=== PATIENT | female | born 1955 | race Caucasian/White ===

== ENCOUNTER 2017-09-12 20:59 | Emergency (ER) | payer OTHER ==
[~2017-09-12] VITALS: Ht 149.9 cm; Wt 100.5 kg
[~2017-09-12 20:59] MED LIST: ATOR-24 PO; DFL100 PO; EFF375 PO; HYDR-4079 PO; HYDR12.56 PO; LANS30TA3 SL; MCRK20 PO; METO50TA17 PO; PLV75 PO; TRAZ-120 PO
[2017-09-12 21:03] VITALS: TEMP 36.9; Ht 149.9 cm; Wt 100.5 kg
[2017-09-12] MEDS ORDERED: ACETAMINOPHEN IV 100 ML IV ONE (22:15)
[2017-09-12 22:36] LABS: BASO % 0.7 %; BASO ABS # 0.05 K/uL (0-0.2); COMPLETE YES; EOS % 7.5 %; HEMATOCRIT 31.1 % (37-47); IG% 0.4 %; LYMPH % 19.6 %; LYMPH ABS # 1.48 K/uL (1.2-3.4); MEAN CELL VOLUME 86.6 fL (80-100); MEAN CORPUSCULAR HEMOGLOBIN 26.2 pg (25-34); MEAN CORPUSCULAR HGB CONC 30.2 g/dl (32-36); MEAN PLATELET VOLUME 10.3 fL (7.4-10.4); MONO % 7.4 %; NEUT % 64.4 %; PLATELET COUNT 240 K/uL (130-400); RED BLOOD COUNT 3.59 M/uL (4.2-5.4); WHITE BLOOD COUNT 7.55 K/uL (4.8-10.8)
[2017-09-12 22:49] LABS: BUN/CREATININE RATIO 9.9 (10-20); CALCIUM 8.6 mg/dl (8.5-10.1); CREATININE 1.26 mg/dl (0.60-1.20); POTASSIUM 3.6 mmol/L (3.5-5.1)
[2017-09-12 22:51] LABS: ALB/GLOB RATIO 0.6 (0.9-2)
[2017-09-12] MEDS ORDERED: CLOP1TAB15 PO (22:57)
[2017-09-12] MEDS ORDERED: METO25TA56 PO (22:58)
[2017-09-12] MEDS ORDERED: VENL150C PO (22:59)
[2017-09-12] MEDS ORDERED: DULO-24 PO (23:01)
[2017-09-12] MEDS ORDERED: PANT40TA PO (23:02)
[2017-09-12] MEDS ORDERED: CEFTRIAXONE SOD INJ 1 GM ADDVIAL IV STA (23:13)
[2017-09-12] MEDS ORDERED: KETOROLAC TROMETHAMINE 30 MG/ML VIAL IV STA (23:22)
[2017-09-13] MEDS ORDERED: SULF800T23 PO (00:01)
[2017-09-13] MEDS ORDERED: CEPH500C PO (00:01)
--- NOTE | 2017-09-13 00:13 | EMERGENCY ROOM VISIT NOTE ---
History First contact with patient: 22:04 Chief Complaint: LEG PAIN,LEG INJURY Stated Complaint: INFECTION IN L LEG History of Present Illness The patient is a 61 year old female who presents to the Emergency Room with complaints of pain in her left leg that has worsened over the past 4 or 5 days. Patient states that she had a mechanical fall about a week ago where she injured the leg. She has been able to walk despite that injury. She noticed today it has increased redness that was not present. She has been taking naproxen at home with no improvement of symptoms. Patient is not diabetic. She is not having fever or chills. She rates her discomfort a 5/10. Review of Systems More than 10 systems were reviewed and otherwise negative with the exception of history of present illness. Past Medical/Surgical History Medical Problems: (1) CKD (chronic kidney disease), stage III (2) Colon cancer (3) GERD (gastroesophageal reflux disease) (4) HTN (hypertension) (5) Osteoarthritis (6) Renal calculi Surgical Problems: (1) H/O ileostomy (2) History of colectomy (3) History of hysterectomy (4) S/P cholecystectomy Family History FH: heart disease FHx: cancer Hypertension Social History Smoking Status: Never Smoker Alcohol Use: none Drug Use: none Marital Status: Housing Status: lives with significant other Occupation Status: retired Current/Historical Medications Scheduled Atorvastatin (Lipitor), 40 MG PO DAILY Cephalexin Monohydrate (Keflex), 500 MG PO TID Clopidogrel (Plavix), 75 MG PO DAILY Duloxetine HCl (Cymbalta), 20 MG PO DAILY Metoprolol Tartrate (Lopressor) (Lopressor), 25 MG PO BID Pantoprazole (Protonix), 40 MG PO BID Sulfa/Trimethoprim (Bactrim Ds 800MG/160MG), 1 TAB PO BID Venlafaxine Hcl (Effexor Xr), 150 MG PO DAILY Physical Exam Vital Signs Date Time Temp Pulse Resp B/P (MAP) Pulse Ox O2 Delivery O2 Flow Rate FiO2 09/12/17 22:53 94 18 126/82 95 Room Air 09/12/17 21:29 94 16 130/82 97 Room Air 09/12/17 21:07 103 09/12/17 21:03 36.9 102 18 179/115 96 Room Air Physical Exam VITALS: Vitals are noted on the nurse's note and reviewed by myself. Vital signs stable. GENERAL: Well-developed, well-nourished, white female, who is in no acute distress and resting comfortably. Patient is cooperative with the examination. HEART: Regular rate and rhythm without murmurs gallops or rubs. LUNGS: Clear to auscultation bilaterally without wheezes, rales or rhonchi. No retractions or accessory muscle use. MUSCULOSKELETAL: There is an obvious cellulitis to the anterior left lower extremity measuring approximately 8 x 6 cm in dimension. There are 2 very shallow abrasions over this did appear to be the cause of the cellulitis. The wounds were cleansed and dressed. There is no posterior calf tenderness. Neurovascular status is intact distally. No lymphangitis patent. NEURO: Patient was alert and oriented to person place and time. CN II through XII grossly intact. Medical Decision & Procedures Laboratory Results 09/12/17 22:10 Red Blood Count 3.59, Mean Corpuscular Volume 86.6, Mean Corpuscular Hemoglobin 26.2, Mean Corpuscular Hemoglobin Concent 30.2, Mean Platelet Volume 10.3, Neutrophils (%) (Auto) 64.4, Lymphocytes (%) (Auto) 19.6, Monocytes (%) (Auto) 7.4, Eosinophils (%) (Auto) 7.5, Basophils (%) (Auto) 0.7, Neutrophils # (Auto) 4.86, Lymphocytes # (Auto) 1.48, Monocytes # (Auto) 0.56, Eosinophils # (Auto) 0.57, Basophils # (Auto) 0.05 09/12/17 22:10 Test 09/12/17 22:10 09/12/17 22:42 White Blood Count 7.55 K/uL (4.8-10.8) Red Blood Count 3.59 M/uL (4.2-5.4) Hemoglobin 9.4 g/dL (12.0-16.0) Hematocrit 31.1 % (37-47) Mean Corpuscular Volume 86.6 fL (80-100) Mean Corpuscular Hemoglobin 26.2 pg (25-34) Mean Corpuscular Hemoglobin Concent 30.2 g/dl (32-36) Platelet Count 240 K/uL (130-400) Mean Platelet Volume 10.3 fL (7.4-10.4) Neutrophils (%) (Auto) 64.4 % Lymphocytes (%) (Auto) 19.6 % Monocytes (%) (Auto) 7.4 % Eosinophils (%) (Auto) 7.5 % Basophils (%) (Auto) 0.7 % Neutrophils # (Auto) 4.86 K/uL (1.4-6.5) Lymphocytes # (Auto) 1.48 K/uL (1.2-3.4) Monocytes # (Auto) 0.56 K/uL (0.11-0.59) Eosinophils # (Auto) 0.57 K/uL (0-0.5) Basophils # (Auto) 0.05 K/uL (0-0.2) RDW Standard Deviation 50.0 fL (36.4-46.3) RDW Coefficient of Variation 15.8 % (11.5-14.5) Immature Granulocyte % (Auto) 0.4 % Immature Granulocyte # (Auto) 0.03 K/uL (0.00-0.02) Anion Gap 8.0 mmol/L (3-11) Est Creatinine Clear Calc Drug Dose 47.7 ml/min Estimated GFR () 52.5 Estimated GFR (Non- 45.3 BUN/Creatinine Ratio 9.9 (10-20) Calcium Level 8.6 mg/dl (8.5-10.1) Total Bilirubin 0.2 mg/dl (0.2-1) Aspartate Amino Transf (AST/SGOT) 14 U/L (15-37) Alanine Aminotransferase (ALT/SGPT) 16 U/L (12-78) Alkaline Phosphatase 99 U/L (45-117) Total Protein 7.1 gm/dl (6.4-8.2) Albumin 2.8 gm/dl (3.4-5.0) Globulin 4.3 gm/dl (2.5-4.0) Albumin/Globulin Ratio 0.6 (0.9-2) Bedside Lactic Acid Venous 1.17 mmol/L (0.90-1.70) Medications Administered Medications (Trade) Dose Ordered Sig/Sarah Route Start Time Stop Time Status Last Admin Dose Admin Acetaminophen 100 ml @ 400 mls/hr NOW ONCE IV 09/12/17 22:15 09/12/17 22:29 DC 09/12/17 22:43 400 MLS/HR Ceftriaxone Sodium (Rocephin Inj) 1 gm NOW STAT IV 09/12/17 23:13 09/12/17 23:14 DC 09/12/17 23:21 1 GM Ketorolac Tromethamine (Toradol Inj) 30 mg NOW STAT IV 09/12/17 23:22 09/12/17 23:23 DC 09/12/17 23:32 30 MG ED Course Physical exam and history were performed. Nursing notes, EMR, and Medication List were personally reviewed. Patient appears to have a cellulitis of her left lower extremity. This appears to have started after she suffered mechanical fall with abrasion to the front of her leg. IV access was established and labs were obtained. Lactic acid was gathered as well as blood cultures. The patient was given Toradol and Tylenol through her IV for comfort. The patient's blood work is as above and was reviewed. She does not have a significantly elevated white blood cell count, gross anemia, bandemia, or significant electrolyte imbalance. Lactic acid is negative. Blood cultures are pending. Overall I suspect the patient's discomfort is from the infection. She was treated here in the department with Rocephin. She will be given outpatient prescriptions for Bactrim and Keflex. The wounds were cleansed and dressed. The patient needs to follow with her primary care physician next few days. She was otherwise invited back to the ER with any new, worsening, or concerning symptoms. The chart was completed utilizing [email or web address] Speech Voice Recognition Software. Grammatical errors, random word insertions, pronoun errors, and incomplete sentences are an occasional consequence of this system due to software limitations, ambient noise, and hardware issues. Any formal questions or concerns about the content, text, or information contained within the body of this dictation should be directly addressed to the provider for clarification. . Medical Decision Differential diagnosis: Etiologies such as cellulitis, abscess, MRSA infection, DVT, necrotizing fasciitis, dermatitis, drug eruption, as well as others were entertained.. Impression Primary Impression: Cellulitis of left leg Departure Information Dispostion Home / Self-Care Condition GOOD Prescriptions Cephalexin Monohydrate (Keflex) 500 Mg Cap 500 MG PO TID for 10 Days, #30 CAP Prov: Abdias Soto PA-C 09/13/17 Sulfa/Trimethoprim (Bactrim Ds 800MG/160MG) Tab 1 TAB PO BID for 10 Days, #20 TAB Prov: Abdias Soto PA-C 09/13/17 Forms HOME CARE DOCUMENTATION FORM, IMPORTANT VISIT INFORMATION Patient Instructions My [facility] Additional Instructions You were seen and evaluated today on an emergency basis only. This is not a substitute for, or an effort to provide, complete comprehensive medical care. It is not possible to recognize and treat all injuries or illnesses in a single emergency department visit. For this reason it is recommended that you followup with your primary care physician this week for ongoing care and evaluation. Trimethoprim-Sulfamethoxazole(Bactrim DS): Take one pill twice daily for 10 days for your skin infection. All antibiotics can cause diarrhea. If this occurs and you feel worse or it does not resolve in 1-2 days follow up with your doctor or return to the Emergency Department as this could be signs of serious underlying problems. Any medication can cause an allergic reaction, stop the pills immediately and return to the ER for rash, hives, breathing difficulties, or swelling. Cephalexin(Keflex) 500mg: Take one pill 3 times daily for 10 days for your skin infection. All antibiotics can cause diarrhea. If this occurs and you feel worse or it does not resolve in 1-2 days follow up with your doctor or return to the Emergency Department as this could be signs of serious underlying problems. Any medication can cause an allergic reaction, stop the pills immediately and return to the ER for rash, hives, breathing difficulties, or swelling. You are welcome to return to the emergency department anytime with new, worsening, or concerning symptoms.
[2017-09-13 00:24] VITALS: BP 118/84; PULSE 91; O2SAT 95
== END 2017-09-13 00:25 | disposition home or self-care (01) ==
LOC: EDBD 20:59 → C.EDC 21:03
DX: L03.116 Cellulitis of left lower limb (principal); I12.9 Hypertensive chronic kidney disease with stage 1 through stage 4 chronic kidney disease, or unspecified chronic kidney disease; N18.3 Chronic kidney disease, stage 3 (moderate); K21.9 Gastro-esophageal reflux disease without esophagitis; M19.90 Unspecified osteoarthritis, unspecified site; Z85.038 Personal history of other malignant neoplasm of large intestine; Z90.710 Acquired absence of both cervix and uterus; Z90.49 Acquired absence of other specified parts of digestive tract; Z93.2 Ileostomy status; Z79.899 Other long term (current) drug therapy; Z82.49 Family history of ischemic heart disease and other diseases of the circulatory system; Z80.9 Family history of malignant neoplasm, unspecified

== ENCOUNTER 2018-05-05 14:31 | Emergency (ER) | payer OTHER ==
[~2018-05-05] VITALS: Ht 149.9 cm; Wt 106.8 kg
[~2018-05-05 14:31] MED LIST changes: +ALBUAER INH; +CLOP1TAB15 PO; -DFL100 PO; -EFF375 PO; +FLUT1SPR12 NAE; +FLVHFA220 INH; +GABA-113 PO; -HYDR-4079 PO; +HYDR-5688 PO; -HYDR12.56 PO; +HYDR25CA PO; -LANS30TA3 SL; +LDDP5 TD; -MCRK20 PO; +METO25TA56 PO; -METO50TA17 PO; +MGNO400 PO; +PANT40TA PO; -PLV75 PO; +PRD20 PO; +RIBO1TAB4 PO; -TRAZ-120 PO; +TRAZ50TA35 PO; +VENL150C56 PO
[2018-05-05 14:35] VITALS: TEMP 36.7; O2SAT 97; Ht 149.9 cm; Wt 106.8 kg
[2018-05-05 15:14] LABS: HEMOGLOBIN 13.9 g/dL (12.0-16.0); MEAN CELL VOLUME 93.4 fL (80-100); MEAN CORPUSCULAR HEMOGLOBIN 29.5 pg (25-34); MEAN CORPUSCULAR HGB CONC 31.6 g/dl (32-36); MEAN PLATELET VOLUME 10.9 fL (7.4-10.4); PLATELET COUNT 219 K/uL (130-400); RED CELL DISTRIBUTION WIDTH CV 17.2 % (11.5-14.5); RED CELL DISTRIBUTION WIDTH SD 58.7 fL (36.4-46.3); WHITE BLOOD COUNT 10.22 K/uL (4.8-10.8)
--- NOTE | 2018-05-05 15:14 | DIAGNOSTIC IMAGING REPORT ---
CHEST ONE VIEW PORTABLE HISTORY: 62 years-old Female CP acute atypical chest pain COMPARISON: Chest radiograph 04/23/2018 TECHNIQUE: Portable AP view of the chest FINDINGS: Cardiomediastinal and hilar silhouettes are within normal limits. No pneumothorax, pleural effusion, focal airspace consolidation or overt pulmonary edema. Degenerative changes of the shoulders and spine. Small hiatal hernia. IMPRESSION: 1. No acute process. 2. Small hiatal hernia. The above report was generated using voice recognition software. It may contain grammatical, syntax or spelling errors. Electronically signed by: Mack Calderon M.D. 05/05/2018 3:13 PM Dictated Date/Time: 05/05/2018 3:12 PM
--- NOTE | 2018-05-05 15:21 | EMERGENCY ROOM VISIT NOTE ---
History Report prepared by Latonya: Bhavin Fenton Under the Supervision of: Dr. Kurt Brock M.D. First contact with patient: 15:01 Chief Complaint: CHEST PAIN Stated Complaint: CHEST PAIN Nursing Triage Summary: Patient arrives via ALS from home with complaints of midsternal chest pain and headache. PT rates pain 8/10. PT was just admitted to hospital from this past Tuesday through Tuesday. Went to her PCP today and they wanted her to come back for same symptoms. EMS administered 2 nitro. PT complaining of SOB. History of Present Illness The patient is a 62 year old female who presents to the Emergency Room with complaints of constant, left-sided chest pain beginning 6 days ago. She currently rates her symptoms an 8/10 in severity. The patient states she was discharged from the hospital on Tuesday for a headache and shortness of breath. She reports her symptoms have been present since. She states she is also short of breath. The patient notes she followed-up with Dr. Chand, PCP today and was sent to the ED. She states she was given nitroglycerin in route, but it did not help her symptoms. The patient denies a history of smoking. Source of History: patient Onset: 6 days ago Position: chest (left) Symptom Intensity: 8/10 Timing: constant Associated Symptoms: + SOB Review of Systems See HPI for pertinent positives and negatives. A total of ten systems were reviewed and were otherwise negative. Past Medical & Surgical Medical Problems: (1) Asthma (2) Chest pain (3) CKD (chronic kidney disease), stage III (4) Colon cancer (5) COPD exacerbation (6) Depression (7) GERD (gastroesophageal reflux disease) (8) HLD (hyperlipidemia) (9) HTN (hypertension) (10) Hypoxia (11) Osteoarthritis (12) Renal calculi Surgical Problems: (1) H/O ileostomy (2) History of colectomy (3) History of hysterectomy (4) S/P cholecystectomy Family History FH: heart disease FHx: cancer Hypertension Social History Smoking Status: Never Smoker Alcohol Use: none Drug Use: none Marital Status: Housing Status: lives with significant other Occupation Status: retired Current/Historical Medications Scheduled Atorvastatin (Lipitor), 40 MG PO DAILY Clopidogrel (Plavix), 75 MG PO DAILY Fluticasone Propionate (Flovent Hfa), 2 PUFFS INH BID Gabapentin (Gabapentin), 300 MG PO TID Lidocaine (Lidocaine), 1 PATCH TOP QAM Magnesium Oxide (Mg Supplement (Magnesium Oxide), 241.3 MG PO QAM Metoprolol Tartrate (Lopressor), 25 MG PO BID Pantoprazole (Protonix), 40 MG PO BID Riboflavin (Riboflavin), 400 MG PO DAILY Trazodone Hcl (Desyrel), 150 MG PO HS Scheduled PRN Fluticasone Propionate (Nasal) (Flonase Allergy Relief Ch), 2 SPRAYS LIONEL DAILY PRN for Allergy Symptoms Hydroxyzine HCl (Hydroxyzine Pamoate), 25 MG PO BID PRN for Anxiety Venlafaxine Hcl (Effexor Extended Rel), 150 MG PO DAILY PRN for Anxiety Allergies Coded Allergies: Salicylates (Verified Allergy, Severe, SHORTNESS OF BREATH, 04/23/18) pruritus and swelling of throat. Meperidine (Unverified Allergy, Intermediate, ITCH, 04/23/18) Morphine and Related (Unverified Allergy, Intermediate, ITCH, 04/23/18) Morphine (Verified Allergy, Mild, ITCHING, 05/26/15) Aspirin (Verified Allergy, Unknown, ., 05/26/15) Hydromorphone (Unverified Allergy, Unknown, RASH/ITCHING, 07/11/14) Iodinated Diagnostic Agents (Verified Allergy, Unknown, `, 04/23/18) Tramadol (Verified Adverse Reaction, Mild, itch, 10/28/14) Physical Exam Vital Signs Date Time Temp Pulse Resp B/P (MAP) Pulse Ox O2 Delivery O2 Flow Rate FiO2 05/05/18 19:07 80 16 132/76 98 05/05/18 18:29 98 05/05/18 16:41 90 17 149/80 96 Room Air 05/05/18 14:56 103 05/05/18 14:35 36.7 100 20 131/90 97 Room Air 05/05/18 14:35 97 Room Air 05/05/18 14:35 97 Room Air Physical Exam Physical Exam GENERAL: She is oriented to person, place, and time. She appears well- developed and well-nourished. She does not appear distressed. HENT: Exam performed. Head: Normocephalic and atraumatic. Right Ear: External ear normal. No mastoid tenderness. Left Ear: External ear normal. No mastoid tenderness. Mouth/Throat: The oropharynx is clear and moist. No trismus in the jaw. No dental abscesses or uvula swelling. No oropharyngeal exudate or tonsillar abscesses. EYES: Conjunctivae and EOM are normal. Pupils are equal, round, and reactive to light. Right eye exhibits no discharge. Left eye exhibits no discharge. No scleral icterus. NECK: Normal range of motion. Neck supple. No JVD present. No spinous process tenderness present. No carotid bruit present. No rigidity. No tracheal deviation and normal range of motion present. No Brudzinski's sign and no Kernig 's sign noted. CV: Normal rate, regular rhythm, normal heart sounds and intact distal pulses. There is no peripheral edema. Palpable radial pulses bue. PULM/CHEST: Effort normal and breath sounds normal. No respiratory distress. No stridor. She has no wheezes. She has no rales. Chest Wall: She exhibits no tenderness. ABD: The abdomen is soft. Bowel sounds are normal. She has no distension. No mass is present. There is no tenderness. There is no rebound, no guarding, no Wylie's sign and no tenderness at McBurney's point. Rovsig negative MUSC/SKEL: Normal range of motion. There is no peripheral edema, tenderness or deformity. LYMPH: No cervical adenopathy. NEURO: She is alert and oriented to person, place, and time. She has normal strength. No cranial nerve deficit or sensory deficit. Coordination and gait normal. GCS eye subscore is 4. GCS verbal subscore is 5. GCS motor subscore is 6. Cerebellar tests wnl. SKIN: Skin is warm and dry. She is not diaphoretic. PSYCH: She has a normal mood and affect. Behavior is normal. Judgment and thought content normal. Medical Decision & Procedures ER Provider Diagnostic Interpretation: X-ray: Per my interpretation, radiologist review. CHEST ONE VIEW PORTABLE HISTORY: 62 years-old Female CP acute atypical chest pain COMPARISON: Chest radiograph 04/23/2018 TECHNIQUE: Portable AP view of the chest FINDINGS: Cardiomediastinal and hilar silhouettes are within normal limits. No pneumothorax, pleural effusion, focal airspace consolidation or overt pulmonary edema. Degenerative changes of the shoulders and spine. Small hiatal hernia. IMPRESSION: 1. No acute process. 2. Small hiatal hernia. The above report was generated using voice recognition software. It may contain grammatical, syntax or spelling errors. Electronically signed by: Mack Calderon M.D. 05/05/2018 3:13 PM Dictated Date/Time: 05/05/2018 3:12 PM Laboratory Results 05/05/18 14:30 05/05/18 14:30 Test 05/05/18 14:30 05/05/18 15:25 05/05/18 18:25 Red Blood Count 4.71 M/uL (4.2-5.4) Mean Corpuscular Volume 93.4 fL (80-100) Mean Corpuscular Hemoglobin 29.5 pg (25-34) Mean Corpuscular Hemoglobin Concent 31.6 g/dl (32-36) RDW Standard Deviation 58.7 fL (36.4-46.3) RDW Coefficient of Variation 17.2 % (11.5-14.5) Mean Platelet Volume 10.9 fL (7.4-10.4) Anion Gap 9.0 mmol/L (3-11) Est Creatinine Clear Calc Drug Dose 45.6 ml/min Estimated GFR () 48.0 Estimated GFR (Non- 41.4 BUN/Creatinine Ratio 23.0 (10-20) Calcium Level 9.6 mg/dl (8.5-10.1) Total Bilirubin 0.2 mg/dl (0.2-1) Aspartate Amino Transf (AST/SGOT) 23 U/L (15-37) Alanine Aminotransferase (ALT/SGPT) 40 U/L (12-78) Alkaline Phosphatase 93 U/L (45-117) Total Creatine Kinase 35 U/L (26-192) Creatine Kinase MB < 1.0 ng/ml (0.5-3.6) Creatine Kinase MB Ratio (0-3.0) Total Protein 7.7 gm/dl (6.4-8.2) Albumin 3.6 gm/dl (3.4-5.0) Globulin 4.1 gm/dl (2.5-4.0) Albumin/Globulin Ratio 0.9 (0.9-2) Chemistry Specimen Hemolysis Prothrombin Time 9.6 SECONDS (9.0-12.0) Prothromb Time International Ratio 0.9 (0.9-1.1) Activated Partial Thromboplast Time 22.0 SECONDS (21.0-31.0) Partial Thromboplastin Ratio 0.8 Bedside Troponin I < 0.030 ng/ml (0-0.045) Laboratory results reviewed by me ECG Per My Interpretation Indication: chest pain Rate (beats per minute): 108 Rhythm: sinus tachycardia Findings: other (VA, QRS, QTc intervals are wnl. No ST depression or ST elevation) ED Course 1514: The patient was evaluated in room C08. A complete history and physical exam was performed.Review of medical records shows the patient had a normal echocardiogram in February. The patient also had a negative heart catheterization two years ago. The patient has a history of anxiety, obesity, opioid abuse, and kidney disease stage III. She was admitted to the hospital from April 25- due to SOB and chest tightness. In the discharge summary, it is listed she has chronic pain. She had a negative BNP and d-dimer on April 23 which was less than two weeks ago. Negative d-dimer on March 02 as well. Her troponin levels were negative x5 during her last hospital admission. 1557: I discussed the patient's case with Dr. Chand, PCP. She was very concerned about the patient's chest pain and shortness of breath. I explained with her the patient had a negative troponin here and five negative troponin levels in the hospital. The patient also had a negative echocardiogram in February 2018 and a negative coronary catheterization in 2015. I asked her to set up an outpatient stress test. Dr. Chand requested I have the hospitalist evaluate the patient for further evaluation. 1616: I discussed the patient's case with NICHOL Zavala, [facility]. I informed her the PCP is requesting evaluation. Radha Abdi will evaluate the patient. The patient will also have a repeat troponin level in 3 hours. 1712: I discussed the patient's case with Dr. Moid [facility]. He states if the patient's repeat troponin is negative, she can be discharged. 1849: Vital signs stable. Repeat troponin is wnl. Patient will be discharged with follow-up PCP. DISCHARGE - Plan of care discussed with patient and questions answered. The patient was given both verbal and printed discharge instructions. The patient verbalized understanding and ability to comply. The patient is to seek outpatient follow up as noted in the discharge instructions. The patient verbalized understanding and ability to comply. The patient is discharged in stable condition. The patient was instructed to return for worsening symptoms. Medical Decision 1514: The patient was evaluated in room C08. A complete history and physical exam was performed.Review of medical records shows the patient had a normal echocardiogram in February. The patient also had a negative heart catheterization two years ago. The patient has a history of anxiety, obesity, opioid abuse, and kidney disease stage III. She was admitted to the hospital from April 25- due to SOB and chest tightness. In the discharge summary, it is listed she has chronic pain. She had a negative BNP and d-dimer on April 23 which was less than two weeks ago. Negative d-dimer on March 02 as well. Her troponin levels were negative x5 during her last hospital admission. 1557: I discussed the patient's case with Dr. Chand, PCP. She was very concerned about the patient's chest pain and shortness of breath. I explained with her the patient had a negative troponin here and five negative troponin levels in the hospital. The patient also had a negative echocardiogram in February 2018 and a negative coronary catheterization in 2015. I asked her to set up an outpatient stress test. Dr. Chand requested I have the hospitalist evaluate the patient for further evaluation. 1616: I discussed the patient's case with NICHOL Zavala, [facility]. I informed her the PCP is requesting evaluation. Radha Abdi will evaluate the patient. The patient will also have a repeat troponin level in 3 hours. 1712: I discussed the patient's case with Dr. Modi [facility]. He states if the patient's repeat troponin is negative, she can be discharged. 1849: Vital signs stable. Repeat troponin is wnl. Patient will be discharged with follow-up PCP. DISCHARGE - Plan of care discussed with patient and questions answered. The patient was given both verbal and printed discharge instructions. The patient verbalized understanding and ability to comply. The patient is to seek outpatient follow up as noted in the discharge instructions. The patient verbalized understanding and ability to comply. The patient is discharged in stable condition. The patient was instructed to return for worsening symptoms. Medication Reconcilliation Current Medication List: was personally reviewed by me Blood Pressure Screening Patient's blood pressure: Elevated blood pressure Blood pressure disposition: Referred to PCP Consults Consulting Physician: Dr. Chand, PCP Returned Call: 1557 I discussed the patient's case with Dr. Chand, PCP. She was very concerned about the patient's chest pain and shortness of breath. I explained with her the patient had a negative troponin here and five negative troponin levels in the hospital. The patient also had a negative echocardiogram in February 2018 and a negative coronary catheterization in 2015. I asked her to set up an outpatient stress test. Dr. Chand requested I have the hospitalist evaluate the patient for further evaluation. Additional Consults: Time Called: 1612 Consulted Physician: NICHOL Zavala [facility] Returned Call: 1616 Additional Comments: I discussed the patient's case with NICHOL Zavala [facility]. I informed her the PCP is requesting evaluation. Radha Abdi will evaluate the patient. The patient will also have a repeat troponin level in 3 hours. Consulted Physician: Heather Hallist Returned Call: 1714 Additional Comments: I discussed the patient's case with Heather Hall. He states if the patient's repeat troponin is negative, she can be discharged. Impression Primary Impression: Chest pain Scribe Attestation The scribe's documentation has been prepared under my direction and personally reviewed by me in its entirety. I confirm that the note above accurately reflects all work, treatment, procedures, and medical decision making performed by me. The chart was completed utilizing [employer] Speech voice recognition software. Grammatical errors, random word insertions, pronoun errors, and incomplete sentences are an occasional consequence of this system due to software limitations, ambient noise, and hardware issues. Any formal questions or concerns about the content, text, or information contained within the body of this dictation should be directly addressed to the physician for clarification. Departure Information Dispostion Home / Self-Care Referrals Toño Naidu M.D. (PCP) Forms Call Back Authorization, HOME CARE DOCUMENTATION FORM, IMPORTANT VISIT INFORMATION Patient Instructions Chest Pain - [facility], [facility] Problem Qualifiers Primary Impression: Chest pain Chest pain type: unspecified Qualified Codes: R07.9 - Chest pain, unspecified
[2018-05-05] MEDS ORDERED: GABA-1219 PO (15:24)
[2018-05-05] MEDS ORDERED: PANT1TAB3 PO (15:24)
[2018-05-05] MEDS ORDERED: RIBO1TAB4 PO (15:24)
[2018-05-05] MEDS ORDERED: LIDO1PAD2 TOP (15:24)
[2018-05-05] MEDS ORDERED: MAGN400T7 PO (15:24)
[2018-05-05] MEDS ORDERED: VST25HP PO (15:24)
[2018-05-05] MEDS ORDERED: LPT40 PO (15:24)
[2018-05-05] MEDS ORDERED: LPR25 PO (15:24)
[2018-05-05] MEDS ORDERED: TRAZ1TAB48 PO (15:24)
[2018-05-05 15:35] LABS: ALBUMIN 3.6 gm/dl (3.4-5.0); ALT/SGPT 40 U/L (12-78); AST/SGOT 23 U/L (15-37); BLOOD UREA NITROGEN 31 mg/dl (7-18); CALCIUM 9.6 mg/dl (8.5-10.1); CARBON DIOXIDE 20 mmol/L (21-32); CREATININE 1.35 mg/dl (0.60-1.20); GLUCOSE 293 mg/dl (70-99); POTASSIUM 4.8 mmol/L (3.5-5.1); SODIUM 140 mmol/L (136-145)
[2018-05-05 15:40] LABS: ALKALINE PHOSPHATASE 93 U/L (45-117); CKMB < 1.0 ng/ml (0.5-3.6); TOTAL PROTEIN 7.7 gm/dl (6.4-8.2)
[2018-05-05 15:50] LABS: INR 0.9 (0.9-1.1)
--- NOTE | 2018-05-05 17:33 | Medical Consult ---
Consultation Date of Consultation: May 05, 2018. Attending Physician: Reason for Consultation: Atypical Chest pain,Anxiety History of Present Illness She is a 62-year-old obese female with significant past medical history including asthma seems to be under control, chronic nonspecific chest pain with negative workup in the past including negative cardiac catheterization. She was 15 from a doctor's office with another attack of chest pain, which has been going on for the last 1 or 2 days, she has some shortness of breath associated with the chest pain, and her pain goes both left and right side of the chest and also at the back, she came to the ER about less than 2 weeks back with similar symptoms and a d-dimer test on 2 occasions and also EKG and cardiac enzymes were unremarkable. Heart pain is nonexertional, precordial and lower central chest, lasts for whole day sometime and is associated with minimal or no shortness of breath.. She is very anxious as well. She denies to have any leg swelling ,any fever or chills, any cough or sputum. Her EKG, troponin, chest x-ray and relevant blood works are unremarkable. She was reassured and she will have another troponin test after 3 hours of presentation and if that is negative she will be discharged home. Past Medical/Surgical History Medical Problems: (1) Asthma exacerbation Status: Acute (2) Bronchitis Status: Acute (3) Cellulitis of left leg Status: Acute (4) Chronic deep vein thrombosis (DVT) of right femoral vein Status: Acute (5) Generalized pain Status: Acute (6) Precordial chest pain Status: Acute Family History FH: heart disease FHx: cancer Hypertension Social History Smoking Status: Never Smoker Smokeless Tobacco Use: Yes Drug Use: none Marital Status: Housing Status: lives with significant other Occupation Status: retired Allergies Coded Allergies: Salicylates (Verified Allergy, Severe, SHORTNESS OF BREATH, 04/23/18) pruritus and swelling of throat. Meperidine (Unverified Allergy, Intermediate, ITCH, 04/23/18) Morphine and Related (Unverified Allergy, Intermediate, ITCH, 04/23/18) Morphine (Verified Allergy, Mild, ITCHING, 05/26/15) Aspirin (Verified Allergy, Unknown, ., 05/26/15) Hydromorphone (Unverified Allergy, Unknown, RASH/ITCHING, 07/11/14) Iodinated Diagnostic Agents (Verified Allergy, Unknown, `, 04/23/18) Tramadol (Verified Adverse Reaction, Mild, itch, 10/28/14) Review of Systems Constitutional: + fatigue Respiratory: + shortness of breath (Minimal) Cardiovascular: + chest pain (Atypical,no associated symptoms) Physical Exam Date Time Temp Pulse Resp B/P (MAP) Pulse Ox O2 Delivery O2 Flow Rate FiO2 05/05/18 16:41 90 17 149/80 96 Room Air 05/05/18 14:56 103 05/05/18 14:35 36.7 100 20 131/90 97 Room Air 05/05/18 14:35 97 Room Air 05/05/18 14:35 97 Room Air General Appearance: no apparent distress (Very anxious) Head: normocephalic Eyes: normal inspection ENT: normal ENT inspection Neck: supple Respiratory/Chest: + pertinent finding (Minimal tenderness lower precordial area) Cardiovascular: regular rate, rhythm, no edema, no gallop Abdomen/GI: normal bowel sounds Extremities/Musculoskelatal: normal inspection Neurologic/Psych: clerk entry level II-XII nml as tested Skin: normal color Lymphatic: no adenopathy Laboratory Results Last 24 Hours Test 05/05/18 14:30 05/05/18 14:55 05/05/18 15:25 White Blood Count 10.22 K/uL Red Blood Count 4.71 M/uL Hemoglobin 13.9 g/dL Hematocrit 44.0 % Mean Corpuscular Volume 93.4 fL Mean Corpuscular Hemoglobin 29.5 pg Mean Corpuscular Hemoglobin Concent 31.6 g/dl RDW Standard Deviation 58.7 fL RDW Coefficient of Variation 17.2 % Platelet Count 219 K/uL Mean Platelet Volume 10.9 fL Sodium Level 140 mmol/L Potassium Level 4.8 mmol/L Chloride Level 111 mmol/L Carbon Dioxide Level 20 mmol/L Anion Gap 9.0 mmol/L Blood Urea Nitrogen 31 mg/dl Creatinine 1.35 mg/dl Est Creatinine Clear Calc Drug Dose 45.6 ml/min Estimated GFR () 48.0 Estimated GFR (Non- 41.4 BUN/Creatinine Ratio 23.0 Random Glucose 293 mg/dl Calcium Level 9.6 mg/dl Total Bilirubin 0.2 mg/dl Aspartate Amino Transf (AST/SGOT) 23 U/L Alanine Aminotransferase (ALT/SGPT) 40 U/L Alkaline Phosphatase 93 U/L Total Creatine Kinase 35 U/L Creatine Kinase MB < 1.0 ng/ml Creatine Kinase MB Ratio Total Protein 7.7 gm/dl Albumin 3.6 gm/dl Globulin 4.1 gm/dl Albumin/Globulin Ratio 0.9 Chemistry Specimen Hemolysis Bedside Troponin I < 0.030 ng/ml Prothrombin Time 9.6 SECONDS Prothromb Time International Ratio 0.9 Activated Partial Thromboplast Time 22.0 SECONDS Partial Thromboplastin Ratio 0.8 Assessment & Plan Atypical chest pain with anxiety. She was in the ER on the of this month and at that time D-dimer test was negative and her EKG and troponins were negative. Her EKG during this admission during evaluation and troponin were unremarkable. During the examination she was not having any acute pain but she looked very anxious. She was reassured and she will have another troponin after 90 minutes of the first one and if that is negative she will be discharged home. She will have appointment with her primary care physician on Tuesday and Tuesday and she will have any stress test in the outpatient. She was agreeable to this approach. The ER physician notified for the second set of troponin to be done. If the d-dimer is elevated she will need to be admitted. Thank you for this consultation. Dr. Alvin perez
[2018-05-05 19:07] VITALS: BP 132/76; PULSE 80; O2SAT 98
== END 2018-05-05 19:09 | disposition home or self-care (01) ==
LOC: C.EDC 14:31 → EDBD 14:31 → C.EDC 19:09
DX: R07.89 Other chest pain (principal); F41.9 Anxiety disorder, unspecified; I82.411 Acute embolism and thrombosis of right femoral vein; I12.9 Hypertensive chronic kidney disease with stage 1 through stage 4 chronic kidney disease, or unspecified chronic kidney disease; N18.3 Chronic kidney disease, stage 3 (moderate); Z79.899 Other long term (current) drug therapy; Z85.038 Personal history of other malignant neoplasm of large intestine; Z82.49 Family history of ischemic heart disease and other diseases of the circulatory system; Z80.3 Family history of malignant neoplasm of breast; Z80.9 Family history of malignant neoplasm, unspecified; Z88.8 Allergy status to other drugs, medicaments and biological substances

== ENCOUNTER 2019-05-16 20:08 | Inpatient (IN) ==
--- OUTSIDE RECORDS SUMMARY | 2019-05-16 20:13 | External Medical Summary | Continuity of Care Document ---
:1955 Author Name Glenda Fernandez, Provider Address Unavailable Unavailable , Care Team Providers Name Role Phone Unavailable Unavailable Unavailable PCP, UNKNOWN Unavailable Unavailable Problems Active medical history not documented Allergies and Adverse Reactions Allergy history not documented Medications Medications not documented Procedures Procedures not documented Immunizations Immunizations not documented Plan of Treatment Planned Observations Planned Goals not documented Results No Known Results Results not documented
[2019-05-16 20:33] LABS: Basophils # (auto) 0.03 K/uL (0-0.2); Basophils % (auto) 0.3 %; Eosinophils # (auto) 0.23 K/uL (0-0.5); Eosinophils % (auto) 2.3 %; Hematocrit (blood only) 37.2 % (37-47); Hemoglobin 11.8 g/dL (12.0-16.0); Immature Granulocytes # (auto) 0.06 K/uL (0.00-0.02); Immature Granulocytes % (auto) 0.6 %; Lymphocytes # (auto) 1.58 K/uL (1.2-3.4); Lymphocytes % (auto) 16.1 %; Mean Corpuscular Hgb Conc 31.7 g/dL (32-36); Mean Corpuscular Volume 92.1 fL (80-100); Mean Platelet Volume 10.4 fL (7.4-10.4); Monocytes # (auto) 0.63 K/uL (0.11-0.59); Monocytes % (auto) 6.4 %; Neutrophils # (auto) 7.29 K/uL (1.4-6.5); Neutrophils % (auto) 74.3 %; Platelet Count 296 K/uL (130-400); RDW Coefficient of Variation 13.9 % (11.5-14.5); RDW Standard Deviation 46.4 fL (36.4-46.3); Red Blood Count 4.04 M/uL (4.2-5.4); White Blood Count 9.82 K/uL (4.8-10.8)
[2019-05-16 20:46] LABS: INR 0.9 (0.9-1.1); Partial Thromboplastin Ratio 0.8; Partial Thromboplastin Time 21.6 Seconds (21.0-31.0); Prothrombin Time 9.7 Seconds (9.0-12.0)
[2019-05-16 20:49] LABS: Alanine Aminotransferase 81 U/L (12-78); Aspartate Aminotransferase 54 U/L (15-37); BUN Creatinine Ratio 8.3 (10-20); Blood Urea Nitrogen 11 mg/dl (7-18); Calcium 9.2 mg/dl (8.5-10.1); Carbon Dioxide 23 mmol/L (21-32); Chloride 107 mmol/L (98-107); Creatinine Clr Calc Pharmacy 44.6 ml/min; Est GFR (African American) 46.8; Est GFR (Non-African American) 40.4; Glucose 181 mg/dl (70-99); Potassium 3.9 mmol/L (3.5-5.1); Sodium 139 mmol/L (136-145)
--- NOTE | 2019-05-16 20:52 | CT Scan Report ---
ABDOMEN AND PELVIS CT WITHOUT CONTRAST CT DOSE: 1277.85 mGy.cm HISTORY: L flank pain TECHNIQUE: Multiaxial CT images of the abdomen and pelvis were performed without contrast. A dose lo wering technique was utilized adhering to the principles of ALARA. COMPARISON STUDY: Abdomen and pelvis CT 05/29/1916. FINDINGS: A few small calcified granulomas seen within the lung bases. Groundglass densities in the l ayesha bases favor mild dependent change. No pneumoperitoneum. No pneumatosis. No suspicious lytic are b lastic osseous lesions. Moderate hiatus hernia, unchanged. Hepatic steatosis. Cholecystectomy. The un enhanced spleen, adrenal glands, and pancreas are unremarkable. No retroperitoneal lymphadenopathy. M ild bladder wall thickening with adjacent fat stranding. The uterus is surgically absent. Suboptimal evaluation for bowel pathology due to the lack of intravenous and oral contrast. However, there is no definite bowel wall thickening or obstruction. Prior subtotal colectomy. There are few small midline ventral hernias containing short segments of small bowel. These remain unchanged. Small presacral gr oundglass densities have slightly progressed. This abuts is of uncertain clinical significance and co uld be due to scarring. Hypodense lesions within the kidneys are technically indeterminate on this no ncontrast study but favor cysts. These are unchanged. The largest in the left kidney measures 8 cm. B ilateral nephrolithiasis, left greater the right. This includes multiple stones within the left renal pelvis with the largest measuring 12 mm. No ureteral stones. No hydronephrosis. Mild urothelial thic kening within the left renal pelvis with adjacent stranding. This has slightly progressed in the inte rval. IMPRESSION: 1. Bilateral nephrolithiasis. No ureteral stones. No hydronephrosis. 2. Mild urothelial thickening and fat stranding in the left renal pelvis. This could be chronic or du e to a pyelitis/pyelonephritis. Recommend correlation with urinalysis. 3. Mild bladder wall thickening with adjacent fat stranding suggestive of a cystitis. 4. Postoperative changes as described above. 5. Moderate hiatus hernia, unchanged. 6. A few small ventral hernias containing short segments of small bowel. No evidence for bowel obstru ction. Electronically signed by: Marcell Marquez M.D. 05/16/2019 8:50 PM
[2019-05-16 20:54] LABS: Albumin Globulin Ratio 0.6 (0.9-2); Alkaline Phosphatase 188 U/L (45-117); Bilirubin,Total 0.2 mg/dl (0.2-1); D Dimer 770 ug/L FEU (0-500); Globulin 4.9 gm/dl (2.5-4.0); NT Pro B Type Natriuretic Pept 58 pg/ml (0-900); Total Protein 7.9 gm/dl (6.4-8.2); Troponin I < 0.015 ng/ml (0-0.045)
--- NOTE | 2019-05-16 21:01 | XRay Report ---
XR knee RT 3V CLINICAL HISTORY: fall. Right knee pain. COMPARISON STUDY: None. FINDINGS: No acute fracture or dislocation within the right knee. Mild cartilage space narrowing with in the medial compartment with small tricompartmental marginal osteophytes. There is also severe cart ilage space narrowing within the lateral patellofemoral compartment with [id number] articulation. N o significant knee effusion. Soft tissues are unremarkable. There is a 5 mm subchondral lucency with surrounding sclerosis at the medial femoral condyle. This favors an osteochondral defect. IMPRESSION: 1. No acute fracture or dislocation within the right knee. 2. 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 3. A 5 mm subchondral lucency with surrounding sclerosis at the medial femoral condyle. This favors a n osteochondral defect. Electronically signed by: Marcell Marquez M.D. 05/16/2019 9:00 PM
--- NOTE | 2019-05-16 21:03 | XRay Report ---
XR chest 1V portable HISTORY: Dyspnea COMPARISON: Chest 08/29/2019. FINDINGS: Low lung volumes. The heart is normal in size. Moderate hiatus hernia. The lungs are clear. No pleural effusions. No pneumothorax. No acute rib fractures identified. IMPRESSION: No significant change compared to the prior study. No acute process. Electronically signed by: Marcell Marquez M.D. 05/16/2019 9:02 PM
[2019-05-16] MEDS ORDERED: ALBUT/IPRATROP 3MG/0.5MG NEB 3 ML VIAL NEB STA (21:07)
[2019-05-16] MEDS ORDERED: methylPREDNISolone 60 MG in SYRINGE 0 ML IV ONE (21:23)
[2019-05-16] MEDS ORDERED: ACETAMINOPHEN 1,000 MG/100 ML VIAL IV STA (21:51)
[2019-05-16] MEDS ORDERED: SODIUM CHLORIDE 0.9% 1000ML 1,000 ML IV ONE (21:51)
[2019-05-16 21:58] LABS: Appearance Urine Turbid (Clear); Bacteria Urine Automated 4+ (Negative); Bilirubin Urine Negative (Negative); Blood Urine 3+ (Negative); Color Urine Dark Yellow; Glucose Urine UA Negative (Negative); Ketones Urine Negative (Negative); Leukocyte Esterase Urine 3+ (Negative); Nitrite Urine Positive (Negative); Protein Urine 2+ (Negative); RBC Urine Automated >30 /hpf (0-4); Specific Gravity Urine 1.023 (1.000-1.030); Urobilinogen Urine Negative (Negative); WBC Urine Automated >30 /hpf (0-5)
[2019-05-16] MEDS: CEFEPIME 2,000 MG/20 ML VIAL IV STA ×2 (22:15→22:40)
--- NOTE | 2019-05-16 22:16 | Emergency Department Note ---
Entered by Martin De Oliveira acting as a scribe for Toy Blevins M.D. History of Present Illness General Chief complaint: Shortness of Breath/Dyspnea Stated complaint: resp distress Source: patient History of Present Illness Provider complaint: Shortness of breath Onset (ago): day(s) 2 Location: chest Pain Consistency: + constant Relieved By: + medication Exacerbated By: + none Associated symptoms: + chest pain, + cough, + fever/chills, + loss of appetite and + nausea/vomiting (No vomiting) The patient is a 63 year old female who presents to the Emergency Room via EMS with complaints of constant shortness of breath that started about 2 days ago. The patient notes that she also has been running a fever and has had chills over the past couple of days. She notes that prior to arrival she took 2 Tylenol which did seem to help lower her fever. Per the nurse, the patient had a recent fall and injured her right knee as a result. The patient also has some left sided flank pain that started recently. Due to her flank pain she has some nausea causing her to not eat as much as she normally does. She also has some diarrhea but notes this has been chronic since she had the procedure to treat her colon cancer. To try to relieve her shortness of breath, the patient states she has been using breathing treatments at home but they have not been working. En route, the patient received a breathing treatment that she notes burned her chest but did help relieve her chest pressure. The patient has a history of COPD but only uses oxygen at night. 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 Home Medications Home Medications Medication Instructions Recorded Confirmed Type atorvastatin [Lipitor] 40 mg PO QPM 07/12/18 05/16/19 History clopidogrel [Plavix] 75 mg PO QPM 07/12/18 05/16/19 History gabapentin 300 mg PO TID 07/12/18 05/16/19 History hydroxyzine HCl 25 mg PO BID PRN 07/12/18 05/16/19 History magnesium oxide 400 mg PO QAM 07/12/18 05/16/19 History pantoprazole [Protonix] 40 mg PO BID 07/12/18 05/16/19 History riboflavin (vitamin B2) 400 mg PO QPM 07/12/18 05/16/19 History metoprolol succinate 37.5 mg PO BID 11/29/18 08/07/19 History oxcarbazepine 600 mg PO QPM 09/07/18 05/16/19 History cholecalciferol (vitamin D3) 4,000 unit PO DAILY 10/16/18 05/16/19 History [Vitamin D3] duloxetine 60 mg PO DAILY 10/16/18 05/16/19 History albuterol sulfate 2.5 mg INHALATION Q4H PRN 05/16/19 05/16/19 History budesonide 1 mg INHALATION BID PRN 05/16/19 05/16/19 History doxepin 150 mg PO HS 05/16/19 05/16/19 History oxcarbazepine 300 mg PO QAM 05/16/19 05/16/19 History Allergies Allergy/AdvReac Type Severity Reaction Status Date / Time salicylates Allergy Severe SHORTNESS Verified 10/16/18 00:34 OF BREATH Iodinated Contrast- Oral and Allergy Intermediate EYES Verified 10/16/18 00:34 IV Dye SWELLING meperidine Allergy Intermediate ITCH Verified 10/16/18 00:34 morphine Allergy Intermediate ITCH Verified 10/16/18 00:34 aspirin Allergy Mild FACIAL Verified 10/16/18 00:34 SWELLING hydromorphone Allergy Mild RASH/ITCHIN Verified 10/16/18 00:34 G tramadol AdvReac Mild itch Verified 10/16/18 00:34 Past Med/Surg History Social History Preferred Language: Belarusian Communication Ability: Effective 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 and A total of 10 systems reviewed and were otherwise negative Physical Exam Vital Signs Vital Signs - 24 hr 05/16/19 20:20 05/16/19 20:22 05/16/19 21:30 Temperature 37.4 C Temperature Source Oral Sepsis Recent Fever Within 48 Hours Yes Sepsis New/Unexplained Change in Mental Status No Sepsis Action Taken by Nursing Physician Notified Pulse Rate 122 H Pulse Rate [Right Finger] Respiratory Rate 22 Respiratory Effort / Characteristics Blood Pressure 147/98 H Blood Pressure [Right Arm] Blood Pressure Mean 114 Blood Pressure Mean [Right Arm] Pulse Oximetry 95 Oxygen Delivery Method Room Air Room Air Room Air 05/16/19 21:33 05/16/19 21:40 05/16/19 22:39 Temperature Temperature Source Sepsis Recent Fever Within 48 Hours Sepsis New/Unexplained Change in Mental Status Sepsis Action Taken by Nursing Pulse Rate Pulse Rate [Right Finger] 111 H 113 H 119 H Respiratory Rate 18 18 20 Respiratory Effort / Characteristics Non-Labored Spontaneous Blood Pressure Blood Pressure [Right Arm] 156/95 H 147/94 H Blood Pressure Mean Blood Pressure Mean [Right Arm] 115 111 Pulse Oximetry 97 96 95 Oxygen Delivery Method Room Air Room Air Room Air GENERAL: Awake, alert, weak-appearing, in no distress HENT: Normocephalic, atraumatic. Oropharynx unremarkable. EYES: Normal conjunctiva. Sclera non-icteric. NECK: Supple. No nuchal rigidity. RESPIRATORY: Diminished breath sounds but clear to auscultation. No wheezes. Normal respiratory effort. CARDIAC: Normal rate. Normal rhythm. Extremities warm and well perfused. GI: Soft, non-distended. No tenderness to palpation. No rebound or guarding. No masses. RECTAL: Deferred. MUSCULOSKELETAL: Atraumatic. Chest examination reveals no tenderness. Moderate left sided flank tenderness. LOWER EXTREMITIES: Calves are equal size bilaterally and non-tender. 1+ lower extremity swelling. Right knee tenderness. NEURO: Normal sensorium. No sensory or motor deficits noted. No facial droop. SKIN: Warm and dry. No rash or jaundice noted. Course 2015: Past medical records reviewed. The patient was evaluated in room B07, and a complete history and physical examination were performed. 3: I reevaluated and updated the patient on results obtained thus far. We also discussed the treatment plan. She fully understands and is in agreement with the plan. 2: I spoke to [facility] about the patient's case and he will be accepting the patient for further evaluation. Consultations Consultation #1: I spoke to Dr. Sreekanth kasper about the ezra tay's case and he will be accepting the patient for further evaluation. Time: 22:12 Administered Medications Discontinued Medications Albuterol (Duoneb) 3 ml NEB NOW STA Stop: 05/16/19 21:08 Last Admin: 05/16/19 21:31 Dose: 3 ml Documented by: [id number] Methylprednisolone 60 mg/ (Syringe) 0.96 mls @ 1.5 mls/min IV NOW ONE Stop: 05/16/19 21:24 Last Admin: 05/16/19 22:15 Dose: 1.5 mls/min Documented by: [id number] Acetaminophen (Ofirmev) 1,000 mg in 100 mls @ 400 mls/hr IV NOW STA Stop: 05/16/19 22:05 Last Admin: 05/16/19 22:15 Dose: 400 mls/hr Documented by: [id number] Sodium Chloride (Nss 1000ml) 1,000 mls @ 999 mls/hr IV .Q1H1M ONE Stop: 05/16/19 22:51 Last Admin: 05/16/19 22:16 Dose: 999 mls/hr Documented by: [id number] Cefepime HCl (Maxipime) 2,000 mg in 20 mls @ 5 mls/min IV NOW STA; Protocol Stop: 05/16/19 22:06 Last Admin: 05/16/19 22:40 Dose: 5 mls/min Documented by: [id number] Medical Decision Making Differential Diagnosis Differential diagnoses includes but is not limited to pneumonia, bronchitis, COPD/Asthma exacerbation, pneumothorax, pulmonary embolism, congestive heart failure, acute coronary syndrome, dehydration, stroke, anemia, hypoglycemia, hyponatremia, hypernatremia, urinary tract infection, pneumonia, bronchitis, sepsis, gastroenteritis, additional abdominal pathology, metabolic abnormalities and infections. Medical Records Attestation: I reviewed the patient's medical records. Home Medications Current Medication List: was personally reviewed by me Laboratory Data Attestation: I reviewed the patient's lab results. Result diagrams: 05/16/19 19:51 05/16/19 19:51 Lab Results 05/16/19 05/16/19 05/16/19 Range/Units 19:51 19:51 19:51 WBC 9.82 (4.8-10.8) K/uL RBC 4.04 L (4.2-5.4) M/uL Hgb 11.8 L (12.0-16.0) g/dL Hct 37.2 (37-47) % MCV 92.1 (80-100) fL MCH 29.2 (25-34) pg MCHC 31.7 L (32-36) g/dL RDW Std Deviation 46.4 H (36.4-46.3) fL RDW Coeff of Teresa 13.9 (11.5-14.5) % Plt Count 296 (130-400) K/uL MPV 10.4 (7.4-10.4) fL Immature Gran % (Auto) 0.6 % Neut % (Auto) 74.3 % Lymph % (Auto) 16.1 % [place] % (Auto) 6.4 % Eos % (Auto) 2.3 % Baso % (Auto) 0.3 % Immature Gran # (Auto) 0.06 H (0.00-0.02) K/uL Neut # (Auto) 7.29 H (1.4-6.5) K/uL Lymph # (Auto) 1.58 (1.2-3.4) K/uL [place] # (Auto) 0.63 H (0.11-0.59) K/uL Eos # (Auto) 0.23 (0-0.5) K/uL Baso # (Auto) 0.03 (0-0.2) K/uL PT (9.0-12.0) Seconds INR (0.9-1.1) APTT (21.0-31.0) Seconds PTT Ratio D-Dimer 770 H* (0-500) ug/L FEU Sodium (136-145) mmol/L Potassium (3.5-5.1) mmol/L Chloride (98-107) mmol/L Carbon Dioxide (21-32) mmol/L Anion Gap (3-11) BUN (7-18) mg/dl Creatinine (0.6-1.2) mg/dl Est Cr Clr Drug Dosing ml/min Est GFR ( Amer) Est GFR (Non-Af Amer) BUN/Creatinine Ratio (10-20) Glucose (70-99) mg/dl Lactate (0.4-2.0) mmol/L Calcium (8.5-10.1) mg/dl Total Bilirubin (0.2-1) mg/dl AST (15-37) U/L ALT (12-78) U/L Alkaline Phosphatase (45-117) U/L Troponin I Cancelled NT-Pro-B Natriuret Pep Cancelled Total Protein (6.4-8.2) gm/dl Albumin (3.4-5.0) gm/dl Globulin (2.5-4.0) gm/dl Albumin/Globulin Ratio (0.9-2) Urine Color Urine Appearance (Clear) Urine pH (4.5-7.5) Ur Specific [place] (1.000-1.030) Urine Protein (Negative) Urine Glucose (UA) (Negative) Urine Ketones (Negative) Urine Blood (Negative) Urine Nitrite (Negative) Urine Bilirubin (Negative) Urine Urobilinogen (Negative) Ur Leukocyte Esterase (Negative) Urine WBC (Auto) (0-5) /hpf Urine RBC (Auto) (0-4) /hpf U Hyaline Cast (Auto) (0-5) /lpf U Epithel Cells (Auto) (0-5) /lpf Urine Bacteria (Auto) (Negative) Urine Yeast 05/16/19 05/16/19 05/16/19 Range/Units 19:51 19:51 21:45 WBC (4.8-10.8) K/uL RBC (4.2-5.4) M/uL Hgb (12.0-16.0) g/dL Hct (37-47) % MCV (80-100) fL MCH (25-34) pg MCHC (32-36) g/dL RDW Std Deviation (36.4-46.3) fL RDW Coeff of Teresa (11.5-14.5) % Plt Count (130-400) K/uL MPV (7.4-10.4) fL Immature Gran % (Auto) % Neut % (Auto) % Lymph % (Auto) % [place] % (Auto) % Eos % (Auto) % Baso % (Auto) % Immature Gran # (Auto) (0.00-0.02) K/uL Neut # (Auto) (1.4-6.5) K/uL Lymph # (Auto) (1.2-3.4) K/uL [place] # (Auto) (0.11-0.59) K/uL Eos # (Auto) (0-0.5) K/uL Baso # (Auto) (0-0.2) K/uL PT 9.7 (9.0-12.0) Seconds INR 0.9 (0.9-1.1) APTT 21.6 (21.0-31.0) Seconds PTT Ratio 0.8 D-Dimer (0-500) ug/L FEU Sodium 139 (136-145) mmol/L Potassium 3.9 (3.5-5.1) mmol/L Chloride 107 (98-107) mmol/L Carbon Dioxide 23 (21-32) mmol/L Anion Gap 9.0 (3-11) BUN 11 (7-18) mg/dl Creatinine 1.37 H (0.6-1.2) mg/dl Est Cr Clr Drug Dosing 44.6 ml/min Est GFR ( Amer) 46.8 Est GFR (Non-Af Amer) 40.4 BUN/Creatinine Ratio 8.3 L (10-20) Glucose 181 H (70-99) mg/dl Lactate (0.4-2.0) mmol/L Calcium 9.2 (8.5-10.1) mg/dl Total Bilirubin 0.2 (0.2-1) mg/dl AST 54 H (15-37) U/L ALT 81 H (12-78) U/L Alkaline Phosphatase 188 H (45-117) U/L Troponin I < 0.015 NT-Pro-B Natriuret Pep 58 Total Protein 7.9 (6.4-8.2) gm/dl Albumin 3.0 L (3.4-5.0) gm/dl Globulin 4.9 H (2.5-4.0) gm/dl Albumin/Globulin Ratio 0.6 L (0.9-2) Urine Color Dark Yellow Urine Appearance Turbid A (Clear) Urine pH 5.0 (4.5-7.5) Ur Specific [place] 1.023 (1.000-1.030) Urine Protein 2+ H (Negative) Urine Glucose (UA) Negative (Negative) Urine Ketones Negative (Negative) Urine Blood 3+ H (Negative) Urine Nitrite Positive A (Negative) Urine Bilirubin Negative (Negative) Urine Urobilinogen Negative (Negative) Ur Leukocyte Esterase 3+ H (Negative) Urine WBC (Auto) >30 H (0-5) /hpf Urine RBC (Auto) >30 H (0-4) /hpf U Hyaline Cast (Auto) 1-5 (0-5) /lpf U Epithel Cells (Auto) 10-20 H (0-5) /lpf Urine Bacteria (Auto) 4+ H (Negative) Urine Yeast Not Reportable 05/16/19 Range/Units 22:33 WBC (4.8-10.8) K/uL RBC (4.2-5.4) M/uL Hgb (12.0-16.0) g/dL Hct (37-47) % MCV (80-100) fL MCH (25-34) pg MCHC (32-36) g/dL RDW Std Deviation (36.4-46.3) fL RDW Coeff of Teresa (11.5-14.5) % Plt Count (130-400) K/uL MPV (7.4-10.4) fL Immature Gran % (Auto) % Neut % (Auto) % Lymph % (Auto) % [place] % (Auto) % Eos % (Auto) % Baso % (Auto) % Immature Gran # (Auto) (0.00-0.02) K/uL Neut # (Auto) (1.4-6.5) K/uL Lymph # (Auto) (1.2-3.4) K/uL [place] # (Auto) (0.11-0.59) K/uL Eos # (Auto) (0-0.5) K/uL Baso # (Auto) (0-0.2) K/uL PT (9.0-12.0) Seconds INR (0.9-1.1) APTT (21.0-31.0) Seconds PTT Ratio D-Dimer (0-500) ug/L FEU Sodium (136-145) mmol/L Potassium (3.5-5.1) mmol/L Chloride (98-107) mmol/L Carbon Dioxide (21-32) mmol/L Anion Gap (3-11) BUN (7-18) mg/dl Creatinine (0.6-1.2) mg/dl Est Cr Clr Drug Dosing ml/min Est GFR ( Amer) Est GFR (Non-Af Amer) BUN/Creatinine Ratio (10-20) Glucose (70-99) mg/dl Lactate 1.5 (0.4-2.0) mmol/L Calcium (8.5-10.1) mg/dl Total Bilirubin (0.2-1) mg/dl AST (15-37) U/L ALT (12-78) U/L Alkaline Phosphatase (45-117) U/L Troponin I NT-Pro-B Natriuret Pep Total Protein (6.4-8.2) gm/dl Albumin (3.4-5.0) gm/dl Globulin (2.5-4.0) gm/dl Albumin/Globulin Ratio (0.9-2) Urine Color Urine Appearance (Clear) Urine pH (4.5-7.5) Ur Specific [place] (1.000-1.030) Urine Protein (Negative) Urine Glucose (UA) (Negative) Urine Ketones (Negative) Urine Blood (Negative) Urine Nitrite (Negative) Urine Bilirubin (Negative) Urine Urobilinogen (Negative) Ur Leukocyte Esterase (Negative) Urine WBC (Auto) (0-5) /hpf Urine RBC (Auto) (0-4) /hpf U Hyaline Cast (Auto) (0-5) /lpf U Epithel Cells (Auto) (0-5) /lpf Urine Bacteria (Auto) (Negative) Urine Yeast Imaging Data Radiologist's Impression: Radiology results as stated below per my review and the radiologist's interpretation: XR chest 1V portable HISTORY: Dyspnea COMPARISON: Chest 08/29/2019. FINDINGS: Low lung volumes. The heart is normal in size. Moderate hiatus hernia. The lungs are clear. No pleural effusions. No pneumothorax. No acute rib fractures identified. IMPRESSION: No significant change compared to the prior study. No acute process. Electronically signed by: Marcell Marquez M.D. 05/16/2019 9:02 PM XR knee RT 3V CLINICAL HISTORY: fall. Right knee pain. COMPARISON STUDY: None. FINDINGS: No acute fracture or dislocation within the right knee. Mild cartilage space narrowing within the medial compartment with small tricompartmental marginal osteophytes. There is also severe cartilage space narrowing within the lateral patellofemoral compartment with [id number] articulation. No significant knee effusion. Soft tissues are unremarkable. There is a 5 mm subchondral lucency with surrounding sclerosis at the medial femoral condyle. This favors an osteochondral defect. IMPRESSION: 1. No acute fracture or dislocation within the right knee. 2. 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 3. A 5 mm subchondral lucency with surrounding sclerosis at the medial femoral condyle. This favors an osteochondral defect. Electronically signed by: Marcell Marquez M.D. 05/16/2019 9:00 PM ABDOMEN AND PELVIS CT WITHOUT CONTRAST CT DOSE: 1277.85 mGy.cm HISTORY: L flank pain TECHNIQUE: Multiaxial CT images of the abdomen and pelvis were performed without contrast. A dose lowering technique was utilized adhering to the principles of ALARA. COMPARISON STUDY: Abdomen and pelvis CT 05/29/1916. FINDINGS: A few small calcified granulomas seen within the lung bases. Groundg lass densities in the lung bases favor mild dependent change. No pneumoperitoneum. No pneumatosis. No suspicious lytic are blastic osseous lesions. Moderate hiatus hernia, unchanged. Hepatic steatosis. Cholecystectomy. The unenhanced spleen, adrenal glands, and pancreas are unremarkable. No retroperitoneal lymphadenopathy. Mild bladder wall thickening with adjacent fat stranding. The uterus is surgically absent. Suboptimal evaluation for bowel pathology due to the lack of intravenous and oral contrast. However, there is no definite bowel wall thickening or obstruction. Prior subtotal colectomy. There are few small midline ventral hernias containing short segments of small bowel. These remain unchanged. Small presacral groundglass densities have slightly progressed. This abuts is of uncertain clinical significance and could be due to scarring. Hypodense lesions within the kidneys are technically indeterminate on this noncontrast study but favor cysts. These are unchanged. The largest in the left kidney measures 8 cm. Bilateral nephrolithiasis, left greater the right. This includes multiple stones within the left renal pelvis with the largest measuring 12 mm. No ureteral stones. No hydronephrosis. Mild urothelial thickening within the left renal pelvis with adjacent stranding. This has slightly progressed in the interval. IMPRESSION: 1. Bilateral nephrolithiasis. No ureteral stones. No hydronephrosis. 2. Mild urothelial thickening and fat stranding in the left renal pelvis. This could be chronic or due to a pyelitis/pyelonephritis. Recommend correlation with urinalysis. 3. Mild bladder wall thickening with adjacent fat stranding suggestive of a cystitis. 4. Postoperative changes as described above. 5. Moderate hiatus hernia, unchanged. 6. A few small ventral hernias containing short segments of small bowel. No evidence for bowel obstruction. Electronically signed by: Marcell Marquez M.D. 05/16/2019 8:50 PM ECG Data Attestation: I personally reviewed and interpreted this ECG as follows: Indication: tachycardia Rate (beats per minute): 121 Rhythm: sinus tachycardia Findings: + other (Normal intervals ); no PVC, no ST depression and no ST elevation Blood Pressure Blood Pressure Findings: Elevated blood pressure Blood Pressure Disposition: further management by hospitalist CAMILA Narrative Patient is a 63-year-old female with history of COPD reported, kidney disease, hypertension, hyperlipidemia presenting today complaining of multiple things. Endorses some fever and weakness at home with shortness of breath. Initial reason why she called EMS. Feeling a little bit better after DuoNeb and albuterol treatment in route. States she wears BiPAP at night but has also been trying her nebulizers at home without improvement. Also complaining of left flank pain. Denies trauma for this. No other significant abdominal pain. Does endorse some nausea at times. Also complaining of right knee pain states she fell several days ago. Some swelling of the bilateral legs noted. Patient states she is been having some fevers afebrile upon arrival but states she is taken some Tylenol. No focal neurological deficit I doubt acute stroke. EKG and troponin were sent to exclude cardiac ischemia. D-dimer sent to help lower suspicion for PE given her complaints and limited mobility and this unf ortunately came out positive. Does relate a history of IV dye allergy. Given this will need further evaluation as an inpatient for PE possible pretreatment versus VQ. Chest x-ray without evidence of pneumonia or fluid overload. Ultrasound lower extremities ordered to exclude DVT. X-ray of the right knee to exclude fracture given traumatic history is completed. CT of the abdomen pelvis without contrast given contrast allergy completed to exclude evidence of nephrolithiasis or other acute surgical intra-abdominal pathology. Again not significantly tender across the abdomen generally so lower suspicion for perforation or acute surgical emergency. Given additional DuoNeb here and a small amount of steroids to see if this help with her breathing status. Urinalysis does come back appearing grossly positive and CT is concerning for UTI and pyelonephritis and left flank pain;will treat. Lactate and blood cultures were obtained. Will give a dose of cefepime for broad coverage. A normal saline bolus was ordered. Patient made aware and discussed with the hospitalist for admission. Hospitalist was made aware of the positive d-dimer and the need for further evaluation here. Patient later inquired about breast lumps that she wished to have a mammogram and ultrasound formal. Did discuss with her that this could have further work-up once her infection and breathing are improved. Impression & Plan Acute pyelonephritis, Acute pain of right knee, SOB (shortness of breath), Weakness Discharge Plan Visit Data Chief Complaint: Shortness of Breath/Dyspnea Stated Complaint: resp distress ED Provider: Toy Blevins Discharge Problem: Acute pyelonephritis, Acute pain of right knee, SOB (shortness of breath), Weakness Patient Disposition: Being Evaluated by Hospitalist Forms Stand Alone Forms: My [facility] Prescriptions Prescriptions: No Action atorvastatin [Lipitor] 40 mg Tablet 40 mg PO QPM RF: 0 clopidogrel [Plavix] 75 mg Tablet 75 mg PO QPM RF: 0 magnesium oxide 400 mg (241.3 mg magnesium) Tablet 400 mg PO QAM RF: 0 pantoprazole [Protonix] 40 mg Tablet,Delayed Release (Dr/Ec) 40 mg PO BID RF: 0 gabapentin 300 mg Capsule 300 mg PO TID RF: 0 hydroxyzine HCl 25 mg Tablet 25 mg PO BID PRN (Reason: Anxiety) RF: 0 riboflavin (vitamin B2) 400 mg Tablet 400 mg PO QPM RF: 0 metoprolol succinate 25 mg tablet extended release 24 hr 37.5 mg PO BID RF: 0 oxcarbazepine 300 mg tablet 600 mg PO QPM RF: 0 duloxetine 60 mg Capsule,Delayed Release(Dr/Ec) 60 mg PO DAILY RF: 0 Vitamin D3 4,000 unit Capsule 4,000 unit PO DAILY RF: 0 oxcarbazepine 300 mg tablet 300 mg PO QAM RF: 0 doxepin 150 mg capsule 150 mg PO HS RF: 0 albuterol sulfate 2.5 mg /3 mL (0.083 %) Solution For Nebulization 2.5 mg inhalation Q4H PRN (Reason: Shortness Of Breath Or Wheezing) RF: 0 budesonide 1 mg/2 mL suspension for nebulization 1 mg inhalation BID PRN (Reason: Shortness Of Breath Or Wheezing) RF: 0 Referrals Referrals: Toño Naidu MD [Primary Care Provider] - The scribe's documentation has been prepared under my direction and personally reviewed by me in its entirety. I confirm that the note above accurately reflects all work, treatment, procedures, and medical decision making performed by me.
--- NOTE | 2019-05-16 23:00 | Ultrasound Report ---
BILATERAL LOWER EXTREMITY VENOUS DOPPLER HISTORY: Leg swelling COMPARISON STUDY: None. FINDINGS: There is normal compressibility, flow, and augmentation within the bilateral lower extremit y deep venous systems. IMPRESSION: No DVT within the right or left lower extremity. Electronically signed by: Marcell Marquez M.D. 05/16/2019 10:58 PM
[2019-05-17] MEDS ORDERED: ALBUTEROL 0.083% NEBU SOLN 3 ML VIAL INH PRN (00:21)
[2019-05-17] MEDS ORDERED: POLYETHYLENE (MIRALAX) 17 GM PACK PO PRN (00:21)
[2019-05-17] MEDS ORDERED: NITROGLYCERIN SL 0.4 MG/TAB TAB SL PRN (00:21)
[2019-05-17] MEDS ORDERED: ACETAMINOPHEN 325 MG TAB PO PRN (00:21)
[2019-05-17] MEDS ORDERED: CEFEPIME CONSULT ACTIVE PRN (00:26)
--- NOTE | 2019-05-17 00:38 | History and Physical Report ---
DATE OF ADMISSION: 05/16/2019 CHIEF COMPLAINT: Chills and shortness of breath at home and also back pain and left-sided flank pain. HISTORY OF PRESENT ILLNESS: This is a 63-year-old female with past medical history significant for hyperlipidemia, obstructive sleep apnea, oropharyngeal dysphagia, hypertension, reflux esophagitis, morbid obesity, chronic kidney disease stage III, calculus of kidney, left renal cyst, rosacea, lumbar degenerative disc disease, history of opiate withdrawal, history of anemia, history of colon cancer, status post surgery, history of anxiety and depression who presents with not feeling well, shortness of breath, left flank pain and chills going for a week. The patient lives alone. She states she ambulates with a walker and sometimes uses wheelchair and sometimes a cane. She has caregivers who come a couple of times every day in the morning and evening . When the caregiver came to check on her today, she was covered with blanket, sweating with chills. There was a question of some fever and she was short of breath and they waited for some time, but she still feels the same and they brought her here. She was tachycardic in the Emergency Room but she was saturating okay on room air. Blood pressure was okay. There was no temperature spike. CAT scan of the abdomen and pelvis showed left-sided pyelonephritis. Urinalysis was positive. So, we are called for possible sepsis and pyelonephritis. The patient is currently resting comfortably and hemodynamically stable except for tachycardia. She states she gets chest discomfort like burning sensation whenever she uses the neb treatments. Currently shortness of breath improved, talking clearly in sentences, not in respiratory distress, has some headaches. She always has some dizziness and some blurred vision from her medications. Denies any earache. No runny nose. No sore throat. No cough. She has difficulty swallowing for the meats sometimes. No nausea. No vomiting. She has some lower abdominal discomfort. Denies any blood in stools or black stools. Denies any burning micturition or blood in the urine. No swelling in the legs. No rash. Appetite is not great since last 1 week, not sleeping well since about a week, requests for pain medications. ALLERGIES: TRAMADOL, I.V. DYE, MEPERIDINE, MORPHINE, ASPIRIN, HYDROMORPHONE AND TRAMADOL. PAST MEDICAL HISTORY: As mentioned above. PAST SURGICAL HISTORY: Left benign breast excision, colonoscopy, esophagogastroduodenoscopy, flexible sigmoidoscopy, CT-guided aspiration biopsy, laparoscopic total colectomy with ileostomy, removal of kidney stone had seven different procedures in the left kidney for stones, cholecystectomy, sigmoidoscopy with biopsy and total hysterectomy. MEDICATIONS: The patient is on Toprol-XL 37.5 mg p.o. b.i.d., Cymbalta 60 mg p.o. daily, Lipitor 40 mg p.o. daily, gabapentin 300 mg p.o. t.i.d., Protonix 40 mg p.o. b.i.d., Plavix 75 mg p.o. daily, Pulmicort INH b.i.d., vitamin D 2000 units p.o. daily, Effexor XR 150 mg p.o. daily, magnesium oxide 400 mg p.o. daily, riboflavin 400 mg p.o. daily, Trileptal 300 mg p.o. b.i.d., albuterol 2 puffs every 4 hours p.r.n. and hydroxyzine 25 mg p.o. b.i.d. p.r.n. FAMILY HISTORY: Significant for mother had breast cancer. Father had colon cancer. Sister has breast cancer. SOCIAL HISTORY: lives alone. Denies any smoking history, but admits for passive smoking. No alcohol use. No drug use. REVIEW OF SYMPTOMS: As per HPI. Rest of review of systems negative. PHYSICAL EXAMINATION: GENERAL: The patient is obese, not in acute distress. VITAL SIGNS: Temperature 37.4, pulse 119, respiratory rate 20, blood pressure 147/94 and oxygen 93% on room air. HEENT: No pallor. No icterus. Pupils are equal, round and reactive to light. NECK: No JVD. No neck masses. No carotid bruit. CARDIOVASCULAR: S1, S2 heard. Tachycardia. No murmurs. RESPIRATORY SYSTEM: Normal AP diameter. No accessory muscle use. No wheezing. No crackles. ABDOMEN: Soft. Bowel sounds present. Nontender. No distention. Left CVA tenderness present. No guarding. No rigidity. CENTRAL NERVOUS SYSTEM: Cranial nerves II through XII grossly intact. Nonfocal. EXTREMITIES: No edema. No erythema. LABORATORY DATA: WBC 9.8, hemoglobin 11.8, hematocrit 37.2 and platelets 296. PT 10.7, INR 0.9, APTT 21.6. D-dimer 770. Sodium 139, potassium 3.9, chloride 107, bicarbonate 23, BUN 11, creatinine 1.3, serum glucose 181, lactate 1.5, calcium 9.2, total bilirubin 0.2, AST 54, ALT 81 and alkaline phosphatase 188. Troponin I less than 0.015. BNP 58. Urinalysis positive for leukocyte esterase and nitrite. Chest x-ray, no acute process. Venous Doppler, no deep venous thrombosis in lower extremities. Knee x-ray, no acute fracture or dislocation, right knee, tricompartmental osteoarthritis, most severe at left patellofemoral compartment . 5mm subchondral lucency with surrounding sclerosis at the medial femoral condyle. This favors an osteochondral defect. CT of abdomen and pelvis, bilateral nephrolithiasis, no ureteral stones, no hydronephrosis, mild urothelial thickening and fat stranding in the left renal pelvis. This could be chronic or due to pyelitis or pyelonephritis. Recommend correlation with urinalysis. Mild bladder wall thickening and adjacent fat stranding suggestive of cystitis. Moderate hiatal hernia, unchanged. A few small ventral hernias containing short segment small bowel. No evidence of bowel obstruction. Electrocardiogram, sinus tachycardia with rate of [address] changes seen. ASSESSMENT AND PLAN: This is a 63-year-old female who presents with possible early sepsis and pyelonephritis .Presents with tachycardia and chills and CAT scan showing left pyelonephritis and cystitis, history of multiple procedure for left kidney stones in the past, also a history of urinary incontinence currently not following with urology, received I.V. cefepime and one liter of fluids in the Emergency Room. We will continue with I.V. normal saline 125 mL per hour. Lactic acid 1.5. We will continue I.V. cefepime. Follow the blood cultures and urine cultures and closely monitor in tele floor. Mild elevation of D-dimer. Currently, the patient is saturating fine on room air and lower extremity Doppler is negative for deep venous thrombosis. The patient is allergic to intravenous pyelogram dye .Symptoms of shortness of breath improved , most likely from the sepsis. We will watch for any concerns. We may do CT of the chest with prior treatment with steroids or we will do VQ lung scan if needed . 2. History of chronic obstructive pulmonary disease and asthma, from passive smoking, currently not in exacerbation. Continue with present nebs around the clock and p.r.n. and continue home inhalers. Complaining of burning sensation of chest whenever she has neb treatments. We will monitor for now. Continue proton pump inhibitor for now. 3. History of depression and anxiety. Continue home medication of Effexor, Cymbalta and hydroxyzine p.r.n. 4. History of hypertension, controlled with Toprol-XL. 5. History of hyperlipidemia, continue statin. 6. Gastroesophageal reflux disease, continue proton pump inhibitor. 7 Chronic kidney disease stage III, currently creatinine 1.3, seems to be around baseline. We will follow the laboratories. 8. History of colon cancer, status post surgery, currently no active issues. 9. History of obstructive sleep apnea syndrome, on bilevel positive airway pressure at home which we will continue. 10. Deep venous thrombosis prophylaxis, heparin subcutaneously. 10. Disposition: Closely monitor on tele floor. Level 1 full code. MTDD
[2019-05-17] MEDS: SODIUM CHLORIDE 0.9% 1000ML 1,000 ML IV SCH ×4 (00:42→23:52)
[2019-05-17] MEDS: METOPROLOL SUCC 25MG EXT REL TAB PO SCH ×3 (01:25→20:22)
[2019-05-17] MEDS: HYDROmorphone INJ 0.5 MG/0.5 ML SYR IV PRN ×6 (01:26→23:50)
[2019-05-17] MEDS: ONDANSETRON INJ 2 MG/ML 2 ML VIAL IV PRN (01:26)
[2019-05-17] MEDS: IPRATROPIUM BROMIDE NEB SOLN 0.02% 2.5 ML VIAL INH SCH ×4 (01:52→19:24)
[2019-05-17] MEDS: LEVALBUTEROL 1.25MG/0.5ML NEB INH SCH ×4 (01:53→19:24)
[2019-05-17] MEDS ORDERED: XOPENEX/ATROVENT 1.25mg/0.5MG NEB COMBO NEB SCH (02:00)
[2019-05-17 05:33] LABS: Basophils # (auto) 0.02 K/uL (0-0.2); Basophils % (auto) 0.2 %; Hematocrit (blood only) 35.3 % (37-47); Hemoglobin 10.8 g/dL (12.0-16.0); Immature Granulocytes # (auto) 0.06 K/uL (0.00-0.02); Immature Granulocytes % (auto) 0.7 %; Lymphocytes # (auto) 0.61 K/uL (1.2-3.4); Lymphocytes % (auto) 6.9 %; Mean Corpuscular Hgb Conc 30.6 g/dL (32-36); Mean Corpuscular Volume 94.6 fL (80-100); Mean Platelet Volume 9.7 fL (7.4-10.4); Monocytes # (auto) 0.18 K/uL (0.11-0.59); Monocytes % (auto) 2.1 %; Neutrophils # (auto) 7.91 K/uL (1.4-6.5); Neutrophils % (auto) 90.1 %; Platelet Count 274 K/uL (130-400); RDW Coefficient of Variation 13.8 % (11.5-14.5); RDW Standard Deviation 47.5 fL (36.4-46.3); Red Blood Count 3.73 M/uL (4.2-5.4); White Blood Count 8.78 K/uL (4.8-10.8)
[2019-05-17] MEDS: HEPARIN SOD 5,000 UNIT/0.5 ML VIAL SQ SCH ×3 (05:49→21:09)
[2019-05-17 06:06] LABS: BUN Creatinine Ratio 12.1 (10-20); Calcium 8.8 mg/dl (8.5-10.1); Creatinine Clr Calc Pharmacy 47.6 ml/min; Est GFR (African American) 51.3; Est GFR (Non-African American) 44.3; Magnesium 2.2 mg/dl (1.8-2.4); Potassium 5.3 mmol/L (3.5-5.1)
[2019-05-17] MEDS: VENLAFAXINE HCL XR 150 MG CAPXR PO SCH (08:26)
[2019-05-17] MEDS: CHOLECALCIFEROL 1,000 UNITS TAB PO SCH (08:26)
[2019-05-17] MEDS: OXcarbazepine 150 MG TABLET PO SCH ×2 (08:26→20:22)
[2019-05-17] MEDS: GABAPENTIN 300 MG CAP PO SCH ×3 (08:26→20:22)
[2019-05-17] MEDS: PANTOprazole 40 MG TAB PO SCH ×2 (08:26→20:22)
[2019-05-17] MEDS: MAGNESIUM OXIDE 400 MG TAB PO SCH (08:27)
[2019-05-17] MEDS: DULOXETINE HCL 60 MG CAP PO SCH (08:27)
[2019-05-17] MEDS: BUDESONIDE 90 MCG INH INH SCH ×2 (08:28→20:25)
[2019-05-17] MEDS ORDERED: CEFEPIME 2,000 MG in SYRINGE 7.5 ML IV SCH (09:00)
--- NOTE | 2019-05-17 11:53 | Hospitalist Progress Note ---
Date of Service May 17, 2019 Assessment & Plan (1) Acute pyelonephritis: Admitted with left flank pain associated with chills and shortness of breath CT scan of the abdomen and pelvis showed acute pyelonephritis involving the left side Has been on intravenous cefepime and feeling better Urine culture is growing gram-negative bacilli-sensitivity pending Blood cultures-pending Clinically improved and has minimal left renal angle pain Present on Admission?: Yes (2) SOB (shortness of breath): Likely secondary to multiple comorbid conditions including COPD, asthma and sleep apnea No acute exacerbation Has been improving (3) Acute pain of right knee: History of nephrolithiasis and renal cyst Pain in the left renal angle secondary to pyelonephritis for now Clinically better this morning (4) Osteoarthritis: Complaint to have left knee pain History of fall recently Clinically no acute arthritis involving left knee and no effusion We will continue with simple analgesics and physical therapy (5) Renal calculi: History of renal calculi Other medical conditions including GERD, chronic kidney disease, depression and anxiety, hypertension and hyperlipidemia and History of colon cancer status post surgery remain stable DVT prophylaxis Subcu heparin CODE STATUS-full Subjective 05/17 Patient was seen in telemetry unit She is a 63-year-old obese female with multiple medical problems as mentioned in history and physical was admitted with acute pyelonephritis Still complains some pain in the left renal angle Denies any nausea and vomiting, any fever and/or chills Shortness of breath is improved Review of Systems Review of Systems: All systems reviewed and are unremarkable except as noted below Constitutional: + chills, + sweats, + malaise and + weakness Respiratory: + dyspnea (Noted to be at presentation but resolved now) Genitourinary: + flank pain (Left flank pain and left renal angle tenderness) Musculoskeletal: + swelling (And pain in the right knee joint. Clinically no effusion) Physical Exam Physical Exam: No apparent distress at rest Constitutional: well developed, well nourished, + ill appearing and + obese Eyes: PERRL, conjunctivae normal, anicteric sclerae ENMT: external ear and nose normal, oropharynx normal Neck: trachea midline, no thyromegaly Respiratory: normal respiratory effort Auscultation: lungs clear to auscultation bilaterally and + diminished lung sounds Cardiovascular: Rate/Rhythm: regular rate and regular rhythm Extremities: + edema (Trace to 1+ edema bilaterally) Gastrointestinal (Abdomen): Inspection/Auscultation: abdomen normal to inspection and normal bowel sounds Percussion/Palpation: abdomen soft Musculoskeletal: Swelling of the left knee joint. Mild to moderate pain on movement but clinically no effusion Neurologic: moves all extremities Results & Data Vital Signs (Past 12 Hours) Vital Signs Temp Pulse Pulse Resp BP BP Pulse Ox 05/17/19 10:49 36.5 C 85 18 106/55 L 93 05/17/19 07:17 68 14 96 05/17/19 07:08 36.4 C L 81 20 105/67 94 05/17/19 03:02 36.7 C 100 H 20 112/72 94 05/17/19 01:53 113 H 20 93 05/17/19 00:53 110 H 05/17/19 00:15 37.1 C 118 H 20 132/95 94 05/16/19 23:56 112 H 18 147/92 H 94 Laboratory Results Short CBC 05/16/19 05/17/19 Range/Units 19:51 05:19 WBC 9.82 8.78 (4.8-10.8) K/uL Hgb 11.8 L 10.8 L (12.0-16.0) g/dL Hct 37.2 35.3 L (37-47) % Plt Count 296 274 (130-400) K/uL BMP 05/16/19 05/17/19 19:51 05:19 Sodium 139 140 Potassium 3.9 5.3 H D Chloride 107 111 H Carbon Dioxide 23 26 BUN 11 15 Creatinine 1.37 H 1.27 H Glucose 181 H 235 H Calcium 9.2 8.8 Cardiac Enzymes 05/16/19 05/16/19 Range/Units 19:51 19:51 Troponin I Cancelled < 0.015 Liver Function 05/16/19 Range/Units 19:51 Total Bilirubin 0.2 (0.2-1) mg/dl AST 54 H (15-37) U/L ALT 81 H (12-78) U/L Alkaline Phosphatase 188 H (45-117) U/L Albumin 3.0 L (3.4-5.0) gm/dl Urine 05/16/19 Range/Units 21:45 Urine Color Dark Yellow Urine Appearance Turbid A (Clear) Urine pH 5.0 (4.5-7.5) Ur Specific [place] 1.023 (1.000-1.030) Urine Protein 2+ H (Negative) Urine Glucose (UA) Negative (Negative) Medications Administered Current Inpatient Medications Acetaminophen (Tylenol) 650 mg PO Q4H PRN PRN Reason: Pain or Fever Stop: 06/16/19 00:20 Albuterol (Ventolin 0.083% 2.5mg/3ml) 2.5 mg INH Q4H PRN PRN Reason: Shortness Of Breath Or Wheezing Stop: 06/16/19 00:20 Atorvastatin Calcium (Lipitor) 40 mg PO QPM [facility] Stop: 06/16/19 20:59 Budesonide (Pulmicort Flexhaler) 1 puffs INH BID [facility] Stop: 06/16/19 08:59 Last Admin: 05/17/19 08:28 Dose: 1 puffs Documented by: Clopidogrel Bisulfate (Plavix) 75 mg PO QPM [facility] Stop: 06/16/19 20:59 Duloxetine HCl (Cymbalta) 60 mg PO DAILY [facility] Stop: 06/16/19 08:59 Last Admin: 05/17/19 08:27 Dose: 60 mg Documented by: Gabapentin (Neurontin) 300 mg PO TID [facility] Stop: 06/16/19 08:59 Last Admin: 05/17/19 08:26 Dose: 300 mg Documented by: Heparin Sodium (Porcine) (Heparin Sodium (Porcine)) 5,000 units SQ Q8 [facility] Stop: 06/16/19 05:59 Last Admin: 05/17/19 05:49 Dose: 5,000 units Documented by: Hydromorphone HCl (Dilaudid) 0.5 mg IV Q3H PRN PRN Reason: Pain Stop: 05/31/19 00:20 Last Admin: 05/17/19 10:52 Dose: 0.5 mg Documented by: Hydroxyzine HCl (Vistaril) 25 mg PO BID PRN PRN Reason: Anxiety Stop: 06/16/19 00:20 Sodium Chloride (Nss 1000ml) 1,000 mls @ 125 mls/hr IV .Q8H [facility] Stop: 06/16/19 00:20 Last Admin: 05/17/19 08:25 Dose: 125 mls/hr Documented by: Cefepime HCl 1,000 mg/ Syringe 11.3 mls @ 5.5 mls/min IV Q24H [facility]; Protocol Stop: 05/26/19 17:59 Ipratropium [place] (Atrovent 0.02% 0.5mg/2.5ml) 0.5 mg INH Q6R [facility] Stop: 06/16/19 01:59 Last Admin: 05/17/19 07:17 Dose: 0.5 mg Documented by: Levalbuterol HCl (Xopenex 1.25mg/0.5ml Neb) 1.25 mg INH Q6R [facility] Stop: 06/16/19 01:59 Last Admin: 05/17/19 07:17 Dose: 1.25 mg Documented by: Magnesium Oxide (Mag-Ox) 400 mg PO QAM [facility] Stop: 06/16/19 08:59 Last Admin: 05/17/19 08:27 Dose: 400 mg Documented by: Metoprolol Succinate (Toprol Xl) 37.5 mg PO BID [facility] Stop: 06/16/19 00:20 Last Admin: 05/17/19 08:28 Dose: 37.5 mg Documented by: Miscellaneous (Order Awaiting Action) 1 ea N/A QS [facility] Stop: 06/16/19 07:59 Last Admin: 05/17/19 10:36 Dose: Not Given Documented by: Miscellaneous Information (Cefepime Consult Active) 1 ea N/A UD PRN PRN Reason: Consult Stop: 06/16/19 00:25 Nitroglycerin (Nitrostat) 0.4 mg SL UD PRN PRN Reason: Chest Pain Stop: 06/16/19 00:20 Ondansetron HCl (Zofran) 4 mg IV Q6H PRN PRN Reason: Nausea Stop: 06/16/19 00:20 Last Admin: 05/17/19 01:26 Dose: 4 mg Documented by: Oxcarbazepine (Trileptal) 300 mg PO BID [facility] Stop: 06/16/19 08:59 Last Admin: 05/17/19 08:26 Dose: 300 mg Documented by: Pantoprazole Sodium (Protonix) 40 mg PO BID [facility] Stop: 06/16/19 08:59 Last Admin: 05/17/19 08:26 Dose: 40 mg Documented by: Polyethylene Glycol (Miralax Powder Packet) 17 gm PO DAILY PRN PRN Reason: Constipation Stop: 06/16/19 00:20 Venlafaxine HCl (Effexor Extended Release) 150 mg PO DAILY [facility] Stop: 06/16/19 08:59 Last Admin: 05/17/19 08:26 Dose: 150 mg Documented by: Vitamin D (Vitamin D3) 2,000 units PO DAILY [facility] Stop: 06/16/19 08:59 Last Admin: 05/17/19 08:26 Dose: 2,000 units Documented by:
[2019-05-17] MEDS ORDERED: CEFEPIME 1,000 MG in SYRINGE 0 ML IV SCH (18:00)
[2019-05-17] MEDS: CLOPIDOGREL BISULFATE 75 MG TAB PO SCH (20:22)
[2019-05-17] MEDS: ATORVASTATIN 40 MG TAB PO SCH (20:22)
[2019-05-17] MEDS ORDERED: ACETAMINOPHEN 65 ML IV PRN (20:45)
[2019-05-17] MEDS ORDERED: NON-FORMULARY MEDICATION (Riboflavin (Vitamin B2) 400 MG) PO SCH (21:00)
[2019-05-18] MEDS: LEVALBUTEROL 1.25MG/0.5ML NEB INH SCH ×4 (02:08→19:48)
[2019-05-18] MEDS: IPRATROPIUM BROMIDE NEB SOLN 0.02% 2.5 ML VIAL INH SCH ×4 (02:09→19:48)
[2019-05-18] MEDS: HYDROmorphone INJ 0.5 MG/0.5 ML SYR IV PRN ×2 (06:02→12:00)
[2019-05-18] MEDS: HEPARIN SOD 5,000 UNIT/0.5 ML VIAL SQ SCH ×3 (06:13→21:07)
[2019-05-18] MEDS: ONDANSETRON INJ 2 MG/ML 2 ML VIAL IV PRN (06:16)
[2019-05-18 06:33] LABS: Basophils # (auto) 0.03 K/uL (0-0.2); Basophils % (auto) 0.3 %; Eosinophils # (auto) 0.19 K/uL (0-0.5); Eosinophils % (auto) 2.1 %; Hematocrit (blood only) 32.7 % (37-47); Hemoglobin 9.6 g/dL (12.0-16.0); Immature Granulocytes # (auto) 0.12 K/uL (0.00-0.02); Immature Granulocytes % (auto) 1.3 %; Lymphocytes # (auto) 1.27 K/uL (1.2-3.4); Lymphocytes % (auto) 14.2 %; Mean Corpuscular Hgb Conc 29.4 g/dL (32-36); Mean Corpuscular Volume 97.6 fL (80-100); Mean Platelet Volume 9.5 fL (7.4-10.4); Monocytes # (auto) 0.86 K/uL (0.11-0.59); Monocytes % (auto) 9.6 %; Neutrophils # (auto) 6.45 K/uL (1.4-6.5); Neutrophils % (auto) 72.5 %; Platelet Count 255 K/uL (130-400); RDW Coefficient of Variation 14.5 % (11.5-14.5); RDW Standard Deviation 51.8 fL (36.4-46.3); Red Blood Count 3.35 M/uL (4.2-5.4); White Blood Count 8.92 K/uL (4.8-10.8)
[2019-05-18 07:13] LABS: BUN Creatinine Ratio 14.1 (10-20); Calcium 8.4 mg/dl (8.5-10.1); Creatinine Clr Calc Pharmacy 39.3 ml/min; Est GFR (African American) 40.9; Est GFR (Non-African American) 35.3; Potassium 4.5 mmol/L (3.5-5.1)
[2019-05-18] MEDS: SODIUM CHLORIDE 0.9% 1000ML 1,000 ML IV SCH ×2 (09:03→16:17)
[2019-05-18] MEDS: OXcarbazepine 150 MG TABLET PO SCH ×2 (10:08→20:52)
[2019-05-18] MEDS: VITAMIN B COMPLEX TAB PO SCH (10:08)
[2019-05-18] MEDS: CHOLECALCIFEROL 1,000 UNITS TAB PO SCH (10:08)
[2019-05-18] MEDS: GABAPENTIN 300 MG CAP PO SCH ×3 (10:08→20:53)
[2019-05-18] MEDS: MAGNESIUM OXIDE 400 MG TAB PO SCH (10:08)
[2019-05-18] MEDS: METOPROLOL SUCC 25MG EXT REL TAB PO SCH ×2 (10:09→20:53)
[2019-05-18] MEDS: VENLAFAXINE HCL XR 150 MG CAPXR PO SCH (10:10)
[2019-05-18] MEDS: BUDESONIDE 90 MCG INH INH SCH ×2 (10:10→20:54)
[2019-05-18] MEDS: PANTOprazole 40 MG TAB PO SCH ×2 (10:10→20:52)
[2019-05-18] MEDS: DULOXETINE HCL 60 MG CAP PO SCH (10:10)
[2019-05-18] MEDS: ONDANSETRON INJ 2 MG/ML 2 ML VIAL IV SCH ×3 (10:38→22:32)
--- NOTE | 2019-05-18 13:34 | Hospitalist Progress Note ---
Date of Service May 18, 2019 Assessment & Plan (1) Acute pyelonephritis: Admitted with left flank pain associated with chills and shortness of breath CT scan of the abdomen and pelvis showed acute pyelonephritis involving the left side Has been on intravenous cefepime and feeling better Urine culture is growing gram-negative bacilli-sensitivity pending Blood cultures-negative Clinically improved and has minimal left renal angle pain-continues to have pain as of today 05/18 No fever and and or chills PERRI Likely secondary to dehydration and pyelonephritis Kidney function is slightly worse today with creatinine 1.53 We will continue intravenous fluid and advised more fluid intake orally Monitor PRP tomorrow (2) SOB (shortness of breath): Likely secondary to multiple comorbid conditions including COPD, asthma and sleep apnea No acute exacerbation Has been improving Denies any shortness of breath at rest (3) Acute pain of right knee: History of nephrolithiasis and renal cyst Pain in the left renal angle secondary to pyelonephritis for now Clinically better this morning (4) Osteoarthritis: Complaint to have left knee pain History of fall recently Clinically no acute arthritis involving left knee and no effusion We will continue with simple analgesics and physical therapy (5) Renal calculi: History of renal calculi Other medical conditions including GERD, chronic kidney disease, depression and anxiety, hypertension and hyperlipidemia and History of colon cancer status post surgery remain stable DVT prophylaxis Subcu heparin CODE STATUS-full Subjective 05/17 Patient was seen in telemetry unit She is a 63-year-old obese female with multiple medical problems as mentioned in history and physical was admitted with acute pyelonephritis Still complains some pain in the left renal angle Denies any nausea and vomiting, any fever and/or chills Shortness of breath is improved 05/18 The patient was seen and examined in telemetry unit She complains to have shakes all over the body which has been noted before She denies any acute shortness of breath Her pain has been controlled Review of Systems Review of Systems: All systems reviewed and are unremarkable except as noted below Constitutional: + chills, + sweats, + malaise and + weakness Gastrointestinal: Left renal angle pain Genitourinary: + flank pain (Left flank pain and left renal angle tenderness) Musculoskeletal: + swelling (And pain in the right knee joint. Clinically no effusion) Physical Exam Physical Exam: Lying in bed with occasional tremors of the extremities. No apparent distress otherwise Constitutional: well developed, well nourished, + ill appearing and + obese Eyes: PERRL, conjunctivae normal, anicteric sclerae ENMT: external ear and nose normal, oropharynx normal Neck: trachea midline, no thyromegaly Respiratory: normal respiratory effort Auscultation: lungs clear to auscultation bilaterally and + diminished lung sounds Cardiovascular: Rate/Rhythm: regular rate and regular rhythm Extremities: + edema (Trace to 1+ edema bilaterally) Gastrointestinal (Abdomen): Inspection/Auscultation: abdomen normal to inspection and normal bowel sounds Percussion/Palpation: abdomen soft Neurologic: moves all extremities Lymphatic: no cervical or axillary lymphadenopathy Results & Data Vital Signs (Past 12 Hours) Vital Signs Temp Pulse Pulse Resp BP Pulse Ox 05/18/19 12:06 37.2 C 92 H 22 110/74 90 05/18/19 10:45 90 93 05/18/19 07:18 80 16 97 05/18/19 07:03 37.3 C 86 18 128/77 95 05/18/19 03:56 36.8 C 77 18 120/80 99 05/18/19 02:09 83 16 95 Laboratory Results Short CBC 05/18/19 Range/Units 06:17 WBC 8.92 (4.8-10.8) K/uL Hgb 9.6 L (12.0-16.0) g/dL Hct 32.7 L (37-47) % Plt Count 255 (130-400) K/uL BMP 05/18/19 06:17 Sodium 142 Potassium 4.5 D Chloride 113 H Carbon Dioxide 26 BUN 22 H Creatinine 1.53 H Glucose 165 H Calcium 8.4 L Medications Administered Current Inpatient Medications Albuterol (Ventolin 0.083% 2.5mg/3ml) 2.5 mg INH Q4H PRN PRN Reason: Shortness Of Breath Or Wheezing Stop: 06/16/19 00:20 Atorvastatin Calcium (Lipitor) 40 mg PO QPM [facility] [place] Stop: 06/16/19 20:59 Last Admin: 05/17/19 20:22 Dose: 40 mg Documented by: Budesonide (Pulmicort Flexhaler) 1 puffs INH BID [facility] Stop: 06/16/19 08:59 Last Admin: 05/18/19 10:10 Dose: 1 puffs Documented by: Clopidogrel Bisulfate (Plavix) 75 mg PO QPM [facility] Stop: 06/16/19 20:59 Last Admin: 05/17/19 20:22 Dose: 75 mg Documented by: Duloxetine HCl (Cymbalta) 60 mg PO DAILY [facility] Stop: 06/16/19 08:59 Last Admin: 05/18/19 10:10 Dose: 60 mg Documented by: Gabapentin (Neurontin) 300 mg PO TID [facility] Stop: 06/16/19 08:59 Last Admin: 05/18/19 10:08 Dose: 300 mg Documented by: Heparin Sodium (Porcine) (Heparin Sodium (Porcine)) 5,000 units SQ Q8 [facility] Stop: 06/16/19 05:59 Last Admin: 05/18/19 06:13 Dose: 5,000 units Documented by: Hydromorphone HCl (Dilaudid) 0.5 mg IV Q3H PRN PRN Reason: Pain Stop: 05/31/19 00:20 Last Admin: 05/18/19 12:00 Dose: 0.5 mg Documented by: Hydroxyzine HCl (Vistaril) 25 mg PO BID PRN PRN Reason: Anxiety Stop: 06/16/19 00:20 Sodium Chloride (Nss 1000ml) 1,000 mls @ 125 mls/hr IV .Q8H [facility] Stop: 06/16/19 00:20 Last Admin: 05/18/19 09:03 Dose: 125 mls/hr Documented by: Acetaminophen (Ofirmev) 65 mls @ 200 mls/hr IV Q6H PRN; Protocol PRN Reason: Pain or Fever Stop: 06/16/19 20:44 Last Infusion: 05/17/19 21:27 Dose: Infused Documented by: Ceftriaxone Sodium 2,000 mg/ (Dextrose) 70 mls @ 140 mls/hr IV Q24H [facility] Stop: 05/27/19 17:59 Ipratropium [place] (Atrovent 0.02% 0.5mg/2.5ml) 0.5 mg INH Q6R [facility] Stop: 06/16/19 01:59 Last Admin: 05/18/19 07:15 Dose: 0.5 mg Documented by: Levalbuterol HCl (Xopenex 1.25mg/0.5ml Neb) 1.25 mg INH Q6R [facility] Stop: 06/16/19 01:59 Last Admin: 08/09/19 07:15 Dose: 1.25 mg Documented by: Magnesium Oxide (Mag-Ox) 400 mg PO QAM [facility] [place] Stop: 06/16/19 08:59 Last Admin: 05/18/19 10:08 Dose: 400 mg Documented by: Metoprolol Succinate (Toprol Xl) 37.5 mg PO BID [facility] Stop: 06/16/19 00:20 Last Admin: 05/18/19 10:09 Dose: 37.5 mg Documented by: Nitroglycerin (Nitrostat) 0.4 mg SL UD PRN PRN Reason: Chest Pain Stop: 06/16/19 00:20 Ondansetron HCl (Zofran) 4 mg IV Q6H PRN PRN Reason: Nausea Stop: 06/16/19 00:20 Last Admin: 05/18/19 06:16 Dose: 4 mg Documented by: Ondansetron HCl (Zofran) 4 mg IV Q6H [facility] [place] Stop: 06/17/19 09:29 Last Admin: 05/18/19 10:38 Dose: 4 mg Documented by: Oxcarbazepine (Trileptal) 300 mg PO BID [facility] [place] Stop: 06/16/19 08:59 Last Admin: 05/18/19 10:08 Dose: 300 mg Documented by: Pantoprazole Sodium (Protonix) 40 mg PO BID [facility] [place] Stop: 06/16/19 08:59 Last Admin: 05/18/19 10:10 Dose: 40 mg Documented by: Polyethylene Glycol (Miralax Powder Packet) 17 gm PO DAILY PRN PRN Reason: Constipation Stop: 06/16/19 00:20 Venlafaxine HCl (Effexor Extended Release) 150 mg PO DAILY [facility] [place] Stop: 06/16/19 08:59 Last Admin: 05/18/19 10:10 Dose: 150 mg Documented by: Vitamin B Complex (Vitamin B Complex) 1 tab PO DAILY [facility] [place] Stop: 06/17/19 08:59 Last Admin: 05/18/19 10:08 Dose: 1 tab Documented by: Vitamin D (Vitamin D3) 2,000 units PO DAILY [facility] [place] Stop: 06/16/19 08:59 Last Admin: 05/18/19 10:08 Dose: 2,000 units Documented by:
[2019-05-18] MEDS: cefTRIAXone SODIUM 2,000 MG in DEXTROSE 5% 50 ML IV SCH (18:29)
[2019-05-18] MEDS: CLOPIDOGREL BISULFATE 75 MG TAB PO SCH (20:52)
[2019-05-18] MEDS: ATORVASTATIN 40 MG TAB PO SCH (20:52)
[2019-05-18] MEDS: ACETAMINOPHEN 1,000 MG/100 ML VIAL IV PRN (21:05)
[2019-05-19] MEDS: SODIUM CHLORIDE 0.9% 1000ML 1,000 ML IV SCH ×3 (01:02→15:33)
[2019-05-19] MEDS: LEVALBUTEROL 1.25MG/0.5ML NEB INH SCH ×4 (01:38→19:06)
[2019-05-19] MEDS: IPRATROPIUM BROMIDE NEB SOLN 0.02% 2.5 ML VIAL INH SCH ×4 (01:38→19:05)
[2019-05-19] MEDS: ONDANSETRON INJ 2 MG/ML 2 ML VIAL IV SCH ×4 (03:43→21:42)
[2019-05-19] MEDS: HEPARIN SOD 5,000 UNIT/0.5 ML VIAL SQ SCH ×3 (05:57→21:42)
[2019-05-19 07:02] LABS: BUN Creatinine Ratio 11.8 (10-20); Calcium 8.8 mg/dl (8.5-10.1); Creatinine Clr Calc Pharmacy 53.6 ml/min; Est GFR (African American) 63.1; Est GFR (Non-African American) 54.4; Potassium 4.5 mmol/L (3.5-5.1)
[2019-05-19] MEDS: CHOLECALCIFEROL 1,000 UNITS TAB PO SCH (08:23)
[2019-05-19] MEDS: DULOXETINE HCL 60 MG CAP PO SCH (08:23)
[2019-05-19] MEDS: OXcarbazepine 150 MG TABLET PO SCH ×2 (08:23→19:43)
[2019-05-19] MEDS: VITAMIN B COMPLEX TAB PO SCH (08:23)
[2019-05-19] MEDS: GABAPENTIN 300 MG CAP PO SCH ×3 (08:23→19:44)
[2019-05-19] MEDS: PANTOprazole 40 MG TAB PO SCH ×2 (08:24→19:45)
[2019-05-19] MEDS: METOPROLOL SUCC 25MG EXT REL TAB PO SCH ×2 (08:24→19:44)
[2019-05-19] MEDS: MAGNESIUM OXIDE 400 MG TAB PO SCH (08:24)
[2019-05-19] MEDS: VENLAFAXINE HCL XR 150 MG CAPXR PO SCH (08:24)
[2019-05-19] MEDS: BUDESONIDE 90 MCG INH INH SCH ×2 (08:24→19:43)
--- NOTE | 2019-05-19 15:37 | Hospitalist Progress Note ---
Date of Service May 19, 2019 Assessment & Plan (1) Acute pyelonephritis: Admitted with left flank pain associated with chills and shortness of breath CT scan of the abdomen and pelvis showed acute pyelonephritis involving the left side Has been on intravenous cefepime and feeling better Urine culture is growing gram-negative bacilli-E. coli and is pansensitive Blood cultures-negative Clinically improved and has minimal left renal angle pain-continues to have pain as of today 05/18 No fever and and or chills Clinically improved biochemically improved to Has been very lethargic Antibiotic was changed to intravenous ceftriaxone Will start PT and OT evaluation PERRI Likely secondary to dehydration and pyelonephritis Kidney function is slightly worse today with creatinine 1.53 We will continue intravenous fluid and advised more fluid intake orally Monitor PRP tomorrow (2) SOB (shortness of breath): Likely secondary to multiple comorbid conditions including COPD, asthma and sleep apnea No acute exacerbation Has been improving Denies any shortness of breath at rest Remains free of symptoms with normal saturation at room air (3) Acute pain of right knee: History of nephrolithiasis and renal cyst Pain in the left renal angle secondary to pyelonephritis for now Clinically better this morning Pain is a lot better and will avoid any narcotics (4) Osteoarthritis: Complaint to have left knee pain History of fall recently Clinically no acute arthritis involving left knee and no effusion We will continue with simple analgesics and physical therapy (5) Renal calculi: History of renal calculi Other medical conditions including GERD, chronic kidney disease, depression and anxiety, hypertension and hyperli pidemia and History of colon cancer status post surgery remain stable DVT prophylaxis Subcu heparin CODE STATUS-full Continue PT and OT Subjective 05/17 Patient was seen in telemetry unit She is a 63-year-old obese female with multiple medical problems as mentioned in history and physical was admitted with acute pyelonephritis Still complains some pain in the left renal angle Denies any nausea and vomiting, any fever and/or chills Shortness of breath is improved 05/18 The patient was seen and examined in telemetry unit She complains to have shakes all over the body which has been noted before She denies any acute shortness of breath Her pain has been controlled 05/19 The patient was seen and examined in telemetry unit She remains drowsy and complains some back pain Shaking of the extremities are resolved Denies any significant symptoms otherwise Review of Systems Review of Systems: All systems reviewed and are unremarkable except as noted below Constitutional: + chills, + sweats, + malaise and + weakness Respiratory: + dyspnea (Noted to be at presentation but resolved now) Gastrointestinal: Left renal angle pain Genitourinary: + flank pain (Left flank pain and left renal angle tenderness) Musculoskeletal: + swelling (And pain in the right knee joint. Clinically no effusion) Physical Exam Physical Exam: Lying in bed comfortably, looks ill and lethargic Constitutional: well developed, well nourished, + ill appearing and + obese Eyes: PERRL, conjunctivae normal, anicteric sclerae ENMT: external ear and nose normal, oropharynx normal Neck: trachea midline, no thyromegaly Respiratory: normal respiratory effort Auscultation: lungs clear to auscultation bilaterally and + diminished lung sounds Cardiovascular: Rate/Rhythm: regular rate and regular rhythm Extremities: + edema (Trace to 1+ edema bilaterally) Gastrointestinal (Abdomen): Inspection/Auscultation: abdomen normal to inspection and normal bowel sounds Percussion/Palpation: abdomen soft Neurologic: moves all extremities Generally very weak and lethargic but otherwise alert and awake and oriented Lymphatic: no cervical or axillary lymphadenopathy Results & Data Vital Signs (Past 12 Hours) Vital Signs Temp Pulse Resp BP Pulse Ox 05/19/19 14:50 37.3 C 84 20 117/81 91 05/19/19 14:12 79 20 98 05/19/19 11:26 36.5 C 76 20 135/85 99 05/19/19 07:49 36.9 C 78 20 130/85 97 05/19/19 07:15 98 H 20 99 Laboratory Results [facility] 05/19/19 05:59 Sodium 144 Potassium 4.5 Chloride 113 H Carbon Dioxide 28 BUN 13 Creatinine 1.07 Glucose 123 H Calcium 8.8 Medications Administered Current Inpatient Medications Albuterol (Ventolin 0.083% 2.5mg/3ml) 2.5 mg INH Q4H PRN PRN Reason: Shortness Of Breath Or Wheezing Stop: 06/16/19 00:20 Atorvastatin Calcium (Lipitor) 40 mg PO QPM [facility] Stop: 06/16/19 20:59 Last Admin: 05/18/19 20:52 Dose: 40 mg Documented by: Budesonide (Pulmicort Flexhaler) 1 puffs INH BID [facility] Stop: 06/16/19 08:59 Last Admin: 05/19/19 08:24 Dose: 1 puffs Documented by: Clopidogrel Bisulfate (Plavix) 75 mg PO QPM [facility] Stop: 06/16/19 20:59 Last Admin: 05/18/19 20:52 Dose: 75 mg Documented by: Duloxetine HCl (Cymbalta) 60 mg PO DAILY [facility] Stop: 06/16/19 08:59 Last Admin: 05/19/19 08:23 Dose: 60 mg Documented by: Gabapentin (Neurontin) 300 mg PO TID [facility] Stop: 06/16/19 08:59 Last Admin: 05/19/19 13:41 Dose: 300 mg Documented by: Heparin Sodium (Porcine) (Heparin Sodium (Porcine)) 5,000 units SQ Q8 [facility] Stop: 06/16/19 05:59 Last Admin: 05/19/19 13:41 Dose: 5,000 units Documented by: Hydroxyzine HCl (Vistaril) 25 mg PO BID PRN PRN Reason: Anxiety Stop: 06/16/19 00:20 Sodium Chloride (Nss 1000ml) 1,000 mls @ 125 mls/hr IV .Q8H [facility] Stop: 06/16/19 00:20 Last Admin: 05/19/19 15:33 Dose: 125 mls/hr Documented by: Ceftriaxone Sodium 2,000 mg/ (Dextrose) 70 mls @ 140 mls/hr IV Q24H [facility] Stop: 05/27/19 17:59 Last Infusion: 05/18/19 19:05 Dose: Infused Documented by: Acetaminophen (Ofirmev) 1,000 mg in 100 mls @ 400 mls/hr IV Q8H PRN PRN Reason: Pain Stop: 06/17/19 19:10 Last Infusion: 05/18/19 21:21 Dose: Infused Documented by: Ipratropium [place] (Atrovent 0.02% 0.5mg/2.5ml) 0.5 mg INH Q6R [facility] Stop: 06/16/19 01:59 Last Admin: 05/19/19 14:11 Dose: 0.5 mg Documented by: Levalbuterol HCl (Xopenex 1.25mg/0.5ml Neb) 1.25 mg INH Q6R [facility] Stop: 06/16/19 01:59 Last Admin: 05/19/19 14:11 Dose: 1.25 mg Documented by: Magnesium Oxide (Mag-Ox) 400 mg PO QAM [facility] Stop: 06/16/19 08:59 Last Admin: 05/19/19 08:24 Dose: 400 mg Documented by: Metoprolol Succinate (Toprol Xl) 37.5 mg PO BID [facility] Stop: 06/16/19 00:20 Last Admin: 05/19/19 08:24 Dose: 37.5 mg Documented by: Nitroglycerin (Nitrostat) 0.4 mg SL UD PRN PRN Reason: Chest Pain Stop: 06/16/19 00:20 Ondansetron HCl (Zofran) 4 mg IV Q6H PRN PRN Reason: Nausea Stop: 06/16/19 00:20 Last Admin: 05/18/19 06:16 Dose: 4 mg Documented by: Ondansetron HCl (Zofran) 4 mg IV Q6H [facility] Stop: 06/17/19 09:29 Last Admin: 05/19/19 15:33 Dose: 4 mg Documented by: Oxcarbazepine (Trileptal) 300 mg PO BID [facility] Stop: 06/16/19 08:59 Last Admin: 05/19/19 08:23 Dose: 300 mg Documented by: Pantoprazole Sodium (Protonix) 40 mg PO BID [facility] Stop: 06/16/19 08:59 Last Admin: 05/19/19 08:24 Dose: 40 mg Documented by: Polyethylene Glycol (Miralax Powder Packet) 17 gm PO DAILY PRN PRN Reason: Constipation Stop: 06/16/19 00:20 Venlafaxine HCl (Effexor Extended Release) 150 mg PO DAILY [facility] Stop: 06/16/19 08:59 Last Admin: 05/19/19 08:24 Dose: 150 mg Documented by: Vitamin B Complex (Vitamin B Complex) 1 tab PO DAILY [facility] Stop: 06/17/19 08:59 Last Admin: 05/19/19 08:23 Dose: 1 tab Documented by: Vitamin D (Vitamin D3) 2,000 units PO DAILY [facility] Stop: 06/16/19 08:59 Last Admin: 05/19/19 08:23 Dose: 2,000 units Documented by:
[2019-05-19] MEDS: cefTRIAXone SODIUM 2,000 MG in DEXTROSE 5% 50 ML IV SCH (16:54)
[2019-05-19] MEDS: ACETAMINOPHEN 1,000 MG/100 ML VIAL IV PRN (18:21)
[2019-05-19] MEDS: CLOPIDOGREL BISULFATE 75 MG TAB PO SCH (19:44)
[2019-05-19] MEDS: ATORVASTATIN 40 MG TAB PO SCH (19:44)
[2019-05-20] MEDS: SODIUM CHLORIDE 0.9% 1000ML 1,000 ML IV SCH ×2 (00:05→08:38)
[2019-05-20] MEDS: IPRATROPIUM BROMIDE NEB SOLN 0.02% 2.5 ML VIAL INH SCH ×2 (01:45→07:05)
[2019-05-20] MEDS: LEVALBUTEROL 1.25MG/0.5ML NEB INH SCH ×2 (01:46→07:05)
[2019-05-20] MEDS: ONDANSETRON INJ 2 MG/ML 2 ML VIAL IV SCH ×4 (04:06→21:26)
[2019-05-20] MEDS: ACETAMINOPHEN 1,000 MG/100 ML VIAL IV PRN ×3 (04:07→19:34)
[2019-05-20 05:37] LABS: Hematocrit (blood only) 29.2 % (37-47); Hemoglobin 8.8 g/dL (12.0-16.0); Mean Corpuscular Hgb Conc 30.1 g/dL (32-36); Mean Corpuscular Volume 95.1 fL (80-100); Mean Platelet Volume 9.5 fL (7.4-10.4); Platelet Count 185 K/uL (130-400); RDW Coefficient of Variation 13.9 % (11.5-14.5); RDW Standard Deviation 47.8 fL (36.4-46.3); Red Blood Count 3.07 M/uL (4.2-5.4); White Blood Count 8.71 K/uL (4.8-10.8)
[2019-05-20 05:54] LABS: Creatinine Clr Calc Pharmacy 67.4 ml/min; Est GFR (African American) 83.3; Est GFR (Non-African American) 71.9
[2019-05-20] MEDS: HEPARIN SOD 5,000 UNIT/0.5 ML VIAL SQ SCH ×3 (05:56→21:26)
[2019-05-20] MEDS: BUDESONIDE 90 MCG INH INH SCH ×2 (08:30→19:34)
[2019-05-20] MEDS: METOPROLOL SUCC 25MG EXT REL TAB PO SCH ×2 (08:30→19:36)
[2019-05-20] MEDS: GABAPENTIN 300 MG CAP PO SCH ×3 (08:31→19:35)
[2019-05-20] MEDS: MAGNESIUM OXIDE 400 MG TAB PO SCH (08:31)
[2019-05-20] MEDS: OXcarbazepine 150 MG TABLET PO SCH ×2 (08:31→19:34)
[2019-05-20] MEDS: VITAMIN B COMPLEX TAB PO SCH (08:31)
[2019-05-20] MEDS: VENLAFAXINE HCL XR 150 MG CAPXR PO SCH (08:31)
[2019-05-20] MEDS: CHOLECALCIFEROL 1,000 UNITS TAB PO SCH (08:31)
[2019-05-20] MEDS: DULOXETINE HCL 60 MG CAP PO SCH (08:31)
[2019-05-20] MEDS: PANTOprazole 40 MG TAB PO SCH ×2 (08:32→19:36)
--- NOTE | 2019-05-20 12:46 | Hospitalist Progress Note ---
Date of Service May 20, 2019 Assessment & Plan (1) Acute pyelonephritis: Admitted with left flank pain associated with chills and shortness of breath CT scan of the abdomen and pelvis showed acute pyelonephritis involving the left side Has been on intravenous cefepime and feeling better Urine culture is growing gram-negative bacilli-E. coli and is pansensitive Blood cultures-negative Clinically improved and has minimal left renal angle pain-continues to have pain as of today 05/18 No fever and and or chills Clinically improved biochemically improved to Has been very lethargic Antibiotic was changed to intravenous ceftriaxone Will start PT and OT evaluation Looks much better today with less lethargy-advised to have more physical therapy Left renal angle pain is improved PERRI Likely secondary to dehydration and pyelonephritis Kidney function is slightly worse today with creatinine 1.53 We will continue intravenous fluid and advised more fluid intake orally Monitor PRP tomorrow (2) SOB (shortness of breath): Likely secondary to multiple comorbid conditions including COPD, asthma and sleep apnea No acute exacerbation Has been improving Denies any shortness of breath at rest Remains free of symptoms with normal saturation at room air (3) Acute pain of right knee: History of nephrolithiasis and renal cyst Pain in the left renal angle secondary to pyelonephritis for now Clinically better this morning Pain is a lot better and will avoid any narcotics (4) Osteoarthritis: Complaint to have left knee pain History of fall recently Clinically no acute arthritis involving left knee and no effusion We will continue with simple analgesics and physical therapy (5) Renal calculi: History of renal calculi Other medical conditions including GERD, chronic kidney disease, depression and anxiety, hypertension and hyperlipidemia and History of colon cancer status post surgery remain stable DVT prophylaxis Subcu heparin CODE STATUS-full Continue PT and OT Advised to participate morning physical therapy Clinically much better Likely be discharged on Tuesday afternoon Subjective 05/17 Patient was seen in telemetry unit She is a 63-year-old obese female with multiple medical problems as mentioned in history and physical was admitted with acute pyelonephritis Still complains some pain in the left renal angle Denies any nausea and vomiting, any fever and/or chills Shortness of breath is improved 05/18 The patient was seen and examined in telemetry unit She complains to have shakes all over the body which has been noted before She denies any acute shortness of breath Her pain has been controlled 05/19 The patient was seen and examined in telemetry unit She remains drowsy and complains some back pain Shaking of the extremities are resolved Denies any significant symptoms otherwise 05/20 The patient was seen and examined in telemetry unit She remains weak and lethargic and complains nonspecific headache Her flank pain is much improved Denies any other significant symptoms Review of Systems Review of Systems: All systems reviewed and are unremarkable except as noted below Constitutional: + weakness Respiratory: + dyspnea (Noted to be at presentation but resolved now) Gastrointestinal: Left flank pain is minimal Genitourinary: + flank pain (Left flank pain and left renal angle tenderness) Musculoskeletal: + swelling (And pain in the right knee joint. Clinically no effusion) Physical Exam Physical Exam: No apparent distress at rest. Lying in bed comfortably Constitutional: well developed, well nourished and + obese Eyes: PERRL, conjunctivae normal, anicteric sclerae ENMT: external ear and nose normal, oropharynx normal Neck: trachea midline, no thyromegaly Respiratory: normal respiratory effort Auscultation: lungs clear to auscultation bilaterally and + diminished lung sounds Cardiovascular: Rate/Rhythm: regular rate and regular rhythm Extremities: + edema (Trace to 1+ edema bilaterally) Gastrointestinal (Abdomen): Inspection/Auscultation: abdomen normal to inspection and normal bowel sounds Percussion/Palpation: abdomen soft Musculoskeletal: No acute arthritis in any of the joints Neurologic: moves all extremities Generally weak and lethargic but no focal neuro deficit Lymphatic: no cervical or axillary lymphadenopathy Results & Data Vital Signs (Past 12 Hours) Vital Signs Temp Pulse Resp BP BP Pulse Ox 05/20/19 11:09 36.7 C 78 20 111/70 97 05/20/19 07:29 36.5 C 84 20 124/78 96 05/20/19 07:06 85 18 98 05/20/19 04:41 36.8 C 82 19 125/73 92 05/20/19 01:46 81 18 98 Laboratory Results Short CBC 05/20/19 Range/Units 05:17 WBC 8.71 (4.8-10.8) K/uL Hgb 8.8 L (12.0-16.0) g/dL Hct 29.2 L (37-47) % Plt Count 185 (130-400) K/uL BMP 05/20/19 05:17 Creatinine 0.85 Medications Administered Current Inpatient Medications Albuterol (Ventolin 0.083% 2.5mg/3ml) 2.5 mg INH Q4H PRN PRN Reason: Shortness Of Breath Or Wheezing Stop: 06/16/19 00:20 Atorvastatin Calcium (Lipitor) 40 mg PO QPM [facility] Stop: 06/16/19 20:59 Last Admin: 05/19/19 19:44 Dose: 40 mg Documented by: Budesonide (Pulmicort Flexhaler) 1 puffs INH BID [facility] Stop: 06/16/19 08:59 Last Admin: 05/20/19 08:30 Dose: 1 puffs Documented by: Clopidogrel Bisulfate (Plavix) 75 mg PO QPM [facility] Stop: 06/16/19 20:59 Last Admin: 05/19/19 19:44 Dose: 75 mg Documented by: Duloxetine HCl (Cymbalta) 60 mg PO DAILY [facility] Stop: 06/16/19 08:59 Last Admin: 05/20/19 08:31 Dose: 60 mg Documented by: Gabapentin (Neurontin) 300 mg PO TID [facility] Stop: 06/16/19 08:59 Last Admin: 05/20/19 08:31 Dose: 300 mg Documented by: Heparin Sodium (Porcine) (Heparin Sodium (Porcine)) 5,000 units SQ Q8 [facility] Stop: 06/16/19 05:59 Last Admin: 05/20/19 05:56 Dose: 5,000 units Documented by: Hydroxyzine HCl (Vistaril) 25 mg PO BID PRN PRN Reason: Anxiety Stop: 06/16/19 00:20 Sodium Chloride (Nss 1000ml) 1,000 mls @ 75 mls/hr IV .[id number] [facility] Stop: 06/16/19 00:20 Last Infusion: 05/20/19 08:39 Dose: 75 mls/hr Documented by: Ceftriaxone Sodium 2,000 mg/ (Dextrose) 70 mls @ 140 mls/hr IV Q24H [facility] Stop: 05/27/19 17:59 Last Infusion: 05/19/19 17:24 Dose: Infused Documented by: Acetaminophen (Ofirmev) 1,000 mg in 100 mls @ 400 mls/hr IV Q8H PRN PRN Reason: Pain Stop: 06/17/19 19:10 Last Infusion: 05/20/19 08:50 Dose: Infused Documented by: Magnesium Oxide (Mag-Ox) 400 mg PO QAM [facility] Stop: 06/16/19 08:59 Last Admin: 05/20/19 08:31 Dose: 400 mg Documented by: Metoprolol Succinate (Toprol Xl) 37.5 mg PO BID [facility] Stop: 06/16/19 00:20 Last Admin: 05/20/19 08:30 Dose: 37.5 mg Documented by: Nitroglycerin (Nitrostat) 0.4 mg SL UD PRN PRN Reason: Chest Pain Stop: 06/16/19 00:20 Ondansetron HCl (Zofran) 4 mg IV Q6H PRN PRN Reason: Nausea Stop: 06/16/19 00:20 Last Admin: 05/18/19 06:16 Dose: 4 mg Documented by: Ondansetron HCl (Zofran) 4 mg IV Q6H [facility] Stop: 06/17/19 09:29 Last Admin: 05/20/19 08:35 Dose: 4 mg Documented by: Oxcarbazepine (Trileptal) 300 mg PO BID [facility] Stop: 06/16/19 08:59 Last Admin: 05/20/19 08:31 Dose: 300 mg Documented by: Pantoprazole Sodium (Protonix) 40 mg PO BID [facility] Stop: 06/16/19 08:59 Last Admin: 05/20/19 08:32 Dose: 40 mg Documented by: Polyethylene Glycol (Miralax Powder Packet) 17 gm PO DAILY PRN PRN Reason: Constipation Stop: 06/16/19 00:20 Venlafaxine HCl (Effexor Extended Release) 150 mg PO DAILY [facility] Stop: 06/16/19 08:59 Last Admin: 05/20/19 08:31 Dose: 150 mg Documented by: Vitamin B Complex (Vitamin B Complex) 1 tab PO DAILY [facility] Stop: 06/17/19 08:59 Last Admin: 05/20/19 08:31 Dose: 1 tab Documented by: Vitamin D (Vitamin D3) 2,000 units PO DAILY [facility] Stop: 06/16/19 08:59 Last Admin: 05/20/19 08:31 Dose: 2,000 units Documented by:
[2019-05-20] MEDS: cefTRIAXone SODIUM 2,000 MG in DEXTROSE 5% 50 ML IV SCH (16:51)
[2019-05-20] MEDS: ATORVASTATIN 40 MG TAB PO SCH (19:35)
[2019-05-20] MEDS: CLOPIDOGREL BISULFATE 75 MG TAB PO SCH (19:35)
[2019-05-21] MEDS: SODIUM CHLORIDE 0.9% 1000ML 1,000 ML IV SCH (02:19)
[2019-05-21] MEDS: ONDANSETRON INJ 2 MG/ML 2 ML VIAL IV SCH ×4 (04:43→20:52)
[2019-05-21] MEDS: ACETAMINOPHEN 1,000 MG/100 ML VIAL IV PRN ×2 (04:43→14:03)
[2019-05-21] MEDS: HEPARIN SOD 5,000 UNIT/0.5 ML VIAL SQ SCH ×3 (04:45→20:52)
[2019-05-21 06:28] LABS: Basophils # (auto) 0.03 K/uL (0-0.2); Basophils % (auto) 0.4 %; Eosinophils # (auto) 0.12 K/uL (0-0.5); Eosinophils % (auto) 1.6 %; Hematocrit (blood only) 26.8 % (37-47); Hemoglobin 8.3 g/dL (12.0-16.0); Immature Granulocytes # (auto) 0.05 K/uL (0.00-0.02); Immature Granulocytes % (auto) 0.6 %; Lymphocytes # (auto) 0.91 K/uL (1.2-3.4); Lymphocytes % (auto) 11.8 %; Mean Platelet Volume 9.4 fL (7.4-10.4); Monocytes # (auto) 0.74 K/uL (0.11-0.59); Monocytes % (auto) 9.6 %; Neutrophils # (auto) 5.86 K/uL (1.4-6.5); Platelet Count 187 K/uL (130-400); RDW Coefficient of Variation 13.6 % (11.5-14.5); RDW Standard Deviation 46.4 fL (36.4-46.3); Red Blood Count 2.85 M/uL (4.2-5.4); White Blood Count 7.71 K/uL (4.8-10.8)
[2019-05-21 07:07] LABS: BUN Creatinine Ratio 8.5 (10-20); Calcium 8.9 mg/dl (8.5-10.1); Creatinine Clr Calc Pharmacy 64.8 ml/min; Est GFR (African American) 77.8; Est GFR (Non-African American) 67.1; Potassium 3.4 mmol/L (3.5-5.1)
[2019-05-21] MEDS ORDERED: HYDROmorphone INJ 0.5 MG/0.5 ML SYR IV STA (08:00)
[2019-05-21] MEDS: CHOLECALCIFEROL 1,000 UNITS TAB PO SCH (09:06)
[2019-05-21] MEDS: MAGNESIUM OXIDE 400 MG TAB PO SCH (09:06)
[2019-05-21] MEDS: VENLAFAXINE HCL XR 150 MG CAPXR PO SCH (09:06)
[2019-05-21] MEDS: DULOXETINE HCL 60 MG CAP PO SCH (09:06)
[2019-05-21] MEDS: VITAMIN B COMPLEX TAB PO SCH (09:06)
[2019-05-21] MEDS: OXcarbazepine 150 MG TABLET PO SCH ×2 (09:06→19:23)
[2019-05-21] MEDS: GABAPENTIN 300 MG CAP PO SCH ×3 (09:06→19:19)
[2019-05-21] MEDS: METOPROLOL SUCC 25MG EXT REL TAB PO SCH ×2 (09:07→19:19)
[2019-05-21] MEDS: PANTOprazole 40 MG TAB PO SCH ×2 (09:07→19:20)
[2019-05-21] MEDS: BUDESONIDE 90 MCG INH INH SCH ×2 (09:08→19:20)
[2019-05-21] MEDS ORDERED: POTASSIUM CHLORIDE 20 MEQ TABCR PO ONE (09:45)
--- NOTE | 2019-05-21 15:05 | XRay Report ---
XR chest 2V routine CLINICAL HISTORY: 63 years-old Female presenting with CHF. TECHNIQUE: PA and lateral views of the chest were obtained. COMPARISON: 05/16/2019. FINDINGS: Atherosclerosis of the aortic arch. Cardiac silhouette normal in size. Bilateral hilar prominence. Pu lmonary vascular prominence and coarsened lung markings. Opacity in the right mid to lower lung and t o a lesser extent the left lower lung is new from prior. No large effusion or pneumothorax. Slightly exaggerated thoracic kyphosis. Cholecystectomy clips noted. IMPRESSION: 1. Bilateral basilar predominant infiltrates new from prior. This is most concerning for pulmonary e ally given other evidence to suggest volume overload and congestive change. Infection cannot be exclu ded. Follow-up is advised. Electronically signed by: Tino Butcher M.D. 05/21/2019 3:04 PM
--- NOTE | 2019-05-21 15:10 | Hospitalist Progress Note ---
Date of Service May 21, 2019 Assessment & Plan (1) Acute pyelonephritis: Admitted with left flank pain associated with chills and shortness of breath CT scan of the abdomen and pelvis showed acute pyelonephritis involving the left side Has been on intravenous cefepime and feeling better Urine culture is growing gram-negative bacilli-E. coli and is pansensitive Blood cultures-negative Clinically improved and has minimal left renal angle pain-continues to have pain as of today 05/18 No fever and and or chills Clinically improved biochemically improved to Has been very lethargic Antibiotic was changed to intravenous ceftriaxone Will start PT and OT evaluation Looks much better today with less lethargy-advised to have more physical therapy Continues to have left renal angle pain-we will get ultrasound of the kidney system to rule out hydronephrosis::::No significant abnormality Clinically no fever and no genitourinary symptoms PERRI Likely secondary to dehydration and pyelonephritis Kidney function is slightly worse today with creatinine 1.53 We will continue intravenous fluid and advised more fluid intake orally Monitor PRP tomorrow (2) SOB (shortness of breath): Likely secondary to multiple comorbid conditions including COPD, asthma and sleep apnea No acute exacerbation Has been improving Denies any shortness of breath at rest Remains free of symptoms with normal saturation at room air (3) Acute pain of right knee: History of nephrolithiasis and renal cyst Pain in the left renal angle secondary to pyelonephritis for now Clinically better this morning Pain is a lot better and will avoid any narcotics (4) Osteoarthritis: Complaint to have left knee pain History of fall recently Clinically no acute arthritis involving left knee and no effusion We will continue with simple analgesics and physical therapy (5) Renal calculi: History of renal calculi Other medical conditions including GERD, chronic kidney disease, depression and anxiety, hypertension and hyperlipidemia and History of colon cancer status post surgery remain stable DVT prophylaxis Subcu heparin CODE STATUS-full Continue PT and OT Advised to participate morning physical therapy Clinically much better We will get PT and OT evaluation and possible discharge tomorrow Subjective 05/17 Patient was seen in telemetry unit She is a 63-year-old obese female with multiple medical problems as mentioned in history and physical was admitted with acute pyelonephritis Still complains some pain in the left renal angle Denies any nausea and vomiting, any fever and/or chills Shortness of breath is improved 05/18 The patient was seen and examined in telemetry unit She complains to have shakes all over the body which has been noted before She denies any acute shortness of breath Her pain has been controlled 05/19 The patient was seen and examined in telemetry unit She remains drowsy and complains some back pain Shaking of the extremities are resolved Denies any significant symptoms otherwise 05/20 The patient was seen and examined in telemetry unit She remains weak and lethargic and complains nonspecific headache Her flank pain is much improved Denies any other significant symptoms 05/21 Patient was seen and examined in telemetry unit She has been complaining of weakness and headache Still has left flank pain She denies any urinary symptoms Review of Systems Review of Systems: All systems reviewed and unremarkable except as noted below Respiratory: + cough Gastrointestinal: Left renal angle pain Neurologic: + headache(s) Generalized weakness Physical Exam Physical Exam: Lying in bed comfortably Constitutional: well developed, well nourished and + obese Eyes: PERRL, conjunctivae normal, anicteric sclerae ENMT: external ear and nose normal, oropharynx normal Neck: trachea midline, no thyromegaly Respiratory: normal respiratory effort Auscultation: + diminished lung sounds (At the bases with minimal crackles) Cardiovascular: Rate/Rhythm: regular rate and regular rhythm Extremities: + edema (Trace to 1+ edema bilaterally) Gastrointestinal (Abdomen): Inspection/Auscultation: abdomen normal to inspection and normal bowel sounds Percussion/Palpation: abdomen soft Tenderness left renal angle Neurologic: moves all extremities Lymphatic: no cervical or axillary lymphadenopathy Results & Data Vital Signs (Past 12 Hours) Vital Signs Temp Pulse Resp BP Pulse Ox 05/21/19 11:56 36.4 C L 84 15 133/83 2 L 05/21/19 11:01 91 05/21/19 09:32 95 H 18 91 05/21/19 07:52 36.8 C 98 H 22 153/91 H 94 05/21/19 04:23 37.0 C 83 18 106/58 L 94 Laboratory Results Short CBC 05/21/19 Range/Units 06:16 WBC 7.71 (4.8-10.8) K/uL Hgb 8.3 L (12.0-16.0) g/dL Hct 26.8 L (37-47) % Plt Count 187 (130-400) K/uL BMP 05/21/19 06:16 Sodium 146 H Potassium 3.4 L Chloride 111 H Carbon Dioxide 30 BUN 8 Creatinine 0.90 Glucose 128 H Calcium 8.9 Medications Administered Current Inpatient Medications Albuterol (Ventolin 0.083% 2.5mg/3ml) 2.5 mg INH Q4H PRN PRN Reason: Shortness Of Breath Or Wheezing Stop: 06/16/19 00:20 Last Admin: 05/21/19 09:30 Dose: 2.5 mg Documented by: Atorvastatin Calcium (Lipitor) 40 mg PO QPM MARLA Stop: 06/16/19 20:59 Last Admin: 05/20/19 19:35 Dose: 40 mg Documented by: Budesonide (Pulmicort Flexhaler) 1 puffs INH BID MARLA Stop: 06/16/19 08:59 Last Admin: 05/21/19 09:08 Dose: 1 puffs Documented by: Clopidogrel Bisulfate (Plavix) 75 mg PO QPM MARLA Stop: 06/16/19 20:59 Last Admin: 05/20/19 19:35 Dose: 75 mg Documented by: Duloxetine HCl (Cymbalta) 60 mg PO DAILY MARLA Stop: 06/16/19 08:59 Last Admin: 05/21/19 09:06 Dose: 60 mg Documented by: Gabapentin (Neurontin) 300 mg PO TID MARLA Stop: 06/16/19 08:59 Last Admin: 05/21/19 14:03 Dose: 300 mg Documented by: Heparin Sodium (Porcine) (Heparin Sodium (Porcine)) 5,000 units SQ Q8 MARLA Stop: 06/16/19 05:59 Last Admin: 05/21/19 14:03 Dose: 5,000 units Documented by: Hydroxyzine HCl (Vistaril) 25 mg PO BID PRN PRN Reason: Anxiety Stop: 06/16/19 00:20 Ceftriaxone Sodium 2,000 mg/ (Dextrose) 70 mls @ 140 mls/hr IV Q24H MARLA Stop: 05/27/19 17:59 Last Infusion: 05/20/19 17:21 Dose: Infused Documented by: Acetaminophen (Ofirmev) 1,000 mg in 100 mls @ 400 mls/hr IV Q8H PRN PRN Reason: Pain Stop: 06/17/19 19:10 Last Infusion: 05/21/19 14:19 Dose: Infused Documented by: Magnesium Oxide (Mag-Ox) 400 mg PO QAM [facility] Stop: 06/16/19 08:59 Last Admin: 05/21/19 09:06 Dose: 400 mg Documented by: Metoprolol Succinate (Toprol Xl) 37.5 mg PO BID [facility] Stop: 06/16/19 00:20 Last Admin: 05/21/19 09:07 Dose: 37.5 mg Documented by: Nitroglycerin (Nitrostat) 0.4 mg SL UD PRN PRN Reason: Chest Pain Stop: 06/16/19 00:20 Ondansetron HCl (Zofran) 4 mg IV Q6H PRN PRN Reason: Nausea Stop: 06/16/19 00:20 Last Admin: 05/18/19 06:16 Dose: 4 mg Documented by: Ondansetron HCl (Zofran) 4 mg IV Q6H [facility] Stop: 06/17/19 09:29 Last Admin: 05/21/19 14:04 Dose: 4 mg Documented by: Oxcarbazepine (Trileptal) 300 mg PO BID [facility] Stop: 06/16/19 08:59 Last Admin: 05/21/19 09:06 Dose: 300 mg Documented by: Pantoprazole Sodium (Protonix) 40 mg PO BID [facility] Stop: 06/16/19 08:59 Last Admin: 05/21/19 09:07 Dose: 40 mg Documented by: Polyethylene Glycol (Miralax Powder Packet) 17 gm PO DAILY PRN PRN Reason: Constipation Stop: 06/16/19 00:20 Venlafaxine HCl (Effexor Extended Release) 150 mg PO DAILY [facility] Stop: 06/16/19 08:59 Last Admin: 05/21/19 09:06 Dose: 150 mg Documented by: Vitamin B Complex (Vitamin B Complex) 1 tab PO DAILY MARLA Stop: 06/17/19 08:59 Last Admin: 05/21/19 09:06 Dose: 1 tab Documented by: Vitamin D (Vitamin D3) 2,000 units PO DAILY [facility] Stop: 06/16/19 08:59 Last Admin: 05/21/19 09:06 Dose: 2,000 units Documented by:
--- NOTE | 2019-05-21 15:29 | Ultrasound Report ---
ULTRASOUND KIDNEYS AND BLADDER CLINICAL HISTORY: Left flank pain. COMPARISON STUDY: Abdominal CT dated 05/16/2019. TECHNIQUE: Real-time, grayscale, and color flow sonography of the kidneys and bladder is performed. I mages are reviewed in the transverse and longitudinal planes. FINDINGS: Kidneys: There is asymmetric cortical atrophy of the left kidney as compared to the right. The right kidney measures 10.9 x 5.8 x 6.4 cm and the left kidney measures 11.9 x 5.6 x 5.1 cm. There is no hy dronephrosis. A small calculus is noted in the right kidney. The patient's known left renal calculi w ere not well visualized. A 7.3 cm cyst is identified in the upper pole of the left kidney. There is n o sonographic evidence of solid mass lesion. No perinephric fluid is identified. Bladder: The bladder is decompressed, grossly unremarkable, and not well evaluated. Ureteral jets wer e not seen. Upper abdomen: Survey images of the liver show evidence of steatosis. IMPRESSION: 1. There is asymmetric cortical atrophy of the left kidney as compared to the right. 2. No hydronephrosis is identified. 3. A small right renal calculus is noted. 4. The patient's known left renal calculi seen by CT were not visible on today's ultrasound. 5. The bladder was decompressed and not well evaluated. Electronically signed by: Caesar Yoon M.D. 05/21/2019 3:28 PM
--- NOTE | 2019-05-21 16:35 | CT Scan Report ---
CT head/brain wo con CLINICAL HISTORY: 63 years-old Female presenting with Severe Headache,R/O Aneurysm. TECHNIQUE: Multidetector CT imaging of the head was performed without the use of intravenous contrast . IV contrast: None. One or more dose lowering techniques were used consistent with the principles of ALARA (as low as reasonably achievable), including automatic exposure control, mA or kV adjustment t o individual patient size, and/or use of iterative reconstruction. COMPARISON: 06/07/2016. CT DOSE (mGy.cm): The estimated cumulative dose is 537.48 mGy.cm. FINDINGS: Revenue Officer topogram: The patient is edentulous. Ventricles and sulci normal in size. No hemorrhage. Brain parenchyma normal in appearance with preser elena pierre-white differentiation. No acute territorial infarct. No mass effect or midline shift. No ext ra-axial fluid collection. Paranasal sinuses and mastoid air cells clear. Calvarium intact. IMPRESSION: 1. No acute intracranial abnormality. Electronically signed by: Tino Butcher M.D. 05/21/2019 4:34 PM
[2019-05-21] MEDS: FUROSEMIDE 40 MG/4 ML VIAL IV STA ×2 (16:48→17:36)
[2019-05-21] MEDS ORDERED: FUROSEMIDE 40 MG/4 ML VIAL IV ONE (17:23)
[2019-05-21] MEDS ORDERED: FUROSEMIDE 40 MG/4 ML VIAL IV STA (17:26)
[2019-05-21] MEDS: cefTRIAXone SODIUM 2,000 MG in DEXTROSE 5% 50 ML IV SCH (17:27)
[2019-05-21] MEDS: TRAMADOL HCL 50 MG TABLET PO PRN (19:18)
[2019-05-21] MEDS: ATORVASTATIN 40 MG TAB PO SCH (19:19)
[2019-05-21] MEDS: CLOPIDOGREL BISULFATE 75 MG TAB PO SCH (19:19)
[2019-05-22] MEDS: ONDANSETRON INJ 2 MG/ML 2 ML VIAL IV SCH ×4 (03:28→22:08)
[2019-05-22] MEDS: HEPARIN SOD 5,000 UNIT/0.5 ML VIAL SQ SCH ×3 (05:40→22:08)
[2019-05-22] MEDS: OXcarbazepine 150 MG TABLET PO SCH ×2 (08:43→21:10)
[2019-05-22] MEDS: GABAPENTIN 300 MG CAP PO SCH ×3 (08:43→21:06)
[2019-05-22] MEDS: PANTOprazole 40 MG TAB PO SCH ×2 (08:43→21:07)
[2019-05-22] MEDS: VITAMIN B COMPLEX TAB PO SCH (08:43)
[2019-05-22] MEDS: METOPROLOL SUCC 25MG EXT REL TAB PO SCH ×2 (08:43→21:09)
[2019-05-22] MEDS: VENLAFAXINE HCL XR 150 MG CAPXR PO SCH (08:43)
[2019-05-22] MEDS: CHOLECALCIFEROL 1,000 UNITS TAB PO SCH (08:43)
[2019-05-22] MEDS: DULOXETINE HCL 60 MG CAP PO SCH (08:44)
[2019-05-22] MEDS: MAGNESIUM OXIDE 400 MG TAB PO SCH (08:44)
[2019-05-22] MEDS: BUDESONIDE 90 MCG INH INH SCH ×2 (08:45→21:08)
[2019-05-22] MEDS: ACETAMINOPHEN 1,000 MG/100 ML VIAL IV PRN (08:56)
--- NOTE | 2019-05-22 12:03 | Hospitalist Progress Note ---
Date of Service May 22, 2019 Assessment & Plan (1) Acute pyelonephritis: Admitted with left flank pain associated with chills and shortness of breath CT scan of the abdomen and pelvis showed acute pyelonephritis involving the left side Has been on intravenous cefepime and feeling better Urine culture is growing gram-negative bacilli-E. coli and is pansensitive Blood cultures-negative Clinically improved and has minimal left renal angle pain-continues to have pain as of today 05/18 No fever and and or chills Clinically improved biochemically improved to Has been very lethargic Antibiotic was changed to intravenous ceftriaxone Will start PT and OT evaluation Looks much better today with less lethargy-advised to have more physical therapy Continues to have left renal angle pain-we will get ultrasound of the kidney system to rule out hydronephrosis::::No significant abnormality Clinically no fever and no genitourinary symptoms Will discharge her today PERRI Likely secondary to dehydration and pyelonephritis Kidney function is slightly worse today with creatinine 1.53 We will continue intravenous fluid and advised more fluid intake orally Monitor PRP tomorrow-normal (2) SOB (shortness of breath): Likely secondary to multiple comorbid conditions including COPD, asthma and sleep apnea No acute exacerbation Has been improving Denies any shortness of breath at rest Remains free of symptoms with normal saturation at room air (3) Acute pain of right knee: History of nephrolithiasis and renal cyst Pain in the left renal angle secondary to pyelonephritis for now Clinically better this morning Pain is a lot better and will avoid any narcotics Denies any more pain in the right knee-has been getting physical therapy (4) Osteoarthritis: Complaint to have left knee pain History of fall recently Clinically no acute arthritis involving left knee and no effusion We will continue with simple analgesics and physical therapy (5) Renal calculi: History of renal calculi Other medical conditions including GERD, chronic kidney disease, depression and anxiety, hypertension and hy perlipidemia and History of colon cancer status post surgery remain stable DVT prophylaxis Subcu heparin CODE STATUS-full Continue PT and OT Advised to participate morning physical therapy Will discharge home this afternoon Clinically much better We will get PT and OT evaluation and possible discharge tomorrow Subjective 05/17 Patient was seen in telemetry unit She is a 63-year-old obese female with multiple medical problems as mentioned in history and physical was admitted with acute pyelonephritis Still complains some pain in the left renal angle Denies any nausea and vomiting, any fever and/or chills Shortness of breath is improved 05/18 The patient was seen and examined in telemetry unit She complains to have shakes all over the body which has been noted before She denies any acute shortness of breath Her pain has been controlled 05/19 The patient was seen and examined in telemetry unit She remains drowsy and complains some back pain Shaking of the extremities are resolved Denies any significant symptoms otherwise 05/20 The patient was seen and examined in telemetry unit She remains weak and lethargic and complains nonspecific headache Her flank pain is much improved Denies any other significant symptoms 05/21 Patient was seen and examined in telemetry unit She has been complaining of weakness and headache Still has left flank pain She denies any urinary symptoms 05/22 Patient was seen and examined in telemetry unit She has been very weak and lethargic but her headache and abdominal pain are improved She has been getting physical therapy and said that ready to be discharged today Review of Systems Review of Systems: All systems reviewed and unremarkable except as noted below Constitutional: + weakness (Back to her baseline) Respiratory: no cough and no dyspnea Cardiovascular: no chest pain Gastrointestinal: no abdominal pain Left renal angle pain Neurologic: + headache(s) Generalized weakness Physical Exam Physical Exam: Lying in bed comfortably Constitutional: well developed, well nourished and + obese; no acute distress Eyes: PERRL, conjunctivae normal, anicteric sclerae ENMT: external ear and nose normal, oropharynx normal Neck: trachea midline, no thyromegaly Respiratory: normal respiratory effort Auscultation: + diminished lung sounds (At the bases with minimal crackles) Cardiovascular: Rate/Rhythm: regular rate and regular rhythm Extremities: + edema (Trace to 1+ edema bilaterally) Gastrointestinal (Abdomen): Inspection/Auscultation: abdomen normal to inspection and normal bowel sounds Percussion/Palpation: abdomen soft Musculoskeletal: No acute arthritis in any of the joint Neurologic: moves all extremities Generally weak Lymphatic: no cervical or axillary lymphadenopathy Results & Data Vital Signs (Past 12 Hours) Vital Signs Temp Pulse Pulse Resp BP BP Pulse Ox 05/22/19 11:33 36.8 C 75 20 121/85 96 05/22/19 06:59 36.8 C 77 16 124/82 96 05/22/19 04:07 36.8 C 86 21 125/82 96 05/22/19 01:59 84
[2019-05-22] MEDS: cefTRIAXone SODIUM 2,000 MG in DEXTROSE 5% 50 ML IV SCH (18:29)
[2019-05-22] MEDS: TRAMADOL HCL 50 MG TABLET PO PRN (19:14)
[2019-05-22] MEDS: ATORVASTATIN 40 MG TAB PO SCH (21:05)
[2019-05-22] MEDS: CLOPIDOGREL BISULFATE 75 MG TAB PO SCH (21:06)
[2019-05-22] MEDS: cefUROXime axetil 250 MG TABLET PO SCH (22:03)
[2019-05-23] MEDS: TRAMADOL HCL 50 MG TABLET PO PRN ×3 (02:34→13:30)
[2019-05-23] MEDS ORDERED: ONDANSETRON 4 MG OD TAB PO PRN (02:54)
[2019-05-23] MEDS: ONDANSETRON INJ 2 MG/ML 2 ML VIAL IV SCH ×3 (03:12→15:24)
[2019-05-23] MEDS: HEPARIN SOD 5,000 UNIT/0.5 ML VIAL SQ SCH ×2 (05:22→13:09)
[2019-05-23 05:38] LABS: Hematocrit (blood only) 29.5 % (37-47); Hemoglobin 8.9 g/dL (12.0-16.0); Mean Corpuscular Hgb Conc 30.2 g/dL (32-36); Mean Corpuscular Volume 94.6 fL (80-100); Mean Platelet Volume 9.2 fL (7.4-10.4); Platelet Count 243 K/uL (130-400); RDW Coefficient of Variation 13.7 % (11.5-14.5); Red Blood Count 3.12 M/uL (4.2-5.4); White Blood Count 7.09 K/uL (4.8-10.8)
[2019-05-23] MEDS: OXcarbazepine 150 MG TABLET PO SCH (07:40)
[2019-05-23] MEDS: CHOLECALCIFEROL 1,000 UNITS TAB PO SCH (07:40)
[2019-05-23] MEDS: VITAMIN B COMPLEX TAB PO SCH (07:40)
[2019-05-23] MEDS: METOPROLOL SUCC 25MG EXT REL TAB PO SCH (07:41)
[2019-05-23] MEDS: PANTOprazole 40 MG TAB PO SCH (07:41)
[2019-05-23] MEDS: VENLAFAXINE HCL XR 150 MG CAPXR PO SCH (07:42)
[2019-05-23] MEDS: MAGNESIUM OXIDE 400 MG TAB PO SCH (07:42)
[2019-05-23] MEDS: GABAPENTIN 300 MG CAP PO SCH ×2 (07:42→13:18)
[2019-05-23] MEDS: BUDESONIDE 90 MCG INH INH SCH (07:42)
[2019-05-23] MEDS: cefUROXime axetil 250 MG TABLET PO SCH (07:42)
[2019-05-23] MEDS: DULOXETINE HCL 60 MG CAP PO SCH (07:42)
--- NOTE | 2019-05-23 10:42 | Hospitalist Progress Note ---
Date of Service May 23, 2019 Assessment & Plan (1) Acute pyelonephritis: Admitted with left flank pain associated with chills and shortness of breath CT scan of the abdomen and pelvis showed acute pyelonephritis involving the left side Has been on intravenous cefepime and feeling better Urine culture is growing gram-negative bacilli-E. coli and is pansensitive Blood cultures-negative Clinically improved and has minimal left renal angle pain-continues to have pain as of today 8/ No fever and and or chills Clinically improved biochemically improved to Has been very lethargic Antibiotic was changed to intravenous ceftriaxone Will start PT and OT evaluation Looks much better today with less lethargy-advised to have more physical therapy Continues to have left renal angle pain-we will get ultrasound of the kidney system to rule out hydronephrosis::::No significant abnormality Clinically no fever and no genitourinary symptoms Has been on oral cefuroxime since yesterday and will finish the course of an outpatient Will discharge her today PERRI Likely secondary to dehydration and pyelonephritis Kidney function is slightly worse today with creatinine 1.53 We will continue intravenous fluid and advised more fluid intake orally Monitor PRP tomorrow-normal (2) SOB (shortness of breath): Likely secondary to multiple comorbid conditions including COPD, asthma and sleep apnea No acute exacerbation Has been improving Denies any shortness of breath at rest Remains free of symptoms with normal saturation at room air She underwent to a step O2 saturation test last 70 She will need 2 L/min oxygen via nasal cannula at rest and 3 L with ambulation She will be discharged home this evening (3) Acute pain of right knee: History of nephrolithiasis and renal cyst Pain in the left renal angle secondary to pyelonephritis for now Clinically better this morning Pain is a lot better and will avoid any narcotics Denies any more pain in the right knee-has been getting physical therapy She was given Ultram for additional pain control (4) Osteoarthritis: Complaint to have left knee pain History of fall recently Clinically no acute arthritis involving left knee and no effusion We will continue with simple analgesics and physical therapy (5) Renal calculi: History of renal calculi Other medical conditions including GERD, chronic kidney disease, depression and anxiety, hypertension and hyperlipidemia and History of colon cancer status post surgery remain stable DVT prophylaxis Subcu heparin CODE STATUS-full Continue PT and OT Advised to participate morning physical therapy Discharge home this afternoon or evening Will discharge home this afternoon Clinically much better We will get PT and OT evaluation and possible discharge tomorrow Subjective 05/17 Patient was seen in telemetry unit She is a 63-year-old obese female with multiple medical problems as mentioned in history and physical was admitted with acute pyelonephritis Still complains some pain in the left renal angle Denies any nausea and vomiting, any fever and/or chills Shortness of breath is improved 05/18 The patient was seen and examined in telemetry unit She complains to have shakes all over the body which has been noted before She denies any acute shortness of breath Her pain has been controlled 05/19 The patient was seen and examined in telemetry unit She remains drowsy and complains some back pain Shaking of the extremities are resolved Denies any significant symptoms otherwise 05/20 The patient was seen and examined in telemetry unit She remains weak and lethargic and complains nonspecific headache Her flank pain is much improved Denies any other significant symptoms 05/21 Patient was seen and examined in telemetry unit She has been complaining of weakness and headache Still has left flank pain She denies any urinary symptoms 05/22 Patient was seen and examined in telemetry unit She has been very weak and lethargic but her headache and abdominal pain are improved She has been getting physical therapy and said that ready to be discharged today 05/23 Patient was seen and examined in medical floor She remains stable today Denies any shortness of breath and/or significant symptoms She has had to do steps O2 saturation test last evening and she requires oxygen She will be going home this afternoon Review of Systems Review of Systems: All systems reviewed and unremarkable except as noted below Constitutional: + weakness (Back to her baseline) Gastrointestinal: Left renal angle pain Neurologic: + headache(s) Generalized weakness Physical Exam Physical Exam: Lying in bed comfortably Constitutional: well developed, well nourished and + obese; no acute distress Eyes: PERRL, conjunctivae normal, anicteric sclerae ENMT: external ear and nose normal, oropharynx normal Neck: trachea midline, no thyromegaly Respiratory: normal respiratory effort Auscultation: + diminished lung so unds (At the bases with minimal crackles) Cardiovascular: Rate/Rhythm: regular rate and regular rhythm Extremities: + edema (Trace to 1+ edema bilaterally) Gastrointestinal (Abdomen): Inspection/Auscultation: abdomen normal to inspection and normal bowel sounds Percussion/Palpation: abdomen soft Neurologic: moves all extremities Generally weak Lymphatic: no cervical or axillary lymphadenopathy Results & Data Vital Signs (Past 12 Hours) Vital Signs Temp Pulse Pulse Resp BP Pulse Ox 05/23/19 07:36 36.8 C 79 18 112/67 91 05/22/19 23:13 36.7 C 73 18 93/56 L 92
--- NOTE | 2019-05-23 19:59 | Discharge Summary ---
Date of Service May 23, 2019 Admission HPI Per Admitting Provider DICTATED BY: He Stack MD DATE OF ADMISSION: 05/16/2019 CHIEF COMPLAINT: Chills and shortness of breath at home and also back pain and left-sided flank pain. HISTORY OF PRESENT ILLNESS: This is a 63-year-old female with past medical history significant for hyperlipidemia, obstructive sleep apnea, oropharyngeal dysphagia, hypertension, reflux esophagitis, morbid obesity, chronic kidney disease stage III, calculus of kidney, left renal cyst, rosacea, lumbar degenerative disc disease, history of opiate withdrawal, history of anemia, history of colon cancer, status post surgery, history of anxiety and depression who presents with not feeling well, shortness of breath, left flank pain and chills going for a week. The patient lives alone. She states she ambulates with a walker and sometimes uses wheelchair and sometimes a cane. She has caregivers who come a couple of times every day in the morning and evening . When the caregiver came to check on her today, she was covered with blanket, sweating with chills. There was a question of some fever and she was short of breath and they waited for some time, but she still feels the same and they brought her here. She was tachycardic in the Emergency Room but she was saturating okay on room air. Blood pressure was okay. There was no temperature spike. CAT scan of the abdomen and pelvis showed left-sided pyelonephritis. Urinalysis was positive. So, we are called for possible sepsis and pyelonephritis. The patient is currently resting comfortably and hemodynamically stable except for tachycardia. She states she gets chest discomfort like burning sensation whenever she uses the neb treatments. Currently shortness of breath improved, talking clearly in sentences, not in respiratory distress, has some headaches. She always has some dizziness and some blurred vision from her medications. Denies any earache. No runny nose. No sore throat. No cough. She has difficulty swallowing for the meats sometimes. No nausea. No vomiting. She has some lower abdominal discomfort. Denies any blood in stools or black stools. Denies any burning micturition or blood in the urine. No swelling in the legs. No rash. Appetite is not great since last 1 week, not sleeping well since about a week, requests for pain medications. Admission Exam Per Admitting Provider GENERAL: The patient is obese, not in acute distress. VITAL SIGNS: Temperature 37.4, pulse 119, respiratory rate 20, blood pressure 147/94 and oxygen 93% on room air. HEENT: No pallor. No icterus. Pupils are equal, round and reactive to light. NECK: No JVD. No neck masses. No carotid bruit. CARDIOVASCULAR: S1, S2 heard. Tachycardia. No murmurs. RESPIRATORY SYSTEM: Normal AP diameter. No accessory muscle use. No wheezing. No crackles. ABDOMEN: Soft. Bowel sounds present. Nontender. No distention. Left CVA tenderness present. No guarding. No rigidity. CENTRAL NERVOUS SYSTEM: Cranial nerves II through XII grossly intact. Nonfocal. EXTREMITIES: No edema. No erythema. Principal Diagnosis Acute pyelonephritis, acute kidney injury which improved Discharge Exam Constitutional well developed, well nourished and + obese; no acute distress Eyes PERRL, conjunctivae normal, anicteric sclerae ENMT external ear and nose normal, oropharynx normal Neck trachea midline, no thyromegaly Respiratory normal respiratory effort Auscultation: + diminished lung sounds (At the bases with minimal crackles) Cardiovascular Rate/Rhythm: regular rate and regular rhythm Extremities: + edema (Trace to 1+ edema bilaterally) Gastrointestinal (Abdomen) Inspection/Auscultation: abdomen normal to inspection and normal bowel sounds Percussion/Palpation: abdomen soft Neurologic moves all extremities Lymphatic no cervical or axillary lymphadenopathy Discharge Data Allergies Allergy/AdvReac Type Severity Reaction Status Date / Time salicylates Allergy Severe SHORTNESS Verified 10/16/18 00:34 OF BREATH Iodinated Contrast- Oral and Allergy Intermediate EYES Verified 10/16/18 00:34 IV Dye SWELLING meperidine Allergy Intermediate ITCH Verified 10/16/18 00:34 morphine Allergy Intermediate ITCH Verified 10/16/18 00:34 aspirin Allergy Mild FACIAL Verified 10/16/18 00:34 SWELLING hydromorphone Allergy Mild RASH/ITCHIN Verified 05/17/19 00:59 G tramadol AdvReac Mild itch Verified 10/16/18 00:34 Consultations 05/16/19 22:13 ED Decision to Admit Stat 05/17/19 00:21 Consult Case Management - Discharge Planning Routine Ordered Studies 05/16/19 20:21 CT abd pelvis wo con Stat US venous doppler LE BI Stat 05/21/19 13:22 US renal/blad retro comp Routine 05/21/19 15:45 CT head/brain wo con Routine Hospital Course (1) Acute pyelonephritis: Admitted with left flank pain associated with chills and shortness of breath CT scan of the abdomen and pelvis showed acute pyelonephritis involving the left side Has been on intravenous cefepime and feeling better Urine culture is growing gram-negative bacilli-E. coli and is pansensitive Blood cultures-negative Clinically improved and has minimal left renal angle pain-continues to have pain as of today 05/18 No fever and and or chills Clinically improved biochemically improved to Has been very lethargic Antibiotic was changed to intravenous ceftriaxone Will start PT and OT evaluation Looks much better today with less lethargy-advised to have more physical therapy Continues to have left renal angle pain-we will get ultrasound of the kidney system to rule out hydronephrosis::::No significant abnormality Clinically no fever and no genitourinary symptoms Has been on oral cefuroxime since yesterday and will finish the course of an outpatient Will discharge her today PERRI Likely secondary to dehydration and pyelonephritis Kidney function is slightly worse today with creatinine 1.53 We will continue intravenous fluid and advised more fluid intake orally Monitor PRP tomorrow-normal (2) SOB (shortness of breath): Likely secondary to multiple comorbid conditions including COPD, asthma and sleep apnea No acute exacerbation Has been improving Denies any shortness of breath at rest Remains free of symptoms with normal saturation at room air She underwent to a step O2 saturation test last 70 She will need 2 L/min oxygen via nasal cannula at rest and 3 L with ambulation She will be discharged home this evening (3) Acute pain of right knee: History of nephrolithiasis and renal cyst Pain in the left renal angle secondary to pyelonephritis for now Clinically better this morning Pain is a lot better and will avoid any narcotics Denies any more pain in the right knee-has been getting physical therapy She was given Ultram for additional pain control (4) Osteoarthritis: Complaint to have left knee pain History of fall recently Clinically no acute arthritis involving left knee and no effusion We will continue with simple analgesics and physical therapy (5) Renal calculi: History of renal calculi Other medical conditions including GERD, chronic kidney disease, depression and anxiety, hypertension and hyperlipidemia and History of colon cancer status post surgery remain stable DVT prophylaxis Subcu heparin CODE STATUS-full Continue PT and OT Advised to participate morning physical therapy Discharge home this afternoon or evening Will discharge home this afternoon Clinically much better We will get PT and OT evaluation and possible discharge tomorrow Total Time Total Time Spent Total Time Spent (In Minutes): 35 minutes Total Time Includes: Examination of the Patient, Discharge Planning, Medication Reconciliation and Communication With Other Providers Discharge Plan Discharge Items Patient Disposition: Home - Home Health Services Reason For Visit: SOB,CHILLS Discharge Diagnosis: Acute pyelonephritis, acute kidney injury which improved Condition: Fair Discharge Goals: Decrease discomfort, Improve function and Increase independence Activity: Resume your previous activity Non-emergency contact: Primary Care Provider Call non-emergency contact if: you have any medication questions and your symptoms worsen Follow-up/Referrals: Toño Naidu MD [Primary Care Provider] - 05/29/19 10:45 am Diet: Heart Healthy Addtl Provider Instructions: Try to drink more fluid Take precaution to avoid fall Oxygen prescribed Prescriptions: New tramadol 50 mg Tablet 50 mg PO Q4H PRN (Reason: pain) 3 Days Qty: 12 RF: 0 cefuroxime axetil 250 mg tablet 250 mg PO BID 7 Days Qty: 14 RF: 0 Continued atorvastatin [Lipitor] 40 mg Tablet 40 mg PO QPM RF: 0 clopidogrel [Plavix] 75 mg Tablet 75 mg PO QPM RF: 0 magnesium oxide 400 mg (241.3 mg magnesium) Tablet 400 mg PO QAM RF: 0 pantoprazole [Protonix] 40 mg Tablet,Delayed Release (Dr/Ec) 40 mg PO BID RF: 0 gabapentin 300 mg Capsule 300 mg PO TID RF: 0 hydroxyzine HCl 25 mg Tablet 25 mg PO BID PRN (Reason: Anxiety) RF: 0 riboflavin (vitamin B2) 400 mg Tablet 400 mg PO QPM RF: 0 metoprolol succinate 25 mg tablet extended release 24 hr 37.5 mg PO BID RF: 0 duloxetine 60 mg Capsule,Delayed Release(Dr/Ec) 60 mg PO DAILY RF: 0 oxcarbazepine 300 mg tablet 300 mg PO BID RF: 0 albuterol sulfate 2.5 mg /3 mL (0.083 %) Solution For Nebulization 2.5 mg inhalation Q4H PRN (Reason: Shortness Of Breath Or Wheezing) RF: 0 budesonide 1 mg/2 mL suspension for nebulization 1 mg inhalation BID RF: 0 cholecalciferol (vitamin D3) [Vitamin D3] 2,000 unit Capsule 2,000 unit PO DAILY RF: 0 Effexor XR 150 mg 150 mg PO DAILY RF: 0 Stand-Alone Forms: [facility] [employer] [facility]/Other Patient Handouts: Shortness of Breath Control Stress, Headache Pain Discharge Orders: Discharge Order (Routine); Ordered 05/23/19 Ordered By: Annette Modi Admission Data Admit Date/Time: 05/16/19 23:07 Attending Provider: Annette Modi Admit Provider: He Stack Primary Care Provider: Toño Naidu Other Providers: He Stack Service: Surgical Services Other Interventions: Discharge Summary Assessment (RN) Last Done: 05/23/19 16:26 DC Date/Time DO NOT enter until pt leaves facility: 05/23/19 16:54
== END 2019-05-23 16:54 | disposition home health service (06) | DRG 690 ==
LOC: ED 20:08 → 2S 23:07 → 3W 05-22 17:36

== ENCOUNTER 2019-05-25 21:07 | Inpatient (IN) ==
[2019-05-25] MEDS ORDERED: cefTRIAXone SODIUM 2,000 MG/70 ML BAG IV STA (21:45)
[2019-05-25] MEDS ORDERED: SODIUM CHLORIDE 0.9% 1000ML 500 ML IV ONE (21:45)
[2019-05-25 21:58] LABS: Basophils # (auto) 0.03 K/uL (0-0.2); Basophils % (auto) 0.4 %; Eosinophils # (auto) 0.09 K/uL (0-0.5); Eosinophils % (auto) 1.2 %; Hematocrit (blood only) 36.5 % (37-47); Hemoglobin 11.1 g/dL (12.0-16.0); Immature Granulocytes # (auto) 0.08 K/uL (0.00-0.02); Lymphocytes # (auto) 1.52 K/uL (1.2-3.4); Lymphocytes % (auto) 19.6 %; Mean Corpuscular Hgb Conc 30.4 g/dL (32-36); Mean Corpuscular Volume 93.4 fL (80-100); Mean Platelet Volume 9.9 fL (7.4-10.4); Monocytes # (auto) 0.68 K/uL (0.11-0.59); Monocytes % (auto) 8.8 %; Neutrophils # (auto) 5.34 K/uL (1.4-6.5); Platelet Count 389 K/uL (130-400); RDW Standard Deviation 47.2 fL (36.4-46.3); Red Blood Count 3.91 M/uL (4.2-5.4); White Blood Count 7.74 K/uL (4.8-10.8)
[2019-05-25 21:59] LABS: Alanine Aminotransferase 55 U/L (12-78); Albumin Level 3.2 gm/dl (3.4-5.0); Aspartate Aminotransferase 44 U/L (15-37); BUN Creatinine Ratio 11.2 (10-20); Blood Urea Nitrogen 10 mg/dl (7-18); Calcium 9.9 mg/dl (8.5-10.1); Carbon Dioxide 33 mmol/L (21-32); Chloride 103 mmol/L (98-107); Creatinine Clr Calc Pharmacy 65.9 ml/min; Est GFR (African American) 75.7; Est GFR (Non-African American) 65.3; Glucose 138 mg/dl (70-99); Magnesium 2.2 mg/dl (1.8-2.4); Potassium 3.5 mmol/L (3.5-5.1); Sodium 143 mmol/L (136-145)
[2019-05-25 22:03] LABS: Albumin Globulin Ratio 0.7 (0.9-2); Alkaline Phosphatase 150 U/L (45-117); Bilirubin,Total 0.4 mg/dl (0.2-1); Globulin 4.9 gm/dl (2.5-4.0); Total Protein 8.1 gm/dl (6.4-8.2); Troponin I < 0.015 ng/ml (0-0.045)
--- NOTE | 2019-05-25 22:06 | XRay Report ---
XR chest 1V portable CLINICAL HISTORY: Sepsis dyspnea COMPARISON STUDY: 05/21/2019 FINDINGS: The bones soft tissues and hemidiaphragms are normal. The cardiomediastinal silhouette is n ormal. The lungs are clear. The pulmonary vasculature is normal. IMPRESSION: Negative chest. The above report was generated using voice recognition software. It may contain grammatical, syntax or spelling errors. Electronically signed by: Francisco Javier Marquez M.D. 05/25/2019 10:04 PM
[2019-05-25 22:08] LABS: Appearance Urine Cloudy (Clear); Bacteria Urine Automated Negative (Negative); Bilirubin Urine Negative (Negative); Blood Urine Trace (Negative); Color Urine Yellow; Epithelial Cell Urine Auto >30 /lpf (0-5); Glucose Urine UA Negative (Negative); Ketones Urine 2+ (Negative); Leukocyte Esterase Urine 1+ (Negative); Nitrite Urine Negative (Negative); Protein Urine 3+ (Negative); Specific Gravity Urine 1.019 (1.000-1.030); Urobilinogen Urine Negative (Negative); WBC Urine Automated >30 /hpf (0-5); pH Urine 6.5 (4.5-7.5)
[2019-05-25 22:17] LABS: Renal Epithelial Cells Urine 0-5 /lpf (0-5)
[2019-05-25 22:38] LABS: Partial Thromboplastin Ratio 0.8; Partial Thromboplastin Time 22.6 Seconds (21.0-31.0); Prothrombin Time 10.6 Seconds (9.0-12.0)
--- NOTE | 2019-05-25 22:57 | Emergency Department Note ---
History of Present Illness General Chief complaint: Nausea Stated complaint: nausea, kidney infection History of Present Illness Maximum Pain Intensity: 8 This 63-year-old presents to the ER complaining of abdominal pain, fever, chills and vomiting Location: Generalized Quality: Nauseous Severity: Moderate Duration: Past 2 days Timing: Started 2 days ago Context: Patient's been unable to take her antibiotics and came back in Modifying factors: better with nothing; worse with drinking Patient states she was discharged yesterday with antibiotics for pyelonephritis. She has been unable to take them. She comments of fever, chills, nausea, vomiting and abdominal pain. She states she lives alone. Patient denies chest pain, dyspnea, headache, cough, congestion. She has been unable to keep fluids down. Home Medications Home Medications Medication Instructions Recorded Confirmed Type atorvastatin [Lipitor] 40 mg PO QPM 07/12/18 05/25/19 History clopidogrel [Plavix] 75 mg PO QPM 07/12/18 05/25/19 History gabapentin 300 mg PO TID 07/12/18 05/25/19 History hydroxyzine HCl 25 mg PO BID PRN 07/12/18 05/25/19 History magnesium oxide 400 mg PO QAM 07/12/18 05/25/19 History pantoprazole [Protonix] 40 mg PO BID 07/12/18 05/25/19 History riboflavin (vitamin B2) 400 mg PO QPM 07/12/18 05/25/19 History metoprolol succinate 37.5 mg PO BID 09/07/18 05/25/19 History duloxetine 60 mg PO QAM 10/16/18 05/25/19 History albuterol sulfate 2.5 mg INHALATION Q4H PRN 05/16/19 05/25/19 History budesonide 1 mg INHALATION BID 05/16/19 05/25/19 History cholecalciferol (vitamin D3) 2,000 unit PO QAM 05/16/19 05/25/19 History [Vitamin D3] oxcarbazepine 300 mg PO BID 05/16/19 05/25/19 History cefuroxime axetil 250 mg PO BID 7 Days #14 tab 05/22/19 05/25/19 Rx ondansetron HCl 4 mg PO UD 05/25/19 05/25/19 History tramadol 50 mg PO UD 05/25/19 05/25/19 History venlafaxine 150 mg PO QAM 05/25/19 05/25/19 History Allergies Allergy/AdvReac Type Severity Reaction Status Date / Time salicylates Allergy Severe SHORTNESS Verified 05/25/19 21:40 OF BREATH Iodinated Contrast- Oral and Allergy Intermediate EYES Verified 05/25/19 21:40 IV Dye SWELLING meperidine Allergy Intermediate ITCH Verified 05/25/19 21:40 morphine Allergy Intermediate ITCH Verified 05/25/19 21:40 aspirin Allergy Mild FACIAL Verified 05/25/19 21:40 SWELLING hydromorphone Allergy Mild RASH/ITCHIN Verified 05/25/19 21:40 G tramadol AdvReac Mild itch Verified 05/25/19 21:40 Past Med/Surg History Medical History Anxiety Asthma USES INH 1 X Q 2-3 MONTHS; LAST USED 1 MONTH AGO Chronic back pain Chronic headaches Chronic kidney disease FOLLOWS W/ DR. JASON Deep vein thrombosis LLE - COULD NOT RECALL DATE - REPORTS SHE WAS TREATED AT [facility] W/ BLOOD THINNERS Degenerative disc disease Depression GERD (gastroesophageal reflux disease) History of colon cancer 2012 S/P BOWEL RESECTION. Hyperlipidemia Hypertension Kidney stones Myocardial Infarction REPORTS [place] 4 MONTHS AGO --> [facility] -- CARDIAC CATH --> NO STENTS/ANGIOPLASTY PER PT REPORT -- POOR HISTORIAN? REPORTS SHE IS ON PLAVIX FOR HEART - DENIES STENTS - DENIES ARRHYTHMIA - FOLLOWS W/ DR. TORRES Osteoarthritis Humphrey historian Surgical History H/O hand surgery RIGHT History of appendectomy History of bowel resection History of cardiac cath 4 MONTHS AGO - [place] - DENIES STENTS/ANGIOPLASTY - [facility] - FOLLOWS W/ DR. TORRES History of cataract surgery History of kidney surgery POOR HISTORIAN -- COULD NOT RECALL SPECIFICS. History of tooth extraction History of total abdominal hysterectomy and bilateral salpingo-oophorectomy Hx of cholecystectomy Family History Other No pertinent family history in first degree relatives Social History Preferred Language: Chadian Communication Ability: Effective Seo Manager Required: No Beliefs That Will Affect Care: None marital status: Current Living Situation: Alone Feels Safe at Home: Yes Smoking Status: Never smoker Second Hand Exposure: Yes ; Hx Alcohol Use: No Hx Substance Use: No Review of Systems All systems reviewed & are unremarkable except as noted in HPI & below Physical Exam Vital Signs Vital Signs - 24 hr 05/25/19 21:09 05/25/19 21:12 05/25/19 21:17 Temperature 37.2 C Temperature Source Oral Sepsis Recent Fever Within 48 Hours No Sepsis Action Taken by Nursing No Action Required Pulse Rate 93 H 105 H Pulse Rate from SpO2 Sensor Respiratory Rate 18 18 27 H Respiratory Effort / Characteristics Non-Labored Respiratory Depth Normal Blood Pressure 162/111 H 162/111 H Blood Pressure Mean 128 128 Pulse Oximetry 97 Oxygen Delivery Method Nasal Cannula Oxygen Flow Rate 2 05/25/19 21:30 05/25/19 21:45 05/25/19 22:00 Temperature Temperature Source Sepsis Recent Fever Within 48 Hours Sepsis Action Taken by Nursing Pulse Rate 83 79 Pulse Rate from SpO2 Sensor 87 Respiratory Rate 18 21 19 Respiratory Effort / Characteristics Respiratory Depth Blood Pressure 153/89 H 156/91 H Blood Pressure Mean 110 112 Pulse Oximetry 96 96 Oxygen Delivery Method Nasal Cannula Oxygen Flow Rate 2 05/25/19 22:15 05/25/19 22:30 05/25/19 22:58 Temperature Temperature Source Sepsis Recent Fever Within 48 Hours Sepsis Action Taken by Nursing Pulse Rate 92 H 85 90 Pulse Rate from SpO2 Sensor 90 Respiratory Rate 23 17 19 Respiratory Effort / Characteristics Respiratory Depth Blood Pressure 165/96 H 155/92 H Blood Pressure Mean 119 113 Pulse Oximetry 99 Oxygen Delivery Method Oxygen Flow Rate 05/25/19 22:59 05/25/19 23:00 05/25/19 23:15 Temperature Temperature Source Sepsis Recent Fever Within 48 Hours Sepsis Action Taken by Nursing Pulse Rate 91 H 89 83 Pulse Rate from SpO2 Sensor 92 H 90 83 Respiratory Rate 19 19 16 Respiratory Effort / Characteristics Respiratory Depth Blood Pressure 155/89 H Blood Pressure Mean 111 Pulse Oximetry 98 96 99 Oxygen Delivery Method Oxygen Flow Rate 05/25/19 23:30 05/25/19 23:45 05/26/19 00:00 Temperature Temperature Source Sepsis Recent Fever Within 48 Hours Sepsis Action Taken by Nursing Pulse Rate 80 86 85 Pulse Rate from SpO2 Sensor 80 87 86 Respiratory Rate 16 12 20 Respiratory Effort / Characteristics Respiratory Depth Blood Pressure 165/99 H 162/91 H Blood Pressure Mean 121 114 Pulse Oximetry 97 98 98 Oxygen Delivery Method Oxygen Flow Rate 05/26/19 00:15 Temperature Temperature Source Sepsis Recent Fever Within 48 Hours Sepsis Action Taken by Nursing Pulse Rate 83 Pulse Rate from SpO2 Sensor 83 Respiratory Rate 17 Respiratory Effort / Characteristics Respiratory Depth Blood Pressure Blood Pressure Mean Pulse Oximetry 98 Oxygen Delivery Method Oxygen Flow Rate VITALS: Vitals are noted on the nurse's note and reviewed by myself. Vital signs stable. GENERAL: White female crying, in no acute distress, nondiaphoretic, well- developed well-nourished. SKIN: The skin was without rashes, erythema, edema, or bruising. There is no tenting of the skin. Capillary reflex less than 2 seconds. HEAD: Normocephalic atraumatic. EARS: External auditory canals clear, tympanic membranes pearly pierre without erythema or effusion bilaterally. EYES: Pupils equal round and reactive to light and accommodation. Conjunctivae without injection, sclerae without icterus. Extraocular movements intact. NOSE: Patent, turbinates without inflammation or discharge. MOUTH: Mucous membranes moist. Pharynx without erythema or exudate. Uvula midline. Airway patent. Tongue does not deviate. NECK: Supple without nuchal rigidity. No lymphadenopathy. No thyromegaly. Cervical spine is nontender. No JVD. HEART: Regular rate and rhythm LUNGS: Clear to auscultation bilaterally without wheezes, rales or rhonchi. No retractions or accessory muscle use. ABDOMEN: Positive bowel sounds x 4. Normal tympanic percussion. Soft, tender to palpation lower abdomen, without masses or organomegaly. Wylie sign negative. No guarding or rebound tenderness. No CVA tenderness MUSCULOSKELETAL: No muscle atrophy, erythema, or edema noted. NEURO: Patient was alert and oriented to person place and time. Normal sensation to light and sharp touch. No focal neurological deficits. Course Administered Medications Discontinued Medications Famotidine (Pepcid 20mg Iv Push) 20 mg IV ONE STA Stop: 05/26/19 00:12 Last Admin: 05/26/19 00:26 Dose: 20 mg Documented by: [id number] Sodium Chloride (Nss 1000ml) 500 mls @ 999 mls/hr IV .Q31M ONE Stop: 05/25/19 22:15 Last Infusion: 05/25/19 23:50 Dose: 0 mls/hr Documented by: [id number] Admin: 05/25/19 23:18 Dose: 999 mls/hr Documented by: [id number] Ceftriaxone Sodium (Rocephin) 2,000 mg in 70 mls @ 140 mls/hr IV NOW STA Stop: 05/25/19 22:14 Last Infusion: 05/25/19 23:50 Dose: 0 mls/hr Documented by: [id number] Admin: 05/25/19 23:18 Dose: 140 mls/hr Documented by: [id number] Metoprolol Tartrate (Lopressor) 2.5 mg IV NOW STA Stop: 05/26/19 00:10 Last Admin: 05/26/19 00:26 Dose: 2.5 mg Documented by: [id number] Medical Decision Making Medical Records Attestation: I reviewed the patient's medical records. Home Medications Current Medication List: was personally reviewed by me Laboratory Data Attestation: I reviewed the patient's lab results. Result diagrams: 05/25/19 21:11 05/25/19 21:11 Lab Results 05/25/19 05/25/19 05/25/19 Range/Units 21:11 21:11 21:11 WBC 7.74 (4.8-10.8) K/uL RBC 3.91 L (4.2-5.4) M/uL Hgb 11.1 L (12.0-16.0) g/dL Hct 36.5 L (37-47) % MCV 93.4 (80-100) fL MCH 28.4 (25-34) pg MCHC 30.4 L (32-36) g/dL RDW Std Deviation 47.2 H (36.4-46.3) fL RDW Coeff of Teresa 14.0 (11.5-14.5) % Plt Count 389 (130-400) K/uL MPV 9.9 (7.4-10.4) fL Immature Gran % (Auto) 1.0 % Neut % (Auto) 69.0 % Lymph % (Auto) 19.6 % [place] % (Auto) 8.8 % Eos % (Auto) 1.2 % Baso % (Auto) 0.4 % Immature Gran # (Auto) 0.08 H (0.00-0.02) K/uL Neut # (Auto) 5.34 (1.4-6.5) K/uL Lymph # (Auto) 1.52 (1.2-3.4) K/uL [place] # (Auto) 0.68 H (0.11-0.59) K/uL Eos # (Auto) 0.09 (0-0.5) K/uL Baso # (Auto) 0.03 (0-0.2) K/uL PT Cancelled INR Cancelled APTT Cancelled PTT Ratio Cancelled Sodium 143 (136-145) mmol/L Potassium 3.5 (3.5-5.1) mmol/L Chloride 103 (98-107) mmol/L Carbon Dioxide 33 H (21-32) mmol/L Anion Gap 8.0 (3-11) BUN 10 (7-18) mg/dl Creatinine 0.92 (0.6-1.2) mg/dl Est Cr Clr Drug Dosing 65.9 ml/min Est GFR ( Amer) 75.7 Est GFR (Non-Af Amer) 65.3 BUN/Creatinine Ratio 11.2 (10-20) Glucose 138 H (70-99) mg/dl Lactate (0.4-2.0) mmol/L Calcium 9.9 (8.5-10.1) mg/dl Magnesium 2.2 (1.8-2.4) mg/dl Total Bilirubin 0.4 (0.2-1) mg/dl AST 44 H (15-37) U/L ALT 55 (12-78) U/L Alkaline Phosphatase 150 H (45-117) U/L Troponin I < 0.015 (0-0.045) ng/ml Total Protein 8.1 (6.4-8.2) gm/dl Albumin 3.2 L (3.4-5.0) gm/dl Globulin 4.9 H (2.5-4.0) gm/dl Albumin/Globulin Ratio 0.7 L (0.9-2) Lipase 202 (73-393) U/L TSH 0.999 (0.300-4.500) uIu/ml Urine Color Urine Appearance (Clear) Urine pH (4.5-7.5) Ur Specific [place] (1.000-1.030) Urine Protein (Negative) Urine Glucose (UA) (Negative) Urine Ketones (Negative) Urine Blood (Negative) Urine Nitrite (Negative) Urine Bilirubin (Negative) Urine Urobilinogen (Negative) Ur Leukocyte Esterase (Negative) Urine WBC (Auto) (0-5) /hpf Urine RBC (Auto) (0-4) /hpf U Hyaline Cast (Auto) (0-5) /lpf U Epithel Cells (Auto) (0-5) /lpf Urine Bacteria (Auto) (Negative) Ur Renal Epithelial Cell (0-5) /lpf 05/25/19 05/25/19 05/25/19 Range/Units 21:11 22:17 22:17 WBC (4.8-10.8) K/uL RBC (4.2-5.4) M/uL Hgb (12.0-16.0) g/dL Hct (37-47) % MCV (80-100) fL MCH (25-34) pg MCHC (32-36) g/dL RDW Std Deviation (36.4-46.3) fL RDW Coeff of Teresa (11.5-14.5) % Plt Count (130-400) K/uL MPV (7.4-10.4) fL Immature Gran % (Auto) % Neut % (Auto) % Lymph % (Auto) % [place] % (Auto) % Eos % (Auto) % Baso % (Auto) % Immature Gran # (Auto) (0.00-0.02) K/uL Neut # (Auto) (1.4-6.5) K/uL Lymph # (Auto) (1.2-3.4) K/uL [place] # (Auto) (0.11-0.59) K/uL Eos # (Auto) (0-0.5) K/uL Baso # (Auto) (0-0.2) K/uL PT 10.6 INR 1.0 APTT 22.6 PTT Ratio 0.8 Sodium (136-145) mmol/L Potassium (3.5-5.1) mmol/L Chloride (98-107) mmol/L Carbon Dioxide (21-32) mmol/L Anion Gap (3-11) BUN (7-18) mg/dl Creatinine (0.6-1.2) mg/dl Est Cr Clr Drug Dosing ml/min Est GFR ( Amer) Est GFR (Non-Af Amer) BUN/Creatinine Ratio (10-20) Glucose (70-99) mg/dl Lactate 1.0 (0.4-2.0) mmol/L Calcium (8.5-10.1) mg/dl Magnesium (1.8-2.4) mg/dl Total Bilirubin (0.2-1) mg/dl AST (15-37) U/L ALT (12-78) U/L Alkaline Phosphatase (45-117) U/L Troponin I (0-0.045) ng/ml Total Protein (6.4-8.2) gm/dl Albumin (3.4-5.0) gm/dl Globulin (2.5-4.0) gm/dl Albumin/Globulin Ratio (0.9-2) Lipase (73-393) U/L TSH (0.300-4.500) uIu/ml Urine Color Yellow Urine Appearance Cloudy A (Clear) Urine pH 6.5 (4.5-7.5) Ur Specific [place] 1.019 (1.000-1.030) Urine Protein 3+ H (Negative) Urine Glucose (UA) Negative (Negative) Urine Ketones 2+ H (Negative) Urine Blood Trace H (Negative) Urine Nitrite Negative (Negative) Urine Bilirubin Negative (Negative) Urine Urobilinogen Negative (Negative) Ur Leukocyte Esterase 1+ H (Negative) Urine WBC (Auto) >30 H (0-5) /hpf Urine RBC (Auto) 5-10 H (0-4) /hpf U Hyaline Cast (Auto) 10-30 H (0-5) /lpf U Epithel Cells (Auto) >30 H (0-5) /lpf Urine Bacteria (Auto) Negative (Negative) Ur Renal Epithelial Cell 0-5 (0-5) /lpf Imaging Data Attestation: I personally reviewed and interpreted this imaging study as follows: MDM Narrative Prior records/ancillary studies reviewed. Triage Nursing notes reviewed. Additional history obtained from EMS. The patient's history was concerning for abdominal pain. Differential diagnosis: Etiologies such as appendicitis, diverticulitis, PUD, biliary pathology, UTI, pancreatitis, obstruction, mesenteric ischemia, aortic pathology, infections, inflammatory bowel disease, renal colic, as well as others were entertained. Physical examination findings: As above. ER treatment provided: IV fluids, Rocephin, Zofran On reassessment the patient felt better. Diagnostics interpreted by me: ECG: Ordered for abdominal pain and vomiting EKG: Poor baseline, left axis deviation, Q waves in inferior leads, no acute ST- T wave changes, rate of 84. Impression left axis deviation with Q waves in inferior leads normal sinus rhythm interpreted by myself I think arrhythmia is unlikely. EKG shows normal sinus rhythm with no interval abnormalities such as QT prolongation or WPW. There are no findings to suggest Brugada syndrome. Cardiac monitoring in the emergency department reveals no tachycardic or bradycardic dysrhythmia. Hypertrophic cardiomyopathy was considered but there are no clear historical elements pointing toward this. EKG is not suggestive. The QRS voltage is not extremely large and there are no suggestive Q waves. The labs revealed urine concerning for infection and sent for culture. No leukocytosis Imaging studies: CT abd pelvis wo con CT DOSE: 1289.45 mGy.cm HISTORY: Pain severe lower abd pain and left flank pain TECHNIQUE: Multiaxial CT images of the abdomen and pelvis were performed without contrast. A dose lowering technique was utilized adhering to the principles of ALARA. COMPARISON STUDY: 05/16/2019 FINDINGS: Small bilateral pleural effusions. Left basilar atelectatic change. Hiatal hernia. Mild stable splenomegaly. Prior cholecystectomy. Stable left renal cysts. Cortical scarring of the right kidney with at least one nonobstructing calcification. Multiple lower pole left renal calcifications unchanged from the prior exam. No evidence for hydronephrosis. Bladder is relatively collapsed. Small ventral hernia containing a small nonobstructing loop of small bowel. This is unchanged. No free fluid within the abdomen or pelvis. IMPRESSION: 1. Interval development of small bilateral pleural effusions and left basilar atelectasis. 2. Hiatal hernia. 3. Small ventral hernia. 4. The abdomen and pelvis is otherwise unchanged from the prior study with no acute process identified. The above report was generated using voice recognition software. It may contain grammatical, syntax or spelling errors. Electronically signed by: Francisco Javier Marquez M.D. 05/25/2019 11:04 PM XR chest 1V portable CLINICAL HISTORY: Sepsis dyspnea COMPARISON STUDY: 05/21/2019 FINDINGS: The bones soft tissues and hemidiaphragms are normal. The cardiomediastinal silhouette is normal. The lungs are clear. The pulmonary vasculature is normal. IMPRESSION: Negative chest. The above report was generated using voice recognition software. It may contain grammatical, syntax or spelling errors. Electronically signed by: Francisco Javier Marquez M.D. 05/25/2019 10:04 PM Consultation: A consultation was placed with the hospitalist, Dr. John. The case was discussed and diagnostics were reviewed. The patient was evaluated in the ER for further treatment. Exam and history seem consistent with pyelonephritis who has failed outpatient treatment. Patient continues to vomit. Medicine was consulted. She was given IV antibiotics. Patient is agreeable. By the evaluation outlined above emergent etiologies such as appendicitis, diverticulitis, PUD, biliary pathology, pancreatitis, obstruction, mesenteric ischemia, aortic pathology, inflammatory bowel disease, renal colic, as well as others were deemed relatively unlikely. The pt informed about the findings as listed above. All questions were answered and pleased with the treatment. Case reviewed with my attending The chart was completed utilizing [employer] Speech voice recognition software. Grammatical errors, random word insertions, pronoun errors, and incomplete sentences are an occassional consequence of this system due to software limitations, ambient noise, and hardware issues. Any formal questions or concerns about the content, text, or information contained within the body of this dictation should be directly addressed to the physician bus assistant for clarification. Impression & Plan Acute pyelonephritis, Vomiting, Failure of outpatient treatment Discharge Plan Visit Data Chief Complaint: Nausea Stated Complaint: nausea, kidney infection ED Provider: Tamia Dumont ED Midlevel Provider: Barb Trejo Discharge Problem: Acute pyelonephritis, Vomiting, Failure of outpatient treatment Patient Disposition: Being Evaluated by Hospitalist Condition: Fair Forms Stand Alone Forms: My [facility] [employer] Prescriptions Prescriptions: No Action atorvastatin [Lipitor] 40 mg Tablet 40 mg PO QPM RF: 0 clopidogrel [Plavix] 75 mg Tablet 75 mg PO QPM RF: 0 magnesium oxide 400 mg (241.3 mg magnesium) Tablet 400 mg PO QAM RF: 0 pantoprazole [Protonix] 40 mg Tablet,Delayed Release (Dr/Ec) 40 mg PO BID RF: 0 gabapentin 300 mg Capsule 300 mg PO TID RF: 0 hydroxyzine HCl 25 mg Tablet 25 mg PO BID PRN (Reason: Anxiety) RF: 0 riboflavin (vitamin B2) 400 mg Tablet 400 mg PO QPM RF: 0 metoprolol succinate 25 mg tablet extended release 24 hr 37.5 mg PO BID RF: 0 duloxetine 60 mg Capsule,Delayed Release(Dr/Ec) 60 mg PO QAM RF: 0 oxcarbazepine 300 mg tablet 300 mg PO BID RF: 0 albuterol sulfate 2.5 mg /3 mL (0.083 %) Solution For Nebulization 2.5 mg inhalation Q4H PRN (Reason: Shortness Of Breath Or Wheezing) RF: 0 budesonide 1 mg/2 mL suspension for nebulization 1 mg inhalation BID RF: 0 cholecalciferol (vitamin D3) [Vitamin D3] 2,000 unit Capsule 2,000 unit PO QAM RF: 0 cefuroxime axetil 250 mg tablet 250 mg PO BID 7 Days Qty: 14 RF: 0 ondansetron HCl 4 mg tablet 4 mg PO UD RF: 0 venlafaxine 150 mg Capsule,Extended Release 24hr 150 mg PO QAM RF: 0 tramadol 50 mg tablet 50 mg PO UD RF: 0 Referrals Referrals: Toño Naidu MD [Primary Care Provider] -
--- NOTE | 2019-05-25 23:05 | CT Scan Report ---
CT abd pelvis wo con CT DOSE: 1289.45 mGy.cm HISTORY: Pain severe lower abd pain and left flank pain TECHNIQUE: Multiaxial CT images of the abdomen and pelvis were performed without contrast. A dose lo wering technique was utilized adhering to the principles of ALARA. COMPARISON STUDY: 05/16/2019 FINDINGS: Small bilateral pleural effusions. Left basilar atelectatic change. Hiatal hernia. Mild stable splenomegaly. Prior cholecystectomy. Stable left renal cysts. Cortical sca rring of the right kidney with at least one nonobstructing calcification. Multiple lower pole left re nal calcifications unchanged from the prior exam. No evidence for hydronephrosis. Bladder is relatively collapsed. Small ventral hernia containing a sm all nonobstructing loop of small bowel. This is unchanged. No free fluid within the abdomen or pelvis . IMPRESSION: 1. Interval development of small bilateral pleural effusions and left basilar atelectasis. 2. Hiatal hernia. 3. Small ventral hernia. 4. The abdomen and pelvis is otherwise unchanged from the prior study with no acute process identifie d. The above report was generated using voice recognition software. It may contain grammatical, syntax or spelling errors. Electronically signed by: Francisco Javier Marquez M.D. 05/25/2019 11:04 PM
[2019-05-26] MEDS ORDERED: METOPROLOL TARTRATE 1 MG/ML VIAL IV STA (00:09)
--- NOTE | 2019-05-26 00:10 | History & Physical Report ---
Date of Service May 26, 2019 Assessment & Plan (1) Abdominal pain in female: Multifactorial : Acute gastroenteritis rule out C. difficile ? Recurrent UTI, no sepsis Hypertension, elevated secondary to illness chronic resp failure on home O2, COPD/asthma as per records, home status at [facility] colon cancer sp surgery (2010), chronic anemia, hemoglobin at baseline Hyperglycemia, possible prediabetes, hemoglobin A1c of 6.1 last February 2018 ambulatory dysfunction Medical telemetry for elevated blood pressure Stool C. difficile Follow urine cultures, IV Cefepime for now Facilitate home beta-velma, may need parenteral administration if patient unable to take oral medication Update hemoglobin A1c PT OT eval DVT prophylaxis. Lovenox subcu Full code History of Present Illness Chief Complaint: Nausea, vomiting, L flank pain Primary Care Provider: Toño Naidu MD History obtained from patient and records. Medical history significant for recurrent syncope, hx postural hypotension as per records, chronic resp failure on home O2, COPD/asthma as per records, colon cancer sp surgery (2010), chronic anemia (baseline hemoglobin of 10-11), depression, ambulatory dysfunction, hx L renal cyst. OHS on CPAP as per records. Recent confinement May 16 11/23/2018 for acute pyelonephritis secondary to E. coli. Patient discharged on oral cephalosporin course. Yesterday, patient noted nausea, emesis symptoms associated with achy left flank pain. No hematuria, no fever, no chills. Watery diarrhea symptoms. Substernal pain from vomiting as per patient. No unusual shortness of breath. At the ER, patient received IV Ceftriaxone for possible UTI. 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 Allergies Allergy/AdvReac Type Severity Reaction Status Date / Time salicylates Allergy Severe SHORTNESS Verified 05/25/19 21:40 OF BREATH Iodinated Contrast- Oral and Allergy Intermediate EYES Verified 05/25/19 21:40 IV Dye SWELLING meperidine Allergy Intermediate ITCH Verified 05/25/19 21:40 morphine Allergy Intermediate ITCH Verified 05/25/19 21:40 aspirin Allergy Mild FACIAL Verified 05/25/19 21:40 SWELLING hydromorphone Allergy Mild RASH/ITCHIN Verified 05/25/19 21:40 G tramadol AdvReac Mild itch Verified 05/25/19 21:40 Home Medications Home Medications Medication Instructions Recorded Confirmed Type atorvastatin [Lipitor] 40 mg PO QPM 07/12/18 05/25/19 History clopidogrel [Plavix] 75 mg PO QPM 07/12/18 05/25/19 History gabapentin 300 mg PO TID 07/12/18 05/25/19 History hydroxyzine HCl 25 mg PO BID PRN 07/12/18 05/25/19 History magnesium oxide 400 mg PO QAM 07/12/18 05/25/19 History pantoprazole [Protonix] 40 mg PO BID 07/12/18 05/25/19 History riboflavin (vitamin B2) 400 mg PO QPM 07/12/18 05/25/19 History metoprolol succinate 37.5 mg PO BID 09/07/18 05/25/19 History duloxetine 60 mg PO QAM 10/16/18 05/25/19 History albuterol sulfate 2.5 mg INHALATION Q4H PRN 05/16/19 05/25/19 History budesonide 1 mg INHALATION BID 05/16/19 05/25/19 History cholecalciferol (vitamin D3) 2,000 unit PO QAM 05/16/19 05/25/19 History [Vitamin D3] oxcarbazepine 300 mg PO BID 05/16/19 05/25/19 History cefuroxime axetil 250 mg PO BID 7 Days #14 tab 05/22/19 05/25/19 Rx ondansetron HCl 4 mg PO UD 05/25/19 05/25/19 History tramadol 50 mg PO UD 05/25/19 05/25/19 History venlafaxine 150 mg PO QAM 05/25/19 05/25/19 History Past Med/Surg History Medical History Anxiety Asthma USES INH 1 X Q 2-3 MONTHS; LAST USED 1 MONTH AGO Chronic back pain Chronic headaches Chronic kidney disease FOLLOWS W/ DR. JASON Deep vein thrombosis LLE - COULD NOT RECALL DATE - REPORTS SHE WAS TREATED AT [facility] W/ BLOOD THINNERS Degenerative disc disease Depression GERD (gastroesophageal reflux disease) History of colon cancer 2013 S/P BOWEL RESECTION. Hyperlipidemia Hypertension Kidney stones Myocardial Infarction REPORTS DE 4 MONTHS AGO --> [facility] -- CARDIAC CATH --> NO STENTS/ANGIOPLASTY PER PT REPORT -- POOR HISTORIAN? REPORTS SHE IS ON PLAVIX FOR HEART - DENIES STENTS - DENIES ARRHYTHMIA - FOLLOWS W/ DR. TORRES Osteoarthritis Poor historian Surgical History H/O hand surgery RIGHT History of appendectomy History of bowel resection History of cardiac cath 4 MONTHS AGO - [place] - DENIES STENTS/ANGIOPLASTY - [facility] - FOLLOWS W/ DR. TORRES History of cataract surgery History of kidney surgery POOR HISTORIAN -- COULD NOT RECALL SPECIFICS. History of tooth extraction History of total abdominal hysterectomy and bilateral salpingo-oophorectomy Hx of cholecystectomy Family History Other No pertinent family history in first degree relatives Social History Preferred Language: Egyptian Communication Ability: Effective Stained Glass Installer Required: No Beliefs That Will Affect Care: None marital status: Current Living Situation: Alone Other Information That Helps Us Care for You: No Feels Safe at Home: Yes Safety Concerns: Feels Safe At This Time Smoking Status: Never smoker Second Hand Exposure: Yes ; Hx Alcohol Use: No Hx Substance Use: No Review of Systems Review of Systems: As per HPI, all 10 systems reviewed, all other ROS negative Physical Exam Physical Exam: GENERAL: Slightly uncomfortable, anxious, obese, chronic head tremors, no respiratory distress SKIN: Pallor , warm HEENT: pale palpebral conjunctivae, no ptosis, dry buccal mucosa NECK : Supple, short, no tenderness CHEST : Decreased breath sounds, no tenderness HEART : RRR, no obvious murmurs ABDOMEN: Some distention, nontender EXTREMITIES : Bilateral LE swelling, no LE tenderness, no other conspicuous deformities noted NEUROLOGIC : Coherent, no facial asymmetry, no other gross focality except for chronic head tremors Results & Data Vital Signs (Past 12 Hours) Vital Signs Temp Pulse Resp BP Pulse Ox 05/25/19 22:30 85 17 165/96 H 05/25/19 22:15 92 H 23 05/25/19 22:00 19 156/91 H 96 05/25/19 21:45 79 21 96 05/25/19 21:30 83 18 153/89 H 08/16/19 21:17 105 H 27 H 05/25/19 21:12 18 162/111 H 05/25/19 21:09 37.2 C 93 H 18 162/111 H 97 Laboratory Results Laboratory Results WBC 7.74 K/uL (4.8-10.8) 05/25/19 21:11 RBC 3.91 M/uL (4.2-5.4) L 05/25/19 21:11 Hgb 11.1 g/dL (12.0-16.0) L 05/25/19 21:11 Hct 36.5 % (37-47) L 05/25/19 21:11 MCV 93.4 fL (80-100) 05/25/19 21:11 MCH 28.4 pg (25-34) 05/25/19 21:11 MCHC 30.4 g/dL (32-36) L 05/25/19 21:11 RDW Std Deviation 47.2 fL (36.4-46.3) H 05/25/19 21:11 RDW Coeff of Teresa 14.0 % (11.5-14.5) 05/25/19 21:11 Plt Count 389 K/uL (130-400) 05/25/19 21:11 MPV 9.9 fL (7.4-10.4) 05/25/19 21:11 Immature Gran % (Auto) 1.0 % 05/25/19 21:11 Neut % (Auto) 69.0 % 05/25/19 21:11 Lymph % (Auto) 19.6 % 05/25/19 21:11 Teller % (Auto) 8.8 % 05/25/19 21:11 Eos % (Auto) 1.2 % 05/25/19 21:11 Baso % (Auto) 0.4 % 05/25/19 21:11 Immature Gran # (Auto) 0.08 K/uL (0.00-0.02) H 05/25/19 21:11 Neut # (Auto) 5.34 K/uL (1.4-6.5) 05/25/19 21:11 Lymph # (Auto) 1.52 K/uL (1.2-3.4) 05/25/19 21:11 Teller # (Auto) 0.68 K/uL (0.11-0.59) H 05/25/19 21:11 Eos # (Auto) 0.09 K/uL (0-0.5) 05/25/19 21:11 Baso # (Auto) 0.03 K/uL (0-0.2) 05/25/19 21:11 PT 10.6 Seconds (9.0-12.0) 05/25/19 22:17 INR 1.0 (0.9-1.1) 05/25/19 22:17 APTT 22.6 Seconds (21.0-31.0) 05/25/19 22:17 PTT Ratio 0.8 05/25/19 22:17 Sodium 143 mmol/L (136-145) 05/25/19 21:11 Potassium 3.5 mmol/L (3.5-5.1) 05/25/19 21:11 Chloride 103 mmol/L (98-107) 05/25/19 21:11 Carbon Dioxide 33 mmol/L (21-32) H 05/25/19 21:11 Anion Gap 8.0 (3-11) 05/25/19 21:11 BUN 10 mg/dl (7-18) 05/25/19 21:11 Creatinine 0.92 mg/dl (0.6-1.2) 05/25/19 21:11 Est Cr Clr Drug Dosing 65.9 ml/min 05/25/19 21:11 Est GFR ( Amer) 75.7 05/25/19 21:11 Est GFR (Non-Af Amer) 65.3 05/25/19 21:11 BUN/Creatinine Ratio 11.2 (10-20) 05/25/19 21:11 Glucose 138 mg/dl (70-99) H 05/25/19 21:11 Lactate 1.0 mmol/L (0.4-2.0) 05/25/19 22:17 Calcium 9.9 mg/dl (8.5-10.1) 05/25/19 21:11 Magnesium 2.2 mg/dl (1.8-2.4) 05/25/19 21:11 Total Bilirubin 0.4 mg/dl (0.2-1) 05/25/19 21:11 AST 44 U/L (15-37) H 05/25/19 21:11 ALT 55 U/L (12-78) 05/25/19 21:11 Alkaline Phosphatase 150 U/L (45-117) H 05/25/19 21:11 Troponin I < 0.015 ng/ml (0-0.045) 05/25/19 21:11 Total Protein 8.1 gm/dl (6.4-8.2) 05/25/19 21:11 Albumin 3.2 gm/dl (3.4-5.0) L 05/25/19 21:11 Globulin 4.9 gm/dl (2.5-4.0) H 05/25/19 21:11 Albumin/Globulin Ratio 0.7 (0.9-2) L 05/25/19 21:11 Lipase 202 U/L (73-393) 05/25/19 21:11 Urine Color Yellow 05/25/19 21:11 Urine Appearance Cloudy (Clear) A 05/25/19 21:11 Urine pH 6.5 (4.5-7.5) 05/25/19 21:11 Ur Specific [place] 1.019 (1.000-1.030) 05/25/19 21:11 Urine Protein 3+ (Negative) H 05/25/19 21:11 Urine Glucose (UA) Negative (Negative) 05/25/19 21:11 Urine Ketones 2+ (Negative) H 05/25/19 21:11 Urine Blood Trace (Negative) H 05/25/19 21:11 Urine Nitrite Negative (Negative) 05/25/19 21:11 Urine Bilirubin Negative (Negative) 05/25/19 21:11 Urine Urobilinogen Negative (Negative) 05/25/19 21:11 Ur Leukocyte Esterase 1+ (Negative) H 05/25/19 21:11 Urine WBC (Auto) >30 /hpf (0-5) H 05/25/19 21:11 Urine RBC (Auto) 5-10 /hpf (0-4) H 05/25/19 21:11 U Hyaline Cast (Auto) 10-30 /lpf (0-5) H 05/25/19 21:11 U Epithel Cells (Auto) >30 /lpf (0-5) H 05/25/19 21:11 Urine Bacteria (Auto) Negative (Negative) 05/25/19 21:11 Ur Renal Epithelial Cell 0-5 /lpf (0-5) 05/25/19 21:11 Diagnostic Findings Chest x-ray negative pathology EKG as per my interpretation : Rate 85, NSR, LAD, LAFB, LVH, T wave flattening inferior leads CT abdomen pelvis: 1. Interval development of small bilateral pleural effusions and left basilar atelectasis. 2. Hiatal hernia. 3. Small ventral hernia. 4. The abdomen and pelvis is otherwise unchanged from the prior study with no acute process identified.
[2019-05-26] MEDS ORDERED: FAMOTIDINE 20MG/5ML IV PUSH IV STA (00:11)
--- NOTE | 2019-05-26 00:35 | Emergency Department Note ---
ED Visit Note Patient seen and evaluated here after discussion with physician prosthetic assistant. Patient reports no prior history of recurrent UTIs, pyelonephritis, kidney stone. Patient complaining of persistent nausea and pain. Patient is aware of all results and plan for additional inpatient management and evaluation. .
[2019-05-26] MEDS ORDERED: ACETAMINOPHEN 325 MG TAB PO PRN (01:43)
[2019-05-26] MEDS ORDERED: PROMETHAZINE HCL 12.5 MG in SODIUM CHLORIDE 0.9% 50 ML IV PRN (01:43)
[2019-05-26] MEDS ORDERED: NITROGLYCERIN SL 0.4 MG/TAB TAB SL PRN (01:43)
[2019-05-26] MEDS ORDERED: LACTATED RINGER'S 1,000 ML IV ONE (01:43)
[2019-05-26] MEDS ORDERED: CEFEPIME 2,000 MG in SYRINGE 7.5 ML IV STA (02:00)
[2019-05-26] MEDS ORDERED: CEFEPIME CONSULT ACTIVE PRN (02:24)
[2019-05-26 06:04] LABS: Basophils # (auto) 0.02 K/uL (0-0.2); Basophils % (auto) 0.3 %; Eosinophils # (auto) 0.09 K/uL (0-0.5); Eosinophils % (auto) 1.2 %; Hematocrit (blood only) 33.3 % (37-47); Hemoglobin 10.4 g/dL (12.0-16.0); Immature Granulocytes # (auto) 0.07 K/uL (0.00-0.02); Immature Granulocytes % (auto) 0.9 %; Lymphocytes # (auto) 1.59 K/uL (1.2-3.4); Lymphocytes % (auto) 21.3 %; Mean Corpuscular Hgb Conc 31.2 g/dL (32-36); Mean Corpuscular Volume 93.5 fL (80-100); Mean Platelet Volume 8.9 fL (7.4-10.4); Monocytes # (auto) 0.66 K/uL (0.11-0.59); Monocytes % (auto) 8.9 %; Neutrophils # (auto) 5.02 K/uL (1.4-6.5); Neutrophils % (auto) 67.4 %; Platelet Count 317 K/uL (130-400); RDW Coefficient of Variation 13.8 % (11.5-14.5); RDW Standard Deviation 46.8 fL (36.4-46.3); Red Blood Count 3.56 M/uL (4.2-5.4); White Blood Count 7.45 K/uL (4.8-10.8)
[2019-05-26 06:15] LABS: Partial Thromboplastin Ratio 0.9; Partial Thromboplastin Time 25.4 Seconds (21.0-31.0)
[2019-05-26 06:39] LABS: Alanine Aminotransferase 47 U/L (12-78); Albumin Level 2.7 gm/dl (3.4-5.0); Aspartate Aminotransferase 37 U/L (15-37); BUN Creatinine Ratio 13.5 (10-20); Bilirubin Direct < 0.1 mg/dl (0-0.2); Blood Urea Nitrogen 11 mg/dl (7-18); Calcium 8.9 mg/dl (8.5-10.1); Carbon Dioxide 33 mmol/L (21-32); Chloride 105 mmol/L (98-107); Creatinine Clr Calc Pharmacy 71.9 ml/min; Est GFR (African American) 85.8; Glucose 112 mg/dl (70-99); Potassium 3.6 mmol/L (3.5-5.1); Sodium 144 mmol/L (136-145)
[2019-05-26 06:42] LABS: Alkaline Phosphatase 142 U/L (45-117); Bilirubin,Total 0.4 mg/dl (0.2-1); Total Protein 6.9 gm/dl (6.4-8.2)
[2019-05-26 06:58] LABS: Estimated Average Glucose 146 mg/dl; Hemoglobin A1C 6.7 % (4.5-5.6)
[2019-05-26] MEDS ORDERED: KETOROLAC TROMETHAMINE 15 MG/ML VIAL IV ONE (08:05)
[2019-05-26] MEDS ORDERED: LACTATED RINGER'S 1,000 ML IV SCH (08:15)
[2019-05-26] MEDS: BUDESONIDE 90 MCG INH INH SCH ×2 (08:28→20:48)
[2019-05-26] MEDS: ENOXAPARIN INJ 40 MG/0.4 ML SYR SQ SCH (08:28)
[2019-05-26] MEDS: OXcarbazepine 150 MG TABLET PO SCH ×2 (10:52→20:48)
[2019-05-26] MEDS: METOPROLOL SUCC 25MG EXT REL TAB PO SCH ×2 (10:52→20:43)
[2019-05-26] MEDS: PANTOprazole 40 MG TAB PO SCH ×2 (10:53→20:47)
[2019-05-26] MEDS: GABAPENTIN 300 MG CAP PO SCH ×3 (10:54→20:43)
[2019-05-26] MEDS: VENLAFAXINE HCL XR 150 MG CAPXR PO SCH (10:54)
[2019-05-26] MEDS: DULOXETINE HCL 60 MG CAP PO SCH (10:55)
--- NOTE | 2019-05-26 11:54 | Hospitalist Progress Note ---
Date of Service May 26, 2019 Assessment & Plan (1) Abdominal pain in female: history of left pyelonephritis Left flank pain Abdominal pain Hiatal hernia, small ventral hernia complicated urinary tract infection suspected -recently discharge on 05/23/19 after hospitalization for left flank pain associated with chills and shortness of breath and treated for left pyelonephritis with cefepime and during that hospitalization with urinary tract infection Escherichia coli -patient's discharge medication on 05/23/19 as cefuroxime axetil 250 mg 250 mg PO BID 7 Days -patient then returns to ER on 05/25/19 complaining of abdominal pain, fever, chills and vomiting and unable to take oral medications -CT imaging on 05/25/19 generally unrevealing of acute process: Hiatal hernia. Mild stable splenomegaly. Prior cholecystectomy. Stable left renal cysts. Cortical scarring of the right kidney with at least one nonobstructing calcification. Multiple lower pole left renal calcifications unchanged from the prior exam. No evidence for hydronephrosis. Bladder is relatively collapsed. Small ventral hernia containing a small nonobstructing loop of small bowel. This is unchanged. No free fluid within the abdomen or pelvis. -patient admitted by nocturnalist in community associate hours of 05/24/19 and started empirically on cefepime in case of a recurrent complicated urinary tract infection -however, initial urine analysis without bacteria, urine culture results negative and patient does not report of dysuria symptoms -patient's left flank pain may be residual inflammation from left pyelonephritis versus a pyelonephritis that has not been completely treated -follow blood cultures and continue cefepime empirically for now -have increased IV fluids to help with furthering kidney filtration and in case there are any obstructing calculi not seen by imaging - C.difficile test negative on 05/26/19, stool cultures are pending Chronic respiratory failure with hypoxia COPD, asthma and sleep apnea -recent discharge on 2 L/min oxygen via nasal cannula at rest and 3 L with ambulation and oxygen requirements attributed to multiple comorbid conditions including COPD, asthma and sleep apnea -pulmicort Obesity due to excessive calories with with BMI 45 to 49.9 in adult (BMI is 46.1) -encourage ambulation Hypertension -initial elevated blood pressures attribute to illness -continue home dose metoprolol, atorvastatin, clopidogrel Type 2 diabetes mellitus without nursing home current of insulin -HbA1c 6.7 on this admission, appears to be new diagnosis of diabetes -diabetic diet -can consider outpatient metformin when abdominal/flank symptoms resolve chronic anemia -hemoglobin at baseline history of mood disorder; anxiety, depression -continue home medications of duloxetine, venlafaxine, oxcarbazepine, gabapentin History of Colon cancer with surgery DVT prophylaxis. Lovenox subcu Full code Subjective On my exam this morning, patient noted of have abdominal pain but no tenderness on palpation. she did have left flank pain and there appeared to be tenderness on palpation of left flank near kidney area. patient denies dysuria. she is on nasal cannula but does not acutely feel short of breath. no chest pain. no palpitations. patient encouraged to ambulate. patient encouraged to take oral medications. no vomiting at this time so far Physical Exam Constitutional: + obese Eyes: PERRL, conjunctivae normal, anicteric sclerae EOM intact bilaterally ENMT: external ear and nose normal, oropharynx normal Neck: normal visual inspection and trachea midline Respiratory: normal respiratory effort, lungs clear to auscultation Cardiovascular: Rate/Rhythm: regular rate and regular rhythm Gastrointestinal (Abdomen): normal bowel sounds, soft, nontender, no hepatosplenomegaly Musculoskeletal: left flank pain and palpation Neurologic: PERRL, EOMI, accommodation nl, no face palsy, no dysarthria Psychiatric: Orientation: alert, oriented x 3 and cooperative Results & Data Vital Signs (Past 12 Hours) Vital Signs Temp Pulse Pulse Resp BP BP BP 05/26/19 11:30 36.9 C 85 134/85 05/26/19 10:50 97 H 133/82 05/26/19 07:32 36.8 C 86 18 130/76 05/26/19 04:00 36.8 C 77 20 174/94 H 05/26/19 01:45 90 05/26/19 01:30 36.8 C 98 H 18 161/101 H 05/26/19 01:17 77 18 135/96 05/26/19 01:00 77 18 135/96 05/26/19 00:45 74 20 05/26/19 00:30 84 19 165/84 H 05/26/19 00:15 83 17 05/26/19 00:00 85 20 162/91 H Pulse Ox 05/26/19 11:30 95 05/26/19 10:50 05/26/19 07:32 95 05/26/19 04:00 100 05/26/19 01:45 05/26/19 01:30 97 05/26/19 01:17 98 05/26/19 01:00 98 05/26/19 00:45 99 05/26/19 00:30 99 05/26/19 00:15 98 05/26/19 00:00 98
[2019-05-26] MEDS ORDERED: ACETAMINOPHEN 1,000 MG/100 ML VIAL IV PRN (12:23)
[2019-05-26] MEDS: CEFEPIME 1,000 MG in SYRINGE 0 ML IV SCH (13:27)
[2019-05-26] MEDS: CLOPIDOGREL BISULFATE 75 MG TAB PO SCH (20:46)
[2019-05-26] MEDS: ATORVASTATIN 40 MG TAB PO SCH (20:46)
[2019-05-26] MEDS ORDERED: NON-FORMULARY MEDICATION (Riboflavin (Vitamin B2) 400 MG) PO SCH (21:00)
[2019-05-27] MEDS: CEFEPIME 1,000 MG in SYRINGE 0 ML IV SCH ×2 (00:45→11:57)
[2019-05-27] MEDS: TRAMADOL HCL 50 MG TABLET PO PRN ×2 (02:29→18:14)
[2019-05-27 06:39] LABS: Basophils # (auto) 0.04 K/uL (0-0.2); Basophils % (auto) 0.6 %; Eosinophils # (auto) 0.24 K/uL (0-0.5); Eosinophils % (auto) 3.8 %; Hematocrit (blood only) 34.1 % (37-47); Hemoglobin 10.3 g/dL (12.0-16.0); Immature Granulocytes # (auto) 0.06 K/uL (0.00-0.02); Lymphocytes # (auto) 1.25 K/uL (1.2-3.4); Mean Corpuscular Hgb Conc 30.2 g/dL (32-36); Mean Corpuscular Volume 94.2 fL (80-100); Mean Platelet Volume 9.1 fL (7.4-10.4); Monocytes # (auto) 0.68 K/uL (0.11-0.59); Monocytes % (auto) 10.9 %; Neutrophils # (auto) 3.99 K/uL (1.4-6.5); Neutrophils % (auto) 63.7 %; Platelet Count 277 K/uL (130-400); RDW Coefficient of Variation 13.9 % (11.5-14.5); RDW Standard Deviation 47.5 fL (36.4-46.3); Red Blood Count 3.62 M/uL (4.2-5.4); White Blood Count 6.26 K/uL (4.8-10.8)
[2019-05-27 07:06] LABS: Calcium 9.1 mg/dl (8.5-10.1); Creatinine Clr Calc Pharmacy 63.8 ml/min; Est GFR (African American) 73.8; Est GFR (Non-African American) 63.7; Potassium 3.3 mmol/L (3.5-5.1)
[2019-05-27] MEDS ORDERED: POTASSIUM CHLORIDE 20 MEQ/15 ML UDC PO STA (07:23)
[2019-05-27] MEDS ORDERED: POTASSIUM CHLORIDE / WTR 10 MEQ/100 ML PLCT IV ONE (08:00)
[2019-05-27] MEDS: METOPROLOL SUCC 25MG EXT REL TAB PO SCH ×2 (08:02→20:16)
[2019-05-27] MEDS: GABAPENTIN 300 MG CAP PO SCH ×3 (08:02→20:17)
[2019-05-27] MEDS: PANTOprazole 40 MG TAB PO SCH ×2 (08:04→20:17)
[2019-05-27] MEDS: OXcarbazepine 150 MG TABLET PO SCH ×2 (08:04→20:15)
[2019-05-27] MEDS: VENLAFAXINE HCL XR 150 MG CAPXR PO SCH (08:06)
[2019-05-27] MEDS: DULOXETINE HCL 60 MG CAP PO SCH (08:06)
[2019-05-27] MEDS: ENOXAPARIN INJ 40 MG/0.4 ML SYR SQ SCH (08:07)
[2019-05-27] MEDS: BUDESONIDE 90 MCG INH INH SCH ×2 (08:08→20:15)
[2019-05-27] MEDS ORDERED: cefUROXime axetil 250 MG TABLET PO ONE (12:21)
--- NOTE | 2019-05-27 12:24 | Hospitalist Progress Note ---
Date of Service May 27, 2019 Assessment & Plan (1) Abdominal pain in female: history of left pyelonephritis Left flank pain Abdominal pain Hiatal hernia, small ventral hernia complicated urinary tract infection suspected -recently discharge on 05/23/19 after hospitalization for left flank pain associated with chills and shortness of breath and treated for left pyelonephritis with cefepime and during that hospitalization with urinary tract infection Escherichia coli -patient's discharge medication on 05/23/19 as cefuroxime axetil 250 mg PO BID 7 Days -patient then returns to ER on 05/25/19 complaining of abdominal pain, fever, chills and vomiting and unable to take oral medications -CT imaging on 05/25/19 generally unrevealing of acute process: Hiatal hernia. Mild stable splenomegaly. Prior cholecystectomy. Stable left renal cysts. Cortical scarring of the right kidney with at least one nonobstructing calcification. Multiple lower pole left renal calcifications unchanged from the prior exam. No evidence for hydronephrosis. Bladder is relatively collapsed. Small ventral hernia containing a small nonobstructing loop of small bowel. This is unchanged. No free fluid within the abdomen or pelvis. -patient admitted by nocturnalist in metal tile setter hours of 05/24/19 and started empirically on cefepime in case of a recurrent complicated urinary tract infection -however, initial urine analysis without bacteria, urine culture results negative and patient does not report of dysuria symptoms -patient's left flank pain may be residual inflammation from left pyelonephritis versus a pyelonephritis that has not been completely treated -C.difficile test negative on 05/26/19, stool cultures are no growth -as of 05/27/19, patient's blood culture on 05/25/19 with no growth to date and will transition patient from IV cefepime to oral cefuroxime -as left flank pain has been reduced by 05/27/19, no abdominal pain as of 05/27/19 and patient appears to be tolerating oral diet, no IV fluids needed at this time Chronic respiratory failure with hypoxia COPD, asthma and sleep apnea -recent discharge on 2 L/min oxygen via nasal cannula at rest and 3 L with ambulation and oxygen requirements attributed to multiple comorbid conditions including COPD, asthma and sleep apnea -pulmicort Obesity due to excessive calories with with BMI 45 to 49.9 in adult (BMI is 46.1) -as per PT/OT evaluations, patient may benefit with home health physical therapy services -encourage ambulation Hypertension -initial elevated blood pressures attribute to illness -continue home dose metoprolol, atorvastatin, clopidogrel Type 2 diabetes mellitus without track manager current of insulin -HbA1c 6.7 on this admission, appears to be new diagnosis of diabetes -advance fro liquid diet to solid diabetic diet -can consider metformin as outpatient when abdominal/flank symptoms further improve chronic anemia -hemoglobin at baseline history of mood disorder; anxiety, depression -continue home medications of duloxetine, venlafaxine, oxcarbazepine, gabapentin History of Colon cancer with surgery DVT prophylaxis. Lovenox subcu Full code Subjective Patient seen and examined while sitting up in the chair. She appears much more comfortable today. She has not vomitted since being in the hospital. She has been able to tolerate oral liquids and pills. She would like her diet to be advanced. has been afrebrile. no chest pain. no shortness of breath. no palpitations. no dizziness. no lightheadedness. she has much less left flank pain today as per patient Physical Exam Constitutional: + obese Eyes: PERRL, conjunctivae normal, anicteric sclerae EOM intact bilaterally ENMT: external ear and nose normal, oropharynx normal Neck: normal visual inspection and trachea midline Respiratory: normal respiratory effort, lungs clear to auscultation Cardiovascular: Rate/Rhythm: regular rate and regular rhythm Gastrointestinal (Abdomen): normal bowel sounds, soft, nontender, no hepatosplenomegaly Musculoskeletal: Head/Neck/Chest: normocephalic and head atraumatic less left flank tenderness today Neurologic: PERRL, EOMI, accommodation nl, no face palsy, no dysarthria Psychiatric: Orientation: alert, oriented x 3 and cooperative Results & Data Vital Signs (Past 12 Hours) Vital Signs Temp Pulse Resp BP Pulse Ox 05/27/19 12:00 36.9 C 81 18 133/77 96 05/27/19 07:12 36.7 C 64 18 137/85 99 05/27/19 04:00 36.7 C 66 20 120/76 95
[2019-05-27] MEDS: cefUROXime axetil 250 MG TABLET PO SCH (20:15)
[2019-05-27] MEDS: ATORVASTATIN 40 MG TAB PO SCH (20:16)
[2019-05-27] MEDS: CLOPIDOGREL BISULFATE 75 MG TAB PO SCH (20:16)
[2019-05-28 06:36] LABS: Basophils # (auto) 0.04 K/uL (0-0.2); Basophils % (auto) 0.6 %; Eosinophils # (auto) 0.31 K/uL (0-0.5); Eosinophils % (auto) 4.4 %; Hematocrit (blood only) 32.6 % (37-47); Hemoglobin 9.8 g/dL (12.0-16.0); Immature Granulocytes # (auto) 0.05 K/uL (0.00-0.02); Immature Granulocytes % (auto) 0.7 %; Lymphocytes # (auto) 1.39 K/uL (1.2-3.4); Lymphocytes % (auto) 19.7 %; Mean Corpuscular Hgb Conc 30.1 g/dL (32-36); Mean Corpuscular Volume 93.9 fL (80-100); Mean Platelet Volume 9.6 fL (7.4-10.4); Monocytes # (auto) 0.74 K/uL (0.11-0.59); Monocytes % (auto) 10.5 %; Neutrophils # (auto) 4.52 K/uL (1.4-6.5); Neutrophils % (auto) 64.1 %; Platelet Count 253 K/uL (130-400); RDW Standard Deviation 47.7 fL (36.4-46.3); Red Blood Count 3.47 M/uL (4.2-5.4); White Blood Count 7.05 K/uL (4.8-10.8)
[2019-05-28 07:19] LABS: BUN Creatinine Ratio 14.5 (10-20); Calcium 9.2 mg/dl (8.5-10.1); Creatinine Clr Calc Pharmacy 54.3 ml/min; Est GFR (Non-African American) 52.6
[2019-05-28] MEDS: cefUROXime axetil 250 MG TABLET PO SCH (08:05)
[2019-05-28] MEDS: VENLAFAXINE HCL XR 150 MG CAPXR PO SCH (08:05)
[2019-05-28] MEDS: DULOXETINE HCL 60 MG CAP PO SCH (08:05)
[2019-05-28] MEDS: ENOXAPARIN INJ 40 MG/0.4 ML SYR SQ SCH (08:05)
[2019-05-28] MEDS: METOPROLOL SUCC 25MG EXT REL TAB PO SCH (08:06)
[2019-05-28] MEDS: OXcarbazepine 150 MG TABLET PO SCH (08:06)
[2019-05-28] MEDS: GABAPENTIN 300 MG CAP PO SCH ×2 (08:06→14:05)
[2019-05-28] MEDS: BUDESONIDE 90 MCG INH INH SCH (08:06)
[2019-05-28] MEDS: PANTOprazole 40 MG TAB PO SCH (08:06)
--- NOTE | 2019-05-28 14:23 | Hospitalist Progress Note ---
Date of Service May 28, 2019 Assessment & Plan (1) Abdominal pain in female: history of left pyelonephritis Left flank pain Abdominal pain Hiatal hernia, small ventral hernia complicated urinary tract infection suspected -recently discharge on 05/23/19 after hospitalization for left flank pain associated with chills and shortness of breath and treated for left pyelonephritis with cefepime and during that hospitalization with urinary tract infection Escherichia coli -patient's discharge medication on 05/23/19 as cefuroxime axetil 250 mg PO BID 7 Days -patient then returns to ER on 05/25/19 complaining of abdominal pain, fever, chills and vomiting and unable to take oral medications -CT imaging on 05/25/19 generally unrevealing of acute process: Hiatal hernia. Mild stable splenomegaly. Prior cholecystectomy. Stable left renal cysts. Cortical scarring of the right kidney with at least one nonobstructing calcification. Multiple lower pole left renal calcifications unchanged from the prior exam. No evidence for hydronephrosis. Bladder is relatively collapsed. Small ventral hernia containing a small nonobstructing loop of small bowel. This is unchanged. No free fluid within the abdomen or pelvis. -Hernias are not suspected to be the cause of GI and flank complaints -patient admitted by nocturnalist in rn anesthesiology hours of 05/24/19 and started empirically on cefepime in case of a recurrent complicated urinary tract infection -however, initial urine analysis without bacteria, urine culture results negative and patient does not report of dysuria symptoms -patient's left flank pain may be residual inflammation from left pyelonephritis versus a pyelonephritis that has not been completely treated -C.difficile test negative on 05/26/19, stool cultures are no growth -as of 05/27/19, patient's blood culture on 05/25/19 with no growth to date and will transition patient from IV cefepime to oral cefuroxime -left flank pain has been reduced by 05/27/19, no abdominal pain as of 05/27/19 and patient appears to be tolerating oral diet, no IV fluids needed at this time -05/28/19: Patient continues to be feeling well and is afebrile on oral cefuroxome Patient should follow up with primary care doctor 05/29/2019 11:00 AM Provider Toño Naidu MD Department Internal [facility] Patient should continue supply of cefuroxome 250 mg twice a day as previously prescribed on last hospital discharge on 05/23/19 Chronic respiratory failure with hypoxia COPD, asthma and sleep apnea -recent discharge on 2 L/min oxygen via nasal cannula at rest and 3 L with ambulation and oxygen requirements attributed to multiple comorbid conditions including COPD, asthma and sleep apnea -continue oxygen as outpatient Obesity due to excessive calories with with BMI 45 to 49.9 in adult (BMI is 46.1) -Patient able to ambulate -on discharge to home, no additional needs identified as per case management, she will resume prior OOA waiver services. Hypertension -initial elevated blood pressures attribute to illness -continue home dose metoprolol, atorvastatin, clopidogrel Type 2 diabetes mellitus without fdc current of insulin (HbA1c 6.7 on this admission, appears to be new diagnosis of diabetes) -during hospital stay patient has been successfully advanced from liquid diet to solid diabetic diet -Patient is found to have Hemoglobain A1c of 6.7 and is recommended with a low sugar and low carbohydrate diet as recommended for people with diabetes. Patient has prescription of metformin 500 mg daily sent electronically to [facility] [address] [place] [address] [place] [id number] -Patient was counseled that metformin can have side effects of gastrointestinal upset, and that because patient was treated in this hospital stay initially for nausea and vomiting associated with previous diagnosis/treatment of pyelonephritis and complicated urinary tract infection, metformin was not given during the hospital stay. -Patient should discuss with primary care doctor on further diabetes mellitus management chronic anemia -hemoglobin at baseline history of mood disorder; anxiety, depression -continue home medications of duloxetine, venlafaxine, oxcarbazepine, gabapentin History of Colon cancer with surgery DVT prophylaxis. Lovenox subcu Other outpatient follow up 07/05/2019 11:30 AM Provider Francisco Javier Mancilla PA-C Department Cardiology [facility] Full code Discharge diagnosis history of left pyelonephritis; Left flank pain, complicated urinary tract infection suspected, Abdominal pain, Type 2 diabetes mellitus without fdc current of insulin, Chronic respiratory failure with hypoxia Subjective patient continues to feel well. no acute abdomen or back pain. eating well and no vomiting. minimal tenderness on percussion of left lower back. no dizziness. no lightheadedness. no chest pain. no palpitations. breathing comfortably on nasal cannula Physical Exam Constitutional: + obese Eyes: PERRL, conjunctivae normal, anicteric sclerae EOM intact bilaterally ENMT: external ear and nose normal, oropharynx normal Neck: normal visual inspection and trachea midline Respiratory: normal respiratory effort, lungs clear to auscultation Cardiovascular: Rate/Rhythm: regular rate and regular rhythm Gastrointestinal (Abdomen): normal bowel sounds, soft, nontender, no hepatosplenomegaly Percussion/Palpation: + abdomen tender (minimal tenderness on percussion of left lower back) Musculoskeletal: Head/Neck/Chest: normocephalic and head atraumatic Neurologic: PERRL, EOMI, accommodation nl, no face palsy, no dysarthria Psychiatric: Orientation: alert, oriented x 3 and cooperative Results & Data Vital Signs (Past 12 Hours) Vital Signs Temp Pulse Pulse Resp BP Pulse Ox 05/28/19 13:08 36.8 C 83 20 141/81 H 95 05/28/19 08:00 58 L 05/28/19 07:07 36.5 C 60 18 107/66 95 05/28/19 04:00 36.6 C 68 18 105/65 96
--- NOTE | 2019-05-28 14:35 | Discharge Summary ---
Date of Service May 28, 2019 Admission HPI Per Admitting Provider History obtained from patient and records. Medical history significant for recurrent syncope, hx postural hypotension as per records, chronic resp failure on home O2, COPD/asthma as per records, colon cancer sp surgery (2010), chronic anemia (baseline hemoglobin of 10-11), depression, ambulatory dysfunction, hx L renal cyst. OHS on CPAP as per records. Recent confinement May 16 11/23/2018 for acute pyelonephritis secondary to E. coli. Patient discharged on oral cephalosporin course. Yesterday, patient noted nausea, emesis symptoms associated with achy left flank pain. No hematuria, no fever, no chills. Watery diarrhea symptoms. Substernal pain from vomiting as per patient. No unusual shortness of breath. At the ER, patient received IV Ceftriaxone for possible UTI. 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 Admission Exam Per Admitting Provider GENERAL: Slightly uncomfortable, anxious, obese, chronic head tremors, no respiratory distress SKIN: Pallor , warm HEENT: pale palpebral conjunctivae, no ptosis, dry buccal mucosa NECK : Supple, short, no tenderness CHEST : Decreased breath sounds, no tenderness HEART : RRR, no obvious murmurs ABDOMEN: Some distention, nontender EXTREMITIES : Bilateral LE swelling, no LE tenderness, no other conspicuous deformities noted NEUROLOGIC : Coherent, no facial asymmetry, no other gross focality except for chronic head tremors Principal Diagnosis history of left pyelonephritis; Left flank pain, complicated urinary tract infection suspected, Abdominal pain, 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 diabetes mellitus without remote computer terminal 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 of insulin, Chronic respiratory failure with hypoxia Discharge Exam Constitutional + obese Eyes PERRL, conjunctivae normal, anicteric sclerae EOM intact bilaterally ENMT external ear and nose normal, oropharynx normal Neck normal visual inspection and trachea midline Respiratory normal respiratory effort, lungs clear to auscultation Cardiovascular Rate/Rhythm: regular rate and regular rhythm Gastrointestinal (Abdomen) normal bowel sounds, soft, nontender, no hepatosplenomegaly Percussion/Palpation: + abdomen tender (minimal tenderness on percussion of left lower back) Musculoskeletal Head/Neck/Chest: normocephalic and head atraumatic Neurologic PERRL, EOMI, accommodation nl, no face palsy, no dysarthria Psychiatric Orientation: alert, oriented x 3 and cooperative Discharge Data Allergies Allergy/AdvReac Type Severity Reaction Status Date / Time salicylates Allergy Severe SHORTNESS Verified 05/25/19 21:40 OF BREATH Iodinated Contrast- Oral and Allergy Intermediate EYES Verified 05/25/19 21:40 IV Dye SWELLING meperidine Allergy Intermediate ITCH Verified 05/25/19 21:40 morphine Allergy Intermediate ITCH Verified 05/25/19 21:40 aspirin Allergy Mild FACIAL Verified 05/25/19 21:40 SWELLING hydromorphone Allergy Mild RASH/ITCHIN Verified 05/25/19 21:40 G tramadol AdvReac Mild itch Verified 05/25/19 21:40 Consultations 05/25/19 23:54 ED Decision to Admit Stat 05/26/19 01:43 Consult Case Management - Discharge Planning Routine Ordered Studies 05/25/19 21:47 CT abd pelvis wo con Stat Hospital Course (1) Abdominal pain in female: history of left pyelonephritis Left flank pain Abdominal pain Hiatal hernia, small ventral hernia complicated urinary tract infection suspected -recently discharge on 05/23/19 after hospitalization for left flank pain associated with chills and shortness of breath and treated for left pyelonephritis with cefepime and during that hospitalization with urinary tract infection Escherichia coli -patient's discharge medication on 05/23/19 as cefuroxime axetil 250 mg PO BID 7 Days -patient then returns to ER on 05/25/19 complaining of abdominal pain, fever, chills and vomiting and unable to take oral medications -CT imaging on 05/25/19 generally unrevealing of acute process: Hiatal hernia. Mild stable splenomegaly. Prior cholecystectomy. Stable left renal cysts. Cortical scarring of the right kidney with at least one nonobstructing calcification. Multiple lower pole left renal calcifications unchanged from the prior exam. No evidence for hydronephrosis. Bladder is relatively collapsed. Small ventral hernia containing a small nonobstructing loop of small bowel. This is unchanged. No free fluid within the abdomen or pelvis. -Hernias are not suspected to be the cause of GI and flank complaints -patient admitted by nocturnalist in college advisor hours of 05/24/19 and started empirically on cefepime in case of a recurrent complicated urinary tract i nfection -however, initial urine analysis without bacteria, urine culture results negative and patient does not report of dysuria symptoms -patient's left flank pain may be residual inflammation from left pyelonephritis versus a pyelonephritis that has not been completely treated -C.difficile test negative on 05/26/19, stool cultures are no growth -as of 05/27/19, patient's blood culture on 05/25/19 with no growth to date and will transition patient from IV cefepime to oral cefuroxime -left flank pain has been reduced by 05/27/19, no abdominal pain as of 05/27/19 and patient appears to be tolerating oral diet, no IV fluids needed at this time -05/28/19: Patient continues to be feeling well and is afebrile on oral cefuroxome Patient should follow up with primary care doctor 05/29/2019 11:00 AM Provider Toño Naidu MD Department Internal Medicine [facility] Patient should continue supply of cefuroxome 250 mg twice a day as previously prescribed on last hospital discharge on 05/23/19 Chronic respiratory failure with hypoxia COPD, asthma and sleep apnea -recent discharge on 2 L/min oxygen via nasal cannula at rest and 3 L with ambulation and oxygen requirements attributed to multiple comorbid conditions including COPD, asthma and sleep apnea -continue oxygen as outpatient Obesity due to excessive calories with with BMI 45 to 49.9 in adult (BMI is 46.1) -Patient able to ambulate -on discharge to home, no additional needs identified as per case management, she will resume prior O waiver services. Hypertension -initial elevated blood pressures attribute to illness -continue home dose metoprolol, atorvastatin, clopidogrel Type 2 diabetes mellitus without remote computer terminal 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 of insulin (HbA1c 6.7 on this admission, appears to be new diagnosis of diabetes) -during hospital stay patient has been successfully advanced from liquid diet to solid diabetic diet -Patient is found to have Hemoglobain A1c of 6.7 and is recommended with a low sugar and low carbohydrate diet as recommended for people with diabetes. Patient has prescription of metformin 500 mg daily sent electronically to [facility] [address] [place] [address] Justen Kelley, [place] [id number] -Patient was counseled that metformin can have side effects of gastrointestinal upset, and that because patient was treated in this hospital stay initially for nausea and vomiting associated with previous diagnosis/treatment of pyelonephritis and complicated urinary tract infection, metformin was not given during the hospital stay. -Patient should discuss with primary care doctor on further diabetes mellitus management chronic anemia -hemoglobin at baseline history of mood disorder; anxiety, depression -continue home medications of duloxetine, venlafaxine, oxcarbazepine, gabapentin History of Colon cancer with surgery DVT prophylaxis. Lovenox subcu Other outpatient follow up 07/05/2019 11:30 AM Provider Francisco Javier Mancilla PA-C Department Cardiology [facility] Full code Discharge diagnosis history of left pyelonephritis; Left flank pain, complicated urinary tract infection suspected, Abdominal pain, Type 2 diabetes mellitus without remote computer terminal 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 of insulin, Chronic respiratory failure with hypoxia Total Time Total Time Spent Total Time Spent (In Minutes): 40 minutes Total Time Includes: Examination of the Patient, Discharge Planning, Medication Reconciliation and Communication With Other Providers Discharge Plan Discharge Items Patient Disposition: Home - Home Health Services Reason For Visit: HTN URGENCY, CP, COMPLICATED UTI Discharge Diagnosis: history of left pyelonephritis; Left flank pain, complicated urinary tract infection suspected, Abdominal pain, Type 2 diabetes mellitus without residential current of insulin, Chronic respiratory failure with hypoxia Condition: Good Discharge Goals: Improve disease control Activity: Resume your previous activity Non-emergency contact: Primary Care Provider Call non-emergency contact if: you have any medication questions Follow-up/Referrals: [facility] Care Provider[facility] - Diet: Carb Consistent or DM2 Addtl Provider Instructions: Patient should follow up with primary care doctor 05/29/2019 11:00 AM Provider Toño Naidu MD Department Internal Medicine [facility] Patient should continue supply of cefuroxome 250 mg twice a day as previously prescribed on last hospital discharge on 05/23/19 Patient is found to have Hemoglobain A1c of 6.7 and is recommended with a low sugar and low carbohydrate diet as recommended for people with diabetes. Patient has prescription of metformin 500 mg daily sent electronically to [facility] [address] [place] [address] [place] [address] Patient was counseled that metformin can have side effects of gastrointestinal upset, and that because patient was treated in this hospital stay initially for nausea and vomiting associated with previous diagnosis/treatment of pyelonephritis and complicated urinary tract infection, metformin was not given during the hospital stay. Patient should discuss with primary care doctor on further diabetes mellitus management Other outpatient follow up 07/05/2019 11:30 AM Provider Francisco Javier Mancilla PA-C Department Cardiology [facility] Prescriptions: New metformin [Glucophage] 500 mg Tablet 500 mg PO DAILYBD 30 Days Qty: 30 RF: 0 Continued atorvastatin [Lipitor] 40 mg Tablet 40 mg PO QPM RF: 0 clopidogrel [Plavix] 75 mg Tablet 75 mg PO QPM RF: 0 pantoprazole [Protonix] 40 mg Tablet,Delayed Release (Dr/Ec) 40 mg PO BID RF: 0 gabapentin 300 mg Capsule 300 mg PO TID RF: 0 hydroxyzine HCl 25 mg Tablet 25 mg PO BID PRN (Reason: Anxiety) RF: 0 riboflavin (vitamin B2) 400 mg Tablet 400 mg PO QPM RF: 0 metoprolol succinate 25 mg tablet extended release 24 hr 37.5 mg PO BID RF: 0 duloxetine 60 mg Capsule,Delayed Release(Dr/Ec) 60 mg PO QAM RF: 0 oxcarbazepine 300 mg tablet 300 mg PO BID RF: 0 albuterol sulfate 2.5 mg /3 mL (0.083 %) Solution For Nebulization 2.5 mg inhalation Q4H PRN (Reason: Shortness Of Breath Or Wheezing) RF: 0 budesonide 1 mg/2 mL suspension for nebulization 1 mg inhalation BID RF: 0 cholecalciferol (vitamin D3) [Vitamin D3] 2,000 unit Capsule 2,000 unit PO QAM RF: 0 cefuroxime axetil 250 mg tablet 250 mg PO BID 7 Days Qty: 14 RF: 0 ondansetron HCl 4 mg tablet 4 mg PO UD RF: 0 venlafaxine 150 mg Capsule,Extended Release 24hr 150 mg PO QAM RF: 0 tramadol 50 mg tablet 50 mg PO UD RF: 0 Discontinued magnesium oxide 400 mg (241.3 mg magnesium) Tablet 400 mg PO QAM RF: 0 Stand-Alone Forms: My [employer]Other Patient Handouts: Diabetes Residential Complications, Diabetes Healthy Meals, Diabetes Carbs, Blood Sugar Manage Exercise, Diabetes Exercise Benefits, Diabetes Exercise Get Started, Diabetes Activity Tips, Diabetes Manage A1C Test Discharge Orders: Discharge Order (Routine); Ordered 05/28/19 Ordered By: Chris Cabello Admission Data Admit Date/Time: 05/26/19 00:15 Attending Provider: Chris Cabello Admit Provider: Yaron John Primary Care Provider: Toño Naidu Other Providers: Yaron John Service: Telemetry Medical
[2019-05-29] MEDS ORDERED: METFORMIN HCL 500 MG TAB PO SCH (15:30)
== END 2019-05-28 16:54 | disposition home health service (06) | DRG 690 ==
LOC: ED 21:07 → 2N 05-26 00:15

== ENCOUNTER 2019-07-21 09:18 | Inpatient (IN) ==
[2019-07-21] MEDS ORDERED: SODIUM CHLORIDE 0.9% 500 ML IV SCH (09:45)
--- NOTE | 2019-07-21 09:59 | Emergency Department Note ---
Entered by Lucille Arteaga acting as a scribe for Jason Hinds DO History of Present Illness General Chief complaint: Illness Stated complaint: stroke symptoms Time Seen by Provider: 07/21/19 09:26 Source: patient Mode of arrival: EMS History of Present Illness Onset (ago): hour(s) 5 Location: head Pain Consistency: + other (episode) Quality: + other (weakness/possible fall) Associated symptoms: + denies other symptoms (urinary symptoms, changes in intake) and + other (pain in back, buttocks, and abdomen, drowiness, slurred speech, low O2 saturation) The patient is a 63 year old female that is presenting to the Emergency Room with complaints of an episode of weakness that occurred this morning. The patient arrived to the ED via EMS. EMS states that the patient was last known well around 0400. EMS reports that they were called by the patients caregiver. EMS notes that the patients caregiver found the patient on the floor around 0800 this morning after a possible fall. EMS states that the caregiver reported that the patient was drowsy with slurred speech and a low O2 saturation level. The patient states that she has pain in her back, buttocks, and abdomen. She notes that she takes pain medication for her history of back pain. She denies any urinary symptoms. She denies any changes in her appetite or fluid intake. Home Medications Home Medications Medication Instructions Recorded Confirmed Type atorvastatin [Lipitor] 40 mg PO QPM 07/12/18 07/21/19 History clopidogrel [Plavix] 75 mg PO QPM 07/12/18 07/21/19 History gabapentin 300 mg PO TID 07/12/18 07/21/19 History hydroxyzine HCl 25 mg PO BID PRN 07/12/18 07/21/19 History pantoprazole [Protonix] 40 mg PO BID 07/12/18 07/21/19 History riboflavin (vitamin B2) 400 mg PO QPM 07/12/18 07/21/19 History duloxetine 60 mg PO QAM 10/16/18 07/21/19 History budesonide 1 mg INHALATION BID 05/16/19 07/21/19 History cholecalciferol (vitamin D3) 2,000 unit PO QAM 05/16/19 07/21/19 History [Vitamin D3] oxcarbazepine 300 mg PO BID 05/16/19 07/21/19 History ondansetron HCl 4 mg PO Q6H PRN 05/25/19 07/21/19 History venlafaxine 150 mg PO QAM 05/25/19 07/21/19 History albuterol sulfate 2 puff INHALATION Q4H PRN 07/21/19 07/21/19 History metformin 500 mg PO DAILY 07/21/19 07/21/19 History metoprolol succinate 50 mg PO BID 07/21/19 07/21/19 History Allergies Allergy/AdvReac Type Severity Reaction Status Date / Time salicylates Allergy Severe SHORTNESS Verified 07/21/19 10:11 OF BREATH Iodinated Contrast Media Allergy Intermediate EYES Verified 07/21/19 10:11 SWELLING meperidine Allergy Intermediate ITCH Verified 07/21/19 10:11 morphine Allergy Intermediate ITCH Verified 07/21/19 10:11 aspirin Allergy Mild FACIAL Verified 07/21/19 10:11 SWELLING hydromorphone Allergy Mild RASH/ITCHIN Verified 07/21/19 10:11 G tramadol AdvReac Mild itch Verified 07/21/19 10:11 Past Med/Surg History Medical History Anxiety Asthma USES INH 1 X Q 2-3 MONTHS; LAST USED 1 MONTH AGO Chronic back pain Chronic headaches Chronic kidney disease FOLLOWS W/ DR. JASON Deep vein thrombosis LLE - COULD NOT RECALL DATE - REPORTS SHE WAS TREATED AT [facility] W/ BLOOD THINNERS Degenerative disc disease Depression GERD (gastroesophageal reflux disease) History of colon cancer 2012 S/P BOWEL RESECTION. Hyperlipidemia Hypertension Kidney stones Myocardial Infarction REPORTS [place] 4 MONTHS AGO --> [facility] -- CARDIAC CATH --> NO STENTS/ANGIOPLASTY PER PT REPORT -- POOR HISTORIAN? REPORTS SHE IS ON PLAVIX FOR HEART - DENIES STENTS - DENIES ARRHYTHMIA - FOLLOWS [facility]/ DR. TORRES Osteoarthritis Poor historian Surgical History H/O hand surgery RIGHT History of appendectomy History of bowel resection History of cardiac cath 4 MONTHS AGO - [place] - DENIES STENTS/ANGIOPLASTY - [facility] - FOLLOWS Ampar[facility]/ DR. TORRES History of cataract surgery History of kidney surgery POOR HISTORIAN -- COULD NOT RECALL SPECIFICS. 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 and A total of 10 systems reviewed and were otherwise negative Physical Exam Vital Signs Vital Signs - 24 hr 07/21/19 09:35 07/21/19 10:00 07/21/19 12:00 Temperature 36.7 C Temperature Source Oral Sepsis Recent Fever Within 48 Hours No Sepsis New/Unexplained Change in Mental Status No Sepsis Action Taken by Nursing No Action Required Pulse Rate 107 H 106 H Pulse Rate [Apical] 106 H 98 H Pulse Rhythm Regular Pulse Rhythm [Apical] Regular Pulse Strength [Apical] Normal Respiratory Rate 20 20 16 Respiratory Effort / Characteristics Non-Labored Spontaneous Respiratory Depth Normal Respiratory Pattern Regular Blood Pressure 98/67 L Blood Pressure [Right Arm] 98/67 L 102/63 Blood Pressure Mean 77 Blood Pressure Mean [Right Arm] 77 76 Blood Pressure Position [Right Arm] Lying Pulse Oximetry 95 95 96 Oxygen Delivery Method Nasal Cannula Room Air Nasal Cannula Oxygen Flow Rate 3 3 2 07/21/19 13:27 Temperature Temperature Source Sepsis Recent Fever Within 48 Hours Sepsis New/Unexplained Change in Mental Status Sepsis Action Taken by Nursing Pulse Rate Pulse Rate [Apical] 98 H Pulse Rhythm Pulse Rhythm [Apical] Pulse Strength [Apical] Respiratory Rate 16 Respiratory Effort / Characteristics Respiratory Depth Respiratory Pattern Blood Pressure Blood Pressure [Right Arm] 106/69 Blood Pressure Mean Blood Pressure Mean [Right Arm] 81 Blood Pressure Position [Right Arm] Pulse Oximetry 96 Oxygen Delivery Method Nasal Cannula Oxygen Flow Rate 2 CONSTITUTIONAL/VITAL SIGNS: Reviewed / noted above. GENERAL: Non-toxic in appearance. INTEGUMENTARY: Warm, dry, and [place]. HEAD: Normocephalic. EYES: without scleral icterus or trauma. ENT/OROPHARYNX: clear and moist. LYMPHADENOPATHY/NECK: Is supple without lymphadenopathy or meningismus. RESPIRATORY: Lungs clear and equal. CARDIOVASCULAR: Regular rate and rhythm. GI/ABDOMEN: Soft and nontender. No organomegaly or pulsatile mass. No rebound or guarding. Normal bowel sounds. Tenderness to palpation of suprapubic region. EXTREMITIES: Warm and well perfused. BACK: No CVA tenderness. NEUROLOGICALLY: Lethargic. Speech is slurred and difficult to understand. Pupils are mid position and respond appropriately to light. Significant generalized weakness in all 4 extremities. PSYCHIATRIC: normal affect. MUSCULOSKELETAL: Normally developed with good muscle tone. Course 0918: I took a call from [facility] at this time about the patient. Stroke alert was not called at this time given the unclear timeframe and the patient's symptoms. 0927:The patient was evaluated in room B11B. A complete history and physical examination was performed. 1300: I discussed the patient's case with NICHOL Zavala, who will evaluate the patient for further management and care with Dr. Modi as the attending physician. 1309: Upon reevaluation, the patient is resting comfortably. I discussed laboratory and radiographic results with the patient. She verbalized agreement of the treatment plan. The patient will be evaluated for further management and care. Consultations Consultation #1: I discussed the patient's case with NICHOL Zavala, who will evaluate the patient for further management and care with Dr. Modi as the attending physician. Time: 13:00 Administered Medications Vancomycin HCl 2,000 mg/ (Sodium Chloride) 540 mls @ 200 mls/hr IV NOW ONE Stop: 07/21/19 16:10 Last Admin: 07/21/19 14:07 Dose: 200 mls/hr Documented by: [id number] Discontinued Medications Sodium Chloride (Nss) 500 mls @ 999 mls/hr IV .Q31M MARLA Stop: 07/21/19 10:15 Last Infusion: 07/21/19 11:30 Dose: 0 mls/hr Documented by: [id number] Admin: 07/21/19 10:59 Dose: 999 mls/hr Documented by: [id number] Ceftriaxone Sodium (Rocephin) 1,000 mg in 50 mls @ 100 mls/hr IV NOW STA Stop: 07/21/19 13:24 Last Admin: 07/21/19 13:29 Dose: Not Given Documented by: [id number] Azithromycin 500 mg/ Dextrose 255 mls @ 127.5 mls/hr IV NOW STA Stop: 07/21/19 14:54 Last Admin: 07/21/19 13:29 Dose: Not Given Documented by: [id number] Piperacillin Sod/Tazobactam Sod (Zosyn) 4.5 gm in 120 mls @ 240 mls/hr IV NOW ONE Stop: 07/21/19 13:26 Last Infusion: 07/21/19 13:41 Dose: 0 mls/hr Documented by: [id number] Admin: 07/21/19 13:04 Dose: 240 mls/hr Documented by: [id number] Medical Decision Making Differential Diagnosis Differential includes acute coronary syndrome, myocardial infarction, CVA, TIA, anemia, infection, pneumonia, UTI, pyelonephritis, poor nutrition, dehydration, electrolyte disturbance,hypoglycemia. Medical Records Attestation: I reviewed the patient's medical records. Home Medications Current Medication List: was personally reviewed by me Laboratory Data Attestation: I reviewed the patient's lab results. Result diagrams: 07/21/19 09:55 07/21/19 09:55 Lab Results 07/21/19 07/21/19 07/21/19 Range/Units 09:00 09:00 09:55 WBC 21.49 H (4.8-10.8) K/uL RBC 3.83 L (4.2-5.4) M/uL Hgb 10.7 L (12.0-16.0) g/dL Hct 36.1 L (37-47) % MCV 94.3 (80-100) fL MCH 27.9 (25-34) pg MCHC 29.6 L (32-36) g/dL RDW Std Deviation 52.0 H (36.4-46.3) fL RDW Coeff of Teresa 15.0 H (11.5-14.5) % Plt Count 282 (130-400) K/uL MPV 10.5 H (7.4-10.4) fL Immature Gran % (Auto) 0.3 % Neut % (Auto) 91.1 % Lymph % (Auto) 2.8 % Weld % (Auto) 5.7 % Eos % (Auto) 0.1 % Baso % (Auto) 0.0 % Immature Gran # (Auto) 0.07 H (0.00-0.02) K/uL Neut # (Auto) 19.55 H (1.4-6.5) K/uL Lymph # (Auto) 0.61 L (1.2-3.4) K/uL Weld # (Auto) 1.22 H (0.11-0.59) K/uL Eos # (Auto) 0.03 (0-0.5) K/uL Baso # (Auto) 0.01 (0-0.2) K/uL PT (9.0-12.0) Seconds INR (0.9-1.1) Sodium (136-145) mmol/L Potassium (3.5-5.1) mmol/L Chloride (98-107) mmol/L Carbon Dioxide (21-32) mmol/L Anion Gap (3-11) BUN (7-18) mg/dl Creatinine (0.6-1.2) mg/dl Est Cr Clr Drug Dosing ml/min Est GFR ( Amer) Est GFR (Non-Af Amer) BUN/Creatinine Ratio (10-20) Glucose (70-99) mg/dl Lactate (0.4-2.0) mmol/L Calcium (8.5-10.1) mg/dl Total Bilirubin (0.2-1) mg/dl AST (15-37) U/L ALT (12-78) U/L Alkaline Phosphatase (45-117) U/L Ammonia (11-32) umol/L Total Protein (6.4-8.2) gm/dl Albumin (3.4-5.0) gm/dl Globulin (2.5-4.0) gm/dl Albumin/Globulin Ratio (0.9-2) Lipase (73-393) U/L Urine Color Yellow Urine Appearance Clear (Clear) Urine pH 5.0 (4.5-7.5) Ur Specific [place] 1.022 (1.000-1.030) Urine Protein 1+ H (Negative) Urine Glucose (UA) Negative (Negative) Urine Ketones Negative (Negative) Urine Blood 1+ H (Negative) Urine Nitrite Negative (Negative) Urine Bilirubin Negative (Negative) Urine Urobilinogen Negative (Negative) Ur Leukocyte Esterase Negative (Negative) Urine WBC (Auto) 1-5 (0-5) /hpf Urine RBC (Auto) 0-4 (0-4) /hpf U Hyaline Cast (Auto) 1-5 (0-5) /lpf U Epithel Cells (Auto) 0-5 (0-5) /lpf Urine Bacteria (Auto) Negative (Negative) Urine Opiates Screen Neg (Neg) Ur Methadone, Qual Neg (Neg) Urine Barbiturates Neg (Neg) Ur Phencyclidine (PCP) Neg (Neg) U Amphetamin/Meth Scrn Neg (Neg) MDMA (Ecstasy) Screen Neg (Neg) U Benzodiazepines Scrn Neg (Neg) Ur Cocaine Metabolite Neg (Neg) U Marijuana (THC) Screen Neg (Neg) Ethyl Alcohol mg/dL (0-3) mg/dl 07/21/19 07/21/19 07/21/19 Range/Units 09:55 10:13 10:13 WBC (4.8-10.8) K/uL RBC (4.2-5.4) M/uL Hgb (12.0-16.0) g/dL Hct (37-47) % MCV (80-100) fL MCH (25-34) pg MCHC (32-36) g/dL RDW Std Deviation (36.4-46.3) fL RDW Coeff of Teresa (11.5-14.5) % Plt Count (130-400) K/uL MPV (7.4-10.4) fL Immature Gran % (Auto) % Neut % (Auto) % Lymph % (Auto) % Weld % (Auto) % Eos % (Auto) % Baso % (Auto) % Immature Gran # (Auto) (0.00-0.02) K/uL Neut # (Auto) (1.4-6.5) K/uL Lymph # (Auto) (1.2-3.4) K/uL Weld # (Auto) (0.11-0.59) K/uL Eos # (Auto) (0-0.5) K/uL Baso # (Auto) (0-0.2) K/uL PT 9.8 (9.0-12.0) Seconds INR 1.0 (0.9-1.1) Sodium 142 (136-145) mmol/L Potassium 4.5 (3.5-5.1) mmol/L Chloride 111 H (98-107) mmol/L Carbon Dioxide 24 (21-32) mmol/L Anion Gap 7.0 (3-11) BUN 16 (7-18) mg/dl Creatinine 1.33 H (0.6-1.2) mg/dl Est Cr Clr Drug Dosing 50.2 ml/min Est GFR ( Amer) 48.5 Est GFR (Non-Af Amer) 41.8 BUN/Creatinine Ratio 12.3 (10-20) Glucose 142 H (70-99) mg/dl Lactate (0.4-2.0) mmol/L Calcium 9.1 (8.5-10.1) mg/dl Total Bilirubin 0.3 (0.2-1) mg/dl AST 19 (15-37) U/L ALT 28 (12-78) U/L Alkaline Phosphatase 114 (45-117) U/L Ammonia < 10.0 L (11-32) umol/L Total Protein 7.7 (6.4-8.2) gm/dl Albumin 3.1 L (3.4-5.0) gm/dl Globulin 4.6 H (2.5-4.0) gm/dl Albumin/Globulin Ratio 0.7 L (0.9-2) Lipase 183 (73-393) U/L Urine Color Urine Appearance (Clear) Urine pH (4.5-7.5) Ur Specific [place] (1.000-1.030) Urine Protein (Negative) Urine Glucose (UA) (Negative) Urine Ketones (Negative) Urine Blood (Negative) Urine Nitrite (Negative) Urine Bilirubin (Negative) Urine Urobilinogen (Negative) Ur Leukocyte Esterase (Negative) Urine WBC (Auto) (0-5) /hpf Urine RBC (Auto) (0-4) /hpf U Hyaline Cast (Auto) (0-5) /lpf U Epithel Cells (Auto) (0-5) /lpf Urine Bacteria (Auto) (Negative) Urine Opiates Screen (Neg) Ur Methadone, Qual (Neg) Urine Barbiturates (Neg) Ur Phencyclidine (PCP) (Neg) U Amphetamin/Meth Scrn (Neg) MDMA (Ecstasy) Screen (Neg) U Benzodiazepines Scrn (Neg) Ur Cocaine Metabolite (Neg) U Marijuana (THC) Screen (Neg) Ethyl Alcohol mg/dL (0-3) mg/dl 07/21/19 07/21/19 Range/Units 10:13 10:19 WBC (4.8-10.8) K/uL RBC (4.2-5.4) M/uL Hgb (12.0-16.0) g/dL Hct (37-47) % MCV (80-100) fL MCH (25-34) pg MCHC (32-36) g/dL RDW Std Deviation (36.4-46.3) fL RDW Coeff of Teresa (11.5-14.5) % Plt Count (130-400) K/uL MPV (7.4-10.4) fL Immature Gran % (Auto) % Neut % (Auto) % Lymph % (Auto) % Weld % (Auto) % Eos % (Auto) % Baso % (Auto) % Immature Gran # (Auto) (0.00-0.02) K/uL Neut # (Auto) (1.4-6.5) K/uL Lymph # (Auto) (1.2-3.4) K/uL Weld # (Auto) (0.11-0.59) K/uL Eos # (Auto) (0-0.5) K/uL Baso # (Auto) (0-0.2) K/uL PT (9.0-12.0) Seconds INR (0.9-1.1) Sodium (136-145) mmol/L Potassium (3.5-5.1) mmol/L Chloride (98-107) mmol/L Carbon Dioxide (21-32) mmol/L Anion Gap (3-11) BUN (7-18) mg/dl Creatinine (0.6-1.2) mg/dl Est Cr Clr Drug Dosing ml/min Est GFR ( Amer) Est GFR (Non-Af Amer) BUN/Creatinine Ratio (10-20) Glucose (70-99) mg/dl Lactate 2.4 H* (0.4-2.0) mmol/L Calcium (8.5-10.1) mg/dl Total Bilirubin (0.2-1) mg/dl AST (15-37) U/L ALT (12-78) U/L Alkaline Phosphatase (45-117) U/L Ammonia (11-32) umol/L Total Protein (6.4-8.2) gm/dl Albumin (3.4-5.0) gm/dl Globulin (2.5-4.0) gm/dl Albumin/Globulin Ratio (0.9-2) Lipase (73-393) U/L Urine Color Urine Appearance (Clear) Urine pH (4.5-7.5) Ur Specific [place] (1.000-1.030) Urine Protein (Negative) Urine Glucose (UA) (Negative) Urine Ketones (Negative) Urine Blood (Negative) Urine Nitrite (Negative) Urine Bilirubin (Negative) Urine Urobilinogen (Negative) Ur Leukocyte Esterase (Negative) Urine WBC (Auto) (0-5) /hpf Urine RBC (Auto) (0-4) /hpf U Hyaline Cast (Auto) (0-5) /lpf U Epithel Cells (Auto) (0-5) /lpf Urine Bacteria (Auto) (Negative) Urine Opiates Screen (Neg) Ur Methadone, Qual (Neg) Urine Barbiturates (Neg) Ur Phencyclidine (PCP) (Neg) U Amphetamin/Meth Scrn (Neg) MDMA (Ecstasy) Screen (Neg) U Benzodiazepines Scrn (Neg) Ur Cocaine Metabolite (Neg) U Marijuana (THC) Screen (Neg) Ethyl Alcohol mg/dL < 3.0 (0-3) mg/dl Imaging Data Radiologist's Impression: Radiology results as stated below per my review and the radiologist's interpretation: ABDOMEN AND PELVIS CT WITHOUT CONTRAST CT DOSE: 2041.63 mGy.cm HISTORY: Acute suprapubic abdominal pain with reported acute fall suprapubic a bd pain TECHNIQUE: Multiaxial CT images of the abdomen and pelvis were performed without contrast. A dose lowering technique was utilized adhering to the principles of ALARA. COMPARISON STUDY: CT abdomen and pelvis 05/25/2019 FINDINGS: Calcified granuloma of the basal left lower lobe. Minimal patchy nodular consolidative and groundglass densities of the left lung with multifocal tree-in-bud and patchy bronchovascular distribution of alveolar opacities throughout the basal right lower lobe with associated bronchial wall thickening. There is no pneumatosis or pneumoperitoneum. The imaged inferior cardiac chambers appear unremarkable. Cholecystectomy. Limited evaluation of the solid abdominal organs without the use of IV contrast. Hepatomegaly with hepatic steatosis. Spleen is enlarged, 1 4.1 cm. Pancreas and adrenal glands appear unremarkable. Motion degraded exam. 4 mm nonobstructing calculus of the inferior pole right kidney. Atrophy with multifocal cortical scarring and parenchymal thinning of the left kidney redemonstrated with multiple parenchymal calcifications. Calcifications of the inferior pole left kidney measure up to 1.8 cm. Large cyst of the superior pole left kidney measures 8.2 cm. Probable cyst of the interpolar right kidney. No ureteral calculi or obstructive uropathy. Decompressed bladder with mild wall thickening. Focus of air noted within the nondependent urinary bladder lumen Hysterectomy. Phleboliths are noted about the pelvis. No adnexal mass lesion. A alayna and IVC are unremarkable. No adenopathy. Moderate sized hiatal hernia. No bowel obstruction. Moderate fecal retention of the rectum and distal sigmoid. Postoperative changes from prior subtotal colectomy. Multiple ventral abdominal wall hernias are redemonstrated, most inferior hernia is small to moderate in size and contains nonobstructed bowel and mesenteric fat. Soft tissues are otherwise unremarkable. Degenerative changes of the spine, pelvis and hips. IMPRESSION: 1. No bowel obstruction or bowel wall thickening. 2. Multifocal right greater than left bibasilar opacities as above suggests bronchopneumonia with bronchiolitis. 3. Multiple bowel and mesenteric fat containing ventral abdominal wall hernias are redemonstrated. 4. Partial distention of the urinary bladder with mild wall thickening. A focus of air is also noted within the nondependent bladder suggestive of instru mentation versus gas forming organism. Correlate with urinalysis. 5. Nonobstructing bilateral nephrolithiasis with chronic changes of the left kidney. No hydronephrosis. 6. Moderate hiatal hernia. 7. Additional findings as above. Electronically signed by: Mack Calderon M.D. 07/21/2019 10:[address] head/brain wo con CLINICAL HISTORY: 63 years-old Female with fall, lethargic. Acute head injury status post fall TECHNIQUE: Multiple axial CT images of the head were obtained without contrast. A dose lowering technique was utilized adhering to the principles of ALARA. COMPARISON: Head CT 05/21/2019 FINDINGS: No acute intracranial hemorrhage, midline shift, intracranial mass, hydrocephalus, territorial ischemia or abnormal extra-axial collection. Mild age-related involutional changes. Study is mildly motion degraded. Patchy white matter hypodensities suggest chronic microvascular ischemic disease. Cerebral vascular calcifications are also noted. The calvarium is intact. Prior bilateral cataract repair. The paranasal sinuses, mastoid air cells, and middle ear cavities are clear. IMPRESSION: No acute intracranial abnormality or calvarial fracture. The above report was generated using voice recognition software. It may contain grammatical, syntax or spelling errors. Electronically signed by: Mack Calderon M.D. 07/21/2019 10:34 AM ECG Data Attestation: I personally reviewed and interpreted this ECG as follows: Indication: weakness Rate (beats per minute): 107 Rhythm: sinus tachycardia Findings: no PAC, no PVC, no ST elevation and no ectopy Blood Pressure Blood Pressure Findings: Low blood pressure MDM Narrative This is a 63-year-old female who presents to the ED with a chief complaint of generalized weakness, slurring speech, pain in the suprapubic area. It is unclear how long the symptoms have been not going on for. The patient is difficult to understand. Her speech is slurred. History was obtained from EMS. She apparently fell and was on the floor when a caregiver came in and found her this morning. She fell possibly at 4 AM. The patient states that she has difficulty moving her arms and legs but normally is able to get around with difficulty on her own. She, on my exam has significant weakness in all 4 extremities. She can barely hold her arms up for a few seconds. She cannot get her legs off of the bed. She has no facial droop. She appears very drowsy. When she speaks her speech is having slurred. She does have some tenderness in the suprapubic abdominal area on my exam. I did check the pupils as she takes pain medication. In a dark room, her pupils dilate to about the mid position and they do respond appropriately to light. She did report some back pain although my exam there is no obvious abnormalities with regards to her back or buttock area. She has no sacral decubitus ulcers. She has no tenderness to exam or any rashes. The patient's chest x-ray reveals bilateral multifocal pneumonia. CT scan of the abdomen pelvis reveals the same. Right greater than left. CT scan of the brain did not show acute process. Ammonia level was normal. EKG showed a sinus tach at a rate of 107. Lipase was negative. Lactic acid level was 2.4. White blood cell count is 21.5. Glucose is 142. Alcohol was negative. The patient was treated with IV fluids. She was also given IV Zosyn. She will be seen by the hospitalist for further evaluation and care. Impression & Plan Pneumonia, Leukocytosis, Lethargy Discharge Plan Visit Data Chief Complaint: Illness Stated Complaint: stroke symptoms ED Provider: Jason Hinds Discharge Problem: Pneumonia, Leukocytosis, Lethargy Patient Disposition: Being Evaluated by Hospitalist Discharge Instructions Interventions: ED Discharge Assessment Last Done: 07/21/19 14:14 Discharge Problem: Pneumonia Qualifiers: Pneumonia type: due to unspecified organism Laterality: bilateral Lung location: lower lobe of lung Qualified Code(s): J18.1 - Lobar pneumonia, unspecified organism Leukocytosis Qualifiers: Leukocytosis type: unspecified Qualified Code(s): D72.829 - Elevated white blood cell count, unspecified The scribe's documentation has been prepared under my direction and personally reviewed by me in its entirety. I confirm that the note above accurately reflec ts all work, treatment, procedures, and medical decision making performed by me.
[2019-07-21 10:07] LABS: Hematocrit (blood only) 36.1 % (37-47); Hemoglobin 10.7 g/dL (12.0-16.0); Mean Corpuscular Hemoglobin 27.9 pg (25-34); Mean Corpuscular Hgb Conc 29.6 g/dL (32-36); Mean Corpuscular Volume 94.3 fL (80-100); Mean Platelet Volume 10.5 fL (7.4-10.4); Platelet Count 282 K/uL (130-400); Red Blood Count 3.83 M/uL (4.2-5.4); White Blood Count 21.49 K/uL (4.8-10.8)
[2019-07-21 10:27] LABS: Albumin Level 3.1 gm/dl (3.4-5.0); BUN Creatinine Ratio 12.3 (10-20); Basophils # (auto) 0.01 K/uL (0-0.2); Calcium 9.1 mg/dl (8.5-10.1); Creatinine Clr Calc Pharmacy 50.2 ml/min; Eosinophils # (auto) 0.03 K/uL (0-0.5); Eosinophils % (auto) 0.1 %; Est GFR (African American) 48.5; Est GFR (Non-African American) 41.8; Immature Granulocytes # (auto) 0.07 K/uL (0.00-0.02); Immature Granulocytes % (auto) 0.3 %; Lymphocytes # (auto) 0.61 K/uL (1.2-3.4); Lymphocytes % (auto) 2.8 %; Monocytes # (auto) 1.22 K/uL (0.11-0.59); Monocytes % (auto) 5.7 %; Neutrophils # (auto) 19.55 K/uL (1.4-6.5); Neutrophils % (auto) 91.1 %; Potassium 4.5 mmol/L (3.5-5.1)
[2019-07-21 10:28] LABS: Appearance Urine Clear (Clear); Bacteria Urine Automated Negative (Negative); Bilirubin Urine Negative (Negative); Blood Urine 1+ (Negative); Color Urine Yellow; Epithelial Cell Urine Auto 0-5 /lpf (0-5); Glucose Urine UA Negative (Negative); Ketones Urine Negative (Negative); Leukocyte Esterase Urine Negative (Negative); Nitrite Urine Negative (Negative); Protein Urine 1+ (Negative); RBC Urine Automated 0-4 /hpf (0-4); Specific Gravity Urine 1.022 (1.000-1.030); Urobilinogen Urine Negative (Negative)
[2019-07-21 10:30] LABS: Albumin Globulin Ratio 0.7 (0.9-2); Bilirubin,Total 0.3 mg/dl (0.2-1); Globulin 4.6 gm/dl (2.5-4.0); Total Protein 7.7 gm/dl (6.4-8.2)
--- NOTE | 2019-07-21 10:35 | CT Scan Report ---
CT head/brain wo con CLINICAL HISTORY: 63 years-old Female with fall, lethargic. Acute head injury status post fall TECHNIQUE: Multiple axial CT images of the head were obtained without contrast. A dose lowering tech nique was utilized adhering to the principles of ALARA. COMPARISON: Head CT 05/21/2019 FINDINGS: No acute intracranial hemorrhage, midline shift, intracranial mass, hydrocephalus, territorial ischem ia or abnormal extra-axial collection. Mild age-related involutional changes. Study is mildly motion degraded. Patchy white matter hypodensities suggest chronic microvascular ischemic disease. Cerebral vascular calcifications are also noted. The calvarium is intact. Prior bilateral cataract repair. The paranasal sinuses, mastoid air cells, a nd middle ear cavities are clear. IMPRESSION: No acute intracranial abnormality or calvarial fracture. The above report was generated using voice recognition software. It may contain grammatical, syntax o r spelling errors. Electronically signed by: Mack Calderon M.D. 07/21/2019 10:34 AM
[2019-07-21 10:47] LABS: Prothrombin Time 9.8 Seconds (9.0-12.0)
--- NOTE | 2019-07-21 10:47 | CT Scan Report ---
ABDOMEN AND PELVIS CT WITHOUT CONTRAST CT DOSE: 2041.63 mGy.cm HISTORY: Acute suprapubic abdominal pain with reported acute fall suprapubic abd pain TECHNIQUE: Multiaxial CT images of the abdomen and pelvis were performed without contrast. A dose lo wering technique was utilized adhering to the principles of ALARA. COMPARISON STUDY: CT abdomen and pelvis 05/25/2019 FINDINGS: Calcified granuloma of the basal left lower lobe. Minimal patchy nodular consolidative and groundglas s densities of the left lung with multifocal tree-in-bud and patchy bronchovascular distribution of a lveolar opacities throughout the basal right lower lobe with associated bronchial wall thickening. Th ere is no pneumatosis or pneumoperitoneum. The imaged inferior cardiac chambers appear unremarkable. Cholecystectomy. Limited evaluation of the solid abdominal organs without the use of IV contrast. Hep atomegaly with hepatic steatosis. Spleen is enlarged, 14.1 cm. Pancreas and adrenal glands appear unr emarkable. Motion degraded exam. 4 mm nonobstructing calculus of the inferior pole right kidney. Atro phy with multifocal cortical scarring and parenchymal thinning of the left kidney redemonstrated with multiple parenchymal calcifications. Calcifications of the inferior pole left kidney measure up to 1 .8 cm. Large cyst of the superior pole left kidney measures 8.2 cm. Probable cyst of the interpolar r ight kidney. No ureteral calculi or obstructive uropathy. Decompressed bladder with mild wall thicken ing. Focus of air noted within the nondependent urinary bladder lumen Hysterectomy. Phleboliths are n oted about the pelvis. No adnexal mass lesion. Aorta and IVC are unremarkable. No adenopathy. Moderate sized hiatal hernia. No bowel obstruction. Moderate fecal retention of the rectum and distal sigmoid. Postoperative changes from prior subtotal colectomy. Multiple ventral abdominal wall hernia s are redemonstrated, most inferior hernia is small to moderate in size and contains nonobstructed jeremias wel and mesenteric fat. Soft tissues are otherwise unremarkable. Degenerative changes of the spine, pelvis and hips. IMPRESSION: 1. No bowel obstruction or bowel wall thickening. 2. Multifocal right greater than left bibasilar opacities as above suggests bronchopneumonia with bro nchiolitis. 3. Multiple bowel and mesenteric fat containing ventral abdominal wall hernias are redemonstrated. 4. Partial distention of the urinary bladder with mild wall thickening. A focus of air is also noted within the nondependent bladder suggestive of instrumentation versus gas forming organism. Correlate with urinalysis. 5. Nonobstructing bilateral nephrolithiasis with chronic changes of the left kidney. No hydronephrosi s. 6. Moderate hiatal hernia. 7. Additional findings as above. Electronically signed by: Mack Calderon M.D. 07/21/2019 10:46 AM
[2019-07-21 10:51] LABS: Amphetamines+Metham, Urine Neg (Neg); Barbiturates, Urine Neg (Neg); Benzodiazepine, Urine Neg (Neg); Cocaine, Urine Neg (Neg); MDMA (Ecstacy), Urine Neg (Neg); Methadone, Urine Neg (Neg); Opiate, Urine Neg (Neg); Phencyclidine, Urine Neg (Neg)
--- NOTE | 2019-07-21 11:38 | XRay Report ---
XR chest 1V portable HISTORY: 63 years-old Female ams acutely altered mental status COMPARISON: Chest radiograph 05/25/2019, CT abdomen and pelvis 07/21/2019 TECHNIQUE: Portable AP view of the chest FINDINGS: Cardiac silhouette appears normal. Asymmetric right hilar prominence is noted with multifocal right g reater than left reticular nodular opacities and bibasilar patchy consolidation. No pneumothorax or l arge pleural effusion. Degenerative changes of the shoulders and spine. IMPRESSION: Multifocal right greater than left reticular nodular opacities and bibasilar consolidatio n suggests multifocal pneumonia. Follow-up imaging after treatment course recommended to document res olution. The above report was generated using voice recognition software. It may contain grammatical, syntax o r spelling errors. Electronically signed by: Mack Calderon M.D. 07/21/2019 11:35 AM
[2019-07-21] MEDS ORDERED: cefTRIAXone SODIUM 1,000 MG/50 ML BAG IV STA (12:55)
[2019-07-21] MEDS ORDERED: AZITHROMYCIN 500 MG in DEXTROSE 5% 250 ML IV STA (12:55)
[2019-07-21] MEDS ORDERED: PIPERACILLIN/TAZOBACTAM 4.5 GM/120 ML BAG IV ONE (12:57)
[2019-07-21] MEDS ORDERED: PIPERACILL/TAZOBAC CONSULT ACTIVE PRN (12:57)
[2019-07-21] MEDS ORDERED: VANCOMYCIN HCL 2,000 MG in SODIUM CHLORIDE 0.9% 500 ML IV ONE (13:29)
--- NOTE | 2019-07-21 13:47 | History & Physical Report ---
Date of Service July 21, 2019 Assessment & Plan (1) Sepsis: Noted to have tachycardia, tachypnea with increasing white count of 20,000 Sepsis secondary to bilateral multifocal pneumonia Blood cultures were taken and she was started with intravenous Zosyn and vancomycin She was given adequate amount of intravenous fluid Initial lactate was 2.4 there to be repeated in 6 hours MRSA swab is been ordered Antibiotics can be de-escalate it depending on December the results and improvement of her condition Present on Admission?: Yes (2) Pneumonia: Has multifocal pneumonia as above (3) COPD exacerbation: History of COPD/asthma on home oxygen Without any acute exacerbation at this time We will continue her baseline medications No intravenous steroid is needed (4) HTN (hypertension): Blood pressure seems to be stable Remote history of NSTEMI Cardiac cath with normal coronaries in 2016 Has been on Plavix (5) CKD (chronic kidney disease), stage III: Creatinine is slightly up at 1.33 We will give cautious amount of IV fluid and monitor PRP (6) Depression: No acute confusion Continue current medication (7) Obesity hypoventilation syndrome: Uses CPAP at night 24 oxygen We will continue CPAP Type 2 diabetes Hold metformin Put her on sliding scale insulin coverage DVT prophylaxis Subcu heparin CODE STATUS DNR/DNI No family members were available to update and the patient refused to any update given to her family members History of Present Illness Chief Complaint: Weakness, dizziness with a fall earlier this morning Primary Care Provider: Toño Naidu MD She is a 63-year-old obese female with significant past medical history including COPD/asthma on home oxygen, CKD stage III, hypertension, hyperlipidemia, depression, GERD and history of colon cancer was brought into the emergency room with a history of fall early this morning around 4 AM. She lives alone and she was not wearing her oxygen and while she was getting out of bed and with the bathroom she had a fall. She was on the floor for some time until this morning and she could not get up due to weakness and tiredness. She has been complaining of bilateral leg weakness and with dizziness on ambulation for a day or 2. Denies any cough but complains to have some shortness of breath. She feels same shaky and cold at times but denies any fever and/or chills. In the emergency room she was noted to be tachycardic at presentation with a white count of 21,000 and chest x-ray did show bilateral multifocal pneumonia and the lactic was 2.4. She was started with cautious amount of IV fluid and intravenous Vanco and Zosyn and was admitted to telemetry unit for continuation of care. Allergies Allergy/AdvReac Type Severity Reaction Status Date / Time salicylates Allergy Severe SHORTNESS Verified 07/21/19 10:11 OF BREATH Iodinated Contrast Media Allergy Intermediate EYES Verified 07/21/19 10:11 SWELLING meperidine Allergy Intermediate ITCH Verified 07/21/19 10:11 morphine Allergy Intermediate ITCH Verified 07/21/19 10:11 aspirin Allergy Mild FACIAL Verified 07/21/19 10:11 SWELLING hydromorphone Allergy Mild RASH/ITCHIN Verified 07/21/19 10:11 G tramadol AdvReac Mild itch Verified 07/21/19 10:11 Home Medications Home Medications Medication Instructions Recorded Confirmed Type atorvastatin [Lipitor] 40 mg PO QPM 07/12/18 07/21/19 History clopidogrel [Plavix] 75 mg PO QPM 07/12/18 07/21/19 History gabapentin 300 mg PO TID 07/12/18 07/21/19 History hydroxyzine HCl 25 mg PO BID PRN 07/12/18 07/21/19 History pantoprazole [Protonix] 40 mg PO BID 07/12/18 07/21/19 History riboflavin (vitamin B2) 400 mg PO QPM 07/12/18 07/21/19 History duloxetine 60 mg PO QAM 10/16/18 07/21/19 History budesonide 1 mg INHALATION BID 05/16/19 07/21/19 History cholecalciferol (vitamin D3) 2,000 unit PO QAM 05/16/19 07/21/19 History [Vitamin D3] oxcarbazepine 300 mg PO BID 05/16/19 07/21/19 History ondansetron HCl 4 mg PO UD 05/25/19 07/21/19 History venlafaxine 150 mg PO QAM 05/25/19 07/21/19 History albuterol sulfate 2 puff INHALATION Q4H PRN 07/21/19 07/21/19 History metformin 500 mg PO DAILY 07/21/19 07/21/19 History metoprolol succinate 50 mg PO BID 07/21/19 07/21/19 History Past Med/Surg History Medical History Anxiety Asthma USES INH 1 X Q 2-3 MONTHS; LAST USED 1 MONTH AGO Chronic back pain Chronic headaches Chronic kidney disease FOLLOWS W/ DR. JASON Deep vein thrombosis LLE - COULD NOT RECALL DATE - REPORTS SHE WAS TREATED AT [facility] W/ BLOOD THINNERS Degenerative disc disease Depression GERD (gastroesophageal reflux disease) History of colon cancer 2012 S/P BOWEL RESECTION. Hyperlipidemia Hypertension Kidney stones Myocardial Infarction REPORTS [place] 4 MONTHS AGO --> [facility] -- CARDIAC CATH --> NO STENTS/ANGIOPLASTY PER PT REPORT -- POOR HISTORIAN? REPORTS SHE IS ON PLAVIX FOR HEART - DENIES STENTS - DENIES ARRHYTHMIA - FOLLOWS W/ DR. TORRES Osteoarthritis Poor historian Surgical History H/O hand surgery RIGHT History of appendectomy History of bowel resection History of cardiac cath 4 MONTHS AGO - [place] - DENIES STENTS/ANGIOPLASTY - [facility] - FOLLOWS W/ DR. TORRES History of cataract surgery History of kidney surgery POOR HISTORIAN -- COULD NOT RECALL SPECIFICS. 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: No Beliefs That Will Affect Care: None marital status: Current Living Situation: Alone Feels Safe at Home: Yes Smoking Status: Unknown if ever smoked Hx Alcohol Use: No Hx Substance Use: No Review of Systems Review of Systems: All systems reviewed & are unremarkable except as noted in HPI & below Physical Exam Physical Exam: Lying in bed without significant distress Constitutional: well developed, well nourished, + ill appearing and + obese; no acute distress Eyes: PERRL, conjunctivae normal, anicteric sclerae ENMT: external ear and nose normal, oropharynx normal Neck: trachea midline, no thyromegaly Respiratory: normal respiratory effort and + respiratory distress (Minimal shortness of breath at rest) Auscultation: + diminished lung sounds and + crackles (Bibasilar crackles more on the right than the left) Cardiovascular: Rate/Rhythm: regular rate and regular rhythm Heart Sounds: no murmur Gastrointestinal (Abdomen): Inspection/Auscultation: abdomen normal to inspection and normal bowel sounds Percussion/Palpation: abdomen soft Musculoskeletal: No acute arthritis in any of the joints Neurologic: moves all extremities; no focal motor deficits Has occasional shakes involving the upper extremities which was noted during her last admission. She remains drowsy but otherwise alert, awake and oriented Lymphatic: no cervical or axillary lymphadenopathy Results & Data Vital Signs (Past 12 Hours) Vital Signs Temp Pulse Pulse Resp BP BP Pulse Ox 07/21/19 13:27 98 H 16 106/69 96 07/21/19 12:00 98 H 16 102/63 96 07/21/19 10:00 106 H 106 H 20 98/67 L 95 07/21/19 09:35 36.7 C 107 H 20 98/67 L 95 Laboratory Results Short CBC 07/21/19 Range/Units 09:55 WBC 21.49 H (4.8-10.8) K/uL Hgb 10.7 L (12.0-16.0) g/dL Hct 36.1 L (37-47) % Plt Count 282 (130-400) K/uL BMP 07/21/19 09:55 Sodium 142 Potassium 4.5 Chloride 111 H Carbon Dioxide 24 BUN 16 Creatinine 1.33 H Glucose 142 H Calcium 9.1 Liver Function 07/21/19 Range/Units 09:55 Total Bilirubin 0.3 (0.2-1) mg/dl AST 19 (15-37) U/L ALT 28 (12-78) U/L Alkaline Phosphatase 114 (45-117) U/L Albumin 3.1 L (3.4-5.0) gm/dl Urine 07/21/19 Range/Units 09:00 Urine Color Yellow Urine Appearance Clear (Clear) Urine pH 5.0 (4.5-7.5) Ur Specific [place] 1.022 (1.000-1.030) Urine Protein 1+ H (Negative) Urine Glucose (UA) Negative (Negative) Medications Administered Current Inpatient Medications Vancomycin HCl 2,000 mg/ (Sodium Chloride) 540 mls @ 200 mls/hr IV NOW ONE Stop: 07/21/19 16:10 Miscellaneous Information (Consult) 1 ea N/A UD PRN PRN Reason: Consult Stop: 08/20/19 12:56 Code Status & VTE Plan VTE Prophylaxis Plan VTE Prophylaxis will be ordered: Yes (1) Pneumonia Laterality: bilateral Lung location: lower lobe of lung Pneumonia type: due to unspecified organism Qualified Code(s): J18.1 - Lobar pneumonia, unspecified organism
[2019-07-21] MEDS ORDERED: DEXTROSE 50% 50 ML SYRINGE IV PRN (14:41)
[2019-07-21] MEDS ORDERED: GLUCAGON FOR INJ 1 MG VIAL SQ PRN (14:41)
[2019-07-21] MEDS ORDERED: CARBOHYDRATES FOR HYPOGLYCEMIA PO PRN (14:41)
[2019-07-21] MEDS ORDERED: VANCOMYCIN CONSULT ACTIVE PRN (14:41)
[2019-07-21] MEDS ORDERED: GLUCOSE 40% GEL 15 GM TUBE PO PRN (14:41)
[2019-07-21] MEDS ORDERED: GLUCOSE 10 TABS/TUBE PO PRN (14:41)
[2019-07-21 15:02] LABS: Influenza A virus by PCR Neg for Influ A (Neg); Influenza B virus by PCR Neg for Influ B (Neg)
[2019-07-21] MEDS ORDERED: SODIUM CHLORIDE 0.9% 1000ML 1,000 ML IV ONE (15:04)
[2019-07-21] MEDS: SODIUM CHLORIDE 0.9% 1000ML 1,000 ML IV SCH (15:14)
--- NOTE | 2019-07-21 15:25 | Pharmacy Report ---
Pharmacy Abx Initial Consult - Date of Service July 21, 2019 - Pharmacy Dosing Scope Date of Consult: 07/21/19 Consultation requested by: NICHOL Zavala Pharmacy is consulted to initiate vancomycin and Zosyn IV dosing therapy, order appropriate labs and adjust drug dose/frequency. - Subjective The patient is a 63 year old F admitted on 07/21/19 14:22. - Objective Height: 5 ft 3 in Weight: 110 kg Vital Signs (Past 12hrs): Vital Signs Temp Pulse Pulse Resp BP BP Pulse Ox 07/21/19 15:06 37.2 C 99 H 18 119/72 93 07/21/19 13:27 98 H 16 106/69 96 07/21/19 12:00 98 H 16 102/63 96 07/21/19 10:00 106 H 106 H 20 98/67 L 95 07/21/19 09:35 36.7 C 107 H 20 98/67 L 95 Lab Results (24hrs): Laboratory Tests (24 Hours) 07/21/19 07/21/19 09:55 09:55 WBC 21.49 H Neut # (Auto) 19.55 H Creatinine 1.33 H Est Cr Clr Drug Dosing 50.2 Micro Results: 07/21/19 14:07 Aerobic Blood Culture - Pending Blood Anaerobic Blood Culture - Pending 07/21/19 13:45 Aerobic Blood Culture - Pending Blood Anaerobic Blood Culture - Pending - Risk Factors for Resistance * Hospitalization for 48 hours or more within the past 90 days * Admitted to [facility] in May - received IV cefepime for 2 days - Assessment & Plan Assessment 63 year old F ordered empiric vancomycin and Zosyn for treatment of sepsis secondary to bilateral multifocal pneumonia. Patient has a history of COPD, asthma, hypertension, CKD, and type 2 diabetes. Pertinent labs on admission: lactate (2.4 -> 3.1), WBC: 21,500, SCr: 1.33 (has fluctuated in the past from 0.8-1.5 mg/dL, but this appears to be above baseli ne), BUN: 16 mg/dL. Microbiology: Blood x 2 (07/21): pending MRSA nasal swab: pending Plan Vancomycin IV * Estimated PK Parameters: Vd 0.54 L/kg, Kal 0.046 hr-1, t1/2 15 hr * Loading dose: 2000 mg (18 mg/kg) * Maintenance dose: 1500 mg IV (14 mg/kg) every 16 hours * Goal trough level for pneumonia : 15 to 20 mcg/mL * Will assess AM renal function, adjust frequency if needed, and order follow-up trough * Anticipating improvement in renal function based on previous SCr data Piperacillin/tazobactam * 4.5 g bolus administered over 30 minutes, then 4.5 g IV extended infusion every 8 hours for CrCl greater than 20 mL/min * Aggressive dosing selected due to BMI 35 or more Pharmacy will continue to follow and will adjust dose/frequency as necessary. Thank you.
[2019-07-21] MEDS: ALBUT/IPRATROP 3MG/0.5MG NEB 3 ML VIAL NEB SCH ×2 (15:41→18:54)
[2019-07-21] MEDS: GABAPENTIN 300 MG CAP PO SCH ×2 (16:26→19:54)
[2019-07-21] MEDS: HEPARIN SOD 5,000 UNIT/0.5 ML VIAL SQ SCH ×2 (16:26→21:24)
[2019-07-21] MEDS: INSULIN ASPART 100 UNITS/ML 3 ML PEN SC SCH ×2 (16:57→20:37)
[2019-07-21] MEDS: PIPERACILLIN/TAZOBACTAM 4.5 GM in DEXTROSE 5% 100 ML IV SCH (17:15)
[2019-07-21] MEDS: BUDESONIDE 0.5 MG/2 ML VIAL (PULMICORT) INH SCH (18:54)
[2019-07-21] MEDS ORDERED: BUDESONIDE 0.5 MG/2 ML VIAL (PULMICORT) INH SCH (19:00)
[2019-07-21] MEDS: METOPROLOL SUCC 50MG EXT REL TAB PO SCH (19:53)
[2019-07-21] MEDS: OXcarbazepine 150 MG TABLET PO SCH (19:54)
[2019-07-21] MEDS: ATORVASTATIN 40 MG TAB PO SCH (19:54)
[2019-07-21] MEDS: PANTOprazole 40 MG TAB PO SCH (19:54)
[2019-07-21] MEDS: CLOPIDOGREL BISULFATE 75 MG TAB PO SCH (19:54)
[2019-07-21] MEDS ORDERED: NON-FORMULARY MEDICATION (Riboflavin (Vitamin B2) 400 MG) PO SCH (21:00)
[2019-07-22] MEDS: PIPERACILLIN/TAZOBACTAM 4.5 GM in DEXTROSE 5% 100 ML IV SCH ×3 (00:53→17:23)
[2019-07-22] MEDS: SODIUM CHLORIDE 0.9% 1000ML 1,000 ML IV SCH ×3 (03:45→22:23)
[2019-07-22] MEDS: HEPARIN SOD 5,000 UNIT/0.5 ML VIAL SQ SCH ×3 (05:36→21:21)
[2019-07-22] MEDS ORDERED: VANCOMYCIN HCL 1,500 MG in SODIUM CHLORIDE 0.9% 500 ML IV SCH (06:00)
[2019-07-22 06:02] LABS: Hematocrit (blood only) 28.1 % (37-47); Hemoglobin 8.3 g/dL (12.0-16.0); Mean Corpuscular Hemoglobin 28.1 pg (25-34); Mean Corpuscular Hgb Conc 29.5 g/dL (32-36); Mean Corpuscular Volume 95.3 fL (80-100); Mean Platelet Volume 9.8 fL (7.4-10.4); Platelet Count 214 K/uL (130-400); RDW Coefficient of Variation 15.4 % (11.5-14.5); RDW Standard Deviation 53.4 fL (36.4-46.3); Red Blood Count 2.95 M/uL (4.2-5.4); White Blood Count 13.36 K/uL (4.8-10.8)
[2019-07-22 06:49] LABS: BUN Creatinine Ratio 10.7 (10-20); Calcium 8.1 mg/dl (8.5-10.1); Creatinine Clr Calc Pharmacy 57.3 ml/min; Est GFR (African American) 57.2; Est GFR (Non-African American) 49.4; Potassium 3.8 mmol/L (3.5-5.1)
[2019-07-22] MEDS: ALBUT/IPRATROP 3MG/0.5MG NEB 3 ML VIAL NEB SCH ×4 (07:02→19:07)
[2019-07-22] MEDS: BUDESONIDE 0.5 MG/2 ML VIAL (PULMICORT) INH SCH ×2 (07:02→19:07)
[2019-07-22] MEDS: CHOLECALCIFEROL 1,000 UNITS TAB PO SCH (08:21)
[2019-07-22] MEDS: GABAPENTIN 300 MG CAP PO SCH ×3 (08:21→21:17)
[2019-07-22] MEDS: DULOXETINE HCL 60 MG CAP PO SCH (08:21)
[2019-07-22] MEDS: VENLAFAXINE HCL XR 150 MG CAPXR PO SCH (08:21)
[2019-07-22] MEDS: METOPROLOL SUCC 50MG EXT REL TAB PO SCH ×2 (08:21→21:17)
[2019-07-22] MEDS: OXcarbazepine 150 MG TABLET PO SCH ×2 (08:22→21:16)
[2019-07-22] MEDS: INSULIN ASPART 100 UNITS/ML 3 ML PEN SC SCH ×4 (08:22→21:21)
[2019-07-22] MEDS: PANTOprazole 40 MG TAB PO SCH ×2 (08:22→21:20)
[2019-07-22] MEDS: ACETAMINOPHEN 325 MG TAB PO PRN (12:21)
--- NOTE | 2019-07-22 12:42 | Hospitalist Progress Note ---
Date of Service July 22, 2019 Assessment & Plan (1) Sepsis: Sepsis Bilateral multifocal pneumonia CXR:Multifocal right greater than left reticular nodular opacities and bibasilar consolidation suggests multifocal pneumonia. Follow-up imaging after treatment course recommended to document resolution. Negative MRSA screen Blood cultures pending Lactate levels normalized IV vancomycin, Zosyn>>> transition to Zosyn Day #2 Continue IV fluids Continue supplemental oxygen as needed Leukocytosis trending down Dizziness No rhythm issues on monitor Check orthostatics (2) Pneumonia: Management as above (3) COPD exacerbation: Chronic respiratory failure with hypoxia No signs of exacerbation Continue home inhalers continue supplemental oxygen (4) HTN (hypertension): Improved with IV fluids Continue current medications Monitor H/O NSTEMI Cardiac cath with normal coronaries in 2016 Continue Plavix, Lipitor (5) CKD (chronic kidney disease), stage III: Creatinine level slightly elevated on presentation Creatinine back to baseline with IV fluids Monitor renal function Avoid nephrotoxic agents as able (6) Depression: No acute issues Continue home medications (7) Obesity hypoventilation syndrome: Continue CPAP Q Hs DM II Hold metformin Continue ISS Monitor BGs DVT Px: Heparin SQ CODE STATUS DNR/DNI Disposition: To be determined Subjective Patient is seen and examined at bedside Complains of dizziness, cough, chest congestion today Denies any shortness of breath currently Had occupational therapy this morning Offers no other complaints Review of Systems Review of Systems: All systems reviewed & are unremarkable except as noted in HPI & below Physical Exam Physical Exam: Physical Exam: Vitals signs as noted above General Appearance:Obese, no apparent distress Head: normocephalic, Atraumatic Eyes: normal inspection, EOMI Neck: supple, Trachea midline Respiratory/Chest: Decreased breath sounds, +Basal Crackles Cardiovascular: S1, S2, No murmur Abdomen/GI:Soft, Non tender, Bowel sounds present Extremities/Musculoskelatal:normal inspection, no edema Neurologic/Psych:AAOX3, grossly no focal neurological deficits Skin: normal color, warm Results & Data Vital Signs (Past 12 Hours) Vital Signs Temp Pulse Pulse Resp BP Pulse Ox Pulse Ox 07/22/19 12:00 36.8 C 86 20 132/83 20 L 07/22/19 11:35 95 07/22/19 11:07 64 18 96 07/22/19 08:15 87 07/22/19 07:16 36.8 C 79 20 110/73 98 07/22/19 07:02 75 18 98 07/22/19 03:26 36.6 C 86 19 120/71 94 Laboratory Results Short CBC 07/22/19 Range/Units 05:40 WBC 13.36 H (4.8-10.8) K/uL Hgb 8.3 L (12.0-16.0) g/dL Hct 28.1 L (37-47) % Plt Count 214 (130-400) K/uL BMP 07/22/19 05:40 Sodium 142 Potassium 3.8 D Chloride 112 H Carbon Dioxide 25 BUN 12 Creatinine 1.16 Glucose 125 H Calcium 8.1 L (1) Pneumonia Laterality: bilateral Lung location: lower lobe of lung Pneumonia type: due to unspecified organism Qualified Code(s): J18.1 - Lobar pneumonia, unspecified organism
[2019-07-22] MEDS: ATORVASTATIN 40 MG TAB PO SCH (21:17)
[2019-07-22] MEDS: CLOPIDOGREL BISULFATE 75 MG TAB PO SCH (21:17)
[2019-07-23] MEDS: PIPERACILLIN/TAZOBACTAM 4.5 GM in DEXTROSE 5% 100 ML IV SCH ×3 (02:03→17:12)
[2019-07-23] MEDS: HEPARIN SOD 5,000 UNIT/0.5 ML VIAL SQ SCH ×3 (05:57→20:47)
[2019-07-23 06:30] LABS: Hematocrit (blood only) 27.8 % (37-47); Hemoglobin 8.2 g/dL (12.0-16.0); Mean Corpuscular Hemoglobin 27.9 pg (25-34); Mean Corpuscular Hgb Conc 29.5 g/dL (32-36); Mean Corpuscular Volume 94.6 fL (80-100); Mean Platelet Volume 9.8 fL (7.4-10.4); Platelet Count 219 K/uL (130-400); RDW Coefficient of Variation 15.3 % (11.5-14.5); RDW Standard Deviation 52.3 fL (36.4-46.3); Red Blood Count 2.94 M/uL (4.2-5.4); White Blood Count 8.69 K/uL (4.8-10.8)
[2019-07-23 06:57] LABS: BUN Creatinine Ratio 9.3 (10-20); Calcium 8.7 mg/dl (8.5-10.1); Creatinine Clr Calc Pharmacy 53.9 ml/min; Est GFR (African American) 52.8; Est GFR (Non-African American) 45.5; Potassium 4.4 mmol/L (3.5-5.1)
[2019-07-23] MEDS: ALBUT/IPRATROP 3MG/0.5MG NEB 3 ML VIAL NEB SCH ×2 (07:22→18:57)
[2019-07-23] MEDS: BUDESONIDE 0.5 MG/2 ML VIAL (PULMICORT) INH SCH ×2 (07:22→18:57)
[2019-07-23] MEDS: SODIUM CHLORIDE 0.9% 1000ML 1,000 ML IV SCH (08:10)
[2019-07-23] MEDS: GABAPENTIN 300 MG CAP PO SCH ×3 (08:11→20:41)
[2019-07-23] MEDS: METOPROLOL SUCC 50MG EXT REL TAB PO SCH ×2 (08:11→20:43)
[2019-07-23] MEDS: PANTOprazole 40 MG TAB PO SCH ×2 (08:11→20:42)
[2019-07-23] MEDS: CHOLECALCIFEROL 1,000 UNITS TAB PO SCH (08:12)
[2019-07-23] MEDS: VENLAFAXINE HCL XR 150 MG CAPXR PO SCH (08:12)
[2019-07-23] MEDS: DULOXETINE HCL 60 MG CAP PO SCH (08:12)
[2019-07-23] MEDS: INSULIN ASPART 100 UNITS/ML 3 ML PEN SC SCH ×4 (08:13→20:47)
[2019-07-23] MEDS: OXcarbazepine 150 MG TABLET PO SCH ×2 (08:13→20:43)
[2019-07-23] MEDS: ACETAMINOPHEN 325 MG TAB PO PRN ×2 (16:24→20:40)
--- NOTE | 2019-07-23 19:47 | Hospitalist Progress Note ---
Date of Service July 23, 2019 Assessment & Plan (1) Sepsis: Sepsis Bilateral multifocal pneumonia R/O Bacteremia CXR:Multifocal right greater than left reticular nodular opacities and bibasilar consolidation suggests multifocal pneumonia. Follow-up imaging after treatment course recommended to document resolution. Negative MRSA screen Blood cultures: Gram-negative cocci, Staphylococcus species Lactate levels normalized IV vancomycin, Zosyn>>> transition to Zosyn Day #3 Received IV fluids Check ECHO Consulted ID for input Continue supplemental oxygen as needed Leukocytosis normalized Dizziness No rhythm issues on monitor Negative orthostatics (2) Pneumonia: Management as above (3) COPD exacerbation: Chronic respiratory failure with hypoxia No signs of exacerbation Continue home inhalers continue supplemental oxygen (4) HTN (hypertension): Improved with IV fluids Continue current medications Monitor H/O NSTEMI Cardiac cath with normal coronaries in 2016 Continue Plavix, Lipitor (5) CKD (chronic kidney disease), stage III: Creatinine at baseline Monitor renal function Avoid nephrotoxic agents as able (6) Depression: No acute issues Continue home medications (7) Obesity hypoventilation syndrome: Continue CPAP Q Hs DM II Hold metformin Continue ISS Monitor BGs DVT Px: Heparin SQ CODE STATUS DNR/DNI Disposition: To be determined Subjective Patient is seen and examined at bedside Feels better today Less cough and shortness of breath Reports dizziness with ambulation No other complaints Review of Systems Review of Systems: All systems reviewed & are unremarkable except as noted in HPI & below Physical Exam Physical Exam: Physical Exam: Vitals signs as noted above General Appearance:Obese, no apparent distress Head: normocephalic, Atraumatic Eyes: normal inspection, EOMI Neck: supple, Trachea midline Respiratory/Chest: Decreased breath sounds, +Basal Crackles Cardiovascular: S1, S2, No murmur Abdomen/GI:Soft, Non tender, Bowel sounds present Extremities/Musculoskelatal:normal inspection, no edema Neurologic/Psych:AAOX3, grossly no focal neurological deficits Skin: normal color, warm Results & Data Vital Signs (Past 12 Hours) Vital Signs Temp Pulse Resp BP Pulse Ox 07/23/19 19:42 36.7 C 84 17 131/75 97 07/23/19 19:00 90 16 98 07/23/19 16:55 36.9 C 84 18 139/80 97 07/23/19 11:13 37.0 C 90 18 120/77 98 Laboratory Results Short CBC 07/23/19 Range/Units 06:07 WBC 8.69 (4.8-10.8) K/uL Hgb 8.2 L (12.0-16.0) g/dL Hct 27.8 L (37-47) % Plt Count 219 (130-400) K/uL BMP 07/23/19 06:07 Sodium 141 Potassium 4.4 D Chloride 111 H Carbon Dioxide 25 BUN 12 Creatinine 1.24 H Glucose 124 H Calcium 8.7 (1) Pneumonia Laterality: bilateral Lung location: lower lobe of lung Pneumonia type: due to unspecified organism Qualified Code(s): J18.1 - Lobar pneumonia, unspecified organism
[2019-07-23] MEDS: ATORVASTATIN 40 MG TAB PO SCH (20:41)
[2019-07-23] MEDS: CLOPIDOGREL BISULFATE 75 MG TAB PO SCH (20:42)
[2019-07-24] MEDS: PIPERACILLIN/TAZOBACTAM 4.5 GM in DEXTROSE 5% 100 ML IV SCH ×3 (02:23→18:17)
[2019-07-24] MEDS: ACETAMINOPHEN 325 MG TAB PO PRN (03:10)
[2019-07-24] MEDS: HEPARIN SOD 5,000 UNIT/0.5 ML VIAL SQ SCH ×3 (05:49→21:23)
[2019-07-24 06:18] LABS: Hematocrit (blood only) 26.9 % (37-47); Mean Corpuscular Hgb Conc 29.7 g/dL (32-36); Mean Corpuscular Volume 94.1 fL (80-100); Mean Platelet Volume 9.7 fL (7.4-10.4); Platelet Count 215 K/uL (130-400); Red Blood Count 2.86 M/uL (4.2-5.4); White Blood Count 7.34 K/uL (4.8-10.8)
[2019-07-24 06:52] LABS: BUN Creatinine Ratio 8.3 (10-20); Calcium 9.1 mg/dl (8.5-10.1); Creatinine Clr Calc Pharmacy 58.3 ml/min; Est GFR (African American) 58.4; Est GFR (Non-African American) 50.4; Potassium 4.2 mmol/L (3.5-5.1)
[2019-07-24] MEDS ORDERED: PERFLUTREN LIPID MICROSPHERE (DEFINITY) IV ONE (07:05)
[2019-07-24] MEDS: BUDESONIDE 0.5 MG/2 ML VIAL (PULMICORT) INH SCH ×2 (07:18→19:39)
[2019-07-24] MEDS: ALBUT/IPRATROP 3MG/0.5MG NEB 3 ML VIAL NEB SCH ×2 (07:18→19:39)
[2019-07-24] MEDS: METOPROLOL SUCC 50MG EXT REL TAB PO SCH ×2 (08:10→21:25)
[2019-07-24] MEDS: VENLAFAXINE HCL XR 150 MG CAPXR PO SCH (08:11)
[2019-07-24] MEDS: DULOXETINE HCL 60 MG CAP PO SCH (08:11)
[2019-07-24] MEDS: PANTOprazole 40 MG TAB PO SCH ×2 (08:11→21:25)
[2019-07-24] MEDS: GABAPENTIN 300 MG CAP PO SCH ×3 (08:11→21:25)
[2019-07-24] MEDS: CHOLECALCIFEROL 1,000 UNITS TAB PO SCH (08:11)
[2019-07-24] MEDS: OXcarbazepine 150 MG TABLET PO SCH ×2 (08:12→21:25)
[2019-07-24] MEDS: INSULIN ASPART 100 UNITS/ML 3 ML PEN SC SCH ×4 (08:12→21:21)
--- NOTE | 2019-07-24 10:23 | Infectious Disease Consult ---
Date of Consultation July 24, 2019 Assessment & Plan (1) Gram negative septicemia: 63-year-old female with gram-negative sepsis with pneumonia, suspect this is possible Moraxella infection. Suspect the coagulase-negative staph is a contaminant. Appears to be responding to current treatment and will continue for now pending final identification and sensitivities. Will follow. (2) Pneumonia: History of Present Illness Reason for Consultation: Bacteremia Attending Physician: Danny Turner MD History of Present Illness 63-year-old female with complicated past medical history including severe COPD on home oxygen, hypertension, hyperlipidemia, stage III chronic kidney disease, who was brought to the hospital after fall at home. Patient remembers little of preceding events. She apparently had had 1 to 2-day history of weakness with shortness of breath and slight cough, nonproductive, felt chills but no fever reported. Was found to have evidence of sepsis with elevated white count and lactic acid and chest x-ray showed multifocal pneumonia. Blood cultures now reported positive, 1 set with coagulase-negative staph, other growing gram- negative cocci. Patient has been started empirically on vancomycin and Zosyn, and states she is feeling better this morning. No other significant travel or exposure history reported. Allergies Allergy/AdvReac Type Severity Reaction Status Date / Time salicylates Allergy Severe SHORTNESS Verified 07/21/19 10:11 OF BREATH Iodinated Contrast Media Allergy Intermediate EYES Verified 07/21/19 10:11 SWELLING meperidine Allergy Intermediate ITCH Verified 07/21/19 10:11 morphine Allergy Intermediate ITCH Verified 07/21/19 10:11 aspirin Allergy Mild FACIAL Verified 07/21/19 10:11 SWELLING hydromorphone Allergy Mild RASH/ITCHIN Verified 07/21/19 10:11 G tramadol AdvReac Mild itch Verified 07/21/19 10:11 Home Medications Home Medications Medication Instructions Recorded Confirmed Type atorvastatin [Lipitor] 40 mg PO QPM 07/12/18 07/21/19 History clopidogrel [Plavix] 75 mg PO QPM 07/12/18 07/21/19 History gabapentin 300 mg PO TID 07/12/18 07/21/19 History hydroxyzine HCl 25 mg PO BID PRN 07/12/18 07/21/19 History pantoprazole [Protonix] 40 mg PO BID 07/12/18 07/21/19 History riboflavin (vitamin B2) 400 mg PO QPM 07/12/18 07/21/19 History duloxetine 60 mg PO QAM 10/16/18 07/21/19 History budesonide 1 mg INHALATION BID 05/16/19 07/21/19 History cholecalciferol (vitamin D3) 2,000 unit PO QAM 05/16/19 07/21/19 History [Vitamin D3] oxcarbazepine 300 mg PO BID 05/16/19 07/21/19 History ondansetron HCl 4 mg PO Q6H PRN 05/25/19 07/21/19 History venlafaxine 150 mg PO QAM 05/25/19 07/21/19 History albuterol sulfate 2 puff INHALATION Q4H PRN 07/21/19 07/21/19 History metformin 500 mg PO DAILY 07/21/19 07/21/19 History metoprolol succinate 50 mg PO BID 07/21/19 07/21/19 History Patient History Medical History Anxiety Asthma USES INH 1 X Q 2-3 MONTHS; LAST USED 1 MONTH AGO Chronic back pain Chronic headaches Chronic kidney disease FOLLOWS W/ DR. JASON Deep vein thrombosis LLE - COULD NOT RECALL DATE - REPORTS SHE WAS TREATED AT [facility] W/ BLOOD THINNERS Degenerative disc disease Depression GERD (gastroesophageal reflux disease) History of colon cancer 2012 S/P BOWEL RESECTION. Hyperlipidemia Hypertension Kidney stones Myocardial Infarction REPORTS [place] 4 MONTHS AGO --> [facility] -- CARDIAC CATH --> NO STENTS/ANGIOPLASTY PER PT REPORT -- POOR HISTORIAN? REPORTS SHE IS ON PLAVIX FOR HEART - DENIES STENTS - DENIES ARRHYTHMIA - FOLLOWS [facility]/ DR. TORRES Osteoarthritis Poor historian Surgical History H/O hand surgery RIGHT History of appendectomy History of bowel resection History of cardiac cath 4 MONTHS AGO - [place] - DENIES STENTS/ANGIOPLASTY - [facility] - FOLLOWS [facility]par[facility]/ DR. TORRES History of cataract surgery History of kidney surgery POOR HISTORIAN -- COULD NOT RECALL SPECIFICS. History of tooth extraction History of total abdominal hysterectomy and bilateral salpingo-oophorectomy Hx of cholecystectomy Family History Other No pertinent family history in first degree relatives Social History Preferred Language: Mongolian Communication Ability: Effective Is Consultant Required: No Beliefs That Will Affect Care: None marital status: Current Living Situation: Alone Other Information That Helps Us Care for You: No Feels Safe at Home: Yes Safety Concerns: Feels Safe At This Time Smoking Status: Never smoker Tobacco Type: cigarettes ; Do You Dip or Chew Tobacco: No ; Second Hand Exposure: No ; Tobacco Cessation Education Requested by Patient: No Hx Alcohol Use: No Hx Substance Use: No Review of Systems Review of Systems: All systems reviewed & are unremarkable except as noted in HPI & below Physical Exam Constitutional: WD/WN, vitals as above + obese; no acute distress Eyes: PERRL, conjunctivae normal, anicteric sclerae ENMT: external ear and nose normal, oropharynx normal Neck: trachea midline, no thyromegaly neck nontender Respiratory: normal percussion and + tachypneic; does not use accessory muscles Auscultation: + rales and + rhonchi Cardiovascular: Rate/Rhythm: regular rate and regular rhythm Heart Sounds: normal S1 and normal S2; no gallop, no murmur and no cardiac rub Vessels: normal peripheral pulses; no JVD Gastrointestinal (Abdomen): normal bowel sounds, soft, nontender, no hepatosplenomegaly Musculoskeletal: no cyanosis or clubbing, extremities motor strength 5/5 Spine: thoracic spine normal to inspection and lumbar spine normal to inspection; no cervical spinal tenderness Skin: no rashes, warm and dry normal turgor; no lesions Neurologic: patellar DTR's 2+ bilat, sensation intact no focal motor deficits Psychiatric: A+Ox3, euthymic affect Orientation: cooperative Lymphatic: no cervical or axillary lymphadenopathy no inguinal lymphadenopathy Results & Data Vital Signs (Past 12 Hours) Vital Signs Temp Pulse Pulse Resp BP Pulse Ox 07/24/19 07:49 72 07/24/19 07:42 36.9 C 80 19 124/81 99 07/24/19 07:22 76 18 99 07/24/19 03:25 36.8 C 73 18 119/82 95 07/24/19 01:33 76 07/23/19 23:18 36.7 C 78 18 112/64 97 Laboratory Results Short CBC 07/24/19 Range/Units 05:56 WBC 7.34 (4.8-10.8) K/uL Hgb 8.0 L (12.0-16.0) g/dL Hct 26.9 L (37-47) % Plt Count 215 (130-400) K/uL BMP 07/24/19 05:56 Sodium 143 Potassium 4.2 Chloride 111 H Carbon Dioxide 27 BUN 10 Creatinine 1.14 Glucose 121 H Calcium 9.1 Diagnostic Findings Microbiology 07/21/19 13:45 Blood Aerobic Blood Culture - Preliminary Coag neg staph not lugdunensis 07/21/19 13:45 Blood Anaerobic Blood Culture - Preliminary No growth in Anaerobic bottle after 48 hours. 07/21/19 14:07 Blood Aerobic Blood Culture - Preliminary Gram negative cocci 07/21/19 14:07 Blood Anaerobic Blood Culture - Preliminary No growth in Anaerobic bottle after 48 hours. 07/22/19 13:13 Blood Aerobic Blood Culture - Preliminary No growth in Aerobic bottle after 24 hours. 07/22/19 13:13 Blood Anaerobic Blood Culture - Preliminary No growth in Anaerobic bottle after 24 hours. 07/22/19 13:00 Blood Aerobic Blood Culture - Preliminary No growth in Aerobic bottle after 24 hours. 07/22/19 13:00 Blood Anaerobic Blood Culture - Preliminary No growth in Anaerobic bottle after 24 hours. cc: ~ XR chest 1V portable HISTORY: 63 years-old Female ams acutely altered mental status COMPARISON: Chest radiograph 05/25/2019, CT abdomen and pelvis 07/21/2019 TECHNIQUE: Portable AP view of the chest FINDINGS: Cardiac silhouette appears normal. Asymmetric right hilar prominence is noted with multifocal right greater than left reticular nodular opacities and bibasilar patchy consolidation. No pneumothorax or large pleural effusion. Degenerative changes of the shoulders and spine. IMPRESSION: Multifocal right greater than left reticular nodular opacities and bibasilar consolidation suggests multifocal pneumonia. Follow-up imaging after treatment course recommended to document resolution. The above report was generated using voice recognition software. It may contain grammatical, syntax or spelling errors. Electronically signed by: Mack Calderon M.D. 07/21/2019 11:35 AM PG Care Time/CCT Total # of Minutes Spent Total Time Spent with Patient: Total time spent is greater than 50% in coordination of care (as documented) at patient's floor/unit and/or counseling patient: (1) Pneumonia Laterality: bilateral Lung location: lower lobe of lung Pneumonia type: due to unspecified organism Qualified Code(s): J18.1 - Lobar pneumonia, unspecified organism
[2019-07-24] MEDS: ACETAMINOPHEN 1,000 MG/100 ML VIAL IV PRN ×2 (12:22→21:30)
--- NOTE | 2019-07-24 17:36 | Hospitalist Progress Note ---
Date of Service July 24, 2019 Assessment & Plan (1) Sepsis: Sepsis Bilateral multifocal pneumonia R/O Bacteremia CXR:Multifocal right greater than left reticular nodular opacities and bibasilar consolidation suggests multifocal pneumonia. Follow-up imaging after treatment course recommended to document resolution. Negative MRSA screen Blood cultures: Gram-negative cocci, Coag Neg Staph Repeat blood Cx:pending Lactate levels normalized IV vancomycin, Zosyn>>> transition to Zosyn Day #4 Received IV fluids ECHO reviewed Appreciate ID Input Continue supplemental oxygen as needed Dizziness No rhythm issues on monitor Negative orthostatics Monitor (2) Pneumonia: Management as above (3) COPD exacerbation: Chronic respiratory failure with hypoxia No signs of exacerbation Continue home inhalers continue supplemental oxygen (4) HTN (hypertension): Improved with IV fluids Continue current medications Monitor H/O NSTEMI Cardiac cath with normal coronaries in 2016 Continue Plavix, Lipitor (5) CKD (chronic kidney disease), stage III: Creatinine at baseline Monitor renal function Avoid nephrotoxic agents as able (6) Depression: No acute issues Continue home medications (7) Obesity hypoventilation syndrome: Continue CPAP Q Hs DM II Hold metformin Continue ISS Monitor BGs DVT Px: Heparin SQ CODE STATUS DNR/DNI Disposition: Patient refuses rehab and prefers home with Home health Subjective Patient is seen and examined at bedside No new complaints Continues to improve symptomatically cough, SOB better Blood Cx gram negative bacilli Review of Systems Review of Systems: All systems reviewed & are unremarkable except as noted in HPI & below Physical Exam Physical Exam: Physical Exam: Vitals signs as noted above General Appearance:Obese, no apparent distress Head: normocephalic, Atraumatic Eyes: normal inspection, EOMI Neck: supple, Trachea midline Respiratory/Chest: Decreased breath sounds, +Basal Crackles Cardiovascular: S1, S2, No murmur Abdomen/GI:Soft, Non tender, Bowel sounds present Extremities/Musculoskelatal:normal inspection, no edema Neurologic/Psych:AAOX3, grossly no focal neurological deficits Skin: normal color, warm Results & Data Vital Signs (Past 12 Hours) Vital Signs Temp Pulse Pulse Resp BP Pulse Ox 07/24/19 15:08 36.8 C 78 20 124/84 96 07/24/19 11:15 36.9 C 83 18 124/87 94 07/24/19 07:49 72 07/24/19 07:42 36.9 C 80 19 124/81 99 07/24/19 07:22 76 18 99 Laboratory Results Short CBC 07/24/19 Range/Units 05:56 WBC 7.34 (4.8-10.8) K/uL Hgb 8.0 L (12.0-16.0) g/dL Hct 26.9 L (37-47) % Plt Count 215 (130-400) K/uL BMP 07/24/19 05:56 Sodium 143 Potassium 4.2 Chloride 111 H Carbon Dioxide 27 BUN 10 Creatinine 1.14 Glucose 121 H Calcium 9.1 (1) Pneumonia Laterality: bilateral Lung location: lower lobe of lung Pneumonia type: due to unspecified organism Qualified Code(s): J18.1 - Lobar pneumonia, unspecified organism
[2019-07-24] MEDS: CLOPIDOGREL BISULFATE 75 MG TAB PO SCH (21:25)
[2019-07-24] MEDS: ATORVASTATIN 40 MG TAB PO SCH (21:25)
[2019-07-25] MEDS: PIPERACILLIN/TAZOBACTAM 4.5 GM in DEXTROSE 5% 100 ML IV SCH ×3 (01:25→18:15)
[2019-07-25 05:31] LABS: Hematocrit (blood only) 26.7 % (37-47); Hemoglobin 8.2 g/dL (12.0-16.0); Mean Corpuscular Hemoglobin 28.6 pg (25-34); Mean Corpuscular Hgb Conc 30.7 g/dL (32-36); Mean Platelet Volume 9.8 fL (7.4-10.4); Platelet Count 225 K/uL (130-400); RDW Coefficient of Variation 14.8 % (11.5-14.5); RDW Standard Deviation 50.5 fL (36.4-46.3); Red Blood Count 2.87 M/uL (4.2-5.4); White Blood Count 7.72 K/uL (4.8-10.8)
[2019-07-25] MEDS: HEPARIN SOD 5,000 UNIT/0.5 ML VIAL SQ SCH ×3 (05:37→21:08)
[2019-07-25 06:08] LABS: Calcium 8.7 mg/dl (8.5-10.1); Creatinine Clr Calc Pharmacy 47.8 ml/min; Est GFR (Non-African American) 39.7; Potassium 3.8 mmol/L (3.5-5.1)
[2019-07-25] MEDS: BUDESONIDE 0.5 MG/2 ML VIAL (PULMICORT) INH SCH ×2 (07:02→19:26)
[2019-07-25] MEDS: ALBUT/IPRATROP 3MG/0.5MG NEB 3 ML VIAL NEB SCH (07:02)
[2019-07-25] MEDS ORDERED: ALBUT/IPRATROP 3MG/0.5MG NEB 3 ML VIAL NEB PRN (07:46)
[2019-07-25] MEDS: ACETAMINOPHEN 325 MG TAB PO PRN ×2 (08:24→19:25)
[2019-07-25] MEDS: SODIUM CHLORIDE 0.9% 500 ML IV SCH ×2 (08:26→14:24)
[2019-07-25] MEDS: VENLAFAXINE HCL XR 150 MG CAPXR PO SCH (08:27)
[2019-07-25] MEDS: CHOLECALCIFEROL 1,000 UNITS TAB PO SCH (08:27)
[2019-07-25] MEDS: PANTOprazole 40 MG TAB PO SCH ×2 (08:27→21:06)
[2019-07-25] MEDS: METOPROLOL SUCC 50MG EXT REL TAB PO SCH ×2 (08:27→21:06)
[2019-07-25] MEDS: GABAPENTIN 300 MG CAP PO SCH ×3 (08:27→21:06)
[2019-07-25] MEDS: OXcarbazepine 150 MG TABLET PO SCH ×2 (08:28→21:06)
[2019-07-25] MEDS: DULOXETINE HCL 60 MG CAP PO SCH (08:28)
[2019-07-25] MEDS: INSULIN ASPART 100 UNITS/ML 3 ML PEN SC SCH ×4 (09:36→21:09)
--- NOTE | 2019-07-25 10:45 | Hospitalist Progress Note ---
Date of Service July 25, 2019 Assessment & Plan (1) Sepsis: Sepsis secondary to Bilateral multifocal pneumonia -admission Chest X ray 07/21/19 Multifocal right greater than left reticular nodular opacities and bibasilar consolidation suggests multifocal pneumonia -admission Blood cultures from 07/21/19 positive for bacteremia of Coag neg staph not lugdunensis; and gram negative cocci -blood cultures from 07/22/19 no growth to date -was on IV vancomycin and Zosyn and currently on Zosyn alone; continue Zosyn for now -repeat Chest X ray ordered on 07/25/19 (2) Pneumonia: -Management as above of multifocal pneumonia, bilateral lung mcclellan Chest Pain -History of NSTEMI in the past; Cardiac cath with normal coronaries in 2016 -chest pain may be pleuritic chest pain from pneumonia -Echocardiogram 07/24/19 with normal ejection fraction -troponin negative -Continue Plavix, Lipitor, beta velma (3) COPD exacerbation: -Chronic respiratory failure with hypoxia -on 2 liters/minute which is baseline oxygenation -Continue home inhalers -no acute exacerbation of COPD at this time (4) Obesity hypoventilation syndrome: -Continue CPAP at night Dizziness -resolved (5) CKD (chronic kidney disease), stage III: acute kidney injury on chronic kidney disease stage III -rise in creatinine as 1.39 which is above baseline on 07/25/19; IV fluids being given -monitor renal function Reported history of Hypertension -blood pressure is controlled Diabetes Mellitus Type 2 without long term care social worker current use of insulin -hold metformin -give sliding scale insulin as needed while hospitalized (6) Depression: -No acute issues -Continue home medications DVT Px: Heparin SQ CODE STATUS DNR/DNI Disposition: Patient refused rehab and prefers home with Home health Subjective Patient seen and examined at bedside. She had previously reported to the nurse of chest discomfort this AM but troponin negative and EKG does not appear to be ischemic. Patient did not report of chest discomforts when seen by physician. Is on 2 liters/minute which is baseline oxygenation. Denies acute shortness of breath. IV fluids are running because of mild acute kidney injury on labs. IV Zosyn running. Patient reports she has been able to ambulate Physical Exam Constitutional: comfortable Eyes: PERRL, conjunctivae normal, anicteric sclerae EOM intact bilaterally ENMT: external ear and nose normal, oropharynx normal Neck: normal visual inspection Cardiovascular: Rate/Rhythm: regular rate and regular rhythm Gastrointestinal (Abdomen): normal bowel sounds, soft, nontender, no hepatosplenomegaly Musculoskeletal: Head/Neck/Chest: normocephalic and head atraumatic Neurologic: PERRL, EOMI, accommodation nl, no face palsy, no dysarthria Psychiatric: A+Ox3, euthymic affect Results & Data Vital Signs (Past 12 Hours) Vital Signs Temp Pulse Resp BP Pulse Ox 07/25/19 07:34 36.7 C 87 20 139/84 96 07/25/19 07:02 75 18 95 07/24/19 23:02 36.8 C 85 20 130/77 96 (1) Pneumonia Laterality: bilateral Lung location: lower lobe of lung Pneumonia type: due to unspecified organism Qualified Code(s): J18.1 - Lobar pneumonia, unspecified organism
--- NOTE | 2019-07-25 11:32 | XRay Report ---
XR chest 2V PA/lateral CLINICAL HISTORY: 63 years-old Female presenting with follow up lung infiltrates. TECHNIQUE: PA and lateral views of the chest were obtained. COMPARISON: 07/21/2019. FINDINGS: Cardiomediastinal silhouette normal. Pulmonary vascular prominence slightly decreased from prior. Dif fuse reticulonodular opacities with a basilar predominance have also decreased. Diffuse added density of the lungs slightly decreased. Small right pleural effusion new from prior. No pneumothorax. Mildl y exaggerated thoracic kyphosis with mild height loss at one of the mid to lower thoracic vertebral b odies. This is unchanged from May. Cholecystectomy clips noted. IMPRESSION: 1. Decreasing bilateral pulmonary infiltrates, which could be compatible with resolving multifocal p neumonia. This is likely accompanied by decreasing congestive changes in the lungs. 2. Small right parapneumonic pleural effusion new from prior. Electronically signed by: Tino Butcher M.D. 07/25/2019 11:30 AM
[2019-07-25] MEDS ORDERED: TRAMADOL HCL 50 MG TABLET PO STA (21:04)
[2019-07-25] MEDS: CLOPIDOGREL BISULFATE 75 MG TAB PO SCH (21:06)
[2019-07-25] MEDS: ATORVASTATIN 40 MG TAB PO SCH (21:06)
[2019-07-26] MEDS: PIPERACILLIN/TAZOBACTAM 4.5 GM in DEXTROSE 5% 100 ML IV SCH (02:04)
[2019-07-26] MEDS: HEPARIN SOD 5,000 UNIT/0.5 ML VIAL SQ SCH (05:50)
[2019-07-26 06:03] LABS: Basophils # (auto) 0.03 K/uL (0-0.2); Basophils % (auto) 0.4 %; Eosinophils # (auto) 0.43 K/uL (0-0.5); Eosinophils % (auto) 5.9 %; Hematocrit (blood only) 28.7 % (37-47); Hemoglobin 8.8 g/dL (12.0-16.0); Immature Granulocytes # (auto) 0.14 K/uL (0.00-0.02); Immature Granulocytes % (auto) 1.9 %; Lymphocytes % (auto) 23.5 %; Mean Corpuscular Hemoglobin 28.5 pg (25-34); Mean Corpuscular Hgb Conc 30.7 g/dL (32-36); Mean Corpuscular Volume 92.9 fL (80-100); Monocytes # (auto) 0.65 K/uL (0.11-0.59); Neutrophils # (auto) 4.29 K/uL (1.4-6.5); Neutrophils % (auto) 59.3 %; Platelet Count 247 K/uL (130-400); RDW Coefficient of Variation 14.8 % (11.5-14.5); RDW Standard Deviation 50.4 fL (36.4-46.3); Red Blood Count 3.09 M/uL (4.2-5.4); White Blood Count 7.24 K/uL (4.8-10.8)
[2019-07-26 06:44] LABS: Albumin Level 2.5 gm/dl (3.4-5.0); BUN Creatinine Ratio 9.8 (10-20); Calcium 8.9 mg/dl (8.5-10.1); Creatinine Clr Calc Pharmacy 59.4 ml/min; Est GFR (African American) 59.7; Est GFR (Non-African American) 51.5; Potassium 3.9 mmol/L (3.5-5.1)
[2019-07-26 06:47] LABS: Albumin Globulin Ratio 0.6 (0.9-2); Bilirubin,Total 0.5 mg/dl (0.2-1); Globulin 4.2 gm/dl (2.5-4.0); Total Protein 6.7 gm/dl (6.4-8.2)
[2019-07-26] MEDS: BUDESONIDE 0.5 MG/2 ML VIAL (PULMICORT) INH SCH (06:51)
[2019-07-26] MEDS: ACETAMINOPHEN 325 MG TAB PO PRN (07:44)
[2019-07-26] MEDS ORDERED: AMOXICILLIN/CLAVULANATE 875 MG TAB PO ONE (09:15)
[2019-07-26] MEDS: DULOXETINE HCL 60 MG CAP PO SCH (09:26)
[2019-07-26] MEDS: OXcarbazepine 150 MG TABLET PO SCH (09:26)
[2019-07-26] MEDS: GABAPENTIN 300 MG CAP PO SCH (09:27)
[2019-07-26] MEDS: METOPROLOL SUCC 50MG EXT REL TAB PO SCH (09:27)
[2019-07-26] MEDS: VENLAFAXINE HCL XR 150 MG CAPXR PO SCH (09:27)
[2019-07-26] MEDS: PANTOprazole 40 MG TAB PO SCH (09:27)
[2019-07-26] MEDS: CHOLECALCIFEROL 1,000 UNITS TAB PO SCH (09:27)
[2019-07-26] MEDS: INSULIN ASPART 100 UNITS/ML 3 ML PEN SC SCH (09:28)
--- NOTE | 2019-07-26 10:24 | Hospitalist Progress Note ---
Date of Service July 26, 2019 Assessment & Plan (1) Sepsis: Sepsis secondary to Bilateral multifocal pneumonia -admission Chest X ray 07/21/19 Multifocal right greater than left reticular nodular opacities and bibasilar consolidation suggests multifocal pneumonia -admission Blood cultures from 07/21/19 positive for bacteremia of Coag neg staph not lugdunensis; and gram negative cocci -blood cultures from 07/22/19 no growth to date -was on IV vancomycin and Zosyn and then transitioned to Zosyn alone -repeat Chest X ray ordered on 07/25/19 which showed improvements of the pneumonia with Decreasing bilateral pulmonary infiltrates, Small right parapneumonic pleural effusion -07/26/19 Zosyn stopped, transition to oral Augmentin 07/26/19 Discharge Instructions: -Discharge to home with [facility] services -Patient may continue home oxygen of 2 liters/minute -Discharge Medications of amoxicillin/clavulanate (Augmentin 875mg/125mg) twice a day for 7 more days for pneumonia and lisinopril 2.5 mg daily for hypertension in the context of diabetes mellitus with chronic kidney disease have been sent electronically to [address] [place], [place] [address] -Follow up appointment 08/01/2019 9:00 AM Provider Joshua Carvajal MD Department Internal Medicine [facility] (Primary care doctor should follow up Blood culture 07/21/19 sensitivity of Gram negative cocci. Primary care doctor may perform repeat chest X ray at conclusion of antibiotic course for pneumonia) (2) Pneumonia: -Management as above of multifocal pneumonia, bilateral lung [place] Chest Pain -History of NSTEMI in the past; Cardiac cath with normal coronaries in 2016 -chest pain may be pleuritic chest pain from pneumonia -Echocardiogram 07/24/19 with normal ejection fraction -troponin negative -Continue Plavix, Lipitor, beta velma (3) COPD exacerbation: Chronic respiratory failure with hypoxia -on 2 liters/minute which is baseline oxygenation -Continue home inhalers -no acute exacerbation of COPD at this time (4) Obesity hypoventilation syndrome: -Continue CPAP at night Dizziness -resolved (5) CKD (chronic kidney disease), stage III: acute kidney injury on chronic kidney disease stage III -rise in creatinine as 1.39 which is above baseline on 07/25/19; IV fluids were given -baseline renal function on 07/26/19 and acute kidney injury resolved monitor renal function Hypertension -lisinopril 2.5 mg daily for hypertension in the context of diabetes mellitus with chronic kidney disease Diabetes Mellitus Type 2 without tank terminal gauger current use of insulin -give sliding scale insulin as needed while hospitalized -can resume home dose metformin on discharge (6) Depression: -No acute issues -Continue home medications DVT Px: Heparin SQ while in the hospital CODE STATUS DNR/DNI Discharge Diagnosis: Sepsis secondary to Bilateral multifocal pneumonia, Chronic respiratory failure with hypoxia, acute kidney injury on chronic kidney disease stage III, Diabetes Mellitus Type 2 without tank terminal gauger current use of insulin, hypertension Subjective Patient breathing at baseline oxygen of 2 liters/minute. denies labored breathing. no chest pain. no abdomen pain. no vomiting. no dizziness. no lightheadedness. discharge plans discussed at length Physical Exam Constitutional: comfortable Eyes: PERRL, conjunctivae normal, anicteric sclerae EOM intact bilaterally ENMT: external ear and nose normal, oropharynx normal Neck: normal visual inspection Respiratory: normal respiratory effort (on baseline oxygen of 2 liters/minute) Auscultation: + crackles (mild crackles) Cardiovascular: Rate/Rhythm: regular rate and regular rhythm Gastrointestinal (Abdomen): normal bowel sounds, soft, nontender, no hepatosplenomegaly Musculoskeletal: Head/Neck/Chest: normocephalic and head atraumatic Neurologic: PERRL, EOMI, accommodation nl, no face palsy, no dysarthria Psychiatric: A+Ox3, euthymic affect Results & Data Vital Signs (Past 12 Hours) Vital Signs Temp Pulse Resp BP BP Pulse Ox 07/26/19 08:15 36.4 C L 74 16 138/92 96 07/26/19 06:52 74 16 95 07/25/19 22:24 37 C 82 16 102/68 94 (1) Pneumonia Laterality: bilateral Lung location: lower lobe of lung Pneumonia type: due to unspecified organism Qualified Code(s): J18.1 - Lobar pneumonia, unspecified organism
--- NOTE | 2019-07-26 10:34 | Discharge Summary ---
Date of Service July 26, 2019 Admission HPI Per Admitting Provider She is a 63-year-old obese female with significant past medical history including COPD/asthma on home oxygen, CKD stage III, hypertension, hyperlipidemia, depression, GERD and history of colon cancer was brought into the emergency room with a history of fall early this morning around 4 AM. She lives alone and she was not wearing her oxygen and while she was getting out of bed and with the bathroom she had a fall. She was on the floor for some time until this morning and she could not get up due to weakness and tiredness. She has been complaining of bilateral leg weakness and with dizziness on ambulation for a day or 2. Denies any cough but complains to have some shortness of breath. She feels same shaky and cold at times but denies any fever and/or chills. In the emergency room she was noted to be tachycardic at presentation with a white count of 21,000 and chest x-ray did show bilateral multifocal pneumonia and the lactic was 2.4. She was started with cautious amount of IV fluid and intravenous Vanco and Zosyn and was admitted to telemetry unit for continuation of care. Admission Exam Per Admitting Provider Physical Exam: Lying in bed without significant distress Constitutional: well developed, well nourished, + ill appearing and + obese; no acute distress Eyes: PERRL, conjunctivae normal, anicteric sclerae ENMT: external ear and nose normal, oropharynx normal Neck: trachea midline, no thyromegaly Respiratory: normal respiratory effort and + respiratory distress (Minimal shortness of breath at rest) Auscultation: + diminished lung sounds and + crackles (Bibasilar crackles more on the right than the left) Cardiovascular: Rate/Rhythm: regular rate and regular rhythm Heart Sounds: no murmur Gastrointestinal (Abdomen): Inspection/Auscultation: abdomen normal to inspection and normal bowel sounds Percussion/Palpation: abdomen soft Musculoskeletal: No acute arthritis in any of the joints Neurologic: moves all extremities; no focal motor deficits Has occasional shakes involving the upper extremities which was noted during her last admission. She remains drowsy but otherwise alert, awake and oriented Lymphatic: no cervical or axillary lymphadenopathy Principal Diagnosis Sepsis secondary to Bilateral multifocal pneumonia, Chronic respiratory failure with hypoxia, acute kidney injury on chronic kidney disease stage III, Diabetes Mellitus Type 2 without buttermaker continuous churn current use of insulin, hypertension Discharge Exam Constitutional comfortable Eyes PERRL, conjunctivae normal, anicteric sclerae EOM intact bilaterally ENMT external ear and nose normal, oropharynx normal Neck normal visual inspection Respiratory normal respiratory effort (on baseline oxygen of 2 liters/minute) Auscultation: + crackles (mild crackles) Cardiovascular Rate/Rhythm: regular rate and regular rhythm Gastrointestinal (Abdomen) normal bowel sounds, soft, nontender, no hepatosplenomegaly Musculoskeletal Head/Neck/Chest: normocephalic and head atraumatic Neurologic PERRL, EOMI, accommodation nl, no face palsy, no dysarthria Psychiatric A+Ox3, euthymic affect Discharge Data Allergies Allergy/AdvReac Type Severity Reaction Status Date / Time salicylates Allergy Severe SHORTNESS Verified 07/21/19 10:11 OF BREATH Iodinated Contrast Media Allergy Intermediate EYES Verified 07/21/19 10:11 SWELLING meperidine Allergy Intermediate ITCH Verified 07/21/19 10:11 morphine Allergy Intermediate ITCH Verified 07/21/19 10:11 aspirin Allergy Mild FACIAL Verified 07/21/19 10:11 SWELLING hydromorphone Allergy Mild RASH/ITCHIN Verified 07/21/19 10:11 G tramadol AdvReac Mild itch Verified 07/21/19 10:11 Consultations 07/21/19 13:08 ED Decision to Admit Stat 07/21/19 14:41 Consult Case Management - Discharge Planning Routine 07/23/19 14:55 Consult Infectious Diseases Routine Ordered Studies 07/21/19 09:35 CT abd pelvis wo con Stat CT head/brain wo con Stat Hospital Course (1) Sepsis: Sepsis secondary to Bilateral multifocal pneumonia -admission Chest X ray 07/21/19 Multifocal right greater than left reticular nodular opacities and bibasilar consolidation suggests multifocal pneumonia -admission Blood cultures from 07/21/19 positive for bacteremia of Coag neg staph not lugdunensis; and gram negative cocci -blood cultures from 07/22/19 no growth to date -was on IV vancomycin and Zosyn and then transitioned to Zosyn alone -repeat Chest X ray ordered on 07/25/19 which showed improvements of the pneumonia with Decreasing bilateral pulmonary infiltrates, Small right parapneumonic pleural effusion -07/26/19 Zosyn stopped, transition to oral Augmentin 07/26/19 Discharge Instructions: -Discharge to home with [facility] health services -Patient may continue home oxygen of 2 liters/minute -Discharge Medications of amoxicillin/clavulanate (Augmentin 875mg/125mg) twice a day for 7 more days for pneumonia and lisinopril 2.5 mg daily for hypertension in the context of diabetes mellitus with chronic kidney disease have been sent electronically to [address] [place] [address] -Follow up appointment 08/01/2019 9:00 AM Provider Joshua Carvajal MD Department Internal Medicine [facility] (Primary care doctor should follow up Blood culture 07/21/19 sensitivity of Gram negative cocci. Primary care doctor may perform repeat chest X ray at conclusion of antibiotic course for pneumonia) (2) Pneumonia: -Management as above of multifocal pneumonia, bilateral lung mcclellan Chest Pain -History of NSTEMI in the past; Cardiac cath with normal coronaries in 2016 -chest pain may be pleuritic chest pain from pneumonia -Echocardiogram 07/24/19 with normal ejection fraction -troponin negative -Continue Plavix, Lipitor, beta velma (3) COPD exacerbation: Chronic respiratory failure with hypoxia -on 2 liters/minute which is baseline oxygenation -Continue home inhalers -no acute exacerbation of COPD at this time (4) Obesity hypoventilation syndrome: -Continue CPAP at night Dizziness -resolved (5) CKD (chronic kidney disease), stage III: acute kidney injury on chronic kidney disease stage III -rise in creatinine as 1.39 which is above baseline on 07/25/19; IV fluids were given -baseline renal function on 07/26/19 and acute kidney injury resolved monitor renal function Hypertension -lisinopril 2.5 mg daily for hypertension in the context of diabetes mellitus with chronic kidney disease Diabetes Mellitus Type 2 without senior living current use of insulin -give sliding scale insulin as needed while hospitalized -can resume home dose metformin on discharge (6) Depression: -No acute issues -Continue home medications DVT Px: Heparin SQ while in the hospital CODE STATUS DNR/DNI Discharge Diagnosis: Sepsis secondary to Bilateral multifocal pneumonia, Chronic respiratory failure with hypoxia, acute kidney injury on chronic kidney disease stage III, Diabetes Mellitus Type 2 without senior living current use of insulin, hypertension Total Time Total Time Spent Total Time Spent (In Minutes): 40 minutes Total Time Includes: Examination of the Patient, Discharge Planning, Medication Reconciliation and Communication With Other Providers Discharge Plan Discharge Items Patient Disposition: Home - Home Health Services Reason For Visit: SEPSIS, PNEUMONIA Discharge Diagnosis: Sepsis secondary to Bilateral multifocal pneumonia, Chronic respiratory failure with hypoxia, acute kidney injury on chronic kidney disease stage III, Diabetes Mellitus Type 2 without buttermaker continuous churn current use of insulin, hypertension Condition on Discharge: Good Activity: Resume your previous activity Non-emergency contact: Primary Care Provider Call non-emergency contact if: you have any medication questions Follow-up/Referrals: Toño Naidu MD [Primary Care Provider] - Diet: Carb Consistent or DM2 Addtl Attending Provider Instructions: Discharge to home with [facility] health services Patient may continue home oxygen of 2 liters/minute Discharge Medications of amoxicillin/clavulanate (Augmentin 875mg/125mg) twice a day for 7 more days for pneumonia and lisinopril 2.5 mg daily for hypertension in the context of diabetes mellitus with chronic kidney disease have been sent electronically to [address] [place] [address] Follow up appointment 08/01/2019 9:00 AM Provider Joshua Carvajal MD Department Internal Medicine [facility] (Primary care doctor should follow up Blood culture 07/21/19 sensitivity of Gram negative cocci. Primary care doctor may perform repeat chest X ray at conclusion of antibiotic course for pneumonia) Pending Studies at Discharge: Yes Studies:: Blood culture 07/21/19 sensitivity of Gram negative cocci Stand-Alone Forms: My [facility] Medications and DC Order Prescriptions: New lisinopril 2.5 mg Tablet 2.5 mg PO QAM 30 Days Qty: 30 RF: 0 amoxicillin-pot clavulanate 875-125 mg Tablet 1 tab PO BIDM 7 Days Qty: 14 RF: 0 Continued metoprolol succinate 50 mg tablet extended release 24 hr 50 mg PO BID RF: 0 albuterol sulfate 90 mcg/actuation Hfa Aerosol Inhaler 2 puff INHALATION Q4H PRN (Reason: Shortness Of Breath) RF: 0 metformin 500 mg tablet 500 mg PO DAILY RF: 0 atorvastatin [Lipitor] 40 mg Tablet 40 mg PO QPM RF: 0 clopidogrel [Plavix] 75 mg Tablet 75 mg PO QPM RF: 0 pantoprazole [Protonix] 40 mg Tablet,Delayed Release (Dr/Ec) 40 mg PO BID RF: 0 gabapentin 300 mg Capsule 300 mg PO TID RF: 0 hydroxyzine HCl 25 mg Tablet 25 mg PO BID PRN (Reason: Anxiety) RF: 0 riboflavin (vitamin B2) 400 mg Tablet 400 mg PO QPM RF: 0 duloxetine 60 mg Capsule,Delayed Release(Dr/Ec) 60 mg PO QAM RF: 0 oxcarbazepine 300 mg tablet 300 mg PO BID RF: 0 budesonide 1 mg/2 mL suspension for nebulization 1 mg inhalation BID RF: 0 cholecalciferol (vitamin D3) [Vitamin D3] 2,000 unit Capsule 2,000 unit PO QAM RF: 0 ondansetron HCl 4 mg tablet 4 mg PO Q6H PRN (Reason: Nausea) RF: 0 venlafaxine 150 mg Capsule,Extended Release 24hr 150 mg PO QAM RF: 0 Discharge Orders: Discharge Order (Routine); Ordered 07/26/19 Ordered By: Chris Cabello Admission Data Admit Date/Time: 07/21/19 13:09 Attending Provider: Chris Cabello Admit Provider: Annette Modi Primary Care Provider: Toño Naidu Other Providers: Annette Modi ; Chintan Mendoza
[2019-07-26] MEDS ORDERED: AMOXICILLIN/CLAVULANATE 875 MG TAB PO SCH (17:00)
== END 2019-07-26 13:00 | disposition home health service (06) | DRG 871 ==
LOC: ED 09:18 → SUATTDRO 13:09 → 2S 14:14 → SUATTDRO 14:22 → 3N 07-24 10:21

== ENCOUNTER 2019-11-30 19:06 | Inpatient (IN) ==
[2019-11-30] MEDS ORDERED: ONDANSETRON INJ 2 MG/ML 2 ML VIAL IV STA (19:27)
[2019-11-30] MEDS ORDERED: SODIUM CHLORIDE 0.9% 1000ML 1,000 ML IV SCH (19:30)
[2019-11-30 19:37] LABS: Basophils # (auto) 0.03 K/uL (0-0.2); Basophils % (auto) 0.3 %; Eosinophils # (auto) 0.39 K/uL (0-0.5); Eosinophils % (auto) 4.1 %; Hematocrit (blood only) 39.7 % (37-47); Hemoglobin 12.6 g/dL (12.0-16.0); Immature Granulocytes # (auto) 0.04 K/uL (0.00-0.02); Immature Granulocytes % (auto) 0.4 %; Lymphocytes # (auto) 2.23 K/uL (1.2-3.4); Lymphocytes % (auto) 23.2 %; Mean Corpuscular Hemoglobin 30.4 pg (25-34); Mean Corpuscular Hgb Conc 31.7 g/dL (32-36); Mean Corpuscular Volume 95.9 fL (80-100); Mean Platelet Volume 10.9 fL (7.4-10.4); Monocytes # (auto) 0.87 K/uL (0.11-0.59); Monocytes % (auto) 9.1 %; Neutrophils # (auto) 6.04 K/uL (1.4-6.5); Neutrophils % (auto) 62.9 %; Platelet Count 273 K/uL (130-400); RDW Coefficient of Variation 13.8 % (11.5-14.5); RDW Standard Deviation 48.5 fL (36.4-46.3); Red Blood Count 4.14 M/uL (4.2-5.4)
--- NOTE | 2019-11-30 19:39 | XRay Report ---
XR chest 1V portable HISTORY: 64 years-old Female weakness acute weakness COMPARISON: Chest radiograph 07/25/2019 TECHNIQUE: Portable AP view of the chest FINDINGS: Cardiomediastinal and hilar silhouettes are within normal limits. Areas of chronic appearing intersti tial coarsening are noted without pneumothorax, pleural effusion or overt pulmonary edema. No lobar a irspace consolidation. Degenerative changes of the shoulders and spine. Possible hiatal hernia. IMPRESSION: Chronic interstitial coarsening without acute process. ACT 112: Negative or not required by law. The above report was generated using voice recognition software. It may contain grammatical, syntax o r spelling errors. Electronically signed by: Mack Calderon M.D. 11/30/2019 7:37 PM
[2019-11-30 20:01] LABS: Alanine Aminotransferase 44 U/L (12-78); Albumin Level 3.1 gm/dl (3.4-5.0); Aspartate Aminotransferase 53 U/L (15-37); BUN Creatinine Ratio 9.9 (10-20); Blood Urea Nitrogen 16 mg/dl (7-18); Calcium 9.4 mg/dl (8.5-10.1); Carbon Dioxide 24 mmol/L (21-32); Chloride 109 mmol/L (98-107); Creatinine Clr Calc Pharmacy 37.3 ml/min; Est GFR (African American) 39.4; Glucose 144 mg/dl (70-99); Magnesium 2.1 mg/dl (1.8-2.4); Potassium 3.9 mmol/L (3.5-5.1); Sodium 139 mmol/L (136-145)
[2019-11-30 20:12] LABS: Albumin Globulin Ratio 0.6 (0.9-2); Alkaline Phosphatase 160 U/L (45-117); Bilirubin,Total 0.3 mg/dl (0.2-1); NT Pro B Type Natriuretic Pept 41 pg/ml (0-900); Total Protein 8.1 gm/dl (6.4-8.2); Troponin I < 0.015 ng/ml (0-0.045)
--- NOTE | 2019-11-30 20:28 | CT Scan Report ---
ABDOMEN AND PELVIS CT WITHOUT CONTRAST CT DOSE: 1245.97 mGy.cm HISTORY: Acute left-sided flank pain with vomiting left flank pain, vomiting. hx of stones and pyel o TECHNIQUE: Multiaxial CT images of the abdomen and pelvis were performed without contrast. A dose lo wering technique was utilized adhering to the principles of ALARA. COMPARISON STUDY: CT abdomen and pelvis 07/21/2019 FINDINGS: Calcified pierre limit of the lung bases. There is symmetric subpleural reticulation with groundglass d ensities of the left lung base suggest probable atelectasis/scarring. There are a few nodular foci of the inferior segment lingula measuring up to 4 mm which are likely benign. No pneumatosis or pneumop eritoneum. Imaged inferior cardiac chambers are unremarkable. Limited evaluation of the solid abdomin al organs without the use of IV contrast. There is suggestion of mild hepatic steatosis. No focal hepatic mass lesion or evidence of cirrhosis. Spleen measures the upper limits of normal in size. Pancreas and adrenal glands are unremarkable. Ch olecystectomy. Probable cyst of the anterior interpolar right kidney, 1.5 cm. There are least 3 nonobstructing calcu li of the right kidney measuring up to 4 mm. Atrophy with multifocal cortical scarring and parenchyma l thinning of the left kidney redemonstrated with multiple parenchymal calcifications. Calcifications of the inferior pole left kidney redemonstrated measuring up to approximately 1.5 cm. Large cyst of the superior pole left kidney measures up to at least 8 cm. There are no ureteral calculi or obstruct jeffry uropathy identified. Mild urothelial thickening of the inferior pole left kidney is suggested. Wa ll thickening of the urinary bladder with partial distention. Hysterectomy. No adnexal mass lesion. Aorta and IVC are unremarkable. There is no adenopathy. Moderate hiatal hernia. No bowel obstruction or bowel wall thickening. Postoperative changes from prior subtotal colectomy. Diastases recti with m ultiple small fat filled ventral abdominal wall hernias. Portions of small bowel partially extend int o several the hernia is. Atrophy of the rectus sheath. Degenerative changes of the spine. IMPRESSION: 1. No ureteral calculi or obstructive uropathy. 2. Left greater and right nonobstructing bilateral nephrolithiasis with chronic changes of the left k idney redemonstrated. Additionally, there is suggestion of mild urothelial thickening of the inferior pole left kidney. Correlate with urinalysis. 3. Moderate hiatal hernia. 4. No bowel obstruction or bowel wall thickening. 5. Multiple bowel and fat filled ventral abdominal wall hernias redemonstrated. 6. Additional findings as above. ACT 112: Negative or not required by law. The above report was generated using voice recognition software. It may contain grammatical, syntax o r spelling errors. Electronically signed by: Mack Calderon M.D. 11/30/2019 8:27 PM
[2019-11-30 20:58] LABS: Appearance Urine Turbid (Clear); Bacteria Urine Automated 4+ (Negative); Bilirubin Urine Negative (Negative); Blood Urine 1+ (Negative); Color Urine Dark Yellow; Epithelial Cell Urine Auto 20-30 /lpf (0-5); Glucose Urine UA Negative (Negative); Ketones Urine Negative (Negative); Leukocyte Esterase Urine 2+ (Negative); Nitrite Urine Positive (Negative); Protein Urine 2+ (Negative); RBC Urine Automated 0-4 /hpf (0-4); Specific Gravity Urine 1.023 (1.000-1.030); Urobilinogen Urine Negative (Negative); WBC Urine Automated >30 /hpf (0-5); pH Urine 5.5 (4.5-7.5)
[2019-11-30 21:34] LABS: Cast Urine Automated 0 /lpf (0-5)
[2019-11-30] MEDS ORDERED: cefTRIAXone SODIUM 2,000 MG/70 ML BAG IV STA (21:55)
[2019-12-01] MEDS ORDERED: fentaNYL citrate 100 MCG/2 ML VIAL IV STA (00:08)
[2019-12-01] MEDS ORDERED: DiphenhydrAMINE HCL 50 MG/ML VIAL IV STA (01:38)
--- NOTE | 2019-12-01 02:16 | Emergency Department Note ---
Entered by Lo Camacho acting as a scribe for Kyler Cam MD ED Provider Note CHIEF COMPLAINT: Illness HISTORY OF PRESENT ILLNESS: The patient is a 64 year old female who presents to the Emergency Room with complaints of generalized illness. 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 Pt denies LOC, headache, chills, diaphoresis, visual changes, neck pain, chest pain, melena, hematochezia, urinary symptoms, numbness, tingling, lymphadenopathy, rash, or other complaints. REVIEW OF SYSTEMS: See HPI for pertinent positives and negatives. A total of ten systems were reviewed and were otherwise negative. PMHx/PSHx: CHF, COPD, HTN, DM, chronic renal insufficiency, bladder infection spreading to kidney, kidney stones SOCIAL HISTORY: Patient lives at home. PHYSICAL EXAM: GENERAL: Awake, alert, uncomfortable and tired-appearing, in no distress HENT: Normocephalic, atraumatic. Oropharynx unremarkable. EYES: PERRL. Normal conjunctiva. Sclera non-icteric. NECK: Inspection normal. Non-tender. Supple. No nuchal rigidity. FROM. No masses. RESPIRATORY: Clear to auscultation. No wheezes. No rales. Normal respiratory effort. CARDIAC: Borderline tachycardic rate. Normal rhythm. No murmurs. No rubs. Extremities warm and well perfused. Pulses equal. No JVD. GI: Soft, non-distended. No tenderness to palpation. No rebound or guarding. No masses. RECTAL: Deferred. MUSCULOSKELETAL: Atraumatic. Chest examination reveals no tenderness. The back is symmetrical on inspection without obvious abnormality. There is left CVA tenderness to palpation. No joint edema. LOWER EXTREMITIES: Calves are equal size bilaterally and non-tender. No edema. No discoloration. NEURO: Normal sensorium. No sensory or motor deficits noted. SKIN: No rash or jaundice noted. EMERGENCY DEPARTMENT COURSE: 1921: Past medical records reviewed. The patient was evaluated in room C02B, and a complete history and physical examination were performed. 1923: The patient was placed on a phototypesetting equipment monitor. 2299: I spoke with Dr. Stack, [facility] Hospitalist who will further evaluate the patient. 2304: I checked on the patient and updated her. The patient verbally expressed understanding and agreement of the treatment plan. The patient will be evaluated for further treatment. MEDICAL DECISION MAKING: Prior records/ancillary studies reviewed. Prior urinary culture revealed a pansensitive E. coli. Triage Nursing notes reviewed and agree them. The patient's history was concerning for nausea, vomiting, diarrhea, weakness and abdominal pain. Differential diagnosis: Etiologies such as electrolyte disturbance, gastroenteritis, urinary tract- infection, food borne illness, infections, appendicitis, diverticulitis, inflammatory bowel disease, GI bleed, biliary pathology, as well as others were entertained. Physical examination findings: As above. ER treatment provided: IV hydration with normal saline IV Rocephin On reassessment the patient felt better. Patient was tolerating p.o. intake. The patient was noted to be increasing pain. She was given IV fentanyl 50 mcg as this was not listed on her allergies IV Zofran. The patient then started developing some itching. She was reassessed. Breathing was stable. She was given IV Benadryl. Diagnostics interpretation by me: ECG: No acute ischemia The labs revealed an unremarkable CBC and chemistry panel. Urinalysis concerning for infection. Imaging studies: Chest x-ray negative for acute process CT imaging was performed and concerning for an upper urinary tract infection renal stones noted. No obstructing stones noted. Consultation: A consultation was placed with the hospitalist. The case was discussed and diagnostics were reviewed. The patient was evaluated in the ER for further treatment. Continuous Cardiac Monitoring: An order was placed for continuous cardiac monitoring. The monitor shows a rate of 108 with tachycardia and no PVCs or PACs. IMPRESSION: * Pyelonephritis * Weakness * Vomiting PLAN: Admitted. Being evaluated by hospitalist. The scribe's documentation has been prepared under my direction and personally reviewed by me in its entirety. I confirm that the note above accurately reflects all work, treatment, procedures, and medical decision making performed by me. Impression & Plan Pyelonephritis, Weakness, Vomiting Past Med/Surg History Medical History Anxiety Asthma Bladder infection CHF (congestive heart failure) Chronic back pain Chronic headaches Chronic kidney disease FOLLOWS W/ DR. JASON Chronic renal insufficiency COPD (chronic obstructive pulmonary disease) Deep vein thrombosis LLE - COULD NOT RECALL DATE - REPORTS SHE WAS TREATED AT [facility] W/ BLOOD THINNERS Degenerative disc disease Depression Diabetes mellitus, type 2 GERD (gastroesophageal reflux disease) History of colon cancer 2012 S/P BOWEL RESECTION. Hyperlipidemia Hypertension Kidney stones Morbid obesity with BMI of 40.0-44.9, adult Myocardial Infarction 03/2018--> [facility] -- CARDIAC CATH --> NO STENTS/ANGIOPLASTY PER PT REPORT -- POOR HISTORIAN? REPORTS SHE IS ON PLAVIX FOR HEART - DENIES STENTS - DENIES ARRHYTHMIA - FOLLOWS W/ DR. TORRES On anticoagulant therapy plavix daily On home oxygen therapy 2L N/C at all times Osteoarthritis Poor historian Surgical History H/O hand surgery RIGHT History of appendectomy History of bilateral cataract extraction History of blepharoplasty History of bowel resection d/t colon cancer History of cardiac cath 03/2018 - [place] - DENIES STENTS/ANGIOPLASTY - [facility] - FOLLOWS W/ DR. 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 Required: No Beliefs That Will Affect Care: None marital status: Current Living Situation: Alone Current Living Situation Comment: per pt she lives alone, "my lives alone and I live alone" Feels Safe at Home: Yes Smoking Status: Former smoker Tobacco Type: cigarettes ; Second Hand Exposure: Yes ( smoked/daughter smoked) ; Hx Alcohol Use: No Hx Substance Use: No Results & Data Vital Signs Vital Signs - 24 hr 11/30/19 19:18 11/30/19 19:27 11/30/19 19:33 Temperature 37 C Temperature Source Oral Pulse Rate 107 H 105 H Pulse Rate [Right Finger] Pulse Rate from SpO2 Sensor 106 H Respiratory Rate 15 16 Respiratory Effort / Characteristics Non-Labored Spontaneous Respiratory Depth Normal Respiratory Pattern Regular Blood Pressure 122/85 122/85 Blood Pressure [Left Arm] Blood Pressure Mean 97 97 Blood Pressure Mean [Left Arm] Blood Pressure Position Semi-fowlers Blood Pressure Position [Left Arm] Pulse Oximetry 95 97 97 Oxygen Delivery Method Nasal Cannula Nasal Cannula Oxygen Flow Rate 2 2 Sepsis Recent Fever Within 48 Hours No Sepsis New/Unexplained Change in Mental Status No Sepsis Action Taken by Nursing No Action Required 11/30/19 20:11 11/30/19 20:12 11/30/19 20:30 Temperature Temperature Source Pulse Rate 99 H 90 Pulse Rate [Right Finger] 99 H Pulse Rate from SpO2 Sensor 99 H 91 H Respiratory Rate 18 18 16 Respiratory Effort / Characteristics Respiratory Depth Respiratory Pattern Blood Pressure 137/83 111/78 Blood Pressure [Left Arm] 137/83 Blood Pressure Mean 105 93 Blood Pressure Mean [Left Arm] 101 Blood Pressure Position Blood Pressure Position [Left Arm] Sitting Pulse Oximetry 97 97 96 Oxygen Delivery Method Nasal Cannula Nasal Cannula Nasal Cannula Oxygen Flow Rate 2 2 2 Sepsis Recent Fever Within 48 Hours Sepsis New/Unexplained Change in Mental Status Sepsis Action Taken by Nursing 11/30/19 21:00 11/30/19 21:30 11/30/19 21:44 Temperature Temperature Source Pulse Rate 90 83 83 Pulse Rate [Right Finger] Pulse Rate from SpO2 Sensor 91 H 84 84 Respiratory Rate 17 14 13 Respiratory Effort / Characteristics Respiratory Depth Respiratory Pattern Blood Pressure 113/74 96/66 L 96/66 L Blood Pressure [Left Arm] Blood Pressure Mean 84 76 76 Blood Pressure Mean [Left Arm] Blood Pressure Position Blood Pressure Position [Left Arm] Pulse Oximetry 97 97 97 Oxygen Delivery Method Nasal Cannula Oxygen Flow Rate 2 Sepsis Recent Fever Within 48 Hours Sepsis New/Unexplained Change in Mental Status Sepsis Action Taken by Nursing 11/30/19 22:00 11/30/19 22:30 11/30/19 23:00 Temperature Temperature Source Pulse Rate 85 94 H 95 H Pulse Rate [Right Finger] Pulse Rate from SpO2 Sensor 86 93 H 96 H Respiratory Rate 14 17 12 Respiratory Effort / Characteristics Respiratory Depth Respiratory Pattern Blood Pressure 93/62 L 133/85 149/89 H Blood Pressure [Left Arm] Blood Pressure Mean 74 98 94 Blood Pressure Mean [Left Arm] Blood Pressure Position Blood Pressure Position [Left Arm] Pulse Oximetry 98 98 99 Oxygen Delivery Method Oxygen Flow Rate Sepsis Recent Fever Within 48 Hours Sepsis New/Unexplained Change in Mental Status Sepsis Action Taken by Nursing 11/30/19 23:30 12/01/19 00:00 12/01/19 00:30 Temperature Temperature Source Pulse Rate 94 H 97 H 105 H Pulse Rate [Right Finger] Pulse Rate from SpO2 Sensor 93 H 98 H 104 H Respiratory Rate 12 12 16 Respiratory Effort / Characteristics Respiratory Depth Respiratory Pattern Blood Pressure 129/85 119/85 124/89 Blood Pressure [Left Arm] Blood Pressure Mean 106 101 94 Blood Pressure Mean [Left Arm] Blood Pressure Position Blood Pressure Position [Left Arm] Pulse Oximetry 99 99 96 Oxygen Delivery Method Nasal Cannula Nasal Cannula Oxygen Flow Rate 2 2 Sepsis Recent Fever Within 48 Hours Sepsis New/Unexplained Change in Mental Status Sepsis Action Taken by Nursing 12/01/19 00:46 12/01/19 01:00 12/01/19 01:30 Temperature Temperature Source Pulse Rate 103 H 101 H Pulse Rate [Right Finger] 103 H Pulse Rate from SpO2 Sensor 102 H 98 H Respiratory Rate 14 19 17 Respiratory Effort / Characteristics Respiratory Depth Respiratory Pattern Blood Pressure 117/99 Blood Pressure [Left Arm] Blood Pressure Mean 116 Blood Pressure Mean [Left Arm] Blood Pressure Position Blood Pressure Position [Left Arm] Pulse Oximetry 97 98 96 Oxygen Delivery Method Nasal Cannula Oxygen Flow Rate 2 Sepsis Recent Fever Within 48 Hours Sepsis New/Unexplained Change in Mental Status Sepsis Action Taken by Half-Way Medications Current Medication List: was personally reviewed by me Laboratory Data Attestation: I reviewed the patient's lab results. Result diagrams: 11/30/19 18:50 11/30/19 18:50 Lab Results 11/30/19 11/30/19 11/30/19 Range/Units 18:50 18:50 19:20 WBC 9.60 (4.8-10.8) K/uL RBC 4.14 L (4.2-5.4) M/uL Hgb 12.6 (12.0-16.0) g/dL Hct 39.7 (37-47) % MCV 95.9 (80-100) fL MCH 30.4 (25-34) pg MCHC 31.7 L (32-36) g/dL RDW Std Deviation 48.5 H (36.4-46.3) fL RDW Coeff of Teresa 13.8 (11.5-14.5) % Plt Count 273 (130-400) K/uL MPV 10.9 H (7.4-10.4) fL Immature Gran % (Auto) 0.4 % Neut % (Auto) 62.9 % Lymph % (Auto) 23.2 % Acadia % (Auto) 9.1 % Eos % (Auto) 4.1 % Baso % (Auto) 0.3 % Immature Gran # (Auto) 0.04 H (0.00-0.02) K/uL Neut # (Auto) 6.04 (1.4-6.5) K/uL Lymph # (Auto) 2.23 (1.2-3.4) K/uL Acadia # (Auto) 0.87 H (0.11-0.59) K/uL Eos # (Auto) 0.39 (0-0.5) K/uL Baso # (Auto) 0.03 (0-0.2) K/uL Sodium 139 (136-145) mmol/L Potassium 3.9 (3.5-5.1) mmol/L Chloride 109 H (98-107) mmol/L Carbon Dioxide 24 (21-32) mmol/L Anion Gap 6.0 (3-11) BUN 16 (7-18) mg/dl Creatinine 1.57 H (0.6-1.2) mg/dl Est Cr Clr Drug Dosing 37.3 ml/min Est GFR ( Amer) 39.4 Est GFR (Non-Af Amer) 34.0 BUN/Creatinine Ratio 9.9 L (10-20) Glucose 144 H (70-99) mg/dl Calcium 9.4 (8.5-10.1) mg/dl Magnesium 2.1 (1.8-2.4) mg/dl Total Bilirubin 0.3 (0.2-1) mg/dl AST 53 H (15-37) U/L ALT 44 (12-78) U/L Alkaline Phosphatase 160 H (45-117) U/L Troponin I < 0.015 (0-0.045) ng/ml NT-Pro-B Natriuret Pep 41 (0-900) pg/ml Total Protein 8.1 (6.4-8.2) gm/dl Albumin 3.1 L (3.4-5.0) gm/dl Globulin 5.0 H (2.5-4.0) gm/dl Albumin/Globulin Ratio 0.6 L (0.9-2) TSH 1.130 (0.300-4.500) uIu/ml Urine Color Urine Appearance (Clear) Urine pH (4.5-7.5) Ur Specific Hodge (1.000-1.030) Urine Protein (Negative) Urine Glucose (UA) (Negative) Urine Ketones (Negative) Urine Blood (Negative) Urine Nitrite (Negative) Urine Bilirubin (Negative) Urine Urobilinogen (Negative) Ur Leukocyte Esterase (Negative) Urine WBC (Auto) (0-5) /hpf Urine RBC (Auto) (0-4) /hpf U Hyaline Cast (Auto) (0-5) /lpf U Epithel Cells (Auto) (0-5) /lpf Urine Bacteria (Auto) (Negative) Granular Casts (0) /lpf Influenza Type A Ag Neg for Influ A (Neg) Influenza Type B Ag Neg for Influ B (Neg) 11/30/19 Range/Units 20:24 WBC (4.8-10.8) K/uL RBC (4.2-5.4) M/uL Hgb (12.0-16.0) g/dL Hct (37-47) % MCV (80-100) fL MCH (25-34) pg MCHC (32-36) g/dL RDW Std Deviation (36.4-46.3) fL RDW Coeff of Teresa (11.5-14.5) % Plt Count (130-400) K/uL MPV (7.4-10.4) fL Immature Gran % (Auto) % Neut % (Auto) % Lymph % (Auto) % Acadia % (Auto) % Eos % (Auto) % Baso % (Auto) % Immature Gran # (Auto) (0.00-0.02) K/uL Neut # (Auto) (1.4-6.5) K/uL Lymph # (Auto) (1.2-3.4) K/uL Acadia # (Auto) (0.11-0.59) K/uL Eos # (Auto) (0-0.5) K/uL Baso # (Auto) (0-0.2) K/uL Sodium (136-145) mmol/L Potassium (3.5-5.1) mmol/L Chloride (98-107) mmol/L Carbon Dioxide (21-32) mmol/L Anion Gap (3-11) BUN (7-18) mg/dl Creatinine (0.6-1.2) mg/dl Est Cr Clr Drug Dosing ml/min Est GFR ( Amer) Est GFR (Non-Af Amer) BUN/Creatinine Ratio (10-20) Glucose (70-99) mg/dl Calcium (8.5-10.1) mg/dl Magnesium (1.8-2.4) mg/dl Total Bilirubin (0.2-1) mg/dl AST (15-37) U/L ALT (12-78) U/L Alkaline Phosphatase (45-117) U/L Troponin I (0-0.045) ng/ml NT-Pro-B Natriuret Pep (0-900) pg/ml Total Protein (6.4-8.2) gm/dl Albumin (3.4-5.0) gm/dl Globulin (2.5-4.0) gm/dl Albumin/Globulin Ratio (0.9-2) TSH (0.300-4.500) uIu/ml Urine Color Dark Yellow Urine Appearance Turbid A (Clear) Urine pH 5.5 (4.5-7.5) Ur Specific Hodge 1.023 (1.000-1.030) Urine Protein 2+ H (Negative) Urine Glucose (UA) Negative (Negative) Urine Ketones Negative (Negative) Urine Blood 1+ H (Negative) Urine Nitrite Positive A (Negative) Urine Bilirubin Negative (Negative) Urine Urobilinogen Negative (Negative) Ur Leukocyte Esterase 2+ H (Negative) Urine WBC (Auto) >30 H (0-5) /hpf Urine RBC (Auto) 0-4 (0-4) /hpf U Hyaline Cast (Auto) 0 (0-5) /lpf U Epithel Cells (Auto) 20-30 H (0-5) /lpf Urine Bacteria (Auto) 4+ H (Negative) Granular Casts 1-5 H (0) /lpf Influenza Type A Ag (Neg) Influenza Type B Ag (Neg) Administered Medications Sodium Chloride (Nss 1000ml) 1,000 mls @ 125 mls/hr IV .Q8H MARLA Stop: 12/01/19 03:29 Last Admin: 11/30/19 20:12 Dose: 125 mls/hr Documented by: [id number] Discontinued Medications Diphenhydramine HCl (Benadryl) 50 mg IV NOW STA Stop: 12/01/19 01:39 Last Admin: 12/01/19 01:49 Dose: 50 mg Documented by: [id number] Fentanyl Citrate (Fentanyl Citrate) 50 mcg IV NOW STA Stop: 12/01/19 00:09 Last Admin: 12/01/19 00:16 Dose: 50 mcg Documented by: [id number] Ceftriaxone Sodium (Rocephin) 2,000 mg in 70 mls @ 140 mls/hr IV NOW STA Stop: 11/30/19 22:24 Last Infusion: 11/30/19 23:40 Dose: 0 mls/hr Documented by: [id number] Admin: 11/30/19 23:10 Dose: 140 mls/hr Documented by: [id number] Ondansetron HCl (Zofran) 4 mg IV NOW STA Stop: 11/30/19 19:28 Last Admin: 11/30/19 20:12 Dose: 4 mg Documented by: [id number] Imaging Data Radiologist's Impression: Radiology results as stated below per my review and the radiologist's interpretation: ABDOMEN AND PELVIS CT WITHOUT CONTRAST CT DOSE: 1245.97 mGy.cm HISTORY: Acute left-sided flank pain with vomiting left flank pain, vomiting. hx of stones and pyelo TECHNIQUE: Multiaxial CT images of the abdomen and pelvis were performed without contrast. A dose lowering technique was utilized adhering to the principles of ALARA. COMPARISON STUDY: CT abdomen and pelvis 07/21/2019 FINDINGS: Calcified pierre limit of the lung bases. There is symmetric subpleural reticulation with groundglass densities of the left lung base suggest probable a telectasis/scarring. There are a few nodular foci of the inferior segment lingula measuring up to 4 mm which are likely benign. No pneumatosis or pneumoperitoneum. Imaged inferior cardiac chambers are unremarkable. Limited evaluation of the solid abdominal organs without the use of IV contrast. There is suggestion of mild hepatic steatosis. No focal hepatic mass lesion or evidence of cirrhosis. Spleen measures the upper limits of normal in size. Pancreas and adrenal glands are unremarkable. Cholecystectomy. Probable cyst of the anterior interpolar right kidney, 1.5 cm. There are least 3 nonobstructing calculi of the right kidney measuring up to 4 mm. Atrophy with multifocal cortical scarring and parenchymal thinning of the left kidney redemonstrated with multiple parenchymal calcifications. Calcifications of the inferior pole left kidney redemonstrated measuring up to approximately 1.5 cm. Large cyst of the superior pole left kidney measures up to at least 8 cm. There are no ureteral calculi or obstructive uropathy identified. Mild urothelial thickening of the inferior pole left kidney is suggested. Wall thickening of the urinary bladder with partial distention. Hysterectomy. No adnexal mass lesion. Aorta and IVC are unremarkable. There is no adenopathy. Moderate hiatal hernia. No bowel obstruction or bowel wall thickening. Postoperative changes from prior subtotal colectomy. Diastases recti with multiple small fat filled ventral abdominal wall hernias. Portions of small bowel partially extend into several the hernia is. Atrophy of the rectus sheath. Degenerative changes of the spine. IMPRESSION: 1. No ureteral calculi or obstructive uropathy. 2. Left greater and right nonobstructing bilateral nephrolithiasis with chronic changes of the left kidney redemonstrated. Additionally, there is suggestion of mild urothelial thickening of the inferior pole left kidney. Correlate with urinalysis. 3. Moderate hiatal hernia. 4. No bowel obstruction or bowel wall thickening. 5. Multiple bowel and fat filled ventral abdominal wall hernias redemonstrated. 6. Additional findings as above. ACT 112: Negative or not required by law. The above report was generated using voice recognition software. It may contain grammatical, syntax or spelling errors. Electronically signed by: Mack Calderon M.D. 11/30/2019 8:27 PM XR chest 1V portable HISTORY: 64 years-old Female weakness acute weakness COMPARISON: Chest radiograph 07/25/2019 TECHNIQUE: Portable AP view of the chest FINDINGS: Cardiomediastinal and hilar silhouettes are within normal limits. Areas of chronic appearing interstitial coarsening are noted without pneumothorax, pleural effusion or overt pulmonary edema. No lobar airspace consolidation. Degenerative changes of the shoulders and spine. Possible hiatal hernia. IMPRESSION: Chronic interstitial coarsening without acute process. ACT 112: Negative or not required by law. The above report was generated using voice recognition software. It may contain grammatical, syntax or spelling errors. Electronically signed by: Mack Calderon M.D. 11/30/2019 7:37 PM ECG Data Attestation: I personally reviewed and interpreted this ECG as follows: Indication: + weakness Rate (beats per minute): 108 Rhythm: sinus tachycardia ECG Intervals/blocks: + Normal QRS ECG Moseley: + Normal ECG ST segments: no ST depression and no ST elevation ECG Findings: + Q waves (inferior) and + Poor R wave progression (anteriorly); no PACs and no PVCs Blood Pressure Blood Pressure Findings: Elevated blood pressure Blood Pressure Disposition: further management by hospitalist Discharge Plan Visit Data Chief Complaint: Illness Stated Complaint: CHEST TIGHTNESS, SOB, FLU LIKE SX ED Provider: Kyler Cam Discharge Problem: Pyelonephritis, Weakness, Vomiting Patient Disposition: Being Evaluated by Hospitalist Forms Stand Alone Forms: [facility] [place] Prescriptions Prescriptions: No Action metoprolol succinate 50 mg tablet extended release 24 hr 50 mg PO BID RF: 0 albuterol sulfate 90 mcg/actuation Hfa Aerosol Inhaler 2 puff INHALATION Q4H PRN (Reason: Shortness Of Breath) RF: 0 magnesium oxide 400 mg magnesium Tablet 400 mg PO HS RF: 0 doxepin 100 mg capsule 100 mg PO HS RF: 0 ferrous sulfate 325 mg (65 mg iron) tablet 325 mg PO BID RF: 0 metformin 500 mg tablet extended release 24 hr 500 mg PO QAM RF: 0 atorvastatin [Lipitor] 40 mg Tablet 40 mg PO QPM RF: 0 clopidogrel [Plavix] 75 mg Tablet 75 mg PO QPM RF: 0 pantoprazole [Protonix] 40 mg Tablet,Delayed Release (Dr/Ec) 40 mg PO BID RF: 0 gabapentin 300 mg Capsule 300 mg PO TID RF: 0 hydroxyzine HCl 25 mg Tablet 25 mg PO BID PRN (Reason: Anxiety) RF: 0 riboflavin (vitamin B2) 400 mg Tablet 400 mg PO QPM RF: 0 duloxetine 60 mg Capsule,Delayed Release(Dr/Ec) 60 mg PO QAM RF: 0 oxcarbazepine 300 mg tablet 300 mg PO BID RF: 0 cholecalciferol (vitamin D3) [Vitamin D3] 2,000 unit Capsule 2,000 unit PO QAM RF: 0 Referrals Referrals: Toño Naidu MD [Primary Care Provider] - Discharge Problem: Vomiting Qualifiers: Vomiting type: unspecified Vomiting Intractability: non-intractable Nausea presence: with nausea Qualified Code(s): R11.2 - Nausea with vomiting, unspecified The scribe's documentation has been prepared under my direction and personally reviewed by me in its entirety. I confirm that the note above accurately reflects all work, treatment, procedures, and medical decision making performed by me.
[2019-12-01] MEDS ORDERED: ACETAMINOPHEN 325 MG TAB PO PRN (04:15)
[2019-12-01] MEDS ORDERED: IPRATROPIUM BROMIDE NEB SOLN 0.02% 2.5 ML VIAL INH PRN (04:15)
[2019-12-01] MEDS ORDERED: ALBUTEROL HFA 8 GM INHALER INH PRN (04:15)
[2019-12-01] MEDS ORDERED: NITROGLYCERIN SL 0.4 MG/TAB TAB SL PRN (04:15)
[2019-12-01] MEDS ORDERED: XOPENEX/ATROVENT 1.25mg/0.5MG NEB COMBO NEB PRN (04:15)
[2019-12-01] MEDS ORDERED: LEVALBUTEROL 1.25MG/0.5ML NEB INH PRN (04:15)
[2019-12-01] MEDS: SODIUM CHLORIDE 0.9% 1000ML 1,000 ML IV SCH ×3 (04:39→23:34)
--- NOTE | 2019-12-01 05:29 | History and Physical Report ---
DATE OF ADMISSION: 12/01/2019 CHIEF COMPLAINT: Nausea, belly pain, flank pain. HISTORY OF PRESENT ILLNESS: This is a 64-year-old female with past medical history significant for type 2 diabetes; COPD; chronic respiratory failure with hypoxia; hyperlipidemia; obesity; bronchiectasis without complication; history of oropharyngeal dysphagia, the patient says when she eats meat she gets choked; history of pneumonia in the past; sleep apnea; moderate persistent asthma; hypertension; diastolic dysfunction; reflux esophagitis; obesity; chronic kidney disease stage III; degenerative disk disease; iron deficiency anemia; history of colon cancer; anxiety; history of kidney stones; presents with not feeling well. The patient states since last 3 days, she has been having abdominal discomfort ,nausea and left flank pain and fever at home. She did not check the fever. She lives alone. She walks with a cane and walker. She has a caregiver who comes twice daily to home. Because of ongoing symptoms, she came to the hospital. She is hemodynamically stable, no leukocytosis, but UA is positive. CAT scan showing possible pyelonephritis. Chest x-ray is unremarkable. THE PATIENT IS ALLERGIC TO NARCOTIC PAIN MEDICATION, but because of pain she received some fentanyl in Er and then developed some throat discomfort and itchiness. In the ER, was ordered IV Benadryl.. Flu is negative. Has some headache and lightheadedness. No blurred vision, no earache, no runny nose. Has some sore throat now due to pain medications. No cough. She also complained of some chest heaviness going on for the last 3 days. No shortness of breath. Also had some diarrhea. No blood in stool or black stools present. No hematuria, no burning micturition. No rash. ALLERGIES: TRAMADOL, DEMEROL, ASPIRIN, AUGMENTIN, HYDROMORPHONE, IVP DYE, MORPHINE AND SALICYLATES. PAST MEDICAL HISTORY: As mentioned above. PAST SURGICAL HISTORY: Breast lesion excision, colonoscopy, EGDs, flexible sigmoidoscopy, laparoscopic total colectomy with ileostomy, several different procedures for left kidney for stones, cataract surgery, bilateral cholecystectomy, total hysterectomy. MEDICATIONS: The patient is on albuterol 2 puffs q. 4 hours p.r.n., atorvastatin 40 mg p.o. q.p.m., vitamin D 2000 units p.o. a.m., Plavix 75 mg p.o. p.m., doxepin 100mg at bedtime, Cymbalta 60 mg p.o. a.m., ferrous sulfate 325 mg p.o. b.i.d., gabapentin 300 mg p.o. t.i.d., hydroxyzine 25 mg p.o. b.i.d. p.r.n., magnesium oxide 400 mg p.o. at bedtime, metformin 500 mg p.o. a.m., metoprolol succinate 50 mg p.o. b.i.d., oxcarbazepine 300 mg p.o. b.i.d., Protonix 40 mg p.o. b.i.d., riboflavin 400 mg p.o. q.p.m. FAMILY HISTORY: Significant for mother had breast cancer. Sister has breast cancer. Daughter has diabetes. Sister has liver disease. Father had colon cancer. SOCIAL HISTORY: Currently lives alone with caregiver. No smoking, no alcohol, no drug use. REVIEW OF SYMPTOMS: As per HPI. Rest of review of symptoms negative. PHYSICAL EXAMINATION: GENERAL: The patient is morbidly obese, not in acute distress. VITAL SIGNS: Temperature 37, pulse 97, respiratory rate 14, blood pressure 117/81 97% on 2 liters. HEENT: No pallor, no icterus. Pupils equal, round, reactive to light. NECK: No JVD, no masses, no carotid bruits. CARDIOVASCULAR: S1, S2 heard. Regular rate and rhythm. No murmur, no gallop. RESPIRATORY SYSTEM: Normal AP diameter. No accessory muscle use. No wheezing, no crackles. ABDOMEN: Soft, bowel sounds present, some mild abdominal discomfort. Left CVA tenderness present with no guarding, no rigidity. CENTRAL NERVOUS SYSTEM: Cranial nerves II-XII grossly intact, nonfocal. EXTREMITIES: No edema, no erythema. LABORATORY DATA: WBC 11.6, hemoglobin 12.6, hematocrit 39.7, platelets 273. Sodium 139, potassium 3.9, chloride 109, bicarb 24, BUN 16, creatinine 1.57, serum glucose 144, calcium 9.4, magnesium 2.1. Total bilirubin 0.3, AST 53, ALT 44, alkaline phosphatase 160. Troponin I less than 0.015. BNP 41. TSH 1.1. Urinalysis positive for leukocyte esterase and nitrite. Influenza A and B, PCR negative. IMAGING DATA: Chest x-ray: Chronic interstitial coarsening without acute process. CT abdomen and pelvis: No obstructive uropathy, left greater than right nonobstructing bilateral nephrolithiasis with chronic changes of the left kidney redemonstrated, mild urothelial thickening of the inferior pole of left kidney, correlate with urinalysis. Moderate hiatal hernia, no bowel obstruction or bowel wall thickening, multiple bowel and fat filled ventral abdominal wall hernias redemonstrated. ASSESSMENT AND PLAN: A 64-year-old female who presents with ongoing illness with nausea, poor appetite, fevers and left flank pain and found to have UTI, possible pyelonephritis. 1. UTI, possible pyelonephritis. History of multiple procedures on left kidney for kidney stones. We will follow the cultures. We will start on IV fluids normal saline 100 mL per hour, IV Rocephin. Follow the cultures and monitor in the med/surg tele. 2. Chest heaviness probably from ongoing illness. We will follow the serial cardiac enzymes. If any concerns, we will get echocardiogram. 3. Chronic respiratory failure, obstructive sleep apnea, COPD, bronchiectasis without complication, obesity. Asthma ,Continue CPAP at bedtime. Continue home inhalers and nebs p.r.n. 4. Hyperlipidemia, on statin. 5. Type 2 diabetes. Hold metformin . ISS. Follow the blood sugars. 6. Diastolic CHF. Monitor for any volume overload, not on diuretics. 7. Hypertension, on Toprol-XL. We will monitor blood pressure. 8. Depression, on Cymbalta. 9. History of colon cancer s/p colectomy. 10. GERD, on PPI. 11. PERRI on chronic kidney disease stage III. Baseline creatinine around 1.3, current creatinine 1.57. Getting fluids. We will follow the labs in a.m. 12. DVT prophylaxis, SCDs. DISPOSITION: Closely monitor in the med/surg tele. Level 1 full code. MTDD
[2019-12-01] MEDS ORDERED: ACETAMINOPHEN 1,000 MG/100 ML VIAL IV PRN (07:57)
[2019-12-01] MEDS: METOPROLOL SUCC 50MG EXT REL TAB PO SCH ×4 (09:18→20:50)
[2019-12-01] MEDS: FERROUS SULFATE 325 MG TAB PO SCH ×3 (09:18→20:49)
[2019-12-01] MEDS: DULOXETINE HCL 60 MG CAP PO SCH ×3 (09:19→11:44)
[2019-12-01] MEDS: PANTOprazole 40 MG TAB PO SCH ×4 (09:19→20:51)
[2019-12-01] MEDS: OXcarbazepine 150 MG TABLET PO SCH ×4 (09:19→20:53)
[2019-12-01] MEDS: CHOLECALCIFEROL 1,000 UNITS 25 MCG TAB PO SCH ×2 (09:19→09:24)
[2019-12-01] MEDS: GABAPENTIN 300 MG CAP PO SCH ×4 (09:19→20:50)
[2019-12-01] MEDS: ONDANSETRON INJ 2 MG/ML 2 ML VIAL IV PRN ×2 (09:27→15:17)
[2019-12-01] MEDS: ACETAMINOPHEN 325 MG TAB PO SCH ×3 (11:41→23:34)
--- NOTE | 2019-12-01 11:52 | Hospitalist Progress Note ---
Date of Service December 01, 2019 Assessment & Plan (1) Pyelonephritis: (2) Vomiting: Complicated pyelonephritis CT abdomen pelvis showing bilateral nonobstructing nephrolithiasis with urothelial thickening of inferior pole of left kidney Urine culture growing gram-negative bacilli Continue IV ceftriaxone. Follow-up speciation and sensitivities of culture result Zofran as needed vomiting Pain control Continue IV fluids (3) GERD (gastroesophageal reflux disease): Continue PPI (4) CKD (chronic kidney disease), stage III: PERRI on CKD 3. Creatinine is 1.57 on admission Continue gentle hydration and monitor (5) Depression: Stable Continue home medication (6) COPD (chronic obstructive pulmonary disease): Patient also reported to have CALI. States that she does not use BiPAP at home as she cannot tolerate the machine and would not want to use in the hospital. COPD is currently stable Counseled on the need for weight loss to aid management of CALI (7) DM type 2 (diabetes mellitus, type 2): Home metformin on hold Colitis controlled diet Insulin sliding scale per protocol DVT prophylaxis Heparin subcu Admission and Anticipated Discharge Date Admission Date: December 01, 2019 Subjective Patient seen and examined. Still reporting nausea, chills Still reports left flank pain and lower abdominal pain. Physical Exam Constitutional: + well hydrated and + morbidly obese; no acute distress Eyes: PERRL, conjunctivae normal, anicteric sclerae Respiratory: normal respiratory effort, lungs clear to auscultation Cardiovascular: RRR, no murmur, no edema Gastrointestinal (Abdomen): normal bowel sounds, soft, nontender, no hepatosplenomegaly Musculoskeletal: no cyanosis or clubbing, extremities motor strength 5/5 Neurologic: PERRL, EOMI, accommodation nl, no face palsy, no dysarthria Psychiatric: A+Ox3, euthymic affect Genitourinary: + CVA tenderness (Left) Results & Data ([facility]) Vital Signs (Past 12 Hours) Vital Signs Temp Pulse Pulse Resp BP BP Pulse Ox 12/01/19 08:00 110 H 12/01/19 07:44 36.7 C 116 H 18 107/67 97 12/01/19 05:16 105 H 12/01/19 04:16 37 C 111 H 17 146/89 H 98 12/01/19 04:15 12/01/19 03:00 97 H 12 111/71 99 12/01/19 02:30 100 H 12 118/87 96 12/01/19 02:00 101 H 13 117/81 98 12/01/19 01:30 101 H 17 96 12/01/19 01:00 103 H 19 117/99 98 12/01/19 00:46 103 H 14 97 12/01/19 00:30 105 H 16 124/89 96 12/01/19 00:00 97 H 12 119/85 99 Pulse Ox 12/01/19 08:00 12/01/19 07:44 12/01/19 05:16 12/01/19 04:16 12/01/19 04:15 98 12/01/19 03:00 12/01/19 02:30 12/01/19 02:00 12/01/19 01:30 12/01/19 01:00 12/01/19 00:46 12/01/19 00:30 12/01/19 00:00 Laboratory Results Abnormal lab results 11/30/19 11/30/19 11/30/19 Range/Units 18:50 18:50 20:24 RBC 4.14 L (4.2-5.4) M/uL MCHC 31.7 L (32-36) g/dL RDW Std Deviation 48.5 H (36.4-46.3) fL MPV 10.9 H (7.4-10.4) fL Immature Gran # (Auto) 0.04 H (0.00-0.02) K/uL [place] # (Auto) 0.87 H (0.11-0.59) K/uL Chloride 109 H (98-107) mmol/L Creatinine 1.57 H (0.6-1.2) mg/dl BUN/Creatinine Ratio 9.9 L (10-20) Glucose 144 H (70-99) mg/dl POC Glucose (70-99) mg/dl AST 53 H (15-37) U/L Alkaline Phosphatase 160 H (45-117) U/L Albumin 3.1 L (3.4-5.0) gm/dl Globulin 5.0 H (2.5-4.0) gm/dl Albumin/Globulin Ratio 0.6 L (0.9-2) Urine Appearance Turbid A (Clear) Urine Protein 2+ H (Negative) Urine Blood 1+ H (Negative) Urine Nitrite Positive A (Negative) Ur Leukocyte Esterase 2+ H (Negative) Urine WBC (Auto) >30 H (0-5) /hpf U Epithel Cells (Auto) 20-30 H (0-5) /lpf Urine Bacteria (Auto) 4+ H (Negative) Granular Casts 1-5 H (0) /lpf 12/01/19 12/01/19 Range/Units 07:36 11:51 RBC (4.2-5.4) M/uL MCHC (32-36) g/dL RDW Std Deviation (36.4-46.3) fL MPV (7.4-10.4) fL Immature Gran # (Auto) (0.00-0.02) K/uL [place] # (Auto) (0.11-0.59) K/uL Chloride (98-107) mmol/L Creatinine (0.6-1.2) mg/dl BUN/Creatinine Ratio (10-20) Glucose (70-99) mg/dl POC Glucose 121 H 138 H (70-99) mg/dl AST (15-37) U/L Alkaline Phosphatase (45-117) U/L Albumin (3.4-5.0) gm/dl Globulin (2.5-4.0) gm/dl Albumin/Globulin Ratio (0.9-2) Urine Appearance (Clear) Urine Protein (Negative) Urine Blood (Negative) Urine Nitrite (Negative) Ur Leukocyte Esterase (Negative) Urine WBC (Auto) (0-5) /hpf U Epithel Cells (Auto) (0-5) /lpf Urine Bacteria (Auto) (Negative) Granular Casts (0) /lpf (1) Vomiting Nausea presence: with nausea Vomiting Intractability: non-intractable Vomiting type: unspecified Qualified Code(s): R11.2 - Nausea with vomiting, unspecified
--- NOTE | 2019-12-01 18:07 | Electrocardiogram Report ---
Test Reason : Blood Pressure : / mmHG Vent. Rate : 108 BPM Atrial Rate : 108 BPM P-R Int : 152 ms QRS Dur : 058 ms QT Int : 300 ms P-R-T Axes : -01 -10 063 degrees QTc Int : 402 ms Sinus tachycardia Inferior infarct , age undetermined Abnormal ECG When compared with ECG of 25-JUL-2019 09:00, Inferior infarct is now Present Confirmed by Jas Lazcano ([id number]) on 12/01/2019 6:07:40 PM Referred By: REFERRED SELF Confirmed By:Efrem Lazcano
--- NOTE | 2019-12-01 18:14 | Electrocardiogram Report ---
Test Reason : Blood Pressure : / mmHG Vent. Rate : 112 BPM Atrial Rate : 112 BPM P-R Int : 172 ms QRS Dur : 058 ms QT Int : 310 ms P-R-T Axes : 071 -03 066 degrees QTc Int : 423 ms Sinus tachycardia Low voltage QRS Nonspecific T wave abnormality Abnormal ECG When compared with ECG of 30-NOV-2019 19:13, (unconfirmed) Borderline criteria for Anterior infarct are no longer Present No significant change was found Confirmed by Jas Lazcano ([id number]) on 12/01/2019 6:14:26 PM Referred By: REFERRED SELF Confirmed By:Efrem Lazcano
[2019-12-01] MEDS: MAGNESIUM OXIDE 400 MG TAB PO SCH (20:49)
[2019-12-01] MEDS: CLOPIDOGREL BISULFATE 75 MG TAB PO SCH (20:49)
[2019-12-01] MEDS: DOXEPIN HCL 50 MG CAPSULE PO SCH (20:50)
[2019-12-01] MEDS: ATORVASTATIN 40 MG TAB PO SCH (20:52)
[2019-12-01] MEDS ORDERED: NON-FORMULARY MEDICATION (Riboflavin (Vitamin B2) 400 MG) PO SCH (21:00)
[2019-12-01] MEDS: HEPARIN SOD 5,000 UNIT/0.5 ML VIAL SQ SCH (21:02)
[2019-12-01] MEDS: cefTRIAXone SODIUM 2,000 MG in DEXTROSE 5% 50 ML IV SCH (23:33)
[2019-12-02] MEDS: ACETAMINOPHEN 325 MG TAB PO SCH ×3 (05:15→18:12)
[2019-12-02] MEDS: HEPARIN SOD 5,000 UNIT/0.5 ML VIAL SQ SCH ×3 (05:16→21:00)
[2019-12-02 05:39] LABS: Basophils # (auto) 0.02 K/uL (0-0.2); Basophils % (auto) 0.4 %; Eosinophils # (auto) 0.29 K/uL (0-0.5); Eosinophils % (auto) 5.6 %; Immature Granulocytes # (auto) 0.04 K/uL (0.00-0.02); Immature Granulocytes % (auto) 0.8 %; Lymphocytes # (auto) 1.47 K/uL (1.2-3.4); Lymphocytes % (auto) 28.3 %; Mean Corpuscular Hemoglobin 29.3 pg (25-34); Mean Corpuscular Hgb Conc 29.7 g/dL (32-36); Mean Corpuscular Volume 98.4 fL (80-100); Mean Platelet Volume 10.5 fL (7.4-10.4); Monocytes # (auto) 0.52 K/uL (0.11-0.59); Neutrophils # (auto) 2.86 K/uL (1.4-6.5); Neutrophils % (auto) 54.9 %; Platelet Count 218 K/uL (130-400); RDW Standard Deviation 50.1 fL (36.4-46.3); Red Blood Count 3.76 M/uL (4.2-5.4)
[2019-12-02 06:06] LABS: BUN Creatinine Ratio 8.6 (10-20); Calcium 8.5 mg/dl (8.5-10.1); Creatinine Clr Calc Pharmacy 45.9 ml/min; Est GFR (African American) 50.9; Est GFR (Non-African American) 43.9; Magnesium 2.1 mg/dl (1.8-2.4); Potassium 3.6 mmol/L (3.5-5.1)
[2019-12-02] MEDS: PANTOprazole 40 MG TAB PO SCH ×2 (08:23→20:55)
[2019-12-02] MEDS: OXcarbazepine 150 MG TABLET PO SCH ×2 (08:23→20:56)
[2019-12-02] MEDS: GABAPENTIN 300 MG CAP PO SCH ×3 (08:24→20:55)
[2019-12-02] MEDS: METOPROLOL SUCC 50MG EXT REL TAB PO SCH ×2 (08:24→20:54)
[2019-12-02] MEDS: CHOLECALCIFEROL 1,000 UNITS 25 MCG TAB PO SCH (08:24)
[2019-12-02] MEDS: DULOXETINE HCL 60 MG CAP PO SCH (08:25)
[2019-12-02] MEDS: FERROUS SULFATE 325 MG TAB PO SCH ×2 (08:25→20:56)
[2019-12-02] MEDS: ONDANSETRON INJ 2 MG/ML 2 ML VIAL IV PRN ×2 (08:29→22:14)
[2019-12-02] MEDS: SODIUM CHLORIDE 0.9% 1000ML 1,000 ML IV SCH ×2 (10:07→20:07)
--- NOTE | 2019-12-02 11:08 | Hospitalist Progress Note ---
Date of Service December 02, 2019 Assessment & Plan (1) Pyelonephritis: (2) Vomiting: Complicated pyelonephritis CT abdomen pelvis showing bilateral nonobstructing nephrolithiasis with urothelial thickening of inferior pole of left kidney Urine culture growing pansensitive E. coli Continue IV ceftriaxone for now Zofran as needed vomiting Pain control Continue IV fluids (3) GERD (gastroesophageal reflux disease): Continue PPI (4) CKD (chronic kidney disease), stage III: PERRI on CKD 3. Creatinine is 1.57 on admission PERRI improving. Creatinine is 1.27 today. (5) Depression: Stable Continue home medication (6) COPD (chronic obstructive pulmonary disease): Patient also reported to have CALI. States that she does not use BiPAP/CPAP at home as she cannot tolerate the machine and would not want to use in the hospital. COPD is currently stable Counseled on the need for weight loss to aid management of CALI (7) DM type 2 (diabetes mellitus, type 2): Home metformin on hold Carbohydrate controlled diet Insulin sliding scale per protocol DVT prophylaxis Heparin subcu Admission and Anticipated Discharge Date Admission Date: December 01, 2019 Subjective Patient reports that vomiting has resolved but still has occasional nausea Reports persistent flank pain but reduction in severity. Tolerated breakfast well this morning. Physical Exam Constitutional: + well hydrated and + morbidly obese; no acute distress Eyes: PERRL, conjunctivae normal, anicteric sclerae ENMT: external ear and nose normal, oropharynx normal Respiratory: normal respiratory effort, lungs clear to auscultation Cardiovascular: RRR, no murmur, no edema Gastrointestinal (Abdomen): normal bowel sounds, soft, nontender, no hepatosplenomegaly Neurologic: PERRL, EOMI, accommodation nl, no face palsy, no dysarthria Psychiatric: A+Ox3, euthymic affect Genitourinary: + CVA tenderness (Left) Results & Data ([facility]) Vital Signs (Past 12 Hours) Vital Signs Temp Pulse Pulse Resp BP Pulse Ox 12/02/19 07:35 65 12/02/19 07:25 36.6 C 65 16 102/61 98 12/02/19 03:00 36.7 C 80 16 131/79 95 12/02/19 00:44 93 H Laboratory Results Abnormal lab results 12/01/19 12/02/19 12/02/19 Range/Units 20:10 05:12 05:12 RBC 3.76 L (4.2-5.4) M/uL Hgb 11.0 L (12.0-16.0) g/dL MCHC 29.7 L (32-36) g/dL RDW Std Deviation 50.1 H (36.4-46.3) fL MPV 10.5 H (7.4-10.4) fL Immature Gran # (Auto) 0.04 H (0.00-0.02) K/uL Chloride 112 H (98-107) mmol/L Creatinine 1.27 H D (0.6-1.2) mg/dl BUN/Creatinine Ratio 8.6 L (10-20) Glucose 125 H (70-99) mg/dl POC Glucose 116 H (70-99) mg/dl 12/02/19 12/02/19 Range/Units 07:41 11:43 RBC (4.2-5.4) M/uL Hgb (12.0-16.0) g/dL MCHC (32-36) g/dL RDW Std Deviation (36.4-46.3) fL MPV (7.4-10.4) fL Immature Gran # (Auto) (0.00-0.02) K/uL Chloride (98-107) mmol/L Creatinine (0.6-1.2) mg/dl BUN/Creatinine Ratio (10-20) Glucose (70-99) mg/dl POC Glucose 119 H 158 H (70-99) mg/dl (1) Vomiting Nausea presence: with nausea Vomiting Intractability: non-intractable Vomiting type: unspecified Qualified Code(s): R11.2 - Nausea with vomiting, unspecified
[2019-12-02] MEDS: DOXEPIN HCL 50 MG CAPSULE PO SCH (20:53)
[2019-12-02] MEDS: MAGNESIUM OXIDE 400 MG TAB PO SCH (20:55)
[2019-12-02] MEDS: ATORVASTATIN 40 MG TAB PO SCH (20:56)
[2019-12-02] MEDS: CLOPIDOGREL BISULFATE 75 MG TAB PO SCH (20:57)
[2019-12-02] MEDS: cefTRIAXone SODIUM 2,000 MG in DEXTROSE 5% 50 ML IV SCH (22:14)
[2019-12-03] MEDS: ACETAMINOPHEN 325 MG TAB PO SCH ×5 (00:18→23:54)
[2019-12-03] MEDS: SODIUM CHLORIDE 0.9% 1000ML 1,000 ML IV SCH (06:42)
[2019-12-03] MEDS: HEPARIN SOD 5,000 UNIT/0.5 ML VIAL SQ SCH ×3 (06:43→22:04)
[2019-12-03 06:50] LABS: Estimated Average Glucose 134 mg/dl; Hemoglobin A1C 6.3 % (4.5-5.6)
[2019-12-03 07:47] LABS: Hematocrit (blood only) 34.7 % (37-47); Hemoglobin 10.4 g/dL (12.0-16.0); Mean Corpuscular Hemoglobin 29.8 pg (25-34); Mean Corpuscular Volume 99.4 fL (80-100); Mean Platelet Volume 10.4 fL (7.4-10.4); Platelet Count 195 K/uL (130-400); RDW Coefficient of Variation 13.9 % (11.5-14.5); RDW Standard Deviation 49.9 fL (36.4-46.3); Red Blood Count 3.49 M/uL (4.2-5.4); White Blood Count 4.93 K/uL (4.8-10.8)
[2019-12-03 08:17] LABS: BUN Creatinine Ratio 7.4 (10-20); Calcium 8.8 mg/dl (8.5-10.1); Est GFR (Non-African American) 50.1; Potassium 4.1 mmol/L (3.5-5.1)
[2019-12-03] MEDS: OXcarbazepine 150 MG TABLET PO SCH ×2 (09:17→22:03)
[2019-12-03] MEDS: PANTOprazole 40 MG TAB PO SCH ×2 (09:17→20:30)
[2019-12-03] MEDS: DULOXETINE HCL 60 MG CAP PO SCH (09:17)
[2019-12-03] MEDS: METOPROLOL SUCC 50MG EXT REL TAB PO SCH ×2 (09:17→20:31)
[2019-12-03] MEDS: GABAPENTIN 300 MG CAP PO SCH ×3 (09:17→20:29)
[2019-12-03] MEDS: FERROUS SULFATE 325 MG TAB PO SCH ×2 (09:17→20:30)
[2019-12-03] MEDS: CHOLECALCIFEROL 1,000 UNITS 25 MCG TAB PO SCH (09:18)
--- NOTE | 2019-12-03 09:41 | Hospitalist Progress Note ---
Date of Service December 03, 2019 Assessment & Plan (1) Pyelonephritis: (2) Vomiting: Complicated pyelonephritis CT abdomen pelvis showing bilateral nonobstructing nephrolithiasis with urothelial thickening of inferior pole of left kidney Urine culture growing pansensitive E. coli Continue IV ceftriaxone for now Referred pain to the groin may be due to kidney stone on CT. Will check kidney ultrasound as patient continues to be symptomatic despite being on ceftriaxone for almost 2 days. Zofran as needed nausea Pain control Continue IV fluids (3) GERD (gastroesophageal reflux disease): Continue PPI (4) CKD (chronic kidney disease), stage III: PERRI on CKD 3. Resolved Creatinine is 1.57 on admission Creatinine is 1.14 today. (5) Depression: Stable Continue home medication (6) COPD (chronic obstructive pulmonary disease): Patient also reported to have CALI. Stated that she does not use BiPAP/CPAP at home as she cannot tolerate the machine and would not want to use in the hospital. COPD is currently stable Was counseled on the need for weight loss to aid management of CALI on my first evaluation (7) DM type 2 (diabetes mellitus, type 2): Home metformin on hold Carbohydrate controlled diet Glucose well controlled Insulin sliding scale per protocol DVT prophylaxis Heparin subcu Admission and Anticipated Discharge Date Admission Date: December 01, 2019 Subjective Patient seen and examined. Patient still reports some nausea. Said that the vomiting has resolved. She stated that the severity of left flank pain has reduced to about 3/10 this morning. However, she reported that she now has pain in both groin (worse on the left) which she thinks is the pain from left flank pain referred downwards. She stated this started yesterday. Denied any hematuria or passage of stone in the urine. Denied any fevers Denies any chest pain, cough, shortness of breath Reports occasional headache Physical Exam 2 Constitutional: + well hydrated and + morbidly obese; no acute distress Eyes: PERRL, conjunctivae normal, anicteric sclerae ENMT: external ear and nose normal, oropharynx normal Respiratory: normal respiratory effort, lungs clear to auscultation On nasal oxygen Cardiovascular: RRR, no murmur, no edema Gastrointestinal (Abdomen): Abdomen is nondistended, soft, left lower quadrant tenderness, no guarding no rigidity, bowel sounds normoactive Neurologic: PERRL, EOMI, accommodation nl, no face palsy, no dysarthria Psychiatric: A+Ox3, euthymic affect Genitourinary: + CVA tenderness (Left) Results & Data ([facility]) Vital Signs (Past 12 Hours) Vital Signs Temp Pulse Pulse Resp BP Pulse Ox 12/03/19 07:45 37.0 C 77 16 108/68 99 12/03/19 03:00 36.6 C 69 20 118/89 94 12/03/19 00:00 89 12/02/19 22:49 36.6 C 86 18 121/78 98 Laboratory Results Abnormal lab results 12/02/19 12/02/19 12/02/19 Range/Units 05:12 11:43 20:02 RBC (4.2-5.4) M/uL Hgb (12.0-16.0) g/dL Hct (37-47) % MCHC (32-36) g/dL RDW Std Deviation (36.4-46.3) fL Chloride (98-107) mmol/L BUN/Creatinine Ratio (10-20) Glucose (70-99) mg/dl POC Glucose 158 H 189 H (70-99) mg/dl Hemoglobin A1c 6.3 H (4.5-5.6) % 12/03/19 12/03/19 12/03/19 Range/Units 07:28 07:29 07:29 RBC 3.49 L (4.2-5.4) M/uL Hgb 10.4 L (12.0-16.0) g/dL Hct 34.7 L (37-47) % MCHC 30.0 L (32-36) g/dL RDW Std Deviation 49.9 H (36.4-46.3) fL Chloride 115 H (98-107) mmol/L BUN/Creatinine Ratio 7.4 L (10-20) Glucose 109 H (70-99) mg/dl POC Glucose 100 H (70-99) mg/dl Hemoglobin A1c (4.5-5.6) % (1) Vomiting Nausea presence: with nausea Vomiting Intractability: non-intractable Vomiting type: unspecified Qualified Code(s): R11.2 - Nausea with vomiting, unspecified
--- NOTE | 2019-12-03 11:58 | Ultrasound Report ---
EXAMINATION: RENAL ULTRASOUND CLINICAL HISTORY: Pyelonephritis COMPARISON STUDY: CT scan dated November 30, 2019 FINDINGS: The right kidney measures 10.9 cm. The left kidney measures 13.2 cm. There is no evidence of hydronephrosis. There is a 12 mm right renal cyst. There are multiple left renal cysts the larges t of which measures 8.4 cm. There is a 4 mm right renal calculus. Multiple lower pole left renal calculi are visualized, the larg est of which measures 9 mm. No bladder abnormalities are visualized. Neither ureteral jet was visualized IMPRESSION : 1. Bilateral renal cysts, left larger than right 2. Bilateral nephrolithiasis 3. No evidence of hydronephrosis ACT 112: Negative or not required by law. Electronically signed by: Hank Coronado M.D. 12/03/2019 11:57 AM
[2019-12-03] MEDS: MAGNESIUM OXIDE 400 MG TAB PO SCH (20:29)
[2019-12-03] MEDS: CLOPIDOGREL BISULFATE 75 MG TAB PO SCH (20:30)
[2019-12-03] MEDS: ATORVASTATIN 40 MG TAB PO SCH (20:30)
[2019-12-03] MEDS: DOXEPIN HCL 50 MG CAPSULE PO SCH (20:31)
[2019-12-03] MEDS: ONDANSETRON INJ 2 MG/ML 2 ML VIAL IV PRN (20:39)
[2019-12-03] MEDS: cefTRIAXone SODIUM 2,000 MG in DEXTROSE 5% 50 ML IV SCH (22:08)
[2019-12-04] MEDS: SODIUM CHLORIDE 0.9% 1000ML 1,000 ML IV SCH ×2 (03:32→13:20)
[2019-12-04] MEDS: HEPARIN SOD 5,000 UNIT/0.5 ML VIAL SQ SCH ×3 (06:15→21:10)
[2019-12-04] MEDS: ACETAMINOPHEN 325 MG TAB PO SCH ×4 (06:15→23:57)
[2019-12-04 07:46] LABS: Hemoglobin 9.9 g/dL (12.0-16.0); Mean Corpuscular Hemoglobin 29.9 pg (25-34); Mean Corpuscular Volume 99.7 fL (80-100); Mean Platelet Volume 10.4 fL (7.4-10.4); Platelet Count 189 K/uL (130-400); RDW Coefficient of Variation 13.8 % (11.5-14.5); RDW Standard Deviation 50.1 fL (36.4-46.3); Red Blood Count 3.31 M/uL (4.2-5.4); White Blood Count 6.26 K/uL (4.8-10.8)
[2019-12-04] MEDS: GABAPENTIN 300 MG CAP PO SCH ×3 (08:06→20:12)
[2019-12-04] MEDS: METOPROLOL SUCC 50MG EXT REL TAB PO SCH ×2 (08:06→20:11)
[2019-12-04] MEDS: PANTOprazole 40 MG TAB PO SCH ×2 (08:06→20:11)
[2019-12-04] MEDS: CHOLECALCIFEROL 1,000 UNITS 25 MCG TAB PO SCH (08:07)
[2019-12-04] MEDS: FERROUS SULFATE 325 MG TAB PO SCH ×2 (08:07→20:12)
[2019-12-04] MEDS: DULOXETINE HCL 60 MG CAP PO SCH (08:07)
[2019-12-04] MEDS: OXcarbazepine 150 MG TABLET PO SCH ×2 (08:07→20:10)
[2019-12-04 08:18] LABS: BUN Creatinine Ratio 8.2 (10-20); Calcium 8.8 mg/dl (8.5-10.1); Creatinine Clr Calc Pharmacy 54.6 ml/min; Est GFR (African American) 60.6; Est GFR (Non-African American) 52.3; Potassium 3.8 mmol/L (3.5-5.1)
[2019-12-04] MEDS: ONDANSETRON INJ 2 MG/ML 2 ML VIAL IV PRN ×2 (12:30→17:29)
--- NOTE | 2019-12-04 17:23 | Hospitalist Progress Note ---
Date of Service December 04, 2019 Assessment & Plan (1) Pyelonephritis: (2) Vomiting: Complicated pyelonephritis CT abdomen pelvis showing bilateral nonobstructing nephrolithiasis with urothelial thickening of inferior pole of left kidney Urine culture growing pansensitive E. coli Patient continues to have left flank pain with left CVA tenderness despite being on adequate antibiotics Renal ultrasound does show bilateral renal cysts left larger than right with bilateral nephrolithiasis without hydronephrosis. Patient's pain is likely related to nephrolithiasis Zofran as needed nausea Currently on Tylenol scheduled. Will do trial of oxycodone as patient reports allergies to salicylates, aspirin, Dilaudid and tramadol. She reported she has had oxycodone in the past without any reaction Will continue iv ceftriaxone for now and plan to de-escalate antibiotics to cefdinir 300 mg twice daily to complete 2 weeks of treatment on discharge (3) GERD (gastroesophageal reflux disease): Continue PPI (4) CKD (chronic kidney disease), stage III: PERRI on CKD 3. Resolved Creatinine is 1.57 on admission Creatinine is 1.10 today. (5) Depression: Stable Continue home medication (6) COPD (chronic obstructive pulmonary disease): Patient also reported to have CALI. Stated that she does not use BiPAP/CPAP at home as she cannot tolerate the machine and would not want to use in the hospital. COPD is currently stable Was counseled on the need for weight loss to aid management of CALI on my first evaluation (7) DM type 2 (diabetes mellitus, type 2): Home metformin on hold Carbohydrate controlled diet Glucose well controlled Insulin sliding scale per protocol DVT prophylaxis Heparin subcu Admission and Anticipated Discharge Date Admission Date: December 01, 2019 Subjective Patient seen and examined. Still reports significant left flank pain occasionally radiates into the left groin, associated with nausea Denies any vomiting. Denied any fevers, chills. Denied any dysuria, frequency, urgency, hematuria Denies any diarrhea or constipation Physical Exam Constitutional: + well hydrated and + obese; no acute distress Eyes: PERRL, conjunctivae normal, anicteric sclerae ENMT: external ear and nose normal, oropharynx normal Respiratory: normal respiratory effort, lungs clear to auscultation Cardiovascular: RRR, no murmur, no edema Gastrointestinal (Abdomen): normal bowel sounds, soft, nontender, no hepatosplenomegaly Neurologic: PERRL, EOMI, accommodation nl, no face palsy, no dysarthria Psychiatric: A+Ox3, euthymic affect Genitourinary: + CVA tenderness (Left ) Results & Data ([facility]) Vital Signs (Past 12 Hours) Vital Signs Temp Pulse Pulse Resp BP Pulse Ox 12/04/19 15:35 36.7 C 98 H 20 114/71 95 12/04/19 15:01 105 H 12/04/19 11:19 36.6 C 73 20 115/74 98 12/04/19 07:33 36.5 C 71 18 118/86 97 12/04/19 07:10 75 Laboratory Results Abnormal lab results 12/03/19 12/04/19 12/04/19 Range/Units 20:09 07:08 07:08 RBC 3.31 L (4.2-5.4) M/uL Hgb 9.9 L (12.0-16.0) g/dL Hct 33.0 L (37-47) % MCHC 30.0 L (32-36) g/dL RDW Std Deviation 50.1 H (36.4-46.3) fL Chloride 114 H (98-107) mmol/L BUN/Creatinine Ratio 8.2 L (10-20) Glucose 109 H (70-99) mg/dl POC Glucose 159 H (70-99) mg/dl 12/04/19 12/04/19 12/04/19 Range/Units 07:40 11:33 16:45 RBC (4.2-5.4) M/uL Hgb (12.0-16.0) g/dL Hct (37-47) % MCHC (32-36) g/dL RDW Std Deviation (36.4-46.3) fL Chloride (98-107) mmol/L BUN/Creatinine Ratio (10-20) Glucose (70-99) mg/dl POC Glucose 103 H 112 H 116 H (70-99) mg/dl (1) Vomiting Nausea presence: with nausea Vomiting Intractability: non-intractable Vomiting type: unspecified Qualified Code(s): R11.2 - Nausea with vomiting, unspecified
[2019-12-04] MEDS: DOXEPIN HCL 50 MG CAPSULE PO SCH (20:11)
[2019-12-04] MEDS: CLOPIDOGREL BISULFATE 75 MG TAB PO SCH (20:12)
[2019-12-04] MEDS: MAGNESIUM OXIDE 400 MG TAB PO SCH (20:12)
[2019-12-04] MEDS: ATORVASTATIN 40 MG TAB PO SCH (20:13)
[2019-12-04] MEDS: OXYCODONE HCL IR 5 MG TAB (IMMEDIATE RELEASE) PO PRN (20:18)
[2019-12-04] MEDS: cefTRIAXone SODIUM 2,000 MG in DEXTROSE 5% 50 ML IV SCH (22:09)
[2019-12-05] MEDS: OXYCODONE HCL IR 5 MG TAB (IMMEDIATE RELEASE) PO PRN ×3 (02:17→20:17)
[2019-12-05] MEDS: HEPARIN SOD 5,000 UNIT/0.5 ML VIAL SQ SCH ×3 (05:53→21:49)
[2019-12-05] MEDS: ACETAMINOPHEN 325 MG TAB PO SCH ×3 (05:55→17:20)
[2019-12-05 07:48] LABS: Hematocrit (blood only) 33.6 % (37-47); Hemoglobin 10.1 g/dL (12.0-16.0); Mean Corpuscular Hemoglobin 29.7 pg (25-34); Mean Corpuscular Hgb Conc 30.1 g/dL (32-36); Mean Corpuscular Volume 98.8 fL (80-100); Platelet Count 198 K/uL (130-400); RDW Coefficient of Variation 13.8 % (11.5-14.5); RDW Standard Deviation 49.3 fL (36.4-46.3); White Blood Count 5.97 K/uL (4.8-10.8)
[2019-12-05 08:18] LABS: BUN Creatinine Ratio 9.3 (10-20); Calcium 9.2 mg/dl (8.5-10.1); Creatinine Clr Calc Pharmacy 55.5 ml/min; Est GFR (African American) 61.9; Est GFR (Non-African American) 53.5; Potassium 3.6 mmol/L (3.5-5.1)
[2019-12-05] MEDS: GABAPENTIN 300 MG CAP PO SCH ×3 (08:23→20:18)
[2019-12-05] MEDS: OXcarbazepine 150 MG TABLET PO SCH ×2 (08:24→20:17)
[2019-12-05] MEDS: CHOLECALCIFEROL 1,000 UNITS 25 MCG TAB PO SCH (08:24)
[2019-12-05] MEDS: METOPROLOL SUCC 50MG EXT REL TAB PO SCH ×2 (08:26→20:17)
[2019-12-05] MEDS: FERROUS SULFATE 325 MG TAB PO SCH ×2 (08:26→20:18)
[2019-12-05] MEDS: PANTOprazole 40 MG TAB PO SCH ×2 (08:26→20:18)
[2019-12-05] MEDS: DULOXETINE HCL 60 MG CAP PO SCH (08:26)
[2019-12-05] MEDS: ONDANSETRON INJ 2 MG/ML 2 ML VIAL IV PRN (12:40)
--- NOTE | 2019-12-05 17:42 | Hospitalist Progress Note ---
Date of Service December 05, 2019 Assessment & Plan (1) Pyelonephritis: (2) Vomiting: Complicated pyelonephritis CT abdomen pelvis showing bilateral nonobstructing nephrolithiasis with urothelial thickening of inferior pole of left kidney Urine culture growing pansensitive E. coli Renal ultrasound does show bilateral renal cysts left larger than right with bilateral nephrolithiasis without hydronephrosis. Continue IV abx with Ceftriaxone, will de-escalate to Cefdinir 300mg BID to complete 2 weeks course of treatment Pain improves Possible discharge tomorrow (3) GERD (gastroesophageal reflux disease): Continue PPI (4) CKD (chronic kidney disease), stage III: PERRI on CKD 3. Creatinine is 1.57 on admission Creatinine is 1.08 today. Resolved (5) Depression: Stable Continue home medication (6) COPD (chronic obstructive pulmonary disease): CALI She does not use BiPAP/CPAP at home as she cannot tolerate the machine and would not want to use in the hospital. Continue on oxygen supplement Stable (7) DM type 2 (diabetes mellitus, type 2): Home metformin on hold while inpatient Carbohydrate controlled diet Glucose well controlled Insulin sliding scale per protocol DVT prophylaxis Heparin subcu Admission and Anticipated Discharge Date Admission Date: December 01, 2019 Subjective Pt was seen and examined Lying in bed with no distress Pt said that she feels a little better today She said that flank pain improves Denies any chest pain, palpitation and fever Physical Exam Physical Exam: General- No acute distress Head- atraumatic Eyes- PERRL, EOMI, ENT- oropharynx clear Neck- supple, no JVD Lungs- clear to auscultation Heart- regular rhythm; no murmur Abdomen- normal bowel sounds, soft, nontender Extremities- no calf tenderness Neuro- alert, oriented x 3; PERRL, EOMI; no facial palsy; no dysarthria Skin- warm & dry Results & Data ([facility]) Vital Signs (Past 12 Hours) Vital Signs Temp Pulse Pulse Resp BP Pulse Ox 12/05/19 15:12 81 12/05/19 11:00 36.6 C 74 20 124/76 98 12/05/19 07:50 36.4 C L 92 H 18 100/64 96 12/05/19 07:09 88 (1) Vomiting Nausea presence: with nausea Vomiting Intractability: non-intractable Vomiting type: unspecified Qualified Code(s): R11.2 - Nausea with vomiting, unspecified
[2019-12-05] MEDS: CLOPIDOGREL BISULFATE 75 MG TAB PO SCH (20:18)
[2019-12-05] MEDS: ATORVASTATIN 40 MG TAB PO SCH (20:18)
[2019-12-05] MEDS: MAGNESIUM OXIDE 400 MG TAB PO SCH (20:18)
[2019-12-05] MEDS: DOXEPIN HCL 50 MG CAPSULE PO SCH (20:19)
[2019-12-05] MEDS: cefTRIAXone SODIUM 2,000 MG in DEXTROSE 5% 50 ML IV SCH (22:07)
[2019-12-06] MEDS: ACETAMINOPHEN 325 MG TAB PO SCH ×3 (00:31→13:22)
[2019-12-06] MEDS: OXYCODONE HCL IR 5 MG TAB (IMMEDIATE RELEASE) PO PRN ×2 (02:17→04:11)
[2019-12-06] MEDS: HEPARIN SOD 5,000 UNIT/0.5 ML VIAL SQ SCH (05:35)
[2019-12-06] MEDS ORDERED: NITROGLYCERIN SL 0.4 MG/TAB TAB SL STA (06:18)
[2019-12-06 07:03] LABS: Basophils # (auto) 0.03 K/uL (0-0.2); Basophils % (auto) 0.5 %; Eosinophils # (auto) 0.25 K/uL (0-0.5); Eosinophils % (auto) 3.9 %; Hematocrit (blood only) 33.9 % (37-47); Hemoglobin 10.1 g/dL (12.0-16.0); Immature Granulocytes # (auto) 0.14 K/uL (0.00-0.02); Immature Granulocytes % (auto) 2.2 %; Lymphocytes # (auto) 1.65 K/uL (1.2-3.4); Lymphocytes % (auto) 25.9 %; Mean Corpuscular Hemoglobin 29.6 pg (25-34); Mean Corpuscular Hgb Conc 29.8 g/dL (32-36); Mean Corpuscular Volume 99.4 fL (80-100); Mean Platelet Volume 10.3 fL (7.4-10.4); Monocytes # (auto) 0.66 K/uL (0.11-0.59); Monocytes % (auto) 10.4 %; Neutrophils # (auto) 3.64 K/uL (1.4-6.5); Neutrophils % (auto) 57.1 %; Platelet Count 184 K/uL (130-400); RDW Coefficient of Variation 13.7 % (11.5-14.5); RDW Standard Deviation 48.8 fL (36.4-46.3); Red Blood Count 3.41 M/uL (4.2-5.4); White Blood Count 6.37 K/uL (4.8-10.8)
[2019-12-06 07:14] LABS: Partial Thromboplastin Time 26.5 Seconds (21.0-31.0)
[2019-12-06 07:32] LABS: Alanine Aminotransferase 26 U/L (12-78); Albumin Level 2.5 gm/dl (3.4-5.0); Aspartate Aminotransferase 42 U/L (15-37); BUN Creatinine Ratio 9.3 (10-20); Blood Urea Nitrogen 11 mg/dl (7-18); Calcium 9.3 mg/dl (8.5-10.1); Carbon Dioxide 31 mmol/L (21-32); Chloride 108 mmol/L (98-107); Creatinine Clr Calc Pharmacy 52.6 ml/min; Est GFR (Non-African American) 50.1; Glucose 93 mg/dl (70-99); Lipase 144 U/L (73-393); Magnesium 1.9 mg/dl (1.8-2.4); Potassium 3.6 mmol/L (3.5-5.1); Sodium 142 mmol/L (136-145)
[2019-12-06 07:36] LABS: Albumin Globulin Ratio 0.7 (0.9-2); Alkaline Phosphatase 141 U/L (45-117); Bilirubin,Total 0.1 mg/dl (0.2-1); Globulin 3.8 gm/dl (2.5-4.0); Total Protein 6.3 gm/dl (6.4-8.2); Troponin I < 0.015 ng/ml (0-0.045)
[2019-12-06] MEDS: METOPROLOL SUCC 50MG EXT REL TAB PO SCH (08:06)
[2019-12-06] MEDS: OXcarbazepine 150 MG TABLET PO SCH (08:06)
[2019-12-06] MEDS: PANTOprazole 40 MG TAB PO SCH (08:06)
[2019-12-06] MEDS: GABAPENTIN 300 MG CAP PO SCH ×2 (08:06→13:22)
[2019-12-06] MEDS: FERROUS SULFATE 325 MG TAB PO SCH (08:06)
[2019-12-06] MEDS: CHOLECALCIFEROL 1,000 UNITS 25 MCG TAB PO SCH (08:07)
[2019-12-06] MEDS: DULOXETINE HCL 60 MG CAP PO SCH (08:12)
--- NOTE | 2019-12-06 12:19 | Hospitalist Progress Note ---
Date of Service December 06, 2019 Assessment & Plan (1) Pyelonephritis: (2) Vomiting: Complicated pyelonephritis CT abdomen pelvis showing bilateral nonobstructing nephrolithiasis with urothelial thickening of inferior pole of left kidney Urine culture growing pansensitive E. coli Renal ultrasound does show bilateral renal cysts left larger than right with bilateral nephrolithiasis without hydronephrosis. Continue IV abx with Ceftriaxone, will de-escalate to Cefdinir 300mg BID to complete 2 weeks course of treatment Pain improves significantly (3) GERD (gastroesophageal reflux disease): Continue PPI (4) CKD (chronic kidney disease), stage III: PERRI on CKD 3. Creatinine is 1.57 on admission Creatinine is 1.1 Resolved (5) Depression: Stable Continue home medication (6) COPD (chronic obstructive pulmonary disease): CALI She does not use BiPAP/CPAP at home as she cannot tolerate the machine and would not want to use in the hospital. Continue on oxygen supplement Stable (7) DM type 2 (diabetes mellitus, type 2): Home metformin on hold while inpatient Carbohydrate controlled diet Glucose well controlled Insulin sliding scale per protocol DVT prophylaxis Heparin subcu Admission and Anticipated Discharge Date Admission Date: December 01, 2019 Subjective Pt was seen and examined Lying in bed with no distress Pt said that she feels fine She said that pain improves Denies any chest pain, palpitation, dizziness and SOB Physical Exam Physical Exam: General- No acute distress Head- atraumatic Eyes- PERRL, EOMI, ENT- oropharynx clear Neck- supple, no JVD Lungs- No wheezing Heart- regular rhythm; no murmur Abdomen- normal bowel sounds, soft, nontender Extremities- no calf tenderness Neuro- alert, oriented x 3; PERRL, EOMI; no facial palsy; no dysarthria Skin- warm & dry Results & Data ([facility]) Vital Signs (Past 12 Hours) Vital Signs Temp Pulse Pulse Resp BP Pulse Ox 12/06/19 12:00 36.5 C 88 20 106/76 95 12/06/19 11:27 36.5 C 88 20 106/76 95 12/06/19 08:12 36.8 C 74 20 88/55 L 98 12/06/19 08:02 36.6 C 12/06/19 07:19 38 C H 80 22 190/83 H 90 12/06/19 07:18 78 02/27/20 03:35 36.7 C 69 18 93/61 L 91 (1) Vomiting Nausea presence: with nausea Vomiting Intractability: non-intractable Vomiting type: unspecified Qualified Code(s): R11.2 - Nausea with vomiting, unspecified
[2019-12-06] MEDS ORDERED: CEFDINIR 300 MG CAP PO SCH (13:00)
--- NOTE | 2019-12-06 19:01 | Electrocardiogram Report ---
Test Reason : Blood Pressure : / mmHG Vent. Rate : 069 BPM Atrial Rate : 069 BPM P-R Int : 168 ms QRS Dur : 066 ms QT Int : 362 ms P-R-T Axes : -02 022 030 degrees QTc Int : 387 ms Normal sinus rhythm Low voltage QRS Abnormal ECG When compared with ECG of 01-DEC-2019 07:56, Vent. rate has decreased BY 43 BPM Non-specific change in ST segment in Lateral leads Nonspecific T wave abnormality no longer evident in Lateral leads Confirmed by Jas Lazcano ([id number]) on 12/06/2019 7:00:47 PM Referred By: REFERRED SELF Confirmed By:Efrem Lazcano
--- NOTE | 2019-12-08 07:54 | Discharge Summary ---
Date of Service December 06, 2019 Admission HPI Per Admitting Provider CHIEF COMPLAINT: Nausea, belly pain, flank pain. HISTORY OF PRESENT ILLNESS: This is a 64-year-old female with past medical history significant for type 2 diabetes; COPD; chronic respiratory failure with hypoxia; hyperlipidemia; obesity; bronchiectasis without complication; history of oropharyngeal dysphagia, the patient says when she eats meat she gets choked; history of pneumonia in the past; sleep apnea; moderate persistent asthma; hypertension; diastolic dysfunction; reflux esophagitis; obesity; chronic kidney disease stage III; degenerative disk disease; iron deficiency anemia; history of colon cancer; anxiety; history of kidney stones; presents with not feeling well. The patient states since last 3 days, she has been having abdominal discomfort ,nausea and left flank pain and fever at home. She did not check the fever. She lives alone. She walks with a cane and walker. She has a caregiver who comes twice daily to home. Because of ongoing symptoms, she came to the hospital. She is hemodynamically stable, no leukocytosis, but UA is positive. CAT scan showing possible pyelonephritis. Chest x-ray is unremarkable. THE PATIENT IS ALLERGIC TO NARCOTIC PAIN MEDICATION, but because of pain she received some fentanyl in Er and then developed some throat discomfort and itchiness. In the ER, was ordered IV Benadryl.. Flu is negative. Has some headache and lightheadedness. No blurred vision, no earache, no runny nose. Has some sore throat now due to pain medications. No cough. She also complained of some chest heaviness going on for the last 3 days. No shortness of breath. Also had some diarrhea. No blood in stool or black stools present. No hematuria, no burning micturition. No rash. Admission Exam Per Admitting Provider GENERAL: The patient is morbidly obese, not in acute distress. VITAL SIGNS: Temperature 37, pulse 97, respiratory rate 14, blood pressure 117/81 97% on 2 liters. HEENT: No pallor, no icterus. Pupils equal, round, reactive to light. NECK: No JVD, no masses, no carotid bruits. CARDIOVASCULAR: S1, S2 heard. Regular rate and rhythm. No murmur, no gallop. RESPIRATORY SYSTEM: Normal AP diameter. No accessory muscle use. No wheezing, no crackles. ABDOMEN: Soft, bowel sounds present, some mild abdominal discomfort. Left CVA tenderness present with no guarding, no rigidity. CENTRAL NERVOUS SYSTEM: Cranial nerves II-XII grossly intact, nonfocal. EXTREMITIES: No edema, no erythema. Principal Diagnosis (1) Pyelonephritis: (2) Vomiting: (3) GERD (gastroesophageal reflux disease): (4) CKD (chronic kidney disease), stage III (5) Depression: (6) COPD (chronic obstructive pulmonary disease): (7) DM type 2 (diabetes mellitus, type 2): Discharge Exam General- No acute distress Head- atraumatic Eyes- PERRL, EOMI, ENT- oropharynx clear Neck- supple, no JVD Lungs- No wheezing Heart- regular rhythm; no murmur Abdomen- normal bowel sounds, soft, nontender Extremities- no calf tenderness Neuro- alert, oriented x 3; PERRL, EOMI; no facial palsy; no dysarthria Skin- warm & dry Discharge Data Allergies Allergy/AdvReac Type Severity Reaction Status Date / Time salicylates Allergy Severe SHORTNESS Verified 11/30/19 21:20 OF BREATH Iodinated Contrast Media Allergy Intermediate EYES Verified 11/30/19 21:20 SWELLING/Hives meperidine Allergy Intermediate ITCH Verified 11/30/19 21:20 morphine Allergy Intermediate ITCH Verified 11/30/19 21:20 amoxicillin [From Augmentin] Allergy Mild Rash Verified 11/30/19 21:20 aspirin Allergy Mild FACIAL Verified 11/30/19 21:20 SWELLING clavulanic acid Allergy Mild Rash Verified 11/30/19 21:20 [From Augmentin] hydromorphone Allergy Mild RASH/ITCHIN Verified 11/30/19 21:20 G fentanyl Allergy itching/felt Verified 12/01/19 01:10 like throat closing tramadol AdvReac Mild itch Verified 11/30/19 21:20 Consultations 11/30/19 22:39 ED Decision to Admit Stat 12/01/19 04:15 Consult Case Management - Discharge Planning Routine Ordered Studies 11/30/19 19:27 CT abd pelvis wo con Stat 12/03/19 11:30 US renal/blad retro comp Routine ABDOMEN AND PELVIS CT WITHOUT CONTRAST CT DOSE: 1245.97 mGy.cm HISTORY: Acute left-sided flank pain with vomiting left flank pain, vomiting. hx of stones and pyelo TECHNIQUE: Multiaxial CT images of the abdomen and pelvis were performed without contrast. A dose lowering technique was utilized adhering to the principles of ALARA. COMPARISON STUDY: CT abdomen and pelvis 07/21/2019 FINDINGS: Calcified pierre limit of the lung bases. There is symmetric subpleural reticulation with groundglass densities of the left lung base suggest probable atelectasis/scarring. There are a few nodular foci of the inferior segment lingula measuring up to 4 mm which are likely benign. No pneumatosis or pneumoperitoneum. Imaged inferior cardiac chambers are unremarkable. Limited evaluation of the solid abdominal organs without the use of IV contrast. There is suggestion of mild hepatic steatosis. No focal hepatic mass lesion or evidence of cirrhosis. Spleen measures the upper limits of normal in size. Pancreas and adrenal glands are unremarkable. Cholecystectomy. Probable cyst of the anterior interpolar right kidney, 1.5 cm. There are least 3 nonobstructing calculi of the right kidney measuring up to 4 mm. Atrophy with multifocal cortical scarring and parenchymal thinning of the left kidney redemonstrated with multiple parenchymal calcifications. Calcifications of the inferior pole left kidney redemonstrated measuring up to approximately 1.5 cm. Large cyst of the superior pole left kidney measures up to at least 8 cm. There are no ureteral calculi or obstructive uropathy identified. Mild urothelial thickening of the inferior pole left kidney is suggested. Wall thickening of the urinary bladder with partial distention. Hysterectomy. No adnexal mass lesion. Aorta and IVC are unremarkable. There is no adenopathy. Moderate hiatal hernia. No bowel obstruction or bowel wall thickening. Postoperative changes from prior subtotal colectomy. Diastases recti with multiple small fat filled ventral abdominal wall hernias. Portions of small bowel partially extend into several the hernia is. Atrophy of the rectus sheath. Degenerative changes of the spine. IMPRESSION: 1. No ureteral calculi or obstructive uropathy. 2. Left greater and right nonobstructing bilateral nephrolithiasis with chronic changes of the left kidney redemonstrated. Additionally, there is suggestion of mild urothelial thickening of the inferior pole left kidney. Correlate with urinalysis. 3. Moderate hiatal hernia. 4. No bowel obstruction or bowel wall thickening. 5. Multiple bowel and fat filled ventral abdominal wall hernias redemonstrated. 6. Additional findings as above. ACT 112: Negative or not required by law. The above report was generated using voice recognition software. It may contain grammatical, syntax or spelling errors. Electronically signed by: Mack Calderon M.D. 11/30/2019 8:27 PM Dictated: 11/30/192016 Transcribed: 11/30/192016 XR chest 1V portable HISTORY: 64 years-old Female weakness acute weakness COMPARISON: Chest radiograph 07/25/2019 TECHNIQUE: Portable AP view of the chest FINDINGS: Cardiomediastinal and hilar silhouettes are within normal limits. Areas of chronic appearing interstitial coarsening are noted without pneumothorax, pleural effusion or overt pulmonary edema. No lobar airspace consolidation. Degenerative changes of the shoulders and spine. Possible hiatal hernia. IMPRESSION: Chronic interstitial coarsening without acute process. ACT 112: Negative or not required by law. The above report was generated using voice recognition software. It may contain grammatical, syntax or spelling errors. Electronically signed by: Mack Calderon M.D. 11/30/2019 7:37 PM Dictated: 11/30/191935 Transcribed: 11/30/191935 EXAMINATION: RENAL ULTRASOUND CLINICAL HISTORY: Pyelonephritis COMPARISON STUDY: CT scan dated November 30, 2019 FINDINGS: The right kidney measures 10.9 cm. The left kidney measures 13.2 cm. There is no evidence of hydronephrosis. There is a 12 mm right renal cyst. There are multiple left renal cysts the largest of which measures 8.4 cm. There is a 4 mm right renal calculus. Multiple lower pole left renal calculi are visualized, the largest of which measures 9 mm. No bladder abnormalities are visualized. Neither ureteral jet was visualized IMPRESSION : 1. Bilateral renal cysts, left larger than right 2. Bilateral nephrolithiasis 3. No evidence of hydronephrosis ACT 112: Negative or not required by law. Electronically signed by: Hank Coronado M.D. 12/03/2019 11:57 AM Dictated: 12/03/19 1155 Transcribed: 12/03/19 1155 Hospital Course (1) Pyelonephritis: (2) Vomiting: Complicated pyelonephritis CT abdomen pelvis showing bilateral nonobstructing nephrolithiasis with urothelial thickening of inferior pole of left kidney Urine culture growing pansensitive E. coli Renal ultrasound does show bilateral renal cysts left larger than right with bilateral nephrolithiasis without hydronephrosis. Continue IV abx with Ceftriaxone, will de-escalate to Cefdinir 300mg BID to complete 2 weeks course of treatment Pain improves significantly (3) GERD (gastroesophageal reflux disease): Continue PPI (4) CKD (chronic kidney disease), stage III: PERRI on CKD 3. Creatinine is 1.57 on admission Creatinine is 1.1 Resolved (5) Depression: Stable Continue home medication (6) COPD (chronic obstructive pulmonary disease): CALI She does not use BiPAP/CPAP at home as she cannot tolerate the machine and would not want to use in the hospital. Continue on oxygen supplement Stable (7) DM type 2 (diabetes mellitus, type 2): Home metformin on hold while inpatient Carbohydrate controlled diet Glucose well controlled Insulin sliding scale per protocol DVT prophylaxis Heparin subcu Total Time Total Time Spent Total Time Spent (In Minutes): 35 minutes Total Time Includes: Examination of the Patient, Discharge Planning, Medication Reconciliation, Communication With Other Providers and Other Discharge Plan Discharge Items Patient Disposition: Home - Home Health Services Reason For Visit: ILLNESS Discharge Diagnosis: (1) Pyelonephritis: (2) Vomiting: (3) GERD (gastroesophageal reflux disease): (4) CKD (chronic kidney disease), stage III (5) Depression: (6) COPD (chronic obstructive pulmonary disease): (7) DM type 2 (diabetes mellitus, type 2): Activity: Resume your previous activity Non-emergency contact: Primary Care Provider Call non-emergency contact if: you have any medication questions and your temperature is above 101 Follow-up/Referrals: Toño Naidu MD [Primary Care Provider] - 12/10/19 12:45 pm (Dr. El) Diet: Carb Consistent or DM2 Addtl Attending Provider Instructions: Follow up with your primary care provider Dr. Naidu in 1 week Complete the course of antibiotic Continue oxygen supplement Please hold next dose of narcotic if you develop any drowsiness and lethargy Fall precaution Pending Studies at Discharge: No Stand-Alone Forms: My [facility], Smoking Cessation Medications and DC Order Prescriptions: New oxycodone 5 mg Tablet 5 mg PO Q12H PRN (Reason: pain) Qty: 10 RF: 0 cefdinir 300 mg capsule 300 mg PO Q12H 7 Days Qty: 14 RF: 0 Continued metoprolol succinate 50 mg tablet extended release 24 hr 50 mg PO BID RF: 0 albuterol sulfate 90 mcg/actuation Hfa Aerosol Inhaler 2 puff INHALATION Q4H PRN (Reason: Shortness Of Breath) RF: 0 magnesium oxide 400 mg magnesium Tablet 400 mg PO HS RF: 0 doxepin 100 mg capsule 100 mg PO HS RF: 0 ferrous sulfate 325 mg (65 mg iron) tablet 325 mg PO BID RF: 0 metformin 500 mg tablet extended release 24 hr 500 mg PO QAM RF: 0 atorvastatin [Lipitor] 40 mg Tablet 40 mg PO QPM RF: 0 clopidogrel [Plavix] 75 mg Tablet 75 mg PO QPM RF: 0 pantoprazole [Protonix] 40 mg Tablet,Delayed Release (Dr/Ec) 40 mg PO BID RF: 0 gabapentin 300 mg Capsule 300 mg PO TID RF: 0 hydroxyzine HCl 25 mg Tablet 25 mg PO BID PRN (Reason: Anxiety) RF: 0 riboflavin (vitamin B2) 400 mg Tablet 400 mg PO QPM RF: 0 duloxetine 60 mg Capsule,Delayed Release(Dr/Ec) 60 mg PO QAM RF: 0 oxcarbazepine 300 mg tablet 300 mg PO BID RF: 0 cholecalciferol (vitamin D3) [Vitamin D3] 2,000 unit Capsule 2,000 unit PO QAM RF: 0 Discharge Orders: Discharge Order (Routine); Ordered 12/06/19 Ordered By: Yesica Gradne Admission Data Admit Date/Time: 12/01/19 01:43 Attending Provider: Yesica Grande Admit Provider: He Stack Primary Care Provider: Toño aNidu Other Providers: He Stack ; Anahi Moore I. Other Interventions: Discharge Summary Assessment (RN) Last Done: 12/06/19 12:00 DC Date/Time DO NOT enter until pt leaves facility: 12/06/19 14:02
== END 2019-12-06 14:02 | disposition home health service (06) | DRG 690 ==
LOC: ED 19:06 → SUATTDRO 12-01 01:43 → 2W 12-01 01:43

== ENCOUNTER 2020-02-05 12:06 | Inpatient (IN) ==
[2020-02-05] MEDS ORDERED: SODIUM CHLORIDE 0.9% 1000ML 1,000 ML IV ONE (12:42)
[2020-02-05] MEDS ORDERED: CEFEPIME 2,000 MG/20 ML VIAL IV STA (12:47)
[2020-02-05] MEDS ORDERED: ACETAMINOPHEN 1,000 MG/100 ML VIAL IV STA (12:47)
[2020-02-05] MEDS ORDERED: ONDANSETRON INJ 2 MG/ML 2 ML VIAL IV STA (12:47)
[2020-02-05] MEDS ORDERED: fentaNYL citrate 100 MCG/2 ML VIAL IV PRN (12:47)
--- NOTE | 2020-02-05 12:56 | Emergency Department Note ---
Impression & Plan Sepsis, Tachycardia, Fever, Left sided abdominal pain ED Provider Note NAME: NAYELI GUERRERO AGE: 64 SEX: F : 1955 ARRIVES VIA: Ambulance INFORMANT: [Patient][ems, nursing] ED PROVIDER(S): [Caesar Murray MD] CHIEF COMPLAINT: Fever, chest pain HISTORY OF PRESENT ILLNESS: The patient is a 64-year-old female who presents with 3 days of symptoms. She has had 7/10, constant, nonradiating chest pain that she describes as a pressure. Nothing makes her chest pain better or worse. Has had a fever, she has had a dry mouth. She has had a headache. The headache is mild in severity. She also has noticed some left-sided abdominal pain that is moderate in lizabeth rity. The abdominal pain is made worse with eating. The patient denies increased cough, sore throat, stuffy nose. She has not had vomiting or diarrhea. She denies urinary complaints. The patient presents by EMS. She states that she was sent in by her at home health care provider. The patient states that she has been at home, there has been no travel, she has had no known coronavirus exposures. The patient does wear oxygen at all times, 2 L. She has COPD. She does not feel any more short of breath than baseline. REVIEW OF SYSTEMS: See HPI for pertinent positives and negatives. A total of ten systems were reviewed and were otherwise negative. PMHx/PSHx: See Below SOCIAL HISTORY: See Below. PHYSICAL EXAM: GENERAL: Patient is in no acute distress. HEENT: No acute trauma, normocephalic atraumatic, mucous membranes dry, no nasal congestion, no scleral icterus. NECK: No stridor, no adenopathy, no meningismus, trachea is midline. LUNGS: No respiratory distress, equal breath sounds, no wheezing. Occasional crackles at the right base HEART: Tachycardic, slightly irregular rhythm. No murmurs heard. ABDOMEN: Soft, moderately tender along the entire left side of the abdomen, no mass, bowel sounds positive, no hernias, no peritonitis. EXTREMITIES: No cyanosis or edema, full range of motion of all the joints without pain or difficulty, no signs for acute trauma. NEUROLOGIC: Oriented x 3, no acute motor or sensory deficits, no focal weakness. SKIN: No rash, no jaundice, no diaphoresis. Warm to the touch. DIFFERENTIAL DIAGNOSIS: Sepsis, UTI, pneumonia, metabolic, electrolyte abnormalities, cardiac sources, coronavirus, intracerebral event, toxicologic, neurologic, as well as other pathologies. EMERGENCY DEPARTMENT COURSE/PROCEDURES: ECG: Indication was tachycardia. The EKG shows a very poor baseline with artifact. The rhythm appears to be a sinus tachycardia with a rate of159. There are no PVCs, no obvious ST elevation. The QTc is 520. Continuous Cardiac Monitoring: An order was placed for continuous cardiac monitoring. The monitor shows a rate of 93 with normal sinus rhythm Critical Care Note: I have personally spent greater than 47 minutes of critical care time in the direct management of this patient. This includes bedside care, interpretation of diagnostic studies, and testing, discussion with consultants, patient, and family members, and other required patient management activities. This 47 minutes is in excess of all separately billable procedures.. MEDICAL DECISION MAKING: There is a significant leukocytosis at 18,000, this would be consistent with infection. No concerning anemia. No coagulopathy. Creatinine was somewhat elevated at 1.69, this is a bit above baseline for her. No concerning liver enzyme elevation. Procalcitonin levels and lactic acid levels were both normal making severe sepsis less likely. Influenza testing returned negative. Coronavirus testing is pending. Chest film showed some potential atelectasis, no obvious pneumonia. Abdominal and pelvis CT is pending. Urinalysis is consistent with infection versus contamination. Blood cultures are pending. An EKG was done. There was a sinus tachycardia with some baseline artifact, no acute ischemia. Cardiac enzyme testing x1 did not show any significant cardiac injury. The patient received IV saline, 1.5 L. She was given IV Zofran for nausea, IV fentanyl for pain. She received IV Tylenol and IV cefepime. The patient presents with fever and I do think meets criteria for sepsis. At this point, the source of the infection is not clear, although, with the questionable urinary results, UTI is a consideration. Patient's heart rate has improved, she seems to be resting more comfortably. I do think a hospital stay is warranted. She has been kept under aerosolized respiratory precautions. I spoke to the patient about her results, she understands that there are some test still pending. She is in agreement with a hospital stay. I did speak with case management. The on-call hospitalist has been consulted. Past Med/Surg History Medical History Anxiety Asthma Bladder infection CHF (congestive heart failure) Chronic back pain Chronic headaches Chronic kidney disease FOLLOWS W/ DR. JASON Chronic renal insufficiency COPD (chronic obstructive pulmonary disease) Deep vein thrombosis LLE - COULD NOT RECALL DATE - REPORTS SHE WAS TREATED AT [facility] W/ BLOOD THINNERS Degenerative disc disease Depression Diabetes mellitus, type 2 GERD (gastroesophageal reflux disease) History of colon cancer 2012 S/P BOWEL RESECTION. Hyperlipidemia Hypertension Kidney stones Morbid obesity with BMI of 40.0-44.9, adult Myocardial Infarction 03/2018--> [facility] -- CARDIAC CATH --> NO STENTS/ANGIOPLASTY PER PT REPORT -- POOR HISTORIAN? REPORTS SHE IS ON PLAVIX FOR HEART - DENIES STENTS - DENIES ARRHYTHMIA - FOLLOWS W/ DR. TORRES On anticoagulant therapy plavix daily On home oxygen therapy 2L N/C at all times Osteoarthritis Poor historian Surgical History H/O hand surgery RIGHT History of appendectomy History of bilateral cataract extraction History of blepharoplasty History of bowel resection d/t colon cancer History of cardiac cath 03/2018 - [place] - DENIES STENTS/ANGIOPLASTY - [facility] - FOLLOWS W/ DR. TORRES History of colonoscopy History of cystoscopy History of esophagogastroduodenoscopy (EGD) History of kidney surgery at age 9 yrs "something was wrong and had to fix it" History of lithotripsy History of tooth extraction History of total abdominal hysterectomy and bilateral salpingo-oophorectomy Hx of cholecystectomy Family History Other No pertinent family history in first degree relatives Social History Preferred Language: Bermudian Communication Ability: Effective [employer] Required: No Beliefs That Will Affect Care: None marital status: Current Living Situation: Alone Current Living Situation Comment: Has home caregivers Other Information That Helps Us Care for You: No Feels Safe at Home: Yes Safety Concerns: Feels Safe At This Time Smoking Status: Never smoker Tobacco Type: cigarettes ; Second Hand Exposure: Yes ( smoked/daughter smoked) ; Hx Alcohol Use: No Hx Substance Use: No Allergies Allergies Allergy/AdvReac Type Severity Reaction Status Date / Time salicylates Allergy Severe SHORTNESS Verified 02/05/20 12:55 OF BREATH Iodinated Contrast Media Allergy Intermediate EYES Verified 02/05/20 12:55 SWELLING/Hives meperidine Allergy Intermediate ITCH Verified 02/05/20 12:55 morphine Allergy Intermediate ITCH Verified 02/05/20 12:55 amoxicillin [From Augmentin] Allergy Mild Rash Verified 02/05/20 12:55 aspirin Allergy Mild FACIAL Verified 02/05/20 12:55 SWELLING clavulanic acid Allergy Mild Rash Verified 02/05/20 12:55 [From Augmentin] hydromorphone Allergy Mild RASH/ITCHIN Verified 02/05/20 12:55 G fentanyl Allergy itching/felt Verified 02/05/20 12:55 like throat closing tramadol AdvReac Mild itch Verified 02/05/20 12:55 Home Meds Home Medications Medication Instructions Recorded Confirmed atorvastatin [Lipitor] 40 mg PO QPM 07/12/18 02/05/20 clopidogrel [Plavix] 75 mg PO QPM 07/12/18 02/05/20 gabapentin 300 mg PO TID 07/12/18 02/05/20 pantoprazole [Protonix] 40 mg PO BID 07/12/18 02/05/20 riboflavin (vitamin B2) 400 mg PO QPM 07/12/18 02/05/20 duloxetine 60 mg PO QAM 10/16/18 02/05/20 cholecalciferol (vitamin D3) 2,000 unit PO QAM 05/16/19 02/05/20 [Vitamin D3] oxcarbazepine 300 mg PO BID 05/16/19 02/05/20 albuterol sulfate 2 puff INHALATION Q4H PRN 07/21/19 02/05/20 metoprolol succinate 50 mg PO BID 07/21/19 02/05/20 magnesium oxide 400 mg PO HS 10/05/19 02/05/20 doxepin 100 mg PO HS 11/30/19 02/05/20 ferrous sulfate 325 mg PO BID 11/30/19 02/05/20 metformin 500 mg PO QAM 11/30/19 02/05/20 Previous Rx's Medication Instructions Recorded Saccharomyces boulardii [Florastor] 250 mg PO BID #20 cap 01/14/20 ondansetron 4 mg PO Q6H PRN #14 tab 01/14/20 Results & Data (ED) Vital Signs Vital Signs - 24 hr 02/05/20 12:15 02/05/20 13:14 02/05/20 14:21 Temperature 38.3 C H Temperature Source Oral Pulse Rate 133 H Pulse Rate [Finger] 117 H 98 H Respiratory Rate 16 20 20 Respiratory Effort / Characteristics Non-Labored Respiratory Depth Normal Normal Blood Pressure 102/59 L Blood Pressure [Left Arm] 121/87 103/71 Blood Pressure Mean 73 Blood Pressure Mean [Left Arm] 98 81 Pulse Oximetry 92 99 99 Oxygen Delivery Method Room Air Nasal Cannula Nasal Cannula Oxygen Flow Rate 2 Sepsis Recent Fever Within 48 Hours No Sepsis New/Unexplained Change in Mental Status No Sepsis Action Taken by Nursing No Action Required Home Medications Current Medication List: was personally reviewed by me Laboratory Data Attestation: I reviewed the patient's lab results. Result diagrams: 02/05/20 12:30 02/05/20 12:30 Lab Results 02/05/20 02/05/20 02/05/20 Range/Units 12:13 12:30 12:30 WBC 18.97 H (4.8-10.8) K/uL RBC 4.13 L (4.2-5.4) M/uL Hgb 12.3 (12.0-16.0) g/dL Hct 39.4 (37-47) % MCV 95.4 (80-100) fL MCH 29.8 (25-34) pg MCHC 31.2 L (32-36) g/dL RDW Std Deviation 47.6 H (36.4-46.3) fL RDW Coeff of Teresa 13.8 (11.5-14.5) % Plt Count 240 (130-400) K/uL MPV 10.8 H (7.4-10.4) fL Immature Gran % (Auto) 0.3 % Neut % (Auto) 85.5 % Lymph % (Auto) 6.3 % [place] % (Auto) 6.6 % Eos % (Auto) 1.1 % Baso % (Auto) 0.2 % Immature Gran # (Auto) 0.05 H (0.00-0.02) K/uL Neut # (Auto) 16.25 H (1.4-6.5) K/uL Lymph # (Auto) 1.19 L (1.2-3.4) K/uL [place] # (Auto) 1.25 H (0.11-0.59) K/uL Eos # (Auto) 0.20 (0-0.5) K/uL Baso # (Auto) 0.03 (0-0.2) K/uL PT (9.0-12.0) Seconds INR (0.9-1.1) APTT (21.0-31.0) Seconds PTT Ratio Sodium (136-145) mmol/L Potassium (3.5-5.1) mmol/L Chloride (98-107) mmol/L Carbon Dioxide (21-32) mmol/L Anion Gap (3-11) BUN (7-18) mg/dl Creatinine (0.6-1.2) mg/dl Est Cr Clr Drug Dosing ml/min Est GFR ( Amer) Est GFR (Non-Af Amer) BUN/Creatinine Ratio (10-20) Glucose (70-99) mg/dl Lactate (0.4-2.0) mmol/L Calcium (8.5-10.1) mg/dl Magnesium (1.8-2.4) mg/dl Total Bilirubin (0.2-1) mg/dl AST (15-37) U/L ALT (12-78) U/L Alkaline Phosphatase (45-117) U/L Troponin I (0-0.045) ng/ml Total Protein (6.4-8.2) gm/dl Albumin (3.4-5.0) gm/dl Globulin (2.5-4.0) gm/dl Albumin/Globulin Ratio (0.9-2) Procalcitonin 0.09 (0-0.5) ng/ml Influenza Type A (PCR) Neg for Influ A (Neg) Influenza Type B (PCR) Neg for Influ B (Neg) 02/05/20 02/05/20 02/05/20 Range/Units 12:30 12:30 13:38 WBC (4.8-10.8) K/uL RBC (4.2-5.4) M/uL Hgb (12.0-16.0) g/dL Hct (37-47) % MCV (80-100) fL MCH (25-34) pg MCHC (32-36) g/dL RDW Std Deviation (36.4-46.3) fL RDW Coeff of Teresa (11.5-14.5) % Plt Count (130-400) K/uL MPV (7.4-10.4) fL Immature Gran % (Auto) % Neut % (Auto) % Lymph % (Auto) % [place] % (Auto) % Eos % (Auto) % Baso % (Auto) % Immature Gran # (Auto) (0.00-0.02) K/uL Neut # (Auto) (1.4-6.5) K/uL Lymph # (Auto) (1.2-3.4) K/uL [place] # (Auto) (0.11-0.59) K/uL Eos # (Auto) (0-0.5) K/uL Baso # (Auto) (0-0.2) K/uL PT 10.4 (9.0-12.0) Seconds INR 1.0 (0.9-1.1) APTT 23.2 (21.0-31.0) Seconds PTT Ratio 0.8 Sodium 141 (136-145) mmol/L Potassium 3.9 (3.5-5.1) mmol/L Chloride 111 H (98-107) mmol/L Carbon Dioxide 21 (21-32) mmol/L Anion Gap 9.0 (3-11) BUN 19 H (7-18) mg/dl Creatinine 1.69 H (0.6-1.2) mg/dl Est Cr Clr Drug Dosing 35.1 ml/min Est GFR ( Amer) 36.1 Est GFR (Non-Af Amer) 31.1 BUN/Creatinine Ratio 11.1 (10-20) Glucose 146 H (70-99) mg/dl Lactate 1.6 (0.4-2.0) mmol/L Calcium 9.2 (8.5-10.1) mg/dl Magnesium 1.9 (1.8-2.4) mg/dl Total Bilirubin 0.3 (0.2-1) mg/dl AST 15 (15-37) U/L ALT 22 (12-78) U/L Alkaline Phosphatase 136 H (45-117) U/L Troponin I < 0.015 (0-0.045) ng/ml Total Protein 7.7 (6.4-8.2) gm/dl Albumin 3.1 L (3.4-5.0) gm/dl Globulin 4.6 H (2.5-4.0) gm/dl Albumin/Globulin Ratio 0.7 L (0.9-2) Procalcitonin (0-0.5) ng/ml Influenza Type A (PCR) (Neg) Influenza Type B (PCR) (Neg) Administered Medications Sodium Chloride (Nss 1000ml) 1,000 mls @ 125 mls/hr IV .Q8H MARLA Stop: 03/06/20 16:09 Last Admin: 02/05/20 17:27 Dose: 125 mls/hr Documented by: [id number] Insulin Aspart (Novolog Flexpen) 0 units SC ACHS MARLA Stop: 03/06/20 17:29 Last Admin: 02/05/20 17:50 Dose: Not Given Documented by: [id number] Cosigned by: [id number] Discontinued Medications Sodium Chloride (Nss 1000ml) 1,000 mls @ 999 mls/hr IV .Q1H1M ONE Stop: 02/05/20 13:42 Last Infusion: 02/05/20 14:21 Dose: 0 mls/hr Documented by: [id number] Admin: 02/05/20 13:10 Dose: 999 mls/hr Documented by: [id number] Cefepime HCl (Maxipime) 2,000 mg in 20 mls @ 5 mls/min IV NOW STA; Protocol Stop: 02/05/20 12:50 Last Admin: 02/05/20 13:10 Dose: 5 mls/min Documented by: [id number] Acetaminophen (Ofirmev) 1,000 mg in 100 mls @ 400 mls/hr IV NOW STA Stop: 02/05/20 13:01 Last Infusion: 02/05/20 13:31 Dose: 0 mls/hr Documented by: [id number] Admin: 02/05/20 13:11 Dose: 400 mls/hr Documented by: [id number] Sodium Chloride (Nss 1000ml) 500 mls @ 999 mls/hr IV .Q31M ONE Stop: 02/05/20 14:55 Last Infusion: 02/05/20 17:31 Dose: 0 mls/hr Documented by: [id number] Admin: 02/05/20 16:40 Dose: 999 mls/hr Documented by: [id number] Piperacillin Sod/Tazobactam (Sod 4.5 gm/ Dextrose) 120 mls @ 200 mls/hr IV NOW ONE; Protocol Stop: 02/05/20 17:05 Last Infusion: 02/05/20 18:21 Dose: 0 mls/hr Documented by: [id number] Admin: 02/05/20 17:31 Dose: 200 mls/hr Documented by: [id number] Ondansetron HCl (Zofran) 4 mg IV NOW STA Stop: 02/05/20 12:48 Last Admin: 02/05/20 13:10 Dose: 4 mg Documented by: [id number] Imaging Data Radiologist's Impression: XR chest 1V portable HISTORY: 64 years-old Female SEPSIS acute sepsis COMPARISON: Chest radiograph 11/30/2019, CT abdomen and pelvis 01/14/2020 TECHNIQUE: Portable AP view of the chest FINDINGS: Cardiac silhouette is normal in size. There is mild pulmonary vascular congestion. Mild chronic interstitial coarsening. Small hiatal hernia. Minimal bibasilar opacities are noted without pneumothorax, large pleural effusion or overt pulmonary edema. IMPRESSION: 1. Chronic interstitial coarsening is noted with suspicious mild pulmonary vascular congestion. 2. Mild bibasilar densities are suggestive of probable atelectasis. 3. Small hiatal hernia. Discharge Plan Visit Data *Final* Discharge Date/Time: 02/05/20 15:24 Chief Complaint: Illness ED Provider: Caesar Murray Discharge Problem: Sepsis, Tachycardia, Fever, Left sided abdominal pain Patient Disposition: Admitted As Inpatient Condition: Fair Discharge Instructions Interventions: ED Discharge Assessment Last Done: 02/05/20 15:24 Discharge Problem: Sepsis Qualifiers: Sepsis type: sepsis due to unspecified organism Sepsis acute organ dysfunction status: without acute organ dysfunction Qualified Code(s): A41.9 - Sepsis, u nspecified organism Fever Qualifiers: Fever type: unspecified Qualified Code(s): R50.9 - Fever, unspecified
[2020-02-05 13:05] LABS: Basophils # (auto) 0.03 K/uL (0-0.2); Basophils % (auto) 0.2 %; Eosinophils % (auto) 1.1 %; Hematocrit (blood only) 39.4 % (37-47); Hemoglobin 12.3 g/dL (12.0-16.0); Immature Granulocytes # (auto) 0.05 K/uL (0.00-0.02); Immature Granulocytes % (auto) 0.3 %; Lymphocytes # (auto) 1.19 K/uL (1.2-3.4); Lymphocytes % (auto) 6.3 %; Mean Corpuscular Hemoglobin 29.8 pg (25-34); Mean Corpuscular Hgb Conc 31.2 g/dL (32-36); Mean Corpuscular Volume 95.4 fL (80-100); Mean Platelet Volume 10.8 fL (7.4-10.4); Monocytes # (auto) 1.25 K/uL (0.11-0.59); Monocytes % (auto) 6.6 %; Neutrophils # (auto) 16.25 K/uL (1.4-6.5); Neutrophils % (auto) 85.5 %; Platelet Count 240 K/uL (130-400); RDW Coefficient of Variation 13.8 % (11.5-14.5); RDW Standard Deviation 47.6 fL (36.4-46.3); Red Blood Count 4.13 M/uL (4.2-5.4); White Blood Count 18.97 K/uL (4.8-10.8)
[2020-02-05 13:11] LABS: Alanine Aminotransferase 22 U/L (12-78); Albumin Level 3.1 gm/dl (3.4-5.0); Aspartate Aminotransferase 15 U/L (15-37); BUN Creatinine Ratio 11.1 (10-20); Blood Urea Nitrogen 19 mg/dl (7-18); Calcium 9.2 mg/dl (8.5-10.1); Carbon Dioxide 21 mmol/L (21-32); Chloride 111 mmol/L (98-107); Creatinine Clr Calc Pharmacy 35.1 ml/min; Est GFR (African American) 36.1; Est GFR (Non-African American) 31.1; Glucose 146 mg/dl (70-99); Magnesium 1.9 mg/dl (1.8-2.4); Potassium 3.9 mmol/L (3.5-5.1); Sodium 141 mmol/L (136-145)
[2020-02-05 13:14] LABS: Partial Thromboplastin Ratio 0.8; Partial Thromboplastin Time 23.2 Seconds (21.0-31.0); Prothrombin Time 10.4 Seconds (9.0-12.0)
[2020-02-05 13:16] LABS: Albumin Globulin Ratio 0.7 (0.9-2); Alkaline Phosphatase 136 U/L (45-117); Bilirubin,Total 0.3 mg/dl (0.2-1); Globulin 4.6 gm/dl (2.5-4.0); Total Protein 7.7 gm/dl (6.4-8.2); Troponin I < 0.015 ng/ml (0-0.045)
--- NOTE | 2020-02-05 13:17 | XRay Report ---
XR chest 1V portable HISTORY: 64 years-old Female SEPSIS acute sepsis COMPARISON: Chest radiograph 11/30/2019, CT abdomen and pelvis 01/14/2020 TECHNIQUE: Portable AP view of the chest FINDINGS: Cardiac silhouette is normal in size. There is mild pulmonary vascular congestion. Mild chronic inter stitial coarsening. Small hiatal hernia. Minimal bibasilar opacities are noted without pneumothorax, large pleural effusion or overt pulmonary edema. IMPRESSION: 1. Chronic interstitial coarsening is noted with suspicious mild pulmonary vascular congestion. 2. Mild bibasilar densities are suggestive of probable atelectasis. 3. Small hiatal hernia. ACT 112: Negative or not required by law. The above report was generated using voice recognition software. It may contain grammatical, syntax o r spelling errors. Electronically signed by: Mack Calderon M.D. 02/05/2020 1:15 PM
[2020-02-05 13:41] LABS: Influenza A virus by PCR Neg for Influ A (Neg); Influenza B virus by PCR Neg for Influ B (Neg)
[2020-02-05] MEDS ORDERED: SODIUM CHLORIDE 0.9% 1000ML 500 ML IV ONE (14:25)
--- NOTE | 2020-02-05 15:58 | Electrocardiogram Report ---
Test Reason : Blood Pressure : / mmHG Vent. Rate : 159 BPM Atrial Rate : 159 BPM P-R Int : 210 ms QRS Dur : 056 ms QT Int : 320 ms P-R-T Axes : -05 -06 016 degrees QTc Int : 520 ms Poor data quality, interpretation may be adversely affected Sinus tachycardia with 1st degree A-V block Low voltage QRS Cannot rule out Inferior infarct Cannot rule out Anterior infarct Abnormal ECG When compared with ECG of 06-DEC-2019 06:07, Significant changes have occurred Confirmed by Kodak Mei ([id number]) on 02/05/2020 3:58:04 PM Referred By: REFERRED SELF Confirmed By:Kodak Mei
--- NOTE | 2020-02-05 16:04 | CT Scan Report ---
CT abd pelvis wo con CT DOSE: 984.18 mGycm HISTORY: left abd pain, fever, contrast allergy TECHNIQUE: Multiaxial CT images of the abdomen and pelvis were performed without contrast. A dose lo wering technique was utilized adhering to the principles of ALARA. COMPARISON STUDY: 01/14/2020 FINDINGS: Fixed hiatal hernia. Slight prominence of the interstitial markings both lung bases. Unchan ged upper pole left renal cyst. Unchanged bilateral cortical scarring as well as nonobstructing nephr ocalcinosis. Small ventral hernia containing a small nonobstructive loop of small bowel. Stable muscular atrophy l eft lateral abdominal wall. No well-defined hernia. Bowel pattern overall is nonobstructive. Prior cholecystectomy. Prior subtotal colectomy. Unchanged calcified granuloma left lung base. IMPRESSION: 1. Chronic and postoperative change. 2. No acute process. 3. No change as compared to the prior study. 4. Unchanged stable bilateral nonobstructing nephrocalcinosis and cortical scarring. ACT 112: Negative or not required by law. The above report was generated using voice recognition software. It may contain grammatical, syntax or spelling errors. Electronically signed by: Francisco Javier Marquez M.D. 02/05/2020 4:03 PM
[2020-02-05] MEDS ORDERED: GLUCOSE 40% GEL 15 GM TUBE PO PRN (16:10)
[2020-02-05] MEDS ORDERED: CONSULT PHARMACY STA (16:10)
[2020-02-05] MEDS ORDERED: DEXTROSE 50% 50 ML SYRINGE IV PRN (16:10)
[2020-02-05] MEDS ORDERED: GLUCOSE 10 TABS/TUBE PO PRN (16:10)
[2020-02-05] MEDS ORDERED: CARBOHYDRATES FOR HYPOGLYCEMIA PO PRN (16:10)
[2020-02-05] MEDS ORDERED: GLUCAGON FOR INJ 1 MG VIAL SQ PRN (16:10)
[2020-02-05] MEDS ORDERED: PIPERACILL/TAZOBAC CONSULT ACTIVE PRN (16:23)
[2020-02-05] MEDS ORDERED: PIPERACILLIN/TAZOBACTAM 4.5 GM in DEXTROSE 5% 100 ML IV ONE (16:30)
[2020-02-05] MEDS ORDERED: PHARMACY GLYCEMIC MGMT CONSULT PRN (16:34)
[2020-02-05] MEDS: SODIUM CHLORIDE 0.9% 1000ML 1,000 ML IV SCH (17:27)
[2020-02-05 17:47] LABS: Appearance Urine Cloudy (Clear); Bacteria Urine Automated Negative (Negative); Bilirubin Urine Negative (Negative); Blood Urine Trace (Negative); Color Urine Yellow; Epithelial Cell Urine Auto >30 /lpf (0-5); Glucose Urine UA Negative (Negative); Ketones Urine Negative (Negative); Leukocyte Esterase Urine 2+ (Negative); Nitrite Urine Negative (Negative); Protein Urine 1+ (Negative); RBC Urine Automated 0-4 /hpf (0-4); Specific Gravity Urine 1.022 (1.000-1.030); Urobilinogen Urine Negative (Negative); WBC Urine Automated >30 /hpf (0-5); pH Urine 5.5 (4.5-7.5)
[2020-02-05] MEDS: INSULIN ASPART 100 UNITS/ML 3 ML PEN SC SCH ×2 (17:50→21:19)
--- NOTE | 2020-02-05 17:50 | History & Physical Report ---
Date of Service February 05, 2020 Assessment & Plan (1) Sepsis: 64 year old female with history of Nephrolithiasis, E coli UTI, DM 2, CKD 3, GERD, Depression, COPD, Chronic Respiratory Failure presenting with abdominal pain with fever. SEPSIS SECONDARY TO POSSIBLE PYELONEPHRITIS HISTORY OF RECURRENT UTI -- sepsis protocol lactate normal 1.6 -- urine culture: pending blood cultures: pending nasal MRSA: pending -- Zosyn IV for now r/o COVID -- CXR: no infiltrates -- O2 sat normal denies cough, sputum -- COVID test: pending Isolation for now EPIGASTRIC PAIN, POSSIBLY FROM HIATAL HERNIA? -- worse with food intake CT abdomen: 1. Chronic and postoperative change. 2. No acute process. 3. No change as compared to the prior study. 4. Unchanged stable bilateral nonobstructing nephrocalcinosis and cortical scarring. - continue usual Protonix PO BID NPO after midnight GI consulted -- check serial troponin as well, but suspicion for ACS is low given epigastric discomfort x 2 days already ACUTE RENAL FAILURE ON CKD 3 -- baseline crea 1.14, now 1.69 possibly from Sepsis -- IV NSS DM 2 -- hold Metformin ISS for now COPD CHRONIC RESPIRATORY FAILURE -- not in exacerbation -- at baseline 2 L nasal cannula GERD -- continue usual Protonix DEPRESSION -- hold usual Doxepin, Duloxetine, Oxcarbazepine for elevated QT mood stable DVT prophylaxis -- Heparin Subcutaneous Disposition -- anticipate d/c home when medically stable Admission and Anticipated Discharge Date Admission Date: February 05, 2020 History of Present Illness 64 year old female with history of Nephrolithiasis, E coli UTI, DM 2, CKD 3, GERD, Depression, COPD, Chronic Respiratory Failure presenting with abdominal pain with fever. Patient was admitted to [facility] last November 2019 for Pyelonephritis and had an ER visit earlier this month for possible UTI for which she was prescribed with Cefdinir course. Patient reports for the past 2 days, she is having persistent epigastric pain, "pressure", non radiating, worsened with food intake. She also reports left sided flank pain with dysuria and chills. No shortness of breath, cough, sputum, nausea or vomiting. No palpitations, dizziness. Symptoms prompted consult to ER. At the ER, patient was febrile 38.3, tachycardic 133, with WBC of 18.9. CT abdomen: no acute process UA: pending CXR: no infiltrate She was given IV fluids, Cefepime, with resolution of tachycardia. On exam, patient was seen resting in bed, comfortable, not in distress. Reports persistent epigastric pain, worse with food intake as well as left sided flank pain. No active shortness of breath, chest pain, palpitations, dizziness. No other symptoms. Primary Care Provider: Lo Chand DO Allergies Allergy/AdvReac Type Severity Reaction Status Date / Time salicylates Allergy Severe SHORTNESS Verified 02/05/20 12:55 OF BREATH Iodinated Contrast Media Allergy Intermediate EYES Verified 02/05/20 12:55 SWELLING/Hives meperidine Allergy Intermediate ITCH Verified 02/05/20 12:55 morphine Allergy Intermediate ITCH Verified 02/05/20 12:55 amoxicillin [From Augmentin] Allergy Mild Rash Verified 02/05/20 12:55 aspirin Allergy Mild FACIAL Verified 02/05/20 12:55 SWELLING clavulanic acid Allergy Mild Rash Verified 02/05/20 12:55 [From Augmentin] hydromorphone Allergy Mild RASH/ITCHIN Verified 02/05/20 12:55 G fentanyl Allergy itching/felt Verified 02/05/20 12:55 like throat closing tramadol AdvReac Mild itch Verified 02/05/20 12:55 Home Medications Home Medications Medication Instructions Recorded Confirmed Type atorvastatin [Lipitor] 40 mg PO QPM 07/12/18 02/05/20 History clopidogrel [Plavix] 75 mg PO QPM 07/12/18 02/05/20 History gabapentin 300 mg PO TID 07/12/18 02/05/20 History pantoprazole [Protonix] 40 mg PO BID 07/12/18 02/05/20 History riboflavin (vitamin B2) 400 mg PO QPM 07/12/18 02/05/20 History duloxetine 60 mg PO QAM 10/16/18 02/05/20 History cholecalciferol (vitamin D3) 2,000 unit PO QAM 05/16/19 02/05/20 History [Vitamin D3] oxcarbazepine 300 mg PO BID 05/16/19 02/05/20 History albuterol sulfate 2 puff INHALATION Q4H PRN 07/21/19 02/05/20 History metoprolol succinate 50 mg PO BID 07/21/19 02/05/20 History magnesium oxide 400 mg PO HS 10/05/19 02/05/20 History doxepin 100 mg PO HS 11/30/19 02/05/20 History ferrous sulfate 325 mg PO BID 11/30/19 02/05/20 History metformin 500 mg PO QAM 11/30/19 02/05/20 History Saccharomyces boulardii [Florastor] 250 mg PO BID #20 cap 01/14/20 02/05/20 Rx ondansetron 4 mg PO Q6H PRN #14 tab 01/14/20 02/05/20 Rx Past Med/Surg History Medical History Anxiety Asthma Bladder infection CHF (congestive heart failure) Chronic back pain Chronic headaches Chronic kidney disease FOLLOWS W/ DR. JASON Chronic renal insufficiency COPD (chronic obstructive pulmonary disease) Deep vein thrombosis LLE - COULD NOT RECALL DATE - REPORTS SHE WAS TREATED AT [facility] W/ BLOOD THINNERS Degenerative disc disease Depression Diabetes mellitus, type 2 GERD (gastroesophageal reflux disease) History of colon cancer 2012 S/P BOWEL RESECTION. Hyperlipidemia Hypertension Kidney stones Morbid obesity with BMI of 40.0-44.9, adult Myocardial Infarction 03/2018--> [facility] -- CARDIAC CATH --> NO STENTS/ANGIOPLASTY PER PT REPORT -- POOR HISTORIAN? REPORTS SHE IS ON PLAVIX FOR HEART - DENIES STENTS - DENIES ARRHYTHMIA - FOLLOWS W/ DR. TORRES On anticoagulant therapy plavix daily On home oxygen therapy 2L N/C at all times Osteoarthritis Poor historian Surgical History H/O hand surgery RIGHT History of appendectomy History of bilateral cataract extraction History of blepharoplasty History of bowel resection d/t colon cancer History of cardiac cath 03/2018 - [place] - DENIES STENTS/ANGIOPLASTY - [facility] - FOLLOWS W/ DR. TORRES History of colonoscopy History of cystoscopy History of esophagogastroduodenoscopy (EGD) History of kidney surgery at age 9 yrs "something was wrong and had to fix it" History of lithotripsy History of tooth extraction History of total abdominal hysterectomy and bilateral salpingo-oophorectomy Hx of cholecystectomy Family History Other No pertinent family history in first degree relatives Social History Preferred Language: Maltese Communication Ability: Effective Internet Marketing Analyst Required: No Beliefs That Will Affect Care: None marital status: Current Living Situation: Alone Current Living Situation Comment: Has home caregivers Other Information That Helps Us Care for You: No Feels Safe at Home: Yes Safety Concerns: Feels Safe At This Time Smoking Status: Never smoker Tobacco Type: cigarettes ; Second Hand Exposure: Yes ( smoked/daughter smoked) ; Hx Alcohol Use: No Hx Substance Use: No Review of Systems Review of Systems: All systems reviewed & are unremarkable except as noted in HPI & below Physical Exam Physical Exam: General- oriented x 3, not in distress, speaks in sentences with no effort or accessory muscle use Head- atraumatic Eyes- PERRL, EOMI, anicteric ENT- oropharynx clear Neck- supple, no JVD, no adenopathy, no thyromegaly; carotids +2/2, no bruits appreciated Lungs- clear to auscultation bilaterally, no rales/wheezes Heart- normal rate, regular rhythm; no murmur, no gallop, no rub appreciated Abdomen- normal bowel sounds, nondistended, soft, (+) mild epigastric tenderness, no masses or hepatosplenomegaly (+) Left CVA tenderness Extremities- no pretibial edema, no calf tenderness; peripheral pulses intact Neuro- alert, oriented x 3; CN 2-12 grossly intact; motor 5/5 bilaterally;sensation 100% on all extremities; no other gross focal neurologic deficits Skin- warm & dry Results & Data Results & Data ([facility]) Vital Signs (Past 12 Hours) Vital Signs Temp Pulse Pulse Resp BP BP Pulse Ox 02/05/20 17:18 113 H 02/05/20 16:43 36.9 C 113 H 20 138/97 95 02/05/20 15:23 37.1 C 93 H 16 122/72 96 02/05/20 14:21 98 H 20 103/71 99 02/05/20 13:14 117 H 20 121/87 99 02/05/20 12:15 38.3 C H 133 H 16 102/59 L 92 Laboratory Results Laboratory Results - last 24 hr 02/05/20 02/05/20 02/05/20 12:13 12:13 12:30 WBC RBC Hgb Hct MCV MCH MCHC RDW Std Deviation RDW Coeff of Teresa Plt Count MPV Immature Gran % (Auto) Neut % (Auto) Lymph % (Auto) Clinton % (Auto) Eos % (Auto) Baso % (Auto) Immature Gran # (Auto) Neut # (Auto) Lymph # (Auto) Clinton # (Auto) Eos # (Auto) Baso # (Auto) PT INR APTT PTT Ratio Sodium Potassium Chloride Carbon Dioxide Anion Gap BUN Creatinine Est Cr Clr Drug Dosing Est GFR ( Amer) Est GFR (Non-Af Amer) BUN/Creatinine Ratio Glucose POC Glucose Lactate Calcium Magnesium Total Bilirubin AST ALT Alkaline Phosphatase Troponin I Total Protein Albumin Globulin Albumin/Globulin Ratio Procalcitonin 0.09 Urine Color Urine Appearance Urine pH Ur Specific [place] Urine Protein Urine Glucose (UA) Urine Ketones Urine Blood Urine Nitrite Urine Bilirubin Urine Urobilinogen Ur Leukocyte Esterase Urine WBC (Auto) Urine RBC (Auto) U Hyaline Cast (Auto) U Epithel Cells (Auto) Urine Bacteria (Auto) Nasal Screen MRSA (PCR) Influenza Type A (PCR) Neg for Influ A Influenza Type B (PCR) Neg for Influ B SARS-CoV-2 RNA (RT-PCR) Pending 02/05/20 02/05/20 02/05/20 12:30 12:30 12:30 WBC 18.97 H RBC 4.13 L Hgb 12.3 Hct 39.4 MCV 95.4 MCH 29.8 MCHC 31.2 L RDW Std Deviation 47.6 H RDW Coeff of Teresa 13.8 Plt Count 240 MPV 10.8 H Immature Gran % (Auto) 0.3 Neut % (Auto) 85.5 Lymph % (Auto) 6.3 Clinton % (Auto) 6.6 Eos % (Auto) 1.1 Baso % (Auto) 0.2 Immature Gran # (Auto) 0.05 H Neut # (Auto) 16.25 H Lymph # (Auto) 1.19 L Clinton # (Auto) 1.25 H Eos # (Auto) 0.20 Baso # (Auto) 0.03 PT 10.4 INR 1.0 APTT 23.2 PTT Ratio 0.8 Sodium 141 Potassium 3.9 Chloride 111 H Carbon Dioxide 21 Anion Gap 9.0 BUN 19 H Creatinine 1.69 H Est Cr Clr Drug Dosing 35.1 Est GFR ( Amer) 36.1 Est GFR (Non-Af Amer) 31.1 BUN/Creatinine Ratio 11.1 Glucose 146 H POC Glucose Lactate Calcium 9.2 Magnesium 1.9 Total Bilirubin 0.3 AST 15 ALT 22 Alkaline Phosphatase 136 H Troponin I < 0.015 Total Protein 7.7 Albumin 3.1 L Globulin 4.6 H Albumin/Globulin Ratio 0.7 L Procalcitonin Urine Color Urine Appearance Urine pH Ur Specific [place] Urine Protein Urine Glucose (UA) Urine Ketones Urine Blood Urine Nitrite Urine Bilirubin Urine Urobilinogen Ur Leukocyte Esterase Urine WBC (Auto) Urine RBC (Auto) U Hyaline Cast (Auto) U Epithel Cells (Auto) Urine Bacteria (Auto) Nasal Screen MRSA (PCR) Influenza Type A (PCR) Influenza Type B (PCR) SARS-CoV-2 RNA (RT-PCR) 02/05/20 02/05/20 02/05/20 13:38 17:00 17:00 WBC RBC Hgb Hct MCV MCH MCHC RDW Std Deviation RDW Coeff of Teresa Plt Count MPV Immature Gran % (Auto) Neut % (Auto) Lymph % (Auto) Clinton % (Auto) Eos % (Auto) Baso % (Auto) Immature Gran # (Auto) Neut # (Auto) Lymph # (Auto) Clinton # (Auto) Eos # (Auto) Baso # (Auto) PT INR APTT PTT Ratio Sodium Potassium Chloride Carbon Dioxide Anion Gap BUN Creatinine Est Cr Clr Drug Dosing Est GFR ( Amer) Est GFR (Non-Af Amer) BUN/Creatinine Ratio Glucose POC Glucose Lactate 1.6 Calcium Magnesium Total Bilirubin AST ALT Alkaline Phosphatase Troponin I Total Protein Albumin Globulin Albumin/Globulin Ratio Procalcitonin Urine Color Yellow Urine Appearance Cloudy A Urine pH 5.5 Ur Specific [place] 1.022 Urine Protein 1+ H Urine Glucose (UA) Negative Urine Ketones Negative Urine Blood Trace H Urine Nitrite Negative Urine Bilirubin Negative Urine Urobilinogen Negative Ur Leukocyte Esterase 2+ H Urine WBC (Auto) >30 H Urine RBC (Auto) 0-4 U Hyaline Cast (Auto) 1-5 U Epithel Cells (Auto) >30 H Urine Bacteria (Auto) Negative Nasal Screen MRSA (PCR) Pending Influenza Type A (PCR) Influenza Type B (PCR) SARS-CoV-2 RNA (RT-PCR) 02/05/20 17:29 WBC RBC Hgb Hct MCV MCH MCHC RDW Std Deviation RDW Coeff of Teresa Plt Count MPV Immature Gran % (Auto) Neut % (Auto) Lymph % (Auto) Clinton % (Auto) Eos % (Auto) Baso % (Auto) Immature Gran # (Auto) Neut # (Auto) Lymph # (Auto) Clinton # (Auto) Eos # (Auto) Baso # (Auto) PT INR APTT PTT Ratio Sodium Potassium Chloride Carbon Dioxide Anion Gap BUN Creatinine Est Cr Clr Drug Dosing Est GFR ( Amer) Est GFR (Non-Af Amer) BUN/Creatinine Ratio Glucose POC Glucose 100 H Lactate Calcium Magnesium Total Bilirubin AST ALT Alkaline Phosphatase Troponin I Total Protein Albumin Globulin Albumin/Globulin Ratio Procalcitonin Urine Color Urine Appearance Urine pH Ur Specific [place] Urine Protein Urine Glucose (UA) Urine Ketones Urine Blood Urine Nitrite Urine Bilirubin Urine Urobilinogen Ur Leukocyte Esterase Urine WBC (Auto) Urine RBC (Auto) U Hyaline Cast (Auto) U Epithel Cells (Auto) Urine Bacteria (Auto) Nasal Screen MRSA (PCR) Influenza Type A (PCR) Influenza Type B (PCR) SARS-CoV-2 RNA (RT-PCR) Code Status & VTE Plan Code Status Full Code as per patient VTE Prophylaxis Plan VTE Prophylaxis will be ordered: Yes (1) Sepsis Sepsis acute organ dysfunction status: without acute organ dysfunction Sepsis type: sepsis due to unspecified organism Qualified Code(s): A41.9 - Sepsis, unspecified organism
--- NOTE | 2020-02-05 18:43 | Pharmacy Report ---
Pharmacy Glycemic Short Note 2 - Date of Service February 05, 2020 - Glycemic Short BSG Results (Last 24 hours): 02/05/20 02/05/20 12:30 17:29 Glucose 146 H POC Glucose 100 H OUTPATIENT ANTIDIABETIC REGIMEN: * A1c = 6.3% * metformin 500 mg PO qAM ASSESSMENT: * Elise is a 64 yo T2DM female admitted with sepsis, possible pyelonephritis, r/o COVID-19 * Pt is maintained on oral antidiabetic agents as an outpatient * Will hold oral agents for admission and utilize SQ basal bolus insulin regimen which is the recommended regimen for inpatient glycemic control. * Start with bolus insulin only (patient did not require basal insulin for adequate glycemic control on previous admission) PLAN FOR INPATIENT GLYCEMIC CONTROL: * Hold outpatient oral diabetes medications * Basal insulin * none * Bolus insulin * NovoLog per scale ACHS or Q6hrs while NPO * Goal Range: Low 120 mg/dL - High 150 mg/dL * Correction Factor: 35 mg/dL/unit * Nutritional / Prandial insulin per carb ratio of 1 unit per 11 grams CHO consumed
[2020-02-05] MEDS: PANTOprazole 40 MG TAB PO SCH (20:08)
[2020-02-05] MEDS: FERROUS SULFATE 325 MG TAB PO SCH (20:08)
[2020-02-05] MEDS: METOPROLOL SUCC 50MG EXT REL TAB PO SCH (20:08)
[2020-02-05] MEDS: SACCHAROMYCES BOULARDII 250 MG CAP PO SCH (20:08)
[2020-02-05] MEDS: GABAPENTIN 300 MG CAP PO SCH (20:08)
[2020-02-05] MEDS ORDERED: MAGNESIUM OXIDE 400 MG TAB PO SCH (21:00)
[2020-02-05] MEDS ORDERED: NON-FORMULARY MEDICATION (Riboflavin (Vitamin B2) 400 MG) PO SCH (21:00)
[2020-02-05] MEDS ORDERED: CLOPIDOGREL BISULFATE 75 MG TAB PO SCH (21:00)
[2020-02-05] MEDS ORDERED: ATORVASTATIN 40 MG TAB PO SCH (21:00)
[2020-02-05] MEDS: HEPARIN SOD 5,000 UNIT/0.5 ML VIAL SQ SCH (22:42)
[2020-02-05] MEDS: PIPERACILLIN/TAZOBACTAM 4.5 GM in DEXTROSE 5% 100 ML IV SCH (22:42)
[2020-02-05 23:54] LABS: Appearance Urine Cloudy (Clear); Bilirubin Urine Negative (Negative); Blood Urine Negative (Negative); Color Urine Yellow; Glucose Urine UA Negative (Negative); Ketones Urine Negative (Negative); Leukocyte Esterase Urine 2+ (Negative); Nitrite Urine Negative (Negative); Protein Urine 1+ (Negative); RBC Urine Automated 0-4 /hpf (0-4); Specific Gravity Urine 1.023 (1.000-1.030); Urobilinogen Urine Negative (Negative); WBC Urine Automated >30 /hpf (0-5)
[2020-02-06 00:14] LABS: Bacteria Urine Automated 1+ (Negative)
[2020-02-06] MEDS: ACETAMINOPHEN 325 MG TAB PO PRN ×2 (01:18→23:27)
[2020-02-06] MEDS: SODIUM CHLORIDE 0.9% 1000ML 1,000 ML IV SCH ×3 (03:30→17:10)
[2020-02-06] MEDS: PIPERACILLIN/TAZOBACTAM 4.5 GM in DEXTROSE 5% 100 ML IV SCH (06:21)
[2020-02-06] MEDS: HEPARIN SOD 5,000 UNIT/0.5 ML VIAL SQ SCH ×3 (06:21→23:40)
[2020-02-06 06:43] LABS: Basophils # (auto) 0.02 K/uL (0-0.2); Basophils % (auto) 0.2 %; Eosinophils # (auto) 0.32 K/uL (0-0.5); Eosinophils % (auto) 3.6 %; Hematocrit (blood only) 35.5 % (37-47); Hemoglobin 10.7 g/dL (12.0-16.0); Immature Granulocytes # (auto) 0.03 K/uL (0.00-0.02); Immature Granulocytes % (auto) 0.3 %; Lymphocytes # (auto) 1.37 K/uL (1.2-3.4); Lymphocytes % (auto) 15.3 %; Mean Corpuscular Hemoglobin 29.5 pg (25-34); Mean Corpuscular Hgb Conc 30.1 g/dL (32-36); Mean Corpuscular Volume 97.8 fL (80-100); Mean Platelet Volume 10.7 fL (7.4-10.4); Monocytes # (auto) 0.59 K/uL (0.11-0.59); Monocytes % (auto) 6.6 %; Neutrophils # (auto) 6.63 K/uL (1.4-6.5); Platelet Count 195 K/uL (130-400); RDW Standard Deviation 50.2 fL (36.4-46.3); Red Blood Count 3.63 M/uL (4.2-5.4); White Blood Count 8.96 K/uL (4.8-10.8)
[2020-02-06 07:06] LABS: BUN Creatinine Ratio 10.6 (10-20); Calcium 8.3 mg/dl (8.5-10.1); Creatinine Clr Calc Pharmacy 33.7 ml/min; Est GFR (African American) 34.3; Est GFR (Non-African American) 29.6; Potassium 3.5 mmol/L (3.5-5.1)
[2020-02-06] MEDS: INSULIN ASPART 100 UNITS/ML 3 ML PEN SC SCH ×4 (08:24→21:15)
[2020-02-06] MEDS ORDERED: CHOLECALCIFEROL 1,000 UNITS 25 MCG TAB PO SCH (09:00)
--- NOTE | 2020-02-06 09:02 | Hospitalist Progress Note ---
Date of Service February 06, 2020 Assessment & Plan (1) Sepsis: 64 year old female with history of Nephrolithiasis, hx of recurrent UTI DM 2, CKD 3, GERD, Depression, COPD, Chronic Respiratory Failure presenting with abdominal pain with fever. SEPSIS SECONDARY TO POSSIBLE PYELONEPHRITIS HISTORY OF RECURRENT UTI --admitted with tachycardia , fever possible source of infection Urinary tract , ( + left flank pain possible due to pyelopnephritis ) lactate normal 1.6 Positive UA -- urine culture: pending( last urine culture on 11/2019: E coli pansensitive ) blood cultures: pending nasal MRSA: negative --on Zosyn IV for now-will narrow down abx once culture and sensitivity a vailable ACUTE RENAL FAILURE ON CKD 3 -- baseline crea 1.14, on admission Cr 1.6 possibly from Sepsis --given IV NSS@ 125 ml/hr Cr worsened to 1.75 today I/O's : positive > 2.5 L ( input 2.9 liter /out put > 800 ml only ) /no loose stool asked nursing for accurate measure of urinary out put no evidence of volume overload ordered for bladder scan /CT abdomen/pelvis -negative for urinary obstruction /no hydronephrosis , no obstructing renal stone cont current rate of IV fluids Nephrology consulted -pt follows with Dr Ronda Niño r/o COVID -- CXR: no infiltrates -- O2 sat normal/on 2 L 02 vial nasal canula denies cough, sputum -- COVID test: pending Influenza -ve /Biofire -ve Isolation for now can be d/clayton of SARs COV -2 PCR -negative EPIGASTRIC PAIN, POSSIBLY FROM HIATAL HERNIA? -- chronic /reports of abdominal bloating , nausea early satiety worse with food intake CT abdomen: 1. Chronic and postoperative change. 2. No acute process. 3. No change as compared to the prior study. 4. Unchanged stable bilateral nonobstructing nephrocalcinosis and cortical scarring. - continue usual Protonix PO BID GI eval requested -- will order for clear liquid diet then advance as tolerated ( doubt any need for emergent EGD) DM 2 -- hold Metformin ISS for now COPD CHRONIC RESPIRATORY FAILURE -- not in exacerbation/no wheeze , -- at baseline 2 L nasal cannula-cont GERD -- continue usual Protonix DEPRESSION -- hold usual Doxepin, Duloxetine, Oxcarbazepine for elevated QT mood stable repeat EKG DVT prophylaxis -- Heparin Subcutaneous Disposition -- anticipate d/c home when medically stable Admission and Anticipated Discharge Date Admission Date: February 05, 2020 Subjective pt feels weak and tired complains of nausea , epigastric /left chest discomfort left flank tenderness has dry non productive cough no fever or chills on 2 L 02 via nasal canula , pts baseline denies of any SOB /Orthopnea or OLSON Review of Systems Review of Systems: All systems reviewed & are unremarkable except as noted in HPI & below Constitutional: + fatigue, + weakness and + anorexia Respiratory: + cough; no dyspnea, no pain with cough, no sputum production and no wheezing Cardiovascular: no chest pain, no radiating jaw, neck or arm pain, no dyspnea, no orthopnea, no palpitations, no lightheadedness and no syncope Gastrointestinal: + abdominal pain, + belching, + early satiety, + heartburn, + nausea and + diarrhea/loose stools; no vomiting Genitourinary: + flank pain (left sided ); no dysuria and no urinary urgency Physical Exam Constitutional: WD/WN, vitals as above + ill appearing; no acute distress Eyes: PERRL, conjunctivae normal, anicteric sclerae ENMT: external ear and nose normal, oropharynx normal Neck: trachea midline, no thyromegaly Respiratory: normal respiratory effort, lungs clear to auscultation Cardiovascular: RRR, no murmur, no edema Gastrointestinal (Abdomen): Percussion/Palpation: + abdomen tender (left lower quadrant and epigastric area /left flank pain ) and abdomen soft Musculoskeletal: no cyanosis or clubbing, extremities motor strength 5/5 Skin: no rashes, warm and dry Neurologic: PERRL, EOMI, accommodation nl, no face palsy, no dysarthria Psychiatric: A+Ox3, euthymic affect Results & Data Results & Data ([facility]) Vital Signs (Past 12 Hours) Vital Signs Temp Pulse Pulse Resp BP Pulse Ox 02/06/20 07:46 64 02/06/20 05:20 36.5 C 89 18 108/67 96 02/05/20 23:33 36.4 C L 72 18 103/68 97 02/05/20 22:[address] abdomen /pelvis non contrast : IMPRESSION: 1. Chronic and postoperative change. 2. No acute process. 3. No change as compared to the prior study. 4. Unchanged stable bilateral nonobstructing nephrocalcinosis and cortical scarring. CHEST XRAY ONE VIEW PORTABLE : 02/05/20 IMPRESSION: 1. Chronic interstitial coarsening is noted with suspicious mild pulmonary vascular congestion. 2. Mild bibasilar densities are suggestive of probable atelectasis. 3. Small hiatal hernia. (1) Sepsis Sepsis acute organ dysfunction status: without acute organ dysfunction Sepsis type: sepsis due to unspecified organism Qualified Code(s): A41.9 - Sepsis, unspecified organism
[2020-02-06] MEDS: PANTOprazole 40 MG TAB PO SCH ×2 (09:58→19:42)
[2020-02-06] MEDS: FERROUS SULFATE 325 MG TAB PO SCH ×2 (09:58→19:40)
[2020-02-06] MEDS: SACCHAROMYCES BOULARDII 250 MG CAP PO SCH ×2 (09:58→19:41)
[2020-02-06] MEDS: METOPROLOL SUCC 50MG EXT REL TAB PO SCH ×2 (09:58→19:52)
[2020-02-06] MEDS: GABAPENTIN 300 MG CAP PO SCH ×3 (09:59→23:28)
--- NOTE | 2020-02-06 10:24 | Communication Note ---
Date of Service: February 06, 2020 We were consulted for epigastric/left sided abd pain worse after eating, on this 64 yr old female pt with a hx of COPD, CKD-3, DM, admitted with a fever (most recent noon on 02/04, 38.3), presumed pyelonephritis. Of note, she is a person under investigation for COVID with results pending and expected in 1-[address] abd/pelvis on arrival with post op changes from subtotal colectomy, and cholecystectomy, fixed hiatal hernia present, no acute abnormalities. No leukocytosis, Hb 10, Hct 35. No mention in notes of nausea/vomiting/diarrhea or GI bleeding. EGD and colonoscopy were completed in Oct 2019 for iron deficiency anemia: EGD with mild ring at the GE junction - fractured with a biopsy forceps, moderate hiatal hernia (hill class 4). Normal stomach and duodenum. Colonoscopy with ileocolonic anastomosis at 20 cm, normal mucosa. Path: mild chronic gastritis, normal duodenal bx. H Pylori (-). She is maintained on a BID PPI and Hb is at her baseline. Discussed with Dr. Garrett who has assumed primary hospitalist service for this pt. Informed her of recent EGD/colonoscopy findings. Agreed that our service can defer referral at this time. Recommend continued BID PPI. We will follow this pt peripherally and will see in person in 1-2 days if her pain persists.
--- NOTE | 2020-02-06 12:13 | Nephrology Consultation ---
Date of Consultation February 06, 2020 Assessment & Plan (1) Acute renal failure superimposed on stage 3 chronic kidney disease: Acute kidney injury on CKD 3, favor ATN in the setting of sepsis/f [id number]-[id number] all of which resolved rapidly aftre presentation. Baseline creatinine 1.3-1.5, most recently 1.3. presenting creatinine 1.7, up to 1.8 on February 05. Renal function stable chemistries acceptable. she does have inflamed urine: Review of past urine studies show this is a consistent finding for her, sometimes with positive culture and sometimes not. Not oliguric. No indication for urgent dialysis. cont I/O. not oliguric Present on Admission?: Yes (2) Sepsis: Presented with WBC 18,000, fever, tachycardia, hypotension, along with acute renal failure. All of these have improved only renal failure has not. Follow-up pending cultures and for now continue antibiotic. Her vitals and white count improved dramatically after minimal therapy, hopefully a good prognostic finding. may simply have been slightly prerenal /dry/dehydrated Present on Admission?: Yes (3) Left sided abdominal pain: inconsistent on hx /other documents/ ros >> per dr garrett consistently L flank; cont to observe Present on Admission?: Yes History of Present Illness Reason for Consultation: Acute renal failure Requesting Physician: Dr. Garrett Attending Physician: Carol Garrett MD History of Present Illness 64-year-old female whom I am asked to see for acute renal failure after she was admitted yesterday with sepsis concerning for pyelonephritis. Medical history includes diabetes on outpatient metformin, CKD 3 for which she follows with me in kidney clinic, chronic flank and pain voiding symptoms, nephrolithiasis and renal cysts, class III obesity, ambulatory dysfunction, hypertension, chronic respiratory failure dependent on supplemental 02nc. Remote history of colon cancer status post 2011 total colectomy. Also with history of catecholamine mediated cardiomyopathy 2017. Her baseline creatinine is 1.3-1.5 from September 2018 through December 2019; most recent value in December 1.3. Presenting creatinine yesterday 1.7; up to 1.8 this morning. Did have a white count of 19,000 on presentation; improved to 9000 this morning. She has had about 2.9 L fluids and has voided about 500 mL of urine recorded so far. Her systolic blood pressures have been hanging in the 100s. This is about her baseline. Presenting heart rate in the 110-130s has since settled to normal heart rate. She was febrile on presentation with a temp of 38.3; has defervesced. She is receiving normal saline at 125 mL/h as well as Zosyn. No NSAIDs no IV contrast. Seen in ER earlier this month w/ voiding concerns and treated w/ po abtx for UTI; cx was negative. States her back is still sore on L lower area as it was at clinic visit w/ my parnter november this year. still sob and slight cough w/ po intake, dysphagia to solids x mos not worsening. denies voiding sx. no edema. no chest pain. Allergies Allergy/AdvReac Type Severity Reaction Status Date / Time salicylates Allergy Severe SHORTNESS Verified 02/05/20 12:55 OF BREATH Iodinated Contrast Media Allergy Intermediate EYES Verified 02/05/20 12:55 SWELLING/Hives meperidine Allergy Intermediate ITCH Verified 02/05/20 12:55 morphine Allergy Intermediate ITCH Verified 02/05/20 12:55 amoxicillin [From Augmentin] Allergy Mild Rash Verified 02/05/20 12:55 aspirin Allergy Mild FACIAL Verified 02/05/20 12:55 SWELLING clavulanic acid Allergy Mild Rash Verified 02/05/20 12:55 [From Augmentin] hydromorphone Allergy Mild RASH/ITCHIN Verified 02/05/20 12:55 G fentanyl Allergy itching/felt Verified 02/05/20 12:55 like throat closing tramadol AdvReac Mild itch Verified 02/05/20 12:55 Home Medications Home Medications Medication Instructions Recorded Confirmed Type atorvastatin [Lipitor] 40 mg PO QPM 07/12/18 02/05/20 History clopidogrel [Plavix] 75 mg PO QPM 07/12/18 02/05/20 History gabapentin 300 mg PO TID 07/12/18 02/05/20 History pantoprazole [Protonix] 40 mg PO BID 07/12/18 02/05/20 History riboflavin (vitamin B2) 400 mg PO QPM 07/12/18 02/05/20 History duloxetine 60 mg PO QAM 10/16/18 02/05/20 History cholecalciferol (vitamin D3) 2,000 unit PO QAM 05/16/19 02/05/20 History [Vitamin D3] oxcarbazepine 300 mg PO BID 05/16/19 02/05/20 History albuterol sulfate 2 puff INHALATION Q4H PRN 07/21/19 02/05/20 History metoprolol succinate 50 mg PO BID 07/21/19 02/05/20 History magnesium oxide 400 mg PO HS 10/05/19 02/05/20 History doxepin 100 mg PO HS 11/30/19 02/05/20 History ferrous sulfate 325 mg PO BID 11/30/19 02/05/20 History metformin 500 mg PO QAM 11/30/19 02/05/20 History Saccharomyces boulardii [Florastor] 250 mg PO BID #20 cap 01/14/20 02/05/20 Rx ondansetron 4 mg PO Q6H PRN #14 tab 01/14/20 02/05/20 Rx Patient History Medical History Anxiety Asthma Bladder infection CHF (congestive heart failure) Chronic back pain Chronic headaches Chronic kidney disease FOLLOWS W/ DR. JASON Chronic renal insufficiency COPD (chronic obstructive pulmonary disease) Deep vein thrombosis LLE - COULD NOT RECALL DATE - REPORTS SHE WAS TREATED AT [facility] W/ BLOOD THINNERS Degenerative disc disease Depression Diabetes mellitus, type 2 GERD (gastroesophageal reflux disease) History of colon cancer 2012 S/P BOWEL RESECTION. Hyperlipidemia Hypertension Kidney stones Morbid obesity with BMI of 40.0-44.9, adult Myocardial Infarction 03/2018--> [facility] -- CARDIAC CATH --> NO STENTS/ANGIOPLASTY PER PT REPORT -- POOR HISTORIAN? REPORTS SHE IS ON PLAVIX FOR HEART - DENIES STENTS - DENIES ARRHYTHMIA - FOLLOWS Amparo/ DR. TORRES On anticoagulant therapy plavix daily On home oxygen therapy 2L N/C at all times Osteoarthritis Poor historian Surgical History H/O hand surgery RIGHT History of appendectomy History of bilateral cataract extraction History of blepharoplasty History of bowel resection d/t colon cancer History of cardiac cath 03/2018 - [place] - DENIES STENTS/ANGIOPLASTY - [facility] - FOLLOWS Amparo/ DR. TORRES History of colonoscopy History of cystoscopy History of esophagogastroduodenoscopy (EGD) History of kidney surgery at age 9 yrs "something was wrong and had to fix it" History of lithotripsy History of tooth extraction History of total abdominal hysterectomy and bilateral salpingo-oophorectomy Hx of cholecystectomy Family History Other No pertinent family history in first degree relatives Social History Preferred Language: Kazakh Communication Ability: Effective Director [place] Required: No Beliefs That Will Affect Care: None marital status: Current Living Situation: Alone Current Living Situation Comment: Has home caregivers Other Information That Helps Us Care for You: No Feels Safe at Home: Yes Safety Concerns: Feels Safe At This Time Smoking Status: Never smoker Tobacco Type: cigarettes ; Second Hand Exposure: Yes ( smoked/daughter smoked) ; Hx Alcohol Use: No Hx Substance Use: No Review of Systems Review of Systems: All systems reviewed & are unremarkable except as noted in HPI & below Physical Exam Physical Exam: due to covid 19 investigation pending for this pt, PE deferred and instead d/w Dr Gerry cast dnursing Results & Data Vital Signs (Past 12 Hours) Vital Signs Temp Pulse Pulse Resp BP Pulse Ox 02/06/20 07:46 64 02/06/20 05:20 36.5 C 89 18 108/67 96 Laboratory Results 02/06/20 06:08 02/06/20 06:09 Urinalysis cloudy with specific gravity 1023, 1+ protein, 2+ leukocyte esterase, greater than 30 white cells, 10-20 epithelial cells and granular casts per low powered field, 10-20 epithelial cells per low powered field 1+ bacteria, budding yeast COVID 19 pending; influenza a and B negative Blood and urine cultures pending Diagnostic Findings Chest x-ray 1. Chronic interstitial coarsening is noted with suspicious mild pulmonary vascular congestion. 2. Mild bibasilar densities are suggestive of probable atelectasis. 3. Small hiatal hernia. CT abdomen pelvis Noncon FINDINGS: Fixed hiatal hernia. Slight prominence of the interstitial markings both lung bases. Unchanged upper pole left renal cyst. Unchanged bilateral cortical scarring as well as nonobstructing nephrocalcinosis. Small ventral hernia containing a small nonobstructive loop of small bowel. Stab le muscular atrophy left lateral abdominal wall. No well-defined hernia. Bowel pattern overall is nonobstructive. Prior cholecystectomy. Prior subtotal colectomy. Unchanged calcified granuloma left lung base. IMPRESSION: 1. Chronic and postoperative change. 2. No acute process. 3. No change as compared to the prior study. 4. Unchanged stable bilateral nonobstructing nephrocalcinosis and cortical s carring. GI studies October 2019 EGD and colonoscopy were completed in Oct 2019 for iron deficiency anemia: EGD with mild ring at the GE junction - fractured with a biopsy forceps, moderate hiatal hernia (hill class 4). Normal stomach and duodenum. Colonoscopy with ileocolonic anastomosis at 20 cm, normal mucosa. Path: mild chronic gastritis, normal duodenal bx. H Pylori (-). (1) Acute renal failure superimposed on stage 3 chronic kidney disease Acute renal failure type: with acute tubular necrosis Qualified Code(s): N17.0 - Acute kidney failure with tubular necrosis; N18.3 - Chronic kidney disease, stage 3 (moderate) (2) Sepsis Sepsis acute organ dysfunction status: without acute organ dysfunction Sepsis type: sepsis due to unspecified organism Qualified Code(s): A41.9 - Sepsis, unspecified organism
--- NOTE | 2020-02-06 13:19 | Electrocardiogram Report ---
Test Reason : Blood Pressure : / mmHG Vent. Rate : 088 BPM Atrial Rate : 088 BPM P-R Int : 170 ms QRS Dur : 062 ms QT Int : 344 ms P-R-T Axes : 053 008 056 degrees QTc Int : 416 ms Normal sinus rhythm Low voltage QRS Borderline ECG When compared with ECG of 05-FEB-2020 12:28, VA interval has decreased Vent. rate has decreased BY 71 BPM Minimal criteria for Anterior infarct are no longer Present Criteria for Inferior infarct are no longer Present Confirmed by Kodak Mei ([id number]) on 02/06/2020 1:19:06 PM Referred By: REFERRED SELF Confirmed By:Kodak Mei
[2020-02-06] MEDS: OXYCODONE HCL IR 5 MG TAB (IMMEDIATE RELEASE) PO PRN ×2 (15:43→21:10)
[2020-02-06] MEDS: cefTRIAXone SODIUM 2,000 MG in DEXTROSE 5% 50 ML IV SCH (15:45)
[2020-02-06] MEDS: ATORVASTATIN 40 MG TAB PO SCH (19:41)
[2020-02-06] MEDS: MAGNESIUM OXIDE 400 MG TAB PO SCH (19:42)
[2020-02-06] MEDS: CLOPIDOGREL BISULFATE 75 MG TAB PO SCH (19:43)
[2020-02-07] MEDS: OXYCODONE HCL IR 5 MG TAB (IMMEDIATE RELEASE) PO PRN ×3 (01:59→13:14)
[2020-02-07] MEDS: SODIUM CHLORIDE 0.9% 1000ML 1,000 ML IV SCH ×3 (01:59→17:54)
[2020-02-07 07:34] LABS: BUN Creatinine Ratio 8.3 (10-20); Calcium 8.8 mg/dl (8.5-10.1); Creatinine Clr Calc Pharmacy 39.8 ml/min; Est GFR (Non-African American) 36.2; Potassium 3.8 mmol/L (3.5-5.1)
[2020-02-07] MEDS: CHOLECALCIFEROL 1,000 UNITS 25 MCG TAB PO SCH (08:14)
[2020-02-07] MEDS: GABAPENTIN 300 MG CAP PO SCH ×2 (08:14→17:35)
[2020-02-07] MEDS: METOPROLOL SUCC 50MG EXT REL TAB PO SCH ×2 (08:15→21:24)
[2020-02-07] MEDS: PANTOprazole 40 MG TAB PO SCH ×2 (08:15→21:06)
[2020-02-07] MEDS: SACCHAROMYCES BOULARDII 250 MG CAP PO SCH ×2 (08:15→21:04)
[2020-02-07] MEDS: HEPARIN SOD 5,000 UNIT/0.5 ML VIAL SQ SCH ×2 (08:16→17:35)
[2020-02-07] MEDS: FERROUS SULFATE 325 MG TAB PO SCH ×2 (08:16→21:05)
[2020-02-07] MEDS: INSULIN ASPART 100 UNITS/ML 3 ML PEN SC SCH ×4 (08:18→21:23)
--- NOTE | 2020-02-07 09:47 | Pharmacy Report ---
Pharmacy Glycemic Sign Off Nt - Date of Service February 07, 2020 - Assessment & Plan OUTPATIENT ANTIDIABETIC REGIMEN: * A1c = 6.3% * metformin 500 mg PO qAM ASSESSMENT: * Elise is a 64 yo T2DM female admitted with sepsis, possible pyelonephritis, r/o COVID-19 * Pt is maintained on oral antidiabetic agents as an outpatient * Will hold oral agents for admission and utilize SQ basal bolus insulin regimen which is the recommended regimen for inpatient glycemic control. * Start with bolus insulin only (patient did not require basal insulin for adequate glycemic control on previous admission) 02/06: * Patient received only 2 units of insulin yesterday - BSGs well controlled * Fasting BSG 114 mg/dL - basal insulin not indicated * Add CR at lunch as BSG trending up to 162 mg/dL PLAN FOR INPATIENT GLYCEMIC CONTROL: * Hold outpatient oral diabetes medications * Basal insulin * none * Bolus insulin * NovoLog per scale ACHS or Q6hrs while NPO * Goal Range: Low 120 mg/dL - High 150 mg/dL * Correction Factor: 35 mg/dL/unit * Nutritional / Prandial insulin per carb ratio of 1 unit per 15 grams CHO consumed DISCHARGE RECOMMENDATIONS: * A1c 6.3 % on 12/02/19 * Recommend continuation of home metformin on discharge as long as renal function continues to improve further and patient reports no lows at home. Would initiate metformin back on when eGFR more than 45. Appears baseline eGFR >50
--- NOTE | 2020-02-07 11:41 | Nephrology Progress Note ---
Date of Service February 07, 2020 Assessment & Plan (1) Acute renal failure superimposed on stage 3 chronic kidney disease: Acute kidney injury on CKD 3, prerenal in the setting of sepsis/fever-h ypotension-tachycardia all of which resolved rapidly aftre presentation. Baseline creatinine 1.3-1.5, most recently 1.3. presenting creatinine 1.7, up to 1.8 on February 05; now back to baseline. Renal function improved chemistries acceptable. she does have inflamed urine but cx is negative; repeat is pending: Review of past urine studies show inflamed urine is a consistent finding for her, sometimes with positive culture and sometimes not. Not oliguric. No indication for urgent dialysis. cont I/O. I will evaluate her labs tomorrow but unless they worsen again will sign off. (2) Left sided abdominal pain: inconsistent on hx /other documents/ ros >> per dr garrett consistently L flank; cont to observe; on pain medication (3) Malaise and fatigue: Presented with WBC 18,000, fever, tachycardia, hypotension, along with acute renal failure: presented w/ sepsis which quickly resolved. [place] better 02/05; worse today w/ diffuse aches > head, abd, chest and N/malaise. Dr Garrett aware and will reassess; d/t this lower NS to 75 ml hourly but continue. Follow-up pending cultures and for now continue antibiotic. Her vitals and white count improved dramatically after minimal therapy, hopefully a good prognostic finding. 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 pt c/o feeling quite poorly >> anterior chest pain, ongoing back/flank pain, EWING, N and abd pain. denies voiding concerns; states she is moving bowels unchanged. no sob. Review of Systems Review of Systems: All systems reviewed & are unremarkable except as noted in HPI & below Physical Exam Physical Exam: deferred d/t C 19 pending test/ efforts to preserve PPE Results & Data ([facility]) Vital Signs (Past 12 Hours) Vital Signs Temp Pulse Pulse Resp BP Pulse Ox 02/07/20 09:03 63 02/07/20 08:23 36.7 C 79 20 122/84 95 02/07/20 04:00 36.6 C 70 18 111/69 97 02/06/20 23:59 81 02/06/20 23:58 37.1 C 77 18 114/75 95 Laboratory Results 02/06/20 06:08 02/07/20 06:30 (1) Acute renal failure superimposed on stage 3 chronic kidney disease Acute renal failure type: with acute tubular necrosis Qualified Code(s): N17.0 - Acute kidney failure with tubular necrosis; N18.3 - Chronic kidney disease, stage 3 (moderate)
[2020-02-07] MEDS ORDERED: ONDANSETRON INJ 2 MG/ML 2 ML VIAL IV PRN (12:32)
--- NOTE | 2020-02-07 13:07 | Hospitalist Progress Note ---
Date of Service February 07, 2020 Assessment & Plan (1) Sepsis: Rule out COVID-19 disease Started to experience severe headache, generalized body ache, chills, difficulty breathing/pain with deep breath Oxygen saturation remains 97% in room air, which is patient's baseline GI symptoms with nausea severe abdominal pain started this morning Did not had any bowel movement yet(bouts of diarrhea yesterday) Influenza -ve /Biofire -ve SARs COV -2 PCR -report pending/send out test to [facility] lab was sent on 02/05/2020 at noon time Because of patient's worsening of clinical status/vgwjufoz-gd-iunmx rapid COVID- 19 test ordered Continue standard isolation precaution SEPSIS SECONDARY TO POSSIBLE PYELONEPHRITIS HISTORY OF RECURRENT UTI --admitted with tachycardia , fever -abdominal pain possible source of infection Urinary tract , ( + left flank pain possible due to pyelopnephritis ) /rule out COVID-19 disease-result for PCR still pending lactate normal 1.6 Positive UA -- urine culture: pending( last urine culture on 11/2019: E coli pansensitive ) nasal MRSA: negative --Antibiotic changed to IV Rocephin ACUTE RENAL FAILURE ON CKD 3 -- baseline crea 1.14, on admission Cr 1.6 possibly from Sepsis --given IV NSS@ 125 ml/hr Creatinine improved to 1.45 today, appreciate input from nephrology IV fluid rate reduced to 75 mL/h, continue IV fluids to prevent dehydration: As long patient as having GI symptoms with poor p.o. intake- EPIGASTRIC PAIN, POSSIBLY FROM HIATAL HERNIA? -- chronic /reports of abdominal bloating , nausea Worsening of abdominal pain/flank pain today, with severe nausea, no vomiting, very poor appetite CT abdomen: 1. Chronic and postoperative change. 2. No acute process. 3. No change as compared to the prior study. 4. Unchanged stable bilateral nonobstructing nephrocalcinosis and cortical scarring. - continue usual Protonix PO BID Diet change to clears for ongoing GI symptoms DM 2 -- hold Metformin Insulin sliding scale COPD CHRONIC RESPIRATORY FAILURE -- not in exacerbation/no wheeze , -- at baseline 2 L nasal cannula-cont GERD -- continue usual Protonix DEPRESSION -- hold usual Doxepin, Duloxetine, Oxcarbazepine for elevated QT mood stable repeat EKG shows QTC more than 500, DC Zofran ordered for PRN Phenergan for nausea/vomiting DVT prophylaxis -- Heparin Subcutaneous Disposition --Continue standard isolation precaution for COVID-19 disease until results is available Admission and Anticipated Discharge Date Admission Date: February 05, 2020 Subjective Patient reports of feeling very ill/having severe headache, severe generalized body ache, chills, reports of chest pain, pain with take deep breath, severe left flank pain/abdominal pain /pain in bilateral extremities Tremor noted on both upper and lower extremities,-patient reports of having a chronic tremors, worse since this morning Started to experience nausea this morning, did not have any vomiting So far no loose stool Patient been afebrile temperature 36.8, on 2 L oxygen via nasal cannula (patient's baseline) SPO2 97% Review of Systems Constitutional: + chills, + body aches, + fatigue, + malaise, + weakness and + anorexia; no fever Respiratory: + cough and + pain on inspiration; no dyspnea, no pain with cough, no sputum production and no wheezing Gastrointestinal: + abdominal pain, + belching, + early satiety, + heartburn and + nausea; no vomiting and no diarrhea/loose stools Genitourinary: + flank pain (left sided ); no dysuria and no urinary urgency Musculoskeletal: + back pain, + joint pain, + myalgia and + body aches (Generalized body ache) Neurologic: + generalized weakness, + tremor(s) and + headache(s) Physical Exam Constitutional: WD/WN, vitals as above + acute distress (Due to headache/body ache) and + ill appearing Eyes: PERRL, conjunctivae normal, anicteric sclerae ENMT: external ear and nose normal, oropharynx normal Neck: trachea midline, no thyromegaly Respiratory: normal respiratory effort, lungs clear to auscultation Cardiovascular: RRR, no murmur, no edema Gastrointestinal (Abdomen): Percussion/Palpation: + abdomen tender (left lower quadrant and epigastric area /left flank pain ) and abdomen soft Musculoskeletal: Generalized pain, tremor noted Skin: no rashes, warm and dry Neurologic: PERRL, EOMI, accommodation nl, no face palsy, no dysarthria Psychiatric: Orientation: alert and oriented x 3 Affect: + anxious affect and + tearful affect Results & Data Results & Data ([facility]) Vital Signs (Past 12 Hours) Vital Signs Temp Pulse Pulse Resp BP Pulse Ox 02/07/20 11:59 36.8 C 81 20 111/70 97 02/07/20 09:03 63 02/07/20 08:23 36.7 C 79 20 122/84 95 02/07/20 04:00 36.6 C 70 18 111/69 97 (1) Sepsis Sepsis acute organ dysfunction status: without acute organ dysfunction Sepsis type: sepsis due to unspecified organism Qualified Code(s): A41.9 - Sepsis, unspecified organism
[2020-02-07] MEDS ORDERED: HYDROmorphone INJ 1 MG/ML SYRINGE IV PRN (13:26)
[2020-02-07] MEDS ORDERED: ACETAMINOPHEN 1,000 MG/100 ML VIAL IV ONE (13:30)
[2020-02-07] MEDS: PROMETHAZINE HCL 12.5 MG in SODIUM CHLORIDE 0.9% 50 ML IV PRN (14:39)
[2020-02-07] MEDS: cefTRIAXone SODIUM 2,000 MG in DEXTROSE 5% 50 ML IV SCH (17:35)
[2020-02-07] MEDS ORDERED: NALOXONE HCL 0.4 MG/1 ML VIAL/CARP IV STA (18:12)
--- NOTE | 2020-02-07 18:21 | Hospitalist Progress Note ---
Date of Service February 07, 2020 Assessment & Plan Admission and Anticipated Discharge Date Admission Date: February 05, 2020 Subjective asked to re evaluate patient , as nursing noticed pt is more lathergic , dif ficult to arouse this afternoon vitals been stable pt checked at bedside , noted to be very drowsy ( changed status since my last visit ) woke up to voice , reports her nausea , abdominal pain has improved still has the headache increased tremors noted in both hands since last visit , pt attempts to eat Jello -unable to hold the spoon , spilling food everywhere pt able to answer questions , says feels extremely fatigues , wiped out denies of chest pain or SOB medications reviewed : pt received IV Phenargan for nausea follow by IV dialudid for generalized pain ordered to hold all narcotic pain meds will order a dose of narcane check ABG stat to assess possible CO2 retention Pt's rapid COVID -19 PCR came negative but given pt is very symptomatic without a reliable source of infection will keep standard Isolation for COVID 19 for now ( false negative tests been reported ) if pt continues to be symptomatic -will consider recheck in next 24-48 hrs Carol Garrett MD Results & Data Results & Data ([facility]) Vital Signs (Past 12 Hours) Vital Signs Temp Pulse Pulse Resp BP Pulse Ox 02/07/20 17:47 37.4 C 95 H 18 151/90 H 92 02/07/20 16:00 123 H 02/07/20 15:02 95 H 02/07/20 14:54 37.0 C 115 H 18 94/63 L 96 02/07/20 11:59 36.8 C 81 20 111/70 97 02/07/20 09:03 63 02/07/20 08:23 36.7 C 79 20 122/84 95
[2020-02-07 18:49] LABS: Allen Test POS (Pos); Base Excess ABG -4.3 mEq/L (-9-1.8); HCO3 ABG 23 mmol/L (19-24); PCO2 ABG 49 mmHg (35-46); PO2 ABG 99 mmHg (80-95); pH ABG 7.28 (7.35-7.45)
[2020-02-07] MEDS: MAGNESIUM OXIDE 400 MG TAB PO SCH (21:05)
[2020-02-07] MEDS: ATORVASTATIN 40 MG TAB PO SCH (21:05)
[2020-02-07] MEDS: CLOPIDOGREL BISULFATE 75 MG TAB PO SCH (21:06)
[2020-02-07] MEDS ORDERED: ACETAMINOPHEN 1,000 MG/100 ML VIAL IV PRN (22:00)
[2020-02-08] MEDS ORDERED: TRAMADOL HCL 50 MG TABLET PO STA (01:13)
[2020-02-08] MEDS: GABAPENTIN 300 MG CAP PO SCH ×3 (02:01→16:32)
[2020-02-08] MEDS: HEPARIN SOD 5,000 UNIT/0.5 ML VIAL SQ SCH ×3 (02:02→17:01)
[2020-02-08] MEDS: PROMETHAZINE HCL 12.5 MG in SODIUM CHLORIDE 0.9% 50 ML IV PRN (02:30)
--- NOTE | 2020-02-08 07:43 | XRay Report ---
LEFT ANKLE 3 VIEWS HISTORY: fall. ankle injury COMPARISON: None. FINDINGS: No acute fracture or dislocation of the left ankle. Plantar heel spur. Deformity at the lef t proximal third metatarsal. Soft tissues are unremarkable. No radiopaque foreign bodies. IMPRESSION: 1. No fracture or dislocation within the left ankle. 2. Deformity at the proximal left third metatarsal. This is consistent with an age-indeterminate frac ture. If the patient is complaining of pain at this location then consider follow-up dedicated left f oot radiograph. ACT 112: Negative or not required by law. Electronically signed by: Marcell Marquez M.D. 02/08/2020 7:42 AM
--- NOTE | 2020-02-08 07:51 | CT Scan Report ---
HEAD CT NONCONTRAST CT DOSE: 638.56 mGycm HISTORY: fall. hit head TECHNIQUE: Multiaxial CT images of the head were performed without the use of intravenous contrast. A utomated exposure control was utilized for this study. A dose lowering technique was utilized adheri ng to the principles of ALARA. Comparison: Head CT 07/21/2019. Findings: The paranasal sinuses and mastoid air cells are clear. The calvarium and skull base are int act. The ventricles and sulci are within normal limits. There is no mass, hematoma, midline shift, or acute infarct. Impression: No acute intracranial abnormality. ACT 112: Negative or not required by law. Electronically signed by: Marcell Marquez M.D. 02/08/2020 7:49 AM
--- NOTE | 2020-02-08 08:15 | Hospitalist Progress Note ---
Date of Service February 08, 2020 Assessment & Plan (1) Sepsis: Rule out COVID-19 disease clinically continues to improve no chills or fever , GI symptoms , body aches has resolved , no SOB , no cough or hypoxia pluritis chest pain has resolved waiting for COVId 19 PCR report [facility] on 02/05/20 at noon if [facility] is negative pt continues to improve clinically standard isolation can be discontinued FALL /LEFT ANKLE SPRAIN : pt mentioned she slipped and fell in bathroom last night did not had any dizzy spell or lightheadedness prior to that Xray of foot shows no fracture CT head ; no acute change cont fall precaution SEPSIS SECONDARY TO POSSIBLE PYELONEPHRITIS HISTORY OF RECURRENT UTI --admitted with tachycardia , fever -abdominal pain possible source of infection Urinary tract , ( + left flank pain possible due to pyelopnephritis ) /rule out COVID-19 disease-result for PCR still pending lactate normal 1.6 Positive UA -- urine culture: pending( last urine culture on 11/2019: E coli pansensitive ) nasal MRSA: negative --Antibiotic changed to IV Rocephin ACUTE RENAL FAILURE ON CKD 3 -- baseline crea 1.14, on admission Cr 1.6 possibly from Sepsis --given IV fluids cr improved to baseline appreciate input from nephrology EPIGASTRIC PAIN, POSSIBLY FROM HIATAL HERNIA? GI symptoms has resolved diet advanced to solid -- chronic /presented with abdominal bloating , nausea CT abdomen: 1. Chronic and postoperative change. 2. No acute process. 3. No change as compared to the prior study. 4. Unchanged stable bilateral nonobstructing nephrocalcinosis and cortical scarring. - continue usual Protonix PO BID DM 2 -- hold Metformin Insulin sliding scale COPD CHRONIC RESPIRATORY FAILURE -- not in exacerbation/no wheeze , -- at baseline 2 L nasal cannula-cont GERD -- continue usual Protonix DEPRESSION -- hold usual Doxepin, Duloxetine, Oxcarbazepine for elevated QT mood stable repeat EKG shows QTC more than 500, DC Zofran ordered for PRN Phenergan for nausea/vomiting DVT prophylaxis -- Heparin Subcutaneous Disposition --Continue standard isolation precaution for COVID-19 disease until results is available Admission and Anticipated Discharge Date Admission Date: February 05, 2020 Subjective more awake and alert today abdominal pain /nausea has resolved , no loose bowel movement overnight ot this AM pt sustained fall while going to bathroom yesterday fell on her left side complains of pain on left foot ( Xray of foot shows no evidence of fx ) mental status to baseline , conversing appropriately no chills or tremor noted Review of Systems Review of Systems: All systems reviewed & are unremarkable except as noted in HPI & below Respiratory: no cough, no dyspnea and no wheezing Cardiovascular: no chest pain, no lightheadedness, no syncope and no edema Gastrointestinal: no abdominal pain, no heartburn, no nausea, no vomiting and no diarrhea/loose stools Physical Exam Constitutional: WD/WN, vitals as above + ill appearing and + obese; no acute distress Eyes: PERRL, conjunctivae normal, anicteric sclerae ENMT: external ear and nose normal, oropharynx normal Neck: trachea midline, no thyromegaly Respiratory: normal respiratory effort, lungs clear to auscultation Cardiovascular: RRR, no murmur, no edema Gastrointestinal (Abdomen): Percussion/Palpation: abdomen soft; abdomen nontender Musculoskeletal: no cyanosis or clubbing, extremities motor strength 5/5 left foot : no swelling , no bruise noted /no obvious deformity noted pt complains of tenderness on movement of foot and ankle joint able to bear wt Skin: no rashes, warm and dry Neurologic: PERRL, EOMI, accommodation nl, no face palsy, no dysarthria Psychiatric: A+Ox3, euthymic affect Orientation: alert and oriented x 3 Affect: + anxious affect and + tearful affect Results & Data Results & Data ([facility]) Vital Signs (Past 12 Hours) Vital Signs Temp Pulse Pulse Resp BP Pulse Ox Pulse Ox 02/08/20 07:28 89 02/08/20 05:00 36.9 C 83 18 116/73 99 02/08/20 01:34 36.9 C 82 108 H 20 126/81 2 L 94 02/07/20 21:30 36.9 C 95 H 18 113/80 92 (1) Sepsis Sepsis acute organ dysfunction status: without acute organ dysfunction Sepsis type: sepsis due to unspecified organism Qualified Code(s): A41.9 - Sepsis, unspecified organism
[2020-02-08 08:33] LABS: BUN Creatinine Ratio 7.9 (10-20); Calcium 9.1 mg/dl (8.5-10.1); Creatinine Clr Calc Pharmacy 49.4 ml/min; Est GFR (African American) 54.5; Est GFR (Non-African American) 47.1; Potassium 3.5 mmol/L (3.5-5.1)
[2020-02-08] MEDS: METOPROLOL SUCC 50MG EXT REL TAB PO SCH ×2 (08:44→19:43)
[2020-02-08] MEDS: SACCHAROMYCES BOULARDII 250 MG CAP PO SCH ×2 (08:44→19:53)
[2020-02-08] MEDS: FERROUS SULFATE 325 MG TAB PO SCH ×2 (08:45→19:52)
[2020-02-08] MEDS: CHOLECALCIFEROL 1,000 UNITS 25 MCG TAB PO SCH (08:45)
[2020-02-08] MEDS: PANTOprazole 40 MG TAB PO SCH ×2 (08:46→19:54)
[2020-02-08] MEDS: INSULIN ASPART 100 UNITS/ML 3 ML PEN SC SCH ×4 (08:47→20:32)
--- NOTE | 2020-02-08 09:22 | Nephrology Progress Note ---
Date of Service February 08, 2020 Assessment & Plan (1) Acute renal failure superimposed on stage 3 chronic kidney disease: Acute kidney injury on CKD 3, prerenal in the setting of sepsis/fever-hypo tension-tachycardia all of which resolved rapidly aftre presentation. Baseline creatinine 1.3-1.5, most recently 1.3. presenting creatinine 1.7, up to 1.8 on February 05; now back to and even better than baseline. Renal function improved chemistries acceptable. she does have inflamed urine but cx is negative; repeat is pending: Review of past urine studies show inflamed urine is a consistent finding for her, sometimes with positive culture and sometimes not. Not oliguric. No indication for urgent dialysis. cont I/O. Her renal function is better than baseline. We will sign off. Care coordinated w/ Dr Garrett DISCHARGE RECOMMENDATIONS (d/c summary updated) -nephrology will order bmp to be drawn at hospital follow up visit with Dr Chand and primary care team -needs CKD clinic visit to be scheduled for March with me >> if patient has not received word of this appointment by February 21, she should call [phone] and ask for update on this (2) Left sided abdominal pain: inconsistent on hx /other documents/ ros >> per dr garrett consistently L flank; cont to observe; on pain medication (3) Malaise and fatigue: Presented with WBC 18,000, fever, tachycardia, hypotension, along with acute renal failure: presented w/ sepsis which quickly resolved. [place] better 02/05; clinically improving compared to yesterday when she had diffuse aches > head, abd, chest and N/malaise. Still relatively hypotensive and after her fall, will suggest checking orthostatics Follow-up pending cultures and for now continue antibiotic. Her vitals and white count improved dramatically after minimal therapy, hopefully a good prognostic finding. Admission and Anticipated Discharge Date Admission Date: February 05, 2020 Subjective fell last night getting up to bathroom > slipped on urine, twisted L foot; states L sided abd/flank pain worse than at admission; N and light headedness from yesterday have resolved. She feels a bit better but still is lightheaded at times when getting up. No dysuria or gross hematuria; C19 test still pending Review of Systems Review of Systems: All systems reviewed & are unremarkable except as noted in HPI & below Physical Exam Physical Exam: deferred d/t C 19 pending test/ efforts to preserve PPE Results & Data ([facility]) Vital Signs (Past 12 Hours) Vital Signs Temp Pulse Pulse Resp BP Pulse Ox Pulse Ox 02/08/20 08:52 37.1 C 82 20 102/63 02/08/20 07:28 89 02/08/20 05:00 36.9 C 83 18 116/73 99 02/08/20 01:34 36.9 C 82 108 H 20 126/81 2 L 94 02/07/20 21:30 36.9 C 95 H 18 113/80 92 Laboratory Results 02/06/20 06:08 02/08/20 07:51 ABG from [id number] 06: 7.2 //23 on 2 L oxygen (1) Acute renal failure superimposed on stage 3 chronic kidney disease Acute renal failure type: with acute tubular necrosis Qualified Code(s): N17.0 - Acute kidney failure with tubular necrosis; N18.3 - Chronic kidney disease, stage 3 (moderate)
--- NOTE | 2020-02-08 10:12 | Gastroenterology Progress Note ---
Date of Service February 08, 2020 Assessment & Plan Admission and Anticipated Discharge Date Admission Date: February 05, 2020 Results & Data ([facility]) Vital Signs (Past 12 Hours) Vital Signs Temp Pulse Pulse Resp BP Pulse Ox Pulse Ox 02/08/20 08:52 37.1 C 82 20 102/63 02/08/20 07:28 89 02/08/20 05:00 36.9 C 83 18 116/73 99 02/08/20 01:34 36.9 C 82 108 H 20 126/81 2 L 94
[2020-02-08] MEDS: TRAMADOL HCL 50 MG TABLET PO PRN ×2 (13:34→19:37)
--- NOTE | 2020-02-08 14:15 | Gastrointestinal Consultation ---
Date of Consultation February 08, 2020 History of Present Illness Attending Physician: Carol Garrett MD Source: chart review 64 yo female with h/o morbid obesity, renal insuff, DM with a1c's generally 5-6, h/o CRC s/p resection in 2010 admitted for fever which appears to have resolved with abx, although no clear source identified. We are consulted for several month h/o LUQ pain and bloating. She had complained of LUQ pain during outpt clnic visit in late 2018, also during hospitalization for pyeloin Nov 2019, and had a telephonic visit on 01/10 for same complaints and was continued on Zofran Her w/u to date has included mult CT's withut IV contrast, which do not show any GI pathology except hor HH. SHe udnerwent EGD and cscopy to w/u fe def anemia (ferritin 22, Hgb 10; improved with oral iron) which were significant for mod hiatal hernia; a mod hiatal hernia is also noted on abd CT's. No NSAID's, on metformin since mid 2018. Her weight has remained stable at approximately 235 lbs over the past year, as documented in EPIC. Labs show nl transaminases, blood sugar unremarakable. A/P: LUQ bloating without alarm symptoms s/p EGD/imaging/labs. - Suspect gastroparesis. DDX may include bolus trapping hiatal hernia. - WOuld give pt empiric trial of Reglan 5 mg PO BID x 1 month. Outpt GES. Trial off metformin. Please call with questions. Allergies Allergy/AdvReac Type Severity Reaction Status Date / Time salicylates Allergy Severe SHORTNESS Verified 02/05/20 12:55 OF BREATH Iodinated Contrast Media Allergy Intermediate EYES Verified 02/05/20 12:55 SWELLING/Hives meperidine Allergy Intermediate ITCH Verified 02/05/20 12:55 morphine Allergy Intermediate ITCH Verified 02/05/20 12:55 amoxicillin [From Augmentin] Allergy Mild Rash Verified 02/05/20 12:55 aspirin Allergy Mild FACIAL Verified 02/05/20 12:55 SWELLING clavulanic acid Allergy Mild Rash Verified 02/05/20 12:55 [From Augmentin] hydromorphone Allergy Mild RASH/ITCHIN Verified 02/05/20 12:55 G fentanyl Allergy itching/felt Verified 02/05/20 12:55 like throat closing tramadol AdvReac Mild itch Verified 02/05/20 12:55 Home Medications Home Medications Medication Instructions Recorded Confirmed Type atorvastatin [Lipitor] 40 mg PO QPM 07/12/18 02/05/20 History clopidogrel [Plavix] 75 mg PO QPM 07/12/18 02/05/20 History gabapentin 300 mg PO TID 07/12/18 02/05/20 History pantoprazole [Protonix] 40 mg PO BID 07/12/18 02/05/20 History riboflavin (vitamin B2) 400 mg PO QPM 07/12/18 02/05/20 History duloxetine 60 mg PO QAM 10/16/18 02/05/20 History cholecalciferol (vitamin D3) 2,000 unit PO QAM 05/16/19 02/05/20 History [Vitamin D3] oxcarbazepine 300 mg PO BID 05/16/19 02/05/20 History albuterol sulfate 2 puff INHALATION Q4H PRN 07/21/19 02/05/20 History metoprolol succinate 50 mg PO BID 07/21/19 02/05/20 History magnesium oxide 400 mg PO HS 10/05/19 02/05/20 History doxepin 100 mg PO HS 11/30/19 02/05/20 History ferrous sulfate 325 mg PO BID 11/30/19 02/05/20 History metformin 500 mg PO QAM 11/30/19 02/05/20 History Saccharomyces boulardii [Florastor] 250 mg PO BID #20 cap 01/14/20 02/05/20 Rx ondansetron 4 mg PO Q6H PRN #14 tab 01/14/20 02/05/20 Rx Patient History Medical History Anxiety Asthma Bladder infection CHF (congestive heart failure) Chronic back pain Chronic headaches Chronic kidney disease FOLLOWS W/ DR. JASON Chronic renal insufficiency COPD (chronic obstructive pulmonary disease) Deep vein thrombosis LLE - COULD NOT RECALL DATE - REPORTS SHE WAS TREATED AT [facility] W/ BLOOD THINNERS Degenerative disc disease Depression Diabetes mellitus, type 2 GERD (gastroesophageal reflux disease) History of colon cancer 2012 S/P BOWEL RESECTION. Hyperlipidemia Hypertension Kidney stones Morbid obesity with BMI of 40.0-44.9, adult Myocardial Infarction 03/2018--> [facility] -- CARDIAC CATH --> NO STENTS/ANGIOPLASTY PER PT REPORT -- POOR HISTORIAN? REPORTS SHE IS ON PLAVIX FOR HEART - DENIES STENTS - DENIES ARRHYTHMIA - FOLLOWS W/ DR. TORRES On anticoagulant therapy plavix daily On home oxygen therapy 2L N/C at all times Osteoarthritis Poor historian Surgical History H/O hand surgery RIGHT History of appendectomy History of bilateral cataract extraction History of blepharoplasty History of bowel resection d/t colon cancer History of cardiac cath 03/2018 - [place] - DENIES STENTS/ANGIOPLASTY - [facility] - FOLLOWS W/ DR. TORRES History of colonoscopy History of cystoscopy History of esophagogastroduodenoscopy (EGD) History of kidney surgery at age 9 yrs "something was wrong and had to fix it" History of lithotripsy History of tooth extraction History of total abdominal hysterectomy and bilateral salpingo-oophorectomy Hx of cholecystectomy Family History Other No pertinent family history in first degree relatives Social History Preferred Language: Slovenian Communication Ability: Effective Roll Press Operator Required: No Beliefs That Will Affect Care: None marital status: Current Living Situation: Alone Current Living Situation Comment: Has home caregivers Other Information That Helps Us Care for You: No Feels Safe at Home: Yes Safety Concerns: Feels Safe At This Time Smoking Status: Never smoker Tobacco Type: cigarettes ; Second Hand Exposure: Yes ( smoked/daughter smoked) ; Hx Alcohol Use: No Hx Substance Use: No Results & Data ([facility]) Vital Signs (Past 12 Hours) Vital Signs Temp Pulse Pulse Resp BP Pulse Ox 02/08/20 08:52 37.1 C 82 20 102/63 02/08/20 07:28 89 02/08/20 05:00 36.9 C 83 18 116/73 99
[2020-02-08 14:42] LABS: D Dimer 1870 ug/L FEU (0-500)
--- NOTE | 2020-02-08 15:22 | Hospitalist Progress Note ---
Date of Service February 08, 2020 Assessment & Plan Admission and Anticipated Discharge Date Admission Date: February 05, 2020 Subjective ATTENDING NOTE : d dimer elevated 1870 -possible elevation due to infection /inflammation Doubt for thrombosis DVT/PE -cont on Sub q heparin for DVT prophylaxis with elevated CRP , normal pro calcitonin clinically continues to improve [facility] SARS-CoV-2 PCR pending cont isolation till then Carol Garrett MD Results & Data Results & Data ([facility]) Vital Signs (Past 12 Hours) Vital Signs Temp Pulse Pulse Resp BP Pulse Ox 02/08/20 08:52 37.1 C 82 20 102/63 02/08/20 07:28 89 02/08/20 05:00 36.9 C 83 18 116/73 99
--- NOTE | 2020-02-08 15:53 | Gastrointestinal Consultation ---
Date of Consultation February 08, 2020 History of Present Illness Reason for Consultation: Abdominal pain Requesting Physician: Dr. Garrett Attending Physician: Carol Garrett MD History of Present Illness Ms. Elise Nesbitt is a 64 yr old female pt of Dr. Chadn with a hx of DM-2, Non contrast CT on arrival w/o any acute abd/pelvis abnormalities. Allergies Allergy/AdvReac Type Severity Reaction Status Date / Time salicylates Allergy Severe SHORTNESS Verified 02/05/20 12:55 OF BREATH Iodinated Contrast Media Allergy Intermediate EYES Verified 02/05/20 12:55 SWELLING/Hives meperidine Allergy Intermediate ITCH Verified 02/05/20 12:55 morphine Allergy Intermediate ITCH Verified 02/05/20 12:55 amoxicillin [From Augmentin] Allergy Mild Rash Verified 02/05/20 12:55 aspirin Allergy Mild FACIAL Verified 02/05/20 12:55 SWELLING clavulanic acid Allergy Mild Rash Verified 02/05/20 12:55 [From Augmentin] hydromorphone Allergy Mild RASH/ITCHIN Verified 02/05/20 12:55 G fentanyl Allergy itching/felt Verified 02/05/20 12:55 like throat closing tramadol AdvReac Mild itch Verified 02/05/20 12:55 Home Medications Home Medications Medication Instructions Recorded Confirmed Type atorvastatin [Lipitor] 40 mg PO QPM 07/12/18 02/05/20 History clopidogrel [Plavix] 75 mg PO QPM 07/12/18 02/05/20 History gabapentin 300 mg PO TID 07/12/18 02/05/20 History pantoprazole [Protonix] 40 mg PO BID 07/12/18 02/05/20 History riboflavin (vitamin B2) 400 mg PO QPM 07/12/18 02/05/20 History duloxetine 60 mg PO QAM 10/16/18 02/05/20 History cholecalciferol (vitamin D3) 2,000 unit PO QAM 05/16/19 02/05/20 History [Vitamin D3] oxcarbazepine 300 mg PO BID 05/16/19 02/05/20 History albuterol sulfate 2 puff INHALATION Q4H PRN 07/21/19 02/05/20 History metoprolol succinate 50 mg PO BID 07/21/19 02/05/20 History magnesium oxide 400 mg PO HS 10/05/19 02/05/20 History doxepin 100 mg PO HS 11/30/19 02/05/20 History ferrous sulfate 325 mg PO BID 11/30/19 02/05/20 History metformin 500 mg PO QAM 11/30/19 02/05/20 History Saccharomyces boulardii [Florastor] 250 mg PO BID #20 cap 01/14/20 02/05/20 Rx ondansetron 4 mg PO Q6H PRN #14 tab 01/14/20 02/05/20 Rx Patient History Medical History Anxiety Asthma Bladder infection CHF (congestive heart failure) Chronic back pain Chronic headaches Chronic kidney disease FOLLOWS W/ DR. JASON Chronic renal insufficiency COPD (chronic obstructive pulmonary disease) Deep vein thrombosis LLE - COULD NOT RECALL DATE - REPORTS SHE WAS TREATED AT [facility] W/ BLOOD THINNERS Degenerative disc disease Depression Diabetes mellitus, type 2 GERD (gastroesophageal reflux disease) History of colon cancer 2012 S/P BOWEL RESECTION. Hyperlipidemia Hypertension Kidney stones Morbid obesity with BMI of 40.0-44.9, adult Myocardial Infarction 03/2018--> [facility] -- CARDIAC CATH --> NO STENTS/ANGIOPLASTY PER PT REPORT -- POOR HISTORIAN? REPORTS SHE IS ON PLAVIX FOR HEART - DENIES STENTS - DENIES ARRHYTHMIA - FOLLOWS W/ DR. TORRES On anticoagulant therapy plavix daily On home oxygen therapy 2L N/C at all times Osteoarthritis Poor historian Surgical History H/O hand surgery RIGHT History of appendectomy History of bilateral cataract extraction History of blepharoplasty History of bowel resection d/t colon cancer History of cardiac cath 03/2018 - [place] - DENIES STENTS/ANGIOPLASTY - [facility] - FOLLOWS W/ DR. TORRES History of colonoscopy History of cystoscopy History of esophagogastroduodenoscopy (EGD) History of kidney surgery at age 9 yrs "something was wrong and had to fix it" History of lithotripsy History of tooth extraction History of total abdominal hysterectomy and bilateral salpingo-oophorectomy Hx of cholecystectomy Family History Other No pertinent family history in first degree relatives Social History Preferred Language: Vietnamese Communication Ability: Effective Brand Advisor Required: No Beliefs That Will Affect Care: None marital status: Current Living Situation: Alone Current Living Situation Comment: Has home caregivers Other Information That Helps Us Care for You: No Feels Safe at Home: Yes Safety Concerns: Feels Safe At This Time Smoking Status: Never smoker Tobacco Type: cigarettes ; Second Hand Exposure: Yes ( smoked/daughter smoked) ; Hx Alcohol Use: No Hx Substance Use: No Results & Data ([facility]) Vital Signs (Past 12 Hours) Vital Signs Temp Pulse Pulse Resp BP Pulse Ox 02/08/20 08:52 37.1 C 82 20 102/63 02/08/20 07:28 89 02/08/20 05:00 36.9 C 83 18 116/73 99
[2020-02-08] MEDS: cefTRIAXone SODIUM 2,000 MG in DEXTROSE 5% 50 ML IV SCH (16:32)
[2020-02-08] MEDS: MAGNESIUM OXIDE 400 MG TAB PO SCH (19:53)
[2020-02-08] MEDS: ATORVASTATIN 40 MG TAB PO SCH (19:53)
[2020-02-08] MEDS: CLOPIDOGREL BISULFATE 75 MG TAB PO SCH (19:54)
[2020-02-09] MEDS: GABAPENTIN 300 MG CAP PO SCH ×3 (01:38→16:30)
[2020-02-09] MEDS: HEPARIN SOD 5,000 UNIT/0.5 ML VIAL SQ SCH ×3 (01:55→16:32)
[2020-02-09 05:15] LABS: SARS CoV2 RNA (COVID-19) NOT DETECTED (NOT DETECTED)
[2020-02-09] MEDS: TRAMADOL HCL 50 MG TABLET PO PRN ×3 (07:09→20:40)
[2020-02-09] MEDS: METOPROLOL SUCC 50MG EXT REL TAB PO SCH ×2 (08:03→20:43)
[2020-02-09] MEDS: PANTOprazole 40 MG TAB PO SCH ×2 (08:03→20:42)
[2020-02-09] MEDS: CHOLECALCIFEROL 1,000 UNITS 25 MCG TAB PO SCH (08:04)
[2020-02-09] MEDS: FERROUS SULFATE 325 MG TAB PO SCH ×2 (08:04→20:41)
[2020-02-09] MEDS: SACCHAROMYCES BOULARDII 250 MG CAP PO SCH ×2 (08:04→20:42)
[2020-02-09] MEDS: INSULIN ASPART 100 UNITS/ML 3 ML PEN SC SCH ×4 (08:05→20:44)
--- NOTE | 2020-02-09 08:14 | Hospitalist Progress Note ---
Date of Service February 09, 2020 Assessment & Plan Admission and Anticipated Discharge Date Admission Date: February 05, 2020 Subjective ATTENDING NOTE : SARS-CoV-2 RNA PCR -negative pt is ruled out of COVID-19 disease 2 tests results negative samples obtained in different dates : [facility] rapid COVID -19 test on 02/06/19 ;negative PCR of SS[facility] Cov-2 RNA sample obtained in ER on 02/05/20 sent to [facility] in [place] : negative /virus RNA was not detected in the specimen ) patient continues to improve clinically : resolution of GI and respiratory symptoms Isolation precaution discontinued pt can be moved out of negative pressure room . vitals been stable D/c telemonitoring Carol Garrett MD Results & Data Results & Data ([facility]) Vital Signs (Past 12 Hours) Vital Signs Temp Pulse Pulse Resp BP Pulse Ox 02/09/20 07:16 90 02/09/20 02:02 36.9 C 97 H 18 119/75 96 02/09/20 01:23 90
[2020-02-09 08:44] LABS: Hematocrit (blood only) 31.4 % (37-47); Hemoglobin 9.4 g/dL (12.0-16.0); Mean Corpuscular Hemoglobin 28.9 pg (25-34); Mean Corpuscular Hgb Conc 29.9 g/dL (32-36); Mean Corpuscular Volume 96.6 fL (80-100); Mean Platelet Volume 10.2 fL (7.4-10.4); Platelet Count 185 K/uL (130-400); RDW Coefficient of Variation 13.9 % (11.5-14.5); RDW Standard Deviation 48.9 fL (36.4-46.3); Red Blood Count 3.25 M/uL (4.2-5.4); White Blood Count 6.12 K/uL (4.8-10.8)
[2020-02-09 09:16] LABS: Creatinine Clr Calc Pharmacy 57.1 ml/min; Est GFR (African American) 64.8; Est GFR (Non-African American) 55.9; Potassium 3.2 mmol/L (3.5-5.1)
[2020-02-09 09:17] LABS: Calcium 8.8 mg/dl (8.5-10.1); Creatinine Clr Calc Pharmacy 56.5 ml/min; Est GFR (African American) 64.1; Est GFR (Non-African American) 55.3
[2020-02-09] MEDS ORDERED: POTASSIUM CHLORIDE 20 MEQ TABCR PO STA (11:26)
--- NOTE | 2020-02-09 11:31 | Ultrasound Report ---
US venous doppler LE BI CLINICAL HISTORY: leg pain /elevated D dimer COMPARISON STUDY: May 16, 2019 FINDINGS: Real-time and color flow Doppler imaging were performed. Flow was seen within the femoral, popliteal and calf veins with no intraluminal thrombus demonstrated. The saphenous vein is patent. IMPRESSION: No evidence of lower extremity DVT. ACT 112: Negative or not required by law. Electronically signed by: Hank Coronado M.D. 02/09/2020 11:30 AM
--- NOTE | 2020-02-09 11:33 | Hospitalist Progress Note ---
Date of Service February 09, 2020 Assessment & Plan (1) Sepsis: FALL /LEFT ANKLE SPRAIN : pt slipped on her urine and sustained a fall at night 02/07/20 did not had any dizzy spell or lightheadedness prior to that Xray of foot shows no fracture CT head ; no acute change complains of more swelling and pain on left foot area of eccymosis noted repeat Xray and lower ext doppler ordered pain control with cold compression , off loading SEPSIS SECONDARY TO POSSIBLE PYELONEPHRITIS HISTORY OF RECURRENT UTI --admitted with tachycardia , fever -abdominal pain possible source of infection Urinary tract , ( + left flank pain possible due to pyelopnephritis ) lactate normal 1.6 Positive UA -- urine culture : yeast /non ruben nasal MRSA: negative --Antibiotic changed to IV Rocephin on Day # 6 needs total 7 days of tx added Lactinex for loose stool COVID 19 NEGATIVE SARS-CoV-2 RNA PCR -negative pt is ruled out of COVID-19 disease 2 tests results negative samples obtained in different dates : [facility] rapid COVID -19 test on 02/06/19 ;negative PCR of SSARS Cov-2 RNA sample obtained in ER on 02/05/20 sent to [facility] in [place] : negative /virus RNA was not detected in the specimen ) patient continues to improve clinically : resolution of GI and respiratory symptoms Isolation precaution discontinued pt can be moved out of negative pressure room . vitals been stable D/c telemonitoring ACUTE RENAL FAILURE ON CKD 3 -resolved , cr improved to baseline appreciate input from nephrology HYPOKALEMIA : Replaced pt reports of chronic diarrhea /loose stool ordered Stool for C diff ( abx tx for # 6 days ) if negative will order PRN imodium EPIGASTRIC PAIN, POSSIBLY FROM HIATAL HERNIA? -- chronic /presented with abdominal bloating , nausea pt had extensive work ups , multiple CT abdomen , recent EGD for GI symptoms -all were negative for pathology except for Hiatal Hernia GI symptoms has resolved diet advanced to solid -tolerating well appreciate input from GI , Per GI : Suspect gastroparesis. DDX may include bolus trapping hiatal hernia. - Would give pt empiric trial of Reglan 5 mg PO BID x 1 month. Outpt gastric emptying study Trial off metformin. will check EKG For prolong Qtc prior to order reglan DM 2 -check Hb a1c , will D/w certified social workers in health care /glycemic pharmacy -for option of different oral hypoglycemic ( metformin will be D/clayton for possible GI side effects: nausea /bloating /loose stool ) Insulin sliding scale COPD CHRONIC RESPIRATORY FAILURE -- not in exacerbation/no wheeze , -- at baseline 2 L nasal cannula-cont GERD -- continue usual Protonix DEPRESSION -- hold usual Doxepin, Duloxetine, Oxcarbazepine for elevated QT mood stable follow daily EKG to assess Qtc DVT PROPHYLAXIS : -- Heparin Subcutaneous Disposition -ISOLATION PRECAUTION D/CLAYTON expected to be discharged home when medically stable Admission and Anticipated Discharge Date Admission Date: February 05, 2020 Subjective complains of being tired and weak no fever or chills no respiratory symptoms -no cough or SOB , on chronic 02 chronic pain on left lower quadrant , stable no nausea , no bowel movement today complains of worsening of pain and swelling on left foot ( pt sustained a fall in bathroom after slipping on her urine yesterday ) unable to bear wt on left foot Review of Systems Constitutional: + fatigue, + malaise and + weakness; no fever, no chills, no body aches and no anorexia Gastrointestinal: + abdominal pain (chronic left lower quadrant pain ); no nausea, no vomiting and no diarrhea/loose stools Physical Exam Constitutional: WD/WN, vitals as above + obese; no acute distress Eyes: PERRL, conjunctivae normal, anicteric sclerae ENMT: external ear and nose normal, oropharynx normal Neck: trachea midline, no thyromegaly Respiratory: normal respiratory effort, lungs clear to auscultation Cardiovascular: RRR, no murmur, no edema Gastrointestinal (Abdomen): Percussion/Palpation: abdomen soft; abdomen nontender Musculoskeletal: Extremities: + foot abnormality (swollen , tender , eccymosis noted on dorsal left foot ) Left Skin: no rashes, warm and dry Neurologic: PERRL, EOMI, accommodation nl, no face palsy, no dysarthria Psychiatric: A+Ox3, euthymic affect Orientation: alert and oriented x 3 Results & Data Results & Data ([facility]) Vital Signs (Past 12 Hours) Vital Signs Temp Pulse Pulse Resp BP Pulse Ox 02/09/20 08:21 37.2 C 101 H 20 116/81 94 02/09/20 07:16 90 02/09/20 02:02 36.9 C 97 H 18 119/75 96 02/09/20 01:23 90 (1) Sepsis Sepsis acute organ dysfunction status: without acute organ dysfunction Sepsis type: sepsis due to unspecified organism Qualified Code(s): A41.9 - Sepsis, unspecified organism
--- NOTE | 2020-02-09 12:26 | Hospitalist Progress Note ---
Date of Service February 09, 2020 Assessment & Plan Admission and Anticipated Discharge Date Admission Date: February 05, 2020 Subjective ATTENDING NOTE : EKG Reviewed : Qtc improved to 397 ordered for Reglan 5 mg AC meal for gastroparesis Lower ext Doppler : negative for DVT Carol Garrett MD Results & Data Results & Data ([facility]) Vital Signs (Past 12 Hours) Vital Signs Temp Pulse Pulse Resp BP Pulse Ox 02/09/20 08:21 37.2 C 101 H 20 116/81 94 02/09/20 07:16 90 02/09/20 02:02 36.9 C 97 H 18 119/75 96 02/09/20 01:23 90
[2020-02-09] MEDS: LACTOBACILLUS ACIDOPHILUS (FLORANEX) TAB PO SCH ×3 (12:36→20:41)
--- NOTE | 2020-02-09 13:36 | XRay Report ---
XR foot LT min 3V routine CLINICAL HISTORY: Trauma. Left foot pain COMPARISON: None. DISCUSSION: The bones are osteopenic. There is dorsal soft tissue swelling. There are acute fractures involving the proximal second and third metatarsals. There is no definite intra-articular extension. There is a plantar calcaneal spur. IMPRESSION: Acute fractures involving the proximal second and third metatarsals. ACT 112: Negative or not required by law. Electronically signed by: Hank Coronado M.D. 02/09/2020 1:35 PM
--- NOTE | 2020-02-09 15:11 | Hospitalist Progress Note ---
Date of Service February 09, 2020 Assessment & Plan Admission and Anticipated Discharge Date Admission Date: February 05, 2020 Subjective ATTENDING NOTE : XR foot LT min 3V routine 02/09/20 -report reviewed The bones are osteopenic. There is dorsal soft tissue swelling. There are acute fractures involving the proximal second and third metatarsals. There is no definite intra-articular extension. There is a plantar calcaneal spur. IMPRESSION: Acute fractures involving the proximal second and third metatarsals. Orthopedics consult requested cont pain control non wt bearing on left lower ext Carol Garertt MD Results & Data Results & Data ([facility]) Vital Signs (Past 12 Hours) Vital Signs Temp Pulse Pulse Resp BP Pulse Ox 02/09/20 08:21 37.2 C 101 H 20 116/81 94 02/09/20 07:16 90
[2020-02-09] MEDS: METOCLOPRAMIDE HCL 5 MG TABLET PO SCH ×2 (16:30→20:43)
[2020-02-09] MEDS: cefTRIAXone SODIUM 2,000 MG in DEXTROSE 5% 50 ML IV SCH (16:33)
[2020-02-09] MEDS: PROMETHAZINE HCL 12.5 MG in SODIUM CHLORIDE 0.9% 50 ML IV PRN (18:08)
[2020-02-09] MEDS: ATORVASTATIN 40 MG TAB PO SCH (20:42)
[2020-02-09] MEDS: CLOPIDOGREL BISULFATE 75 MG TAB PO SCH (20:42)
[2020-02-09] MEDS: MAGNESIUM OXIDE 400 MG TAB PO SCH (20:43)
[2020-02-10] MEDS: HEPARIN SOD 5,000 UNIT/0.5 ML VIAL SQ SCH ×3 (00:01→17:11)
[2020-02-10] MEDS: TRAMADOL HCL 50 MG TABLET PO PRN ×5 (05:27→20:27)
[2020-02-10 06:52] LABS: BUN Creatinine Ratio 7.3 (10-20); Calcium 8.8 mg/dl (8.5-10.1); Est GFR (Non-African American) 50.1; Potassium 3.4 mmol/L (3.5-5.1)
[2020-02-10] MEDS: CHOLECALCIFEROL 1,000 UNITS 25 MCG TAB PO SCH (08:06)
[2020-02-10] MEDS: METOPROLOL SUCC 50MG EXT REL TAB PO SCH ×2 (08:06→20:28)
[2020-02-10] MEDS: METOCLOPRAMIDE HCL 5 MG TABLET PO SCH ×4 (08:06→20:28)
[2020-02-10] MEDS: PANTOprazole 40 MG TAB PO SCH ×2 (08:06→20:28)
[2020-02-10] MEDS: GABAPENTIN 300 MG CAP PO SCH ×3 (08:06→17:11)
[2020-02-10] MEDS: LACTOBACILLUS ACIDOPHILUS (FLORANEX) TAB PO SCH ×4 (08:06→20:28)
[2020-02-10] MEDS: FERROUS SULFATE 325 MG TAB PO SCH ×2 (08:06→20:28)
[2020-02-10] MEDS: SACCHAROMYCES BOULARDII 250 MG CAP PO SCH ×2 (08:06→20:27)
[2020-02-10] MEDS: INSULIN ASPART 100 UNITS/ML 3 ML PEN SC SCH ×4 (08:09→20:31)
--- NOTE | 2020-02-10 09:03 | Electrocardiogram Report ---
Test Reason : Blood Pressure : / mmHG Vent. Rate : 081 BPM Atrial Rate : 081 BPM P-R Int : 154 ms QRS Dur : 068 ms QT Int : 338 ms P-R-T Axes : -01 013 052 degrees QTc Int : 392 ms Normal sinus rhythm Normal ECG When compared with ECG of 05-FEB-2020 17:24, No significant change was found Confirmed by Joshua Hobson ([id number]) on 02/10/2020 9:03:33 AM Referred By: REFERRED SELF Confirmed By:Joshua Hobson
[2020-02-10] MEDS ORDERED: POTASSIUM CHLORIDE 20 MEQ TABCR PO STA (11:17)
--- NOTE | 2020-02-10 11:17 | Hospitalist Progress Note ---
Date of Service February 10, 2020 Assessment & Plan (1) Sepsis: FALL /LEFT ANKLE FRACTURE : pt slipped on her urine and sustained a fall at night 02/07/20 did not had any dizzy spell or lightheadedness prior to that XR foot LT min 3V routine 02/09/20 -report reviewed The bones are osteopenic. There is dorsal soft tissue swelling. There are acute fractures involving the proximal second and third metatarsals. There is no definite intra-articular extension. There is a plantar calcaneal spur. IMPRESSION: Acute fractures involving the proximal second and third metatarsals. Orthopedics consult requested cont pain control non wt bearing on left lower ext SEPSIS SECONDARY TO POSSIBLE PYELONEPHRITIS HISTORY OF RECURRENT UTI --admitted with tachycardia , fever -abdominal pain possible source of infection Urinary tract , ( + left flank pain possible due to pyelopnephritis ) lactate normal 1.6 Positive UA -- urine culture : yeast /non ruben nasal MRSA: negative --Antibiotic changed to IV Rocephin on Day # 6 completed total 7 days of tx added Lactinex for loose stool COVID 19 NEGATIVE SARS-CoV-2 RNA PCR -negative pt is ruled out of COVID-19 disease ACUTE RENAL FAILURE ON CKD 3 -resolved , cr improved to baseline appreciate input from nephrology HYPOKALEMIA : Replaced EPIGASTRIC PAIN, POSSIBLY FROM HIATAL HERNIA? -- chronic /presented with abdominal bloating , nausea pt had extensive work ups , multiple CT abdomen , recent EGD for GI symptoms -all were negative for pathology except for Hiatal Hernia GI symptoms has resolved diet advanced to solid -tolerating well appreciate input from GI , Per GI : Suspect gastroparesis. DDX may include bolus trapping hiatal hernia. -started on Reglan 5 mg PO Outpt gastric emptying study DM 2 -check Hb a1c , will D/w certified breastfeeding educator /glycemic pharmacy -for option of different oral hypoglycemic ( metformin will be D/clayton for possible GI side effects: nausea /bloating /loose stool ) Insulin sliding scale COPD CHRONIC RESPIRATORY FAILURE -- not in exacerbation/no wheeze , -- at baseline 2 L nasal cannula-cont GERD -- continue usual Protonix DEPRESSION -- hold usual Doxepin, Duloxetine, Oxcarbazepine for elevated QT mood stable follow daily EKG to assess Qtc DVT PROPHYLAXIS : -- Heparin Subcutaneous Disposition -ISOLATION PRECAUTION D/CL[facility]TON PT/OT eval requested may need rehab given acute left foot fx Admission and Anticipated Discharge Date Admission Date: February 05, 2020 Subjective pt complains of pain on left foot constant aching pain worse with movement , unable to bear wt no fever or chills GI symptoms , Nausea /vomiting has resolved vitals stable Review of Systems Review of Systems: All systems reviewed & are unremarkable except as noted in HPI & below Physical Exam Constitutional: WD/WN, vitals as above + obese; no acute distress Eyes: PERRL, conjunctivae normal, anicteric sclerae ENMT: external ear and nose normal, oropharynx normal Neck: trachea midline, no thyromegaly Respiratory: normal respiratory effort, lungs clear to auscultation Cardiovascular: RRR, no murmur, no edema Gastrointestinal (Abdomen): Percussion/Palpation: abdomen soft; abdomen nontender Musculoskeletal: no cyanosis or clubbing, extremities motor strength 5/5 Extremities: + foot abnormality (swollen , tender , eccymosis noted on dorsal left foot ) Skin: no rashes, warm and dry Neurologic: PERRL, EOMI, accommodation nl, no face palsy, no dysarthria Psychiatric: A+Ox3, euthymic affect Orientation: alert and oriented x 3 Affect: + anxious affect and + tearful affect Results & Data Results & Data ([facility]) Vital Signs (Past 12 Hours) Vital Signs Temp Pulse Resp BP Pulse Ox Pulse Ox 02/10/20 07:29 36.8 C 78 17 105/70 96 02/10/20 01:00 95 (1) Sepsis Sepsis acute organ dysfunction status: without acute organ dysfunction Sepsis type: sepsis due to unspecified organism Qualified Code(s): A41.9 - Sepsis, unspecified organism
[2020-02-10] MEDS ORDERED: HYDROmorphone INJ 0.5 MG/0.5 ML SYR IV STA (11:37)
--- NOTE | 2020-02-10 17:26 | Consultation Report ---
DATE OF CONSULTATION: 02/10/2020 HISTORY OF PRESENT ILLNESS: This is a 64-year-old female seen at the request of Dr. Camejo and Dr. Garrett for left foot pain. Apparently, the patient was admitted on 02/04 for sepsis with possible pyelonephritis and rule out COVID-19 with epigastric pain, acute renal failure, diabetes, exacerbation of COPD, GERD, depression and other medical comorbidities. The patient was having persistent epigastric pain and pressure, worsened with food intake with left-sided flank pain, dysuria and chills. She had an exacerbation of her COPD, presented to the ER, she was evaluated and admitted to the hospitalist service. The patient was under the care and management for the medical conditions as noted above and then unfortunately on 02/07/2020 had a slip and fall at night when she was in the bathroom, slipped on some of her urine and struck her foot with a twisting injury. Difficulty with weightbearing and walking on the left foot. She had appropriate workup including radiographs, which demonstrated fractures of the second and third metatarsals. The patient was then kept nonweightbearing and orthopedics was consulted at that time. During discussion with the patient today, she has noted that the pain has been somewhat manageable with icing and elevation and has had no exacerbation of symptoms. She does have discomfort with transferring using the left foot. She has noted swelling. PAST MEDICAL HISTORY: Anxiety, asthma, bladder infection, CHF, chronic back pain, chronic headaches, CKD stage III, chronic renal insufficiency, COPD, DVT in the left lower extremity - could not recall the date. She was treated with blood thinners. Degenerative disc disease, depression, diabetes mellitus type 2, GERD, history of colon cancer and bowel resection, hyperlipidemia, hypertension, kidney stones, morbid obesity with BMI of 40-44.9, myocardial infarction in 10/2017, chronic anticoagulation therapy, Plavix, home O2 at 2 liters all times, osteoarthritis, poor historian. PAST SURGICAL HISTORY: History of right hand surgery, appendectomy, bilateral cataracts, blepharoplasty, bowel resection due to colon cancer, cardiac cath in 03/2018, colonoscopy, cystoscopy, EGD, kidney surgery, lithotripsy, tooth extraction, total abdominal hysterectomy with bilateral oophorectomy, cholecystectomy. ALLERGIES: SALICYLATES, IODINATED CONTRAST, MEPERIDINE, MORPHINE, AMOXICILLIN, ASPIRIN, CLAVULANIC ACID, HYDROMORPHONE, FENTANYL, AND TRAMADOL. HOME MEDICATIONS: Please see the extensive list as noted above. SOCIAL HISTORY: She is . She lives alone and has home caregivers. Denies tobacco. Her smokes, daughter smokes. Denies alcohol or drug use. She is retired. PHYSICAL EXAMINATION: This is an obese 64-year-old female lying supine in her hospital room bed. She is alert and oriented x3. Speech is clear and fluent. Affect is appropriate. Examination of the left lower extremity demonstrates edema 2/4 in bilateral lower extremities. Palpable pulses are noted. Sensation is intact to bilateral feet. She has tenderness to palpation with dorsal ecchymosis of the left foot at the mid foot. She has tenderness over the base of the second and third metatarsals. She is active and passive range of motion of her toes; however, limited on the left compared to the right. Radiographs demonstrate a nondisplaced fracture of the second and third metatarsal bases, left foot. Local edema and swelling is noted on the radiograph. IMPRESSION: Left second and third metatarsal base fractures of the foot. No significant displacement secondary to a slip and fall. RECOMMENDATIONS: Partial weightbearing with a high tide walking boot, wear the boot in bed for comfort. Ice to the foot. Limit weightbearing for the next 6 weeks. May take the boot off to sleep and shower if she is comfortable. Follow up with Dr. Small in the orthopedic clinic for radiographs and further followup. Nonoperative care at this time. Thank you for the opportunity to consult in the care of this patient.
[2020-02-10] MEDS: ATORVASTATIN 40 MG TAB PO SCH (20:28)
[2020-02-10] MEDS: CLOPIDOGREL BISULFATE 75 MG TAB PO SCH (20:28)
[2020-02-10] MEDS: MAGNESIUM OXIDE 400 MG TAB PO SCH (20:28)
[2020-02-11] MEDS: TRAMADOL HCL 50 MG TABLET PO PRN ×5 (01:00→17:33)
[2020-02-11] MEDS: GABAPENTIN 300 MG CAP PO SCH ×4 (01:01→23:17)
[2020-02-11] MEDS: HEPARIN SOD 5,000 UNIT/0.5 ML VIAL SQ SCH ×4 (01:02→23:18)
[2020-02-11 06:33] LABS: Estimated Average Glucose 128 mg/dl; Hemoglobin A1C 6.1 % (4.5-5.6)
[2020-02-11 06:50] LABS: BUN Creatinine Ratio 8.3 (10-20); Est GFR (African American) 63.4; Est GFR (Non-African American) 54.7; Potassium 3.7 mmol/L (3.5-5.1)
[2020-02-11] MEDS: SACCHAROMYCES BOULARDII 250 MG CAP PO SCH ×2 (08:12→19:29)
[2020-02-11] MEDS: METOCLOPRAMIDE HCL 5 MG TABLET PO SCH ×4 (08:12→21:15)
[2020-02-11] MEDS: CHOLECALCIFEROL 1,000 UNITS 25 MCG TAB PO SCH (08:12)
[2020-02-11] MEDS: METOPROLOL SUCC 50MG EXT REL TAB PO SCH ×2 (08:12→19:26)
[2020-02-11] MEDS: LACTOBACILLUS ACIDOPHILUS (FLORANEX) TAB PO SCH ×4 (08:13→19:27)
[2020-02-11] MEDS: FERROUS SULFATE 325 MG TAB PO SCH ×2 (08:13→19:27)
[2020-02-11] MEDS: PANTOprazole 40 MG TAB PO SCH ×2 (08:13→19:26)
[2020-02-11] MEDS: INSULIN ASPART 100 UNITS/ML 3 ML PEN SC SCH ×4 (08:17→21:27)
--- NOTE | 2020-02-11 18:00 | Hospitalist Progress Note ---
Date of Service February 11, 2020 Assessment & Plan (1) Sepsis: FALL /LEFT ANKLE FRACTURE : pt slipped on her urine and sustained a fall at night 02/07/20 did not had any dizzy spell or lightheadedness prior to that XR foot LT min 3V routine 02/09/20 -report reviewed The bones are osteopenic. There is dorsal soft tissue swelling. There are acute fractures involving the proximal second and third metatarsals. There is no definite intra-articular extension. There is a plantar calcaneal spur. IMPRESSION: Acute fractures involving the proximal second and third metatarsals. Orthopedics consult requested-appreciate input RECOMMENDATIONS FROM ORTHO : no surgery needed Partial weightbearing with a high tide walking boot, Limit weightbearing/partial wt bearing for the next 6 weeks. May take the boot off to sleep and shower if comfortable. Follow up with Dr. Small in the orthopedic clinic for repeat xray of foot in 4 weeks SEPSIS SECONDARY TO POSSIBLE PYELONEPHRITIS HISTORY OF RECURRENT UTI --admitted with tachycardia , fever -abdominal pain possible source of infection Urinary tract , ( + left flank pain possible due to pyelopnephritis ) lactate normal 1.6 Positive UA -- urine culture : yeast /non ruben nasal MRSA: negative --Antibiotic changed to IV Rocephin on Day # 6 completed total 7 days of tx added Lactinex for loose stool COVID 19 NEGATIVE SARS-CoV-2 RNA PCR -negative pt is ruled out of COVID-19 disease ACUTE RENAL FAILURE ON CKD 3 -resolved , cr improved to baseline appreciate input from nephrology HYPOKALEMIA : Replaced EPIGASTRIC PAIN, POSSIBLY FROM HIATAL HERNIA? -- chronic /presented with abdominal bloating , nausea pt had extensive work ups , multiple CT abdomen , recent EGD for GI symptoms -all were negative for pathology except for Hiatal Hernia GI symptoms has resolved diet advanced to solid -tolerating well appreciate input from GI , Per GI : Suspect gastroparesis. DDX may include bolus trapping hiatal hernia. -started on Reglan 5 mg PO -reporting improvement of symptoms Outpt gastric emptying study DM 2 -check Hb a1c , will D/w tobacco prevention health educator /glycemic pharmacy -for option of different oral hypoglycemic ( metformin will be D/clayton for possible GI side effects: nausea /bloating /loose stool ) Insulin sliding scale COPD CHRONIC RESPIRATORY FAILURE -- not in exacerbation/no wheeze , -- at baseline 2 L nasal cannula-cont GERD -- continue usual Protonix DEPRESSION -- hold usual Doxepin, Duloxetine, Oxcarbazepine for elevated QT mood stable follow daily EKG to assess Qtc DVT PROPHYLAXIS : -- Heparin Subcutaneous Disposition -ISOLATION PRECAUTION D/CL[facility] DISPOSITION : discharge home in next 24-48 hrs Admission and Anticipated Discharge Date Admission Date: February 05, 2020 Subjective left foot pain and swelling has improved no GI symptoms no cough , no fever or chills breathing back to baseline pt seen by Orthopedics , conservative approach with partial wt bearing on left foot pt is hoping to return home with care givers instead of going to skilled rehab Physical Exam Constitutional: WD/WN, vitals as above + obese; no acute distress Eyes: PERRL, conjunctivae normal, anicteric sclerae ENMT: external ear and nose normal, oropharynx normal Neck: trachea midline, no thyromegaly Respiratory: normal respiratory effort, lungs clear to auscultation Cardiovascular: RRR, no murmur, no edema Gastrointestinal (Abdomen): Percussion/Palpation: abdomen soft; abdomen nontender Musculoskeletal: no cyanosis or clubbing, extremities motor strength 5/5 Skin: no rashes, warm and dry Neurologic: PERRL, EOMI, accommodation nl, no face palsy, no dysarthria Psychiatric: A+Ox3, euthymic affect Orientation: alert and oriented x 3 Affect: + tearful affect Results & Data Results & Data ([facility]) Vital Signs (Past 12 Hours) Vital Signs Temp Pulse Resp BP Pulse Ox 02/11/20 15:33 37.0 C 82 20 104/69 97 02/11/20 07:48 36.7 C 97 H 20 108/75 93 (1) Sepsis Sepsis acute organ dysfunction status: without acute organ dysfunction Sepsis type: sepsis due to unspecified organism Qualified Code(s): A41.9 - Sepsis, unspecified organism
[2020-02-11] MEDS: MAGNESIUM OXIDE 400 MG TAB PO SCH (19:26)
[2020-02-11] MEDS: ATORVASTATIN 40 MG TAB PO SCH (19:28)
[2020-02-11] MEDS: CLOPIDOGREL BISULFATE 75 MG TAB PO SCH (19:29)
[2020-02-12] MEDS: METOCLOPRAMIDE HCL 5 MG TABLET PO SCH ×2 (08:02→11:48)
[2020-02-12] MEDS: FERROUS SULFATE 325 MG TAB PO SCH (08:02)
[2020-02-12] MEDS: CHOLECALCIFEROL 1,000 UNITS 25 MCG TAB PO SCH (08:03)
[2020-02-12] MEDS: PANTOprazole 40 MG TAB PO SCH (08:03)
[2020-02-12] MEDS: LACTOBACILLUS ACIDOPHILUS (FLORANEX) TAB PO SCH ×2 (08:03→11:48)
[2020-02-12] MEDS: METOPROLOL SUCC 50MG EXT REL TAB PO SCH (08:03)
[2020-02-12] MEDS: SACCHAROMYCES BOULARDII 250 MG CAP PO SCH (08:03)
[2020-02-12] MEDS: GABAPENTIN 300 MG CAP PO SCH (08:03)
[2020-02-12] MEDS: HEPARIN SOD 5,000 UNIT/0.5 ML VIAL SQ SCH (08:04)
[2020-02-12] MEDS: INSULIN ASPART 100 UNITS/ML 3 ML PEN SC SCH ×2 (08:08→11:49)
[2020-02-12] MEDS: TRAMADOL HCL 50 MG TABLET PO PRN (08:11)
--- NOTE | 2020-02-12 15:15 | Discharge Summary ---
Date of Service February 12, 2020 Admission HPI Per Admitting Provider History of Present Illness 64 year old female with history of Nephrolithiasis, E coli UTI, DM 2, CKD 3, GERD, Depression, COPD, Chronic Respiratory Failure presenting with abdominal pain with fever. Patient was admitted to [facility] last November 2019 for Pyelonephritis and had an ER visit earlier this month for possible UTI for which she was prescribed with Cefdinir course. Patient reports for the past 2 days, she is having persistent epigastric pain, "pressure", non radiating, worsened with food intake. She also reports left sided flank pain with dysuria and chills. No shortness of breath, cough, sputum, nausea or vomiting. No palpitations, dizziness. Symptoms prompted consult to ER. At the ER, patient was febrile 38.3, tachycardic 133, with WBC of 18.9. CT abdomen: no acute process UA: pending CXR: no infiltrate She was given IV fluids, Cefepime, with resolution of tachycardia. On exam, patient was seen resting in bed, comfortable, not in distress. Reports persistent epigastric pain, worse with food intake as well as left sided flank pain. No active shortness of breath, chest pain, palpitations, dizziness. No other symptoms. Primary Care Provider: Lo Chand DO Principal Diagnosis FALL /ACUTE FRACTURE OF LEFT FOOT ( acute fractures involving the proximal second and third metatarsals.) SEPSIS DUE TO PYELONEPHRITIS /HISTORY OF RECURRENT UTI-RESOLVED ACUTE RENAL FAILURE ON CHRONIC KIDNEY DISEASE STAGE 3 -RESOLVED Discharge Exam Constitutional WD/WN, vitals as above + obese; no acute distress Eyes PERRL, conjunctivae normal, anicteric sclerae ENMT external ear and nose normal, oropharynx normal Neck trachea midline, no thyromegaly Respiratory normal respiratory effort, lungs clear to auscultation Cardiovascular RRR, no murmur, no edema Gastrointestinal (Abdomen) Percussion/Palpation: abdomen soft; abdomen nontender Musculoskeletal no cyanosis or clubbing, extremities motor strength 5/5 Skin no rashes, warm and dry Neurologic PERRL, EOMI, accommodation nl, no face palsy, no dysarthria Psychiatric A+Ox3, euthymic affect Orientation: alert and oriented x 3 Discharge Data Allergies Allergy/AdvReac Type Severity Reaction Status Date / Time salicylates Allergy Severe SHORTNESS Verified 02/05/20 12:55 OF BREATH Iodinated Contrast Media Allergy Intermediate EYES Verified 02/05/20 12:55 SWELLING/Hives meperidine Allergy Intermediate ITCH Verified 02/05/20 12:55 morphine Allergy Intermediate ITCH Verified 02/05/20 12:55 amoxicillin [From Augmentin] Allergy Mild Rash Verified 02/05/20 12:55 aspirin Allergy Mild FACIAL Verified 02/05/20 12:55 SWELLING clavulanic acid Allergy Mild Rash Verified 02/05/20 12:55 [From Augmentin] hydromorphone Allergy Mild RASH/ITCHIN Verified 02/05/20 12:55 G fentanyl Allergy itching/felt Verified 02/05/20 12:55 like throat closing tramadol AdvReac Mild itch Verified 02/05/20 12:55 Consultations 02/05/20 14:36 ED Decision to Admit Stat 02/05/20 17:50 Consult Gastroenterology Routine 02/06/20 09:19 Consult Nephrology Routine 02/09/20 15:09 Consult Orthopedic Surgery Routine Ordered Studies 02/05/20 12:56 CT abd pelvis wo con Stat 02/08/20 01:12 CT head/brain wo con Urgent 02/09/20 08:12 US venous doppler LE Routine Hospital Course (1) Sepsis: FALL /LEFT ANKLE FRACTURE : pt slipped on her urine and sustained a fall at night 02/07/20 did not had any dizzy spell or lightheadedness prior to that XR foot LT min 3V routine 02/09/20 : The bones are osteopenic. There is dorsal soft tissue swelling. There are acute fractures involving the proximal second and third metatarsals. There is no definite intra-articular extension. There is a plantar calcaneal spur. IMPRESSION: Acute fractures involving the proximal second and third metatarsals. Orthopedics consult requested-appreciate input RECOMMENDATIONS FROM ORTHO : no surgery needed Partial weightbearing with a high tide walking boot, Limit weightbearing/partial wt bearing for the next 6 weeks. May take the boot off to sleep and shower if comfortable. Follow up with Dr. Small in the orthopedic clinic for repeat xray of foot in 4 weeks SEPSIS SECONDARY TO POSSIBLE PYELONEPHRITIS HISTORY OF RECURRENT UTI --admitted with tachycardia , fever -abdominal pain possible source of infection Urinary tract , ( + left flank pain possible due to pyelonephritis ) -- urine culture : yeast /non ruben nasal MRSA: negative completed total 7 days of tx COVID 19 NEGATIVE SARS-CoV-2 RNA PCR -negative pt is ruled out of COVID-19 disease ACUTE RENAL FAILURE ON CKD 3 -resolved , cr improved to baseline appreciate input from nephrology HYPOKALEMIA : Replaced EPIGASTRIC PAIN, POSSIBLY FROM HIATAL HERNIA? -- chronic /presented with abdominal bloating , nausea pt had extensive work ups , multiple CT abdomen , recent EGD for GI symptoms -all were negative for pathology except for Hiatal Hernia GI symptoms has resolved diet advanced to solid -tolerating well appreciate input from GI , Per GI : Suspect gastroparesis. DDX may include bolus trapping hiatal hernia. -started on Reglan 5 mg PO -reporting improvement of symptoms Outpt gastric emptying study DM 2 -Hb A1c 6.1 -showing good glycemic control , -will change Metformin to Metformin XR -which has minimum GI side effects COPD CHRONIC RESPIRATORY FAILURE -- not in exacerbation/no wheeze , -- at baseline 2 L nasal cannula- GERD -- continue usual Protonix DEPRESSION -- cont on Doxepin, Duloxetine, Oxcarbazepine ( EKG shows normal Qtc mood stable DVT PROPHYLAXIS : -- Heparin Subcutaneous DISPOSITION : stable to be discharged home today with home health Total Time Total Time Spent Total Time Spent (In Minutes): approx 40 mins Total Time Includes: Discharge Planning, Medication Reconciliation and Communication With Other Providers Discharge Plan Discharge Items Patient Disposition: Home - Home Health Services Reason For Visit: SEPSIS Discharge Diagnosis: FALL /ACUTE FRACTURE OF LEFT FOOT ( acute fractures involving the proximal second and third metatarsals.) SEPSIS DUE TO PYELONEPHRITIS /HISTORY OF RECURRENT UTI-RESOLVED ACUTE RENAL FAILURE ON CHRONIC KIDNEY DISEASE STAGE 3 -RESOLVED Condition on Discharge: Fair Activity: As commented below Weightbearing: Left partial Non-emergency contact: Primary Care Provider Call non-emergency contact if: you have any medication questions Follow-up/Referrals: Ronda Niño MD, PhD [Physician] - Mg Small DO [Surgeon] - (FOLLOW UP IN 4 WEEKS , PLEASE CALL TO SCHEDULE APPOINTMENT ) Lo Chand DO [Primary Care Provider] - 02/18/20 10:40 am (Your appointment is with Dr. Naidu.) Diet: Carb Consistent or DM2 and Heart Healthy Addtl Attending Provider Instructions: FOLLOW UP WITH ORTHOPEDICS DR SMALL IN 4 WEEKS , PLEASE CALL TO SCHEDULE AN APPOINTMENT YOU WILL NEED A REPEAT XRAY OF YOUR LEFT FOOT WILL BE DONE AT [facility] /DR SMALL'S OFFICE Partial weightbearing with a high tide walking boot, Limit weightbearing/partial wt bearing for the next 6 weeks. May take the boot off to sleep and shower if comfortable. FOLLOW UP WITH GASTROENTEROLOGY FOR OUT PATIENT GASTRIC EMPTYING STUDY FOR YOUR SYMPTOMS OF NAUSEA /ABDOMINAL BLOATING /DISCOMFORT TAKE REGLAN 5 MG TABLET TWICE DAILY FOR 30 DAYS ONLY TO HELP WITH NAUSEA AND ABDOMINAL DISCOMFORT YOU WILL NEED TO HAVE EGK IN 2 WEEKS TO ASSESS ANY EKG CHANGE DUE TO REGLAN Addtl Office Assistant Receptionist Provider Instructions: -DO NOT TAKE HIGH DOSE ASPIRIN, ADVIL , ALEVE, MOTRIN , NAPROXEN , IBUPROPHEN - AVOID ALL THESE GROUP OF OVER THE COUNTER PAIN MEDICATION BELONGING TO GROUP nephrology will order bmp to be drawn at hospital follow up visit with Dr Chand -needs CKD clinic visit to be scheduled for March with Dr Ronda Niño >> if you do note received word of this appointment by February 21, Please call :[phone] to appointment Pending Studies at Discharge: Yes Studies:: EKG IN 2 WEEKS TO ASSESS QTC PROLONGATION PT IS ON REGLAN AND CYMBALTA Stand-Alone Forms: My [employer], Smoking Cessation Medications and DC Order Prescriptions: New oxycodone 5 mg tablet 5 mg PO Q8H PRN (Reason: pain) Qty: 10 RF: 0 metoclopramide HCl 5 mg Tablet 5 mg PO BID 30 Days Qty: 60 RF: 0 Continued metoprolol succinate 50 mg tablet extended release 24 hr 50 mg PO BID RF: 0 albuterol sulfate 90 mcg/actuation Hfa Aerosol Inhaler 2 puff INHALATION Q4H PRN (Reason: Shortness Of Breath) RF: 0 magnesium oxide 400 mg magnesium Tablet 400 mg PO HS RF: 0 doxepin 100 mg capsule 100 mg PO HS RF: 0 ferrous sulfate 325 mg (65 mg iron) tablet 325 mg PO BID RF: 0 metformin 500 mg tablet extended release 24 hr 500 mg PO QAM RF: 0 ondansetron 4 mg tablet,disintegrating 4 mg PO Q6H PRN (Reason: nausea and vomiting) Qty: 14 RF: 0 Florastor 250 mg capsule 250 mg PO BID Qty: 20 RF: 0 atorvastatin [Lipitor] 40 mg Tablet 40 mg PO QPM RF: 0 clopidogrel [Plavix] 75 mg Tablet 75 mg PO QPM RF: 0 pantoprazole [Protonix] 40 mg Tablet,Delayed Release (Dr/Ec) 40 mg PO BID RF: 0 gabapentin 300 mg Capsule 300 mg PO TID RF: 0 riboflavin (vitamin B2) 400 mg Tablet 400 mg PO QPM RF: 0 duloxetine 60 mg Capsule,Delayed Release(Dr/Ec) 60 mg PO QAM RF: 0 oxcarbazepine 300 mg tablet 300 mg PO BID RF: 0 cholecalciferol (vitamin D3) [Vitamin D3] 2,000 unit Capsule 2,000 unit PO QAM RF: 0 Discharge Orders: Discharge Order (Routine); Ordered 02/12/20 Ordered By: Carol Garrett Admission Data Admit Date/Time: 02/05/20 14:44 Attending Provider: Carol Garrett Admit Provider: Luis A Camejo Primary Care Provider: Lo Chand Other Providers: Luis A Camejo ; Juan Daniel York ; Ronda Niño ; Shlomo Shetty Elissa R. ; Roxana Mitchell ; Yunier Gresham ; Mg Small Other Interventions: Discharge Summary Assessment (RN) Last Done: 02/12/20 14:40
== END 2020-02-12 16:15 | disposition home health service (06) | DRG 872 ==
LOC: ED 12:06 → 2W 14:44 → SUATTDRO 14:44 → 2W 15:24

== ENCOUNTER 2020-08-17 13:31 | Inpatient (IN) ==
--- NOTE | 2020-08-17 14:45 | CT Scan Report ---
CT OF THE HEAD WITHOUT CONTRAST CLINICAL HISTORY: recurrent falls COMPARISON STUDY: Head CT February 12, 2020. TECHNIQUE: Helical axial images of the head were obtained without IV contrast. Automated exposure con trol was utilized for the study. A dose lowering technique was utilized adhering to the principles o f ALARA. FINDINGS: No acute intracranial hemorrhage, midline shift or mass effect is present. The ventricular system is unremarkable. The basal cisterns are patent. No extra-axial collections are present. There are no findings to suggest acute dural sinus thrombosis or acute territorial infarct. No significant calvarial abnormalities are present. Visualized portions of the sinuses and mastoid air cells are minnie ar. IMPRESSION: 1. No acute intracranial findings. 2. No calvarial fracture. ACT 112: Negative or not required by law. Electronically signed by: Abdirashid Motta M.D. 08/17/2020 2:43 PM
--- NOTE | 2020-08-17 14:47 | Emergency Department Note ---
History of Present Illness General Chief complaint: Fall Stated complaint: fall/ headache Time Seen by Provider: 08/17/20 13:53 History of Present Illness Provider complaint: Multiple falls Onset (ago): month(s) 1 Location: head and neck Maximum Pain Intensity: 9 Current Pain Intensity: 9 Associated symptoms: + headaches; no chest pain, no cough, no fever/chills and no shortness of breath 64-year-old female presents emergency department for recurrent falls. Patient states she has been getting increasingly dizzy feeling like she is going to pass out and then passes out and falls. She states she has fallen multiple times over the last month. She states she fell this morning and struck the back of her head is now having headache and neck pain. Patient is on Plavix. Patient denies any loss of consciousness. Home Medications Home Medications Medication Instructions Recorded Confirmed Type atorvastatin [Lipitor] 40 mg PO QPM 07/12/18 08/17/20 History clopidogrel [Plavix] 75 mg PO QPM 07/12/18 08/17/20 History gabapentin 300 mg PO TID 07/12/18 08/17/20 History pantoprazole [Protonix] 40 mg PO BID 07/12/18 08/17/20 History riboflavin (vitamin B2) 400 mg PO QPM 07/12/18 08/17/20 History duloxetine 60 mg PO QAM 10/16/18 08/17/20 History cholecalciferol (vitamin D3) 2,000 unit PO QAM 05/16/19 08/17/20 History [Vitamin D3] oxcarbazepine [Trileptal] 300 mg PO BID 05/16/19 08/17/20 History albuterol sulfate 2 puff INHALATION Q4H PRN 07/21/19 08/17/20 History metoprolol succinate 75 mg PO BID 07/21/19 08/17/20 History magnesium oxide 400 mg PO HS 10/05/19 08/17/20 History doxepin 100 mg PO HS 11/30/19 08/17/20 History ferrous sulfate 325 mg PO BID 11/30/19 08/17/20 History glipizide [Glucotrol XL] 2.5 mg PO DAILY #30 tab 02/12/20 08/17/20 Rx Forteo 20 mcg SUBCUT Q14D 05/06/20 08/17/20 History Saccharomyces boulardii [Florastor] 250 mg PO BID 08/17/20 08/17/20 History lidocaine 1 patch TOPICAL DAILY 08/17/20 08/17/20 History lisinopril 2.5 mg PO DAILY 08/17/20 08/17/20 History ondansetron 4 mg PO Q8H PRN 08/17/20 08/17/20 History Allergies Allergy/AdvReac Type Severity Reaction Status Date / Time salicylates Allergy Severe SHORTNESS Verified 08/17/20 14:29 OF BREATH Iodinated Contrast Media Allergy Intermediate EYES Verified 08/17/20 14:29 SWELLING/Hives amoxicillin [From Augmentin] Allergy Mild Rash Verified 08/17/20 14:29 aspirin Allergy Mild FACIAL Verified 08/17/20 14:29 SWELLING clavulanic acid Allergy Mild Rash Verified 08/17/20 14:29 [From Augmentin] hydromorphone Allergy Mild RASH/ITCHIN Verified 08/17/20 14:29 G fentanyl Allergy itching/felt Verified 08/17/20 14:29 like throat closing meperidine AdvReac Intermediate ITCH Verified 08/17/20 14:29 morphine AdvReac Intermediate ITCH Verified 08/17/20 14:29 tramadol AdvReac Mild itch Verified 08/17/20 14:29 Past Med/Surg History Medical History (Updated 08/17/20 @ 18:57 by Kurt Brock) Anxiety Asthma CHF (congestive heart failure) Chronic back pain Chronic headaches Chronic renal insufficiency stage 3, following with [facility] nephrology ([place]) COPD (chronic obstructive pulmonary disease) Deep vein thrombosis LLE - COULD NOT RECALL DATE - REPORTS SHE WAS TREATED AT [facility] W/ BLOOD THINNERS Degenerative disc disease Depression Diabetes mellitus, type 2 GERD (gastroesophageal reflux disease) Gram negative septicemia History of colon cancer 2012 S/P BOWEL RESECTION. History of esophageal dilatation Hyperlipidemia Hypertension Kidney stones Morbid obesity with BMI of 40.0-44.9, adult Myocardial Infarction 03/2018--> [facility] -- CARDIAC CATH --> NO STENTS/ANGIOPLASTY PER PT REPORT -- POOR HISTORIAN? REPORTS SHE IS ON PLAVIX FOR HEART - DENIES STENTS - DENIES ARRHYTHMIA - FOLLOWS W/ DR. TORRES On anticoagulant therapy plavix daily On home oxygen therapy 2L N/C at all times - states MD stopped this, patient states she is no longer using Osteoarthritis Poor historian Pyelonephritis Recurrent falls Seizure pt states "i think i had them a long time ago". no other information. Sepsis Surgical History H/O hand surgery RIGHT History of appendectomy History of bilateral cataract extraction History of blepharoplasty History of bowel resection d/t colon cancer History of cardiac cath 03/2018 - [place] - DENIES STENTS/ANGIOPLASTY - [facility] - FOLLOWS W/ DR. TORRES History of colonoscopy History of cystoscopy History of esophagogastroduodenoscopy (EGD) History of kidney surgery at age 9 yrs "something was wrong and had to fix it" History of lithotripsy History of tooth extraction History of total abdominal hysterectomy and bilateral salpingo-oophorectomy Hx of cholecystectomy Family History Other No pertinent family history in first degree relatives Social History Smoking Status: Former smoker Second Hand Exposure: No; Hx Alcohol Use: No Hx Substance Use: No Preferred Language: Algerian Communication Ability: Effective Automation Consultant Required: No Beliefs That Will Affect Care: None marital status: Current Living Situation: Alone Current Living Situation Comment: Has home caregivers Feels Safe at Home: Yes Assistive Devices: Glasses and Walker Review of Systems A total of 10 systems reviewed and were otherwise negative Physical Exam Vital Signs Vital Signs - 24 hr 08/17/20 13:36 08/17/20 13:39 08/17/20 13:44 Temperature 37.1 C Temperature Source Oral Pulse Rate 97 H 100 H 97 H Pulse Rate from SpO2 Sensor 97 H 97 H Respiratory Rate 19 18 19 Respiratory Effort / Characteristics Non-Labored Spontaneous Respiratory Depth Normal Blood Pressure 143/85 H 143/85 H Blood Pressure Mean 101 104 Blood Pressure Position Sitting Pulse Oximetry 93 95 92 Oxygen Delivery Method Room Air Sepsis Recent Fever Within 48 Hours No Sepsis New/Unexplained Change in Mental Status N/A Sepsis Action Taken by Nursing No Action Required 08/17/20 13:50 08/17/20 14:00 08/17/20 14:10 Temperature Temperature Source Pulse Rate 98 H 96 H 92 H Pulse Rate from SpO2 Sensor 98 H 96 H 92 H Respiratory Rate 17 16 16 Respiratory Effort / Characteristics Respiratory Depth Blood Pressure Blood Pressure Mean Blood Pressure Position Pulse Oximetry 94 92 92 Oxygen Delivery Method Sepsis Recent Fever Within 48 Hours Sepsis New/Unexplained Change in Mental Status Sepsis Action Taken by Nursing 08/17/20 14:33 08/17/20 14:40 08/17/20 14:50 Temperature Temperature Source Pulse Rate 98 H 96 H Pulse Rate from SpO2 Sensor 99 H 105 H 96 H Respiratory Rate 14 20 Respiratory Effort / Characteristics Respiratory Depth Blood Pressure Blood Pressure Mean Blood Pressure Position Pulse Oximetry 96 92 94 Oxygen Delivery Method Sepsis Recent Fever Within 48 Hours Sepsis New/Unexplained Change in Mental Status Sepsis Action Taken by Nursing 08/17/20 15:00 08/17/20 15:10 08/17/20 15:20 Temperature Temperature Source Pulse Rate 92 H 91 H 89 Pulse Rate from SpO2 Sensor Respiratory Rate 17 17 23 Respiratory Effort / Characteristics Respiratory Depth Blood Pressure Blood Pressure Mean Blood Pressure Position Pulse Oximetry Oxygen Delivery Method Sepsis Recent Fever Within 48 Hours Sepsis New/Unexplained Change in Mental Status Sepsis Action Taken by Nursing 08/17/20 15:30 08/17/20 15:40 08/17/20 15:50 Temperature Temperature Source Pulse Rate 88 84 85 Pulse Rate from SpO2 Sensor Respiratory Rate 12 20 17 Respiratory Effort / Characteristics Respiratory Depth Blood Pressure Blood Pressure Mean Blood Pressure Position Pulse Oximetry Oxygen Delivery Method Sepsis Recent Fever Within 48 Hours Sepsis New/Unexplained Change in Mental Status Sepsis Action Taken by Nursing 08/17/20 16:00 08/17/20 16:10 08/17/20 16:20 Temperature Temperature Source Pulse Rate 84 86 87 Pulse Rate from SpO2 Sensor Respiratory Rate 17 16 15 Respiratory Effort / Characteristics Respiratory Depth Blood Pressure Blood Pressure Mean Blood Pressure Position Pulse Oximetry Oxygen Delivery Method Sepsis Recent Fever Within 48 Hours Sepsis New/Unexplained Change in Mental Status Sepsis Action Taken by Nursing 08/17/20 16:30 08/17/20 16:40 08/17/20 16:50 Temperature Temperature Source Pulse Rate 81 93 H 85 Pulse Rate from SpO2 Sensor Respiratory Rate 24 14 18 Respiratory Effort / Characteristics Respiratory Depth Blood Pressure Blood Pressure Mean Blood Pressure Position Pulse Oximetry Oxygen Delivery Method Sepsis Recent Fever Within 48 Hours Sepsis New/Unexplained Change in Mental Status Sepsis Action Taken by Nursing 08/17/20 17:00 08/17/20 17:10 08/17/20 17:20 Temperature Temperature Source Pulse Rate 87 90 90 Pulse Rate from SpO2 Sensor Respiratory Rate 15 12 17 Respiratory Effort / Characteristics Respiratory Depth Blood Pressure Blood Pressure Mean Blood Pressure Position Pulse Oximetry Oxygen Delivery Method Sepsis Recent Fever Within 48 Hours Sepsis New/Unexplained Change in Mental Status Sepsis Action Taken by Nursing 08/17/20 17:30 08/17/20 17:40 08/17/20 17:50 Temperature Temperature Source Pulse Rate 94 H 85 85 Pulse Rate from SpO2 Sensor Respiratory Rate 18 14 16 Respiratory Effort / Characteristics Respiratory Depth Blood Pressure Blood Pressure Mean Blood Pressure Position Pulse Oximetry Oxygen Delivery Method Sepsis Recent Fever Within 48 Hours Sepsis New/Unexplained Change in Mental Status Sepsis Action Taken by Nursing 08/17/20 18:00 08/17/20 18:10 08/17/20 18:20 Temperature Temperature Source Pulse Rate 84 80 81 Pulse Rate from SpO2 Sensor Respiratory Rate 15 22 20 Respiratory Effort / Characteristics Respiratory Depth Blood Pressure Blood Pressure Mean Blood Pressure Position Pulse Oximetry Oxygen Delivery Method Sepsis Recent Fever Within 48 Hours Sepsis New/Unexplained Change in Mental Status Sepsis Action Taken by Nursing 08/17/20 18:33 Temperature Temperature Source Pulse Rate 82 Pulse Rate from SpO2 Sensor Respiratory Rate 20 Respiratory Effort / Characteristics Respiratory Depth Blood Pressure 136/85 Blood Pressure Mean Blood Pressure Position Pulse Oximetry 95 Oxygen Delivery Method Room Air Sepsis Recent Fever Within 48 Hours Sepsis New/Unexplained Change in Mental Status Sepsis Action Taken by Nursing Physical Exam GENERAL: She is oriented to person, place, and time. She appears well-developed and well-nourished. She does not appear distressed. HENT: Exam performed. -Head: Normocephalic and atraumatic. -Right Ear: External ear normal. No mastoid tenderness. -Left Ear: External ear normal. No mastoid tenderness. -Mouth/Throat: The oropharynx is clear and moist. No trismus in the jaw. No dental abscesses or uvula swelling. No oropharyngeal exudate or tonsillar abscesses. EYES: Conjunctivae and EOM are normal. Pupils are equal, round, and reactive to light. Right eye exhibits no discharge. Left eye exhibits no discharge. No s cleral icterus. NECK: Normal range of motion. Neck supple. No JVD present. No spinous process tenderness present. No carotid bruit present. No rigidity. No tracheal deviation and normal range of motion present. No Brudzinski's sign and no Kernig's sign noted. CV: Normal rate, regular rhythm, normal heart sounds and intact distal pulses. There is no peripheral edema. Palpable radial pulses bue. PULM/CHEST: Effort normal and breath sounds normal. No respiratory distress. No stridor. She has no wheezes. She has no rales. -Chest Wall: She exhibits no tenderness. ABD: The abdomen is soft. Bowel sounds are normal. She has no distension. No mass is present. There is no tenderness. There is no rebound, no guarding, no Wylie's sign and no tenderness at McBurney's point. Rovsig negative MUSC/SKEL: Normal range of motion. There is no peripheral edema, tenderness or deformity. LYMPH: No cervical adenopathy. NEURO: She is alert and oriented to person, place, and time. She has normal strength. No cranial nerve deficit or sensory deficit. Coordination and gait normal. GCS eye subscore is 4. GCS verbal subscore is 5. GCS motor subscore is 6. Cerebellar tests wnl. SKIN: Skin is warm and dry. She is not diaphoretic. PSYCH: She has a normal mood and affect. Behavior is normal. Judgment and th ought content normal. Course Course 1353: The patient was evaluated in room A4 A complete history and physical exam was performed. Cardiac monitoring: An order was placed for continuous cardiac monitoring. The monitor shows a rate of 90 with sinus rhythm 1633: Vital signs stable. Labs show a leukocytosis of 16.3. Creatinine is elevated 2.49, this is higher than the patient's baseline which is usually less than 2. Imaging shows bilateral pneumonia. Patient COVID-19 test was added. Patient be admitted to the [facility] service Dr. Ge. Patient treated with azithromycin and Rocephin for community-acquired pneumonia. Administered Medications Discontinued Medications Azithromycin (Azithromycin 250 Mg Tab) 500 mg PO NOW ONE Stop: 08/17/20 16:16 Last Admin: 08/17/20 16:46 Dose: 500 mg Documented by: [id number] Ceftriaxone Sodium (Rocephin) 1,000 mg in 50 mls @ 100 mls/hr IV NOW STA Stop: 08/17/20 16:44 Last Infusion: 08/17/20 18:27 Dose: 0 mls/hr Documented by: [id number] Admin: 08/17/20 16:45 Dose: 100 mls/hr Documented by: [id number] Sodium Chloride (Nss 1000ml) 1,000 mls @ 999 mls/hr IV .Q1H1M ONE Stop: 08/17/20 17:34 Last Infusion: 08/17/20 18:27 Dose: 0 mls/hr Documented by: [id number] Admin: 08/17/20 16:53 Dose: 999 mls/hr Documented by: [id number] Medical Decision Making Laboratory Data Result diagrams: 08/17/20 15:08 08/17/20 15:08 Lab Results 08/17/20 08/17/20 08/17/20 Range/Units 14:50 15:08 15:08 WBC 16.31 H (4.8-10.8) K/uL RBC 3.94 L (4.2-5.4) M/uL Hgb 11.7 L (12.0-16.0) g/dL Hct 38.8 (37-47) % MCV 98.5 (80-100) fL MCH 29.7 (25-34) pg MCHC 30.2 L (32-36) g/dL RDW Std Deviation 51.2 H (36.4-46.3) fL RDW Coeff of Teresa 14.2 (11.5-14.5) % Plt Count 230 (130-400) K/uL MPV 10.6 H (7.4-10.4) fL Immature Gran % (Auto) 0.3 % Neut % (Auto) 80.8 % Lymph % (Auto) 10.4 % [place] % (Auto) 7.1 % Eos % (Auto) 1.3 % Baso % (Auto) 0.1 % Neut # (Auto) 13.18 H (1.4-6.5) K/uL Lymph # (Auto) 1.70 (1.2-3.4) K/uL [place] # (Auto) 1.15 H (0.11-0.59) K/uL Eos # (Auto) 0.21 (0-0.5) K/uL Baso # (Auto) 0.02 (0-0.2) K/uL Immature Gran # (Auto) 0.05 H (0.00-0.02) K/uL PT 10.5 (9.0-12.0) Seconds INR 1.0 (0.9-1.1) APTT 27.9 (21.0-31.0) Seconds PTT Ratio 1.0 Sodium (136-145) mmol/L Potassium (3.5-5.1) mmol/L Chloride (98-107) mmol/L Carbon Dioxide (21-32) mmol/L Anion Gap (3-11) BUN (7-18) mg/dl Creatinine (0.6-1.2) mg/dl Est Cr Clr Drug Dosing ml/min Est GFR ( Amer) Est GFR (Non-Af Amer) BUN/Creatinine Ratio (10-20) Glucose (70-99) mg/dl Calcium (8.5-10.1) mg/dl Magnesium (1.8-2.4) mg/dl Troponin I (0-0.045) ng/ml Urine Color Yellow Urine Appearance Turbid A (Clear) Urine pH 5.5 (4.5-7.5) Ur Specific [place] 1.017 (1.000-1.030) Urine Protein 2+ H (Negative) Urine Glucose (UA) Negative (Negative) Urine Ketones Negative (Negative) Urine Blood 2+ H (Negative) Urine Nitrite Negative (Negative) Urine Bilirubin Negative (Negative) Urine Urobilinogen Negative (Negative) Ur Leukocyte Esterase 3+ H (Negative) Urine WBC (Auto) >30 H (0-5) /hpf Urine RBC (Auto) 0-4 (0-4) /hpf U Hyaline Cast (Auto) 1-5 (0-5) /lpf U Epithel Cells (Auto) >30 H (0-5) /lpf Urine Bacteria (Auto) 1+ H (Negative) Urine Yeast Not Reportable COVID-19 Eval Order COVID-19 PCR (Negative) 08/17/20 08/17/20 08/17/20 Range/Units 15:08 16:38 16:38 WBC (4.8-10.8) K/uL RBC (4.2-5.4) M/uL Hgb (12.0-16.0) g/dL Hct (37-47) % MCV (80-100) fL MCH (25-34) pg MCHC (32-36) g/dL RDW Std Deviation (36.4-46.3) fL RDW Coeff of Teresa (11.5-14.5) % Plt Count (130-400) K/uL MPV (7.4-10.4) fL Immature Gran % (Auto) % Neut % (Auto) % Lymph % (Auto) % [place] % (Auto) % Eos % (Auto) % Baso % (Auto) % Neut # (Auto) (1.4-6.5) K/uL Lymph # (Auto) (1.2-3.4) K/uL [place] # (Auto) (0.11-0.59) K/uL Eos # (Auto) (0-0.5) K/uL Baso # (Auto) (0-0.2) K/uL Immature Gran # (Auto) (0.00-0.02) K/uL PT (9.0-12.0) Seconds INR (0.9-1.1) APTT (21.0-31.0) Seconds PTT Ratio Sodium 142 (136-145) mmol/L Potassium 5.1 (3.5-5.1) mmol/L Chloride 115 H (98-107) mmol/L Carbon Dioxide 21 (21-32) mmol/L Anion Gap 6.0 (3-11) BUN 35 H (7-18) mg/dl Creatinine 2.49 H (0.6-1.2) mg/dl Est Cr Clr Drug Dosing 23.7 ml/min Est GFR ( Amer) 22.6 Est GFR (Non-Af Amer) 19.5 BUN/Creatinine Ratio 14.1 (10-20) Glucose 118 H (70-99) mg/dl Calcium 9.1 (8.5-10.1) mg/dl Magnesium 2.1 (1.8-2.4) mg/dl Troponin I < 0.015 (0-0.045) ng/ml Urine Color Urine Appearance (Clear) Urine pH (4.5-7.5) Ur Specific [place] (1.000-1.030) Urine Protein (Negative) Urine Glucose (UA) (Negative) Urine Ketones (Negative) Urine Blood (Negative) Urine Nitrite (Negative) Urine Bilirubin (Negative) Urine Urobilinogen (Negative) Ur Leukocyte Esterase (Negative) Urine WBC (Auto) (0-5) /hpf Urine RBC (Auto) (0-4) /hpf U Hyaline Cast (Auto) (0-5) /lpf U Epithel Cells (Auto) (0-5) /lpf Urine Bacteria (Auto) (Negative) Urine Yeast COVID-19 Eval Order Covid19 Done at [facility] COVID-19 PCR NEGATIVE (Negative) Imaging Data Radiologist's Impression: XR pelvis 1-2V routine CLINICAL HISTORY: recurrent falls COMPARISON: CT of the abdomen and pelvis February 05, 2020. FINDINGS: The sacroiliac joints and symphysis pubis are intact. No acute frac ture within the pelvis or hips is identified. IMPRESSION: No acute fracture within the pelvis or hips. ACT 112: Negative or not required by law. Electronically signed by: Abdirashid Motta M.D. 08/17/2020 2:49 PM Dictated: 08/17/20 1448Transcribed: 08/17/20 1448 XR chest 1V portable CLINICAL HISTORY: recurrent falls COMPARISON STUDY: Chest radiograph February 05, 2020. FINDINGS: Lung volumes are normal. A moderate sized hiatal hernia is noted. Cardiac size is normal. No pneumothorax or pleural effusion is noted. Mild asymmetric right lung airspace opacity is noted. This favors an infectious process. Cholecystectomy clips are incidentally noted. IMPRESSION: Subtle asymmetric right lung airspace opacity which favors an infectious process. ACT 112: Negative or not required by law. Electronically signed by: Abdirashid Motta M.D. 08/17/2020 2:51 PM Dictated: 08/17/20 1451Transcribed: 08/17/[address] OF THE HEAD WITHOUT CONTRAST CLINICAL HISTORY: recurrent falls COMPARISON STUDY: Head CT February 12, 2020. TECHNIQUE: Helical axial images of the head were obtained without IV contrast. Automated exposure control was utilized for the study. A dose lowering technique was utilized adhering to the principles of ALARA. FINDINGS: No acute intracranial hemorrhage, midline shift or mass effect is present. The ventricular system is unremarkable. The basal cisterns are patent. No extra-axial collections are present. There are no findings to suggest acute dural sinus thrombosis or acute territorial infarct. No significant calvarial abnormalities are present. Visualized portions of the sinuses and mastoid air cells are clear. IMPRESSION: 1. No acute intracranial findings. 2. No calvarial fracture. ACT 112: Negative or not required by law. Electronically signed by: Abdirashid Motta M.D. 08/17/2020 2:43 PM Dictated: 08/17/20 1442Transcribed: 08/17/[address] OF THE CERVICAL SPINE WITHOUT CONTRAST CLINICAL HISTORY: recurrent falls COMPARISON STUDY: No previous studies for comparison. TECHNIQUE: Helical axial images of the cervical spine were obtained without IV contrast. Sagittal and coronal reconstructions were viewed. Automated exposure control was utilized for the study. A dose lowering technique was utilized adhering to the principles of ALARA. FINDINGS: This exam is mildly compromised by artifact. No acute cervical spine fracture is noted. The craniocervical junction is intact. Facet joints are intact. A sclerotic lesion within C5 is probably benign. There is no prevertebral edema. There is moderate multilevel facet arthrosis and mild to moderate multilevel degenerative disc disease. Utilized portions the lung apices demonstrate airspace opacity within the right lung apex which favors an infectious process. IMPRESSION: 1. No acute cervical spine fracture or subluxation. Exam mildly compromised by motion artifact. 2. Mild airspace opacity within the right lung apex which favors an infectious process. ACT 112: Negative or not required by law. Electronically signed by: Abdirashid Motta M.D. 08/17/2020 2:48 PM Dictated: 08/17/20 1445Transcribed: 08/17/[address] OF THE ABDOMEN AND PELVIS WITHOUT CONTRAST CLINICAL HISTORY: recurrent falls COMPARISON STUDY: CT of the abdomen and pelvis February 05, 2020. TECHNIQUE: Axial images of the abdomen and pelvis were obtained without IV contrast. Images were reviewed in the axial, sagittal, and coronal planes. Automated exposure control was utilized for the study. A dose lowering technique was utilized adhering to the principles of ALARA. FINDINGS: Imaged portions of the lower chest demonstrate multifocal airspace opacities within the right middle and right lower lobe. A moderate sized hiatal hernia is present. No pneumatosis, free air or portal venous gas is present. There is no biliary ductal dilatation status post cholecystectomy. Evaluation of the abdomen and pelvis is suboptimal on this unenhanced exam. The liver, spleen, adrenal glands and pancreas are unremarkable. There is no right hydronephrosis. A 7.8 cm cystic focus within the superior aspect of the left renal sinus remains unchanged. Several left lower pole renal calculi are noted that measure up to 1.1 cm. There is moderate dilatation of the lower pole collecting system. These findings are unchanged. There is no evidence for a bowel obstruction. Postoperative findings within the sigmoid colon are noted. No hemoperitoneum or pneumoperitoneum is present. No acute lumbar spine or pelvic fractures identified. There is no lymphadenopathy. The appearance of the abdomen and p ronna is unchanged. IMPRESSION: 1. No acute traumatic findings within the abdomen or pelvis on unenhanced exam. 2. No change since previous exam of February 05, 2020, as described above. Left- sided nephrolithiasis with stable collecting system dilatation. No ureteral calculi. 3. No bowel obstruction. 4. Multifocal airspace opacities within the right middle and lower lobes consistent with an infectious process. ACT 112: Negative or not required by law. Electronically signed by: Abdirashid Motta M.D. 08/17/2020 3:02 PM Dictated: 08/17/20 1452 Transcribed: 08/17/20 145 XR wrist RT min 3V routine CLINICAL HISTORY: foosh COMPARISON: None FINDINGS: Alignment of the right wrist is anatomic. No acute fracture is identified. There is minimal radiocarpal joint space narrowing with osteophytosis. No osseous lesion is noted. IMPRESSION: No acute fracture or dislocation within the right wrist. ACT 112: Negative or not required by law. Electronically signed by: Abdirashid Motta M.D. 08/17/2020 3:20 PM Dictated: 08/17/20 1519 Transcribed: 08/17/201518 ECG Data Indication: + weakness Rate (beats per minute): 95 Rhythm: + normal sinus ECG Intervals/blocks: + Normal QRS, + Normal PA and + Normal QT-c ECG ST segments: + Normal ST segments MDM Narrative 1353: The patient was evaluated in room A4 A complete history and physical exam was performed. Cardiac monitoring: An order was placed for continuous cardiac monitoring. The monitor shows a rate of 90 with sinus rhythm 1633: Vital signs stable. Labs show a leukocytosis of 16.3. Creatinine is elevated 2.49, this is higher than the patient's baseline which is usually less than 2. Imaging shows bilateral pneumonia. Patient COVID-19 test was added. Patient be admitted to the [facility] service Dr. Ge. Patient treated with azithromycin and Rocephin for community-acquired pneumonia. Impression & Plan Pneumonia Discharge Plan Visit Data Chief Complaint: Fall Stated Complaint: fall/ headache ED Provider: Kurt Brock Discharge Problem: Pneumonia Patient Disposition: Admitted As Inpatient Discharge Instructions Interventions: ED Discharge Assessment Last Done: 08/17/20 18:33 Forms Stand Alone Forms: [employer] Prescriptions Prescriptions: No Action metoprolol succinate 50 mg tablet extended release 24 hr 75 mg PO BID RF: 0 albuterol sulfate 90 mcg/actuation Hfa Aerosol Inhaler 2 puff INHALATION Q4H PRN (Reason: Shortness Of Breath) RF: 0 magnesium oxide 400 mg magnesium Tablet 400 mg PO HS RF: 0 doxepin 100 mg capsule 100 mg PO HS RF: 0 ferrous sulfate 325 mg (65 mg iron) tablet 325 mg PO BID RF: 0 glipizide [Glucotrol XL] 2.5 mg tablet extended release 24hr 2.5 mg PO DAILY Qty: 30 RF: 3 Forteo 20 mcg/dose - 600 mcg/2.4 mL Pen Injector 20 mcg SUBCUT Q14D RF: 0 atorvastatin [Lipitor] 40 mg Tablet 40 mg PO QPM RF: 0 clopidogrel [Plavix] 75 mg Tablet 75 mg PO QPM RF: 0 pantoprazole [Protonix] 40 mg Tablet,Delayed Release (Dr/Ec) 40 mg PO BID RF: 0 gabapentin 300 mg Capsule 300 mg PO TID RF: 0 riboflavin (vitamin B2) 400 mg Tablet 400 mg PO QPM RF: 0 duloxetine 60 mg Capsule,Delayed Release(Dr/Ec) 60 mg PO QAM RF: 0 oxcarbazepine [Trileptal] 300 mg tablet 300 mg PO BID RF: 0 cholecalciferol (vitamin D3) [Vitamin D3] 2,000 unit Capsule 2,000 unit PO QAM RF: 0 lidocaine 5 % Adhesive Patch,Medicated 1 patch topical DAILY RF: 0 lisinopril 2.5 mg tablet 2.5 mg PO DAILY RF: 0 Saccharomyces boulardii [Florastor] 250 mg capsule 250 mg PO BID RF: 0 ondansetron 4 mg tablet,disintegrating 4 mg PO Q8H PRN (Reason: nausea and vomiting) RF: 0 Referrals Referrals: Lo Chand DO [Primary Care Provider] - Discharge Problem: Pneumonia Qualifiers: Pneumonia type: due to unspecified organism Laterality: bilateral Lung location: unspecified part of lung Qualified Code(s): J18.9 - Pneumonia, unspecified organism
--- NOTE | 2020-08-17 14:49 | CT Scan Report ---
CT OF THE CERVICAL SPINE WITHOUT CONTRAST CLINICAL HISTORY: recurrent falls COMPARISON STUDY: No previous studies for comparison. TECHNIQUE: Helical axial images of the cervical spine were obtained without IV contrast. Sagittal a nd coronal reconstructions were viewed. Automated exposure control was utilized for the study. A do se lowering technique was utilized adhering to the principles of ALARA. FINDINGS: This exam is mildly compromised by artifact. No acute cervical spine fracture is noted. The craniocervical junction is intact. Facet joints are intact. A sclerotic lesion within C5 is probably benign. There is no prevertebral edema. There is moderate multilevel facet arthrosis and mild to mod erate multilevel degenerative disc disease. Utilized portions the lung apices demonstrate airspace op acity within the right lung apex which favors an infectious process. IMPRESSION: 1. No acute cervical spine fracture or subluxation. Exam mildly compromised by motion artifact. 2. Mild airspace opacity within the right lung apex which favors an infectious process. ACT 112: Negative or not required by law. Electronically signed by: Abdirashid Motta M.D. 08/17/2020 2:48 PM
--- NOTE | 2020-08-17 14:50 | XRay Report ---
XR pelvis 1-2V routine CLINICAL HISTORY: recurrent falls COMPARISON: CT of the abdomen and pelvis February 05, 2020. FINDINGS: The sacroiliac joints and symphysis pubis are intact. No acute fracture within the pelvis or hips is identified. IMPRESSION: No acute fracture within the pelvis or hips. ACT 112: Negative or not required by law. Electronically signed by: Abdirashid Motta M.D. 08/17/2020 2:49 PM
--- NOTE | 2020-08-17 14:53 | XRay Report ---
XR chest 1V portable CLINICAL HISTORY: recurrent falls COMPARISON STUDY: Chest radiograph February 05, 2020. FINDINGS: Lung volumes are normal. A moderate sized hiatal hernia is noted. Cardiac size is normal. N o pneumothorax or pleural effusion is noted. Mild asymmetric right lung airspace opacity is noted. Th is favors an infectious process. Cholecystectomy clips are incidentally noted. IMPRESSION: Subtle asymmetric right lung airspace opacity which favors an infectious process. ACT 112: Negative or not required by law. Electronically signed by: Abdirashid Motta M.D. 08/17/2020 2:51 PM
--- NOTE | 2020-08-17 15:03 | CT Scan Report ---
CT OF THE ABDOMEN AND PELVIS WITHOUT CONTRAST CLINICAL HISTORY: recurrent falls COMPARISON STUDY: CT of the abdomen and pelvis February 05, 2020. TECHNIQUE: Axial images of the abdomen and pelvis were obtained without IV contrast. Images were revi ewed in the axial, sagittal, and coronal planes. Automated exposure control was utilized for the ascencion dy. A dose lowering technique was utilized adhering to the principles of ALARA. FINDINGS: Imaged portions of the lower chest demonstrate multifocal airspace opacities within the rig ht middle and right lower lobe. A moderate sized hiatal hernia is present. No pneumatosis, free air o r portal venous gas is present. There is no biliary ductal dilatation status post cholecystectomy. Ev aluation of the abdomen and pelvis is suboptimal on this unenhanced exam. The liver, spleen, adrenal glands and pancreas are unremarkable. There is no right hydronephrosis. A 7.8 cm cystic focus within the superior aspect of the left renal sinus remains unchanged. Several left lower pole renal calculi are noted that measure up to 1.1 cm. There is moderate dilatation of the lower pole collecting system . These findings are unchanged. There is no evidence for a bowel obstruction. Postoperative findings within the sigmoid colon are noted. No hemoperitoneum or pneumoperitoneum is present. No acute lumbar spine or pelvic fractures identified. There is no lymphadenopathy. The appearance of the abdomen and pelvis is unchanged. IMPRESSION: 1. No acute traumatic findings within the abdomen or pelvis on unenhanced exam. 2. No change since previous exam of February 05, 2020, as described above. Left-sided nephrolithiasis wi th stable collecting system dilatation. No ureteral calculi. 3. No bowel obstruction. 4. Multifocal airspace opacities within the right middle and lower lobes consistent with an infectiou s process. ACT 112: Negative or not required by law. Electronically signed by: Abdirashid Motta M.D. 08/17/2020 3:02 PM
[2020-08-17 15:13] LABS: Appearance Urine Turbid (Clear); Bilirubin Urine Negative (Negative); Blood Urine 2+ (Negative); Color Urine Yellow; Epithelial Cell Urine Auto >30 /lpf (0-5); Glucose Urine UA Negative (Negative); Ketones Urine Negative (Negative); Leukocyte Esterase Urine 3+ (Negative); Nitrite Urine Negative (Negative); Protein Urine 2+ (Negative); RBC Urine Automated 0-4 /hpf (0-4); Specific Gravity Urine 1.017 (1.000-1.030); Urobilinogen Urine Negative (Negative); WBC Urine Automated >30 /hpf (0-5); pH Urine 5.5 (4.5-7.5)
[2020-08-17 15:20] LABS: Basophils # (auto) 0.02 K/uL (0-0.2); Basophils % (auto) 0.1 %; Eosinophils # (auto) 0.21 K/uL (0-0.5); Eosinophils % (auto) 1.3 %; Hematocrit (blood only) 38.8 % (37-47); Hemoglobin 11.7 g/dL (12.0-16.0); Immature Granulocytes # (auto) 0.05 K/uL (0.00-0.02); Immature Granulocytes % (auto) 0.3 %; Lymphocytes % (auto) 10.4 %; Mean Corpuscular Hemoglobin 29.7 pg (25-34); Mean Corpuscular Hgb Conc 30.2 g/dL (32-36); Mean Corpuscular Volume 98.5 fL (80-100); Mean Platelet Volume 10.6 fL (7.4-10.4); Monocytes # (auto) 1.15 K/uL (0.11-0.59); Monocytes % (auto) 7.1 %; Neutrophils # (auto) 13.18 K/uL (1.4-6.5); Neutrophils % (auto) 80.8 %; Platelet Count 230 K/uL (130-400); RDW Coefficient of Variation 14.2 % (11.5-14.5); RDW Standard Deviation 51.2 fL (36.4-46.3); Red Blood Count 3.94 M/uL (4.2-5.4); White Blood Count 16.31 K/uL (4.8-10.8)
--- NOTE | 2020-08-17 15:22 | XRay Report ---
XR wrist RT min 3V routine CLINICAL HISTORY: foosh COMPARISON: None FINDINGS: Alignment of the right wrist is anatomic. No acute fracture is identified. There is minima l radiocarpal joint space narrowing with osteophytosis. No osseous lesion is noted. IMPRESSION: No acute fracture or dislocation within the right wrist. ACT 112: Negative or not required by law. Electronically signed by: Abdirashid Motta M.D. 08/17/2020 3:20 PM
[2020-08-17 15:30] LABS: Partial Thromboplastin Time 27.9 Seconds (21.0-31.0); Prothrombin Time 10.5 Seconds (9.0-12.0)
[2020-08-17 15:35] LABS: Bacteria Urine Automated 1+ (Negative)
[2020-08-17 15:42] LABS: BUN Creatinine Ratio 14.1 (10-20); Blood Urea Nitrogen 35 mg/dl (7-18); Calcium 9.1 mg/dl (8.5-10.1); Carbon Dioxide 21 mmol/L (21-32); Chloride 115 mmol/L (98-107); Creatinine Clr Calc Pharmacy 23.7 ml/min; Est GFR (African American) 22.6; Est GFR (Non-African American) 19.5; Glucose 118 mg/dl (70-99); Magnesium 2.1 mg/dl (1.8-2.4); Potassium 5.1 mmol/L (3.5-5.1); Sodium 142 mmol/L (136-145)
[2020-08-17 15:47] LABS: Troponin I < 0.015 ng/ml (0-0.045)
[2020-08-17] MEDS ORDERED: cefTRIAXone SODIUM 1,000 MG/50 ML BAG IV STA (16:15)
[2020-08-17] MEDS ORDERED: AZITHROMYCIN 250 MG TAB PO ONE (16:15)
[2020-08-17] MEDS ORDERED: SODIUM CHLORIDE 0.9% 1000ML 1,000 ML IV ONE (16:34)
--- NOTE | 2020-08-17 16:51 | History & Physical Report ---
Date of Service August 17, 2020 Assessment & Plan (1) Recurrent falls: (2) Weakness: Patient with recent recurrent falls at home. She has been feeling lightheaded/dizzy. She admits that she has not been eating or drinking well. She feels that her legs want to give out on her very easily. Feel that her lightheadedness/dizziness could be multifactorial given probable infection, multiple PIANO MOVER medications, dehydration with acute renal failure, and overall complicated medical history. Admit to Med/Surg with Tele. Continue to monitor vitals closely. BP slightly elevated on admission, but improved at this time. PT/OT Fall precautions. (3) Pneumonia: (4) COPD (chronic obstructive pulmonary disease): (5) Obesity hypoventilation syndrome: (6) Asthma: Patient with pneumonia on imaging. She does not have cough or SOB currently. She is saturating well on room air. Patient does not use a CPAP at home despite history of CALI and obesity hypoventilation syndrome. O2 PRN to maintain SaO2 >90% Patient given IV Ceftriaxone and Azithromycin in the ED. Continue these. Repeat CBC, BMP in AM. Blood cultures ordered. Urine culture pending. (7) Acute renal failure superimposed on stage 3 chronic kidney disease: (8) HTN (hypertension): (9) Renal calculi: Patient's creatinine up to 2.4 from baseline of 1.4. Will need to closely monitor. Seems likely to be secondary to poor PO intake. Continue NSS 100 cc/hr Repeat BMP in AM Encourage PO intake. HOLD lisinopril for now. Decrease pantoprazole to once daily dosing for now Consider Nephrology consultation pending improvement in renal fxn Renal calculi and collecting system edema appears chronic on imaging- unlikely to be contributing to current ARF. (10) DM type 2 (diabetes mellitus, type 2): Insulin sliding scale. (11) DVT prophylaxis: Heparin Q8h History of Present Illness Chief Complaint: Weakness, pneumonia Primary Care Provider: Lo Chand DO Patient is a 64 yo female with an extensive PMHx including DM 2, dyslipidemia, chronic respiratory failure with hypoxia, CALI, asthma/COPD, bronchiectasis, HTN, CKD III who presented to the ED with worsening weakness and recurrent falls. The patient complains of increased lightheadedness/presyncopal type episodes at home recently. She has had multiple falls over the past 1 month or so. She fell this morning when she was trying to get back to her chair. She did not hit her head and did not lose consciousness. She is complaining of pain from the fall. She notes that she has not been eating or drinking well at home. She has been feeling very tired and weak. Her legs don't want to hold her up. She has not had any urinary symptoms. She has diarrhea, but this is typical for her. Nothing out of her norm. She has had no fevers that she knows of. COVID negative here in the ED. She was previously on O2 at home but is no longer on that. She has CALI and Obesity hypoventilation syndrome, but she does not like CPAP so she does not use one. Since presentation, patient was found to have slightly elevated WBC count with left shift and possible pneumonia on imaging. Head CT was negative for intracranial abnormalities. Wrist and Pelvis X-Rays were negative. C-Spine CT showed no fracture but did note mild airspace opacity in the right lung apex, favoring infectious process. Chest X-Ray showed right lung airspace opacity favoring infection, and her Abd/Pelvis CT also showed multifocal airspace opacity in the RML and RLL also appearing infectious. Urinalysis showed >3 WBC, 3+ Leuks, 2+ blood, and 2+ protein. Urine and blood cultures pending. Creatinine acutely elevated to 2.49 from baseline around 1.3-1.5 outpatient. She was given IV Ceftriaxone, Azithromycin and NSS in the ED. Allergies Allergy/AdvReac Type Severity Reaction Status Date / Time salicylates Allergy Severe SHORTNESS Verified 08/17/20 14:29 OF BREATH Iodinated Contrast Media Allergy Intermediate EYES Verified 08/17/20 14:29 SWELLING/Hives amoxicillin [From Augmentin] Allergy Mild Rash Verified 08/17/20 14:29 aspirin Allergy Mild FACIAL Verified 08/17/20 14:29 SWELLING clavulanic acid Allergy Mild Rash Verified 08/17/20 14:29 [From Augmentin] hydromorphone Allergy Mild RASH/ITCHIN Verified 08/17/20 14:29 G fentanyl Allergy itching/felt Verified 08/17/20 14:29 like throat closing meperidine AdvReac Intermediate ITCH Verified 08/17/20 14:29 morphine AdvReac Intermediate ITCH Verified 08/17/20 14:29 tramadol AdvReac Mild itch Verified 08/17/20 14:29 Home Medications Home Medications Medication Instructions Recorded Confirmed Type atorvastatin [Lipitor] 40 mg PO QPM 07/12/18 08/17/20 History clopidogrel [Plavix] 75 mg PO QPM 07/12/18 08/17/20 History gabapentin 300 mg PO TID 07/12/18 08/17/20 History pantoprazole [Protonix] 40 mg PO BID 07/12/18 08/17/20 History riboflavin (vitamin B2) 400 mg PO QPM 07/12/18 08/17/20 History duloxetine 60 mg PO QAM 10/16/18 08/17/20 History cholecalciferol (vitamin D3) 2,000 unit PO QAM 05/16/19 08/17/20 History [Vitamin D3] oxcarbazepine [Trileptal] 300 mg PO BID 05/16/19 08/17/20 History albuterol sulfate 2 puff INHALATION Q4H PRN 07/21/19 08/17/20 History metoprolol succinate 75 mg PO BID 07/21/19 08/17/20 History magnesium oxide 400 mg PO HS 10/05/19 08/17/20 History doxepin 100 mg PO HS 11/30/19 08/17/20 History ferrous sulfate 325 mg PO BID 11/30/19 08/17/20 History glipizide [Glucotrol XL] 2.5 mg PO DAILY #30 tab 02/12/20 08/17/20 Rx Forteo 20 mcg SUBCUT Q14D 05/06/20 08/17/20 History Saccharomyces boulardii [Florastor] 250 mg PO BID 08/17/20 08/17/20 History lidocaine 1 patch TOPICAL DAILY 08/17/20 08/17/20 History lisinopril 2.5 mg PO DAILY 08/17/20 08/17/20 History ondansetron 4 mg PO Q8H PRN 08/17/20 08/17/20 History Past Med/Surg History Medical History (Updated 08/17/20 @ 18:57 by Kurt Brock) Anxiety Asthma CHF (congestive heart failure) Chronic back pain Chronic headaches Chronic renal insufficiency stage 3, following with [facility] nephrology ([place]) COPD (chronic obstructive pulmonary disease) Deep vein thrombosis LLE - COULD NOT RECALL DATE - REPORTS SHE WAS TREATED AT [facility] W/ BLOOD THINNERS Degenerative disc disease Depression Diabetes mellitus, type 2 GERD (gastroesophageal reflux disease) Gram negative septicemia History of colon cancer 2012 S/P BOWEL RESECTION. History of esophageal dilatation Hyperlipidemia Hypertension Kidney stones Morbid obesity with BMI of 40.0-44.9, adult Myocardial Infarction 03/2018--> [facility] -- CARDIAC CATH --> NO STENTS/ANGIOPLASTY PER PT REPORT -- POOR HISTORIAN? REPORTS SHE IS ON PLAVIX FOR HEART - DENIES STENTS - DENIES ARRHYTHMIA - FOLLOWS W/ DR. TORRES On anticoagulant therapy plavix daily On home oxygen therapy 2L N/C at all times - states MD stopped this, patient states she is no longer using Osteoarthritis Poor historian Pyelonephritis Recurrent falls Seizure pt states "i think i had them a long time ago". no other information. Sepsis Surgical History H/O hand surgery RIGHT History of appendectomy History of bilateral cataract extraction History of blepharoplasty History of bowel resection d/t colon cancer History of cardiac cath 03/2018 - [place] - DENIES STENTS/ANGIOPLASTY - [facility] - FOLLOWS W/ DR. TORRES History of colonoscopy History of cystoscopy History of esophagogastroduodenoscopy (EGD) History of kidney surgery at age 9 yrs "something was wrong and had to fix it" History of lithotripsy History of tooth extraction History of total abdominal hysterectomy and bilateral salpingo-oophorectomy Hx of cholecystectomy Family History Other No pertinent family history in first degree relatives Social History Smoking Status: Never smoker Second Hand Exposure: No; Hx Alcohol Use: No Hx Substance Use: No Preferred Language: Samoan Communication Ability: Effective Laser Operator Required: No Beliefs That Will Affect Care: None marital status: Current Living Situation: Alone Current Living Situation Comment: alone in [address] in [place] Other Information That Helps Us Care for You: No Feels Safe at Home: Yes Safety Concerns: Feels Safe At This Time Assistive Devices: Glasses Review of Systems Review of Systems: All systems reviewed & are unremarkable except as noted in HPI & below Physical Exam Constitutional: + ill appearing, + morbidly obese, cooperative and + lethargic; no acute distress and + not appropriately hydrated Eyes: PERRL, conjunctivae normal, anicteric sclerae ENMT: external ear and nose normal, oropharynx normal Neck: trachea midline, no thyromegaly + thick neck Respiratory: normal respiratory effort; no respiratory distress, no labored breathing, does not use accessory muscles and no cough Slightly coarse breath sounds in the right lung mcclellan. No distinct rales or rhonchi. Cardiovascular: RRR, no murmur, no edema Gastrointestinal (Abdomen): Inspection/Auscultation: abdomen normal to in spection and normal bowel sounds; abdomen not distended Percussion/Palpation: + abdomen tender (mild generalized tenderness with suprapubic tenderness.) and abdomen soft; no guarding and abdomen not rigid Musculoskeletal: Head/Neck/Chest: normocephalic and head atraumatic No pitting edema on exam. Skin: no rashes, warm and dry Neurologic: PERRL, EOMI, accommodation nl, no face palsy, no dysarthria CN's II-XI intact bilaterally; not confused Results & Data Results & Data ([facility]) Vital Signs (Past 12 Hours) Vital Signs Temp Pulse Resp BP Pulse Ox 08/17/20 13:39 37.1 C 100 H 18 143/85 H 95 Laboratory Results Laboratory Results - last 24 hr 08/17/20 08/17/20 08/17/20 14:50 15:08 15:08 WBC 16.31 H RBC 3.94 L Hgb 11.7 L Hct 38.8 MCV 98.5 MCH 29.7 MCHC 30.2 L RDW Std Deviation 51.2 H RDW Coeff of Teresa 14.2 Plt Count 230 MPV 10.6 H Immature Gran % (Auto) 0.3 Neut % (Auto) 80.8 Lymph % (Auto) 10.4 Andrews % (Auto) 7.1 Eos % (Auto) 1.3 Baso % (Auto) 0.1 Neut # (Auto) 13.18 H Lymph # (Auto) 1.70 Andrews # (Auto) 1.15 H Eos # (Auto) 0.21 Baso # (Auto) 0.02 Immature Gran # (Auto) 0.05 H PT 10.5 INR 1.0 APTT 27.9 PTT Ratio 1.0 Sodium Potassium Chloride Carbon Dioxide Anion Gap BUN Creatinine Est Cr Clr Drug Dosing Est GFR ( Amer) Est GFR (Non-Af Amer) BUN/Creatinine Ratio Glucose Calcium Magnesium Troponin I Urine Color Yellow Urine Appearance Turbid A Urine pH 5.5 Ur Specific [place] 1.017 Urine Protein 2+ H Urine Glucose (UA) Negative Urine Ketones Negative Urine Blood 2+ H Urine Nitrite Negative Urine Bilirubin Negative Urine Urobilinogen Negative Ur Leukocyte Esterase 3+ H Urine WBC (Auto) >30 H Urine RBC (Auto) 0-4 U Hyaline Cast (Auto) 1-5 U Epithel Cells (Auto) >30 H Urine Bacteria (Auto) 1+ H Urine Yeast Not Reportable COVID-19 Eval Order COVID-19 PCR 08/17/20 08/17/20 08/17/20 15:08 16:38 16:38 WBC RBC Hgb Hct MCV MCH MCHC RDW Std Deviation RDW Coeff of Teresa Plt Count MPV Immature Gran % (Auto) Neut % (Auto) Lymph % (Auto) Andrews % (Auto) Eos % (Auto) Baso % (Auto) Neut # (Auto) Lymph # (Auto) Andrews # (Auto) Eos # (Auto) Baso # (Auto) Immature Gran # (Auto) PT INR APTT PTT Ratio Sodium 142 Potassium 5.1 Chloride 115 H Carbon Dioxide 21 Anion Gap 6.0 BUN 35 H Creatinine 2.49 H Est Cr Clr Drug Dosing 23.7 Est GFR ( Amer) 22.6 Est GFR (Non-Af Amer) 19.5 BUN/Creatinine Ratio 14.1 Glucose 118 H Calcium 9.1 Magnesium 2.1 Troponin I < 0.015 Urine Color Urine Appearance Urine pH Ur Specific [place] Urine Protein Urine Glucose (UA) Urine Ketones Urine Blood Urine Nitrite Urine Bilirubin Urine Urobilinogen Ur Leukocyte Esterase Urine WBC (Auto) Urine RBC (Auto) U Hyaline Cast (Auto) U Epithel Cells (Auto) Urine Bacteria (Auto) Urine Yeast COVID-19 Eval Order Covid19 Done at [facility] COVID-19 PCR Pending Diagnostic Findings Abd/Pelvis CT: IMPRESSION: 1. No acute traumatic findings within the abdomen or pelvis on unenhanced exam. 2. No change since previous exam of February 05, 2020, as described above. Left- sided nephrolithiasis with stable collecting system dilatation. No ureteral calculi. 3. No bowel obstruction. 4. Multifocal airspace opacities within the right middle and lower lobes consistent with an infectious process. Chest X-Ray: IMPRESSION: Subtle asymmetric right lung airspace opacity which favors an infectious process. Cervical Spine CT: IMPRESSION: 1. No acute cervical spine fracture or subluxation. Exam mildly compromised by motion artifact. 2. Mild airspace opacity within the right lung apex which favors an infectious process. Head CT: IMPRESSION 1. No acute intracranial findings. 2. No calvarial fracture. Supervising Physician Co-Signing Physician Notes Pt was seen and examined. Agreed with Yoselin HADDAD exam, assessment and plan. 64 yo female with PMH DM 2, dyslipidemia, chronic respiratory failure with hypo handy, CALI, asthma/COPD, bronchiectasis, HTN, CKD III presented to the ED with worsening weakness and recurrent falls. Pt said that for the last few weeks she has been having recurrent falls. She said that she has been having alot of lightheadedness. She said that whenever she stands she feels very dizzy. Pt said that she has history of dizziness. CT head showed no acute intracranial findings. She had multiple images done that are negative for any fracture. CT showed multifocal airspace opacities within the right middle and lower lobes consistent with an infectious process. Elevated WBC 16K, Creatinine 2.4 and COVID 19 negative. Received Rocephin Azithromycin in the ER, will continue abx. Blood and urine cx clollected in the ER. Continue IVF. Will monitor BMP. Will avoid nephrotoxic agents and hold lisinopril. PT/OT eval. Fall precaution. Continue monitor closely. MD Christiane (1) Acute renal failure superimposed on stage 3 chronic kidney disease Acute renal failure type: with acute tubular necrosis Qualified Code(s): N17.0 - Acute kidney failure with tubular necrosis; N18.3 - Chronic kidney disease, stage 3 (moderate) (2) Pneumonia Laterality: bilateral Lung location: lower lobe of lung Pneumonia type: due to unspecified organism Qualified Code(s): J18.1 - Lobar pneumonia, unspecified organism
[2020-08-17] MEDS ORDERED: GLUCOSE 40% GEL 15 GM TUBE PO PRN (20:07)
[2020-08-17] MEDS ORDERED: CARBOHYDRATES FOR HYPOGLYCEMIA PO PRN (20:07)
[2020-08-17] MEDS ORDERED: GLUCAGON FOR INJ 1 MG VIAL SQ PRN (20:07)
[2020-08-17] MEDS ORDERED: GLUCOSE 10 TABS/TUBE PO PRN (20:07)
[2020-08-17] MEDS ORDERED: DEXTROSE 50% 50 ML SYRINGE IV PRN (20:07)
[2020-08-17 20:43] LABS: Cdiff Antigen Positive; Cdiff Toxin A+B Negative Cdiff Toxin (Negative)
[2020-08-17] MEDS ORDERED: NON-FORMULARY MEDICATION (Riboflavin (Vitamin B2) 400 mg Tablet) PO SCH (21:00)
[2020-08-17] MEDS: SACCHAROMYCES BOULARDII 250 MG CAP PO SCH (21:49)
[2020-08-17] MEDS: FERROUS SULFATE 325 MG TAB PO SCH (21:49)
[2020-08-17] MEDS: ATORVASTATIN 40 MG TAB PO SCH (21:50)
[2020-08-17] MEDS: CLOPIDOGREL BISULFATE 75 MG TAB PO SCH (21:50)
[2020-08-17] MEDS: GABAPENTIN 300 MG CAP PO SCH (21:50)
[2020-08-17] MEDS: MAGNESIUM OXIDE 400 MG TAB PO SCH (21:50)
[2020-08-17] MEDS: METOPROLOL SUCC 25MG EXT REL TAB PO SCH (21:51)
[2020-08-17] MEDS: DOXEPIN HCL 50 MG CAPSULE PO SCH (21:51)
[2020-08-17] MEDS: HEPARIN SOD 5,000 UNIT/0.5 ML VIAL SQ SCH (21:52)
[2020-08-17] MEDS: OXcarbazepine 150 MG TABLET PO SCH (21:52)
[2020-08-17] MEDS: INSULIN ASPART 100 UNITS/ML 3 ML PEN SC SCH (21:52)
[2020-08-17] MEDS: INSULIN GLARGINE SOLOSTAR 100 UNITS/ML 3 ML PEN SC SCH (21:53)
[2020-08-18] MEDS: HEPARIN SOD 5,000 UNIT/0.5 ML VIAL SQ SCH ×3 (05:59→20:56)
[2020-08-18 06:11] LABS: Hematocrit (blood only) 38.1 % (37-47); Hemoglobin 11.4 g/dL (12.0-16.0); Mean Corpuscular Hemoglobin 29.7 pg (25-34); Mean Corpuscular Hgb Conc 29.9 g/dL (32-36); Mean Corpuscular Volume 99.2 fL (80-100); Mean Platelet Volume 10.5 fL (7.4-10.4); Platelet Count 252 K/uL (130-400); RDW Coefficient of Variation 14.4 % (11.5-14.5); RDW Standard Deviation 51.6 fL (36.4-46.3); Red Blood Count 3.84 M/uL (4.2-5.4); White Blood Count 9.43 K/uL (4.8-10.8)
[2020-08-18 06:33] LABS: BUN Creatinine Ratio 14.5 (10-20); Calcium 8.8 mg/dl (8.5-10.1); Creatinine Clr Calc Pharmacy 27.1 ml/min; Est GFR (African American) 28.2; Est GFR (Non-African American) 24.3; Potassium 4.6 mmol/L (3.5-5.1)
[2020-08-18] MEDS: PANTOprazole 40 MG TAB PO SCH (08:07)
[2020-08-18] MEDS: DULoxetine HCL 60 MG CAP PO SCH (08:07)
[2020-08-18] MEDS: CHOLECALCIFEROL 1,000 UNITS 25 MCG TAB PO SCH (08:08)
[2020-08-18] MEDS: GABAPENTIN 300 MG CAP PO SCH ×3 (08:08→20:54)
[2020-08-18] MEDS: INSULIN GLARGINE SOLOSTAR 100 UNITS/ML 3 ML PEN SC SCH ×2 (08:08→20:53)
[2020-08-18] MEDS: METOPROLOL SUCC 25MG EXT REL TAB PO SCH ×2 (08:08→20:55)
[2020-08-18] MEDS: FERROUS SULFATE 325 MG TAB PO SCH ×2 (08:08→20:52)
[2020-08-18] MEDS: SACCHAROMYCES BOULARDII 250 MG CAP PO SCH ×2 (08:08→20:52)
[2020-08-18] MEDS: OXcarbazepine 150 MG TABLET PO SCH ×2 (08:08→20:55)
[2020-08-18] MEDS: INSULIN ASPART 100 UNITS/ML 3 ML PEN SC SCH ×4 (08:17→20:56)
--- NOTE | 2020-08-18 10:07 | Electrocardiogram Report ---
Test Reason : Blood Pressure : / mmHG Vent. Rate : 095 BPM Atrial Rate : 095 BPM P-R Int : 168 ms QRS Dur : 062 ms QT Int : 304 ms P-R-T Axes : 002 -05 052 degrees QTc Int : 382 ms Normal sinus rhythm Low voltage QRS Borderline ECG When compared with ECG of 09-FEB-2020 11:51, No significant change was found Confirmed by Joshua Hobson ([id number]) on 08/18/2020 10:07:14 AM Referred By: REFERRED SELF Confirmed By:Joshua Hobson
--- NOTE | 2020-08-18 10:18 | Hospitalist Progress Note ---
Date of Service August 18, 2020 Assessment & Plan (1) Recurrent falls: (2) Weakness: Patient with recent recurrent falls at home. She has been feeling lightheaded/dizzy. She admits that she has not been eating or drinking well. She feels that her legs want to give out on her very easily. Feel that her lightheadedness/dizziness could be multifactorial given probable infection, multiple [employer] medications, dehydration with acute renal failure, and overall complicated medical history. Admit to Med/Surg with Tele. Continue to monitor vitals closely. BP slightly elevated on admission,now pt is mostly hypotensive. PT/OT Fall precautions. (3) Pneumonia: (4) COPD (chronic obstructive pulmonary disease): (5) Obesity hypoventilation syndrome: (6) Asthma: Patient with pneumonia on imaging. She has only occasional cough or SOB currently She is saturating well on room air. Patient does not use a CPAP at home despite history of CALI and obesity hypoventilation syndrome. O2 PRN to maintain SaO2 >90% Patient given IV Ceftriaxone and Azithromycin in the ED. Continue these. monitor CBC, BMP Blood cultures ordered. Urine culture repeated -pending. (7) Acute renal failure superimposed on stage 3 chronic kidney disease: (8) HTN (hypertension): (9) Renal calculi: Patient's creatinine up to 2.4 from baseline of 1.4. Will need to closely monitor. Seems likely to be secondary to poor PO intake. IVF Monitor BMP Encourage PO intake. HOLD lisinopril for now. Decrease pantoprazole to once daily dosing for now Consider Nephrology consultation pending improvement in renal fxn Renal calculi and collecting system edema appears chronic on imaging- unlikely to be contributing to current ARF. Cr improved (10) DM type 2 (diabetes mellitus, type 2): Insulin sliding scale. (11) DVT prophylaxis: Heparin Q8h Admission and Anticipated Discharge Date Admission Date: August 17, 2020 Subjective Patient is lying in bed, in no acute distress. No fevers or chills, she does have cough with deep inspiration. Feels very weak. Review of Systems Review of Systems: All systems reviewed & are unremarkable except as noted in HPI & below Constitutional: + fatigue and + weakness (generalized); no fever and no chills Respiratory: no cough and no dyspnea Cardiovascular: no chest pain and no palpitations Gastrointestinal: no abdominal pain, no nausea and no vomiting Physical Exam Physical Exam: Constitutional: + ill appearing, + morbidly obese,no acute distress and + not appropriately hydrated Eyes: PERRL, EOMI, conjunctivae normal, anicteric sclerae ENMT: external ear and nose normal, oropharynx normal Neck: trachea midline, no thyromegaly + thick neck Respiratory: normal respiratory effort; no respiratory distress, no labored breathing, does not use accessory muscles and no cough Mild rhonchi on the right Cardiovascular: RRR, no murmur, no edema Gastrointestinal (Abdomen): Inspection/Auscultation: abdomen normal to inspection and normal bowel sounds; abdomen not distended Percussion/Palpation: + abdomen nontender, abdomen soft; no guarding and abdomen not rigid Musculoskeletal: Head/Neck/Chest: normocephalic and head atraumatic No pitting edema on exam. Moves extremities. Skin: no rashes, warm and dry Neuro/Psych: alert and oriented x3, answering questions appropriately, PERRL, EOMI, no face palsy, no dysarthria, moves extremities Results & Data Results & Data ([facility]) Vital Signs (Past 12 Hours) Vital Signs Temp Pulse Pulse Resp BP Pulse Ox 08/18/20 08:07 71 109/69 08/18/20 07:52 36.9 C 71 18 84/57 L 96 08/18/20 07:33 73 08/18/20 03:45 36.8 C 62 18 102/61 96 08/18/20 01:21 81 08/17/20 23:17 36.6 C 76 18 95/58 L 96 Laboratory Results 08/18/20 08/18/20 08/18/20 Range/Units 07:46 05:48 05:48 WBC 9.43 (4.8-10.8) K/uL RBC 3.84 L (4.2-5.4) M/uL Hgb 11.4 L (12.0-16.0) g/dL Hct 38.1 (37-47) % MCV 99.2 (80-100) fL MCH 29.7 (25-34) pg MCHC 29.9 L (32-36) g/dL RDW Std Deviation 51.6 H (36.4-46.3) fL RDW Coeff of Teresa 14.4 (11.5-14.5) % Plt Count 252 (130-400) K/uL MPV 10.5 H (7.4-10.4) fL Immature Gran % (Auto) % Neut % (Auto) % Lymph % (Auto) % [place] % (Auto) % Eos % (Auto) % Baso % (Auto) % Neut # (Auto) (1.4-6.5) K/uL Lymph # (Auto) (1.2-3.4) K/uL [place] # (Auto) (0.11-0.59) K/uL Eos # (Auto) (0-0.5) K/uL Baso # (Auto) (0-0.2) K/uL Immature Gran # (Auto) (0.00-0.02) K/uL PT (9.0-12.0) Seconds INR (0.9-1.1) APTT (21.0-31.0) Seconds PTT Ratio Sodium 142 (136-145) mmol/L Potassium 4.6 (3.5-5.1) mmol/L Chloride 116 H (98-107) mmol/L Carbon Dioxide 21 (21-32) mmol/L Anion Gap 5.0 (3-11) BUN 30 H (7-18) mg/dl Creatinine 2.07 H D (0.6-1.2) mg/dl Est Cr Clr Drug Dosing 27.1 ml/min Est GFR ( Amer) 28.2 Est GFR (Non-Af Amer) 24.3 BUN/Creatinine Ratio 14.5 (10-20) Glucose 104 H (70-99) mg/dl POC Glucose 95 (70-99) mg/dl Calcium 8.8 (8.5-10.1) mg/dl Magnesium (1.8-2.4) mg/dl Troponin I (0-0.045) ng/ml Urine Color Urine Appearance (Clear) Urine pH (4.5-7.5) Ur Specific [place] (1.000-1.030) Urine Protein (Negative) Urine Glucose (UA) (Negative) Urine Ketones (Negative) Urine Blood (Negative) Urine Nitrite (Negative) Urine Bilirubin (Negative) Urine Urobilinogen (Negative) Ur Leukocyte Esterase (Negative) Urine WBC (Auto) (0-5) /hpf Urine RBC (Auto) (0-4) /hpf U Hyaline Cast (Auto) (0-5) /lpf U Epithel Cells (Auto) (0-5) /lpf Urine Bacteria (Auto) (Negative) Urine Yeast Stl C. diff Tox B Gene (Neg) Stl C.difficile Tox A&B (Negative) COVID-19 Eval Order COVID-19 PCR (Negative) 08/17/20 08/17/20 08/17/20 Range/Units 20:51 17:15 16:38 WBC (4.8-10.8) K/uL RBC (4.2-5.4) M/uL Hgb (12.0-16.0) g/dL Hct (37-47) % MCV (80-100) fL MCH (25-34) pg MCHC (32-36) g/dL RDW Std Deviation (36.4-46.3) fL RDW Coeff of Teresa (11.5-14.5) % Plt Count (130-400) K/uL MPV (7.4-10.4) fL Immature Gran % (Auto) % Neut % (Auto) % Lymph % (Auto) % [place] % (Auto) % Eos % (Auto) % Baso % (Auto) % Neut # (Auto) (1.4-6.5) K/uL Lymph # (Auto) (1.2-3.4) K/uL [place] # (Auto) (0.11-0.59) K/uL Eos # (Auto) (0-0.5) K/uL Baso # (Auto) (0-0.2) K/uL Immature Gran # (Auto) (0.00-0.02) K/uL PT (9.0-12.0) Seconds INR (0.9-1.1) APTT (21.0-31.0) Seconds PTT Ratio Sodium (136-145) mmol/L Potassium (3.5-5.1) mmol/L Chloride (98-107) mmol/L Carbon Dioxide (21-32) mmol/L Anion Gap (3-11) BUN (7-18) mg/dl Creatinine (0.6-1.2) mg/dl Est Cr Clr Drug Dosing ml/min Est GFR ( Amer) Est GFR (Non-Af Amer) BUN/Creatinine Ratio (10-20) Glucose (70-99) mg/dl POC Glucose 105 H (70-99) mg/dl Calcium (8.5-10.1) mg/dl Magnesium (1.8-2.4) mg/dl Troponin I (0-0.045) ng/ml Urine Color Urine Appearance (Clear) Urine pH (4.5-7.5) Ur Specific [place] (1.000-1.030) Urine Protein (Negative) Urine Glucose (UA) (Negative) Urine Ketones (Negative) Urine Blood (Negative) Urine Nitrite (Negative) Urine Bilirubin (Negative) Urine Urobilinogen (Negative) Ur Leukocyte Esterase (Negative) Urine WBC (Auto) (0-5) /hpf Urine RBC (Auto) (0-4) /hpf U Hyaline Cast (Auto) (0-5) /lpf U Epithel Cells (Auto) (0-5) /lpf Urine Bacteria (Auto) (Negative) Urine Yeast Stl C. diff Tox B Gene Positive Cdiff Gene H (Neg) Stl C.difficile Tox A&B Negative Cdiff Toxin (Negative) COVID-19 Eval Order COVID-19 PCR NEGATIVE (Negative) 08/17/20 08/17/20 08/17/20 Range/Units 16:38 15:08 15:08 WBC (4.8-10.8) K/uL RBC (4.2-5.4) M/uL Hgb (12.0-16.0) g/dL Hct (37-47) % MCV (80-100) fL MCH (25-34) pg MCHC (32-36) g/dL RDW Std Deviation (36.4-46.3) fL RDW Coeff of Teresa (11.5-14.5) % Plt Count (130-400) K/uL MPV (7.4-10.4) fL Immature Gran % (Auto) % Neut % (Auto) % Lymph % (Auto) % [place] % (Auto) % Eos % (Auto) % Baso % (Auto) % Neut # (Auto) (1.4-6.5) K/uL Lymph # (Auto) (1.2-3.4) K/uL [place] # (Auto) (0.11-0.59) K/uL Eos # (Auto) (0-0.5) K/uL Baso # (Auto) (0-0.2) K/uL Immature Gran # (Auto) (0.00-0.02) K/uL PT 10.5 (9.0-12.0) Seconds INR 1.0 (0.9-1.1) APTT 27.9 (21.0-31.0) Seconds PTT Ratio 1.0 Sodium 142 (136-145) mmol/L Potassium 5.1 (3.5-5.1) mmol/L Chloride 115 H (98-107) mmol/L Carbon Dioxide 21 (21-32) mmol/L Anion Gap 6.0 (3-11) BUN 35 H (7-18) mg/dl Creatinine 2.49 H (0.6-1.2) mg/dl Est Cr Clr Drug Dosing 23.7 ml/min Est GFR ( Amer) 22.6 Est GFR (Non-Af Amer) 19.5 BUN/Creatinine Ratio 14.1 (10-20) Glucose 118 H (70-99) mg/dl POC Glucose (70-99) mg/dl Calcium 9.1 (8.5-10.1) mg/dl Magnesium 2.1 (1.8-2.4) mg/dl Troponin I < 0.015 (0-0.045) ng/ml Urine Color Urine Appearance (Clear) Urine pH (4.5-7.5) Ur Specific [place] (1.000-1.030) Urine Protein (Negative) Urine Glucose (UA) (Negative) Urine Ketones (Negative) Urine Blood (Negative) Urine Nitrite (Negative) Urine Bilirubin (Negative) Urine Urobilinogen (Negative) Ur Leukocyte Esterase (Negative) Urine WBC (Auto) (0-5) /hpf Urine RBC (Auto) (0-4) /hpf U Hyaline Cast (Auto) (0-5) /lpf U Epithel Cells (Auto) (0-5) /lpf Urine Bacteria (Auto) (Negative) Urine Yeast Stl C. diff Tox B Gene (Neg) Stl C.difficile Tox A&B (Negative) COVID-19 Eval Order Covid19 Done at [facility] COVID-19 PCR (Negative) 08/17/20 08/17/20 Range/Units 15:08 14:50 WBC 16.31 H (4.8-10.8) K/uL RBC 3.94 L (4.2-5.4) M/uL Hgb 11.7 L (12.0-16.0) g/dL Hct 38.8 (37-47) % MCV 98.5 (80-100) fL MCH 29.7 (25-34) pg MCHC 30.2 L (32-36) g/dL RDW Std Deviation 51.2 H (36.4-46.3) fL RDW Coeff of Teresa 14.2 (11.5-14.5) % Plt Count 230 (130-400) K/uL MPV 10.6 H (7.4-10.4) fL Immature Gran % (Auto) 0.3 % Neut % (Auto) 80.8 % Lymph % (Auto) 10.4 % [place] % (Auto) 7.1 % Eos % (Auto) 1.3 % Baso % (Auto) 0.1 % Neut # (Auto) 13.18 H (1.4-6.5) K/uL Lymph # (Auto) 1.70 (1.2-3.4) K/uL [place] # (Auto) 1.15 H (0.11-0.59) K/uL Eos # (Auto) 0.21 (0-0.5) K/uL Baso # (Auto) 0.02 (0-0.2) K/uL Immature Gran # (Auto) 0.05 H (0.00-0.02) K/uL PT (9.0-12.0) Seconds INR (0.9-1.1) APTT (21.0-31.0) Seconds PTT Ratio Sodium (136-145) mmol/L Potassium (3.5-5.1) mmol/L Chloride (98-107) mmol/L Carbon Dioxide (21-32) mmol/L Anion Gap (3-11) BUN (7-18) mg/dl Creatinine (0.6-1.2) mg/dl Est Cr Clr Drug Dosing ml/min Est GFR ( Amer) Est GFR (Non-Af Amer) BUN/Creatinine Ratio (10-20) Glucose (70-99) mg/dl POC Glucose (70-99) mg/dl Calcium (8.5-10.1) mg/dl Magnesium (1.8-2.4) mg/dl Troponin I (0-0.045) ng/ml Urine Color Yellow Urine Appearance Turbid A (Clear) Urine pH 5.5 (4.5-7.5) Ur Specific [place] 1.017 (1.000-1.030) Urine Protein 2+ H (Negative) Urine Glucose (UA) Negative (Negative) Urine Ketones Negative (Negative) Urine Blood 2+ H (Negative) Urine Nitrite Negative (Negative) Urine Bilirubin Negative (Negative) Urine Urobilinogen Negative (Negative) Ur Leukocyte Esterase 3+ H (Negative) Urine WBC (Auto) >30 H (0-5) /hpf Urine RBC (Auto) 0-4 (0-4) /hpf U Hyaline Cast (Auto) 1-5 (0-5) /lpf U Epithel Cells (Auto) >30 H (0-5) /lpf Urine Bacteria (Auto) 1+ H (Negative) Urine Yeast Not Reportable Stl C. diff Tox B Gene (Neg) Stl C.difficile Tox A&B (Negative) COVID-19 Eval Order COVID-19 PCR (Negative) Medications Administered Current Inpatient Medications Acetaminophen (Acetaminophen 325 Mg Tab) 650 mg PO Q4H PRN PRN Reason: pain/fever Stop: 09/16/20 20:06 Atorvastatin Calcium (Atorvastatin 40 Mg Tab) 40 mg PO QPM MARLA Stop: 09/16/20 20:59 Last Admin: 08/17/20 21:50 Dose: 40 mg Documented by: Azithromycin (Azithromycin 250 Mg Tab) 500 mg PO DAILY ONE Stop: 08/18/20 16:01 Clopidogrel Bisulfate (Clopidogrel Bisulfate 75 Mg Tab) 75 mg PO QPM MARLA Stop: 09/16/20 20:59 Last Admin: 08/17/20 21:50 Dose: 75 mg Documented by: Dextrose (Dextrose 50% 50 Ml Syringe) 25 - 50 ml IV UD PRN; Protocol PRN Reason: Hypoglycemia Protocol Stop: 09/16/20 20:06 Doxepin HCl (Doxepin Hcl 50 Mg Capsule) 100 mg PO HS [facility] Stop: 09/16/20 20:59 Last Admin: 08/17/20 21:51 Dose: 100 mg Documented by: Duloxetine HCl (Duloxetine Hcl 60 Mg Cap) 60 mg PO QAM MARLA Stop: 09/17/20 08:59 Last Admin: 08/18/20 08:07 Dose: 60 mg Documented by: Ferrous Sulfate (Ferrous Sulfate 325 Mg Tab) 325 mg PO BID [facility] Stop: 09/16/20 20:59 Last Admin: 08/18/20 08:08 Dose: 325 mg Documented by: Gabapentin (Gabapentin 300 Mg Cap) 300 mg PO TID [facility] Stop: 09/16/20 20:59 Last Admin: 08/18/20 08:08 Dose: 300 mg Documented by: Glucagon (Glucagon For Inj 1 Mg Vial) 1 mg SQ UD PRN; Protocol PRN Reason: Hypoglycemia Protocol Stop: 09/16/20 20:06 Glucose (Glucose 10 Tabs/Tube) 4 - 8 tabs PO UD PRN; Protocol PRN Reason: Hypoglycemia Protocol Stop: 09/16/20 20:06 Glucose (Glucose 40% Gel 15 Gm Tube) 15 - 30 gm PO UD PRN; Protocol PRN Reason: Hypoglycemia Protocol Stop: 09/16/20 20:06 Heparin Sodium (Porcine) (Heparin Sod 5,000 Unit/0.5 Ml Vial) 5,000 units SQ Q8 MARLA Stop: 09/16/20 21:59 Last Admin: 08/18/20 05:59 Dose: 5,000 units Documented by: Ceftriaxone Sodium 2,000 mg/ (Dextrose) 70 mls @ 140 mls/hr IV Q24H [facility]; Protocol Stop: 08/25/20 16:59 Insulin Aspart (Insulin Aspart 100 Units/Ml 3 Ml Pen) 0 units SC ACHS [facility] Stop: 09/16/20 20:59 Last Admin: 08/18/20 08:17 Dose: Not Given Documented by: Insulin Glargine (Insulin Glargine Solostar 100 Units/Ml 3 Ml Pen) 8 units SC BID [facility] Stop: 09/16/20 20:59 Last Admin: 08/18/20 08:08 Dose: Not Given Documented by: Magnesium Oxide (Magnesium Oxide 400 Mg Tab) 400 mg PO HS [facility] Stop: 09/16/20 20:59 Last Admin: 08/17/20 21:50 Dose: 400 mg Documented by: Metoprolol Succinate (Metoprolol Succ 25mg Ext Rel Tab) 75 mg PO BID [facility] Stop: 09/16/20 20:59 Last Admin: 08/18/20 08:08 Dose: 75 mg Documented by: Miscellaneous (Teriparatide [Forteo] 20 Mcg/Dose ~ Order Awaiting Action) 1 ea N/A QS MARLA Stop: 09/17/20 00:00 Last Admin: 08/18/20 08:09 Dose: Not Given Documented by: Miscellaneous (Carbohydrates For Hypoglycemia ) 15 - 30 gm PO UD PRN PRN Reason: Hypoglycemia Protocol Stop: 09/16/20 20:06 Oxcarbazepine (Oxcarbazepine 150 Mg Tablet) 300 mg PO BID [facility]LA Stop: 09/16/20 20:59 Last Admin: 08/18/20 08:08 Dose: 300 mg Documented by: Pantoprazole Sodium (Pantoprazole 40 Mg Tab) 40 mg PO DAILY [facility]LA Stop: 09/17/20 08:59 Last Admin: 08/18/20 08:07 Dose: 40 mg Documented by: Saccharomyces Boulardii (Saccharomyces Boulardii 250 Mg Cap) 250 mg PO BID [facility] Stop: 09/16/20 20:59 Last Admin: 08/18/20 08:08 Dose: 250 mg Documented by: Vitamin D (Cholecalciferol 1,000 Units 25 Mcg Tab) 2,000 units PO QAM MARLA Stop: 09/17/20 08:59 Last Admin: 08/18/20 08:08 Dose: 2,000 units Documented by: (1) Acute renal failure superimposed on stage 3 chronic kidney disease Acute renal failure type: with acute tubular necrosis Qualified Code(s): N17.0 - Acute kidney failure with tubular necrosis; N18.3 - Chronic kidney di sease, stage 3 (moderate) (2) Pneumonia Laterality: bilateral Lung location: lower lobe of lung Pneumonia type: due to unspecified organism Qualified Code(s): J18.1 - Lobar pneumonia, unspecified organism
[2020-08-18] MEDS ORDERED: SODIUM CHLORIDE 0.9% 1000ML 500 ML IV ONE (16:00)
[2020-08-18] MEDS ORDERED: AZITHROMYCIN 250 MG TAB PO ONE (16:00)
[2020-08-18] MEDS: cefTRIAXone SODIUM 2,000 MG in DEXTROSE 5% 50 ML IV SCH (16:20)
[2020-08-18] MEDS: guaiFENesin 600 MG TABCR PO SCH (20:52)
[2020-08-18] MEDS: MAGNESIUM OXIDE 400 MG TAB PO SCH (20:53)
[2020-08-18] MEDS: ATORVASTATIN 40 MG TAB PO SCH (20:53)
[2020-08-18] MEDS: DOXEPIN HCL 50 MG CAPSULE PO SCH (20:54)
[2020-08-18] MEDS: CLOPIDOGREL BISULFATE 75 MG TAB PO SCH (20:54)
[2020-08-19] MEDS: HEPARIN SOD 5,000 UNIT/0.5 ML VIAL SQ SCH ×3 (05:32→20:43)
[2020-08-19] MEDS: ACETAMINOPHEN 325 MG TAB PO PRN (05:38)
[2020-08-19] MEDS: AZITHROMYCIN 250 MG TAB PO SCH (08:06)
[2020-08-19] MEDS: GABAPENTIN 300 MG CAP PO SCH ×3 (08:07→20:40)
[2020-08-19] MEDS: DULoxetine HCL 60 MG CAP PO SCH (08:07)
[2020-08-19] MEDS: OXcarbazepine 150 MG TABLET PO SCH ×2 (08:07→20:42)
[2020-08-19] MEDS: METOPROLOL SUCC 25MG EXT REL TAB PO SCH (08:07)
[2020-08-19] MEDS: CHOLECALCIFEROL 1,000 UNITS 25 MCG TAB PO SCH (08:07)
[2020-08-19] MEDS: guaiFENesin 600 MG TABCR PO SCH ×2 (08:08→20:41)
[2020-08-19] MEDS: PANTOprazole 40 MG TAB PO SCH (08:08)
[2020-08-19] MEDS: SACCHAROMYCES BOULARDII 250 MG CAP PO SCH ×2 (08:08→20:42)
[2020-08-19] MEDS: FERROUS SULFATE 325 MG TAB PO SCH ×2 (08:08→20:42)
[2020-08-19] MEDS: INSULIN GLARGINE SOLOSTAR 100 UNITS/ML 3 ML PEN SC SCH ×2 (08:11→20:43)
[2020-08-19 09:01] LABS: Hematocrit (blood only) 36.1 % (37-47); Hemoglobin 10.7 g/dL (12.0-16.0); Mean Corpuscular Hemoglobin 29.2 pg (25-34); Mean Corpuscular Hgb Conc 29.6 g/dL (32-36); Mean Corpuscular Volume 98.4 fL (80-100); Mean Platelet Volume 10.9 fL (7.4-10.4); Platelet Count 235 K/uL (130-400); Red Blood Count 3.67 M/uL (4.2-5.4); White Blood Count 6.92 K/uL (4.8-10.8)
[2020-08-19 09:38] LABS: BUN Creatinine Ratio 13.1 (10-20); Calcium 9.1 mg/dl (8.5-10.1); Creatinine Clr Calc Pharmacy 30.6 ml/min; Est GFR (African American) 32.5; Est GFR (Non-African American) 28.1; Magnesium 2.1 mg/dl (1.8-2.4); Phosphorus 3.3 mg/dl (2.5-4.9); Potassium 4.4 mmol/L (3.5-5.1)
[2020-08-19] MEDS: INSULIN ASPART 100 UNITS/ML 3 ML PEN SC SCH ×4 (09:53→20:47)
[2020-08-19] MEDS ORDERED: LACTATED RINGER'S 250 ML IV ONE (11:37)
[2020-08-19] MEDS ORDERED: traMADol HCL 50 MG TABLET PO ONE ×2 (11:44→16:50)
[2020-08-19] MEDS: LIDOCAINE 5% 1 PATCH TD SCH ×2 (13:20→18:01)
[2020-08-19] MEDS: cefTRIAXone SODIUM 2,000 MG in DEXTROSE 5% 50 ML IV SCH (18:01)
[2020-08-19] MEDS ORDERED: SODIUM CHLORIDE 0.9% 500 ML IV ONE (20:04)
[2020-08-19] MEDS: oxyCODONE HCL IR 5 MG TAB (IMMEDIATE RELEASE) PO PRN (20:41)
[2020-08-19] MEDS: CLOPIDOGREL BISULFATE 75 MG TAB PO SCH (20:42)
[2020-08-19] MEDS: ATORVASTATIN 40 MG TAB PO SCH (20:42)
[2020-08-19] MEDS: MAGNESIUM OXIDE 400 MG TAB PO SCH (20:42)
[2020-08-19] MEDS: DOXEPIN HCL 50 MG CAPSULE PO SCH (20:42)
[2020-08-19 20:43] LABS: BUN Creatinine Ratio 12.4 (10-20); Calcium 9.1 mg/dl (8.5-10.1); Creatinine Clr Calc Pharmacy 33.3 ml/min; Est GFR (African American) 36.1; Est GFR (Non-African American) 31.1; Potassium 4.1 mmol/L (3.5-5.1)
[2020-08-19] MEDS ORDERED: SODIUM CHLORIDE 0.9% 1000ML 500 ML IV ONE (21:09)
--- NOTE | 2020-08-20 01:22 | Hospitalist Progress Note ---
Date of Service August 19, 2020 Assessment & Plan (1) Recurrent falls: (2) Weakness: Patient with recent recurrent falls at home. She has been feeling lightheaded/dizzy. She admits that she has not been eating or drinking well. She feels that her legs want to give out on her very easily. Feel that her lightheadedness/dizziness could be multifactorial given probable infection, multiple [employer] medications, dehydration with acute renal failure, and overall complicated medical history. Admit to Med/Surg with Tele. Continue to monitor vitals closely. BP slightly elevated on admission,now pt is mostly hypotensive. PT/OT Fall precautions. (3) Pneumonia: (4) COPD (chronic obstructive pulmonary disease): (5) Obesity hypoventilation syndrome: (6) Asthma: Patient with pneumonia on imaging. She has only occasional cough or SOB currently She is saturating well on room air. Patient does not use a CPAP at home despite history of CALI and obesity hypoventilation syndrome. O2 PRN to maintain SaO2 >90% Patient given IV Ceftriaxone and Azithromycin in the ED. Continue these. monitor CBC, BMP Blood cultures ordered. Urine culture repeated -pending. (7) Acute renal failure superimposed on stage 3 chronic kidney disease: (8) HTN (hypertension): (9) Renal calculi: Patient's creatinine up to 2.4 from baseline of 1.4. Will need to closely monitor. Seems likely to be secondary to poor PO intake. IVF Monitor BMP Encourage PO intake. HOLD lisinopril for now. Decrease pantoprazole to once daily dosing for now Consider Nephrology consultation pending improvement in renal fxn Renal calculi and collecting system edema appears chronic on imaging- unlikely to be contributing to current ARF. Cr improved (10) DM type 2 (diabetes mellitus, type 2): Insulin sliding scale. (11) DVT prophylaxis: Heparin Q8h Admission and Anticipated Discharge Date Admission Date: August 17, 2020 Subjective Patient is lying in bed, in no acute distress. No fevers or chills, she does have cough with deep inspiration. Feels very weak. Reports EWING, chronic back pain and R knee pain d/t OA. Review of Systems Review of Systems: All systems reviewed & are unremarkable except as noted in HPI & below Constitutional: + fatigue and + weakness (generalized); no fever and no chills Respiratory: + cough (occasional); no dyspnea Cardiovascular: no chest pain and no palpitations Gastrointestinal: no abdominal pain, no nausea and no vomiting Physical Exam Physical Exam: Constitutional: + ill appearing, + morbidly obese,no acute distress Eyes: PERRL, EOMI, conjunctivae normal, anicteric sclerae ENMT: external ear and nose normal, oropharynx normal Neck: trachea midline, no thyromegaly + thick neck Respiratory: normal respiratory effort; no respiratory distress, no labored breathing, does not use accessory muscles and no cough Mild rhonchi on the right Cardiovascular: RRR, no murmur, no edema Gastrointestinal (Abdomen): Inspection/Auscultation: abdomen normal to inspection and normal bowel sounds; abdomen not distended Percussion/Palpation: + abdomen nontender, abdomen soft; no guarding and abdomen not rigid Musculoskeletal: Head/Neck/Chest: normocephalic and head atraumatic No pitting edema on exam. Moves extremities. Skin: no rashes, warm and dry Neuro/Psych: alert and oriented x3, answering questions appropriately, PERRL, EOMI, no face palsy, no dysarthria, moves extremities Results & Data Results & Data ([facility]) Vital Signs (Past 12 Hours) Vital Signs Temp Pulse Pulse Resp BP BP Pulse Ox 08/19/20 23:55 36.7 C 74 16 96/63 L 92 08/19/20 20:38 37.5 C 83 18 90/61 L 94 08/19/20 15:53 36.8 C 86 18 95/62 L 91 08/19/20 15:39 79 Laboratory Results 08/19/20 08/19/20 08/19/20 Range/Units 20:36 20:19 20:19 WBC (4.8-10.8) K/uL RBC (4.2-5.4) M/uL Hgb (12.0-16.0) g/dL Hct (37-47) % MCV (80-100) fL MCH (25-34) pg MCHC (32-36) g/dL RDW Std Deviation (36.4-46.3) fL RDW Coeff of Teresa (11.5-14.5) % Plt Count (130-400) K/uL MPV (7.4-10.4) fL Sodium 138 (136-145) mmol/L Potassium 4.1 (3.5-5.1) mmol/L Chloride 112 H (98-107) mmol/L Carbon Dioxide 21 (21-32) mmol/L Anion Gap 5.0 (3-11) BUN 21 H (7-18) mg/dl Creatinine 1.69 H (0.6-1.2) mg/dl Est Cr Clr Drug Dosing 33.3 ml/min Est GFR ( Amer) 36.1 Est GFR (Non-Af Amer) 31.1 BUN/Creatinine Ratio 12.4 (10-20) Glucose 110 H (70-99) mg/dl POC Glucose 107 H (70-99) mg/dl Lactate 0.7 (0.4-2.0) mmol/L Calcium 9.1 (8.5-10.1) mg/dl Phosphorus (2.5-4.9) mg/dl Magnesium (1.8-2.4) mg/dl 08/19/20 08/19/20 08/19/20 Range/Units 16:56 11:46 08:14 WBC (4.8-10.8) K/uL RBC (4.2-5.4) M/uL Hgb (12.0-16.0) g/dL Hct (37-47) % MCV (80-100) fL MCH (25-34) pg MCHC (32-36) g/dL RDW Std Deviation (36.4-46.3) fL RDW Coeff of Teresa (11.5-14.5) % Plt Count (130-400) K/uL MPV (7.4-10.4) fL Sodium 141 (136-145) mmol/L Potassium 4.4 (3.5-5.1) mmol/L Chloride 115 H (98-107) mmol/L Carbon Dioxide 21 (21-32) mmol/L Anion Gap 5.0 (3-11) BUN 24 H (7-18) mg/dl Creatinine 1.84 H (0.6-1.2) mg/dl Est Cr Clr Drug Dosing 30.6 ml/min Est GFR ( Amer) 32.5 Est GFR (Non-Af Amer) 28.1 BUN/Creatinine Ratio 13.1 (10-20) Glucose 85 (70-99) mg/dl POC Glucose 109 H 101 H (70-99) mg/dl Lactate (0.4-2.0) mmol/L Calcium 9.1 (8.5-10.1) mg/dl Phosphorus 3.3 (2.5-4.9) mg/dl Magnesium 2.1 (1.8-2.4) mg/dl 08/19/20 08/19/20 Range/Units 08:14 07:54 WBC 6.92 (4.8-10.8) K/uL RBC 3.67 L (4.2-5.4) M/uL Hgb 10.7 L (12.0-16.0) g/dL Hct 36.1 L (37-47) % MCV 98.4 (80-100) fL MCH 29.2 (25-34) pg MCHC 29.6 L (32-36) g/dL RDW Std Deviation 50.0 H (36.4-46.3) fL RDW Coeff of Teresa 14.0 (11.5-14.5) % Plt Count 235 (130-400) K/uL MPV 10.9 H (7.4-10.4) fL Sodium (136-145) mmol/L Potassium (3.5-5.1) mmol/L Chloride (98-107) mmol/L Carbon Dioxide (21-32) mmol/L Anion Gap (3-11) BUN (7-18) mg/dl Creatinine (0.6-1.2) mg/dl Est Cr Clr Drug Dosing ml/min Est GFR ( Amer) Est GFR (Non-Af Amer) BUN/Creatinine Ratio (10-20) Glucose (70-99) mg/dl POC Glucose 97 (70-99) mg/dl Lactate (0.4-2.0) mmol/L Calcium (8.5-10.1) mg/dl Phosphorus (2.5-4.9) mg/dl Magnesium (1.8-2.4) mg/dl Medications Administered Current Inpatient Medications Acetaminophen (Acetaminophen 325 Mg Tab) 650 mg PO Q4H PRN PRN Reason: pain/fever Stop: 09/16/20 20:06 Last Admin: 08/19/20 05:38 Dose: 650 mg Documented by: Atorvastatin Calcium (Atorvastatin 40 Mg Tab) 40 mg PO QPM [facility] Stop: 09/16/20 20:59 Last Admin: 08/19/20 20:42 Dose: 40 mg Documented by: Azithromycin (Azithromycin 250 Mg Tab) 250 mg PO QAM [facility] Stop: 08/25/20 08:59 Last Admin: 08/19/20 08:06 Dose: 250 mg Documented by: Clopidogrel Bisulfate (Clopidogrel Bisulfate 75 Mg Tab) 75 mg PO QPM [facility] Stop: 09/16/20 20:59 Last Admin: 08/19/20 20:42 Dose: 75 mg Documented by: Dextrose (Dextrose 50% 50 Ml Syringe) 25 - 50 ml IV UD PRN; Protocol PRN Reason: Hypoglycemia Protocol Stop: 09/16/20 20:06 Doxepin HCl (Doxepin Hcl 50 Mg Capsule) 100 mg PO HS [facility] Stop: 09/16/20 20:59 Last Admin: 08/19/20 20:42 Dose: 100 mg Documented by: Duloxetine HCl (Duloxetine Hcl 60 Mg Cap) 60 mg PO QAM [facility] Stop: 09/17/20 08:59 Last Admin: 08/19/20 08:07 Dose: 60 mg Documented by: Ferrous Sulfate (Ferrous Sulfate 325 Mg Tab) 325 mg PO BID [facility] Stop: 09/16/20 20:59 Last Admin: 08/19/20 20:42 Dose: 325 mg Documented by: Gabapentin (Gabapentin 300 Mg Cap) 300 mg PO TID [facility] Stop: 09/16/20 20:59 Last Admin: 08/19/20 20:40 Dose: 300 mg Documented by: Glucagon (Glucagon For Inj 1 Mg Vial) 1 mg SQ UD PRN; Protocol PRN Reason: Hypoglycemia Protocol Stop: 09/16/20 20:06 Glucose (Glucose 10 Tabs/Tube) 4 - 8 tabs PO UD PRN; Protocol PRN Reason: Hypoglycemia Protocol Stop: 09/16/20 20:06 Glucose (Glucose 40% Gel 15 Gm Tube) 15 - 30 gm PO UD PRN; Protocol PRN Reason: Hypoglycemia Protocol Stop: 09/16/20 20:06 Guaifenesin (Guaifenesin 600 Mg Tabcr) 600 mg PO Q12 [facility] Stop: 09/17/20 20:59 Last Admin: 08/19/20 20:41 Dose: 600 mg Documented by: Heparin Sodium (Porcine) (Heparin Sod 5,000 Unit/0.5 Ml Vial) 5,000 units SQ Q8 [facility] Stop: 09/16/20 21:59 Last Admin: 08/19/20 20:43 Dose: 5,000 units Documented by: Ceftriaxone Sodium 2,000 mg/ (Dextrose) 70 mls @ 140 mls/hr IV Q24H [facility]; Protocol Stop: 08/25/20 16:59 Last Infusion: 08/19/20 18:39 Dose: Infused Documented by: Insulin Aspart (Insulin Aspart 100 Units/Ml 3 Ml Pen) 0 units SC ACHS [facility] Stop: 09/16/20 20:59 Last Admin: 08/19/20 20:47 Dose: Not Given Documented by: Insulin Glargine (Insulin Glargine Solostar 100 Units/Ml 3 Ml Pen) 8 units SC BID [facility] Stop: 09/16/20 20:59 Last Admin: 08/19/20 20:43 Dose: 8 units Documented by: Lidocaine (Lidocaine 5% 1 Patch) 1 patch TD QAM [facility] Stop: 09/18/20 11:44 Last Admin: 08/19/20 13:20 Dose: 1 patch Documented by: Lidocaine (Lidocaine 5% 1 Patch) 1 patch TD [facility] Stop: 09/18/20 16:59 Last Admin: 08/19/20 18:01 Dose: 1 patch Documented by: Magnesium Oxide (Magnesium Oxide 400 Mg Tab) 400 mg PO HS [facility] Stop: 09/16/20 20:59 Last Admin: 08/19/20 20:42 Dose: 400 mg Documented by: Metoprolol Succinate (Metoprolol Succ 25mg Ext Rel Tab) 12.5 mg PO BID [facility] Stop: 09/19/20 08:59 Miscellaneous (Teriparatide [Forteo] 20 Mcg/Dose ~ Order Awaiting Action) 1 ea N/A QS [facility] Stop: 09/17/20 00:00 Last Admin: 08/19/20 23:18 Dose: Not Given Documented by: Miscellaneous (Carbohydrates For Hypoglycemia ) 15 - 30 gm PO UD PRN PRN Reason: Hypoglycemia Protocol Stop: 09/16/20 20:06 Miscellaneous (Remove Lidoderm Patch) 1 ea N/A DAILY@2099 [facility] Stop: 09/18/20 20:59 Last Admin: 08/19/20 20:43 Dose: 1 ea Documented by: Miscellaneous (Remove Lidoderm Patch) 1 ea N/A DAILY@2099 [facility] Stop: 09/18/20 20:59 Last Admin: 08/19/20 20:43 Dose: 1 ea Documented by: Oxcarbazepine (Oxcarbazepine 150 Mg Tablet) 300 mg PO BID [facility] Stop: 09/16/20 20:59 Last Admin: 08/19/20 20:42 Dose: 300 mg Documented by: Oxycodone HCl (Oxycodone Hcl Ir 5 Mg Tab (Immediate Release)) 5 - 10 mg PO QID PRN PRN Reason: Pain Stop: 09/02/20 20:01 Last Admin: 08/19/20 20:41 Dose: 10 mg Documented by: Pantoprazole Sodium (Pantoprazole 40 Mg Tab) 40 mg PO DAILY [facility] Stop: 09/17/20 08:59 Last Admin: 08/19/20 08:08 Dose: 40 mg Documented by: Saccharomyces Boulardii (Saccharomyces Boulardii 250 Mg Cap) 250 mg PO BID [facility] Stop: 09/16/20 20:59 Last Admin: 08/19/20 20:42 Dose: 250 mg Documented by: Vitamin D (Cholecalciferol 1,000 Units 25 Mcg Tab) 2,000 units PO QAM [facility] Stop: 09/17/20 08:59 Last Admin: 08/19/20 08:07 Dose: 2,000 units Documented by: (1) Pneumonia Laterality: bilateral Lung location: lower lobe of lung Pneumonia type: due to unspecified organism Qualified Code(s): J18.1 - Lobar pneumonia, unspecified organism (2) Acute renal failure superimposed on stage 3 chronic kidney disease Acute renal failure type: with acute tubular necrosis Qualified Code(s): N17.0 - Acute kidney failure with tubular necrosis; N18.3 - Chronic kidney disease, stage 3 (moderate)
[2020-08-20 05:39] LABS: Hematocrit (blood only) 33.1 % (37-47); Hemoglobin 10.1 g/dL (12.0-16.0); Mean Corpuscular Hemoglobin 29.5 pg (25-34); Mean Corpuscular Hgb Conc 30.5 g/dL (32-36); Mean Corpuscular Volume 96.8 fL (80-100); Mean Platelet Volume 10.1 fL (7.4-10.4); Platelet Count 238 K/uL (130-400); RDW Coefficient of Variation 13.9 % (11.5-14.5); RDW Standard Deviation 48.9 fL (36.4-46.3); Red Blood Count 3.42 M/uL (4.2-5.4); White Blood Count 6.26 K/uL (4.8-10.8)
[2020-08-20 06:10] LABS: Creatinine Clr Calc Pharmacy 36.1 ml/min; Est GFR (African American) 39.7; Est GFR (Non-African American) 34.3; Magnesium 1.9 mg/dl (1.8-2.4)
[2020-08-20 06:11] LABS: Phosphorus 3.7 mg/dl (2.5-4.9)
[2020-08-20] MEDS: HEPARIN SOD 5,000 UNIT/0.5 ML VIAL SQ SCH ×3 (06:15→21:05)
[2020-08-20 07:03] LABS: Appearance Urine Turbid (Clear); Bacteria Urine Automated Negative (Negative); Bilirubin Urine Negative (Negative); Blood Urine 1+ (Negative); Color Urine Yellow; Epithelial Cell Urine Auto 20-30 /lpf (0-5); Glucose Urine UA Negative (Negative); Ketones Urine Negative (Negative); Leukocyte Esterase Urine 3+ (Negative); Nitrite Urine Negative (Negative); Protein Urine 2+ (Negative); RBC Urine Automated 0-4 /hpf (0-4); Specific Gravity Urine 1.017 (1.000-1.030); Urobilinogen Urine Negative (Negative); WBC Urine Automated >30 /hpf (0-5); pH Urine 5.5 (4.5-7.5)
[2020-08-20] MEDS: INSULIN ASPART 100 UNITS/ML 3 ML PEN SC SCH ×4 (09:44→20:59)
[2020-08-20] MEDS: INSULIN GLARGINE SOLOSTAR 100 UNITS/ML 3 ML PEN SC SCH ×2 (10:08→20:57)
[2020-08-20] MEDS: PROMETHAZINE HCL 12.5 MG in SODIUM CHLORIDE 0.9% 50 ML IV PRN (10:44)
[2020-08-20] MEDS: METOPROLOL SUCC 25MG EXT REL TAB PO SCH ×2 (10:47→21:00)
[2020-08-20] MEDS: DULoxetine HCL 60 MG CAP PO SCH (10:50)
[2020-08-20] MEDS: guaiFENesin 600 MG TABCR PO SCH ×2 (10:51→21:03)
[2020-08-20] MEDS: SACCHAROMYCES BOULARDII 250 MG CAP PO SCH ×2 (10:51→21:02)
[2020-08-20] MEDS: LIDOCAINE 5% 1 PATCH TD SCH ×2 (10:51)
[2020-08-20] MEDS: FERROUS SULFATE 325 MG TAB PO SCH ×2 (10:51→21:03)
[2020-08-20] MEDS: PANTOprazole 40 MG TAB PO SCH (10:51)
[2020-08-20] MEDS: GABAPENTIN 300 MG CAP PO SCH ×3 (10:51→21:01)
[2020-08-20] MEDS: AZITHROMYCIN 250 MG TAB PO SCH (10:52)
[2020-08-20] MEDS: CHOLECALCIFEROL 1,000 UNITS 25 MCG TAB PO SCH (10:52)
[2020-08-20] MEDS: OXcarbazepine 150 MG TABLET PO SCH ×2 (10:52→21:04)
[2020-08-20] MEDS: oxyCODONE HCL IR 5 MG TAB (IMMEDIATE RELEASE) PO PRN ×2 (11:01→21:09)
[2020-08-20] MEDS: ACETAMINOPHEN 325 MG TAB PO PRN (14:04)
--- NOTE | 2020-08-20 15:10 | Hospitalist Progress Note ---
Date of Service August 20, 2020 Assessment & Plan (1) Recurrent falls: Mechanical fall Evidence of fracture Get PT and OT evaluation (2) Weakness: Patient with recent recurrent falls at home. She has been feeling lightheaded/dizzy. She admits that she has not been eating or drinking well. She feels that her legs want to give out on her very easily. Feel that her lightheadedness/dizziness could be multifactorial given probable infection, multiple [employer] medications, dehydration with acute renal failure, and PT and OT evaluation Fall precautions. (3) Pneumonia: Chest x-ray finding supports pneumonia involving the right base Getting intravenous ceftriaxone and oral azithromycin Clinically better without any fever and/or chills Blood cultures have been negative and Urine culture is pending (4) COPD (chronic obstructive pulmonary disease): No evidence of acute exacerbation (5) Obesity hypoventilation syndrome: (6) Asthma: Patient with pneumonia on imaging. She has only occasional cough or SOB currently She is saturating well on room air. Patient does not use a CPAP at home despite history of CALI and obesity hypoventilation syndrome. O2 PRN to maintain SaO2 >90% Patient given IV Ceftriaxone and Azithromycin in the ED. Continue these. monitor CBC, BMP Blood cultures ordered. Urine culture repeated -pending. (7) Acute renal failure superimposed on stage 3 chronic kidney disease: Lisinopril is on holdCreatinine on admission was 2.49 and has been improving since then Creatinine 1.56 as of 08/20/2020 (8) HTN (hypertension): (9) Renal calculi: Patient's creatinine up to 2.4 from baseline of 1.4. Will need to closely monitor. Seems likely to be secondary to poor PO intake. (10) DM type 2 (diabetes mellitus, type 2): Insulin sliding scale. (11) DVT prophylaxis: Heparin Q8h Admission and Anticipated Discharge Date Admission Date: August 17, 2020 Subjective The patient was seen and examined in medical telemetry unit She has been complaining of nausea and remains extremely weak and lethargic Denies any fever and/or chills No shortness of breath at rest Review of Systems Review of Systems: All systems reviewed and are unremarkable except as noted below Constitutional: + weakness Musculoskeletal: + back pain Neurologic: + generalized weakness Physical Exam Physical Exam: Lying in bed with some distress due to back pain and nausea Constitutional: well developed, well nourished, + acute distress (Due to back pain and nausea) and + obese Eyes: PERRL, conjunctivae normal, anicteric sclerae ENMT: external ear and nose normal, oropharynx normal Neck: trachea midline, no thyromegaly Respiratory: no respiratory distress Auscultation: lungs clear to auscultation bilaterally and + diminished lung sounds (At the right base with crackles) Cardiovascular: Rate/Rhythm: regular rate and regular rhythm Heart Sounds: no murmur Gastrointestinal (Abdomen): Inspection/Auscultation: normal bowel sounds; abdomen not distended Percussion/Palpation: abdomen nontender Musculoskeletal: No acute arthritis in any joint Neurologic: Alert, awake and oriented. Generally weak and lethargic Psychiatric: A+Ox3, euthymic affect Lymphatic: no cervical or axillary lymphadenopathy Results & Data Results & Data ([facility]) Vital Signs (Past 12 Hours) Vital Signs Temp Pulse Pulse Resp BP Pulse Ox 08/20/20 11:00 36.3 C L 98 H 20 105/70 93 08/20/20 07:33 86 08/20/20 07:25 36.6 C 74 18 98/64 L 90 08/20/20 05:06 94 H 08/20/20 03:02 36.3 C L 78 18 97/62 L 93 Laboratory Results Short CBC 08/20/20 Range/Units 05:28 WBC 6.26 (4.8-10.8) K/uL Hgb 10.1 L (12.0-16.0) g/dL Hct 33.1 L (37-47) % Plt Count 238 (130-400) K/uL BMP 08/19/20 08/20/20 20:19 05:28 Sodium 138 141 Potassium 4.1 4.0 Chloride 112 H 115 H Carbon Dioxide 21 20 L BUN 21 H 19 H Creatinine 1.69 H 1.56 H Glucose 110 H 84 Calcium 9.1 9.0 Urine 08/20/20 Range/Units 06:20 Urine Color Yellow Urine Appearance Turbid A (Clear) Urine pH 5.5 (4.5-7.5) Ur Specific [place] 1.017 (1.000-1.030) Urine Protein 2+ H (Negative) Urine Glucose (UA) Negative (Negative) Medications Administered Current Inpatient Medications Acetaminophen (Acetaminophen 325 Mg Tab) 650 mg PO Q4H PRN PRN Reason: pain/fever Stop: 12/08/20 20:06 Last Admin: 08/20/20 14:04 Dose: 650 mg Documented by: Atorvastatin Calcium (Atorvastatin 40 Mg Tab) 40 mg PO QPM [facility] Stop: 09/16/20 20:59 Last Admin: 08/19/20 20:42 Dose: 40 mg Documented by: Azithromycin (Azithromycin 250 Mg Tab) 250 mg PO QAM [facility] Stop: 08/25/20 08:59 Last Admin: 08/20/20 10:52 Dose: 250 mg Documented by: Clopidogrel Bisulfate (Clopidogrel Bisulfate 75 Mg Tab) 75 mg PO QPM [facility] Stop: 09/16/20 20:59 Last Admin: 08/19/20 20:42 Dose: 75 mg Documented by: Dextrose (Dextrose 50% 50 Ml Syringe) 25 - 50 ml IV UD PRN; Protocol PRN Reason: Hypoglycemia Protocol Stop: 09/16/20 20:06 Doxepin HCl (Doxepin Hcl 50 Mg Capsule) 100 mg PO HS [facility] Stop: 09/16/20 20:59 Last Admin: 08/19/20 20:42 Dose: 100 mg Documented by: Duloxetine HCl (Duloxetine Hcl 60 Mg Cap) 60 mg PO QAM [facility] Stop: 09/17/20 08:59 Last Admin: 08/20/20 10:50 Dose: 60 mg Documented by: Ferrous Sulfate (Ferrous Sulfate 325 Mg Tab) 325 mg PO BID [facility] Stop: 09/16/20 20:59 Last Admin: 08/20/20 10:51 Dose: 325 mg Documented by: Gabapentin (Gabapentin 300 Mg Cap) 300 mg PO TID [facility] Stop: 09/16/20 20:59 Last Admin: 08/20/20 14:05 Dose: 300 mg Documented by: Glucagon (Glucagon For Inj 1 Mg Vial) 1 mg SQ UD PRN; Protocol PRN Reason: Hypoglycemia Protocol Stop: 09/16/20 20:06 Glucose (Glucose 10 Tabs/Tube) 4 - 8 tabs PO UD PRN; Protocol PRN Reason: Hypoglycemia Protocol Stop: 09/16/20 20:06 Glucose (Glucose 40% Gel 15 Gm Tube) 15 - 30 gm PO UD PRN; Protocol PRN Reason: Hypoglycemia Protocol Stop: 09/16/20 20:06 Guaifenesin (Guaifenesin 600 Mg Tabcr) 600 mg PO Q12 [facility] Stop: 09/17/20 20:59 Last Admin: 08/20/20 10:51 Dose: 600 mg Documented by: Heparin Sodium (Porcine) (Heparin Sod 5,000 Unit/0.5 Ml Vial) 5,000 units SQ Q8 [facility] Stop: 09/16/20 21:59 Last Admin: 08/20/20 14:05 Dose: 5,000 units Documented by: Ceftriaxone Sodium 2,000 mg/ (Dextrose) 70 mls @ 140 mls/hr IV Q24H [facility]; Protocol Stop: 08/25/20 16:59 Last Infusion: 08/19/20 18:39 Dose: Infused Documented by: Promethazine HCl 12.5 mg/ (Sodium Chloride) 50.5 mls @ 202 mls/hr IV Q6H PRN PRN Reason: Nausea And Vomiting Stop: 09/19/20 10:11 Last Infusion: 08/20/20 11:19 Dose: Infused Documented by: Insulin Aspart (Insulin Aspart 100 Units/Ml 3 Ml Pen) 0 units SC ACHS [facility] Stop: 09/16/20 20:59 Last Admin: 08/20/20 12:37 Dose: 7 units Documented by: Insulin Glargine (Insulin Glargine Solostar 100 Units/Ml 3 Ml Pen) 8 units SC BID [facility] Stop: 09/16/20 20:59 Last Admin: 08/20/20 10:08 Dose: Not Given Documented by: Lidocaine (Lidocaine 5% 1 Patch) 1 patch TD QAM [facility] Stop: 09/18/20 11:44 Last Admin: 08/20/20 10:51 Dose: 1 patch Documented by: Lidocaine (L[facility]ocaine 5% 1 Patch) [facility]: 09/18/20 16:59 Last Admin: 08/20/20 10:51 Dose: 1 patch Documented by: Magnesium Oxide (Magnesium Oxide 400 Mg Tab) 400 mg PO HS [facility] Stop: 09/16/20 20:59 Last Admin: 08/19/20 20:42 Dose: 400 mg Documented by: Metoprolol Succinate (Metoprolol Succ 25mg Ext Rel Tab) 12.5 mg PO BID [facility] Stop: 09/19/20 08:59 Last Admin: 08/20/20 10:47 Dose: Not Given Documented by: Miscellaneous (Teriparatide [Forteo] 20 Mcg/Dose ~ Order Awaiting Action) 1 ea N/A QS [facility] Stop: 09/17/20 00:00 Last Admin: 08/20/20 09:35 Dose: Not Given Documented by: Miscellaneous (Carbohydrates For Hypoglycemia ) 15 - 30 gm PO UD PRN PRN Reason: Hypoglycemia Protocol Stop: 09/16/20 20:06 Miscellaneous (Remove Lidoderm Patch) 1 ea N/A DAILY@2099 [facility] Stop: 09/18/20 20:59 Last Admin: 08/19/20 20:43 Dose: 1 ea Documented by: Miscellaneous (Remove Lidoderm Patch) 1 ea N/A DAILY@2099 [facility] Stop: 09/18/20 20:59 Last Admin: 08/19/20 20:43 Dose: 1 ea Documented by: Oxcarbazepine (Oxcarbazepine 150 Mg Tablet) 300 mg PO BID [facility] Stop: 09/16/20 20:59 Last Admin: 08/20/20 10:52 Dose: 300 mg Documented by: Oxycodone HCl (Oxycodone Hcl Ir 5 Mg Tab (Immediate Release)) 5 - 10 mg PO QID PRN PRN Reason: Pain Stop: 09/02/20 20:01 Last Admin: 08/20/20 11:01 Dose: 5 mg Documented by: Pantoprazole Sodium (Pantoprazole 40 Mg Tab) 40 mg PO DAILY [facility] Stop: 09/17/20 08:59 Last Admin: 08/20/20 10:51 Dose: 40 mg Documented by: Saccharomyces Boulardii (Saccharomyces Boulardii 250 Mg Cap) 250 mg PO BID [facility] Stop: 09/16/20 20:59 Last Admin: 08/20/20 10:51 Dose: 250 mg Documented by: Vitamin D (Cholecalciferol 1,000 Units 25 Mcg Tab) 2,000 units PO QAM [facility] Stop: 09/17/20 08:59 Last Admin: 08/20/20 10:52 Dose: 2,000 units Documented by: (1) Pneumonia Laterality: bilateral Lung location: lower lobe of lung Pneumonia type: due to unspecified organism Qualified Code(s): J18.1 - Lobar pneumonia, unspecified organism (2) Acute renal failure superimposed on stage 3 chronic kidney disease Acute renal failure type: with acute tubular necrosis Qualified Code(s): N17.0 - Acute kidney failure with tubular necrosis; N18.3 - Chronic kidney dise ase, stage 3 (moderate)
[2020-08-20] MEDS: cefTRIAXone SODIUM 2,000 MG in DEXTROSE 5% 50 ML IV SCH (16:25)
[2020-08-20] MEDS: ATORVASTATIN 40 MG TAB PO SCH (21:02)
[2020-08-20] MEDS: MAGNESIUM OXIDE 400 MG TAB PO SCH (21:02)
[2020-08-20] MEDS: CLOPIDOGREL BISULFATE 75 MG TAB PO SCH (21:03)
[2020-08-20] MEDS: DOXEPIN HCL 50 MG CAPSULE PO SCH (21:03)
[2020-08-21] MEDS: HEPARIN SOD 5,000 UNIT/0.5 ML VIAL SQ SCH ×3 (06:37→21:25)
[2020-08-21] MEDS: METOPROLOL SUCC 25MG EXT REL TAB PO SCH ×2 (07:38→21:22)
[2020-08-21] MEDS: OXcarbazepine 150 MG TABLET PO SCH ×2 (07:39→21:20)
[2020-08-21] MEDS: guaiFENesin 600 MG TABCR PO SCH ×2 (07:39→21:18)
[2020-08-21] MEDS: SACCHAROMYCES BOULARDII 250 MG CAP PO SCH ×2 (07:39→21:19)
[2020-08-21] MEDS: AZITHROMYCIN 250 MG TAB PO SCH (07:39)
[2020-08-21] MEDS: GABAPENTIN 300 MG CAP PO SCH ×3 (07:39→21:19)
[2020-08-21] MEDS: CHOLECALCIFEROL 1,000 UNITS 25 MCG TAB PO SCH (07:39)
[2020-08-21] MEDS: FERROUS SULFATE 325 MG TAB PO SCH ×2 (07:39→21:21)
[2020-08-21] MEDS: PANTOprazole 40 MG TAB PO SCH (07:40)
[2020-08-21] MEDS: LIDOCAINE 5% 1 PATCH TD SCH ×2 (07:40)
[2020-08-21] MEDS: DULoxetine HCL 60 MG CAP PO SCH (07:40)
[2020-08-21] MEDS: INSULIN GLARGINE SOLOSTAR 100 UNITS/ML 3 ML PEN SC SCH ×2 (08:35→21:24)
[2020-08-21] MEDS: INSULIN ASPART 100 UNITS/ML 3 ML PEN SC SCH ×4 (08:35→21:24)
[2020-08-21] MEDS: oxyCODONE HCL IR 5 MG TAB (IMMEDIATE RELEASE) PO PRN ×3 (11:12→23:37)
[2020-08-21] MEDS: ACETAMINOPHEN 325 MG TAB PO PRN (16:15)
--- NOTE | 2020-08-21 17:42 | Hospitalist Progress Note ---
Date of Service August 21, 2020 Assessment & Plan (1) Recurrent falls: Mechanical fall Evidence of fracture Get PT and OT evaluation (2) Weakness: Patient with recent recurrent falls at home. She has been feeling lightheaded/dizzy. She admits that she has not been eating or drinking well. She feels that her legs want to give out on her very easily. Feel that her lightheadedness/dizziness could be multifactorial given probable infection, multiple [employer] medications, dehydration with acute renal failure, and PT and OT evaluation Fall precautions. Remains weak and lethargic-we will need to do more PT and OT (3) Pneumonia: Chest x-ray finding supports pneumonia involving the right base Getting intravenous ceftriaxone and oral azithromycin Clinically better without any fever and/or chills Blood cultures have been negative and Urine culture is pending-pinpoint growth, reintubating We will continue current antibiotics (4) COPD (chronic obstructive pulmonary disease): No evidence of acute exacerbation (5) Obesity hypoventilation syndrome: (6) Asthma: Patient with pneumonia on imaging. She has only occasional cough or SOB currently She is saturating well on room air. Patient does not use a CPAP at home despite history of CALI and obesity hypoventilation syndrome. O2 PRN to maintain SaO2 >90% Patient given IV Ceftriaxone and Azithromycin in the ED. Continue these. monitor CBC, BMP Blood cultures ordered. Urine culture repeated -pending. (7) Acute renal failure superimposed on stage 3 chronic kidney disease: Lisinopril is on holdCreatinine on admission was 2.49 and has been improving since then Creatinine 1.56 as of 08/20/2020 (8) HTN (hypertension): (9) Renal calculi: Patient's creatinine up to 2.4 from baseline of 1.4. Will need to closely monitor. Seems likely to be secondary to poor PO intake. (10) DM type 2 (diabetes mellitus, type 2): Insulin sliding scale. (11) DVT prophylaxis: Heparin Q8h Admission and Anticipated Discharge Date Admission Date: August 17, 2020 Subjective The patient was seen and examined in medical telemetry unit She has been complaining of nausea and remains extremely weak and lethargic Denies any fever and/or chills No shortness of breath at rest 08/21/2020 The patient was seen and examined in medical telemetry unit He remains stable but complains to headache and back pain Denies any shortness of breath, cough or chest pain Denies any nausea and/or vomiting Review of Systems Review of Systems: All systems reviewed and are unremarkable except as noted b elow Constitutional: + weakness Respiratory: + cough (occasional); no dyspnea Musculoskeletal: + back pain Neurologic: + generalized weakness Physical Exam Physical Exam: Lying in bed with some distress due to back pain and nausea Constitutional: well developed, well nourished, + acute distress (Due to back pain and nausea) and + obese Eyes: PERRL, conjunctivae normal, anicteric sclerae ENMT: external ear and nose normal, oropharynx normal Neck: trachea midline, no thyromegaly Respiratory: no respiratory distress Auscultation: lungs clear to auscultation bilaterally and + diminished lung sounds (At the right base with crackles) Cardiovascular: Rate/Rhythm: regular rate and regular rhythm Heart Sounds: no murmur Gastrointestinal (Abdomen): Inspection/Auscultation: normal bowel sounds; abdomen not distended Percussion/Palpation: abdomen nontender Musculoskeletal: No acute arthritis in any joint Neurologic: Alert, awake and oriented x3. Generally weak and lethargic Psychiatric: A+Ox3, euthymic affect Lymphatic: no cervical or axillary lymphadenopathy Results & Data Results & Data ([facility]) Vital Signs (Past 12 Hours) Vital Signs Temp Pulse Pulse Resp BP Pulse Ox 08/21/20 17:27 102 H 08/21/20 14:00 37.0 C 95 H 20 101/69 91 08/21/20 11:00 36.8 C 88 20 99/68 L 93 08/21/20 08:00 36.8 C 86 20 120/80 91 Medications Administered Current Inpatient Medications Acetaminophen (Acetaminophen 325 Mg Tab) 650 mg PO Q4H PRN PRN Reason: pain/fever Stop: 09/16/20 20:06 Last Admin: 08/21/20 16:15 Dose: 650 mg Documented by: Atorvastatin Calcium (Atorvastatin 40 Mg Tab) 40 mg PO QPM [facility] Stop: 09/16/20 20:59 Last Admin: 08/20/20 21:02 Dose: 40 mg Documented by: Azithromycin (Azithromycin 250 Mg Tab) 250 mg PO QAM [facility] Stop: 08/25/20 08:59 Last Admin: 08/21/20 07:39 Dose: 250 mg Documented by: Clopidogrel Bisulfate (Clopidogrel Bisulfate 75 Mg Tab) 75 mg PO QPM [facility] Stop: 09/16/20 20:59 Last Admin: 08/20/20 21:03 Dose: 75 mg Documented by: Dextrose (Dextrose 50% 50 Ml Syringe) 25 - 50 ml IV UD PRN; Protocol PRN Reason: Hypoglycemia Protocol Stop: 09/16/20 20:06 Doxepin HCl (Doxepin Hcl 50 Mg Capsule) 100 mg PO HS [facility] Stop: 09/16/20 20:59 Last Admin: 08/20/20 21:03 Dose: 100 mg Documented by: Duloxetine HCl (Duloxetine Hcl 60 Mg Cap) 60 mg PO QAM [facility] Stop: 09/17/20 08:59 Last Admin: 08/21/20 07:40 Dose: 60 mg Documented by: Ferrous Sulfate (Ferrous Sulfate 325 Mg Tab) 325 mg PO BID [facility] Stop: 09/16/20 20:59 Last Admin: 08/21/20 07:39 Dose: 325 mg Documented by: Gabapentin (Gabapentin 300 Mg Cap) 300 mg PO TID [facility] Stop: 09/16/20 20:59 Last Admin: 08/21/20 13:19 Dose: 300 mg Documented by: Glucagon (Glucagon For Inj 1 Mg Vial) 1 mg SQ UD PRN; Protocol PRN Reason: Hypoglycemia Protocol Stop: 09/16/20 20:06 Glucose (Glucose 10 Tabs/Tube) 4 - 8 tabs PO UD PRN; Protocol PRN Reason: Hypoglycemia Protocol Stop: 09/16/20 20:06 Glucose (Glucose 40% Gel 15 Gm Tube) 15 - 30 gm PO UD PRN; Protocol PRN Reason: Hypoglycemia Protocol Stop: 09/16/20 20:06 Guaifenesin (Guaifenesin 600 Mg Tabcr) 600 mg PO Q12 [facility] Stop: 09/17/20 20:59 Last Admin: 08/21/20 07:39 Dose: 600 mg Documented by: Heparin Sodium (Porcine) (Heparin Sod 5,000 Unit/0.5 Ml Vial) 5,000 units SQ Q8 [facility] Stop: 09/16/20 21:59 Last Admin: 08/21/20 13:19 Dose: 5,000 units Documented by: Ceftriaxone Sodium 2,000 mg/ (Dextrose) 70 mls @ 140 mls/hr IV Q24H [facility]; Protocol Stop: 08/25/20 16:59 Last Infusion: 08/20/20 17:14 Dose: Infused Documented by: Promethazine HCl 12.5 mg/ (Sodium Chloride) 50.5 mls @ 202 mls/hr IV Q6H PRN PRN Reason: Nausea And Vomiting Stop: 09/19/20 10:11 Last Infusion: 08/20/20 11:19 Dose: Infused Documented by: Insulin Aspart (Insulin Aspart 100 Units/Ml 3 Ml Pen) 0 units SC ACHS [facility] Stop: 09/16/20 20:59 Last Admin: 08/21/20 17:23 Dose: 4 units Documented by: Insulin Glargine (Insulin Glargine Solostar 100 Units/Ml 3 Ml Pen) 8 units SC BID [facility] Stop: 09/16/20 20:59 Last Admin: 08/21/20 08:35 Dose: 8 units Documented by: Lidocaine (Lidocaine 5% 1 Patch) 1 patch TD QAM [facility] Stop: 09/18/20 11:44 Last Admin: 08/21/20 07:40 Dose: 1 patch Documented by: Lidocaine (Lidocaine 5% 1 Patch) 1 patch TD [facility] Stop: 09/18/20 16:59 Last Admin: 08/21/20 07:40 Dose: 1 patch Documented by: Magnesium Oxide (Magnesium Oxide 400 Mg Tab) 400 mg PO HS [facility] Stop: 09/16/20 20:59 Last Admin: 08/20/20 21:02 Dose: 400 mg Documented by: Metoprolol Succinate (Metoprolol Succ 25mg Ext Rel Tab) 12.5 mg PO BID [facility] Stop: 09/19/20 08:59 Last Admin: 08/21/20 07:38 Dose: Not Given Documented by: Miscellaneous (Teriparatide [Forteo] 20 Mcg/Dose ~ Order Awaiting Action) 1 ea N/A QS [facility] Stop: 09/17/20 00:00 Last Admin: 08/21/20 15:08 Dose: Not Given Documented by: Miscellaneous (Carbohydrates For Hypoglycemia ) 15 - 30 gm PO UD PRN PRN Reason: Hypoglycemia Protocol Stop: 09/16/20 20:06 Miscellaneous (Remove Lidoderm Patch) 1 ea N/A DAILY@2099 [facility] Stop: 09/18/20 20:59 Last Admin: 08/20/20 21:04 Dose: 1 ea Documented by: Miscellaneous (Remove Lidoderm Patch) 1 ea N/A DAILY@2099 [facility] Stop: 09/18/20 20:59 Last Admin: 08/20/20 21:01 Dose: 1 ea Documented by: Oxcarbazepine (Oxcarbazepine 150 Mg Tablet) 300 mg PO BID [facility] Stop: 09/16/20 20:59 Last Admin: 08/21/20 07:39 Dose: 300 mg Documented by: Oxycodone HCl (Oxycodone Hcl Ir 5 Mg Tab (Immediate Release)) 5 - 10 mg PO QID PRN PRN Reason: Pain Stop: 09/02/20 20:01 Last Admin: 08/21/20 17:02 Dose: 10 mg Documented by: Pantoprazole Sodium (Pantoprazole 40 Mg Tab) 40 mg PO DAILY [facility] Stop: 09/17/20 08:59 Last Admin: 08/21/20 07:40 Dose: 40 mg Documented by: Saccharomyces Boulardii (Saccharomyces Boulardii 250 Mg Cap) 250 mg PO BID [facility] Stop: 09/16/20 20:59 Last Admin: 08/21/20 07:39 Dose: 250 mg Documented by: Vitamin D (Cholecalciferol 1,000 Units 25 Mcg Tab) 2,000 units PO QAM [facility] Stop: 09/17/20 08:59 Last Admin: 08/21/20 07:39 Dose: 2,000 units Documented by: (1) Pneumonia Laterality: bilateral Lung location: lower lobe of lung Pneumonia type: due to unspecified organism Qualified Code(s): J18.1 - Lobar pneumonia, unspecified organism (2) Acute renal failure superimposed on stage 3 chronic kidney disease Acute renal failure type: with acute tubular necrosis Qualified Code(s): N17.0 - Acute kidney failure with tubular necrosis; N18.3 - Chronic kidney disease, stage 3 (moderate)
[2020-08-21] MEDS: cefTRIAXone SODIUM 2,000 MG in DEXTROSE 5% 50 ML IV SCH (18:03)
[2020-08-21] MEDS: CLOPIDOGREL BISULFATE 75 MG TAB PO SCH (21:19)
[2020-08-21] MEDS: MAGNESIUM OXIDE 400 MG TAB PO SCH (21:20)
[2020-08-21] MEDS: DOXEPIN HCL 50 MG CAPSULE PO SCH (21:21)
[2020-08-21] MEDS: ATORVASTATIN 40 MG TAB PO SCH (21:22)
[2020-08-22] MEDS: HEPARIN SOD 5,000 UNIT/0.5 ML VIAL SQ SCH ×3 (05:55→21:08)
[2020-08-22 06:51] LABS: Basophils # (auto) 0.02 K/uL (0-0.2); Basophils % (auto) 0.3 %; Eosinophils # (auto) 0.34 K/uL (0-0.5); Eosinophils % (auto) 5.1 %; Hematocrit (blood only) 33.3 % (37-47); Immature Granulocytes % (auto) 1.5 %; Lymphocytes # (auto) 2.02 K/uL (1.2-3.4); Lymphocytes % (auto) 30.5 %; Mean Corpuscular Hemoglobin 29.4 pg (25-34); Mean Corpuscular Volume 97.9 fL (80-100); Mean Platelet Volume 10.4 fL (7.4-10.4); Monocytes # (auto) 0.71 K/uL (0.11-0.59); Monocytes % (auto) 10.7 %; Neutrophils # (auto) 3.44 K/uL (1.4-6.5); Neutrophils % (auto) 51.9 %; Platelet Count 247 K/uL (130-400); White Blood Count 6.63 K/uL (4.8-10.8)
[2020-08-22 07:14] LABS: BUN Creatinine Ratio 11.1 (10-20); Creatinine Clr Calc Pharmacy 37.6 ml/min; Est GFR (African American) 41.6; Est GFR (Non-African American) 35.9; Phosphorus 3.6 mg/dl (2.5-4.9); Potassium 3.9 mmol/L (3.5-5.1)
[2020-08-22] MEDS: INSULIN ASPART 100 UNITS/ML 3 ML PEN SC SCH ×4 (08:21→21:03)
[2020-08-22] MEDS: DULoxetine HCL 60 MG CAP PO SCH (08:22)
[2020-08-22] MEDS: SACCHAROMYCES BOULARDII 250 MG CAP PO SCH ×2 (08:23→21:08)
[2020-08-22] MEDS: METOPROLOL SUCC 25MG EXT REL TAB PO SCH ×2 (08:23→21:07)
[2020-08-22] MEDS: FERROUS SULFATE 325 MG TAB PO SCH ×2 (08:23→21:08)
[2020-08-22] MEDS: INSULIN GLARGINE SOLOSTAR 100 UNITS/ML 3 ML PEN SC SCH ×2 (08:24→21:04)
[2020-08-22] MEDS: LIDOCAINE 5% 1 PATCH TD SCH ×2 (08:25→09:03)
[2020-08-22] MEDS: guaiFENesin 600 MG TABCR PO SCH ×2 (08:25→21:07)
[2020-08-22] MEDS: OXcarbazepine 150 MG TABLET PO SCH ×2 (08:26→21:07)
[2020-08-22] MEDS: GABAPENTIN 300 MG CAP PO SCH ×3 (08:26→21:08)
[2020-08-22] MEDS: AZITHROMYCIN 250 MG TAB PO SCH (08:26)
[2020-08-22] MEDS: CHOLECALCIFEROL 1,000 UNITS 25 MCG TAB PO SCH (08:26)
[2020-08-22] MEDS: PANTOprazole 40 MG TAB PO SCH (08:27)
--- NOTE | 2020-08-22 12:58 | Hospitalist Progress Note ---
Date of Service August 22, 2020 Assessment & Plan (1) Recurrent falls: Mechanical fall Evidence of fracture Get PT and OT evaluation (2) Weakness: Patient with recent recurrent falls at home. She has been feeling lightheaded/dizzy. She admits that she has not been eating or drinking well. She feels that her legs want to give out on her very easily. Feel that her lightheadedness/dizziness could be multifactorial given probable infection, multiple [employer] medications, dehydration with acute renal failure, and PT and OT evaluation Fall precautions. Clinically a lot better today and was advised to participate in PT and OT (3) Pneumonia: Chest x-ray finding supports pneumonia involving the right base Getting intravenous ceftriaxone and oral azithromycin Clinically better without any fever and/or chills Blood cultures have been negative and Urine culture is growing 3 types of organisms We will continue current antibiotics for now Denies any respiratory symptoms (4) COPD (chronic obstructive pulmonary disease): No evidence of acute exacerbation (5) Obesity hypoventilation syndrome: (6) Asthma: No acute shortness of breath She is saturating well on room air. CALI and obesity hypoventilation syndrome Patient does not use a CPAP at home despite history of CALI and obesity hypoventilation syndrome. O2 PRN to maintain SaO2 >90% (7) Acute renal failure superimposed on stage 3 chronic kidney disease: Lisinopril is on holdCreatinine on admission was 2.49 and has been improving since then Creatinine 1.56 as of 08/20/2020 Creatinine is minimally improved at 1.50 as of 08/22/2020 (8) HTN (hypertension): (9) Renal calculi: Patient's creatinine up to 2.4 from baseline of 1.4. Will need to closely monitor. Seems likely to be secondary to poor PO intake. (10) DM type 2 (diabetes mellitus, type 2): Insulin sliding scale. (11) DVT prophylaxis: Heparin Q8h Admission and Anticipated Discharge Date Admission Date: August 17, 2020 Anticipated date of discharge: 08/25/20 Subjective The patient was seen and examined in medical telemetry unit She has been complaining of nausea and remains extremely weak and lethargic Denies any fever and/or chills No shortness of breath at rest 08/21/2020 The patient was seen and examined in medical telemetry unit He remains stable but complains to headache and back pain Denies any shortness of breath, cough or chest pain Denies any nausea and/or vomiting 08/22/2020 The patient was seen and examined in medical telemetry unit He has been feeling a lot better today Denies any headache and/or back pain and her breathing is improved She was advised to participate in physical and occupational therapy Review of Systems Review of Systems: All systems reviewed and are unremarkable except as noted below Respiratory: + cough (occasional); no dyspnea Musculoskeletal: + back pain Neurologic: + generalized weakness Physical Exam Physical Exam: Lying in bed comfortably Constitutional: well developed, well nourished, + acute distress (Due to back pain and nausea) and + obese Eyes: PERRL, conjunctivae normal, anicteric sclerae ENMT: external ear and nose normal, oropharynx normal Neck: trachea midline, no thyromegaly Respiratory: no respiratory distress Auscultation: lungs clear to auscultation bilaterally and + diminished lung sounds (At the right base with crackles) Cardiovascular: Rate/Rhythm: regular rate and regular rhythm Heart Sounds: no murmur Extremities: + edema (Trace to 1+ edema bilaterally) Gastrointestinal (Abdomen): Inspection/Auscultation: normal bowel sounds; abdomen not distended Percussion/Palpation: abdomen soft; abdomen nontender Musculoskeletal: No acute arthritis in any joint Neurologic: Alert, awake and oriented x3. And really weak but no focal neuro deficit Psychiatric: A+Ox3, euthymic affect Lymphatic: no cervical or axillary lymphadenopathy Results & Data Results & Data ([facility]) Vital Signs (Past 12 Hours) Vital Signs Temp Pulse Pulse Resp BP BP Pulse Ox 08/22/20 11:07 36.8 C 74 18 114/78 93 08/22/20 09:17 71 08/22/20 07:26 36.4 C L 74 18 93/61 L 93 08/22/20 03:35 36.7 C 90 20 96/58 L 92 Laboratory Results Short CBC 08/22/20 Range/Units 06:27 WBC 6.63 (4.8-10.8) K/uL Hgb 10.0 L (12.0-16.0) g/dL Hct 33.3 L (37-47) % Plt Count 247 (130-400) K/uL BMP 08/22/20 06:27 Sodium 140 Potassium 3.9 Chloride 112 H Carbon Dioxide 22 BUN 17 Creatinine 1.50 H Glucose 93 Calcium 9.0 Medications Administered Current Inpatient Medications Acetaminophen (Acetaminophen 325 Mg Tab) 650 mg PO Q4H PRN PRN Reason: pain/fever Stop: 09/16/20 20:06 Last Admin: 08/21/20 16:15 Dose: 650 mg Documented by: Atorvastatin Calcium (Atorvastatin 40 Mg Tab) 40 mg PO QPM [facility] Stop: 09/16/20 20:59 Last Admin: 08/21/20 21:22 Dose: 40 mg Documented by: Azithromycin (Azithromycin 250 Mg Tab) 250 mg PO QAM [facility] Stop: 08/25/20 08:59 Last Admin: 08/22/20 08:26 Dose: 250 mg Documented by: Clopidogrel Bisulfate (Clopidogrel Bisulfate 75 Mg Tab) 75 mg PO QPM [facility] Stop: 09/16/20 20:59 Last Admin: 08/21/20 21:19 Dose: 75 mg Documented by: Dextrose (Dextrose 50% 50 Ml Syringe) 25 - 50 ml IV UD PRN; Protocol PRN Reason: Hypoglycemia Protocol Stop: 09/16/20 20:06 Doxepin HCl (Doxepin Hcl 50 Mg Capsule) 100 mg PO HS [facility] Stop: 09/16/20 20:59 Last Admin: 08/21/20 21:21 Dose: 100 mg Documented by: Duloxetine HCl (Duloxetine Hcl 60 Mg Cap) 60 mg PO QAM [facility] Stop: 09/17/20 08:59 Last Admin: 08/22/20 08:22 Dose: 60 mg Documented by: Ferrous Sulfate (Ferrous Sulfate 325 Mg Tab) 325 mg PO BID [facility] Stop: 09/16/20 20:59 Last Admin: 08/22/20 08:23 Dose: 325 mg Documented by: Gabapentin (Gabapentin 300 Mg Cap) 300 mg PO TID [facility] Stop: 09/16/20 20:59 Last Admin: 08/22/20 08:26 Dose: 300 mg Documented by: Glucagon (Glucagon For Inj 1 Mg Vial) 1 mg SQ UD PRN; Protocol PRN Reason: Hypoglycemia Protocol Stop: 09/16/20 20:06 Glucose (Glucose 10 Tabs/Tube) 4 - 8 tabs PO UD PRN; Protocol PRN Reason: Hypoglycemia Protocol Stop: 09/16/20 20:06 Glucose (Glucose 40% Gel 15 Gm Tube) 15 - 30 gm PO UD PRN; Protocol PRN Reason: Hypoglycemia Protocol Stop: 09/16/20 20:06 Guaifenesin (Guaifenesin 600 Mg Tabcr) 600 mg PO Q12 [facility] Stop: 09/17/20 20:59 Last Admin: 08/22/20 08:25 Dose: 600 mg Documented by: Heparin Sodium (Porcine) (Heparin Sod 5,000 Unit/0.5 Ml Vial) 5,000 units SQ Q8 [facility] Stop: 09/16/20 21:59 Last Admin: 08/22/20 05:55 Dose: 5,000 units Documented by: Ceftriaxone Sodium 2,000 mg/ (Dextrose) 70 mls @ 140 mls/hr IV Q24H [facility]; Protocol Stop: 08/25/20 16:59 Last Infusion: 08/21/20 18:40 Dose: Infused Documented by: Promethazine HCl 12.5 mg/ (Sodium Chloride) 50.5 mls @ 202 mls/hr IV Q6H PRN PRN Reason: Nausea And Vomiting Stop: 09/19/20 10:11 Last Infusion: 08/20/20 11:19 Dose: Infused Documented by: Insulin Aspart (Insulin Aspart 100 Units/Ml 3 Ml Pen) 0 units SC ACHS [facility] Stop: 09/16/20 20:59 Last Admin: 08/22/20 12:30 Dose: 3 units Documented by: Insulin Glargine (Insulin Glargine Solostar 100 Units/Ml 3 Ml Pen) 8 units SC BID [facility] Stop: 09/16/20 20:59 Last Admin: 08/22/20 08:24 Dose: 8 units Documented by: Lidocaine (Lidocaine 5% 1 Patch) 1 patch TD QAM [facility] Stop: 09/18/20 11:44 Last Admin: 08/22/20 08:25 Dose: 1 patch Documented by: Lidocaine (Lidocaine 5% 1 Patch) 1 patch TD QAM [facility] Stop: 09/18/20 16:59 Last Admin: 08/22/20 09:03 Dose: 1 patch Documented by: Magnesium Oxide (Magnesium Oxide 400 Mg Tab) 400 mg PO HS [facility] Stop: 09/16/20 20:59 Last Admin: 08/21/20 21:20 Dose: 400 mg Documented by: Metoprolol Succinate (Metoprolol Succ 25mg Ext Rel Tab) 12.5 mg PO BID [facility] Stop: 09/19/20 08:59 Last Admin: 08/22/20 08:23 Dose: Not Given Documented by: Miscellaneous (Teriparatide [Forteo] 20 Mcg/Dose ~ Order Awaiting Action) 1 ea N/A QS [facility] Stop: 09/17/20 00:00 Last Admin: 08/22/20 08:22 Dose: Not Given Documented by: Miscellaneous (Carbohydrates For Hypoglycemia ) 15 - 30 gm PO UD PRN PRN Reason: Hypoglycemia Protocol Stop: 09/16/20 20:06 Miscellaneous (Remove Lidoderm Patch) 1 ea N/A DAILY@2099 [facility] Stop: 09/18/20 20:59 Last Admin: 08/21/20 21:23 Dose: 1 ea Documented by: Miscellaneous (Remove Lidoderm Patch) 1 ea N/A DAILY@2099 [facility] Stop: 09/18/20 20:59 Last Admin: 08/21/20 21:23 Dose: 1 ea Documented by: Oxcarbazepine (Oxcarbazepine 150 Mg Tablet) 300 mg PO BID [facility] Stop: 09/16/20 20:59 Last Admin: 08/22/20 08:26 Dose: 300 mg Documented by: Oxycodone HCl (Oxycodone Hcl Ir 5 Mg Tab (Immediate Release)) 5 - 10 mg PO QID PRN PRN Reason: Pain Stop: 09/02/20 20:01 Last Admin: 08/21/20 23:37 Dose: 10 mg Documented by: Pantoprazole Sodium (Pantoprazole 40 Mg Tab) 40 mg PO DAILY [facility] Stop: 09/17/20 08:59 Last Admin: 08/22/20 08:27 Dose: 40 mg Documented by: Saccharomyces Boulardii (Saccharomyces Boulardii 250 Mg Cap) 250 mg PO BID [facility] Stop: 09/16/20 20:59 Last Admin: 08/22/20 08:23 Dose: 250 mg Documented by: Vitamin D (Cholecalciferol 1,000 Units 25 Mcg Tab) 2,000 units PO QAM [facility] Stop: 09/17/20 08:59 Last Admin: 08/22/20 08:26 Dose: 2,000 units Documented by: (1) Pneumonia Laterality: bilateral Lung location: lower lobe of lung Pneumonia type: due to unspecified organism Qualified Code(s): J18.1 - Lobar pneumonia, unspecified organism (2) Acute renal failure superimposed on stage 3 chronic kidney disease Acute renal failure type: with acute tubular necrosis Qualified Code(s): N17.0 - Acute kidney failure with tubular necrosis; N18.3 - Chronic kidney disease, stage 3 (moderate)
[2020-08-22] MEDS: cefTRIAXone SODIUM 2,000 MG in DEXTROSE 5% 50 ML IV SCH (17:15)
[2020-08-22] MEDS: CLOPIDOGREL BISULFATE 75 MG TAB PO SCH (21:08)
[2020-08-22] MEDS: MAGNESIUM OXIDE 400 MG TAB PO SCH (21:08)
[2020-08-22] MEDS: DOXEPIN HCL 50 MG CAPSULE PO SCH (21:08)
[2020-08-22] MEDS: ATORVASTATIN 40 MG TAB PO SCH (21:08)
[2020-08-22] MEDS: oxyCODONE HCL IR 5 MG TAB (IMMEDIATE RELEASE) PO PRN (21:17)
[2020-08-22] MEDS: PROMETHAZINE HCL 12.5 MG in SODIUM CHLORIDE 0.9% 50 ML IV PRN (21:40)
[2020-08-23] MEDS: HEPARIN SOD 5,000 UNIT/0.5 ML VIAL SQ SCH ×3 (05:41→19:37)
[2020-08-23] MEDS: INSULIN ASPART 100 UNITS/ML 3 ML PEN SC SCH ×4 (09:29→21:06)
[2020-08-23] MEDS: AZITHROMYCIN 250 MG TAB PO SCH (09:30)
[2020-08-23] MEDS: PANTOprazole 40 MG TAB PO SCH (09:30)
[2020-08-23] MEDS: guaiFENesin 600 MG TABCR PO SCH ×2 (09:31→19:37)
[2020-08-23] MEDS: FERROUS SULFATE 325 MG TAB PO SCH ×2 (09:31→19:36)
[2020-08-23] MEDS: LIDOCAINE 5% 1 PATCH TD SCH ×2 (09:31)
[2020-08-23] MEDS: DULoxetine HCL 60 MG CAP PO SCH (09:31)
[2020-08-23] MEDS: CHOLECALCIFEROL 1,000 UNITS 25 MCG TAB PO SCH (09:31)
[2020-08-23] MEDS: SACCHAROMYCES BOULARDII 250 MG CAP PO SCH ×2 (09:32→19:36)
[2020-08-23] MEDS: METOPROLOL SUCC 25MG EXT REL TAB PO SCH ×2 (09:32→19:29)
[2020-08-23] MEDS: OXcarbazepine 150 MG TABLET PO SCH ×2 (09:32→19:37)
[2020-08-23] MEDS: GABAPENTIN 300 MG CAP PO SCH ×3 (09:33→19:37)
[2020-08-23] MEDS: INSULIN GLARGINE SOLOSTAR 100 UNITS/ML 3 ML PEN SC SCH ×2 (09:35→21:06)
[2020-08-23] MEDS: oxyCODONE HCL IR 5 MG TAB (IMMEDIATE RELEASE) PO PRN ×2 (09:43→19:34)
--- NOTE | 2020-08-23 14:37 | Hospitalist Progress Note ---
Date of Service August 23, 2020 Assessment & Plan (1) Recurrent falls: Mechanical fall Evidence of fracture Get PT and OT evaluation (2) Weakness: Patient with recent recurrent falls at home. She has been feeling lightheaded/dizzy. She admits that she has not been eating or drinking well. She feels that her legs want to give out on her very easily. 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 Clinically a lot better today and was advised to participate in PT and OT (3) Pneumonia: Chest x-ray finding supports pneumonia involving the right base Getting intravenous ceftriaxone and oral azithromycin Clinically better without any fever and/or chills Blood cultures have been negative and Urine culture is growing 3 types of organisms We will continue current antibiotics for now Denies any respiratory symptoms No more respiratory symptoms (4) COPD (chronic obstructive pulmonary disease): No evidence of acute exacerbation (5) Obesity hypoventilation syndrome: (6) Asthma: No acute shortness of breath She is saturating well on room air. CALI and obesity hypoventilation syndrome Patient does not use a CPAP at home despite history of CALI and obesity hypove ntilation syndrome. O2 PRN to maintain SaO2 >90% (7) Acute renal failure superimposed on stage 3 chronic kidney disease: Lisinopril is on holdCreatinine on admission was 2.49 and has been improving since then Creatinine 1.56 as of 08/20/2020 Creatinine is minimally improved at 1.50 as of 08/22/2020 Advised to drink more fluid (8) HTN (hypertension): (9) Renal calculi: Patient's creatinine up to 2.4 from baseline of 1.4. Will need to closely monitor. Seems likely to be secondary to poor PO intake. (10) DM type 2 (diabetes mellitus, type 2): Insulin sliding scale. (11) DVT prophylaxis: Heparin Q8h Admission and Anticipated Discharge Date Admission Date: August 17, 2020 Subjective The patient was seen and examined in medical telemetry unit She has been complaining of nausea and remains extremely weak and lethargic Denies any fever and/or chills No shortness of breath at rest 08/21/2020 The patient was seen and examined in medical telemetry unit He remains stable but complains to headache and back pain Denies any shortness of breath, cough or chest pain Denies any nausea and/or vomiting 08/22/2020 The patient was seen and examined in medical telemetry unit He has been feeling a lot better today Denies any headache and/or back pain and her breathing is improved She was advised to participate in physical and occupational therapy 08/23/2020 The patient was seen and examined in medical telemetry unit She has been feeling a lot better and denies any cough and/or shortness of breath Her pain seems to be much improved too Review of Systems Review of Systems: All systems reviewed and are unremarkable except as noted below Constitutional: + weakness Respiratory: + cough (occasional); no dyspnea Musculoskeletal: + back pain Neurologic: + generalized weakness Physical Exam Physical Exam: Lying in bed comfortably Constitutional: well developed, well nourished, + acute distress (Due to back pain and nausea) and + obese Eyes: PERRL, conjunctivae normal, anicteric sclerae ENMT: external ear and nose normal, oropharynx normal Neck: trachea midline, no thyromegaly Respiratory: no respiratory distress Auscultation: lungs clear to auscultation bilaterally and + diminished lung sounds (At the right base with crackles) Cardiovascular: Rate/Rhythm: regular rate and regular rhythm Heart Sounds: no murmur Extremities: + edema (Trace to 1+ edema bilaterally) Gastrointestinal (Abdomen): Inspection/Auscultation: normal bowel sounds; abdomen not distended Percussion/Palpation: abdomen soft; abdomen nontender Musculoskeletal: No acute arthritis in any joint and her back pain is improved Neurologic: Alert, awake and oriented x3. No focal sensory and/or motor deficit but generally very weak and lethargic. Psychiatric: A+Ox3, euthymic affect Lymphatic: no cervical or axillary lymphadenopathy Results & Data Results & Data ([facility]) Vital Signs (Past 12 Hours) Vital Signs Temp Pulse Pulse Resp BP BP Pulse Ox 08/23/20 12:07 36.7 C 80 18 89/60 L 90 08/23/20 07:58 36.5 C 71 18 102/69 95 08/23/20 07:38 71 08/23/20 04:00 36.8 C 77 18 101/71 93 Medications Administered Current Inpatient Medications Acetaminophen (Acetaminophen 325 Mg Tab) 650 mg PO Q4H PRN PRN Reason: pain/fever Stop: 09/16/20 20:06 Last Admin: 08/21/20 16:15 Dose: 650 mg Documented by: Atorvastatin Calcium (Atorvastatin 40 Mg Tab) 40 mg PO QPM [facility] Stop: 09/16/20 20:59 Last Admin: 08/22/20 21:08 Dose: 40 mg Documented by: Azithromycin (Azithromycin 250 Mg Tab) 250 mg PO QAM [facility] Stop: 08/25/20 08:59 Last Admin: 08/23/20 09:30 Dose: 250 mg Documented by: Clopidogrel Bisulfate (Clopidogrel Bisulfate 75 Mg Tab) 75 mg PO QPM [facility] Stop: 09/16/20 20:59 Last Admin: 08/22/20 21:08 Dose: 75 mg Documented by: Dextrose (Dextrose 50% 50 Ml Syringe) 25 - 50 ml IV UD PRN; Protocol PRN Reason: Hypoglycemia Protocol Stop: 09/16/20 20:06 Doxepin HCl (Doxepin Hcl 50 Mg Capsule) 100 mg PO HS [facility] Stop: 09/16/20 20:59 Last Admin: 08/22/20 21:08 Dose: 100 mg Documented by: Duloxetine HCl (Duloxetine Hcl 60 Mg Cap) 60 mg PO QAM [facility] Stop: 09/17/20 08:59 Last Admin: 08/23/20 09:31 Dose: 60 mg Documented by: Ferrous Sulfate (Ferrous Sulfate 325 Mg Tab) 325 mg PO BID [facility] Stop: 09/16/20 20:59 Last Admin: 08/23/20 09:31 Dose: 325 mg Documented by: Gabapentin (Gabapentin 300 Mg Cap) 300 mg PO TID [facility] Stop: 09/16/20 20:59 Last Admin: 08/23/20 13:14 Dose: 300 mg Documented by: Glucagon (Glucagon For Inj 1 Mg Vial) 1 mg SQ UD PRN; Protocol PRN Reason: Hypoglycemia Protocol Stop: 09/16/20 20:06 Glucose (Glucose 10 Tabs/Tube) 4 - 8 tabs PO UD PRN; Protocol PRN Reason: Hypoglycemia Protocol Stop: 09/16/20 20:06 Glucose (Glucose 40% Gel 15 Gm Tube) 15 - 30 gm PO UD PRN; Protocol PRN Reason: Hypoglycemia Protocol Stop: 09/16/20 20:06 Guaifenesin (Guaifenesin 600 Mg Tabcr) 600 mg PO Q12 [facility] Stop: 09/17/20 20:59 Last Admin: 08/23/20 09:31 Dose: 600 mg Documented by: Heparin Sodium (Porcine) (Heparin Sod 5,000 Unit/0.5 Ml Vial) 5,000 units SQ Q8 [facility] Stop: 09/16/20 21:59 Last Admin: 08/23/20 13:14 Dose: 5,000 units Documented by: Ceftriaxone Sodium 2,000 mg/ (Dextrose) 70 mls @ 140 mls/hr IV Q24H [facility]; Protocol Stop: 08/25/20 16:59 Last Infusion: 08/22/20 18:00 Dose: Infused Documented by: Promethazine HCl 12.5 mg/ (Sodium Chloride) 50.5 mls @ 202 mls/hr IV Q6H PRN PRN Reason: Nausea And Vomiting Stop: 09/19/20 10:11 Last Infusion: 08/22/20 22:06 Dose: Infused Documented by: Insulin Aspart (Insulin Aspart 100 Units/Ml 3 Ml Pen) 0 units SC ACHS [facility] Stop: 09/16/20 20:59 Last Admin: 08/23/20 12:11 Dose: 3 units Documented by: Insulin Glargine (Insulin Glargine Solostar 100 Units/Ml 3 Ml Pen) 8 units SC BID [facility] Stop: 09/16/20 20:59 Last Admin: 08/23/20 09:35 Dose: 8 units Documented by: Lidocaine (Lidocaine 5% 1 Patch) 1 patch TD QAM [facility] Stop: 09/18/20 11:44 Last Admin: 08/23/20 09:31 Dose: 1 patch Documented by: Lidocaine (Lidocaine 5% 1 Patch) 1 patch TD QAM [facility] Stop: 09/18/20 16:59 Last Admin: 08/23/20 09:31 Dose: 1 patch Documented by: Magnesium Oxide (Magnesium Oxide 400 Mg Tab) 400 mg PO HS [facility] Stop: 09/16/20 20:59 Last Admin: 08/22/20 21:08 Dose: 400 mg Documented by: Metoprolol Succinate (Metoprolol Succ 25mg Ext Rel Tab) 12.5 mg PO BID [facility] Stop: 09/19/20 08:59 Last Admin: 08/23/20 09:32 Dose: 12.5 mg Documented by: Miscellaneous (Teriparatide [Forteo] 20 Mcg/Dose ~ Order Awaiting Action) 1 ea N/A QS [facility] Stop: 09/17/20 00:00 Last Admin: 08/23/20 09:30 Dose: Not Given Documented by: Miscellaneous (Carbohydrates For Hypoglycemia ) 15 - 30 gm PO UD PRN PRN Reason: Hypoglycemia Protocol Stop: 09/16/20 20:06 Miscellaneous (Remove Lidoderm Patch) 1 ea N/A DAILY@2100 [facility] Stop: 09/18/20 20:59 Last Admin: 08/22/20 22:07 Dose: 1 ea Documented by: Miscellaneous (Remove Lidoderm Patch) 1 ea N/A DAILY@2100 [facility] Stop: 09/18/20 20:59 Last Admin: 08/22/20 22:07 Dose: 1 ea Documented by: Oxcarbazepine (Oxcarbazepine 150 Mg Tablet) 300 mg PO BID [facility] Stop: 09/16/20 20:59 Last Admin: 08/23/20 09:32 Dose: 300 mg Documented by: Oxycodone HCl (Oxycodone Hcl Ir 5 Mg Tab (Immediate Release)) 5 - 10 mg PO QID PRN PRN Reason: Pain Stop: 09/02/20 20:01 Last Admin: 08/23/20 09:43 Dose: 5 mg Documented by: Pantoprazole Sodium (Pantoprazole 40 Mg Tab) 40 mg PO DAILY [facility] Stop: 09/17/20 08:59 Last Admin: 08/23/20 09:30 Dose: 40 mg Documented by: Saccharomyces Boulardii (Saccharomyces Boulardii 250 Mg Cap) 250 mg PO BID [facility] Stop: 09/16/20 20:59 Last Admin: 08/23/20 09:32 Dose: 250 mg Documented by: Vitamin D (Cholecalciferol 1,000 Units 25 Mcg Tab) 2,000 units PO QAM [facility] Stop: 09/17/20 08:59 Last Admin: 08/23/20 09:31 Dose: 2,000 units Documented by: (1) Pneumonia Laterality: bilateral Lung location: lower lobe of lung Pneumonia type: due to unspecified organism Qualified Code(s): J18.1 - Lobar pneumonia, unspecified organism (2) Acute renal failure superimposed on stage 3 chronic kidney disease Acute renal failure type: with acute tubular necrosis Qualified Code(s): N17.0 - Acute kidney failure with tubular necrosis; N18.3 - Chronic kidney disease, stage 3 (moderate)
[2020-08-23] MEDS: cefTRIAXone SODIUM 2,000 MG in DEXTROSE 5% 50 ML IV SCH (16:07)
[2020-08-23] MEDS: DOXEPIN HCL 50 MG CAPSULE PO SCH (19:36)
[2020-08-23] MEDS: ATORVASTATIN 40 MG TAB PO SCH (19:38)
[2020-08-23] MEDS: MAGNESIUM OXIDE 400 MG TAB PO SCH (19:38)
[2020-08-23] MEDS: CLOPIDOGREL BISULFATE 75 MG TAB PO SCH (19:38)
[2020-08-24] MEDS: HEPARIN SOD 5,000 UNIT/0.5 ML VIAL SQ SCH ×3 (05:45→20:15)
[2020-08-24 06:37] LABS: Basophils # (auto) 0.02 K/uL (0-0.2); Basophils % (auto) 0.3 %; Eosinophils # (auto) 0.38 K/uL (0-0.5); Hematocrit (blood only) 33.7 % (37-47); Hemoglobin 10.3 g/dL (12.0-16.0); Immature Granulocytes # (auto) 0.19 K/uL (0.00-0.02); Immature Granulocytes % (auto) 2.5 %; Lymphocytes # (auto) 1.94 K/uL (1.2-3.4); Lymphocytes % (auto) 25.5 %; Mean Corpuscular Hemoglobin 29.8 pg (25-34); Mean Corpuscular Hgb Conc 30.6 g/dL (32-36); Mean Corpuscular Volume 97.4 fL (80-100); Mean Platelet Volume 10.2 fL (7.4-10.4); Monocytes # (auto) 0.77 K/uL (0.11-0.59); Monocytes % (auto) 10.1 %; Neutrophils # (auto) 4.32 K/uL (1.4-6.5); Neutrophils % (auto) 56.6 %; Nucleated RBC # (auto) 0.03 K/uL (0-0); Nucleated RBC % (auto) 0.3 %; Platelet Count 232 K/uL (130-400); RDW Coefficient of Variation 14.1 % (11.5-14.5); RDW Standard Deviation 49.8 fL (36.4-46.3); Red Blood Count 3.46 M/uL (4.2-5.4); White Blood Count 7.62 K/uL (4.8-10.8)
[2020-08-24 07:06] LABS: Calcium 8.9 mg/dl (8.5-10.1); Creatinine Clr Calc Pharmacy 43.4 ml/min; Est GFR (African American) 49.5; Est GFR (Non-African American) 42.7; Potassium 3.7 mmol/L (3.5-5.1)
[2020-08-24] MEDS: LIDOCAINE 5% 1 PATCH TD SCH ×2 (07:56→07:57)
[2020-08-24] MEDS: oxyCODONE HCL IR 5 MG TAB (IMMEDIATE RELEASE) PO PRN ×3 (07:56→23:33)
[2020-08-24] MEDS: guaiFENesin 600 MG TABCR PO SCH ×2 (07:57→20:15)
[2020-08-24] MEDS: INSULIN GLARGINE SOLOSTAR 100 UNITS/ML 3 ML PEN SC SCH ×2 (07:57→20:24)
[2020-08-24] MEDS: DULoxetine HCL 60 MG CAP PO SCH (07:58)
[2020-08-24] MEDS: AZITHROMYCIN 250 MG TAB PO SCH (07:58)
[2020-08-24] MEDS: GABAPENTIN 300 MG CAP PO SCH ×3 (07:58→20:16)
[2020-08-24] MEDS: SACCHAROMYCES BOULARDII 250 MG CAP PO SCH ×2 (07:58→20:16)
[2020-08-24] MEDS: OXcarbazepine 150 MG TABLET PO SCH ×2 (07:59→20:15)
[2020-08-24] MEDS: METOPROLOL SUCC 25MG EXT REL TAB PO SCH ×2 (07:59→20:14)
[2020-08-24] MEDS: INSULIN ASPART 100 UNITS/ML 3 ML PEN SC SCH ×4 (07:59→20:24)
[2020-08-24] MEDS: CHOLECALCIFEROL 1,000 UNITS 25 MCG TAB PO SCH (08:00)
[2020-08-24] MEDS: PANTOprazole 40 MG TAB PO SCH (08:00)
[2020-08-24] MEDS: FERROUS SULFATE 325 MG TAB PO SCH ×2 (08:01→20:16)
[2020-08-24] MEDS: PROMETHAZINE HCL 12.5 MG in SODIUM CHLORIDE 0.9% 50 ML IV PRN (08:35)
--- NOTE | 2020-08-24 12:08 | Hospitalist Progress Note ---
Date of Service August 24, 2020 Assessment & Plan (1) Recurrent falls: Mechanical fall Evidence of fracture Get PT and OT evaluation (2) Weakness: Patient with recent recurrent falls at home. She has been feeling lightheaded/dizzy. She admits that she has not been eating or drinking well. She feels that her legs want to give out on her very easily. 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 Clinically a lot better today and was advised to participate in PT and OT (3) Pneumonia: Chest x-ray finding supports pneumonia involving the right base Getting intravenous ceftriaxone and oral azithromycin Clinically better without any fever and/or chills Blood cultures have been negative and Urine culture is growing 3 types of organisms We will continue current antibiotics for now Denies any respiratory symptoms No more respiratory symptoms (4) COPD (chronic obstructive pulmonary disease): No evidence of acute exacerbation (5) Obesity hypoventilation syndrome: (6) Asthma: No acute shortness of breath She is saturating well on room air. CALI and obesity hypoventilation syndrome Patient does not use a CPAP at home despite history of CALI and obesity hypove ntilation syndrome. O2 PRN to maintain SaO2 >90% (7) Acute renal failure superimposed on stage 3 chronic kidney disease: Lisinopril is on holdCreatinine on admission was 2.49 and has been improving since then Creatinine 1.56 as of 08/20/2020 Creatinine is minimally improved at 1.50 as of 08/22/2020 Advised to drink more fluid (8) HTN (hypertension): (9) Renal calculi: Patient's creatinine up to 2.4 from baseline of 1.4. Will need to closely monitor. Seems likely to be secondary to poor PO intake. CT of the abdomen pelvis showed Left-sided nephrolithiasis with stable collecting system dilatation. This could be the cause of her occasional pain but no colic (10) DM type 2 (diabetes mellitus, type 2): Insulin sliding scale. (11) DVT prophylaxis: Heparin Q8h Admission and Anticipated Discharge Date Admission Date: August 17, 2020 Subjective The patient was seen and examined in medical telemetry unit She has been complaining of nausea and remains extremely weak and lethargic Denies any fever and/or chills No shortness of breath at rest 08/21/2020 The patient was seen and examined in medical telemetry unit He remains stable but complains to headache and back pain Denies any shortness of breath, cough or chest pain Denies any nausea and/or vomiting 08/22/2020 The patient was seen and examined in medical telemetry unit He has been feeling a lot better today Denies any headache and/or back pain and her breathing is improved She was advised to participate in physical and occupational therapy 08/23/2020 The patient was seen and examined in medical telemetry unit She has been feeling a lot better and denies any cough and/or shortness of breath Her pain seems to be much improved too 08/24/2020 The seen and examined in medical telemetry unit She has been feeling great today and complains to have some nonspecific numbness involving the upper chest on the right side Also has some nausea without vomiting-worried about CAT scan findings on eighth of this month which was:Left-sided nephrolithiasis with stable collecting system dilatation. Review of Systems Review of Systems: All systems reviewed and are unremarkable except as noted below Constitutional: + weakness Respiratory: + cough (occasional); no dyspnea Musculoskeletal: + back pain Neurologic: + generalized weakness Physical Exam Physical Exam: Lying in bed comfortably Constitutional: well developed, well nourished, + acute distress (Due to back pain and nausea) and + obese Eyes: PERRL, conjunctivae normal, anicteric sclerae ENMT: external ear and nose normal, oropharynx normal Neck: trachea midline, no thyromegaly Respiratory: no respiratory distress Auscultation: lungs clear to auscultation bilaterally and + diminished lung sounds (At the right base with crackles) Cardiovascular: Rate/Rhythm: regular rate and regular rhythm Heart Sounds: no murmur Extremities: + edema (Trace to 1+ edema bilaterally) Gastrointestinal (Abdomen): Inspection/Auscultation: normal bowel sounds; abdomen not distended Percussion/Palpation: abdomen soft; abdomen nontender Musculoskeletal: No acute arthritis in any joint Neurologic: Alert, awake and oriented x3. Generally weak but no focal neuro deficit Psychiatric: A+Ox3, euthymic affect Lymphatic: no cervical or axillary lymphadenopathy Results & Data Results & Data ([facility]) Vital Signs (Past 12 Hours) Vital Signs Temp Pulse Pulse Resp BP Pulse Ox 08/24/20 11:31 36.6 C 79 18 101/86 94 08/24/20 06:52 36.7 C 83 18 109/73 91 08/24/20 04:00 36.8 C 76 16 93/61 L 91 08/24/20 02:23 82 Laboratory Results Short CBC 08/24/20 Range/Units 06:18 WBC 7.62 (4.8-10.8) K/uL Hgb 10.3 L (12.0-16.0) g/dL Hct 33.7 L (37-47) % Plt Count 232 (130-400) K/uL BMP 08/24/20 06:18 Sodium 140 Potassium 3.7 Chloride 109 H Carbon Dioxide 26 BUN 17 Creatinine 1.30 H Glucose 96 Calcium 8.9 Medications Administered Current Inpatient Medications Acetaminophen (Acetaminophen 325 Mg Tab) 650 mg PO Q4H PRN PRN Reason: pain/fever Stop: 09/16/20 20:06 Last Admin: 08/21/20 16:15 Dose: 650 mg Documented by: Atorvastatin Calcium (Atorvastatin 40 Mg Tab) 40 mg PO QPM [facility] Stop: 09/16/20 20:59 Last Admin: 08/23/20 19:38 Dose: 40 mg Documented by: Azithromycin (Azithromycin 250 Mg Tab) 250 mg PO QAM [facility] Stop: 08/25/20 08:59 Last Admin: 08/24/20 07:58 Dose: 250 mg Documented by: Clopidogrel Bisulfate (Clopidogrel Bisulfate 75 Mg Tab) 75 mg PO QPM [facility] Stop: 09/16/20 20:59 Last Admin: 08/23/20 19:38 Dose: 75 mg Documented by: Dextrose (Dextrose 50% 50 Ml Syringe) 25 - 50 ml IV UD PRN; Protocol PRN Reason: Hypoglycemia Protocol Stop: 09/16/20 20:06 Doxepin HCl (Doxepin Hcl 50 Mg Capsule) 100 mg PO HS [facility] Stop: 09/16/20 20:59 Last Admin: 08/23/20 19:36 Dose: 100 mg Documented by: Duloxetine HCl (Duloxetine Hcl 60 Mg Cap) 60 mg PO QAM [facility] Stop: 09/17/20 08:59 Last Admin: 08/24/20 07:58 Dose: 60 mg Documented by: Ferrous Sulfate (Ferrous Sulfate 325 Mg Tab) 325 mg PO BID [facility] Stop: 09/16/20 20:59 Last Admin: 08/24/20 08:01 Dose: 325 mg Documented by: Gabapentin (Gabapentin 300 Mg Cap) 300 mg PO TID [facility] Stop: 09/16/20 20:59 Last Admin: 08/24/20 07:58 Dose: 300 mg Documented by: Glucagon (Glucagon For Inj 1 Mg Vial) 1 mg SQ UD PRN; Protocol PRN Reason: Hypoglycemia Protocol Stop: 09/16/20 20:06 Glucose (Glucose 10 Tabs/Tube) 4 - 8 tabs PO UD PRN; Protocol PRN Reason: Hypoglycemia Protocol Stop: 09/16/20 20:06 Glucose (Glucose 40% Gel 15 Gm Tube) 15 - 30 gm PO UD PRN; Protocol PRN Reason: Hypoglycemia Protocol Stop: 09/16/20 20:06 Guaifenesin (Guaifenesin 600 Mg Tabcr) 600 mg PO Q12 [facility] Stop: 09/17/20 20:59 Last Admin: 08/24/20 07:57 Dose: 600 mg Documented by: Heparin Sodium (Porcine) (Heparin Sod 5,000 Unit/0.5 Ml Vial) 5,000 units SQ Q8 [facility] Stop: 09/16/20 21:59 Last Admin: 08/24/20 05:45 Dose: 5,000 units Documented by: Ceftriaxone Sodium 2,000 mg/ (Dextrose) 70 mls @ 140 mls/hr IV Q24H [facility]; Protocol Stop: 08/25/20 16:59 Last Infusion: 08/23/20 16:54 Dose: Infused Documented by: Promethazine HCl 12.5 mg/ (Sodium Chloride) 50.5 mls @ 202 mls/hr IV Q6H PRN PRN Reason: Nausea And Vomiting Stop: 09/19/20 10:11 Last Infusion: 08/24/20 08:51 Dose: Infused Documented by: Insulin Aspart (Insulin Aspart 100 Units/Ml 3 Ml Pen) 0 units SC ACHS [facility] Stop: 09/16/20 20:59 Last Admin: 08/24/20 11:52 Dose: 4 units Documented by: Insulin Glargine (Insulin Glargine Solostar 100 Units/Ml 3 Ml Pen) 8 units SC BID [facility] Stop: 09/16/20 20:59 Last Admin: 08/24/20 07:57 Dose: 8 units Documented by: Lidocaine (Lidocaine 5% 1 Patch) 1 patch TD QAM [facility] Stop: 09/18/20 11:44 Last Admin: 08/24/20 07:56 Dose: 1 patch Documented by: Lidocaine (Lidocaine 5% 1 Patch) 1 patch TD QAM [facility] Stop: 09/18/20 16:59 Last Admin: 08/24/20 07:57 Dose: 1 patch Documented by: Magnesium Oxide (Magnesium Oxide 400 Mg Tab) 400 mg PO HS [facility] Stop: 09/16/20 20:59 Last Admin: 08/23/20 19:38 Dose: 400 mg Documented by: Metoprolol Succinate (Metoprolol Succ 25mg Ext Rel Tab) 12.5 mg PO BID [facility] Stop: 09/19/20 08:59 Last Admin: 08/24/20 07:59 Dose: 12.5 mg Documented by: Miscellaneous (Teriparatide [Forteo] 20 Mcg/Dose ~ Order Awaiting Action) 1 ea N/A QS [facility] Stop: 09/17/20 00:00 Last Admin: 08/24/20 07:59 Dose: Not Given Documented by: Miscellaneous (Carbohydrates For Hypoglycemia ) 15 - 30 gm PO UD PRN PRN Reason: Hypoglycemia Protocol Stop: 09/16/20 20:06 Miscellaneous (Remove Lidoderm Patch) 1 ea N/A DAILY@2100 [facility] Stop: 09/18/20 20:59 Last Admin: 08/23/20 19:38 Dose: 1 ea Documented by: Miscellaneous (Remove Lidoderm Patch) 1 ea N/A DAILY@2100 [facility] Stop: 09/18/20 20:59 Last Admin: 08/23/20 19:37 Dose: 1 ea Documented by: Oxcarbazepine (Oxcarbazepine 150 Mg Tablet) 300 mg PO BID [facility] Stop: 09/16/20 20:59 Last Admin: 08/24/20 07:59 Dose: 300 mg Documented by: Oxycodone HCl (Oxycodone Hcl Ir 5 Mg Tab (Immediate Release)) 5 - 10 mg PO QID PRN PRN Reason: Pain Stop: 09/02/20 20:01 Last Admin: 08/24/20 07:56 Dose: 10 mg Documented by: Pantoprazole Sodium (Pantoprazole 40 Mg Tab) 40 mg PO DAILY [facility] Stop: 09/17/20 08:59 Last Admin: 08/24/20 08:00 Dose: 40 mg Documented by: Saccharomyces Boulardii (Saccharomyces Boulardii 250 Mg Cap) 250 mg PO BID [facility] Stop: 09/16/20 20:59 Last Admin: 08/24/20 07:58 Dose: 250 mg Documented by: Vitamin D (Cholecalciferol 1,000 Units 25 Mcg Tab) 2,000 units PO QAM [facility] Stop: 09/17/20 08:59 Last Admin: 08/24/20 08:00 Dose: 2,000 units Documented by: (1) Pneumonia Laterality: bilateral Lung location: lower lobe of lung Pneumonia type: due to unspecified organism Qualified Code(s): J18.1 - Lobar pneumonia, unspecified organism (2) Acute renal failure superimposed on stage 3 chronic kidney disease Acute renal failure type: with acute tubular necrosis Qualified Code(s): N17.0 - Acute kidney failure with tubular necrosis; N18.3 - Chronic kidney disease, stage 3 (moderate)
[2020-08-24] MEDS: cefTRIAXone SODIUM 2,000 MG in DEXTROSE 5% 50 ML IV SCH (16:13)
[2020-08-24] MEDS: MAGNESIUM OXIDE 400 MG TAB PO SCH (20:15)
[2020-08-24] MEDS: ATORVASTATIN 40 MG TAB PO SCH (20:15)
[2020-08-24] MEDS: CLOPIDOGREL BISULFATE 75 MG TAB PO SCH (20:16)
[2020-08-24] MEDS: DOXEPIN HCL 50 MG CAPSULE PO SCH (20:16)
[2020-08-25] MEDS: HEPARIN SOD 5,000 UNIT/0.5 ML VIAL SQ SCH ×3 (05:04→21:23)
[2020-08-25] MEDS: PROMETHAZINE HCL 12.5 MG in SODIUM CHLORIDE 0.9% 50 ML IV PRN (08:51)
[2020-08-25] MEDS: INSULIN ASPART 100 UNITS/ML 3 ML PEN SC SCH ×4 (08:51→21:11)
[2020-08-25] MEDS: FERROUS SULFATE 325 MG TAB PO SCH ×2 (08:53→21:19)
[2020-08-25] MEDS: DULoxetine HCL 60 MG CAP PO SCH (08:53)
[2020-08-25] MEDS: INSULIN GLARGINE SOLOSTAR 100 UNITS/ML 3 ML PEN SC SCH ×2 (08:53→21:23)
[2020-08-25] MEDS: LIDOCAINE 5% 1 PATCH TD SCH ×2 (08:54)
[2020-08-25] MEDS: SACCHAROMYCES BOULARDII 250 MG CAP PO SCH ×2 (08:54→21:20)
[2020-08-25] MEDS ORDERED: ALUMINUM/MAGNESIUM SUSP 30 ML UDC PO PRN (08:55)
[2020-08-25] MEDS: GABAPENTIN 300 MG CAP PO SCH ×3 (08:55→21:22)
[2020-08-25] MEDS: PANTOprazole 40 MG TAB PO SCH (08:55)
[2020-08-25] MEDS: guaiFENesin 600 MG TABCR PO SCH ×2 (08:55→21:18)
[2020-08-25] MEDS: METOPROLOL SUCC 25MG EXT REL TAB PO SCH ×2 (08:56→21:15)
[2020-08-25] MEDS: OXcarbazepine 150 MG TABLET PO SCH ×2 (08:56→21:21)
[2020-08-25] MEDS: CHOLECALCIFEROL 1,000 UNITS 25 MCG TAB PO SCH (08:56)
--- NOTE | 2020-08-25 10:01 | CT Scan Report ---
CT SCAN OF THE ABDOMEN AND PELVIS WITHOUT IV CONTRAST CLINICAL HISTORY: Generalized abdominal pain. COMPARISON STUDY: Abdominal CT dated 08/17/2020. TECHNIQUE: CT scan of the abdomen and pelvis is performed from the lung bases to the proximal femora. Images are reviewed in the axial, sagittal, and coronal planes. IV contrast was not administered for this examination. Note that the examination is suboptimal without oral and IV contrast. A dose lower ing technique was utilized adhering to the principles of ALARA. CT DOSE: 1303.24 mGy.cm FINDINGS: Lung bases: The heart is normal in size and without pericardial effusion. Calcified granulomas are se en at the left lung base. A 4 mm noncalcified pulmonary nodule in the right lower lobe seen on image #1 is unchanged. There is bibasilar scarring/atelectasis. No airspace consolidation is seen typical f or pneumonia and there is no pleural effusion. There is a moderate hiatal hernia. Liver: The unenhanced liver is normal in size, contour, and attenuation. There is no intrahepatic george iary ductal dilatation. Gallbladder: Surgically absent noting clips in the gallbladder fossa. Spleen: Normal in size and attenuation. Pancreas: The unenhanced pancreas is atrophic and grossly unremarkable. Adrenal glands: Unremarkable. Kidneys: There is asymmetric cortical atrophy of the left kidney as compared to the right. An externa l pelvis is seen on the left. There is no hydronephrosis. There is a 2 cm staghorn calculus identifie d in the left renal pelvis as seen on image #178. There are at least 3 additional smaller nonobstruct ing left renal calculi. There is urothelial thickening identified in the left renal pelvis with surro unding inflammation. There are at least 3 nonobstructing right renal calculi which measure up to 4 mm . No ureteral stone is seen. An 8 cm cyst is seen in the upper pole of the left kidney. Additional méndez bcentimeter cortical hypodensities also likely represent cysts but are too small for definitive rip cterization.. Abdominal vasculature: The abdominal aorta is normal in course and caliber noting scattered foci of a therosclerotic calcification. Bowel: A supraumbilical hernia contains a nonobstructed segment of small bowel as seen on image #209. A ventral hernia in the pelvis also contains small bowel is seen on image #354. There is postoperati ve change from subtotal colectomy with ileosigmoid anastomosis. No bowel obstruction is seen. Peritoneum: There is no intraperitoneal free air or abdominal ascites. Foci of induration within the ventral abdominal soft tissues are likely related to subcutaneous injections. Lymphadenopathy: None. Pelvic viscera: The bladder is normal as visualized. The uterus is surgically absent. No adnexal lesi on is seen. Skeletal structures: The skeletal structures are osteopenic. There is moderate lumbosacral spondylosi s. No lytic or blastic lesions are seen. There are healed left-sided rib fractures. IMPRESSION: 1. There is a 2 cm staghorn calculus identified in the left renal pelvis. There is associated urothel ial thickening with surrounding inflammation. This may be related to chronic inflammation/the presenc e of a staghorn calculus. Correlate clinically Kanchan urinalysis for evidence of superimposed urinary tract infection. 2. Additional bilateral nonobstructing renal calculi as above. No hydronephrosis is seen. 3. Moderate hiatal hernia. 4. There are at least 2 ventral hernias which contain nonobstructed segments of small bowel. No bowel obstruction is evident. 5. There is postoperative change from subtotal colectomy with ileosigmoid anastomosis. 6. Additional findings as above. ACT 112: Negative or not required by law. Electronically signed by: Caesar Yoon M.D. 08/25/2020 10:00 AM
--- NOTE | 2020-08-25 11:11 | Hospitalist Progress Note ---
Date of Service August 25, 2020 Assessment & Plan (1) Recurrent falls: Mechanical fall Evidence of fracture Get PT and OT evaluation (2) Weakness: Patient with recent recurrent falls at home. She has been feeling lightheaded/dizzy. She admits that she has not been eating or drinking well. She feels that her legs want to give out on her very easily. Feel that her lightheadedness/dizziness could be multifactorial given probable infection, multiple [employer] medications, dehydration with acute renal failure, and PT and OT evaluation Fall precautions. Clinically a lot better today and was advised to participate in PT and OT PT recommended rehab-she has been waiting for that (3) Pneumonia: Chest x-ray finding supports pneumonia involving the right base Getting intravenous ceftriaxone and oral azithromycin Clinically better without any fever and/or chills Blood cultures have been negative and Urine culture is growing 3 types of organisms We will continue current antibiotics for now Denies any respiratory symptoms No more respiratory symptoms We will finish the 10 days course of antibiotic Lower abdominal discomfort Repeat CT scan remains unremarkable She is medically stable to be discharged (4) COPD (chronic obstructive pulmonary disease): No evidence of acute exacerbation (5) Obesity hypoventilation syndrome: (6) Asthma: No acute shortness of breath She is saturating well on room air. CALI and obesity hypoventilation syndrome Patient does not use a CPAP at home despite history of CALI and obesity h ypoventilation syndrome. O2 PRN to maintain SaO2 >90% (7) Acute renal failure superimposed on stage 3 chronic kidney disease: Lisinopril is on holdCreatinine on admission was 2.49 and has been improving since then Creatinine 1.56 as of 08/20/2020 Creatinine is minimally improved at 1.50 as of 08/22/2020 Advised to drink more fluid (8) HTN (hypertension): (9) Renal calculi: Patient's creatinine up to 2.4 from baseline of 1.4. Will need to closely monitor. Seems likely to be secondary to poor PO intake. CT of the abdomen pelvis showed Left-sided nephrolithiasis with stable collecting system dilatation. The abdomen and pelvis showed 2 cm staghorn calculus in the left renal pelvis with nephrolithiasis as before without any obstruction and/or diverticulitis She can be discharged today (10) DM type 2 (diabetes mellitus, type 2): Insulin sliding scale. (11) DVT prophylaxis: Heparin Q8h Admission and Anticipated Discharge Date Admission Date: August 17, 2020 Subjective The patient was seen and examined in medical telemetry unit She has been complaining of nausea and remains extremely weak and lethargic Denies any fever and/or chills No shortness of breath at rest 08/21/2020 The patient was seen and examined in medical telemetry unit He remains stable but complains to headache and back pain Denies any shortness of breath, cough or chest pain Denies any nausea and/or vomiting 08/22/2020 The patient was seen and examined in medical telemetry unit He has been feeling a lot better today Denies any headache and/or back pain and her breathing is improved She was advised to participate in physical and occupational therapy 08/23/2020 The patient was seen and examined in medical telemetry unit She has been feeling a lot better and denies any cough and/or shortness of breath Her pain seems to be much improved too 08/24/2020 The seen and examined in medical telemetry unit She has been feeling great today and complains to have some nonspecific numbness involving the upper chest on the right side Also has some nausea without vomiting-worried about CAT scan findings on eighth of this month which was:Left-sided nephrolithiasis with stable collecting system dilatation. 08/25/2020 The patient was seen and examined in medical telemetry unit She complains today of some nonspecific pain in the lower abdomen without any nausea and or vomiting She denies any fever and/or chills Denies any cough and/or shortness of breath Review of Systems Review of Systems: All systems reviewed and are unremarkable except as noted below Constitutional: + weakness Respiratory: no cough (occasional) and no dyspnea Musculoskeletal: + back pain Neurologic: + generalized weakness Physical Exam Physical Exam: Lying in bed comfortably Constitutional: well developed, well nourished, + acute distress (Due to back pain and nausea) and + obese Eyes: PERRL, conjunctivae normal, anicteric sclerae ENMT: external ear and nose normal, oropharynx normal Neck: trachea midline, no thyromegaly Respiratory: no respiratory distress Auscultation: lungs clear to auscultation bilaterally and + diminished lung sounds (At the right base with crackles) Cardiovascular: Rate/Rhythm: regular rate and regular rhythm Heart Sounds: no murmur Extremities: + edema (Trace to 1+ edema bilaterally) Gastrointestinal (Abdomen): Inspection/Auscultation: normal bowel sounds; abdomen not distended Percussion/Palpation: + abdomen tender (Minimal tenderness in left lower quadrant) and abdomen soft No tenderness in renal angles Musculoskeletal: No acute arthritis in any joint Psychiatric: A+Ox3, euthymic affect Lymphatic: no cervical or axillary lymphadenopathy Results & Data Results & Data ([facility]) Vital Signs (Past 12 Hours) Vital Signs Temp Pulse Pulse Resp BP Pulse Ox 08/25/20 07:32 36.7 C 75 18 96/65 L 91 08/25/20 07:30 72 08/25/20 02:42 36.7 C 81 18 116/61 93 Medications Administered Current Inpatient Medications Acetaminophen (Acetaminophen 325 Mg Tab) 650 mg PO Q4H PRN PRN Reason: pain/fever Stop: 09/16/20 20:06 Last Admin: 08/21/20 16:15 Dose: 650 mg Documented by: Al Hydrox/Mg Hydrox/Simethicone (Aluminum/Magnesium Susp 30 Ml Udc) 30 ml PO Q6H PRN PRN Reason: Dyspepsia Stop: 09/24/20 08:54 Atorvastatin Calcium (Atorvastatin 40 Mg Tab) 40 mg PO QPM MARLA Stop: 09/16/20 20:59 Last Admin: 08/24/20 20:15 Dose: 40 mg Documented by: Clopidogrel Bisulfate (Clopidogrel Bisulfate 75 Mg Tab) 75 mg PO QPM MARLA Stop: 09/16/20 20:59 Last Admin: 08/24/20 20:16 Dose: 75 mg Documented by: Dextrose (Dextrose 50% 50 Ml Syringe) 25 - 50 ml IV UD PRN; Protocol PRN Reason: Hypoglycemia Protocol Stop: 09/16/20 20:06 Doxepin HCl (Doxepin Hcl 50 Mg Capsule) 100 mg PO HS MARLA Stop: 09/16/20 20:59 Last Admin: 08/24/20 20:16 Dose: 100 mg Documented by: Duloxetine HCl (Duloxetine Hcl 60 Mg Cap) 60 mg PO QAM MARLA Stop: 09/17/20 08:59 Last Admin: 08/25/20 08:53 Dose: 60 mg Documented by: Ferrous Sulfate (Ferrous Sulfate 325 Mg Tab) 325 mg PO BID MARLA Stop: 09/16/20 20:59 Last Admin: 08/25/20 08:53 Dose: 325 mg Documented by: Gabapentin (Gabapentin 300 Mg Cap) 300 mg PO TID [facility] Stop: 09/16/20 20:59 Last Admin: 08/25/20 08:55 Dose: 300 mg Documented by: Glucagon (Glucagon For Inj 1 Mg Vial) 1 mg SQ UD PRN; Protocol PRN Reason: Hypoglycemia Protocol Stop: 09/16/20 20:06 Glucose (Glucose 10 Tabs/Tube) 4 - 8 tabs PO UD PRN; Protocol PRN Reason: Hypoglycemia Protocol Stop: 09/16/20 20:06 Glucose (Glucose 40% Gel 15 Gm Tube) 15 - 30 gm PO UD PRN; Protocol PRN Reason: Hypoglycemia Protocol Stop: 09/16/20 20:06 Guaifenesin (Guaifenesin 600 Mg Tabcr) 600 mg PO Q12 MARLA Stop: 09/17/20 20:59 Last Admin: 08/25/20 08:55 Dose: 600 mg Documented by: Heparin Sodium (Porcine) (Heparin Sod 5,000 Unit/0.5 Ml Vial) 5,000 units SQ Q8 MARLA Stop: 09/16/20 21:59 Last Admin: 08/25/20 05:04 Dose: 5,000 units Documented by: Ceftriaxone Sodium 2,000 mg/ (Dextrose) 70 mls @ 140 mls/hr IV Q24H MARLA; Protocol Stop: 08/25/20 16:59 Last Infusion: 08/24/20 17:12 Dose: Infused Documented by: Promethazine HCl 12.5 mg/ (Sodium Chloride) 50.5 mls @ 202 mls/hr IV Q6H PRN PRN Reason: Nausea And Vomiting Stop: 09/19/20 10:11 Last Infusion: 08/25/20 09:07 Dose: Infused Documented by: Insulin Aspart (Insulin Aspart 100 Units/Ml 3 Ml Pen) 0 units SC ACHS [facility] Stop: 09/16/20 20:59 Last Admin: 08/25/20 08:51 Dose: 2 units Documented by: Insulin Glargine (Insulin Glargine Solostar 100 Units/Ml 3 Ml Pen) 8 units SC BID [facility] Stop: 09/16/20 20:59 Last Admin: 08/25/20 08:53 Dose: 8 units Documented by: Lidocaine (Lidocaine 5% 1 Patch) 1 patch TD QAM [facility] Stop: 09/18/20 11:44 Last Admin: 08/25/20 08:54 Dose: 1 patch Documented by: Lidocaine (Lidocaine 5% 1 Patch) 1 patch TD QAM [facility] Stop: 09/18/20 16:59 Last Admin: 08/25/20 08:54 Dose: 1 patch Documented by: Magnesium Oxide (Magnesium Oxide 400 Mg Tab) 400 mg PO HS [facility] Stop: 09/16/20 20:59 Last Admin: 08/24/20 20:15 Dose: 400 mg Documented by: Metoprolol Succinate (Metoprolol Succ 25mg Ext Rel Tab) 12.5 mg PO BID MARLA Stop: 09/19/20 08:59 Last Admin: 08/25/20 08:56 Dose: Not Given Documented by: Miscellaneous (Teriparatide [Forteo] 20 Mcg/Dose ~ Order Awaiting Action) 1 ea N/A QS [facility] Stop: 09/17/20 00:00 Last Admin: 08/25/20 08:47 Dose: Not Given Documented by: Miscellaneous (Carbohydrates For Hypoglycemia ) 15 - 30 gm PO UD PRN PRN Reason: Hypoglycemia Protocol Stop: 09/16/20 20:06 Miscellaneous (Remove Lidoderm Patch) 1 ea N/A DAILY@2100 [facility] Stop: 09/18/20 20:59 Last Admin: 08/24/20 20:15 Dose: 1 ea Documented by: Miscellaneous (Remove Lidoderm Patch) 1 ea N/A DAILY@2099 [facility] Stop: 09/18/20 20:59 Last Admin: 08/24/20 20:15 Dose: 1 ea Documented by: Oxcarbazepine (Oxcarbazepine 150 Mg Tablet) 300 mg PO BID [facility] Stop: 09/16/20 20:59 Last Admin: 08/25/20 08:56 Dose: 300 mg Documented by: Oxycodone HCl (Oxycodone Hcl Ir 5 Mg Tab (Immediate Release)) 5 - 10 mg PO QID PRN PRN Reason: Pain Stop: 09/02/20 20:01 Last Admin: 08/24/20 23:33 Dose: 5 mg Documented by: Pantoprazole Sodium (Pantoprazole 40 Mg Tab) 40 mg PO DAILY [facility] Stop: 09/17/20 08:59 Last Admin: 08/25/20 08:55 Dose: 40 mg Documented by: Saccharomyces Boulardii (Saccharomyces Boulardii 250 Mg Cap) 250 mg PO BID [facility] Stop: 09/16/20 20:59 Last Admin: 08/25/20 08:54 Dose: 250 mg Documented by: Vitamin D (Cholecalciferol 1,000 Units 25 Mcg Tab) 2,000 units PO QAM [facility] Stop: 09/17/20 08:59 Last Admin: 08/25/20 08:56 Dose: 2,000 units Documented by: (1) Pneumonia Laterality: bilateral Lung location: lower lobe of lung Pneumonia type: due to unspecified organism Qualified Code(s): J18.1 - Lobar pneumonia, unspecified organism (2) Acute renal failure superimposed on stage 3 chronic kidney disease Acute renal failure type: with acute tubular necrosis Qualified Code(s): N17.0 - Acute kidney failure with tubular necrosis; N18.3 - Chronic kidney disease, stage 3 (moderate)
[2020-08-25] MEDS: oxyCODONE HCL IR 5 MG TAB (IMMEDIATE RELEASE) PO PRN ×2 (12:04→18:19)
[2020-08-25] MEDS: ACETAMINOPHEN 325 MG TAB PO PRN (16:52)
[2020-08-25] MEDS: cefUROXime axetil 500 MG TAB PO SCH (21:18)
[2020-08-25] MEDS: ATORVASTATIN 40 MG TAB PO SCH (21:18)
[2020-08-25] MEDS: MAGNESIUM OXIDE 400 MG TAB PO SCH (21:19)
[2020-08-25] MEDS: CLOPIDOGREL BISULFATE 75 MG TAB PO SCH (21:21)
[2020-08-25] MEDS: DOXEPIN HCL 50 MG CAPSULE PO SCH (21:53)
[2020-08-26] MEDS: oxyCODONE HCL IR 5 MG TAB (IMMEDIATE RELEASE) PO PRN ×2 (00:14→08:40)
[2020-08-26] MEDS: HEPARIN SOD 5,000 UNIT/0.5 ML VIAL SQ SCH (06:37)
[2020-08-26 07:51] LABS: Basophils # (auto) 0.02 K/uL (0-0.2); Basophils % (auto) 0.3 %; Eosinophils # (auto) 0.39 K/uL (0-0.5); Eosinophils % (auto) 5.6 %; Hematocrit (blood only) 33.3 % (37-47); Immature Granulocytes # (auto) 0.17 K/uL (0.00-0.02); Immature Granulocytes % (auto) 2.4 %; Lymphocytes # (auto) 2.01 K/uL (1.2-3.4); Lymphocytes % (auto) 28.6 %; Mean Corpuscular Hemoglobin 29.7 pg (25-34); Mean Corpuscular Volume 98.8 fL (80-100); Mean Platelet Volume 10.2 fL (7.4-10.4); Monocytes # (auto) 0.71 K/uL (0.11-0.59); Monocytes % (auto) 10.1 %; Neutrophils # (auto) 3.72 K/uL (1.4-6.5); Platelet Count 225 K/uL (130-400); RDW Coefficient of Variation 14.2 % (11.5-14.5); RDW Standard Deviation 50.7 fL (36.4-46.3); Red Blood Count 3.37 M/uL (4.2-5.4); White Blood Count 7.02 K/uL (4.8-10.8)
[2020-08-26 08:23] LABS: BUN Creatinine Ratio 14.1 (10-20); Calcium 9.3 mg/dl (8.5-10.1); Creatinine Clr Calc Pharmacy 38.7 ml/min; Est GFR (African American) 42.3; Est GFR (Non-African American) 36.5; Potassium 3.8 mmol/L (3.5-5.1)
[2020-08-26] MEDS: INSULIN ASPART 100 UNITS/ML 3 ML PEN SC SCH ×2 (08:24→12:18)
[2020-08-26] MEDS: INSULIN GLARGINE SOLOSTAR 100 UNITS/ML 3 ML PEN SC SCH (08:25)
[2020-08-26] MEDS: METOPROLOL SUCC 25MG EXT REL TAB PO SCH (08:26)
[2020-08-26] MEDS: LIDOCAINE 5% 1 PATCH TD SCH ×2 (08:26)
[2020-08-26] MEDS: cefUROXime axetil 500 MG TAB PO SCH (08:26)
[2020-08-26] MEDS: OXcarbazepine 150 MG TABLET PO SCH (08:27)
[2020-08-26] MEDS: DULoxetine HCL 60 MG CAP PO SCH (08:27)
[2020-08-26] MEDS: CHOLECALCIFEROL 1,000 UNITS 25 MCG TAB PO SCH (08:27)
[2020-08-26] MEDS: FERROUS SULFATE 325 MG TAB PO SCH (08:27)
[2020-08-26] MEDS: guaiFENesin 600 MG TABCR PO SCH (08:27)
[2020-08-26] MEDS: GABAPENTIN 300 MG CAP PO SCH (08:27)
[2020-08-26] MEDS: PANTOprazole 40 MG TAB PO SCH (08:27)
[2020-08-26] MEDS: SACCHAROMYCES BOULARDII 250 MG CAP PO SCH (08:27)
[2020-08-26] MEDS: PROMETHAZINE HCL 12.5 MG in SODIUM CHLORIDE 0.9% 50 ML IV PRN (08:43)
--- NOTE | 2020-08-26 10:31 | Hospitalist Progress Note ---
Date of Service August 26, 2020 Assessment & Plan (1) Recurrent falls: Mechanical fall Evidence of fracture Get PT and OT evaluation-recommended home (2) Weakness: Patient with recent recurrent falls at home. She has been feeling lightheaded/dizzy. She admits that she has not been eating or drinking well. She feels that her legs want to give out on her very easily. Feel that her lightheadedness/dizziness could be multifactorial given probable infection, multiple [employer] medications, dehydration with acute renal failure, and PT and OT evaluation Fall precautions. Clinically a lot better today and was advised to participate in PT and OT PT recommended home (3) Pneumonia: Chest x-ray finding supports pneumonia involving the right base Getting intravenous ceftriaxone and oral azithromycin Clinically better without any fever and/or chills Blood cultures have been negative and Urine culture is growing 3 types of organisms We will continue current antibiotics for now Denies any respiratory symptoms No more respiratory symptoms Antibiotic courses finished Lower abdominal discomfort Repeat CT scan remains unremarkable She is medically stable to be discharged Lower abdominal pain is resolved (4) COPD (chronic obstructive pulmonary disease): No evidence of acute exacerbation (5) Obesity hypoventilation syndrome: (6) Asthma: No acute shortness of breath She is saturating well on room air. CALI and obesity hypoventilation syndrome Patient does not use a CPAP at home despite history of CALI and obesity h ypoventilation syndrome. O2 PRN to maintain SaO2 >90% (7) Acute renal failure superimposed on stage 3 chronic kidney disease: Lisinopril is on holdCreatinine on admission was 2.49 and has been improving since then Creatinine 1.56 as of 08/20/2020 Creatinine is minimally improved at 1.50 as of 08/22/2020 Advised to drink more fluid (8) HTN (hypertension): The lower side of normal (9) Renal calculi: Patient's creatinine up to 2.4 from baseline of 1.4. Will need to closely monitor. Seems likely to be secondary to poor PO intake. CT of the abdomen pelvis showed Left-sided nephrolithiasis with stable collecting system dilatation. The abdomen and pelvis showed 2 cm staghorn calculus in the left renal pelvis with nephrolithiasis as before without any obstruction and/or diverticulitis She will be discharged today (10) DM type 2 (diabetes mellitus, type 2): Insulin sliding scale. (11) DVT prophylaxis: Heparin Q8h Admission and Anticipated Discharge Date Admission Date: August 17, 2020 Subjective The patient was seen and examined in medical telemetry unit She has been complaining of nausea and remains extremely weak and lethargic Denies any fever and/or chills No shortness of breath at rest 08/21/2020 The patient was seen and examined in medical telemetry unit He remains stable but complains to headache and back pain Denies any shortness of breath, cough or chest pain Denies any nausea and/or vomiting 08/22/2020 The patient was seen and examined in medical telemetry unit He has been feeling a lot better today Denies any headache and/or back pain and her breathing is improved She was advised to participate in physical and occupational therapy 08/23/2020 The patient was seen and examined in medical telemetry unit She has been feeling a lot better and denies any cough and/or shortness of breath Her pain seems to be much improved too 08/24/2020 The seen and examined in medical telemetry unit She has been feeling great today and complains to have some nonspecific numbness involving the upper chest on the right side Also has some nausea without vomiting-worried about CAT scan findings on eighth of this month which was:Left-sided nephrolithiasis with stable collecting system dilatation. 08/25/2020 The patient was seen and examined in medical telemetry unit She complains today of some nonspecific pain in the lower abdomen without any nausea and or vomiting She denies any fever and/or chills Denies any cough and/or shortness of breath 08/26/2020 The patient was seen and examined in medical telemetry unit She has been feeling a lot better today and is ready to be discharged Denies any significant symptoms Review of Systems Review of Systems: All systems reviewed and are unremarkable except as noted below Constitutional: + weakness Musculoskeletal: + back pain Neurologic: + generalized weakness Physical Exam Physical Exam: Lying in bed comfortably Constitutional: well developed, well nourished, + acute distress (Due to back pain and nausea) and + obese Eyes: PERRL, conjunctivae normal, anicteric sclerae ENMT: external ear and nose normal, oropharynx normal Neck: trachea midline, no thyromegaly Respiratory: no respiratory distress Auscultation: lungs clear to auscultation bilaterally and + diminished lung sounds (At the right base with crackles) Cardiovascular: Rate/Rhythm: regular rate and regular rhythm Heart Sounds: no murmur Extremities: + edema (Trace to 1+ edema bilaterally) Gastrointestinal (Abdomen): Inspection/Auscultation: normal bowel sounds; abdomen not distended Percussion/Palpation: + abdomen tender (Minimal tenderness in left lower quadrant) and abdomen soft Musculoskeletal: Minimal pain in the right wrist but no fracture on x-ray. No acute arthritis in any other joints Neurologic: Alert, awake and oriented x3. Generally weak but no focal sensory and motor deficit Psychiatric: A+Ox3, euthymic affect Lymphatic: no cervical or axillary lymphadenopathy Results & Data Results & Data ([facility]) Vital Signs (Past 12 Hours) Vital Signs Temp Pulse Pulse Resp BP Pulse Ox 08/26/20 08:33 62 107/58 L 08/26/20 08:11 36.4 C L 64 18 87/67 L 97 08/26/20 07:13 63 08/26/20 03:10 36.7 C 71 16 94/60 L 92 08/26/20 03:05 81 L 08/26/20 00:00 85 08/25/20 23:36 36.7 C 77 20 109/72 91 Medications Administered Current Inpatient Medications Acetaminophen (Acetaminophen 325 Mg Tab) 650 mg PO Q4H PRN PRN Reason: pain/fever Stop: 09/16/20 20:06 Last Admin: 08/25/20 16:52 Dose: 650 mg Documented by: Al Hydrox/Mg Hydrox/Simethicone (Aluminum/Magnesium Susp 30 Ml Udc) 30 ml PO Q6H PRN PRN Reason: Dyspepsia Stop: 09/24/20 08:54 Atorvastatin Calcium (Atorvastatin 40 Mg Tab) 40 mg PO QPM MARLA Stop: 09/16/20 20:59 Last Admin: 08/25/20 21:18 Dose: 40 mg Documented by: Cefuroxime Axetil (Cefuroxime Axetil 500 Mg Tab) 500 mg PO BID MARLA Stop: 09/01/20 20:59 Last Admin: 08/26/20 08:26 Dose: 500 mg Documented by: Clopidogrel Bisulfate (Clopidogrel Bisulfate 75 Mg Tab) 75 mg PO QPM MARLA Stop: 09/16/20 20:59 Last Admin: 08/25/20 21:21 Dose: 75 mg Documented by: Dextrose (Dextrose 50% 50 Ml Syringe) 25 - 50 ml IV UD PRN; Protocol PRN Reason: Hypoglycemia Protocol Stop: 09/16/20 20:06 Doxepin HCl (Doxepin Hcl 50 Mg Capsule) 100 mg PO HS [facility] Stop: 09/16/20 20:59 Last Admin: 08/25/20 21:53 Dose: 100 mg Documented by: Duloxetine HCl (Duloxetine Hcl 60 Mg Cap) 60 mg PO QAM MARLA Stop: 09/17/20 08:59 Last Admin: 08/26/20 08:27 Dose: 60 mg Documented by: Ferrous Sulfate (Ferrous Sulfate 325 Mg Tab) 325 mg PO BID MARLA Stop: 09/16/20 20:59 Last Admin: 08/26/20 08:27 Dose: 325 mg Documented by: Gabapentin (Gabapentin 300 Mg Cap) 300 mg PO TID [facility] Stop: 09/16/20 20:59 Last Admin: 08/26/20 08:27 Dose: 300 mg Documented by: Glucagon (Glucagon For Inj 1 Mg Vial) 1 mg SQ UD PRN; Protocol PRN Reason: Hypoglycemia Protocol Stop: 09/16/20 20:06 Glucose (Glucose 10 Tabs/Tube) 4 - 8 tabs PO UD PRN; Protocol PRN Reason: Hypoglycemia Protocol Stop: 09/16/20 20:06 Glucose (Glucose 40% Gel 15 Gm Tube) 15 - 30 gm PO UD PRN; Protocol PRN Reason: Hypoglycemia Protocol Stop: 09/16/20 20:06 Guaifenesin (Guaifenesin 600 Mg Tabcr) 600 mg PO Q12 MARLA Stop: 09/17/20 20:59 Last Admin: 08/26/20 08:27 Dose: 600 mg Documented by: Heparin Sodium (Porcine) (Heparin Sod 5,000 Unit/0.5 Ml Vial) 5,000 units SQ Q8 MARLA Stop: 09/16/20 21:59 Last Admin: 08/26/20 06:37 Dose: 5,000 units Documented by: Promethazine HCl 12.5 mg/ (Sodium Chloride) 50.5 mls @ 202 mls/hr IV Q6H PRN PRN Reason: Nausea And Vomiting Stop: 09/19/20 10:11 Last Infusion: 08/26/20 09:36 Dose: Infused Documented by: Insulin Aspart (Insulin Aspart 100 Units/Ml 3 Ml Pen) 0 units SC ACHS MARLA Stop: 09/16/20 20:59 Last Admin: 08/26/20 08:24 Dose: 6 units Documented by: Insulin Glargine (Insulin Glargine Solostar 100 Units/Ml 3 Ml Pen) 8 units SC BID [facility] Stop: 09/16/20 20:59 Last Admin: 08/26/20 08:25 Dose: 8 units Documented by: Lidocaine (Lidocaine 5% 1 Patch) 1 patch TD QAM [facility] Stop: 09/18/20 11:44 Last Admin: 08/26/20 08:26 Dose: Not Given Documented by: Lidocaine (Lidocaine 5% 1 Patch) [facility] Stop: 09/18/20 16:59 Last Admin: 08/26/20 08:26 Dose: Not Given Documented by: Magnesium Oxide (Magnesium Oxide 400 Mg Tab) 400 mg PO HS [facility] Stop: 09/16/20 20:59 Last Admin: 08/25/20 21:19 Dose: 400 mg Documented by: Metoprolol Succinate (Metoprolol Succ 25mg Ext Rel Tab) 12.5 mg PO BID [facility] Stop: 09/19/20 08:59 Last Admin: 08/26/20 08:26 Dose: Not Given Documented by: Miscellaneous (Teriparatide [Forteo] 20 Mcg/Dose ~ Order Awaiting Action) 1 ea N/A QS [facility] Stop: 09/17/20 00:00 Last Admin: 08/26/20 08:25 Dose: Not Given Documented by: Miscellaneous (Carbohydrates For Hypoglycemia ) 15 - 30 gm PO UD PRN PRN Reason: Hypoglycemia Protocol Stop: 09/16/20 20:06 Miscellaneous (Remove Lidoderm Patch) 1 ea N/A DAILY@2099 [facility] Stop: 09/18/20 20:59 Last Admin: 08/25/20 21:26 Dose: 1 ea Documented by: Miscellaneous (Remove Lidoderm Patch) 1 ea N/A DAILY@2099 [facility] Stop: 09/18/20 20:59 Last Admin: 08/25/20 21:26 Dose: 1 ea Documented by: Oxcarbazepine (Oxcarbazepine 150 Mg Tablet) 300 mg PO BID [facility] Stop: 09/16/20 20:59 Last Admin: 08/26/20 08:27 Dose: 300 mg Documented by: Oxycodone HCl (Oxycodone Hcl Ir 5 Mg Tab (Immediate Release)) 5 - 10 mg PO QID PRN PRN Reason: Pain Stop: 09/02/20 20:01 Last Admin: 08/26/20 08:40 Dose: 10 mg Documented by: Pantoprazole Sodium (Pantoprazole 40 Mg Tab) 40 mg PO DAILY [facility] Stop: 09/17/20 08:59 Last Admin: 08/26/20 08:27 Dose: 40 mg Documented by: Saccharomyces Boulardii (Saccharomyces Boulardii 250 Mg Cap) 250 mg PO BID [facility] Stop: 09/16/20 20:59 Last Admin: 08/26/20 08:27 Dose: 250 mg Documented by: Vitamin D (Cholecalciferol 1,000 Units 25 Mcg Tab) 2,000 units PO QAM [facility] Stop: 09/17/20 08:59 Last Admin: 08/26/20 08:27 Dose: 2,000 units Documented by: (1) Pneumonia Laterality: bilateral Lung location: lower lobe of lung Pneumonia type: due to unspecified organism Qualified Code(s): J18.1 - Lobar pneumonia, unspecified organism (2) Acute renal failure superimposed on stage 3 chronic kidney disease Acute renal failure type: with acute tubular necrosis Qualified Code(s): N17.0 - Acute kidney failure with tubular necrosis; N18.3 - Chronic kidney disease, stage 3 (moderate)
--- NOTE | 2020-08-26 19:05 | Discharge Summary ---
Date of Service August 26, 2020 Admission HPI Per Admitting Provider Patient is a 64 yo female with an extensive PMHx including DM 2, dyslipidemia, chronic respiratory failure with hypoxia, CALI, asthma/COPD, bronchiectasis, HTN, CKD III who presented to the ED with worsening weakness and recurrent falls. The patient complains of increased lightheadedness/presyncopal type episodes at home recently. She has had multiple falls over the past 1 month or so. She fell this morning when she was trying to get back to her chair. She did not hit her head and did not lose consciousness. She is complaining of pain from the fall. She notes that she has not been eating or drinking well at home. She has been feeling very tired and weak. Her legs don't want to hold her up. She has not had any urinary symptoms. She has diarrhea, but this is typical for her. Nothing out of her norm. She has had no fevers that she knows of. COVID negative here in the ED. She was previously on O2 at home but is no longer on that. She has CALI and Obesity hypoventilation syndrome, but she does not like CPAP so she does not use one. Since presentation, patient was found to have slightly elevated WBC count with left shift and possible pneumonia on imaging. Head CT was negative for intracranial abnormalities. Wrist and Pelvis X-Rays were negative. C-Spine CT showed no fracture but did note mild airspace opacity in the right lung apex, favoring infectious process. Chest X-Ray showed right lung airspace opacity favoring infection, and her Abd/Pelvis CT also showed multifocal airspace opacity in the RML and RLL also appearing infectious. Urinalysis showed >3 WBC, 3+ Leuks, 2+ blood, and 2+ protein. Urine and blood cultures pending. Creatinine acutely elevated to 2.49 from baseline around 1.3-1.5 outpatient. She was given IV Ceftriaxone, Azithromycin and NSS in the ED. Admission Exam Per Admitting Provider Constitutional: + ill appearing, + morbidly obese, cooperative and + lethargic; no acute distress and + not appropriately hydrated Eyes: PERRL, conjunctivae normal, anicteric sclerae ENMT: external ear and nose normal, oropharynx normal Neck: trachea midline, no thyromegaly + thick neck Respiratory: normal respiratory effort; no respiratory distress, no labored breathing, does not use accessory muscles and no cough Slightly coarse breath sounds in the right lung mcclellan. No distinct rales or rhonchi. Cardiovascular: RRR, no murmur, no edema Gastrointestinal (Abdomen): Inspection/Auscultation: abdomen normal to inspection and normal bowel sounds; abdomen not distended Percussion/Palpation: + abdomen tender (mild generalized tenderness with suprapubic tenderness.) and abdomen soft; no guarding and abdomen not rigid Musculoskeletal: Head/Neck/Chest: normocephalic and head atraumatic No pitting edema on exam. Skin: no rashes, warm and dry Neurologic: PERRL, EOMI, accommodation nl, no face palsy, no dysarthria CN's II-XI intact bilaterally; not confused Principal Diagnosis Ambulatory dysfunction with recurrent falls, pneumonia, generalized weakness, controlled asthma/COPD, CALI-does not use a CPAP Discharge Exam Constitutional well developed, well nourished, + acute distress (Due to back pain and nausea) and + obese Eyes PERRL, conjunctivae normal, anicteric sclerae ENMT external ear and nose normal, oropharynx normal Neck trachea midline, no thyromegaly Respiratory no respiratory distress Auscultation: lungs clear to auscultation bilaterally and + diminished lung sounds (At the right base with crackles) Cardiovascular Rate/Rhythm: regular rate and regular rhythm Heart Sounds: no murmur Extremities: + edema (Trace to 1+ edema bilaterally) Gastrointestinal (Abdomen) Inspection/Auscultation: normal bowel sounds; abdomen not distended Percussion/Palpation: + abdomen tender (Minimal tenderness in left lower quadrant) and abdomen soft Psychiatric A+Ox3, euthymic affect Lymphatic no cervical or axillary lymphadenopathy Discharge Data Allergies Allergy/AdvReac Type Severity Reaction Status Date / Time salicylates Allergy Severe SHORTNESS Verified 08/17/20 14:29 OF BREATH Iodinated Contrast Media Allergy Intermediate EYES Verified 08/17/20 14:29 SWELLING/Hives amoxicillin [From Augmentin] Allergy Mild Rash Verified 08/17/20 14:29 aspirin Allergy Mild FACIAL Verified 08/17/20 14:29 SWELLING clavulanic acid Allergy Mild Rash Verified 08/17/20 14:29 [From Augmentin] hydromorphone Allergy Mild RASH/ITCHIN Verified 08/17/20 14:29 G fentanyl Allergy itching/felt Verified 08/17/20 14:29 like throat closing meperidine AdvReac Intermediate ITCH Verified 08/17/20 14:29 morphine AdvReac Intermediate ITCH Verified 08/17/20 14:29 tramadol AdvReac Mild itch Verified 08/17/20 14:29 Consultations 08/17/20 16:29 ED Decision to Admit Stat 08/17/20 20:07 Consult Case Management - Discharge Planning Routine Ordered Studies 08/17/20 14:07 CT abd pelvis wo con Stat CT cervical spine wo con Stat CT head/brain wo con Stat 08/25/20 08:54 CT abd pelvis wo con Routine Hospital Course (1) Recurrent falls: Mechanical fall Evidence of fracture Get PT and OT evaluation-recommended home (2) Weakness: Patient with recent recurrent falls at home. She has been feeling lightheaded/dizzy. She admits that she has not been eating or drinking well. She feels that her legs want to give out on her very easily. Feel that her lightheadedness/dizziness could be multifactorial given probable infection, multiple [employer] medications, dehydration with acute renal failure, and PT and OT evaluation Fall precautions. Clinically a lot better today and was advised to participate in PT and OT PT recommended home (3) Pneumonia: Chest x-ray finding supports pneumonia involving the right base Getting intravenous ceftriaxone and oral azithromycin Clinically better without any fever and/or chills Blood cultures have been negative and Urine culture is growing 3 types of organisms We will continue current antibiotics for now Denies any respiratory symptoms No more respiratory symptoms Antibiotic courses finished Lower abdominal discomfort Repeat CT scan remains unremarkable She is medically stable to be discharged Lower abdominal pain is resolved (4) COPD (chronic obstructive pulmonary disease): No evidence of acute exacerbation (5) Obesity hypoventilation syndrome: (6) Asthma: No acute shortness of breath She is saturating well on room air. CALI and obesity hypoventilation syndrome Patient does not use a CPAP at home despite history of CALI and obesity hypoventilation syndrome. O2 PRN to maintain SaO2 >90% (7) Acute renal failure superimposed on stage 3 chronic kidney disease: Lisinopril is on holdCreatinine on admission was 2.49 and has been improving since then Creatinine 1.56 as of 08/20/2020 Creatinine is minimally improved at 1.50 as of 08/22/2020 Advised to drink more fluid (8) HTN (hypertension): The lower side of normal (9) Renal calculi: Patient's creatinine up to 2.4 from baseline of 1.4. Will need to closely monitor. Seems likely to be secondary to poor PO intake. CT of the abdomen pelvis showed Left-sided nephrolithiasis with stable collecting system dilatation. The abdomen and pelvis showed 2 cm staghorn calculus in the left renal pelvis with nephrolithiasis as before without any obstruction and/or diverticulitis She will be discharged today (10) DM type 2 (diabetes mellitus, type 2): Insulin sliding scale. (11) DVT prophylaxis: Heparin Q8h Total Time Total Time Spent Total Time Spent (In Minutes): 35 minutes Total Time Includes: Examination of the Patient, Discharge Planning, Medication Reconciliation and Communication With Other Providers Discharge Plan Discharge Items Patient Disposition: Home - Home Health Services Reason For Visit: PNEUMONIA,FALL Discharge Diagnosis: Ambulatory dysfunction with recurrent falls, pneumonia, generalized weakness, controlled asthma/COPD, CALI-does not use a CPAP Condition on Discharge: Fair Activity: Resume your previous activity Activity Comment: Please take extreme precaution to avoid fall Non-emergency contact: Primary Care Provider Call non-emergency contact if: you have any medication questions and your symptoms worsen Follow-up/Referrals: Lo Chand DO [Primary Care Provider] - (Date & Time 08/29/2020 11:10 AM Provider Lo Chand DO Department Internal Medicine [facility] ) Diet: Carb Consistent or DM2 and Heart Healthy Addtl Attending Provider Instructions: Please take extreme precautions to avoid fall Pending Studies at Discharge: No Stand-Alone Forms: My [facility] InOpen, Smoking Cessation Medications and DC Order Prescriptions: Continued metoprolol succinate 50 mg tablet extended release 24 hr 75 mg PO BID RF: 0 albuterol sulfate 90 mcg/actuation Hfa Aerosol Inhaler 2 puff INHALATION Q4H PRN (Reason: Shortness Of Breath) RF: 0 magnesium oxide 400 mg magnesium Tablet 400 mg PO HS RF: 0 doxepin 100 mg capsule 100 mg PO HS RF: 0 ferrous sulfate 325 mg (65 mg iron) tablet 325 mg PO BID RF: 0 glipizide [Glucotrol XL] 2.5 mg tablet extended release 24hr 2.5 mg PO DAILY Qty: 30 RF: 3 Forteo 20 mcg/dose - 600 mcg/2.4 mL Pen Injector 20 mcg SUBCUT Q14D RF: 0 atorvastatin [Lipitor] 40 mg Tablet 40 mg PO QPM RF: 0 clopidogrel [Plavix] 75 mg Tablet 75 mg PO QPM RF: 0 pantoprazole [Protonix] 40 mg Tablet,Delayed Release (Dr/Ec) 40 mg PO BID RF: 0 gabapentin 300 mg Capsule 300 mg PO TID RF: 0 riboflavin (vitamin B2) 400 mg Tablet 400 mg PO QPM RF: 0 duloxetine 60 mg Capsule,Delayed Release(Dr/Ec) 60 mg PO QAM RF: 0 oxcarbazepine [Trileptal] 300 mg tablet 300 mg PO BID RF: 0 cholecalciferol (vitamin D3) [Vitamin D3] 2,000 unit Capsule 2,000 unit PO QAM RF: 0 lidocaine 5 % Adhesive Patch,Medicated 1 patch topical DAILY RF: 0 lisinopril 2.5 mg tablet 2.5 mg PO DAILY RF: 0 Saccharomyces boulardii [Florastor] 250 mg capsule 250 mg PO BID RF: 0 ondansetron 4 mg tablet,disintegrating 4 mg PO Q8H PRN (Reason: nausea and vomiting) RF: 0 Discharge Orders: Discharge Order (Routine); Ordered 08/26/20 Ordered By: Annette Modi Admission Data Admit Date/Time: 08/17/20 17:43 Attending Provider: Annette Modi Admit Provider: Yesica Grande Primary Care Provider: Lo Chand Other Providers: Yesica Grande ; Davion Hector [facility] ; Donnie Millard Other Interventions: Discharge Summary Assessment (RN) Last Done: 08/26/20 12:50
== END 2020-08-26 14:24 | disposition home health service (06) | DRG 194 ==
LOC: ED 13:31 → SUATTDRO 17:43 → 2N 17:43

== ENCOUNTER 2020-09-03 15:28 | Inpatient (IN) ==
[2020-09-03] MEDS ORDERED: SODIUM CHLORIDE 0.9% 1000ML 1,000 ML IV SCH (16:15)
[2020-09-03] MEDS ORDERED: SODIUM CHLORIDE 0.9% 500 ML IV SCH (16:15)
--- NOTE | 2020-09-03 16:17 | Emergency Department Note ---
Impression & Plan Acute hypotension, Weakness, Acute strain of neck muscle, Right shoulder strain, Acute UTI (urinary tract infection) ED Provider Note INFORMANT: Patient ED PROVIDER(S): Kyler Cam MD CHIEF COMPLAINT: Fall PLAN: Disposition: Admitted Condition: Guarded MEDICAL DECISION MAKING: Patient presented after a fall. She stated she was not feeling well. Her blood pressure was borderline. She had fluid resuscitation initiated. Her CBC revealed mild leukocytosis. There is no anemia. Chemistry panel revealed mild hyperkalemia but a significant elevation of her creatinine concerning for acute renal failure. Troponin and TSH were negative. ECG shows an poor R wave progression but no ST elevation. Urinary analysis revealed findings concerning for UTI. CT imaging of the head and neck as well as chest x-ray and shoulder x- ray were negative for acute process. CT scan abdomen pelvis was concerning as noted below. Additional IV fluids given. Consultation was made with the [facility] service. Antibiotics were initiated in the ER. The patient was evaluated for further management. Triage Nursing notes reviewed and agree them. Prior medical records reviewed regarding prior admission. Her PERRI had resolved with a near normal creatinine on discharge. Vital Signs: reviewed and remarkable for hypertension Differential diagnosis: Trauma, infection, dehydration, metabolic abnormality, hypo/hyperglycemia, electrolyte disturbance, anemia, hypoxia, cardiac sources, intracerebral event, toxicologic, neurologic, as well as other pathologies. Diagnostics interpreted by me: ECG: Twelve-lead ECG reveals a sinus rhythm with a first-degree AV block at 74 bpm. Poor R wave progression anteriorly. No ST elevation. Cardiac Monitoring:Cardiac monitoring ordered by me: The patient was placed on continuous cardiac monitoring and observed. It revealed a normal sinus rhythm at 67 beats per minute without ectopy or evidence of dysrhythmia. Imaging studies: Chest x-ray. Findings: A chest x-ray was performed and revealed no pneumothorax, effusion, infiltrate, pulmonary edema, free air under the di aphragm, or wide mediastinum. Impression: No acute disease. Shoulder x-ray reveals no evidence of fracture or dislocation. CT imaging of the head and neck are negative for acute process. CT scan of the abdomen pelvis reveals persistence of a staghorn calculi with uroepithelial thickening. In light of her abnormal urinalysis this is concerning for infection. Consultation(s): Olivia Jo PA-C and of the [facility] service. HPI: The patient is a 64 year old female who presents to the Emergency Room with complaints of fall. This started this afternoon and is a recurrent problem. The patient also notes the following associated symptoms, weakness, dizziness, SOB, neck pain, right shoulder pain, nd diarrhea. The patient has found no relieving factors. Current pain is rated as 4/10. Pt denies LOC, headache, fevers, chills, diaphoresis, visual changes, chest pain, nausea, vomiting, abdominal pain, back pain, melena, hematochezia, urinary symptoms, numbness, lymphadenopathy, rash, or other complaints. ROS: See above HPI for pertinent positives & negatives. A total of 10 systems re viewed and were otherwise negative. PAST MEDICAL HISTORY:See Below, PNA, CKD PAST SURGICAL HISTORY:See Below, FAMILY HISTORY:See Below SOCIAL HISTORY:See Below, No tob or etoh. HOME MEDICATIONS:See Below ALLERGIES:See Below VITALS:See Below hypotension on exam 66/42 PHYSICAL EXAMINATION: [GENERAL: Awake,tired appearing, in no distress HENT: Normocephalic, atraumatic. Oropharynx unremarkable. EYES: Normal conjunctiva. Sclera non-icteric. NECK: Inspection normal. mild lateral-tender. Supple. No nuchal rigidity. FROM. No masses. RESPIRATORY: Clear to auscultation. No wheezes. No rales. Normal respiratory effort. CARDIAC: Normal rate. Normal rhythm. No murmurs. No rubs. Extremities warm and well perfused. Pulses equal. No JVD. GI: Soft, non-distended. No tenderness to palpation. No rebound or guarding. No masses. RECTAL: Deferred. MUSCULOSKELETAL: Atraumatic. Chest examination reveals no tenderness. The back is symmetrical on inspection without obvious abnormality. There is no CVA tenderness to palpation. No joint edema. LOWER EXTREMITIES: Calves are equal size bilaterally and non-tender. No edema. No discoloration. NEURO: Normal sensorium. No sensory or motor deficits noted. SKIN: No rash or jaundice noted. ED COURSE: Critical Care: I have personally spent greater than 30 minutes of critical care time in the direct management of this patient. This includes bedside care, interpretation of diagnostic studies, and testing, discussion with consultants, patient, and family members, and other required patient management activities. These minutes are in excess of all separately billable procedures. Kyler Cam MD Past Med/Surg History Medical History Anxiety Asthma CHF (congestive heart failure) Chronic back pain Chronic headaches Chronic renal insufficiency stage 3, following with [facility] nephrology ([place]) COPD (chronic obstructive pulmonary disease) Deep vein thrombosis LLE - COULD NOT RECALL DATE - REPORTS SHE WAS TREATED AT [facility] W/ BLOOD THINNERS Degenerative disc disease Depression Diabetes mellitus, type 2 GERD (gastroesophageal reflux disease) Gram negative septicemia History of colon cancer 2012 S/P BOWEL RESECTION. History of esophageal dilatation Hyperlipidemia Hypertension Kidney stones Morbid obesity with BMI of 40.0-44.9, adult Myocardial Infarction 03/2018--> [facility] -- CARDIAC CATH --> NO STENTS/ANGIOPLASTY PER PT REPORT -- POOR HISTORIAN? REPORTS SHE IS ON PLAVIX FOR HEART - DENIES STENTS - DENIES ARRHYTHMIA - FOLLOWS W/ DR. TORRES On anticoagulant therapy plavix daily On home oxygen therapy 2L N/C at all times - states MD stopped this, patient states she is no longer using Osteoarthritis Poor historian Pyelonephritis Recurrent falls Seizure pt states "i think i had them a long time ago". no other information. Sepsis Surgical History H/O hand surgery RIGHT History of appendectomy History of bilateral cataract extraction History of blepharoplasty History of bowel resection d/t colon cancer History of cardiac cath 03/2018 - OR - DENIES STENTS/ANGIOPLASTY - [facility] - FOLLOWS W/ DR. TORRES History of colonoscopy History of cystoscopy History of esophagogastroduodenoscopy (EGD) History of kidney surgery at age 9 yrs "something was wrong and had to fix it" History of lithotripsy History of tooth extraction History of total abdominal hysterectomy and bilateral salpingo-oophorectomy Hx of cholecystectomy Family History Other Breast cancer Social History Smoking Status: Unknown if ever smoked Second Hand Exposure: No; Do You Dip or Chew Tobacco: No; Tobacco Cessation Education Requested by Patient: No Hx Alcohol Use: No Hx Substance Use: No Preferred Language: Uzbek Communication Ability: Effective [employer] Required: No Beliefs That Will Affect Care: None marital status: Current Living Situation: Alone Current Living Situation Comment: [place] in [place] Other Information That Helps Us Care for You: No Feels Safe at Home: Yes Assistive Devices: Walker Allergies Allergies Allergy/AdvReac Type Severity Reaction Status Date / Time salicylates Allergy Severe SHORTNESS Verified 09/03/20 17:07 OF BREATH Iodinated Contrast Media Allergy Intermediate EYES Verified 09/03/20 17:07 SWELLING/Hives amoxicillin [From Augmentin] Allergy Mild Rash Verified 09/03/20 17:07 aspirin Allergy Mild FACIAL Verified 09/03/20 17:07 SWELLING clavulanic acid Allergy Mild Rash Verified 09/03/20 17:08 [From Augmentin] hydromorphone Allergy Mild RASH/ITCHIN Verified 09/03/20 17:08 G fentanyl Allergy itching/felt Verified 09/03/20 17:08 like throat closing meperidine AdvReac Intermediate ITCH Verified 09/03/20 17:08 morphine AdvReac Intermediate ITCH Verified 09/03/20 17:09 tramadol AdvReac Mild itch Verified 09/03/20 17:09 Home Meds Home Medications Medication Instructions Recorded Confirmed atorvastatin [Lipitor] 40 mg PO QPM 07/12/18 09/03/20 clopidogrel [Plavix] 75 mg PO QPM 07/12/18 09/03/20 gabapentin 300 mg PO TID 07/12/18 09/03/20 pantoprazole [Protonix] 40 mg PO BID 07/12/18 09/03/20 riboflavin (vitamin B2) 400 mg PO QPM 07/12/18 09/03/20 duloxetine 60 mg PO QAM 10/16/18 09/03/20 cholecalciferol (vitamin D3) 2,000 unit PO QAM 05/16/19 09/03/20 [Vitamin D3] oxcarbazepine [Trileptal] 300 mg PO BID 05/16/19 09/03/20 albuterol sulfate 2 puff INHALATION Q4H PRN 07/21/19 09/03/20 metoprolol succinate 75 mg PO BID 07/21/19 09/03/20 magnesium oxide 400 mg PO HS 10/05/19 09/03/20 doxepin 100 mg PO HS 11/30/19 09/03/20 ferrous sulfate 325 mg PO BID 11/30/19 09/03/20 Forteo 20 mcg SUBCUT Q14D 05/06/20 09/03/20 Saccharomyces boulardii [Florastor] 250 mg PO BID 08/17/20 09/03/20 lidocaine 1 patch TOPICAL DAILY 08/17/20 09/03/20 lisinopril 2.5 mg PO DAILY 08/17/20 09/03/20 ondansetron 4 mg PO Q8H PRN 08/17/20 09/03/20 Previous Rx's Medication Instructions Recorded glipizide [Glucotrol XL] 2.5 mg PO DAILY #30 tab 02/12/20 Results & Data (ED) Vital Signs Vital Signs - 24 hr 09/03/20 15:37 09/03/20 15:39 09/03/20 15:47 Temperature 36.8 C Temperature Source Oral Pulse Rate 76 75 79 Pulse Rate [Left Finger] Pulse Rate from SpO2 Sensor 76 75 Respiratory Rate 16 17 18 Blood Pressure 98/59 L 98/59 L Blood Pressure [Left Arm] Blood Pressure Mean 71 72 Blood Pressure Mean [Left Arm] Pulse Oximetry 97 97 98 Oxygen Delivery Method Room Air Sepsis Recent Fever Within 48 Hours No Sepsis New/Unexplained Change in Mental Status N/A Sepsis Action Taken by Nursing No Action Required 09/03/20 16:00 09/03/20 16:13 09/03/20 16:22 Temperature Temperature Source Pulse Rate 70 70 Pulse Rate [Left Finger] Pulse Rate from SpO2 Sensor 70 69 69 Respiratory Rate 13 16 20 Blood Pressure 68/44 L 66/42 L 76/45 L Blood Pressure [Left Arm] Blood Pressure Mean 55 49 48 Blood Pressure Mean [Left Arm] Pulse Oximetry 93 94 93 Oxygen Delivery Method Sepsis Recent Fever Within 48 Hours Sepsis New/Unexplained Change in Mental Status Sepsis Action Taken by Nursing 09/03/20 16:30 09/03/20 16:52 09/03/20 16:56 Temperature Temperature Source Pulse Rate 74 69 71 Pulse Rate [Left Finger] Pulse Rate from SpO2 Sensor 69 Respiratory Rate 18 17 22 Blood Pressure 64/50 L Blood Pressure [Left Arm] Blood Pressure Mean 56 Blood Pressure Mean [Left Arm] Pulse Oximetry 93 94 Oxygen Delivery Method Room Air Sepsis Recent Fever Within 48 Hours Sepsis New/Unexplained Change in Mental Status Sepsis Action Taken by Nursing 09/03/20 16:59 09/03/20 17:00 09/03/20 17:01 Temperature Temperature Source Pulse Rate 72 89 Pulse Rate [Left Finger] Pulse Rate from SpO2 Sensor 72 74 Respiratory Rate 21 18 Blood Pressure 59/34 L 69/49 L Blood Pressure [Left Arm] Blood Pressure Mean 43 56 Blood Pressure Mean [Left Arm] Pulse Oximetry 92 91 91 Oxygen Delivery Method Room Air Sepsis Recent Fever Within 48 Hours Sepsis New/Unexplained Change in Mental Status Sepsis Action Taken by Nursing 09/03/20 17:02 09/03/20 17:15 09/03/20 17:30 Temperature Temperature Source Pulse Rate 68 63 64 Pulse Rate [Left Finger] Pulse Rate from SpO2 Sensor 68 63 64 Respiratory Rate 14 14 19 Blood Pressure 73/47 L 67/36 L 71/39 L Blood Pressure [Left Arm] Blood Pressure Mean 58 55 44 Blood Pressure Mean [Left Arm] Pulse Oximetry 93 92 94 Oxygen Delivery Method Sepsis Recent Fever Within 48 Hours Sepsis New/Unexplained Change in Mental Status Sepsis Action Taken by Nursing 09/03/20 17:45 09/03/20 17:47 09/03/20 18:06 Temperature Temperature Source Pulse Rate 61 65 Pulse Rate [Left Finger] Pulse Rate from SpO2 Sensor 62 Respiratory Rate 15 15 Blood Pressure 66/43 L Blood Pressure [Left Arm] Blood Pressure Mean 56 Blood Pressure Mean [Left Arm] Pulse Oximetry 93 Oxygen Delivery Method Sepsis Recent Fever Within 48 Hours Sepsis New/Unexplained Change in Mental Status Sepsis Action Taken by Nursing 09/03/20 18:15 09/03/20 18:22 09/03/20 18:30 Temperature Temperature Source Pulse Rate 64 64 62 Pulse Rate [Left Finger] Pulse Rate from SpO2 Sensor 65 62 Respiratory Rate 15 14 15 Blood Pressure 60/37 L 56/44 L 73/48 L Blood Pressure [Left Arm] Blood Pressure Mean 42 47 58 Blood Pressure Mean [Left Arm] Pulse Oximetry 93 93 Oxygen Delivery Method Sepsis Recent Fever Within 48 Hours Sepsis New/Unexplained Change in Mental Status Sepsis Action Taken by Nursing 09/03/20 18:32 Temperature Temperature Source Pulse Rate Pulse Rate [Left Finger] 62 Pulse Rate from SpO2 Sensor Respiratory Rate 18 Blood Pressure Blood Pressure [Left Arm] 73/48 L Blood Pressure Mean Blood Pressure Mean [Left Arm] 56 Pulse Oximetry 93 Oxygen Delivery Method Room Air Sepsis Recent Fever Within 48 Hours Sepsis New/Unexplained Change in Mental Status Sepsis Action Taken by Nursing Laboratory Data Result diagrams: 09/03/20 16:34 09/03/20 21:50 Lab Results 09/03/20 09/03/20 09/03/20 Range/Units 16:34 16:34 16:34 WBC 12.23 H (4.8-10.8) K/uL RBC 4.00 L (4.2-5.4) M/uL Hgb 12.0 (12.0-16.0) g/dL Hct 39.4 (37-47) % MCV 98.5 (80-100) fL MCH 30.0 (25-34) pg MCHC 30.5 L (32-36) g/dL RDW Std Deviation 51.3 H (36.4-46.3) fL RDW Coeff of Teresa 14.3 (11.5-14.5) % Plt Count 297 (130-400) K/uL MPV 10.9 H (7.4-10.4) fL Immature Gran % (Auto) 0.3 % Neut % (Auto) 75.5 % Lymph % (Auto) 14.2 % [place] % (Auto) 7.3 % Eos % (Auto) 2.4 % Baso % (Auto) 0.3 % Neut # (Auto) 9.23 H (1.4-6.5) K/uL Lymph # (Auto) 1.74 (1.2-3.4) K/uL [place] # (Auto) 0.89 H (0.11-0.59) K/uL Eos # (Auto) 0.29 (0-0.5) K/uL Baso # (Auto) 0.04 (0-0.2) K/uL Immature Gran # (Auto) 0.04 H (0.00-0.02) K/uL Sodium 137 (136-145) mmol/L Potassium 5.7 H (3.5-5.1) mmol/L Chloride 113 H (98-107) mmol/L Carbon Dioxide 19 L (21-32) mmol/L Anion Gap 5.0 (3-11) BUN 63 H (7-18) mg/dl Creatinine 6.25 H* (0.6-1.2) mg/dl Est Cr Clr Drug Dosing 8.9 ml/min Est GFR ( Amer) 7.4 Est GFR (Non-Af Amer) 6.4 BUN/Creatinine Ratio 10.0 (10-20) Glucose 80 (70-99) mg/dl Lactate 1.0 (0.4-2.0) mmol/L Calcium 9.0 (8.5-10.1) mg/dl Total Bilirubin 0.2 (0.2-1) mg/dl AST 14 L (15-37) U/L ALT 25 (12-78) U/L Alkaline Phosphatase 168 H (45-117) U/L Troponin I < 0.015 (0-0.045) ng/ml Total Protein 8.1 (6.4-8.2) gm/dl Albumin 3.6 (3.4-5.0) gm/dl Globulin 4.5 H (2.5-4.0) gm/dl Albumin/Globulin Ratio 0.8 L (0.9-2) TSH 0.315 (0.300-4.500) uIu/ml Urine Color Urine Appearance (Clear) Urine pH (4.5-7.5) Ur Specific Jon[place] (1.000-1.030) Urine Protein (Negative) Urine Glucose (UA) (Negative) Urine Ketones (Negative) Urine Blood (Negative) Urine Nitrite (Negative) Urine Bilirubin (Negative) Urine Urobilinogen (Negative) Ur Leukocyte Esterase (Negative) Urine RBC (0-4) /hpf Urine WBC (0-5) /hpf Ur Epithelial Cells (0-5) /lpf Urine Bacteria (Negative) COVID-19 Eval Order SARS-CoV-2, RNA, NAAT (NEGATIVE) 09/03/20 09/03/20 09/03/20 Range/Units 16:56 16:56 18:35 WBC (4.8-10.8) K/uL RBC (4.2-5.4) M/uL Hgb (12.0-16.0) g/dL Hct (37-47) % MCV (80-100) fL MCH (25-34) pg MCHC (32-36) g/dL RDW Std Deviation (36.4-46.3) fL RDW Coeff of Teresa (11.5-14.5) % Plt Count (130-400) K/uL MPV (7.4-10.4) fL Immature Gran % (Auto) % Neut % (Auto) % Lymph % (Auto) % [place] % (Auto) % Eos % (Auto) % Baso % (Auto) % Neut # (Auto) (1.4-6.5) K/uL Lymph # (Auto) (1.2-3.4) K/uL [place] # (Auto) (0.11-0.59) K/uL Eos # (Auto) (0-0.5) K/uL Baso # (Auto) (0-0.2) K/uL Immature Gran # (Auto) (0.00-0.02) K/uL Sodium (136-145) mmol/L Potassium (3.5-5.1) mmol/L Chloride (98-107) mmol/L Carbon Dioxide (21-32) mmol/L Anion Gap (3-11) BUN (7-18) mg/dl Creatinine (0.6-1.2) mg/dl Est Cr Clr Drug Dosing ml/min Est GFR ( Amer) Est GFR (Non-Af Amer) BUN/Creatinine Ratio (10-20) Glucose (70-99) mg/dl Lactate (0.4-2.0) mmol/L Calcium (8.5-10.1) mg/dl Total Bilirubin (0.2-1) mg/dl AST (15-37) U/L ALT (12-78) U/L Alkaline Phosphatase (45-117) U/L Troponin I (0-0.045) ng/ml Total Protein (6.4-8.2) gm/dl Albumin (3.4-5.0) gm/dl Globulin (2.5-4.0) gm/dl Albumin/Globulin Ratio (0.9-2) TSH (0.300-4.500) uIu/ml Urine Color Yellow Urine Appearance Cloudy A (Clear) Urine pH 5.5 (4.5-7.5) Ur Specific [place] 1.025 (1.000-1.030) Urine Protein 3+ H (Negative) Urine Glucose (UA) Negative (Negative) Urine Ketones Trace H (Negative) Urine Blood 1+ H (Negative) Urine Nitrite Negative (Negative) Urine Bilirubin Negative (Negative) Urine Urobilinogen Negative (Negative) Ur Leukocyte Esterase 3+ H (Negative) Urine RBC 10-30 H (0-4) /hpf Urine WBC >30 H (0-5) /hpf Ur Epithelial Cells 0-5 (0-5) /lpf Urine Bacteria 1+ H (Negative) COVID-19 Eval [facility] SARS-[facility]-2, RNA, NAAT NEGATIVE (NEGATIVE) Administered Medications Clopidogrel Bisulfate (Clopidogrel Bisulfate 75 Mg Tab) 75 mg PO QPM MARLA Stop: 10/03/20 20:59 Last Admin: 09/03/20 21:37 Dose: 75 mg Documented by: [id number] Gabapentin (Gabapentin 100 Mg Cap) 200 mg PO HS MARLA; Protocol Stop: 10/03/20 21:59 Last Admin: 09/03/20 22:09 Dose: 200 mg Documented by: [id number] Sodium Bicarbonate 100 meq/ (Dextrose) 1,100 mls @ 125 mls/hr IV .Q8H48M MARLA Stop: 10/03/20 19:29 Last Admin: 09/03/20 19:45 Dose: 125 mls/hr Documented by: [id number] Insulin Aspart (Insulin Aspart 100 Units/Ml 3 Ml Pen) 0 units SC ACHS MARLA Stop: 10/03/20 20:59 Last Admin: 09/03/20 21:38 Dose: 2 units Documented by: [id number] Cosigned by: [id number] Magnesium Oxide (Magnesium Oxide 400 Mg Tab) 400 mg PO HS [facility] Stop: 10/03/20 20:59 Last Admin: 09/03/20 21:37 Dose: 400 mg Documented by: [id number] Miscellaneous (Remove Lidoderm Patch) 1 ea N/A DAILY@2100 [facility] Stop: 10/03/20 20:59 Last Admin: 09/03/20 21:38 Dose: Not Given Documented by: [id number] Oxcarbazepine (Oxcarbazepine 150 Mg Tablet) 150 mg PO BID [facility]; Protocol Stop: 10/03/20 21:59 Last Admin: 09/03/20 21:38 Dose: 150 mg Documented by: [id number] Pantoprazole Sodium (Pantoprazole 40 Mg Tab) 40 mg PO BID MARLA Stop: 10/03/20 20:59 Last Admin: 09/03/20 21:37 Dose: 40 mg Documented by: [id number] Saccharomyces Boulardii (Saccharomyces Boulardii 250 Mg Cap) 250 mg PO BID MARLA Stop: 10/03/20 20:59 Last Admin: 09/03/20 21:37 Dose: 250 mg Documented by: [id number] Discontinued Medications Dextrose (Dextrose 50% 50 Ml Syringe) 25 ml IV NOW STA Stop: 09/03/20 19:31 Last Admin: 09/03/20 19:48 Dose: 25 ml Documented by: [id number] Sodium Chloride (Nss 1000ml) 1,000 mls @ 125 mls/hr IV .Q8H MARLA Stop: 09/04/20 00:14 Last Infusion: 09/03/20 18:37 Dose: 0 mls/hr Documented by: [id number] Admin: 09/03/20 17:21 Dose: 125 mls/hr Documented by: [id number] Sodium Chloride (Nss) 500 mls @ 999 mls/hr IV .Q31M MARLA Stop: 09/03/20 16:45 Last Infusion: 09/03/20 17:09 Dose: 0 mls/hr Documented by: [id number] Admin: 09/03/20 16:31 Dose: 999 mls/hr Documented by: [id number] Sodium Chloride (Nss 1000ml) 500 mls @ 999 mls/hr IV .Q31M ONE Stop: 09/03/20 18:13 Last Infusion: 09/03/20 18:50 Dose: 0 mls/hr Documented by: [id number] Admin: 09/03/20 18:19 Dose: 999 mls/hr Documented by: [id number] Sodium Chloride (Nss 1000ml) 1,000 mls @ 999 mls/hr IV .Q1H1M ONE Stop: 09/03/20 19:25 Last Infusion: 09/03/20 19:52 Dose: 0 mls/hr Documented by: [id number] Admin: 09/03/20 18:31 Dose: 999 mls/hr Documented by: [id number] Ceftriaxone Sodium (Rocephin) 2,000 mg in 70 mls @ 140 mls/hr IV NOW STA Stop: 09/03/20 18:58 Last Infusion: 09/03/20 19:21 Dose: 0 mls/hr Documented by: [id number] Admin: 09/03/20 18:51 Dose: 140 mls/hr Documented by: [id number] Calcium Gluconate 1,000 mg/ (Sodium Chloride) 60 mls @ 240 mls/hr IV 1930 ONE Stop: 09/03/20 19:44 Last Infusion: 09/03/20 19:57 Dose: 0 mls/hr Documented by: [id number] Admin: 09/03/20 19:42 Dose: 240 mls/hr Documented by: [id number] Sodium Chloride (Nss 1000ml) 500 mls @ 999 mls/hr IV .Q31M ONE Stop: 09/03/20 20:26 Last Admin: 09/03/20 20:10 Dose: 999 mls/hr Documented by: [id number] Discharge Plan Visit Data Chief Complaint: Fall Stated Complaint: WEAKNESS, ILLNESS ED Provider: Kyler Cam Discharge Problem: Acute hypotension, Weakness, Acute strain of neck muscle, Right shoulder strain, Acute UTI (urinary tract infection) Patient Disposition: Admitted As Inpatient Discharge Instructions Interventions: ED Discharge Assessment Last Done: 09/03/20 20:16
[2020-09-03 16:52] LABS: Basophils # (auto) 0.04 K/uL (0-0.2); Basophils % (auto) 0.3 %; Eosinophils # (auto) 0.29 K/uL (0-0.5); Eosinophils % (auto) 2.4 %; Hematocrit (blood only) 39.4 % (37-47); Immature Granulocytes # (auto) 0.04 K/uL (0.00-0.02); Immature Granulocytes % (auto) 0.3 %; Lymphocytes # (auto) 1.74 K/uL (1.2-3.4); Lymphocytes % (auto) 14.2 %; Mean Corpuscular Hgb Conc 30.5 g/dL (32-36); Mean Corpuscular Volume 98.5 fL (80-100); Mean Platelet Volume 10.9 fL (7.4-10.4); Monocytes # (auto) 0.89 K/uL (0.11-0.59); Monocytes % (auto) 7.3 %; Neutrophils # (auto) 9.23 K/uL (1.4-6.5); Neutrophils % (auto) 75.5 %; Platelet Count 297 K/uL (130-400); RDW Coefficient of Variation 14.3 % (11.5-14.5); RDW Standard Deviation 51.3 fL (36.4-46.3); White Blood Count 12.23 K/uL (4.8-10.8)
--- NOTE | 2020-09-03 17:08 | XRay Report ---
XR chest 1V portable CLINICAL HISTORY: fall, weak, sob, recent PNA COMPARISON STUDY: 08/17/2020 FINDINGS: The cardiac and mediastinal contours are normal. There is no evidence of focal pulmonary co nsolidation. There is no evidence of failure. No pleural effusions are visualized.[ There are minor basilar atelectatic changes. IMPRESSION: No active disease in the chest. ACT 112: Negative or not required by law. Electronically signed by: Hank Coronado M.D. 09/03/2020 5:07 PM
--- NOTE | 2020-09-03 17:09 | XRay Report ---
XR shoulder RT min 2V routine CLINICAL HISTORY: Right shoulder pain status post trauma COMPARISON: None. DISCUSSION: No fractures or dislocations are visualized. IMPRESSION: No fractures or dislocations identified. ACT 112: Negative or not required by law. Electronically signed by: Hank Coronado M.D. 09/03/2020 5:08 PM
[2020-09-03 17:37] LABS: Alanine Aminotransferase 25 U/L (12-78); Albumin Globulin Ratio 0.8 (0.9-2); Albumin Level 3.6 gm/dl (3.4-5.0); Alkaline Phosphatase 168 U/L (45-117); Aspartate Aminotransferase 14 U/L (15-37); Bilirubin,Total 0.2 mg/dl (0.2-1); Blood Urea Nitrogen 63 mg/dl (7-18); Carbon Dioxide 19 mmol/L (21-32); Chloride 113 mmol/L (98-107); Creatinine Clr Calc Pharmacy 8.9 ml/min; Est GFR (African American) 7.4; Est GFR (Non-African American) 6.4; Globulin 4.5 gm/dl (2.5-4.0); Glucose 80 mg/dl (70-99); Potassium 5.7 mmol/L (3.5-5.1); Sodium 137 mmol/L (136-145); Thyroid Stimulating Hormone 0.315 uIu/ml (0.300-4.500); Total Protein 8.1 gm/dl (6.4-8.2); Troponin I < 0.015 ng/ml (0-0.045)
[2020-09-03] MEDS ORDERED: SODIUM CHLORIDE 0.9% 1000ML 500 ML IV ONE ×2 (17:43→19:56)
--- NOTE | 2020-09-03 18:09 | CT Scan Report ---
CT OF THE CERVICAL SPINE CLINICAL HISTORY: Neck pain status post trauma COMPARISON STUDY: 08/17/2020 CT DOSE: TECHNIQUE: CT scan of the cervical spine was performed from the skull base to the thoracic inlet. Deisi ges are reviewed in the axial, sagittal, and coronal planes. IV contrast was not administered for thi s examination. A dose lowering technique was utilized adhering to the principles of ALARA. FINDINGS: There is a stable calcification visualize just superior to the left arytenoid cartilage. The visualized portions of the lung apices reveal no evidence of pneumothorax. The prevertebral soft tissues are normal. No fractures or subluxations are visualized. There are multilevel degenerative changes. There is a stable C5 sclerotic lesion. IMPRESSION: No evidence of acute fracture or traumatic subluxation. ACT 112: Negative or not required by law. Electronically signed by: Hank Coronado M.D. 09/03/2020 6:08 PM
--- NOTE | 2020-09-03 18:09 | CT Scan Report ---
CT head/brain wo con CLINICAL HISTORY: Head trauma. Head pain. COMPARISON STUDY: 08/17/2020 TECHNIQUE: Axial CT of the brain is performed from the vertex to the skull base. IV contrast was not administered for this examination. A dose lowering technique was utilized adhering to the principles of ALARA. CT DOSE: FINDINGS: No intra or extra-axial mass lesions are visualized. There is no CT evidence of acute cortical infarc tion. There is no evidence of midline shift. There is no acute hemorrhage. No calvarial fractures ar e visualized. There are patchy white matter hypodensities likely on a small vessel basis. There is no evidence of pathologic ventricular dilatation. There is no evidence of acute sinusitis The examination is mildly degraded due to motion artifact. IMPRESSION: No acute intracranial findings ACT 112: Negative or not required by law. Electronically signed by: Hank Coronado M.D. 09/03/2020 6:08 PM
--- NOTE | 2020-09-03 18:21 | CT Scan Report ---
CT SCAN OF THE ABDOMEN AND PELVIS WITHOUT CONTRAST CLINICAL HISTORY: acute renal failure TRAUMA COMPARISON STUDY: 08/25/2020 TECHNIQUE: CT scan of the abdomen and pelvis was performed from the lung bases to the proximal femurs . Images are reviewed in the axial, sagittal, and coronal planes. IV contrast was not administered fo r this examination. A dose lowering technique was utilized adhering to the principles of ALARA. CT DOSE: 4435.65 mGy.cm FINDINGS: Lower chest: There is a 9 mm left lower lobe calcified granuloma. There are no pleural effusions. The re is a moderate hiatal hernia. Liver: The unenhanced liver is normal in size, contour, and attenuation. There is no intrahepatic george iary ductal dilatation. Gallbladder: Surgically absent Spleen: Normal in size and attenuation. Pancreas: Unremarkable. Adrenal glands: Unremarkable. Kidneys: There are bilateral hypodense renal lesions consistent with cysts. The largest arises from t he upper pole the left kidney measuring 8.5 cm. There are multiple bilateral renal calculi. There is mild dilatation left renal pelvis with a suggestion of mild uroepithelial thickening. No ureteral or bladder calculi are visualized. Bowel: There are no transition zones to indicate bowel obstruction. The patient is status post a righ t subtotal colectomy with ileosigmoid anastomosis. No acute inflammatory changes are visualized. Ther e are small ventral hernias. Peritoneum: There is no intraperitoneal free air or abdominal ascites. Vasculature: The abdominal aorta is normal in course and caliber. Adenopathy: None. Pelvic viscera: The uterus appears surgically absent Skeletal structures: No destructive osseous lesions are seen. IMPRESSION: 1. Postsurgical changes of a subtotal colectomy with ileosigmoid anastomosis 2. No evidence of bowel obstruction. No evidence of free air 3. Moderate hiatal hernia 4. Bilateral nephrolithiasis. Persistent small staghorn calculus within a mildly dilated left renal p ronna. Persistent mild uroepithelial thickening on the left. 5. Bilateral renal cysts including a 8.5 cm upper pole left renal cyst 6. Surgically absent gallbladder and uterus. ACT 112: Negative or not required by law. Electronically signed by: Hank Coronado M.D. 09/03/2020 6:19 PM
[2020-09-03] MEDS ORDERED: SODIUM CHLORIDE 0.9% 1000ML 1,000 ML IV ONE (18:25)
[2020-09-03] MEDS ORDERED: cefTRIAXone SODIUM 2,000 MG/70 ML BAG IV STA (18:29)
[2020-09-03 18:43] LABS: Appearance Urine Cloudy (Clear); Blood Urine 1+ (Negative); Color Urine Yellow; Glucose Urine UA Negative (Negative); Ketones Urine Trace (Negative); Leukocyte Esterase Urine 3+ (Negative); Nitrite Urine Negative (Negative); Protein Urine 3+ (Negative); Specific Gravity Urine 1.025 (1.000-1.030); Urobilinogen Urine Negative (Negative); pH Urine 5.5 (4.5-7.5)
[2020-09-03 18:45] LABS: Bilirubin Urine Negative (Negative); Ictotest Urine Negative (Negative)
[2020-09-03] MEDS ORDERED: DEXTROSE 50% 50 ML SYRINGE IV STA ×2 (18:49→19:30)
[2020-09-03] MEDS ORDERED: STAT IV STA (18:50)
[2020-09-03 18:52] LABS: WBC Urine >30 /hpf (0-5)
[2020-09-03 18:53] LABS: Bacteria Urine 1+ (Negative); Epithelial Cell Urine 0-5 /lpf (0-5)
[2020-09-03] MEDS ORDERED: INSULIN HUMAN REGULAR PER UNIT 10 UNITS in SYRINGE 9.9 ML IV ONE (19:00)
--- NOTE | 2020-09-03 19:21 | History & Physical Report ---
Date of Service September 03, 2020 Assessment & Plan (1) Acute hypotension: This is a 64yo F with a PMH of DM II, dyslipidemia, CALI, asthma/COPD, bronchiectasis, HTN, CKD III who presents to the ED with worsening weakness and recurrent falls and was found to have acute hypotension and acute renal failure as well as complicated UTI. - In setting of acute renal failure and significant dehydration from very little PO fluid intake at home. BP now 85/45 after 2 L NSS bolus in ED. Baseline BP ~ 95/60 - Patient is A&Ox4. Continue IV fluids with transition to bicarb drip. Holding lisinopril and Toprol -Evidence of UTI but afebrile, mild leukocytosis, no tachycardia or tachypnea. Lactic acid wnl (2) Acute renal failure: Creatinine significantly elevated at 6.25 (1.48 during admission last week) with hyperkalemia of 5.7. Bicarb 19 -Significant dehydration. Giving 2 L bolus in ED, transitioning to bicarb drip -Given calcium gluconate for hyperkalemia. Giving 1/2 ampule of D50 prior to administration of IV insulin due to hypoglycemia -Routine nephrology consult -Pharm consult for renal dosing of home meds (3) Recurrent falls: (4) Weakness: Has had multiple falls of the same nature over the past few months and was admitted with similar symptoms last month -Poor PO intake at home, renal failure, deconditioning -IV fluid resuscitation, fall precautions, PT/OT evaluation, discharge planning (5) Complicated UTI (urinary tract infection): Abnormal UA with urine, blood cultures pending. Continue empiric Rocephin and IV fluids -CT abd/pelvis with bilateral nephrolithiasis. Persistent small staghorn calculus within a mildly dilated left renal pelvis -Discussed findings with urology, who do not feel procedure is indicated since no strone is obstructing (6) Depression: Appears depressed on exam with flattened affect, poor appetite. Continue duloxetine (7) DM type 2 (diabetes mellitus, type 2): -Hold home agents -SSI while in-patient -BSG AC HS (8) Obesity hypoventilation syndrome: Also has CALI -CPAP intolerant. Monitor for hypoxia DVT Ppx: SQ heparin Code status: FULL PCP: Mannie Dispo: Admit to PCU. Discharge planning ordered. Patient seen in collaboration with Dr. Turner. Please see addendum. History of Present Illness Chief Complaint: weakness, fall Primary Care Provider: Lo Chand DO This is a 64yo F with a PMH of DM II, dyslipidemia, CALI, asthma/COPD, bronchiectasis, HTN, CKD III who presents to the ED with worsening weakness and recurrent falls. Has had multiple falls of the same nature over the past few months and was admitted with similar symptoms last month. States that she becomes lightheaded, weak and like "her legs are giving out from under her" when she is ambulating to either sit or lie down. Denies head trauma or loss of consciousness. Admits to very poor appetite, which she attributes to side effects from medications. Also denies fluid intake due to fear of urinary incontinence occurring. Has not eaten anything all day today. Earlier today, she was walking to her bed when she felt weak and fell down. States that her career services coordinator witnessed it and she came to ED for further evaluation. Continues to feel generally weak and fatigued. Does have history of O2 use at home but is no longer on that. Also with history of CALI and obesity hypoventilation syndrome but is noncompliant with CPAP. In ED, patient found to be afebrile. BP ranging from 60/37-98/59 but alert and oriented x 4. Has received 2L NSS while in ED. BSG of 70. WBC of 12.23 with lactic acid pending. Creatinine significantly elevated at 6.25 (1.48 during admission last week) with hyperkalemia of 5.7. Bicarb 19. UA abnormal. CT abd/pelvis with postsurgical changes of a subtotal colectomy with ileosigmoid anastomosis. No evidence of bowel obstruction. No evidence of free air. Bilateral nephrolithiasis. Persistent small staghorn calculus within a mildly dilated left renal pelvis. Denies any fever, chills, headache, productive cough, chest pain, palpitations, shortness of breath, abdominal pain, nausea, vomiting, dysuria, constipation or diarrhea. Allergies Allergy/AdvReac Type Severity Reaction Status Date / Time salicylates Allergy Severe SHORTNESS Verified 09/03/20 17:07 OF BREATH Iodinated Contrast Media Allergy Intermediate EYES Verified 09/03/20 17:07 SWELLING/Hives amoxicillin [From Augmentin] Allergy Mild Rash Verified 09/03/20 17:07 aspirin Allergy Mild FACIAL Verified 09/03/20 17:07 SWELLING clavulanic acid Allergy Mild Rash Verified 09/03/20 17:08 [From Augmentin] hydromorphone Allergy Mild RASH/ITCHIN Verified 09/03/20 17:08 G fentanyl Allergy itching/felt Verified 09/03/20 17:08 like throat closing meperidine AdvReac Intermediate ITCH Verified 09/03/20 17:08 morphine AdvReac Intermediate ITCH Verified 09/03/20 17:09 tramadol AdvReac Mild itch Verified 09/03/20 17:09 Home Medications Medication Instructions Recorded Confirmed Type atorvastatin [Lipitor] 40 mg PO QPM 07/12/18 09/03/20 History clopidogrel [Plavix] 75 mg PO QPM 07/12/18 09/03/20 History gabapentin 300 mg PO TID 07/12/18 09/03/20 History pantoprazole [Protonix] 40 mg PO BID 07/12/18 09/03/20 History riboflavin (vitamin B2) 400 mg PO QPM 07/12/18 09/03/20 History duloxetine 60 mg PO QAM 10/16/18 09/03/20 History cholecalciferol (vitamin D3) 2,000 unit PO QAM 05/16/19 09/03/20 History [Vitamin D3] oxcarbazepine [Trileptal] 300 mg PO BID 05/16/19 09/03/20 History albuterol sulfate 2 puff INHALATION Q4H PRN 07/21/19 09/03/20 History metoprolol succinate 75 mg PO BID 07/21/19 09/03/20 History magnesium oxide 400 mg PO HS 10/05/19 09/03/20 History doxepin 100 mg PO HS 11/30/19 09/03/20 History ferrous sulfate 325 mg PO BID 11/30/19 09/03/20 History glipizide [Glucotrol XL] 2.5 mg PO DAILY #30 tab 02/12/20 09/03/20 Rx Forteo 20 mcg SUBCUT Q14D 05/06/20 09/03/20 History Saccharomyces boulardii [Florastor] 250 mg PO BID 08/17/20 09/03/20 History lidocaine 1 patch TOPICAL DAILY 08/17/20 09/03/20 History lisinopril 2.5 mg PO DAILY 08/17/20 09/03/20 History ondansetron 4 mg PO Q8H PRN 08/17/20 09/03/20 History Past Med/Surg History Medical History Anxiety Asthma CHF (congestive heart failure) Chronic back pain Chronic headaches Chronic renal insufficiency stage 3, following with S nephrology ([place]) COPD (chronic obstructive pulmonary disease) Deep vein thrombosis LLE - COULD NOT RECALL DATE - REPORTS SHE WAS TREATED AT [facility] W/ BLOOD THI NNERS Degenerative disc disease Depression Diabetes mellitus, type 2 GERD (gastroesophageal reflux disease) Gram negative septicemia History of colon cancer 2012 S/P BOWEL RESECTION. History of esophageal dilatation Hyperlipidemia Hypertension Kidney stones Morbid obesity with BMI of 40.0-44.9, adult Myocardial Infarction 03/2018--> [facility] -- CARDIAC CATH --> NO STENTS/ANGIOPLASTY PER PT REPORT -- POOR HISTORIAN? REPORTS SHE IS ON PLAVIX FOR HEART - DENIES STENTS - DENIES ARRHYTHMIA - FOLLOWS W/ DR. TORRES On anticoagulant therapy plavix daily On home oxygen therapy 2L N/C at all times - states MD stopped this, patient states she is no longer using Osteoarthritis Poor historian Pyelonephritis Recurrent falls Seizure pt states "i think i had them a long time ago". no other information. Sepsis Surgical History H/O hand surgery RIGHT History of appendectomy History of bilateral cataract extraction History of blepharoplasty History of bowel resection d/t colon cancer History of cardiac cath 03/2018 - [place] - DENIES STENTS/ANGIOPLASTY - [facility] - FOLLOWS W/ DR. 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 Physical Exam Physical Exam: General Appearance: vitals as above, sitting up in bed, conversing easily, morbidly obese, pale Head: normocephalic, atraumatic Eyes: normal inspection, PERRL, conjunctivae normal, anicteric sclerae ENT: external ear and nose normal, oropharynx normal Neck: normal visual inspection, trachea midline, no thyromegaly Respiratory: normal respiratory effort, lungs clear to auscultation, no wheeze, rales, rhonchi. No accessory muscle use Cardiovascular: regular rate, rhythm, no murmur, normal peripheral pulses, 1+ BLE edema. Vessels: unable to assess for JVD given habitus Chest: normal inspection of chest Abdomen/GI: normal bowel sounds, soft, nontender, no hepatosplenomegaly : Purvis in place Extremities/Musculoskeletal: no cyanosis or clubbing, extremities motor strength 5/5 Neurologic: PERRL, EOMI, accommodation nl, no face palsy, no dysarthria, CN's II-XI intact bilaterally and moves all extremities Psychiatric: A+Ox3, flattened affect Skin: no rashes, normal color, warm/dry Results & Data Results & Data ([facility]) Vital Signs (Past 12 Hours) Vital Signs Temp Pulse Pulse Resp BP BP Pulse Ox 09/03/20 18:32 62 18 73/48 L 93 09/03/20 18:30 62 15 73/48 L 93 09/03/20 18:22 64 14 56/44 L 93 09/03/20 18:15 64 15 60/37 L 09/03/20 18:06 65 15 09/03/20 17:47 66/43 L 09/03/20 17:45 61 15 93 09/03/20 17:30 64 19 71/39 L 94 09/03/20 17:15 63 14 67/36 L 92 09/03/20 17:02 68 14 73/47 L 93 09/03/20 17:01 89 18 69/49 L 91 09/03/20 17:00 91 09/03/20 16:59 72 21 59/34 L 92 09/03/20 16:56 71 22 94 09/03/20 16:52 69 17 64/50 L 93 09/03/20 16:30 74 18 09/03/20 16:22 20 76/45 L 93 09/03/20 16:13 70 16 66/42 L 94 09/03/20 16:00 70 13 68/44 L 93 09/03/20 15:47 36.8 C 79 18 98/59 L 98 09/03/20 15:39 75 17 97 09/03/20 15:37 76 16 98/59 L 97 Laboratory Results Short CBC 09/03/20 Range/Units 16:34 WBC 12.23 H (4.8-10.8) K/uL Hgb 12.0 (12.0-16.0) g/dL Hct 39.4 (37-47) % Plt Count 297 (130-400) K/uL BMP 09/03/20 16:34 Sodium 137 Potassium 5.7 H Chloride 113 H Carbon Dioxide 19 L BUN 63 H Creatinine 6.25 H* Glucose 80 Calcium 9.0 Cardiac Enzymes 09/03/20 Range/Units 16:34 Troponin I < 0.015 (0-0.045) ng/ml Liver Function 09/03/20 Range/Units 16:34 Total Bilirubin 0.2 (0.2-1) mg/dl AST 14 L (15-37) U/L ALT 25 (12-78) U/L Alkaline Phosphatase 168 H (45-117) U/L Albumin 3.6 (3.4-5.0) gm/dl Urine 09/03/20 Range/Units 18:35 Urine Color Yellow Urine Appearance Cloudy A (Clear) Urine pH 5.5 (4.5-7.5) Ur Specific [place] 1.025 (1.000-1.030) Urine Protein 3+ H (Negative) Urine Glucose (UA) Negative (Negative) Diagnostic Findings Head CT: IMPRESSION: No acute intracranial findings Cervical spine CT: IMPRESSION: No evidence of acute fracture or traumatic subluxation. CXR: IMPRESSION: No active disease in the chest. Shoulder XR: IMPRESSION: No fractures or dislocations identified. CT abd/pelvis: IMPRESSION: 1. Postsurgical changes of a subtotal colectomy with ileosigmoid anastomosis 2. No evidence of bowel obstruction. No evidence of free air 3. Moderate hiatal hernia 4. Bilateral nephrolithiasis. Persistent small staghorn calculus within a mildly dilated left renal pelvis. Persistent mild uroepithelial thickening on the left. 5. Bilateral renal cysts including a 8.5 cm upper pole left renal cyst 6. Surgically absent gallbladder and uterus. Supervising Physician Co-Signing Physician Notes Patient is a 64-year-old female with history of diabetes, dyslipidemia, obstructive sleep apnea, CKD stage III and other medical problems presents with history of worsening generalized weakness, multiple falls and poor oral intake. She was recently discharged from [facility] after being treated for pneumonia. She admits to falling despite using walker for ambulation. She denies any head trauma, loss of consciousness. Please review HPI for complete details of presentation. She is hypotensive, hypoglycemic while in ED. Also noted hyperkalemia at 5.7, leukocytosis 12.23, UA suggestive of UTI, metabolic acidosis with bicarb of 19. PERRI with creatinine level 6.25. Discussed with manager internship on-call--recommended IV fluids and holding nephrotoxic agents correcting hyperkalemia. CT abdomen showed bilateral nephrolithiasis, persistent small staghorn calculus within the mildly dilated left renal pelvis. Persistent mild uroepithelial thickening of the left, bilateral renal cysts. Discussed CT abdominal findings with urologist on-call recommended no intervention needed. Lactate levels are normal. Covid screen is negative. On exam patient is morbidly obese, no apparent distress, normocephalic atraumatic, EOMI, lungs are clear to auscultation, normal breath sounds, S1-S2, no audible murmur, 1+ bilateral lower extremity edema, abdomen soft, nontender, normal bowel sounds, alert, awake, oriented, grossly no focal neurologic deficits, +Flat affect. Patient is admitted for management of acute kidney injury on CKD stage III, acute metabolic acidosis, possible urinary tract infection, hypotension, hyperkalemia. Will give aggressive IV fluids. Holding her antihypertensives. started on bicarb drip as recommended by nephrology. Started on Rocephin and consider to broaden antibiotics if no response. Blood, urine cultures obtained. Start on hypoglycemia protocol. Will renally dose all home medications given worsened renal function. Agree with insulin therapy as needed while hospitalized and holding home medications for diabetes. Agree with holding lisinopril given hyperkalemia. Received calcium gluconate in ED. Will repeat BMP and consider insulin with dextrose if needed if hyperkalemia persists. Bladder scan as needed. Will repeat EKG in the morning. Low th reshold to transfer to ICU for pressors if remains hypotensive despite aggressive IV fluids. PT OT, fall precautions. I personally reviewed the record. Patient is interviewed and examined at bedside. Patient's care is coordinated with Olivia Jo PA-C. Please refer to the documentation above for details of patient's presentation and for discussion of other issues.
[2020-09-03] MEDS ORDERED: SODIUM BICARBONATE 8.4% 100 MEQ in DEXTROSE 5% 1,000 ML IV SCH (19:30)
[2020-09-03] MEDS ORDERED: CALCIUM GLUCONATE 10% 1,000 MG in SODIUM CHLORIDE 0.9% 50 ML IV ONE (19:30)
[2020-09-03] MEDS ORDERED: ALBUTEROL HFA 8 GM INHALER INH PRN (20:32)
[2020-09-03] MEDS ORDERED: GLUCOSE 40% GEL 15 GM TUBE PO PRN (20:45)
[2020-09-03] MEDS ORDERED: DEXTROSE 50% 50 ML SYRINGE IV PRN (20:45)
[2020-09-03] MEDS ORDERED: GLUCOSE 10 TABS/TUBE PO PRN (20:45)
[2020-09-03] MEDS ORDERED: ACETAMINOPHEN 325 MG TAB PO PRN (20:45)
[2020-09-03] MEDS ORDERED: GLUCAGON FOR INJ 1 MG VIAL SQ PRN (20:45)
[2020-09-03] MEDS ORDERED: NON-FORMULARY MEDICATION (Riboflavin (Vitamin B2) 400 mg Tablet) PO SCH (21:00)
[2020-09-03] MEDS ORDERED: OXcarbazepine 150 MG TABLET PO SCH (21:00)
[2020-09-03] MEDS ORDERED: FERROUS SULFATE 325 MG TAB PO SCH (21:00)
[2020-09-03] MEDS ORDERED: ATORVASTATIN 40 MG TAB PO SCH (21:00)
[2020-09-03] MEDS ORDERED: INSULIN ASPART 100 UNITS/ML 3 ML PEN SC SCH (21:00)
[2020-09-03] MEDS ORDERED: [UNRECOGNIZED DRUG - REMARK] PRN (21:12)
[2020-09-03] MEDS: MAGNESIUM OXIDE 400 MG TAB PO SCH (21:37)
[2020-09-03] MEDS: PANTOprazole 40 MG TAB PO SCH (21:37)
[2020-09-03] MEDS: SACCHAROMYCES BOULARDII 250 MG CAP PO SCH (21:37)
[2020-09-03] MEDS: CLOPIDOGREL BISULFATE 75 MG TAB PO SCH (21:37)
[2020-09-03] MEDS: OXcarbazepine 150 MG TABLET PO SCH (21:38)
[2020-09-03] MEDS ORDERED: GABAPENTIN 100 MG CAP PO SCH (22:00)
--- NOTE | 2020-09-03 22:09 | Electrocardiogram Report ---
Test Reason : Blood Pressure : / mmHG Vent. Rate : 074 BPM Atrial Rate : 074 BPM P-R Int : 216 ms QRS Dur : 072 ms QT Int : 340 ms P-R-T Axes : 015 -10 039 degrees QTc Int : 377 ms Sinus rhythm with 1st degree A-V block Low voltage QRS Cannot rule out Anterior infarct , age undetermined Inferior infarct Abnormal ECG When compared with ECG of 17-AUG-2020 14:45, TX interval has increased Confirmed by Kalia Puente ([id number]) on 09/03/2020 10:09:44 PM Referred By: Confirmed By:Kalia Puente
[2020-09-03 22:38] LABS: Calcium 8.6 mg/dl (8.5-10.1); Creatinine Clr Calc Pharmacy 9.5 ml/min; Est GFR (African American) 7.8; Est GFR (Non-African American) 6.7; Potassium 5.5 mmol/L (3.5-5.1)
[2020-09-03] MEDS ORDERED: STAT IV Infusion **Titration per Protocol STA (23:55)
[2020-09-04] MEDS ORDERED: CEFEPIME CONSULT ACTIVE PRN (00:18)
[2020-09-04] MEDS: NOREPINEPHRINE/D5W 8 MG/508 ML BAG IV SCH (00:26)
[2020-09-04] MEDS ORDERED: DAPTOmycin 400 MG in SYRINGE 0 ML IV SCH (01:00)
[2020-09-04] MEDS ORDERED: CEFEPIME 2,000 MG in SYRINGE 0 ML IV SCH (01:00)
--- NOTE | 2020-09-04 01:24 | Procedure Note ---
Procedure Note Date of Service September 04, 2020 Note INTERNAL JUGULAR CENTRAL LINE PROCEDURE NOTE: Procedure: Internal Jugular Central Line Placement Attending: Dr. Joe Cohn Provider: NICHOL Baldwin Indication: Central Drug Administration. Anesthesia:Lidocaine 1% Line placed emergently in the setting of septic shock requiring vasopressor support and need for central access. A time-out was completed verifying correct patient, procedure, site, positioning, and implants(s) or special equipment if applicable. Patients right neck was cleansed and draped in the typical sterile fashion using Chloraprep. The Internal Jugular Vein and Carotid Artery were identified using ultrasound. The superficial tissue was anesthetized using 3 mL of 1% lidocaine without epinephrine under direct visualization with the ultrasound. After adequate anesthetization was achieved, the Internal Jugular vein was cannulated under direct ultrasound guidance using an introducer needle on a syringe. Good venous blood return was maintained prior to removal of syringe from introducer needle. Using Seldinger Technique, a guide wire was advanced through the introducer needle without resistance. The introducer needle was removed and ultrasound images were obtained of the guide wire within the Internal Jugular Vein and saved to the patients medical record. A small incision was made in penetrating fashion at the guide wire insertion site utilizing an 11 blade scalpel. The dilator was advanced to the vessel without resistance. The dilator was exchanged for the triple lumen catheter which was advanced into the vessel without resistance. The guide wire was removed intact from the catheter without issue. Claves were placed on each catheter tip with confirmation of good blood flow from each lumen. Each port was easily flushed with sterile saline. The catheter was placed at 15 cm and sut[address] in place. BioPatch was applied to the catheter and a sterile Tegaderm dressing was applied over the catheter with careful attention to sterility. Patient tolerated procedure well. No immediate complic ations were met. Post procedure x-ray was completed, placement was appropriate and no pneumothorax was noted. Images obtained are saved for permanent record Procedural Ultrasound Guidance: Procedure Date: 09/04/2020 Indication: Central venous catheter insertion Attending: Dr. Joe Cohn Provider: NICHOL Baldwin Artery AND Vein visualized: Yes Compressible Vein: Yes Guidewire or Short Catheter seen in vein prior to dilation: Yes Line confirmed in Vein with ultrasound: Yes Images obtained are saved for permanent record. Coding CPT Codes Tubes, Drains, and Vasc Access - Tubes, Drains, and Vasc Access: [id number] Place catheter in vein superior or inferior vena cava ([id number]) Tubes, Drains, and Vasc Access - Tubes, Drains, and Vasc Access: [id number] Ultrasound Guidance For Vascular ([id number]) [facility] [place] Procedure Codes (Charges) Tubes, Drains, and Vasc Access Procedure 3: Tubes, Drains, and Vasc Access: [id number] Place catheter in vein superior or inferior vena cava Procedure 4: Tubes, Drains, and Vasc Access: [id number] Ultrasound Guidance For Vascular
--- NOTE | 2020-09-04 01:24 | Critical Care Consultation ---
Date of Consultation September 04, 2020 Assessment & Plan (1) Septic shock: Reason Critically Ill: 64-year-old female presents to the ICU as transfer from upstairs for ongoing hypotension now requiring vasopressors in the setting of sepsis. Neuro - Patient reports weakness and malaise over the past several days with multiple falls over the past several weeks which is led to multiple admission. CT head and spine were negative for acute process. She is currently alert and oriented but very lethargic. Metabolic encephalopathy secondary to infection/acute renal failure could be contributing. She has an active UTI and a BUN of 60. Cardiac - Shockpatient was given multiple crystalloid boluses in the ED and on floor, remains hypotensive and now requiring Levophed drip -Most likely septic shock in the setting of urosepsis, see management below -Echo 1 year ago with a EF 65 to 70%, grade 1 diastolic dysfunction -Troponin negative -Follow-up cortisol level -Central line and A-line inserted on arrival to ICU, titrate levo drip for maps greater than 65 -Continuous monitoring on telemetry Respiratory - History of asthma, COPD, OHS and noncompliant with CPAP. Currently maintaining sats on 2 L nasal cannula Chest x-ray in the emergency department was without active disease DuoNebs as needed Continuous monitoring pulse ox GI - History of colon cancer and postsurgical changes of subtotal colectomy with ileosigmoid anastomosis noted on CT abdomen N.p.o. Moderate hiatal hernia noted on CT abdomencontinue PPI RENAL/LYTES - Acute renal failure on CKD stage IIIpatient presents to the ER with creatinine 6.25 with baseline 1.45 on last admission, hyperkalemic, metabolic acidosis with pH 7.12 -Given D50 and insulin push, Kayexalate, bicarb drip -Nephrology aware, currently undergoing medical management and will likely undergo dialysis this morning if renal function is unimproved -FeNa of 1.6%, likely intrinsic injury, consider ATN from hypotension most likely cause -Bilateral renal cyst and bilateral nephrolithiasis with persistent small staghorn calculus within a mildly dilated left renal pelvis noted on CT abdomen -Nephrology following will follow up recommendations -Avoid nephrotoxins and renally adjust medications -Continue to monitor frequent BMPs and pH with ABGs - Foleystrict I's and O's Bilateral nephrolithiasis and persistent small staghorn calculus with and a mildly dilated left renal pelvis with persistent mild uroepithelial thickening on the left was noted and CT abdomen -Urology aware and following, no intervention needed at this time as there is no obstruction ENDO - DM type IIholding home dose glipizide in the setting of renal failure -Sliding scale, ICU hyperglycemic protocol TSH within normal limits HEME - H&H stable, monitor routine CBCs ID - Sepsis? -UA +3 bacteria, urine culture pending, blood cultures pending, pro Christoph pending, lactate thus far negative and patient remains afebrile - no pulm infiltrates on CXR - nasal MRSA neg - Covid 19 pcr neg continue cefepime and daptomycin for now LINES/IV ACCESS - CVC, A-line, PIV's DVT PROPHYLAXIS - SCDs I have personally spent 50 minutes of critical care time in the direct management of this patient. This is a life/limb threatening event. This includes time spent evaluating patient, direct bedside care, chart review, placing orders, interpretation of diagnostic studies, discussion with consultants, patient, and family members, as well as other required patient management activities. This time is exclusive of all separately billable procedures, and teaching time and separate from and in addition to any other critical care service time. Thank you for allowing us to participate in the care of this patient. Please refer to my attending physician's documentation for any further recommendations. (2) Acute UTI (urinary tract infection): (3) Complicated UTI (urinary tract infection): (4) Acute renal failure: (5) Acute hypotension: (6) Recurrent falls: (7) Weakness: (8) GERD (gastroesophageal reflux disease): (9) Renal calculi: (10) CKD (chronic kidney disease), stage III: (11) Osteoarthritis: (12) HTN (hypertension): (13) HLD (hyperlipidemia): (14) Asthma: (15) Depression: (16) S/P cholecystectomy: (17) History of hysterectomy: (18) History of colectomy: (19) Lethargy: (20) Obesity hypoventilation syndrome: (21) COPD (chronic obstructive pulmonary disease): (22) DM type 2 (diabetes mellitus, type 2): (23) Tachycardia: (24) Fever: (25) Acute renal failure superimposed on stage 3 chronic kidney disease: (26) Metabolic acidosis: Supervising Physician Co-Signing Physician Notes Patient seen and examined. EMR reviewed. Discussed with critical care ELIZABETH and with room cleaner this morning. 64-year-old female with multiple medical comorbidities including subtotal colostomy and renal cysts presenting with hypotension and acute renal failure and acidosis. She has received bicarb overnight but pH fails to be improving and decision was made to proceed with dialysis this morning for refractory acidosis. Unclear if this is RTA as her lactate was normal. Dialysis line was placed. Please refer to separate procedure note. Will defer additional electrolytes to nephrology. The patient was empirically placed on antibiotics for presumed sepsis. Not convinced this is septic shock given her normal lactate. Her urinalysis is suggestive of potential infection and she has had sensitive E. coli in the past. We will hold Neurontin given her renal function. Wean pressors as tolerated. Hopefully calcium with dialysis will improve her pressor requirement. Will de-escalate to cefepime and await urine cultures. She has been initiated on hydrocortisone. We will add Vladislav History of Present Illness Attending Physician: Danny Turner MD History of Present Illness 64-year-old female with a past medical history of DM type II, dyslipidemia, CALI/OHS, COPD/asthma, CKD stage III, colon cancer s/p colectomy who presented to the emergency department earlier this evening with complaints of worsening weakness and recurrent falls. She was admitted last month with similar complaints. She denies trauma or LOC and CT head and cervical spine are both negative. In the emergency department the patient was found to be hypotensive and in acute renal failure with potassium 5.8, creatinine 6.25. Urinalysis suggestive of UTI with cultures to follow. Chest x-ray unremarkable. CAT of the abdomen did reveal bilateral nephrolithiasis, persistent small staghorn calculus with a mildly dilated left renal pelvis, and bilateral renal cyst. She was initially bolused with 2 L NSS in the ED, an additional 1 L crystalloid when admitted to PCU. Patient however remained hypotensive and is now requiring Levophed and transferred to ICU. Arterial line and CVC inserted on arrival. Will likely undergo dialysis today if renal function does not show improvement. We will continue to medically manage metabolic acidosis and hyperkalemia in the ICU overnight as there is no dialysis services at night and tertiary centers are not taking ICU transfer at this time due to hospital overflow related to COVID- 19. Currently patient is lethargic but is alert and oriented on exam. She reports episodes of feeling lightheaded and having to sit down, and multiple falls over the past few weeks. She currently denies headache, dizziness, sore throats or fevers, productive cough, shortness of breath, chest pain or palpitations, abdominal pain, nausea, diarrhea or changes in urinary stream. She currently reports feeling very tired and worn out. Currently she is on a manageable dose of Levophed undergoing dialysis if needed. Will need insertion of HD cath, and can likely do [id number] exchange of her right IJ CVC triple-lumen and exchanged for HD cath with pigtail. Will follow up with nephrology this a.m. Allergies Allergy/AdvReac Type Severity Reaction Status Date / Time salicylates Allergy Severe SHORTNESS Verified 09/03/20 17:07 OF BREATH Iodinated Contrast Media Allergy Intermediate EYES Verified 09/03/20 17:07 SWELLING/Hives amoxicillin [From Augmentin] Allergy Mild Rash Verified 09/03/20 17:07 aspirin Allergy Mild FACIAL Verified 09/03/20 17:07 SWELLING clavulanic acid Allergy Mild Rash Verified 09/03/20 17:08 [From Augmentin] hydromorphone Allergy Mild RASH/ITCHIN Verified 09/03/20 17:08 G fentanyl Allergy itching/felt Verified 09/03/20 17:08 like throat closing meperidine AdvReac Intermediate ITCH Verified 09/03/20 17:08 morphine AdvReac Intermediate ITCH Verified 09/03/20 17:09 tramadol AdvReac Mild itch Verified 09/03/20 17:09 Home Medications Medication Instructions Recorded Confirmed Type atorvastatin [Lipitor] 40 mg PO QPM 07/12/18 09/03/20 History clopidogrel [Plavix] 75 mg PO QPM 07/12/18 09/03/20 History gabapentin 300 mg PO TID 07/12/18 09/03/20 History pantoprazole [Protonix] 40 mg PO BID 07/12/18 09/03/20 History riboflavin (vitamin B2) 400 mg PO QPM 07/12/18 09/03/20 History duloxetine 60 mg PO QAM 10/16/18 09/03/20 History cholecalciferol (vitamin D3) 2,000 unit PO QAM 05/16/19 09/03/20 History [Vitamin D3] oxcarbazepine [Trileptal] 300 mg PO BID 05/16/19 09/03/20 History albuterol sulfate 2 puff INHALATION Q4H PRN 07/21/19 09/03/20 History metoprolol succinate 75 mg PO BID 07/21/19 09/03/20 History magnesium oxide 400 mg PO HS 10/05/19 09/03/20 History doxepin 100 mg PO HS 11/30/19 09/03/20 History ferrous sulfate 325 mg PO BID 11/30/19 09/03/20 History glipizide [Glucotrol XL] 2.5 mg PO DAILY #30 tab 02/12/20 09/03/20 Rx Forteo 20 mcg SUBCUT Q14D 05/06/20 09/03/20 History Saccharomyces boulardii [Florastor] 250 mg PO BID 08/17/20 09/03/20 History lidocaine 1 patch TOPICAL DAILY 08/17/20 09/03/20 History lisinopril 2.5 mg PO DAILY 08/17/20 09/03/20 History ondansetron 4 mg PO Q8H PRN 08/17/20 09/03/20 History Patient History Medical History Anxiety Asthma CHF (congestive heart failure) Chronic back pain Chronic headaches Chronic renal insufficiency stage 3, following with [facility] nephrology ([place]) COPD (chronic obstructive pulmonary disease) Deep vein thrombosis LLE - COULD NOT RECALL DATE - REPORTS SHE WAS TREATED AT [facility] W/ BLOOD THINNERS Degenerative disc disease Depression Diabetes mellitus, type 2 GERD (gastroesophageal reflux disease) Gram negative septicemia History of colon cancer 2012 S/P BOWEL RESECTION. History of esophageal dilatation Hyperlipidemia Hypertension Kidney stones Morbid obesity with BMI of 40.0-44.9, adult Myocardial Infarction 03/2018--> [facility] -- CARDIAC CATH --> NO STENTS/ANGIOPLASTY PER PT REPORT -- POOR HISTORIAN? REPORTS SHE IS ON PLAVIX FOR HEART - DENIES STENTS - DENIES ARRHYTHMIA - FOLLOWS W/ DR. TORRES On anticoagulant therapy plavix daily On home oxygen therapy 2L N/C at all times - states MD stopped this, patient states she is no longer using Osteoarthritis Poor historian Pyelonephritis Recurrent falls Seizure pt states "i think i had them a long time ago". no other information. Sepsis Surgical History H/O hand surgery RIGHT History of appendectomy History of bilateral cataract extraction History of blepharoplasty History of bowel resection d/t colon cancer History of cardiac cath 03/2018 - [place] - DENIES STENTS/ANGIOPLASTY - [facility] - FOLLOWS W/ DR. TORRES History of colonoscopy History of cystoscopy History of esophagogastroduodenoscopy (EGD) History of kidney surgery at age 9 yrs "something was wrong and had to fix it" History of lithotripsy History of tooth extraction History of total abdominal hysterectomy and bilateral salpingo-oophorectomy Hx of cholecystectomy Family History Other Breast cancer Social History Smoking Status: Unknown if ever smoked Second Hand Exposure: No; Do You Dip or Chew Tobacco: No; Tobacco Cessation Education Requested by Patient: No Hx Alcohol Use: No Hx Substance Use: No Preferred Language: Danish Communication Ability: Effective 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: No Beliefs That Will Affect Care: None marital status: Current Living Situation: Alone Current Living Situation Comment: alone in [address] Other Information That Helps Us Care for You: No Feels Safe at Home: Yes Assistive Devices: Walker and Wheelchair Review of Systems Review of Systems: All systems reviewed & are unremarkable except as noted in HPI & below Physical Exam Constitutional: + lethargic and + overweight Eyes: PERRL, conjunctivae normal, anicteric sclerae ENMT: external ear and nose normal, oropharynx normal Neck: trachea midline, no thyromegaly Respiratory: normal respiratory effort, lungs clear to auscultation Cardiovascular: RRR, no murmur, no edema Heart Sounds: normal S1 and normal S2 Vessels: no JVD Extremities: normal capillary refill; no edema Gastrointestinal (Abdomen): normal bowel sounds, soft, nontender, no hepatosplenomegaly Musculoskeletal: no cyanosis or clubbing, extremities motor strength 5/5 Skin: no rashes, warm and dry Neurologic: PERRL, EOMI, accommodation nl, no face palsy, no dysarthria Psychiatric: Orientation: oriented x 3 Genitourinary: Indwelling Purvis catheter Results & Data Results & Data ([facility]) Vital Signs (Past 12 Hours) Vital Signs Temp Pulse Pulse Resp BP BP BP 09/04/20 01:01 61 09/04/20 00:54 65 19 128/74 09/04/20 00:44 67 19 132/82 09/04/20 00:34 62 18 130/77 09/04/20 00:22 63 20 69/48 L 09/03/20 23:39 36.3 C L 63 18 71/33 L 09/03/20 22:27 94/55 L 09/03/20 21:52 36.4 C L 70 16 88/62 L 09/03/20 20:45 36.4 C L 63 16 73/52 L 09/03/20 20:16 62 16 85/45 L 09/03/20 20:15 69 14 09/03/20 20:01 62 17 78/55 L 09/03/20 20:00 61 13 09/03/20 19:57 63 22 75/45 L 09/03/20 19:55 62 15 09/03/20 18:32 62 18 73/48 L 09/03/20 18:30 62 15 73/48 L 09/03/20 18:22 64 14 56/44 L 09/03/20 18:15 64 15 60/37 L 09/03/20 18:06 65 15 09/03/20 17:47 66/43 L 09/03/20 17:45 61 15 09/03/20 17:30 64 19 71/39 L 09/03/20 17:15 63 14 67/36 L 09/03/20 17:02 68 14 73/47 L 09/03/20 17:01 89 18 69/49 L 09/03/20 17:00 09/03/20 16:59 72 21 59/34 L 09/03/20 16:56 71 22 09/03/20 16:52 69 17 64/50 L 09/03/20 16:30 74 18 09/03/20 16:22 20 76/45 L 09/03/20 16:13 70 16 66/42 L 09/03/20 16:00 70 13 68/44 L 09/03/20 15:47 36.8 C 79 18 98/59 L 09/03/20 15:39 75 17 09/03/20 15:37 76 16 98/59 L BP Pulse Ox 09/04/20 01:01 09/04/20 00:54 99 09/04/20 00:44 97 09/04/20 00:34 97 09/04/20 00:22 92 09/03/20 23:39 70/41 L 92 09/03/20 22:27 09/03/20 21:52 95 09/03/20 20:45 98 09/03/20 20:16 09/03/20 20:15 09/03/20 20:01 09/03/20 20:00 09/03/20 19:57 94 09/03/20 19:55 09/03/20 18:32 93 09/03/20 18:30 93 09/03/20 18:22 93 09/03/20 18:15 09/03/20 18:06 09/03/20 17:47 09/03/20 17:45 93 09/03/20 17:30 94 09/03/20 17:15 92 09/03/20 17:02 93 09/03/20 17:01 91 09/03/20 17:00 91 09/03/20 16:59 92 09/03/20 16:56 94 09/03/20 16:52 93 09/03/20 16:30 09/03/20 16:22 93 09/03/20 16:13 94 09/03/20 16:00 93 09/03/20 15:47 98 09/03/20 15:39 97 09/03/20 15:37 97 Coding Level of Care Code Critical Care 1st 30-74 mins Diagnoses Septic shock A41.9; R65.21 Acute UTI (urinary tract infection) N39.0 Complicated UTI (urinary tract infection) N39.0 Acute renal failure N17.9 Acute hypotension I95.9 Recurrent falls R29.6 Weakness R53.1 GERD (gastroesophageal reflux disease) K21.9 Renal calculi N20.0 CKD (chronic kidney disease), stage III N18.3 Osteoarthritis M19.90 HTN (hypertension) I10 HLD (hyperlipidemia) E78.5 Asthma J45.909 Depression F32.9 S/P cholecystectomy Z90.49 History of hysterectomy Z90.710 History of colectomy Z90.49 Lethargy R53.83 Obesity hypoventilation syndrome E66.2 COPD (chronic obstructive pulmonary disease) J44.9 DM type 2 (diabetes mellitus, type 2) E11.9 Tachycardia R00.0 Fever R50.9 Fever type: unspecified Acute renal failure superimposed on stage 3 chronic kidney disease N17.0; N18.3 Acute renal failure type: with acute tubular necrosis Metabolic acidosis E87.2 Time Spent (min) 90 Comment Critical care time to this point exclusive of procedures (1) Fever Fever type: unspecified Qualified Code(s): R50.9 - Fever, unspecified (2) Acute renal failure superimposed on stage 3 chronic kidney disease Acute renal failure type: with acute tubular necrosis Qualified Code(s): N17.0 - Acute kidney failure with tubular necrosis; N18.3 - Chronic kidney disease, stage 3 (moderate)
--- NOTE | 2020-09-04 01:25 | Procedure Note ---
Procedure Note Date of Service September 04, 2020 Note ARTERIAL LINE PROCEDURE NOTE: Procedure: Arterial Line Placement Attending: Dr. Joe Cohn Provider: NICHOL Baldwin Indication: Monitoring on Pressors Anesthesia: Lidocaine 1% Line placed emergently in the setting of septic shock requiring vasopressor support. A time-out was completed verifying correct patient, procedure, site, positioning, and implant(s) or special equipment if applicable. Allens test was performed to ensure adequate perfusion. Patients left wrist was prepped and draped in the usual sterile fashion. Ultrasound guidance was used to aid needle placement. A 20g Arrow arterial line was introduced into the left radial artery. Catheter was threaded, and the needle was removed with appropriate blood return. Good waveform was observed. The patient tolerated the procedure well. Confirmation of placement with ultrasound. Blood Loss: Minimal Complications: None Procedural Ultrasound Guidance: Procedure Date: 09/04/2020 Indication: Arterial line insertion Attending: Dr. Joe Cohn Provider: NICHOL Baldwin Artery Identified: YES Line confirmed in Artery with ultrasound: Yes Complications: NONE Patient tolerated procedure: WELL Coding CPT Codes Tubes, Drains, and Vasc Access - Tubes, Drains, and Vasc Access: [id number] Insertion Catheter, Artery ([id number]) Tubes, Drains, and Vasc Access - Tubes, Drains, and Vasc Access: [id number] Ultra sound Guidance For Vascular ([id number]) [facility] [place], [place] Procedure Codes (Charges) Tubes, Drains, and Vasc Access Procedure 1: Tubes, Drains, and Vasc Access: [id number] Insertion Catheter, Artery Procedure 2: Tubes, Drains, and Vasc Access: [id number] Ultrasound Guidance For Vascular
[2020-09-04] MEDS ORDERED: SODIUM BICARB 8.4% INJ 50 MEQ/50 ML SYR IV STA ×2 (01:35→05:08)
[2020-09-04] MEDS ORDERED: SODIUM BICARB 8.4% INJ 50 MEQ/50 ML SYR IV ONE ×3 (01:35→05:07)
[2020-09-04] MEDS ORDERED: SODIUM POLYSTYRENE SULFONATE 15G/60ML SUSP PO STA (01:39)
[2020-09-04 01:43] LABS: iSTAT Arterial Blood Gas HCO3 14 meg/L (19-24); iSTAT Arterial Blood Gas pCO2 44 mmHg (35-46); iSTAT Arterial Blood Gas pH 7.13 (7.35-7.45); iSTAT Arterial Blood Gas pO2 74 mmHg (80-95); iSTAT Carbon Dioxide 16 mmol/L (24-31); iSTAT Site Art Line
[2020-09-04] MEDS: SODIUM BICARBONATE 8.4% 150 MEQ in DEXTROSE 5% 1,000 ML IV SCH ×5 (02:03→22:33)
[2020-09-04] MEDS ORDERED: Nursing to Pharmacy Communication SCH ×3 (02:45→15:45)
[2020-09-04] MEDS ORDERED: ALBUT/IPRATROP 3MG/0.5MG NEB 3 ML VIAL NEB PRN (03:27)
[2020-09-04 04:14] LABS: Hematocrit (blood only) 30.6 % (37-47); Hemoglobin 9.2 g/dL (12.0-16.0); Mean Corpuscular Hemoglobin 29.9 pg (25-34); Mean Corpuscular Hgb Conc 30.1 g/dL (32-36); Mean Corpuscular Volume 99.4 fL (80-100); Mean Platelet Volume 11.3 fL (7.4-10.4); Platelet Count 245 K/uL (130-400); RDW Coefficient of Variation 14.5 % (11.5-14.5); RDW Standard Deviation 51.6 fL (36.4-46.3); Red Blood Count 3.08 M/uL (4.2-5.4); White Blood Count 7.01 K/uL (4.8-10.8)
[2020-09-04 04:43] LABS: BUN Creatinine Ratio 10.8 (10-20); Calcium 6.7 mg/dl (8.5-10.1); Creatinine Clr Calc Pharmacy 11.4 ml/min; Est GFR (African American) 9.8; Est GFR (Non-African American) 8.4; Phosphorus 5.4 mg/dl (2.5-4.9)
[2020-09-04] MEDS ORDERED: HYDROCORTISONE SOD 50 MG in SYRINGE 0 ML IV STA (04:46)
[2020-09-04 05:15] LABS: iSTAT Arterial Blood Gas HCO3 18 meg/L (19-24); iSTAT Arterial Blood Gas pCO2 54 mmHg (35-46); iSTAT Arterial Blood Gas pH 7.14 (7.35-7.45); iSTAT Arterial Blood Gas pO2 96 mmHg (80-95); iSTAT Carbon Dioxide 20 mmol/L (24-31); iSTAT Site Art Line
[2020-09-04] MEDS: INSULIN ASPART 100 UNITS/ML 3 ML PEN SC SCH ×4 (05:21→20:32)
[2020-09-04 05:32] LABS: Magnesium 2.2 mg/dl (1.8-2.4); Potassium 4.5 mmol/L (3.5-5.1)
[2020-09-04 06:50] LABS: Estimated Average Glucose 126 mg/dl
--- NOTE | 2020-09-04 08:00 | XRay Report ---
XR chest 1V portable CLINICAL HISTORY: Central venous catheter insertion COMPARISON STUDY: 09/03/2020 FINDINGS: The heart is borderline enlarged. There is radiographic evidence of mild pulmonary vascular congestion. There is no lobar consolidation. There is been interval insertion of right internal jugu lar central venous catheter. The tip projects near the atrial caval junction. There is no pneumothora x.[ IMPRESSION: 1. Interval insertion of a right internal jugular central venous catheter 2. The catheter appears positioned with its tip near the atriocaval junction 3. No evidence pneumothorax 4. Radiographic evidence of mild pulmonary vascular congestion/fluid overload ACT 112: Negative or not required by law. Electronically signed by: Hank Coronado M.D. 09/04/2020 7:59 AM
[2020-09-04] MEDS ORDERED: GABAPENTIN 300 MG CAP PO SCH (09:00)
--- NOTE | 2020-09-04 09:23 | Procedure Note ---
Procedure Note Date of Service September 04, 2020 CENTRAL LINE PROCEDURE NOTE: Procedure: Central Line Placement for hemodialysis Provider: Dylan Cohn MD Indication: Hemodialysis access Anesthesia: 5 mL lidocaine 1% Site: Left internal jugular The patient verbally agreed to the procedure but was somewhat confused. We attempted to reach her but no phone numbers were valid. The procedure was emergent as the patient requires urgent hemodialysis A time-out was completed verifying correct patient, procedure, site, po sitioning, and implants(s) or special equipment if applicable. Patients left neck was cleansed and draped in the typical sterile fashion using Chloraprep. The Internal Jugular Vein and Carotid Artery were identified using ultrasound. The superficial tissue was anesthetized using 5 mL of 1% lidocaine without epinephrine under direct visualization with the ultrasound. After adequate anesthetization was achieved, the Internal Jugular vein was cannulated under direct ultrasound guidance using an introducer needle on a syringe. Good venous blood return was maintained prior to removal of syringe from introducer needle. Using Seldinger Technique, a guide wire was advanced through the introducer needle without resistance. The introducer needle was removed and ultrasound images were obtained of the guide wire within the Internal Jugular Vein. Images were not saved to due to technical issues. A small incision was made in penetrating fashion at the guide wire insertion site utilizing an 11 blade scalpel. The tract was serially dilated and dilators were advanced to the vessel without resistance. The dilator was exchanged for the previously flushed 20 cm HD line which was advanced into the vessel without resistance. The guide wire was removed intact from the catheter without issue. Claves were placed on each port with confirmation of good blood flow from each lumen. Each port was easily flushed with sterile saline. The catheter was placed at 20 cm and sut[address] in place. BioPatch was applied to the catheter and a sterile Tegaderm dressing was applied over the catheter with careful attention to sterility. Patient tolerated procedure well. No immediate complications were met. Post procedure x-ray currently pending Coding CPT Codes Tubes, Drains, and Vasc Access - Tubes, Drains, and Vasc Access: [id number] Place catheter in vein superior or inferior vena cava ([id number]) Tubes, Drains, and Vasc Access - Tubes, Drains, and Vasc Access: [id number] Ultrasound Guidance For Vascular ([id number]) [facility] [place] Procedure Codes (Charges) Tubes, Drains, and Vasc Access Procedure 1: Tubes, Drains, and Vasc Access: [id number] Place catheter in vein superior or inferior vena cava Procedure 2: Tubes, Drains, and Vasc Access: [id number] Ultrasound Guidance For Vascular
[2020-09-04] MEDS ORDERED: SODIUM CHLORIDE 0.9% 1000ML 1,000 ML IV PRN (09:43)
[2020-09-04] MEDS ORDERED: CALCIUM CHLORIDE 10% 1,000 MG in SODIUM CHLORIDE 0.9% 50 ML IV ONE (09:45)
--- NOTE | 2020-09-04 09:45 | XRay Report ---
XR chest 1V portable HISTORY: 64 years-old Female s/p HD catheter placement status post placement of a hemodialysis bobby ter COMPARISON: Chest radiograph of same day at 12:49 AM TECHNIQUE: Semiupright AP view of the chest FINDINGS: Cardiomediastinal and hilar silhouettes are within normal limits. Right IJ central venous catheter is unchanged in positioning. Status post placement of a left IJ dual-lumen hemodialysis catheter, dista l tip terminating in the expected location of the superior cavoatrial junction. No postprocedural pne umothorax. No pleural effusion, airspace consolidation. Decreased pulmonary vascular congestion. IMPRESSION: 1. Status post placement of a left IJ hemodialysis catheter, distal tip terminating near the inferior aspect of the SVC/superior cavoatrial junction. 2. No postprocedural pneumothorax. 3. Decreased pulmonary vascular congestion. ACT 112: Negative or not required by law. The above report was generated using voice recognition software. It may contain grammatical, syntax o r spelling errors. Electronically signed by: Mack Calderon M.D. 09/04/2020 9:44 AM
[2020-09-04] MEDS: HYDROCORTISONE SOD 50 MG in SYRINGE 0 ML IV SCH ×3 (10:00→20:31)
[2020-09-04] MEDS: SACCHAROMYCES BOULARDII 250 MG CAP PO SCH ×2 (10:28→20:31)
[2020-09-04] MEDS: LIDOCAINE 5% 1 PATCH TD SCH (10:28)
[2020-09-04] MEDS: PANTOprazole 40 MG TAB PO SCH ×2 (10:28→20:30)
[2020-09-04] MEDS: FERROUS SULFATE 325 MG TAB PO SCH ×2 (10:28→20:31)
[2020-09-04] MEDS: CHOLECALCIFEROL 1,000 UNITS 25 MCG TAB PO SCH (10:29)
[2020-09-04] MEDS: OXcarbazepine 150 MG TABLET PO SCH ×2 (10:29→20:30)
[2020-09-04] MEDS: FLUDROCORTISONE ACETATE 0.1 MG TAB PO SCH (10:29)
[2020-09-04 10:31] LABS: Hepatitis B Surface Antigen Neg (Neg)
[2020-09-04 10:42] LABS: Hepatitis B Surface Ab Quant < 3.10 mIU/mL (>or=10mIU/mL Immune); Hepatitis B Surface Antibody Non-Immune
--- NOTE | 2020-09-04 10:44 | Nephrology Consultation ---
Date of Consultation September 04, 2020 Assessment & Plan (1) Acute renal failure: Patient with PERRI on CKD. Baseline creatinine of 1.5 and admission creatinine of 6.2. Creatinine today down to 4.9 after IV fluids. Etiology of acute renal failure likely due to ischemic ATN in setting of sepsis. Given profound acidosis, oliguria and shock, will start her on dialysis. I discussed dialysis procedure in detail with the patient. Side effects were discussed. Patient consented to dialysis but she was unable to sign the written consent due to tremors. I spoke with the as well who consented over the phone. We will dialyze her for 3 hours with no UF. (2) Metabolic acidosis: Patient with severe metabolic acidosis likely due to renal failure and sepsis. pH was 7.14. We will dialyze her today. Stop bicarb drip. (3) Septic shock: Patient is on Levophed and antibiotics renally dosed for GFR less than 15mL/min History of Present Illness Reason for Consultation: PERRI Requesting Physician: Dr. Modi Attending Physician: Annette Modi MD History of Present Illness This is 64-year-old female with past medical history type 2 diabetes, CKD 3 baseline creatinine 1.5 as recent as last week when she was hospitalized for fall, nephrolithiasis, renal cysts, class III obesity, ambulatory dysfunction, hypertension, chronic respiratory failure dependent on supplemental 02nc and colon cancer status post 2011 total colectomy who was admitted on 09/04/2020 with the fall. Patient was hospitalized multiple times with the weakness and fall. She has not been eating or drinking at home for fear of urinary incontinence. She denied NSAID use. In the ED creatinine was 6.2 she had severe metabolic acidosis with pH of 7.1. She denies any shortness of breath. No vomiting or diarrhea. She has been on bicarb drip overnight. Creatinine has reduced 4.9 but remains acidotic with pH of 7.14. Chest x-ray showed pulmonary edema. Urinalysis showed about 30 RBCs per high-power field. CT abdomen showed bilateral renal stones, bilateral renal cysts with the largest measuring 8.5 cm. I initially saw the patient in consultation in her room. I later returned to see the patient while on dialysis. She was seen and examined while on dialysis Allergies Allergy/AdvReac Type Severity Reaction Status Date / Time salicylates Allergy Severe SHORTNESS Verified 09/03/20 17:07 OF BREATH Iodinated Contrast Media Allergy Intermediate EYES Verified 09/03/20 17:07 SWELLING/Hives amoxicillin [From Augmentin] Allergy Mild Rash Verified 09/03/20 17:07 aspirin Allergy Mild FACIAL Verified 09/03/20 17:07 SWELLING clavulanic acid Allergy Mild Rash Verified 09/03/20 17:08 [From Augmentin] hydromorphone Allergy Mild RASH/ITCHIN Verified 09/03/20 17:08 G fentanyl Allergy itching/felt Verified 09/03/20 17:08 like throat closing meperidine AdvReac Intermediate ITCH Verified 09/03/20 17:08 morphine AdvReac Intermediate ITCH Verified 09/03/20 17:09 tramadol AdvReac Mild itch Verified 09/03/20 17:09 Home Medications Medication Instructions Recorded Confirmed Type atorvastatin [Lipitor] 40 mg PO QPM 07/12/18 09/03/20 History clopidogrel [Plavix] 75 mg PO QPM 07/12/18 09/03/20 History gabapentin 300 mg PO TID 07/12/18 09/03/20 History pantoprazole [Protonix] 40 mg PO BID 07/12/18 09/03/20 History riboflavin (vitamin B2) 400 mg PO QPM 07/12/18 09/03/20 History duloxetine 60 mg PO QAM 10/16/18 09/03/20 History cholecalciferol (vitamin D3) 2,000 unit PO QAM 05/16/19 09/03/20 History [Vitamin D3] oxcarbazepine [Trileptal] 300 mg PO BID 05/16/19 09/03/20 History albuterol sulfate 2 puff INHALATION Q4H PRN 07/21/19 09/03/20 History metoprolol succinate 75 mg PO BID 07/21/19 09/03/20 History magnesium oxide 400 mg PO HS 10/05/19 09/03/20 History doxepin 100 mg PO HS 11/30/19 09/03/20 History ferrous sulfate 325 mg PO BID 11/30/19 09/03/20 History glipizide [Glucotrol XL] 2.5 mg PO DAILY #30 tab 02/12/20 09/03/20 Rx Forteo 20 mcg SUBCUT Q14D 05/06/20 09/03/20 History Saccharomyces boulardii [Florastor] 250 mg PO BID 08/17/20 09/03/20 History lidocaine 1 patch TOPICAL DAILY 08/17/20 09/03/20 History lisinopril 2.5 mg PO DAILY 08/17/20 09/03/20 History ondansetron 4 mg PO Q8H PRN 08/17/20 09/03/20 History Patient History Medical History Anxiety Asthma CHF (congestive heart failure) Chronic back pain Chronic headaches Chronic renal insufficiency stage 3, following with [facility] nephrology ([place]) COPD (chronic obstructive pulmonary disease) Deep vein thrombosis LLE - COULD NOT RECALL DATE - REPORTS SHE WAS TREATED AT [facility] W/ BLOOD THINNERS Degenerative disc disease Depression Diabetes mellitus, type 2 GERD (gastroesophageal reflux disease) Gram negative septicemia History of colon cancer 2012 S/P BOWEL RESECTION. History of esophageal dilatation Hyperlipidemia Hypertension Kidney stones Morbid obesity with BMI of 40.0-44.9, adult Myocardial Infarction 03/2018--> [facility] -- CARDIAC CATH --> NO STENTS/ANGIOPLASTY PER PT REPORT -- POOR HISTORIAN? REPORTS SHE IS ON PLAVIX FOR HEART - DENIES STENTS - DENIES ARRHYTHMIA - FOLLOWS W/ DR. TORRES On anticoagulant therapy plavix daily On home oxygen therapy 2L N/C at all times - states MD stopped this, patient states she is no longer using Osteoarthritis Poor historian Pyelonephritis Recurrent falls Seizure pt states "i think i had them a long time ago". no other information. Sepsis Surgical History H/O hand surgery RIGHT History of appendectomy History of bilateral cataract extraction History of blepharoplasty History of bowel resection d/t colon cancer History of cardiac cath 03/2018 - [place] - DENIES STENTS/ANGIOPLASTY - [facility] - FOLLOWS W/ DR. TORRES History of colonoscopy History of cystoscopy History of esophagogastroduodenoscopy (EGD) History of kidney surgery at age 9 yrs "something was wrong and had to fix it" History of lithotripsy History of tooth extraction History of total abdominal hysterectomy and bilateral salpingo-oophorectomy Hx of cholecystectomy Family History Other Breast cancer Social History Smoking Status: Unknown if ever smoked Second Hand Exposure: No; Do You Dip or Chew Tobacco: No; Tobacco Cessation Education Requested by Patient: No Hx Alcohol Use: No Hx Substance Use: No Preferred Language: Turkish Communication Ability: Effective Well Logging Operator Mud Analysis Required: No Beliefs That Will Affect Care: None marital status: Current Living Situation: Alone Current Living Situation Comment: alone in [place] in [place] Other Information That Helps Us Care for You: No Feels Safe at Home: Yes Assistive Devices: Walker and Wheelchair Review of Systems Review of Systems: All systems reviewed & are unremarkable except as noted in HPI & below Physical Exam Physical Exam: General exam: Appears comfortable, no acute distress HEENT: Pupils are equal and reactive to light Neck: No JVD, neck is supple trachea is midline Respiratory system: Clear breath sounds bilaterally. Gastrointestinal: Abdomen is soft, non distended, non tender, bowel sounds are present CVS: Regular rate and rhythm. No murmurs, rubs or gallops Musculoskeletal: No joint or muscle tenderness Extremities: Non tender, no edema, peripheral pulses are present Neuro: Oriented x3, patient is very shaky, no focal neurological deficits Skin: No rashes Results & Data ([facility]) Vital Signs (Past 12 Hours) Vital Signs Temp Pulse Pulse Resp BP BP BP 09/04/20 08:19 86/42 L 09/04/20 08:00 76 09/04/20 06:00 76 15 09/04/20 05:48 75 14 107/67 09/04/20 05:45 75 16 09/04/20 05:30 75 17 09/04/20 05:15 70 16 09/04/20 05:00 71 14 09/04/20 04:48 72 17 113/62 09/04/20 04:45 69 16 09/04/20 04:37 64 14 79/50 L 09/04/20 04:30 66 15 09/04/20 04:15 68 14 09/04/20 04:00 67 16 09/04/20 03:48 69 18 110/65 09/04/20 03:34 75 17 130/73 09/04/20 03:24 87 16 115/67 09/04/20 03:14 78 15 99/56 L 09/04/20 03:04 76 15 94/63 L 09/04/20 02:54 82 16 125/67 09/04/20 02:44 76 15 92/62 L 09/04/20 02:36 36.4 C L 09/04/20 02:34 74 14 107/62 09/04/20 02:30 67 16 09/04/20 02:15 68 16 09/04/20 02:14 70 20 110/68 09/04/20 02:00 68 19 09/04/20 01:56 69 16 124/66 09/04/20 01:45 72 16 09/04/20 01:30 69 14 09/04/20 01:19 64 14 121/71 09/04/20 01:14 66 14 121/73 09/04/20 01:04 65 18 106/91 09/04/20 01:01 61 09/04/20 00:54 65 19 128/74 09/04/20 00:44 67 19 132/82 09/04/20 00:34 62 18 130/77 09/04/20 00:22 63 20 69/48 L 09/03/20 23:39 36.3 C L 63 18 71/33 L 70/41 L Pulse Ox 09/04/20 08:19 09/04/20 08:00 98 09/04/20 06:00 98 09/04/20 05:48 99 09/04/20 05:45 97 09/04/20 05:30 100 09/04/20 05:15 100 09/04/20 05:00 97 09/04/20 04:48 98 09/04/20 04:45 97 09/04/20 04:37 97 09/04/20 04:30 97 09/04/20 04:15 99 09/04/20 04:00 100 09/04/20 03:48 100 09/04/20 03:34 100 09/04/20 03:24 97 09/04/20 03:14 98 09/04/20 03:04 100 09/04/20 02:54 98 09/04/20 02:44 99 09/04/20 02:36 09/04/20 02:34 100 09/04/20 02:30 100 09/04/20 02:15 98 09/04/20 02:14 100 09/04/20 02:00 96 09/04/20 01:56 09/04/20 01:45 09/04/20 01:30 09/04/20 01:19 09/04/20 01:14 09/04/20 01:04 09/04/20 01:01 09/04/20 00:54 99 09/04/20 00:44 97 09/04/20 00:34 97 09/04/20 00:22 92 09/03/20 23:39 92 Laboratory Results 09/04/20 04:45 09/03/20 09/03/20 09/04/20 16:34 16:34 04:04 WBC 12.23 H 7.01 RBC 4.00 L 3.08 L MCV 98.5 99.4 MCH 30.0 29.9 MCHC 30.5 L 30.1 L RDW Std Deviation 51.3 H 51.6 H RDW Coeff of Teresa 14.3 14.5 Plt Count 297 245 MPV 10.9 H 11.3 H Phosphorus Albumin 3.6 09/04/20 04:04 WBC RBC MCV MCH MCHC RDW Std Deviation RDW Coeff of Teresa Plt Count MPV Phosphorus 5.4 H Albumin
--- NOTE | 2020-09-04 12:20 | Urology Consultation ---
Date of Consultation September 04, 2020 Assessment & Plan (1) Renal calculi: Assessment Presumed sepsis Left staghorn calculus On review of the CT scans it does not appear that the left kidney is currently obstructed from the stone So I do not think of stent would add anything to her overall care and may actually complicate things since if the urine is infected it would then reflux up the stent into the left kidney. Her urine output seems to be improving with hydration She is going to be dialyzed later today continue current therapy History of Present Illness Attending Physician: Annette Modi MD History of Present Illness Patient is a 64-year-old white female who was admitted with presumed sepsis We were asked to see the patient because of nephrolithiasis seen on a CT Currently the patient is awake and able to answer questions although she seems somewhat lethargic She is complaining of abdominal and back pain She apparently was also severely dehydrated. She started making some urine after several fluid boluses I reviewed her CT scan as well as every other CT scan she has had since 2019 He does have a left staghorn calculus There does not appear to be any ureteral obstruction Staghorn calculus appears to be away from the ureteropelvic junction The left kidney is atrophic and has been on all of the CAT scans I reviewed Renal pelvis on all of the CAT scans appears similar. Allergies Allergy/AdvReac Type Severity Reaction Status Date / Time salicylates Allergy Severe SHORTNESS Verified 09/03/20 17:07 OF BREATH Iodinated Contrast Media Allergy Intermediate EYES Verified 09/03/20 17:07 SWELLING/Hives amoxicillin [From Augmentin] Allergy Mild Rash Verified 09/03/20 17:07 aspirin Allergy Mild FACIAL Verified 09/03/20 17:07 SWELLING clavulanic acid Allergy Mild Rash Verified 09/03/20 17:08 [From Augmentin] hydromorphone Allergy Mild RASH/ITCHIN Verified 09/03/20 17:08 G fentanyl Allergy itching/felt Verified 09/03/20 17:08 like throat closing meperidine AdvReac Intermediate ITCH Verified 09/03/20 17:08 morphine AdvReac Intermediate ITCH Verified 09/03/20 17:09 tramadol AdvReac Mild itch Verified 09/03/20 17:09 Home Medications Medication Instructions Recorded Confirmed Type atorvastatin [Lipitor] 40 mg PO QPM 07/12/18 09/03/20 History clopidogrel [Plavix] 75 mg PO QPM 07/12/18 09/03/20 History gabapentin 300 mg PO TID 07/12/18 09/03/20 History pantoprazole [Protonix] 40 mg PO BID 07/12/18 09/03/20 History riboflavin (vitamin B2) 400 mg PO QPM 07/12/18 09/03/20 History duloxetine 60 mg PO QAM 10/16/18 09/03/20 History cholecalciferol (vitamin D3) 2,000 unit PO QAM 05/16/19 09/03/20 History [Vitamin D3] oxcarbazepine [Trileptal] 300 mg PO BID 05/16/19 09/03/20 History albuterol sulfate 2 puff INHALATION Q4H PRN 07/21/19 09/03/20 History metoprolol succinate 75 mg PO BID 07/21/19 09/03/20 History magnesium oxide 400 mg PO HS 10/05/19 09/03/20 History doxepin 100 mg PO HS 11/30/19 09/03/20 History ferrous sulfate 325 mg PO BID 11/30/19 09/03/20 History glipizide [Glucotrol XL] 2.5 mg PO DAILY #30 tab 02/12/20 09/03/20 Rx Forteo 20 mcg SUBCUT Q14D 05/06/20 09/03/20 History Saccharomyces boulardii [Florastor] 250 mg PO BID 08/17/20 09/03/20 History lidocaine 1 patch TOPICAL DAILY 08/17/20 09/03/20 History lisinopril 2.5 mg PO DAILY 08/17/20 09/03/20 History ondansetron 4 mg PO Q8H PRN 08/17/20 09/03/20 History Patient History Medical History Anxiety Asthma CHF (congestive heart failure) Chronic back pain Chronic headaches Chronic renal insufficiency stage 3, following with [facility] nephrology ([place]) COPD (chronic obstructive pulmonary disease) Deep vein thrombosis LLE - COULD NOT RECALL DATE - REPORTS SHE WAS TREATED AT [facility] W/ BLOOD THINNERS Degenerative disc disease Depression Diabetes mellitus, type 2 GERD (gastroesophageal reflux disease) Gram negative septicemia History of colon cancer 2013 S/P BOWEL RESECTION. History of esophageal dilatation Hyperlipidemia Hypertension Kidney stones Morbid obesity with BMI of 40.0-44.9, adult Myocardial Infarction 03/2018--> [facility] -- CARDIAC CATH --> NO STENTS/ANGIOPLASTY PER PT REPORT -- POOR HISTORIAN? REPORTS SHE IS ON PLAVIX FOR HEART - DENIES STENTS - DENIES ARRHYTHMIA - FOLLOWS W/ DR. TORRES On anticoagulant therapy plavix daily On home oxygen therapy 2L N/C at all times - states MD stopped this, patient states she is no longer using Osteoarthritis Poor historian Pyelonephritis Recurrent falls Seizure pt states "i think i had them a long time ago". no other information. Sepsis Surgical History H/O hand surgery RIGHT History of appendectomy History of bilateral cataract extraction History of blepharoplasty History of bowel resection d/t colon cancer History of cardiac cath 03/2018 - [place] - DENIES STENTS/ANGIOPLASTY - [facility] - FOLLOWS W/ DR. TORRES History of colonoscopy History of cystoscopy History of esophagogastroduodenoscopy (EGD) History of kidney surgery at age 9 yrs "something was wrong and had to fix it" History of lithotripsy History of tooth extraction History of total abdominal hysterectomy and bilateral salpingo-oophorectomy Hx of cholecystectomy Family History Other Breast cancer Social History Smoking Status: Unknown if ever smoked Second Hand Exposure: No; Do You Dip or Chew Tobacco: No; Tobacco Cessation Education Requested by Patient: No Hx Alcohol Use: No Hx Substance Use: No Preferred Language: Indonesian Communication Ability: Effective Electronics Supervisor Required: No Beliefs That Will Affect Care: None marital status: Current Living Situation: Alone Current Living Situation Comment: alone in [place] in [place] Other Information That Helps Us Care for You: No Feels Safe at Home: Yes Assistive Devices: Walker and Wheelchair Physical Exam Physical Exam: Patient is awake able to answer questions Temperature 37.0 pulse 71 respiratory rate 15 blood pressure 169/84 Neurologically she is alert and oriented Abdomen soft nontender Lungs-normal respiratory effort she does have a Purvis starting to make urine Results & Data ([facility]) Vital Signs (Past 12 Hours) Vital Signs Temp Pulse Pulse Resp BP BP Pulse Ox 09/04/20 12:00 71 169/84 H 09/04/20 11:34 68 121/76 09/04/20 11:19 68 121/64 09/04/20 11:05 66 110/61 09/04/20 10:50 68 81/46 L 09/04/20 10:36 67 94/48 L 09/04/20 10:19 37.0 C 75 09/04/20 08:19 86/42 L 09/04/20 08:00 76 98 09/04/20 06:00 76 15 98 09/04/20 05:48 75 14 107/67 99 09/04/20 05:45 75 16 97 09/04/20 05:30 75 17 100 09/04/20 05:15 70 16 100 09/04/20 05:00 71 14 97 09/04/20 04:48 72 17 113/62 98 09/04/20 04:45 69 16 97 09/04/20 04:37 64 14 79/50 L 97 09/04/20 04:30 66 15 97 09/04/20 04:15 68 14 99 09/04/20 04:00 67 16 100 09/04/20 03:48 69 18 110/65 100 09/04/20 03:34 75 17 130/73 100 09/04/20 03:24 87 16 115/67 97 09/04/20 03:14 78 15 99/56 L 98 09/04/20 03:04 76 15 94/63 L 100 09/04/20 02:54 82 16 125/67 98 09/04/20 02:44 76 15 92/62 L 99 09/04/20 02:36 36.4 C L 09/04/20 02:34 74 14 107/62 100 09/04/20 02:30 67 16 100 09/04/20 02:15 68 16 98 09/04/20 02:14 70 20 110/68 100 09/04/20 02:00 68 19 96 09/04/20 01:56 69 16 124/66 09/04/20 01:45 72 16 09/04/20 01:30 69 14 09/04/20 01:19 64 14 121/71 09/04/20 01:14 66 14 121/73 09/04/20 01:04 65 18 106/91 09/04/20 01:01 61 11/26/20 00:54 65 19 128/74 99 09/04/20 00:44 67 19 132/82 97 09/04/20 00:34 62 18 130/77 97 09/04/20 00:22 63 20 69/48 L 92 PG Care Time/CCT Total # of Minutes Spent Total Time Spent with Patient: Total time spent is greater than 50% in coordin ation of care (as documented) at patient's floor/unit and/or counseling patient: Coding Level of Care Code 84239 Inpt Consult Level 3 Diagnoses Renal calculi N20.0
--- NOTE | 2020-09-04 15:55 | Hospitalist Progress Note ---
Date of Service September 04, 2020 Assessment & Plan (1) Acute hypotension: This is a 64yo F with a PMH of DM II, dyslipidemia, CALI, asthma/COPD, bronchiectasis, HTN, CKD III who presents to the ED with worsening weakness and recurrent falls and was found to have acute hypotension and acute renal failure as well as complicated UTI. -Likely secondary to prolonged diarrhea and may be complicated by UTI with sepsis - In setting of acute renal failure and significant dehydration from very little PO fluid intake at home. - Patient is A&Ox4. Continue IV fluids with transition to bicarb drip. Holding lisinopril and Toprol -Was transferred to ICU as she required intravenous pressor to maintain blood pressure -Appreciate antique jewelry repairer input and recommendation -Blood pressure seems to be improving Chronic diarrhea She has been complaining of loose stools 4 or 5 times daily for the last few weeks We will send stool for C. difficile and also culture (2) Acute renal failure: Creatinine significantly elevated at 6.25 (1.48 during admission last week) with hyperkalemia of 5.7. Bicarb 19 -Significant dehydration secondary to prolonged diarrhea with significant metabolic acidosis -Doubt any obstructive uropathy -Received 2 L bolus in ED, transitioning to bicarb drip -Given calcium gluconate for hyperkalemia. Giving 1/2 ampule of D50 prior to administration of IV insulin due to hypoglycemia -Appreciate nephrology input and recommendation -We will have hemodialysis today (3) Recurrent falls: (4) Weakness: Has had multiple falls of the same nature over the past few months and was admitted with similar symptoms last month -Poor PO intake at home, renal failure, deconditioning -IV fluid resuscitation, fall precautions, PT/OT evaluation, discharge planning (5) Complicated UTI (urinary tract infection): -Possible sepsis secondary to UTI -Abnormal UA with urine, blood cultures pending. Continue empiric Rocephin and IV fluids -CT abd/pelvis with bilateral nephrolithiasis. Persistent small staghorn calculus within a mildly dilated left renal pelvis -Discussed findings with urology, who do not feel procedure is indicated since no strone is obstructing -Doubt any obstructive uropathy -Appreciate urology input and recommendation -Started on intravenous Rocephin and then changed to IV cefepime and daptomycin -Daptomycin has been discontinued by the antique jewelry repairer -Await urine and blood cultures report (6) Depression: Appears depressed on exam with flattened affect, poor appetite. Continue duloxetine (7) DM type 2 (diabetes mellitus, type 2): -Hold home agents -SSI while in-patient -BSG AC HS -Glycemic pharmacist consulted (8) Obesity hypoventilation syndrome: Also has CALI -CPAP intolerant. Monitor for hypoxia DVT Ppx: SQ heparin Code status: FULL PCP: Mannie Dispo: Admit to PCU. Discharge planning ordered. Patient seen in collaboration with Dr. Turner. Please see addendum. Admission and Anticipated Discharge Date Admission Date: September 03, 2020 Subjective 09/04/2020 The patient was seen and examined in ICU He was transferred to ICU from PCU due to continued hypotension and requiring intravenous pressors and She remains generally very weak and lethargic and has been checking with severe anxiety Denies any shortness of breath, chest pain or palpitation No abdominal pain, nausea and or vomiting Review of Systems Review of Systems: All systems reviewed and are unremarkable except as noted below Constitutional: + chills, + fatigue and + weakness Neurologic: + generalized weakness Physical Exam Physical Exam: Lying in bed with some distress due to anxiety and ongoing shaking Constitutional: well developed, well nourished, + ill appearing and + obese Eyes: PERRL, conjunctivae normal, anicteric sclerae ENMT: external ear and nose normal, oropharynx normal Neck: trachea midline, no thyromegaly Respiratory: + respiratory distress (Minimal at rest) Auscultation: lungs clear to auscultation bilaterally and + diminished lung sounds Cardiovascular: Rate/Rhythm: regular rate and regular rhythm Heart Sounds: no murmur Extremities: + edema (Trace edema bilaterally) Gastrointestinal (Abdomen): Inspection/Auscultation: abdomen not distended Percussion/Palpation: abdomen soft; abdomen nontender Musculoskeletal: No acute arthritis in any joint Neurologic: Alert, awake and oriented x3. Generally weak and lethargic Lymphatic: no cervical or axillary lymphadenopathy Results & Data Results & Data ([facility]) Vital Signs (Past 12 Hours) Vital Signs Temp Pulse Pulse Resp BP BP BP 09/04/20 15:24 63 09/04/20 13:50 37.1 C 82 113/69 09/04/20 13:20 75 99/56 L 09/04/20 13:05 73 90/63 L 09/04/20 12:50 69 96/51 L 96/51 L 09/04/20 12:36 69 134/73 09/04/20 12:21 72 151/64 H 09/04/20 12:05 81 169/84 H 09/04/20 12:00 71 169/84 H 09/04/20 11:49 69 130/87 09/04/20 11:34 68 121/76 09/04/20 11:19 68 121/64 09/04/20 11:05 66 110/61 09/04/20 10:50 68 81/46 L 09/04/20 10:36 67 94/48 L 09/04/20 10:19 37.0 C 75 09/04/20 08:19 86/42 L 09/04/20 08:00 75 09/04/20 06:00 76 15 09/04/20 05:48 75 14 107/67 09/04/20 05:45 75 16 09/04/20 05:30 75 17 09/04/20 05:15 70 16 09/04/20 05:00 71 14 09/04/20 04:48 72 17 113/62 09/04/20 04:45 69 16 09/04/20 04:37 64 14 79/50 L 09/04/20 04:30 66 15 09/04/20 04:15 68 14 09/04/20 04:00 67 16 09/04/20 03:48 69 18 110/65 Pulse Ox 09/04/20 15:24 09/04/20 13:50 09/04/20 13:20 09/04/20 13:05 09/04/20 12:50 09/04/20 12:36 09/04/20 12:21 09/04/20 12:05 09/04/20 12:00 09/04/20 11:49 09/04/20 11:34 09/04/20 11:19 09/04/20 11:05 09/04/20 10:50 09/04/20 10:36 09/04/20 10:19 09/04/20 08:19 09/04/20 08:00 98 09/04/20 06:00 98 09/04/20 05:48 99 09/04/20 05:45 97 09/04/20 05:30 100 09/04/20 05:15 100 09/04/20 05:00 97 09/04/20 04:48 98 09/04/20 04:45 97 09/04/20 04:37 97 09/04/20 04:30 97 09/04/20 04:15 99 09/04/20 04:00 100 09/04/20 03:48 100 Laboratory Results Short CBC 09/03/20 09/04/20 Range/Units 16:34 04:04 WBC 12.23 H 7.01 (4.8-10.8) K/uL Hgb 12.0 9.2 L (12.0-16.0) g/dL Hct 39.4 30.6 L (37-47) % Plt Count 297 245 (130-400) K/uL BMP 09/03/20 09/03/20 09/04/20 16:34 21:50 04:04 Sodium 137 139 142 Potassium 5.7 H 5.5 H Chloride 113 H 116 H 119 H Carbon Dioxide 19 L 15 L 16 L BUN 63 H 60 H 54 H Creatinine 6.25 H* 5.98 H* 4.98 H* D Glucose 80 150 H 199 H Calcium 9.0 8.6 6.7 L D 09/04/20 04:45 Sodium Potassium 4.5 D Chloride Carbon Dioxide BUN Creatinine Glucose Calcium Cardiac Enzymes 09/03/20 Range/Units 16:34 Troponin I < 0.015 (0-0.045) ng/ml Liver Function 09/03/20 Range/Units 16:34 Total Bilirubin 0.2 (0.2-1) mg/dl AST 14 L (15-37) U/L ALT 25 (12-78) U/L Alkaline Phosphatase 168 H (45-117) U/L Albumin 3.6 (3.4-5.0) gm/dl Urine 09/03/20 Range/Units 18:35 Urine Color Yellow Urine Appearance Cloudy A (Clear) Urine pH 5.5 (4.5-7.5) Ur Specific [place] 1.025 (1.000-1.030) Urine Protein 3+ H (Negative) Urine Glucose (UA) Negative (Negative) Medications Administered Current Inpatient Medications Acetaminophen (Acetaminophen 325 Mg Tab) 650 mg PO Q4H PRN PRN Reason: Pain or Fever Stop: 10/03/20 20:44 Albuterol (Albuterol Hfa 8 Gm Inhaler) 2 puffs INH Q4H PRN PRN Reason: Shortness Of Breath Stop: 10/03/20 20:31 Albuterol (Albut/Ipratrop 3mg/0.5mg Neb 3 Ml Vial) 3 ml NEB Q4R PRN PRN Reason: Shortness Of Breath Or Wheezing Stop: 10/04/20 03:26 Clopidogrel Bisulfate (Clopidogrel Bisulfate 75 Mg Tab) 75 mg PO QPM MARLA Stop: 10/03/20 20:59 Last Admin: 09/03/20 21:37 Dose: 75 mg Documented by: Dextrose (Dextrose 50% 50 Ml Syringe) 25 - 50 ml IV UD PRN; Protocol PRN Reason: Hypoglycemia Protocol Stop: 10/03/20 20:44 Doxepin HCl (Doxepin Hcl 50 Mg Capsule) 100 mg PO HS [facility] Stop: 10/04/20 20:59 Duloxetine HCl (Duloxetine Hcl 60 Mg Cap) 60 mg PO QAM MARLA Stop: 10/04/20 08:59 Ferrous Sulfate (Ferrous Sulfate 325 Mg Tab) 325 mg PO BID [facility] Stop: 10/04/20 08:59 Last Admin: 09/04/20 10:28 Dose: Not Given Documented by: Fludrocortisone Acetate (Fludrocortisone Acetate 0.1 Mg Tab) 0.1 mg PO QAM [facility] Stop: 10/04/20 09:29 Last Admin: 09/04/20 10:29 Dose: Not Given Documented by: Glucagon (Glucagon For Inj 1 Mg Vial) 1 mg SQ UD PRN; Protocol PRN Reason: Hypoglycemia Protocol Stop: 10/03/20 20:44 Glucose (Glucose 10 Tabs/Tube) 4 - 8 tabs PO UD PRN; Protocol PRN Reason: Hypoglycemia Protocol Stop: 10/03/20 20:44 Glucose (Glucose 40% Gel 15 Gm Tube) 15 - 30 gm PO UD PRN; Protocol PRN Reason: Hypoglycemia Protocol Stop: 10/03/20 20:44 Norepinephrine Bitartrate (Levophed/D5w) 8 mg in 508 mls @ 18.669 mls/hr IV .Q24H MARLA; Protocol Stop: 10/03/20 23:44 Last Titration: 09/04/20 12:50 Dose: 0.02 mcg/kg/min, 7.5 mls/hr Documented by: Cefepime HCl 1,000 mg/ Syringe 11.3 mls @ 5.5 mls/min IV Q24H [facility] Stop: 09/13/20 01:03 Sodium Bicarbonate 150 meq/ (Dextrose) 1,150 mls @ 200 mls/hr IV .Q5H45M MARLA Stop: 10/04/20 01:32 Last Admin: 09/04/20 10:57 Dose: 200 mls/hr Documented by: Hydrocortisone Sodium (Succinate 50 mg/ Syringe) 1 mls @ 4 mls/min IV Q6H MARLA Stop: 10/04/20 08:59 Last Admin: 09/04/20 10:00 Dose: 4 mls/min Documented by: Insulin Aspart (Insulin Aspart 100 Units/Ml 3 Ml Pen) 0 units SC ACHS MARLA Stop: 10/04/20 16:29 Lidocaine (Lidocaine 5% 1 Patch) 1 patch TD DAILY MARLA Stop: 10/04/20 08:59 Last Admin: 09/04/20 10:28 Dose: Not Given Documented by: Magnesium Oxide (Magnesium Oxide 400 Mg Tab) 400 mg PO HS MARLA Stop: 10/03/20 20:59 Last Admin: 09/03/20 21:37 Dose: 400 mg Documented by: Miscellaneous (Remove Lidoderm Patch) 1 ea N/A DAILY@2100 [facility] Stop: 10/03/20 20:59 Last Admin: 09/03/20 21:38 Dose: Not Given Documented by: Miscellaneous (Carbohydrates For Hypoglycemia ) 15 - 30 gm PO UD PRN PRN Reason: Hypoglycemia Protocol Stop: 10/03/20 20:44 Miscellaneous Information (*Renal Dosing Consult (For Home Meds)*) 1 ea N/A UD PRN PRN Reason: Consult Stop: 10/03/20 21:11 Miscellaneous Information (Cefepime Consult Active) 1 ea N/A UD PRN PRN Reason: Consult Stop: 10/04/20 00:17 Oxcarbazepine (Oxcarbazepine 150 Mg Tablet) 150 mg PO BID [facility]; Protocol Stop: 10/03/20 21:59 Last Admin: 09/04/20 10:29 Dose: Not Given Documented by: Pantoprazole Sodium (Pantoprazole 40 Mg Tab) 40 mg PO BID [facility] Stop: 10/03/20 20:59 Last Admin: 09/04/20 10:28 Dose: Not Given Documented by: Saccharomyces Boulardii (Saccharomyces Boulardii 250 Mg Cap) 250 mg PO BID MARLA Stop: 10/03/20 20:59 Last Admin: 09/04/20 10:28 Dose: Not Given Documented by: Vitamin D (Cholecalciferol 1,000 Units 25 Mcg Tab) 2,000 units PO QAM [facility] Stop: 10/04/20 08:59 Last Admin: 09/04/20 10:29 Dose: Not Given Documented by:
[2020-09-04] MEDS ORDERED: cefTRIAXone SODIUM 2,000 MG in DEXTROSE 5% 50 ML IV SCH (18:00)
[2020-09-04] MEDS: DOXEPIN HCL 50 MG CAPSULE PO SCH (20:30)
[2020-09-04] MEDS: MAGNESIUM OXIDE 400 MG TAB PO SCH (20:30)
[2020-09-04] MEDS: CLOPIDOGREL BISULFATE 75 MG TAB PO SCH (20:31)
[2020-09-04] MEDS ORDERED: ATORVASTATIN 40 MG TAB PO SCH (21:00)
[2020-09-04] MEDS: ONDANSETRON INJ 2 MG/ML 2 ML VIAL IV PRN (23:33)
[2020-09-05] MEDS ORDERED: CEFEPIME 1,000 MG in SYRINGE 0 ML IV SCH (01:00)
[2020-09-05] MEDS: FERROUS SULFATE 325 MG TAB PO SCH ×3 (01:40→23:46)
[2020-09-05] MEDS: SACCHAROMYCES BOULARDII 250 MG CAP PO SCH ×3 (01:40→23:47)
[2020-09-05] MEDS: DOXEPIN HCL 50 MG CAPSULE PO SCH ×2 (01:43→23:47)
[2020-09-05] MEDS: OXcarbazepine 150 MG TABLET PO SCH ×3 (01:43→23:48)
[2020-09-05] MEDS: PANTOprazole 40 MG TAB PO SCH (01:44)
[2020-09-05] MEDS: CLOPIDOGREL BISULFATE 75 MG TAB PO SCH ×2 (01:44→23:47)
[2020-09-05] MEDS: NOREPINEPHRINE/D5W 8 MG/508 ML BAG IV SCH (01:44)
[2020-09-05] MEDS: MAGNESIUM OXIDE 400 MG TAB PO SCH ×2 (01:44→23:47)
[2020-09-05] MEDS: HYDROCORTISONE SOD 50 MG in SYRINGE 0 ML IV SCH ×4 (02:06→21:33)
--- NOTE | 2020-09-05 04:39 | Urology Progress Note ---
Date of Service September 05, 2020 Assessment & Plan (1) Acute renal failure: Assessment Sepsis Patient seems to be slowly improving Continue current treatment plan No need for ureteral stent at this time Admission and Anticipated Discharge Date Admission Date: September 03, 2020 Subjective Patient is currently resting in bed In no acute distress Vital signs Temp 37.4/pulse 65/respiratory rate 12/BP 86/54 Urine output for the last 24 hours is picked up to 1300 cc Did have hemodialysis yesterday Nurse taking care of the patient said she tried to discontinue her vasopressors but should her blood pressure dropped so she had to restart them Urine culture reported as no growth Blood cultures reported as no growth Other lab work is pending Results & Data ([facility]) Vital Signs (Past 12 Hours) Vital Signs Temp Pulse Resp BP Pulse Ox 09/05/20 04:09 37.4 C 09/05/20 03:59 65 12 86/54 L 93 09/05/20 03:35 63 17 137/81 93 09/05/20 03:30 64 17 95 09/05/20 03:15 68 16 94 09/05/20 03:00 62 17 94 09/05/20 02:51 64 09/05/20 02:45 66 19 95 09/05/20 02:37 67 19 148/78 H 94 09/05/20 02:30 65 23 95 09/05/20 02:15 59 L 22 98 09/05/20 02:00 60 20 96 09/05/20 01:45 68 17 96 09/05/20 01:35 67 14 108/62 97 09/05/20 01:30 66 17 95 09/05/20 01:15 70 23 94 09/05/20 01:00 68 16 95 09/05/20 00:52 72 20 94 09/05/20 00:51 70 15 108/71 96 09/05/20 00:45 64 17 94 09/05/20 00:35 65 12 108/71 95 09/05/20 00:30 66 18 95 09/05/20 00:15 65 23 94 09/05/20 00:00 37.4 C 67 17 96 09/04/20 23:45 64 16 94 09/04/20 23:35 66 21 146/93 H 93 09/04/20 23:30 61 15 97 09/04/20 23:15 67 17 96 09/04/20 23:00 61 16 98 09/04/20 22:45 65 20 97 09/04/20 22:30 62 20 96 09/04/20 22:15 90 33 H 89 L 09/04/20 22:00 61 17 98 09/04/20 21:45 62 18 98 09/04/20 21:36 69 15 148/81 H 98 09/04/20 21:30 66 19 98 09/04/20 21:15 70 20 98 09/04/20 20:45 74 18 97 09/04/20 20:35 88 16 122/76 96 09/04/20 20:30 68 16 95 09/04/20 20:15 67 21 96 09/04/20 20:00 37.2 C 68 16 96 09/04/20 19:35 67 19 121/86 96 09/04/20 19:30 76 17 95 09/04/20 19:15 70 21 91 09/04/20 19:00 73 19 93 09/04/20 18:00 71 19 93 09/04/20 16:36 81 21 109/59 L 91 PG Care Time/CCT Total # of Minutes Spent Total Time Spent with Patient: Total time spent is greater than 50% in coordination of care (as documented) at patient's floor/unit and/or counseling patient: Coding Level of Care Code 65058 Subseq Hosp Care Lvl 1 Diagnoses Acute renal failure N17.9
[2020-09-05] MEDS: SODIUM BICARBONATE 8.4% 150 MEQ in DEXTROSE 5% 1,000 ML IV SCH (05:09)
[2020-09-05 05:20] LABS: Hematocrit (blood only) 31.5 % (37-47); Hemoglobin 9.8 g/dL (12.0-16.0); Mean Corpuscular Hemoglobin 29.5 pg (25-34); Mean Corpuscular Hgb Conc 31.1 g/dL (32-36); Mean Corpuscular Volume 94.9 fL (80-100); Mean Platelet Volume 10.6 fL (7.4-10.4); Platelet Count 204 K/uL (130-400); RDW Coefficient of Variation 13.6 % (11.5-14.5); RDW Standard Deviation 47.2 fL (36.4-46.3); Red Blood Count 3.32 M/uL (4.2-5.4); White Blood Count 7.69 K/uL (4.8-10.8)
[2020-09-05 05:51] LABS: Albumin Globulin Ratio 0.7 (0.9-2); Albumin Level 2.6 gm/dl (3.4-5.0); BUN Creatinine Ratio 6.5 (10-20); Bilirubin,Total 0.2 mg/dl (0.2-1); Calcium 7.1 mg/dl (8.5-10.1); Creatinine Clr Calc Pharmacy 26.6 ml/min; Est GFR (African American) 26.5; Est GFR (Non-African American) 22.9; Globulin 3.6 gm/dl (2.5-4.0); Magnesium 1.6 mg/dl (1.8-2.4); Phosphorus 2.8 mg/dl (2.5-4.9); Potassium 2.6 mmol/L (3.5-5.1); Total Protein 6.2 gm/dl (6.4-8.2)
[2020-09-05] MEDS: ONDANSETRON INJ 2 MG/ML 2 ML VIAL IV PRN ×2 (06:20→21:48)
[2020-09-05] MEDS: INSULIN ASPART 100 UNITS/ML 3 ML PEN SC SCH ×4 (07:29→23:16)
[2020-09-05] MEDS ORDERED: SODIUM CHLORIDE 0.9% 1000ML 1,000 ML IV PRN (08:29)
[2020-09-05] MEDS ORDERED: HEPARIN SOD (PORCINE) 1000 UNIT/ML 10 ML VIAL IV ONE (08:29)
--- NOTE | 2020-09-05 09:16 | Critical Care Progress Note ---
Date of Service September 05, 2020 Assessment & Plan (1) Metabolic acidosis: Reason Critically Ill: 64-year-old female here with a PMHx significant for Dm2, HLD, CALI, Asthma s/p colectomy for colon cancer removal, with ileosigmoid anastomosis who presented with weakness and fatigue and who was admitted for hypotension, Acute renal failure. Neuro - CAM ICU: NEGATIVE Sedation: none Analgesia: tylenol Metabolic Encephalopathy - resolved - secondary to acid/base imbalance and electrolyte abnormalities - resolved with Dialysis Cardiac - Hx CHF - Echo 09/04/20 showing EF 65-70%, no diastolic dysfunction, no ventricular or valvular abnormalities. Pt does not appear to have CHF. Hypotension - was on levophed overnight, currently discontinued - fluorinef AM and hydrocortisone 50 mg Q6 2/2 relative adrenal insufficiency CAD - continue home plavix Respiratory - - Respiratory Acidosis with nongap metabolic acidosis - secondary to obesity hypoventilation syndrome - ABG today to trend pH - on 2L NC at rest, pt states she only uses it when up and moving around at home. no complaints of SOB - Duonebs PRN GI - - Clear liquid diet - zofran 4mg IV Q6H PRN for nausea - pantoprazole BID IV for vomiting/stomach irritation RENAL/LYTES - - Non-Anion gap metabolic acidosis secondary to chronic diarrhea superimposed on Acute Renal Failure secondary to hypotension from colonic fluid losses and medications. - nephrology following, dialysis yesterday and today showing improvement in Cr - UOP via hernandez, I/O for stay +4L - hold lisinopril, metoprolol - renal dosing of all medications - Nephrolithiasis - identified on CT A/P, chronic staghorn calculus without hydronephrosis - urology recommendation: no need for stenting, will treat as UTI given dirty UA and elevated WBC on arrival - procal negative, no fevers, no lactate - de-escalate cefepime to rocephin with hx pansensitive E. Coli - - See renal - hernandez in place to monitor I/O while patient unable to get out of bed ENDO - - DM2 - on glipizide at home, holding - check sugars ACHS, SSI HEME - - Anemia 2/2 CKD - Stable H&H. ID - - UTI - started on cefepime in ED, transitioned to Rocephin today with hx pansensitive E. Coli, improving WBC, no growth on Ucx and negative Bcx INTEGUMENTARY - - No issues LINES/IV ACCESS - L IJ CVC, PIVs, art line intact DVT PROPHYLAXIS - - heparin SQ BID Thank you for allowing us to be part of this patient's care. Please refer to Dr. Cohn's documentation for any further recommendations. (2) Acute UTI (urinary tract infection): (3) Weakness: (4) Renal calculi: (5) CKD (chronic kidney disease), stage III: (6) History of colectomy: (7) Obesity hypoventilation syndrome: (8) Acute renal failure superimposed on stage 3 chronic kidney disease: (9) Malaise and fatigue: (10) Acute adrenal insufficiency: Admission and Anticipated Discharge Date Admission Date: September 03, 2020 Supervising Physician Co-Signing Physician Notes Patient seen and examined. EMR reviewed. Discussed with nephrology, ICU nurse, and family practice resident. Agree with assessment and plan as noted. Patient's encephalopathy today is markedly better with correction of her acid- base status and renal failure. Bicarb drip is been discontinued. Continue renal replacement therapy under the direction of nephrology. Her hemodynamics are significantly improved and she is now off vasopressor agents. She was complaining of some wrist pain and abdominal pain however she has had multiple imaging studies in the recent past which have not demonstrated any abnormality so in light of her unrevealing exam will defer additional imaging studies. She has underlying sleep disordered breathing, likely obesity hypoventilation syndrome but has declined therapy with positive airway pressure in the past. Avoid respiratory depressants. She is on antibiotics for UTI. We will see how she does and if she remains stable, can likely transfer to the floor under the hospitalist later today. Will sign off when she leaves the ICU. Subjective Continues to feel fatigued, lethargic today, though better than when she was admitted. Acutely nauseous and vomiting this morning, without improvement with zofran. Has been having frequent episodes of diarrhea. States she has not been Review of Systems Constitutional: + body aches and + malaise; no fever, no chills and no sweats Respiratory: + snoring; no dyspnea, no pain on inspiration and no sputum production Cardiovascular: + lightheadedness; no chest pain and no palpitations Gastrointestinal: + nausea, + vomiting and + diarrhea/loose stools; no abdominal pain Genitourinary: no dysuria, no urinary frequency and no urinary urgency Physical Exam Physical Exam: VITAL SIGNS - Vital signs and nursing notes were reviewed. GENERAL - 64-year-old F, appearing ill, laying back in bed SKIN - Without rashes. HEAD - NC/AT. EYES - PERRL. Sclera anicteric. Palpebral conjunctiva pink and moist with no injection noted. EARS - No deformities of external structures noted on gross examination bilaterally. NOSE - Midline and without cyanosis. No epistaxis or purulent drainage noted. MOUTH/OROPHARYNX - Without perioral cyanosis. NECK - L IJ CVC in place LUNGS - anterior lung mcclellan CTA CARDIAC - RRR. No murmur, rubs, or gallops appreciated. ABDOMEN -nondistended, tender to palp in RUQ, epigastric and LUQ areas NEUROLOGIC - A&Ox3 Results & Data Results & Data ([facility]) Vital Signs (Past 12 Hours) Vital Signs Temp Pulse Pulse Resp BP Pulse Ox 09/05/20 08:55 37.1 C 69 69 125/82 09/05/20 07:45 36.7 C 64 14 94 09/05/20 07:30 67 19 97 09/05/20 07:15 60 18 95 09/05/20 07:00 65 20 94 09/05/20 05:00 61 17 93 09/05/20 04:45 60 17 93 09/05/20 04:36 62 13 131/74 93 09/05/20 04:30 61 16 94 09/05/20 04:15 61 18 95 09/05/20 04:09 37.4 C 09/05/20 03:59 65 12 86/54 L 93 09/05/20 03:35 63 17 137/81 93 09/05/20 03:30 64 17 95 09/05/20 03:15 68 16 94 09/05/20 03:00 62 17 94 09/05/20 02:51 64 09/05/20 02:45 66 19 95 09/05/20 02:37 67 19 148/78 H 94 09/05/20 02:30 65 23 95 09/05/20 02:15 59 L 22 98 09/05/20 02:00 60 20 96 09/05/20 01:45 68 17 96 09/05/20 01:35 67 14 108/62 97 09/05/20 01:30 66 17 95 09/05/20 01:15 70 23 94 09/05/20 01:00 68 16 95 09/05/20 00:52 72 20 94 09/05/20 00:51 70 15 108/71 96 09/05/20 00:45 64 17 94 09/05/20 00:35 65 12 108/71 95 09/05/20 00:30 66 18 95 09/05/20 00:15 65 23 94 09/05/20 00:00 37.4 C 67 17 96 09/04/20 23:45 64 16 94 09/04/20 23:35 66 21 146/93 H 93 09/04/20 23:30 61 15 97 09/04/20 23:15 67 17 96 09/04/20 23:00 61 16 98 09/04/20 22:45 65 20 97 09/04/20 22:30 62 20 96 09/04/20 22:15 90 33 H 89 L 09/04/20 22:00 61 17 98 09/04/20 21:45 62 18 98 09/04/20 21:36 69 15 148/81 H 98 09/04/20 21:30 66 19 98 WBC: 7.69, Hg 98, Hct 31.5, plt 204 na 139, K 2.6, Cl 92, HCO3 45, BUN 14, Cr 2.18, gluc 202 A1c 6.0, Ca 7.1, phos 2.8, Mg 1.6 Tb 0.2, AST 11, ALT 16, Alkphos 120 Total protein 6.2, albumin 2.6 ucx no growth, bcx negative at 24hrs UA 3+ protein, 3+ LE, 1+ blood, >30 WBC, - bacteria I/O: +4L for stay Resident Activity Tracking Resident Involvement: Resident Care Provided Care Provided: Adult Hospital Medicine (1) Acute renal failure superimposed on stage 3 chronic kidney disease Acute renal failure type: with acute tubular necrosis Qualified Code(s): N17.0 - Acute kidney failure with tubular necrosis; N18.3 - Chronic kidney disease, stage 3 (moderate)
--- NOTE | 2020-09-05 09:24 | XRay Report ---
XR wrist RT min 3V routine CLINICAL HISTORY: fall COMPARISON: Right wrist radiographs August 17, 2020. FINDINGS: Alignment of the right wrist is anatomic. No definite fracture is noted. Linear band of sc lerosis within the scaphoid waist is probably artifactual. Right forearm and wrist soft tissue swelli ng is noted. There is mild radiocarpal joint osteoarthritis. IMPRESSION: 1. No definite acute fracture. Equivocal scaphoid waist fracture which is likely artifactual. This co uld be correlated with point tenderness as well as a dedicated navicular view. 2. Right lamas and wrist soft tissue swelling. ACT 112: Negative or not required by law. Electronically signed by: Abdirashid Motta M.D. 09/05/2020 9:23 AM
--- NOTE | 2020-09-05 09:55 | Nephrology Progress Note ---
Date of Service September 05, 2020 Assessment & Plan (1) Acute renal failure: Patient with PERRI on CKD. Baseline creatinine of 1.5 and admission creatinine of 6.2. Creatinine today down to 4.9 after IV fluids. Etiology of acute renal failure likely due to ischemic ATN in setting of sepsis. Given profound acidosis, oliguria and shock, she was started on dialysis on 09/04/2020. I discussed dialysis procedure in detail with the patient. Side effects were discussed. -We will dialyze her for 3 hours with no UF. (2) Metabolic acidosis: Patient with severe metabolic acidosis likely due to renal failure and sepsis. pH was 7.14. We will dialyze her today. Stop bicarb drip. (3) Septic shock: Patient is on antibiotics renally dosed for GFR less than 15mL/min Admission and Anticipated Discharge Date Admission Date: September 03, 2020 Subjective Seen in follow-up for acute kidney injury requiring dialysis. Patient was seen and examined while on dialysis. She feels better today denies shortness of breath. She is off pressors. Review of Systems Review of Systems: All systems reviewed & are unremarkable except as noted in HPI & below Physical Exam Physical Exam: General exam: Appears comfortable, no acute distress HEENT: Pupils are equal and reactive to light Neck: No JVD, neck is supple trachea is midline Respiratory system: Clear breath sounds bilaterally. Gastrointestinal: Abdomen is soft, non distended, non tender, bowel sounds are present CVS: Regular rate and rhythm. No murmurs, rubs or gallops Musculoskeletal: No joint or muscle tenderness Extremities: Non tender, no edema, peripheral pulses are present Neuro: Oriented, bilateral hand tremors, no focal neurological deficits Skin: No rashes Access: CVC Results & Data ([facility]) Vital Signs (Past 12 Hours) Vital Signs Temp Pulse Pulse Resp BP Pulse Ox 09/05/20 09:40 69 92/58 L 09/05/20 09:20 69 96/61 L 09/05/20 09:00 61 91/61 L 09/05/20 08:55 37.1 C 69 69 125/82 09/05/20 07:45 36.7 C 64 14 94 09/05/20 07:30 67 19 97 09/05/20 07:15 60 18 95 09/05/20 07:00 65 20 94 09/05/20 05:00 61 17 93 09/05/20 04:45 60 17 93 09/05/20 04:36 62 13 131/74 93 09/05/20 04:30 61 16 94 09/05/20 04:15 61 18 95 09/05/20 04:09 37.4 C 09/05/20 03:59 65 12 86/54 L 93 09/05/20 03:35 63 17 137/81 93 09/05/20 03:30 64 17 95 09/05/20 03:15 68 16 94 09/05/20 03:00 62 17 94 09/05/20 02:51 64 09/05/20 02:45 66 19 95 09/05/20 02:37 67 19 148/78 H 94 09/05/20 02:30 65 23 95 09/05/20 02:15 59 L 22 98 09/05/20 02:00 60 20 96 09/05/20 01:45 68 17 96 09/05/20 01:35 67 14 108/62 97 09/05/20 01:30 66 17 95 09/05/20 01:15 70 23 94 09/05/20 01:00 68 16 95 09/05/20 00:52 72 20 94 09/05/20 00:51 70 15 108/71 96 09/05/20 00:45 64 17 94 09/05/20 00:35 65 12 108/71 95 09/05/20 00:30 66 18 95 09/05/20 00:15 65 23 94 09/05/20 00:00 37.4 C 67 17 96 09/04/20 23:45 64 16 94 09/04/20 23:35 66 21 146/93 H 93 09/04/20 23:30 61 15 97 09/04/20 23:15 67 17 96 09/04/20 23:00 61 16 98 09/04/20 22:45 65 20 97 09/04/20 22:30 62 20 96 09/04/20 22:15 90 33 H 89 L 09/04/20 22:00 61 17 98 Laboratory Results 09/05/20 05:08 09/05/20 09/05/20 05:08 05:08 WBC 7.69 RBC 3.32 L MCV 94.9 MCH 29.5 MCHC 31.1 L RDW Std Deviation 47.2 H RDW Coeff of Teresa 13.6 Plt Count 204 MPV 10.6 H Phosphorus 2.8 D Albumin 2.6 L
--- NOTE | 2020-09-05 11:49 | Hospitalist Progress Note ---
Date of Service September 05, 2020 Assessment & Plan (1) Acute hypotension: This is a 64yo F with a PMH of DM II, dyslipidemia, CALI, asthma/COPD, bronchiectasis, HTN, CKD III who presents to the ED with worsening weakness and recurrent falls and was found to have acute hypotension and acute renal failure as well as complicated UTI. -Likely secondary to prolonged diarrhea and may be complicated by UTI with sepsis - In setting of acute renal failure and significant dehydration from very little PO fluid intake at home. - Patient is A&Ox4. Continue IV fluids with transition to bicarb drip. Holding lisinopril and Toprol -Was transferred to ICU as she required intravenous pressor to maintain blood pressure -Appreciate supervisor grain and yeast plants input and recommendation -Blood pressure seems to be improving Possible sepsis Thought to be due to UTI Urine culture is growing yeast Blood cultures have been negative She has been on cefepime which will be discontinued after 3 days Chronic diarrhea She has been complaining of loose stools 4 or 5 times daily for the last few weeks We will send stool for C. difficile and also culture Stool has been negative for any C. difficile toxin (2) Acute renal failure: Creatinine significantly elevated at 6.25 (1.48 during admission last week) with hyperkalemia of 5.7. Bicarb 19 -Significant dehydration secondary to prolonged diarrhea with significant metabolic acidosis -Doubt any obstructive uropathy -Received 2 L bolus in ED, transitioning to bicarb drip -Given calcium gluconate for hyperkalemia. Giving 1/2 ampule of D50 prior to administration of IV insulin due to hypoglycemia -Appreciate nephrology input and recommendation -Ongoing dialysis Severe metabolic acidosis on admission Required intravenous bicarb drip Hypokalemia and CO2 level has been up as of this morning Bicarb drip has been stopped Continue hemodialysis (3) Recurrent falls: (4) Weakness: Has had multiple falls of the same nature over the past few months and was admitted with similar symptoms last month -Poor PO intake at home, renal failure, deconditioning -IV fluid resuscitation, fall precautions, PT/OT evaluation, discharge planning (5) Complicated UTI (urinary tract infection): -Possible sepsis secondary to UTI -Abnormal UA with urine, blood cultures pending. Continue empiric Rocephin and IV fluids -CT abd/pelvis with bilateral nephrolithiasis. Persistent small staghorn calculus within a mildly dilated left renal pelvis -Discussed findings with urology, who do not feel procedure is indicated since no strone is obstructing -Doubt any obstructive uropathy -Appreciate urology input and recommendation -Started on intravenous Rocephin and then changed to IV cefepime and daptomycin -Daptomycin has been discontinued by the supervisor grain and yeast plants -Urine culture has been growing yeast and blood cultures are negative -We will discontinue intravenous antibiotic after 3 days (6) Depression: Appears depressed on exam with flattened affect, poor appetite. Continue duloxetine (7) DM type 2 (diabetes mellitus, type 2): -Hold home agents -SSI while in-patient -BSG AC HS -Glycemic pharmacist consulted (8) Obesity hypoventilation syndrome: Also has CALI -CPAP intolerant. Monitor for hypoxia DVT Ppx: SQ heparin Code status: FULL PCP: Mannie Dispo: Admit to PCU. Discharge planning ordered. Admission and Anticipated Discharge Date Admission Date: September 03, 2020 Subjective 09/04/2020 The patient was seen and examined in ICU He was transferred to ICU from PCU due to continued hypotension and requiring intravenous pressors and She remains generally very weak and lethargic and has been checking with severe anxiety Denies any shortness of breath, chest pain or palpitation No abdominal pain, nausea and or vomiting 09/05/2020 The patient was seen and examined in ICU She has been feeling a lot better today but complains today of some epigastric discomfort with nausea and occasional vomiting No distention of the abdomen Denies any fever and/or chills, denies any shortness of breath Review of Systems Review of Systems: All systems reviewed and are unremarkable except as noted below Constitutional: + chills, + fatigue and + weakness Neurologic: + generalized weakness Physical Exam Physical Exam: Lying in bed with some distress due to anxiety and ongoing shaking Constitutional: well developed, well nourished, + ill appearing and + obese Eyes: PERRL, conjunctivae normal, anicteric sclerae ENMT: external ear and nose normal, oropharynx normal Neck: trachea midline, no thyromegaly Respiratory: no respiratory distress (Minimal at rest) Auscultation: lungs clear to auscultation bilaterally and + diminished lung sounds Cardiovascular: Rate/Rhythm: regular rate and regular rhythm Heart Sounds: no murmur Extremities: + edema (Trace edema bilaterally) Gastrointestinal (Abdomen): Inspection/Auscultation: normal bowel sounds; abdomen not distended Percussion/Palpation: + abdomen tender (Mildly tender epigastrium) and abdomen soft Musculoskeletal: No acute arthritis in any joint Neurologic: Generally weak and lethargic. Otherwise alert, awake and oriented x3 Lymphatic: no cervical or axillary lymphadenopathy Results & Data Results & Data ([facility]) Vital Signs (Past 12 Hours) Vital Signs Temp Pulse Pulse Resp BP Pulse Ox 09/05/20 11:40 68 106/60 09/05/20 11:20 66 104/59 L 09/05/20 11:00 69 101/60 09/05/20 10:40 71 98/61 L 09/05/20 10:20 69 95/58 L 09/05/20 10:00 61 92/57 L 09/05/20 09:40 69 92/58 L 09/05/20 09:20 69 96/61 L 09/05/20 09:00 61 91/61 L 09/05/20 08:55 37.1 C 69 69 125/82 09/05/20 07:45 36.7 C 64 14 94 09/05/20 07:30 67 19 97 09/05/20 07:15 60 18 95 09/05/20 07:00 65 20 94 09/05/20 05:00 61 17 93 09/05/20 04:45 60 17 93 09/05/20 04:36 62 13 131/74 93 09/05/20 04:30 61 16 94 09/05/20 04:15 61 18 95 09/05/20 04:09 37.4 C 09/05/20 03:59 65 12 86/54 L 93 09/05/20 03:35 63 17 137/81 93 09/05/20 03:30 64 17 95 09/05/20 03:15 68 16 94 09/05/20 03:00 62 17 94 09/05/20 02:51 64 09/05/20 02:45 66 19 95 09/05/20 02:37 67 19 148/78 H 94 09/05/20 02:30 65 23 95 09/05/20 02:15 59 L 22 98 09/05/20 02:00 60 20 96 09/05/20 01:45 68 17 96 09/05/20 01:35 67 14 108/62 97 09/05/20 01:30 66 17 95 09/05/20 01:15 70 23 94 09/05/20 01:00 68 16 95 09/05/20 00:52 72 20 94 09/05/20 00:51 70 15 108/71 96 09/05/20 00:45 64 17 94 09/05/20 00:35 65 12 108/71 95 09/05/20 00:30 66 18 95 09/05/20 00:15 65 23 94 09/05/20 00:00 37.4 C 67 17 96 09/04/20 23:45 64 16 94 Laboratory Results Short CBC 09/05/20 Range/Units 05:08 WBC 7.69 (4.8-10.8) K/uL Hgb 9.8 L (12.0-16.0) g/dL Hct 31.5 L (37-47) % Plt Count 204 (130-400) K/uL BMP 09/05/20 05:08 Sodium 139 Potassium 2.6 L D Chloride 92 L Carbon Dioxide 45 H* BUN 14 D Creatinine 2.18 H D Glucose 202 H Calcium 7.1 L Liver Function 09/05/20 Range/Units 05:08 Total Bilirubin 0.2 (0.2-1) mg/dl AST 11 L (15-37) U/L ALT 16 (12-78) U/L Alkaline Phosphatase 120 H (45-117) U/L Albumin 2.6 L (3.4-5.0) gm/dl Medications Administered Current Inpatient Medications Acetaminophen (Acetaminophen 325 Mg Tab) 650 mg PO Q4H PRN PRN Reason: Pain or Fever Stop: 10/03/20 20:44 Last Admin: 09/04/20 16:51 Dose: 650 mg Documented by: Albuterol (Albuterol Hfa 8 Gm Inhaler) 2 puffs INH Q4H PRN PRN Reason: Shortness Of Breath Stop: 10/03/20 20:31 Albuterol (Albut/Ipratrop 3mg/0.5mg Neb 3 Ml Vial) 3 ml NEB Q4R PRN PRN Reason: Shortness Of Breath Or Wheezing Stop: 10/04/20 03:26 Clopidogrel Bisulfate (Clopidogrel Bisulfate 75 Mg Tab) 75 mg PO QPM MARLA Stop: 10/03/20 20:59 Last Admin: 09/05/20 01:44 Dose: Not Given Documented by: Dextrose (Dextrose 50% 50 Ml Syringe) 25 - 50 ml IV UD PRN; Protocol PRN Reason: Hypoglycemia Protocol Stop: 10/03/20 20:44 Doxepin HCl (Doxepin Hcl 50 Mg Capsule) 100 mg PO HS [facility] Stop: 10/04/20 20:59 Last Admin: 09/05/20 01:43 Dose: Not Given Documented by: Duloxetine HCl (Duloxetine Hcl 60 Mg Cap) 60 mg PO QAM [facility] Stop: 10/04/20 08:59 Ferrous Sulfate (Ferrous Sulfate 325 Mg Tab) 325 mg PO BID [facility] Stop: 10/04/20 08:59 Last Admin: 09/05/20 01:40 Dose: Not Given Documented by: Fludrocortisone Acetate (Fludrocortisone Acetate 0.1 Mg Tab) 0.1 mg PO QAM [facility] Stop: 10/04/20 09:29 Last Admin: 09/04/20 10:29 Dose: Not Given Documented by: Glucagon (Glucagon For Inj 1 Mg Vial) 1 mg SQ UD PRN; Protocol PRN Reason: Hypoglycemia Protocol Stop: 10/03/20 20:44 Glucose (Glucose 10 Tabs/Tube) 4 - 8 tabs PO UD PRN; Protocol PRN Reason: Hypoglycemia Protocol Stop: 10/03/20 20:44 Glucose (Glucose 40% Gel 15 Gm Tube) 15 - 30 gm PO UD PRN; Protocol PRN Reason: Hypoglycemia Protocol Stop: 10/03/20 20:44 Heparin Sodium (Beef Lung) (Heparin 10 Unit/Ml 5 Ml Flush) 5 ml FLUSH PRN PRN PRN Reason: Flush Stop: 10/04/20 23:52 Norepinephrine Bitartrate (Levophed/D5w) 8 mg in 508 mls @ 18.669 mls/hr IV .Q24H MARLA; Protocol Stop: 10/03/20 23:44 Last Titration: 09/05/20 07:08 Dose: 0.02 mcg/kg/min, 7.5 mls/hr Documented by: Hydrocortisone Sodium (Succinate 50 mg/ Syringe) 1 mls @ 4 mls/min IV Q6H [facility] Stop: 10/04/20 08:59 Last Admin: 09/05/20 07:33 Dose: 4 mls/min Documented by: Pantoprazole Sodium 40 mg/ (Syringe) 10 mls @ 5 mls/min IV BID [facility] Stop: 10/05/20 08:59 Sodium Chloride (Nss 1000ml) 1,000 mls @ 0 mls/hr IV .Q0M PRN PRN Reason: For Hemodialysis Use ONLY Stop: 09/05/20 14:28 Cefepime HCl 2,000 mg/ Syringe 20 mls @ 5 mls/min IV Q24H [facility]; Protocol Stop: 09/13/20 21:59 Insulin Aspart (Insulin Aspart 100 Units/Ml 3 Ml Pen) 0 units SC ACHS [facility] Stop: 10/04/20 16:29 Last Admin: 09/05/20 07:29 Dose: 2 units Documented by: Lidocaine (Lidocaine 5% 1 Patch) 1 patch TD DAILY [facility] Stop: 10/04/20 08:59 Last Admin: 09/04/20 10:28 Dose: Not Given Documented by: Magnesium Oxide (Magnesium Oxide 400 Mg Tab) 400 mg PO HS [facility] Stop: 10/03/20 20:59 Last Admin: 09/05/20 01:44 Dose: Not Given Documented by: Miscellaneous (Remove Lidoderm Patch) 1 ea N/A DAILY@2100 [facility] Stop: 10/03/20 20:59 Last Admin: 09/05/20 01:45 Dose: Not Given Documented by: Miscellaneous (Carbohydrates For Hypoglycemia ) 15 - 30 gm PO UD PRN PRN Reason: Hypoglycemia Protocol Stop: 10/03/20 20:44 Miscellaneous (Icu Electrolyte Replacement Protocol) 1 ea N/A BID@06,18 [facility]; Protocol Stop: 09/12/20 17:59 Miscellaneous Information (*Renal Dosing Consult (For Home Meds)*) 1 ea N/A UD PRN PRN Reason: Consult Stop: 10/03/20 21:11 Miscellaneous Information (Cefepime Consult Active) 1 ea N/A UD PRN PRN Reason: Consult Stop: 10/04/20 00:17 Ondansetron HCl (Ondansetron Inj 2 Mg/Ml 2 Ml Vial) 4 mg IV Q6H PRN PRN Reason: Nausea Stop: 10/04/20 22:35 Last Admin: 09/05/20 06:20 Dose: 4 mg Documented by: Oxcarbazepine (Oxcarbazepine 150 Mg Tablet) 150 mg PO BID [facility]; Protocol Stop: 10/03/20 21:59 Last Admin: 09/05/20 01:43 Dose: Not Given Documented by: Saccharomyces Boulardii (Saccharomyces Boulardii 250 Mg Cap) 250 mg PO BID [facility] Stop: 10/03/20 20:59 Last Admin: 09/05/20 01:40 Dose: Not Given Documented by: Vitamin D (Cholecalciferol 1,000 Units 25 Mcg Tab) 2,000 units PO QAM [facility] Stop: 10/04/20 08:59 Last Admin: 09/04/20 10:29 Dose: Not Given Documented by:
[2020-09-05] MEDS: PANTOprazole 40 MG in SYRINGE 0 ML IV SCH ×2 (12:15→21:33)
--- NOTE | 2020-09-05 13:56 | Billing Data ---
Date of Service September 05, 2020 Coding Level of Care Code 24208 Subseq Hosp Care Lvl 3
[2020-09-05] MEDS ORDERED: cefTRIAXone SODIUM 2,000 MG in DEXTROSE 5% 50 ML IV SCH (14:00)
[2020-09-05 14:14] LABS: iSTAT Art Bld Gas pCO2 Correct 50 mmHg (35-46); iSTAT Art Bld Gas pH Corrected 7.438 (7.35-7.45); iSTAT Arterial Blood Gas HCO3 34 meg/L (19-24); iSTAT Arterial Blood Gas pCO2 50 mmHg (35-46); iSTAT Arterial Blood Gas pH 7.44 (7.35-7.45); iSTAT Arterial Blood Gas pO2 107 mmHg (80-95); iSTAT Arterial Blood Gas pO2 C 108; iSTAT Carbon Dioxide 35 mmol/L (24-31); iSTAT Hematocrit 29 % (37-47); iSTAT Hemoglobin 9.9 g/dl (12.0-16.0); iSTAT Potassium 3.6 mmol/L (3.3-5.0); iSTAT Site Art Line; iSTAT Sodium 141 mmol/L (135-144)
[2020-09-05] MEDS: CHOLECALCIFEROL 1,000 UNITS 25 MCG TAB PO SCH (15:06)
[2020-09-05] MEDS: FLUDROCORTISONE ACETATE 0.1 MG TAB PO SCH (15:06)
[2020-09-05] MEDS: LIDOCAINE 5% 1 PATCH TD SCH (15:06)
[2020-09-05] MEDS: ICU ELECTROLYTE REPLACEMENT PROTOCOL SCH (17:31)
--- NOTE | 2020-09-05 21:18 | Electrocardiogram Report ---
Test Reason : Blood Pressure : / mmHG Vent. Rate : 077 BPM Atrial Rate : 077 BPM P-R Int : 200 ms QRS Dur : 072 ms QT Int : 346 ms P-R-T Axes : 048 004 062 degrees QTc Int : 391 ms Poor data quality, interpretation may be adversely affected Normal sinus rhythm Low voltage QRS Borderline ECG When compared with ECG of 03-SEP-2020 15:41, No significant change was found Confirmed by Joshua Hobson ([id number]) on 09/05/2020 9:17:52 PM Referred By: REFERRED SELF Confirmed By:Joshua Hobson
[2020-09-05] MEDS ORDERED: CEFEPIME 2,000 MG in SYRINGE 0 ML IV SCH (22:00)
[2020-09-05] MEDS: HEPARIN SOD 5,000 UNIT/0.5 ML VIAL SQ SCH (23:46)
[2020-09-06] MEDS: HYDROCORTISONE SOD 50 MG in SYRINGE 0 ML IV SCH ×4 (04:33→20:31)
[2020-09-06 05:40] LABS: BUN Creatinine Ratio 4.3 (10-20); Calcium 8.2 mg/dl (8.5-10.1); Creatinine Clr Calc Pharmacy 37.9 ml/min; Est GFR (African American) 40.7; Est GFR (Non-African American) 35.1; Magnesium 1.7 mg/dl (1.8-2.4); Phosphorus 3.2 mg/dl (2.5-4.9); Potassium 3.5 mmol/L (3.5-5.1)
[2020-09-06 06:13] LABS: Basophils # (auto) 0.02 K/uL (0-0.2); Basophils % (auto) 0.3 %; Eosinophils # (auto) 0.01 K/uL (0-0.5); Eosinophils % (auto) 0.2 %; Hematocrit (blood only) 32.7 % (37-47); Hemoglobin 9.6 g/dL (12.0-16.0); Immature Granulocytes # (auto) 0.01 K/uL (0.00-0.02); Immature Granulocytes % (auto) 0.2 %; Lymphocytes # (auto) 0.81 K/uL (1.2-3.4); Lymphocytes % (auto) 12.2 %; Mean Corpuscular Hemoglobin 29.4 pg (25-34); Mean Corpuscular Hgb Conc 29.4 g/dL (32-36); Monocytes # (auto) 0.71 K/uL (0.11-0.59); Monocytes % (auto) 10.7 %; Neutrophils # (auto) 5.06 K/uL (1.4-6.5); Neutrophils % (auto) 76.4 %; Platelet Count 201 K/uL (130-400); Red Blood Count 3.27 M/uL (4.2-5.4); White Blood Count 6.62 K/uL (4.8-10.8)
[2020-09-06] MEDS: ICU ELECTROLYTE REPLACEMENT PROTOCOL SCH ×2 (06:39→16:37)
[2020-09-06] MEDS: PANTOprazole 40 MG in SYRINGE 0 ML IV SCH ×2 (08:35→20:31)
[2020-09-06] MEDS: INSULIN ASPART 100 UNITS/ML 3 ML PEN SC SCH ×4 (08:36→20:56)
[2020-09-06] MEDS ORDERED: LORazepam 0.25 MG/0.5 ML VIAL IV STA (09:55)
[2020-09-06] MEDS ORDERED: ALUMINUM/MAGNESIUM SUSP 30 ML UDC PO STA (09:55)
[2020-09-06] MEDS: LIDOCAINE 5% 1 PATCH TD SCH (10:12)
[2020-09-06] MEDS ORDERED: PROMETHAZINE HCL 25 MG in SODIUM CHLORIDE 0.9% 50 ML IV ONE (10:15)
[2020-09-06] MEDS: HEPARIN SOD 5,000 UNIT/0.5 ML VIAL SQ SCH ×2 (10:15→20:31)
[2020-09-06] MEDS: OXcarbazepine 150 MG TABLET PO SCH (10:54)
[2020-09-06] MEDS: FLUDROCORTISONE ACETATE 0.1 MG TAB PO SCH (11:01)
[2020-09-06] MEDS: SACCHAROMYCES BOULARDII 250 MG CAP PO SCH (11:01)
[2020-09-06] MEDS: FERROUS SULFATE 325 MG TAB PO SCH (11:01)
[2020-09-06] MEDS: DULoxetine HCL 60 MG CAP PO SCH (11:01)
[2020-09-06] MEDS: CHOLECALCIFEROL 1,000 UNITS 25 MCG TAB PO SCH (11:01)
[2020-09-06] MEDS ORDERED: PROMETHAZINE HCL 12.5 MG in SODIUM CHLORIDE 0.9% 50 ML IV PRN (15:47)
[2020-09-06] MEDS ORDERED: ALUMINUM/MAGNESIUM SUSP 30 ML UDC PO PRN (15:47)
[2020-09-06] MEDS ORDERED: LORazepam 0.25 MG/0.5 ML VIAL IV PRN (15:47)
--- NOTE | 2020-09-06 15:55 | Nephrology Progress Note ---
Date of Service September 06, 2020 Assessment & Plan (1) Acute renal failure: Patient with PERRI on CKD. Baseline creatinine of 1.5 and admission creatinine of 6.2. Creatinine today down to baseline after HD x 1 and after IV fluids. Nonoliguric schemic ATN in setting of sepsis. Given profound acidosis, oliguria and shock, she had two txs of dialysis on 09/04 & . -no HD today -would keep catheter one more day at least (2) Metabolic acidosis: Patient with severe metabolic acidosis likely due to renal failure and sepsis. pH was 7.14. normalized after 2 rds dialysis. -daily bmp; may well worsen again w/ ongoing diarrhea Admission and Anticipated Discharge Date Admission Date: September 03, 2020 Subjective seen on rounds this am at about 0910. still feels quite weak but improved. not sob. c/o N; no more emesis; ongoing diarrhea, mild abd pain. Review of Systems Review of Systems: All systems reviewed & are unremarkable except as noted in HPI & below Physical Exam Constitutional: well developed, well nourished and cooperative on02nc Eyes: EOM intact bilaterally ENMT: Ears: no external ear abnormality Nose: no external nose abnormality Mouth: + dry oral mucous membranes Neck: no nuchal rigidity Respiratory: normal respiratory effort and able to speak in complete sentences; no respiratory distress Auscultation: + diminished lung sounds Cardiovascular: Rate/Rhythm: regular rate and regular rhythm Extremities: + edema (trace) Gastrointestinal (Abdomen): Inspection/Auscultation: normal bowel sounds Percussion/Palpation: abdomen soft; abdomen nontender Musculoskeletal: Extremities: + abnormal strength Skin: no rashes, warm and dry Neurologic: gomez, fluent speech w/ psychomotor slowing mild; axial tremor Psychiatric: A+Ox3, euthymic affect Results & Data ([facility]) Vital Signs (Past 12 Hours) Vital Signs Temp Pulse Pulse Resp BP BP Pulse Ox 09/06/20 15:41 37.2 C 64 18 118/92 97 09/06/20 12:34 36.6 C 63 18 167/84 H 100 09/06/20 07:54 37.1 C 72 20 133/82 98 09/06/20 07:26 65 09/06/20 04:00 37 C 74 18 146/85 H 98 Laboratory Results 09/06/20 04:50 09/06/20 04:50
[2020-09-06] MEDS: oxyCODONE HCL IR 5 MG TAB (IMMEDIATE RELEASE) PO PRN (17:11)
--- NOTE | 2020-09-06 17:15 | Hospitalist Progress Note ---
Date of Service September 06, 2020 Assessment & Plan (1) Acute hypotension: This is a 64yo F with a PMH of DM II, dyslipidemia, CALI, asthma/COPD, bronchiectasis, HTN, CKD III who presents to the ED with worsening weakness and recurrent falls and was found to have acute hypotension and acute renal failure as well as complicated UTI. -Likely secondary to prolonged diarrhea and may be complicated by UTI with sepsis - In setting of acute renal failure and significant dehydration from very little PO fluid intake at home. - Patient is A&Ox4. Continue IV fluids with transition to bicarb drip. Holding lisinopril and Toprol -Was transferred to ICU as she required intravenous pressor to maintain blood pressure -Appreciate field associate input and recommendation -Blood pressure seems to be improving -Blood pressure remains stable Possible sepsis Thought to be due to UTI Urine culture is growing yeast Blood cultures have been negative She has been on cefepime which will be discontinued after 3 days No evidence of UTI and blood cultures have been negative We will discontinue antibiotic Chronic diarrhea She has been complaining of loose stools 4 or 5 times daily for the last few weeks We will send stool for C. difficile and also culture Stool has been negative for any C. difficile toxin Extreme anxiety with increased shakiness since this morning Also complaining of abdominal discomfort and nausea Was given Phenergan, Maalox and Ativan as needed (2) Acute renal failure: Creatinine significantly elevated at 6.25 (1.48 during admission last week) with hyperkalemia of 5.7. Bicarb 19 -Significant dehydration secondary to prolonged diarrhea with significant metabolic acidosis -Doubt any obstructive uropathy -Received 2 L bolus in ED, transitioning to bicarb drip -Given calcium gluconate for hyperkalemia. Giving 1/2 ampule of D50 prior to administration of IV insulin due to hypoglycemia -Appreciate nephrology input and recommendation -Has had dialysis -Creatinine has been improving and going to worse her baseline -We will continue current medications Severe metabolic acidosis on admission Required intravenous bicarb drip Hypokalemia and CO2 level has been up as of this morning Bicarb drip has been stopped Received hemodialysis Metabolic acidosis seems to be corrected (3) Recurrent falls: (4) Weakness: Has had multiple falls of the same nature over the past few months and was admitted with similar symptoms last month -Poor PO intake at home, renal failure, deconditioning -IV fluid resuscitation, fall precautions, PT/OT evaluation, discharge planning Will start PT and OT evaluation (5) Complicated UTI (urinary tract infection): -Nephrolithiasis with staghorn calculus in left pelvis -Possible sepsis secondary to UTI has been ruled out -Abnormal UA with urine, blood cultures pending. Continue empiric Rocephin and IV fluids -CT abd/pelvis with bilateral nephrolithiasis. Persistent small staghorn calculus within a mildly dilated left renal pelvis -Discussed findings with urology, who do not feel procedure is indicated since no strone is obstructing -Doubt any obstructive uropathy -Appreciate urology input and recommendation -Started on intravenous Rocephin and then changed to IV cefepime and daptomycin -Daptomycin has been discontinued by the field associate -Urine culture has been growing yeast and blood cultures are negative -We will discontinue intravenous antibiotic after 3 days Nephrolithiasis Has been complaining of abdominal pain Has allergy to morphine and Dilaudid Reviewed the medical records and she got oxycodone and let 2018 Will try oral oxycodone to control pain (6) Depression: Appears depressed on exam with flattened affect, poor appetite. Continue duloxetine (7) DM type 2 (diabetes mellitus, type 2): -Hold home agents -SSI while in-patient -BSG AC HS -Glycemic pharmacist consulted (8) Obesity hypoventilation syndrome: Also has CALI -CPAP intolerant. Monitor for hypoxia DVT Ppx: SQ heparin Code status: FULL PCP: Mannie Dispo: Admit to PCU. Discharge planning ordered. Admission and Anticipated Discharge Date Admission Date: September 03, 2020 Subjective 09/04/2020 The patient was seen and examined in ICU He was transferred to ICU from PCU due to continued hypotension and requiring intravenous pressors and She remains generally very weak and lethargic and has been checking with severe anxiety Denies any shortness of breath, chest pain or palpitation No abdominal pain, nausea and or vomiting 09/05/2020 The patient was seen and examined in ICU She has been feeling a lot better today but complains today of some epigastric discomfort with nausea and occasional vomiting No distention of the abdomen Denies any fever and/or chills, denies any shortness of breath 09/06/2020 The patient was seen and examined in telemetry unit She has been complaining of nausea, back pain and not been feeling well She has not been eating or drinking and has been taking her oral medications Denies any fever and/or chills Review of Systems Review of Systems: All systems reviewed and are unremarkable except as noted below Constitutional: + chills, + fatigue and + weakness Neurologic: + generalized weakness Physical Exam Physical Exam: Lying in bed with some distress due to anxiety and ongoing shaking Constitutional: well developed, well nourished, + acute distress (Due to epigastric/abdominal pain and nausea), + ill appearing and + obese Eyes: PERRL, conjunctivae normal, anicteric sclerae ENMT: external ear and nose normal, oropharynx normal Neck: trachea midline, no thyromegaly Respiratory: no respiratory distress (Minimal at rest) Auscultation: lungs clear to auscultation bilaterally and + diminished lung sounds Cardiovascular: Rate/Rhythm: regular rate and regular rhythm Heart Sounds: no murmur Extremities: + edema (Trace edema bilaterally) Gastrointestinal (Abdomen): Inspection/Auscultation: normal bowel sounds; abdomen not distended Percussion/Palpation: + abdomen tender (Mildly tender epigastrium) and abdomen soft Musculoskeletal: No acute arthritis in any joint Neurologic: Alert, awake. Generally weak and lethargic. Very shaky and anxious Psychiatric: Affect: + anxious affect Mood: + anxious mood and + irritable mood Lymphatic: no cervical or axillary lymphadenopathy Results & Data Results & Data ([facility]) Vital Signs (Past 12 Hours) Vital Signs Temp Pulse Pulse Resp BP BP Pulse Ox 09/06/20 15:43 68 09/06/20 15:41 37.2 C 64 18 118/92 97 09/06/20 12:34 36.6 C 63 18 167/84 H 100 09/06/20 07:54 37.1 C 72 20 133/82 98 09/06/20 07:26 65 Laboratory Results Short CBC 09/06/20 Range/Units 04:50 WBC 6.62 (4.8-10.8) K/uL Hgb 9.6 L (12.0-16.0) g/dL Hct 32.7 L (37-47) % Plt Count 201 (130-400) K/uL BMP 09/06/20 04:50 Sodium 143 Potassium 3.5 D Chloride 108 H Carbon Dioxide 35 H BUN 7 D Creatinine 1.53 H D Glucose 110 H Calcium 8.2 L D Medications Administered Current Inpatient Medications Acetaminophen (Acetaminophen 325 Mg Tab) 650 mg PO Q4H PRN PRN Reason: Pain or Fever Stop: 10/03/20 20:44 Last Admin: 09/04/20 16:51 Dose: 650 mg Documented by: Al Hydrox/Mg Hydrox/Simethicone (Aluminum/Magnesium Susp 30 Ml Udc) 30 ml PO Q6H PRN PRN Reason: Dyspepsia Stop: 10/06/20 15:46 Last Admin: 09/06/20 16:10 Dose: 30 ml Documented by: Albuterol (Albuterol Hfa 8 Gm Inhaler) 2 puffs INH Q4H PRN PRN Reason: Shortness Of Breath Stop: 10/03/20 20:31 Albuterol (Albut/Ipratrop 3mg/0.5mg Neb 3 Ml Vial) 3 ml NEB Q4R PRN PRN Reason: Shortness Of Breath Or Wheezing Stop: 10/04/20 03:26 Clopidogrel Bisulfate (Clopidogrel Bisulfate 75 Mg Tab) 75 mg PO QPM [facility] Stop: 10/03/20 20:59 Last Admin: 09/05/20 23:47 Dose: Not Given Documented by: Dextrose (Dextrose 50% 50 Ml Syringe) 25 - 50 ml IV UD PRN; Protocol PRN Reason: Hypoglycemia Protocol Stop: 10/03/20 20:44 Doxepin HCl (Doxepin Hcl 50 Mg Capsule) 100 mg PO HS [facility] Stop: 10/04/20 20:59 Last Admin: 09/05/20 23:47 Dose: Not Given Documented by: Duloxetine HCl (Duloxetine Hcl 60 Mg Cap) 60 mg PO QAM [facility] Stop: 10/04/20 08:59 Last Admin: 09/06/20 11:01 Dose: Not Given Documented by: Ferrous Sulfate (Ferrous Sulfate 325 Mg Tab) 325 mg PO BID [facility] Stop: 10/04/20 08:59 Last Admin: 09/06/20 11:01 Dose: Not Given Documented by: Fludrocortisone Acetate (Fludrocortisone Acetate 0.1 Mg Tab) 0.1 mg PO QAM [facility] Stop: 10/04/20 09:29 Last Admin: 09/06/20 11:01 Dose: Not Given Documented by: Glucagon (Glucagon For Inj 1 Mg Vial) 1 mg SQ UD PRN; Protocol PRN Reason: Hypoglycemia Protocol Stop: 10/03/20 20:44 Glucose (Glucose 10 Tabs/Tube) 4 - 8 tabs PO UD PRN; Protocol PRN Reason: Hypoglycemia Protocol Stop: 10/03/20 20:44 Glucose (Glucose 40% Gel 15 Gm Tube) 15 - 30 gm PO UD PRN; Protocol PRN Reason: Hypoglycemia Protocol Stop: 10/03/20 20:44 Heparin Sodium (Beef Lung) (Heparin 10 Unit/Ml 5 Ml Flush) 5 ml FLUSH PRN PRN PRN Reason: Flush Stop: 10/04/20 23:52 Heparin Sodium (Porcine) (Heparin Sod 5,000 Unit/0.5 Ml Vial) 5,000 units SQ Q12 [facility] Stop: 10/05/20 20:59 Last Admin: 09/06/20 10:15 Dose: Not Given Documented by: Hydrocortisone Sodium (Succinate 50 mg/ Syringe) 1 mls @ 4 mls/min IV Q6H [facility] Stop: 10/04/20 08:59 Last Admin: 09/06/20 15:11 Dose: 4 mls/min Documented by: Pantoprazole Sodium 40 mg/ (Syringe) 10 mls @ 5 mls/min IV BID [facility] Stop: 10/05/20 08:59 Last Admin: 09/06/20 08:35 Dose: 5 mls/min Documented by: Promethazine HCl 12.5 mg/ (Sodium Chloride) 50.5 mls @ 202 mls/hr IV Q6H PRN PRN Reason: Nausea And Vomiting Stop: 10/06/20 15:46 Last Infusion: 09/06/20 16:39 Dose: Infused Documented by: Lorazepam (Ativan) 0.25 mg in 0.5 mls @ 0.5 mls/min IV Q4H PRN PRN Reason: Agitation Stop: 10/06/20 15:46 Insulin Aspart (Insulin Aspart 100 Units/Ml 3 Ml Pen) 0 units SC ACHS [facility] Stop: 10/04/20 16:29 Last Admin: 09/06/20 16:38 Dose: Not Given Documented by: Lidocaine (Lidocaine 5% 1 Patch) 1 patch TD DAILY [facility] Stop: 10/04/20 08:59 Last Admin: 09/06/20 10:12 Dose: 1 patch Documented by: Magnesium Oxide (Magnesium Oxide 400 Mg Tab) 400 mg PO HS [facility] Stop: 10/03/20 20:59 Last Admin: 11/27/20 23:47 Dose: Not Given Documented by: Miscellaneous (Remove Lidoderm Patch) 1 ea N/A DAILY@2100 [facility] Stop: 10/03/20 20:59 Last Admin: 09/05/20 23:48 Dose: 1 ea Documented by: Miscellaneous (Carbohydrates For Hypoglycemia ) 15 - 30 gm PO UD PRN PRN Reason: Hypoglycemia Protocol Stop: 10/03/20 20:44 Miscellaneous (Icu Electrolyte Replacement Protocol) 1 ea N/A BID@18 [facility]; Protocol Stop: 09/12/20 17:59 Last Admin: 09/06/20 16:37 Dose: Not Given Documented by: Ondansetron HCl (Ondansetron Inj 2 Mg/Ml 2 Ml Vial) 4 mg IV Q6H PRN PRN Reason: Nausea Stop: 10/04/20 22:35 Last Admin: 09/05/20 21:48 Dose: 4 mg Documented by: Oxcarbazepine (Oxcarbazepine 150 Mg Tablet) 300 mg PO BID [facility]; Protocol Stop: 10/06/20 20:59 Oxycodone HCl (Oxycodone Hcl Ir 5 Mg Tab (Immediate Release)) 10 mg PO Q4H PRN PRN Reason: Pain Stop: 09/20/20 16:38 Saccharomyces Boulardii (Saccharomyces Boulardii 250 Mg Cap) 250 mg PO BID [facility] Stop: 10/03/20 20:59 Last Admin: 09/06/20 11:01 Dose: Not Given Documented by: Vitamin D (Cholecalciferol 1,000 Units 25 Mcg Tab) 2,000 units PO QAM [facility] Stop: 10/04/20 08:59 Last Admin: 09/06/20 11:01 Dose: Not Given Documented by:
[2020-09-07] MEDS: DOXEPIN HCL 50 MG CAPSULE PO SCH ×2 (01:29→20:14)
[2020-09-07] MEDS: MAGNESIUM OXIDE 400 MG TAB PO SCH ×2 (01:29→20:13)
[2020-09-07] MEDS: CLOPIDOGREL BISULFATE 75 MG TAB PO SCH ×2 (01:29→20:13)
[2020-09-07] MEDS: FERROUS SULFATE 325 MG TAB PO SCH ×3 (01:29→20:13)
[2020-09-07] MEDS: SACCHAROMYCES BOULARDII 250 MG CAP PO SCH ×3 (01:29→20:13)
[2020-09-07] MEDS: OXcarbazepine 150 MG TABLET PO SCH ×3 (01:30→20:14)
[2020-09-07] MEDS: HYDROCORTISONE SOD 50 MG in SYRINGE 0 ML IV SCH ×2 (03:41→09:05)
[2020-09-07] MEDS: ICU ELECTROLYTE REPLACEMENT PROTOCOL SCH (08:18)
[2020-09-07 08:28] LABS: Basophils # (auto) 0.01 K/uL (0-0.2); Basophils % (auto) 0.1 %; Eosinophils # (auto) 0.03 K/uL (0-0.5); Eosinophils % (auto) 0.4 %; Hematocrit (blood only) 33.7 % (37-47); Immature Granulocytes # (auto) 0.02 K/uL (0.00-0.02); Immature Granulocytes % (auto) 0.3 %; Lymphocytes # (auto) 1.16 K/uL (1.2-3.4); Lymphocytes % (auto) 16.1 %; Mean Corpuscular Hemoglobin 29.9 pg (25-34); Mean Corpuscular Hgb Conc 29.7 g/dL (32-36); Mean Corpuscular Volume 100.9 fL (80-100); Mean Platelet Volume 10.9 fL (7.4-10.4); Monocytes # (auto) 0.55 K/uL (0.11-0.59); Monocytes % (auto) 7.6 %; Neutrophils # (auto) 5.43 K/uL (1.4-6.5); Neutrophils % (auto) 75.5 %; Platelet Count 220 K/uL (130-400); RDW Coefficient of Variation 13.7 % (11.5-14.5); RDW Standard Deviation 50.7 fL (36.4-46.3); Red Blood Count 3.34 M/uL (4.2-5.4)
[2020-09-07 08:53] LABS: Albumin Globulin Ratio 0.8 (0.9-2); BUN Creatinine Ratio 9.9 (10-20); Bilirubin,Total 0.4 mg/dl (0.2-1); Calcium 9.1 mg/dl (8.5-10.1); Creatinine Clr Calc Pharmacy 34.5 ml/min; Est GFR (African American) 37.4; Est GFR (Non-African American) 32.3; Globulin 3.6 gm/dl (2.5-4.0); Magnesium 1.8 mg/dl (1.8-2.4); Phosphorus 3.8 mg/dl (2.5-4.9); Potassium 3.7 mmol/L (3.5-5.1); Total Protein 6.6 gm/dl (6.4-8.2)
[2020-09-07] MEDS: INSULIN ASPART 100 UNITS/ML 3 ML PEN SC SCH ×4 (09:04→20:12)
[2020-09-07] MEDS: PANTOprazole 40 MG in SYRINGE 0 ML IV SCH ×2 (09:05→20:14)
[2020-09-07] MEDS: LIDOCAINE 5% 1 PATCH TD SCH (09:06)
[2020-09-07] MEDS: HEPARIN SOD 5,000 UNIT/0.5 ML VIAL SQ SCH ×2 (09:06→20:15)
[2020-09-07] MEDS: oxyCODONE HCL IR 5 MG TAB (IMMEDIATE RELEASE) PO PRN ×2 (09:16→17:18)
[2020-09-07] MEDS: ONDANSETRON INJ 2 MG/ML 2 ML VIAL IV PRN (09:17)
[2020-09-07] MEDS: FLUDROCORTISONE ACETATE 0.1 MG TAB PO SCH (09:21)
[2020-09-07] MEDS: DULoxetine HCL 60 MG CAP PO SCH (09:21)
[2020-09-07] MEDS: CHOLECALCIFEROL 1,000 UNITS 25 MCG TAB PO SCH (09:22)
--- NOTE | 2020-09-07 10:55 | Nephrology Progress Note ---
Date of Service September 07, 2020 Assessment & Plan (1) CKD (chronic kidney disease), stage III: Patient admitted with PERRI on CKD3 >> Baseline creatinine of 1.5 and admission creatinine of 6.2 from Nonliguric ischemic ATN in setting of profound hypotension and metabolic acidosis; sepsis was ruled out. Given profound acidosis, oliguria and shock, she had two txs of dialysis on 09/04 & . creatinine at baseline past 48 hrs. -no further HD needed ->> recommend having crit care or IV team remove dialysis catheter -daily bmp -gentle IVF as below Present on Admission?: Yes (2) Flank pain with history of urolithiasis: pt with known staghorn calculus L and BL nephrolithiasis; also with hx chronic intermittent flank pain and recurrent UTI as OP; urology saw her at admission and day after > no intervention needed. today w/ more pain and basically stable renal function and hgb -recommend renal u/s today to ensure no worsening; call urology if changes on u/s related to L hydropnephrosis; -continue pain patch, reassurance -will give IVF (1/2NS at 50 mL hourly x 1 L) to increase UOP given that she is not tolerating po very well Present on Admission?: Yes (3) Disorders of fluid, electrolyte, and acid-base balance: Patient with severe metabolic acidosis likely due to ATN on presentation; also significant diarrhea on presentation. pH was 7.14. normalized after 2 rds dialysis. -as above/no further dialysis needed >>>today w/ new mild hypernatremia, mild hyperchloremia, slight bump of creatinine > suggestive of mild dehydration and will start tasha IVF which should be stopped if CXR w/ worsening vascular congestion >>she is on stress dosed steroids and fludrocortisone with hx of normal random cortisol levels and no formal dx of adrenal insufficiency >> she has refused all fludrocortisone doses, does not take it as OP and will stop this med. defer to primary service to taper steroids -IVF as above -given her thick cough (on baseline 02 needs, though pt reportedly stated the 2LNC had been stopped by OP physician) and that she is 8.2L positive, will recheck CXR Present on Admission?: Yes Admission and Anticipated Discharge Date Admission Date: September 03, 2020 Subjective seen on rounds at 0940; pt states she feels quite poorly today d/t "kidney pain" and that diarrhea continues; also w/ N and has not [facility] Review of Systems Review of Systems: All systems reviewed & are unremarkable except as noted in HPI & below Musculoskeletal: nonradiating L flank pain Physical Exam Constitutional: well developed, well nourished and cooperative mild distress lying on R side on 02nc Eyes: EOM intact bilaterally ENMT: Ears: no external ear abnormality Nose: no external nose abnormality Mouth: + dry oral mucous membranes Neck: no nuchal rigidity Respiratory: normal respiratory effort, + cough (thick nonproducitve oc casional) and able to speak in complete sentences; no respiratory distress Auscultation: lungs clear to auscultation bilaterally and + diminished lung sounds Cardiovascular: Rate/Rhythm: regular rate and regular rhythm Extremities: no edema Gastrointestinal (Abdomen): Inspection/Auscultation: normal bowel sounds Percussion/Palpation: abdomen soft; abdomen nontender Musculoskeletal: Extremities: + abnormal strength (generalized weakness) L flank TTP near spine; remote open flank surgery scar Skin: no rashes, warm and dry Neurologic: gomez, limited speech, +tremor Psychiatric: A+Ox3, euthymic affect Genitourinary: hernandez w/ scant urine Results & Data ([facility]) Vital Signs (Past 12 Hours) Vital Signs Temp Pulse Pulse Pulse Resp BP BP 09/07/20 08:17 60 09/07/20 08:00 36.7 C 89 20 147/93 H 09/07/20 04:21 36.4 C L 62 18 136/87 09/07/20 00:00 73 09/06/20 23:27 36.8 C 62 18 144/84 H Pulse Ox 09/07/20 08:17 09/07/20 08:00 99 09/07/20 04:21 94 09/07/20 00:00 09/06/20 23:27 96 Laboratory Results 09/07/20 07:58 09/07/20 07:[address] abd/pelvis 09/03 non con 1. Postsurgical changes of a subtotal colectomy with ileosigmoid anastomosis 2. No evidence of bowel obstruction. No evidence of free air 3. Moderate hiatal hernia 4. Bilateral nephrolithiasis. Persistent small staghorn calculus within a mildly dilated left renal pelvis. Persistent mild uroepithelial thickening on the left. 5. Bilateral renal cysts including a 8.5 cm upper pole left renal cyst 6. Surgically absent gallbladder and uterus. cxr 09/04 1. Status post placement of a left IJ hemodialysis catheter, distal tip terminating near the inferior aspect of the SVC/superior cavoatrial junction. 2. No postprocedural pneumothorax. 3. Decreased pulmonary vascular congestion.
--- NOTE | 2020-09-07 11:47 | XRay Report ---
SINGLE VIEW CHEST CLINICAL HISTORY: Cough. FINDINGS: An AP, portable, upright chest radiograph is compared to study dated 09/04/2020. Bilateral internal jugular central venous catheters are unchanged in position. The heart is top normal for proj ection. The pulmonary vasculature is noncongested. There is airspace consolidation in the right mid t o lower lung and a small right pleural effusion. This is new from 09/04/2020. Atelectasis is noted at the left lung base. No pneumothorax is seen. The skeletal structures are osteopenic. The bony thorax is grossly intact. IMPRESSION: There is airspace consolidation in the right mid to lower lung and a small right pleural effusion. This is new from 09/04/2020. Correlate clinically for evidence of pneumonia/aspiration pneu monitis. Radiographic follow-up to resolution is recommended. ACT 112: Negative or not required by law. Electronically signed by: Caesar Yoon M.D. 09/07/2020 11:46 AM
[2020-09-07] MEDS ORDERED: cefTRIAXone SODIUM 1,000 MG in DEXTROSE 5% 50 ML IV SCH (12:00)
[2020-09-07] MEDS: SODIUM CHLORIDE 0.45 % 1,000 ML IV SCH (12:13)
[2020-09-07] MEDS: SUCRALFATE 1 GM/10 ML UDC PO SCH ×3 (12:43→20:13)
--- NOTE | 2020-09-07 13:01 | Hospitalist Progress Note ---
Date of Service September 07, 2020 Assessment & Plan (1) Acute hypotension: This is a 64yo F with a PMH of DM II, dyslipidemia, CALI, asthma/COPD, bronchiectasis, HTN, CKD III who presents to the ED with worsening weakness and recurrent falls and was found to have acute hypotension and acute renal failure as well as complicated UTI. -Likely secondary to prolonged diarrhea and may be complicated by UTI with sepsis - In setting of acute renal failure and significant dehydration from very little PO fluid intake at home. - Patient is A&Ox4. Continue IV fluids with transition to bicarb drip. Holding lisinopril and Toprol -Was transferred to ICU as she required intravenous pressor to maintain blood pressure -Appreciate technical trainer input and recommendation -Blood pressure seems to be improving -Blood pressure has been going up -We will need to restart her oral medications -Hydrocortisone will be discontinued after tomorrow's dose Possible sepsis has been ruled out Thought to be due to UTI Urine culture is growing yeast Blood cultures have been negative She has been on cefepime which will be discontinued after 3 days No evidence of UTI and blood cultures have been negative Antibiotic has been discontinued Chronic diarrhea She has been complaining of loose stools 4 or 5 times daily for the last few weeks We will send stool for C. difficile and also culture Stool has been negative for any C. difficile toxin Extreme anxiety with increased shakiness since this morning Also complaining of abdominal discomfort and nausea Was given Phenergan, Maalox and Ativan as needed Remains anxious Ongoing epigastric discomfort with nausea Has been on PPI intravenously twice daily and getting Maalox as needed We will add oral sucralfate and change Protonix to oral twice daily (2) Acute renal failure: Creatinine significantly elevated at 6.25 (1.48 during admission last week) with hyperkalemia of 5.7. Bicarb 19 -Significant dehydration secondary to prolonged diarrhea with significant metabolic acidosis -Doubt any obstructive uropathy -Received 2 L bolus in ED, transitioning to bicarb drip -Given calcium gluconate for hyperkalemia. Giving 1/2 ampule of D50 prior to administration of IV insulin due to hypoglycemia -Appreciate nephrology input and recommendation -Has had dialysis -Creatinine has been improving and going to worse her baseline -We will continue current medications -No more hemodialysis needed and the dialysis catheter has been discontinued Severe metabolic acidosis on admission Required intravenous bicarb drip Hypokalemia and CO2 level has been up as of this morning Bicarb drip has been stopped Received hemodialysis Metabolic acidosis seems to be corrected (3) Recurrent falls: (4) Weakness: Has had multiple falls of the same nature over the past few months and was admitted with similar symptoms last month -Poor PO intake at home, renal failure, deconditioning -IV fluid resuscitation, fall precautions, PT/OT evaluation, discharge planning Will start PT and OT evaluation (5) Complicated UTI (urinary tract infection): -Nephrolithiasis with staghorn calculus in left pelvis -Possible sepsis secondary to UTI has been ruled out -Abnormal UA with urine, blood cultures pending. Continue empiric Rocephin and IV fluids -CT abd/pelvis with bilateral nephrolithiasis. Persistent small staghorn calculus within a mildly dilated left renal pelvis -Discussed findings with urology, who do not feel procedure is indicated since no strone is obstructing -Doubt any obstructive uropathy -Appreciate urology input and recommendation -Started on intravenous Rocephin and then changed to IV cefepime and daptomycin -Daptomycin has been discontinued by the technical trainer -Urine culture has been growing yeast and blood cultures are negative -We will discontinue intravenous antibiotic after 3 days Nephrolithiasis Has been complaining of abdominal pain Has allergy to morphine and Dilpetra Reviewed the medical records and she got oxycodone and let 2019 Will try oral oxycodone to control pain Pain seems to be reasonably controlled (6) Depression: Appears depressed on exam with flattened affect, poor appetite. Continue duloxetine (7) DM type 2 (diabetes mellitus, type 2): -Hold home agents -SSI while in-patient -BSG AC HS -Glycemic pharmacist consulted (8) Obesity hypoventilation syndrome: Also has CALI -CPAP intolerant. Monitor for hypoxia DVT Ppx: SQ heparin Code status: FULL PCP: Mannie Dispo: Admit to PCU. Discharge planning ordered. Admission and Anticipated Discharge Date Admission Date: September 03, 2020 Subjective 09/04/2020 The patient was seen and examined in ICU He was transferred to ICU from PCU due to continued hypotension and requiring intravenous pressors and She remains generally very weak and lethargic and has been checking with severe anxiety Denies any shortness of breath, chest pain or palpitation No abdominal pain, nausea and or vomiting 09/05/2020 The patient was seen and examined in ICU She has been feeling a lot better today but complains today of some epigastric discomfort with nausea and occasional vomiting No distention of the abdomen Denies any fever and/or chills, denies any shortness of breath 09/06/2020 The patient was seen and examined in telemetry unit She has been complaining of nausea, back pain and not been feeling well She has not been eating or drinking and has been taking her oral medications Denies any fever and/or chills 09/07/2020 The patient was seen and examined in telemetry unit She has been complaining of nonspecific symptoms involving weakness, back pain, nausea and not been taking her oral medications No shortness of breath at rest and no fever and no chills Review of Systems Review of Systems: All systems reviewed and are unremarkable except as noted below Constitutional: + fatigue and + weakness; no chills Neurologic: + generalized weakness Physical Exam Physical Exam: Lying in bed with some distress due to anxiety and ongoing shaking Constitutional: well developed, well nourished, + acute distress (Due to epigastric/abdominal pain and nausea), + ill appearing and + obese Eyes: PERRL, conjunctivae normal, anicteric sclerae ENMT: external ear and nose normal, oropharynx normal Neck: trachea midline, no thyromegaly Has central line placed on right side and hemodialysis catheter on the left side of the neck Respiratory: no respiratory distress (Minimal at rest) Auscultation: lungs clear to auscultation bilaterally and + diminished lung sounds Cardiovascular: Rate/Rhythm: regular rate and regular rhythm Heart Sounds: no murmur Extremities: + edema (Trace edema bilaterally) Gastrointestinal (Abdomen): Inspection/Auscultation: normal bowel sounds; abdomen not distended Percussion/Palpation: + abdomen tender (Mildly tender epigastrium) and abdomen soft Musculoskeletal: No acute arthritis in any joint Psychiatric: Affect: + anxious affect Mood: + anxious mood and + irritable mood Lymphatic: no cervical or axillary lymphadenopathy Results & Data Results & Data ([facility]) Vital Signs (Past 12 Hours) Vital Signs Temp Pulse Pulse Pulse Resp BP BP 09/07/20 11:08 36.8 C 63 18 143/82 H 09/07/20 08:17 60 09/07/20 08:00 36.7 C 89 20 147/93 H 11/29/20 04:21 36.4 C L 62 18 136/87 Pulse Ox 09/07/20 11:08 97 09/07/20 08:17 09/07/20 08:00 99 09/07/20 04:21 94 Laboratory Results Short CBC 09/07/20 Range/Units 07:58 WBC 7.20 (4.8-10.8) K/uL Hgb 10.0 L (12.0-16.0) g/dL Hct 33.7 L (37-47) % Plt Count 220 (130-400) K/uL BMP 09/07/20 07:58 Sodium 146 H Potassium 3.7 Chloride 108 H Carbon Dioxide 31 BUN 16 D Creatinine 1.64 H Glucose 107 H Calcium 9.1 Liver Function 09/07/20 Range/Units 07:58 Total Bilirubin 0.4 (0.2-1) mg/dl AST 20 (15-37) U/L ALT 19 (12-78) U/L Alkaline Phosphatase 115 (45-117) U/L Albumin 3.0 L (3.4-5.0) gm/dl Medications Administered Current Inpatient Medications Acetaminophen (Acetaminophen 325 Mg Tab) 650 mg PO Q4H PRN PRN Reason: Pain or Fever Stop: 10/03/20 20:44 Last Admin: 09/04/20 16:51 Dose: 650 mg Documented by: Al Hydrox/Mg Hydrox/Simethicone (Aluminum/Magnesium Susp 30 Ml Udc) 30 ml PO Q6H PRN PRN Reason: Dyspepsia Stop: 10/06/20 15:46 Last Admin: 09/06/20 16:10 Dose: 30 ml Documented by: Albuterol (Albuterol Hfa 8 Gm Inhaler) 2 puffs INH Q4H PRN PRN Reason: Shortness Of Breath Stop: 10/03/20 20:31 Albuterol (Albut/Ipratrop 3mg/0.5mg Neb 3 Ml Vial) 3 ml NEB Q4R PRN PRN Reason: Shortness Of Breath Or Wheezing Stop: 10/04/20 03:26 Clopidogrel Bisulfate (Clopidogrel Bisulfate 75 Mg Tab) 75 mg PO QPM MARLA Stop: 10/03/20 20:59 Last Admin: 09/07/20 01:29 Dose: Not Given Documented by: Dextrose (Dextrose 50% 50 Ml Syringe) 25 - 50 ml IV UD PRN; Protocol PRN Reason: Hypoglycemia Protocol Stop: 10/03/20 20:44 Doxepin HCl (Doxepin Hcl 50 Mg Capsule) 100 mg PO HS [facility] [place] Stop: 10/04/20 20:59 Last Admin: 09/07/20 01:29 Dose: Not Given Documented by: Duloxetine HCl (Duloxetine Hcl 60 Mg Cap) 60 mg PO QAM MARLA Stop: 10/04/20 08:59 Last Admin: 09/07/20 09:21 Dose: Not Given Documented by: Ferrous Sulfate (Ferrous Sulfate 325 Mg Tab) 325 mg PO BID MARLA Stop: 10/04/20 08:59 Last Admin: 09/07/20 09:21 Dose: Not Given Documented by: Glucagon (Glucagon For Inj 1 Mg Vial) 1 mg SQ UD PRN; Protocol PRN Reason: Hypoglycemia Protocol Stop: 10/03/20 20:44 Glucose (Glucose 10 Tabs/Tube) 4 - 8 tabs PO UD PRN; Protocol PRN Reason: Hypoglycemia Protocol Stop: 10/03/20 20:44 Glucose (Glucose 40% Gel 15 Gm Tube) 15 - 30 gm PO UD PRN; Protocol PRN Reason: Hypoglycemia Protocol Stop: 10/03/20 20:44 Heparin Sodium (Beef Lung) (Heparin 10 Unit/Ml 5 Ml Flush) 5 ml FLUSH PRN PRN PRN Reason: Flush Stop: 10/04/20 23:52 Heparin Sodium (Porcine) (Heparin Sod 5,000 Unit/0.5 Ml Vial) 5,000 units SQ Q12 MARLA Stop: 10/05/20 20:59 Last Admin: 09/07/20 09:06 Dose: 5,000 units Documented by: Pantoprazole Sodium 40 mg/ (Syringe) 10 mls @ 5 mls/min IV BID MARLA Stop: 10/05/20 08:59 Last Admin: 09/07/20 09:05 Dose: 5 mls/min Documented by: Promethazine HCl 12.5 mg/ (Sodium Chloride) 50.5 mls @ 202 mls/hr IV Q6H PRN PRN Reason: Nausea And Vomiting Stop: 10/06/20 15:46 Last Infusion: 09/06/20 16:39 Dose: Infused Documented by: Lorazepam (Ativan) 0.25 mg in 0.5 mls @ 0.5 mls/min IV Q4H PRN PRN Reason: Agitation Stop: 10/06/20 15:46 Last Admin: 09/06/20 20:38 Dose: 0.5 mls/min Documented by: Sodium Chloride (1/2 Nss) 1,000 mls @ 50 mls/hr IV .Q20H MARLA Stop: 10/07/20 11:14 Last Admin: 09/07/20 12:13 Dose: 50 mls/hr Documented by: Hydrocortisone Sodium (Succinate 50 mg/ Syringe) 1 mls @ 4 mls/min IV DAILY [facility] Stop: 10/08/20 08:59 Insulin Aspart (Insulin Aspart 100 Units/Ml 3 Ml Pen) 0 units SC ACHS MARLA Stop: 10/04/20 16:29 Last Admin: 09/07/20 11:39 Dose: Not Given Documented by: Lidocaine (Lidocaine 5% 1 Patch) 1 patch TD DAILY [facility] [place] Stop: 10/04/20 08:59 Last Admin: 09/07/20 09:06 Dose: 1 patch Documented by: Magnesium Oxide (Magnesium Oxide 400 Mg Tab) 400 mg PO HS [facility] [place] Stop: 10/03/20 20:59 Last Admin: 09/07/20 01:29 Dose: Not Given Documented by: Miscellaneous (Remove Lidoderm Patch) 1 ea N/A DAILY@2100 [facility] [place] Stop: 10/03/20 20:59 Last Admin: 09/07/20 01:29 Dose: Not Given Documented by: Miscellaneous (Carbohydrates For Hypoglycemia ) 15 - 30 gm PO UD PRN PRN Reason: Hypoglycemia Protocol Stop: 10/03/20 20:44 Ondansetron HCl (Ondansetron Inj 2 Mg/Ml 2 Ml Vial) 4 mg IV Q6H PRN PRN Reason: Nausea Stop: 10/04/20 22:35 Last Admin: 09/07/20 09:17 Dose: 4 mg Documented by: Oxcarbazepine (Oxcarbazepine 150 Mg Tablet) 300 mg PO BID [facility] [place]; Protocol Stop: 10/06/20 20:59 Last Admin: 09/07/20 09:05 Dose: 300 mg Documented by: Oxycodone HCl (Oxycodone Hcl Ir 5 Mg Tab (Immediate Release)) 10 mg PO Q4H PRN PRN Reason: Pain Stop: 09/20/20 16:38 Last Admin: 09/07/20 09:16 Dose: 10 mg Documented by: Saccharomyces Boulardii (Saccharomyces Boulardii 250 Mg Cap) 250 mg PO BID [facility] [place] Stop: 10/03/20 20:59 Last Admin: 09/07/20 09:21 Dose: Not Given Documented by: Sucralfate (Sucralfate 1 Gm/10 Ml Udc) 1 gm PO QID [facility] [place] Stop: 10/07/20 12:59 Last Admin: 09/07/20 12:43 Dose: 1 gm Documented by: Vitamin D (Cholecalciferol 1,000 Units 25 Mcg Tab) 2,000 units PO QAM [facility] [place] Stop: 10/04/20 08:59 Last Admin: 09/07/20 09:22 Dose: Not Given Documented by:
[2020-09-08] MEDS: ONDANSETRON INJ 2 MG/ML 2 ML VIAL IV PRN (06:23)
[2020-09-08] MEDS: oxyCODONE HCL IR 5 MG TAB (IMMEDIATE RELEASE) PO PRN ×4 (06:23→21:57)
[2020-09-08 08:05] LABS: Basophils # (auto) 0.01 K/uL (0-0.2); Basophils % (auto) 0.2 %; Eosinophils # (auto) 0.19 K/uL (0-0.5); Eosinophils % (auto) 3.4 %; Hematocrit (blood only) 30.9 % (37-47); Hemoglobin 8.9 g/dL (12.0-16.0); Immature Granulocytes # (auto) 0.02 K/uL (0.00-0.02); Immature Granulocytes % (auto) 0.4 %; Lymphocytes # (auto) 1.26 K/uL (1.2-3.4); Lymphocytes % (auto) 22.3 %; Mean Corpuscular Hemoglobin 29.5 pg (25-34); Mean Corpuscular Hgb Conc 28.8 g/dL (32-36); Mean Corpuscular Volume 102.3 fL (80-100); Mean Platelet Volume 11.3 fL (7.4-10.4); Monocytes # (auto) 0.59 K/uL (0.11-0.59); Monocytes % (auto) 10.4 %; Neutrophils # (auto) 3.58 K/uL (1.4-6.5); Neutrophils % (auto) 63.3 %; Platelet Count 167 K/uL (130-400); RDW Coefficient of Variation 13.5 % (11.5-14.5); RDW Standard Deviation 50.5 fL (36.4-46.3); Red Blood Count 3.02 M/uL (4.2-5.4); White Blood Count 5.65 K/uL (4.8-10.8)
[2020-09-08 08:23] LABS: BUN Creatinine Ratio 14.3 (10-20); Calcium 8.4 mg/dl (8.5-10.1); Creatinine Clr Calc Pharmacy 43.2 ml/min; Est GFR (African American) 48.6; Est GFR (Non-African American) 41.9; Potassium 3.2 mmol/L (3.5-5.1)
[2020-09-08] MEDS ORDERED: POTASSIUM CHLORIDE CRTAB 20 MEQ TABCR PO STA (08:25)
[2020-09-08] MEDS: PANTOprazole 40 MG in SYRINGE 0 ML IV SCH (08:56)
[2020-09-08] MEDS: HYDROCORTISONE SOD 50 MG in SYRINGE 0 ML IV SCH (08:56)
[2020-09-08] MEDS: SUCRALFATE 1 GM/10 ML UDC PO SCH ×4 (08:58→21:57)
[2020-09-08] MEDS: SODIUM CHLORIDE 0.45 % 1,000 ML IV SCH (08:58)
[2020-09-08] MEDS: LIDOCAINE 5% 1 PATCH TD SCH (08:59)
[2020-09-08] MEDS: CHOLECALCIFEROL 1,000 UNITS 25 MCG TAB PO SCH (09:00)
[2020-09-08] MEDS: FERROUS SULFATE 325 MG TAB PO SCH ×2 (09:00→22:00)
[2020-09-08] MEDS: HEPARIN SOD 5,000 UNIT/0.5 ML VIAL SQ SCH ×2 (09:01→22:03)
[2020-09-08] MEDS: SACCHAROMYCES BOULARDII 250 MG CAP PO SCH ×2 (09:02→22:02)
[2020-09-08] MEDS: DULoxetine HCL 60 MG CAP PO SCH (09:02)
[2020-09-08] MEDS: OXcarbazepine 150 MG TABLET PO SCH ×2 (09:02→22:04)
[2020-09-08] MEDS: INSULIN ASPART 100 UNITS/ML 3 ML PEN SC SCH ×4 (09:03→22:03)
--- NOTE | 2020-09-08 13:07 | Hospitalist Progress Note ---
Date of Service September 08, 2020 Assessment & Plan (1) Acute hypotension: This is a 64yo F with a PMH of DM II, dyslipidemia, CALI, asthma/COPD, bronchiectasis, HTN, CKD III who presents to the ED with worsening weakness and recurrent falls and was found to have acute hypotension and acute renal failure as well as complicated UTI. -Likely secondary to prolonged diarrhea and may be complicated by UTI with sepsis - In setting of acute renal failure and significant dehydration from very little PO fluid intake at home. - Patient is A&Ox4. Continue IV fluids with transition to bicarb drip. Holding lisinopril and Toprol -Was transferred to ICU as she required intravenous pressor to maintain blood pressure -Appreciate instructor robotics input and recommendation -Blood pressure seems to be improving -Blood pressure has been going up -We will need to restart her oral medications -Hydrocortisone will be discontinued after tomorrow's dose -DC hydrocortisone Possible sepsis has been ruled out Thought to be due to UTI Urine culture is growing yeast Blood cultures have been negative She has been on cefepime which will be discontinued after 3 days No evidence of UTI and blood cultures have been negative Antibiotic has been discontinued Chronic diarrhea She has been complaining of loose stools 4 or 5 times daily for the last few weeks We will send stool for C. difficile and also culture Stool has been negative for any C. difficile toxin Diarrhea seems to be improved Extreme anxiety with increased shakiness since this morning Also complaining of abdominal discomfort and nausea Was given Phenergan, Maalox and Ativan as needed Remains anxious Ongoing epigastric discomfort with nausea Has been on PPI intravenously twice daily and getting Maalox as needed We will add oral sucralfate and change Protonix to oral twice daily Her abdominal symptoms are better IV Protonix has been changed to p.o. twice daily (2) Acute renal failure: Creatinine significantly elevated at 6.25 (1.48 during admission last week) with hyperkalemia of 5.7. Bicarb 19 -Significant dehydration secondary to prolonged diarrhea with significant metabolic acidosis -Doubt any obstructive uropathy -Received 2 L bolus in ED, transitioning to bicarb drip -Given calcium gluconate for hyperkalemia. Giving 1/2 ampule of D50 prior to administration of IV insulin due to hypoglycemia -Appreciate nephrology input and recommendation -Has had dialysis -Creatinine has been improving and going to worse her baseline -We will continue current medications -No more hemodialysis needed and the dialysis catheter has been discontinued -Creatinine is minimally high today and the diuretic doses have been adjusted accordingly by net software architect Severe metabolic acidosis on admission Required intravenous bicarb drip Hypokalemia and CO2 level has been up as of this morning Bicarb drip has been stopped Received hemodialysis Metabolic acidosis seems to be corrected (3) Recurrent falls: (4) Weakness: Has had multiple falls of the same nature over the past few months and was admitted with similar symptoms last month -Poor PO intake at home, renal failure, deconditioning -IV fluid resuscitation, fall precautions, PT/OT evaluation, discharge planning Will start PT and OT evaluation (5) Complicated UTI (urinary tract infection): -Nephrolithiasis with staghorn calculus in left pelvis -Possible sepsis secondary to UTI has been ruled out -Abnormal UA with urine, blood cultures pending. Continue empiric Rocephin and IV fluids -CT abd/pelvis with bilateral nephrolithiasis. Persistent small staghorn calculus within a mildly dilated left renal pelvis -Discussed findings with urology, who do not feel procedure is indicated since no strone is obstructing -Doubt any obstructive uropathy -Appreciate urology input and recommendation -Started on intravenous Rocephin and then changed to IV cefepime and daptomycin -Daptomycin has been discontinued by the instructor robotics -Urine culture has been growing yeast and blood cultures are negative -We will discontinue intravenous antibiotic after 3 days Nephrolithiasis Has been complaining of abdominal pain Has allergy to morphine and Dilaudid Reviewed the medical records and she got oxycodone and let 2018 Will try oral oxycodone to control pain Pain seems to be reasonably controlled with oral oxycodone (6) Depression: Appears depressed on exam with flattened affect, poor appetite. Continue duloxetine (7) DM type 2 (diabetes mellitus, type 2): -Hold home agents -SSI while in-patient -BSG AC HS -Glycemic pharmacist consulted (8) Obesity hypoventilation syndrome: Also has CALI -CPAP intolerant. Monitor for hypoxia DVT Ppx: SQ heparin Code status: FULL PCP: Mannie Dispo: Admit to PCU. Discharge planning ordered. Admission and Anticipated Discharge Date Admission Date: September 03, 2020 Subjective 09/04/2020 The patient was seen and examined in ICU He was transferred to ICU from PCU due to continued hypotension and requiring intravenous pressors and She remains generally very weak and lethargic and has been checking with severe anxiety Denies any shortness of breath, chest pain or palpitation No abdominal pain, nausea and or vomiting 09/05/2020 The patient was seen and examined in ICU She has been feeling a lot better today but complains today of some epigastric discomfort with nausea and occasional vomiting No distention of the abdomen Denies any fever and/or chills, denies any shortness of breath 09/06/2020 The patient was seen and examined in telemetry unit She has been complaining of nausea, back pain and not been feeling well She has not been eating or drinking and has been taking her oral medications Denies any fever and/or chills 09/07/2020 The patient was seen and examined in telemetry unit She has been complaining of nonspecific symptoms involving weakness, back pain, nausea and not been taking her oral medications No shortness of breath at rest and no fever and no chills 09/08/2020 The patient was seen and examined in telemetry unit He has been feeling much better today Denies any epigastric pain but still has discomfort and feels nauseous without any vomiting Pain seems to be under control but remains very anxious Denies any fever and/or chills Review of Systems Review of Systems: All systems reviewed and are unremarkable except as noted below Constitutional: + fatigue and + weakness; no chills Neurologic: + generalized weakness Physical Exam Physical Exam: Lying in bed with some distress due to anxiety and ongoing shaking Constitutional: well developed, well nourished, + acute distress (Due to epigastric/abdominal pain and nausea), + ill appearing and + obese Eyes: PERRL, conjunctivae normal, anicteric sclerae ENMT: external ear and nose normal, oropharynx normal Neck: trachea midline, no thyromegaly Respiratory: no respiratory distress (Minimal at rest) Auscultation: lungs clear to auscultation bilaterally and + diminished lung sounds Cardiovascular: Rate/Rhythm: regular rate and regular rhythm Heart Sounds: no murmur Extremities: + edema (Trace edema bilaterally) Gastrointestinal (Abdomen): Inspection/Auscultation: normal bowel sounds; abdomen not distended Percussion/Palpation: + abdomen tender (Mildly tender epigastrium and is improving) and abdomen soft Musculoskeletal: No acute arthritis in any joint Psychiatric: Affect: + anxious affect Mood: + anxious mood and + irritable mood Lymphatic: no cervical or axillary lymphadenopathy Results & Data Results & Data ([facility]) Vital Signs (Past 12 Hours) Vital Signs Temp Pulse Pulse Pulse Resp BP Pulse Ox 09/08/20 11:37 36.6 C 62 18 145/88 H 97 09/08/20 10:29 58 L 09/08/20 07:50 36.5 C 61 18 118/77 97 09/08/20 03:49 36.3 C L 57 L 18 109/72 98 Laboratory Results Short CBC 09/08/20 Range/Units 07:14 WBC 5.65 (4.8-10.8) K/uL Hgb 8.9 L (12.0-16.0) g/dL Hct 30.9 L (37-47) % Plt Count 167 (130-400) K/uL BMP 09/08/20 07:14 Sodium 145 Potassium 3.2 L Chloride 107 Carbon Dioxide 33 H BUN 19 H Creatinine 1.32 H D Glucose 80 Calcium 8.4 L Medications Administered Current Inpatient Medications Acetaminophen (Acetaminophen 325 Mg Tab) 650 mg PO Q4H PRN PRN Reason: Pain or Fever Stop: 10/03/20 20:44 Last Admin: 09/04/20 16:51 Dose: 650 mg Documented by: Al Hydrox/Mg Hydrox/Simethicone (Aluminum/Magnesium Susp 30 Ml Udc) 30 ml PO Q6H PRN PRN Reason: Dyspepsia Stop: 10/06/20 15:46 Last Admin: 09/06/20 16:10 Dose: 30 ml Documented by: Albuterol (Albuterol Hfa 8 Gm Inhaler) 2 puffs INH Q4H PRN PRN Reason: Shortness Of Breath Stop: 10/03/20 20:31 Albuterol (Albut/Ipratrop 3mg/0.5mg Neb 3 Ml Vial) 3 ml NEB Q4R PRN PRN Reason: Shortness Of Breath Or Wheezing Stop: 10/04/20 03:26 Clopidogrel Bisulfate (Clopidogrel Bisulfate 75 Mg Tab) 75 mg PO QPM MARLA Stop: 10/03/20 20:59 Last Admin: 09/07/20 20:13 Dose: Not Given Documented by: Dextrose (Dextrose 50% 50 Ml Syringe) 25 - 50 ml IV UD PRN; Protocol PRN Reason: Hypoglycemia Protocol Stop: 10/03/20 20:44 Doxepin HCl (Doxepin Hcl 50 Mg Capsule) 100 mg PO HS MARLA Stop: 10/04/20 20:59 Last Admin: 09/07/20 20:14 Dose: Not Given Documented by: Duloxetine HCl (Duloxetine Hcl 60 Mg Cap) 60 mg PO QAM MARLA Stop: 10/04/20 08:59 Last Admin: 09/08/20 09:02 Dose: 60 mg Documented by: Ferrous Sulfate (Ferrous Sulfate 325 Mg Tab) 325 mg PO BID MARLA Stop: 10/04/20 08:59 Last Admin: 09/08/20 09:00 Dose: 325 mg Documented by: Glucagon (Glucagon For Inj 1 Mg Vial) 1 mg SQ UD PRN; Protocol PRN Reason: Hypoglycemia Protocol Stop: 10/03/20 20:44 Glucose (Glucose 10 Tabs/Tube) 4 - 8 tabs PO UD PRN; Protocol PRN Reason: Hypoglycemia Protocol Stop: 10/03/20 20:44 Glucose (Glucose 40% Gel 15 Gm Tube) 15 - 30 gm PO UD PRN; Protocol PRN Reason: Hypoglycemia Protocol Stop: 10/03/20 20:44 Heparin Sodium (Beef Lung) (Heparin 10 Unit/Ml 5 Ml Flush) 5 ml FLUSH PRN PRN PRN Reason: Flush Stop: 10/04/20 23:52 Heparin Sodium (Porcine) (Heparin Sod 5,000 Unit/0.5 Ml Vial) 5,000 units SQ Q12 MARLA Stop: 10/05/20 20:59 Last Admin: 09/08/20 09:01 Dose: 5,000 units Documented by: Promethazine HCl 12.5 mg/ (Sodium Chloride) 50.5 mls @ 202 mls/hr IV Q6H PRN PRN Reason: Nausea And Vomiting Stop: 10/06/20 15:46 Last Infusion: 09/06/20 16:39 Dose: Infused Documented by: Lorazepam (Ativan) 0.25 mg in 0.5 mls @ 0.5 mls/min IV Q4H PRN PRN Reason: Agitation Stop: 10/06/20 15:46 Last Admin: 09/06/20 20:38 Dose: 0.5 mls/min Documented by: Hydrocortisone Sodium (Succinate 50 mg/ Syringe) 1 mls @ 4 mls/min IV DAILY MARLA Stop: 10/08/20 08:59 Last Admin: 09/08/20 08:56 Dose: 4 mls/min Documented by: Insulin Aspart (Insulin Aspart 100 Units/Ml 3 Ml Pen) 0 units SC ACHS MARLA Stop: 10/04/20 16:29 Last Admin: 09/08/20 12:23 Dose: Not Given Documented by: Lidocaine (Lidocaine 5% 1 Patch) 1 patch TD DAILY MARLA Stop: 10/04/20 08:59 Last Admin: 09/08/20 08:59 Dose: 1 patch Documented by: Magnesium Oxide (Magnesium Oxide 400 Mg Tab) 400 mg PO HS MARLA Stop: 10/03/20 20:59 Last Admin: 09/07/20 20:13 Dose: Not Given Documented by: Miscellaneous (Remove Lidoderm Patch) 1 ea N/A DAILY@2100 [facility] Stop: 10/03/20 20:59 Last Admin: 09/07/20 20:14 Dose: 1 ea Documented by: Miscellaneous (Carbohydrates For Hypoglycemia ) 15 - 30 gm PO UD PRN PRN Reason: Hypoglycemia Protocol Stop: 10/03/20 20:44 Ondansetron HCl (Ondansetron Inj 2 Mg/Ml 2 Ml Vial) 4 mg IV Q6H PRN PRN Reason: Nausea Stop: 10/04/20 22:35 Last Admin: 09/08/20 06:23 Dose: 4 mg Documented by: Oxcarbazepine (Oxcarbazepine 150 Mg Tablet) 300 mg PO BID [facility]; Protocol Stop: 10/06/20 20:59 Last Admin: 09/08/20 09:02 Dose: 300 mg Documented by: Oxycodone HCl (Oxycodone Hcl Ir 5 Mg Tab (Immediate Release)) 10 mg PO Q4H PRN PRN Reason: Pain Stop: 09/20/20 16:38 Last Admin: 09/08/20 12:24 Dose: 10 mg Documented by: Pantoprazole Sodium (Pantoprazole 40 Mg Tab) 40 mg PO BID [facility] Stop: 10/08/20 20:59 Saccharomyces Boulardii (Saccharomyces Boulardii 250 Mg Cap) 250 mg PO BID MARLA Stop: 10/03/20 20:59 Last Admin: 09/08/20 09:02 Dose: 250 mg Documented by: Sucralfate (Sucralfate 1 Gm/10 Ml Udc) 1 gm PO QID [facility] Stop: 10/07/20 12:59 Last Admin: 09/08/20 12:24 Dose: 1 gm Documented by: Vitamin D (Cholecalciferol 1,000 Units 25 Mcg Tab) 2,000 units PO QAM [facility] Stop: 10/04/20 08:59 Last Admin: 09/08/20 09:00 Dose: 2,000 units Documented by:
--- NOTE | 2020-09-08 19:28 | Nephrology Progress Note ---
Date of Service September 08, 2020 Assessment & Plan (1) CKD (chronic kidney disease), stage III: Patient admitted with PERRI on CKD3 >> Baseline creatinine of 1.5 and admission creatinine of 6.2 from Nonliguric ischemic ATN in setting of profound hypotension and metabolic acidosis; sepsis was ruled out. Given profound acidosis, oliguria and shock, she had two txs of dialysis on 09/04 & . creatinine at baseline past 48 hrs. -no further HD needed ->> dialysis catheter out now -daily bmp -had gentle IVF; done now and no further IVF needed (2) Flank pain with history of urolithiasis: pt with known staghorn calculus L and BL nephrolithiasis; also with hx chronic intermittent flank pain and recurrent UTI as OP; urology saw her at admission and day after > no intervention needed. yesterday w/ R sided pain and basically stable renal function and hgb -CXR shows ? if pain from pl effusion -renal u/s if pain recurs and/or worsening renal function -continue pain patch, reassurance -no further ivf needed (3) Disorders of fluid, electrolyte, and acid-base balance: Patient with severe metabolic acidosis likely due to ATN on presentation; also significant diarrhea on presentation. pH was 7.14. normalized after 2 rds dialysis. -as above/no further dialysis needed >>>today w/ improved/resolved hypernatremia, hyperchloremia and improved creatinine >> dehydration improved >>had 40 mEQ x 1 po K >>primary service tapering steroids -today no obvious cough thick cough (but still on baseline 02 needs, though pt reportedly stated the 2LNC had been stopped by OP physician) >> defer to primary service to f/u CXR findings Admission and Anticipated Discharge Date Admission Date: September 03, 2020 Subjective seen on rounds this am at 0750; care coordinated w/ Dr Modi approx 0800; o ngoing n/ diarrhea but feeling a bit better this am. no worsening sob; no voiding concerns; does not mention flank pain today Review of Systems Review of Systems: All systems reviewed & are unremarkable except as noted in HPI & below Physical Exam Constitutional: well developed, well nourished and cooperative; no acute distress Eyes: EOM intact bilaterally ENMT: Ears: no external ear abnormality Nose: no external nose abnormality Mouth: + dry oral mucous membranes Neck: no nuchal rigidity Respiratory: normal respiratory effort and able to speak in complete sentences; no respiratory distress and no cough (today no cough) Auscultation: lungs clear to auscultation bilaterally and + diminished lung sounds Cardiovascular: Rate/Rhythm: regular rate and regular rhythm Extremities: no edema Gastrointestinal (Abdomen): Inspection/Auscultation: normal bowel sounds Percussion/Palpation: abdomen soft; abdomen nontender Musculoskeletal: Extremities: + abnormal strength (generalized weakness) Skin: no rashes, warm and dry Neurologic: gomez, fluent speech Psychiatric: Orientation: alert and oriented x 3 Speech: normal rate/rhythm/volume of speech Affect: + anxious affect (but calmer today) Results & Data ([facility]) Vital Signs (Past 12 Hours) Vital Signs Temp Pulse Pulse Resp BP Pulse Ox 09/08/20 15:42 37.0 C 77 18 134/69 96 09/08/20 15:14 61 09/08/20 11:37 36.6 C 62 18 145/88 H 97 09/08/20 10:29 58 L 09/08/20 07:50 36.5 C 61 18 118/77 97 Laboratory Results 09/08/20 07:14 09/08/20 07:14 Diagnostic Findings cxr There is airspace consolidation in the right mid to lower lung and a small right pleural effusion. This is new from 09/04/2020. Correlate clinically for evidence of pneumonia/aspiration pneumonitis. Radiographic follow-up to resolution is recommended.
[2020-09-08] MEDS: CARBOHYDRATES FOR HYPOGLYCEMIA PO PRN ×2 (21:29→21:49)
[2020-09-08] MEDS: PANTOprazole 40 MG TAB PO SCH (21:57)
[2020-09-08] MEDS: DOXEPIN HCL 50 MG CAPSULE PO SCH (22:01)
[2020-09-08] MEDS: MAGNESIUM OXIDE 400 MG TAB PO SCH (22:02)
[2020-09-08] MEDS: CLOPIDOGREL BISULFATE 75 MG TAB PO SCH (22:03)
[2020-09-09 07:42] LABS: Basophils # (auto) 0.01 K/uL (0-0.2); Basophils % (auto) 0.2 %; Eosinophils # (auto) 0.24 K/uL (0-0.5); Eosinophils % (auto) 4.1 %; Hematocrit (blood only) 32.3 % (37-47); Hemoglobin 9.4 g/dL (12.0-16.0); Immature Granulocytes # (auto) 0.01 K/uL (0.00-0.02); Immature Granulocytes % (auto) 0.2 %; Lymphocytes # (auto) 1.64 K/uL (1.2-3.4); Lymphocytes % (auto) 27.7 %; Mean Corpuscular Hemoglobin 29.4 pg (25-34); Mean Corpuscular Hgb Conc 29.1 g/dL (32-36); Mean Corpuscular Volume 100.9 fL (80-100); Monocytes # (auto) 0.49 K/uL (0.11-0.59); Monocytes % (auto) 8.3 %; Neutrophils # (auto) 3.53 K/uL (1.4-6.5); Neutrophils % (auto) 59.5 %; Platelet Count 172 K/uL (130-400); RDW Coefficient of Variation 13.6 % (11.5-14.5); White Blood Count 5.92 K/uL (4.8-10.8)
[2020-09-09 08:04] LABS: BUN Creatinine Ratio 13.9 (10-20); Calcium 9.1 mg/dl (8.5-10.1); Creatinine Clr Calc Pharmacy 42.2 ml/min; Est GFR (African American) 47.3; Est GFR (Non-African American) 40.8; Magnesium 1.5 mg/dl (1.8-2.4); Potassium 3.4 mmol/L (3.5-5.1)
[2020-09-09 08:18] LABS: Phosphorus 3.2 mg/dl (2.5-4.9)
[2020-09-09] MEDS: INSULIN ASPART 100 UNITS/ML 3 ML PEN SC SCH ×4 (08:30→20:23)
[2020-09-09] MEDS: SUCRALFATE 1 GM/10 ML UDC PO SCH ×4 (08:31→20:18)
[2020-09-09] MEDS: FERROUS SULFATE 325 MG TAB PO SCH ×2 (08:31→20:18)
[2020-09-09] MEDS: CHOLECALCIFEROL 1,000 UNITS 25 MCG TAB PO SCH (08:31)
[2020-09-09] MEDS: HYDROCORTISONE SOD 50 MG in SYRINGE 0 ML IV SCH (08:31)
[2020-09-09] MEDS: DULoxetine HCL 60 MG CAP PO SCH (08:32)
[2020-09-09] MEDS: HEPARIN SOD 5,000 UNIT/0.5 ML VIAL SQ SCH ×2 (08:32→20:19)
[2020-09-09] MEDS: OXcarbazepine 150 MG TABLET PO SCH ×2 (08:32→20:20)
[2020-09-09] MEDS: SACCHAROMYCES BOULARDII 250 MG CAP PO SCH ×2 (08:32→20:19)
[2020-09-09] MEDS: PANTOprazole 40 MG TAB PO SCH ×2 (08:32→20:20)
[2020-09-09] MEDS: LIDOCAINE 5% 1 PATCH TD SCH (08:33)
[2020-09-09] MEDS ORDERED: POTASSIUM CHLORIDE CRTAB 20 MEQ TABCR PO STA (08:39)
[2020-09-09] MEDS: oxyCODONE HCL IR 5 MG TAB (IMMEDIATE RELEASE) PO PRN ×3 (08:48→23:48)
--- NOTE | 2020-09-09 09:54 | Gastrointestinal Consultation ---
Date of Consultation September 09, 2020 Assessment & Plan (1) Diarrhea: 64 year old female w/ history of DM II, dyslipidemia, CALI, asthma/COPD, bronchiectasis, HTN, dyslipidemia CKD III colon CA s/p resection who presents to the ED with worsening weakness and recurrent falls admitted to the ICU w/ urosepsis GI asked to evaluate for diarrhea, chronic since CCY and ileocolonic anastomosis for colon CA in 2010 w/ -20 loose BM days w/ nocturnal symptoms. She also notes chronic nausea, GERD, dysphagia. History of gastroparesis. Recently underwent EGD/Colonoscopy and VCE in 2019, reviewed Trial of low FODMAPs diet Can trial low dose antispasmodic during admission, Bentyl 10 mg three times daily Trial of Questran 4g daily Check stool studies to include c.diff and culture Can use Imodium PRN in addition if Questran if stool studies negative Gastroparesis diet PO PPI BID GERD dietary and lifestyle changes Continued work up for dysphagia per OP GI providers If no resolution of her diarrhea with above therapy consider OP colonoscopy w/ biopsies w/ Dr. Kidd Will sign off. Thank you for allowing us to participate in the care of this patient. Please call with any acute changes, questions or concerns. Please see addendum below with additional recommendation from my supervising physician. Supervising Physician Co-Signing Physician Notes I have seen and examined the patient and discussed the management with Elise Nesbitt. Consult for diarrhea. Prior histor of colon cancer in 2011 timeframe approximately, s/p ileo-sigmoid anastomosis with chronic diarrhea. Admitted 6 days ago with concerns for uti sepsis, covid negative, c diff positive early in 08/29 but now cdiff reportedly negative. vague reports of dysphagia- two prior egds done in 10/29 with biopsy breaking of a ring and summer with dilation to 18 mm most recently. PE - obese fm in nad, heent - perrla, neck - two gauzes on each neck side, abd - obese soft nt nd +bs Labs, imaging from 09/03 reviewed- ct a/p Agree with further plan of care as per deanna's plan. History of Present Illness Reason for Consultation: diarrhea Requesting Physician: Ly Attending Physician: Annette Modi MD History of Present Illness 64 year old female w/ history of DM II, dyslipidemia, CALI, asthma/COPD, bronchiectasis, HTN, dyslipidemia CKD III colon CA s/p resection who presents to the ED with worsening weakness and recurrent falls admitted to the ICU w/ urosepsis - GI asked to evaluate for diarrhea. Pt was seen and evaluated, chart reviewed. Notes diarrhea 10-20 x daily w/ nocturnal BMs since CCY and partial colectomy years ago. Stools are dark brown/green. No greasy/oily stools. No black or bloody stools. She does get lower abd cramping which is sharp w/ BM. This does resovle if she moves her bowels. No associated nausea/vomiting. She does have GERD and dysphagia to solids. She notes an unintentional weight loss between 8-15 lbs. GES 03/21/2020 showed borderline delayed gastric emptying EGD 2019: Gastroesophageal flap valve classified as Hill Grade IV (no fold, wide open lumen, hiatal hernia present). - Normal stomach. - Normal examined duodenum. - Dilation performed at the gastroesophageal junction. - No specimens collected. VCE 2019: negative Colonoscopy 2020: - The perianal and digital rectal examinations were normal. There was an ileocolonic anastamosis at 20 cm. The entire examined colon remnant was normal. The examined portion of the ileum was normal. EGD 2019: The GE junction was at 30 cm. There was a mild ring at the GE junction that was fractured with a biopsy forceps. There was a moderate hiatal hernia (hill class 4). The stomach mucosa was normal. Random biopsies done. The small intestine was normal. Random biopsies done. EGD 2019: The GE junction was at 35 cm. There was mild edema and erythema of the GE junction. The previously seen sentinel fold was much less prominent; the polypoid lesion was not seen. There was a mild ring at the GE junction. There was a moderate hiatal hernia. The stomach and duodenum were normal. Findings: - A guidewire was placed and the scope was withdrawn. Dilation was performed at the gastroesophageal junction with a Savary dilator with no resistance and no trauma at 16 mm and 18 mm. Allergies Allergy/AdvReac Type Severity Reaction Status Date / Time salicylates Allergy Severe SHORTNESS Verified 09/03/20 17:07 OF BREATH Iodinated Contrast Media Allergy Intermediate EYES Verified 09/03/20 17:07 SWELLING/Hives amoxicillin [From Augmentin] Allergy Mild Rash Verified 09/03/20 17:07 aspirin Allergy Mild FACIAL Verified 09/03/20 17:07 SWELLING clavulanic acid Allergy Mild Rash Verified 09/03/20 17:08 [From Augmentin] hydromorphone Allergy Mild RASH/ITCHIN Verified 09/03/20 17:08 G fentanyl Allergy itching/felt Verified 09/03/20 17:08 like throat closing meperidine AdvReac Intermediate ITCH Verified 09/03/20 17:08 morphine AdvReac Intermediate ITCH Verified 09/03/20 17:09 tramadol AdvReac Mild itch Verified 09/03/20 17:09 Home Medications Medication Instructions Recorded Confirmed Type atorvastatin [Lipitor] 40 mg PO QPM 07/12/18 09/03/20 History clopidogrel [Plavix] 75 mg PO QPM 07/12/18 09/03/20 History gabapentin 300 mg PO TID 07/12/18 09/03/20 History pantoprazole [Protonix] 40 mg PO BID 07/12/18 09/03/20 History riboflavin (vitamin B2) 400 mg PO QPM 07/12/18 09/03/20 History duloxetine 60 mg PO QAM 10/16/18 09/03/20 History cholecalciferol (vitamin D3) 2,000 unit PO QAM 05/16/19 09/03/20 History [Vitamin D3] oxcarbazepine [Trileptal] 300 mg PO BID 05/16/19 09/03/20 History albuterol sulfate 2 puff INHALATION Q4H PRN 07/21/19 09/03/20 History metoprolol succinate 75 mg PO BID 07/21/19 09/03/20 History magnesium oxide 400 mg PO HS 10/05/19 09/03/20 History doxepin 100 mg PO HS 11/30/19 09/03/20 History ferrous sulfate 325 mg PO BID 11/30/19 09/03/20 History glipizide [Glucotrol XL] 2.5 mg PO DAILY #30 tab 02/12/20 09/03/20 Rx Forteo 20 mcg SUBCUT Q14D 05/06/20 09/03/20 History Saccharomyces boulardii [Florastor] 250 mg PO BID 08/17/20 09/03/20 History lidocaine 1 patch TOPICAL DAILY 08/17/20 09/03/20 History lisinopril 2.5 mg PO DAILY 08/17/20 09/03/20 History ondansetron 4 mg PO Q8H PRN 08/17/20 09/03/20 History Patient History Medical History (Updated 09/09/20 @ 10:03 by NICHOL Garnica) Anxiety Asthma CHF (congestive heart failure) Chronic back pain Chronic headaches Chronic renal insufficiency stage 3, following with [facility] nephrology ([place]) COPD (chronic obstructive pulmonary disease) Deep vein thrombosis LLE - COULD NOT RECALL DATE - REPORTS SHE WAS TREATED AT [facility] W/ BLOOD THINNERS Degenerative disc disease Depression Diabetes mellitus, type 2 Diarrhea GERD (gastroesophageal reflux disease) Gram negative septicemia History of colon cancer 2012 S/P BOWEL RESECTION. History of esophageal dilatation Hyperlipidemia Hypertension Kidney stones Morbid obesity with BMI of 40.0-44.9, adult Myocardial Infarction 03/2018--> [facility] -- CARDIAC CATH --> NO STENTS/ANGIOPLASTY PER PT REPORT -- POOR HISTORIAN? REPORTS SHE IS ON PLAVIX FOR HEART - DENIES STENTS - DENIES ARRHYTHMIA - FOLLOWS W/ DR. TORRES On anticoagulant therapy plavix daily On home oxygen therapy 2L N/C at all times - states MD stopped this, patient states she is no longer using Osteoarthritis Poor historian Pyelonephritis Recurrent falls Seizure pt states "i think i had them a long time ago". no other information. Sepsis Surgical History H/O hand surgery RIGHT History of appendectomy History of bilateral cataract extraction History of blepharoplasty History of bowel resection d/t colon cancer History of cardiac cath 03/2018 - [place] - DENIES STENTS/ANGIOPLASTY - [facility] - FOLLOWS W/ DR. TORRES History of colonoscopy History of cystoscopy History of esophagogastroduodenoscopy (EGD) History of kidney surgery at age 9 yrs "something was wrong and had to fix it" History of lithotripsy History of tooth extraction History of total abdominal hysterectomy and bilateral salpingo-oophorectomy Hx of cholecystectomy Family History Other Breast cancer Social History Smoking Status: Unknown if ever smoked Second Hand Exposure: No; Do You Dip or Chew Tobacco: No; Tobacco Cessation Education Requested by Patient: No Hx Alcohol Use: No Hx Substance Use: No Preferred Language: Georgian Communication Ability: Effective Optometric Coordinator Required: No Beliefs That Will Affect Care: None marital status: Current Living Situation: Alone Current Living Situation Comment: alone in [place] Other Information That Helps Us Care for You: No Feels Safe at Home: Yes Assistive Devices: Oxygen - Continuous, Walker and Wheelchair Review of Systems Constitutional: + weight loss; no fever and no chills Respiratory: no cough Cardiovascular: no chest pain Gastrointestinal: + abdominal pain, + heartburn, + nausea, + dysphagia and + diarrhea/loose stools; no coffee ground emesis, no blood in stools and no melena Physical Exam Constitutional: + ill appearing and + obese; no acute distress Neck: trachea midline Respiratory: normal respiratory effort; no respiratory distress Gastrointestinal (Abdomen): Inspection/Auscultation: normal bowel sounds Percussion/Palpation: abdomen soft; abdomen nontender, no guarding and abdomen not rigid Skin: no rashes, warm and dry Results & Data ([facility]) Vital Signs (Past 12 Hours) Vital Signs Temp Pulse Pulse Resp BP Pulse Ox 09/09/20 08:14 36.5 C 70 18 90/52 L 95 09/09/20 07:17 64 09/09/20 03:31 37.1 C 65 17 91/61 L 95 09/08/20 23:21 36.4 C L 70 17 109/69 98 Laboratory Results 09/09/20 09/09/20 09/09/20 Range/Units 07:31 06:54 06:54 WBC 5.92 (4.8-10.8) K/uL RBC 3.20 L (4.2-5.4) M/uL Hgb 9.4 L (12.0-16.0) g/dL Hct 32.3 L (37-47) % MCV 100.9 H (80-100) fL MCH 29.4 (25-34) pg MCHC 29.1 L (32-36) g/dL RDW Std Deviation 50.0 H (36.4-46.3) fL RDW Coeff of Teresa 13.6 (11.5-14.5) % Plt Count 172 (130-400) K/uL MPV 11.0 H (7.4-10.4) fL Immature Gran % (Auto) 0.2 % Neut % (Auto) 59.5 % Lymph % (Auto) 27.7 % [place]ard % (Auto) 8.3 % Eos % (Auto) 4.1 % Baso % (Auto) 0.2 % Neut # (Auto) 3.53 (1.4-6.5) K/uL Lymph # (Auto) 1.64 (1.2-3.4) K/uL [place]ard # (Auto) 0.49 (0.11-0.59) K/uL Eos # (Auto) 0.24 (0-0.5) K/uL Baso # (Auto) 0.01 (0-0.2) K/uL Immature Gran # (Auto) 0.01 (0.00-0.02) K/uL Sodium 144 (136-145) mmol/L Potassium 3.4 L (3.5-5.1) mmol/L Chloride 108 H (98-107) mmol/L Carbon Dioxide 31 (21-32) mmol/L Anion Gap 5.0 (3-11) BUN 19 H (7-18) mg/dl Creatinine 1.35 H (0.6-1.2) mg/dl Est Cr Clr Drug Dosing 42.2 ml/min Est GFR ( Amer) 47.3 Est GFR (Non-Af Amer) 40.8 BUN/Creatinine Ratio 13.9 (10-20) Glucose 81 (70-99) mg/dl POC Glucose 88 (70-99) mg/dl Calcium 9.1 (8.5-10.1) mg/dl Phosphorus 3.2 (2.5-4.9) mg/dl Magnesium 1.5 L (1.8-2.4) mg/dl 09/09/20 09/08/20 09/08/20 Range/Units 03:34 22:09 21:49 WBC (4.8-10.8) K/uL RBC (4.2-5.4) M/uL Hgb (12.0-16.0) g/dL Hct (37-47) % MCV (80-100) fL MCH (25-34) pg MCHC (32-36) g/dL RDW Std Deviation (36.4-46.3) fL RDW Coeff of Teresa (11.5-14.5) % Plt Count (130-400) K/uL MPV (7.4-10.4) fL Immature Gran % (Auto) % Neut % (Auto) % Lymph % (Auto) % Seward % (Auto) % Eos % (Auto) % Baso % (Auto) % Neut # (Auto) (1.4-6.5) K/uL Lymph # (Auto) (1.2-3.4) K/uL Seward # (Auto) (0.11-0.59) K/uL Eos # (Auto) (0-0.5) K/uL Baso # (Auto) (0-0.2) K/uL Immature Gran # (Auto) (0.00-0.02) K/uL Sodium (136-145) mmol/L Potassium (3.5-5.1) mmol/L Chloride (98-107) mmol/L Carbon Dioxide (21-32) mmol/L Anion Gap (3-11) BUN (7-18) mg/dl Creatinine (0.6-1.2) mg/dl Est Cr Clr Drug Dosing ml/min Est GFR ( Amer) Est GFR (Non-Af Amer) BUN/Creatinine Ratio (10-20) Glucose (70-99) mg/dl POC Glucose 86 96 69 L* (70-99) mg/dl Calcium (8.5-10.1) mg/dl Phosphorus (2.5-4.9) mg/dl Magnesium (1.8-2.4) mg/dl 09/08/20 09/08/20 09/08/20 Range/Units 21:23 21:21 16:25 WBC (4.8-10.8) K/uL RBC (4.2-5.4) M/uL Hgb (12.0-16.0) g/dL Hct (37-47) % MCV (80-100) fL MCH (25-34) pg MCHC (32-36) g/dL RDW Std Deviation (36.4-46.3) fL RDW Coeff of Teresa (11.5-14.5) % Plt Count (130-400) K/uL MPV (7.4-10.4) fL Immature Gran % (Auto) % Neut % (Auto) % Lymph % (Auto) % Sew[place] % (Auto) % Eos % (Auto) % Baso % (Auto) % Neut # (Auto) (1.4-6.5) K/uL Lymph # (Auto) (1.2-3.4) K/uL Seward # (Auto) (0.11-0.59) K/uL Eos # (Auto) (0-0.5) K/uL Baso # (Auto) (0-0.2) K/uL Immature Gran # (Auto) (0.00-0.02) K/uL Sodium (136-145) mmol/L Potassium (3.5-5.1) mmol/L Chloride (98-107) mmol/L Carbon Dioxide (21-32) mmol/L Anion Gap (3-11) BUN (7-18) mg/dl Creatinine (0.6-1.2) mg/dl Est Cr Clr Drug Dosing ml/min Est GFR ( Amer) Est GFR (Non-Af Amer) BUN/Creatinine Ratio (10-20) Glucose (70-99) mg/dl POC Glucose 69 L* 66 L* 185 H (70-99) mg/dl Calcium (8.5-10.1) mg/dl Phosphorus (2.5-4.9) mg/dl Magnesium (1.8-2.4) mg/dl 09/08/ Range/Units 11:30 WBC (4.8-10.8) K/uL RBC (4.2-5.4) M/uL Hgb (12.0-16.0) g/dL Hct (37-47) % MCV (80-100) fL MCH (25-34) pg MCHC (32-36) g/dL RDW Std Deviation (36.4-46.3) fL RDW Coeff of Teresa (11.5-14.5) % Plt Count (130-400) K/uL MPV (7.4-10.4) fL Immature Gran % (Auto) % Neut % (Auto) % Lymph % (Auto) % Seward % (Auto) % Eos % (Auto) % Baso % (Auto) % Neut # (Auto) (1.4-6.5) K/uL Lymph # (Auto) (1.2-3.4) K/uL Seward # (Auto) (0.11-0.59) K/uL Eos # (Auto) (0-0.5) K/uL Baso # (Auto) (0-0.2) K/uL Immature Gran # (Auto) (0.00-0.02) K/uL Sodium (136-145) mmol/L Potassium (3.5-5.1) mmol/L Chloride (98-107) mmol/L Carbon Dioxide (21-32) mmol/L Anion Gap (3-11) BUN (7-18) mg/dl Creatinine (0.6-1.2) mg/dl Est Cr Clr Drug Dosing ml/min Est GFR ( Amer) Est GFR (Non-Af Amer) BUN/Creatinine Ratio (10-20) Glucose (70-99) mg/dl POC Glucose 105 H (70-99) mg/dl Calcium (8.5-10.1) mg/dl Phosphorus (2.5-4.9) mg/dl Magnesium (1.8-2.4) mg/dl
--- NOTE | 2020-09-09 11:05 | Nephrology Progress Note ---
Date of Service September 09, 2020 Assessment & Plan (1) CKD (chronic kidney disease), stage III: Patient admitted with PERRI on CKD3 >> Baseline creatinine of 1.5 and admission creatinine of 6.2 from Nonliguric ischemic ATN in setting of profound hypotension and metabolic acidosis; sepsis was ruled out. Given profound acidosis, oliguria and shock, she had two txs of dialysis on 09/04 & . creatinine at baseline past 48 hrs. -no further HD needed; PERRI resolved ->> dialysis catheter out now -daily bmp -K as below >>>OK from renal standpoint to remove hernandez (2) Flank pain with history of urolithiasis: pt with known staghorn calculus L and BL nephrolithiasis; also with hx chronic intermittent flank pain and recurrent UTI as OP; urology saw her at admission and day after > no intervention needed. yesterday w/ R sided pain and basically stable renal function and hgb -CXR shows ? if pain from pl effusion -renal u/s if pain recurs and/or worsening renal function -continue pain patch, reassurance -no further ivf needed (3) Disorders of fluid, electrolyte, and acid-base balance: Patient with severe metabolic acidosis likely due to ATN on presentation; also significant diarrhea on presentation. pH was 7.14. normalized after 2 rds dialysis. -as above/no further dialysis needed -today remains w/ resolved hypernatremia, hyperchloremia and improved creatinine >> dehydration improved >>>>>had 40 mEQ x 1 po K yesterday and K still low >> today will give 40 mEq x 2 doses and start standing K tomorrow 40 mEq >>>>daily bmp >>primary service tapering steroids -today no obvious cough thick cough (but still on baseline 02 needs, though pt reportedly stated the 2LNC had been stopped by OP physician) >> defer to primary service to f/u CXR findings 09/08 Admission and Anticipated Discharge Date Admission Date: September 03, 2020 Subjective feeling a bit better today; no sob or cough; flank pain improved; ongoing diarrhea Review of Systems Review of Systems: All systems reviewed & are unremarkable except as noted in HPI & below Physical Exam Constitutional: well developed, well nourished and cooperative; no acute distress lying flat on 02nc Eyes: EOM intact bilaterally ENMT: Ears: no external ear abnormality Nose: no external nose abnormality Mouth: + dry oral mucous membranes Neck: no nuchal rigidity Respiratory: normal respiratory effort and able to speak in complete sentences; no respiratory distress and no cough (today no cough) Auscultation: lungs clear to auscultation bilaterally and + diminished lung sounds Cardiovascular: Rate/Rhythm: regular rate and regular rhythm Extremities: no edema Gastrointestinal (Abdomen): Inspection/Auscultation: normal bowel sounds Percussion/Palpation: abdomen soft; abdomen nontender Musculoskeletal: Extremities: + abnormal strength (generalized weakness) Skin: no rashes, warm and dry Neurologic: gomez, fluent speech, no tremor Psychiatric: A+Ox3, euthymic affect Orientation: alert and oriented x 3 Speech: normal rate/rhythm/volume of speech Affect: + anxious affect (but calmer today) Genitourinary: hernandez w/ ample clear urine Results & Data ([facility]) Vital Signs (Past 12 Hours) Vital Signs Temp Pulse Pulse Resp BP Pulse Ox 09/09/20 08:14 36.5 C 70 18 90/52 L 95 09/09/20 07:17 64 09/09/20 03:31 37.1 C 65 17 91/61 L 95 09/08/20 23:21 36.4 C L 70 17 109/69 98 Laboratory Results 09/09/20 06:54 09/09/20 06:54
[2020-09-09] MEDS: POTASSIUM CHLORIDE CRTAB 20 MEQ TABCR PO SCH (11:32)
[2020-09-09] MEDS ORDERED: POTASSIUM CHLORIDE CRTAB 20 MEQ TABCR PO ONE (14:00)
--- NOTE | 2020-09-09 16:22 | Hospitalist Progress Note ---
Date of Service September 09, 2020 Assessment & Plan (1) Acute hypotension: This is a 64yo F with a PMH of DM II, dyslipidemia, CALI, asthma/COPD, bronchiectasis, HTN, CKD III who presents to the ED with worsening weakness and recurrent falls and was found to have acute hypotension and acute renal failure as well as complicated UTI. -Likely secondary to prolonged diarrhea and may be complicated by UTI with sepsis - In setting of acute renal failure and significant dehydration from very little PO fluid intake at home. - Patient is A&Ox4. Continue IV fluids with transition to bicarb drip. Holding lisinopril and Toprol -Was transferred to ICU as she required intravenous pressor to maintain blood pressure -Appreciate rating specialist input and recommendation -Blood pressure seems to be improving -Blood pressure has been going up -We will need to restart her oral medications -Hydrocortisone will be discontinued after tomorrow's dose -DC hydrocortisone -Blood pressure remains stable Possible sepsis has been ruled out Thought to be due to UTI Urine culture is growing yeast Blood cultures have been negative She has been on cefepime which will be discontinued after 3 days No evidence of UTI and blood cultures have been negative Antibiotic has been discontinued Chronic diarrhea She has been complaining of loose stools 4 or 5 times daily for the last few weeks We will send stool for C. difficile and also culture Stool has been negative for any C. difficile toxin Appreciate GI input and recommendation Extreme anxiety with increased shakiness since this morning Also complaining of abdominal discomfort and nausea Was given Phenergan, Maalox and Ativan as needed Remains anxious Shows much improvement Ongoing epigastric discomfort with nausea Has been on PPI intravenously twice daily and getting Maalox as needed We will add oral sucralfate and change Protonix to oral twice daily Her abdominal symptoms are better IV Protonix has been changed to p.o. twice daily GI consulted and appreciate their input (2) Acute renal failure: Creatinine significantly elevated at 6.25 (1.48 during admission last week) with hyperkalemia of 5.7. Bicarb 19 -Significant dehydration secondary to prolonged diarrhea with significant metabolic acidosis -Doubt any obstructive uropathy -Received 2 L bolus in ED, transitioning to bicarb drip -Given calcium gluconate for hyperkalemia. Giving 1/2 ampule of D50 prior to administration of IV insulin due to hypoglycemia -Appreciate nephrology input and recommendation -Has had dialysis -Creatinine has been improving and going to worse her baseline -We will continue current medications -No more hemodialysis needed and the dialysis catheter has been discontinued -Creatinine is minimally high today and the diuretic doses have been adjusted accordingly by director college -PERRI resolved Severe metabolic acidosis on admission Required intravenous bicarb drip Hypokalemia and CO2 level has been up as of this morning Bicarb drip has been stopped Received hemodialysis Metabolic acidosis seems to be corrected (3) Recurrent falls: (4) Weakness: Has had multiple falls of the same nature over the past few months and was admitted with similar symptoms last month -Poor PO intake at home, renal failure, deconditioning -IV fluid resuscitation, fall precautions, PT/OT evaluation, discharge planning Will start PT and OT evaluation (5) Complicated UTI (urinary tract infection): -Nephrolithiasis with staghorn calculus in left pelvis -Possible sepsis secondary to UTI has been ruled out -Abnormal UA with urine, blood cultures pending. Continue empiric Rocephin and IV fluids -CT abd/pelvis with bilateral nephrolithiasis. Persistent small staghorn calculus within a mildly dilated left renal pelvis -Discussed findings with urology, who do not feel procedure is indicated since no strone is obstructing -Doubt any obstructive uropathy -Appreciate urology input and recommendation -Started on intravenous Rocephin and then changed to IV cefepime and daptomycin -Daptomycin has been discontinued by the rating specialist -Urine culture has been growing yeast and blood cultures are negative -We will discontinue intravenous antibiotic after 3 days Nephrolithiasis Has been complaining of abdominal pain Has allergy to morphine and Dilaudid Reviewed the medical records and she got oxycodone and let 2019 Will try oral oxycodone to control pain Pain seems to be reasonably controlled with oral oxycodone (6) Depression: Appears depressed on exam with flattened affect, poor appetite. Continue duloxetine (7) DM type 2 (diabetes mellitus, type 2): -Hold home agents -SSI while in-patient -BSG AC HS -Glycemic pharmacist consulted (8) Obesity hypoventilation syndrome: Also has CALI -CPAP intolerant. Monitor for hypoxia DVT Ppx: SQ heparin Code status: FULL PCP: Mannie Dispo: Admit to PCU. Discharge planning ordered. Admission and Anticipated Discharge Date Admission Date: September 03, 2020 Subjective 09/04/2020 The patient was seen and examined in ICU He was transferred to ICU from PCU due to continued hypotension and requiring intravenous pressors and She remains generally very weak and lethargic and has been checking with severe anxiety Denies any shortness of breath, chest pain or palpitation No abdominal pain, nausea and or vomiting 09/05/2020 The patient was seen and examined in ICU She has been feeling a lot better today but complains today of some epigastric discomfort with nausea and occasional vomiting No distention of the abdomen Denies any fever and/or chills, denies any shortness of breath 09/06/2020 The patient was seen and examined in telemetry unit She has been complaining of nausea, back pain and not been feeling well She has not been eating or drinking and has been taking her oral medications Denies any fever and/or chills 09/07/2020 The patient was seen and examined in telemetry unit She has been complaining of nonspecific symptoms involving weakness, back pain, nausea and not been taking her oral medications No shortness of breath at rest and no fever and no chills 09/08/2020 The patient was seen and examined in telemetry unit He has been feeling much better today Denies any epigastric pain but still has discomfort and feels nauseous without any vomiting Pain seems to be under control but remains very anxious Denies any fever and/or chills 09/09/2020 The patient was seen and examined in telemetry unit She has been feeling much better today Denies any significant epigastric pain and no nausea Still having diarrhea Review of Systems Review of Systems: All systems reviewed and are unremarkable except as noted below Constitutional: + fatigue and + weakness; no chills Neurologic: + generalized weakness Physical Exam Physical Exam: Lying in bed without any distress Constitutional: well developed, well nourished, + ill appearing and + obese; no acute distress (Due to epigastric/abdominal pain and nausea) Eyes: PERRL, conjunctivae normal, anicteric sclerae ENMT: external ear and nose normal, oropharynx normal Neck: trachea midline, no thyromegaly Respiratory: no respiratory distress (Minimal at rest) Auscultation: lungs clear to auscultation bilaterally and + diminished lung sounds Cardiovascular: Rate/Rhythm: regular rate and regular rhythm Heart Sounds: no murmur Extremities: + edema (Trace edema bilaterally) Gastrointestinal (Abdomen): Inspection/Auscultation: normal bowel sounds; abdomen not distended Percussion/Palpation: abdomen soft; abdomen nontender (Mildly tender epigastrium and is improving) Musculoskeletal: No acute arthritis in any joint Psychiatric: Affect: + anxious affect Mood: + anxious mood and + irritable mood Lymphatic: no cervical or axillary lymphadenopathy Results & Data Results & Data ([facility]) Vital Signs (Past 12 Hours) Vital Signs Temp Pulse Pulse Resp BP Pulse Ox 09/09/20 15:15 37.2 C 79 18 129/71 98 09/09/20 12:05 36.5 C 77 18 105/65 98 09/09/20 08:14 36.5 C 70 18 90/52 L 95 09/09/20 07:17 64 Laboratory Results Short CBC 09/09/20 Range/Units 06:54 WBC 5.92 (4.8-10.8) K/uL Hgb 9.4 L (12.0-16.0) g/dL Hct 32.3 L (37-47) % Plt Count 172 (130-400) K/uL BMP 09/09/20 06:54 Sodium 144 Potassium 3.4 L Chloride 108 H Carbon Dioxide 31 BUN 19 H Creatinine 1.35 H Glucose 81 Calcium 9.1 Medications Administered Current Inpatient Medications Acetaminophen (Acetaminophen 325 Mg Tab) 650 mg PO Q4H PRN PRN Reason: Pain or Fever Stop: 10/03/20 20:44 Last Admin: 09/04/20 16:51 Dose: 650 mg Documented by: Al Hydrox/Mg Hydrox/Simethicone (Aluminum/Magnesium Susp 30 Ml Udc) 30 ml PO Q6H PRN PRN Reason: Dyspepsia Stop: 10/06/20 15:46 Last Admin: 09/06/20 16:10 Dose: 30 ml Documented by: Albuterol (Albuterol Hfa 8 Gm Inhaler) 2 puffs INH Q4H PRN PRN Reason: Shortness Of Breath Stop: 10/03/20 20:31 Albuterol (Albut/Ipratrop 3mg/0.5mg Neb 3 Ml Vial) 3 ml NEB Q4R PRN PRN Reason: Shortness Of Breath Or Wheezing Stop: 10/04/20 03:26 Cholestyramine Resin (Cholestyramine Light 4 Gm Pkt) 4 gm PO DAILY@1000 [facility]LA Stop: 10/10/20 09:59 Clopidogrel Bisulfate (Clopidogrel Bisulfate 75 Mg Tab) 75 mg PO QPM [facility]LA Stop: 10/03/20 20:59 Last Admin: 09/08/20 22:03 Dose: 75 mg Documented by: Dextrose (Dextrose 50% 50 Ml Syringe) 25 - 50 ml IV UD PRN; Protocol PRN Reason: Hypoglycemia Protocol Stop: 10/03/20 20:44 Doxepin HCl (Doxepin Hcl 50 Mg Capsule) 100 mg PO HS MARLA Stop: 10/04/20 20:59 Last Admin: 09/08/20 22:01 Dose: 100 mg Documented by: Duloxetine HCl (Duloxetine Hcl 60 Mg Cap) 60 mg PO QAM [facility]LA Stop: 10/04/20 08:59 Last Admin: 09/09/20 08:32 Dose: 60 mg Documented by: Ferrous Sulfate (Ferrous Sulfate 325 Mg Tab) 325 mg PO BID [facility]LA Stop: 10/04/20 08:59 Last Admin: 09/09/20 08:31 Dose: 325 mg Documented by: Glucagon (Glucagon For Inj 1 Mg Vial) 1 mg SQ UD PRN; Protocol PRN Reason: Hypoglycemia Protocol Stop: 10/03/20 20:44 Glucose (Glucose 10 Tabs/Tube) 4 - 8 tabs PO UD PRN; Protocol PRN Reason: Hypoglycemia Protocol Stop: 10/03/20 20:44 Glucose (Glucose 40% Gel 15 Gm Tube) 15 - 30 gm PO UD PRN; Protocol PRN Reason: Hypoglycemia Protocol Stop: 10/03/20 20:44 Heparin Sodium (Beef Lung) (Heparin 10 Unit/Ml 5 Ml Flush) 5 ml FLUSH PRN PRN PRN Reason: Flush Stop: 10/04/20 23:52 Heparin Sodium (Porcine) (Heparin Sod 5,000 Unit/0.5 Ml Vial) 5,000 units SQ Q12 [facility]LA Stop: 10/05/20 20:59 Last Admin: 09/09/20 08:32 Dose: 5,000 units Documented by: Promethazine HCl 12.5 mg/ (Sodium Chloride) 50.5 mls @ 202 mls/hr IV Q6H PRN PRN Reason: Nausea And Vomiting Stop: 10/06/20 15:46 Last Infusion: 09/06/20 16:39 Dose: Infused Documented by: Lorazepam (Ativan) 0.25 mg in 0.5 mls @ 0.5 mls/min IV Q4H PRN PRN Reason: Agitation Stop: 10/06/20 15:46 Last Admin: 09/06/20 20:38 Dose: 0.5 mls/min Documented by: Insulin Aspart (Insulin Aspart 100 Units/Ml 3 Ml Pen) 0 units SC ACHS MARLA Stop: 10/04/20 16:29 Last Admin: 09/09/20 12:07 Dose: 4 units Documented by: Lidocaine (Lidocaine 5% 1 Patch) 1 patch TD DAILY MARLA Stop: 10/04/20 08:59 Last Admin: 09/09/20 08:33 Dose: 1 patch Documented by: Magnesium Oxide (Magnesium Oxide 400 Mg Tab) 400 mg PO HS MARLA Stop: 10/03/20 20:59 Last Admin: 09/08/20 22:02 Dose: 400 mg Documented by: Miscellaneous (Remove Lidoderm Patch) 1 ea N/A DAILY@2100 [facility] Stop: 10/03/20 20:59 Last Admin: 09/08/20 22:02 Dose: 1 ea Documented by: Miscellaneous (Carbohydrates For Hypoglycemia ) 15 - 30 gm PO UD PRN PRN Reason: Hypoglycemia Protocol Stop: 10/03/20 20:44 Last Admin: 09/08/20 21:49 Dose: 15 gm Documented by: Ondansetron HCl (Ondansetron Inj 2 Mg/Ml 2 Ml Vial) 4 mg IV Q6H PRN PRN Reason: Nausea Stop: 10/04/20 22:35 Last Admin: 09/08/20 06:23 Dose: 4 mg Documented by: Oxcarbazepine (Oxcarbazepine 150 Mg Tablet) 300 mg PO BID [facility]; Protocol Stop: 10/06/20 20:59 Last Admin: 09/09/20 08:32 Dose: 300 mg Documented by: Oxycodone HCl (Oxycodone Hcl Ir 5 Mg Tab (Immediate Release)) 10 mg PO Q4H PRN PRN Reason: Pain Stop: 09/20/20 16:38 Last Admin: 09/09/20 08:48 Dose: 10 mg Documented by: Pantoprazole Sodium (Pantoprazole 40 Mg Tab) 40 mg PO BID [facility] Stop: 10/08/20 20:59 Last Admin: 09/09/20 08:32 Dose: 40 mg Documented by: Potassium Chloride (Potassium Chloride Crtab 20 Meq Tabcr) 40 meq PO QAM [facility] Stop: 10/09/20 11:14 Last Admin: 09/09/20 11:32 Dose: Not Given Documented by: Saccharomyces Boulardii (Saccharomyces Boulardii 250 Mg Cap) 250 mg PO BID MARLA Stop: 10/03/20 20:59 Last Admin: 09/09/20 08:32 Dose: 250 mg Documented by: Sucralfate (Sucralfate 1 Gm/10 Ml Udc) 1 gm PO QID MARLA Stop: 10/07/20 12:59 Last Admin: 09/09/20 12:08 Dose: 1 gm Documented by: Vitamin D (Cholecalciferol 1,000 Units 25 Mcg Tab) 2,000 units PO QAM [facility] Stop: 10/04/20 08:59 Last Admin: 09/09/20 08:31 Dose: 2,000 units Documented by:
[2020-09-09] MEDS: MAGNESIUM SULFATE / D5W 1 GM/100 ML BAG IV SCH ×2 (17:07→19:09)
[2020-09-09] MEDS: MAGNESIUM OXIDE 400 MG TAB PO SCH (20:19)
[2020-09-09] MEDS: DOXEPIN HCL 50 MG CAPSULE PO SCH (20:21)
[2020-09-09] MEDS: CLOPIDOGREL BISULFATE 75 MG TAB PO SCH (20:22)
[2020-09-10 08:36] LABS: BUN Creatinine Ratio 14.8 (10-20); Calcium 9.2 mg/dl (8.5-10.1); Creatinine Clr Calc Pharmacy 45.3 ml/min; Est GFR (African American) 51.4; Est GFR (Non-African American) 44.4; Magnesium 1.9 mg/dl (1.8-2.4); Potassium 3.4 mmol/L (3.5-5.1)
[2020-09-10 08:41] LABS: Basophils # (auto) 0.01 K/uL (0-0.2); Basophils % (auto) 0.2 %; Eosinophils # (auto) 0.31 K/uL (0-0.5); Eosinophils % (auto) 4.8 %; Hematocrit (blood only) 33.4 % (37-47); Hemoglobin 9.8 g/dL (12.0-16.0); Immature Granulocytes # (auto) 0.02 K/uL (0.00-0.02); Immature Granulocytes % (auto) 0.3 %; Lymphocytes # (auto) 1.85 K/uL (1.2-3.4); Lymphocytes % (auto) 28.7 %; Mean Corpuscular Hemoglobin 29.8 pg (25-34); Mean Corpuscular Hgb Conc 29.3 g/dL (32-36); Mean Corpuscular Volume 101.5 fL (80-100); Mean Platelet Volume 11.3 fL (7.4-10.4); Monocytes # (auto) 0.55 K/uL (0.11-0.59); Monocytes % (auto) 8.5 %; Neutrophils % (auto) 57.5 %; Platelet Count 170 K/uL (130-400); RDW Coefficient of Variation 13.6 % (11.5-14.5); RDW Standard Deviation 50.4 fL (36.4-46.3); Red Blood Count 3.29 M/uL (4.2-5.4); White Blood Count 6.44 K/uL (4.8-10.8)
[2020-09-10] MEDS: oxyCODONE HCL IR 5 MG TAB (IMMEDIATE RELEASE) PO PRN ×3 (09:01→22:16)
[2020-09-10] MEDS: SUCRALFATE 1 GM/10 ML UDC PO SCH ×4 (09:02→22:04)
[2020-09-10] MEDS: OXcarbazepine 150 MG TABLET PO SCH ×2 (09:02→22:08)
[2020-09-10] MEDS: FERROUS SULFATE 325 MG TAB PO SCH ×2 (09:02→22:06)
[2020-09-10] MEDS: CHOLECALCIFEROL 1,000 UNITS 25 MCG TAB PO SCH (09:02)
[2020-09-10] MEDS: POTASSIUM CHLORIDE CRTAB 20 MEQ TABCR PO SCH (09:02)
[2020-09-10] MEDS: DULoxetine HCL 60 MG CAP PO SCH (09:02)
[2020-09-10] MEDS: INSULIN ASPART 100 UNITS/ML 3 ML PEN SC SCH ×4 (09:02→22:03)
[2020-09-10] MEDS: SACCHAROMYCES BOULARDII 250 MG CAP PO SCH ×2 (09:02→22:06)
[2020-09-10] MEDS: LIDOCAINE 5% 1 PATCH TD SCH (09:03)
[2020-09-10] MEDS: HEPARIN SOD 5,000 UNIT/0.5 ML VIAL SQ SCH ×2 (09:03→22:05)
[2020-09-10] MEDS: PANTOprazole 40 MG TAB PO SCH ×2 (11:12→22:05)
[2020-09-10] MEDS: CHOLESTYRAMINE LIGHT 4 GM PKT PO SCH (12:47)
--- NOTE | 2020-09-10 17:13 | Hospitalist Progress Note ---
Date of Service September 10, 2020 Assessment & Plan (1) Chronic diarrhea: (2) Acute hypotension: Profound hypotension and acidosis in setting of acute renal failure with sepsis ruled out. She required pressor support and two sessions of HD and was intubated for a short time. She received stress dose steroids. She has recovered from this with all her recent treatments and BP is low normal. Will resume lisinopril per nephro recommendations. Chronic diarrhea She has been complaining of loose stools 4 or 5 times daily for the last few weeks We will send stool for C. difficile and also culture Stool has been negative for any C. difficile toxin Appreciate GI input and recommendation Extreme anxiety with increased shakiness since this morning Also complaining of abdominal discomfort and nausea Was given Phenergan, Maalox and Ativan as needed Remains anxious Shows much improvement Ongoing epigastric discomfort with nausea Has been on PPI intravenously twice daily and getting Maalox as needed We will add oral sucralfate and change Protonix to oral twice daily Her abdominal symptoms are better IV Protonix has been changed to p.o. twice daily GI consulted and appreciate their input (3) Acute renal failure: Creatinine significantly elevated at 6.25 (1.48 during admission last week) with hyperkalemia of 5.7. Bicarb 19 -Significant dehydration secondary to prolonged diarrhea with significant metabolic acidosis -Doubt any obstructive uropathy -Received 2 L bolus in ED, transitioning to bicarb drip -Given calcium gluconate for hyperkalemia. Giving 1/2 ampule of D50 prior to administration of IV insulin due to hypoglycemia -Appreciate nephrology input and recommendation -Has had dialysis -Creatinine has been improving and going to worse her baseline -We will continue current medications -No more hemodialysis needed and the dialysis catheter has been discontinued -Creatinine is minimally high today and the diuretic doses have been adjusted accordingly by assistant director -PERRI resolved Severe metabolic acidosis on admission Required intravenous bicarb drip Hypokalemia and CO2 level has been up as of this morning Bicarb drip has been stopped Received hemodialysis Metabolic acidosis seems to be corrected (4) Recurrent falls: (5) Weakness: Has had multiple falls of the same nature over the past few months and was admitted with similar symptoms last month -Poor PO intake at home, renal failure, deconditioning -IV fluid resuscitation, fall precautions, PT/OT evaluation, discharge planning Will start PT and OT evaluation (6) Complicated UTI (urinary tract infection): -Nephrolithiasis with staghorn calculus in left pelvis -Possible sepsis secondary to UTI has been ruled out -Abnormal UA with urine, blood cultures pending. Continue empiric Rocephin and IV fluids -CT abd/pelvis with bilateral nephrolithiasis. Persistent small staghorn calculus within a mildly dilated left renal pelvis -Discussed findings with urology, who do not feel procedure is indicated since no strone is obstructing -Doubt any obstructive uropathy -Appreciate urology input and recommendation -Started on intravenous Rocephin and then changed to IV cefepime and daptomycin -Daptomycin has been discontinued by the lye machine operator -Urine culture has been growing yeast and blood cultures are negative -We will discontinue intravenous antibiotic after 3 days Nephrolithiasis Has been complaining of abdominal pain Has allergy to morphine and Dilaudid Reviewed the medical records and she got oxycodone and let 2018 Will try oral oxycodone to control pain Pain seems to be reasonably controlled with oral oxycodone (7) Depression: Appears depressed on exam with flattened affect, poor appetite. Continue duloxetine (8) DM type 2 (diabetes mellitus, type 2): -Hold home agents -SSI while in-patient -BSG AC HS -Glycemic pharmacist consulted (9) Obesity hypoventilation syndrome: Also has CALI -CPAP intolerant. Monitor for hypoxia DVT Ppx: SQ heparin Code status: FULL PCP: Mannie Dispo: Admit to PCU. Discharge planning ordered. Admission and Anticipated Discharge Date Admission Date: September 03, 2020 Review of Systems Review of Systems: All systems reviewed & are unremarkable except as noted in Subjective Physical Exam Physical Exam: CONSTITUTIONAL: WNWD, vitals as above, generally well- appearing EYES: normal conjunctivae, no scleral icterus ENT: external ear and nose normal, MMM RESPIRATORY: mild rhonchi on right base, otherwise clear to auscultation bilaterally, no rales or wheezes, normal respiratory effort CARDIOVASCULAR: regular rate and rhythm, S1 and 2 heard without murmurs, gallops or rubs, no JVD, no peripheral edema GASTROINTESTINAL: soft, nontender, nondistended, no guarding MUSCULOSKELETAL: strength 5/5 throughout, head is normocephalic and atraumatic SKIN: warm and dry NEUROLOGIC: No facial palsy, no dysarthria. CN 2-12 grossly intact, normal cognition, normal speech PSYCHIATRIC: alert cooperative and oriented to person, place and time. Results & Data Results & Data ([facility]) Vital Signs (Past 12 Hours) Vital Signs Temp Pulse Pulse Resp BP BP Pulse Ox 09/10/20 16:01 36.9 C 102 H 18 149/93 H 97 09/10/20 11:52 37.2 C 70 18 119/60 95 09/10/20 08:45 36.5 C 69 16 101/56 L 98 09/10/20 08:00 66 Laboratory Results Short CBC 09/10/20 Range/Units 07:45 WBC 6.44 (4.8-10.8) K/uL Hgb 9.8 L (12.0-16.0) g/dL Hct 33.4 L (37-47) % Plt Count 170 (130-400) K/uL BMP 09/10/20 07:45 Sodium 141 Potassium 3.4 L Chloride 107 Carbon Dioxide 29 BUN 19 H Creatinine 1.26 H Glucose 86 Calcium 9.2 Medications Administered Current Inpatient Medications Acetaminophen (Acetaminophen 325 Mg Tab) 650 mg PO Q4H PRN PRN Reason: Pain or Fever Stop: 10/03/20 20:44 Last Admin: 09/04/20 16:51 Dose: 650 mg Documented by: Al Hydrox/Mg Hydrox/Simethicone (Aluminum/Magnesium Susp 30 Ml Udc) 30 ml PO Q6H PRN PRN Reason: Dyspepsia Stop: 10/06/20 15:46 Last Admin: 09/06/20 16:10 Dose: 30 ml Documented by: Albuterol (Albuterol Hfa 8 Gm Inhaler) 2 puffs INH Q4H PRN PRN Reason: Shortness Of Breath Stop: 10/03/20 20:31 Albuterol (Albut/Ipratrop 3mg/0.5mg Neb 3 Ml Vial) 3 ml NEB Q4R PRN PRN Reason: Shortness Of Breath Or Wheezing Stop: 10/04/20 03:26 Cholestyramine Resin (Cholestyramine Light 4 Gm Pkt) 4 gm PO DAILY@1000 [facility]LA Stop: 10/10/20 09:59 Last Admin: 09/10/20 12:47 Dose: 4 gm Documented by: Clopidogrel Bisulfate (Clopidogrel Bisulfate 75 Mg Tab) 75 mg PO QPM MARLA Stop: 10/03/20 20:59 Last Admin: 09/09/20 20:22 Dose: 75 mg Documented by: Dextrose (Dextrose 50% 50 Ml Syringe) 25 - 50 ml IV UD PRN; Protocol PRN Reason: Hypoglycemia Protocol Stop: 10/03/20 20:44 Doxepin HCl (Doxepin Hcl 50 Mg Capsule) 100 mg PO HS MARLA Stop: 10/04/20 20:59 Last Admin: 09/09/20 20:21 Dose: 100 mg Documented by: Duloxetine HCl (Duloxetine Hcl 60 Mg Cap) 60 mg PO QAM [facility] Stop: 10/04/20 08:59 Last Admin: 09/10/20 09:02 Dose: 60 mg Documented by: Ferrous Sulfate (Ferrous Sulfate 325 Mg Tab) 325 mg PO BID [facility]LA Stop: 10/04/20 08:59 Last Admin: 09/10/20 09:02 Dose: 325 mg Documented by: Glucagon (Glucagon For Inj 1 Mg Vial) 1 mg SQ UD PRN; Protocol PRN Reason: Hypoglycemia Protocol Stop: 10/03/20 20:44 Glucose (Glucose 10 Tabs/Tube) 4 - 8 tabs PO UD PRN; Protocol PRN Reason: Hypoglycemia Protocol Stop: 10/03/20 20:44 Glucose (Glucose 40% Gel 15 Gm Tube) 15 - 30 gm PO UD PRN; Protocol PRN Reason: Hypoglycemia Protocol Stop: 10/03/20 20:44 Heparin Sodium (Beef Lung) (Heparin 10 Unit/Ml 5 Ml Flush) 5 ml FLUSH PRN PRN PRN Reason: Flush Stop: 10/04/20 23:52 Heparin Sodium (Porcine) (Heparin Sod 5,000 Unit/0.5 Ml Vial) 5,000 units SQ Q12 [facility]LA Stop: 10/05/20 20:59 Last Admin: 09/10/20 09:03 Dose: 5,000 units Documented by: Promethazine HCl 12.5 mg/ (Sodium Chloride) 50.5 mls @ 202 mls/hr IV Q6H PRN PRN Reason: Nausea And Vomiting Stop: 10/06/20 15:46 Last Infusion: 09/06/20 16:39 Dose: Infused Documented by: Lorazepam (Ativan) 0.25 mg in 0.5 mls @ 0.5 mls/min IV Q4H PRN PRN Reason: Agitation Stop: 10/06/20 15:46 Last Admin: 09/06/20 20:38 Dose: 0.5 mls/min Documented by: Insulin Aspart (Insulin Aspart 100 Units/Ml 3 Ml Pen) 0 units SC ACHS [facility] Stop: 10/04/20 16:29 Last Admin: 09/10/20 12:13 Dose: 3 units Documented by: Lidocaine (Lidocaine 5% 1 Patch) 1 patch TD DAILY [facility] Stop: 10/04/20 08:59 Last Admin: 09/10/20 09:03 Dose: 1 patch Documented by: Magnesium Oxide (Magnesium Oxide 400 Mg Tab) 400 mg PO HS [facility] Stop: 10/03/20 20:59 Last Admin: 09/09/20 20:19 Dose: 400 mg Documented by: Miscellaneous (Remove Lidoderm Patch) 1 ea N/A DAILY@2100 [facility] Stop: 10/03/20 20:59 Last Admin: 09/09/20 20:20 Dose: 1 ea Documented by: Miscellaneous (Carbohydrates For Hypoglycemia ) 15 - 30 gm PO UD PRN PRN Reason: Hypoglycemia Protocol Stop: 10/03/20 20:44 Last Admin: 09/08/20 21:49 Dose: 15 gm Documented by: Ondansetron HCl (Ondansetron Inj 2 Mg/Ml 2 Ml Vial) 4 mg IV Q6H PRN PRN Reason: Nausea Stop: 10/04/20 22:35 Last Admin: 09/08/20 06:23 Dose: 4 mg Documented by: Oxcarbazepine (Oxcarbazepine 150 Mg Tablet) 300 mg PO BID [facility]; Protocol Stop: 10/06/20 20:59 Last Admin: 09/10/20 09:02 Dose: 300 mg Documented by: Oxycodone HCl (Oxycodone Hcl Ir 5 Mg Tab (Immediate Release)) 10 mg PO Q4H PRN PRN Reason: Pain Stop: 09/20/20 16:38 Last Admin: 09/10/20 14:08 Dose: 10 mg Documented by: Pantoprazole Sodium (Pantoprazole 40 Mg Tab) 40 mg PO BID [facility] Stop: 10/08/20 20:59 Last Admin: 09/10/20 11:12 Dose: 40 mg Documented by: Potassium Chloride (Potassium Chloride Crtab 20 Meq Tabcr) 40 meq PO QAM [facility] Stop: 10/09/20 11:14 Last Admin: 09/10/20 09:02 Dose: 40 meq Documented by: Saccharomyces Boulardii (Saccharomyces Boulardii 250 Mg Cap) 250 mg PO BID [facility] Stop: 10/03/20 20:59 Last Admin: 09/10/20 09:02 Dose: 250 mg Documented by: Sucralfate (Sucralfate 1 Gm/10 Ml Udc) 1 gm PO QID [facility] Stop: 10/07/20 12:59 Last Admin: 09/10/20 12:14 Dose: 1 gm Documented by: Vitamin D (Cholecalciferol 1,000 Units 25 Mcg Tab) 2,000 units PO QAM [facility] Stop: 10/04/20 08:59 Last Admin: 09/10/20 09:02 Dose: 2,000 units Documented by:
--- NOTE | 2020-09-10 18:47 | Nephrology Progress Note ---
Date of Service September 10, 2020 Assessment & Plan (1) CKD (chronic kidney disease), stage III: Patient admitted with PERRI on CKD3 >> Baseline creatinine of 1.5 and admission creatinine of 6.2 from Nonliguric ischemic ATN in setting of profound hypotension and metabolic acidosis; sepsis was ruled out. Given profound acidosis, oliguria and shock, she had two txs of dialysis on 09/04 & . creatinine at baseline past 48 hrs. -no further HD needed; PERRI resolved ->> dialysis catheter as well as Purvis both out now -daily bmp -K as below >>> She already has a October 2020 follow-up appointment with renal PA in [place]: Should keep this; recommend checking basic metabolic panel pr oximately 1 week after discharge >>> Would discharge on potassium 20 milliequivalents daily if labs support this; also please resume outpatient lisinopril at discharge -We will sign off call if questions (2) Flank pain with history of urolithiasis: pt with known staghorn calculus L and BL nephrolithiasis; also with hx chronic intermittent flank pain and recurrent UTI as OP; urology saw her at admission and day after > no intervention needed. earlier this admission w/ R sided pain and basically stable renal function and hgb; resolved now -renal u/s if pain recurs and/or worsening renal function -continue pain patch, reassurance (3) Disorders of fluid, electrolyte, and acid-base balance: Patient with severe metabolic acidosis likely due to ATN on presentation; also significant diarrhea on presentation. pH was 7.14. normalized after 2 rds dialysis. -as above/no further dialysis needed -today remains w/ resolved hypernatremia, hyperchloremia and improved creatinine >> dehydration improved >>>>>new this admission on standing K tomorrow 40 mEq >>>>daily bmp >>primary service tapering steroids -today no obvious cough thick cough (but still on baseline 02 needs, though pt reportedly stated the 2LNC had been stopped by OP physician) >> defer to primary service to f/u CXR findings 09/08 Admission and Anticipated Discharge Date Admission Date: September 03, 2020 Subjective Seen on evening rounds. No acute interval events. Tolerating p.o. and asking for extra servings. Denies dyspnea or cough recurrence of flank pain Review of Systems Review of Systems: All systems reviewed & are unremarkable except as noted in HPI & below Physical Exam Constitutional: well developed, well nourished and cooperative; no acute distress Up in chair on 2 L O2 nasal cannula Eyes: EOM intact bilaterally ENMT: Ears: no external ear abnormality Nose: no external nose abnormality Mouth: + dry oral mucous membranes Neck: no nuchal rigidity Respiratory: normal respiratory effort and able to speak in complete sente nces; no respiratory distress and no cough (today no cough) Auscultation: lungs clear to auscultation bilaterally and + diminished lung sounds Cardiovascular: Rate/Rhythm: regular rate (Not tachycardic on my exam) and r egular rhythm Extremities: no edema Gastrointestinal (Abdomen): Inspection/Auscultation: normal bowel sounds Percussion/Palpation: abdomen soft; abdomen nontender Musculoskeletal: Extremities: + abnormal strength (generalized weakness) Skin: no rashes, warm and dry Neurologic: Moves all extremities, fluent speech, notable ongoing bilateral upper extremity limb tremors Psychiatric: A+Ox3, euthymic affect Orientation: alert and oriented x 3 Speech: normal rate/rhythm/volume of speech Affect: + anxious affect (but calmer today) Results & Data ([facility]) Vital Signs (Past 12 Hours) Vital Signs Temp Pulse Pulse Resp BP BP Pulse Ox 09/10/20 16:01 36.9 C 102 H 18 149/93 H 97 09/10/20 11:52 37.2 C 70 18 119/60 95 09/10/20 08:45 36.5 C 69 16 101/56 L 98 09/10/20 08:00 66 Laboratory Results 09/10/20 07:45 09/10/20 07:45
[2020-09-10] MEDS: MAGNESIUM OXIDE 400 MG TAB PO SCH (22:05)
[2020-09-10] MEDS: CLOPIDOGREL BISULFATE 75 MG TAB PO SCH (22:07)
[2020-09-10] MEDS: DOXEPIN HCL 50 MG CAPSULE PO SCH (22:08)
[2020-09-11] MEDS ORDERED: lisinopril 2.5 MG TAB PO SCH (09:00)
[2020-09-11] MEDS: INSULIN ASPART 100 UNITS/ML 3 ML PEN SC SCH ×2 (10:03→12:30)
[2020-09-11] MEDS: HEPARIN SOD 5,000 UNIT/0.5 ML VIAL SQ SCH (10:04)
[2020-09-11] MEDS: OXcarbazepine 150 MG TABLET PO SCH (10:09)
[2020-09-11] MEDS: POTASSIUM CHLORIDE CRTAB 20 MEQ TABCR PO SCH (10:09)
[2020-09-11] MEDS: FERROUS SULFATE 325 MG TAB PO SCH (10:09)
[2020-09-11] MEDS: CHOLECALCIFEROL 1,000 UNITS 25 MCG TAB PO SCH (10:09)
[2020-09-11] MEDS: DULoxetine HCL 60 MG CAP PO SCH (10:09)
[2020-09-11] MEDS: PANTOprazole 40 MG TAB PO SCH (10:09)
[2020-09-11] MEDS: LIDOCAINE 5% 1 PATCH TD SCH (10:10)
[2020-09-11] MEDS: CHOLESTYRAMINE LIGHT 4 GM PKT PO SCH (10:10)
[2020-09-11] MEDS: SUCRALFATE 1 GM/10 ML UDC PO SCH ×2 (10:10→12:00)
--- NOTE | 2020-09-11 11:26 | Fluoroscopy Report ---
FL video swallow HISTORY: suspected aspiration TECHNIQUE: Video fluoroscopic evaluation of swallowing was performed in the AP and lateral projection s by the speech pathology staff. The patient is fed nectar-thick and thin liquid barium, a barium coa griselda wafer, and barium pudding. FLUOROSCOPY TIME: 1.9 minutes. A cine loop submitted. COMPARISON STUDY: None. FINDINGS: There is normal hyoid excursion and epiglottic deflection. No significant penetration or as piration identified. Swallowing function is within normal limits. Mild esophageal dysmotility. IMPRESSION: 1. No aspiration identified. 2. Please see the speech pathologist report for detailed findings and recommendations. ACT 112: Negative or not required by law. Electronically signed by: Marcell Marquez M.D. 09/11/2020 11:25 AM
[2020-09-11] MEDS: oxyCODONE HCL IR 5 MG TAB (IMMEDIATE RELEASE) PO PRN (11:59)
[2020-09-11 12:01] VITALS: TEMP 98.1
[2020-09-11] MEDS: SACCHAROMYCES BOULARDII 250 MG CAP PO SCH (13:35)
[2020-09-11 15:49] VITALS: PULSE 69; O2SAT 99
--- NOTE | 2020-09-11 16:46 | XRay Report ---
XR chest 1V portable CLINICAL HISTORY: reassess infiltrate from 09/07 COUGH COMPARISON STUDY: 09/07/2020 FINDINGS: The cardiac and mediastinal contours remain stable. The right-sided internal jugular centra l venous catheter has been removed. There is been marked improvement in the previously identified rig ht mid and lower lung zone airspace opacities. No definite effusions are visualized. There are equivo uma vague nodular airspace opacities at the left lung base.[ IMPRESSION: 1. Marked improvement in the previously identified right middle lower lung zone airspace opacities 2. Equivocal subtle left nodular airspace opacity at the left lung base. ACT 112: Negative or not required by law. Electronically signed by: Hank Coronado M.D. 09/11/2020 4:45 PM
--- NOTE | 2020-09-11 17:11 | Discharge Summary ---
Date of Service September 11, 2020 Admission HPI Per Admitting Provider This is a 64yo F with a PMH of DM II, dyslipidemia, CALI, asthma/COPD, bronchiectasis, HTN, CKD III who presents to the ED with worsening weakness and recurrent falls. Has had multiple falls of the same nature over the past few months and was admitted with similar symptoms last month. States that she becomes lightheaded, weak and like "her legs are giving out from under her" when she is ambulating to either sit or lie down. Denies head trauma or loss of consciousness. Admits to very poor appetite, which she attributes to side effects from medications. Also denies fluid intake due to fear of urinary incontinence occurring. Has not eaten anything all day today. Earlier today, she was walking to her bed when she felt weak and fell down. States that her hospice care transitions coordinator witnessed it and she came to ED for further evaluation. Continues to feel generally weak and fatigued. Does have history of O2 use at home but is no longer on that. Also with history of CALI and obesity hypoventilation syndrome but is noncompliant with CPAP. In ED, patient found to be afebrile. BP ranging from 60/37-98/59 but alert and oriented x 4. Has received 2L NSS while in ED. BSG of 70. WBC of 12.23 with lactic acid pending. Creatinine significantly elevated at 6.25 (1.48 during admission last week) with hyperkalemia of 5.7. Bicarb 19. UA abnormal. CT abd/pelvis with postsurgical changes of a subtotal colectomy with ileosigmoid anastomosis. No evidence of bowel obstruction. No evidence of free air. Bilateral nephrolithiasis. Persistent small staghorn calculus within a mildly dilated left renal pelvis. Denies any fever, chills, headache, productive cough, chest pain, palpitations, shortness of breath, abdominal pain, nausea, vomiting, dysuria, constipation or diarrhea. Discharge Data Allergies Allergy/AdvReac Type Severity Reaction Status Date / Time salicylates Allergy Severe SHORTNESS Verified 09/03/20 17:07 OF BREATH Iodinated Contrast Media Allergy Intermediate EYES Verified 09/03/20 17:07 SWELLING/Hives amoxicillin [From Augmentin] Allergy Mild Rash Verified 09/03/20 17:07 aspirin Allergy Mild FACIAL Verified 09/03/20 17:07 SWELLING clavulanic acid Allergy Mild Rash Verified 09/03/20 17:08 [From Augmentin] hydromorphone Allergy Mild RASH/ITCHIN Verified 09/03/20 17:08 G fentanyl Allergy itching/felt Verified 09/03/20 17:08 like throat closing meperidine AdvReac Intermediate ITCH Verified 09/03/20 17:08 morphine AdvReac Intermediate ITCH Verified 09/03/20 17:09 tramadol AdvReac Mild itch Verified 09/03/20 17:09 Consultations 09/03/20 18:17 ED Decision to Admit Stat 09/03/20 20:45 Consult Case Management - Discharge Planning Routine Consult Nephrology Routine 09/04/20 01:58 Consult Fisher Troll Line Routine 09/09/20 12:21 Consult Gastroenterology Routine Ordered Studies 09/03/20 16:19 CT cervical spine wo con Stat CT head/brain wo con Stat 09/03/20 17:42 CT abd pelvis wo con Stat 09/04/20 00:30 US point of care ultrasound Urgent 09/11/20 10:30 FL video swallow Routine Hospital Course (1) Chronic diarrhea: (2) Acute hypotension: Profound hypotension and acidosis in setting of acute renal failure with sepsis ruled out. She required pressor support and two sessions of HD and was intubated for a short time. She received stress dose steroids. She has recovered from this with all her recent treatments and BP is low normal. Will resume lisinopril per nephro recommendations. Chronic diarrhea She has been complaining of loose stools 4 or 5 times daily for the last few weeks We will send stool for C. difficile and also culture Stool has been negative for any C. difficile toxin Appreciate GI input and recommendation Extreme anxiety with increased shakiness since this morning Also complaining of abdominal discomfort and nausea Was given Phenergan, Maalox and Ativan as needed Remains anxious Shows much improvement Ongoing epigastric discomfort with nausea Has been on PPI intravenously twice daily and getting Maalox as needed We will add oral sucralfate and change Protonix to oral twice daily Her abdominal symptoms are better IV Protonix has been changed to p.o. twice daily GI consulted and appreciate their input (3) Acute renal failure: Creatinine significantly elevated at 6.25 (1.48 during admission last week) with hyperkalemia of 5.7. Bicarb 19 -Significant dehydration secondary to prolonged diarrhea with significant metabolic acidosis -Doubt any obstructive uropathy -Received 2 L bolus in ED, transitioning to bicarb drip -Given calcium gluconate for hyperkalemia. Giving 1/2 ampule of D50 prior to administration of IV insulin due to hypoglycemia -Appreciate nephrology input and recommendation -Has had dialysis -Creatinine has been improving and going to worse her baseline -We will continue current medications -No more hemodialysis needed and the dialysis catheter has been discontinued -Creatinine is minimally high today and the diuretic doses have been adjusted accordingly by director of business systems -PERRI resolved Severe metabolic acidosis on admission Required intravenous bicarb drip Hypokalemia and CO2 level has been up as of this morning Bicarb drip has been stopped Received hemodialysis Metabolic acidosis seems to be corrected (4) Recurrent falls: (5) Weakness: Has had multiple falls of the same nature over the past few months and was admitted with similar symptoms last month -Poor PO intake at home, renal failure, deconditioning -IV fluid resuscitation, fall precautions, PT/OT evaluation, discharge planning Will start PT and OT evaluation (6) Complicated UTI (urinary tract infection): -Nephrolithiasis with staghorn calculus in left pelvis -Possible sepsis secondary to UTI has been ruled out -Abnormal UA with urine, blood cultures pending. Continue empiric Rocephin and IV fluids -CT abd/pelvis with bilateral nephrolithiasis. Persistent small staghorn calculus within a mildly dilated left renal pelvis -Discussed findings with urology, who do not feel procedure is indicated since no strone is obstructing -Doubt any obstructive uropathy -Appreciate urology input and recommendation -Started on intravenous Rocephin and then changed to IV cefepime and daptomycin -Daptomycin has been discontinued by the arabic linguist -Urine culture has been growing yeast and blood cultures are negative -We will discontinue intravenous antibiotic after 3 days Nephrolithiasis Has been complaining of abdominal pain Has allergy to morphine and Dilaudid Reviewed the medical records and she got oxycodone and let 2019 Will try oral oxycodone to control pain Pain seems to be reasonably controlled with oral oxycodone (7) Depression: Appears depressed on exam with flattened affect, poor appetite. Continue duloxetine (8) DM type 2 (diabetes mellitus, type 2): -Hold home agents -SSI while in-patient -BSG AC HS -Glycemic pharmacist consulted (9) Obesity hypoventilation syndrome: The patient is a 64-year-old female who presented to the ER after a fall stating she did not feel well. She was found to have hypotension and fluid resuscitation was initiated. A chemistry panel revealed mild hyperkalemia but a significant elevation of her creatinine concerning for acute renal failure. Troponin and TSH were negative. An EKG revealed poor R wave progression but no ST elevation. Urinalysis revealed findings concerning for UTI. CT imaging of the head and neck as well as a chest x-ray and shoulder x-ray were negative for acute process. A CT scan of the abdomen pelvis was concerning with evidence of staghorn calculi with uroepithelial thickening. In light of her abnormal urinalysis this was concerning for infection. She was admitted to the hospitalist service and nephrology was consulted for acute renal failure with a creatinine of 6.25. Of note she had recently been hospitalized and her creati nine was 1.5 during the previous week. CT findings were discussed with urology who did not recommend any procedure to address the calculus present on imaging. Her hypotension persisted and she required vasopressor support and was transferred into the ICU. Broad-spectrum antibiotics with cefepime and daptomycin were continued in the setting of presumed sepsis which was later ruled out. The following day the arabic linguist placed a temporary central line for hemodialysis and she was dialyzed 09/04 and 09/05 per nephrology direction in the setting of profound acidosis, oliguria and shock. She clinically improved with dialysis over the next couple of days. The etiology of acute renal failure was thought due to ischemic ATN in the setting of sepsis. Urine culture grew yeast, and blood cultures were negative. Cefepime was discontinued after 3 days. Chronic diarrhea was present and a known issue for her as well as chronic abdominal pain. A C. difficile toxin was checked and negative. Discharge Plan Discharge Items Patient Disposition: Home - Home Health Services Reason For Visit: HYPOTENSION, ACUTE RENAL FAILURE Activity: Resume your previous activity Non-emergency contact: Primary Care Provider Call non-emergency contact if: you have any medication questions, your symptoms worsen, your pain is not controlled and you have a fever Follow-up/Referrals: Lo Chand DO [Primary Care Provider] - (Date & Time 09/17/2020 11:50 AM Provider Lo Chand DO Department Internal Medicine [facility] ) Diet: Carb Consistent or DM2 Addtl Attending Provider Instructions: Please take all medications as instructed on discharge list below. Please follow-up with your primary care provider at the date/time above. This visit is important to ensure you are still doing well after going home from the hospital. It was a pleasure taking care of you! Please call if you have any questions or problems. You can reach a [facility] hospitalist on duty at [facility] 24 hours a day by calling [phone]. Take care of yourself. Johanna Harris, DO [facility] Stand-Alone Forms: My [facility] Medications and DC Order Prescriptions: New metoprolol tartrate 25 mg tablet 25 mg PO BID Qty: 60 RF: 0 Cholestyramine Light 4 gram Powder In Packet 4 g PO DAILY@1000 Qty: 30 RF: 0 potassium chloride 20 mEq tablet extended release 20 meq PO DAILY Qty: 30 RF: 0 Continued albuterol sulfate 90 mcg/actuation Hfa Aerosol Inhaler 2 puff INHALATION Q4H PRN (Reason: Shortness Of Breath) RF: 0 magnesium oxide 400 mg magnesium Tablet 400 mg PO HS RF: 0 doxepin 100 mg capsule 100 mg PO HS RF: 0 ferrous sulfate 325 mg (65 mg iron) tablet 325 mg PO BID RF: 0 glipizide [Glucotrol XL] 2.5 mg tablet extended release 24hr 2.5 mg PO DAILY Qty: 30 RF: 3 Forteo 20 mcg/dose - 600 mcg/2.4 mL Pen Injector 20 mcg SUBCUT Q14D RF: 0 atorvastatin [Lipitor] 40 mg Tablet 40 mg PO QPM RF: 0 clopidogrel [Plavix] 75 mg Tablet 75 mg PO QPM RF: 0 pantoprazole [Protonix] 40 mg Tablet,Delayed Release (Dr/Ec) 40 mg PO BID RF: 0 gabapentin 300 mg Capsule 300 mg PO TID RF: 0 riboflavin (vitamin B2) 400 mg Tablet 400 mg PO QPM RF: 0 duloxetine 60 mg Capsule,Delayed Release(Dr/Ec) 60 mg PO QAM RF: 0 oxcarbazepine [Trileptal] 300 mg tablet 300 mg PO BID RF: 0 cholecalciferol (vitamin D3) [Vitamin D3] 2,000 unit Capsule 2,000 unit PO QAM RF: 0 lidocaine 5 % Adhesive Patch,Medicated 1 patch topical DAILY RF: 0 lisinopril 2.5 mg tablet 2.5 mg PO DAILY RF: 0 Saccharomyces boulardii [Florastor] 250 mg capsule 250 mg PO BID RF: 0 ondansetron 4 mg tablet,disintegrating 4 mg PO Q8H PRN (Reason: nausea and vomiting) RF: 0 Discontinued metoprolol succinate 50 mg tablet extended release 24 hr 75 mg PO BID RF: 0 Krames/Other Patient Handouts: Managing Type 2 Diabetes Admission Data Admit Date/Time: 09/03/20 19:25 Attending Provider: Johanna Harris Admit Provider: Danny Turner Primary Care Provider: Lo Chand Other Providers: Danny Turner ; Yunier Gresham ; Dylan Cohn ; Davion Hector [facility] ; Prachi Juan ; Pippa Barajas ; Junior Avila ; Kanchan Dubois ; Tez Quintana ; Betsy Rey ; Irma Kidd ; Kodak Banks ; Jaime Lyons ; Nury Mitchell ; Lucille Jaramillo ; Marisol Flores ; Beatriz Ace ; Venkat Thomas
[2020-09-11 18:07] VITALS: BP 97/60
== END 2020-09-11 18:42 | disposition home health service (06) | DRG 689 ==
LOC: ED 15:28 → SUATTDRO 19:25 → 2S 19:25 → 1E 09-04 00:12 → 2S 09-05 16:10
DX: E86.0 Dehydration; F32.9 Major depressive disorder, single episode, unspecified; E87.6 Hypokalemia; Z88.1 Allergy status to other antibiotic agents; R29.6 Repeated falls; E87.5 Hyperkalemia; E78.5 Hyperlipidemia, unspecified; N39.0 Urinary tract infection, site not specified; E11.22 Type 2 diabetes mellitus with diabetic chronic kidney disease; Z91.041 Radiographic dye allergy status; Z85.038 Personal history of other malignant neoplasm of large intestine; I12.9 Hypertensive chronic kidney disease with stage 1 through stage 4 chronic kidney disease, or unspecified chronic kidney disease; Y92.89 Other specified places as the place of occurrence of the external cause; N18.30 Chronic kidney disease, stage 3 unspecified; I25.2 Old myocardial infarction; S43.401A Unspecified sprain of right shoulder joint, initial encounter; Z68.41 Body mass index [BMI] 40.0-44.9, adult; Z88.5 Allergy status to narcotic agent; K44.9 Diaphragmatic hernia without obstruction or gangrene; Z86.718 Personal history of other venous thrombosis and embolism; I95.89 Other hypotension; S16.1XXA Strain of muscle, fascia and tendon at neck level, initial encounter; J45.909 Unspecified asthma, uncomplicated; Z79.02 Long term (current) use of antithrombotics/antiplatelets; J47.9 Bronchiectasis, uncomplicated; N17.0 Acute kidney failure with tubular necrosis; E87.2 Acidosis; N20.0 Calculus of kidney; R19.7 Diarrhea, unspecified; E66.2 Morbid (severe) obesity with alveolar hypoventilation; W19.XXXA Unspecified fall, initial encounter

== ENCOUNTER 2020-10-04 13:47 | Inpatient (IN) ==
[2020-10-04] MEDS ORDERED: ACETAMINOPHEN 1,000 MG/100 ML VIAL IV STA (14:29)
[2020-10-04] MEDS ORDERED: SODIUM CHLORIDE 0.9% 500 ML IV ONE ×2 (14:31→16:17)
--- NOTE | 2020-10-04 14:36 | Emergency Department Note ---
Impression & Plan COVID-19, Acute renal failure, Acute hyperkalemia, Metabolic acidosis ED Provider Note NAME: NAYELI GUERRERO AGE: 64 SEX: F ARRIVES VIA: Ambulance INFORMANT: Patient, ED PROVIDER(S): Sanjeev Moise MD CHIEF COMPLAINT: Left flank pain PLAN: Disposition: Admit MEDICAL DECISION MAKING: The patient is a 64-year-old woman with a complicated past medical history of hypertension, hyperlipidemia, CAD on plavix, CKD, recent complicated history of acute renal failure briefly on dialysis at the end of August followed by hospitalization at the beginning of September for left-sided renal hemorrhage from ruptured cyst after a fall with ARF with Cr. 4 and was life flighted to [place] due to hemodynamic instability and need for IR consultation who presents emergency department with complaints of continued left flank pain that she reports did not resolve since her last ED visit and transfer though she feels has gotten worse over the past couple of days. She reports having diarrhea over the past week but denies having had this previously. She denies any fevers, chills, cough, congestion, shortness of breath. She reports nausea and decreased appetite and oral intake in additional to diarrhea that is nonbloody/nonblack. She denies any known Covid19 exposures other than her hospitalization and home nursing. Of note, review of her [facility] admission documents resolution of ARF with IVF and did not require HD or surgical intervention for renal cyst hemorrhage. EKG without overt acute ischemia. No hyperacute TW or bradyarrhythmias. CXR negative for acute cardiopulmonary process, with healing left sided rib fractures noted. WBC, H/H and platelets within normal limits. Chemistry does exhibit acidosis with bicarb of 14 but normal anion gap. Creatinine is acutely elevated at 9.9 which is increased from 1.1 on 09/25 and [facility]. Potassium is also acutely elevated at 6.9 however there are no hyperacute T waves or bradyarrhythmias on EKG. Phosphorus is 6.2 and electrolytes otherwise unremarkable. Troponin negative/undetectable. Lipase marginally elevated and nonspecific. UA with epithelial cells albeit with WBCs and so given the patient's acute renal failure was treated empirically for UTI with Rocephin. Additionally administered calcium and insulin with D50. Kayexalate was initially ordered but then canceled and exchanged for Partiromer (Veltassa) per nephrology recommendations below. Results reviewed with patient and she agrees with admission. She remained hemodynamically stable and tolerated initial 500cc NSS bolus well. Case was discussed with Dr. Modi, [facility] hospitalist, who evaluate the patient for admission. Case was reviewed with [facility] Nephrology on-call, Dr. Leslie, and agrees that given the patient is making urine and hemodynamically stable can proceed with medical management to assess responsiveness to treatment before consideration of dialysis. He recommends Partiromer (Veltassa) over Kayexalate. Additionally recommends 1 x forced diuresis with 40 mg of Lasix given the patient is not hypotensive. Additionally recommends sodium bicarb drip at 100 cc/h x 1 L followed by maintenance fluids of sodium chloride at 100 cc/h. Likely repeat insulin with plan to recheck potassium and reassess responsiveness. Dr. Modi was updated on recommendations. Of note, the patien t's COVID-19 RNA, NAAT test did result positive and so this may have been a provoking factor to the patient's decreased oral intake and subsequent acute renal failure. Triage Nursing notes reviewed and agree them. Additional history obtained from [facility] records. Prior medical records reviewed Vital Signs: reviewed and remarkable for tachycardia. Differential diagnosis: Renal colic, UTI, appendicitis, diverticulitis, mesenteric ischemia, aortic pathology, infections, inflammatory bowel disease, PUD, biliary pathology, as well as other pathologies. ER treatment provided: See below. Diagnostics interpreted by me: ECG: Sinus tachycardia, 115 bpm (machine double counted beats), no ectopy, no overt ST elevation or depression. Cardiac Monitoring: An order for continuous cardiac monitoring was placed and demonstrated Sinus tachycardia, 115 bpm, no ectopy. Laboratory studies: See below Imaging studies: XR chest 1V portable CLINICAL HISTORY: Atypical chest pain. COMPARISON STUDY: Chest CT September 17, 2020. FINDINGS: Lung volumes are normal. There is no pneumothorax or pleural effusion. No consolidation is present. Several healing left lower rib fractures are better depicted on the CT of the abdomen and pelvis which was performed earlier today. Cardiac size is normal. A hiatal hernia is again noted. IMPRESSION: 1. No pneumothorax. 2. Several healing left lower rib fractures which are better depicted on the CT of the abdomen and pelvis which was performed earlier today. 3. Hiatal hernia. ACT 112: Negative or not required by law. CT OF THE ABDOMEN AND PELVIS WITHOUT CONTRAST CLINICAL HISTORY: Left flank pain. COMPARISON STUDY: CT of the abdomen and pelvis September 17, 2020 TECHNIQUE: Axial images of the abdomen and pelvis were obtained without IV contrast. Images were reviewed in the axial, sagittal, and coronal planes. Automated exposure control was utilized for the study. A dose lowering technique was utilized adhering to the principles of ALARA. FINDINGS: Visualized portions of the lower chest demonstrate a moderate-sized hiatal hernia. Note is made of healing fractures of the left seventh through 11th ribs. There is mild callus formation. These are likely subacute. No acute lumbar spine or pelvic fracture is identified. Dilatation of the left renal pelvis is unchanged. Calculi within the left renal pelvis measure up to 1.8 cm. No ureteral calculi are present. Mild urothelial thickening is again noted within the left renal pelvis. This is unchanged. The previously described left renal cyst has decreased in size since prior exam. This now measures 5.7 cm. Hemorrhage within the cyst has nearly completely resolved. Adjacent hemorrhage has resolved. Right renal calculus is noted. A probable cyst within lower pole the right kidney is noted. Evaluation of the abdomen and pelvis is suboptimal on this unenhanced exam. There is no significant biliary ductal dilatation status post cholecystectomy. The spleen, adrenal glands and pancreas are unremarkable. Is no peripancreatic infiltration. Umbilical hernia contains a loop of bowel. There is no resultant bowel obstruction. Postoperative findings consistent with subtotal colectomy are noted. No pneumatosis, free air or portal venous gas is present. There is no lymphadenopathy or ascites. IMPRESSION: 1. Near complete resolution of hemorrhage within the left renal cyst on CT of September 17, 2020. Adjacent hemorrhage has resolved. 2. Subacute healing fractures of the left seventh through 11th ribs. 3. Status post subtotal colectomy. No bowel obstruction. 4. Redemonstration of multiple calculi within a chronically dilated left renal pelvis. No ureteral calculi. ACT 112: Negative or not required by law. Consultation(s): Dr. Leslie, [facility] on-call. Dr. Modi, [facility] hospitalist. HPI: The patient is a 64-year-old woman with a complicated past medical history of hypertension, hyperlipidemia, CAD, recent complicated history of acute renal failure briefly on dialysis followed by hospitalization at the beginning of September for left-sided renal hemorrhage from ruptured cyst after a fall life flighted to [place] due to hemodynamic instability and need for IR consultation who presents emergency department with complaints of continued left flank pain that she reports did not resolve since her last ED visit and transfer though she feels has gotten worse over the past couple of days. She reports having diarrhea over the past week but denies having had this previously. She denies any fevers, chills, cough, congestion, shortness of breath. She reports nausea and decreased appetite and oral intake in additional to diarrhea that is nonbloody/nonblack. She denies any known Covid19 exposures other than her hospitalization and home nursing. Of note, review of her [facility] admission documents resolution of ARF with IVF and did not require HD or surgical intervention for r enal cyst hemorrhage. ROS: See above HPI for pertinent positives & negatives. A total of 10 systems reviewed and were otherwise negative. PAST MEDICAL HISTORY:See Below PAST SURGICAL HISTORY:See Below FAMILY HISTORY:See Below SOCIAL HISTORY:See Below HOME MEDICATIONS:See Below ALLERGIES:See Below VITALS:See Below PHYSICAL EXAMINATION: GENERAL: Awake, alert, acute on chronically ill-appearing, in no distress. BMI 38.5. HENT: Normocephalic, atraumatic. Oropharynx with dry mucous membranes and otherwise unremarkable. EYES: Normal conjunctiva. Sclera non-icteric. NECK: Supple. No nuchal rigidity. FROM. No JVD. RESPIRATORY: Clear to auscultation. CARDIAC: Tachycardic rate, normal rhythm. Extremities warm and well perfused. Pulses equal. ABDOMEN: Soft, non-distended. Left upper abdominal/flank tenderness to palpation. No rebound or guarding. No masses. RECTAL: Deferred. MUSCULOSKELETAL: Chest examination reveals no tenderness. The back is symmetrical on inspection without obvious abnormality. There is no CVA tenderness to palpation. No joint edema. LOWER EXTREMITIES: Calves are equal size bilaterally and non-tender. No edema. No discoloration. NEURO: Normal sensorium. No sensory or motor deficits noted. SKIN: No rash or jaundice noted. ED COURSE: Critical Care: I have personally spent greater than 115 minutes of critical care time in the direct management of this patient. This includes bedside care, interpretation of diagnostic studies, and testing, discussion with consultants, patient, and family members, and other required patient management activities. This 115 minutes is in excess of all separately billable procedures. Sanjeev Moise MD Past Med/Surg History Medical History Acute hypotension Acute strain of neck muscle Acute UTI (urinary tract infection) Anxiety Asthma Asthma CHF (congestive heart failure) Chronic back pain Chronic headaches Chronic renal insufficiency stage 3, following with [facility] nephrology ([place]) CKD (chronic kidney disease), stage III COPD (chronic obstructive pulmonary disease) Deep vein thrombosis LLE - COULD NOT RECALL DATE - REPORTS SHE WAS TREATED AT [facility] W/ BLOOD THINNERS Degenerative disc disease Depression Depression Diabetes mellitus, type 2 Fever GERD (gastroesophageal reflux disease) GERD (gastroesophageal reflux disease) Gram negative septicemia History of colon cancer 2012 S/P BOWEL RESECTION. History of esophageal dilatation HLD (hyperlipidemia) HTN (hypertension) Hyperlipidemia Hypertension Kidney stones Lethargy Morbid obesity with BMI of 40.0-44.9, adult Myocardial Infarction 03/2018--> [facility] -- CARDIAC CATH --> NO STENTS/ANGIOPLASTY PER PT REPORT -- POOR HISTORIAN? REPORTS SHE IS ON PLAVIX FOR HEART - DENIES STENTS - DENIES ARRHYTHMIA - FOLLOWS W/ DR. TORRES On anticoagulant therapy plavix daily On home oxygen therapy 2L N/C at all times - states MD stopped this, patient states she is no longer using Osteoarthritis Osteoarthritis Poor historian Pyelonephritis Renal calculi Right shoulder strain Seizure pt states "i think i had them a long time ago". no other information. Sepsis Tachycardia Weakness Surgical History H/O hand surgery RIGHT History of appendectomy History of bilateral cataract extraction History of blepharoplasty History of bowel resection d/t colon cancer History of cardiac cath 03/2018 - [facility] - DENIES STENTS/ANGIOPLASTY - [facility] - FOLLOWS W/ DR. TORRES History of colectomy "due to colon cancer" History of colonoscopy History of cystoscopy History of esophagogastroduodenoscopy (EGD) History of hysterectomy History of kidney surgery at age 9 yrs "something was wrong and had to fix it" History of lithotripsy History of tooth extraction History of total abdominal hysterectomy and bilateral salpingo-oophorectomy Hx of cholecystectomy S/P cholecystectomy Family History Other Breast cancer Social History Smoking Status: Never smoker Second Hand Exposure: No; Hx Alcohol Use: No Hx Substance Use: No Preferred Language: Serbian Communication Ability: Effective Pharmacy Laboratory Technician Required: No Beliefs That Will Affect Care: None marital status: Current Living Situation: Spouse Current Living Situation Comment: [place] Other Information That Helps Us Care for You: No Feels Safe at Home: Yes Assistive Devices: Walker Allergies Allergies Allergy/AdvReac Type Severity Reaction Status Date / Time salicylates Allergy Severe SHORTNESS Verified 09/17/20 13:00 OF BREATH Iodinated Contrast Media Allergy Intermediate EYES Verified 09/17/20 13:00 SWELLING/Hives amoxicillin [From Augmentin] Allergy Mild Rash Verified 09/17/20 13:00 aspirin Allergy Mild FACIAL Verified 09/17/20 13:00 SWELLING clavulanic acid Allergy Mild Rash Verified 09/17/20 13:00 [From Augmentin] hydromorphone Allergy Mild RASH/ITCHIN Verified 09/17/20 13:00 G fentanyl Allergy itching/felt Verified 09/17/20 13:00 like throat closing meperidine AdvReac Intermediate ITCH Verified 09/17/20 13:00 morphine AdvReac Intermediate ITCH Verified 09/17/20 13:00 tramadol AdvReac Mild itch Verified 09/17/20 13:00 Home Meds Home Medications Medication Instructions Recorded Confirmed atorvastatin [Lipitor] 40 mg PO QPM 07/12/18 10/04/20 clopidogrel [Plavix] 75 mg PO QPM 07/12/18 10/04/20 pantoprazole [Protonix] 40 mg PO BID 07/12/18 10/04/20 riboflavin (vitamin B2) 400 mg PO QPM 07/12/18 10/04/20 duloxetine 60 mg PO QAM 10/16/18 10/04/20 cholecalciferol (vitamin D3) 2,000 unit PO QAM 05/16/19 10/04/20 [Vitamin D3] oxcarbazepine [Trileptal] 300 mg PO BID 05/16/19 10/04/20 albuterol sulfate 2 puff INHALATION Q4H PRN 07/21/19 10/04/20 magnesium oxide 400 mg PO HS 10/05/19 10/04/20 doxepin 100 mg PO HS 11/30/19 10/04/20 Forteo 20 mcg SUBCUT DAILY 05/06/20 10/04/20 Saccharomyces boulardii [Florastor] 250 mg PO BID 08/17/20 10/04/20 lisinopril 2.5 mg PO QPM 08/17/20 10/04/20 ondansetron 4 mg PO Q8H PRN 08/17/20 10/04/20 acetaminophen 650 mg PO Q8H PRN 10/04/20 10/04/20 cholestyramine-aspartame 4 g PO BIDM 10/04/20 10/04/20 [Cholestyramine Light] metoprolol succinate 25 mg PO TID 10/04/20 10/04/20 Previous Rx's Medication Instructions Recorded glipizide [Glucotrol XL] 2.5 mg PO DAILY #30 tab 02/12/20 potassium chloride 20 meq PO DAILY #30 tab 09/11/20 Results & Data (ED) Vital Signs Vital Signs - 24 hr 10/04/20 13:57 10/04/20 13:58 10/04/20 14:00 Temperature Temperature Source Pulse Rate 130 H 121 H 122 H Pulse Rate from SpO2 Sensor 127 H Pulse Rhythm Respiratory Rate 20 24 25 H Respiratory Effort / Characteristics Respiratory Depth Respiratory Pattern Blood Pressure 174/153 H Blood Pressure Mean 169 Pulse Oximetry 95 Oxygen Delivery Method Sepsis Recent Fever Within 48 Hours Sepsis New/Unexplained Change in Mental Status Sepsis Action Taken by Nursing 10/04/20 14:05 10/04/20 14:10 10/04/20 14:20 Temperature 36.9 C Temperature Source Oral Pulse Rate 119 H 119 H 117 H Pulse Rate from SpO2 Sensor 120 H 118 H Pulse Rhythm Regular Respiratory Rate 20 25 H 20 Respiratory Effort / Characteristics Non-Labored Spontaneous Respiratory Depth Normal Respiratory Pattern Regular Blood Pressure 103/75 Blood Pressure Mean 98 Pulse Oximetry 95 97 Oxygen Delivery Method Room Air Sepsis Recent Fever Within 48 Hours No Sepsis New/Unexplained Change in Mental Status No Sepsis Action Taken by Nursing Physician Notified 10/04/20 14:24 10/04/20 14:30 10/04/20 14:31 Temperature Temperature Source Pulse Rate 120 H 118 H Pulse Rate from SpO2 Sensor 121 H 118 H Pulse Rhythm Respiratory Rate 16 21 Respiratory Effort / Characteristics Respiratory Depth Respiratory Pattern Blood Pressure 109/83 Blood Pressure Mean 100 Pulse Oximetry 96 97 98 Oxygen Delivery Method Room Air Sepsis Recent Fever Within 48 Hours Sepsis New/Unexplained Change in Mental Status Sepsis Action Taken by Nursing 10/04/20 14:47 10/04/20 14:50 10/04/20 15:00 Temperature Temperature Source Pulse Rate 118 H 117 H 117 H Pulse Rate from SpO2 Sensor 118 H 117 H 117 H Pulse Rhythm Respiratory Rate 23 30 H 18 Respiratory Effort / Characteristics Respiratory Depth Respiratory Pattern Blood Pressure 105/69 Blood Pressure Mean 86 Pulse Oximetry 98 96 97 Oxygen Delivery Method Sepsis Recent Fever Within 48 Hours Sepsis New/Unexplained Change in Mental Status Sepsis Action Taken by Nursing 10/04/20 15:01 10/04/20 15:10 10/04/20 15:20 Temperature Temperature Source Pulse Rate 117 H 120 H Pulse Rate from SpO2 Sensor 116 H 121 H 293 H Pulse Rhythm Respiratory Rate 20 19 15 Respiratory Effort / Characteristics Respiratory Depth Respiratory Pattern Blood Pressure Blood Pressure Mean Pulse Oximetry 95 96 94 Oxygen Delivery Method Sepsis Recent Fever Within 48 Hours Sepsis New/Unexplained Change in Mental Status Sepsis Action Taken by Nursing 10/04/20 15:30 10/04/20 15:31 10/04/20 15:40 Temperature Temperature Source Pulse Rate 117 H 117 H 117 H Pulse Rate from SpO2 Sensor 115 H 116 H Pulse Rhythm Respiratory Rate 18 12 24 Respiratory Effort / Characteristics Respiratory Depth Respiratory Pattern Blood Pressure 103/73 Blood Pressure Mean 83 Pulse Oximetry 97 93 Oxygen Delivery Method Sepsis Recent Fever Within 48 Hours Sepsis New/Unexplained Change in Mental Status Sepsis Action Taken by Nursing 10/04/20 15:50 10/04/20 16:00 10/04/20 16:01 Temperature Temperature Source Pulse Rate 109 H 108 H 110 H Pulse Rate from SpO2 Sensor 110 H 110 H 112 H Pulse Rhythm Respiratory Rate 21 20 18 Respiratory Effort / Characteristics Respiratory Depth Respiratory Pattern Blood Pressure 104/75 Blood Pressure Mean 82 Pulse Oximetry 95 100 95 Oxygen Delivery Method Sepsis Recent Fever Within 48 Hours Sepsis New/Unexplained Change in Mental Status Sepsis Action Taken by Nursing 10/04/20 16:10 10/04/20 16:20 10/04/20 16:30 Temperature Temperature Source Pulse Rate 109 H 109 H 106 H Pulse Rate from SpO2 Sensor 109 H 109 H 107 H Pulse Rhythm Respiratory Rate 19 17 15 Respiratory Effort / Characteristics Respiratory Depth Respiratory Pattern Blood Pressure Blood Pressure Mean Pulse Oximetry 96 96 96 Oxygen Delivery Method Sepsis Recent Fever Within 48 Hours Sepsis New/Unexplained Change in Mental Status Sepsis Action Taken by Nursing 10/04/20 16:32 10/04/20 16:35 10/04/20 16:40 Temperature Temperature Source Pulse Rate 105 H 109 H 116 H Pulse Rate from SpO2 Sensor 107 H 106 H 112 H Pulse Rhythm Respiratory Rate 17 20 27 H Respiratory Effort / Characteristics Respiratory Depth Respiratory Pattern Blood Pressure 56/45 L 85/44 L Blood Pressure Mean 49 46 80 Pulse Oximetry 98 92 100 Oxygen Delivery Method Sepsis Recent Fever Within 48 Hours Sepsis New/Unexplained Change in Mental Status Sepsis Action Taken by Nursing 10/04/20 16:41 10/04/20 16:42 10/04/20 16:50 Temperature Temperature Source Pulse Rate 114 H 132 H 121 H Pulse Rate from SpO2 Sensor 112 H 116 H 121 H Pulse Rhythm Respiratory Rate 21 28 H 22 Respiratory Effort / Characteristics Respiratory Depth Respiratory Pattern Blood Pressure 143/76 H Blood Pressure Mean 81 Pulse Oximetry 97 98 95 Oxygen Delivery Method Sepsis Recent Fever Within 48 Hours Sepsis New/Unexplained Change in Mental Status Sepsis Action Taken by Nursing 10/04/20 17:00 10/04/20 17:01 10/04/20 17:10 Temperature Temperature Source Pulse Rate 106 H 124 H 124 H Pulse Rate from SpO2 Sensor 118 H 125 H 127 H Pulse Rhythm Respiratory Rate 20 17 19 Respiratory Effort / Characteristics Respiratory Depth Respiratory Pattern Blood Pressure 94/56 L Blood Pressure Mean 63 Pulse Oximetry 98 98 97 Oxygen Delivery Method Sepsis Recent Fever Within 48 Hours Sepsis New/Unexplained Change in Mental Status Sepsis Action Taken by Nursing 10/04/20 17:20 10/04/20 17:30 10/04/20 17:31 Temperature Temperature Source Pulse Rate 127 H 133 H 134 H Pulse Rate from SpO2 Sensor 131 H 134 H 136 H Pulse Rhythm Respiratory Rate 20 23 22 Respiratory Effort / Characteristics Respiratory Depth Respiratory Pattern Blood Pressure Blood Pressure Mean 81 Pulse Oximetry 96 85 L 98 Oxygen Delivery Method Sepsis Recent Fever Within 48 Hours Sepsis New/Unexplained Change in Mental Status Sepsis Action Taken by Nursing 10/04/20 17:40 10/04/20 17:50 10/04/20 17:55 Temperature Temperature Source Pulse Rate 132 H 129 H 136 H Pulse Rate from SpO2 Sensor 129 H 136 H Pulse Rhythm Respiratory Rate 28 H 21 22 Respiratory Effort / Characteristics Respiratory Depth Respiratory Pattern Blood Pressure 116/84 Blood Pressure Mean 90 Pulse Oximetry 97 98 Oxygen Delivery Method Sepsis Recent Fever Within 48 Hours Sepsis New/Unexplained Change in Mental Status Sepsis Action Taken by Nursing 10/04/20 18:00 10/04/20 18:01 10/04/20 18:10 Temperature Temperature Source Pulse Rate 135 H 131 H 127 H Pulse Rate from SpO2 Sensor 153 H 133 H 146 H Pulse Rhythm Respiratory Rate 25 H 19 17 Respiratory Effort / Characteristics Respiratory Depth Respiratory Pattern Blood Pressure 120/89 Blood Pressure Mean 91 Pulse Oximetry 94 98 92 Oxygen Delivery Method Sepsis Recent Fever Within 48 Hours Sepsis New/Unexplained Change in Mental Status Sepsis Action Taken by Nursing 10/04/20 18:20 Temperature Temperature Source Pulse Rate 126 H Pulse Rate from SpO2 Sensor 123 H Pulse Rhythm Respiratory Rate 21 Respiratory Effort / Characteristics Respiratory Depth Respiratory Pattern Blood Pressure Blood Pressure Mean Pulse Oximetry 95 Oxygen Delivery Method Sepsis Recent Fever Within 48 Hours Sepsis New/Unexplained Change in Mental Status Sepsis Action Taken by Nursing Laboratory Data Attestation: I reviewed the patient's lab results. Result diagrams: 10/04/20 15:07 10/04/20 15:07 Lab Results 10/04/20 10/04/20 10/04/20 Range/Units 14:15 14:28 14:28 WBC (4.8-10.8) K/uL RBC (4.2-5.4) M/uL Hgb (12.0-16.0) g/dL Hct (37-47) % MCV (80-100) fL MCH (25-34) pg MCHC (32-36) g/dL RDW Std Deviation (36.4-46.3) fL RDW Coeff of Teresa (11.5-14.5) % Plt Count (130-400) K/uL MPV (7.4-10.4) fL Immature Gran % (Auto) % Neut % (Auto) % Lymph % (Auto) % Tift % (Auto) % Eos % (Auto) % Baso % (Auto) % Neut # (Auto) (1.4-6.5) K/uL Lymph # (Auto) (1.2-3.4) K/uL Tift # (Auto) (0.11-0.59) K/uL Eos # (Auto) (0-0.5) K/uL Baso # (Auto) (0-0.2) K/uL Immature Gran # (Auto) (0.00-0.02) K/uL PT (9.0-12.0) Seconds INR (0.9-1.1) APTT (21.0-31.0) Seconds PTT Ratio Sodium (136-145) mmol/L Potassium (3.5-5.1) mmol/L Chloride (98-107) mmol/L Carbon Dioxide (21-32) mmol/L Anion Gap (3-11) BUN (7-18) mg/dl Creatinine (0.6-1.2) mg/dl Est Cr Clr Drug Dosing ml/min Est GFR ( Amer) Est GFR (Non-Af Amer) BUN/Creatinine Ratio (10-20) Glucose (70-99) mg/dl Calcium (8.5-10.1) mg/dl Phosphorus (2.5-4.9) mg/dl Magnesium (1.8-2.4) mg/dl Total Bilirubin (0.2-1) mg/dl Direct Bilirubin (0-0.2) mg/dl AST (15-37) U/L ALT (12-78) U/L Alkaline Phosphatase (45-117) U/L Troponin I (0-0.045) ng/ml Total Protein (6.4-8.2) gm/dl Albumin (3.4-5.0) gm/dl Globulin (2.5-4.0) gm/dl Albumin/Globulin Ratio (0.9-2) Lipase (73-393) U/L Urine Color Dark Yellow Urine Appearance Turbid A (Clear) Urine pH 5.0 (4.5-7.5) Ur Specific [place] 1.029 (1.000-1.030) Urine Protein 3+ H (Negative) Urine Glucose (UA) Negative (Negative) Urine Ketones Trace H (Negative) Urine Blood 2+ H (Negative) Urine Nitrite Negative (Negative) Urine Bilirubin Negative (Negative) Urine Urobilinogen Negative (Negative) Ur Leukocyte Esterase 3+ H (Negative) Urine WBC (Auto) >30 H (0-5) /hpf Urine RBC (Auto) 5-10 H (0-4) /hpf U Hyaline Cast (Auto) 0 (0-5) /lpf U Epithel Cells (Auto) >30 H (0-5) /lpf Urine Bacteria (Auto) Negative (Negative) Urine Yeast Budding A (None Prsent) COVID-19 Eval Order Covid19 [facility] SARS-CoV-2, RNA, NAAT POSITIVE A* (NEGATIVE) 10/04/20 10/04/20 10/04/20 Range/Units 15:07 15:07 15:07 WBC 9.08 (4.8-10.8) K/uL RBC 4.63 (4.2-5.4) M/uL Hgb 14.1 (12.0-16.0) g/dL Hct 45.6 (37-47) % MCV 98.5 (80-100) fL MCH 30.5 (25-34) pg MCHC 30.9 L (32-36) g/dL RDW Std Deviation 52.4 H (36.4-46.3) fL RDW Coeff of Teresa 14.5 (11.5-14.5) % Plt Count 389 (130-400) K/uL MPV 11.9 H (7.4-10.4) fL Immature Gran % (Auto) 0.7 % Neut % (Auto) 67.2 % Lymph % (Auto) 13.4 % Tift % (Auto) 17.4 % Eos % (Auto) 0.7 % Baso % (Auto) 0.6 % Neut # (Auto) 6.11 (1.4-6.5) K/uL Lymph # (Auto) 1.22 (1.2-3.4) K/uL [place] # (Auto) 1.58 H (0.11-0.59) K/uL Eos # (Auto) 0.06 (0-0.5) K/uL Baso # (Auto) 0.05 (0-0.2) K/uL Immature Gran # (Auto) 0.06 H (0.00-0.02) K/uL PT 11.2 (9.0-12.0) Seconds INR 1.1 (0.9-1.1) APTT 26.8 (21.0-31.0) Seconds PTT Ratio 1.0 Sodium 137 (136-145) mmol/L Potassium 6.9 H* (3.5-5.1) mmol/L Chloride 112 H (98-107) mmol/L Carbon Dioxide 14 L (21-32) mmol/L Anion Gap 11.0 (3-11) BUN 61 H (7-18) mg/dl Creatinine 9.97 H* (0.6-1.2) mg/dl Est Cr Clr Drug Dosing 5.1 ml/min Est GFR ( Amer) 4.2 Est GFR (Non-Af Amer) 3.6 BUN/Creatinine Ratio 6.1 L (10-20) Glucose 116 H (70-99) mg/dl Calcium 9.6 (8.5-10.1) mg/dl Phosphorus 6.2 H (2.5-4.9) mg/dl Magnesium 1.9 (1.8-2.4) mg/dl Total Bilirubin 0.3 (0.2-1) mg/dl Direct Bilirubin < 0.1 (0-0.2) mg/dl AST 21 (15-37) U/L ALT 27 (12-78) U/L Alkaline Phosphatase 262 H (45-117) U/L Troponin I < 0.015 (0-0.045) ng/ml Total Protein 9.0 H (6.4-8.2) gm/dl Albumin 4.0 (3.4-5.0) gm/dl Globulin 5.0 H (2.5-4.0) gm/dl Albumin/Globulin Ratio 0.8 L (0.9-2) Lipase 578 H (73-393) U/L Urine Color Urine Appearance (Clear) Urine pH (4.5-7.5) Ur Specific [place] (1.000-1.030) Urine Protein (Negative) Urine Glucose (UA) (Negative) Urine Ketones (Negative) Urine Blood (Negative) Urine Nitrite (Negative) Urine Bilirubin (Negative) Urine Urobilinogen (Negative) Ur Leukocyte Esterase (Negative) Urine WBC (Auto) (0-5) /hpf Urine RBC (Auto) (0-4) /hpf U Hyaline Cast (Auto) (0-5) /lpf U Epithel Cells (Auto) (0-5) /lpf Urine Bacteria (Auto) (Negative) Urine Yeast (None Prsent) COVID-19 Eval Order SARS-CoV-2, RNA, NAAT (NEGATIVE) Administered Medications Sodium Bicarbonate 100 meq/ (Dextrose) 1,100 mls @ 100 mls/hr IV .Q11H MARLA Stop: 11/03/20 17:44 Last Admin: 10/04/20 18:00 Dose: 100 mls/hr Documented by: [id number] Discontinued Medications Dextrose (Dextrose 50% 50 Ml Syringe) 100 ml IV NOW ONE Stop: 10/04/20 16:13 Last Admin: 10/04/20 16:39 Dose: 100 ml Documented by: [id number] Furosemide (Furosemide 40 Mg/4 Ml Vial) 40 mg IV NOW STA Stop: 10/04/20 17:34 Last Admin: 10/04/20 17:54 Dose: 40 mg Documented by: [id number] Acetaminophen (Ofirmev) 1,000 mg in 100 mls @ 400 mls/hr IV NOW STA Stop: 10/04/20 14:43 Last Infusion: 10/04/20 16:23 Dose: 0 mls/hr Documented by: [id number] Admin: 10/04/20 15:37 Dose: 400 mls/hr Documented by: [id number] Sodium Chloride (Nss) 500 mls @ 999 mls/hr IV .Q31M ONE Stop: 10/04/20 15:01 Last Infusion: 10/04/20 16:23 Dose: 0 mls/hr Documented by: [id number] Admin: 10/04/20 15:37 Dose: 999 mls/hr Documented by: [id number] Calcium Gluconate 2,000 mg/ (Sodium Chloride) 70 mls @ 240 mls/hr IV NOW ONE Stop: 10/04/20 16:29 Last Infusion: 10/04/20 17:08 Dose: 0 mls/hr Documented by: [id number] Admin: 10/04/20 16:40 Dose: 240 mls/hr Documented by: [id number] Prochlorperazine (Compazine) 1 mls @ 1 mls/min IV ONE ONE Stop: 10/04/20 16:17 Last Admin: 10/04/20 16:39 Dose: 1 mls/min Documented by: [id number] Famotidine (Pepcid 20mg Iv Push) 20 mg in 5 mls @ 2.5 mls/min IV NOW STA Stop: 10/04/20 16:17 Last Admin: 10/04/20 16:39 Dose: 2.5 mls/min Documented by: [id number] Sodium Chloride (Nss) 500 mls @ 999 mls/hr IV .Q31M ONE Stop: 10/04/20 16:47 Last Infusion: 10/04/20 17:11 Dose: 0 mls/hr Documented by: [id number] Admin: 10/04/20 16:40 Dose: 999 mls/hr Documented by: [id number] Ceftriaxone Sodium (Rocephin) 2,000 mg in 70 mls @ 140 mls/hr IV NOW STA Stop: 10/04/20 16:46 Last Infusion: 10/04/20 17:11 Dose: 0 mls/hr Documented by: [id number] Admin: 10/04/20 16:39 Dose: 140 mls/hr Documented by: [id number] Prochlorperazine 5 mg/ Syringe 5 mls @ 5 mls/min IV ONE ONE Stop: 10/04/20 17:34 Last Admin: 10/04/20 17:51 Dose: 5 mls/min Documented by: [id number] Insulin Human Regular (Novolin-R Insulin Per Unit Charge) 10 units IV NOW STA Stop: 10/04/20 16:13 Last Admin: 10/04/20 16:40 Dose: 10 units Documented by: [id number] Cosigned by: [id number] Miscellaneous (Stat Iv) 1 ea N/A NOW STA Stop: 10/04/20 17:42 Last Admin: 10/04/20 20:16 Dose: Not Given Documented by: [id number] Patiromer (Patiromer Calcium Sorbitex 8.4 Gm Pack) 8.4 gm PO NOW STA Stop: 10/04/20 17:34 Last Admin: 10/04/20 17:51 Dose: 8.4 gm Documented by: [id number] Sodium Polystyrene Sulfonate (Sodium Polystyrene Sulfonate 15g/60ml Susp) 30 gm PO NOW STA Stop: 10/04/20 16:13 Last Admin: 10/04/20 17:44 Dose: Not Given Documented by: [id number] Discharge Plan Visit Data Chief Complaint: Abdominal Pain ED Provider: Sanjeev Moise Discharge Problem: COVID-19, Acute renal failure, Acute hyperkalemia, Metabolic acidosis Patient Disposition: Admitted As Inpatient Discharge Instructions Interventions: ED Discharge Assessment Last Done: 10/04/20 20:59 Discharge Problem: Acute renal failure Qualifiers: Acute renal failure type: unspecified Qualified Code(s): N17.9 - Acute kidney failure, unspecified
[2020-10-04 14:49] LABS: Appearance Urine Turbid (Clear); Bacteria Urine Automated Negative (Negative); Bilirubin Urine Negative (Negative); Blood Urine 2+ (Negative); Color Urine Dark Yellow; Epithelial Cell Urine Auto >30 /lpf (0-5); Glucose Urine UA Negative (Negative); Ketones Urine Trace (Negative); Leukocyte Esterase Urine 3+ (Negative); Nitrite Urine Negative (Negative); Protein Urine 3+ (Negative); Specific Gravity Urine 1.029 (1.000-1.030); Urobilinogen Urine Negative (Negative); WBC Urine Automated >30 /hpf (0-5)
--- NOTE | 2020-10-04 14:58 | CT Scan Report ---
CT OF THE ABDOMEN AND PELVIS WITHOUT CONTRAST CLINICAL HISTORY: Left flank pain. COMPARISON STUDY: CT of the abdomen and pelvis September 17, 2020 TECHNIQUE: Axial images of the abdomen and pelvis were obtained without IV contrast. Images were revi ewed in the axial, sagittal, and coronal planes. Automated exposure control was utilized for the ascencion dy. A dose lowering technique was utilized adhering to the principles of ALARA. FINDINGS: Visualized portions of the lower chest demonstrate a moderate-sized hiatal hernia. Note is made of healing fractures of the left seventh through 11th ribs. There is mild callus formation. Thes e are likely subacute. No acute lumbar spine or pelvic fracture is identified. Dilatation of the left renal pelvis is unchanged. Calculi within the left renal pelvis measure up to 1.8 cm. No ureteral ca lculi are present. Mild urothelial thickening is again noted within the left renal pelvis. This is un changed. The previously described left renal cyst has decreased in size since prior exam. This now me asures 5.7 cm. Hemorrhage within the cyst has nearly completely resolved. Adjacent hemorrhage has res olved. Right renal calculus is noted. A probable cyst within lower pole the right kidney is noted. Ev aluation of the abdomen and pelvis is suboptimal on this unenhanced exam. There is no significant george iary ductal dilatation status post cholecystectomy. The spleen, adrenal glands and pancreas are unrem arkable. Is no peripancreatic infiltration. Umbilical hernia contains a loop of bowel. There is no re sultant bowel obstruction. Postoperative findings consistent with subtotal colectomy are noted. No pn eumatosis, free air or portal venous gas is present. There is no lymphadenopathy or ascites. IMPRESSION: 1. Near complete resolution of hemorrhage within the left renal cyst on CT of September 17, 2020. Adjac ent hemorrhage has resolved. 2. Subacute healing fractures of the left seventh through 11th ribs. 3. Status post subtotal colectomy. No bowel obstruction. 4. Redemonstration of multiple calculi within a chronically dilated left renal pelvis. No ureteral ca lculi. ACT 112: Negative or not required by law. Electronically signed by: Abdirashid Motta M.D. 10/04/2020 2:57 PM
[2020-10-04 15:04] LABS: Cast Urine Automated 0 /lpf (0-5)
[2020-10-04 15:22] LABS: Basophils # (auto) 0.05 K/uL (0-0.2); Basophils % (auto) 0.6 %; Eosinophils # (auto) 0.06 K/uL (0-0.5); Eosinophils % (auto) 0.7 %; Hematocrit (blood only) 45.6 % (37-47); Hemoglobin 14.1 g/dL (12.0-16.0); Immature Granulocytes # (auto) 0.06 K/uL (0.00-0.02); Immature Granulocytes % (auto) 0.7 %; Lymphocytes # (auto) 1.22 K/uL (1.2-3.4); Lymphocytes % (auto) 13.4 %; Mean Corpuscular Hemoglobin 30.5 pg (25-34); Mean Corpuscular Hgb Conc 30.9 g/dL (32-36); Mean Corpuscular Volume 98.5 fL (80-100); Mean Platelet Volume 11.9 fL (7.4-10.4); Monocytes # (auto) 1.58 K/uL (0.11-0.59); Monocytes % (auto) 17.4 %; Neutrophils # (auto) 6.11 K/uL (1.4-6.5); Neutrophils % (auto) 67.2 %; Platelet Count 389 K/uL (130-400); RDW Coefficient of Variation 14.5 % (11.5-14.5); RDW Standard Deviation 52.4 fL (36.4-46.3); Red Blood Count 4.63 M/uL (4.2-5.4); White Blood Count 9.08 K/uL (4.8-10.8)
--- NOTE | 2020-10-04 15:23 | XRay Report ---
XR chest 1V portable CLINICAL HISTORY: Atypical chest pain. COMPARISON STUDY: Chest CT September 17, 2020. FINDINGS: Lung volumes are normal. There is no pneumothorax or pleural effusion. No consolidation is present. Several healing left lower rib fractures are better depicted on the CT of the abdomen and pe lvis which was performed earlier today. Cardiac size is normal. A hiatal hernia is again noted. IMPRESSION: 1. No pneumothorax. 2. Several healing left lower rib fractures which are better depicted on the CT of the abdomen and pe lvis which was performed earlier today. 3. Hiatal hernia. ACT 112: Negative or not required by law. Electronically signed by: Abdirashid Motta M.D. 10/04/2020 3:22 PM
[2020-10-04 15:45] LABS: INR 1.1 (0.9-1.1); Partial Thromboplastin Time 26.8 Seconds (21.0-31.0); Prothrombin Time 11.2 Seconds (9.0-12.0)
[2020-10-04 15:59] LABS: Alanine Aminotransferase 27 U/L (12-78); Albumin Globulin Ratio 0.8 (0.9-2); Alkaline Phosphatase 262 U/L (45-117); Aspartate Aminotransferase 21 U/L (15-37); BUN Creatinine Ratio 6.1 (10-20); Bilirubin Direct < 0.1 mg/dl (0-0.2); Bilirubin,Total 0.3 mg/dl (0.2-1); Blood Urea Nitrogen 61 mg/dl (7-18); Calcium 9.6 mg/dl (8.5-10.1); Carbon Dioxide 14 mmol/L (21-32); Chloride 112 mmol/L (98-107); Creatinine Clr Calc Pharmacy 5.1 ml/min; Est GFR (African American) 4.2; Est GFR (Non-African American) 3.6; Glucose 116 mg/dl (70-99); Lipase 578 U/L (73-393); Magnesium 1.9 mg/dl (1.8-2.4); Phosphorus 6.2 mg/dl (2.5-4.9); Potassium 6.9 mmol/L (3.5-5.1); Sodium 137 mmol/L (136-145); Troponin I < 0.015 ng/ml (0-0.045)
[2020-10-04] MEDS ORDERED: SODIUM POLYSTYRENE SULFONATE 15G/60ML SUSP PO STA (16:12)
[2020-10-04] MEDS ORDERED: DEXTROSE 50% 50 ML SYRINGE IV ONE (16:12)
[2020-10-04] MEDS ORDERED: CALCIUM GLUCONATE 10% 2,000 MG in SODIUM CHLORIDE 0.9% 50 ML IV ONE (16:12)
[2020-10-04] MEDS ORDERED: NovoLIN-R INSULIN PER UNIT CHARGE IV STA (16:12)
[2020-10-04] MEDS ORDERED: FAMOTIDINE 20MG IV PUSH 20 MG/5 ML SYR IV STA (16:16)
[2020-10-04] MEDS ORDERED: PROCHLORPERAZINE 1 ML IV ONE (16:16)
[2020-10-04] MEDS ORDERED: cefTRIAXone SODIUM 2,000 MG/70 ML BAG IV STA (16:17)
[2020-10-04] MEDS ORDERED: PATIROMER CALCIUM SORBITEX 8.4 GM PACK PO STA (17:33)
[2020-10-04] MEDS ORDERED: FUROSEMIDE 40 MG/4 ML VIAL IV STA (17:33)
[2020-10-04] MEDS ORDERED: PROCHLORPERAZINE 5 MG in SYRINGE 4 ML IV ONE (17:33)
[2020-10-04] MEDS ORDERED: STAT IV STA (17:41)
[2020-10-04] MEDS: SODIUM BICARBONATE 8.4% 100 MEQ in DEXTROSE 5% 1,000 ML IV SCH (18:00)
--- NOTE | 2020-10-04 18:54 | History & Physical Report ---
Date of Service October 04, 2020 Assessment & Plan (1) Acute renal failure: History of CKD stage III with recurrent admission to the hospital secondary to acute on chronic renal failure requiring temporary hemodialysis Recent history of ruptured left renal cyst and the patient was transferred to [place] on 17 September and required IR intervention but no hemodialysis needed Has been complaining of left-sided flank and abdominal pain associated with nausea and vomiting since discharge from the hospital on Here with more symptoms and generalized weakness Noted to have acute renal failure with creatinine of 9.97 from 4.04 on 17 September Has been getting minimal amount of intravenous fluid Nephrology consulted Will monitor PRP Ruptured left renal cyst on 09/17/2020 Hemorrhagic rupture of the left renal cyst on 17 September and the patient was transferred to [place] for IR intervention She did not require any hemodialysis and was sent home on of this month CT scan of the abdomen pelvis today showed near complete resolution of hemorrhage within the left renal cyst and adjacent hemorrhage has resolved Still complains to have some pain in left flank area with associated nausea and vomiting UA seems to be unremarkable for any infection (2) Acute hyperkalemia: Her potassium noted to be at 6.9 without any EKG changes She received insulin plus dextrose, calcium chloride, bicarb drip and potassium binder Nephrology has been consulted We will repeat PRP at around 10 tonight (3) COVID-19: Denies any symptoms of Covid and not sure if she was exposed to or not Minimal symptoms of cough but no shortness of breath Unfortunately Covid test came back positive She will be admitted to Covid unit Does not require any medications to be given at this time (4) CALI (obstructive sleep apnea): No acute distress We will continue oxygen as needed (5) COPD (chronic obstructive pulmonary disease): No exacerbation We will continue her current medications (6) On home oxygen therapy: (7) Diabetes mellitus, type 2: Hold glyburide We will put her on sliding scale insulin coverage (8) Hypertension: Blood pressure seems to be stable (9) CHF (congestive heart failure): Received a small dose of Lasix as per nephrology (10) Morbid obesity with BMI of 40.0-44.9, adult: (11) Depression: Continue current medication (12) Colon cancer: Has had colectomy in the past No acute issue DVT prophylaxis Will give subcu heparin given the high risk to get thrombosis CODE STATUS Full History of Present Illness Chief Complaint: Increasing left-sided flank and abdominal pain associated with nausea and vomiting for about a week Primary Care Provider: Lo Chand DO She is a 64 years old obese female with significant complicated past medical history of hypertension, hyperlipidemia, CAD with history of congestive heart failure, COPD/asthma ,CALI, benign tremors involving mainly the upper extremities, history of recent acute renal failure on CKD stage III which briefly required hemodialysis during hospitalization in [facility] in early September and recent history of hemorrhagic left renal cyst which required IR intervention in [place] from September 17 to September 25. Since discharge from the hospital she has been having ongoing pain involving the left flank and left abdomen and the pain has been worse recently with worsening symptoms of nausea vomiting and increasing pain as of today. Denies any fever and/or chills but complains to have minimal cough without any significant shortness of breath. She was noted to have PERRI with hyperkalemia and apparently the Covid test came back positive. His CT scan did show improvement of the hemorrhage of left renal cyst. The case was discussed by the ER physician with the receptionist secretary and was admitted to Covid unit for continuation of care. Allergies Allergy/AdvReac Type Severity Reaction Status Date / Time salicylates Allergy Severe SHORTNESS Verified 09/17/20 13:00 OF BREATH Iodinated Contrast Media Allergy Intermediate EYES Verified 09/17/20 13:00 SWELLING/Hives amoxicillin [From Augmentin] Allergy Mild Rash Verified 09/17/20 13:00 aspirin Allergy Mild FACIAL Verified 09/17/20 13:00 SWELLING clavulanic acid Allergy Mild Rash Verified 09/17/20 13:00 [From Augmentin] hydromorphone Allergy Mild RASH/ITCHIN Verified 09/17/20 13:00 G fentanyl Allergy itching/felt Verified 09/17/20 13:00 like throat closing meperidine AdvReac Intermediate ITCH Verified 09/17/20 13:00 morphine AdvReac Intermediate ITCH Verified 09/17/20 13:00 tramadol AdvReac Mild itch Verified 09/17/20 13:00 Home Medications Medication Instructions Recorded Confirmed Type atorvastatin [Lipitor] 40 mg PO QPM 07/12/18 10/04/20 History clopidogrel [Plavix] 75 mg PO QPM 07/12/18 10/04/20 History pantoprazole [Protonix] 40 mg PO BID 07/12/18 10/04/20 History riboflavin (vitamin B2) 400 mg PO QPM 07/12/18 10/04/20 History duloxetine 60 mg PO QAM 10/16/18 10/04/20 History cholecalciferol (vitamin D3) 2,000 unit PO QAM 05/16/19 10/04/20 History [Vitamin D3] oxcarbazepine [Trileptal] 300 mg PO BID 05/16/19 10/04/20 History albuterol sulfate 2 puff INHALATION Q4H PRN 07/21/19 10/04/20 History magnesium oxide 400 mg PO HS 10/05/19 10/04/20 History doxepin 100 mg PO HS 11/30/19 10/04/20 History glipizide [Glucotrol XL] 2.5 mg PO DAILY #30 tab 02/12/20 10/04/20 Rx Forteo 20 mcg SUBCUT DAILY 05/06/20 10/04/20 History Saccharomyces boulardii [Florastor] 250 mg PO BID 08/17/20 10/04/20 History lisinopril 2.5 mg PO QPM 08/17/20 10/04/20 History ondansetron 4 mg PO Q8H PRN 08/17/20 10/04/20 History potassium chloride 20 meq PO DAILY #30 tab 09/11/20 10/04/20 Rx acetaminophen 650 mg PO Q8H PRN 10/04/20 10/04/20 History cholestyramine-aspartame 4 g PO BIDM 10/04/20 10/04/20 History [Cholestyramine Light] metoprolol succinate 25 mg PO TID 10/04/20 10/04/20 History Past Med/Surg History Medical History (Updated 10/04/20 @ 18:45 by Annette Modi MD) Acute hypotension Acute strain of neck muscle Acute UTI (urinary tract infection) Anxiety Asthma Asthma CHF (congestive heart failure) Chronic back pain Chronic headaches Chronic renal insufficiency stage 3, following with [facility] nephrology ([place]) CKD (chronic kidney disease), stage III COPD (chronic obstructive pulmonary disease) Deep vein thrombosis LLE - COULD NOT RECALL DATE - REPORTS SHE WAS TREATED AT [facility] W/ BLOOD THINNERS Degenerative disc disease Depression Depression Diabetes mellitus, type 2 Fever GERD (gastroesophageal reflux disease) GERD (gastroesophageal reflux disease) Gram negative septicemia History of colon cancer 2012 S/P BOWEL RESECTION. History of esophageal dilatation HLD (hyperlipidemia) HTN (hypertension) Hyperlipidemia Hypertension Kidney stones Lethargy Morbid obesity with BMI of 40.0-44.9, adult Myocardial Infarction 03/2018--> [facility] -- CARDIAC CATH --> NO STENTS/ANGIOPLASTY PER PT REPORT -- POOR HISTORIAN? REPORTS SHE IS ON PLAVIX FOR HEART - DENIES STENTS - DENIES ARRHYTHMIA - FOLLOWS W/ DR. TORRES On anticoagulant therapy plavix daily On home oxygen therapy 2L N/C at all times - states MD stopped this, patient states she is no longer using Osteoarthritis Osteoarthritis Poor historian Pyelonephritis Renal calculi Right shoulder strain Seizure pt states "i think i had them a long time ago". no other information. Sepsis Tachycardia Weakness Surgical History (Updated 09/12/20 @ 00:02 by Ezekiel Sheth) H/O hand surgery RIGHT History of appendectomy History of bilateral cataract extraction History of blepharoplasty History of bowel resection d/t colon cancer History of cardiac cath 03/2018 - [place] - DENIES STENTS/ANGIOPLASTY - [facility] - FOLLOWS W/ DR. TORRES History of colectomy "due to colon cancer" History of colonoscopy History of cystoscopy History of esophagogastroduodenoscopy (EGD) History of hysterectomy History of kidney surgery at age 9 yrs "something was wrong and had to fix it" History of lithotripsy History of tooth extraction History of total abdominal hysterectomy and bilateral salpingo-oophorectomy Hx of cholecystectomy S/P cholecystectomy Family History Other Breast cancer Social History Smoking Status: Never smoker Second Hand Exposure: No; Hx Alcohol Use: No Hx Substance Use: No Preferred Language: Togolese Communication Ability: Effective Manager Product Marketing Required: No Beliefs That Will Affect Care: None marital status: Current Living Situation: Alone Current Living Situation Comment: alone in [place] in [place] Feels Safe at Home: Yes Assistive Devices: Oxygen - Continuous and Walker Review of Systems Review of Systems: All systems reviewed & are unremarkable except as noted in HPI & below Physical Exam Physical Exam: Lying in bed with stress due to left-sided abdominal pain and tremors Constitutional: well developed, well nourished, + acute distress (Secondary to left-sided abdominal pain with nausea and vomiting), + ill appearing and + obese Eyes: PERRL, conjunctivae normal, anicteric sclerae ENMT: external ear and nose normal, oropharynx normal Neck: trachea midline, no thyromegaly Respiratory: no respiratory distress Auscultation: lungs clear to auscultation bilaterally and + diminished lung sounds; no crackles and no wheezes Cardiovascular: Rate/Rhythm: regular rate and regular rhythm Heart Sounds: no murmur Extremities: + edema (Trace to 1+ edema bilaterally) Gastrointestinal (Abdomen): Inspection/Auscultation: normal bowel sounds; abdomen not distended Percussion/Palpation: + abdomen tender (Minimally tender left flank) and abdomen soft Musculoskeletal: No acute arthritis in any joint Neurologic: Alert, awake and oriented x3. No focal sensory and motor deficit appreciated. Generally weak Lymphatic: no cervical or axillary lymphadenopathy Results & Data Results & Data ([facility]) Vital Signs (Past 12 Hours) Vital Signs Temp Pulse Resp BP Pulse Ox 10/04/20 18:01 131 H 19 98 10/04/20 18:00 135 H 25 H 120/89 94 10/04/20 17:55 136 H 22 116/84 98 10/04/20 17:50 129 H 21 97 10/04/20 17:40 132 H 28 H 10/04/20 17:31 134 H 22 98 10/04/20 17:30 133 H 23 85 L 10/04/20 17:20 127 H 20 96 10/04/20 17:10 124 H 19 97 10/04/20 17:01 124 H 17 98 10/04/20 17:00 106 H 20 94/56 L 98 10/04/20 16:50 121 H 22 95 10/04/20 16:42 132 H 28 H 98 10/04/20 16:41 114 H 21 143/76 H 97 10/04/20 16:40 116 H 27 H 100 10/04/20 16:35 109 H 20 85/44 L 92 10/04/20 16:32 105 H 17 56/45 L 98 10/04/20 16:30 106 H 15 96 10/04/20 16:20 109 H 17 96 10/04/20 16:10 109 H 19 96 10/04/20 16:01 110 H 18 95 10/04/20 16:00 108 H 20 104/75 100 10/04/20 15:50 109 H 21 95 10/04/20 15:40 117 H 24 10/04/20 15:31 117 H 12 93 10/04/20 15:30 117 H 18 103/73 97 10/04/20 15:20 15 94 10/04/20 15:10 120 H 19 96 10/04/20 15:01 117 H 20 95 10/04/20 15:00 117 H 18 105/69 97 10/04/20 14:50 117 H 30 H 96 10/04/20 14:47 118 H 23 98 10/04/20 14:31 118 H 21 98 10/04/20 14:30 120 H 16 109/83 97 10/04/20 14:24 96 10/04/20 14:20 117 H 20 10/04/20 14:10 119 H 25 H 97 10/04/20 14:05 36.9 C 119 H 20 103/75 95 10/04/20 14:00 122 H 25 H 10/04/20 13:58 121 H 24 174/153 H 10/04/20 13:57 130 H 20 95 Laboratory Results Short CBC 10/04/20 Range/Units 15:07 WBC 9.08 (4.8-10.8) K/uL Hgb 14.1 (12.0-16.0) g/dL Hct 45.6 (37-47) % Plt Count 389 (130-400) K/uL BMP 10/04/20 15:07 Sodium 137 Potassium 6.9 H* Chloride 112 H Carbon Dioxide 14 L BUN 61 H Creatinine 9.97 H* Glucose 116 H Calcium 9.6 Cardiac Enzymes 10/04/20 Range/Units 15:07 Troponin I < 0.015 (0-0.045) ng/ml Liver Function 10/04/20 Range/Units 15:07 Total Bilirubin 0.3 (0.2-1) mg/dl Direct Bilirubin < 0.1 (0-0.2) mg/dl AST 21 (15-37) U/L ALT 27 (12-78) U/L Alkaline Phosphatase 262 H (45-117) U/L Albumin 4.0 (3.4-5.0) gm/dl Urine 10/04/20 Range/Units 14:15 Urine Color Dark Yellow Urine Appearance Turbid A (Clear) Urine pH 5.0 (4.5-7.5) Ur Specific [place] 1.029 (1.000-1.030) Urine Protein 3+ H (Negative) Urine Glucose (UA) Negative (Negative) Medications Administered Current Inpatient Medications Sodium Bicarbonate 100 meq/ (Dextrose) 1,100 mls @ 100 mls/hr IV .Q11H MARLA Stop: 11/03/20 17:44 Last Admin: 10/04/20 18:00 Dose: 100 mls/hr Documented by: Insulin Aspart (Insulin Aspart 100 Units/Ml 3 Ml Pen) 0 units SC ACHS [facility] Stop: 11/03/20 20:59
[2020-10-04] MEDS ORDERED: GLUCAGON FOR INJ 1 MG VIAL IM PRN (21:45)
[2020-10-04] MEDS ORDERED: CARBOHYDRATES FOR HYPOGLYCEMIA PO PRN (21:45)
[2020-10-04] MEDS ORDERED: DEXTROSE 50% 50 ML SYRINGE IV PRN (21:45)
[2020-10-04] MEDS ORDERED: GLUCOSE 10 TABS/TUBE PO PRN (21:45)
[2020-10-04] MEDS ORDERED: GLUCOSE 40% GEL 15 GM TUBE PO PRN (21:45)
[2020-10-04] MEDS ORDERED: NON-FORMULARY MEDICATION (Riboflavin (Vitamin B2) 400 mg Tablet) PO SCH (22:03)
[2020-10-04] MEDS ORDERED: ALBUTEROL HFA 8 GM INHALER INH PRN (22:03)
[2020-10-04] MEDS: INSULIN ASPART 100 UNITS/ML 3 ML PEN SC SCH (22:37)
[2020-10-04] MEDS: PANTOprazole 40 MG TAB PO SCH (23:21)
[2020-10-04] MEDS: SACCHAROMYCES BOULARDII 250 MG CAP PO SCH (23:21)
[2020-10-04] MEDS: METOPROLOL SUCC 25MG EXT REL TAB PO SCH (23:22)
[2020-10-04] MEDS: DOXEPIN HCL 50 MG CAPSULE PO SCH (23:22)
[2020-10-04] MEDS: ATORVASTATIN 40 MG TAB PO SCH (23:22)
[2020-10-04] MEDS: CLOPIDOGREL BISULFATE 75 MG TAB PO SCH (23:23)
[2020-10-04 23:31] LABS: BUN Creatinine Ratio 6.7 (10-20); Calcium 9.8 mg/dl (8.5-10.1); Creatinine Clr Calc Pharmacy 5.9 ml/min; Est GFR (African American) 4.8; Est GFR (Non-African American) 4.2; Potassium 5.9 mmol/L (3.5-5.1)
[2020-10-05] MEDS: OXcarbazepine 150 MG TABLET PO SCH ×3 (00:25→21:58)
[2020-10-05] MEDS: ACETAMINOPHEN 1000 MG/100 ML IV IV PRN ×3 (00:27→23:36)
[2020-10-05] MEDS ORDERED: INSULIN HUMAN REGULAR PER UNIT 10 UNITS in SYRINGE 9.9 ML IV ONE (03:40)
[2020-10-05] MEDS ORDERED: DEXTROSE 50% 50 ML SYRINGE IV STA (03:40)
[2020-10-05] MEDS ORDERED: CALCIUM GLUCONATE 10% 1,000 MG in SODIUM CHLORIDE 0.9% 50 ML IV ONE (03:40)
[2020-10-05] MEDS ORDERED: SODIUM CHLORIDE 0.9% 500 ML IV SCH (03:45)
[2020-10-05] MEDS: SODIUM BICARBONATE 8.4% 100 MEQ in DEXTROSE 5% 1,000 ML IV SCH (05:32)
[2020-10-05 07:20] LABS: Basophils # (auto) 0.03 K/uL (0-0.2); Basophils % (auto) 0.4 %; Eosinophils # (auto) 0.22 K/uL (0-0.5); Eosinophils % (auto) 2.9 %; Hematocrit (blood only) 37.3 % (37-47); Hemoglobin 10.9 g/dL (12.0-16.0); Immature Granulocytes # (auto) 0.04 K/uL (0.00-0.02); Immature Granulocytes % (auto) 0.5 %; Lymphocytes # (auto) 1.58 K/uL (1.2-3.4); Mean Corpuscular Hemoglobin 29.1 pg (25-34); Mean Corpuscular Hgb Conc 29.2 g/dL (32-36); Mean Corpuscular Volume 99.7 fL (80-100); Mean Platelet Volume 11.3 fL (7.4-10.4); Monocytes # (auto) 1.35 K/uL (0.11-0.59); Neutrophils % (auto) 57.2 %; Platelet Count 267 K/uL (130-400); RDW Coefficient of Variation 14.5 % (11.5-14.5); RDW Standard Deviation 53.3 fL (36.4-46.3); Red Blood Count 3.74 M/uL (4.2-5.4); White Blood Count 7.52 K/uL (4.8-10.8)
[2020-10-05 07:37] LABS: Calcium 8.5 mg/dl (8.5-10.1); Creatinine Clr Calc Pharmacy 6.5 ml/min; Est GFR (African American) 5.3; Est GFR (Non-African American) 4.6; Magnesium 1.3 mg/dl (1.8-2.4); Phosphorus 4.9 mg/dl (2.5-4.9); Potassium 4.6 mmol/L (3.5-5.1)
[2020-10-05] MEDS: [UNRECOGNIZED DRUG - REMARK] SCH ×3 (08:23→22:33)
[2020-10-05] MEDS: INSULIN ASPART 100 UNITS/ML 3 ML PEN SC SCH ×4 (08:23→20:53)
[2020-10-05] MEDS: PANTOprazole 40 MG TAB PO SCH ×2 (08:26→21:58)
[2020-10-05] MEDS: CHOLECALCIFEROL 1,000 UNITS 25 MCG TAB PO SCH (08:26)
[2020-10-05] MEDS: DULoxetine HCL 60 MG CAP PO SCH (08:26)
[2020-10-05] MEDS: SACCHAROMYCES BOULARDII 250 MG CAP PO SCH ×2 (08:26→21:58)
[2020-10-05] MEDS: METOPROLOL SUCC 25MG EXT REL TAB PO SCH ×3 (08:26→19:45)
[2020-10-05] MEDS: CHOLESTYRAMINE LIGHT 4 GM PKT PO SCH ×2 (08:33→17:46)
--- NOTE | 2020-10-05 11:59 | Nephrology Consultation ---
Date of Consultation October 05, 2020 Assessment & Plan (1) Acute renal failure: Likely prerenal in the setting of nausea vomiting and decreased oral intake. Denied taking any NSAIDs Renal functions have shown improvement after fluid resuscitation. Increase her normal saline 100 mils an hour she still looks volume depleted. Hyperkalemia has resolved, keep on with holding lisinopril. Daily BMPs. Tract input and output. Unlikely she will require dialysis during this admission but will keep a close eye on this. (2) Acute hyperkalemia: Secondary to renal failure, it was also on potassium supplements and CHERY. With stopping the supplements and these. Resolved with medical management (3) Metabolic acidosis: Secondary to PERRI, White cell counts are normal and her UA shows mixed growth and she is afebrile. Stop the antibiotics Started on sodium bicarb tablets 650 p.o. 3 times a day, continue History of Present Illness Reason for Consultation: Acute kidney injury, hyperkalemia Attending Physician: Kyler Richardson MD History of Present Illness 64-year-old obese female with a past history of hypertension hyperlipidemia CAD history of cardiac failure COPD asthma CALI kidney stage III requiring hemodialysis and hospitalization in early September secondary to hemorrhagic left renal cyst requiring IR intervention and transfer to [facility] from September 17. He presented to the ER with ongoing left flank pain and abdominal pain with some associated nausea and vomiting and dysuria since her discharge from [facility]. He also complained of ongoing nausea and vomiting poor oral intake denied any fever or chills or cough. ER labs were significant for hyperkalemia of 6.9 and PERRI she was tested Covid positive, CT scan without contrast done in the ER showed improvement in the left renal cyst with bilateral nephrolithiasis which had been present during the previous imaging. Her hyperkalemia was managed medically, was on IV fluid resuscitation. When examined in the morning she still complained of with abdominal pain urine output has been good, but pressure still soft and early 100s systolic, per renal functions marginally improved. No pedal edema. UA was significant for More than 30 white cell count, however nitrite negative, urine culture showed mixed growth, all high counts probably skin agnes. As per [facility] records her creatinine on 09/17 was 4., This had improved to 1.1 (eGFR 51.7)on the labs from 09/25. Allergies Allergy/AdvReac Type Severity Reaction Status Date / Time salicylates Allergy Severe SHORTNESS Verified 09/17/20 13:00 OF BREATH Iodinated Contrast Media Allergy Intermediate EYES Verified 09/17/20 13:00 SWELLING/Hives amoxicillin [From Augmentin] Allergy Mild Rash Verified 09/17/20 13:00 aspirin Allergy Mild FACIAL Verified 09/17/20 13:00 SWELLING clavulanic acid Allergy Mild Rash Verified 09/17/20 13:00 [From Augmentin] hydromorphone Allergy Mild RASH/ITCHIN Verified 09/17/20 13:00 G fentanyl Allergy itching/felt Verified 09/17/20 13:00 like throat closing meperidine AdvReac Intermediate ITCH Verified 09/17/20 13:00 morphine AdvReac Intermediate ITCH Verified 09/17/20 13:00 tramadol AdvReac Mild itch Verified 09/17/20 13:00 Home Medications Medication Instructions Recorded Confirmed Type atorvastatin [Lipitor] 40 mg PO QPM 07/12/18 10/04/20 History clopidogrel [Plavix] 75 mg PO QPM 07/12/18 10/04/20 History pantoprazole [Protonix] 40 mg PO BID 07/12/18 10/04/20 History riboflavin (vitamin B2) 400 mg PO QPM 07/12/18 10/04/20 History duloxetine 60 mg PO QAM 10/16/18 10/04/20 History cholecalciferol (vitamin D3) 2,000 unit PO QAM 05/16/19 10/04/20 History [Vitamin D3] oxcarbazepine [Trileptal] 300 mg PO BID 05/16/19 10/04/20 History albuterol sulfate 2 puff INHALATION Q4H PRN 07/21/19 10/04/20 History magnesium oxide 400 mg PO HS 10/05/19 10/04/20 History doxepin 100 mg PO HS 11/30/19 10/04/20 History glipizide [Glucotrol XL] 2.5 mg PO DAILY #30 tab 02/12/20 10/04/20 Rx Forteo 20 mcg SUBCUT DAILY 05/06/20 10/04/20 History Saccharomyces boulardii [Florastor] 250 mg PO BID 08/17/20 10/04/20 History lisinopril 2.5 mg PO QPM 08/17/20 10/04/20 History ondansetron 4 mg PO Q8H PRN 08/17/20 10/04/20 History potassium chloride 20 meq PO DAILY #30 tab 09/11/20 10/04/20 Rx acetaminophen 650 mg PO Q8H PRN 10/04/20 10/04/20 History cholestyramine-aspartame 4 g PO BIDM 10/04/20 10/04/20 History [Cholestyramine Light] metoprolol succinate 25 mg PO TID 10/04/20 10/04/20 History Patient History Medical History Acute hypotension Acute strain of neck muscle Acute UTI (urinary tract infection) Anxiety Asthma Asthma CHF (congestive heart failure) Chronic back pain Chronic headaches Chronic renal insufficiency stage 3, following with [facility] nephrology ([place]) CKD (chronic kidney disease), stage III COPD (chronic obstructive pulmonary disease) Deep vein thrombosis LLE - COULD NOT RECALL DATE - REPORTS SHE WAS TREATED AT [facility] W/ BLOOD THINNERS Degenerative disc disease Depression Depression Diabetes mellitus, type 2 Fever GERD (gastroesophageal reflux disease) GERD (gastroesophageal reflux disease) Gram negative septicemia History of colon cancer 2012 S/P BOWEL RESECTION. History of esophageal dilatation HLD (hyperlipidemia) HTN (hypertension) Hyperlipidemia Hypertension Kidney stones Lethargy Morbid obesity with BMI of 40.0-44.9, adult Myocardial Infarction 03/2018--> [facility] -- CARDIAC CATH --> NO STENTS/ANGIOPLASTY PER PT REPORT -- POOR HISTORIAN? REPORTS SHE IS ON PLAVIX FOR HEART - DENIES STENTS - DENIES ARRHYTHMIA - FOLLOWS W/ DR. TORRES On anticoagulant therapy plavix daily On home oxygen therapy 2L N/C at all times - states MD stopped this, patient states she is no longer using Osteoarthritis Osteoarthritis Poor historian Pyelonephritis Renal calculi Right shoulder strain Seizure pt states "i think i had them a long time ago". no other information. Sepsis Tachycardia Weakness Surgical History H/O hand surgery RIGHT History of appendectomy History of bilateral cataract extraction History of blepharoplasty History of bowel resection d/t colon cancer History of cardiac cath 03/2018 - [place] - DENIES STENTS/ANGIOPLASTY - [facility] - FOLLOWS W/ DR. TORRES History of colectomy "due to colon cancer" History of colonoscopy History of cystoscopy History of esophagogastroduodenoscopy (EGD) History of hysterectomy History of kidney surgery at age 9 yrs "something was wrong and had to fix it" History of lithotripsy History of tooth extraction History of total abdominal hysterectomy and bilateral salpingo-oophorectomy Hx of cholecystectomy S/P cholecystectomy Family History Other Breast cancer Social History Smoking Status: Never smoker Second Hand Exposure: No; Hx Alcohol Use: No Hx Substance Use: No Preferred Language: Kyrgyz Communication Ability: Effective Manager Perioperative Required: No Beliefs That Will Affect Care: None marital status: Current Living Situation: Spouse Current Living Situation Comment: alone in [place] Other Information That Helps Us Care for You: No Feels Safe at Home: Yes Assistive Devices: Walker Review of Systems Review of Systems: All systems reviewed & are unremarkable except as noted in HPI & below Physical Exam Physical Exam: Constitutional: no acute distress HEENT: normal: normocephalic, atraumatic; no masses, tenderness, or adenopathy Eyes: sclera and conjunctiva normal Neck: supple, normal range of motion CV: normal rate and rhythm, no murmur, gallops or rub Chest: normal respiratory effort, lungs clear to auscultation and percussion Abdomen: normal: soft, bowel sounds normal, no masses, light ecchymosis seen on L flank area, slightly tender to palpation Extremities: no clubbing, cyanosis, or edema, otherwise grossly normal, warm, and dry Neuro: alert, oriented to person, place, and time, has myoclonic jerking Psych: normal mood and affect Results & Data ([facility]) Vital Signs (Past 12 Hours) Vital Signs Temp Pulse Pulse Resp BP BP Pulse Ox 10/05/20 11:21 36.8 C 98 H 20 104/61 95 10/05/20 07:33 96 H 10/05/20 07:12 36.7 C 96 H 20 96/54 L 100 10/05/20 04:12 90/61 L 10/05/20 03:24 36.7 C 95 H 16 76/49 L 97 (1) Acute renal failure Acute renal failure type: unspecified Qualified Code(s): N17.9 - Acute kidney failure, unspecified
--- NOTE | 2020-10-05 12:49 | Electrocardiogram Report ---
Test Reason : Blood Pressure : / mmHG Vent. Rate : 230 BPM Atrial Rate : 230 BPM P-R Int : 000 ms QRS Dur : 092 ms QT Int : 158 ms P-R-T Axes : 000 067 -11 degrees QTc Int : 309 ms Sinus tachycardia Low voltage QRS Poor R wave progression, consider anterior [place] vs. lead placement vs. LVH Nonspecific T wave abnormality Abnormal ECG When compared with ECG of 17-SEP-2020 12:41, Sinus tachycardia now present Confirmed by Kodak Mei ([id number]) on 10/05/2020 12:49:36 PM Referred By: REFERRED SELF Confirmed By:Kodak Mei
[2020-10-05] MEDS: SODIUM CHLORIDE 0.9% 1000ML 1,000 ML IV SCH ×2 (12:57→22:33)
[2020-10-05 13:47] LABS: BUN Creatinine Ratio 6.9 (10-20); Calcium 8.6 mg/dl (8.5-10.1); Creatinine Clr Calc Pharmacy 6.9 ml/min; Est GFR (African American) 5.7; Est GFR (Non-African American) 4.9; Potassium 4.1 mmol/L (3.5-5.1)
[2020-10-05] MEDS: SODIUM BICARBONATE 650 MG TAB PO SCH ×2 (15:08→21:59)
[2020-10-05 15:36] LABS: Appearance Urine Turbid (Clear); Bacteria Urine Automated Negative (Negative); Bilirubin Urine Negative (Negative); Blood Urine 2+ (Negative); Color Urine Yellow; Epithelial Cell Urine Auto >30 /lpf (0-5); Glucose Urine UA Negative (Negative); Ketones Urine Trace (Negative); Leukocyte Esterase Urine 3+ (Negative); Nitrite Urine Negative (Negative); Protein Urine 2+ (Negative); Specific Gravity Urine 1.024 (1.000-1.030); Urobilinogen Urine Negative (Negative); WBC Urine Automated >30 /hpf (0-5)
[2020-10-05 15:51] LABS: Cast Urine Automated 0 /lpf (0-5)
[2020-10-05 15:54] LABS: Protein Creatinine Ratio Urine 1.1 (0-0.2); Total Protein Urine Random 199.8 mg/dl (0-11.9)
--- NOTE | 2020-10-05 19:51 | Hospitalist Progress Note ---
Date of Service October 05, 2020 Assessment & Plan (1) Acute kidney injury: Recent [place]RI [place] [facility] [facility] [place] short term hemodialysis. Serum creatinine was 1.1 on 09/25/20. Presented to ED with nausea, vomiting, weakness. BUN 61, creatinine 9.97 with associated hyperkalemia and metabolic acidosis. CT demonstrated left renal calculi without ureteral obstruction or hydronephrosis. Nephrology consulted. Received IV fluids. Creatinine this morning 8.22. Ongoing management per Nephrology. (2) Acute hyperkalemia: K was 6.9 at time of presentation. Received calcium gluconate, D50/insulin, patiromer calcium sorbitex, and bicarb. Lisinopril and KCl stopped. K this morning = 4.6. (3) Metabolic acidosis: Associated with PERRI. Management per Nephrology. (4) COVID-19: SARS-CoV-2 PCR positive. (PCR negative 09/10/20; Ag negative 09/17/20) Patient not aware of any exposure to COVID-19. No acute respiratory symptoms; O2 sats good on RA. GI symptoms could be secondary to COVID-19. COVID-specific therapies not indicated at this time. Continue to monitor pulmonary status. (5) CHF (congestive heart failure): History of CHF. Compensated. Follow. (6) Hypertension: Managed with metoprolol. Reduce dose because of hypotension. (7) COPD (chronic obstructive pulmonary disease): Pulmonary status stable. (8) Chronic respiratory failure with hypoxia: Records indicate chronic hypoxia on home O2. Now maintaining sats on RA. Need to clarify history. (9) Diabetes mellitus, type 2: DM type 2 usually managed with glipizide. Hold glipizide during hospital stay. Insulin coverage as needed. (10) DVT prophylaxis: SQ heparin. (11) Discharge planning issues: Anticipated discharge to home. Internal Medicine follow-up with Dr. Chand. Admission and Anticipated Discharge Date Admission Date: October 04, 2020 Subjective Recheck for acute kidney injury, hyperkalemia, COVID-19, and other problems. Patient seen in their room around 1420. Feels better. Less nausea. No further emesis. Chronic loose stools. Persistent left-sided abdominal pain. Review of Systems: Constitutional- no fever. Cardiac- no chest pain. Pulmonary- no cough or SOB. GI- as noted above. - Purvis cath. Otherwise, as noted above. Physical Exam Constitutional: no acute distress Eyes: + anicteric sclerae Respiratory: normal respiratory effort, lungs clear to auscultation Cardiovascular: Rate/Rhythm: regular rate and regular rhythm Heart Sounds: no cardiac rub Vessels: no JVD Extremities: no calf tenderness and no edema Gastrointestinal (Abdomen): Inspection/Auscultation: abdomen not distended Percussion/Palpation: + abdomen tender (moderate left-sided tenderness without rebound) and abdomen soft Musculoskeletal: Extremities: no cyanosis Skin: no rashes, warm and dry Psychiatric: Orientation: alert and oriented x 3 Genitourinary: + bladder abnormal to inspection (Purvis cath) Results & Data Results & Data ([facility]) Vital Signs (Past 12 Hours) Vital Signs Temp Pulse Pulse Resp BP BP Pulse Ox 10/05/20 19:21 36.6 C 110 H 18 96/63 L 95 10/05/20 15:04 36.9 C 102 H 18 92/62 L 99 10/05/20 11:21 36.8 C 98 H 20 104/61 95 Laboratory Results Laboratory Results - last 24 hr 10/04/20 10/04/20 10/05/20 22:25 22:32 06:48 WBC 7.52 RBC 3.74 L Hgb 10.9 L D Hct 37.3 MCV 99.7 MCH 29.1 MCHC 29.2 L RDW Std Deviation 53.3 H RDW Coeff of Teresa 14.5 Plt Count 267 MPV 11.3 H Immature Gran % (Auto) 0.5 Neut % (Auto) 57.2 Lymph % (Auto) 21.0 Ellis % (Auto) 18.0 Eos % (Auto) 2.9 Baso % (Auto) 0.4 Neut # (Auto) 4.30 Lymph # (Auto) 1.58 Ellis # (Auto) 1.35 H Eos # (Auto) 0.22 Baso # (Auto) 0.03 Immature Gran # (Auto) 0.04 H Sodium 139 Potassium 5.9 H Chloride 110 H Carbon Dioxide 17 L Anion Gap 12.0 H BUN 60 H Creatinine 8.89 H* D Est Cr Clr Drug Dosing 5.9 Est GFR ( Amer) 4.8 Est GFR (Non-Af Amer) 4.2 BUN/Creatinine Ratio 6.7 L Glucose 139 H POC Glucose 109 H Calcium 9.8 Phosphorus Magnesium Urine Color Urine Appearance Urine pH Ur Specific [place] Urine Protein Urine Glucose (UA) Urine Ketones Urine Blood Urine Nitrite Urine Bilirubin Urine Urobilinogen Ur Leukocyte Esterase Urine WBC (Auto) Urine RBC (Auto) U Hyaline Cast (Auto) U Epithel Cells (Auto) Urine Bacteria (Auto) Urine Yeast Ur Random Creatinine U Random Total Protein Protein/Creatinin Ratio 10/05/20 10/05/20 10/05/20 06:48 07:41 11:32 WBC RBC Hgb Hct MCV MCH MCHC RDW Std Deviation RDW Coeff of Teresa Plt Count MPV Immature Gran % (Auto) Neut % (Auto) Lymph % (Auto) Ellis % (Auto) Eos % (Auto) Baso % (Auto) Neut # (Auto) Lymph # (Auto) Ellis # (Auto) Eos # (Auto) Baso # (Auto) Immature Gran # (Auto) Sodium 136 Potassium 4.6 D Chloride 109 H Carbon Dioxide 13 L Anion Gap 14.0 H BUN 58 H Creatinine 8.22 H* D Est Cr Clr Drug Dosing 6.5 Est GFR ( Amer) 5.3 Est GFR (Non-Af Amer) 4.6 BUN/Creatinine Ratio 7.0 L Glucose 84 POC Glucose 83 108 H Calcium 8.5 Phosphorus 4.9 D Magnesium 1.3 L Urine Color Urine Appearance Urine pH Ur Specific [place] Urine Protein Urine Glucose (UA) Urine Ketones Urine Blood Urine Nitrite Urine Bilirubin Urine Urobilinogen Ur Leukocyte Esterase Urine WBC (Auto) Urine RBC (Auto) U Hyaline Cast (Auto) U Epithel Cells (Auto) Urine Bacteria (Auto) Urine Yeast Ur Random Creatinine U Random Total Protein Protein/Creatinin Ratio 10/05/20 10/05/20 10/05/20 13:01 13:12 13:12 WBC RBC Hgb Hct MCV MCH MCHC RDW Std Deviation RDW Coeff of Teresa Plt Count MPV Immature Gran % (Auto) Neut % (Auto) Lymph % (Auto) Ellis % (Auto) Eos % (Auto) Baso % (Auto) Neut # (Auto) Lymph # (Auto) Ellis # (Auto) Eos # (Auto) Baso # (Auto) Immature Gran # (Auto) Sodium 138 Potassium 4.1 Chloride 106 Carbon Dioxide 19 L Anion Gap 13.0 H BUN 53 H Creatinine 7.75 H* D Est Cr Clr Drug Dosing 6.9 Est GFR ( Amer) 5.7 Est GFR (Non-Af Amer) 4.9 BUN/Creatinine Ratio 6.9 L Glucose 116 H POC Glucose Calcium 8.6 Phosphorus Magnesium Urine Color Yellow Urine Appearance Turbid A Urine pH 5.0 Ur Specific [place] 1.024 Urine Protein 2+ H Urine Glucose (UA) Negative Urine Ketones Trace H Urine Blood 2+ H Urine Nitrite Negative Urine Bilirubin Negative Urine Urobilinogen Negative Ur Leukocyte Esterase 3+ H Urine WBC (Auto) >30 H Urine RBC (Auto) 10-30 H U Hyaline Cast (Auto) 0 U Epithel Cells (Auto) >30 H Urine Bacteria (Auto) Negative Urine Yeast Budding A Ur Random Creatinine 181.0 U Random Total Protein 199.8 H Protein/Creatinin Ratio 1.1 H 10/05/20 10/05/20 16:30 20:32 WBC RBC Hgb Hct MCV MCH MCHC RDW Std Deviation RDW Coeff of Teresa Plt Count MPV Immature Gran % (Auto) Neut % (Auto) Lymph % (Auto) Ellis % (Auto) Eos % (Auto) Baso % (Auto) Neut # (Auto) Lymph # (Auto) Ellis # (Auto) Eos # (Auto) Baso # (Auto) Immature Gran # (Auto) Sodium Potassium Chloride Carbon Dioxide Anion Gap BUN Creatinine Est Cr Clr Drug Dosing Est GFR ( Amer) Est GFR (Non-Af Amer) BUN/Creatinine Ratio Glucose POC Glucose 86 103 H Calcium Phosphorus Magnesium Urine Color Urine Appearance Urine pH Ur Specific [place] Urine Protein Urine Glucose (UA) Urine Ketones Urine Blood Urine Nitrite Urine Bilirubin Urine Urobilinogen Ur Leukocyte Esterase Urine WBC (Auto) Urine RBC (Auto) U Hyaline Cast (Auto) U Epithel Cells (Auto) Urine Bacteria (Auto) Urine Yeast Ur Random Creatinine U Random Total Protein Protein/Creatinin Ratio
[2020-10-05] MEDS ORDERED: HEPARIN SOD 5,000 UNIT/0.5 ML VIAL SQ STA (21:25)
[2020-10-05] MEDS: ATORVASTATIN 40 MG TAB PO SCH (21:58)
[2020-10-05] MEDS: CLOPIDOGREL BISULFATE 75 MG TAB PO SCH (21:58)
[2020-10-05] MEDS: DOXEPIN HCL 50 MG CAPSULE PO SCH (21:58)
[2020-10-06] MEDS: SODIUM BICARBONATE 650 MG TAB PO SCH ×2 (05:25→21:26)
[2020-10-06 07:25] LABS: Basophils # (auto) 0.01 K/uL (0-0.2); Basophils % (auto) 0.3 %; Eosinophils # (auto) 0.16 K/uL (0-0.5); Eosinophils % (auto) 4.4 %; Hematocrit (blood only) 33.9 % (37-47); Hemoglobin 10.4 g/dL (12.0-16.0); Immature Granulocytes # (auto) 0.01 K/uL (0.00-0.02); Immature Granulocytes % (auto) 0.3 %; Lymphocytes # (auto) 1.24 K/uL (1.2-3.4); Lymphocytes % (auto) 33.8 %; Mean Corpuscular Hemoglobin 29.6 pg (25-34); Mean Corpuscular Hgb Conc 30.7 g/dL (32-36); Mean Corpuscular Volume 96.6 fL (80-100); Mean Platelet Volume 11.7 fL (7.4-10.4); Monocytes % (auto) 10.9 %; Neutrophils # (auto) 1.85 K/uL (1.4-6.5); Neutrophils % (auto) 50.3 %; Platelet Count 208 K/uL (130-400); RDW Coefficient of Variation 14.5 % (11.5-14.5); RDW Standard Deviation 51.4 fL (36.4-46.3); Red Blood Count 3.51 M/uL (4.2-5.4); White Blood Count 3.67 K/uL (4.8-10.8)
[2020-10-06] MEDS: SODIUM CHLORIDE 0.9% 1000ML 1,000 ML IV SCH (07:49)
[2020-10-06] MEDS: [UNRECOGNIZED DRUG - REMARK] SCH ×2 (07:50→15:48)
[2020-10-06] MEDS: CHOLECALCIFEROL 1,000 UNITS 25 MCG TAB PO SCH (08:01)
[2020-10-06] MEDS: DULoxetine HCL 60 MG CAP PO SCH (08:01)
[2020-10-06] MEDS: OXcarbazepine 150 MG TABLET PO SCH ×2 (08:01→21:26)
[2020-10-06] MEDS: SACCHAROMYCES BOULARDII 250 MG CAP PO SCH ×2 (08:01→21:27)
[2020-10-06] MEDS: HEPARIN SOD 5,000 UNIT/0.5 ML VIAL SQ SCH ×2 (08:02→21:27)
[2020-10-06] MEDS: CHOLESTYRAMINE LIGHT 4 GM PKT PO SCH ×2 (08:02→18:04)
[2020-10-06] MEDS: METOPROLOL TARTRATE 25 MG TAB PO SCH ×2 (08:03→21:26)
[2020-10-06] MEDS: PANTOprazole 40 MG TAB PO SCH ×2 (08:08→21:26)
[2020-10-06 08:12] LABS: Alanine Aminotransferase 16 U/L (12-78); Albumin Globulin Ratio 0.8 (0.9-2); Albumin Level 2.9 gm/dl (3.4-5.0); Alkaline Phosphatase 183 U/L (45-117); Aspartate Aminotransferase 12 U/L (15-37); BUN Creatinine Ratio 9.4 (10-20); Bilirubin Direct < 0.1 mg/dl (0-0.2); Bilirubin,Total 0.2 mg/dl (0.2-1); Blood Urea Nitrogen 49 mg/dl (7-18); C Reactive Protein 0.88 mg/dl (0-0.29); Calcium 8.2 mg/dl (8.5-10.1); Carbon Dioxide 19 mmol/L (21-32); Chloride 112 mmol/L (98-107); Creatinine Clr Calc Pharmacy 10.3 ml/min; Est GFR (African American) 9.1; Est GFR (Non-African American) 7.9; Globulin 3.5 gm/dl (2.5-4.0); Glucose 76 mg/dl (70-99); Lipase 438 U/L (73-393); Magnesium 1.2 mg/dl (1.8-2.4); Potassium 4.2 mmol/L (3.5-5.1); Sodium 141 mmol/L (136-145); Total Protein 6.4 gm/dl (6.4-8.2)
--- NOTE | 2020-10-06 08:23 | XRay Report ---
XR chest 1V portable CLINICAL HISTORY: Acute renal insufficiency. Congestive heart failure. COMPARISON STUDY: 10/04/2020 FINDINGS: The cardiac and mediastinal contours are normal. There is no evidence of focal pulmonary co nsolidation. There is no evidence of failure. No pleural effusions are visualized.[A small hiatal her gabriele is suspected. IMPRESSION: No active disease in the chest. ACT 112: Negative or not required by law. Electronically signed by: Hank Coronado M.D. 10/06/2020 8:22 AM
[2020-10-06] MEDS: INSULIN ASPART 100 UNITS/ML 3 ML PEN SC SCH ×4 (08:40→21:41)
[2020-10-06 08:47] LABS: Estimated Average Glucose 114 mg/dl; Hemoglobin A1C 5.6 % (4.5-5.6)
--- NOTE | 2020-10-06 11:14 | Nephrology Progress Note ---
Date of Service October 06, 2020 Assessment & Plan (1) Acute renal failure: Likely prerenal in the setting of nausea vomiting and decreased oral intake. Denied taking any NSAIDs Renal functions continue to improve with fluid resuscitation, sodium and chloride is now creeping up will change normal saline to half-normal saline, with the rate of 100 mils an hour. Oral intake has improved, UOP has improved as well Hyperkalemia has resolved, keep on with holding lisinopril, until renal function stabilizes Daily BMPs. Unlikely she will require dialysis during this admission but will keep a close eye on this. (2) Acute hyperkalemia: Secondary to renal failure, it was also on potassium supplements and CHERY. With stopping the supplements and these. Resolved with medical management (3) Metabolic acidosis: Secondary to PERRI Bicarbonate now 19, Decrease the bicarbonate to twice daily. Admission and Anticipated Discharge Date Admission Date: October 04, 2020 Subjective As per nursing staff, Abdominal pain resolved. Oral intake has improved around 25%. Urine output has been good Review of Systems Review of Systems: All systems reviewed & are unremarkable except as noted in HPI & below and Other As per nursing staff Physical Exam Physical Exam: Not done , Covid PPE saving measures Results & Data ([facility]) Vital Signs (Past 12 Hours) Vital Signs Temp Pulse Pulse Resp BP Pulse Ox 10/06/20 07:34 36.6 C 87 15 101/55 L 95 10/06/20 07:29 101 H 10/06/20 03:46 36.5 C 98 H 17 98/58 L 98 10/05/20 23:29 36.7 C 115 H 18 94/56 L 96 Laboratory Results 10/06/20 06:29 10/06/20 06:29 (1) Acute renal failure Acute renal failure type: unspecified Qualified Code(s): N17.9 - Acute kidney failure, unspecified
[2020-10-06] MEDS: SODIUM CHLORIDE 0.45 % 1,000 ML IV SCH ×2 (12:58→21:52)
[2020-10-06] MEDS: ACETAMINOPHEN 1000 MG/100 ML IV IV PRN ×2 (17:07→23:25)
[2020-10-06] MEDS ORDERED: SODIUM BICARBONATE 650 MG TAB PO SCH (21:00)
--- NOTE | 2020-10-06 21:08 | Hospitalist Progress Note ---
Date of Service October 06, 2020 Assessment & Plan (1) Acute kidney injury: Recent PERRI during hospitalization at [facility] [place]25/20 requiring short term hemodialysis. Serum creatinine was 1.1 on 09/25/20. Presented to ED with nausea, vomiting, weakness. BUN 61, creatinine 9.97 with associated hyperkalemia and metabolic acidosis. CT demonstrated left renal calculi without ureteral obstruction or hydronephrosis. Nephrology consulted. Received IV fluids. Creatinine this morning = 5.26. Ongoing management per Nephrology. (2) Acute hyperkalemia: K was 6.9 at time of presentation. Received calcium gluconate, D50/insulin, patiromer calcium sorbitex, and bicarb. Lisinopril and KCl stopped. K this morning = 4.2. (3) Metabolic acidosis: Associated with PERRI. Management per Nephrology. (4) COVID-19: SARS-CoV-2 PCR positive. (PCR negative 09/10/20; Ag negative 09/17/20) Patient not aware of any exposure to COVID-19. No acute respiratory symptoms; O2 sats good on RA. GI symptoms could be secondary to COVID-19. Lymphs 1220 >> 1240. CRP 0.88. Procalcitonin 0.06. COVID-specific therapies not indicated at this time. Continue to monitor pulmonary status. (5) CHF (congestive heart failure): History of CHF. Compensated. Follow. (6) Hypertension: Lisinopril stopped because of PERRI & hyperkalemia. Managed with metoprolol. Reduce dose because of hypotension. (7) COPD (chronic obstructive pulmonary disease): Pulmonary status stable. (8) Chronic respiratory failure with hypoxia: Records indicate chronic hypoxia on home O2. Now maintaining sats on RA. Need to clarify history. (9) Diabetes mellitus, type 2: DM type 2 usually managed with glipizide. Hgb A1c = 5.6. Hold glipizide during hospital stay. Insulin coverage as needed. FBS today = 80. (10) DVT prophylaxis: SQ heparin. (11) Discharge planning issues: Anticipated discharge to home. Internal Medicine follow-up with Dr. Chand. Admission and Anticipated Discharge Date Admission Date: October 04, 2020 Subjective Recheck for acute kidney injury, hyperkalemia, COVID-19, and other problems. Patient seen in their room around 1520. Persistent nausea. No further emesis. Chronic loose stools. Persistent left-sided abdominal pain. Review of Systems: Constitutional- no fever. Cardiac- no chest pain. Pulmonary- no cough or SOB. GI- as noted above. - Purvis cath. Otherwise, as noted above. Physical Exam Constitutional: no acute distress Eyes: + anicteric sclerae Respiratory: normal respiratory effort, lungs clear to auscultation Cardiovascular: Rate/Rhythm: regular rate and regular rhythm Heart Sounds: no cardiac rub Vessels: no JVD Extremities: no calf tenderness and no edema Gastrointestinal (Abdomen): Inspection/Auscultation: abdomen not distended Percussion/Palpation: + abdomen tender (moderate left-sided tenderness without rebound) and abdomen soft Musculoskeletal: Extremities: no cyanosis Skin: no rashes, warm and dry Psychiatric: Orientation: alert and oriented x 3 Genitourinary: + bladder abnormal to inspection (Purvis cath) Results & Data Results & Data ([facility]) Vital Signs (Past 12 Hours) Vital Signs Temp Pulse Pulse Resp BP Pulse Ox 10/06/20 19:48 36.8 C 89 18 108/65 94 10/06/20 15:35 37.1 C 94 H 18 93/63 L 96 10/06/20 11:12 36.5 C 82 21 117/86 98 Laboratory Results 10/06/20 06:29 10/06/20 06:29
[2020-10-06] MEDS: ATORVASTATIN 40 MG TAB PO SCH (21:26)
[2020-10-06] MEDS: CLOPIDOGREL BISULFATE 75 MG TAB PO SCH (21:26)
[2020-10-06] MEDS: DOXEPIN HCL 50 MG CAPSULE PO SCH (21:27)
[2020-10-06] MEDS ORDERED: ONDANSETRON INJ 2 MG/ML 2 ML VIAL IV STA (21:38)
[2020-10-07] MEDS ORDERED: SODIUM CHLORIDE 0.9% 500 ML IV SCH (06:00)
[2020-10-07 06:34] LABS: Basophils # (auto) 0.01 K/uL (0-0.2); Basophils % (auto) 0.3 %; Eosinophils # (auto) 0.26 K/uL (0-0.5); Eosinophils % (auto) 7.1 %; Hemoglobin 9.7 g/dL (12.0-16.0); Immature Granulocytes # (auto) 0.01 K/uL (0.00-0.02); Immature Granulocytes % (auto) 0.3 %; Lymphocytes # (auto) 1.58 K/uL (1.2-3.4); Lymphocytes % (auto) 43.1 %; Mean Corpuscular Hemoglobin 29.5 pg (25-34); Mean Corpuscular Hgb Conc 30.3 g/dL (32-36); Mean Corpuscular Volume 97.3 fL (80-100); Mean Platelet Volume 11.1 fL (7.4-10.4); Monocytes # (auto) 0.49 K/uL (0.11-0.59); Monocytes % (auto) 13.4 %; Neutrophils # (auto) 1.32 K/uL (1.4-6.5); Neutrophils % (auto) 35.8 %; Platelet Count 182 K/uL (130-400); RDW Coefficient of Variation 14.3 % (11.5-14.5); RDW Standard Deviation 51.1 fL (36.4-46.3); Red Blood Count 3.29 M/uL (4.2-5.4); White Blood Count 3.67 K/uL (4.8-10.8)
[2020-10-07 06:54] LABS: BUN Creatinine Ratio 12.5 (10-20); Calcium 7.7 mg/dl (8.5-10.1); Creatinine Clr Calc Pharmacy 18.6 ml/min; Est GFR (African American) 18.7; Est GFR (Non-African American) 16.1; Magnesium 1.2 mg/dl (1.8-2.4); Potassium 4.1 mmol/L (3.5-5.1)
[2020-10-07] MEDS: [UNRECOGNIZED DRUG - REMARK] SCH ×4 (07:16→23:49)
[2020-10-07] MEDS: CHOLESTYRAMINE LIGHT 4 GM PKT PO SCH ×2 (08:41→18:14)
[2020-10-07] MEDS: SODIUM CHLORIDE 0.45 % 1,000 ML IV SCH (08:43)
[2020-10-07] MEDS: INSULIN ASPART 100 UNITS/ML 3 ML PEN SC SCH ×4 (08:43→20:46)
[2020-10-07] MEDS: PANTOprazole 40 MG TAB PO SCH ×2 (08:46→20:36)
[2020-10-07] MEDS: OXcarbazepine 150 MG TABLET PO SCH ×2 (08:46→20:35)
[2020-10-07] MEDS: CHOLECALCIFEROL 1,000 UNITS 25 MCG TAB PO SCH (08:46)
[2020-10-07] MEDS: DULoxetine HCL 60 MG CAP PO SCH (08:46)
[2020-10-07] MEDS: METOPROLOL TARTRATE 25 MG TAB PO SCH ×2 (08:46→20:35)
[2020-10-07] MEDS: HEPARIN SOD 5,000 UNIT/0.5 ML VIAL SQ SCH ×2 (08:47→20:36)
[2020-10-07] MEDS: SACCHAROMYCES BOULARDII 250 MG CAP PO SCH ×2 (08:48→20:36)
[2020-10-07] MEDS: SODIUM BICARBONATE 650 MG TAB PO SCH ×2 (08:51→20:33)
[2020-10-07] MEDS ORDERED: MAGNESIUM SULFATE / D5W 1 GM/100 ML BAG IV ONE (09:00)
[2020-10-07] MEDS: LACTATED RINGER'S 1,000 ML IV SCH ×2 (10:05→20:34)
[2020-10-07] MEDS: MAGNESIUM CHLORIDE 64MG DELAYED REL TAB PO SCH ×3 (10:07→20:34)
[2020-10-07] MEDS ORDERED: LOPERAMIDE HCL 2 MG CAP PO PRN (10:22)
--- NOTE | 2020-10-07 10:46 | Nephrology Progress Note ---
Date of Service October 07, 2020 Assessment & Plan (1) Acute renal failure: Patient with PERRI likely due to ischemic ATN in setting of hypotension. Patient had diarrhea and vomiting for several days prior to admission. Blood pressure is acceptable now although still on the lower side. Creatinine downtrending to 2.9 today. No indication for dialysis. Electrolytes are stable. -We will change fluids to Ringer's lactate at 100 mL/h -Daily BMP -Monitor input output (2) Acute hyperkalemia: Potassium is improved, 4.1 today Monitor with daily BMP (3) Metabolic acidosis: Secondary to PERRI Bicarbonate now 19, Patient is on sodium bicarbonate p.o, continue. Admission and Anticipated Discharge Date Admission Date: October 04, 2020 Subjective Seen in follow-up for acute kidney injury. She feels well denies any shortness of breath. Still has diarrhea. She is also complaining of left flank pain. No vomiting. Creatinine downtrending. Review of Systems Review of Systems: All systems reviewed & are unremarkable except as noted in HPI & below Physical Exam Physical Exam: General exam: Appears comfortable, no acute distress HEENT: Pupils are equal and reactive to light Neck: No JVD, neck is supple trachea is midline Respiratory system: Clear breath sounds bilaterally. Gastrointestinal: Abdomen is soft, non distended, non tender, bowel sounds are present CVS: Regular rate and rhythm. No murmurs, rubs or gallops Musculoskeletal: No joint or muscle tenderness. Left flank tenderness Extremities: Non tender, no edema, peripheral pulses are present Neuro: Oriented, no tremors, no focal neurological deficits Skin: No rashes Results & Data ([facility]) Vital Signs (Past 12 Hours) Vital Signs Temp Pulse Pulse Pulse Resp BP Pulse Ox 10/07/20 08:00 77 10/07/20 07:24 36.7 C 75 16 90/65 L 96 10/07/20 05:53 74 16 110/62 94 10/07/20 04:00 36.5 C 73 16 78/50 L 95 10/07/20 00:08 101 H 10/06/20 23:13 37.1 C 95 H 18 116/74 95 Laboratory Results 10/07/20 06:01 10/07/20 06:01 WBC 3.67 L RBC 3.29 L MCV 97.3 MCH 29.5 MCHC 30.3 L RDW Std Deviation 51.1 H RDW Coeff of Teresa 14.3 Plt Count 182 MPV 11.1 H (1) Acute renal failure Acute renal failure type: unspecified Qualified Code(s): N17.9 - Acute kidney failure, unspecified
[2020-10-07] MEDS: ACETAMINOPHEN 325 MG TAB PO PRN (16:08)
--- NOTE | 2020-10-07 18:49 | Hospitalist Progress Note ---
Date of Service October 07, 2020 Assessment & Plan (1) Acute kidney injury: Acute Kidney Injury Likely due to Ischemic ATN Chronic diarrhea is contributing as well Hospitalization at [facility] [place] 09/17/20 - 09/25/20 requiring short term hemodialysis. -CT ABD:Near complete resolution of hemorrhage within the left renal cyst on CT of September 17, 2020. Adjacent hemorrhage has resolved. Subacute healing fractures of the left seventh through 11th ribs. Status post subtotal colectomy. No bowel obstruction. Redemonstration of multiple calculi within a chronically dilated left renal pelvis. No ureteral calculi. -Cr:9.97>7.75>5.26>2.91 -Appreciate Nephrology Input -Continue IV fluids. -Monitor renal function -Avoid Nephrotoxic agents as able (2) Acute hyperkalemia: Acute hyperkalemia Secondary to above Received calcium gluconate, D50/insulin, patiromer calcium sorbitex, and bicarb. Lisinopril and Potassium supplements held Monitor Potassium (3) Metabolic acidosis: Secondary to PERRI Management per Nephrology Continue sodium bicarbonate (4) COVID-19: SARS-CoV-2 PCR positive. (PCR negative 09/10/20; Ag negative 09/17/20) No acute respiratory symptoms; O2 sats good on RA. ? GI symptoms could be secondary to COVID-19. Lymphs 1220 >> 1240. CRP 0.88. Procalcitonin 0.06. No COVID treatment indicated currently Monitor (5) CHF (congestive heart failure): H/O CHF Compensated Monitor (6) Hypertension: Lisinopril held due to PERRI & hyperkalemia. Continue metoprolol with holding parameters due to relatively low BP (7) COPD (chronic obstructive pulmonary disease): stable. (8) Chronic respiratory failure with hypoxia: Records indicate chronic hypoxia on home Oxygen Currently saturating well on room air (9) Diabetes mellitus, type 2: DM II Hold PO Meds Hgb A1c = 5.6. Insulin coverage as needed. (10) DVT prophylaxis: Heparin SQ (11) Discharge planning issues: Anticipated discharge to home. Internal Medicine follow-up with Dr. Chand. Admission and Anticipated Discharge Date Admission Date: October 04, 2020 Subjective Patient is seen and examined at bedside Reports mild left sided abd pain Reports chronic diarrhea which is unchanged Poor appetite Offers no other complaints Review of Systems Review of Systems: All systems reviewed & are unremarkable except as noted in HPI & below Physical Exam Physical Exam: Physical Exam: Vitals signs as noted above General Appearance:Morbidly Obese, no apparent distress Head: normocephalic, Atraumatic Eyes: normal inspection, EOMI Neck: supple, Trachea midline Respiratory/Chest: Normal breath sounds, CTA, No accessory muscle use Cardiovascular: S1, S2, No murmur Abdomen/GI:Soft, left sided mild tender, Bowel sounds present Extremities/Musculoskelatal:normal inspection, no edema Neurologic/Psych:AAOX3, grossly no focal neurological deficits Skin: normal color, warm Results & Data Results & Data ([facility]) Vital Signs (Past 12 Hours) Vital Signs Temp Pulse Pulse Pulse Resp BP BP 10/07/20 16:09 36.9 C 85 87 16 123/82 10/07/20 16:07 78 10/07/20 11:01 37.1 C 76 17 116/72 10/07/20 08:00 77 10/07/20 07:24 36.7 C 75 16 90/65 L Pulse Ox 10/07/20 16:09 98 10/07/20 16:07 10/07/20 11:01 96 10/07/20 08:00 10/07/20 07:24 96 Laboratory Results Short CBC 10/07/20 Range/Units 06:01 WBC 3.67 L (4.8-10.8) K/uL Hgb 9.7 L (12.0-16.0) g/dL Hct 32.0 L (37-47) % Plt Count 182 (130-400) K/uL BMP 10/07/20 06:01 Sodium 140 Potassium 4.1 Chloride 115 H Carbon Dioxide 19 L BUN 36 H Creatinine 2.91 H D Glucose 80 Calcium 7.7 L
[2020-10-07] MEDS: CLOPIDOGREL BISULFATE 75 MG TAB PO SCH (20:36)
[2020-10-07] MEDS: ATORVASTATIN 40 MG TAB PO SCH (20:37)
[2020-10-07] MEDS: DOXEPIN HCL 50 MG CAPSULE PO SCH (20:38)
[2020-10-08] MEDS: ACETAMINOPHEN 325 MG TAB PO PRN ×2 (02:54→21:03)
[2020-10-08] MEDS: [UNRECOGNIZED DRUG - REMARK] SCH ×2 (07:56→16:08)
[2020-10-08] MEDS: OXcarbazepine 150 MG TABLET PO SCH ×2 (08:20→21:03)
[2020-10-08] MEDS: HEPARIN SOD 5,000 UNIT/0.5 ML VIAL SQ SCH ×2 (08:20→21:04)
[2020-10-08] MEDS: PANTOprazole 40 MG TAB PO SCH ×2 (08:20→21:03)
[2020-10-08] MEDS: METOPROLOL TARTRATE 25 MG TAB PO SCH ×2 (08:20→21:03)
[2020-10-08] MEDS: SACCHAROMYCES BOULARDII 250 MG CAP PO SCH ×2 (08:20→21:03)
[2020-10-08] MEDS: SODIUM BICARBONATE 650 MG TAB PO SCH ×2 (08:20→21:03)
[2020-10-08] MEDS: DULoxetine HCL 60 MG CAP PO SCH (08:21)
[2020-10-08] MEDS: MAGNESIUM CHLORIDE 64MG DELAYED REL TAB PO SCH ×3 (08:21→21:03)
[2020-10-08] MEDS: CHOLESTYRAMINE LIGHT 4 GM PKT PO SCH ×2 (08:21→16:24)
[2020-10-08] MEDS: CHOLECALCIFEROL 1,000 UNITS 25 MCG TAB PO SCH (08:21)
[2020-10-08] MEDS: INSULIN ASPART 100 UNITS/ML 3 ML PEN SC SCH ×4 (08:21→20:58)
[2020-10-08] MEDS: LACTATED RINGER'S 1,000 ML IV SCH ×2 (09:17→21:09)
--- NOTE | 2020-10-08 11:45 | Nephrology Progress Note ---
Date of Service October 08, 2020 Assessment & Plan (1) Acute renal failure: Patient with PERRI likely due to ischemic ATN in setting of hypotension. Patient had diarrhea and vomiting for several days prior to admission. Blood pressure is acceptable now although still on the lower side. Creatinine downtrending. No indication for dialysis. Electrolytes are stable. -If creatinine is downtrending today, patient can be discharged to get BMP outpatient on Tuesday and renal follow-up in 1 to 2 weeks -We will continue Ringer's lactate at 100 mL/h until the time of discharge -Daily BMP while in-house -Monitor input output (2) Acute hyperkalemia: Potassium is improved, 4.1 yesterday Monitor with daily BMP (3) Metabolic acidosis: Secondary to PERRI Bicarbonate now 19, Patient is on sodium bicarbonate p.o, discontinue sodium bicarbonate on discharge. Admission and Anticipated Discharge Date Admission Date: October 04, 2020 Subjective Seen in follow-up for PERRI. She feels better today. No shortness of breath. No vomiting. Diarrhea has subsided. Review of Systems Review of Systems: All systems reviewed & are unremarkable except as noted in HPI & below Physical Exam Physical Exam: General exam: Appears comfortable, no acute distress HEENT: Pupils are equal and reactive to light Neck: No JVD, neck is supple trachea is midline Respiratory system: Clear breath sounds bilaterally. Gastrointestinal: Abdomen is soft, non distended, non tender, bowel sounds are present CVS: Regular rate and rhythm. No murmurs, rubs or gallops Musculoskeletal: No joint or muscle tenderness Extremities: Non tender, no edema, peripheral pulses are present Neuro: Oriented, no tremors, no focal neurological deficits Skin: No rashes Results & Data ([facility]) Vital Signs (Past 12 Hours) Vital Signs Temp Pulse Resp BP Pulse Ox 10/08/20 11:39 36.8 C 71 22 119/72 99 10/08/20 07:27 36.7 C 96 H 20 126/75 97 10/08/20 02:25 36.7 C 92 H 19 123/82 99 (1) Acute renal failure Acute renal failure type: unspecified Qualified Code(s): N17.9 - Acute kidney failure, unspecified
[2020-10-08 11:48] LABS: BUN Creatinine Ratio 12.5 (10-20); Calcium 8.2 mg/dl (8.5-10.1); Est GFR (African American) 37.1; Magnesium 1.3 mg/dl (1.8-2.4); Potassium 3.9 mmol/L (3.5-5.1)
--- NOTE | 2020-10-08 16:22 | Hospitalist Progress Note ---
Date of Service October 08, 2020 Assessment & Plan (1) Acute kidney injury: Acute Kidney Injury Likely due to Ischemic ATN Chronic diarrhea is contributing as well Hospitalization at [facility] [place] 09/17/20 - 09/25/20 requiring short term hemodialysis. -CT ABD:Near complete resolution of hemorrhage within the left renal cyst on CT of September 17, 2020. Adjacent hemorrhage has resolved. Subacute healing fractures of the left seventh through 11th ribs. Status post subtotal colectomy. No bowel obstruction. Redemonstration of multiple calculi within a chronically dilated left renal pelvis. No ureteral calculi. -Cr:9.97>7.75>5.26>2.91>1.65 -Appreciate Nephrology Input -Continue IV fluids while hospitalized -Monitor renal function -Avoid Nephrotoxic agents as able -Needs repeat BMP in 5 days and follow-up with nephrology in 1 to 2 weeks upon discharge (2) Acute hyperkalemia: Acute hyperkalemia Secondary to above Received calcium gluconate, D50/insulin, patiromer calcium sorbitex, and bicarb. Lisinopril and Potassium supplements held Monitor Potassium levels Hypomagnesemia Replete electrolytes as needed. (3) Metabolic acidosis: Secondary to PERRI Management per Nephrology Continue sodium bicarbonate while hospitalized only (4) COVID-19: SARS-CoV-2 PCR positive. (PCR negative 09/10/20; Ag negative 09/17/20) No acute respiratory symptoms; O2 sats good on RA. ? GI symptoms could be secondary to COVID-19. Lymphs 1220 >> 1240. CRP 0.88. Procalcitonin 0.06. No COVID treatment indicated currently Monitor (5) CHF (congestive heart failure): H/O CHF Compensated Monitor (6) Hypertension: Lisinopril held due to PERRI & hyperkalemia. Continue metoprolol with holding parameters due to relatively low BP (7) COPD (chronic obstructive pulmonary disease): stable. (8) Chronic respiratory failure with hypoxia: Records indicate chronic hypoxia on home Oxygen Saturating well on room air (9) Diabetes mellitus, type 2: DM II Hold PO Meds Hgb A1c = 5.6. Insulin coverage as needed. (10) DVT prophylaxis: Heparin SQ (11) Discharge planning issues: Discharge home with home health as able Internal Medicine follow-up with Dr. Chand. Admission and Anticipated Discharge Date Admission Date: October 04, 2020 Subjective Patient is seen and examined at bedside Had 1 loose BM today No new complaints Left flank/Abdominal pain is controlled Renal function continues to improve Discussed with nephrology today Offers no other complaints Review of Systems Review of Systems: All systems reviewed & are unremarkable except as noted in HPI & below Physical Exam Physical Exam: Physical Exam: Vitals signs as noted above General Appearance:Morbidly Obese, no apparent distress Head: normocephalic, Atraumatic Eyes: normal inspection, EOMI Neck: supple, Trachea midline Respiratory/Chest: Normal breath sounds, CTA, No accessory muscle use Cardiovascular: S1, S2, No murmur Abdomen/GI:Soft, left sided mild tender, Bowel sounds present Extremities/Musculoskelatal:normal inspection, no edema Neurologic/Psych:AAOX3, grossly no focal neurological deficits Skin: normal color, warm Results & Data Results & Data ([facility]) Vital Signs (Past 12 Hours) Vital Signs Temp Pulse Resp BP Pulse Ox 10/08/20 15:28 37.1 C 89 18 121/76 95 10/08/20 11:39 36.8 C 71 22 119/72 99 10/08/20 07:27 36.7 C 96 H 20 126/75 97 Laboratory Results BMP 10/08/20 08:47 Sodium 144 Potassium 3.9 Chloride 119 H Carbon Dioxide 18 L BUN 21 H Creatinine 1.65 H D Glucose 146 H Calcium 8.2 L
[2020-10-08] MEDS ORDERED: MAGNESIUM SULFATE / D5W 1 GM/100 ML BAG IV ONE (16:30)
[2020-10-08] MEDS: CLOPIDOGREL BISULFATE 75 MG TAB PO SCH (21:03)
[2020-10-08] MEDS: DOXEPIN HCL 50 MG CAPSULE PO SCH (21:03)
[2020-10-08] MEDS: ATORVASTATIN 40 MG TAB PO SCH (21:03)
[2020-10-09 06:40] LABS: Eosinophils # (auto) 0.27 K/uL (0-0.5); Eosinophils % (auto) 7.7 %; Hematocrit (blood only) 33.3 % (37-47); Hemoglobin 10.2 g/dL (12.0-16.0); Immature Granulocytes # (auto) 0.01 K/uL (0.00-0.02); Immature Granulocytes % (auto) 0.3 %; Lymphocytes # (auto) 1.48 K/uL (1.2-3.4); Lymphocytes % (auto) 42.2 %; Mean Corpuscular Hemoglobin 29.7 pg (25-34); Mean Corpuscular Hgb Conc 30.6 g/dL (32-36); Mean Corpuscular Volume 96.8 fL (80-100); Mean Platelet Volume 11.6 fL (7.4-10.4); Monocytes % (auto) 8.5 %; Neutrophils # (auto) 1.45 K/uL (1.4-6.5); Neutrophils % (auto) 41.3 %; Platelet Count 167 K/uL (130-400); RDW Standard Deviation 49.8 fL (36.4-46.3); Red Blood Count 3.44 M/uL (4.2-5.4); White Blood Count 3.51 K/uL (4.8-10.8)
[2020-10-09 07:17] LABS: BUN Creatinine Ratio 11.3 (10-20); Calcium 8.6 mg/dl (8.5-10.1); Creatinine Clr Calc Pharmacy 42.1 ml/min; Est GFR (Non-African American) 43.1; Magnesium 1.5 mg/dl (1.8-2.4); Potassium 4.1 mmol/L (3.5-5.1)
[2020-10-09] MEDS: INSULIN ASPART 100 UNITS/ML 3 ML PEN SC SCH ×2 (08:10→12:19)
[2020-10-09] MEDS ORDERED: MAGNESIUM SULFATE / D5W 1 GM/100 ML BAG IV ONE (08:21)
[2020-10-09] MEDS: METOPROLOL TARTRATE 25 MG TAB PO SCH (08:23)
[2020-10-09] MEDS: LACTATED RINGER'S 1,000 ML IV SCH (08:23)
[2020-10-09] MEDS: SACCHAROMYCES BOULARDII 250 MG CAP PO SCH (08:24)
[2020-10-09] MEDS: DULoxetine HCL 60 MG CAP PO SCH (08:25)
[2020-10-09] MEDS: CHOLECALCIFEROL 1,000 UNITS 25 MCG TAB PO SCH (08:25)
[2020-10-09] MEDS: OXcarbazepine 150 MG TABLET PO SCH (08:25)
[2020-10-09] MEDS: MAGNESIUM CHLORIDE 64MG DELAYED REL TAB PO SCH ×2 (08:26→14:05)
[2020-10-09] MEDS: PANTOprazole 40 MG TAB PO SCH (08:26)
[2020-10-09] MEDS: SODIUM BICARBONATE 650 MG TAB PO SCH (08:26)
[2020-10-09] MEDS: HEPARIN SOD 5,000 UNIT/0.5 ML VIAL SQ SCH (08:26)
[2020-10-09] MEDS: ACETAMINOPHEN 325 MG TAB PO PRN (08:30)
[2020-10-09] MEDS: CHOLESTYRAMINE LIGHT 4 GM PKT PO SCH (10:15)
[2020-10-09 11:47] VITALS: BP 136/87; TEMP 98.8; O2SAT 97
--- NOTE | 2020-10-09 12:46 | Hospitalist Progress Note ---
Date of Service October 09, 2020 Assessment & Plan (1) Acute kidney injury: Acute Kidney Injury Likely due to Ischemic ATN Chronic diarrhea is contributing as well [place] [facility] [place]20 requiring short term hemodialysis. -CT ABD:Near complete resolution of hemorrhage within the left renal cyst on CT of September 17, 2020. Adjacent hemorrhage has resolved. Subacute healing fractures of the left seventh through 11th ribs. Status post subtotal colectomy. No bowel obstruction. Redemonstration of multiple calculi within a chronically dilated left renal pelvis. No ureteral calculi. -Cr:9.97>7.75>5.26>2.91>1.65>1.29 -Appreciate Nephrology Input -Received IV fluids -Monitor renal function -Avoid Nephrotoxic agents as able -Needs repeat BMP in 5 days and follow-up with nephrology in 1 to 2 weeks upon discharge -Plan to discontinue lisinopril, Potassium supplements upon discharge (2) Acute hyperkalemia: Acute hyperkalemia Secondary to above Received calcium gluconate, D50/insulin, patiromer calcium sorbitex, and bicarb. Lisinopril and Potassium supplements held Monitor Potassium levels Resolved Hypomagnesemia Chronic Replete electrolytes as needed. (3) Metabolic acidosis: Secondary to PERRI Management per Nephrology Discontinue sodium bicarbonate (4) COVID-19: SARS-CoV-2 PCR positive. (PCR negative 09/10/20; Ag negative 09/17/20) No acute respiratory symptoms; O2 sats good on RA. ? GI symptoms could be secondary to COVID-19. Lymphs 1220 >> 1240. CRP 0.88. Procalcitonin 0.06. No COVID treatment indicated currently Monitor (5) CHF (congestive heart failure): H/O CHF Compensated Monitor (6) Hypertension: Lisinopril held due to PERRI & hyperkalemia. Continue metoprolol with holding parameters due to relatively low BP (7) COPD (chronic obstructive pulmonary disease): stable. (8) Chronic respiratory failure with hypoxia: Records indicate chronic hypoxia on home Oxygen Saturating well on room air (9) Diabetes mellitus, type 2: DM II Hold PO Meds Hgb A1c = 5.6. Insulin coverage as needed. (10) DVT prophylaxis: Heparin SQ (11) Discharge planning issues: Discharge home with home health today Internal Medicine follow-up with Dr. Chand. Admission and Anticipated Discharge Date Admission Date: October 04, 2020 Subjective Patient is seen and examined at bedside States appetite is much better Discussed with Nephrology today Renal function continues to improve Left flank/Abdominal pain is minimal No new complaints Eager to get discharged Review of Systems Review of Systems: All systems reviewed & are unremarkable except as noted in HPI & below Physical Exam Physical Exam: Physical Exam: Vitals signs as noted above General Appearance:Morbidly Obese, no apparent distress Head: normocephalic, Atraumatic Eyes: normal inspection, EOMI Neck: supple, Trachea midline Respiratory/Chest: Normal breath sounds, CTA, No accessory muscle use Cardiovascular: S1, S2, No murmur Abdomen/GI:Soft, left sided mild tender, Bowel sounds present Extremities/Musculoskelatal:normal inspection, no edema Neurologic/Psych:AAOX3, grossly no focal neurological deficits Skin: normal color, warm Results & Data Results & Data ([place]) Vital Signs (Past 12 Hours) Vital Signs Temp Pulse Resp BP Pulse Ox 10/09/20 11:44 37.1 C 80 22 136/87 97 10/09/20 07:43 36.7 C 79 20 133/84 96 10/09/20 03:53 36.7 C 70 16 109/65 94 Laboratory Results Short CBC 10/09/20 Range/Units 05:40 WBC 3.51 L (4.8-10.8) K/uL Hgb 10.2 L (12.0-16.0) g/dL Hct 33.3 L (37-47) % Plt Count 167 (130-400) K/uL BMP 10/09/20 05:40 Sodium 146 H Potassium 4.1 Chloride 120 H Carbon Dioxide 22 BUN 15 Creatinine 1.29 H D Glucose 85 Calcium 8.6
[2020-10-09 14:36] VITALS: PULSE 85
--- NOTE | 2020-10-09 16:21 | Discharge Summary ---
Date of Service October 09, 2020 Admission HPI Per Admitting Provider She is a 64 years old obese female with significant complicated past medical history of hypertension, hyperlipidemia, CAD with history of congestive heart failure, COPD/asthma ,CALI, benign tremors involving mainly the upper extremities, history of recent acute renal failure on CKD stage III which briefly required hemodialysis during hospitalization in [facility] in early September and recent history of hemorrhagic left renal cyst which required IR intervention in [place] from September 17 to September 25. Since discharge from the hospital she has been having ongoing pain involving the left flank and left abdomen and the pain has been worse recently with worsening symptoms of nausea vomiting and increasing pain as of today. Denies any fever and/or chills but complains to have minimal cough without any significant shortness of breath. She was noted to have PERRI with hyperkalemia and apparently the Covid test came back positive. His CT scan did show improvement of the hemorrhage of left renal cyst. The case was discussed by the ER physician with the reconciliation specialist and was admitted to Covid unit for continuation of care. Admission Exam Per Admitting Provider Physical Exam Physical Exam: Lying in bed with stress due to left-sided abdominal pain and tremors Constitutional: well developed, well nourished, + acute distress (Secondary to left-sided abdominal pain with nausea and vomiting), + ill appearing and + obese Eyes: PERRL, conjunctivae normal, anicteric sclerae ENMT: external ear and nose normal, oropharynx normal Neck: trachea midline, no thyromegaly Respiratory: no respiratory distress Auscultation: lungs clear to auscultation bilaterally and + diminished lung sounds; no crackles and no wheezes Cardiovascular: Rate/Rhythm: regular rate and regular rhythm Heart Sounds: no murmur Extremities: + edema (Trace to 1+ edema bilaterally) Gastrointestinal (Abdomen): Inspection/Auscultation: normal bowel sounds; abdomen not distended Percussion/Palpation: + abdomen tender (Minimally tender left flank) and abdomen soft Musculoskeletal: No acute arthritis in any joint Neurologic: Alert, awake and oriented x3. No focal sensory and motor deficit appreciated. Generally weak Lymphatic: no cervical or axillary lymphadenopathy Principal Diagnosis Acute kidney injury Acute hyperkalemia Hypomagnesemia Metabolic acidosis COVID-19 infection Discharge Data Allergies Allergy/AdvReac Type Severity Reaction Status Date / Time salicylates Allergy Severe SHORTNESS Verified 09/17/20 13:00 OF BREATH Iodinated Contrast Media Allergy Intermediate EYES Verified 09/17/20 13:00 SWELLING/Hives amoxicillin [From Augmentin] Allergy Mild Rash Verified 09/17/20 13:00 aspirin Allergy Mild FACIAL Verified 09/17/20 13:00 SWELLING clavulanic acid Allergy Mild Rash Verified 09/17/20 13:00 [From Augmentin] hydromorphone Allergy Mild RASH/ITCHIN Verified 09/17/20 13:00 G fentanyl Allergy itching/felt Verified 09/17/20 13:00 like throat closing meperidine AdvReac Intermediate ITCH Verified 09/17/20 13:00 morphine AdvReac Intermediate ITCH Verified 09/17/20 13:00 tramadol AdvReac Mild itch Verified 09/17/20 13:00 Consultations 10/04/20 16:33 ED Decision to Admit Stat 10/04/20 18:24 Consult Nephrology Routine Procedures Performed CT ABD:Near complete resolution of hemorrhage within the left renal cyst on CT of September 17, 2020. Adjacent hemorrhage has resolved. Subacute healing fractures of the left seventh through 11th ribs. Status post subtotal colectomy. No bowel obstruction. Redemonstration of multiple calculi within a chronically dilated left renal pelvis. No ureteral calculi. Ordered Studies 10/04/20 14:31 CT abd pelvis wo con Stat Hospital Course (1) Acute kidney injury: Acute Kidney Injury Likely due to Ischemic ATN Chronic diarrhea is contributing as well [place] [facility] [place] requiring short term hemodialysis. -CT ABD:Near complete resolution of hemorrhage within the left renal cyst on CT of September 17, 2020. Adjacent hemorrhage has resolved. Subacute healing fracture s of the left seventh through 11th ribs. Status post subtotal colectomy. No bowel obstruction. Redemonstration of multiple calculi within a chronically dilated left renal pelvis. No ureteral calculi. -Cr:9.97>7.75>5.26>2.91>1.65>1.29 -Appreciate Nephrology Input -Received IV fluids -Monitor renal function -Avoid Nephrotoxic agents as able -Needs repeat BMP in 5 days and follow-up with nephrology in 1 to 2 weeks upon discharge -Plan to discontinue lisinopril, Potassium supplements upon discharge (2) Acute hyperkalemia: Acute hyperkalemia Secondary to above Received calcium gluconate, D50/insulin, patiromer calcium sorbitex, and bicarb. Lisinopril and Potassium supplements held Monitor Potassium levels Resolved Hypomagnesemia Chronic Replete electrolytes as needed. (3) Metabolic acidosis: Secondary to PERRI Management per Nephrology Discontinue sodium bicarbonate (4) COVID-19: SARS-CoV-2 PCR positive. (PCR negative 09/10/20; Ag negative 09/17/20) No acute respiratory symptoms; O2 sats good on RA. ? GI symptoms could be secondary to COVID-19. Lymphs 1220 >> 1240. CRP 0.88. Procalcitonin 0.06. No COVID treatment indicated currently Monitor (5) CHF (congestive heart failure): H/O CHF Compensated Monitor (6) Hypertension: Lisinopril held due to PERRI & hyperkalemia. Continue metoprolol with holding parameters due to relatively low BP (7) COPD (chronic obstructive pulmonary disease): stable. (8) Chronic respiratory failure with hypoxia: Records indicate chronic hypoxia on home Oxygen Saturating well on room air (9) Diabetes mellitus, type 2: DM II Hold PO Meds Hgb A1c = 5.6. Insulin coverage as needed. (10) DVT prophylaxis: Heparin SQ (11) Discharge planning issues: Discharge home with home health today Internal Medicine follow-up with Dr. Chand. Total Time Total Time Spent Total Time Spent (In Minutes): 41 minutes Total Time Includes: Examination of the Patient, Discharge Planning, Medication Reconciliation, Communication With Other Providers and Other Discharge Plan Discharge Items Patient Disposition: Home - Home Health Services Reason For Visit: PERRI,HYPERKALEMIA,COVID-19 INFECTION Discharge Diagnosis: Acute kidney injury Acute hyperkalemia Hypomagnesemia Metabolic acidosis COVID-19 infection Activity: Per Instructions section Exercise/Sports: Gradually increase as tolerated Non-emergency contact: Primary Care Provider and Sales Order Clerk Call non-emergency contact if: you have any medication questions, your symptoms worsen, your pain is not controlled, your pain is worsening, your pain is unusual for you, your pain is concerning for you and you have a fever Follow-up/Referrals: Lo Chand DO [Primary Care Provider] - (Date & Time 10/13/2020 12:40 PM Provider Toño Naidu MD Department Internal Medicine [facility] PLEASE NOTE THAT THIS IS A TELEPHONE APPOINTMENT. YOUR PROVIDER WILL CALL YOU AT THE APPOINTMENT TIME. IF YOU HAVE ANY QUESTIONS, PLEASE CALL ) Roxana Mitchell PA-C [Physician Title Processor] - (Date & Time 10/14/2020 11:00 AM Provider Roxana Mitchell PA-C Department Nephrology [facility] ) Diet: Carb Consistent or DM2 and Low Fiber Ambulatory Orders: Basic Metabolic Panel (Routine) Timeframe: 20201013 Location: Determined by Patient Ordered By: Danny Turner Magnesium (Routine) Timeframe: 20201013 Location: Determined by Patient Ordered By: Danny Turner Addtl Attending Provider Instructions: Follow-up with your primary care physician Dr. Lo Chand on 10/13/2020 12:40 PM Follow-up with your reconciliation specialist Roxana Mitchell on 10/14/2020 11:00 AM Get Blood Test ( Basic Metabolic Panel, Magnesium Levels) in 5 days and follow up with your Sales Order Clerk with results. Seek immediate medical attention if your symptoms reoccur or worsen Home Isolation COVID-19 Instructions The following information about Home Isolation is from the CDC Website: https://www.cdc.gov/coronavirus/2019-ncov/hcp/uyjobpdk-rpffiid-uselzy.html Stay home except to get medical care People who are mildly ill with COVID-19 are able to isolate at home during their illness. You should restrict activities outside your home, except for getting medical care. Do not go to work, school, or public areas. Avoid using public transportation, ride-sharing, or taxis. Separate yourself from other people and animals in your home People: As much as possible, you should stay in a specific room and away from other people in your home. Also, you should use a separate bathroom, if available. Animals: You should restrict contact with pets and other animals while you are sick with COVID-19, just like you would around other people. Although there have not been reports of pets or other animals becoming sick with COVID-19, it is still recommended that people sick with COVID-19 limit contact with animals until more information is known about the virus. When possible, have another member of your household care for your animals while you are sick. If you are sick with COVID-19, avoid contact with your pet, including petting, snuggling, being kissed or licked, and sharing food. If you must care for your pet or be around animals while you are sick, wash your hands before and after you interact with pets and wear a face mask. Call ahead before visiting your doctor If you have a medical appointment, call the healthcare provider and tell them that you have or may have COVID-19. This will help the healthcare providers office take steps to keep other people from getting infected or exposed. Wear a face mask You should wear a face mask when you are around other people (e.g., sharing a room or vehicle) or pets and before you enter a healthcare providers office. If you are not able to wear a face mask (for example, because it causes trouble breathing), then people who live with you should not stay in the same room with you, or they should wear a face mask if they enter your room. Cover your coughs and sneezes Cover your mouth and nose with a tissue when you cough or sneeze. Throw used tissues in a lined trash can. Immediately wash your hands with soap and water for at least 20 seconds or, if soap and water are not available, clean your hands with an alcohol-based hand personnel interviewer that contains at least 60% alcohol. Clean your hands often Wash your hands often with soap and water for at least 20 seconds, especially after blowing your nose, coughing, or sneezing; going to the bathroom; and before eating or preparing food. If soap and water are not readily available, use an alcohol-based hand personnel interviewer with at least 60% alcohol, covering all s urfaces of your hands and rubbing them together until they feel dry. Soap and water are the best option if hands are visibly dirty. Avoid touching your eyes, nose, and mouth with unwashed hands. Avoid sharing personal household items You should not share dishes, drinking glasses, cups, eating utensils, towels, or bedding with other people or pets in your home. After using these items, they should be washed thoroughly with soap and water. Clean all high-touch surfaces everyday High touch surfaces include counters, tabletops, doorknobs, bathroom fixtures, toilets, phones, keyboards, tablets, and bedside tables. Also, clean any surfaces that may have blood, stool, or body fluids on them. Use a household cleaning spray or wipe, according to the label instructions. Labels contain instructions for safe and effective use of the cleaning product including precautions you should take when applying the product, such as wearing gloves and making sure you have good ventilation during use of the product. Monitor your symptoms Seek prompt medical attention if your illness is worsening (e.g., difficulty breathing).Beforeseeking care, call your healthcare provider and tell them that you have, or are being evaluated for, COVID-19. Put on a face mask before you enter the facility. These steps will help the healthcare providers office to keep other people in the office or waiting room from getting infected or exposed. Ask your healthcare provider to call the local or state health depart ment. Persons who are placed under active monitoring or facilitated self- monitoring should follow instructions provided by their local health department or occupational health professionals, as appropriate. When working with your local health department check their available hours. If you have a medical emergency and need to call 911, notify the dispatch personnel that you have, or are being evaluated for COVID-19. If possible, put on a face mask before emergency medical services arrive. Discontinuing home isolation Patients with confirmed COVID-19 should remain under home isolation precautions until the risk of secondary transmission to others is thought to be low. The decision to discontinue home isolation precautions should be made on a [id number] basis, in consultation with healthcare providers and state and [facility] health departments. Coronavirus disease 2019 (COVID-19) is a virus that causes a respiratory illness. It is caused by a coronavirus called 2019 novel coronavirus (2019- nCoV). There are many types of coronavirus. Coronaviruses are a very common cause of bronchitis. They may sometimes cause lung infection(pneumonia). Symptoms can range from mild to severe respiratory illness. These viruses are also foundin some animals. COVID-19 was first found in people in [facility], in late 2019. In 2020, several cases of COVID-19 have been confirmed in the [place] Public health officials are working to find the source. How the virus spreads is not yet fully known. It may be spread through droplets of fluid that a person coughs or sneezes into the air. It may be spread if you touch a surface with virus on it, such as a handle or object, and then touch your mouth. What are the symptoms of COVID-19? Some people have no symptoms or mild symptoms. Symptoms may appear 2 to 14 days after contact with the virus. Symptoms can include: Fever Coughing Trouble breathing What are possible complications from COVID-19? In many cases, this virus can cause infection (pneumonia) in both lungs. In some cases, this can cause . How is COVID-19 diagnosed? Your healthcare provider will ask about your symptoms. He or she will also ask about your recent travel and contact with sick people. Testing for the virus is only done through the [facility]. If yourhealthcare provider thinks you may have COVID- 19, he or she will work with your local health department and the CDC on testing. Follow all instructions from your healthcare provider. COVID-19 is diagnosed by: Nasal and throat swab. A cotton-tipped swab is wiped inside your nose or throat. This is done to check for viruses in your nasal mucus. Sputum culture. A small sample of mucus coughed from your lungs (sputum) is collected if you have a cough. It is checked for the virus. How is COVID-19 treated? There is currently no medicine to treat the virus. Treatment is done to help your body while it fights the virus. This is known as supportive care. Supportive care may include: Pain medicine. These include acetaminophen and ibuprofen. They are used to help ease pain and reduce fever. Bed rest. This helps your body fight the illness. For severe illness, you may need to stay in the hospital. Care during severe illness may include: IV (intravenous) fluids.These are given through a vein to help keep your body hydrated. Oxygen. Supplemental oxygen or ventilation with a breathing machine (ventilator) may be given. This is done to keep enough oxygen in your body. Are you at risk for COVID-19? If youve been to a place where people have been sick with this virus, you are at risk for infection. You are at risk if you: Recently traveled to an affected area Had contact with a sick person who recently traveled to this area Had contact with a person who was diagnosed with COVID-19 How can COVID-19 be prevented? There is no vaccine yet. The best prevention is to not have contact with the virus. The CDC advises that people should not travel to areas where there are COVID-19 outbreaks right now for any reason that is not urgent. To help prevent spreading the infection, wash your hands often, or use an alcohol-basedhand personnel interviewer. If you are in an area with COVID-19: Wash your hands often. Or use an alcohol-based hand personnel interviewer often. Only touch your eyes, nose, or mouth with clean hands. Dont have contact with people who are sick. Follow local instructions about being in public. For example, you may be told to not use public transport for a period of time. Stay away from markets that have live or animals. Wash your hands after touching any animals. Don't touch animals that may be sick. Dont share eating or drinking tools with sick people. Dont kiss someone who is sick. Clean surfaces often with disinfectant. If you were in an area with COVID-19 in the last 14 days: Call your healthcare provider. He or she can talk with local health staff to see what action may be needed. Follow all instructions from your provider. Take your temperature every morning and evening for at least 14 days. This is to check for fever. Keep a record of the readings. Keep watch for symptoms of the virus. Tell your provider right away if you have symptoms. If you were in an area with COVID-19 and have a fever or other symptoms: Dont panic. Keep in mind that other illnesses can cause similar symptoms. Stay away from work, school, and public places. Limit physical contact with family members. Don't kiss anyone or share eating or drinking utensils. Clean surfaces you touch with disinfectant. This is to help prevent the virus from spreading. Call your healthcare provider. Explain that you have been exposed to COVID-19 and have symptoms. Do this before going to any hospital. Wait for instructions. Keep in mind that healthcare staff may wear protective equipment such as masks, gowns, gloves, and eye protection. You may be put in a separate room. This is to prevent the possible virus from spreading. Tell the healthcare staff about recent travel. This includes local travel on public transport. Staff may need to find other people you have been in contact with. Follow all instructions the healthcare staff give you. If you have been diagnosed with COVID-19 Follow all instructions from your healthcare provider. Dont leave your home, except to get medical care. Call your healthcare providers office before going. They can prepare and give you instructions. This will help prevent the virus from spreading. Dont go to work, school, or public areas. Dont use public transport or taxis. Stay away from other people in your home. Have them wear face masks around you. Dont share household items or food. Wear a face mask if you can. This includes at home or in a medical facility. Cover your face with a tissue when you cough or sneeze. Throw the tissue away. Wash your hands. Wash your hands often. Caregivers should: Follow all instructions from healthcare staff. Wear a face mask and protective clothing as advised. Wash hands often. Keep track of the sick persons symptoms. Clean surfaces, fabrics, and laundry thoroughly. Keep other people away from the sick person. When to call your healthcare provider Call your healthcare provider: If youve recently traveled and have symptoms If you have been diagnosed with COVID-19 and your symptoms are worse To learn more To find out more about COVID-19, visit the CDC website at www.cdc.gov/coronavir us/2019-ncov/index.html. 6020-[address] [employer] [place] [address]. All rights reserved. This information is not intended as a substitute for professional medical care. Always follow your healthcare professional's instructions. This information has been adapted from [employer] Pending Studies at Discharge: No Stand-Alone Forms: My [facility]Ed Online Doctor, Smoking Cessation Medications and DC Order Prescriptions: Continued albuterol sulfate 90 mcg/actuation Hfa Aerosol Inhaler 2 puff INHALATION Q4H PRN (Reason: Shortness Of Breath) RF: 0 magnesium oxide 400 mg magnesium Tablet 400 mg PO HS RF: 0 doxepin 100 mg capsule 100 mg PO HS RF: 0 glipizide [Glucotrol XL] 2.5 mg tablet extended release 24hr 2.5 mg PO DAILY Qty: 30 RF: 3 Forteo 20 mcg/dose - 600 mcg/2.4 mL Pen Injector 20 mcg SUBCUT DAILY RF: 0 acetaminophen 650 mg Tablet 650 mg PO Q8H PRN (Reason: Pain) RF: 0 Cholestyramine Light 4 gram powder in packet 4 g PO BIDM RF: 0 metoprolol succinate 25 mg tablet extended release 24 hr 25 mg PO TID RF: 0 atorvastatin [Lipitor] 40 mg Tablet 40 mg PO QPM RF: 0 clopidogrel [Plavix] 75 mg Tablet 75 mg PO QPM RF: 0 pantoprazole [Protonix] 40 mg Tablet,Delayed Release (Dr/Ec) 40 mg PO BID RF: 0 riboflavin (vitamin B2) 400 mg Tablet 400 mg PO QPM RF: 0 duloxetine 60 mg Capsule,Delayed Release(Dr/Ec) 60 mg PO QAM RF: 0 oxcarbazepine [Trileptal] 300 mg tablet 300 mg PO BID RF: 0 cholecalciferol (vitamin D3) [Vitamin D3] 2,000 unit Capsule 2,000 unit PO QAM RF: 0 Saccharomyces boulardii [Florastor] 250 mg capsule 250 mg PO BID RF: 0 ondansetron 4 mg tablet,disintegrating 4 mg PO Q8H PRN (Reason: nausea and vomiting) RF: 0 Discontinued lisinopril 2.5 mg tablet 2.5 mg PO QPM RF: 0 potassium chloride 20 mEq tablet extended release 20 meq PO DAILY Qty: 30 RF: 0 Discharge Orders: Discharge Order (Routine); Ordered 10/09/20 Ordered By: Danny Turner Admission Data Admit Date/Time: 10/04/20 18:24 Attending Provider: Danny Turner Admit Provider: Annette Modi Primary Care Provider: Lo Chand Other Providers: Annette Modi ; Tiffanie Monteiro ; [place] Other Interventions: Discharge Summary Assessment (RN) Last Done: 10/09/20 14:34
== END 2020-10-09 15:00 | disposition home health service (06) | DRG 682 ==
LOC: ED 13:47 → SUATTDRO 18:24 → 2E 18:24

== ENCOUNTER 2021-05-05 14:42 | Inpatient (IN) ==
[2021-05-05] MEDS ORDERED: ONDANSETRON INJ 2 MG/ML 2 ML VIAL IV STA (14:52)
[2021-05-05] MEDS ORDERED: ACETAMINOPHEN 1000 MG/100 ML IV IV STA (14:52)
[2021-05-05] MEDS ORDERED: CEFEPIME 2,000 MG/20 ML VIAL IV STA (14:52)
[2021-05-05] MEDS ORDERED: SODIUM CHLORIDE 0.9% 1000ML 1,000 ML IV SCH (15:00)
--- NOTE | 2021-05-05 15:02 | Emergency Department Note ---
Impression & Plan Tachycardia, Leukocytosis, Fever, S/P ureteral stent placement ED Provider Note NAME: NAYELI GUERRERO AGE: 65 SEX: F : 1955 ARRIVES VIA: Ambulance INFORMANT: [Patient][ems] ED PROVIDER(S): [Caesar Murray MD] CHIEF COMPLAINT: Illness HISTORY OF PRESENT ILLNESS: The patient is a 65-year-old female who had left ureteral stone retrieval and stenting yesterday. She was discharged with Keflex. The patient states that since leaving yesterday, she has felt poorly. She had a lot of pain on the left side of her abdomen. Her Purvis catheter has been draining bloody urine. She began having chills and shakes and fever. She has vomited. The pain in the left lower abdomen is severe and constant. The patient was told to come today to the ER for presumed hospitalization. She spoke with her urologist prior to arrival. The patient denies any cough or congestion or shortness of breath. She states that she is anxious and shivering and just feels cold. She has a lot of pain in the left lower abdomen. She is asking if possibly, the Purvis catheter could be removed. The patient states that she did take her antibiotics as prescribed yesterday although, she did not take any of the antibiotic today. REVIEW OF SYSTEMS: See HPI for pertinent positives and negatives. A total of ten systems were reviewed and were otherwise negative. PMHx/PSHx: See Below SOCIAL HISTORY: See Below. PHYSICAL EXAM: GENERAL: Patient is in moderate distress, shivering. HEENT: No acute trauma, normocephalic atraumatic, mucous membranes moist, no nasal congestion, no scleral icterus. NECK: No stridor, no adenopathy, no meningismus, trachea is midline. LUNGS: Clear to auscultation bilaterally when listening anterior, no wheeze, no rhonchi, breath sounds equal. HEART: Tachycardic, subtle systolic murmur, regular rhythm. ABDOMEN: Soft, moderately tender in the left lower abdomen, bowel sounds positive, no hernias, no peritonitis. Purvis catheter in place draining bloody urine. EXTREMITIES: No cyanosis, moderate bilateral pedal edema, full range of motion of all the joints without pain or difficulty, no signs for acute trauma. NEUROLOGIC: Oriented x 3, no acute motor or sensory deficits, no focal weakness. SKIN: No rash, no jaundice, no diaphoresis. DIFFERENTIAL DIAGNOSIS: Sepsis, UTI, pneumonia, metabolic abnormality, electrolyte abnormalities, cardiac sources, cellulitis, UTI, bacteremia, intracerebral event, toxicologic etiology, neurologic event, as well as other pathologies. EMERGENCY DEPARTMENT COURSE/PROCEDURES: ECG: Indication was tachycardia. The ECG shows a sinus tachycardia with some baseline artifact. There is a PVC. There is some nonspecific ST change diffusely. There is a potential old inferior infarct. No ST elevation. The QTc is 398. Compared to an ECG from 04 May 2021, the rate has increased. Nonspecific ST change is now present. Continuous Cardiac Monitoring: An order was placed for continuous cardiac monitoring. The monitor shows a rate of 128 with sinus tachycardia. Critical Care Note: I have personally spent 61 minutes of critical care time in the direct management of this patient. This includes bedside care, interpretation of diagnostic studies, and testing, discussion with consultants, patient, and family members, and other required patient management activities. This 61 minutes is in excess of all separately billable procedures. MEDICAL DECISION MAKING: There is a mild leukocytosis which would be consistent with infection. No concerning anemia. There is a normal platelet count. No coagulopathy. There is some renal insufficiency although, the patient has had an elevated creatinine as of late. No significant electrolyte abnormality in need of emergent correction. No concerning liver enzyme elevation. Procalcitonin level was normal. Urinalysis shows red cells and white cells as well as bacteria, urine culture is pending. Covid testing is pending. Chest x-ray showed a potential left lower lung infiltrate versus some atelectasis. No CHF. Abdominal and pelvis CT showed inflammation along the left ureter consistent with her recent stent placement. There was some potential extravasation of urine noted. The stent was in proper position. An ileus was suspected. There was no abscess noted by CT imaging. Patient received IV saline, 2 L. She received IV cefepime as empiric antibiotic coverage. She received IV Zofran for nausea, she was given IV morphine for pain, she was given IV Tylenol for her fever. I did speak with urology about the patient's presentation. IV antibiotics, resuscitation was felt warranted. Hospitalization was felt warranted. No emergent urologic procedure was felt necessary. I spoke to the patient, I spoke with case management. The on-call hospitalist has been consulted. Of note, the patient does meet criteria for sepsis. She has been aggressively managed for this possibility. Past Med/Surg History Medical History Acute UTI (urinary tract infection) has presently per pt Anxiety Asthma well controlled per pt, rare inh use CHF (congestive heart failure) follows with Dr. Torres Chronic back pain Chronic headaches Chronic renal insufficiency stage 3, following with [facility] nephrology ([place]) Chronic respiratory failure with hypoxia Was on home oxygen in the past but no longer using at this time COPD (chronic obstructive pulmonary disease) Deep vein thrombosis LLE - COULD NOT RECALL DATE - REPORTS SHE WAS TREATED AT [facility] W/ BLOOD TH INNERS Depression Diabetes mellitus, type 2 GERD (gastroesophageal reflux disease) History of colon cancer 2012 S/P BOWEL RESECTION. History of COVID-27 Sep 2020 HTN (hypertension) Hyperlipidemia Morbid obesity with BMI of 40.0-44.9, adult Myocardial Infarction 06/2016--> [facility] -- CARDIAC CATH --> normal coronary anatomy without coronary obstruction but Plavix started per [facility] discharge summary On anticoagulant therapy plavix daily CALI (obstructive sleep apnea) Poor historian Seizure Pt states "i think i had them a long time ago". no other information. No hx of seizures noted in records Sinus tachycardia Follows with cardio Surgical History H/O hand surgery RIGHT History of appendectomy History of bilateral cataract extraction History of blepharoplasty History of cardiac cath 03/2018 - [place] - DENIES STENTS/ANGIOPLASTY - [facility] - FOLLOWS W/ DR. TORRES History of closure of ileostomy History of colectomy due to colon cancer History of colonoscopy History of cystoscopy History of esophageal dilatation History of esophagogastroduodenoscopy (EGD) History of hysterectomy History of kidney surgery at age 9 yrs "something was wrong and had to fix it" History of lithotripsy History of tooth extraction History of total abdominal hysterectomy and bilateral salpingo-oophorectomy Hx of cholecystectomy Family History Other Breast cancer Social History Smoking Status: Never smoker Second Hand Exposure: Yes (in past); Hx Alcohol Use: No Hx Substance Use: No Preferred Language: Czech Communication Ability: Effective 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 Required: No Beliefs That Will Affect Care: None marital status: Current Living Situation: Alone Current Living Situation Comment: [place] in [place] Feels Safe at Home: Yes Assistive Devices: Glasses Allergies Allergies Allergy/AdvReac Type Severity Reaction Status Date / Time salicylates Allergy Severe SHORTNESS Verified 05/05/21 16:10 OF BREATH Iodinated Contrast Media Allergy Intermediate EYES Verified 05/05/21 16:10 SWELLING/Hives amoxicillin [From Augmentin] Allergy Mild Rash Verified 05/05/21 16:10 aspirin Allergy Mild FACIAL Verified 05/05/21 16:10 SWELLING clavulanic acid Allergy Mild Rash Verified 05/05/21 16:10 [From Augmentin] hydromorphone Allergy Mild RASH/ITCHIN Verified 05/05/21 16:10 G fentanyl Allergy itching/felt Verified 05/05/21 16:10 like throat closing meperidine AdvReac Intermediate ITCH Verified 05/05/21 16:10 morphine AdvReac Intermediate ITCH Verified 05/05/21 16:10 tramadol AdvReac Mild itch Verified 05/05/21 16:10 Home Meds Home Medications Medication Instructions Recorded Confirmed atorvastatin 40 mg tablet (Lipitor) 40 mg PO QPM 07/12/18 05/05/21 clopidogrel 75 mg tablet (Plavix) 75 mg PO QPM 07/12/18 05/05/21 pantoprazole 40 mg tablet,delayed 40 mg PO BID 07/12/18 05/05/21 release (Protonix) riboflavin (vitamin B2) 400 mg 400 mg PO QPM 07/12/18 05/05/21 tablet duloxetine 60 mg capsule,delayed 60 mg PO QAM 10/16/18 05/05/21 release cholecalciferol (vitamin D3) 50 2,000 unit PO QAM 05/16/19 05/05/21 mcg (2,000 unit) capsule (Vitamin D3) oxcarbazepine 300 mg tablet 300 mg PO BID 05/16/19 05/05/21 (Trileptal) albuterol sulfate 90 mcg/actuation 2 puff INHALATION Q4H PRN 07/21/19 05/05/21 aerosol inhaler magnesium oxide 400 mg PO HS 10/05/19 05/05/21 Saccharomyces boulardii 250 mg 250 mg PO BID 08/17/20 05/05/21 capsule (Florastor) ondansetron 4 mg disintegrating 4 mg PO Q8H PRN 08/17/20 05/05/21 tablet doxepin 100 mg capsule 100 mg PO HS cap 12/11/20 05/05/21 fluticasone fur. 100 mcg-umeclid 1 inh INHALATION DAILY PRN 12/11/20 05/05/21 62.5 mcg-vilant 25 mcg inhalat.powder (Trelegy Ellipta) hydroxyzine pamoate 25 mg capsule 25 mg PO BID PRN 12/11/20 05/05/21 lidocaine 5 % topical patch 1 patch TOPICAL DAILY PRN 12/11/20 05/05/21 metoprolol succinate 25 mg 25 mg PO PM tab 12/11/20 05/05/21 tablet,extended release 24 hr metoprolol succinate 50 mg 50 mg PO QAM 12/11/20 05/05/21 tablet,extended release 24 hr glipizide 2.5 mg tablet, extended 2.5 mg PO PM 04/29/21 05/05/21 release 24 hr (Glucotrol XL) acetaminophen 325 mg tablet 650 mg PO Q8H PRN 05/05/21 05/05/21 (Tylenol) teriparatide 20 mcg/dose (620 20 mcg SUBCUT PM 05/05/21 05/05/21 mcg/2.48 mL) subcutaneous pen injector (Forteo) Previous Rx's Medication Instructions Recorded sulfamethoxazole 400 1 tab PO BID 7 Days #14 tab 04/28/21 mg-trimethoprim 80 mg tablet (Bactrim) acetaminophen 300 mg-codeine 15 mg 1 tab PO Q8H PRN #10 tab 05/04/21 tablet cephalexin 500 mg capsule 500 mg PO BID 7 Days #14 cap 05/04/21 phenazopyridine 200 mg tablet 200 mg PO Q8H PRN #10 tab 05/04/21 (Pyridium) tamsulosin 0.4 mg capsule 0.4 mg PO HS #30 cap 05/04/21 Results & Data (ED) Vital Signs Vital Signs - 24 hr 05/05/21 14:46 05/05/21 14:52 05/05/21 14:55 Temperature 38.5 C H Temperature Source Temporal Artery Scan Pulse Rate 130 H 138 H Pulse Rate from SpO2 Sensor 136 H Pulse Rhythm Regular Regular Pulse Strength Normal Respiratory Rate 18 24 Blood Pressure 123/87 123/87 Blood Pressure Mean 99 99 Blood Pressure Position Sitting Pulse Oximetry 97 94 97 Oxygen Delivery Method Room Air Room Air Oxygen Flow Rate 2 Sepsis Recent Fever Within 48 Hours Yes Sepsis New/Unexplained Change in Mental Status N/A Sepsis Action Taken by Nursing Physician Notified Home Medications Current Medication List: was personally reviewed by me Laboratory Data Attestation: I reviewed the patient's lab results. Result diagrams: 05/05/21 15:14 05/05/21 15:14 Lab Results 05/05/21 05/05/21 05/05/21 Range/Units 15:14 15:14 15:14 WBC 11.80 H (4.8-10.8) K/uL RBC 3.81 L (4.2-5.4) M/uL Hgb 11.6 L (12.0-16.0) g/dL Hct 37.8 (37-47) % MCV 99.2 (80-100) fL MCH 30.4 (25-34) pg MCHC 30.7 L (32-36) g/dL RDW Std Deviation 50.4 H (36.4-46.3) fL RDW Coeff of Teresa 14.0 (11.5-14.5) % Plt Count 208 (130-400) K/uL MPV 10.1 (7.4-10.4) fL Immature Gran % (Auto) 0.3 % Neut % (Auto) 84.6 % Lymph % (Auto) 5.2 % [place] % (Auto) 9.7 % Eos % (Auto) 0.1 % Baso % (Auto) 0.1 % Neut # (Auto) 10.00 H (1.4-6.5) K/uL Lymph # (Auto) 0.61 L (1.2-3.4) K/uL [place] # (Auto) 1.14 H (0.11-0.59) K/uL Eos # (Auto) 0.01 (0-0.5) K/uL Baso # (Auto) 0.01 (0-0.2) K/uL Immature Gran # (Auto) 0.03 H (0.00-0.02) K/uL PT 9.8 (9.0-12.0) Seconds INR 1.0 (0.9-1.1) APTT 24.0 (21.0-31.0) Seconds PTT Ratio 0.9 Sodium 142 (136-145) mmol/L Potassium 3.9 (3.5-5.1) mmol/L Chloride 115 H (98-107) mmol/L Carbon Dioxide 21 (21-32) mmol/L Anion Gap 6.0 (3-11) BUN 24 H (7-18) mg/dl Creatinine 1.95 H (0.6-1.2) mg/dl Est Cr Clr Drug Dosing 28.8 ml/min Est GFR ( Amer) 30.1 ml/min Est GFR (Non-Af Amer) 26.0 ml/min BUN/Creatinine Ratio 12.2 (10-20) Glucose 148 H (70-99) mg/dl Calcium 9.2 (8.5-10.1) mg/dl Magnesium 1.9 (1.8-2.4) mg/dl Total Bilirubin 0.6 (0.2-1) mg/dl AST 18 (15-37) U/L ALT 33 (12-78) U/L Alkaline Phosphatase 154 H (45-117) U/L Troponin I < 0.015 (0-0.045) ng/ml Total Protein 7.9 (6.4-8.2) gm/dl Albumin 3.2 L (3.4-5.0) gm/dl Globulin 4.7 H (2.5-4.0) gm/dl Albumin/Globulin Ratio 0.7 L (0.9-2) Procalcitonin (0-0.5) ng/ml Urine Color Urine Appearance (Clear) Urine pH (4.5-7.5) Ur Specific [place] (1.000-1.030) Urine Protein (Negative) Urine Glucose (UA) (Negative) Urine Ketones (Negative) Urine Blood (Negative) Urine Nitrite (Negative) Urine Bilirubin (Negative) Urine Urobilinogen (Negative) Ur Leukocyte Esterase (Negative) Urine RBC (0-4) /hpf Urine WBC (0-5) /hpf Ur Epithelial Cells (0-5) /lpf Urine Bacteria (Negative) COVID-19 Eval Order 05/05/21 05/05/21 05/05/21 Range/Units 15:14 16:30 16:43 WBC (4.8-10.8) K/uL RBC (4.2-5.4) M/uL Hgb (12.0-16.0) g/dL Hct (37-47) % MCV (80-100) fL MCH (25-34) pg MCHC (32-36) g/dL RDW Std Deviation (36.4-46.3) fL RDW Coeff of Teresa (11.5-14.5) % Plt Count (130-400) K/uL MPV (7.4-10.4) fL Immature Gran % (Auto) % Neut % (Auto) % Lymph % (Auto) % [place] % (Auto) % Eos % (Auto) % Baso % (Auto) % Neut # (Auto) (1.4-6.5) K/uL Lymph # (Auto) (1.2-3.4) K/uL [place] # (Auto) (0.11-0.59) K/uL Eos # (Auto) (0-0.5) K/uL Baso # (Auto) (0-0.2) K/uL Immature Gran # (Auto) (0.00-0.02) K/uL PT (9.0-12.0) Seconds INR (0.9-1.1) APTT (21.0-31.0) Seconds PTT Ratio Sodium (136-145) mmol/L Potassium (3.5-5.1) mmol/L Chloride (98-107) mmol/L Carbon Dioxide (21-32) mmol/L Anion Gap (3-11) BUN (7-18) mg/dl Creatinine (0.6-1.2) mg/dl Est Cr Clr Drug Dosing ml/min Est GFR ( Amer) ml/min Est GFR (Non-Af Amer) ml/min BUN/Creatinine Ratio (10-20) Glucose (70-99) mg/dl Calcium (8.5-10.1) mg/dl Magnesium (1.8-2.4) mg/dl Total Bilirubin (0.2-1) mg/dl AST (15-37) U/L ALT (12-78) U/L Alkaline Phosphatase (45-117) U/L Troponin I (0-0.045) ng/ml Total Protein (6.4-8.2) gm/dl Albumin (3.4-5.0) gm/dl Globulin (2.5-4.0) gm/dl Albumin/Globulin Ratio (0.9-2) Procalcitonin 0.43 (0-0.5) ng/ml Urine Color Vance Urine Appearance Clear (Clear) Urine pH (4.5-7.5) Ur Specific [place] 1.024 (1.000-1.030) Urine Protein (Negative) Urine Glucose (UA) (Negative) Urine Ketones (Negative) Urine Blood (Negative) Urine Nitrite (Negative) Urine Bilirubin (Negative) Urine Urobilinogen (Negative) Ur Leukocyte Esterase (Negative) Urine RBC >30 H (0-4) /hpf Urine WBC >30 H (0-5) /hpf Ur Epithelial Cells 0-5 (0-5) /lpf Urine Bacteria 2+ H (Negative) COVID-19 Eval Order Covid19 at [facility] Administered Medications Sodium Chloride (Nss 1000ml) 1,000 mls @ 999 mls/hr IV .Q1H1M ONE Stop: 05/05/21 17:46 Last Admin: 05/05/21 17:12 Dose: 999 mls/hr Documented by: [id number] Morphine Sulfate (Morphine Sulfate 2 Mg/Ml Carp) 2 mg IV Q30M PRN PRN Reason: Pain Stop: 05/19/21 14:51 Last Admin: 05/05/21 17:14 Dose: 2 mg Documented by: [id number] Admin: 05/05/21 15:09 Dose: 2 mg Documented by: [id number] Discontinued Medications Acetaminophen (Acetaminophen 1000 Mg/100 Ml Iv) 1,000 mg IV NOW STA Stop: 05/05/21 14:53 Last Admin: 05/05/21 15:24 Dose: 1,000 mg Documented by: [id number] Sodium Chloride (Nss 1000ml) 1,000 mls @ 999 mls/hr IV .Q1H1M MARLA Stop: 05/05/21 16:00 Last Infusion: 05/05/21 17:12 Dose: 0 mls/hr Documented by: [id number] Admin: 05/05/21 15:24 Dose: 999 mls/hr Documented by: [id number] Cefepime HCl (Maxipime) 2,000 mg in 20 mls @ 5 mls/min IV NOW STA; Protocol Stop: 05/05/21 14:55 Last Admin: 05/05/21 15:24 Dose: 5 mls/min Documented by: [id number] Ondansetron HCl (Ondansetron Inj 2 Mg/Ml 2 Ml Vial) 4 mg IV NOW STA Stop: 05/05/21 14:53 Last Admin: 05/05/21 15:09 Dose: 4 mg Documented by: [id number] Imaging Data Radiologist's Impression: Chest X-Ray 05/05/21 14:52 XR chest 1V portable HISTORY: SEPSIS COMPARISON: Chest 10/06/2020. FINDINGS: Small patchy airspace opacities within the left lower lobe. Right lung is clear. The heart is normal in size. No pleural effusions. No pneumothorax. No evidence for pulmonary edema. IMPRESSION: Small patchy airspace opacities within the left lower lobe. This likely represents a pneumonia. This will be reassessed on the same day abdomen and pelvis CT. ACT 112: Negative or not required by law. Electronically signed by: Marcell Marquez M.D. 05/05/2021 4:05 PM Abdomen/Pelvis CT 05/05/21 14:[address] WITHOUT CONTRAST CT DOSE: 869.81 mGy.cm HISTORY: s/p ureteral stenting, left flank pain. Left lower quadrant pain TECHNIQUE: Multiaxial CT images of the abdomen and pelvis were performed without contrast. A dose lowering technique was utilized adhering to the principles of ALARA. COMPARISON STUDY: Abdomen and pelvis CT 10/04/2020. FINDINGS: The left basilar densities described on the same day chest x-ray or demonstrated to be subsegmental atelectasis. Calcified granuloma within the left lower lobe. The right lung base is clear. No suspicious lytic or blastic osseous lesions. There are old, healed left-sided rib fractures. Moderate hiatus hernia. Small fat-containing lower midline abdominal wall hernia. Mild hepatic s teatosis. Cholecystectomy. The unenhanced spleen, adrenal glands, and pancreas are unremarkable. Normal caliber abdominal aorta. No retroperitoneal lymphadenopathy. The bladder is decompressed by Purvis catheter. Gas within the bladder lumen is likely due to the recent instrumentation. The uterus is surgically absent. Postoperative changes consistent with a prior subtotal colectomy. Fluid-filled distal sigmoid colon and rectum. This remains unchanged. No definite bowel wall thickening on this noncontrast study. There are few mildly dilated fluid-filled loops of small bowel within the left lower quadrant. These measure up to 2.9 cm in diameter. This could represent a mild focal ileus versus less likely partial small bowel obstruction. There are few punctate right renal calculi. No right ureteral stones are right-sided hydronephrosis. There is a 6.3 cm hypodense exophytic lesion within the upper pole the left kidney. This is similar to the outside hospital renal ultrasound on 04/24/2021. There is gas within the upper pole collecting system of the left kidney. There are multiple left renal calculi, which demonstrate a partial staghorn configuration. These have increased in number compared to the prior study. There is persistent dilatation of the left renal pelvis. There is urothelial thickening within the left renal pelvis and left ureter. A left ureteral stent appears in good posit ion. Small to moderate amount of left retroperitoneal fluid which partially surrounds the mid to distal left ureter. This is concerning for extravasation of urine in the setting of a mid left ureteral injury. IMPRESSION: 1. A left ureteral stent appears in good position. Small to moderate amount of left retroperitoneal fluid which partially surrounds the mid to distal left ureter. This is concerning for extravasation of urine in the setting of a mid left ureteral injury. 2. Left-sided nephrolithiasis which has progressed in the interval. No ureteral calculi. 3. Right-sided nephrolithiasis. No right-sided hydronephrosis. 4. Persistent dilatation of the left renal pelvis/collecting system. There is urothelial thickening within the left renal pelvis. This could be reactive to the stent or represent an infectious process. Recommend correlation with urinalysis. 5. A few mildly dilated fluid-filled loops of small bowel within the left side of the abdomen. This favors an ileus. A partial small bowel obstruction is considered less likely but not entirely excluded. 6. Gas within the left renal collecting system is likely due to the recent instrumentation. 7. Redemonstration of 6.3 cm hypodense exophytic lesion within the upper pole of the left kidney. 8. Additional findings as described above. ACT 112: Negative or not required by law. Electronically signed by: Marcell Marquez M.D. 05/05/2021 4:31 PM Discharge Plan Visit Data Chief Complaint: Abdominal Pain Stated Complaint: AB PAIN ED Provider: Caesar Murray Discharge Problem: Tachycardia, Leukocytosis, Fever, S/P ureteral stent placement Patient Disposition: Admitted As Inpatient Condition: Fair Forms Stand Alone Forms: [facility] Prescriptions Prescriptions: No Action sulfamethoxazole-trimethoprim [Bactrim] 400-80 mg tablet 1 tab PO BID 7 Days Qty: 14 RF: 0 hydroxyzine pamoate 25 mg capsule 25 mg PO BID PRN (Reason: Itching) RF: 0 lidocaine 5 % adhesive patch,medicated 1 patch topical DAILY PRN (Reason: Pain) RF: 0 metoprolol succinate 50 mg tablet extended release 24 hr 50 mg PO QAM RF: 0 Trelegy Ellipta 100-62.5-25 mcg blister with device 1 inh inhalation DAILY PRN (Reason: Shortness Of Breath) RF: 0 doxepin 100 mg capsule 100 mg PO HS RF: 0 metoprolol succinate 25 mg tablet extended release 24 hr 25 mg PO PM RF: 0 albuterol sulfate 90 mcg/actuation Hfa Aerosol Inhaler 2 puff INHALATION Q4H PRN (Reason: Shortness Of Breath) RF: 0 magnesium oxide 400 mg magnesium Tablet 400 mg PO HS RF: 0 atorvastatin [Lipitor] 40 mg Tablet 40 mg PO QPM RF: 0 clopidogrel [Plavix] 75 mg Tablet 75 mg PO QPM RF: 0 pantoprazole [Protonix] 40 mg Tablet,Delayed Release (Dr/Ec) 40 mg PO BID RF: 0 riboflavin (vitamin B2) 400 mg Tablet 400 mg PO QPM RF: 0 duloxetine 60 mg Capsule,Delayed Release(Dr/Ec) 60 mg PO QAM RF: 0 oxcarbazepine [Trileptal] 300 mg tablet 300 mg PO BID RF: 0 cholecalciferol (vitamin D3) [Vitamin D3] 2,000 unit Capsule 2,000 unit PO QAM RF: 0 Saccharomyces boulardii [Florastor] 250 mg capsule 250 mg PO BID RF: 0 ondansetron 4 mg tablet,disintegrating 4 mg PO Q8H PRN (Reason: nausea and vomiting) RF: 0 acetaminophen [Tylenol] 325 mg Tablet 650 mg PO Q8H PRN (Reason: Pain) RF: 0 teriparatide [Forteo] 20 mcg/dose (620mcg/2.48mL) pen injector 20 mcg SUBCUT PM RF: 0 glipizide [Glucotrol XL] 2.5 mg tablet extended release 24hr 2.5 mg PO PM RF: 0 phenazopyridine [Pyridium] 200 mg tablet 200 mg PO Q8H PRN (Reason: pain) Qty: 10 RF: 0 cephalexin 500 mg capsule 500 mg PO BID 7 Days Qty: 14 RF: 0 tamsulosin 0.4 mg capsule 0.4 mg PO HS Qty: 30 RF: 0 acetaminophen-codeine 300-15 mg tablet 1 tab PO Q8H PRN (Reason: pain) Qty: 10 RF: 0 Referrals Referrals: Lo Chand DO [Primary Care Provider] - Discharge Problem: Leukocytosis Qualifiers: Leukocytosis type: unspecified Qualified Code(s): D72.829 - Elevated white blood cell count, unspecified Fever Qualifiers: Fever type: unspecified Qualified Code(s): R50.9 - Fever, unspecified
[2021-05-05] MEDS: MoRPHine SULFATE 2 MG/ML CARP IV PRN ×3 (15:09→21:58)
[2021-05-05 15:30] LABS: Basophils # (auto) 0.01 K/uL (0-0.2); Basophils % (auto) 0.1 %; Eosinophils # (auto) 0.01 K/uL (0-0.5); Eosinophils % (auto) 0.1 %; Hematocrit (blood only) 37.8 % (37-47); Hemoglobin 11.6 g/dL (12.0-16.0); Immature Granulocytes # (auto) 0.03 K/uL (0.00-0.02); Immature Granulocytes % (auto) 0.3 %; Lymphocytes # (auto) 0.61 K/uL (1.2-3.4); Lymphocytes % (auto) 5.2 %; Mean Corpuscular Hemoglobin 30.4 pg (25-34); Mean Corpuscular Hgb Conc 30.7 g/dL (32-36); Mean Corpuscular Volume 99.2 fL (80-100); Mean Platelet Volume 10.1 fL (7.4-10.4); Monocytes # (auto) 1.14 K/uL (0.11-0.59); Monocytes % (auto) 9.7 %; Neutrophils % (auto) 84.6 %; Platelet Count 208 K/uL (130-400); RDW Standard Deviation 50.4 fL (36.4-46.3); Red Blood Count 3.81 M/uL (4.2-5.4)
[2021-05-05 15:40] LABS: Partial Thromboplastin Ratio 0.9; Prothrombin Time 9.8 Seconds (9.0-12.0)
[2021-05-05 15:48] LABS: Alanine Aminotransferase 33 U/L (12-78); Albumin Level 3.2 gm/dl (3.4-5.0); Aspartate Aminotransferase 18 U/L (15-37); BUN Creatinine Ratio 12.2 (10-20); Blood Urea Nitrogen 24 mg/dl (7-18); Calcium 9.2 mg/dl (8.5-10.1); Carbon Dioxide 21 mmol/L (21-32); Chloride 115 mmol/L (98-107); Creatinine Clr Calc Pharmacy 28.8 ml/min; Est GFR (African American) 30.1 ml/min; Glucose 148 mg/dl (70-99); Magnesium 1.9 mg/dl (1.8-2.4); Potassium 3.9 mmol/L (3.5-5.1); Sodium 142 mmol/L (136-145)
[2021-05-05 15:53] LABS: Albumin Globulin Ratio 0.7 (0.9-2); Alkaline Phosphatase 154 U/L (45-117); Bilirubin,Total 0.6 mg/dl (0.2-1); Globulin 4.7 gm/dl (2.5-4.0); Total Protein 7.9 gm/dl (6.4-8.2); Troponin I < 0.015 ng/ml (0-0.045)
--- NOTE | 2021-05-05 16:07 | XRay Report ---
XR chest 1V portable HISTORY: SEPSIS COMPARISON: Chest 10/06/2020. FINDINGS: Small patchy airspace opacities within the left lower lobe. Right lung is clear. The heart is normal in size. No pleural effusions. No pneumothorax. No evidence for pulmonary edema. IMPRESSION: Small patchy airspace opacities within the left lower lobe. This likely represents a pneumonia. This will be reassessed on the same day abdomen and pelvis CT. ACT 112: Negative or not required by law. Electronically signed by: Marcell Marquez M.D. 05/05/2021 4:05 PM
--- NOTE | 2021-05-05 16:32 | CT Scan Report ---
ABDOMEN AND PELVIS CT WITHOUT CONTRAST CT DOSE: 869.81 mGy.cm HISTORY: s/p ureteral stenting, left flank pain. Left lower quadrant pain TECHNIQUE: Multiaxial CT images of the abdomen and pelvis were performed without contrast. A dose lo wering technique was utilized adhering to the principles of ALARA. COMPARISON STUDY: Abdomen and pelvis CT 10/04/2020. FINDINGS: The left basilar densities described on the same day chest x-ray or demonstrated to be subs egmental atelectasis. Calcified granuloma within the left lower lobe. The right lung base is clear. N o suspicious lytic or blastic osseous lesions. There are old, healed left-sided rib fractures. Modera te hiatus hernia. Small fat-containing lower midline abdominal wall hernia. Mild hepatic steatosis. C holecystectomy. The unenhanced spleen, adrenal glands, and pancreas are unremarkable. Normal caliber abdominal aorta. No retroperitoneal lymphadenopathy. The bladder is decompressed by Purvis catheter. G as within the bladder lumen is likely due to the recent instrumentation. The uterus is surgically abs ent. Postoperative changes consistent with a prior subtotal colectomy. Fluid-filled distal sigmoid co natalia and rectum. This remains unchanged. No definite bowel wall thickening on this noncontrast study. There are few mildly dilated fluid-filled loops of small bowel within the left lower quadrant. These measure up to 2.9 cm in diameter. This could represent a mild focal ileus versus less likely partial small bowel obstruction. There are few punctate right renal calculi. No right ureteral stones are rig ht-sided hydronephrosis. There is a 6.3 cm hypodense exophytic lesion within the upper pole the left kidney. This is similar to the outside hospital renal ultrasound on 04/24/2021. There is gas within th e upper pole collecting system of the left kidney. There are multiple left renal calculi, which demon strate a partial staghorn configuration. These have increased in number compared to the prior study. There is persistent dilatation of the left renal pelvis. There is urothelial thickening within the le ft renal pelvis and left ureter. A left ureteral stent appears in good position. Small to moderate am ount of left retroperitoneal fluid which partially surrounds the mid to distal left ureter. This is c oncerning for extravasation of urine in the setting of a mid left ureteral injury. IMPRESSION: 1. A left ureteral stent appears in good position. Small to moderate amount of left retroperitoneal f luid which partially surrounds the mid to distal left ureter. This is concerning for extravasation of urine in the setting of a mid left ureteral injury. 2. Left-sided nephrolithiasis which has progressed in the interval. No ureteral calculi. 3. Right-sided nephrolithiasis. No right-sided hydronephrosis. 4. Persistent dilatation of the left renal pelvis/collecting system. There is urothelial thickening w ithin the left renal pelvis. This could be reactive to the stent or represent an infectious process. Recommend correlation with urinalysis. 5. A few mildly dilated fluid-filled loops of small bowel within the left side of the abdomen. This f avors an ileus. A partial small bowel obstruction is considered less likely but not entirely excluded . 6. Gas within the left renal collecting system is likely due to the recent instrumentation. 7. Redemonstration of 6.3 cm hypodense exophytic lesion within the upper pole of the left kidney. 8. Additional findings as described above. ACT 112: Negative or not required by law. Electronically signed by: Marcell Marquez M.D. 05/05/2021 4:31 PM
--- NOTE | 2021-05-05 16:32 | History & Physical Report ---
Date of Service May 05, 2021 Assessment & Plan (1) Sepsis: (2) Complicated UTI (urinary tract infection): (3) S/P ureteral stent placement: Plan: This is a 65yo F with a PMH of DM II, COPD, CKD III, HTN, bipolar disorder, chronic respiratory failure on home O2, history of sinus tachycardia and other medical problems listed below who presents with fever, chills and abdominal pain following urologic procedure yesterday. S/p cystoscopy with left ureteronephroscopy, laser destruction of stone and basket of renal stones, insertion of L stent, with biopsy of ureter and brushing of ureter yesterday as outpatient procedure with Dr. Adam Discharged home on Keflex Developed chills, low grade fever, N/V and abd pain overnight In ER, patient febrile at 38.5, tachycardic at 138, mild leukocytosis of 11.8, procal and lactate wnl UA with 2+ bacteria Presentation consistent with pyelonephritis / complicated UTI meeting sepsis criteria CT abd/ pelvis shows * left ureteral stent appears in good position. Small to moderate amount of left retroperitoneal fluid which partially surrounds the mid to distal left ureter. This is concerning for extravasation of urine in the setting of a mid left ureteral injury. * Persistent dilatation of the left renal pelvis/collecting system. There is urothelial thickening within the left renal pelvis. This could be reactive to the stent or represent an infectious process * A few mildly dilated fluid-filled loops of small bowel within the left side of the abdomen. This favors an ileus. A partial small bowel obstruction is considered less likely but not entirely excluded Continue empiric Cefepime Follow blood/urine cultures Purvis catheter in place Clear liquids for now Pain control Urology consulted (4) Ileus, postoperative: Plan: Possible post operative ileus on CT abd/pelvis - A partial small bowel obstruction is considered less likely but not entirely excluded Clear liquids for now, antiemetics Repeat KUB in AM (5) Chronic respiratory failure with hypoxia: Plan: At baseline. Continue 2L continuously and at night (6) Diabetes mellitus, type 2: Plan: A1c 5.8 in December 2020 Hold home agents SSI while in-patient BSG AC HS (7) COPD (chronic obstructive pulmonary disease): Plan: At baseline. Continue Trelegy inhlaer, 2L NC O2 continuously (8) Mood disorder: Plan: Continue Doxepin, duloxetine, oxcarbazepine (9) CKD (chronic kidney disease): Plan: Cr 1.7-2 over past month, former baseline ~mid 1s Following with nephrology, also with recent urological procedures Avoid nephrotoxic agents when able, BMP daily (10) CALI (obstructive sleep apnea): Plan: Intolerant to bipap. Continue 2L O2 HS DVT Ppx: SCDs Code status: FULL PCP: Mannie Dispo: Admitted to PCU Patient seen in collaboration with Dr. Garrett. Please see addendum. History of Present Illness Chief Complaint: abd pain, fever, chills Primary Care Provider: Lo Chand, This is a 65yo F with a PMH of DM II, COPD, CKD III, HTN, bipolar disorder, chronic respiratory failure on home O2, history of sinus tachycardia and other medical problems listed below who presents with fever, chills and abdominal pain following urologic procedure yesterday. Has history of bilateral nephrolithiasis following with urology who underwent cystoscopy with left ureteronephroscopy, laser destruction of dtone and basket of renal stones, insertion of L stent, with biopsy of ureter and brushing of ureter yesterday as outpatient procedure with Dr. Adam. [place] unwell last evening following procedure with nausea,dry heaves and tenderness in left lower abdomen. Woke up this morning with chills an d low-grade fever. Nausea and vomiting continued and as well as left abdominal pain described as constant sharp pain. Called urology this morning with instruction to come to ED for further evaluation. Continues to have 7/10 sharp lower L abdominal pain, nausea, poor appetite, fever and chills. Denies chest pain, SOB or palpitations. Purvis catheter in place. Allergies Allergy/AdvReac Type Severity Reaction Status Date / Time salicylates Allergy Severe SHORTNESS Verified 05/05/21 16:10 OF BREATH Iodinated Contrast Media Allergy Intermediate EYES Verified 05/05/21 16:10 SWELLING/Hives amoxicillin [From Augmentin] Allergy Mild Rash Verified 05/05/21 16:10 aspirin Allergy Mild FACIAL Verified 05/05/21 16:10 SWELLING clavulanic acid Allergy Mild Rash Verified 05/05/21 16:10 [From Augmentin] hydromorphone Allergy Mild RASH/ITCHIN Verified 05/05/21 16:10 G fentanyl Allergy itching/felt Verified 05/05/21 16:10 like throat closing meperidine AdvReac Intermediate ITCH Verified 05/05/21 16:10 morphine AdvReac Intermediate ITCH Verified 05/05/21 16:10 tramadol AdvReac Mild itch Verified 05/05/21 16:10 Home Medications Medication Instructions Recorded Confirmed Type atorvastatin 40 mg tablet (Lipitor) 40 mg PO QPM 07/12/18 05/05/21 History clopidogrel 75 mg tablet (Plavix) 75 mg PO QPM 07/12/18 05/05/21 History pantoprazole 40 mg tablet,delayed 40 mg PO BID 07/12/18 05/05/21 History release (Protonix) riboflavin (vitamin B2) 400 mg 400 mg PO QPM 07/12/18 05/05/21 History tablet duloxetine 60 mg capsule,delayed 60 mg PO QAM 10/16/18 05/05/21 History release cholecalciferol (vitamin D3) 50 2,000 unit PO QAM 05/16/19 05/05/21 History mcg (2,000 unit) capsule (Vitamin D3) oxcarbazepine 300 mg tablet 300 mg PO BID 05/16/19 05/05/21 History (Trileptal) albuterol sulfate 90 mcg/actuation 2 puff INHALATION Q4H PRN 07/21/19 05/05/21 History aerosol inhaler magnesium oxide 400 mg PO HS 10/05/19 05/05/21 History Saccharomyces boulardii 250 mg 250 mg PO BID 08/17/20 05/05/21 History capsule (Florastor) ondansetron 4 mg disintegrating 4 mg PO Q8H PRN 08/17/20 05/05/21 History tablet doxepin 100 mg capsule 50 mg PO HS cap 12/11/20 05/05/21 History fluticasone fur. 100 mcg-umeclid 1 inh INHALATION DAILY PRN 12/11/20 05/05/21 History 62.5 mcg-vilant 25 mcg inhalat.powder (Trelegy Ellipta) metoprolol succinate 25 mg 25 mg PO PM tab 12/11/20 05/05/21 History tablet,extended release 24 hr metoprolol succinate 50 mg 50 mg PO QAM 12/11/20 05/05/21 History tablet,extended release 24 hr glipizide 2.5 mg tablet, extended 2.5 mg PO PM 04/29/21 05/05/21 History release 24 hr (Glucotrol XL) acetaminophen 300 mg-codeine 15 mg 1 tab PO Q8H PRN #10 tab 05/04/21 05/05/21 Rx tablet cephalexin 500 mg capsule 500 mg PO BID 7 Days #14 cap 05/04/21 05/05/21 Rx phenazopyridine 200 mg tablet 200 mg PO Q8H PRN #10 tab 05/04/21 05/05/21 Rx (Pyridium) tamsulosin 0.4 mg capsule 0.4 mg PO HS #30 cap 05/04/21 05/05/21 Rx acetaminophen 325 mg tablet 650 mg PO Q8H PRN 05/05/21 05/05/21 History (Tylenol) teriparatide 20 mcg/dose (620 20 mcg SUBCUT PM 05/05/21 05/05/21 History mcg/2.48 mL) subcutaneous pen injector (Forteo) Past Med/Surg History Medical History Acute UTI (urinary tract infection) has presently per pt Anxiety Asthma well controlled per pt, rare inh use CHF (congestive heart failure) follows with Dr. Singh Chronic back pain Chronic headaches Chronic renal insufficiency stage 3, following with [facility] nephrology ([place]) Chronic respiratory failure with hypoxia Was on home oxygen in the past but no longer using at this time CKD (chronic kidney disease) COPD (chronic obstructive pulmonary disease) Deep vein thrombosis LLE - COULD NOT RECALL DATE - REPORTS SHE WAS TREATED AT [facility] W/ BLOOD THINNERS Depression Diabetes mellitus, type 2 GERD (gastroesophageal reflux disease) History of colon cancer 2012 S/P BOWEL RESECTION. History of COVID-27 Sep 2020 HTN (hypertension) Hyperlipidemia Mood disorder Morbid obesity with BMI of 40.0-44.9, adult Myocardial Infarction 06/2016--> [facility] -- CARDIAC CATH --> normal coronary anatomy without coronary obstruction but Plavix started per [facility] discharge summary On anticoagulant therapy plavix daily CALI (obstructive sleep apnea) Poor historian Seizure Pt states "i think i had them a long time ago". no other information. No hx of seizures noted in records Sinus tachycardia Follows with cardio Surgical History H/O hand surgery RIGHT History of appendectomy History of bilateral cataract extraction History of blepharoplasty History of cardiac cath 03/2018 - [place] - DENIES STENTS/ANGIOPLASTY - [facility] - FOLLOWS W/ DR. SINGH History of closure of ileostomy History of colectomy due to colon cancer History of colonoscopy History of cystoscopy History of esophageal dilatation History of esophagogastroduodenoscopy (EGD) History of hysterectomy History of kidney surgery at age 9 yrs "something was wrong and had to fix it" History of lithotripsy History of tooth extraction History of total abdominal hysterectomy and bilateral salpingo-oophorectomy Hx of cholecystectomy Family History Other Breast cancer Social History Smoking Status: Never smoker Second Hand Exposure: Yes (in past); Hx Alcohol Use: No Hx Substance Use: No Preferred Language: Albanian Communication Ability: Effective Warp Dyeing Vat Tender Required: No Beliefs That Will Affect Care: Bahai marital status: Current Living Situation: Spouse Current Living Situation Comment: Lives with ; home health aide Feels Safe at Home: Yes Safety Concerns: Feels Safe At This Time Assistive Devices: None Review of Systems Review of Systems: At least ten systems reviewed and negative except as noted in the HPI. Physical Exam Physical Exam: General Appearance: WD/WN, vitals as above, NAD, sitting up in bed, obese, conversing easily Head: normocephalic, atraumatic Eyes: normal inspection, PERRL, conjunctivae normal, anicteric sclerae ENT: external ear and nose normal, oropharynx normal Neck: normal visual inspection, trachea midline, no thyromegaly Respiratory: normal respiratory effort, lungs clear to auscultation, no wheeze, rales, rhonchi. No accessory muscle use Cardiovascular: tachycardic rate, rhythm, no murmur appreciated, normal peripheral pulses, no BLE edema. Vessels: no JVD Chest: normal inspection of chest Abdomen/GI: normal bowel sounds, soft, TTP in left lower quadrant, no hepatosplenomegaly : Purvis catheter in place, collection bag with mclean red colored urine Extremities/Musculoskeletal: no cyanosis or clubbing, extremities motor strength 5/5 Neurologic: PERRL, EOMI, accommodation nl, no face palsy, no dysarthria, CN's II-XI intact bilaterally and moves all extremities Psychiatric: A+Ox3, anxious Skin: no rashes, normal color, warm/dry Results & Data Results & Data ([facility]) Vital Signs (Past 12 Hours) Vital Signs Temp Pulse Resp BP Pulse Ox 05/05/21 14:55 38.5 C H 138 H 24 123/87 97 05/05/21 14:52 130 H 18 94 Laboratory Results Short CBC 05/05/21 Range/Units 15:14 WBC 11.80 H (4.8-10.8) K/uL Hgb 11.6 L (12.0-16.0) g/dL Hct 37.8 (37-47) % Plt Count 208 (130-400) K/uL BMP 05/05/21 15:14 Sodium 142 Potassium 3.9 Chloride 115 H Carbon Dioxide 21 BUN 24 H Creatinine 1.95 H Glucose 148 H Calcium 9.2 Cardiac Enzymes 05/05/21 Range/Units 15:14 Troponin I < 0.015 (0-0.045) ng/ml Liver Function 05/05/21 Range/Units 15:14 Total Bilirubin 0.6 (0.2-1) mg/dl AST 18 (15-37) U/L ALT 33 (12-78) U/L Alkaline Phosphatase 154 H (45-117) U/L Albumin 3.2 L (3.4-5.0) gm/dl Urine 05/05/21 Range/Units 16:43 Urine Color Superior Urine Appearance Clear (Clear) Urine pH (4.5-7.5) Ur Specific [place] 1.024 (1.000-1.030) Urine Protein (Negative) Urine Glucose (UA) (Negative) Diagnostic Findings Chest X-Ray 05/05/21 14:52 XR chest 1V portable HISTORY: SEPSIS COMPARISON: Chest 10/06/2020. FINDINGS: Small patchy airspace opacities within the left lower lobe. Right lung is clear. The heart is normal in size. No pleural effusions. No pneumothorax. No evidence for pulmonary edema. IMPRESSION: Small patchy airspace opacities within the left lower lobe. This likely represents a pneumonia. This will be reassessed on the same day abdomen and pelvis CT. ACT 112: Negative or not required by law. Electronically signed by: Marcell Marquez M.D. 05/05/2021 4:05 PM Abdomen/Pelvis CT 05/05/21 14:[address] WITHOUT CONTRAST CT DOSE: 869.81 mGy.cm HISTORY: s/p ureteral stenting, left flank pain. Left lower quadrant pain TECHNIQUE: Multiaxial CT images of the abdomen and pelvis were performed without contrast. A dose lowering technique was utilized adhering to the principles of ALARA. COMPARISON STUDY: Abdomen and pelvis CT 10/04/2020. FINDINGS: The left basilar densities described on the same day chest x-ray or demonstrated to be subsegmental atelectasis. Calcified granuloma within the left lower lobe. The right lung base is clear. No suspicious lytic or blastic osseous lesions. There are old, healed left-sided rib fractures. Moderate hiatus hernia. Small fat-containing lower midline abdominal wall hernia. Mild hepatic steatosis. Cholecystectomy. The unenhanced spleen, adrenal glands, and pancreas are unremarkable. Normal caliber abdominal aorta. No retroperitoneal lymphadenopathy. The bladder is decompressed by Purvis catheter. Gas within the bladder lumen is likely due to the recent instrumentation. The uterus is surgically absent. Postoperative changes consistent with a prior subtotal colectomy. Fluid-filled distal sigmoid colon and rectum. This remains unchanged. No definite bowel wall thickening on this noncontrast study. There are few mildly dilated fluid-filled loops of small bowel within the left lower quadrant. These measure up to 2.9 cm in diameter. This could represent a mild focal ileus versus less likely partial small bowel obstruction. There are few punctate right renal calculi. No right ureteral stones are right-sided hydronephrosis. There is a 6.3 cm hypodense exophytic lesion within the upper pole the left kidney. This is similar to the outside hospital renal ultrasound on 04/24/2021. There is gas within the upper pole collecting system of the left kidney. There are multiple left renal calculi, which demonstrate a partial staghorn configuration. These have increased in number compared to the prior study. There is persistent dilatation of the left renal pelvis. There is urothelial thickening within the left renal pelvis and left ureter. A left ureteral stent appears in good position. Small to moderate amount of left retroperitoneal fluid which partially surrounds the mid to distal left ureter. This is concerning for extravasation of urine in the setting of a mid left ureteral injury. IMPRESSION: 1. A left ureteral stent appears in good position. Small to moderate amount of left retroperitoneal fluid which partially surrounds the mid to distal left ureter. This is concerning for extravasation of urine in the setting of a mid left ureteral injury. 2. Left-sided nephrolithiasis which has progressed in the interval. No ureteral calculi. 3. Right-sided nephrolithiasis. No right-sided hydronephrosis. 4. Persistent dilatation of the left renal pelvis/collecting system. There is urothelial thickening within the left renal pelvis. This could be reactive to the stent or represent an infectious process. Recommend correlation with urinalysis. 5. A few mildly dilated fluid-filled loops of small bowel within the left side of the abdomen. This favors an ileus. A partial small bowel obstruction is considered less likely but not entirely excluded. 6. Gas within the left renal collecting system is likely due to the recent instrumentation. 7. Redemonstration of 6.3 cm hypodense exophytic lesion within the upper pole of the left kidney. 8. Additional findings as described above. ACT 112: Negative or not required by law. Electronically signed by: Marcell Marquez M.D. 05/05/2021 4:31 PM ECG Additional Comments: Sinus tachycardia at 137 bpm Supervising Physician Co-Signing Physician Notes attending addendum : pt seen and examined care co-ordinated with Olivia Jo PA-c 65 yo F underwent ureteric stent placement admitted with abdominal discomfort , nausea complicated UTI/pyelonephritis -s/p recent uretric stone ordered IV cefepime urology chadd Garrett MD
[2021-05-05] MEDS ORDERED: SODIUM CHLORIDE 0.9% 1000ML 1,000 ML IV ONE (16:46)
[2021-05-05] MEDS ORDERED: ONDANSETRON INJ 2 MG/ML 2 ML VIAL IV PRN (17:02)
[2021-05-05] MEDS ORDERED: ALUMINUM/MAGNESIUM SUSP 30 ML UDC PO PRN (17:02)
[2021-05-05] MEDS ORDERED: MAGNESIUM HYDROXIDE SUSP 30 ML UDC PO PRN (17:02)
[2021-05-05 17:18] LABS: Appearance Urine Clear (Clear); Color Urine Orange; Specific Gravity Urine 1.024 (1.000-1.030)
[2021-05-05 17:24] LABS: Bacteria Urine 2+ (Negative); Epithelial Cell Urine 0-5 /lpf (0-5); RBC Urine >30 /hpf (0-4); WBC Urine >30 /hpf (0-5)
[2021-05-05] MEDS ORDERED: CONSULT PHARMACY STA (17:44)
[2021-05-05] MEDS ORDERED: NSS + 20MEQ KCL 20 MEQ/1,000 ML BAG IV SCH (19:15)
--- NOTE | 2021-05-05 19:26 | Urology Consultation ---
Date of Consultation May 05, 2021 Assessment & Plan (1) Sepsis: Patient has been admitted on the hospitalist service proceeding as follows: Patient is receiving intravenous fluids for resuscitation Patient is receiving broad-spectrum antibiotics in the form of cefepime Blood and urine cultures have both been sent and are pending. Antibiotics can be tailored based on the results of this information I suspect patient's sepsis is likely related to her recent urologic procedure and for the present time we will employ supportive measures as described above. In addition we will maintain the patient's Purvis catheter since it is draining bloody urine. The Purvis catheter does appear patent at the present time so no additional interventions are needed. I discussed case with my attending urologist Dr. Phillips who agrees with the above for the present time. History of Present Illness Reason for Consultation: Sepsis Status post ureteral stent and laser lithotripsy History of Present Illness This is a 65-year-old female who underwent a ureteral procedure yesterday which was 05/04/2021. On this date Dr. Adam of [facility] performed a cystoscopy with laser lithotripsy and kidney stone extraction along with a left ureteral stent placement. Patient was discharged home with a Purvis and the patient notes that her since her procedure her Purvis has been draining bloody urine. She feels as though the Purvis has been draining adequately as she does not have any pressure in her suprapubic region. She has, however, not felt well since her procedure. She has been febrile with shakes and chills. She has had nausea vomiting with abdominal pain as well as back pain. She has been able to tolerate very little in the way of oral intake. Because of the symptoms she contacted the urology office who referred her to the emergency department for further evaluation. Since arrival to the emergency department the patient did have a chest x-ray performed which showed concern for a left lower lobe pneumonia. A CT scan of the abdomen and pelvis was performed which did image the left lower lobe of the lung and the previously noted pneumonia was felt to be atelectasis. The CT scan did demonstrate that the patient had a left ureteral stent which appeared to be in good position. There was concern for extravasation of urine at the distal left ureter. Labs were performed were CBC revealed white blood cell count was 11.8. Her hemoglobin and hematocrit were 11.6 and 37.8 respectively and the platelet count was noted to be within normal range. Coagulation studies were noted to be normal. Chemistry profile showed her sodium and potassium were both within normal range. Her BUN and creatinine were elevated at 24 and 1.95 however these values were similar to her baseline. Lactic acid level was performed and was 0.3 which was not elevated. A procalcitonin level was not elevated. Urinalysis was performed however was difficult to interpret due to the color of the urine being bloody. She was however noted to have greater than 30 white blood cells per high-power field and 2+ bacteria. A Covid test was performed and was noted to be negative. At the time my interview patient appeared fatigued, but she was in no distress and her pain was well controlled Allergies Allergy/AdvReac Type Severity Reaction Status Date / Time salicylates Allergy Severe SHORTNESS Verified 05/05/21 16:10 OF BREATH Iodinated Contrast Media Allergy Intermediate EYES Verified 05/05/21 16:10 SWELLING/Hives amoxicillin [From Augmentin] Allergy Mild Rash Verified 05/05/21 16:10 aspirin Allergy Mild FACIAL Verified 05/05/21 16:10 SWELLING clavulanic acid Allergy Mild Rash Verified 05/05/21 16:10 [From Augmentin] hydromorphone Allergy Mild RASH/ITCHIN Verified 05/05/21 16:10 G fentanyl Allergy itching/felt Verified 05/05/21 16:10 like throat closing meperidine AdvReac Intermediate ITCH Verified 05/05/21 16:10 morphine AdvReac Intermediate ITCH Verified 05/05/21 16:10 tramadol AdvReac Mild itch Verified 05/05/21 16:10 Home Medications Medication Instructions Recorded Confirmed Type atorvastatin 40 mg tablet (Lipitor) 40 mg PO QPM 07/12/18 05/05/21 History clopidogrel 75 mg tablet (Plavix) 75 mg PO QPM 07/12/18 05/05/21 History pantoprazole 40 mg tablet,delayed 40 mg PO BID 07/12/18 05/05/21 History release (Protonix) riboflavin (vitamin B2) 400 mg 400 mg PO QPM 07/12/18 05/05/21 History tablet duloxetine 60 mg capsule,delayed 60 mg PO QAM 10/16/18 05/05/21 History release cholecalciferol (vitamin D3) 50 2,000 unit PO QAM 05/16/19 05/05/21 History mcg (2,000 unit) capsule (Vitamin D3) oxcarbazepine 300 mg tablet 300 mg PO BID 05/16/19 05/05/21 History (Trileptal) albuterol sulfate 90 mcg/actuation 2 puff INHALATION Q4H PRN 07/21/19 05/05/21 History aerosol inhaler magnesium oxide 400 mg PO HS 10/05/19 05/05/21 History Saccharomyces boulardii 250 mg 250 mg PO BID 08/17/20 05/05/21 History capsule (Florastor) ondansetron 4 mg disintegrating 4 mg PO Q8H PRN 08/17/20 05/05/21 History tablet doxepin 100 mg capsule 50 mg PO HS cap 12/11/20 05/05/21 History fluticasone fur. 100 mcg-umeclid 1 inh INHALATION DAILY PRN 12/11/20 05/05/21 History 62.5 mcg-vilant 25 mcg inhalat.powder (Trelegy Ellipta) metoprolol succinate 25 mg 25 mg PO PM tab 12/11/20 05/05/21 History tablet,extended release 24 hr metoprolol succinate 50 mg 50 mg PO QAM 12/11/20 05/05/21 History tablet,extended release 24 hr glipizide 2.5 mg tablet, extended 2.5 mg PO PM 04/29/21 05/05/21 History release 24 hr (Glucotrol XL) acetaminophen 300 mg-codeine 15 mg 1 tab PO Q8H PRN #10 tab 05/04/21 05/05/21 Rx tablet cephalexin 500 mg capsule 500 mg PO BID 7 Days #14 cap 05/04/21 05/05/21 Rx phenazopyridine 200 mg tablet 200 mg PO Q8H PRN #10 tab 05/04/21 05/05/21 Rx (Pyridium) tamsulosin 0.4 mg capsule 0.4 mg PO HS #30 cap 05/04/21 05/05/21 Rx acetaminophen 325 mg tablet 650 mg PO Q8H PRN 05/05/21 05/05/21 History (Tylenol) teriparatide 20 mcg/dose (620 20 mcg SUBCUT PM 05/05/21 05/05/21 History mcg/2.48 mL) subcutaneous pen injector (Forteo) Patient History Medical History Acute UTI (urinary tract infection) has presently per pt Anxiety Asthma well controlled per pt, rare inh use CHF (congestive heart failure) follows with Dr. Singh Chronic back pain Chronic headaches Chronic renal insufficiency stage 3, following with [facility] nephrology ([place]) Chronic respiratory failure with hypoxia Was on home oxygen in the past but no longer using at this time CKD (chronic kidney disease) COPD (chronic obstructive pulmonary disease) Deep vein thrombosis LLE - COULD NOT RECALL DATE - REPORTS SHE WAS TREATED AT [facility] W/ BLOOD THINNERS Depression Diabetes mellitus, type 2 GERD (gastroesophageal reflux disease) History of colon cancer 2012 S/P BOWEL RESECTION. History of COVID-27 Sep 2020 HTN (hypertension) Hyperlipidemia Mood disorder Morbid obesity with BMI of 40.0-44.9, adult Myocardial Infarction 06/2016--> [facility] -- CARDIAC CATH --> normal coronary anatomy without coronary obstruction but Plavix started per [facility] discharge summary On anticoagulant therapy plavix daily CALI (obstructive sleep apnea) Poor historian Seizure Pt states "i think i had them a long time ago". no other information. No hx of seizures noted in records Sinus tachycardia Follows with cardio Surgical History H/O hand surgery RIGHT History of appendectomy History of bilateral cataract extraction History of blepharoplasty History of cardiac cath 03/2018 - [place] - DENIES STENTS/ANGIOPLASTY - [facility] - FOLLOWS W/ DR. SINGH History of closure of ileostomy History of colectomy due to colon cancer History of colonoscopy History of cystoscopy History of esophageal dilatation History of esophagogastroduodenoscopy (EGD) History of hysterectomy History of kidney surgery at age 9 yrs "something was wrong and had to fix it" History of lithotripsy History of tooth extraction History of total abdominal hysterectomy and bilateral salpingo-oophorectomy Hx of cholecystectomy Family History Other Breast cancer Social History Smoking Status: Never smoker Second Hand Exposure: Yes (in past); Hx Alcohol Use: No Hx Substance Use: No Preferred Language: [place] Communication Ability: Effective Stock Controller Required: No Beliefs That Will Affect Care: None marital status: Current Living Situation: Alone Current Living Situation Comment: alone in [place] Feels Safe at Home: Yes Assistive Devices: Glasses Review of Systems Constitutional: + fever, + chills, + fatigue and + weakness Eyes: no diplopia Ear, Nose, Mouth, Throat: no ear pain Respiratory: no cough and no dyspnea Cardiovascular: no chest pain Gastrointestinal: + abdominal pain, + nausea and + vomiting Genitourinary: + hematuria Musculoskeletal: + back pain Integumentary: no rash Neurologic: + generalized weakness; no localized weakness Physical Exam Constitutional: well developed, well nourished and + obese Eyes: no conjunctival abnormality ENMT: Ears: no hearing impairment Neck: trachea midline Respiratory: normal respiratory effort; no respiratory distress and no labored breathing Cardiovascular: Rate/Rhythm: regular rate, regular rhythm and + tachycardic Gastrointestinal (Abdomen): Abdomen is rotund but soft. There is pain with palpation in the left side of her abdomen. Musculoskeletal: No calf tenderness Skin: no rashes Neurologic: moves all extremities Psychiatric: A+Ox3, euthymic affect Genitourinary: + CVA tenderness (Left-sided CVA tenderness to percussion noted) A Purvis catheter is in place draining dark red urine Results & Data ([facility]) Vital Signs (Past 12 Hours) Vital Signs Temp Pulse Pulse Resp BP BP Pulse Ox 05/05/21 18:00 125 H 20 99/55 L 98 05/05/21 15:30 134 H 24 103/73 95 05/05/21 15:10 125/79 93 05/05/21 14:55 38.5 C H 138 H 24 123/87 97 05/05/21 14:52 130 H 18 94 05/05/21 14:46 123/87 97 PG Care Time/CCT Total # of Minutes Spent Total Time Spent with Patient: Total time spent is greater than 50% in coordination of care (as documented) at patient's floor/unit and/or counseling patient: Coding Level of Care Code 69563 Inpt Consult Level 5 Diagnoses Sepsis A41.9
[2021-05-05] MEDS ORDERED: PROCHLORPERAZINE 5 MG in SYRINGE 4 ML IV PRN (19:29)
[2021-05-05] MEDS ORDERED: ACETAMINOPHEN 1,000 MG/100 ML VIAL IV SCH (19:29)
--- NOTE | 2021-05-05 19:36 | Electrocardiogram Report ---
Test Reason : Blood Pressure : / mmHG Vent. Rate : 137 BPM Atrial Rate : 137 BPM P-R Int : 158 ms QRS Dur : 052 ms QT Int : 264 ms P-R-T Axes : 055 -02 086 degrees QTc Int : 398 ms Poor data quality, interpretation may be adversely affected Probable Sinus tachycardia Otherwise normal ECG When compared with ECG of 04-MAY-2021 05:34, Vent. rate has increased BY 62 BPM artifact now present Confirmed by Corey Contreras ([id number]) on 05/05/2021 7:35:50 PM Referred By: Confirmed By:Corey Contreras
[2021-05-05] MEDS ORDERED: ALBUTEROL HFA 8 GM INHALER INH PRN (20:08)
[2021-05-05] MEDS ORDERED: PHENAZOPYRIDINE HCL 200 MG TAB PO PRN (20:08)
[2021-05-05] MEDS ORDERED: NON-FORMULARY MEDICATION (Fluticasone-Umeclidin-Vilanter [Trelegy Ellipta] 100-62.5-25 mcg INH PRN (20:08)
[2021-05-05] MEDS ORDERED: CEFEPIME CONSULT ACTIVE PRN (20:44)
[2021-05-05] MEDS ORDERED: CONSULT PHARMACY PRN (20:44)
[2021-05-05] MEDS ORDERED: UMECLIDINIUM/VILANTEROL 62.5/25MCG 7 PUFFS/INHALER INH PRN (21:07)
[2021-05-05] MEDS ORDERED: FLUTICASONE FUROATE 100MCG 14 PUFFS/INHALER INH PRN (21:07)
[2021-05-05] MEDS: DOXEPIN HCL 50 MG CAPSULE PO SCH (21:15)
[2021-05-05] MEDS: OXcarbazepine 150 MG TABLET PO SCH (21:16)
[2021-05-05] MEDS: TAMSULOSIN HCL 0.4 MG CAP PO SCH (21:16)
[2021-05-05] MEDS: METOPROLOL TARTRATE 1 MG/ML VIAL IV SCH (21:17)
[2021-05-05] MEDS: ACETAMINOPHEN 1,000 MG/100 ML VIAL IV SCH (22:57)
[2021-05-06] MEDS ORDERED: SODIUM CHLORIDE 0.9% 1000ML 1,000 ML IV SCH (03:30)
[2021-05-06] MEDS: METOPROLOL TARTRATE 1 MG/ML VIAL IV SCH ×4 (04:15→21:18)
[2021-05-06] MEDS: ACETAMINOPHEN 1,000 MG/100 ML VIAL IV SCH ×3 (06:05→22:49)
[2021-05-06] MEDS ORDERED: SODIUM CHLORIDE 0.9% 1000ML 500 ML IV ONE (07:51)
[2021-05-06] MEDS: DULoxetine HCL 60 MG CAP PO SCH (08:13)
[2021-05-06] MEDS: SODIUM CHLORIDE 0.45 % 1,000 ML IV SCH ×2 (08:13→16:29)
[2021-05-06] MEDS: OXcarbazepine 150 MG TABLET PO SCH ×2 (08:13→21:15)
[2021-05-06] MEDS ORDERED: CYCLOBENZAPRINE HCL 10 MG TAB PO STA (10:27)
[2021-05-06] MEDS ORDERED: oxyCODONE HCL SOLN 5 MG/5 ML UDC PO ONE (10:28)
[2021-05-06 10:39] LABS: Hemoglobin 9.3 g/dL (12.0-16.0); Mean Corpuscular Hgb Conc 29.1 g/dL (32-36); Mean Corpuscular Volume 103.2 fL (80-100); Mean Platelet Volume 9.8 fL (7.4-10.4); Platelet Count 179 K/uL (130-400); RDW Coefficient of Variation 14.3 % (11.5-14.5); RDW Standard Deviation 53.9 fL (36.4-46.3); White Blood Count 8.36 K/uL (4.8-10.8)
[2021-05-06 10:50] LABS: BUN Creatinine Ratio 12.8 (10-20); Calcium 8.7 mg/dl (8.5-10.1); Creatinine Clr Calc Pharmacy 39.8 ml/min; Est GFR (African American) 44.2 ml/min; Est GFR (Non-African American) 38.1 ml/min; Potassium 4.1 mmol/L (3.5-5.1)
[2021-05-06 10:51] LABS: Phosphorus 2.9 mg/dl (2.5-4.9)
--- NOTE | 2021-05-06 11:18 | Gastrointestinal Consultation ---
Date of Consultation May 06, 2021 Assessment & Plan (1) Chronic diarrhea: 65 year old female w/ history of colon CA s/p colectomy in 2010 w/ ileo-sigmoid anastomosis, s/p CCY with chronic diarrhea, now admitted to the w/ urosepsis, ? post-op ileus and GI asked to evaluate for diarrhea. This is chronic since CCY and colon resection. On exam, abd soft. - Will defer mgmt of her acute issues including urosepsis to primary, urology teams - Consider checking stools for C. diff nd culture given h/o C. diff in 08/2020 - If neg stool studies and when ? ileus improves, consider trial of Questran 4 gm daily if ongoing diarrhea - PPI daily - When able to take PO, trial of low FODMAPs diet - If no resolution of her diarrhea with above therapy consider f/u with OP GI provider, +/- OP colonoscopy - GI will sign off, please call with questions Thank you for allowing us to participate in the care of this patient. Please call with any acute changes, questions or concerns. Please see addendum below with additional recommendation from my supervising physician. Supervising Physician Co-Signing Physician Notes I have personally seen and examined the patient with Pippa Barajas PA-C. Her note reflects my exam and findings. I agree with her impression and plan. Chronic diarrhea. Treat current infection and than out patient follow up for long history of chronic diarrhea. Jaime Jain M.D. History of Present Illness Reason for Consultation: multiple diarrhea x2d, s/p colectomy Requesting Physician: Dr. Covarrubias Attending Physician: Arie Covarrubias MD History of Present Illness This is a 65 year old female w/ history of T2DM, dyslipidemia, CALI, asthma/COPD, bronchiectasis, HTN, CKD III, colon CA s/p colectomy in 2010, s/p CCY with chronic diarrhea who presents to the ED with fever, chills, abd pain following urology procedure yesterday (cystoscopy with L ureteronephroscopy, destruction of stone and basket retrieval of renal stones). On arrival pt febrile, tachycardic; labs notable for leukocytosis, bacteria in UA, CT with ? extravasation of urine in the left ureter, ? post-op ileus. Pt admitted with concern for urosepsis. GI asked to eval for diarrhea. This is a of nature. At times she has diarrhea 10-20 x daily since CCY and partial colectomy. Currently not taking anything for this. No black or bloody stools, abd pain, associated nausea/vomiting, CP. She did have C. diff in Aug 2020. EGD 2019: Gastroesophageal flap valve classified as Hill Grade IV (no fold, wide open lumen, hiatal hernia present). - Normal stomach. - Normal examined duodenum. - Dilation performed at the gastroesophageal junction. - No specimens collected. VCE 2019: negative Colonoscopy 10/2019: - The perianal and digital rectal examinations were normal. There was an ileocolonic anastomosis at 20 cm. The entire examined colon remnant was normal. The examined portion of the ileum was normal. EGD 2019: The GE junction was at 30 cm. There was a mild ring at the GE junction that was fractured with a biopsy forceps. There was a moderate hiatal hernia (hill class 4). The stomach mucosa was normal. Random biopsies done. The small intestine was normal. Random biopsies done. Allergies Allergy/AdvReac Type Severity Reaction Status Date / Time salicylates Allergy Severe SHORTNESS Verified 05/05/21 16:10 OF BREATH Iodinated Contrast Media Allergy Intermediate EYES Verified 05/05/21 16:10 SWELLING/Hives amoxicillin [From Augmentin] Allergy Mild Rash Verified 05/05/21 16:10 aspirin Allergy Mild FACIAL Verified 05/05/21 16:10 SWELLING clavulanic acid Allergy Mild Rash Verified 05/05/21 16:10 [From Augmentin] hydromorphone Allergy Mild RASH/ITCHIN Verified 05/05/21 16:10 G fentanyl Allergy itching/felt Verified 05/05/21 16:10 like throat closing meperidine AdvReac Intermediate ITCH Verified 05/05/21 16:10 morphine AdvReac Intermediate ITCH Verified 05/05/21 16:10 tramadol AdvReac Mild itch Verified 05/05/21 16:10 Home Medications Medication Instructions Recorded Confirmed Type atorvastatin 40 mg tablet (Lipitor) 40 mg PO QPM 07/12/18 05/05/21 History clopidogrel 75 mg tablet (Plavix) 75 mg PO QPM 07/12/18 05/05/21 History pantoprazole 40 mg tablet,delayed 40 mg PO BID 07/12/18 05/05/21 History release (Protonix) riboflavin (vitamin B2) 400 mg 400 mg PO QPM 07/12/18 05/05/21 History tablet duloxetine 60 mg capsule,delayed 60 mg PO QAM 10/16/18 05/05/21 History release cholecalciferol (vitamin D3) 50 2,000 unit PO QAM 05/16/19 05/05/21 History mcg (2,000 unit) capsule (Vitamin D3) oxcarbazepine 300 mg tablet 300 mg PO BID 05/16/19 05/05/21 History (Trileptal) albuterol sulfate 90 mcg/actuation 2 puff INHALATION Q4H PRN 07/21/19 05/05/21 History aerosol inhaler magnesium oxide 400 mg PO HS 10/05/19 05/05/21 History Saccharomyces boulardii 250 mg 250 mg PO BID 08/17/20 05/05/21 History capsule (Florastor) ondansetron 4 mg disintegrating 4 mg PO Q8H PRN 08/17/20 05/05/21 History tablet doxepin 100 mg capsule 50 mg PO HS cap 12/11/20 05/05/21 History fluticasone fur. 100 mcg-umeclid 1 inh INHALATION DAILY PRN 12/11/20 05/05/21 History 62.5 mcg-vilant 25 mcg inhalat.powder (Trelegy Ellipta) metoprolol succinate 25 mg 25 mg PO PM tab 12/11/20 05/05/21 History tablet,extended release 24 hr metoprolol succinate 50 mg 50 mg PO QAM 12/11/20 05/05/21 History tablet,extended release 24 hr glipizide 2.5 mg tablet, extended 2.5 mg PO PM 04/29/21 05/05/21 History release 24 hr (Glucotrol XL) acetaminophen 300 mg-codeine 15 mg 1 tab PO Q8H PRN #10 tab 05/04/21 05/05/21 Rx tablet cephalexin 500 mg capsule 500 mg PO BID 7 Days #14 cap 05/04/21 05/05/21 Rx phenazopyridine 200 mg tablet 200 mg PO Q8H PRN #10 tab 05/04/21 05/05/21 Rx (Pyridium) tamsulosin 0.4 mg capsule 0.4 mg PO HS #30 cap 05/04/21 05/05/21 Rx acetaminophen 325 mg tablet 650 mg PO Q8H PRN 05/05/21 05/05/21 History (Tylenol) teriparatide 20 mcg/dose (620 20 mcg SUBCUT PM 05/05/21 05/05/21 History mcg/2.48 mL) subcutaneous pen injector (Forteo) Patient History Medical History Acute UTI (urinary tract infection) has presently per pt Anxiety Asthma well controlled per pt, rare inh use CHF (congestive heart failure) follows with Dr. Singh Chronic back pain Chronic headaches Chronic renal insufficiency stage 3, following with [facility] nephrology ([place]) Chronic respiratory failure with hypoxia Was on home oxygen in the past but no longer using at this time CKD (chronic kidney disease) COPD (chronic obstructive pulmonary disease) Deep vein thrombosis LLE - COULD NOT RECALL DATE - REPORTS SHE WAS TREATED AT [facility] W/ BLOOD THINNERS Depression Diabetes mellitus, type 2 GERD (gastroesophageal reflux disease) History of colon cancer 2012 S/P BOWEL RESECTION. History of COVID-27 Sep 2020 HTN (hypertension) Hyperlipidemia Mood disorder Morbid obesity with BMI of 40.0-44.9, adult Myocardial Infarction 06/2016--> [facility] -- CARDIAC CATH --> normal coronary anatomy without coronary obstruction but Plavix started per [facility] discharge summary On anticoagulant therapy plavix daily CALI (obstructive sleep apnea) Poor historian Seizure Pt states "i think i had them a long time ago". no other information. No hx of seizures noted in records Sinus tachycardia Follows with cardio Surgical History H/O hand surgery RIGHT History of appendectomy History of bilateral cataract extraction History of blepharoplasty History of cardiac cath 03/2018 - [place] - DENIES STENTS/ANGIOPLASTY - [facility] - FOLLOWS W/ DR. SINGH History of closure of ileostomy History of colectomy due to colon cancer History of colonoscopy History of cystoscopy History of esophageal dilatation History of esophagogastroduodenoscopy (EGD) History of hysterectomy History of kidney surgery at age 9 yrs "something was wrong and had to fix it" History of lithotripsy History of tooth extraction History of total abdominal hysterectomy and bilateral salpingo-oophorectomy Hx of cholecystectomy Family History Other Breast cancer Social History Smoking Status: Never smoker Second Hand Exposure: Yes (in past); Hx Alcohol Use: No Hx Substance Use: No Preferred Language: Martiniquais Communication Ability: Effective Boat Washer Required: No Beliefs That Will Affect Care: Jew marital status: Current Living Situation: Spouse Current Living Situation Comment: Lives with ; home health aide Feels Safe at Home: Yes Safety Concerns: Feels Safe At This Time Assistive Devices: None Review of Systems Review of Systems: All systems reviewed & are unremarkable except as noted in Subjective Physical Exam Constitutional: WD/WN, vitals as above Respiratory: normal respiratory effort Cardiovascular: tachycardic, regular rate Gastrointestinal (Abdomen): BS x 4 quadrants, soft, nontender, nondistended Skin: no rashes, warm and dry Psychiatric: A+Ox3, euthymic affect Results & Data ([facility]) Vital Signs (Past 12 Hours) Vital Signs Temp Pulse Pulse Resp BP BP BP 05/06/21 10:17 36.8 C 107 H 20 108/64 05/06/21 08:56 109/73 05/06/21 07:33 37.4 C 107 H 19 88/61 L 05/06/21 04:15 111 H 107/75 05/06/21 03:00 36.8 C 111 H 20 107/75 Pulse Ox 05/06/21 10:17 97 05/06/21 08:56 05/06/21 07:33 95 05/06/21 04:15 05/06/21 03:00 98 Laboratory Results 05/06/21 05/06/21 05/06/21 Range/Units 10:14 10:14 07:04 WBC 8.36 (4.8-10.8) K/uL RBC 3.10 L (4.2-5.4) M/uL Hgb 9.3 L (12.0-16.0) g/dL Hct 32.0 L (37-47) % MCV 103.2 H (80-100) fL MCH 30.0 (25-34) pg MCHC 29.1 L (32-36) g/dL RDW Std Deviation 53.9 H (36.4-46.3) fL RDW Coeff of Teresa 14.3 (11.5-14.5) % Plt Count 179 (130-400) K/uL MPV 9.8 (7.4-10.4) fL Immature Gran % (Auto) % Neut % (Auto) % Lymph % (Auto) % [place] % (Auto) % Eos % (Auto) % Baso % (Auto) % Neut # (Auto) (1.4-6.5) K/uL Lymph # (Auto) (1.2-3.4) K/uL [place] # (Auto) (0.11-0.59) K/uL Eos # (Auto) (0-0.5) K/uL Baso # (Auto) (0-0.2) K/uL Immature Gran # (Auto) (0.00-0.02) K/uL PT (9.0-12.0) Seconds INR (0.9-1.1) APTT (21.0-31.0) Seconds PTT Ratio Sodium 146 H (136-145) mmol/L Potassium 4.1 (3.5-5.1) mmol/L Chloride 122 H (98-107) mmol/L Carbon Dioxide 20 L (21-32) mmol/L Anion Gap 4.0 (3-11) BUN 18 (7-18) mg/dl Creatinine 1.42 H D (0.6-1.2) mg/dl Est Cr Clr Drug Dosing 39.8 ml/min Est GFR ( Amer) 44.2 ml/min Est GFR (Non-Af Amer) 38.1 ml/min BUN/Creatinine Ratio 12.8 (10-20) Glucose 108 H (70-99) mg/dl POC Glucose 117 H (70-99) mg/dl Lactate Calcium 8.7 (8.5-10.1) mg/dl Phosphorus 2.9 (2.5-4.9) mg/dl Magnesium 2.0 (1.8-2.4) mg/dl Total Bilirubin (0.2-1) mg/dl AST (15-37) U/L ALT (12-78) U/L Alkaline Phosphatase (45-117) U/L Troponin I (0-0.045) ng/ml Total Protein (6.4-8.2) gm/dl Albumin (3.4-5.0) gm/dl Globulin (2.5-4.0) gm/dl Albumin/Globulin Ratio (0.9-2) Procalcitonin (0-0.5) ng/ml Urine Color Urine Appearance (Clear) Urine pH (4.5-7.5) Ur Specific [place] (1.000-1.030) Urine Protein (Negative) Urine Glucose (UA) (Negative) Urine Ketones (Negative) Urine Blood (Negative) Urine Nitrite (Negative) Urine Bilirubin (Negative) Urine Urobilinogen (Negative) Ur Leukocyte Esterase (Negative) Urine RBC (0-4) /hpf Urine WBC (0-5) /hpf Ur Epithelial Cells (0-5) /lpf Urine Bacteria (Negative) COVID-19 Eval Order SARS-CoV-2 (PCR) (Negative) 05/05/21 05/05/21 05/05/21 Range/Units 20:24 17:21 17:21 WBC (4.8-10.8) K/uL RBC (4.2-5.4) M/uL Hgb (12.0-16.0) g/dL Hct (37-47) % MCV (80-100) fL MCH (25-34) pg MCHC (32-36) g/dL RDW Std Deviation (36.4-46.3) fL RDW Coeff of Teresa (11.5-14.5) % Plt Count (130-400) K/uL MPV (7.4-10.4) fL Immature Gran % (Auto) % Neut % (Auto) % Lymph % (Auto) % [place] % (Auto) % Eos % (Auto) % Baso % (Auto) % Neut # (Auto) (1.4-6.5) K/uL Lymph # (Auto) (1.2-3.4) K/uL [place] # (Auto) (0.11-0.59) K/uL Eos # (Auto) (0-0.5) K/uL Baso # (Auto) (0-0.2) K/uL Immature Gran # (Auto) (0.00-0.02) K/uL PT (9.0-12.0) Seconds INR (0.9-1.1) APTT (21.0-31.0) Seconds PTT Ratio Sodium (136-145) mmol/L Potassium (3.5-5.1) mmol/L Chloride (98-107) mmol/L Carbon Dioxide (21-32) mmol/L Anion Gap (3-11) BUN (7-18) mg/dl Creatinine (0.6-1.2) mg/dl Est Cr Clr Drug Dosing ml/min Est GFR ( Amer) ml/min Est GFR (Non-Af Amer) ml/min BUN/Creatinine Ratio (10-20) Glucose (70-99) mg/dl POC Glucose 102 H (70-99) mg/dl Lactate 0.3 L Cancelled Calcium (8.5-10.1) mg/dl Phosphorus (2.5-4.9) mg/dl Magnesium (1.8-2.4) mg/dl Total Bilirubin (0.2-1) mg/dl AST (15-37) U/L ALT (12-78) U/L Alkaline Phosphatase (45-117) U/L Troponin I (0-0.045) ng/ml Total Protein (6.4-8.2) gm/dl Albumin (3.4-5.0) gm/dl Globulin (2.5-4.0) gm/dl Albumin/Globulin Ratio (0.9-2) Procalcitonin (0-0.5) ng/ml Urine Color Urine Appearance (Clear) Urine pH (4.5-7.5) Ur Specific [place] (1.000-1.030) Urine Protein (Negative) Urine Glucose (UA) (Negative) Urine Ketones (Negative) Urine Blood (Negative) Urine Nitrite (Negative) Urine Bilirubin (Negative) Urine Urobilinogen (Negative) Ur Leukocyte Esterase (Negative) Urine RBC (0-4) /hpf Urine WBC (0-5) /hpf Ur Epithelial Cells (0-5) /lpf Urine Bacteria (Negative) COVID-19 Eval Order SARS-CoV-2 (PCR) (Negative) 05/05/21 05/05/21 05/05/21 Range/Units 16:43 16:30 16:30 WBC (4.8-10.8) K/uL RBC (4.2-5.4) M/uL Hgb (12.0-16.0) g/dL Hct (37-47) % MCV (80-100) fL MCH (25-34) pg MCHC (32-36) g/dL RDW Std Deviation (36.4-46.3) fL RDW Coeff of Teresa (11.5-14.5) % Plt Count (130-400) K/uL MPV (7.4-10.4) fL Immature Gran % (Auto) % Neut % (Auto) % Lymph % (Auto) % [place] % (Auto) % Eos % (Auto) % Baso % (Auto) % Neut # (Auto) (1.4-6.5) K/uL Lymph # (Auto) (1.2-3.4) K/uL [place] # (Auto) (0.11-0.59) K/uL Eos # (Auto) (0-0.5) K/uL Baso # (Auto) (0-0.2) K/uL Immature Gran # (Auto) (0.00-0.02) K/uL PT (9.0-12.0) Seconds INR (0.9-1.1) APTT (21.0-31.0) Seconds PTT Ratio Sodium (136-145) mmol/L Potassium (3.5-5.1) mmol/L Chloride (98-107) mmol/L Carbon Dioxide (21-32) mmol/L Anion Gap (3-11) BUN (7-18) mg/dl Creatinine (0.6-1.2) mg/dl Est Cr Clr Drug Dosing ml/min Est GFR ( Amer) ml/min Est GFR (Non-Af Amer) ml/min BUN/Creatinine Ratio (10-20) Glucose (70-99) mg/dl POC Glucose (70-99) mg/dl Lactate Calcium (8.5-10.1) mg/dl Phosphorus (2.5-4.9) mg/dl Magnesium (1.8-2.4) mg/dl Total Bilirubin (0.2-1) mg/dl AST (15-37) U/L ALT (12-78) U/L Alkaline Phosphatase (45-117) U/L Troponin I (0-0.045) ng/ml Total Protein (6.4-8.2) gm/dl Albumin (3.4-5.0) gm/dl Globulin (2.5-4.0) gm/dl Albumin/Globulin Ratio (0.9-2) Procalcitonin (0-0.5) ng/ml Urine Color [place] Urine Appearance Clear (Clear) Urine pH (4.5-7.5) Ur Specific [place] 1.024 (1.000-1.030) Urine Protein (Negative) Urine Glucose (UA) (Negative) Urine Ketones (Negative) Urine Blood (Negative) Urine Nitrite (Negative) Urine Bilirubin (Negative) Urine Urobilinogen (Negative) Ur Leukocyte Esterase (Negative) Urine RBC >30 H (0-4) /hpf Urine WBC >30 H (0-5) /hpf Ur Epithelial Cells 0-5 (0-5) /lpf Urine Bacteria 2+ H (Negative) COVID-19 Eval Order Covid19 at [facility] SARS-CoV-2 (PCR) NEGATIVE (Negative) 05/05/21 05/05/21 05/05/21 Range/Units 15:14 15:14 15:14 WBC (4.8-10.8) K/uL RBC (4.2-5.4) M/uL Hgb (12.0-16.0) g/dL Hct (37-47) % MCV (80-100) fL MCH (25-34) pg MCHC (32-36) g/dL RDW Std Deviation (36.4-46.3) fL RDW Coeff of Teresa (11.5-14.5) % Plt Count (130-400) K/uL MPV (7.4-10.4) fL Immature Gran % (Auto) % Neut % (Auto) % Lymph % (Auto) % [place] % (Auto) % Eos % (Auto) % Baso % (Auto) % Neut # (Auto) (1.4-6.5) K/uL Lymph # (Auto) (1.2-3.4) K/uL [place] # (Auto) (0.11-0.59) K/uL Eos # (Auto) (0-0.5) K/uL Baso # (Auto) (0-0.2) K/uL Immature Gran # (Auto) (0.00-0.02) K/uL PT 9.8 (9.0-12.0) Seconds INR 1.0 (0.9-1.1) APTT 24.0 (21.0-31.0) Seconds PTT Ratio 0.9 Sodium 142 (136-145) mmol/L Potassium 3.9 (3.5-5.1) mmol/L Chloride 115 H (98-107) mmol/L Carbon Dioxide 21 (21-32) mmol/L Anion Gap 6.0 (3-11) BUN 24 H (7-18) mg/dl Creatinine 1.95 H (0.6-1.2) mg/dl Est Cr Clr Drug Dosing 28.8 ml/min Est GFR ( Amer) 30.1 ml/min Est GFR (Non-Af Amer) 26.0 ml/min BUN/Creatinine Ratio 12.2 (10-20) Glucose 148 H (70-99) mg/dl POC Glucose (70-99) mg/dl Lactate Calcium 9.2 (8.5-10.1) mg/dl Phosphorus (2.5-4.9) mg/dl Magnesium 1.9 (1.8-2.4) mg/dl Total Bilirubin 0.6 (0.2-1) mg/dl AST 18 (15-37) U/L ALT 33 (12-78) U/L Alkaline Phosphatase 154 H (45-117) U/L Troponin I < 0.015 (0-0.045) ng/ml Total Protein 7.9 (6.4-8.2) gm/dl Albumin 3.2 L (3.4-5.0) gm/dl Globulin 4.7 H (2.5-4.0) gm/dl Albumin/Globulin Ratio 0.7 L (0.9-2) Procalcitonin 0.43 (0-0.5) ng/ml Urine Color Urine Appearance (Clear) Urine pH (4.5-7.5) Ur Specific [place] (1.000-1.030) Urine Protein (Negative) Urine Glucose (UA) (Negative) Urine Ketones (Negative) Urine Blood (Negative) Urine Nitrite (Negative) Urine Bilirubin (Negative) Urine Urobilinogen (Negative) Ur Leukocyte Esterase (Negative) Urine RBC (0-4) /hpf Urine WBC (0-5) /hpf Ur Epithelial Cells (0-5) /lpf Urine Bacteria (Negative) COVID-19 Eval Order SARS-CoV-2 (PCR) (Negative) 07/27/21 Range/Units 15:14 WBC 11.80 H (4.8-10.8) K/uL RBC 3.81 L (4.2-5.4) M/uL Hgb 11.6 L (12.0-16.0) g/dL Hct 37.8 (37-47) % MCV 99.2 (80-100) fL MCH 30.4 (25-34) pg MCHC 30.7 L (32-36) g/dL RDW Std Deviation 50.4 H (36.4-46.3) fL RDW Coeff of Teresa 14.0 (11.5-14.5) % Plt Count 208 (130-400) K/uL MPV 10.1 (7.4-10.4) fL Immature Gran % (Auto) 0.3 % Neut % (Auto) 84.6 % Lymph % (Auto) 5.2 % [place] % (Auto) 9.7 % Eos % (Auto) 0.1 % Baso % (Auto) 0.1 % Neut # (Auto) 10.00 H (1.4-6.5) K/uL Lymph # (Auto) 0.61 L (1.2-3.4) K/uL [place] # (Auto) 1.14 H (0.11-0.59) K/uL Eos # (Auto) 0.01 (0-0.5) K/uL Baso # (Auto) 0.01 (0-0.2) K/uL Immature Gran # (Auto) 0.03 H (0.00-0.02) K/uL PT (9.0-12.0) Seconds INR (0.9-1.1) APTT (21.0-31.0) Seconds PTT Ratio Sodium (136-145) mmol/L Potassium (3.5-5.1) mmol/L Chloride (98-107) mmol/L Carbon Dioxide (21-32) mmol/L Anion Gap (3-11) BUN (7-18) mg/dl Creatinine (0.6-1.2) mg/dl Est Cr Clr Drug Dosing ml/min Est GFR ( Amer) ml/min Est GFR (Non-Af Amer) ml/min BUN/Creatinine Ratio (10-20) Glucose (70-99) mg/dl POC Glucose (70-99) mg/dl Lactate Calcium (8.5-10.1) mg/dl Phosphorus (2.5-4.9) mg/dl Magnesium (1.8-2.4) mg/dl Total Bilirubin (0.2-1) mg/dl AST (15-37) U/L ALT (12-78) U/L Alkaline Phosphatase (45-117) U/L Troponin I (0-0.045) ng/ml Total Protein (6.4-8.2) gm/dl Albumin (3.4-5.0) gm/dl Globulin (2.5-4.0) gm/dl Albumin/Globulin Ratio (0.9-2) Procalcitonin (0-0.5) ng/ml Urine Color Urine Appearance (Clear) Urine pH (4.5-7.5) Ur Specific [place] (1.000-1.030) Urine Protein (Negative) Urine Glucose (UA) (Negative) Urine Ketones (Negative) Urine Blood (Negative) Urine Nitrite (Negative) Urine Bilirubin (Negative) Urine Urobilinogen (Negative) Ur Leukocyte Esterase (Negative) Urine RBC (0-4) /hpf Urine WBC (0-5) /hpf Ur Epithelial Cells (0-5) /lpf Urine Bacteria (Negative) COVID-19 Eval Order SARS-CoV-2 (PCR) (Negative) Diagnostic Findings CTAP: FINDINGS: The left basilar densities described on the same day chest x-ray or demonstrated to be subsegmental atelectasis. Calcified granuloma within the left lower lobe. The right lung base is clear. No suspicious lytic or blastic osseous lesions. There are old, healed left-sided rib fractures. Moderate hiatus hernia. Small fat-containing lower midline abdominal wall hernia. Mild hepatic steatosis. Cholecystectomy. The unenhanced spleen, adrenal glands, and pancreas are unremarkable. Normal caliber abdominal aorta. No retroperitoneal lymphadenopathy. The bladder is decompressed by Purvis catheter. Gas within the bladder lumen is likely due to the recent instrumentation. The uterus is surgically absent. Postoperative changes consistent with a prior subtotal colectomy. Fluid-filled distal sigmoid colon and rectum. This remains unchanged. No definite bowel wall thickening on this noncontrast study. There are few mildly dilated fluid-filled loops of small bowel within the left lower quadrant. These measure up to 2.9 cm in diameter. This could represent a mild focal ileus versus less likely partial small bowel obstruction. There are few punctate right renal calculi. No right ureteral stones are right-sided hydronephrosis. There is a 6.3 cm hypodense exophytic lesion within the upper pole the left kidney. This is similar to the outside hospital renal ultrasound on 04/24/2021. There is gas within the upper pole collecting system of the left kidney. There are multiple left renal calculi, which demonstrate a partial staghorn configuration. These have increased in number compared to the prior study. There is persistent dilatation of the left renal pelvis. There is urothelial thickening within the left renal pelvis and left ureter. A left ureteral stent appears in good position. Small to moderate amount of left retroperitoneal fluid which partially surrounds the mid to distal left ureter. This is concerning for extravasation of urine in the setting of a mid left ureteral injury. IMPRESSION: 1. A left ureteral stent appears in good position. Small to moderate amount of left retroperitoneal fluid which partially surrounds the mid to distal left ureter. This is concerning for extravasation of urine in the setting of a mid left ureteral injury. 2. Left-sided nephrolithiasis which has progressed in the interval. No ureteral calculi. 3. Right-sided nephrolithiasis. No right-sided hydronephrosis. 4. Persistent dilatation of the left renal pelvis/collecting system. There is urothelial thickening within the left renal pelvis. This could be reactive to the stent or represent an infectious process. Recommend correlation with urinalysis. 5. A few mildly dilated fluid-filled loops of small bowel within the left side of the abdomen. This favors an ileus. A partial small bowel obstruction is considered less likely but not entirely excluded. 6. Gas within the left renal collecting system is likely due to the recent instrumentation. 7. Redemonstration of 6.3 cm hypodense exophytic lesion within the upper pole of the left kidney. 8. Additional findings as described above.
--- NOTE | 2021-05-06 11:48 | Urology Progress Note ---
Date of Service May 06, 2021 Assessment & Plan (1) Complicated UTI (urinary tract infection): (2) S/P ureteral stent placement: Plan: 65yo F who is s/p recent urological procedure admitted with complicated UTI/sepsis and possible post-operative ileus - Patient is s/p Cysto, Left Ureteronephroscopy, Laser litho, stent placement, biopsy of ureter, and brushing of ureter on 05/[address] Adam. - CT findings and plan of care reviewed with Dr. Adam, on-call urologist. - CTAP from admission on 05/06 noted the left ureteral stent to be in good position; Small to moderate amount of left retroperitoneal fluid which partially surrounds the mid to distal left ureter, concerning for left ureteral injury, and possible postoperative ileus. - She is afebrile. Labs reviewed- Wbc 8.36 and creatinine 1.42 - Continue to trend. - UC&S and BCx pending, continues on IV Cefepime. - No acute intervention warranted at this time. - Operative findings from 05/04 included severe ureteritis for which a biopsy was performed due to severity. There were no signs of perforation and therefore, the mild fluid noted around the ureter on CT likely represents an inflammatory response. - Maintain hernandez catheter. - Continue supportive care and antibiotic therapy, follow cultures. - Will continue to follow. Admission and Anticipated Discharge Date Admission Date: May 05, 2021 Subjective Pt examined at bedside this AM. Resting in bed on arrival. Appears fatigued, no acute distress. She reports intermittent abdominal/flank pain on the left side. Hernandez catheter intact, draining cloudy yellow urine with sediment in tubing. Urine output overnight -650ml Some dysuria. Denies fevers or chills. Tmax 38.5 yesterday 05/05 @1455 No nausea or vomiting. Has been NPO. Review of Systems Constitutional: as per Subjective / HPI Gastrointestinal: as per Subjective / HPI Genitourinary: as per Subjective / HPI Physical Exam Constitutional: + obese; no acute distress Respiratory: normal respiratory effort; no respiratory distress and no labored breathing Gastrointestinal (Abdomen): Percussion/Palpation: abdomen soft; no guarding and abdomen not rigid Neurologic: awake Psychiatric: Orientation: alert, oriented x 3 and cooperative Genitourinary: + CVA tenderness ( Mild Left-sided CVA tenderness with palpation) Hernandez catheter intact Results & Data ([facility]) Vital Signs (Past 12 Hours) Vital Signs Temp Pulse Pulse Resp BP BP BP 05/06/21 10:17 36.8 C 107 H 20 108/64 05/06/21 08:56 109/73 05/06/21 07:33 37.4 C 107 H 19 88/61 L 05/06/21 04:15 111 H 107/75 05/06/21 03:00 36.8 C 111 H 20 107/75 Pulse Ox 05/06/21 10:17 97 05/06/21 08:56 05/06/21 07:33 95 05/06/21 04:15 05/06/21 03:00 98 PG Care Time/CCT Total # of Minutes Spent Total Time Spent with Patient: Total time spent is greater than 50% in coordination of care (as documented) at patient's floor/unit and/or counseling patient: Coding Level of Care Code 30767 Subseq Hosp Care Lvl 2 Diagnoses Complicated UTI (urinary tract infection) N39.0 S/P ureteral stent placement Z96.0
--- NOTE | 2021-05-06 13:31 | XRay Report ---
KUB CLINICAL HISTORY: possible ileus on CT a/p COMPARISON STUDY: CT of the abdomen and pelvis May 05, 2021. FINDINGS: The bowel gas pattern is unremarkable. Left ureteral stent is in place. Multiple left renal calculi are again noted. A 3 mm right renal calculus is noted. No ureteral calculi are identified. T here are cholecystectomy clips. IMPRESSION: 1. Normal bowel gas pattern. 2. Left ureteral stent in place. No ureteral calculi. 3. Bilateral nephrolithiasis. ACT 112: Negative or not required by law. Electronically signed by: Abdirashid Motta M.D. 05/06/2021 1:30 PM
[2021-05-06] MEDS: CEFEPIME 2,000 MG in SYRINGE 0 ML IV SCH (15:19)
--- NOTE | 2021-05-06 19:05 | Hospitalist Progress Note ---
Date of Service May 06, 2021 Assessment & Plan (1) Chronic diarrhea: (2) Ileus, postoperative: (3) Complicated UTI (urinary tract infection): (4) Sepsis: Plan: 65yo F with a PMH of DM II, COPD, CKD III, HTN, bipolar disorder, chronic respiratory failure on home O2 (2L), laparoscopic colectomy total w/o proctectomy w/ ileostomy and ileoproctostomy in 2010 for colon Ca presented 05/05 w/ fever, chills, and abdominal pain. She is being managed in the floor for the following: (1) Sepsis: (2) Complicated UTI (urinary tract infection): (3) S/P ureteral stent placement: Pt presented with septic picture 05/05 w/ increased pulse, temp, mild leucocytosis; had N/V and abd pain at presentation complaints Pt is s/p Cystoscopy with Lt Ureteronephroscopy, Retrograde Pyelogram with Ureteral Dilation, Laser Destruction of Stone and Basket of Renal stones, Insertion of Stent Left, with biopsy of ureter and brushing of ureter (Left) on 05/04 (Dr. Clancy). She was discharged on Keflex on . Has CVA tenderness Admission CTAP noted left ureteral stent to be in good position. Urology on board- recommendation appreciated. Pt to be on hernandez, c/w Cefepime. Has one episode of low BP in AM likely 2/2 multiple diarrheal event overnight, improved with bolus IVF plus her diarrheal movements also improved by morning. Awaiting final results on urine and blood culture (4) Ileus, postoperative / Chronic Diarrhea Possible post operative ileus on admission CT abd/pelvis--> having multiple diarrhea overnight. Patient had 8 bowel movement on the night of 05/05 f/b 1 in the morning of 05/06. Pt has h/o total colectomy in 2010 H/o total colectomy, GI consulted for recommendation: recommends C. diff check (has h/o C. diff in 08/2020). If negative and when ileus improves - Questran 4 gm daily for ongoing diarrhea. PPI daily. FODMAPs diet when able. If still persisting, then OP GI f/u +- colonoscopy. Will keep her NPO today, keep her on IVF - 1/2 NS to D5 1/2 NS (NPO status and has high serum chloride) Recheck CBC and electrolytes tina AM, reassess for diet, f/u on C dff. 5. Chronic respiratory failure with hypoxia: Baseline 2L continuously and at night. Titrate for John >92%, currently in 4L with no resp distress. (6) Diabetes mellitus, type 2: A1c 5.8 in December 2020 SSI while in-patient when needed BSG q6h or ACHS as appropriate (7) COPD (chronic obstructive pulmonary disease): At baseline. Continue Trelegy inhlaer, 2L NC O2 continuously Titrate O2 as needed. (8) Mood disorder: Continue Doxepin, duloxetine, oxcarbazepine (9) CKD (chronic kidney disease): Cr 1.7-2 over past month, former baseline ~mid 1s Improving BUN and Cr towards baseline Avoid nephrotoxic agents when able, BMP daily (10) CALI (obstructive sleep apnea): Intolerant to bipap. Continue 2L O2 HS DVT Ppx: SCDs; no anti coagulation for now d/t hematuria Code status: FULL PCP: Mannie Admission and Anticipated Discharge Date Admission Date: May 05, 2021 Subjective Patient was lying down in bed, mild-mod. distress from pain belly, on NC O2 [4]L (Baseline 2L for Chr Hypoxic Resp Failure). Patient denies Headache, Dizziness, Fever, Chills, Sore throat, Cough, Chest pain, palpitations, increased SOB. She complained of belly pain, more on the left lumbar and lower abdominal quadrants. Her catheter had yellowish urine in tube, reddish color in collection, will continue to monitor if its improving in color. She had 8 diarrheal events overnight and 1 in AM per RN. Physical Exam Physical Exam: GENERAL: Alert and oriented x3. mild-mod distress, on 4L NC. HEENT: No pallor, no icterus. Pupils equal, round and reactive to light. Oral mucosa moist. NECK: No JVD, no neck masses. HEART: S1 and S2 heard. Regular rate and rhythm. No murmur, no gallop appreciated. RESPIRATORY SYSTEM: Normal AP diameter. No accessory muscle use. No wheezing, bibasilar decreased breath sounds noted. ABDOMEN: Soft, bowel sounds present, left lumbar tenderness and lower abdominal quadrant tenderness, no distention. CENTRAL NERVOUS SYSTEM: Alert and oriented x3. No facial droop. Speech is clear. Obeys simple commands. Moves extremities. EXTREMITIES: trace edema, no erythema seen. Urinary Collection: red urine in the bad and yellow in the catheter tube. Results & Data Results & Data ([facility]) Vital Signs (Past 12 Hours) Vital Signs Temp Pulse Pulse Resp BP BP Pulse Ox 05/06/21 16:29 115 H 05/06/21 14:58 37.0 C 114 H 16 125/81 100 05/06/21 14:01 36.8 C 115 H 20 131/72 100 05/06/21 11:48 36.9 C 108 H 16 120/81 99 05/06/21 10:17 36.8 C 107 H 20 108/64 97 05/06/21 08:56 109/73 05/06/21 07:33 37.4 C 107 H 19 88/61 L 95
[2021-05-06] MEDS: TAMSULOSIN HCL 0.4 MG CAP PO SCH (21:15)
[2021-05-06] MEDS: DOXEPIN HCL 50 MG CAPSULE PO SCH (21:15)
[2021-05-06] MEDS: D5W AND 1/2NSS 1,000 ML IV SCH (21:17)
[2021-05-06] MEDS: MoRPHine SULFATE 2 MG/ML CARP IV PRN (21:27)
[2021-05-07] MEDS: METOPROLOL TARTRATE 1 MG/ML VIAL IV SCH ×4 (03:54→20:56)
[2021-05-07] MEDS: D5W AND 1/2NSS 1,000 ML IV SCH (05:00)
[2021-05-07] MEDS: MoRPHine SULFATE 2 MG/ML CARP IV PRN ×2 (05:05→10:35)
[2021-05-07] MEDS: ACETAMINOPHEN 1,000 MG/100 ML VIAL IV SCH ×3 (06:06→23:24)
[2021-05-07 07:44] LABS: Hemoglobin 8.5 g/dL (12.0-16.0); Mean Corpuscular Hemoglobin 29.6 pg (25-34); Mean Corpuscular Hgb Conc 29.3 g/dL (32-36); Mean Platelet Volume 10.2 fL (7.4-10.4); Platelet Count 174 K/uL (130-400); RDW Coefficient of Variation 14.2 % (11.5-14.5); RDW Standard Deviation 52.6 fL (36.4-46.3); Red Blood Count 2.87 M/uL (4.2-5.4); White Blood Count 6.39 K/uL (4.8-10.8)
--- NOTE | 2021-05-07 07:59 | Urology Progress Note ---
Date of Service May 07, 2021 Assessment & Plan (1) Complicated UTI (urinary tract infection): (2) S/P ureteral stent placement: Plan: 65 year-old female patient who is s/p recent urological procedure admitted with complicated UTI/sepsis and possible post-operative ileus. - Patient is s/p cystoscopy, left ureteroscopy, laser lithotripsy, stent placement, biopsy of ureter, and brushing of ureter on 05/[address] Adam. - Patient clinically progressing, remains afebrile. - Labs reviewed - white count normal, creatinine improved to 1.15. - Preliminary urine culture no growth, continue antibiotic therapy. - Preliminary blood cultures no growth after 24 hours. - No acute intervention warranted at this time, continue with supportive care. - Maintain hernandez catheter for now. - Diet advancement per primary team and GI recommendations. - Will continue to follow while inpatient. Admission and Anticipated Discharge Date Admission Date: May 05, 2021 Subjective Patient seen and examined at bedside. She is resting comfortably in bed. She is oriented and non-toxic in appearance. Denies flank pain but does note left lower abdominal discomfort. Overall, she reports she is feeling "much better" since hospital admission. Denies nausea or vomiting. Denies fevers or chills. Denies dysuria or hematuria. Hernandez catheter intact draining cloudy yellow urine with sediment. Remains NPO. Chart review: Wbc 6.39 Hgb 8.5 Creatinine 1.15 (previously 1.42) Preliminary urine culture no growth. Preliminary blood cultures no growth after 24 hours. Patient currently on IV Cefepime. Denies additional urologic concerns today. Review of Systems Constitutional: as per Subjective / HPI; no fever and no chills Gastrointestinal: as per Subjective / HPI; no nausea and no vomiting Genitourinary: as per Subjective / HPI Physical Exam Constitutional: well developed and well nourished; no acute distress and not ill appearing Respiratory: normal respiratory effort and able to speak in complete sentences; no respiratory distress and no audible wheezes On oxygen therapy via nasal cannula. Gastrointestinal (Abdomen): Inspection/Auscultation: abdomen normal to inspection; abdomen not distended Percussion/Palpation: abdomen soft; abdomen nontender and no guarding Psychiatric: Orientation: oriented x 3 and cooperative Affect: euthymic affect Does appear drowsy. Genitourinary: No CVA tenderness. Hernandez catheter intact draining cloudy yellow urine with sediment. Results & Data ([facility]) Vital Signs (Past 12 Hours) Vital Signs Temp Pulse Pulse Resp BP BP Pulse Ox 05/07/21 02:38 37.2 C 102 H 20 103/70 94 05/06/21 23:53 109 H 05/06/21 22:54 37.0 C 100 H 19 105/70 100 05/06/21 21:18 105 H 123/79 PG Care Time/CCT Total # of Minutes Spent Total Time Spent with Patient: Total time spent is greater than 50% in coordination of care (as documented) at patient's floor/unit and/or counseling patient: Coding Level of Care Code 63186 Subseq Hosp Care Lvl 2 Diagnoses Complicated UTI (urinary tract infection) N39.0 S/P ureteral stent placement Z96.0
[2021-05-07 08:08] LABS: Calcium 8.6 mg/dl (8.5-10.1); Creatinine Clr Calc Pharmacy 50.7 ml/min; Est GFR (Non-African American) 49.2 ml/min; Potassium 3.7 mmol/L (3.5-5.1)
[2021-05-07] MEDS ORDERED: POTASSIUM CHLORIDE CRTAB 20 MEQ TABCR PO STA (08:16)
[2021-05-07 08:17] LABS: Phosphorus 1.9 mg/dl (2.5-4.9)
[2021-05-07] MEDS: DULoxetine HCL 60 MG CAP PO SCH (08:23)
[2021-05-07] MEDS ORDERED: SODIUM CHLORIDE 0.9% 1000ML 500 ML IV ONE (08:25)
[2021-05-07] MEDS: OXcarbazepine 150 MG TABLET PO SCH ×2 (08:25→20:48)
[2021-05-07 10:05] LABS: Ferritin 544.5 ng/ml (8-388)
[2021-05-07 10:32] LABS: Folate (Folic Acid) 4.8 ng/ml (>5.38)
--- NOTE | 2021-05-07 14:43 | Hospitalist Progress Note ---
Date of Service May 07, 2021 Assessment & Plan (1) Sepsis: Plan: likely secondary to recent urologic intervention. (2) Complicated UTI (urinary tract infection): (3) Chronic diarrhea: (4) Ileus, postoperative: Plan: 65yo F with a PMH of DM II, COPD, CKD III, HTN, bipolar disorder, chronic respiratory failure on home O2 (2L), laparoscopic colectomy total w/o proctectomy w/ ileostomy and ileoproctostomy in 2010 for colon Ca presented 05/05 w/ fever, chills, and abdominal pain. She is being managed in the floor for the following: (#) Sepsis likely secondary to recent urologic intervention: (#) Complicated UTI (urinary tract infection): (#) S/P ureteral stent placement: Pt presented with septic picture 05/05 w/ increased pulse, temp, mild leucocytosis; had N/V and abd pain at presentation complaints Pt is s/p Cystoscopy with Lt Ureteronephroscopy, Retrograde Pyelogram with Ureteral Dilation, Laser Destruction of Stone and Basket of Renal stones, Insert ion of Stent Left, with biopsy of ureter and brushing of ureter (Left) on 05/04 (Dr. Clancy). She was discharged on Keflex on . Her condition is likely secondary to recent urologic intervention. Pt reports improvement in her flank pain. Admission CTAP noted left ureteral stent to be in good position. Urology on board- recommendation appreciated. Pt to be on hernandez, c/w Cefepime. Urine analysis at presentation was positive for RBC, WBC and Bacteria, U Culture inconclusive. Blood Culture preliminary report inconclusive. F/u with final results. Will DC IV fluid and put her on diet. She wants to eat. (#) Ileus, postoperative / Chronic Diarrhea Possible post operative ileus on admission CT abd/pelvis--> having multiple diarrhea overnight. Patient had 8 bowel movement on the night of 05/05 f/b 1 in the morning of 05/06. Pt has h/o total colectomy in 2010 H/o total colectomy, GI consulted for recommendation: recommends C. diff check (has h/o C. diff in 08/2020). If negative and when ileus improves - Questran 4 gm daily for ongoing diarrhea. PPI daily. FODMAPs diet when able. If still persisting, then OP GI f/u +- colonoscopy. Diarrhea controlled, no BM since yesterday AM, belly pain improved, will put her on liquid diet and advance as tolerated. Recheck CBC and electrolytes tina AM # Anemia Hb dropped to 8.5 from 11.6 at presentation likely 2/2 hematuria, Urine has groslly cleared up. Expect Hb to be stable. Iron profile showed iron deficiency with folate deficiency. Will add folate and PO iron daily. Continue through discharge. Repeat CBC tina AM f/u with results. #. Chronic respiratory failure with hypoxia: Baseline 2L continuously and at night. Titrate for SaO2 >92%, currently on 2L with no resp distress. (#) Diabetes mellitus, type 2: A1c 5.8 in December 2020 SSI while in-patient when needed BSG q6h or ACHS as appropriate (#) COPD (chronic obstructive pulmonary disease): At baseline. Continue Trelegy inhlaer, 2L NC O2 continuously Titrate O2 as needed. (#) Mood disorder: Continue Doxepin, duloxetine, oxcarbazepine (#) CKD (chronic kidney disease): Cr 1.7-2 over past month, former baseline ~mid 1s Improved BUN and Cr to baseline Avoid nephrotoxic agents when able, BMP daily (#) CALI (obstructive sleep apnea): Intolerant to bipap. Continue 2L O2 HS Replaced Phosphorous and Potassium. Monitor electrolytes tomorrow. DVT Ppx: SCDs; no anti coagulation for now d/t hematuria Code status: FULL PCP: Mannie Admission and Anticipated Discharge Date Admission Date: May 05, 2021 Subjective Patient was lying down in bed, NAD, NC O2 [2]L (her baseline). Patient denies Headache, Dizziness, Fever, Chills, Sore throat, Cough, Chest pain, palpitations, SOB, Belly pain (improved from yesterday). Last Bowel movement [Yesterday AM]. No issues overnight. Feels better than yesterday. She stopped having diarrheal movements. Pt reports improvement in her left and lower belly pain. Urine collection in catheter bag yellow from grossly hematuric yesterday. Per RN she is doing better, no acute events overnight. Physical Exam Physical Exam: GENERAL: Alert and oriented x3. NAD, on 2L NC O2. HEENT: No pallor, no icterus. Pupils equal, round and reactive to light. Oral mucosa moist. NECK: No JVD, no neck masses. HEART: S1 and S2 heard. Regular rate and rhythm. No murmur, no gallop. RESPIRATORY SYSTEM: Normal AP diameter. No accessory muscle use. No wheezing, no crackles. Decreased bibasilar breath sounds ABDOMEN: Soft, bowel sounds present, minimal tenderness in lower belly (marked improvement from yesterday), no distention. CENTRAL NERVOUS SYSTEM: Alert and oriented x3. No facial droop. Speech is clear. Obeys simple commands. Moves extremities. EXTREMITIES: No edema, no erythema seen. Results & Data Results & Data ([facility]) Vital Signs (Past 12 Hours) Vital Signs Temp Pulse Pulse Resp BP BP Pulse Ox 05/07/21 11:51 36.7 C 95 H 19 95/62 L 98 05/07/21 10:34 77 159/78 H 05/07/21 07:56 37.4 C 87 19 86/57 L 96 05/07/21 02:38 37.2 C 102 H 20 103/70 94
[2021-05-07] MEDS ORDERED: ACETAMINOPHEN 325 MG TAB PO PRN (15:29)
[2021-05-07] MEDS ORDERED: POT PHOSPHATE MONOBASIC W/ SOD TAB PO ONE (15:30)
[2021-05-07] MEDS: CEFEPIME 2,000 MG in SYRINGE 0 ML IV SCH (15:38)
[2021-05-07] MEDS: FOLIC ACID 1 MG TAB PO SCH (15:56)
[2021-05-07] MEDS: TAMSULOSIN HCL 0.4 MG CAP PO SCH (20:48)
[2021-05-07] MEDS: DOXEPIN HCL 50 MG CAPSULE PO SCH (20:48)
[2021-05-08] MEDS: METOPROLOL TARTRATE 1 MG/ML VIAL IV SCH ×3 (04:08→16:40)
[2021-05-08] MEDS: ACETAMINOPHEN 1,000 MG/100 ML VIAL IV SCH ×2 (06:13→16:37)
--- NOTE | 2021-05-08 08:06 | Urology Progress Note ---
Date of Service May 08, 2021 Assessment & Plan (1) Complicated UTI (urinary tract infection): (2) S/P ureteral stent placement: Plan: 65 year-old female patient who is s/p recent urological procedure admitted with complicated UTI/sepsis and possible post-operative ileus. - Plan of care reviewed with Dr. Adam, on-call urologist. - Patient is s/p cystoscopy, left ureteroscopy, laser lithotripsy, stent placement, biopsy of ureter, and brushing of ureter on 05/[address] Adam. - Patient continues to clinically progress, remains afebrile. - Labs reviewed - white count and creatinine normal. - Urine culture final with three types of organisms present, all low counts probable skin agnes. - Preliminary blood cultures no growth after 48 hours. - No acute intervention warranted at this time, continue with supportive care. - Recommend discharge home with hernandez catheter. - Recommend home with total of 10 days antibiotic therapy. - Diet advancement per primary team and GI recommendations. - Will arrange outpatient follow-up with urology service for continued care. - Expected clinical course reviewed with patient, all questions answered. Thank you for allowing us to participate in the acute care of Mrs. Nesbitt. Please reconsult us with additional questions, concerns or changes in patient status. Admission and Anticipated Discharge Date Admission Date: May 05, 2021 Subjective Patient seen and examined at bedside. She is awake, alert, oriented and non-toxic in appearance. Denies flank pain but does note left lower abdominal discomfort that remains intermittent. Continues to clinically feel better each day. Denies nausea or vomiting. Denies fevers or chills. Denies dysuria or hematuria. Hernandez catheter intact draining cloudy yellow urine with sediment. Has been advanced to full liquid diet. Chart review - Currently afebrile. T-max in 24 hours 37.6 Wbc 5.67 Hgb 9.5 Creatinine 1.11 Final urine culture with three types of organisms present, all low counts probable skin agnes. Preliminary blood cultures no growth after 48 hours. Patient currently in IV Cefepime. Denies additional urologic concerns today. Review of Systems Constitutional: as per Subjective / HPI; no fever and no chills Gastrointestinal: as per Subjective / HPI; no nausea and no vomiting Genitourinary: as per Subjective / HPI Physical Exam Constitutional: well developed and well nourished; no acute distress and not ill appearing Respiratory: normal respiratory effort and able to speak in complete sentences; no respiratory distress and no audible wheezes On oxygen therapy via nasal cannula. Gastrointestinal (Abdomen): Inspection/Auscultation: abdomen normal to inspection; abdomen not distended Percussion/Palpation: abdomen soft; abdomen nontender and no guarding Psychiatric: Orientation: alert, oriented x 3 and cooperative Affect: euthymic affect Genitourinary: No CVA tenderness. Hernandez catheter intact draining cloudy yellow urine with sediment. Results & Data ([facility]) Vital Signs (Past 12 Hours) Vital Signs Temp Pulse Pulse Resp BP Pulse Ox 05/08/21 03:18 36.7 C 87 18 120/79 99 05/07/21 23:41 36.7 C 86 18 107/74 96 05/07/21 23:00 83 PG Care Time/CCT Total # of Minutes Spent Total Time Spent with Patient: Total time spent is greater than 50% in coordination of care (as documented) at patient's floor/unit and/or counseling patient: Coding Level of Care Code 31706 Subseq Hosp Care Lvl 2 Diagnoses Complicated UTI (urinary tract infection) N39.0 S/P ureteral stent placement Z96.0
[2021-05-08 08:11] LABS: Hematocrit (blood only) 32.4 % (37-47); Hemoglobin 9.5 g/dL (12.0-16.0); Mean Corpuscular Hemoglobin 29.7 pg (25-34); Mean Corpuscular Hgb Conc 29.3 g/dL (32-36); Mean Corpuscular Volume 101.3 fL (80-100); Mean Platelet Volume 9.8 fL (7.4-10.4); Platelet Count 164 K/uL (130-400); RDW Coefficient of Variation 13.9 % (11.5-14.5); RDW Standard Deviation 52.1 fL (36.4-46.3); White Blood Count 5.67 K/uL (4.8-10.8)
[2021-05-08 08:15] LABS: BUN Creatinine Ratio 11.6 (10-20); Calcium 9.1 mg/dl (8.5-10.1); Creatinine Clr Calc Pharmacy 52.3 ml/min; Est GFR (African American) 59.5 ml/min; Est GFR (Non-African American) 51.3 ml/min; Magnesium 1.8 mg/dl (1.8-2.4); Potassium 3.6 mmol/L (3.5-5.1)
[2021-05-08 08:19] LABS: Phosphorus 2.5 mg/dl (2.5-4.9)
[2021-05-08] MEDS: DULoxetine HCL 60 MG CAP PO SCH (08:51)
[2021-05-08] MEDS: OXcarbazepine 150 MG TABLET PO SCH (08:51)
[2021-05-08] MEDS: FOLIC ACID 1 MG TAB PO SCH (08:52)
[2021-05-08] MEDS ORDERED: FERROUS SULFATE 325 MG TAB PO SCH (09:00)
--- NOTE | 2021-05-08 11:31 | Hospitalist Progress Note ---
Date of Service May 08, 2021 Assessment & Plan (1) Sepsis: Plan: likely secondary to recent urologic intervention. (2) Complicated UTI (urinary tract infection): (3) Chronic diarrhea: (4) Ileus, postoperative: Plan: 65yo F with a PMH of DM II, COPD, CKD III, HTN, bipolar disorder, chronic respiratory failure on home O2 (2L), laparoscopic colectomy total w/o proctectomy w/ ileostomy and ileoproctostomy in 2010 for colon Ca presented 05/05 w/ fever, chills, and abdominal pain. She is being managed in the floor for the following: (#) Sepsis likely secondary to recent urologic intervention: (#) Complicated UTI (urinary tract infection): (#) S/P ureteral stent placement: Pt presented with septic picture 05/05 w/ increased pulse, temp, mild leucocytosis; had N/V and abd pain at presentation complaints Pt is s/p Cystoscopy with Lt Ureteronephroscopy, Retrograde Pyelogram with Ureteral Dilation, Laser Destruction of Stone and Basket of Renal stones, Insert ion of Stent Left, with biopsy of ureter and brushing of ureter (Left) on 05/04 (Dr. Clancy). She was discharged on Keflex on . Her condition is likely secondary to recent urologic intervention. Pt reports improvement in her flank pain. Admission CTAP noted left ureteral stent to be in good position. Urology on board- recommendation appreciated. Pt to be on hernandez, c/w Cefepime. Urine analysis at presentation was positive for RBC, WBC and Bacteria, U Culture inconclusive. Blood Culture preliminary report (48 hour) inconclusive. f/u with blood culture as outpatient via PCP. Transitioned her to oral levofloxacin She tolerated diet well. (#) Ileus, postoperative / Chronic Diarrhea Possible post operative ileus on admission CT abd/pelvis--> having multiple diarrhea overnight. Patient had 8 bowel movement on the night of 05/05 f/b 1 in the morning of 05/06. Pt has h/o total colectomy in 2010 H/o total colectomy, GI consulted for recommendation: recommends C. diff check (has h/o C. diff in 08/2020). If negative and when ileus improves - Questran 4 gm daily for ongoing diarrhea. PPI daily. FODMAPs diet when able. If still persisting, then OP GI f/u +- colonoscopy. Diarrhea controlled, no BM since last 2 days, belly pain improved, tolerated diet advancement well. # Anemia Hb dropped to 8.5 from 11.6 at presentation likely 2/2 hematuria, Urine has grossly cleared up. Expect Hb to be stable. Iron profile showed iron deficiency with folate deficiency. c/w folate and PO iron daily. Continue through discharge. #. Chronic respiratory failure with hypoxia: Baseline 2L continuously and at night. Stable (#) Diabetes mellitus, type 2: A1c 5.8 in December 2020 Will resume her home meds on discharge (#) COPD (chronic obstructive pulmonary disease): At baseline. Continue Trelegy inhlaer, 2L NC O2 continuously (#) Mood disorder: Continue Doxepin, duloxetine, oxcarbazepine (#) CKD (chronic kidney disease): Cr 1.7-2 over past month, former baseline ~mid 1s Improved BUN and Cr to baseline Avoid nephrotoxic agents when able. (#) CALI (obstructive sleep apnea): Intolerant to bipap. Continue 2L O2 HS She is being discharged today to home with [facility]. At Discharge, following instructions was conveyed to the patient: We are discharging you with Hernandez Catheter in, please follow up with urology doctor within a week's time on further recommendation. Pleas follow up with your Primary care within a week's time. Please take your Antibiotic as prescribed. Please set up outpatient Physical therapy. She needs CBC and BMP in a week's time. Code status: FULL PCP: Mannie Admission and Anticipated Discharge Date Admission Date: May 05, 2021 Subjective Patient was lying down in bed, NAD, NC O2 [2]L (her baseline). Patient denies Headache, Dizziness, Fever, Chills, Sore throat, Cough, Chest pain, palpitations, SOB, Belly pain (improved towards normal). Last Bowel movement [today AM], no blood/black stool. No issues overnight. Feels better - no more diarrheal movements. Pt reports improvement in her left and lower belly pain. Urine collection in catheter bag maintaining yellow color (was hematuric until 2 days before). Physical Exam Physical Exam: GENERAL: Alert and oriented x3. NAD, on 2L NC O2. HEENT: No pallor, no icterus. Pupils equal, round and reactive to light. Oral mucosa moist. NECK: No JVD, no neck masses. HEART: S1 and S2 heard. Regular rate and rhythm. No murmur, no gallop. RESPIRATORY SYSTEM: Normal AP diameter. No accessory muscle use. No wheezing, no crackles. Decreased bibasilar breath sounds ABDOMEN: Soft, bowel sounds present, minimal tenderness in lower belly, no distention. CENTRAL NERVOUS SYSTEM: Alert and oriented x3. No facial droop. Speech is clear. Obeys simple commands. Moves extremities. EXTREMITIES: No edema, no erythema seen. Results & Data Results & Data ([facility]) Vital Signs (Past 12 Hours) Vital Signs Temp Pulse Resp BP Pulse Ox 05/08/21 08:14 37.1 C 94 H 18 112/75 98 05/08/21 03:18 36.7 C 87 18 120/79 99 05/07/21 23:41 36.7 C 86 18 107/74 96
[2021-05-08] MEDS ORDERED: POTASSIUM CHLORIDE CRTAB 20 MEQ TABCR PO STA (11:37)
[2021-05-08] MEDS: CEFEPIME 2,000 MG in SYRINGE 0 ML IV SCH (16:36)
--- NOTE | 2021-05-08 19:52 | Discharge Summary ---
Date of Service May 08, 2021 Admission HPI Per Admitting Provider This is a 65yo F with a PMH of DM II, COPD, CKD III, HTN, bipolar disorder, chronic respiratory failure on home O2, history of sinus tachycardia and other medical problems listed below who presents with fever, chills and abdominal pain following urologic procedure yesterday. Has history of bilateral nephrolithiasis following with urology who underwent cystoscopy with left ureteronephroscopy, laser destruction of dtone and basket of renal stones, insertion of L stent, with biopsy of ureter and brushing of ureter yesterday as outpatient procedure with Dr. Adam. [place] unwell last evening following procedure with nausea,dry heaves and tenderness in left lower abdomen. Woke up this morning with chills and low-grade fever. Nausea and vomiting continued and as well as left abdominal pain described as constant sharp pain. Called urology this morning with instruction to come to ED for further evaluation. Continues to have 7/10 sharp lower L abdominal pain, nausea, poor appetite, fever and chills. Denies chest pain, SOB or palpitations. Hernandez catheter in place. Admission Exam Per Admitting Provider General Appearance: WD/WN, vitals as above, NAD, sitting up in bed, obese, conversing easily Head: normocephalic, atraumatic Eyes: normal inspection, PERRL, conjunctivae normal, anicteric sclerae ENT: external ear and nose normal, oropharynx normal Neck: normal visual inspection, trachea midline, no thyromegaly Respiratory: normal respiratory effort, lungs clear to auscultation, no wheeze, rales, rhonchi. No accessory muscle use Cardiovascular: tachycardic rate, rhythm, no murmur appreciated, normal peripheral pulses, no BLE edema. Vessels: no JVD Chest: normal inspection of chest Abdomen/GI: normal bowel sounds, soft, TTP in left lower quadrant, no hepatosplenomegaly : Hernandez catheter in place, collection bag with mclean red colored urine Extremities/Musculoskeletal: no cyanosis or clubbing, extremities motor strength 5/5 Neurologic: PERRL, EOMI, accommodation nl, no face palsy, no dysarthria, CN's II-XI intact bilaterally and moves all extremities Psychiatric: A+Ox3, anxious Skin: no rashes, normal color, warm/dry Principal Diagnosis Complicated UTI/Acute pyelonephritis 2/2 recent urologic intervention Post-operative ileus Anemia Discharge Exam as per today's progress note Discharge Data Allergies Allergy/AdvReac Type Severity Reaction Status Date / Time salicylates Allergy Severe SHORTNESS Verified 05/05/21 16:10 OF BREATH Iodinated Contrast Media Allergy Intermediate EYES Verified 05/05/21 16:10 SWELLING/Hives amoxicillin [From Augmentin] Allergy Mild Rash Verified 05/05/21 16:10 aspirin Allergy Mild FACIAL Verified 05/05/21 16:10 SWELLING clavulanic acid Allergy Mild Rash Verified 05/05/21 16:10 [From Augmentin] hydromorphone Allergy Mild RASH/ITCHIN Verified 05/05/21 16:10 G fentanyl Allergy itching/felt Verified 05/05/21 16:10 like throat closing meperidine AdvReac Intermediate ITCH Verified 05/05/21 16:10 morphine AdvReac Intermediate ITCH Verified 05/05/21 16:10 tramadol AdvReac Mild itch Verified 05/05/21 16:10 Consultations 05/05/21 16:27 ED Decision to Admit Stat 05/05/21 17:44 Consult Urology Routine 05/06/21 10:45 Consult Gastroenterology Routine Ordered Studies 05/05/21 14:54 CT abd pelvis wo con Stat Hospital Course (1) Sepsis: likely secondary to recent urologic intervention. (2) Complicated UTI (urinary tract infection): (3) Chronic diarrhea: (4) Ileus, postoperative: 65yo F with a PMH of DM II, COPD, CKD III, HTN, bipolar disorder, chronic respiratory failure on home O2 (2L), laparoscopic colectomy total w/o proctectomy w/ ileostomy and ileoproctostomy in 2010 for colon Ca presented 05/05 w/ fever, chills, and abdominal pain. She is being managed in the floor for the following: (#) Sepsis likely secondary to recent urologic intervention: (#) Complicated UTI (urinary tract infection): (#) S/P ureteral stent placement: Pt presented with septic picture 05/05 w/ increased pulse, temp, mild leucocytosis; had N/V and abd pain at presentation complaints Pt is s/p Cystoscopy with Lt Ureteronephroscopy, Retrograde Pyelogram with Ureteral Dilation, Laser Destruction of Stone and Basket of Renal stones, Insertion of Stent Left, with biopsy of ureter and brushing of ureter (Left) on 05/04 (Dr. Clancy). She was discharged on Keflex on . Her condition is likely secondary to recent urologic intervention. Pt reports improvement in her flank pain. Admission CTAP noted left ureteral stent to be in good position. Urology on board- recommendation appreciated. Pt to be on hernandez, c/w Cefepime. Urine analysis at presentation was positive for RBC, WBC and Bacteria, U Culture inconclusive. Blood Culture preliminary report (48 hour) inconclusive. f/u with blood culture as outpatient via PCP. Transitioned her to oral levofloxacin She tolerated diet well. (#) Ileus, postoperative / Chronic Diarrhea Possible post operative ileus on admission CT abd/pelvis--> having multiple diarrhea overnight. Patient had 8 bowel movement on the night of 05/05 f/b 1 in the morning of 05/06. Pt has h/o total colectomy in 2010 H/o total colectomy, GI consulted for recommendation: recommends C. diff check (has h/o C. diff in 08/2020). If negative and when ileus improves - Questran 4 gm daily for ongoing diarrhea. PPI daily. FODMAPs diet when able. If still persisting, then OP GI f/u +- colonoscopy. Diarrhea controlled, no BM since last 2 days, belly pain improved, tolerated diet advancement well. # Anemia Hb dropped to 8.5 from 11.6 at presentation likely 2/2 hematuria, Urine has grossly cleared up. Expect Hb to be stable. Iron profile showed iron deficiency with folate deficiency. c/w folate and PO iron daily. Continue through discharge. #. Chronic respiratory failure with hypoxia: Baseline 2L continuously and at night. Stable (#) Diabetes mellitus, type 2: A1c 5.8 in December 2020 Will resume her home meds on discharge (#) COPD (chronic obstructive pulmonary disease): At baseline. Continue Trelegy inhlaer, 2L NC O2 continuously (#) Mood disorder: Continue Doxepin, duloxetine, oxcarbazepine (#) CKD (chronic kidney disease): Cr 1.7-2 over past month, former baseline ~mid 1s Improved BUN and Cr to baseline Avoid nephrotoxic agents when able. (#) CALI (obstructive sleep apnea): Intolerant to bipap. Continue 2L O2 HS She is being discharged today to home with [facility]. At Discharge, following instructions was conveyed to the patient: We are discharging you with Hernandez Catheter in, please follow up with urology doctor within a week's time on further recommendation. Pleas follow up with your Primary care within a week's time. Please take your Antibiotic as prescribed. Please set up outpatient Physical therapy. She needs CBC and BMP in a week's time. Code status: FULL PCP: Mannie Total Time Total Time Spent Total Time Spent (In Minutes): 45 Discharge Plan Discharge Items Patient Disposition: Home - Home Health Services Reason For Visit: FEVER/ABDOMINAL PAIN Discharge Diagnosis: Complicated UTI/Acute pyelonephritis 2/2 recent urologic intervention Post-operative ileus Anemia Condition on Discharge: Fair Activity: Resume your previous activity Non-emergency contact: Primary Care Provider Call non-emergency contact if: you have any medication questions Follow-up/Referrals: Lo Chand DO [Primary Care Provider] - (Date & Time 05/15/2021 11:10 AM Provider Lo Chand DO Department Family Medicine [facility] ) Diet: Carb Consistent or DM2, Heart Healthy and Low Fat Addtl Attending Provider Instructions: We are discharging you with Hernandez Catheter in, please follow up with urology doctor within a week's time on further recommendation. Pleas follow up with your Primary care within a week's time. Please take your Antibiotic as prescribed. Please set up outpatient Physical therapy. She needs CBC and BMP in a week's time. Pending Studies at Discharge: Yes Studies:: Final result on 05/05 Blood culture is pending. No growth after 48 hours at time of discharge. Stand-Alone Forms: [email or web address], Smoking Cessation Medications and DC Order Prescriptions: New folic acid 1 mg Tablet 1 mg PO QAM 30 Days Qty: 30 RF: 0 ferrous sulfate 325 mg (65 mg iron) Tablet,Delayed Release (Dr/Ec) 325 mg PO QAM 30 Days Qty: 30 RF: 0 levofloxacin 750 mg tablet 750 mg PO DAILY 7 Days Qty: 7 RF: 0 Continued metoprolol succinate 50 mg tablet extended release 24 hr 50 mg PO QAM RF: 0 Trelegy Ellipta 100-62.5-25 mcg blister with device 1 inh inhalation DAILY PRN (Reason: Shortness Of Breath) RF: 0 doxepin 100 mg capsule 50 mg PO HS RF: 0 metoprolol succinate 25 mg tablet extended release 24 hr 25 mg PO PM RF: 0 albuterol sulfate 90 mcg/actuation Hfa Aerosol Inhaler 2 puff INHALATION Q4H PRN (Reason: Shortness Of Breath) RF: 0 magnesium oxide 400 mg magnesium Tablet 400 mg PO HS RF: 0 atorvastatin [Lipitor] 40 mg Tablet 40 mg PO QPM RF: 0 clopidogrel [Plavix] 75 mg Tablet 75 mg PO QPM RF: 0 pantoprazole [Protonix] 40 mg Tablet,Delayed Release (Dr/Ec) 40 mg PO BID RF: 0 riboflavin (vitamin B2) 400 mg Tablet 400 mg PO QPM RF: 0 duloxetine 60 mg Capsule,Delayed Release(Dr/Ec) 60 mg PO QAM RF: 0 oxcarbazepine [Trileptal] 300 mg tablet 300 mg PO BID RF: 0 cholecalciferol (vitamin D3) [Vitamin D3] 2,000 unit Capsule 2,000 unit PO QAM RF: 0 Saccharomyces boulardii [Florastor] 250 mg capsule 250 mg PO BID RF: 0 ondansetron 4 mg tablet,disintegrating 4 mg PO Q8H PRN (Reason: nausea and vomiting) RF: 0 acetaminophen [Tylenol] 325 mg Tablet 650 mg PO Q8H PRN (Reason: Pain) RF: 0 teriparatide [Forteo] 20 mcg/dose (620mcg/2.48mL) pen injector 20 mcg SUBCUT PM RF: 0 glipizide [Glucotrol XL] 2.5 mg tablet extended release 24hr 2.5 mg PO PM RF: 0 phenazopyridine [Pyridium] 200 mg tablet 200 mg PO Q8H PRN (Reason: pain) Qty: 10 RF: 0 tamsulosin 0.4 mg capsule 0.4 mg PO HS Qty: 30 RF: 0 acetaminophen-codeine 300-15 mg tablet 1 tab PO Q8H PRN (Reason: pain) Qty: 10 RF: 0 Discontinued cephalexin 500 mg capsule 500 mg PO BID 7 Days Qty: 14 RF: 0 Discharge Orders: Discharge Order (Routine); Ordered 05/08/21 Ordered By: Arie Covarrubias Admission Data Admit Date/Time: 05/05/21 17:02 Attending Provider: Covarrubias,Rishikesh Admit Provider: Carol Garrett Primary Care Provider: Lo Chand Other Providers: Joshua Phillips ; Carol Garrett ; Jaime Lyons Other Interventions: Discharge Summary Assessment (RN) Last Done: 05/08/21 15:11
--- NOTE | 2021-05-19 10:20 | Coding Query ---
Your help is needed for correct coding of this account; please clarify if the patients Post-operative Ileus was: ( ) expected out of the surgery ( ) unexpected complication from the surgery ( )other please specify Thank you Lo MATA
--- NOTE | 2021-06-02 06:25 | Coding Query ---
Your help is needed for correct coding of this account; please clarify if the patients Post-operative Ileus was: ( x ) expected out of the surgery ( ) unexpected complication from the surgery ( )other please specify Thank you Lo MATA
== END 2021-05-08 18:22 | disposition home health service (06) | DRG 698 ==
LOC: ED 14:42 → SUATTDRO 17:02 → 2S 17:02
DX: J44.9 Chronic obstructive pulmonary disease, unspecified; Z88.6 Allergy status to analgesic agent; Z99.81 Dependence on supplemental oxygen; N99.89 Other postprocedural complications and disorders of genitourinary system; J96.11 Chronic respiratory failure with hypoxia; F31.9 Bipolar disorder, unspecified; A41.9 Sepsis, unspecified organism; N39.0 Urinary tract infection, site not specified; Z68.42 Body mass index [BMI] 45.0-49.9, adult; E66.01 Morbid (severe) obesity due to excess calories; Z88.5 Allergy status to narcotic agent; Z79.01 Long term (current) use of anticoagulants; I12.9 Hypertensive chronic kidney disease with stage 1 through stage 4 chronic kidney disease, or unspecified chronic kidney disease; Z85.038 Personal history of other malignant neoplasm of large intestine; K21.9 Gastro-esophageal reflux disease without esophagitis; E11.9 Type 2 diabetes mellitus without complications; R19.7 Diarrhea, unspecified; G47.33 Obstructive sleep apnea (adult) (pediatric); Z86.16 Personal history of COVID-19; T83.511A Infection and inflammatory reaction due to indwelling urethral catheter, initial encounter; N18.30 Chronic kidney disease, stage 3 unspecified

== ENCOUNTER 2021-10-11 13:47 | Inpatient (IN) ==
--- NOTE | 2021-10-11 16:46 | CT Scan Report ---
CT SCAN OF THE ABDOMEN AND PELVIS WITHOUT IV CONTRAST CLINICAL HISTORY: Right lower quadrant abdominal pain. COMPARISON STUDY: Abdominal CT dated 05/05/2021. TECHNIQUE: CT scan of the abdomen and pelvis is performed from the lung bases to the proximal femora. Images are reviewed in the axial, sagittal, and coronal planes. IV contrast was not administered for this examination. A dose lowering technique was utilized adhering to the principles of ALARA. CT DOSE: 817.21 mGy.cm FINDINGS: Lung bases: The heart is normal in size and without pericardial effusion. Costophrenic granulomas are present at the lung bases. The lung bases are otherwise clear. There is a moderate hiatal hernia. Liver: The unenhanced liver is top normal in size and demonstrates diffusely diminished attenuation c onsistent with hepatic steatosis. There is no intrahepatic biliary ductal dilatation. Gallbladder: Surgically absent noting clips in the gallbladder fossa. Spleen: Normal in size and attenuation. Pancreas: The unenhanced pancreas is moderately atrophic and grossly unremarkable. Adrenal glands: Unremarkable. Kidneys: There is asymmetric cortical atrophy of the left kidney as compared to the right. Foci of co rtical scarring are noted throughout the left kidney. There is a 5 mm obstructing calculus in the dis thien left ureter just above the vesicoureteral junction seen on image #342. There is mild left hydrone phrosis. There is urothelial thickening within the left renal pelvis with surrounding inflammation. T here are least 4 additional nonobstructing left renal calculi which measure up to 8 mm. There is a 4 mm nonobstructing right renal calculus. There is fullness of the right renal collecting system withou t hydronephrosis. Bilateral renal cysts measure up to 6.5 cm. Abdominal vasculature: The abdominal aorta is normal in course and caliber noting mild to moderate at herosclerotic calcification. Bowel: There is postoperative change from subtotal colectomy with ileosigmoid anastomosis. No bowel o bstruction is seen. A supraumbilical hernia on image #173 and a ventral hernia in the pelvis on image #330 contain nonobstructed small bowel loops. Peritoneum: There is no intraperitoneal free air or abdominal ascites. Lymphadenopathy: None. Pelvic viscera: The bladder is decompressed. There is pericholecystic inflammation. The uterus is perlita gically absent. No adnexal lesion is seen. Skeletal structures: The skeletal structures are osteopenic. Mild lumbosacral spondylosis is observed . No lytic or blastic lesions are seen. There are healed left-sided rib fractures. IMPRESSION: 1. There is a 5 mm obstructing calculus just above the left vesicoureteral junction. This causes mini mal left hydroureteronephrosis. 2. Additional bilateral nonobstructing renal calculi as above. 3. The bladder is decompressed and there is significant pericystic inflammation. There is also urothe lial thickening with surrounding inflammation involving the left renal pelvis. Correlate with clinica l findings and urinalysis for evidence of cystitis/ascending infection. 4. Hepatic steatosis. 5. Ventral abdominal hernias contain nonobstructed segments of small bowel. 6. Moderate hiatal hernia. 7. Additional findings as above. ACT 112: Negative or not required by law. Electronically signed by: Caesar Yoon M.D. 10/11/2021 4:45 PM
[2021-10-11] MEDS ORDERED: SODIUM CHLORIDE 0.9% 1000ML 2,000 ML IV ONE (16:47)
[2021-10-11] MEDS ORDERED: cefTRIAXone SODIUM 1,000 MG/50 ML BAG IV STA (16:52)
--- NOTE | 2021-10-11 17:10 | Emergency Department Note ---
Impression & Plan Sepsis, Complicated urinary tract infection, Renal colic, Kidney stone ED Provider Note NAME: NAYELI GUERRERO AGE: 65 SEX: F : 1955 ARRIVES VIA: Ambulance INFORMANT: Patient ED PROVIDER(S): Edy Bone DO CHIEF COMPLAINT: Abdominal pain HPI: Patient is a 65-year-old female who presents the ER for abdominal pain. Abdominal pain started about 3 to 4 days ago. Its associated with diffuse chills along with nausea and vomiting. She has been having fevers. Belly pain is worse on the left side. Patient denies any headache or change in vision. No other exacerbating or remitting factors. Fevers at home have been as high as 102. She has been trouble keeping anything down. She does have persistent shaking. ROS: See above HPI for pertinent positives & negatives. A total of 10 systems reviewed and were otherwise negative. PAST MEDICAL HISTORY:See Below PAST SURGICAL HISTORY:See Below FAMILY HISTORY:See Below SOCIAL HISTORY:See Below HOME MEDICATIONS:See Below ALLERGIES:See Below VITALS:See Below PHYSICAL EXAMINATION: GENERAL: Sitting up in bed, alert, ill-appearing, shaking EYE EXAM: normal conjunctiva. OROPHARYNX: no exudate, no erythema, lips, buccal mucosa, and tongue normal and mucous membranes are moist NECK: supple, no nuchal rigidity, no adenopathy, non-tender LUNGS: Clear to auscultation. Normal chest wall mechanics HEART: Tachycardic, S1 normal and S2 normal ABDOMEN: abdomen soft, non-tender, normo-active bowel sounds, no masses, no rebound or guarding. UPPER EXTREMITIES: upper extremities are grossly normal. LOWER EXTREMITIES: No pitting edema. NEURO EXAM: Normal sensorium, cranial nerves II-XII grossly intact, normal speech, no gross weakness of arms, no gross weakness of legs. MEDICAL DECISION MAKING: Patient is a 65-year-old female who presents the ER for abdominal pain and back pain. IV was established blood was obtained. She was found to be febrile today at 33 and tachycardic at 130. Labs show no significant leukocytosis and mild anemia. BMP was unremarkable as well as LFTs and bilirubin. Troponin was negative. UA does suggest UTI with whites and leuks although was contaminated with epithelial cells. CT abdomen pelvis shows inflammation of the bladder as well as a 5 mm obstructing renal stone. Patient was given IV Rocephin and IV fluids x2 L. She was updated bedside. I discussed with Dr. Doc Buenrostro from urology in regards to infected stone with a septic patient. They will evaluate. Discussed with hospitalist Radha pham for admission Triage Nursing notes reviewed. Limited review of prior medical records performed Vital Signs: reviewed and remarkable for febrile and tachycardic Differential diagnosis: Differential diagnoses includes but is not limited to gastritis, peptic ulcer disease, GERD, gallbladder disease, pancreatitis, small bowel obstruction, acute coronary syndrome, pericarditis, ischemic bowel, irritable bowel disease, irritable bowel syndrome, appendicitis, diverticulitis, malignancy, hernia, urinary tract infection, torsion, /ectopic (if female), perfo ration, trauma, infectious. ER treatment provided: See below Diagnostics interpreted by me: ECG: none Cardiac Monitoring: An order was placed for continuous cardiac monitoring. The monitor shows a rate of 131 with sinus rhythm. Laboratory studies: As stated above and show below. Imaging studies: CT abdomen pelvis shows obstructing stone Consultation(s): Discussed with urology and the hospitalist as stated above Procedures: none Critical Care: None Past Med/Surg History Medical History Acute UTI (urinary tract infection) has presently per pt Anxiety Asthma well controlled per pt, rare inh use CHF (congestive heart failure) follows with Dr. Singh Chronic back pain Chronic headaches Chronic renal insufficiency stage 3, following with [facility] nephrology ([place]) Chronic respiratory failure with hypoxia Was on home oxygen in the past but no longer using at this time CKD (chronic kidney disease) COPD (chronic obstructive pulmonary disease) Deep vein thrombosis LLE - COULD NOT RECALL DATE - REPORTS SHE WAS TREATED AT [facility] W/ BLOOD THINNERS Depression Diabetes mellitus, type 2 GERD (gastroesophageal reflux disease) History of colon cancer 2012 S/P BOWEL RESECTION. History of COVID-27 Sep 2020 HTN (hypertension) Hyperlipidemia Mood disorder Morbid obesity with BMI of 40.0-44.9, adult Myocardial Infarction 06/2016--> [facility] -- CARDIAC CATH --> normal coronary anatomy without coronary obstruction but Plavix started per [facility] discharge summary On anticoagulant therapy plavix daily CALI (obstructive sleep apnea) Poor historian Seizure Pt states "i think i had them a long time ago". no other information. No hx of seizures noted in records Sinus tachycardia Follows with cardio Surgical History H/O hand surgery RIGHT History of appendectomy History of bilateral cataract extraction History of blepharoplasty History of cardiac cath 03/2018 - [place] - DENIES STENTS/ANGIOPLASTY - [facility] - FOLLOWS W/ DR. SINGH History of closure of ileostomy History of colectomy due to colon cancer History of colonoscopy History of cystoscopy History of esophageal dilatation History of esophagogastroduodenoscopy (EGD) History of hysterectomy History of kidney surgery at age 9 yrs "something was wrong and had to fix it" History of lithotripsy History of tooth extraction History of total abdominal hysterectomy and bilateral salpingo-oophorectomy Hx of cholecystectomy Family History Other Breast cancer Social History Smoking Status: Never smoker Second Hand Exposure: Yes (in past); Hx Alcohol Use: No Hx Substance Use: No Preferred Language: Citizen Of [place] Communication Ability: Effective Radiology Specialist Required: No Beliefs That Will Affect Care: Jainism marital status: Current Living Situation: Spouse Current Living Situation Comment: Lives with ; home health aide Feels Safe at Home: Yes Assistive Devices: Oxygen - Continuous Allergies Allergies Allergy/AdvReac Type Severity Reaction Status Date / Time salicylates Allergy Severe SHORTNESS Verified 10/11/21 19:18 OF BREATH Iodinated Contrast Media Allergy Intermediate EYES Verified 10/11/21 19:18 SWELLING/Hives amoxicillin [From Augmentin] Allergy Mild Rash Verified 10/11/21 19:18 aspirin Allergy Mild FACIAL Verified 10/11/21 19:18 SWELLING clavulanic acid Allergy Mild Rash Verified 10/11/21 19:18 [From Augmentin] hydromorphone Allergy Mild RASH/ITCHIN Verified 10/11/21 19:18 G fentanyl Allergy itching/felt Verified 10/11/21 19:18 like throat closing meperidine AdvReac Intermediate ITCH Verified 10/11/21 19:18 morphine AdvReac Intermediate ITCH Verified 10/11/21 19:18 tramadol AdvReac Mild itch Verified 10/11/21 19:18 Home Meds Home Medications Medication Instructions Recorded Confirmed atorvastatin 40 mg tablet (Lipitor) 40 mg PO QPM 07/12/18 10/11/21 clopidogrel 75 mg tablet (Plavix) 75 mg PO QPM 07/12/18 10/11/21 pantoprazole 40 mg tablet,delayed 40 mg PO BID 07/12/18 10/11/21 release (Protonix) riboflavin (vitamin B2) 400 mg 400 mg PO QPM 07/12/18 10/11/21 tablet cholecalciferol (vitamin D3) 50 2,000 unit PO QAM 05/16/19 10/11/21 mcg (2,000 unit) capsule (Vitamin D3) albuterol sulfate 90 mcg/actuation 2 puff INHALATION Q4H PRN 07/21/19 10/11/21 aerosol inhaler magnesium oxide 400 mg PO HS 10/05/19 10/11/21 fluticasone fur. 100 mcg-umeclid 1 inh INHALATION DAILY PRN 12/11/20 10/11/21 62.5 mcg-vilant 25 mcg inhalat.powder (Trelegy Ellipta) metoprolol succinate 25 mg 25 mg PO PM tab 12/11/20 10/11/21 tablet,extended release 24 hr metoprolol succinate 50 mg 50 mg PO QAM 12/11/20 10/11/21 tablet,extended release 24 hr glipizide 2.5 mg tablet, extended 2.5 mg PO PM 04/29/21 10/11/21 release 24 hr (Glucotrol XL) doxepin 50 mg capsule 50 mg PO HS 09/14/21 10/11/21 acetaminophen 500 mg tablet 1,000 mg PO AMHS 10/11/21 10/11/21 (Tylenol Extra Strength) duloxetine 60 mg capsule,delayed 60 mg PO DAILY 10/11/21 10/11/21 release oxcarbazepine 300 mg tablet 300 mg PO BID 10/11/21 10/11/21 Previous Rx's Medication Instructions Recorded ondansetron 4 mg disintegrating 4 mg PO Q8H PRN #10 tab 06/02/21 tablet Results & Data (ED) Vital Signs Vital Signs - 24 hr 10/11/21 14:20 10/11/21 16:48 10/11/21 17:31 Temperature 36.5 C Temperature Source Temporal Artery Scan Pulse Rate 114 H Pulse Rate [Right Finger] 116 H Pulse Rhythm [Right Finger] Regular Pulse Strength [Right Finger] Normal Respiratory Rate 20 20 Respiratory Effort / Characteristics Non-Labored Non-Labored Respiratory Depth Normal Normal Respiratory Pattern Regular Blood Pressure 114/85 Blood Pressure [Right Arm] 139/87 Blood Pressure Mean 94 Blood Pressure Mean [Right Arm] 104 Blood Pressure Position [Right Arm] Lying Pulse Oximetry 96 98 92 Oxygen Delivery Method Room Air Nasal Cannula Room Air Oxygen Flow Rate 2 Sepsis Recent Fever Within 48 Hours No Sepsis New/Unexplained Change in Mental Status N/A Sepsis Action Taken by Nursing No Action Required 10/11/21 19:09 Temperature Temperature Source Pulse Rate 117 H Pulse Rate [Right Finger] 116 H Pulse Rhythm [Right Finger] Pulse Strength [Right Finger] Respiratory Rate 24 Respiratory Effort / Characteristics Respiratory Depth Respiratory Pattern Blood Pressure Blood Pressure [Right Arm] 130/103 H Blood Pressure Mean Blood Pressure Mean [Right Arm] 112 Blood Pressure Position [Right Arm] Pulse Oximetry 96 Oxygen Delivery Method Room Air Oxygen Flow Rate Sepsis Recent Fever Within 48 Hours Sepsis New/Unexplained Change in Mental Status Sepsis Action Taken by Nursing Laboratory Data Result diagrams: 10/11/21 17:25 10/11/21 17:25 Lab Results 10/11/21 10/11/21 10/11/21 Range/Units 17:25 17:25 17:25 WBC 9.07 (4.8-10.8) K/uL RBC 3.84 L (4.2-5.4) M/uL Hgb 11.6 L (12.0-16.0) g/dL Hct 37.4 (37-47) % MCV 97.4 (80-100) fL MCH 30.2 (25-34) pg MCHC 31.0 L (32-36) g/dL RDW Std Deviation 51.8 H (36.4-46.3) fL RDW Coeff of Teresa 14.5 (11.5-14.5) % Plt Count 244 (130-400) K/uL MPV 9.9 (7.4-10.4) fL Immature Gran % (Auto) 0.3 % Neut % (Auto) 67.5 % Lymph % (Auto) 16.2 % [place] % (Auto) 12.8 % Eos % (Auto) 3.0 % Baso % (Auto) 0.2 % Neut # (Auto) 6.12 (1.4-6.5) K/uL Lymph # (Auto) 1.47 (1.2-3.4) K/uL [place] # (Auto) 1.16 H (0.11-0.59) K/uL Eos # (Auto) 0.27 (0-0.5) K/uL Baso # (Auto) 0.02 (0-0.2) K/uL Immature Gran # (Auto) 0.03 H (0.00-0.02) K/uL PT (9.0-12.0) Seconds INR (0.9-1.1) APTT (21.0-31.0) Seconds PTT Ratio Sodium 140 (136-145) mmol/L Potassium 3.8 (3.5-5.1) mmol/L Chloride 109 H (98-107) mmol/L Carbon Dioxide 22 (21-32) mmol/L Anion Gap 9.0 (3-11) BUN 14 (7-18) mg/dl Creatinine 2.01 H (0.6-1.2) mg/dl Est Cr Clr Drug Dosing 28.1 ml/min Est GFR ( Amer) 29.0 ml/min Est GFR (Non-Af Amer) 25.0 ml/min BUN/Creatinine Ratio 7.2 L (10-20) Glucose 151 H (70-99) mg/dl Lactate (0.4-2.0) mmol/L Calcium 9.3 (8.5-10.1) mg/dl Magnesium 1.8 (1.8-2.4) mg/dl Total Bilirubin 0.3 (0.2-1) mg/dl AST 14 L (15-37) U/L ALT 22 (12-78) Alkaline Phosphatase 127 H (45-117) U/L Troponin I < 0.015 (0-0.045) ng/ml Total Protein 7.4 (6.4-8.2) gm/dl Albumin 2.9 L (3.4-5.0) gm/dl Globulin 4.5 H (2.5-4.0) gm/dl Albumin/Globulin Ratio 0.6 L (0.9-2) Procalcitonin 0.55 H (0-0.5) ng/ml SARS-CoV-2, RNA, NAAT (NEGATIVE) 01/02/22 01/02/22 01/02/22 Range/Units 17:25 17:25 18:45 WBC (4.8-10.8) K/uL RBC (4.2-5.4) M/uL Hgb (12.0-16.0) g/dL Hct (37-47) % MCV (80-100) fL MCH (25-34) pg MCHC (32-36) g/dL RDW Std Deviation (36.4-46.3) fL RDW Coeff of Teresa (11.5-14.5) % Plt Count (130-400) K/uL MPV (7.4-10.4) fL Immature Gran % (Auto) % Neut % (Auto) % Lymph % (Auto) % [place] % (Auto) % Eos % (Auto) % Baso % (Auto) % Neut # (Auto) (1.4-6.5) K/uL Lymph # (Auto) (1.2-3.4) K/uL [place] # (Auto) (0.11-0.59) K/uL Eos # (Auto) (0-0.5) K/uL Baso # (Auto) (0-0.2) K/uL Immature Gran # (Auto) (0.00-0.02) K/uL PT 9.9 (9.0-12.0) Seconds INR 1.0 (0.9-1.1) APTT 26.5 (21.0-31.0) Seconds PTT Ratio 1.0 Sodium (136-145) mmol/L Potassium (3.5-5.1) mmol/L Chloride (98-107) mmol/L Carbon Dioxide (21-32) mmol/L Anion Gap (3-11) BUN (7-18) mg/dl Creatinine (0.6-1.2) mg/dl Est Cr Clr Drug Dosing ml/min Est GFR ( Amer) ml/min Est GFR (Non-Af Amer) ml/min BUN/Creatinine Ratio (10-20) Glucose (70-99) mg/dl Lactate 1.3 (0.4-2.0) mmol/L Calcium (8.5-10.1) mg/dl Magnesium (1.8-2.4) mg/dl Total Bilirubin (0.2-1) mg/dl AST (15-37) U/L ALT (12-78) Alkaline Phosphatase (45-117) U/L Troponin I (0-0.045) ng/ml Total Protein (6.4-8.2) gm/dl Albumin (3.4-5.0) gm/dl Globulin (2.5-4.0) gm/dl Albumin/Globulin Ratio (0.9-2) Procalcitonin (0-0.5) ng/ml SARS-CoV-2, RNA, NAAT NEGATIVE (NEGATIVE) Administered Medications Discontinued Medications Sodium Chloride (Nss 1000ml) 2,000 mls @ 999 mls/hr IV .Q2H1M ONE Stop: 10/11/21 18:47 Last Infusion: 10/11/21 18:40 Dose: 0 mls/hr Documented by: [id number] Admin: 10/11/21 17:30 Dose: 999 mls/hr Documented by: [id number] Ceftriaxone Sodium (Rocephin) 1,000 mg in 50 mls @ 100 mls/hr IV NOW STA Stop: 10/11/21 17:21 Last Infusion: 10/11/21 18:40 Dose: 0 mls/hr Documented by: [id number] Admin: 10/11/21 17:30 Dose: 100 mls/hr Documented by: [id number] Imaging Data Radiologist's Impression: Abdomen/Pelvis CT 10/11/21 14:24 CT SCAN OF THE ABDOMEN AND PELVIS WITHOUT IV CONTRAST CLINICAL HISTORY: Right lower quadrant abdominal pain. COMPARISON STUDY: Abdominal CT dated 05/05/2021. TECHNIQUE: CT scan of the abdomen and pelvis is performed from the lung bases to the proximal femora. Images are reviewed in the axial, sagittal, and coronal planes. IV contrast was not administered for this examination. A dose lowering technique was utilized adhering to the principles of ALARA. CT DOSE: 817.21 mGy.cm FINDINGS: Lung bases: The heart is normal in size and without pericardial effusion. Co stophrenic granulomas are present at the lung bases. The lung bases are otherwise clear. There is a moderate hiatal hernia. Liver: The unenhanced liver is top normal in size and demonstrates diffusely diminished attenuation consistent with hepatic steatosis. There is no int rahepatic biliary ductal dilatation. Gallbladder: Surgically absent noting clips in the gallbladder fossa. Spleen: Normal in size and attenuation. Pancreas: The unenhanced pancreas is moderately atrophic and grossly unrema rkable. Adrenal glands: Unremarkable. Kidneys: There is asymmetric cortical atrophy of the left kidney as compared to the right. Foci of cortical scarring are noted throughout the left kidney. There is a 5 mm obstructing calculus in the distal left ureter just above the vesicoureteral junction seen on image #342. There is mild left hydronephrosis. There is urothelial thickening within the left renal pelvis with surrounding inflammation. There are least 4 additional nonobstructing left renal calculi which measure up to 8 mm. There is a 4 mm nonobstructing right renal calculus. There is fullness of the right renal collecting system without hydronephrosis. Bilateral renal cysts measure up to 6.5 cm. Abdominal vasculature: The abdominal aorta is normal in course and caliber noting mild to moderate atherosclerotic calcification. Bowel: There is postoperative change from subtotal colectomy with ileosigmoid anastomosis. No bowel obstruction is seen. A supraumbilical hernia on image #173 and a ventral hernia in the pelvis on image #330 contain nonobstructed small bowel loops. Peritoneum: There is no intraperitoneal free air or abdominal ascites. Lymphadenopathy: None. Pelvic viscera: The bladder is decompressed. There is pericholecystic inflammation. The uterus is surgically absent. No adnexal lesion is seen. Skeletal structures: The skeletal structures are osteopenic. Mild lumbosacral spondylosis is observed. No lytic or blastic lesions are seen. There are healed left-sided rib fractures. IMPRESSION: 1. There is a 5 mm obstructing calculus just above the left vesicoureteral junction. This causes minimal left hydroureteronephrosis. 2. Additional bilateral nonobstructing renal calculi as above. 3. The bladder is decompressed and there is significant pericystic inflammation. There is also urothelial thickening with surrounding inflammation involving the left renal pelvis. Correlate with clinical findings and urinalysis for evidence of cystitis/ascending infection. 4. Hepatic steatosis. 5. Ventral abdominal hernias contain nonobstructed segments of small bowel. 6. Moderate hiatal hernia. 7. Additional findings as above. ACT 112: Negative or not required by law. Electronically signed by: Caesar Yoon M.D. 10/11/2021 4:45 PM Chest X-Ray 10/11/21 16:48 SINGLE VIEW CHEST CLINICAL HISTORY: Sepsis. FINDINGS: An AP, portable, upright chest radiograph is compared to study dated 09/14/2021. The examination is degraded by portable technique and apical lordotic positioning. The cardiomediastinal silhouette is unremarkable. Chronic interstitial thickening is similar to previous. Mild atelectasis is noted at the lung bases. The lungs and pleural spaces are otherwise clear. No pneumothorax is seen. The skeletal structures are osteopenic. The bony thorax is grossly intact. IMPRESSION: No active disease in the chest. ACT 112: Negative or not required by law. Electronically signed by: Caesar Yoon M.D. 10/11/2021 5:58 PM Discharge Plan Visit Data Chief Complaint: Abdominal Pain ED Provider: Edy Bone Discharge Problem: Sepsis, Complicated urinary tract infection, Renal colic, Kidney stone Discharge Problem: Sepsis Qualifiers: Sepsis type: sepsis due to unspecified organism Sepsis acute organ dysfunction status: unspecified Qualified Code(s): A41.9 - Sepsis, unspecified organism
[2021-10-11 17:35] LABS: Basophils # (auto) 0.02 K/uL (0-0.2); Basophils % (auto) 0.2 %; Eosinophils # (auto) 0.27 K/uL (0-0.5); Hematocrit (blood only) 37.4 % (37-47); Hemoglobin 11.6 g/dL (12.0-16.0); Immature Granulocytes # (auto) 0.03 K/uL (0.00-0.02); Immature Granulocytes % (auto) 0.3 %; Lymphocytes # (auto) 1.47 K/uL (1.2-3.4); Lymphocytes % (auto) 16.2 %; Mean Corpuscular Hemoglobin 30.2 pg (25-34); Mean Corpuscular Volume 97.4 fL (80-100); Mean Platelet Volume 9.9 fL (7.4-10.4); Monocytes # (auto) 1.16 K/uL (0.11-0.59); Monocytes % (auto) 12.8 %; Neutrophils # (auto) 6.12 K/uL (1.4-6.5); Neutrophils % (auto) 67.5 %; Platelet Count 244 K/uL (130-400); RDW Coefficient of Variation 14.5 % (11.5-14.5); RDW Standard Deviation 51.8 fL (36.4-46.3); Red Blood Count 3.84 M/uL (4.2-5.4); White Blood Count 9.07 K/uL (4.8-10.8)
[2021-10-11 17:48] LABS: Partial Thromboplastin Time 26.5 Seconds (21.0-31.0); Prothrombin Time 9.9 Seconds (9.0-12.0)
[2021-10-11 17:53] LABS: Alanine Aminotransferase 22 (12-78); Albumin Level 2.9 gm/dl (3.4-5.0); Aspartate Aminotransferase 14 U/L (15-37); BUN Creatinine Ratio 7.2 (10-20); Blood Urea Nitrogen 14 mg/dl (7-18); Calcium 9.3 mg/dl (8.5-10.1); Carbon Dioxide 22 mmol/L (21-32); Chloride 109 mmol/L (98-107); Creatinine Clr Calc Pharmacy 28.1 ml/min; Glucose 151 mg/dl (70-99); Magnesium 1.8 mg/dl (1.8-2.4); Potassium 3.8 mmol/L (3.5-5.1); Sodium 140 mmol/L (136-145)
[2021-10-11 17:58] LABS: Albumin Globulin Ratio 0.6 (0.9-2); Alkaline Phosphatase 127 U/L (45-117); Bilirubin,Total 0.3 mg/dl (0.2-1); Globulin 4.5 gm/dl (2.5-4.0); Total Protein 7.4 gm/dl (6.4-8.2); Troponin I < 0.015 ng/ml (0-0.045)
--- NOTE | 2021-10-11 17:59 | XRay Report ---
SINGLE VIEW CHEST CLINICAL HISTORY: Sepsis. FINDINGS: An AP, portable, upright chest radiograph is compared to study dated 09/14/2021. The examina tion is degraded by portable technique and apical lordotic positioning. The cardiomediastinal silhoue tte is unremarkable. Chronic interstitial thickening is similar to previous. Mild atelectasis is note d at the lung bases. The lungs and pleural spaces are otherwise clear. No pneumothorax is seen. The s keletal structures are osteopenic. The bony thorax is grossly intact. IMPRESSION: No active disease in the chest. ACT 112: Negative or not required by law. Electronically signed by: Caesar Yoon M.D. 10/11/2021 5:58 PM
--- NOTE | 2021-10-11 19:11 | History & Physical Report ---
Date of Service October 11, 2021 Assessment & Plan (1) Obstructive pyelonephritis: Plan: #. Possibly obstructive pyelonephritis Patient presents with fever/weakness/belly pain/decreased appetite since last 3 days with home temperature measurement as high as 103.2F Admitting CXR: No active disease Admitting CTAP: 5 mm obstructing calculus above left PSA with minimal left hydroutero nephrosis. Adacel B/L nonobstructing renal calculi. Suggestive of pericystic inflammation with surrounding inflammation involving the left renal pelvis. Hence concerns for cystitis/ascending infection. Admitting vitals: Afebrile, WBC of 9.07K, heart rate of 117, respiratory rate of 20. Lactate of 1.3. Procalcitonin of 0.55. Covid negative. Troponin negative Does not meet the criteria for sepsis Given recurrent renal stone, bilateral CVA angle tenderness, history of recurrent pansensitive E. coli UTI, mention of fever measured at home---> likely obstructive pyelonephritis based on imaging and clinical findings----> patient is started on Rocephin 10/11/21 in the ED, will continue with that. Pain control, nausea control. Urology consulted, communicated by ED physician, is aware of patient's condition. Urology Lambert texted after examining patient at bedside, awaiting response and further recommendation. Follow-up urinalysis and urine culture. #. Mild dehydration Patient has not been able to eat/drink since last 3 days, not even her medications Admitting creatinine of 2.01, baseline past records her creatinine hovers around 1.5-2.0 Oral mucosa dry Patient n.p.o., will continue her on IV fluids for now Monitor BMP daily #. Other chronic medical conditions: Mood disorder, chronic respiratory failure with hypoxia, CHF, DM type II, COPD Resume home meds when able, currently patient not tolerating p.o. intake, will hold oral medications, patient on IV metoprolol for now Hold DM oral meds, patient on sliding scale insulin. Heparin for DVT prophylaxis Full code, withdraw care if deemed to be vegetative No POA per patient History of Present Illness Chief Complaint: Feeling sick, dizziness, stomach and back pain Primary Care Provider: Lo Chand, DO 65yo F with a PMH of DM II, COPD, CKD III, HTN, bipolar disorder, chronic respiratory failure on home O2 (2L), laparoscopic colectomy total w/o proctectomy w/ ileostomy and ileoproctostomy in 2010 for colon Ca presented 10/11/21 w/ fever, chills, and abdominal pain. Last confinement in April 2021 for sepsis likely secondary to then recent urologic intervention [left ureteral stent]. Per patient, she has been feeling sick and unable to eat and drink, nausea and vomiting since last 3 days. She has not been able to take her medication since last 3 days. Other associated symptoms or dizziness, ringing in years x left, fever of 103.2F 3 days prior and more than 101F on other 2 occasions leading up to admissions. Patient denies any chest pain or palpitation. Patient does report belly pain all over and back pain. Patient has recently [4 to 5 months ago] undergone laser destruction of the left ureteral stone and left ureteral stent placement which is removed around 3 months ago per patient. ROS negative unless mentioned otherwise. Patient does not smoke, drink alcohol, use illegal drugs. Family history positive for breast cancer in mother and colon cancer in father. Sister had 3 VT. Full code, if deemed vegetative withdraw care per patient. No POA per patient. Allergies Allergy/AdvReac Type Severity Reaction Status Date / Time salicylates Allergy Severe SHORTNESS Verified 10/11/21 19:18 OF BREATH Iodinated Contrast Media Allergy Intermediate EYES Verified 10/11/21 19:18 SWELLING/Hives amoxicillin [From Augmentin] Allergy Mild Rash Verified 10/11/21 19:18 aspirin Allergy Mild FACIAL Verified 10/11/21 19:18 SWELLING clavulanic acid Allergy Mild Rash Verified 10/11/21 19:18 [From Augmentin] hydromorphone Allergy Mild RASH/ITCHIN Verified 10/11/21 19:18 G fentanyl Allergy itching/felt Verified 10/11/21 19:18 like throat closing meperidine AdvReac Intermediate ITCH Verified 10/11/21 19:18 morphine AdvReac Intermediate ITCH Verified 10/11/21 19:18 tramadol AdvReac Mild itch Verified 10/11/21 19:18 Home Medications Medication Instructions Recorded Confirmed Type atorvastatin 40 mg tablet (Lipitor) 40 mg PO QPM 07/12/18 09/14/21 History clopidogrel 75 mg tablet (Plavix) 75 mg PO QPM 07/12/18 09/14/21 History pantoprazole 40 mg tablet,delayed 40 mg PO BID 07/12/18 09/14/21 History release (Protonix) riboflavin (vitamin B2) 400 mg 400 mg PO QPM 07/12/18 09/14/21 History tablet cholecalciferol (vitamin D3) 50 2,000 unit PO QAM 05/16/19 09/14/21 History mcg (2,000 unit) capsule (Vitamin D3) albuterol sulfate 90 mcg/actuation 2 puff INHALATION Q4H PRN 07/21/19 09/14/21 H istory aerosol inhaler magnesium oxide 400 mg PO HS 10/05/19 09/14/21 History fluticasone fur. 100 mcg-umeclid 1 inh INHALATION DAILY PRN 12/11/20 09/14/21 History 62.5 mcg-vilant 25 mcg inhalat.powder (Trelegy Ellipta) metoprolol succinate 25 mg 25 mg PO PM tab 12/11/20 09/14/21 History tablet,extended release 24 hr metoprolol succinate 50 mg 50 mg PO QAM 12/11/20 09/14/21 History tablet,extended release 24 hr glipizide 2.5 mg tablet, extended 2.5 mg PO PM 04/29/21 09/14/21 History release 24 hr (Glucotrol XL) ondansetron 4 mg disintegrating 4 mg PO Q8H PRN #10 tab 06/02/21 09/14/21 Rx tablet doxepin 50 mg capsule 50 mg PO HS 09/14/21 09/14/21 History acetaminophen 500 mg tablet 1,000 mg PO AMHS 10/11/21 10/11/21 History (Tylenol Extra Strength) duloxetine 60 mg capsule,delayed 60 mg PO DAILY 10/11/21 10/11/21 History release oxcarbazepine 300 mg tablet 300 mg PO BID 10/11/21 10/11/21 History Past Med/Surg History Medical History Acute UTI (urinary tract infection) has presently per pt Anxiety Asthma well controlled per pt, rare inh use CHF (congestive heart failure) follows with Dr. Singh Chronic back pain Chronic headaches Chronic renal insufficiency stage 3, following with [facility] nephrology ([place]) Chronic respiratory failure with hypoxia Was on home oxygen in the past but no longer using at this time CKD (chronic kidney disease) COPD (chronic obstructive pulmonary disease) Deep vein thrombosis LLE - COULD NOT RECALL DATE - REPORTS SHE WAS TREATED AT [facility] W/ BLOOD THINNERS Depression Diabetes mellitus, type 2 GERD (gastroesophageal reflux disease) History of colon cancer 2012 S/P BOWEL RESECTION. History of COVID-27 Sep 2020 HTN (hypertension) Hyperlipidemia Mood disorder Morbid obesity with BMI of 40.0-44.9, adult Myocardial Infarction 06/2016--> [facility] -- CARDIAC CATH --> normal coronary anatomy without coronary obstruction but Plavix started per [facility] discharge summary On anticoagulant therapy plavix daily CALI (obstructive sleep apnea) Poor historian Seizure Pt states "i think i had them a long time ago". no other information. No hx of seizures noted in records Sinus tachycardia Follows with cardio Surgical History H/O hand surgery RIGHT History of appendectomy History of bilateral cataract extraction History of blepharoplasty History of cardiac cath 03/2018 - [place] - DENIES STENTS/ANGIOPLASTY - [facility] - FOLLOWS W/ DR. SINGH History of closure of ileostomy History of colectomy due to colon cancer History of colonoscopy History of cystoscopy History of esophageal dilatation History of esophagogastroduodenoscopy (EGD) History of hysterectomy History of kidney surgery at age 9 yrs "something was wrong and had to fix it" History of lithotripsy History of tooth extraction History of total abdominal hysterectomy and bilateral salpingo-oophorectomy Hx of cholecystectomy Family History Other Breast cancer Social History Smoking Status: Never smoker Second Hand Exposure: Yes (in past); Hx Alcohol Use: No Hx Substance Use: No Preferred Language: Upper Sorbian Communication Ability: Effective Automation Technician Required: No Beliefs That Will Affect Care: Yazidism marital status: Current Living Situation: Spouse Current Living Situation Comment: Lives with ; home health aide Feels Safe at Home: Yes Assistive Devices: Oxygen - Continuous Physical Exam Physical Exam: GENERAL: Alert and oriented x3. NAD, on RA. Shaking [patient reports tremors of all extremities at baseline, difficult to distinguish it from shaking from fever] HEENT: No pallor, no icterus. Pupils equal, round and reactive to light. Oral mucosa moist. NECK: No JVD, no neck masses. HEART: S1 and S2 heard. Regular rate and rhythm. No murmur, no gallop. RESPIRATORY SYSTEM: Normal AP diameter. No accessory muscle use. No wheezing, no crackles. ABDOMEN: Soft, bowel sounds present, diffusely tender more so on the right flank with rebound tenderness positive on the right side. Bilateral CVA angle tenderness CENTRAL NERVOUS SYSTEM: No facial droop. Speech is clear. Obeys simple commands. Moves extremities. EXTREMITIES: Trace BLE edema, no erythema seen. Results & Data Results & Data ([facility]) Vital Signs (Past 12 Hours) Vital Signs Temp Pulse Pulse Resp BP BP Pulse Ox 10/11/21 17:31 92 10/11/21 16:48 116 H 20 139/87 98 10/11/21 14:20 36.5 C 114 H 20 114/85 96
[2021-10-11] MEDS ORDERED: GLUCOSE 10 TABS/TUBE PO PRN (19:31)
[2021-10-11] MEDS ORDERED: CARBOHYDRATES FOR HYPOGLYCEMIA PO PRN (19:31)
[2021-10-11] MEDS ORDERED: DEXTROSE 50% 50 ML SYRINGE IV PRN (19:31)
[2021-10-11] MEDS ORDERED: GLUCOSE 40% GEL 15 GM TUBE PO PRN (19:31)
[2021-10-11] MEDS ORDERED: GLUCAGON FOR INJ 1 MG VIAL SQ PRN (19:31)
[2021-10-11] MEDS ORDERED: MoRPHine SULFATE 2 MG/ML CARP IV STA (19:36)
[2021-10-11 20:07] LABS: Appearance Urine Turbid (Clear); Bacteria Urine Automated Negative (Negative); Bilirubin Urine Negative (Negative); Blood Urine 2+ (Negative); Color Urine Yellow; Epithelial Cell Urine Auto >30 /lpf (0-5); Glucose Urine UA Negative (Negative); Ketones Urine Negative (Negative); Leukocyte Esterase Urine 3+ (Negative); Nitrite Urine Negative (Negative); Protein Urine 2+ (Negative); Specific Gravity Urine 1.013 (1.000-1.030); Urobilinogen Urine Negative (Negative); WBC Urine Automated >30 /hpf (0-5); pH Urine 5.5 (4.5-7.5)
--- NOTE | 2021-10-11 21:11 | Urology Consultation ---
Date of Consultation October 11, 2021 Assessment & Plan (1) Obstructive pyelonephritis: -IV fluids -Broad spectrum abx -Monitor vitals -Trend labs (2) Ureteral calculus: -5mm left distal stone -Hydronephrosis -Continue to push IV fluids -Fever has normalized -BP stable -If unable to pass the stone by Tuesday morning, will plan for cysto/stent History of Present Illness Reason for Consultation: Ureteral Calculus, UTI History of Present Illness 65 y/o Female with a complex past medical hx as noted in the H&P. Prestented to the ED with a several day hx of nausea, vomiting, poor appetite, flank pain, and fever. She has a hx of kidney stones. Most recently in April 2021, she was admitted with left sided ureteral stones and underwent Uscope with stent which was complicated by post operative urosepsis. Upon arrival to the ED, a CT scan was performed. Results as follows: CT Scan: There is asymmetric cortical atrophy of the left kidney as compared to the right. Foci of cortical scarring are noted throughout the left kidney. There is a 5 mm obstructing calculus in the distal left ureter just above the ves icoureteral junction seen on image #342. There is mild left hydronephrosis. There is urothelial thickening within the left renal pelvis with surrounding inflammation. There are least 4 additional nonobstructing left renal calculi which measure up to 8 mm. There is a 4 mm nonobstructing right renal calculus. There is fullness of the right renal collecting system without hydronephrosis. Bilateral renal cysts measure up to 6.5 cm. She is voiding small amounts. She does report urge and freq. No hematuria. Occ dysuria. WBC: 9.07 Cr: 2.01 (Baseline 1 - 1.9) Allergies Allergy/AdvReac Type Severity Reaction Status Date / Time salicylates Allergy Severe SHORTNESS Verified 10/11/21 19:18 OF BREATH Iodinated Contrast Media Allergy Intermediate EYES Verified 10/11/21 19:18 SWELLING/Hives amoxicillin [From Augmentin] Allergy Mild Rash Verified 10/11/21 19:18 aspirin Allergy Mild FACIAL Verified 10/11/21 19:18 SWELLING clavulanic acid Allergy Mild Rash Verified 10/11/21 19:18 [From Augmentin] hydromorphone Allergy Mild RASH/ITCHIN Verified 10/11/21 19:18 G fentanyl Allergy itching/felt Verified 10/11/21 19:18 like throat closing meperidine AdvReac Intermediate ITCH Verified 10/11/21 19:18 morphine AdvReac Intermediate ITCH Verified 10/11/21 19:18 tramadol AdvReac Mild itch Verified 10/11/21 19:18 Home Medications Medication Instructions Recorded Confirmed Type atorvastatin 40 mg tablet (Lipitor) 40 mg PO QPM 07/12/18 10/11/21 History clopidogrel 75 mg tablet (Plavix) 75 mg PO QPM 07/12/18 10/11/21 History pantoprazole 40 mg tablet,delayed 40 mg PO BID 07/12/18 10/11/21 History release (Protonix) riboflavin (vitamin B2) 400 mg 400 mg PO QPM 07/12/18 10/11/21 History tablet cholecalciferol (vitamin D3) 50 2,000 unit PO QAM 05/16/19 10/11/21 History mcg (2,000 unit) capsule (Vitamin D3) albuterol sulfate 90 mcg/actuation 2 puff INHALATION Q4H PRN 07/21/19 10/11/21 History aerosol inhaler magnesium oxide 400 mg PO HS 10/05/19 10/11/21 History fluticasone fur. 100 mcg-umeclid 1 inh INHALATION DAILY PRN 12/11/20 10/11/21 History 62.5 mcg-vilant 25 mcg inhalat.powder (Trelegy Ellipta) metoprolol succinate 25 mg 25 mg PO PM tab 12/11/20 10/11/21 History tablet,extended release 24 hr metoprolol succinate 50 mg 50 mg PO QAM 12/11/20 10/11/21 History tablet,extended release 24 hr glipizide 2.5 mg tablet, extended 2.5 mg PO PM 04/29/21 10/11/21 History release 24 hr (Glucotrol XL) ondansetron 4 mg disintegrating 4 mg PO Q8H PRN #10 tab 06/02/21 10/11/21 Rx tablet doxepin 50 mg capsule 50 mg PO HS 09/14/21 10/11/21 History acetaminophen 500 mg tablet 1,000 mg PO AMHS 10/11/21 10/11/21 History (Tylenol Extra Strength) duloxetine 60 mg capsule,delayed 60 mg PO DAILY 10/11/21 10/11/21 History release oxcarbazepine 300 mg tablet 300 mg PO BID 10/11/21 10/11/21 History Patient History Medical History Acute UTI (urinary tract infection) has presently per pt Anxiety Asthma well controlled per pt, rare inh use CHF (congestive heart failure) follows with Dr. Singh Chronic back pain Chronic headaches Chronic renal insufficiency stage 3, following with [facility] nephrology ([place]) Chronic respiratory failure with hypoxia Was on home oxygen in the past but no longer using at this time CKD (chronic kidney disease) COPD (chronic obstructive pulmonary disease) Deep vein thrombosis LLE - COULD NOT RECALL DATE - REPORTS SHE WAS TREATED AT [facility] W/ BLOOD THINNERS Depression Diabetes mellitus, type 2 GERD (gastroesophageal reflux disease) History of colon cancer 2012 S/P BOWEL RESECTION. History of COVID-27 Sep 2020 HTN (hypertension) Hyperlipidemia Mood disorder Morbid obesity with BMI of 40.0-44.9, adult Myocardial Infarction 06/2016--> [facility] -- CARDIAC CATH --> normal coronary anatomy without coronary obstruction but Plavix started per [facility] discharge summary On anticoagulant therapy plavix daily CALI (obstructive sleep apnea) Poor historian Seizure Pt states "i think i had them a long time ago". no other information. No hx of seizures noted in records Sinus tachycardia Follows with cardio Surgical History H/O hand surgery RIGHT History of appendectomy History of bilateral cataract extraction History of blepharoplasty History of cardiac cath 03/2018 - [place] - DENIES STENTS/ANGIOPLASTY - [facility] - FOLLOWS W/ DR. SINGH History of closure of ileostomy History of colectomy due to colon cancer History of colonoscopy History of cystoscopy History of esophageal dilatation History of esophagogastroduodenoscopy (EGD) History of hysterectomy History of kidney surgery at age 9 yrs "something was wrong and had to fix it" History of lithotripsy History of tooth extraction History of total abdominal hysterectomy and bilateral salpingo-oophorectomy Hx of cholecystectomy Family History Other Breast cancer Social History Smoking Status: Never smoker Second Hand Exposure: Yes (in past); Hx Alcohol Use: No Hx Substance Use: No Preferred Language: Croatian Communication Ability: Effective Entertainer Or Variety Artist Required: No Beliefs That Will Affect Care: Baptism marital status: Current Living Situation: Spouse Current Living Situation Comment: Lives with ; home health aide Feels Safe at Home: Yes Assistive Devices: Oxygen - Continuous Review of Systems Review of Systems: All systems reviewed & are unremarkable except as noted in HPI & below Physical Exam Constitutional: WD/WN, vitals as above Respiratory: normal respiratory effort, lungs clear to auscultation Cardiovascular: Rate/Rhythm: + tachycardic Gastrointestinal (Abdomen): normal bowel sounds, soft, nontender, no hepatos plenomegaly Skin: no rashes, warm and dry Neurologic: patellar DTR's 2+ bilat, sensation intact Lymphatic: no cervical or axillary lymphadenopathy Results & Data ([facility]) Vital Signs (Past 12 Hours) Vital Signs Temp Pulse Pulse Resp BP BP Pulse Ox 10/11/21 19:09 117 H 116 H 24 130/103 H 96 10/11/21 17:31 92 10/11/21 16:48 116 H 20 139/87 98 10/11/21 14:20 36.5 C 114 H 20 114/85 96 PG Care Time/CCT Total # of Minutes Spent Total Time Spent with Patient: Total time spent is greater than 50% in coordination of care (as documented) at patient's floor/unit and/or counseling patient: 60 Coding Level of Care Code 38436 Inpt Consult Level 4 Diagnoses Obstructive pyelonephritis N11.1 Ureteral calculus N20.1
[2021-10-11] MEDS: METOPROLOL TARTRATE 1 MG/ML VIAL IV SCH (21:45)
[2021-10-11] MEDS: INSULIN ASPART PER UNIT SC SCH (23:15)
[2021-10-11] MEDS: INSULIN GLARGINE SOLOSTAR 100 UNITS/ML 3 ML PEN SC SCH (23:16)
[2021-10-11] MEDS: CLOPIDOGREL BISULFATE 75 MG TAB PO SCH (23:27)
[2021-10-11] MEDS: HEPARIN SOD 5,000 UNIT/0.5 ML VIAL SQ SCH (23:28)
[2021-10-11] MEDS: SODIUM CHLORIDE 0.9% 1000ML 1,000 ML IV SCH (23:34)
[2021-10-12] MEDS: ACETAMINOPHEN 325 MG TAB PO PRN ×2 (02:07→17:30)
[2021-10-12] MEDS: MoRPHine SULFATE 2 MG/ML CARP IV PRN ×5 (04:54→22:20)
[2021-10-12] MEDS: ONDANSETRON INJ 2 MG/ML 2 ML VIAL IV PRN ×2 (04:55→17:30)
[2021-10-12] MEDS: SODIUM CHLORIDE 0.9% 1000ML 1,000 ML IV SCH (06:15)
[2021-10-12] MEDS: HEPARIN SOD 5,000 UNIT/0.5 ML VIAL SQ SCH ×3 (06:16→22:21)
[2021-10-12 06:22] LABS: Hematocrit (blood only) 31.9 % (37-47); Hemoglobin 9.4 g/dL (12.0-16.0); Mean Corpuscular Hemoglobin 29.4 pg (25-34); Mean Corpuscular Hgb Conc 29.5 g/dL (32-36); Mean Corpuscular Volume 99.7 fL (80-100); Mean Platelet Volume 9.9 fL (7.4-10.4); Platelet Count 203 K/uL (130-400); RDW Coefficient of Variation 14.8 % (11.5-14.5); RDW Standard Deviation 53.9 fL (36.4-46.3); White Blood Count 6.51 K/uL (4.8-10.8)
[2021-10-12 07:15] LABS: BUN Creatinine Ratio 7.1 (10-20); Calcium 8.4 mg/dl (8.5-10.1); Creatinine Clr Calc Pharmacy 32.7 ml/min; Est GFR (African American) 34.8 ml/min; Phosphorus 3.9 mg/dl (2.5-4.9); Potassium 3.7 mmol/L (3.5-5.1)
[2021-10-12 07:31] LABS: Estimated Average Glucose 140 mg/dl; Hemoglobin A1C 6.5 % (4.5-5.6)
[2021-10-12] MEDS: INSULIN ASPART PER UNIT SC SCH ×4 (07:41→20:16)
[2021-10-12] MEDS: METOPROLOL TARTRATE 1 MG/ML VIAL IV SCH (07:41)
--- NOTE | 2021-10-12 08:43 | Urology Progress Note ---
Date of Service October 12, 2021 Assessment & Plan (1) Ureteral calculus: (2) Obstructive pyelonephritis: (3) Renal colic: Plan: 65 y/o female with a complex past medical hx admitted with possible obstructive pyelo/UTI in the setting of an obstructing 5mm left ureteral stone - Afebrile at present - TMAX 38.0 at 0200 - Labs reviewed - Wbc 6.51, Creatinine 1.73 (previously 2.01) - Urine and blood cultures pending - Continues on IV Ceftriaxone - Still with flank pain this morning, denies any stone passage overnight - Findings reviewed with Dr. Adam. - Given her presumed UTI/Pyelo, fever, and intractable pain in the context of an obstructing 5mm left ureteral stone, will proceed with OR for Cystoscopy, Left retrograde pyelogram and Left stent placement, possible ureteroscopy, laser litho, stone basketing depending on findings. Risks and benefits to be reviewed with patient by Dr. Adam. - OR notified. Preoperative CXR and EKG in chart. On IV Ceftriaxone. Covid test negative. - Keep NPO - Strain all urine - Continue supportive care, antibiotic therapy, and pain management - Will continue to follow Attending Note: Independently assessed, examined, interviewed, and consented. Agree with above. Patient intermittently having fever with therapy. Previous history of significant issues with obstructing stones. Here for supportive care. Continues to have issues especially related to fever and illness. Having pain bilaterally. significant discomfort in pelvis. Imaging reviewed and does appear to have notable inflammation of bladder. Risks and benefits discussed at length for procedure. These include bleeding, infection, injury to surrounding tissues or organs, and risks associated with anesthesia. Patient states understanding and agrees to proceed. Will sign consent and proceed. Plan for cystoscopy with left stent placement possible ureteroscopy and stone removal. Will likely need stent for 1 to 2 weeks with antibiotic therapy based on culture. Admission and Anticipated Discharge Date Admission Date: October 11, 2021 Subjective Pt examined at bedside this AM. Awake, resting in bed on arrival. Febrile overnight - Tmax 38.0C at 0200 Continues to have b/l flank pain. Denies any stone passage overnight. Reports she is voiding small amounts. She does report urge and freq. No hematuria, some dysuria. States she is moving her bowels. No nausea or vomiting this morning. Has been NPO. Review of Systems Constitutional: as per Subjective / HPI Gastrointestinal: as per Subjective / HPI Genitourinary: as per Subjective / HPI Physical Exam Constitutional: + obese; no acute distress Respiratory: normal respiratory effort and able to speak in complete sentences; no respiratory distress and no labored breathing Cardiovascular: Rate/Rhythm: + tachycardic Gastrointestinal (Abdomen): Inspection/Auscultation: abdomen normal to inspection Percussion/Palpation: + abdomen tender (Bilateral flank and lower quadrant tenderness with palpation) and abdomen soft; no guarding and abdomen not rigid Musculoskeletal: Head/Neck/Chest: normocephalic Skin: No visible rashes or lesions to exposed skin areas Neurologic: awake Psychiatric: Orientation: alert, oriented x 3 and cooperative Results & Data ([facility]) Vital Signs (Past 12 Hours) Vital Signs Temp Pulse Pulse Resp BP BP Pulse Ox 10/12/21 07:41 110 H 131/67 10/12/21 07:25 36.9 C 109 H 22 131/67 99 10/12/21 04:51 36.8 C 100 H 16 138/81 97 10/12/21 02:00 38 C H 107 H 22 139/84 94 10/11/21 23:23 115 H 22 119/75 93 10/11/21 21:43 129 H 24 154/118 H 95 PG Care Time/CCT Total # of Minutes Spent Total Time Spent with Patient: Total time spent is greater than 50% in coordination of care (as documented) at patient's floor/unit and/or counseling patient: Coding Level of Care Code 84054 Subseq Hosp Care Lvl 2 Diagnoses Ureteral calculus N20.1 Obstructive pyelonephritis N11.1 Renal colic N23
[2021-10-12] MEDS ORDERED: ACETAMINOPHEN 1000 MG/100 ML IV IV ONE (09:27)
[2021-10-12] MEDS ORDERED: MoRPHine SULFATE 2 MG/ML CARP ONE (09:32)
[2021-10-12] MEDS ORDERED: DIATRIZOATE MEGLUMINE 30% 100ML VIAL INSTIL PRN (09:32)
[2021-10-12] MEDS ORDERED: MIDAZOLAM HCL 1 MG/ML 2ML VIAL ONE (09:33)
[2021-10-12] MEDS: INSULIN GLARGINE SOLOSTAR 100 UNITS/ML 3 ML PEN SC SCH ×2 (09:44→20:16)
[2021-10-12] MEDS ORDERED: ePHEDrine sulfate 50 MG/ML AMP IV PRN (10:16)
[2021-10-12] MEDS ORDERED: LABETALOL HCL IV 5 MG/ML 20ML IV PRN (10:16)
[2021-10-12] MEDS ORDERED: PHENYLEPHRINE 100MCG/ML 5ML SYR IV PRN (10:16)
[2021-10-12] MEDS ORDERED: ONDANSETRON INJ 2 MG/ML 2 ML VIAL IV PRN (10:16)
[2021-10-12] MEDS ORDERED: ATROPINE SULFATE 0.1 MG/ML 10ML SYR IV PRN (10:16)
--- NOTE | 2021-10-12 10:18 | Anesthesiology Consultation ---
Date of Service October 12, 2021 Assessment & Plan (1) Encounter for pre-operative examination: Chart Review Chart Review: Acceptable Risk for Surgery (necessary surgery) and Patient NOT seen in Pre Admission Testing Consults Requested none History Surgery Operation Date: 10/12/21 13:00 Proposed Procedures p Cystoscopy Left Retrograde Pyelogram Left Stent Placement Possible Stone Treatment - Rajan Adam, DO Height/Weight Height: 4 ft 11 in Weight: 99.1 kg Allergies Allergy/AdvReac Type Severity Reaction Status Date / Time salicylates Allergy Severe SHORTNESS Verified 10/11/21 19:18 OF BREATH Iodinated Contrast Media Allergy Intermediate EYES Verified 10/11/21 19:18 SWELLING/Hives amoxicillin [From Augmentin] Allergy Mild Rash Verified 10/11/21 19:18 aspirin Allergy Mild FACIAL Verified 10/11/21 19:18 SWELLING clavulanic acid Allergy Mild Rash Verified 10/11/21 19:18 [From Augmentin] hydromorphone Allergy Mild RASH/ITCHIN Verified 10/11/21 19:18 G fentanyl Allergy itching/felt Verified 10/11/21 19:18 like throat closing meperidine AdvReac Intermediate ITCH Verified 10/11/21 19:18 morphine AdvReac Intermediate ITCH Verified 10/11/21 19:18 tramadol AdvReac Mild itch Verified 10/11/21 19:18 Medications Home Medications Medication Instructions Recorded Confirmed Last Taken atorvastatin 40 mg tablet (Lipitor) 40 mg PO QPM 07/12/18 10/11/21 09/13/21 clopidogrel 75 mg tablet (Plavix) 75 mg PO QPM 07/12/18 10/11/21 09/13/21 pantoprazole 40 mg tablet,delayed 40 mg PO BID 07/12/18 10/11/21 09/13/21 release (Protonix) riboflavin (vitamin B2) 400 mg 400 mg PO QPM 07/12/18 10/11/21 09/13/21 tablet cholecalciferol (vitamin D3) 50 2,000 unit PO QAM 05/16/19 10/11/21 09/13/21 mcg (2,000 unit) capsule (Vitamin D3) albuterol sulfate 90 mcg/actuation 2 puff INHALATION Q4H PRN 07/21/19 10/11/21 09/13/21 aerosol inhaler magnesium oxide 400 mg PO HS 1210/11/21 09/13/21 fluticasone fur. 100 mcg-umeclid 1 inh INHALATION DAILY PRN 12/11/20 10/11/21 09/13/21 62.5 mcg-vilant 25 mcg inhalat.powder (Trelegy Ellipta) metoprolol succinate 25 mg 25 mg PO PM tab 12/11/20 10/11/21 09/13/21 tablet,extended release 24 hr metoprolol succinate 50 mg 50 mg PO QAM 12/11/20 10/11/21 09/13/21 tablet,extended release 24 hr glipizide 2.5 mg tablet, extended 2.5 mg PO PM 04/29/21 10/11/21 09/13/21 release 24 hr (Glucotrol XL) ondansetron 4 mg disintegrating 4 mg PO Q8H PRN #10 tab 06/02/21 10/11/21 09/13/21 tablet doxepin 50 mg capsule 50 mg PO HS 09/14/21 10/11/21 09/13/21 acetaminophen 500 mg tablet 1,000 mg PO AMHS 10/11/21 10/11/21 Unknown (Tylenol Extra Strength) duloxetine 60 mg capsule,delayed 60 mg PO DAILY 10/11/21 10/11/21 Unknown release oxcarbazepine 300 mg tablet 300 mg PO BID 10/11/21 10/11/21 Unknown Active Medications Generic Name Dose Route Start Last Admin Trade Name Freq PRN Reason Stop Dose Admin Acetaminophen 650 mg 10/11/21 21:34 10/12/21 02:07 Acetaminophen 325 Mg Tab PO 11/10/21 21:33 650 mg Q8H PRN Administration Pain Clopidogrel Bisulfate 75 mg 10/11/21 21:34 10/11/21 23:27 Clopidogrel Bisulfate 75 Mg Tab PO 11/10/21 21:33 75 mg QPM MARLA Administration Heparin Sodium (Porcine) 5,000 units 10/11/21 22:00 10/12/21 06:16 Heparin Sod 5,000 Unit/0.5 Ml Vial SQ 11/10/21 21:59 5,000 units Q8 MARLA Administration Sodium Chloride 1,000 mls @ 125 mls/hr 10/11/21 19:15 10/12/21 06:15 Nss 1000ml IV 10/12/21 11:14 125 mls/hr .Q8H MARLA Administration Insulin Aspart 0 units 10/11/21 21:00 10/12/21 07:41 Insulin Aspart Per Unit SC 11/10/21 20:59 Not Given ACHS MARLA Insulin Glargine 5 units 10/11/21 21:00 10/12/21 09:44 Insulin Glargine Solostar 100 Units/Ml 3 Ml Pen SC 11/10/21 20:59 Not Given BID MARLA Metoprolol Tartrate 5 mg 10/11/21 20:30 10/12/21 07:41 Metoprolol Tartrate 1 Mg/Ml Vial IV 11/10/21 20:29 5 mg Q12H MARLA Administration Morphine Sulfate 2 mg 10/11/21 19:36 10/12/21 09:30 Morphine Sulfate 2 Mg/Ml Carp IV 10/25/21 19:35 2 mg Q4H PRN Administration Pain Ondansetron HCl 4 mg 10/11/21 19:38 10/12/21 04:55 Ondansetron Inj 2 Mg/Ml 2 Ml Vial IV 11/10/21 19:44 4 mg Q6H PRN Administration nausea, vomiting NPO Date Last Intake of Fluids: 10/11/21 Time Last Intake of Fluids: 21:00 Date Last Intake of Solids: 10/09/21 Time Last Intake of Solids: 20:00 Past Medical History Medical History Acute UTI (urinary tract infection) has presently per pt Anxiety Asthma well controlled per pt, rare inh use CHF (congestive heart failure) follows with Dr. Singh Chronic back pain Chronic headaches Chronic renal insufficiency stage 3, following with [facility] nephrology ([place]) Chronic respiratory failure with hypoxia Was on home oxygen in the past but no longer using at this time CKD (chronic kidney disease) COPD (chronic obstructive pulmonary disease) Deep vein thrombosis LLE - COULD NOT RECALL DATE - REPORTS SHE WAS TREATED AT [facility] W/ BLOOD THINNERS Depression Diabetes mellitus, type 2 GERD (gastroesophageal reflux disease) History of colon cancer 2012 S/P BOWEL RESECTION. History of COVID-27 Sep 2020 HTN (hypertension) Hyperlipidemia Mood disorder Morbid obesity with BMI of 40.0-44.9, adult Myocardial Infarction 06/2016--> [facility] -- CARDIAC CATH --> normal coronary anatomy without coronary obstruction but Plavix started per [facility] discharge summary On anticoagulant therapy plavix daily CALI (obstructive sleep apnea) Poor historian Seizure Pt states "i think i had them a long time ago". no other information. No hx of seizures noted in records Sinus tachycardia Follows with cardio Past Family History Family History Other Breast cancer Past Surgical History Surgical History H/O hand surgery RIGHT History of appendectomy History of bilateral cataract extraction History of blepharoplasty History of cardiac cath 03/2018 - CT - DENIES STENTS/ANGIOPLASTY - [facility] - FOLLOWS W/ DR. SINGH History of closure of ileostomy History of colectomy due to colon cancer History of colonoscopy History of cystoscopy History of esophageal dilatation History of esophagogastroduodenoscopy (EGD) History of hysterectomy History of kidney surgery at age 9 yrs "something was wrong and had to fix it" History of lithotripsy History of tooth extraction History of total abdominal hysterectomy and bilateral salpingo-oophorectomy Hx of cholecystectomy Social History Smoking Status: Never smoker tobacco type: cigarettes Hx Alcohol Use: No Hx Substance Use: No substance use type: does not use Last Used Substance Other:: hasnt used for at least 1 year Physical Exam Vital Signs Last Vital Signs Temp 37.5 C 10/12/21 09:56 Pulse 96 H 10/12/21 09:56 Resp 20 10/12/21 09:56 BP 118/73 10/12/21 09:56 Pulse Ox 99 10/12/21 09:56 Testing Laboratory Results 10/12/21 06:08 10/12/21 06:08 PT 9.9 Seconds (9.0-12.0) 10/11/21 17:25 INR 1.0 (0.9-1.1) 10/11/21 17:25 APTT 26.5 Seconds (21.0-31.0) 10/11/21 17:25 Hemoglobin A1c 6.5 % (4.5-5.6) H 10/12/21 06:08 Urine Color Yellow 10/11/21 Unknown Urine Appearance Turbid (Clear) A 10/11/21 Unknown Urine pH 5.5 (4.5-7.5) 10/11/21 Unknown Ur Specific [place] 1.013 (1.000-1.030) 10/11/21 Unknown Urine Protein 2+ (Negative) H 10/11/21 Unknown Urine Glucose (UA) Negative (Negative) 10/11/21 Unknown Urine Ketones Negative (Negative) 10/11/21 Unknown Urine Nitrite Negative (Negative) 10/11/21 Unknown Ur Leukocyte Esterase 3+ (Negative) H 10/11/21 Unknown Urine WBC (Auto) >30 /hpf (0-5) H 10/11/21 Unknown Urine RBC (Auto) 10-30 /hpf (0-4) H 10/11/21 Unknown U Hyaline Cast (Auto) 1-5 /lpf (0-5) 10/11/21 Unknown U Epithel Cells (Auto) >30 /lpf (0-5) H 10/11/21 Unknown Urine Bacteria (Auto) Negative (Negative) 10/11/21 Unknown 10/12/21 07:37 POC Glucose 97 Electrocardiogram Date: 10/11/21 Findings: + ST @ (121 with PACs) inferior infarct Chest X-Ray Date: 10/11/21 SINGLE VIEW CHEST CLINICAL HISTORY: Sepsis. FINDINGS: An AP, portable, upright chest radiograph is compared to study dated 09/14/2021. The examination is degraded by portable technique and apical lordotic positioning. The cardiomediastinal silhouette is unremarkable. Chronic interstitial thickening is similar to previous. Mild atelectasis is noted at the lung bases. The lungs and pleural spaces are otherwise clear. No pneumothorax is seen. The skeletal structures are osteopenic. The bony thorax is grossly intact. IMPRESSION: No active disease in the chest. ACT 112: Negative or not required by law. Electronically signed by: Caesar Yoon M.D. 10/11/2021 5:58 PM Dictated:10/11/[id number] Transcribed: 10/11/211756 Echocardiogram Date: 09/04/20 EF: 65-70 Other Findings: + LVH (mild concentric)
[2021-10-12] MEDS ORDERED: ceFAZolin 2000MG 2,000 MG/15 ML SYR IV ONE (10:45)
[2021-10-12] MEDS ORDERED: PROPOFOL IV EMULSION 10 MG/ML 20 ML VIAL IV ONE (10:52)
[2021-10-12] MEDS ORDERED: ONDANSETRON INJ 2 MG/ML 2 ML VIAL ONE (10:52)
[2021-10-12] MEDS ORDERED: LIDOCAINE 2% 2 ML VIAL/AMP(20MG/ML) INFIL ONE (10:52)
--- NOTE | 2021-10-12 10:58 | Operative Report ---
PG Post Operative Report Pre & Post Diagnosis Obstructing Left Stone, Febrile Same Operation Date: 10/12/21 13:00 <No data on this case meets the specified criteria> I identified the patient and participated in the time-out.: Yes Procedure Cystoscopy with left retrograde pyelogram, aspiration, and stent placement. Operation Date: 10/12/21 13:00 <No data on this case meets the specified criteria> Surgeon Rajan Adam, II, DO Physician Relations Specialist None Estimated Blood Loss 1 Findings Consistent with Post-Op Diagnosis Stent placed in good position. Specimens Left Renal pelvis urine Drains 6 Fr x 24 on left 16 Fr hernandez Anesthesia Type MAC Complications none Disposition Disposition: Recovery Room Indications Patient with obstruction. Risks and benefits discussed at length. Description of Procedure Patient was consented and brought back to the operating room. Patient was placed under anesthesia in the supine position and moved to the dorsal lithotomy p osition. Patient was prepped and draped in the regular sterile fashion. A time out was completed. A 30degree Cystoscope was placed into the bladder and the entire bladder was examined. The UO's were identified. The UO was cannulized with a catheter, urine was aspirated, and a retrograde pyelogram was completed. A wire was then placed. With the wire in place, a 6 Fr Double J stent was placed. It was confirmed with fluoroscopy. With the stent in place, the bladder was emptied. The scope was removed. A 16 fr hernandez was placed. The patient was cleaned, aroused from anesthesia, and transferred to the pacu in stable condition having tolerated the procedure well with no complications. I was present and participated in all aspects of the procedure. The patient will be monitored in the PACU until transferred. Maintain catheter over night. Monitor fevers post op and attempt to transition to oral antibiotic. Await culture results. Plan for 1-3 weeks with treatment of stone after adequate treatment. I attest to the content of the Intraoperative Record and any orders documented therein. Any exceptions are noted below.
--- NOTE | 2021-10-12 11:06 | Fluoroscopy Report ---
FL retrograde includes kub CLINICAL HISTORY: CYSTO TECHNIQUE: 3 views were obtained with the C-arm in the OR with the above procedure. Total fluoroscopy time was 14.2 seconds. Total skin dose was 4.07 mGy. Comparison: None available at the time of this dictation. FINDINGS/IMPRESSION: Intraoperative images of retrograde pyelogram and stent placement were obtained. Please correlate with intraoperative fluoroscopy and operative report. ACT 112: Negative or not required by law. Electronically signed by: Yuan Jorge M.D. 10/12/2021 11:04 AM
[2021-10-12] MEDS ORDERED: MoRPHine SULFATE 4 MG/ML 1 ML CARP\\VIAL IV STA (11:10)
[2021-10-12] MEDS ORDERED: MoRPHine SULFATE 4 MG/ML 1 ML CARP\\VIAL ONE (11:11)
--- NOTE | 2021-10-12 12:02 | Anesthesiology Progress Note ---
Date of Service October 12, 2021 Anesthesia Post Procedure Vital Signs Vital Signs: Temp Pulse Pulse Pulse Resp BP BP 10/12/21 11:30 36.5 C 91 H 23 99/65 L 10/12/21 11:20 93 H 19 102/76 10/12/21 11:10 92 H 19 112/69 10/12/21 11:02 37.0 C 89 17 110/66 10/12/21 09:56 37.5 C 96 H 20 118/73 10/12/21 07:41 110 H 131/67 10/12/21 07:25 36.9 C 109 H 22 131/67 10/12/21 04:51 36.8 C 100 H 16 138/81 10/12/21 02:00 38 C H 107 H 22 139/84 10/11/21 23:23 115 H 22 119/75 10/11/21 21:43 129 H 24 154/118 H 10/11/21 19:09 117 H 116 H 24 130/103 H 10/11/21 17:31 10/11/21 16:48 116 H 20 139/87 10/11/21 14:20 36.5 C 114 H 20 114/85 Pulse Ox 10/12/21 11:30 98 10/12/21 11:20 98 10/12/21 11:10 100 10/12/21 11:02 100 10/12/21 09:56 99 10/12/21 07:41 10/12/21 07:25 99 10/12/21 04:51 97 10/12/21 02:00 94 10/11/21 23:23 93 10/11/21 21:43 95 10/11/21 19:09 96 10/11/21 17:31 92 10/11/21 16:48 98 10/11/21 14:20 96 Pain Intensity Abdomen: Pain Intensity: 2 Transfer of Care Handoff Completed per policy Notes Mental Status: alert / awake / arousable Patient Amnestic to Procedure: Yes Nausea / Vomiting: adequately controlled Pain: adequately controlled Airway Patency, RR, SpO2: stable & adequate BP & HR: stable & adequate Hydration State: stable & adequate Anesthetic Complications: no major complications apparent and Pt Satisfied with anesthetic care Notes: The patient is awake and comfortable.
[2021-10-12] MEDS ORDERED: BELLADONNA/OPIUM SUPP 60 MG SUPP PR ONE (13:06)
--- NOTE | 2021-10-12 13:07 | Electrocardiogram Report ---
Test Reason : Blood Pressure : / mmHG Vent. Rate : 121 BPM Atrial Rate : 121 BPM P-R Int : 142 ms QRS Dur : 056 ms QT Int : 290 ms P-R-T Axes : 015 -12 090 degrees QTc Int : 411 ms Poor data quality, interpretation may be adversely affected Sinus tachycardia with Premature atrial complexes Inferior infarct , age undetermined Abnormal ECG When compared with ECG of 14-SEP-2021 10:10, Premature atrial complexes are now Present Inferior infarct is now Present Confirmed by Kodak Mei ([id number]) on 10/12/2021 1:07:27 PM Referred By: REFERRED SELF Confirmed By:Kodak Mei
[2021-10-12] MEDS ORDERED: SODIUM CHLORIDE 0.9% 1000ML 1,000 ML IV SCH (13:15)
[2021-10-12] MEDS: PHENAZOPYRIDINE HCL 200 MG TAB PO SCH ×2 (13:54→20:17)
--- NOTE | 2021-10-12 14:55 | Hospitalist Progress Note ---
Date of Service October 12, 2021 Assessment & Plan (1) Obstructive pyelonephritis: Plan: Per #3 (2) Ureteral calculus: Plan: Per #3 (3) Renal colic: Plan: Status post cystoscopy with left retrograde pyelogram aspiration and stent placement by Dr. Adam this morning. Some postoperative discomfort. Will add Pyridium 3 times daily scheduled and BNO suppository now. Blood pressure is on the soft side we will continue with IV fluids for another liter. Continue ceftriaxone pending urine culture results. (4) Chronic respiratory failure with hypoxia: Plan: Chronic, stable on home O2. She is just postoperative and is 98% on 2 L/min. Not working to breathe. (5) Morbid obesity with BMI of 40.0-44.9, adult: Plan: Lifestyle modifications recommended to decrease percent body fat and overall increase lean muscle mass. (6) Diabetes mellitus, type 2: Plan: Home glipizide held and blood sugars controlled on current basal bolus insulin. (7) Anemia: Plan: Two gm decreased from yesterday's baseline, 11.6/37.4--> 9.4/32, possibly secondary to dilution. No evidence of acute blood loss. Trend CBC in a.m. (8) Dehydration: Plan: secondary to at least 3 days of intolerance to p.o. secondary to nausea and vomiting which have resolved. Continue supportive care with IV fluids and encourage p.o. intake. (9) DVT prophylaxis: Plan: Heparin Full Code Dispo-pending clinical improvement post-operatively. PT/OT assessments ordered. Johanna Harris DO [facility] Hospitalist Admission and Anticipated Discharge Date Admission Date: October 11, 2021 Subjective 65-year-old female presented with fever abdominal pain decreased appetite x3 days secondary to an obstructing ureteral calculus. She did not meet criteria for sepsis but was started on antibiotics. Urology was consulted and she was taken for a left ureteral stent placement this morning. Postoperatively she reports persistent pain especially dysuria with urinating. She otherwise denies any nausea and vomiting which has resolved and no other symptoms at this time. Review of Systems Review of Systems: All systems were reviewed and negative except as indicated above. Physical Exam Constitutional: CONSTITUTIONAL: WNWD, vitals as above, generally well- appearing, NAD EYES: normal conjunctivae, no scleral icterus ENT: external ear and nose normal, MMM NECK: trachea midline RESPIRATORY: clear to auscultation bilaterally, no crackles, rales or wheezes, normal respiratory effort CARDIOVASCULAR: regular rate and rhythm, S1 and 2 heard without murmurs, gallops or rubs, no JVD, no peripheral edema GASTROINTESTINAL: soft, nontender, ND, no guarding MUSCULOSKELETAL: strength 5/5 throughout, head is normocephalic and atraumatic, neck supple, normal palpation of chest wall without tenderness SKIN: warm and dry NEUROLOGIC: CN 2-12 grossly intact, no sensory deficit, normal cognition, normal speech, no tremor, no gross focal deficits. PSYCHIATRIC: alert cooperative and oriented to person, place and time. Results & Data Results & Data ([facility]) Vital Signs (Past 12 Hours) Vital Signs Temp Pulse Pulse Pulse Resp BP BP 10/12/21 11:30 36.5 C 91 H 23 99/65 L 10/12/21 11:20 93 H 19 102/76 10/12/21 11:10 92 H 19 112/69 10/12/21 11:02 37.0 C 89 17 110/66 10/12/21 09:56 37.5 C 96 H 20 118/73 10/12/21 07:41 110 H 131/67 10/12/21 07:25 36.9 C 109 H 22 131/67 10/12/21 04:51 36.8 C 100 H 16 138/81 Pulse Ox 10/12/21 11:30 98 10/12/21 11:20 98 10/12/21 11:10 100 10/12/21 11:02 100 10/12/21 09:56 99 10/12/21 07:41 10/12/21 07:25 99 10/12/21 04:51 97 Laboratory Results Short CBC 10/11/21 10/12/21 Range/Units 17:25 06:08 WBC 9.07 6.51 (4.8-10.8) K/uL Hgb 11.6 L 9.4 L (12.0-16.0) g/dL Hct 37.4 31.9 L (37-47) % Plt Count 244 203 (130-400) K/uL BMP 10/11/21 10/12/21 17:25 06:08 Sodium 140 144 Potassium 3.8 3.7 Chloride 109 H 115 H Carbon Dioxide 22 21 BUN 14 12 Creatinine 2.01 H 1.73 H Glucose 151 H 117 H Calcium 9.3 8.4 L Cardiac Enzymes 10/11/21 Range/Units 17:25 Troponin I < 0.015 (0-0.045) ng/ml Liver Function 10/11/21 Range/Units 17:25 Total Bilirubin 0.3 (0.2-1) mg/dl AST 14 L (15-37) U/L ALT 22 (12-78) Alkaline Phosphatase 127 H (45-117) U/L Albumin 2.9 L (3.4-5.0) gm/dl Urine 10/11/21 Range/Units Unknown Urine Color Yellow Urine Appearance Turbid A (Clear) Urine pH 5.5 (4.5-7.5) Ur Specific [place] 1.013 (1.000-1.030) Urine Protein 2+ H (Negative) Urine Glucose (UA) Negative (Negative) Diagnostic Findings Retrograde Pyelogram 10/12/21 00:00 FL retrograde includes kub CLINICAL HISTORY: CYSTO TECHNIQUE: 3 views were obtained with the C-arm in the OR with the above procedure. Total fluoroscopy time was 14.2 seconds. Total skin dose was 4.07 mGy. Comparison: None available at the time of this dictation. FINDINGS/IMPRESSION: Intraoperative images of retrograde pyelogram and stent placement were obtained. Please correlate with intraoperative fluoroscopy and operative report. ACT 112: Negative or not required by law. Electronically signed by: Yuan Jorge M.D. 10/12/2021 11:04 AM Medications Administered Current Inpatient Medications Acetaminophen (Acetaminophen 325 Mg Tab) 650 mg PO Q8H PRN PRN Reason: Pain Stop: 11/10/21 21:33 Last Admin: 10/12/21 02:07 Dose: 650 mg Documented by: Atropine Sulfate (Atropine Sulfate 0.1 Mg/Ml 10ml Syr) 0.5 mg IV Q1M PRN PRN Reason: PACU Use-HR<40 &/or Bradycardi Stop: 10/12/21 18:16 Clopidogrel Bisulfate (Clopidogrel Bisulfate 75 Mg Tab) 75 mg PO QPM MARLA Stop: 11/10/21 21:33 Last Admin: 10/11/21 23:27 Dose: 75 mg Documented by: Dextrose (Dextrose 50% 50 Ml Syringe) 25 - 50 ml IV UD PRN; Protocol PRN Reason: Hypoglycemia Protocol Stop: 11/10/21 19:30 Diatrizoate Meglumine (Diatrizoate Meglumine 30% 100ml Vial) 100 ml INSTIL UD PRN PRN Reason: Radiology Use Stop: 10/16/21 09:31 Ephedrine Sulfate (Ephedrine Sulfate 50 Mg/Ml Amp) 5 mg IV Q5M PRN PRN Reason: PACU Use Only-SBP<90 mmHg Stop: 10/12/21 18:16 Fluticasone Furoate (Fluticasone Furoate 100mcg 14 Puffs/Inhaler) 1 puffs INH DAILY PRN PRN Reason: Shortness Of Breath Stop: 11/10/21 21:47 Glucagon (Glucagon For Inj 1 Mg Vial) 1 mg SQ UD PRN; Protocol PRN Reason: Hypoglycemia Protocol Stop: 11/10/21 19:30 Glucose (Glucose 10 Tabs/Tube) 4 - 8 tabs PO UD PRN; Protocol PRN Reason: Hypoglycemia Protocol Stop: 11/10/21 19:30 Glucose (Glucose 40% Gel 15 Gm Tube) 15 - 30 gm PO UD PRN; Protocol PRN Reason: Hypoglycemia Protocol Stop: 11/10/21 19:30 Heparin Sodium (Porcine) (Heparin Sod 5,000 Unit/0.5 Ml Vial) 5,000 units SQ Q8 [facility] Stop: 11/10/21 21:59 Last Admin: 10/12/21 06:16 Dose: 5,000 units Documented by: Ceftriaxone Sodium 2,000 mg/ (Dextrose) 70 mls @ 140 mls/hr IV Q24H MARLA Stop: 10/22/21 12:59 Sodium Chloride (Nss 1000ml) 1,000 mls @ 250 mls/hr IV .Q4H MARLA Stop: 10/12/21 17:14 Insulin Aspart (Insulin Aspart Per Unit) 0 units SC ACHS MARLA Stop: 11/10/21 20:59 Last Admin: 10/12/21 12:34 Dose: Not Given Documented by: Insulin Glargine (Insulin Glargine Solostar 100 Units/Ml 3 Ml Pen) 5 units SC BID [facility] Stop: 11/10/21 20:59 Last Admin: 10/12/21 09:44 Dose: Not Given Documented by: Labetalol HCl (Labetalol Hcl Iv 5 Mg/Ml 20ml) 5 mg IV Q5M PRN PRN Reason: PACU Use-SBP>160 or DBP>100 Stop: 10/12/21 18:16 Metoprolol Tartrate (Metoprolol Tartrate 1 Mg/Ml Vial) 5 mg IV Q12H [facility] Stop: 11/10/21 20:29 Last Admin: 10/12/21 07:41 Dose: 5 mg Documented by: Miscellaneous (Carbohydrates For Hypoglycemia ) 15 - 30 gm PO UD PRN PRN Reason: Hypoglycemia Protocol Stop: 11/10/21 19:30 Morphine Sulfate (Morphine Sulfate 2 Mg/Ml Carp) 2 mg IV Q4H PRN PRN Reason: Pain Stop: 10/25/21 19:35 Last Admin: 10/12/21 13:54 Dose: 2 mg Documented by: Ondansetron HCl (Ondansetron Inj 2 Mg/Ml 2 Ml Vial) 4 mg IV Q6H PRN PRN Reason: nausea, vomiting Stop: 11/10/21 19:44 Last Admin: 10/12/21 04:55 Dose: 4 mg Documented by: Ondansetron HCl (Ondansetron Inj 2 Mg/Ml 2 Ml Vial) 4 mg IV ONCE PRN PRN Reason: PACU Use Only-Nausea/Vomiting Stop: 10/12/21 18:16 Phenazopyridine HCl (Phenazopyridine Hcl 200 Mg Tab) 200 mg PO TID [facility] Stop: 11/11/21 13:59 Last Admin: 10/12/21 13:54 Dose: 200 mg Documented by: Phenylephrine HCl (Phenylephrine 100mcg/Ml 5ml Syr) 100 mcg IV Q5M PRN PRN Reason: PACU Use Only-SBP<90 or HR>70 Stop: 10/12/21 18:16 Umeclidinium/Vilanterol (Umeclidinium/Vilanterol 62.5/25mcg 7 Puffs/Inhaler) 1 puffs INH DAILY PRN PRN Reason: Shortness Of Breath Stop: 11/10/21 21:48
[2021-10-12] MEDS ORDERED: cefTRIAXone SODIUM 1,000 MG in DEXTROSE 5% 50 ML IV SCH (16:15)
[2021-10-12] MEDS: cefTRIAXone SODIUM 2,000 MG in DEXTROSE 5% 50 ML IV SCH (17:29)
[2021-10-12] MEDS: METOPROLOL SUCC 25MG EXT REL TAB PO SCH (20:17)
[2021-10-12] MEDS: CLOPIDOGREL BISULFATE 75 MG TAB PO SCH (20:17)
[2021-10-12] MEDS: PANTOprazole 40 MG TAB PO SCH (20:18)
[2021-10-12] MEDS: ATORVASTATIN 40 MG TAB PO SCH (20:18)
[2021-10-12] MEDS: OXcarbazepine 150 MG TABLET PO SCH (20:18)
[2021-10-12] MEDS: MAGNESIUM OXIDE 400 MG TAB PO SCH (20:18)
[2021-10-12] MEDS: DOXEPIN HCL 50 MG CAPSULE PO SCH (20:21)
[2021-10-12] MEDS ORDERED: NON-FORMULARY MEDICATION (Riboflavin (Vitamin B2) 400 mg Tablet) PO SCH (21:00)
[2021-10-13] MEDS: ONDANSETRON INJ 2 MG/ML 2 ML VIAL IV PRN (03:10)
[2021-10-13] MEDS: MoRPHine SULFATE 2 MG/ML CARP IV PRN ×2 (03:10→08:10)
[2021-10-13] MEDS: ACETAMINOPHEN 325 MG TAB PO PRN (03:17)
[2021-10-13] MEDS: HEPARIN SOD 5,000 UNIT/0.5 ML VIAL SQ SCH ×3 (05:05→21:01)
[2021-10-13] MEDS: UMECLIDINIUM/VILANTEROL 62.5/25MCG 7 PUFFS/INHALER INH PRN (08:10)
[2021-10-13] MEDS: METOPROLOL SUCC 50MG EXT REL TAB PO SCH (08:11)
[2021-10-13] MEDS: FLUTICASONE FUROATE 100MCG 14 PUFFS/INHALER INH PRN (08:11)
[2021-10-13] MEDS: PHENAZOPYRIDINE HCL 200 MG TAB PO SCH ×3 (08:11→20:58)
[2021-10-13] MEDS: OXcarbazepine 150 MG TABLET PO SCH ×2 (08:11→20:58)
[2021-10-13] MEDS: DULoxetine HCL 60 MG CAP PO SCH (08:12)
[2021-10-13] MEDS: CHOLECALCIFEROL 1,000 UNITS 25 MCG TAB PO SCH (08:12)
[2021-10-13] MEDS: PANTOprazole 40 MG TAB PO SCH ×2 (08:12→20:57)
[2021-10-13] MEDS: INSULIN GLARGINE SOLOSTAR 100 UNITS/ML 3 ML PEN SC SCH ×2 (08:13→21:01)
[2021-10-13] MEDS: INSULIN ASPART PER UNIT SC SCH ×4 (08:17→21:01)
--- NOTE | 2021-10-13 08:48 | Urology Progress Note ---
Date of Service October 13, 2021 Assessment & Plan (1) Ureteral calculus: (2) Obstructive pyelonephritis: (3) Renal colic: Plan: 65 y/o female with a complex past medical hx admitted with possible pyelonephritis in the setting of an obstructing 5mm left ureteral stone - POD #1 s/p Cystoscopy with left retrograde pyelogram, aspiration, and stent placement. - Reports suprapubic discomfort this morning, likely related to ureteral stent and catheter. - Afebrile at present - Temp overnight 37.9 at 0313. - Labs reviewed - Wbc 5.77, Creatinine 1.91- Continue to trend. - UCx from admission negative for infection; Blood cultures prelim no growth x 24hours - Continues on IV Ceftriaxone - Intraoperative Left Renal pelvis urine aspirate preliminary no growth. - Purvis catheter to be removed this morning. Continue to monitor, bladder scan as needed. - Recommend continuing prn pyridium and prn BNO supp. - Continue supportive care, antibiotic therapy, and pain management - Will continue to follow. Admission and Anticipated Discharge Date Admission Date: October 11, 2021 Subjective Pt examined at bedside this AM. Awake, resting in bed on arrival. Reports persistent lower abdominal/suprapubic discomfort. Febrile overnight 37.9 @ 0313. Some nausea this morning per her report. Purvis intact, draining yellow urine. On 2L O2 via NC. Reports she had a BM this morning. Review of Systems Constitutional: as per Subjective / HPI Gastrointestinal: as per Subjective / HPI Genitourinary: as per Subjective / HPI Physical Exam Constitutional: no acute distress Respiratory: no labored breathing and no audible wheezes On 2L O2 via NC Gastrointestinal (Abdomen): Inspection/Auscultation: abdomen normal to inspection Percussion/Palpation: + abdomen tender (Suprapubic/lower abdominal tenderness with palpation) and abdomen soft; no guarding Musculoskeletal: Head/Neck/Chest: normocephalic Skin: No visible rashes or lesions to exposed skin areas Neurologic: moves all extremities and awake Psychiatric: Orientation: alert, oriented x 3 and cooperative Genitourinary: Purvis catheter intact, draining yellow urine Results & Data ([facility]) Vital Signs (Past 12 Hours) Vital Signs Temp Pulse Pulse Resp BP Pulse Ox 10/13/21 07:33 36.9 C 92 H 16 125/83 94 10/13/21 03:13 37.9 C H 110 H 20 111/69 96 10/12/21 23:57 97 H 10/12/21 22:35 99 H 10/12/21 22:05 37.6 C H 99 H 20 136/81 98 PG Care Time/CCT Total # of Minutes Spent Total Time Spent with Patient: Total time spent is greater than 50% in coordination of care (as documented) at patient's floor/unit and/or counseling patient: Coding Level of Care Code 11349 Subseq Hosp Care Lvl 2 Diagnoses Ureteral calculus N20.1 Obstructive pyelonephritis N11.1 Renal colic N23
[2021-10-13] MEDS ORDERED: ACETAMINOPHEN W/CODEINE #3 1 TAB PO PRN (09:32)
[2021-10-13] MEDS ORDERED: ACETAMINOPHEN 325 MG TAB PO PRN (09:59)
[2021-10-13] MEDS: ACETAMINOPHEN W/CODEINE #3 1 TAB PO PRN ×3 (10:06→18:05)
[2021-10-13 10:52] LABS: BUN Creatinine Ratio 4.6 (10-20); Calcium 8.6 mg/dl (8.5-10.1); Creatinine Clr Calc Pharmacy 29.9 ml/min; Est GFR (African American) 30.9 ml/min; Est GFR (Non-African American) 26.6 ml/min; Hematocrit (blood only) 34.3 % (37-47); Hemoglobin 10.2 g/dL (12.0-16.0); Mean Corpuscular Hgb Conc 29.7 g/dL (32-36); Mean Corpuscular Volume 100.9 fL (80-100); Mean Platelet Volume 10.1 fL (7.4-10.4); Platelet Count 164 K/uL (130-400); Potassium 3.9 mmol/L (3.5-5.1); RDW Coefficient of Variation 14.7 % (11.5-14.5); RDW Standard Deviation 54.4 fL (36.4-46.3); White Blood Count 5.77 K/uL (4.8-10.8)
--- NOTE | 2021-10-13 13:04 | Hospitalist Progress Note ---
Date of Service October 13, 2021 Assessment & Plan (1) Obstructive pyelonephritis: Plan: Per #2 (2) Complicated UTI (urinary tract infection): Plan: Two negative urine culture results, however,fever persists overnight. With infectious appearing presentation and presumed pyelo, would cont her on a short course of antibiotics. Cont to monitor fever curve and evaluate further if needed. Cont Rocephin for now and can transition to oral abx once she is afebrile for 24 hours. (3) Pain due to ureteral stent: Plan: Declines B&O suppository, cont pyridium. Morphine unhelpful this morning. NSAIDs contraindicated 2/2 allergy. Try T#3. Remove hernandez to see if this helps. Mobilize and ambulate as tolerated. PT/OT ordered. Cont abx. (4) Ureteral calculus: Plan: Per #3 (5) Renal colic: Plan: Status post cystoscopy with left retrograde pyelogram aspiration and stent placement by Dr. Adam 10/12 . Post op discomfort persists. Suspect stent pain vs pressure from hernandez which is being removed. UTI ruled out. (6) Dehydration: Plan: secondary to at least 3 days of intolerance to p.o. secondary to nausea and vomiting which have resolved. Continue supportive care with IV fluids and encourage p.o. intake. (7) Chronic respiratory failure with hypoxia: Plan: Chronic, stable on home O2. She is just postoperative and is 98% on 2 L/min. Not working to breathe. (8) Morbid obesity with BMI of 40.0-44.9, adult: Plan: Lifestyle modifications recommended to decrease percent body fat and overall increase lean muscle mass. (9) Diabetes mellitus, type 2: Plan: Chronic, stable. Home glipizide held and blood sugars controlled on current basal bolus insulin. (10) Anemia: Plan: Two gm decreased from yesterday's baseline, 11.6/37.4--> 9.4/32, possibly secondary to dilution. No evidence of acute blood loss. H/H improved back up to 10.2/34.3. Would repeat as outpatient in PCP followup and pursue further investigation at that time as needed. (11) DVT prophylaxis: Plan: Heparin Full Code Dispo-pending clinical improvement post-operatively. PT/OT assessments ordered. DO Davon [facility] Admission and Anticipated Discharge Date Admission Date: October 11, 2021 Subjective 65-year-old female presented with fever abdominal pain decreased appetite x3 days secondary to an obstructing ureteral calculus. She did not meet criteria for sepsis but was started on antibiotics. Urology was consulted and she was taken for a left ureteral stent placement this morning. Postoperatively she reports persistent pain especially dysuria with urinating. This is still persistent this morning and morphine has not been helpful. She dneies B&O suppository offered yesterday. She has a listed allergy to NSAIDs. She otherwise denies any nausea and vomiting which has resolved and no other symptoms at this time. Febrile overnight to 37.9 C around 0300. Continues on baseline oxygen supplementation per her baseline. Continues on Rocephin pending culture results. Review of Systems Review of Systems: All systems were reviewed and negative except as indicated above. Physical Exam Constitutional: CONSTITUTIONAL: obese, vitals as above, generally well- appearing, NAD EYES: normal conjunctivae, no scleral icterus ENT: external ear and nose normal, MMM NECK: trachea midline RESPIRATORY: clear to auscultation bilaterally, no crackles, rales or wheezes, normal respiratory effort CARDIOVASCULAR: regular rate and rhythm, S1 and 2 heard without murmurs, gallops or rubs, no JVD, no peripheral edema GASTROINTESTINAL: soft, suprapubic/left sided abdominal pain with some guarding. Nondistended. MUSCULOSKELETAL: strength 5/5 throughout, head is normocephalic and atraumatic, neck supple, normal palpation of chest wall without tenderness SKIN: warm and dry NEUROLOGIC: CN 2-12 grossly intact, no sensory deficit, normal cognition, normal speech, no tremor, no gross focal deficits. PSYCHIATRIC: alert cooperative and oriented to person, place and time. Results & Data Results & Data ([facility]) Vital Signs (Past 12 Hours) Vital Signs Temp Pulse Pulse Resp BP Pulse Ox 10/13/21 10:55 37.2 C 71 19 101/65 97 10/13/21 08:00 91 H 10/13/21 07:33 36.9 C 92 H 16 125/83 94 10/13/21 03:13 37.9 C H 110 H 20 111/69 96 Laboratory Results Short CBC 10/13/21 Range/Units 10:09 WBC 5.77 (4.8-10.8) K/uL Hgb 10.2 L (12.0-16.0) g/dL Hct 34.3 L (37-47) % Plt Count 164 (130-400) K/uL [facility] 10/13/21 10:09 Sodium 139 Potassium 3.9 Chloride 111 H Carbon Dioxide 24 BUN 9 Creatinine 1.91 H Glucose 162 H Calcium 8.6 Medications Administered Current Inpatient Medications Acetaminophen (Acetaminophen 325 Mg Tab) 650 mg PO Q8H PRN PRN Reason: Pain 1-5 Stop: 11/10/21 21:33 Acetaminophen/Codeine Phosphate (Acetaminophen W/Codeine #3 1 Tab) 1 tab PO Q4H PRN PRN Reason: severe pain (6-10) Stop: 11/12/21 09:31 Last Admin: 10/13/21 10:06 Dose: 1 tab Documented by: Atorvastatin Calcium (Atorvastatin 40 Mg Tab) 40 mg PO QPM [facility] Stop: 11/11/21 20:59 Last Admin: 10/12/21 20:18 Dose: 40 mg Documented by: Clopidogrel Bisulfate (Clopidogrel Bisulfate 75 Mg Tab) 75 mg PO QPM MRALA Stop: 11/10/21 21:33 Last Admin: 10/12/21 20:17 Dose: 75 mg Documented by: Dextrose (Dextrose 50% 50 Ml Syringe) 25 - 50 ml IV UD PRN; Protocol PRN Reason: Hypoglycemia Protocol Stop: 11/10/21 19:30 Doxepin HCl (Doxepin Hcl 50 Mg Capsule) 50 mg PO HS MARLA Stop: 11/11/21 20:59 Last Admin: 10/12/21 20:21 Dose: 50 mg Documented by: Duloxetine HCl (Duloxetine Hcl 60 Mg Cap) 60 mg PO DAILY MARLA Stop: 11/12/21 08:59 Last Admin: 10/13/21 08:12 Dose: 60 mg Documented by: Fluticasone Furoate (Fluticasone Furoate 100mcg 14 Puffs/Inhaler) 1 puffs INH DAILY PRN PRN Reason: Shortness Of Breath Stop: 11/10/21 21:47 Last Admin: 10/13/21 08:11 Dose: 1 puffs Documented by: Glucagon (Glucagon For Inj 1 Mg Vial) 1 mg SQ UD PRN; Protocol PRN Reason: Hypoglycemia Protocol Stop: 11/10/21 19:30 Glucose (Glucose 10 Tabs/Tube) 4 - 8 tabs PO UD PRN; Protocol PRN Reason: Hypoglycemia Protocol Stop: 11/10/21 19:30 Glucose (Glucose 40% Gel 15 Gm Tube) 15 - 30 gm PO UD PRN; Protocol PRN Reason: Hypoglycemia Protocol Stop: 11/10/21 19:30 Heparin Sodium (Porcine) (Heparin Sod 5,000 Unit/0.5 Ml Vial) 5,000 units SQ Q8 MARLA Stop: 11/10/21 21:59 Last Admin: 10/13/21 05:05 Dose: Not Given Documented by: Ceftriaxone Sodium 2,000 mg/ (Dextrose) 70 mls @ 140 mls/hr IV Q24H MARLA Stop: 10/22/21 12:59 Last Infusion: 10/12/21 18:13 Dose: Infused Documented by: Insulin Aspart (Insulin Aspart Per Unit) 0 units SC ACHS MARLA Stop: 11/10/21 20:59 Last Admin: 10/13/21 12:08 Dose: Not Given Documented by: Insulin Glargine (Insulin Glargine Solostar 100 Units/Ml 3 Ml Pen) 5 units SC BID MARLA Stop: 11/10/21 20:59 Last Admin: 10/13/21 08:13 Dose: 5 units Documented by: Magnesium Oxide (Magnesium Oxide 400 Mg Tab) 400 mg PO HS [facility] Stop: 11/11/21 20:59 Last Admin: 10/12/21 20:18 Dose: 400 mg Documented by: Metoprolol Succinate (Metoprolol Succ 50mg Ext Rel Tab) 50 mg PO QAM MARLA Stop: 11/12/21 08:59 Last Admin: 10/13/21 08:11 Dose: 50 mg Documented by: Metoprolol Succinate (Metoprolol Succ 25mg Ext Rel Tab) 25 mg PO PM MARLA Stop: 11/11/21 20:59 Last Admin: 10/12/21 20:17 Dose: 25 mg Documented by: Miscellaneous (Carbohydrates For Hypoglycemia ) 15 - 30 gm PO UD PRN PRN Reason: Hypoglycemia Protocol Stop: 11/10/21 19:30 Ondansetron HCl (Ondansetron Inj 2 Mg/Ml 2 Ml Vial) 4 mg IV Q6H PRN PRN Reason: nausea, vomiting Stop: 11/10/21 19:44 Last Admin: 10/13/21 03:10 Dose: 4 mg Documented by: Oxcarbazepine (Oxcarbazepine 150 Mg Tablet) 300 mg PO BID [facility] Stop: 11/11/21 20:59 Last Admin: 10/13/21 08:11 Dose: 300 mg Documented by: Pantoprazole Sodium (Pantoprazole 40 Mg Tab) 40 mg PO BID [facility] Stop: 11/11/21 20:59 Last Admin: 10/13/21 08:12 Dose: 40 mg Documented by: Phenazopyridine HCl (Phenazopyridine Hcl 200 Mg Tab) 200 mg PO TID [facility] Stop: 11/11/21 13:59 Last Admin: 10/13/21 08:11 Dose: 200 mg Documented by: Umeclidinium/Vilanterol (Umeclidinium/Vilanterol 62.5/25mcg 7 Puffs/Inhaler) 1 puffs INH DAILY PRN PRN Reason: Shortness Of Breath Stop: 11/10/21 21:48 Last Admin: 10/13/21 08:10 Dose: 1 puffs Documented by: Vitamin D (Cholecalciferol 1,000 Units 25 Mcg Tab) 2,000 units PO QAM [facility] Stop: 11/12/21 08:59 Last Admin: 10/13/21 08:12 Dose: 2,000 units Documented by:
[2021-10-13] MEDS: cefTRIAXone SODIUM 2,000 MG in DEXTROSE 5% 50 ML IV SCH (17:44)
[2021-10-13] MEDS: METOPROLOL SUCC 25MG EXT REL TAB PO SCH (20:57)
[2021-10-13] MEDS: ATORVASTATIN 40 MG TAB PO SCH (20:57)
[2021-10-13] MEDS: DOXEPIN HCL 50 MG CAPSULE PO SCH (20:58)
[2021-10-13] MEDS: CLOPIDOGREL BISULFATE 75 MG TAB PO SCH (20:58)
[2021-10-13] MEDS: MAGNESIUM OXIDE 400 MG TAB PO SCH (20:58)
[2021-10-14] MEDS: HEPARIN SOD 5,000 UNIT/0.5 ML VIAL SQ SCH ×3 (05:44→21:32)
[2021-10-14] MEDS: ACETAMINOPHEN W/CODEINE #3 1 TAB PO PRN ×4 (05:47→23:46)
[2021-10-14] MEDS: METOPROLOL SUCC 50MG EXT REL TAB PO SCH (07:33)
[2021-10-14] MEDS: PHENAZOPYRIDINE HCL 200 MG TAB PO SCH ×3 (07:35→21:31)
--- NOTE | 2021-10-14 08:06 | Urology Progress Note ---
Date of Service October 14, 2021 Assessment & Plan (1) Ureteral calculus: (2) Obstructive pyelonephritis: (3) Renal colic: Plan: 65 y/o female with a complex past medical hx admitted with possible pyelonephritis in the setting of an obstructing 5mm left ureteral stone - POD #2 s/p Cystoscopy with left retrograde pyelogram, aspiration, and stent placement. - Pt subjectively feeling better today, pain has improved. - Tolerating the ureteral stent with minimal bother - Afebrile - Labs reviewed - Wbc 5.47, Creatinine 2.12 - Will continue to trend - UCx from admission negative for infection; Blood cultures prelim no growth x 48hours - Continues on IV Ceftriaxone - Intraoperative Left Renal pelvis urine aspirate final no growth. - Purvis catheter removed yesterday. Pt voiding spontaneously without issue. Continue to monitor, bladder scan as needed. - Continue supportive care and management per primary team. - Will continue to follow. Admission and Anticipated Discharge Date Admission Date: October 11, 2021 Supervising Physician Co-Signing Physician Notes I have discussed Ms. Nesbitt's case with NICHOL Rogers and agree with the above documentation. Mildly elevated creatinine today, would continue to monitor. If it keeps increasing, would consider renal/bladder ultrasound to make sure urinary tract is draining appropriately. Subjective Pt examined at bedside this AM. Awake, resting in bed on arrival. No fevers overnight. Still with left flank and LLQ pain, but reports this is mostly with urination and has significantly improved since yesterday. Purvis catheter removed yesterday. She is voiding spontaneously without difficulty. She reports dysuria, denies hematuria. Tolerating PO diet. No nausea or vomiting. She is moving her bowels. Review of Systems Constitutional: as per Subjective / HPI Gastrointestinal: as per Subjective / HPI Genitourinary: as per Subjective / HPI Physical Exam Constitutional: no acute distress Respiratory: no labored breathing and no audible wheezes Gastrointestinal (Abdomen): Inspection/Auscultation: abdomen normal to inspection Percussion/Palpation: + abdomen tender (Mild suprapubic/LLQ abdominal tenderness with palpation) and abdomen soft; no guarding Musculoskeletal: Head/Neck/Chest: normocephalic Skin: No visible rashes or lesions to exposed skin areas Neurologic: moves all extremities and awake Psychiatric: Orientation: alert, oriented x 3 and cooperative Results & Data ([place]) Vital Signs (Past 12 Hours) Vital Signs Temp Pulse Resp BP Pulse Ox 10/14/21 07:29 37.3 C 104 H 18 94/61 L 93 10/13/21 23:00 36.4 C L 90 22 105/66 91 10/13/21 20:51 91 H 111/75 93 PG Care Time/CCT Total # of Minutes Spent Total Time Spent with Patient: Total time spent is greater than 50% in coordination of care (as documented) at patient's floor/unit and/or counseling patient: Coding Level of Care Code 03649 Subseq Hosp Care Lvl 2 Diagnoses Ureteral calculus N20.1 Obstructive pyelonephritis N11.1 Renal colic N23
[2021-10-14] MEDS: CHOLECALCIFEROL 1,000 UNITS 25 MCG TAB PO SCH (08:43)
[2021-10-14] MEDS: DULoxetine HCL 60 MG CAP PO SCH (08:43)
[2021-10-14] MEDS: PANTOprazole 40 MG TAB PO SCH ×2 (08:43→21:31)
[2021-10-14] MEDS: OXcarbazepine 150 MG TABLET PO SCH ×2 (08:43→21:31)
[2021-10-14] MEDS: INSULIN GLARGINE SOLOSTAR 100 UNITS/ML 3 ML PEN SC SCH ×2 (08:45→21:22)
[2021-10-14] MEDS: INSULIN ASPART PER UNIT SC SCH ×4 (08:49→20:48)
[2021-10-14 15:40] LABS: Basophils # (auto) 0.01 K/uL (0-0.2); Basophils % (auto) 0.2 %; Eosinophils # (auto) 0.22 K/uL (0-0.5); Hematocrit (blood only) 29.7 % (37-47); Hemoglobin 8.8 g/dL (12.0-16.0); Immature Granulocytes # (auto) 0.02 K/uL (0.00-0.02); Immature Granulocytes % (auto) 0.4 %; Lymphocytes # (auto) 0.88 K/uL (1.2-3.4); Lymphocytes % (auto) 16.1 %; Mean Corpuscular Hemoglobin 29.5 pg (25-34); Mean Corpuscular Hgb Conc 29.6 g/dL (32-36); Mean Corpuscular Volume 99.7 fL (80-100); Mean Platelet Volume 10.2 fL (7.4-10.4); Monocytes # (auto) 0.89 K/uL (0.11-0.59); Monocytes % (auto) 16.3 %; Neutrophils # (auto) 3.45 K/uL (1.4-6.5); Platelet Count 158 K/uL (130-400); RDW Coefficient of Variation 14.7 % (11.5-14.5); RDW Standard Deviation 53.5 fL (36.4-46.3); Red Blood Count 2.98 M/uL (4.2-5.4); White Blood Count 5.47 K/uL (4.8-10.8)
[2021-10-14 15:58] LABS: BUN Creatinine Ratio 6.4 (10-20); Calcium 8.8 mg/dl (8.5-10.1); Creatinine Clr Calc Pharmacy 26.9 ml/min; Est GFR (African American) 27.2 ml/min; Est GFR (Non-African American) 23.5 ml/min; Potassium 3.6 mmol/L (3.5-5.1)
--- NOTE | 2021-10-14 16:50 | Hospitalist Progress Note ---
Date of Service October 14, 2021 Assessment & Plan (1) Obstructive pyelonephritis: (2) Ureteral calculus: (3) Complicated UTI (urinary tract infection): (4) Pain due to ureteral stent: Plan: 65yo F with a PMH of DM II, COPD, CKD III, HTN, bipolar disorder, chronic respiratory failure on home O2 (2L), laparoscopic colectomy total w/o proctectomy w/ ileostomy and ileoproctostomy in 2010 for colon Ca presented 10/11/21 w/ fever, chills, and abdominal pain. CT ABD/pelvis on admission showed 5 mm obstructing calculus just above the left vesicoureteral junction causing minimal left hydroureteronephrosis and possible evidence of pyelonephritis. Patient was febrile however no leukocytosis, normal lactic acid, stable vitals. Status post cystoscopy with left retrograde pyelogram aspiration and stent placement by Dr. Adam on 10/12 Patient had 2 negative urine cultures and negative blood cultures however given clinical picture concerning for infectious process, patient was started on ceftriaxone which has been continued (day 3). Would continue a short course of p.o. antibiotics at discharge. Purvis removed 10/13 Patient continues to have some stent discomfort with urination however improved with addition of Tylenol #3. Declines B&O suppository, continue as needed Pyridium. NSAIDs contraindicated 2/2 allergy. (5) Dehydration: Plan: Secondary to at least 3 days of intolerance to p.o. secondary to nausea and vomiting which have resolved. Received supportive care with IVF (6) CKD (chronic kidney disease), stage III: Plan: Baseline creatinine high 1's - low 2's Renal functions have remained stable and at baseline during hospitalization (7) Chronic respiratory failure with hypoxia: Plan: Stable, saturating well on chronic 2 L of oxygen (8) Morbid obesity with BMI of 40.0-44.9, adult: Plan: BMI 44.9 Lifestyle modifications encouraged (9) Diabetes mellitus, type 2: Plan: Hgb A1c 6.5 10/12/2021 Hold oral agents and utilize Lantus and NovoLog per protocol while hospitalized (10) Anemia: Plan: Hgb 11.6 --> 9.4 --> 10.2 --> 8.8 No signs of bleeding Possibly secondary to dilution Repeat CBC in a.m. and likely will need repeat as outpatient in PCP followup and pursue further investigation at that time as needed. (11) DVT prophylaxis: Plan: SQ heparin Dispo-Likely discharge home tomorrow. Patient reports she does not have a ride, case management notified. PT recommends the patient can return home with caregiver and spouse assistance. Admission and Anticipated Discharge Date Admission Date: October 11, 2021 Supervising Physician Co-Signing Physician Notes I have seen and examined the patient and have discussed the case with the provider above. I agree with the assessment and plan as stated. 65 yo patient with obstructive uropathy s/p stent. Reporting an improvement in her post op stent pain controlled with T3. She is otherwise doing well. Physical exam is unreamarkable and as above. Creat appears slightly elevated, will cont to monitor. Gaines, DO Subjective Patient seen and examined. Follow-up for obstructive pyelonephritis. Patient reports ongoing left flank and LLQ pain however somewhat improved from yesterday and seems to be only present with urination. Tolerating diet, denies nausea and vomiting. Has remained afebrile for > 24 hours. Denies chest pain or shortness of breath. Saturating well on chronic 2 L of oxygen. Hesitant to be discharged today. Review of Systems Review of Systems: ROS per HPI, all other systems reviewed and negative Physical Exam Constitutional: WD/WN, vitals as above Respiratory: normal respiratory effort, lungs clear to auscultation Cardiovascular: Rate/Rhythm: regular rate and regular rhythm Vessels: normal peripheral pulses Extremities: no edema Gastrointestinal (Abdomen): Percussion/Palpation: + abdomen tender (Mild LLQ) and abdomen soft Skin: no rashes, warm and dry Neurologic: no focal motor deficits Psychiatric: A+Ox3, euthymic affect Results & Data Results & Data ([facility]) Vital Signs (Past 12 Hours) Vital Signs Temp Pulse Resp BP Pulse Ox 10/14/21 14:25 36.7 C 107 H 18 94/68 L 93 10/14/21 12:24 113/70 10/14/21 10:38 96 10/14/21 07:29 37.3 C 104 H 18 94/61 L 93 Laboratory Results Short CBC 10/14/21 Range/Units 15:21 WBC 5.47 (4.8-10.8) K/uL Hgb 8.8 L (12.0-16.0) g/dL Hct 29.7 L (37-47) % Plt Count 158 (130-400) K/uL BMP 10/14/21 15:21 Sodium 136 Potassium 3.6 Chloride 107 Carbon Dioxide 21 BUN 14 D Creatinine 2.12 H Glucose 167 H Calcium 8.8
[2021-10-14] MEDS: cefTRIAXone SODIUM 2,000 MG in DEXTROSE 5% 50 ML IV SCH (17:29)
[2021-10-14] MEDS: MAGNESIUM OXIDE 400 MG TAB PO SCH (21:31)
[2021-10-14] MEDS: CLOPIDOGREL BISULFATE 75 MG TAB PO SCH (21:31)
[2021-10-14] MEDS: DOXEPIN HCL 50 MG CAPSULE PO SCH (21:31)
[2021-10-14] MEDS: METOPROLOL SUCC 25MG EXT REL TAB PO SCH (21:31)
[2021-10-14] MEDS: ATORVASTATIN 40 MG TAB PO SCH (21:31)
[2021-10-15] MEDS: HEPARIN SOD 5,000 UNIT/0.5 ML VIAL SQ SCH ×3 (05:40→19:53)
[2021-10-15] MEDS: ACETAMINOPHEN W/CODEINE #3 1 TAB PO PRN ×2 (05:47→13:04)
[2021-10-15 06:33] LABS: Hematocrit (blood only) 32.2 % (37-47); Hemoglobin 9.6 g/dL (12.0-16.0); Mean Corpuscular Hemoglobin 29.8 pg (25-34); Mean Corpuscular Hgb Conc 29.8 g/dL (32-36); Mean Platelet Volume 10.4 fL (7.4-10.4); Platelet Count 166 K/uL (130-400); RDW Coefficient of Variation 14.9 % (11.5-14.5); RDW Standard Deviation 54.8 fL (36.4-46.3); Red Blood Count 3.22 M/uL (4.2-5.4); White Blood Count 6.57 K/uL (4.8-10.8)
[2021-10-15 07:01] LABS: BUN Creatinine Ratio 6.8 (10-20); Calcium 9.3 mg/dl (8.5-10.1); Creatinine Clr Calc Pharmacy 23.8 ml/min; Est GFR (African American) 23.4 ml/min; Est GFR (Non-African American) 20.2 ml/min; Potassium 3.7 mmol/L (3.5-5.1)
--- NOTE | 2021-10-15 08:43 | Urology Progress Note ---
Date of Service October 15, 2021 Assessment & Plan (1) Ureteral calculus: (2) Renal colic: (3) Acute kidney injury: Plan: 65 y/o female with a complex past medical hx admitted with possible pyelonephritis in the setting of an obstructing 5mm left ureteral stone - POD #3 s/p Cystoscopy with left retrograde pyelogram, aspiration, and stent placement. - Pt subjectively feeling better this morning. - Still with mild left flank discomfort, likely stent related pain. - Afebrile. - Labs reviewed - Wbc 6.57, Creatinine up to 2.40 (2.12 yesterday). - UCx from admission negative for infection; Blood cultures prelim no growth x 48hours - Continues on IV Ceftriaxone. - Intraoperative Left Renal pelvis urine aspirate final no growth. - Pt voiding spontaneously without issue. Continue to monitor, bladder scan as needed. - Given elevation in creatinine, will obtain a renal ultrasound this morning to assess for hydronephrosis/obstruction. - Orders placed for urine sodium and creatinine for FENa. - Will change to clear liquid diet for now pending imaging results. - Continue supportive care and management per primary team. - Discussed plan with hospital team- Additional recommendations pending imaging and urine tests. - Will continue to follow. - Reviewed [facility] imaging, urine sodium and creatinine, and plan of care with Dr. Strong, on-call urologist. - [facility] with no hydronephrosis. - Urine sodium/creatinine reviewed - FENa calculation shows likely prerenal. - No additional intervention warranted at this time. - Continue supportive care and management per primary team. - Plan to D/C when medically stable per primary team with course of PO antibiotics, Tamsulosin, prn Pyridium and prn pain medication for stent management. - Expected clinical course reviewed, all questions answered. - Will arrange outpatient follow-up with our service for definitive stone management. Thank you for allowing us to participate in the acute care of Ms. Nesbitt. Please reconsult us with additional questions, concerns or changes in patient status. Admission and Anticipated Discharge Date Admission Date: October 11, 2021 Supervising Physician Co-Signing Physician Notes Discussed patient with ELIZABETH. Agree with plan. Patient with rising creatinine despite left ureteral stent placement. Repeat renal ultrasound showed no hydronephrosis and FeNa indicated it was likely prerenal. No further urologic intervention necessary. Subjective Pt examined at bedside this AM. Awake, resting in bed on arrival. No fevers. Still with left flank and LLQ pain, however states pain has improved since yesterday. She is voiding spontaneously without difficulty. Denies hematuria and dysuria. Feels she is emptying her bladder. Tolerating PO diet, no nausea or vomiting. Review of Systems Constitutional: as per Subjective / HPI Genitourinary: as per Subjective / HPI Physical Exam Constitutional: no acute distress Respiratory: no labored breathing and no audible wheezes Gastrointestinal (Abdomen): Inspection/Auscultation: abdomen normal to inspection Percussion/Palpation: + abdomen tender (Mild suprapubic/LLQ abdominal tenderness with palpation) and abdomen soft; no guarding Musculoskeletal: Head/Neck/Chest: normocephalic Skin: No visible rashes or lesions to exposed skin areas Neurologic: moves all extremities and awake Psychiatric: Orientation: alert, oriented x 3 and cooperative Results & Data ([facility]) Vital Signs (Past 12 Hours) Vital Signs Temp Pulse Resp BP BP Pulse Ox 10/15/21 07:12 36.9 C 98 H 18 108/71 93 10/15/21 05:47 36.6 C 105 H 20 102/61 92 10/14/21 22:45 37.1 C 106 H 26 H 102/59 L 97 10/14/21 21:38 107 H 110/72 PG Care Time/CCT Total # of Minutes Spent Total Time Spent with Patient: Total time spent is greater than 50% in coordination of care (as documented) at patient's floor/unit and/or counseling patient: Coding Level of Care Code 62953 Subseq Hosp Care Lvl 2 Diagnoses Ureteral calculus N20.1 Renal colic N23 Acute kidney injury N17.9
[2021-10-15] MEDS: OXcarbazepine 150 MG TABLET PO SCH ×2 (09:20→19:52)
[2021-10-15] MEDS: METOPROLOL SUCC 50MG EXT REL TAB PO SCH (09:20)
[2021-10-15] MEDS: PHENAZOPYRIDINE HCL 200 MG TAB PO SCH ×3 (09:20→19:52)
[2021-10-15] MEDS: PANTOprazole 40 MG TAB PO SCH ×2 (09:20→19:52)
[2021-10-15] MEDS: DULoxetine HCL 60 MG CAP PO SCH (09:20)
[2021-10-15] MEDS: CHOLECALCIFEROL 1,000 UNITS 25 MCG TAB PO SCH (09:21)
[2021-10-15] MEDS: INSULIN GLARGINE SOLOSTAR 100 UNITS/ML 3 ML PEN SC SCH ×2 (09:23→20:51)
[2021-10-15] MEDS: INSULIN ASPART PER UNIT SC SCH ×4 (09:23→20:39)
--- NOTE | 2021-10-15 11:07 | Ultrasound Report ---
ULTRASOUND KIDNEYS AND BLADDER CLINICAL HISTORY: Elevated creatinine. COMPARISON STUDY: Abdominal CT dated 10/11/2021. TECHNIQUE: Real-time, grayscale, and color flow sonography of the kidneys and bladder is performed. I mages are reviewed in the transverse and longitudinal planes. FINDINGS: Kidneys: The kidneys demonstrate cortical atrophy. Echotexture is normal. The right kidney measures 1 1.0 x 6.1 x 6.3 cm and the left kidney measures 10.8 x 6.8 x 6.5 cm. There is fullness of the left re nal collecting system without hydronephrosis. Bilateral shadowing calculi measure up to 7 mm. Bilater al renal cysts measure up to 5.1 cm. There is no sonographic evidence of contour deforming renal mass lesion. No perinephric fluid is identified. Bladder: The bladder is decompressed and not well evaluated. The bladder contains the distal end of a left ureteral stent. Both ureteral jets were seen. IMPRESSION: 1. The kidneys demonstrate cortical atrophy and are without hydronephrosis. 2. There is mild fullness of the left renal collecting system. A left ureteral stent is in place. 3. Bilateral nephrolithiasis. 4. The bladder was decompressed and not well assessed. ACT 112: Negative or not required by law. Electronically signed by: Caesar Yoon M.D. 10/15/2021 11:06 AM
[2021-10-15 11:18] LABS: Creatinine Urine Random 80.8 mg/dl
[2021-10-15] MEDS: cefTRIAXone SODIUM 2,000 MG in DEXTROSE 5% 50 ML IV SCH (16:46)
--- NOTE | 2021-10-15 16:50 | Hospitalist Progress Note ---
Date of Service October 15, 2021 Assessment & Plan (1) Obstructive pyelonephritis: (2) Ureteral calculus: (3) Complicated UTI (urinary tract infection): (4) Pain due to ureteral stent: Plan: 65yo F with a PMH of DM II, COPD, CKD III, HTN, bipolar disorder, chronic respiratory failure on home O2 (2L), laparoscopic colectomy total w/o proctectomy w/ ileostomy and ileoproctostomy in 2010 for colon Ca presented 10/11/21 w/ fever, chills, and abdominal pain. CT ABD/pelvis on admission showed 5 mm obstructing calculus just above the left vesicoureteral junction causing minimal left hydroureteronephrosis and possible evidence of pyelonephritis. Patient was febrile however no leukocytosis, normal lactic acid, stable vitals. Status post cystoscopy with left retrograde pyelogram aspiration and stent placement by Dr. Adam on 10/12 Patient had 2 negative urine cultures and negative blood cultures however given clinical picture concerning for infectious process, patient was started on ceftriaxone which has been continued (day 3). Would continue a short course of p.o. antibiotics at discharge. Purvis removed 10/13 Patient continues to have some stent discomfort with urination however improved with addition of Tylenol #3. Declines B&O suppository, continue as needed Pyridium. NSAIDs contraindicated 2/2 allergy. Urology repeated renal ultrasound to evaluate for possible hydronephrosis in setting of worsening renal function - no evidence of hydro No additional intervention warranted at this time- will arrange outpatient follow-up with our service for definitive stone management next week Per discussion with urology, plan to discharge with 5 day course of PO antibiotics, Tamsulosin, prn Pyridium and prn pain medication for stent management (5) Dehydration: Plan: Secondary to at least 3 days of intolerance to p.o. secondary to nausea and vomiting which have resolved. Received supportive care with IVF (6) CKD (chronic kidney disease), stage III: Plan: Baseline creatinine high 1's - low 2's since April 2021 Cr increased to 2.40 (from 2.1) overnight No evidence of hydronephrosis on repeat renal ultrasound Urine sodium/creatinine reviewed - FENa calculation shows likely prerenal Discussed with Dr. Niño of nephro, who recommends gentle fluids and monitoring overnight with repeat BMP in AM (7) Chronic respiratory failure with hypoxia: Plan: Stable, saturating well on chronic 2 L of oxygen (8) Morbid obesity with BMI of 40.0-44.9, adult: Plan: BMI 44.9 Lifestyle modifications encouraged (9) Diabetes mellitus, type 2: Plan: Hgb A1c 6.5 10/12/2021 Hold oral agents and utilize Lantus and NovoLog per protocol while hospitalized (10) Anemia: Plan: Hgb 11.6 --> 9.4 --> 10.2 --> 8.8 --> 9.6 No signs of bleeding (11) DVT prophylaxis: Plan: SQ heparin Dispo-Likely discharge home tomorrow. Patient reports she does not have a ride, case management notified. PT recommends the patient can return home with caregiver and spouse assistance. Admission and Anticipated Discharge Date Admission Date: October 11, 2021 Supervising Physician Co-Signing Physician Notes I have seen and examined the patient and have discussed the case with the provider above. I agree with the assessment and plan as stated. 65 yo patient with obstructive uropathy s/p stent. Reports no improvement in her post op pain despite T#3 and pyridium . Stopped T3 as this appears to make her ve3ry drowsy. Physical exam is unremarkable and as above. Creat again is elevated to 2.4, will cont to monitor. IVF added overnight. DO Forrest Harris Seen and examined in 356-1. Resting comfortably. No fevers. Still with left flank and LLQ pain, however states pain has improved since yesterday. She is voiding spontaneously without difficulty. No hematuria and dysuria. Feels she is emptying her bladder. No chills, headache, CP, SOB, N/V, diarrhea or constipation. Review of Systems Review of Systems: At least ten systems reviewed and negative except as noted in the HPI. Physical Exam Physical Exam: Gen: WD/WN, NAD, sitting in bedside chair, A&Ox3 HEENT: Normocephalic, atraumatic, conjunctivae moist, sclerae anicteric, mucous membranes moist Lung: Clear to Auscultation bilaterally, no wheezes/rales/rhonchi Heart: Regular rate, regular rhythm, no murmurs, rubs, or gallops Abdomen: Soft, mild LLQ TTP, ND +BS x 4 Extremities: no edema Skin: Warm, no rash Results & Data Results & Data ([facility]) Vital Signs (Past 12 Hours) Vital Signs Temp Pulse Resp BP BP Pulse Ox 10/15/21 15:59 36.6 C 87 16 101/69 94 10/15/21 07:12 36.9 C 98 H 18 108/71 93 10/15/21 05:47 36.6 C 105 H 20 102/61 92 Laboratory Results Short CBC 10/15/21 Range/Units 05:59 WBC 6.57 (4.8-10.8) K/uL Hgb 9.6 L (12.0-16.0) g/dL Hct 32.2 L (37-47) % Plt Count 166 (130-400) K/uL BMP 10/15/21 05:59 Sodium 133 L Potassium 3.7 Chloride 104 Carbon Dioxide 20 L BUN 16 Creatinine 2.40 H Glucose 123 H Calcium 9.3 Diagnostic Findings Abdomen/Pelvis CT 10/11/21 14:24 CT SCAN OF THE ABDOMEN AND PELVIS WITHOUT IV CONTRAST CLINICAL HISTORY: Right lower quadrant abdominal pain. COMPARISON STUDY: Abdominal CT dated 05/05/2021. TECHNIQUE: CT scan of the abdomen and pelvis is performed from the lung bases to the proximal femora. Images are reviewed in the axial, sagittal, and coronal planes. IV contrast was not administered for this examination. A dose lowering technique was utilized adhering to the principles of ALARA. CT DOSE: 817.21 mGy.cm FINDINGS: Lung bases: The heart is normal in size and without pericardial effusion. Costophrenic granulomas are present at the lung bases. The lung bases are otherwise clear. There is a moderate hiatal hernia. Liver: The unenhanced liver is top normal in size and demonstrates diffusely diminished attenuation consistent with hepatic steatosis. There is no intrahepatic biliary ductal dilatation. Gallbladder: Surgically absent noting clips in the gallbladder fossa. Spleen: Normal in size and attenuation. Pancreas: The unenhanced pancreas is moderately atrophic and grossly unremarkable. Adrenal glands: Unremarkable. Kidneys: There is asymmetric cortical atrophy of the left kidney as compared to the right. Foci of cortical scarring are noted throughout the left kidney. There is a 5 mm obstructing calculus in the distal left ureter just above the vesicoureteral junction seen on image #342. There is mild left hydronephrosis. There is urothelial thickening within the left renal pelvis with surrounding inflammation. There are least 4 additional nonobstructing left renal calculi which measure up to 8 mm. There is a 4 mm nonobstructing right renal calculus. There is fullness of the right renal collecting system without hydronephrosis. Bilateral renal cysts measure up to 6.5 cm. Abdominal vasculature: The abdominal aorta is normal in course and caliber noting mild to moderate atherosclerotic calcification. Bowel: There is postoperative change from subtotal colectomy with ileosigmoid anastomosis. No bowel obstruction is seen. A supraumbilical hernia on image #173 and a ventral hernia in the pelvis on image #330 contain nonobstructed small bowel loops. Peritoneum: There is no intraperitoneal free air or abdominal ascites. Lymphadenopathy: None. Pelvic viscera: The bladder is decompressed. There is pericholecystic inflammation. The uterus is surgically absent. No adnexal lesion is seen. Skeletal structures: The skeletal structures are osteopenic. Mild lumbosacral spondylosis is observed. No lytic or blastic lesions are seen. There are healed left-sided rib fractures. IMPRESSION: 1. There is a 5 mm obstructing calculus just above the left vesicoureteral junction. This causes minimal left hydroureteronephrosis. 2. Additional bilateral nonobstructing renal calculi as above. 3. The bladder is decompressed and there is significant pericystic inflammation. There is also urothelial thickening with surrounding inflammation involving the left renal pelvis. Correlate with clinical findings and urinalysis for evidence of cystitis/ascending infection. 4. Hepatic steatosis. 5. Ventral abdominal hernias contain nonobstructed segments of small bowel. 6. Moderate hiatal hernia. 7. Additional findings as above. ACT 112: Negative or not required by law. Electronically signed by: Caesar Yoon M.D. 10/11/2021 4:45 PM Chest X-Ray 10/11/21 16:48 SINGLE VIEW CHEST CLINICAL HISTORY: Sepsis. FINDINGS: An AP, portable, upright chest radiograph is compared to study dated 09/14/2021. The examination is degraded by portable technique and apical lordotic positioning. The cardiomediastinal silhouette is unremarkable. Chronic interstitial thickening is similar to previous. Mild atelectasis is noted at the lung bases. The lungs and pleural spaces are otherwise clear. No pneumothorax is seen. The skeletal structures are osteopenic. The bony thorax is grossly intact. IMPRESSION: No active disease in the chest. ACT 112: Negative or not required by law. Electronically signed by: Caesar Yoon M.D. 10/11/2021 5:58 PM Retrograde Pyelogram 10/12/21 00:00 FL retrograde includes kub CLINICAL HISTORY: CYSTO TECHNIQUE: 3 views were obtained with the C-arm in the OR with the above procedure. Total fluoroscopy time was 14.2 seconds. Total skin dose was 4.07 mGy. Comparison: None available at the time of this dictation. FINDINGS/IMPRESSION: Intraoperative images of retrograde pyelogram and stent placement were obtained. Please correlate with intraoperative fluoroscopy and operative report. ACT 112: Negative or not required by law. Electronically signed by: Yuan Jroge M.D. 10/12/2021 11:04 AM Renal Ultrasound 10/15/21 10:30 ULTRASOUND KIDNEYS AND BLADDER CLINICAL HISTORY: Elevated creatinine. COMPARISON STUDY: Abdominal CT dated 10/11/2021. TECHNIQUE: Real-time, grayscale, and color flow sonography of the kidneys and bladder is performed. Images are reviewed in the transverse and longitudinal planes. FINDINGS: Kidneys: The kidneys demonstrate cortical atrophy. Echotexture is normal. The right kidney measures 11.0 x 6.1 x 6.3 cm and the left kidney measures 10.8 x 6.8 x 6.5 cm. There is fullness of the left renal collecting system without hydronephrosis. Bilateral shadowing calculi measure up to 7 mm. Bilateral renal cysts measure up to 5.1 cm. There is no sonographic evidence of contour deforming renal mass lesion. No perinephric fluid is identified. Bladder: The bladder is decompressed and not well evaluated. The bladder contains the distal end of a left ureteral stent. Both ureteral jets were seen. IMPRESSION: 1. The kidneys demonstrate cortical atrophy and are without hydronephrosis. 2. There is mild fullness of the left renal collecting system. A left ureteral stent is in place. 3. Bilateral nephrolithiasis. 4. The bladder was decompressed and not well assessed. ACT 112: Negative or not required by law. Electronically signed by: Caesar Yoon M.D. 10/15/2021 11:06 AM
[2021-10-15] MEDS ORDERED: SODIUM CHLORIDE 0.9% 1000ML 1,000 ML IV SCH (17:45)
[2021-10-15] MEDS: MAGNESIUM OXIDE 400 MG TAB PO SCH (19:52)
[2021-10-15] MEDS: ATORVASTATIN 40 MG TAB PO SCH (19:52)
[2021-10-15] MEDS: CLOPIDOGREL BISULFATE 75 MG TAB PO SCH (19:52)
[2021-10-15] MEDS: DOXEPIN HCL 50 MG CAPSULE PO SCH (19:52)
[2021-10-15] MEDS: METOPROLOL SUCC 25MG EXT REL TAB PO SCH (19:53)
[2021-10-16] MEDS: HEPARIN SOD 5,000 UNIT/0.5 ML VIAL SQ SCH ×3 (05:43→23:58)
[2021-10-16 06:30] LABS: HCO3 ABG 21 mmol/L (19-24); Oxygen Saturation ABG 91.4 % (90-95); PCO2 ABG 59 mmHg (35-46); PO2 ABG 72 mmHg (80-95)
[2021-10-16 06:34] LABS: Allen Test POS (Pos)
[2021-10-16 06:36] LABS: pH ABG 7.16 (7.35-7.45)
[2021-10-16] MEDS ORDERED: SODIUM CHLORIDE 0.9% 1000ML 1,000 ML IV SCH (06:45)
[2021-10-16 06:49] LABS: Hematocrit (blood only) 30.4 % (37-47); Hemoglobin 8.9 g/dL (12.0-16.0); Mean Corpuscular Hemoglobin 29.7 pg (25-34); Mean Corpuscular Hgb Conc 29.3 g/dL (32-36); Mean Corpuscular Volume 101.3 fL (80-100); Mean Platelet Volume 10.8 fL (7.4-10.4); Platelet Count 188 K/uL (130-400); RDW Coefficient of Variation 14.7 % (11.5-14.5); RDW Standard Deviation 54.6 fL (36.4-46.3); White Blood Count 7.31 K/uL (4.8-10.8)
[2021-10-16 07:03] LABS: BUN Creatinine Ratio 6.4 (10-20); Calcium 9.2 mg/dl (8.5-10.1); Creatinine Clr Calc Pharmacy 18.4 ml/min; Est GFR (African American) 17.1 ml/min; Est GFR (Non-African American) 14.8 ml/min; Potassium 3.9 mmol/L (3.5-5.1)
[2021-10-16] MEDS ORDERED: Nursing to Pharmacy Communication SCH (07:45)
[2021-10-16] MEDS: INSULIN ASPART PER UNIT SC SCH ×3 (08:15→18:12)
[2021-10-16] MEDS ORDERED: VANCOMYCIN CONSULT ACTIVE PRN (08:21)
[2021-10-16] MEDS ORDERED: VANCOMYCIN HCL 2,000 MG in SODIUM CHLORIDE 0.9% 500 ML IV ONE (08:30)
--- NOTE | 2021-10-16 08:30 | XRay Report ---
XR chest 1V portable CLINICAL HISTORY: hypoxia TECHNIQUE: Single frontal radiograph of the chest was obtained. Comparison: Comparison is made to chest one view 10/31/2021 FINDINGS: No lines and tubes are seen. The cardiomediastinal silhouette is normal. There is prominence and ceph alization of the vasculature with Malik B lines seen. No evidence of pleural effusion or pneumothora x. IMPRESSION: Moderate pulmonary edema. ACT 112: Negative or not required by law. Electronically signed by: Yuan Jorge M.D. 10/16/2021 8:29 AM
[2021-10-16 08:53] LABS: Base Excess ABG -8.6 mEq/L (-9-1.8); HCO3 ABG 20 mmol/L (19-24); Oxygen Saturation ABG 97.7 % (90-95); PCO2 ABG 58 mmHg (35-46); PO2 ABG 130 mmHg (80-95)
[2021-10-16 09:03] LABS: Allen Test Pos (Pos)
[2021-10-16 09:10] LABS: pH ABG 7.16 (7.35-7.45)
[2021-10-16] MEDS: METOPROLOL SUCC 50MG EXT REL TAB PO SCH (09:12)
[2021-10-16] MEDS: PANTOprazole 40 MG TAB PO SCH ×2 (09:12→20:12)
[2021-10-16] MEDS: DULoxetine HCL 60 MG CAP PO SCH (09:12)
[2021-10-16] MEDS: CHOLECALCIFEROL 1,000 UNITS 25 MCG TAB PO SCH (09:12)
[2021-10-16] MEDS: PHENAZOPYRIDINE HCL 200 MG TAB PO SCH (09:12)
[2021-10-16] MEDS: OXcarbazepine 150 MG TABLET PO SCH ×2 (09:12→20:11)
[2021-10-16] MEDS: CEFEPIME 2,000 MG in SYRINGE 0 ML IV SCH (09:30)
[2021-10-16] MEDS ORDERED: SODIUM BICARBONATE 8.4% 150 MEQ in DEXTROSE 5% 1,000 ML IV SCH ×2 (10:00→10:15)
[2021-10-16] MEDS ORDERED: STAT IV STA (10:15)
--- NOTE | 2021-10-16 10:37 | CT Scan Report ---
CT abd pelvis wo con CLINICAL HISTORY: Fever TECHNIQUE: Helical axial images of the abdomen and pelvis were obtained. Automated dose lowering tech niques and/or adjustment according to patient size were utilized for this exam. This exam was perfor med without intravenous contrast. COMPARISON: Comparison is made to CT abdomen pelvis 10/31/2021 FINDINGS: Lower chest: Bibasilar atelectasis versus scarring is seen. Liver: Unremarkable. No focal lesions are seen. Gallbladder and biliary tree: Patient is status post cholecystectomy. Physiologic prominence of the b iliary ducts is noted. Pancreas: Fatty replacement of the pancreas is seen. Spleen: Unremarkable. Adrenals: Unremarkable. Kidneys and ureters: Subcentimeter hypodensities are too small to characterize. The left kidney is at rophic. There is a left nephroureteral stent with remaining pelviectasis. Nonobstructive stones are s een. Bladder: Purvis catheter is seen. Fat stranding is seen about the bladder. Reproductive organs: Unremarkable. Bowel: A hiatal hernia is seen. Patient status post bowel surgery. Lymph nodes Retroperitoneal: Unremarkable. Mesenteric: Unremarkable. Pelvic: Unremarkable. Peritoneum: Normal Vessels: Unremarkable. Abdominal wall: There is a small fat and bowel containing infraumbilical hernia. Bones: Degenerative changes in the visualized spine. IMPRESSION: 1. Left nephroureteral stent with remaining pelviectasis and left cortical thinning. Bilateral nephr olithiasis. 2. Fat stranding about a collapsed bladder drained by a Purvis catheter. Correlation with urinalysis is recommended to exclude urinary tract infection. 3. Additional findings as above. ACT 112: Negative or not required by law. Electronically signed by: Yuan Jorge M.D. 10/16/2021 10:35 AM
[2021-10-16] MEDS ORDERED: NOREPINEPHRINE/D5W 8 MG/508 ML IV ONE (10:42)
[2021-10-16] MEDS ORDERED: ALBUTEROL HFA 8 GM INHALER INH PRN (10:55)
[2021-10-16 10:58] LABS: Thyroid Stimulating Hormone 0.413 uIu/ml (0.300-4.500)
[2021-10-16] MEDS: SODIUM BICARBONATE 8.4% 150 MEQ in DEXTROSE 5% 1,000 ML IV SCH ×2 (11:19→22:49)
[2021-10-16] MEDS: SODIUM CHLORIDE 0.9% 1,000 ML IV SCH ×2 (11:19→20:12)
[2021-10-16] MEDS ORDERED: SODIUM BICARB 8.4% INJ 50 MEQ/50 ML SYR IV STA (11:42)
--- NOTE | 2021-10-16 11:55 | Pharmacy Report ---
Pharmacy Abx Dose Short Note - Date of Service October 16, 2021 - Assessment & Plan Assessment * 65 year old F receiving ceftriaxone for pyelonephritis from 10/11-10/15, broadened to cefepime and vancomycin on 10/16. New-onset fever noted x1 this AM. WBC stable. Repeat blood cultures pending. * PMH: ureteral stent placement on 10/12, current hospitalization >5 days, diabetes, COPD (home O2 2L), CKD III (baseline SCr 1.1 mg/dL) * Cultures * Urine culture from 10/11 with agnes * Urine/ureteral culture from 10/12 with no growth * Repeat blood cultures ordered today * PERRI noted with significant trend up in SCr / 24 hours Vancomycin * Start with 20 mg/kg loading dose * Ongoing vancomycin per level Plan * Vancomycin 2000 mg IV x1 * Random level with AM labs 10/17 Pharmacy will continue to follow and will adjust dose/frequency as necessary. Thank you.
--- NOTE | 2021-10-16 11:55 | Critical Care Consultation ---
Date of Consultation October 16, 2021 Assessment & Plan (1) Acute metabolic encephalopathy: (2) Acute kidney injury superimposed on chronic kidney disease: (3) Acute respiratory acidosis: (4) CKD (chronic kidney disease), stage III: --Acute metabolic encephalopathy Multifactorial Acute hypercapnia as well as metabolic acidosis playing a role Ammonia [address] head 10/16/2021 negative for any acute abnormality Covid-19 negative 10/11/2021 --Acute renal failure on CKD Monitor BUNs/creatinine Avoid nephrotoxic medication Follow-up urine lites --Pyelonephritis Continue with antibiotics Initial urine culture negative to date Repeat urine culture 10/16/2021 negative to date --Bipolar disorder On oxcarbazepine --History of anxiety/depression Hold all antidepressant medication for the time being --Diabetes type 2 Continue with ICU hypoglycemia protocol --Prophylaxis VTE: Heparin GI: Pantoprazole Lines: Peripheral Diet: N.p.o. Plan: Chest x-ray personally reviewed from today which is expiratory film. Does not show any clear infiltrate. Continue with BiPAP. I will give the patient 100 mg of bicarb stat followed by bicarb. Give normal saline 125 mils an hour for at least 12 hours. Keep a close eye on urine output No acute indication for dialysis Currently patient is saturating well while on BiPAP. She is not any respiratory stress Continue with BiPAP for the time being if there is any clinical deterioration in the respiratory status will intubate I have personally spent 63 minutes of critical care time in the direct management of this patient. This is a life/limb threatening event. This includes time spent evaluating patient, direct bedside care, chart review, placing orders, interpretation of diagnostic studies, discussion with consultants, patient, and family members, as well as other required patient management activities. This time is exclusive of all separately billable procedures, and teaching time and separate from and in addition to any other critical care service time. Please note the above document was generated using voice recognition software. It may contain grammatical, syntax or spelling errors. History of Present Illness Attending Physician: Johanna Harris DO History of Present Illness 65-year-old female presented to hospital with abdominal pain fever and chills. Fever was as high as 103.5 Patient was being treated for UTI/Michael Past medical history: Diabetes type 2, CKD stage III, bipolar disorder, hypertension, chronic hypoxic respiratory failure on 2 L oxygen at home, history of colon cancer in 2010 Patient was on the floor getting more obtunded in the last 24 hours. ABG showed pH of 7.16 with PCO2 of only 59. Bicarb was 21 in the serum Patient was put on BiPAP but no significant improvement in PCO2. ICU were consulted for encephalopathy At the time of examination patient was on BiPAP saturating 94-95% on 30% FiO2 She was not in any respiratory distress but she was not following any commands She only responded to sternal rub Patient had a Purvis catheter with reddish tinged urine most likely from the medication which she was taking History obtained from previous chart as well as signout from Dr. Harris Social history: Non-smoker, no illicit drug use. Allergies Allergy/AdvReac Type Severity Reaction Status Date / Time salicylates Allergy Severe SHORTNESS Verified 10/11/21 19:18 OF BREATH Iodinated Contrast Media Allergy Intermediate EYES Verified 10/11/21 19:18 SWELLING/Hives amoxicillin [From Augmentin] Allergy Mild Rash Verified 10/11/21 19:18 aspirin Allergy Mild FACIAL Verified 10/11/21 19:18 SWELLING clavulanic acid Allergy Mild Rash Verified 10/11/21 19:18 [From Augmentin] hydromorphone Allergy Mild RASH/ITCHIN Verified 10/11/21 19:18 G fentanyl Allergy itching/felt Verified 10/11/21 19:18 like throat closing meperidine AdvReac Intermediate ITCH Verified 10/11/21 19:18 morphine AdvReac Intermediate ITCH Verified 10/11/21 19:18 tramadol AdvReac Mild itch Verified 10/11/21 19:18 Home Medications Medication Instructions Recorded Confirmed Type atorvastatin 40 mg tablet (Lipitor) 40 mg PO QPM 07/12/18 10/11/21 History clopidogrel 75 mg tablet (Plavix) 75 mg PO QPM 07/12/18 10/11/21 History pantoprazole 40 mg tablet,delayed 40 mg PO BID 07/12/18 10/11/21 History release (Protonix) riboflavin (vitamin B2) 400 mg 400 mg PO QPM 07/12/18 10/11/21 History tablet cholecalciferol (vitamin D3) 50 2,000 unit PO QAM 05/16/19 10/11/21 History mcg (2,000 unit) capsule (Vitamin D3) albuterol sulfate 90 mcg/actuation 2 puff INHALATION Q4H PRN 07/21/19 10/11/21 History aerosol inhaler magnesium oxide 400 mg PO HS 10/05/19 10/11/21 History fluticasone fur. 100 mcg-umeclid 1 inh INHALATION DAILY PRN 12/11/20 10/11/21 History 62.5 mcg-vilant 25 mcg inhalat.powder (Trelegy Ellipta) metoprolol succinate 25 mg 25 mg PO PM tab 12/11/20 10/11/21 History tablet,extended release 24 hr metoprolol succinate 50 mg 50 mg PO QAM 12/11/20 10/11/21 History tablet,extended release 24 hr glipizide 2.5 mg tablet, extended 2.5 mg PO PM 04/29/21 10/11/21 History release 24 hr (Glucotrol XL) ondansetron 4 mg disintegrating 4 mg PO Q8H PRN #10 tab 06/02/21 10/11/21 Rx tablet doxepin 50 mg capsule 50 mg PO HS 09/14/21 10/11/21 History acetaminophen 500 mg tablet 1,000 mg PO AMHS 10/11/21 10/11/21 History (Tylenol Extra Strength) duloxetine 60 mg capsule,delayed 60 mg PO DAILY 10/11/21 10/11/21 History release oxcarbazepine 300 mg tablet 300 mg PO BID 10/11/21 10/11/21 History Patient History Medical History Acute UTI (urinary tract infection) has presently per pt Anxiety Asthma well controlled per pt, rare inh use CHF (congestive heart failure) follows with Dr. Singh Chronic back pain Chronic headaches Chronic renal insufficiency stage 3, following with [facility] nephrology ([place]) Chronic respiratory failure with hypoxia Was on home oxygen in the past but no longer using at this time CKD (chronic kidney disease) COPD (chronic obstructive pulmonary disease) Deep vein thrombosis LLE - COULD NOT RECALL DATE - REPORTS SHE WAS TREATED AT [facility] W/ BLOOD THINNERS Depression Diabetes mellitus, type 2 GERD (gastroesophageal reflux disease) History of colon cancer 2012 S/P BOWEL RESECTION. History of COVID-27 Sep 2020 HTN (hypertension) Hyperlipidemia Mood disorder Morbid obesity with BMI of 40.0-44.9, adult Myocardial Infarction 06/2016--> [facility] -- CARDIAC CATH --> normal coronary anatomy without coronary obstruction but Plavix started per [facility] discharge summary On anticoagulant therapy plavix daily CALI (obstructive sleep apnea) Poor historian Seizure Pt states "i think i had them a long time ago". no other information. No hx of seizures noted in records Sinus tachycardia Follows with cardio Surgical History H/O hand surgery RIGHT History of appendectomy History of bilateral cataract extraction History of blepharoplasty History of cardiac cath 03/2018 - [place] - DENIES STENTS/ANGIOPLASTY - [facility] - FOLLOWS W/ DR. SINGH History of closure of ileostomy History of colectomy due to colon cancer History of colonoscopy History of cystoscopy History of esophageal dilatation History of esophagogastroduodenoscopy (EGD) History of hysterectomy History of kidney surgery at age 9 yrs "something was wrong and had to fix it" History of lithotripsy History of tooth extraction History of total abdominal hysterectomy and bilateral salpingo-oophorectomy Hx of cholecystectomy Family History Other Breast cancer Social History Smoking Status: Never smoker Second Hand Exposure: Yes (in past); Hx Alcohol Use: No Hx Substance Use: No Preferred Language: Danish Communication Ability: Effective Education Research Analyst Required: No Beliefs That Will Affect Care: Church marital status: Current Living Situation: Alone Current Living Situation Comment: Home health Feels Safe at Home: Yes Assistive Devices: BiPap and Oxygen - Continuous Review of Systems Review of Systems: Unobtainable due to reduced consciousness Physical Exam Physical Exam: Constitutional: No acute distress HEENT: PERRLA Respiratory system: Decreased air entry bilaterally, no wheeze, no rhonchi, positive mild crackles bilateral lower lobe CVS: S1-S2 positive, no murmurs or gallops Abdomen: Soft, nontender, nondistended, positive bowel sounds x4, obese Extremities: +2 pulses bilaterally radialis/ dorsalis pedis, no cyanosis, no edema Neuro: On BiPAP, responding to sternal rub Psych: Unable to assess G/U: Positive Purvis Skin: no rashes, warm and dry Lymphatic: no cervical or axillary lymphadenopathy Results & Data Results & Data ([facility]) Vital Signs (Past 12 Hours) Vital Signs Temp Pulse Pulse Resp BP Pulse Ox 10/16/21 10:33 94 H 22 94 10/16/21 07:30 36.4 C L 90 18 98/62 L 96 10/16/21 06:59 94 H 23 95 10/16/21 05:30 38.2 C H 105 H 18 99/60 L 93 Laboratory Results 10/16/21 05:41 10/16/21 05:41 Coding Level of Care Code Critical Care 1st 30-74 mins Diagnoses Acute metabolic encephalopathy G93.41 Acute kidney injury superimposed on chronic kidney disease N17.9; N18.9 Acute respiratory acidosis E87.2 CKD (chronic kidney disease), stage III N18.30 Time Spent (min) 63
[2021-10-16 13:04] LABS: Potassium Random Urine 20.4 mmol/L
--- NOTE | 2021-10-16 13:27 | Hospitalist Progress Note ---
Date of Service October 16, 2021 Assessment & Plan (1) Acute metabolic encephalopathy: (2) Obstructive pyelonephritis: (3) Ureteral calculus: (4) Complicated UTI (urinary tract infection): (5) Pain due to ureteral stent: Plan: This is a 65yo F with a PMH of DM II, COPD, CKD III, HTN, bipolar disorder, chronic respiratory failure on home O2 (2L), laparoscopic colectomy total w/o proctectomy w/ ileostomy and ileoproctostomy in 2010 for colon Ca presented 10/11/21 w/ fever, chills, and abdominal pain. CT ABD/pelvis on admission showed 5 mm obstructing calculus just above the left vesicoureteral junction causing minimal left hydroureteronephrosis and possible evidence of pyelonephritis. Status post cystoscopy with left retrograde pyelogram aspiration and stent placement by Dr. Adam on 10/12 Patient had 2 negative urine cultures and negative blood cultures however given clinical picture concerning for infectious process, patient has remained on Rocephin Patient continues to have some stent discomfort with urination however improved with addition of Tylenol #3. Declines B&O suppository, continue as needed Pyridium. NSAIDs contraindicated 2/2 allergy. Hernandez removed on 10/13. Urology repeated renal ultrasound to evaluate for possible hydronephrosis on 10/15 in setting of worsening renal function - no evidence of hydro At time of discharge, will need urology follow up with PO antibiotics, Tamsulosin, prn Pyridium and prn pain medication for stent management Significant clinical decline as of AM on 10/16/21 - transferred to ICU for closer monitoring due to obtunded state with respiratory acidosis with pH of 7.16, Also febrile and hypotensive Blood cultures obtained, abx broadened to cefepime and vanco (vanco discontinued after negative mrsa swab) Urology repeated CT abd/pelvis showing left nephroureteral stent with remaining pelviectasis and left cortical thinning. Bilateral nephrolithiasis Per urology, no hydro or obstruction. Bladder is decompressed. No urology intervention at this time. Repeat urine cultures Obtaining a head CT wo con due to reported fall by RN. Appeared that patient slid off of commode but unwitnessed (6) Acute respiratory acidosis: Plan: Obtunded this AM, 10/16/21. ABG with pH of 7.16, pCO2 of 59, bicarb 20. Also with worsening renal function History of CALI but not on CPAP - on chronic 2L NC O2 Last received narcotics on yesterday 10/15 at 1300 Bipap started at 0600 - continue. Management per collar starcher Bicarb drip initiated (7) Acute kidney injury superimposed on chronic kidney disease: Plan: Worsening renal function in past few days from 2.1 --> 2.4 --> 3.[address] abd/pelvis 10/16 showing left nephroureteral stent with remaining pelviectasis and left cortical thinning. No hydro or obstruction. Bladder is decompressed Consulting nephrology for further recommendations (8) Chronic respiratory failure with hypoxia: Plan: Stable, saturating well on chronic 2 L of oxygen (9) Morbid obesity with BMI of 40.0-44.9, adult: Plan: BMI 44.9 Lifestyle modifications encouraged (10) Diabetes mellitus, type 2: Plan: Hgb A1c 6.5 10/12/2021 Hold oral agents and utilize Lantus and NovoLog per protocol while hospitalized (11) Anemia: Plan: Hgb 11.6 --> 9.4 --> 10.2 --> 8.8 --> 9.6 --> 8.9 No signs of bleeding (12) DVT prophylaxis: Plan: SQ heparin Dispo- Due to worsened clinical status early this AM, patient transferred to ICU. Admission and Anticipated Discharge Date Admission Date: October 11, 2021 Supervising Physician Co-Signing Physician Notes I have seen and examined the patient and have discussed the case with the cate lori above. I agree with the assessment and plan as stated. 65 yo F s/p L ureteral stent placement on 10/12 after obstructive pyelonephritis noted. She has remained on ceftriaxone and fevers subsided. Continued to have post op stent pain that was only somewhat improved with Tylenol #3. PERRI worsened yesterday and seemed more drowsy. T#3 was stopped and overnight she became obtunded and hypoxic escalating to BIPAP with an acute respiratory acidosis present. There is suspicion of additional metabolic acidosis as CO2 is not as elevated as would be expected with degree of acidemia present. Nephrology consulted to assist with this and worsening Perri. Noncontrast CT a/p was performed without acute changes. She remains on BIPAP in the ICU at this point, started on a bicarb drip. Antibiotics were empirically broadened to Vanc and Cefepime and repeat cultures were obtained. Physical exam reveals obtunded patient on BIPAP. Heart rate is regular with regular rhythm, S1/2 heard without murmur. Pulmonary auscultation not ideal but clear to auscultation throughout. Abdomen is soft, NTND. No peripheral edema present and she is warm and well-perfused. After initial discussion with collar starcher, I changed BIPAP settings from 12/6 to 15/6 and repeated the ABG. There was no change in the acidemia. Transferred to ICU for further workup and treatment with possible intubation. DO Forrest Harris Patient examined in 365 around 0720 this morning. Reports of increased lethargy early this morning with patient no longer able to get out of bed to use commode. Torque Tester evaluated at bedside and ordered ABG, revealing respiratory acidosis with pH of 7.1. Bipap initiated around 0600. When evaluated at 0720, patient obtunded and not following commands. Patient noted to be febrile and hypotensive at this time. Blood cultures drawn, antibiotics broadened to Cefepime and vanco. Made NPO and hernandez catheter re-inserted per urology. Discussed with Dr. Doss, who accepted patient for transfer to ICU for further management. ROS unobtainable due to reduced consciousness. Review of Systems Review of Systems: Unobtainable due to reduced consciousness Physical Exam Physical Exam: Gen: WD/WN, NAD, lying in bed, obese, obtunded, responsive to painful stimuli only, not following basic commands, bipap mask in place HEENT: Normocephalic, atraumatic, conjunctivae moist, sclerae anicteric, mucous membranes moist Lung: Coarse breath sounds bilaterally Heart: Regular rate, regular rhythm, no murmurs, rubs, or gallops Abdomen: Soft, NT, ND +BS x 4 : Hernandez cather Extremities: no edema Skin: Warm, no rash Results & Data Results & Data ([facility]) Vital Signs (Past 12 Hours) Vital Signs Temp Pulse Pulse Resp BP Pulse Ox 10/16/21 10:33 94 H 22 94 10/16/21 07:30 36.4 C L 90 18 98/62 L 96 10/16/21 06:59 94 H 23 95 10/16/21 05:30 38.2 C H 105 H 18 99/60 L 93 Laboratory Results Short CBC 10/16/21 Range/Units 05:41 WBC 7.31 (4.8-10.8) K/uL Hgb 8.9 L (12.0-16.0) g/dL Hct 30.4 L (37-47) % Plt Count 188 (130-400) K/uL BMP 10/16/21 10/16/21 05:41 14:57 Sodium 135 L 139 Potassium 3.9 4.3 Chloride 105 109 H Carbon Dioxide 21 22 BUN 20 H 21 H Creatinine 3.11 H D 3.27 H Glucose 91 123 H Calcium 9.2 8.0 L Diagnostic Findings Abdomen/Pelvis CT 10/11/21 14:24 CT SCAN OF THE ABDOMEN AND PELVIS WITHOUT IV CONTRAST CLINICAL HISTORY: Right lower quadrant abdominal pain. COMPARISON STUDY: Abdominal CT dated 05/05/2021. TECHNIQUE: CT scan of the abdomen and pelvis is performed from the lung bases to the proximal femora. Images are reviewed in the axial, sagittal, and coronal planes. IV contrast was not administered for this examination. A dose lowering technique was utilized adhering to the principles of ALARA. CT DOSE: 817.21 mGy.cm FINDINGS: Lung bases: The heart is normal in size and without pericardial effusion. Costophrenic granulomas are present at the lung bases. The lung bases are otherwise clear. There is a moderate hiatal hernia. Liver: The unenhanced liver is top normal in size and demonstrates diffusely diminished attenuation consistent with hepatic steatosis. There is no intrahepatic biliary ductal dilatation. Gallbladder: Surgically absent noting clips in the gallbladder fossa. Spleen: Normal in size and attenuation. Pancreas: The unenhanced pancreas is moderately atrophic and grossly unremarkable. Adrenal glands: Unremarkable. Kidneys: There is asymmetric cortical atrophy of the left kidney as compared to the right. Foci of cortical scarring are noted throughout the left kidney. There is a 5 mm obstructing calculus in the distal left ureter just above the vesicoureteral junction seen on image #342. There is mild left hydronephrosis. There is urothelial thickening within the left renal pelvis with surrounding inflammation. There are least 4 additional nonobstructing left renal calculi which measure up to 8 mm. There is a 4 mm nonobstructing right renal calculus. There is fullness of the right renal collecting system without hydronephrosis. Bilateral renal cysts measure up to 6.5 cm. Abdominal vasculature: The abdominal aorta is normal in course and caliber noting mild to moderate atherosclerotic calcification. Bowel: There is postoperative change from subtotal colectomy with ileosigmoid anastomosis. No bowel obstruction is seen. A supraumbilical hernia on image #173 and a ventral hernia in the pelvis on image #330 contain nonobstructed small bowel loops. Peritoneum: There is no intraperitoneal free air or abdominal ascites. Lymphadenopathy: None. Pelvic viscera: The bladder is decompressed. There is pericholecystic inflammation. The uterus is surgically absent. No adnexal lesion is seen. Skeletal structures: The skeletal structures are osteopenic. Mild lumbosacral spondylosis is observed. No lytic or blastic lesions are seen. There are healed left-sided rib fractures. IMPRESSION: 1. There is a 5 mm obstructing calculus just above the left vesicoureteral junction. This causes minimal left hydroureteronephrosis. 2. Additional bilateral nonobstructing renal calculi as above. 3. The bladder is decompressed and there is significant pericystic inflammation. There is also urothelial thickening with surrounding inflammation involving the left renal pelvis. Correlate with clinical findings and urinalysis for evidence of cystitis/ascending infection. 4. Hepatic steatosis. 5. Ventral abdominal hernias contain nonobstructed segments of small bowel. 6. Moderate hiatal hernia. 7. Additional findings as above. ACT 112: Negative or not required by law. Electronically signed by: Caesar Yoon M.D. 10/11/2021 4:45 PM Chest X-Ray 10/11/21 16:48 SINGLE VIEW CHEST CLINICAL HISTORY: Sepsis. FINDINGS: An AP, portable, upright chest radiograph is compared to study dated 09/14/2021. The examination is degraded by portable technique and apical lordotic positioning. The cardiomediastinal silhouette is unremarkable. Chronic interstitial thickening is similar to previous. Mild atelectasis is noted at the lung bases. The lungs and pleural spaces are otherwise clear. No pneumothorax is seen. The skeletal structures are osteopenic. The bony thorax is grossly intact. IMPRESSION: No active disease in the chest. ACT 112: Negative or not required by law. Electronically signed by: Caesar Yoon M.D. 10/11/2021 5:58 PM Retrograde Pyelogram 10/12/21 00:00 FL retrograde includes kub CLINICAL HISTORY: CYSTO TECHNIQUE: 3 views were obtained with the C-arm in the OR with the above procedure. Total fluoroscopy time was 14.2 seconds. Total skin dose was 4.07 mGy. Comparison: None available at the time of this dictation. FINDINGS/IMPRESSION: Intraoperative images of retrograde pyelogram and stent placement were obtained. Please correlate with intraoperative fluoroscopy and operative report. ACT 112: Negative or not required by law. Electronically signed by: Yuan Jorge M.D. 10/12/2021 11:04 AM Renal Ultrasound 10/15/21 10:30 ULTRASOUND KIDNEYS AND BLADDER CLINICAL HISTORY: Elevated creatinine. COMPARISON STUDY: Abdominal CT dated 10/11/2021. TECHNIQUE: Real-time, grayscale, and color flow sonography of the kidneys and bladder is performed. Images are reviewed in the transverse and longitudinal planes. FINDINGS: Kidneys: The kidneys demonstrate cortical atrophy. Echotexture is normal. The right kidney measures 11.0 x 6.1 x 6.3 cm and the left kidney measures 10.8 x 6.8 x 6.5 cm. There is fullness of the left renal collecting system without hydronephrosis. Bilateral shadowing calculi measure up to 7 mm. Bilateral renal cysts measure up to 5.1 cm. There is no sonographic evidence of contour deforming renal mass lesion. No perinephric fluid is identified. Bladder: The bladder is decompressed and not well evaluated. The bladder contains the distal end of a left ureteral stent. Both ureteral jets were seen. IMPRESSION: 1. The kidneys demonstrate cortical atrophy and are without hydronephrosis. 2. There is mild fullness of the left renal collecting system. A left ureteral stent is in place. 3. Bilateral nephrolithiasis. 4. The bladder was decompressed and not well assessed. ACT 112: Negative or not required by law. Electronically signed by: Caesar Yoon M.D. 10/15/2021 11:06 AM Abdomen/Pelvis CT 10/16/21 07:35 CT abd pelvis wo con CLINICAL HISTORY: Fever TECHNIQUE: Helical axial images of the abdomen and pelvis were obtained. Automa griselda dose lowering techniques and/or adjustment according to patient size were utilized for this exam. This exam was performed without intravenous contrast. COMPARISON: Comparison is made to CT abdomen pelvis 10/31/2021 FINDINGS: Lower chest: Bibasilar atelectasis versus scarring is seen. Liver: Unremarkable. No focal lesions are seen. Gallbladder and biliary tree: Patient is status post cholecystectomy. Physiologic prominence of the biliary ducts is noted. Pancreas: Fatty replacement of the pancreas is seen. Spleen: Unremarkable. Adrenals: Unremarkable. Kidneys and ureters: Subcentimeter hypodensities are too small to characterize. The left kidney is atrophic. There is a left nephroureteral stent with remaining pelviectasis. Nonobstructive stones are seen. Bladder: Hernandez catheter is seen. Fat stranding is seen about the bladder. Reproductive organs: Unremarkable. Bowel: A hiatal hernia is seen. Patient status post bowel surgery. Lymph nodes Retroperitoneal: Unremarkable. Mesenteric: Unremarkable. Pelvic: Unremarkable. Peritoneum: Normal Vessels: Unremarkable. Abdominal wall: There is a small fat and bowel containing infraumbilical hernia. Bones: Degenerative changes in the visualized spine. IMPRESSION: 1. Left nephroureteral stent with remaining pelviectasis and left cortical thinning. Bilateral nephrolithiasis. 2. Fat stranding about a collapsed bladder drained by a Hernandez catheter. Correlation with urinalysis is recommended to exclude urinary tract infection. 3. Additional findings as above. ACT 112: Negative or not required by law. Electronically signed by: Yuan Jorge M.D. 10/16/2021 10:35 AM Chest X-Ray 10/16/21 07:39 XR chest 1V portable CLINICAL HISTORY: hypoxia TECHNIQUE: Single frontal radiograph of the chest was obtained. Comparison: Comparison is made to chest one view 10/31/2021 FINDINGS: No lines and tubes are seen. The cardiomediastinal silhouette is normal. There is prominence and cephalization of the vasculature with Malik B lines seen. No evidence of pleural effusion or pneumothorax. IMPRESSION: Moderate pulmonary edema. ACT 112: Negative or not required by law. Electronically signed by: Yuan Jorge M.D. 10/16/2021 8:29 AM
[2021-10-16 15:26] LABS: BUN Creatinine Ratio 6.3 (10-20); Creatinine Clr Calc Pharmacy 17.5 ml/min; Est GFR (African American) 16.1 ml/min; Est GFR (Non-African American) 13.9 ml/min; Magnesium 2.1 mg/dl (1.8-2.4); Phosphorus 5.5 mg/dl (2.5-4.9); Potassium 4.3 mmol/L (3.5-5.1)
--- NOTE | 2021-10-16 16:09 | Urology Progress Note ---
Date of Service October 16, 2021 Assessment & Plan (1) Obstructive pyelonephritis: (2) Acute kidney injury: (3) S/P ureteral stent placement: Plan: 65 y/o female with a complex past medical hx admitted with possible obstructive pyelonephritis in the setting of an obstructing 5mm left ureteral stone - Plan of care and CT imaging reviewed with Dr. Adam, on-call urologist. - POD #4 s/p Cystoscopy with left retrograde pyelogram, aspiration, and stent placement. - Pt unfortunately developed respiratory acidosis, fever, and was hypotensive this morning and was transferred to the ICU. - CTAP obtained - No hydronephrosis or obstruction noted; Bladder decompressed by Purvis catheter. - No further urologic intervention necessary at this time. - Afebrile at present -Tmax 38.2 at 0530 this morning. - Labs reviewed - Wbc 7.31, Hemoglobin 8.9, Creatinine up to 3.27 - Continue to trend. - UCx from admission negative for infection - Recommend repeat UC&S. - Blood cultures from admission prelim no growth x 48hours; Repeat BCx obtained and pending- Antibiotics broadened to Cefepime - Intraoperative Left Renal pelvis urine aspirate from 3 final no growth. - Recommend maintaining Purvis catheter for maximum drainage. - Continue supportive care, antibiotic therapy, and close monitoring per primary team. - Will continue to follow peripherally, please contact us with any further questions or concerns. Admission and Anticipated Discharge Date Admission Date: October 11, 2021 Subjective Pt examined at bedside this afternoon. Pt developed respiratory acidosis, fever and hypotension earlier this morning and was transferred to the ICU. Pt obtunded. Not following commands. Purvis intact and draining. Bipap mask in place. Review of Systems Review of Systems: Unobtainable due to reduced consciousness Physical Exam Constitutional: + obese Respiratory: Bipap mask in place Gastrointestinal (Abdomen): Inspection/Auscultation: abdomen normal to inspection Musculoskeletal: Head/Neck/Chest: normocephalic Skin: Warm and dry. Neurologic: + obtunded Genitourinary: Purvis catheter intact Results & Data ([facility]) Vital Signs (Past 12 Hours) Vital Signs Temp Pulse Pulse Resp BP BP Pulse Ox 10/16/21 14:34 20 94 10/16/21 13:47 134/82 99 10/16/21 13:30 102/80 10/16/21 13:15 102 H 14 94 10/16/21 13:00 136/96 95 10/16/21 12:45 121/75 10/16/21 12:30 133/86 10/16/21 12:15 124/74 10/16/21 12:00 102/77 10/16/21 11:45 120/87 10/16/21 11:30 115/83 10/16/21 11:28 98/59 L 95 10/16/21 11:15 86/66 L 95 10/16/21 11:00 37.2 C 107/62 94 10/16/21 10:33 94 H 22 94 10/16/21 07:30 36.4 C L 90 18 98/62 L 96 10/16/21 06:59 94 H 23 95 10/16/21 05:30 38.2 C H 105 H 18 99/60 L 93 PG Care Time/CCT Total # of Minutes Spent Total Time Spent with Patient: Total time spent is greater than 50% in coordination of care (as documented) at patient's floor/unit and/or counseling patient: Coding Level of Care Code 22722 Subseq Hosp Care Lvl 2 Diagnoses Acute kidney injury N17.9 Obstructive pyelonephritis N11.1 S/P ureteral stent placement Z96.0
--- NOTE | 2021-10-16 16:42 | CT Scan Report ---
HEAD CT NONCONTRAST CT DOSE: 773.57 mGy.cm HISTORY: Altered mental status. Fall. TECHNIQUE: Multiaxial CT images of the head were performed without the use of intravenous contrast. A utomated exposure control was utilized for this study. A dose lowering technique was utilized adheri ng to the principles of ALARA. Comparison: Head CT 09/17/2020. Findings: Mild mucosal thickening within the right sphenoid sinus. The right mastoid air cells are cl ear. There are a few partially opacified left peripheral mastoid air cells. The calvarium and skull b ase are intact. The ventricles and sulci are within normal limits. There is no mass, hematoma, midlin e shift, or acute infarct. Impression: No acute intracranial abnormality. ACT 112: Negative or not required by law. Electronically signed by: Marcell Marquez M.D. 10/16/2021 4:40 PM
--- NOTE | 2021-10-16 17:55 | Nephrology Consultation ---
Date of Consultation October 16, 2021 Assessment & Plan (1) Acute kidney injury superimposed on chronic kidney disease: stage one nonoliguric perri on ckd 4 baseline creatinine 2. acidemia as be low; chemistries mostly acceptable though emerging hyperchloremia w/ resuscitation. CT this am w/o obstruction -agree w/ d/c pyridium which is a/w PERRI -dose vanco by level only if continued -f/u pending cxs -bid-tid bmp -caution w/ fluid resuscitation -no indication for discussing dialysis (2) Acidemia: combined respiratory and to lesser degree metabolic acidosis -cont bipap -should not need much bicarb supplementation History of Present Illness Reason for Consultation: worsening renal failure Requesting Physician: Dr Harris Attending Physician: Johanna Harris, History of Present Illness 65 y/o F whom I'm asked to see for worsening renal failure was admitted here 10/11 for obstructive pyelonephritis and moved to ICU today for altered MS, acidemia, F, worsening renal failure. On 10/12 she underwent cystoscopy w/ L renal stent placement. PMH includes HTN, DM2, CKD 4 in 2020 w/ sCreat ranging high ones, COPD, bipolar disorder, class 3 obesity, obesity hypoventilation/CALI, chronic respiratory failure on 2L home , hx of stress induced cardiomyopathy 2015 during hospitalization which resolved, 2010 and needed transient dialysis, laparoscopic total colectomy w/o prostatectomy and w/ ileoproctostomy for colon CA; recurrent L ureteral obstruction from stones. admitted here 04/2021 for sepsis after stent exchange. her baseline creatinine is high ones.; presented w/ creatinine 2 in setting of no po x 3 days prior to admission. her renal function was at baseline until 10/14 when it started to climb > at 2.4 yesterday, 3.1 today and 3.3 this pm. pH on ABG this am was 7.16 w/ pc02 58 and bicarb 20. she is not oliguric. she is on tid pyridium. In the ICU plan is for 2LNS after 500 NS bolus and concomitant bicarb gtt. Pt was also started on bipap. she is on cefepime and vanco - had 2 gm vanco thsi am. Allergies Allergy/AdvReac Type Severity Reaction Status Date / Time salicylates Allergy Severe SHORTNESS Verified 10/11/21 19:18 OF BREATH Iodinated Contrast Media Allergy Intermediate EYES Verified 10/11/21 19:18 SWELLING/Hives amoxicillin [From Augmentin] Allergy Mild Rash Verified 10/11/21 19:18 aspirin Allergy Mild FACIAL Verified 10/11/21 19:18 SWELLING clavulanic acid Allergy Mild Rash Verified 10/11/21 19:18 [From Augmentin] hydromorphone Allergy Mild RASH/ITCHIN Verified 10/11/21 19:18 G fentanyl Allergy itching/felt Verified 10/11/21 19:18 like throat closing meperidine AdvReac Intermediate ITCH Verified 10/11/21 19:18 morphine AdvReac Intermediate ITCH Verified 10/11/21 19:18 tramadol AdvReac Mild itch Verified 10/11/21 19:18 Home Medications Medication Instructions Recorded Confirmed Type atorvastatin 40 mg tablet (Lipitor) 40 mg PO QPM 07/12/18 10/11/21 History clopidogrel 75 mg tablet (Plavix) 75 mg PO QPM 07/12/18 10/11/21 History pantoprazole 40 mg tablet,delayed 40 mg PO BID 07/12/18 10/11/21 History release (Protonix) riboflavin (vitamin B2) 400 mg 400 mg PO QPM 07/12/18 10/11/21 History tablet cholecalciferol (vitamin D3) 50 2,000 unit PO QAM 05/16/19 10/11/21 History mcg (2,000 unit) capsule (Vitamin D3) albuterol sulfate 90 mcg/actuation 2 puff INHALATION Q4H PRN 07/21/19 10/11/21 History aerosol inhaler magnesium oxide 400 mg PO HS 10/05/19 10/11/21 History fluticasone fur. 100 mcg-umeclid 1 inh INHALATION DAILY PRN 12/11/20 10/11/21 History 62.5 mcg-vilant 25 mcg inhalat.powder (Trelegy Ellipta) metoprolol succinate 25 mg 25 mg PO PM tab 12/11/20 10/11/21 History tablet,extended release 24 hr metoprolol succinate 50 mg 50 mg PO QAM 12/11/20 10/11/21 History tablet,extended release 24 hr glipizide 2.5 mg tablet, extended 2.5 mg PO PM 04/29/21 10/11/21 History release 24 hr (Glucotrol XL) ondansetron 4 mg disintegrating 4 mg PO Q8H PRN #10 tab 06/02/21 10/11/21 Rx tablet doxepin 50 mg capsule 50 mg PO HS 09/14/21 10/11/21 History acetaminophen 500 mg tablet 1,000 mg PO AMHS 10/11/21 10/11/21 History (Tylenol Extra Strength) duloxetine 60 mg capsule,delayed 60 mg PO DAILY 10/11/21 10/11/21 History release oxcarbazepine 300 mg tablet 300 mg PO BID 10/11/21 10/11/21 History Patient History Medical History Acute UTI (urinary tract infection) has presently per pt Anxiety Asthma well controlled per pt, rare inh use CHF (congestive heart failure) follows with Dr. Singh Chronic back pain Chronic headaches Chronic renal insufficiency stage 3, following with [facility] nephrology ([place]) Chronic respiratory failure with hypoxia Was on home oxygen in the past but no longer using at this time CKD (chronic kidney disease) COPD (chronic obstructive pulmonary disease) Deep vein thrombosis LLE - COULD NOT RECALL DATE - REPORTS SHE WAS TREATED AT [facility] W/ BLOOD THINNERS Depression Diabetes mellitus, type 2 GERD (gastroesophageal reflux disease) History of colon cancer 2012 S/P BOWEL RESECTION. History of COVID-27 Sep 2020 HTN (hypertension) Hyperlipidemia Mood disorder Morbid obesity with BMI of 40.0-44.9, adult Myocardial Infarction 06/2016--> [facility] -- CARDIAC CATH --> normal coronary anatomy without coronary obstruction but Plavix started per [facility] discharge summary On anticoagulant therapy plavix daily CALI (obstructive sleep apnea) Poor historian Seizure Pt states "i think i had them a long time ago". no other information. No hx of seizures noted in records Sinus tachycardia Follows with cardio Surgical History H/O hand surgery RIGHT History of appendectomy History of bilateral cataract extraction History of blepharoplasty History of cardiac cath 03/2018 - [place] - DENIES STENTS/ANGIOPLASTY - [facility] - FOLLOWS W/ DR. SINGH History of closure of ileostomy History of colectomy due to colon cancer History of colonoscopy History of cystoscopy History of esophageal dilatation History of esophagogastroduodenoscopy (EGD) History of hysterectomy History of kidney surgery at age 9 yrs "something was wrong and had to fix it" History of lithotripsy History of tooth extraction History of total abdominal hysterectomy and bilateral salpingo-oophorectomy Hx of cholecystectomy Family History Other Breast cancer Social History Smoking Status: Never smoker Second Hand Exposure: Yes (in past); Hx Alcohol Use: No Hx Substance Use: No Preferred Language: Citizen Of [place] Communication Ability: Effective Mine Surveyor Required: No Beliefs That Will Affect Care: Yazidi marital status: Current Living Situation: Alone Current Living Situation Comment: Home health Feels Safe at Home: Yes Assistive Devices: BiPap and Oxygen - Continuous Review of Systems Review of Systems: Unobtainable due to reduced consciousness Physical Exam Constitutional: well developed, well nourished, + morbidly obese and + lethargic (on bipap) Eyes: EOM intact bilaterally ENMT: Ears: no external ear abnormality Nose: no external nose abnormality Mouth: + dry oral mucous membranes Neck: no nuchal rigidity Respiratory: normal respiratory effort Auscultation: + diminished lung sounds Cardiovascular: Rate/Rhythm: regular rhythm and + tachycardic Extremities: no edema Gastrointestinal (Abdomen): Inspection/Auscultation: normal bowel sounds Percussion/Palpation: abdomen soft; abdomen nontender Musculoskeletal: Extremities: strength 5/5 throughout Skin: no rashes, warm and dry Neurologic: gomez, fluent speech, no tremor Genitourinary: hernandez w/ ample orange sanchez urine Results & Data ([facility]) Vital Signs (Past 12 Hours) Vital Signs Temp Pulse Pulse Resp BP BP Pulse Ox 10/16/21 16:00 105 H 10/16/21 14:57 105 H 22 95 10/16/21 14:34 20 94 10/16/21 13:47 134/82 99 10/16/21 13:30 102/80 10/16/21 13:15 102 H 14 94 10/16/21 13:00 136/96 95 10/16/21 12:45 121/75 10/16/21 12:30 133/86 10/16/21 12:15 124/74 10/16/21 12:00 102/77 01/07/22 11:45 120/87 10/16/21 11:30 115/83 10/16/21 11:28 98/59 L 95 10/16/21 11:15 86/66 L 95 10/16/21 11:00 37.2 C 107/62 94 10/16/21 10:33 94 H 22 94 10/16/21 07:30 36.4 C L 90 18 98/62 L 96 10/16/21 06:59 94 H 23 95 Laboratory Results 10/16/21 05:41 10/16/21 14:57 Diagnostic Findings cxr > plm edema head CT no acute process
[2021-10-16] MEDS: ATORVASTATIN 40 MG TAB PO SCH (20:10)
[2021-10-16] MEDS: CLOPIDOGREL BISULFATE 75 MG TAB PO SCH (20:11)
[2021-10-16] MEDS: MAGNESIUM OXIDE 400 MG TAB PO SCH (20:11)
[2021-10-17] MEDS: INSULIN ASPART PER UNIT SC SCH ×4 (00:04→18:59)
[2021-10-17 00:54] LABS: Calcium 8.1 mg/dl (8.5-10.1); Creatinine Clr Calc Pharmacy 18.8 ml/min; Est GFR (African American) 17.7 ml/min; Est GFR (Non-African American) 15.2 ml/min; Magnesium 2.1 mg/dl (1.8-2.4); Phosphorus 5.6 mg/dl (2.5-4.9)
[2021-10-17 00:57] LABS: Potassium 3.4 mmol/L (3.5-5.1)
[2021-10-17] MEDS: SODIUM CHLORIDE 0.9% 1000ML 1,000 ML IV SCH ×2 (01:43→18:30)
[2021-10-17] MEDS: POTASSIUM CHLORIDE / WTR 10 MEQ/100 ML PLCT IV SCH ×2 (01:50→02:54)
[2021-10-17 04:59] LABS: iSTAT Allen Test Pass; iSTAT Arterial Blood Gas HCO3 26 meg/L (19-24); iSTAT Arterial Blood Gas pCO2 81 mmHg (35-46); iSTAT Arterial Blood Gas pH 7.12 (7.35-7.45); iSTAT Arterial Blood Gas pO2 91 mmHg (80-95); iSTAT Carbon Dioxide 29 mmol/L (24-31); iSTAT FiO2 30 %; iSTAT Site L Radial
[2021-10-17] MEDS ORDERED: RAPID SEQUENCE INDUCTION BAG ONE ×2 (05:35→09:47)
[2021-10-17 05:58] LABS: BUN Creatinine Ratio 6.3 (10-20); Calcium 8.1 mg/dl (8.5-10.1); Creatinine Clr Calc Pharmacy 19.4 ml/min; Est GFR (African American) 18.3 ml/min; Est GFR (Non-African American) 15.8 ml/min; Magnesium 2.1 mg/dl (1.8-2.4); Phosphorus 5.5 mg/dl (2.5-4.9); Potassium 3.8 mmol/L (3.5-5.1)
[2021-10-17] MEDS ORDERED: MIDAZOLAM HCL 125 MG/250 ML BAG IV PRN (06:03)
[2021-10-17] MEDS ORDERED: STAT IV Infusion **Titration per Protocol STA ×2 (06:03→10:53)
[2021-10-17] MEDS ORDERED: MIDAZOLAM BOLUS FROM BAG IV PRN (06:03)
[2021-10-17 06:35] LABS: Hemoglobin 8.5 g/dL (12.0-16.0); Mean Corpuscular Hemoglobin 29.5 pg (25-34); Mean Corpuscular Hgb Conc 29.3 g/dL (32-36); Mean Corpuscular Volume 100.7 fL (80-100); Platelet Count 191 K/uL (130-400); RDW Coefficient of Variation 14.6 % (11.5-14.5); RDW Standard Deviation 53.9 fL (36.4-46.3); Red Blood Count 2.88 M/uL (4.2-5.4); White Blood Count 6.62 K/uL (4.8-10.8)
--- NOTE | 2021-10-17 06:35 | Procedure Note ---
Procedure Note Date of Service October 17, 2021 Note Procedure: Arterial Line Placement Attending: Dr. Doss APC: Tiago Malin PA-C Indication: Hemodynamic monitoring Anesthesia: Lidocaine 1% Emergent Consent implied in the setting of clinical deterioration and need for close hemodynamic monitoring, ABG monitoring, frequent lab draws, etc. A time-out was completed verifying correct patient, procedure, site, positioning, and implant(s) or special equipment if applicable. Allens test was performed to ensure adequate perfusion. Patients LEFT wrist was prepped and draped in the usual sterile fashion. Ultrasound guidance was used to aid needle placement. A 20g Arrow arterial line was introduced into the LEFT Radial artery. Catheter was threaded, and the needle was removed with appropriate blood return. Good waveform was observed. The patient tolerated the procedure well. Confir mation of placement with ultrasound. Blood Loss: Minimal Complications: None Procedural Ultrasound Guidance: Procedure Date: 10/17/2021 Indication: Hemodynamic Monitoring, Frequent ABGs/Lab draws. Attending: Dr. Doss APC: Tiago Malin PA-C Artery Identified: YES Line confirmed in Artery with ultrasound: YES Complications: NONE Patient tolerated procedure: WELL Coding CPT Codes Tubes, Drains, and Vasc Access - Tubes, Drains, and Vasc Access: [id number] Place Catheter In Artery ([id number]) [facility] [place] Procedure Codes (Charges) Tubes, Drains, and Vasc Access Procedure 1: Tubes, Drains, and Vasc Access: [id number] Place Catheter In Artery
[2021-10-17 06:43] LABS: iSTAT Arterial Blood Gas HCO3 26 meg/L (19-24); iSTAT Arterial Blood Gas pCO2 76 mmHg (35-46); iSTAT Arterial Blood Gas pH 7.14 (7.35-7.45); iSTAT Arterial Blood Gas pO2 119 mmHg (80-95); iSTAT Carbon Dioxide 28 mmol/L (24-31); iSTAT FiO2 30 %; iSTAT Site Art Line
[2021-10-17] MEDS: HEPARIN SOD 5,000 UNIT/0.5 ML VIAL SQ SCH ×3 (06:50→23:01)
[2021-10-17 07:46] LABS: Basophils # (auto) 0.01 K/uL (0-0.2); Basophils % (auto) 0.2 %; Eosinophils # (auto) 0.15 K/uL (0-0.5); Eosinophils % (auto) 2.3 %; Immature Granulocytes # (auto) 0.08 K/uL (0.00-0.02); Immature Granulocytes % (auto) 1.2 %; Lymphocytes # (auto) 0.63 K/uL (1.2-3.4); Lymphocytes % (auto) 9.5 %; Monocytes # (auto) 1.02 K/uL (0.11-0.59); Monocytes % (auto) 15.4 %; Neutrophils # (auto) 4.73 K/uL (1.4-6.5); Neutrophils % (auto) 71.4 %
--- NOTE | 2021-10-17 08:28 | Nephrology Progress Note ---
Date of Service October 17, 2021 Assessment & Plan (1) Acute kidney injury superimposed on chronic kidney disease: Plan: improving stage one nonoliguric perri on ckd 4 baseline creatinine 2. acidemia as below; chemistries mostly acceptable though at risk for hyperchloremia w/ resuscitation. CT this am w/o obstruction -agree w/ d/c pyridium which is a/w PERRI -dose vanco by level only if continued -f/u pending cxs -q12-24 hr bmp -caution w/ fluid resuscitation -no indication for discussing dialysis (2) Acidemia: Plan: combined respiratory and to lesser degree metabolic acidosis -as per critical care Admission and Anticipated Discharge Date Admission Date: October 11, 2021 Subjective intubated this am for altered MS Review of Systems Review of Systems: Unobtainable due to endotracheal tube Physical Exam Constitutional: well developed, well nourished, + morbidly obese and + mechanically ventilated Eyes: EOM intact bilaterally ENMT: Ears: no external ear abnormality Nose: no external nose abnormality Mouth: + dry oral mucous membranes Neck: no nuchal rigidity Respiratory: normal respiratory effort Auscultation: + diminished lung sounds Cardiovascular: Rate/Rhythm: regular rhythm and + tachycardic Extremities: no edema Gastrointestinal (Abdomen): Inspection/Auscultation: normal bowel sounds Percussion/Palpation: abdomen soft; abdomen nontender Musculoskeletal: Extremities: strength 5/5 throughout Skin: no rashes, warm and dry Neurologic: sedated Results & Data ([facility]) Vital Signs (Past 12 Hours) Vital Signs Pulse Resp BP Pulse Ox 10/17/21 04:00 29 H 94 10/17/21 02:56 90 29 H 94 10/17/21 01:40 91 H 30 H 100 10/17/21 01:30 90 25 H 99 10/17/21 01:20 91 H 23 100 10/17/21 01:10 89 20 100 10/17/21 01:00 89 30 H 126/71 100 10/17/21 00:50 90 25 H 98 10/17/21 00:40 89 22 100 10/17/21 00:30 89 28 H 93 10/17/21 00:20 93 H 27 H 98 10/17/21 00:10 88 22 97 10/17/21 00:00 91 H 23 118/80 98 10/16/21 23:59 89 10/16/21 23:50 93 H 15 97 10/16/21 23:40 89 22 99 10/16/21 23:30 89 14 100 10/16/21 23:20 92 H 18 99 10/16/21 23:10 91 H 17 100 10/16/21 23:00 92 H 15 125/70 100 10/16/21 22:50 90 17 100 10/16/21 22:40 88 17 100 10/16/21 22:30 90 23 100 10/16/21 22:20 90 23 100 10/16/21 22:10 90 23 100 10/16/21 22:00 85 17 112/79 100 10/16/21 21:50 92 H 27 H 100 10/16/21 21:40 90 19 100 10/16/21 21:30 93 H 18 100 10/16/21 21:20 93 H 19 100 10/16/21 21:10 92 H 19 99 10/16/21 21:00 91 H 17 100/68 100 10/16/21 20:50 92 H 31 H 100 10/16/21 20:40 92 H 28 H 100 10/16/21 20:30 93 H 18 100 Laboratory Results 10/17/21 05:22 10/17/21 05:22 ABG this am reviewed
--- NOTE | 2021-10-17 08:53 | Pharmacy Report ---
Pharmacy Abx Dose Short Note - Date of Service October 17, 2021 - Assessment & Plan Assessment * 65 year old F receiving ceftriaxone for pyelonephritis from 10/11-10/15, broadened to cefepime and vancomycin on 10/16. * 10/16 New-onset fever Patient obtunded and not following commands, hypotensive patient transferred to ICU for further management. * PMH: ureteral stent placement on 10/12, current hospitalization >5 days, diabetes, COPD (home O2 2L), CKD III (baseline SCr 1.1 mg/dL) * Cultures * Urine culture from 10/11 with agnes * Urine/ureteral culture from 10/12 with no growth * Repeat blood cultures ordered 10/16 pending * PERRI noted with significant trend up in SCr past 72 hours, nephrology consult Vancomycin * Random level 11.1mg/ml today Plan * Vancomycin 1500 mg IV x1 now * Random level with AM labs 10/18 * Continue dosing based on levels d/t PERRI Cefepime * Cefepime 2g IV Q24H for CrCl 11-29ml/min Pharmacy will continue to follow and will adjust dose/frequency as necessary. Thank you.
[2021-10-17] MEDS ORDERED: VANCOMYCIN HCL 1,500 MG in SODIUM CHLORIDE 0.9% 500 ML IV ONE (09:30)
--- NOTE | 2021-10-17 09:33 | Hospitalist Progress Note ---
Date of Service October 17, 2021 Assessment & Plan (1) Acute metabolic encephalopathy: (2) Obstructive pyelonephritis: (3) Ureteral calculus: (4) Complicated UTI (urinary tract infection): (5) Pain due to ureteral stent: Plan: 65 yo F with DM II, COPD, CKD III, HTN, bipolar disorder, chronic respiratory failure on home O2 (2L), laparoscopic colectomy total w/o proctectomy w/ ileostomy and ileoproctostomy in 2010 for colon Ca presented 10/11/21 w/ fever, chills, and abdominal pain. CT ABD/pelvis on admission showed 5 mm obstructing calculus just above the left vesicoureteral junction causing minimal left hydroureteronephrosis and possible evidence of pyelonephritis. S/p cystoscopy with left retrograde pyelogram aspiration and stent placement by Dr. Adam on 10/12 Patient had 2 negative urine cultures and negative blood cultures however given clinical picture concerning for infectious process, patient has remained on Rocephin Patient continued to have some stent discomfort with urination however improved with addition of Tylenol #3. Purvis removed on 10/13. Urology repeated renal ultrasound to evaluate for possible hydronephrosis on 10/15 in setting of worsening renal function - no evidence of hydro Significant clinical decline as of AM on 10/16/21 - transferred to ICU for closer monitoring due to obtunded state with respiratory acidosis with pH of 7.16, Also febrile and hypotensive Blood cultures obtained, abx broadened to cefepime and vanco (vanco discontinued after negative mrsa swab) Urology repeated CT abd/pelvis showing left nephroureteral stent with remaining pelviectasis and left cortical thinning. Bilateral nephrolithiasis Per urology, no hydro or obstruction. Bladder is decompressed. No urology intervention at this time. Repeat urine cultures Obtaining a head CT wo con due to reported fall by RN. Appeared that patient slid off of commode but unwitnessed. CT head negative Patient was started on BiPAP, however this morning, still significant respiratory acidosis, with low pH and elevated PCO2. Also patient continues to be obtunded therefore patient was intubated earlier today 10/17/21 (6) Acute respiratory acidosis: Plan: Obtunded AM, 10/16/21. ABG with pH of 7.16, pCO2 of 59, bicarb 20. Also with worsening renal function History of CALI but not on CPAP - on chronic 2L NC O2 Last received narcotics on 10/15 at 1300 Bipap started at 0600 - continue. Management per vegetable vendor Bicarb drip initiated Despite being on BiPAP, patient obtunded on 18 a.m., with low pH, and elevated PCO2, therefore decision made to intubate the patient. (7) Acute kidney injury superimposed on chronic kidney disease: Plan: Worsening renal function in past few days from 2.1 --> 2.4 --> 3.[address] abd/pelvis 10/16 showing left nephroureteral stent with remaining pelviectasis and left cortical thinning. No hydro or obstruction. Bladder is de compressed Consulting nephrology for further recommendations (8) Chronic respiratory failure with hypoxia: Plan: Baseline - chronic 2 L of oxygen Currently intubated due to altered mental status, respiratory acidosis (9) Morbid obesity with BMI of 40.0-44.9, adult: Plan: BMI 44.9 Lifestyle modifications encouraged (10) Diabetes mellitus, type 2: Plan: Hgb A1c 6.5 10/12/2021 Hold oral agents and utilize Lantus and NovoLog per protocol while hospitalized (11) Anemia: Plan: Hgb 11.6 --> 9.4 --> 10.2 --> 8.8 --> 9.6 --> 8.9 No signs of bleeding (12) DVT prophylaxis: Plan: SQ heparin Dispo - ICU. Admission and Anticipated Discharge Date Admission Date: October 11, 2021 Subjective Patient seen in follow-up of altered mental status Initially admitted for pyelonephritis, underwent cystoscopy and stent placement on October 12 Yesterday however patient was transferred to ICU, as she was obtunded, pH low, and CO2 elevated. She was started on BiPAP however without much improvement this morning. Therefore patient was intubated in ICU earlier today. Review of Systems Review of Systems: Unobtainable due to cognitive status and Unobtainable due to endotracheal tube Physical Exam Physical Exam: Constitutional:L morbidly obese F, intubated Eyes: EOM intact bilater ally ENMT: Ears: no external ear abnormality N ose: no external n ose abnormality M outh: + dry oral m ucous membranes Neck: R IJ placed Respiratory: + diminished lung sounds Cardiovascular:L Rate/Rhythm: regul ar rhythm Gastrointestinal ( Abdomen): normal bowel sound s, soft, obese Musculoskeletal: no LE edema Skin: no rashes, warm an d dry Neurologic: sedated Results & Data Results & Data ([facility]) Vital Signs (Past 12 Hours) Vital Signs Temp Pulse Resp BP Pulse Ox 10/17/21 08:00 37.0 C 89 98 10/17/21 04:00 29 H 94 10/17/21 02:56 90 29 H 94 10/17/21 01:40 91 H 30 H 100 10/17/21 01:30 90 25 H 99 10/17/21 01:20 91 H 23 100 10/17/21 01:10 89 20 100 10/17/21 01:00 89 30 H 126/71 100 10/17/21 00:50 90 25 H 98 10/17/21 00:40 89 22 100 10/17/21 00:30 89 28 H 93 10/17/21 00:20 93 H 27 H 98 10/17/21 00:10 88 22 97 10/17/21 00:00 91 H 23 118/80 98 10/16/21 23:59 89 10/16/21 23:50 93 H 15 97 10/16/21 23:40 89 22 99 10/16/21 23:30 89 14 100 10/16/21 23:20 92 H 18 99 10/16/21 23:10 91 H 17 100 10/16/21 23:00 92 H 15 125/70 100 10/16/21 22:50 90 17 100 10/16/21 22:40 88 17 100 10/16/21 22:30 90 23 100 10/16/21 22:20 90 23 100 10/16/21 22:10 90 23 100 10/16/21 22:00 85 17 112/79 100 10/16/21 21:50 92 H 27 H 100 10/16/21 21:40 90 19 100 Laboratory Results 10/17/21 10/17/21 10/17/21 Range/Units 06:30 05:51 05:22 WBC (4.8-10.8) K/uL RBC (4.2-5.4) M/uL Hgb (12.0-16.0) g/dL Hct (37-47) % MCV (80-100) fL MCH (25-34) pg MCHC (32-36) g/dL RDW Std Deviation (36.4-46.3) fL RDW Coeff of Teresa (11.5-14.5) % Plt Count (130-400) K/uL MPV (7.4-10.4) fL Immature Gran % (Auto) % Neut % (Auto) % Lymph % (Auto) % Porter % (Auto) % Eos % (Auto) % Baso % (Auto) % Neut # (Auto) (1.4-6.5) K/uL Lymph # (Auto) (1.2-3.4) K/uL Porter # (Auto) (0.11-0.59) K/uL Eos # (Auto) (0-0.5) K/uL Baso # (Auto) (0-0.2) K/uL Immature Gran # (Auto) (0.00-0.02) K/uL Sample Site Art Line POC pH 7.14 L* (7.35-7.45) POC pCO2 76 H (35-46) mmHg POC pO2 119 H (80-95) mmHg POC HCO3 26 H (19-24) glenna/L POC Total CO2 28 (24-31) mmol/L POC Base Excess -4.0 (-9-1.8) glenna/L POC ABG O2 Sat 97.0 H (90-95) % Gabriele Test NA O2 Delivery Device BIPAP POC O2 Rate 20 POC FiO2 30 % IPAP 20 Sodium 138 (136-145) mmol/L Potassium 3.8 (3.5-5.1) mmol/L Chloride 107 (98-107) mmol/L Carbon Dioxide 25 (21-32) mmol/L Anion Gap 6.0 (3-11) BUN 19 H (7-18) mg/dl Creatinine 2.95 H (0.6-1.2) mg/dl Est Cr Clr Drug Dosing 19.4 ml/min Est GFR ( Amer) 18.3 ml/min Est GFR (Non-Af Amer) 15.8 ml/min BUN/Creatinine Ratio 6.3 L (10-20) Glucose 132 H (70-99) mg/dl POC Glucose 124 H (70-99) mg/dl Osmolality (280-300) mOsm/kg Lactate (0.4-2.0) mmol/L Calcium 8.1 L (8.5-10.1) mg/dl Phosphorus 5.5 H (2.5-4.9) mg/dl Magnesium 2.1 (1.8-2.4) mg/dl Ammonia (11-32) umol/L NT-Pro-B Natriuret Pep (0-900) pg/ml TSH (0.300-4.500) uIu/ml Urine Osmolality (500-800) mOsm/kg Ur Random Potassium mmol/L Ur Random Chloride mmol/L Ur Random Uric Acid Nasal Screen MRSA (PCR) (Negative) Random Vancomycin mcg/ml 10/17/21 10/17/21 10/17/21 Range/Units 05:22 05:22 04:43 WBC 6.62 (4.8-10.8) K/uL RBC 2.88 L (4.2-5.4) M/uL Hgb 8.5 L (12.0-16.0) g/dL Hct 29.0 L (37-47) % MCV 100.7 H (80-100) fL MCH 29.5 (25-34) pg MCHC 29.3 L (32-36) g/dL RDW Std Deviation 53.9 H (36.4-46.3) fL RDW Coeff of Teresa 14.6 H (11.5-14.5) % Plt Count 191 (130-400) K/uL MPV 10.0 (7.4-10.4) fL Immature Gran % (Auto) 1.2 % Neut % (Auto) 71.4 % Lymph % (Auto) 9.5 % Porter % (Auto) 15.4 % Eos % (Auto) 2.3 % Baso % (Auto) 0.2 % Neut # (Auto) 4.73 (1.4-6.5) K/uL Lymph # (Auto) 0.63 L (1.2-3.4) K/uL Porter # (Auto) 1.02 H (0.11-0.59) K/uL Eos # (Auto) 0.15 (0-0.5) K/uL Baso # (Auto) 0.01 (0-0.2) K/uL Immature Gran # (Auto) 0.08 H (0.00-0.02) K/uL Sample Site L Radial POC pH 7.12 L* (7.35-7.45) POC pCO2 81 H (35-46) mmHg POC pO2 91 (80-95) mmHg POC HCO3 26 H (19-24) glenna/L POC Total CO2 29 (24-31) mmol/L POC Base Excess -3.0 (-9-1.8) glenna/L POC ABG O2 Sat 93.0 (90-95) % Gabriele Test Pass O2 Delivery Device BIPAP POC O2 Rate 20 POC FiO2 30 % IPAP 18 Sodium (136-145) mmol/L Potassium (3.5-5.1) mmol/L Chloride (98-107) mmol/L Carbon Dioxide (21-32) mmol/L Anion Gap (3-11) BUN (7-18) mg/dl Creatinine (0.6-1.2) mg/dl Est Cr Clr Drug Dosing ml/min Est GFR ( Amer) ml/min Est GFR (Non-Af Amer) ml/min BUN/Creatinine Ratio (10-20) Glucose (70-99) mg/dl POC Glucose (70-99) mg/dl Osmolality (280-300) mOsm/kg Lactate (0.4-2.0) mmol/L Calcium (8.5-10.1) mg/dl Phosphorus (2.5-4.9) mg/dl Magnesium (1.8-2.4) mg/dl Ammonia (11-32) umol/L NT-Pro-B Natriuret Pep (0-900) pg/ml TSH (0.300-4.500) uIu/ml Urine Osmolality (500-800) mOsm/kg Ur Random Potassium mmol/L Ur Random Chloride mmol/L Ur Random Uric Acid Nasal Screen MRSA (PCR) (Negative) Random Vancomycin 11.1 mcg/ml 10/17/21 10/16/21 10/16/21 Range/Units 00:02 23:50 22:00 WBC (4.8-10.8) K/uL RBC (4.2-5.4) M/uL Hgb (12.0-16.0) g/dL Hct (37-47) % MCV (80-100) fL MCH (25-34) pg MCHC (32-36) g/dL RDW Std Deviation (36.4-46.3) fL RDW Coeff of Teresa (11.5-14.5) % Plt Count (130-400) K/uL MPV (7.4-10.4) fL Immature Gran % (Auto) % Neut % (Auto) % Lymph % (Auto) % Porter % (Auto) % Eos % (Auto) % Baso % (Auto) % Neut # (Auto) (1.4-6.5) K/uL Lymph # (Auto) (1.2-3.4) K/uL Porter # (Auto) (0.11-0.59) K/uL Eos # (Auto) (0-0.5) K/uL Baso # (Auto) (0-0.2) K/uL Immature Gran # (Auto) (0.00-0.02) K/uL Sample Site POC pH (7.35-7.45) POC pCO2 (35-46) mmHg POC pO2 (80-95) mmHg POC HCO3 (19-24) glenna/L POC Total CO2 (24-31) mmol/L POC Base Excess (-9-1.8) glenna/L POC ABG O2 Sat (90-95) % Gabriele Test O2 Delivery Device POC O2 Rate POC FiO2 % IPAP Sodium 139 (136-145) mmol/L Potassium 3.4 L D (3.5-5.1) mmol/L Chloride 106 (98-107) mmol/L Carbon Dioxide 26 (21-32) mmol/L Anion Gap 7.0 (3-11) BUN 18 (7-18) mg/dl Creatinine 3.03 H (0.6-1.2) mg/dl Est Cr Clr Drug Dosing 18.8 ml/min Est GFR ( Amer) 17.7 ml/min Est GFR (Non-Af Amer) 15.2 ml/min BUN/Creatinine Ratio 6.0 L (10-20) Glucose 147 H (70-99) mg/dl POC Glucose 120 H 125 H (70-99) mg/dl Osmolality (280-300) mOsm/kg Lactate (0.4-2.0) mmol/L Calcium 8.1 L (8.5-10.1) mg/dl Phosphorus 5.6 H (2.5-4.9) mg/dl Magnesium 2.1 (1.8-2.4) mg/dl Ammonia (11-32) umol/L NT-Pro-B Natriuret Pep (0-900) pg/ml TSH (0.300-4.500) uIu/ml Urine Osmolality (500-800) mOsm/kg Ur Random Potassium mmol/L Ur Random Chloride mmol/L Ur Random Uric Acid Nasal Screen MRSA (PCR) (Negative) Random Vancomycin mcg/ml 10/16/21 10/16/21 10/16/21 Range/Units 18:06 14:57 12:20 WBC (4.8-10.8) K/uL RBC (4.2-5.4) M/uL Hgb (12.0-16.0) g/dL Hct (37-47) % MCV (80-100) fL MCH (25-34) pg MCHC (32-36) g/dL RDW Std Deviation (36.4-46.3) fL RDW Coeff of Teresa (11.5-14.5) % Plt Count (130-400) K/uL MPV (7.4-10.4) fL Immature Gran % (Auto) % Neut % (Auto) % Lymph % (Auto) % Porter % (Auto) % Eos % (Auto) % Baso % (Auto) % Neut # (Auto) (1.4-6.5) K/uL Lymph # (Auto) (1.2-3.4) K/uL Porter # (Auto) (0.11-0.59) K/uL Eos # (Auto) (0-0.5) K/uL Baso # (Auto) (0-0.2) K/uL Immature Gran # (Auto) (0.00-0.02) K/uL Sample Site POC pH (7.35-7.45) POC pCO2 (35-46) mmHg POC pO2 (80-95) mmHg POC HCO3 (19-24) glenna/L POC Total CO2 (24-31) mmol/L POC Base Excess (-9-1.8) glenna/L POC ABG O2 Sat (90-95) % Gabriele Test O2 Delivery Device POC O2 Rate POC FiO2 % IPAP Sodium 139 (136-145) mmol/L Potassium 4.3 (3.5-5.1) mmol/L Chloride 109 H (98-107) mmol/L Carbon Dioxide 22 (21-32) mmol/L Anion Gap 8.0 (3-11) BUN 21 H (7-18) mg/dl Creatinine 3.27 H (0.6-1.2) mg/dl Est Cr Clr Drug Dosing 17.5 ml/min Est GFR ( Amer) 16.1 ml/min Est GFR (Non-Af Amer) 13.9 ml/min BUN/Creatinine Ratio 6.3 L (10-20) Glucose 123 H (70-99) mg/dl POC Glucose 116 H (70-99) mg/dl Osmolality (280-300) mOsm/kg Lactate (0.4-2.0) mmol/L Calcium 8.0 L (8.5-10.1) mg/dl Phosphorus 5.5 H (2.5-4.9) mg/dl Magnesium 2.1 (1.8-2.4) mg/dl Ammonia (11-32) umol/L NT-Pro-B Natriuret Pep (0-900) pg/ml TSH (0.300-4.500) uIu/ml Urine Osmolality (500-800) mOsm/kg Ur Random Potassium mmol/L Ur Random Chloride mmol/L Ur Random Uric Acid Pending Nasal Screen MRSA (PCR) (Negative) Random Vancomycin mcg/ml 10/16/21 10/16/21 10/16/21 Range/Units 12:20 12:20 11:42 WBC (4.8-10.8) K/uL RBC (4.2-5.4) M/uL Hgb (12.0-16.0) g/dL Hct (37-47) % MCV (80-100) fL MCH (25-34) pg MCHC (32-36) g/dL RDW Std Deviation (36.4-46.3) fL RDW Coeff of Teresa (11.5-14.5) % Plt Count (130-400) K/uL MPV (7.4-10.4) fL Immature Gran % (Auto) % Neut % (Auto) % Lymph % (Auto) % Porter % (Auto) % Eos % (Auto) % Baso % (Auto) % Neut # (Auto) (1.4-6.5) K/uL Lymph # (Auto) (1.2-3.4) K/uL Porter # (Auto) (0.11-0.59) K/uL Eos # (Auto) (0-0.5) K/uL Baso # (Auto) (0-0.2) K/uL Immature Gran # (Auto) (0.00-0.02) K/uL Sample Site POC pH (7.35-7.45) POC pCO2 (35-46) mmHg POC pO2 (80-95) mmHg POC HCO3 (19-24) glenna/L POC Total CO2 (24-31) mmol/L POC Base Excess (-9-1.8) glenna/L POC ABG O2 Sat (90-95) % Gabriele Test O2 Delivery Device POC O2 Rate POC FiO2 % IPAP Sodium (136-145) mmol/L Potassium (3.5-5.1) mmol/L Chloride (98-107) mmol/L Carbon Dioxide (21-32) mmol/L Anion Gap (3-11) BUN (7-18) mg/dl Creatinine (0.6-1.2) mg/dl Est Cr Clr Drug Dosing ml/min Est GFR ( Amer) ml/min Est GFR (Non-Af Amer) ml/min BUN/Creatinine Ratio (10-20) Glucose (70-99) mg/dl POC Glucose 92 (70-99) mg/dl Osmolality (280-300) mOsm/kg Lactate (0.4-2.0) mmol/L Calcium (8.5-10.1) mg/dl Phosphorus (2.5-4.9) mg/dl Magnesium (1.8-2.4) mg/dl Ammonia (11-32) umol/L NT-Pro-B Natriuret Pep (0-900) pg/ml TSH (0.300-4.500) uIu/ml Urine Osmolality 204 L (500-800) mOsm/kg Ur Random Potassium 20.4 mmol/L Ur Random Chloride 60 mmol/L Ur Random Uric Acid Nasal Screen MRSA (PCR) (Negative) Random Vancomycin mcg/ml 10/16/21 10/16/21 10/16/21 Range/Units 10:53 10:53 09:30 WBC (4.8-10.8) K/uL RBC (4.2-5.4) M/uL Hgb (12.0-16.0) g/dL Hct (37-47) % MCV (80-100) fL MCH (25-34) pg MCHC (32-36) g/dL RDW Std Deviation (36.4-46.3) fL RDW Coeff of Teresa (11.5-14.5) % Plt Count (130-400) K/uL MPV (7.4-10.4) fL Immature Gran % (Auto) % Neut % (Auto) % Lymph % (Auto) % Porter % (Auto) % Eos % (Auto) % Baso % (Auto) % Neut # (Auto) (1.4-6.5) K/uL Lymph # (Auto) (1.2-3.4) K/uL Porter # (Auto) (0.11-0.59) K/uL Eos # (Auto) (0-0.5) K/uL Baso # (Auto) (0-0.2) K/uL Immature Gran # (Auto) (0.00-0.02) K/uL Sample Site POC pH (7.35-7.45) POC pCO2 (35-46) mmHg POC pO2 (80-95) mmHg POC HCO3 (19-24) glenna/L POC Total CO2 (24-31) mmol/L POC Base Excess (-9-1.8) glenna/L POC ABG O2 Sat (90-95) % Gabriele Test O2 Delivery Device POC O2 Rate POC FiO2 % IPAP Sodium (136-145) mmol/L Potassium (3.5-5.1) mmol/L Chloride (98-107) mmol/L Carbon Dioxide (21-32) mmol/L Anion Gap (3-11) BUN (7-18) mg/dl Creatinine (0.6-1.2) mg/dl Est Cr Clr Drug Dosing ml/min Est GFR ( Amer) ml/min Est GFR (Non-Af Amer) ml/min BUN/Creatinine Ratio (10-20) Glucose (70-99) mg/dl POC Glucose (70-99) mg/dl Osmolality 287 (280-300) mOsm/kg Lactate 0.4 (0.4-2.0) mmol/L Calcium (8.5-10.1) mg/dl Phosphorus (2.5-4.9) mg/dl Magnesium (1.8-2.4) mg/dl Ammonia 22.0 (11-32) umol/L NT-Pro-B Natriuret Pep (0-900) pg/ml TSH (0.300-4.500) uIu/ml Urine Osmolality (500-800) mOsm/kg Ur Random Potassium mmol/L Ur Random Chloride mmol/L Ur Random Uric Acid Nasal Screen MRSA (PCR) (Negative) Random Vancomycin mcg/ml 10/16/21 10/16/21 Range/Units 09:00 05:41 WBC (4.8-10.8) K/uL RBC (4.2-5.4) M/uL Hgb (12.0-16.0) g/dL Hct (37-47) % MCV (80-100) fL MCH (25-34) pg MCHC (32-36) g/dL RDW Std Deviation (36.4-46.3) fL RDW Coeff of Teresa (11.5-14.5) % Plt Count (130-400) K/uL MPV (7.4-10.4) fL Immature Gran % (Auto) % Neut % (Auto) % Lymph % (Auto) % Porter % (Auto) % Eos % (Auto) % Baso % (Auto) % Neut # (Auto) (1.4-6.5) K/uL Lymph # (Auto) (1.2-3.4) K/uL Porter # (Auto) (0.11-0.59) K/uL Eos # (Auto) (0-0.5) K/uL Baso # (Auto) (0-0.2) K/uL Immature Gran # (Auto) (0.00-0.02) K/uL Sample Site POC pH (7.35-7.45) POC pCO2 (35-46) mmHg POC pO2 (80-95) mmHg POC HCO3 (19-24) glenna/L POC Total CO2 (24-31) mmol/L POC Base Excess (-9-1.8) glenna/L POC ABG O2 Sat (90-95) % Gabriele Test O2 Delivery Device POC O2 Rate POC FiO2 % IPAP Sodium (136-145) mmol/L Potassium (3.5-5.1) mmol/L Chloride (98-107) mmol/L Carbon Dioxide (21-32) mmol/L Anion Gap (3-11) BUN (7-18) mg/dl Creatinine (0.6-1.2) mg/dl Est Cr Clr Drug Dosing ml/min Est GFR ( Amer) ml/min Est GFR (Non-Af Amer) ml/min BUN/Creatinine Ratio (10-20) Glucose (70-99) mg/dl POC Glucose (70-99) mg/dl Osmolality (280-300) mOsm/kg Lactate (0.4-2.0) mmol/L Calcium (8.5-10.1) mg/dl Phosphorus (2.5-4.9) mg/dl Magnesium (1.8-2.4) mg/dl Ammonia (11-32) umol/L NT-Pro-B Natriuret Pep 2520 H (0-900) pg/ml TSH 0.413 (0.300-4.500) uIu/ml Urine Osmolality (500-800) mOsm/kg Ur Random Potassium mmol/L Ur Random Chloride mmol/L Ur Random Uric Acid Nasal Screen MRSA (PCR) Negative (Negative) Random Vancomycin mcg/ml Medications Administered Current Inpatient Medications Albuterol (Albuterol Hfa 8 Gm Inhaler) 2 puffs INH Q4H PRN PRN Reason: Shortness Of Breath Stop: 11/15/21 10:54 Atorvastatin Calcium (Atorvastatin 40 Mg Tab) 40 mg PO QPM MARLA Stop: 11/11/21 20:59 Last Admin: 10/16/21 20:10 Dose: Not Given Documented by: Clopidogrel Bisulfate (Clopidogrel Bisulfate 75 Mg Tab) 75 mg PO QPM MARLA Stop: 11/10/21 21:33 Last Admin: 10/16/21 20:11 Dose: Not Given Documented by: Dextrose (Dextrose 50% 50 Ml Syringe) 25 - 50 ml IV UD PRN; Protocol PRN Reason: Hypoglycemia Protocol Stop: 11/10/21 19:30 Doxepin HCl (Doxepin Hcl 50 Mg Capsule) 50 mg PO HS MARLA Stop: 11/11/21 20:59 Last Admin: 10/15/21 19:52 Dose: 50 mg Documented by: Duloxetine HCl (Duloxetine Hcl 60 Mg Cap) 60 mg PO DAILY MARLA Stop: 11/12/21 08:59 Last Admin: 10/16/21 09:12 Dose: Not Given Documented by: Fluticasone Furoate (Fluticasone Furoate 100mcg 14 Puffs/Inhaler) 1 puffs INH DAILY PRN PRN Reason: Shortness Of Breath Stop: 11/10/21 21:47 Last Admin: 10/13/21 08:11 Dose: 1 puffs Documented by: Glucagon (Glucagon For Inj 1 Mg Vial) 1 mg SQ UD PRN; Protocol PRN Reason: Hypoglycemia Protocol Stop: 11/10/21 19:30 Glucose (Glucose 10 Tabs/Tube) 4 - 8 tabs PO UD PRN; Protocol PRN Reason: Hypoglycemia Protocol Stop: 11/10/21 19:30 Glucose (Glucose 40% Gel 15 Gm Tube) 15 - 30 gm PO UD PRN; Protocol PRN Reason: Hypoglycemia Protocol Stop: 11/10/21 19:30 Heparin Sodium (Porcine) (Heparin Sod 5,000 Unit/0.5 Ml Vial) 5,000 units SQ Q8 [facility] Stop: 11/10/21 21:59 Last Admin: 10/17/21 06:50 Dose: 5,000 units Documented by: Cefepime HCl 2,000 mg/ Syringe 20 mls @ 5 mls/min IV DAILY@0900 [facility]; Protocol Stop: 10/18/21 08:29 Last Admin: 10/16/21 09:30 Dose: 5 mls/min Documented by: Sodium Chloride (Nss 1000ml) 1,000 mls @ 100 mls/hr IV .Q10H [facility] Stop: 11/16/21 01:14 Last Admin: 10/17/21 01:43 Dose: 100 mls/hr Documented by: Midazolam HCl (Versed) 125 mg in 250 mls @ 2 mls/hr IV .Q96H PRN; Protocol PRN Reason: Agitation Stop: 11/16/21 06:02 Insulin Aspart (Insulin Aspart Per Unit) 0 units SC Q6 [facility] Stop: 11/15/21 07:59 Last Admin: 10/17/21 05:51 Dose: Not Given Documented by: Insulin Glargine (Insulin Glargine Solostar 100 Units/Ml 3 Ml Pen) 5 units SC BID [facility] Stop: 11/10/21 20:59 Last Admin: 10/15/21 20:51 Dose: 5 units Documented by: Magnesium Oxide (Magnesium Oxide 400 Mg Tab) 400 mg PO HS [facility] Stop: 11/11/21 20:59 Last Admin: 10/16/21 20:11 Dose: Not Given Documented by: Metoprolol Succinate (Metoprolol Succ 50mg Ext Rel Tab) 50 mg PO QAM [facility] Stop: 11/12/21 08:59 Last Admin: 10/16/21 09:12 Dose: Not Given Documented by: Metoprolol Succinate (Metoprolol Succ 25mg Ext Rel Tab) 25 mg PO PM [facility] Stop: 11/11/21 20:59 Last Admin: 10/15/21 19:53 Dose: 25 mg Documented by: Midazolam HCl (Midazolam Bolus From Bag) 2 mg IV Q60M PRN PRN Reason: Sedation Stop: 11/16/21 06:02 Miscellaneous (Carbohydrates For Hypoglycemia ) 15 - 30 gm PO UD PRN PRN Reason: Hypoglycemia Protocol Stop: 11/10/21 19:30 Ondansetron HCl (Ondansetron Inj 2 Mg/Ml 2 Ml Vial) 4 mg IV Q6H PRN PRN Reason: nausea, vomiting Stop: 11/10/21 19:44 Last Admin: 10/13/21 03:10 Dose: 4 mg Documented by: Oxcarbazepine (Oxcarbazepine 150 Mg Tablet) 300 mg PO BID [facility] Stop: 11/11/21 20:59 Last Admin: 10/16/21 20:11 Dose: Not Given Documented by: Pantoprazole Sodium (Pantoprazole 40 Mg Tab) 40 mg PO BID [facility] Stop: 11/11/21 20:59 Last Admin: 10/16/21 20:12 Dose: Not Given Documented by: Umeclidinium/Vilanterol (Umeclidinium/Vilanterol 62.5/25mcg 7 Puffs/Inhaler) 1 puffs INH DAILY PRN PRN Reason: Shortness Of Breath Stop: 11/10/21 21:48 Last Admin: 10/13/21 08:10 Dose: 1 puffs Documented by: Vitamin D (Cholecalciferol 1,000 Units 25 Mcg Tab) 2,000 units PO QAM [facility] Stop: 11/12/21 08:59 Last Admin: 10/16/21 09:12 Dose: Not Given Documented by:
[2021-10-17 09:44] LABS: iSTAT Arterial Blood Gas HCO3 25 meg/L (19-24); iSTAT Arterial Blood Gas pCO2 79 mmHg (35-46); iSTAT Arterial Blood Gas pH 7.11 (7.35-7.45); iSTAT Arterial Blood Gas pO2 74 mmHg (80-95); iSTAT Carbon Dioxide 27 mmol/L (24-31); iSTAT FiO2 25 %; iSTAT Site Art Line
[2021-10-17] MEDS ORDERED: LIDOCAINE 1% LOCAL 20 ML VIAL ONE ×2 (09:50→09:52)
[2021-10-17] MEDS: propofoL 1,000 MG/100 ML VIAL IV SCH ×3 (10:00→21:21)
[2021-10-17] MEDS ORDERED: fentaNYL citrate 2,500 MCG/250 ML BAG IV ONE (10:10)
[2021-10-17] MEDS ORDERED: PROPOFOL IV EMULSION 10 MG/ML 100 ML VIAL IV ONE (10:10)
--- NOTE | 2021-10-17 10:48 | Procedure Note ---
Procedure Note Date of Service October 17, 2021 Note INTUBATION PROCEDURE NOTE: Attending: Dr Filomena Doss MD Patient was evaluated and plan to intubate was made for ventilatory failure. Sedative agent used: 100 mg lidocaine, 25 mg etomidate Paralysis agent used: None Emergent consent was implied given patients rapidly declining clinical status and need for airway protection. The patient was prepared in the appropriate fashion. The patient was easily pre-oxygenated by using [id number] ventilation. With help of glide scope grade 2 vocal cords were visualized and 7.5 Norwegian ETT was introduced on first attempt to 23 cm at the lip. The stylette was removed and balloon was inflated with 10mL of air. Appropriate Colorimetric change was appreciated for at least 10 breaths. Bilateral chest rise and breath sounds were appreciated without air sounds in the epigastrium. Patient tolerated the procedure well and there were no immediate complications. Chest Xray to follow for confirming placement. Coding CPT Codes Resuscitation - Resuscitation: [id number] Endotracheal Intubation, emergency ([id number]) [facility] [place] Procedure Codes (Charges) Resuscitation Resuscitation: [id number] Endotracheal Intubation, emergency
--- NOTE | 2021-10-17 10:50 | Procedure Note ---
Procedure Note Date of Service October 17, 2021 Note Procedure: Inserting ultrasound-guided central online advertising director: Dr. Filomena Doss Indication: Poor access in an intubated patient Consent: Emergent consent was applied Anesthesia: 1% lidocaine without epinephrine local. Procedure: Timeout performed. Appropriate imaging studies were reviewed prior to the procedure. Under aseptic and sterile condition, right IJ vein was accessed under direct ultrasound guidance. Guidewire was confirmed to be within the lumen of vein with the help of ultrasound. Catheter was introduced via Seldinger technique. Guide a wire was removed. Good non-pulsatile blood flow was appreciated from all the ports. The catheter was placed at 16 cm and sut[address] in place. BioPatch was applied to the catheter and a sterile Tegaderm dressing was applied over the catheter with careful attention to sterility. Lung sliding was appreciated post procedure with the help ultrasound. Chest x-ray to follow Patient tolerated the procedure well. Blood loss: Less than 2 cc Complications: None Coding CPT Codes Tubes, Drains, and Vasc Access - Tubes, Drains, and Vasc Access: [id number] Place catheter in vein superior or inferior vena cava ([id number]) Tubes, Drains, and Vasc Access - Tubes, Drains, and Vasc Access: [id number] Ultrasound Guidance For Vascular ([id number]) [facility] [place] Procedure Codes (Charges) Tubes, Drains, and Vasc Access Procedure 1: Tubes, Drains, and Vasc Access: [id number] Place catheter in vein superior or inferior vena cava Procedure 2: Tubes, Drains, and Vasc Access: [id number] Ultrasound Guidance For Vascular
--- NOTE | 2021-10-17 10:54 | Critical Care Progress Note ---
Date of Service October 17, 2021 Assessment & Plan (1) Acute metabolic encephalopathy: (2) Acute kidney injury superimposed on chronic kidney disease: (3) Acute respiratory acidosis: (4) CKD (chronic kidney disease), stage III: Plan: -- VDRF Likely secondary to metabolic encephalopathy Multifactorial Acute hypercapnia as well as metabolic acidosis playing a role Intubated 10/17/2021 Continue with ventilatory support Keep RASS -1 Daily sedation holidays and SBT's Ammonia [address] head 10/16/2021 negative for any acute abnormality Covid-19 negative 10/11/2021 --Acute renal failure on CKD --> improving Monitor BUNs/creatinine Avoid nephrotoxic medication Follow-up urine lites --Pyelonephritis Continue with antibiotics Initial urine culture negative to date Repeat urine culture 10/16/2021 negative to date --Bipolar disorder On oxcarbazepine --History of anxiety/depression Hold all antidepressant medication for the time being --Diabetes type 2 Continue with ICU hypoglycemia protocol --Prophylaxis VTE: Heparin GI: Lansoprazole Lines: Right IJ, positive Purvis, positive ETT Diet: Clear to begin start tube feeds on her we can call the repairer and checker Plan: In/out: Positive 3.4 L, urine output 950 AB.11/79/74 on BiPAP 31/05 --> 7.29/47/125 on PEEP of eight, 40% with respirate of 24 Patient's nasal MRSA is negative. Blood culture and urine culture negative to date. We'll discontinue vancomycin, Continue with cefepime Unfortunately patient failed BiPAP and was intubated. Patient has poor access, right IJ was placed. Creatinine gradually improving. Continue with IV fluids. Bicarb drip has been discontinued Patient's was called and updated regarding the intubation. I have personally spent 48 minutes of critical care time in the direct management of this patient. This is a life/limb threatening event. This includes time spent evaluating patient, direct bedside care, chart review, placing orders, interpretation of diagnostic studies, discussion with consultants, patient, and family members, as well as other required patient management activities. This time is exclusive of all separately billable procedures, and teaching time and separate from and in addition to any other critical care service time. Please note the above document was generated using voice recognition software. It may contain grammatical, syntax or spelling errors. Admission and Anticipated Discharge Date Admission Date: October 11, 2021 Subjective Patient seen and examined at bedside. Patient was on BiPAP but unfortunately still not waking up. ABG from today showed PCO2 climbing up with pH declining. I did made adjustment to the BiPAP but still no improvement. Plan to intubate was made. Review of Systems Review of Systems: Unobtainable due to reduced consciousness Physical Exam Physical Exam: Constitutional: No acute distress HEENT: PERRLA Respiratory system: Decreased air entry bilaterally, no wheeze, no rhonchi, positive mild crackles bilateral lower lobe CVS: S1-S2 positive, no murmurs or gallops Abdomen: Soft, nontender, nondistended, positive bowel sounds x4, obese Extremities: +2 pulses bilaterally radialis/ dorsalis pedis, no cyanosis, no edema Neuro: On BiPAP, responding only to sternal rub Psych: Unable to assess G/U: Positive Purvis Skin: no rashes, warm and dry Lymphatic: no cervical or axillary lymphadenopathy Results & Data Results & Data ([facility]) Vital Signs (Past 12 Hours) Vital Signs Temp Pulse Resp BP Pulse Ox 10/17/21 08:00 37.0 C 89 98 10/17/21 07:40 90 30 H 97 10/17/21 04:00 29 H 94 10/17/21 02:56 90 29 H 94 10/17/21 01:40 91 H 30 H 100 10/17/21 01:30 90 25 H 99 10/17/21 01:20 91 H 23 100 10/17/21 01:10 89 20 100 10/17/21 01:00 89 30 H 126/71 100 10/17/21 00:50 90 25 H 98 10/17/21 00:40 89 22 100 10/17/21 00:30 89 28 H 93 10/17/21 00:20 93 H 27 H 98 10/17/21 00:10 88 22 97 10/17/21 00:00 91 H 23 118/80 98 10/16/21 23:59 89 10/16/21 23:50 93 H 15 97 10/16/21 23:40 89 22 99 10/16/21 23:30 89 14 100 10/16/21 23:20 92 H 18 99 10/16/21 23:10 91 H 17 100 10/16/21 23:00 92 H 15 125/70 100 Laboratory Results 10/17/21 05:22 10/17/21 05:22 Coding Level of Care Code Critical Care 1st 30-74 mins Diagnoses Acute metabolic encephalopathy G93.41 Acute kidney injury superimposed on chronic kidney disease N17.9; N18.9 Acute respiratory acidosis E87.2 CKD (chronic kidney disease), stage III N18.30 Time Spent (min) 48
[2021-10-17] MEDS ORDERED: PROPOFOL BOLUS FROM BAG IV PRN (10:57)
[2021-10-17] MEDS ORDERED: fentaNYL citrate 2,500 MCG/250 ML BAG IV SCH (11:00)
[2021-10-17] MEDS: CEFEPIME 2,000 MG in SYRINGE 0 ML IV SCH (11:23)
[2021-10-17] MEDS: OXcarbazepine 150 MG TABLET PO SCH ×2 (11:25→20:23)
[2021-10-17] MEDS: CHOLECALCIFEROL 1,000 UNITS 25 MCG TAB PO SCH (11:26)
[2021-10-17] MEDS: PANTOprazole 40 MG TAB PO SCH (11:26)
[2021-10-17 11:40] LABS: iSTAT Arterial Blood Gas HCO3 23 meg/L (19-24); iSTAT Arterial Blood Gas pCO2 47 mmHg (35-46); iSTAT Arterial Blood Gas pH 7.29 (7.35-7.45); iSTAT Arterial Blood Gas pO2 125 mmHg (80-95); iSTAT Carbon Dioxide 24 mmol/L (24-31); iSTAT FiO2 40 %; iSTAT Site Art Line
--- NOTE | 2021-10-17 12:32 | XRay Report ---
XR chest 1V portable CLINICAL HISTORY: hypoxia TECHNIQUE: Single frontal radiograph of the chest was obtained. Comparison: Comparison is made to chest one view 10/16/2021 FINDINGS: No lines and tubes are seen. The cardiomediastinal silhouette is normal. Prominence and cephalization of the vasculature is seen. No evidence of pleural effusion or pneumothorax. IMPRESSION: Mild pulmonary edema. This represents an improvement from prior exam. ACT 112: Negative or not required by law. Electronically signed by: Yuan Jorge M.D. 10/17/2021 12:30 PM
[2021-10-17 13:25] LABS: iSTAT Arterial Blood Gas HCO3 20 meg/L (19-24); iSTAT Arterial Blood Gas pCO2 35 mmHg (35-46); iSTAT Arterial Blood Gas pH 7.37 (7.35-7.45); iSTAT Arterial Blood Gas pO2 77 mmHg (80-95); iSTAT Carbon Dioxide 21 mmol/L (24-31); iSTAT FiO2 30 %; iSTAT Site Art Line
--- NOTE | 2021-10-17 13:28 | XRay Report ---
XR chest 1V portable CLINICAL HISTORY: Confirmation of CVC and OGT placement TECHNIQUE: Single frontal radiograph of the chest was obtained. Comparison: Comparison is made to chest one view 10/17/2022 2 FINDINGS: Endotracheal tube terminates 2 cm from the teresa. Enteric tube tip and side-port is below the diaphr agm. Right IJ catheter terminates in the lower SVC. The cardiomediastinal silhouette is normal. Left lower lung airspace opacity is seen, increased from prior exam. There is mild cephalization of the va sculature. No evidence of pleural effusion or pneumothorax. IMPRESSION: 1. Left lower lung airspace opacity is increased from prior exam and may represent atelectasis, pneu monia, and/or aspiration. 2. Mild pulmonary edema, unchanged. ACT 112: Negative or not required by law. Electronically signed by: Yuan Jorge M.D. 10/17/2021 1:26 PM
[2021-10-17] MEDS: LANSOPRAZOLE 30 MG SOLTAB PO SCH (14:10)
[2021-10-17] MEDS ORDERED: PEPTAMEN INTENSE VHP 1.0 CAL 1,000 ML BAG OG SCH (15:00)
[2021-10-17] MEDS ORDERED: LIDOCAINE 2% 20 MG/ML 5 ML SYR IV ONE (15:14)
[2021-10-17] MEDS ORDERED: ETOMIDATE 2 MG/ML 20 ML VIAL IV ONE (15:14)
[2021-10-17] MEDS: CLOPIDOGREL BISULFATE 75 MG TAB PO SCH (20:23)
[2021-10-17] MEDS: ATORVASTATIN 40 MG TAB PO SCH (20:23)
[2021-10-17] MEDS: MAGNESIUM OXIDE 400 MG TAB PO SCH (20:24)
[2021-10-18] MEDS: INSULIN ASPART PER UNIT SC SCH ×4 (00:11→17:58)
[2021-10-18] MEDS: SODIUM CHLORIDE 0.9% 1000ML 1,000 ML IV SCH ×2 (04:20→08:56)
[2021-10-18] MEDS: propofoL 1,000 MG/100 ML VIAL IV SCH ×5 (04:21→18:42)
[2021-10-18 05:39] LABS: iSTAT Arterial Blood Gas HCO3 16 meg/L (19-24); iSTAT Arterial Blood Gas pCO2 26 mmHg (35-46); iSTAT Arterial Blood Gas pH 7.41 (7.35-7.45); iSTAT Arterial Blood Gas pO2 71 mmHg (80-95); iSTAT Carbon Dioxide 17 mmol/L (24-31); iSTAT FiO2 30 %; iSTAT Site Art Line
[2021-10-18 05:54] LABS: Hematocrit (blood only) 25.1 % (37-47); Hemoglobin 7.7 g/dL (12.0-16.0); Mean Corpuscular Hgb Conc 30.7 g/dL (32-36); Mean Corpuscular Volume 97.7 fL (80-100); Platelet Count 224 K/uL (130-400); RDW Coefficient of Variation 14.6 % (11.5-14.5); RDW Standard Deviation 52.2 fL (36.4-46.3); Red Blood Count 2.57 M/uL (4.2-5.4); White Blood Count 6.12 K/uL (4.8-10.8)
[2021-10-18] MEDS: HEPARIN SOD 5,000 UNIT/0.5 ML VIAL SQ SCH ×2 (06:26→13:40)
[2021-10-18 06:41] LABS: BUN Creatinine Ratio 9.3 (10-20); Calcium 8.1 mg/dl (8.5-10.1); Creatinine Clr Calc Pharmacy 24.2 ml/min; Est GFR (African American) 21.8 ml/min; Est GFR (Non-African American) 18.8 ml/min; Magnesium 2.1 mg/dl (1.8-2.4); Phosphorus 2.3 mg/dl (2.5-4.9); Potassium 2.9 mmol/L (3.5-5.1)
--- NOTE | 2021-10-18 07:58 | Hospitalist Progress Note ---
Date of Service October 18, 2021 Assessment & Plan (1) Acute metabolic encephalopathy: (2) Obstructive pyelonephritis: (3) Ureteral calculus: (4) Complicated UTI (urinary tract infection): (5) Pain due to ureteral stent: Plan: 65 yo F with DM II, COPD, CKD III, HTN, bipolar disorder, chronic respiratory failure on home O2 (2L), laparoscopic colectomy total w/o proctectomy w/ ileostomy and ileoproctostomy in 2010 for colon Ca presented 10/11/21 w/ fever, chills, and abdominal pain. CT ABD/pelvis on admission showed 5 mm obstructing calculus just above the left vesicoureteral junction causing minimal left hydroureteronephrosis and possible evidence of pyelonephritis. S/p cystoscopy with left retrograde pyelogram aspiration and stent placement by Dr. Adam on 10/12 Patient had 2 negative urine cultures and negative blood cultures however given clinical picture concerning for infectious process, patient has remained on Rocephin Patient continued to have some stent discomfort with urination however improved with addition of Tylenol #3. Purvis removed on 10/13. Urology repeated renal ultrasound to evaluate for possible hydronephrosis on 10/15 in setting of worsening renal function - no evidence of hydro Significant clinical decline as of AM on 10/16/21 - transferred to ICU for closer monitoring due to obtunded state with respiratory acidosis with pH of 7.16, Also febrile and hypotensive Blood cultures obtained, abx broadened to cefepime and vanco (vanco discontinued after negative mrsa swab) Urology repeated CT abd/pelvis showing left nephroureteral stent with remaining pelviectasis and left cortical thinning. Bilateral nephrolithiasis Per urology, no hydro or obstruction. Bladder is decompressed. No urology intervention at this time. Repeat urine cultures Obtaining a head CT wo con due to reported fall by RN. Appeared that patient slid off of commode but unwitnessed. CT head negative Patient was started on BiPAP, however 10/17 AM, still significant respiratory acidosis, with low pH and elevated PCO2. Also patient continued to be obtunded therefore patient was intubated on 10/17/21 (6) Acute respiratory acidosis: Plan: Obtunded AM, 10/16/21. ABG with pH of 7.16, pCO2 of 59, bicarb 20. Also with worsening renal function History of CALI but not on CPAP - on chronic 2L NC O2 Last received narcotics on 10/15 at 1300 Bipap started at 0600 - continue. Management per steam room attendant Bicarb drip initiated Despite being on BiPAP, patient obtunded on 10/17 a.m., with low pH, and elevated PCO2, therefore decision made to intubate the patient. (7) Acute kidney injury superimposed on chronic kidney disease: Plan: Worsening renal function in past few days from 2.1 --> 2.4 --> 3.[address] abd/pelvis 10/16 showing left nephroureteral stent with remaining pelviectasis and left cortical thinning. No hydro or obstruction. Bladder is decompressed Consulting nephrology for further recommendations Cr improved to 2.5 (8) Chronic respiratory failure with hypoxia: Plan: Baseline - chronic 2 L of oxygen Currently intubated due to altered mental status, respiratory acidosis (9) Morbid obesity with BMI of 40.0-44.9, adult: Plan: BMI 44.9 Lifestyle modifications encouraged (10) Diabetes mellitus, type 2: Plan: Hgb A1c 6.5 10/12/2021 Hold oral agents and utilize Lantus and NovoLog per protocol while hospitalized (11) Anemia: Plan: Hgb 11.6 --> 9.4 --> 10.2 --> 8.8 --> 9.6 --> 8.9 --> 7.7 No signs of bleeding, poss. dilutional in comb. of frequent blood draws FOBT ordered (12) DVT prophylaxis: Plan: SQ heparin Dispo - ICU. Admission and Anticipated Discharge Date Admission Date: October 11, 2021 Subjective Patient seen in follow-up of altered mental status Initially admitted for pyelonephritis, underwent cystoscopy and stent placement on October 12 On 10/16 patient was transferred to ICU, as she was obtunded, pH low, and CO2 elevated. She was started on BiPAP however without much improvement next morning. Therefore patient was intubated on 10/17. Currently patient is lying in bed, sedated intubated, able to open her eyes Review of Systems Review of Systems: Unobtainable due to cognitive status and Unobtainable due to endotracheal tube Physical Exam Physical Exam: Constitutional:L morbidly obese F, intubated, sedated Eyes:L opens eyes, PERRL ENMT: Ears: no external ear abnormality N ose: no external n ose abnormality M outh: + dry oral m ucous membranes Neck: R IJ placed Respiratory: + rhonchous breat h sounds Cardiovascular:L Rate/Rhythm: regul ar rhythm Gastrointestinal ( Abdomen): normal bowel sound s, soft, obese Musculoskeletal: no LE edema Skin: no rashes, warm an d dry Neurologic: sedated Results & Data Results & Data ([facility]) Vital Signs (Past 12 Hours) Vital Signs Pulse Resp BP Pulse Ox 10/18/21 04:24 76 24 99 10/18/21 04:00 24 95 10/18/21 03:40 77 24 95 10/18/21 03:30 77 24 96 10/18/21 03:20 76 26 H 95 10/18/21 03:10 77 24 93 10/18/21 03:00 77 24 102/70 94 10/18/21 02:50 82 21 92 10/18/21 02:40 81 24 94 10/18/21 02:30 84 24 94 10/18/21 02:20 85 21 95 10/18/21 02:10 84 24 96 10/18/21 02:00 82 24 108/67 98 10/18/21 01:50 81 21 98 10/18/21 01:40 84 24 99 10/18/21 01:30 84 24 99 10/18/21 01:20 88 21 100 10/18/21 01:10 86 24 97 10/18/21 01:00 82 24 113/67 99 10/18/21 00:50 86 21 100 10/18/21 00:40 85 24 100 10/18/21 00:30 85 24 98 10/18/21 00:20 84 21 100 10/18/21 00:10 85 24 100 10/18/21 00:00 85 24 110/76 100 10/17/21 23:59 85 10/17/21 23:50 82 21 100 10/17/21 23:40 82 24 100 10/17/21 23:30 82 24 100 10/17/21 23:25 82 26 H 98 10/17/21 23:20 81 21 100 10/17/21 23:10 81 24 100 10/17/21 23:01 80 24 107/70 99 10/17/21 23:00 80 24 100 10/17/21 22:50 80 21 100 10/17/21 22:40 79 24 100 10/17/21 22:30 78 24 100 10/17/21 22:20 77 21 100 10/17/21 22:10 79 24 100 10/17/21 22:00 78 24 107/71 100 10/17/21 21:50 77 21 100 10/17/21 21:40 78 24 100 10/17/21 21:30 79 24 100 10/17/21 21:20 80 21 100 10/17/21 21:10 81 24 100 10/17/21 21:00 80 24 96/73 L 100 10/17/21 20:50 82 21 100 10/17/21 20:40 82 24 100 10/17/21 20:30 82 24 100 10/17/21 20:20 85 21 100 10/17/21 20:10 88 24 100 10/17/21 20:00 87 24 98/71 L 99 Laboratory Results 10/18/21 10/18/21 10/18/21 Range/Units 06:15 05:22 05:17 WBC (4.8-10.8) K/uL RBC (4.2-5.4) M/uL Hgb (12.0-16.0) g/dL Hct (37-47) % MCV (80-100) fL MCH (25-34) pg MCHC (32-36) g/dL RDW Std Deviation (36.4-46.3) fL RDW Coeff of Teresa (11.5-14.5) % Plt Count (130-400) K/uL MPV (7.4-10.4) fL Sample Site Art Line POC pH 7.41 (7.35-7.45) POC pCO2 26 L (35-46) mmHg POC pO2 71 L (80-95) mmHg POC HCO3 16 L (19-24) glenna/L POC Total CO2 17 L (24-31) mmol/L POC Base Excess -8.0 (-9-1.8) glenna/L POC ABG O2 Sat 95.0 (90-95) % Gabriele Test NA O2 Delivery Device Ventilator POC O2 Rate 24 Minute Ventilation 9.1 POC FiO2 30 % Tidal Volume 380 PEEP 5 IPAP Sodium 140 (136-145) mmol/L Potassium 2.9 L D (3.5-5.1) mmol/L Chloride 110 H (98-107) mmol/L Carbon Dioxide 18 L (21-32) mmol/L Anion Gap 12.0 H (3-11) BUN 24 H (7-18) mg/dl Creatinine 2.55 H D (0.6-1.2) mg/dl Est Cr Clr Drug Dosing 24.2 ml/min Est GFR ( Amer) 21.8 ml/min Est GFR (Non-Af Amer) 18.8 ml/min BUN/Creatinine Ratio 9.3 L (10-20) Glucose 141 H (70-99) mg/dl POC Glucose 120 H (70-99) mg/dl Calcium 8.1 L (8.5-10.1) mg/dl Phosphorus 2.3 L D (2.5-4.9) mg/dl Magnesium 2.1 (1.8-2.4) mg/dl 10/18/21 10/17/21 10/17/21 Range/Units 05:17 23:54 18:30 WBC 6.12 (4.8-10.8) K/uL RBC 2.57 L (4.2-5.4) M/uL Hgb 7.7 L (12.0-16.0) g/dL Hct 25.1 L (37-47) % MCV 97.7 (80-100) fL MCH 30.0 (25-34) pg MCHC 30.7 L (32-36) g/dL RDW Std Deviation 52.2 H (36.4-46.3) fL RDW Coeff of Teresa 14.6 H (11.5-14.5) % Plt Count 224 (130-400) K/uL MPV 10.0 (7.4-10.4) fL Sample Site POC pH (7.35-7.45) POC pCO2 (35-46) mmHg POC pO2 (80-95) mmHg POC HCO3 (19-24) glenna/L POC Total CO2 (24-31) mmol/L POC Base Excess (-9-1.8) glenna/L POC ABG O2 Sat (90-95) % Gabriele Test O2 Delivery Device POC O2 Rate Minute Ventilation POC FiO2 % Tidal Volume PEEP IPAP Sodium (136-145) mmol/L Potassium (3.5-5.1) mmol/L Chloride (98-107) mmol/L Carbon Dioxide (21-32) mmol/L Anion Gap (3-11) BUN (7-18) mg/dl Creatinine (0.6-1.2) mg/dl Est Cr Clr Drug Dosing ml/min Est GFR ( Amer) ml/min Est GFR (Non-Af Amer) ml/min BUN/Creatinine Ratio (10-20) Glucose (70-99) mg/dl POC Glucose 87 78 (70-99) mg/dl Calcium (8.5-10.1) mg/dl Phosphorus (2.5-4.9) mg/dl Magnesium (1.8-2.4) mg/dl 10/17/21 10/17/21 10/17/21 Range/Units 13:09 11:44 11:26 WBC (4.8-10.8) K/uL RBC (4.2-5.4) M/uL Hgb (12.0-16.0) g/dL Hct (37-47) % MCV (80-100) fL MCH (25-34) pg MCHC (32-36) g/dL RDW Std Deviation (36.4-46.3) fL RDW Coeff of Teresa (11.5-14.5) % Plt Count (130-400) K/uL MPV (7.4-10.4) fL Sample Site Art Line Art Line POC pH 7.37 7.29 L (7.35-7.45) POC pCO2 35 47 H (35-46) mmHg POC pO2 77 L 125 H (80-95) mmHg POC HCO3 20 23 (19-24) glenna/L POC Total CO2 21 L 24 (24-31) mmol/L POC Base Excess -5.0 -4.0 (-9-1.8) glenna/L POC ABG O2 Sat 95.0 98.0 H (90-95) % Gabriele Test NA NA O2 Delivery Device Ventilator Ventilator POC O2 Rate 24 24 Minute Ventilation 8.9 8.6 POC FiO2 30 40 % Tidal Volume 380 360 PEEP 8 8 IPAP Sodium (136-145) mmol/L Potassium (3.5-5.1) mmol/L Chloride (98-107) mmol/L Carbon Dioxide (21-32) mmol/L Anion Gap (3-11) BUN (7-18) mg/dl Creatinine (0.6-1.2) mg/dl Est Cr Clr Drug Dosing ml/min Est GFR ( Amer) ml/min Est GFR (Non-Af Amer) ml/min BUN/Creatinine Ratio (10-20) Glucose (70-99) mg/dl POC Glucose 127 H (70-99) mg/dl Calcium (8.5-10.1) mg/dl Phosphorus (2.5-4.9) mg/dl Magnesium (1.8-2.4) mg/dl 10/17/21 Range/Units 09:31 WBC (4.8-10.8) K/uL RBC (4.2-5.4) M/uL Hgb (12.0-16.0) g/dL Hct (37-47) % MCV (80-100) fL MCH (25-34) pg MCHC (32-36) g/dL RDW Std Deviation (36.4-46.3) fL RDW Coeff of Teresa (11.5-14.5) % Plt Count (130-400) K/uL MPV (7.4-10.4) fL Sample Site Art Line POC pH 7.11 L* (7.35-7.45) POC pCO2 79 H (35-46) mmHg POC pO2 74 L (80-95) mmHg POC HCO3 25 H (19-24) glenna/L POC Total CO2 27 (24-31) mmol/L POC Base Excess -5.0 (-9-1.8) glenna/L POC ABG O2 Sat 88.0 L (90-95) % Gabriele Test NA O2 Delivery Device BIPAP POC O2 Rate 26 Minute Ventilation POC FiO2 25 % Tidal Volume PEEP IPAP 24 Sodium (136-145) mmol/L Potassium (3.5-5.1) mmol/L Chloride (98-107) mmol/L Carbon Dioxide (21-32) mmol/L Anion Gap (3-11) BUN (7-18) mg/dl Creatinine (0.6-1.2) mg/dl Est Cr Clr Drug Dosing ml/min Est GFR ( Amer) ml/min Est GFR (Non-Af Amer) ml/min BUN/Creatinine Ratio (10-20) Glucose (70-99) mg/dl POC Glucose (70-99) mg/dl Calcium (8.5-10.1) mg/dl Phosphorus (2.5-4.9) mg/dl Magnesium (1.8-2.4) mg/dl Medications Administered Current Inpatient Medications Albuterol (Albuterol Hfa 8 Gm Inhaler) 2 puffs INH Q4H PRN PRN Reason: Shortness Of Breath Stop: 11/15/21 10:54 Atorvastatin Calcium (Atorvastatin 40 Mg Tab) 40 mg PO QPM MARLA Stop: 11/11/21 20:59 Last Admin: 10/17/21 20:23 Dose: 40 mg Documented by: Clopidogrel Bisulfate (Clopidogrel Bisulfate 75 Mg Tab) 75 mg PO QPM MARLA Stop: 11/10/21 21:33 Last Admin: 10/17/21 20:23 Dose: 75 mg Documented by: Dextrose (Dextrose 50% 50 Ml Syringe) 25 - 50 ml IV UD PRN; Protocol PRN Reason: Hypoglycemia Protocol Stop: 11/10/21 19:30 Doxepin HCl (Doxepin Hcl 50 Mg Capsule) 50 mg PO HS [facility] Stop: 11/11/21 20:59 Last Admin: 10/15/21 19:52 Dose: 50 mg Documented by: Duloxetine HCl (Duloxetine Hcl 60 Mg Cap) 60 mg PO DAILY MARLA Stop: 11/12/21 08:59 Last Admin: 10/16/21 09:12 Dose: Not Given Documented by: Fentanyl Citrate (Fentanyl Bolus From Bag) 50 mcg IV Q60M PRN PRN Reason: Pain or Agitation Stop: 10/31/21 10:52 Fluticasone Furoate (Fluticasone Furoate 100mcg 14 Puffs/Inhaler) 1 puffs INH DAILY PRN PRN Reason: Shortness Of Breath Stop: 11/10/21 21:47 Last Admin: 10/13/21 08:11 Dose: 1 puffs Documented by: Glucagon (Glucagon For Inj 1 Mg Vial) 1 mg SQ UD PRN; Protocol PRN Reason: Hypoglycemia Protocol Stop: 11/10/21 19:30 Glucose (Glucose 10 Tabs/Tube) 4 - 8 tabs PO UD PRN; Protocol PRN Reason: Hypoglycemia Protocol Stop: 11/10/21 19:30 Glucose (Glucose 40% Gel 15 Gm Tube) 15 - 30 gm PO UD PRN; Protocol PRN Reason: Hypoglycemia Protocol Stop: 11/10/21 19:30 Heparin Sodium (Porcine) (Heparin Sod 5,000 Unit/0.5 Ml Vial) 5,000 units SQ Q8 [facility] Stop: 11/10/21 21:59 Last Admin: 10/18/21 06:26 Dose: 5,000 units Documented by: Cefepime HCl 2,000 mg/ Syringe 20 mls @ 5 mls/min IV DAILY@0900 [facility]; Protocol Stop: 10/18/21 08:29 Last Admin: 10/17/21 11:23 Dose: 5 mls/min Documented by: Sodium Chloride (Nss 1000ml) 1,000 mls @ 100 mls/hr IV .Q10H [facility] Stop: 11/16/21 01:14 Last Infusion: 10/18/21 07:11 Dose: 100 mls/hr Documented by: Midazolam HCl (Versed) 125 mg in 250 mls @ 2 mls/hr IV .Q96H PRN; Protocol PRN Reason: Agitation Stop: 11/16/21 06:02 Fentanyl Citrate (Fentanyl Citrate) 2,500 mcg in 250 mls @ 2.5 mls/hr IV .Q96H [facility]; Protocol Stop: 10/31/21 10:59 Last Titration: 10/18/21 07:11 Dose: 25 mcg/hr, 2.5 mls/hr Documented by: Propofol (Diprivan) 1,000 mg in 100 mls @ 18.144 mls/hr IV .Q5H31M [facility]; Protocol Stop: 10/20/21 10:59 Last Titration: 10/18/21 07:11 Dose: 30 mcg/kg/min, 18.1 mls/hr Documented by: Insulin Aspart (Insulin Aspart Per Unit) 0 units SC Q6 [facility] Stop: 11/15/21 07:59 Last Admin: 10/18/21 06:26 Dose: Not Given Documented by: Insulin Glargine (Insulin Glargine Solostar 100 Units/Ml 3 Ml Pen) 5 units SC BID [facility] Stop: 11/10/21 20:59 Last Admin: 10/15/21 20:51 Dose: 5 units Documented by: Lansoprazole (Lansoprazole 30 Mg Soltab) 30 mg PO QAM [facility] Stop: 11/16/21 13:29 Last Admin: 10/17/21 14:10 Dose: 30 mg Documented by: Magnesium Oxide (Magnesium Oxide 400 Mg Tab) 400 mg PO HS [facility] Stop: 11/11/21 20:59 Last Admin: 10/17/21 20:24 Dose: 400 mg Documented by: Metoprolol Succinate (Metoprolol Succ 50mg Ext Rel Tab) 50 mg PO QAM [facility] Stop: 11/12/21 08:59 Last Admin: 10/16/21 09:12 Dose: Not Given Documented by: Metoprolol Succinate (Metoprolol Succ 25mg Ext Rel Tab) 25 mg PO PM [facility] Stop: 11/11/21 20:59 Last Admin: 10/15/21 19:53 Dose: 25 mg Documented by: Midazolam HCl (Midazolam Bolus From Bag) 2 mg IV Q60M PRN PRN Reason: Sedation Stop: 11/16/21 06:02 Miscellaneous (Carbohydrates For Hypoglycemia ) 15 - 30 gm PO UD PRN PRN Reason: Hypoglycemia Protocol Stop: 11/10/21 19:30 Nutritional Formula (Peptamen Intense Vhp 1.0 Christoph 1,000 Ml Bag) 1,000 ml OG [facility]; Protocol Stop: 11/16/21 14:59 Ondansetron HCl (Ondansetron Inj 2 Mg/Ml 2 Ml Vial) 4 mg IV Q6H PRN PRN Reason: nausea, vomiting Stop: 11/10/21 19:44 Last Admin: 10/13/21 03:10 Dose: 4 mg Documented by: Oxcarbazepine (Oxcarbazepine 150 Mg Tablet) 300 mg PO BID [facility] Stop: 11/11/21 20:59 Last Admin: 10/17/21 20:23 Dose: 300 mg Documented by: Propofol (Propofol Bolus From Bag) 20 mg IV Q5M PRN PRN Reason: Sedation Stop: 10/20/21 10:56 Umeclidinium/Vilanterol (Umeclidinium/Vilanterol 62.5/25mcg 7 Puffs/Inhaler) 1 puffs INH DAILY PRN PRN Reason: Shortness Of Breath Stop: 11/10/21 21:48 Last Admin: 10/13/21 08:10 Dose: 1 puffs Documented by: Vitamin D (Cholecalciferol 1,000 Units 25 Mcg Tab) 2,000 units PO QAM [facility] Stop: 11/12/21 08:59 Last Admin: 01/08/22 11:26 Dose: 2,000 units Documented by:
--- NOTE | 2021-10-18 08:01 | XRay Report ---
XR chest 1V portable HISTORY: Respiratory failure. Follow-up. COMPARISON: Chest 10/17/2021. FINDINGS: Endotracheal tube terminates 2 cm from the teresa. Right jugular central venous catheter te rminates at the SVC. Nasogastric tube terminates below the diaphragm. The tip is not included on this study. No pneumothorax. No pleural effusions. Patchy airspace opacity within the left lung base has slightly improved. There is a new focal airspace opacity within the right lung apex. There is associa griselda mild right mediastinal shift. Therefore, this could represent partial collapse of the right upper lobe. IMPRESSION: 1. There is a new focal airspace opacity within the right lung apex with mild right mediastinal shift . This likely represents partial right upper lobe collapse. Consider pulmonary consultation with bron choscopy for further evaluation to assess for mucous plugging. 2. Patchy left basilar airspace opacity has slightly improved. 3. Satisfactory support line placement. 4. These findings were communicated to Tiago Malni at 8:00 AM on 10/18/2021. ACT 112: Negative or not required by law. Electronically signed by: Marcell Marquez M.D. 10/18/2021 8:00 AM
[2021-10-18] MEDS: CHOLECALCIFEROL 1,000 UNITS 25 MCG TAB PO SCH (08:08)
[2021-10-18] MEDS: OXcarbazepine 150 MG TABLET PO SCH ×2 (08:08→21:17)
[2021-10-18] MEDS: LANSOPRAZOLE 30 MG SOLTAB PO SCH (08:08)
[2021-10-18] MEDS: CLOPIDOGREL BISULFATE 75 MG TAB PO SCH (08:08)
[2021-10-18] MEDS ORDERED: POTASSIUM PHOSPHATE 15 MMOL in SODIUM CHLORIDE 0.9% 250 ML IV SCH (09:00)
[2021-10-18] MEDS: [UNRECOGNIZED DRUG - OTHER] IV SCH ×2 (09:59→21:04)
[2021-10-18] MEDS: POTASSIUM ACETATE IV SCH ×2 (09:59→21:04)
[2021-10-18] MEDS: SODIUM BICARBONATE IV SCH ×2 (09:59→21:04)
[2021-10-18] MEDS: CEFEPIME 2,000 MG in SYRINGE 0 ML IV SCH (10:00)
--- NOTE | 2021-10-18 10:29 | Nephrology Progress Note ---
Date of Service October 18, 2021 Assessment & Plan (1) Acute kidney injury superimposed on chronic kidney disease: Plan: Further improving stage one nonoliguric bozena on ckd 4 baseline creatinine 2. acidemia as below; chemistries mostly acceptable though with resuscitation hyperchloremia and metabolic acidosis have emerged. CT w/o obstruction -Pyridium is not appropriate for this patient due to CKD; would not resume even after renal recovery -f/u pending cxs -q24 hr bmp -caution w/ fluid resuscitation -no indication for discussing dialysis (2) Disorders of fluid, electrolyte, and acid-base balance: Plan: marked hyperchloremic metabolic acidosis and pC02 is 26; pH ABG wnl on crit care rounds this am > ordered K phos IV 1 bag; ordered 0900 on 10/11 NS w/ 75 mEq/L Na bic and 10 mE/L K acetate at 100 mL hourly likely to need more potassium >recheck bmp urgent 1300 ordered Admission and Anticipated Discharge Date Admission Date: October 11, 2021 Subjective No acute interval clinical events. Remains intubated Review of Systems Review of Systems: Unobtainable due to endotracheal tube Physical Exam Constitutional: well developed, well nourished, + morbidly obese and + mechanically ventilated Eyes: EOM intact bilaterally ENMT: Ears: no external ear abnormality Nose: no external nose abnormality Mouth: + dry oral mucous membranes Neck: no nuchal rigidity Respiratory: normal respiratory effort Auscultation: + diminished lung sounds Cardiovascular: Rate/Rhythm: regular rhythm and + tachycardic Extremities: no edema Gastrointestinal (Abdomen): Inspection/Auscultation: normal bowel sounds Percussion/Palpation: abdomen soft; abdomen nontender Musculoskeletal: Extremities: strength 5/5 throughout Skin: no rashes, warm and dry Results & Data ([facility]) Vital Signs (Past 12 Hours) Vital Signs Pulse Resp BP Pulse Ox 10/18/21 07:20 78 22 99 10/18/21 04:24 76 24 99 10/18/21 04:00 24 95 10/18/21 03:40 77 24 95 10/18/21 03:30 77 24 96 10/18/21 03:20 76 26 H 95 10/18/21 03:10 77 24 93 10/18/21 03:00 77 24 102/70 94 10/18/21 02:50 82 21 92 10/18/21 02:40 81 24 94 01/09/22 02:30 84 24 94 10/18/21 02:20 85 21 95 10/18/21 02:10 84 24 96 10/18/21 02:00 82 24 108/67 98 10/18/21 01:50 81 21 98 10/18/21 01:40 84 24 99 10/18/21 01:30 84 24 99 10/18/21 01:20 88 21 100 10/18/21 01:10 86 24 97 10/18/21 01:00 82 24 113/67 99 10/18/21 00:50 86 21 100 10/18/21 00:40 85 24 100 10/18/21 00:30 85 24 98 10/18/21 00:20 84 21 100 10/18/21 00:10 85 24 100 10/18/21 00:00 85 24 110/76 100 10/17/21 23:59 85 10/17/21 23:50 82 21 100 10/17/21 23:40 82 24 100 10/17/21 23:30 82 24 100 10/17/21 23:25 82 26 H 98 10/17/21 23:20 81 21 100 10/17/21 23:10 81 24 100 10/17/21 23:01 80 24 107/70 99 10/17/21 23:00 80 24 100 10/17/21 22:50 80 21 100 10/17/21 22:40 79 24 100 10/17/21 22:30 78 24 100 Laboratory Results 10/18/21 05:17 10/18/21 05:17 Diagnostic Findings Chest x-ray 1. There is a new focal airspace opacity within the right lung apex with mild right mediastinal shift. This likely represents partial right upper lobe collapse. Consider pulmonary consultation with bronchoscopy for further evaluation to assess for mucous plugging. 2. Patchy left basilar airspace opacity has slightly improved. 3. Satisfactory support line placement. 4. These findings were communicated to Tiago Malin at 8:00 AM on 10/18/2021.
--- NOTE | 2021-10-18 13:36 | Critical Care Progress Note ---
Date of Service October 18, 2021 Assessment & Plan (1) Acute metabolic encephalopathy: (2) Acute kidney injury superimposed on chronic kidney disease: (3) Acute respiratory acidosis: (4) CKD (chronic kidney disease), stage III: Plan: -- VDRF Likely secondary to metabolic encephalopathy Multifactorial Acute hypercapnia as well as metabolic acidosis playing a role Intubated 10/17/2021 Continue with ventilatory support Keep RASS -1 Daily sedation holidays and SBT's Ammonia [address] head 10/16/2021 negative for any acute abnormality Covid-19 negative 10/11/2021 --Acute renal failure on CKD --> improving Monitor BUNs/creatinine Avoid nephrotoxic medication Follow-up urine lites --Pyelonephritis Continue with antibiotics Initial urine culture negative to date Repeat urine culture 10/16/2021 negative to date --Bipolar disorder On oxcarbazepine --History of anxiety/depression Hold all antidepressant medication for the time being --Diabetes type 2 Continue with ICU hypoglycemia protocol --Prophylaxis VTE: Heparin GI: Lansoprazole Lines: Right IJ, positive Purvis, positive ETT Diet: Clear to begin start tube feeds on her we can call the vp business development Plan: In/out: +2.4 L, urine output 950 Respiratory rate was decreased given the patient was little bit alkalotic Hypokalemia and hypophosphatemia is being replaced. Patient will be again started on bicarb drip as she is having been getting acidotic. I do think that the patient's acidosis is coming from underlying CKD. The right upper lobe on the chest x-ray seems to be atelectatic. We will plan to do bronchoscopy I have personally spent 37 minutes of critical care time in the direct management of this patient. This is a life/limb threatening event. This includes time spent evaluating patient, direct bedside care, chart review, placing orders, interpretation of diagnostic studies, discussion with consultants, patient, and family members, as well as other required patient management activities. This time is exclusive of all separately billable procedures, and teaching time and separate from and in addition to any other critical care service time. Please note the above document was generated using voice recognition software. It may contain grammatical, syntax or spelling errors. Admission and Anticipated Discharge Date Admission Date: October 11, 2021 Subjective Patient seen and examined at bedside. No acute distress. Patient was on propofol and fentanyl at the time of examination She was breathing over the vent. She did not following the commands actively Review of Systems Review of Systems: Unobtainable due to endotracheal tube Physical Exam Physical Exam: Constitutional: No acute distress HEENT: PERRLA, positive ETT Respiratory system: Decreased air entry bilaterally, no wheeze, no rhonchi, positive mild crackles bilateral lower lobe CVS: S1-S2 positive, no murmurs or gallops Abdomen: Soft, nontender, nondistended, positive bowel sounds x4, obese Extremities: +2 pulses bilaterally radialis/ dorsalis pedis, no cyanosis, no edema Neuro: Sedated, breathing over the vent Psych: Unable to assess G/U: Positive Purvis Skin: no rashes, warm and dry Lymphatic: no cervical or axillary lymphadenopathy Results & Data Results & Data ([facility]) Vital Signs (Past 12 Hours) Vital Signs Pulse Resp BP Pulse Ox 10/18/21 12:00 82 16 97 10/18/21 10:20 82 16 97 10/18/21 08:00 78 24 99 10/18/21 07:20 78 22 99 10/18/21 04:24 76 24 99 10/18/21 04:00 24 95 10/18/21 03:40 77 24 95 10/18/21 03:30 77 24 96 10/18/21 03:20 76 26 H 95 10/18/21 03:10 77 24 93 10/18/21 03:00 77 24 102/70 94 10/18/21 02:50 82 21 92 10/18/21 02:40 81 24 94 10/18/21 02:30 84 24 94 10/18/21 02:20 85 21 95 10/18/21 02:10 84 24 96 10/18/21 02:00 82 24 108/67 98 10/18/21 01:50 81 21 98 10/18/21 01:40 84 24 99 Laboratory Results 10/18/21 05:17 10/18/21 13:19 Coding Level of Care Code Critical Care 1st 30-74 mins Diagnoses Acute metabolic encephalopathy G93.41 Acute kidney injury superimposed on chronic kidney disease N17.9; N18.9 Acute respiratory acidosis E87.2 CKD (chronic kidney disease), stage III N18.30 Time Spent (min) 37
--- NOTE | 2021-10-18 13:36 | Procedure Note ---
Procedure Note: Bronchoscopy Procedure PREOPERATIVE DIAGNOSIS: Right upper lobe atelectasis POSTOPERATIVE DIAGNOSIS: Right upper lobe atelectasis PROCEDURE PERFORMED: Flexible fiberoptic bronchoscopy for clearing evidence COMPLICATIONS: None. INDICATION: As above PROCEDURE: Emergent consent was applied. Patient was already intubated. FiO2 was increased to 100% Patient was given total of 75 MCG of fentanyl and 30 mg of propofol Flexible bronchoscope was introduced through the ETT. Secretions were noted even in the ETT which were suctioned out The trachea appeared normal.The bronchoscope was then advanced through the teresa, which was sharp. The scope was then advanced into the right main stem and each segment, subsegement in the right upper lobe, right middle lobe and right lower lobe were visualized. There was moderate amount of thick greenish secretions in the RBI were suctioned out. Right upper lobe high bifurcation but no clear mucous plugging. There were no other findings including evidence of mass, anatomic distortions, or hemorrhage. The bronchoscope was subsequently withdrawn and advanced into the left mainstem. Again, each segment and subsegment was well visualized. No specific masses or other lesions were identified throughout the tracheobronchial tree on the left. There was minimal amount of clear secretion which is suctioned out The bronchoscope was then withdrawn to the mainstem. The area was suctioned clear. The bronchoscope was then withdrawn. The patient tolerated the procedure well without evidence of desaturation or complications. Bronchoalveolar lavage samples were sent for cell count, Gram stain and bacterial culture, AFB culture and smear, fungal culture and smear. Recommendations: Follow up cultures Follow-up chest x-ray Please note the above document was generated using voice recognition software. It may contain grammatical, syntax or spelling errors.Any formal questions or concerns about the content, text or information contained within the body of this dictation should be directly addressed to the provider for clarification.
[2021-10-18 13:49] LABS: BUN Creatinine Ratio 9.6 (10-20); Calcium 7.9 mg/dl (8.5-10.1); Creatinine Clr Calc Pharmacy 24.1 ml/min; Est GFR (African American) 21.7 ml/min; Est GFR (Non-African American) 18.7 ml/min; Potassium 3.3 mmol/L (3.5-5.1)
--- NOTE | 2021-10-18 13:57 | XRay Report ---
XR chest 1V portable HISTORY: Status post bronchi. COMPARISON: Chest 10/18/2021. FINDINGS: Endotracheal tube terminates 1.7 cm from the teresa. Slightly rotated study. No pneumothora x. Improved aeration within the right upper lobe with a small peripheral airspace opacity remaining. Left basilar airspace opacity persists. Nasogastric tube terminates in the stomach. The heart is mild ly enlarged. Right jugular central venous catheter terminates at the superior cavoatrial junction. IMPRESSION: 1. Improved interval improvement in the right upper lobe opacity/atelectasis status post bronchoscopy . A small peripheral airspace opacity persists within the right upper lobe. 2. Left lower lobe focal airspace opacity persists. 3. No pneumothorax. 4. Satisfactory support line placement. ACT 112: Negative or not required by law. Electronically signed by: Marcell Marquez M.D. 10/18/2021 1:56 PM
[2021-10-18 19:17] LABS: Magnesium 1.8 mg/dl (1.8-2.4); Phosphorus 4.2 mg/dl (2.5-4.9)
[2021-10-18] MEDS: POTASSIUM ACETATE/NSS 20 MEQ/110 ML BAG IV SCH (21:04)
[2021-10-18] MEDS: MAGNESIUM OXIDE 400 MG TAB PO SCH (21:17)
[2021-10-18] MEDS: ATORVASTATIN 40 MG TAB PO SCH (21:17)
[2021-10-19] MEDS: propofoL 1,000 MG/100 ML VIAL IV SCH ×3 (00:32→09:13)
[2021-10-19] MEDS: POTASSIUM ACETATE/NSS 20 MEQ/110 ML BAG IV SCH (00:32)
[2021-10-19] MEDS: HEPARIN SOD 5,000 UNIT/0.5 ML VIAL SQ SCH ×4 (00:33→22:00)
[2021-10-19] MEDS: INSULIN ASPART PER UNIT SC SCH ×4 (00:38→18:05)
[2021-10-19 03:46] LABS: iSTAT Art Bld Gas pCO2 Correct 37 mmHg (35-46); iSTAT Arterial Blood Gas HCO3 24 meg/L (19-24); iSTAT Arterial Blood Gas pCO2 36 mmHg (35-46); iSTAT Arterial Blood Gas pH 7.43 (7.35-7.45); iSTAT Arterial Blood Gas pO2 71 mmHg (80-95); iSTAT Arterial Blood Gas pO2 C 72; iSTAT Carbon Dioxide 25 mmol/L (24-31); iSTAT FiO2 30 %; iSTAT Hematocrit 22 % (37-47); iSTAT Hemoglobin 7.5 g/dl (12.0-16.0); iSTAT Potassium 3.4 mmol/L (3.3-5.0); iSTAT Site Art Line; iSTAT Sodium 142 mmol/L (135-144)
[2021-10-19] MEDS: POTASSIUM ACETATE IV SCH ×2 (06:10→16:00)
[2021-10-19] MEDS: SODIUM BICARBONATE IV SCH ×2 (06:10→16:00)
[2021-10-19] MEDS: [UNRECOGNIZED DRUG - OTHER] IV SCH ×2 (06:10→16:00)
[2021-10-19 06:14] LABS: Basophils # (auto) 0.03 K/uL (0-0.2); Basophils % (auto) 0.5 %; Eosinophils # (auto) 0.17 K/uL (0-0.5); Eosinophils % (auto) 2.6 %; Hematocrit (blood only) 24.5 % (37-47); Hemoglobin 7.5 g/dL (12.0-16.0); Immature Granulocytes % (auto) 4.5 %; Lymphocytes # (auto) 0.83 K/uL (1.2-3.4); Lymphocytes % (auto) 12.5 %; Mean Corpuscular Hemoglobin 29.5 pg (25-34); Mean Corpuscular Hgb Conc 30.6 g/dL (32-36); Mean Corpuscular Volume 96.5 fL (80-100); Mean Platelet Volume 9.5 fL (7.4-10.4); Monocytes # (auto) 0.88 K/uL (0.11-0.59); Monocytes % (auto) 13.3 %; Neutrophils # (auto) 4.43 K/uL (1.4-6.5); Neutrophils % (auto) 66.6 %; Platelet Count 227 K/uL (130-400); RDW Coefficient of Variation 14.4 % (11.5-14.5); RDW Standard Deviation 50.7 fL (36.4-46.3); Red Blood Count 2.54 M/uL (4.2-5.4); White Blood Count 6.64 K/uL (4.8-10.8)
[2021-10-19 06:37] LABS: BUN Creatinine Ratio 11.4 (10-20); Calcium 8.3 mg/dl (8.5-10.1); Creatinine Clr Calc Pharmacy 27.4 ml/min; Est GFR (African American) 25.6 ml/min; Est GFR (Non-African American) 22.1 ml/min; Potassium 3.4 mmol/L (3.5-5.1)
[2021-10-19 06:45] LABS: RBC Morphology Unremarkable
[2021-10-19 06:49] LABS: Phosphorus 2.5 mg/dl (2.5-4.9)
[2021-10-19] MEDS: LANSOPRAZOLE 30 MG SOLTAB PO SCH (07:50)
[2021-10-19] MEDS: CEFEPIME 2,000 MG in SYRINGE 0 ML IV SCH (07:50)
[2021-10-19] MEDS: OXcarbazepine 150 MG TABLET PO SCH (07:50)
[2021-10-19] MEDS: CHOLECALCIFEROL 1,000 UNITS 25 MCG TAB PO SCH (07:50)
--- NOTE | 2021-10-19 08:19 | XRay Report ---
XR chest 1V portable CLINICAL HISTORY: f/u COMPARISON STUDY: Chest radiograph October 18, 2021. FINDINGS: Tip of endotracheal tube is 2.1 cm above the teresa. Tip of nasogastric tube is below the l ower aspect of this image but at least within the body of the stomach. Right internal jugular central line is in place. Left ureteral stent is partially imaged. There are cholecystectomy clips. A hiatal hernia is present. Cardiomediastinal silhouette is stable. Right lower lung airspace opacity is slig htly increased. Right upper lobe aeration has slightly improved. Left basilar opacity persists. IMPRESSION: 1. Satisfactory positioning of lines and tubes. 2. Bilateral airspace opacities, as described above. Increase in right lower lung opacity which could reflect pneumonia or atelectasis. ACT 112: Negative or not required by law. Electronically signed by: Abdirashid Motta M.D. 10/19/2021 8:18 AM
--- NOTE | 2021-10-19 08:26 | Critical Care Progress Note ---
Date of Service October 19, 2021 Assessment & Plan (1) Acute metabolic encephalopathy: (2) Acute kidney injury superimposed on chronic kidney disease: (3) Acute respiratory acidosis: (4) CKD (chronic kidney disease), stage III: Plan: Impression: 66-year-old female admitted 10/11/2021 with obstructive pyelonephritis. She underwent cystoscopy with stent placement 10/12/2021. She was transferred to the ICU 10/16/2021 with mixed metabolic respiratory acidosis and encephalopathy. She failed to improve with BiPAP and was subsequently intubated 10/17/2021 24-hour events: Patient underwent bronchoscopy due to questionable right upper lobe atelectasis. No endobronchial lesion was identified. There were mucoid secretions present in the bronchus intermedius. She is on minimal vent settings this morning. She apparently becomes agitated with weaning of sedation. Recommendations: 1. Neurologic: Metabolic encephalopathy secondary to acid-base disturbances. Ammonia TSH and CT of the head were unremarkable. Currently sedated on propofol and Versed/fentanyl. She appears to be following commands today. We will discontinue fentanyl and pursue trial of ventilator liberation if the patient's mental status allows. Continue Trileptal for bipolar disorder. 2. Cardiovascular: Holding beta-velma given low blood pressures. Tachycardic. Was on beta-blockers and outpatient and would like to restart as soon as pressures allow. Continue Plavix 3. Pulmonary: Minimal vent settings currently. Patient was intubated due to obtundation. If mental status clears, will liberate from mechanical ventilator today and reassess. Likely degree of underlying sleep disordered breathing versus obesity hypoventilation syndrome. Avoid sedatives or respiratory depressant medications as much as possible. May need to extubate to CPAP or BiPAP 4. ID: Day #9 antibiotics, completed 5 days of Rocephin and currently day #4 cefepime. Did receive 1 dose of vancomycin 10/16. Blood cultures no growth to date. Urine cultures no growth to date. White blood cell count normal. Low- grade fever 48 hours ago. At this point time I think antibiotics can be discontinued and the patient followed clinically. 5. GI: N.p.o. for now pending liberation from mechanical ventilation. 6. Renal: Acute on chronic renal failure with progressive metabolic and respiratory acidosis. Blood gases better today. Appreciate nephrology assistance. Will defer electrolytes IV fluids and bicarb to them. Suspect a potential postobstructive component superimposed on chronic kidney disease at baseline. Serum creatinine at 2.2 today. Electrolytes stable. Acid-base status improved. Will need to follow-up with urology in the outpatient setting given indwelling stent. 7. Heme/Onc: Anemia, progressive this hospitalization, no signs of bleeding. Reported history of iron deficiency. Should have outpatient endoscopy performed if not up-to-date. No acute indication for transfusion currently. 8. Endocrine: Glycemic control per protocol. --Prophylaxis VTE: Heparin GI: Lansoprazole Lines: Right IJ, positive Purvis, positive ETT Discussed with patient and ICU nurse at bedside as well as on multidisciplinary rounds. A total of 40 minutes was spent evaluating managing and coordinating care for this patient. If she progresses to ventilator liberation, will need PT OT out of bed and speech therapy evaluation. Please note the above document was generated using voice recognition software. It may contain grammatical, syntax or spelling errors. Admission and Anticipated Discharge Date Admission Date: October 11, 2021 Subjective Intubated and sedated Review of Systems Review of Systems: Unobtainable due to endotracheal tube Results & Data Results & Data ([facility]) Vital Signs (Past 12 Hours) Vital Signs Pulse Resp Pulse Ox 10/19/21 07:20 96 H 16 97 10/19/21 04:05 103 H 18 94 10/19/21 04:00 20 94 10/19/21 01:00 111 H 19 91 10/19/21 00:00 101 H 16 100 10/18/21 23:00 96 H 16 100 10/18/21 22:44 99 H 20 100 10/18/21 22:00 98 H 16 98 10/18/21 21:00 100 H 16 100 Critical Care Results & Data Vital Signs (Past 12 Hours) Vital Signs Pulse Resp Pulse Ox 10/19/21 07:20 96 H 16 97 10/19/21 04:05 103 H 18 94 10/19/21 04:00 20 94 10/19/21 01:00 111 H 19 91 10/19/21 00:00 101 H 16 100 10/18/21 23:00 96 H 16 100 10/18/21 22:44 99 H 20 100 10/18/21 22:00 98 H 16 98 10/18/21 21:00 100 H 16 100 Lab & Micro Results (Past 24 Hours) RBC 2.54 M/uL (4.2-5.4) L 10/19/21 WBC 6.64 K/uL (4.8-10.8) 10/19/21 Hgb 7.5 g/dL (12.0-16.0) L 10/19/21 Hct 24.5 % (37-47) L 10/19/21 MCV 96.5 fL (80-100) 10/19/21 MCH 29.5 pg (25-34) 10/19/21 MCHC 30.6 g/dL (32-36) L 10/19/21 RDW Standard Deviation 50.7 fL (36.4-46.3) H 10/19/21 RDW Coefficient of Variation 14.4 % (11.5-14.5) 10/19/21 Plt Count 227 K/uL (130-400) 10/19/21 MPV 9.5 fL (7.4-10.4) 10/19/21 Neutrophils (%) (Auto) 66.6 % 10/19/21 Lymphocytes (%) (Auto) 12.5 % 10/19/21 Monocytes # (Auto) 0.88 K/uL (0.11-0.59) H 10/19/21 Eosinophils # (Auto) 0.17 K/uL (0-0.5) 10/19/21 Immature Granulocyte % (Auto) 4.5 % 10/19/21 Neutrophils # (Auto) 4.43 K/uL (1.4-6.5) 10/19/21 Lymphocytes # (Auto) 0.83 K/uL (1.2-3.4) L 10/19/21 Monocytes # (Auto) 0.88 K/uL (0.11-0.59) H 10/19/21 Eosinophils # (Auto) 0.17 K/uL (0-0.5) 10/19/21 Basophils # (Auto) 0.03 K/uL (0-0.2) 10/19/21 Immature Granulocyte # (Auto) 0.30 K/uL (0.00-0.02) H 10/19/21 Red Blood Cell Morphology Unremarkable 10/19/21 Na 142 mmol/L (136-145) 10/19/21 K 3.4 mmol/L (3.5-5.1) L 10/19/21 Cl 109 mmol/L (98-107) H 10/19/21 CO2 26 mmol/L (21-32) 10/19/21 Anion Gap 7.0 (3-11) 10/19/21 BUN 25 mg/dl (7-18) H 10/19/21 Creatinine 2.22 mg/dl (0.6-1.2) H 10/19/21 Estimated GFR ( Amer) 25.6 ml/min 10/19/21 Estimated GFR (Non-Af Amer) 22.1 ml/min 10/19/21 BUN/Creatinine Ratio 11.4 (10-20) 10/19/21 Glu 170 mg/dl (70-99) H 10/19/21 Ca 8.3 mg/dl (8.5-10.1) L 10/19/21 Phosphorus Level 2.5 mg/dl (2.5-4.9) 10/19/21 Mg 2.0 mg/dl (1.8-2.4) 10/19/21 05:56 10/19/21 Calcium Level 8.3 mg/dl (8.5-10.1) L 10/19/21 05:56 10/19/21 Gabriele Test NA 10/19/21 03:31 10/19/21 Microbiology 10/18/21 13:30 Fungal Smear - Final Ba Lavage,Right Main Stem 10/18/21 13:30 Gram Stain - Final Ba Lavage,Right Main Stem 10/16/21 16:00 Urine Culture - Final Urine,Indwelling Cath Yeast 10/16/21 08:15 Aerobic Blood Culture - Preliminary Blood No growth in Aerobic bottle after 48 hours. Anaerobic Blood Culture - Final 10/16/21 08:07 Aerobic Blood Culture - Preliminary Blood No growth in Aerobic bottle after 48 hours. Anaerobic Blood Culture - Preliminary No growth in Anaerobic bottle after 48 hours. Diagnostic Findings (Past 24 Hours) Chest X-Ray 10/18/21 13:28 XR chest 1V portable HISTORY: Status post bronchi. COMPARISON: Chest 10/18/2021. FINDINGS: Endotracheal tube terminates 1.7 cm from the teresa. Slightly rotated study. No pneumothorax. Improved aeration within the right upper lobe with a small peripheral airspace opacity remaining. Left basilar airspace opacity persists. Nasogastric tube terminates in the stomach. The heart is mildly enlarged. Right jugular central venous catheter terminates at the superior cavoatrial junction. IMPRESSION: 1. Improved interval improvement in the right upper lobe opacity/atelectasis status post bronchoscopy. A small peripheral airspace opacity persists within the right upper lobe. 2. Left lower lobe focal airspace opacity persists. 3. No pneumothorax. 4. Satisfactory support line placement. ACT 112: Negative or not required by law. Electronically signed by: Marcell Marquez M.D. 10/18/2021 1:56 PM Chest X-Ray 10/19/21 07:00 XR chest 1V portable CLINICAL HISTORY: f/u COMPARISON STUDY: Chest radiograph October 18, 2021. FINDINGS: Tip of endotracheal tube is 2.1 cm above the teresa. Tip of nasogastric tube is below the lower aspect of this image but at least within the body of the stomach. Right internal jugular central line is in place. Left ureteral stent is partially imaged. There are cholecystectomy clips. A hiatal hernia is present. Cardiomediastinal silhouette is stable. Right lower lung airspace opacity is slightly increased. Right upper lobe aeration has slightly improved. Left basilar opacity persists. IMPRESSION: 1. Satisfactory positioning of lines and tubes. 2. Bilateral airspace opacities, as described above. Increase in right lower lung opacity which could reflect pneumonia or atelectasis. ACT 112: Negative or not required by law. Electronically signed by: Abdirashid Motta M.D. 10/19/2021 8:18 AM I & O Totals 24 Hours 10/18/21 10/19/21 10/20/21 06:59 06:59 06:59 Intake Total 2997.356 / 2997.356 4305.933 / 4305.933 144.189 / 144.189 Output Total 950 / 950 1700 / 1700 Balance 2047.356 / 2047.356 2605.933 / 2605.933 144.189 / 144.189 Cumulative 10/11/21 13:26 thru 10/19/21 08:01 Intake Total .228 Output Total 5155 Balance 56992.228 RT Ventilator Mngmt (Last Documented) Ventilator Ordered Settings Ventilator Support Mode CPAP 10/19/21 07:20 Respiratory Rate 16 10/19/21 07:20 Ventilator Tidal Volume 385 10/19/21 04:05 Setting Minute Ventilation 6.1 10/19/21 07:20 Ventilator Positive Pressure 10 10/19/21 07:20 Support Setting Positive End Expiratory 5 10/19/21 07:20 Pressure Fraction of Inspired Oxygen 30 10/19/21 07:20 Machine Comment RR to 16 and VT to 385 done by 10/18/21 10:20 Kaolimpia Ventilator - PT Measurements Respiratory Rate 16 Exhaled Tidal Volume 368 Minute Ventilation 6.1 Peak Inspiratory Airway 18 Pressure Plateau Pressure 13.8 Respiratory Cycle Inspiratory: 1:3.4 Expiratory Ratio Inspiratory Phase Time 0.90 End-Tidal CO2 41 Static Lung Compliance 44.20 Dynamic Lung Compliance 28.31 Normal Static Lung Compliance 47.00 Patient Measurements Comment tried PS but patient was going apneic Coding Level of Care Code 79001 Subseq Hosp Care Lvl 3 Diagnoses Acute metabolic encephalopathy G93.41 Acute kidney injury superimposed on chronic kidney disease N17.9; N18.9 Acute respiratory acidosis E87.2 CKD (chronic kidney disease), stage III N18.30
--- NOTE | 2021-10-19 10:49 | Hospitalist Progress Note ---
Date of Service October 19, 2021 Assessment & Plan (1) Acute metabolic encephalopathy: (2) Obstructive pyelonephritis: (3) Ureteral calculus: (4) Complicated UTI (urinary tract infection): (5) Pain due to ureteral stent: Plan: 65 yo F with DM II, COPD, CKD III, HTN, bipolar disorder, chronic respiratory failure on home O2 (2L), laparoscopic colectomy total w/o proctectomy w/ ileostomy and ileoproctostomy in 2010 for colon Ca presented 10/11/21 w/ fever, chills, and abdominal pain. CT ABD/pelvis on admission showed 5 mm obstructing calculus just above the left vesicoureteral junction causing minimal left hydroureteronephrosis and possible evidence of pyelonephritis. S/p cystoscopy with left retrograde pyelogram aspiration and stent placement by Dr. Adam on 10/12 Patient had 2 negative urine cultures and negative blood cultures however given clinical picture concerning for infectious process, patient has remained on Rocephin Patient continued to have some stent discomfort with urination however improved with addition of Tylenol #3. Purvis removed on 10/13. Urology repeated renal ultrasound to evaluate for possible hydronephrosis on 10/15 in setting of worsening renal function - no evidence of hydro Significant clinical decline as of AM on 10/16/21 - transferred to ICU for closer monitoring due to obtunded state with respiratory acidosis with pH of 7.16, Also febrile and hypotensive Blood cultures obtained, abx broadened to cefepime and vanco (vanco discontinued after negative mrsa swab) Urology repeated CT abd/pelvis showing left nephroureteral stent with remaining pelviectasis and left cortical thinning. Bilateral nephrolithiasis Per urology, no hydro or obstruction. Bladder is decompressed. No urology intervention at this time. Repeat urine cultures Obtaining a head CT wo con due to reported fall by RN. Appeared that patient slid off of commode but unwitnessed. CT head negative Patient was started on BiPAP, however 10/17 AM, still significant respiratory acidosis, with low pH and elevated PCO2. Also patient continued to be obtunded therefore patient was intubated on 10/17/21 On October 18, patient underwent bronchoscopy October 19, patient extubated (6) Acute respiratory acidosis: Plan: Obtunded AM, 10/16/21. ABG with pH of 7.16, pCO2 of 59, bicarb 20. Also with worsening renal function History of CALI but not on CPAP - on chronic 2L NC O2 Last received narcotics on 10/15 at 1300 Bipap started at 0600 - continue. Management per research pharmacist Bicarb drip initiated Despite being on BiPAP, patient obtunded on 8 a.m., with low pH, and elevated PCO2, therefore decision made to intubate the patient. Electrolytes improved, nephrology following (7) Acute kidney injury superimposed on chronic kidney disease: Plan: Worsening renal function in past few days from 2.1 --> 2.4 --> 3.[address] abd/pelvis 10/16 showing left nephroureteral stent with remaining pelviectasis and left cortical thinning. No hydro or obstruction. Bladder is decompressed Consulting nephrology for further recommendations Cr improved to 2.5 Renal function improved, nephrology following (8) Chronic respiratory failure with hypoxia: Plan: Baseline - chronic 2 L of oxygen On 10/17 intubated due to altered mental status, respiratory acidosis 10/19 -patient extubated, currently on 6 L of supplemental O2 10/18 CXR 1. There is a new focal airspace opacity within the right lung apex with mild right mediastinal shift. This likely represents partial right upper lobe collapse. Consider pulmonary consultation with bronchoscopy for further eval uation to assess for mucous plugging. 2. Patchy left basilar airspace opacity has slightly improved. 10/18 underwent bronchoscopy - Patient underwent bronchoscopy due to questionable right upper lobe atelectasis. No endobronchial lesion was identified. There were mucoid secretions present in the bronchus intermedius. She is on minimal vent settings this morning. 10/19 CXR 1. Satisfactory positioning of lines and tubes. 2. Bilateral airspace opacities, as described above. Increase in right lower lung opacity which could reflect pneumonia or atelectasis. (9) Morbid obesity with BMI of 40.0-44.9, adult: Plan: BMI 44.9 Lifestyle modifications encouraged (10) Diabetes mellitus, type 2: Plan: Hgb A1c 6.5 10/12/2021 Hold oral agents and utilize Lantus and NovoLog per protocol while hospitalized (11) Anemia: Plan: Hgb 11.6 --> 9.4 --> 10.2 --> 8.8 --> 9.6 --> 8.9 --> 7.7 No signs of bleeding, poss. dilutional in comb. of frequent blood draws FOBT ordered (12) DVT prophylaxis: Plan: SQ heparin Dispo - ICU. Admission and Anticipated Discharge Date Admission Date: October 11, 2021 Subjective Patient seen in follow-up of altered mental status Initially admitted for pyelonephritis, underwent cystoscopy and stent placement on October 12 On 10/16 patient was transferred to ICU, as she was obtunded, pH low, and CO2 elevated. She was started on BiPAP however without much improvement next morning. Therefore patient was intubated on 10/17. She underwent bronchoscopy yesterday, October 18. Currently patient is lying in bed, she was extubated earlier today (10/19), currently on 6 L of supplemental oxygen via nasal cannula She opens her eyes, follows simple commands, she keeps saying "I am alright" and "what happened", does not answer anything else Review of Systems Review of Systems: Unobtainable due to cognitive status Physical Exam Physical Exam: Constitutional:L morbidly obese F, in NAD (just extub ated), now on 6L O 2 Eyes: opens eyes, PERRL, EOMI ENMT: Ears: no external ear abnormality N ose: no external n ose abnormality M outh: + dry oral m ucous membranes Neck: R IJ placed Respiratory: + rhonchous breat h sounds Cardiovascular:L Rate/Rhythm: regul ar rhythm , slight ly tachycardic Gastrointestinal ( Abdomen): normal bowel sound s, soft, obese Musculoskeletal: no LE edema Skin: no rashes, warm an d dry Neurologic: Awake, follows sim ple commands, does not answer all qu estions appropriat merced Results & Data Results & Data ([facility]) Vital Signs (Past 12 Hours) Vital Signs Temp Pulse Resp Pulse Ox 10/19/21 09:00 101 H 22 89 L 10/19/21 08:00 37.2 C 95 H 18 97 10/19/21 07:20 96 H 16 97 10/19/21 07:00 97 H 17 98 10/19/21 06:45 97 H 16 99 10/19/21 04:05 103 H 18 94 10/19/21 04:00 20 94 10/19/21 01:00 111 H 19 91 10/19/21 00:00 101 H 16 100 10/18/21 23:00 96 H 16 100 Laboratory Results 10/19/21 10/19/21 10/19/21 Range/Units 06:06 05:56 05:56 WBC 6.64 (4.8-10.8) K/uL RBC 2.54 L (4.2-5.4) M/uL Hgb 7.5 L (12.0-16.0) g/dL POC Hgb (12.0-16.0) g/dl Hct 24.5 L (37-47) % POC Hct (37-47) % MCV 96.5 (80-100) fL MCH 29.5 (25-34) pg MCHC 30.6 L (32-36) g/dL RDW Std Deviation 50.7 H (36.4-46.3) fL RDW Coeff of Teresa 14.4 (11.5-14.5) % Plt Count 227 (130-400) K/uL MPV 9.5 (7.4-10.4) fL Immature Gran % (Auto) 4.5 % Neut % (Auto) 66.6 % Lymph % (Auto) 12.5 % [place] % (Auto) 13.3 % Eos % (Auto) 2.6 % Baso % (Auto) 0.5 % Neut # (Auto) 4.43 (1.4-6.5) K/uL Lymph # (Auto) 0.83 L (1.2-3.4) K/uL [place] # (Auto) 0.88 H (0.11-0.59) K/uL Eos # (Auto) 0.17 (0-0.5) K/uL Baso # (Auto) 0.03 (0-0.2) K/uL Immature Gran # (Auto) 0.30 H (0.00-0.02) K/uL RBC Morphology Unremarkable Sample Site POC pH (7.35-7.45) POC pCO2 (35-46) mmHg POC pO2 (80-95) mmHg POC HCO3 (19-24) glenna/L POC Total CO2 (24-31) mmol/L POC Base Excess (-9-1.8) glenna/L ABG pH (Temp Correct) (7.35-7.45) ABG pCO2 (Temp Corrct (35-46) mmHg POC ABG pO2 at Pt Temp POC ABG O2 Sat (90-95) % Gabriele Test O2 Delivery Device POC O2 Rate Minute Ventilation POC FiO2 % Tidal Volume PEEP POC Sodium (135-144) mmol/L Sodium 142 (136-145) mmol/L POC Potassium (3.3-5.0) mmol/L Potassium 3.4 L (3.5-5.1) mmol/L Chloride 109 H (98-107) mmol/L Carbon Dioxide 26 (21-32) mmol/L Anion Gap 7.0 (3-11) BUN 25 H (7-18) mg/dl Creatinine 2.22 H D (0.6-1.2) mg/dl Est Cr Clr Drug Dosing 27.4 ml/min Est GFR ( Amer) 25.6 ml/min Est GFR (Non-Af Amer) 22.1 ml/min BUN/Creatinine Ratio 11.4 (10-20) Glucose 170 H (70-99) mg/dl POC Glucose 168 H (70-99) mg/dl Calcium 8.3 L (8.5-10.1) mg/dl Phosphorus 2.5 D (2.5-4.9) mg/dl Magnesium 2.0 (1.8-2.4) mg/dl Legionella Source Legionella Culture Resp Virus Cult Rapid Viral Specimen Source 10/19/21 10/19/21 10/18/21 Range/Units 03:31 00:35 17:55 WBC (4.8-10.8) K/uL RBC (4.2-5.4) M/uL Hgb (12.0-16.0) g/dL POC Hgb 7.5 L (12.0-16.0) g/dl Hct (37-47) % POC Hct 22 L (37-47) % MCV (80-100) fL MCH (25-34) pg MCHC (32-36) g/dL RDW Std Deviation (36.4-46.3) fL RDW Coeff of Teresa (11.5-14.5) % Plt Count (130-400) K/uL MPV (7.4-10.4) fL Immature Gran % (Auto) % Neut % (Auto) % Lymph % (Auto) % [place] % (Auto) % Eos % (Auto) % Baso % (Auto) % Neut # (Auto) (1.4-6.5) K/uL Lymph # (Auto) (1.2-3.4) K/uL [place] # (Auto) (0.11-0.59) K/uL Eos # (Auto) (0-0.5) K/uL Baso # (Auto) (0-0.2) K/uL Immature Gran # (Auto) (0.00-0.02) K/uL RBC Morphology Sample Site Art Line POC pH 7.43 (7.35-7.45) POC pCO2 36 (35-46) mmHg POC pO2 71 L (80-95) mmHg POC HCO3 24 (19-24) glenna/L POC Total CO2 25 (24-31) mmol/L POC Base Excess 0.0 (-9-1.8) glenna/L ABG pH (Temp Correct) 7.430 (7.35-7.45) ABG pCO2 (Temp Corrct 37 (35-46) mmHg POC ABG pO2 at Pt Temp 72 POC ABG O2 Sat 95.0 (90-95) % Gabriele Test NA O2 Delivery Device Ventilator POC O2 Rate 16 Minute Ventilation 6.5 POC FiO2 30 % Tidal Volume 385 PEEP 5 POC Sodium 142 (135-144) mmol/L Sodium (136-145) mmol/L POC Potassium 3.4 (3.3-5.0) mmol/L Potassium (3.5-5.1) mmol/L Chloride (98-107) mmol/L Carbon Dioxide (21-32) mmol/L Anion Gap (3-11) BUN (7-18) mg/dl Creatinine (0.6-1.2) mg/dl Est Cr Clr Drug Dosing ml/min Est GFR ( Amer) ml/min Est GFR (Non-Af Amer) ml/min BUN/Creatinine Ratio (10-20) Glucose (70-99) mg/dl POC Glucose 158 H 129 H (70-99) mg/dl Calcium (8.5-10.1) mg/dl Phosphorus (2.5-4.9) mg/dl Magnesium (1.8-2.4) mg/dl Legionella Source Legionella Culture Resp Virus Cult Rapid Viral Specimen Source 01/09/22 01/09/22 01/09/22 Range/Units 13:30 13:19 13:19 WBC (4.8-10.8) K/uL RBC (4.2-5.4) M/uL Hgb (12.0-16.0) g/dL POC Hgb (12.0-16.0) g/dl Hct (37-47) % POC Hct (37-47) % MCV (80-100) fL MCH (25-34) pg MCHC (32-36) g/dL RDW Std Deviation (36.4-46.3) fL RDW Coeff of Teresa (11.5-14.5) % Plt Count (130-400) K/uL MPV (7.4-10.4) fL Immature Gran % (Auto) % Neut % (Auto) % Lymph % (Auto) % [place] % (Auto) % Eos % (Auto) % Baso % (Auto) % Neut # (Auto) (1.4-6.5) K/uL Lymph # (Auto) (1.2-3.4) K/uL [place] # (Auto) (0.11-0.59) K/uL Eos # (Auto) (0-0.5) K/uL Baso # (Auto) (0-0.2) K/uL Immature Gran # (Auto) (0.00-0.02) K/uL RBC Morphology Sample Site POC pH (7.35-7.45) POC pCO2 (35-46) mmHg POC pO2 (80-95) mmHg POC HCO3 (19-24) glenna/L POC Total CO2 (24-31) mmol/L POC Base Excess (-9-1.8) glenna/L ABG pH (Temp Correct) (7.35-7.45) ABG pCO2 (Temp Corrct (35-46) mmHg POC ABG pO2 at Pt Temp POC ABG O2 Sat (90-95) % Gabriele Test O2 Delivery Device POC O2 Rate Minute Ventilation POC FiO2 % Tidal Volume PEEP POC Sodium (135-144) mmol/L Sodium 143 (136-145) mmol/L POC Potassium (3.3-5.0) mmol/L Potassium 3.3 L (3.5-5.1) mmol/L Chloride 110 H (98-107) mmol/L Carbon Dioxide 22 (21-32) mmol/L Anion Gap 12.0 H (3-11) BUN 25 H (7-18) mg/dl Creatinine 2.56 H (0.6-1.2) mg/dl Est Cr Clr Drug Dosing 24.1 ml/min Est GFR ( Amer) 21.7 ml/min Est GFR (Non-Af Amer) 18.7 ml/min BUN/Creatinine Ratio 9.6 L (10-20) Glucose 146 H (70-99) mg/dl POC Glucose (70-99) mg/dl Calcium 7.9 L (8.5-10.1) mg/dl Phosphorus 4.2 D (2.5-4.9) mg/dl Magnesium 1.8 (1.8-2.4) mg/dl Legionella Source Pending Legionella Culture Pending Resp Virus Cult Rapid Pending Viral Specimen Source Pending 10/18/21 Range/Units 12:37 WBC (4.8-10.8) K/uL RBC (4.2-5.4) M/uL Hgb (12.0-16.0) g/dL POC Hgb (12.0-16.0) g/dl Hct (37-47) % POC Hct (37-47) % MCV (80-100) fL MCH (25-34) pg MCHC (32-36) g/dL RDW Std Deviation (36.4-46.3) fL RDW Coeff of Teresa (11.5-14.5) % Plt Count (130-400) K/uL MPV (7.4-10.4) fL Immature Gran % (Auto) % Neut % (Auto) % Lymph % (Auto) % [place] % (Auto) % Eos % (Auto) % Baso % (Auto) % Neut # (Auto) (1.4-6.5) K/uL Lymph # (Auto) (1.2-3.4) K/uL [place] # (Auto) (0.11-0.59) K/uL Eos # (Auto) (0-0.5) K/uL Baso # (Auto) (0-0.2) K/uL Immature Gran # (Auto) (0.00-0.02) K/uL RBC Morphology Sample Site POC pH (7.35-7.45) POC pCO2 (35-46) mmHg POC pO2 (80-95) mmHg POC HCO3 (19-24) glenna/L POC Total CO2 (24-31) mmol/L POC Base Excess (-9-1.8) glenna/L ABG pH (Temp Correct) (7.35-7.45) ABG pCO2 (Temp Corrct (35-46) mmHg POC ABG pO2 at Pt Temp POC ABG O2 Sat (90-95) % Gabriele Test O2 Delivery Device POC O2 Rate Minute Ventilation POC FiO2 % Tidal Volume PEEP POC Sodium (135-144) mmol/L Sodium (136-145) mmol/L POC Potassium (3.3-5.0) mmol/L Potassium (3.5-5.1) mmol/L Chloride (98-107) mmol/L Carbon Dioxide (21-32) mmol/L Anion Gap (3-11) BUN (7-18) mg/dl Creatinine (0.6-1.2) mg/dl Est Cr Clr Drug Dosing ml/min Est GFR ( Amer) ml/min Est GFR (Non-Af Amer) ml/min BUN/Creatinine Ratio (10-20) Glucose (70-99) mg/dl POC Glucose 128 H (70-99) mg/dl Calcium (8.5-10.1) mg/dl Phosphorus (2.5-4.9) mg/dl Magnesium (1.8-2.4) mg/dl Legionella Source Legionella Culture Resp Virus Cult Rapid Viral Specimen Source Medications Administered Current Inpatient Medications Albuterol (Albuterol Hfa 8 Gm Inhaler) 2 puffs INH Q4H PRN PRN Reason: Shortness Of Breath Stop: 11/15/21 10:54 Atorvastatin Calcium (Atorvastatin 40 Mg Tab) 40 mg PO QPM MARLA Stop: 11/11/21 20:59 Last Admin: 10/18/21 21:17 Dose: 40 mg Documented by: Clopidogrel Bisulfate (Clopidogrel Bisulfate 75 Mg Tab) 75 mg PO QPM MARLA Stop: 11/10/21 21:33 Last Admin: 10/18/21 08:08 Dose: 75 mg Documented by: Dextrose (Dextrose 50% 50 Ml Syringe) 25 - 50 ml IV UD PRN; Protocol PRN Reason: Hypoglycemia Protocol Stop: 11/10/21 19:30 Doxepin HCl (Doxepin Hcl 50 Mg Capsule) 50 mg PO HS [facility] Stop: 11/11/21 20:59 Last Admin: 10/15/21 19:52 Dose: 50 mg Documented by: Duloxetine HCl (Duloxetine Hcl 60 Mg Cap) 60 mg PO DAILY [facility] Stop: 11/12/21 08:59 Last Admin: 10/16/21 09:12 Dose: Not Given Documented by: Fentanyl Citrate (Fentanyl Bolus From Bag) 50 mcg IV Q60M PRN PRN Reason: Pain or Agitation Stop: 10/31/21 10:52 Fluticasone Furoate (Fluticasone Furoate 100mcg 14 Puffs/Inhaler) 1 puffs INH DAILY PRN PRN Reason: Shortness Of Breath Stop: 11/10/21 21:47 Last Admin: 10/13/21 08:11 Dose: 1 puffs Documented by: Glucagon (Glucagon For Inj 1 Mg Vial) 1 mg SQ UD PRN; Protocol PRN Reason: Hypoglycemia Protocol Stop: 11/10/21 19:30 Glucose (Glucose 10 Tabs/Tube) 4 - 8 tabs PO UD PRN; Protocol PRN Reason: Hypoglycemia Protocol Stop: 11/10/21 19:30 Glucose (Glucose 40% Gel 15 Gm Tube) 15 - 30 gm PO UD PRN; Protocol PRN Reason: Hypoglycemia Protocol Stop: 11/10/21 19:30 Heparin Sodium (Porcine) (Heparin Sod 5,000 Unit/0.5 Ml Vial) 5,000 units SQ Q8 MARLA Stop: 11/10/21 21:59 Last Admin: 10/19/21 06:09 Dose: 5,000 units Documented by: Midazolam HCl (Versed) 125 mg in 250 mls @ 2 mls/hr IV .Q96H PRN; Protocol PRN Reason: Agitation Stop: 11/16/21 06:02 Sodium Bicarbonate 75 meq/Potassium Acetate 10 meq/Sodium Chloride 1,080 mls @ 100 mls/hr IV .[id number] [facility] Stop: 11/17/21 08:59 Last Infusion: 10/19/21 07:06 Dose: 100 mls/hr Documented by: Insulin Aspart (Insulin Aspart Per Unit) 0 units SC Q6 MARLA Stop: 11/15/21 07:59 Last Admin: 10/19/21 06:09 Dose: Not Given Documented by: Insulin Glargine (Insulin Glargine Solostar 100 Units/Ml 3 Ml Pen) 5 units SC BID [facility] Stop: 11/10/21 20:59 Last Admin: 10/15/21 20:51 Dose: 5 units Documented by: Lansoprazole (Lansoprazole 30 Mg Soltab) 30 mg PO QAM [facility] Stop: 11/16/21 13:29 Last Admin: 10/19/21 07:50 Dose: 30 mg Documented by: Magnesium Oxide (Magnesium Oxide 400 Mg Tab) 400 mg PO HS [facility] Stop: 11/11/21 20:59 Last Admin: 10/18/21 21:17 Dose: 400 mg Documented by: Metoprolol Succinate (Metoprolol Succ 50mg Ext Rel Tab) 50 mg PO QAM [facility] Stop: 11/12/21 08:59 Last Admin: 10/16/21 09:12 Dose: Not Given Documented by: Metoprolol Succinate (Metoprolol Succ 25mg Ext Rel Tab) 25 mg PO PM [facility] Stop: 11/11/21 20:59 Last Admin: 10/15/21 19:53 Dose: 25 mg Documented by: Midazolam HCl (Midazolam Bolus From Bag) 2 mg IV Q60M PRN PRN Reason: Sedation Stop: 11/16/21 06:02 Miscellaneous (Carbohydrates For Hypoglycemia ) 15 - 30 gm PO UD PRN PRN Reason: Hypoglycemia Protocol Stop: 11/10/21 19:30 Nutritional Formula (Peptamen Intense Vhp 1.0 Christoph 1,000 Ml Bag) 1,000 ml [facility] Protocol Stop: 11/16/21 14:59 Last Admin: 10/19/21 06:12 Dose: 1,000 ml Documented by: Ondansetron HCl (Ondansetron Inj 2 Mg/Ml 2 Ml Vial) 4 mg IV Q6H PRN PRN Reason: nausea, vomiting Stop: 11/10/21 19:44 Last Admin: 10/13/21 03:10 Dose: 4 mg Documented by: Oxcarbazepine (Oxcarbazepine 150 Mg Tablet) 300 mg PO BID [facility] Stop: 11/11/21 20:59 Last Admin: 10/19/21 07:50 Dose: 300 mg Documented by: Propofol (Propofol Bolus From Bag) 20 mg IV Q5M PRN PRN Reason: Sedation Stop: 10/20/21 10:56 Umeclidinium/Vilanterol (Umeclidinium/Vilanterol 62.5/25mcg 7 Puffs/Inhaler) 1 puffs INH DAILY PRN PRN Reason: Shortness Of Breath Stop: 11/10/21 21:48 Last Admin: 10/13/21 08:10 Dose: 1 puffs Documented by: Vitamin D (Cholecalciferol 1,000 Units 25 Mcg Tab) [facility] Stop[facility] 11/12/21 08:59 Last Admin: 10/19/21 07:50 Dose: 2,000 units Documented by:
--- NOTE | 2021-10-19 11:10 | Nephrology Progress Note ---
Date of Service October 19, 2021 Assessment & Plan Admission and Anticipated Discharge Date Admission Date: October 11, 2021 Subjective [id number] Nephrology Progress Note Signed Patient:NAYELI GUERRERO Admit Date:10/11/21 MR#:[id number] Att Phy:Donnie Millard MD Acct ID:[id number] Margarita Phy:Mannie Lo MKaruna, DO Date:1955 Fam Phy: Age:65 Location:1E Sex:F Room/Bed:E110-1 cc: ~ *NOTICE TO RECEIVING GREEN PARTY/AGENCY This information is strictly Confidential and protected under [place] law. [place] law prohibits you from making any further disclosure of this information unless further disclosure is expressly permitted by the written consent of the person to whom it pertains or is authorized by law. A general authorization for the release of medical or other information is not sufficient for this purpose. Hospital accepts no responsibility if the information is made available to any other person, INCLUDING THE PATIENT. Date of Service October 18, 2021 Assessment & Plan (1) Acute kidney injury superimposed on chronic kidney disease: Plan: Further improving nonoliguric bozena on ckd 4 baseline creatinine 2. chemistries mostly acceptable CT w/o obstruction --q24 hr bmp. Made 1700 ml urine yesterday -caution w/ fluid resuscitation -no indication of dialysis (2) Disorders of fluid, electrolyte, and acid-base balance: Plan: co2 normal. other lytes also fine. Can change to 1/2 ns with 10 k.cl at 75/hr. can even stop iv fluid. labs --reviewed as above Subjective No acute interval clinical events. Remains intubated Review of Systems Review of Systems: Unobtainable due to endotracheal tube Physical Exam Constitutional: well developed, well nourished, + morbidly obese and + mechanically ventilated Eyes: EOM intact bilaterally ENMT: Ears: no external ear abnormality Nose: no external nose abnormality Mouth: + dry oral mucous membranes Neck: no nuchal rigidity Respiratory: normal respiratory effort Auscultation: + diminished lung sounds Cardiovascular: Rate/Rhythm: regular rhythm and + tachycardic Extremities: no edema Gastrointestinal (Abdomen): Inspection/Auscultation: normal bowel sounds Percussion/Palpation: abdomen soft; abdomen nontender Musculoskeletal: Extremities: strength 5/5 throughout Skin: no rashes, warm and dry Results & Data ([facility]) Vital Signs (Past 12 Hours) Vital Signs Temp Pulse Resp Pulse Ox 10/19/21 09:00 101 H 22 89 L 10/19/21 08:00 37.2 C 95 H 18 97 10/19/21 07:20 96 H 16 97 10/19/21 07:00 97 H 17 98 10/19/21 06:45 97 H 16 99 10/19/21 04:05 103 H 18 94 10/19/21 04:00 20 94 10/19/21 01:00 111 H 19 91 10/19/21 00:00 101 H 16 100
[2021-10-19 15:31] LABS: Uric Acid, Random Urine 18 mg/dL
[2021-10-19] MEDS: CLOPIDOGREL BISULFATE 75 MG TAB PO SCH (20:53)
[2021-10-19] MEDS: MAGNESIUM OXIDE 400 MG TAB PO SCH (20:53)
[2021-10-19] MEDS: ATORVASTATIN 40 MG TAB PO SCH (20:53)
[2021-10-19] MEDS ORDERED: OXcarbazepine 150 MG TABLET PO SCH (21:00)
[2021-10-20] MEDS: INSULIN ASPART PER UNIT SC SCH ×5 (00:13→21:31)
[2021-10-20] MEDS: SODIUM BICARBONATE IV SCH ×2 (04:18→20:59)
[2021-10-20] MEDS: POTASSIUM ACETATE IV SCH ×2 (04:18→20:59)
[2021-10-20] MEDS: [UNRECOGNIZED DRUG - OTHER] IV SCH ×2 (04:18→20:59)
[2021-10-20] MEDS: HEPARIN SOD 5,000 UNIT/0.5 ML VIAL SQ SCH ×3 (05:30→21:35)
[2021-10-20 05:44] LABS: Hematocrit (blood only) 25.1 % (37-47); Hemoglobin 7.5 g/dL (12.0-16.0); Mean Corpuscular Hemoglobin 29.4 pg (25-34); Mean Corpuscular Hgb Conc 29.9 g/dL (32-36); Mean Corpuscular Volume 98.4 fL (80-100); Mean Platelet Volume 9.8 fL (7.4-10.4); Platelet Count 271 K/uL (130-400); RDW Coefficient of Variation 14.3 % (11.5-14.5); RDW Standard Deviation 51.4 fL (36.4-46.3); Red Blood Count 2.55 M/uL (4.2-5.4); White Blood Count 6.51 K/uL (4.8-10.8)
[2021-10-20 06:28] LABS: BUN Creatinine Ratio 11.9 (10-20); Calcium 8.5 mg/dl (8.5-10.1); Creatinine Clr Calc Pharmacy 30.7 ml/min; Est GFR (African American) 30.1 ml/min; Magnesium 2.1 mg/dl (1.8-2.4); Potassium 3.4 mmol/L (3.5-5.1)
[2021-10-20 06:30] LABS: Phosphorus 3.3 mg/dl (2.5-4.9)
--- NOTE | 2021-10-20 07:27 | Critical Care Progress Note ---
Date of Service October 20, 2021 Assessment & Plan (1) Obstructive pyelonephritis: Plan: Impression: 66-year-old female admitted 10/11/2021 with obstructive pyelonephritis. She underwent cystoscopy with stent placement 10/12/2021. She was transferred to the ICU 10/16/2021 with mixed metabolic respiratory acidosis and encephalopathy. She failed to improve with BiPAP and was subsequently intubated 10/17/2021. She underwent bronchoscopy due to questionable right upper lobe atelectasis on 10/18/2021. She was extubated 10/19/2021. 24-hour events:Mr. Nesbitt was extubated to BiPAP yesterday. There were no acute events overnight. This morning she remains mildly encephalopathic but appears to be improving. Renal function has improved and creatinine down to 1.9 this morning. She made 700 mL of urine output overnight. At this time patient stable for downgrade from ICU. Recommendations: 1. Neurologic: Improving. Metabolic encephalopathy secondary to acid-base disturbances. Ammonia TSH and CT of the head were unremarkable. Continue Trileptal for bipolar disorder. 2. Cardiovascular: We will resume beta-velma as patient is not hypertensive. Tachycardic. Continue Plavix 3. Pulmonary: Extubated to BiPAP yesterday and BiPAP continued overnight. Would recommend BiPAP at bedtime this patient likely has underlying sleep apnea versus OHS. 4. ID: Completed 9 days antibiotics, completed 5 days of Rocephin and currently in 4 days cefepime. Did receive 1 dose of vancomycin 10/16. Blood cultures no growth to date. Urine cultures no growth to date. White blood cell count n ormal. Low-grade fever 72 hours ago. Antibiotics discontinued yesterday. Monitor 5. GI: Patient failed bedside swallow test. Currently NPO. Speech consult placed this morning for swallow eval. 6. Renal: Acute on chronic renal failure with progressive metabolic and respiratory acidosis. Improved. Appreciate nephrology assistance. Will defer electrolytes IV fluids and bicarb to them. Suspect a potential postobstructive component superimposed on chronic kidney disease at baseline. Serum creatinine at 1.9 today. Electrolytes stable. Acid-base status improved. Will need to follow-up with urology in the outpatient setting given indwelling stent. 7. Heme/Onc: Anemia, progressive this hospitalization, no signs of bleeding. Reported history of iron deficiency. Should have outpatient endoscopy performed if not up-to-date. No acute indication for transfusion currently. 8. Endocrine: Glycemic control per protocol. --Prophylaxis VTE: Heparin GI: Lansoprazole Lines: Right IJ, positive Purvis, Discussed with patient and ICU nurse at bedside as well as on multidisciplinary rounds. A total of 45 minutes was spent evaluating managing and coordinating care for this patient. PT, OT, speech consults pending Please note the above document was generated using voice recognition software. It may contain grammatical, syntax or spelling errors. (2) Acute metabolic encephalopathy: (3) Acidemia: (4) Disorders of fluid, electrolyte, and acid-base balance: (5) Acute kidney injury superimposed on chronic kidney disease: (6) CKD (chronic kidney disease), stage III: (7) DVT prophylaxis: (8) Ureteral calculus: (9) Mood disorder: (10) Sepsis: Admission and Anticipated Discharge Date Admission Date: October 11, 2021 Supervising Physician Co-Signing Physician Notes Patient seen and examined. EMR reviewed. Discussed with critical care nurse at bedside as well as on multidisciplinary rounds. Patient is extubated and doing well. She was empirically placed on CPAP last night due to suspicion for underlying sleep disordered breathing. She tolerated it reasonably well. She been hemodynamically stable. She is complaining of some abdominal discomfort. She is pending speech therapy evaluation. Patient has been ordered physical therapy and Occupational Therapy. We will progress to mobilizing her and getting her out of bed to chair as tolerated. Think we can likely discontinue her Purvis catheter. We will keep IV fluids going until she is able to tolerate p.o. but we can discontinue the bicarb and transition her to half-normal saline at 50 cc an hour. She appears appropriate to transfer out of the intensive care unit. We will sign off from a critical care standpoint and defer additional management to her primary admitting service. Feel free to contact us if we can be of additional assistance. Review of Systems Review of Systems: She continues to complain of left upper quadrant abdominal tenderness with palpation. She is currently alert to self and knows that she is in the hospital, but is confused at the time and year. She denies any shortness of breath, wheezing, cough. No headache or dizziness, sore throat, chest pain or palpitations, nausea or vomiting or diarrhea. Physical Exam Constitutional: cooperative and comfortable Eyes: PERRL, conjunctivae normal, anicteric sclerae ENMT: external ear and nose normal, oropharynx normal Neck: trachea midline, no thyromegaly Respiratory: normal respiratory effort, lungs clear to auscultation Cardiovascular: RRR, no murmur, no edema Heart Sounds: normal S1 and normal S2; no murmur Anasarca Gastrointestinal (Abdomen): Left upper quadrant abdominal tenderness with palpation. Abdomen is soft, nondistended. Bowel sounds auscultated all 4 quadrants. Musculoskeletal: no cyanosis or clubbing, extremities motor strength 5/5 Skin: no rashes, warm and dry Neurologic: PERRL, EOMI, accommodation nl, no face palsy, no dysarthria Patient alert to self and place. Confused at time/year. Psychiatric: Oriented to self. Euthymic affect Results & Data Results & Data ([facility]) Vital Signs (Past 12 Hours) Vital Signs Pulse Resp Pulse Ox 10/20/21 04:00 22 10/20/21 00:05 87 28 H 98 10/20/21 00:00 22 10/19/21 22:30 102 H 16 100 10/19/21 20:00 99 Coding Level of Care Code 41262 Subseq Hosp Care Lvl 3 Diagnoses Acute metabolic encephalopathy G93.41 Acidemia E87.2 Disorders of fluid, electrolyte, and acid-base balance E87.8 Acute kidney injury superimposed on chronic kidney disease N17.9; N18.9 CKD (chronic kidney disease), stage III N18.30 DVT prophylaxis Z29.9 Ureteral calculus N20.1 Obstructive pyelonephritis N11.1 Mood disorder F39 Sepsis A41.9
[2021-10-20] MEDS ORDERED: POTASSIUM CHLORIDE / WTR 20 MEQ/100 ML PLCT IV ONE (07:30)
[2021-10-20] MEDS: ONDANSETRON INJ 2 MG/ML 2 ML VIAL IV PRN ×2 (07:47→22:41)
--- NOTE | 2021-10-20 08:31 | XRay Report ---
XR chest 1V portable HISTORY: 66 years-old Female f/u follow-up study in a patient with shortness of breath COMPARISON: Chest radiograph 10/19/2021 TECHNIQUE: Portable AP view of the chest FINDINGS: Interval removal of the endotracheal and enteric tubes. Right IJ central venous catheter is unchanged . No pneumothorax or large pleural effusion. Interstitial coarsening mild midlung and bibasilar opaci ties. There is overall improved aeration of the lungs compared to prior study. The bones appear gross ly intact. IMPRESSION: 1. Interval removal of the endotracheal and enteric tubes. 2. Mildly improved aeration of the lungs. ACT 112: Negative or not required by law. The above report was generated using voice recognition software. It may contain grammatical, syntax o r spelling errors. Electronically signed by: Lang Calderon M.D. 10/20/2021 8:29 AM
--- NOTE | 2021-10-20 10:45 | Nephrology Progress Note ---
Date of Service October 20, 2021 Assessment & Plan Admission and Anticipated Discharge Date Admission Date: October 11, 2021 Subjective Assessment & Plan (1) Acute kidney injury superimposed on chronic kidney disease: Plan: Further improving nonoliguric bozena on ckd 4 baseline creatinine 2.Now back down to baseline. chemistries mostly acceptable CT w/o obstruction --q24 hr bmp. Making urine --getting edematous and no need of Iv fluid at this point. STOP. (2) Disorders of fluid, electrolyte, and acid-base balance: Plan: co2 normal. other lytes also fine. Stop Iv fluid. labs --reviewed as above Subjective No acute interval clinical events. Now extubated. [place] of urine. Review of Systems Review of Systems: No new symptoms Physical Exam Constitutional: well developed, well nourished, + morbidly obese and + mechanically ventilated Eyes: EOM intact bilaterally ENMT: Ears: no external ear abnormality Nose: no external nose abnormality Mouth: + dry oral mucous membranes Neck: no nuchal rigidity Respiratory: normal respiratory effort Auscultation: + diminished lung sounds Cardiovascular: Rate/Rhythm: regular rhythm and + tachycardic Extremities: no edema Gastrointestinal (Abdomen): Inspection/Auscultation: normal bowel sounds Percussion/Palpation: abdomen soft; abdomen nontender Musculoskeletal: Extremities: strength 5/5 throughout Skin: no rashes, warm and dry Results & Data ([facility]) Vital Signs (Past 12 Hours) Vital Signs Pulse Resp Pulse Ox 10/20/21 08:00 79 20 98 10/20/21 04:00 22 10/20/21 00:05 87 28 H 98 10/20/21 00:00 22
[2021-10-20] MEDS: OXcarbazepine 150 MG TABLET PO SCH ×2 (11:07→21:34)
[2021-10-20] MEDS: CHOLECALCIFEROL 1,000 UNITS 25 MCG TAB PO SCH (11:07)
[2021-10-20] MEDS: METOPROLOL SUCC 50MG EXT REL TAB PO SCH (11:12)
[2021-10-20] MEDS: FAMOTIDINE 20 MG in SYRINGE 3 ML IV SCH (11:12)
[2021-10-20] MEDS ORDERED: Nursing to Pharmacy Communication SCH (11:15)
[2021-10-20] MEDS: ACETAMINOPHEN 325 MG TAB PO PRN ×2 (17:35→21:39)
[2021-10-20] MEDS: LIDOCAINE 5% 1 PATCH TD SCH (17:59)
[2021-10-20] MEDS: ATORVASTATIN 40 MG TAB PO SCH (21:32)
[2021-10-20] MEDS: CLOPIDOGREL BISULFATE 75 MG TAB PO SCH (21:34)
[2021-10-20] MEDS: METOPROLOL SUCC 25MG EXT REL TAB PO SCH (21:35)
[2021-10-20] MEDS: MAGNESIUM OXIDE 400 MG TAB PO SCH (22:07)
[2021-10-20] MEDS ORDERED: LOPERAMIDE HCL 2 MG CAP PO STA (22:21)
[2021-10-21] MEDS: LOPERAMIDE HCL 2 MG CAP PO PRN ×2 (00:04→09:07)
[2021-10-21] MEDS ORDERED: PROMETHAZINE HCL 12.5 MG in SODIUM CHLORIDE 0.9% 50 ML IV STA (01:12)
[2021-10-21] MEDS ORDERED: oxyCODONE HCL IR 5 MG TAB (IMMEDIATE RELEASE) PO STA (01:13)
[2021-10-21] MEDS: HEPARIN SOD 5,000 UNIT/0.5 ML VIAL SQ SCH ×3 (05:52→21:02)
[2021-10-21 06:52] LABS: Hematocrit (blood only) 25.3 % (37-47); Hemoglobin 7.5 g/dL (12.0-16.0); Mean Corpuscular Hemoglobin 29.4 pg (25-34); Mean Corpuscular Hgb Conc 29.6 g/dL (32-36); Mean Corpuscular Volume 99.2 fL (80-100); Mean Platelet Volume 9.8 fL (7.4-10.4); Platelet Count 302 K/uL (130-400); RDW Coefficient of Variation 14.4 % (11.5-14.5); RDW Standard Deviation 51.8 fL (36.4-46.3); Red Blood Count 2.55 M/uL (4.2-5.4); White Blood Count 7.74 K/uL (4.8-10.8)
[2021-10-21 07:14] LABS: BUN Creatinine Ratio 11.8 (10-20); Calcium 8.6 mg/dl (8.5-10.1); Creatinine Clr Calc Pharmacy 32.3 ml/min; Est GFR (African American) 31.7 ml/min; Est GFR (Non-African American) 27.3 ml/min; Magnesium 1.8 mg/dl (1.7-2.4); Phosphorus 3.3 mg/dl (2.5-4.9); Potassium 3.3 mmol/L (3.5-5.1)
[2021-10-21] MEDS: INSULIN ASPART PER UNIT SC SCH ×4 (07:30→20:22)
[2021-10-21] MEDS: OXcarbazepine 150 MG TABLET PO SCH ×2 (09:06→20:29)
[2021-10-21] MEDS: METOPROLOL SUCC 50MG EXT REL TAB PO SCH (09:06)
[2021-10-21] MEDS: CHOLECALCIFEROL 1,000 UNITS 25 MCG TAB PO SCH (09:07)
[2021-10-21] MEDS: FAMOTIDINE 20 MG in SYRINGE 3 ML IV SCH (09:07)
[2021-10-21] MEDS: LIDOCAINE 5% 1 PATCH TD SCH (09:07)
[2021-10-21] MEDS: ACETAMINOPHEN 325 MG TAB PO PRN (09:08)
[2021-10-21] MEDS ORDERED: POTASSIUM CHLORIDE 10 MEQ TABCR PO STA (10:48)
[2021-10-21] MEDS ORDERED: BUTT PASTE (ZINC OXIDE 16%) 171 APPLN/57 GM JAR EXT PRN (19:22)
[2021-10-21] MEDS: ACETAMINOPHEN W/CODEINE #3 1 TAB PO PRN (20:28)
[2021-10-21] MEDS: CLOPIDOGREL BISULFATE 75 MG TAB PO SCH (20:28)
[2021-10-21] MEDS: ATORVASTATIN 40 MG TAB PO SCH (20:29)
[2021-10-21] MEDS: METOPROLOL SUCC 25MG EXT REL TAB PO SCH (20:29)
[2021-10-21] MEDS: MAGNESIUM OXIDE 400 MG TAB PO SCH (20:35)
--- NOTE | 2021-10-21 23:34 | Hospitalist Progress Note ---
Date of Service October 21, 2021 Assessment & Plan (1) Acute metabolic encephalopathy: (2) Obstructive pyelonephritis: (3) Ureteral calculus: (4) Complicated UTI (urinary tract infection): (5) Pain due to ureteral stent: Plan: 65 yo F with DM II, COPD, CKD III, HTN, bipolar disorder, chronic respiratory failure on home O2 (2L), laparoscopic colectomy total w/o proctectomy w/ ileostomy and ileoproctostomy in 2010 for colon Ca presented 10/11/21 w/ fever, chills, and abdominal pain. CT ABD/pelvis on admission showed 5 mm obstructing calculus just above the left vesicoureteral junction causing minimal left hydroureteronephrosis and possible evidence of pyelonephritis. S/p cystoscopy with left retrograde pyelogram aspiration and stent placement by Dr. Adam on 10/12 Patient had 2 negative urine cultures and negative blood cultures however given clinical picture concerning for infectious process, patient has remained on Rocephin Patient continued to have some stent discomfort with urination however improved with addition of Tylenol #3. Purvis removed on 10/13. Urology repeated renal ultrasound to evaluate for possible hydronephrosis on 10/15 in setting of worsening renal function - no evidence of hydro Significant clinical decline as of AM on 10/16/21 - transferred to ICU for closer monitoring due to obtunded state with respiratory acidosis with pH of 7.16, Also febrile and hypotensive Blood cultures obtained, abx broadened to cefepime and vanco (vanco discontinued after negative mrsa swab) Urology repeated CT abd/pelvis showing left nephroureteral stent with remaining pelviectasis and left cortical thinning. Bilateral nephrolithiasis Per urology, no hydro or obstruction. Bladder is decompressed. No urology intervention at this time. Repeat urine cultures Obtaining a head CT wo con due to reported fall by RN. Appeared that patient slid off of commode but unwitnessed. CT head negative Patient was started on BiPAP, however 10/17 AM, still significant respiratory acidosis, with low pH and elevated PCO2. Also patient continued to be obtunded therefore patient was intubated on 10/17/21 On October 18, patient underwent bronchoscopy October 19, patient extubated (6) Acute respiratory acidosis: Plan: Obtunded AM, 10/16/21. ABG with pH of 7.16, pCO2 of 59, bicarb 20. Also with worsening renal function History of CALI but not on CPAP - on chronic 2L NC O2 Last received narcotics on 10/15 at 1300 Bipap started at 0600 - continue. Management per cold press operator Bicarb drip initiated Despite being on BiPAP, patient obtunded on 10/17 a.m., with low pH, and elevated PCO2, therefore decision made to intubate the patient. Electrolytes improved, nephrology following (7) Acute kidney injury superimposed on chronic kidney disease: Plan: Worsening renal function in past few days from 2.1 --> 2.4 --> 3.[address] abd/pelvis 10/16 showing left nephroureteral stent with remaining pelviectasis and left cortical thinning. No hydro or obstruction. Bladder is decompressed Consulting nephrology for further recommendations Cr improved to 1.8 Continue monitor BMP Hypokalemia Potassium 3.3 today K replaced Monitor BMP (8) Chronic respiratory failure with hypoxia: Plan: Baseline - chronic 2 L of oxygen On 10/17 intubated due to altered mental status, respiratory acidosis 10/19 -patient extubated, currently on 6 L of supplemental O2 10/18 CXR 1. There is a new focal airspace opacity within the right lung apex with mild right mediastinal shift. This likely represents partial right upper lobe collapse. Consider pulmonary consultation with bronchoscopy for further evaluation to assess for mucous plugging. 2. Patchy left basilar airspace opacity has slightly improved. 10/18 underwent bronchoscopy - Patient underwent bronchoscopy due to questionable right upper lobe atelectasis. No endobronchial lesion was identified. There were mucoid secretions present in the bronchus intermedius. She is on minimal vent settings this morning. 10/19 CXR 1. Satisfactory positioning of lines and tubes. 2. Bilateral airspace opacities, as described above. Increase in right lower lung opacity which could reflect pneumonia or atelectasis. (9) Morbid obesity with BMI of 40.0-44.9, adult: Plan: BMI 44.9 Lifestyle modifications encouraged (10) Diabetes mellitus, type 2: Plan: Hgb A1c 6.5 10/12/2021 Hold oral agents and utilize Lantus and NovoLog per protocol while hospitalized (11) Anemia: Plan: Hgb 11.6 --> 9.4 --> 10.2 --> 8.8 --> 9.6 --> 8.9 --> 7.5 today No signs of bleeding, poss. dilutional in comb. of frequent blood draws FOBT ordered (12) DVT prophylaxis: Plan: SQ heparin Dispo - We will discharge when medically stable Admission and Anticipated Discharge Date Admission Date: October 11, 2021 Subjective Patient was seen and examined for follow-up of shortness of breath Lying in bed with no acute distress Patient said that her breathing is much better Not interested to go to rehab Denies any chest pain, palpitation, dizziness, and fever. Review of Systems Review of Systems: All systems reviewed & are unremarkable except as noted in Subjective Physical Exam Physical Exam: General- No acute distress Head- atraumatic Eyes- PERRL, EOMI, ENT- oropharynx clear Neck- supple, no JVD Lungs- +coarse BS Heart- regular rhythm; no murmur Abdomen- normal bowel sounds, soft, nontender Extremities- no calf tenderness, +edema Neuro- alert, oriented x 3; PERRL, EOMI; no facial palsy; no dysarthria Skin- warm & dry Results & Data Results & Data ([facility]) Vital Signs (Past 12 Hours) Vital Signs Temp Pulse Pulse Resp BP BP Pulse Ox 10/21/21 23:00 36.7 C 79 16 122/62 99 10/21/21 19:00 36.7 C 78 18 128/73 99 10/21/21 15:28 37.1 C 81 18 153/81 H 98 10/21/21 15:12 83 10/21/21 12:00 20 96
[2021-10-22] MEDS: HEPARIN SOD 5,000 UNIT/0.5 ML VIAL SQ SCH ×3 (05:53→23:03)
[2021-10-22] MEDS: ACETAMINOPHEN 325 MG TAB PO PRN (06:02)
[2021-10-22 07:12] LABS: BUN Creatinine Ratio 11.7 (10-20); Calcium 8.6 mg/dl (8.5-10.1); Creatinine Clr Calc Pharmacy 34.6 ml/min; Est GFR (Non-African American) 30.2 ml/min; Potassium 3.2 mmol/L (3.5-5.1)
[2021-10-22] MEDS: INSULIN ASPART PER UNIT SC SCH ×4 (08:00→20:29)
[2021-10-22] MEDS: OXcarbazepine 150 MG TABLET PO SCH ×2 (08:16→20:25)
[2021-10-22] MEDS: METOPROLOL SUCC 50MG EXT REL TAB PO SCH (08:16)
[2021-10-22] MEDS: CHOLECALCIFEROL 1,000 UNITS 25 MCG TAB PO SCH (08:16)
[2021-10-22] MEDS: UMECLIDINIUM/VILANTEROL 62.5/25MCG 7 PUFFS/INHALER INH PRN (08:17)
[2021-10-22] MEDS: FLUTICASONE FUROATE 100MCG 14 PUFFS/INHALER INH PRN (08:17)
[2021-10-22] MEDS: LIDOCAINE 5% 1 PATCH TD SCH (08:17)
[2021-10-22] MEDS: ACETAMINOPHEN W/CODEINE #3 1 TAB PO PRN ×2 (08:22→20:13)
[2021-10-22] MEDS: LOPERAMIDE HCL 2 MG CAP PO PRN (08:22)
[2021-10-22] MEDS: FAMOTIDINE 20 MG in SYRINGE 3 ML IV SCH (08:23)
[2021-10-22 08:49] LABS: Hematocrit (blood only) 26.2 % (37-47); Hemoglobin 7.6 g/dL (12.0-16.0); Mean Corpuscular Hemoglobin 29.5 pg (25-34); Mean Corpuscular Volume 101.6 fL (80-100); Platelet Count 308 K/uL (130-400); RDW Coefficient of Variation 14.4 % (11.5-14.5); RDW Standard Deviation 52.5 fL (36.4-46.3); Red Blood Count 2.58 M/uL (4.2-5.4); White Blood Count 7.93 K/uL (4.8-10.8)
--- NOTE | 2021-10-22 09:48 | Nephrology Progress Note ---
Date of Service October 22, 2021 Assessment & Plan Admission and Anticipated Discharge Date Admission Date: October 11, 2021 Subjective Assessment & Plan (1) Acute kidney injury superimposed on chronic kidney disease: Plan: Further improving nonoliguric bozena on ckd 4 baseline creatinine 2 in the setting of Pyelonephritis/Sepsis/renal stone S/p ureteric stent.Now back down to baseline. chemistries mostly acceptable CT w/o obstruction --q24 hr bmp. Making urine but does have lot of edema Rec: 1. hernandez trial and remove 2 Consider removing Central line 3 lasix 40 mg iv x 1 with k.cl 80 meq today (2) Disorders of fluid, electrolyte, and acid-base balance: Plan: co2 normal now and k slightly low. labs --reviewed as above Subjective No acute interval clinical events. Now out of ICU and Lot of urine. Review of Systems Review of Systems: No new symptoms Physical Exam Constitutional: well developed, well nourished, + morbidly obese Eyes: EOM intact bilaterally ENMT: Ears: no external ear abnormality Nose: no external nose abnormality Mouth: + dry oral mucous membranes Neck: no nuchal rigidity Respiratory: normal respiratory effort Auscultation: + diminished lung sounds Cardiovascular: Rate/Rhythm: regular rhythm and + tachycardic Extremities: no edema Gastrointestinal (Abdomen): Inspection/Auscultation: normal bowel sounds Percussion/Palpation: abdomen soft; abdomen nontender Musculoskeletal: Extremities: strength 5/5 throughout Skin: no rashes, warm and dry Results & Data ([facility]) Vital Signs (Past 12 Hours) Vital Signs Temp Pulse Pulse Resp BP Pulse Ox 10/22/21 07:31 36.8 C 78 22 119/77 98 10/22/21 07:27 73 10/22/21 04:00 18 10/22/21 03:32 36.8 C 81 16 109/68 95 10/21/21 23:51 20 10/21/21 23:00 36.7 C 79 16 122/62 99 10/21/21 22:20 77
[2021-10-22] MEDS: POTASSIUM CHLORIDE CRTAB 20 MEQ TABCR PO SCH ×2 (10:39→20:28)
[2021-10-22] MEDS: FUROSEMIDE 40 MG/4 ML VIAL IV SCH (10:39)
[2021-10-22] MEDS: MAGNESIUM OXIDE 400 MG TAB PO SCH (20:03)
[2021-10-22] MEDS: ONDANSETRON INJ 2 MG/ML 2 ML VIAL IV PRN (20:14)
[2021-10-22] MEDS: METOPROLOL SUCC 25MG EXT REL TAB PO SCH (20:26)
[2021-10-22] MEDS: ATORVASTATIN 40 MG TAB PO SCH (20:26)
[2021-10-22] MEDS: CLOPIDOGREL BISULFATE 75 MG TAB PO SCH (20:27)
--- NOTE | 2021-10-22 23:11 | Hospitalist Progress Note ---
Date of Service October 22, 2021 Assessment & Plan (1) Acute metabolic encephalopathy: (2) Obstructive pyelonephritis: (3) Ureteral calculus: (4) Complicated UTI (urinary tract infection): (5) Pain due to ureteral stent: Plan: 65 yo F with DM II, COPD, CKD III, HTN, bipolar disorder, chronic respiratory failure on home O2 (2L), laparoscopic colectomy total w/o proctectomy w/ ileostomy and ileoproctostomy in 2010 for colon Ca presented 10/11/21 w/ fever, chills, and abdominal pain. CT ABD/pelvis on admission showed 5 mm obstructing calculus just above the left vesicoureteral junction causing minimal left hydroureteronephrosis and possible evidence of pyelonephritis. S/p cystoscopy with left retrograde pyelogram aspiration and stent placement by Dr. Adam on 10/12 Patient had 2 negative urine cultures and negative blood cultures however given clinical picture concerning for infectious process, patient has remained on Rocephin Patient continued to have some stent discomfort with urination however improved with addition of Tylenol #3. Hernandez removed on 10/13. Urology repeated renal ultrasound to evaluate for possible hydronephrosis on 10/15 in setting of worsening renal function - no evidence of hydro Significant clinical decline as of AM on 10/16/21 - transferred to ICU for closer monitoring due to obtunded state with respiratory acidosis with pH of 7.16, Also febrile and hypotensive Blood cultures obtained, abx broadened to cefepime and vanco (vanco discontinued after negative mrsa swab) Urology repeated CT abd/pelvis showing left nephroureteral stent with remaining pelviectasis and left cortical thinning. Bilateral nephrolithiasis Per urology, no hydro or obstruction. Bladder is decompressed. No urology intervention at this time. Repeat urine cultures Obtaining a head CT wo con due to reported fall by RN. Appeared that patient slid off of commode but unwitnessed. CT head negative Patient was started on BiPAP, however 10/17 AM, still significant respiratory acidosis, with low pH and elevated PCO2. Also patient continued to be obtunded therefore patient was intubated on 10/17/21 On October 18, patient underwent bronchoscopy and October 19, patient extubated I reached out to urology about voiding trial. If able to void, will d/c the hernandez (6) Acute respiratory acidosis: Plan: Obtunded AM, 10/16/21. ABG with pH of 7.16, pCO2 of 59, bicarb 20. Also with worsening renal function History of CALI but not on CPAP - on chronic 2L NC O2 Last received narcotics on 10/15 at 1300 Bipap started at 0600 - continue. Management per yard supervisor Bicarb drip initiated Despite being on BiPAP, patient obtunded on 10/17 a.m., with low pH, and elevated PCO2, therefore decision made to intubate the patient. Lasix 40mg x1 given today She has been diuresis well (7) Acute kidney injury superimposed on chronic kidney disease: Plan: Worsening renal function in past few days from 2.1 --> 2.4 --> 3.[address] abd/pelvis 10/16 showing left nephroureteral stent with remaining pelviectasis and left cortical thinning. No hydro or obstruction. Bladder is de compressed Consulting nephrology for further recommendations Cr improved to 1.7 Continue monitor BMP Hypokalemia Potassium 3.2 today K replaced Monitor BMP (8) Chronic respiratory failure with hypoxia: Plan: Baseline - chronic 2 L of oxygen On 10/17 intubated due to altered mental status, respiratory acidosis 10/19 -patient extubated, currently on 6 L of supplemental O2 10/18 CXR 1. There is a new focal airspace opacity within the right lung apex with mild right mediastinal shift. This likely represents partial right upper lobe collapse. Consider pulmonary consultation with bronchoscopy for further evaluation to assess for mucous plugging. 2. Patchy left basilar airspace opacity has slightly improved. 10/18 underwent bronchoscopy - Patient underwent bronchoscopy due to questionable right upper lobe atelectasis. No endobronchial lesion was identified. There were mucoid secretions present in the bronchus intermedius. She is on minimal vent settings this morning. 10/19 CXR 1. Satisfactory positioning of lines and tubes. 2. Bilateral airspace opacities, as described above. Increase in right lower lung opacity which could reflect pneumonia or atelectasis. (9) Morbid obesity with BMI of 40.0-44.9, adult: Plan: BMI 44.9 Lifestyle modifications encouraged (10) Diabetes mellitus, type 2: Plan: Hgb A1c 6.5 10/12/2021 Hold oral agents and utilize Lantus and NovoLog per protocol while hospitalized (11) Anemia: Plan: Hgb 11.6 --> 9.4 --> 10.2 --> 8.8 --> 9.6 --> 8.9 --> 7.6 today No signs of bleeding, poss. dilutional in comb. of frequent blood draws Continue monitor CBC (12) DVT prophylaxis: Plan: SQ heparin Dispo - We will discharge when medically stable Admission and Anticipated Discharge Date Admission Date: October 11, 2021 Subjective Pt was seen and examined for follow up of SOB Lying in bed with no acute distress Pt said that she feels much better today She was able to walk to the bathroom today with therapy She said that she is getting stronger Denies any chest pain, palpitation, dizziness and SOB Review of Systems Review of Systems: All systems reviewed & are unremarkable except as noted in Subjective Physical Exam Physical Exam: General- No acute distress Head- atraumatic Eyes- PERRL, EOMI, ENT- oropharynx clear Neck- supple, no JVD Lungs- +coarse BS Heart- regular rhythm; no murmur Abdomen- normal bowel sounds, soft, nontender Extremities- no calf tenderness, +edema Neuro- alert, oriented x 3; PERRL, EOMI; no facial palsy; no dysarthria Skin- warm & dry Results & Data Results & Data ([facility]) Vital Signs (Past 12 Hours) Vital Signs Temp Pulse Pulse Resp BP BP Pulse Ox 10/22/21 19:04 36.7 C 93 H 20 131/84 98 10/22/21 15:52 37.0 C 87 20 132/76 96 10/22/21 15:07 82 10/22/21 11:20 36.7 C 80 20 144/83 H 98
[2021-10-23] MEDS: ACETAMINOPHEN W/CODEINE #3 1 TAB PO PRN ×3 (03:46→20:36)
[2021-10-23] MEDS: HEPARIN SOD 5,000 UNIT/0.5 ML VIAL SQ SCH ×3 (05:01→22:38)
[2021-10-23 06:27] LABS: Hematocrit (blood only) 28.2 % (37-47); Hemoglobin 8.2 g/dL (12.0-16.0); Mean Corpuscular Hemoglobin 29.7 pg (25-34); Mean Corpuscular Hgb Conc 29.1 g/dL (32-36); Mean Corpuscular Volume 102.2 fL (80-100); Mean Platelet Volume 9.8 fL (7.4-10.4); Platelet Count 288 K/uL (130-400); RDW Coefficient of Variation 14.3 % (11.5-14.5); RDW Standard Deviation 52.9 fL (36.4-46.3); Red Blood Count 2.76 M/uL (4.2-5.4); White Blood Count 8.62 K/uL (4.8-10.8)
[2021-10-23 06:49] LABS: BUN Creatinine Ratio 12.4 (10-20); Calcium 8.4 mg/dl (8.5-10.1); Creatinine Clr Calc Pharmacy 34.8 ml/min; Est GFR (African American) 35.3 ml/min; Est GFR (Non-African American) 30.5 ml/min; Potassium 3.3 mmol/L (3.5-5.1)
[2021-10-23] MEDS: CHOLECALCIFEROL 1,000 UNITS 25 MCG TAB PO SCH (07:57)
[2021-10-23] MEDS: OXcarbazepine 150 MG TABLET PO SCH ×2 (07:57→20:30)
[2021-10-23] MEDS: LIDOCAINE 5% 1 PATCH TD SCH (07:57)
[2021-10-23] MEDS: METOPROLOL SUCC 50MG EXT REL TAB PO SCH (07:58)
[2021-10-23] MEDS: POTASSIUM CHLORIDE CRTAB 20 MEQ TABCR PO SCH ×2 (07:58→20:30)
[2021-10-23] MEDS: FUROSEMIDE 40 MG/4 ML VIAL IV SCH (07:58)
[2021-10-23] MEDS: INSULIN ASPART PER UNIT SC SCH ×4 (07:59→20:21)
[2021-10-23] MEDS: FAMOTIDINE 20 MG in SYRINGE 3 ML IV SCH (08:08)
[2021-10-23] MEDS: ONDANSETRON INJ 2 MG/ML 2 ML VIAL IV PRN ×2 (08:09→20:36)
--- NOTE | 2021-10-23 10:55 | Nephrology Progress Note ---
Date of Service October 23, 2021 Assessment & Plan (1) Acute kidney injury superimposed on chronic kidney disease: Plan: Further improving stage one nonoliguric bozena on ckd 4 baseline creatinine 2. acidemia as below; chemistries mostly acceptable though with resuscitation hyperchloremia and metabolic acidosis have emerged. CT w/o obstruction.Creatinine stable at 1.7 -We will stop Lasix -Daily BMP -no indication for discussing dialysis (2) Disorders of fluid, electrolyte, and acid-base balance: Plan: Patient has hypokalemia with potassium of 3.3. She will continue potassium chloride 20 mill equivalents twice daily. Will likely stop tomorrow Admission and Anticipated Discharge Date Admission Date: October 11, 2021 Subjective Seen in follow-up for acute kidney injury. She feels better today. No leg swelling. She is on oxygen 2 L nasal collar which is chronic even at home. No vomiting or diarrhea. She was net -4 L yesterday. Review of Systems Review of Systems: All other systems were reviewed and negative except as noted in HPI Physical Exam Physical Exam: General exam: Appears comfortable, no acute distress. on oxygen NC HEENT: Pupils are equal and reactive to light Neck: No JVD, neck is supple trachea is midline Respiratory system: Clear breath sounds bilaterally. Gastrointestinal: Abdomen is soft, non distended, non tender, bowel sounds are present CVS: Regular rate and rhythm. No murmurs, rubs or gallops Musculoskeletal: No joint or muscle tenderness Extremities: Non tender, no edema, peripheral pulses are present Neuro: Oriented, no tremors, no focal neurological deficits Skin: No rashes Results & Data ([facility]) Vital Signs (Past 12 Hours) Vital Signs Temp Pulse Pulse Resp BP Pulse Ox 10/23/21 08:12 36.6 C 77 19 113/71 97 10/23/21 08:00 112 H 95 10/23/21 04:36 36.8 C 85 18 128/74 95 10/23/21 04:00 18 95 10/22/21 23:49 86 10/22/21 23:10 37.5 C 108 H 20 163/81 H 91 Laboratory Results 10/23/21 05:38 10/23/21 05:38 WBC 8.62 RBC 2.76 L MCV 102.2 H MCH 29.7 MCHC 29.1 L RDW Std Deviation 52.9 H RDW Coeff of Teresa 14.3 Plt Count 288 MPV 9.8
[2021-10-23] MEDS: MAGNESIUM OXIDE 400 MG TAB PO SCH (20:29)
[2021-10-23] MEDS: METOPROLOL SUCC 25MG EXT REL TAB PO SCH (20:29)
[2021-10-23] MEDS: CLOPIDOGREL BISULFATE 75 MG TAB PO SCH (20:29)
[2021-10-23] MEDS: ATORVASTATIN 40 MG TAB PO SCH (20:30)
--- NOTE | 2021-10-23 21:43 | Hospitalist Progress Note ---
Date of Service October 23, 2021 Assessment & Plan (1) Acute metabolic encephalopathy: (2) Obstructive pyelonephritis: (3) Ureteral calculus: (4) Complicated UTI (urinary tract infection): (5) Pain due to ureteral stent: Plan: 65 yo F with DM II, COPD, CKD III, HTN, bipolar disorder, chronic respiratory failure on home O2 (2L), laparoscopic colectomy total w/o proctectomy w/ ileostomy and ileoproctostomy in 2010 for colon Ca presented 10/11/21 w/ fever, chills, and abdominal pain. CT ABD/pelvis on admission showed 5 mm obstructing calculus just above the left vesicoureteral junction causing minimal left hydroureteronephrosis and possible evidence of pyelonephritis. S/p cystoscopy with left retrograde pyelogram aspiration and stent placement by Dr. Adam on 10/12 Patient had 2 negative urine cultures and negative blood cultures however given clinical picture concerning for infectious process, patient has remained on Rocephin Patient continued to have some stent discomfort with urination however improved with addition of Tylenol #3. Hernandez removed on 10/13. Urology repeated renal ultrasound to evaluate for possible hydronephrosis on 10/15 in setting of worsening renal function - no evidence of hydro Significant clinical decline as of AM on 10/16/21 - transferred to ICU for closer monitoring due to obtunded state with respiratory acidosis with pH of 7.16, Also febrile and hypotensive Blood cultures obtained, abx broadened to cefepime and vanco (vanco discontinued after negative mrsa swab) Urology repeated CT abd/pelvis showing left nephroureteral stent with remaining pelviectasis and left cortical thinning. Bilateral nephrolithiasis Per urology, no hydro or obstruction. Bladder is decompressed. No urology intervention at this time. Repeat urine cultures Obtaining a head CT wo con due to reported fall by RN. Appeared that patient slid off of commode but unwitnessed. CT head negative Patient was started on BiPAP, however 10/17 AM, still significant respiratory acidosis, with low pH and elevated PCO2. Also patient continued to be obtunded therefore patient was intubated on 10/17/21 On October 18, patient underwent bronchoscopy and October 19, patient extubated I reached out to urology about voiding trial. If able to void, will d/c the hernandez Hernandez catheter removed yesterday (6) Acute respiratory acidosis: (7) Chronic respiratory failure with hypoxia: Plan: On 10/[address] [facility] Ventilation due to altered mental status, respiratory acidosis 10/19 -patient extubated, currently on 6 L of supplemental O2 CXR showed new focal airspace opacity within the right lung apex with mild right mediastinal shift. Patchy left basilar airspace opacity has slightly improved. S/P bronchoscopy on no endobronchial lesion was identified. There were mucoid secretions present in the bronchus intermedius. Repeat CXR on 10/20 showed mildly improved aeration of the lungs. Diuresing very well yesterday after giving 40 mg IV Lasix x1 Oxygen supplement has been improved, currently on 2 L nasal cannula which is baseline Clinically improved significantly (8) Acute kidney injury superimposed on chronic kidney disease: Plan: Worsening renal function in past few days from 2.1 --> 2.4 --> 3.[address] abd/pelvis 10/16 showing left nephroureteral stent with remaining pelviectasis and left cortical thinning. No hydro or obstruction. Nephrology on board Cr improved to 1.7 Continue monitor BMP Hypokalemia Potassium 3.3 today Continue potassium supplement Monitor BMP (9) Morbid obesity with BMI of 40.0-44.9, adult: Plan: BMI 44.9 Lifestyle modifications encouraged (10) Diabetes mellitus, type 2: Plan: Hgb A1c 6.5 10/12/2021 Hold oral agents and utilize Lantus and NovoLog per protocol while hospitalized (11) Anemia: Plan: Hgb 11.6 --> 9.4 --> 10.2 --> 8.8 --> 9.6 --> 8.9 --> 7.6-->8.2 today No signs of bleeding, poss. dilutional in comb. of frequent blood draws Continue monitor CBC (12) DVT prophylaxis: Plan: SQ heparin Dispo - We will discharge when medically stable Admission and Anticipated Discharge Date Admission Date: October 11, 2021 Subjective Patient was seen and examined for follow up of SOB Lying in bed with no acute distress patient continues to feel better everyday She said that she is getting better and her energy improves Denies any chest pain, palpitation, dizziness and SOB Review of Systems Review of Systems: All systems reviewed & are unremarkable except as noted in Subjective Physical Exam Physical Exam: General- No acute distress Head- atraumatic Eyes- PERRL, EOMI, ENT- oropharynx clear Neck- supple, no JVD Lungs- +coarse BS Heart- regular rhythm; no murmur Abdomen- normal bowel sounds, soft, nontender Extremities- no calf tenderness, +edema Neuro- alert, oriented x 3; PERRL, EOMI; no facial palsy; no dysarthria Skin- warm & dry Results & Data Results & Data ([facility]) Vital Signs (Past 12 Hours) Vital Signs Temp Pulse Pulse Resp BP Pulse Ox 10/23/21 18:42 37.0 C 88 14 101/67 97 10/23/21 16:00 75 10/23/21 15:01 36.8 C 81 19 125/80 97 10/23/21 12:16 36.9 C 96 H 22 159/92 H 92
[2021-10-24] MEDS: HEPARIN SOD 5,000 UNIT/0.5 ML VIAL SQ SCH (06:30)
[2021-10-24] MEDS: CHOLECALCIFEROL 1,000 UNITS 25 MCG TAB PO SCH (08:18)
[2021-10-24] MEDS: OXcarbazepine 150 MG TABLET PO SCH (08:18)
[2021-10-24] MEDS: LIDOCAINE 5% 1 PATCH TD SCH (08:18)
[2021-10-24] MEDS: POTASSIUM CHLORIDE CRTAB 20 MEQ TABCR PO SCH (08:19)
[2021-10-24] MEDS: METOPROLOL SUCC 50MG EXT REL TAB PO SCH (08:19)
[2021-10-24] MEDS: INSULIN ASPART PER UNIT SC SCH ×2 (08:20→12:05)
[2021-10-24] MEDS: ACETAMINOPHEN W/CODEINE #3 1 TAB PO PRN (08:25)
[2021-10-24] MEDS: FAMOTIDINE 20 MG in SYRINGE 3 ML IV SCH (08:26)
[2021-10-24] MEDS: ONDANSETRON INJ 2 MG/ML 2 ML VIAL IV PRN (08:34)
[2021-10-24 10:05] LABS: BUN Creatinine Ratio 13.8 (10-20); Creatinine Clr Calc Pharmacy 35.7 ml/min; Est GFR (Non-African American) 32.8 ml/min; Potassium 3.7 mmol/L (3.5-5.1)
[2021-10-24 10:26] LABS: Hematocrit (blood only) 29.3 % (37-47); Hemoglobin 8.3 g/dL (12.0-16.0); Mean Corpuscular Hemoglobin 29.2 pg (25-34); Mean Corpuscular Hgb Conc 28.3 g/dL (32-36); Mean Corpuscular Volume 103.2 fL (80-100); Mean Platelet Volume 9.7 fL (7.4-10.4); Platelet Count 268 K/uL (130-400); RDW Coefficient of Variation 14.4 % (11.5-14.5); RDW Standard Deviation 54.1 fL (36.4-46.3); Red Blood Count 2.84 M/uL (4.2-5.4)
--- NOTE | 2021-10-24 10:29 | Nephrology Progress Note ---
Date of Service October 24, 2021 Assessment & Plan (1) Acute kidney injury superimposed on chronic kidney disease: Plan: Further improving stage one nonoliguric perri on ckd 4 baseline creatinine 2. acidemia as below; chemistries mostly acceptable though with resuscitation hyperchloremia and metabolic acidosis have emerged. CT w/o obstruction.Creatinine stable at 1.6 -Daily BMP -no indication for discussing dialysis -From renal standpoint patient can be discharged on home renal meds and renal follow-up as an outpatient (2) Disorders of fluid, electrolyte, and acid-base balance: Plan: Potassium is normal today. Will stop Potassium chloride supplements. We will continue to monitor electrol chidies Admission and Anticipated Discharge Date Admission Date: October 11, 2021 Subjective Seen for PERRI. She feels better denies any shortness of breath. She is on chronic oxygen even at home. No leg swelling. She is making urine. Review of Systems Review of Systems: All other systems were reviewed and negative except as noted in HPI Physical Exam Physical Exam: General exam: Appears comfortable, no acute distress. on oxygen [place] HEENT: Pupils are equal and reactive to light Neck: No JVD, neck is supple trachea is midline Respiratory system: Clear breath sounds bilaterally. Gastrointestinal: Abdomen is soft, non distended, non tender, bowel sounds are present CVS: Regular rate and rhythm. No murmurs, rubs or gallops Musculoskeletal: No joint or muscle tenderness Extremities: Non tender, no edema, peripheral pulses are present Neuro: Oriented, no tremors, no focal neurological deficits Skin: No rashes Results & Data ([facility]) Vital Signs (Past 12 Hours) Vital Signs Temp Pulse Pulse Resp BP Pulse Ox 10/24/21 07:07 36.9 C 73 18 111/73 98 10/24/21 03:52 37.1 C 99 H 24 154/88 H 96 10/23/21 22:51 36.7 C 89 18 116/69 94 Laboratory Results 10/24/21 09:13 10/24/21 09:13 WBC 7.70 RBC 2.84 L MCV 103.2 H MCH 29.2 MCHC 28.3 L RDW Std Deviation 54.1 H RDW Coeff of Teresa 14.4 Plt Count 268 MPV 9.7
[2021-10-30 10:41] LABS: Legionella Culture Source RBL
--- NOTE | 2021-11-04 00:20 | Discharge Summary ---
Date of Service October 24, 2021 Admission HPI Per Admitting Provider 65yo F with a PMH of DM II, COPD, CKD III, HTN, bipolar disorder, chronic respiratory failure on home O2 (2L), laparoscopic colectomy total w/o proctectomy w/ ileostomy and ileoproctostomy in 2010 for colon Ca presented 10/11/21 w/ fever, chills, and abdominal pain. Last confinement in April 2021 for sepsis likely secondary to then recent urologic intervention [left ureteral stent]. Per patient, she has been feeling sick and unable to eat and drink, nausea and vomiting since last 3 days. She has not been able to take her medication since last 3 days. Other associated symptoms or dizziness, ringing in years x left, fever of 103.2F 3 days prior and more than 101F on other 2 occasions leading up to admissions. Patient denies any chest pain or palpitation. Patient does report belly pain all over and back pain. Patient has recently [4 to 5 months ago] undergone laser destruction of the left ureteral stone and left ureteral stent placement which is removed around 3 months ago per patient. ROS negative unless mentioned otherwise. Patient does not smoke, drink alcohol, use illegal drugs. Family history positive for breast cancer in mother and colon cancer in father. Sister had 3 [place]. Full code, if deemed vegetative withdraw care per patient. No POA per patient. Admission Exam Per Admitting Provider GENERAL: Alert and oriented x3. NAD, on RA. Shaking [patient reports tremors of all extremities at baseline, difficult to distinguish it from shaking from fever] HEENT: No pallor, no icterus. Pupils equal, round and reactive to light. Oral mucosa moist. NECK: No JVD, no neck masses. HEART: S1 and S2 heard. Regular rate and rhythm. No murmur, no gallop. RESPIRATORY SYSTEM: Normal AP diameter. No accessory muscle use. No wheezing, no crackles. ABDOMEN: Soft, bowel sounds present, diffusely tender more so on the right flank with rebound tenderness positive on the right side. Bilateral CVA angle tenderness CENTRAL NERVOUS SYSTEM: No facial droop. Speech is clear. Obeys simple commands. Moves extremities. EXTREMITIES: Trace BLE edema, no erythema seen. Principal Diagnosis (1) Acute metabolic encephalopathy: (2) Obstructive pyelonephritis: (3) Ureteral calculus: (4) Complicated UTI (urinary tract infection): (5) Pain due to ureteral stent (6) Acute respiratory acidosis: (7) Chronic respiratory failure with hypoxia: (8) Acute kidney injury superimposed on chronic kidney disease: (9) Hypokalemia (10) Morbid obesity with BMI of 40.0-44.9, adult: (11) Diabetes mellitus, type 2: (12) Anemia: Discharge Exam General- No acute distress Head- atraumatic Eyes- PERRL, EOMI, ENT- oropharynx clear Neck- supple, no JVD Lungs- +coarse BS Heart- regular rhythm; no murmur Abdomen- normal bowel sounds, soft, nontender Extremities- no calf tenderness, +edema Neuro- alert, oriented x 3; PERRL, EOMI; no facial palsy; no dysarthria Skin- warm & dry Discharge Data Allergies Allergy/AdvReac Type Severity Reaction Status Date / Time salicylates Allergy Severe SHORTNESS Verified 10/29/21 16:28 OF BREATH Iodinated Contrast Media Allergy Intermediate EYES Verified 10/29/21 16:28 SWELLING/Hives amoxicillin [From Augmentin] Allergy Mild Rash Verified 10/29/21 16:28 aspirin Allergy Mild FACIAL Verified 10/29/21 16:28 SWELLING clavulanic acid Allergy Mild Rash Verified 10/29/21 16:28 [From Augmentin] hydromorphone Allergy Mild RASH/ITCHIN Verified 10/29/21 16:28 G fentanyl Allergy itching/felt Verified 10/29/21 16:28 like throat closing meperidine AdvReac Intermediate ITCH Verified 10/29/21 16:28 morphine AdvReac Intermediate ITCH Verified 10/29/21 16:28 tramadol AdvReac Mild itch Verified 10/29/21 16:28 Consultations 10/11/21 17:12 Consult Urology Stat ED Decision to Admit Stat 10/16/21 09:35 Consult Battery Plate Assembler Stat 10/16/21 09:49 Consult Nephrology Routine Procedures Performed Operation Date: 10/12/21 13:00 Actual Procedures p Cystoscopy with left retrograde pyelogram, aspiration, and stent placement. (Left) - Rajan Adam, Ordered Studies 10/11/21 14:24 CT abd pelvis wo con Stat 10/12/21 FL retrograde includes kub Routine 10/15/21 10:30 US renal/blad retro comp Urgent 10/16/21 07:35 CT abd pelvis wo con Stat 10/16/21 16:17 CT head/brain wo con Stat 10/17/21 09:46 US point of care ultrasound Urgent [place], [place] [phone] CT Scan Report Patient:NAYELI GUERRERO Admit Date:10/11/21 MR#:[id number] Address1:[address] [facility] Acct ID:[id number] Address2:[address] Date:1955 [facility] Zip:[place] [address] Age:65 Location:ED Sex:F Room/Bed: Att Phy: Diagnosis:ABD PAIN Margarita Phy:Lo Chand DO Service Date:10/11/21 Fam Phy: Interpreting Phy:Caesar Yoon MDAdmit Phy: Ordering Phy:Joanne Vizcarra PA-C cc: ~ CT SCAN OF THE ABDOMEN AND PELVIS WITHOUT IV CONTRAST CLINICAL HISTORY: Right lower quadrant abdominal pain. COMPARISON STUDY: Abdominal CT dated 05/05/2021. TECHNIQUE: CT scan of the abdomen and pelvis is performed from the lung bases to the proximal femora. Images are reviewed in the axial, sagittal, and coronal planes. IV contrast was not administered for this examination. A dose lowering technique was utilized adhering to the principles of ALARA. CT DOSE: 817.21 mGy.cm FINDINGS: Lung bases: The heart is normal in size and without pericardial effusion. Costophrenic granulomas are present at the lung bases. The lung bases are otherwise clear. There is a moderate hiatal hernia. Liver: The unenhanced liver is top normal in size and demonstrates diffusely diminished attenuation consistent with hepatic steatosis. There is no intrahepatic biliary ductal dilatation. Gallbladder: Surgically absent noting clips in the gallbladder fossa. Spleen: Normal in size and attenuation. Pancreas: The unenhanced pancreas is moderately atrophic and grossly unremarkable. Adrenal glands: Unremarkable. Kidneys: There is asymmetric cortical atrophy of the left kidney as compared to the right. Foci of cortical scarring are noted throughout the left kidney. There is a 5 mm obstructing calculus in the distal left ureter just above the vesicoureteral junction seen on image #342. There is mild left hydronephrosis. There is urothelial thickening within the left renal pelvis with surrounding inflammation. There are least 4 additional nonobstructing left renal calculi which measure up to 8 mm. There is a 4 mm nonobstructing right renal calculus. There is fullness of the right renal collecting system without hydronephrosis. Bilateral renal cysts measure up to 6.5 cm. Abdominal vasculature: The abdominal aorta is normal in course and caliber noting mild to moderate atherosclerotic calcification. Bowel: There is postoperative change from subtotal colectomy with ileosigmoid anastomosis. No bowel obstruction is seen. A supraumbilical hernia on image #173 and a ventral hernia in the pelvis on image #330 contain nonobstructed small bowel loops. Peritoneum: There is no intraperitoneal free air or abdominal ascites. Lymphadenopathy: None. Pelvic viscera: The bladder is decompressed. There is pericholecystic inflammation. The uterus is surgically absent. No adnexal lesion is seen. Skeletal structures: The skeletal structures are osteopenic. Mild lumbosacral spondylosis is observed. No lytic or blastic lesions are seen. There are healed left-sided rib fractures. IMPRESSION: 1. There is a 5 mm obstructing calculus just above the left vesicoureteral junction. This causes minimal left hydroureteronephrosis. 2. Additional bilateral nonobstructing renal calculi as above. 3. The bladder is decompressed and there is significant pericystic inflammation. There is also urothelial thickening with surrounding inflammation involving the left renal pelvis. Correlate with clinical findings and urinalysis for evidence of cystitis/ascending infection. 4. Hepatic steatosis. 5. Ventral abdominal hernias contain nonobstructed segments of small bowel. 6. Moderate hiatal hernia. 7. Additional findings as above. ACT 112: Negative or not required by law. Electronically signed by: Caesar Yoon M.D. 10/11/2021 4:45 PM Dictated:10/11/21 1633 Transcribed: 10/11/21 1633 SINGLE VIEW CHEST CLINICAL HISTORY: Sepsis. FINDINGS: An AP, portable, upright chest radiograph is compared to study dated 09/14/2021. The examination is degraded by portable technique and apical lordotic positioning. The cardiomediastinal silhouette is unremarkable. Chronic interstitial thickening is similar to previous. Mild atelectasis is noted at the lung bases. The lungs and pleural spaces are otherwise clear. No pneumothorax is seen. The skeletal structures are osteopenic. The bony thorax is grossly intact. IMPRESSION: No active disease in the chest. ACT 112: Negative or not required by law. Electronically signed by: Caesar Yoon M.D. 10/11/2021 5:58 PM Dictated:10/11/211756 Transcribed: 10/11/211756 FL retrograde includes kub CLINICAL HISTORY: CYSTO TECHNIQUE: 3 views were obtained with the C-arm in the OR with the above procedure. Total fluoroscopy time was 14.2 seconds. Total skin dose was 4.07 mGy. Comparison: None available at the time of this dictation. FINDINGS/IMPRESSION: Intraoperative images of retrograde pyelogram and stent placement were obtained. Please correlate with intraoperative fluoroscopy and operative report. ACT 112: Negative or not required by law. Electronically signed by: Yuan Jorge M.D. 10/12/2021 11:04 AM Dictated:10/12/214 Transcribed: 10/12/211103 ULTRASOUND KIDNEYS AND BLADDER CLINICAL HISTORY: Elevated creatinine. COMPARISON STUDY: Abdominal CT dated 10/11/2021. TECHNIQUE: Real-time, grayscale, and color flow sonography of the kidneys and bladder is performed. Images are reviewed in the transverse and longitudinal planes. FINDINGS: Kidneys: The kidneys demonstrate cortical atrophy. Echotexture is normal. The right kidney measures 11.0 x 6.1 x 6.3 cm and the left kidney measures 10.8 x 6.8 x 6.5 cm. There is fullness of the left renal collecting system without hydronephrosis. Bilateral shadowing calculi measure up to 7 mm. Bilateral renal cysts measure up to 5.1 cm. There is no sonographic evidence of contour deforming renal mass lesion. No perinephric fluid is identified. Bladder: The bladder is decompressed and not well evaluated. The bladder contains the distal end of a left ureteral stent. Both ureteral jets were seen. IMPRESSION: 1. The kidneys demonstrate cortical atrophy and are without hydronephrosis. 2. There is mild fullness of the left renal collecting system. A left ureteral stent is in place. 3. Bilateral nephrolithiasis. 4. The bladder was decompressed and not well assessed. ACT 112: Negative or not required by law. Electronically signed by: Caesar Yoon M.D. 10/15/2021 11:06 AM Dictated:10/15/211102 Transcribed: 01/06/[address] abd pelvis wo con CLINICAL HISTORY: Fever TECHNIQUE: Helical axial images of the abdomen and pelvis were obtained. Automated dose lowering techniques and/or adjustment according to patient size were utilized for this exam. This exam was performed without intravenous contrast. COMPARISON: Comparison is made to CT abdomen pelvis 10/31/2021 FINDINGS: Lower chest: Bibasilar atelectasis versus scarring is seen. Liver: Unremarkable. No focal lesions are seen. Gallbladder and biliary tree: Patient is status post cholecystectomy. Physiologic prominence of the biliary ducts is noted. Pancreas: Fatty replacement of the pancreas is seen. Spleen: Unremarkable. Adrenals: Unremarkable. Kidneys and ureters: Subcentimeter hypodensities are too small to characterize. The left kidney is atrophic. There is a left nephroureteral stent with remaining pelviectasis. Nonobstructive stones are seen. Bladder: Hernandez catheter is seen. Fat stranding is seen about the bladder. Reproductive organs: Unremarkable. Bowel: A hiatal hernia is seen. Patient status post bowel surgery. Lymph nodes Retroperitoneal: Unremarkable. Mesenteric: Unremarkable. Pelvic: Unremarkable. Peritoneum: Normal Vessels: Unremarkable. Abdominal wall: There is a small fat and bowel containing infraumbilical hernia. Bones: Degenerative changes in the visualized spine. IMPRESSION: 1. Left nephroureteral stent with remaining pelviectasis and left cortical thinning. Bilateral nephrolithiasis. 2. Fat stranding about a collapsed bladder drained by a Hernandez catheter. Correlation with urinalysis is recommended to exclude urinary tract infection. 3. Additional findings as above. ACT 112: Negative or not required by law. Electronically signed by: Yuan Jorge M.D. 10/16/2021 10:35 AM Dictated:10/16/21 1025 Transcribed: 10/16/21 1025 XR chest 1V portable HISTORY: 66 years-old Female f/u follow-up study in a patient with shortness of breath COMPARISON: Chest radiograph 10/19/2021 TECHNIQUE: Portable AP view of the chest FINDINGS: Interval removal of the endotracheal and enteric tubes. Right IJ central venous catheter is unchanged. No pneumothorax or large pleural effusion. Interstitial coarsening mild midlung and bibasilar opacities. There is overall improved aeration of the lungs compared to prior study. The bones appear grossly intact. IMPRESSION: 1. Interval removal of the endotracheal and enteric tubes. 2. Mildly improved aeration of the lungs. ACT 112: Negative or not required by law. The above report was generated using voice recognition software. It may contain grammatical, syntax or spelling errors. Electronically signed by: Lang Calderon M.D. 10/20/2021 8:29 AM Dictated:10/20/21827 Transcribed: 10/20/21827 Hospital Course (1) Acute metabolic encephalopathy: (2) Obstructive pyelonephritis: (3) Ureteral calculus: (4) Complicated UTI (urinary tract infection): (5) Pain due to ureteral stent: 65 yo F with DM II, COPD, CKD III, HTN, bipolar disorder, chronic respiratory failure on home O2 (2L), laparoscopic colectomy total w/o proctectomy w/ ileostomy and ileoproctostomy in 2010 for colon Ca presented 10/11/21 w/ fever, chills, and abdominal pain. CT ABD/pelvis on admission showed 5 mm obstructing calculus just above the left vesicoureteral junction causing minimal left hydroureteronephrosis and possible evidence of pyelonephritis. S/p cystoscopy with left retrograde pyelogram aspiration and stent placement by Dr. Adam on 10/12 Patient had 2 negative urine cultures and negative blood cultures however given clinical picture concerning for infectious process, patient has remained on Rocephin Patient continued to have some stent discomfort with urination however improved with addition of Tylenol #3. Hernandez removed on 10/13. Urology repeated renal ultrasound to evaluate for possible hydronephrosis on 10/15 in setting of worsening renal function - no evidence of hydro Significant clinical decline as of AM on 10/16/21 - transferred to ICU for closer monitoring due to obtunded state with respiratory acidosis with pH of 7.16, Also febrile and hypotensive Blood cultures obtained, abx broadened to cefepime and vanco (vanco discontinued after negative mrsa swab) Urology repeated CT abd/pelvis showing left nephroureteral stent with remaining pelviectasis and left cortical thinning. Bilateral nephrolithiasis Per urology, no hydro or obstruction. Bladder is decompressed. No urology intervention at this time. Repeat urine cultures Obtaining a head CT wo con due to reported fall by RN. Appeared that patient slid off of commode but unwitnessed. CT head negative Patient was started on BiPAP, however 10/17 AM, still significant respiratory acidosis, with low pH and elevated PCO2. Also patient continued to be obtunded therefore patient was intubated on 10/17/21 On October 18, patient underwent bronchoscopy and October 19, patient extubated I reached out to urology about voiding trial. If able to void, will d/c the hernandez Hernandez catheter removed yesterday (6) Acute respiratory acidosis: (7) Chronic respiratory failure with hypoxia: On 10/17 intubated on [facility] Ventilation due to altered mental status, respiratory acidosis 10/19 -patient extubated, currently on 6 L of supplemental O2 CXR showed new focal airspace opacity within the right lung apex with mild right mediastinal shift. Patchy left basilar airspace opacity has slightly improved. S/P bronchoscopy on no endobronchial lesion was identified. There were mucoid secretions present in the bronchus intermedius. Repeat CXR on 10/20 showed mildly improved aeration of the lungs. Diuresing very well yesterday after giving 40 mg IV Lasix x1 Oxygen supplement has been improved, currently on 2 L nasal cannula which is baseline Clinically improved significantly (8) Acute kidney injury superimposed on chronic kidney disease: Worsening renal function in past few days from 2.1 --> 2.4 --> 3.[address] abd/pelvis 10/16 showing left nephroureteral stent with remaining pelviectasis and left cortical thinning. No hydro or obstruction. Nephrology on board Cr improved to 1.7 Continue monitor BMP Hypokalemia Potassium 3.3 today Continue potassium supplement Monitor BMP (9) Morbid obesity with BMI of 40.0-44.9, adult: BMI 44.9 Lifestyle modifications encouraged (10) Diabetes mellitus, type 2: Hgb A1c 6.5 10/12/2021 Hold oral agents and utilize Lantus and NovoLog per protocol while hospitalized (11) Anemia: Hgb 11.6 --> 9.4 --> 10.2 --> 8.8 --> 9.6 --> 8.9 --> 7.6-->8.2 today No signs of bleeding, poss. dilutional in comb. of frequent blood draws Continue monitor CBC (12) DVT prophylaxis: SQ heparin Dispo - We will discharge when medically stable Total Time Total Time Spent Total Time Spent (In Minutes): 35 minutes Discharge Plan Discharge Items Patient Disposition: Home - Home Health Services Reason For Visit: ABD PAIN Discharge Diagnosis: (1) Acute metabolic encephalopathy: (2) Obstructive pyelonephritis: (3) Ureteral calculus: (4) Complicated UTI (urinary tract infection): (5) Pain due to ureteral stent (6) Acute respiratory acidosis: (7) Chronic respiratory failure with hypoxia: (8) Acute kidney injury superimposed on chronic kidney disease: (9) Hypokalemia (10) Morbid obesity with BMI of 40.0-44.9, adult: (11) Diabetes mellitus, type 2: (12) Anemia: Activity: Resume your previous activity Non-emergency contact: Primary Care Provider Call non-emergency contact if: you have any medication questions Follow-up/Referrals: Lo Chand DO [Primary Care Provider] - (Date & Time 10/16/2021 9:10 AM Provider Lo Chand DO Department Family [facility] ) Diet: Heart Healthy Addtl Attending Provider Instructions: Follow up with your primary care provider within 1 week. (office will call you for the appointment) Follow up with urology for the stent removal (please call urology office for the appointment) Follow up with nephrology Continue physical and occupational therapy Check BMP in 1 -2 week to monitor your renal function and electrolytes Continue oxygen supplement with 2L nasal canula Fall precaution Continue to hold the Duloxetine and Doxepin for now, your provider will instruct you when to resume them if you need to. Pending Studies at Discharge: No Stand-Alone Forms: My [facility] [employer], Smoking Cessation Medications and DC Order Prescriptions: Continued ondansetron 4 mg tablet,disintegrating 4 mg PO Q8H PRN (Reason: nausea and vomiting) Qty: 10 RF: 0 metoprolol succinate 50 mg tablet extended release 24 hr 50 mg PO QAM RF: 0 Trelegy Ellipta 100-62.5-25 mcg blister with device 1 inh inhalation DAILY PRN (Reason: Shortness Of Breath) RF: 0 metoprolol succinate 25 mg tablet extended release 24 hr 25 mg PO PM RF: 0 albuterol sulfate 90 mcg/actuation Hfa Aerosol Inhaler 2 puff INHALATION Q4H PRN (Reason: Shortness Of Breath) RF: 0 magnesium oxide 400 mg magnesium Tablet 400 mg PO HS RF: 0 atorvastatin [Lipitor] 40 mg Tablet 40 mg PO QPM RF: 0 clopidogrel [Plavix] 75 mg Tablet 75 mg PO QPM RF: 0 pantoprazole [Protonix] 40 mg Tablet,Delayed Release (Dr/Ec) 40 mg PO BID RF: 0 riboflavin (vitamin B2) 400 mg Tablet 400 mg PO QPM RF: 0 cholecalciferol (vitamin D3) [Vitamin D3] 2,000 unit Capsule 2,000 unit PO QAM RF: 0 oxcarbazepine 300 mg tablet 300 mg PO BID RF: 0 acetaminophen [Tylenol Extra Strength] 500 mg Tablet 1,000 mg PO AMHS RF: 0 glipizide [Glucotrol XL] 2.5 mg tablet extended release 24hr 2.5 mg PO PM RF: 0 Discontinued doxepin 50 mg Capsule 50 mg PO HS RF: 0 duloxetine 60 mg capsule,delayed release(DR/EC) 60 mg PO DAILY RF: 0 Discharge Orders: Discharge Order (Routine); Ordered 10/24/21 Ordered By: Yesica Garza/Other Patient Handouts: A1C, Managing Type 2 Diabetes Admission Data Admit Date/Time: 10/11/21 20:18 Attending Provider: Yesica Grande Admit Provider: Arie Covarrubias Primary Care Provider: Lo Chand Other Providers: Davion Hector ; Olivia Jo ; Johanna Harris ; Drake Buenrostro ; Arie Covarrubias ; Filomena Doss ; Ronda Niño ; Donnie Millard Other Interventions: Discharge Summary Assessment (RN) Last Done: 10/24/21 14:00
--- NOTE | 2021-11-09 18:30 | Hospitalist Progress Note ---
Date of Service October 20, 2021 (late entry) Assessment & Plan (1) Obstructive pyelonephritis: (2) Acute metabolic encephalopathy: Plan: (1) Acute metabolic encephalopathy: (2) Obstructive pyelonephritis: (3) Ureteral calculus: (4) Complicated UTI (urinary tract infection): (5) Pain due to ureteral stent: Plan: 65 yo F with DM II, COPD, CKD III, HTN, bipolar disorder, chronic respiratory failure on home O2 (2L), laparoscopic colectomy total w/o proctectomy w/ ileostomy and ileoproctostomy in 2010 for colon Ca presented 10/11/21 w/ fever, chills, and abdominal pain. CT ABD/pelvis on admission showed 5 mm obstructing calculus just above the left vesicoureteral junction causing minimal left hydroureteronephrosis and possible evidence of pyelonephritis. S/p cystoscopy with left retrograde pyelogram aspiration and stent placement by Dr. Adam on 10/12 Patient had 2 negative urine cultures and negative blood cultures however given clinical picture concerning for infectious process, patient has remained on Rocephin Patient continued to have some stent discomfort with urination however improved with addition of Tylenol #3. Purvis removed on 10/13. Urology repeated renal ultrasound to evaluate for possible hydronephrosis on 10/15 in setting of worsening renal function - no evidence of hydro Significant clinical decline as of AM on 10/16/21 - transferred to ICU for closer monitoring due to obtunded state with respiratory acidosis with pH of 7.16, Also febrile and hypotensive Blood cultures obtained, abx broadenedto cefepime and vanco(vanco discontinued after negative mrsa swab) Urology repeated CT abd/pelvis showing left nephroureteral stent with remaining pelviectasis and left cortical thinning. Bilateral nephrolithiasis Per urology, no hydro or obstruction. Bladder is decompressed. No urology intervention at this time. Repeat urine cultures Obtaining a head CT wo con due to reported fall by RN. Appeared that patient slid off of commode but unwitnessed. CT head negative Patient was started on BiPAP, however 10/17 AM, still significant respiratory acidosis, with low pH and elevated PCO2. Also patient continued to be obtunded therefore patient was intubated on 10/17/21 On October 18, patient underwent bronchoscopy October 19, patient extubated (6) Acute respiratory acidosis: Plan: Obtunded AM, 10/16/21. ABG with pH of 7.16, pCO2 of 59, bicarb 20. Also with worsening renal function History of CALI but not on CPAP - on chronic 2L NC O2 Last received narcotics on 10/15 at 1300 Bipap started at 0600 - continue. Management per biophysics professor Bicarb drip initiated Despite being on BiPAP, patient obtunded on 10/17 a.m., with low pH, and elevated PCO2, therefore decision made to intubate the patient. Electrolytes improved, nephrology following (7) Acute kidney injury superimposed on chronic kidney disease: Plan: Worsening renal function in past few days from 2.1 --> 2.4 --> 3.[address] abd/pelvis 10/16 showing left nephroureteral stent with remaining pelviectasis and left cortical thinning. No hydro or obstruction. Bladder is decompressed Consulting nephrology for further recommendations Cr improved to 2.5 Renal function improved, nephrology following (8) Chronic respiratory failure with hypoxia: Plan: Baseline - chronic 2 L of oxygen On 10/17 intubated due to altered mental status, respiratory acidosis 10/19 -patient extubated 10/20- currently on supplemental O2 (chronic) 10/18 CXR 1.There is a new focal airspace opacity within the right lung apex with mild right mediastinal shift. This likely represents partial right upper lobe collapse. Consider pulmonary consultation with bronchoscopy for further evalua tion to assess for mucous plugging. 2. Patchy left basilar airspace opacity has slightly improved. 10/18 underwent bronchoscopy - Patient underwent bronchoscopy due to questionable right upper lobe atelectasis. No endobronchial lesion was identified. There were mucoid secretions present in the bronchus intermedius. She is on minimal vent settings this morning. 10/19 CXR 1. Satisfactory positioning of lines and tubes. 2. Bilateral airspace opacities, as described above. Increase in right lower lung opacity which could reflect pneumonia or atelectasis. (9) Morbid obesity with BMI of 40.0-44.9, adult: Plan: BMI 44.9 Lifestyle modifications encouraged (10) Diabetes mellitus, type 2: Plan: Hgb A1c 6.5 10/12/2021 Hold oral agents and utilize Lantus and NovoLog per protocol while hospitalized (11) Anemia: Plan: Hgb 11.6 --> 9.4 --> 10.2 --> 8.8 --> 9.6 --> 8.9 --> 7.7 No signs of bleeding, poss. dilutional in comb. of frequent blood draws FOBT ordered (12) DVT prophylaxis: Plan: SQ heparin Dispo- Downgrade from ICU today Admission and Anticipated Discharge Date Admission Date: October 11, 2021 Subjective Patient seen in follow-up of altered mental status Initially admitted for pyelonephritis, underwent cystoscopy and stent placement on October 12 On 10/16 patient was transferred to ICU, as she was obtunded, pH low, and CO2 elevated. She was started on BiPAP however without much improvement next morning. Therefore patient was intubated on 10/17. She underwent bronchoscopy on October 18. Extubated yesterday , October 19 Currently patient is lying in bed, mental status much improved, she is able to answer questions appropriately Denies any complaints, except for some edema and mild lower abd. discomfort Uses suppl. O2 Review of Systems Review of Systems: All systems reviewed & are unremarkable except as noted in Subjective Physical Exam Physical Exam: Constitutional:L morbidly obese F, in NAD, on suppl.O 2 Eyes: opens eyes, PERRL, EOMI ENMT: Ears: no external ear abnormality N ose: no external n ose abnormality Neck: R IJ placed Respiratory: + rhonchi, no whe ezing, no accessor y muscle use (impr luis from previous exam) Cardiovascular:L Rate/Rhythm: regul ar rhythm Gastrointestinal ( Abdomen): normal bowel sound s, soft, obese Musculoskeletal: +1 LE edema Skin: no rashes, warm an d dry Neurologic: Awake, alert and o riented, able to a nswer questions ap propriately (much improved), moves e xtremities
== END 2021-10-24 14:31 | disposition home health service (06) | DRG 659 ==
LOC: ED 13:47 → SUATTDRO 20:18 → EDINP 20:18 → 2S 10-12 10:05 → 3W 10-13 13:25 → 1E 10-16 10:27 → 2S 10-20 18:09
DX: T83.84XA Pain due to genitourinary prosthetic devices, implants and grafts, initial encounter; E66.01 Morbid (severe) obesity due to excess calories; Z99.11 Dependence on respirator [ventilator] status; N17.9 Acute kidney failure, unspecified; E83.39 Other disorders of phosphorus metabolism; J96.11 Chronic respiratory failure with hypoxia; Z88.1 Allergy status to other antibiotic agents; D64.9 Anemia, unspecified; Z68.41 Body mass index [BMI] 40.0-44.9, adult; N18.4 Chronic kidney disease, stage 4 (severe); N13.6 Pyonephrosis; E87.4 Mixed disorder of acid-base balance; F31.9 Bipolar disorder, unspecified; I13.0 Hypertensive heart and chronic kidney disease with heart failure and stage 1 through stage 4 chronic kidney disease, or unspecified chronic kidney disease; Z85.038 Personal history of other malignant neoplasm of large intestine; Z79.84 Long term (current) use of oral hypoglycemic drugs; I25.2 Old myocardial infarction; E86.0 Dehydration; Y92.239 Unspecified place in hospital as the place of occurrence of the external cause; J44.9 Chronic obstructive pulmonary disease, unspecified; Z87.440 Personal history of urinary (tract) infections; Z91.041 Radiographic dye allergy status; Z79.02 Long term (current) use of antithrombotics/antiplatelets; Z88.8 Allergy status to other drugs, medicaments and biological substances; J98.11 Atelectasis; G93.41 Metabolic encephalopathy; E87.6 Hypokalemia; Z88.5 Allergy status to narcotic agent; I50.9 Heart failure, unspecified; E11.22 Type 2 diabetes mellitus with diabetic chronic kidney disease

== ENCOUNTER 2021-10-29 12:34 | Inpatient (IN) ==
[2021-10-29 14:49] LABS: Basophils # (auto) 0.03 K/uL (0-0.2); Basophils % (auto) 0.4 %; Eosinophils # (auto) 0.11 K/uL (0-0.5); Eosinophils % (auto) 1.3 %; Hematocrit (blood only) 31.1 % (37-47); Hemoglobin 8.9 g/dL (12.0-16.0); Immature Granulocytes # (auto) 0.04 K/uL (0.00-0.02); Immature Granulocytes % (auto) 0.5 %; Lymphocytes # (auto) 0.59 K/uL (1.2-3.4); Lymphocytes % (auto) 7.2 %; Mean Corpuscular Hemoglobin 29.2 pg (25-34); Mean Corpuscular Hgb Conc 28.6 g/dL (32-36); Mean Platelet Volume 9.9 fL (7.4-10.4); Monocytes % (auto) 15.9 %; Neutrophils # (auto) 6.13 K/uL (1.4-6.5); Neutrophils % (auto) 74.7 %; Platelet Count 261 K/uL (130-400); RDW Coefficient of Variation 14.6 % (11.5-14.5); RDW Standard Deviation 54.4 fL (36.4-46.3); Red Blood Count 3.05 M/uL (4.2-5.4)
[2021-10-29 15:08] LABS: Alanine Aminotransferase 12 U/L (7-52); Albumin Level 3.3 gm/dl (3.4-5.0); Alkaline Phosphatase 92 U/L (34-104); Anion Gap 9 (3-11); Aspartate Aminotransferase 19 U/L (13-39); BUN Creatinine Ratio 5.2 (10-20); Bilirubin,Total 0.4 mg/dl (0.2-1.0); Blood Urea Nitrogen 8 mg/dl (6-23); Calcium 8.7 mg/dl (8.5-10.1); Carbon Dioxide 30 mmol/L (21-32); Chloride 104 mmol/L (98-107); Est GFR (African American) 40.1 ml/min; Est GFR (Non-African American) 34.6 ml/min; Globulin 3.2 gm/dl (2.5-4.0); Glucose 114 mg/dl (70-99(Fasting)); Potassium 3.6 mmol/L (3.5-5.1); Sodium 143 mmol/L (136-145); Total Protein 6.5 gm/dl (6.0-8.3)
[2021-10-29] MEDS ORDERED: ONDANSETRON INJ 2 MG/ML 2 ML VIAL IV STA (16:47)
[2021-10-29] MEDS ORDERED: SODIUM CHLORIDE 0.9% 1000ML 500 ML IV ONE (16:47)
--- NOTE | 2021-10-29 16:53 | Emergency Department Note ---
History of Present Illness General Chief complaint: Illness Stated complaint: ILLNESS Time Seen by Provider: 10/29/21 16:35 Source: patient History of Present Illness Provider complaint: Vomiting Onset (ago): day(s) Location: abdomen Pain Consistency: + intermittent Maximum Pain Intensity: 8 Quality: + other (Vomiting) Exacerbated By: + eating Associated symptoms: + fever/chills, + nausea/vomiting and + shortness of breath; no chest pain or no cough This is a 66-year-old female who was just discharged from the hospital 5 days ago for pyelonephritis due to an obstructing kidney stone. She had a stent placed. She was treated with antibiotics in the hospital but not discharged on any antibiotics. She states that as soon as she was discharged she has not been able to eat or drink much. She states that she vomits. She is able to keep down ice water but vomits anytime she tries to eat anything. She has been urinating normally with normal color. She does complain of continued pain in the left flank which is unchanged from her previous hospitalization. She does state that she had a fever of 100.9 today. She denies any cough or cold symptoms, chest pain or shortness of breath above her baseline. She has a history of COPD and asthma and normally short of breath with exertion. She is on 2 L of oxygen via nasal cannula daily. She has had no diarrhea. Has not had any bowel movement in a few days. Home Medications Medication Instructions Recorded Confirmed Type atorvastatin 40 mg tablet (Lipitor) 40 mg PO QPM 07/12/18 10/29/21 History clopidogrel 75 mg tablet (Plavix) 75 mg PO QPM 07/12/18 10/29/21 History pantoprazole 40 mg tablet,delayed 40 mg PO BID 07/12/18 10/29/21 History release (Protonix) riboflavin (vitamin B2) 400 mg 400 mg PO QPM 07/12/18 10/29/21 History tablet cholecalciferol (vitamin D3) 50 2,000 unit PO QAM 05/16/19 10/29/21 History mcg (2,000 unit) capsule (Vitamin D3) albuterol sulfate 90 mcg/actuation 2 puff INHALATION Q4H PRN 07/21/19 10/29/21 History aerosol inhaler magnesium oxide 400 mg PO HS 10/05/19 10/29/21 History fluticasone fur. 100 mcg-umeclid 1 inh INHALATION DAILY PRN 12/11/20 10/29/21 History 62.5 mcg-vilant 25 mcg inhalat.powder (Trelegy Ellipta) metoprolol succinate 25 mg 25 mg PO PM tab 12/11/20 10/29/21 History tablet,extended release 24 hr metoprolol succinate 50 mg 50 mg PO QAM 12/11/20 10/29/21 History tablet,extended release 24 hr glipizide 2.5 mg tablet, extended 2.5 mg PO PM 04/29/21 10/29/21 History release 24 hr (Glucotrol XL) ondansetron 4 mg disintegrating 4 mg PO Q8H PRN #10 tab 06/02/21 10/29/21 Rx tablet acetaminophen 500 mg tablet 1,000 mg PO AMHS 10/11/21 10/29/21 History (Tylenol Extra Strength) oxcarbazepine 300 mg tablet 300 mg PO BID 10/11/21 10/29/21 History Allergies Allergy/AdvReac Type Severity Reaction Status Date / Time salicylates Allergy Severe SHORTNESS Verified 10/29/21 16:28 OF BREATH Iodinated Contrast Media Allergy Intermediate EYES Verified 10/29/21 16:28 SWELLING/Hives amoxicillin [From Augmentin] Allergy Mild Rash Verified 10/29/21 16:28 aspirin Allergy Mild FACIAL Verified 10/29/21 16:28 SWELLING clavulanic acid Allergy Mild Rash Verified 10/29/21 16:28 [From Augmentin] hydromorphone Allergy Mild RASH/ITCHIN Verified 10/29/21 16:28 G fentanyl Allergy itching/felt Verified 10/29/21 16:28 like throat closing meperidine AdvReac Intermediate ITCH Verified 10/29/21 16:28 morphine AdvReac Intermediate ITCH Verified 10/29/21 16:28 tramadol AdvReac Mild itch Verified 10/29/21 16:28 Past Med/Surg History Medical History Acute UTI (urinary tract infection) has presently per pt Anxiety Asthma well controlled per pt, rare inh use CHF (congestive heart failure) follows with Dr. Singh Chronic back pain Chronic headaches Chronic renal insufficiency stage 3, following with [facility] nephrology ([place]) Chronic respiratory failure with hypoxia Was on home oxygen in the past but no longer using at this time CKD (chronic kidney disease) COPD (chronic obstructive pulmonary disease) Deep vein thrombosis LLE - COULD NOT RECALL DATE - REPORTS SHE WAS TREATED AT [facility] W/ BLOOD THINNERS Depression Diabetes mellitus, type 2 GERD (gastroesophageal reflux disease) History of colon cancer 2012 S/P BOWEL RESECTION. History of COVID-27 Sep 2020 HTN (hypertension) Hyperlipidemia Mood disorder Morbid obesity with BMI of 40.0-44.9, adult Myocardial Infarction 06/2016--> [facility] -- CARDIAC CATH --> normal coronary anatomy without coronary obstruction but Plavix started per [facility] discharge summary On anticoagulant therapy plavix daily CALI (obstructive sleep apnea) Poor historian Seizure Pt states "i think i had them a long time ago". no other information. No hx of seizures noted in records Sinus tachycardia Follows with cardio Surgical History H/O hand surgery RIGHT History of appendectomy History of bilateral cataract extraction History of blepharoplasty History of cardiac cath 03/2018 - MD - DENIES STENTS/ANGIOPLASTY - [facility] - FOLLOWS W/ DR. SINGH History of closure of ileostomy History of colectomy due to colon cancer History of colonoscopy History of cystoscopy History of esophageal dilatation History of esophagogastroduodenoscopy (EGD) History of hysterectomy History of kidney surgery at age 9 yrs "something was wrong and had to fix it" History of lithotripsy History of tooth extraction History of total abdominal hysterectomy and bilateral salpingo-oophorectomy Hx of cholecystectomy Family History Other Breast cancer Social History Smoking Status: Never smoker Second Hand Exposure: Yes (in past); Hx Alcohol Use: No Hx Substance Use: No Preferred Language: Albanian Communication Ability: Effective Events Assistant Required: No Beliefs That Will Affect Care: Hoahaoism marital status: Current Living Situation: Alone Current Living Situation Comment: Home health Feels Safe at Home: Yes Assistive Devices: Oxygen - Continuous and Walker Review of Systems See HPI for pertinent positives & negatives. and A total of 10 systems reviewed and were otherwise negative Physical Exam Vital Signs Vital Signs - 24 hr 10/29/21 13:05 10/29/21 16:01 10/29/21 16:12 Temperature 36.4 C L Temperature Source Temporal Artery Scan Pulse Rate 96 H 91 H Pulse Rate [Apical] 110 H Pulse Rate from SpO2 Sensor 92 H Pulse Rhythm [Apical] Pulse Strength [Apical] Respiratory Rate 18 22 18 Respiratory Effort / Characteristics Non-Labored Spontaneous Non-Labored Respiratory Depth Normal Respiratory Pattern Regular Blood Pressure 152/89 H Blood Pressure [Left Arm] 137/67 Blood Pressure Mean 110 Blood Pressure Mean [Left Arm] 90 Blood Pressure Position Sitting Blood Pressure Position [Left Arm] Pulse Oximetry 98 100 100 Oxygen Delivery Method Room Air Room Air Nasal Cannula Nasal Cannula Oxygen Flow Rate 2 2 Sepsis Recent Fever Within 48 Hours No Sepsis New/Unexplained Change in Mental Status No Sepsis Action Taken by Nursing No Action Required 10/29/21 16:30 10/29/21 17:00 10/29/21 17:01 Temperature Temperature Source Pulse Rate 82 98 H Pulse Rate [Apical] Pulse Rate from SpO2 Sensor 81 97 H 83 Pulse Rhythm [Apical] Pulse Strength [Apical] Respiratory Rate 18 19 22 Respiratory Effort / Characteristics Respiratory Depth Respiratory Pattern Blood Pressure 134/87 137/99 Blood Pressure [Left Arm] Blood Pressure Mean 102 111 Blood Pressure Mean [Left Arm] Blood Pressure Position Blood Pressure Position [Left Arm] Pulse Oximetry 100 100 100 Oxygen Delivery Method Room Air Room Air Room Air Oxygen Flow Rate Sepsis Recent Fever Within 48 Hours Sepsis New/Unexplained Change in Mental Status Sepsis Action Taken by Nursing 10/29/21 17:30 10/29/21 18:00 10/29/21 18:04 Temperature Temperature Source Pulse Rate 88 88 Pulse Rate [Apical] 83 Pulse Rate from SpO2 Sensor 90 Pulse Rhythm [Apical] Regular Pulse Strength [Apical] Normal Respiratory Rate 19 14 15 Respiratory Effort / Characteristics Non-Labored Respiratory Depth Normal Respiratory Pattern Regular Blood Pressure Blood Pressure [Left Arm] 149/91 H Blood Pressure Mean Blood Pressure Mean [Left Arm] 110 Blood Pressure Position Blood Pressure Position [Left Arm] Lying Pulse Oximetry 99 100 Oxygen Delivery Method Room Air Nasal Cannula Oxygen Flow Rate 2 Sepsis Recent Fever Within 48 Hours Sepsis New/Unexplained Change in Mental Status Sepsis Action Taken by Nursing 10/29/21 18:30 10/29/21 19:00 10/29/21 19:30 Temperature Temperature Source Pulse Rate 84 80 82 Pulse Rate [Apical] Pulse Rate from SpO2 Sensor 83 79 81 Pulse Rhythm [Apical] Pulse Strength [Apical] Respiratory Rate 23 19 19 Respiratory Effort / Characteristics Respiratory Depth Respiratory Pattern Blood Pressure 154/83 H 149/91 H 163/103 H Blood Pressure [Left Arm] Blood Pressure Mean 106 110 123 Blood Pressure Mean [Left Arm] Blood Pressure Position Blood Pressure Position [Left Arm] Pulse Oximetry 99 100 100 Oxygen Delivery Method Nasal Cannula Nasal Cannula Nasal Cannula Oxygen Flow Rate 2 2 2 Sepsis Recent Fever Within 48 Hours Sepsis New/Unexplained Change in Mental Status Sepsis Action Taken by Nursing Constitutional: Vital signs reviewed. Eyes: Pupils are equal round reactive to light. Conjunctiva are noninjected. ENT: Pharynx is clear without erythema or exudate. Mucous membranes are dry. Neck supple without meningeal signs. Respiratory: Clear to auscultation bilaterally. Breath sounds are equal bilaterally. Cardiovascular: Regular rate and rhythm. No rubs or gallops. GI: Soft, nondistended and nontender. Bowel sounds are present. Musculoskeletal: No peripheral edema. No lower extremity tenderness. Integumentary: No cyanosis. or jaundice. Neurological: The patient is awake and alert. No focal deficits. Psychiatric: Normal affect. Not anxious appearing. Course Administered Medications Discontinued Medications Acetaminophen (Acetaminophen 325 Mg Tab) 650 mg PO NOW STA Stop: 10/29/21 17:46 Last Admin: 10/29/21 17:56 Dose: 650 mg Documented by: [id number] Sodium Chloride (Nss 1000ml) 500 mls @ 999 mls/hr IV .Q31M ONE Stop: 10/29/21 17:17 Last Infusion: 10/29/21 17:43 Dose: 0 mls/hr Documented by: [id number] Admin: 10/29/21 17:07 Dose: 999 mls/hr Documented by: [id number] Ondansetron HCl (Ondansetron Inj 2 Mg/Ml 2 Ml Vial) 4 mg IV NOW STA Stop: 10/29/21 16:48 Last Admin: 10/29/21 17:07 Dose: 4 mg Documented by: [id number] Medical Decision Making Differential Diagnosis PERRI, electrolyte abnormality, dehydration, pneumonia, UTI, pyelonephritis, bacteremia, sepsis Medical Records Attestation: I reviewed the patient's medical records. I did perform a limited focused review of portions of the patient's old chart on the electronic medical record. The patient was just discharged from the hospital 5 days ago. She was admitted and had a prolonged hospital stay due to obstructive uropathy from a ureteral stone causing pyelonephritis. She had a ureteral stent placed. She ended up in the ICU with respiratory distress. Home Medications Current Medication List: was personally reviewed by me Laboratory Data Attestation: I reviewed the patient's lab results. Result diagrams: 10/29/21 14:20 10/29/21 14:20 Lab Results 10/29/21 10/29/21 10/29/21 Range/Units 14:20 14:20 17:07 WBC 8.20 (4.8-10.8) K/uL RBC 3.05 L (4.2-5.4) M/uL Hgb 8.9 L (12.0-16.0) g/dL Hct 31.1 L (37-47) % MCV 102.0 H (80-100) fL MCH 29.2 (25-34) pg MCHC 28.6 L (32-36) g/dL RDW Std Deviation 54.4 H (36.4-46.3) fL RDW Coeff of Teresa 14.6 H (11.5-14.5) % Plt Count 261 (130-400) K/uL MPV 9.9 (7.4-10.4) fL Immature Gran % (Auto) 0.5 % Neut % (Auto) 74.7 % Lymph % (Auto) 7.2 % [place] % (Auto) 15.9 % Eos % (Auto) 1.3 % Baso % (Auto) 0.4 % Neut # (Auto) 6.13 (1.4-6.5) K/uL Lymph # (Auto) 0.59 L (1.2-3.4) K/uL [place] # (Auto) 1.30 H (0.11-0.59) K/uL Eos # (Auto) 0.11 (0-0.5) K/uL Baso # (Auto) 0.03 (0-0.2) K/uL Immature Gran # (Auto) 0.04 H (0.00-0.02) K/uL Sodium 143 (136-145) mmol/L Potassium 3.6 (3.5-5.1) mmol/L Chloride 104 (98-107) mmol/L Carbon Dioxide 30 (21-32) mmol/L Anion Gap 9 (3-11) BUN 8 (6-23) mg/dl Creatinine 1.53 H (0.6-1.2) mg/dl Est Cr Clr Drug Dosing Not Reportable Est GFR ( Amer) 40.1 ml/min Est GFR (Non-Af Amer) 34.6 ml/min BUN/Creatinine Ratio 5.2 L (10-20) Glucose 114 H (70-99(Fasting)) mg/dl Lactate (0.4-2.0) mmol/L Calcium 8.7 (8.5-10.1) mg/dl Total Bilirubin 0.4 (0.2-1.0) mg/dl AST 19 (13-39) U/L ALT 12 (7-52) U/L Alkaline Phosphatase 92 (34-104) U/L Total Protein 6.5 (6.0-8.3) gm/dl Albumin 3.3 L (3.4-5.0) gm/dl Globulin 3.2 (2.5-4.0) gm/dl Albumin/Globulin Ratio 1.0 (0.9-2) Urine Color Urine Appearance (Clear) Urine pH (4.5-7.5) Ur Specific [place] (1.000-1.030) Urine Protein (Negative) Urine Glucose (UA) (Negative) Urine Ketones (Negative) Urine Blood (Negative) Urine Nitrite (Negative) Urine Bilirubin (Negative) Urine Urobilinogen (Negative) Ur Leukocyte Esterase (Negative) Urine WBC (Auto) (0-5) /hpf Urine RBC (Auto) (0-4) /hpf U Hyaline Cast (Auto) (0-5) /lpf U Epithel Cells (Auto) (0-5) /lpf Urine Bacteria (Auto) (Negative) SARS-CoV-2, RNA, NAAT POSITIVE A* (NEGATIVE) 10/29/21 10/29/21 Range/Units 17:30 19:20 WBC (4.8-10.8) K/uL RBC (4.2-5.4) M/uL Hgb (12.0-16.0) g/dL Hct (37-47) % MCV (80-100) fL MCH (25-34) pg MCHC (32-36) g/dL RDW Std Deviation (36.4-46.3) fL RDW Coeff of Teresa (11.5-14.5) % Plt Count (130-400) K/uL MPV (7.4-10.4) fL Immature Gran % (Auto) % Neut % (Auto) % Lymph % (Auto) % [place] % (Auto) % Eos % (Auto) % Baso % (Auto) % Neut # (Auto) (1.4-6.5) K/uL Lymph # (Auto) (1.2-3.4) K/uL [place] # (Auto) (0.11-0.59) K/uL Eos # (Auto) (0-0.5) K/uL Baso # (Auto) (0-0.2) K/uL Immature Gran # (Auto) (0.00-0.02) K/uL Sodium (136-145) mmol/L Potassium (3.5-5.1) mmol/L Chloride (98-107) mmol/L Carbon Dioxide (21-32) mmol/L Anion Gap (3-11) BUN (6-23) mg/dl Creatinine (0.6-1.2) mg/dl Est Cr Clr Drug Dosing Est GFR ( Amer) ml/min Est GFR (Non-Af Amer) ml/min BUN/Creatinine Ratio (10-20) Glucose (70-99(Fasting)) mg/dl Lactate 0.9 (0.4-2.0) mmol/L Calcium (8.5-10.1) mg/dl Total Bilirubin (0.2-1.0) mg/dl AST (13-39) U/L ALT (7-52) U/L Alkaline Phosphatase (34-104) U/L Total Protein (6.0-8.3) gm/dl Albumin (3.4-5.0) gm/dl Globulin (2.5-4.0) gm/dl Albumin/Globulin Ratio (0.9-2) Urine Color Yellow Urine Appearance Cloudy A (Clear) Urine pH 7.0 (4.5-7.5) Ur Specific [place] 1.013 (1.000-1.030) Urine Protein 2+ H (Negative) Urine Glucose (UA) Negative (Negative) Urine Ketones Trace H (Negative) Urine Blood 1+ H (Negative) Urine Nitrite Negative (Negative) Urine Bilirubin Negative (Negative) Urine Urobilinogen Negative (Negative) Ur Leukocyte Esterase 1+ H (Negative) Urine WBC (Auto) >30 H (0-5) /hpf Urine RBC (Auto) 10-30 H (0-4) /hpf U Hyaline Cast (Auto) 5-10 H (0-5) /lpf U Epithel Cells (Auto) >30 H (0-5) /lpf Urine Bacteria (Auto) Negative (Negative) SARS-CoV-2, RNA, NAAT (NEGATIVE) Imaging Data Radiologist's Impression: Chest/Abdomen X-ray 10/29/21 16:47 AP CHEST WITH ABDOMINAL SERIES CLINICAL HISTORY: Fever. Covid. FINDINGS: An AP upright chest radiograph is compared to study dated 10/20/2021. A right internal jugular central venous catheter has been removed from previous. The heart is top normal for projection noting atherosclerotic calcification of the thoracic aorta. There are low lung volumes with dependent atelectasis. There are subtle bilateral airspace opacities, greatest at the right lung base. No large pleural effusion or pneumothorax is seen. The skeletal structures are osteopenic. The bony thorax is grossly intact. Supine and erect abdominal radiographs are correlated with abdominal CT dated 10/16/2021. Cholecystectomy clips are noted. There is a nonobstructed abdominal bowel gas pattern. No evidence of intraperitoneal free air is seen. There a left ureteral stent is in place. No calcifications are seen along the course of the stent. There are numerous stones/fragments project over the lower pole of left kidney which measure up to 6 mm. A 3 mm calcification projects over the right kidney. Suture material is seen in the pelvis. The lumbosacral spine and bony pelvis appear intact. IMPRESSION: 1. Low lung volumes with subtle bilateral airspace opacities. Correlate clinically for evidence of a mild infectious/inflammatory pneumonitis. 2. A left ureteral stent is in place. No calcifications are seen along the course of the stent. 3. Numerous stones/fragments project over the lower pole of left kidney. A single calcification projects over the right kidney. ACT 112: Negative or not required by law. Electronically signed by: Caesar Yoon M.D. 10/29/2021 6:58 PM ECG Data Attestation: I personally reviewed and interpreted this ECG as follows: Indication: + abdominal pain Rate (beats per minute): 91 Rhythm: + normal sinus ECG [place]: + Normal ECG Findings: + Other (Limited due to motion artifact); no PVCs MDM Narrative I did evaluate the patient as noted above. She is presenting with vomiting and inability to keep down any fluids over the past 5 days. She also developed a fever and has continued pain to her left flank. IV access was established. I did place an order for continuous cardiac monitoring. The monitor showed normal sinus rhythm at a rate of 89 bpm. I did order and personally review the patient's 12-lead EKG as described above. Interpretation is limited due to motion artifact but no acute ischemia is noted. I did order and personally reviewed the images of the patient's chest and abdominal x-rays as described above. She appears to have bibasilar infiltrates concerning for pneumonia. She has a ureteral stent in place. I did order a urine analysis. There has been significant delay in getting the urine analysis as the patient refuses catheterization. I did order and review the patient's blood work as noted in the electronic medical record. White count is 8.2. Hemoglobin is stable at 8.9. Electrolytes are unremarkable. Creatinine is at baseline at 1.53. Lactate is not elevated. COVID testing is positive. The patient was placed in respiratory isolation. I did treat her with normal saline as well as Zofran IV. I did discuss the test results with the patient. She will be hospitalized for further care and evaluation due to her intractable vomiting. We were finally able to get a urine sample from her. The results were somewhat equivocal with greater than 30 epithelial cells. No bacteria but there were greater than 30 WBCs and 1+ leukocyte esterase. No nitrites. I did treat her empirically with cefepime 2 g IV. Prior cultures did not grow any bacteria. I did discuss case with the hospitalist and casework supervisor. Impression & Plan Intractable vomiting, Complicated UTI (urinary tract infection), Chronic kidney disease, Pneumonia due to 2019 novel coronavirus, Chronic anemia Discharge Plan Visit Data Chief Complaint: Illness Stated Complaint: ILLNESS ED Provider: Drake Lu Discharge Problem: Intractable vomiting, Complicated UTI (urinary tract infection), Chronic kidney disease, Pneumonia due to 2019 novel coronavirus, Chronic anemia Patient Disposition: Being Evaluated by Hospitalist Forms Stand Alone Forms: My [facility] Prescriptions Prescriptions: No Action ondansetron 4 mg tablet,disintegrating 4 mg PO Q8H PRN (Reason: nausea and vomiting) Qty: 10 RF: 0 metoprolol succinate 50 mg tablet extended release 24 hr 50 mg PO QAM RF: 0 Trelegy Ellipta 100-62.5-25 mcg blister with device 1 inh inhalation DAILY PRN (Reason: Shortness Of Breath) RF: 0 metoprolol succinate 25 mg tablet extended release 24 hr 25 mg PO PM RF: 0 albuterol sulfate 90 mcg/actuation Hfa Aerosol Inhaler 2 puff INHALATION Q4H PRN (Reason: Shortness Of Breath) RF: 0 magnesium oxide 400 mg magnesium Tablet 400 mg PO HS RF: 0 atorvastatin [Lipitor] 40 mg Tablet 40 mg PO QPM RF: 0 clopidogrel [Plavix] 75 mg Tablet 75 mg PO QPM RF: 0 pantoprazole [Protonix] 40 mg Tablet,Delayed Release (Dr/Ec) 40 mg PO BID RF: 0 riboflavin (vitamin B2) 400 mg Tablet 400 mg PO QPM RF: 0 cholecalciferol (vitamin D3) [Vitamin D3] 2,000 unit Capsule 2,000 unit PO QAM RF: 0 oxcarbazepine 300 mg tablet 300 mg PO BID RF: 0 acetaminophen [Tylenol Extra Strength] 500 mg Tablet 1,000 mg PO AMHS RF: 0 glipizide [Glucotrol XL] 2.5 mg tablet extended release 24hr 2.5 mg PO PM RF: 0 Referrals Referrals: Lo Chand DO [Primary Care Provider] - [facility] [Non-Staff] -
[2021-10-29] MEDS ORDERED: ACETAMINOPHEN 325 MG TAB PO STA (17:45)
--- NOTE | 2021-10-29 18:59 | XRay Report ---
AP CHEST WITH ABDOMINAL SERIES CLINICAL HISTORY: Fever. Covid. FINDINGS: An AP upright chest radiograph is compared to study dated 10/20/2021. A right internal jugular central venous catheter has been removed from previous. The heart is top normal for projection noting athero sclerotic calcification of the thoracic aorta. There are low lung volumes with dependent atelectasis. There are subtle bilateral airspace opacities, greatest at the right lung base. No large pleural eff usion or pneumothorax is seen. The skeletal structures are osteopenic. The bony thorax is grossly int act. Supine and erect abdominal radiographs are correlated with abdominal CT dated 10/16/2021. Cholecystecto my clips are noted. There is a nonobstructed abdominal bowel gas pattern. No evidence of intraperiton eal free air is seen. There a left ureteral stent is in place. No calcifications are seen along the c ourse of the stent. There are numerous stones/fragments project over the lower pole of left kidney wh ich measure up to 6 mm. A 3 mm calcification projects over the right kidney. Suture material is seen in the pelvis. The lumbosacral spine and bony pelvis appear intact. IMPRESSION: 1. Low lung volumes with subtle bilateral airspace opacities. Correlate clinically for evidence of a mild infectious/inflammatory pneumonitis. 2. A left ureteral stent is in place. No calcifications are seen along the course of the stent. 3. Numerous stones/fragments project over the lower pole of left kidney. A single calcification proje cts over the right kidney. ACT 112: Negative or not required by law. Electronically signed by: Caesar Yoon M.D. 10/29/2021 6:58 PM
[2021-10-29 19:48] LABS: Appearance Urine Cloudy (Clear); Bacteria Urine Automated Negative (Negative); Bilirubin Urine Negative (Negative); Blood Urine 1+ (Negative); Color Urine Yellow; Epithelial Cell Urine Auto >30 /lpf (0-5); Glucose Urine UA Negative (Negative); Ketones Urine Trace (Negative); Leukocyte Esterase Urine 1+ (Negative); Nitrite Urine Negative (Negative); Protein Urine 2+ (Negative); Specific Gravity Urine 1.013 (1.000-1.030); Urobilinogen Urine Negative (Negative); WBC Urine Automated >30 /hpf (0-5)
[2021-10-29] MEDS ORDERED: CEFEPIME 2,000 MG/20 ML VIAL IV STA (20:07)
[2021-10-29] MEDS ORDERED: CONSULT PHARMACY STA (23:05)
[2021-10-30] MEDS ORDERED: ALBUTEROL HFA 8 GM INHALER INH PRN (01:29)
[2021-10-30] MEDS ORDERED: NITROGLYCERIN SL 0.4 MG/TAB TAB SL PRN (01:29)
[2021-10-30] MEDS: SODIUM CHLORIDE 0.9% 1000ML 1,000 ML IV SCH ×2 (01:39→13:08)
--- NOTE | 2021-10-30 01:50 | Urology Consultation ---
Date of Consultation October 30, 2021 Assessment & Plan (1) Complicated UTI (urinary tract infection): Patient has been admitted on the hospitalist service. Patient has been started antibiotics in the form of cefepime. Recommend continuing antibiotics until urine cultures are available. Once culture data is available antibiotics can be tailored based on the results of this Once patient's UTI is adequately treated definitive care of her kidney stones and stent management can be employed. Supervising Physician Co-Signing Physician Notes Agree with plan above. Treat presumed infection. Once patient appropriately treated and several weeks out from hospitalization, can address stone treatment. History of Present Illness Reason for Consultation: Pyelonephritis, urinary tract infection, recent urologic stent Attending Physician: Chris Brice DO History of Present Illness This is a 66-year-old female who was recently mated to [facility] from 10/11/21 through 10/24/2021 during this admission patient was admitted with obstructive pyelonephritis. This required urologic intervention. Dr. Adam performed a cystoscopy with a left retrograde pyelogram and a stent placement. Long stent placement urologic plan was for patient to have outpatient follow-up for definitive management of nephrolithiasis. Patient's records were reviewed and all urine cultures were reviewed. Patient did have no bacterial growth on any of her urine cultures, however urine culture from 10/16/2021 did grew out yeast. The patient reports that when she was discharged home she was not discharged on any antibiotics. The patient notes that she has been having trouble ever since discharge. She notes that she has been having some persistent nausea vomiting along with fever and chills and associated shortness of breath. She does note some urinary frequency. She denies any hematuria or dysuria. She also reports associated left flank pain that radiates somewhat to her abdomen. In addition she notes a poor appetite. When asked about her fevers she said that her highest fever was 100.9. Because of her symptomatology since discharge home she presented to the [facility] emergency department. Today in the emergency department the patient did have labs and imaging which I independently reviewed. A chest and abdominal x-ray series showed subtotal bilateral airspace opacities. A left ureteral stent was noted to be in place with no calcifications along the course of the stent. Numerous kidney stone fragments were noted over the lower left pole of the kidney. A CBC revealed white blood cell count was normal. Her hemoglobin and hematocrit were 8.9 and 31.1. Platelet count was noted to be within the normal range. Chemistry profile showed sodium and potassium were both normal. Her BUN was within the normal range but creatinine was elevated at 1.5. This level of creatinine was consistent with patient's baseline. A urinalysis showed that the urine was cloudy with 1+ blood. It was negative for nitrites but positive for leukocyte esterase. Greater than 30 white blood cells were noted per high-power field and there is no bacteriuria. A COVID test was performed and was noted to be positive. At the time of my interview she was resting comfortably in bed in no distress. Allergies Allergy/AdvReac Type Severity Reaction Status Date / Time salicylates Allergy Severe SHORTNESS Verified 10/29/21 16:28 OF BREATH Iodinated Contrast Media Allergy Intermediate EYES Verified 10/29/21 16:28 SWELLING/Hives amoxicillin [From Augmentin] Allergy Mild Rash Verified 10/29/21 16:28 aspirin Allergy Mild FACIAL Verified 10/29/21 16:28 SWELLING clavulanic acid Allergy Mild Rash Verified 10/29/21 16:28 [From Augmentin] hydromorphone Allergy Mild RASH/ITCHIN Verified 10/29/21 16:28 G fentanyl Allergy itching/felt Verified 10/29/21 16:28 like throat closing meperidine AdvReac Intermediate ITCH Verified 10/29/21 16:28 morphine AdvReac Intermediate ITCH Verified 10/29/21 16:28 tramadol AdvReac Mild itch Verified 10/29/21 16:28 Home Medications Medication Instructions Recorded Confirmed Type atorvastatin 40 mg tablet (Lipitor) 40 mg PO QPM 07/12/18 10/29/21 History clopidogrel 75 mg tablet (Plavix) 75 mg PO QPM 07/12/18 10/29/21 History pantoprazole 40 mg tablet,delayed 40 mg PO BID 07/12/18 10/29/21 History release (Protonix) riboflavin (vitamin B2) 400 mg 400 mg PO QPM 07/12/18 10/29/21 History tablet cholecalciferol (vitamin D3) 50 2,000 unit PO QAM 05/16/19 10/29/21 History mcg (2,000 unit) capsule (Vitamin D3) albuterol sulfate 90 mcg/actuation 2 puff INHALATION Q4H PRN 07/21/19 10/29/21 History aerosol inhaler magnesium oxide 400 mg PO HS 10/05/19 10/29/21 History fluticasone fur. 100 mcg-umeclid 1 inh INHALATION DAILY PRN 12/11/20 10/29/21 History 62.5 mcg-vilant 25 mcg inhalat.powder (Trelegy Ellipta) metoprolol succinate 25 mg 25 mg PO PM tab 12/11/20 10/29/21 History tablet,extended release 24 hr metoprolol succinate 50 mg 50 mg PO QAM 12/11/20 10/29/21 History tablet,extended release 24 hr glipizide 2.5 mg tablet, extended 2.5 mg PO PM 04/29/21 10/29/21 History release 24 hr (Glucotrol XL) ondansetron 4 mg disintegrating 4 mg PO Q8H PRN #10 tab 06/02/21 10/29/21 Rx tablet acetaminophen 500 mg tablet 1,000 mg PO AMHS 10/11/21 10/29/21 History (Tylenol Extra Strength) oxcarbazepine 300 mg tablet 300 mg PO BID 10/11/21 10/29/21 History Patient History Medical History Acute UTI (urinary tract infection) has presently per pt Anxiety Asthma well controlled per pt, rare inh use CHF (congestive heart failure) follows with Dr. Singh Chronic back pain Chronic headaches Chronic renal insufficiency stage 3, following with [facility] nephrology ([place]) Chronic respiratory failure with hypoxia Was on home oxygen in the past but no longer using at this time CKD (chronic kidney disease) COPD (chronic obstructive pulmonary disease) Deep vein thrombosis LLE - COULD NOT RECALL DATE - REPORTS SHE WAS TREATED AT [facility] W/ BLOOD THINNERS Depression Diabetes mellitus, type 2 GERD (gastroesophageal reflux disease) History of colon cancer 2012 S/P BOWEL RESECTION. History of COVID-27 Sep 2020 HTN (hypertension) Hyperlipidemia Mood disorder Morbid obesity with BMI of 40.0-44.9, adult Myocardial Infarction 06/2016--> [facility] -- CARDIAC CATH --> normal coronary anatomy without coronary obstruction but Plavix started per [facility] discharge summary On anticoagulant therapy plavix daily CALI (obstructive sleep apnea) Poor historian Seizure Pt states "i think i had them a long time ago". no other information. No hx of seizures noted in records Sinus tachycardia Follows with cardio Surgical History H/O hand surgery RIGHT History of appendectomy History of bilateral cataract extraction History of blepharoplasty History of cardiac cath 03/2018 - [place] - DENIES STENTS/ANGIOPLASTY - [facility] - FOLLOWS W/ DR. SINGH History of closure of ileostomy History of colectomy due to colon cancer History of colonoscopy History of cystoscopy History of esophageal dilatation History of esophagogastroduodenoscopy (EGD) History of hysterectomy History of kidney surgery at age 9 yrs "something was wrong and had to fix it" History of lithotripsy History of tooth extraction History of total abdominal hysterectomy and bilateral salpingo-oophorectomy Hx of cholecystectomy Family History Other Breast cancer Social History Smoking Status: Never smoker Second Hand Exposure: Yes (in past); Hx Alcohol Use: No Hx Substance Use: No Preferred Language: Romansh Communication Ability: Effective Chemist Enzymes Required: No Beliefs That Will Affect Care: Yarsanism marital status: Current Living Situation: Alone Current Living Situation Comment: Home health Feels Safe at Home: Yes Assistive Devices: Cane and Walker Review of Systems Constitutional: + fever, + chills and + body aches Eyes: no diplopia Ear, Nose, Mouth, Throat: no ear pain Respiratory: no cough Cardiovascular: no chest pain Gastrointestinal: + abdominal pain, + nausea and + vomiting Genitourinary: + urinary frequency, + hematuria and + flank pain (Left-sided); no dysuria Musculoskeletal: + back pain (Left-sided flank pain) Integumentary: no rash Neurologic: no localized weakness Physical Exam Constitutional: well developed, well nourished and + obese; no acute distress Eyes: no conjunctival abnormality ENMT: Ears: no hearing impairment Mouth: no oropharynx abnormality Neck: trachea midline Respiratory: normal respiratory effort; no respiratory distress and no labored breathing Cardiovascular: Rate/Rhythm: regular rate and regular rhythm Gastrointestinal (Abdomen): Abdomen is rotund but soft. There is no rebound tenderness or guarding. There is some slight pain with palpation on the left side. Musculoskeletal: No calf tenderness Skin: no rashes Neurologic: moves all extremities Psychiatric: Orientation: alert and oriented x 3 Genitourinary: + CVA tenderness (Left-sided) Results & Data ([facility]) Vital Signs (Past 12 Hours) Vital Signs Pulse Pulse Resp BP BP Pulse Ox 10/30/21 00:30 83 19 117/85 100 10/29/21 23:01 152/94 H 100 10/29/21 23:00 78 22 168/101 H 100 10/29/21 22:01 72 18 159/76 H 100 10/29/21 21:30 75 24 152/89 H 100 10/29/21 21:00 80 22 134/78 99 10/29/21 20:30 78 20 144/95 H 99 10/29/21 20:00 75 20 142/83 H 100 10/29/21 19:30 82 19 163/103 H 100 10/29/21 19:00 80 19 149/91 H 100 10/29/21 18:30 84 23 154/83 H 99 10/29/21 18:04 88 15 10/29/21 18:00 83 14 149/91 H 100 10/29/21 17:30 88 19 99 10/29/21 17:01 22 137/99 100 10/29/21 17:00 98 H 19 100 10/29/21 16:30 82 18 134/87 100 10/29/21 16:12 91 H 18 100 10/29/21 16:01 110 H 22 137/67 100 PG Care Time/CCT Total # of Minutes Spent Total Time Spent with Patient: Total time spent is greater than 50% in coordination of care (as documented) at patient's floor/unit and/or counseling patient: Coding Level of Care Code 23156 Inpt Consult Level 5 Diagnoses Complicated UTI (urinary tract infection) N39.0
[2021-10-30] MEDS ORDERED: FLUTICASONE FUROATE 100MCG 14 PUFFS/INHALER INH PRN (01:52)
--- NOTE | 2021-10-30 02:27 | History and Physical Report ---
DATE OF ADMISSION: 10/29/2021. CHIEF COMPLAINT: Nausea, vomiting, COVID-19. HISTORY OF PRESENT ILLNESS: This is a 66-year-old female with past medical history significant for type 2 diabetes, COPD, chronic kidney disease stage III, hypertension, bipolar disorder, chronic respiratory failure on home oxygen 2 liters, history of laparoscopic colectomy total with proctectomy and ileostomy and ileoproctostomy in 2010 for colon cancer, who was recently in the hospital for obstructive pyelonephritis, , obstructing 5 mm left vesicoureteral junction stone, status post cystoscopy and stent placement on 10/12/2021, treated with antibiotics, but during the last admission , the patient had acute metabolic encephalopathy, significant respiratory acidosis and transferred to the ICU, broadened antibiotics with cefepime and vancomycin, but vancomycin discontinued after MRSA swab negative. Repeat CT of abdomen and pelvis is showing left nephroureteral stent in place. Repeat cultures were unremarkable and as she was still acidotic and she was intubated on 10/17/2021. On 10/18/2021, she underwent bronchoscopy. On 10/19/2021, the patient was extubated and also the patient seemed to be improved. During the hospital, her kidney function also worsened to creatinine to 3.1, and improved to 1.7 and she got discharged home. The patient says since she went home, she is having a lot of nausea, vomiting, not able to eat anything and also had a fever of 100.9, and abdominal pain, which prompted her to come to the ER today and she was tested positive for COVID at this time and also having continuing UTI. The patient lives alone, ambulates with a walker. Could not eat anything because of nausea, vomiting. Denies any headache. No blurred visions, no earache, no runny nose, no sore throat. Has some cough. No chest pain, no shortness of breath. Complains of severe abdominal pain. Normal bowel and bladder movements. ALLERGIES: SALICYLATES, IODINATED CONTRAST MEDIA, AMOXICILLIN, ASPIRIN, CLAVULANIC ACID, HYDROMORPHONE, FENTANYL, MEPERIDINE, MORPHINE, TRAMADOL. PAST MEDICAL HISTORY: As mentioned above. PAST SURGICAL HISTORY: Breast lesion excision, colonoscopy, EGDs, sigmoidoscopy, laparoscopic colectomy, total proctectomy with ileostomy in July 2011, removal of kidney stones, cataracts, cholecystectomy,, sigmoidoscopy with biopsy, total hysterectomy. MEDICATIONS: The patient is on Tylenol 1000 mg p.o. b.i.d., albuterol 2 puffs inhalation q. 4 hours p.r.n., Lipitor 40 mg p.o. a.m., vitamin D 2000 units p.o. a.m., Plavix 75 mg p.o. a.m., fluticasone/umeclid inhalation daily, glipizide 2.5 mg p.o. p.m., magnesium oxide 400 mg p.o. at bedtime, metoprolol tartrate 50 mg in a.m. and 25 mg in p.m., Zofran 4 mg p.o. q. 8 hours p.r.n., oxcarbazepine 300 mg p.o. b.i.d., Protonix 40 mg p.o. b.i.d., riboflavin 400 mg p.o. p.m. FAMILY HISTORY: Significant for mother had breast cancer, sister has breast cancer, father of colon cancer. SOCIAL HISTORY: , currently lives alone. No smoking, no alcohol, no drug use. REVIEW OF SYSTEMS: As per HPI. Rest of the review of systems is negative. PHYSICAL EXAMINATION: GENERAL: The patient is morbidly obese, not in acute distress. VITAL SIGNS: Temperature 36.4, pulse 78, respiratory rate 22, blood pressure 168/101, oxygen 100% on 2 liters. HEENT: Pupils equal, round and reactive to light. Oral mucosa moist. NECK: No JVD, no neck masses. CARDIOVASCULAR: S1 and S2 heard. Regular rate and rhythm. No murmur, no gallop. RESPIRATORY SYSTEM: Normal AP diameter. No accessory muscle use. No wheezing, no crackles. ABDOMEN: Soft, bowel sounds present, nontender, no distention. CENTRAL NERVOUS SYSTEM: Cranial nerves II through XII are grossly intact, nonfocal. EXTREMITIES: No edema, no erythema. LABORATORY DATA: WBC 8.2, hemoglobin 8.9, hematocrit 31.1, platelets 261. Sodium 143, potassium 3.6, chloride 104, bicarbonate 30, BUN 8, creatinine 1.5, serum glucose 114. Lactate 0.9, calcium 8.7, total bilirubin 0.4, AST 19, ALT 12, alkaline phosphatase 92. Urinalysis, positive for leukocyte esterase. SARS-CoV-2 RNA positive. IMAGING DATA: Chest x-ray and abdominal x-ray, low lung volumes, subtle bilateral airspace opacities, correlate clinically for evidence of mild infectious, inflammatory pneumonitis. A left ureteral stent in place, numerous stones or fragments at left lower pole of the kidney. EKG: Poor quality interpretation, may be adversely affected, undetermined rhythm at a rate of 91. ASSESSMENT AND PLAN: This is a 66-year-old female who was recently in the hospital for pyelonephritis with left obstructive calculus, status post stent placement. Treated with IV antibiotics and also acute metabolic encephalopathy secondary to respiratory acidosis status post intubation. Status post bronchoscopy and did fine and got discharged. Comes because of ongoing nausea, vomiting and found to have a temperature spike and abdominal pain and found to be COVID positive. 1. COVID positive: Having nausea, vomiting, abdominal pain. Fever could be caused by COVID infection. Currently saturating fine on 2 liters, which is at baseline. Does not meet any criteria for remdesivir or steroids. Will follow with supportive care. Will monitor in the hospital. 2. Urinary tract infection: Recent pyelonephritis. UA is still positive. Empirically started on cefepime. Will follow the cultures. Urology was consulted. 3. Nausea and vomiting: Placed on clear liquid diet and gentle fluids. IV antiemetics. If not getting better, consult with GI. 4. History of chronic obstructive pulmonary disease and chronic respiratory failure: On oxygen 2 L. Continue her home inhalers. Currently stable. 5. Chronic kidney disease stage III: Creatinine is 1.5, seems to be around baseline. Will follow the labs. 6. Diabetes: placed on insulin sliding scale. Follow the blood sugars. 7. History of colon cancer: Status post laparoscopic colectomy, total proctectomy and ileostomy, and ileoproctostomy in 2010. 8. Morbid obesity: Needs counseling. 9. Anemia: Hemoglobin of 8.9,. Will follow the labs. 10. Hyperlipidemia: On statin. 11. Hypertension: On metoprolol. Will follow the blood pressure. 12. Deep venous thrombosis prophylaxis: Heparin subcutaneously. DISPOSITION: Closely monitor in the [employer] tele. PT/OT prior to discharge. Social service to help with discharge planning. Job ID: [id number] [facility]
[2021-10-30] MEDS: HEPARIN SOD 5,000 UNIT/0.5 ML VIAL SQ SCH ×3 (05:14→22:05)
[2021-10-30 05:32] LABS: Basophils # (auto) 0.02 K/uL (0-0.2); Basophils % (auto) 0.3 %; Eosinophils % (auto) 1.7 %; Hematocrit (blood only) 28.2 % (37-47); Immature Granulocytes # (auto) 0.03 K/uL (0.00-0.02); Immature Granulocytes % (auto) 0.5 %; Lymphocytes % (auto) 10.1 %; Mean Corpuscular Hemoglobin 29.2 pg (25-34); Mean Corpuscular Hgb Conc 28.4 g/dL (32-36); Mean Corpuscular Volume 102.9 fL (80-100); Mean Platelet Volume 10.4 fL (7.4-10.4); Monocytes # (auto) 1.09 K/uL (0.11-0.59); Monocytes % (auto) 18.4 %; Neutrophils # (auto) 4.08 K/uL (1.4-6.5); Platelet Count 210 K/uL (130-400); RDW Coefficient of Variation 14.6 % (11.5-14.5); RDW Standard Deviation 54.4 fL (36.4-46.3); Red Blood Count 2.74 M/uL (4.2-5.4); White Blood Count 5.92 K/uL (4.8-10.8)
[2021-10-30 05:43] LABS: Creatinine Clr Calc Pharmacy 36.9 ml/min; Est GFR (African American) 41.1 ml/min; Est GFR (Non-African American) 35.4 ml/min; Magnesium 1.4 mg/dl (1.7-2.4); Potassium 3.3 mmol/L (3.5-5.1)
[2021-10-30 07:36] LABS: Estimated Average Glucose 128 mg/dl; Hemoglobin A1C 6.1 % (4.5-5.6)
[2021-10-30] MEDS: INSULIN ASPART PER UNIT SC SCH ×4 (08:10→21:51)
[2021-10-30] MEDS ORDERED: POTASSIUM CHLORIDE CRTAB 20 MEQ TABCR PO STA (08:22)
[2021-10-30] MEDS: OXcarbazepine 150 MG TABLET PO SCH ×2 (09:21→21:55)
[2021-10-30] MEDS: CHOLECALCIFEROL 1,000 UNITS 25 MCG TAB PO SCH (09:21)
[2021-10-30] MEDS: METOPROLOL SUCC 50MG EXT REL TAB PO SCH (09:21)
[2021-10-30] MEDS: MAGNESIUM SULFATE / D5W 1 GM/100 ML BAG IV SCH ×2 (09:22→12:14)
[2021-10-30] MEDS: PANTOprazole 40 MG TAB PO SCH ×2 (09:22→21:38)
[2021-10-30] MEDS: ACETAMINOPHEN 500 MG TAB PO SCH ×2 (09:22→21:35)
--- NOTE | 2021-10-30 20:25 | Electrocardiogram Report ---
Test Reason : Blood Pressure : / mmHG Vent. Rate : 091 BPM Atrial Rate : 340 BPM P-R Int : 188 ms QRS Dur : 044 ms QT Int : 300 ms P-R-T Axes : 054 048 079 degrees QTc Int : 369 ms Poor data quality, interpretation may be adversely affected Possible Sinus rhythm with sinus arrhythmia Low voltage QRS Cannot rule out Anteroseptal infarct , age undetermined Abnormal ECG When compared with ECG of 11-OCT-2021 16:59, Minimal criteria for Anteroseptal infarct are now Present Criteria for Inferior infarct are no longer Present Nonspecific T wave abnormality now evident in Anterior leads Confirmed by Kalia Puente ([id number]) on 10/30/2021 8:25:10 PM Referred By: Lo Chand Confirmed By:Kalia Puente
[2021-10-30] MEDS ORDERED: NON-FORMULARY MEDICATION (Riboflavin (Vitamin B2) 400 mg Tablet) PO SCH (21:00)
[2021-10-30] MEDS: CEFEPIME 2,000 MG in SYRINGE 0 ML IV SCH (21:25)
[2021-10-30] MEDS: ATORVASTATIN 40 MG TAB PO SCH (21:36)
[2021-10-30] MEDS: CLOPIDOGREL BISULFATE 75 MG TAB PO SCH (21:37)
[2021-10-30] MEDS: MAGNESIUM OXIDE 400 MG TAB PO SCH (21:37)
[2021-10-30] MEDS: METOPROLOL SUCC 25MG EXT REL TAB PO SCH (21:37)
[2021-10-31] MEDS: SODIUM CHLORIDE 0.9% 1000ML 1,000 ML IV SCH ×2 (02:12→13:05)
[2021-10-31] MEDS: HEPARIN SOD 5,000 UNIT/0.5 ML VIAL SQ SCH ×3 (05:56→21:48)
[2021-10-31] MEDS ORDERED: oxyCODONE/ACETAMINOPHEN 5mg/325mg TAB PO PRN (06:08)
[2021-10-31 07:44] LABS: Basophils # (auto) 0.02 K/uL (0-0.2); Basophils % (auto) 0.4 %; Eosinophils % (auto) 6.3 %; Hematocrit (blood only) 29.6 % (37-47); Hemoglobin 8.4 g/dL (12.0-16.0); Immature Granulocytes # (auto) 0.03 K/uL (0.00-0.02); Immature Granulocytes % (auto) 0.6 %; Lymphocytes # (auto) 0.88 K/uL (1.2-3.4); Lymphocytes % (auto) 18.6 %; Mean Corpuscular Hemoglobin 29.1 pg (25-34); Mean Corpuscular Hgb Conc 28.4 g/dL (32-36); Mean Corpuscular Volume 102.4 fL (80-100); Mean Platelet Volume 10.6 fL (7.4-10.4); Monocytes # (auto) 0.74 K/uL (0.11-0.59); Monocytes % (auto) 15.6 %; Neutrophils # (auto) 2.76 K/uL (1.4-6.5); Neutrophils % (auto) 58.5 %; Platelet Count 203 K/uL (130-400); RDW Coefficient of Variation 14.3 % (11.5-14.5); RDW Standard Deviation 53.7 fL (36.4-46.3); Red Blood Count 2.89 M/uL (4.2-5.4); White Blood Count 4.73 K/uL (4.8-10.8)
[2021-10-31 07:58] LABS: BUN Creatinine Ratio 6.2 (10-20); Calcium 8.3 mg/dl (8.5-10.1); Est GFR (African American) 42.4 ml/min; Est GFR (Non-African American) 36.6 ml/min; Magnesium 1.9 mg/dl (1.7-2.4); Potassium 3.2 mmol/L (3.5-5.1)
[2021-10-31] MEDS: INSULIN ASPART PER UNIT SC SCH ×4 (09:04→21:58)
[2021-10-31] MEDS: OXcarbazepine 150 MG TABLET PO SCH ×2 (09:06→20:45)
[2021-10-31] MEDS: ACETAMINOPHEN 500 MG TAB PO SCH (09:06)
[2021-10-31] MEDS: CHOLECALCIFEROL 1,000 UNITS 25 MCG TAB PO SCH (09:07)
[2021-10-31] MEDS: PANTOprazole 40 MG TAB PO SCH ×2 (09:07→20:44)
[2021-10-31] MEDS: METOPROLOL SUCC 50MG EXT REL TAB PO SCH (09:07)
[2021-10-31] MEDS ORDERED: POTASSIUM CHLORIDE CRTAB 20 MEQ TABCR PO STA (09:18)
[2021-10-31] MEDS ORDERED: PHARMACY GLYCEMIC MGMT CONSULT PRN (09:23)
[2021-10-31] MEDS: traMADol HCL 50 MG TABLET PO PRN ×2 (09:51→23:38)
[2021-10-31] MEDS: dexAMETHasone 6 MG in SYRINGE 0 ML IV SCH (10:55)
--- NOTE | 2021-10-31 11:28 | Pharmacy Report ---
Pharmacy Glycemic Short Note 2 - Date of Service October 31, 2021 - Glycemic Short BSG Results (Last 24 hours): 10/30/21 10/30/21 10/30/21 12:56 17:40 21:47 Glucose POC Glucose 120 H 89 91 10/31/21 10/31/21 07:03 07:53 Glucose 94 POC Glucose 87 OUTPATIENT ANTIDIABETIC REGIMEN: * Glipizide ER 2.5mg PO qPM * HbA1c: 6.1% (10/30/21) ASSESSMENT: * Ms Nesbitt is a 66yo diabetic female admitted with COVID, UTI. * BSGs have been below goal since admission, but pt was started on IV dexamethasone this morning, which is likely to cause steroid-induced hyperglycemia. * Novolog parameters tightened this morning to provide more coverage throughout the day. * If BSGs begin to rise, will add NPH to be administered with IV steroids daily. Did not add immediately d/t patient's current BSGs and A1c. * Patient is ordered a diabetic, clear liquid diet. PLAN FOR INPATIENT GLYCEMIC CONTROL: * Hold outpatient oral diabetes medications * Basal insulin * none at this time * Bolus insulin * NovoLog per scale ACHS or Q6hrs while NPO * Goal Range: Low 110 mg/dL - High 140 mg/dL * Correction Factor: 25 mg/dL/unit * Nutritional / Prandial insulin per carb ratio of 1 unit per 6 grams CHO consumed PLAN FOR DISCHARGE: * A1c: 6.1% * This indicates excellent glycemic control as an outpt. If patient reports having episodes of hypoglycemia, may consider switching to a different oral agent, as glipizide may predispose pt to hypoglycemia in the setting of impaired renal function.
--- NOTE | 2021-10-31 14:42 | Hospitalist Progress Note ---
Date of Service October 31, 2021 Assessment & Plan (1) Pneumonia due to 2019 novel coronavirus: Plan: ASSESSMENT AND PLAN: This is a 66-year-old female who was recently in the hospital for pyelonephritis with left obstructive calculus, status post stent placement. Treated with IV antibiotics and also acute metabolic encephalopathy secondary to respiratory acidosis status post intubation. Status post bronchoscopy and did fine and got discharged. Comes because of ongoing nausea, vomiting and found to have a temperature spike and abdominal pain and found to be COVID positive. 1. COVID 19 pneumonia Chronic hypoxic respiratory failure Currently on 2 L of O2 which is her baseline, saturating 98 to 99% Chest x-ray showing bilateral infiltrates consistent with viral pneumonia Patient reporting mild dyspnea today Given overall clinical presentation, will start Decadron 6 mg IV daily today Glycemic control consulted Continue incentive spirometry, heparin for DVT prophylaxis 2. Rule out urinary tract infection History of recent left ureteral stent placement, left nephrolithiasis Urine culture: Negative so far Continue empiric cefepime day #2 Monitor closely Urologist consulted 3. Nausea and vomiting: Resolved Diet advance 4. History of chronic obstructive pulmonary disease and chronic respiratory failure: On oxygen 2 L. Continue her home inhalers. 5. Chronic kidney disease stage III: Creatinine is 1.5, seems to be around baseline. Will follow the labs. Creatinine at baseline Potassium 3.2, replaced 6. Diabetes: Insulin sliding scale Pharmacy glycemic control consulted 7. History of colon cancer: Status post laparoscopic colectomy, total proctectomy and ileostomy, and ileoproctostomy in 2010. 8. Morbid obesity: Needs counseling. 9. Anemia: Hemoglobin 8.4, baseline 10. Hyperlipidemia: On statin. 11. Hypertension: On metoprolol. 12. Deep venous thrombosis prophylaxis: Heparin subcutaneously. DISPOSITION: Pending Will need PT and OT evaluation plan of care discussed with patient in detail and at length all questions answered she is understanding, agreeable, comfortable with the plan of care Admission and Anticipated Discharge Date Admission Date: October 29, 2021 Subjective Follow-up for COVID-19 pneumonia, chronic hypoxic respiratory failure, Left-sided abdominal pain, recent left ureteral stone placement, etc. Seen sitting up in bed, on 2 L of oxygen via nasal cannula Comfortable, not in distress States she has mild dyspnea, intermittent dry cough Having significant left CVA pain, but no urinary symptoms, no dysuria, hematuria Appetite is good No other symptoms Review of Systems Review of Systems: all noted and negative except for above Physical Exam Physical Exam: General- oriented x 3, not in distress, speaks in sentences with no effort or accessory muscle use Eyes- anicteric Neck- no JVD Lungs-mild rales at the bases, no wheezing, good air entry bilaterally Heart- normal rate, regular rhythm; no murmurs Abdomen- normal bowel sounds, nondistended, soft, mild left CVA tenderness Extremities- no pretibial edema, no calf tenderness Neuro- alert, oriented x 3; no gross focal neurologic deficits Skin- warm & dry Results & Data Results & Data ([facility]) Vital Signs (Past 12 Hours) Vital Signs Temp Pulse Pulse Resp BP Pulse Ox 10/31/21 11:41 36.8 C 99 H 24 134/81 99 10/31/21 08:02 36.8 C 99 H 24 154/88 H 96 10/31/21 07:20 72 all noted and reviewed including below
[2021-10-31] MEDS: HYDROCODONE/ACETAMOPHEN 5/325MG TAB PO PRN (17:07)
[2021-10-31] MEDS: CLOPIDOGREL BISULFATE 75 MG TAB PO SCH (20:46)
[2021-10-31] MEDS: MAGNESIUM OXIDE 400 MG TAB PO SCH (20:46)
[2021-10-31] MEDS: CEFEPIME 2,000 MG in SYRINGE 0 ML IV SCH (20:46)
[2021-10-31] MEDS: ATORVASTATIN 40 MG TAB PO SCH (20:46)
[2021-10-31] MEDS: METOPROLOL SUCC 25MG EXT REL TAB PO SCH (20:47)
[2021-11-01] MEDS: ONDANSETRON INJ 2 MG/ML 2 ML VIAL IV PRN ×2 (01:27→09:32)
[2021-11-01] MEDS: SODIUM CHLORIDE 0.9% 1000ML 1,000 ML IV SCH (01:36)
[2021-11-01] MEDS: HYDROCODONE/ACETAMOPHEN 5/325MG TAB PO PRN ×3 (03:38→21:18)
[2021-11-01] MEDS: HEPARIN SOD 5,000 UNIT/0.5 ML VIAL SQ SCH (05:14)
[2021-11-01 07:55] LABS: Hematocrit (blood only) 26.9 % (37-47); Hemoglobin 7.9 g/dL (12.0-16.0); Mean Corpuscular Hemoglobin 29.6 pg (25-34); Mean Corpuscular Hgb Conc 29.4 g/dL (32-36); Mean Corpuscular Volume 100.7 fL (80-100); Platelet Count 235 K/uL (130-400); RDW Coefficient of Variation 14.3 % (11.5-14.5); RDW Standard Deviation 52.8 fL (36.4-46.3); Red Blood Count 2.67 M/uL (4.2-5.4); White Blood Count 5.61 K/uL (4.8-10.8)
[2021-11-01 08:04] LABS: BUN Creatinine Ratio 7.5 (10-20); Calcium 8.6 mg/dl (8.5-10.1); Creatinine Clr Calc Pharmacy 41.5 ml/min; Est GFR (African American) 47.5 ml/min; Magnesium 1.6 mg/dl (1.7-2.4); Potassium 3.4 mmol/L (3.5-5.1)
[2021-11-01 08:21] LABS: Basophils # (auto) 0.02 K/uL (0-0.2); Basophils % (auto) 0.4 %; Eosinophils # (auto) 0.09 K/uL (0-0.5); Eosinophils % (auto) 1.6 %; Lymphocytes # (auto) 1.46 K/uL (1.2-3.4); Monocytes # (auto) 0.67 K/uL (0.11-0.59); Monocytes % (auto) 11.9 %; Neutrophils # (auto) 3.37 K/uL (1.4-6.5); Neutrophils % (auto) 60.1 %; RBC Morphology Unremarkable
[2021-11-01] MEDS: dexAMETHasone 6 MG in SYRINGE 0 ML IV SCH (09:23)
[2021-11-01] MEDS: INSULIN ASPART PER UNIT SC SCH ×4 (09:23→21:03)
[2021-11-01] MEDS: OXcarbazepine 150 MG TABLET PO SCH ×2 (09:23→20:44)
[2021-11-01] MEDS: METOPROLOL SUCC 50MG EXT REL TAB PO SCH (09:24)
[2021-11-01] MEDS: PANTOprazole 40 MG TAB PO SCH ×2 (09:24→20:44)
[2021-11-01] MEDS: CHOLECALCIFEROL 1,000 UNITS 25 MCG TAB PO SCH (09:24)
[2021-11-01] MEDS ORDERED: POTASSIUM CHLORIDE CRTAB 20 MEQ TABCR PO ONE (10:55)
--- NOTE | 2021-11-01 10:57 | Hospitalist Progress Note ---
Date of Service November 01, 2021 Assessment & Plan (1) Pneumonia due to 2019 novel coronavirus: Plan: ASSESSMENT AND PLAN: This is a 66-year-old female who was recently in the hospital for pyelonephritis with left obstructive calculus, status post stent placement. Treated with IV antibiotics and also acute metabolic encephalopathy secondary to respiratory acidosis status post intubation. Status post bronchoscopy and did fine and got discharged. Comes because of ongoing nausea, vomiting and found to have a temperature spike and abdominal pain and found to be COVID positive. 1. COVID 19 pneumonia Chronic hypoxic respiratory failure Currently on 2 L of O2 which is her baseline, saturating 98 to 99% Chest x-ray showing bilateral infiltrates consistent with viral pneumonia Respiratory status about the same Continue Decadron 6 mg IV day 2 Glycemic control consulted Continue incentive spirometry, heparin for DVT prophylaxis 2. Rule out urinary tract infection History of recent left ureteral stent placement, left nephrolithiasis Urine culture: Negative so far Continue empiric cefepime day #3 Monitor closely Requested urology reevaluation, appreciate the input 3. Nausea and vomiting: Resolved Diet advanced Hematochezia With left lower quadrant pain History of ileocolonic anastomosis, gastroesophageal valve flap based on colonoscopy and EGD in 2019 History of colon cancer, Status post laparoscopic colectomy, total proctectomy and ileostomy, and ileoproctostomy in 2010. Hemoglobin stable overall Will monitor hemoglobin Consult GI 4. History of chronic obstructive pulmonary disease and chronic respiratory failure: On oxygen 2 L. Continue her home inhalers. 5. Chronic kidney disease stage III: Creatinine is 1.5 Creatinine at baseline Potassium and magnesium low, repletion ongoing 6. Diabetes: Insulin sliding scale Pharmacy glycemic control consulted 7. History of colon cancer: Status post laparoscopic colectomy, total proctectomy and ileostomy, and ileoproctostomy in 2010. Per above 8. Morbid obesity: Needs counseling. 9. Anemia: Hemoglobin 8.9, now 7.9 Possible GI bleed Management per above Hold heparin 10. Hyperlipidemia: On statin. 11. Hypertension: On metoprolol. 12. Deep venous thrombosis prophylaxis: Heparin subcutaneously---> hold for now DISPOSITION: Pending Will need PT and OT evaluation plan of care discussed with patient in detail and at length all questions answered she is understanding, agreeable, comfortable with the plan of care Admission and Anticipated Discharge Date Admission Date: October 29, 2021 Subjective Follow-up for Abdominal pain, status post left ureteral stent placement, COVID infection, etc. Seen resting in bed on 2 L of oxygen via nasal cannula Not in distress seems uncomfortable States she is having left CVA pain/tenderness but no hematuria or dysuria, fevers or chills Also reports left lower quadrant pain, had hematochezia twice, no nausea or vomiting States breathing is about the same, occasional cough No chest pain, leg pain No other symptoms Review of Systems Review of Systems: all noted and negative except for above Physical Exam Physical Exam: General- oriented x 3, not in distress, speaks in sentences with no effort or accessory muscle use Eyes- anicteric Neck- no JVD Lungs- clear breath sounds bilaterally, no rales/wheezes Heart- normal rate, regular rhythm; no murmurs Abdomen- normal bowel sounds, nondistended, soft, positive moderate CVA tenderness Positive mild left lower quadrant tenderness Extremities- no pretibial edema, no calf tenderness Neuro- alert, oriented x 3; no gross focal neurologic deficits Skin- warm & dry Results & Data Results & Data ([facility]) Vital Signs (Past 12 Hours) Vital Signs Temp Pulse Pulse Resp BP Pulse Ox 11/01/21 07:39 36.8 C 74 16 118/71 95 11/01/21 07:15 72 11/01/21 03:59 36.9 C 81 20 101/65 96 all noted and reviewed including below
--- NOTE | 2021-11-01 12:42 | Urology Progress Note ---
Date of Service November 01, 2021 Assessment & Plan (1) CKD (chronic kidney disease), stage III: (2) Kidney stone: (3) Renal colic: Plan: We reviewed her symptoms and nephrolithiasis. Overall I think her left-sided flank pain reflects normal stent pain. It sounds as though this is well managed with current medications. If there is any concern or the pain changes, I would recommend reassessing stent position with KUB. Her left kidney should be draining well with the stent in place, and her lack of fevers, reassuring vital signs and lab work suggest there is no persistent obstructed infection. We discussed that we would not plan to perform any further stone intervention until she has recovered from her COVID/pneumonia, and likely until the GI bleed is further worked up. Plan: Maintain current ureteral stent Pain control as needed for stent pain (recommend Tylenol, Pyridium, tamsulosin) Monitor for changes in urinary symptoms If concern for stent migration, could get KUB to reassess position Unless her condition changes, we will plan to hold off on intervention for the stones until she has recovered from COVID and pneumonia. We will plan to coordinate this as an outpatient. Urology will sign off for now, please call with any questions or concerns. Admission and Anticipated Discharge Date Admission Date: October 29, 2021 Subjective I conducted a telephone interview with the patient to review her urinary symptoms. She reports that she is having intermittent left-sided flank pain, which has been going on since the time of stent placement on 10/12. She denies any fevers or chills. Denies any nausea or vomiting. She reports that she has been having some blood in the stool recently, was to be evaluated for that. She denies any urinary frequency or dysuria. She feels like she is emptying her bladder well. Review of Systems Constitutional: No fevers or chills Gastrointestinal: Blood in the stool Genitourinary: No dysuria, intermittent flank pain Physical Exam Physical Exam: Physical exam not performed due to telephone nature of our visit. Results & Data ([facility]) Vital Signs (Past 12 Hours) Vital Signs Temp Pulse Pulse Resp BP Pulse Ox 11/01/21 12:09 37.0 C 76 16 136/87 95 11/01/21 07:39 36.8 C 74 16 118/71 95 11/01/21 07:15 72 11/01/21 03:59 36.9 C 81 20 101/65 96 Laboratory Results Labs reviewed: CBC with no leukocytosis (5.61), anemia (hemoglobin 7.9), normal platelets (235). BMP with normal sodium, hypokalemia (3.4), creatinine 1.33 which is good for her. Urine culture from 10/29/2021 with multiple organisms present, moderate counts, likely skin agnes. PG Care Time/CCT Total # of Minutes Spent Total Time Spent with Patient: Total time spent is greater than 50% in coordination of care (as documented) at patient's floor/unit and/or counseling patient: Coding Level of Care Code 53633 Subseq Hosp Care Lvl 1 Diagnoses CKD (chronic kidney disease), stage III N18.30 Kidney stone N20.0 Renal colic N23
[2021-11-01] MEDS: MAGNESIUM OXIDE 400 MG TAB PO SCH ×3 (12:58→20:41)
--- NOTE | 2021-11-01 13:30 | Gastrointestinal Consultation ---
Date of Consultation November 01, 2021 Assessment & Plan (1) Hematochezia: possible hemorrhoidal bleeding vs. PUD vs. enteritis/inflammation at anastomosis or other cause, hgb is stable, on treatment for covid pneumonia with resp failure. recs: --protonix 40 mg BID --supportive care, trend H/H daily --can consider elective endoscopy as an outpatient to further evaluate if needed Thank you for allowing me to participate in the care of this patient History of Present Illness Attending Physician: Luis A Camejo MD History of Present Illness 66 yo female with hx DM2, COPD, CKD3, lap colectomy with with proctectomy and ileostomy and ileoproctostomy in 2010 for colon cancer here with covid pneumonia and respiratory failure. GI consulted for hematochezia. Hgb has been relatively stable at recent baseline despite the hematochezia, BUN wnl. Just diagnosed with covid pneumonia on admission few days ago. VSS currently. labs reviewed. Allergies Allergy/AdvReac Type Severity Reaction Status Date / Time salicylates Allergy Severe SHORTNESS Verified 10/29/21 16:28 OF BREATH Iodinated Contrast Media Allergy Intermediate EYES Verified 10/29/21 16:28 SWELLING/Hives amoxicillin [From Augmentin] Allergy Mild Rash Verified 10/29/21 16:28 aspirin Allergy Mild FACIAL Verified 10/29/21 16:28 SWELLING clavulanic acid Allergy Mild Rash Verified 10/29/21 16:28 [From Augmentin] hydromorphone Allergy Mild RASH/ITCHIN Verified 10/29/21 16:28 G fentanyl Allergy itching/felt Verified 10/29/21 16:28 like throat closing meperidine AdvReac Intermediate ITCH Verified 10/29/21 16:28 morphine AdvReac Intermediate ITCH Verified 10/29/21 16:28 tramadol AdvReac Mild itch Verified 10/29/21 16:28 Home Medications Medication Instructions Recorded Confirmed Type atorvastatin 40 mg tablet (Lipitor) 40 mg PO QPM 07/12/18 10/29/21 History clopidogrel 75 mg tablet (Plavix) 75 mg PO QPM 07/12/18 10/29/21 History pantoprazole 40 mg tablet,delayed 40 mg PO BID 07/12/18 10/29/21 History release (Protonix) riboflavin (vitamin B2) 400 mg 400 mg PO QPM 07/12/18 10/29/21 History tablet cholecalciferol (vitamin D3) 50 2,000 unit PO QAM 05/16/19 10/29/21 History mcg (2,000 unit) capsule (Vitamin D3) albuterol sulfate 90 mcg/actuation 2 puff INHALATION Q4H PRN 07/21/19 10/29/21 History aerosol inhaler magnesium oxide 400 mg PO HS 10/05/19 10/29/21 History fluticasone fur. 100 mcg-umeclid 1 inh INHALATION DAILY PRN 12/11/20 10/29/21 History 62.5 mcg-vilant 25 mcg inhalat.powder (Trelegy Ellipta) metoprolol succinate 25 mg 25 mg PO PM tab 12/11/20 10/29/21 History tablet,extended release 24 hr metoprolol succinate 50 mg 50 mg PO QAM 12/11/20 10/29/21 History tablet,extended release 24 hr glipizide 2.5 mg tablet, extended 2.5 mg PO PM 04/29/21 10/29/21 History release 24 hr (Glucotrol XL) ondansetron 4 mg disintegrating 4 mg PO Q8H PRN #10 tab 06/02/21 10/29/21 Rx tablet acetaminophen 500 mg tablet 1,000 mg PO AMHS 10/11/21 10/29/21 History (Tylenol Extra Strength) oxcarbazepine 300 mg tablet 300 mg PO BID 10/11/21 10/29/21 History Patient History Medical History Acute UTI (urinary tract infection) has presently per pt Anxiety Asthma well controlled per pt, rare inh use CHF (congestive heart failure) follows with Dr. Singh Chronic back pain Chronic headaches Chronic renal insufficiency stage 3, following with [facility] nephrology ([place]) Chronic respiratory failure with hypoxia Was on home oxygen in the past but no longer using at this time CKD (chronic kidney disease) COPD (chronic obstructive pulmonary disease) Deep vein thrombosis LLE - COULD NOT RECALL DATE - REPORTS SHE WAS TREATED AT [facility] W/ BLOOD THINNERS Depression Diabetes mellitus, type 2 GERD (gastroesophageal reflux disease) History of colon cancer 2012 S/P BOWEL RESECTION. History of COVID-27 Sep 2020 HTN (hypertension) Hyperlipidemia Mood disorder Morbid obesity with BMI of 40.0-44.9, adult Myocardial Infarction 06/2016--> [facility] -- CARDIAC CATH --> normal coronary anatomy without coronary obstruction but Plavix started per [facility] discharge summary On anticoagulant therapy plavix daily CALI (obstructive sleep apnea) Poor historian Seizure Pt states "i think i had them a long time ago". no other information. No hx of seizures noted in records Sinus tachycardia Follows with cardio Surgical History H/O hand surgery RIGHT History of appendectomy History of bilateral cataract extraction History of blepharoplasty History of cardiac cath 03/2018 - [place] - DENIES STENTS/ANGIOPLASTY - [facility] - FOLLOWS W/ DR. SINGH History of closure of ileostomy History of colectomy due to colon cancer History of colonoscopy History of cystoscopy History of esophageal dilatation History of esophagogastroduodenoscopy (EGD) History of hysterectomy History of kidney surgery at age 9 yrs "something was wrong and had to fix it" History of lithotripsy History of tooth extraction History of total abdominal hysterectomy and bilateral salpingo-oophorectomy Hx of cholecystectomy Family History Other Breast cancer Social History Smoking Status: Never smoker Second Hand Exposure: No; Hx Alcohol Use: No Hx Substance Use: No Preferred Language: Slovak Communication Ability: Effective Licensed Guide Required: No Beliefs That Will Affect Care: None marital status: Current Living Situation: Alone Current Living Situation Comment: [place] [facility] Feels Safe at Home: Yes Assistive Devices: Walker Review of Systems Constitutional: no fever, no chills and no weight loss Eyes: as per Subjective / HPI Ear, Nose, Mouth, Throat: as per Subjective / HPI Respiratory: no dyspnea and no dyspnea on exertion Cardiovascular: no chest pain and no palpitations Gastrointestinal: as per Subjective / HPI Musculoskeletal: no joint pain and no swelling Integumentary: no rash and no lesions Neurologic: no numbness and no paresthesia Psychiatric: no depression and no anxiety Endocrine: no fatigue Hematologic / Lymphatic: no easy bleeding and no easy bruising Results & Data ([facility]) Vital Signs (Past 12 Hours) Vital Signs Temp Pulse Pulse Resp BP Pulse Ox 11/01/21 12:09 37.0 C 76 16 136/87 95 11/01/21 07:39 36.8 C 74 16 118/71 95 11/01/21 07:15 72 11/01/21 03:59 36.9 C 81 20 101/65 96 PG Care Time/CCT Total # of Minutes Spent Total Time Spent with Patient: Total time spent is greater than 50% in coordination of care (as documented) at patient's floor/unit and/or counseling patient: Coding Level of Care Code None Diagnoses Hematochezia K92.1
[2021-11-01 14:57] LABS: Hematocrit (blood only) 28.8 % (37-47); Hemoglobin 8.4 g/dL (12.0-16.0)
[2021-11-01] MEDS: CEFEPIME 2,000 MG in SYRINGE 0 ML IV SCH (19:47)
[2021-11-01] MEDS: ATORVASTATIN 40 MG TAB PO SCH (20:42)
[2021-11-01] MEDS: METOPROLOL SUCC 25MG EXT REL TAB PO SCH (20:43)
[2021-11-01] MEDS: traMADol HCL 50 MG TABLET PO PRN (22:54)
[2021-11-02 07:36] LABS: Basophils # (auto) 0.03 K/uL (0-0.2); Basophils % (auto) 0.5 %; Eosinophils # (auto) 0.12 K/uL (0-0.5); Eosinophils % (auto) 2.1 %; Hematocrit (blood only) 29.3 % (37-47); Hemoglobin 8.4 g/dL (12.0-16.0); Immature Granulocytes # (auto) 0.02 K/uL (0.00-0.02); Immature Granulocytes % (auto) 0.3 %; Lymphocytes # (auto) 1.66 K/uL (1.2-3.4); Lymphocytes % (auto) 28.8 %; Mean Corpuscular Hemoglobin 28.9 pg (25-34); Mean Corpuscular Hgb Conc 28.7 g/dL (32-36); Mean Corpuscular Volume 100.7 fL (80-100); Mean Platelet Volume 10.6 fL (7.4-10.4); Monocytes # (auto) 0.62 K/uL (0.11-0.59); Monocytes % (auto) 10.7 %; Neutrophils # (auto) 3.32 K/uL (1.4-6.5); Neutrophils % (auto) 57.6 %; Platelet Count 233 K/uL (130-400); RDW Coefficient of Variation 14.2 % (11.5-14.5); RDW Standard Deviation 52.4 fL (36.4-46.3); Red Blood Count 2.91 M/uL (4.2-5.4); White Blood Count 5.77 K/uL (4.8-10.8)
[2021-11-02 07:37] LABS: BUN Creatinine Ratio 7.9 (10-20); Calcium 8.8 mg/dl (8.5-10.1); Est GFR (African American) 40.7 ml/min; Est GFR (Non-African American) 35.1 ml/min; Magnesium 1.5 mg/dl (1.7-2.4); Potassium 3.6 mmol/L (3.5-5.1)
[2021-11-02] MEDS: INSULIN ASPART PER UNIT SC SCH ×4 (09:14→19:56)
[2021-11-02] MEDS: CHOLECALCIFEROL 1,000 UNITS 25 MCG TAB PO SCH (09:42)
[2021-11-02] MEDS: PANTOprazole 40 MG TAB PO SCH ×2 (09:43→20:00)
[2021-11-02] MEDS: METOPROLOL SUCC 50MG EXT REL TAB PO SCH (09:43)
[2021-11-02] MEDS: MAGNESIUM CHLORIDE 64MG DELAYED REL TAB PO SCH ×2 (09:43→19:59)
[2021-11-02] MEDS: OXcarbazepine 150 MG TABLET PO SCH ×2 (09:43→20:00)
--- NOTE | 2021-11-02 10:07 | Gastroenterology Progress Note ---
Date of Service November 02, 2021 Assessment & Plan (1) Hematochezia: (2) Pneumonia due to 2019 novel coronavirus: (3) Complicated UTI (urinary tract infection): Plan: Pt is a 66 yo female w hx of colon ca s/p proctectomy, ileostomy, ileoproctostomy in 2010, admitted w COVID pneumonia, pyelonephritis. She is being followed for hematochezia. Last rectal bleeding 2 days ago, she is having soft brown stools today. Tolerating solid meals, no abd pain. Blood ct stable. Monitor blood ct and for further s/s of GI bleeding. Will sign off at this time but pls recall prn. She should continue with her routine colon ca screening colonoscopy in outpt setting Admission and Anticipated Discharge Date Admission Date: October 29, 2021 Supervising Physician Co-Signing Physician Notes I have seen and examined the patient. Patient is covid + - complaints of mild cough, abdominal exam is benign No signs of overt gi bleeding. Labs reviewed Agree with further plan of care as below. Subjective Pt reports mild nausea with breakfast today, no vomiting. No abd pain. Had BM w brown stools, no more rectal bleeding x 2 days now. Review of Systems Review of Systems: All systems reviewed & are unremarkable except as noted in HPI & below Physical Exam Constitutional: WD/WN, vitals as above well groomed, cooperative and c omfortable Eyes: PERRL, conjunctivae normal, anicteric sclerae ENMT: external ear and nose normal, oropharynx normal Respiratory: normal respiratory effort, lungs clear to auscultation Cardiovascular: RRR, no murmur, no edema Gastrointestinal (Abdomen): normal bowel sounds, soft, nontender, no hepatosplenomegaly Skin: no rashes, warm and dry no jaundice Psychiatric: A+Ox3, euthymic affect Lymphatic: no lymphedema Results & Data ([facility]) Vital Signs (Past 12 Hours) Vital Signs Temp Pulse Pulse Resp BP BP Pulse Ox 11/02/21 07:33 36.6 C 73 20 116/74 98 11/02/21 07:24 59 L 11/02/21 04:23 36.8 C 75 18 118/74 93 11/01/21 23:48 37.0 C 85 18 128/84 91 11/01/21 22:19 82
[2021-11-02] MEDS: dexAMETHasone 6 MG in SYRINGE 0 ML IV SCH (11:12)
[2021-11-02] MEDS: ONDANSETRON INJ 2 MG/ML 2 ML VIAL IV PRN ×2 (11:12→18:06)
[2021-11-02] MEDS: MAGNESIUM SULFATE / D5W 1 GM/100 ML BAG IV SCH ×2 (11:18→13:35)
--- NOTE | 2021-11-02 12:16 | Pharmacy Report ---
Pharmacy Glycemic Short Note 2 - Date of Service November 02, 2021 - Glycemic Short BSG Results (Last 24 hours): 11/01/21 11/01/21 11/02/21 16:35 19:44 06:55 Glucose 84 POC Glucose 126 H 111 H 11/02/21 11/02/21 07:33 11:31 Glucose POC Glucose 95 127 H OUTPATIENT ANTIDIABETIC REGIMEN: * Glipizide ER 2.5mg PO qPM * HbA1c: 6.1% (10/30/21) ASSESSMENT: 11/02/21: * Pt has been requiring less than 10 units of insulin per day. She hasn't required any basal insulin. * She is still receiving IV dexamethasone and appears to be tolerating her diet. * No changes required at this time. 10/31 * Ms Nesbitt is a 66yo diabetic female admitted with COVID, UTI. * BSGs have been below goal since admission, but pt was started on IV dexamethasone this morning, which is likely to cause steroid-induced hyperglycemia. * Novolog parameters tightened this morning to provide more coverage throughout the day. * If BSGs begin to rise, will add NPH to be administered with IV steroids daily. Did not add immediately d/t patient's current BSGs and A1c. * Patient is ordered a diabetic, clear liquid diet. PLAN FOR INPATIENT GLYCEMIC CONTROL: * Hold outpatient oral diabetes medications * Basal insulin * none at this time * Bolus insulin * NovoLog per scale ACHS or Q6hrs while NPO * Goal Range: Low 110 mg/dL - High 140 mg/dL * Correction Factor: 25 mg/dL/unit * Nutritional / Prandial insulin per carb ratio of 1 unit per 6 grams CHO consumed PLAN FOR DISCHARGE: * A1c: 6.1% * This indicates excellent glycemic control as an outpt. If patient reports having episodes of hypoglycemia, may consider switching to a different oral agent, as glipizide may predispose pt to hypoglycemia in the setting of impaired renal function.
[2021-11-02] MEDS: HYDROCODONE/ACETAMOPHEN 5/325MG TAB PO PRN ×2 (16:47→21:44)
--- NOTE | 2021-11-02 17:59 | Hospitalist Progress Note ---
Date of Service November 02, 2021 Assessment & Plan (1) Pneumonia due to 2019 novel coronavirus: Plan: ASSESSMENT AND PLAN: This is a 66-year-old female who was recently in the hospital for pyelonephritis with left obstructive calculus, status post stent placement. Treated with IV antibiotics and also acute metabolic encephalopathy secondary to respiratory acidosis status post intubation. Status post bronchoscopy and did fine and got discharged. Comes because of ongoing nausea, vomiting and found to have a temperature spike and abdominal pain and found to be COVID positive. 1. COVID 19 pneumonia Chronic hypoxic respiratory failure Currently on 2 L of O2 which is her baseline, saturating 98 to 99% Chest x-ray showing bilateral infiltrates consistent with viral pneumonia Respiratory status about the same Continue Decadron 6 mg IV day 3 Glycemic control consulted Continue incentive spirometry, heparin for DVT prophylaxis 2. Rule out urinary tract infection History of recent left ureteral stent placement, left nephrolithiasis Urine culture: Negative so far Continue empiric cefepime day #4 Monitor closely Requested urology reevaluation, appreciate the input 3. Nausea and vomiting: Resolved Diet advanced Hematochezia With left lower quadrant pain History of ileocolonic anastomosis, gastroesophageal valve flap based on colonoscopy and EGD in 2019 History of colon cancer, Status post laparoscopic colectomy, total proctectomy and ileostomy, and ileoproctostomy in 2010. Hemoglobin stable overall Consulted GI no plans for EGD colonoscopy at this point 4. History of chronic obstructive pulmonary disease and chronic respiratory failure: On oxygen 2 L. Continue her home inhalers. 5. Chronic kidney disease stage III: Creatinine is 1.5 Creatinine at baseline Potassium and magnesium low, repletion ongoing 6. Diabetes: Insulin sliding scale Pharmacy glycemic control consulted 7. History of colon cancer: Status post laparoscopic colectomy, total proctectomy and ileostomy, and ileoproctostomy in 2010. Per above 8. Morbid obesity: Needs counseling. 9. Anemia: Hemoglobin 8.9, remains stable at 8.4 Possible GI bleed Management per above Hold heparin 10. Hyperlipidemia: On statin. 11. Hypertension: On metoprolol. 12. Deep venous thrombosis prophylaxis: Heparin subcutaneously---> hold for now DISPOSITION: Pending Will need PT and OT evaluation plan of care discussed with patient in detail and at length all questions answered she is understanding, agreeable, comfortable with the plan of care Admission and Anticipated Discharge Date Admission Date: October 29, 2021 Subjective Follow-up for COVID-19 pneumonia, etc. Seen resting in bed comfortable, not in distress Still reports left CVA left lower quadrant pain/tenderness No urinary symptoms, fevers or chills, nausea vomiting Reports breathing continues to improve, less cough, no chest pain, or leg pain No other symptoms Review of Systems Review of Systems: all noted and negative except for above Physical Exam Physical Exam: General- oriented x 3, not in distress, speaks in sentences with no effort or accessory muscle use Eyes- anicteric Neck- no JVD Lungs-clear breath sounds bilaterally, no crackles or wheezing Question Heart- normal rate, regular rhythm; no murmurs Abdomen- normal bowel sounds, nondistended, soft, (+) CVA tenderness- left Mild left lower quadrant tenderness Extremities- no pretibial edema, no calf tenderness Neuro- alert, oriented x 3; no gross focal neurologic deficits Skin- warm & dry Results & Data Results & Data ([facility]) Vital Signs (Past 12 Hours) Vital Signs Temp Pulse Pulse Resp BP BP Pulse Ox 11/02/21 15:47 68 11/02/21 15:14 36.7 C 81 18 120/67 98 11/02/21 10:42 36.5 C 89 18 136/83 97 11/02/21 07:33 36.6 C 73 20 116/74 98 11/02/21 07:24 59 L all noted and reviewed including below
[2021-11-02] MEDS: traMADol HCL 50 MG TABLET PO PRN (18:10)
[2021-11-02] MEDS: CEFEPIME 2,000 MG in SYRINGE 0 ML IV SCH (19:57)
[2021-11-02] MEDS: METOPROLOL SUCC 25MG EXT REL TAB PO SCH (19:59)
[2021-11-02] MEDS: ATORVASTATIN 40 MG TAB PO SCH (19:59)
[2021-11-03 06:36] LABS: Basophils # (auto) 0.01 K/uL (0-0.2); Basophils % (auto) 0.2 %; Eosinophils # (auto) 0.09 K/uL (0-0.5); Eosinophils % (auto) 1.7 %; Hematocrit (blood only) 28.5 % (37-47); Hemoglobin 8.3 g/dL (12.0-16.0); Immature Granulocytes # (auto) 0.02 K/uL (0.00-0.02); Immature Granulocytes % (auto) 0.4 %; Lymphocytes # (auto) 1.77 K/uL (1.2-3.4); Lymphocytes % (auto) 34.1 %; Mean Corpuscular Hemoglobin 29.2 pg (25-34); Mean Corpuscular Hgb Conc 29.1 g/dL (32-36); Mean Corpuscular Volume 100.4 fL (80-100); Mean Platelet Volume 11.2 fL (7.4-10.4); Monocytes % (auto) 11.6 %; Platelet Count 224 K/uL (130-400); RDW Standard Deviation 51.7 fL (36.4-46.3); Red Blood Count 2.84 M/uL (4.2-5.4); White Blood Count 5.19 K/uL (4.8-10.8)
[2021-11-03 07:01] LABS: BUN Creatinine Ratio 9.7 (10-20); Calcium 9.1 mg/dl (8.5-10.1); Creatinine Clr Calc Pharmacy 37.7 ml/min; Est GFR (African American) 42.8 ml/min; Est GFR (Non-African American) 36.9 ml/min; Magnesium 1.9 mg/dl (1.7-2.4); Potassium 3.5 mmol/L (3.5-5.1)
[2021-11-03] MEDS: CHOLECALCIFEROL 1,000 UNITS 25 MCG TAB PO SCH (08:07)
[2021-11-03] MEDS: MAGNESIUM CHLORIDE 64MG DELAYED REL TAB PO SCH ×2 (08:08→20:28)
[2021-11-03] MEDS: PANTOprazole 40 MG TAB PO SCH ×2 (08:08→20:30)
[2021-11-03] MEDS: METOPROLOL SUCC 50MG EXT REL TAB PO SCH (08:08)
[2021-11-03] MEDS: OXcarbazepine 150 MG TABLET PO SCH ×2 (08:08→20:29)
[2021-11-03] MEDS: ONDANSETRON INJ 2 MG/ML 2 ML VIAL IV PRN (08:10)
[2021-11-03] MEDS: dexAMETHasone 6 MG in SYRINGE 0 ML IV SCH (08:14)
[2021-11-03] MEDS: INSULIN ASPART PER UNIT SC SCH ×4 (09:20→22:08)
--- NOTE | 2021-11-03 12:37 | Hospitalist Progress Note ---
Date of Service November 03, 2021 Assessment & Plan (1) Pneumonia due to 2019 novel coronavirus: Plan: ASSESSMENT AND PLAN: This is a 66-year-old female who was recently in the hospital for pyelonephritis with left obstructive calculus, status post stent placement. Treated with IV antibiotics and also acute metabolic encephalopathy secondary to respiratory acidosis status post intubation. Status post bronchoscopy and did fine and got discharged. Comes because of ongoing nausea, vomiting and found to have a temperature spike and abdominal pain and found to be COVID positive. 1. COVID 19 pneumonia Chronic hypoxic respiratory failure Currently on 2 L of O2 which is her baseline, saturating 98 to 99% Chest x-ray showing bilateral infiltrates consistent with viral pneumonia Respiratory status about the same Continue Decadron 6 mg IV day 4 Glycemic control consulted Continue incentive spirometry, heparin for DVT prophylaxis Subjectively improving, breathing is easier for patient No dyspnea on exertion Possible DC in 1 to 2 days to finish p.o. Decadron course at home 2. Rule out urinary tract infection History of recent left ureteral stent placement, left nephrolithiasis Urine culture: Negative so far Possible partially treated UTI Continue empiric cefepime day #5 Monitor closely Requested urology reevaluation, recommend KUB to rule out stent migration Recommend as needed tamsulosin, Pyridium as needed for pain 3. Nausea and vomiting: Resolved Diet advanced Hematochezia With left lower quadrant pain History of ileocolonic anastomosis, gastroesophageal valve flap based on colonoscopy and EGD in 2019 History of colon cancer, Status post laparoscopic colectomy, total proctectomy and ileostomy, and ileoproctostomy in 2010. One episode Hemoglobin stable overall Consulted GI no plans for EGD colonoscopy at this point 4. History of chronic obstructive pulmonary disease and chronic respiratory failure: On oxygen 2 L. Continue her home inhalers. 5. Chronic kidney disease stage III: Creatinine at baseline, 1.4 Potassium and magnesium low, repletion ongoing 6. Diabetes: Insulin sliding scale Pharmacy glycemic control consulted 7. History of colon cancer: Status post laparoscopic colectomy, total proctectomy and ileostomy, and ileoproctostomy in 2010. Per above 8. Morbid obesity: Needs counseling. 9. Anemia: Hemoglobin 8.9, remains stable around 8 Active GI bleed unlikely No plans for scoping per GI 10. Hyperlipidemia: On statin. 11. Hypertension: On metoprolol. 12. Deep venous thrombosis prophylaxis:Resume heparin subcutaneous, monitor closely DISPOSITION: Pending Lives at home Will need PT and OT evaluation If going home, patient requesting assistance with transportation plan of care discussed with patient in detail and at length all questions answered she is understanding, agreeable, comfortable with the plan of care Admission and Anticipated Discharge Date Admission Date: October 29, 2021 Subjective Follow-up for COVID-19 pneumonia, hypoxic respiratory failure, etc. Seen resting in bed, comfortable, not in distress On 2 L of oxygen States breathing is improving, less cough No chest pain Reports mild left lower quadrant and left CVA pain, slightly better compared to yesterday No urinary symptoms, fevers or chills No other symptoms Review of Systems Review of Systems: all noted and negative except for above Physical Exam Physical Exam: General- oriented x 3, not in distress, speaks in sentences with no effort or accessory muscle use Eyes- anicteric Neck- no JVD Lungs- clear BS, no crackles or wheezing bilaterally Heart- normal rate, regular rhythm; no murmurs Abdomen- normal bowel sounds, nondistended, soft, mild left CVA tenderness and left lower quadrant tenderness Extremities- no pretibial edema, no calf tenderness Neuro- alert, oriented x 3; no gross focal neurologic deficits Skin- warm & dry Results & Data Results & Data ([facility]) Vital Signs (Past 12 Hours) Vital Signs Temp Pulse Pulse Resp BP Pulse Ox 11/03/21 11:56 37.1 C 68 18 117/71 93 11/03/21 07:35 36.3 C L 70 18 124/73 96 11/03/21 07:11 61 11/03/21 03:54 36.8 C 72 18 129/75 94 all noted and reviewed including below
[2021-11-03] MEDS ORDERED: PHENAZOPYRIDINE HCL 100 MG TAB PO PRN (12:38)
--- NOTE | 2021-11-03 13:50 | XRay Report ---
XR KUB/Abdomen 1 view CLINICAL HISTORY: r/o left ureteral stent migration TECHNIQUE: 1 view of the abdomen was obtained. Comparison: Comparison is made to chest and abdomen radiographs 10/29/2021 FINDINGS: Left nephroureteral stent is in adequate position. Bilateral nephrolithiasis is seen. Surgical clips are again seen over the right upper quadrant. The osseous structures are grossly unremarkable. The jeremias wel gas pattern is nonobstructive. A moderate amount of stool is noted within the large bowel. IMPRESSION: No significant migration of the left ureteral stent. ACT 112: Negative or not required by law. Electronically signed by: Yuan Jorge M.D. 11/03/2021 1:49 PM
[2021-11-03] MEDS: TAMSULOSIN HCL 0.4 MG CAP PO SCH (15:48)
[2021-11-03] MEDS: HEPARIN SOD 5,000 UNIT/0.5 ML VIAL SQ SCH ×2 (15:53→21:46)
[2021-11-03] MEDS: ATORVASTATIN 40 MG TAB PO SCH (20:27)
[2021-11-03] MEDS: CEFDINIR 300 MG CAP PO SCH (20:27)
[2021-11-03] MEDS: CLOPIDOGREL BISULFATE 75 MG TAB PO SCH (20:28)
[2021-11-03] MEDS: METOPROLOL SUCC 25MG EXT REL TAB PO SCH (20:29)
[2021-11-03] MEDS: ACETAMINOPHEN 325 MG TAB PO PRN (21:45)
[2021-11-03] MEDS: HYDROCODONE/ACETAMOPHEN 5/325MG TAB PO PRN (22:32)
[2021-11-04] MEDS: ONDANSETRON INJ 2 MG/ML 2 ML VIAL IV PRN ×2 (00:19→08:26)
[2021-11-04] MEDS: HEPARIN SOD 5,000 UNIT/0.5 ML VIAL SQ SCH ×3 (05:58→20:54)
[2021-11-04 07:43] LABS: BUN Creatinine Ratio 13.5 (10-20); Creatinine Clr Calc Pharmacy 31.9 ml/min; Est GFR (African American) 35.3 ml/min; Est GFR (Non-African American) 30.5 ml/min; Magnesium 1.8 mg/dl (1.7-2.4); Potassium 3.9 mmol/L (3.5-5.1)
[2021-11-04] MEDS: INSULIN ASPART PER UNIT SC SCH ×4 (08:07→20:50)
[2021-11-04 08:10] LABS: Basophils # (auto) 0.02 K/uL (0-0.2); Basophils % (auto) 0.3 %; Eosinophils % (auto) 3.3 %; Hematocrit (blood only) 30.3 % (37-47); Hemoglobin 8.9 g/dL (12.0-16.0); Immature Granulocytes # (auto) 0.07 K/uL (0.00-0.02); Immature Granulocytes % (auto) 1.2 %; Lymphocytes # (auto) 2.33 K/uL (1.2-3.4); Lymphocytes % (auto) 38.9 %; Mean Corpuscular Hemoglobin 29.4 pg (25-34); Mean Corpuscular Hgb Conc 29.4 g/dL (32-36); Mean Platelet Volume 11.3 fL (7.4-10.4); Monocytes # (auto) 0.75 K/uL (0.11-0.59); Monocytes % (auto) 12.5 %; Neutrophils # (auto) 2.62 K/uL (1.4-6.5); Neutrophils % (auto) 43.8 %; Platelet Count 243 K/uL (130-400); RDW Standard Deviation 50.7 fL (36.4-46.3); Red Blood Count 3.03 M/uL (4.2-5.4); White Blood Count 5.99 K/uL (4.8-10.8)
[2021-11-04] MEDS: dexAMETHasone 6 MG in SYRINGE 0 ML IV SCH (08:26)
[2021-11-04] MEDS: METOPROLOL SUCC 50MG EXT REL TAB PO SCH (08:27)
[2021-11-04] MEDS: MAGNESIUM CHLORIDE 64MG DELAYED REL TAB PO SCH ×2 (08:27→20:49)
[2021-11-04] MEDS: TAMSULOSIN HCL 0.4 MG CAP PO SCH (08:27)
[2021-11-04] MEDS: CHOLECALCIFEROL 1,000 UNITS 25 MCG TAB PO SCH (08:27)
[2021-11-04] MEDS: OXcarbazepine 150 MG TABLET PO SCH ×2 (08:27→20:47)
[2021-11-04] MEDS: PANTOprazole 40 MG TAB PO SCH ×2 (08:28→20:49)
[2021-11-04] MEDS: CEFDINIR 300 MG CAP PO SCH ×2 (08:28→20:50)
--- NOTE | 2021-11-04 19:32 | Hospitalist Progress Note ---
Date of Service November 04, 2021 Assessment & Plan (1) Pneumonia due to 2019 novel coronavirus: Plan: ASSESSMENT AND PLAN: This is a 66-year-old female who was recently in the hospital for pyelonephritis with left obstructive calculus, status post stent placement. Treated with IV antibiotics and also acute metabolic encephalopathy secondary to respiratory acidosis status post intubation. Status post bronchoscopy and did fine and got discharged. Comes because of ongoing nausea, vomiting and found to have a temperature spike and abdominal pain and found to be COVID positive. 1. COVID 19 pneumonia Chronic hypoxic respiratory failure Currently on 2 L of O2 which is her baseline, saturating 98 to 99% Chest x-ray showing bilateral infiltrates consistent with viral pneumonia Respiratory status about the same Continue Decadron 6 mg IV day 5 Continue incentive spirometry Subjectively improving, breathing is easier for patient No dyspnea on exertion Possible DC in 1 to 2 days to finish p.o. Decadron course at home 2. Rule out urinary tract infection History of recent left ureteral stent placement, left nephrolithiasis Urine culture: Negative so far Possible partially treated UTI Patient was started on cefepime IV for 5 days then transition to cefdinir on 11/03 cefepime Requested urology reevaluation, recommend KUB to rule out stent migration Recommend as needed tamsulosin, Pyridium as needed for pain 3. Nausea and vomiting: Resolved Diet advanced Hematochezia With left lower quadrant pain History of ileocolonic anastomosis, gastroesophageal valve flap based on colonoscopy and EGD in 2019 History of colon cancer, Status post laparoscopic colectomy, total proctectomy and ileostomy, and ileoproctostomy in 2010. One episode Hemoglobin stable overall Consulted GI no plans for EGD colonoscopy at this point 4. History of chronic obstructive pulmonary disease and chronic respiratory failure: On oxygen 2 L. Continue her home inhalers. 5. Chronic kidney disease stage III: Creatinine 1.7 creatinine at baseline, 1.4 Continue monitor BMP 6. Diabetes: Insulin sliding scale Pharmacy glycemic control consulted Continue monitor blood sugar 7. History of colon cancer: Status post laparoscopic colectomy, total proctectomy and ileostomy, and ileoproctostomy in 2010. Per above 8. Morbid obesity: Needs counseling. 9. Anemia: Hemoglobin 8.9, remains stable around 8 Active GI bleed unlikely No plans for scoping per GI 10. Hyperlipidemia: On statin. 11. Hypertension: On metoprolol. 12. Deep venous thrombosis prophylaxis:On heparin subcutaneous, monitor closely DISPOSITION: We will discharge once medically stable Admission and Anticipated Discharge Date Admission Date: October 29, 2021 Subjective Patient was seen and examined for follow-up of abdominal pain associated with nausea and shortness of breath due to COVID-19 Lying in bed with no acute distress Patient said that she continues to have abdominal tenderness and nausea Currently she saturated well on her baseline 2 L nasal cannula Denies any chest pain, palpitation, dizziness, and fever Review of Systems Review of Systems: All systems reviewed & are unremarkable except as noted in Subjective Physical Exam Physical Exam: General- No acute distress Head- atraumatic Eyes- PERRL, EOMI, ENT- oropharynx clear Neck- supple, no JVD Lungs- clear to auscultation Heart- regular rhythm; no murmur Abdomen- normal bowel sounds, soft, nontender Extremities- no calf tenderness Neuro- alert, oriented x 3; PERRL, EOMI; no facial palsy; no dysarthria Skin- warm & dry Results & Data Results & Data ([facility]) Vital Signs (Past 12 Hours) Vital Signs Temp Pulse Pulse Resp BP Pulse Ox 11/04/21 15:12 79 11/04/21 15:05 36.9 C 72 20 113/73 97 11/04/21 10:26 36.7 C 76 18 121/82 97 11/04/21 07:59 36.6 C 74 87 20 146/83 H 96
[2021-11-04] MEDS ORDERED: CARBOHYDRATES FOR HYPOGLYCEMIA PO PRN (20:45)
[2021-11-04] MEDS ORDERED: DEXTROSE 50% 50 ML SYRINGE IV PRN (20:45)
[2021-11-04] MEDS ORDERED: GLUCAGON FOR INJ 1 MG VIAL IM PRN (20:45)
[2021-11-04] MEDS ORDERED: GLUCOSE 10 TABS/TUBE PO PRN (20:45)
[2021-11-04] MEDS ORDERED: GLUCOSE 40% GEL 15 GM TUBE PO PRN (20:45)
[2021-11-04] MEDS: METOPROLOL SUCC 25MG EXT REL TAB PO SCH (20:51)
[2021-11-04] MEDS: CLOPIDOGREL BISULFATE 75 MG TAB PO SCH (20:51)
[2021-11-04] MEDS: ATORVASTATIN 40 MG TAB PO SCH (20:52)
[2021-11-05] MEDS: HEPARIN SOD 5,000 UNIT/0.5 ML VIAL SQ SCH ×3 (06:15→21:58)
[2021-11-05 07:48] LABS: Hematocrit (blood only) 33.1 % (37-47); Hemoglobin 9.7 g/dL (12.0-16.0); Mean Corpuscular Hemoglobin 29.1 pg (25-34); Mean Corpuscular Hgb Conc 29.3 g/dL (32-36); Mean Corpuscular Volume 99.4 fL (80-100); Mean Platelet Volume 11.1 fL (7.4-10.4); Platelet Count 263 K/uL (130-400); RDW Coefficient of Variation 14.2 % (11.5-14.5); RDW Standard Deviation 51.3 fL (36.4-46.3); Red Blood Count 3.33 M/uL (4.2-5.4); White Blood Count 8.39 K/uL (4.8-10.8)
[2021-11-05] MEDS: dexAMETHasone 6 MG in SYRINGE 0 ML IV SCH (08:05)
[2021-11-05] MEDS: METOPROLOL SUCC 50MG EXT REL TAB PO SCH (08:06)
[2021-11-05] MEDS: TAMSULOSIN HCL 0.4 MG CAP PO SCH (08:06)
[2021-11-05] MEDS: CHOLECALCIFEROL 1,000 UNITS 25 MCG TAB PO SCH (08:06)
[2021-11-05] MEDS: PANTOprazole 40 MG TAB PO SCH ×2 (08:07→22:04)
[2021-11-05] MEDS: MAGNESIUM CHLORIDE 64MG DELAYED REL TAB PO SCH ×2 (08:07→22:01)
[2021-11-05] MEDS: OXcarbazepine 150 MG TABLET PO SCH ×2 (08:07→22:02)
[2021-11-05] MEDS: INSULIN ASPART PER UNIT SC SCH ×4 (08:08→22:03)
[2021-11-05] MEDS: CEFDINIR 300 MG CAP PO SCH ×2 (08:08→22:03)
[2021-11-05 08:13] LABS: BUN Creatinine Ratio 14.9 (10-20); Calcium 9.6 mg/dl (8.5-10.1); Creatinine Clr Calc Pharmacy 36.3 ml/min; Est GFR (African American) 41.7 ml/min; Potassium 3.9 mmol/L (3.5-5.1)
--- NOTE | 2021-11-05 13:17 | Pharmacy Report ---
Pharmacy Glycemic Short Note 2 - Date of Service November 05, 2021 - Glycemic Short BSG Results (Last 24 hours): 11/04/21 11/04/21 11/04/21 16:53 20:18 20:19 Glucose POC Glucose 160 H 62 L* 64 L* 11/04/21 11/05/21 11/05/21 20:45 07:14 07:33 Glucose 102 H POC Glucose 96 95 11/05/21 11:58 Glucose POC Glucose 176 H OUTPATIENT ANTIDIABETIC REGIMEN: * Glipizide ER 2.5mg PO qPM * HbA1c: 6.1% (10/30/21) ASSESSMENT: 11/05/21 * Patient's BSGs yesterday were [id number]. Today's BSGs are 95-176 mg/dL. * Patient received 24 units of bolus insulin yesterday. No basal. * Continue to hold basal. As direct progresses may require some NPH. * Loosened Novolog due to hypoglycemia yesterday. 11/02/21: * Pt has been requiring less than 10 units of insulin per day. She hasn't required any basal insulin. * She is still receiving IV dexamethasone and appears to be tolerating her diet. * No changes required at this time. 10/31 * Ms Nesbitt is a 66yo diabetic female admitted with COVID, UTI. * BSGs have been below goal since admission, but pt was started on IV dexamethasone this morning, which is likely to cause steroid-induced hyperglycemia. * Novolog parameters tightened this morning to provide more coverage throughout the day. * If BSGs begin to rise, will add NPH to be administered with IV steroids daily. Did not add immediately d/t patient's current BSGs and A1c. * Patient is ordered a diabetic, clear liquid diet. PLAN FOR INPATIENT GLYCEMIC CONTROL: * Hold outpatient oral diabetes medications * Basal insulin * none at this time * Bolus insulin * NovoLog per scale ACHS or Q6hrs while NPO * Goal Range: Low 110 mg/dL - High 140 mg/dL * Correction Factor: 30 mg/dL/unit * Nutritional / Prandial insulin per carb ratio of 1 unit per 8 grams CHO consumed PLAN FOR DISCHARGE: * A1c: 6.1% * This indicates excellent glycemic control as an outpt. If patient reports having episodes of hypoglycemia, may consider switching to a different oral agent, as glipizide may predispose pt to hypoglycemia in the setting of impaired renal function.
--- NOTE | 2021-11-05 16:46 | Hospitalist Progress Note ---
Date of Service November 05, 2021 Assessment & Plan (1) Pneumonia due to 2019 novel coronavirus: Plan: ASSESSMENT AND PLAN: This is a 66-year-old female who was recently in the hospital for pyelonephritis with left obstructive calculus, status post stent placement. Treated with IV antibiotics and also acute metabolic encephalopathy secondary to respiratory acidosis status post intubation. Status post bronchoscopy and did fine and got discharged. Comes because of ongoing nausea, vomiting and found to have a temperature spike and abdominal pain and found to be COVID positive. 1. COVID 19 pneumonia Chronic hypoxic respiratory failure Currently on 2 L of O2 which is her baseline, saturating 98 to 99% Chest x-ray showing bilateral infiltrates consistent with viral pneumonia Respiratory status about the same Continue Decadron 6 mg IV day 6 Continue incentive spirometry Subjectively improving, breathing is easier for patient No dyspnea on exertion Possible DC in 1 to 2 days to finish p.o. Decadron course at home 2. Rule out urinary tract infection History of recent left ureteral stent placement, left nephrolithiasis Urine culture: Negative so far Possible partially treated UTI Patient was started on cefepime IV for 5 days then transition to cefdinir on 11/03 cefepime Requested urology reevaluation, recommend KUB to rule out stent migration Recommend as needed tamsulosin, Pyridium as needed for pain 3. Nausea and vomiting: Resolved Diet advanced Diarrhea Pt has been having about 5 to 6 episodes of watery diarrhea Possible related to COVID 19 Will check stool for Cdiff Will monitor electrolytes Hematochezia With left lower quadrant pain History of ileocolonic anastomosis, gastroesophageal valve flap based on colon oscopy and EGD in 2019 History of colon cancer, Status post laparoscopic colectomy, total proctectomy and ileostomy, and ileoproctostomy in 2010. One episode Hemoglobin stable overall Consulted GI no plans for EGD colonoscopy at this point 4. History of chronic obstructive pulmonary disease and chronic respiratory failure: On oxygen 2 L. Continue her home inhalers. 5. Chronic kidney disease stage III: Creatinine 1.4 creatinine at baseline, 1.4 Continue monitor BMP 6. Diabetes: Insulin sliding scale Pharmacy glycemic control consulted Continue monitor blood sugar 7. History of colon cancer: Status post laparoscopic colectomy, total proctectomy and ileostomy, and ileoproctostomy in 2010. 8. Morbid obesity: Needs counseling. 9. Anemia: Hemoglobin 9.7, remains stable around 8 Active GI bleed unlikely No plans for scoping per GI 10. Hyperlipidemia: On statin. 11. Hypertension: On metoprolol. 12. Deep venous thrombosis prophylaxis:On heparin subcutaneous, monitor closely DISPOSITION: We will discharge once medically stable Admission and Anticipated Discharge Date Admission Date: October 29, 2021 Subjective Patient was seen and examined for follow-up of abdominal pain associated with nausea and shortness of breath due to COVID-19 Lying in bed with no acute distress Patient continues to have abdominal tenderness and nausea She has been having recurrent of watery diarrhea about 5 to 6 times today Currently she saturated well on her baseline 2 L nasal cannula Denies any chest pain, palpitation, dizziness, and fever Review of Systems Review of Systems: All systems reviewed & are unremarkable except as noted in Subjective Physical Exam Physical Exam: General- No acute distress Head- atraumatic Eyes- PERRL, EOMI, ENT- oropharynx clear Neck- supple, no JVD Lungs-No wheezing, no rales Heart- regular rhythm; no murmur Abdomen- normal bowel sounds, soft, nontender Extremities- no calf tenderness Neuro- alert, oriented x 3; PERRL, EOMI; no facial palsy; no dysarthria Skin- warm & dry Results & Data Results & Data ([facility]) Vital Signs (Past 12 Hours) Vital Signs Temp Pulse Pulse Resp BP Pulse Ox 11/05/21 14:58 36.8 C 103 H 20 156/94 H 100 11/05/21 14:49 76 11/05/21 10:58 36.7 C 89 20 150/82 H 97 11/05/21 07:29 36.3 C L 69 20 142/84 H 99 11/05/21 07:00 84
[2021-11-05] MEDS: HYDROCODONE/ACETAMOPHEN 5/325MG TAB PO PRN (22:01)
[2021-11-05] MEDS: CLOPIDOGREL BISULFATE 75 MG TAB PO SCH (22:02)
[2021-11-05] MEDS: ATORVASTATIN 40 MG TAB PO SCH (22:03)
[2021-11-05] MEDS: METOPROLOL SUCC 25MG EXT REL TAB PO SCH (22:04)
[2021-11-06] MEDS: HEPARIN SOD 5,000 UNIT/0.5 ML VIAL SQ SCH ×3 (05:24→21:22)
[2021-11-06 06:19] LABS: BUN Creatinine Ratio 21.7 (10-20); Calcium 10.4 mg/dl (8.5-10.1); Creatinine Clr Calc Pharmacy 37.4 ml/min; Est GFR (African American) 43.5 ml/min; Est GFR (Non-African American) 37.5 ml/min; Magnesium 1.5 mg/dl (1.7-2.4); Phosphorus 2.7 mg/dl (2.5-4.9); Potassium 4.1 mmol/L (3.5-5.1)
[2021-11-06] MEDS: INSULIN ASPART PER UNIT SC SCH ×4 (07:53→21:23)
[2021-11-06] MEDS: MAGNESIUM CHLORIDE 64MG DELAYED REL TAB PO SCH ×2 (07:59→21:27)
[2021-11-06] MEDS: OXcarbazepine 150 MG TABLET PO SCH ×2 (08:00→21:29)
[2021-11-06] MEDS: METOPROLOL SUCC 50MG EXT REL TAB PO SCH (08:00)
[2021-11-06] MEDS: dexAMETHasone 6 MG in SYRINGE 0 ML IV SCH (08:01)
[2021-11-06] MEDS: CHOLECALCIFEROL 1,000 UNITS 25 MCG TAB PO SCH (08:01)
[2021-11-06] MEDS: PANTOprazole 40 MG TAB PO SCH ×2 (08:01→21:30)
[2021-11-06] MEDS: TAMSULOSIN HCL 0.4 MG CAP PO SCH (08:02)
[2021-11-06] MEDS: CEFDINIR 300 MG CAP PO SCH ×2 (08:02→21:29)
[2021-11-06] MEDS: MAGNESIUM SULFATE / D5W 1 GM/100 ML BAG IV SCH ×2 (08:15→10:18)
[2021-11-06] MEDS: HYDROCODONE/ACETAMOPHEN 5/325MG TAB PO PRN (19:10)
--- NOTE | 2021-11-06 21:23 | Hospitalist Progress Note ---
Date of Service November 06, 2021 Assessment & Plan (1) Pneumonia due to 2019 novel coronavirus: Plan: ASSESSMENT AND PLAN: This is a 66-year-old female who was recently in the hospital for pyelonephritis with left obstructive calculus, status post stent placement. Treated with IV antibiotics and also acute metabolic encephalopathy secondary to respiratory acidosis status post intubation. Status post bronchoscopy and did fine and got discharged. Comes because of ongoing nausea, vomiting and found to have a temperature spike and abdominal pain and found to be COVID positive. 1. COVID 19 pneumonia Chronic hypoxic respiratory failure Currently on 2 L of O2 which is her baseline, saturating 98 to 99% Chest x-ray showing bilateral infiltrates consistent with viral pneumonia Respiratory status about the same Continue Decadron 6 mg IV day 7 Continue incentive spirometry Subjectively improving, breathing is easier for patient No dyspnea on exertion Possible DC in 1 to 2 days to finish p.o. Decadron course at home 2. Rule out urinary tract infection History of recent left ureteral stent placement, left nephrolithiasis Urine culture: Negative so far Possible partially treated UTI Patient was started on cefepime IV for 5 days then transition to cefdinir on 11/03 cefepime Requested urology reevaluation, recommend KUB to rule out stent migration Recommend as needed tamsulosin, Pyridium as needed for pain 3. Nausea and vomiting: Resolved Diet advanced Diarrhea Pt has been having about 5 to 6 episodes of watery diarrhea Possible related to COVID 19 Stool for C. difficile negative Continue monitor electrolytes Hematochezia With left lower quadrant pain History of ileocolonic anastomosis, gastroesophageal valve flap based on colonoscopy and EGD in 2019 History of colon cancer, Status post laparoscopic colectomy, total proctectomy and ileostomy, and ileoproctostomy in 2010. Hemoglobin stable overall Consulted GI no plans for EGD colonoscopy at this point Hypomagnesemia Possible related to diarrhea and poor oral intake Mg 1.5 today, replaced Continue monitor electrolytes 4. History of chronic obstructive pulmonary disease and chronic respiratory failure: On oxygen 2 L. Continue her home inhalers. 5. Chronic kidney disease stage III: Creatinine 1.4 creatinine at baseline, 1.4 Continue monitor BMP 6. Diabetes: Insulin sliding scale Pharmacy glycemic control consulted Continue monitor blood sugar 7. History of colon cancer: Status post laparoscopic colectomy, total proctectomy and ileostomy, and ileoproctostomy in 2010. 8. Morbid obesity: Needs counseling. 9. Anemia: Hemoglobin 9.7, remains stable around 8 Active GI bleed unlikely No plans for scoping per GI 10. Hyperlipidemia: On statin. 11. Hypertension: On metoprolol. 12. Deep venous thrombosis prophylaxis:On heparin subcutaneous, monitor closely DISPOSITION: We will discharge once medically stable Admission and Anticipated Discharge Date Admission Date: October 29, 2021 Subjective Patient was seen and examined for follow-up of abdominal pain associated with nausea and shortness of breath due to COVID-19 Lying in bed with no acute distress Patient continues to have abdominal tenderness She said she continued to have watery diarrhea but seems to improve. She had 2 episodes of bowel movement earlier Currently she saturated well on her baseline 2 L nasal cannula Denies any chest pain, palpitation, dizziness, and fever Review of Systems Review of Systems: All systems reviewed & are unremarkable except as noted in Subjective Physical Exam Physical Exam: General- No acute distress Head- atraumatic Eyes- PERRL, EOMI, ENT- oropharynx clear Neck- supple, no JVD Lungs-No wheezing, no rales Heart- regular rhythm; no murmur Abdomen- normal bowel sounds, soft, +tender Extremities- no calf tenderness Neuro- alert, oriented x 3; PERRL, EOMI; no facial palsy; no dysarthria Skin- warm & dry Results & Data Results & Data ([facility]) Vital Signs (Past 12 Hours) Vital Signs Temp Pulse Pulse Resp BP Pulse Ox 11/06/21 20:04 36.6 C 84 20 109/72 98 11/06/21 14:17 92 H 11/06/21 11:37 36.6 C 102 H 19 131/93 99
[2021-11-06] MEDS: ATORVASTATIN 40 MG TAB PO SCH (21:27)
[2021-11-06] MEDS: METOPROLOL SUCC 25MG EXT REL TAB PO SCH (21:27)
[2021-11-06] MEDS: CLOPIDOGREL BISULFATE 75 MG TAB PO SCH (21:28)
[2021-11-07 06:59] LABS: BUN Creatinine Ratio 22.7 (10-20); Calcium 10.8 mg/dl (8.5-10.1); Creatinine Clr Calc Pharmacy 34.6 ml/min; Est GFR (African American) 39.8 ml/min; Est GFR (Non-African American) 34.3 ml/min; Magnesium 1.9 mg/dl (1.7-2.4); Potassium 4.1 mmol/L (3.5-5.1)
[2021-11-07] MEDS: HEPARIN SOD 5,000 UNIT/0.5 ML VIAL SQ SCH ×3 (09:40→20:41)
[2021-11-07] MEDS: PANTOprazole 40 MG TAB PO SCH ×2 (09:41→20:44)
[2021-11-07] MEDS: OXcarbazepine 150 MG TABLET PO SCH ×2 (09:42→20:43)
[2021-11-07] MEDS: CEFDINIR 300 MG CAP PO SCH ×2 (09:42→20:43)
[2021-11-07] MEDS: TAMSULOSIN HCL 0.4 MG CAP PO SCH (09:42)
[2021-11-07] MEDS: METOPROLOL SUCC 50MG EXT REL TAB PO SCH (09:42)
[2021-11-07] MEDS: INSULIN ASPART PER UNIT SC SCH ×4 (09:43→21:10)
[2021-11-07] MEDS: CHOLECALCIFEROL 1,000 UNITS 25 MCG TAB PO SCH (09:43)
[2021-11-07] MEDS: ACETAMINOPHEN 325 MG TAB PO PRN (09:44)
[2021-11-07] MEDS: MAGNESIUM CHLORIDE 64MG DELAYED REL TAB PO SCH ×2 (09:45→20:45)
[2021-11-07] MEDS: HYDROCODONE/ACETAMOPHEN 5/325MG TAB PO PRN (10:52)
[2021-11-07] MEDS: dexAMETHasone 6 MG in SYRINGE 0 ML IV SCH (10:52)
[2021-11-07] MEDS: LOPERAMIDE HCL 2 MG CAP PO PRN (11:00)
[2021-11-07] MEDS: CLOPIDOGREL BISULFATE 75 MG TAB PO SCH (20:44)
[2021-11-07] MEDS: METOPROLOL SUCC 25MG EXT REL TAB PO SCH (20:45)
[2021-11-07] MEDS: ATORVASTATIN 40 MG TAB PO SCH (20:46)
--- NOTE | 2021-11-07 22:09 | Hospitalist Progress Note ---
Date of Service November 07, 2021 Assessment & Plan (1) Pneumonia due to 2019 novel coronavirus: Plan: ASSESSMENT AND PLAN: This is a 66-year-old female who was recently in the hospital for pyelonephritis with left obstructive calculus, status post stent placement. Treated with IV antibiotics and also acute metabolic encephalopathy secondary to respiratory acidosis status post intubation. Status post bronchoscopy and did fine and got discharged. Comes because of ongoing nausea, vomiting and found to have a temperature spike and abdominal pain and found to be COVID positive. 1. COVID 19 pneumonia Chronic hypoxic respiratory failure Currently on 2 L of O2 which is her baseline, saturating 98 to 99% Chest x-ray showing bilateral infiltrates consistent with viral pneumonia Respiratory status about the same Continue Decadron 6 mg IV day 8 Continue incentive spirometry No dyspnea on exertion Respiratory status clinically improved significantly 2. Rule out urinary tract infection History of recent left ureteral stent placement, left nephrolithiasis Urine culture: Negative so far Possible partially treated UTI Patient was started on cefepime IV for 5 days then transition to cefdinir on 11/03 cefepime Requested urology reevaluation, recommend KUB to rule out stent migration Recommend as needed tamsulosin, Pyridium as needed for pain 3. Abdominal pain associated with nausea and vomiting: KUB on admission showed no significant migration of the left ureteral stent Tolerated diet Continue to have abdominal pain and nausea We will get a CT of the abdomen due to the ongoing pain Diarrhea Pt has been having about 5 to 6 episodes of watery diarrhea Possible related to COVID 19 Stool for C. difficile negative Continue monitor electrolytes Hematochezia With left lower quadrant pain History of ileocolonic anastomosis, gastroesophageal valve flap based on colonoscopy and EGD in 2019 History of colon cancer, Status post laparoscopic colectomy, total proctectomy and ileostomy, and ileoproctostomy in 2010. Hemoglobin stable overall Consulted GI no plans for EGD colonoscopy at this point Hypomagnesemia Possible related to diarrhea and poor oral intake Mg 1.9 today Continue monitor electrolytes 4. History of chronic obstructive pulmonary disease and chronic respiratory failure: On oxygen 2 L. Continue her home inhalers. 5. Chronic kidney disease stage III: Creatinine 1.5 creatinine at baseline, 1.4 Continue monitor BMP 6. Diabetes: Insulin sliding scale Pharmacy glycemic control consulted Continue monitor blood sugar 7. History of colon cancer: Status post laparoscopic colectomy, total proctectomy and ileostomy, and ileoproctostomy in 2010. 8. Morbid obesity: Needs counseling. 9. Anemia: Hemoglobin 9.7, remains stable around 8 Active GI bleed unlikely No plans for scoping per GI 10. Hyperlipidemia: On statin. 11. Hypertension: On metoprolol. 12. Deep venous thrombosis prophylaxis:On heparin subcutaneous, monitor closely DISPOSITION: We will discharge once medically stable Admission and Anticipated Discharge Date Admission Date: October 29, 2021 Subjective Patient was seen and examined for follow-up of abdominal pain associated with diarrhea and shortness of breath due to COVID-19 Lying in bed with no acute distress Patient continues to have abdominal tenderness She said she continued to have watery diarrhea and abdominal pain Currently she saturated well on her baseline 2 L nasal cannula Denies any chest pain, palpitation, dizziness, and fever Review of Systems Review of Systems: All systems reviewed & are unremarkable except as noted in Subjective Physical Exam Physical Exam: General- No acute distress Head- atraumatic Eyes- PERRL, EOMI, ENT- oropharynx clear Neck- supple, no JVD Lungs-No wheezing, no rales Heart- regular rhythm; no murmur Abdomen- normal bowel sounds, soft, +tender Extremities- no calf tenderness Neuro- alert, oriented x 3; PERRL, EOMI; no facial palsy; no dysarthria Skin- warm & dry Results & Data Results & Data ([facility]) Vital Signs (Past 12 Hours) Vital Signs Temp Pulse Pulse Resp BP Pulse Ox 11/07/21 19:53 37.2 C 98 H 20 150/84 H 96 11/07/21 15:18 36.7 C 109 H 20 151/94 H 96 11/07/21 14:20 79 11/07/21 12:23 36.9 C 90 20 121/86 97
[2021-11-07] MEDS: traMADol HCL 50 MG TABLET PO PRN (23:16)
--- NOTE | 2021-11-07 23:39 | CT Scan Report ---
ABDOMEN AND PELVIS CT WITHOUT CONTRAST CT DOSE: 858.62 mGy.cm HISTORY: Acute generalized abdominal pain with nausea and diarrhea abd pain +nausea/diarrhea TECHNIQUE: Multiaxial CT images of the abdomen and pelvis were performed without contrast. A dose lo wering technique was utilized adhering to the principles of ALARA. COMPARISON STUDY: CT abdomen pelvis 10/16/2021 FINDINGS: Calcified granuloma of the basal left lower lobe. No pneumatosis or pneumoperitoneum. Image d inferior cardiac chambers are unremarkable. The unenhanced spleen, pancreas and adrenal glands are unremarkable. Cholecystectomy. Unremarkable liver. Cyst of the right kidney, 1.6 cm. 4 mm calcification of the inferior pole right kidney. There is mild ly decreased right-sided perinephric stranding with persistent right-sided urothelial thickening. Atr ophy with multifocal cortical thinning of the left kidney redemonstrated. Left-sided renal cysts coleman ure up to 5.8 cm. Numerous calculi of the left kidney measure up to 9 mm. A left ureteral stent is in satisfactory positioning. No ureteral calculi identified. There is mildly decreased distention of th e left renal pelvis. Decompressed urinary bladder with mild wall thickening. Hysterectomy. Aorta and IVC are unremarkable. No adenopathy. Moderate sized hiatal hernia. Pill fragment within the distal stomach. No bowel obstruction. Subtotal colectomy with enterocolic anastomosis. No bowel obstruction or bowel wall thickening. Infraumbilica l fat and bowel filled small hernia, diastases of 4.3 cm. Additional smaller periumbilical fat and jeremias wel filled hernia is also noted. Subcutaneous edema of the right anterior abdominal wall with suggest ion of small injection granulomas. Degenerative changes of the spine, pelvis and hips. IMPRESSION: 1. No bowel obstruction or bowel wall thickening. 2. Satisfactory positioning of the left ureteral stent with mildly decreased left-sided pelviectasis. 3. Left-sided renal atrophy with cortical scarring redemonstrated along with numerous left-sided henri l calculi. 4. Decreased right-sided perinephric stranding compared to the prior study with persistent urothelial thickening of the right renal pelvis. Correlate with urinalysis to exclude infection. 5. Small hiatal hernia. 6. Chronic findings as above. ACT 112: Negative or not required by law. The above report was generated using voice recognition software. It may contain grammatical, syntax o r spelling errors. Electronically signed by: Lang Calderon M.D. 11/07/2021 11:38 PM
[2021-11-08] MEDS: HEPARIN SOD 5,000 UNIT/0.5 ML VIAL SQ SCH ×3 (05:14→21:57)
[2021-11-08 07:44] LABS: BUN Creatinine Ratio 23.7 (10-20); Calcium 10.6 mg/dl (8.5-10.1); Creatinine Clr Calc Pharmacy 34.2 ml/min; Est GFR (African American) 39.2 ml/min; Est GFR (Non-African American) 33.8 ml/min; Magnesium 1.7 mg/dl (1.7-2.4); Potassium 4.6 mmol/L (3.5-5.1)
[2021-11-08] MEDS: MAGNESIUM CHLORIDE 64MG DELAYED REL TAB PO SCH ×2 (08:00→21:56)
[2021-11-08] MEDS: PANTOprazole 40 MG TAB PO SCH ×2 (08:00→21:56)
[2021-11-08] MEDS: CEFDINIR 300 MG CAP PO SCH (08:00)
[2021-11-08] MEDS: CHOLECALCIFEROL 1,000 UNITS 25 MCG TAB PO SCH (08:00)
[2021-11-08] MEDS: METOPROLOL SUCC 50MG EXT REL TAB PO SCH (08:00)
[2021-11-08] MEDS: OXcarbazepine 150 MG TABLET PO SCH ×2 (08:01→21:55)
[2021-11-08] MEDS: TAMSULOSIN HCL 0.4 MG CAP PO SCH (08:01)
[2021-11-08] MEDS: dexAMETHasone 6 MG in SYRINGE 0 ML IV SCH (09:13)
[2021-11-08] MEDS: INSULIN ASPART PER UNIT SC SCH ×4 (09:13→22:52)
[2021-11-08] MEDS: HYDROCODONE/ACETAMOPHEN 5/325MG TAB PO PRN ×2 (09:14→21:58)
[2021-11-08] MEDS: LOPERAMIDE HCL 2 MG CAP PO PRN ×3 (09:16→21:54)
--- NOTE | 2021-11-08 17:47 | Hospitalist Progress Note ---
Date of Service November 08, 2021 Assessment & Plan (1) Pneumonia due to 2019 novel coronavirus: Plan: ASSESSMENT AND PLAN: This is a 66-year-old female who was recently in the hospital for pyelonephritis with left obstructive calculus, status post stent placement. Treated with IV antibiotics and also acute metabolic encephalopathy secondary to respiratory acidosis status post intubation. Status post bronchoscopy and did fine and got discharged. Comes because of ongoing nausea, vomiting and found to have a temperature spike and abdominal pain and found to be COVID positive. 1. COVID 19 pneumonia Chronic hypoxic respiratory failure Currently on 2 L of O2 which is her baseline, saturating 98 to 99% Chest x-ray showing bilateral infiltrates consistent with viral pneumonia Respiratory status about the same Continue Decadron 6 mg IV day 9 Continue incentive spirometry No dyspnea on exertion Respiratory status clinically improved significantly 2. Rule out urinary tract infection History of recent left ureteral stent placement, left nephrolithiasis Urine culture: Negative so far Possible partially treated UTI Patient was started on cefepime IV for 5 days then transition to cefdinir on 11/03 cefepime Requested urology reevaluation, recommend KUB to rule out stent migration Recommend as needed tamsulosin, Pyridium as needed for pain 3. Abdominal pain associated with nausea and vomiting: KUB on admission showed no significant migration of the left ureteral stent Tolerated diet Continue to have abdominal pain and nausea CT abd/pelvis showed no bowel obstruction or bowel wall thickening Diarrhea Pt has been having about 5 to 6 episodes of watery diarrhea Possible related to COVID 19 Stool for C. difficile negative Continue monitor electrolytes Hematochezia With left lower quadrant pain History of ileocolonic anastomosis, gastroesophageal valve flap based on colonoscopy and EGD in 2019 History of colon cancer, Status post laparoscopic colectomy, total proctectomy and ileostomy, and ileoproctostomy in 2010. Hemoglobin stable overall Consulted GI no plans for EGD colonoscopy at this point Hypomagnesemia Possible related to diarrhea and poor oral intake Mg 1.9 today Continue monitor electrolytes 4. History of chronic obstructive pulmonary disease and chronic respiratory f ailure: Current on oxygen 1 L with baseline 2L NC Continue her home inhalers. 5. Chronic kidney disease stage III: Creatinine 1.5 creatinine at baseline, 1.4 Continue monitor BMP 6. Diabetes: Insulin sliding scale Pharmacy glycemic control consulted Continue monitor blood sugar 7. History of colon cancer: Status post laparoscopic colectomy, total proctectomy and ileostomy, and ileoproctostomy in 2010. 8. Morbid obesity: Needs counseling. 9. Anemia: Hemoglobin 9.7, remains stable around 8 Active GI bleed unlikely No plans for scoping per GI 10. Hyperlipidemia: On statin. 11. Hypertension: On metoprolol. 12. Deep venous thrombosis prophylaxis:On heparin subcutaneous, monitor closely DISPOSITION: We will discharge once medically stable Admission and Anticipated Discharge Date Admission Date: October 29, 2021 Subjective Patient was seen and examined for follow-up of abdominal pain associated with diarrhea and shortness of breath due to COVID-19 Lying in bed with no acute distress Patient said that diarrhea and abdominal pain improve Currently she saturated well on 1L NC (her baseline 2 L nasal cannula) Denies any chest pain, palpitation, dizziness, and fever Review of Systems Review of Systems: All systems reviewed & are unremarkable except as noted in Subjective Physical Exam Physical Exam: General- No acute distress Head- atraumatic Eyes- PERRL, EOMI, ENT- oropharynx clear Neck- supple, no JVD Lungs-No wheezing, no rales Heart- regular rhythm; no murmur Abdomen- normal bowel sounds, soft, +mild tenderness with deep palpation Extremities- no calf tenderness Neuro- alert, oriented x 3; PERRL, EOMI; no facial palsy; no dysarthria Skin- warm & dry Results & Data Results & Data ([facility]) Vital Signs (Past 12 Hours) Vital Signs Temp Pulse Pulse Resp BP Pulse Ox 11/08/21 15:00 36.5 C 84 18 143/89 H 98 11/08/21 14:56 105 H 11/08/21 11:49 36.8 C 87 18 121/78 98 11/08/21 08:00 36.9 C 97 H 18 119/81 97 11/08/21 07:00 76 11/08/21 06:47 36.6 C 93 H 20 118/80 93
[2021-11-08] MEDS: ATORVASTATIN 40 MG TAB PO SCH (21:56)
[2021-11-08] MEDS: METOPROLOL SUCC 25MG EXT REL TAB PO SCH (21:56)
[2021-11-08] MEDS: CLOPIDOGREL BISULFATE 75 MG TAB PO SCH (21:56)
[2021-11-09] MEDS: HEPARIN SOD 5,000 UNIT/0.5 ML VIAL SQ SCH (06:17)
[2021-11-09] MEDS: HYDROCODONE/ACETAMOPHEN 5/325MG TAB PO PRN (06:23)
[2021-11-09] MEDS: OXcarbazepine 150 MG TABLET PO SCH (08:48)
[2021-11-09] MEDS: MAGNESIUM CHLORIDE 64MG DELAYED REL TAB PO SCH (08:48)
[2021-11-09] MEDS: TAMSULOSIN HCL 0.4 MG CAP PO SCH (08:48)
[2021-11-09] MEDS: PANTOprazole 40 MG TAB PO SCH (08:48)
[2021-11-09] MEDS: METOPROLOL SUCC 50MG EXT REL TAB PO SCH (08:48)
[2021-11-09] MEDS: dexAMETHasone 6 MG in SYRINGE 0 ML IV SCH (09:15)
[2021-11-09] MEDS: INSULIN ASPART PER UNIT SC SCH (09:15)
--- NOTE | 2021-11-09 11:24 | Pharmacy Report ---
Pharmacy Glycemic Short Note 2 - Date of Service November 09, 2021 - Glycemic Short BSG Results (Last 24 hours): 11/08/21 11/08/21 11/08/21 11:45 16:57 19:47 POC Glucose 187 H 195 H 148 H 11/09/21 07:54 POC Glucose 114 H OUTPATIENT ANTIDIABETIC REGIMEN: * Glipizide ER 2.5mg PO PM * HbA1c: 6.1% (10/30/21) ASSESSMENT: 11/09: * Received 11 units of insulin yesterday, all Novolog. BSGs were acceptable: [phone] mg/dL. * Today is day #10 of dexamethasone. Will contact provider regarding if it will be continued beyond this. * Appetite is improving so could see increase in BSGs if steroids continued. May require addition of NPH or tightening of Novolog if this occurs. For now, no changes and continue to monitor. 11/05: * Patient's BSGs yesterday were [phone]. Today's BSGs are 95-176 mg/dL. * Patient received 24 units of bolus insulin yesterday. No basal. * Continue to hold basal. As direct progresses may require some NPH. * Loosened Novolog due to hypoglycemia yesterday. PLAN FOR INPATIENT GLYCEMIC CONTROL: * Hold outpatient oral diabetes medications * Basal insulin * None * Bolus insulin * NovoLog per scale ACHS or Q6hrs while NPO * Goal Range: Low 110 mg/dL - High 140 mg/dL * Correction Factor: 30 mg/dL/unit * Nutritional / Prandial insulin per carb ratio of 1 unit per 8 grams CHO consumed PLAN FOR DISCHARGE: * A1c: 6.1% * This indicates excellent glycemic control as an outpt. If patient reports having episodes of hypoglycemia, may consider switching to a different oral agent, as glipizide may predispose pt to hypoglycemia in the setting of impaired renal function.
--- NOTE | 2021-11-09 13:25 | Discharge Summary ---
Date of Service November 09, 2021 Admission HPI Per Admitting Provider CHIEF COMPLAINT: Nausea, vomiting, COVID-19. HISTORY OF PRESENT ILLNESS: This is a 66-year-old female with past medical history significant for type 2 diabetes, COPD, chronic kidney disease stage III, hypertension, bipolar disorder, chronic respiratory failure on home oxygen 2 liters, history of laparoscopic colectomy total with proctectomy and ileostomy and ileoproctostomy in 2010 for colon cancer, who was recently in the hospital for obstructive pyelonephritis, , obstructing 5 mm left vesicoureteral junction stone, status post cystoscopy and stent placement on 10/12/2021, treated with antibiotics, but during the last admission , the patient had acute metabolic encephalopathy, significant respiratory acidosis and transferred to the ICU, broadened antibiotics with cefepime and vancomycin, but vancomycin discontinued after MRSA swab negative. Repeat CT of abdomen and pelvis is showing left nephroureteral stent in place. Repeat cultures were unremarkable and as she was still acidotic and she was intubated on 10/17/2021. On 10/18/2021, she underwent bronchoscopy. On 10/19/2021, the patient was extubated and also the patient seemed to be improved. During the hospital, her kidney function also w orsened to creatinine to 3.1, and improved to 1.7 and she got discharged home. The patient says since she went home, she is having a lot of nausea, vomiting, not able to eat anything and also had a fever of 100.9, and abdominal pain, which prompted her to come to the ER today and she was tested positive for COVID at this time and also having continuing UTI. The patient lives alone, ambulates with a walker. Could not eat anything because of nausea, vomiting. Denies any headache. No blurred visions, no earache, no runny nose, no sore throat. Has some cough. No chest pain, no shortness of breath. Complains of severe abdominal pain. Normal bowel and bladder movements. Admission Exam Per Admitting Provider GENERAL: The patient is morbidly obese, not in acute distress. VITAL SIGNS: Temperature 36.4, pulse 78, respiratory rate 22, blood pressure 168/101, oxygen 100% on 2 liters. HEENT: Pupils equal, round and reactive to light. Oral mucosa moist. NECK: No JVD, no neck masses. CARDIOVASCULAR: S1 and S2 heard. Regular rate and rhythm. No murmur, no gallop. RESPIRATORY SYSTEM: Normal AP diameter. No accessory muscle use. No wheezing, no crackles. ABDOMEN: Soft, bowel sounds present, nontender, no distention. CENTRAL NERVOUS SYSTEM: Cranial nerves II through XII are grossly intact, nonfocal. EXTREMITIES: No edema, no erythema. Principal Diagnosis COVID 19 pneumonia Chronic hypoxic respiratory failure History of recent left ureteral stent placement, left nephrolithiasis Abdominal pain associated with nausea and vomiting Diarrhea Hematochezia Hypomagnesemia History of chronic obstructive pulmonary disease and chronic respiratory failure : Chronic kidney disease stage III: Diabetes: History of colon cancer: Morbid obesity: Anemia: Hyperlipidemia Hypertension: Discharge Exam General- No acute distress Head- atraumatic Eyes- PERRL, EOMI, ENT- oropharynx clear Neck- supple, no JVD Lungs-No wheezing, no rales Heart- regular rhythm; no murmur Abdomen- normal bowel sounds, soft, +mild tenderness with deep palpation Extremities- no calf tenderness Neuro- alert, oriented x 3; PERRL, EOMI; no facial palsy; no dysarthria Skin- warm & dry Discharge Data Allergies Allergy/AdvReac Type Severity Reaction Status Date / Time salicylates Allergy Severe SHORTNESS Verified 10/29/21 16:28 OF BREATH Iodinated Contrast Media Allergy Intermediate EYES Verified 10/29/21 16:28 SWELLING/Hives amoxicillin [From Augmentin] Allergy Mild Rash Verified 10/29/21 16:28 aspirin Allergy Mild FACIAL Verified 10/29/21 16:28 SWELLING clavulanic acid Allergy Mild Rash Verified 10/29/21 16:28 [From Augmentin] hydromorphone Allergy Mild RASH/ITCHIN Verified 10/29/21 16:28 G fentanyl Allergy itching/felt Verified 10/29/21 16:28 like throat closing meperidine AdvReac Intermediate ITCH Verified 10/29/21 16:28 morphine AdvReac Intermediate ITCH Verified 10/29/21 16:28 tramadol AdvReac Mild itch Verified 10/29/21 16:28 Consultations 10/29/21 20:07 ED Decision to Admit Stat 10/30/21 08:00 Consult Urology Routine 11/01/21 10:49 Consult Gastroenterology Routine Ordered Studies 11/07/21 22:19 CT abd pelvis wo con Routine ABDOMEN AND PELVIS CT WITHOUT CONTRAST CT DOSE: 858.62 mGy.cm HISTORY: Acute generalized abdominal pain with nausea and diarrhea abd pain +nausea/diarrhea TECHNIQUE: Multiaxial CT images of the abdomen and pelvis were performed without contrast. A dose lowering technique was utilized adhering to the principles of ALARA. COMPARISON STUDY: CT abdomen pelvis 10/16/2021 FINDINGS: Calcified granuloma of the basal left lower lobe. No pneumatosis or pneumoperitoneum. Imaged inferior cardiac chambers are unremarkable. The unenhanced spleen, pancreas and adrenal glands are unremarkable. Cholecystectomy. Unremarkable liver. Cyst of the right kidney, 1.6 cm. 4 mm calcification of the inferior pole right kidney. There is mildly decreased right-sided perinephric stranding with persistent right-sided urothelial thickening. Atrophy with multifocal cortical thinning of the left kidney redemonstrated. Left-sided renal cysts measure up to 5.8 cm. Numerous calculi of the left kidney measure up to 9 mm. A left ureteral stent is in satisfactory positioning. No ureteral calculi identified. There is mildly decreased distention of the left renal pelvis. Decompressed urinary bladder with mild wall thickening. Hysterectomy. Aorta and IVC are unremarkable. No adenopathy. Moderate sized hiatal hernia. Pill fragment within the distal stomach. No bowel obstruction. Subtotal colectomy with enterocolic anastomosis. No bowel obstruction or bowel wall thickening. Infraumbilical fat and bowel filled small hernia, diastases of 4.3 cm. Additional smaller periumbilical fat and bowel filled hernia is also noted. Subcutaneous edema of the right anterior abdominal wall with suggestion of small injection granulomas. Degenerative changes of the spine, pelvis and hips. IMPRESSION: 1. No bowel obstruction or bowel wall thickening. 2. Satisfactory positioning of the left ureteral stent with mildly decreased left-sided pelviectasis. 3. Left-sided renal atrophy with cortical scarring redemonstrated along with numerous left-sided renal calculi. 4. Decreased right-sided perinephric stranding compared to the prior study with persistent urothelial thickening of the right renal pelvis. Correlate with urinalysis to exclude infection. 5. Small hiatal hernia. 6. Chronic findings as above. ACT 112: Negative or not required by law. The above report was generated using voice recognition software. It may contain grammatical, syntax or spelling errors. Electronically signed by: Lang Calderon M.D. 11/07/2021 11:38 PM Dictated:11/07/212329 Transcribed: 11/07/212329 XR KUB/Abdomen 1 view CLINICAL HISTORY: r/o left ureteral stent migration TECHNIQUE: 1 view of the abdomen was obtained. Comparison: Comparison is made to chest and abdomen radiographs 10/29/2021 FINDINGS: Left nephroureteral stent is in adequate position. Bilateral nephrolithiasis is seen. Surgical clips are again seen over the right upper quadrant. The osseous structures are grossly unremarkable. The bowel gas pattern is nonobstructive. A moderate amount of stool is noted within the large bowel. IMPRESSION: No significant migration of the left ureteral stent. ACT 112: Negative or not required by law. Electronically signed by: Yuan Jorge M.D. 11/03/2021 1:49 PM Dictated:11/03/211338 Transcribed: 11/03/211338 AP CHEST WITH ABDOMINAL SERIES CLINICAL HISTORY: Fever. Covid. FINDINGS: An AP upright chest radiograph is compared to study dated 10/20/2021. A right internal jugular central venous catheter has been removed from previous. The heart is top normal for projection noting atherosclerotic calcification of the thoracic aorta. There are low lung volumes with dependent atelectasis. There are subtle bilateral airspace opacities, greatest at the right lung base. No large pleural effusion or pneumothorax is seen. The skeletal structures are osteopenic. The bony thorax is grossly intact. Supine and erect abdominal radiographs are correlated with abdominal CT dated 10/16/2021. Cholecystectomy clips are noted. There is a nonobstructed abdominal bowel gas pattern. No evidence of intraperitoneal free air is seen. There a left ureteral stent is in place. No calcifications are seen along the course of the stent. There are numerous stones/fragments project over the lower pole of left kidney which measure up to 6 mm. A 3 mm calcification projects over the right kidney. Suture material is seen in the pelvis. The lumbosacral spine and bony pelvis appear intact. IMPRESSION: 1. Low lung volumes with subtle bilateral airspace opacities. Correlate clinically for evidence of a mild infectious/inflammatory pneumonitis. 2. A left ureteral stent is in place. No calcifications are seen along the course of the stent. 3. Numerous stones/fragments project over the lower pole of left kidney. A single calcification projects over the right kidney. ACT 112: Negative or not required by law. Electronically signed by: Caesar Yoon M.D. 10/29/2021 6:58 PM Dictated:10/29/211853 Transcribed: 10/29/211853 Hospital Course (1) Pneumonia due to 2019 novel coronavirus: ASSESSMENT AND PLAN: This is a 66-year-old female who was recently in the hospital for pyelonephritis with left obstructive calculus, status post stent placement. Treated with IV antibiotics and also acute metabolic encephalopathy secondary to respiratory acidosis status post intubation. Status post bronchoscopy and did fine and got discharged. Comes because of ongoing nausea, vomiting and found to have a temperature spike and abdominal pain and found to be COVID positive. 1. COVID 19 pneumonia Chronic hypoxic respiratory failure Currently on 2 L of O2 which is her baseline, saturating 98 to 99% Chest x-ray showing bilateral infiltrates consistent with viral pneumonia Respiratory status about the same Completed 10 days course of Decadron 6mg Continue incentive spirometry No dyspnea on exertion Respiratory status clinically improved significantly 2. Rule out urinary tract infection History of recent left ureteral stent placement, left nephrolithiasis Urine culture: Negative so far Possible partially treated UTI Patient was started on cefepime IV for 5 days then transition to cefdinir on 11/03 cefepime Requested urology reevaluation, recommend KUB to rule out stent migration Recommend as needed tamsulosin, Pyridium as needed for pain 3. Abdominal pain associated with nausea and vomiting: KUB on admission showed no significant migration of the left ureteral stent Tolerated diet Continue to have abdominal pain and nausea CT abd/pelvis showed no bowel obstruction or bowel wall thickening Diarrhea Pt has been having about 5 to 6 episodes of watery diarrhea Possible related to COVID 19 Stool for C. difficile negative Continue monitor electrolytes Improved significantly Hematochezia With left lower quadrant pain History of ileocolonic anastomosis, gastroesophageal valve flap based on colonoscopy and EGD in 2019 History of colon cancer, Status post laparoscopic colectomy, total proctectomy and ileostomy, and ileoproctostomy in 2010. Hemoglobin stable overall Consulted GI no plans for EGD colonoscopy at this point Hypomagnesemia Possible related to diarrhea and poor oral intake Mg 1.9 Continue monitor electrolytes 4. History of chronic obstructive pulmonary disease and chronic respiratory failure: Current on oxygen 1 L with baseline 2L NC Continue her home inhalers. 5. Chronic kidney disease stage III: Creatinine 1.5 creatinine at baseline, 1.4 Continue monitor BMP 6. Diabetes: Insulin sliding scale Pharmacy glycemic control consulted Continue monitor blood sugar 7. History of colon cancer: Status post laparoscopic colectomy, total proctectomy and ileostomy, and ileoproctostomy in 2010. 8. Morbid obesity: Needs counseling. 9. Anemia: Hemoglobin 9.7, remains stable around 8 Active GI bleed unlikely No plans for scoping per GI 10. Hyperlipidemia: On statin. 11. Hypertension: On metoprolol. 12. Deep venous thrombosis prophylaxis:On heparin subcutaneous, monitor closely DISPOSITION: We will discharge once medically stable Total Time Total Time Spent Total Time Spent (In Minutes): 35 minutes Discharge Plan Discharge Items Patient Disposition: Home - Home Health Services Reason For Visit: ILLNESS Discharge Diagnosis: COVID 19 pneumonia Chronic hypoxic respiratory failure History of recent left ureteral stent placement, left nephrolithiasis Abdominal pain associated with nausea and vomiting Diarrhea Hematochezia Hypomagnesemia History of chronic obstructive pulmonary disease and chronic respiratory failure : Chronic kidney disease stage III: Diabetes: History of colon cancer: Morbid obesity: Anemia: Hyperlipidemia Hypertension: Activity: Resume your previous activity Non-emergency contact: Primary Care Provider Call non-emergency contact if: you have any medication questions Follow-up/Referrals: Lo Chand DO [Primary Care Provider] - (Date & Time 11/17/2021 11:10 AM Provider Lo Chand DO Department [facility] ) Diet: Heart Healthy Addtl Attending Provider Instructions: Follow up with your primary care provider Dr. Blanchard on 11/17/2021 @ 11:10 AM at the [facility] Follow up with urology for the stent management Follow up with gastroenterology for outpatient screening colonoscopy Continue 2L oxygen supplement to keep oxygen saturation above 92% Seek medical attention if your symptoms worsening Continue follow up your blood sugar and bring your blood sugar log at your next appointment Check CBC and BMP in 1-2 weeks to monitor hemoglobin and renal function respectively fall precaution Continue incentive spirometry and flutter valve Continue social distance and to wear mask Home Isolation COVID-19 Instructions The following information about Home Isolation is from the CDC Website: https://www.cdc.gov/coronavirus/2019-ncov/hcp/ngdhevrh-zfxfofj-hwlhus.html Stay home except to get medical care People who are mildly ill with COVID-19 are able to isolate at home during their illness. You should restrict activities outside your home, except for getting medical care. Do not go to work, school, or public areas. Avoid using public transportation, ride-sharing, or taxis. Separate yourself from other people and animals in your home People: As much as possible, you should stay in a specific room and away from other people in your home. Also, you should use a separate bathroom, if available. Animals: You should restrict contact with pets and other animals while you are sick with COVID-19, just like you would around other people. Although there have not been reports of pets or other animals becoming sick with COVID-19, it is still recommended that people sick with COVID-19 limit contact with animals until more information is known about the virus. When possible, have another member of your household care for your animals while you are sick. If you are sick with COVID-19, avoid contact with your pet, including petting, snuggling, being kissed or licked, and sharing food. If you must care for your pet or be ar ound animals while you are sick, wash your hands before and after you interact with pets and wear a face mask. Call ahead before visiting your doctor If you have a medical appointment, call the healthcare provider and tell them that you have or may have COVID-19. This will help the healthcare providers office take steps to keep other people from getting infected or exposed. Wear a face mask You should wear a face mask when you are around other people (e.g., sharing a room or vehicle) or pets and before you enter a healthcare providers office. If you are not able to wear a face mask (for example, because it causes trouble breathing), then people who live with you should not stay in the same room with you, or they should wear a face mask if they enter your room. Cover your coughs and sneezes Cover your mouth and nose with a tissue when you cough or sneeze. Throw used tissues in a lined trash can. Immediately wash your hands with soap and water for at least 20 seconds or, if soap and water are not available, clean your hands with an alcohol-based hand sorter upholstery parts that contains at least 60% alcohol. Clean your hands often Wash your hands often with soap and water for at least 20 seconds, especially after blowing your nose, coughing, or sneezing; going to the bathroom; and before eating or preparing food. If soap and water are not readily available, use an alcohol-based hand sorter upholstery parts with at least 60% alcohol, covering all surfaces of your hands and rubbing them together until they feel dry. Soap and water are the best option if hands are visibly dirty. Avoid touching your eyes, nose, and mouth with unwashed hands. Avoid sharing personal household items You should not share dishes, drinking glasses, cups, eating utensils, towels, or bedding with other people or pets in your home. After using these items, they should be washed thoroughly with soap and water. Clean all high-touch surfaces everyday High touch surfaces include counters, tabletops, doorknobs, bathroom fixtures, toilets, phones, keyboards, tablets, and bedside tables. Also, clean any surfaces that may have blood, stool, or body fluids on them. Use a household cleaning spray or wipe, according to the label instructions. Labels contain instructions for safe and effective use of the cleaning product including precautions you should take when applying the product, such as wearing gloves and making sure you have good ventilation during use of the product. Monitor your symptoms Seek prompt medical attention if your illness is worsening (e.g., difficulty breathing).Beforeseeking care, call your healthcare provider and tell them that you have, or are being evaluated for, COVID-19. Put on a face mask before you enter the facility. These steps will help the healthcare providers office to keep other people in the office or waiting room from getting infected or exposed. Ask your healthcare provider to call the local or [place] health health department. Persons who are placed under active monitoring or facilitated self- monitoring should follow instructions provided by their local health department or occupational health professionals, as appropriate. When working with your local health department check their available hours. If you have a medical emergency and need to call 911, notify the dispatch personnel that you have, or are being evaluated for COVID-19. If possible, put on a face mask before emergency medical services arrive. Discontinuing home isolation Patients with confirmed COVID-19 should remain under home isolation precautions until the risk of secondary transmission to others is thought to be low. The decision to discontinue home isolation precautions should be made on a obru-re-omee basis, in consultation with healthcare providers and state and local health departments. Coronavirus disease 2019 (COVID-19) is a virus that causes a respiratory illness. It is caused by a coronavirus called 2019 novel coronavirus (2019- nCoV). There are many types of coronavirus. Coronaviruses are a very common cause of bronchitis. They may sometimes cause lung infection(pneumonia). Symptoms can range from mild to severe respiratory illness. These viruses are also foundin some animals. COVID-19 was first found in people in [facility], in late 2019. In 2020, several cases of COVID-19 have been confirmed in the [place] Public health officials are working to find the source. How the virus spreads is not yet fully known. It may be spread through droplets of fluid that a person coughs or sneezes into the air. It may be spread if you touch a surface with virus on it, such as a handle or object, and then touch your mouth. What are the symptoms of COVID-19? Some people have no symptoms or mild symptoms. Symptoms may appear 2 to 14 days after contact with the virus. Symptoms can include: Fever Coughing Trouble breathing What are possible complications from COVID-19? In many cases, this virus can cause infection (pneumonia) in both lungs. In some cases, this can cause . How is COVID-19 diagnosed? Your healthcare provider will ask about your symptoms. He or she will also ask about your recent travel and contact with sick people. Testing for the virus is only done through the CDC. If yourhealthcare provider thinks you may have COVID- 19, he or she will work with your local health department and the CDC on testing. Follow all instructions from your healthcare provider. COVID-19 is diagnosed by: Nasal and throat swab. A cotton-tipped swab is wiped inside your nose or throat. This is done to check for viruses in your nasal mucus. Sputum culture. A small sample of mucus coughed from your lungs (sputum) is collected if you have a cough. It is checked for the virus. How is COVID-19 treated? There is currently no medicine to treat the virus. Treatment is done to help your body while it fights the virus. This is known as supportive care. Supportive care may include: Pain medicine. These include acetaminophen and ibuprofen. They are used to help ease pain and reduce fever. Bed rest. This helps your body fight the illness. For severe illness, you may need to stay in the hospital. Care during severe illness may include: IV (intravenous) fluids.These are given through a vein to help keep your body hydrated. Oxygen. Supplemental oxygen or ventilation with a breathing machine (ventilator) may be given. This is done to keep enough oxygen in your body. Are you at risk for COVID-19? If youve been to a place where people have been sick with this virus, you are at risk for infection. You are at risk if you: Recently traveled to an affected area Had contact with a sick person who recently traveled to this area Had contact with a person who was diagnosed with COVID-19 How can COVID-19 be prevented? There is no vaccine yet. The best prevention is to not have contact with the virus. The CDC advises that people should not travel to areas where there are COVID-19 outbreaks right now for any reason that is not urgent. To help prevent spreading the infection, wash your hands often, or use an alcohol-basedhand sorter upholstery parts. If you are in an area with COVID-19: Wash your hands often. Or use an alcohol-based hand sorter upholstery parts often. Only touch your eyes, nose, or mouth with clean hands. Dont have contact with people who are sick. Follow local instructions about being in public. For example, you may be told to not use public transport for a period of time. Stay away from markets that have live or animals. Wash your hands after touching any animals. Don't touch animals that may be sick. Dont share eating or drinking tools with sick people. Dont kiss someone who is sick. Clean surfaces often with disinfectant. If you were in an area with COVID-19 in the last 14 days: Call your healthcare provider. He or she can talk with local health staff to see what action may be needed. Follow all instructions from your provider. Take your temperature every morning and evening for at least 14 days. This is to check for fever. Keep a record of the readings. Keep watch for symptoms of the virus. Tell your provider right away if you have symptoms. If you were in an area with COVID-19 and have a fever or other symptoms: Dont panic. Keep in mind that other illnesses can cause similar symptoms. Stay away from work, school, and public places. Limit physical contact with family members. Don't kiss anyone or share eating or drinking utensils. Clean surfaces you touch with disinfectant. This is to help prevent the virus from spreading. Call your healthcare provider. Explain that you have been exposed to COVID-19 and have symptoms. Do this before going to any hospital. Wait for instructions. Keep in mind that healthcare staff may wear protective equipment such as masks , gowns, gloves, and eye protection. You may be put in a separate room. This is to prevent the possible virus from spreading. Tell the healthcare staff about recent travel. This includes local travel on public transport. Staff may need to find other people you have been in contact with. Follow all instructions the healthcare staff give you. If you have been diagnosed with COVID-19 Follow all instructions from your healthcare provider. Dont leave your home, except to get medical care. Call your healthcare providers office before going. They can prepare and give you instructions. This will help prevent the virus from spreading. Dont go to work, school, or public areas. Dont use public transport or taxis. Stay away from other people in your home. Have them wear face masks around you. Dont share household items or food. Wear a face mask if you can. This includes at home or in a medical facility. Cover your face with a tissue when you cough or sneeze. Throw the tissue away. Wash your hands. Wash your hands often. Caregivers should: Follow all instructions from healthcare staff. Wear a face mask and protective clothing as advised. Wash hands often. Keep track of the sick persons symptoms. Clean surfaces, fabrics, and laundry thoroughly. Keep other people away from the sick person. When to call your healthcare provider Call your healthcare provider: If youve recently traveled and have symptoms If you have been diagnosed with COVID-19 and your symptoms are worse To learn more To find out more about COVID-19, visit the CDC website at www.cdc.gov/coronavirus/2019-ncov/index.html. [employer]. [address] [place] [address]. All rights reserved. This information is not intended as a substitute for professional medical care. Always follow your healthcare professional's instructions. This information has been adapted from [employer] Pending Studies at Discharge: No Stand-Alone Forms: [employer], Smoking Cessation Medications and DC Order Prescriptions: New loperamide 2 mg Capsule 2 mg PO TID PRN (Reason: diarrhea) Qty: 30 RF: 0 tamsulosin 0.4 mg Capsule 0.4 mg PO QAM 30 Days Qty: 30 RF: 0 phenazopyridine [Pyridium] 100 mg Tablet 100 mg PO TID PRN (Reason: bladder spasms) Qty: 30 RF: 0 Continued ondansetron 4 mg tablet,disintegrating 4 mg PO Q8H PRN (Reason: nausea and vomiting) Qty: 10 RF: 0 metoprolol succinate 50 mg tablet extended release 24 hr 50 mg PO QAM RF: 0 Trelegy Ellipta 100-62.5-25 mcg blister with device 1 inh inhalation DAILY PRN (Reason: Shortness Of Breath) RF: 0 metoprolol succinate 25 mg tablet extended release 24 hr 25 mg PO PM RF: 0 albuterol sulfate 90 mcg/actuation Hfa Aerosol Inhaler 2 puff INHALATION Q4H PRN (Reason: Shortness Of Breath) RF: 0 magnesium oxide 400 mg magnesium Tablet 400 mg PO HS RF: 0 atorvastatin [Lipitor] 40 mg Tablet 40 mg PO QPM RF: 0 clopidogrel [Plavix] 75 mg Tablet 75 mg PO QPM RF: 0 pantoprazole [Protonix] 40 mg Tablet,Delayed Release (Dr/Ec) 40 mg PO BID RF: 0 riboflavin (vitamin B2) 400 mg Tablet 400 mg PO QPM RF: 0 cholecalciferol (vitamin D3) [Vitamin D3] 2,000 unit Capsule 2,000 unit PO QAM RF: 0 oxcarbazepine 300 mg tablet 300 mg PO BID RF: 0 acetaminophen [Tylenol Extra Strength] 500 mg Tablet 1,000 mg PO AMHS RF: 0 glipizide [Glucotrol XL] 2.5 mg tablet extended release 24hr 2.5 mg PO PM RF: 0 Discharge Orders: Discharge Order (Routine); Ordered 11/09/21 Ordered By: Yesica Garza/Other Patient Handouts: Managing Type 2 Diabetes Admission Data Admit Date/Time: 10/29/21 23:05 Attending Provider: Yesica Grande Admit Provider: He Stack Primary Care Provider: Lo Chand Other Providers: He Stack ; Joshua Phillips ; Mumtaz Chamberlain ; Javi Esquivel ; Radha Castellano ; Rajan Adam ; Dedra Mcdowell ; Kyleigh Enamorado ; Radha Greenberg ; Ra Mullins ; Drake Buenrostro ; Rita Hines ; Guillermina Greenberg ; Rosales Strong ; Chris Brice ; Pedro Luis Juarez ; [facility] ; Luis A Camejo Other Interventions: Discharge Summary Assessment (RN) Last Done: 11/09/21 11:40
== END 2021-11-09 12:40 | disposition home health service (06) | DRG 177 ==
LOC: ED 12:34 → SUATTDRO 23:05 → EDINP 23:05 → 2N 10-30 01:27

== ENCOUNTER 2021-11-17 14:26 | Inpatient (IN) ==
[2021-11-17 15:01] LABS: Appearance Urine Turbid (Clear); Color Urine Orange; Specific Gravity Urine 1.013 (1.000-1.030)
[2021-11-17 15:04] LABS: Bacteria Urine 1+ (Negative); WBC Urine >30 /hpf (0-5)
[2021-11-17 16:43] LABS: Alanine Aminotransferase 28 U/L (7-52); Albumin Globulin Ratio 1.1 (0.9-2); Albumin Level 4.3 gm/dl (3.4-5.0); Alkaline Phosphatase 105 U/L (34-104); BUN Creatinine Ratio 14.4 (10-20); Bilirubin,Total 0.5 mg/dl (0.2-1.0); Blood Urea Nitrogen 28 mg/dl (6-23); Carbon Dioxide 18 mmol/L (21-32); Chloride 106 mmol/L (98-107); Est GFR (African American) 30.1 ml/min; Globulin 3.9 gm/dl (2.5-4.0); Glucose 128 mg/dl (70-99(Fasting)); Lipase 84 U/L (11-82); Total Protein 8.2 gm/dl (6.0-8.3)
[2021-11-17 20:25] LABS: Basophils # (auto) 0.03 K/uL (0-0.2); Basophils % (auto) 0.2 %; Eosinophils % (auto) 4.9 %; Hematocrit (blood only) 36.7 % (37-47); Hemoglobin 11.2 g/dL (12.0-16.0); Immature Granulocytes # (auto) 0.09 K/uL (0.00-0.02); Immature Granulocytes % (auto) 0.7 %; Lymphocytes # (auto) 2.27 K/uL (1.2-3.4); Lymphocytes % (auto) 18.5 %; Mean Corpuscular Hemoglobin 29.3 pg (25-34); Mean Corpuscular Hgb Conc 30.5 g/dL (32-36); Mean Corpuscular Volume 96.1 fL (80-100); Mean Platelet Volume 10.9 fL (7.4-10.4); Monocytes # (auto) 1.21 K/uL (0.11-0.59); Monocytes % (auto) 9.9 %; Neutrophils # (auto) 8.05 K/uL (1.4-6.5); Neutrophils % (auto) 65.8 %; Platelet Count 269 K/uL (130-400); RDW Standard Deviation 49.3 fL (36.4-46.3); Red Blood Count 3.82 M/uL (4.2-5.4); White Blood Count 12.25 K/uL (4.8-10.8)
--- NOTE | 2021-11-17 20:30 | Emergency Department Note ---
Impression & Plan Sepsis, Metabolic acidosis, Chronic respiratory failure with hypoxia, Acute dehydration, Acute UTI ED Provider Note NAME: NAYELI GUERRERO AGE: 66 SEX: F : 1955 ARRIVES VIA: Ambulance INFORMANT: Patient, ED PROVIDER(S): Skip Damico MD Chief Complaint: Abdominal pain, dysuria HPI: Patient does present due to concern for left-sided flank pain. The patient does have a known history of type 2 diabetes COPD CKD hypertension bipolar disorder with chronic respiratory failure on home oxygen 2 L. Patient states that she has had abdominal pain ever since that she left the hospital at the end of October. The patient did have a complicated hospital stay where the patient did have an obstructing 5 mm left vesicoureteral junction stone status post cystoscopy and stent placement on October 12 but during that admission the patient was acutely encephalopathic significant respiratory acidosis and the pa tient required intubation on October 17. Patient was extubated 2 days later. The patient had improvement in her kidney function from a creatinine 3.1-1.7. Patient states that her primary concern is dysuria as well as left-sided flank pain. Patient's had nausea but no vomiting. The patient does complain of chronic shortness of breath. Patient has any fevers or chills. Patient states her symptoms are are acute on chronic but have worsened. Patient describes it as sharp and nonradiating. The patient also complains of some suprapubic discomfort and associated dysuria. ROS: See HPI for pertinent positives and negatives. A total of 10 systems were reviewed and otherwise negative. Past medical history: See below Surgical history: See below Social history: See below Physical Exam: GENERAL: Appears older than stated age, nasal cannula in place. EYE EXAM: Normal conjunctiva. PERRL, no anisocoria and EOM's grossly intact w/o pain. OROPHARYNX: Dry mucus membranes. Grossly normal dentition. NECK: Supple, no nuchal rigidity, no adenopathy, non-tender. No signs of meningismus. LUNGS: Clear to auscultation. Normal chest wall mechanics. HEART: Tachycardic and regular, no MRG. ABDOMEN: Abdomen soft, left-sided abdominal as well as suprapubic discomfort without overlying skin changes normo-active bowel sounds, no masses, no rebound or guarding. BACK: No CVA TTP. SKIN: No rashes and no bruising. UPPER EXTREMITIES: Upper extremities are grossly normal. LOWER EXTREMITIES: Grossly normal, no edema. NEURO EXAM: A&O x3, cranial nerves II-XII grossly intact, normal speech, moves all 4 extremities on command w/o issue. Differential diagnoses: Appendicitis, ovarian cyst, ovarian torsion, ectopic , TOA, PID, infections, diverticulitis, UTI, obstruction, mesenteric ischemia, aortic pathology, inflammatory bowel disease, renal colic, PUD, pancreatitis, biliary pathology, hernia, volvulus, constipation, as well as other pathologies. Course: Patient was seen and evaluated the bedside. Full history physical exam was performed. Imaging Studies: 1 view chest x-ray Chronic scarring. Chest x-ray appears improved from comparison completed on October 29 patient has improved aeration of the lungs COVID opacities appear improved. No obvious pneumonia pneumothorax or pleural effusion See Below Cardiac monitoring: An order was placed for continuous cardiac monitoring. The monitor shows a rate of 105 with tachycardic and regular rhythm. MDM: Patient was seen due to concern for chronic abdominal pain and dysuria with a known history of significant sepsis and acidemia requiring intubation and blood pressure support. Blood work is obtained along with cultures. Patient was ordered antibiotics empirically. Patient's blood work shows a white count 12 with a hemoglobin 11.2. Platelet count is unremarkable. Kidney function at virtual baseline. Mild acidemia noted with a pH of 7.3 and bicarb of 18. The patient was given a liter of fluids but was somewhat restricted given her history of CHF. The patient's urinalysis does show the possibility infection. Covid negative. Patient's chest x-ray shows improvement. The patient CT shows hiatal hernia and patient does have some renal cysts. Given the patient's prior history with acidemia that slightly present today given tachycardia white count and possible source of UTI I did speak with the on-call hospitalist Dr. Stack and the patient was admitted to the medicine service. Patient's lactate is normal. Of note the patient had initially been ordered 1500 but was given a liter and then subsequently the patient was placed on some maintenance fluids to ensure that the patient's IV site did not infiltrate given that she was a difficult IV stick. Past Med/Surg History Medical History Acute UTI (urinary tract infection) has presently per pt Anxiety Asthma well controlled per pt, rare inh use CHF (congestive heart failure) follows with Dr. Singh Chronic back pain Chronic headaches Chronic renal insufficiency stage 3, following with [facility] nephrology ([place]) Chronic respiratory failure with hypoxia Was on home oxygen in the past but no longer using at this time CKD (chronic kidney disease) COPD (chronic obstructive pulmonary disease) Deep vein thrombosis LLE - COULD NOT RECALL DATE - REPORTS SHE WAS TREATED AT [facility] W/ BLOOD THINNERS Depression Diabetes mellitus, type 2 GERD (gastroesophageal reflux disease) History of colon cancer 2012 S/P BOWEL RESECTION. History of COVID-27 Sep 2020 HTN (hypertension) Hyperlipidemia Mood disorder Morbid obesity with BMI of 40.0-44.9, adult Myocardial Infarction 06/2016--> [facility] -- CARDIAC CATH --> normal coronary anatomy without coronary obstruction but Plavix started per [facility] discharge summary On anticoagulant therapy plavix daily CALI (obstructive sleep apnea) Poor historian Seizure Pt states "i think i had them a long time ago". no other information. No hx of seizures noted in records Sinus tachycardia Follows with cardio Surgical History H/O hand surgery RIGHT History of appendectomy History of bilateral cataract extraction History of blepharoplasty History of cardiac cath 03/2018 - [place] - DENIES STENTS/ANGIOPLASTY - [facility] - FOLLOWS W/ DR. SINGH History of closure of ileostomy History of colectomy due to colon cancer History of colonoscopy History of cystoscopy History of esophageal dilatation History of esophagogastroduodenoscopy (EGD) History of hysterectomy History of kidney surgery at age 9 yrs "something was wrong and had to fix it" History of lithotripsy History of tooth extraction History of total abdominal hysterectomy and bilateral salpingo-oophorectomy Hx of cholecystectomy Family History Other Breast cancer Social History Smoking Status: Never smoker Second Hand Exposure: No; Hx Alcohol Use: No Hx Substance Use: No Preferred Language: Yoruba Communication Ability: Effective Publishing Manager Required: No Beliefs That Will Affect Care: None marital status: Current Living Situation: Alone Current Living Situation Comment: [facility] Feels Safe at Home: Yes Assistive Devices: Oxygen - Continuous Allergies Allergies Allergy/AdvReac Type Severity Reaction Status Date / Time fentanyl Allergy Severe itching/felt Verified 11/17/21 20:25 like throat closing salicylates Allergy Severe SHORTNESS Verified 11/17/21 20:25 OF BREATH Iodinated Contrast Media Allergy Intermediate EYES Verified 11/17/21 20:25 SWELLING/Hives amoxicillin [From Augmentin] Allergy Mild Rash Verified 11/17/21 20:25 aspirin Allergy Mild FACIAL Verified 11/17/21 20:25 SWELLING clavulanic acid Allergy Mild Rash Verified 11/17/21 20:25 [From Augmentin] hydromorphone Allergy Mild RASH/ITCHIN Verified 11/17/21 20:25 G meperidine AdvReac Intermediate ITCH Verified 11/17/21 20:25 morphine AdvReac Intermediate ITCH Verified 11/17/21 20:25 tramadol AdvReac Mild itch Verified 11/17/21 20:25 Home Meds Home Medications Medication Instructions Recorded Confirmed atorvastatin 40 mg tablet (Lipitor) 40 mg PO QPM 07/12/18 11/17/21 clopidogrel 75 mg tablet (Plavix) 75 mg PO QPM 07/12/18 11/17/21 pantoprazole 40 mg tablet,delayed 40 mg PO BID 07/12/18 11/17/21 release (Protonix) riboflavin (vitamin B2) 400 mg 400 mg PO QPM 07/12/18 11/17/21 tablet cholecalciferol (vitamin D3) 50 2,000 unit PO QAM 05/16/19 11/17/21 mcg (2,000 unit) capsule (Vitamin D3) albuterol sulfate 90 mcg/actuation 2 puff INHALATION Q4H PRN 07/21/19 11/17/21 aerosol inhaler magnesium oxide 400 mg PO HS 10/05/19 11/17/21 fluticasone fur. 100 mcg-umeclid 1 inh INHALATION DAILY PRN 12/11/20 11/17/21 62.5 mcg-vilant 25 mcg inhalat.powder (Trelegy Ellipta) metoprolol succinate 25 mg 25 mg PO PM tab 12/11/20 11/17/21 tablet,extended release 24 hr metoprolol succinate 50 mg 50 mg PO QAM 12/11/20 11/17/21 tablet,extended release 24 hr glipizide 2.5 mg tablet, extended 2.5 mg PO PM 04/29/21 11/17/21 release 24 hr (Glucotrol XL) acetaminophen 500 mg tablet 1,000 mg PO AMHS 10/11/21 11/17/21 (Tylenol Extra Strength) oxcarbazepine 300 mg tablet 300 mg PO BID 10/11/21 11/17/21 Previous Rx's Medication Instructions Recorded ondansetron 4 mg disintegrating 4 mg PO Q8H PRN #10 tab 06/02/21 tablet loperamide 2 mg capsule 2 mg PO TID PRN #30 cap 11/09/21 phenazopyridine 100 mg tablet 100 mg PO TID PRN #30 tab 11/09/21 (Pyridium) tamsulosin 0.4 mg capsule 0.4 mg PO QAM 30 Days #30 cap 11/09/21 Results & Data (ED) Vital Signs Vital Signs - 24 hr 11/17/21 14:31 11/17/21 20:03 11/17/21 20:30 Temperature 36.7 C Temperature Source Temporal Artery Scan Pulse Rate 90 119 H 126 H Pulse Rate [Apical] Pulse Rate from SpO2 Sensor Pulse Rhythm Regular Pulse Rhythm [Apical] Pulse Strength Normal Pulse Strength [Apical] Respiratory Rate 20 28 H 19 Respiratory Effort / Characteristics Non-Labored Spontaneous Respiratory Depth Normal Respiratory Pattern Regular Blood Pressure 133/85 107/70 Blood Pressure [Right Arm] Blood Pressure Mean 101 82 Blood Pressure Mean [Right Arm] Blood Pressure Position Sitting Blood Pressure Position [Right Arm] Pulse Oximetry 97 97 100 Oxygen Delivery Method Room Air Nasal Cannula Nasal Cannula Oxygen Flow Rate 2 2 Sepsis Recent Fever Within 48 Hours No Sepsis New/Unexplained Change in Mental Status N/A Sepsis Action Taken by Nursing No Action Required 11/17/21 21:00 11/17/21 21:30 11/17/21 21:49 Temperature Temperature Source Pulse Rate 117 H 120 H 119 H Pulse Rate [Apical] Pulse Rate from SpO2 Sensor 117 H Pulse Rhythm Pulse Rhythm [Apical] Pulse Strength Pulse Strength [Apical] Respiratory Rate 18 20 26 H Respiratory Effort / Characteristics Respiratory Depth Respiratory Pattern Blood Pressure 135/88 Blood Pressure [Right Arm] Blood Pressure Mean 103 Blood Pressure Mean [Right Arm] Blood Pressure Position Blood Pressure Position [Right Arm] Pulse Oximetry 94 97 98 Oxygen Delivery Method Nasal Cannula Nasal Cannula Nasal Cannula Oxygen Flow Rate 2 2 2 Sepsis Recent Fever Within 48 Hours Sepsis New/Unexplained Change in Mental Status Sepsis Action Taken by Nursing 11/17/21 22:00 11/17/21 23:31 Temperature Temperature Source Pulse Rate 112 H Pulse Rate [Apical] 116 H Pulse Rate from SpO2 Sensor 112 H Pulse Rhythm Pulse Rhythm [Apical] Regular Pulse Strength Pulse Strength [Apical] Normal Respiratory Rate 25 H 18 Respiratory Effort / Characteristics Non-Labored Spontaneous Respiratory Depth Normal Respiratory Pattern Regular Blood Pressure 122/81 Blood Pressure [Right Arm] 109/79 Blood Pressure Mean 94 Blood Pressure Mean [Right Arm] 89 Blood Pressure Position Blood Pressure Position [Right Arm] Semi-fowlers Pulse Oximetry 100 99 Oxygen Delivery Method Nasal Cannula Nasal Cannula Oxygen Flow Rate 2 2 Sepsis Recent Fever Within 48 Hours Sepsis New/Unexplained Change in Mental Status Sepsis Action Taken by Detention Medications Current Medication List: was personally reviewed by me Laboratory Data Attestation: I reviewed the patient's lab results. Result diagrams: 11/17/21 20:07 11/17/21 20:07 Lab Results 11/17/21 11/17/21 11/17/21 Range/Units 14:30 16:02 20:07 WBC 12.25 H (4.8-10.8) K/uL RBC 3.82 L (4.2-5.4) M/uL Hgb 11.2 L (12.0-16.0) g/dL Hct 36.7 L (37-47) % MCV 96.1 (80-100) fL MCH 29.3 (25-34) pg MCHC 30.5 L (32-36) g/dL RDW Std Deviation 49.3 H (36.4-46.3) fL RDW Coeff of Teresa 14.0 (11.5-14.5) % Plt Count 269 (130-400) K/uL MPV 10.9 H (7.4-10.4) fL Immature Gran % (Auto) 0.7 % Neut % (Auto) 65.8 % Lymph % (Auto) 18.5 % [place] % (Auto) 9.9 % Eos % (Auto) 4.9 % Baso % (Auto) 0.2 % Neut # (Auto) 8.05 H (1.4-6.5) K/uL Lymph # (Auto) 2.27 (1.2-3.4) K/uL [place] # (Auto) 1.21 H (0.11-0.59) K/uL Eos # (Auto) 0.60 H (0-0.5) K/uL Baso # (Auto) 0.03 (0-0.2) K/uL Immature Gran # (Auto) 0.09 H (0.00-0.02) K/uL ABG pH ABG pCO2 ABG pO2 ABG HCO3 ABG O2 Saturation ABG Base Excess [place] Test VBG pH VBG pCO2 VBG pO2 VBG HCO3 VBG O2 Saturation VBG Base Excess Barometric Pressure Oxygen Given Sodium (136-145) mmol/L Potassium (3.5-5.1) mmol/L Chloride 106 (98-107) mmol/L Carbon Dioxide 18 L (21-32) mmol/L Anion Gap TNP BUN 28 H (6-23) mg/dl Creatinine 1.94 H (0.6-1.2) mg/dl Est Cr Clr Drug Dosing Not Reportable Est GFR ( Amer) 30.1 ml/min Est GFR (Non-Af Amer) 26.0 ml/min BUN/Creatinine Ratio 14.4 (10-20) Glucose 128 H (70-99(Fasting)) mg/dl Lactate (0.4-2.0) mmol/L Calcium 10.0 (8.5-10.1) mg/dl Total Bilirubin 0.5 (0.2-1.0) mg/dl AST (13-39) U/L ALT 28 (7-52) U/L Alkaline Phosphatase 105 H (34-104) U/L Total Protein 8.2 (6.0-8.3) gm/dl Albumin 4.3 (3.4-5.0) gm/dl Globulin 3.9 (2.5-4.0) gm/dl Albumin/Globulin Ratio 1.1 (0.9-2) Lipase 84 H (11-82) U/L Urine Color [place] Urine Appearance Turbid A (Clear) Urine pH (4.5-7.5) Ur Specific [place] 1.013 (1.000-1.030) Urine Protein (Negative) Urine Glucose (UA) (Negative) Urine Ketones (Negative) Urine Blood (Negative) Urine Nitrite (Negative) Urine Bilirubin (Negative) Urine Urobilinogen (Negative) Ur Leukocyte Esterase (Negative) Urine RBC 5-10 H (0-4) /hpf Urine WBC >30 H (0-5) /hpf Ur Epithelial Cells 5-10 H (0-5) /lpf Urine Bacteria 1+ H (Negative) SARS-CoV-2, RNA, NAAT (NEGATIVE) 11/17/21 11/17/21 11/17/21 Range/Units 20:07 21:36 23:02 WBC (4.8-10.8) K/uL RBC (4.2-5.4) M/uL Hgb (12.0-16.0) g/dL Hct (37-47) % MCV (80-100) fL MCH (25-34) pg MCHC (32-36) g/dL RDW Std Deviation (36.4-46.3) fL RDW Coeff of Teresa (11.5-14.5) % Plt Count (130-400) K/uL MPV (7.4-10.4) fL Immature Gran % (Auto) % Neut % (Auto) % Lymph % (Auto) % [place] % (Auto) % Eos % (Auto) % Baso % (Auto) % Neut # (Auto) (1.4-6.5) K/uL Lymph # (Auto) (1.2-3.4) K/uL [place] # (Auto) (0.11-0.59) K/uL Eos # (Auto) (0-0.5) K/uL Baso # (Auto) (0-0.2) K/uL Immature Gran # (Auto) (0.00-0.02) K/uL ABG pH ABG pCO2 ABG pO2 ABG HCO3 ABG O2 Saturation ABG Base Excess [place] Test VBG pH Cancelled VBG pCO2 Cancelled VBG pO2 Cancelled VBG HCO3 Cancelled VBG O2 Saturation Cancelled VBG Base Excess Cancelled Barometric Pressure Cancelled Oxygen Given Sodium 137 (136-145) mmol/L Potassium 4.5 (3.5-5.1) mmol/L Chloride (98-107) mmol/L Carbon Dioxide (21-32) mmol/L Anion Gap BUN (6-23) mg/dl Creatinine (0.6-1.2) mg/dl Est Cr Clr Drug Dosing Est GFR ( Amer) ml/min Est GFR (Non-Af Amer) ml/min BUN/Creatinine Ratio (10-20) Glucose (70-99(Fasting)) mg/dl Lactate 1.7 (0.4-2.0) mmol/L Calcium (8.5-10.1) mg/dl Total Bilirubin (0.2-1.0) mg/dl AST 15 (13-39) U/L ALT (7-52) U/L Alkaline Phosphatase (34-104) U/L Total Protein (6.0-8.3) gm/dl Albumin (3.4-5.0) gm/dl Globulin (2.5-4.0) gm/dl Albumin/Globulin Ratio (0.9-2) Lipase (11-82) U/L Urine Color Urine Appearance (Clear) Urine pH (4.5-7.5) Ur Specific [place] (1.000-1.030) Urine Protein (Negative) Urine Glucose (UA) (Negative) Urine Ketones (Negative) Urine Blood (Negative) Urine Nitrite (Negative) Urine Bilirubin (Negative) Urine Urobilinogen (Negative) Ur Leukocyte Esterase (Negative) Urine RBC (0-4) /hpf Urine WBC (0-5) /hpf Ur Epithelial Cells (0-5) /lpf Urine Bacteria (Negative) SARS-CoV-2, RNA, NAAT (NEGATIVE) 11/17/21 11/17/21 11/17/21 Range/Units 23:02 23:02 23:50 WBC (4.8-10.8) K/uL RBC (4.2-5.4) M/uL Hgb (12.0-16.0) g/dL Hct (37-47) % MCV (80-100) fL MCH (25-34) pg MCHC (32-36) g/dL RDW Std Deviation (36.4-46.3) fL RDW Coeff of Teresa (11.5-14.5) % Plt Count (130-400) K/uL MPV (7.4-10.4) fL Immature Gran % (Auto) % Neut % (Auto) % Lymph % (Auto) % [place] % (Auto) % Eos % (Auto) % Baso % (Auto) % Neut # (Auto) (1.4-6.5) K/uL Lymph # (Auto) (1.2-3.4) K/uL [place] # (Auto) (0.11-0.59) K/uL Eos # (Auto) (0-0.5) K/uL Baso # (Auto) (0-0.2) K/uL Immature Gran # (Auto) (0.00-0.02) K/uL ABG pH Cancelled ABG pCO2 Cancelled ABG pO2 Cancelled ABG HCO3 Cancelled ABG O2 Saturation Cancelled ABG Base Excess Cancelled [place] Test Cancelled VBG pH 7.31 L VBG pCO2 44 VBG pO2 37 VBG HCO3 22 VBG O2 Saturation 63.2 VBG Base Excess -4.5 Barometric Pressure Cancelled Oxygen Given Cancelled Sodium (136-145) mmol/L Potassium (3.5-5.1) mmol/L Chloride (98-107) mmol/L Carbon Dioxide (21-32) mmol/L Anion Gap BUN (6-23) mg/dl Creatinine (0.6-1.2) mg/dl Est Cr Clr Drug Dosing Est GFR ( Amer) ml/min Est GFR (Non-Af Amer) ml/min BUN/Creatinine Ratio (10-20) Glucose (70-99(Fasting)) mg/dl Lactate (0.4-2.0) mmol/L Calcium (8.5-10.1) mg/dl Total Bilirubin (0.2-1.0) mg/dl AST (13-39) U/L ALT (7-52) U/L Alkaline Phosphatase (34-104) U/L Total Protein (6.0-8.3) gm/dl Albumin (3.4-5.0) gm/dl Globulin (2.5-4.0) gm/dl Albumin/Globulin Ratio (0.9-2) Lipase (11-82) U/L Urine Color Urine Appearance (Clear) Urine pH (4.5-7.5) Ur Specific [place] (1.000-1.030) Urine Protein (Negative) Urine Glucose (UA) (Negative) Urine Ketones (Negative) Urine Blood (Negative) Urine Nitrite (Negative) Urine Bilirubin (Negative) Urine Urobilinogen (Negative) Ur Leukocyte Esterase (Negative) Urine RBC (0-4) /hpf Urine WBC (0-5) /hpf Ur Epithelial Cells (0-5) /lpf Urine Bacteria (Negative) SARS-CoV-2, RNA, NAAT NEGATIVE (NEGATIVE) Administered Medications Discontinued Medications Albuterol (Albut/Ipratrop 3mg/0.5mg Neb 3 Ml Vial) 3 ml NEB NOW STA; Protocol Stop: 11/17/21 21:52 Last Admin: 11/17/21 22:25 Dose: 3 ml Documented by: [id number] Sodium Chloride (Nss 1000ml) 1,000 mls @ 999 mls/hr IV .Q1H1M ONE Stop: 11/17/21 21:45 Last Admin: 11/17/21 22:32 Dose: Not Given Documented by: [id number] Sodium Chloride (Nss 1000ml) 500 mls @ 999 mls/hr IV .Q31M ONE Stop: 11/17/21 21:19 Last Admin: 11/17/21 21:54 Dose: Not Given Documented by: [id number] Sodium Chloride (Nss 1000ml) 1,000 mls @ 500 mls/hr IV .Q2H ONE Stop: 11/17/21 23:54 Last Admin: 11/17/21 22:25 Dose: 500 mls/hr Documented by: [id number] Morphine Sulfate (Morphine Sulfate 2 Mg/Ml Carp) 2 mg IV NOW STA Stop: 11/17/21 21:51 Last Admin: 11/17/21 22:25 Dose: 2 mg Documented by: [id number] Ondansetron HCl (Ondansetron Inj 2 Mg/Ml 2 Ml Vial) Confirm Administered Dose 4 mg .ROUTE .STK-MED ONE Stop: 11/17/21 22:20 Last Admin: 11/17/21 22:26 Dose: 4 mg Documented by: [id number] Imaging Data Radiologist's Impression: Patient: NAYELI GUERRERO (Female) : 51 Status: ER Date: 11/17/21 23:00 Room #: History: PT. REPORTS LT. SIDED FLANK PAIN AND LOWER PELVIC PAIN STENT PLACED HAS BEEN PLACED APPENDIX PRESENT Slices: [id number] Priors: Tech: Cheng Sonin @ [phone] Exams: CT ABDOMEN & PELVIS Without Contrast Contrast: Accession Numbers: [id number] Referring Physician: SKIP DAMICO Preliminary Findings Only See Final Report For Complete Findings CT ABDOMEN & PELVIS Without Contrast: Mild posterior dependent atelectasis. Subtle areas of groundglass opacities through the subpleural region more on the left c ompared to the right does not exclude multifocal pneumonitis. There are small bilateral pulmonary nodules, largest averaging approximately 4.5 mm, cannot exclude metastatic disease. Normal cardiac size. Large hiatal hernia. Status post cholecystectomy otherwise unremarkable biliary system. The liver, pancreas and spleen are unremarkable. Normal bilateral adrenal glands. Right mid upper renal pole low-attenuation structure measuring 1.2 cm with Hounsfield units consistent with a cyst. Tiny calcification measuring 1.5 mm within the right middle renal pole, likely sequela of stone versus dystrophic or vascular calcification. There is mild a adjacent cortical scarring. No right hydronephrosis. The left kidney reveals a left significant cortical thinning and atrophy. There is a left upper renal pole simple cyst measuring 5.3 cm. There are left lower renal pole calcifications, likely residual stones largest measuring 6 x 6 mm. The small bowel is nonspecific. There are postoperative changes through the mid sigmoid. No bowel obstruction. The right: Is not visualized, correlation with history of prior partial colonic resection recommended. There is diastases through the anterior linea alba at the lower pelvis. Degenerative disease of the spine with osteopenia. Radiologist: Brissa Medina MD Study ready at 23:04 and initial results transmitted at 23:41 Discharge Plan Visit Data Chief Complaint: Abdominal Pain Stated Complaint: AB PAIN ED Provider: Skip Damico Discharge Problem: Sepsis, Metabolic acidosis, Chronic respiratory failure with hypoxia, Acute dehydration, Acute UTI Patient Disposition: Admitted As Inpatient Forms Stand Alone Forms: [facility] Prescriptions Prescriptions: No Action ondansetron 4 mg tablet,disintegrating 4 mg PO Q8H PRN (Reason: nausea and vomiting) Qty: 10 RF: 0 metoprolol succinate 50 mg tablet extended release 24 hr 50 mg PO QAM RF: 0 Trelegy Ellipta 100-62.5-25 mcg blister with device 1 inh inhalation DAILY PRN (Reason: Shortness Of Breath) RF: 0 metoprolol succinate 25 mg tablet extended release 24 hr 25 mg PO PM RF: 0 albuterol sulfate 90 mcg/actuation Hfa Aerosol Inhaler 2 puff INHALATION Q4H PRN (Reason: Shortness Of Breath) RF: 0 magnesium oxide 400 mg magnesium Tablet 400 mg PO HS RF: 0 atorvastatin [Lipitor] 40 mg Tablet 40 mg PO QPM RF: 0 clopidogrel [Plavix] 75 mg Tablet 75 mg PO QPM RF: 0 pantoprazole [Protonix] 40 mg Tablet,Delayed Release (Dr/Ec) 40 mg PO BID RF: 0 riboflavin (vitamin B2) 400 mg Tablet 400 mg PO QPM RF: 0 cholecalciferol (vitamin D3) [Vitamin D3] 2,000 unit Capsule 2,000 unit PO QAM RF: 0 oxcarbazepine 300 mg tablet 300 mg PO BID RF: 0 acetaminophen [Tylenol Extra Strength] 500 mg Tablet 1,000 mg PO AMHS RF: 0 glipizide [Glucotrol XL] 2.5 mg tablet extended release 24hr 2.5 mg PO PM RF: 0 loperamide 2 mg Capsule 2 mg PO TID PRN (Reason: diarrhea) Qty: 30 RF: 0 tamsulosin 0.4 mg Capsule 0.4 mg PO QAM 30 Days Qty: 30 RF: 0 phenazopyridine [Pyridium] 100 mg Tablet 100 mg PO TID PRN (Reason: bladder spasms) Qty: 30 RF: 0 Referrals Referrals: Lo Chand DO [Primary Care Provider] - Discharge Problem: Sepsis Qualifiers: Sepsis type: sepsis due to unspecified organism Sepsis acute organ dysfunction status: unspecified Qualified Code(s): A41.9 - Sepsis, unspecified organism
[2021-11-17 20:44] LABS: Potassium 4.5 mmol/L (3.5-5.1)
[2021-11-17] MEDS ORDERED: SODIUM CHLORIDE 0.9% 1000ML 1,000 ML IV ONE ×2 (20:45→21:55)
[2021-11-17] MEDS ORDERED: SODIUM CHLORIDE 0.9% 1000ML 500 ML IV ONE (20:49)
[2021-11-17] MEDS ORDERED: MoRPHine SULFATE 2 MG/ML CARP IV STA (21:50)
[2021-11-17] MEDS ORDERED: ALBUT/IPRATROP 3MG/0.5MG NEB 3 ML VIAL NEB STA (21:51)
[2021-11-17] MEDS ORDERED: ONDANSETRON INJ 2 MG/ML 2 ML VIAL ONE (22:19)
[2021-11-17 23:12] LABS: Base Excess VBG -4.5 mEq/L; HCO3 VBG 22 mmol/L; Oxygen Saturation VBG 63.2 %; PCO2 VBG 44 mmHg (38-50); PO2 VBG 37 mmHg; pH VBG 7.31 (7.36-7.41)
[2021-11-18] MEDS ORDERED: MoRPHine SULFATE 2 MG/ML CARP IV STA ×2 (00:46→08:17)
[2021-11-18] MEDS ORDERED: CONSULT PHARMACY STA (02:24)
[2021-11-18] MEDS ORDERED: LEVALBUTEROL HCL 1.25 MG/3 ML NEB NEB PRN (03:01)
[2021-11-18] MEDS ORDERED: NITROGLYCERIN SL 0.4 MG/TAB TAB SL PRN (03:01)
[2021-11-18] MEDS ORDERED: ALBUTEROL HFA 8 GM INHALER INH PRN (03:01)
[2021-11-18] MEDS ORDERED: ACETAMINOPHEN 325 MG TAB PO PRN (03:01)
[2021-11-18] MEDS ORDERED: LOPERAMIDE HCL 2 MG CAP PO PRN (03:01)
[2021-11-18] MEDS ORDERED: UMECLIDINIUM/VILANTEROL 62.5/25MCG 7 PUFFS/INHALER INH PRN (03:22)
[2021-11-18] MEDS ORDERED: FLUTICASONE FUROATE 100MCG 14 PUFFS/INHALER INH PRN (03:23)
[2021-11-18] MEDS ORDERED: CEFEPIME 2,000 MG in SYRINGE 0 ML IV ONE (03:30)
[2021-11-18] MEDS: SODIUM CHLORIDE 0.9% 1000ML 1,000 ML IV SCH ×2 (03:42→16:41)
--- NOTE | 2021-11-18 04:21 | Urology Consultation ---
Date of Consultation November 18, 2021 Assessment & Plan (1) Acute UTI: Patient has been admitted on the medical service. We recommend proceeding as follows: Antibiotics in the form of cefepime have been initiated. Recommend continue this until urine culture is back at which time her antibiotics can be tailored based on the results of these Recommend hydration with IV fluids Recommend making the patient n.p.o. at the present time. Should be seen by her dayshift urology team to determine if any further action is needed requiring patient stent such as removal or stent exchange. Continue analgesics Continue antiemetics Supervising Physician Co-Signing Physician Notes Reviewed note and patients imaging and labs. Agree with plan above. Treat initially with antibiotics, no emergent scenario to exchange stent as it is in appropriate position and there is minimal hydronephrosis, which can be a result of urine refluxing back up stent. History of Present Illness Reason for Consultation: Abdominal pain with urinary tract infection Attending Physician: Yesica Grande MD History of Present Illness This is a 66-year-old female who was recently hospitalized at [facility] from October 30 through November 09 of this year. During this admission she was admitted due to pneumonia secondary to COVID-19. Prior to this the patient was admitted to [facility] from October 11 through October 24 of this year. During this admission she had obstructive pyelonephritis and required urologic attention in the form of cystoscopy with left ureteral stent placement. This was performed by Dr. Adam. The patient notes that she has been having persistent abdominal pain since she was discharged home from her most recent hospitalization. She has had nausea vomiting and she reports left-sided flank and back pain. She denies any fevers, shakes, chills but she does note persistent dysuria. Because of her symptoms she reported to [facility]. Should be noted that during her most recent admission urology was consulted to determine if any intervention was needed requiring patient's left ureteral stent, but it was elected to defer any treatment of her known kidney stones and leave the stent in place until patient was recovered from her COVID-19 illness. rocio in the emergency department patient had labs and imaging which independent reviewed. Chest x-ray did not show any evidence of pneumonia. CT scan of patient's abdomen and pelvis with the patient had a left ureteral stent in place. There is no right hydronephrosis. There is a left upper renal pole cyst measuring approximate 5.3 cm. Also noted to be renal pole calcifications and residual stones measuring 6.6 mm of the lower at the largest. Labs including CBC were white blood cell count is 12.2. Hemoglobin and hematocrit were 11.2 and 36.7. Platelet count was noted to be normal. Chemistry profile showed sodium and potassium were normal. Her BUN and creatinine were 20 and 1.9. Review of records show that her baseline creatinine typically runs anywhere from 1.3-1.7. A urinalysis showed greater than 30 white blood cells per high-power field. There is also 1+ bacteria noted. A Covid test was noted to be negative. The time of my interview she is resting comfortably in bed in no distress. Allergies Allergy/AdvReac Type Severity Reaction Status Date / Time fentanyl Allergy Severe itching/felt Verified 11/17/21 20:25 like throat closing salicylates Allergy Severe SHORTNESS Verified 11/17/21 20:25 OF BREATH Iodinated Contrast Media Allergy Intermediate EYES Verified 11/17/21 20:25 SWELLING/Hives amoxicillin [From Augmentin] Allergy Mild Rash Verified 11/17/21 20:25 aspirin Allergy Mild FACIAL Verified 11/17/21 20:25 SWELLING clavulanic acid Allergy Mild Rash Verified 11/17/21 20:25 [From Augmentin] hydromorphone Allergy Mild RASH/ITCHIN Verified 11/17/21 20:25 G meperidine AdvReac Intermediate ITCH Verified 11/17/21 20:25 morphine AdvReac Intermediate ITCH Verified 11/17/21 20:25 tramadol AdvReac Mild itch Verified 11/17/21 20:25 Home Medications Medication Instructions Recorded Confirmed Type atorvastatin 40 mg tablet (Lipitor) 40 mg PO QPM 07/12/18 11/17/21 History clopidogrel 75 mg tablet (Plavix) 75 mg PO QPM 07/12/18 11/17/21 History pantoprazole 40 mg tablet,delayed 40 mg PO BID 07/12/18 11/17/21 History release (Protonix) riboflavin (vitamin B2) 400 mg 400 mg PO QPM 07/12/18 11/17/21 History tablet cholecalciferol (vitamin D3) 50 2,000 unit PO QAM 05/16/19 11/17/21 History mcg (2,000 unit) capsule (Vitamin D3) albuterol sulfate 90 mcg/actuation 2 puff INHALATION Q4H PRN 07/21/19 11/17/21 History aerosol inhaler magnesium oxide 400 mg PO HS 10/05/19 11/17/21 History fluticasone fur. 100 mcg-umeclid 1 inh INHALATION DAILY PRN 12/11/20 11/17/21 History 62.5 mcg-vilant 25 mcg inhalat.powder (Trelegy Ellipta) metoprolol succinate 25 mg 25 mg PO PM tab 12/11/20 11/17/21 History tablet,extended release 24 hr metoprolol succinate 50 mg 50 mg PO QAM 12/11/20 11/17/21 History tablet,extended release 24 hr glipizide 2.5 mg tablet, extended 2.5 mg PO PM 04/29/21 11/17/21 History release 24 hr (Glucotrol XL) ondansetron 4 mg disintegrating 4 mg PO Q8H PRN #10 tab 06/02/21 11/17/21 Rx tablet acetaminophen 500 mg tablet 1,000 mg PO AMHS 10/11/21 11/17/21 History (Tylenol Extra Strength) oxcarbazepine 300 mg tablet 300 mg PO BID 10/11/21 11/17/21 History loperamide 2 mg capsule 2 mg PO TID PRN #30 cap 11/09/21 11/17/21 Rx phenazopyridine 100 mg tablet 100 mg PO TID PRN #30 tab 11/09/21 11/17/21 Rx (Pyridium) tamsulosin 0.4 mg capsule 0.4 mg PO QAM 30 Days #30 cap 11/09/21 11/17/21 Rx Patient History Medical History Acute UTI (urinary tract infection) has presently per pt Anxiety Asthma well controlled per pt, rare inh use CHF (congestive heart failure) follows with Dr. Singh Chronic back pain Chronic headaches Chronic renal insufficiency stage 3, following with [facility] nephrology ([place]) Chronic respiratory failure with hypoxia Was on home oxygen in the past but no longer using at this time CKD (chronic kidney disease) COPD (chronic obstructive pulmonary disease) Deep vein thrombosis LLE - COULD NOT RECALL DATE - REPORTS SHE WAS TREATED AT [facility] W/ BLOOD THINNERS Depression Diabetes mellitus, type 2 GERD (gastroesophageal reflux disease) History of colon cancer 2012 S/P BOWEL RESECTION. History of COVID-27 Sep 2020 HTN (hypertension) Hyperlipidemia Mood disorder Morbid obesity with BMI of 40.0-44.9, adult Myocardial Infarction 06/2016--> [facility] -- CARDIAC CATH --> normal coronary anatomy without coronary obstruction but Plavix started per [facility] discharge summary On anticoagulant therapy plavix daily CALI (obstructive sleep apnea) Poor historian Seizure Pt states "i think i had them a long time ago". no other information. No hx of seizures noted in records Sinus tachycardia Follows with cardio Surgical History H/O hand surgery RIGHT History of appendectomy History of bilateral cataract extraction History of blepharoplasty History of cardiac cath 03/2018 - [place] - DENIES STENTS/ANGIOPLASTY - [facility] - FOLLOWS W/ DR. SINGH History of closure of ileostomy History of colectomy due to colon cancer History of colonoscopy History of cystoscopy History of esophageal dilatation History of esophagogastroduodenoscopy (EGD) History of hysterectomy History of kidney surgery at age 9 yrs "something was wrong and had to fix it" History of lithotripsy History of tooth extraction History of total abdominal hysterectomy and bilateral salpingo-oophorectomy Hx of cholecystectomy Family History Other Breast cancer Social History Smoking Status: Never smoker Second Hand Exposure: No; Hx Alcohol Use: No Hx Substance Use: No Preferred Language: Greenlandic Communication Ability: Effective Procurement Accountant Required: No Beliefs That Will Affect Care: None marital status: Current Living Situation: Spouse Current Living Situation Comment: [facility] in [facility]. [facility] Feels Safe at Home: Yes Assistive Devices: Oxygen - Continuous Review of Systems Constitutional: no fever and no chills Eyes: no diplopia Ear, Nose, Mouth, Throat: no ear pain Respiratory: no cough and no dyspnea Cardiovascular: no chest pain Gastrointestinal: + abdominal pain, + nausea and + vomiting Genitourinary: + dysuria and + flank pain (Left-sided) Musculoskeletal: + back pain (Left-sided flank pain) Integumentary: no rash Neurologic: no localized weakness Physical Exam Constitutional: well developed, well nourished and + obese; no acute distress Eyes: no conjunctival abnormality ENMT: Ears: no hearing impairment Mouth: no oropharynx abnormality Neck: trachea midline Respiratory: normal respiratory effort; no respiratory distress and no labored breathing Cardiovascular: Rate/Rhythm: regular rate Gastrointestinal (Abdomen): Abdomen is soft and nondistended. Patient did have some pain with palpation on the left side of her abdomen greatest in the left lower quadrant. Musculoskeletal: No calf tenderness Skin: no rashes Neurologic: moves all extremities Psychiatric: A+Ox3, euthymic affect Genitourinary: + CVA tenderness (Left-sided) Results & Data ([facility]) Vital Signs (Past 12 Hours) Vital Signs Pulse Pulse Resp BP BP Pulse Ox 11/18/21 01:29 106 H 18 113/62 100 11/17/21 23:31 116 H 18 109/79 99 11/17/21 22:00 112 H 25 H 122/81 100 11/17/21 21:49 119 H 26 H 135/88 98 11/17/21 21:30 120 H 20 97 11/17/21 21:00 117 H 18 94 11/17/21 20:30 126 H 19 100 11/17/21 20:03 119 H 28 H 107/70 97 PG Care Time/CCT Total # of Minutes Spent Total Time Spent with Patient: Total time spent is greater than 50% in coordination of care (as documented) at patient's floor/unit and/or counseling patient: Coding Level of Care Code 66812 Inpt Consult Level 5 Diagnoses Acute UTI N39.0
[2021-11-18] MEDS: INSULIN ASPART PER UNIT SC SCH ×4 (05:30→23:42)
[2021-11-18] MEDS ORDERED: ENOXAPARIN INJ 40 MG/0.4 ML SYR SQ SCH (06:00)
[2021-11-18 07:54] LABS: Basophils # (auto) 0.02 K/uL (0-0.2); Basophils % (auto) 0.2 %; Eosinophils # (auto) 0.58 K/uL (0-0.5); Eosinophils % (auto) 6.8 %; Hematocrit (blood only) 32.6 % (37-47); Hemoglobin 9.8 g/dL (12.0-16.0); Immature Granulocytes # (auto) 0.07 K/uL (0.00-0.02); Immature Granulocytes % (auto) 0.8 %; Lymphocytes # (auto) 1.89 K/uL (1.2-3.4); Lymphocytes % (auto) 22.2 %; Mean Corpuscular Hemoglobin 29.4 pg (25-34); Mean Corpuscular Hgb Conc 30.1 g/dL (32-36); Mean Corpuscular Volume 97.9 fL (80-100); Mean Platelet Volume 10.8 fL (7.4-10.4); Monocytes # (auto) 1.13 K/uL (0.11-0.59); Monocytes % (auto) 13.2 %; Neutrophils # (auto) 4.84 K/uL (1.4-6.5); Neutrophils % (auto) 56.8 %; Platelet Count 212 K/uL (130-400); RDW Coefficient of Variation 14.2 % (11.5-14.5); RDW Standard Deviation 50.6 fL (36.4-46.3); Red Blood Count 3.33 M/uL (4.2-5.4); White Blood Count 8.53 K/uL (4.8-10.8)
--- NOTE | 2021-11-18 08:01 | CT Scan Report ---
CT OF THE ABDOMEN AND PELVIS WITHOUT CONTRAST CLINICAL HISTORY: Left flank pain. Suprapubic pain. Left ureteral stent. COMPARISON STUDY: CT of the abdomen and pelvis November 07, 2021. TECHNIQUE: Axial images of the abdomen and pelvis were obtained without IV contrast. Images were revi ewed in the axial, sagittal, and coronal planes. Automated exposure control was utilized for the ascencion dy. A dose lowering technique was utilized adhering to the principles of ALARA. FINDINGS: Several nodules within the lower lungs are unchanged from earlier exams. These are benign g iven stability. A moderate sized hiatal hernia is present. No pneumatosis, free air or portal venous gas is present. Left ureteral stent is appropriately positioned. Mild dilatation of the left renal pe lvis is similar to CT of October 18, 2021. Bilateral urothelial thickening is again noted. This is sim ilar to prior exam. Marked left renal atrophy is noted. No calculi within lower pole the left kidney measure up to 8 mm. These are similar to prior exam. There are no ureteral calculi. A 4 mm calcificat ion within the right kidney is noted. Broad wall thickening with adjacent infiltration is unchanged. A cyst within the upper pole the left kidney is noted. Evaluation of the remainder of the abdomen and pelvis is suboptimal on this unenhanced exam. The liver, spleen, adrenal glands and pancreas are unr emarkable. There is no evidence for a bowel obstruction. Sigmoid resection is noted. There is no lymp hadenopathy. No acute fracture or suspicious lesion is identified within the visualized skeletal stru ctures. IMPRESSION: 1. Left ureteral stent in place. No change in mild dilatation of the left renal pelvis since CT of [facility] 2021. Left-sided nephrolithiasis. No ureteral calculi. 2. No significant change in urothelial thickening within both collecting systems and proximal ureters as well as bladder wall thickening with adjacent infiltration. Findings could be correlated with uri nalysis. 3. Marked left renal atrophy. 4. No bowel obstruction. ACT 112: Negative or not required by law. Electronically signed by: Abdirashid Motta M.D. 11/18/2021 7:59 AM
--- NOTE | 2021-11-18 08:15 | XRay Report ---
XR chest 1V portable CLINICAL HISTORY: Shortness of breath, copd COMPARISON STUDY: Chest radiograph October 29, 2021. FINDINGS: Lung volumes are normal. Minimal left basilar opacity is noted, improved since prior exam. There is no pneumothorax or pleural effusion. Cardiac size is normal. Mediastinal contours are normal . There is no evidence for pulmonary edema. IMPRESSION: Minimal left basilar opacity, improved since prior exam. ACT 112: Negative or not required by law. Electronically signed by: Abdirashid Motta M.D. 11/18/2021 8:14 AM
[2021-11-18 08:21] LABS: BUN Creatinine Ratio 14.3 (10-20); Calcium 8.8 mg/dl (8.5-10.1); Creatinine Clr Calc Pharmacy 27.4 ml/min; Est GFR (African American) 29.7 ml/min; Est GFR (Non-African American) 25.6 ml/min; Magnesium 1.1 mg/dl (1.7-2.4); Potassium 4.2 mmol/L (3.5-5.1)
[2021-11-18] MEDS: ONDANSETRON INJ 2 MG/ML 2 ML VIAL IV PRN ×2 (08:41→19:39)
[2021-11-18 08:46] LABS: Base Excess ABG -6.9 mEq/L (-9-1.8); HCO3 ABG 19 mmol/L (19-24); Oxygen Saturation ABG 97.9 % (90-95); PCO2 ABG 36 mmHg (35-46); PO2 ABG 108 mmHg (80-95); pH ABG 7.32 (7.35-7.45)
[2021-11-18 08:54] LABS: Allen Test Pos (Pos)
[2021-11-18] MEDS: TAMSULOSIN HCL 0.4 MG CAP PO SCH (09:32)
[2021-11-18] MEDS: METOPROLOL SUCC 50MG EXT REL TAB PO SCH (09:32)
[2021-11-18] MEDS: PANTOprazole 40 MG TAB PO SCH ×2 (09:33→21:32)
[2021-11-18] MEDS: CHOLECALCIFEROL 1,000 UNITS 25 MCG TAB PO SCH (09:33)
[2021-11-18] MEDS: OXcarbazepine 150 MG TABLET PO SCH ×2 (09:33→21:32)
[2021-11-18] MEDS: ACETAMINOPHEN 500 MG TAB PO SCH ×2 (09:36→21:29)
--- NOTE | 2021-11-18 10:56 | Urology Progress Note ---
Date of Service November 18, 2021 Assessment & Plan (1) S/P ureteral stent placement: (2) Acute UTI: Plan: - Plan of care reviewed with Dr. Stein, urologist distribution engineer. - Pt afebrile, nontoxic appearing, lab work reviewed - creatinine 1.96, WBC 8.53, Hgb 9.8. - Urine culture preliminary gram negative bacilli; Blood cultures pending. - Currently on IV Cefepime. - Continue with antibiotics and follow cultures. - Stent is in appropriate position and there is minimal hydronephrosis, which can be a result of urine refluxing back up stent. - No acute intervention warranted today, continue to monitor closely. - Continue supportive care and management per primary team. - Will continue to follow. Admission and Anticipated Discharge Date Admission Date: November 18, 2021 Subjective Patient seen and examined at bedside this AM in ED. She is awake, alert and resting in litter in no acute distress. Generally feeling okay, reports they had difficulty with obtaining IV access so arms are sore. Reports intermittent left sided abdominal and flank discomfort, worse with voiding. Voiding spontaneously, notes dysuria but no hematuria. No nausea or vomiting. No fever, occasional chills. Offers no additional complaints. Review of Systems Constitutional: as per Subjective / HPI Gastrointestinal: as per Subjective / HPI Genitourinary: as per Subjective / HPI Physical Exam Constitutional: + obese; no acute distress Respiratory: no respiratory distress and no labored breathing Cardiovascular: Extremities: no pedal edema Gastrointestinal (Abdomen): Inspection/Auscultation: abdomen normal to inspection; abdomen not distended Percussion/Palpation: + abdomen tender (mildly tender to palpation on left lower abdomen) and abdomen soft Musculoskeletal: Head/Neck/Chest: normocephalic and head atraumatic Neurologic: awake Psychiatric: Orientation: alert and oriented x 3 Genitourinary: mild tenderness to palpation on left flank Results & Data ([facility]) Vital Signs (Past 12 Hours) Vital Signs Pulse Pulse Resp BP BP Pulse Ox Pulse Ox 11/18/21 10:38 78 15 93/67 L 100 11/18/21 08:43 95 H 16 97/74 L 100 11/18/21 06:30 100 11/18/21 06:29 90 18 98/74 L 100 11/18/21 04:20 97 H 18 112/74 98 11/18/21 01:29 106 H 18 113/62 100 11/17/21 23:31 116 H 18 109/79 99 PG Care Time/CCT Total # of Minutes Spent Total Time Spent with Patient: Total time spent is greater than 50% in coordination of care (as documented) at patient's floor/unit and/or counseling patient: Coding Level of Care Code 63292 Subseq Hosp Care Lvl 2 Diagnoses S/P ureteral stent placement Z96.0 Acute UTI N39.0
--- NOTE | 2021-11-18 12:10 | History and Physical Report ---
DATE OF ADMISSION: 11/18/2021. CHIEF COMPLAINT: Left-sided abdominal pain and back pain. HISTORY OF PRESENT ILLNESS: This is a 66-year-old female with past medical history significant for type 2 diabetes, COPD, chronic kidney disease stage III, hypertension, bipolar disorder, chronic respiratory failure - on home oxygen 2 liters, history of laparoscopic colectomy total with proctectomy and ileostomy and ileoproctostomy in 2010 for colon cancer, recent admission for obstructive pyelonephritis, status post cystoscopy and left ureter stent placement on 10/12/2021, treated with antibiotics, but during hospitalization, she developed respiratory acidosis, transferred to ICU, was intubated. She underwent a bronchoscopy and the patient was extubated and she was doing fine. Her creatinine worsened at 3.1, improved to 1.7. She was discharged home and again she came back to the hospital on 10/30/2021 with not feeling well and found to have COVID pneumonia and completed a 10-day course of Decadron. Respiratory status improved significantly and she was also treated again for UTI with 5 days of cefepime and transitioned to cefdinir. She had diarrhea during hospitalization. Stool for C. diff was negative and she also had hematochezia. GI was consulted. No plans for EGD or colonoscopy at that point and the patient did fine and discharged back home on 11/09/2021, but the patient states since going home, again she is not doing well. She is still not eating much or drinking much, not ambulating much and the patient had developed again left- sided abdominal pain and flank pain and she came to the ER. She had again white count of 12.2. Urinalysis was positive. Venous blood gas showed VpH of 7.31, Creatinine was 1.9, baseline creatinine 1.5. CT of abdomen and pelvis was ordered and the preliminary report shows bilateral pulmonary nodules. Currently, hemodynamically stable. The patient denies any chest pain, no nausea, no vomiting. Denies any diarrhea or constipation. She has burning micturition. Has some headache. No runny nose, no sore throat. ALLERGIES: FENTANYL, SALICYLATES, IODINATED CONTRAST MEDIA, AUGMENTIN, ASPIRIN, HYDROMORPHONE, MEPERIDINE, MORPHINE, TRAMADOL. PAST MEDICAL HISTORY: As mentioned above. PAST SURGICAL HISTORY: Breast lesion excision, colonoscopy, EGD, sigmoidoscopy, laparoscopic colectomy, total proctectomy with ileostomy in 07/2011, removal of kidney stones, cataracts, cholecystectomy, sigmoidoscopy with biopsy, total hysterectomy. MEDICATIONS: The patient currently is on Tylenol Extra Strength 1000 mg p.o. b.i.d., albuterol 2 puffs inhalation q.4 hours p.r.n., Lipitor 40 mg p.o. daily, vitamin D 2000 units p.o. a.m., Plavix 75 mg p.o. a.m., fluticasone inhalation daily, glipizide 2.5 mg p.o. p.m., loperamide 2 mg p.o. t.i.d. p.r.n., magnesium 400 mg p.o. at bedtime, metoprolol succinate 25 mg p.o. p.m., metoprolol succinate 50 mg p.o. a.m., Zofran 4 mg q.8 hours p.r.n., oxcarbazepine 300 mg p.o. b.i.d., Protonix 40 mg p.o. b.i.d., riboflavin 400 mg p.o. a.m., Flomax 0.4 mg p.o. a.m. FAMILY HISTORY: Significant for mother had breast cancer, sister had breast cancer, father of colon cancer. SOCIAL HISTORY: , currently lives alone. lives upstairs. No smoking, no alcohol, no drug use. REVIEW OF SYSTEMS: As per HPI. Rest of review of systems is negative. PHYSICAL EXAMINATION: GENERAL: The patient is morbidly obese, not in acute distress. VITAL SIGNS: Temperature 36.7, pulse 90, respiratory rate 18, blood pressure 98/74, oxygen 100% on 2 liters. HEENT: Pupils equal, round and reactive to light. Oral mucosa moist. NECK: No JVD. No neck masses. CARDIOVASCULAR: S1 and S2 heard. Regular rate and rhythm. No murmur, no gallop. RESPIRATORY SYSTEM: Normal AP diameter. No accessory muscle use. No wheezing, no crackles. ABDOMEN: Soft, bowel sounds present. Left-sided abdominal tenderness present. No guarding, no rigidity, no distention. CENTRAL NERVOUS SYSTEM: Cranial nerves II-XII grossly intact, nonfocal. EXTREMITIES: Mild pedal edema present, no erythema seen. LABORATORY DATA: WBC 12.2, hemoglobin 11.2, hematocrit 36.7, platelets 269. Venous blood gas; pH of 7.3, pCO2 of 44, pO2 of 37, bicarbonate 22. Sodium 137, potassium 4.5, chloride 106, bicarbonate 18, BUN 28, creatinine 1.9, serum glucose 128, lactate 1.7, calcium 10, total bilirubin 0.5, AST 15, ALT 28, alkaline phosphatase 105. Lipase 84. Urinalysis positive for +1 bacteria. SARS-CoV-2 negative. IMAGING: Chest x-ray, no acute findings. CT of abdomen and pelvis, we will follow the final report. ASSESSMENT AND PLAN: This 66-year-old female presents with left flank pain and found to have urinary tract infection, acute kidney injury, and mild metabolic acidosis. 1. Recurrent urinary tract infections: Flank pain could be possibly from urinary tract infection. Empirically started on cefepime. She has a stent placed on 10/12. We will follow the KUB for stent position. Consult urology, await urology for further determination. Monitor in the hospital. 2. History of recent COVID pneumonia: Currently saturating okay on her home oxygen. 3. Chronic respiratory failure: On 2 liters of oxygen chronically. 4. History of colon cancer, status post laparoscopic colectomy, total proctectomy, ileostomy, ileoproctostomy in 2010. seems stable. 5. History of chronic obstructive pulmonary disease: Continue her home oxygen. Continue home inhalers. 6. Acute kidney injury on chronic kidney disease stage III: Baseline creatinine 1.5, presents with creatinine of 1.9. Getting gentle fluids. Monitor laboratories. Avoid nephrotoxic agent. 7. Diabetes: Hold home medication. Place on insulin sliding scale. Follow the blood sugars. 8. Morbid obesity: Needs counseling. 9. Anemia: Hemoglobin 11.2, seems to be stable. We will follow the repeat laboratories. 10. Hyperlipidemia: On statin. 11. Hypertension: On metoprolol. We will monitor blood pressure. 12. Deep venous thrombosis prophylaxis: SCDS for now. If no plan for procedure we can place on heparin or lovenox. DISPOSITION: Closely monitor in [employer]. PT/OT prior to discharge. Social service to help with discharge planning. Job ID: [id number] [facility]
--- NOTE | 2021-11-18 13:15 | XRay Report ---
XR KUB/Abdomen 1 view CLINICAL HISTORY: abdominal pain. s/p ureteral stent. COMPARISON STUDY: 11/04/2021 TECHNIQUE: Single view of the abdomen. FINDINGS: The bowel gas pattern is within normal limits without evidence for dilatation or obstruction. There i s no evidence for organomegaly or gross intra-abdominal mass. Compared to the previous study, double- J ureteral stent is again seen on the left and unchanged. No abnormal calcifications are seen along t he course of the urinary tracts bilaterally. No acute osseous pathology. IMPRESSION: 1.No acute intra-abdominal abnormality. Left double-J ureteral stent, unchanged. ACT 112: Negative or not required by law. Electronically signed by: Humza Lobato M.D. 11/18/2021 1:14 PM
[2021-11-18] MEDS: MoRPHine SULFATE 2 MG/ML CARP IV PRN ×2 (13:32→19:39)
--- NOTE | 2021-11-18 18:12 | Communication Note ---
Date of Service: November 18, 2021 Pt was seen and examined. Lying in bed continue to have severe abdominal pain. Pt is avoiding to eat or drink anything because she afraid that will make her vomit. KUB showed no acute intra-abdominal abnormality. Left double-J ureteral stent, unchanged. CT abd/pelvis showed Left ureteral stent in place. No change in mild dilatation of the left renal pelvis since CT of November 07, 2021. Left- sided nephrolithiasis. No ureteral calculi.No significant change in urothelial thickening within both collecting systems and proximal ureters as well as bladder wall thickening with adjacent infiltration. Urology on board recommended to continue IV abx with cefepime. No plan for any urology procedure today. Urology will evaluate in the few days for possible stent removal or exchange next week. Continue pain control and clear liquid diet. Continue monitor closely. MD Christiane
[2021-11-18] MEDS ORDERED: NON-FORMULARY MEDICATION (Riboflavin (Vitamin B2) 400 mg Tablet) PO SCH (21:00)
[2021-11-18] MEDS: MAGNESIUM OXIDE 400 MG TAB PO SCH (21:30)
[2021-11-18] MEDS: CLOPIDOGREL BISULFATE 75 MG TAB PO SCH (21:30)
[2021-11-18] MEDS: METOPROLOL SUCC 25MG EXT REL TAB PO SCH (21:30)
[2021-11-18] MEDS: ATORVASTATIN 40 MG TAB PO SCH (21:30)
[2021-11-19] MEDS: MoRPHine SULFATE 2 MG/ML CARP IV PRN ×3 (04:43→19:32)
[2021-11-19] MEDS: ONDANSETRON INJ 2 MG/ML 2 ML VIAL IV PRN ×3 (04:44→19:33)
[2021-11-19] MEDS: INSULIN ASPART PER UNIT SC SCH ×4 (05:31→20:48)
[2021-11-19] MEDS ORDERED: CEFEPIME 1,000 MG in SYRINGE 0 ML IV SCH (06:00)
--- NOTE | 2021-11-19 08:14 | Urology Progress Note ---
Date of Service November 19, 2021 Assessment & Plan (1) Acute UTI: (2) S/P ureteral stent placement: Plan: 66yo F with a complex past medical historyadmitted with UTI and PERRI - Plan of care reviewed with Dr. Adam. - Hx of left ureteral stent placement on 10/12/21. - Pt afebrile, lab work reviewed - Wbc normal, creatinine 1.76 today (1.96 yesterday) - Continue to trend - Urine culture prelim with Klebsiella, blood cultures no growth x 24hours - Currently on IV Cefepime. - Continue with antibiotics and follow cultures. - Voiding spontaneously. Continue to monitor, bladder scan as needed. - Stent is in appropriate position and there is minimal hydronephrosis, which can be a result of urine refluxing back up stent. - No acute intervention warranted at this time, will continue to monitor closely. - Continue supportive care, antibiotic therapy, and management per primary team. - Will need to determine optimal time for intervention for stone treatment vs. stent exchange. - If patient remains hospitalized, we may consider intervention next week pres uming she remains stable and infection treated. - Will continue to follow peripherally and will reassess surgical intervention while inpatient. Admission and Anticipated Discharge Date Admission Date: November 18, 2021 Subjective Patient seen and examined at bedside this AM in ED. She is awake, alert and resting in bed on arrival. No acute distress. Reports intermittent left sided abdominal and flank discomfort, worse with voiding. Voiding spontaneously, notes dysuria but no hematuria. Pt has external catheter in place, urine is cloudy yellow. Some nausea, no vomiting. No fever or chills. Offers no additional complaints. Review of Systems Constitutional: as per Subjective / HPI Gastrointestinal: as per Subjective / HPI Genitourinary: as per Subjective / HPI Physical Exam Constitutional: + obese; no acute distress Respiratory: no respiratory distress and no labored breathing Gastrointestinal (Abdomen): Inspection/Auscultation: abdomen normal to inspection; abdomen not distended Percussion/Palpation: + abdomen tender (mildly tender to palpation on left lower abdomen) and abdomen soft Musculoskeletal: Head/Neck/Chest: normocephalic and head atraumatic Skin: No visible rashes or lesions to exposed skin areas Neurologic: awake Psychiatric: Orientation: alert and oriented x 3 Genitourinary: mild tenderness to palpation on left flank Results & Data ([facility]) Vital Signs (Past 12 Hours) Vital Signs Temp Pulse Resp BP Pulse Ox Pulse Ox 11/19/21 08:03 36.6 C 88 15 100/70 100 11/19/21 06:00 95 11/19/21 00:46 70 22 119/70 100 11/18/21 22:27 82 18 118/69 96 PG Care Time/CCT Total # of Minutes Spent Total Time Spent with Patient: Total time spent is greater than 50% in coordination of care (as documented) at patient's floor/unit and/or counseling patient: Coding Level of Care Code 50403 Subseq Hosp Care Lvl 2 Diagnoses Acute UTI N39.0 S/P ureteral stent placement Z96.0
[2021-11-19] MEDS: TAMSULOSIN HCL 0.4 MG CAP PO SCH (08:59)
[2021-11-19] MEDS: METOPROLOL SUCC 50MG EXT REL TAB PO SCH (09:00)
[2021-11-19] MEDS: CHOLECALCIFEROL 1,000 UNITS 25 MCG TAB PO SCH (09:00)
[2021-11-19] MEDS: OXcarbazepine 150 MG TABLET PO SCH ×2 (09:00→20:02)
[2021-11-19] MEDS: PANTOprazole 40 MG TAB PO SCH ×2 (09:00→20:01)
[2021-11-19] MEDS: ACETAMINOPHEN 500 MG TAB PO SCH ×2 (09:01→20:01)
[2021-11-19 09:26] LABS: Basophils # (auto) 0.01 K/uL (0-0.2); Basophils % (auto) 0.1 %; Eosinophils # (auto) 0.49 K/uL (0-0.5); Eosinophils % (auto) 6.9 %; Hematocrit (blood only) 34.3 % (37-47); Hemoglobin 10.2 g/dL (12.0-16.0); Immature Granulocytes # (auto) 0.03 K/uL (0.00-0.02); Immature Granulocytes % (auto) 0.4 %; Lymphocytes # (auto) 1.16 K/uL (1.2-3.4); Lymphocytes % (auto) 16.4 %; Mean Corpuscular Hemoglobin 29.6 pg (25-34); Mean Corpuscular Hgb Conc 29.7 g/dL (32-36); Mean Corpuscular Volume 99.4 fL (80-100); Mean Platelet Volume 10.5 fL (7.4-10.4); Monocytes # (auto) 0.69 K/uL (0.11-0.59); Monocytes % (auto) 9.8 %; Neutrophils # (auto) 4.68 K/uL (1.4-6.5); Neutrophils % (auto) 66.4 %; Platelet Count 196 K/uL (130-400); RDW Coefficient of Variation 14.2 % (11.5-14.5); RDW Standard Deviation 51.3 fL (36.4-46.3); Red Blood Count 3.45 M/uL (4.2-5.4); White Blood Count 7.06 K/uL (4.8-10.8)
[2021-11-19 09:47] LABS: BUN Creatinine Ratio 10.8 (10-20); Calcium 8.9 mg/dl (8.5-10.1); Creatinine Clr Calc Pharmacy 30.6 ml/min; Est GFR (African American) 33.8 ml/min; Est GFR (Non-African American) 29.2 ml/min; Potassium 4.2 mmol/L (3.5-5.1)
[2021-11-19] MEDS ORDERED: Nursing to Pharmacy Communication SCH (10:30)
[2021-11-19] MEDS: MAGNESIUM OXIDE 400 MG TAB PO SCH (20:01)
[2021-11-19] MEDS: CLOPIDOGREL BISULFATE 75 MG TAB PO SCH (20:01)
[2021-11-19] MEDS: METOPROLOL SUCC 25MG EXT REL TAB PO SCH (20:01)
[2021-11-19] MEDS: ATORVASTATIN 40 MG TAB PO SCH (20:01)
--- NOTE | 2021-11-19 23:17 | Hospitalist Progress Note ---
Date of Service November 19, 2021 Assessment & Plan (1) Acute UTI: Plan: Patient on admission with left lower abdominal and flank pain CT abd/pelvis showed no significant change in urothelial thickening within both collecting systems and proximal ureters as well as bladder wall thickening with adjacent infiltration. Urine culture grew Klebsiella pneumonia that is pansensitive Currently on IV cefepime, will de-escalate to Rocephin WBC normalized Continue monitor closely History of recent left ureteral stent placement, left nephrolithiasis Urine culture grew Klebsiella Cefepime transition to Rocephin KUB showed no acute intra-abdominal abnormality. Left double-J ureteral stent, unchanged. Urology on board recommen Will need to determine optimal time for intervention for stone treatment vs. stent exchange.d conservative management for now Continue Flomax Will add Pyridium as needed for pain History of chronic obstructive pulmonary disease and chronic respiratory failure : Current on oxygen 1 L with baseline 2L NC Continue her home inhalers. PERRI on chronic kidney disease stage III: Creatinine 1.9 on admission with creatinine at baseline, 1.4 Received IV fluid Creatinine improved to 1.7 Continue monitor BMP Diabetes: Hemoglobin A1c 6.1 on 10/31 Glipizide on hold insulin sliding scale Continue monitor blood sugar History of colon cancer: Status post laparoscopic colectomy, total proctectomy and ileostomy, and ileoproctostomy in 2010. Morbid obesity: Counseling on weight loss Anemia: Hemoglobin 10.2 Stable Hyperlipidemia: Continue statin Hypertension: Continue metoprolol. Deep venous thrombosis prophylaxis: On SCD, will add heparin subcutaneous Admission and Anticipated Discharge Date Admission Date: November 18, 2021 Subjective Patient was seen and examined for follow-up of abdominal pain Lying in bed with no acute distress watching TV Patient said that she continues to have abdominal pain mostly located in the left lower abdomen Denies any chest pain, palpitation, dizziness, shortness of breath. Review of Systems Review of Systems: All systems reviewed & are unremarkable except as noted in Subjective Physical Exam Physical Exam: General- No acute distress Head- atraumatic Eyes- PERRL, EOMI, ENT- oropharynx clear Neck- supple, no JVD Lungs-No wheezing, no rales Heart- regular rhythm; no murmur Abdomen- normal bowel sounds, soft, +tenderness with deep palpation Extremities- no calf tenderness Neuro- alert, oriented x 3; PERRL, EOMI; no facial palsy; no dysarthria Skin- warm & dry Results & Data Results & Data ([facility]) Vital Signs (Past 12 Hours) Vital Signs Temp Pulse Pulse Pulse Resp BP Pulse Ox 11/19/21 19:00 36.9 C 111 H 20 134/81 98 11/19/21 17:00 115 H 11/19/21 16:45 36.6 C 65 18 133/86 95 11/19/21 12:56 36.8 C 90 22 122/79 100
[2021-11-20] MEDS: MoRPHine SULFATE 2 MG/ML CARP IV PRN ×3 (05:44→19:22)
[2021-11-20] MEDS: cefTRIAXone SODIUM 2,000 MG in DEXTROSE 5% 50 ML IV SCH (05:46)
[2021-11-20 08:01] LABS: Hematocrit (blood only) 31.6 % (37-47); Hemoglobin 9.4 g/dL (12.0-16.0); Mean Corpuscular Hgb Conc 29.7 g/dL (32-36); Mean Corpuscular Volume 97.5 fL (80-100); Mean Platelet Volume 10.4 fL (7.4-10.4); Platelet Count 203 K/uL (130-400); RDW Coefficient of Variation 14.2 % (11.5-14.5); RDW Standard Deviation 50.8 fL (36.4-46.3); Red Blood Count 3.24 M/uL (4.2-5.4); White Blood Count 5.45 K/uL (4.8-10.8)
[2021-11-20 08:33] LABS: BUN Creatinine Ratio 10.4 (10-20); Calcium 9.1 mg/dl (8.5-10.1); Creatinine Clr Calc Pharmacy 30.8 ml/min; Est GFR (African American) 37.1 ml/min
[2021-11-20] MEDS: ACETAMINOPHEN 500 MG TAB PO SCH ×2 (08:33→20:15)
[2021-11-20] MEDS: INSULIN ASPART PER UNIT SC SCH ×4 (08:33→21:15)
[2021-11-20] MEDS: TAMSULOSIN HCL 0.4 MG CAP PO SCH (08:34)
[2021-11-20] MEDS: CHOLECALCIFEROL 1,000 UNITS 25 MCG TAB PO SCH (08:34)
[2021-11-20] MEDS: METOPROLOL SUCC 50MG EXT REL TAB PO SCH (08:34)
[2021-11-20] MEDS: OXcarbazepine 150 MG TABLET PO SCH ×2 (08:34→20:16)
[2021-11-20] MEDS: PANTOprazole 40 MG TAB PO SCH ×2 (08:34→20:16)
[2021-11-20] MEDS: HEPARIN SOD 5,000 UNIT/0.5 ML VIAL SQ SCH ×2 (08:34→20:17)
[2021-11-20] MEDS: ONDANSETRON INJ 2 MG/ML 2 ML VIAL IV PRN ×2 (12:38→19:22)
[2021-11-20] MEDS: MAGNESIUM OXIDE 400 MG TAB PO SCH (20:16)
[2021-11-20] MEDS: METOPROLOL SUCC 25MG EXT REL TAB PO SCH (20:16)
[2021-11-20] MEDS: ATORVASTATIN 40 MG TAB PO SCH (20:16)
[2021-11-20] MEDS: CLOPIDOGREL BISULFATE 75 MG TAB PO SCH (20:17)
--- NOTE | 2021-11-20 23:11 | Hospitalist Progress Note ---
Date of Service November 20, 2021 Assessment & Plan (1) Acute UTI: Plan: Patient on admission with left lower abdominal and flank pain CT abd/pelvis showed no significant change in urothelial thickening within both collecting systems and proximal ureters as well as bladder wall thickening with adjacent infiltration. Urine culture grew Klebsiella pneumonia that is pansensitive Currently on IV cefepime, will de-escalate to Rocephin WBC normalized Continue monitor closely History of recent left ureteral stent placement, left nephrolithiasis Urine culture grew Klebsiella Cefepime transition to Rocephin KUB showed no acute intra-abdominal abnormality. Left double-J ureteral stent, unchanged. Urology on board Plan to take to the OR for possible intervention for stone treatment vs. stent exchange.d conservative management for now continue Flomax and Pyridium as needed for pain History of chronic obstructive pulmonary disease and chronic respiratory failure : Current on oxygen 1 L with baseline 2L NC Continue her home inhalers. PERRI on chronic kidney disease stage III: Creatinine 1.9 on admission with creatinine at baseline, 1.4 Received IV fluid Creatinine continue to improve to 1.6 Continue monitor BMP Diabetes: Hemoglobin A1c 6.1 on 10/31 Glipizide on hold insulin sliding scale Continue monitor blood sugar History of colon cancer: Status post laparoscopic colectomy, total proctectomy and ileostomy, and ileoproctostomy in 2010. Morbid obesity: Counseling on weight loss Anemia: Hemoglobin 9.4 Continue monitor H&H Hyperlipidemia: Continue statin Hypertension: Continue metoprolol. Deep venous thrombosis prophylaxis: On heparin subcutaneous Admission and Anticipated Discharge Date Admission Date: November 18, 2021 Subjective Patient was seen and examined for follow-up of abdominal pain Lying in bed with no acute distress watching TV Patient said that she continues to have abdominal pain Currently she is on a full liquid diet because she does not want to increase her diet due to the pain Denies any chest pain, palpitation, dizziness, shortness of breath. Review of Systems Review of Systems: All systems reviewed & are unremarkable except as noted in Subjective Physical Exam Physical Exam: General- No acute distress Head- atraumatic Eyes- PERRL, EOMI, ENT- oropharynx clear Neck- supple, no JVD Lungs-No wheezing, no rales Heart- regular rhythm; no murmur Abdomen- normal bowel sounds, soft, +tenderness with deep palpation Extremities- no calf tenderness Neuro- alert, oriented x 3; PERRL, EOMI; no facial palsy; no dysarthria Skin- warm & dry Results & Data Results & Data ([facility]) Vital Signs (Past 12 Hours) Vital Signs Temp Pulse Pulse Resp BP Pulse Ox 11/20/21 22:00 36.9 C 90 20 101/67 99 11/20/21 19:00 36.9 C 86 20 114/78 99 11/20/21 15:57 36.8 C 88 16 109/74 99 11/20/21 14:47 90 11/20/21 12:55 37.0 C 87 16 104/69 97
[2021-11-21] MEDS: cefTRIAXone SODIUM 2,000 MG in DEXTROSE 5% 50 ML IV SCH (05:05)
[2021-11-21] MEDS: MoRPHine SULFATE 2 MG/ML CARP IV PRN ×3 (05:43→18:27)
[2021-11-21] MEDS: INSULIN ASPART PER UNIT SC SCH ×4 (09:00→20:16)
[2021-11-21] MEDS: HEPARIN SOD 5,000 UNIT/0.5 ML VIAL SQ SCH ×2 (09:01→20:03)
[2021-11-21] MEDS: ACETAMINOPHEN 500 MG TAB PO SCH ×2 (09:01→20:03)
[2021-11-21] MEDS: CHOLECALCIFEROL 1,000 UNITS 25 MCG TAB PO SCH (09:01)
[2021-11-21] MEDS: PANTOprazole 40 MG TAB PO SCH ×2 (09:02→20:03)
[2021-11-21] MEDS: OXcarbazepine 150 MG TABLET PO SCH ×2 (09:02→20:03)
[2021-11-21] MEDS: ONDANSETRON INJ 2 MG/ML 2 ML VIAL IV PRN ×2 (09:02→18:29)
[2021-11-21] MEDS: METOPROLOL SUCC 50MG EXT REL TAB PO SCH (09:02)
[2021-11-21] MEDS: TAMSULOSIN HCL 0.4 MG CAP PO SCH (09:02)
[2021-11-21 09:19] LABS: Hematocrit (blood only) 32.6 % (37-47); Hemoglobin 9.8 g/dL (12.0-16.0); Mean Corpuscular Hemoglobin 29.3 pg (25-34); Mean Corpuscular Hgb Conc 30.1 g/dL (32-36); Mean Corpuscular Volume 97.3 fL (80-100); Mean Platelet Volume 10.8 fL (7.4-10.4); Platelet Count 190 K/uL (130-400); RDW Coefficient of Variation 14.1 % (11.5-14.5); RDW Standard Deviation 50.4 fL (36.4-46.3); Red Blood Count 3.35 M/uL (4.2-5.4); White Blood Count 5.33 K/uL (4.8-10.8)
[2021-11-21 09:40] LABS: BUN Creatinine Ratio 8.6 (10-20); Calcium 9.3 mg/dl (8.5-10.1); Creatinine Clr Calc Pharmacy 31.1 ml/min; Est GFR (African American) 37.1 ml/min; Potassium 4.1 mmol/L (3.5-5.1)
[2021-11-21] MEDS: LIDOCAINE 5% 1 PATCH TD SCH (12:36)
[2021-11-21] MEDS: ATORVASTATIN 40 MG TAB PO SCH (20:03)
[2021-11-21] MEDS: METOPROLOL SUCC 25MG EXT REL TAB PO SCH (20:03)
[2021-11-21] MEDS: MAGNESIUM OXIDE 400 MG TAB PO SCH (20:03)
[2021-11-21] MEDS: CLOPIDOGREL BISULFATE 75 MG TAB PO SCH (20:04)
[2021-11-21] MEDS: PHENAZOPYRIDINE HCL 200 MG TAB PO PRN (20:04)
--- NOTE | 2021-11-21 21:10 | Hospitalist Progress Note ---
Date of Service November 21, 2021 Assessment & Plan (1) Acute UTI: Plan: Patient on admission with left lower abdominal and flank pain CT abd/pelvis showed no significant change in urothelial thickening within both collecting systems and proximal ureters as well as bladder wall thickening with adjacent infiltration. Urine culture grew Klebsiella pneumonia that is pansensitive Currently on IV cefepime, will de-escalate to Rocephin WBC normalized Continue Rocephin Continue monitor closely History of recent left ureteral stent placement, left nephrolithiasis Urine culture grew Klebsiella Cefepime transition to Rocephin KUB showed no acute intra-abdominal abnormality. Left double-J ureteral stent, unchanged. Urology on board Plan to take to the OR for possible intervention for stone treatment vs. stent exchange.d conservative management for now continue Flomax and Pyridium as needed for pain History of chronic obstructive pulmonary disease and chronic respiratory failure : Current on oxygen 1 L with baseline 2L NC Continue her home inhalers. PERRI on chronic kidney disease stage III: Creatinine 1.9 on admission with creatinine at baseline, 1.4 Received IV fluid Creatinine continue to improve to 1.6 Continue monitor BMP Diabetes: Hemoglobin A1c 6.1 on 10/31 Glipizide on hold insulin sliding scale Continue monitor blood sugar History of colon cancer: Status post laparoscopic colectomy, total proctectomy and ileostomy, and ileoproctostomy in 2010. Morbid obesity: Counseling on weight loss Anemia: Hemoglobin 9.4 Continue monitor H&H Hyperlipidemia: Continue statin Hypertension: Continue metoprolol. Deep venous thrombosis prophylaxis: On heparin subcutaneous Admission and Anticipated Discharge Date Admission Date: November 18, 2021 Subjective Patient was seen and examined for follow-up of abdominal pain Sitting in chair with no acute distress watching TV He said that she continues to have abdominal pain Denies any chest pain, palpitation, dizziness, shortness of breath. Review of Systems Review of Systems: All systems reviewed & are unremarkable except as noted in Subjective Physical Exam Physical Exam: General- No acute distress Head- atraumatic Eyes- PERRL, EOMI, ENT- oropharynx clear Neck- supple, no JVD Lungs-No wheezing, no rales Heart- regular rhythm; no murmur Abdomen- normal bowel sounds, soft, +tenderness with deep palpation Extremities- no calf tenderness Neuro- alert, oriented x 3; PERRL, EOMI; no facial palsy; no dysarthria Skin- warm & dry Results & Data Results & Data ([facility]) Vital Signs (Past 12 Hours) Vital Signs Temp Pulse Pulse Resp BP BP Pulse Ox 11/21/21 19:23 36.8 C 80 20 120/79 100 11/21/21 16:26 36.8 C 80 16 126/77 98 11/21/21 15:46 76 11/21/21 15:15 37.0 C 81 20 107/65 98 11/21/21 11:32 36.9 C 92 H 20 110/71 97 11/21/21 10:32 78
[2021-11-22] MEDS: ONDANSETRON INJ 2 MG/ML 2 ML VIAL IV PRN ×2 (00:29→18:01)
[2021-11-22] MEDS: MoRPHine SULFATE 2 MG/ML CARP IV PRN ×3 (00:30→18:01)
[2021-11-22] MEDS: cefTRIAXone SODIUM 2,000 MG in DEXTROSE 5% 50 ML IV SCH (05:33)
[2021-11-22] MEDS: INSULIN ASPART PER UNIT SC SCH ×4 (08:08→20:35)
[2021-11-22] MEDS: CHOLECALCIFEROL 1,000 UNITS 25 MCG TAB PO SCH (08:10)
[2021-11-22] MEDS: TAMSULOSIN HCL 0.4 MG CAP PO SCH (08:10)
[2021-11-22] MEDS: METOPROLOL SUCC 50MG EXT REL TAB PO SCH (08:11)
[2021-11-22] MEDS: LIDOCAINE 5% 1 PATCH TD SCH (08:12)
[2021-11-22] MEDS: PANTOprazole 40 MG TAB PO SCH ×2 (08:12→20:23)
[2021-11-22] MEDS: OXcarbazepine 150 MG TABLET PO SCH ×2 (08:12→20:22)
[2021-11-22] MEDS: HEPARIN SOD 5,000 UNIT/0.5 ML VIAL SQ SCH ×2 (08:15→20:25)
[2021-11-22] MEDS: ACETAMINOPHEN 500 MG TAB PO SCH ×2 (08:19→20:24)
--- NOTE | 2021-11-22 10:05 | Urology Progress Note ---
Date of Service November 22, 2021 Assessment & Plan (1) Acute UTI: (2) Ureteral calculus: Plan: Indwelling left ureteral stent Plan for n.p.o. after midnight in anticipation of possible procedure tomorrow Admission and Anticipated Discharge Date Admission Date: November 18, 2021 Subjective Subjectively continues to complain of ill feeling and generalized discomfort across her abdomen Hemodynamically she has remained stable aside from some mild hypotension She is anxious for surgery tomorrow to definitively deal with her issues Physical Exam Constitutional: well developed and well nourished Respiratory: no respiratory distress Cardiovascular: Extremities: no pedal edema Gastrointestinal (Abdomen): Inspection/Auscultation: abdomen normal to inspection Results & Data ([facility]) Vital Signs (Past 12 Hours) Vital Signs Temp Pulse Pulse Resp BP BP Pulse Ox 11/22/21 07:08 36.6 C 88 20 90/60 L 96 11/22/21 07:00 82 11/22/21 02:40 36.7 C 86 18 109/76 98 11/21/21 23:16 36.6 C 93 H 20 117/68 97 11/21/21 22:20 83 PG Care Time/CCT Total # of Minutes Spent Total Time Spent with Patient: Total time spent is greater than 50% in coordination of care (as documented) at patient's floor/unit and/or counseling patient: Coding Level of Care Code 47133 Subseq Hosp Care Lvl 2 Diagnoses Acute UTI N39.0 Ureteral calculus N20.1
--- NOTE | 2021-11-22 17:05 | Hospitalist Progress Note ---
Date of Service November 22, 2021 Assessment & Plan (1) Acute UTI: Plan: Patient on admission with left lower abdominal and flank pain CT abd/pelvis showed no significant change in urothelial thickening within both collecting systems and proximal ureters as well as bladder wall thickening with adjacent infiltration. Urine culture grew Klebsiella pneumonia that is pansensitive Currently on IV cefepime, will de-escalate to Rocephin WBC normalized Continue Rocephin Continue monitor closely History of recent left ureteral stent placement, left nephrolithiasis Urine culture grew Klebsiella Cefepime transition to Rocephin KUB showed no acute intra-abdominal abnormality. Left double-J ureteral stent, unchanged. Urology on board Plan to take to the OR for possible intervention for stone treatment vs. stent exchange.d conservative management in am continue Flomax and Pyridium as needed for pain Will make NPO after midnight History of chronic obstructive pulmonary disease and chronic respiratory failure : Current on oxygen 1 L with baseline 2L NC Continue her home inhalers. PERRI on chronic kidney disease stage III: Creatinine 1.9 on admission with creatinine at baseline, 1.4 Received IV fluid Creatinine continue to improve to 1.6 Continue monitor BMP Diabetes: Hemoglobin A1c 6.1 on 10/31 Glipizide on hold insulin sliding scale Continue monitor blood sugar History of colon cancer: Status post laparoscopic colectomy, total proctectomy and ileostomy, and ileoproctostomy in 2010. Morbid obesity: Counseling on weight loss Anemia: Hemoglobin 9.4 Continue monitor H&H Hyperlipidemia: Continue statin Hypertension: Continue metoprolol. Deep venous thrombosis prophylaxis: Will hold heparin subq tonight for possible procedure in am Admission and Anticipated Discharge Date Admission Date: November 18, 2021 Subjective Patient was seen and examined for follow-up of abdominal pain Lying in bed with no acute distress He said that she continues to have abdominal pain Urology plan to take to OR in am for ureteral stent management Denies any chest pain, palpitation, dizziness, shortness of breath. Review of Systems Review of Systems: All systems reviewed & are unremarkable except as noted in Subjective Physical Exam Physical Exam: General- No acute distress Head- atraumatic Eyes- PERRL, EOMI, ENT- oropharynx clear Neck- supple, no JVD Lungs-No wheezing, no rales Heart- regular rhythm; no murmur Abdomen- normal bowel sounds, soft, +tenderness with deep palpation Extremities- no calf tenderness Neuro- alert, oriented x 3; PERRL, EOMI; no facial palsy; no dysarthria Skin- warm & dry Results & Data Results & Data ([facility]) Vital Signs (Past 12 Hours) Vital Signs Temp Pulse Pulse Resp BP Pulse Ox 11/22/21 15:09 36.7 C 88 20 110/79 99 11/22/21 11:49 37.1 C 80 20 92/62 L 96 11/22/21 07:08 36.6 C 88 20 90/60 L 96 11/22/21 07:00 82
[2021-11-22] MEDS: ATORVASTATIN 40 MG TAB PO SCH (20:23)
[2021-11-22] MEDS: MAGNESIUM OXIDE 400 MG TAB PO SCH (20:23)
[2021-11-22] MEDS: CLOPIDOGREL BISULFATE 75 MG TAB PO SCH (20:23)
[2021-11-22] MEDS: METOPROLOL SUCC 25MG EXT REL TAB PO SCH (20:24)
[2021-11-23] MEDS: INSULIN ASPART PER UNIT SC SCH ×4 (00:20→18:52)
[2021-11-23] MEDS: MoRPHine SULFATE 2 MG/ML CARP IV PRN ×3 (00:41→22:26)
[2021-11-23] MEDS: ONDANSETRON INJ 2 MG/ML 2 ML VIAL IV PRN ×2 (00:42→17:33)
[2021-11-23] MEDS: cefTRIAXone SODIUM 2,000 MG in DEXTROSE 5% 50 ML IV SCH (05:49)
[2021-11-23] MEDS: CHOLECALCIFEROL 1,000 UNITS 25 MCG TAB PO SCH (07:16)
[2021-11-23] MEDS: METOPROLOL SUCC 50MG EXT REL TAB PO SCH (07:16)
[2021-11-23] MEDS: PANTOprazole 40 MG TAB PO SCH ×2 (07:17→20:19)
[2021-11-23] MEDS: TAMSULOSIN HCL 0.4 MG CAP PO SCH (07:17)
[2021-11-23] MEDS: OXcarbazepine 150 MG TABLET PO SCH ×2 (07:17→20:19)
[2021-11-23] MEDS: ACETAMINOPHEN 500 MG TAB PO SCH ×2 (07:28→20:18)
[2021-11-23] MEDS: LIDOCAINE 5% 1 PATCH TD SCH (07:34)
[2021-11-23 08:15] LABS: Hematocrit (blood only) 32.2 % (37-47); Hemoglobin 9.5 g/dL (12.0-16.0); Mean Corpuscular Hgb Conc 29.5 g/dL (32-36); Mean Corpuscular Volume 98.2 fL (80-100); Mean Platelet Volume 10.3 fL (7.4-10.4); Platelet Count 182 K/uL (130-400); RDW Coefficient of Variation 14.1 % (11.5-14.5); RDW Standard Deviation 50.4 fL (36.4-46.3); Red Blood Count 3.28 M/uL (4.2-5.4); White Blood Count 4.46 K/uL (4.8-10.8)
--- NOTE | 2021-11-23 08:16 | Urology Progress Note ---
Date of Service November 23, 2021 Assessment & Plan (1) Complicated UTI (urinary tract infection): (2) S/P ureteral stent placement: Plan: 66yo F with a complex past medical historyadmitted with UTI and PERRI - Plan of care reviewed with Dr. Adam. - Hx of left ureteral stent placement on 10/12/21. - Pt afebrile, lab work reviewed - Wbc 4.46, Creatinine 1.63 - Continue to trend - Urine culture final with Klebsiella, blood cultures final no growth. Continues on IV Ceftriaxone. - Given she remains inpatient and has remained hemodynamically stable, will plan to proceed to OR today for Cystoscopy, Left retrograde pyelogram and Left stent exchange, possible Ureteroscopy, laser lithotripsy/stone treatment depending on findings. - Risks and benefits to be reviewed with patient by Dr. Adam. OR notified. Covid test negative. Covered with scheduled IV Ceftriaxone. - Currently on IV Ceftriaxone. Will also add IV Cipro preoperatively and IV Fluconazole given prior cultures showing yeast. - Patient agreeable to plan, all questions were answered. - Keep NPO. - Continue supportive care, antibiotic therapy, and management per primary team. - Will continue to follow. ATTENDING NOTE: Independently evaluated, assessed, examined, and interviewed. Agree with above findings. Risks and benefits discussed at length for procedure. These include bleeding, infection, injury to surrounding tissues or organs, and risks associated with anesthesia. Patient states understanding and agrees to proceed. Will sign consent and proceed Plan for cystoscopy with left ureteroscopy and stone treatment. Admission and Anticipated Discharge Date Admission Date: November 18, 2021 Subjective Pt examined at bedside this AM. Awake, resting in bed on arrival. No acute distress. No fevers or chills. Still with left flank/suprapubic pain. Voiding without issue. Feels she is emptying her bladder. Denies hematuria/dysuria. Has been NPO. Review of Systems Constitutional: as per Subjective / HPI Gastrointestinal: as per Subjective / HPI Genitourinary: as per Subjective / HPI Physical Exam Constitutional: + obese; no acute distress Respiratory: no respiratory distress and no labored breathing Gastrointestinal (Abdomen): Inspection/Auscultation: abdomen normal to inspection; abdomen not distended Percussion/Palpation: + abdomen tender (mildly tender to palpation on left lower abdomen) and abdomen soft Musculoskeletal: Head/Neck/Chest: normocephalic and head atraumatic Skin: No visible rashes or lesions to exposed skin areas Neurologic: awake Psychiatric: Orientation: alert and oriented x 3 Genitourinary: Tenderness to palpation on left flank Results & Data ([facility]) Vital Signs (Past 12 Hours) Vital Signs Temp Pulse Pulse Resp BP Pulse Ox 11/23/21 07:37 36.7 C 86 20 135/84 97 11/23/21 03:00 36.7 C 87 16 118/83 97 11/22/21 23:40 36.6 C 79 18 105/75 98 11/22/21 22:19 87 PG Care Time/CCT Total # of Minutes Spent Total Time Spent with Patient: Total time spent is greater than 50% in coordination of care (as documented) at patient's floor/unit and/or counseling patient: Coding Level of Care Code 19758 Subseq Hosp Care Lvl 2 Diagnoses Complicated UTI (urinary tract infection) N39.0 S/P ureteral stent placement Z96.0
[2021-11-23 08:36] LABS: BUN Creatinine Ratio 7.4 (10-20); Calcium 9.1 mg/dl (8.5-10.1); Creatinine Clr Calc Pharmacy 29.6 ml/min; Est GFR (African American) 37.1 ml/min; Potassium 3.7 mmol/L (3.5-5.1)
[2021-11-23] MEDS ORDERED: CIPROFLOXACIN / D5W 400 MG/200 ML BAG IV ONE (11:00)
[2021-11-23] MEDS ORDERED: PROPOFOL IV EMULSION 10 MG/ML 20 ML VIAL IV ONE (11:07)
[2021-11-23] MEDS ORDERED: LIDOCAINE 2% 2 ML VIAL/AMP(20MG/ML) INFIL ONE (11:07)
[2021-11-23] MEDS ORDERED: fentaNYL citrate 100 MCG/2 ML VIAL ONE ×2 (11:07→12:59)
[2021-11-23] MEDS ORDERED: MIDAZOLAM HCL 1 MG/ML 2ML VIAL ONE (11:07)
--- NOTE | 2021-11-23 11:39 | Anesthesiology Consultation ---
Date of Service November 23, 2021 Assessment & Plan Chart Review Chart Review: Acceptable Risk for Surgery Consults Requested none History Surgery Operation Date: 11/23/21 08:50 Proposed Procedures p Cystoscopy Left Retrograde Pyelogram Left Stent Exchange, Possible Ureteroscopy Laser Lithotropsy Stone Treatment - Rajan Adam, Height/Weight Height: 4 ft 11 in Weight: 77.2 kg Allergies Allergy/AdvReac Type Severity Reaction Status Date / Time fentanyl Allergy Severe itching/felt Verified 11/17/21 20:25 like throat closing salicylates Allergy Severe SHORTNESS Verified 11/17/21 20:25 OF BREATH Iodinated Contrast Media Allergy Intermediate EYES Verified 11/17/21 20:25 SWELLING/Hives amoxicillin [From Augmentin] Allergy Mild Rash Verified 11/17/21 20:25 aspirin Allergy Mild FACIAL Verified 11/17/21 20:25 SWELLING clavulanic acid Allergy Mild Rash Verified 11/17/21 20:25 [From Augmentin] hydromorphone Allergy Mild RASH/ITCHIN Verified 11/17/21 20:25 G meperidine AdvReac Intermediate ITCH Verified 11/17/21 20:25 morphine AdvReac Intermediate ITCH Verified 11/17/21 20:25 tramadol AdvReac Mild itch Verified 11/17/21 20:25 Medications Home Medications Medication Instructions Recorded Confirmed Last Taken atorvastatin 40 mg tablet (Lipitor) 40 mg PO QPM 07/12/18 11/17/21 11/16/21 clopidogrel 75 mg tablet (Plavix) 75 mg PO QPM 07/12/18 11/17/21 11/16/21 pantoprazole 40 mg tablet,delayed 40 mg PO BID 07/12/18 11/17/21 11/17/21 08:00 release (Protonix) riboflavin (vitamin B2) 400 mg 400 mg PO QPM 07/12/18 11/17/21 11/16/21 tablet cholecalciferol (vitamin D3) 50 2,000 unit PO QAM 05/16/19 11/17/21 11/17/21 mcg (2,000 unit) capsule (Vitamin D3) albuterol sulfate 90 mcg/actuation 2 puff INHALATION Q4H PRN 07/21/19 11/17/21 09/13/21 aerosol inhaler magnesium oxide 400 mg PO HS 10/05/19 11/17/21 11/16/21 fluticasone fur. 100 mcg-umeclid 1 inh INHALATION DAILY PRN 12/11/20 11/17/21 09/13/21 62.5 mcg-vilant 25 mcg inhalat.powder (Trelegy Ellipta) metoprolol succinate 25 mg 25 mg PO PM tab 12/11/20 11/17/21 11/16/21 tablet,extended release 24 hr metoprolol succinate 50 mg 50 mg PO QAM 12/11/20 11/17/21 11/17/21 tablet,extended release 24 hr glipizide 2.5 mg tablet, extended 2.5 mg PO PM 04/29/21 11/17/21 11/16/21 release 24 hr (Glucotrol XL) ondansetron 4 mg disintegrating 4 mg PO Q8H PRN #10 tab 06/02/21 11/17/21 09/13/21 tablet acetaminophen 500 mg tablet 1,000 mg PO AMHS 10/11/21 11/17/21 11/17/21 08:00 (Tylenol Extra Strength) oxcarbazepine 300 mg tablet 300 mg PO BID 10/11/21 11/17/21 11/17/21 08:00 loperamide 2 mg capsule 2 mg PO TID PRN #30 cap 11/09/21 11/17/21 Unknown phenazopyridine 100 mg tablet 100 mg PO TID PRN #30 tab 11/09/21 11/17/21 Unknown (Pyridium) tamsulosin 0.4 mg capsule 0.4 mg PO QAM 30 Days #30 cap 11/09/21 11/17/21 11/17/21 Active Medications Generic Name Dose Route Start Last Admin Trade Name Freq PRN Reason Stop Dose Admin Acetaminophen 1,000 mg 11/18/21 09:00 11/23/21 07:28 Acetaminophen 500 Mg Tab PO 12/18/21 08:59 Not Given BID MARLA Atorvastatin Calcium 40 mg 11/18/21 21:00 11/22/21 20:23 Atorvastatin 40 Mg Tab PO 12/18/21 20:59 40 mg QPM MARAL Administration Clopidogrel Bisulfate 75 mg 11/18/21 21:00 11/22/21 20:23 Clopidogrel Bisulfate 75 Mg Tab PO 12/18/21 20:59 75 mg QPM MARLA Administration Heparin Sodium (Porcine) 5,000 units 11/20/21 09:00 11/22/21 20:25 Heparin Sod 5,000 Unit/0.5 Ml Vial SQ 12/20/21 08:59 5,000 units Q12 MARLA Administration Ceftriaxone Sodium 2,000 mg/ 70 mls @ 140 mls/hr 11/20/21 06:00 11/23/21 06:18 Dextrose IV 11/30/21 05:59 Infused Q24H MARLA Infusion Insulin Aspart 0 units 11/23/21 00:00 11/23/21 05:49 Insulin Aspart Per Unit SC 12/23/21 00:00 Not Given Q6 MARLA Lidocaine 1 patch 11/21/21 12:00 11/23/21 07:34 Lidocaine 5% 1 Patch TD 12/21/21 11:59 1 patch QAM [facility] Administration Magnesium Oxide 400 mg 11/18/21 21:00 11/22/21 20:23 Magnesium Oxide 400 Mg Tab PO 12/18/21 20:59 400 mg HS MARLA Administration Metoprolol Succinate 50 mg 11/18/21 09:00 11/23/21 07:16 Metoprolol Succ 50mg Ext Rel Tab PO 12/18/21 08:59 Not Given QAM MARLA Metoprolol Succinate 25 mg 11/18/21 21:00 11/22/21 20:24 Metoprolol Succ 25mg Ext Rel Tab PO 12/18/21 20:59 Not Given PM [facility] Miscellaneous 1 ea 11/21/21 21:00 11/22/21 20:26 Remove Lidoderm Patch N/A 12/21/21 20:59 1 ea DAILY@2100 MARLA Administration Morphine Sulfate 2 mg 11/18/21 13:03 11/23/21 00:41 Morphine Sulfate 2 Mg/Ml Carp IV 12/02/21 13:02 2 mg Q6H PRN Administration Pain Ondansetron HCl 4 mg 11/18/21 03:01 11/23/21 00:42 Ondansetron Inj 2 Mg/Ml 2 Ml Vial IV 12/18/21 03:00 4 mg Q6H PRN Administration Nausea Oxcarbazepine 300 mg 11/18/21 09:00 11/23/21 07:17 Oxcarbazepine 150 Mg Tablet PO 12/18/21 08:59 Not Given BID MARLA Pantoprazole Sodium 40 mg 11/18/21 09:00 11/23/21 07:17 Pantoprazole 40 Mg Tab PO 12/18/21 08:59 Not Given BID MARLA Phenazopyridine HCl 200 mg 11/19/21 23:45 11/21/21 20:04 Phenazopyridine Hcl 200 Mg Tab PO 12/19/21 23:44 200 mg TID PRN Administration Bladder pain Tamsulosin HCl 0.4 mg 11/18/21 09:00 11/23/21 07:17 Tamsulosin Hcl 0.4 Mg Cap PO 12/18/21 08:59 Not Given QAM [facility] Vitamin D 2,000 units 11/18/21 09:00 11/23/21 07:16 Cholecalciferol 1,000 Units 25 Mcg Tab PO 12/18/21 08:59 Not Given QAM MARLA NPO Date Last Intake of Fluids: 11/22/21 Time Last Intake of Fluids: 23:00 Date Last Intake of Solids: 11/22/21 Time Last Intake of Solids: 23:00 Past Medical History Medical History Acute UTI (urinary tract infection) has presently per pt Anxiety Asthma well controlled per pt, rare inh use CHF (congestive heart failure) follows with Dr. Singh Chronic back pain Chronic headaches Chronic renal insufficiency stage 3, following with [facility] ([place]) Chronic respiratory failure with hypoxia Was on home oxygen in the past but no longer using at this time CKD (chronic kidney disease) COPD (chronic obstructive pulmonary disease) Deep vein thrombosis LLE - COULD NOT RECALL DATE - REPORTS SHE WAS TREATED AT [facility] W/ BLOOD THINNERS Depression Diabetes mellitus, type 2 GERD (gastroesophageal reflux disease) History of colon cancer 2012 S/P BOWEL RESECTION. History of COVID-27 Sep 2020 HTN (hypertension) Hyperlipidemia Mood disorder Morbid obesity with BMI of 40.0-44.9, adult Myocardial Infarction 06/2016--> [facility] -- CARDIAC CATH --> normal coronary anatomy without coronary obstruction but Plavix started per [facility] discharge summary On anticoagulant therapy plavix daily CALI (obstructive sleep apnea) Poor historian Seizure Pt states "i think i had them a long time ago". no other information. No hx of seizures noted in records Sinus tachycardia Follows with cardio Past Family History Family History Other Breast cancer Past Surgical History Surgical History H/O hand surgery RIGHT History of appendectomy History of bilateral cataract extraction History of blepharoplasty History of cardiac cath 03/2018 - [place] - DENIES STENTS/ANGIOPLASTY - [facility] - FOLLOWS W/ DR. SINGH History of closure of ileostomy History of colectomy due to colon cancer History of colonoscopy History of cystoscopy History of esophageal dilatation History of esophagogastroduodenoscopy (EGD) History of hysterectomy History of kidney surgery at age 9 yrs "something was wrong and had to fix it" History of lithotripsy History of tooth extraction History of total abdominal hysterectomy and bilateral salpingo-oophorectomy Hx of cholecystectomy Social History Smoking Status: Never smoker tobacco type: cigarettes Hx Alcohol Use: No Hx Substance Use: No substance use type: does not use Last Used Substance Other:: hasnt used for at least 1 year Physical Exam Vital Signs Last Vital Signs Temp 36.9 C 11/23/21 11:32 Pulse 116 H 11/23/21 11:32 Resp 18 11/23/21 11:32 BP 150/101 H 11/23/21 11:32 Pulse Ox 97 11/23/21 11:32 Testing Laboratory Results 11/23/21 07:58 11/23/21 07:58 Urine Color [place] 11/17/21 14:30 Urine Appearance Turbid (Clear) A 11/17/21 14:30 Urine pH (4.5-7.5) 11/17/21 14:30 Ur Specific [place] 1.013 (1.000-1.030) 11/17/21 14:30 Urine Protein (Negative) 11/17/21 14:30 Urine Glucose (UA) (Negative) 11/17/21 14:30 Urine Ketones (Negative) 11/17/21 14:30 Urine Nitrite (Negative) 11/17/21 14:30 Ur Leukocyte Esterase (Negative) 11/17/21 14:30 Urine RBC 5-10 /hpf (0-4) H 11/17/21 14:30 Urine WBC >30 /hpf (0-5) H 11/17/21 14:30 Ur Epithelial Cells 5-10 /lpf (0-5) H 11/17/21 14:30 11/17/21 20:09 Aerobic Blood Culture - Final Blood No growth in Aerobic bottle after 5 days. Anaerobic Blood Culture - Final No growth in Anaerobic bottle after 5 days. 11/17/21 21:36 Aerobic Blood Culture - Final Blood No growth in Aerobic bottle after 5 days. Anaerobic Blood Culture - Final 11/17/21 14:30 Urine Culture - Final Urine,Clean Catch Klebsiella pneumoniae 11/23/21 11/23/21 05:47 00:14 POC Glucose 107 H 107 H
[2021-11-23] MEDS ORDERED: ONDANSETRON INJ 2 MG/ML 2 ML VIAL IV PRN (11:42)
[2021-11-23] MEDS ORDERED: ATROPINE SULFATE 0.1 MG/ML 10ML SYR IV PRN (11:42)
[2021-11-23] MEDS ORDERED: ePHEDrine sulfate 50 MG/ML AMP IV PRN (11:42)
[2021-11-23] MEDS ORDERED: PROMETHAZINE HCL 12.5 MG in SODIUM CHLORIDE 0.9% 50 ML IV PRN (11:42)
[2021-11-23] MEDS ORDERED: ONDANSETRON INJ 2 MG/ML 2 ML VIAL ONE (12:25)
[2021-11-23] MEDS ORDERED: DIATRIZOATE MEGLUMINE 30% 100ML VIAL INSTIL PRN (12:30)
--- NOTE | 2021-11-23 12:37 | Operative Report ---
PG Post Operative Report Pre & Post Diagnosis Left Ureteral Stone Same Operation Date: 11/23/21 08:50 <No data on this case meets the specified criteria> I identified the patient and participated in the time-out.: Yes Procedure Cystoscopy with left ureteroscopy, laser lithotripsy, stone basket extraction, retrograde pyelogram, and stent exchange. Operation Date: 11/23/21 08:50 <No data on this case meets the specified criteria> Surgeon Rajan Adam, II, DO Data Entry Processor None Estimated Blood Loss 1 Findings Consistent with Post-Op Diagnosis Stone in ureter removed. Renal stones destroyed to dust and small fragments and larger fragments removed. Specimens Stone Fragment left ureter Drains 6 Fr x 24 cm Anesthesia Type General Complications none Disposition Disposition: Recovery Room Indications Patient with bothersome stones with multiple readmissions for stone and UTI. Risks and benefits discussed at length. Description of Procedure Patient was consented and brought back to the operating room. Patient was placed under anesthesia in the supine position and moved to the dorsal lithotomy position. Patient was prepped and draped in the regular sterile fashion. A time out was completed. A 30degree Cystoscope was placed into the bladder and the entire bladder was examined. The UO's were identified. The UO was cannulized with a catheter and a retrograde pyelogram was completed. A wire was then placed. The Rigid ureteroscope was taken into the ureter. The stone was identified. The stone was grasped with the basket and removed. This was then sent for analysis. A second wire was then placed and the rigid scope removed. A ureteral access sheath was then placed. The flexible scope was then taken into the sheath and advanced to the proximal ureter and renal pelvis. The entire pelvis was examined and the stones were identified in the lower pole. The renal pelvis was found to be significant dilated. A laser fiber was selected and the stones were pulverized to dust and small fragments. The entire area was once again examined. No residual large fragments or areas of concern were noted. The scope was slowly removed with the wire left in place. Contrast was placed through the scope for a pyelogram to assist in stent placement. The entire ureter was examined as the scope was slowly removed. No obstructions or other areas of concern were noted. With the wire in place, a 6 Fr Double J stent was placed. It was confirmed with fluoroscopy. With the stent in place, the bladder was emptied. The scope was removed. The patient was cleaned, aroused from anesthesia, and transferred to the pacu in stable condition having tolerated the procedure well with no complications. I was present and participated in all aspects of the procedure. The patient will be monitored in the PACU until transferred. Plan to remove stent in 2-3 weeks in office. I attest to the content of the Intraoperative Record and any orders documented therein. Any exceptions are noted below.
[2021-11-23] MEDS: fentaNYL citrate 100 MCG/2 ML VIAL IV PRN ×3 (13:01→13:15)
--- NOTE | 2021-11-23 13:06 | Fluoroscopy Report ---
FL retrograde includes kub HISTORY: 66 years-old Female LT left-sided cystourethrogram COMPARISON: CT abdomen pelvis 11/17/2021 TECHNIQUE: 9 spot fluoroscopic images of the abdomen and pelvis were obtained utilizing 16 seconds of fluoroscopy time. FINDINGS: A left-sided ureteroscope is present with a guidewire. There is an ovoid opacified structure which is suggestive of a dilated renal pelvis. The left ureter is not opacified. Additionally, there is a lar ge area of contrast within the expected location of the left retroperitoneum suggestive of extravasat ed contrast outside of the renal collecting system. Subsequent images demonstrate placement of a left ureteral stent which appears to be in satisfactory positioning. IMPRESSION: Fluoroscopic assistance as above. ACT 112: Negative or not required by law. The above report was generated using voice recognition software. It may contain grammatical, syntax o r spelling errors. Electronically signed by: Lang Calderon M.D. 11/23/2021 1:05 PM
--- NOTE | 2021-11-23 13:10 | Anesthesiology Progress Note ---
Date of Service November 23, 2021 Anesthesia Post Procedure Vital Signs Vital Signs: Temp Pulse Pulse Pulse Resp BP BP 11/23/21 13:45 36.3 C L 102 H 15 125/105 H 127/87 11/23/21 13:35 109 H 18 125/105 H 11/23/21 13:25 142 H 13 136/89 11/23/21 13:15 140 H 17 132/95 11/23/21 13:05 138 H 18 110/91 11/23/21 12:55 139 H 18 139/103 H 11/23/21 12:46 36.1 C L 145 H 20 123/80 11/23/21 11:32 36.9 C 116 H 18 150/101 H 11/23/21 07:37 36.7 C 86 20 135/84 11/23/21 03:00 36.7 C 87 16 118/83 11/22/21 23:40 36.6 C 79 18 105/75 11/22/21 22:19 87 11/22/21 19:11 37 C 84 18 98/67 L 11/22/21 15:09 36.7 C 88 20 110/79 Pulse Ox 11/23/21 13:45 96 11/23/21 13:35 98 11/23/21 13:25 95 11/23/21 13:15 97 11/23/21 13:05 99 11/23/21 12:55 98 11/23/21 12:46 100 11/23/21 11:32 97 11/23/21 07:37 97 11/23/21 03:00 97 11/22/21 23:40 98 11/22/21 22:19 11/22/21 19:11 98 11/22/21 15:09 99 Pain Intensity Left Abdomen: Pain Intensity: 8 Left Lower Back: Pain Intensity: 9 Transfer of Care Handoff Completed per policy Notes Mental Status: alert / awake / arousable and participated in evaluation Patient Amnestic to Procedure: Yes Nausea / Vomiting: adequately controlled Pain: adequately controlled Airway Patency, RR, SpO2: stable & adequate BP & HR: stable & adequate Hydration State: stable & adequate Anesthetic Complications: no major complications apparent
[2021-11-23] MEDS: FLUCONAZOLE 100 MG/50 ML BAG IV SCH (15:44)
[2021-11-23] MEDS ORDERED: METOPROLOL TARTRATE 1 MG/ML VIAL IV STA ×2 (17:57→19:54)
[2021-11-23] MEDS ORDERED: ACETAMINOPHEN 1000 MG/100 ML IV IV ONE ×2 (19:54→20:04)
[2021-11-23] MEDS ORDERED: LACTATED RINGER'S 1,000 ML IV ONE (19:57)
[2021-11-23] MEDS ORDERED: METOPROLOL TARTRATE 1 MG/ML VIAL IV ONE (20:03)
[2021-11-23] MEDS: CLOPIDOGREL BISULFATE 75 MG TAB PO SCH (20:18)
[2021-11-23] MEDS: ATORVASTATIN 40 MG TAB PO SCH (20:18)
[2021-11-23] MEDS: METOPROLOL SUCC 25MG EXT REL TAB PO SCH (20:18)
[2021-11-23] MEDS: MAGNESIUM OXIDE 400 MG TAB PO SCH (20:24)
[2021-11-23] MEDS: POTASSIUM CHLORIDE / WTR 10 MEQ/100 ML PLCT IV SCH ×4 (20:54→23:47)
[2021-11-23] MEDS: HEPARIN SOD 5,000 UNIT/0.5 ML VIAL SQ SCH (20:56)
--- NOTE | 2021-11-23 21:53 | Hospitalist Progress Note ---
Date of Service November 23, 2021 Assessment & Plan (1) Acute UTI: Plan: Patient on admission with left lower abdominal and flank pain CT abd/pelvis showed no significant change in urothelial thickening within both collecting systems and proximal ureters as well as bladder wall thickening with adjacent infiltration. Urine culture grew Klebsiella pneumonia that is pansensitive Initially was started on IV cefepime then transition to Rocephin. Continue Rocephin Continue monitor closely History of recent left ureteral stent placement, left nephrolithiasis Urine culture grew Klebsiella Cefepime transition to Rocephin KUB showed no acute intra-abdominal abnormality. Left double-J ureteral stent, unchanged. Urology on board Plan to take to the OR for possible intervention for stone treatment vs. stent exchange this morning continue Flomax and Pyridium as needed for pain N.p.o. for now due to urology procedure History of chronic obstructive pulmonary disease and chronic respiratory failure : Current on oxygen 1 L with baseline 2L NC Continue her home inhalers. PERRI on chronic kidney disease stage III: Creatinine 1.9 on admission with creatinine at baseline, 1.4 Received IV fluid Creatinine continue to improve to 1.6 Continue monitor BMP Diabetes: Hemoglobin A1c 6.1 on 10/31 Glipizide on hold insulin sliding scale Continue monitor blood sugar History of colon cancer: Status post laparoscopic colectomy, total proctectomy and ileostomy, and ileoproctostomy in 2010. Morbid obesity: Counseling on weight loss Anemia: Hemoglobin 9.5 Continue monitor H&H Hyperlipidemia: Continue statin Hypertension: Continue metoprolol. Deep venous thrombosis prophylaxis:Heparin on hold anticipating surgical procedure this morning Admission and Anticipated Discharge Date Admission Date: November 18, 2021 Subjective Patient was seen and examined for follow-up of abdominal pain Sitting in chair with no acute distress she she said that she continues to have abdominal pain Urology plan to take to OR in am for ureteral stent managementthis morning Denies any chest pain, palpitation, dizziness, shortness of breath. Review of Systems Review of Systems: All systems reviewed & are unremarkable except as noted in Subjective Physical Exam Physical Exam: General- No acute distress Head- atraumatic Eyes- PERRL, EOMI, ENT- oropharynx clear Neck- supple, no JVD Lungs-No wheezing, no rales Heart- regular rhythm; no murmur Abdomen- normal bowel sounds, soft, +tenderness with deep palpation Extremities- no calf tenderness Neuro- alert, oriented x 3; PERRL, EOMI; no facial palsy; no dysarthria Skin- warm & dry Results & Data Results & Data ([facility]) Vital Signs (Past 12 Hours) Vital Signs Temp Pulse Pulse Pulse Pulse Resp BP 11/23/21 20:09 126 H 137/77 11/23/21 20:07 38.8 C H 126 H 24 11/23/21 19:42 38.8 C H 126 H 20 11/23/21 16:14 106 H 11/23/21 14:58 36.7 C 101 H 20 11/23/21 13:55 103 H 14 11/23/21 13:45 36.3 C L 102 H 15 11/23/21 13:35 109 H 18 11/23/21 13:25 142 H 13 11/23/21 13:15 140 H 17 11/23/21 13:05 138 H 18 11/23/21 12:55 139 H 18 11/23/21 12:46 36.1 C L 145 H 20 11/23/21 11:32 36.9 C 116 H 18 BP BP Pulse Ox 11/23/21 20:09 11/23/21 20:07 137/77 96 11/23/21 19:42 137/77 95 11/23/21 16:14 11/23/21 14:58 120/86 99 11/23/21 13:55 118/90 97 11/23/21 13:45 125/105 H 127/87 96 11/23/21 13:35 125/105 H 98 11/23/21 13:25 136/89 95 11/23/21 13:15 132/95 97 11/23/21 13:05 110/91 99 11/23/21 12:55 139/103 H 98 11/23/21 12:46 123/80 100 11/23/21 11:32 150/101 H 97
[2021-11-24] MEDS: INSULIN ASPART PER UNIT SC SCH ×4 (00:03→19:11)
[2021-11-24] MEDS: ONDANSETRON INJ 2 MG/ML 2 ML VIAL IV PRN ×2 (00:18→08:16)
[2021-11-24] MEDS ORDERED: dilTIAZem HCl 5 MG/ML 5 ML VIAL IV STA (01:42)
[2021-11-24] MEDS: MAGNESIUM SULFATE / D5W 1 GM/100 ML BAG IV SCH ×4 (02:21→08:12)
[2021-11-24] MEDS ORDERED: metroNIDAZOLE 500 MG TAB PO STA (03:19)
[2021-11-24] MEDS ORDERED: LACTATED RINGER'S 1,000 ML IV ONE (03:24)
[2021-11-24] MEDS ORDERED: DIGOXIN 250 MCG in SYRINGE 9 ML IV STA (03:26)
[2021-11-24] MEDS ORDERED: metroNIDAZOLE 500 MG/100 ML BAG IV STA (03:28)
[2021-11-24] MEDS ORDERED: ACETAMINOPHEN 65 ML IV ONE (03:30)
[2021-11-24] MEDS: cefTRIAXone SODIUM 2,000 MG in DEXTROSE 5% 50 ML IV SCH (06:07)
--- NOTE | 2021-11-24 07:55 | Urology Progress Note ---
Date of Service November 24, 2021 Assessment & Plan (1) Complicated UTI (urinary tract infection): (2) Left ureteral stone: (3) S/P ureteral stent placement: Plan: - Pt POD #1 s/p cystoscopy with left ureteroscopy, laser lithotripsy, stone basket extraction, and left stent exchange. - Displaying possible signs of sepsis post procedure as she has after prior urologic interventions. - Febrile and tachycardic overnight and this AM, normotensive. - Lab work reviewed - creatinine 1.93, WBC 10.18, Hgb 10.4. - Urine culture 11/17 on admission grew out Klebsiella, BCx 11/17 no growth to date. - Currently on IV Ceftriaxone since admission, IV Fluconazole initiated yeste rday. - Voiding spontaneously, continue to monitor. - Continue supportive care and acute management per hospital medicine. - Will continue to follow. Admission and Anticipated Discharge Date Admission Date: November 18, 2021 Subjective Pt seen and examined at bedside this AM. She is resting in bed, appears uncomfortable, mild shaking. Subjectively feeling poorly. She reports left flank and abdominal pain. Reports chills and nausea at present. Per RN at bedside, she was recently given Zofran, Phenergan and Morphine. Per chart review, febrile overnight - Tmax 39.4 on 11/24 at 0309; tachycardic, normotensive. Voiding spontaneously, notes hematuria post op, no dysuria. Review of Systems Constitutional: as per Subjective / HPI Gastrointestinal: as per Subjective / HPI Genitourinary: as per Subjective / HPI Physical Exam Constitutional: + ill appearing and + obese appears uncomfortable, mild shaking/chills, but no acute distress Respiratory: no respiratory distress and no labored breathing Cardiovascular: Extremities: no pedal edema Gastrointestinal (Abdomen): Inspection/Auscultation: abdomen normal to inspection; abdomen not distended Percussion/Palpation: + abdomen tender (mild tenderness to palpation left abdomen) and abdomen soft Musculoskeletal: Head/Neck/Chest: normocephalic and head atraumatic Skin: slightly diaphoretic, no visible rashes noted Neurologic: awake appears somnolent but answers questions Psychiatric: Orientation: alert and oriented x 3 Genitourinary: mild tenderness left flank Results & Data ([facility]) Vital Signs (Past 12 Hours) Vital Signs Temp Pulse Pulse Resp BP BP BP 11/24/21 07:33 38.1 C H 127 H 20 119/81 11/24/21 07:29 102 H 11/24/21 06:08 37.5 C 105 H 18 122/74 11/24/21 06:00 11/24/21 04:32 37.6 C H 11/24/21 03:56 122 H 11/24/21 03:09 39.4 C H 135 H 18 103/66 11/24/21 01:32 37.3 C 132 H 18 139/84 11/23/21 23:26 37.6 C H 115 H 16 125/84 11/23/21 22:18 119 H 11/23/21 22:12 37.8 C H 11/23/21 20:09 126 H 137/77 11/23/21 20:07 38.8 C H 126 H 24 137/77 Pulse Ox Pulse Ox 11/24/21 07:33 91 11/24/21 07:29 11/24/21 06:08 96 11/24/21 06:00 96 11/24/21 04:32 11/24/21 03:56 11/24/21 03:09 96 11/24/21 01:32 97 11/23/21 23:26 98 11/23/21 22:18 11/23/21 22:12 11/23/21 20:09 11/23/21 20:07 96 PG Care Time/CCT Total # of Minutes Spent Total Time Spent with Patient: Total time spent is greater than 50% in coordination of care (as documented) at patient's floor/unit and/or counseling patient: Coding Level of Care Code 77719 Subseq Hosp Care Lvl 2 Diagnoses Complicated UTI (urinary tract infection) N39.0 Left ureteral stone N20.1 S/P ureteral stent placement Z96.0
[2021-11-24] MEDS: MoRPHine SULFATE 2 MG/ML CARP IV PRN ×4 (08:17→21:45)
[2021-11-24] MEDS: FLUCONAZOLE 100 MG/50 ML BAG IV SCH (08:19)
[2021-11-24] MEDS: ACETAMINOPHEN 500 MG TAB PO SCH ×3 (08:22→20:09)
[2021-11-24] MEDS: PROMETHAZINE HCL 12.5 MG in SODIUM CHLORIDE 0.9% 50 ML IV PRN (08:23)
[2021-11-24] MEDS ORDERED: ACETAMINOPHEN 1,000 MG/100 ML VIAL IV STA (09:02)
[2021-11-24] MEDS: METOPROLOL SUCC 50MG EXT REL TAB PO SCH (09:17)
[2021-11-24] MEDS: OXcarbazepine 150 MG TABLET PO SCH ×2 (09:17→20:10)
[2021-11-24] MEDS: TAMSULOSIN HCL 0.4 MG CAP PO SCH (09:17)
[2021-11-24] MEDS: CHOLECALCIFEROL 1,000 UNITS 25 MCG TAB PO SCH (09:17)
[2021-11-24] MEDS: PANTOprazole 40 MG TAB PO SCH ×2 (09:17→20:10)
[2021-11-24] MEDS: LIDOCAINE 5% 1 PATCH TD SCH (09:18)
[2021-11-24] MEDS: METOPROLOL TARTRATE 1 MG/ML VIAL IV SCH ×3 (09:20→17:23)
[2021-11-24 09:40] LABS: Hematocrit (blood only) 33.8 % (37-47); Hemoglobin 10.4 g/dL (12.0-16.0); Mean Corpuscular Hemoglobin 29.6 pg (25-34); Mean Corpuscular Hgb Conc 30.8 g/dL (32-36); Mean Corpuscular Volume 96.3 fL (80-100); Mean Platelet Volume 10.9 fL (7.4-10.4); Platelet Count 139 K/uL (130-400); RDW Coefficient of Variation 14.4 % (11.5-14.5); RDW Standard Deviation 50.7 fL (36.4-46.3); Red Blood Count 3.51 M/uL (4.2-5.4); White Blood Count 10.18 K/uL (4.8-10.8)
[2021-11-24] MEDS: HEPARIN SOD 5,000 UNIT/0.5 ML VIAL SQ SCH ×2 (10:00→20:11)
[2021-11-24 10:19] LABS: BUN Creatinine Ratio 6.7 (10-20); Calcium 8.4 mg/dl (8.5-10.1); Creatinine Clr Calc Pharmacy 27.2 ml/min; Est GFR (African American) 30.3 ml/min; Est GFR (Non-African American) 26.1 ml/min
--- NOTE | 2021-11-24 10:24 | Electrocardiogram Report ---
Test Reason : Blood Pressure : / mmHG Vent. Rate : 108 BPM Atrial Rate : 108 BPM P-R Int : 162 ms QRS Dur : 052 ms QT Int : 290 ms P-R-T Axes : 068 -05 053 degrees QTc Int : 388 ms Poor data quality, interpretation may be adversely affected Sinus tachycardia Poor R wave progression, consider anterior IA vs. lead placement vs. LVH Abnormal ECG When compared with ECG of 29-OCT-2021 13:48, No significant change Confirmed by Corey Contreras ([id number]) on 11/24/2021 10:23:59 AM Referred By: Lo Chand Confirmed By:Corey Contreras
--- NOTE | 2021-11-24 13:29 | Hospitalist Progress Note ---
Date of Service November 24, 2021 Assessment & Plan (1) Acute UTI: Plan: Patient on admission with left lower abdominal and flank pain CT abd/pelvis showed no significant change in urothelial thickening within both collecting systems and proximal ureters as well as bladder wall thickening with adjacent infiltration. Urine culture grew Klebsiella pneumonia that is pansensitive Initially was started on IV cefepime then transition to Rocephin. Will change abx from Rocephin to Cefepime Continue IV Fluconazole initiated yesterday Continue monitor closely History of recent left ureteral stent placement, left nephrolithiasis s/p day #1 cystoscopy with left ureteroscopy, laser lithotripsy, stone basket extraction, and left stent exchange by urology Urine culture grew Klebsiella Abx changed from Rocephin to Cefepime KUB showed no acute intra-abdominal abnormality. Left double-J ureteral stent, unchanged. continue Flomax and Pyridium as needed for pain History of chronic obstructive pulmonary disease and chronic respiratory failure : Current on oxygen 1 L with baseline 2L NC Continue her home inhalers. PERRI on chronic kidney disease stage III: Creatinine 1.9 on admission with creatinine at baseline, 1.4 Creatinine worsening to 1.9 today Continue gentle fluid hydration Continue monitor BMP Diabetes: Hemoglobin A1c 6.1 on 10/31 Glipizide on hold insulin sliding scale Continue monitor blood sugar History of colon cancer: Status post laparoscopic colectomy, total proctectomy and ileostomy, and ileoproctostomy in 2010. Morbid obesity: Counseling on weight loss Anemia: Hemoglobin 10.4 Continue monitor H&H Hyperlipidemia: Continue statin Hypertension: Continue metoprolol. Deep venous thrombosis prophylaxis:on Heparin Admission and Anticipated Discharge Date Admission Date: November 18, 2021 Subjective Pt seen and examined at bedside for follow up of left stent exchange. She is resting in bed complaint of severe abdominal pain and shaking Pt has been having nausea and she said that she vomited last night She has been febrile last night and today She has not been able to take any PO due to the nausea Denies any chest pain, palpitation, dizziness and SOB Review of Systems Review of Systems: All systems reviewed & are unremarkable except as noted in Subjective Physical Exam Physical Exam: General- No acute distress Head- atraumatic Eyes- PERRL, EOMI, ENT- oropharynx clear Neck- supple, no JVD Lungs-No wheezing, no rales Heart- regular rhythm; no murmur Abdomen- normal bowel sounds, soft, +tenderness with deep palpation Extremities- no calf tenderness Neuro- alert, oriented x 3; PERRL, EOMI; no facial palsy; no dysarthria Skin- warm & dry Results & Data Results & Data ([facility]) Vital Signs (Past 12 Hours) Vital Signs Temp Pulse Pulse Pulse Resp BP BP 11/24/21 11:21 37.6 C H 105 H 20 101/69 11/24/21 07:33 38.1 C H 127 H 20 119/81 11/24/21 07:29 102 H 11/24/21 06:08 37.5 C 105 H 18 122/74 11/24/21 06:00 11/24/21 04:32 37.6 C H 11/24/21 03:56 122 H 11/24/21 03:09 39.4 C H 135 H 18 103/66 11/24/21 01:32 37.3 C 132 H 18 139/84 Pulse Ox Pulse Ox 11/24/21 11:21 11/24/21 07:33 91 11/24/21 07:29 11/24/21 06:08 96 11/24/21 06:00 96 11/24/21 04:32 11/24/21 03:56 11/24/21 03:09 96 11/24/21 01:32 97
[2021-11-24] MEDS: CEFEPIME 1,000 MG in SYRINGE 0 ML IV SCH (14:12)
[2021-11-24] MEDS ORDERED: ACETAMINOPHEN 1000 MG/100 ML IV IV ONE (17:58)
[2021-11-24] MEDS: ACETAMINOPHEN 1000 MG/100 ML IV IV PRN (18:06)
[2021-11-24] MEDS: CLOPIDOGREL BISULFATE 75 MG TAB PO SCH (20:09)
[2021-11-24] MEDS: ATORVASTATIN 40 MG TAB PO SCH (20:09)
[2021-11-24] MEDS: METOPROLOL SUCC 25MG EXT REL TAB PO SCH (20:10)
[2021-11-24] MEDS: MAGNESIUM OXIDE 400 MG TAB PO SCH (20:10)
[2021-11-24] MEDS ORDERED: SODIUM CHLORIDE 0.9% 1000ML 1,000 ML IV SCH (23:45)
[2021-11-25] MEDS: INSULIN ASPART PER UNIT SC SCH ×5 (00:20→21:31)
[2021-11-25] MEDS: METOPROLOL TARTRATE 1 MG/ML VIAL IV SCH ×4 (00:24→18:33)
[2021-11-25] MEDS ORDERED: LACTATED RINGER'S 1,000 ML IV ONE ×2 (00:56→03:00)
[2021-11-25] MEDS: MoRPHine SULFATE 2 MG/ML CARP IV PRN ×6 (01:35→23:01)
[2021-11-25] MEDS: POTASSIUM CHLORIDE / WTR 10 MEQ/100 ML PLCT IV SCH ×2 (01:42→02:41)
[2021-11-25] MEDS: ACETAMINOPHEN 1000 MG/100 ML IV IV PRN ×2 (03:01→16:46)
[2021-11-25 07:31] LABS: Hematocrit (blood only) 30.4 % (37-47); Hemoglobin 9.3 g/dL (12.0-16.0); Mean Corpuscular Hemoglobin 29.6 pg (25-34); Mean Corpuscular Hgb Conc 30.6 g/dL (32-36); Mean Corpuscular Volume 96.8 fL (80-100); Mean Platelet Volume 10.9 fL (7.4-10.4); Platelet Count 152 K/uL (130-400); RDW Coefficient of Variation 14.7 % (11.5-14.5); RDW Standard Deviation 51.9 fL (36.4-46.3); Red Blood Count 3.14 M/uL (4.2-5.4)
[2021-11-25] MEDS ORDERED: Nursing to Pharmacy Communication SCH (07:45)
[2021-11-25 07:55] LABS: BUN Creatinine Ratio 10.5 (10-20); Calcium 8.2 mg/dl (8.5-10.1); Creatinine Clr Calc Pharmacy 22.8 ml/min; Est GFR (African American) 24.6 ml/min; Est GFR (Non-African American) 21.2 ml/min; Potassium 3.9 mmol/L (3.5-5.1)
[2021-11-25] MEDS: FLUCONAZOLE 100 MG/50 ML BAG IV SCH (08:38)
[2021-11-25] MEDS: TAMSULOSIN HCL 0.4 MG CAP PO SCH ×2 (08:39→10:11)
[2021-11-25] MEDS: OXcarbazepine 150 MG TABLET PO SCH ×3 (08:40→21:52)
[2021-11-25] MEDS: ACETAMINOPHEN 500 MG TAB PO SCH ×3 (08:40→21:51)
[2021-11-25] MEDS: METOPROLOL SUCC 50MG EXT REL TAB PO SCH ×2 (08:40→10:10)
[2021-11-25] MEDS: PANTOprazole 40 MG TAB PO SCH ×3 (08:40→21:52)
[2021-11-25] MEDS: CHOLECALCIFEROL 1,000 UNITS 25 MCG TAB PO SCH ×2 (08:40→10:10)
[2021-11-25] MEDS: LIDOCAINE 5% 1 PATCH TD SCH ×2 (08:41→10:12)
[2021-11-25] MEDS: PROMETHAZINE HCL 12.5 MG in SODIUM CHLORIDE 0.9% 50 ML IV PRN (09:55)
[2021-11-25] MEDS ORDERED: MICONAZOLE NITRATE POWDER 43 GM EXT PRN (10:07)
[2021-11-25] MEDS: HEPARIN SOD 5,000 UNIT/0.5 ML VIAL SQ SCH ×2 (10:11→21:56)
[2021-11-25] MEDS: NORMOSOL-R 1,000 ML IV SCH ×2 (10:21→17:13)
--- NOTE | 2021-11-25 10:40 | Hospitalist Progress Note ---
Date of Service November 25, 2021 Assessment & Plan (1) Acute UTI: Plan: Patient on admission with left lower abdominal and flank pain CT abd/pelvis showed left ureteral stent in place, left sided nephrolithiasis, no significant change in urothelial thickening within both collecting systems and proximal ureters as well as bladder wall thickening with adjacent infiltration. Patient has recent left ureteral staent placement and left nephrolithiasis S/p cystoscopy with left ureteroscopy, laser lithotripsy, stone basket extraction, and left stent exchange by urology POD #2 Urine culture grew Klebsiella which was pansensitive However, patient seem to have possible sepsis with fever, tachycardia post procedure Hence, antibiotics was changed from ceftriaxone to cefepime Urology also started iv fluconazole as patient had a recent Urine culture on 10/18/21 that grew ruben Patient appear to still have significant symptoms Will continue antibiotics, repeat cultures Get CT abd/Pelvis. This will be done without contrast due to worsening renal function continue Flomax and Pyridium as needed for pain PERRI on chronic kidney disease stage III: Creatinine 1.9 on admission with creatinine at baseline, 1.4 Creatinine worsening to 2.29 today Start normosol IVF Consult nephrology Patient declined hernandez. RN to monitor bladder scan and urine output Avoid nephrotoxins Encourage po History of chronic obstructive pulmonary disease and chronic respiratory failure : On 2L NC Continue her home inhalers. Diabetes: Hemoglobin A1c 6.1 on 10/31 Glipizide on hold insulin sliding scale per protocol Continue monitor blood sugar Currently on liquid diet. Will advance as tolerated History of colon cancer: Status post laparoscopic colectomy, total proctectomy and ileostomy, and ileoproctostomy in 2010. Morbid obesity: Will need more education on weight loss Anemia: Hemoglobin 9.3 Continue monitor H&H Hyperlipidemia: Continue statin Hypertension: Continue metoprolol. Deep venous thrombosis prophylaxis:on Heparin PT/OT eval Admission and Anticipated Discharge Date Admission Date: November 18, 2021 Subjective Patient seen and examined. Patient reports left-sided abdominal flank pain, associated with suprapubic pain, severe Associated with nausea, anorexia. Denies any vomiting, fevers. Reported some chills overnight. Reported some loose stool but no hematochezia. Reports chronic cough unchanged Denies any chest pain, palpitations, dizziness Denies dysuria, frequency, hematuria Physical Exam Constitutional: + well hydrated and + obese; no acute distress Eyes: PERRL, conjunctivae normal, anicteric sclerae ENMT: external ear and nose normal, oropharynx normal Respiratory: normal respiratory effort, lungs clear to auscultation Cardiovascular: Rate/Rhythm: regular rate and regular rhythm S1-S2 Gastrointestinal (Abdomen): Left-sided abdominal and flank tenderness, left lower abdominal tenderness Bowel sounds is normoactive Musculoskeletal: No pedal edema Neurologic: PERRL, EOMI, accommodation nl, no face palsy, no dysarthria Psychiatric: A+Ox3, euthymic affect Genitourinary: Left CVA tenderness Results & Data Results & Data ([facility]) Vital Signs (Past 12 Hours) Vital Signs Temp Pulse Pulse Resp BP BP BP 11/25/21 07:13 37.0 C 96 H 20 91/61 L 11/25/21 06:22 84 103/68 11/25/21 06:14 103/68 11/25/21 04:57 37.2 C 11/25/21 03:00 37.9 C H 120 H 20 92/60 L 11/25/21 02:47 108 H 11/25/21 00:24 111 H 86/57 L 11/24/21 23:00 36.8 C 111 H 20 86/57 L Pulse Ox 11/25/21 07:13 97 11/25/21 06:22 11/25/21 06:14 11/25/21 04:57 11/25/21 03:00 95 11/25/21 02:47 11/25/21 00:24 11/24/21 23:00 98 Laboratory Results Abnormal lab results 11/24/21 11/25/21 11/25/21 Range/Units 18:53 00:10 06:11 RBC (4.2-5.4) M/uL Hgb (12.0-16.0) g/dL Hct (37-47) % MCHC (32-36) g/dL RDW Std Deviation (36.4-46.3) fL RDW Coeff of Teresa (11.5-14.5) % MPV (7.4-10.4) fL Chloride (98-107) mmol/L Carbon Dioxide (21-32) mmol/L BUN (6-23) mg/dl Creatinine (0.6-1.2) mg/dl Glucose (70-99(Fasting)) mg/dl POC Glucose 162 H 100 H 118 H (70-99) mg/dl Calcium (8.5-10.1) mg/dl 11/25/21 11/25/21 11/25/21 Range/Units 07:04 07:04 07:56 RBC 3.14 L (4.2-5.4) M/uL Hgb 9.3 L (12.0-16.0) g/dL Hct 30.4 L (37-47) % MCHC 30.6 L (32-36) g/dL RDW Std Deviation 51.9 H (36.4-46.3) fL RDW Coeff of Teresa 14.7 H (11.5-14.5) % MPV 10.9 H (7.4-10.4) fL Chloride 109 H (98-107) mmol/L Carbon Dioxide 20 L (21-32) mmol/L BUN 24 H (6-23) mg/dl Creatinine 2.29 H D (0.6-1.2) mg/dl Glucose 117 H (70-99(Fasting)) mg/dl POC Glucose 115 H (70-99) mg/dl Calcium 8.2 L (8.5-10.1) mg/dl 11/25/21 Range/Units 11:37 RBC (4.2-5.4) M/uL Hgb (12.0-16.0) g/dL Hct (37-47) % MCHC (32-36) g/dL RDW Std Deviation (36.4-46.3) fL RDW Coeff of Teresa (11.5-14.5) % MPV (7.4-10.4) fL Chloride (98-107) mmol/L Carbon Dioxide (21-32) mmol/L BUN (6-23) mg/dl Creatinine (0.6-1.2) mg/dl Glucose (70-99(Fasting)) mg/dl POC Glucose 141 H (70-99) mg/dl Calcium (8.5-10.1) mg/dl
--- NOTE | 2021-11-25 11:25 | Urology Progress Note ---
Date of Service November 25, 2021 Assessment & Plan (1) Complicated UTI (urinary tract infection): (2) Left ureteral stone: Plan: - Pt POD #2 s/p cystoscopy with left ureteroscopy, laser lithotripsy, stone basket extraction, and left stent exchange. - Still with significant left abdominal flank and suprapubic pain. - Tmax overnight -37.9C, tachycardic and hypotensive overnight. - Afebrile at present, lab work reviewed - creatinine up to 2.29 today (previously 1.93), WBC 6.90, Hgb 9.3 - Continue to trend. - Urine culture 11/17 on admission grew out Klebsiella; BCx 11/17 final no growth, repeat pending. - Antibiotics changed yesterday from Rocephin to Cefepime. Continues on IV Fluconazole. - Recommend Purvis catheter insertion for maximum bladder drainage. Monitor urine output. - Continue supportive care and acute management per hospital medicine. - Will continue to follow closely. - Pt refused Purvis catheter per nursing. - Discussed with patient recommendation for Purvis catheter insertion for maximum bladder decompression with the continued rise in creatinine level. - Pt adamantly refused catheter at this time. - Recommend continue to monitor urine output, bladder scan as needed. - Still with significant left sided abdominal flank and suprapubic pain. - CT abd pelvis wo con ordered per primary team. - Nephrology following. - Will continue to follow closely. Admission and Anticipated Discharge Date Admission Date: November 18, 2021 Supervising Physician Co-Signing Physician Notes I have discussed Ms. Nesbitt's case with NICHOL Rogers and agree with the above documentation. Purvis catheter would make sense from the perspective of maximal decompression of urinary tract and maximal source control. Since she is refusing, it would be reasonable to BladderScan to ensure she is not retaining. If her creatinine continues to increase tomorrow, would consider retroperitoneal ultrasound to assess for any unexpected hydronephrosis. Subjective Pt seen and examined at bedside this AM. She is resting in bed, appears uncomfortable, mild shaking. RN at bedside with warm blankets. Subjectively feeling poorly. She reports left flank and abdominal pain. Reports chills and nausea at present. Receiving parental electrolytes as she has been unable to take any PO due to nausea. Per chart review, febrile overnight - Tmax 37.9 on 11/25 at 0300; tachycardic, hypotensive Voiding spontaneously. Has external catheter in place. Urine appears amadou colored. Some dysuria and pain with voiding. Denies CP/SOB. Review of Systems Constitutional: as per Subjective / HPI Gastrointestinal: as per Subjective / HPI Genitourinary: as per Subjective / HPI Physical Exam Constitutional: + ill appearing and + obese appears uncomfortable, mild shaking/chills, but no acute distress Respiratory: no respiratory distress and no labored breathing Cardiovascular: Extremities: no pedal edema Gastrointestinal (Abdomen): Inspection/Auscultation: abdomen normal to inspection; abdomen not distended Percussion/Palpation: + abdomen tender (mil d tenderness to palpation left abdomen) and abdomen soft Musculoskeletal: Head/Neck/Chest: normocephalic and head atraumatic Skin: No visible rashes to exposed skin areas Neurologic: awake Psychiatric: Orientation: alert and oriented x 3 Genitourinary: mild tenderness left flank Results & Data ([facility]) Vital Signs (Past 12 Hours) Vital Signs Temp Pulse Pulse Resp BP BP BP 11/25/21 11:05 36.9 C 100 H 18 99/68 L 11/25/21 07:13 37.0 C 96 H 20 91/61 L 11/25/21 06:22 84 103/68 11/25/21 06:14 103/68 11/25/21 04:57 37.2 C 11/25/21 03:00 37.9 C H 120 H 20 92/60 L 11/25/21 02:47 108 H 11/25/21 00:24 111 H 86/57 L Pulse Ox 11/25/21 11:05 100 11/25/21 07:13 97 11/25/21 06:22 11/25/21 06:14 11/25/21 04:57 11/25/21 03:00 95 11/25/21 02:47 11/25/21 00:24 PG Care Time/CCT Total # of Minutes Spent Total Time Spent with Patient: Total time spent is greater than 50% in coordination of care (as documented) at patient's floor/unit and/or counseling patient: Coding Level of Care Code 12935 Subseq Hosp Care Lvl 2 Diagnoses Complicated UTI (urinary tract infection) N39.0 Left ureteral stone N20.1
--- NOTE | 2021-11-25 13:05 | Nephrology Consultation ---
Date of Consultation November 25, 2021 Assessment & Plan (1) Acute on chronic renal failure: baseline creatinine 1.7-2 most recently, or early CKD4. was at/ near baseline this admission until today when her creat bumped to 2.3. she has had fever and is hardly taking po > suspect prerenal -continue normosol at 125ml/hr -daily bmp -repeat UACM ordered -agree w/ plan to repeat abd imaging if abd pain persists -pyridium can cause PERRI and would avoid in this CKD patient - she had one dose o nly this admission on on 11/21 (2) Recurrent UTI: low threshold for ID c/s if not already done -cont cefepime, f/u repeat cultures (3) Left ureteral stone: -Needs to push IV/PO fluids w/ goal 2L UOP daily minimum -cont urology f/u (4) Complicated UTI (urinary tract infection): as above History of Present Illness Reason for Consultation: PERRI on CKD Requesting Physician: Dr Moore Attending Physician: Anahi Moore MD History of Present Illness 66 y/o F whom I'm asked to see for PERRI on CKD was admitted 11/18 for L sided abdominal pain, PERRI and recurrent UTI and on 11/23 underwent lithotripsy basket retrieval and L ureteral stent exchange. PMH includes DM2, COPD, chronic kidney disease stage III, hypertension, bipolar disorder, chronic respiratory failure on 2L home oxygen, history of laparoscopic colectomy total with proctectomy and ileostomy and ileoproctostomy in 2010 for colon cancer. She was admitted here in early october w/ obstructive pyelonephritis, status post cystoscopy and left ureter stent; c/b acidosis and VDRF.. Her creatinine peaked at 3.3 that admission,, improved to 1.7. She was discharged home then readmitted on 10/30/2021 with COVID pneumonia s/p 10-day course of Decadron; also treated again for UTI with 5 days of cefepime and transitioned to cefdinir; she had C diff- negative diarrhea and hematochezia. GI was consulted and felt no EGD or colonoscopy indicated at that point. She came back to ER 11/18 w/ recurrent L sided abdominal and flank pain and still not eating, drinking, or ambulating much, not ambulating much. On 11/23 she underwent laser llithotripsy and L ureteral stent exchange. creat was 1.9 on presentation, went as low as 1.6 then back up to 1.9 and further increased to 2.3 today. she was febrile to 39.4 yesterday afternoon Her baseline creatinine is hard to pinpoint with such frequent PERRI but lately would put it approximatley 1.7-2. she is currently on fluconazole, cefepime, and normosol at 125 ml/hr. urology recommended hernandez catheter but pt refusing tells me she feels a bit better; but remains npo and w/ no appetite w/ + n/v and L sided abd pain radiating front to back around her flank; no edema; breathing at baseline. no dysuria Allergies Allergy/AdvReac Type Severity Reaction Status Date / Time fentanyl Allergy Severe itching/felt Verified 11/17/21 20:25 like throat closing salicylates Allergy Severe SHORTNESS Verified 11/17/21 20:25 OF BREATH Iodinated Contrast Media Allergy Intermediate EYES Verified 11/17/21 20:25 SWELLING/Hives amoxicillin [From Augmentin] Allergy Mild Rash Verified 11/17/21 20:25 aspirin Allergy Mild FACIAL Verified 11/17/21 20:25 SWELLING clavulanic acid Allergy Mild Rash Verified 11/17/21 20:25 [From Augmentin] hydromorphone Allergy Mild RASH/ITCHIN Verified 11/17/21 20:25 G meperidine AdvReac Intermediate ITCH Verified 11/17/21 20:25 morphine AdvReac Intermediate ITCH Verified 11/17/21 20:25 tramadol AdvReac Mild itch Verified 11/17/21 20:25 Home Medications Medication Instructions Recorded Confirmed Type atorvastatin 40 mg tablet (Lipitor) 40 mg PO QPM 07/12/18 11/17/21 History clopidogrel 75 mg tablet (Plavix) 75 mg PO QPM 07/12/18 11/17/21 History pantoprazole 40 mg tablet,delayed 40 mg PO BID 07/12/18 11/17/21 History release (Protonix) riboflavin (vitamin B2) 400 mg 400 mg PO QPM 07/12/18 11/17/21 History tablet cholecalciferol (vitamin D3) 50 2,000 unit PO QAM 05/16/19 11/17/21 History mcg (2,000 unit) capsule (Vitamin D3) albuterol sulfate 90 mcg/actuation 2 puff INHALATION Q4H PRN 07/21/19 11/17/21 History aerosol inhaler magnesium oxide 400 mg PO HS 10/05/19 11/17/21 History fluticasone fur. 100 mcg-umeclid 1 inh INHALATION DAILY PRN 12/11/20 11/17/21 History 62.5 mcg-vilant 25 mcg inhalat.powder (Trelegy Ellipta) metoprolol succinate 25 mg 25 mg PO PM tab 12/11/20 11/17/21 History tablet,extended release 24 hr metoprolol succinate 50 mg 50 mg PO QAM 12/11/20 11/17/21 History tablet,extended release 24 hr glipizide 2.5 mg tablet, extended 2.5 mg PO PM 04/29/21 11/17/21 History release 24 hr (Glucotrol XL) ondansetron 4 mg disintegrating 4 mg PO Q8H PRN #10 tab 06/02/21 11/17/21 Rx tablet acetaminophen 500 mg tablet 1,000 mg PO AMHS 10/11/21 11/17/21 History (Tylenol Extra Strength) oxcarbazepine 300 mg tablet 300 mg PO BID 10/11/21 11/17/21 History loperamide 2 mg capsule 2 mg PO TID PRN #30 cap 11/09/21 11/17/21 Rx phenazopyridine 100 mg tablet 100 mg PO TID PRN #30 tab 11/09/21 11/17/21 Rx (Pyridium) tamsulosin 0.4 mg capsule 0.4 mg PO QAM 30 Days #30 cap 11/09/21 11/17/21 Rx Patient History Medical History Acute UTI (urinary tract infection) has presently per pt Anxiety Asthma well controlled per pt, rare inh use CHF (congestive heart failure) follows with Dr. Singh Chronic back pain Chronic headaches Chronic renal insufficiency stage 3, following with [facility] nephrology ([place]) Chronic respiratory failure with hypoxia Was on home oxygen in the past but no longer using at this time CKD (chronic kidney disease) COPD (chronic obstructive pulmonary disease) Deep vein thrombosis LLE - COULD NOT RECALL DATE - REPORTS SHE WAS TREATED AT [facility] W/ BLOOD THINNERS Depression Diabetes mellitus, type 2 GERD (gastroesophageal reflux disease) History of colon cancer 2012 S/P BOWEL RESECTION. History of COVID-27 Sep 2020 HTN (hypertension) Hyperlipidemia Mood disorder Morbid obesity with BMI of 40.0-44.9, adult Myocardial Infarction 06/2016--> [facility] -- CARDIAC CATH --> normal coronary anatomy without coronary obstruction but Plavix started per [facility] discharge summary On anticoagulant therapy plavix daily CALI (obstructive sleep apnea) Poor historian Seizure Pt states "i think i had them a long time ago". no other information. No hx of seizures noted in records Sinus tachycardia Follows with cardio Surgical History H/O hand surgery RIGHT History of appendectomy History of bilateral cataract extraction History of blepharoplasty History of cardiac cath 03/2018 - [place] - DENIES STENTS/ANGIOPLASTY - [facility] - FOLLOWS W/ DR. SINGH History of closure of ileostomy History of colectomy due to colon cancer History of colonoscopy History of cystoscopy History of esophageal dilatation History of esophagogastroduodenoscopy (EGD) History of hysterectomy History of kidney surgery at age 9 yrs "something was wrong and had to fix it" History of lithotripsy History of tooth extraction History of total abdominal hysterectomy and bilateral salpingo-oophorectomy Hx of cholecystectomy Family History Other Breast cancer Social History Smoking Status: Never smoker Second Hand Exposure: No; Hx Alcohol Use: No Hx Substance Use: No Preferred Language: Tajik Communication Ability: Effective [place]et Flunky Required: No Beliefs That Will Affect Care: None marital status: Current Living Situation: Spouse Current Living Situation Comment: [facility] Feels Safe at Home: Yes Assistive Devices: Oxygen - Continuous Review of Systems Review of Systems: All systems reviewed & are unremarkable except as noted in HPI & below Physical Exam Constitutional: well developed, well nourished, + obese, + frail appearing and cooperative; no acute distress Eyes: EOM intact bilaterally ENMT: Ears: no external ear abnormality Nose: no external nose abnormality Mouth: + dry oral mucous membranes Neck: no nuchal rigidity Respiratory: normal respiratory effort Auscultation: + diminished lung sounds Cardiovascular: Rate/Rhythm: regular rate and regular rhythm Extremities: no edema Gastrointestinal (Abdomen): Inspection/Auscultation: normal bowel sounds Percussion/Palpation: + abdomen tender (L sided w/o rebound or guarding) and abdomen soft; no fluid wave Musculoskeletal: Extremities: strength 5/5 throughout Skin: no rashes, warm and dry Neurologic: gomez, fluent speech, + tremor Genitourinary: purewick hernandez in place Results & Data ([facility]) Vital Signs (Past 12 Hours) Vital Signs Temp Pulse Pulse Resp BP BP BP 11/25/21 12:54 85 100/68 11/25/21 11:05 36.9 C 100 H 18 99/68 L 11/25/21 08:00 95 H 11/25/21 07:13 37.0 C 96 H 20 91/61 L 11/25/21 06:22 84 103/68 11/25/21 06:14 103/68 11/25/21 04:57 37.2 C 11/25/21 03:00 37.9 C H 120 H 20 92/60 L 11/25/21 02:47 108 H Pulse Ox 11/25/21 12:54 11/25/21 11:05 100 11/25/21 08:00 11/25/21 07:13 97 11/25/21 06:22 11/25/21 06:14 11/25/21 04:57 11/25/21 03:00 95 11/25/21 02:47 Laboratory Results 11/25/21 07:04 11/25/21 07:[address] abd/pelvis non con 11/17 FINDINGS: Several nodules within the lower lungs are unchanged from earlier exams. These are benign given stability. A moderate sized hiatal hernia is present. No pneumatosis, free air or portal venous gas is present. Left ureteral stent is appropriately positioned. Mild dilatation of the left renal pelvis is similar to CT of October 18, 2021. Bilateral urothelial thickening is again note d. This is similar to prior exam. Marked left renal atrophy is noted. No calculi within lower pole the left kidney measure up to 8 mm. These are similar to prior exam. There are no ureteral calculi. A 4 mm calcification within the right kidney is noted. Broad wall thickening with adjacent infiltration is unchanged. A cyst within the upper pole the left kidney is noted. Evaluation of the remainder of the abdomen and pelvis is suboptimal on this unenhanced exam. The liver, spleen, adrenal glands and pancreas are unremarkable. There is no evidence for a bowel obstruction. Sigmoid resection is noted. There is no lymphadenopathy. No acute fracture or suspicious lesion is identified within the visualized skeletal structures. IMPRESSION: 1. Left ureteral stent in place. No change in mild dilatation of the left renal pelvis since CT of November 07, 2021. Left-sided nephrolithiasis. No ureteral c alculi. 2. No significant change in urothelial thickening within both collecting systems and proximal ureters as well as bladder wall thickening with adjacent infiltration. Findings could be correlated with urinalysis. 3. Marked left renal atrophy. 4. No bowel obstruction.
[2021-11-25] MEDS: CEFEPIME 1,000 MG in SYRINGE 0 ML IV SCH (14:11)
--- NOTE | 2021-11-25 16:54 | CT Scan Report ---
CT abdomen wo con CLINICAL HISTORY: Reassess. Complicated UTI. R/o abscess/collection TECHNIQUE: Helical axial images of the abdomen and pelvis were obtained. Automated dose lowering tech niques and/or adjustment according to patient size were utilized for this exam. This exam was perfor med without intravenous contrast. COMPARISON: Comparison is made to CT abdomen pelvis 11/17/2021 FINDINGS: Lower chest: Atelectasis is seen bilaterally. There is a 6 mm pulmonary nodule in the right lung bas e. Liver: Unremarkable. No focal lesions are seen. Gallbladder and biliary tree: Patient is status post cholecystectomy. No intra- or extrahepatic bilia ry ductal dilation. Pancreas: Fatty replacement of the pancreas is seen. Spleen: Unremarkable. Adrenals: Unremarkable. Kidneys and ureters: There is a 70 x 42 mm cystic lesion in the left renal hilum, compatible with yair al cyst. Bilateral perinephric stranding is seen. Partially visualized cysts are noted. There is a le ft nephroureteral stent. Bowel: A hiatal hernia is seen. Lymph nodes Retroperitoneal: Unremarkable. Mesenteric: Unremarkable. Peritoneum: Normal. Vessels: Unremarkable. Abdominal wall: A small midline hernia is seen containing only fat. Bones: Unremarkable. IMPRESSION: No evidence of drainable abscess. Left ureteral stent is in place. No definite evidence of hydronephr osis. Bilateral renal cysts are seen. Perinephric stranding, new from prior exam, may represent infec tious/inflammatory appearance. ACT 112: Negative or not required by law. Electronically signed by: Yuan Jorge M.D. 11/25/2021 4:52 PM
[2021-11-25] MEDS: MAGNESIUM OXIDE 400 MG TAB PO SCH (21:54)
[2021-11-25] MEDS: ATORVASTATIN 40 MG TAB PO SCH (21:55)
[2021-11-25] MEDS: CLOPIDOGREL BISULFATE 75 MG TAB PO SCH (21:55)
[2021-11-25] MEDS: METOPROLOL SUCC 25MG EXT REL TAB PO SCH (21:59)
[2021-11-26] MEDS: NORMOSOL-R 1,000 ML IV SCH ×3 (00:25→17:33)
[2021-11-26] MEDS: METOPROLOL TARTRATE 1 MG/ML VIAL IV SCH ×4 (00:27→17:28)
[2021-11-26] MEDS: MoRPHine SULFATE 2 MG/ML CARP IV PRN ×4 (03:34→17:29)
--- NOTE | 2021-11-26 07:58 | Nephrology Progress Note ---
Date of Service November 26, 2021 Assessment & Plan (1) Acute on chronic renal failure: Plan: baseline creatinine 1.7-2 most recently, or early CKD4. was at/ near baseline this admission until 11/25 when her creat bumped to 2.3. Last fever November 24 and is still hardly taking po > suspect prerenal. CT scan and repeat UA at least not concerning/ as expected after recent procedure -continue normosol at 125ml/hr -daily bmp -repeat UACM ordered November 25 as above -pyridium can cause PERRI and would avoid in this CKD patient - she had one dose only this admission on on 11/21 Care cortiki w/ Dr Moore (2) Recurrent UTI: Plan: low threshold for ID c/s if not already done -cont cefepime, f/u repeat cultures; UACM reassuring in that no bacteria > f/u cxs re yeast -Remains on empiric fluconazole pending culture results as well (3) Left ureteral stone: Plan: -Needs to push IV/PO fluids w/ goal 2L UOP daily minimum -cont urology f/u (4) Complicated UTI (urinary tract infection): Plan: as above Admission and Anticipated Discharge Date Admission Date: November 18, 2021 Subjective taking pills and minimal but some po, still mostly liquids. marked ongoing abd pain but no F; EWING w/ photophobia this am. no sob Review of Systems Review of Systems: All systems reviewed & are unremarkable except as noted in Subjective Physical Exam Constitutional: well developed, well nourished, + obese, + frail appearing and cooperative; no acute distress Eyes: EOM intact bilaterally ENMT: Ears: no external ear abnormality Nose: no external nose abnormality Mouth: + dry oral mucous membranes Neck: no nuchal rigidity Respiratory: normal respiratory effort Auscultation: + diminished lung sounds (on anterior exam) Cardiovascular: Rate/Rhythm: regular rate and regular rhythm Extremities: no edema Gastrointestinal (Abdomen): Inspection/Auscultation: normal bowel sounds Percussion/Palpation: + abdomen tender (L sided upper/lower quadrants and suprapubic w/o rebound or guarding) and abdomen soft; no fluid wave Musculoskeletal: Extremities: strength 5/5 throughout Skin: no rashes, warm and dry Genitourinary: has purewick Results & Data ([facility]) Vital Signs (Past 12 Hours) Vital Signs Temp Pulse Pulse Resp BP BP BP 11/26/21 07:37 36.9 C 86 16 99/69 L 11/26/21 07:09 36.9 C 84 18 116/71 11/26/21 06:14 84 116/71 11/26/21 06:13 84 116/71 11/26/21 03:30 36.8 C 77 18 97/63 L 11/26/21 00:27 82 83/53 L 11/26/21 00:26 82 83/53 L 11/25/21 23:52 81 11/25/21 21:58 36.9 C 80 20 103/70 Pulse Ox 11/26/21 07:37 100 11/26/21 07:09 96 11/26/21 06:14 11/26/21 06:13 11/26/21 03:30 98 11/26/21 00:27 11/26/21 00:26 11/25/21 23:52 11/25/21 21:58 97 Laboratory Results 11/25/21 07:04 11/26/21 07:36 11/25/21 07:04 11/25/21 07:04 November 26 urinalysis: [place] urine specific gravity 1014 2+ protein 3+ blood 2+ leukocyte Estrace greater than 30 white cells 5-10 red cells 20-30 epithelial cells no bacteria positive yeast Diagnostic Findings CT abd pelvis no con yesterday Adrenals: Unremarkable. Kidneys and ureters: There is a 70 x 42 mm cystic lesion in the left renal hilum, compatible with renal cyst. Bilateral perinephric stranding is seen. Partially visualized cysts are noted. There is a left nephroureteral stent. Bowel: A hiatal hernia is seen. Lymph nodes Retroperitoneal: Unremarkable. Mesenteric: Unremarkable. Peritoneum: Normal. Vessels: Unremarkable. Abdominal wall: A small midline hernia is seen containing only fat. Bones: Unremarkable. IMPRESSION: No evidence of drainable abscess. Left ureteral stent is in place. No definite evidence of hydronephrosis. Bilateral renal cysts are seen. Perinephric stranding, new from prior exam, may represent infectious/inflammatory appearance .
[2021-11-26] MEDS: LIDOCAINE 5% 1 PATCH TD SCH (08:19)
[2021-11-26] MEDS: PANTOprazole 40 MG TAB PO SCH ×2 (08:20→21:28)
[2021-11-26 08:21] LABS: Appearance Urine Cloudy (Clear); Bacteria Urine Automated Negative (Negative); Bilirubin Urine Negative (Negative); Blood Urine 3+ (Negative); Color Urine Yellow; Epithelial Cell Urine Auto 20-30 /lpf (0-5); Glucose Urine UA Negative (Negative); Ketones Urine Negative (Negative); Leukocyte Esterase Urine 2+ (Negative); Nitrite Urine Negative (Negative); Protein Urine 2+ (Negative); Specific Gravity Urine 1.014 (1.000-1.030); Urobilinogen Urine Negative (Negative); WBC Urine Automated >30 /hpf (0-5)
[2021-11-26] MEDS: FLUCONAZOLE 100 MG/50 ML BAG IV SCH (08:25)
[2021-11-26] MEDS: TAMSULOSIN HCL 0.4 MG CAP PO SCH (08:25)
[2021-11-26 08:26] LABS: Albumin Level 2.5 gm/dl (3.4-5.0); BUN Creatinine Ratio 13.5 (10-20); Bilirubin,Total 0.3 mg/dl (0.2-1.0); Calcium 7.9 mg/dl (8.5-10.1); Creatinine Clr Calc Pharmacy 24.3 ml/min; Est GFR (African American) 27.8 ml/min; Globulin 2.5 gm/dl (2.5-4.0); Magnesium 1.9 mg/dl (1.7-2.4); Phosphorus 3.1 mg/dl (2.5-4.9); Potassium 3.9 mmol/L (3.5-5.1)
[2021-11-26] MEDS: INSULIN ASPART PER UNIT SC SCH ×4 (08:34→21:29)
[2021-11-26] MEDS: ACETAMINOPHEN 500 MG TAB PO SCH ×2 (08:36→21:31)
[2021-11-26] MEDS: CHOLECALCIFEROL 1,000 UNITS 25 MCG TAB PO SCH (08:38)
[2021-11-26] MEDS: HEPARIN SOD 5,000 UNIT/0.5 ML VIAL SQ SCH ×2 (08:40→21:30)
[2021-11-26] MEDS: METOPROLOL SUCC 50MG EXT REL TAB PO SCH (08:41)
[2021-11-26] MEDS: PROMETHAZINE HCL 12.5 MG in SODIUM CHLORIDE 0.9% 50 ML IV PRN ×2 (08:44→20:17)
--- NOTE | 2021-11-26 10:42 | Hospitalist Progress Note ---
Date of Service November 26, 2021 Assessment & Plan (1) Acute UTI: Plan: Patient on admission with left lower abdominal and flank pain CT abd/pelvis showed left ureteral stent in place, left sided nephrolithiasis, no significant change in urothelial thickening within both collecting systems and proximal ureters as well as bladder wall thickening with adjacent infiltration. Patient has recent left ureteral staent placement and left nephrolithiasis S/p cystoscopy with left ureteroscopy, laser lithotripsy, stone basket extraction, and left stent exchange by urology POD #3 Urine culture grew Klebsiella which was pansensitive However, patient seem to have possible sepsis with fever, tachycardia post procedure Hence, antibiotics was changed from ceftriaxone to cefepime Urology also started iv fluconazole as patient had a recent Urine culture on 10/18/21 that grew ruben Repeat CT abd yesterday did not show sign of abscess, left ureteral stent in place. Perinephric stranding No fever in the past 24h Blood cultures negative so far. Continue current anti-infective meds Ccontinue Flomax and Pyridium as needed for pain PERRI on chronic kidney disease stage III: Creatinine 1.9 on admission with creatinine at baseline, 1.4 Creatinine worsening to 2.29 yesterday, currently 2.07 Continue normosol IVF Nephrology recs appreciated Avoid nephrotoxins Encourage po History of chronic obstructive pulmonary disease and chronic respiratory failure : On 2L NC Continue her home inhalers. Diabetes: Hemoglobin A1c 6.1 on 10/31 Glipizide on hold insulin sliding scale per protocol Continue monitor blood sugar Currently on liquid diet. Will advance as tolerated History of colon cancer: Status post laparoscopic colectomy, total proctectomy and ileostomy, and ileoproctostomy in 2010. Morbid obesity: Will need more education on weight loss Anemia: Hemoglobin 9.3 Continue monitor H&H Hyperlipidemia: Continue statin Hypertension: Continue metoprolol. Deep venous thrombosis prophylaxis:on Heparin PT/OT eval Admission and Anticipated Discharge Date Admission Date: November 18, 2021 Subjective Patient seen and examined. Reports nausea is improved Still has left sided abdominal pain No fevers, chills, vomiting Reported some headache, chronic Reported some loose stool but no hematochezia. Reports chronic cough unchanged Denies any chest pain, palpitations, dizziness Denies dysuria, frequency, hematuria Physical Exam Constitutional: + well hydrated and + obese; no acute distress Eyes: PERRL, conjunctivae normal, anicteric sclerae ENMT: external ear and nose normal, oropharynx normal Respiratory: normal respiratory effort, lungs clear to auscultation Cardiovascular: Rate/Rhythm: regular rate and regular rhythm S1 S2 Gastrointestinal (Abdomen): Soft, nondistended, left abd tenderness, no rebound +BS Musculoskeletal: No pedal edema Neurologic: PERRL, EOMI, accommodation nl, no face palsy, no dysarthria Psychiatric: A+Ox3, euthymic affect Genitourinary: Left CVA tenderness Results & Data Results & Data ([facility]) Vital Signs (Past 12 Hours) Vital Signs Temp Pulse Pulse Resp BP BP BP 11/26/21 07:37 36.9 C 86 16 99/69 L 11/26/21 07:09 36.9 C 84 18 116/71 11/26/21 06:14 84 116/71 11/26/21 06:13 84 116/71 11/26/21 03:30 36.8 C 77 18 97/63 L 11/26/21 00:27 82 83/53 L 11/26/21 00:26 82 83/53 L 11/25/21 23:52 81 Pulse Ox 11/26/21 07:37 100 11/26/21 07:09 96 11/26/21 06:14 11/26/21 06:13 11/26/21 03:30 98 11/26/21 00:27 11/26/21 00:26 11/25/21 23:52 Laboratory Results Abnormal lab results 11/26/21 11/26/21 11/26/21 Range/Units 07:36 08:00 08:30 Chloride 109 H (98-107) mmol/L BUN 28 H (6-23) mg/dl Creatinine 2.07 H (0.6-1.2) mg/dl Glucose 108 H (70-99(Fasting)) mg/dl POC Glucose 110 H (70-99) mg/dl Calcium 7.9 L (8.5-10.1) mg/dl Total Protein 5.0 L (6.0-8.3) gm/dl Albumin 2.5 L (3.4-5.0) gm/dl Urine Appearance Cloudy A (Clear) Urine Protein 2+ H (Negative) Urine Blood 3+ H (Negative) Ur Leukocyte Esterase 2+ H (Negative) Urine WBC (Auto) >30 H (0-5) /hpf Urine RBC (Auto) 5-10 H (0-4) /hpf U Epithel Cells (Auto) 20-30 H (0-5) /lpf Urine Yeast Budding A (None Prsent) 11/26/21 Range/Units 11:36 Chloride (98-107) mmol/L BUN (6-23) mg/dl Creatinine (0.6-1.2) mg/dl Glucose (70-99(Fasting)) mg/dl POC Glucose 133 H (70-99) mg/dl Calcium (8.5-10.1) mg/dl Total Protein (6.0-8.3) gm/dl Albumin (3.4-5.0) gm/dl Urine Appearance (Clear) Urine Protein (Negative) Urine Blood (Negative) Ur Leukocyte Esterase (Negative) Urine WBC (Auto) (0-5) /hpf Urine RBC (Auto) (0-4) /hpf U Epithel Cells (Auto) (0-5) /lpf Urine Yeast (None Prsent)
[2021-11-26] MEDS: OXcarbazepine 150 MG TABLET PO SCH ×2 (11:20→21:27)
--- NOTE | 2021-11-26 12:20 | Urology Progress Note ---
Date of Service November 26, 2021 Assessment & Plan (1) Complicated UTI (urinary tract infection): (2) Left ureteral stone: (3) Acute on chronic renal failure: Plan: 66yo F with a complex past medical historyadmitted with UTI and PERRI. - Pt POD #3 s/p cystoscopy with left ureteroscopy, laser lithotripsy, stone basket extraction, and left stent exchange. - Still with left abdominal flank and suprapubic pain. - CT abd -No evidence of abscess. Left stent in place. No evidence of hydronephrosis. Perinephric stranding, likely inflammatory/irritation post procedure. - Afebrile, lab work reviewed - creatinine 2.07 today, 2.29 previously - Continue to trend - Urine culture 11/17 on admission grew out Klebsiella, repeat UCx pending - BCx 11/17 final no growth, repeat preliminary no growth - Continues on IV Cefepime and Fluconazole. - Discussed with patient again today recommendation for Purvis catheter insertion for maximum decompression of urinary tract - She declined. - Recommend continue to monitor urine output, bladder scan as needed. - Continue supportive care and acute management per hospital medicine. - Will continue to follow. Admission and Anticipated Discharge Date Admission Date: November 18, 2021 Subjective Pt examined at bedside this AM. Awake, sitting in bedside chair on arrival. No acute distress. No fevers overnight. Denies chills/shakes. Still with left abdominal flank and suprapubic pain, but feels pain has improved slightly from yesterday. No nausea or vomiting this morning. Still with minimal PO intake. Voiding spontaneously. Denies hematuria/dysuria. Feels she is emptying her bladder without issue. Review of Systems Constitutional: as per Subjective / HPI Gastrointestinal: as per Subjective / HPI Genitourinary: as per Subjective / HPI Physical Exam Constitutional: + ill appearing and + obese; no acute distress Respiratory: no respiratory distress and no labored breathing Cardiovascular: Extremities: no calf tenderness Gastrointestinal (Abdomen): Inspection/Auscultation: abdomen normal to inspection; abdomen not distended Percussion/Palpation: + abdomen tender (Tenderness to palpation left abdomen) and abdomen soft Musculoskeletal: Head/Neck/Chest: normocephalic Skin: No visible rashes to exposed skin areas Neurologic: moves all extremities and awake Psychiatric: Orientation: alert and oriented x 3 Genitourinary: Tenderness to left flank with palpation Results & Data ([facility]) Vital Signs (Past 12 Hours) Vital Signs Temp Pulse Pulse Resp BP BP BP 11/26/21 11:33 37.1 C 85 16 100/69 11/26/21 07:37 36.9 C 86 16 99/69 L 11/26/21 07:09 36.9 C 84 18 116/71 11/26/21 06:14 84 116/71 11/26/21 06:13 84 116/71 11/26/21 03:30 36.8 C 77 18 97/63 L 11/26/21 00:27 82 83/53 L 11/26/21 00:26 82 83/53 L Pulse Ox 11/26/21 11:33 100 11/26/21 07:37 100 11/26/21 07:09 96 11/26/21 06:14 11/26/21 06:13 11/26/21 03:30 98 11/26/21 00:27 11/26/21 00:26 PG Care Time/CCT Total # of Minutes Spent Total Time Spent with Patient: Total time spent is greater than 50% in coordination of care (as documented) at patient's floor/unit and/or counseling patient: Coding Level of Care Code 81328 Subseq Hosp Care Lvl 2 Diagnoses Complicated UTI (urinary tract infection) N39.0 Left ureteral stone N20.1 Acute on chronic renal failure N17.9; N18.9
[2021-11-26] MEDS: CEFEPIME 1,000 MG in SYRINGE 0 ML IV SCH (13:29)
[2021-11-26] MEDS: CLOPIDOGREL BISULFATE 75 MG TAB PO SCH (21:26)
[2021-11-26] MEDS: METOPROLOL SUCC 25MG EXT REL TAB PO SCH (21:26)
[2021-11-26] MEDS: ATORVASTATIN 40 MG TAB PO SCH (21:27)
[2021-11-26] MEDS: MAGNESIUM OXIDE 400 MG TAB PO SCH (21:29)
[2021-11-27] MEDS: METOPROLOL TARTRATE 1 MG/ML VIAL IV SCH ×4 (00:11→18:10)
[2021-11-27 01:01] LABS: Component 2 DNR; Source L URETERAL STONE
[2021-11-27] MEDS: NORMOSOL-R 1,000 ML IV SCH ×3 (03:13→21:42)
[2021-11-27] MEDS: LIDOCAINE 5% 1 PATCH TD SCH (07:58)
[2021-11-27] MEDS: FLUCONAZOLE 100 MG/50 ML BAG IV SCH (08:02)
[2021-11-27] MEDS: TAMSULOSIN HCL 0.4 MG CAP PO SCH (08:06)
[2021-11-27] MEDS: CHOLECALCIFEROL 1,000 UNITS 25 MCG TAB PO SCH (08:06)
[2021-11-27] MEDS: OXcarbazepine 150 MG TABLET PO SCH ×2 (08:06→21:49)
[2021-11-27] MEDS: METOPROLOL SUCC 50MG EXT REL TAB PO SCH (08:06)
[2021-11-27] MEDS: PANTOprazole 40 MG TAB PO SCH ×2 (08:06→21:50)
[2021-11-27] MEDS: HEPARIN SOD 5,000 UNIT/0.5 ML VIAL SQ SCH ×2 (08:07→21:52)
[2021-11-27] MEDS: ACETAMINOPHEN 500 MG TAB PO SCH ×2 (08:07→21:46)
--- NOTE | 2021-11-27 08:23 | Urology Progress Note ---
Date of Service November 27, 2021 Assessment & Plan (1) Complicated UTI (urinary tract infection): (2) Left ureteral stone: (3) Acute on chronic renal failure: Plan: 66 yo F with a complex past medical historyadmitted with UTI and PERRI. - Pt POD #4 s/p cystoscopy with left ureteroscopy, laser lithotripsy, stone basket extraction, and left stent exchange. - Continues to have left abdominal, flank and suprapubic pain. - CT abd 11/25- No evidence of abscess. Left stent in place. No hydro. Perinephric stranding, likely inflammatory/irritation post-op. - Afebrile, lab work reviewed - creatinine improved to 1.67 today - Continue to trend. - Urine culture 11/17 grew out Klebsiella - Continues on IV Cefepime and Fluconazole. - Repeat UCx showing probable Enterococcus - follow culture and adjust antibiotics as indicated. - BCx 11/17 final no growth, repeat preliminary no growth x 24 hours. - Bladder scan 11/26 - 47 mL. - Recommend continue to monitor urine output, bladder scan as needed. - Continue supportive care and acute management per hospital medicine. - Recommend Tamsulosin, prn oxybutynin, and prn pain management for stent discomfort. - Will arrange outpatient follow-up with our service for stent removal and further management. Thank you for allowing us to participate in the acute care of Ms. Nesbitt. Please reconsult us with additional questions, concerns or changes in patient status. Admission and Anticipated Discharge Date Admission Date: November 18, 2021 Supervising Physician Co-Signing Physician Notes I have discussed Ms Nesbitt's case with NICHOL Wolfe and agree with the above documentation. She is feeling better and voiding well. Bladder scan shows that she is emptying most of the way. Creatinine is essentially at baseline. Would recommend Tylenol/ibuprofen, tamsulosin, Pyridium for stent discomfort. We will arrange outpatient stent removal and further management. Subjective Pt seen and examined at bedside this AM. Awake, alert and sitting up in bedside chair on arrival. No acute issues overnight. Subjectively feeling better today. No fevers/chills overnight. Reports left abdominal, flank/back and suprapubic discomfort, but feels pain has improved slightly from yesterday. No nausea or vomiting this morning. Low appetite. Voiding spontaneously. Denies hematuria/dysuria. Feels she is emptying her bladder without issue. Offers no additional complaints at present. Review of Systems Constitutional: as per Subjective / HPI Gastrointestinal: as per Subjective / HPI Genitourinary: as per Subjective / HPI Physical Exam Constitutional: well developed, well nourished and + obese; no acute distress and not ill appearing Respiratory: normal respiratory effort and able to speak in complete sentences; no respiratory distress and no labored breathing Cardiovascular: Extremities: no pedal edema Gastrointestinal (Abdomen): Inspection/Auscultation: abdomen normal to inspection; abdomen not distended Neurologic: moves all extremities and awake Psychiatric: Orientation: alert, oriented x 3 and cooperative Results & Data ([facility]) Vital Signs (Past 12 Hours) Vital Signs Temp Pulse Pulse Resp BP BP Pulse Ox 11/27/21 07:27 63 11/27/21 06:08 66 110/76 11/27/21 06:06 66 110/76 11/27/21 02:06 36.9 C 60 20 100/68 96 11/27/21 00:11 67 101/67 11/27/21 00:10 67 101/67 11/26/21 23:21 89 11/26/21 22:41 37.0 C 86 18 112/74 97 11/26/21 21:24 73 113/75 PG Care Time/CCT Total # of Minutes Spent Total Time Spent with Patient: Total time spent is greater than 50% in coordination of care (as documented) at patient's floor/unit and/or counseling patient: Coding Level of Care Code 71653 Subseq Hosp Care Lvl 2 Diagnoses Complicated UTI (urinary tract infection) N39.0 Left ureteral stone N20.1 Acute on chronic renal failure N17.9; N18.9
[2021-11-27 08:31] LABS: Hematocrit (blood only) 27.7 % (37-47); Hemoglobin 8.4 g/dL (12.0-16.0); Mean Corpuscular Hgb Conc 30.3 g/dL (32-36); Mean Corpuscular Volume 95.5 fL (80-100); Platelet Count 140 K/uL (130-400); RDW Coefficient of Variation 14.3 % (11.5-14.5); RDW Standard Deviation 50.4 fL (36.4-46.3)
[2021-11-27] MEDS: INSULIN ASPART PER UNIT SC SCH ×4 (08:31→21:38)
--- NOTE | 2021-11-27 08:46 | Nephrology Progress Note ---
Date of Service November 27, 2021 Assessment & Plan (1) Acute on chronic renal failure: Plan: prerenal PERRI on CKD 4, resolved as of today. baseline creatinine 1.7-2 most recently, or early CKD4. was at/ near baseline this admission until 11/25 when her creat bumped to 2.3. Last fever November 24 and is still hardly taking shayla. CT scan and repeat UA at least not concerning/ as expected after recent procedure -continue normosol at 125ml/hr -daily bmp -cont to avoid nephrotoxins -encourage po -pyridium can cause PERRI and would avoid in this CKD patient - she had one dose only this admission on on 11/21 will continue to follow but can offer preliminary d/c recs >>Needs hospital discharge appt with me 2-4 weeks after discharge gely bowden; keep neph PA appt in January; weekly bmp x 3 to be ordered by nephro nurse at d/c (2) Recurrent UTI: Plan: low threshold for ID c/s if not already done -cont cefepime, f/u repeat cultures >>>>UACM reassuring in that no bacteria > f/u cxs re yeast; treating empirically for enterococcus though note there were no bacteria on UA; concern cx reflects contaminant -Remains on empiric fluconazole pending culture results as well (3) Left ureteral stone: Plan: -Needs to push IV/PO fluids w/ goal 2L UOP daily minimum -cont urology f/u (4) Complicated UTI (urinary tract infection): Plan: as above Admission and Anticipated Discharge Date Admission Date: November 18, 2021 Subjective no interval events. EWING a bit better as is abd pain, though still soem L sided pain. Review of Systems Review of Systems: All systems reviewed & are unremarkable except as noted in Subjective Physical Exam Constitutional: well developed, well nourished, + obese, + frail appearing and cooperative; no acute distress Eyes: EOM intact bilaterally ENMT: Ears: no external ear abnormality Nose: no external nose abnormality Mouth: + dry oral mucous membranes Neck: no nuchal rigidity Respiratory: normal respiratory effort Auscultation: + diminished lung sounds (on anterior exam) Cardiovascular: Rate/Rhythm: regular rate and regular rhythm Extremities: no edema Gastrointestinal (Abdomen): Inspection/Auscultation: normal bowel sounds Percussion/Palpation: + abdomen tender (L sided upper/lower quadrants and suprapubic w/o rebound or guarding) and abdomen soft; no fluid wave Musculoskeletal: Extremities: strength 5/5 throughout Skin: no rashes, warm and dry Neurologic: central and limb tremors Results & Data ([facility]) Vital Signs (Past 12 Hours) Vital Signs Temp Pulse Pulse Resp BP BP Pulse Ox 11/27/21 08:30 36.5 C 69 20 119/75 99 11/27/21 07:27 63 11/27/21 06:08 66 110/76 11/27/21 06:06 66 110/76 11/27/21 02:06 36.9 C 60 20 100/68 96 11/27/21 00:11 67 101/67 11/27/21 00:10 67 101/67 11/26/21 23:21 89 11/26/21 22:41 37.0 C 86 18 112/74 97 11/26/21 21:24 73 113/75 Laboratory Results 11/27/21 07:42 11/27/21 07:42 11/27/21 07:42
[2021-11-27 08:57] LABS: BUN Creatinine Ratio 14.4 (10-20); Calcium 8.2 mg/dl (8.5-10.1); Creatinine Clr Calc Pharmacy 30.2 ml/min; Est GFR (African American) 36.1 ml/min; Est GFR (Non-African American) 31.1 ml/min; Potassium 3.7 mmol/L (3.5-5.1)
--- NOTE | 2021-11-27 10:03 | Hospitalist Progress Note ---
Date of Service November 27, 2021 Assessment & Plan (1) Acute UTI: Plan: Patient on admission with left lower abdominal and flank pain CT abd/pelvis showed left ureteral stent in place, left sided nephrolithiasis, no significant change in urothelial thickening within both collecting systems and proximal ureters as well as bladder wall thickening with adjacent infiltration. Patient has recent left ureteral staent placement and left nephrolithiasis S/p cystoscopy with left ureteroscopy, laser lithotripsy, stone basket extraction, and left stent exchange by urology POD #4 Urine culture 11/17/21 grew Klebsiella which was pansensitive However, patient seem to have possible sepsis with fever, tachycardia post procedure Hence, antibiotics was changed from ceftriaxone to cefepime Urology also started iv fluconazole as patient had a recent Urine culture on 10/18/21 that grew ruben Repeat Urine culture from 11/26/21 now growing probable enterococcus Last fever >24h now. Reviewed allergy with pharm. Abx changed to zosyn which pt had tolerated before per pharm. F/u UCx sensitivities Continue Flomax and Pyridium as needed for pain PERRI on chronic kidney disease stage III: Creatinine 1.9 on admission with creatinine at baseline, 1.4 Creatinine worsened to 2.29. Now improving at 1.67 today Continue normosol IVF Nephrology recs appreciated Avoid nephrotoxins Encourage po History of chronic obstructive pulmonary disease and chronic respiratory failure : On 2L [place] Continue her home inhalers. Diabetes: Hemoglobin A1c 6.1 on 10/31 Glipizide on hold insulin sliding scale per protocol Continue monitor blood sugar Currently on liquid diet. Will advance as tolerated History of colon cancer: Status post laparoscopic colectomy, total proctectomy and ileostomy, and ileoproctostomy in 2010. Morbid obesity: Will need more education on weight loss Anemia: Hemoglobin 9.3 Continue monitor H&H Hyperlipidemia: Continue statin Hypertension: Continue metoprolol. Deep venous thrombosis prophylaxis:on Heparin PT/OT recommends SNF Admission and Anticipated Discharge Date Admission Date: November 18, 2021 Subjective Patient seen and examined. Reports nausea is significantly improved Reports left sided abd pain is improved No fevers in >24h Denied any chills, vomiting Reports chronic cough unchanged Denies any chest pain, palpitations, dizziness Denies dysuria, frequency, hematuria Physical Exam Constitutional: + well hydrated and + obese; no acute distress Eyes: PERRL, conjunctivae normal, anicteric sclerae ENMT: external ear and nose normal, oropharynx normal Respiratory: normal respiratory effort, lungs clear to auscultation Cardiovascular: Rate/Rhythm: regular rate and regular rhythm S1 S2 Gastrointestinal (Abdomen): normal bowel sounds, soft, nontender, no hepatosplenomegaly Musculoskeletal: No pedal edema Neurologic: PERRL, EOMI, accommodation nl, no face palsy, no dysarthria Psychiatric: A+Ox3, euthymic affect Genitourinary: Left CVA tenderness Results & Data Results & Data ([facility]) Vital Signs (Past 12 Hours) Vital Signs Temp Pulse Pulse Resp BP BP Pulse Ox 11/27/21 08:30 36.5 C 69 20 119/75 99 11/27/21 07:27 63 11/27/21 06:08 66 110/76 11/27/21 06:06 66 110/76 11/27/21 02:06 36.9 C 60 20 100/68 96 11/27/21 00:11 67 101/67 11/27/21 00:10 67 101/67 11/26/21 23:21 89 11/26/21 22:41 37.0 C 86 18 112/74 97 Laboratory Results Abnormal lab results 11/26/21 11/27/21 11/27/21 Range/Units 11:36 07:42 07:42 WBC 3.60 L (4.8-10.8) K/uL RBC 2.90 L (4.2-5.4) M/uL Hgb 8.4 L (12.0-16.0) g/dL Hct 27.7 L (37-47) % MCHC 30.3 L (32-36) g/dL RDW Std Deviation 50.4 H (36.4-46.3) fL MPV 11.0 H (7.4-10.4) fL Chloride 109 H (98-107) mmol/L BUN 24 H (6-23) mg/dl Creatinine 1.67 H D (0.6-1.2) mg/dl POC Glucose 133 H (70-99) mg/dl Calcium 8.2 L (8.5-10.1) mg/dl
[2021-11-27] MEDS ORDERED: PIPERACILL/TAZOBAC CONSULT ACTIVE PRN (10:42)
[2021-11-27] MEDS ORDERED: PIPERACILLIN/TAZOBACTAM 4.5 GM in DEXTROSE 5% 100 ML IV ONE (11:00)
[2021-11-27] MEDS: MoRPHine SULFATE 2 MG/ML CARP IV PRN ×3 (11:37→21:07)
[2021-11-27] MEDS: PIPERACILLIN/TAZOBACTAM 4.5 GM in DEXTROSE 5% 100 ML IV SCH (16:20)
[2021-11-27] MEDS: ONDANSETRON INJ 2 MG/ML 2 ML VIAL IV PRN (21:07)
[2021-11-27] MEDS: ATORVASTATIN 40 MG TAB PO SCH (21:47)
[2021-11-27] MEDS: CLOPIDOGREL BISULFATE 75 MG TAB PO SCH (21:48)
[2021-11-27] MEDS: MAGNESIUM OXIDE 400 MG TAB PO SCH (21:48)
[2021-11-27] MEDS: METOPROLOL SUCC 25MG EXT REL TAB PO SCH (21:49)
[2021-11-27] MEDS ORDERED: METOPROLOL TARTRATE 1 MG/ML VIAL IV PRN (23:53)
[2021-11-28] MEDS: PIPERACILLIN/TAZOBACTAM 4.5 GM in DEXTROSE 5% 100 ML IV SCH ×2 (00:13→08:02)
[2021-11-28] MEDS: MoRPHine SULFATE 2 MG/ML CARP IV PRN ×4 (03:26→21:41)
[2021-11-28] MEDS: NORMOSOL-R 1,000 ML IV SCH ×3 (05:49→18:24)
[2021-11-28 06:50] LABS: Hematocrit (blood only) 26.2 % (37-47); Hemoglobin 8.1 g/dL (12.0-16.0); Mean Corpuscular Hemoglobin 29.2 pg (25-34); Mean Corpuscular Hgb Conc 30.9 g/dL (32-36); Mean Corpuscular Volume 94.6 fL (80-100); Mean Platelet Volume 10.8 fL (7.4-10.4); Platelet Count 147 K/uL (130-400); RDW Coefficient of Variation 14.4 % (11.5-14.5); RDW Standard Deviation 50.1 fL (36.4-46.3); Red Blood Count 2.77 M/uL (4.2-5.4); White Blood Count 3.07 K/uL (4.8-10.8)
[2021-11-28 07:11] LABS: BUN Creatinine Ratio 12.9 (10-20); Calcium 8.1 mg/dl (8.5-10.1); Creatinine Clr Calc Pharmacy 33.6 ml/min; Est GFR (African American) 42.1 ml/min; Est GFR (Non-African American) 36.3 ml/min; Potassium 3.6 mmol/L (3.5-5.1)
[2021-11-28] MEDS: CHOLECALCIFEROL 1,000 UNITS 25 MCG TAB PO SCH (07:56)
[2021-11-28] MEDS: OXcarbazepine 150 MG TABLET PO SCH ×2 (07:56→21:40)
[2021-11-28] MEDS: PANTOprazole 40 MG TAB PO SCH ×2 (07:57→21:39)
[2021-11-28] MEDS: METOPROLOL SUCC 50MG EXT REL TAB PO SCH (07:57)
[2021-11-28] MEDS: TAMSULOSIN HCL 0.4 MG CAP PO SCH (07:58)
[2021-11-28] MEDS: HEPARIN SOD 5,000 UNIT/0.5 ML VIAL SQ SCH ×2 (07:58→21:41)
[2021-11-28] MEDS: ACETAMINOPHEN 500 MG TAB PO SCH ×3 (08:00→21:38)
[2021-11-28] MEDS: LIDOCAINE 5% 1 PATCH TD SCH ×2 (08:03→09:47)
[2021-11-28] MEDS: INSULIN ASPART PER UNIT SC SCH ×4 (08:32→21:05)
[2021-11-28] MEDS: FLUCONAZOLE 100 MG/50 ML BAG IV SCH (09:08)
--- NOTE | 2021-11-28 09:38 | Hospitalist Progress Note ---
Date of Service November 28, 2021 Assessment & Plan (1) Acute UTI: Plan: Patient on admission with left lower abdominal and flank pain CT abd/pelvis showed left ureteral stent in place, left sided nephrolithiasis, no significant change in urothelial thickening within both collecting systems and proximal ureters as well as bladder wall thickening with adjacent infiltration. Patient has recent left ureteral staent placement and left nephrolithiasis S/p cystoscopy with left ureteroscopy, laser lithotripsy, stone basket extraction, and left stent exchange by urology POD #5 Urine culture 11/17/21 grew Klebsiella which was pansensitive However, patient seem to have possible sepsis with fever, tachycardia post procedure Urology also started iv fluconazole as patient had a recent Urine culture on 10/18/21 that grew ruben Repeat Urine culture from 11/26/21 now growing enterococcus Fever is resolved Antibiotic changed to vancomycin based on sensitivities Stop fluconazole Continue Flomax Patient will follow up with Urology outpatient PERRI on chronic kidney disease stage III: Creatinine 1.9 on admission with creatinine at baseline, 1.4 Creatinine worsened to 2.29. Now improving at 1.47 today Currently on normosol IVF Nephrology recs appreciated Avoid nephrotoxins Encourage po History of chronic obstructive pulmonary disease and chronic respiratory failure : On 2L [place] Continue her home inhalers. Diabetes: Hemoglobin A1c 6.1 on 10/31 Glipizide on hold insulin sliding scale per protocol Continue monitor blood sugar Tolerating diet well History of colon cancer: Status post laparoscopic colectomy, total proctectomy and ileostomy, and ileoproctostomy in 2010. Morbid obesity: Will need more education on weight loss Anemia: Hemoglobin 8.1 Continue monitor H&H Hyperlipidemia: Continue statin Hypertension: Continue metoprolol. Deep venous thrombosis prophylaxis:on Heparin Patient wants to go home on dc. Has Admission and Anticipated Discharge Date Admission Date: November 18, 2021 Subjective Patient seen and examined. Reports left sided abd pain continue to improve Denied any chills, vomiting Fever is resolved Has chronic intermittent cough but reports none today Denies any chest pain, palpitations, dizziness Denies dysuria, frequency, hematuria Reports her knee arthritis is acting up with increased activity Physical Exam Constitutional: + well hydrated and + obese; no acute distress Eyes: PERRL, conjunctivae normal, anicteric sclerae ENMT: external ear and nose normal, oropharynx normal Respiratory: normal respiratory effort, lungs clear to auscultation Cardiovascular: Rate/Rhythm: regular rate and regular rhythm S1 S2 Gastrointestinal (Abdomen): normal bowel sounds, soft, nontender, no hepatosplenomegaly Neurologic: PERRL, EOMI, accommodation nl, no face palsy, no dysarthria Psychiatric: A+Ox3, euthymic affect Genitourinary: +left CVA tenderness Results & Data Results & Data ([facility]) Vital Signs (Past 12 Hours) Vital Signs Temp Pulse Pulse Pulse Resp BP Pulse Ox 11/28/21 07:41 36.7 C 77 18 125/83 99 11/28/21 07:32 66 11/28/21 03:20 36.8 C 75 18 107/73 95 11/27/21 23:25 93 H 11/27/21 22:42 36.9 C 88 18 108/73 95 Laboratory Results Abnormal lab results 11/27/21 11/27/21 11/28/21 Range/Units 11:28 20:01 06:11 WBC 3.07 L (4.8-10.8) K/uL RBC 2.77 L (4.2-5.4) M/uL Hgb 8.1 L (12.0-16.0) g/dL Hct 26.2 L (37-47) % MCHC 30.9 L (32-36) g/dL RDW Std Deviation 50.1 H (36.4-46.3) fL MPV 10.8 H (7.4-10.4) fL Creatinine (0.6-1.2) mg/dl POC Glucose 135 H 125 H (70-99) mg/dl Calcium (8.5-10.1) mg/dl 11/28/21 Range/Units 06:11 WBC (4.8-10.8) K/uL RBC (4.2-5.4) M/uL Hgb (12.0-16.0) g/dL Hct (37-47) % MCHC (32-36) g/dL RDW Std Deviation (36.4-46.3) fL MPV (7.4-10.4) fL Creatinine 1.47 H (0.6-1.2) mg/dl POC Glucose (70-99) mg/dl Calcium 8.1 L (8.5-10.1) mg/dl
--- NOTE | 2021-11-28 10:21 | Nephrology Progress Note ---
Date of Service November 28, 2021 Assessment & Plan (1) Acute on chronic renal failure: Plan: prerenal PERRI on CKD 4. - baseline creatinine 1.7-2 most recently, or early CKD4. was at/ near baseline this admission until 11/25 when her creat bumped to 2.3. Last fever November 24 and is still hardly taking shayla. CT scan and repeat UA at least not concerning/ as expected after recent procedure -Renal functions back to baseline -continue normosol at 125ml/hr -daily bmp -cont to avoid nephrotoxins -encourage po -pyridium can cause PERRI and would avoid in this CKD patient - she had one dose only this admission on on 11/21 will continue to follow but can offer preliminary d/c recs >>Needs hospital discharge appt with Dr Copeland 2-4 weeks after discharge gely bowden; keep neph PA appt in January; weekly bmp x 3 to be ordered by nephro nurse at d/c (2) Recurrent UTI: Plan: low threshold for ID c/s if not already done -cont cefepime, f/u repeat cultures >>>>UACM reassuring in that no bacteria > f/u cxs re yeast; treating empirically for enterococcus though note there were no bacteria on UA; concern cx reflects contaminant -Remains on empiric fluconazole pending culture results as well (3) Left ureteral stone: Plan: -Needs to push IV/PO fluids w/ goal 2L UOP daily minimum -cont urology f/u (4) Complicated UTI (urinary tract infection): Plan: as above Admission and Anticipated Discharge Date Admission Date: November 18, 2021 Subjective Patient seen and examined. Had a rough night, left sided abd pain improved. -Passing urine not recorded Review of Systems Review of Systems: Left-sided abdominal pain Alert oriented not in distress Physical Exam Physical Exam: GENERAL: Comfortable, not in distress, left-sided abdominal/flank pain EYE EXAM: normal conjunctiva, PERRL and EOM's grossly intact OROPHARYNX: Dry mucous membrane LUNGS: Clear to auscultation. Normal chest wall mechanics, no w/r/r HEART: no murmurs, S1 normal and S2 normal ABDOMEN: abdomen soft, non-tender, normo-active bowel sounds LOWER EXTREMITIES: No pitting edema. NEURO EXAM: Alert oriented Results & Data ([facility]) Vital Signs (Past 12 Hours) Vital Signs Temp Pulse Pulse Pulse Resp BP Pulse Ox 11/28/21 07:41 36.7 C 77 18 125/83 99 11/28/21 07:32 66 11/28/21 03:20 36.8 C 75 18 107/73 95 11/27/21 23:25 93 H 11/27/21 22:42 36.9 C 88 18 108/73 95 Laboratory Results 11/28/21 06:11 11/28/21 06:11
[2021-11-28] MEDS ORDERED: VANCOMYCIN CONSULT ACTIVE PRN (12:07)
[2021-11-28] MEDS ORDERED: VANCOMYCIN HCL 2,000 MG in SODIUM CHLORIDE 0.9% 500 ML IV SCH (13:00)
--- NOTE | 2021-11-28 13:00 | Pharmacy Report ---
Pharmacy Vanc AUC Short Note - Date of Service November 28, 2021 - Assessment & Plan Assessment 66 year old F receiving Vancomycin for treatment of complicateed UTI. Pertinent microbiologic data includes: Urine grew Enterococcus Faecium sensitive to Vanco and Dapto. Blood cultures pending. Pt admitted with left lower abdominal and flank pain. Left ureteral stent placed. Pt presented with possible sepsis with fever and tachycardia post procedure. Pt currently afebrile. Renal function has returned to near baseline (Scr -1.47). Zosyn discontinued and pt initiated on Vancomycin based on C+S. Plan Vancomycin * AUC/ABBY is the preferred PK/PD target for vancomycin * AUC guided dosing is effective and associated with decreased risk of nephrotoxicity compared to traditional trough targets * Vancomycin 2000mg IV x 1 followed by Vancomycin 1250mg IV Q24H - trough level of 16.3mcg/mL is predicted to achieve target AUC/ABBY of 400-600 mg/L.hr and may be associated with a 12% risk of nephrotoxicity * Trough level ordered for: 11/30/21 Pharmacy will continue to follow and will adjust dose/frequency as necessary. Thank you.
[2021-11-28] MEDS: ONDANSETRON INJ 2 MG/ML 2 ML VIAL IV PRN (14:43)
[2021-11-28] MEDS: CLOPIDOGREL BISULFATE 75 MG TAB PO SCH (21:40)
[2021-11-28] MEDS: MAGNESIUM OXIDE 400 MG TAB PO SCH (21:40)
[2021-11-28] MEDS: METOPROLOL SUCC 25MG EXT REL TAB PO SCH (21:40)
[2021-11-28] MEDS: ATORVASTATIN 40 MG TAB PO SCH (21:40)
[2021-11-29] MEDS: NORMOSOL-R 1,000 ML IV SCH ×3 (01:37→12:29)
[2021-11-29] MEDS: ACETAMINOPHEN 500 MG TAB PO SCH ×4 (05:09→20:51)
[2021-11-29 06:07] LABS: BUN Creatinine Ratio 9.9 (10-20); Calcium 8.1 mg/dl (8.5-10.1); Creatinine Clr Calc Pharmacy 35.1 ml/min; Est GFR (African American) 44.3 ml/min; Est GFR (Non-African American) 38.2 ml/min; Potassium 3.4 mmol/L (3.5-5.1)
[2021-11-29] MEDS: LIDOCAINE 5% 1 PATCH TD SCH ×2 (07:39→07:40)
[2021-11-29] MEDS: TAMSULOSIN HCL 0.4 MG CAP PO SCH (07:40)
[2021-11-29] MEDS: OXcarbazepine 150 MG TABLET PO SCH ×2 (07:41→20:09)
[2021-11-29] MEDS: HEPARIN SOD 5,000 UNIT/0.5 ML VIAL SQ SCH ×2 (07:42→20:12)
[2021-11-29] MEDS: CHOLECALCIFEROL 1,000 UNITS 25 MCG TAB PO SCH (07:42)
[2021-11-29] MEDS: PANTOprazole 40 MG TAB PO SCH ×2 (07:42→20:08)
[2021-11-29] MEDS: METOPROLOL SUCC 50MG EXT REL TAB PO SCH (07:43)
[2021-11-29] MEDS: INSULIN ASPART PER UNIT SC SCH ×4 (08:05→20:45)
[2021-11-29] MEDS: MoRPHine SULFATE 2 MG/ML CARP IV PRN ×2 (08:29→17:30)
--- NOTE | 2021-11-29 09:46 | Hospitalist Progress Note ---
Date of Service November 29, 2021 Assessment & Plan (1) Acute UTI: Plan: Patient on admission with left lower abdominal and flank pain CT abd/pelvis showed left ureteral stent in place, left sided nephrolithiasis, no significant change in urothelial thickening within both collecting systems and proximal ureters as well as bladder wall thickening with adjacent infiltration. Patient has recent left ureteral staent placement and left nephrolithiasis S/p cystoscopy with left ureteroscopy, laser lithotripsy, stone basket extraction, and left stent exchange by urology POD #6 Urine culture 11/17/21 grew Klebsiella which was pansensitive However, patient seem to have possible sepsis with fever, tachycardia post procedure Repeat Urine culture from 11/26/21 now growing enterococcus Fever is resolved Antibiotic changed to vancomycin based on sensitivities Continue Flomax Patient will follow up with Urology outpatient PERRI on chronic kidney disease stage III: Creatinine 1.9 on admission with creatinine at baseline, 1.4 Creatinine worsened to 2.29. Now improving at 1.4 today Discussed with gas manager. Continue IVF considering poor oral intake Avoid nephrotoxins Encourage po History of chronic obstructive pulmonary disease and chronic respiratory failure : On 2L [place] Continue her home inhalers. Diabetes: Hemoglobin A1c 6.1 on 10/31 Glipizide on hold Insulin sliding scale per protocol Continue monitor blood sugar Patient and RN reports poor intake due to nausea. Antiemetics History of colon cancer: Status post laparoscopic colectomy, total proctectomy and ileostomy, and ileoproctostomy in 2010. Morbid obesity: Will need more education on weight loss Anemia: Continue monitor H&H Hyperlipidemia: Continue statin Hypertension: Continue metoprolol. Deep venous thrombosis prophylaxis:on Heparin Continue PT/OT Admission and Anticipated Discharge Date Admission Date: November 18, 2021 Subjective Patient seen and examined. Patient reports left flank pain Continues to have nausea with poor oral intake Denied any fever, chills, vomiting Has chronic intermittent cough but reports none today Denies any chest pain, palpitations, dizziness Denies dysuria, frequency, hematuria Physical Exam Constitutional: + well hydrated and + obese; no acute distress Eyes: PERRL, conjunctivae normal, anicteric sclerae ENMT: external ear and nose normal, oropharynx normal Respiratory: normal respiratory effort, lungs clear to auscultation Cardiovascular: Rate/Rhythm: regular rate and regular rhythm S1 S2 Gastrointestinal (Abdomen): normal bowel sounds, soft, nontender, no hepatosplenomegaly Neurologic: PERRL, EOMI, accommodation nl, no face palsy, no dysarthria Psychiatric: A+Ox3, euthymic affect Genitourinary: Left CVA tenderness Results & Data Results & Data ([facility]) Vital Signs (Past 12 Hours) Vital Signs Temp Pulse Pulse Pulse Resp BP Pulse Ox 11/29/21 07:52 36.4 C L 71 20 118/74 100 11/29/21 07:10 70 11/29/21 02:40 36.6 C 70 20 109/76 99 11/29/21 00:03 92 H 11/28/21 23:27 36.7 C 92 H 18 114/78 100 Laboratory Results Abnormal lab results 11/28/21 11/29/21 Range/Units 16:28 05:18 Potassium 3.4 L (3.5-5.1) mmol/L Chloride 109 H (98-107) mmol/L Creatinine 1.41 H (0.6-1.2) mg/dl BUN/Creatinine Ratio 9.9 L (10-20) POC Glucose 100 H (70-99) mg/dl Calcium 8.1 L (8.5-10.1) mg/dl
[2021-11-29] MEDS: VANCOMYCIN HCL 1,250 MG in SODIUM CHLORIDE 0.9% 250 ML IV SCH (12:36)
[2021-11-29] MEDS ORDERED: POTASSIUM CHLORIDE PWD 20 MEQ PACK PO ONE (14:18)
[2021-11-29] MEDS: ONDANSETRON INJ 2 MG/ML 2 ML VIAL IV PRN ×2 (14:53→20:48)
[2021-11-29] MEDS: ATORVASTATIN 40 MG TAB PO SCH (20:09)
[2021-11-29] MEDS: CLOPIDOGREL BISULFATE 75 MG TAB PO SCH (20:10)
[2021-11-29] MEDS: MAGNESIUM OXIDE 400 MG TAB PO SCH (20:10)
[2021-11-29] MEDS: METOPROLOL SUCC 25MG EXT REL TAB PO SCH (20:11)
[2021-11-30] MEDS: NORMOSOL-R 1,000 ML IV SCH ×2 (01:33→10:40)
[2021-11-30] MEDS: ACETAMINOPHEN 500 MG TAB PO SCH ×3 (05:15→22:09)
[2021-11-30 07:44] LABS: Hematocrit (blood only) 25.5 % (37-47); Hemoglobin 7.7 g/dL (12.0-16.0); Mean Corpuscular Hemoglobin 29.2 pg (25-34); Mean Corpuscular Hgb Conc 30.2 g/dL (32-36); Mean Corpuscular Volume 96.6 fL (80-100); Mean Platelet Volume 9.9 fL (7.4-10.4); Platelet Count 213 K/uL (130-400); RDW Coefficient of Variation 14.6 % (11.5-14.5); RDW Standard Deviation 51.8 fL (36.4-46.3); Red Blood Count 2.64 M/uL (4.2-5.4); White Blood Count 4.32 K/uL (4.8-10.8)
[2021-11-30 08:05] LABS: BUN Creatinine Ratio 7.8 (10-20); Calcium 8.2 mg/dl (8.5-10.1); Creatinine Clr Calc Pharmacy 39.5 ml/min; Est GFR (African American) 49.3 ml/min; Est GFR (Non-African American) 42.5 ml/min; Magnesium 1.5 mg/dl (1.7-2.4); Phosphorus 1.7 mg/dl (2.5-4.9); Potassium 3.5 mmol/L (3.5-5.1)
[2021-11-30] MEDS: INSULIN ASPART PER UNIT SC SCH ×4 (09:29→21:37)
[2021-11-30] MEDS: LIDOCAINE 5% 1 PATCH TD SCH ×2 (09:30→10:51)
--- NOTE | 2021-11-30 09:53 | Nephrology Progress Note ---
Date of Service November 30, 2021 Assessment & Plan Admission and Anticipated Discharge Date Admission Date: November 18, 2021 Subjective Assessment & Plan (1) Acute on chronic renal failure: baseline creatinine 1.7-2 most recently, or early CKD4. was at/ near baseline this admission until today when her creat bumped to 2.3. she has had fever and is hardly taking po > suspect prerenal Renal labs improving. UO not sure but making urine-not measured. -Lower fluid to 75/hr -daily bmp -pyridium can cause PERRI and would avoid in this CKD patient - she had one dose only this admission on on 11/21 (2) Recurrent UTI: low threshold for ID c/s if not already done -cont cefepime, f/u repeat cultures (3) Left ureteral stone: -Needs to push IV/PO fluids w/ goal 2L UOP daily minimum -cont urology f/u (4) Complicated UTI (urinary tract infection): as above Review of Systems Review of Systems: All systems reviewed & are unremarkable except as noted in HPI & below Physical Exam Constitutional: well developed, well nourished, + obese, + frail appearing and cooperative; no acute distress Eyes: EOM intact bilaterally ENMT: Ears: no external ear abnormality Nose: no external nose abnormality Mouth: + dry oral mucous membranes Neck: no nuchal rigidity Respiratory: normal respiratory effort Auscultation: + diminished lung sounds Cardiovascular: Rate/Rhythm: regular rate and regular rhythm Extremities: no edema Gastrointestinal (Abdomen): Inspection/Auscultation: normal bowel sounds Percussion/Palpation: + abdomen tender (L sided w/o rebound or guarding) and abdomen soft; no fluid wave Musculoskeletal: Extremities: strength 5/5 throughout Skin: no rashes, warm and dry Neurologic: gomez, fluent speech, + tremor Genitourinary: purewick hernandez in place Results & Data ([facility]) Vital Signs (Past 12 Hours) Vital Signs Temp Pulse Pulse Resp BP Pulse Ox 11/30/21 07:34 36.7 C 89 18 124/76 97 11/30/21 07:00 76 11/30/21 03:15 36.6 C 80 20 113/74 97 11/29/21 22:52 37.1 C 93 H 18 126/78 96 11/29/21 22:18 91 H
[2021-11-30] MEDS: ONDANSETRON INJ 2 MG/ML 2 ML VIAL IV PRN ×2 (10:00→20:40)
[2021-11-30] MEDS: MoRPHine SULFATE 2 MG/ML CARP IV PRN ×2 (10:00→18:48)
[2021-11-30] MEDS: HEPARIN SOD 5,000 UNIT/0.5 ML VIAL SQ SCH ×2 (10:11→22:08)
--- NOTE | 2021-11-30 10:27 | Hospitalist Progress Note ---
Date of Service November 30, 2021 Assessment & Plan (1) Acute UTI: Plan: Patient on admission with left lower abdominal and flank pain CT abd/pelvis showed left ureteral stent in place, left sided nephrolithiasis, no significant change in urothelial thickening within both collecting systems and proximal ureters as well as bladder wall thickening with adjacent infiltration. Patient has recent left ureteral stent placement and left nephrolithiasis S/p cystoscopy with left ureteroscopy, laser lithotripsy, stone basket extraction, and left stent exchange by urology POD #7 Urine culture 11/17/21 grew Klebsiella which was pansensitive However, patient seem to have possible sepsis with fever, tachycardia post procedure Repeat Urine culture from 11/26/21 now growing enterococcus Fever is resolved Antibiotic changed to vancomycin based on sensitivities Repeat CT on 11/25/21 did not show any abscess but showed perinephric stranding Considering persistent symptoms, will repeat CT abd Continue Flomax Patient will follow up with Urology outpatient Check c diff with reported diarrhea as patient has been on antibiotics PERRI on chronic kidney disease stage III: Creatinine 1.9 on admission with creatinine at baseline, 1.4 Creatinine worsened to 2.29. Now improving at 1.29 today PERRI is resolved Discussed with shearing machine tender. Continue IVF at reduced rate of 75cc/h considering poor oral intake Avoid nephrotoxins Encourage po History of chronic obstructive pulmonary disease and chronic respiratory failure : On 2L [place] Continue her home inhalers. Diabetes: Hemoglobin A1c 6.1 on 10/31 Glipizide on hold Insulin sliding scale per protocol Continue monitor blood sugar Patient and RN reports poor intake due to nausea. Antiemetics History of colon cancer: Status post laparoscopic colectomy, total proctectomy and ileostomy, and ileoproctostomy in 2010. Morbid obesity: Will need more education on weight loss Anemia: Patient's hb is 7.7 Baseline appear to be 8-9 on average in the past 2 months Hyperlipidemia: Continue statin Hypertension: Continue metoprolol. Deep venous thrombosis prophylaxis:on Heparin Continue PT/OT Admission and Anticipated Discharge Date Admission Date: November 18, 2021 Subjective Patient seen and examined. Patient reports persistent flank pain Continues to have nausea with poor oral intake Reported 3 episodes of watery diarrhea today Denied any fever, chills, vomiting Denies any chest pain, palpitations, dizziness Denies dysuria, frequency, hematuria Physical Exam Constitutional: + well hydrated and + obese; no acute distress Eyes: PERRL, conjunctivae normal, anicteric sclerae ENMT: external ear and nose normal, oropharynx normal Respiratory: normal respiratory effort, lungs clear to auscultation Cardiovascular: Rate/Rhythm: regular rate and regular rhythm S1 S2 Gastrointestinal (Abdomen): normal bowel sounds, soft, nontender, no hepatosplenomegaly Neurologic: PERRL, EOMI, accommodation nl, no face palsy, no dysarthria Psychiatric: A+Ox3, euthymic affect Results & Data Results & Data ([facility]) Vital Signs (Past 12 Hours) Vital Signs Temp Pulse Pulse Resp BP Pulse Ox 11/30/21 07:34 36.7 C 89 18 124/76 97 11/30/21 07:00 76 11/30/21 03:15 36.6 C 80 20 113/74 97 11/29/21 22:52 37.1 C 93 H 18 126/78 96 Laboratory Results Abnormal lab results 11/29/21 11/30/21 11/30/21 Range/Units 20:07 07:20 07:24 WBC (4.8-10.8) K/uL RBC (4.2-5.4) M/uL Hgb (12.0-16.0) g/dL Hct (37-47) % MCHC (32-36) g/dL RDW Std Deviation (36.4-46.3) fL RDW Coeff of Teresa (11.5-14.5) % Chloride 111 H (98-107) mmol/L Creatinine 1.29 H (0.6-1.2) mg/dl BUN/Creatinine Ratio 7.8 L (10-20) Glucose 110 H (70-99(Fasting)) mg/dl POC Glucose 125 H 121 H (70-99) mg/dl Calcium 8.2 L (8.5-10.1) mg/dl Phosphorus 1.7 L (2.5-4.9) mg/dl Magnesium 1.5 L (1.7-2.4) mg/dl 11/30/21 Range/Units 07:24 WBC 4.32 L (4.8-10.8) K/uL RBC 2.64 L (4.2-5.4) M/uL Hgb 7.7 L (12.0-16.0) g/dL Hct 25.5 L (37-47) % MCHC 30.2 L (32-36) g/dL RDW Std Deviation 51.8 H (36.4-46.3) fL RDW Coeff of Teresa 14.6 H (11.5-14.5) % Chloride (98-107) mmol/L Creatinine (0.6-1.2) mg/dl BUN/Creatinine Ratio (10-20) Glucose (70-99(Fasting)) mg/dl POC Glucose (70-99) mg/dl Calcium (8.5-10.1) mg/dl Phosphorus (2.5-4.9) mg/dl Magnesium (1.7-2.4) mg/dl
[2021-11-30] MEDS ORDERED: POTASSIUM PHOS 3 MMOL/1 ML INFUSION IV STA (10:28)
[2021-11-30] MEDS: CHOLECALCIFEROL 1,000 UNITS 25 MCG TAB PO SCH (10:51)
[2021-11-30] MEDS ORDERED: POTASSIUM PHOSPHATE 30 MMOL in SODIUM CHLORIDE 0.9% 500 ML IV ONE (11:00)
[2021-11-30] MEDS: PANTOprazole 40 MG TAB PO SCH ×2 (12:02→21:38)
[2021-11-30] MEDS: OXcarbazepine 150 MG TABLET PO SCH ×2 (12:02→21:38)
[2021-11-30] MEDS: METOPROLOL SUCC 50MG EXT REL TAB PO SCH (12:02)
[2021-11-30] MEDS: MAGNESIUM SULFATE / D5W 1 GM/100 ML BAG IV SCH ×2 (12:03→16:00)
[2021-11-30] MEDS: TAMSULOSIN HCL 0.4 MG CAP PO SCH (12:03)
--- NOTE | 2021-11-30 12:26 | CT Scan Report ---
CT SCAN OF THE ABDOMEN AND PELVIS WITHOUT IV CONTRAST CLINICAL HISTORY: Follow-up infection/abscess. Generalized abdominal pain. Diarrhea. COMPARISON STUDY: Abdominal CT scan dated 11/25/2021 COMBO 10/16/2021, and 03/18/2011. TECHNIQUE: CT scan of the abdomen and pelvis is performed from the lung bases to the proximal femora. Images are reviewed in the axial, sagittal, and coronal planes. IV contrast was not administered for this examination. Note that the examination was performed in significantly suboptimal fashion withou t IV contrast. A dose lowering technique was utilized adhering to the principles of ALARA. CT DOSE: 945.75 mGycm FINDINGS: Lung bases: The heart is normal in size and without pericardial effusion. There is trace left pleural effusion and bibasilar atelectasis. There are scattered calcified granulomas. No airspace consolidat ion is seen typical for pneumonia. There is a moderate hiatal hernia. Liver: The unenhanced liver is normal in size, contour, and attenuation. There is no intrahepatic george iary ductal dilatation. Gallbladder: Surgically absent noting clips in the gallbladder fossa. Spleen: Normal in size and attenuation. Pancreas: The unenhanced pancreas is moderately atrophic and grossly unremarkable. Adrenal glands: Unremarkable. Kidneys: There is asymmetric cortical atrophy of the left kidney as compared the right with numerous foci of cortical scarring. There are least 4 nonobstructing left renal calculi which measure up to 10 mm. A 4 mm nonobstructing calculus is seen in the right kidney. A left ureteral stent is in appropri ate position. No calcifications are identified in the left ureter along the course of the stent. Ther e is mild left-sided hydronephrosis with associated left-sided perinephric stranding and fluid. Ther e is also inflammatory stranding around the left ureter. No hydronephrosis is seen on the right. Ther e is a 7.2 x 4.1 cm thick-walled cyst identified in the upper pole of the left kidney. This cyst has been present dating back to 2010. There is no gas within this cyst or the left renal collecting syste m. Abdominal vasculature: The abdominal aorta is normal in course and caliber. Bowel: There is postoperative change of subtotal colectomy with ileosigmoid anastomosis. No bowel obs truction is seen. The appendix is surgically absent. Peritoneum: There is no intraperitoneal free air or abdominal ascites. There is laxity of the ventral abdominal wall with diastases of the rectus musculature and protrusion of abdominal contents. Lymphadenopathy: None. Pelvic viscera: There is pericystic inflammation. The bladder contains the distal end of a left urete ral stent. The uterus is surgically absent. No adnexal lesion is identified. Skeletal structures: The skeletal structures are osteopenic. There is mild to moderate lumbosacral sp ondylosis. No lytic or blastic lesions are seen. Soft tissues: Soft tissue induration is seen throughout the left flank. Foci of induration within the lower abdominal pannus are likely related to subcutaneous injections. IMPRESSION: 1. A left ureteral stent is in appropriate position. No calculi are identified in the left ureter bradly ng the course of the stent. 2. There is mild left-sided hydronephrosis. 3. There is pericystic inflammation, as well as inflammatory change and fluid around the left kidney and left ureter. Although this could be related to the presence of an indwelling stent, correlate wit h clinical findings and urinalysis for evidence of superimposed urinary tract infection. 4. There is a 7.2 cm cyst identified in the upper pole of left kidney which is been present dating ba to 2010. The cyst appears thick walled with surrounding inflammation, and superimposed infection i s not excluded. 5. Bilateral nephrolithiasis as above. 6. Trace left pleural effusion. 7. Moderate hiatal hernia. 8. Subtotal colectomy. 9. Subcutaneous soft tissue induration is seen throughout the left flank. 10. Additional findings as above. ACT 112: Negative or not required by law. Electronically signed by: Caesar Yoon M.D. 11/30/2021 12:24 PM
[2021-11-30] MEDS ORDERED: VANCOMYCIN TROUGH ONE (12:30)
[2021-11-30] MEDS: PROMETHAZINE HCL 12.5 MG in SODIUM CHLORIDE 0.9% 50 ML IV PRN (13:56)
--- NOTE | 2021-11-30 14:14 | Pharmacy Report ---
Pharmacy Vanc AUC Short Note - Date of Service November 30, 2021 - Assessment & Plan Assessment 66 year old F receiving vancomycin for enterococcus faecium UTI. Patient with hx of recent ureteral stent placement. Day # 3 of antimicrobial therapy. Plan Vancomycin * AUC/ABBY is the preferred PK/PD target for vancomycin * AUC guided dosing is effective and associated with decreased risk of nephrotoxicity compared to traditional trough targets * Trough level came back at ~17 mcg/mL. This current vancomycin dosing is predicted to achieve an AUC/ABBY of 400-600 mg/L.hr and may be associated with a 14 % risk of nephrotoxicity * Reasonable to continue current vancomycin regimen for now, likely plan to reassess level in next 2 days Pharmacy will continue to follow and will adjust dose/frequency as necessary. Thank you.
[2021-11-30] MEDS: VANCOMYCIN HCL 1,250 MG in SODIUM CHLORIDE 0.9% 250 ML IV SCH (14:23)
[2021-11-30] MEDS: OXYBUTYNIN CHLORIDE 5 MG TAB PO SCH (15:58)
[2021-11-30] MEDS ORDERED: MoRPHine SULFATE 2 MG/ML CARP IV STA (20:56)
[2021-11-30] MEDS: CLOPIDOGREL BISULFATE 75 MG TAB PO SCH (21:36)
[2021-11-30] MEDS: ATORVASTATIN 40 MG TAB PO SCH (21:36)
[2021-11-30] MEDS: MAGNESIUM OXIDE 400 MG TAB PO SCH (21:37)
[2021-11-30] MEDS: METOPROLOL SUCC 25MG EXT REL TAB PO SCH (21:37)
[2021-12-01] MEDS ORDERED: Nursing to Pharmacy Communication SCH (03:00)
[2021-12-01] MEDS: MoRPHine SULFATE 2 MG/ML CARP IV PRN ×4 (04:01→17:07)
[2021-12-01] MEDS: ACETAMINOPHEN 500 MG TAB PO SCH ×3 (05:55→23:14)
[2021-12-01] MEDS ORDERED: MoRPHine SULFATE 2 MG/ML CARP IV STA (06:17)
[2021-12-01 06:18] LABS: Hematocrit (blood only) 24.9 % (37-47); Hemoglobin 7.7 g/dL (12.0-16.0); Mean Corpuscular Hemoglobin 29.7 pg (25-34); Mean Corpuscular Hgb Conc 30.9 g/dL (32-36); Mean Corpuscular Volume 96.1 fL (80-100); Mean Platelet Volume 9.7 fL (7.4-10.4); Platelet Count 289 K/uL (130-400); RDW Coefficient of Variation 14.6 % (11.5-14.5); RDW Standard Deviation 51.3 fL (36.4-46.3); Red Blood Count 2.59 M/uL (4.2-5.4); White Blood Count 5.15 K/uL (4.8-10.8)
[2021-12-01 06:56] LABS: BUN Creatinine Ratio 6.4 (10-20); Calcium 7.9 mg/dl (8.5-10.1); Creatinine Clr Calc Pharmacy 48.8 ml/min; Est GFR (African American) 59.7 ml/min; Est GFR (Non-African American) 51.5 ml/min; Magnesium 1.9 mg/dl (1.7-2.4); Phosphorus 3.1 mg/dl (2.5-4.9); Potassium 3.9 mmol/L (3.5-5.1)
[2021-12-01] MEDS: NORMOSOL-R 1,000 ML IV SCH ×2 (08:55→23:18)
[2021-12-01] MEDS: INSULIN ASPART PER UNIT SC SCH ×4 (08:55→20:49)
[2021-12-01] MEDS: PROMETHAZINE HCL 12.5 MG in SODIUM CHLORIDE 0.9% 50 ML IV PRN ×2 (09:21→20:46)
[2021-12-01] MEDS: LIDOCAINE 5% 1 PATCH TD SCH ×2 (10:02→10:03)
[2021-12-01] MEDS: METOPROLOL SUCC 50MG EXT REL TAB PO SCH (10:03)
[2021-12-01] MEDS: HEPARIN SOD 5,000 UNIT/0.5 ML VIAL SQ SCH ×2 (10:03→20:47)
[2021-12-01] MEDS: OXcarbazepine 150 MG TABLET PO SCH ×2 (10:04→20:49)
[2021-12-01] MEDS: PANTOprazole 40 MG TAB PO SCH ×2 (10:05→20:48)
[2021-12-01] MEDS: TAMSULOSIN HCL 0.4 MG CAP PO SCH (10:05)
[2021-12-01] MEDS: PHENAZOPYRIDINE HCL 200 MG TAB PO PRN (10:06)
[2021-12-01] MEDS: CHOLECALCIFEROL 1,000 UNITS 25 MCG TAB PO SCH (10:06)
--- NOTE | 2021-12-01 10:42 | Hospitalist Progress Note ---
Date of Service December 01, 2021 Assessment & Plan (1) Acute UTI: Plan: Patient on admission with left lower abdominal and flank pain CT abd/pelvis showed left ureteral stent in place, left sided nephrolithiasis, no significant change in urothelial thickening within both collecting systems and proximal ureters as well as bladder wall thickening with adjacent infiltration. Patient has recent left ureteral stent placement and left nephrolithiasis S/p cystoscopy with left ureteroscopy, laser lithotripsy, stone basket extraction, and left stent exchange by urology POD #8 Urine culture 11/17/21 grew Klebsiella which was pansensitive However, patient seem to have possible sepsis with fever, tachycardia post procedure Repeat Urine culture from 11/26/21 now growing enterococcus Fever is resolved Antibiotic changed to vancomycin based on sensitivities Repeat CT on 11/25/21 did not show any abscess but showed perinephric stranding Patient continue to have persistent symptoms CT abd repeated yesterday showed stent in place, mild left hydronephrosis, pericystic inflammation. It also reported subcutaneous soft tiss induration in left flank Notified Dedra with Urology about patient's persistent symptoms and CT findings Continue Flomax, pyridium prn Continue symptomatic treatment PERRI on chronic kidney disease stage III: Creatinine 1.9 on admission with creatinine at baseline, 1.4 Creatinine worsened to 2.29. Now improving at 1.10 today PERRI is resolved On gentle IVF maintenance due to poor intake. Can dc once optimal po intake Avoid nephrotoxins Encourage po History of chronic obstructive pulmonary disease and chronic respiratory failure : On 2L NC Continue her home inhalers. Diabetes: Hemoglobin A1c 6.1 on 10/31 Glipizide on hold Insulin sliding scale per protocol Continue monitor blood sugar Antiemetics History of colon cancer: Status post laparoscopic colectomy, total proctectomy and ileostomy, and ileoproctostomy in 2010. Morbid obesity: Will need more education on weight loss Anemia: Patient's hb is 7.7 Baseline appear to be 8-9 on average in the past 2 months Monitor Hyperlipidemia: Continue statin Hypertension: Continue metoprolol. Deep venous thrombosis prophylaxis:on Heparin Continue PT/OT Admission and Anticipated Discharge Date Admission Date: November 18, 2021 Subjective Patient seen and examined. Patient continues to have persistent flank pain Continues to have nausea with poor oral intake No diarrhea today Denied any fever, chills, vomiting Denies any chest pain, palpitations, dizziness Denies dysuria, frequency, hematuria Physical Exam Constitutional: + well hydrated and + obese; no acute distress Eyes: PERRL, conjunctivae normal, anicteric sclerae ENMT: external ear and nose normal, oropharynx normal Respiratory: normal respiratory effort, lungs clear to auscultation Cardiovascular: Rate/Rhythm: regular rate and regular rhythm S1 S2 Gastrointestinal (Abdomen): Abd is soft, +BS, has left flank and CVA tenderness, No abd wall edema or wounds noted. Mild petechia on anterior abd at hep sq injection site Neurologic: PERRL, EOMI, accommodation nl, no face palsy, no dysarthria Psychiatric: A+Ox3, euthymic affect Results & Data Results & Data ([facility]) Vital Signs (Past 12 Hours) Vital Signs Temp Pulse Pulse Pulse Resp BP Pulse Ox 12/01/21 08:04 37.2 C 86 18 100/59 L 98 12/01/21 07:27 82 12/01/21 02:58 37.1 C 89 18 147/77 H 97 11/30/21 23:10 37.3 C 105 H 20 102/66 95 Laboratory Results Abnormal lab results 11/30/21 12/01/21 12/01/21 Range/Units 16:28 05:48 05:48 RBC 2.59 L (4.2-5.4) M/uL Hgb 7.7 L (12.0-16.0) g/dL Hct 24.9 L (37-47) % MCHC 30.9 L (32-36) g/dL RDW Std Deviation 51.3 H (36.4-46.3) fL RDW Coeff of Teresa 14.6 H (11.5-14.5) % Chloride 110 H (98-107) mmol/L BUN/Creatinine Ratio 6.4 L (10-20) POC Glucose 107 H (70-99) mg/dl Calcium 7.9 L (8.5-10.1) mg/dl 12/01/21 Range/Units 11:42 RBC (4.2-5.4) M/uL Hgb (12.0-16.0) g/dL Hct (37-47) % MCHC (32-36) g/dL RDW Std Deviation (36.4-46.3) fL RDW Coeff of Teresa (11.5-14.5) % Chloride (98-107) mmol/L BUN/Creatinine Ratio (10-20) POC Glucose 129 H (70-99) mg/dl Calcium (8.5-10.1) mg/dl
[2021-12-01] MEDS: OXYBUTYNIN CHLORIDE 5 MG TAB PO SCH (12:55)
[2021-12-01] MEDS: VANCOMYCIN HCL 1,250 MG in SODIUM CHLORIDE 0.9% 250 ML IV SCH (13:01)
[2021-12-01] MEDS: ONDANSETRON INJ 2 MG/ML 2 ML VIAL IV PRN (17:06)
[2021-12-01] MEDS: CLOPIDOGREL BISULFATE 75 MG TAB PO SCH (20:46)
[2021-12-01] MEDS: ATORVASTATIN 40 MG TAB PO SCH (20:46)
[2021-12-01] MEDS: MAGNESIUM OXIDE 400 MG TAB PO SCH (20:48)
[2021-12-01] MEDS: METOPROLOL SUCC 25MG EXT REL TAB PO SCH (20:48)
[2021-12-02] MEDS: ONDANSETRON INJ 2 MG/ML 2 ML VIAL IV PRN ×2 (01:51→17:13)
[2021-12-02] MEDS: MoRPHine SULFATE 2 MG/ML CARP IV PRN ×4 (01:51→20:57)
[2021-12-02] MEDS: ACETAMINOPHEN 500 MG TAB PO SCH ×3 (05:48→20:58)
[2021-12-02 06:57] LABS: Hematocrit (blood only) 25.3 % (37-47); Hemoglobin 7.6 g/dL (12.0-16.0); Mean Corpuscular Volume 96.6 fL (80-100); Mean Platelet Volume 9.3 fL (7.4-10.4); Platelet Count 344 K/uL (130-400); RDW Coefficient of Variation 14.6 % (11.5-14.5); RDW Standard Deviation 51.5 fL (36.4-46.3); Red Blood Count 2.62 M/uL (4.2-5.4); White Blood Count 5.61 K/uL (4.8-10.8)
[2021-12-02 07:28] LABS: BUN Creatinine Ratio 5.2 (10-20); Calcium 8.2 mg/dl (8.5-10.1); Creatinine Clr Calc Pharmacy 45.9 ml/min; Est GFR (African American) 56.6 ml/min; Est GFR (Non-African American) 48.9 ml/min
[2021-12-02] MEDS: CHOLECALCIFEROL 1,000 UNITS 25 MCG TAB PO SCH (08:18)
[2021-12-02] MEDS: HEPARIN SOD 5,000 UNIT/0.5 ML VIAL SQ SCH ×2 (08:18→20:59)
[2021-12-02] MEDS: LIDOCAINE 5% 1 PATCH TD SCH ×2 (08:18→08:19)
[2021-12-02] MEDS: OXYBUTYNIN CHLORIDE 5 MG TAB PO SCH (08:19)
[2021-12-02] MEDS: METOPROLOL SUCC 50MG EXT REL TAB PO SCH (08:19)
[2021-12-02] MEDS: PANTOprazole 40 MG TAB PO SCH ×2 (08:19→20:59)
[2021-12-02] MEDS: OXcarbazepine 150 MG TABLET PO SCH ×2 (08:19→20:59)
[2021-12-02] MEDS: TAMSULOSIN HCL 0.4 MG CAP PO SCH (08:19)
[2021-12-02] MEDS: INSULIN ASPART PER UNIT SC SCH ×4 (10:09→21:00)
[2021-12-02] MEDS: VANCOMYCIN HCL 1,250 MG in SODIUM CHLORIDE 0.9% 250 ML IV SCH (13:39)
--- NOTE | 2021-12-02 13:39 | Urology Progress Note ---
Date of Service December 02, 2021 Assessment & Plan (1) Acute UTI: (2) Bilateral nephrolithiasis: (3) S/P ureteral stent placement: Plan: 66 yo F with a complex past medical historyadmitted with UTI and PERRI. - Reconsulted by hospital medicine due to patient's persistent left flank pain. - Pt POD #9 s/p cystoscopy with left ureteroscopy, laser lithotripsy, stone basket extraction, and left stent exchange. - Continues to have left flank and abdominal pain. - Afebrile, nontoxic, lab work reviewed - creatinine and WBC within normal limits, Hgb 7.6. - Urine culture 11/26 grew out Enterococcus - currently on IV Vancomycin. - Previous urine culture on 11/17 grew out Klebsiella. - CTAP 11/[address] Adam - left ureteral stent in good position, no calcifications along course of stent. Mild left hydronephrosis with left sided stranding likely post-op/stent related. Bilateral nephrolithiasis. Thick walled cyst is left upper pole of kidney. Subcutaneous soft tissue induration is seen throughout the left flank. - [place] 12/02 showed left ureteral stent in place. No significant change in left hydronephrosis. 8.6 cm cystic lesion along the upper pole of the left kidney, cyst superinfection cannot be excluded although this is relatively simple appearing by sonography. Bilateral nephrolithiasis. - Imaging and plan of care reviewed with Dr. Adam. - Left renal cyst has been present since 2010 per imaging review. She does have risk factors for infected cyst given recurrent infections and pyelonephritis. Recommend dedicated CTAP with IV con for further evaluation of renal cyst. The size of cyst meets criteria for IR drainage if suspicious for infection/abscess, which would require transfer to tertiary center with IR. However, location of cyst is challenging/risky given it's location in renal pelvis/vasculature. - Patient has contrast allergy. Discussed with Dr. Turner. - Pt is agreeable to proceed with CT w/ con with premedication protocol - Dr. Turner will arrange. - Continue supportive care and management per primary team. - Recommend continue Tamsulosin, prn Pyridium, prn oxybutynin and prn analgesics for stent discomfort. - Will continue to follow. Admission and Anticipated Discharge Date Admission Date: November 18, 2021 Subjective Reconsulted by hospital service due to persistent left flank pain. Patient seen and examined at bedside this afternoon. No acute issues overnight. Continues to have persistent left flank and abdominal discomfort. Voiding without difficulty, no dysuria or hematuria. Reports nausea, no vomiting. Low appetite. No fever or chills. Review of Systems Constitutional: as per Subjective / HPI Gastrointestinal: as per Subjective / HPI Genitourinary: as per Subjective / HPI Physical Exam Constitutional: + obese; no acute distress and not ill appearing Respiratory: able to speak in complete sentences; no respiratory distress, no labored breathing and no audible wheezes Cardiovascular: Extremities: no pedal edema Gastrointestinal (Abdomen): Inspection/Auscultation: abdomen normal to inspection; abdomen not distended Percussion/Palpation: + abdomen tender (tender to palpation left lower quadrant) and abdomen soft; no guarding Musculoskeletal: Head/Neck/Chest: normocephalic and head atraumatic Skin: scattered ecchymosis on upper extremities Neurologic: moves all extremities and awake Psychiatric: Orientation: alert and oriented x 3 Genitourinary: + CVA tenderness (tender to palpation over left flank/lower back) Results & Data ([facility]) Vital Signs (Past 12 Hours) Vital Signs Temp Pulse Pulse Resp BP BP Pulse Ox 12/02/21 11:17 36.9 C 81 18 124/67 94 12/02/21 10:55 73 12/02/21 07:37 36.9 C 83 18 101/63 97 12/02/21 03:00 37 C 81 18 88/56 L 95 PG Care Time/CCT Total # of Minutes Spent Total Time Spent with Patient: Total time spent is greater than 50% in coordination of care (as documented) at patient's floor/unit and/or counseling patient: Coding Level of Care Code 88262 Subseq Hosp Care Lvl 2 Diagnoses Acute UTI N39.0 Bilateral nephrolithiasis N20.0 S/P ureteral stent placement Z96.0
--- NOTE | 2021-12-02 13:56 | Ultrasound Report ---
RENAL ULTRASOUND CLINICAL HISTORY: Flank pain. COMPARISON STUDY: CT of the abdomen and pelvis November 30, 2021. TECHNIQUE: Sonography of the kidneys and the urinary bladder was performed. FINDINGS: Right kidney measures 11.2 cm in maximal dimension and the left measures 10.2 cm. Left uret eral stent is in place. Mild left hydronephrosis is similar to prior CT of November 30, 2021 when all owing for differences in technique. A few bilateral renal cysts are noted. An 8.6 cm cystic lesion al carmelo the medial aspect of the upper pole of the left kidney is noted. This demonstrated wall thickenin g on CT of November 30, 2021. This is relatively simple appearing by sonography. Bilateral renal calc oralia are noted. Ureteral jets were not visualized. IMPRESSION: 1. Left ureteral stent in place. No significant change in left hydronephrosis since prior CT when all owing for differences in technique. 2. 8.6 cm cystic lesion along the upper pole of the left kidney. Given findings on CT of November 30, 2021, cyst superinfection cannot be excluded although this is relatively simple appearing by sonogra phy. 3. Bilateral nephrolithiasis. ACT 112: Negative or not required by law. Electronically signed by: Abdirashid Motta M.D. 12/02/2021 1:55 PM
[2021-12-02] MEDS ORDERED: diphenhydrAMINE 50 MG/ML VIAL IV PRN (16:32)
[2021-12-02] MEDS: methylPREDNISolone 40 MG in SYRINGE 0 ML IV PRN ×2 (17:13→21:55)
--- NOTE | 2021-12-02 18:05 | Hospitalist Progress Note ---
Date of Service December 02, 2021 Assessment & Plan (1) Acute UTI: Plan: Acute UTI Bilateral nephrolithiasis Left Renal cyst S/p cystoscopy with left ureteroscopy, laser lithotripsy, stone basket extraction, and left stent exchange by urology -CT abd/pelvis showed left ureteral stent in place, left sided nephrolithiasis, no significant change in urothelial thickening within both collecting systems and proximal ureters as well as bladder wall thickening with adjacent infiltration. Urine culture 11/17/21 grew Klebsiella which was pansensitive Repeat Urine culture from 11/26/21 now growing enterococcus Antibiotic changed to vancomycin based on sensitivities --Renal USD:Left ureteral stent in place. No significant change in left hydronephrosis since prior CT when allowing for differences in technique. 8.6 cm cystic lesion along the upper pole of the left kidney. Given findings on CT of November 30, 2021, cyst superinfection cannot be excluded although this is relatively simple appearing by sonography. Bilateral nephrolithiasis. --Continue Flomax, pyridium prn Renal cyst likely contributing to persistent cough symptoms Urology request and CT Abd/Pelvis with IV contrast for further evaluation of renal cyst May need drainage of the cyst Appreciate neurology input PERRI on CKD III: Cr 1.9>>1.15 Received IVF Avoid nephrotoxins as able H/O chronic obstructive pulmonary disease and chronic respiratory failure: On 2L NC Continue home inhalers. DM II: Hemoglobin A1c 6.1 on 10/31 Glipizide on hold Insulin sliding scale per protocol Continue monitor blood sugar H/O colon cancer: S/P laparoscopic colectomy, total proctectomy and ileostomy, and ileoproctostomy in 2010. Morbid obesity: BMI: 40.3 Anemia: Patient's hb is 7.7 Baseline appear to be 8-9 on average in the past 2 months Hb drop likely dilutional Denies any bleeding issues Monitor Hyperlipidemia: Continue statin Hypertension: Continue metoprolol. DVT Px: Heparin SQ Code Status Full Code Admission and Anticipated Discharge Date Admission Date: November 18, 2021 Subjective Patient is seen and examined at bedside States having left flank pain radiating to groin Denies any hematuria, dysuria Also states having nausea but no vomiting Offers no other complaints Discussed with urology today Review of Systems Review of Systems: All systems reviewed & are unremarkable except as noted in Subjective Physical Exam Physical Exam: Physical Exam: Vitals signs as noted above General Appearance:Morbidly Obese, no apparent distress Head: normocephalic, Atraumatic Eyes: normal inspection, EOMI Neck: supple, Trachea midline Respiratory/Chest: Normal breath sounds, CTA, No accessory muscle use Cardiovascular: S1, S2, No murmur Abdomen/GI:Soft, Left Flank tender, Bowel sounds present Extremities/Musculoskeletal:normal inspection, no edema Neurologic/Psych:AAOX3, grossly no focal neurological deficits Skin: normal color, warm Results & Data Results & Data ([facility]) Vital Signs (Past 12 Hours) Vital Signs Temp Pulse Pulse Resp BP Pulse Ox 12/02/21 15:40 36.6 C 89 18 127/71 98 12/02/21 15:07 83 12/02/21 11:17 36.9 C 81 18 124/67 94 12/02/21 10:55 73 12/02/21 07:37 36.9 C 83 18 101/63 97 Laboratory Results Short CBC 12/02/21 Range/Units 06:33 WBC 5.61 (4.8-10.8) K/uL Hgb 7.6 L (12.0-16.0) g/dL Hct 25.3 L (37-47) % Plt Count 344 (130-400) K/uL BMP 12/02/21 06:33 Sodium 139 Potassium 4.0 Chloride 108 H Carbon Dioxide 25 BUN 6 Creatinine 1.15 Glucose 99 Calcium 8.2 L
[2021-12-02] MEDS: NORMOSOL-R 1,000 ML IV SCH (19:14)
[2021-12-02] MEDS: METOPROLOL SUCC 25MG EXT REL TAB PO SCH (20:58)
[2021-12-02] MEDS: CLOPIDOGREL BISULFATE 75 MG TAB PO SCH (20:58)
[2021-12-02] MEDS: ATORVASTATIN 40 MG TAB PO SCH (20:58)
[2021-12-02] MEDS: MAGNESIUM OXIDE 400 MG TAB PO SCH (20:59)
[2021-12-03] MEDS: MoRPHine SULFATE 2 MG/ML CARP IV PRN ×4 (01:19→20:31)
[2021-12-03] MEDS: ACETAMINOPHEN 500 MG TAB PO SCH ×3 (06:32→21:34)
[2021-12-03 07:11] LABS: Creatinine Clr Calc Pharmacy 45.4 ml/min; Est GFR (African American) 56.6 ml/min; Est GFR (Non-African American) 48.9 ml/min
[2021-12-03] MEDS: CHOLECALCIFEROL 1,000 UNITS 25 MCG TAB PO SCH (08:24)
[2021-12-03] MEDS: PANTOprazole 40 MG TAB PO SCH ×2 (08:24→20:39)
[2021-12-03] MEDS: TAMSULOSIN HCL 0.4 MG CAP PO SCH (08:24)
[2021-12-03] MEDS: OXcarbazepine 150 MG TABLET PO SCH ×2 (08:24→20:39)
[2021-12-03] MEDS: METOPROLOL SUCC 50MG EXT REL TAB PO SCH (08:24)
[2021-12-03] MEDS: LIDOCAINE 5% 1 PATCH TD SCH ×2 (08:26)
[2021-12-03] MEDS: OXYBUTYNIN CHLORIDE 5 MG TAB PO SCH (08:26)
[2021-12-03] MEDS: HEPARIN SOD 5,000 UNIT/0.5 ML VIAL SQ SCH ×2 (08:27→20:37)
[2021-12-03] MEDS: INSULIN ASPART PER UNIT SC SCH ×4 (08:27→21:29)
[2021-12-03] MEDS: VANCOMYCIN HCL 1,250 MG in SODIUM CHLORIDE 0.9% 250 ML IV SCH (12:28)
[2021-12-03] MEDS ORDERED: VANCOMYCIN TROUGH ONE (12:30)
--- NOTE | 2021-12-03 14:35 | Communication Note ---
Date of Service: December 03, 2021 Follow-up regarding imaging and plan of care - reviewed with Dr. Adam. Patient did not have CT abd/pelvis w/ IV con as ordered. She was initially agreeable to contrasted imaging with premedication protocol, but then eventually declined. Patient's case was discussed with attending hospitalist Dr. Turner. A contrasted study would be more definitive in characterizing left renal cyst present since 2010. If infected cyst/abscess is suspected, then it meets size criteria for drainage which would require IR at tertiary center. Cyst is located in challenging area due to proximity to renal vasculature. Otherwise can treat with antibiotics. Defer to ID regarding antibiotic management and duration. Patient will follow-up with our service outpatient for stent removal. Continue supportive care and management per hospital medicine service. Please contact urology with any further issues/concerns.
--- NOTE | 2021-12-03 17:14 | Hospitalist Progress Note ---
Date of Service December 03, 2021 Assessment & Plan (1) Acute UTI: Plan: Acute UTI Bilateral nephrolithiasis Left Renal cyst, suspected infected renal cyst/abscess S/p cystoscopy with left ureteroscopy, laser lithotripsy, stone basket extraction, and left stent exchange by urology -CT abd/pelvis showed left ureteral stent in place, left sided nephrolithiasis, no significant change in urothelial thickening within both collecting systems and proximal ureters as well as bladder wall thickening with adjacent infiltration. Urine culture 11/17/21 grew Klebsiella which was pansensitive Repeat Urine culture from 11/26/21 now growing enterococcus Antibiotic changed to vancomycin based on sensitivities --Renal USD:Left ureteral stent in place. No significant change in left hydronephrosis since prior CT when allowing for differences in technique. 8.6 cm cystic lesion along the upper pole of the left kidney. Given findings on CT of November 30, 2021, cyst superinfection cannot be excluded although this is relatively simple appearing by sonography. Bilateral nephrolithiasis. --Continue Flomax, Pyridium prn Renal cyst likely contributing to persistent cough symptoms Urology request and CT Abd/Pelvis with IV contrast for further evaluation of renal cyst Patient refused IV contrast given history of contrast allergy despite giving premedications for contrast May need drainage of the cyst by IR at tertiary center. Due to close proximity of the cyst to renal vasculature, drainage could be challenging Appreciate Urology input Consulted ID for recommendations on antibiotics Needs follow-up with urology upon discharge for stent removal PERRI on CKD III: Cr 1.9>>1.15 Received IVF Avoid nephrotoxins as able H/O chronic obstructive pulmonary disease and chronic respiratory failure: On 2L NC Continue home inhalers. DM II: Hemoglobin A1c 6.1 on 10/31 Glipizide on hold Insulin sliding scale per protocol Continue monitor blood sugar H/O colon cancer: S/P laparoscopic colectomy, total proctectomy and ileostomy, and ileoproctostomy in 2010. Morbid obesity: BMI: 40.3 Anemia: Patient's hb is 7.7 Baseline appear to be 8-9 on average in the past 2 months Hb drop likely dilutional Denies any bleeding issues Monitor Hyperlipidemia: Continue statin Hypertension: Continue metoprolol. DVT Px: Heparin SQ Code Status Full Code Admission and Anticipated Discharge Date Admission Date: November 18, 2021 Subjective Patient is seen and examined at bedside Continues to have left flank pain radiating to groin Discussed with urology today Denies any hematuria, dysuria, chest pain, shortness of breath, nausea, vomiting Review of Systems Review of Systems: All systems reviewed & are unremarkable except as noted in Subjective Physical Exam Physical Exam: Physical Exam: Vitals signs as noted above General Appearance:Morbidly Obese, no apparent distress Head: normocephalic, Atraumatic Eyes: normal inspection, EOMI Neck: supple, Trachea midline Respiratory/Chest: Normal breath sounds, CTA, No accessory muscle use Cardiovascular: S1, S2, No murmur Abdomen/GI:Soft, Left Flank tender, Bowel sounds present Extremities/Musculoskeletal:normal inspection, no edema Neurologic/Psych:AAOX3, grossly no focal neurological deficits Skin: normal color, warm Results & Data Results & Data ([facility]) Vital Signs (Past 12 Hours) Vital Signs Temp Pulse Pulse Resp BP Pulse Ox 12/03/21 15:12 84 12/03/21 11:37 36.5 C 71 20 106/67 96 12/03/21 08:01 64 12/03/21 06:55 36.5 C 77 18 129/69 94 Laboratory Results [facility] 12/03/21 06:14 Creatinine 1.15
[2021-12-03] MEDS: CLOPIDOGREL BISULFATE 75 MG TAB PO SCH (20:37)
[2021-12-03] MEDS: ATORVASTATIN 40 MG TAB PO SCH (20:37)
[2021-12-03] MEDS: MAGNESIUM OXIDE 400 MG TAB PO SCH (20:38)
[2021-12-03] MEDS: METOPROLOL SUCC 25MG EXT REL TAB PO SCH (20:38)
[2021-12-03] MEDS: ONDANSETRON INJ 2 MG/ML 2 ML VIAL IV PRN (22:29)
[2021-12-04] MEDS: MoRPHine SULFATE 2 MG/ML CARP IV PRN ×4 (01:33→19:38)
[2021-12-04] MEDS: ACETAMINOPHEN 500 MG TAB PO SCH ×3 (05:38→21:32)
[2021-12-04] MEDS: ONDANSETRON INJ 2 MG/ML 2 ML VIAL IV PRN ×3 (06:24→19:38)
[2021-12-04 08:01] LABS: Hematocrit (blood only) 27.6 % (37-47); Hemoglobin 8.4 g/dL (12.0-16.0)
[2021-12-04 08:22] LABS: BUN Creatinine Ratio 7.9 (10-20); Calcium 8.8 mg/dl (8.5-10.1); Creatinine Clr Calc Pharmacy 41.1 ml/min; Est GFR (African American) 50.2 ml/min; Est GFR (Non-African American) 43.3 ml/min; Potassium 3.9 mmol/L (3.5-5.1)
[2021-12-04] MEDS: LIDOCAINE 5% 1 PATCH TD SCH ×2 (08:23→08:24)
[2021-12-04] MEDS: OXcarbazepine 150 MG TABLET PO SCH ×2 (08:23→20:36)
[2021-12-04] MEDS: PANTOprazole 40 MG TAB PO SCH ×2 (08:23→20:36)
[2021-12-04] MEDS: CHOLECALCIFEROL 1,000 UNITS 25 MCG TAB PO SCH (08:24)
[2021-12-04] MEDS: METOPROLOL SUCC 50MG EXT REL TAB PO SCH (08:24)
[2021-12-04] MEDS: TAMSULOSIN HCL 0.4 MG CAP PO SCH (08:24)
[2021-12-04] MEDS: HEPARIN SOD 5,000 UNIT/0.5 ML VIAL SQ SCH ×2 (08:25→20:38)
[2021-12-04] MEDS: INSULIN ASPART PER UNIT SC SCH ×4 (08:28→20:38)
[2021-12-04] MEDS: VANCOMYCIN HCL 1,250 MG in SODIUM CHLORIDE 0.9% 250 ML IV SCH (12:27)
--- NOTE | 2021-12-04 17:35 | Hospitalist Progress Note ---
Date of Service December 04, 2021 Assessment & Plan (1) Acute UTI: Plan: Acute UTI Bilateral nephrolithiasis Left Renal cyst, suspected infected renal cyst/abscess S/p cystoscopy with left ureteroscopy, laser lithotripsy, stone basket extraction, and left stent exchange by urology -CT abd/pelvis showed left ureteral stent in place, left sided nephrolithiasis, no significant change in urothelial thickening within both collecting systems and proximal ureters as well as bladder wall thickening with adjacent infiltration. Urine culture 11/17/21 grew Klebsiella which was pansensitive Repeat Urine culture from 11/26/21 now growing enterococcus --Renal USD:Left ureteral stent in place. No significant change in left hydronephrosis since prior CT when allowing for differences in technique. 8.6 cm cystic lesion along the upper pole of the left kidney. Given findings on CT of November 30, 2021, cyst superinfection cannot be excluded although this is relatively simple appearing by sonography. Bilateral nephrolithiasis. --Continue Flomax, Pyridium prn Renal cyst likely contributing to persistent cough symptoms Urology request and CT Abd/Pelvis with IV contrast for further evaluation of renal cyst Patient refused IV contrast given history of contrast allergy despite giving premedications for contrast May need drainage of the cyst by IR at tertiary center. Due to close proximity of the cyst to renal vasculature, drainage could be challenging Appreciate Urology input Appreciate ID Input Needs follow-up with urology upon discharge for stent removal Started on Rocephin as recommended by ID Continue vancomycin PERRI on CKD III: Cr 1.9>>1.15>1.27 Received IVF Avoid nephrotoxins as able H/O chronic obstructive pulmonary disease and chronic respiratory failure: On 2L NC Continue home inhalers. DM II: Hemoglobin A1c 6.1 on 10/31 Glipizide on hold Insulin sliding scale per protocol Continue monitor blood sugar H/O colon cancer: S/P laparoscopic colectomy, total proctectomy and ileostomy, and ileoproctostomy in 2010. Morbid obesity: BMI: 40.3 Anemia: Hb 8.4 Baseline appear to be 8-9 on average in the past 2 months Hb drop likely dilutional Denies any bleeding issues Monitor Hyperlipidemia: Continue statin Hypertension: Continue metoprolol. DVT Px: Heparin SQ Code Status Full Code Admission and Anticipated Discharge Date Admission Date: November 18, 2021 Subjective Patient is seen and examined at bedside Clinically no significant change from yesterday Reviewed ID recommendations Patient reports left flank pain Denies any hematuria, dysuria, chest pain, shortness of breath, nausea, vomiting Review of Systems Review of Systems: All systems reviewed & are unremarkable except as noted in Subjective Physical Exam Physical Exam: Physical Exam: Vitals signs as noted above General Appearance:Morbidly Obese, no apparent distress Head: normocephalic, Atraumatic Eyes: normal inspection, EOMI Neck: supple, Trachea midline Respiratory/Chest: Normal breath sounds, CTA, No accessory muscle use Cardiovascular: S1, S2, No murmur Abdomen/GI:Soft, Left Flank tender, Bowel sounds present Extremities/Musculoskeletal:normal inspection, no edema Neurologic/Psych:AAOX3, grossly no focal neurological deficits Skin: normal color, warm Results & Data Results & Data ([facility]) Vital Signs (Past 12 Hours) Vital Signs Temp Pulse Pulse Resp BP BP Pulse Ox 12/04/21 16:00 71 12/04/21 15:07 37.0 C 100 H 20 126/74 96 12/04/21 11:34 36.8 C 85 18 101/67 97 12/04/21 07:00 36.6 C 81 20 110/73 94 Laboratory Results Short CBC 12/04/21 Range/Units 07:22 Hgb 8.4 L (12.0-16.0) g/dL Hct 27.6 L (37-47) % BMP 12/04/21 07:22 Sodium 138 Potassium 3.9 Chloride 105 Carbon Dioxide 26 BUN 10 Creatinine 1.27 H Glucose 98 Calcium 8.8
[2021-12-04] MEDS ORDERED: cefTRIAXone SODIUM 2,000 MG in DEXTROSE 5% 50 ML IV SCH (18:00)
[2021-12-04] MEDS: METOPROLOL SUCC 25MG EXT REL TAB PO SCH (20:35)
[2021-12-04] MEDS: MAGNESIUM OXIDE 400 MG TAB PO SCH (20:36)
[2021-12-04] MEDS: CLOPIDOGREL BISULFATE 75 MG TAB PO SCH (20:37)
[2021-12-04] MEDS: ATORVASTATIN 40 MG TAB PO SCH (20:37)
[2021-12-05] MEDS: MoRPHine SULFATE 2 MG/ML CARP IV PRN ×4 (02:49→18:15)
[2021-12-05] MEDS: ACETAMINOPHEN 500 MG TAB PO SCH ×3 (06:20→21:03)
[2021-12-05 06:23] LABS: Hematocrit (blood only) 26.7 % (37-47)
[2021-12-05 06:52] LABS: BUN Creatinine Ratio 7.2 (10-20); Calcium 8.2 mg/dl (8.5-10.1); Creatinine Clr Calc Pharmacy 41.5 ml/min; Est GFR (African American) 51.2 ml/min; Est GFR (Non-African American) 44.2 ml/min; Potassium 4.5 mmol/L (3.5-5.1)
[2021-12-05] MEDS: ONDANSETRON INJ 2 MG/ML 2 ML VIAL IV PRN (08:12)
[2021-12-05] MEDS: LIDOCAINE 5% 1 PATCH TD SCH ×2 (09:17)
[2021-12-05] MEDS: HEPARIN SOD 5,000 UNIT/0.5 ML VIAL SQ SCH ×2 (09:49→20:07)
[2021-12-05] MEDS: OXcarbazepine 150 MG TABLET PO SCH ×2 (09:49→20:07)
[2021-12-05] MEDS: CHOLECALCIFEROL 1,000 UNITS 25 MCG TAB PO SCH (09:49)
[2021-12-05] MEDS: TAMSULOSIN HCL 0.4 MG CAP PO SCH (09:49)
[2021-12-05] MEDS: PANTOprazole 40 MG TAB PO SCH ×2 (09:50→20:07)
[2021-12-05] MEDS: METOPROLOL SUCC 50MG EXT REL TAB PO SCH (09:50)
[2021-12-05] MEDS: INSULIN ASPART PER UNIT SC SCH ×4 (09:54→20:06)
[2021-12-05] MEDS: cefTRIAXone SODIUM 2,000 MG in DEXTROSE 5% 50 ML IV SCH (09:55)
[2021-12-05] MEDS ORDERED: methylPREDNISolone 40 MG in SYRINGE 0 ML IV ONE ×2 (11:32→15:45)
[2021-12-05] MEDS: PROMETHAZINE HCL 12.5 MG in SODIUM CHLORIDE 0.9% 50 ML IV PRN (13:39)
--- NOTE | 2021-12-05 15:23 | Hospitalist Progress Note ---
Date of Service December 05, 2021 Assessment & Plan (1) Acute UTI: Plan: Acute UTI Bilateral nephrolithiasis Left Renal cyst, suspected infected renal cyst/abscess S/p cystoscopy with left ureteroscopy, laser lithotripsy, stone basket extraction, and left stent exchange by urology -CT abd/pelvis showed left ureteral stent in place, left sided nephrolithiasis, no significant change in urothelial thickening within both collecting systems and proximal ureters as well as bladder wall thickening with adjacent infiltration. Urine culture 11/17/21 grew Klebsiella which was pansensitive Repeat Urine culture from 11/26/21 now growing enterococcus --Renal USD:Left ureteral stent in place. No significant change in left hydronephrosis since prior CT when allowing for differences in technique. 8.6 cm cystic lesion along the upper pole of the left kidney. Given findings on CT of November 30, 2021, cyst superinfection cannot be excluded although this is relatively simple appearing by sonography. Bilateral nephrolithiasis. --Continue Flomax, Pyridium prn Renal cyst likely contributing to persistent cough symptoms Urology request and CT Abd/Pelvis with IV contrast for further evaluation of renal cyst Patient initially refused to get CT abdomen with contrast May need drainage of the cyst by IR at tertiary center. Due to close proximity of the cyst to renal vasculature, drainage could be challenging Appreciate Urology input Appreciate ID Input Needs follow-up with urology upon discharge for stent removal Started on Rocephin as recommended by ID Continue vancomycin Patient agrees to get CT abd with contrast Will premedicate for IV contrast with Solumedrol and Benadryl Further management based on CT results PERRI on CKD III: Cr 1.9>>1.15>1.2 Received IVF Avoid nephrotoxins as able H/O chronic obstructive pulmonary disease and chronic respiratory failure: On 2L NC Continue home inhalers. DM II: Hemoglobin A1c 6.1 on 10/31 Glipizide on hold Insulin sliding scale per protocol Continue monitor blood sugar H/O colon cancer: S/P laparoscopic colectomy, total proctectomy and ileostomy, and ileoproctostomy in 2010. Morbid obesity: BMI: 40.3 Anemia: Hb ~ 8 Baseline appear to be 8-9 on average in the past 2 months Hb drop likely dilutional Denies any bleeding issues Monitor Hyperlipidemia: Continue statin Hypertension: Continue metoprolol. DVT Px: Heparin SQ Code Status Full Code Admission and Anticipated Discharge Date Admission Date: November 18, 2021 Subjective Patient is seen and examined at bedside No new complaints Reports left flank pain radiating to groin Agrees to get CT abdomen today Denies any hematuria, dysuria, chest pain, shortness of breath, nausea, vomiting Review of Systems Review of Systems: All systems reviewed & are unremarkable except as noted in Subjective Physical Exam Physical Exam: Physical Exam: Vitals signs as noted above General Appearance:Morbidly Obese, no apparent distress Head: normocephalic, Atraumatic Eyes: normal inspection, EOMI Neck: supple, Trachea midline Respiratory/Chest: Normal breath sounds, CTA, No accessory muscle use Cardiovascular: S1, S2, No murmur Abdomen/GI:Soft, Left Flank tender, Bowel sounds present Extremities/Musculoskeletal:normal inspection, no edema Neurologic/Psych:AAOX3, grossly no focal neurological deficits Skin: normal color, warm Results & Data Results & Data ([facility]) Vital Signs (Past 12 Hours) Vital Signs Temp Pulse Pulse Pulse Resp BP Pulse Ox 12/05/21 11:00 36.9 C 73 20 127/76 100 12/05/21 07:38 36.8 C 84 20 107/69 99 12/05/21 07:00 69 12/05/21 04:01 36.9 C 80 16 105/66 98 Laboratory Results Short CBC 12/05/21 Range/Units 05:57 Hgb 8.0 L (12.0-16.0) g/dL Hct 26.7 L (37-47) % BMP 12/05/21 05:57 Sodium 140 Potassium 4.5 Chloride 107 Carbon Dioxide 28 BUN 9 Creatinine 1.25 H Glucose 98 Calcium 8.2 L
[2021-12-05] MEDS ORDERED: diphenhydrAMINE 50 MG/ML VIAL IV ONE (15:45)
[2021-12-05] MEDS ORDERED: LORazepam 2 MG/1 ML VIAL IV ONE (16:00)
[2021-12-05] MEDS ORDERED: OPTIRAY 320 100ml IV ONE (17:00)
--- NOTE | 2021-12-05 17:48 | CT Scan Report ---
CT OF THE ABDOMEN AND PELVIS WITH CONTRAST CLINICAL HISTORY: Left renal cyst. Rule out abscess. COMPARISON STUDY: CT of the abdomen and pelvis November 30, 2021. Renal ultrasound December 02, 2021 . TECHNIQUE: Following IV administration of 94 mL of Optiray, axial images of the abdomen and pelvis we re obtained from the lung bases to the proximal femurs. Images were reviewed in the axial, sagittal, and coronal planes. IV contrast was administered without complication. Automated exposure control wa s utilized for the study. A dose lowering technique was utilized adhering to the principles of ALARA . CT DOSE: 859.54 mGy.cm FINDINGS: A trace left pleural effusion is noted. Moderate sized hiatal hernia is present. No pneumat osis, free air or portal venous gas is present. There is no biliary ductal dilatation status post cho lecystectomy. No hepatic lesions are present. Size of the spleen is at the upper limits of normal. Ad renal glands and pancreas are unremarkable. There is no peripancreatic infiltration. There is no evid ence for a bowel obstruction. Postoperative findings consistent with subtotal colectomy are noted. Left ureteral stent remains in place. Dilatation of the left renal pelvis is similar to prior exam. N o ureteral calculi are present. Bilateral renal calculi are again noted. The largest is a 9 mm left l ower pole calculus. Bilateral urothelial thickening within the collecting systems and ureters is agai n noted. This was shown on several prior exams. Bladder wall thickening with adjacent infiltration is also unchanged. Innumerable low-attenuation right renal lesions are present. These are too small to characterize. There is marked left renal atrophy and moderate right renal atrophy. A 7.3 x 5.2 cm cys t within the upper pole of the left kidney is again noted. This has been present on studies dating ba to 2010. However, the wall is now thickened and enhancing. IMPRESSION: 1. 7.3 cm cyst within the upper pole of the left kidney. This cyst has been present dating back to 29 08. However, the wall is now thickened and enhancing. Stranding is centered within the left renal sin us rather than on the cyst. Superimposed infection cannot be excluded. 2. Left ureteral stent in place. No change in dilatation of the left renal pelvis. No ureteral calcul i. 3. Redemonstration of urothelial thickening of the bilateral collecting systems and ureters which cou ld be correlated with urinalysis. Bladder wall thickening which is also unchanged. 4. Bilateral nephrolithiasis. ACT 112: Negative or not required by law. Electronically signed by: Abdirashid Motta M.D. 12/05/2021 5:47 PM
[2021-12-05] MEDS: METOPROLOL SUCC 25MG EXT REL TAB PO SCH (20:07)
[2021-12-05] MEDS: MAGNESIUM OXIDE 400 MG TAB PO SCH (20:07)
[2021-12-05] MEDS: ATORVASTATIN 40 MG TAB PO SCH (20:07)
[2021-12-05] MEDS: CLOPIDOGREL BISULFATE 75 MG TAB PO SCH (20:07)
[2021-12-06] MEDS: ONDANSETRON INJ 2 MG/ML 2 ML VIAL IV PRN (05:11)
[2021-12-06] MEDS: MoRPHine SULFATE 2 MG/ML CARP IV PRN ×4 (05:11→17:58)
[2021-12-06] MEDS: ACETAMINOPHEN 500 MG TAB PO SCH ×2 (05:28→13:52)
[2021-12-06] MEDS: OXcarbazepine 150 MG TABLET PO SCH ×2 (08:38→19:56)
[2021-12-06] MEDS: TAMSULOSIN HCL 0.4 MG CAP PO SCH (08:39)
[2021-12-06] MEDS: METOPROLOL SUCC 50MG EXT REL TAB PO SCH (08:39)
[2021-12-06] MEDS: PANTOprazole 40 MG TAB PO SCH ×2 (08:39→19:55)
[2021-12-06] MEDS: CHOLECALCIFEROL 1,000 UNITS 25 MCG TAB PO SCH (08:40)
[2021-12-06 08:41] LABS: Hematocrit (blood only) 26.1 % (37-47); Hemoglobin 7.8 g/dL (12.0-16.0)
[2021-12-06] MEDS: HEPARIN SOD 5,000 UNIT/0.5 ML VIAL SQ SCH ×2 (08:41→19:56)
[2021-12-06] MEDS: LIDOCAINE 5% 1 PATCH TD SCH ×2 (08:42→08:43)
[2021-12-06] MEDS: INSULIN ASPART PER UNIT SC SCH ×4 (08:54→19:56)
[2021-12-06] MEDS: cefTRIAXone SODIUM 2,000 MG in DEXTROSE 5% 50 ML IV SCH (08:55)
[2021-12-06 09:15] LABS: BUN Creatinine Ratio 8.5 (10-20); Calcium 8.3 mg/dl (8.5-10.1); Est GFR (African American) 49.3 ml/min; Est GFR (Non-African American) 42.5 ml/min; Potassium 3.8 mmol/L (3.5-5.1)
--- NOTE | 2021-12-06 09:43 | Urology Progress Note ---
Date of Service December 06, 2021 Assessment & Plan (1) Acute UTI: (2) Bilateral nephrolithiasis: (3) Infected kidney cyst: Plan: Patient continues to have issues with flank pain discomfort and ill feelings. Has had multiple severe episodes of pyelonephritis septicemia and sepsis. Patient has ongoing issues with stone disease. Had been treated for stone. Developed ill feelings. Patient has a known renal cyst which had been imaged initially in 2010. Concern was for possible development of abscess/infected cyst. Patient had undergone imaging. This was reviewed interpreted by myself. Significant signs of increasing issues very concerning for developing abscess within the infected cyst. Reviewed different options with patient and hospitalist team. For smaller infected lesions longer courses of antibiotics can usually be helpful however with the significant size over 7 cm as well as the location likely will need to consider percutaneous drainage. We will likely still need continued antibiotics. Due to the location over the hilar vessels as well as the upper pole location and proximity to spleen and ribs access to the infected cyst will likely be difficult even with its large size. Major risk is related to the location near the vessels. Patient stent does appear to be in good position. Will likely maintain this. If patient needs to move forward with percutaneous drain would recommend a large tertiary center with dedicated IR due to the complexity of the infected cyst/abscess location. Admission and Anticipated Discharge Date Admission Date: November 18, 2021 Subjective Well-known patient. Admitted with significant pyelonephritis and ongoing pain issues. Has long history of stones. Has had multiple severe pyelonephritis episodes with sepsis and septicemia. Postop from stone treatment and stent placement for obstruction issues. Patient has been tolerating stent well. Has had significant ongoing flank pain and abdominal pain with ill feelings however. Patient has a well known cyst. Has been size josé stable since 2010 in the perihilar region. Concerned that possible development of abscess/infected cyst with the recurrent episodes of pyelonephritis. Has continued frequency and urgency. Does have occasional significant episodes of severe pain in the back and flank. Does have occasional burning and irritation. No severe episodes or major changes in blood work or concern for bleed. No new nausea or vomiting. Review of Systems Review of Systems: All systems reviewed & are unremarkable except as noted in HPI & below Physical Exam Physical Exam: General: Alert in no acute distress. Obese. HEENT: Normocephalic Atraumatic. Inspection normal. Cranial Nerves 2-12 Grossly intact. Normal inspection of face. Normal inspection of neck. Psychologic: Normal affect. Respiratory: Nonlabored. No use of accessory muscles. No tachypnea or dyspnea. Cardiovascular: No tachycardia Skin: Reed and Dry. No rashes or visible lesions. Abdomen: No rebound or guarding. Results & Data ([facility]) Vital Signs (Past 12 Hours) Vital Signs Temp Pulse Pulse Resp BP Pulse Ox 12/06/21 07:13 66 12/06/21 07:00 37.0 C 69 20 133/76 98 12/06/21 03:14 36.9 C 95 H 22 152/69 H 95 12/05/21 22:33 36.9 C 85 18 115/74 96 12/05/21 22:19 70 PG Care Time/CCT Total # of Minutes Spent Total Time Spent with Patient: Total time spent is greater than 50% in coordination of care (as documented) at patient's floor/unit and/or counseling patient: Coding Level of Care Code 98503 Subseq Hosp Care Lvl 3 Diagnoses Acute UTI N39.0 Bilateral nephrolithiasis N20.0 Infected kidney cyst N28.1
--- NOTE | 2021-12-06 12:40 | Hospitalist Progress Note ---
Date of Service December 06, 2021 Assessment & Plan (1) Acute UTI: Plan: Acute Complicated UTI Bilateral nephrolithiasis Left Renal cyst, suspected infected renal cyst/abscess H/O multiple episodes of pyelonephritis S/p cystoscopy with left ureteroscopy, laser lithotripsy, stone basket extraction, and left stent exchange by urology -CT abd/pelvis showed left ureteral stent in place, left sided nephrolithiasis, no significant change in urothelial thickening within both collecting systems and proximal ureters as well as bladder wall thickening with adjacent infiltration. Urine culture 11/17/21 grew Klebsiella which was pansensitive Repeat Urine culture from 11/26/21 now growing enterococcus --Renal USD:Left ureteral stent in place. No significant change in left hydronephrosis since prior CT when allowing for differences in technique. 8.6 cm cystic lesion along the upper pole of the left kidney. Given findings on CT of November 30, 2021, cyst superinfection cannot be excluded although this is relatively simple appearing by sonography. Bilateral nephrolithiasis. --Continue Flomax, Pyridium prn Renal cyst likely contributing to persistent symptoms --ABD CT with contrast showed:.7.3 cm cyst within the upper pole of the left kidney. This cyst has been present dating back to 2010. However, the wall is now thickened and enhancing. Stranding is centered within the left renal sinus rather than on the cyst. Superimposed infection cannot be excluded. Left ureteral stent in place. No change in dilatation of the left renal pelvis. No ureteral calculi. Redemonstration of urothelial thickening of the bilateral co llecting systems and ureters which could be correlated with urinalysis. Bladder wall thickening which is also unchanged. Bilateral nephrolithiasis. --Need drainage of the cyst by IR at tertiary center. Due to close proximity of the cyst to renal vasculature, drainage could be challenging Appreciate Urology input Appreciate ID Input Needs follow-up with urology upon discharge for stent removal Completed 10 day course of IV Cefepime Received vancomycin for 7 days Continue IV Rocephin Day #2 Plan to transfer to Tertiary center if accepted . Patient agrees with plan. PERRI on CKD III: Cr 1.9>>1.15>1.2 Received IVF Avoid nephrotoxins as able H/O chronic obstructive pulmonary disease and chronic respiratory failure: On 2L NC Continue home inhalers. DM II: Hemoglobin A1c 6.1 on 10/31 Glipizide on hold Insulin sliding scale per protocol Continue monitor blood sugar H/O colon cancer: S/P laparoscopic colectomy, total proctectomy and ileostomy, and ileoproctostomy in 2011. Morbid obesity: BMI: 40.3 Anemia: Hb ~ 8 Baseline appear to be 8-9 on average in the past 2 months Hb drop likely dilutional Denies any bleeding issues Monitor Hyperlipidemia: Continue statin Hypertension: Continue metoprolol. DVT Px: Heparin SQ Code Status Full Code Admission and Anticipated Discharge Date Admission Date: November 18, 2021 Subjective Patient is seen and examined at bedside Discussed with Urology today Continues to have left flank pain radiating to groin Reviewed CT findings with patient and Urology Denies any hematuria, dysuria, chest pain, shortness of breath, nausea, vomiting Plan to discharge to tertiary hospital if accepted Review of Systems Review of Systems: All systems reviewed & are unremarkable except as noted in Subjective Physical Exam Physical Exam: Physical Exam: Vitals signs as noted above General Appearance:Morbidly Obese, no apparent distress Head: normocephalic, Atraumatic Eyes: normal inspection, EOMI Neck: supple, Trachea midline Respiratory/Chest: Normal breath sounds, CTA, No accessory muscle use Cardiovascular: S1, S2, No murmur Abdomen/GI:Soft, Left Flank tender, Bowel sounds present Extremities/Musculoskeletal:normal inspection, no edema Neurologic/Psych:AAOX3, grossly no focal neurological deficits Skin: normal color, warm Results & Data Results & Data ([facility]) Vital Signs (Past 12 Hours) Vital Signs Temp Pulse Pulse Resp BP Pulse Ox 12/06/21 11:00 36.8 C 79 20 116/75 96 12/06/21 07:13 66 12/06/21 07:00 37.0 C 69 20 133/76 98 12/06/21 03:14 36.9 C 95 H 22 152/69 H 95 Laboratory Results Short CBC 12/06/21 Range/Units 08:01 Hgb 7.8 L (12.0-16.0) g/dL Hct 26.1 L (37-47) % BMP 12/06/21 08:01 Sodium 139 Potassium 3.8 Chloride 106 Carbon Dioxide 28 BUN 11 Creatinine 1.29 H Glucose 102 H Calcium 8.3 L
--- NOTE | 2021-12-06 14:37 | Discharge Summary ---
Date of Service December 06, 2021 Admission HPI Per Admitting Provider CHIEF COMPLAINT: Left-sided abdominal pain and back pain. HISTORY OF PRESENT ILLNESS: This is a 66-year-old female with past medical history significant for type 2 diabetes, COPD, chronic kidney disease stage III, hypertension, bipolar disorder, chronic respiratory failure - on home oxygen 2 liters, history of laparoscopic colectomy total with proctectomy and ileostomy and ileoproctostomy in 2010 for colon cancer, recent admission for obstructive pyelonephritis, status post cystoscopy and left ureter stent placement on 10/12/2021, treated with antibiotics, but during hospitalization, she developed respiratory acidosis, transferred to ICU, was intubated. She underwent a bronchoscopy and the patient was extubated and she was doing fine. Her creatinine worsened at 3.1, improved to 1.7. She was discharged home and again she came back to the hospital on 10/30/2021 with not feeling well and found to have COVID pneumonia and completed a 10-day course of Decadron. Respiratory status improved significantly and she was also treated again for UTI with 5 days of cefepime and transitioned to cefdinir. She had diarrhea during hospitalization. Stool for C. diff was negative and she also had hematochezia. GI was consulted. No plans for EGD or colonoscopy at that point and the patient did fine and discharged back home on 11/09/2021, but the patient states since going home, again she is not doing well. She is still not eating much or drinking much, not ambulating much and the patient had developed again left- sided abdominal pain and flank pain and she came to the ER. She had again white count of 12.2. Urinalysis was positive. Venous blood gas showed VpH of 7.31, Creatinine was 1.9, baseline creatinine 1.5. CT of abdomen and pelvis was ordered and the preliminary report shows bilateral pulmonary nodules. Currently, hemodynamically stable. The patient denies any chest pain, no nausea, no vomiting. Denies any diarrhea or constipation. She has burning micturition. Has some headache. No runny nose, no sore throat. Admission Exam Per Admitting Provider PHYSICAL EXAMINATION: GENERAL: The patient is morbidly obese, not in acute distress. VITAL SIGNS: Temperature 36.7, pulse 90, respiratory rate 18, blood pressure 98/74, oxygen 100% on 2 liters. HEENT: Pupils equal, round and reactive to light. Oral mucosa moist. NECK: No JVD. No neck masses. CARDIOVASCULAR: S1 and S2 heard. Regular rate and rhythm. No murmur, no gallop. RESPIRATORY SYSTEM: Normal AP diameter. No accessory muscle use. No wheezing, no crackles. ABDOMEN: Soft, bowel sounds present. Left-sided abdominal tenderness present. No guarding, no rigidity, no distention. CENTRAL NERVOUS SYSTEM: Cranial nerves II-XII grossly intact, nonfocal. EXTREMITIES: Mild pedal edema present, no erythema seen. Principal Diagnosis Acute Complicated UTI Bilateral nephrolithiasis Left Renal cyst, suspected infected renal cyst/abscess Acute Kidney Injury Discharge Data Allergies Allergy/AdvReac Type Severity Reaction Status Date / Time fentanyl Allergy Severe itching/felt Verified 11/17/21 20:25 like throat closing salicylates Allergy Severe SHORTNESS Verified 11/17/21 20:25 OF BREATH Iodinated Contrast Media Allergy Intermediate EYES Verified 11/17/21 20:25 SWELLING/Hives amoxicillin [From Augmentin] Allergy Mild Rash Verified 11/17/21 20:25 aspirin Allergy Mild FACIAL Verified 11/17/21 20:25 SWELLING clavulanic acid Allergy Mild Rash Verified 11/17/21 20:25 [From Augmentin] hydromorphone Allergy Mild RASH/ITCHIN Verified 11/17/21 20:25 G meperidine AdvReac Intermediate ITCH Verified 11/17/21 20:25 morphine AdvReac Intermediate ITCH Verified 11/17/21 20:25 tramadol AdvReac Mild itch Verified 11/17/21 20:25 Consultations 11/18/21 08:00 Consult Urology Routine 11/25/21 08:23 Consult Nephrology Routine 12/03/21 12:11 Consult Infectious Diseases Routine 12/06/21 13:53 Burn CD for patient Routine Procedures Performed Operation Date: 11/23/21 08:50 Actual Procedures p Left Retrograde Pyelogram Ureteroscopy Laser Lithotropsy Stone Treatment(Left) - DO aniya Quarles Left Stent Exchange,(Left) - DO aniya Quarles Cystoscopy(Not Applicable) - Rajan Adam DO Ordered Studies 11/17/21 20:47 CT abd pelvis wo con Urgent 11/23/21 12:00 FL retrograde includes kub Routine 11/25/21 15:17 CT abdomen wo con Urgent 11/30/21 10:34 CT abd pelvis wo con Urgent 12/02/21 12:13 US renal/blad retro comp Routine 12/05/21 16:30 CT abd pelvis IV con only Urgent Hospital Course (1) Acute UTI: Acute Complicated UTI Bilateral nephrolithiasis Left Renal cyst, suspected infected renal cyst/abscess H/O multiple episodes of pyelonephritis S/p cystoscopy with left ureteroscopy, laser lithotripsy, stone basket extraction, and left stent exchange by urology -CT abd/pelvis showed left ureteral stent in place, left sided nephrolithiasis, no significant change in urothelial thickening within both collecting systems and proximal ureters as well as bladder wall thickening with adjacent infiltration. Urine culture 11/17/21 grew Klebsiella which was pansensitive Repeat Urine culture from 11/26/21 now growing enterococcus --Renal USD:Left ureteral stent in place. No significant change in left hydronephrosis since prior CT when allowing for differences in technique. 8.6 cm cystic lesion along the upper pole of the left kidney. Given findings on CT of November 30, 2021, cyst superinfection cannot be excluded although this is relatively simple appearing by sonography. Bilateral nephrolithiasis. --Continue Flomax, Pyridium prn Renal cyst likely contributing to persistent symptoms --ABD CT with contrast showed:.7.3 cm cyst within the upper pole of the left kidney. This cyst has been present dating back to 2010. However, the wall is now thickened and enhancing. Stranding is centered within the left renal sinus rather than on the cyst. Superimposed infection cannot be excluded. Left ureteral stent in place. No change in dilatation of the left renal pelvis. No ureteral calculi. Redemonstration of urothelial thickening of the bilateral collecting systems and ureters which could be correlated with urinalysis. Bladder wall thickening which is also unchanged. Bilateral nephrolithiasis. --Need drainage of the cyst by IR at tertiary center. Due to close proximity of the cyst to renal vasculature, drainage could be challenging Appreciate Urology input Appreciate ID Input Needs follow-up with urology upon discharge for stent removal Completed 10 day course of IV Cefepime Received vancomycin for 7 days Continue IV Rocephin Day #2 Patient is accepted at [facility] hospital for further management PERRI on CKD III: Cr 1.9>>1.15>1.2 Received IVF Avoid nephrotoxins as able H/O chronic obstructive pulmonary disease and chronic respiratory failure: On 2L NC Continue home inhalers. DM II: Hemoglobin A1c 6.1 on 10/31 Glipizide on hold Insulin sliding scale per protocol Continue monitor blood sugar H/O colon cancer: S/P laparoscopic colectomy, total proctectomy and ileostomy, and ileoproctostomy in 2010. Morbid obesity: BMI: 40.3 Anemia: Hb ~ 8 Baseline appear to be 8-9 on average in the past 2 months Hb drop likely dilutional Denies any bleeding issues Monitor Hyperlipidemia: Continue statin Hypertension: Continue metoprolol. DVT Px: Heparin SQ Code Status Full Code Total Time Total Time Spent Total Time Spent (In Minutes): 55 minutes Discharge Plan Discharge Items Patient Disposition: Transfer Acute Care Hospital Reason For Visit: ABDOMINAL PAIN Discharge Diagnosis: Acute Complicated UTI Bilateral nephrolithiasis Left Renal cyst, suspected infected renal cyst/abscess Acute Kidney Injury Activity: Per Instructions section Exercise/Sports: Wait until after follow-up appointment Non-emergency contact: Primary Care Provider and Urologist Call non-emergency contact if: you have any medication questions, your symptoms worsen, your pain is concerning for you and you have a fever Follow-up/Referrals: Lo Chand DO [Primary Care Provider] - Dietitian Info: Minced and Moist Diet: Carb Consistent or DM2 Addtl Attending Provider Instructions: Follow up with Dr.Yanni Quintero (Hospitalist) and (IR) at [facility] for further management Pending Studies at Discharge: No Stand-Alone Forms: My [facility] Skilled Items Patient informed of condition?: Yes DNR: No Discharge Level of Care: Other Communicable Disease: No Discharge Prognosis: Stable Lines: Peripheral IV Urinary Catheter: No Medications and DC Order Prescriptions: New phenazopyridine [Pyridium] 200 mg Tablet 200 mg PO TID PRNQty: 0 RF: 0 Continued ondansetron 4 mg tablet,disintegrating 4 mg PO Q8H PRN (Reason: nausea and vomiting) Qty: 10 RF: 0 metoprolol succinate 50 mg tablet extended release 24 hr 50 mg PO QAM RF: 0 Trelegy Ellipta 100-62.5-25 mcg blister with device 1 inh inhalation DAILY PRN (Reason: Shortness Of Breath) RF: 0 metoprolol succinate 25 mg tablet extended release 24 hr 25 mg PO PM RF: 0 albuterol sulfate 90 mcg/actuation Hfa Aerosol Inhaler 2 puff INHALATION Q4H PRN (Reason: Shortness Of Breath) RF: 0 magnesium oxide 400 mg magnesium Tablet 400 mg PO HS RF: 0 atorvastatin [Lipitor] 40 mg Tablet 40 mg PO QPM RF: 0 clopidogrel [Plavix] 75 mg Tablet 75 mg PO QPM RF: 0 pantoprazole [Protonix] 40 mg Tablet,Delayed Release (Dr/Ec) 40 mg PO BID RF: 0 riboflavin (vitamin B2) 400 mg Tablet 400 mg PO QPM RF: 0 cholecalciferol (vitamin D3) [Vitamin D3] 2,000 unit Capsule 2,000 unit PO QAM RF: 0 oxcarbazepine 300 mg tablet 300 mg PO BID RF: 0 acetaminophen [Tylenol Extra Strength] 500 mg Tablet 1,000 mg PO AMHS RF: 0 glipizide [Glucotrol XL] 2.5 mg tablet extended release 24hr 2.5 mg PO PM RF: 0 loperamide 2 mg Capsule 2 mg PO TID PRN (Reason: diarrhea) Qty: 30 RF: 0 tamsulosin 0.4 mg Capsule 0.4 mg PO QAM 30 Days Qty: 30 RF: 0 phenazopyridine [Pyridium] 100 mg Tablet 100 mg PO TID PRN (Reason: bladder spasms) Qty: 30 RF: 0 Discharge Orders: Discharge Order (Routine); Ordered 12/06/21 Ordered By: Danny Turner Admission Data Admit Date/Time: 11/18/21 02:16 Attending Provider: Danny Turner Admit Provider: He Stack Primary Care Provider: Lo Chand Other Providers: Davion Hector [facility] ; Joshua Phillips ; Mumtaz Chamberlain ; Javi Stein ; Radha Castellano ; Rajan dAam ; Dedra Mcdowell ; Kyleigh Enamorado ; Radha Greenberg ; Ra Mullins ; Drake Buenrostro ; Rita Hines ; Guillermina Greenberg ; Rosales Strong ; Yesica Grande ; Ronda Niño ; Gianfranco Mota ; Arlene Leavitt ; Cyrus Jo I. ; Donell Kee II ; Maribel Sanders ; Francisco Javier Wray ; Martin Lambert
[2021-12-06] MEDS: MAGNESIUM OXIDE 400 MG TAB PO SCH (19:55)
[2021-12-06] MEDS: CLOPIDOGREL BISULFATE 75 MG TAB PO SCH (19:55)
[2021-12-06] MEDS: METOPROLOL SUCC 25MG EXT REL TAB PO SCH (19:55)
[2021-12-06] MEDS: ATORVASTATIN 40 MG TAB PO SCH (19:55)
--- NOTE | 2021-12-09 13:50 | Communication Note ---
Date of Service: December 09, 2021 Patient growing VRE in urine culture received results on 12/09/21. Currently patient is getting treatment at [facility]. Results of urine culture fa xed to help with further management.
== END 2021-12-06 20:43 | disposition short-term general hospital (02) | DRG 660 ==
LOC: ED 14:26 → SUATTDRO 11-18 02:16 → EDINP 11-18 02:16 → 2N 11-19 16:36

== ENCOUNTER 2021-12-22 13:06 | Inpatient (IN) ==
[2021-12-22] MEDS ORDERED: ONDANSETRON INJ 2 MG/ML 2 ML VIAL IV STA (13:37)
[2021-12-22] MEDS ORDERED: SODIUM CHLORIDE 0.9% 500 ML IV STA (13:37)
[2021-12-22] MEDS ORDERED: MoRPHine SULFATE 4 MG/ML 1 ML CARP\\VIAL IV STA ×2 (13:37→17:50)
--- NOTE | 2021-12-22 13:39 | Emergency Department Note ---
Impression & Plan Acute UTI (urinary tract infection), Acute pyelonephritis ADMIT ED Provider Note HPI: The patient is a 66-year-old female with history of recurrent urinary tract infections, COPD, presents the emergency department with a chief complaint of back pain, nausea and vomiting, and dysuria that is been ongoing for about the past 12 days. Patient states her symptoms have been worsening over the past 2 to 3 days. Patient does have a surgical history of ureteral stent placement done this past October, she has had complicated course postoperatively with urinary tract infections. Patient also was noted to have a cystic lesion on her kidney at that time, she was evaluated by interventional radiology at [facility] and determined that this was not an infectious source. On arrival to the ED the patient complains of nausea and vomiting, states she does have some abdominal pain and left flank pain. She is alert on arrival, mildly tachycardic but otherwise hemodynamically stable and saturating well on room air. ROS: -GI: Nausea, left flank pain *10 point review systems was conducted and is otherwise negative unless stated above *Outpatient medications and allergy history reviewed PE: General: Alert, NAD HEENT: Normocephalic, atraumatic Eyes: Extraocular eye movement is intact, no scleral erythema Pulmonary: Clear to auscultation bilaterally, no wheezing Cardio: Regular rate and rhythm GI: Abdomen is soft, tenderness to left side of the abdomen and left flank : No suprapubic tenderness MSK: No evidence of trauma or malformation of the extremities, no edema Skin: No evidence of rash Neuro: Alert, no focal deficits Psychiatric: Cooperative equipment monitor phototypesetting: - An order was placed for continuous cardiac monitoring - Patient was noted to be in sinus rhythm with rate of 120 EKG: Rate: 105 Rhythm: Sinus tachycardia Intervals: Within normal limits ST changes: No ST elevation Time: 1320 Medical Decision Making: Patient presented to the emergency department with a chief complaint of abdominal pain, she is also had nausea and vomiting, IV was established, lab work obtained, patient is a mild leukocytosis with left shift, she is noted to have an elevated creatinine at 3.11, urinalysis is consistent with infection. CT imaging of the abdomen and pelvis shows evidence of some inflammatory changes of the left kidney that actually appear improved from previous, there is some infiltration around the existing stent that appears unchanged in position. There is some fullness of the left renal pelvis without obvious obstruction. There is cystitis noted, there is also mention of a 7.2 cm cyst previously noted on recent CT imaging, this is a cyst that was evaluated at [facility] for possible drainage that was determined not to be infectious or require interventional drainage. Reassessment the patient did require another dose of morphine, given her acute kidney injury with creatinine at 3.1, (baseline approx 1.3) she was given IV fluid resuscitation here in the ED and I did discuss the case with the on-call [facility] midlevel provider for the [facility] and the patient was admitted to the [facility] service for further care and urology consultation. Patient was in agreement to the above plan and she was admitted in stable condition. Diagnosis: 1. Acute kidney injury 2. Abdominal pain, nausea and 3. Urinary tract infection 4. Cystitis 5. Renal cyst Disposition: ADMIT Francisco Javier Steven, DO Emergency Medicine Past Med/Surg History Medical History Acute UTI (urinary tract infection) has presently per pt Anxiety Asthma well controlled per pt, rare inh use CHF (congestive heart failure) follows with Dr. Singh Chronic back pain Chronic headaches Chronic renal insufficiency stage 3, following with [facility] nephrology ([place]) Chronic respiratory failure with hypoxia Was on home oxygen in the past but no longer using at this time CKD (chronic kidney disease) COPD (chronic obstructive pulmonary disease) Deep vein thrombosis LLE - COULD NOT RECALL DATE - REPORTS SHE WAS TREATED AT [facility] W/ BLOOD THINNERS Depression Diabetes mellitus, type 2 GERD (gastroesophageal reflux disease) History of colon cancer 2012 S/P BOWEL RESECTION. History of COVID-27 Sep 2020 HTN (hypertension) Hyperlipidemia Mood disorder Morbid obesity with BMI of 40.0-44.9, adult Myocardial Infarction 06/2016--> [facility] -- CARDIAC CATH --> normal coronary anatomy without coronary obstruction but Plavix started per [facility] discharge summary On anticoagulant therapy plavix daily CALI (obstructive sleep apnea) Poor historian Seizure Pt states "i think i had them a long time ago". no other information. No hx of seizures noted in records Sinus tachycardia Follows with cardio Surgical History H/O hand surgery RIGHT History of appendectomy History of bilateral cataract extraction History of blepharoplasty History of cardiac cath 03/2018 - [facility] - DENIES STENTS/ANGIOPLASTY - [facility] - FOLLOWS W/ DR. SINGH History of closure of ileostomy History of colectomy due to colon cancer History of colonoscopy History of cystoscopy History of esophageal dilatation History of esophagogastroduodenoscopy (EGD) History of hysterectomy History of kidney surgery at age 9 yrs "something was wrong and had to fix it" History of lithotripsy History of tooth extraction History of total abdominal hysterectomy and bilateral salpingo-oophorectomy Hx of cholecystectomy Family History Other Breast cancer Social History Smoking Status: Never smoker Second Hand Exposure: No; Hx Alcohol Use: No Hx Substance Use: No Preferred Language: Slovak Communication Ability: Effective Reservoir Caretaker Required: No Beliefs That Will Affect Care: None marital status: Current Living Situation: Spouse Current Living Situation Comment: [facility] Feels Safe at Home: Yes Assistive Devices: Oxygen - Continuous Allergies Allergies Allergy/AdvReac Type Severity Reaction Status Date / Time fentanyl Allergy Severe itching/felt Verified 11/17/21 20:25 like throat closing salicylates Allergy Severe SHORTNESS Verified 11/17/21 20:25 OF BREATH Iodinated Contrast Media Allergy Intermediate EYES Verified 11/17/21 20:25 SWELLING/Hives amoxicillin [From Augmentin] Allergy Mild Rash Verified 11/17/21 20:25 aspirin Allergy Mild FACIAL Verified 11/17/21 20:25 SWELLING clavulanic acid Allergy Mild Rash Verified 11/17/21 20:25 [From Augmentin] hydromorphone Allergy Mild RASH/ITCHIN Verified 11/17/21 20:25 G meperidine AdvReac Intermediate ITCH Verified 11/17/21 20:25 morphine AdvReac Intermediate ITCH Verified 11/17/21 20:25 tramadol AdvReac Mild itch Verified 11/17/21 20:25 Home Meds Home Medications Medication Instructions Recorded Confirmed atorvastatin 40 mg tablet (Lipitor) 40 mg PO QPM 07/12/18 11/17/21 clopidogrel 75 mg tablet (Plavix) 75 mg PO QPM 07/12/18 11/17/21 pantoprazole 40 mg tablet,delayed 40 mg PO BID 07/12/18 11/17/21 release (Protonix) riboflavin (vitamin B2) 400 mg 400 mg PO QPM 07/12/18 11/17/21 tablet cholecalciferol (vitamin D3) 50 2,000 unit PO QAM 05/16/19 11/17/21 mcg (2,000 unit) capsule (Vitamin D3) albuterol sulfate 90 mcg/actuation 2 puff INHALATION Q4H PRN 07/21/19 11/17/21 aerosol inhaler magnesium oxide 400 mg PO HS 10/05/19 11/17/21 fluticasone fur. 100 mcg-umeclid 1 inh INHALATION DAILY PRN 12/11/20 11/17/21 62.5 mcg-vilant 25 mcg inhalat.powder (Trelegy Ellipta) metoprolol succinate 25 mg 25 mg PO PM tab 12/11/20 11/17/21 tablet,extended release 24 hr metoprolol succinate 50 mg 50 mg PO QAM 12/11/20 11/17/21 tablet,extended release 24 hr glipizide 2.5 mg tablet, extended 2.5 mg PO PM 04/29/21 11/17/21 release 24 hr (Glucotrol XL) acetaminophen 500 mg tablet 1,000 mg PO AMHS 10/11/21 11/17/21 (Tylenol Extra Strength) oxcarbazepine 300 mg tablet 300 mg PO BID 10/11/21 11/17/21 Previous Rx's Medication Instructions Recorded ondansetron 4 mg disintegrating 4 mg PO Q8H PRN #10 tab 06/02/21 tablet loperamide 2 mg capsule 2 mg PO TID PRN #30 cap 11/09/21 phenazopyridine 100 mg tablet 100 mg PO TID PRN #30 tab 11/09/21 (Pyridium) phenazopyridine 200 mg tablet 200 mg PO TID PRN #0 tab 12/06/21 (Pyridium) Results & Data (ED) Vital Signs Vital Signs - 24 hr 12/22/21 13:15 12/22/21 13:27 12/22/21 13:30 Temperature 37 C Temperature Source Oral Pulse Rate 116 H 104 H 102 H Pulse Rate [Apical] Pulse Rate from SpO2 Sensor 105 H 102 H Pulse Rhythm Regular Pulse Strength Normal Respiratory Rate 16 19 19 Respiratory Effort / Characteristics Non-Labored Respiratory Depth Normal Respiratory Pattern Regular Blood Pressure 147/102 H Blood Pressure Mean 117 Blood Pressure Position Lying Pulse Oximetry 98 94 94 Oxygen Delivery Method Room Air Sepsis Recent Fever Within 48 Hours No Sepsis New/Unexplained Change in Mental Status No Sepsis Action Taken by Nursing No Action Required 12/22/21 13:37 12/22/21 15:17 12/22/21 15:30 Temperature Temperature Source Pulse Rate 111 H 102 H Pulse Rate [Apical] 102 H Pulse Rate from SpO2 Sensor 110 H 100 H Pulse Rhythm Pulse Strength Respiratory Rate 14 15 Respiratory Effort / Characteristics Respiratory Depth Normal Respiratory Pattern Blood Pressure 125/105 H Blood Pressure Mean 111 Blood Pressure Position Pulse Oximetry 95 97 Oxygen Delivery Method Room Air Room Air Sepsis Recent Fever Within 48 Hours Sepsis New/Unexplained Change in Mental Status Sepsis Action Taken by Nursing 12/22/21 16:00 12/22/21 16:30 12/22/21 17:00 Temperature Temperature Source Pulse Rate 101 H 103 H 121 H Pulse Rate [Apical] Pulse Rate from SpO2 Sensor 98 H 102 H 99 H Pulse Rhythm Pulse Strength Respiratory Rate 13 15 20 Respiratory Effort / Characteristics Respiratory Depth Respiratory Pattern Blood Pressure 122/86 120/81 Blood Pressure Mean 98 94 Blood Pressure Position Pulse Oximetry 95 95 93 Oxygen Delivery Method Sepsis Recent Fever Within 48 Hours Sepsis New/Unexplained Change in Mental Status Sepsis Action Taken by Nursing Laboratory Data Result diagrams: 12/22/21 15:04 12/22/21 15:04 Lab Results 12/22/21 12/22/21 12/22/21 Range/Units 15:04 15:04 15:04 WBC 11.02 H (4.8-10.8) K/uL RBC 4.27 (4.2-5.4) M/uL Hgb 12.7 (12.0-16.0) g/dL Hct 40.6 (37-47) % MCV 95.1 (80-100) fL MCH 29.7 (25-34) pg MCHC 31.3 L (32-36) g/dL RDW Std Deviation 49.8 H (36.4-46.3) fL RDW Coeff of Teresa 14.4 (11.5-14.5) % Plt Count 358 (130-400) K/uL MPV 11.6 H (7.4-10.4) fL Immature Gran % (Auto) 2.5 % Neut % (Auto) 68.6 % Lymph % (Auto) 14.5 % [place] % (Auto) 10.0 % Eos % (Auto) 3.9 % Baso % (Auto) 0.5 % Neut # (Auto) 7.56 H (1.4-6.5) K/uL Lymph # (Auto) 1.60 (1.2-3.4) K/uL [place] # (Auto) 1.10 H (0.11-0.59) K/uL Eos # (Auto) 0.43 (0-0.5) K/uL Baso # (Auto) 0.05 (0-0.2) K/uL Immature Gran # (Auto) 0.28 H (0.00-0.02) K/uL PT 10.5 (9.0-12.0) Seconds INR 1.0 (0.9-1.1) Sodium 140 (136-145) mmol/L Potassium 4.3 (3.5-5.1) mmol/L Chloride 104 (98-107) mmol/L Carbon Dioxide 23 (21-32) mmol/L Anion Gap 13 H (3-11) BUN 19 (6-23) mg/dl Creatinine 3.11 H (0.6-1.2) mg/dl Est Cr Clr Drug Dosing 16.3 ml/min Est GFR ( Amer) 17.0 ml/min Est GFR (Non-Af Amer) 14.7 ml/min BUN/Creatinine Ratio 6.1 L (10-20) Glucose 115 H (70-99(Fasting)) mg/dl Calcium 10.6 H (8.5-10.1) mg/dl Total Bilirubin 0.5 (0.2-1.0) mg/dl AST 64 H (13-39) U/L ALT 56 H (7-52) U/L Alkaline Phosphatase 125 H (34-104) U/L Total Protein 7.9 (6.0-8.3) gm/dl Albumin 4.3 (3.4-5.0) gm/dl Globulin 3.6 (2.5-4.0) gm/dl Albumin/Globulin Ratio 1.2 (0.9-2) Lipase 45 (11-82) U/L Urine Color Urine Appearance (Clear) Urine pH (4.5-7.5) Ur Specific [place] (1.000-1.030) Urine Protein (Negative) Urine Glucose (UA) (Negative) Urine Ketones (Negative) Urine Blood (Negative) Urine Nitrite (Negative) Urine Bilirubin (Negative) Urine Urobilinogen (Negative) Ur Leukocyte Esterase (Negative) Urine WBC (Auto) (0-5) /hpf Urine RBC (Auto) (0-4) /hpf U Hyaline Cast (Auto) (0-5) /lpf U Epithel Cells (Auto) (0-5) /lpf Urine Bacteria (Auto) (Negative) Urine Yeast SARS-CoV-2, RNA, NAAT (NEGATIVE) 12/22/21 12/22/21 Range/Units 17:10 18:13 WBC (4.8-10.8) K/uL RBC (4.2-5.4) M/uL Hgb (12.0-16.0) g/dL Hct (37-47) % MCV (80-100) fL MCH (25-34) pg MCHC (32-36) g/dL RDW Std Deviation (36.4-46.3) fL RDW Coeff of Teresa (11.5-14.5) % Plt Count (130-400) K/uL MPV (7.4-10.4) fL Immature Gran % (Auto) % Neut % (Auto) % Lymph % (Auto) % [place] % (Auto) % Eos % (Auto) % Baso % (Auto) % Neut # (Auto) (1.4-6.5) K/uL Lymph # (Auto) (1.2-3.4) K/uL [place] # (Auto) (0.11-0.59) K/uL Eos # (Auto) (0-0.5) K/uL Baso # (Auto) (0-0.2) K/uL Immature Gran # (Auto) (0.00-0.02) K/uL PT (9.0-12.0) Seconds INR (0.9-1.1) Sodium (136-145) mmol/L Potassium (3.5-5.1) mmol/L Chloride (98-107) mmol/L Carbon Dioxide (21-32) mmol/L Anion Gap (3-11) BUN (6-23) mg/dl Creatinine (0.6-1.2) mg/dl Est Cr Clr Drug Dosing ml/min Est GFR ( Amer) ml/min Est GFR (Non-Af Amer) ml/min BUN/Creatinine Ratio (10-20) Glucose (70-99(Fasting)) mg/dl Calcium (8.5-10.1) mg/dl Total Bilirubin (0.2-1.0) mg/dl AST (13-39) U/L ALT (7-52) U/L Alkaline Phosphatase (34-104) U/L Total Protein (6.0-8.3) gm/dl Albumin (3.4-5.0) gm/dl Globulin (2.5-4.0) gm/dl Albumin/Globulin Ratio (0.9-2) Lipase (11-82) U/L Urine Color Dark Yellow Urine Appearance Turbid A (Clear) Urine pH 5.5 (4.5-7.5) Ur Specific [place] 1.020 (1.000-1.030) Urine Protein 3+ H (Negative) Urine Glucose (UA) Negative (Negative) Urine Ketones Trace H (Negative) Urine Blood 2+ H (Negative) Urine Nitrite Positive A (Negative) Urine Bilirubin 1+ H (Negative) Urine Urobilinogen Negative (Negative) Ur Leukocyte Esterase 3+ H (Negative) Urine WBC (Auto) >30 H (0-5) /hpf Urine RBC (Auto) >30 H (0-4) /hpf U Hyaline Cast (Auto) 1-5 (0-5) /lpf U Epithel Cells (Auto) >30 H (0-5) /lpf Urine Bacteria (Auto) Negative (Negative) Urine Yeast Not Reportable SARS-CoV-2, RNA, NAAT NEGATIVE (NEGATIVE) Administered Medications Discontinued Medications Sodium Chloride (Nss) 500 mls @ 999 mls/hr IV .Q31M STA Stop: 12/22/21 14:07 Last Infusion: 12/22/21 16:32 Dose: 0 mls/hr Documented by: [id number] Admin: 12/22/21 15:15 Dose: 999 mls/hr Documented by: [id number] Sodium Chloride (Nss 1000ml) 1,000 mls @ 999 mls/hr IV .Q1H1M ONE Stop: 12/22/21 17:36 Last Admin: 12/22/21 17:59 Dose: Not Given Documented by: [id number] Sodium Chloride (Nss 1000ml) 1,000 mls @ 999 mls/hr IV .Q1H1M ONE Stop: 12/22/21 18:41 Last Admin: 12/22/21 17:55 Dose: 999 mls/hr Documented by: [id number] Morphine Sulfate (Morphine Sulfate 4 Mg/Ml 1 Ml Carp\\Vial) 4 mg IV NOW STA Stop: 12/22/21 13:38 Last Admin: 12/22/21 15:14 Dose: 4 mg Documented by: [id number] Morphine Sulfate (Morphine Sulfate 4 Mg/Ml 1 Ml Carp\\Vial) 4 mg IV NOW STA Stop: 12/22/21 17:51 Last Admin: 12/22/21 17:59 Dose: 4 mg Documented by: [id number] Ondansetron HCl (Ondansetron Inj 2 Mg/Ml 2 Ml Vial) 4 mg IV NOW STA Stop: 12/22/21 13:38 Last Admin: 12/22/21 15:14 Dose: 4 mg Documented by: [id number] Imaging Data Radiologist's Impression: Abdomen/Pelvis CT 12/22/21 13:37 CT SCAN OF THE ABDOMEN AND PELVIS WITHOUT IV CONTRAST CLINICAL HISTORY: Flank pain. Dysuria. COMPARISON STUDY: Prior abdominal CT scans, most recently dated 12/05/2021. TECHNIQUE: CT scan of the abdomen and pelvis is performed from the lung bases to the proximal femora. Images are reviewed in the axial, sagittal, and coronal planes. IV contrast was not administered for this examination. Note that the examination was performed in significantly suboptimal fashion without IV contrast. A dose lowering technique was utilized adhering to the principles of ALARA. CT DOSE: 671.41 mGy.cm FINDINGS: Lung bases: The heart is normal in size and without pericardial effusion. There is bibasilar scarring/atelectasis. No airspace consolidation typical for pneumonia or pleural effusion is identified. There are scattered calcified granulomas. There is a moderate hiatal hernia. Liver: The unenhanced liver is normal in size, contour, and attenuation. There is no intrahepatic biliary ductal dilatation. Gallbladder: Surgically absent noting clips in the gallbladder fossa. Spleen: Normal in size and attenuation. Pancreas: The unenhanced pancreas is moderately atrophic and grossly unremarkable. Adrenal glands: Unremarkable. Kidneys: There is asymmetric cortical atrophy of the left kidney as compared the right with numerous foci of cortical scarring. There are least 4 nonobstructing left renal calculi which measure up to 10 mm. A 4 mm nonobstructing calculus is seen in the right kidney. A left ureteral stent is in appropriate position. No calcifications are identified in the left ureter along the course of the stent. Fullness of the left renal collecting system is unchanged. Infiltration around the left renal pelvis has modestly improved from previous. There is also mild stranding around the left ureter. No hydronephrosis is seen on the right. A 7.2 cm thick-walled cyst is again seen in the upper pole of the left kidney. This cyst has been present dating back to 2010. There is no gas within this cyst or the left renal collecting system. Abdominal vasculature: The abdominal aorta is normal in course and caliber noting scattered foci of atherosclerotic calcification. Bowel: There is postoperative change of subtotal colectomy with ileosigmoid anastomosis. No bowel obstruction is seen. The appendix is surgically absent. Peritoneum: There is no intraperitoneal free air or abdominal ascites. There is laxity of the ventral abdominal wall with diastases of the rectus musculature and protrusion of abdominal contents. Lymphadenopathy: None. Pelvic viscera: The bladder is decompressed and there is pericystic inflammation. The bladder contains the distal end of a left ureteral stent. The uterus is surgically absent. No adnexal lesion is identified. Skeletal structures: The skeletal structures are osteopenic. There is mild to moderate lumbosacral spondylosis. No lytic or blastic lesions are seen. IMPRESSION: 1. A left ureteral stent is unchanged in position. No calculi are identified in the left ureter along the course of the stent. 2. Fullness of the left renal pelvis is unchanged. 3. There is pericystic inflammation, as well as infiltration around the left kidney and ureter. Although this could be related to the presence of an indwelling stent, superimposed urinary tract infection is not excluded. Correlate with clinical findings and urinalysis. The degree of inflammation around the left renal pelvis appears modestly improved as compared to 12/05/2021. 4. There is a 7.2 cm cyst identified in the upper pole of left kidney which has been present dating back to 2010. The cyst remains thick walled, and superimposed infection is not excluded. 5. Bilateral nephrolithiasis as above. 6. Moderate hiatal hernia. 7. Subtotal colectomy. 8. Additional findings as above. ACT 112: Negative or not required by law. Electronically signed by: Caesar Yoon M.D. 12/22/2021 2:49 PM Discharge Plan Visit Data Chief Complaint: Nausea ED Provider: Francisco Javier Steven Discharge Problem: Acute UTI (urinary tract infection), Acute pyelonephritis Forms Stand Alone Forms: [facility] Prescriptions Prescriptions: No Action ondansetron 4 mg tablet,disintegrating 4 mg PO Q8H PRN (Reason: nausea and vomiting) Qty: 10 RF: 0 metoprolol succinate 50 mg tablet extended release 24 hr 50 mg PO QAM RF: 0 Trelegy Ellipta 100-62.5-25 mcg blister with device 1 inh inhalation DAILY PRN (Reason: Shortness Of Breath) RF: 0 metoprolol succinate 25 mg tablet extended release 24 hr 25 mg PO PM RF: 0 albuterol sulfate 90 mcg/actuation Hfa Aerosol Inhaler 2 puff INHALATION Q4H PRN (Reason: Shortness Of Breath) RF: 0 magnesium oxide 400 mg magnesium Tablet 400 mg PO HS RF: 0 atorvastatin [Lipitor] 40 mg Tablet 40 mg PO QPM RF: 0 clopidogrel [Plavix] 75 mg Tablet 75 mg PO QPM RF: 0 pantoprazole [Protonix] 40 mg Tablet,Delayed Release (Dr/Ec) 40 mg PO BID RF: 0 riboflavin (vitamin B2) 400 mg Tablet 400 mg PO QPM RF: 0 cholecalciferol (vitamin D3) [Vitamin D3] 2,000 unit Capsule 2,000 unit PO QAM RF: 0 oxcarbazepine 300 mg tablet 300 mg PO BID RF: 0 acetaminophen [Tylenol Extra Strength] 500 mg Tablet 1,000 mg PO AMHS RF: 0 glipizide [Glucotrol XL] 2.5 mg tablet extended release 24hr 2.5 mg PO PM RF: 0 loperamide 2 mg Capsule 2 mg PO TID PRN (Reason: diarrhea) Qty: 30 RF: 0 phenazopyridine [Pyridium] 100 mg Tablet 100 mg PO TID PRN (Reason: bladder spasms) Qty: 30 RF: 0 phenazopyridine [Pyridium] 200 mg Tablet 200 mg PO TID PRNQty: 0 RF: 0 Referrals Referrals: Lo Chand DO [Primary Care Provider] -
--- NOTE | 2021-12-22 14:51 | CT Scan Report ---
CT SCAN OF THE ABDOMEN AND PELVIS WITHOUT IV CONTRAST CLINICAL HISTORY: Flank pain. Dysuria. COMPARISON STUDY: Prior abdominal CT scans, most recently dated 12/05/2021. TECHNIQUE: CT scan of the abdomen and pelvis is performed from the lung bases to the proximal femora. Images are reviewed in the axial, sagittal, and coronal planes. IV contrast was not administered for this examination. Note that the examination was performed in significantly suboptimal fashion withou t IV contrast. A dose lowering technique was utilized adhering to the principles of ALARA. CT DOSE: 671.41 mGy.cm FINDINGS: Lung bases: The heart is normal in size and without pericardial effusion. There is bibasilar scarring /atelectasis. No airspace consolidation typical for pneumonia or pleural effusion is identified. Ther e are scattered calcified granulomas. There is a moderate hiatal hernia. Liver: The unenhanced liver is normal in size, contour, and attenuation. There is no intrahepatic george iary ductal dilatation. Gallbladder: Surgically absent noting clips in the gallbladder fossa. Spleen: Normal in size and attenuation. Pancreas: The unenhanced pancreas is moderately atrophic and grossly unremarkable. Adrenal glands: Unremarkable. Kidneys: There is asymmetric cortical atrophy of the left kidney as compared the right with numerous foci of cortical scarring. There are least 4 nonobstructing left renal calculi which measure up to 10 mm. A 4 mm nonobstructing calculus is seen in the right kidney. A left ureteral stent is in appropri ate position. No calcifications are identified in the left ureter along the course of the stent. Full ness of the left renal collecting system is unchanged. Infiltration around the left renal pelvis has modestly improved from previous. There is also mild stranding around the left ureter. No hydronephros is is seen on the right. A 7.2 cm thick-walled cyst is again seen in the upper pole of the left kidne y. This cyst has been present dating back to 2010. There is no gas within this cyst or the left renal collecting system. Abdominal vasculature: The abdominal aorta is normal in course and caliber noting scattered foci of a therosclerotic calcification. Bowel: There is postoperative change of subtotal colectomy with ileosigmoid anastomosis. No bowel obs truction is seen. The appendix is surgically absent. Peritoneum: There is no intraperitoneal free air or abdominal ascites. There is laxity of the ventral abdominal wall with diastases of the rectus musculature and protrusion of abdominal contents. Lymphadenopathy: None. Pelvic viscera: The bladder is decompressed and there is pericystic inflammation. The bladder contain s the distal end of a left ureteral stent. The uterus is surgically absent. No adnexal lesion is iden tified. Skeletal structures: The skeletal structures are osteopenic. There is mild to moderate lumbosacral sp ondylosis. No lytic or blastic lesions are seen. IMPRESSION: 1. A left ureteral stent is unchanged in position. No calculi are identified in the left ureter along the course of the stent. 2. Fullness of the left renal pelvis is unchanged. 3. There is pericystic inflammation, as well as infiltration around the left kidney and ureter. Altho ugh this could be related to the presence of an indwelling stent, superimposed urinary tract infectio n is not excluded. Correlate with clinical findings and urinalysis. The degree of inflammation around the left renal pelvis appears modestly improved as compared to 12/05/2021. 4. There is a 7.2 cm cyst identified in the upper pole of left kidney which has been present dating b ack to 2010. The cyst remains thick walled, and superimposed infection is not excluded. 5. Bilateral nephrolithiasis as above. 6. Moderate hiatal hernia. 7. Subtotal colectomy. 8. Additional findings as above. ACT 112: Negative or not required by law. Electronically signed by: Caesar Yoon M.D. 12/22/2021 2:49 PM
[2021-12-22 15:14] LABS: Basophils # (auto) 0.05 K/uL (0-0.2); Basophils % (auto) 0.5 %; Eosinophils # (auto) 0.43 K/uL (0-0.5); Eosinophils % (auto) 3.9 %; Hematocrit (blood only) 40.6 % (37-47); Hemoglobin 12.7 g/dL (12.0-16.0); Immature Granulocytes # (auto) 0.28 K/uL (0.00-0.02); Immature Granulocytes % (auto) 2.5 %; Lymphocytes % (auto) 14.5 %; Mean Corpuscular Hemoglobin 29.7 pg (25-34); Mean Corpuscular Hgb Conc 31.3 g/dL (32-36); Mean Corpuscular Volume 95.1 fL (80-100); Mean Platelet Volume 11.6 fL (7.4-10.4); Neutrophils # (auto) 7.56 K/uL (1.4-6.5); Neutrophils % (auto) 68.6 %; Platelet Count 358 K/uL (130-400); RDW Coefficient of Variation 14.4 % (11.5-14.5); RDW Standard Deviation 49.8 fL (36.4-46.3); Red Blood Count 4.27 M/uL (4.2-5.4); White Blood Count 11.02 K/uL (4.8-10.8)
[2021-12-22 15:32] LABS: Prothrombin Time 10.5 Seconds (9.0-12.0)
[2021-12-22 15:45] LABS: Albumin Globulin Ratio 1.2 (0.9-2); Albumin Level 4.3 gm/dl (3.4-5.0); BUN Creatinine Ratio 6.1 (10-20); Bilirubin,Total 0.5 mg/dl (0.2-1.0); Calcium 10.6 mg/dl (8.5-10.1); Creatinine Clr Calc Pharmacy 16.3 ml/min; Est GFR (Non-African American) 14.7 ml/min; Globulin 3.6 gm/dl (2.5-4.0); Potassium 4.3 mmol/L (3.5-5.1); Total Protein 7.9 gm/dl (6.0-8.3)
[2021-12-22] MEDS ORDERED: SODIUM CHLORIDE 0.9% 1000ML 1,000 ML IV ONE ×2 (16:36→17:41)
[2021-12-22 17:27] LABS: Appearance Urine Turbid (Clear); Bacteria Urine Automated Negative (Negative); Blood Urine 2+ (Negative); Color Urine Dark Yellow; Epithelial Cell Urine Auto >30 /lpf (0-5); Glucose Urine UA Negative (Negative); Ketones Urine Trace (Negative); Leukocyte Esterase Urine 3+ (Negative); Nitrite Urine Positive (Negative); Protein Urine 3+ (Negative); RBC Urine Automated >30 /hpf (0-4); Urobilinogen Urine Negative (Negative); WBC Urine Automated >30 /hpf (0-5); pH Urine 5.5 (4.5-7.5)
[2021-12-22 17:29] LABS: Bilirubin Urine 1+ (Negative)
[2021-12-22] MEDS ORDERED: cefTRIAXone SODIUM 2,000 MG/70 ML BAG IV STA (17:40)
--- NOTE | 2021-12-22 20:13 | Communication Note ---
Date of Service: December 22, 2021 Addendum to Admission Note: Pt is a 66 y/o F with VRE UTI, DMII, COPD, CKD III, TIA, HTN, Bipolar, Chronic respiratory failure on 2L, Colon ca s/p colectomy, proctectomy and ileostomy, tremor, hx of obstructive uropathy s/p ureteral stent, b/l kidney cysts admitted for PERRI and UTI. PE: NAD, obese pt Lungs: CTA, no wheezing or crackles Cards: Normal S1/S2, no murmur Abd: diffuse abd ttp, obese abd, soft, ND MSK: trace pitting edema b/l LE Psych: AAOx3, normal affect A/P: Nausea/Vomiting with L mid back pain: -2/2 kidney cyst infection vs UTI -CT abd showed no obstruction of the L ureteral stent -since pt had VRE will start the pt on dapto and ceftriaxone for Gram neg coverage -Urology consult -if symptoms worsen or no improvement with abx then might consider transferring the pt to [place] for possible IR intervention for renal Cyst PERRI: -2/2 UTI and dehydration (N/V with decreased PO intake) - s/p IVF and prn zofran -will trend BMP Other chronic medical problems: plan as in the admission note by NICHOL Zavala
[2021-12-22] MEDS ORDERED: SODIUM CHLORIDE 0.9% 1000ML 1,000 ML IV SCH (20:14)
[2021-12-22] MEDS ORDERED: ACETAMINOPHEN 325 MG TAB PO PRN (20:14)
[2021-12-22] MEDS ORDERED: DAPTOmycin 500 MG in SYRINGE 0 ML IV ONE (20:30)
--- NOTE | 2021-12-22 20:34 | History & Physical Report ---
Date of Service December 22, 2021 Assessment & Plan (1) Recurrent UTI: (2) Bilateral nephrolithiasis: Plan: Admit to [facility] with telemetry Patient presenting from home with reports of intractable nausea and vomiting. Recent hospitalizations as per HPI. In the ED, UA suggestive of UTI. Patient is tachycardic however afebrile, stable BP, WBC 11 K Recent urine cultures reviewed. S/p ceftriaxone in ED, continue with, add daptomycin due to recent VRE urine culture. Urology consult given recent stent placement and renal cyst history ID consult due to recurrent UTIs (3) Acute kidney injury superimposed on CKD: (4) CKD (chronic kidney disease), stage III: Plan: Creatinine 3.1, baseline low-mid 1's Likely prerenal in nature due to vomiting IVF, follow renal functions (5) Nausea and vomiting: Plan: Likely due to UTI Continue supportive care with IVF, antiemetics Clear liquid diet, advance as tolerated (6) History of TIA (transient ischemic attack): Plan: Continue clopidogrel (7) Bipolar disorder: Plan: Previously prescribed oxcarbazepine, does not seem as though patient has been taking this medication recently Likely will need outpatient follow-up with psychiatry (8) Chronic anemia: Plan: Hgb 12.7, likely hemoconcentrated due to dehydration Baseline hemoglobin ~ 8.0 (9) Chronic respiratory failure with hypoxia: (10) COPD (chronic obstructive pulmonary disease): Plan: Saturating well on chronic 2 L of oxygen No signs of acute exacerbation, continue home inhalers (11) DM type 2 (diabetes mellitus, type 2): Plan: Hgb A1c 6.1 10/2021 Hold oral agents and utilize NovoLog per protocol while hospitalized (12) Sinus tachycardia: Plan: Controlled on metoprolol, continue (13) CALI (obstructive sleep apnea): Plan: Had been on CPAP in the remote past, outpatient sleep study pending (14) DVT prophylaxis: Plan: SQ heparin Admission and Anticipated Discharge Date Admission Date: December 22, 2021 History of Present Illness Chief Complaint: Vomiting Primary Care Provider: Lo Chand DO 66-year-old female with PMH DM type II, dyslipidemia, COPD on chronic 2 L of oxygen, CALI, HTN, CKD stage IV, bipolar disorder, history of colon cancer s/p colectomy, renal calculi, and other problems listed below who presents the ED for evaluation of vomiting. Summary of recent hospitalizations: 10/11/2021-10/24/2021: Patient admitted for management of 5 mm obstructing calculus just above the left vesicoureteral junction. S/p cystoscopy with left retrograde pyelogram aspiration and stent placement by Dr. Adam on 10/12. Hospital course complicated by acute respiratory acidosis requiring intubation. 10/30/2021-11/09/2021: Patient admitted for COVID-19 pneumonia. Required only a small amount of supplemental oxygen. Completed a course of Decadron. 11/18/2021 -12/06/2021 (transfer[place] [facility]/2021): Patient admitted for flank pain, UTI, left renal cyst Urine culture from 11/17 grew Klebsiella, urine culture from 11/26 grew Enterococcus, urine culture from 12/06 grew VRE. There was concern for possible development of abscess/infected cyst. Patient transferred to [facility] [place] further management and possible IR drainage. Per [facility] discharge summary, "Urology consulted and recommended repeat renal ultrasound to evaluate cyst. Imaging revealed stable, simple cysts unchanged from prior imaging; no concern for infection & no need for drainage. Infectious disease consulted and recommended discontinuing antibiotics given no concern for renal abscess, urine culture during this hospital stay with no growth, and adequate treatment of prior UTIs." Patient presents today stating that she has been vomiting since being discharged from [facility]. She has been unable to take any of her medications. Patient was seen in PCPs office today and was sent to the ED for further evaluation. Patient reports dysuria and bladder pain. Denies hematemesis, coffee-ground emesis, bright red bleeding per rectum, dark tarry stools. No chest pain or shortness of breath. Denies fevers and chills. No lightheadedness, dizziness, diaphoresis, syncopal events. In the ED, patient is tachycardic, however blood pressure stable. She is afebrile. WBC 11 K. Creatinine 3.1 (baseline low to mid 1's). CT ABD/pelvis essentially improved/unchanged from prior. Patient was given IV morphine, IV Zofran, IV ceftriaxone and IVF. Allergies Allergy/AdvReac Type Severity Reaction Status Date / Time fentanyl Allergy Severe itching/felt Verified 11/17/21 20:25 like throat closing salicylates Allergy Severe SHORTNESS Verified 11/17/21 20:25 OF BREATH Iodinated Contrast Media Allergy Intermediate EYES Verified 11/17/21 20:25 SWELLING/Hives amoxicillin [From Augmentin] Allergy Mild Rash Verified 11/17/21 20:25 aspirin Allergy Mild FACIAL Verified 11/17/21 20:25 SWELLING clavulanic acid Allergy Mild Rash Verified 11/17/21 20:25 [From Augmentin] hydromorphone Allergy Mild RASH/ITCHIN Verified 11/17/21 20:25 G meperidine AdvReac Intermediate ITCH Verified 11/17/21 20:25 morphine AdvReac Intermediate ITCH Verified 11/17/21 20:25 tramadol AdvReac Mild itch Verified 11/17/21 20:25 Home Medications Medication Instructions Recorded Confirmed Type atorvastatin 40 mg tablet (Lipitor) 40 mg PO QPM 07/12/18 12/22/21 History clopidogrel 75 mg tablet (Plavix) 75 mg PO QPM 07/12/18 12/22/21 History pantoprazole 40 mg tablet,delayed 40 mg PO BID 07/12/18 12/22/21 History release (Protonix) riboflavin (vitamin B2) 400 mg 400 mg PO QPM 07/12/18 12/22/21 History tablet cholecalciferol (vitamin D3) 50 2,000 unit PO QAM 05/16/19 12/22/21 History mcg (2,000 unit) capsule (Vitamin D3) albuterol sulfate 90 mcg/actuation 2 puff INHALATION Q4H PRN 07/21/19 12/22/21 History aerosol inhaler magnesium oxide 400 mg PO HS 10/05/19 12/22/21 History fluticasone fur. 100 mcg-umeclid 1 inh INHALATION DAILY PRN 12/11/20 12/22/21 History 62.5 mcg-vilant 25 mcg inhalat.powder (Trelegy Ellipta) metoprolol succinate 25 mg 25 mg PO PM tab 12/11/20 12/22/21 History tablet,extended release 24 hr metoprolol succinate 50 mg 50 mg PO QAM 12/11/20 12/22/21 History tablet,extended release 24 hr glipizide 2.5 mg tablet, extended 2.5 mg PO PM 04/29/21 12/22/21 History release 24 hr (Glucotrol XL) ondansetron 4 mg disintegrating 4 mg PO Q8H PRN #10 tab 06/02/21 12/22/21 Rx tablet acetaminophen 500 mg tablet 1,000 mg PO AMHS 10/11/21 12/22/21 History (Tylenol Extra Strength) loperamide 2 mg capsule 2 mg PO TID PRN #30 cap 11/09/21 12/22/21 Rx phenazopyridine 100 mg tablet 100 mg PO TID PRN #30 tab 11/09/21 12/22/21 Rx (Pyridium) oxcarbazepine 300 mg tablet 300 mg PO BID 12/22/21 12/22/21 History oxycodone 5 mg tablet 5 mg PO BID PRN 12/22/21 12/22/21 History tamsulosin 0.4 mg capsule 0.4 mg PO DAILY 12/22/21 12/22/21 History Past Med/Surg History Medical History Anxiety Asthma well controlled per pt, rare inh use Bipolar disorder Chronic back pain Chronic headaches Chronic renal insufficiency stage 3, following with [facility] nephrology ([place]) Chronic respiratory failure with hypoxia CKD (chronic kidney disease), stage III COPD (chronic obstructive pulmonary disease) Deep vein thrombosis LLE - COULD NOT RECALL DATE - REPORTS SHE WAS TREATED AT [facility] W/ BLOOD THINNERS Depression DM type 2 (diabetes mellitus, type 2) GERD (gastroesophageal reflux disease) History of colon cancer 2012 S/P BOWEL RESECTION. History of COVID-27 Sep 2020 History of TIA (transient ischemic attack) HTN (hypertension) Hyperlipidemia Kidney stone Myocardial Infarction 06/2016--> [facility] -- CARDIAC CATH --> normal coronary anatomy without coronary obstruction but Plavix started per [facility] discharge summary On anticoagulant therapy plavix daily CALI (obstructive sleep apnea) Poor historian Renal colic Sinus tachycardia Follows with cardio Takotsubo cardiomyopathy History of in 2015 with return to normal LV function Surgical History H/O hand surgery RIGHT History of appendectomy History of bilateral cataract extraction History of blepharoplasty History of cardiac cath 03/2018 - [place] - DENIES STENTS/ANGIOPLASTY - [facility] - FOLLOWS W/ DR. TORRES History of closure of ileostomy History of colectomy due to colon cancer History of colonoscopy History of cystoscopy History of esophageal dilatation History of esophagogastroduodenoscopy (EGD) History of hysterectomy History of kidney surgery at age 9 yrs "something was wrong and had to fix it" History of lithotripsy History of tooth extraction History of total abdominal hysterectomy and bilateral salpingo-oophorectomy Hx of cholecystectomy Family History Other Breast cancer Social History Smoking Status: Never smoker Second Hand Exposure: No; Hx Alcohol Use: No Hx Substance Use: No Preferred Language: Swedish Communication Ability: Effective Coil Taper Required: No Beliefs That Will Affect Care: None marital status: Current Living Situation: Alone Current Living Situation Comment: [facility] Other Information That Helps Us Care for You: No Feels Safe at Home: Yes Safety Concerns: Feels Safe At This Time Assistive Devices: Oxygen - Continuous Review of Systems Review of Systems: ROS per HPI, all other systems reviewed and negative Physical Exam Physical Exam: please refer to Dr. El's addendum for physical exam Results & Data Results & Data ([facility]) Vital Signs (Past 12 Hours) Vital Signs Temp Pulse Pulse Resp BP Pulse Ox 12/22/21 19:30 18 135/60 99 12/22/21 17:00 121 H 20 120/81 93 12/22/21 16:30 103 H 15 95 12/22/21 16:00 101 H 13 122/86 95 12/22/21 15:30 102 H 15 97 12/22/21 15:17 111 H 102 H 14 125/105 H 95 12/22/21 13:30 102 H 19 94 12/22/21 13:27 104 H 19 94 12/22/21 13:15 37 C 116 H 16 147/102 H 98 Laboratory Results Short CBC 12/22/21 12/22/21 Range/Units 15:04 15:04 WBC 11.02 H (4.8-10.8) K/uL Hgb 12.7 (12.0-16.0) g/dL Hct 40.6 (37-47) % Plt Count 358 (130-400) K/uL Creatinine 3.11 H (0.6-1.2) mg/dl BMP 12/22/21 15:04 Sodium 140 Potassium 4.3 Chloride 104 Carbon Dioxide 23 BUN 19 Creatinine 3.11 H Glucose 115 H Calcium 10.6 H Liver Function 12/22/21 Range/Units 15:04 Total Bilirubin 0.5 (0.2-1.0) mg/dl AST 64 H (13-39) U/L ALT 56 H (7-52) U/L Alkaline Phosphatase 125 H (34-104) U/L Albumin 4.3 (3.4-5.0) gm/dl Urine 12/22/21 Range/Units 17:10 Urine Color Dark Yellow Urine Appearance Turbid A (Clear) Urine pH 5.5 (4.5-7.5) Ur Specific [place] 1.020 (1.000-1.030) Urine Protein 3+ H (Negative) Urine Glucose (UA) Negative (Negative) Diagnostic Findings Abdomen/Pelvis CT 12/22/21 13:37 CT SCAN OF THE ABDOMEN AND PELVIS WITHOUT IV CONTRAST CLINICAL HISTORY: Flank pain. Dysuria. COMPARISON STUDY: Prior abdominal CT scans, most recently dated 12/05/2021. TECHNIQUE: CT scan of the abdomen and pelvis is performed from the lung bases to the proximal femora. Images are reviewed in the axial, sagittal, and coronal planes. IV contrast was not administered for this examination. Note that the examination was performed in significantly suboptimal fashion without IV contrast. A dose lowering technique was utilized adhering to the principles of ALARA. CT DOSE: 671.41 mGy.cm FINDINGS: Lung bases: The heart is normal in size and without pericardial effusion. There is bibasilar scarring/atelectasis. No airspace consolidation typical for pneumonia or pleural effusion is identified. There are scattered calcified granulomas. There is a moderate hiatal hernia. Liver: The unenhanced liver is normal in size, contour, and attenuation. There is no intrahepatic biliary ductal dilatation. Gallbladder: Surgically absent noting clips in the gallbladder fossa. Spleen: Normal in size and attenuation. Pancreas: The unenhanced pancreas is moderately atrophic and grossly unremarkable. Adrenal glands: Unremarkable. Kidneys: There is asymmetric cortical atrophy of the left kidney as compared the right with numerous foci of cortical scarring. There are least 4 nonobstructing left renal calculi which measure up to 10 mm. A 4 mm nonobstructing calculus is seen in the right kidney. A left ureteral stent is in appropriate position. No calcifications are identified in the left ureter along the course of the stent. Fullness of the left renal collecting system is unchanged. Infiltration around the left renal pelvis has modestly improved from previous. There is also mild stranding around the left ureter. No hydronephrosis is seen on the right. A 7.2 cm thick-walled cyst is again seen in the upper pole of the left kidney. This cyst has been present dating back to 2010. There is no gas within this cyst or the left renal collecting system. Abdominal vasculature: The abdominal aorta is normal in course and caliber noting scattered foci of atherosclerotic calcification. Bowel: There is postoperative change of subtotal colectomy with ileosigmoid anastomosis. No bowel obstruction is seen. The appendix is surgically absent. Peritoneum: There is no intraperitoneal free air or abdominal ascites. There is laxity of the ventral abdominal wall with diastases of the rectus musculature and protrusion of abdominal contents. Lymphadenopathy: None. Pelvic viscera: The bladder is decompressed and there is pericystic inflammation. The bladder contains the distal end of a left ureteral stent. The uterus is surgically absent. No adnexal lesion is identified. Skeletal structures: The skeletal structures are osteopenic. There is mild to moderate lumbosacral spondylosis. No lytic or blastic lesions are seen. IMPRESSION: 1. A left ureteral stent is unchanged in position. No calculi are identified in the left ureter along the course of the stent. 2. Fullness of the left renal pelvis is unchanged. 3. There is pericystic inflammation, as well as infiltration around the left kidney and ureter. Although this could be related to the presence of an indwelling stent, superimposed urinary tract infection is not excluded. Correlate with clinical findings and urinalysis. The degree of inflammation around the left renal pelvis appears modestly improved as compared to 12/05/2021. 4. There is a 7.2 cm cyst identified in the upper pole of left kidney which has been present dating back to 2010. The cyst remains thick walled, and superimposed infection is not excluded. 5. Bilateral nephrolithiasis as above. 6. Moderate hiatal hernia. 7. Subtotal colectomy. 8. Additional findings as above. ACT 112: Negative or not required by law. Electronically signed by: Caesar Yoon M.D. 12/22/2021 2:49 PM Code Status & VTE Plan Code Status Patient is a full code. VTE Prophylaxis Plan VTE Prophylaxis will be ordered: Yes Supervising Physician Co-Signing Physician Notes Addendum is in a communication note
[2021-12-22] MEDS ORDERED: GLUCAGON FOR INJ 1 MG VIAL SQ PRN (20:49)
[2021-12-22] MEDS ORDERED: GLUCOSE 10 TABS/TUBE PO PRN (20:49)
[2021-12-22] MEDS ORDERED: DEXTROSE 50% 50 ML SYRINGE IV PRN (20:49)
[2021-12-22] MEDS ORDERED: GLUCOSE 40% GEL 15 GM TUBE PO PRN (20:49)
[2021-12-22] MEDS ORDERED: CARBOHYDRATES FOR HYPOGLYCEMIA PO PRN (20:49)
[2021-12-22] MEDS ORDERED: FLUTICASONE FUROATE 100MCG 14 PUFFS/INHALER INH PRN (20:51)
[2021-12-22] MEDS ORDERED: UMECLIDINIUM/VILANTEROL 62.5/25MCG 7 PUFFS/INHALER INH PRN (20:51)
[2021-12-22] MEDS: ONDANSETRON INJ 2 MG/ML 2 ML VIAL IV PRN (21:20)
[2021-12-22] MEDS: CLOPIDOGREL BISULFATE 75 MG TAB PO SCH (21:43)
[2021-12-22] MEDS: PANTOprazole 40 MG TAB PO SCH (21:43)
[2021-12-22] MEDS: HEPARIN SOD 5,000 UNIT/0.5 ML VIAL SQ SCH (21:43)
[2021-12-22] MEDS: METOPROLOL SUCC 25MG EXT REL TAB PO SCH (21:43)
[2021-12-22] MEDS: INSULIN ASPART PER UNIT SC SCH (21:55)
[2021-12-22] MEDS ORDERED: LACTATED RINGER'S 1,000 ML IV ONE (22:41)
--- NOTE | 2021-12-22 23:46 | Urology Consultation ---
Date of Consultation December 22, 2021 Assessment & Plan (1) Recurrent UTI: Patient has been admitted on the hospitalist service proceeding as follows: As the patient's most recent urinary tract infection grew out VRE she has been started on broad-spectrum antibiotics in form of daptomycin. Recommend continuing antibiotics until culture data is available (blood and urine cultures have been sent) at which time antibiotics can be further tailored based on these results I suspect the patient's acute kidney injury is at least partially on the basis of hypovolemia/prerenal due to poor oral intake as she has had persistent nausea vomiting and has been unable to maintain meaningful oral intake Recommend continuing hydration measures with IV fluids (she is receiving lactated Ringer's at 100 cc/h) Recommend following serial labs Will make the patient n.p.o. for the present time in the event and any procedure intervention such as cystoscopy with possible stent removal or stent exchange need to be performed. History of Present Illness Reason for Consultation: 1. Recurrent UTI 2. Kidney cyst Attending Physician: Jodie El MD History of Present Illness This is a 66-year-old female who is known to our service. Patient has had numerous admissions to [facility] in the recent past. The patient was admitted from October 11 through October 24 of this year secondary to a 5 mm obstructing left-sided kidney stone. During this admission patient had a cystoscopy with stent placement by Dr. Adam on October 12. During this admission the patient did require a period of mechanical ventilation secondary to respiratory acidosis. Patient was readmitted to the hospital on October 30 through November 09 of this year secondary to Covid pneumonia. Patient completed a course of Decadron during this time. Patient was readmitted to [facility] from November 18 through December 06 of this year. During this admission the patient was admitted for flank pain and a urinary tract infection along with a left renal cyst. Cultures of the urine during this admission grew Klebsiella on 11/17/2021 and a repeat urine culture on 11/26/2021 grew out Enterococcus. An additional urine culture from 12/06/2021 grew out VRE. During this admission there is concern that jessi ent developed an abscess/infected cyst of her kidney and patient was transferred to [facility] for possible drainage by interventional radiology. During her stay at [facility] neurology was consulted and did not feel the patient had any concern for a kidney abscess or infected cyst and there is no need for drainage and therefore this was not undertaken. Patient was also seen by infectious disease and it was recommended the patient's antibiotics be discontinued as there is no concern for her renal abscess and a urine culture during that stay did not show any growth and it was felt that patient's urinary tract infections were treated adequately. Patient was discharged on 12/11/2021 and it was recommended the patient undergo a repeat renal ultrasound for further evaluation of the kidney cyst noted. Patient presented to [facility] today as she said that since her discharge from [facility] she has been having persistent nausea vomiting unable to take any of her medications or keep any meaningful oral intake down. She denies any fevers, shakes, chills. She does note left- sided flank pain. Does also report dysuria and urinary frequency. She does note when she urinates she feels as though she can empty her bladder completely. I asked patient about her left renal stent and she said that this remains in place and to the best of her knowledge there has been no discussion about having the stent removed at this time. Since arrival to the emergency department the patient has had labs and imaging which I independently reviewed. The patient is noted to have a left ureteral stent in position. Pericystic inflammation and inflammation of the left kidney and ureter are noted. A 7.2 cm cyst is noted in the upper pole of the left kidney. The study has been present on comparison CT scans dating back to 2010. Labs include a CBC her white blood cell count is 11.0. Hemoglobin and hematocrit are both normal. Her platelet count was noted to be normal. Chemistry profile showed sodium, potassium, and BUN were normal. Patient's creatinine was elevated at 3.1 which was noted to be above baseline values which usually run around 1.1-1.2. Urinalysis showed turbid urine which was positive for nitrites. 3+ leukocyte Estrace was noted and greater than 30 white blood cells per high-power field were noted. There is no bacteria or yeast noted in the urine. A Covid test was ordered and was negative. At the time of my interview the patient was in no distress but she was having continued nausea and vomiting. Since arrival to the hospital she has been noted to be afebrile, not tachycardic, and hemodynamically stable. Allergies Allergy/AdvReac Type Severity Reaction Status Date / Time fentanyl Allergy Severe itching/felt Verified 11/17/21 20:25 like throat closing salicylates Allergy Severe SHORTNESS Verified 11/17/21 20:25 OF BREATH Iodinated Contrast Media Allergy Intermediate EYES Verified 11/17/21 20:25 SWELLING/Hives amoxicillin [From Augmentin] Allergy Mild Rash Verified 11/17/21 20:25 aspirin Allergy Mild FACIAL Verified 11/17/21 20:25 SWELLING clavulanic acid Allergy Mild Rash Verified 11/17/21 20:25 [From Augmentin] hydromorphone Allergy Mild RASH/ITCHIN Verified 11/17/21 20:25 G meperidine AdvReac Intermediate ITCH Verified 11/17/21 20:25 morphine AdvReac Intermediate ITCH Verified 11/17/21 20:25 tramadol AdvReac Mild itch Verified 11/17/21 20:25 Home Medications Medication Instructions Recorded Confirmed Type atorvastatin 40 mg tablet (Lipitor) 40 mg PO QPM 07/12/18 12/22/21 History clopidogrel 75 mg tablet (Plavix) 75 mg PO QPM 07/12/18 12/22/21 History pantoprazole 40 mg tablet,delayed 40 mg PO BID 07/12/18 12/22/21 History release (Protonix) riboflavin (vitamin B2) 400 mg 400 mg PO QPM 07/12/18 12/22/21 History tablet cholecalciferol (vitamin D3) 50 2,000 unit PO QAM 05/16/19 12/22/21 History mcg (2,000 unit) capsule (Vitamin D3) albuterol sulfate 90 mcg/actuation 2 puff INHALATION Q4H PRN 07/21/19 12/22/21 History aerosol inhaler magnesium oxide 400 mg PO HS 10/05/19 12/22/21 History fluticasone fur. 100 mcg-umeclid 1 inh INHALATION DAILY PRN 12/11/20 12/22/21 History 62.5 mcg-vilant 25 mcg inhalat.powder (Trelegy Ellipta) metoprolol succinate 25 mg 25 mg PO PM tab 12/11/20 12/22/21 History tablet,extended release 24 hr metoprolol succinate 50 mg 50 mg PO QAM 12/11/20 12/22/21 History tablet,extended release 24 hr glipizide 2.5 mg tablet, extended 2.5 mg PO PM 04/29/21 12/22/21 History release 24 hr (Glucotrol XL) ondansetron 4 mg disintegrating 4 mg PO Q8H PRN #10 tab 06/02/21 12/22/21 Rx tablet acetaminophen 500 mg tablet 1,000 mg PO AMHS 10/11/21 12/22/21 History (Tylenol Extra Strength) loperamide 2 mg capsule 2 mg PO TID PRN #30 cap 11/09/21 12/22/21 Rx phenazopyridine 100 mg tablet 100 mg PO TID PRN #30 tab 11/09/21 12/22/21 Rx (Pyridium) oxcarbazepine 300 mg tablet 300 mg PO BID 12/22/21 12/22/21 History oxycodone 5 mg tablet 5 mg PO BID PRN 12/22/21 12/22/21 History tamsulosin 0.4 mg capsule 0.4 mg PO DAILY 12/22/21 12/22/21 History Patient History Medical History Anxiety Asthma well controlled per pt, rare inh use Bipolar disorder Chronic back pain Chronic headaches Chronic renal insufficiency stage 3, following with [facility] nephrology ([place]) Chronic respiratory failure with hypoxia CKD (chronic kidney disease), stage III COPD (chronic obstructive pulmonary disease) Deep vein thrombosis LLE - COULD NOT RECALL DATE - REPORTS SHE WAS TREATED AT [facility] W/ BLOOD THINNERS Depression DM type 2 (diabetes mellitus, type 2) GERD (gastroesophageal reflux disease) History of colon cancer 2012 S/P BOWEL RESECTION. History of COVID-27 Sep 2020 History of TIA (transient ischemic attack) HTN (hypertension) Hyperlipidemia Kidney stone Myocardial Infarction 06/2016--> [facility] -- CARDIAC CATH --> normal coronary anatomy without coronary obstruction but Plavix started per [facility] discharge summary On anticoagulant therapy plavix daily CALI (obstructive sleep apnea) Poor historian Renal colic Sinus tachycardia Follows with cardio Takotsubo cardiomyopathy History of in 2015 with return to normal LV function Surgical History H/O hand surgery RIGHT History of appendectomy History of bilateral cataract extraction History of blepharoplasty History of cardiac cath 03/2018 - [place] - DENIES STENTS/ANGIOPLASTY - [facility] - FOLLOWS W/ DR. TORRES History of closure of ileostomy History of colectomy due to colon cancer History of colonoscopy History of cystoscopy History of esophageal dilatation History of esophagogastroduodenoscopy (EGD) History of hysterectomy History of kidney surgery at age 9 yrs "something was wrong and had to fix it" History of lithotripsy History of tooth extraction History of total abdominal hysterectomy and bilateral salpingo-oophorectomy Hx of cholecystectomy Family History Other Breast cancer Social History Smoking Status: Never smoker Second Hand Exposure: No; Hx Alcohol Use: No Hx Substance Use: No Preferred Language: Slovenian Communication Ability: Effective Dietetics Professor Required: No Beliefs That Will Affect Care: None marital status: Current Living Situation: Alone Current Living Situation Comment: [place] Other Information That Helps Us Care for You: No Feels Safe at Home: Yes Safety Concerns: Feels Safe At This Time Assistive Devices: Cane, Oxygen - Continuous, Walker and Wheelchair Review of Systems Constitutional: no fever and no chills Eyes: no diplopia Ear, Nose, Mouth, Throat: no ear pain Respiratory: no cough and no dyspnea Cardiovascular: no chest pain Gastrointestinal: + nausea and + vomiting; no abdominal pain Genitourinary: + dysuria, + urinary frequency and + flank pain (Left-sided) Musculoskeletal: + back pain (Left flank) Integumentary: no rash Neurologic: no localized weakness Physical Exam Constitutional: well developed and well nourished; no acute distress Eyes: no conjunctival abnormality ENMT: Ears: no hearing impairment Mouth: no oropharynx abnormality Neck: trachea midline Respiratory: normal respiratory effort; no respiratory distress and no labored breathing Cardiovascular: Rate/Rhythm: regular rate and regular rhythm Gastrointestinal (Abdomen): Soft, nontender, nondistended Musculoskeletal: No calf tenderness Skin: no rashes Neurologic: moves all extremities Psychiatric: A+Ox3, euthymic affect Genitourinary: + CVA tenderness (Left-sided) Results & Data ([place]) Vital Signs (Past 12 Hours) Vital Signs Temp Pulse Pulse Resp BP BP Pulse Ox 12/22/21 23:41 36.6 C 90 20 118/70 97 12/22/21 20:57 36.7 C 93 H 18 109/73 99 12/22/21 19:30 18 135/60 99 12/22/21 17:00 121 H 20 120/81 93 12/22/21 16:30 103 H 15 95 12/22/21 16:00 101 H 13 122/86 95 12/22/21 15:30 102 H 15 97 12/22/21 15:17 111 H 102 H 14 125/105 H 95 12/22/21 13:30 102 H 19 94 12/22/21 13:27 104 H 19 94 12/22/21 13:15 37 C 116 H 16 147/102 H 98 PG Care Time/CCT Total # of Minutes Spent Total Time Spent with Patient: Total time spent is greater than 50% in coordination of care (as documented) at patient's floor/unit and/or counseling patient: Coding Level of Care Code 75920 Inpt Consult Level 5 Diagnoses Recurrent UTI N39.0
[2021-12-23] MEDS: PROMETHAZINE HCL 12.5 MG in SODIUM CHLORIDE 0.9% 50 ML IV PRN ×3 (00:13→22:45)
[2021-12-23] MEDS: METOPROLOL TARTRATE 1 MG/ML VIAL IV SCH ×4 (00:13→18:48)
[2021-12-23] MEDS: HEPARIN SOD 5,000 UNIT/0.5 ML VIAL SQ SCH ×3 (06:10→21:59)
[2021-12-23 06:53] LABS: Hemoglobin 9.7 g/dL (12.0-16.0); Mean Corpuscular Hemoglobin 29.2 pg (25-34); Mean Corpuscular Hgb Conc 30.3 g/dL (32-36); Mean Corpuscular Volume 96.4 fL (80-100); Mean Platelet Volume 11.3 fL (7.4-10.4); Platelet Count 232 K/uL (130-400); RDW Coefficient of Variation 14.6 % (11.5-14.5); RDW Standard Deviation 51.7 fL (36.4-46.3); Red Blood Count 3.32 M/uL (4.2-5.4); White Blood Count 6.24 K/uL (4.8-10.8)
[2021-12-23 07:05] LABS: BUN Creatinine Ratio 5.9 (10-20); Calcium 8.8 mg/dl (8.5-10.1); Creatinine Clr Calc Pharmacy 18.8 ml/min; Est GFR (African American) 20.2 ml/min; Est GFR (Non-African American) 17.4 ml/min; Potassium 3.5 mmol/L (3.5-5.1)
[2021-12-23] MEDS ORDERED: METOPROLOL SUCC 50MG EXT REL TAB PO SCH (09:00)
[2021-12-23] MEDS: INSULIN ASPART PER UNIT SC SCH ×3 (09:24→17:15)
[2021-12-23] MEDS: LACTATED RINGER'S 1,000 ML IV SCH ×2 (09:26→19:32)
[2021-12-23] MEDS: PANTOprazole 40 MG TAB PO SCH ×2 (09:26→21:10)
[2021-12-23] MEDS: TAMSULOSIN HCL 0.4 MG CAP PO SCH (09:26)
--- NOTE | 2021-12-23 10:00 | Urology Progress Note ---
Date of Service December 23, 2021 Assessment & Plan (1) Acute UTI: (2) S/P ureteral stent placement: Plan: 66 yo F with multiple comorbidities admitted for intractable nausea and vomiting, suspected acute UTI, and PERRI. - Pt s/p Cystoscopy, left ureteroscopy, laser lithotripsy, stone basket extraction, and stent exchange on 11/[address] Adam. - Afebrile, nontoxic, lab work reviewed - creatinine 2.70, WBC 6.24. - CTAP on admission reviewed - notes left stent in position, no calculi along course of stent. - Urine culture and blood cultures are pending - received dose of IV Ceftriaxone in ED, then transitioned to IV Daptomycin. - Recommend treatment of acute UTI - ID has been consulted. - Recommend medical optimization. - No acute intervention planned today, okay to resume diet. - Continue supportive care, antibiotics and management per hospital medicine. - Consider intervention with left URS-LL and stent exchange vs stent removal when acute infection treated/medically optimized. - Will continue to follow. Admission and Anticipated Discharge Date Admission Date: December 22, 2021 Supervising Physician Co-Signing Physician Notes I have discussed Ms. Nesbitt's case with NICHOL Wolfe and agree with the above documentation. Subjective Patient seen and examined at bedside this AM. She is sleeping on arrival, arouses easily to her name. No acute issues overnight. She reports ongoing nausea, emesis x 1 overnight. Notes generalized abdominal and left flank discomfort. Voiding without difficulty, notes some dysuria, no hematuria. No fever or chills. Review of Systems Constitutional: as per Subjective / HPI Gastrointestinal: as per Subjective / HPI Genitourinary: as per Subjective / HPI Physical Exam Constitutional: + obese and comfortable; no acute distress Respiratory: no respiratory distress and no labored breathing O2 via nasal cannula Cardiovascular: Extremities: no pedal edema Gastrointestinal (Abdomen): Inspection/Auscultation: abdomen normal to inspection; abdomen not distended Percussion/Palpation: + abdomen tender (mild tenderness generalized) and abdomen soft; no guarding Musculoskeletal: Head/Neck/Chest: normocephalic and head atraumatic Skin: no visible rashes Neurologic: moves all extremities and awake Psychiatric: Orientation: alert and oriented x 3 Genitourinary: + CVA tenderness (mild tenderness to palpation over left flank) Results & Data ([facility]) Vital Signs (Past 12 Hours) Vital Signs Temp Pulse Pulse Pulse Resp BP BP 12/23/21 07:39 36.4 C L 61 16 12/23/21 06:11 83 83 112/78 12/23/21 02:52 36.5 C 77 16 12/23/21 00:13 90 104/74 12/23/21 00:08 90 12/22/21 23:59 94 H 12/22/21 23:41 36.6 C 90 20 118/70 BP Pulse Ox 12/23/21 07:39 104/72 100 12/23/21 06:11 112/78 12/23/21 02:52 94/61 L 99 12/23/21 00:13 12/23/21 00:08 104/74 12/22/21 23:59 12/22/21 23:41 97 PG Care Time/CCT Total # of Minutes Spent Total Time Spent with Patient: Total time spent is greater than 50% in coordination of care (as documented) at patient's floor/unit and/or counseling patient: Coding Level of Care Code 66468 Subseq Hosp Care Lvl 2 Diagnoses Acute UTI N39.0 S/P ureteral stent placement Z96.0
--- NOTE | 2021-12-23 10:36 | Hospitalist Progress Note ---
Date of Service December 23, 2021 Assessment & Plan (1) Recurrent UTI: (2) Nausea and vomiting: (3) Bilateral nephrolithiasis: Plan: Patient presented from home with reports of intractable nausea and vomiting. Recent hospitalizations for same In the ED, UA suggestive of UTI. Patient was tachycardic Got ceftriaxone in ED Daptomycin was started on admission due to h/o VRE UTI ID consult due to recurrent UTIs Urology consult given recent stent placement and renal cyst history Currently NPO per Urology in case procedure is needed. Will f/u uro plans (4) Acute kidney injury superimposed on CKD: (5) CKD (chronic kidney disease), stage III: Plan: On admission, creatinine 3.1, Baseline low-mid 1's Likely prerenal in nature due to vomiting and poor intake Continue IVF Nephrology consult Avoid nephrotoxins (6) History of TIA (transient ischemic attack): Plan: Continue clopidogrel (7) Bipolar disorder: Plan: Previously prescribed oxcarbazepine, does not seem as though patient has been taking this medication recently Likely will need outpatient follow-up with psychiatry (8) Chronic anemia: Plan: Hgb 12.7, likely hemoconcentrated due to dehydration Baseline hemoglobin ~ 8.0 Hb is 9.7 today (9) Chronic respiratory failure with hypoxia: (10) COPD (chronic obstructive pulmonary disease): Plan: On chronic 2 L of oxygen No signs of acute exacerbation Continue home inhalers (11) DM type 2 (diabetes mellitus, type 2): Plan: Hgb A1c 6.1 10/2021 Hold oral agents and utilize NovoLog per protocol while hospitalized (12) Sinus tachycardia: Plan: Controlled on metoprolol (13) CALI (obstructive sleep apnea): Plan: Had been on CPAP in the remote past, outpatient sleep study pending (14) DVT prophylaxis: Plan: SQ heparin Admission and Anticipated Discharge Date Admission Date: December 22, 2021 Subjective Patient seen and examined Reports nausea, anorexia and left sided abdominal pain (moderate, not referred) Denied any headache, dizziness, fever Denied any chest pain, cough, shortness of breath Reports dysuria. Denied freq, hematuria, urgency Denied diarrhea, vomiting Physical Exam Constitutional: + well hydrated and + obese; no acute distress Eyes: PERRL, conjunctivae normal, anicteric sclerae ENMT: external ear and nose normal, oropharynx normal Respiratory: normal respiratory effort, lungs clear to auscultation on nasal cannula Cardiovascular: Rate/Rhythm: regular rate and regular rhythm S1 S2 Gastrointestinal (Abdomen): Not distended, soft, normal bowel sounds, left sided tenderness Musculoskeletal: no cyanosis or clubbing, extremities motor strength 5/5 Neurologic: PERRL, EOMI, accommodation nl, no face palsy, no dysarthria Psychiatric: A+Ox3, euthymic affect Genitourinary: Left CVA tenderness Results & Data Results & Data ([facility]) Vital Signs (Past 12 Hours) Vital Signs Temp Pulse Pulse Pulse Resp BP BP 12/23/21 07:39 36.4 C L 61 16 12/23/21 06:11 83 83 112/78 12/23/21 02:52 36.5 C 77 16 12/23/21 00:13 90 104/74 12/23/21 00:08 90 12/22/21 23:59 94 H 12/22/21 23:41 36.6 C 90 20 118/70 BP Pulse Ox 12/23/21 07:39 104/72 100 12/23/21 06:11 112/78 12/23/21 02:52 94/61 L 99 12/23/21 00:13 12/23/21 00:08 104/74 12/22/21 23:59 12/22/21 23:41 97 Laboratory Results Abnormal lab results 12/22/21 12/22/21 12/22/21 Range/Units 15:04 15:04 17:10 WBC 11.02 H (4.8-10.8) K/uL RBC (4.2-5.4) M/uL Hgb (12.0-16.0) g/dL Hct (37-47) % MCHC 31.3 L (32-36) g/dL RDW Std Deviation 49.8 H (36.4-46.3) fL RDW Coeff of Teresa (11.5-14.5) % MPV 11.6 H (7.4-10.4) fL Neut # (Auto) 7.56 H (1.4-6.5) K/uL [place] # (Auto) 1.10 H (0.11-0.59) K/uL Immature Gran # (Auto) 0.28 H (0.00-0.02) K/uL Chloride (98-107) mmol/L Anion Gap 13 H (3-11) Creatinine 3.11 H (0.6-1.2) mg/dl BUN/Creatinine Ratio 6.1 L (10-20) Glucose 115 H (70-99(Fasting)) mg/dl Calcium 10.6 H (8.5-10.1) mg/dl AST 64 H (13-39) U/L ALT 56 H (7-52) U/L Alkaline Phosphatase 125 H (34-104) U/L Urine Appearance Turbid A (Clear) Urine Protein 3+ H (Negative) Urine Ketones Trace H (Negative) Urine Blood 2+ H (Negative) Urine Nitrite Positive A (Negative) Urine Bilirubin 1+ H (Negative) Ur Leukocyte Esterase 3+ H (Negative) Urine WBC (Auto) >30 H (0-5) /hpf Urine RBC (Auto) >30 H (0-4) /hpf U Epithel Cells (Auto) >30 H (0-5) /lpf 12/23/21 12/23/21 Range/Units 06:04 06:04 WBC (4.8-10.8) K/uL RBC 3.32 L (4.2-5.4) M/uL Hgb 9.7 L D (12.0-16.0) g/dL Hct 32.0 L (37-47) % MCHC 30.3 L (32-36) g/dL RDW Std Deviation 51.7 H (36.4-46.3) fL RDW Coeff of Teresa 14.6 H (11.5-14.5) % MPV 11.3 H (7.4-10.4) fL Neut # (Auto) (1.4-6.5) K/uL [place] # (Auto) (0.11-0.59) K/uL Immature Gran # (Auto) (0.00-0.02) K/uL Chloride 113 H (98-107) mmol/L Anion Gap (3-11) Creatinine 2.70 H D (0.6-1.2) mg/dl BUN/Creatinine Ratio 5.9 L (10-20) Glucose 104 H (70-99(Fasting)) mg/dl Calcium (8.5-10.1) mg/dl AST (13-39) U/L ALT (7-52) U/L Alkaline Phosphatase (34-104) U/L Urine Appearance (Clear) Urine Protein (Negative) Urine Ketones (Negative) Urine Blood (Negative) Urine Nitrite (Negative) Urine Bilirubin (Negative) Ur Leukocyte Esterase (Negative) Urine WBC (Auto) (0-5) /hpf Urine RBC (Auto) (0-4) /hpf U Epithel Cells (Auto) (0-5) /lpf
--- NOTE | 2021-12-23 12:03 | Nephrology Consultation ---
Date of Consultation December 23, 2021 Assessment & Plan (1) Acute kidney injury superimposed on CKD: nonoliguric prerenal acute on chronic renal failure with improvement in renal function after IVF and antibiotics. Her presenting creatinine was 3.1, baseline mid to high ones through 2021 but mostly in mid ones and most recently 1.4 on 12/14. Improved to 2.7 today. With hydration she has improved dramatically both in terms of renal function and marked improvement of all 3 cell lines in cbc < of course also on abtx w/ this improvement too. she may well have chronic interstital nephritis from stone disease or other conditions; not a renal biopsy candidate however to evaluate this -daily bmp -continue LR at 100 ml/hr -avoid nephrotoxins -f/u ID recs -f/u mild transaminitis (2) Recurrent UTI: -follow up pending cultures and continue abtx for now; f/u infectious diseases recommendations >>>note that her presenting UA has no bacteria and is contaminated with many skin cells > the inflammation on UAs may well be d/t stent -- extremely challenging in a case like this to discern infection or not but of course we need to treat as though she has UTI >>for this patient always obtain urinalysis in addition to urine cx if latter is ordered (3) Bilateral nephrolithiasis: nonobstructive at this time; urology following and appreciate input; for non emergent surgical management (4) Renal cyst: 7.2 cm thick walled cyst stable in appearance in pt with recurrent admissions, chronic symptoms; recurrent + urine cultures History of Present Illness Reason for Consultation: PERRI Requesting Physician: Dr Moore Attending Physician: Anahi Moore MD History of Present Illness 66 y/o F whom I'm asked to see for PERRI was admitted last evening for surgical management of BL nephrolithiasis after she presented w/ 12 days of intractable emesis. PMH includes chronic nephrolithiasis requiring frequent urologic interventions most recently w/ L ureteral stent 10/2021 followed by lithotripsy, stone extraction and stent exchange 11/23, recurrent UTI, DM2, colon CA s/p remote colectomy, bipolar disorder, COPD on 2L chronic 02, CKD3, CALI, TIA, HTN. Her presenting creatinine was 3.1, baseline mid to high ones through 2021 but mostly in mid ones and most recently 1.4 on 12/14. She was admitted here from 11/18-12/06/21 w/ [place] [facility]c from there 12/11. She had persistently positive urine cultures during that [facility] admission, initially Klebsiella then enterococcus then changed to VRE and concern for renal abscess/infected cyst, prompting [place] transfer. Evaluating teams at [facility] ultimately deemed imaging findings more consistent with stable renal cyst rather than abscess and sent. In the ER yesterday she was started on ceftriaxone, daptomycin, and LR at 100 ml/hr. Infectious diseases concurs w/ current [facility] regimen pending culture results as well as consideration of cyst drainage given recurrent infection hx. Urology has been following and recommends supportive care for now, for possible stent exchange versus removal once medically optimized. Pt c/o diffuse abdominal pain, worst LLQ, as well as dysuria, suprapubic pain, decreased urine output. has been taking minimal po including po meds. denies worsening respiratory status, edema. Allergies Allergy/AdvReac Type Severity Reaction Status Date / Time fentanyl Allergy Severe itching/felt Verified 11/17/21 20:25 like throat closing salicylates Allergy Severe SHORTNESS Verified 11/17/21 20:25 OF BREATH Iodinated Contrast Media Allergy Intermediate EYES Verified 11/17/21 20:25 SWELLING/Hives amoxicillin [From Augmentin] Allergy Mild Rash Verified 11/17/21 20:25 aspirin Allergy Mild FACIAL Verified 11/17/21 20:25 SWELLING clavulanic acid Allergy Mild Rash Verified 11/17/21 20:25 [From Augmentin] hydromorphone Allergy Mild RASH/ITCHIN Verified 11/17/21 20:25 G meperidine AdvReac Intermediate ITCH Verified 11/17/21 20:25 morphine AdvReac Intermediate ITCH Verified 11/17/21 20:25 tramadol AdvReac Mild itch Verified 11/17/21 20:25 Home Medications Medication Instructions Recorded Confirmed Type atorvastatin 40 mg tablet (Lipitor) 40 mg PO QPM 07/12/18 12/22/21 History clopidogrel 75 mg tablet (Plavix) 75 mg PO QPM 07/12/18 12/22/21 History pantoprazole 40 mg tablet,delayed 40 mg PO BID 07/12/18 12/22/21 History release (Protonix) riboflavin (vitamin B2) 400 mg 400 mg PO QPM 07/12/18 12/22/21 History tablet cholecalciferol (vitamin D3) 50 2,000 unit PO QAM 05/16/19 12/22/21 History mcg (2,000 unit) capsule (Vitamin D3) albuterol sulfate 90 mcg/actuation 2 puff INHALATION Q4H PRN 07/21/19 12/22/21 History aerosol inhaler magnesium oxide 400 mg PO HS 10/05/19 12/22/21 History fluticasone fur. 100 mcg-umeclid 1 inh INHALATION DAILY PRN 12/11/20 12/22/21 History 62.5 mcg-vilant 25 mcg inhalat.powder (Trelegy Ellipta) metoprolol succinate 25 mg 25 mg PO PM tab 12/11/20 12/22/21 History tablet,extended release 24 hr metoprolol succinate 50 mg 50 mg PO QAM 12/11/20 12/22/21 History tablet,extended release 24 hr glipizide 2.5 mg tablet, extended 2.5 mg PO PM 04/29/21 12/22/21 History release 24 hr (Glucotrol XL) ondansetron 4 mg disintegrating 4 mg PO Q8H PRN #10 tab 06/02/21 12/22/21 Rx tablet acetaminophen 500 mg tablet 1,000 mg PO AMHS 10/11/21 12/22/21 History (Tylenol Extra Strength) loperamide 2 mg capsule 2 mg PO TID PRN #30 cap 11/09/21 12/22/21 Rx phenazopyridine 100 mg tablet 100 mg PO TID PRN #30 tab 11/09/21 12/22/21 Rx (Pyridium) oxcarbazepine 300 mg tablet 300 mg PO BID 12/22/21 12/22/21 History oxycodone 5 mg tablet 5 mg PO BID PRN 12/22/21 12/22/21 History tamsulosin 0.4 mg capsule 0.4 mg PO DAILY 12/22/21 12/22/21 History Patient History Medical History (Updated 12/23/21 @ 19:34 by Ronda Niño MD, PhD) Anxiety Asthma well controlled per pt, rare inh use Bipolar disorder Chronic back pain Chronic headaches Chronic renal insufficiency stage 3, following with [facility] nephrology ([place]) Chronic respiratory failure with hypoxia CKD (chronic kidney disease), stage III COPD (chronic obstructive pulmonary disease) Deep vein thrombosis LLE - COULD NOT RECALL DATE - REPORTS SHE WAS TREATED AT [facility] W/ BLOOD THI NNERS Depression DM type 2 (diabetes mellitus, type 2) GERD (gastroesophageal reflux disease) History of colon cancer 2012 S/P BOWEL RESECTION. History of COVID-27 Sep 2020 History of TIA (transient ischemic attack) HTN (hypertension) Hyperlipidemia Kidney stone Myocardial Infarction 06/2016--> [facility] -- CARDIAC CATH --> normal coronary anatomy without coronary obstruction but Plavix started per [facility] discharge summary On anticoagulant therapy plavix daily CALI (obstructive sleep apnea) Poor historian Recurrent UTI Renal colic s/p L ureteral stent 10/2021 followed by lithotripsy, stone extraction and stent exchange 11/2021 Renal cyst 7 cm thick walled as of early 2021 Sinus tachycardia Follows with cardio Takotsubo cardiomyopathy History of in 2015 with return to normal LV function Surgical History H/O hand surgery RIGHT History of appendectomy History of bilateral cataract extraction History of blepharoplasty History of cardiac cath 03/2018 - [place] - DENIES STENTS/ANGIOPLASTY - [facility] - FOLLOWS W/ DR. TORRES History of closure of ileostomy History of colectomy due to colon cancer History of colonoscopy History of cystoscopy History of esophageal dilatation History of esophagogastroduodenoscopy (EGD) History of hysterectomy History of kidney surgery at age 9 yrs "something was wrong and had to fix it" History of lithotripsy History of tooth extraction History of total abdominal hysterectomy and bilateral salpingo-oophorectomy Hx of cholecystectomy Family History Other Breast cancer Social History Smoking Status: Never smoker Second Hand Exposure: No; Hx Alcohol Use: No Hx Substance Use: No Preferred Language: Serbian Communication Ability: Effective Policy Writer Sales Required: No Beliefs That Will Affect Care: None marital status: Current Living Situation: Alone Current Living Situation Comment: [facility] Other Information That Helps Us Care for You: No Feels Safe at Home: Yes Safety Concerns: Feels Safe At This Time Assistive Devices: Cane, Oxygen - Continuous, Walker and Wheelchair Review of Systems Review of Systems: All systems reviewed & are unremarkable except as noted in Subjective Physical Exam Constitutional: well developed, well nourished, + acute distress (mild distress, lying flat on 02nc), + frail appearing and cooperative Eyes: EOM intact bilaterally ENMT: Ears: no external ear abnormality Nose: no external nose abnormality Mouth: + dry oral mucous membranes Neck: no nuchal rigidity Respiratory: normal respiratory effort Auscultation: + diminished lung sounds Cardiovascular: RRR, no murmur, no edema Gastrointestinal (Abdomen): Inspection/Auscultation: normal bowel sounds Percussion/Palpation: + abdomen tender (diffuse tenderness to palpation worst LLQ), + guarding (w/ LLQ palpation) and abdomen soft; no ascites Musculoskeletal: Extremities: + abnormal strength Skin: no rashes, warm and dry Neurologic: gomez, fluent though limited speech, mild upper limb resting tremors Results & Data ([facility]) Vital Signs (Past 12 Hours) Vital Signs Temp Pulse Pulse Resp BP BP Pulse Ox 12/23/21 11:31 36.6 C 72 18 113/68 100 12/23/21 07:39 36.4 C L 61 16 104/72 100 12/23/21 06:11 83 83 112/78 112/78 12/23/21 02:52 36.5 C 77 16 94/61 L 99 12/23/21 00:13 90 104/74 12/23/21 00:08 90 104/74 12/22/21 23:59 94 H Laboratory Results 12/23/21 06:04 12/23/21 06:04 presenting UA w/ turbid dark urine, sg 1020, with no bacteria but marked inflammation and + ketonuria, >30 epithelial cells all cxs NGTD prior cxs reviewed > 11/26 UA also w/ 20-30 epithelial cells and no bacteria; no UA wiht 12/06 culture in [facility] Diagnostic Findings CT abd/pelvis non con admission Lung bases: The heart is normal in size and without pericardial effusion. There is bibasilar scarring/atelectasis. No airspace consolidation typical for pneu monia or pleural effusion is identified. There are scattered calcified granulomas. There is a moderate hiatal hernia. Liver: The unenhanced liver is normal in size, contour, and attenuation. There is no intrahepatic biliary ductal dilatation. Gallbladder: Surgically absent noting clips in the gallbladder fossa. Spleen: Normal in size and attenuation. Pancreas: The unenhanced pancreas is moderately atrophic and grossly unremarkable. Adrenal glands: Unremarkable. Kidneys: There is asymmetric cortical atrophy of the left kidney as compared the right with numerous foci of cortical scarring. There are least 4 nonobstructing left renal calculi which measure up to 10 mm. A 4 mm nonobstructing calculus is seen in the right kidney. A left ureteral stent is in appropriate position. No calcifications are identified in the left ureter along the course of the stent. Fullness of the left renal collecting system is unchanged. Infiltration around the left renal pelvis has modestly improved from previous. There is also mild stranding around the left ureter. No hydronephrosis is seen on the right. A 7.2 cm thick-walled cyst is again seen in the upper pole of the left kidney. This cyst has been present dating back to 2010. There is no gas within this cyst or the left renal collecting system. Abdominal vasculature: The abdominal aorta is normal in course and caliber noting scattered foci of atherosclerotic calcification. Bowel: There is postoperative change of subtotal colectomy with ileosigmoid anastomosis. No bowel obstruction is seen. The appendix is surgically absent. Peritoneum: There is no intraperitoneal free air or abdominal ascites. There is laxity of the ventral abdominal wall with diastases of the rectus musculature and protrusion of abdominal contents. Lymphadenopathy: None. Pelvic viscera: The bladder is decompressed and there is pericystic inflammation. The bladder contains the distal end of a left ureteral stent. The uterus is surgically absent. No adnexal lesion is identified. Skeletal structures: The skeletal structures are osteopenic. There is mild to moderate lumbosacral spondylosis. No lytic or blastic lesions are seen. IMPRESSION: 1. A left ureteral stent is unchanged in position. No calculi are identified in the left ureter along the course of the stent. 2. Fullness of the left renal pelvis is unchanged. 3. There is pericystic inflammation, as well as infiltration around the left kidney and ureter. Although this could be related to the presence of an in dwelling stent, superimposed urinary tract infection is not excluded. Correlate with clinical findings and urinalysis. The degree of inflammation around the left renal pelvis appears modestly improved as compared to 12/05/2021. 4. There is a 7.2 cm cyst identified in the upper pole of left kidney which has been present dating back to 2010. The cyst remains thick walled, and superimposed infection is not excluded. 5. Bilateral nephrolithiasis as above. 6. Moderate hiatal hernia. 7. Subtotal colectomy. 8. Additional findings as above.
[2021-12-23] MEDS: ACETAMINOPHEN 1000 MG/100 ML IV IV PRN (17:21)
[2021-12-23] MEDS: ONDANSETRON INJ 2 MG/ML 2 ML VIAL IV PRN (18:48)
--- NOTE | 2021-12-23 20:57 | Electrocardiogram Report ---
Test Reason : Blood Pressure : / mmHG Vent. Rate : 105 BPM Atrial Rate : 105 BPM P-R Int : 158 ms QRS Dur : 054 ms QT Int : 310 ms P-R-T Axes : 037 -15 051 degrees QTc Int : 409 ms Poor data quality, interpretation may be adversely affected Sinus tachycardia Minimal voltage criteria for LVH, may be normal variant Inferior infarct , age undetermined Cannot rule out Anterior infarct (cited on or before 22-DEC-2021) Abnormal ECG When compared with ECG of 23-NOV-2021 18:34, No significant change Confirmed by Kalia Puente ([id number]) on 12/23/2021 8:56:52 PM Referred By: Lo Chand Confirmed By:Kalia Puente
[2021-12-23] MEDS: CLOPIDOGREL BISULFATE 75 MG TAB PO SCH (21:10)
[2021-12-24] MEDS: INSULIN ASPART PER UNIT SC SCH ×5 (00:13→21:28)
[2021-12-24] MEDS: METOPROLOL TARTRATE 1 MG/ML VIAL IV SCH ×3 (00:25→12:06)
[2021-12-24] MEDS: LACTATED RINGER'S 1,000 ML IV SCH ×2 (06:24→16:40)
[2021-12-24] MEDS: HEPARIN SOD 5,000 UNIT/0.5 ML VIAL SQ SCH ×3 (06:28→21:29)
[2021-12-24 06:47] LABS: Hemoglobin 9.3 g/dL (12.0-16.0); Mean Corpuscular Hemoglobin 29.1 pg (25-34); Mean Corpuscular Volume 96.9 fL (80-100); Mean Platelet Volume 11.7 fL (7.4-10.4); Platelet Count 212 K/uL (130-400); RDW Coefficient of Variation 14.5 % (11.5-14.5); RDW Standard Deviation 51.4 fL (36.4-46.3); White Blood Count 6.07 K/uL (4.8-10.8)
[2021-12-24 07:13] LABS: BUN Creatinine Ratio 5.4 (10-20); Calcium 8.7 mg/dl (8.5-10.1); Creatinine Clr Calc Pharmacy 22.7 ml/min; Est GFR (African American) 25.4 ml/min; Est GFR (Non-African American) 21.9 ml/min; Magnesium 1.3 mg/dl (1.7-2.4); Potassium 3.5 mmol/L (3.5-5.1)
--- NOTE | 2021-12-24 09:45 | Urology Progress Note ---
Date of Service December 24, 2021 Assessment & Plan (1) Recurrent UTI: (2) Acute on chronic renal failure: Plan: 66 yo F with multiple comorbidities admitted for intractable nausea and vomiting, suspected acute UTI, and PERRI. - Pt s/p Cystoscopy, left ureteroscopy, laser lithotripsy, stone basket extraction, and stent exchange on 11/[address] Adam. - Afebrile, nontoxic, lab work reviewed - creatinine improved to 2.23 today, WBC 6.07. - CTAP on admission reviewed - notes left stent in position, no calculi along course of stent. - Urine culture prelim pin point growth, reincubating. - Blood cultures showing no growth x 24 hours - on IV Ceftriaxone and IV Dap tomycin, follow cultures. - Recommend treat acute UTI per hospital medicine/ID. - ID consult reviewed and there is discussion of pursuing IR for renal cyst pending cultures. - No acute intervention planned today, okay to resume diet. - Consider intervention with left URS-LL and stent exchange vs stent removal when acute infection treated/medically optimized. - Continue supportive care, antibiotics and management per hospital medicine. - Recommend continue Flomax, prn Oxybutynin and prn Pyridium if able for stent discomfort. - Will arrange outpatient follow-up with our service. - will follow peripherally, please contact our service with additional questions or concerns. Admission and Anticipated Discharge Date Admission Date: December 22, 2021 Supervising Physician Co-Signing Physician Notes Discussed patient with ELIZABETH. Agree with plan. Subjective Patient seen and examined at bedside this AM. Continues to have nausea, low appetite. Reports emesis this AM. Reports generalized lower abdominal pain and left flank pain, unchanged. She is voiding spontaneously, reports dysuria, no hematuria. Reports she has voided this AM, but then had urge to urinate again and could not. No fever or chills. Review of Systems Constitutional: as per Subjective / HPI Gastrointestinal: as per Subjective / HPI Genitourinary: as per Subjective / HPI Physical Exam Constitutional: + obese; no acute distress Respiratory: no respiratory distress and no labored breathing O2 via nasal cannula Cardiovascular: Extremities: no pedal edema Gastrointestinal (Abdomen): Inspection/Auscultation: abdomen normal to inspection; abdomen not distended Percussion/Palpation: + abdomen tender (mild tenderness generalized) and abdomen soft; no guarding Musculoskeletal: Head/Neck/Chest: normocephalic and head atraumatic Skin: no visible rashes Neurologic: moves all extremities and awake Psychiatric: Orientation: alert and oriented x 3 Genitourinary: + CVA tenderness (mild tenderness to palpation over left flank) Results & Data ([facility]) Vital Signs (Past 12 Hours) Vital Signs Temp Pulse Pulse Pulse Resp BP BP 12/24/21 07:30 76 12/24/21 07:15 36.7 C 69 18 105/70 12/24/21 06:27 74 117/78 12/24/21 06:23 74 117/78 12/24/21 02:51 36.8 C 77 16 103/67 12/24/21 01:26 80 12/24/21 00:25 72 104/71 12/24/21 00:24 72 104/71 12/23/21 23:23 36.7 C 66 16 95/65 L Pulse Ox 12/24/21 07:30 12/24/21 07:15 100 12/24/21 06:27 12/24/21 06:23 12/24/21 02:51 98 12/24/21 01:26 12/24/21 00:25 12/24/21 00:24 12/23/21 23:23 98 PG Care Time/CCT Total # of Minutes Spent Total Time Spent with Patient: Total time spent is greater than 50% in coordination of care (as documented) at patient's floor/unit and/or counseling patient: Coding Level of Care Code 50985 Subseq Hosp Care Lvl 2 Diagnoses Recurrent UTI N39.0 Acute on chronic renal failure N17.9; N18.9
[2021-12-24] MEDS: PROMETHAZINE HCL 12.5 MG in SODIUM CHLORIDE 0.9% 50 ML IV PRN ×2 (09:53→16:38)
[2021-12-24] MEDS: cefTRIAXone SODIUM 2,000 MG in DEXTROSE 5% 50 ML IV SCH (09:56)
[2021-12-24] MEDS: MAGNESIUM SULFATE / D5W 1 GM/100 ML BAG IV SCH (09:56)
[2021-12-24] MEDS: ACETAMINOPHEN 1000 MG/100 ML IV IV PRN ×2 (10:15→18:20)
[2021-12-24] MEDS: LIDOCAINE 5% 1 PATCH TD SCH (11:17)
--- NOTE | 2021-12-24 11:23 | Hospitalist Progress Note ---
Date of Service December 24, 2021 Assessment & Plan (1) Recurrent UTI: (2) Nausea and vomiting: (3) Bilateral nephrolithiasis: Plan: Patient presented from home with reports of intractable nausea and vomiting. Recent hospitalizations for same In the ED, UA suggestive of UTI. Patient was tachycardic ID recommendations noted. Patient had been transferred recently for IR eval and no procedure was recommended. Will continue medical management for now. Continue ceft and dapto for now per ID F/u cultures Discussed with Urology. No procedure planned at this time Start clears. Advance BEBO Oxybutynin daily Continue flomax Pain control. Try to avoid opioids (4) Acute kidney injury superimposed on CKD: (5) CKD (chronic kidney disease), stage III: Plan: On admission, creatinine 3.1, Baseline low-mid 1's Likely prerenal in nature due to vomiting and poor intake Cr improving, now at 2.23 Continue IVF Nephrology on board Avoid nephrotoxins Replete hypomagnesemia (6) History of TIA (transient ischemic attack): Plan: Continue clopidogrel (7) Bipolar disorder: Plan: Previously prescribed oxcarbazepine, does not seem as though patient has been taking this medication recently Likely will need outpatient follow-up with psychiatry (8) Chronic anemia: Plan: Hgb 12.7, likely hemoconcentrated due to dehydration Baseline hemoglobin ~ 8.0 Hb is 9.3 today (9) Chronic respiratory failure with hypoxia: (10) COPD (chronic obstructive pulmonary disease): Plan: On chronic 2 L of oxygen No signs of acute exacerbation Continue home inhalers (11) DM type 2 (diabetes mellitus, type 2): Plan: Hgb A1c 6.1 10/2021 Hold oral agents and utilize NovoLog per protocol while hospitalized (12) Sinus tachycardia: Plan: Controlled on metoprolol (13) CALI (obstructive sleep apnea): Plan: Had been on CPAP in the remote past, outpatient sleep study pending (14) DVT prophylaxis: Plan: SQ heparin Admission and Anticipated Discharge Date Admission Date: December 22, 2021 Subjective Patient seen and examined Continues to have nausea, anorexia and left sided abdominal pain Denied any headache, dizziness, fever Denied any chest pain, cough, shortness of breath Reports dysuria. Denied freq, hematuria, urgency Denied diarrhea, vomiting Physical Exam Constitutional: + well hydrated and + obese; no acute distress Eyes: PERRL, conjunctivae normal, anicteric sclerae ENMT: external ear and nose normal, oropharynx normal Respiratory: normal respiratory effort, lungs clear to auscultation Cardiovascular: Rate/Rhythm: regular rate and regular rhythm S1 S2 Gastrointestinal (Abdomen): Not distended, soft, normal bowel sounds, left sided tenderness Musculoskeletal: no cyanosis or clubbing, extremities motor strength 5/5 Neurologic: PERRL, EOMI, accommodation nl, no face palsy, no dysarthria Psychiatric: A+Ox3, euthymic affect Genitourinary: Left CVA tenderness Results & Data Results & Data ([facility]) Vital Signs (Past 12 Hours) Vital Signs Temp Pulse Pulse Pulse Resp BP BP 12/24/21 07:30 76 12/24/21 07:15 36.7 C 69 18 105/70 12/24/21 06:27 74 117/78 12/24/21 06:23 74 117/78 12/24/21 02:51 36.8 C 77 16 103/67 12/24/21 01:26 80 12/24/21 00:25 72 104/71 12/24/21 00:24 72 104/71 12/23/21 23:23 36.7 C 66 16 95/65 L Pulse Ox 12/24/21 07:30 12/24/21 07:15 100 12/24/21 06:27 12/24/21 06:23 12/24/21 02:51 98 12/24/21 01:26 12/24/21 00:25 12/24/21 00:24 12/23/21 23:23 98 Laboratory Results Abnormal lab results 12/24/21 12/24/21 Range/Units 06:21 06:21 RBC 3.20 L (4.2-5.4) M/uL Hgb 9.3 L (12.0-16.0) g/dL Hct 31.0 L (37-47) % MCHC 30.0 L (32-36) g/dL RDW Std Deviation 51.4 H (36.4-46.3) fL MPV 11.7 H (7.4-10.4) fL Chloride 113 H (98-107) mmol/L Creatinine 2.23 H D (0.6-1.2) mg/dl BUN/Creatinine Ratio 5.4 L (10-20) Magnesium 1.3 L (1.7-2.4) mg/dl
[2021-12-24] MEDS: OXYBUTYNIN CHLORIDE 5 MG TAB PO SCH (12:05)
[2021-12-24] MEDS: PANTOprazole 40 MG TAB PO SCH ×2 (12:07→21:43)
[2021-12-24] MEDS: TAMSULOSIN HCL 0.4 MG CAP PO SCH (12:07)
--- NOTE | 2021-12-24 19:30 | Nephrology Progress Note ---
Date of Service December 24, 2021 Assessment & Plan (1) Acute kidney injury superimposed on CKD: Plan: Further improving nonoliguric prerenal acute on chronic renal failure with improvement in renal function after IVF and antibiotics. Her presenting creatinine was 3.1, baseline mid to high ones through 2020/early 2021 but mostly in mid ones and most recently 1.4 on 12/14. Improved to 2.3 today. With hydration she has improved dramatically both in terms of renal function and marked improvement of all 3 cell lines in cbc < of course also on abtx w/ this improvement too. she may well have chronic interstital nephritis from stone disease or other conditions; not a renal biopsy candidate however to evaluate this -daily bmp -continue LR at 100 ml/hr -avoid nephrotoxins -f/u ID recs -f/u mild transaminitis (2) Recurrent UTI: Plan: -follow up pending cultures and continue abtx for now; f/u infectious diseases recommendations >>>note that her presenting UA has no bacteria and is contaminated with many skin cells > the inflammation on UAs may well be d/t stent -- extremely challenging in a case like this to discern infection or not but of course we need to treat as though she has UTI >>for this patient always obtain urinalysis in addition to urine cx if latter is ordered (3) Bilateral nephrolithiasis: Plan: nonobstructive at this time; urology following and appreciate input; for non emergent surgical management (4) Renal cyst: Plan: 7.2 cm thick walled cyst stable in appearance in pt with recurrent admissions, chronic symptoms; recurrent + urine cultures > IR drainage under consideration Admission and Anticipated Discharge Date Admission Date: December 22, 2021 Subjective Neurology evaluated the patient and recommends possible intervention once medically stabilized. Cultures remain negative to date. Patient complains of ongoing abdominal pain worse than the left abdomen. Also with nausea, significant dysuria. Review of Systems Review of Systems: All systems reviewed & are unremarkable except as noted in Subjective Physical Exam Constitutional: well developed, well nourished, + acute distress (mild distress, lying flat on 02nc), + frail appearing and cooperative Eyes: EOM intact bilaterally ENMT: Ears: no external ear abnormality Nose: no external nose abnormality Mouth: + dry oral mucous membranes Neck: no nuchal rigidity Respiratory: normal respiratory effort Auscultation: + diminished lung sounds Cardiovascular: RRR, no murmur, no edema Gastrointestinal (Abdomen): Inspection/Auscultation: normal bowel sounds Percussion/Palpation: + abdomen tender (To moderate palpation worst LLQ), + guarding (w/ LLQ palpation) and abdomen soft; no ascites Musculoskeletal: Extremities: + abnormal strength Skin: no rashes, warm and dry Neurologic: Unchanged chronic upper limb tremors, fluent speech Results & Data ([facility]) Vital Signs (Past 12 Hours) Vital Signs Temp Pulse Pulse Resp BP BP Pulse Ox 12/24/21 16:30 65 12/24/21 14:54 36.6 C 63 20 106/71 99 12/24/21 12:06 67 110/75 12/24/21 11:55 36.7 C 67 20 110/70 99 12/24/21 07:30 76 Laboratory Results 12/24/21 06:21 12/24/21 06:21
[2021-12-24] MEDS: DAPTOmycin 500 MG in SYRINGE 0 ML IV SCH (21:25)
[2021-12-24] MEDS: ONDANSETRON INJ 2 MG/ML 2 ML VIAL IV PRN (21:25)
[2021-12-24] MEDS: METOPROLOL SUCC 25MG EXT REL TAB PO SCH (21:43)
[2021-12-24] MEDS: CLOPIDOGREL BISULFATE 75 MG TAB PO SCH (21:43)
[2021-12-25] MEDS: PROMETHAZINE HCL 12.5 MG in SODIUM CHLORIDE 0.9% 50 ML IV PRN ×3 (00:28→20:03)
[2021-12-25] MEDS: LACTATED RINGER'S 1,000 ML IV SCH ×2 (04:13→14:50)
[2021-12-25] MEDS: HEPARIN SOD 5,000 UNIT/0.5 ML VIAL SQ SCH (05:55)
[2021-12-25] MEDS: ACETAMINOPHEN 1000 MG/100 ML IV IV PRN ×2 (08:16→17:42)
[2021-12-25] MEDS: INSULIN ASPART PER UNIT SC SCH ×4 (08:19→20:23)
[2021-12-25] MEDS: ONDANSETRON INJ 2 MG/ML 2 ML VIAL IV PRN ×3 (08:32→22:42)
[2021-12-25 08:46] LABS: BUN Creatinine Ratio 4.8 (10-20); Calcium 8.9 mg/dl (8.5-10.1); Creatinine Clr Calc Pharmacy 26.9 ml/min; Est GFR (African American) 31.3 ml/min; Magnesium 1.9 mg/dl (1.7-2.4); Phosphorus 3.5 mg/dl (2.5-4.9); Potassium 3.6 mmol/L (3.5-5.1)
--- NOTE | 2021-12-25 09:17 | Nephrology Progress Note ---
Date of Service December 25, 2021 Assessment & Plan (1) Acute kidney injury superimposed on CKD: Plan: Further improving nonoliguric prerenal acute on chronic renal failure with improvement in renal function after IVF and antibiotics. Her presenting creatinine was 3.1, baseline mid to high ones through 2020/early 2021 but mostly in mid ones and most recently 1.4 on 12/14. Improved to 1.9 today. With hydration as at previous admissions she has improved dramatically both in terms of renal function and marked improvement of all 3 cell lines in cbc < of course also on abtx w/ this improvement too. she may well have chronic interstitial nephritis from stone disease or other conditions; not a renal biopsy candidate however to evaluate this -daily bmp -lowered rate of LR to 50 ml/hr -avoid nephrotoxins -f/u ID recs -f/u mild transaminitis (2) Recurrent UTI: Plan: -follow up pending cultures and continue abtx for now; f/u infectious diseases recommendations. all cxs negative since presentation >>>note that her presenting UA has no bacteria and is contaminated with many skin cells > the inflammation on UAs may well be d/t stent -- extremely challenging in a case like this to discern infection or not but of course we need to treat as though she has UTI >>for this patient always obtain urinalysis in addition to urine cx if latter is ordered (3) Bilateral nephrolithiasis: Plan: nonobstructive at this time; urology following and appreciate input; for non emergent surgical management (4) Renal cyst: Plan: 7.2 cm thick walled cyst stable in appearance in pt with recurrent admissions, chronic symptoms; recurrent + urine cultures though none this admission > IR drainage under consideration Admission and Anticipated Discharge Date Admission Date: December 22, 2021 Subjective ongoing N and periumbilical pain; does not mention dysuria today; not sob Review of Systems Review of Systems: All systems reviewed & are unremarkable except as noted in Subjective Physical Exam Constitutional: well developed, well nourished, + acute distress (mild distress, lying flat on 02nc), + frail appearing and cooperative Eyes: EOM intact bilaterally ENMT: Ears: no external ear abnormality Nose: no external nose abnormality Mouth: + dry oral mucous membranes Neck: no nuchal rigidity Respiratory: normal respiratory effort Auscultation: + diminished lung sounds Cardiovascular: RRR, no murmur, no edema Gastrointestinal (Abdomen): Inspection/Auscultation: normal bowel sounds Percussion/Palpation: + abdomen tender (To moderate palpation worst LLQ), + guarding (w/ LLQ palpation) and abdomen soft; no ascites Musculoskeletal: Extremities: + abnormal strength Skin: no rashes, warm and dry Results & Data ([facility]) Vital Signs (Past 12 Hours) Vital Signs Temp Pulse Pulse Resp BP Pulse Ox 12/25/21 08:00 71 12/25/21 07:26 36.7 C 84 16 117/74 96 12/25/21 03:03 36.9 C 75 18 124/80 99 12/25/21 00:56 76 12/24/21 22:46 36.8 C 83 18 116/73 99 Laboratory Results 12/24/21 06:21 12/25/21 07:40
[2021-12-25 09:26] LABS: Bilirubin,Total 0.3 mg/dl (0.2-1.0); Total Protein 5.3 gm/dl (6.0-8.3)
[2021-12-25] MEDS: LIDOCAINE 5% 1 PATCH TD SCH (11:04)
[2021-12-25] MEDS: cefTRIAXone SODIUM 2,000 MG in DEXTROSE 5% 50 ML IV SCH (11:34)
[2021-12-25 11:46] LABS: Hematocrit (blood only) 32.2 % (37-47); Hemoglobin 9.7 g/dL (12.0-16.0); Mean Corpuscular Hemoglobin 29.4 pg (25-34); Mean Corpuscular Hgb Conc 30.1 g/dL (32-36); Mean Corpuscular Volume 97.6 fL (80-100); Mean Platelet Volume 12.7 fL (7.4-10.4); Platelet Count 180 K/uL (130-400); RDW Coefficient of Variation 14.5 % (11.5-14.5); RDW Standard Deviation 51.8 fL (36.4-46.3); White Blood Count 6.31 K/uL (4.8-10.8)
--- NOTE | 2021-12-25 11:51 | Gastrointestinal Consultation ---
Date of Consultation December 25, 2021 Assessment & Plan (1) Rectal bleed: 66 year old female with history of T2DM, dyslipidemia, COPD, CALI, COVID-19 infection in 2021, HTN, CKD, PORTER, colon CA 2010 s/p proctectomy, ileostomy, ileoproctostomy in 2010 last egd/colon in 2019 admitted w/ recurrent UTI, PERRI on CKD who notes frequent loose stools, onset yesterday and now reports small volume hematochezia. Suggests she has had this intermittently, including her last hospital admission Would check stool cultures and stool for c.diff Will arrange repeat colonoscopy, she notes she is unable to obtain ride for outpatient examination Can consider inpatient evaluation early next week pending results of stool testing Trend HGB Transfuse RBC PRN HGB < 7 Document GI output Thank you for allowing us to participate in the care of this patient. Please call with any acute changes, questions or concerns. Please see addendum below with additional recommendation from my supervising physician. Supervising Physician Co-Signing Physician Notes I saw and evaluated the patient. We were consulted for evaluation of altered bowel habits and new onset hematochezia. Patient was admitted to the hospital several days ago for complications related to a urinary tract infection. She has been on antibiotics several times over the past 4 to 6 months due to similar presentations. Her past history is notable for a subtotal colectomy as result of colorectal cancer. Physical examination No obvious distress, tremor noted Mild lower abdominal tenderness wound or peritoneal signs Impression patient presented for a urinary tract infection on antibiotics for several days now with altered bowel habits and hematochezia. Based on the history we would wonder about underlying C. difficile infection would recommend a C. difficile PCR. History of Present Illness Reason for Consultation: rectal bleeding Requesting Physician: Oscar Attending Physician: Anahi Moore MD History of Present Illness 66 year old female with history of T2DM, dyslipidemia, COPD, CALI, COVID-19 infection in 2021, HTN, CKD, PORTER, colon CA 2010 s/p proctectomy, ileostomy, ileoproctostomy in 2010 last egd/colon in 2019 admitted w/ recurrent UTI, PERRI on CKD. GI was asked to evaluate for rectal bleeding. Pt was seen and evaluated, chart reviewed. Notes she has had intermittent hematochezia since her last hospital admission. Suggests she has chronic loose stools 1-2 times daily. This acutely worsened yesterday, noting 6+ BMs, loose/watery with return of rectal bleeding. This AM, she had loose stools, only once but notes there was blood present as well. No black stools. Denies abd pain. Decreased appetite this AM but denies nausea/vomiting. No fever, chills, CP, SOB. CTAP 2021: A left ureteral stent is unchanged in position. No calculi are identified in the left ureter along the course of the stent. Fullness of the left renal pelvis is unchanged.There is pericystic inflammation, as well as infiltration around the left kidney and ureter. Although this could be related to the presence of an indwelling stent, superimposed urinary tract infection is not excluded. Correlate with clinical findings and urinalysis. The degree of inflammation around the left renal pelvis appears modestly improved as compared to 12/05/2021. There is a 7.2 cm cyst identified in the upper pole of left kidney which has been present dating back to 2010. The cyst remains thick walled, and superimposed infection is not excluded.Bilateral nephrolithiasis as above.Moderate hiatal hernia. Subtotal colectomy. EGD 2019: Gastroesophageal flap valve classified as Hill Grade IV (no fold, wide open lumen, hiatal hernia present). - Normal stomach. - Normal examined duodenum. - Dilation performed at the gastroesophageal junction. - No specimens collected. Colonoscopy 2019: The perianal and digital rectal examinations were normal. There was an ileocolonic anastamosis at 20 cm. The entire examined colon remnant was normal. The examined portion of the ileum was normal Allergies Allergy/AdvReac Type Severity Reaction Status Date / Time fentanyl Allergy Severe itching/felt Verified 11/17/21 20:25 like throat closing salicylates Allergy Severe SHORTNESS Verified 11/17/21 20:25 OF BREATH Iodinated Contrast Media Allergy Intermediate EYES Verified 11/17/21 20:25 SWELLING/Hives amoxicillin [From Augmentin] Allergy Mild Rash Verified 11/17/21 20:25 aspirin Allergy Mild FACIAL Verified 11/17/21 20:25 SWELLING clavulanic acid Allergy Mild Rash Verified 11/17/21 20:25 [From Augmentin] hydromorphone Allergy Mild RASH/ITCHIN Verified 11/17/21 20:25 G meperidine AdvReac Intermediate ITCH Verified 11/17/21 20:25 morphine AdvReac Intermediate ITCH Verified 11/17/21 20:25 tramadol AdvReac Mild itch Verified 11/17/21 20:25 Home Medications Medication Instructions Recorded Confirmed Type atorvastatin 40 mg tablet (Lipitor) 40 mg PO QPM 07/12/18 12/22/21 History clopidogrel 75 mg tablet (Plavix) 75 mg PO QPM 07/12/18 12/22/21 History pantoprazole 40 mg tablet,delayed 40 mg PO BID 07/12/18 12/22/21 History release (Protonix) riboflavin (vitamin B2) 400 mg 400 mg PO QPM 07/12/18 12/22/21 History tablet cholecalciferol (vitamin D3) 50 2,000 unit PO QAM 05/16/19 12/22/21 History mcg (2,000 unit) capsule (Vitamin D3) albuterol sulfate 90 mcg/actuation 2 puff INHALATION Q4H PRN 07/21/19 12/22/21 History aerosol inhaler magnesium oxide 400 mg PO HS 10/05/19 12/22/21 History fluticasone fur. 100 mcg-umeclid 1 inh INHALATION DAILY PRN 12/11/20 12/22/21 History 62.5 mcg-vilant 25 mcg inhalat.powder (Trelegy Ellipta) metoprolol succinate 25 mg 25 mg PO PM tab 12/11/20 12/22/21 History tablet,extended release 24 hr metoprolol succinate 50 mg 50 mg PO QAM 12/11/20 12/22/21 History tablet,extended release 24 hr glipizide 2.5 mg tablet, extended 2.5 mg PO PM 04/29/21 12/22/21 History release 24 hr (Glucotrol XL) ondansetron 4 mg disintegrating 4 mg PO Q8H PRN #10 tab 06/02/21 12/22/21 Rx tablet acetaminophen 500 mg tablet 1,000 mg PO AMHS 10/11/21 12/22/21 History (Tylenol Extra Strength) loperamide 2 mg capsule 2 mg PO TID PRN #30 cap 11/09/21 12/22/21 Rx phenazopyridine 100 mg tablet 100 mg PO TID PRN #30 tab 11/09/21 12/22/21 Rx (Pyridium) oxcarbazepine 300 mg tablet 300 mg PO BID 12/22/21 12/22/21 History oxycodone 5 mg tablet 5 mg PO BID PRN 12/22/21 12/22/21 History tamsulosin 0.4 mg capsule 0.4 mg PO DAILY 12/22/21 12/22/21 History Patient History Medical History (Updated 12/25/21 @ 12:02 by NICHOL Garnica) Anxiety Asthma well controlled per pt, rare inh use Bipolar disorder Chronic back pain Chronic headaches Chronic renal insufficiency stage 3, following with [facility] nephrology ([facility]) Chronic respiratory failure with hypoxia CKD (chronic kidney disease), stage III COPD (chronic obstructive pulmonary disease) Deep vein thrombosis LLE - COULD NOT RECALL DATE - REPORTS SHE WAS TREATED AT [facility] W/ BLOOD THINNERS Depression DM type 2 (diabetes mellitus, type 2) GERD (gastroesophageal reflux disease) History of colon cancer 2012 S/P BOWEL RESECTION. History of COVID-27 Sep 2020 History of TIA (transient ischemic attack) HTN (hypertension) Hyperlipidemia Kidney stone Myocardial Infarction 06/2016--> [facility] -- CARDIAC CATH --> normal coronary anatomy without coronary obstruction but Plavix started per [facility] discharge summary On anticoagulant therapy plavix daily CALI (obstructive sleep apnea) Poor historian Recurrent UTI Renal colic s/p L ureteral stent 10/2021 followed by lithotripsy, stone extraction and stent exchange 11/2021 Renal cyst 7 cm thick walled as of early 2021 Sinus tachycardia Follows with cardio Takotsubo cardiomyopathy History of in 2015 with return to normal LV function Surgical History H/O hand surgery RIGHT History of appendectomy History of bilateral cataract extraction History of blepharoplasty History of cardiac cath 03/2018 - [place] - DENIES STENTS/ANGIOPLASTY - [facility] - FOLLOWS W/ DR. TORRES History of closure of ileostomy History of colectomy due to colon cancer History of colonoscopy History of cystoscopy History of esophageal dilatation History of esophagogastroduodenoscopy (EGD) History of hysterectomy History of kidney surgery at age 9 yrs "something was wrong and had to fix it" History of lithotripsy History of tooth extraction History of total abdominal hysterectomy and bilateral salpingo-oophorectomy Hx of cholecystectomy Family History Other Breast cancer Social History Smoking Status: Never smoker Second Hand Exposure: No; Hx Alcohol Use: No Hx Substance Use: No Preferred Language: Romanian Communication Ability: Effective Rn Primary Care Required: No Beliefs That Will Affect Care: None marital status: Current Living Situation: Alone Current Living Situation Comment: [facility] in [facility] Other Information That Helps Us Care for You: No Feels Safe at Home: Yes Safety Concerns: Feels Safe At This Time Assistive Devices: Oxygen - Continuous and Walker Review of Systems Review of Systems: All systems reviewed & are unremarkable except as noted in HPI & below Physical Exam Constitutional: WD/WN, vitals as above Eyes: PERRL, conjunctivae normal, anicteric sclerae Respiratory: normal respiratory effort, lungs clear to auscultation Cardiovascular: RRR, no murmur, no edema Gastrointestinal (Abdomen): normal bowel sounds, soft, nontender, no hepatosplenomegaly Skin: no rashes, warm and dry Results & Data ([facility]) Vital Signs (Past 12 Hours) Vital Signs Temp Pulse Pulse Resp BP Pulse Ox 12/25/21 08:00 71 12/25/21 07:26 36.7 C 84 16 117/74 96 12/25/21 03:03 36.9 C 75 18 124/80 99 12/25/21 00:56 76 Laboratory Results 12/25/21 12/25/21 12/25/21 Range/Units 11:28 07:41 07:40 WBC 6.31 (4.8-10.8) K/uL RBC 3.30 L (4.2-5.4) M/uL Hgb 9.7 L (12.0-16.0) g/dL Hct 32.2 L (37-47) % MCV 97.6 (80-100) fL MCH 29.4 (25-34) pg MCHC 30.1 L (32-36) g/dL RDW Std Deviation 51.8 H (36.4-46.3) fL RDW Coeff of Teresa 14.5 (11.5-14.5) % Plt Count 180 (130-400) K/uL MPV 12.7 H (7.4-10.4) fL Sodium (136-145) mmol/L Potassium (3.5-5.1) mmol/L Chloride (98-107) mmol/L Carbon Dioxide (21-32) mmol/L Anion Gap (3-11) BUN (6-23) mg/dl Creatinine (0.6-1.2) mg/dl Est Cr Clr Drug Dosing ml/min Est GFR ( Amer) ml/min Est GFR (Non-Af Amer) ml/min BUN/Creatinine Ratio (10-20) Glucose (70-99(Fasting)) mg/dl POC Glucose 95 (70-99) mg/dl Calcium (8.5-10.1) mg/dl Phosphorus (2.5-4.9) mg/dl Magnesium (1.7-2.4) mg/dl Total Bilirubin 0.3 (0.2-1.0) mg/dl Direct Bilirubin 0.0 (0-0.2) mg/dl AST 24 (13-39) U/L ALT 25 (7-52) U/L Alkaline Phosphatase 88 (34-104) U/L Total Protein 5.3 L (6.0-8.3) gm/dl Albumin 3.0 L (3.4-5.0) gm/dl 12/25/21 12/25/21 12/24/21 Range/Units 07:40 07:37 20:13 WBC (4.8-10.8) K/uL RBC (4.2-5.4) M/uL Hgb (12.0-16.0) g/dL Hct (37-47) % MCV (80-100) fL MCH (25-34) pg MCHC (32-36) g/dL RDW Std Deviation (36.4-46.3) fL RDW Coeff of Teresa (11.5-14.5) % Plt Count (130-400) K/uL MPV (7.4-10.4) fL Sodium 140 (136-145) mmol/L Potassium 3.6 (3.5-5.1) mmol/L Chloride 112 H (98-107) mmol/L Carbon Dioxide 21 (21-32) mmol/L Anion Gap 7 (3-11) BUN 9 (6-23) mg/dl Creatinine 1.88 H D (0.6-1.2) mg/dl Est Cr Clr Drug Dosing 26.9 ml/min Est GFR ( Amer) 31.3 ml/min Est GFR (Non-Af Amer) 27.0 ml/min BUN/Creatinine Ratio 4.8 L (10-20) Glucose 92 (70-99(Fasting)) mg/dl POC Glucose 97 102 H (70-99) mg/dl Calcium 8.9 (8.5-10.1) mg/dl Phosphorus 3.5 (2.5-4.9) mg/dl Magnesium 1.9 (1.7-2.4) mg/dl Total Bilirubin (0.2-1.0) mg/dl Direct Bilirubin (0-0.2) mg/dl AST (13-39) U/L ALT (7-52) U/L Alkaline Phosphatase (34-104) U/L Total Protein (6.0-8.3) gm/dl Albumin (3.4-5.0) gm/dl 12/24/21 Range/Units 16:40 WBC (4.8-10.8) K/uL RBC (4.2-5.4) M/uL Hgb (12.0-16.0) g/dL Hct (37-47) % MCV (80-100) fL MCH (25-34) pg MCHC (32-36) g/dL RDW Std Deviation (36.4-46.3) fL RDW Coeff of Teresa (11.5-14.5) % Plt Count (130-400) K/uL MPV (7.4-10.4) fL Sodium (136-145) mmol/L Potassium (3.5-5.1) mmol/L Chloride (98-107) mmol/L Carbon Dioxide (21-32) mmol/L Anion Gap (3-11) BUN (6-23) mg/dl Creatinine (0.6-1.2) mg/dl Est Cr Clr Drug Dosing ml/min Est GFR ( Amer) ml/min Est GFR (Non-Af Amer) ml/min BUN/Creatinine Ratio (10-20) Glucose (70-99(Fasting)) mg/dl POC Glucose 90 (70-99) mg/dl Calcium (8.5-10.1) mg/dl Phosphorus (2.5-4.9) mg/dl Magnesium (1.7-2.4) mg/dl Total Bilirubin (0.2-1.0) mg/dl Direct Bilirubin (0-0.2) mg/dl AST (13-39) U/L ALT (7-52) U/L Alkaline Phosphatase (34-104) U/L Total Protein (6.0-8.3) gm/dl Albumin (3.4-5.0) gm/dl
[2021-12-25] MEDS: OXYBUTYNIN CHLORIDE 5 MG TAB PO SCH (12:29)
[2021-12-25] MEDS: METOPROLOL SUCC 50MG EXT REL TAB PO SCH (12:29)
[2021-12-25] MEDS: PANTOprazole 40 MG TAB PO SCH ×2 (12:30→22:26)
[2021-12-25] MEDS: TAMSULOSIN HCL 0.4 MG CAP PO SCH (12:30)
--- NOTE | 2021-12-25 13:19 | Hospitalist Progress Note ---
Date of Service December 25, 2021 Assessment & Plan (1) Recurrent UTI: (2) Nausea and vomiting: (3) Bilateral nephrolithiasis: Plan: Patient presented from home with reports of intractable nausea and vomiting. Recent hospitalizations for same In the ED, UA suggestive of UTI. Patient was tachycardic ID recommendations noted. Patient had been transferred recently for IR eval and no procedure was recommended. Will continue medical management for now. Continue ceft and dapto for now per ID Urine culture grew multiple agnes likely contaminant. Repeat urine culture (clean catch) RN notified Urologist recommendations appreciated Oxybutynin daily Continue flomax Pain control. Try to avoid opioids if possible Hematochezia Patient reported blood in BM since yesterday RN reported some blood in BM today GI consult (4) Acute kidney injury superimposed on CKD: (5) CKD (chronic kidney disease), stage III: Plan: On admission, creatinine 3.1, Baseline low-mid 1's Likely prerenal in nature due to vomiting and poor intake Cr improving, now at 1.88 Continue IVF Nephrology on board Avoid nephrotoxins Replete hypomagnesemia (6) History of TIA (transient ischemic attack): Plan: Continue clopidogrel (7) Bipolar disorder: Plan: Previously prescribed oxcarbazepine, does not seem as though patient has been taking this medication recently Likely will need outpatient follow-up with psychiatry (8) Chronic anemia: Plan: Hgb 12.7, likely hemoconcentrated due to dehydration Baseline hemoglobin ~ 8.0 Hb is 9.7 today (9) Chronic respiratory failure with hypoxia: (10) COPD (chronic obstructive pulmonary disease): Plan: On chronic 2 L of oxygen No signs of acute exacerbation Continue home inhalers (11) DM type 2 (diabetes mellitus, type 2): Plan: Hgb A1c 6.1 10/2021 Hold oral agents and utilize NovoLog per protocol while hospitalized (12) Sinus tachycardia: Plan: Controlled on metoprolol (13) CALI (obstructive sleep apnea): Plan: Had been on CPAP in the remote past, outpatient sleep study pending (14) DVT prophylaxis: Plan: SQ heparin held SCD Admission and Anticipated Discharge Date Admission Date: December 22, 2021 Subjective Patient seen and examined Continues to have nausea, anorexia and left sided abdominal pain Denied any headache, dizziness, fever Denied any chest pain, cough, shortness of breath Reports dysuria. Denied freq, hematuria, urgency Reported multiple BM yesterday with some blood in it Physical Exam Constitutional: + well hydrated and + obese; no acute distress Eyes: PERRL, conjunctivae normal, anicteric sclerae ENMT: external ear and nose normal, oropharynx normal Respiratory: normal respiratory effort, lungs clear to auscultation Cardiovascular: Rate/Rhythm: regular rate and regular rhythm S1 S2 Gastrointestinal (Abdomen): Not distended, soft, normal bowel sounds, left sided tenderness Musculoskeletal: no cyanosis or clubbing, extremities motor strength 5/5 Neurologic: PERRL, EOMI, accommodation nl, no face palsy, no dysarthria Psychiatric: A+Ox3, euthymic affect Results & Data Results & Data ([facility]) Vital Signs (Past 12 Hours) Vital Signs Temp Pulse Pulse Resp BP Pulse Ox 12/25/21 08:00 71 12/25/21 07:26 36.7 C 84 16 117/74 96 12/25/21 03:03 36.9 C 75 18 124/80 99 Laboratory Results Abnormal lab results 12/24/21 12/25/21 12/25/21 Range/Units 20:13 07:40 07:40 RBC (4.2-5.4) M/uL Hgb (12.0-16.0) g/dL Hct (37-47) % MCHC (32-36) g/dL RDW Std Deviation (36.4-46.3) fL MPV (7.4-10.4) fL Chloride 112 H (98-107) mmol/L Creatinine 1.88 H D (0.6-1.2) mg/dl BUN/Creatinine Ratio 4.8 L (10-20) POC Glucose 102 H (70-99) mg/dl Total Protein 5.3 L (6.0-8.3) gm/dl Albumin 3.0 L (3.4-5.0) gm/dl 12/25/21 Range/Units 07:41 RBC 3.30 L (4.2-5.4) M/uL Hgb 9.7 L (12.0-16.0) g/dL Hct 32.2 L (37-47) % MCHC 30.1 L (32-36) g/dL RDW Std Deviation 51.8 H (36.4-46.3) fL MPV 12.7 H (7.4-10.4) fL Chloride (98-107) mmol/L Creatinine (0.6-1.2) mg/dl BUN/Creatinine Ratio (10-20) POC Glucose (70-99) mg/dl Total Protein (6.0-8.3) gm/dl Albumin (3.4-5.0) gm/dl
[2021-12-25] MEDS: METOPROLOL SUCC 25MG EXT REL TAB PO SCH (22:26)
[2021-12-25] MEDS: CLOPIDOGREL BISULFATE 75 MG TAB PO SCH (22:26)
[2021-12-26 00:23] LABS: Adenovirus F 40/41 PCR Not Detected (NotDetected); Astrovirus PCR Not Detected (NotDetected); Campylobacter PCR Not Detected (NotDetected); Clostridium diff Toxin A/B PCR Not Detected (NotDetected); Cryptosporidium PCR Not Detected (NotDetected); Cyclospora cayetanensis PCR Not Detected (NotDetected); Entamoeba histolytica PCR Not Detected (NotDetected); Enteroaggregative E.coli(EAEC) Not Detected (NotDetected); Enteropathogenic E.coli (EPEC) Not Detected (NotDetected); Enterotoxigenic E.coli (ETEC) Not Detected (NotDetected); Giardia lamblia PCR Not Detected (NotDetected); Norovirus GI/GII PCR Not Detected (NotDetected); Plesiomonas shigelloides PCR Not Detected (NotDetected); Rotavirus A PCR Not Detected (NotDetected); Salmonella PCR Not Detected (NotDetected); Sapovirus PCR Not Detected (NotDetected); Shiga-like Toxin E.coli (STEC) Not Detected (NotDetected); Shigella/Enteroinvasive E.coli Not Detected (NotDetected); Vibrio cholerae PCR Not Detected (NotDetected); Vibrio species PCR Not Detected (NotDetected); Yersinia enterocolitica PCR Not Detected (NotDetected)
[2021-12-26] MEDS: ACETAMINOPHEN 1000 MG/100 ML IV IV PRN (02:39)
[2021-12-26] MEDS: INSULIN ASPART PER UNIT SC SCH ×4 (08:41→20:43)
[2021-12-26] MEDS: ONDANSETRON INJ 2 MG/ML 2 ML VIAL IV PRN ×2 (08:49→18:01)
[2021-12-26] MEDS: cefTRIAXone SODIUM 2,000 MG in DEXTROSE 5% 50 ML IV SCH (08:53)
[2021-12-26] MEDS: LIDOCAINE 5% 1 PATCH TD SCH (08:53)
[2021-12-26] MEDS: OXYBUTYNIN CHLORIDE 5 MG TAB PO SCH (08:54)
[2021-12-26] MEDS: TAMSULOSIN HCL 0.4 MG CAP PO SCH (08:54)
[2021-12-26] MEDS: METOPROLOL SUCC 50MG EXT REL TAB PO SCH (08:54)
[2021-12-26] MEDS: PANTOprazole 40 MG TAB PO SCH ×2 (08:54→20:45)
[2021-12-26 09:53] LABS: Hematocrit (blood only) 31.9 % (37-47); Hemoglobin 9.8 g/dL (12.0-16.0); Mean Corpuscular Hemoglobin 29.3 pg (25-34); Mean Corpuscular Volume 95.5 fL (80-100); Mean Platelet Volume 10.9 fL (7.4-10.4); Platelet Count 203 K/uL (130-400); RDW Coefficient of Variation 14.3 % (11.5-14.5); RDW Standard Deviation 49.4 fL (36.4-46.3); Red Blood Count 3.34 M/uL (4.2-5.4); White Blood Count 6.86 K/uL (4.8-10.8)
[2021-12-26 09:59] LABS: Mean Corpuscular Hgb Conc 30.7 g/dL (32-36)
[2021-12-26 10:23] LABS: BUN Creatinine Ratio 3.9 (10-20); Creatinine Clr Calc Pharmacy 28.4 ml/min; Est GFR (African American) 33.4 ml/min; Est GFR (Non-African American) 28.8 ml/min; Potassium 3.4 mmol/L (3.5-5.1)
[2021-12-26] MEDS ORDERED: CYCLOBENZAPRINE HCL 10 MG TAB PO STA (10:43)
--- NOTE | 2021-12-26 10:50 | Hospitalist Progress Note ---
Date of Service December 26, 2021 Assessment & Plan (1) Recurrent UTI: (2) Nausea and vomiting: (3) Bilateral nephrolithiasis: Plan: Patient presented from home with reports of intractable nausea and vomiting. Recent hospitalizations for same In the ED, UA suggestive of UTI. Patient was tachycardic ID recommendations noted. Patient had been transferred recently for IR eval and no procedure was recommended. Will continue medical management for now. Continue ceft and dapto for now per ID Urine culture grew multiple agnes likely contaminant. Follow up repeat urine culture Urologist recommendations appreciated Oxybutynin daily Continue flomax Pain control. Patient's PCP had called on 12/25/21. She reported patient has transport problems for outpatient apts. She also agreed with trying to avoid opioids as patient was on opioid for sometime in the past and was successfully weaned off Trial of flexeril Hematochezia resolved GI eval appreciated C diff negative (4) Acute kidney injury superimposed on CKD: (5) CKD (chronic kidney disease), stage III: Plan: On admission, creatinine 3.1, Baseline low-mid 1's Likely prerenal in nature due to vomiting and poor intake Cr improving, now at 1.78 Continue IVF Nephrology on board Avoid nephrotoxins Replete hypomagnesemia (6) History of TIA (transient ischemic attack): Plan: Continue clopidogrel (7) Bipolar disorder: Plan: Previously prescribed oxcarbazepine, does not seem as though patient has been taking this medication recently Likely will need outpatient follow-up with psychiatry (8) Chronic anemia: Plan: Hgb 12.7, likely hemoconcentrated due to dehydration Baseline hemoglobin ~ 8.0 Hb is 9.8 today (9) Chronic respiratory failure with hypoxia: (10) COPD (chronic obstructive pulmonary disease): Plan: On chronic 2 L of oxygen No signs of acute exacerbation Continue home inhalers (11) DM type 2 (diabetes mellitus, type 2): Plan: Hgb A1c 6.1 10/2021 Hold oral agents and utilize NovoLog per protocol while hospitalized (12) Sinus tachycardia: Plan: Controlled on metoprolol (13) CALI (obstructive sleep apnea): Plan: Had been on CPAP in the remote past, outpatient sleep study pending (14) DVT prophylaxis: Plan: SQ heparin held due to hematochezia. Will monitor SCD Admission and Anticipated Discharge Date Admission Date: December 22, 2021 Subjective Patient seen and examined Continues to have nausea, anorexia and left sided abdominal pain Denied any headache, dizziness, fever Denied any chest pain, cough, shortness of breath Reports dysuria. Denied freq, hematuria, urgency Reported no blood in BM today Physical Exam Constitutional: + well hydrated and + obese; no acute distress Eyes: PERRL, conjunctivae normal, anicteric sclerae ENMT: external ear and nose normal, oropharynx normal Respiratory: normal respiratory effort, lungs clear to auscultation Cardiovascular: Rate/Rhythm: regular rate and regular rhythm S1 S2 Gastrointestinal (Abdomen): Inspection/Auscultation: abdomen normal to inspection and normal bowel sounds; abdomen not distended Left abd tenderness Musculoskeletal: no cyanosis or clubbing, extremities motor strength 5/5 Neurologic: PERRL, EOMI, accommodation nl, no face palsy, no dysarthria Psychiatric: A+Ox3, euthymic affect Results & Data Results & Data ([facility]) Vital Signs (Past 12 Hours) Vital Signs Temp Pulse Pulse Resp BP Pulse Ox 12/26/21 10:41 36.7 C 74 18 122/78 98 12/26/21 10:36 82 12/26/21 07:12 36.8 C 82 18 116/76 96 12/26/21 03:25 36.8 C 86 20 133/83 98 12/25/21 23:41 86 Laboratory Results Abnormal lab results 12/26/21 12/26/21 12/26/21 Range/Units 09:40 09:40 11:32 RBC 3.34 L (4.2-5.4) M/uL Hgb 9.8 L (12.0-16.0) g/dL Hct 31.9 L (37-47) % MCHC 30.7 L (32-36) g/dL RDW Std Deviation 49.4 H (36.4-46.3) fL MPV 10.9 H (7.4-10.4) fL Potassium 3.4 L (3.5-5.1) mmol/L Chloride 111 H (98-107) mmol/L Creatinine 1.78 H (0.6-1.2) mg/dl BUN/Creatinine Ratio 3.9 L (10-20) Glucose 101 H (70-99(Fasting)) mg/dl POC Glucose 104 H (70-99) mg/dl
[2021-12-26] MEDS: LACTATED RINGER'S 1,000 ML IV SCH (11:20)
[2021-12-26] MEDS: PROMETHAZINE HCL 12.5 MG in SODIUM CHLORIDE 0.9% 50 ML IV PRN ×2 (11:26→20:44)
[2021-12-26] MEDS: DAPTOmycin 500 MG in SYRINGE 0 ML IV SCH (20:44)
[2021-12-26] MEDS: CLOPIDOGREL BISULFATE 75 MG TAB PO SCH (20:45)
[2021-12-26] MEDS: METOPROLOL SUCC 25MG EXT REL TAB PO SCH (20:45)
[2021-12-27] MEDS: PROMETHAZINE HCL 12.5 MG in SODIUM CHLORIDE 0.9% 50 ML IV PRN ×2 (04:48→08:38)
[2021-12-27] MEDS: LACTATED RINGER'S 1,000 ML IV SCH (05:38)
[2021-12-27 08:26] LABS: Hematocrit (blood only) 30.6 % (37-47); Hemoglobin 9.4 g/dL (12.0-16.0); Mean Corpuscular Hemoglobin 29.5 pg (25-34); Mean Corpuscular Hgb Conc 30.7 g/dL (32-36); Mean Corpuscular Volume 95.9 fL (80-100); Mean Platelet Volume 11.1 fL (7.4-10.4); Platelet Count 203 K/uL (130-400); RDW Coefficient of Variation 14.4 % (11.5-14.5); RDW Standard Deviation 50.7 fL (36.4-46.3); Red Blood Count 3.19 M/uL (4.2-5.4); White Blood Count 6.72 K/uL (4.8-10.8)
[2021-12-27] MEDS: INSULIN ASPART PER UNIT SC SCH ×4 (08:39→21:34)
[2021-12-27] MEDS: METOPROLOL SUCC 50MG EXT REL TAB PO SCH ×2 (08:39→11:49)
[2021-12-27] MEDS: OXYBUTYNIN CHLORIDE 5 MG TAB PO SCH ×2 (08:39→11:48)
[2021-12-27] MEDS: PANTOprazole 40 MG TAB PO SCH ×3 (08:39→21:35)
[2021-12-27] MEDS: TAMSULOSIN HCL 0.4 MG CAP PO SCH ×2 (08:40→11:48)
[2021-12-27 08:45] LABS: BUN Creatinine Ratio 4.5 (10-20); Calcium 8.9 mg/dl (8.5-10.1); Creatinine Clr Calc Pharmacy 32.4 ml/min; Est GFR (African American) 39.2 ml/min; Est GFR (Non-African American) 33.8 ml/min; Potassium 3.4 mmol/L (3.5-5.1)
[2021-12-27] MEDS ORDERED: PROMETHAZINE HCL 12.5 MG in SODIUM CHLORIDE 0.9% 50 ML IV SCH (10:00)
[2021-12-27] MEDS ORDERED: FOSAPREPITANT DIMEGLUMINE 150 MG in SODIUM CHLORIDE 0.9% 145 ML IV ONE (10:00)
[2021-12-27] MEDS: cefTRIAXone SODIUM 2,000 MG in DEXTROSE 5% 50 ML IV SCH (10:12)
[2021-12-27] MEDS: LIDOCAINE 5% 1 PATCH TD SCH (10:13)
--- NOTE | 2021-12-27 10:14 | Hospitalist Progress Note ---
Date of Service December 27, 2021 Assessment & Plan (1) Recurrent UTI: (2) Nausea and vomiting: (3) Bilateral nephrolithiasis: Plan: Patient presented from home with reports of intractable nausea and vomiting. Recent hospitalizations for same In the ED, UA suggestive of UTI. Patient was tachycardic ID recommendations noted. Patient had been transferred recently for IR eval and no procedure was recommended. Will continue medical management for now. On ceft and dapto Urine culture grew multiple agnes likely contaminant. Follow up repeat urine culture Will reeval patient with ID and urology tomorrow Patient's PCP had called on 12/25/21. She reported patient has transport problems for outpatient apts. She also agreed with trying to avoid opioids as patient was on opioid for sometime in the past and was successfully weaned off Patient had refused some meds in the past 24h due to intermittent nausea Repeat CT abd/p didn't show any significant change from one on admission Change promethazine to schedule for now Continue prn zofran Will give on dose of emend Hematochezia resolved GI eval appreciated C diff negative (4) Acute kidney injury superimposed on CKD: (5) CKD (chronic kidney disease), stage III: Plan: On admission, creatinine 3.1, Baseline low-mid 1's Likely prerenal in nature due to vomiting and poor intake Cr improving, now at 1.56 Continue IVF Nephrology on board Avoid nephrotoxins (6) History of TIA (transient ischemic attack): Plan: Continue clopidogrel (7) Bipolar disorder: Plan: Previously prescribed oxcarbazepine, does not seem as though patient has been taking this medication recently Likely will need outpatient follow-up with psychiatry (8) Chronic anemia: Plan: Hgb 12.7, likely hemoconcentrated due to dehydration Baseline hemoglobin ~ 8.0 Hb is 9.4 today (9) Chronic respiratory failure with hypoxia: (10) COPD (chronic obstructive pulmonary disease): Plan: On chronic 2 L of oxygen No signs of acute exacerbation Continue home inhalers (11) DM type 2 (diabetes mellitus, type 2): Plan: Hgb A1c 6.1 10/2021 Hold oral agents and utilize NovoLog per protocol while hospitalized (12) Sinus tachycardia: Plan: Controlled on metoprolol (13) CALI (obstructive sleep apnea): Plan: Had been on CPAP in the remote past, outpatient sleep study pending (14) DVT prophylaxis: Plan: SQ heparin held due to hematochezia. Will monitor SCD Admission and Anticipated Discharge Date Admission Date: December 22, 2021 Subjective Patient seen and examined Patient continues to report nausea, anorexia and left sided abdominal pain Denied any headache, dizziness, fever Denied any chest pain, cough, shortness of breath Reports dysuria. Denied freq, hematuria, urgency No hematochezia today Physical Exam Constitutional: + well hydrated and + obese; no acute distress Eyes: PERRL, conjunctivae normal, anicteric sclerae ENMT: external ear and nose normal, oropharynx normal Respiratory: normal respiratory effort, lungs clear to auscultation Cardiovascular: Rate/Rhythm: regular rate and regular rhythm S1 S2 Gastrointestinal (Abdomen): Inspection/Auscultation: abdomen normal to inspection and normal bowel sounds; abdomen not distended Left abdominal tenderness, no rebound, normal bowel sounds Musculoskeletal: no cyanosis or clubbing, extremities motor strength 5/5 Neurologic: PERRL, EOMI, accommodation nl, no face palsy, no dysarthria Psychiatric: A+Ox3, euthymic affect Results & Data Results & Data ([facility]) Vital Signs (Past 12 Hours) Vital Signs Temp Pulse Pulse Resp BP Pulse Ox 12/27/21 09:53 80 12/27/21 07:30 36.6 C 84 18 114/56 L 98 12/27/21 04:09 36.6 C 76 20 120/78 98 12/27/21 01:01 77 12/26/21 23:28 36.7 C 84 20 121/76 99 Laboratory Results Abnormal lab results 12/27/21 12/27/21 Range/Units 08:14 08:14 RBC 3.19 L (4.2-5.4) M/uL Hgb 9.4 L (12.0-16.0) g/dL Hct 30.6 L (37-47) % MCHC 30.7 L (32-36) g/dL RDW Std Deviation 50.7 H (36.4-46.3) fL MPV 11.1 H (7.4-10.4) fL Potassium 3.4 L (3.5-5.1) mmol/L Chloride 112 H (98-107) mmol/L Creatinine 1.56 H (0.6-1.2) mg/dl BUN/Creatinine Ratio 4.5 L (10-20) Diagnostic Findings CT SCAN OF THE ABDOMEN AND PELVIS WITHOUT IV CONTRAST CLINICAL HISTORY: Left flank pain. COMPARISON STUDY: Prior abdominal CT scans, most recently dated 12/22/2021. TECHNIQUE: CT scan of the abdomen and pelvis is performed from the lung bases to the proximal femora. Images are reviewed in the axial, sagittal, and coronal planes. IV contrast was not administered for this examination. Note that the examination was performed in significantly suboptimal fashion without IV contrast. A dose lowering technique was utilized adhering to the principles of ALARA. CT DOSE: 761.56 mGy.cm FINDINGS: Lung bases: The heart is normal in size and without pericardial effusion. There is bibasilar scarring/atelectasis. No airspace consolidation typical for pneumonia or pleural effusion is identified. There are scattered calcified granulomas. There is a moderate hiatal hernia. Liver: The unenhanced liver is normal in size, contour, and attenuation. There is no intrahepatic biliary ductal dilatation. Gallbladder: Surgically absent noting clips in the gallbladder fossa. Spleen: Normal in size and attenuation. Pancreas: The unenhanced pancreas is moderately atrophic and grossly unremarkable. Adrenal glands: Unremarkable. Kidneys: There is asymmetric cortical atrophy of the left kidney as compared the right with numerous foci of cortical scarring. There are least 4 nonobstructing left renal calculi which measure up to 10 mm. A 4 mm nonobstructing calculus is seen in the right kidney. A left ureteral stent is in appropriate position. No calcifications are identified in the left ureter along the course of the stent. Fullness of the left renal collecting system is unchanged. Infiltration around the left renal pelvis is unchanged. There is also mild stranding around the left ureter. No hydronephrosis is seen on the right. A 7.2 cm thick-walled cyst is again seen in the upper pole of the left kidney. This cyst has been present dating back to 2010. There is no gas within this cyst or the left renal collecting system. Abdominal vasculature: The abdominal aorta is normal in course and caliber noting scattered foci of atherosclerotic calcification. Bowel: There is postoperative change of subtotal colectomy with ileosigmoid anastomosis. No bowel obstruction is seen. The appendix is surgically absent. Peritoneum: There is no intraperitoneal free air or abdominal ascites. There is laxity of the ventral abdominal/pelvic wall with diastases of the rectus musculature and protrusion of abdominal contents. Lymphadenopathy: None. Pelvic viscera: The bladder is decompressed and there is pericystic inflammation. The bladder contains the distal end of a left ureteral stent. The uterus is surgically absent. No adnexal lesion is identified. Skeletal structures: The skeletal structures are osteopenic. There is mild to moderate lumbosacral spondylosis. No lytic or blastic lesions are seen. IMPRESSION: 1. No significant change from 12/22/2021. 2. A left ureteral stent is unchanged in position. No calculi are identified in the left ureter along the course of the stent. 3. Fullness of the left renal pelvis is unchanged. 4. There is pericystic inflammation, as well as infiltration around the left kidney and ureter. Although this could be related to the presence of an indwelling stent, superimposed urinary tract infection is not excluded. Correlate with clinical findings and urinalysis. The degree of inflammation around the left renal pelvis is unchanged from 12/22/2021. 5. There is a 7.2 cm cyst identified in the upper pole of left kidney which has been present dating back to 2010. The cyst remains thick walled, and superimposed infection is not excluded. 6. Bilateral nephrolithiasis as above. 7. Moderate hiatal hernia. 8. Subtotal colectomy. 9. Additional findings as above.
--- NOTE | 2021-12-27 11:05 | CT Scan Report ---
CT SCAN OF THE ABDOMEN AND PELVIS WITHOUT IV CONTRAST CLINICAL HISTORY: Left flank pain. COMPARISON STUDY: Prior abdominal CT scans, most recently dated 12/22/2021. TECHNIQUE: CT scan of the abdomen and pelvis is performed from the lung bases to the proximal femora. Images are reviewed in the axial, sagittal, and coronal planes. IV contrast was not administered for this examination. Note that the examination was performed in significantly suboptimal fashion withou t IV contrast. A dose lowering technique was utilized adhering to the principles of ALARA. CT DOSE: 761.56 mGy.cm FINDINGS: Lung bases: The heart is normal in size and without pericardial effusion. There is bibasilar scarring /atelectasis. No airspace consolidation typical for pneumonia or pleural effusion is identified. Ther e are scattered calcified granulomas. There is a moderate hiatal hernia. Liver: The unenhanced liver is normal in size, contour, and attenuation. There is no intrahepatic george iary ductal dilatation. Gallbladder: Surgically absent noting clips in the gallbladder fossa. Spleen: Normal in size and attenuation. Pancreas: The unenhanced pancreas is moderately atrophic and grossly unremarkable. Adrenal glands: Unremarkable. Kidneys: There is asymmetric cortical atrophy of the left kidney as compared the right with numerous foci of cortical scarring. There are least 4 nonobstructing left renal calculi which measure up to 10 mm. A 4 mm nonobstructing calculus is seen in the right kidney. A left ureteral stent is in appropri ate position. No calcifications are identified in the left ureter along the course of the stent. Full ness of the left renal collecting system is unchanged. Infiltration around the left renal pelvis is u nchanged. There is also mild stranding around the left ureter. No hydronephrosis is seen on the right . A 7.2 cm thick-walled cyst is again seen in the upper pole of the left kidney. This cyst has been p resent dating back to 2010. There is no gas within this cyst or the left renal collecting system. Abdominal vasculature: The abdominal aorta is normal in course and caliber noting scattered foci of a therosclerotic calcification. Bowel: There is postoperative change of subtotal colectomy with ileosigmoid anastomosis. No bowel obs truction is seen. The appendix is surgically absent. Peritoneum: There is no intraperitoneal free air or abdominal ascites. There is laxity of the ventral abdominal/pelvic wall with diastases of the rectus musculature and protrusion of abdominal contents. Lymphadenopathy: None. Pelvic viscera: The bladder is decompressed and there is pericystic inflammation. The bladder contain s the distal end of a left ureteral stent. The uterus is surgically absent. No adnexal lesion is iden tified. Skeletal structures: The skeletal structures are osteopenic. There is mild to moderate lumbosacral sp ondylosis. No lytic or blastic lesions are seen. IMPRESSION: 1. No significant change from 12/22/2021. 2. A left ureteral stent is unchanged in position. No calculi are identified in the left ureter along the course of the stent. 3. Fullness of the left renal pelvis is unchanged. 4. There is pericystic inflammation, as well as infiltration around the left kidney and ureter. Altho ugh this could be related to the presence of an indwelling stent, superimposed urinary tract infectio n is not excluded. Correlate with clinical findings and urinalysis. The degree of inflammation around the left renal pelvis is unchanged from 12/22/2021. 5. There is a 7.2 cm cyst identified in the upper pole of left kidney which has been present dating b ack to 2010. The cyst remains thick walled, and superimposed infection is not excluded. 6. Bilateral nephrolithiasis as above. 7. Moderate hiatal hernia. 8. Subtotal colectomy. 9. Additional findings as above. ACT 112: Negative or not required by law. Electronically signed by: Caesar Yoon M.D. 12/27/2021 11:04 AM
[2021-12-27] MEDS ORDERED: Nursing to Pharmacy Communication SCH (11:30)
[2021-12-27] MEDS: PROMETHAZINE HCL 12.5 MG in SODIUM CHLORIDE 0.9% 50 ML IV SCH ×2 (17:04→21:37)
[2021-12-27] MEDS: CLOPIDOGREL BISULFATE 75 MG TAB PO SCH (21:35)
[2021-12-27] MEDS: METOPROLOL SUCC 25MG EXT REL TAB PO SCH (21:35)
[2021-12-27] MEDS: DAPTOmycin 500 MG in SYRINGE 0 ML IV SCH (21:37)
[2021-12-27] MEDS: ACETAMINOPHEN 1000 MG/100 ML IV IV PRN (22:02)
[2021-12-28] MEDS ORDERED: Nursing to Pharmacy Communication SCH (02:15)
[2021-12-28] MEDS: LACTATED RINGER'S 1,000 ML IV SCH (02:55)
[2021-12-28] MEDS: PROMETHAZINE HCL 12.5 MG in SODIUM CHLORIDE 0.9% 50 ML IV SCH ×4 (04:58→22:37)
[2021-12-28 07:47] LABS: Hematocrit (blood only) 32.6 % (37-47); Hemoglobin 10.1 g/dL (12.0-16.0); Mean Corpuscular Hemoglobin 29.4 pg (25-34); Mean Platelet Volume 11.3 fL (7.4-10.4); Platelet Count 187 K/uL (130-400); RDW Coefficient of Variation 14.3 % (11.5-14.5); RDW Standard Deviation 49.9 fL (36.4-46.3); Red Blood Count 3.43 M/uL (4.2-5.4); White Blood Count 6.81 K/uL (4.8-10.8)
[2021-12-28 08:06] LABS: BUN Creatinine Ratio 4.4 (10-20); Calcium 8.9 mg/dl (8.5-10.1); Est GFR (African American) 46.2 ml/min; Est GFR (Non-African American) 39.9 ml/min; Potassium 3.5 mmol/L (3.5-5.1)
[2021-12-28] MEDS: INSULIN ASPART PER UNIT SC SCH ×4 (09:08→20:22)
[2021-12-28] MEDS: PANTOprazole 40 MG TAB PO SCH ×2 (09:13→20:24)
[2021-12-28] MEDS: OXYBUTYNIN CHLORIDE 5 MG TAB PO SCH (09:13)
[2021-12-28] MEDS: METOPROLOL SUCC 50MG EXT REL TAB PO SCH (09:13)
[2021-12-28] MEDS: TAMSULOSIN HCL 0.4 MG CAP PO SCH (09:13)
[2021-12-28] MEDS: LIDOCAINE 5% 1 PATCH TD SCH (09:14)
[2021-12-28] MEDS: cefTRIAXone SODIUM 2,000 MG in DEXTROSE 5% 50 ML IV SCH (09:31)
--- NOTE | 2021-12-28 11:22 | Hospitalist Progress Note ---
Date of Service December 28, 2021 Assessment & Plan (1) Recurrent UTI: (2) Nausea and vomiting: (3) Bilateral nephrolithiasis: Plan: Patient presented from home with reports of intractable nausea and vomiting. Recent hospitalizations for same In the ED, UA suggestive of UTI. Patient was tachycardic ID recommendations noted. Patient had been transferred recently for IR eval and no procedure was recommended. Will continue medical management for now. On ceft and dapto Urine cultures grew multiple agnes likely contaminant. Discussed with ID. Will resend urine for culture, collect via straight cath Continue schedule promethazine Continue prn zofran Patient's PCP had called on 12/25/21. She reported patient has transport problems for outpatient apts. She also agreed with trying to avoid opioids as patient was on opioid for sometime in the past and was successfully weaned off Patient had refused some meds in the past 24h due to intermittent nausea Repeat CT abd/p didn't show any significant change from one on admission Hematochezia resolved Patient has hx of colectomy GI eval appreciated. Plan for flex sig C diff negative (4) Acute kidney injury superimposed on CKD: (5) CKD (chronic kidney disease), stage III: Plan: On admission, creatinine 3.1, Baseline low-mid 1's Likely prerenal in nature due to vomiting and poor intake Cr improved, now at 1.36 Continue IVF due to poor oral intake Nephrology on board Avoid nephrotoxins (6) History of TIA (transient ischemic attack): Plan: Continue clopidogrel (7) Bipolar disorder: Plan: Previously prescribed oxcarbazepine, does not seem as though patient has been taking this medication recently Likely will need outpatient follow-up with psychiatry (8) Chronic anemia: Plan: Hgb 12.7, likely hemoconcentrated due to dehydration Baseline hemoglobin ~ 8.0 Hb is 10 today (9) Chronic respiratory failure with hypoxia: (10) COPD (chronic obstructive pulmonary disease): Plan: On chronic 2 L of oxygen No signs of acute exacerbation Continue home inhalers (11) DM type 2 (diabetes mellitus, type 2): Plan: Hgb A1c 6.1 10/2021 Hold oral agents and utilize NovoLog per protocol while hospitalized (12) Sinus tachycardia: Plan: Controlled on metoprolol (13) CALI (obstructive sleep apnea): Plan: Had been on CPAP in the remote past, outpatient sleep study pending (14) DVT prophylaxis: Plan: SQ heparin held due to hematochezia. Will monitor SCD Admission and Anticipated Discharge Date Admission Date: December 22, 2021 Subjective Patient seen and examined Patient continues to report anorexia and left sided abdominal pain Still has nausea but reported this is improved today. No vomiting today Denied any headache, dizziness, fever Denied any chest pain, cough, shortness of breath Reports dysuria. Denied freq, hematuria, urgency Physical Exam Constitutional: + well hydrated and + obese; no acute distress Eyes: PERRL, conjunctivae normal, anicteric sclerae ENMT: external ear and nose normal, oropharynx normal Respiratory: normal respiratory effort, lungs clear to auscultation Cardiovascular: Rate/Rhythm: regular rate and regular rhythm S1 S2 Gastrointestinal (Abdomen): Inspection/Auscultation: abdomen normal to inspection and normal bowel sounds; abdomen not distended left abd tenderness Musculoskeletal: no cyanosis or clubbing, extremities motor strength 5/5 Neurologic: PERRL, EOMI, accommodation nl, no face palsy, no dysarthria Psychiatric: A+Ox3, euthymic affect Genitourinary: Left CVA tenderness Results & Data Results & Data ([facility]) Vital Signs (Past 12 Hours) Vital Signs Temp Pulse Pulse Resp BP Pulse Ox 12/28/21 07:40 61 12/28/21 07:23 36.7 C 68 18 109/70 98 12/28/21 03:07 36.7 C 74 18 102/65 93 12/28/21 00:27 73 12/27/21 23:51 36.7 C 71 18 124/74 98 Laboratory Results Abnormal lab results 12/28/21 12/28/21 12/28/21 Range/Units 07:24 07:24 11:35 RBC 3.43 L (4.2-5.4) M/uL Hgb 10.1 L (12.0-16.0) g/dL Hct 32.6 L (37-47) % MCHC 31.0 L (32-36) g/dL RDW Std Deviation 49.9 H (36.4-46.3) fL MPV 11.3 H (7.4-10.4) fL Chloride 108 H (98-107) mmol/L Creatinine 1.36 H (0.6-1.2) mg/dl BUN/Creatinine Ratio 4.4 L (10-20) POC Glucose 100 H (70-99) mg/dl 12/28/21 Range/Units 16:38 RBC (4.2-5.4) M/uL Hgb (12.0-16.0) g/dL Hct (37-47) % MCHC (32-36) g/dL RDW Std Deviation (36.4-46.3) fL MPV (7.4-10.4) fL Chloride (98-107) mmol/L Creatinine (0.6-1.2) mg/dl BUN/Creatinine Ratio (10-20) POC Glucose 105 H (70-99) mg/dl
--- NOTE | 2021-12-28 11:59 | Nephrology Progress Note ---
Date of Service December 28, 2021 Assessment & Plan Admission and Anticipated Discharge Date Admission Date: December 22, 2021 Subjective Assessment & Plan (1) Acute kidney injury superimposed on CKD: Plan: Further improving nonoliguric prerenal acute on chronic renal failure with improvement in renal function after IVF and antibiotics. Her presenting creatinine was 3.1, baseline mid to high ones through 2020/early 2021 but mostly in mid ones and most recently 1.4 on 12/14. Improved to 1.4 today. With hydration as at previous admissions she has improved dramatically both in terms of renal function and marked improvement of all 3 cell lines in cbc < of course also on abtx w/ this improvement too. she may well have chronic interstitial nephritis from stone disease or other conditions; not a renal biopsy candidate however to evaluate this -daily bmp Kidney function back to baseline. NO need of iv fluids--STOP (2) Recurrent UTI: Plan: All urine C/s negative. Not acting like sepsis now. Will ask ID and urology again regarding ABx choice and duration (3) Bilateral nephrolithiasis: Plan: nonobstructive at this time; urology following and appreciate input; for non emergent surgical management (4) Renal cyst: Plan: 7.2 cm thick walled cyst stable in appearance in pt with recurrent admissions. However this time urine C/s negative. She does not need CYst drainage by IR for now. Subjective No complaints now. eating and drinking. Urine good. Review of Systems Review of Systems: All systems reviewed & are unremarkable except as noted in Subjective Physical Exam Constitutional: well developed, well nourished, + acute distress (mild distress, lying flat on 02nc), + frail appearing and cooperative Eyes: EOM intact bilaterally ENMT: Ears: no external ear abnormality Nose: no external nose abnormality Mouth: + dry oral mucous membranes Neck: no nuchal rigidity Respiratory: normal respiratory effort Auscultation: + diminished lung sounds Cardiovascular: RRR, no murmur, no edema Gastrointestinal (Abdomen): Inspection/Auscultation: normal bowel sounds Percussion/Palpation: + abdomen tender (To moderate palpation worst LLQ), + guarding (w/ LLQ palpation) and abdomen soft; no ascites Musculoskeletal: Extremities: + abnormal strength Skin: no rashes, warm and dry Results & Data ([facility]) Vital Signs (Past 12 Hours) Vital Signs Temp Pulse Pulse Resp BP Pulse Ox 12/28/21 11:37 36.7 C 72 18 135/85 100 12/28/21 07:40 61 12/28/21 07:23 36.7 C 68 18 109/70 98 12/28/21 03:07 36.7 C 74 18 102/65 93 12/28/21 00:27 73
[2021-12-28] MEDS: ONDANSETRON INJ 2 MG/ML 2 ML VIAL IV PRN ×2 (12:43→20:27)
[2021-12-28] MEDS: ACETAMINOPHEN 1000 MG/100 ML IV IV PRN (12:55)
--- NOTE | 2021-12-28 15:57 | Gastroenterology Progress Note ---
Date of Service December 28, 2021 Assessment & Plan (1) Chronic diarrhea: Plan: She is predisposed to diarrhea due to hx of colectomy, now with worsened diarrhea contributing to acute on chronic renal injury. Will plan for flex sig tomorrow. No need for oral prep. Will prep with enema only. Keep NPO after midnight. Hold Plavix. Further recommendations after flex sig. Admission and Anticipated Discharge Date Admission Date: December 22, 2021 Supervising Physician Co-Signing Physician Notes I performed a history and physical examination of the patient today, including specifically on physical exam - soft abdomen. I have discussed the patient's management with the advanced practitioner. Please refer to the nurse practitioner's note for the documented findings and plan of care. Flex sig tomorrow then start on Imodium + PPI +/- Cholestyramine. Subjective Ms. Nesbitt is a 66 yr old female. Hx colon cancer 2010 s/p ileoproctostomy last colon in 2019. Admitted on 12/22 w/ recurrent UTI, PERRI on CKD and diarrhea. Continuing with loose BMs, about 5 - 10x/day. Stool for C-diff and GI path (-). Review of Systems Review of Systems: ROS: Gen: + weakness (improving), No fevers Eyes: No eye redness, or pain, no recent vision changes Resp: No SOB, no cough Cardio: No palpitations/irregular beats, no chest pain GI: as per HPI, otherwise (-) : Denies pain on urination Skin: No jaundice, itching or new rashes Physical Exam Constitutional: well developed and cooperative Eyes: PERRL, conjunctivae normal, anicteric sclerae ENMT: external ear and nose normal, oropharynx normal Neck: trachea midline, no thyromegaly Respiratory: normal respiratory effort, lungs clear to auscultation Cardiovascular: RRR, no murmur, no edema Gastrointestinal (Abdomen): Percussion/Palpation: + abdomen tender (Mild diffuse abdominal tenderness. No signs of acute abdomen.) and abdomen soft; no guarding and abdomen not rigid Skin: no rashes, warm and dry normal turgor Neurologic: PERRL, EOMI, accommodation nl, no face palsy, no dysarthria awake; not confused Psychiatric: A+Ox3, euthymic affect Lymphatic: no cervical or axillary lymphadenopathy Results & Data ([facility]) Vital Signs (Past 12 Hours) Vital Signs Temp Pulse Pulse Resp BP BP Pulse Ox 12/28/21 14:52 36.7 C 86 18 98/66 L 98 12/28/21 11:37 36.7 C 72 18 135/85 100 12/28/21 07:40 61 12/28/21 07:23 36.7 C 68 18 109/70 98 Laboratory Results WBC 6, Hb 10, HCT 32, PLT S187, NA 139, K3.5, CL 108. CO2 25, BUN 6, CR 1.36, glucose 82 Diagnostic Findings non contrast CTAP 12/27/21: 1. No significant change from 12/22/2021. 2. A left ureteral stent is unchanged in position. No calculi are identified in the left ureter along the course of the stent. 3. Fullness of the left renal pelvis is unchanged. 4. There is pericystic inflammation, as well as infiltration around the left kidney and ureter. Although this could be related to the presence of an indwel ling stent, superimposed urinary tract infection is not excluded. Correlate with clinical findings and urinalysis. The degree of inflammation around the left renal pelvis is unchanged from 12/22/2021. 5. There is a 7.2 cm cyst identified in the upper pole of left kidney which has been present dating back to 2010. The cyst remains thick walled, and superimposed infection is not excluded. 6. Bilateral nephrolithiasis as above. 7. Moderate hiatal hernia. 8. Subtotal colectomy. 9. Additional findings as above.
[2021-12-28] MEDS ORDERED: MoRPHine SULFATE 5 MG/0.25 ML UDP PO PRN (19:20)
[2021-12-28] MEDS: DAPTOmycin 500 MG in SYRINGE 0 ML IV SCH (20:21)
[2021-12-28] MEDS: CLOPIDOGREL BISULFATE 75 MG TAB PO SCH (20:24)
[2021-12-28] MEDS: METOPROLOL SUCC 25MG EXT REL TAB PO SCH (20:25)
[2021-12-29] MEDS: PROMETHAZINE HCL 12.5 MG in SODIUM CHLORIDE 0.9% 50 ML IV SCH ×4 (04:16→22:43)
[2021-12-29] MEDS: INSULIN ASPART PER UNIT SC SCH ×4 (08:09→20:36)
[2021-12-29] MEDS: LIDOCAINE 5% 1 PATCH TD SCH (08:17)
[2021-12-29] MEDS: cefTRIAXone SODIUM 2,000 MG in DEXTROSE 5% 50 ML IV SCH (08:17)
[2021-12-29] MEDS: PANTOprazole 40 MG TAB PO SCH ×2 (08:18→20:41)
[2021-12-29] MEDS: OXYBUTYNIN CHLORIDE 5 MG TAB PO SCH (08:18)
[2021-12-29] MEDS: TAMSULOSIN HCL 0.4 MG CAP PO SCH (08:18)
[2021-12-29] MEDS: METOPROLOL SUCC 50MG EXT REL TAB PO SCH (08:18)
[2021-12-29 09:24] LABS: Hematocrit (blood only) 33.5 % (37-47); Hemoglobin 10.2 g/dL (12.0-16.0); Mean Corpuscular Hemoglobin 29.1 pg (25-34); Mean Corpuscular Hgb Conc 30.4 g/dL (32-36); Mean Corpuscular Volume 95.4 fL (80-100); Mean Platelet Volume 11.5 fL (7.4-10.4); Platelet Count 199 K/uL (130-400); RDW Coefficient of Variation 14.4 % (11.5-14.5); RDW Standard Deviation 50.3 fL (36.4-46.3); Red Blood Count 3.51 M/uL (4.2-5.4); White Blood Count 7.43 K/uL (4.8-10.8)
--- NOTE | 2021-12-29 09:26 | Anesthesiology Consultation ---
Date of Service December 29, 2021 Assessment & Plan ASA ASA4 Proposed Anesthesia Anesthesia Type: MAC Risk / Benefits Reviewed With: PT / POA / Parent / Guardian, Accepts Plan and Informed Consent Obtained History Surgery Operation Date: 12/29/21 17:15 Proposed Procedures p Flexible Sigmoidoscopy Dr Thomas - Venkat Thomas MD Height/Weight Height: 4 ft 11 in Weight: 86 kg Allergies Allergy/AdvReac Type Severity Reaction Status Date / Time fentanyl Allergy Severe itching/felt Verified 11/17/21 20:25 like throat closing salicylates Allergy Severe SHORTNESS Verified 11/17/21 20:25 OF BREATH Iodinated Contrast Media Allergy Intermediate EYES Verified 11/17/21 20:25 SWELLING/Hives amoxicillin [From Augmentin] Allergy Mild Rash Verified 11/17/21 20:25 aspirin Allergy Mild FACIAL Verified 11/17/21 20:25 SWELLING clavulanic acid Allergy Mild Rash Verified 11/17/21 20:25 [From Augmentin] hydromorphone Allergy Mild RASH/ITCHIN Verified 11/17/21 20:25 G meperidine AdvReac Intermediate ITCH Verified 11/17/21 20:25 morphine AdvReac Intermediate ITCH Verified 11/17/21 20:25 tramadol AdvReac Mild itch Verified 11/17/21 20:25 Medications Home Medications Medication Instructions Recorded Confirmed Last Taken atorvastatin 40 mg tablet (Lipitor) 40 mg PO QPM 07/12/18 12/22/21 11/16/21 clopidogrel 75 mg tablet (Plavix) 75 mg PO QPM 07/12/18 12/22/21 11/16/21 pantoprazole 40 mg tablet,delayed 40 mg PO BID 07/12/18 12/22/21 11/17/21 08:00 release (Protonix) riboflavin (vitamin B2) 400 mg 400 mg PO QPM 07/12/18 12/22/21 11/16/21 tablet cholecalciferol (vitamin D3) 50 2,000 unit PO QAM 05/16/19 12/22/21 11/17/21 mcg (2,000 unit) capsule (Vitamin D3) albuterol sulfate 90 mcg/actuation 2 puff INHALATION Q4H PRN 07/21/19 12/22/21 09/13/21 aerosol inhaler magnesium oxide 400 mg PO HS 10/05/19 12/22/21 11/16/21 fluticasone fur. 100 mcg-umeclid 1 inh INHALATION DAILY PRN 12/11/20 12/22/21 09/13/21 62.5 mcg-vilant 25 mcg inhalat.powder (Trelegy Ellipta) metoprolol succinate 25 mg 25 mg PO PM tab 12/11/20 12/22/21 11/16/21 tablet,extended release 24 hr metoprolol succinate 50 mg 50 mg PO QAM 12/11/20 12/22/21 11/17/21 tablet,extended release 24 hr glipizide 2.5 mg tablet, extended 2.5 mg PO PM 04/29/21 12/22/21 11/16/21 release 24 hr (Glucotrol XL) ondansetron 4 mg disintegrating 4 mg PO Q8H PRN #10 tab 06/02/21 12/22/21 09/13/21 tablet acetaminophen 500 mg tablet 1,000 mg PO AMHS 10/11/21 12/22/21 11/17/21 08:00 (Tylenol Extra Strength) loperamide 2 mg capsule 2 mg PO TID PRN #30 cap 11/09/21 12/22/21 Unknown phenazopyridine 100 mg tablet 100 mg PO TID PRN #30 tab 11/09/21 12/22/21 Unknown (Pyridium) oxcarbazepine 300 mg tablet 300 mg PO BID 12/22/21 12/22/21 Unknown oxycodone 5 mg tablet 5 mg PO BID PRN 12/22/21 12/22/21 Unknown tamsulosin 0.4 mg capsule 0.4 mg PO DAILY 12/22/21 12/22/21 Unknown Active Medications Generic Name Dose Route Start Last Admin Trade Name Freq PRN Reason Stop Dose Admin Acetaminophen 1,000 mg 12/26/21 20:46 12/28/21 12:55 Acetaminophen 1000 Mg/100 Ml Iv IV 12/29/21 20:45 1,000 mg TID PRN Administration Pain or Fever Clopidogrel Bisulfate 75 mg 12/22/21 21:00 12/28/21 20:24 Clopidogrel Bisulfate 75 Mg Tab PO 01/21/22 20:59 75 mg QPM MARLA Administration Heparin Sodium (Porcine) 5,000 units 12/22/21 22:00 12/25/21 05:55 Heparin Sod 5,000 Unit/0.5 Ml Vial SQ 01/21/22 21:59 Not Given Q8 MARLA Ceftriaxone Sodium 2,000 mg/ 70 mls @ 100 mls/hr 12/24/21 09:00 12/29/21 08:17 Dextrose IV 01/03/22 08:59 100 mls/hr Q24H MARLA Administration Protocol Promethazine HCl 12.5 mg/ 50.5 mls @ 202 mls/hr 12/27/21 16:00 12/29/21 04:32 Sodium Chloride IV 01/26/22 15:59 Infused Q6H MARLA Infusion Daptomycin 500 mg/ Syringe 10 mls @ 5 mls/min 12/27/21 21:00 12/28/21 20:21 IV 12/29/21 20:59 5 mls/min Q24H MARLA Administration Protocol Insulin Aspart 0 units 12/24/21 16:30 12/29/21 08:09 Insulin Aspart Per Unit SC 01/23/22 16:29 Not Given ACHS MARLA Lidocaine 1 patch 12/24/21 09:45 12/29/21 08:17 Lidocaine 5% 1 Patch TD 01/23/22 09:44 1 patch QAM MARLA Administration Metoprolol Succinate 25 mg 12/22/21 21:00 12/28/21 20:25 Metoprolol Succ 25mg Ext Rel Tab PO 01/21/22 20:59 25 mg PM MARLA Administration Metoprolol Succinate 50 mg 12/25/21 09:00 12/29/21 08:18 Metoprolol Succ 50mg Ext Rel Tab PO 01/24/22 08:59 50 mg QAM MARLA Administration Miscellaneous 1 ea 12/24/21 21:00 12/28/21 20:25 Remove Lidoderm Patch N/A 01/23/22 20:59 Not Given DAILY@2100 MARLA Morphine Sulfate 5 mg 12/28/21 19:20 12/28/21 20:57 Morphine Sulfate 5 Mg/0.25 Ml Udp PO 01/11/22 19:19 5 mg ONCE PRN Administration with straight cath Ondansetron HCl 4 mg 12/22/21 20:14 12/28/21 20:27 Ondansetron Inj 2 Mg/Ml 2 Ml Vial IV 01/21/22 20:13 4 mg Q6H PRN Administration Nausea Oxybutynin Chloride 5 mg 12/24/21 09:45 12/29/21 08:18 Oxybutynin Chloride 5 Mg Tab PO 01/23/22 09:44 5 mg QAM MARLA Administration Pantoprazole Sodium 40 mg 12/22/21 21:00 12/29/21 08:18 Pantoprazole 40 Mg Tab PO 01/21/22 20:59 40 mg BID MARLA Administration Tamsulosin HCl 0.4 mg 12/23/21 09:00 12/29/21 08:18 Tamsulosin Hcl 0.4 Mg Cap PO 01/22/22 08:59 0.4 mg DAILY MARLA Administration NPO Date Last Intake of Fluids: 12/29/21 Time Last Intake of Fluids: 08:00 Date Last Intake of Solids: 12/27/21 Time Last Intake of Solids: 00:00 Past Medical History Medical History Anxiety Asthma well controlled per pt, rare inh use Bipolar disorder Chronic back pain Chronic headaches Chronic renal insufficiency stage 3, following with [facility] nephrology ([place]) Chronic respiratory failure with hypoxia CKD (chronic kidney disease), stage III COPD (chronic obstructive pulmonary disease) Deep vein thrombosis LLE - COULD NOT RECALL DATE - REPORTS SHE WAS TREATED AT [facility] W/ BLOOD THINNERS Depression DM type 2 (diabetes mellitus, type 2) GERD (gastroesophageal reflux disease) History of colon cancer 2012 S/P BOWEL RESECTION. History of COVID-27 Sep 2020 History of TIA (transient ischemic attack) HTN (hypertension) Hyperlipidemia Kidney stone Myocardial Infarction 06/2016--> [facility] -- CARDIAC CATH --> normal coronary anatomy without coronary obstruction but Plavix started per [facility] discharge summary On anticoagulant therapy plavix daily CALI (obstructive sleep apnea) Poor historian Recurrent UTI Renal colic s/p L ureteral stent 10/2021 followed by lithotripsy, stone extraction and stent exchange 11/2021 Renal cyst 7 cm thick walled as of early 2021 Sinus tachycardia Follows with cardio Takotsubo cardiomyopathy History of in 2015 with return to normal LV function Exercise / Class Metabolic Activity IV < 2 Limit ADL/Bedbound Past Family History Family History Other Breast cancer Past Surgical History Surgical History H/O hand surgery RIGHT History of appendectomy History of bilateral cataract extraction History of blepharoplasty History of cardiac cath 03/2018 - [place] - DENIES STENTS/ANGIOPLASTY - [facility] - FOLLOWS W/ DR. TORRES History of closure of ileostomy History of colectomy due to colon cancer History of colonoscopy History of cystoscopy History of esophageal dilatation History of esophagogastroduodenoscopy (EGD) History of hysterectomy History of kidney surgery at age 9 yrs "something was wrong and had to fix it" History of lithotripsy History of tooth extraction History of total abdominal hysterectomy and bilateral salpingo-oophorectomy Hx of cholecystectomy Past Anesthesia History No Hx of Anesthesia Complications and No Family Hx of Anesthesia Complications History of PONV No Hx of PONV and No Hx of Motion Sickness Social History Smoking Status: Never smoker tobacco type: cigarettes Hx Alcohol Use: No Hx Substance Use: No substance use type: does not use Last Used Substance Other:: hasnt used for at least 1 year Review of Systems denies fever/cough/ colds/ chest pain/ SOB/ CALI denies CALI Physical Exam Vital Signs Last Vital Signs Temp 36.7 C 12/29/21 09:15 Pulse 68 12/29/21 09:15 Resp 18 12/29/21 09:15 BP 143/61 H 12/29/21 09:15 Pulse Ox 100 12/29/21 09:15 ENMT Mouth: + edentulous; no TMJ abnormality and no dentition abnormality Thyromental Distance: > or= 3.5 Finger Breadths Mallampati Class: II Neck neck extension not limited Respiratory normal respiratory effort; no respiratory distress Auscultation: lungs clear to auscultation bilaterally Cardiovascular Rate/Rhythm: regular rate and regular rhythm Neurologic moves all extremities Psychiatric Orientation: alert and oriented x 3 Testing Laboratory Results 12/29/21 08:46 PT 10.5 Seconds (9.0-12.0) 12/22/21 15:04 INR 1.0 (0.9-1.1) 12/22/21 15:04 Urine Color Dark Yellow 12/22/21 17:10 Urine Appearance Turbid (Clear) A 12/22/21 17:10 Urine pH 5.5 (4.5-7.5) 12/22/21 17:10 Ur Specific [place] 1.020 (1.000-1.030) 12/22/21 17:10 Urine Protein 3+ (Negative) H 12/22/21 17:10 Urine Glucose (UA) Negative (Negative) 12/22/21 17:10 Urine Ketones Trace (Negative) H 12/22/21 17:10 Urine Nitrite Positive (Negative) A 12/22/21 17:10 Ur Leukocyte Esterase 3+ (Negative) H 12/22/21 17:10 Urine WBC (Auto) >30 /hpf (0-5) H 12/22/21 17:10 Urine RBC (Auto) >30 /hpf (0-4) H 12/22/21 17:10 U Hyaline Cast (Auto) 1-5 /lpf (0-5) 12/22/21 17:10 U Epithel Cells (Auto) >30 /lpf (0-5) H 12/22/21 17:10 Urine Bacteria (Auto) Negative (Negative) 12/22/21 17:10 12/22/21 18:58 Aerobic Blood Culture - Final Blood No growth in Aerobic bottle after 5 days. Anaerobic Blood Culture - Final 12/22/21 17:52 Aerobic Blood Culture - Final Blood No growth in Aerobic bottle after 5 days. Anaerobic Blood Culture - Final No growth in Anaerobic bottle after 5 days. 12/25/21 11:20 Urine Culture - Final Urine,Clean Catch More than three types of organisms present, all low counts mixed probable skin agnes. No further identifications or sensitivities to follow. 12/22/21 17:10 Urine Culture - Final Urine,Clean Catch Three types of organisms present, all high counts probable skin agnes. No further identifications or sensitivities to follow. 12/29/21 12/29/21 12/29/21 07:47 06:48 00:47 POC Glucose 83 87 87
[2021-12-29 09:45] LABS: BUN Creatinine Ratio 4.8 (10-20); Creatinine Clr Calc Pharmacy 40.7 ml/min; Est GFR (African American) 50.7 ml/min; Est GFR (Non-African American) 43.7 ml/min; Potassium 3.1 mmol/L (3.5-5.1)
--- NOTE | 2021-12-29 09:54 | GI REPORT ---
Patient Name: Elise Nesbitt Procedure Date: 12/29/2021 9:28 AM Date of : 1955 Admit Type: Inpatient Age: 66 Gender: Female Attending MD: Venkat Thomas MD Procedure: Flexible Sigmoidoscopy Providers: Venkat Thomas MD Referring MD: Lo Chand Indications: Diarrhea Medicines: Propofol per Anesthesia Complications: No immediate complications. Estimated Blood Loss: Estimated blood loss: none. Procedure: Pre-Anesthesia Assessment: - Prior to the procedure, a History and Physical was performed, and patient medications, allergies and sensitivities were reviewed. The patient's tolerance of previous anesthesia was reviewed. - The risks and benefits of the procedure and the sedation options and risks were discussed with the patient. All questions were answered and informed consent was obtained. - Patient identification and proposed procedure were verified prior to the procedure by the physician and the nurse. The procedure was verified in the procedure room. - Pre-procedure physical examination revealed no contraindications to sedation. After obtaining informed consent, the endoscope was passed under direct vision. Throughout the procedure, the patient's blood pressure, pulse, and oxygen saturations were monitored continuously. The scope was introduced through the anus and advanced to the ileo-rectal anastomosis. After obtaining informed consent, the endoscope was passed under direct vision. Throughout the procedure, the patient's blood pressure, pulse, and oxygen saturations were monitored continuously.The flexible sigmoidoscopy was accomplished without difficulty. The patient tolerated the procedure well. The quality of the bowel preparation was good. Findings: The perianal and digital rectal examinations were normal. There was evidence of a prior end-to-end ileo-rectal anastomosis in the colon. This was patent and was characterized by healthy appearing mucosa. The anastomosis was traversed. The rectum appeared normal. Biopsies were taken with a cold forceps for histology. Verification of patient identification for the specimen was done by the physician and nurse using the patient's name and date. Impression: - Patent end-to-end ileo-rectal anastomosis, characterized by healthy appearing mucosa. - The rectum is normal. Biopsied. Recommendation: - Return patient to hospital [facility] for ongoing care. - Await pathology results. - Trial of Cholestyramine + Imodium. - Recall GI if needed. Venkat Thomas MD 12/29/2021 9:53:52 AM This report has been signed electronically. Note Initiated On: 12/29/2021 9:28 AM Number of Addenda: 0 I attest to the content of the Intraoperative Record and orders documented therein, exceptions below {[id number]}
--- NOTE | 2021-12-29 10:12 | Anesthesiology Progress Note ---
Date of Service December 29, 2021 Anesthesia Post Procedure Vital Signs Vital Signs: Temp Pulse Pulse Resp BP BP Pulse Ox 12/29/21 10:01 61 16 144/76 H 100 12/29/21 09:46 76 16 96/43 L 100 12/29/21 09:15 36.7 C 68 18 143/61 H 100 12/29/21 07:41 71 12/29/21 07:05 36.6 C 84 20 129/85 100 12/29/21 04:17 36.9 C 84 18 110/75 97 12/29/21 00:53 79 12/28/21 22:55 36.7 C 82 20 129/83 99 12/28/21 18:45 36.7 C 82 20 127/84 100 12/28/21 16:00 77 12/28/21 14:52 36.7 C 86 18 98/66 L 98 12/28/21 11:37 36.7 C 72 18 135/85 100 Pain Intensity Back: Pain Intensity: 8 Bilateral Abdomen: Pain Intensity: 8 Transfer of Care Handoff Completed per policy Notes Mental Status: alert / awake / arousable and participated in evaluation Patient Amnestic to Procedure: Yes Nausea / Vomiting: adequately controlled Pain: adequately controlled Airway Patency, RR, SpO2: stable & adequate BP & HR: stable & adequate Hydration State: stable & adequate Anesthetic Complications: no major complications apparent and Pt Satisfied with anesthetic care
[2021-12-29] MEDS ORDERED: POTASSIUM CHLORIDE CRTAB 20 MEQ TABCR PO STA (18:05)
--- NOTE | 2021-12-29 18:07 | Hospitalist Progress Note ---
Date of Service December 29, 2021 Assessment & Plan (1) Recurrent UTI: (2) Nausea and vomiting: (3) Bilateral nephrolithiasis: Plan: Patient presented from home with reports of intractable nausea and vomiting. Recent hospitalizations for same In the ED, UA suggestive of UTI. Patient was tachycardic ID recommendations noted. Patient had been transferred recently for IR eval and no procedure was recommended. Will continue medical management for now. On ceft and dapto Urine cultures grew multiple agnes likely contaminant. On 12/28/21, I discussed with ID. Recommended resend Urine culture collected by straight cath Continue schedule promethazine Continue prn zofran Patient's PCP had called on 12/25/21. She reported patient has transport problems for outpatient apts. She also agreed with trying to avoid opioids as patient was on opioid for sometime in the past and was successfully weaned off Patient had refused some meds in the past 24h due to intermittent nausea Repeat CT abd/p didn't show any significant change from one on admission Hematochezia resolved Patient has hx of colectomy GI eval appreciated. Flex sig report noted C diff negative (4) Acute kidney injury superimposed on CKD: (5) CKD (chronic kidney disease), stage III: Plan: On admission, creatinine 3.1, Baseline low-mid 1's Likely prerenal in nature due to vomiting and poor intake Cr improved, now at 1.26 Continue IVF due to poor oral intake Nephrology on board Avoid nephrotoxins Hypokalemia today K is 3.1 Replete and monitor (6) History of TIA (transient ischemic attack): Plan: Continue clopidogrel (7) Bipolar disorder: Plan: Previously prescribed oxcarbazepine, does not seem as though patient has been taking this medication recently Likely will need outpatient follow-up with psychiatry (8) Chronic anemia: Plan: Hgb 12.7, likely hemoconcentrated due to dehydration Baseline hemoglobin ~ 8.0 Hb is 10.2 today (9) Chronic respiratory failure with hypoxia: (10) COPD (chronic obstructive pulmonary disease): Plan: On chronic 2 L of oxygen No signs of acute exacerbation Continue home inhalers (11) DM type 2 (diabetes mellitus, type 2): Plan: Hgb A1c 6.1 10/2021 Hold oral agents and utilize NovoLog per protocol while hospitalized (12) Sinus tachycardia: Plan: Controlled on metoprolol (13) CALI (obstructive sleep apnea): Plan: Had been on CPAP in the remote past, outpatient sleep study pending (14) DVT prophylaxis: Plan: Resume sq heparin Admission and Anticipated Discharge Date Admission Date: December 22, 2021 Subjective Patient seen and examined Patient continues to report left sided abdominal pain Stated that nausea is significantly improved today. No vomiting Tolerating diet Denied any headache, dizziness, fever Denied any chest pain, cough, shortness of breath Reports dysuria. Denied freq, hematuria, urgency Physical Exam Constitutional: + well hydrated and + obese; no acute distress Eyes: PERRL, conjunctivae normal, anicteric sclerae ENMT: external ear and nose normal, oropharynx normal Respiratory: normal respiratory effort, lungs clear to auscultation Cardiovascular: Rate/Rhythm: regular rate and regular rhythm S1 S2 Gastrointestinal (Abdomen): Inspection/Auscultation: abdomen normal to inspection and normal bowel sounds; abdomen not distended Left abd tenderness Musculoskeletal: no cyanosis or clubbing, extremities motor strength 5/5 Neurologic: PERRL, EOMI, accommodation nl, no face palsy, no dysarthria Psychiatric: A+Ox3, euthymic affect Results & Data Results & Data ([facility]) Vital Signs (Past 12 Hours) Vital Signs Temp Pulse Pulse Resp BP Pulse Ox 12/29/21 16:16 36.5 C 72 20 127/75 100 12/29/21 15:43 79 12/29/21 12:06 36.3 C L 70 20 139/85 92 12/29/21 10:14 60 16 144/91 H 100 12/29/21 10:01 61 16 144/76 H 100 12/29/21 09:46 76 16 96/43 L 100 12/29/21 09:15 36.7 C 68 18 143/61 H 100 12/29/21 07:41 71 12/29/21 07:05 36.6 C 84 20 129/85 100
[2021-12-29] MEDS: DAPTOmycin 500 MG in SYRINGE 0 ML IV SCH (20:40)
[2021-12-29] MEDS: CLOPIDOGREL BISULFATE 75 MG TAB PO SCH (20:40)
[2021-12-29] MEDS: METOPROLOL SUCC 25MG EXT REL TAB PO SCH (20:41)
[2021-12-29] MEDS: HEPARIN SOD 5,000 UNIT/0.5 ML VIAL SQ SCH (22:43)
[2021-12-29] MEDS ORDERED: ACETAMINOPHEN 1,000 MG/100 ML VIAL IV STA (23:19)
[2021-12-30] MEDS: PROMETHAZINE HCL 12.5 MG in SODIUM CHLORIDE 0.9% 50 ML IV SCH ×4 (04:00→22:01)
[2021-12-30] MEDS: HEPARIN SOD 5,000 UNIT/0.5 ML VIAL SQ SCH ×3 (05:35→23:27)
[2021-12-30] MEDS ORDERED: LOPERAMIDE HCL 2 MG CAP PO PRN (08:11)
[2021-12-30] MEDS: INSULIN ASPART PER UNIT SC SCH ×4 (08:33→20:22)
[2021-12-30] MEDS: cefTRIAXone SODIUM 2,000 MG in DEXTROSE 5% 50 ML IV SCH (08:34)
[2021-12-30 08:35] LABS: Hematocrit (blood only) 30.6 % (37-47); Hemoglobin 9.4 g/dL (12.0-16.0); Mean Corpuscular Hemoglobin 29.6 pg (25-34); Mean Corpuscular Hgb Conc 30.7 g/dL (32-36); Mean Corpuscular Volume 96.2 fL (80-100); Mean Platelet Volume 11.4 fL (7.4-10.4); Platelet Count 193 K/uL (130-400); RDW Coefficient of Variation 14.4 % (11.5-14.5); Red Blood Count 3.18 M/uL (4.2-5.4); White Blood Count 4.97 K/uL (4.8-10.8)
[2021-12-30] MEDS: METOPROLOL SUCC 50MG EXT REL TAB PO SCH (08:35)
[2021-12-30] MEDS: LIDOCAINE 5% 1 PATCH TD SCH (08:35)
[2021-12-30] MEDS: PANTOprazole 40 MG TAB PO SCH ×2 (08:36→20:17)
[2021-12-30] MEDS: TAMSULOSIN HCL 0.4 MG CAP PO SCH (08:36)
[2021-12-30] MEDS: OXYBUTYNIN CHLORIDE 5 MG TAB PO SCH (08:38)
[2021-12-30 09:03] LABS: BUN Creatinine Ratio 5.2 (10-20); Calcium 8.8 mg/dl (8.5-10.1); Est GFR (African American) 47.1 ml/min; Est GFR (Non-African American) 40.6 ml/min; Potassium 3.4 mmol/L (3.5-5.1)
[2021-12-30] MEDS: CHOLESTYRAMINE LIGHT 4 GM PKT PO SCH ×2 (10:28→22:04)
--- NOTE | 2021-12-30 13:56 | Hospitalist Progress Note ---
Date of Service December 30, 2021 Assessment & Plan (1) Recurrent UTI: (2) Nausea and vomiting: (3) Bilateral nephrolithiasis: Plan: Patient presented from home with reports of intractable nausea and vomiting. Recent hospitalizations for same In the ED, UA suggestive of UTI. Patient was tachycardic ID recommendations noted. Patient had been transferred recently for IR eval of left renal cyst and no procedure was recommended. Will continue medical management for now. On ceftriaxone and daptomycin Urine cultures grew multiple agnes likely contaminant. - 12/28/21, prior provider discussed with ID--recommend repeat urine culture from straight cath. Patient initially refused then agreed. Repeat urine cultures obtained from straight cath is pending -Patient's PCP had called on 12/25/21. She reported patient has transport problems for outpatient appointments and she would benefit from having her left ureteral stent removed here prior to discharge. She also agreed with trying to avoid opioids as patient was on opioid for sometime in the past and was successfully weaned off -Repeat CT abd/p didn't show any significant change from one on admission (4) Acute kidney injury superimposed on CKD: Plan: On admission, creatinine 3.1, Baseline low-mid 1's Likely prerenal in nature due to vomiting and poor intake Cr improved, now at 1.26 Continue IVF due to poor oral intake Nephrology on board Avoid nephrotoxins (5) CKD (chronic kidney disease), stage III: (6) History of TIA (transient ischemic attack): Plan: Continue clopidogrel (7) Bipolar disorder: Plan: Previously prescribed oxcarbazepine, does not seem as though patient has been taking this medication recently Likely will need outpatient follow-up with psychiatry (8) Chronic anemia: Plan: Hgb 12.7, likely hemoconcentrated due to dehydration Baseline hemoglobin ~ 8.0 (9) Chronic respiratory failure with hypoxia: (10) COPD (chronic obstructive pulmonary disease): Plan: On chronic 2 L of oxygen No signs of acute exacerbation Continue home inhalers (11) DM type 2 (diabetes mellitus, type 2): Plan: Hgb A1c 6.1 10/2021 Hold oral agents and utilize NovoLog per protocol while hospitalized (12) Sinus tachycardia: Plan: Controlled on metoprolol (13) CALI (obstructive sleep apnea): Plan: Had been on CPAP in the remote past, outpatient sleep study pending (14) DVT prophylaxis: Plan: sq heparin Plan: Hematochezia -resolved -Patient has hx of colectomy -GI eval appreciated. - sig report noted -C diff negative Hypokalemia -Repleted Admission and Anticipated Discharge Date Admission Date: December 22, 2021 Subjective Reports 8/10 left side abdominal pain, requesting additional pain medication other than tylenol Physical Exam Physical Exam: Appears disheveled, older than stated age, no acute distress Respiratory: breathing comfortably, no wheezing/rhonchi/rales Cardiovascular: regular rate and rhythm, no murmurs/rubs/gallops Gastrointestinal (Abdomen): left side abdomen/flank discomfort No abdominal distension Musculoskeletal: no edema, no cyanosis or clubbing Neurologic: awake, alert, spontaneously moving extremities Results & Data Results & Data ([facility]) Vital Signs (Past 12 Hours) Vital Signs Temp Pulse Pulse Resp BP Pulse Ox 12/30/21 12:24 36.6 C 75 18 97/68 L 97 12/30/21 07:03 36.4 C L 76 20 125/82 99 12/30/21 06:16 66 12/30/21 03:35 36.7 C 76 20 110/74 98 Laboratory Results Short CBC 12/30/21 Range/Units 08:09 WBC 4.97 (4.8-10.8) K/uL Hgb 9.4 L (12.0-16.0) g/dL Hct 30.6 L (37-47) % Plt Count 193 (130-400) K/uL BMP 12/30/21 08:09 Sodium 140 Potassium 3.4 L Chloride 109 H Carbon Dioxide 24 BUN 7 Creatinine 1.34 H Glucose 87 Calcium 8.8 Cardiac Enzymes 12/30/21 Range/Units 08:09 Total Creatine Kinase 11 L (26-192) U/L Medications Administered Current Inpatient Medications Acetaminophen (Acetaminophen 325 Mg Tab) 650 mg PO Q4H PRN PRN Reason: pain/fever Stop: 01/21/22 20:13 Cholestyramine Resin (Cholestyramine Light 4 Gm Pkt) 4 gm PO BID@1000,2200 [facility] Stop: 01/29/22 09:59 Last Admin: 12/30/21 10:28 Dose: 4 gm Documented by: Clopidogrel Bisulfate (Clopidogrel Bisulfate 75 Mg Tab) 75 mg PO QPM [facility] Stop: 01/21/22 20:59 Last Admin: 12/29/21 20:40 Dose: 75 mg Documented by: Dextrose (Dextrose 50% 50 Ml Syringe) 25 - 50 ml IV UD PRN; Protocol PRN Reason: Hypoglycemia Protocol Stop: 01/21/22 20:48 Fluticasone Furoate (Fluticasone Furoate 100mcg 14 Puffs/Inhaler) 1 puffs INH DAILY PRN PRN Reason: Shortness Of Breath Stop: 01/21/22 20:50 Glucagon (Glucagon For Inj 1 Mg Vial) 1 mg SQ UD PRN; Protocol PRN Reason: Hypoglycemia Protocol Stop: 01/21/22 20:48 Glucose (Glucose 40% Gel 15 Gm Tube) 15 - 30 gm PO UD PRN; Protocol PRN Reason: Hypoglycemia Protocol Stop: 01/21/22 20:48 Glucose (Glucose 10 Tabs/Tube) 4 - 8 tabs PO UD PRN; Protocol PRN Reason: Hypoglycemia Protocol Stop: 01/21/22 20:48 Heparin Sodium (Porcine) (Heparin Sod 5,000 Unit/0.5 Ml Vial) 5,000 units SQ Q8 [facility] Stop: 01/28/22 21:59 Last Admin: 12/30/21 05:35 Dose: 5,000 units Documented by: Ceftriaxone Sodium 2,000 mg/ (Dextrose) 70 mls @ 100 mls/hr IV Q24H [facility]; Protocol Stop: 01/03/22 08:59 Last Infusion: 12/30/21 10:10 Dose: Infused Documented by: Promethazine HCl 12.5 mg/ (Sodium Chloride) 50.5 mls @ 202 mls/hr IV Q6H [facility] Stop: 01/26/22 15:59 Last Infusion: 12/30/21 12:25 Dose: Infused Documented by: Daptomycin 500 mg/ Syringe 10 mls @ 5 mls/min IV Q24H [facility]; Protocol Stop: 01/01/22 20:59 Last Admin: 12/29/21 20:40 Dose: 5 mls/min Documented by: Insulin Aspart (Insulin Aspart Per Unit) 0 units SC ACHS [facility] Stop: 01/23/22 16:29 Last Admin: 12/30/21 12:23 Dose: 2 units Documented by: Lidocaine (Lidocaine 5% 1 Patch) 1 patch TD QAM [facility] Stop: 01/23/22 09:44 Last Admin: 12/30/21 08:35 Dose: 1 patch Documented by: Loperamide HCl (Loperamide Hcl 2 Mg Cap) 2 mg PO TID PRN PRN Reason: Diarrhea Stop: 01/29/22 08:59 Metoprolol Succinate (Metoprolol Succ 25mg Ext Rel Tab) 25 mg PO PM [facility] Stop: 01/21/22 20:59 Last Admin: 12/29/21 20:41 Dose: 25 mg Documented by: Metoprolol Succinate (Metoprolol Succ 50mg Ext Rel Tab) 50 mg PO QAM [facility] Stop: 01/24/22 08:59 Last Admin: 12/30/21 08:35 Dose: 50 mg Documented by: Miscellaneous (Carbohydrates For Hypoglycemia ) 15 - 30 gm PO UD PRN PRN Reason: Hypoglycemia Protocol Stop: 01/21/22 20:48 Miscellaneous (Remove Lidoderm Patch) 1 ea N/A DAILY@2100 [facility] Stop: 01/23/22 20:59 Last Admin: 12/29/21 20:39 Dose: Not Given Documented by: Miscellaneous Information (Daptomycin Consult Active) 1 ea N/A UD PRN PRN Reason: Consult Stop: 01/21/22 18:13 Morphine Sulfate (Morphine Sulfate 5 Mg/0.25 Ml Udp) 5 mg PO ONCE PRN PRN Reason: with straight cath Stop: 01/11/22 19:19 Last Admin: 12/28/21 20:57 Dose: 5 mg Documented by: Morphine Sulfate (Morphine Sulfate 2 Mg/Ml Carp) 2 mg IV Q4 PRN PRN Reason: Pain Stop: 01/13/22 13:49 Ondansetron HCl (Ondansetron Inj 2 Mg/Ml 2 Ml Vial) 4 mg IV Q6H PRN PRN Reason: Nausea Stop: 01/21/22 20:13 Last Admin: 12/28/21 20:27 Dose: 4 mg Documented by: Oxybutynin Chloride (Oxybutynin Chloride 5 Mg Tab) 5 mg PO QAM [facility] Stop: 01/23/22 09:44 Last Admin: 12/30/21 08:38 Dose: 5 mg Documented by: Pantoprazole Sodium (Pantoprazole 40 Mg Tab) 40 mg PO BID [facility] Stop: 01/21/22 20:59 Last Admin: 12/30/21 08:36 Dose: 40 mg Documented by: Tamsulosin HCl (Tamsulosin Hcl 0.4 Mg Cap) 0.4 mg PO DAILY [facility] Stop: 01/22/22 08:59 Last Admin: 12/30/21 08:36 Dose: 0.4 mg Documented by: Umeclidinium/Vilanterol (Umeclidinium/Vilanterol 62.5/25mcg 7 Puffs/Inhaler) 1 puffs INH DAILY PRN PRN Reason: Shortness Of Breath Stop: 01/21/22 20:50
[2021-12-30] MEDS: MoRPHine SULFATE 2 MG/ML CARP IV PRN ×2 (15:23→20:42)
[2021-12-30] MEDS: CLOPIDOGREL BISULFATE 75 MG TAB PO SCH (20:16)
[2021-12-30] MEDS: METOPROLOL SUCC 25MG EXT REL TAB PO SCH (20:16)
[2021-12-30] MEDS: DAPTOmycin 500 MG in SYRINGE 0 ML IV SCH (20:32)
[2021-12-31] MEDS: PROMETHAZINE HCL 12.5 MG in SODIUM CHLORIDE 0.9% 50 ML IV SCH ×4 (03:35→21:17)
[2021-12-31] MEDS: HEPARIN SOD 5,000 UNIT/0.5 ML VIAL SQ SCH ×3 (05:51→21:17)
[2021-12-31 08:11] LABS: Hematocrit (blood only) 32.9 % (37-47); Hemoglobin 10.1 g/dL (12.0-16.0); Mean Corpuscular Hemoglobin 29.1 pg (25-34); Mean Corpuscular Hgb Conc 30.7 g/dL (32-36); Mean Corpuscular Volume 94.8 fL (80-100); Mean Platelet Volume 11.6 fL (7.4-10.4); Platelet Count 197 K/uL (130-400); RDW Coefficient of Variation 14.4 % (11.5-14.5); RDW Standard Deviation 49.6 fL (36.4-46.3); Red Blood Count 3.47 M/uL (4.2-5.4); White Blood Count 6.21 K/uL (4.8-10.8)
[2021-12-31] MEDS: LIDOCAINE 5% 1 PATCH TD SCH (08:26)
[2021-12-31] MEDS: METOPROLOL SUCC 50MG EXT REL TAB PO SCH (08:27)
[2021-12-31] MEDS: PANTOprazole 40 MG TAB PO SCH ×2 (08:29→20:35)
[2021-12-31] MEDS: TAMSULOSIN HCL 0.4 MG CAP PO SCH (08:29)
[2021-12-31] MEDS: OXYBUTYNIN CHLORIDE 5 MG TAB PO SCH (08:29)
[2021-12-31 08:33] LABS: BUN Creatinine Ratio 7.3 (10-20); Creatinine Clr Calc Pharmacy 41.1 ml/min; Est GFR (African American) 51.7 ml/min; Est GFR (Non-African American) 44.6 ml/min; Magnesium 1.4 mg/dl (1.7-2.4); Potassium 3.5 mmol/L (3.5-5.1)
[2021-12-31] MEDS: cefTRIAXone SODIUM 2,000 MG in DEXTROSE 5% 50 ML IV SCH (08:35)
[2021-12-31] MEDS: CHOLESTYRAMINE LIGHT 4 GM PKT PO SCH ×2 (10:01→21:17)
[2021-12-31] MEDS: INSULIN ASPART PER UNIT SC SCH ×4 (10:45→20:35)
[2021-12-31] MEDS: MoRPHine SULFATE 2 MG/ML CARP IV PRN (12:52)
--- NOTE | 2021-12-31 14:32 | Hospitalist Progress Note ---
Date of Service December 31, 2021 Assessment & Plan (1) Recurrent UTI: (2) Nausea and vomiting: (3) Bilateral nephrolithiasis: Plan: Patient presented from home with reports of intractable nausea and vomiting. Recent hospitalizations for same In the ED, UA suggestive of UTI. Patient was tachycardic ID recommendations noted. Patient had been transferred previously for IR eval of left renal cyst but no procedure was recommended at that time. 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 - 12/28/21, prior provider discussed with ID--recommend repeat urine culture from straight cath. Patient initially refused then agreed. Repeat urine culture 12/28 (via straight cath) only grew yeast -Patient's PCP had called on 12/25/21. She reported patient has transport probl ems for outpatient appointments and she would benefit from having her left ureteral stent removed here prior to discharge. I discussed with Urology today and they do not plan to remove/exchange her stent here, again, recommendations will be for outpatient. CM contacted to help patient set up transportation for her appointments--> she is already connected with [facility] for transport -12/31 with her final urine culture being negative, I discussed with ID (Dr Kee) today regarding antibiotic recommendations. At discharge, she can be continued on Linezolid for VRE suppressive therapy and Augmentin for pansensitive Klebsiella suppressive therapy for 7 more days (total 14 days). She is at risk for recurrent UTI with her ureteral stent, I have reached out to Urology and they will work on arranging for her stent removal next week. (4) Acute kidney injury superimposed on CKD: Plan: On admission, creatinine 3.1, Baseline low-mid 1's Likely prerenal in nature due to vomiting and poor intake Cr improved, now back to baseline Continue IVF due to poor oral intake Nephrology on board Avoid nephrotoxins (5) CKD (chronic kidney disease), stage III: (6) History of TIA (transient ischemic attack): Plan: Continue clopidogrel (7) Bipolar disorder: Plan: Previously prescribed oxcarbazepine, does not seem as though patient has been taking this medication recently Likely will need outpatient follow-up with psychiatry (8) Chronic anemia: Plan: Hgb 12.7, likely hemoconcentrated due to dehydration Baseline hemoglobin ~ 8.0 (9) Chronic respiratory failure with hypoxia: (10) COPD (chronic obstructive pulmonary disease): Plan: On chronic 2 L of oxygen No signs of acute exacerbation Continue home inhalers (11) DM type 2 (diabetes mellitus, type 2): Plan: Hgb A1c 6.1 10/2021 Hold oral agents and utilize NovoLog per protocol while hospitalized (12) Sinus tachycardia: Plan: Controlled on metoprolol (13) CALI (obstructive sleep apnea): Plan: Had been on CPAP in the remote past, outpatient sleep study pending (14) DVT prophylaxis: Plan: sq heparin Plan: Hematochezia -resolved -Patient has hx of colectomy -GI eval appreciated. -flex sig report noted -C diff negative Hypokalemia -Repleted Plan to discharge home with and home health tomorrow Admission and Anticipated Discharge Date Admission Date: December 22, 2021 Subjective No issues overnight. Remains afebrile. Abdominal/flank pain is improved Physical Exam Physical Exam: No acute distress, pleasant and comfortable Respiratory: breathing comfortably on room air, no wheezing/rhonchi/rales Cardiovascular: regular rate and rhythm, no murmurs/rubs/gallops Gastrointestinal (Abdomen): soft, non tender, non distended Musculoskeletal: no edema Neurologic: awake, alert, spontaneously moving extremities Results & Data Results & Data ([facility]) Vital Signs (Past 12 Hours) Vital Signs Temp Pulse Pulse Resp BP Pulse Ox 12/31/21 11:00 36.7 C 75 17 109/75 12/31/21 06:51 36.9 C 78 20 103/72 98 12/31/21 06:14 68 12/31/21 04:00 36.8 C 83 20 117/79 97 12/31/21 03:37 84 Laboratory Results Short CBC 12/31/21 Range/Units 07:35 WBC 6.21 (4.8-10.8) K/uL Hgb 10.1 L (12.0-16.0) g/dL Hct 32.9 L (37-47) % Plt Count 197 (130-400) K/uL BMP 12/31/21 07:35 Sodium 138 Potassium 3.5 Chloride 108 H Carbon Dioxide 23 BUN 9 Creatinine 1.24 H Glucose 95 Calcium 9.0 Medications Administered Current Inpatient Medications Acetaminophen (Acetaminophen 325 Mg Tab) 650 mg PO Q4H PRN PRN Reason: pain/fever Stop: 01/21/22 20:13 Cholestyramine Resin (Cholestyramine Light 4 Gm Pkt) 4 gm PO BID@1000,2200 [facility] Stop: 01/29/22 09:59 Last Admin: 12/31/21 10:01 Dose: 4 gm Documented by: Clopidogrel Bisulfate (Clopidogrel Bisulfate 75 Mg Tab) 75 mg PO QPM [facility] Stop: 01/21/22 20:59 Last Admin: 12/30/21 20:16 Dose: 75 mg Documented by: Dextrose (Dextrose 50% 50 Ml Syringe) 25 - 50 ml IV UD PRN; Protocol PRN Reason: Hypoglycemia Protocol Stop: 01/21/22 20:48 Fluticasone Furoate (Fluticasone Furoate 100mcg 14 Puffs/Inhaler) 1 puffs INH DAILY PRN PRN Reason: Shortness Of Breath Stop: 01/21/22 20:50 Glucagon (Glucagon For Inj 1 Mg Vial) 1 mg SQ UD PRN; Protocol PRN Reason: Hypoglycemia Protocol Stop: 01/21/22 20:48 Glucose (Glucose 40% Gel 15 Gm Tube) 15 - 30 gm PO UD PRN; Protocol PRN Reason: Hypoglycemia Protocol Stop: 01/21/22 20:48 Glucose (Glucose 10 Tabs/Tube) 4 - 8 tabs PO UD PRN; Protocol PRN Reason: Hypoglycemia Protocol Stop: 01/21/22 20:48 Heparin Sodium (Porcine) (Heparin Sod 5,000 Unit/0.5 Ml Vial) 5,000 units SQ Q8 [facility] Stop: 01/28/22 21:59 Last Admin: 12/31/21 05:51 Dose: 5,000 units Documented by: Ceftriaxone Sodium 2,000 mg/ (Dextrose) 70 mls @ 100 mls/hr IV Q24H [facility]; Protocol Stop: 01/03/22 08:59 Last Infusion: 12/31/21 09:17 Dose: Infused Documented by: Promethazine HCl 12.5 mg/ (Sodium Chloride) 50.5 mls @ 202 mls/hr IV Q6H [facility] Stop: 01/26/22 15:59 Last Infusion: 12/31/21 10:00 Dose: Infused Documented by: Daptomycin 500 mg/ Syringe 10 mls @ 5 mls/min IV Q24H [facility]; Protocol Stop: 01/01/22 20:59 Last Admin: 12/30/21 20:32 Dose: 5 mls/min Documented by: Insulin Aspart (Insulin Aspart Per Unit) 0 units SC ACHS [facility] Stop: 01/23/22 16:29 Last Admin: 12/31/21 12:45 Dose: 1 units Documented by: Lidocaine (L[facility]ocaine 5% 1 Patch) [facility] [place] [facility] [place]: 01/23/22 09:44 Last Admin: 12/31/21 08:26 Dose: 1 patch Documented by: Loperamide HCl (Loperamide Hcl 2 Mg Cap) 2 mg PO TID PRN PRN Reason: Diarrhea Stop: 01/29/22 08:59 Last Admin: 12/30/21 15:24 Dose: 2 mg Documented by: Metoprolol Succinate (Metoprolol Succ 25mg Ext Rel Tab) 25 mg PO PM [facility] Stop: 01/21/22 20:59 Last Admin: 12/30/21 20:16 Dose: 25 mg Documented by: Metoprolol Succinate (Metoprolol Succ 50mg Ext Rel Tab) [facility] [place]: 01/24/22 08:59 Last Admin: 12/31/21 08:27 Dose: 50 mg Documented by: Miscellaneous (Carbohydrates For Hypoglycemia ) 15 - 30 gm PO UD PRN PRN Reason: Hypoglycemia Protocol Stop: 01/21/22 20:48 Miscellaneous (Remove Lidoderm Patch) 1 ea N/A DAILY@2100 [facility] Stop: 01/23/22 20:59 Last Admin: 12/30/21 20:17 Dose: 1 ea Documented by: Miscellaneous Information (Daptomycin Consult Active) 1 ea N/A UD PRN PRN Reason: Consult Stop: 01/21/22 18:13 Morphine Sulfate (Morphine Sulfate 2 Mg/Ml Carp) 2 mg IV Q4 PRN PRN Reason: Pain Stop: 01/13/22 13:49 Last Admin: 12/31/21 12:52 Dose: 2 mg Documented by: Ondansetron HCl (Ondansetron Inj 2 Mg/Ml 2 Ml Vial) 4 mg IV Q6H PRN PRN Reason: Nausea Stop: 01/21/22 20:13 Last Admin: 12/28/21 20:27 Dose: 4 mg Documented by: Oxybutynin Chloride (Oxybutynin Chloride 5 Mg Tab) [facility] [place]: 01/23/22 09:44 Last Admin: 03/24/22 08:29 Dose: 5 mg Documented by: Pantoprazole Sodium (Pantoprazole 40 Mg Tab) 40 mg PO BID [facility] Stop: 01/21/22 20:59 Last Admin: 12/31/21 08:29 Dose: 40 mg Documented by: Tamsulosin HCl (Tamsulosin Hcl 0.4 Mg Cap) 0.4 mg PO DAILY [facility] Stop: 01/22/22 08:59 Last Admin: 12/31/21 08:29 Dose: 0.4 mg Documented by: Umeclidinium/Vilanterol (Umeclidinium/Vilanterol 62.5/25mcg 7 Puffs/Inhaler) 1 puffs INH DAILY PRN PRN Reason: Shortness Of Breath Stop: 01/21/22 20:50
[2021-12-31] MEDS: CLOPIDOGREL BISULFATE 75 MG TAB PO SCH (20:35)
[2021-12-31] MEDS: DAPTOmycin 500 MG in SYRINGE 0 ML IV SCH (20:35)
[2021-12-31] MEDS: METOPROLOL SUCC 25MG EXT REL TAB PO SCH (20:42)
[2022-01-01] MEDS: MoRPHine SULFATE 2 MG/ML CARP IV PRN (04:03)
[2022-01-01] MEDS: PROMETHAZINE HCL 12.5 MG in SODIUM CHLORIDE 0.9% 50 ML IV SCH ×2 (04:08→11:52)
[2022-01-01] MEDS: HEPARIN SOD 5,000 UNIT/0.5 ML VIAL SQ SCH (05:04)
[2022-01-01] MEDS: cefTRIAXone SODIUM 2,000 MG in DEXTROSE 5% 50 ML IV SCH (07:31)
[2022-01-01] MEDS: TAMSULOSIN HCL 0.4 MG CAP PO SCH (07:34)
[2022-01-01] MEDS: PANTOprazole 40 MG TAB PO SCH (07:34)
[2022-01-01] MEDS: OXYBUTYNIN CHLORIDE 5 MG TAB PO SCH (07:34)
[2022-01-01] MEDS: METOPROLOL SUCC 50MG EXT REL TAB PO SCH (07:35)
[2022-01-01] MEDS: CHOLESTYRAMINE LIGHT 4 GM PKT PO SCH (07:35)
[2022-01-01] MEDS: LIDOCAINE 5% 1 PATCH TD SCH (09:00)
[2022-01-01] MEDS: INSULIN ASPART PER UNIT SC SCH ×2 (09:45→12:26)
[2022-01-01] MEDS ORDERED: LINEZOLID 600 MG TAB PO ONE (12:45)
[2022-01-02] MEDS ORDERED: LINEZOLID 600 MG TAB PO SCH
--- NOTE | 2022-01-02 17:37 | Discharge Summary ---
Date of Service January 02, 2022 Admission HPI Per Admitting Provider 66-year-old female with PMH DM type II, dyslipidemia, COPD on chronic 2 L of oxygen, CALI, HTN, CKD stage IV, bipolar disorder, history of colon cancer s/p colectomy, renal calculi, and other problems listed below who presents the ED for evaluation of vomiting. Summary of recent hospitalizations: 10/11/2021-10/24/2021: Patient admitted for management of 5 mm obstructing calculus just above the left vesicoureteral junction. S/p cystoscopy with left retrograde pyelogram aspiration and stent placement by Dr. Adam on 10/12. Hospital course complicated by acute respiratory acidosis requiring intubation. 10/30/2021-11/09/2021: Patient admitted for COVID-19 pneumonia. Required only a small amount of supplemental oxygen. Completed a course of Decadron. 11/18/2021 -12/06/2021 (transferred to [facility], discharge 12/11/2021): Patient admitted for flank pain, UTI, left renal cyst Urine culture from 11/17 grew Klebsiella, urine culture from 11/26 grew Enterococcus, urine culture from 12/06 grew VRE. There was concern for possible development of abscess/infected cyst. Patient transferred to [facility] for further management and possible IR drainage. Per [facility] discharge summary, "Urology consulted and recommended repeat renal ultrasound to evaluate cyst. Imaging revealed stable, simple cysts unchanged from prior imaging; no concern for infection & no need for drainage. Infectious disease consulted and recommended discontinuing antibiotics given no concern for renal abscess, urine culture during this hospital stay with no growth, and adequate treatment of prior UTIs." Patient presents today stating that she has been vomiting since being discharged from [facility]. She has been unable to take any of her medications. Patient was seen in PCPs office today and was sent to the ED for further evaluation. Patient reports dysuria and bladder pain. Denies hematemesis, coffee-ground emesis, bright red bleeding per rectum, dark tarry stools. No chest pain or shortness of breath. Denies fevers and chills. No lightheadedness, dizziness, diaphoresis, syncopal events. In the ED, patient is tachycardic, however blood pressure stable. She is afebrile. WBC 11 K. Creatinine 3.1 (baseline low to mid 1's). CT ABD/pelvis essentially improved/unchanged from prior. Patient was given IV morphine, IV Zofran, IV ceftriaxone and IVF. Principal Diagnosis Complicated UTI Left ureteral stent, present on admission Bilateral nephrolithiasis Left kidney cyst PERRI on CKD stage 3 Hypokalemia Discharge Exam No acute distress, non toxic Breathing comfortably on 2L NC which is her baseline, no wheezing/rhonchi/rales Regular rate and rhythm No leg swelling Discharge Data Allergies Allergy/AdvReac Type Severity Reaction Status Date / Time fentanyl Allergy Severe itching/felt Verified 11/17/21 20:25 like throat closing salicylates Allergy Severe SHORTNESS Verified 11/17/21 20:25 OF BREATH Iodinated Contrast Media Allergy Intermediate EYES Verified 11/17/21 20:25 SWELLING/Hives amoxicillin [From Augmentin] Allergy Mild Rash Verified 11/17/21 20:25 aspirin Allergy Mild FACIAL Verified 11/17/21 20:25 SWELLING clavulanic acid Allergy Mild Rash Verified 11/17/21 20:25 [From Augmentin] hydromorphone Allergy Mild RASH/ITCHIN Verified 11/17/21 20:25 G meperidine AdvReac Intermediate ITCH Verified 11/17/21 20:25 morphine AdvReac Intermediate ITCH Verified 11/17/21 20:25 tramadol AdvReac Mild itch Verified 11/17/21 20:25 Consultations 12/22/21 18:53 ED Decision to Admit Stat 12/22/21 20:14 Consult Infectious Diseases Routine Consult Urology Routine 12/23/21 09:05 Consult Nephrology Routine 12/25/21 11:35 Consult Gastroenterology Routine Procedures Performed Operation Date: 12/29/21 17:15 Actual Procedures p Flexible Sigmoidoscopy - Venkat Thomas MD Ordered Studies 12/22/21 13:37 CT abd pelvis wo con Stat 12/27/21 10:15 CT abd pelvis wo con Urgent Hospital Course (1) Recurrent UTI: (2) Nausea and vomiting: (3) Bilateral nephrolithiasis: Patient presented from home with reports of intractable nausea and vomiting. Recent hospitalizations for same In the ED, Urinalysis was suggestive of UTI however urine culture ultimately grew multiple agnes likely contaminant. A repeat urinalysis on 12/28 via straight cath only grew yeast. Infectious Disease was consulted and she was recommended to be on Ceftriaxone and Daptomycin for her history of VRE and Klebsiella UTI. She finished 7 days of IV antibiotics and at discharge will return home on Vantin and Linezolid for another 8 days (total 15 day course) She was seen by Urology here and no acute surgical intervention was planned in the hospital but she will follow up with them on 01/06 for her stent to be removed. She will continue her antibiotics for a couple days after her stent removal to ensure complete treatment. Patient's PCP reached out to us to express their concern that patient has difficulty attending her appointments, she is transported to her appointments via [facility] and CM reached out to them to reinitiate service here. Patient was advised to coordinate her van service to ensure she has transportation to her office visits, especially the upcoming Urology visit for her stent removal on 01/06. (4) Acute kidney injury superimposed on CKD: On admission, creatinine 3.1, Baseline low-mid 1's Likely prerenal in nature due to vomiting and poor intake Resolved with IVF (5) CKD (chronic kidney disease), stage III: (6) History of TIA (transient ischemic attack): Continue clopidogrel (7) Bipolar disorder: Previously prescribed oxcarbazepine, does not seem as though patient has been taking this medication recently Will need outpatient follow-up with psychiatry (8) Chronic anemia: Hgb 12.7, likely hemoconcentrated due to dehydration Baseline hemoglobin ~ 8.0 (9) Chronic respiratory failure with hypoxia: (10) COPD (chronic obstructive pulmonary disease): On chronic 2 L of oxygen No signs of acute exacerbation Continue home inhalers (11) DM type 2 (diabetes mellitus, type 2): Hgb A1c 6.1 10/2021 Hold oral agents and utilize NovoLog per protocol while hospitalized Resume home medications at discharge (12) Sinus tachycardia: (13) CALI (obstructive sleep apnea): Had been on CPAP in the remote past, outpatient sleep study pending (14) DVT prophylaxis: Hematochezia -resolved -Patient has history of colectomy -Evaluated by GI here and she underwent flex sigmoidoscopy which revealed healthy mucosa and evidence of anastamosis, biopsy was negative for inflammatory process -C diff negative Hypokalemia -Repleted Patient is discharged home with and home health Home Health Attestation I certify that this patient is under my care and that I, or a physicians sourcing assistant working with me, had a face to-face encounter that meets the home health daie-iu-atse encounter requirements with this patient. The encounter with the patient was in whole, or in part, for the following medical condition, which is the primary reason for home health care (list medical condition): I certify that, based on my findings, the following services are medically necessary home health services: My clinical findings support the need for the above services because: OT Assess ADL Status and Restore Function w ADLs PT Assessment for Endurance / Balance / Strength PT Eval for Safety and Mobility PT Eval for Safety, Gait Training, Assistive Devices PT Gait and Balance Training, Strengthening and Safety Skilled Nsg Assessment Vital Signs Further, I certify that my clinical findings support that this patient is homebound (i.e. absences from home require considerable and taxing effort and are for medical reasons or nondenominational services or infrequently or of short duration when for other reasons) because: Transportation Assistance/Unable to Leave Home Unassisted Certification for Home Health Services: Based on the above findings, I certify that this patient is confined to the home and needs intermittent longterm care, physical therapy and/or speech therapy or continues to need occupational therapy. The patient is under my care, and I have initiated the establishment of the plan of care. This patient will be followed by a physician who will periodically review the plan of care. Total Time Total Time Spent Total Time Spent (In Minutes): 40 Discharge Plan Discharge Items Patient Disposition: Home - Home Health Services Reason For Visit: UTI, PERRI Discharge Diagnosis: Complicated UTI Left ureteral stent, present on admission Bilateral nephrolithiasis Left kidney cyst PERRI on CKD stage 3 Activity: Resume your previous activity Non-emergency contact: Primary Care Provider and Urologist Call non-emergency contact if: you have any medication questions, your symptoms worsen and you have a fever Follow-up/Referrals: [facility] [Other] - 01/20/22 1:00 pm (Date & Time 01/20/2022 1:00 PM Provider Maribel Orta PA-C Department Nephrology [facility] ) Rajan Adam DO [Physician] - 01/06/22 9:15 am ([facility] [address] [place] [address] ) Lo Chand DO [Primary Care Provider] - 01/08/22 10:30 am (Date & Time 01/08/2022 10:30 AM Provider Lo Chand DO Department Family Medicine [facility] ) Diet: Carb Consistent or DM2 and Heart Healthy Addtl Attending Provider Instructions: [facility]: You are scheduled for a stent removal with Dr. Adam on 01/06/22 at 9:15 am. Location: [address] [place] [address]. Please call our office at [phone] if you have any questions or concerns. You were discharged on Linezolid and Augmentin for your UTI for another 7 days. Please finish these antibiotics as prescribed Pending Studies at Discharge: No Stand-Alone Forms: [facility], Smoking Cessation Medications and DC Order Prescriptions: New lidocaine 5 % Adhesive Patch,Medicated 1 patch transdermal QAM 14 Days Qty: 14 RF: 0 oxybutynin chloride 5 mg Tablet 5 mg PO QAM 30 Days Qty: 30 RF: 0 linezolid 600 mg tablet 600 mg PO BID Qty: 16 RF: 0 cefpodoxime 200 mg tablet 200 mg PO BID Qty: 16 RF: 0 Continued ondansetron 4 mg tablet,disintegrating 4 mg PO Q8H PRN (Reason: nausea and vomiting) Qty: 10 RF: 0 metoprolol succinate 50 mg tablet extended release 24 hr 50 mg PO QAM RF: 0 Trelegy Ellipta 100-62.5-25 mcg blister with device 1 inh inhalation DAILY PRN (Reason: Shortness Of Breath) RF: 0 metoprolol succinate 25 mg tablet extended release 24 hr 25 mg PO PM RF: 0 albuterol sulfate 90 mcg/actuation Hfa Aerosol Inhaler 2 puff INHALATION Q4H PRN (Reason: Shortness Of Breath) RF: 0 magnesium oxide 400 mg magnesium Tablet 400 mg PO HS RF: 0 atorvastatin [Lipitor] 40 mg Tablet 40 mg PO QPM RF: 0 clopidogrel [Plavix] 75 mg Tablet 75 mg PO QPM RF: 0 pantoprazole [Protonix] 40 mg Tablet,Delayed Release (Dr/Ec) 40 mg PO BID RF: 0 riboflavin (vitamin B2) 400 mg Tablet 400 mg PO QPM RF: 0 cholecalciferol (vitamin D3) [Vitamin D3] 2,000 unit Capsule 2,000 unit PO QAM RF: 0 acetaminophen [Tylenol Extra Strength] 500 mg Tablet 1,000 mg PO AMHS RF: 0 tamsulosin 0.4 mg capsule 0.4 mg PO DAILY RF: 0 oxcarbazepine 300 mg tablet 300 mg PO BID RF: 0 loperamide 2 mg Capsule 2 mg PO TID PRN (Reason: diarrhea) Qty: 30 RF: 0 glipizide [Glucotrol XL] 2.5 mg tablet extended release 24hr 2.5 mg PO PM RF: 0 phenazopyridine [Pyridium] 100 mg Tablet 100 mg PO TID PRN (Reason: bladder spasms) Qty: 30 RF: 0 Discontinued oxycodone 5 mg tablet 5 mg PO BID PRN (Reason: Pain) RF: 0 Discharge Orders: Discharge Order (Routine); Ordered 01/01/22 Ordered By: Enrique Garcia Admission Data Admit Date/Time: 12/22/21 18:35 Attending Provider: Enrique Garcia Admit Provider: Jodie El Primary Care Provider: Lo Chand Other Providers: Jodie El ; Gianfranco Mota ; Arlene Leavitt ; Cyrus Jo I. ; Donell Kee II ; Maribel Sanders ; Francisco Javier Wray ; Martin Lambert ; Javi Stein ; Ronda Niño ; Betsy Rey ; [place],[facility] ; Anahi Moore I. ; [facility] Other Interventions: Discharge Summary Assessment (RN) Last Done: 01/01/22 12:42
== END 2022-01-01 15:30 | disposition home health service (06) | DRG 690 ==
LOC: ED 13:06 → SUATTDRO 18:35 → 2W 18:35

== ENCOUNTER 2022-01-07 12:44 | Inpatient (IN) ==
--- NOTE | 2022-01-07 12:47 | Emergency Department Note ---
Impression & Plan Complicated urinary tract infection, Nausea vomiting and diarrhea, Acute dehydration, Hypomagnesemia, Hypokalemia ED Provider Note NAME: NAYELI GUERRERO AGE: 66 SEX: F : 1955 ARRIVES VIA: Ambulance INFORMANT: Patient, ED PROVIDER(S): Skip Damico MD Chief Complaint: HPI: Patient presents from home due to concern for inability to tolerate by mouth, nausea vomiting and diarrhea. The patient states that she has had several episodes of nonbloody emesis today and has been unable to take her medications. The patient did have a recent admission and was discharged on Tuesday. The patient's last intake was yesterday. The patient denies any fevers but has had some chills. The patient has had productive cough with whitish sputum. No blood in the sputum. The patient does have chronic lower extremity edema which is unchanged from prior. The patient does complain of left-sided lower abdominal pain and and suprapubic pain along with burning with urination. The patient denies any blood in the urine. The patient states that she is been having loose bowel movements but without any blood. Upon review of the patient's medical records: Patient had been admitted at the beginning of October where the patient did have a left UVJ obstruction that resulted in associated respiratory acidosis r equiring intubation. Patient was subsequently admitted later in the month for 10 days due to COVID-19 pneumonia. Patient was most recently discharged on but was transferred to [facility] at that time and discharged on December 11, 2021. Patient had been admitted at that time due to concern for Klebsiella associated UTI and Enterococcus and subsequent VRE. There was concern for development of abscess or infected cyst and was transferred to [facility] for further management possible IR drainage. Urology had been consulted at that time and recommended repeat renal ultrasound to evaluate her cyst. They did not feel as though there was a need for any IR drainage at that time. Infectious disease have been consulted and recommended discontinuing antibiotics as it was not a concern for renal abscess. Patient presented most recently back on December 28 and was admitted for recurrent UTI nausea vomiting. Patient did have associated PERRI at that time as well. Patient was on Rocephin and daptomycin given her history of VRE and Klebsiella UTI. The patient finished 7 days of IV antibiotics and was to return home on Vantin and linezolid for another 8 days at the time of discharge which would have been January 03. ROS: See HPI for pertinent positives and negatives. A total of 10 systems were reviewed and otherwise negative. Past medical history: See below Surgical history: See below Social history: See below Physical Exam: GENERAL: NAD, non-toxic. EYE EXAM: Normal conjunctiva. PERRL, no anisocoria and EOM's grossly intact w/o pain. NECK: Supple, no nuchal rigidity, no adenopathy, non-tender. No signs of meningismus. LUNGS: Clear to auscultation. Normal chest wall mechanics. HEART: Tachycardic and regular no MRG. ABDOMEN: Abdomen soft, non-tender, normo-active bowel sounds, no masses, no rebound or guarding. BACK: No CVA TTP. SKIN: No rashes and no bruising. UPPER EXTREMITIES: Upper extremities are grossly normal. LOWER EXTREMITIES: Grossly normal, no edema. NEURO EXAM: A&O x3, cranial nerves II-XII grossly intact, normal speech, moves all 4 extremities on command w/o issue. Differential diagnoses: Sepsis, UTI, pneumonia, metabolic, electrolyte abnormalities, cardiac sources, intracerebral event, toxicologic, neurologic, as well as other pathologies. Course: Patient was seen and evaluated the bedside. Full history physical exam was performed. EKG interpreted by me Is tachycardia, rate of 111, normal intervals, normal axis, Q waves in 3 and aVF as well as in V3 and laterally. Imaging Studies: See Below Cardiac monitoring: An order was placed for continuous cardiac monitoring. The monitor shows a rate of 102 with tachycardic and regular rhythm. MDM: Patient was seen due to concern for nausea vomiting and diarrhea. The patient has had a number of hospitalizations and prolonged hospital stays due to recurrent UTIs and initially began secondary to an infected kidney stone. Patient did have blood work completed along with empiric treatment with IV fluids and antibiotics. Patient today has a normal white count but does have a mild left shift. The patient's hemoglobin is virtually normal at 11.8. The patient's kidney function does show a creat of 1.5. Very mild hypokalemia 3.3. Patient does have very mild hypomagnesemia and transaminitis. Troponin is undetectable. Urinalysis does show the possibility of infection as the patient does have leukocytes and whites but there are numerous epithelial cells. Covid negative chest x-ray is clear. I did speak with the on-call hospitalist Susan Ozuna PA-C and the patient was made by Dr. Turner. At the time of admission I did order a CAT scan of the abdomen pelvis without contrast to reevaluate the patient's prior ureteral stent and kidneys. This was pending at the time of admission. Past Med/Surg History Medical History Anxiety Asthma well controlled per pt, rare inh use Bipolar disorder Chronic back pain Chronic headaches Chronic renal insufficiency stage 3, following with [facility] nephrology ([place]) Chronic respiratory failure with hypoxia CKD (chronic kidney disease), stage III COPD (chronic obstructive pulmonary disease) Deep vein thrombosis LLE - COULD NOT RECALL DATE - REPORTS SHE WAS TREATED AT [facility] W/ BLOOD THINNERS Depression DM type 2 (diabetes mellitus, type 2) GERD (gastroesophageal reflux disease) History of colon cancer 2012 S/P BOWEL RESECTION. History of COVID-27 Sep 2020 HTN (hypertension) Hyperlipidemia Kidney stone Myocardial Infarction 06/2016--> [facility] -- CARDIAC CATH --> normal coronary anatomy without coronary obstruction but Plavix started per [facility] discharge summary On anticoagulant therapy plavix daily CALI (obstructive sleep apnea) Poor historian Renal colic s/p L ureteral stent 10/2021 followed by lithotripsy, stone extraction and stent exchange 11/2021 Renal cyst 7 cm thick walled as of early 2021 Takotsubo cardiomyopathy History of in 2015 with return to normal LV function Surgical History H/O hand surgery RIGHT History of appendectomy History of bilateral cataract extraction History of blepharoplasty History of cardiac cath 03/2018 - [place] - DENIES STENTS/ANGIOPLASTY - [facility] - FOLLOWS W/ DR. TORRES History of closure of ileostomy History of colectomy due to colon cancer History of colonoscopy History of cystoscopy History of esophageal dilatation History of esophagogastroduodenoscopy (EGD) History of hysterectomy History of kidney surgery at age 9 yrs "something was wrong and had to fix it" History of lithotripsy History of tooth extraction History of total abdominal hysterectomy and bilateral salpingo-oophorectomy Hx of cholecystectomy Family History Other Breast cancer Social History Smoking Status: Never smoker Second Hand Exposure: No; Hx Alcohol Use: No Hx Substance Use: No Preferred Language: Armenian Communication Ability: Effective Visual Impairment: No Limitations Hearing Ability: Normal Log Sorting Supervisor Required: No Beliefs That Will Affect Care: None marital status: Current Living Situation: Alone Current Living Situation Comment: [facility]. [facility] Feels Safe at Home: Yes Safety Concerns: Feels Safe At This Time Assistive Devices: None Allergies Allergies Allergy/AdvReac Type Severity Reaction Status Date / Time fentanyl Allergy Severe itching/felt Verified 01/07/22 14:55 like throat closing salicylates Allergy Severe SHORTNESS Verified 01/07/22 14:55 OF BREATH Iodinated Contrast Media Allergy Intermediate EYES Verified 01/07/22 14:55 SWELLING/Hives amoxicillin [From Augmentin] Allergy Mild Rash Verified 01/07/22 14:55 aspirin Allergy Mild FACIAL Verified 01/07/22 14:55 SWELLING clavulanic acid Allergy Mild Rash Verified 01/07/22 14:55 [From Augmentin] hydromorphone Allergy Mild RASH/ITCHIN Verified 01/07/22 14:55 G meperidine AdvReac Intermediate ITCH Verified 01/07/22 14:55 morphine AdvReac Intermediate ITCH Verified 01/07/22 14:55 tramadol AdvReac Mild itch Verified 01/07/22 14:55 Home Meds Home Medications Medication Instructions Recorded Confirmed atorvastatin 40 mg tablet (Lipitor) 40 mg PO QPM 07/12/18 01/07/22 clopidogrel 75 mg tablet (Plavix) 75 mg PO QPM 07/12/18 01/07/22 pantoprazole 40 mg tablet,delayed 40 mg PO BID 07/12/18 01/07/22 release (Protonix) riboflavin (vitamin B2) 400 mg 400 mg PO QPM 07/12/18 01/07/22 tablet cholecalciferol (vitamin D3) 50 2,000 unit PO QAM 05/16/19 01/07/22 mcg (2,000 unit) capsule (Vitamin D3) albuterol sulfate 90 mcg/actuation 2 puff INHALATION Q4H PRN 07/21/19 01/07/22 aerosol inhaler magnesium oxide 400 mg PO HS 10/05/19 01/07/22 fluticasone fur. 100 mcg-umeclid 1 inh INHALATION DAILY PRN 12/11/20 01/07/22 62.5 mcg-vilant 25 mcg inhalat.powder (Trelegy Ellipta) metoprolol succinate 25 mg 25 mg PO PM tab 12/11/20 01/07/22 tablet,extended release 24 hr metoprolol succinate 50 mg 50 mg PO QAM 12/11/20 01/07/22 tablet,extended release 24 hr glipizide 2.5 mg tablet, extended 2.5 mg PO PM 04/29/21 01/07/22 release 24 hr (Glucotrol XL) acetaminophen 500 mg tablet 1,000 mg PO AMHS 10/11/21 01/07/22 (Tylenol Extra Strength) oxcarbazepine 300 mg tablet 300 mg PO BID 12/22/21 01/07/22 tamsulosin 0.4 mg capsule 0.4 mg PO DAILY 12/22/21 01/07/22 Previous Rx's Medication Instructions Recorded ondansetron 4 mg disintegrating 4 mg PO Q8H PRN #10 tab 06/02/21 tablet phenazopyridine 100 mg tablet 100 mg PO TID PRN #30 tab 11/09/21 (Pyridium) cefpodoxime 200 mg tablet 200 mg PO BID #16 tab 01/01/22 lidocaine 5 % topical patch 1 patch TRANSDERMAL QAM 14 Days 01/01/22 #14 ea linezolid 600 mg tablet 600 mg PO BID #16 tab 01/01/22 loperamide 2 mg capsule 2 mg PO TID PRN #30 cap 01/01/22 oxybutynin chloride 5 mg tablet 5 mg PO QAM 30 Days #30 tab 01/01/22 Results & Data (ED) Vital Signs Vital Signs - 24 hr 01/07/22 12:49 01/07/22 13:04 01/07/22 13:59 Temperature 36.8 C Temperature Source Oral Pulse Rate 112 H 115 H Pulse Rate [Apical] 115 H Pulse Rhythm [Apical] Pulse Strength [Apical] Respiratory Rate 18 18 18 Respiratory Effort / Characteristics Non-Labored Spontaneous Non-Labored Spontaneous Respiratory Depth Normal Respiratory Pattern Regular Blood Pressure 153/107 H Blood Pressure [Right Arm] 153/107 H Blood Pressure Mean 122 Blood Pressure Mean [Right Arm] 122 Blood Pressure Position Sitting Blood Pressure Position [Right Arm] Sitting Pulse Oximetry 98 95 95 Oxygen Delivery Method Room Air Room Air Room Air Sepsis Recent Fever Within 48 Hours Yes Sepsis New/Unexplained Change in Mental Status N/A Sepsis Action Taken by Nursing No Action Required 01/07/22 14:00 01/07/22 15:00 01/07/22 15:29 Temperature Temperature Source Pulse Rate Pulse Rate [Apical] 101 H Pulse Rhythm [Apical] Regular Pulse Strength [Apical] Normal Respiratory Rate 18 19 19 Respiratory Effort / Characteristics Non-Labored Spontaneous Non-Labored Spontaneous Non-Labored Spontaneous Respiratory Depth Normal Respiratory Pattern Blood Pressure Blood Pressure [Right Arm] 135/92 Blood Pressure Mean Blood Pressure Mean [Right Arm] 106 Blood Pressure Position Blood Pressure Position [Right Arm] Lying Pulse Oximetry 97 95 95 Oxygen Delivery Method Room Air Room Air Room Air Sepsis Recent Fever Within 48 Hours Sepsis New/Unexplained Change in Mental Status Sepsis Action Taken by [facility] Medications Current Medication List: was personally reviewed by me Laboratory Data Attestation: I reviewed the patient's lab results. Result diagrams: 01/07/22 13:46 01/07/22 13:46 Lab Results 01/07/22 01/07/22 01/07/22 Range/Units 12:59 13:16 13:46 WBC 10.76 (4.8-10.8) K/uL RBC 3.96 L (4.2-5.4) M/uL Hgb 11.8 L (12.0-16.0) g/dL Hct 36.4 L (37-47) % MCV 91.9 (80-100) fL MCH 29.8 (25-34) pg MCHC 32.4 (32-36) g/dL RDW Std Deviation 47.2 H (36.4-46.3) fL RDW Coeff of Teresa 14.1 (11.5-14.5) % Plt Count 359 (130-400) K/uL MPV 11.1 H (7.4-10.4) fL Immature Gran % (Auto) 0.8 % Neut % (Auto) 70.6 % Lymph % (Auto) 13.5 % [place] % (Auto) 10.7 % Eos % (Auto) 4.1 % Baso % (Auto) 0.3 % Neut # (Auto) 7.60 H (1.4-6.5) K/uL Lymph # (Auto) 1.45 (1.2-3.4) K/uL [place] # (Auto) 1.15 H (0.11-0.59) K/uL Eos # (Auto) 0.44 (0-0.5) K/uL Baso # (Auto) 0.03 (0-0.2) K/uL Immature Gran # (Auto) 0.09 H (0.00-0.02) K/uL PT (9.0-12.0) Seconds INR (0.9-1.1) APTT (21.0-31.0) Seconds PTT Ratio Sodium (136-145) mmol/L Potassium (3.5-5.1) mmol/L Chloride (98-107) mmol/L Carbon Dioxide (21-32) mmol/L Anion Gap (3-11) BUN (6-23) mg/dl Creatinine (0.6-1.2) mg/dl Est Cr Clr Drug Dosing Est GFR ( Amer) ml/min Est GFR (Non-Af Amer) ml/min BUN/Creatinine Ratio (10-20) Glucose (70-99(Fasting)) mg/dl Lactate (0.4-2.0) mmol/L Calcium (8.5-10.1) mg/dl Magnesium (1.7-2.4) mg/dl Total Bilirubin (0.2-1.0) mg/dl AST (13-39) U/L ALT (7-52) U/L Alkaline Phosphatase (34-104) U/L Troponin I (0-0.04) ng/ml Total Protein (6.0-8.3) gm/dl Albumin (3.4-5.0) gm/dl Globulin (2.5-4.0) gm/dl Albumin/Globulin Ratio (0.9-2) Procalcitonin (0-0.5) ng/ml Urine Color Dark Yellow Urine Appearance Turbid A (Clear) Urine pH 6.0 (4.5-7.5) Ur Specific [place] 1.020 (1.000-1.030) Urine Protein 3+ H (Negative) Urine Glucose (UA) Negative (Negative) Urine Ketones 1+ H (Negative) Urine Blood 2+ H (Negative) Urine Nitrite Negative (Negative) Urine Bilirubin 1+ H (Negative) Urine Urobilinogen Negative (Negative) Ur Leukocyte Esterase 3+ H (Negative) Urine WBC (Auto) >30 H (0-5) /hpf Urine RBC (Auto) 10-30 H (0-4) /hpf U Hyaline Cast (Auto) 10-30 H (0-5) /lpf U Epithel Cells (Auto) >30 H (0-5) /lpf Urine Bacteria (Auto) Negative (Negative) Urine Yeast Not Reportable SARS-CoV-2, RNA, NAAT NEGATIVE (NEGATIVE) 01/07/22 01/07/22 01/07/22 Range/Units 13:46 13:46 13:46 WBC (4.8-10.8) K/uL RBC (4.2-5.4) M/uL Hgb (12.0-16.0) g/dL Hct (37-47) % MCV (80-100) fL MCH (25-34) pg MCHC (32-36) g/dL RDW Std Deviation (36.4-46.3) fL RDW Coeff of Teresa (11.5-14.5) % Plt Count (130-400) K/uL MPV (7.4-10.4) fL Immature Gran % (Auto) % Neut % (Auto) % Lymph % (Auto) % [place] % (Auto) % Eos % (Auto) % Baso % (Auto) % Neut # (Auto) (1.4-6.5) K/uL Lymph # (Auto) (1.2-3.4) K/uL [place] # (Auto) (0.11-0.59) K/uL Eos # (Auto) (0-0.5) K/uL Baso # (Auto) (0-0.2) K/uL Immature Gran # (Auto) (0.00-0.02) K/uL PT 10.3 (9.0-12.0) Seconds INR 1.0 (0.9-1.1) APTT 23.4 (21.0-31.0) Seconds PTT Ratio 0.9 Sodium 140 (136-145) mmol/L Potassium 3.3 L (3.5-5.1) mmol/L Chloride 104 (98-107) mmol/L Carbon Dioxide 24 (21-32) mmol/L Anion Gap 12 H (3-11) BUN 8 (6-23) mg/dl Creatinine 1.53 H (0.6-1.2) mg/dl Est Cr Clr Drug Dosing Not Reportable Est GFR ( Amer) 40.1 ml/min Est GFR (Non-Af Amer) 34.6 ml/min BUN/Creatinine Ratio 5.2 L (10-20) Glucose 126 H (70-99(Fasting)) mg/dl Lactate 1.2 (0.4-2.0) mmol/L Calcium 9.9 (8.5-10.1) mg/dl Magnesium 1.6 L (1.7-2.4) mg/dl Total Bilirubin 0.5 (0.2-1.0) mg/dl AST 75 H (13-39) U/L ALT 60 H (7-52) U/L Alkaline Phosphatase 111 H (34-104) U/L Troponin I < 0.03 (0-0.04) ng/ml Total Protein 7.2 (6.0-8.3) gm/dl Albumin 3.7 (3.4-5.0) gm/dl Globulin 3.5 (2.5-4.0) gm/dl Albumin/Globulin Ratio 1.1 (0.9-2) Procalcitonin (0-0.5) ng/ml Urine Color Urine Appearance (Clear) Urine pH (4.5-7.5) Ur Specific [place] (1.000-1.030) Urine Protein (Negative) Urine Glucose (UA) (Negative) Urine Ketones (Negative) Urine Blood (Negative) Urine Nitrite (Negative) Urine Bilirubin (Negative) Urine Urobilinogen (Negative) Ur Leukocyte Esterase (Negative) Urine WBC (Auto) (0-5) /hpf Urine RBC (Auto) (0-4) /hpf U Hyaline Cast (Auto) (0-5) /lpf U Epithel Cells (Auto) (0-5) /lpf Urine Bacteria (Auto) (Negative) Urine Yeast SARS-CoV-2, RNA, NAAT (NEGATIVE) 01/07/22 Range/Units 13:46 WBC (4.8-10.8) K/uL RBC (4.2-5.4) M/uL Hgb (12.0-16.0) g/dL Hct (37-47) % MCV (80-100) fL MCH (25-34) pg MCHC (32-36) g/dL RDW Std Deviation (36.4-46.3) fL RDW Coeff of Teresa (11.5-14.5) % Plt Count (130-400) K/uL MPV (7.4-10.4) fL Immature Gran % (Auto) % Neut % (Auto) % Lymph % (Auto) % [place] % (Auto) % Eos % (Auto) % Baso % (Auto) % Neut # (Auto) (1.4-6.5) K/uL Lymph # (Auto) (1.2-3.4) K/uL [place] # (Auto) (0.11-0.59) K/uL Eos # (Auto) (0-0.5) K/uL Baso # (Auto) (0-0.2) K/uL Immature Gran # (Auto) (0.00-0.02) K/uL PT (9.0-12.0) Seconds INR (0.9-1.1) APTT (21.0-31.0) Seconds PTT Ratio Sodium (136-145) mmol/L Potassium (3.5-5.1) mmol/L Chloride (98-107) mmol/L Carbon Dioxide (21-32) mmol/L Anion Gap (3-11) BUN (6-23) mg/dl Creatinine (0.6-1.2) mg/dl Est Cr Clr Drug Dosing Est GFR ( Amer) ml/min Est GFR (Non-Af Amer) ml/min BUN/Creatinine Ratio (10-20) Glucose (70-99(Fasting)) mg/dl Lactate (0.4-2.0) mmol/L Calcium (8.5-10.1) mg/dl Magnesium (1.7-2.4) mg/dl Total Bilirubin (0.2-1.0) mg/dl AST (13-39) U/L ALT (7-52) U/L Alkaline Phosphatase (34-104) U/L Troponin I (0-0.04) ng/ml Total Protein (6.0-8.3) gm/dl Albumin (3.4-5.0) gm/dl Globulin (2.5-4.0) gm/dl Albumin/Globulin Ratio (0.9-2) Procalcitonin 0.07 (0-0.5) ng/ml Urine Color Urine Appearance (Clear) Urine pH (4.5-7.5) Ur Specific [place] (1.000-1.030) Urine Protein (Negative) Urine Glucose (UA) (Negative) Urine Ketones (Negative) Urine Blood (Negative) Urine Nitrite (Negative) Urine Bilirubin (Negative) Urine Urobilinogen (Negative) Ur Leukocyte Esterase (Negative) Urine WBC (Auto) (0-5) /hpf Urine RBC (Auto) (0-4) /hpf U Hyaline Cast (Auto) (0-5) /lpf U Epithel Cells (Auto) (0-5) /lpf Urine Bacteria (Auto) (Negative) Urine Yeast SARS-CoV-2, RNA, NAAT (NEGATIVE) Administered Medications Magnesium Sulfate/Dextrose (Magnesium Sulfate / D5w) 1 gm in 100 mls @ 50 mls/hr IV ONE ONE Stop: 01/07/22 19:59 Last Admin: 01/07/22 18:26 Dose: 50 mls/hr Documented by: [id number] Insulin Aspart (Insulin Aspart Per Unit) 0 units SC ACHS MARLA Stop: 02/06/22 17:59 Last Admin: 01/07/22 18:26 Dose: Not Given Documented by: [id number] Lidocaine (Lidocaine 5% 1 Patch) 1 patch TD QAM MARLA Stop: 02/06/22 17:18 Last Admin: 01/07/22 18:48 Dose: 1 patch Documented by: [id number] Miscellaneous (Patient's Height And/Or Weight Needed) 1 ea N/A Q2H MARLA Stop: 01/07/22 22:00 Last Admin: 01/07/22 18:15 Dose: 1 ea Documented by: [id number] Discontinued Medications Sodium Chloride (Nss 1000ml) 1,000 mls @ 999 mls/hr IV .Q1H1M MARLA Stop: 01/07/22 14:00 Last Infusion: 01/07/22 18:16 Dose: 0 mls/hr Documented by: [id number] Admin: 01/07/22 13:46 Dose: 999 mls/hr Documented by: [id number] Cefepime HCl (Maxipime) 2,000 mg in 20 mls @ 5 mls/min IV NOW STA; Protocol Stop: 01/07/22 12:59 Last Admin: 01/07/22 14:34 Dose: 5 mls/min Documented by: [id number] Daptomycin 500 mg/ Syringe 10 mls @ 5 mls/min IV NOW ONE; Protocol Stop: 01/07/22 12:57 Last Admin: 01/07/22 14:34 Dose: 5 mls/min Documented by: [id number] Sodium Chloride (Nss 1000ml) 500 mls @ 999 mls/hr IV .Q31M ONE Stop: 01/07/22 16:36 Last Infusion: 01/07/22 18:16 Dose: 0 mls/hr Documented by: [id number] Admin: 01/07/22 17:26 Dose: 999 mls/hr Documented by: [id number] Morphine Sulfate (Morphine Sulfate 2 Mg/Ml Carp) 2 mg IV NOW STA Stop: 01/07/22 16:07 Last Admin: 01/07/22 16:42 Dose: 2 mg Documented by: [id number] Potassium Chloride (Potassium Chloride 10 Meq Tabcr) 40 meq PO ONE ONE Stop: 01/07/22 16:04 Last Admin: 01/07/22 17:26 Dose: Not Given Documented by: [id number] Imaging Data Radiologist's Impression: Chest X-Ray 01/07/22 12:52 XR chest 1V portable CLINICAL HISTORY: SEPSIS. COMPARISON STUDY: 11/17/2021 TECHNIQUE: 1 view of the chest FINDINGS: Single frontal view of the chest demonstrates the cardiomediastinal silhouette to be within normal limits. There is again elevation of hemidiaphragms bilaterally. The lungs are clear of alveolar opacities. There is no evidence for pleural effusion. There is no evidence for vascular congestion. There is no acute osseous pathology. IMPRESSION: 1. No acute cardiopulmonary disease. ACT 112: Negative or not required by law. Electronically signed by: Humza Lobato M.D. 01/07/2022 1:24 PM Discharge Plan Visit Data Chief Complaint: Illness Stated Complaint: N/V/D ED Provider: Skip Damico Discharge Problem: Complicated urinary tract infection, Nausea vomiting and diarrhea, Acute dehy dration, Hypomagnesemia, Hypokalemia Patient Disposition: Admitted As Inpatient Discharge Instructions Interventions: ED Discharge Assessment Last Done: 01/07/22 17:03
[2022-01-07] MEDS ORDERED: DAPTOmycin 500 MG in SYRINGE 0 ML IV ONE (12:56)
[2022-01-07] MEDS ORDERED: CEFEPIME 2,000 MG/20 ML VIAL IV STA (12:56)
[2022-01-07] MEDS ORDERED: SODIUM CHLORIDE 0.9% 1000ML 1,000 ML IV SCH (13:00)
--- NOTE | 2022-01-07 13:26 | XRay Report ---
XR chest 1V portable CLINICAL HISTORY: SEPSIS. COMPARISON STUDY: 11/17/2021 TECHNIQUE: 1 view of the chest FINDINGS: Single frontal view of the chest demonstrates the cardiomediastinal silhouette to be within normal li mits. There is again elevation of hemidiaphragms bilaterally. The lungs are clear of alveolar opaciti es. There is no evidence for pleural effusion. There is no evidence for vascular congestion. There is no acute osseous pathology. IMPRESSION: 1. No acute cardiopulmonary disease. ACT 112: Negative or not required by law. Electronically signed by: Humza Lobato M.D. 01/07/2022 1:24 PM
[2022-01-07 14:10] LABS: Basophils # (auto) 0.03 K/uL (0-0.2); Basophils % (auto) 0.3 %; Eosinophils # (auto) 0.44 K/uL (0-0.5); Eosinophils % (auto) 4.1 %; Hematocrit (blood only) 36.4 % (37-47); Hemoglobin 11.8 g/dL (12.0-16.0); Immature Granulocytes # (auto) 0.09 K/uL (0.00-0.02); Immature Granulocytes % (auto) 0.8 %; Lymphocytes # (auto) 1.45 K/uL (1.2-3.4); Lymphocytes % (auto) 13.5 %; Mean Corpuscular Hemoglobin 29.8 pg (25-34); Mean Corpuscular Hgb Conc 32.4 g/dL (32-36); Mean Corpuscular Volume 91.9 fL (80-100); Mean Platelet Volume 11.1 fL (7.4-10.4); Monocytes # (auto) 1.15 K/uL (0.11-0.59); Monocytes % (auto) 10.7 %; Neutrophils % (auto) 70.6 %; Platelet Count 359 K/uL (130-400); RDW Coefficient of Variation 14.1 % (11.5-14.5); RDW Standard Deviation 47.2 fL (36.4-46.3); Red Blood Count 3.96 M/uL (4.2-5.4); White Blood Count 10.76 K/uL (4.8-10.8)
[2022-01-07 14:15] LABS: Appearance Urine Turbid (Clear); Bacteria Urine Automated Negative (Negative); Blood Urine 2+ (Negative); Color Urine Dark Yellow; Epithelial Cell Urine Auto >30 /lpf (0-5); Glucose Urine UA Negative (Negative); Ketones Urine 1+ (Negative); Leukocyte Esterase Urine 3+ (Negative); Nitrite Urine Negative (Negative); Protein Urine 3+ (Negative); Urobilinogen Urine Negative (Negative); WBC Urine Automated >30 /hpf (0-5)
[2022-01-07 14:22] LABS: Bilirubin Urine 1+ (Negative)
[2022-01-07 14:27] LABS: Partial Thromboplastin Ratio 0.9; Partial Thromboplastin Time 23.4 Seconds (21.0-31.0); Prothrombin Time 10.3 Seconds (9.0-12.0)
[2022-01-07 14:28] LABS: Troponin I < 0.03 ng/ml (0-0.04)
[2022-01-07 14:44] LABS: Alanine Aminotransferase 60 U/L (7-52); Albumin Globulin Ratio 1.1 (0.9-2); Albumin Level 3.7 gm/dl (3.4-5.0); Alkaline Phosphatase 111 U/L (34-104); Anion Gap 12 (3-11); Aspartate Aminotransferase 75 U/L (13-39); BUN Creatinine Ratio 5.2 (10-20); Bilirubin,Total 0.5 mg/dl (0.2-1.0); Blood Urea Nitrogen 8 mg/dl (6-23); Calcium 9.9 mg/dl (8.5-10.1); Carbon Dioxide 24 mmol/L (21-32); Chloride 104 mmol/L (98-107); Est GFR (African American) 40.1 ml/min; Est GFR (Non-African American) 34.6 ml/min; Globulin 3.5 gm/dl (2.5-4.0); Glucose 126 mg/dl (70-99(Fasting)); Magnesium 1.6 mg/dl (1.7-2.4); Potassium 3.3 mmol/L (3.5-5.1); Sodium 140 mmol/L (136-145); Total Protein 7.2 gm/dl (6.0-8.3)
--- NOTE | 2022-01-07 15:28 | History & Physical Report ---
Date of Service January 07, 2022 Assessment & Plan (1) Nausea & vomiting: Plan: Intractable nausea, vomiting Diarrhea Likely due to recent infection from Complicated UTI --CT ABD pending IV fluids Antiemetics Liquid diet, advance as tolerated Stool studies to rule out infection Imodium PRN once infection ruled out Further management based on CT abdomen findings Recurrent UTI H/O nephrolithiasis H/O VRE, Klebsiella UTI Based on Records: 10/11/2021-10/24/2021: Patient admitted for management of 5 mm obstructing calculus just above the left vesicoureteral junction. S/p cystoscopy with left retrograde pyelogram aspiration and stent placement by Dr. Adam on 10/12. Hospital course complicated by acute respiratory acidosis requiring intubation. 10/30/2021-11/09/2021: Patient admitted for COVID-19 pneumonia. Required only a small amount of supplemental oxygen. Completed a course of Decadron. 11/18/2021 -12/06/2021 (transferred to [facility] [place], [place] 12/11/2021): Patient admitted for flank pain, UTI, left renal cyst Urine culture from 11/17 grew Klebsiella, urine culture from 11/26 grew Enterococcus, urine culture from 12/06 grew VRE. --Patient could not complete p.o. antibiotics Vantin, linezolid which was prescribed for 8 more days during prior hospitalization --Start broad-spectrum antibiotics with daptomycin, cefepime for now --Blood, urine cultures obtained --Consider urology evaluation if needed Hypokalemia Hypomagnesemia Secondary to GI losses Replete electrolytes as needed Cough Likely acute bronchitis CXR:No acute cardiopulmonary disease. On Antibiotics as above Transaminitis CT abdomen pending Monitor LFTs COPD Chronic respiratory failure with hypoxia On 2 L supplemental oxygen at baseline No signs of exacerbation on Trelegy DM Type II: Last A1c: 6.1 in October 2021 Hold PO meds ISS, Accu checks, Diabetic diet Dyslipidemia Hold statin while on Dapto CKD IV Creatinine at baseline Monitor renal function Avoid nephrotoxic agents as able H/O colon cancer S/P colectomy DVT Px: Heparin SQ CODE STATUS Full code History of Present Illness Chief Complaint: Intractable nausea, vomiting Primary Care Provider: Lo Chand, Patient is a 66-year-old female with history of COPD on chronic supplemental oxygen 2 L at baseline, obstructive sleep apnea, diabetes mellitus, dyslipidemia, CKD stage IV, bipolar disorder, H/O colon cancer S/P colectomy, Bilateral nephrolithiasis and other medical problems presents with history of intractable nausea, vomiting associated with diarrhea since 1 week duration. Patient states having multiple episodes of nausea, vomiting and diarrhea but denies any blood in vomitus or stool. Patient was unable to eat secondary to nausea and has generalized weakness. She is recently discharged from [facility] after being treated for recurrent UTI, acute kidney injury. Patient has history of VRE, Klebsiella UTI. Patient received IV daptomycin, Rocephin for 7 days and was discharged to complete another 8-day course of linezolid and Vantin. Patient states that she could not take the antibiotics as prescribed secondary to intractable nausea, vomiting. She also states having left flank pain and bladder pain which has been ongoing since last discharge. She describes pain as sharp, 8/10, nonradiating and is associated with dysuria. She denies any hematuria. Also reports having cough with whitish expectoration since past 2 days. Denies any history of chest pain, SOB, dizziness, wheezing, hemoptysis, fever, chills, headache, change in vision, blood in stools. Allergies Allergy/AdvReac Type Severity Reaction Status Date / Time fentanyl Allergy Severe itching/felt Verified 01/07/22 14:55 like throat closing salicylates Allergy Severe SHORTNESS Verified 01/07/22 14:55 OF BREATH Iodinated Contrast Media Allergy Intermediate EYES Verified 01/07/22 14:55 SWELLING/Hives amoxicillin [From Augmentin] Allergy Mild Rash Verified 01/07/22 14:55 aspirin Allergy Mild FACIAL Verified 01/07/22 14:55 SWELLING clavulanic acid Allergy Mild Rash Verified 01/07/22 14:55 [From Augmentin] hydromorphone Allergy Mild RASH/ITCHIN Verified 01/07/22 14:55 G meperidine AdvReac Intermediate ITCH Verified 01/07/22 14:55 morphine AdvReac Intermediate ITCH Verified 01/07/22 14:55 tramadol AdvReac Mild itch Verified 01/07/22 14:55 Home Medications Medication Instructions Recorded Confirmed Type atorvastatin 40 mg tablet (Lipitor) 40 mg PO QPM 07/12/18 01/07/22 History clopidogrel 75 mg tablet (Plavix) 75 mg PO QPM 07/12/18 01/07/22 History pantoprazole 40 mg tablet,delayed 40 mg PO BID 07/12/18 01/07/22 History release (Protonix) riboflavin (vitamin B2) 400 mg 400 mg PO QPM 07/12/18 01/07/22 History tablet cholecalciferol (vitamin D3) 50 2,000 unit PO QAM 05/16/19 01/07/22 History mcg (2,000 unit) capsule (Vitamin D3) albuterol sulfate 90 mcg/actuation 2 puff INHALATION Q4H PRN 07/21/19 01/07/22 History aerosol inhaler magnesium oxide 400 mg PO HS 10/05/19 01/07/22 History fluticasone fur. 100 mcg-umeclid 1 inh INHALATION DAILY PRN 12/11/20 01/07/22 History 62.5 mcg-vilant 25 mcg inhalat.powder (Trelegy Ellipta) metoprolol succinate 25 mg 25 mg PO PM tab 12/11/20 01/07/22 History tablet,extended release 24 hr metoprolol succinate 50 mg 50 mg PO QAM 12/11/20 01/07/22 History tablet,extended release 24 hr glipizide 2.5 mg tablet, extended 2.5 mg PO PM 04/29/21 01/07/22 History release 24 hr (Glucotrol XL) ondansetron 4 mg disintegrating 4 mg PO Q8H PRN #10 tab 06/02/21 01/07/22 Rx tablet acetaminophen 500 mg tablet 1,000 mg PO AMHS 10/11/21 01/07/22 History (Tylenol Extra Strength) phenazopyridine 100 mg tablet 100 mg PO TID PRN #30 tab 11/09/21 01/07/22 Rx (Pyridium) oxcarbazepine 300 mg tablet 300 mg PO BID 12/22/21 01/07/22 History tamsulosin 0.4 mg capsule 0.4 mg PO DAILY 12/22/21 01/07/22 History cefpodoxime 200 mg tablet 200 mg PO BID #16 tab 01/01/22 01/07/22 Rx lidocaine 5 % topical patch 1 patch TRANSDERMAL QAM 14 Days 01/01/22 01/07/22 Rx #14 ea linezolid 600 mg tablet 600 mg PO BID #16 tab 01/01/22 01/07/22 Rx loperamide 2 mg capsule 2 mg PO TID PRN #30 cap 01/01/22 01/07/22 Rx oxybutynin chloride 5 mg tablet 5 mg PO QAM 30 Days #30 tab 01/01/22 01/07/22 Rx Past Med/Surg History Medical History Anxiety Asthma well controlled per pt, rare inh use Bipolar disorder Chronic back pain Chronic headaches Chronic renal insufficiency stage 3, following with [facility] ([place]) Chronic respiratory failure with hypoxia CKD (chronic kidney disease), stage III COPD (chronic obstructive pulmonary disease) Deep vein thrombosis LLE - COULD NOT RECALL DATE - REPORTS SHE WAS TREATED AT [facility] W/ BLOOD THINNERS Depression DM type 2 (diabetes mellitus, type 2) GERD (gastroesophageal reflux disease) History of colon cancer 2012 S/P BOWEL RESECTION. History of COVID-27 Sep 2020 HTN (hypertension) Hyperlipidemia Kidney stone Myocardial Infarction 06/2016--> [facility] -- CARDIAC CATH --> normal coronary anatomy without coronary obstruction but Plavix started per [facility] discharge summary On anticoagulant therapy plavix daily CALI (obstructive sleep apnea) Poor historian Renal colic s/p L ureteral stent 10/2021 followed by lithotripsy, stone extraction and stent exchange 11/2021 Renal cyst 7 cm thick walled as of early 2021 Takotsubo cardiomyopathy History of in 2015 with return to normal LV function Surgical History H/O hand surgery RIGHT History of appendectomy History of bilateral cataract extraction History of blepharoplasty History of cardiac cath 03/2018 - [place] - DENIES STENTS/ANGIOPLASTY - [facility] - FOLLOWS W/ DR. TORRES History of closure of ileostomy History of colectomy due to colon cancer History of colonoscopy History of cystoscopy History of esophageal dilatation History of esophagogastroduodenoscopy (EGD) History of hysterectomy History of kidney surgery at age 9 yrs "something was wrong and had to fix it" History of lithotripsy History of tooth extraction History of total abdominal hysterectomy and bilateral salpingo-oophorectomy Hx of cholecystectomy Family History Other Breast cancer Social History Smoking Status: Never smoker Second Hand Exposure: No; Hx Alcohol Use: No Hx Substance Use: No Preferred Language: Maltese Communication Ability: Effective Visual Impairment: No Limitations Hearing Ability: Normal Sports Book Writer Required: No Beliefs That Will Affect Care: None marital status: Current Living Situation: Alone Current Living Situation Comment: [facility] Feels Safe at Home: Yes Safety Concerns: Feels Safe At This Time Assistive Devices: None Review of Systems Review of Systems: All systems reviewed & are unremarkable except as noted in Subjective Physical Exam Physical Exam: Physical Exam: Vitals signs as noted above General Appearance:Obese, no apparent distress Head: normocephalic, Atraumatic Eyes: normal inspection, EOMI Neck: supple, Trachea midline Respiratory/Chest: Normal breath sounds, CTA, No accessory muscle use Cardiovascular: S1, S2, No murmur, +Tachycardia Abdomen/GI:Soft, Left flank tender, Mild generalized abd tender, no guarding or rigidity, bowel sounds present Extremities/Musculoskeletal:normal inspection, no edema Neurologic/Psych:AAOX3, grossly no focal neurological deficits Skin: normal color, warm Results & Data Results & Data ([facility]) Vital Signs (Past 12 Hours) Vital Signs Temp Pulse Pulse Resp BP BP Pulse Ox 01/07/22 14:00 18 97 01/07/22 13:59 18 95 01/07/22 13:04 115 H 115 H 18 153/107 H 95 01/07/22 12:49 36.8 C 112 H 18 153/107 H 98 Laboratory Results Short CBC 01/07/22 Range/Units 13:46 WBC 10.76 (4.8-10.8) K/uL Hgb 11.8 L (12.0-16.0) g/dL Hct 36.4 L (37-47) % Plt Count 359 (130-400) K/uL BMP 01/07/22 13:46 Sodium 140 Potassium 3.3 L Chloride 104 Carbon Dioxide 24 BUN 8 Creatinine 1.53 H Glucose 126 H Calcium 9.9 Cardiac Enzymes 01/07/22 Range/Units 13:46 Troponin I < 0.03 (0-0.04) ng/ml Liver Function 01/07/22 Range/Units 13:46 Total Bilirubin 0.5 (0.2-1.0) mg/dl AST 75 H (13-39) U/L ALT 60 H (7-52) U/L Alkaline Phosphatase 111 H (34-104) U/L Albumin 3.7 (3.4-5.0) gm/dl Urine 01/07/22 Range/Units 13:16 Urine Color Dark Yellow Urine Appearance Turbid A (Clear) Urine pH 6.0 (4.5-7.5) Ur Specific Lynx 1.020 (1.000-1.030) Urine Protein 3+ H (Negative) Urine Glucose (UA) Negative (Negative) Diagnostic Findings CT ABD Pending ECG Additional Comments: EKG: Sinus tachycardia, nonspecific ST-T wave changes, moderate LVH, QTC 405.
[2022-01-07] MEDS ORDERED: SODIUM CHLORIDE 0.9% 1000ML 500 ML IV ONE (16:06)
[2022-01-07] MEDS ORDERED: MoRPHine SULFATE 2 MG/ML CARP IV STA (16:06)
[2022-01-07] MEDS: POTASSIUM CHLORIDE 10 MEQ TABCR PO ONE ×2 (16:43→17:26)
[2022-01-07] MEDS ORDERED: GLUCOSE 40% GEL 15 GM TUBE PO PRN (17:19)
[2022-01-07] MEDS ORDERED: ACETAMINOPHEN 325 MG TAB PO PRN (17:19)
[2022-01-07] MEDS ORDERED: ALBUTEROL HFA 8 GM INHALER INH PRN (17:19)
[2022-01-07] MEDS ORDERED: NON-FORMULARY MEDICATION (Fluticasone-Umeclidin-Vilanter [Trelegy Ellipta] 100-62.5-25 mcg INH PRN (17:19)
[2022-01-07] MEDS ORDERED: GLUCAGON FOR INJ 1 MG VIAL SQ PRN (17:19)
[2022-01-07] MEDS ORDERED: DEXTROSE 50% 50 ML SYRINGE IV PRN (17:19)
[2022-01-07] MEDS ORDERED: CONSULT PHARMACY STA (17:19)
[2022-01-07] MEDS ORDERED: GLUCOSE 10 TABS/TUBE PO PRN (17:19)
[2022-01-07] MEDS ORDERED: PHENAZOPYRIDINE HCL 100 MG TAB PO PRN (17:19)
[2022-01-07] MEDS ORDERED: CARBOHYDRATES FOR HYPOGLYCEMIA PO PRN (17:19)
[2022-01-07] MEDS ORDERED: NSS + 20MEQ KCL 20 MEQ/1,000 ML BAG IV ONE (17:45)
[2022-01-07] MEDS ORDERED: MAGNESIUM SULFATE / D5W 1 GM/100 ML BAG IV ONE (18:00)
[2022-01-07] MEDS: PATIENT'S HEIGHT AND/OR WEIGHT NEEDED SCH ×2 (18:15→19:47)
[2022-01-07] MEDS: INSULIN ASPART PER UNIT SC SCH ×2 (18:26→21:13)
[2022-01-07] MEDS: LIDOCAINE 5% 1 PATCH TD SCH (18:48)
--- NOTE | 2022-01-07 20:08 | CT Scan Report ---
ABDOMEN AND PELVIS CT WITHOUT CONTRAST CT DOSE: 916.48 mGycm HISTORY: Acute generalized abdominal pain with a left ureteral stent in place. ab pain; h/o ureteral stent TECHNIQUE: Multiaxial CT images of the abdomen and pelvis were performed without contrast. A dose lo wering technique was utilized adhering to the principles of ALARA. COMPARISON STUDY: CT abdomen and pelvis 12/27/2021 FINDINGS: The imaged inferior cardiac chambers are unremarkable. Calcified granulomata of the left lung base. T here are 2 solid nodules of the right lower lobe which are partially imaged measuring up to 5 mm. The re is no pneumatosis or pneumoperitoneum. The unenhanced spleen, mildly atrophic pancreas and adrenal glands are unremarkable. Cholecystectomy. Unremarkable liver. Parenchymal scarring with areas of cortical thinning redemonstrated within the left kidney. There are least 4 nonobstructing calculi within the left kidney measuring up to 10 mm. A 4 mm nonobstructing c alcification is again noted within the right kidney. A 7.2 cm thick-walled cyst is unchanged in the s uperior pole left kidney. Subcentimeter hypodensity of the right kidney suggestive of a probable caroline tional cyst. Mild perinephric stranding bilaterally has decreased from prior. No ureteral calculi narda ntified. Unchanged left-sided pelvocaliectasis with stable positioning of the left ureteral stent. De compressed urinary bladder with wall thickening and perivesicular stranding. A Purvis catheter is pres ent. Hysterectomy. No abdominal aortic aneurysm or adenopathy. There is no bowel obstruction or bowel wall thickening. M oderate sized hiatal hernia. Postoperative changes of subtotal colectomy. Atrophy of the rectus muscu lature. No acute fracture. Degenerative changes of the spine, pelvis and hips. IMPRESSION: 1. Stable positioning of the left ureteral stent with unchanged mild left-sided pelvocaliectasis. 2. There is decreased bilateral perinephric stranding compared to the prior study. 3. Nonobstructing bilateral nephrolithiasis. 4. No bowel obstruction or bowel wall thickening. 5. Subtotal colectomy. 6. Moderate sized hiatal hernia. 7. Additional findings as above. ACT 112: Negative or not required by law. The above report was generated using voice recognition software. It may contain grammatical, syntax o r spelling errors. Electronically signed by: Lang Calderon M.D. 01/07/2022 8:05 PM
[2022-01-07] MEDS ORDERED: ATORVASTATIN 40 MG TAB PO SCH (21:00)
[2022-01-07] MEDS ORDERED: NON-FORMULARY MEDICATION (Riboflavin (Vitamin B2) 400 mg Tablet) PO SCH (21:00)
[2022-01-07] MEDS: CLOPIDOGREL BISULFATE 75 MG TAB PO SCH (21:15)
[2022-01-07] MEDS: METOPROLOL SUCC 25MG EXT REL TAB PO SCH (21:16)
[2022-01-07] MEDS: MAGNESIUM OXIDE 400 MG TAB PO SCH (21:16)
[2022-01-07] MEDS: OXcarbazepine 150 MG TABLET PO SCH (21:16)
[2022-01-07] MEDS: PANTOprazole 40 MG TAB PO SCH (21:17)
[2022-01-07] MEDS ORDERED: PROMETHAZINE HCL 12.5 MG in SODIUM CHLORIDE 0.9% 50 ML IV STA (21:18)
[2022-01-07] MEDS: HEPARIN SOD 5,000 UNIT/0.5 ML VIAL SQ SCH (22:09)
--- NOTE | 2022-01-08 06:06 | Electrocardiogram Report ---
Test Reason : Blood Pressure : / mmHG Vent. Rate : 111 BPM Atrial Rate : 111 BPM P-R Int : 156 ms QRS Dur : 058 ms QT Int : 298 ms P-R-T Axes : 014 -22 050 degrees QTc Int : 405 ms Poor data quality, interpretation may be adversely affected Sinus tachycardia Moderate voltage criteria for LVH, may be normal variant Inferior infarct (cited on or before 22-DEC-2021) Anterolateral infarct (cited on or before 22-DEC-2021) Abnormal ECG When compared with ECG of 22-DEC-2021 13:20, Criteria for Anterolateral infarct is now Present Confirmed by Kalia Puente ([id number]) on 01/08/2022 6:06:15 AM Referred By: Confirmed By:Kalia Puente
[2022-01-08 06:21] LABS: Basophils # (auto) 0.03 K/uL (0-0.2); Basophils % (auto) 0.4 %; Eosinophils # (auto) 0.47 K/uL (0-0.5); Eosinophils % (auto) 6.5 %; Hematocrit (blood only) 32.3 % (37-47); Hemoglobin 10.4 g/dL (12.0-16.0); Immature Granulocytes # (auto) 0.05 K/uL (0.00-0.02); Immature Granulocytes % (auto) 0.7 %; Lymphocytes # (auto) 1.41 K/uL (1.2-3.4); Lymphocytes % (auto) 19.5 %; Mean Corpuscular Hemoglobin 30.4 pg (25-34); Mean Corpuscular Hgb Conc 32.2 g/dL (32-36); Mean Corpuscular Volume 94.4 fL (80-100); Mean Platelet Volume 11.2 fL (7.4-10.4); Monocytes # (auto) 0.86 K/uL (0.11-0.59); Monocytes % (auto) 11.9 %; Neutrophils # (auto) 4.41 K/uL (1.4-6.5); Platelet Count 251 K/uL (130-400); RDW Coefficient of Variation 14.3 % (11.5-14.5); RDW Standard Deviation 49.1 fL (36.4-46.3); Red Blood Count 3.42 M/uL (4.2-5.4); White Blood Count 7.23 K/uL (4.8-10.8)
[2022-01-08 06:38] LABS: Albumin Globulin Ratio 1.1 (0.9-2); Bilirubin,Total 0.5 mg/dl (0.2-1.0); Calcium 8.5 mg/dl (8.5-10.1); Creatinine Clr Calc Pharmacy 35.7 ml/min; Est GFR (African American) 47.5 ml/min; Globulin 2.7 gm/dl (2.5-4.0); Potassium 3.4 mmol/L (3.5-5.1); Total Protein 5.7 gm/dl (6.0-8.3)
[2022-01-08] MEDS: INSULIN ASPART PER UNIT SC SCH ×4 (08:21→20:18)
[2022-01-08] MEDS: FLUTICASONE FUROATE 100MCG 14 PUFFS/INHALER INH SCH (08:23)
[2022-01-08] MEDS: METOPROLOL SUCC 50MG EXT REL TAB PO SCH (08:23)
[2022-01-08] MEDS: PANTOprazole 40 MG TAB PO SCH ×2 (08:24→20:20)
[2022-01-08] MEDS: UMECLIDINIUM/VILANTEROL 62.5/25MCG 7 PUFFS/INHALER INH SCH (08:24)
[2022-01-08] MEDS: TAMSULOSIN HCL 0.4 MG CAP PO SCH (08:24)
[2022-01-08] MEDS: OXcarbazepine 150 MG TABLET PO SCH ×2 (08:24→20:20)
[2022-01-08] MEDS ORDERED: NON-FORMULARY MEDICATION (Fluticasone-Umeclidin-Vilanter [Trelegy Ellipta] 1 PUFFS) INH SCH (09:00)
[2022-01-08] MEDS: HEPARIN SOD 5,000 UNIT/0.5 ML VIAL SQ SCH ×2 (09:29→20:49)
[2022-01-08] MEDS: LIDOCAINE 5% 1 PATCH TD SCH (09:30)
[2022-01-08] MEDS: PROMETHAZINE HCL 12.5 MG in SODIUM CHLORIDE 0.9% 50 ML IV PRN (09:31)
[2022-01-08] MEDS: NSS + 20MEQ KCL 20 MEQ/1,000 ML BAG IV SCH ×3 (10:08→20:52)
[2022-01-08] MEDS: POTASSIUM CHLORIDE / WTR 10 MEQ/100 ML PLCT IV SCH ×3 (10:08→11:21)
[2022-01-08 10:56] LABS: Adenovirus F 40/41 PCR Not Detected (NotDetected); Astrovirus PCR Not Detected (NotDetected); Campylobacter PCR Not Detected (NotDetected); Clostridium diff Toxin A/B PCR Not Detected (NotDetected); Cryptosporidium PCR Not Detected (NotDetected); Cyclospora cayetanensis PCR Not Detected (NotDetected); Entamoeba histolytica PCR Not Detected (NotDetected); Enteroaggregative E.coli(EAEC) Not Detected (NotDetected); Enteropathogenic E.coli (EPEC) Not Detected (NotDetected); Enterotoxigenic E.coli (ETEC) Not Detected (NotDetected); Giardia lamblia PCR Not Detected (NotDetected); Norovirus GI/GII PCR Not Detected (NotDetected); Plesiomonas shigelloides PCR Not Detected (NotDetected); Rotavirus A PCR Not Detected (NotDetected); Salmonella PCR Not Detected (NotDetected); Sapovirus PCR Not Detected (NotDetected); Shiga-like Toxin E.coli (STEC) Not Detected (NotDetected); Shigella/Enteroinvasive E.coli Not Detected (NotDetected); Vibrio cholerae PCR Not Detected (NotDetected); Vibrio species PCR Not Detected (NotDetected); Yersinia enterocolitica PCR Not Detected (NotDetected)
--- NOTE | 2022-01-08 11:26 | Gastrointestinal Consultation ---
Date of Consultation January 08, 2022 Assessment & Plan (1) Nausea vomiting and diarrhea: 66 year old female with history of T2DM, dyslipidemia, COPD, CALI, COVID-19 infection in 2021, HTN, CKD, PORTER, colon CA 2010 s/p proctectomy, ileostomy, ileoproctostomy in 2010 last egd 2019 colon in 2021 w/ nausea/vomiting. CTAP without acute findings, AST elevation this AM. She denies NSAIDs, ETOH and drug use, has been off and on ABX for urinary infections Would screen for c.diff if diarrhea worsens Her nausea/vomiting could be secondary to prolonged ABX use Recommend ETOH and drug screening Scheduled antiemetics as doing, zofran/phenergan Can convert to PO pantoprazole Can add pepcid 20 mg PRN Will arrange OP EGD/EUS Thank you for allowing us to participate in the care of this patient. Please call with any acute changes, questions or concerns. Please see addendum below with additional recommendation from my supervising physician. Supervising Physician Co-Signing Physician Notes I saw and evaluated the patient. We were consulted for evaluation of nausea and slight elevation of the patient's liver enzymes which are now improving. She has a long history of medical problems and is presently on antibiotic coverage for a complicated urinary tract infection. Physical examination No obvious distress Delay in expiratory phase noted No abdominal tenderness noted Impression: Patient with a history of nausea likely related to medications. She does have a slight elevation of her liver enzymes and negative imaging. I would recommend further evaluation with upper endoscopy and endoscopic ultrasound in the near future to better assess this. Recommendations Outpatient endoscopic ultrasound and upper endoscopy to be scheduled Call with any questions or concerns History of Present Illness Reason for Consultation: nausea/vomiting Requesting Physician: Bashir Attending Physician: Luis A Camejo MD History of Present Illness 66 year old female with history of T2DM, dyslipidemia, COPD, CALI, COVID-19 infection in 2021, HTN, CKD, PORTER, colon CA 2010 s/p proctectomy, ileostomy, ileoproctostomy in 2010 last egd/colon in 2019 admitted w/ recurrent UTI, PERRI on CKD admitted w/ nausea/vomiting. GI asked to evaluate. Notes chronic symptoms. Notes that she continues to suffer from recurrent UTI, nephrolithiasis. On and off antibiotic therapy for infections. Denies abd pain. Notes nausea/vomiting, random throughout the day. No associated with PO intake. Some GERD symptoms. Chronic loose stools. No black or bloody stools. Denies ETOH Denies NSAIDs Denies marijuana or other street drugs CTAP 2021:A left ureteral stent is unchanged in position. No calculi are identified in the left ureter along the course of the stent. Fullness of the left renal pelvis is unchanged.There is pericystic inflammation, as well as infiltration around the left kidney and ureter. Although this could be related to the presence of an indwelling stent, superimposed urinary tract infection is not excluded. Correlate with clinical findings and urinalysis. The degree of inflammation around the left renal pelvis appears modestly improved as compared to 12/05/2021. There is a 7.2 cm cyst identified in the upper pole of left kidney which has been present dating back to 2010. The cyst remains thick walled, and superimposed infection is not excluded.Bilateral nephrolithiasis as abov e.Moderate hiatal hernia. Subtotal colectomy. Sigmoidoscopy 2021: Patent end-to-end ileo-rectal anastomosis, characterized by healthy appearing mucosa. - The rectum is normal. Biopsied. EGD 2019:Gastroesophageal flap valve classified as Hill Grade IV (no fold, wide open lumen, hiatal hernia present). - Normal stomach. - Normal examined duodenum. - Dilation performed at the gastroesophageal junction. - No specimens collected. Colonoscopy 2019: The perianal and digital rectal examinations were normal. There was an ileocolonic anastamosis at 20 cm. The entire examined colon remnant was normal. The examined portion of the ileum was normal Allergies Allergy/AdvReac Type Severity Reaction Status Date / Time fentanyl Allergy Severe itching/felt Verified 01/07/22 14:55 like throat closing salicylates Allergy Severe SHORTNESS Verified 01/07/22 14:55 OF BREATH Iodinated Contrast Media Allergy Intermediate EYES Verified 01/07/22 14:55 SWELLING/Hives amoxicillin [From Augmentin] Allergy Mild Rash Verified 01/07/22 14:55 aspirin Allergy Mild FACIAL Verified 01/07/22 14:55 SWELLING clavulanic acid Allergy Mild Rash Verified 01/07/22 14:55 [From Augmentin] hydromorphone Allergy Mild RASH/ITCHIN Verified 01/07/22 14:55 G meperidine AdvReac Intermediate ITCH Verified 01/07/22 14:55 morphine AdvReac Intermediate ITCH Verified 01/07/22 14:55 tramadol AdvReac Mild itch Verified 01/07/22 14:55 Home Medications Medication Instructions Recorded Confirmed Type atorvastatin 40 mg tablet (Lipitor) 40 mg PO QPM 07/12/18 01/07/22 History clopidogrel 75 mg tablet (Plavix) 75 mg PO QPM 07/12/18 01/07/22 History pantoprazole 40 mg tablet,delayed 40 mg PO BID 07/12/18 01/07/22 History release (Protonix) riboflavin (vitamin B2) 400 mg 400 mg PO QPM 07/12/18 01/07/22 History tablet cholecalciferol (vitamin D3) 50 2,000 unit PO QAM 05/16/19 01/07/22 History mcg (2,000 unit) capsule (Vitamin D3) albuterol sulfate 90 mcg/actuation 2 puff INHALATION Q4H PRN 07/21/19 01/07/22 History aerosol inhaler magnesium oxide 400 mg PO HS 10/05/19 01/07/22 History fluticasone fur. 100 mcg-umeclid 1 inh INHALATION DAILY PRN 12/11/20 01/07/22 History 62.5 mcg-vilant 25 mcg inhalat.powder (Trelegy Ellipta) metoprolol succinate 25 mg 25 mg PO PM tab 12/11/20 01/07/22 History tablet,extended release 24 hr metoprolol succinate 50 mg 50 mg PO QAM 12/11/20 01/07/22 History tablet,extended release 24 hr glipizide 2.5 mg tablet, extended 2.5 mg PO PM 04/29/21 01/07/22 History release 24 hr (Glucotrol XL) ondansetron 4 mg disintegrating 4 mg PO Q8H PRN #10 tab 06/02/21 01/07/22 Rx tablet acetaminophen 500 mg tablet 1,000 mg PO AMHS 10/11/21 01/07/22 History (Tylenol Extra Strength) phenazopyridine 100 mg tablet 100 mg PO TID PRN #30 tab 11/09/21 01/07/22 Rx (Pyridium) oxcarbazepine 300 mg tablet 300 mg PO BID 12/22/21 01/07/22 History tamsulosin 0.4 mg capsule 0.4 mg PO DAILY 12/22/21 01/07/22 History cefpodoxime 200 mg tablet 200 mg PO BID #16 tab 01/01/22 01/07/22 Rx lidocaine 5 % topical patch 1 patch TRANSDERMAL QAM 14 Days 01/01/22 01/07/22 Rx #14 ea linezolid 600 mg tablet 600 mg PO BID #16 tab 01/01/22 01/07/22 Rx loperamide 2 mg capsule 2 mg PO TID PRN #30 cap 01/01/22 01/07/22 Rx oxybutynin chloride 5 mg tablet 5 mg PO QAM 30 Days #30 tab 01/01/22 01/07/22 Rx Patient History Medical History Anxiety Asthma well controlled per pt, rare inh use Bipolar disorder Chronic back pain Chronic headaches Chronic renal insufficiency stage 3, following with [facility] nephrology ([place]) Chronic respiratory failure with hypoxia CKD (chronic kidney disease), stage III COPD (chronic obstructive pulmonary disease) Deep vein thrombosis LLE - COULD NOT RECALL DATE - REPORTS SHE WAS TREATED AT [facility] W/ BLOOD THINNERS Depression DM type 2 (diabetes mellitus, type 2) GERD (gastroesophageal reflux disease) History of colon cancer 2012 S/P BOWEL RESECTION. History of COVID-27 Sep 2020 HTN (hypertension) Hyperlipidemia Kidney stone Myocardial Infarction 06/2016--> [facility] -- CARDIAC CATH --> normal coronary anatomy without coronary obstruction but Plavix started per [facility] discharge summary On anticoagulant therapy plavix daily CALI (obstructive sleep apnea) Poor historian Renal colic s/p L ureteral stent 10/2021 followed by lithotripsy, stone extraction and stent exchange 11/2021 Renal cyst 7 cm thick walled as of early 2021 Takotsubo cardiomyopathy History of in 2015 with return to normal LV function Surgical History H/O hand surgery RIGHT History of appendectomy History of bilateral cataract extraction History of blepharoplasty History of cardiac cath 03/2018 - [place] - DENIES STENTS/ANGIOPLASTY - [facility] - FOLLOWS W/ DR. TORRES History of closure of ileostomy History of colectomy due to colon cancer History of colonoscopy History of cystoscopy History of esophageal dilatation History of esophagogastroduodenoscopy (EGD) History of hysterectomy History of kidney surgery at age 9 yrs "something was wrong and had to fix it" History of lithotripsy History of tooth extraction History of total abdominal hysterectomy and bilateral salpingo-oophorectomy Hx of cholecystectomy Family History Other Breast cancer Social History Smoking Status: Never smoker Second Hand Exposure: No; Hx Alcohol Use: No Hx Substance Use: No Preferred Language: [place] Leonean Communication Ability: Effective Visual Impairment: No Limitations Hearing Ability: Normal Tax Clerk Required: No Beliefs That Will Affect Care: None marital status: Current Living Situation: Alone Current Living Situation Comment: [facility] Feels Safe at Home: Yes Safety Concerns: Feels Safe At This Time Assistive Devices: Cane, Oxygen - Continuous, Walker and Wheelchair Review of Systems Review of Systems: All systems reviewed & are unremarkable except as noted in HPI & below Physical Exam Constitutional: WD/WN, vitals as above Neck: trachea midline; no tracheal deviation Respiratory: normal respiratory effort; no respiratory distress, no labored breathing and no cough Cardiovascular: Rate/Rhythm: regular rate Gastrointestinal (Abdomen): Inspection/Auscultation: normal bowel sounds; abdomen not distended Skin: no rashes, warm and dry Results & Data ([facility]) Vital Signs (Past 12 Hours) Vital Signs Temp Pulse Pulse Resp BP Pulse Ox 01/08/22 10:54 36.6 C 97 H 18 125/79 96 01/08/22 10:00 16 98 01/08/22 09:20 93 H 01/08/22 06:40 36.7 C 93 H 19 104/70 95 01/08/22 06:19 18 94 01/08/22 03:15 36.7 C 86 19 124/74 94 01/08/22 01:29 18 95 01/07/22 23:59 92 H Laboratory Results 01/08/22 01/08/22 01/08/22 Range/Units 09:15 07:06 05:21 WBC (4.8-10.8) K/uL RBC (4.2-5.4) M/uL Hgb (12.0-16.0) g/dL Hct (37-47) % MCV (80-100) fL MCH (25-34) pg MCHC (32-36) g/dL RDW Std Deviation (36.4-46.3) fL RDW Coeff of Teresa (11.5-14.5) % Plt Count (130-400) K/uL MPV (7.4-10.4) fL Immature Gran % (Auto) % Neut % (Auto) % Lymph % (Auto) % [place] % (Auto) % Eos % (Auto) % Baso % (Auto) % Neut # (Auto) (1.4-6.5) K/uL Lymph # (Auto) (1.2-3.4) K/uL [place] # (Auto) (0.11-0.59) K/uL Eos # (Auto) (0-0.5) K/uL Baso # (Auto) (0-0.2) K/uL Immature Gran # (Auto) (0.00-0.02) K/uL PT (9.0-12.0) Seconds INR (0.9-1.1) APTT (21.0-31.0) Seconds PTT Ratio Sodium 142 (136-145) mmol/L Potassium 3.4 L (3.5-5.1) mmol/L Chloride 113 H (98-107) mmol/L Carbon Dioxide 20 L (21-32) mmol/L Anion Gap 9 (3-11) BUN 8 (6-23) mg/dl Creatinine 1.33 H (0.6-1.2) mg/dl Est Cr Clr Drug Dosing 35.7 Est GFR ( Amer) 47.5 ml/min Est GFR (Non-Af Amer) 41.0 ml/min BUN/Creatinine Ratio 6.0 L (10-20) Glucose 90 (70-99(Fasting)) mg/dl POC Glucose 106 H (70-99) mg/dl Lactate (0.4-2.0) mmol/L Calcium 8.5 (8.5-10.1) mg/dl Magnesium 2.0 (1.7-2.4) mg/dl Total Bilirubin 0.5 (0.2-1.0) mg/dl AST 54 H (13-39) U/L ALT 46 (7-52) U/L Alkaline Phosphatase 86 (34-104) U/L Troponin I (0-0.04) ng/ml Total Protein 5.7 L D (6.0-8.3) gm/dl Albumin 3.0 L (3.4-5.0) gm/dl Globulin 2.7 (2.5-4.0) gm/dl Albumin/Globulin Ratio 1.1 (0.9-2) Procalcitonin (0-0.5) ng/ml Urine Color Urine Appearance (Clear) Urine pH (4.5-7.5) Ur Specific Mars (1.000-1.030) Urine Protein (Negative) Urine Glucose (UA) (Negative) Urine Ketones (Negative) Urine Blood (Negative) Urine Nitrite (Negative) Urine Bilirubin (Negative) Urine Urobilinogen (Negative) Ur Leukocyte Esterase (Negative) Urine WBC (Auto) (0-5) /hpf Urine RBC (Auto) (0-4) /hpf U Hyaline Cast (Auto) (0-5) /lpf U Epithel Cells (Auto) (0-5) /lpf Urine Bacteria (Auto) (Negative) Urine Yeast Stl C. cayetanensis PCR Not Detected (NotDetected) Stool Rotavirus A PCR Not Detected (NotDetected) Stl Adenov F 40/41 PCR Not Detected (NotDetected) Stool Astrovirus (PCR) Not Detected (NotDetected) Stool Campylobacter PCR Not Detected (NotDetected) Stl C. diff Tox A/B PCR Not Detected (NotDetected) Stool Cryptosporidium PCR Not Detected (NotDetected) Stl E.coli Shiga Tox PCR Not Detected (NotDetected) Stl Enterotoxigenic E PCR Not Detected (NotDetected) Stool EPEC (PCR) Not Detected (NotDetected) Stool EAEC (PCR) Not Detected (NotDetected) Stl E. histolytica PCR Not Detected (NotDetected) Stool Giardia Lamblia PCR Not Detected (NotDetected) Stool Salmonella PCR Not Detected (NotDetected) Stool Sapovirus (PCR) Not Detected (NotDetected) Stl P. shigelloides PCR Not Detected (NotDetected) Stl Shigella/EIEC PCR Not Detected (NotDetected) St Y.enterocolitica PCR Not Detected (NotDetected) Stool Vibrio (PCR) Not Detected (NotDetected) Stl Vibrio cholerae PCR Not Detected (NotDetected) Stl Norovirus GI/GII PCR Not Detected (NotDetected) SARS-CoV-2, RNA, NAAT (NEGATIVE) 01/08/22 01/07/22 01/07/22 Range/Units 05:21 20:10 18:25 WBC 7.23 (4.8-10.8) K/uL RBC 3.42 L (4.2-5.4) M/uL Hgb 10.4 L (12.0-16.0) g/dL Hct 32.3 L (37-47) % MCV 94.4 (80-100) fL MCH 30.4 (25-34) pg MCHC 32.2 (32-36) g/dL RDW Std Deviation 49.1 H (36.4-46.3) fL RDW Coeff of Teresa 14.3 (11.5-14.5) % Plt Count 251 (130-400) K/uL MPV 11.2 H (7.4-10.4) fL Immature Gran % (Auto) 0.7 % Neut % (Auto) 61.0 % Lymph % (Auto) 19.5 % [place] % (Auto) 11.9 % Eos % (Auto) 6.5 % Baso % (Auto) 0.4 % Neut # (Auto) 4.41 (1.4-6.5) K/uL Lymph # (Auto) 1.41 (1.2-3.4) K/uL [place] # (Auto) 0.86 H (0.11-0.59) K/uL Eos # (Auto) 0.47 (0-0.5) K/uL Baso # (Auto) 0.03 (0-0.2) K/uL Immature Gran # (Auto) 0.05 H (0.00-0.02) K/uL PT (9.0-12.0) Seconds INR (0.9-1.1) APTT (21.0-31.0) Seconds PTT Ratio Sodium (136-145) mmol/L Potassium (3.5-5.1) mmol/L Chloride (98-107) mmol/L Carbon Dioxide (21-32) mmol/L Anion Gap (3-11) BUN (6-23) mg/dl Creatinine (0.6-1.2) mg/dl Est Cr Clr Drug Dosing Est GFR ( Amer) ml/min Est GFR (Non-Af Amer) ml/min BUN/Creatinine Ratio (10-20) Glucose (70-99(Fasting)) mg/dl POC Glucose 109 H 108 H (70-99) mg/dl Lactate (0.4-2.0) mmol/L Calcium (8.5-10.1) mg/dl Magnesium (1.7-2.4) mg/dl Total Bilirubin (0.2-1.0) mg/dl AST (13-39) U/L ALT (7-52) U/L Alkaline Phosphatase (34-104) U/L Troponin I (0-0.04) ng/ml Total Protein (6.0-8.3) gm/dl Albumin (3.4-5.0) gm/dl Globulin (2.5-4.0) gm/dl Albumin/Globulin Ratio (0.9-2) Procalcitonin (0-0.5) ng/ml Urine Color Urine Appearance (Clear) Urine pH (4.5-7.5) Ur Specific Mars (1.000-1.030) Urine Protein (Negative) Urine Glucose (UA) (Negative) Urine Ketones (Negative) Urine Blood (Negative) Urine Nitrite (Negative) Urine Bilirubin (Negative) Urine Urobilinogen (Negative) Ur Leukocyte Esterase (Negative) Urine WBC (Auto) (0-5) /hpf Urine RBC (Auto) (0-4) /hpf U Hyaline Cast (Auto) (0-5) /lpf U Epithel Cells (Auto) (0-5) /lpf Urine Bacteria (Auto) (Negative) Urine Yeast Stl C. cayetanensis PCR (NotDetected) Stool Rotavirus A PCR (NotDetected) Stl Adenov F 40/41 PCR (NotDetected) Stool Astrovirus (PCR) (NotDetected) Stool Campylobacter PCR (NotDetected) Stl C. diff Tox A/B PCR (NotDetected) Stool Cryptosporidium PCR (NotDetected) Stl E.coli Shiga Tox PCR (NotDetected) Stl Enterotoxigenic E PCR (NotDetected) Stool EPEC (PCR) (NotDetected) Stool EAEC (PCR) (NotDetected) Stl E. histolytica PCR (NotDetected) Stool Giardia Lamblia PCR (NotDetected) Stool Salmonella PCR (NotDetected) Stool Sapovirus (PCR) (NotDetected) Stl P. shigelloides PCR (NotDetected) Stl Shigella/EIEC PCR (NotDetected) St Y.enterocolitica PCR (NotDetected) Stool Vibrio (PCR) (NotDetected) Stl Vibrio cholerae PCR (NotDetected) Stl Norovirus GI/GII PCR (NotDetected) SARS-CoV-2, RNA, NAAT (NEGATIVE) 01/07/22 01/07/22 01/07/22 Range/Units 13:46 13:46 13:46 WBC (4.8-10.8) K/uL RBC (4.2-5.4) M/uL Hgb (12.0-16.0) g/dL Hct (37-47) % MCV (80-100) fL MCH (25-34) pg MCHC (32-36) g/dL RDW Std Deviation (36.4-46.3) fL RDW Coeff of Teresa (11.5-14.5) % Plt Count (130-400) K/uL MPV (7.4-10.4) fL Immature Gran % (Auto) % Neut % (Auto) % Lymph % (Auto) % [place] % (Auto) % Eos % (Auto) % Baso % (Auto) % Neut # (Auto) (1.4-6.5) K/uL Lymph # (Auto) (1.2-3.4) K/uL [place] # (Auto) (0.11-0.59) K/uL Eos # (Auto) (0-0.5) K/uL Baso # (Auto) (0-0.2) K/uL Immature Gran # (Auto) (0.00-0.02) K/uL PT (9.0-12.0) Seconds INR (0.9-1.1) APTT (21.0-31.0) Seconds PTT Ratio Sodium 140 (136-145) mmol/L Potassium 3.3 L (3.5-5.1) mmol/L Chloride 104 (98-107) mmol/L Carbon Dioxide 24 (21-32) mmol/L Anion Gap 12 H (3-11) BUN 8 (6-23) mg/dl Creatinine 1.53 H (0.6-1.2) mg/dl Est Cr Clr Drug Dosing Not Reportable Est GFR ( Amer) 40.1 ml/min Est GFR (Non-Af Amer) 34.6 ml/min BUN/Creatinine Ratio 5.2 L (10-20) Glucose 126 H (70-99(Fasting)) mg/dl POC Glucose (70-99) mg/dl Lactate 1.2 (0.4-2.0) mmol/L Calcium 9.9 (8.5-10.1) mg/dl Magnesium 1.6 L (1.7-2.4) mg/dl Total Bilirubin 0.5 (0.2-1.0) mg/dl AST 75 H (13-39) U/L ALT 60 H (7-52) U/L Alkaline Phosphatase 111 H (34-104) U/L Troponin I < 0.03 (0-0.04) ng/ml Total Protein 7.2 (6.0-8.3) gm/dl Albumin 3.7 (3.4-5.0) gm/dl Globulin 3.5 (2.5-4.0) gm/dl Albumin/Globulin Ratio 1.1 (0.9-2) Procalcitonin 0.07 (0-0.5) ng/ml Urine Color Urine Appearance (Clear) Urine pH (4.5-7.5) Ur Specific Mars (1.000-1.030) Urine Protein (Negative) Urine Glucose (UA) (Negative) Urine Ketones (Negative) Urine Blood (Negative) Urine Nitrite (Negative) Urine Bilirubin (Negative) Urine Urobilinogen (Negative) Ur Leukocyte Esterase (Negative) Urine WBC (Auto) (0-5) /hpf Urine RBC (Auto) (0-4) /hpf U Hyaline Cast (Auto) (0-5) /lpf U Epithel Cells (Auto) (0-5) /lpf Urine Bacteria (Auto) (Negative) Urine Yeast Stl C. cayetanensis PCR (NotDetected) Stool Rotavirus A PCR (NotDetected) Stl Adenov F 40/41 PCR (NotDetected) Stool Astrovirus (PCR) (NotDetected) Stool Campylobacter PCR (NotDetected) Stl C. diff Tox A/B PCR (NotDetected) Stool Cryptosporidium PCR (NotDetected) Stl E.coli Shiga Tox PCR (NotDetected) Stl Enterotoxigenic E PCR (NotDetected) Stool EPEC (PCR) (NotDetected) Stool EAEC (PCR) (NotDetected) Stl E. histolytica PCR (NotDetected) Stool Giardia Lamblia PCR (NotDetected) Stool Salmonella PCR (NotDetected) Stool Sapovirus (PCR) (NotDetected) Stl P. shigelloides PCR (NotDetected) Stl Shigella/EIEC PCR (NotDetected) St Y.enterocolitica PCR (NotDetected) Stool Vibrio (PCR) (NotDetected) Stl Vibrio cholerae PCR (NotDetected) Stl Norovirus GI/GII PCR (NotDetected) SARS-CoV-2, RNA, NAAT (NEGATIVE) 01/07/22 01/07/22 01/07/22 Range/Units 13:46 13:46 13:16 WBC 10.76 (4.8-10.8) K/uL RBC 3.96 L (4.2-5.4) M/uL Hgb 11.8 L (12.0-16.0) g/dL Hct 36.4 L (37-47) % MCV 91.9 (80-100) fL MCH 29.8 (25-34) pg MCHC 32.4 (32-36) g/dL RDW Std Deviation 47.2 H (36.4-46.3) fL RDW Coeff of Teresa 14.1 (11.5-14.5) % Plt Count 359 (130-400) K/uL MPV 11.1 H (7.4-10.4) fL Immature Gran % (Auto) 0.8 % Neut % (Auto) 70.6 % Lymph % (Auto) 13.5 % [place] % (Auto) 10.7 % Eos % (Auto) 4.1 % Baso % (Auto) 0.3 % Neut # (Auto) 7.60 H (1.4-6.5) K/uL Lymph # (Auto) 1.45 (1.2-3.4) K/uL [place] # (Auto) 1.15 H (0.11-0.59) K/uL Eos # (Auto) 0.44 (0-0.5) K/uL Baso # (Auto) 0.03 (0-0.2) K/uL Immature Gran # (Auto) 0.09 H (0.00-0.02) K/uL PT 10.3 (9.0-12.0) Seconds INR 1.0 (0.9-1.1) APTT 23.4 (21.0-31.0) Seconds PTT Ratio 0.9 Sodium (136-145) mmol/L Potassium (3.5-5.1) mmol/L Chloride (98-107) mmol/L Carbon Dioxide (21-32) mmol/L Anion Gap (3-11) BUN (6-23) mg/dl Creatinine (0.6-1.2) mg/dl Est Cr Clr Drug Dosing Est GFR ( Amer) ml/min Est GFR (Non-Af Amer) ml/min BUN/Creatinine Ratio (10-20) Glucose (70-99(Fasting)) mg/dl POC Glucose (70-99) mg/dl Lactate (0.4-2.0) mmol/L Calcium (8.5-10.1) mg/dl Magnesium (1.7-2.4) mg/dl Total Bilirubin (0.2-1.0) mg/dl AST (13-39) U/L ALT (7-52) U/L Alkaline Phosphatase (34-104) U/L Troponin I (0-0.04) ng/ml Total Protein (6.0-8.3) gm/dl Albumin (3.4-5.0) gm/dl Globulin (2.5-4.0) gm/dl Albumin/Globulin Ratio (0.9-2) Procalcitonin (0-0.5) ng/ml Urine Color Dark Yellow Urine Appearance Turbid A (Clear) Urine pH 6.0 (4.5-7.5) Ur Specific Mars 1.020 (1.000-1.030) Urine Protein 3+ H (Negative) Urine Glucose (UA) Negative (Negative) Urine Ketones 1+ H (Negative) Urine Blood 2+ H (Negative) Urine Nitrite Negative (Negative) Urine Bilirubin 1+ H (Negative) Urine Urobilinogen Negative (Negative) Ur Leukocyte Esterase 3+ H (Negative) Urine WBC (Auto) >30 H (0-5) /hpf Urine RBC (Auto) 10-30 H (0-4) /hpf U Hyaline Cast (Auto) 10-30 H (0-5) /lpf U Epithel Cells (Auto) >30 H (0-5) /lpf Urine Bacteria (Auto) Negative (Negative) Urine Yeast Not Reportable Stl C. cayetanensis PCR (NotDetected) Stool Rotavirus A PCR (NotDetected) Stl Adenov F 40/41 PCR (NotDetected) Stool Astrovirus (PCR) (NotDetected) Stool Campylobacter PCR (NotDetected) Stl C. diff Tox A/B PCR (NotDetected) Stool Cryptosporidium PCR (NotDetected) Stl E.coli Shiga Tox PCR (NotDetected) Stl Enterotoxigenic E PCR (NotDetected) Stool EPEC (PCR) (NotDetected) Stool EAEC (PCR) (NotDetected) Stl E. histolytica PCR (NotDetected) Stool Giardia Lamblia PCR (NotDetected) Stool Salmonella PCR (NotDetected) Stool Sapovirus (PCR) (NotDetected) Stl P. shigelloides PCR (NotDetected) Stl Shigella/EIEC PCR (NotDetected) St Y.enterocolitica PCR (NotDetected) Stool Vibrio (PCR) (NotDetected) Stl Vibrio cholerae PCR (NotDetected) Stl Norovirus GI/GII PCR (NotDetected) SARS-CoV-2, RNA, NAAT (NEGATIVE) 01/07/22 Range/Units 12:59 WBC (4.8-10.8) K/uL RBC (4.2-5.4) M/uL Hgb (12.0-16.0) g/dL Hct (37-47) % MCV (80-100) fL MCH (25-34) pg MCHC (32-36) g/dL RDW Std Deviation (36.4-46.3) fL RDW Coeff of Teresa (11.5-14.5) % Plt Count (130-400) K/uL MPV (7.4-10.4) fL Immature Gran % (Auto) % Neut % (Auto) % Lymph % (Auto) % [place] % (Auto) % Eos % (Auto) % Baso % (Auto) % Neut # (Auto) (1.4-6.5) K/uL Lymph # (Auto) (1.2-3.4) K/uL [place] # (Auto) (0.11-0.59) K/uL Eos # (Auto) (0-0.5) K/uL Baso # (Auto) (0-0.2) K/uL Immature Gran # (Auto) (0.00-0.02) K/uL PT (9.0-12.0) Seconds INR (0.9-1.1) APTT (21.0-31.0) Seconds PTT Ratio Sodium (136-145) mmol/L Potassium (3.5-5.1) mmol/L Chloride (98-107) mmol/L Carbon Dioxide (21-32) mmol/L Anion Gap (3-11) BUN (6-23) mg/dl Creatinine (0.6-1.2) mg/dl Est Cr Clr Drug Dosing Est GFR ( Amer) ml/min Est GFR (Non-Af Amer) ml/min BUN/Creatinine Ratio (10-20) Glucose (70-99(Fasting)) mg/dl POC Glucose (70-99) mg/dl Lactate (0.4-2.0) mmol/L Calcium (8.5-10.1) mg/dl Magnesium (1.7-2.4) mg/dl Total Bilirubin (0.2-1.0) mg/dl AST (13-39) U/L ALT (7-52) U/L Alkaline Phosphatase (34-104) U/L Troponin I (0-0.04) ng/ml Total Protein (6.0-8.3) gm/dl Albumin (3.4-5.0) gm/dl Globulin (2.5-4.0) gm/dl Albumin/Globulin Ratio (0.9-2) Procalcitonin (0-0.5) ng/ml Urine Color Urine Appearance (Clear) Urine pH (4.5-7.5) Ur Specific Mars (1.000-1.030) Urine Protein (Negative) Urine Glucose (UA) (Negative) Urine Ketones (Negative) Urine Blood (Negative) Urine Nitrite (Negative) Urine Bilirubin (Negative) Urine Urobilinogen (Negative) Ur Leukocyte Esterase (Negative) Urine WBC (Auto) (0-5) /hpf Urine RBC (Auto) (0-4) /hpf U Hyaline Cast (Auto) (0-5) /lpf U Epithel Cells (Auto) (0-5) /lpf Urine Bacteria (Auto) (Negative) Urine Yeast Stl C. cayetanensis PCR (NotDetected) Stool Rotavirus A PCR (NotDetected) Stl Adenov F 40/41 PCR (NotDetected) Stool Astrovirus (PCR) (NotDetected) Stool Campylobacter PCR (NotDetected) Stl C. diff Tox A/B PCR (NotDetected) Stool Cryptosporidium PCR (NotDetected) Stl E.coli Shiga Tox PCR (NotDetected) Stl Enterotoxigenic E PCR (NotDetected) Stool EPEC (PCR) (NotDetected) Stool EAEC (PCR) (NotDetected) Stl E. histolytica PCR (NotDetected) Stool Giardia Lamblia PCR (NotDetected) Stool Salmonella PCR (NotDetected) Stool Sapovirus (PCR) (NotDetected) Stl P. shigelloides PCR (NotDetected) Stl Shigella/EIEC PCR (NotDetected) St Y.enterocolitica PCR (NotDetected) Stool Vibrio (PCR) (NotDetected) Stl Vibrio cholerae PCR (NotDetected) Stl Norovirus GI/GII PCR (NotDetected) SARS-CoV-2, RNA, NAAT NEGATIVE (NEGATIVE)
[2022-01-08] MEDS ORDERED: TPN/PPN CONSULT PHARMACY PRN (11:37)
[2022-01-08] MEDS: ACETAMINOPHEN 1,000 MG/100 ML VIAL IV SCH ×2 (12:24→20:50)
[2022-01-08] MEDS: PANTOprazole 40 MG in SYRINGE 0 ML IV SCH ×2 (12:25→20:49)
[2022-01-08] MEDS ORDERED: DEXTROSE 10% 1,000 ML IV PRN (13:02)
[2022-01-08] MEDS: CEFEPIME 2,000 MG in SYRINGE 0 ML IV SCH (14:05)
[2022-01-08] MEDS: DAPTOmycin 360 MG in SYRINGE 0 ML IV SCH (14:05)
--- NOTE | 2022-01-08 14:45 | Hospitalist Progress Note ---
Date of Service January 08, 2022 delayed entry date of service noted above Assessment & Plan (1) Nausea & vomiting: Plan: per admitting service notes with addendum: (1) Nausea & vomiting: Plan: Intractable nausea, vomiting Diarrhea Likely due to recent infection from Complicated UTI, Medications --CT Abd: 1. Stable positioning of the left ureteral stent with unchanged mild left-sided pelvocaliectasis. 2. There is decreased bilateral perinephric stranding compared to the prior study. 3. Nonobstructing bilateral nephrolithiasis. 4. No bowel obstruction or bowel wall thickening. 5. Subtotal colectomy. 6. Moderate sized hiatal hernia. 7. Additional findings as above. --Stool PCR panel: Negative -- GI consulted outpatient EGD recommended -- Continue clear liquid diet PPN to be started --Continue Protonix IV twice daily continue antiemetics, pain medications next Recurrent UTI Complex UTI H/O nephrolithiasis H/O VRE, Klebsiella UTI Based on Records: 10/11/2021-10/24/2021: Patient admitted for management of 5 mm obstructing calculus just above the left vesicoureteral junction. S/p cystoscopy with left retrograde pyelogram aspiration and stent placement by Dr. Adam on 10/12. Hospital course complicated by acute respiratory acidosis requiring intubation. 10/30/2021-11/09/2021: Patient admitted for COVID-19 pneumonia. Required only a small amount of supplemental oxygen. Completed a course of Decadron. 11/18/2021 -12/06/2021 [place] [facility] [place] Patient admitted for flank pain, UTI, left renal cyst Urine culture from 11/17 grew Klebsiella, urine culture from 11/26 grew Enterococcus, urine culture from 12/06 grew VRE. --Patient could not complete p.o. antibiotics Vantin, linezolid which was prescribed for 8 more days during prior hospitalization --Start broad-spectrum antibiotics with daptomycin, cefepime for now --Blood, urine cultures obtained --Consider urology evaluation if needed 01/08/2022 Blood culture: Negative so far History of VRE, Klebsiella UTI Continue daptomycin plus cefepime Hypokalemia Hypomagnesemia Secondary to GI losses Replete electrolytes as needed --Resolved Cough Likely acute bronchitis CXR:No acute cardiopulmonary disease. On Antibiotics as above --Respiratory status stable Transaminitis -Never improved COPD Chronic respiratory failure with hypoxia On 2 L supplemental oxygen at baseline No signs of exacerbation on Trelegy DM Type II: Last A1c: 6.1 in October 2021 Hold PO meds ISS, Accu checks, Diabetic diet Dyslipidemia Hold statin while on Dapto CKD IV Creatinine at baseline Monitor renal function Avoid nephrotoxic agents as able H/O colon cancer S/P colectomy DVT Px: Heparin SQ CODE STATUS Full code plan of care discussed with patient in detail and at length all questions answered She is understanding, agreeable, comfortable with the plan of care Admission and Anticipated Discharge Date Admission Date: January 07, 2022 Subjective ff up for nausea/vomiting, UTI, etc seen resting in bed, comfortable somewhat states she has nausea, unable to eat or drink has lower quadrant pain no fever/chills no chest pain, dyspnea, palpitations, dizziness no other symptoms Review of Systems Review of Systems: all noted and negative except for above Physical Exam Physical Exam: General- oriented x 3, not in distress, speaks in sentences with no effort or accessory muscle use Head- atraumatic Eyes- PERRL, EOMI, anicteric ENT- oropharynx clear Neck- supple, no JVD, no adenopathy, no thyromegaly; carotids +2/2, no bruits appreciated Lungs- clear to auscultation bilaterally, no rales/wheezes Heart- normal rate, regular rhythm; no murmur, no gallop, no rub appreciated Abdomen- normal bowel sounds, nondistended, soft, (+) moderate lower qaud tenderness, no masses or hepatosplenomegaly Extremities- no pretibial edema, no calf tenderness; peripheral pulses intact Neuro- alert, oriented x 3; CN 2-12 grossly intact; motor 5/5 bilaterally;sensation 100% on all extremities; no other gross focal neurologic deficits Skin- warm & dry Results & Data Results & Data ([facility]) Vital Signs (Past 12 Hours) Vital Signs Temp Pulse Pulse Resp BP Pulse Ox Pulse Ox 01/08/22 14:00 18 96 01/08/22 13:00 96 01/08/22 10:54 36.6 C 97 H 18 125/79 96 01/08/22 10:00 16 98 01/08/22 09:20 93 H 01/08/22 06:40 36.7 C 93 H 19 104/70 95 01/08/22 06:19 18 94 01/08/22 03:15 36.7 C 86 19 124/74 94 all noted and reviewed including below
--- NOTE | 2022-01-08 14:47 | Electrocardiogram Report ---
Test Reason : Blood Pressure : / mmHG Vent. Rate : 095 BPM Atrial Rate : 095 BPM P-R Int : 146 ms QRS Dur : 060 ms QT Int : 346 ms P-R-T Axes : -03 000 060 degrees QTc Int : 434 ms Poor data quality, interpretation may be adversely affected Normal sinus rhythm Low voltage QRS Cannot rule out Anterior infarct (cited on or before 22-DEC-2021) Abnormal ECG When compared with ECG of 07-JAN-2022 12:51, QRS voltage has decreased Criteria for Inferior infarct are no longer Present Confirmed by Kodak Mei ([id number]) on 01/08/2022 2:47:12 PM Referred By: REFERRED SELF Confirmed By:Kodak Mei
[2022-01-08] MEDS ORDERED: PERIPHERAL TPN IV SCH (16:00)
[2022-01-08] MEDS ORDERED: D5W IV SCH (16:00)
[2022-01-08] MEDS ORDERED: AMINO ACIDS 4.25% IV SCH (16:00)
[2022-01-08] MEDS: CLINOLIPID 20% IV FAT EMULSION 100 ML IV SCH ×2 (16:38→19:04)
[2022-01-08] MEDS: CLOPIDOGREL BISULFATE 75 MG TAB PO SCH (20:18)
[2022-01-08] MEDS: METOPROLOL SUCC 25MG EXT REL TAB PO SCH (20:19)
[2022-01-08] MEDS: MAGNESIUM OXIDE 400 MG TAB PO SCH (20:19)
[2022-01-09] MEDS: ACETAMINOPHEN 1,000 MG/100 ML VIAL IV SCH ×3 (04:52→19:59)
[2022-01-09 07:31] LABS: BUN Creatinine Ratio 10.8 (10-20); Calcium 8.2 mg/dl (8.5-10.1); Creatinine Clr Calc Pharmacy 47.6 ml/min; Est GFR (African American) 65.5 ml/min; Est GFR (Non-African American) 56.5 ml/min; Magnesium 1.9 mg/dl (1.7-2.4); Phosphorus 3.1 mg/dl (2.5-4.9)
[2022-01-09] MEDS ORDERED: PHENAZOPYRIDINE HCL 100 MG TAB PO PRN (08:15)
[2022-01-09] MEDS: INSULIN ASPART PER UNIT SC SCH ×4 (08:17→19:47)
[2022-01-09] MEDS: PANTOprazole 40 MG in SYRINGE 0 ML IV SCH ×2 (10:29→19:59)
[2022-01-09] MEDS: MoRPHine SULFATE 2 MG/ML CARP IV PRN ×2 (10:29→15:28)
[2022-01-09] MEDS: HEPARIN SOD 5,000 UNIT/0.5 ML VIAL SQ SCH ×2 (10:30→19:58)
[2022-01-09] MEDS: PANTOprazole 40 MG TAB PO SCH ×2 (10:30→19:56)
[2022-01-09] MEDS: LIDOCAINE 5% 1 PATCH TD SCH (10:31)
[2022-01-09] MEDS: FLUTICASONE FUROATE 100MCG 14 PUFFS/INHALER INH SCH (10:31)
[2022-01-09] MEDS: OXcarbazepine 150 MG TABLET PO SCH ×2 (10:31→19:56)
[2022-01-09] MEDS: METOPROLOL SUCC 50MG EXT REL TAB PO SCH (10:31)
[2022-01-09] MEDS: UMECLIDINIUM/VILANTEROL 62.5/25MCG 7 PUFFS/INHALER INH SCH (10:31)
[2022-01-09] MEDS: TAMSULOSIN HCL 0.4 MG CAP PO SCH (10:31)
--- NOTE | 2022-01-09 13:56 | Hospitalist Progress Note ---
Date of Service January 09, 2022 Assessment & Plan (1) Nausea & vomiting: Plan: Intractable nausea, vomiting Diarrhea Likely due to recent infection from Complicated UTI, Medications --CT Abd: 1. Stable positioning of the left ureteral stent with unchanged mild left-sided pelvocaliectasis. 2. There is decreased bilateral perinephric stranding compared to the prior study. 3. Nonobstructing bilateral nephrolithiasis. 4. No bowel obstruction or bowel wall thickening. 5. Subtotal colectomy. 6. Moderate sized hiatal hernia. 7. Additional findings as above. --Stool PCR panel: Negative -- GI consulted outpatient EGD recommended -- patient about the same today Continue clear liquid diet PPN started as patient has not had p.o. intake times more than 1 week --Continue Protonix IV twice daily continue antiemetics, pain medications next Recurrent UTI Complex UTI H/O nephrolithiasis H/O VRE, Klebsiella UTI Based on Records: 10/11/2021-10/24/2021: Patient admitted for management of 5 mm obstructing calculus just above the left vesicoureteral junction. S/p cystoscopy with left retrograde pyelogram aspiration and stent placement by Dr. Adam on 10/12. Hospital course complicated by acute respiratory acidosis requiring intubation. 10/30/2021-11/09/2021: Patient admitted for COVID-19 pneumonia. Required only a small amount of supplemental oxygen. Completed a course of Decadron. 11/18/2021 -12/06/2021 (transferred to [facility], discharge 12/11/2021): Patient admitted for flank pain, UTI, left renal cyst Urine culture from 11/17 grew Klebsiella, urine culture from 11/26 grew Enterococcus, urine culture from 12/06 grew VRE. --Patient could not complete p.o. antibiotics Vantin, linezolid which was prescribed for 8 more days during prior hospitalization --Start broad-spectrum antibiotics with daptomycin, cefepime for now --Blood, urine cultures obtained --Consider urology evaluation if needed 01/09/2022 Blood culture: Negative so far History of VRE, Klebsiella UTI Continue daptomycin plus cefepime day #2 Hypokalemia Hypomagnesemia Secondary to GI losses Replete electrolytes as needed --Resolved Cough Likely acute bronchitis CXR:No acute cardiopulmonary disease. On Antibiotics as above --Respiratory status stable Transaminitis -Never improved COPD Chronic respiratory failure with hypoxia On 2 L supplemental oxygen at baseline No signs of exacerbation on Trelegy DM Type II: Last A1c: 6.1 in October 2021 Hold PO meds ISS, Accu checks, Diabetic diet Dyslipidemia Hold statin while on Dapto CKD IV Creatinine at baseline Monitor renal function Avoid nephrotoxic agents as able H/O colon cancer S/P colectomy DVT Px: Heparin SQ CODE STATUS Full code plan of care discussed with patient in detail and at length all questions answered She is understanding, agreeable, comfortable with the plan of care Admission and Anticipated Discharge Date Admission Date: January 07, 2022 Subjective ff up for nausea/vomiting, UTI, etc seen resting in bed, comfortable sleeping but easily awakened states she feels about the same tried a few bites of food this AM, had nausea immediately reports lower abd, L flank pain no fever/chills, no chest pain, dyspnea, palpitations, dizziness no other symptoms Review of Systems Review of Systems: all noted and negative except for above Physical Exam Physical Exam: General- oriented x 3, not in distress, speaks in sentences with no effort or accessory muscle use Eyes- anicteric Neck- no JVD Lungs- clear breath sounds bilaterally, no rales/wheezes Heart- normal rate, regular rhythm; no murmurs Abdomen- normal bowel sounds, nondistended, soft, mild lower quadrant tenderness Extremities- no pretibial edema, no calf tenderness Neuro- alert, oriented x 3; no gross focal neurologic deficits Skin- warm & dry Results & Data Results & Data ([facility]) Vital Signs (Past 12 Hours) Vital Signs Temp Pulse Pulse Resp BP BP Pulse Ox 01/09/22 12:04 37.0 C 81 16 128/79 96 01/09/22 08:00 73 01/09/22 07:19 36.7 C 80 18 126/81 98 01/09/22 03:56 36.5 C 84 16 128/82 96 all noted and reviewed including below
[2022-01-09] MEDS: CEFEPIME 2,000 MG in SYRINGE 0 ML IV SCH (14:27)
[2022-01-09] MEDS: DAPTOmycin 360 MG in SYRINGE 0 ML IV SCH (14:28)
[2022-01-09] MEDS: ONDANSETRON INJ 2 MG/ML 2 ML VIAL IV PRN (15:28)
[2022-01-09] MEDS ORDERED: PERIPHERAL TPN IV SCH (16:00)
[2022-01-09] MEDS ORDERED: AMINO ACIDS 4.25% IV SCH (16:00)
[2022-01-09] MEDS ORDERED: D5W IV SCH (16:00)
[2022-01-09] MEDS: CLINOLIPID 20% IV FAT EMULSION 100 ML IV SCH ×2 (16:31→19:14)
[2022-01-09] MEDS: NSS + 20MEQ KCL 20 MEQ/1,000 ML BAG IV SCH (19:15)
[2022-01-09] MEDS: CLOPIDOGREL BISULFATE 75 MG TAB PO SCH (19:48)
[2022-01-09] MEDS: METOPROLOL SUCC 25MG EXT REL TAB PO SCH (19:48)
[2022-01-09] MEDS: MAGNESIUM OXIDE 400 MG TAB PO SCH (19:48)
[2022-01-10] MEDS: ACETAMINOPHEN 1,000 MG/100 ML VIAL IV SCH ×3 (03:30→21:09)
[2022-01-10 07:57] LABS: BUN Creatinine Ratio 16.2 (10-20); Calcium 9.1 mg/dl (8.5-10.1); Creatinine Clr Calc Pharmacy 40.5 ml/min; Est GFR (African American) 55.4 ml/min; Est GFR (Non-African American) 47.8 ml/min; Magnesium 1.8 mg/dl (1.7-2.4); Phosphorus 3.2 mg/dl (2.5-4.9); Potassium 4.3 mmol/L (3.5-5.1)
[2022-01-10] MEDS: HEPARIN SOD 5,000 UNIT/0.5 ML VIAL SQ SCH ×2 (08:03→21:10)
[2022-01-10] MEDS: FLUTICASONE FUROATE 100MCG 14 PUFFS/INHALER INH SCH (08:04)
[2022-01-10] MEDS: LIDOCAINE 5% 1 PATCH TD SCH (08:04)
[2022-01-10] MEDS: METOPROLOL SUCC 50MG EXT REL TAB PO SCH (08:04)
[2022-01-10] MEDS: PANTOprazole 40 MG TAB PO SCH ×2 (08:05→21:18)
[2022-01-10] MEDS: UMECLIDINIUM/VILANTEROL 62.5/25MCG 7 PUFFS/INHALER INH SCH (08:05)
[2022-01-10] MEDS: PANTOprazole 40 MG in SYRINGE 0 ML IV SCH ×2 (08:05→21:06)
[2022-01-10] MEDS: TAMSULOSIN HCL 0.4 MG CAP PO SCH (08:05)
[2022-01-10] MEDS: OXcarbazepine 150 MG TABLET PO SCH ×2 (08:05→21:18)
[2022-01-10] MEDS: MoRPHine SULFATE 2 MG/ML CARP IV PRN ×2 (08:11→15:51)
[2022-01-10] MEDS: INSULIN ASPART PER UNIT SC SCH ×4 (08:16→21:19)
--- NOTE | 2022-01-10 11:37 | Hospitalist Progress Note ---
Date of Service January 10, 2022 Assessment & Plan (1) Nausea & vomiting: Plan: Intractable nausea, vomiting Diarrhea Likely due to recent infection from Complicated UTI, Medications --CT Abd: 1. Stable positioning of the left ureteral stent with unchanged mild left-sided pelvocaliectasis. 2. There is decreased bilateral perinephric stranding compared to the prior study. 3. Nonobstructing bilateral nephrolithiasis. 4. No bowel obstruction or bowel wall thickening. 5. Subtotal colectomy. 6. Moderate sized hiatal hernia. 7. Additional findings as above. --Stool PCR panel: Negative -- GI consulted outpatient EGD recommended -- n/v improving tolerated breakfast wekk Continue clear liquid diet PPN started as patient has not had p.o. intake times more than 1 week --Continue Protonix IV twice daily continue antiemetics, pain medications next Recurrent UTI Complex UTI H/O nephrolithiasis H/O VRE, Klebsiella UTI Based on Records: 10/11/2021-10/24/2021: Patient admitted for management of 5 mm obstructing calculus just above the left vesicoureteral junction. S/p cystoscopy with left retrograde pyelogram aspiration and stent placement by Dr. Adam on 10/12. Hospital course complicated by acute respiratory acidosis requiring intubation. 10/30/2021-11/09/2021: Patient admitted for COVID-19 pneumonia. Required only a small amount of supplemental oxygen. Completed a course of Decadron. 11/18/2021 -12/06/2021 (transferred to [facility] [place] [place], discharge 12/11/2021): Patient admitted for flank pain, UTI, left renal cyst Urine culture from 11/17 grew Klebsiella, urine culture from 11/26 grew Enterococcus, urine culture from 12/06 grew VRE. --Patient could not complete p.o. antibiotics Vantin, linezolid which was prescribed for 8 more days during prior hospitalization --Start broad-spectrum antibiotics with daptomycin, cefepime for now --Blood, urine cultures obtained --Consider urology evaluation if needed 01/10/2022 Blood culture: Negative so far History of VRE, Klebsiella UTI Continue daptomycin plus cefepime day #3/ Hypokalemia Hypomagnesemia Secondary to GI losses Replete electrolytes as needed --Resolved Cough Likely acute bronchitis CXR:No acute cardiopulmonary disease. On Antibiotics as above --Respiratory status stable Transaminitis -Never improved COPD Chronic respiratory failure with hypoxia On 2 L supplemental oxygen at baseline No signs of exacerbation on Trelegy DM Type II: Last A1c: 6.1 in October 2021 Hold PO meds ISS, Accu checks, Diabetic diet Dyslipidemia Hold statin while on Dapto CKD IV Creatinine at baseline Monitor renal function Avoid nephrotoxic agents as able H/O colon cancer S/P colectomy DVT Px: Heparin SQ CODE STATUS Full code plan of care discussed with patient in detail and at length all questions answered She is understanding, agreeable, comfortable with the plan of care Admission and Anticipated Discharge Date Admission Date: January 07, 2022 Subjective ff up for nausea/vomiting/diarrhea, UTI, etc seen resting in bed, comfortable states she tolerated 50% of breakfast today no nausea/vomiting 1 loose BM this morning lower abd pain about the same no chest pain, dyspnea, palpitations, dizziness no other symptoms Review of Systems Review of Systems: all noted and negative except for above Physical Exam Physical Exam: General- oriented x 3, not in distress, speaks in sentences with no effort or accessory muscle use Eyes- anicteric Neck- no JVD Lungs- clear breath sounds bilaterally Heart- normal rate, regular rhythm; no murmurs Abdomen- normal bowel sounds, nondistended, soft, mild lower quad tenderness Extremities- no pretibial edema, no calf tenderness Neuro- alert, oriented x 3; no gross focal neurologic deficits Skin- warm & dry Results & Data Results & Data ([facility]) Vital Signs (Past 12 Hours) Vital Signs Temp Pulse Pulse Resp BP Pulse Ox 01/10/22 08:00 93 H 18 94 01/10/22 03:25 36.5 C 79 18 104/72 94 01/10/22 00:28 93 H all noted and reviewed including below
[2022-01-10] MEDS: ONDANSETRON INJ 2 MG/ML 2 ML VIAL IV PRN ×2 (12:17→18:09)
[2022-01-10] MEDS: CEFEPIME 2,000 MG in SYRINGE 0 ML IV SCH (14:45)
[2022-01-10] MEDS: DAPTOmycin 360 MG in SYRINGE 0 ML IV SCH (14:45)
[2022-01-10] MEDS: CLINOLIPID 20% IV FAT EMULSION 100 ML IV SCH ×2 (15:47→18:09)
[2022-01-10] MEDS ORDERED: PERIPHERAL TPN IV SCH (16:00)
[2022-01-10] MEDS ORDERED: D5W IV SCH (16:00)
[2022-01-10] MEDS ORDERED: AMINO ACIDS 4.25% IV SCH (16:00)
[2022-01-10] MEDS: CLOPIDOGREL BISULFATE 75 MG TAB PO SCH (21:17)
[2022-01-10] MEDS: MAGNESIUM OXIDE 400 MG TAB PO SCH (21:18)
[2022-01-10] MEDS: METOPROLOL SUCC 25MG EXT REL TAB PO SCH (21:18)
[2022-01-11] MEDS: MoRPHine SULFATE 2 MG/ML CARP IV PRN ×4 (03:01→23:53)
[2022-01-11] MEDS: ACETAMINOPHEN 1,000 MG/100 ML VIAL IV SCH (03:31)
[2022-01-11 06:13] LABS: BUN Creatinine Ratio 17.5 (10-20); Blood Urea Nitrogen 27 mg/dl (6-23); Calcium 9.1 mg/dl (8.5-10.1); Carbon Dioxide 20 mmol/L (21-32); Chloride 107 mmol/L (98-107); Creatinine Clr Calc Pharmacy 30.8 ml/min; Est GFR (African American) 39.8 ml/min; Est GFR (Non-African American) 34.3 ml/min; Glucose 112 mg/dl (70-99(Fasting)); Phosphorus 3.4 mg/dl (2.5-4.9)
[2022-01-11] MEDS: INSULIN ASPART PER UNIT SC SCH ×4 (07:49→20:53)
[2022-01-11] MEDS: ONDANSETRON INJ 2 MG/ML 2 ML VIAL IV PRN ×3 (08:02→23:53)
[2022-01-11] MEDS: HEPARIN SOD 5,000 UNIT/0.5 ML VIAL SQ SCH ×2 (08:02→20:16)
[2022-01-11] MEDS: PANTOprazole 40 MG in SYRINGE 0 ML IV SCH ×2 (08:02→20:16)
[2022-01-11 08:03] LABS: Magnesium 1.6 mg/dl (1.7-2.4); Potassium 4.2 mmol/L (3.5-5.1)
[2022-01-11] MEDS: LIDOCAINE 5% 1 PATCH TD SCH (08:03)
[2022-01-11] MEDS: FLUTICASONE FUROATE 100MCG 14 PUFFS/INHALER INH SCH (08:04)
[2022-01-11] MEDS: TAMSULOSIN HCL 0.4 MG CAP PO SCH (08:05)
[2022-01-11] MEDS: UMECLIDINIUM/VILANTEROL 62.5/25MCG 7 PUFFS/INHALER INH SCH (08:05)
[2022-01-11] MEDS: PANTOprazole 40 MG TAB PO SCH ×2 (08:06→20:16)
[2022-01-11] MEDS: METOPROLOL SUCC 50MG EXT REL TAB PO SCH (08:07)
[2022-01-11] MEDS: OXcarbazepine 150 MG TABLET PO SCH ×2 (08:08→20:16)
[2022-01-11] MEDS: DAPTOmycin 360 MG in SYRINGE 0 ML IV SCH (13:04)
[2022-01-11] MEDS: CEFEPIME 2,000 MG in SYRINGE 0 ML IV SCH (13:04)
[2022-01-11] MEDS ORDERED: CLINOLIPID 20% IV FAT EMULSION 100 ML IV SCH (16:00)
[2022-01-11] MEDS ORDERED: AMINO ACIDS 4.25% IV SCH (16:00)
[2022-01-11] MEDS ORDERED: D5W IV SCH (16:00)
[2022-01-11] MEDS ORDERED: PERIPHERAL TPN IV SCH (16:00)
[2022-01-11] MEDS ORDERED: ADENOSINE IV SOLN 3 MG/ML 2 ML VIAL IV ONE (17:13)
[2022-01-11] MEDS ORDERED: SODIUM CHLORIDE 0.9% 1000ML 500 ML IV ONE (17:18)
[2022-01-11] MEDS ORDERED: METOPROLOL TARTRATE 1 MG/ML VIAL IV STA ×2 (18:27→19:55)
[2022-01-11] MEDS ORDERED: METOPROLOL TARTRATE 1 MG/ML VIAL IV ONE (18:28)
[2022-01-11] MEDS: MAGNESIUM SULFATE / D5W 1 GM/100 ML BAG IV SCH ×2 (18:33→20:11)
--- NOTE | 2022-01-11 18:38 | Hospitalist Progress Note ---
Date of Service January 11, 2022 Assessment & Plan (1) Nausea & vomiting: Plan: Intractable nausea, vomiting Diarrhea Likely due to recent infection from Complicated UTI, Medications --CT Abd: 1. Stable positioning of the left ureteral stent with unchanged mild left-sided pelvocaliectasis. 2. There is decreased bilateral perinephric stranding compared to the prior study. 3. Nonobstructing bilateral nephrolithiasis. 4. No bowel obstruction or bowel wall thickening. 5. Subtotal colectomy. 6. Moderate sized hiatal hernia. 7. Additional findings as above. --Stool PCR panel: Negative -- GI consulted outpatient EGD recommended -- n/v improving Tolerating diet Discontinue PPN --Continue Protonix IV twice daily continue antiemetics, pain medications next Sinus tachycardia --Noted around 5 PM Patient asymptomatic Start NSS bolus, IV fluids, magnesium IV Continue usual metoprolol p.o. Metoprolol IV 5 mg given Recurrent UTI Complex UTI H/O nephrolithiasis H/O VRE, Klebsiella UTI Based on Records: 10/11/2021-10/24/2021: Patient admitted for management of 5 mm obstructing calculus just above the left vesicoureteral junction. S/p cystoscopy with left retrograde pyelogram aspiration and stent placement by Dr. Adam on 10/12. Hospital course complicated by acute respiratory acidosis requiring intubation. 10/30/2021-11/09/2021: Patient admitted for COVID-19 pneumonia. Required only a small amount of supplemental oxygen. Completed a course of Decadron. 11/18/2021 -12/06/2021 (transferred to [facility] [place], discharge 12/11/2021): Patient admitted for flank pain, UTI, left renal cyst Urine culture from 11/17 grew Klebsiella, urine culture from 11/26 grew Enterococcus, urine culture from 12/06 grew VRE. --Patient could not complete p.o. antibiotics Vantin, linezolid which was prescribed for 8 more days during prior hospitalization --Start broad-spectrum antibiotics with daptomycin, cefepime for now --Blood, urine cultures obtained --Consider urology evaluation if needed 01/11/2022 Blood culture: Negative so far History of VRE, Klebsiella UTI Continue daptomycin plus cefepime day #01/14 Hypokalemia Hypomagnesemia Secondary to GI losses Replace magnesium Cough Likely acute bronchitis CXR:No acute cardiopulmonary disease. On Antibiotics as above --Respiratory status stable Transaminitis -Never improved COPD Chronic respiratory failure with hypoxia On 2 L supplemental oxygen at baseline No signs of exacerbation on Trelegy DM Type II: Last A1c: 6.1 in October 2021 Hold PO meds ISS, Accu checks, Diabetic diet Dyslipidemia Hold statin while on Dapto CKD IV Creatinine at baseline Monitor renal function Avoid nephrotoxic agents as able H/O colon cancer S/P colectomy DVT Px: Heparin SQ CODE STATUS Full code plan of care discussed with patient in detail and at length all questions answered She is understanding, agreeable, comfortable with the plan of care Admission and Anticipated Discharge Date Admission Date: January 07, 2022 Subjective Follow-up for nausea, vomiting, diarrhea, UTI, etc. Seen resting in bed, comfortable no distress Good spirits States she feels better today Able to tolerate dinner last night and breakfast this morning Low abdominal pain improving No other symptoms Review of Systems Review of Systems: all noted and negative except for above Physical Exam Physical Exam: General- oriented x 3, not in distress, speaks in sentences with no effort or accessory muscle use Eyes- anicteric Neck- no JVD Lungs- clear breath sounds bilaterally, no rales/wheezes Heart- normal rate, regular rhythm; no murmurs Abdomen- normal bowel sounds, nondistended, soft, minimal lower quadrant tenderness Extremities- no pretibial edema, no calf tenderness Neuro- alert, oriented x 3; no gross focal neurologic deficits Skin- warm & dry Results & Data Results & Data ([facility]) Vital Signs (Past 12 Hours) Vital Signs Temp Pulse Pulse Resp BP BP Pulse Ox 01/11/22 17:00 01/11/22 16:08 36.7 C 110 H 18 94/66 L 93 01/11/22 14:43 122 H 01/11/22 13:00 01/11/22 12:00 18 98 01/11/22 10:50 36.6 C 83 19 110/71 93 01/11/22 08:41 67 01/11/22 08:00 18 96 01/11/22 06:59 36.4 C L 78 17 97/61 L 96 Pulse Ox 01/11/22 17:00 98 01/11/22 16:08 01/11/22 14:43 01/11/22 13:00 98 01/11/22 12:00 01/11/22 10:50 01/11/22 08:41 01/11/22 08:00 01/11/22 06:59 all noted and reviewed including below
[2022-01-11] MEDS: SODIUM CHLORIDE 0.9% 1000ML 1,000 ML IV SCH (19:31)
[2022-01-11] MEDS ORDERED: SODIUM CHLORIDE 0.9% 500 ML IV SCH (20:00)
[2022-01-11] MEDS: METOPROLOL SUCC 25MG EXT REL TAB PO SCH (20:16)
[2022-01-11] MEDS: MAGNESIUM OXIDE 400 MG TAB PO SCH (20:16)
[2022-01-11] MEDS: CLOPIDOGREL BISULFATE 75 MG TAB PO SCH (20:16)
[2022-01-11] MEDS: PHENAZOPYRIDINE HCL 100 MG TAB PO PRN (23:53)
[2022-01-12] MEDS: SODIUM CHLORIDE 0.9% 1000ML 1,000 ML IV SCH ×3 (01:05→17:36)
[2022-01-12 06:37] LABS: BUN Creatinine Ratio 18.2 (10-20); Calcium 8.6 mg/dl (8.5-10.1); Creatinine Clr Calc Pharmacy 36.1 ml/min; Est GFR (African American) 47.9 ml/min; Est GFR (Non-African American) 41.3 ml/min; Magnesium 2.2 mg/dl (1.7-2.4); Phosphorus 3.1 mg/dl (2.5-4.9); Potassium 3.6 mmol/L (3.5-5.1)
[2022-01-12] MEDS: INSULIN ASPART PER UNIT SC SCH ×4 (07:42→21:40)
[2022-01-12] MEDS: ONDANSETRON INJ 2 MG/ML 2 ML VIAL IV PRN ×3 (07:49→21:53)
[2022-01-12] MEDS: MoRPHine SULFATE 2 MG/ML CARP IV PRN ×3 (07:49→21:53)
[2022-01-12] MEDS: LIDOCAINE 5% 1 PATCH TD SCH (07:59)
[2022-01-12] MEDS: FLUTICASONE FUROATE 100MCG 14 PUFFS/INHALER INH SCH (07:59)
[2022-01-12] MEDS: METOPROLOL SUCC 50MG EXT REL TAB PO SCH (07:59)
[2022-01-12] MEDS: PANTOprazole 40 MG in SYRINGE 0 ML IV SCH (08:00)
[2022-01-12] MEDS: HEPARIN SOD 5,000 UNIT/0.5 ML VIAL SQ SCH ×2 (08:00→21:53)
[2022-01-12] MEDS: OXcarbazepine 150 MG TABLET PO SCH ×2 (08:01→21:51)
[2022-01-12] MEDS: UMECLIDINIUM/VILANTEROL 62.5/25MCG 7 PUFFS/INHALER INH SCH (08:01)
[2022-01-12] MEDS: PANTOprazole 40 MG TAB PO SCH ×2 (08:01→21:51)
[2022-01-12] MEDS: TAMSULOSIN HCL 0.4 MG CAP PO SCH (08:01)
[2022-01-12] MEDS: PHENAZOPYRIDINE HCL 100 MG TAB PO PRN (08:01)
--- NOTE | 2022-01-12 08:13 | Electrocardiogram Report ---
Test Reason : Blood Pressure : / mmHG Vent. 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
--- NOTE | 2022-01-12 08:33 | Electrocardiogram Report ---
Test Reason : Blood Pressure : / mmHG Vent. Rate : 149 BPM Atrial Rate : 149 BPM P-R Int : 136 ms QRS Dur : 060 ms QT Int : 294 ms P-R-T Axes : 000 -09 092 degrees QTc Int : 463 ms Sinus tachycardia Left ventricular hypertrophy with repolarization abnormality Old Inferior infarct Possible Old Anteroseptal infarct (cited on or before 22-DEC-2021) Abnormal ECG When compared with ECG of 08-JAN-2022 06:18, Vent. rate has increased BY 54 BPM Criteria for Inferior infarct is now Present Confirmed by Corey Contreras ([id number]) on 01/12/2022 8:32:33 AM Referred By: REFERRED SELF Confirmed By:Corey Contreras
[2022-01-12] MEDS: DAPTOmycin 360 MG in SYRINGE 0 ML IV SCH (14:08)
[2022-01-12] MEDS: CEFEPIME 2,000 MG in SYRINGE 0 ML IV SCH (14:08)
--- NOTE | 2022-01-12 18:00 | Hospitalist Progress Note ---
Date of Service January 12, 2022 Assessment & Plan (1) Nausea & vomiting: Plan: Intractable nausea, vomiting Diarrhea Likely due to recent infection from Complicated UTI, Medications --CT Abd: 1. Stable positioning of the left ureteral stent with unchanged mild left-sided pelvocaliectasis. 2. There is decreased bilateral perinephric stranding compared to the prior study. 3. Nonobstructing bilateral nephrolithiasis. 4. No bowel obstruction or bowel wall thickening. 5. Subtotal colectomy. 6. Moderate sized hiatal hernia. 7. Additional findings as above. --Stool PCR panel: Negative -- GI consulted outpatient EGD recommended -- n/v improving slowly Tolerating diet more Discontinue PPN --Continue Protonix IV twice daily continue antiemetics, pain medications next Sinus tachycardia --Noted 01/11/22 around 5 PM Patient asymptomatic Start NSS bolus, IV fluids, magnesium IV Continue usual metoprolol p.o. Metoprolol IV 5 mg given HR now normal Recurrent UTI, Partially treated? Complex UTI H/O nephrolithiasis H/O VRE, Klebsiella UTI Based on Records: 10/11/2021-10/24/2021: Patient admitted for management of 5 mm obstructing calculus just above the left vesicoureteral junction. S/p cystoscopy with left retrograde pyelogram aspiration and stent placement by Dr. Adam on 10/12. Hospital course complicated by acute respiratory acidosis requiring intubation. 10/30/2021-11/09/2021: Patient admitted for COVID-19 pneumonia. Required only a small amount of supplemental oxygen. Completed a course of Decadron. 11/18/2021 -12/06/2021 (transferred to [facility], discharge 12/11/2021): Patient admitted for flank pain, UTI, left renal cyst Urine culture from 11/17 grew Klebsiella, urine culture from 11/26 grew Enterococcus, urine culture from 12/06 grew VRE. --Patient could not complete p.o. antibiotics Vantin, linezolid which was prescribed for 8 more days during prior hospitalization --Start broad-spectrum antibiotics with daptomycin, cefepime for now --Blood, urine cultures obtained --Consider urology evaluation if needed 01/12/2022 Blood culture: Negative so far History of VRE, Klebsiella UTI Continue daptomycin plus cefepime day #5/7 Hypokalemia Hypomagnesemia Secondary to GI losses Replaced Cough Likely acute bronchitis CXR:No acute cardiopulmonary disease. On Antibiotics as above --Respiratory status stable Transaminitis -Never improved COPD Chronic respiratory failure with hypoxia On 2 L supplemental oxygen at baseline No signs of exacerbation on Trelegy DM Type II: Last A1c: 6.1 in October 2021 Hold PO meds ISS, Accu checks, Diabetic diet Dyslipidemia Hold statin while on Dapto CKD IV Creatinine at baseline Monitor renal function Avoid nephrotoxic agents as able H/O colon cancer S/P colectomy DVT Px: Heparin SQ CODE STATUS Full code Disposition lives at home PT/OT evaluation plan of care discussed with patient in detail and at length all questions answered She is understanding, agreeable, comfortable with the plan of care Admission and Anticipated Discharge Date Admission Date: January 07, 2022 Subjective ff up for UTI, nausea/vomiting, diarrhea, etc seen resting in bed, sleeping but easily awakened states she feels improved today able to tolerate food better lower abdominal pain improving no chest pain, palpitations, dizziness no other symptoms Review of Systems Review of Systems: all noted and negative except for above Physical Exam Physical Exam: General- oriented x 3, not in distress, speaks in sentences with no effort or accessory muscle use Eyes- anicteric Neck- no JVD Lungs- clear breath sounds bilaterally Heart- normal rate, regular rhythm; no murmurs Abdomen- normal bowel sounds, nondistended, soft,minimal tenderness on the lower quadrants Extremities- no pretibial edema, no calf tenderness Neuro- oriented x 3; no gross focal neurologic deficits Skin- warm & dry Results & Data Results & Data ([facility]) Vital Signs (Past 12 Hours) Vital Signs Temp Pulse Pulse Resp BP BP Pulse Ox 01/12/22 17:00 01/12/22 16:00 20 98 01/12/22 15:35 36.7 C 86 18 119/76 98 01/12/22 13:00 01/12/22 12:55 01/12/22 12:00 36.8 C 93 H 20 124/80 98 01/12/22 08:00 18 98 01/12/22 07:28 65 01/12/22 07:02 36.7 C 82 17 102/68 97 Pulse Ox Pulse Ox 01/12/22 17:00 95 01/12/22 16:00 01/12/22 15:35 01/12/22 13:00 97 01/12/22 12:55 94 01/12/22 12:00 01/12/22 08:00 01/12/22 07:28 01/12/22 07:02 all noted and reviewed including below
[2022-01-12] MEDS: METOPROLOL SUCC 25MG EXT REL TAB PO SCH (21:48)
[2022-01-12] MEDS: MAGNESIUM OXIDE 400 MG TAB PO SCH (21:51)
[2022-01-12] MEDS: CLOPIDOGREL BISULFATE 75 MG TAB PO SCH (21:52)
[2022-01-13] MEDS: SODIUM CHLORIDE 0.9% 1000ML 1,000 ML IV SCH (02:18)
[2022-01-13] MEDS: ONDANSETRON INJ 2 MG/ML 2 ML VIAL IV PRN ×3 (07:49→21:57)
[2022-01-13] MEDS: MoRPHine SULFATE 2 MG/ML CARP IV PRN ×3 (07:49→21:46)
[2022-01-13] MEDS: UMECLIDINIUM/VILANTEROL 62.5/25MCG 7 PUFFS/INHALER INH SCH ×2 (07:50→07:51)
[2022-01-13] MEDS: OXcarbazepine 150 MG TABLET PO SCH ×2 (07:51→21:46)
[2022-01-13] MEDS: TAMSULOSIN HCL 0.4 MG CAP PO SCH (07:51)
[2022-01-13] MEDS: METOPROLOL SUCC 50MG EXT REL TAB PO SCH (07:51)
[2022-01-13] MEDS: HEPARIN SOD 5,000 UNIT/0.5 ML VIAL SQ SCH ×2 (07:52→21:46)
[2022-01-13] MEDS: ADVANCED PROBIOTIC 1250 MG CAPSULE PO SCH (07:52)
[2022-01-13] MEDS: LIDOCAINE 5% 1 PATCH TD SCH (07:53)
[2022-01-13] MEDS: PANTOprazole 40 MG TAB PO SCH ×2 (07:53→21:46)
[2022-01-13] MEDS: FLUTICASONE FUROATE 100MCG 14 PUFFS/INHALER INH SCH (07:53)
[2022-01-13] MEDS: INSULIN ASPART PER UNIT SC SCH ×4 (08:07→21:36)
[2022-01-13 08:46] LABS: Anion Gap 6 (3-11); BUN Creatinine Ratio 14.1 (10-20); Blood Urea Nitrogen 23 mg/dl (6-23); Calcium 8.9 mg/dl (8.5-10.1); Carbon Dioxide 17 mmol/L (21-32); Chloride 115 mmol/L (98-107); Creatinine Clr Calc Pharmacy 31.8 ml/min; Est GFR (African American) 37.1 ml/min; Glucose 108 mg/dl (70-99(Fasting)); Magnesium 1.9 mg/dl (1.7-2.4); Sodium 138 mmol/L (136-145)
[2022-01-13] MEDS: LACTATED RINGER'S 1,000 ML IV SCH ×2 (11:38→22:08)
[2022-01-13] MEDS: DAPTOmycin 360 MG in SYRINGE 0 ML IV SCH (14:59)
[2022-01-13] MEDS: CEFEPIME 2,000 MG in SYRINGE 0 ML IV SCH (14:59)
--- NOTE | 2022-01-13 18:18 | Hospitalist Progress Note ---
Date of Service January 13, 2022 Assessment & Plan (1) Nausea & vomiting: Plan: Intractable nausea, vomiting Diarrhea Likely due to recent infection from Complicated UTI, Medications --CT Abd:Stable positioning of the left ureteral stent with unchanged mild left- sided pelvocaliectasis. There is decreased bilateral perinephric stranding compared to the prior study. Nonobstructing bilateral nephrolithiasis. No bowel obstruction or bowel wall thickening. Subtotal colectomy. Moderate sized hiatal hernia. --Stool PCR panel: Negative -- GI consulted: Recommends outpatient EGD --Nausea, vomiting, diarrhea slowly improving PPN discontinued Tolerating oral diet Continue Protonix BID Sinus tachycardia Patient asymptomatic Continue metoprolol Recurrent UTI, Partially treated? Complex UTI H/O nephrolithiasis H/O VRE, Klebsiella UTI Based on Records: 10/11/2021-10/24/2021: Patient admitted for management of 5 mm obstructing calculus just above the left vesicoureteral junction. S/p cystoscopy with left retrograde pyelogram aspiration and stent placement by Dr. Adam on 10/12. Hospital course complicated by acute respiratory acidosis requiring intubation. 10/30/2021-11/09/2021: Patient admitted for COVID-19 pneumonia. Required only a small amount of supplemental oxygen. Completed a course of Decadron. 11/18/2021 -12/06/2021 (transferred to [facility] [place], [place] 12/11/2021): Patient admitted for flank pain, UTI, left renal cyst Urine culture from 11/17 grew Klebsiella, urine culture from 11/26 grew Enterococcus, urine culture from 12/06 grew VRE. --Patient could not complete p.o. antibiotics Vantin, linezolid which was prescribed for 8 more days during prior hospitalization --Continue daptomycin, cefepime to complete 7 day course --Blood cultures Negative --Urology to help with stent removal Hypokalemia Hypomagnesemia Secondary to GI losses Replaced Cough Likely acute bronchitis CXR:No acute cardiopulmonary disease. On Antibiotics as above --Respiratory status stable Transaminitis -Improved COPD Chronic respiratory failure with hypoxia On 2 L supplemental oxygen at baseline No signs of exacerbation on Trelegy DM Type II: Last A1c: 6.1 in October 2021 Hold PO meds ISS, Accu checks, Diabetic diet Dyslipidemia Hold statin while on Dapto CKD IV Creatinine at baseline Monitor renal function Avoid nephrotoxic agents as able H/O colon cancer S/P colectomy DVT Px: Heparin SQ CODE STATUS Full code Disposition lives at home PT/OT evaluation Admission and Anticipated Discharge Date Admission Date: January 07, 2022 Subjective Patient is seen and examined at bedside Nausea, diarrhea slowly improving Had 2 bowel movements this morning Abdominal pain, left flank pain control Offers no other complaints Review of Systems Review of Systems: All systems reviewed & are unremarkable except as noted in Subjective Physical Exam Physical Exam: Physical Exam: Vitals signs as noted above General Appearance:Obese, no apparent distress Head: normocephalic, Atraumatic Eyes: normal inspection, EOMI Neck: supple, Trachea midline Respiratory/Chest: Normal breath sounds, CTA, No accessory muscle use Cardiovascular: S1, S2, No murmur Abdomen/GI:Soft, Mild tender, no guarding or rigidity, bowel sounds present Extremities/Musculoskeletal:normal inspection, no edema Neurologic/Psych:AAOX3, grossly no focal neurological deficits Skin: normal color, warm Results & Data Results & Data ([facility]) Vital Signs (Past 12 Hours) Vital Signs Temp Pulse Pulse Resp BP Pulse Ox 01/13/22 16:40 89 01/13/22 15:42 37.2 C 88 18 103/67 93 01/13/22 11:49 37.4 C 91 H 18 100/70 92 01/13/22 08:40 74 01/13/22 08:03 37.0 C 81 20 112/74 95 Laboratory Results BMP 01/13/22 01/13/22 07:15 09:33 Sodium 138 Potassium TNP 3.8 Chloride 115 H Carbon Dioxide 17 L BUN 23 Creatinine 1.63 H D Glucose 108 H Calcium 8.9
[2022-01-13] MEDS: METOPROLOL SUCC 25MG EXT REL TAB PO SCH (21:45)
[2022-01-13] MEDS: MAGNESIUM OXIDE 400 MG TAB PO SCH (21:46)
[2022-01-13] MEDS: CLOPIDOGREL BISULFATE 75 MG TAB PO SCH (21:46)
[2022-01-14] MEDS: METOPROLOL SUCC 50MG EXT REL TAB PO SCH (08:27)
[2022-01-14] MEDS: OXcarbazepine 150 MG TABLET PO SCH ×2 (08:27→20:49)
[2022-01-14] MEDS: PANTOprazole 40 MG TAB PO SCH ×2 (08:27→20:49)
[2022-01-14] MEDS: ADVANCED PROBIOTIC 1250 MG CAPSULE PO SCH (08:28)
[2022-01-14] MEDS: UMECLIDINIUM/VILANTEROL 62.5/25MCG 7 PUFFS/INHALER INH SCH (08:28)
[2022-01-14] MEDS: TAMSULOSIN HCL 0.4 MG CAP PO SCH (08:28)
[2022-01-14] MEDS: FLUTICASONE FUROATE 100MCG 14 PUFFS/INHALER INH SCH (08:29)
[2022-01-14] MEDS: LIDOCAINE 5% 1 PATCH TD SCH (08:29)
[2022-01-14] MEDS: LACTATED RINGER'S 1,000 ML IV SCH ×2 (08:30→20:29)
[2022-01-14] MEDS: HEPARIN SOD 5,000 UNIT/0.5 ML VIAL SQ SCH ×2 (08:30→20:47)
[2022-01-14] MEDS: ONDANSETRON INJ 2 MG/ML 2 ML VIAL IV PRN ×3 (08:44→20:50)
[2022-01-14] MEDS: MoRPHine SULFATE 2 MG/ML CARP IV PRN (08:46)
[2022-01-14] MEDS: INSULIN ASPART PER UNIT SC SCH ×4 (08:52→20:48)
[2022-01-14] MEDS ORDERED: MoRPHine SULFATE 2 MG/ML CARP IV PRN (09:02)
[2022-01-14 10:14] LABS: Anion Gap 7 (3-11); BUN Creatinine Ratio 12.9 (10-20); Blood Urea Nitrogen 18 mg/dl (6-23); Calcium 9.3 mg/dl (8.5-10.1); Carbon Dioxide 19 mmol/L (21-32); Chloride 113 mmol/L (98-107); Creatinine Clr Calc Pharmacy 37.3 ml/min; Est GFR (African American) 44.6 ml/min; Est GFR (Non-African American) 38.5 ml/min; Glucose 94 mg/dl (70-99(Fasting)); Sodium 139 mmol/L (136-145)
[2022-01-14] MEDS ORDERED: oxyCODONE/ACETAMINOPHEN 5mg/325mg TAB PO PRN ×2 (10:49→19:05)
[2022-01-14] MEDS: LACTOBACILLUS ACIDOPHILUS 1 GM PACK PO SCH ×2 (12:17→17:28)
[2022-01-14] MEDS: PHENAZOPYRIDINE HCL 100 MG TAB PO PRN ×2 (12:20→20:57)
--- NOTE | 2022-01-14 16:20 | Hospitalist Progress Note ---
Date of Service January 14, 2022 Assessment & Plan (1) Nausea & vomiting: Plan: Intractable nausea, vomiting Diarrhea Likely due to recent infection from Complicated UTI, Medications --CT Abd:Stable positioning of the left ureteral stent with unchanged mild left- sided pelvocaliectasis. There is decreased bilateral perinephric stranding compared to the prior study. Nonobstructing bilateral nephrolithiasis. No bowel obstruction or bowel wall thickening. Subtotal colectomy. Moderate sized hiatal hernia. --Stool PCR panel: Negative -- GI consulted: Recommends outpatient EGD --Nausea, vomiting, diarrhea slowly improving PPN discontinued Tolerating oral diet Continue Protonix BID Continue current management Sinus tachycardia Patient asymptomatic Continue metoprolol Recurrent UTI, Partially treated? Complex UTI H/O nephrolithiasis H/O VRE, Klebsiella UTI Based on Records: 10/11/2021-10/24/2021: Patient admitted for management of 5 mm obstructing calculus just above the left vesicoureteral junction. S/p cystoscopy with left retrograde pyelogram aspiration and stent placement by Dr. Adam on 10/12. Hospital course complicated by acute respiratory acidosis requiring intubation. 10/30/2021-11/09/2021: Patient admitted for COVID-19 pneumonia. Required only a small amount of supplemental oxygen. Completed a course of Decadron. 11/18/2021 -12/06/2021 ([place] [facility] [place] Patient admitted for flank pain, UTI, left renal cyst Urine culture from 11/17 grew Klebsiella, urine culture from 11/26 grew Enterococcus, urine culture from 12/06 grew VRE. --Patient could not complete p.o. antibiotics Vantin, linezolid which was prescribed for 8 more days during prior hospitalization --Continue daptomycin, cefepime to complete 7 day course --Blood cultures Negative --Urology to help with stent removal --Needs to follow up with Urology upon discharge for stent removal (Discussed on 01/14/22) Hypokalemia Hypomagnesemia Secondary to GI losses Replaced Cough Likely acute bronchitis CXR:No acute cardiopulmonary disease. On Antibiotics as above --Respiratory status stable Transaminitis -Improved COPD Chronic respiratory failure with hypoxia On 2 L supplemental oxygen at baseline No signs of exacerbation on Trelegy DM Type II: Last A1c: 6.1 in October 2021 Hold PO meds ISS, Accu checks, Diabetic diet Dyslipidemia Hold statin while on Dapto CKD IV Creatinine at baseline Monitor renal function Avoid nephrotoxic agents as able H/O colon cancer S/P colectomy DVT Px: Heparin SQ CODE STATUS Full code Disposition lives at home PT/OT evaluation Admission and Anticipated Discharge Date Admission Date: January 07, 2022 Subjective Patient is seen and examined at bedside Had 1 large loose BM this morning Discussed with Urology Abdominal pain, left flank pain about same as yesterday Offers no other complaints Review of Systems Review of Systems: All systems reviewed & are unremarkable except as noted in Subjective Physical Exam Physical Exam: Physical Exam: Vitals signs as noted above General Appearance:Obese, no apparent distress Head: normocephalic, Atraumatic Eyes: normal inspection, EOMI Neck: supple, Trachea midline Respiratory/Chest: Normal breath sounds, CTA, No accessory muscle use Cardiovascular: S1, S2, No murmur Abdomen/GI:Soft, Mild tender, no guarding or rigidity, bowel sounds present Extremities/Musculoskeletal:normal inspection, no edema Neurologic/Psych:AAOX3, grossly no focal neurological deficits Skin: normal color, warm Results & Data Results & Data ([facility]) Vital Signs (Past 12 Hours) Vital Signs Temp Pulse Resp BP Pulse Ox 01/14/22 15:44 37.0 C 90 19 103/70 95 01/14/22 11:30 37.2 C 80 19 107/68 97 01/14/22 07:20 36.5 C 84 17 105/69 98 Laboratory Results BMP 01/14/22 01/14/22 07:39 09:50 Sodium 139 Potassium TNP 3.8 Chloride 113 H Carbon Dioxide 19 L BUN 18 Creatinine 1.40 H Glucose 94 Calcium 9.3
[2022-01-14] MEDS: CLOPIDOGREL BISULFATE 75 MG TAB PO SCH (20:47)
[2022-01-14] MEDS: MAGNESIUM OXIDE 400 MG TAB PO SCH (20:48)
[2022-01-14] MEDS: METOPROLOL SUCC 25MG EXT REL TAB PO SCH (20:49)
[2022-01-14] MEDS ORDERED: oxyCODONE HCL IR 5 MG TAB (IMMEDIATE RELEASE) PO PRN (22:42)
[2022-01-14] MEDS ORDERED: oxyCODONE HCL IR 5 MG TAB (IMMEDIATE RELEASE) PO STA (22:43)
[2022-01-15] MEDS: LACTATED RINGER'S 1,000 ML IV SCH ×3 (05:58→22:39)
[2022-01-15 06:36] LABS: BUN Creatinine Ratio 10.6 (10-20); Calcium 9.2 mg/dl (8.5-10.1); Creatinine Clr Calc Pharmacy 29.4 ml/min; Est GFR (African American) 33.2 ml/min; Est GFR (Non-African American) 28.6 ml/min; Potassium 3.7 mmol/L (3.5-5.1)
[2022-01-15] MEDS: INSULIN ASPART PER UNIT SC SCH ×4 (07:30→20:42)
[2022-01-15] MEDS: HEPARIN SOD 5,000 UNIT/0.5 ML VIAL SQ SCH ×2 (08:11→20:20)
[2022-01-15] MEDS: METOPROLOL SUCC 50MG EXT REL TAB PO SCH (08:11)
[2022-01-15] MEDS: LIDOCAINE 5% 1 PATCH TD SCH (08:12)
[2022-01-15] MEDS: PANTOprazole 40 MG TAB PO SCH ×2 (08:12→20:19)
[2022-01-15] MEDS: OXcarbazepine 150 MG TABLET PO SCH ×2 (08:14→20:20)
[2022-01-15] MEDS: LACTOBACILLUS ACIDOPHILUS 1 GM PACK PO SCH ×4 (08:14→17:33)
[2022-01-15] MEDS: FLUTICASONE FUROATE 100MCG 14 PUFFS/INHALER INH SCH (08:14)
[2022-01-15] MEDS: TAMSULOSIN HCL 0.4 MG CAP PO SCH (08:15)
[2022-01-15] MEDS: UMECLIDINIUM/VILANTEROL 62.5/25MCG 7 PUFFS/INHALER INH SCH (08:15)
[2022-01-15] MEDS: MAGNESIUM CHLORIDE 64MG DELAYED REL TAB PO SCH ×2 (09:45→20:18)
[2022-01-15] MEDS: oxyCODONE HCL IR 5 MG TAB (IMMEDIATE RELEASE) PO PRN ×2 (13:19→20:29)
[2022-01-15] MEDS: ONDANSETRON INJ 2 MG/ML 2 ML VIAL IV PRN ×2 (13:45→20:29)
--- NOTE | 2022-01-15 17:11 | Hospitalist Progress Note ---
Date of Service January 15, 2022 Assessment & Plan (1) Nausea & vomiting: Plan: Intractable nausea, vomiting Diarrhea Likely due to recent infection from Complicated UTI, Medications --CT Abd:Stable positioning of the left ureteral stent with unchanged mild left- sided pelvocaliectasis. There is decreased bilateral perinephric stranding compared to the prior study. Nonobstructing bilateral nephrolithiasis. No bowel obstruction or bowel wall thickening. Subtotal colectomy. Moderate sized hiatal hernia. --Stool PCR panel: Negative -- GI consulted: Recommends outpatient EGD --Nausea, vomiting, diarrhea slowly improving PPN discontinued Tolerating oral diet Continue Protonix BID Improving Sinus tachycardia Patient asymptomatic Continue metoprolol Recurrent UTI, Partially treated? Complex UTI H/O nephrolithiasis H/O VRE, Klebsiella UTI Based on Records: 10/11/2021-10/24/2021: Patient admitted for management of 5 mm obstructing calculus just above the left vesicoureteral junction. S/p cystoscopy with left retrograde pyelogram aspiration and stent placement by Dr. Adam on 10/12. Hospital course complicated by acute respiratory acidosis requiring intubation. 10/30/2021-11/09/2021: Patient admitted for COVID-19 pneumonia. Required only a small amount of supplemental oxygen. Completed a course of Decadron. 11/18/2021 -12/06/2021 (transferred to [facility] [place], discharge 12/11/2021): Patient admitted for flank pain, UTI, left renal cyst Urine culture from 11/17 grew Klebsiella, urine culture from 11/26 grew Enterococcus, urine culture from 12/06 grew VRE. --Patient could not complete p.o. antibiotics Vantin, linezolid which was prescr ibed for 8 more days during prior hospitalization --Continue daptomycin, cefepime to complete 7 day course --Blood cultures Negative --Urology to help with stent removal --Needs to follow up with Urology upon discharge for stent removal (Discussed on 01/14/22) Hypokalemia Hypomagnesemia Secondary to GI losses Replaced Cough Likely acute bronchitis CXR:No acute cardiopulmonary disease. On Antibiotics as above --Respiratory status improved Transaminitis -Improved COPD Chronic respiratory failure with hypoxia On 2 L supplemental oxygen at baseline No signs of exacerbation on Trelegy DM Type II: Last A1c: 6.1 in October 2021 Hold PO meds ISS, Accu checks, Diabetic diet Dyslipidemia Hold statin while on Dapto CKD IV Creatinine at baseline Monitor renal function Avoid nephrotoxic agents as able H/O colon cancer S/P colectomy DVT Px: Heparin SQ CODE STATUS Full code Disposition lives at home PT/OT evaluation Admission and Anticipated Discharge Date Admission Date: January 07, 2022 Subjective Patient is seen and examined at bedside States feeling better but still has some flank/lower abd pain No Nausea, vomiting, diarrhea today Tolerating diet Denies chest pain, dyspnea, dizziness Review of Systems Review of Systems: All systems reviewed & are unremarkable except as noted in Subjective Physical Exam Physical Exam: Physical Exam: Vitals signs as noted above General Appearance:Obese, no apparent distress Head: normocephalic, Atraumatic Eyes: normal inspection, EOMI Neck: supple, Trachea midline Respiratory/Chest: Normal breath sounds, CTA, No accessory muscle use Cardiovascular: S1, S2, No murmur Abdomen/GI:Soft, Mild tender, no guarding or rigidity, bowel sounds present Extremities/Musculoskeletal:normal inspection, no edema Neurologic/Psych:AAOX3, grossly no focal neurological deficits Skin: normal color, warm Results & Data Results & Data ([facility]) Vital Signs (Past 12 Hours) Vital Signs Temp Pulse Pulse Pulse Resp BP BP 01/15/22 15:57 36.7 C 80 18 103/63 01/15/22 12:45 36.8 C 80 16 125/87 01/15/22 11:27 88 15 140/85 01/15/22 08:00 63 01/15/22 07:29 36.8 C 77 15 125/83 Pulse Ox 01/15/22 15:57 98 01/15/22 12:45 96 01/15/22 11:27 99 01/15/22 08:00 01/15/22 07:29 96 Laboratory Results BMP 01/15/22 05:50 Sodium 137 Potassium 3.7 Chloride 112 H Carbon Dioxide 21 BUN 19 Creatinine 1.79 H D Glucose 105 H Calcium 9.2
[2022-01-15] MEDS: PROMETHAZINE HCL 12.5 MG in SODIUM CHLORIDE 0.9% 50 ML IV PRN (17:29)
[2022-01-15] MEDS: METOPROLOL SUCC 25MG EXT REL TAB PO SCH (20:18)
[2022-01-15] MEDS: PHENAZOPYRIDINE HCL 100 MG TAB PO PRN (20:19)
[2022-01-15] MEDS: CLOPIDOGREL BISULFATE 75 MG TAB PO SCH (20:20)
[2022-01-16 08:27] LABS: BUN Creatinine Ratio 12.3 (10-20); Calcium 9.3 mg/dl (8.5-10.1); Creatinine Clr Calc Pharmacy 38.2 ml/min; Est GFR (African American) 45.4 ml/min; Est GFR (Non-African American) 39.2 ml/min; Magnesium 1.5 mg/dl (1.7-2.4); Potassium 3.8 mmol/L (3.5-5.1)
[2022-01-16] MEDS: ADVANCED PROBIOTIC 1250 MG CAPSULE PO SCH (08:48)
[2022-01-16] MEDS: LACTATED RINGER'S 1,000 ML IV SCH (08:48)
[2022-01-16] MEDS: OXcarbazepine 150 MG TABLET PO SCH ×2 (08:49→21:37)
[2022-01-16] MEDS: METOPROLOL SUCC 50MG EXT REL TAB PO SCH (08:50)
[2022-01-16] MEDS: HEPARIN SOD 5,000 UNIT/0.5 ML VIAL SQ SCH ×2 (08:50→21:29)
[2022-01-16] MEDS: LIDOCAINE 5% 1 PATCH TD SCH (08:50)
[2022-01-16] MEDS: TAMSULOSIN HCL 0.4 MG CAP PO SCH (08:51)
[2022-01-16] MEDS: PANTOprazole 40 MG TAB PO SCH ×2 (08:52→21:37)
[2022-01-16] MEDS: MAGNESIUM CHLORIDE 64MG DELAYED REL TAB PO SCH ×2 (08:53→21:36)
[2022-01-16] MEDS: FLUTICASONE FUROATE 100MCG 14 PUFFS/INHALER INH SCH (08:53)
[2022-01-16] MEDS: UMECLIDINIUM/VILANTEROL 62.5/25MCG 7 PUFFS/INHALER INH SCH ×2 (08:54→08:56)
[2022-01-16] MEDS: INSULIN ASPART PER UNIT SC SCH ×4 (08:59→22:50)
[2022-01-16] MEDS: oxyCODONE HCL IR 5 MG TAB (IMMEDIATE RELEASE) PO PRN ×2 (09:03→21:37)
[2022-01-16] MEDS ORDERED: MAGNESIUM SULFATE / D5W 1 GM/100 ML BAG IV ONE (10:00)
[2022-01-16] MEDS: ONDANSETRON INJ 2 MG/ML 2 ML VIAL IV PRN ×2 (15:19→21:30)
--- NOTE | 2022-01-16 15:34 | Hospitalist Progress Note ---
Date of Service January 16, 2022 Assessment & Plan (1) Nausea & vomiting: Plan: Intractable nausea, vomiting Diarrhea Likely due to recent infection from Complicated UTI, Medications H/O Colectomy --CT Abd:Stable positioning of the left ureteral stent with unchanged mild left- sided pelvocaliectasis. There is decreased bilateral perinephric stranding compared to the prior study. Nonobstructing bilateral nephrolithiasis. No bowel obstruction or bowel wall thickening. Subtotal colectomy. Moderate sized hiatal hernia. --Stool PCR panel: Negative -- GI consulted: Recommends outpatient EGD --Nausea, vomiting, diarrhea continues to improve PPN discontinued Tolerating regular diet Continue Protonix BID Sinus tachycardia Patient asymptomatic Continue metoprolol Recurrent UTI, Partially treated? Complex UTI H/O nephrolithiasis H/O VRE, Klebsiella UTI Based on Records: 10/11/2021-10/24/2021: Patient admitted for management of 5 mm obstructing calculus just above the left vesicoureteral junction. S/p cystoscopy with left retrograde pyelogram aspiration and stent placement by Dr. Adam on 10/12. Hospital course complicated by acute respiratory acidosis requiring intubation. 10/30/2021-11/09/2021: Patient admitted for COVID-19 pneumonia. Required only a small amount of supplemental oxygen. Completed a course of Decadron. 11/18/2021 -12/06/2021 (transfer[place] to [facility] [place] [facility] [place]21[place] Patient admitted for flank pain, UTI, left renal cyst Urine culture from 11/17 grew Klebsiella, urine culture from 11/26 grew Enterococcus, urine culture from 12/06 grew VRE. --Patient could not complete p.o. antibiotics Vantin, linezolid which was prescribed for 8 more days during prior hospitalization --Continue daptomycin, cefepime to complete 7 day course --Blood cultures Negative --Discussed with Urology on 01/14/22 --Needs to follow up with Urology upon discharge for stent removal Hypokalemia Hypomagnesemia Secondary to GI losses Replaced Cough Likely acute bronchitis CXR:No acute cardiopulmonary disease. On Antibiotics as above --Respiratory status improved Transaminitis -Improved COPD Chronic respiratory failure with hypoxia On 2 L supplemental oxygen at baseline No signs of exacerbation on Trelegy DM Type II: Last A1c: 6.1 in October 2021 Hold PO meds ISS, Accu checks, Diabetic diet Dyslipidemia Hold statin while on Dapto CKD IV Creatinine at baseline Monitor renal function Avoid nephrotoxic agents as able H/O colon cancer S/P colectomy DVT Px: Heparin SQ CODE STATUS Full code Disposition lives at home PT/OT evaluation Admission and Anticipated Discharge Date Admission Date: January 07, 2022 Subjective Patient is seen and examined at bedside States feeling better Had transient dizziness earlier but later resolved Had 2 loose BMs today Denies chest pain, dyspnea, dizziness Review of Systems Review of Systems: All systems reviewed & are unremarkable except as noted in Subjective Physical Exam Physical Exam: Physical Exam: Vitals signs as noted above General Appearance:Obese, no apparent distress Head: normocephalic, Atraumatic Eyes: normal inspection, EOMI Neck: supple, Trachea midline Respiratory/Chest: Normal breath sounds, CTA, No accessory muscle use Cardiovascular: S1, S2, No murmur Abdomen/GI:Soft, Mild tender, no guarding or rigidity, bowel sounds present Extremities/Musculoskeletal:normal inspection, no edema Neurologic/Psych:AAOX3, grossly no focal neurological deficits Skin: normal color, warm Results & Data Results & Data ([facility]) Vital Signs (Past 12 Hours) Vital Signs Temp Pulse Resp BP Pulse Ox 01/16/22 07:29 36.6 C 71 18 125/84 93 Laboratory Results [facility] 01/16/22 07:49 Sodium 140 Potassium 3.8 Chloride 112 H Carbon Dioxide 23 BUN 17 Creatinine 1.38 H D Glucose 94 Calcium 9.3
[2022-01-16] MEDS: CLOPIDOGREL BISULFATE 75 MG TAB PO SCH (21:37)
[2022-01-16] MEDS: METOPROLOL SUCC 25MG EXT REL TAB PO SCH (21:38)
[2022-01-16] MEDS: PHENAZOPYRIDINE HCL 100 MG TAB PO PRN (21:40)
[2022-01-17] MEDS: oxyCODONE HCL IR 5 MG TAB (IMMEDIATE RELEASE) PO PRN ×2 (04:54→19:58)
[2022-01-17 06:07] LABS: BUN Creatinine Ratio 11.8 (10-20); Calcium 9.2 mg/dl (8.5-10.1); Creatinine Clr Calc Pharmacy 34.7 ml/min; Est GFR (African American) 40.4 ml/min; Est GFR (Non-African American) 34.9 ml/min; Potassium 3.7 mmol/L (3.5-5.1)
[2022-01-17] MEDS: INSULIN ASPART PER UNIT SC SCH ×4 (09:14→22:22)
[2022-01-17] MEDS: FLUTICASONE FUROATE 100MCG 14 PUFFS/INHALER INH SCH (09:22)
[2022-01-17] MEDS: LIDOCAINE 5% 1 PATCH TD SCH (09:22)
[2022-01-17] MEDS: ADVANCED PROBIOTIC 1250 MG CAPSULE PO SCH (09:22)
[2022-01-17] MEDS: MAGNESIUM CHLORIDE 64MG DELAYED REL TAB PO SCH ×2 (09:23→20:01)
[2022-01-17] MEDS: METOPROLOL SUCC 50MG EXT REL TAB PO SCH (09:24)
[2022-01-17] MEDS: UMECLIDINIUM/VILANTEROL 62.5/25MCG 7 PUFFS/INHALER INH SCH (09:24)
[2022-01-17] MEDS: OXcarbazepine 150 MG TABLET PO SCH ×2 (09:51→20:01)
[2022-01-17] MEDS: HEPARIN SOD 5,000 UNIT/0.5 ML VIAL SQ SCH ×2 (09:51→20:09)
[2022-01-17] MEDS: PANTOprazole 40 MG TAB PO SCH ×2 (09:51→20:02)
[2022-01-17] MEDS: TAMSULOSIN HCL 0.4 MG CAP PO SCH (09:51)
[2022-01-17] MEDS ORDERED: LOPERAMIDE HCL 2 MG CAP PO PRN ×2 (13:22→13:23)
--- NOTE | 2022-01-17 16:21 | Hospitalist Progress Note ---
Date of Service January 17, 2022 Assessment & Plan (1) Nausea & vomiting: Plan: Intractable nausea, vomiting Diarrhea Likely due to recent infection from Complicated UTI, Medications H/O Colectomy --CT Abd:Stable positioning of the left ureteral stent with unchanged mild left- sided pelvocaliectasis. There is decreased bilateral perinephric stranding compared to the prior study. Nonobstructing bilateral nephrolithiasis. No bowel obstruction or bowel wall thickening. Subtotal colectomy. Moderate sized hiatal hernia. --Stool PCR panel: Negative -- GI consulted: Recommends outpatient EGD --Nausea, vomiting, diarrhea continues to improve PPN discontinued Tolerating regular diet Continue Protonix BID Imodium PRN Likely discharge home in next 24-48 hours Sinus tachycardia Patient asymptomatic Continue metoprolol Recurrent UTI, Partially treated? Complex UTI H/O nephrolithiasis H/O VRE, Klebsiella UTI Based on Records: 10/11/2021-10/24/2021: Patient admitted for management of 5 mm obstructing calculus just above the left vesicoureteral junction. S/p cystoscopy with left retrograde pyelogram aspiration and stent placement by Dr. Adam on 10/12. Hospital course complicated by acute respiratory acidosis requiring intubation. 10/30/2021-11/09/2021: Patient admitted for COVID-19 pneumonia. Required only a small amount of supplemental oxygen. Completed a course of Decadron. 11/18/2021 -12/06/2021 ([place] [facility] [place] Patient admitted for flank pain, UTI, left renal cyst Urine culture from 11/17 grew Klebsiella, urine culture from 11/26 grew Enterococcus, urine culture from 12/06 grew VRE. --Patient could not complete p.o. antibiotics Vantin, linezolid which was prescribed for 8 more days during prior hospitalization --Continue daptomycin, cefepime to complete 7 day course --Blood cultures Negative --Discussed with Urology on 01/14/22 --Needs to follow up with Urology upon discharge for stent removal Hypokalemia Hypomagnesemia Secondary to GI losses Replaced Cough Likely acute bronchitis CXR:No acute cardiopulmonary disease. On Antibiotics as above --Respiratory status improved Transaminitis -Improved COPD Chronic respiratory failure with hypoxia On 2 L supplemental oxygen at baseline No signs of exacerbation on Trelegy DM Type II: Last A1c: 6.1 in October 2021 Hold PO meds ISS, Accu checks, Diabetic diet Dyslipidemia Hold statin while on Dapto CKD IV Creatinine at baseline Monitor renal function Avoid nephrotoxic agents as able H/O colon cancer S/P colectomy DVT Px: Heparin SQ CODE STATUS Full code Disposition lives at home PT/OT evaluation: Recommends Return Home Admission and Anticipated Discharge Date Admission Date: January 07, 2022 Subjective Patient is seen and examined at bedside No new complaints Dizziness resolved States having diarrhea which is chronic Denies chest pain, dyspnea, dizziness Review of Systems Review of Systems: All systems reviewed & are unremarkable except as noted in Subjective Physical Exam Physical Exam: Physical Exam: Vitals signs as noted above General Appearance:Obese, no apparent distress Head: normocephalic, Atraumatic Eyes: normal inspection, EOMI Neck: supple, Trachea midline Respiratory/Chest: Normal breath sounds, CTA, No accessory muscle use Cardiovascular: S1, S2, No murmur Abdomen/GI:Soft, Mild tender, no guarding or rigidity, bowel sounds present Extremities/Musculoskeletal:normal inspection, no edema Neurologic/Psych:AAOX3, grossly no focal neurological deficits Skin: normal color, warm Results & Data Results & Data ([facility]) Vital Signs (Past 12 Hours) Vital Signs Temp Pulse Resp BP Pulse Ox 01/17/22 15:44 36.6 C 81 18 107/70 92 01/17/22 07:55 36.7 C 84 18 105/69 92 Laboratory Results [facility] 01/17/22 05:23 Sodium 139 Potassium 3.7 Chloride 111 H Carbon Dioxide 23 BUN 18 Creatinine 1.52 H Glucose 111 H Calcium 9.2
[2022-01-17] MEDS: ONDANSETRON INJ 2 MG/ML 2 ML VIAL IV PRN (19:58)
[2022-01-17] MEDS: CLOPIDOGREL BISULFATE 75 MG TAB PO SCH (20:01)
[2022-01-17] MEDS: PHENAZOPYRIDINE HCL 100 MG TAB PO PRN (20:01)
[2022-01-17] MEDS: METOPROLOL SUCC 25MG EXT REL TAB PO SCH (20:07)
[2022-01-18 06:36] LABS: Calcium 9.2 mg/dl (8.5-10.1); Creatinine Clr Calc Pharmacy 35.1 ml/min; Est GFR (African American) 41.1 ml/min; Est GFR (Non-African American) 35.4 ml/min; Potassium 3.6 mmol/L (3.5-5.1)
[2022-01-18] MEDS: OXcarbazepine 150 MG TABLET PO SCH (08:03)
[2022-01-18] MEDS: ADVANCED PROBIOTIC 1250 MG CAPSULE PO SCH (08:03)
[2022-01-18] MEDS: TAMSULOSIN HCL 0.4 MG CAP PO SCH (08:04)
[2022-01-18] MEDS: PANTOprazole 40 MG TAB PO SCH (08:04)
[2022-01-18] MEDS: METOPROLOL SUCC 50MG EXT REL TAB PO SCH (08:04)
[2022-01-18] MEDS: MAGNESIUM CHLORIDE 64MG DELAYED REL TAB PO SCH (08:04)
[2022-01-18] MEDS: FLUTICASONE FUROATE 100MCG 14 PUFFS/INHALER INH SCH (08:05)
[2022-01-18] MEDS: UMECLIDINIUM/VILANTEROL 62.5/25MCG 7 PUFFS/INHALER INH SCH (08:05)
[2022-01-18] MEDS: LIDOCAINE 5% 1 PATCH TD SCH (08:05)
[2022-01-18] MEDS: HEPARIN SOD 5,000 UNIT/0.5 ML VIAL SQ SCH (08:05)
[2022-01-18] MEDS: INSULIN ASPART PER UNIT SC SCH (09:13)
[2022-01-18] MEDS: oxyCODONE HCL IR 5 MG TAB (IMMEDIATE RELEASE) PO PRN (10:38)
[2022-01-18] MEDS: PHENAZOPYRIDINE HCL 100 MG TAB PO PRN (10:39)
[2022-01-18] MEDS: ONDANSETRON INJ 2 MG/ML 2 ML VIAL IV PRN (10:41)
[2022-01-18] MEDS ORDERED: FLUCONAZOLE 50 MG TAB PO ONE (11:05)
--- NOTE | 2022-01-18 11:09 | Hospitalist Progress Note ---
Date of Service January 18, 2022 Assessment & Plan (1) Nausea & vomiting: Plan: Intractable nausea, vomiting Diarrhea Likely due to recent infection from Complicated UTI, Medications H/O Colectomy --CT Abd:Stable positioning of the left ureteral stent with unchanged mild left- sided pelvocaliectasis. There is decreased bilateral perinephric stranding compared to the prior study. Nonobstructing bilateral nephrolithiasis. No bowel obstruction or bowel wall thickening. Subtotal colectomy. Moderate sized hiatal hernia. --Stool PCR panel: Negative -- GI consulted: Recommends outpatient EGD --Nausea, vomiting, diarrhea continues to improve PPN discontinued Tolerating regular diet Continue Protonix BID Imodium PRN Likely discharge home today Sinus tachycardia Patient asymptomatic Continue metoprolol Recurrent UTI, Partially treated? Complex UTI H/O nephrolithiasis H/O VRE, Klebsiella UTI Based on Records: 10/11/2021-10/24/2021: Patient admitted for management of 5 mm obstructing calculus just above the left vesicoureteral junction. S/p cystoscopy with left retrograde pyelogram aspiration and stent placement by Dr. Adam on 10/12. Hospital course complicated by acute respiratory acidosis requiring intubation. 10/30/2021-11/09/2021: Patient admitted for COVID-19 pneumonia. Required only a small amount of supplemental oxygen. Completed a course of Decadron. 11/18/2021 -12/06/2021 (transferred to [facility] [place], discharge 12/11/2021): Patient admitted for flank pain, UTI, left renal cyst Urine culture from 11/17 grew Klebsiella, urine culture from 11/26 grew Enterococcus, urine culture from 12/06 grew VRE. --Patient could not complete p.o. antibiotics Vantin, linezolid which was prescribed for 8 more days during prior hospitalization --Continue daptomycin, cefepime to complete 7 day course --Blood cultures Negative --Discussed with Urology on 01/14/22, 01/18/22 --Urology plans to remove stent today as outpatient Hypokalemia Hypomagnesemia Secondary to GI losses Replaced Cough Likely acute bronchitis CXR:No acute cardiopulmonary disease. On Antibiotics as above --Respiratory status improved Transaminitis -Improved COPD Chronic respiratory failure with hypoxia On 2 L supplemental oxygen at baseline No signs of exacerbation on Trelegy DM Type II: Last A1c: 6.1 in October 2021 Hold PO meds ISS, Accu checks, Diabetic diet Dyslipidemia Hold statin while on Dapto CKD IV Creatinine at baseline Monitor renal function Avoid nephrotoxic agents as able H/O colon cancer S/P colectomy DVT Px: Heparin SQ CODE STATUS Full code Disposition lives at home PT/OT evaluation: Recommends Return Home Admission and Anticipated Discharge Date Admission Date: January 07, 2022 Subjective Patient is seen and examined at bedside Doing well today Discussed with Urology Denies nausea, vomiting, diarrhea today Also denies chest pain, dyspnea, dizziness Plan to discharge home today Review of Systems Review of Systems: All systems reviewed & are unremarkable except as noted in Subjective Physical Exam Physical Exam: Physical Exam: Vitals signs as noted above General Appearance:Obese, no apparent distress Head: normocephalic, Atraumatic Eyes: normal inspection, EOMI Neck: supple, Trachea midline Respiratory/Chest: Normal breath sounds, CTA, No accessory muscle use Cardiovascular: S1, S2, No murmur Abdomen/GI:Soft, Mild tender, no guarding or rigidity, bowel sounds present Extremities/Musculoskeletal:normal inspection, no edema Neurologic/Psych:AAOX3, grossly no focal neurological deficits Skin: normal color, warm Results & Data Results & Data ([facility]) Vital Signs (Past 12 Hours) Vital Signs Temp Pulse Resp BP Pulse Ox 01/18/22 07:56 36.7 C 77 16 107/68 92 Laboratory Results [facility] 01/18/22 05:51 Sodium 141 Potassium 3.6 Chloride 112 H Carbon Dioxide 23 BUN 21 Creatinine 1.50 H Glucose 98 Calcium 9.2
--- NOTE | 2022-01-18 13:00 | Discharge Summary ---
Date of Service January 18, 2022 Admission HPI Per Admitting Provider Patient is a 66-year-old female with history of COPD on chronic supplemental oxygen 2 L at baseline, obstructive sleep apnea, diabetes mellitus, dyslipidemia, CKD stage IV, bipolar disorder, H/O colon cancer S/P colectomy, Bilateral nephrolithiasis and other medical problems presents with history of intractable nausea, vomiting associated with diarrhea since 1 week duration. Patient states having multiple episodes of nausea, vomiting and diarrhea but denies any blood in vomitus or stool. Patient was unable to eat secondary to nausea and has generalized weakness. She is recently discharged from [facility] after being treated for recurrent UTI, acute kidney injury. Patient has history of VRE, Klebsiella UTI. Patient received IV daptomycin, Rocephin for 7 days and was discharged to complete another 8-day course of linezolid and Vantin. Patient states that she could not take the antibiotics as prescribed secondary to intractable nausea, vomiting. She also states having left flank pain and bladder pain which has been ongoing since last discharge. She describes pain as sharp, 8/10, nonradiating and is associated with dysuria. She denies any hematuria. Also reports having cough with whitish expectoration since past 2 days. Denies any history of chest pain, SOB, dizziness, wheezing, hemoptysis, fever, chills, headache, change in vision, blood in stools. Admission Exam Per Admitting Provider Physical Exam: Vitals signs as noted above General Appearance:Obese, no apparent distress Head: normocephalic, Atraumatic Eyes: normal inspection, EOMI Neck: supple, Trachea midline Respiratory/Chest: Normal breath sounds, CTA, No accessory muscle use Cardiovascular: S1, S2, No murmur, +Tachycardia Abdomen/GI:Soft, Left flank tender, Mild generalized abd tender, no guarding or rigidity, bowel sounds present Extremities/Musculoskeletal:normal inspection, no edema Neurologic/Psych:AAOX3, grossly no focal neurological deficits Skin: normal color, warm Principal Diagnosis Intractable nausea, vomiting, Diarrhea Recurrent UTI Hypokalemia Hypomagnesemia Acute bronchitis Discharge Data Allergies Allergy/AdvReac Type Severity Reaction Status Date / Time fentanyl Allergy Severe itching/felt Verified 01/07/22 14:55 like throat closing salicylates Allergy Severe SHORTNESS Verified 01/07/22 14:55 OF BREATH Iodinated Contrast Media Allergy Intermediate EYES Verified 01/07/22 14:55 SWELLING/Hives amoxicillin [From Augmentin] Allergy Mild Rash Verified 01/07/22 14:55 aspirin Allergy Mild FACIAL Verified 01/07/22 14:55 SWELLING clavulanic acid Allergy Mild Rash Verified 01/07/22 14:55 [From Augmentin] hydromorphone Allergy Mild RASH/ITCHIN Verified 01/07/22 14:55 G meperidine AdvReac Intermediate ITCH Verified 01/07/22 14:55 morphine AdvReac Intermediate ITCH Verified 01/07/22 14:55 tramadol AdvReac Mild itch Verified 01/07/22 14:55 Consultations 01/07/22 15:15 ED Decision to Admit Stat 01/08/22 11:10 Consult Gastroenterology Routine Ordered Studies 01/07/22 16:06 CT abd pelvis wo con Stat Hospital Course (1) Nausea & vomiting: Intractable nausea, vomiting Diarrhea Likely due to recent infection from Complicated UTI, Medications H/O Colectomy --CT Abd:Stable positioning of the left ureteral stent with unchanged mild left- sided pelvocaliectasis. There is decreased bilateral perinephric stranding compared to the prior study. Nonobstructing bilateral nephrolithiasis. No bowel obstruction or bowel wall thickening. Subtotal colectomy. Moderate sized hiatal hernia. --Stool PCR panel: Negative -- GI consulted: Recommends outpatient EGD --Nausea, vomiting, diarrhea continues to improve PPN discontinued Tolerating regular diet Continue Protonix BID Imodium PRN Likely discharge home today Sinus tachycardia Patient asymptomatic Continue metoprolol Recurrent UTI, Partially treated? Complex UTI H/O nephrolithiasis H/O VRE, Klebsiella UTI Based on Records: 10/11/2021-10/24/2021: Patient admitted for management of 5 mm obstructing calculus just above the left vesicoureteral junction. S/p cystoscopy with left retrograde pyelogram aspiration and stent placement by Dr. Adam on 10/12. Hospital course complicated by acute respiratory acidosis requiring intubation. 10/30/2021-11/09/2021: Patient admitted for COVID-19 pneumonia. Required only a small amount of supplemental oxygen. Completed a course of Decadron. 11/18/2021 -12/06/2021 (transferred to [facility], discharge 12/11/2021): Patient admitted for flank pain, UTI, left renal cyst Urine culture from 11/17 grew Klebsiella, urine culture from 11/26 grew Enterococcus, urine culture from 12/06 grew VRE. --Patient could not complete p.o. antibiotics Vantin, linezolid which was prescribed for 8 more days during prior hospitalization --Continue daptomycin, cefepime to complete 7 day course --Blood cultures Negative --Discussed with Urology on 01/14/22, 01/18/22 --Urology plans to remove stent today as outpatient Hypokalemia Hypomagnesemia Secondary to GI losses Replaced Cough Likely acute bronchitis CXR:No acute cardiopulmonary disease. On Antibiotics as above --Respiratory status improved Transaminitis -Improved COPD Chronic respiratory failure with hypoxia On 2 L supplemental oxygen at baseline No signs of exacerbation on Trelegy DM Type II: Last A1c: 6.1 in October 2021 Hold PO meds ISS, Accu checks, Diabetic diet Dyslipidemia Hold statin while on Dapto CKD IV Creatinine at baseline Monitor renal function Avoid nephrotoxic agents as able H/O colon cancer S/P colectomy DVT Px: Heparin SQ CODE STATUS Full code Disposition lives at home PT/OT evaluation: Recommends Return Home Total Time Total Time Spent Total Time Spent (In Minutes): 44 minutes Discharge Plan Discharge Items Patient Disposition: Home - Home Health Services Reason For Visit: INTRACTABLE NAUSEA, VOMITING Discharge Diagnosis: Intractable nausea, vomiting, Diarrhea Recurrent UTI Hypokalemia Hypomagnesemia Acute bronchitis Activity: Per Instructions section Exercise/Sports: Gradually increase as tolerated Non-emergency contact: Primary Care Provider and Urologist Call non-emergency contact if: you have any medication questions, your symptoms worsen, your pain is concerning for you and you have a fever Follow-up/Referrals: Maribel Orta PA-C [Other] (Date & Time 01/20/2022 1:00 PM Provider Maribel Orta PA-C Department Nephrology [facility] ) Lo Chand DO [Primary Care Provider] - (Date & Time 01/21/2022 2:20 PM Provider Richar Neville MD Department Family Medicine [facility] ) Diet: Carb Consistent or DM2 Diet Texture: Easy to Chew Addtl Attending Provider Instructions: Follow-up with your primary care physician on 01/21/2022 2:20 PM Follow-up with your urologist Dr. Adam for ureteral stent removal today as outpatient Seek immediate medical attention if your symptoms reoccur or worsen Please take all medications as instructed on discharge list below. Please call if you have any questions or problems. You can reach a [facility] hospitalist on duty at [facility] 24 hours a day by calling [phone] Pending Studies at Discharge: No Stand-Alone Forms: My [facility], Smoking Cessation Medications and DC Order Prescriptions: New Mag 64 64 mg Tablet,Delayed Release (Dr/Ec) 64 mg PO BID Qty: 60 RF: 0 Continued ondansetron 4 mg tablet,disintegrating 4 mg PO Q8H PRN (Reason: nausea and vomiting) Qty: 10 RF: 0 metoprolol succinate 50 mg tablet extended release 24 hr 50 mg PO QAM RF: 0 Trelegy Ellipta 100-62.5-25 mcg blister with device 1 inh inhalation DAILY PRN (Reason: Shortness Of Breath) RF: 0 metoprolol succinate 25 mg tablet extended release 24 hr 25 mg PO PM RF: 0 albuterol sulfate 90 mcg/actuation Hfa Aerosol Inhaler 2 puff INHALATION Q4H PRN (Reason: Shortness Of Breath) RF: 0 atorvastatin [Lipitor] 40 mg Tablet 40 mg PO QPM RF: 0 clopidogrel [Plavix] 75 mg Tablet 75 mg PO QPM RF: 0 pantoprazole [Protonix] 40 mg Tablet,Delayed Release (Dr/Ec) 40 mg PO BID RF: 0 riboflavin (vitamin B2) 400 mg Tablet 400 mg PO QPM RF: 0 cholecalciferol (vitamin D3) [Vitamin D3] 2,000 unit Capsule 2,000 unit PO QAM RF: 0 acetaminophen [Tylenol Extra Strength] 500 mg Tablet 1,000 mg PO AMHS RF: 0 tamsulosin 0.4 mg capsule 0.4 mg PO DAILY RF: 0 oxcarbazepine 300 mg tablet 300 mg PO BID RF: 0 lidocaine 5 % Adhesive Patch,Medicated 1 patch transdermal QAM 14 Days Qty: 14 RF: 0 oxybutynin chloride 5 mg Tablet 5 mg PO QAM 30 Days Qty: 30 RF: 0 glipizide [Glucotrol XL] 2.5 mg tablet extended release 24hr 2.5 mg PO PM RF: 0 phenazopyridine [Pyridium] 100 mg Tablet 100 mg PO TID PRN (Reason: bladder spasms) Qty: 30 RF: 0 loperamide 2 mg Capsule 2 mg PO TID PRN (Reason: diarrhea) Qty: 30 RF: 0 Discontinued magnesium oxide 400 mg magnesium Tablet 400 mg PO HS RF: 0 linezolid 600 mg tablet 600 mg PO BID Qty: 16 RF: 0 cefpodoxime 200 mg tablet 200 mg PO BID Qty: 16 RF: 0 Discharge Orders: Discharge Order (Routine); Ordered 01/18/22 Ordered By: Danny Turner Admission Data Admit Date/Time: 01/07/22 15:58 Attending Provider: Danny Turner Admit Provider: Danny Turner Primary Care Provider: Lo Chand Other Providers: [facility],Home Healthcare ; Danny Turner ; Betsy Rey Other Interventions: Discharge Summary Assessment (RN) Last Done: 01/18/22 11:17
== END 2022-01-18 12:15 | disposition home health service (06) | DRG 690 ==
LOC: ED 12:44 → 2S 15:58 → SUATTDRO 15:58 → 2S 17:03 → 3W 01-15 12:18

== ENCOUNTER 2022-11-02 10:47 | Inpatient (IN) ==
[2022-11-02] MEDS ORDERED: ONDANSETRON INJ 2 MG/ML 2 ML VIAL IV STA (11:22)
[2022-11-02] MEDS ORDERED: SODIUM CHLORIDE 0.9% 1000ML 1,000 ML IV ONE (11:22)
[2022-11-02] MEDS ORDERED: MoRPHine SULFATE 4 MG/ML 1 ML CARP\\VIAL IV STA (11:24)
[2022-11-02 11:39] LABS: Basophils # (auto) 0.05 K/uL (0-0.2); Basophils % (auto) 0.8 %; Eosinophils # (auto) 0.05 K/uL (0-0.50); Eosinophils % (auto) 0.8 %; Hematocrit (blood only) 36.1 % (34.1-44.9); Hemoglobin 11.3 g/dl (12.0-16.0); Immature Granulocytes # (auto) 0.03 K/uL (0.00-0.02); Immature Granulocytes % (auto) 0.5 %; Lymphocytes # (auto) 1.35 K/uL (1.2-3.4); Lymphocytes % (auto) 20.5 %; Mean Corpuscular Hemoglobin 29.9 pg (25.0-34.0); Mean Corpuscular Hgb Conc 31.3 g/dL (32.0-36.0); Mean Corpuscular Volume 95.5 fL (80.0-100.0); Mean Platelet Volume 10.9 fL (9.4-12.3); Monocytes % (auto) 10.6 %; Neutrophils # (auto) 4.42 K/uL (1.4-6.5); Neutrophils % (auto) 66.8 %; Platelet Count 194 K/uL (130-400); RDW Standard Deviation 45.4 fL (36.4-46.3); Red Blood Count 3.78 M/uL (3.93-5.22)
--- NOTE | 2022-11-02 11:44 | Emergency Department Note ---
Impression & Plan Acute pyelonephritis, PERRI (acute kidney injury), Acute left flank pain ED Provider Note NAME: NAYELI GUERRERO AGE: 67 SEX: F : 1955 ARRIVES VIA: Ambulance INFORMANT: Patient, ED PROVIDER(S): Kodak Velázquez DO CHIEF COMPLAINT: Nausea HPI: The patient is a 67-year-old female who presented to the emergency department for nausea and flank pain. The patient has a history of a ruptured renal cyst in the past. She is also had urosepsis. She noticed low-grade fever as well as nausea. She also noticed abdominal pain. She is been feeling very weak and having difficulty ambulating. The patient states that she lives at home. She called 911 this morning because symptoms became worsened. She denies having any vomiting. She denies having any GI bleeding. She currently is not taking her anticoagulation because she is scheduled for a possible biopsy of her liver. She has a history of chronic kidney disease. The patient also has a history of COPD. ROS: See above HPI for pertinent positives & negatives. A total of 10 systems reviewed and were otherwise negative. PAST MEDICAL HISTORY: See Below PAST SURGICAL HISTORY: See Below FAMILY HISTORY: See Below SOCIAL HISTORY: See Below HOME MEDICATIONS: See Below ALLERGIES: See Below VITALS: See Below PHYSICAL EXAMINATION: GENERAL: The patient is awake and alert. She is somewhat anxious appearing. EYES: The conjunctivae are clear. The pupils are round and reactive. EARS, NOSE, MOUTH AND THROAT: The nose is without any evidence of any deformity. NECK: The neck is nontender and supple. RESPIRATORY: Normal respiratory effort is noted there is no evidence of wheezing rhonchi or rales CARDIOVASCULAR: Regular rate and rhythm noted there no murmurs rubs or gallops normal S1 normal S2. GASTROINTESTINAL: Abdomen is soft and mildly distended. There is left-sided tenderness to palpation. BACK: There is left CVA tenderness to percussion. MUSCULOSKELETAL/EXTREMITIES: There is no evidence of gross deformity full range of motion is noted in the hips and shoulders. SKIN: Trace pedal edema was noted bilaterally. NEUROLOGIC: Patient is awake alert and oriented x3. MEDICAL DECISION MAKING: The patient is a 67-year-old female who presented to the emergency department for an evaluation of flank pain. The patient has a history of complicated urinary tract infection with multi resistant bacterial strains. The patient was treated with IV fluids and IV pain medication in the emergency department. She was reevaluated multiple times. I discussed the patient's laboratory and radiographic studies with her. She was treated with IV antibiotics for presumed urinary tract infection. I discussed her condition with the on-call [facility] hospitalist group. I do not feel that she would do well as an outpatient. They have agreed to evaluate the patient in the emergency department. The patient w as agreeable to this plan. Triage Nursing notes reviewed. Prior medical records reviewed Vital Signs: reviewed and remarkable for no significant abnormalities Differential diagnosis: Renal colic, UTI, appendicitis, diverticulitis, mesenteric ischemia, aortic pathology, infections, inflammatory bowel disease, PUD, biliary pathology, as well as other pathologies. ER treatment provided: See below Diagnostics interpreted by me: ECG: EKG was obtained in the emergency department. My interpretation is sinus rhythm at 87 bpm. Poor baseline was noted. LVH was suggested by voltage criteria. This was compared to a tracing from January 11, 2022. No changes were noted. Cardiac Monitoring: An order was placed for continuous cardiac monitoring. The monitor shows a rate of 93 bpm with sinus rhythm. Laboratory studies: As stated above and show below. Imaging studies: See below. Radiographic imaging was reviewed by myself Consultation(s): I discussed this case with Dr. Marino who is on for the [facility] alist group. Past Med/Surg History Medical History Anxiety Asthma well controlled per pt, rare inh use Bipolar disorder Chronic back pain Chronic headaches Chronic renal insufficiency stage 3, following with [facility] nephrology ([place]) Chronic respiratory failure with hypoxia CKD (chronic kidney disease), stage III COPD (chronic obstructive pulmonary disease) Deep vein thrombosis LLE - COULD NOT RECALL DATE - REPORTS SHE WAS TREATED AT [facility] W/ BLOOD THINNERS Depression DM type 2 (diabetes mellitus, type 2) GERD (gastroesophageal reflux disease) History of colon cancer 2012 S/P BOWEL RESECTION. History of COVID-27 Sep 2020 HTN (hypertension) Hyperlipidemia Kidney stone Myocardial Infarction 06/2016--> [facility] -- CARDIAC CATH --> normal coronary anatomy without coronary obstruction but Plavix started per [facility] discharge summary On anticoagulant therapy plavix daily CALI (obstructive sleep apnea) Poor historian Renal colic s/p L ureteral stent 10/2021 followed by lithotripsy, stone extraction and stent exchange 11/2021 Renal cyst 7 cm thick walled as of early 2021 Takotsubo cardiomyopathy History of in 2016 with return to normal LV function Surgical History H/O hand surgery RIGHT History of appendectomy History of bilateral cataract extraction History of blepharoplasty History of cardiac cath 03/2018 - ME - DENIES STENTS/ANGIOPLASTY - [facility] - FOLLOWS W/ DR. TORRES History of closure of ileostomy History of colectomy due to colon cancer History of colonoscopy History of cystoscopy History of esophageal dilatation History of esophagogastroduodenoscopy (EGD) History of hysterectomy History of kidney surgery at age 9 yrs "something was wrong and had to fix it" History of lithotripsy History of tooth extraction History of total abdominal hysterectomy and bilateral salpingo-oophorectomy Hx of cholecystectomy Family History Other Breast cancer Social History Smoking Status: Never smoker Second Hand Exposure: No; Hx Alcohol Use: No Hx Substance Use: No Preferred Language: Syriac Communication Ability: Effective Visual Impairment: No Limitations Hearing Ability: Normal Remedial [place] Required: No Beliefs That Will Affect Care: None marital status: Current Living Situation: Alone Current Living Situation Comment: [place]ers in [facility] [address] [facility] Feels Safe at Home: Yes Assistive Devices: None Allergies Allergies Allergy/AdvReac Type Severity Reaction Status Date / Time fentanyl Allergy Severe itching/felt Verified 01/07/22 14:55 like throat closing salicylates Allergy Severe SHORTNESS Verified 01/07/22 14:55 OF BREATH Iodinated Contrast Media Allergy Intermediate EYES Verified 01/07/22 14:55 SWELLING/Hives amoxicillin [From Augmentin] Allergy Mild Rash Verified 01/07/22 14:55 aspirin Allergy Mild FACIAL Verified 01/07/22 14:55 SWELLING clavulanic acid Allergy Mild Rash Verified 01/07/22 14:55 [From Augmentin] hydromorphone Allergy Mild RASH/ITCHIN Verified 01/07/22 14:55 G meperidine AdvReac Intermediate ITCH Verified 01/07/22 14:55 morphine AdvReac Intermediate ITCH Verified 01/07/22 14:55 tramadol AdvReac Mild itch Verified 01/07/22 14:55 Home Meds Home Medications Medication Instructions Recorded Confirmed atorvastatin 40 mg tablet (Lipitor) 40 mg PO QPM 07/12/18 01/07/22 clopidogrel 75 mg tablet (Plavix) 75 mg PO QPM 07/12/18 01/07/22 pantoprazole 40 mg tablet,delayed 40 mg PO BID 07/12/18 01/07/22 release (Protonix) riboflavin (vitamin B2) 400 mg 400 mg PO QPM 07/12/18 01/07/22 tablet cholecalciferol (vitamin D3) 50 2,000 unit PO QAM 05/16/19 01/07/22 mcg (2,000 unit) capsule (Vitamin D3) albuterol sulfate 90 mcg/actuation 2 puff inhalation Q4H PRN 07/21/19 01/07/22 aerosol inhaler Shortness Of Breath fluticasone fur. 100 mcg-umeclid 1 inh inhalation DAILY PRN 12/11/20 01/07/22 62.5 mcg-vilant 25 mcg Shortness Of Breath inhalat.powder (Trelegy Ellipta) metoprolol succinate 25 mg 25 mg PO PM 12/11/20 01/07/22 tablet,extended release 24 hr metoprolol succinate 50 mg 50 mg PO QAM 12/11/20 01/07/22 tablet,extended release 24 hr glipizide 2.5 mg tablet, extended 2.5 mg PO PM 04/29/21 01/07/22 release 24 hr (Glucotrol XL) acetaminophen 500 mg tablet 1,000 mg PO AMHS 10/11/21 01/07/22 (Tylenol Extra Strength) oxcarbazepine 300 mg tablet 300 mg PO BID 12/22/21 01/07/22 tamsulosin 0.4 mg capsule 0.4 mg PO DAILY 12/22/21 01/07/22 Previous Rx's Medication Instructions Recorded ondansetron 4 mg disintegrating 4 mg PO Q8H PRN nausea and 06/02/21 tablet vomiting #10 tabs phenazopyridine 100 mg tablet 100 mg PO TID PRN bladder spasms 11/09/21 (Pyridium) #30 tabs fluconazole 100 mg tablet 100 mg PO DAILY #3 tabs 01/18/22 (Diflucan) loperamide 2 mg capsule 2 mg PO TID PRN diarrhea #30 caps 01/18/22 magnesium chloride 64 mg 64 mg PO BID #60 tabs 01/18/22 (magnesium chloride) tablet,delayed release (Mag 64) Results & Data (ED) Vital Signs Vital Signs - 24 hr 11/02/22 10:56 11/02/22 11:29 Temperature 37.7 C H 37.7 C H Temperature Source Oral Oral Pulse Rate 103 H Pulse Rate [Right Brachial] 93 H Pulse Rhythm Regular Pulse Rhythm [Right Brachial] Regular Pulse Strength Normal Respiratory Rate 19 19 Respiratory Effort / Characteristics Non-Labored Spontaneous Non-Labored Spontaneous Respiratory Depth Normal Normal Respiratory Pattern Regular Blood Pressure 128/95 Blood Pressure [Right Arm] 128/85 Blood Pressure Mean 106 Blood Pressure Mean [Right Arm] 99 Blood Pressure Position Lying Blood Pressure Position [Right Arm] Lying Pulse Oximetry 94 95 Oxygen Delivery Method Nasal Cannula Nasal Cannula Oxygen Flow Rate 2 2 Sepsis Recent Fever Within 48 Hours Yes Sepsis New/Unexplained Change in Mental Status No Sepsis Action Taken by Nursing No Action Required Home Medications Current Medication List: was personally reviewed by me Laboratory Data Attestation: I reviewed the patient's lab results. 11/02/22 10:55 11/02/22 10:55 Lab Results 11/02/22 11/02/22 11/02/22 Range/Units 10:55 10:55 10:55 WBC 6.60 (4.8-10.8) K/ul RBC 3.78 L (3.93-5.22) M/uL Hgb 11.3 L (12.0-16.0) g/dl Hct 36.1 (34.1-44.9) % MCV 95.5 (80.0-100.0) fL MCH 29.9 (25.0-34.0) pg MCHC 31.3 L (32.0-36.0) g/dL RDW Std Deviation 45.4 (36.4-46.3) fL RDW Coeff of Teresa 13.0 (11.5-14.5) % Plt Count 194 (130-400) K/uL MPV 10.9 (9.4-12.3) fL Immature Gran % (Auto) 0.5 % Neut % (Auto) 66.8 % Lymph % (Auto) 20.5 % [place] % (Auto) 10.6 % Eos % (Auto) 0.8 % Baso % (Auto) 0.8 % Neut # (Auto) 4.42 (1.4-6.5) K/uL Lymph # (Auto) 1.35 (1.2-3.4) K/uL [place] # (Auto) 0.70 (0.24-0.82) K/uL Eos # (Auto) 0.05 (0-0.50) K/uL Baso # (Auto) 0.05 (0-0.2) K/uL Immature Gran # (Auto) 0.03 H (0.00-0.02) K/uL PT (9.0-12.0) Seconds INR (0.9-1.1) APTT (21.0-31.0) Seconds PTT Ratio Sodium 142 (136-145) mmol/L Potassium 4.5 (3.5-5.1) mmol/L Chloride 114 H (98-107) mmol/L Carbon Dioxide 19 L (21-32) mmol/L Anion Gap 9 (3-11) BUN 29 H (6-23) mg/dl Creatinine 2.23 H (0.6-1.2) mg/dl Est Cr Clr Drug Dosing 22.5 ml/min Est GFR ( Amer) 25.2 ml/min Est GFR (Non-Af Amer) 21.8 ml/min BUN/Creatinine Ratio 13.0 (10-20) Glucose 109 H (70-99(Fasting)) mg/dl Lactate (0.4-2.0) mmol/L Calcium 9.6 (8.5-10.1) mg/dl Magnesium 1.8 (1.7-2.4) mg/dl Total Bilirubin 0.5 (0.2-1.0) mg/dl Direct Bilirubin TNP AST 19 (13-39) U/L ALT 20 (7-52) U/L Alkaline Phosphatase 124 H (34-104) U/L Troponin I High Sens 5.2 (0-14) pg/ml Total Protein 7.2 (6.0-8.3) gm/dl Albumin 4.1 (3.4-5.0) gm/dl Procalcitonin 0.51 H (0-0.5) ng/ml Urine Color Urine Appearance (Clear) Urine pH (4.5-7.5) Ur Specific [place] (1.000-1.030) Urine Protein (Negative) Urine Glucose (UA) (Negative) Urine Ketones (Negative) Urine Blood (Negative) Urine Nitrite (Negative) Urine Bilirubin (Negative) Urine Urobilinogen (Negative) Ur Leukocyte Esterase (Negative) Urine WBC (Auto) (0-5) /hpf Urine RBC (Auto) (0-4) /hpf U Hyaline Cast (Auto) (0-5) /lpf U Epithel Cells (Auto) (0-5) /lpf Urine Bacteria (Auto) (Negative) SARS-CoV-2 (PCR) (Negative) Influenza Type A (PCR) (Neg) Influenza Type B (PCR) (Neg) RSV (RT-PCR) (Neg) 11/02/22 11/02/22 11/02/22 Range/Units 11:07 11:30 11:43 WBC (4.8-10.8) K/ul RBC (3.93-5.22) M/uL Hgb (12.0-16.0) g/dl Hct (34.1-44.9) % MCV (80.0-100.0) fL MCH (25.0-34.0) pg MCHC (32.0-36.0) g/dL RDW Std Deviation (36.4-46.3) fL RDW Coeff of Teresa (11.5-14.5) % Plt Count (130-400) K/uL MPV (9.4-12.3) fL Immature Gran % (Auto) % Neut % (Auto) % Lymph % (Auto) % [place] % (Auto) % Eos % (Auto) % Baso % (Auto) % Neut # (Auto) (1.4-6.5) K/uL Lymph # (Auto) (1.2-3.4) K/uL [place] # (Auto) (0.24-0.82) K/uL Eos # (Auto) (0-0.50) K/uL Baso # (Auto) (0-0.2) K/uL Immature Gran # (Auto) (0.00-0.02) K/uL PT (9.0-12.0) Seconds INR (0.9-1.1) APTT (21.0-31.0) Seconds PTT Ratio Sodium (136-145) mmol/L Potassium (3.5-5.1) mmol/L Chloride (98-107) mmol/L Carbon Dioxide (21-32) mmol/L Anion Gap (3-11) BUN (6-23) mg/dl Creatinine (0.6-1.2) mg/dl Est Cr Clr Drug Dosing ml/min Est GFR ( Amer) ml/min Est GFR (Non-Af Amer) ml/min BUN/Creatinine Ratio (10-20) Glucose (70-99(Fasting)) mg/dl Lactate 1.2 (0.4-2.0) mmol/L Calcium (8.5-10.1) mg/dl Magnesium (1.7-2.4) mg/dl Total Bilirubin (0.2-1.0) mg/dl Direct Bilirubin AST (13-39) U/L ALT (7-52) U/L Alkaline Phosphatase (34-104) U/L Troponin I High Sens (0-14) pg/ml Total Protein (6.0-8.3) gm/dl Albumin (3.4-5.0) gm/dl Procalcitonin (0-0.5) ng/ml Urine Color Yellow Urine Appearance Turbid A (Clear) Urine pH 6.0 (4.5-7.5) Ur Specific [place] 1.015 (1.000-1.030) Urine Protein 2+ H (Negative) Urine Glucose (UA) Negative (Negative) Urine Ketones Negative (Negative) Urine Blood 3+ H (Negative) Urine Nitrite Negative (Negative) Urine Bilirubin Negative (Negative) Urine Urobilinogen Negative (Negative) Ur Leukocyte Esterase 3+ H (Negative) Urine WBC (Auto) >30 H (0-5) /hpf Urine RBC (Auto) >30 H (0-4) /hpf U Hyaline Cast (Auto) 1-5 (0-5) /lpf U Epithel Cells (Auto) 10-20 H (0-5) /lpf Urine Bacteria (Auto) Negative (Negative) SARS-CoV-2 (PCR) NEGATIVE (Negative) Influenza Type A (PCR) Negative (Neg) Influenza Type B (PCR) Negative (Neg) RSV (RT-PCR) Negative (Neg) 11/02/22 Range/Units 11:53 WBC (4.8-10.8) K/ul RBC (3.93-5.22) M/uL Hgb (12.0-16.0) g/dl Hct (34.1-44.9) % MCV (80.0-100.0) fL MCH (25.0-34.0) pg MCHC (32.0-36.0) g/dL RDW Std Deviation (36.4-46.3) fL RDW Coeff of Teresa (11.5-14.5) % Plt Count (130-400) K/uL MPV (9.4-12.3) fL Immature Gran % (Auto) % Neut % (Auto) % Lymph % (Auto) % [place] % (Auto) % Eos % (Auto) % Baso % (Auto) % Neut # (Auto) (1.4-6.5) K/uL Lymph # (Auto) (1.2-3.4) K/uL [place] # (Auto) (0.24-0.82) K/uL Eos # (Auto) (0-0.50) K/uL Baso # (Auto) (0-0.2) K/uL Immature Gran # (Auto) (0.00-0.02) K/uL PT 10.4 (9.0-12.0) Seconds INR 1.0 (0.9-1.1) APTT 21.1 (21.0-31.0) Seconds PTT Ratio 0.8 Sodium (136-145) mmol/L Potassium (3.5-5.1) mmol/L Chloride (98-107) mmol/L Carbon Dioxide (21-32) mmol/L Anion Gap (3-11) BUN (6-23) mg/dl Creatinine (0.6-1.2) mg/dl Est Cr Clr Drug Dosing ml/min Est GFR ( Amer) ml/min Est GFR (Non-Af Amer) ml/min BUN/Creatinine Ratio (10-20) Glucose (70-99(Fasting)) mg/dl Lactate (0.4-2.0) mmol/L Calcium (8.5-10.1) mg/dl Magnesium (1.7-2.4) mg/dl Total Bilirubin (0.2-1.0) mg/dl Direct Bilirubin AST (13-39) U/L ALT (7-52) U/L Alkaline Phosphatase (34-104) U/L Troponin I High Sens (0-14) pg/ml Total Protein (6.0-8.3) gm/dl Albumin (3.4-5.0) gm/dl Procalcitonin (0-0.5) ng/ml Urine Color Urine Appearance (Clear) Urine pH (4.5-7.5) Ur Specific [place] (1.000-1.030) Urine Protein (Negative) Urine Glucose (UA) (Negative) Urine Ketones (Negative) Urine Blood (Negative) Urine Nitrite (Negative) Urine Bilirubin (Negative) Urine Urobilinogen (Negative) Ur Leukocyte Esterase (Negative) Urine WBC (Auto) (0-5) /hpf Urine RBC (Auto) (0-4) /hpf U Hyaline Cast (Auto) (0-5) /lpf U Epithel Cells (Auto) (0-5) /lpf Urine Bacteria (Auto) (Negative) SARS-CoV-2 (PCR) (Negative) Influenza Type A (PCR) (Neg) Influenza Type B (PCR) (Neg) RSV (RT-PCR) (Neg) Administered Medications Discontinued Medications Sodium Chloride (Nss 1000ml) 1,000 mls @ 999 mls/hr IV .[id number] ONE Stop: 11/02/22 12:22 Last Infusion: 11/02/22 13:00 Dose: 0 mls/hr Documented By: Admin: 11/02/22 11:29 Dose: 999 mls/hr Documented By: SHEILA Ceftriaxone Sodium (Rocephin) 2,000 mg in 70 mls @ 140 mls/hr IV NOW STA Stop: 11/02/22 12:45 Last Infusion: 11/02/22 12:59 Dose: 0 mls/hr Documented By: Admin: 11/02/22 12:29 Dose: 140 mls/hr Documented By: SHARAD Daptomycin 375 mg/ Syringe 7.5 mls @ 3.75 mls/min IV NOW STA; Protocol Stop: 11/02/22 12:20 Last Admin: 11/02/22 12:41 Dose: 3.75 mls/min Documented By: SHARAD Morphine Sulfate (Morphine Sulfate 4 Mg/Ml 1 Ml Carp\\Vial) 4 mg IV NOW STA Stop: 11/02/22 11:25 Last Admin: 11/02/22 11:29 Dose: 4 mg Documented By: SHEILA Ondansetron HCl (Ondansetron Inj 2 Mg/Ml 2 Ml Vial) 4 mg IV NOW STA Stop: 11/02/22 11:23 Last Admin: 11/02/22 11:29 Dose: 4 mg Documented By: SHEILA Imaging Data Radiologist's Impression: Chest X-Ray 11/02/22 11:17 XR chest 1V portable CLINICAL HISTORY: Sepsis. COMPARISON STUDY: Chest radiograph January 07, 2022. FINDINGS: Lung volumes are normal. No consolidation to suggest pneumonia. Linear left lower lung densities favor atelectasis. There is no pneumothorax or pleural effusion. Cardiac size is normal. Mediastinal contours are normal. There is no evidence for pulmonary edema. IMPRESSION: No acute cardiopulmonary findings. ACT 112: Negative or not required by law. Electronically signed by: Abdirashid Motta M.D. 11/02/2022 12:10 PM Abdomen/Pelvis CT 11/02/22 11:22 CT OF THE ABDOMEN AND PELVIS WITHOUT CONTRAST CLINICAL HISTORY: Left flank pain. COMPARISON STUDY: CT of the abdomen and pelvis January 07, 2022. TECHNIQUE: Axial images of the abdomen and pelvis were obtained without IV contrast. Images were reviewed in the axial, sagittal, and coronal planes. Au tomated exposure control was utilized for the study. A dose lowering technique was utilized adhering to the principles of ALARA. FINDINGS: Several calcified nodules within the lower lungs are benign. A moderate sized hiatal hernia is present. Evaluation of the abdomen and pelvis is suboptimal as unenhanced exam. Multiple bilateral renal calculi measure up to 7 mm. There are no ureteral calculi. No bladder calculi are present. Bladder is decompressed. Bladder wall thickening with adjacent stranding is noted. This is similar to prior exam. A cyst within the upper pole of the left kidney is again noted. Marked left renal atrophy is similar to prior exam. Mild right renal atrophy is present. The left ureteral stent has been removed. Moderate dilatation of the left renal pelvis has increased since prior exam. Mild left hydroureter has also developed. Extensive urothelial thickening of the left collecting system is noted with adjacent stranding. There is no evidence for a bowel obstruction. Small ventral hernia contains a loop of small bowel without resultant bowel obstruction. There are stable postoperative findings following subtotal colectomy. There is no lymphadenopathy. No suspicious lesions are identified within the visualized skeletal structures. Gallbladder is surgically absent. There is no peripancreatic stranding. IMPRESSION: 1. Interval development of moderate dilatation of the left renal pelvis and mild left hydroureter with left collecting system urothelial thickening with adjacent stranding. This suggest left pyelitis with possible associated pyelonephritis. Bladder wall thickening with adjacent stranding. This could reflect cystitis. 2. Bilateral nephrolithiasis. No ureteral calculi. 3. Marked left renal atrophy. Mild right renal atrophy. 4. No bowel obstruction status post partial colectomy. ACT 112: Negative or not required by law. Electronically signed by: Abdirashid Motta M.D. 11/02/2022 12:52 PM Discharge Plan Visit Data Chief Complaint: Urinary Symptoms ED Provider: Kodak Velázquez Discharge Problem: Acute pyelonephritis, PERRI (acute kidney injury), Acute left flank pain Patient Disposition: Being Evaluated by Hospitalist Forms Stand Alone Forms: My [facility] Prescriptions Prescriptions: No Action ondansetron 4 mg tablet,disintegrating 4 mg PO Q8H PRN (Reason: nausea and vomiting) Qty: 10 0RF fluconazole [Diflucan] 100 mg tablet 100 mg PO DAILY Qty: 3 0RF metoprolol succinate 50 mg tablet extended release 24 hr 50 mg PO QAM Label Comments: Take 1 (50mg) tablet in AM Trelegy Ellipta 100-62.5-25 mcg blister with device 1 inh inhalation DAILY PRN (Reason: Shortness Of Breath) Label Comments: Inhale 1 puff PO daily metoprolol succinate 25 mg tablet extended release 24 hr 25 mg PO PM Label Comments: Take 1 (25mg) tablet in PM albuterol sulfate 90 mcg/actuation Hfa Aerosol Inhaler 2 puff INHALATION Q4H PRN (Reason: Shortness Of Breath) atorvastatin [Lipitor] 40 mg Tablet 40 mg PO QPM clopidogrel [Plavix] 75 mg Tablet 75 mg PO QPM pantoprazole [Protonix] 40 mg Tablet,Delayed Release (Dr/Ec) 40 mg PO BID riboflavin (vitamin B2) 400 mg Tablet 400 mg PO QPM cholecalciferol (vitamin D3) [Vitamin D3] 2,000 unit Capsule 2,000 unit PO QAM Label Comments: Patient has not taken medications for a while (05/25) acetaminophen [Tylenol Extra Strength] 500 mg Tablet 1,000 mg PO AMHS tamsulosin 0.4 mg capsule 0.4 mg PO DAILY oxcarbazepine 300 mg tablet 300 mg PO BID glipizide [Glucotrol XL] 2.5 mg tablet extended release 24hr 2.5 mg PO PM phenazopyridine [Pyridium] 100 mg Tablet 100 mg PO TID PRN (Reason: bladder spasms) Qty: 30 0RF Mag 64 64 mg Tablet,Delayed Release (Dr/Ec) 64 mg PO BID Qty: 60 0RF loperamide 2 mg Capsule 2 mg PO TID PRN (Reason: diarrhea) Qty: 30 0RF Referrals Referrals: Lo Chand DO [Primary Care Provider] -
[2022-11-02 11:50] LABS: Appearance Urine Turbid (Clear); Bacteria Urine Automated Negative (Negative); Bilirubin Urine Negative (Negative); Blood Urine 3+ (Negative); Color Urine Yellow; Glucose Urine UA Negative (Negative); Ketones Urine Negative (Negative); Leukocyte Esterase Urine 3+ (Negative); Nitrite Urine Negative (Negative); Protein Urine 2+ (Negative); RBC Urine Automated >30 /hpf (0-4); Specific Gravity Urine 1.015 (1.000-1.030); Urobilinogen Urine Negative (Negative); WBC Urine Automated >30 /hpf (0-5)
--- NOTE | 2022-11-02 12:12 | XRay Report ---
XR chest 1V portable CLINICAL HISTORY: Sepsis. COMPARISON STUDY: Chest radiograph January 07, 2022. FINDINGS: Lung volumes are normal. No consolidation to suggest pneumonia. Linear left lower lung dens ities favor atelectasis. There is no pneumothorax or pleural effusion. Cardiac size is normal. Medias tinal contours are normal. There is no evidence for pulmonary edema. IMPRESSION: No acute cardiopulmonary findings. ACT 112: Negative or not required by law. Electronically signed by: Abdirashid Motta M.D. 11/02/2022 12:10 PM
[2022-11-02] MEDS ORDERED: DAPTOmycin 525 MG in SYRINGE 0 ML IV ONE (12:16)
[2022-11-02] MEDS ORDERED: cefTRIAXone SODIUM 2,000 MG/70 ML BAG IV STA (12:16)
[2022-11-02] MEDS ORDERED: DAPTOmycin 375 MG in SYRINGE 0 ML IV STA (12:19)
[2022-11-02 12:26] LABS: Influenza A virus by PCR Negative (Neg); Influenza B virus by PCR Negative (Neg); RSV by PCR Negative (Neg); SARS CoV2 RNA(COVID-19) Ceph NEGATIVE (Negative)
[2022-11-02 12:53] LABS: Partial Thromboplastin Ratio 0.8; Partial Thromboplastin Time 21.1 Seconds (21.0-31.0); Prothrombin Time 10.4 Seconds (9.0-12.0)
--- NOTE | 2022-11-02 12:53 | CT Scan Report ---
CT OF THE ABDOMEN AND PELVIS WITHOUT CONTRAST CLINICAL HISTORY: Left flank pain. COMPARISON STUDY: CT of the abdomen and pelvis January 07, 2022. TECHNIQUE: Axial images of the abdomen and pelvis were obtained without IV contrast. Images were revi ewed in the axial, sagittal, and coronal planes. Automated exposure control was utilized for the ascencion dy. A dose lowering technique was utilized adhering to the principles of ALARA. FINDINGS: Several calcified nodules within the lower lungs are benign. A moderate sized hiatal hernia is present. Evaluation of the abdomen and pelvis is suboptimal as unenhanced exam. Multiple bilatera l renal calculi measure up to 7 mm. There are no ureteral calculi. No bladder calculi are present. Bl adder is decompressed. Bladder wall thickening with adjacent stranding is noted. This is similar to p rior exam. A cyst within the upper pole of the left kidney is again noted. Marked left renal atrophy is similar to prior exam. Mild right renal atrophy is present. The left ureteral stent has been remov ed. Moderate dilatation of the left renal pelvis has increased since prior exam. Mild left hydrourete r has also developed. Extensive urothelial thickening of the left collecting system is noted with adj acent stranding. There is no evidence for a bowel obstruction. Small ventral hernia contains a loop o f small bowel without resultant bowel obstruction. There are stable postoperative findings following subtotal colectomy. There is no lymphadenopathy. No suspicious lesions are identified within the visu alized skeletal structures. Gallbladder is surgically absent. There is no peripancreatic stranding. IMPRESSION: 1. Interval development of moderate dilatation of the left renal pelvis and mild left hydroureter wit h left collecting system urothelial thickening with adjacent stranding. This suggest left pyelitis wi th possible associated pyelonephritis. Bladder wall thickening with adjacent stranding. This could re flect cystitis. 2. Bilateral nephrolithiasis. No ureteral calculi. 3. Marked left renal atrophy. Mild right renal atrophy. 4. No bowel obstruction status post partial colectomy. ACT 112: Negative or not required by law. Electronically signed by: Abdirashid Motta M.D. 11/02/2022 12:52 PM
[2022-11-02 13:00] LABS: Alanine Aminotransferase 20 U/L (7-52); Albumin Level 4.1 gm/dl (3.4-5.0); Alkaline Phosphatase 124 U/L (34-104); Anion Gap 9 (3-11); Aspartate Aminotransferase 19 U/L (13-39); Bilirubin,Total 0.5 mg/dl (0.2-1.0); Blood Urea Nitrogen 29 mg/dl (6-23); Calcium 9.6 mg/dl (8.5-10.1); Carbon Dioxide 19 mmol/L (21-32); Chloride 114 mmol/L (98-107); Creatinine Clr Calc Pharmacy 22.5 ml/min; Est GFR (African American) 25.2 ml/min; Est GFR (Non-African American) 21.8 ml/min; Glucose 109 mg/dl (70-99(Fasting)); Magnesium 1.8 mg/dl (1.7-2.4); Potassium 4.5 mmol/L (3.5-5.1); Sodium 142 mmol/L (136-145); Total Protein 7.2 gm/dl (6.0-8.3); Troponin I High Sensitivity 5.2 pg/ml (0-14)
--- NOTE | 2022-11-02 14:36 | Electrocardiogram Report ---
Test Reason : Blood Pressure : / mmHG Vent. Rate : 087 BPM Atrial Rate : 087 BPM P-R Int : 180 ms QRS Dur : 062 ms QT Int : 318 ms P-R-T Axes : 040 -12 000 degrees QTc Int : 382 ms Normal sinus rhythm with sinus arrhythmia Moderate voltage criteria for LVH, may be normal variant Inferior infarct (cited on or before 22-DEC-2021) Abnormal ECG When compared with ECG of 11-JAN-2022 19:58, Vent. rate has decreased BY 48 BPM Non-specific change in ST segment in Inferior leads Inverted T waves have replaced nonspecific T wave abnormality in Inferior leads Confirmed by Jas Lazcano ([id number]) on 11/02/2022 2:36:18 PM Referred By: Confirmed By:Efrem Lazcano
--- NOTE | 2022-11-02 15:20 | Urology Consultation ---
Date of Consultation November 02, 2022 Assessment & Plan (1) Acute pyelonephritis: (2) PERRI (acute kidney injury): (3) Bilateral nephrolithiasis: Plan 67yo/F who presented with nausea, weakness, flank pain and admitted with pyelonephritis, PERRI. -CT a/p suggestive of left pyelitis with possible pyelonephritis. Bladder thickening with stranding suggesting cystitis. Bilateral nephrolithiasis, no ureteral or obstructing stones noted. -Low-grade temp of 37.7C. Tachycardic, but normotensive. -Labs reviewed-no leukocytosis, creatinine 2.23 (baseline around 1.5). -Urine and blood cultures pending. Received IV Daptomycin and Rocephin in the ED. Follow cultures and tailor as culture data becomes available. -External urinary catheter in place. Continue to monitor, bladder scan prn. -No acute intervention warranted at this time. -Moderate dilatation of the left renal pelvis and mild left hydroureter likely due to the infection, not obstruction. -Recommend supportive care and antibiotic therapy. -Urology will follow. History of Present Illness Reason for Consultation: Pyelonephritis, PERRI History of Present Illness 67-year-old female who presented to the emergency department today with nausea, flank pain, weakness and admitted with pyelonephritis, PERRI. On arrival she had a low-grade temp of 37.7. Tachycardic, but normotensive. No leukocytosis and creatinine of 2.23 (baseline around 1.5). Normal lactate. Urinalysis with blood and leuks, negative bacteria, negative nitrite. Urine and blood cultures are pending. Received IV Rocephin and Daptomycin in the emergency department. Admitted to medicine for further management. CT a/p- 1. Interval development of moderate dilatation of the left renal pelvis and mild left hydroureter with left collecting system urothelial thickening with adjacent stranding. This suggest left pyelitis with possible associated pyelonephritis. Bladder wall thickening with adjacent stranding. This could reflect cystitis. 2. Bilateral nephrolithiasis. No ureteral calculi. 3. Marked left renal atrophy. Mild right renal atrophy. 4. No bowel obstruction status post partial colectomy. Well-known to the urology service. Follows with Dr. Adam. History of stones, urosepsis. Pt examined at bedside in the emergency department. Awake, resting in bed on arrival. No acute distress. Still with left flank pain. External urinary catheter in place, draining concentrated yellow urine. Reports she has poorly tolerated stents and urinary catheters in the past. Allergies Allergy/AdvReac Type Severity Reaction Status Date / Time fentanyl Allergy Severe itching/felt Verified 11/02/22 14:35 like throat closing salicylates Allergy Severe SHORTNESS Verified 11/02/22 14:35 OF BREATH Iodinated Contrast Media Allergy Intermediate EYES Verified 11/02/22 14:35 SWELLING/Hives amoxicillin [From Augmentin] Allergy Mild Rash Verified 11/02/22 14:35 aspirin Allergy Mild FACIAL Verified 11/02/22 14:35 SWELLING clavulanic acid Allergy Mild Rash Verified 11/02/22 14:35 [From Augmentin] hydromorphone Allergy Mild RASH/ITCHIN Verified 11/02/22 14:35 G meperidine AdvReac Intermediate ITCH Verified 11/02/22 14:35 morphine AdvReac Intermediate ITCH Verified 11/02/22 14:35 tramadol AdvReac Mild itch Verified 11/02/22 14:35 Home Medications Medication Instructions Recorded Confirmed Type atorvastatin 40 mg tablet (Lipitor) 40 mg PO QPM 07/12/18 11/02/22 History pantoprazole 40 mg tablet,delayed 40 mg PO BID 07/12/18 11/02/22 History release (Protonix) riboflavin (vitamin B2) 400 mg 400 mg PO QPM 07/12/18 11/02/22 History tablet cholecalciferol (vitamin D3) 50 2,000 unit PO QAM 05/16/19 11/02/22 History mcg (2,000 unit) capsule (Vitamin D3) albuterol sulfate 90 mcg/actuation 2 puff inhalation Q4H PRN 07/21/19 11/02/22 History aerosol inhaler Shortness Of Breath fluticasone fur. 100 mcg-umeclid 1 inh inhalation DAILY PRN 12/11/20 11/02/22 History 62.5 mcg-vilant 25 mcg Shortness Of Breath inhalat.powder (Trelegy Ellipta) metoprolol succinate 50 mg 50 mg PO HS 12/11/20 11/02/22 History tablet,extended release 24 hr glipizide 2.5 mg tablet, extended 2.5 mg PO DAILY 04/29/21 11/02/22 History release 24 hr (Glucotrol XL) ondansetron 4 mg disintegrating 4 mg PO Q8H PRN nausea and 06/02/21 11/02/22 Rx tablet vomiting #10 tabs oxcarbazepine 300 mg tablet 300 mg PO BID 12/22/21 11/02/22 History loperamide 2 mg capsule 2 mg PO TID PRN diarrhea #30 caps 01/18/22 11/02/22 Rx hydroxyzine HCl 10 mg tablet 10 mg PO HS 11/02/22 11/02/22 History magnesium oxide 400 mg (241.3 mg 400 mg PO DAILY 11/02/22 11/02/22 History magnesium) tablet metoprolol succinate 50 mg 25 mg PO DAILY 11/02/22 11/02/22 History tablet,extended release 24 hr oxybutynin chloride 5 mg tablet 5 mg PO DAILY 11/02/22 11/02/22 History Patient History Medical History Anxiety Asthma well controlled per pt, rare inh use Bipolar disorder Chronic back pain Chronic headaches Chronic renal insufficiency stage 3, following with [facility] nephrology ([place]) Chronic respiratory failure with hypoxia CKD (chronic kidney disease), stage III COPD (chronic obstructive pulmonary disease) Deep vein thrombosis LLE - COULD NOT RECALL DATE - REPORTS SHE WAS TREATED AT [facility] W/ BLOOD THINNERS Depression DM type 2 (diabetes mellitus, type 2) GERD (gastroesophageal reflux disease) History of colon cancer 2012 S/P BOWEL RESECTION. History of COVID-27 Sep 2020 HTN (hypertension) Hyperlipidemia Kidney stone Myocardial Infarction 06/2016--> [facility] -- CARDIAC CATH --> normal coronary anatomy without coronary obstruction but Plavix started per [facility] discharge summary On anticoagulant therapy plavix daily CALI (obstructive sleep apnea) Poor historian Renal colic s/p L ureteral stent 10/2021 followed by lithotripsy, stone extraction and stent exchange 11/2021 Renal cyst 7 cm thick walled as of early 2021 Takotsubo cardiomyopathy History of in 2015 with return to normal LV function Surgical History H/O hand surgery RIGHT History of appendectomy History of bilateral cataract extraction History of blepharoplasty History of cardiac cath 03/2018 - [place] - DENIES STENTS/ANGIOPLASTY - [facility] - FOLLOWS W/ DR. TORRES History of closure of ileostomy History of colectomy due to colon cancer History of colonoscopy History of cystoscopy History of esophageal dilatation History of esophagogastroduodenoscopy (EGD) History of hysterectomy History of kidney surgery at age 9 yrs "something was wrong and had to fix it" History of lithotripsy History of tooth extraction History of total abdominal hysterectomy and bilateral salpingo-oophorectomy Hx of cholecystectomy Family History Other Breast cancer Social History Smoking Status: Never smoker Second Hand Exposure: No; Hx Alcohol Use: No Hx Substance Use: No Preferred Language: Kinyarwanda Communication Ability: Effective Visual Impairment: No Limitations Hearing Ability: Normal Music Typographer Required: No Beliefs That Will Affect Care: None marital status: Current Living Situation: Alone Current Living Situation Comment: [facility] Feels Safe at Home: Yes Assistive Devices: Cane, Glasses, Oxygen - Continuous and Walker Review of Systems Review of Systems: All systems reviewed & are unremarkable except as noted in HPI & below Physical Exam Constitutional: + ill appearing and cooperative; no acute distress Neck: normal visual inspection Respiratory: no respiratory distress and no labored breathing Gastrointestinal (Abdomen): Left flank/LLQ tenderness with palpation Musculoskeletal: Head/Neck/Chest: normocephalic Skin: No visible rashes or lesions to exposed skin areas Neurologic: awake Psychiatric: Orientation: alert and oriented x 3 Genitourinary: Urine is concentrated yellow Results & Data ([facility]) Vital Signs (Past 12 Hours) Vital Signs Temp Pulse Pulse Resp BP BP Pulse Ox 11/02/22 13:58 99 11/02/22 13:54 108 H 19 132/77 99 11/02/22 11:29 37.7 C H 93 H 19 128/85 95 11/02/22 10:56 37.7 C H 103 H 19 128/95 94 O2 Del Method O2 Flow Rate 11/02/22 13:58 Nasal Cannula 2 11/02/22 13:54 Nasal Cannula 2 11/02/22 11:29 Nasal Cannula 2 11/02/22 10:56 Nasal Cannula 2 PG Care Time/CCT Total # of Minutes Spent Total Time Spent with Patient: Total time spent is greater than 50% in coordination of care (as documented) at patient's floor/unit and/or counseling patient: Coding Level of Care Code 52128 INT INP/OBS CARE MIN Diagnoses Acute pyelonephritis N10 PERRI (acute kidney injury) N17.9 Bilateral nephrolithiasis N20.0
--- NOTE | 2022-11-02 15:21 | History & Physical Report ---
Date of Service November 02, 2022 Assessment & Plan (1) Acute pyelonephritis: Plan: Admit to [facility] with telemetry Patient presenting from home with reports of generalized weakness and back pain. In the ED, CT ABD/pelvis showing interval development of moderate dilatation of the left renal pelvis and mild left hydroureter with left collecting system urothelial thickening with adjacent stranding. This suggest left pyelitis with possible associated pyelonephritis. Bladder wall thickening with adjacent stranding. This could reflect cystitis. Bilateral nephrolithiasis. No ureteral calculi. History of left ureteral stent, s/p removal 01/2022 Low-grade fever, mild tachycardia. No leukocytosis, lactate and BP normal. History of VRE and Klebsiella UTI. S/p Dapto and ceftriaxone in the ED, continue with Follow blood and urine cultures Urology consult, case discussed with NICHOL Rogers (2) PERRI (acute kidney injury): (3) CKD (chronic kidney disease), stage IV: Plan: Creatinine 2.2, baseline 1.5 IVF, follow renal functions (4) DM type 2 (diabetes mellitus, type 2): Plan: Hgb A1c 5.4 11/2021 Hold oral agents, utilize NovoLog per protocol while hospitalized (5) Hypertension: Plan: BP controlled, continue metoprolol (6) COPD (chronic obstructive pulmonary disease): (7) Chronic respiratory failure with hypoxia: Plan: No signs of acute exacerbation, saturating well on chronic 2 L of oxygen Continue home inhalers (8) Bipolar disorder: Plan: Continue home meds DVT PROPHYLAXIS SQ heparin I spent a total of 50 minutes coordinating, documenting, and providing care for this patient excluding time spent in the performance of separately billed services. This included personally reviewing all current laboratories and imaging studies, medication reconciliation, outpatient chart review, and discussion with specialists. History of Present Illness Chief Complaint: Generalized weakness, back pain Primary Care Provider: Lo Chand DO 67-year-old female with PMH DM type II, dyslipidemia, COPD with chronic hypoxic respiratory failure on 2 L of oxygen, CALI, HTN, diastolic dysfunction, CKD stage IV, bipolar disorder, history of colon cancer s/p resection, history of renal calculi, and other problems listed below who presents the ED for evaluation of generalized weakness and left-sided back pain. Patient reports she has been feeling sick for the past couple weeks. Patient was suspicious she had a UTI or kidney stone. She reports associated nausea and a few episodes of vomiting. Denies dysuria and hematuria. No hematemesis or coffee-ground emesis. Denies fevers and chills. No chest pain or shortness of breath. Denies lightheadedness, dizziness, diaphoresis, syncopal events. In the ED, patient was found to have a low-grade fever 37.7, mildly tachycardic. No leukocytosis, lactic acid normal. Found to have PERRI with creatinine 2.2 (baseline around 1 .5). UA suggestive of UTI. CT ABD/pelvis shows interval development of moderate dilatation of the left renal pelvis and mild left hydroureter with left collecting system urothelial thickening with adjacent stranding. This suggest left pyelitis with possible associated pyelonephritis. Bladder wall thickening with adjacent stranding. This could reflect cystitis. Bilateral nephrolithiasis. No ureteral calculi. Patient was given IV ceftriaxone, IV daptomycin, IV morphine, IV Zofran, IVF. Allergies Allergy/AdvReac Type Severity Reaction Status Date / Time fentanyl Allergy Severe itching/felt Verified 11/02/22 14:35 like throat closing salicylates Allergy Severe SHORTNESS Verified 11/02/22 14:35 OF BREATH Iodinated Contrast Media Allergy Intermediate EYES Verified 11/02/22 14:35 SWELLING/Hives amoxicillin [From Augmentin] Allergy Mild Rash Verified 11/02/22 14:35 aspirin Allergy Mild FACIAL Verified 11/02/22 14:35 SWELLING clavulanic acid Allergy Mild Rash Verified 11/02/22 14:35 [From Augmentin] hydromorphone Allergy Mild RASH/ITCHIN Verified 11/02/22 14:35 G meperidine AdvReac Intermediate ITCH Verified 11/02/22 14:35 morphine AdvReac Intermediate ITCH Verified 11/02/22 14:35 tramadol AdvReac Mild itch Verified 11/02/22 14:35 Home Medications Medication Instructions Recorded Confirmed Type atorvastatin 40 mg tablet (Lipitor) 40 mg PO QPM 07/12/18 11/02/22 History pantoprazole 40 mg tablet,delayed 40 mg PO BID 07/12/18 11/02/22 History release (Protonix) riboflavin (vitamin B2) 400 mg 400 mg PO QPM 07/12/18 11/02/22 History tablet cholecalciferol (vitamin D3) 50 2,000 unit PO QAM 05/16/19 11/02/22 History mcg (2,000 unit) capsule (Vitamin D3) albuterol sulfate 90 mcg/actuation 2 puff inhalation Q4H PRN 07/21/19 11/02/22 History aerosol inhaler Shortness Of Breath fluticasone fur. 100 mcg-umeclid 1 inh inhalation DAILY PRN 12/11/20 11/02/22 History 62.5 mcg-vilant 25 mcg Shortness Of Breath inhalat.powder (Trelegy Ellipta) metoprolol succinate 50 mg 50 mg PO HS 12/11/20 11/02/22 History tablet,extended release 24 hr glipizide 2.5 mg tablet, extended 2.5 mg PO DAILY 04/29/21 11/02/22 History release 24 hr (Glucotrol XL) ondansetron 4 mg disintegrating 4 mg PO Q8H PRN nausea and 06/02/21 11/02/22 Rx tablet vomiting #10 tabs oxcarbazepine 300 mg tablet 300 mg PO BID 12/22/21 11/02/22 History loperamide 2 mg capsule 2 mg PO TID PRN diarrhea #30 caps 01/18/22 11/02/22 Rx hydroxyzine HCl 10 mg tablet 10 mg PO HS 11/02/22 11/02/22 History magnesium oxide 400 mg (241.3 mg 400 mg PO DAILY 11/02/22 11/02/22 History magnesium) tablet metoprolol succinate 50 mg 25 mg PO DAILY 11/02/22 11/02/22 History tablet,extended release 24 hr oxybutynin chloride 5 mg tablet 5 mg PO DAILY 11/02/22 11/02/22 History Past Med/Surg History Medical History Anxiety Asthma well controlled per pt, rare inh use Bipolar disorder Chronic back pain Chronic headaches Chronic renal insufficiency stage 3, following with [facility] nephrology ([place]) Chronic respiratory failure with hypoxia CKD (chronic kidney disease), stage III COPD (chronic obstructive pulmonary disease) Deep vein thrombosis LLE - COULD NOT RECALL DATE - REPORTS SHE WAS TREATED AT [facility] W/ BLOOD THINNERS Depression DM type 2 (diabetes mellitus, type 2) GERD (gastroesophageal reflux disease) History of colon cancer 2012 S/P BOWEL RESECTION. History of COVID-27 Sep 2020 HTN (hypertension) Hyperlipidemia Kidney stone Myocardial Infarction 06/2016--> [facility] -- CARDIAC CATH --> normal coronary anatomy without coronary obstruction but Plavix started per [facility] discharge summary On anticoagulant therapy plavix daily CALI (obstructive sleep apnea) Poor historian Renal colic s/p L ureteral stent 10/2021 followed by lithotripsy, stone extraction and stent exchange 11/2021 Renal cyst 7 cm thick walled as of early 2021 Takotsubo cardiomyopathy History of in 2015 with return to normal LV function Surgical History H/O hand surgery RIGHT History of appendectomy History of bilateral cataract extraction History of blepharoplasty History of cardiac cath 03/2018 - [place] - DENIES STENTS/ANGIOPLASTY - [facility] - FOLLOWS W/ DR. TORRES History of closure of ileostomy History of colectomy due to colon cancer History of colonoscopy History of cystoscopy History of esophageal dilatation History of esophagogastroduodenoscopy (EGD) History of hysterectomy History of kidney surgery at age 9 yrs "something was wrong and had to fix it" History of lithotripsy History of tooth extraction History of total abdominal hysterectomy and bilateral salpingo-oophorectomy Hx of cholecystectomy Family History Other Breast cancer Social History Smoking Status: Never smoker Second Hand Exposure: No; Hx Alcohol Use: No Hx Substance Use: No Preferred Language: Divehi Communication Ability: Effective Visual Impairment: No Limitations Hearing Ability: Normal Slipcover Cutter Required: No Beliefs That Will Affect Care: None marital status: Current Living Situation: Alone Current Living Situation Comment: [facility] in [facility] Feels Safe at Home: Yes Assistive Devices: Cane, Glasses, Oxygen - Continuous and Walker Review of Systems Review of Systems: ROS per HPI, all other systems reviewed and negative Physical Exam Physical Exam: please refer to Dr. Acuna's addendum for physical exam Results & Data Results & Data ([facility]) Vital Signs (Past 12 Hours) Vital Signs Temp Pulse Pulse Resp BP BP Pulse Ox 11/02/22 13:58 99 11/02/22 13:54 108 H 19 132/77 99 11/02/22 11:29 37.7 C H 93 H 19 128/85 95 11/02/22 10:56 37.7 C H 103 H 19 128/95 94 O2 Del Method O2 Flow Rate 11/02/22 13:58 Nasal Cannula 2 11/02/22 13:54 Nasal Cannula 2 11/02/22 11:29 Nasal Cannula 2 11/02/22 10:56 Nasal Cannula 2 Laboratory Results Short CBC 11/02/22 Range/Units 10:55 WBC 6.60 (4.8-10.8) K/ul Hgb 11.3 L (12.0-16.0) g/dl Hct 36.1 (34.1-44.9) % Plt Count 194 (130-400) K/uL BMP 11/02/22 10:55 Sodium 142 Potassium 4.5 Chloride 114 H Carbon Dioxide 19 L BUN 29 H Creatinine 2.23 H Glucose 109 H Calcium 9.6 Liver Function 11/02/22 Range/Units 10:55 Total Bilirubin 0.5 (0.2-1.0) mg/dl Direct Bilirubin TNP AST 19 (13-39) U/L ALT 20 (7-52) U/L Alkaline Phosphatase 124 H (34-104) U/L Albumin 4.1 (3.4-5.0) gm/dl Urine 11/02/22 Range/Units 11:07 Urine Color Yellow Urine Appearance Turbid A (Clear) Urine pH 6.0 (4.5-7.5) Ur Specific [place] 1.015 (1.000-1.030) Urine Protein 2+ H (Negative) Urine Glucose (UA) Negative (Negative) Diagnostic Findings Chest X-Ray 11/02/22 11:17 XR chest 1V portable CLINICAL HISTORY: Sepsis. COMPARISON STUDY: Chest radiograph January 07, 2022. FINDINGS: Lung volumes are normal. No consolidation to suggest pneumonia. Linear left lower lung densities favor atelectasis. There is no pneumothorax or pleural effusion. Cardiac size is normal. Mediastinal contours are normal. There is no evidence for pulmonary edema. IMPRESSION: No acute cardiopulmonary findings. ACT 112: Negative or not required by law. Electronically signed by: Abdirashid Motta M.D. 11/02/2022 12:10 PM Abdomen/Pelvis CT 11/02/22 11:22 CT OF THE ABDOMEN AND PELVIS WITHOUT CONTRAST CLINICAL HISTORY: Left flank pain. COMPARISON STUDY: CT of the abdomen and pelvis January 07, 2022. TECHNIQUE: Axial images of the abdomen and pelvis were obtained without IV contrast. Images were reviewed in the axial, sagittal, and coronal planes. Automated exposure control was utilized for the study. A dose lowering technique was utilized adhering to the principles of ALARA. FINDINGS: Several calcified nodules within the lower lungs are benign. A moderate sized hiatal hernia is present. Evaluation of the abdomen and pelvis is suboptimal as unenhanced exam. Multiple bilateral renal calculi measure up to 7 mm. There are no ureteral calculi. No bladder calculi are present. Bladder is decompressed. Bladder wall thickening with adjacent stranding is noted. This is similar to prior exam. A cyst within the upper pole of the left kidney is again noted. Marked left renal atrophy is similar to prior exam. Mild right renal atrophy is present. The left ureteral stent has been removed. Moderate dilatation of the left renal pelvis has increased since prior exam. Mild left hydroureter has also developed. Extensive urothelial thickening of the left collecting system is noted with adjacent stranding. There is no evidence for a bowel obstruction. Small ventral hernia contains a loop of small bowel without resultant bowel obstruction. There are stable postoperative findings following subtotal colectomy. There is no lymphadenopathy. No suspicious lesions are identified within the visualized skeletal structures. Gallbladder is surgically absent. There is no peripancreatic stranding. IMPRESSION: 1. Interval development of moderate dilatation of the left renal pelvis and mild left hydroureter with left collecting system urothelial thickening with adjacent stranding. This suggest left pyelitis with possible associated pyelonephritis. Bladder wall thickening with adjacent stranding. This could reflect cystitis. 2. Bilateral nephrolithiasis. No ureteral calculi. 3. Marked left renal atrophy. Mild right renal atrophy. 4. No bowel obstruction status post partial colectomy. ACT 112: Negative or not required by law. Electronically signed by: Abdirashid Motta M.D. 11/02/2022 12:52 PM Code Status & VTE Plan Code Status Patient is a DNR as per discussion. VTE Prophylaxis Plan VTE Prophylaxis will be ordered: Yes Supervising Physician Co-Signing Physician Notes Pt is a 67 y/o F with hx of DMII, HTN, hx of b/l nephrolithiasis with L ureteral stent, CKD IV (bl Cr: 1.3-2), COPD, CALI, Chronic respiratory failure on 2L, tremors, hx of VRE UTI admitted for worsening ambulatory dysfunction and L Pyelonephritis PE: Mild distress, Obese pt, NC in place Lungs: CTA, no wheezing or crackles Cardiac: normal S1/S2, no murmur Abd: Obese abd, diffuse TTP, soft MSK: no edema Psych: AAOx3, normal affect A/P: Acute Pyelonephritis with PERRI on CKD IV: -due to prior hx of VRE and Klebsiella on Urine culture will continue pt on daptomycin and Ceftriaxone -CT abd: Interval development of moderate dilatation of the left renal pelvis and mild left hydroureter with left collecting system urothelial thickening with adjacent stranding -due to prior hx of ureteral stent will consult urology -UCx and BCx sent - will trend BMp to monitor his cr Ambulatory dysfunction: -per pt she uses walker and cane at home - will get PT/OT eval Chronic respiratory failure on 2L: -currently on baseline oxygen requirement Other chronic conditions: plan as above Agree with A/P by NICHOL Zavala
[2022-11-02] MEDS ORDERED: GLUCOSE 40% GEL 15 GM TUBE PO PRN (16:48)
[2022-11-02] MEDS ORDERED: GLUCOSE 10 TAB/TUBE PO PRN (16:48)
[2022-11-02] MEDS ORDERED: DEXTROSE 50% 50 ML SYRINGE IV PRN (16:48)
[2022-11-02] MEDS ORDERED: GLUCAGON FOR INJ 1 MG VIAL SQ PRN (16:48)
[2022-11-02] MEDS ORDERED: ACETAMINOPHEN 325 MG TAB PO PRN (16:48)
[2022-11-02] MEDS ORDERED: CARBOHYDRATES FOR HYPOGLYCEMIA PO PRN (16:48)
[2022-11-02] MEDS ORDERED: INFLUENZA VACCINE HIGH DOSE PF 65+ 0.7 ML SYR IM ONE (16:58)
[2022-11-02] MEDS: SODIUM CHLORIDE 0.9% 1000ML 1,000 ML IV SCH (17:12)
[2022-11-02] MEDS: INSULIN ASPART PER UNIT SC SCH ×2 (17:13→20:41)
[2022-11-02] MEDS ORDERED: oxyCODONE HCL IR 5 MG TAB (IMMEDIATE RELEASE) PO PRN (17:35)
[2022-11-02] MEDS: MoRPHine SULFATE 4 MG/ML 1 ML CARP\\VIAL IV PRN (17:51)
[2022-11-02] MEDS: ONDANSETRON INJ 2 MG/ML 2 ML VIAL IV PRN (17:52)
[2022-11-02] MEDS: HEPARIN SOD 5,000 UNIT/0.5 ML VIAL SQ SCH ×2 (17:54→22:00)
[2022-11-02] MEDS ORDERED: PROMETHAZINE HCL 12.5 MG in SODIUM CHLORIDE 0.9% 50 ML IV STA (20:46)
[2022-11-02] MEDS ORDERED: hydrOXYzine HCl 10 MG TAB PO SCH (21:00)
[2022-11-02] MEDS ORDERED: ATORVASTATIN 40 MG TAB PO SCH (21:00)
[2022-11-02] MEDS: PANTOprazole 40 MG TAB PO SCH (22:00)
[2022-11-02] MEDS: METOPROLOL SUCC 50MG EXT REL TAB PO SCH (22:00)
[2022-11-02] MEDS: OXcarbazepine 150 MG TABLET PO SCH (22:00)
[2022-11-03] MEDS: MoRPHine SULFATE 4 MG/ML 1 ML CARP\\VIAL IV PRN ×4 (03:33→21:07)
[2022-11-03] MEDS: SODIUM CHLORIDE 0.9% 1000ML 1,000 ML IV SCH ×2 (03:36→13:48)
[2022-11-03] MEDS: ONDANSETRON INJ 2 MG/ML 2 ML VIAL IV PRN ×3 (03:41→15:44)
[2022-11-03] MEDS: HEPARIN SOD 5,000 UNIT/0.5 ML VIAL SQ SCH ×3 (06:18→21:07)
--- NOTE | 2022-11-03 06:20 | Urology Progress Note ---
Date of Service November 03, 2022 Assessment & Plan (1) Acute pyelonephritis: (2) PERRI (acute kidney injury): (3) Bilateral nephrolithiasis: Plan 67yo/F who presented with nausea, weakness, flank pain and admitted with pyelonephritis, PERRI. CT a/p on admission suggestive of left pyelitis with possible pyelonephritis. Bladder thickening with stranding suggesting cystitis. Bilateral nephrolithiasis, no ureteral or obstructing stones noted. - Afebrile overnight, VSS. - Lab work reviewed - creatinine improved to 1.93, WBC 5.28, Hgb 9.0. - Urine and blood cultures pending. On IV Daptomycin and Rocephin. - Follow cultures and tailor per sensitivities as culture data becomes available. - External urinary catheter in place. Continue to monitor, bladder scan prn. - No acute intervention warranted at this time. - Dilatation of the left renal pelvis and left hydroureter is likely due to acute infection, no obstruction seen. - Recommend continue conservative management with supportive care and antibiotic therapy. - Urology will follow. Admission and Anticipated Discharge Date Admission Date: November 02, 2022 Subjective Patient seen and examined at bedside this morning. She is resting in bed in no acute distress, arouses easily to her name. No acute issues overnight. She reports ongoing left abdominal and flank discomfort. She reports feeling cold overnight, but no fever or chills. Reports she had emesis x2 yesterday evening, then dry heaves. Notes nausea at present, no vomiting. External catheter in place draining concentrated yellow urine. Review of Systems Constitutional: as per Subjective / HPI Gastrointestinal: as per Subjective / HPI Genitourinary: as per Subjective / HPI Physical Exam Constitutional: + obese and cooperative; no acute distress Respiratory: no respiratory distress and no labored breathing Gastrointestinal (Abdomen): Left flank/LLQ tenderness with palpation Musculoskeletal: Head/Neck/Chest: normocephalic Skin: No visible rashes or lesions to exposed skin areas Neurologic: awake Psychiatric: Orientation: alert and oriented x 3 Genitourinary: External catheter in place, Urine is concentrated yellow Results & Data ([facility]) Vital Signs (Past 12 Hours) Vital Signs Temp Pulse Pulse Resp BP Pulse Ox O2 Del Method 11/03/22 03:00 36.8 C 81 20 111/73 96 Nasal Cannula 11/03/22 01:11 85 11/02/22 22:00 36.9 C 76 20 119/78 96 Nasal Cannula 11/02/22 19:00 36.9 C 88 20 118/76 100 Nasal Cannula O2 Flow Rate 11/03/22 03:00 2 11/03/22 01:11 11/02/22 22:00 2 11/02/22 19:00 2 PG Care Time/CCT Total # of Minutes Spent Total Time Spent with Patient: Total time spent is greater than 50% in coordination of care (as documented) at patient's floor/unit and/or counseling patient: Coding Level of Care Code 92673 SUB INP/OBS CARE 11/03MIN Diagnoses Acute pyelonephritis N10 PERRI (acute kidney injury) N17.9 Bilateral nephrolithiasis N20.0
[2022-11-03 07:26] LABS: Hematocrit (blood only) 29.6 % (34.1-44.9); Mean Corpuscular Hemoglobin 30.1 pg (25.0-34.0); Mean Corpuscular Hgb Conc 30.4 g/dL (32.0-36.0); Mean Platelet Volume 10.6 fL (9.4-12.3); Platelet Count 175 K/uL (130-400); RDW Coefficient of Variation 13.2 % (11.5-14.5); RDW Standard Deviation 47.8 fL (36.4-46.3); Red Blood Count 2.99 M/uL (3.93-5.22); White Blood Count 5.28 K/ul (4.8-10.8)
[2022-11-03 07:48] LABS: BUN Creatinine Ratio 12.4 (10-20); Calcium 8.8 mg/dl (8.5-10.1); Creatinine Clr Calc Pharmacy 26.3 ml/min; Est GFR (African American) 30.1 ml/min; Est GFR (Non-African American) 25.9 ml/min
[2022-11-03] MEDS: METOPROLOL SUCC 25MG EXT REL TAB PO SCH (07:55)
[2022-11-03] MEDS: MAGNESIUM OXIDE 400 MG TAB PO SCH (07:55)
[2022-11-03] MEDS: OXcarbazepine 150 MG TABLET PO SCH ×2 (07:55→21:35)
[2022-11-03] MEDS: PANTOprazole 40 MG TAB PO SCH ×2 (07:56→21:35)
[2022-11-03] MEDS: OXYBUTYNIN CHLORIDE 5 MG TAB PO SCH (07:56)
[2022-11-03] MEDS: FLUTICASONE FUROATE 100MCG 14 PUFFS/INHALER INH SCH (11:33)
[2022-11-03] MEDS: INSULIN ASPART PER UNIT SC SCH ×4 (11:33→20:27)
[2022-11-03] MEDS: UMECLIDINIUM/VILANTEROL 62.5/25MCG 7 PUFFS/INHALER INH SCH (11:33)
[2022-11-03 12:18] LABS: Estimated Average Glucose 108 mg/dl; Hemoglobin A1C 5.4 % (4.5-5.6)
[2022-11-03] MEDS: cefTRIAXone SODIUM 2,000 MG in DEXTROSE 5% 50 ML IV SCH (14:29)
--- NOTE | 2022-11-03 15:25 | Hospitalist Progress Note ---
Date of Service November 03, 2022 Assessment & Plan (1) Acute pyelonephritis: Plan 67-year-old lady with PMH of DM2, HTN, bilateral nephrolithiasis with left ureteral stent, CKD stage IV [baseline creatinine 1.3-2], COPD, CALI, chronic respiratory failure on 2 L, tremors, VRE UTI admitted 11/02 with worsening ambulatory dysfunction and left pyelonephritis. She is being managed for the following: Acute left pyelonephritis Nausea, vomiting Patient presented with generalized weakness, left-sided flank pain. History of left ureteral stent, status post removal 01/2022. History of VRE and Klebsiella UTI. Admitting CTAP with moderate dilatation of the left renal pelvis and mild left hydroureter with left collecting system urothelial thickening with adjacent stranding. This is suggestive of left pyelitis with possible associated pyelonephritis. Bladder wall thickening with adjacent stranding. This could reflect cystitis. Bilateral nephrolithiasis. No ureteral calculi. Admitting urine culture, contaminant. Admitting blood culture, no growth so far, follow-up. Low-grade fever at admission, has been afebrile since then. Status post daptomycin and Rocephin in the ED, continue with Dapto and Rocephin 11/02. Urology evaluated, no acute intervention, supports conservative management. Continue nausea medication, continue gentle IV fluids, clear liquid diet, advance as tolerated. Can DC IV fluids once patient able to tolerate diet. Follow-up admitting blood culture. PERRI over CKD: Admitting creatinine of 2.23, baseline creatinine 1.3-2.0, likely secondary to dehydration from nausea and vomiting, continue with IV fluid, monitor BMP in a.m., avoid nephrotoxic. Ambulatory dysfunction: Per patient's he uses walker and cane at home, PT/OT eval. Chronic respiratory failure on 2 L: At baseline oxygen requirement. Other chronic medical conditions: DM type II, HTN, COPD, bipolar disorder --- resume home meds as able DVT prophylaxis: Subcu heparin DNR/DNI Admission and Anticipated Discharge Date Admission Date: November 02, 2022 Subjective Patient seen and examined at bedside as a follow-up of acute pyelonephritis and PERRI over CKD stage IV. Patient was lying in bed, on room air, in mild distress due to ongoing nausea and vomiting and left flank pain. Patient reports some headache, denies dizziness or chest pain or feeling of heart racing, reports left belly pain and upper belly pain, reports pain radiating down to left groin, he is n.p.o., still with some nausea and vomiting, appears ill/sick. Physical Exam Physical Exam: GENERAL: Alert and oriented x3. mild distress, on 2 L nasal cannula. Appears ill/sick. Obese class II HEENT: No pallor, no icterus. Pupils equal, round and reactive to light. Oral mucosa moist. NECK: No JVD, no neck masses. HEART: S1 and S2 heard. Regular rate and rhythm. No murmur, no gallop. RESPIRATORY SYSTEM: Normal AP diameter. No accessory muscle use. No wheezing, no crackles. ABDOMEN: Soft, bowel sounds present, epigastric and left abdominal mild tenderness Left CVA angle tenderness. CENTRAL NERVOUS SYSTEM: No facial droop. Speech is clear. Obeys simple commands. Moves extremities. EXTREMITIES: No edema, no erythema seen. Results & Data Results & Data ([facility]) Vital Signs (Past 12 Hours) Vital Signs Temp Pulse Pulse Resp BP Pulse Ox O2 Del Method 11/03/22 15:00 68 11/03/22 12:00 Nasal Cannula 11/03/22 12:08 36.8 C 79 18 115/76 97 Nasal Cannula 11/03/22 11:41 37.0 C 84 16 99/65 L 95 Room Air 11/03/22 07:06 36.9 C 82 18 111/74 92 Nasal Cannula 11/03/22 06:56 77 O2 Flow Rate 11/03/22 15:00 11/03/22 12:00 2 11/03/22 12:08 2 11/03/22 11:41 11/03/22 07:06 2 11/03/22 06:56
[2022-11-03] MEDS: PROMETHAZINE HCL 12.5 MG in SODIUM CHLORIDE 0.9% 50 ML IV PRN (17:30)
--- NOTE | 2022-11-03 18:06 | Electrocardiogram Report ---
Test Reason : Blood Pressure : / mmHG Vent. Rate : 088 BPM Atrial Rate : 088 BPM P-R Int : 160 ms QRS Dur : 056 ms QT Int : 330 ms P-R-T Axes : - 032 degrees QTc Int : 399 ms Poor data quality, interpretation may be adversely affected Normal sinus rhythm Normal ECG When compared with ECG of 02-NOV-2022 11:03, Nonspecific T wave abnormality has replaced inverted T waves in Inferior leads Confirmed by Jas Lazcano ([id number]) on 11/03/2022 6:06:23 PM Referred By: REFERRED SELF Confirmed By:Efrem Lazcano
[2022-11-03] MEDS: METOPROLOL SUCC 50MG EXT REL TAB PO SCH (21:35)
[2022-11-04] MEDS: ONDANSETRON INJ 2 MG/ML 2 ML VIAL IV PRN (02:30)
[2022-11-04] MEDS: MoRPHine SULFATE 4 MG/ML 1 ML CARP\\VIAL IV PRN ×3 (02:30→20:08)
[2022-11-04] MEDS: SODIUM CHLORIDE 0.9% 1000ML 1,000 ML IV SCH (03:23)
[2022-11-04] MEDS: HEPARIN SOD 5,000 UNIT/0.5 ML VIAL SQ SCH ×3 (05:15→21:06)
[2022-11-04 06:48] LABS: Hematocrit (blood only) 31.8 % (37.0-47.0); Hemoglobin 9.4 g/dl (12.0-16.0); Mean Corpuscular Hemoglobin 29.7 pg (25.0-34.0); Mean Corpuscular Hgb Conc 29.6 g/dL (32.0-36.0); Mean Corpuscular Volume 100.3 fL (80.0-100.0); Mean Platelet Volume 10.4 fL (9.4-12.4); Platelet Count 178 K/uL (130-400); RDW Coefficient of Variation 13.1 % (11.5-14.5); RDW Standard Deviation 48.8 fL (36.4-46.3); Red Blood Count 3.17 M/uL (4.20-5.40); White Blood Count 7.25 K/ul (4.8-10.8)
[2022-11-04 07:05] LABS: BUN Creatinine Ratio 11.5 (10-20); Creatinine Clr Calc Pharmacy 27.9 ml/min; Est GFR (African American) 32.3 ml/min; Est GFR (Non-African American) 27.8 ml/min; Magnesium 1.9 mg/dl (1.7-2.4); Phosphorus 4.1 mg/dl (2.5-4.9); Potassium 4.2 mmol/L (3.5-5.1)
--- NOTE | 2022-11-04 07:34 | Urology Progress Note ---
Date of Service November 04, 2022 Assessment & Plan (1) Acute pyelonephritis: (2) PERRI (acute kidney injury): (3) Bilateral nephrolithiasis: Plan 67yo/F who presented with nausea, weakness, flank pain and admitted with pyelonephritis, PERRI. CT a/p on admission suggestive of left pyelitis with possible pyelonephritis. Bladder thickening with stranding suggesting cystitis. Bilateral nephrolithiasis, no ureteral or obstructing stones noted. - Afebrile, hemodynamically stable. - Lab work reviewed - creatinine downtrending 1.82 today, WBC 7.25, Hgb 9.4. - UC&S final with more than 3 types of organisms, blood cultures prelim no growth. Continues on IV Daptomycin and Rocephin. - Follow cultures and tailor per sensitivities as culture data becomes available. - External urinary catheter in place. Continue to monitor, bladder scan prn. - No acute intervention warranted. - Recommend continue conservative management with supportive care and antibiotic therapy. - Will arrange outpatient follow-up with our service. - Urology will follow peripherally. Please contact us with any further questions, concerns, or changes in patient status. Admission and Anticipated Discharge Date Admission Date: November 02, 2022 Subjective Patient seen and examined at bedside this morning. Resting in bed on arrival. No acute distress. Arouses easily to her name. She reports ongoing LLQ abdominal and flank discomfort. Reports feeling cold, but no fever or chills. Notes nausea at present, no vomiting. External catheter in place draining concentrated yellow urine. Review of Systems Constitutional: as per Subjective / HPI Gastrointestinal: as per Subjective / HPI Genitourinary: as per Subjective / HPI Physical Exam Constitutional: + obese and cooperative; no acute distress Respiratory: no respiratory distress and no labored breathing O2 via NC Gastrointestinal (Abdomen): Left flank/LLQ tenderness with palpation Musculoskeletal: Head/Neck/Chest: normocephalic Skin: No visible rashes or lesions to exposed skin areas Neurologic: awake Psychiatric: Orientation: alert and oriented x 3 Genitourinary: External catheter in place, Urine is concentrated yellow Results & Data ([facility]) Vital Signs (Past 12 Hours) Vital Signs Temp Pulse Pulse Resp BP Pulse Ox O2 Del Method 11/04/22 03:00 36.7 C 66 20 97/63 L 99 Nasal Cannula 11/03/22 22:57 36.9 C 68 20 106/74 99 Nasal Cannula 11/03/22 22:47 71 11/03/22 21:54 Nasal Cannula O2 Flow Rate 11/04/22 03:00 2 11/03/22 22:57 2 11/03/22 22:47 11/03/22 21:54 2 PG Care Time/CCT Total # of Minutes Spent Total Time Spent with Patient: Total time spent is greater than 50% in coordination of care (as documented) at patient's floor/unit and/or counseling patient: Coding Level of Care Code 12198 SUB INP/OBS CARE 2/35MIN Diagnoses Acute pyelonephritis N10 PERRI (acute kidney injury) N17.9 Bilateral nephrolithiasis N20.0
[2022-11-04] MEDS: INSULIN ASPART PER UNIT SC SCH ×4 (07:37→20:51)
[2022-11-04] MEDS: PROMETHAZINE HCL 12.5 MG in SODIUM CHLORIDE 0.9% 50 ML IV PRN ×2 (08:02→16:05)
[2022-11-04] MEDS: MAGNESIUM OXIDE 400 MG TAB PO SCH (08:05)
[2022-11-04] MEDS: OXcarbazepine 150 MG TABLET PO SCH ×2 (08:06→20:04)
[2022-11-04] MEDS: PANTOprazole 40 MG TAB PO SCH ×2 (08:06→20:05)
[2022-11-04] MEDS: OXYBUTYNIN CHLORIDE 5 MG TAB PO SCH (08:06)
[2022-11-04] MEDS: METOPROLOL SUCC 25MG EXT REL TAB PO SCH (08:06)
[2022-11-04] MEDS: UMECLIDINIUM/VILANTEROL 62.5/25MCG 7 PUFFS/INHALER INH SCH (08:06)
[2022-11-04] MEDS: FLUTICASONE FUROATE 100MCG 14 PUFFS/INHALER INH SCH (08:07)
[2022-11-04] MEDS: D5W AND 1/2NSS 1,000 ML IV SCH (11:24)
[2022-11-04] MEDS: cefTRIAXone SODIUM 2,000 MG in DEXTROSE 5% 50 ML IV SCH (12:38)
[2022-11-04] MEDS ORDERED: DAPTOmycin 375 MG in SYRINGE 0 ML IV SCH (13:00)
--- NOTE | 2022-11-04 17:17 | Hospitalist Progress Note ---
Date of Service November 04, 2022 Assessment & Plan (1) Acute pyelonephritis: Plan 67-year-old lady with PMH of DM2, HTN, bilateral nephrolithiasis with left ureteral stent, CKD stage IV [baseline creatinine 1.3-2], COPD, CALI, chronic respiratory failure on 2 L, tremors, VRE UTI admitted 11/02 with worsening ambulatory dysfunction and left pyelonephritis. She is being managed for the following: Acute left pyelonephritis Nausea, vomiting Patient presented with generalized weakness, left-sided flank pain. History of left ureteral stent, status post removal 01/2022. History of VRE and Klebsiella UTI. Admitting CTAP with moderate dilatation of the left renal pelvis and mild left hydroureter with left collecting system urothelial thickening with adjacent stranding. This is suggestive of left pyelitis with possible associated pyelonephritis. Bladder wall thickening with adjacent stranding. This could reflect cystitis. Bilateral nephrolithiasis. No ureteral calculi. Admitting urine culture, contaminant. Admitting blood culture, no growth so far, follow-up. Low-grade fever at admission, has been afebrile since then. Status post daptomycin and Rocephin in the ED, continue with Dapto and Rocephin 11/02. Urology evaluated, no acute intervention, supports conservative management. Continue nausea medication, continue gentle IV fluids, clear liquid diet when able, advance as tolerated. Can DC IV fluids once patient able to tolerate diet. Follow-up admitting blood culture. ID consult, await recs. PERRI over CKD: Admitting creatinine of 2.23, baseline creatinine 1.3-2.0, likely secondary to dehydration from nausea and vomiting, continue with IV fluid, monitor BMP in a.m., avoid nephrotoxic. Cr downtrending. Ambulatory dysfunction: Per patient, she uses walker and cane at home, PT/OT eval. Chronic respiratory failure on 2 L: At baseline oxygen requirement. Other chronic medical conditions: DM type II, HTN, COPD, bipolar disorder --- resume home meds as able DVT prophylaxis: Subcu heparin DNR/DNI Admission and Anticipated Discharge Date Admission Date: November 02, 2022 Subjective Patient seen and examined at bedside as a follow-up of acute pyelonephritis and PERRI over CKD stage IV. Patient was lying in bed, on room air, in mild distress due to ongoing nausea and vomiting and left flank pain. Patient reports some headache, denies dizziness or chest pain or feeling of heart racing, reports left belly pain and lower belly pain about the same as yesterday, she is n.p.o., still with some nausea and vomiting, appears ill/sick. Physical Exam Physical Exam: GENERAL: Alert and oriented x3. mild distress, on 2 L nasal cannula. Appears ill/sick. Obese class II HEENT: No pallor, no icterus. Pupils equal, round and reactive to light. Oral mucosa moist. NECK: No JVD, no neck masses. HEART: S1 and S2 heard. Regular rate and rhythm. No murmur, no gallop. RESPIRATORY SYSTEM: Normal AP diameter. No accessory muscle use. No wheezing, no crackles. ABDOMEN: Soft, bowel sounds present, lower and left abdominal mild tenderness Left CVA angle tenderness. CENTRAL NERVOUS SYSTEM: No facial droop. Speech is clear. Obeys simple commands. Moves extremities. EXTREMITIES: No edema, no erythema seen. Results & Data Results & Data ([facility]) Vital Signs (Past 12 Hours) Vital Signs Temp Pulse Pulse Resp BP Pulse Ox O2 Del Method 11/04/22 15:59 36.4 C L 59 L 18 110/71 98 Nasal Cannula 11/04/22 14:57 67 11/04/22 11:29 37.2 C 69 16 120/74 96 Room Air 11/04/22 10:21 63 11/04/22 07:46 37.0 C 72 16 110/77 99 Nasal Cannula O2 Flow Rate 11/04/22 15:59 2 11/04/22 14:57 11/04/22 11:29 11/04/22 10:21 11/04/22 07:46 2
[2022-11-04] MEDS: METOPROLOL SUCC 50MG EXT REL TAB PO SCH (20:04)
[2022-11-05] MEDS: PROMETHAZINE HCL 12.5 MG in SODIUM CHLORIDE 0.9% 50 ML IV PRN ×3 (00:03→16:40)
[2022-11-05] MEDS: MoRPHine SULFATE 4 MG/ML 1 ML CARP\\VIAL IV PRN ×5 (00:13→22:43)
[2022-11-05] MEDS: D5W AND 1/2NSS 1,000 ML IV SCH ×2 (05:06→22:37)
[2022-11-05] MEDS: HEPARIN SOD 5,000 UNIT/0.5 ML VIAL SQ SCH ×3 (05:09→22:42)
[2022-11-05] MEDS: UMECLIDINIUM/VILANTEROL 62.5/25MCG 7 PUFFS/INHALER INH SCH (08:01)
[2022-11-05] MEDS: INSULIN ASPART PER UNIT SC SCH ×4 (08:01→20:52)
[2022-11-05] MEDS: OXcarbazepine 150 MG TABLET PO SCH ×2 (08:01→19:23)
[2022-11-05] MEDS: OXYBUTYNIN CHLORIDE 5 MG TAB PO SCH (08:01)
[2022-11-05] MEDS: MAGNESIUM OXIDE 400 MG TAB PO SCH (08:01)
[2022-11-05] MEDS: METOPROLOL SUCC 25MG EXT REL TAB PO SCH (08:01)
[2022-11-05] MEDS: PANTOprazole 40 MG TAB PO SCH ×2 (08:01→19:23)
[2022-11-05] MEDS: FLUTICASONE FUROATE 100MCG 14 PUFFS/INHALER INH SCH (08:02)
[2022-11-05 10:40] LABS: Hematocrit (blood only) 30.7 % (37.0-47.0); Hemoglobin 9.2 g/dl (12.0-16.0); Mean Corpuscular Hemoglobin 30.1 pg (25.0-34.0); Mean Corpuscular Volume 100.3 fL (80.0-100.0); Mean Platelet Volume 9.8 fL (9.4-12.4); Platelet Count 160 K/uL (130-400); RDW Coefficient of Variation 13.1 % (11.5-14.5); RDW Standard Deviation 47.8 fL (36.4-46.3); Red Blood Count 3.06 M/uL (4.20-5.40); White Blood Count 5.04 K/ul (4.8-10.8)
[2022-11-05 11:35] LABS: Calcium 8.7 mg/dl (8.5-10.1); Magnesium 1.8 mg/dl (1.7-2.4); Potassium 3.8 mmol/L (3.5-5.1)
[2022-11-05 11:40] LABS: BUN Creatinine Ratio 9.2 (10-20); Creatinine Clr Calc Pharmacy 30.1 ml/min; Est GFR (African American) 34.3 ml/min; Est GFR (Non-African American) 29.6 ml/min; Phosphorus 3.6 mg/dl (2.5-4.9)
[2022-11-05] MEDS: cefTRIAXone SODIUM 2,000 MG in DEXTROSE 5% 50 ML IV SCH (12:17)
[2022-11-05] MEDS: DAPTOmycin 500 MG in SYRINGE 0 ML IV SCH (13:08)
--- NOTE | 2022-11-05 14:57 | Hospitalist Progress Note ---
Date of Service November 05, 2022 Assessment & Plan (1) Acute pyelonephritis: Plan 67-year-old lady with PMH of DM2, HTN, bilateral nephrolithiasis with left ureteral stent, CKD stage IV [baseline creatinine 1.3-2], COPD, CALI, chronic respiratory failure on 2 L, tremors, VRE UTI admitted 11/02 with worsening ambulatory dysfunction and left pyelonephritis. She is being managed for the following: Acute left pyelonephritis Nausea, vomiting Patient presented with generalized weakness, left-sided flank pain. History of left ureteral stent, status post removal 01/2022. History of VRE and Klebsiella UTI. Admitting CTAP with moderate dilatation of the left renal pelvis and mild left hydroureter with left collecting system urothelial thickening with adjacent stranding. This is suggestive of left pyelitis with possible associated pyelonephritis. Bladder wall thickening with adjacent stranding. This could reflect cystitis. Bilateral nephrolithiasis. No ureteral calculi. Admitting urine culture, contaminant. Admitting blood culture, no growth so far, follow-up. Low-grade fever at admission, has been afebrile since then. Status post daptomycin and Rocephin in the ED, continue with Dapto and Rocephin 11/02. Urology evaluated, no acute intervention, supports conservative management. f/u uro as op Patient reports improving nausea and vomiting and would like to try some food today. Continue nausea medication, continue gentle IV fluids, advance diet as tolerated. Can DC IV fluids once patient able to tolerate diet. Follow-up admitting blood culture. ID evaluated, repeat urine culture sent, will adjust antibiotic with ID recommendation after urine culture results are finalized. PERRI over CKD: Admitting creatinine of 2.23, baseline creatinine 1.3-2.0, likely secondary to dehydration from nausea and vomiting, continue with IV fluid, monitor BMP in a.m., avoid nephrotoxic. Cr downtrending. Ambulatory dysfunction: Per patient, she uses walker and cane at home, PT/OT eval. Chronic respiratory failure on 2 L: At baseline oxygen requirement. Other chronic medical conditions: DM type II, HTN, COPD, bipolar disorder --- resume home meds as able DVT prophylaxis: Subcu heparin DNR/DNI Admission and Anticipated Discharge Date Admission Date: November 02, 2022 Subjective Patient seen and examined at bedside as a follow-up of acute pyelonephritis and PERRI over CKD stage IV. Patient was lying in bed, on room air, NAD, reports somewhat improving left flank pain/nausea/vomiting. Patient reports some headache, denies dizziness or chest pain or feeling of heart racing, she is n.p.o. but she can be started on diet if she wishes, communicated with RN and the patient herself, appears ill/sick. Physical Exam Physical Exam: GENERAL: Alert and oriented x3. NAD, on 2 L nasal cannula. Appears ill/sick. Obese class III HEENT: No pallor, no icterus. Pupils equal, round and reactive to light. Oral mucosa moist. NECK: No JVD, no neck masses. HEART: S1 and S2 heard. Regular rate and rhythm. No murmur, no gallop. RESPIRATORY SYSTEM: Normal AP diameter. No accessory muscle use. No wheezing, no crackles. ABDOMEN: Soft, bowel sounds present, left lower abdominal mild tenderness Left CVA angle tenderness. CENTRAL NERVOUS SYSTEM: No facial droop. Speech is clear. Obeys simple commands. Moves extremities. EXTREMITIES: No edema, no erythema seen. Results & Data Results & Data ([facility]) Vital Signs (Past 12 Hours) Vital Signs Temp Pulse Pulse Resp BP Pulse Ox O2 Del Method 11/05/22 11:00 36.9 C 84 18 96/55 L 99 Nasal Cannula 11/05/22 08:28 36.8 C 68 20 110/48 L 100 Nasal Cannula 11/05/22 08:00 Nasal Cannula 11/05/22 07:30 66 11/05/22 03:11 36.8 C 68 18 111/70 100 Nasal Cannula O2 Flow Rate 11/05/22 11:00 2 11/05/22 08:28 2 11/05/22 08:00 2 11/05/22 07:30 11/05/22 03:11 2
[2022-11-05] MEDS: METOPROLOL SUCC 50MG EXT REL TAB PO SCH (19:22)
[2022-11-06] MEDS: HEPARIN SOD 5,000 UNIT/0.5 ML VIAL SQ SCH ×3 (05:43→21:37)
[2022-11-06] MEDS: PROMETHAZINE HCL 12.5 MG in SODIUM CHLORIDE 0.9% 50 ML IV PRN ×3 (05:43→21:35)
[2022-11-06] MEDS: MoRPHine SULFATE 4 MG/ML 1 ML CARP\\VIAL IV PRN ×2 (05:44→21:35)
[2022-11-06 05:50] LABS: Hematocrit (blood only) 27.8 % (37.0-47.0); Hemoglobin 8.7 g/dl (12.0-16.0); Mean Corpuscular Hemoglobin 30.1 pg (25.0-34.0); Mean Corpuscular Hgb Conc 31.3 g/dL (32.0-36.0); Mean Corpuscular Volume 96.2 fL (80.0-100.0); Mean Platelet Volume 9.9 fL (9.4-12.4); Platelet Count 181 K/uL (130-400); RDW Coefficient of Variation 13.1 % (11.5-14.5); RDW Standard Deviation 46.1 fL (36.4-46.3); Red Blood Count 2.89 M/uL (4.20-5.40); White Blood Count 6.19 K/ul (4.8-10.8)
[2022-11-06 06:15] LABS: Calcium 8.8 mg/dl (8.5-10.1); Magnesium 1.7 mg/dl (1.7-2.4); Potassium 3.6 mmol/L (3.5-5.1)
[2022-11-06 06:21] LABS: BUN Creatinine Ratio 8.9 (10-20); Creatinine Clr Calc Pharmacy 30.8 ml/min; Est GFR (African American) 35.3 ml/min; Est GFR (Non-African American) 30.5 ml/min
[2022-11-06] MEDS: OXcarbazepine 150 MG TABLET PO SCH ×2 (08:33→21:03)
[2022-11-06] MEDS: PANTOprazole 40 MG TAB PO SCH ×2 (08:34→21:04)
[2022-11-06] MEDS: METOPROLOL SUCC 25MG EXT REL TAB PO SCH (08:34)
[2022-11-06] MEDS: OXYBUTYNIN CHLORIDE 5 MG TAB PO SCH (08:34)
[2022-11-06] MEDS: MAGNESIUM OXIDE 400 MG TAB PO SCH (08:35)
[2022-11-06] MEDS: FLUTICASONE FUROATE 100MCG 14 PUFFS/INHALER INH SCH ×2 (08:37→08:38)
[2022-11-06] MEDS: UMECLIDINIUM/VILANTEROL 62.5/25MCG 7 PUFFS/INHALER INH SCH ×2 (08:37→08:38)
[2022-11-06] MEDS: INSULIN ASPART PER UNIT SC SCH ×4 (08:41→21:03)
[2022-11-06] MEDS: cefTRIAXone SODIUM 2,000 MG in DEXTROSE 5% 50 ML IV SCH (12:25)
[2022-11-06] MEDS: DAPTOmycin 500 MG in SYRINGE 0 ML IV SCH (12:48)
--- NOTE | 2022-11-06 13:53 | Hospitalist Progress Note ---
Date of Service November 06, 2022 Assessment & Plan (1) Acute pyelonephritis: Plan 67-year-old lady with PMH of DM2, HTN, bilateral nephrolithiasis with left ureteral stent, CKD stage IV [baseline creatinine 1.3-2], COPD, CALI, chronic respiratory failure on 2 L, tremors, VRE UTI admitted 11/02 with worsening ambulatory dysfunction and left pyelonephritis. She is being managed for the following: Acute left pyelonephritis Nausea, vomiting Patient presented with generalized weakness, left-sided flank pain. History of left ureteral stent, status post removal 01/2022. History of VRE and Klebsiella UTI. Admitting CTAP with moderate dilatation of the left renal pelvis and mild left hydroureter with left collecting system urothelial thickening with adjacent stranding. This is suggestive of left pyelitis with possible associated pyelonephritis. Bladder wall thickening with adjacent stranding. This could reflect cystitis. Bilateral nephrolithiasis. No ureteral calculi. Admitting urine culture, contaminant. Admitting blood culture, no growth so far, follow-up. F/u urine Cx, pending. Low-grade fever at admission, has been afebrile since then but a one spike of elevated temp measurement on 11/05 evening. Continue with Dapto and Rocephin 11/02 --ID evaled, will adjust antibiotic with ID recommendation after urine culture results are finalized. Urology evaluated, no acute intervention, supports conservative management. f/u uro as op Patient reports improving nausea and vomiting and has been able to eat food better. Can DC IV fluids when eating better, advance diet as tolerated. PERRI over CKD: Admitting creatinine of 2.23, baseline creatinine 1.3-2.0, likely secondary to dehydration from nausea and vomiting, monitor BMP in a.m., avoid nephrotoxic. Cr baseline. Ambulatory dysfunction: Per patient, she uses walker and cane at home, PT/OT eval. Chronic respiratory failure on 2 L: At baseline oxygen requirement. Other chronic medical conditions: DM type II, HTN, COPD, bipolar disorder --- resume home meds as able DVT prophylaxis: Subcu heparin DNR/DNI Dispo: pending improvement in pt's LLQ pain/N/V; PT/OT eval (?SNF/?HH), CM to assist w/ DC plan. Admission and Anticipated Discharge Date Admission Date: November 02, 2022 Subjective Patient seen and examined at bedside as a follow-up of acute pyelonephritis and PERRI over CKD stage IV. Patient was lying in bed, on room air, NAD, reports improving left flank pain/nausea/vomiting. Appetite opening up. Patient denies dizziness or chest pain or feeling of heart racing, or other ROS. Overall, she believes she is moving in a positive direction. Physical Exam Physical Exam: GENERAL: Alert and oriented x3. NAD, on 2 L nasal cannula. Obese class III HEENT: No pallor, no icterus. Pupils equal, round and reactive to light. Oral mucosa moist. NECK: No JVD, no neck masses. HEART: S1 and S2 heard. Regular rate and rhythm. No murmur, no gallop. RESPIRATORY SYSTEM: Normal AP diameter. No accessory muscle use. No wheezing, no crackles. ABDOMEN: Soft, bowel sounds present, left lower abdominal mild tenderness -- improving. Left CVA angle tenderness -- improving. CENTRAL NERVOUS SYSTEM: No facial droop. Speech is clear. Obeys simple commands. Moves extremities. EXTREMITIES: No edema, no erythema seen. Results & Data Results & Data ([facility]) Vital Signs (Past 12 Hours) Vital Signs Temp Pulse Pulse Resp BP Pulse Ox O2 Del Method 11/06/22 11:26 36.8 C 84 16 101/69 97 Nasal Cannula 11/06/22 11:05 Nasal Cannula 11/06/22 07:42 36.8 C 84 20 100/68 94 Nasal Cannula 11/06/22 07:33 76 11/06/22 03:25 37 C 81 18 92/61 L 98 Nasal Cannula O2 Flow Rate 11/06/22 11:26 2 11/06/22 11:05 2 11/06/22 07:42 2 11/06/22 07:33 11/06/22 03:25 2
[2022-11-06] MEDS: D5W AND 1/2NSS 1,000 ML IV SCH (16:13)
[2022-11-06] MEDS: METOPROLOL SUCC 50MG EXT REL TAB PO SCH (21:04)
[2022-11-07] MEDS: HEPARIN SOD 5,000 UNIT/0.5 ML VIAL SQ SCH ×3 (05:25→21:56)
[2022-11-07 06:18] LABS: Hematocrit (blood only) 28.2 % (37.0-47.0); Hemoglobin 8.8 g/dl (12.0-16.0); Mean Corpuscular Hemoglobin 30.3 pg (25.0-34.0); Mean Corpuscular Hgb Conc 31.2 g/dL (32.0-36.0); Mean Corpuscular Volume 97.2 fL (80.0-100.0); Mean Platelet Volume 10.5 fL (9.4-12.4); Platelet Count 184 K/uL (130-400); RDW Coefficient of Variation 13.1 % (11.5-14.5); RDW Standard Deviation 46.5 fL (36.4-46.3); White Blood Count 6.95 K/ul (4.8-10.8)
[2022-11-07 06:53] LABS: Calcium 8.7 mg/dl (8.5-10.1); Magnesium 1.7 mg/dl (1.7-2.4); Potassium 3.5 mmol/L (3.5-5.1)
[2022-11-07 06:59] LABS: BUN Creatinine Ratio 7.6 (10-20); Creatinine Clr Calc Pharmacy 32.8 ml/min; Est GFR (African American) 38.6 ml/min; Est GFR (Non-African American) 33.3 ml/min
[2022-11-07 07:03] LABS: Ferritin 72.5 ng/ml (8-388)
[2022-11-07] MEDS: FERROUS GLUCONATE 324 MG TAB PO SCH (09:04)
[2022-11-07] MEDS: MAGNESIUM OXIDE 400 MG TAB PO SCH (09:05)
[2022-11-07] MEDS: OXcarbazepine 150 MG TABLET PO SCH ×2 (09:05→21:55)
[2022-11-07] MEDS: CYANOCOBALAMIN (B-12) 100 MCG TABLET PO SCH (09:05)
[2022-11-07] MEDS: OXYBUTYNIN CHLORIDE 5 MG TAB PO SCH (09:05)
[2022-11-07] MEDS: PANTOprazole 40 MG TAB PO SCH ×2 (09:05→21:55)
[2022-11-07] MEDS: FOLIC ACID 1 MG TAB PO SCH (09:05)
[2022-11-07] MEDS: METOPROLOL SUCC 25MG EXT REL TAB PO SCH (09:06)
[2022-11-07] MEDS: INSULIN ASPART PER UNIT SC SCH ×4 (09:09→21:02)
[2022-11-07] MEDS: FLUTICASONE FUROATE 100MCG 14 PUFFS/INHALER INH SCH (09:10)
[2022-11-07] MEDS: ADVANCED PROBIOTIC 1250 MG CAPSULE PO SCH (09:10)
[2022-11-07] MEDS: UMECLIDINIUM/VILANTEROL 62.5/25MCG 7 PUFFS/INHALER INH SCH (09:10)
[2022-11-07] MEDS: D5W AND 1/2NSS 1,000 ML IV SCH (09:11)
--- NOTE | 2022-11-07 10:23 | XRay Report ---
KUB CLINICAL HISTORY: still w/ left cva tender/slow improvement/?collect COMPARISON STUDY: CT of the abdomen and pelvis March or 27/01/2023. FINDINGS: No evidence for a bowel obstruction. Cholecystectomy clips are incidentally noted. Multiple bilateral renal calculi are present. No ureteral calculi identified. IMPRESSION: 1. Bilateral nephrolithiasis. 2. No ureteral calculi. ACT 112: Negative or not required by law. Electronically signed by: Abdirashid Motta M.D. 11/07/2022 10:22 AM
[2022-11-07] MEDS: cefTRIAXone SODIUM 2,000 MG in DEXTROSE 5% 50 ML IV SCH (12:30)
[2022-11-07] MEDS: DAPTOmycin 500 MG in SYRINGE 0 ML IV SCH (12:31)
[2022-11-07] MEDS: MoRPHine SULFATE 4 MG/ML 1 ML CARP\\VIAL IV PRN ×2 (12:34→20:02)
--- NOTE | 2022-11-07 13:53 | Hospitalist Progress Note ---
Date of Service November 07, 2022 Assessment & Plan (1) Acute pyelonephritis: Plan 67-year-old lady with PMH of DM2, HTN, bilateral nephrolithiasis with left ureteral stent, CKD stage IV [baseline creatinine 1.3-2], COPD, CALI, chronic respiratory failure on 2 L, tremors, VRE UTI admitted 11/02 with worsening ambulatory dysfunction and left pyelonephritis. She is being managed for the following: Acute left pyelonephritis Nausea, vomiting Patient presented with generalized weakness, left-sided flank pain. History of left ureteral stent, status post removal 01/2022. History of VRE and Klebsiella UTI. Admitting CTAP with moderate dilatation of the left renal pelvis and mild left hydroureter with left collecting system urothelial thickening with adjacent stranding. This is suggestive of left pyelitis with possible associated pyelonephritis. Bladder wall thickening with adjacent stranding. This could reflect cystitis. Bilateral nephrolithiasis. No ureteral calculi. Admitting urine culture, contaminant. Admitting blood culture, no growth so far, follow-up. F/u urine Cx, pending. Low-grade fever at admission, has been afebrile since then but a one spike of elevated temp measurement on 11/05 evening. Continue with Dapto and Rocephin 11/02 --ID evaled, will adjust antibiotic with ID recommendation after urine culture results are finalized. Urology evaluated, no acute intervention, supports conservative management. f/u uro as op Patient reports no further nausea and vomiting and has been able to eat food better. Can DC IV fluids, advance diet as tolerated. PERRI over CKD: Admitting creatinine of 2.23, baseline creatinine 1.3-2.0, likely secondary to dehydration from nausea and vomiting, monitor BMP in a.m., avoid nephrotoxic. Cr baseline. Ambulatory dysfunction: Per patient, she uses walker and cane at home, PT/OT eval. Chronic respiratory failure on 2 L: At baseline oxygen requirement. Other chronic medical conditions: DM type II, HTN, COPD, bipolar disorder --- resume home meds as able DVT prophylaxis: Subcu heparin DNR/DNI Dispo: pending improvement in pt's LLQ pain/N/V; PT/OT eval (?SNF/?HH), CM to assist w/ DC plan. Admission and Anticipated Discharge Date Admission Date: November 02, 2022 Subjective Patient seen and examined at bedside as a follow-up of acute pyelonephritis and PERRI over CKD stage IV. Patient was lying in bed, on room air, NAD, reports improving left flank pain/nausea/vomiting. Appetite better, can dc ivf. Patient denies dizziness or chest pain or feeling of heart racing, or other ROS. Overall, she believes she is moving in a positive direction. Physical Exam Physical Exam: GENERAL: Alert and oriented x3. NAD, on 2 L nasal cannula. Obese class III. appears chronically weak/ill. HEENT: No pallor, no icterus. Pupils equal, round and reactive to light. Oral mucosa moist. NECK: No JVD, no neck masses. HEART: S1 and S2 heard. Regular rate and rhythm. No murmur, no gallop. RESPIRATORY SYSTEM: Normal AP diameter. No accessory muscle use. No wheezing, no crackles. ABDOMEN: Soft, bowel sounds present, left lower abdominal mild tenderness -- improving. Left CVA angle tenderness -- improving. CENTRAL NERVOUS SYSTEM: No facial droop. Speech is clear. Obeys simple commands. Moves extremities. EXTREMITIES: No edema, no erythema seen. Results & Data Results & Data ([facility]) Vital Signs (Past 12 Hours) Vital Signs Temp Pulse Pulse Resp BP BP Pulse Ox 11/07/22 12:10 37.1 C 87 16 117/69 97 11/07/22 11:50 11/07/22 08:00 73 11/07/22 08:03 37.0 C 78 16 94/64 L 93 11/07/22 02:38 37 C 79 18 103/71 94 O2 Del Method O2 Flow Rate 11/07/22 12:10 Nasal Cannula 2 11/07/22 11:50 Nasal Cannula 2 11/07/22 08:00 11/07/22 08:03 Nasal Cannula 2 11/07/22 02:38 Nasal Cannula 2
[2022-11-07] MEDS: ONDANSETRON INJ 2 MG/ML 2 ML VIAL IV PRN (17:26)
[2022-11-07] MEDS: METOPROLOL SUCC 50MG EXT REL TAB PO SCH (20:14)
[2022-11-08] MEDS: HEPARIN SOD 5,000 UNIT/0.5 ML VIAL SQ SCH ×3 (05:55→21:00)
[2022-11-08] MEDS: MoRPHine SULFATE 4 MG/ML 1 ML CARP\\VIAL IV PRN ×2 (06:00→22:08)
[2022-11-08] MEDS: METOPROLOL SUCC 25MG EXT REL TAB PO SCH (08:31)
[2022-11-08] MEDS: OXYBUTYNIN CHLORIDE 5 MG TAB PO SCH (08:38)
[2022-11-08] MEDS: OXcarbazepine 150 MG TABLET PO SCH ×2 (08:38→21:00)
[2022-11-08] MEDS: MAGNESIUM OXIDE 400 MG TAB PO SCH (08:38)
[2022-11-08] MEDS: PANTOprazole 40 MG TAB PO SCH ×2 (08:38→20:59)
[2022-11-08] MEDS: CYANOCOBALAMIN (B-12) 100 MCG TABLET PO SCH (08:39)
[2022-11-08] MEDS: FERROUS GLUCONATE 324 MG TAB PO SCH (08:39)
[2022-11-08] MEDS: FOLIC ACID 1 MG TAB PO SCH (08:39)
[2022-11-08] MEDS: ADVANCED PROBIOTIC 1250 MG CAPSULE PO SCH (08:39)
[2022-11-08] MEDS: INSULIN ASPART PER UNIT SC SCH ×4 (08:41→21:01)
[2022-11-08] MEDS: UMECLIDINIUM/VILANTEROL 62.5/25MCG 7 PUFFS/INHALER INH SCH (08:42)
[2022-11-08] MEDS: FLUTICASONE FUROATE 100MCG 14 PUFFS/INHALER INH SCH (08:42)
[2022-11-08] MEDS: cefTRIAXone SODIUM 2,000 MG in DEXTROSE 5% 50 ML IV SCH (12:07)
[2022-11-08] MEDS: DAPTOmycin 500 MG in SYRINGE 0 ML IV SCH (13:42)
[2022-11-08] MEDS ORDERED: DICLOFENAC SOD 1% GEL 100 GM TUBE EXT PRN (13:56)
--- NOTE | 2022-11-08 15:10 | Hospitalist Progress Note ---
Date of Service November 08, 2022 Assessment & Plan (1) Acute pyelonephritis: Plan 67-year-old lady with PMH of DM2, HTN, bilateral nephrolithiasis with left ureteral stent, CKD stage IV [baseline creatinine 1.3-2], COPD, CALI, chronic respiratory failure on 2 L, tremors, VRE UTI admitted 11/02 with worsening ambulatory dysfunction and left pyelonephritis. She is being managed for the following: Acute left pyelonephritis Nausea, vomiting Patient presented with generalized weakness, left-sided flank pain. History of left ureteral stent, status post removal 01/2022. History of VRE and Klebsiella UTI. Admitting CTAP with moderate dilatation of the left renal pelvis and mild left hydroureter with left collecting system urothelial thickening with adjacent stranding. This is suggestive of left pyelitis with possible associated pyelonephritis. Bladder wall thickening with adjacent stranding. This could reflect cystitis. Bilateral nephrolithiasis. No ureteral calculi. Admitting urine culture, contaminant. Admitting blood culture, no growth so far, follow-up. F/u urine Cx, no growth Low-grade fever at admission, has been afebrile since then but a spike of elevated temp measurement on 11/05 evening. Continue with Dapto and Rocephin 11/02 -- 11/08 zyvox and keflex; Atb therapy for total of 14 days. Urology evaluated, no acute intervention, supports conservative management. f/u uro as op Patient reports no further nausea and vomiting and has been able to eat food better. LLQ pain better, still w/ some cva tender, r/o msk pain, will apply voltaren gel. Pt eating better, will dc on oral atb. PERRI over CKD: Admitting creatinine of 2.23, baseline creatinine 1.3-2.0, likely secondary to dehydration from nausea and vomiting, monitor BMP in a.m., avoid nephrotoxic. Cr baseline. Ambulatory dysfunction: Per patient, she uses walker and cane at home, PT/OT eval. Chronic respiratory failure on 2 L: At baseline oxygen requirement. Other chronic medical conditions: DM type II, HTN, COPD, bipolar disorder --- resume home meds as able DVT prophylaxis: Subcu heparin DNR/DNI Dispo: PT/OT eval (?SNF/?HH), CM to assist w/ DC plan. Admission and Anticipated Discharge Date Admission Date: November 02, 2022 Subjective Patient seen and examined at bedside as a follow-up of acute pyelonephritis and PERRI over CKD stage IV. Patient was sitting up in chair, on room air, NAD, reports improving left flank pain. Denies nausea, vomiting. Appetite better. Patient denies dizziness or chest pain or feeling of heart racing, or other ROS. Reports feeling better. Physical Exam Physical Exam: GENERAL: Alert and oriented x3. NAD, on 2 L nasal cannula. Obese class III. appears chronically weak/ill. HEENT: No pallor, no icterus. Pupils equal, round and reactive to light. Oral mucosa moist. NECK: No JVD, no neck masses. HEART: S1 and S2 heard. Regular rate and rhythm. No murmur, no gallop. RESPIRATORY SYSTEM: Normal AP diameter. No accessory muscle use. No wheezing, no crackles. ABDOMEN: Soft, bowel sounds present, left lower abdominal exam - no facial grimaccing noted. Left CVA angle tenderness -- improving. CENTRAL NERVOUS SYSTEM: No facial droop. Speech is clear. Obeys simple commands. Moves extremities. EXTREMITIES: No edema, no erythema seen. Results & Data Results & Data ([facility]) Vital Signs (Past 12 Hours) Vital Signs Temp Pulse Pulse Resp BP BP Pulse Ox 11/08/22 11:35 36.8 C 104 H 18 139/71 93 11/08/22 08:45 11/08/22 08:04 37.0 C 86 16 83/45 L 88/58 L 94 11/08/22 07:08 90 11/08/22 03:26 36.7 C 95 H 18 94/63 L 94 O2 Del Method O2 Flow Rate 11/08/22 11:35 Nasal Cannula 2 11/08/22 08:45 Nasal Cannula 2 11/08/22 08:04 Nasal Cannula 2 11/08/22 07:08 11/08/22 03:26 Nasal Cannula 2
[2022-11-08] MEDS: LINEZOLID 600 MG TAB PO SCH (17:07)
[2022-11-08] MEDS: cephALEXin 500 MG CAP PO SCH (17:07)
[2022-11-08] MEDS: METOPROLOL SUCC 50MG EXT REL TAB PO SCH (20:59)
[2022-11-09] MEDS: cephALEXin 500 MG CAP PO SCH ×2 (00:07→08:49)
[2022-11-09] MEDS: LINEZOLID 600 MG TAB PO SCH ×2 (03:53→16:03)
[2022-11-09] MEDS ORDERED: ACETAMINOPHEN 1,000 MG/100 ML VIAL IV STA (04:52)
[2022-11-09 06:28] LABS: Creatinine Clr Calc Pharmacy 26.6 ml/min; Est GFR (African American) 30.6 ml/min; Est GFR (Non-African American) 26.4 ml/min
[2022-11-09] MEDS: HEPARIN SOD 5,000 UNIT/0.5 ML VIAL SQ SCH ×2 (06:42→13:03)
[2022-11-09] MEDS: INSULIN ASPART PER UNIT SC SCH ×2 (08:47→12:40)
[2022-11-09] MEDS: UMECLIDINIUM/VILANTEROL 62.5/25MCG 7 PUFFS/INHALER INH SCH (08:48)
[2022-11-09] MEDS: FLUTICASONE FUROATE 100MCG 14 PUFFS/INHALER INH SCH (08:48)
[2022-11-09] MEDS: MAGNESIUM OXIDE 400 MG TAB PO SCH (08:48)
[2022-11-09] MEDS: OXcarbazepine 150 MG TABLET PO SCH (08:48)
[2022-11-09] MEDS: CYANOCOBALAMIN (B-12) 100 MCG TABLET PO SCH (08:48)
[2022-11-09] MEDS: ONDANSETRON INJ 2 MG/ML 2 ML VIAL IV PRN (08:48)
[2022-11-09] MEDS: FERROUS GLUCONATE 324 MG TAB PO SCH (08:48)
[2022-11-09] MEDS: FOLIC ACID 1 MG TAB PO SCH (08:48)
[2022-11-09] MEDS: ADVANCED PROBIOTIC 1250 MG CAPSULE PO SCH (08:49)
[2022-11-09] MEDS: METOPROLOL SUCC 25MG EXT REL TAB PO SCH (08:49)
[2022-11-09] MEDS: PANTOprazole 40 MG TAB PO SCH (08:49)
[2022-11-09] MEDS: OXYBUTYNIN CHLORIDE 5 MG TAB PO SCH (08:49)
--- NOTE | 2022-11-09 12:55 | Discharge Summary ---
Date of Service November 09, 2022 Admission HPI Per Admitting Provider 67-year-old female with PMH DM type II, dyslipidemia, COPD with chronic hypoxic respiratory failure on 2 L of oxygen, CALI, HTN, diastolic dysfunction, CKD stage IV, bipolar disorder, history of colon cancer s/p resection, history of renal calculi, and other problems listed below who presents the ED for evaluation of generalized weakness and left-sided back pain. Patient reports she has been feeling sick for the past couple weeks. Patient was suspicious she had a UTI or kidney stone. She reports associated nausea and a few episodes of vomiting. Denies dysuria and hematuria. No hematemesis or coffee-ground emesis. Denies fevers and chills. No chest pain or shortness of breath. Denies lightheadedness, dizziness, diaphoresis, syncopal events. In the ED, patient was found to have a low-grade fever 37.7, mildly tachycardic. No leukocytosis, lactic acid normal. Found to have PERRI with creatinine 2.2 (baseline around 1.5). UA suggestive of UTI. CT ABD/pelvis shows interval development of moderate dilatation of the left renal pelvis and mild left hydroureter with left collecting system urothelial thickening with adjacent stranding. This suggest left pyelitis with possible associated pyelonephritis. Bladder wall thickening with adjacent stranding. This could reflect cystitis. Bilateral nephrolithiasis. No ureteral calculi. Patient was given IV ceftriaxone, IV daptomycin, IV morphine, IV Zofran, IVF. Admission Exam Per Admitting Provider Mild distress, Obese pt, NC in place Lungs: CTA, no wheezing or crackles Cardiac: normal S1/S2, no murmur Abd: Obese abd, diffuse TTP, soft MSK: no edema Psych: AAOx3, normal affect Principal Diagnosis Acute left pyelonephritis Discharge Exam GENERAL: Alert and oriented x3. NAD, on 2 L nasal cannula. Obese class III. HEENT: No pallor, no icterus. Pupils equal, round and reactive to light. Oral mucosa moist. NECK: No JVD, no neck masses. HEART: S1 and S2 heard. Regular rate and rhythm. No murmur, no gallop. RESPIRATORY SYSTEM: Normal AP diameter. No accessory muscle use. No wheezing, no crackles. ABDOMEN: Soft, bowel sounds present, left lower abdominal exam - none tender Left CVA angle tenderness -- none CENTRAL NERVOUS SYSTEM: No facial droop. Speech is clear. Obeys simple commands. Moves extremities. EXTREMITIES: No edema, no erythema seen. Discharge Data Allergies Allergy/AdvReac Type Severity Reaction Status Date / Time fentanyl Allergy Severe itching/felt Verified 11/02/22 14:35 like throat closing salicylates Allergy Severe SHORTNESS Verified 11/02/22 14:35 OF BREATH Iodinated Contrast Media Allergy Intermediate EYES Verified 11/02/22 14:35 SWELLING/Hives amoxicillin [From Augmentin] Allergy Mild Rash Verified 11/02/22 14:35 aspirin Allergy Mild FACIAL Verified 11/02/22 14:35 SWELLING clavulanic acid Allergy Mild Rash Verified 11/02/22 14:35 [From Augmentin] hydromorphone Allergy Mild RASH/ITCHIN Verified 11/02/22 14:35 G meperidine AdvReac Intermediate ITCH Verified 11/02/22 14:35 morphine AdvReac Intermediate ITCH Verified 11/02/22 14:35 tramadol AdvReac Mild itch Verified 11/02/22 14:35 Consultations 11/02/22 13:21 ED Decision to Admit Stat 11/02/22 14:23 Consult Urology Routine 11/04/22 11:06 Consult Infectious Diseases Routine Ordered Studies 11/02/22 11:22 CT abd pelvis wo con Stat Hospital Course (1) Acute pyelonephritis: Plan 67-year-old lady with PMH of DM2, HTN, bilateral nephrolithiasis with left ureteral stent, CKD stage IV [baseline creatinine 1.3-2], COPD, CALI, chronic respiratory failure on 2 L, tremors, VRE UTI admitted 11/02 with worsening ambulatory dysfunction and left pyelonephritis. She was managed for the following: Acute left pyelonephritis Nausea, vomiting Patient presented with generalized weakness, left-sided flank pain. History of left ureteral stent, status post removal 01/2022. History of VRE and Klebsiella UTI. Admitting CTAP with moderate dilatation of the left renal pelvis and mild left hydroureter with left collecting system urothelial thickening with adjacent stranding. This is suggestive of left pyelitis with possible associated pyelonephritis. Bladder wall thickening with adjacent stranding. This could reflect cystitis. Bilateral nephrolithiasis. No ureteral calculi. Admitting urine culture, contaminant. Admitting blood culture, no growth so far, follow-up. F/u urine Cx, no growth Low-grade fever at admission, has been afebrile since then but a spike of elevated temp measurement on 11/05 evening. Continue with Dapto and Rocephin 11/02 -- 11/08 zyvox and keflex; Atb therapy for total of 14 days. Urology evaluated, no acute intervention, supports conservative management. f/u uro as op Patient reports no further nausea and vomiting and has been able to eat food better. significant improvement of LLQ pain, no CVA tender. Pain Mx as per instruction in DC instruction set. PERRI over CKD: Admitting creatinine of 2.23, baseline creatinine 1.3-2.0, likely secondary to dehydration from nausea and vomiting, monitor BMP in a.m., avoid nephrotoxic. Cr baseline. Pt to get cmp done at pcp office in a week time. Ambulatory dysfunction: Per patient, she uses walker and cane at home, PT/OT eval. Chronic respiratory failure on 2 L: At baseline oxygen requirement. Other chronic medical conditions: DM type II, HTN, COPD, bipolar disorder --- resume home meds as able DNR/DNI With physical therapy recommendation, patient is being discharged to home with home health with following instructions: Follow-up with your primary care physician within 1 week time and likely you will need labs CBC/CMP [important]/magnesium/phosphorus. Follow-up with your urology doctor as an outpatient in 1 to 2 weeks time. Continue to take your antibiotics as prescribed without break, to complete the course. For your pain you can use [id number] Tylenol for mild pain, topical Voltaren gel every 6 hours as needed for mild to moderate pain, or you can use over the counter 4% Lidoderm patch for mild to moderate pain. For your severe pain, you have been prescribed oxycodone for few days worth, if your pain is not improving, you will need further evaluation by your primary care office for pain management/prescription. Because your iron level/vitamin B12 level/folate levels were on the lower side, you have been started on supplements. You will need their levels rechecked in about 3 months and coordinate the same with your primary care office upon discharge. Take your medications as prescribed. Maintain adequate fluid intake. Please make sure that you are able to get your medications today by calling your pharmacy before you leave the hospital so that your treatment continuity is not broken. Home Health Attestation I certify that this patient is under my care and that I, or a physicians family readiness support assistant working with me, had a face to-face encounter that meets the home health [id number] encounter requirements with this patient. The encounter with the patient was in whole, or in part, for the following medical condition, which is the primary reason for home health care (list medical condition): pyelonephritis I certify that, based on my findings, the following services are medically necessary home health services: My clinical findings support the need for the above services because: Medication Compliance and Monitoring Effective of New Medications OT Assess ADL Status and Restore Function w ADLs PT Gait and Balance Training, Strengthening and Safety Skilled Nsg Assessment Skilled Nsg Assess Pt Illness, Disease and Sx Monitoring S/S to Report to Provider Further, I certify that my clinical findings support that this patient is homebound (i.e. absences from home require considerable and taxing effort and are for medical reasons or jainism services or infrequently or of short duration when for other reasons) because: Supportive Aid - Walker Transportation Assistance/Unable to Leave Home Unassisted Certification for Home Health Services: Based on the above findings, I certify that this patient is confined to the home and needs intermittent mcc care, physical therapy and/or speech therapy or continues to need occupational therapy. The patient is under my care, and I have initiated the establishment of the plan of care. This patient will be followed by a physician who will periodically review the plan of care. Total Time Total Time Spent Total Time Spent (In Minutes): 50 Discharge Plan Discharge Items Patient Disposition: Home - Home Health Services Reason For Visit: PYELONEPHRITIS Discharge Diagnosis: Acute left pyelonephritis Activity: Resume your previous activity Non-emergency contact: Primary Care Provider Call non-emergency contact if: you have any medication questions, your symptoms worsen, your pain is not controlled, your pain is worsening and your temperature is above 101 Follow-up/Referrals: Lo Chand DO [Primary Care Provider] - Diet: Carb Consistent or DM2 and Heart Healthy Addtl Attending Provider Instructions: Follow-up with your primary care physician within 1 week time and likely you will need labs CBC/CMP [important]/magnesium/phosphorus. Follow-up with your urology doctor as an outpatient in 1 to 2 weeks time. Continue to take your antibiotics as prescribed without break, to complete the course. For your pain you can use [id number] Tylenol for mild pain, topical Voltaren gel every 6 hours as needed for mild to moderate pain, or you can use over the counter 4% Lidoderm patch for mild to moderate pain. For your severe pain, you have been prescribed oxycodone for few days worth, if your pain is not improving, you will need further evaluation by your primary care office for pain management/prescription. Because your iron level/vitamin B12 level/folate levels were on the lower side, you have been started on supplements. You will need their levels rechecked in about 3 months and coordinate the same with your primary care office upon discharge. Take your medications as prescribed. Maintain adequate fluid intake. Please make sure that you are able to get your medications today by calling your pharmacy before you leave the hospital so that your treatment continuity is not broken. Pending Studies at Discharge: No Stand-Alone Forms: My [facility] [employer], Smoking Cessation Medications and DC Order Prescriptions: New cephalexin 250 mg Capsule 250 mg PO Q8H 7 Days Qty: 21 0RF linezolid 600 mg Tablet 600 mg PO Q12H 7 Days Qty: 14 0RF ferrous gluconate 324 mg (38 mg iron) Tablet 324 mg PO QAM Qty: 30 0RF acetaminophen 325 mg Tablet 650 mg PO Q8H PRN (Reason: fever or pain) Qty: 60 0RF diclofenac sodium [Voltaren Arthritis Pain] 1 % Gel 4 g EXT Q6H PRN (Reason: mild to mod pain x left flank) 7 Days Qty: 100 0RF Rx Instructions: apply over left flank region as needed for pain every 6 hours. Advanced Probiotic 625 mg (10 billion cell) Capsule 2 cap PO DAILY 10 Days Qty: 20 0RF cyanocobalamin (vitamin B-12) [Vitamin B-12] 100 mcg Tablet 100 mcg PO QAM Qty: 30 0RF folic acid 1 mg Tablet 1 mg PO QAM Qty: 30 0RF ondansetron 4 mg tablet,disintegrating 4 mg PO Q8H PRN (Reason: nausea and vomiting) Qty: 30 0RF oxycodone 5 mg tablet 5 mg PO Q8H PRN (Reason: pain) 5 Days Qty: 15 0RF Continued ondansetron 4 mg tablet,disintegrating 4 mg PO Q8H PRN (Reason: nausea and vomiting) Qty: 10 0RF metoprolol succinate 50 mg tablet extended release 24 hr 50 mg PO HS Label Comments: Take 1 (50mg) tablet in AM Trelegy Ellipta 100-62.5-25 mcg blister with device 1 inh inhalation DAILY PRN (Reason: Shortness Of Breath) Label Comments: Inhale 1 puff PO daily albuterol sulfate 90 mcg/actuation Hfa Aerosol Inhaler 2 puff INHALATION Q4H PRN (Reason: Shortness Of Breath) atorvastatin [Lipitor] 40 mg Tablet 40 mg PO QPM pantoprazole [Protonix] 40 mg Tablet,Delayed Release (Dr/Ec) 40 mg PO BID riboflavin (vitamin B2) 400 mg Tablet 400 mg PO QPM cholecalciferol (vitamin D3) [Vitamin D3] 2,000 unit Capsule 2,000 unit PO QAM Label Comments: Patient has not taken medications for a while (05/25) oxcarbazepine 300 mg tablet 300 mg PO BID metoprolol succinate 50 mg tablet extended release 24 hr 25 mg PO DAILY magnesium oxide 400 mg (241.3 mg magnesium) tablet 400 mg PO DAILY oxybutynin chloride 5 mg tablet 5 mg PO DAILY hydroxyzine HCl 10 mg tablet 10 mg PO HS glipizide [Glucotrol XL] 2.5 mg tablet extended release 24hr 2.5 mg PO DAILY loperamide 2 mg Capsule 2 mg PO TID PRN (Reason: diarrhea) Qty: 30 0RF Discharge Orders: Discharge Order (Routine); Ordered 11/09/22 Ordered By: Arie Covarrubias Admission Data Admit Date/Time: 11/02/22 13:57 Attending Provider: Arie Covarrubias Admit Provider: Jodie El Primary Care Provider: Lo Chand Other Providers: Jodie El ; Gianfranco Mota ; Arlene Leavitt ; Cyrus Jo I. ; Donell Kee II ; Maribel Sanders ; Francisco Javier Wray ; Martin Lambert ; Doroteo Parisi ; [facility]
[2022-11-09] MEDS ORDERED: cephALEXin 250 MG CAP PO SCH (16:00)
== END 2022-11-09 17:25 | disposition home health service (06) | DRG 690 ==
LOC: ED 10:47 → SUATTDRO 13:57 → 2W 13:57

== ENCOUNTER 2022-11-17 10:20 | Inpatient (IN) ==
[2022-11-17] MEDS ORDERED: SODIUM CHLORIDE 0.9% 1000ML 1,000 ML IV ONE (10:36)
[2022-11-17] MEDS ORDERED: ONDANSETRON INJ 2 MG/ML 2 ML VIAL IV STA (10:36)
[2022-11-17] MEDS ORDERED: cefTRIAXone SODIUM 2,000 MG/70 ML BAG IV STA (10:39)
--- NOTE | 2022-11-17 10:43 | Emergency Department Note ---
Impression & Plan Acute pyelonephritis, PERRI (acute kidney injury), Vomiting ED Provider Note NAME: NAYELI GUERRERO AGE: 67 SEX: F : 1955 ARRIVES VIA: Ambulance INFORMANT: Patient ED PROVIDER(S): Edy Bone DO CHIEF COMPLAINT: abdominal pain HPI: Patient is a 63-year-old female with a past medical history of PERRI, diabetes, CKD, colon cancer, bipolar who presents to the ER for nausea, vomiting, and diarrhea which has been going on for the past 2 days. Admits to dysuria, urgency, and frequency which has been going on for the past several weeks. Denies any headache or change in vision. No chest pain or shortness of breath. Belly pain is diffuse and persistent since discharge. PAST MEDICAL HISTORY:See Below PAST SURGICAL HISTORY:See Below FAMILY HISTORY:See Below SOCIAL HISTORY:See Below HOME MEDICATIONS:See Below ALLERGIES:See Below VITALS:See Below PHYSICAL EXAMINATION: GENERAL: Sitting up in bed, alert, disheveled, nontoxic EYE EXAM: normal conjunctiva. OROPHARYNX: no exudate, no erythema, lips, buccal mucosa, and tongue normal and mucous membranes are moist NECK: supple, no nuchal rigidity, no adenopathy, non-tender LUNGS: Clear to auscultation. Normal chest wall mechanics HEART: no murmurs, S1 normal and S2 normal ABDOMEN: abdomen soft, non-tender, normo-active bowel sounds, no masses, no rebound or guarding. UPPER EXTREMITIES: upper extremities are grossly normal. LOWER EXTREMITIES: No pitting edema. NEURO EXAM: Normal sensorium, cranial nerves II-XII grossly intact, normal speech, no gross weakness of arms, no gross weakness of legs. MEDICAL DECISION MAKING: Patient is a 67-year-old female who presents to the ER for abdominal pain asso ciated with nausea vomiting and recent admission and discharge for pyelonephritis. She grew out Klebsiella and VRE. IV was established blood work was obtained. Labs show white count of 15,000. No significant anemia. BMP with acute kidney injury with a creatinine of 3 up from baseline of 1.9. P otassium was elevated 5.2. LFTs bilirubin was unremarkable. Lipase was normal. UA was contaminated. Patient was given Dapto and Rocephin due to previous sensitivities which were reviewed. External records reviewed. COVID was negative. CT abdomen pelvis is consistent with the Pylo. Discussed with the hospitalist patient was updated at bedside and admitted for further work-up. Triage Nursing notes reviewed. Limited review of prior medical records performed Vital Signs: reviewed and remarkable for no significant abnormalities Differential diagnosis: Differential diagnoses includes but is not limited to gastritis, peptic ulcer disease, GERD, gallbladder disease, pancreatitis, small bowel obstruction, appendicitis, diverticulitis, hernia, urinary tract infection, torsion, perforation, trauma, infectious. ER treatment provided: See below Diagnostics interpreted by me include EKG and cardiac monitoring as listed below: -Cardiac Monitoring: An order was placed for continuous cardiac monitoring. The monitor shows a rate of 80 with sinus rhythm. -ECG: none -Laboratory studies:Interpreted by me as stated above in MDM and shown below. Imaging studies: Xrays: As interpreted by me:none CTs show: CT abdomen pelvis per my read shows no obvious obstruction. CT abdomen pelvis per radiology shows hydronephrosis with questionable pyelitis on the left Consultation(s): Discussed with the hospitalist for further evaluation Procedures:none Critical Care: None Past Med/Surg History Medical History (Updated 11/17/22 @ 15:23 by NICHOL Rosas) Anxiety Asthma well controlled per pt, rare inh use Bipolar disorder Chronic back pain Chronic headaches Chronic renal insufficiency stage 3, following with [facility] nephrology ([place]) Chronic respiratory failure with hypoxia CKD (chronic kidney disease), stage III COPD (chronic obstructive pulmonary disease) Deep vein thrombosis LLE - COULD NOT RECALL DATE - REPORTS SHE WAS TREATED AT [facility] W/ BLOOD THINNERS Depression DM type 2 (diabetes mellitus, type 2) GERD (gastroesophageal reflux disease) History of colon cancer 2012 S/P BOWEL RESECTION. History of COVID-27 Sep 2020 HTN (hypertension) Hyperlipidemia Kidney stone Myocardial Infarction 06/2016--> [facility] -- CARDIAC CATH --> normal coronary anatomy without coronary obstruction but Plavix started per [facility] discharge summary On anticoagulant therapy plavix daily CALI (obstructive sleep apnea) Poor historian Renal colic s/p L ureteral stent 10/2021 followed by lithotripsy, stone extraction and stent exchange 11/2021 Renal cyst 7 cm thick walled as of early 2021 Takotsubo cardiomyopathy History of in 2015 with return to normal LV function Surgical History H/O hand surgery RIGHT History of appendectomy History of bilateral cataract extraction History of blepharoplasty History of cardiac cath 03/2018 - [facility] - DENIES STENTS/ANGIOPLASTY - [facility] - FOLLOWS W/ DR. TORRES History of closure of ileostomy History of colectomy due to colon cancer History of colonoscopy History of cystoscopy History of esophageal dilatation History of esophagogastroduodenoscopy (EGD) History of hysterectomy History of kidney surgery at age 9 yrs "something was wrong and had to fix it" History of lithotripsy History of tooth extraction History of total abdominal hysterectomy and bilateral salpingo-oophorectomy Hx of cholecystectomy Family History (Updated 11/17/22 @ 13:47 by Taylor Hayden PA-C) Other Breast cancer Colorectal cancer Social History Smoking Status: Never smoker Second Hand Exposure: No; Hx Alcohol Use: No Hx Substance Use: No Preferred Language: Romanian Communication Ability: Effective Visual Impairment: No Limitations Hearing Ability: Normal 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 Feels Safe at Home: Yes Assistive Devices: Bedside Commode, Cane, Oxygen - Continuous, Walker and Wheelchair Allergies Allergies Allergy/AdvReac Type Severity Reaction Status Date / Time fentanyl Allergy Severe itching/felt Verified 11/02/22 14:35 like throat closing salicylates Allergy Severe SHORTNESS Verified 11/02/22 14:35 OF BREATH Iodinated Contrast Media Allergy Intermediate EYES Verified 11/02/22 14:35 SWELLING/Hives amoxicillin [From Augmentin] Allergy Mild Rash Verified 11/02/22 14:35 aspirin Allergy Mild FACIAL Verified 11/02/22 14:35 SWELLING clavulanic acid Allergy Mild Rash Verified 11/02/22 14:35 [From Augmentin] hydromorphone Allergy Mild RASH/ITCHIN Verified 11/02/22 14:35 G meperidine AdvReac Intermediate ITCH Verified 11/02/22 14:35 morphine AdvReac Intermediate ITCH Verified 11/02/22 14:35 tramadol AdvReac Mild itch Verified 11/02/22 14:35 Home Meds Home Medications Medication Instructions Recorded Confirmed atorvastatin 40 mg tablet (Lipitor) 40 mg PO QPM 07/12/18 11/17/22 pantoprazole 40 mg tablet,delayed 40 mg PO BID 07/12/18 11/17/22 release (Protonix) riboflavin (vitamin B2) 400 mg 400 mg PO QPM 07/12/18 11/17/22 tablet cholecalciferol (vitamin D3) 50 2,000 unit PO QAM 05/16/19 11/17/22 mcg (2,000 unit) capsule (Vitamin D3) albuterol sulfate 90 mcg/actuation 2 puff inhalation Q4H PRN 07/21/19 11/17/22 aerosol inhaler Shortness Of Breath fluticasone fur. 100 mcg-umeclid 1 inh inhalation DAILY 12/11/20 11/17/22 62.5 mcg-vilant 25 mcg inhalat.powder (Trelegy Ellipta) metoprolol succinate 50 mg 50 mg PO HS 12/11/20 11/17/22 tablet,extended release 24 hr glipizide 2.5 mg tablet, extended 2.5 mg PO DAILY 04/29/21 11/17/22 release 24 hr (Glucotrol XL) oxcarbazepine 300 mg tablet 300 mg PO BID 12/22/21 11/17/22 hydroxyzine HCl 10 mg tablet 10 mg PO HS 11/02/22 11/17/22 magnesium oxide 400 mg (241.3 mg 400 mg PO DAILY 11/02/22 11/17/22 magnesium) tablet metoprolol succinate 50 mg 25 mg PO DAILY 11/02/22 11/17/22 tablet,extended release 24 hr oxybutynin chloride 5 mg tablet 5 mg PO DAILY 11/02/22 11/17/22 Previous Rx's Medication Instructions Recorded loperamide 2 mg capsule 2 mg PO TID PRN diarrhea #30 caps 01/18/22 L.acidop,casei,lactis,rham-B.lact,natalia 2 cap PO DAILY 10 days #20 caps 11/09/22 625 mg (10 billion cell) capsule (Advanced Probiotic) acetaminophen 325 mg tablet 650 mg PO Q8H PRN fever or pain 11/09/22 #60 tabs cyanocobalamin (vitamin B-12) 100 100 mcg PO QAM #30 tabs 11/09/22 mcg tablet (Vitamin B-12) ferrous gluconate 324 mg (38 mg 324 mg PO QAM #30 tabs 11/09/22 iron) tablet folic acid 1 mg tablet 1 mg PO QAM #30 tabs 11/09/22 ondansetron 4 mg disintegrating 4 mg PO Q8H PRN nausea and 11/09/22 tablet vomiting #30 tabs Results & Data (ED) Vital Signs Vital Signs - 24 hr 11/17/22 10:25 11/17/22 10:36 11/17/22 11:00 Temperature 36.9 C Temperature Source Oral Pulse Rate 72 Pulse Rate [Right Finger] 78 Pulse Rhythm Regular Pulse Rhythm [Right Finger] Regular Pulse Strength Normal Pulse Strength [Right Finger] Normal Respiratory Rate 22 18 Respiratory Effort / Characteristics Non-Labored Non-Labored Respiratory Depth Normal Normal Respiratory Pattern Regular Regular Blood Pressure 160/113 H Blood Pressure [Right Arm] 160/113 H Blood Pressure Mean 128 Blood Pressure Mean [Right Arm] 128 Blood Pressure Position Lying Blood Pressure Position [Right Arm] Lying Pulse Oximetry 98 97 Oxygen Delivery Method Room Air Room Air Room Air Oxygen Flow Rate Sepsis Recent Fever Within 48 Hours No Sepsis New/Unexplained Change in Mental Status No Sepsis Action Taken by Nursing No Action Required 11/17/22 13:00 Temperature Temperature Source Pulse Rate Pulse Rate [Right Finger] 73 Pulse Rhythm Pulse Rhythm [Right Finger] Regular Pulse Strength Pulse Strength [Right Finger] Normal Respiratory Rate 20 Respiratory Effort / Characteristics Non-Labored Respiratory Depth Normal Respiratory Pattern Regular Blood Pressure Blood Pressure [Right Arm] 116/80 Blood Pressure Mean Blood Pressure Mean [Right Arm] 92 Blood Pressure Position Blood Pressure Position [Right Arm] Lying Pulse Oximetry 100 Oxygen Delivery Method Nasal Cannula Oxygen Flow Rate 2 Sepsis Recent Fever Within 48 Hours Sepsis New/Unexplained Change in Mental Status Sepsis Action Taken by Nursing Laboratory Data 11/17/22 10:25 11/17/22 10:25 Lab Results 11/17/22 11/17/22 11/17/22 Range/Units 10:25 10:25 10:32 WBC 15.26 H (4.8-10.8) K/ul RBC 4.18 L (4.20-5.40) M/uL Hgb 12.7 (12.0-16.0) g/dl Hct 41.5 (37.0-47.0) % MCV 99.3 (80.0-100.0) fL MCH 30.4 (25.0-34.0) pg MCHC 30.6 L (32.0-36.0) g/dL RDW Std Deviation 46.0 (36.4-46.3) fL RDW Coeff of Teresa 12.7 (11.5-14.5) % Plt Count 328 (130-400) K/uL MPV 10.2 (9.4-12.4) fL Immature Gran % (Auto) 0.5 % Neut % (Auto) 71.1 % Lymph % (Auto) 13.0 % Emanuel % (Auto) 5.4 % Eos % (Auto) 9.5 % Baso % (Auto) 0.5 % Neut # (Auto) 10.86 H (1.40-6.50) K/uL Lymph # (Auto) 1.98 (1.2-3.4) K/uL Emanuel # (Auto) 0.83 H (0.11-0.59) K/uL Eos # (Auto) 1.45 H (0-0.50) K/uL Baso # (Auto) 0.07 (0-0.2) K/uL Immature Gran # (Auto) 0.07 (0.01-0.20) K/uL Sodium 138 (136-145) mmol/L Potassium 5.2 H (3.5-5.1) mmol/L Chloride 108 H (98-107) mmol/L Carbon Dioxide 22 (21-32) mmol/L Anion Gap 8 (3-11) BUN 35 H (6-23) mg/dl Creatinine 2.93 H (0.6-1.2) mg/dl Est Cr Clr Drug Dosing 17.4 ml/min Est GFR ( Amer) 18.1 ml/min Est GFR (Non-Af Amer) 15.7 ml/min BUN/Creatinine Ratio 11.9 (10-20) Glucose 115 H (70-99(Fasting)) mg/dl Calcium 10.4 H (8.5-10.1) mg/dl Total Bilirubin 0.4 (0.2-1.0) mg/dl AST 13 (13-39) U/L ALT 12 (7-52) U/L Alkaline Phosphatase 128 H (34-104) U/L Total Protein 8.9 H (6.0-8.3) gm/dl Albumin 4.6 (3.4-5.0) gm/dl Globulin 4.3 H (2.5-4.0) gm/dl Albumin/Globulin Ratio 1.1 (0.9-2) Lipase 92 H (11-82) U/L Urine Color Yellow Urine Appearance Turbid A (Clear) Urine pH 5.5 (4.5-7.5) Ur Specific Sabael 1.022 (1.000-1.030) Urine Protein 2+ H (Negative) Urine Glucose (UA) Negative (Negative) Urine Ketones Negative (Negative) Urine Blood 3+ H (Negative) Urine Nitrite Negative (Negative) Urine Bilirubin Negative (Negative) Urine Urobilinogen Negative (Negative) Ur Leukocyte Esterase 2+ H (Negative) Urine WBC (Auto) >30 H (0-5) /hpf Urine RBC (Auto) >30 H (0-4) /hpf U Hyaline Cast (Auto) 1-5 (0-5) /lpf U Epithel Cells (Auto) >30 H (0-5) /lpf Urine Bacteria (Auto) Negative (Negative) SARS-CoV-2, RNA, NAAT (NEGATIVE) 11/17/22 Range/Units 12:25 WBC (4.8-10.8) K/ul RBC (4.20-5.40) M/uL Hgb (12.0-16.0) g/dl Hct (37.0-47.0) % MCV (80.0-100.0) fL MCH (25.0-34.0) pg MCHC (32.0-36.0) g/dL RDW Std Deviation (36.4-46.3) fL RDW Coeff of Teresa (11.5-14.5) % Plt Count (130-400) K/uL MPV (9.4-12.4) fL Immature Gran % (Auto) % Neut % (Auto) % Lymph % (Auto) % Emanuel % (Auto) % Eos % (Auto) % Baso % (Auto) % Neut # (Auto) (1.40-6.50) K/uL Lymph # (Auto) (1.2-3.4) K/uL Emanuel # (Auto) (0.11-0.59) K/uL Eos # (Auto) (0-0.50) K/uL Baso # (Auto) (0-0.2) K/uL Immature Gran # (Auto) (0.01-0.20) K/uL Sodium (136-145) mmol/L Potassium (3.5-5.1) mmol/L Chloride (98-107) mmol/L Carbon Dioxide (21-32) mmol/L Anion Gap (3-11) BUN (6-23) mg/dl Creatinine (0.6-1.2) mg/dl Est Cr Clr Drug Dosing ml/min Est GFR ( Amer) ml/min Est GFR (Non-Af Amer) ml/min BUN/Creatinine Ratio (10-20) Glucose (70-99(Fasting)) mg/dl Calcium (8.5-10.1) mg/dl Total Bilirubin (0.2-1.0) mg/dl AST (13-39) U/L ALT (7-52) U/L Alkaline Phosphatase (34-104) U/L Total Protein (6.0-8.3) gm/dl Albumin (3.4-5.0) gm/dl Globulin (2.5-4.0) gm/dl Albumin/Globulin Ratio (0.9-2) Lipase (11-82) U/L Urine Color Urine Appearance (Clear) Urine pH (4.5-7.5) Ur Specific Sabael (1.000-1.030) Urine Protein (Negative) Urine Glucose (UA) (Negative) Urine Ketones (Negative) Urine Blood (Negative) Urine Nitrite (Negative) Urine Bilirubin (Negative) Urine Urobilinogen (Negative) Ur Leukocyte Esterase (Negative) Urine WBC (Auto) (0-5) /hpf Urine RBC (Auto) (0-4) /hpf U Hyaline Cast (Auto) (0-5) /lpf U Epithel Cells (Auto) (0-5) /lpf Urine Bacteria (Auto) (Negative) SARS-CoV-2, RNA, NAAT NEGATIVE (NEGATIVE) Administered Medications Daptomycin 500 mg/ Syringe 10 mls @ 5 mls/min IV Q24H MARLA; Protocol Stop: 11/19/22 10:44 Last Admin: 11/17/22 12:11 Dose: 5 mls/min Documented By: AP Discontinued Medications Acetaminophen (Acetaminophen 325 Mg Tab) 650 mg PO NOW STA Stop: 11/17/22 11:37 Last Admin: 11/17/22 12:11 Dose: Not Given Documented By: ZACHARY Sodium Chloride (Nss 1000ml) 1,000 mls @ 999 mls/hr IV .Q1H1M ONE Stop: 11/17/22 11:36 Last Infusion: 11/17/22 12:06 Dose: 0 mls/hr Documented By: Admin: 11/17/22 11:12 Dose: 999 mls/hr Documented By: ZACHARY Ceftriaxone Sodium (Rocephin) 2,000 mg in 70 mls @ 140 mls/hr IV NOW STA Stop: 11/17/22 11:08 Last Infusion: 11/17/22 12:06 Dose: 0 mls/hr Documented By: Admin: 11/17/22 11:12 Dose: 140 mls/hr Documented By: ZACHARY Ondansetron HCl (Ondansetron Inj 2 Mg/Ml 2 Ml Vial) 4 mg IV NOW STA Stop: 11/17/22 10:37 Last Admin: 11/17/22 11:12 Dose: 4 mg Documented By: ZACHARY Oxycodone HCl (Oxycodone Hcl Ir 5 Mg Tab (Immediate Release)) 5 mg PO NOW STA Stop: 11/17/22 13:30 Last Admin: 11/17/22 14:32 Dose: 5 mg Documented By: JEISON Imaging Data Radiologist's Impression: Abdomen/Pelvis CT 11/17/22 10:[address] WITHOUT CONTRAST CT DOSE: 624.04 mGy.cm HISTORY: abd pain and vomiting TECHNIQUE: Multiaxial CT images of the abdomen and pelvis were performed without contrast. A dose lowering technique was utilized adhering to the principles of ALARA. COMPARISON STUDY: Abdomen and pelvis CT 11/02/2022. FINDINGS: The lung bases are essentially clear. No pneumoperitoneum. No pneumatosis. Old, healed left-sided rib fractures again noted. There is a moderate hiatus hernia, unchanged. Cholecystectomy. The unenhanced liver, spleen, adrenal glands, and pancreas are unremarkable. Mild right and moderate left cortical renal atrophy again noted. There are multiple left renal calculi, unchanged. Stable calcification within the right kidney which may also represent a renal stone. The bladder is decompressed. There is bladder wall thickening with adjacent fat stranding, unchanged. No ureteral stones. Stable dilatation of the left renal pelvis with associated urothelial thickening and fat stranding. Stable 6 cm hypodense lesion within the upper pole the left kidney which favors a cyst. No retroperitoneal lymphadenopathy. Normal caliber abdominal aorta. Prior hysterectomy. Prior subtotal colectomy. No bowel wall thickening or obstruction. Small midline ventral hernia containing a knuckle small bowel. Mild left hydroureter remain stable. IMPRESSION: 1. No significant change in the moderate dilatation of the left renal pelvis and mild left hydroureter with urothelial thickening of the left renal collecting system and adjacent fat stranding. This suggests a pyelitis with possible associated pyelonephritis. 2. Bladder wall thickening and adjacent fat stranding favors a cystitis. This is also unchanged. 3. Bilateral nephrolithiasis. No ureteral calculi. 4. Additional findings as described above. ACT 112: Negative or not required by law. Electronically signed by: Marcell Marquez M.D. 11/17/2022 11:17 AM Discharge Plan Visit Data Chief Complaint: Abnormal Labs/Diagnostic Testing Stated Complaint: AB PAIN, ABNORMAL LABS, NAUSEA, VOMITING ED Provider: Edy Bone Discharge Problem: Acute pyelonephritis, PERRI (acute kidney injury), Vomiting Forms Stand Alone Forms: My [facility] Poppin Prescriptions Prescriptions: No Action metoprolol succinate 50 mg tablet extended release 24 hr 50 mg PO HS Label Comments: Take 1 (50mg) tablet in AM Trelegy Ellipta 100-62.5-25 mcg blister with device 1 inh inhalation DAILY Label Comments: Inhale 1 puff PO daily albuterol sulfate 90 mcg/actuation Hfa Aerosol Inhaler 2 puff INHALATION Q4H PRN (Reason: Shortness Of Breath) atorvastatin [Lipitor] 40 mg Tablet 40 mg PO QPM pantoprazole [Protonix] 40 mg Tablet,Delayed Release (Dr/Ec) 40 mg PO BID riboflavin (vitamin B2) 400 mg Tablet 400 mg PO QPM cholecalciferol (vitamin D3) [Vitamin D3] 2,000 unit Capsule 2,000 unit PO QAM Label Comments: Patient has not taken medications for a while (05/25) oxcarbazepine 300 mg tablet 300 mg PO BID metoprolol succinate 50 mg tablet extended release 24 hr 25 mg PO DAILY magnesium oxide 400 mg (241.3 mg magnesium) tablet 400 mg PO DAILY oxybutynin chloride 5 mg tablet 5 mg PO DAILY hydroxyzine HCl 10 mg tablet 10 mg PO HS ferrous gluconate 324 mg (38 mg iron) Tablet 324 mg PO QAM Qty: 30 0RF acetaminophen 325 mg Tablet 650 mg PO Q8H PRN (Reason: fever or pain) Qty: 60 0RF Advanced Probiotic 625 mg (10 billion cell) Capsule 2 cap PO DAILY 10 Days Qty: 20 0RF cyanocobalamin (vitamin B-12) [Vitamin B-12] 100 mcg Tablet 100 mcg PO QAM Qty: 30 0RF folic acid 1 mg Tablet 1 mg PO QAM Qty: 30 0RF ondansetron 4 mg tablet,disintegrating 4 mg PO Q8H PRN (Reason: nausea and vomiting) Qty: 30 0RF glipizide [Glucotrol XL] 2.5 mg tablet extended release 24hr 2.5 mg PO DAILY loperamide 2 mg Capsule 2 mg PO TID PRN (Reason: diarrhea) Qty: 30 0RF Referrals Referrals: Lo Chand DO [Primary Care Provider] -
[2022-11-17] MEDS ORDERED: DAPTOmycin 500 MG in SYRINGE 0 ML IV SCH (10:45)
[2022-11-17 11:13] LABS: Appearance Urine Turbid (Clear); Bacteria Urine Automated Negative (Negative); Bilirubin Urine Negative (Negative); Blood Urine 3+ (Negative); Color Urine Yellow; Epithelial Cell Urine Auto >30 /lpf (0-5); Glucose Urine UA Negative (Negative); Ketones Urine Negative (Negative); Leukocyte Esterase Urine 2+ (Negative); Nitrite Urine Negative (Negative); Protein Urine 2+ (Negative); RBC Urine Automated >30 /hpf (0-4); Specific Gravity Urine 1.022 (1.000-1.030); Urobilinogen Urine Negative (Negative); WBC Urine Automated >30 /hpf (0-5); pH Urine 5.5 (4.5-7.5)
[2022-11-17 11:16] LABS: Basophils # (auto) 0.07 K/uL (0-0.2); Basophils % (auto) 0.5 %; Eosinophils # (auto) 1.45 K/uL (0-0.50); Eosinophils % (auto) 9.5 %; Hematocrit (blood only) 41.5 % (37.0-47.0); Hemoglobin 12.7 g/dl (12.0-16.0); Immature Granulocytes # (auto) 0.07 K/uL (0.01-0.20); Immature Granulocytes % (auto) 0.5 %; Lymphocytes # (auto) 1.98 K/uL (1.2-3.4); Mean Corpuscular Hemoglobin 30.4 pg (25.0-34.0); Mean Corpuscular Hgb Conc 30.6 g/dL (32.0-36.0); Mean Corpuscular Volume 99.3 fL (80.0-100.0); Mean Platelet Volume 10.2 fL (9.4-12.4); Monocytes # (auto) 0.83 K/uL (0.11-0.59); Monocytes % (auto) 5.4 %; Neutrophils # (auto) 10.86 K/uL (1.40-6.50); Neutrophils % (auto) 71.1 %; Platelet Count 328 K/uL (130-400); RDW Coefficient of Variation 12.7 % (11.5-14.5); Red Blood Count 4.18 M/uL (4.20-5.40); White Blood Count 15.26 K/ul (4.8-10.8)
--- NOTE | 2022-11-17 11:18 | CT Scan Report ---
ABDOMEN AND PELVIS CT WITHOUT CONTRAST CT DOSE: 624.04 mGy.cm HISTORY: abd pain and vomiting TECHNIQUE: Multiaxial CT images of the abdomen and pelvis were performed without contrast. A dose lo wering technique was utilized adhering to the principles of ALARA. COMPARISON STUDY: Abdomen and pelvis CT 11/02/2022. FINDINGS: The lung bases are essentially clear. No pneumoperitoneum. No pneumatosis. Old, healed left -sided rib fractures again noted. There is a moderate hiatus hernia, unchanged. Cholecystectomy. The unenhanced liver, spleen, adrenal glands, and pancreas are unremarkable. Mild right and moderate left cortical renal atrophy again noted. There are multiple left renal calculi, unchanged. Stable calcifi cation within the right kidney which may also represent a renal stone. The bladder is decompressed. T here is bladder wall thickening with adjacent fat stranding, unchanged. No ureteral stones. Stable di latation of the left renal pelvis with associated urothelial thickening and fat stranding. Stable 6 c m hypodense lesion within the upper pole the left kidney which favors a cyst. No retroperitoneal lymp hadenopathy. Normal caliber abdominal aorta. Prior hysterectomy. Prior subtotal colectomy. No bowel w all thickening or obstruction. Small midline ventral hernia containing a knuckle small bowel. Mild le ft hydroureter remain stable. IMPRESSION: 1. No significant change in the moderate dilatation of the left renal pelvis and mild left hydrourete r with urothelial thickening of the left renal collecting system and adjacent fat stranding. This sug gests a pyelitis with possible associated pyelonephritis. 2. Bladder wall thickening and adjacent fat stranding favors a cystitis. This is also unchanged. 3. Bilateral nephrolithiasis. No ureteral calculi. 4. Additional findings as described above. ACT 112: Negative or not required by law. Electronically signed by: Marcell Marquez M.D. 11/17/2022 11:17 AM
[2022-11-17 11:23] LABS: Albumin Globulin Ratio 1.1 (0.9-2); Albumin Level 4.6 gm/dl (3.4-5.0); BUN Creatinine Ratio 11.9 (10-20); Bilirubin,Total 0.4 mg/dl (0.2-1.0); Calcium 10.4 mg/dl (8.5-10.1); Creatinine Clr Calc Pharmacy 17.4 ml/min; Est GFR (African American) 18.1 ml/min; Est GFR (Non-African American) 15.7 ml/min; Globulin 4.3 gm/dl (2.5-4.0); Potassium 5.2 mmol/L (3.5-5.1); Total Protein 8.9 gm/dl (6.0-8.3)
[2022-11-17] MEDS ORDERED: ACETAMINOPHEN 325 MG TAB PO STA (11:36)
--- NOTE | 2022-11-17 12:10 | History & Physical Report ---
Date of Service November 17, 2022 Assessment & Plan (1) PERRI (acute kidney injury): (2) CKD (chronic kidney disease), stage IV: Plan: Patient is 67-year-old female with PMH HTN, DM II, CKD IV, COPD, asthma, chronic respiratory failure with hypoxia on chronic 2 L oxygen, CALI, GERD, bipolar disorder, history of colon cancer s/p resection, history of renal calculi,history ureteral stent removal 01/2022, History of VRE and Klebsiella UTI in past, presented to ER for abnormal renal function labs. Recent admission for pyelonephritis, PERRI. Outpatient labs on 11/15/2022 with Cr of 2.4. Cr:2.2 on admission 11/02/2022 that trended down to 1.9 on dc on 11/09/2022. Baseline Cr: ~1.5 BUN: 35, Cr: 2.9. K: 5.2 -In ER given 1L NSS -Repeat BMP today -Gentle IVF -Monitor renal functions, avoid nephrotoxic agents when possible -Consider nephrology consult if not improving (3) Pyelonephritis: Plan: 11/02/22 Admission for pyelonephritis, at that time negative blood cultures and urine culture with multiple organisms probable skin agnes. Was treated with Rocephin, daptomycin. ID recommended treating Keflex and Zyvox for total of 14 days and Urology felt no intervention warranted. Patient was discharged on Keflex and Zyvox. Pt finished Keflex and Zyvox on 11/16/22 with continued left flank tenderness and urinary frequency and dysuria. Denies fevers Today in ER patient afebrile, vital stable. WBC: 15. UA suggestive UTI CT abdomen pelvis: No significant change in the moderate dilatation of the left renal pelvis and mild left hydroureter with urothelial thickening of the left renal collecting system and adjacent fat stranding. This suggests a pyelitis with possible associated pyelonephritis. Bladder wall thickening and adjacent fat stranding favors a cystitis. This is also unchanged. Bilateral nephrolithiasis. No ureteral calculi. -In ER given daptomycin, Rocephin -Urine culture pending -Blood cultures pending, obtained after antibiotics administered -Morphine prn severe pain -Continue Rocephin, daptomycin -ID consult -Urology consult -CBC in a.m. (4) Hyperkalemia: Plan: K: 5.2 -Repeat BMP this afternoon (5) DM type 2 (diabetes mellitus, type 2): Plan: A1c: 5.4 on 11/03/2022 -Hold home glycemic agents -NovoLog sliding scale per protocol (6) Hypertension: Plan: - Continue metoprolol succinate (7) Hyperlipidemia: Plan: - Hold atorvastatin as receiving daptomycin (8) COPD (chronic obstructive pulmonary disease): (9) Chronic respiratory failure with hypoxia: Plan: On chronic 2 L oxygen No signs of exacerbation -Continue chronic 2 L oxygen via nasal cannula -Continue home inhalers (10) CALI (obstructive sleep apnea): Plan: - Not using CPAP (11) Bipolar disorder: Plan: - Continue home medication DVT Prophylaxis -Heparin SQ Conditional code: Wants CPR, defibrillation, meds, Does NOT want intubation, mechanical ventilation as per discussion with pt Follows with Dr Chand for routine care Pt was seen and care coordinated with Dr Harris. See addendum I spent a total of 76 minutes reviewing notes, outpatient records, labs, medication, coordinating, documenting and providing care for this patient excluding time spent in the performance of separately billed services. (12) Eosinophilia: History of Present Illness Chief Complaint: Abnormal renal labs Primary Care Provider: Lo Chand DO Patient is 67-year-old female with PMH HTN, DM II, CKD IV, COPD, asthma, chronic respiratory failure with hypoxia on chronic 2 L oxygen, CALI, GERD, bipolar disorder, history of colon cancer s/p resection, history of renal calculi,history ureteral stent removal 01/2022, History of VRE and Klebsiella UTI in past, presented to ER for abnormal renal function labs. History obtained from patient, and inpatient and outpatient chart review. Patient with recent [facility] admission 11/02/2022-11/09/2022 for acute left pyelonephritis, nausea, vomiting, PERRI on CKD treated with Rocephin, daptomycin. 11/02/2022 urine culture was with More than 3 types organisms present, all low counts next probable skin agnes. She had Negative blood cultures. ID was consulted and recommended treating Keflex and Zyvox for total of 14 days since repeat urine culture inconclusive. Urology was consulted during hospitalization and no intervention warranted. Patient was discharged on Keflex and Zyvox. Patient states that she finished her oral antibiotics yesterday. Reports since hospitalization has had continued left flank and left groin tenderness. Reports continued urinary frequency and dysuria. Denies hematuria. Denies fever, diaphoresis. Reports is always cold. She states she has had ongoing nausea and vomiting with 3-4 episodes of vomiting daily. Patient states yesterday did not have vomiting however has vomited 3 times today. Reports has a chronic loose stools with 3-4 episodes a day secondary to her history of colon resection. Denies any increased or change in BMs. Has chronic cough in the morning which clears throughout the day. Walks with assistance of walker or cane. Denies hematemesis, hematochezia, melena, EWING, dizziness, syncope, vision changes, neck pain, CP, SOB, palpitations, sore throat, choking, otalgia, rhinorrhea, increased weakness, extremity edema, rashes. Had outpatient labs 11/15/2022 with Creatinine of 2.4. Creatinine was 2.2 on admission 11/02/2022 that trended down to 1.9 on discharge on 11/09/2022. She was referred to ER for further evaluation. Allergies Allergy/AdvReac Type Severity Reaction Status Date / Time fentanyl Allergy Severe itching/felt Verified 11/02/22 14:35 like throat closing salicylates Allergy Severe SHORTNESS Verified 11/02/22 14:35 OF BREATH Iodinated Contrast Media Allergy Intermediate EYES Verified 11/02/22 14:35 SWELLING/Hives amoxicillin [From Augmentin] Allergy Mild Rash Verified 11/02/22 14:35 aspirin Allergy Mild FACIAL Verified 11/02/22 14:35 SWELLING clavulanic acid Allergy Mild Rash Verified 11/02/22 14:35 [From Augmentin] hydromorphone Allergy Mild RASH/ITCHIN Verified 11/02/22 14:35 G meperidine AdvReac Intermediate ITCH Verified 11/02/22 14:35 morphine AdvReac Intermediate ITCH Verified 11/02/22 14:35 tramadol AdvReac Mild itch Verified 11/02/22 14:35 Home Medications Medication Instructions Recorded Confirmed Type atorvastatin 40 mg tablet (Lipitor) 40 mg PO QPM 07/12/18 11/17/22 History pantoprazole 40 mg tablet,delayed 40 mg PO BID 07/12/18 11/17/22 History release (Protonix) riboflavin (vitamin B2) 400 mg 400 mg PO QPM 07/12/18 11/17/22 History tablet cholecalciferol (vitamin D3) 50 2,000 unit PO QAM 05/16/19 11/17/22 History mcg (2,000 unit) capsule (Vitamin D3) albuterol sulfate 90 mcg/actuation 2 puff inhalation Q4H PRN 07/21/19 11/17/22 History aerosol inhaler Shortness Of Breath fluticasone fur. 100 mcg-umeclid 1 inh inhalation DAILY 12/11/20 11/17/22 History 62.5 mcg-vilant 25 mcg inhalat.powder (Trelegy Ellipta) metoprolol succinate 50 mg 50 mg PO HS 12/11/20 11/17/22 History tablet,extended release 24 hr glipizide 2.5 mg tablet, extended 2.5 mg PO DAILY 04/29/21 11/17/22 History release 24 hr (Glucotrol XL) oxcarbazepine 300 mg tablet 300 mg PO BID 12/22/21 11/17/22 History loperamide 2 mg capsule 2 mg PO TID PRN diarrhea #30 caps 01/18/22 11/17/22 Rx hydroxyzine HCl 10 mg tablet 10 mg PO HS 11/02/22 11/17/22 History magnesium oxide 400 mg (241.3 mg 400 mg PO DAILY 11/02/22 11/17/22 History magnesium) tablet metoprolol succinate 50 mg 25 mg PO DAILY 11/02/22 11/17/22 History tablet,extended release 24 hr oxybutynin chloride 5 mg tablet 5 mg PO DAILY 11/02/22 11/17/22 History L.acidop,casei,lactis,rham-B.lact,natalia 2 cap PO DAILY 10 days #20 caps 11/09/22 11/17/22 Rx 625 mg (10 billion cell) capsule (Advanced Probiotic) acetaminophen 325 mg tablet 650 mg PO Q8H PRN fever or pain 11/09/22 11/17/22 Rx #60 tabs cyanocobalamin (vitamin B-12) 100 100 mcg PO QAM #30 tabs 11/09/22 11/17/22 Rx mcg tablet (Vitamin B-12) ferrous gluconate 324 mg (38 mg 324 mg PO QAM #30 tabs 11/09/22 11/17/22 Rx iron) tablet folic acid 1 mg tablet 1 mg PO QAM #30 tabs 11/09/22 11/17/22 Rx ondansetron 4 mg disintegrating 4 mg PO Q8H PRN nausea and 11/09/22 11/17/22 Rx tablet vomiting #30 tabs Past Med/Surg History Medical History (Updated 11/17/22 @ 16:47 by Johanna Harris, DO) Anxiety Asthma well controlled per pt, rare inh use Bipolar disorder Chronic back pain Chronic headaches Chronic renal insufficiency stage 3, following with [facility] nephrology ([place]) Chronic respiratory failure with hypoxia CKD (chronic kidney disease), stage III COPD (chronic obstructive pulmonary disease) Deep vein thrombosis LLE - COULD NOT RECALL DATE - REPORTS SHE WAS TREATED AT [facility] W/ BLOOD THINNERS Depression DM type 2 (diabetes mellitus, type 2) GERD (gastroesophageal reflux disease) History of colon cancer 2012 S/P BOWEL RESECTION. History of COVID-27 Sep 2020 HTN (hypertension) Hyperlipidemia Kidney stone Myocardial Infarction 06/2016--> [facility] -- CARDIAC CATH --> normal coronary anatomy without coronary obstruction but Plavix started per [facility] discharge summary On anticoagulant therapy plavix daily CALI (obstructive sleep apnea) Poor historian Renal colic s/p L ureteral stent 10/2021 followed by lithotripsy, stone extraction and stent exchange 11/2021 Renal cyst 7 cm thick walled as of early 2021 Takotsubo cardiomyopathy History of in 2015 with return to normal LV function Surgical History H/O hand surgery RIGHT History of appendectomy History of bilateral cataract extraction History of blepharoplasty History of cardiac cath 03/2018 - [place] - DENIES STENTS/ANGIOPLASTY - [facility] - FOLLOWS W/ DR. TORRES History of closure of ileostomy History of colectomy due to colon cancer History of colonoscopy History of cystoscopy History of esophageal dilatation History of esophagogastroduodenoscopy (EGD) History of hysterectomy History of kidney surgery at age 9 yrs "something was wrong and had to fix it" History of lithotripsy History of tooth extraction History of total abdominal hysterectomy and bilateral salpingo-oophorectomy Hx of cholecystectomy Family History (Updated 11/17/22 @ 13:47 by Taylor Hayden PA-C) Other Breast cancer Colorectal cancer Social History Smoking Status: Never smoker Second Hand Exposure: No; Hx Alcohol Use: No Hx Substance Use: No Preferred Language: Lao Communication Ability: Effective Visual Impairment: No Limitations Hearing Ability: Normal Operational Communication Chief Required: No Beliefs That Will Affect Care: None marital status: Current Living Situation: Alone Current Living Situation Comment: Towers in [facility] Feels Safe at Home: Yes Assistive Devices: Bedside Commode, Cane, Oxygen - Continuous, Walker and Wheelchair Review of Systems Review of Systems: All systems reviewed & are unremarkable except as noted in HPI & below Physical Exam Physical Exam: General: no acute distress, chronic ill appearing, obese Head: normocephalic, atraumatic Eyes: conjunctiva non-injected, anicteric ENT: normal inspection external ears, nose, mucous membranes moist Neck: supple, trachea midline Lungs: clear, no respiratory distress on current 2L via NC, no wheezing/rhonchi/rales CV: RRR, no murmur, no pretibial edema Abd: normal BS, soft,+tenderness to palpation left CVA, left flank Ext: no cyanosis, no calf tenderness Neuro: A&O x 3, no focal deficits noted, normal affect Skin: warm, dry Results & Data Results & Data ([facility]) Vital Signs (Past 12 Hours) Vital Signs Temp Pulse Pulse Resp BP BP Pulse Ox 11/17/22 11:00 78 18 160/113 H 97 11/17/22 10:36 11/17/22 10:25 36.9 C 72 22 160/113 H 98 O2 Del Method 11/17/22 11:00 Room Air 11/17/22 10:36 Room Air 11/17/22 10:25 Room Air Laboratory Results Short CBC 11/17/22 Range/Units 10:25 WBC 15.26 H (4.8-10.8) K/ul Hgb 12.7 (12.0-16.0) g/dl Hct 41.5 (37.0-47.0) % Plt Count 328 (130-400) K/uL BMP 11/17/22 10:25 Sodium 138 Potassium 5.2 H Chloride 108 H Carbon Dioxide 22 BUN 35 H Creatinine 2.93 H Glucose 115 H Calcium 10.4 H Liver Function 11/17/22 Range/Units 10:25 Total Bilirubin 0.4 (0.2-1.0) mg/dl AST 13 (13-39) U/L ALT 12 (7-52) U/L Alkaline Phosphatase 128 H (34-104) U/L Albumin 4.6 (3.4-5.0) gm/dl Urine 11/17/22 Range/Units 10:32 Urine Color Yellow Urine Appearance Turbid A (Clear) Urine pH 5.5 (4.5-7.5) Ur Specific [place] 1.022 (1.000-1.030) Urine Protein 2+ H (Negative) Urine Glucose (UA) Negative (Negative) Diagnostic Findings Abdomen/Pelvis CT 11/17/22 10:[address] WITHOUT CONTRAST CT DOSE: 624.04 mGy.cm HISTORY: abd pain and vomiting TECHNIQUE: Multiaxial CT images of the abdomen and pelvis were performed without contrast. A dose lowering technique was utilized adhering to the principles of ALARA. COMPARISON STUDY: Abdomen and pelvis CT 11/02/2022. FINDINGS: The lung bases are essentially clear. No pneumoperitoneum. No pneumatosis. Old, healed left-sided rib fractures again noted. There is a moderate hiatus hernia, unchanged. Cholecystectomy. The unenhanced liver, spleen, adrenal glands, and pancreas are unremarkable. Mild right and moderate left cortical renal atrophy again noted. There are multiple left renal calculi, unchanged. Stable calcification within the right kidney which may also represent a renal stone. The bladder is decompressed. There is bladder wall thickening with adjacent fat stranding, unchanged. No ureteral stones. Stable dilatation of the left renal pelvis with associated urothelial thickening and fat stranding. Stable 6 cm hypodense lesion within the upper pole the left kidney which favors a cyst. No retroperitoneal lymphadenopathy. Normal caliber abdominal aorta. Prior hysterectomy. Prior subtotal colectomy. No bowel wall thickening or obstruction. Small midline ventral hernia containing a knuckle small bowel. Mild left hydroureter remain stable. IMPRESSION: 1. No significant change in the moderate dilatation of the left renal pelvis and mild left hydroureter with urothelial thickening of the left renal collecting system and adjacent fat stranding. This suggests a pyelitis with possible associated pyelonephritis. 2. Bladder wall thickening and adjacent fat stranding favors a cystitis. This is also unchanged. 3. Bilateral nephrolithiasis. No ureteral calculi. 4. Additional findings as described above. ACT 112: Negative or not required by law. Electronically signed by: Marcell Marquez M.D. 11/17/2022 11:17 AM ECG Rate (beats per minute): 74 Rhythm: sinus rhythm Additional Comments: no significant change from 11/02/22 Supervising Physician Co-Signing Physician Notes I have seen and examined the patient and have discussed the case with the provider above. I agree with the assessment and plan as stated with the following exceptions. Patient is a 67-year-old female who was recently admitted for pyelonephritis. She presents today with reports of vomiting and significant left groin pain radiating into her left flank. She denies eating for the last few days. She was sent home on antibiotics including Keflex and linezolid and reports completing this course. On physical exam she is ill-appearing and is holding her left lower abdomen. She has significant tenderness to palpation on her left abdomen and CVA tenderness on the left flank. Abdominal exam is otherwise soft. Lungs are clear to auscultation bilaterally and cardiac exam reveals S1-S2 heard with no evidence of murmurs. She is euvolemic to dry. There is no gross focal neurologic muscular deficit. Work-up in the ER includes a CBC with a white count of 15 K, H&H of 12.7/41.5, and normal platelets. There is a left shift on differential and an eosinophilia present. On chemistry, sodium is normal potassium is 5.2, chloride 108, bicarb 22, no anion gap, BUN 35 and creatinine 2.93. Baseline creatinine is 1.5. Calcium is 10.4 and LFTs are normal. Total protein is 8.9 and there is a mild globulin gap of 4.3 present. Urine sample does not reveal evidence of bacteria but pyuria, hematuria, leuk esterase and epis are present. In this clinical setting, persistent urinary tract infection/acute pyelonephritis is highly likely. Imaging of the abdomen pelvis included a CT without contrast showing persistent moderate dilation of the left renal pelvis and mild left hydroureter. There were multiple left renal calculi that are unchanged. There is a stable 6 mm hypodense lesion in the upper pole of the left kidney favoring a cyst with no retroperitoneal lymphadenopathy. 1. sepsis 2/2 acute pyelonephritis 2. Acute on chronic renal failure-multifactorial including pre-renal az otemia/ATN given reports of vomiting and poor PO intake vs obstruction given left dilation in renal pelvis. Urine studies are pending. 3. Eosinophilia-likely an adverse reaction to linezolid, allergic response, parasitic infection, malignancy are less likely causes. Repeat CBC with diff in am off linezolid. Check urine eos for evidence of AIN. Agree with plan above including broad spectrum antibiotics, pain and nausea control and IVF. Consulting urology for assistance with source control. Repeat BMP after fluids and consider consultation to nephrology if no improvement. DO Steven
[2022-11-17] MEDS ORDERED: oxyCODONE HCL IR 5 MG TAB (IMMEDIATE RELEASE) PO STA (13:29)
--- NOTE | 2022-11-17 14:14 | Electrocardiogram Report ---
Test Reason : Blood Pressure : / mmHG Vent. Rate : 069 BPM Atrial Rate : 069 BPM P-R Int : 176 ms QRS Dur : 058 ms QT Int : 350 ms P-R-T Axes : 008 -17 028 degrees QTc Int : 375 ms Normal sinus rhythm Possible Old Inferior infarct Poor R wave progression, consider anterior AR vs. lead placement vs. LVH Abnormal ECG When compared with ECG of 02-NOV-2022 13:48, Criteria for Inferior infarct is now Present Borderline Criteria for Anterior infarct now present Confirmed by Corey Contreras ([id number]) on 11/17/2022 2:13:41 PM Referred By: REFERRED SELF Confirmed By:Corey Contreras
--- NOTE | 2022-11-17 14:18 | Electrocardiogram Report ---
Test Reason : Blood Pressure : / mmHG Vent. Rate : 074 BPM Atrial Rate : 074 BPM P-R Int : 182 ms QRS Dur : 058 ms QT Int : 350 ms P-R-T Axes : 019 -02 058 degrees QTc Int : 388 ms Normal sinus rhythm Low voltage QRS Poor R wave progression, consider anterior HI vs. lead placement vs. LVH Abnormal ECG When compared with ECG of 17-NOV-2022 10:27, Criteria for Inferior infarct are no longer Present Confirmed by Corey Contreras ([id number]) on 11/17/2022 2:18:14 PM Referred By: REFERRED SELF Confirmed By:Corey Contreras
--- NOTE | 2022-11-17 15:29 | Urology Consultation ---
Date of Consultation November 17, 2022 Assessment & Plan (1) Pyelonephritis: (2) PERRI (acute kidney injury): (3) Flank pain: Plan 67yo/F with a history of kidney stones and recent admission for pyelonephritis and PERRI who presented to the ED today for abnormal renal function labs and admitted to medicine service. -CT a/p shows no significant change in the moderate dilation of the left renal pelvis/left hydroureter with urothelial thickening of the left renal collecting system, suggests a pyelitis with possible associated pyelonephritis. Bilateral nephrolithiasis, no obstructing stones noted. -She is afebrile and hemodynamically stable. -Labs show leukocytosis of 15.26, creatinine up to 2.93. Continue to monitor. -Urine and blood cultures pending. Recently finished outpatient course of Keflex and Zyvox on 11/16/22. -Received Dapto and Rocephin in the ED. Follow cultures and tailor as culture data becomes available. -Voiding spontaneously, continue to monitor. Bladder scan prn. -We discussed possible left ureteral stent placement as well as insertion of Hernandez catheter for maximum drainage of the urinary tract. Patient declines at this time as she has poorly tolerated both in the past. -For now, can continue conservative management with supportive care and anti biotic therapy. -If the patient fails to progress or acutely worsens, will revisit ureteral stent and hernandez placement. -NPO at midnight and will reassess in the morning. -Urology will follow. Supervising Physician Co-Signing Physician Notes Discussed patient with ELIZABETH. Agree with plan. Recommendation for suspected UTI and hydronephrosis would be stent, however patient declined. She has responded well to conservative measures and antibiotics in the past so not unreasonable to watch at this point. Would again discuss stent with patient if she were to clinically not improve. History of Present Illness History of Present Illness 67-year-old female with a PMHx including HTN, DM II, CKD IV, COPD, asthma, chronic respiratory failure with hypoxia on chronic 2 L oxygen, CALI, GERD, bipolar disorder, history of colon cancer s/p resection, history of renal calculi,history ureteral stent removal 01/2022, History of VRE and Klebsiella UTI in past who presented to the ED with abnormal renal function labs and ill feelings. Recent hospitalization 11/02/2022-11/09/2022 for acute left pyelonephritis, nausea, vomiting, PERRI on CKD treated with Rocephin, daptomycin. 11/02/2022 urine culture with more than 3 types organisms present, all low counts probable skin agnes. She had negative blood cultures. ID was consulted and recommended treating Keflex and Zyvox for total of 14 days since repeat urine culture inconclusive.Patient was discharged on Keflex and Zyvox. On arrival she was afebrile and hemodynamically stable. Labs show leukocytosis of 15.26, hemoglobin stable, creatinine 2.93. Urinalysis with 3+ blood, 2+ LE, negative bacteria, negative nitrate. A CT abdomen pelvis was obtained and noted no significant change in the moderate dilation of the left renal pelvis and mild left hydroureter with urothelial thickening of the left renal collecting system and adjacent fat stranding, suggests a pyelitis with possible pyelonephritis. Bladder wall thickening and adjacent fat stranding favoring cystitis. Bilateral nephrolithiasis, no ureteral calculi. Patient examined at bedside in the ED. Awake, resting in bed on arrival. No acute distress. Still with left flank and lower quadrant abdominal pain. No fevers. Voiding without issue. Denies hematuria. Some dysuria. She reports finishing her antibiotic course yesterday. Also notes since hospitalization she has had continued left flank pain, urinary frequency, and dysuria. She denies hematuria. Denies fevers. Also notes persistent nausea and vomiting. CT abdomen pelvis 11/17/2022- 1. No significant change in the moderate dilatation of the left renal pelvis and mild left hydroureter with urothelial thickening of the left renal collecting system and adjacent fat stranding. This suggests a pyelitis with possible associated pyelonephritis. 2. Bladder wall thickening and adjacent fat stranding favors a cystitis. This is also unchanged. 3. Bilateral nephrolithiasis. No ureteral calculi. 4. Additional findings as described above. Allergies Allergy/AdvReac Type Severity Reaction Status Date / Time fentanyl Allergy Severe itching/felt Verified 11/02/22 14:35 like throat closing salicylates Allergy Severe SHORTNESS Verified 11/02/22 14:35 OF BREATH Iodinated Contrast Media Allergy Intermediate EYES Verified 11/02/22 14:35 SWELLING/Hives amoxicillin [From Augmentin] Allergy Mild Rash Verified 11/02/22 14:35 aspirin Allergy Mild FACIAL Verified 11/02/22 14:35 SWELLING clavulanic acid Allergy Mild Rash Verified 11/02/22 14:35 [From Augmentin] hydromorphone Allergy Mild RASH/ITCHIN Verified 11/02/22 14:35 G meperidine AdvReac Intermediate ITCH Verified 11/02/22 14:35 morphine AdvReac Intermediate ITCH Verified 11/02/22 14:35 tramadol AdvReac Mild itch Verified 11/02/22 14:35 Home Medications Medication Instructions Recorded Confirmed Type atorvastatin 40 mg tablet (Lipitor) 40 mg PO QPM 07/12/18 11/17/22 History pantoprazole 40 mg tablet,delayed 40 mg PO BID 07/12/18 11/17/22 History release (Protonix) riboflavin (vitamin B2) 400 mg 400 mg PO QPM 07/12/18 11/17/22 History tablet cholecalciferol (vitamin D3) 50 2,000 unit PO QAM 05/16/19 11/17/22 History mcg (2,000 unit) capsule (Vitamin D3) albuterol sulfate 90 mcg/actuation 2 puff inhalation Q4H PRN 07/21/19 11/17/22 History aerosol inhaler Shortness Of Breath fluticasone fur. 100 mcg-umeclid 1 inh inhalation DAILY 12/11/20 11/17/22 History 62.5 mcg-vilant 25 mcg inhalat.powder (Trelegy Ellipta) metoprolol succinate 50 mg 50 mg PO HS 12/11/20 11/17/22 History tablet,extended release 24 hr glipizide 2.5 mg tablet, extended 2.5 mg PO DAILY 04/29/21 11/17/22 History release 24 hr (Glucotrol XL) oxcarbazepine 300 mg tablet 300 mg PO BID 12/22/21 11/17/22 History loperamide 2 mg capsule 2 mg PO TID PRN diarrhea #30 caps 01/18/22 11/17/22 Rx hydroxyzine HCl 10 mg tablet 10 mg PO HS 11/02/22 11/17/22 History magnesium oxide 400 mg (241.3 mg 400 mg PO DAILY 11/02/22 11/17/22 History magnesium) tablet metoprolol succinate 50 mg 25 mg PO DAILY 11/02/22 11/17/22 History tablet,extended release 24 hr oxybutynin chloride 5 mg tablet 5 mg PO DAILY 11/02/22 11/17/22 History L.acidop,casei,lactis,rham-B.lact,natalia 2 cap PO DAILY 10 days #20 caps 11/09/22 11/17/22 Rx 625 mg (10 billion cell) capsule (Advanced Probiotic) acetaminophen 325 mg tablet 650 mg PO Q8H PRN fever or pain 11/09/22 11/17/22 Rx #60 tabs cyanocobalamin (vitamin B-12) 100 100 mcg PO QAM #30 tabs 11/09/22 11/17/22 Rx mcg tablet (Vitamin B-12) ferrous gluconate 324 mg (38 mg 324 mg PO QAM #30 tabs 11/09/22 11/17/22 Rx iron) tablet folic acid 1 mg tablet 1 mg PO QAM #30 tabs 11/09/22 11/17/22 Rx ondansetron 4 mg disintegrating 4 mg PO Q8H PRN nausea and 11/09/22 11/17/22 Rx tablet vomiting #30 tabs Patient History Medical History (Updated 11/17/22 @ 16:47 by Johanna Harris, ) Anxiety Asthma well controlled per pt, rare inh use Bipolar disorder Chronic back pain Chronic headaches Chronic renal insufficiency stage 3, following with [facility] nephrology ([place]) Chronic respiratory failure with hypoxia CKD (chronic kidney disease), stage III COPD (chronic obstructive pulmonary disease) Deep vein thrombosis LLE - COULD NOT RECALL DATE - REPORTS SHE WAS TREATED AT [facility] W/ BLOOD THINNERS Depression DM type 2 (diabetes mellitus, type 2) GERD (gastroesophageal reflux disease) History of colon cancer 2012 S/P BOWEL RESECTION. History of COVID-27 Sep 2020 HTN (hypertension) Hyperlipidemia Kidney stone Myocardial Infarction 06/2016--> [facility] -- CARDIAC CATH --> normal coronary anatomy without coronary obstruction but Plavix started per [facility] discharge summary On anticoagulant therapy plavix daily CALI (obstructive sleep apnea) Poor historian Renal colic s/p L ureteral stent 10/2021 followed by lithotripsy, stone extraction and stent exchange 11/2021 Renal cyst 7 cm thick walled as of early 2021 Takotsubo cardiomyopathy History of in 2016 with return to normal LV function Surgical History H/O hand surgery RIGHT History of appendectomy History of bilateral cataract extraction History of blepharoplasty History of cardiac cath 03/2018 - CT - DENIES STENTS/ANGIOPLASTY - [facility] - FOLLOWS W/ DR. TORRES History of closure of ileostomy History of colectomy due to colon cancer History of colonoscopy History of cystoscopy History of esophageal dilatation History of esophagogastroduodenoscopy (EGD) History of hysterectomy History of kidney surgery at age 9 yrs "something was wrong and had to fix it" History of lithotripsy History of tooth extraction History of total abdominal hysterectomy and bilateral salpingo-oophorectomy Hx of cholecystectomy Family History (Updated 11/17/22 @ 13:47 by Taylor Hayden PA-C) Other Breast cancer Colorectal cancer Social History Smoking Status: Never smoker Second Hand Exposure: No; Hx Alcohol Use: No Hx Substance Use: No Preferred Language: Bangladeshi Communication Ability: Effective Visual Impairment: No Limitations Hearing Ability: Normal Land Leasing Examiner Required: No Beliefs That Will Affect Care: None marital status: Current Living Situation: Alone Current Living Situation Comment: [facility] Feels Safe at Home: Yes Assistive Devices: Bedside Commode, Cane, Oxygen - Continuous, Walker and Wheelchair Review of Systems Review of Systems: All systems reviewed & are unremarkable except as noted in HPI & below Physical Exam Constitutional: + obese; no acute distress Neck: normal visual inspection Respiratory: no respiratory distress and no labored breathing Gastrointestinal (Abdomen): Left flank/LLQ tenderness with palpation Musculoskeletal: Head/Neck/Chest: normocephalic Skin: No visible rashes or lesions to exposed skin areas Neurologic: awake Psychiatric: Orientation: alert and oriented x 3 Results & Data ([facility]) Vital Signs (Past 12 Hours) Vital Signs Temp Pulse Pulse Resp BP BP Pulse Ox 11/17/22 13:00 73 20 116/80 100 11/17/22 11:00 78 18 160/113 H 97 11/17/22 10:36 11/17/22 10:25 36.9 C 72 22 160/113 H 98 O2 Del Method O2 Flow Rate 11/17/22 13:00 Nasal Cannula 2 11/17/22 11:00 Room Air 11/17/22 10:36 Room Air 11/17/22 10:25 Room Air PG Care Time/CCT Total # of Minutes Spent Total Time Spent with Patient: Total time spent is greater than 50% in coordination of care (as documented) at patient's floor/unit and/or counseling patient: Coding Level of Care Code 70278 INT INP/OBS CARE 2/55MIN Diagnoses Pyelonephritis N12 PERRI (acute kidney injury) N17.9 Flank pain R10.9
[2022-11-17] MEDS ORDERED: GLUCOSE 40% GEL 15 GM TUBE PO PRN (16:20)
[2022-11-17] MEDS ORDERED: CARBOHYDRATES FOR HYPOGLYCEMIA PO PRN (16:20)
[2022-11-17] MEDS ORDERED: ALBUTEROL HFA 8 GM INHALER INH PRN (16:20)
[2022-11-17] MEDS ORDERED: DEXTROSE 50% 50 ML SYRINGE IV PRN (16:20)
[2022-11-17] MEDS ORDERED: GLUCAGON FOR INJ 1 MG VIAL SQ PRN (16:20)
[2022-11-17] MEDS ORDERED: POLYETHYLENE (MIRALAX) 17 GM PACK PO PRN (16:20)
[2022-11-17] MEDS ORDERED: HEPARIN SOD 5,000 UNIT/0.5 ML VIAL SQ SCH (16:20)
[2022-11-17] MEDS ORDERED: GLUCOSE 10 TAB/TUBE PO PRN (16:20)
[2022-11-17] MEDS ORDERED: MAGNESIUM HYDROXIDE SUSP 30 ML UDC PO PRN (16:20)
[2022-11-17] MEDS ORDERED: SODIUM CHLORIDE 0.9% 1000ML 1,000 ML IV SCH (16:20)
[2022-11-17] MEDS ORDERED: ACETAMINOPHEN 325 MG TAB PO PRN (16:20)
[2022-11-17] MEDS: INSULIN ASPART PER UNIT SC SCH ×2 (18:17→21:20)
[2022-11-17 19:16] LABS: BUN Creatinine Ratio 12.6 (10-20); Calcium 10.1 mg/dl (8.5-10.1); Creatinine Clr Calc Pharmacy 20.2 ml/min; Est GFR (African American) 21.7 ml/min; Est GFR (Non-African American) 18.7 ml/min; Potassium 4.6 mmol/L (3.5-5.1)
[2022-11-17] MEDS ORDERED: Nursing to Pharmacy Communication SCH ×3 (19:30→22:00)
[2022-11-17 20:54] LABS: Creatinine Urine Random 111.4 mg/dl
[2022-11-17] MEDS ORDERED: NON-FORMULARY MEDICATION (Riboflavin (Vitamin B2) 400 mg Tablet) PO SCH (21:00)
[2022-11-17] MEDS: MoRPHine SULFATE 2 MG/ML CARP IV PRN (21:20)
[2022-11-17] MEDS: hydrOXYzine HCl 10 MG TAB PO SCH (21:20)
[2022-11-17] MEDS: PANTOprazole 40 MG TAB PO SCH (21:21)
[2022-11-17] MEDS: METOPROLOL SUCC 50MG EXT REL TAB PO SCH (21:21)
[2022-11-17] MEDS: OXcarbazepine 150 MG TABLET PO SCH (21:21)
[2022-11-18] MEDS: MoRPHine SULFATE 2 MG/ML CARP IV PRN ×4 (03:07→21:52)
[2022-11-18] MEDS: HEPARIN SOD 5,000 UNIT/0.5 ML VIAL SQ SCH ×3 (03:08→17:45)
[2022-11-18] MEDS: ONDANSETRON INJ 2 MG/ML 2 ML VIAL IV PRN ×2 (03:12→10:04)
[2022-11-18] MEDS: INSULIN ASPART PER UNIT SC SCH ×3 (06:21→21:21)
[2022-11-18 09:00] LABS: Basophils # (auto) 0.04 K/uL (0-0.2); Basophils % (auto) 0.5 %; Eosinophils # (auto) 2.21 K/uL (0-0.50); Eosinophils % (auto) 26.9 %; Hemoglobin 10.1 g/dl (12.0-16.0); Immature Granulocytes # (auto) 0.02 K/uL (0.01-0.20); Immature Granulocytes % (auto) 0.2 %; Lymphocytes # (auto) 1.75 K/uL (1.2-3.4); Lymphocytes % (auto) 21.3 %; Mean Corpuscular Hemoglobin 30.1 pg (25.0-34.0); Mean Corpuscular Hgb Conc 30.6 g/dL (32.0-36.0); Mean Corpuscular Volume 98.5 fL (80.0-100.0); Mean Platelet Volume 10.1 fL (9.4-12.4); Monocytes # (auto) 0.61 K/uL (0.11-0.59); Monocytes % (auto) 7.4 %; Neutrophils # (auto) 3.59 K/uL (1.40-6.50); Neutrophils % (auto) 43.7 %; Platelet Count 195 K/uL (130-400); RDW Coefficient of Variation 12.8 % (11.5-14.5); RDW Standard Deviation 45.4 fL (36.4-46.3); Red Blood Count 3.35 M/uL (4.20-5.40); White Blood Count 8.22 K/ul (4.8-10.8)
[2022-11-18 09:27] LABS: Albumin Globulin Ratio 1.1 (0.9-2); Albumin Level 3.5 gm/dl (3.4-5.0); BUN Creatinine Ratio 12.6 (10-20); Bilirubin,Total 0.3 mg/dl (0.2-1.0); Creatinine Clr Calc Pharmacy 22.6 ml/min; Est GFR (African American) 25.2 ml/min; Est GFR (Non-African American) 21.8 ml/min; Globulin 3.3 gm/dl (2.5-4.0); Potassium 4.4 mmol/L (3.5-5.1); Total Protein 6.8 gm/dl (6.0-8.3)
[2022-11-18] MEDS: SODIUM CHLORIDE 0.9% 1000ML 1,000 ML IV SCH ×2 (09:55→18:54)
--- NOTE | 2022-11-18 10:02 | Urology Progress Note ---
Date of Service November 18, 2022 Assessment & Plan (1) Pyelonephritis: (2) PERRI (acute kidney injury): (3) Flank pain: Plan 67yo/F with a history of kidney stones and recent admission for pyelonephritis and PERRI who presented to the ED today for abnormal renal function labs and admit griselda to medicine service. -CT a/p shows no significant change in the moderate dilation of the left renal pelvis/left hydroureter with urothelial thickening of the left renal collecting system, suggests a pyelitis with possible associated pyelonephritis. Bilateral nephrolithiasis, no obstructing stones noted. -She is afebrile and hemodynamically stable. -Labs show leukocytosis improved, renal function downtrending. Continue to monitor. -Urine and blood cultures pending. On Dapto and Rocephin. Has grown yeast/ruben glabrata in the past. ID consulted. -Follow cultures and tailor as culture data becomes available. -Voiding spontaneously, external catheter in place. Bladder scan prn. -She has responded well to conservative measuresin the past. For now, can continue with supportive care and antibiotic therapy. -If the patient fails to progress or acutely worsens, can revisit ureteral stent and hernandez placement. -Discussed with hospital team. -Urology will follow. Admission and Anticipated Discharge Date Admission Date: November 17, 2022 Subjective Patient seen and examined at bedside this morning. She is resting in bed in no acute distress, arouses easily to her name. No acute issues overnight. She reports ongoing left abdominal and flank discomfort. She reports feeling cold overnight, but no fever or chills. Notes nausea at present, no vomiting. External catheter in place draining concentrated yellow urine. Review of Systems Constitutional: as per Subjective / HPI Gastrointestinal: as per Subjective / HPI Genitourinary: as per Subjective / HPI Physical Exam Constitutional: + obese; no acute distress Respiratory: no respiratory distress and no labored breathing Gastrointestinal (Abdomen): Left flank/LLQ tenderness with palpation Musculoskeletal: Head/Neck/Chest: normocephalic Skin: No visible rashes or lesions to exposed skin areas Neurologic: awake Psychiatric: Orientation: alert and oriented x 3 Results & Data ([facility]) Vital Signs (Past 12 Hours) Vital Signs Temp Pulse Pulse Resp BP Pulse Ox O2 Del Method 11/18/22 07:42 36.8 C 84 18 101/70 94 Room Air 11/18/22 02:55 36.9 C 85 18 117/69 94 Room Air 11/17/22 22:30 93 H 11/17/22 22:35 37.0 C 86 18 116/86 93 Room Air PG Care Time/CCT Total # of Minutes Spent Total Time Spent with Patient: Total time spent is greater than 50% in coordination of care (as documented) at patient's floor/unit and/or counseling patient: Coding Level of Care Code 71915 SUB INP/OBS CARE 2/35MIN Diagnoses Pyelonephritis N12 PERRI (acute kidney injury) N17.9 Flank pain R10.9
[2022-11-18] MEDS: METOPROLOL SUCC 25MG EXT REL TAB PO SCH (10:11)
[2022-11-18] MEDS: OXYBUTYNIN CHLORIDE 5 MG TAB PO SCH (10:12)
[2022-11-18] MEDS: OXcarbazepine 150 MG TABLET PO SCH ×2 (10:12→21:30)
[2022-11-18] MEDS: PANTOprazole 40 MG TAB PO SCH ×2 (10:14→21:30)
[2022-11-18] MEDS: FLUTICASONE FUROATE 100MCG 14 PUFFS/INHALER INH SCH (10:15)
[2022-11-18] MEDS: UMECLIDINIUM/VILANTEROL 62.5/25MCG 7 PUFFS/INHALER INH SCH (10:15)
[2022-11-18] MEDS ORDERED: DAPTOmycin 500 MG in SYRINGE 0 ML IV SCH (10:45)
[2022-11-18] MEDS ORDERED: PROMETHAZINE HCL 12.5 MG in SODIUM CHLORIDE 0.9% 50 ML IV STA (10:50)
--- NOTE | 2022-11-18 11:50 | Hospitalist Progress Note ---
Date of Service November 18, 2022 Assessment & Plan (1) PERRI (acute kidney injury): (2) CKD (chronic kidney disease), stage IV: Plan: per admitting service notes with addendum: Patient is 67-year-old female with PMH HTN, DM II, CKD IV, COPD, asthma, chronic respiratory failure with hypoxia on chronic 2 L oxygen, CALI, GERD, bipolar disorder, history of colon cancer s/p resection, history of renal calculi,history ureteral stent removal 01/2022, History of VRE and Klebsiella UTI in past, presented to ER for abnormal renal function labs. Recent admission for pyelonephritis, PERRI. Outpatient labs on 11/15/2022 with Cr of 2.4. Cr:2.2 on admission 11/02/2022 that trended down to 1.9 on dc on 11/09/2022. Baseline Cr: ~1.5 BUN: 35, Cr: 2.9. K: 5.2 -In ER given 1L NSS -Repeat BMP today -Gentle IVF -Monitor renal functions, avoid nephrotoxic agents when possible -Consider nephrology consult if not improving 2/9 likely pre renal from poor oral intake, also from sepsis crea improving to 2.2 continue IV NSS monitor labs daily (3) Pyelonephritis: Plan: Sepsis secondary to above 11/02/22 Admission for pyelonephritis, at that time negative blood cultures and urine culture with multiple organisms probable skin agnes. Was treated with Rocephin, daptomycin. ID recommended treating Keflex and Zyvox for total of 14 days and Urology felt no intervention warranted. Patient was discharged on Keflex and Zyvox. Pt finished Keflex and Zyvox on 11/16/22 with continued left flank tenderness and urinary frequency and dysuria. Denies fevers Today in ER patient afebrile, vital stable. WBC: 15. UA suggestive UTI CT abdomen pelvis: No significant change in the moderate dilatation of the left renal pelvis and mild left hydroureter with urothelial thickening of the left renal collecting system and adjacent fat stranding. This suggests a pyelitis with possible associated pyelonephritis. Bladder wall thickening and adjacent fat stranding favors a cystitis. This is also unchanged. Bilateral nephroli thiasis. No ureteral calculi. -In ER given daptomycin, Rocephin -Urine culture pending -Blood cultures pending, obtained after antibiotics administered -Morphine prn severe pain -Continue Rocephin, daptomycin -ID consult -Urology consult -CBC in a.m. 11/18 afebrile leukocytosis resolved Urine culture: pending Blood cultures: pending continue IV Dapto + Ceftriaxone ID consulted discussed with Urology Service, no plans for intervention today monitor closely (4) Hyperkalemia: Plan: K: 5.2 -resolved (5) DM type 2 (diabetes mellitus, type 2): Plan: A1c: 5.4 on 11/03/2022 -Hold home glycemic agents -NovoLog sliding scale per protocol BSG 89 - 105 (6) Hypertension: Plan: - Continue metoprolol succinate (7) Hyperlipidemia: Plan: - Hold atorvastatin as receiving daptomycin (8) COPD (chronic obstructive pulmonary disease): (9) Chronic respiratory failure with hypoxia: Plan: On chronic 2 L oxygen No signs of exacerbation -Continue chronic 2 L oxygen via nasal cannula -Continue home inhalers (10) CALI (obstructive sleep apnea): Plan: - Not using CPAP (11) Bipolar disorder: Plan: - Continue home medication DVT Prophylaxis -Heparin SQ Conditional code: Wants CPR, defibrillation, meds, Does NOT want intubation, mechanical ventilation as per discussion with pt Follows with Dr Chand for routine care Disposition pending will order PT/OT (12) Eosinophilia: Plan: still persistent continue to monitor Admission and Anticipated Discharge Date Admission Date: November 17, 2022 Subjective ff up for sepsis, acute pyelo, PERRI, etc seen resting in bed, sitting up not in distress very pleasant reports nausea this morning, Zofran did not relieve still has L CVA pain/tenderness no fever/chills no chest pain, dyspnea, palpitations, dizziness no other symptoms Review of Systems Review of Systems: all noted and negative except for above Physical Exam Physical Exam: General- oriented x 3, not in distress, speaks in sentences with no effort or accessory muscle use Eyes- anicteric Neck- no JVD Lungs- clear breath sounds bilaterally, no rales/wheezes Heart- normal rate, regular rhythm; no murmurs Abdomen- normal bowel sounds, nondistended, soft, (+) L CVA tenderness Extremities- no pretibial edema, no calf tenderness Neuro- alert, oriented x 3; no gross focal neurologic deficits Skin- warm & dry Results & Data Results & Data ([facility]) Vital Signs (Past 12 Hours) Vital Signs Temp Pulse Resp BP Pulse Ox O2 Del Method 11/18/22 11:33 37.2 C 88 18 92/66 L 92 Room Air 11/18/22 07:42 36.8 C 84 18 101/70 94 Room Air 11/18/22 02:55 36.9 C 85 18 117/69 94 Room Air all noted and reviewed including below
[2022-11-18] MEDS: CHOLECALCIFEROL 1,000 UNITS 25 MCG TAB PO SCH (11:59)
[2022-11-18] MEDS: ADVANCED PROBIOTIC 1250 MG CAPSULE PO SCH (11:59)
[2022-11-18] MEDS: CYANOCOBALAMIN (B-12) 100 MCG TABLET PO SCH (11:59)
[2022-11-18] MEDS: FOLIC ACID 1 MG TAB PO SCH (11:59)
[2022-11-18] MEDS: FERROUS GLUCONATE 324 MG TAB PO SCH (11:59)
[2022-11-18] MEDS: MAGNESIUM OXIDE 400 MG TAB PO SCH (11:59)
[2022-11-18] MEDS: cefTRIAXone SODIUM 2,000 MG in DEXTROSE 5% 50 ML IV SCH (15:23)
[2022-11-18] MEDS ORDERED: SODIUM CHLORIDE 0.9% 1000ML 500 ML IV ONE (15:24)
[2022-11-18] MEDS: PROMETHAZINE HCL 12.5 MG in SODIUM CHLORIDE 0.9% 50 ML IV PRN (17:45)
[2022-11-18] MEDS: METOPROLOL SUCC 50MG EXT REL TAB PO SCH (21:30)
[2022-11-18] MEDS: hydrOXYzine HCl 10 MG TAB PO SCH (21:30)
[2022-11-19] MEDS: HEPARIN SOD 5,000 UNIT/0.5 ML VIAL SQ SCH ×3 (02:05→18:55)
[2022-11-19] MEDS: MoRPHine SULFATE 2 MG/ML CARP IV PRN ×2 (02:18→13:56)
[2022-11-19 06:35] LABS: Basophils # (auto) 0.04 K/uL (0-0.2); Basophils % (auto) 0.5 %; Eosinophils # (auto) 1.84 K/uL (0-0.50); Eosinophils % (auto) 22.2 %; Hematocrit (blood only) 27.3 % (37.0-47.0); Hemoglobin 8.2 g/dl (12.0-16.0); Immature Granulocytes # (auto) 0.03 K/uL (0.01-0.20); Immature Granulocytes % (auto) 0.4 %; Lymphocytes # (auto) 1.84 K/uL (1.2-3.4); Lymphocytes % (auto) 22.2 %; Mean Corpuscular Hemoglobin 29.9 pg (25.0-34.0); Mean Corpuscular Volume 99.6 fL (80.0-100.0); Mean Platelet Volume 9.9 fL (9.4-12.4); Monocytes # (auto) 0.65 K/uL (0.11-0.59); Monocytes % (auto) 7.9 %; Neutrophils # (auto) 3.88 K/uL (1.40-6.50); Neutrophils % (auto) 46.8 %; Platelet Count 147 K/uL (130-400); RDW Coefficient of Variation 12.9 % (11.5-14.5); Red Blood Count 2.74 M/uL (4.20-5.40); White Blood Count 8.28 K/ul (4.8-10.8)
[2022-11-19 06:56] LABS: Calcium 8.1 mg/dl (8.5-10.1); Potassium 4.1 mmol/L (3.5-5.1)
[2022-11-19 07:01] LABS: BUN Creatinine Ratio 10.9 (10-20); Creatinine Clr Calc Pharmacy 23.9 ml/min; Est GFR (Non-African American) 23.3 ml/min
[2022-11-19] MEDS: FLUTICASONE FUROATE 100MCG 14 PUFFS/INHALER INH SCH (08:20)
[2022-11-19] MEDS: UMECLIDINIUM/VILANTEROL 62.5/25MCG 7 PUFFS/INHALER INH SCH (08:20)
[2022-11-19] MEDS: INSULIN ASPART PER UNIT SC SCH ×4 (08:26→23:17)
[2022-11-19] MEDS: METOPROLOL SUCC 25MG EXT REL TAB PO SCH (08:28)
[2022-11-19] MEDS: oxyCODONE HCL IR 5 MG TAB (IMMEDIATE RELEASE) PO PRN (08:28)
[2022-11-19] MEDS: ACETAMINOPHEN 500 MG TAB PO SCH ×2 (08:28→16:57)
[2022-11-19] MEDS: OXYBUTYNIN CHLORIDE 5 MG TAB PO SCH (08:29)
[2022-11-19] MEDS: PANTOprazole 40 MG TAB PO SCH (08:29)
[2022-11-19] MEDS: OXcarbazepine 150 MG TABLET PO SCH (08:29)
[2022-11-19] MEDS: PROMETHAZINE HCL 12.5 MG in SODIUM CHLORIDE 0.9% 50 ML IV PRN ×2 (08:49→21:40)
[2022-11-19] MEDS: SODIUM CHLORIDE 0.9% 1000ML 1,000 ML IV SCH (08:51)
--- NOTE | 2022-11-19 09:00 | Urology Progress Note ---
Date of Service November 19, 2022 Assessment & Plan (1) Pyelonephritis: (2) PERRI (acute kidney injury): (3) Flank pain: Plan 67yo/F with a history of kidney stones and recent admission for pyelonephritis and PERRI who presented to the ED today for abnormal renal function labs and admi tted to medicine service. -CT a/p shows no significant change in the moderate dilation of the left renal pelvis/left hydroureter with urothelial thickening of the left renal collecting system, suggests a pyelitis with possible associated pyelonephritis. Bilateral nephrolithiasis, no obstructing stones noted. -She is afebrile and hemodynamically stable. -Labs show leukocytosis has improved, renal function downtrending. Continue to monitor. -Urine and blood cultures preliminary no growth. -Continues on Dapto and Rocephin. Has grown yeast/ruben glabrata in the past. ID consulted. -Follow cultures and tailor as culture data becomes available. -Voiding spontaneously, continue to monitor. Recommend bladder scan after next void and prn. -She has responded well to conservative measuresin the past. Patient prefers to avoid stent and Hernandez placement. For now, can continue with supportive care and antibiotic therapy. -If the patient fails to progress or acutely worsens, can revisit ureteral stent and hernandez placement. -Urology will follow. Admission and Anticipated Discharge Date Admission Date: November 18, 2022 Subjective Patient seen and examined at bedside this morning. Awake, sitting up in bed eating breakfast on arrival. No acute issues overnight. She reports ongoing left abdominal and flank discomfort. She denies fevers or chills. Notes nausea at present, no vomiting. States she still feels poorly. Notes urinary frequency and some dysuria. No hematuria. Has been out of bed to restroom. Review of Systems Constitutional: as per Subjective / HPI Gastrointestinal: as per Subjective / HPI Genitourinary: as per Subjective / HPI Physical Exam Constitutional: + obese; no acute distress Neck: normal visual inspection Respiratory: no respiratory distress and no labored breathing Gastrointestinal (Abdomen): Left flank/LLQ tenderness with palpation. Musculoskeletal: Head/Neck/Chest: normocephalic Neurologic: awake Psychiatric: Orientation: alert and oriented x 3 Results & Data ([facility]) Vital Signs (Past 12 Hours) Vital Signs Temp Pulse Pulse Resp BP Pulse Ox O2 Del Method 11/19/22 07:58 37.0 C 85 19 96/67 L 91 Room Air 11/19/22 07:40 84 11/19/22 02:12 37.1 C 89 18 117/80 92 Room Air 11/18/22 22:02 86 11/18/22 23:00 37.0 C 75 18 104/60 94 Room Air PG Care Time/CCT Total # of Minutes Spent Total Time Spent with Patient: Total time spent is greater than 50% in coordination of care (as documented) at patient's floor/unit and/or counseling patient: Coding Level of Care Code 17865 SUB INP/OBS CARE 2/35MIN Diagnoses Pyelonephritis N12 PERRI (acute kidney injury) N17.9 Flank pain R10.9
[2022-11-19] MEDS: FERROUS GLUCONATE 324 MG TAB PO SCH (11:42)
[2022-11-19] MEDS: MAGNESIUM OXIDE 400 MG TAB PO SCH (11:42)
[2022-11-19] MEDS: FOLIC ACID 1 MG TAB PO SCH (11:42)
[2022-11-19] MEDS: ADVANCED PROBIOTIC 1250 MG CAPSULE PO SCH (11:42)
[2022-11-19] MEDS: CYANOCOBALAMIN (B-12) 100 MCG TABLET PO SCH (11:42)
[2022-11-19] MEDS: CHOLECALCIFEROL 1,000 UNITS 25 MCG TAB PO SCH (11:42)
[2022-11-19] MEDS: DAPTOmycin 500 MG in SYRINGE 0 ML IV SCH (11:52)
[2022-11-19] MEDS: cefTRIAXone SODIUM 2,000 MG in DEXTROSE 5% 50 ML IV SCH (13:58)
--- NOTE | 2022-11-19 16:45 | Hospitalist Progress Note ---
Date of Service November 19, 2022 Assessment & Plan (1) PERRI (acute kidney injury): (2) CKD (chronic kidney disease), stage IV: Plan: per admitting service notes with addendum: Patient is 67-year-old female with PMH HTN, DM II, CKD IV, COPD, asthma, chronic respiratory failure with hypoxia on chronic 2 L oxygen, CALI, GERD, bipolar disorder, history of colon cancer s/p resection, history of renal calculi,history ureteral stent removal 01/2022, History of VRE and Klebsiella UTI in past, presented to ER for abnormal renal function labs. Recent admission for pyelonephritis, PERRI. Outpatient labs on 11/15/2022 with Cr of 2.4. Cr:2.2 on admission 11/02/2022 that trended down to 1.9 on dc on 11/09/2022. Baseline Cr: ~1.5 BUN: 35, Cr: 2.9. K: 5.2 -In ER given 1L NSS -Repeat BMP today -Gentle IVF -Monitor renal functions, avoid nephrotoxic agents when possible -Consider nephrology consult if not improving 2/10 likely pre-renal from poor oral intake, also from sepsis crea improving to 2.1 continue IV NSS monitor labs daily (3) Pyelonephritis: Plan: Sepsis secondary to above 11/02/22 Admission for pyelonephritis, at that time negative blood cultures and urine culture with multiple organisms probable skin agnes. Was treated with Rocephin, daptomycin. ID recommended treating Keflex and Zyvox for total of 14 days and Urology felt no intervention warranted. Patient was discharged on Keflex and Zyvox. Pt finished Keflex and Zyvox on 11/16/22 with continued left flank tenderness and urinary frequency and dysuria. Denies fevers Today in ER patient afebrile, vital stable. WBC: 15. UA suggestive UTI CT abdomen pelvis: No significant change in the moderate dilatation of the left renal pelvis and mild left hydroureter with urothelial thickening of the left renal collecting system and adjacent fat stranding. This suggests a pyelitis with possible associated pyelonephritis. Bladder wall thickening and adjacent fat stranding favors a cystitis. This is also unchanged. Bilateral nephro lithiasis. No ureteral calculi. -In ER given daptomycin, Rocephin -Urine culture pending -Blood cultures pending, obtained after antibiotics administered -Morphine prn severe pain -Continue Rocephin, daptomycin -ID consult -Urology consult -CBC in a.m. 11/19 afebrile leukocytosis resolved still having L sided pain Urine culture: negative so far Blood cultures: negative so far continue IV Dapto + Ceftriaxone for now ID consulted discussed with Urology Service, no plans for intervention monitor closely (4) Hyperkalemia: Plan: K: 5.2 - resolved (5) DM type 2 (diabetes mellitus, type 2): Plan: A1c: 5.4 on 11/03/2022 - Hold home glycemic agents - NovoLog sliding scale per protocol BSG 77 - 120 (6) Hypertension: Plan: - Continue metoprolol succinate (7) Hyperlipidemia: Plan: - Hold atorvastatin as receiving daptomycin (8) COPD (chronic obstructive pulmonary disease): (9) Chronic respiratory failure with hypoxia: Plan: On chronic 2 L oxygen No signs of exacerbation -Continue chronic 2 L oxygen via nasal cannula -Continue home inhalers (10) CALI (obstructive sleep apnea): Plan: - Not using CPAP (11) Bipolar disorder: Plan: - Continue home medication DVT Prophylaxis -Heparin SQ Conditional code: Wants CPR, defibrillation, meds, Does NOT want intubation, mechanical ventilation as per discussion with pt Follows with Dr Chand for routine care Disposition pending will order PT/OT (12) Eosinophilia: Plan: still persistent continue to monitor Admission and Anticipated Discharge Date Admission Date: November 18, 2022 Subjective ff up for pyelonephritis, etc seen resting in bedside chair, not in distress states she still has L sided back pain also has some epigastric discomfort- thinks they are from taking all meds altogether no fever/chills no chest pain, dyspnea, palpitations, dizziness no other symptoms Review of Systems Review of Systems: all noted and negative except for above Physical Exam Physical Exam: General- oriented x 3, not in distress, speaks in sentences with no effort or accessory muscle use Eyes- anicteric Neck- no JVD Lungs- clear BS bilaterally, no rales/wheezes Heart- normal rate, regular rhythm; no murmurs Abdomen- normal bowel sounds, nondistended, soft, no tenderness Extremities- no pretibial edema, no calf tenderness Neuro- alert, oriented x 3; no gross focal neurologic deficits Skin- warm & dry Results & Data Results & Data ([facility]) Vital Signs (Past 12 Hours) Vital Signs Temp Pulse Pulse Resp BP Pulse Ox O2 Del Method 11/19/22 12:03 37.0 C 90 18 91/66 L 90 Room Air 11/19/22 07:58 37.0 C 85 19 96/67 L 91 Room Air 11/19/22 07:40 84 all noted and reviewed including below
[2022-11-19] MEDS ORDERED: LACTATED RINGER'S 1,000 ML IV ONE (22:36)
[2022-11-19] MEDS ORDERED: METOPROLOL TARTRATE 1 MG/ML VIAL IV STA (22:40)
[2022-11-19] MEDS: MAGNESIUM SULFATE / D5W 1 GM/100 ML BAG IV SCH (23:15)
[2022-11-20] MEDS: METOPROLOL SUCC 50MG EXT REL TAB PO SCH (00:06)
[2022-11-20] MEDS: PANTOprazole 40 MG TAB PO SCH ×2 (00:06→08:18)
[2022-11-20] MEDS: hydrOXYzine HCl 10 MG TAB PO SCH ×2 (00:06→20:24)
[2022-11-20] MEDS: OXcarbazepine 150 MG TABLET PO SCH ×4 (00:06→20:27)
[2022-11-20] MEDS: ACETAMINOPHEN 500 MG TAB PO SCH ×2 (00:17→08:17)
[2022-11-20] MEDS: MoRPHine SULFATE 2 MG/ML CARP IV PRN ×4 (00:18→23:10)
[2022-11-20] MEDS: MAGNESIUM SULFATE / D5W 1 GM/100 ML BAG IV SCH (01:34)
[2022-11-20] MEDS: HEPARIN SOD 5,000 UNIT/0.5 ML VIAL SQ SCH ×3 (03:26→19:55)
[2022-11-20] MEDS ORDERED: LACTATED RINGER'S 1,000 ML IV ONE (05:31)
[2022-11-20] MEDS: PROMETHAZINE HCL 12.5 MG in SODIUM CHLORIDE 0.9% 50 ML IV PRN ×2 (05:52→15:42)
[2022-11-20] MEDS: METOPROLOL TARTRATE 1 MG/ML VIAL IV SCH ×4 (05:55→23:11)
--- NOTE | 2022-11-20 07:03 | Communication Note ---
Date of Service: November 20, 2022 Late entry Patient transferred overnight to PCU because of tachycardia to facilitate IV beta-velma administration. Heart rate 1 10-1 60s as per RN. Patient unable to take her oral beta-velma due to nausea symptoms as per RN.
[2022-11-20] MEDS: INSULIN ASPART PER UNIT SC SCH ×4 (08:16→20:17)
[2022-11-20] MEDS: FOLIC ACID 1 MG TAB PO SCH (08:17)
[2022-11-20] MEDS: ADVANCED PROBIOTIC 1250 MG CAPSULE PO SCH (08:17)
[2022-11-20] MEDS: CYANOCOBALAMIN (B-12) 100 MCG TABLET PO SCH (08:17)
[2022-11-20] MEDS: FERROUS GLUCONATE 324 MG TAB PO SCH (08:17)
[2022-11-20] MEDS: MAGNESIUM OXIDE 400 MG TAB PO SCH (08:18)
[2022-11-20] MEDS: OXYBUTYNIN CHLORIDE 5 MG TAB PO SCH (08:18)
[2022-11-20] MEDS: METOPROLOL SUCC 25MG EXT REL TAB PO SCH (08:18)
[2022-11-20 08:39] LABS: Basophils # (auto) 0.02 K/uL (0-0.2); Basophils % (auto) 0.2 %; Eosinophils # (auto) 2.01 K/uL (0-0.50); Eosinophils % (auto) 22.8 %; Hematocrit (blood only) 29.3 % (37.0-47.0); Immature Granulocytes # (auto) 0.05 K/uL (0.01-0.20); Immature Granulocytes % (auto) 0.6 %; Lymphocytes # (auto) 0.68 K/uL (1.2-3.4); Lymphocytes % (auto) 7.7 %; Mean Corpuscular Hemoglobin 30.5 pg (25.0-34.0); Mean Corpuscular Hgb Conc 30.7 g/dL (32.0-36.0); Mean Corpuscular Volume 99.3 fL (80.0-100.0); Mean Platelet Volume 10.1 fL (9.4-12.4); Monocytes # (auto) 0.79 K/uL (0.11-0.59); Neutrophils # (auto) 5.26 K/uL (1.40-6.50); Neutrophils % (auto) 59.7 %; Platelet Count 154 K/uL (130-400); RDW Coefficient of Variation 12.9 % (11.5-14.5); RDW Standard Deviation 46.2 fL (36.4-46.3); Red Blood Count 2.95 M/uL (4.20-5.40); White Blood Count 8.81 K/ul (4.8-10.8)
[2022-11-20 08:58] LABS: BUN Creatinine Ratio 9.3 (10-20); Calcium 8.8 mg/dl (8.5-10.1); Creatinine Clr Calc Pharmacy 25.9 ml/min; Est GFR (African American) 30.1 ml/min; Est GFR (Non-African American) 25.9 ml/min; Potassium 4.1 mmol/L (3.5-5.1)
--- NOTE | 2022-11-20 09:05 | Urology Progress Note ---
Date of Service November 20, 2022 Assessment & Plan (1) Pyelonephritis: (2) CKD (chronic kidney disease), stage IV: Plan Suspected pyelonephritis Currently afebrile Was tachycardic overnight CT reviewed earlier this week as well as again todayrichy does have dilation of the left ureter with some evidence of pyelitis She has previously had obstruction from stones and tolerated stents very poorly Dilation secondary to upper tract infection is expected and not always indicative of obstructiontypically these are managed with antibiotics rather than urological intervention She greatly prefers to try to manage this in that fashion Pyelonephritis often takes 5+ days of antibiotics to relieve symptomsfor now I think continued observation and antibiotic management is most appropriate Kidney function is slowly improvingcreatinine 1.9 Admission and Anticipated Discharge Date Admission Date: November 18, 2022 Subjective Experienced tachycardia throughout the evening last night Afebrile Persistent left flank and back pain On discussion today - while uncomfortable she still very much prefers to avoid any intervention She has tolerated stent very poorly in the past We also discussed that with pyelitis/pyelonephritis, some dilation of the ureter is normal and is not necessarily indicative of obstruction I have discussed that in most cases of nonobstructive pyelonephritis/pyelitis we simply managed with antibiotics and supportive care and the symptoms resolve with time Physical Exam Physical Exam: Tender across the abdomen, more so on the left She does have left flank tenderness/CVA tenderness to touch Constitutional: well developed and well nourished Respiratory: no respiratory distress Cardiovascular: Extremities: no pedal edema Gastrointestinal (Abdomen): Inspection/Auscultation: abdomen normal to inspection Results & Data ([facility]) Vital Signs (Past 12 Hours) Vital Signs Temp Pulse Pulse Pulse Resp BP BP 11/20/22 08:00 37.2 C 91 H 18 113/72 11/20/22 05:55 99 H 133/89 11/20/22 02:56 36.8 C 97 H 18 124/99 11/19/22 22:54 103 H 11/19/22 22:32 37.0 C 136 H 16 126/71 11/20/22 00:00 112 H 11/19/22 23:59 119 H 141/90 H 11/19/22 23:56 37.2 C 117 H 19 141/90 H Pulse Ox O2 Del Method 11/20/22 08:00 96 Room Air 11/20/22 05:55 11/20/22 02:56 96 Room Air 11/19/22 22:54 11/19/22 22:32 97 Room Air 11/20/22 00:00 11/19/22 23:59 11/19/22 23:56 98 Room Air PG Care Time/CCT Total # of Minutes Spent Total Time Spent with Patient: Total time spent is greater than 50% in coordination of care (as documented) at patient's floor/unit and/or counseling patient: Coding Level of Care Code 37342 SUB INP/OBS CARE 2/35MIN Diagnoses Pyelonephritis N12 CKD (chronic kidney disease), stage IV N18.4
[2022-11-20] MEDS: FLUTICASONE FUROATE 100MCG 14 PUFFS/INHALER INH SCH (09:34)
[2022-11-20] MEDS: UMECLIDINIUM/VILANTEROL 62.5/25MCG 7 PUFFS/INHALER INH SCH (09:35)
[2022-11-20] MEDS: ALUMINUM/MAGNESIUM SUSP 30 ML UDC PO PRN (15:03)
[2022-11-20] MEDS: cefTRIAXone SODIUM 2,000 MG in DEXTROSE 5% 50 ML IV SCH (15:03)
[2022-11-20] MEDS: PANTOprazole 40 MG in SYRINGE 0 ML IV SCH ×2 (15:42→21:30)
--- NOTE | 2022-11-20 18:08 | Hospitalist Progress Note ---
Date of Service November 20, 2022 Assessment & Plan (1) PERRI (acute kidney injury): (2) CKD (chronic kidney disease), stage IV: Plan: per admitting service notes with addendum: Patient is 67-year-old female with PMH HTN, DM II, CKD IV, COPD, asthma, chronic respiratory failure with hypoxia on chronic 2 L oxygen, CALI, GERD, bipolar disorder, history of colon cancer s/p resection, history of renal calculi,history ureteral stent removal 01/2022, History of VRE and Klebsiella UTI in past, presented to ER for abnormal renal function labs. Recent admission for pyelonephritis, PERRI. Outpatient labs on 11/15/2022 with Cr of 2.4. Cr:2.2 on admission 11/02/2022 that trended down to 1.9 on dc on 11/09/2022. Baseline Cr: ~1.5 BUN: 35, Cr: 2.9. K: 5.2 -In ER given 1L NSS -Repeat BMP today -Gentle IVF -Monitor renal functions, avoid nephrotoxic agents when possible -Consider nephrology consult if not improving 11/20 likely pre-renal from poor oral intake, also from sepsis crea improving to 1.9 monitor labs daily (3) Pyelonephritis: Plan: Sepsis secondary to above 11/02/22 Admission for pyelonephritis, at that time negative blood cultures and urine culture with multiple organisms probable skin agnes. Was treated with Rocephin, daptomycin. ID recommended treating Keflex and Zyvox for total of 14 days and Urology felt no intervention warranted. Patient was discharged on Keflex and Zyvox. Pt finished Keflex and Zyvox on 11/16/22 with continued left flank tenderness and urinary frequency and dysuria. Denies fevers Today in ER patient afebrile, vital stable. WBC: 15. UA suggestive UTI CT abdomen pelvis: No significant change in the moderate dilatation of the left renal pelvis and mild left hydroureter with urothelial thickening of the left renal collecting system and adjacent fat stranding. This suggests a pyelitis with possible associated pyelonephritis. Bladder wall thickening and adjacent fat stranding favors a cystitis. This is also unchanged. Bilateral nephrolithiasis. No ureteral calculi. -In ER given daptomycin, Rocephin -Urine culture pending -Blood cultures pending, obtained after antibiotics administered -Morphine prn severe pain -Continue Rocephin, daptomycin -ID consult -Urology consult -CBC in a.m. 11/20 afebrile leukocytosis resolved still having L sided pain, nausea Urine culture: negative so far Blood cultures: negative so far continue IV Dapto + Ceftriaxone for now ID consulted discussed with Urology Service, no plans for intervention monitor closely Pain control, antiemetics Hopefully patient will be able to tolerate food and medications again tomorrow (4) Hyperkalemia: Plan: K: 5.2 - resolved (5) DM type 2 (diabetes mellitus, type 2): Plan: A1c: 5.4 on 11/03/2022 - Hold home glycemic agents - NovoLog sliding scale per protocol BSG 106-112 (6) Hypertension: Plan: - Continue metoprolol succinate (7) Hyperlipidemia: Plan: - Hold atorvastatin as receiving daptomycin (8) COPD (chronic obstructive pulmonary disease): (9) Chronic respiratory failure with hypoxia: Plan: On chronic 2 L oxygen No signs of exacerbation -Continue chronic 2 L oxygen via nasal cannula -Continue home inhalers (10) CALI (obstructive sleep apnea): Plan: - Not using CPAP (11) Bipolar disorder: Plan: - Continue home medication DVT Prophylaxis -Heparin SQ Conditional code: Wants CPR, defibrillation, meds, Does NOT want intubation, mechanical ventilation as per discussion with pt Follows with Dr Chand for routine care Disposition pending will order PT/OT (12) Eosinophilia: Plan: still persistent continue to monitor Admission and Anticipated Discharge Date Admission Date: November 18, 2022 Subjective Follow-up for pyelonephritis, etc. Seen resting in bedside chair, comfortable, not in distress Reports having nausea and vomiting overnight, nausea improving today Main symptom is left flank pain, resulting to nausea Denies abdominal pain No fevers or chills Review of Systems Review of Systems: all noted and negative except for above Physical Exam Physical Exam: General- oriented x 3, not in distress, speaks in sentences with no effort or accessory muscle use Eyes- anicteric Neck- no JVD Lungs- clear BS bilaterally, no rales/wheezes Heart- normal rate, regular rhythm; no murmurs Abdomen- normal bowel sounds, nondistended, soft, no tenderness Positive left CVA tenderness Extremities- no pretibial edema, no calf tenderness Neuro- alert, oriented x 3; no gross focal neurologic deficits Skin- warm & dry Results & Data Results & Data ([facility]) Vital Signs (Past 12 Hours) Vital Signs Temp Pulse Pulse Resp BP BP Pulse Ox 11/20/22 17:29 79 11/20/22 17:26 81 11/20/22 15:23 37.1 C 88 18 124/89 97 11/20/22 12:32 37.4 C 85 18 123/80 97 11/20/22 11:40 81 11/20/22 10:00 89 11/20/22 08:00 37.2 C 91 H 18 113/72 96 O2 Del Method 11/20/22 17:29 11/20/22 17:26 11/20/22 15:23 Room Air 11/20/22 12:32 Room Air 11/20/22 11:40 11/20/22 10:00 11/20/22 08:00 Room Air all noted and reviewed including below
[2022-11-20 18:51] LABS: Adenovirus F 40/41 PCR Not Detected (NotDetected); Astrovirus PCR Not Detected (NotDetected); Cryptosporidium PCR Not Detected (NotDetected); Cyclospora cayetanensis PCR Not Detected (NotDetected); Entamoeba histolytica PCR Not Detected (NotDetected); Enteroaggregative E.coli(EAEC) Not Detected (NotDetected); Enteropathogenic E.coli (EPEC) Not Detected (NotDetected); Enterotoxigenic E.coli (ETEC) Not Detected (NotDetected); Giardia lamblia PCR Not Detected (NotDetected); Norovirus GI/GII PCR Not Detected (NotDetected); Plesiomonas shigelloides PCR Not Detected (NotDetected); Rotavirus A PCR Not Detected (NotDetected); Salmonella PCR Not Detected (NotDetected); Sapovirus PCR Not Detected (NotDetected); Shiga-like Toxin E.coli (STEC) Not Detected (NotDetected); Shigella/Enteroinvasive E.coli Not Detected (NotDetected); Vibrio cholerae PCR Not Detected (NotDetected); Vibrio species PCR Not Detected (NotDetected); Yersinia enterocolitica PCR Not Detected (NotDetected)
[2022-11-20 19:21] LABS: Campylobacter PCR DETECTED (NotDetected)
--- NOTE | 2022-11-20 20:08 | Communication Note ---
Date of Service: November 20, 2022 Made aware by RN of Campylobacter on stool testing. Patient without hematochezia and diarrhea symptoms improving. Hold off on treatment for now until patient seen by AM provider.
[2022-11-20] MEDS: oxyCODONE HCL IR 5 MG TAB (IMMEDIATE RELEASE) PO PRN (20:24)
--- NOTE | 2022-11-20 22:45 | Electrocardiogram Report ---
Test Reason : Blood Pressure : / mmHG Vent. Rate : 105 BPM Atrial Rate : 105 BPM P-R Int : 192 ms QRS Dur : 062 ms QT Int : 320 ms P-R-T Axes : 034 -08 037 degrees QTc Int : 422 ms Sinus tachycardia Possible Inferior infarct When compared with ECG of 17-NOV-2022 13:04, No significant change was found Confirmed by Kalia Puente ([id number]) on 11/20/2022 10:45:32 PM Referred By: REFERRED SELF Confirmed By:Kalia Puente
[2022-11-21] MEDS: PROMETHAZINE HCL 12.5 MG in SODIUM CHLORIDE 0.9% 50 ML IV PRN (02:27)
[2022-11-21] MEDS: HEPARIN SOD 5,000 UNIT/0.5 ML VIAL SQ SCH ×3 (02:28→19:30)
[2022-11-21] MEDS: METOPROLOL TARTRATE 1 MG/ML VIAL IV SCH ×2 (06:08→11:19)
[2022-11-21 06:27] LABS: Basophils # (auto) 0.02 K/uL (0-0.2); Basophils % (auto) 0.3 %; Eosinophils # (auto) 1.79 K/uL (0-0.50); Eosinophils % (auto) 23.8 %; Hematocrit (blood only) 26.7 % (37.0-47.0); Hemoglobin 8.2 g/dl (12.0-16.0); Immature Granulocytes # (auto) 0.02 K/uL (0.01-0.20); Immature Granulocytes % (auto) 0.3 %; Lymphocytes # (auto) 1.83 K/uL (1.2-3.4); Lymphocytes % (auto) 24.3 %; Mean Corpuscular Hgb Conc 30.7 g/dL (32.0-36.0); Mean Corpuscular Volume 97.8 fL (80.0-100.0); Monocytes % (auto) 10.6 %; Neutrophils # (auto) 3.06 K/uL (1.40-6.50); Neutrophils % (auto) 40.7 %; Platelet Count 153 K/uL (130-400); RDW Coefficient of Variation 12.9 % (11.5-14.5); RDW Standard Deviation 45.4 fL (36.4-46.3); Red Blood Count 2.73 M/uL (4.20-5.40); White Blood Count 7.52 K/ul (4.8-10.8)
[2022-11-21 06:45] LABS: BUN Creatinine Ratio 6.4 (10-20); Calcium 8.8 mg/dl (8.5-10.1); Creatinine Clr Calc Pharmacy 27.1 ml/min; Est GFR (African American) 31.2 ml/min; Est GFR (Non-African American) 26.9 ml/min; Potassium 3.7 mmol/L (3.5-5.1)
[2022-11-21] MEDS: OXYBUTYNIN CHLORIDE 5 MG TAB PO SCH (07:41)
[2022-11-21] MEDS: FERROUS GLUCONATE 324 MG TAB PO SCH (07:41)
[2022-11-21] MEDS: CYANOCOBALAMIN (B-12) 100 MCG TABLET PO SCH (07:41)
[2022-11-21] MEDS: hydrOXYzine HCl 10 MG TAB PO SCH (07:41)
[2022-11-21] MEDS: ADVANCED PROBIOTIC 1250 MG CAPSULE PO SCH (07:41)
[2022-11-21] MEDS: PANTOprazole 40 MG in SYRINGE 0 ML IV SCH ×2 (07:42→20:13)
[2022-11-21] MEDS: FOLIC ACID 1 MG TAB PO SCH (07:42)
[2022-11-21] MEDS: OXcarbazepine 150 MG TABLET PO SCH ×2 (07:42→20:13)
[2022-11-21] MEDS: UMECLIDINIUM/VILANTEROL 62.5/25MCG 7 PUFFS/INHALER INH SCH (07:43)
[2022-11-21] MEDS: INSULIN ASPART PER UNIT SC SCH ×4 (07:43→20:26)
[2022-11-21] MEDS: FLUTICASONE FUROATE 100MCG 14 PUFFS/INHALER INH SCH (07:43)
--- NOTE | 2022-11-21 08:58 | Urology Progress Note ---
Date of Service November 21, 2022 Assessment & Plan (1) Acute pyelonephritis: Plan Leukocytosis slightly improved Afebrile Normotensive, tachycardia resolved with medications Creatinine stablestill not quite at baseline We again reviewed my plan of conservative management for pyelonephritis She is quite adamant that she would prefer this as she is very concerned that a stent will make her symptoms worse Admission and Anticipated Discharge Date Admission Date: November 18, 2022 Subjective No major subjective changes overnight Still with left flank pain No fevers, no chills Heart rate has been better Remains content with continued conservative management Physical Exam Physical Exam: Nontender on the left flank Results & Data ([facility]) Vital Signs (Past 12 Hours) Vital Signs Temp Pulse Pulse Resp BP BP BP 11/21/22 07:37 36.8 C 73 18 113/77 11/20/22 23:00 82 11/21/22 06:08 75 126/78 11/21/22 02:28 36.8 C 76 18 91/61 L 11/20/22 23:11 82 110/62 11/20/22 23:02 37.3 C 82 16 112/66 Pulse Ox O2 Del Method 11/21/22 07:37 95 Room Air 11/20/22 23:00 11/21/22 06:08 11/21/22 02:28 94 Room Air 11/20/22 23:11 11/20/22 23:02 93 Room Air PG Care Time/CCT Total # of Minutes Spent Total Time Spent with Patient: Total time spent is greater than 50% in coordination of care (as documented) at patient's floor/unit and/or counseling patient: Coding Level of Care Code 96045 SUB INP/OBS CARE 11/03MIN Diagnoses Acute pyelonephritis N10
[2022-11-21] MEDS: MAGNESIUM OXIDE 400 MG TAB PO SCH (09:01)
[2022-11-21] MEDS: DAPTOmycin 500 MG in SYRINGE 0 ML IV SCH (10:46)
[2022-11-21] MEDS: cefTRIAXone SODIUM 2,000 MG in DEXTROSE 5% 50 ML IV SCH (14:37)
--- NOTE | 2022-11-21 14:59 | Hospitalist Progress Note ---
Date of Service November 21, 2022 Assessment & Plan (1) PERRI (acute kidney injury): (2) CKD (chronic kidney disease), stage IV: Plan: per admitting service notes with addendum: Patient is 67-year-old female with PMH HTN, DM II, CKD IV, COPD, asthma, chronic respiratory failure with hypoxia on chronic 2 L oxygen, CALI, GERD, bipolar disorder, history of colon cancer s/p resection, history of renal calculi,history ureteral stent removal 01/2022, History of VRE and Klebsiella UTI in past, presented to ER for abnormal renal function labs. Recent admission for pyelonephritis, PERRI. Outpatient labs on 11/15/2022 with Cr of 2.4. Cr:2.2 on admission 11/02/2022 that trended down to 1.9 on dc on 11/09/2022. Baseline Cr: ~1.5 BUN: 35, Cr: 2.9. K: 5.2 -In ER given 1L NSS -Repeat BMP today -Gentle IVF -Monitor renal functions, avoid nephrotoxic agents when possible -Consider nephrology consult if not improving 11/21 likely pre-renal from poor oral intake, also from sepsis crea improving daily, from 2.5, now 1.8 monitor labs daily (3) Pyelonephritis: Plan: Sepsis secondary to above 11/02/22 Admission for pyelonephritis, at that time negative blood cultures and urine culture with multiple organisms probable skin agnes. Was treated with Rocephin, daptomycin. ID recommended treating Keflex and Zyvox for total of 14 days and Urology felt no intervention warranted. Patient was discharged on Keflex and Zyvox. Pt finished Keflex and Zyvox on 11/16/22 with continued left flank tenderness and urinary frequency and dysuria. Denies fevers Today in ER patient afebrile, vital stable. WBC: 15. UA suggestive UTI CT abdomen pelvis: No significant change in the moderate dilatation of the left renal pelvis and mild left hydroureter with urothelial thickening of the left renal collecting system and adjacent fat stranding. This suggests a pyelitis with possible associated pyelonephritis. Bladder wall thickening and adjacent fat stranding favors a cystitis. This is also unchanged. Bilateral neph rolithiasis. No ureteral calculi. -In ER given daptomycin, Rocephin -Urine culture pending -Blood cultures pending, obtained after antibiotics administered -Morphine prn severe pain -Continue Rocephin, daptomycin -ID consult -Urology consult -CBC in a.m. 11/21 Remains afebrile afebrile leukocytosis resolved still having L sided pain, but seems to be improving Nausea resolved Urine culture: negative so far Blood cultures: negative so far continue IV Dapto + Ceftriaxone for now ID consulted discussed with Urology Service, no plans for intervention monitor closely Pain control, antiemetics Hopefully patient will be able to tolerate food and medications again tomorrow (4) Hyperkalemia: Plan: K: 5.2 - resolved (5) DM type 2 (diabetes mellitus, type 2): Plan: A1c: 5.4 on 11/03/2022 - Hold home glycemic agents - NovoLog sliding scale per protocol BSG 90-97 (6) Hypertension: Plan: - Continue metoprolol succinate (7) Hyperlipidemia: Plan: - Hold atorvastatin as receiving daptomycin (8) COPD (chronic obstructive pulmonary disease): (9) Chronic respiratory failure with hypoxia: Plan: On chronic 2 L oxygen No signs of exacerbation -Continue chronic 2 L oxygen via nasal cannula -Continue home inhalers (10) CALI (obstructive sleep apnea): Plan: - Not using CPAP (11) Bipolar disorder: Plan: - Continue home medication DVT Prophylaxis -Heparin SQ Conditional code: Wants CPR, defibrillation, meds, Does NOT want intubation, mechanical ventilation as per discussion with pt Follows with Dr Chand for routine care Disposition pending will order PT/OT (12) Eosinophilia: Plan: still persistent continue to monitor Admission and Anticipated Discharge Date Admission Date: November 18, 2022 Subjective Follow-up for left pyelonephritis, etc. Seen resting in bed, comfortable, not in distress, in good spirits States she feels improved today compared to yesterday Requesting to advance diet, tolerating oral medications well Left flank pain gradually improving as per patient No problems with urination No fevers or chills No other symptoms Review of Systems Review of Systems: all noted and negative except for above Physical Exam Physical Exam: General- oriented x 3, not in distress, speaks in sentences with no effort or accessory muscle use Eyes- anicteric Neck- no JVD Lungs- clear breath sounds, no rales or wheezing bilaterally Heart- normal rate, regular rhythm; no murmurs Abdomen- normal bowel sounds, nondistended, soft, mild left CVA tenderness Extremities- no pretibial edema, no calf tenderness Neuro- alert, oriented x 3; no gross focal neurologic deficits Skin- warm & dry Results & Data Results & Data ([facility]) Vital Signs (Past 12 Hours) Vital Signs Temp Pulse Pulse Resp BP BP Pulse Ox 11/21/22 11:53 37.1 C 66 18 125/83 96 11/21/22 09:36 82 11/21/22 07:37 36.8 C 73 18 113/77 95 11/21/22 06:08 75 126/78 O2 Del Method 11/21/22 11:53 Room Air 11/21/22 09:36 11/21/22 07:37 Room Air 11/21/22 06:08 all noted and reviewed including below
[2022-11-21] MEDS: METOPROLOL SUCC 50MG EXT REL TAB PO SCH (20:15)
[2022-11-21] MEDS: oxyCODONE HCL IR 5 MG TAB (IMMEDIATE RELEASE) PO PRN (20:21)
[2022-11-21] MEDS: MoRPHine SULFATE 2 MG/ML CARP IV PRN (21:08)
[2022-11-22] MEDS: HEPARIN SOD 5,000 UNIT/0.5 ML VIAL SQ SCH ×3 (03:03→19:57)
[2022-11-22 07:52] LABS: Basophils # (auto) 0.04 K/uL (0-0.2); Basophils % (auto) 0.5 %; Eosinophils # (auto) 1.58 K/uL (0-0.50); Eosinophils % (auto) 19.1 %; Hematocrit (blood only) 28.4 % (37.0-47.0); Hemoglobin 8.8 g/dl (12.0-16.0); Immature Granulocytes # (auto) 0.12 K/uL (0.01-0.20); Immature Granulocytes % (auto) 1.5 %; Lymphocytes # (auto) 1.89 K/uL (1.2-3.4); Lymphocytes % (auto) 22.9 %; Mean Corpuscular Volume 96.9 fL (80.0-100.0); Mean Platelet Volume 9.8 fL (9.4-12.4); Monocytes # (auto) 0.83 K/uL (0.11-0.59); Platelet Count 160 K/uL (130-400); Red Blood Count 2.93 M/uL (4.20-5.40); White Blood Count 8.26 K/ul (4.8-10.8)
[2022-11-22] MEDS: OXcarbazepine 150 MG TABLET PO SCH ×2 (07:59→20:04)
[2022-11-22] MEDS: OXYBUTYNIN CHLORIDE 5 MG TAB PO SCH (08:00)
[2022-11-22] MEDS: ADVANCED PROBIOTIC 1250 MG CAPSULE PO SCH (08:00)
[2022-11-22] MEDS: METOPROLOL SUCC 25MG EXT REL TAB PO SCH (08:00)
[2022-11-22] MEDS: CYANOCOBALAMIN (B-12) 100 MCG TABLET PO SCH (08:00)
[2022-11-22] MEDS: FERROUS GLUCONATE 324 MG TAB PO SCH (08:00)
[2022-11-22] MEDS: FOLIC ACID 1 MG TAB PO SCH (08:00)
[2022-11-22] MEDS: FLUTICASONE FUROATE 100MCG 14 PUFFS/INHALER INH SCH (08:01)
[2022-11-22] MEDS: UMECLIDINIUM/VILANTEROL 62.5/25MCG 7 PUFFS/INHALER INH SCH (08:01)
[2022-11-22] MEDS: PANTOprazole 40 MG in SYRINGE 0 ML IV SCH (08:01)
[2022-11-22] MEDS: MAGNESIUM OXIDE 400 MG TAB PO SCH (08:01)
[2022-11-22] MEDS: ALUMINUM/MAGNESIUM SUSP 30 ML UDC PO PRN (08:04)
[2022-11-22] MEDS: MoRPHine SULFATE 2 MG/ML CARP IV PRN ×3 (08:04→19:59)
[2022-11-22 08:07] LABS: BUN Creatinine Ratio 5.9 (10-20); Calcium 9.1 mg/dl (8.5-10.1); Creatinine Clr Calc Pharmacy 27.1 ml/min; Est GFR (African American) 31.4 ml/min; Est GFR (Non-African American) 27.1 ml/min; Potassium 3.7 mmol/L (3.5-5.1)
[2022-11-22] MEDS: INSULIN ASPART PER UNIT SC SCH ×4 (08:17→20:22)
[2022-11-22] MEDS: PANTOprazole 40 MG TAB PO SCH (08:18)
--- NOTE | 2022-11-22 09:29 | Urology Progress Note ---
Date of Service November 22, 2022 Assessment & Plan (1) Acute pyelonephritis: Plan Afebrile, hemodynamically stable Creatinine slowly downtrending, no leukocytosis UC 2/8 showed no growth, BCx no growth x 48 hours - follow cultures Continue with conservative management for pyelonephritis Continue antibiotics and supportive care She prefers to manage conservatively and avoid stent placement will follow peripherally Admission and Anticipated Discharge Date Admission Date: November 18, 2022 Subjective Patient seen and examined at bedside this morning. She is awake, alert and resting in bed. No acute issues overnight. She continues to have left flank and abdominal discomfort, relieved with analgesics. Nausea, no vomiting. No fever or chills. She is voiding without difficulty. No dysuria or hematuria. Review of Systems Constitutional: as per Subjective / HPI Gastrointestinal: as per Subjective / HPI Genitourinary: as per Subjective / HPI Physical Exam Constitutional: + obese; no acute distress Neck: normal visual inspection Respiratory: no respiratory distress and no labored breathing Gastrointestinal (Abdomen): Left flank/LLQ tenderness with palpation. Musculoskeletal: Head/Neck/Chest: normocephalic Neurologic: awake Psychiatric: Orientation: alert and oriented x 3 Results & Data ([facility]) Vital Signs (Past 12 Hours) Vital Signs Temp Pulse Pulse Resp BP BP Pulse Ox 11/22/22 07:27 36.9 C 70 18 128/76 96 11/22/22 03:40 71 19 107/79 95 11/21/22 23:31 88 O2 Del Method 11/22/22 07:27 Room Air 11/22/22 03:40 Room Air 11/21/22 23:31 PG Care Time/CCT Total # of Minutes Spent Total Time Spent with Patient: Total time spent is greater than 50% in coordination of care (as documented) at patient's floor/unit and/or counseling patient: Coding Level of Care Code 13749 SUB INP/OBS CARE 11/03MIN Diagnoses Acute pyelonephritis N10
[2022-11-22] MEDS: PROMETHAZINE HCL 12.5 MG in SODIUM CHLORIDE 0.9% 50 ML IV PRN ×2 (10:43→20:56)
--- NOTE | 2022-11-22 12:30 | Hospitalist Progress Note ---
Date of Service November 22, 2022 Assessment & Plan (1) PERRI (acute kidney injury): (2) CKD (chronic kidney disease), stage IV: Plan: per admitting service notes with addendum: Patient is 67-year-old female with PMH HTN, DM II, CKD IV, COPD, asthma, chronic respiratory failure with hypoxia on chronic 2 L oxygen, CALI, GERD, bipolar disorder, history of colon cancer s/p resection, history of renal calculi,history ureteral stent removal 01/2022, History of VRE and Klebsiella UTI in past, presented to ER for abnormal renal function labs. Recent admission for pyelonephritis, PERRI. Outpatient labs on 11/15/2022 with Cr of 2.4. Cr:2.2 on admission 11/02/2022 that trended down to 1.9 on dc on 11/09/2022. Baseline Cr: ~1.5 BUN: 35, Cr: 2.9. K: 5.2 -In ER given 1L NSS -Repeat BMP today -Gentle IVF -Monitor renal functions, avoid nephrotoxic agents when possible -Consider nephrology consult if not improving 11/22 likely pre-renal from poor oral intake, also from sepsis crea improving daily, from 2.5, now 1.8 monitor labs daily (3) Pyelonephritis: Plan: Sepsis secondary to above 11/02/22 Admission for pyelonephritis, at that time negative blood cultures and urine culture with multiple organisms probable skin agnes. Was treated with Rocephin, daptomycin. ID recommended treating Keflex and Zyvox for total of 14 days and Urology felt no intervention warranted. Patient was discharged on Keflex and Zyvox. Pt finished Keflex and Zyvox on 11/16/22 with continued left flank tenderness and urinary frequency and dysuria. Denies fevers Today in ER patient afebrile, vital stable. WBC: 15. UA suggestive UTI CT abdomen pelvis: No significant change in the moderate dilatation of the left renal pelvis and mild left hydroureter with urothelial thickening of the left renal collecting system and adjacent fat stranding. This suggests a pyelitis with possible associated pyelonephritis. Bladder wall thickening and adjacent fat stranding favors a cystitis. This is also unchanged. Bilateral neph rolithiasis. No ureteral calculi. -In ER given daptomycin, Rocephin -Urine culture pending -Blood cultures pending, obtained after antibiotics administered -Morphine prn severe pain -Continue Rocephin, daptomycin -ID consult -Urology consult -CBC in a.m. 11/22 Remains afebrile leukocytosis resolved still having L sided pain, improving rather slowly Nausea resolved Urine culture: negative so far Blood cultures: negative so far continue IV Dapto + Ceftriaxone for now ID consulted discussed with Urology Service, no plans for intervention monitor closely Pain control, antiemetics (4) Hyperkalemia: Plan: K: 5.2 - resolved (5) DM type 2 (diabetes mellitus, type 2): Plan: A1c: 5.4 on 11/03/2022 - Hold home glycemic agents - NovoLog sliding scale per protocol (6) Hypertension: Plan: - Continue metoprolol succinate (7) Hyperlipidemia: Plan: - Hold atorvastatin as receiving daptomycin (8) COPD (chronic obstructive pulmonary disease): (9) Chronic respiratory failure with hypoxia: Plan: On chronic 2 L oxygen No signs of exacerbation -Continue chronic 2 L oxygen via nasal cannula -Continue home inhalers (10) CALI (obstructive sleep apnea): Plan: - Not using CPAP (11) Bipolar disorder: Plan: - Continue home medication DVT Prophylaxis -Heparin SQ Conditional code: Wants CPR, defibrillation, meds, Does NOT want intubation, mechanical ventilation as per discussion with pt Follows with Dr Chand for routine care Disposition pending PT/OT (12) Eosinophilia: Plan: still persistent continue to monitor Admission and Anticipated Discharge Date Admission Date: November 18, 2022 Subjective Follow-up for pyelonephritis, etc. Seen resting in bed, comfortable, not in distress States she still has left-sided flank pain, but gradually improving Develops nausea with episodes of pain No abdominal pain Positive BMs No fevers or chills, chest pain, dizziness, shortness of breath No other symptoms Review of Systems Review of Systems: all noted and negative except for above Physical Exam Physical Exam: General- oriented x 3, not in distress, speaks in sentences with no effort or accessory muscle use Eyes- anicteric Neck- no JVD Lungs- clear breath sounds bilaterally, no rales/wheezes Heart- normal rate, regular rhythm; no murmurs Abdomen- normal bowel sounds, nondistended, soft, positive mild left CVA tenderness Extremities- no pretibial edema, no calf tenderness Neuro- alert, oriented x 3; no gross focal neurologic deficits Skin- warm & dry Results & Data Results & Data ([facility]) Vital Signs (Past 12 Hours) Vital Signs Temp Pulse Pulse Resp BP BP Pulse Ox 11/22/22 11:33 36.9 C 82 18 138/81 95 11/22/22 09:38 69 11/22/22 07:27 36.9 C 70 18 128/76 96 11/22/22 03:40 71 19 107/79 95 O2 Del Method 11/22/22 11:33 Room Air 11/22/22 09:38 11/22/22 07:27 Room Air 11/22/22 03:40 Room Air all noted and reviewed including below
[2022-11-22] MEDS: cefTRIAXone SODIUM 2,000 MG in DEXTROSE 5% 50 ML IV SCH (13:43)
[2022-11-22] MEDS: hydrOXYzine HCl 10 MG TAB PO SCH (20:04)
[2022-11-22] MEDS: METOPROLOL SUCC 50MG EXT REL TAB PO SCH (20:56)
[2022-11-23] MEDS: HEPARIN SOD 5,000 UNIT/0.5 ML VIAL SQ SCH ×3 (02:30→20:22)
[2022-11-23] MEDS: PROMETHAZINE HCL 12.5 MG in SODIUM CHLORIDE 0.9% 50 ML IV PRN ×3 (03:20→18:25)
[2022-11-23] MEDS: INSULIN ASPART PER UNIT SC SCH ×4 (08:11→20:28)
[2022-11-23 08:51] LABS: Basophils # (auto) 0.04 K/uL (0-0.2); Basophils % (auto) 0.4 %; Eosinophils # (auto) 1.59 K/uL (0-0.50); Eosinophils % (auto) 16.6 %; Hematocrit (blood only) 30.9 % (37.0-47.0); Hemoglobin 9.6 g/dl (12.0-16.0); Immature Granulocytes # (auto) 0.18 K/uL (0.01-0.20); Immature Granulocytes % (auto) 1.9 %; Lymphocytes # (auto) 1.39 K/uL (1.2-3.4); Lymphocytes % (auto) 14.5 %; Mean Corpuscular Hemoglobin 30.1 pg (25.0-34.0); Mean Corpuscular Hgb Conc 31.1 g/dL (32.0-36.0); Mean Corpuscular Volume 96.9 fL (80.0-100.0); Monocytes # (auto) 0.78 K/uL (0.11-0.59); Monocytes % (auto) 8.1 %; Neutrophils # (auto) 5.61 K/uL (1.40-6.50); Neutrophils % (auto) 58.5 %; Platelet Count 190 K/uL (130-400); RDW Standard Deviation 45.6 fL (36.4-46.3); Red Blood Count 3.19 M/uL (4.20-5.40); White Blood Count 9.59 K/ul (4.8-10.8)
[2022-11-23 09:02] LABS: BUN Creatinine Ratio 6.1 (10-20); Calcium 9.7 mg/dl (8.5-10.1); Creatinine Clr Calc Pharmacy 27.5 ml/min; Est GFR (African American) 32.5 ml/min; Potassium 3.9 mmol/L (3.5-5.1)
[2022-11-23] MEDS: FOLIC ACID 1 MG TAB PO SCH ×2 (09:22→18:25)
[2022-11-23] MEDS: PANTOprazole 40 MG TAB PO SCH ×2 (09:22→18:25)
[2022-11-23] MEDS: METOPROLOL SUCC 25MG EXT REL TAB PO SCH (09:22)
[2022-11-23] MEDS: ALUMINUM/MAGNESIUM SUSP 30 ML UDC PO PRN (09:22)
[2022-11-23] MEDS: FLUTICASONE FUROATE 100MCG 14 PUFFS/INHALER INH SCH (09:23)
[2022-11-23] MEDS: ADVANCED PROBIOTIC 1250 MG CAPSULE PO SCH ×2 (09:23→18:25)
[2022-11-23] MEDS: OXYBUTYNIN CHLORIDE 5 MG TAB PO SCH ×2 (09:23→18:25)
[2022-11-23] MEDS: FERROUS GLUCONATE 324 MG TAB PO SCH (09:23)
[2022-11-23] MEDS: OXcarbazepine 150 MG TABLET PO SCH ×2 (09:23→20:32)
[2022-11-23] MEDS: CYANOCOBALAMIN (B-12) 100 MCG TABLET PO SCH ×2 (09:23→18:25)
[2022-11-23] MEDS: UMECLIDINIUM/VILANTEROL 62.5/25MCG 7 PUFFS/INHALER INH SCH (09:24)
--- NOTE | 2022-11-23 10:02 | Gastrointestinal Consultation ---
Date of Consultation November 23, 2022 History of Present Illness Reason for Consultation: Aspiration, PEG status Requesting Physician: Bashir Attending Physician: Luis A Camejo MD History of Present Illness Ms. Elise Nesbitt is a 67 yr old female pt of Dr. Pérez w a hx of DM2, CALI, HTN, CKD, PORTER, colon CA 2010 s/p proctectomy, ileostomy, ileoproctostomy in 2010, most recent colonoscopy in 2019 and flex sig in 2021 w/o polyps or other abnormalities; last EGD 2019 w 6cm hiatal hernia, chronic respiratory failure with hypoxia on chronic 2 L oxygen, CALI, GERD, bipolar disorder who was admitted w pyelonephritis and PERRI. GI is consulted to consider PEG for question aspiration. Allergies Allergy/AdvReac Type Severity Reaction Status Date / Time fentanyl Allergy Severe itching/felt Verified 11/02/22 14:35 like throat closing salicylates Allergy Severe SHORTNESS Verified 11/02/22 14:35 OF BREATH Iodinated Contrast Media Allergy Intermediate EYES Verified 11/02/22 14:35 SWELLING/Hives amoxicillin [From Augmentin] Allergy Mild Rash Verified 11/02/22 14:35 aspirin Allergy Mild FACIAL Verified 11/02/22 14:35 SWELLING clavulanic acid Allergy Mild Rash Verified 11/02/22 14:35 [From Augmentin] hydromorphone Allergy Mild RASH/ITCHIN Verified 11/02/22 14:35 G meperidine AdvReac Intermediate ITCH Verified 11/02/22 14:35 morphine AdvReac Intermediate ITCH Verified 11/02/22 14:35 tramadol AdvReac Mild itch Verified 11/02/22 14:35 Home Medications Medication Instructions Recorded Confirmed Type atorvastatin 40 mg tablet (Lipitor) 40 mg PO QPM 07/12/18 11/17/22 History pantoprazole 40 mg tablet,delayed 40 mg PO BID 07/12/18 11/17/22 History release (Protonix) riboflavin (vitamin B2) 400 mg 400 mg PO QPM 07/12/18 11/17/22 History tablet cholecalciferol (vitamin D3) 50 2,000 unit PO QAM 05/16/19 11/17/22 History mcg (2,000 unit) capsule (Vitamin D3) albuterol sulfate 90 mcg/actuation 2 puff inhalation Q4H PRN 07/21/19 11/17/22 History aerosol inhaler Shortness Of Breath fluticasone fur. 100 mcg-umeclid 1 inh inhalation DAILY 12/11/20 11/17/22 History 62.5 mcg-vilant 25 mcg inhalat.powder (Trelegy Ellipta) metoprolol succinate 50 mg 50 mg PO HS 12/11/20 11/17/22 History tablet,extended release 24 hr glipizide 2.5 mg tablet, extended 2.5 mg PO DAILY 04/29/21 11/17/22 History release 24 hr (Glucotrol XL) oxcarbazepine 300 mg tablet 300 mg PO BID 12/22/21 11/17/22 History loperamide 2 mg capsule 2 mg PO TID PRN diarrhea #30 caps 01/18/22 11/17/22 Rx hydroxyzine HCl 10 mg tablet 10 mg PO HS 11/02/22 11/17/22 History magnesium oxide 400 mg (241.3 mg 400 mg PO DAILY 11/02/22 11/17/22 History magnesium) tablet metoprolol succinate 50 mg 25 mg PO DAILY 11/02/22 11/17/22 History tablet,extended release 24 hr oxybutynin chloride 5 mg tablet 5 mg PO DAILY 11/02/22 11/17/22 History L.acidop,casei,lactis,rham-B.lact,natalia 2 cap PO DAILY 10 days #20 caps 11/09/22 11/17/22 Rx 625 mg (10 billion cell) capsule (Advanced Probiotic) acetaminophen 325 mg tablet 650 mg PO Q8H PRN fever or pain 11/09/22 11/17/22 Rx #60 tabs cyanocobalamin (vitamin B-12) 100 100 mcg PO QAM #30 tabs 11/09/22 11/17/22 Rx mcg tablet (Vitamin B-12) ferrous gluconate 324 mg (38 mg 324 mg PO QAM #30 tabs 11/09/22 11/17/22 Rx iron) tablet folic acid 1 mg tablet 1 mg PO QAM #30 tabs 11/09/22 11/17/22 Rx ondansetron 4 mg disintegrating 4 mg PO Q8H PRN nausea and 11/09/22 11/17/22 Rx tablet vomiting #30 tabs Patient History Medical History (Updated 02/08/23 @ 16:47 by Johanna Harris DO) Anxiety Asthma well controlled per pt, rare inh use Bipolar disorder Chronic back pain Chronic headaches Chronic renal insufficiency stage 3, following with S nephrology ([place]) Chronic respiratory failure with hypoxia CKD (chronic kidney disease), stage III COPD (chronic obstructive pulmonary disease) Deep vein thrombosis LLE - COULD NOT RECALL DATE - REPORTS SHE WAS TREATED AT [facility] W/ BLOOD THINNERS Depression DM type 2 (diabetes mellitus, type 2) GERD (gastroesophageal reflux disease) History of colon cancer 2012 S/P BOWEL RESECTION. History of COVID-27 Sep 2020 HTN (hypertension) Hyperlipidemia Kidney stone Myocardial Infarction 06/2016--> [facility] -- CARDIAC CATH --> normal coronary anatomy without coronary obstruction but Plavix started per [facility] discharge summary On anticoagulant therapy plavix daily CALI (obstructive sleep apnea) Poor historian Renal colic s/p L ureteral stent 10/2021 followed by lithotripsy, stone extraction and stent exchange 11/2021 Renal cyst 7 cm thick walled as of early 2021 Takotsubo cardiomyopathy History of in 2015 with return to normal LV function Surgical History H/O hand surgery RIGHT History of appendectomy History of bilateral cataract extraction History of blepharoplasty History of cardiac cath 03/2018 - [place] - DENIES STENTS/ANGIOPLASTY - [facility] - FOLLOWS W/ DR. TORRES History of closure of ileostomy History of colectomy due to colon cancer History of colonoscopy History of cystoscopy History of esophageal dilatation History of esophagogastroduodenoscopy (EGD) History of hysterectomy History of kidney surgery at age 9 yrs "something was wrong and had to fix it" History of lithotripsy History of tooth extraction History of total abdominal hysterectomy and bilateral salpingo-oophorectomy Hx of cholecystectomy Family History (Updated 11/17/22 @ 13:47 by Taylor Hayden PA-C) Other Breast cancer Colorectal cancer Social History Smoking Status: Never smoker Second Hand Exposure: No; Hx Alcohol Use: No Hx Substance Use: No Preferred Language: Croatian Communication Ability: Effective Visual Impairment: No Limitations Hearing Ability: Normal Experimental Box Tester Required: No Beliefs That Will Affect Care: None marital status: Current Living Situation: Spouse Current Living Situation Comment: pt. lives downstairs and upstairs Other Information That Helps Us Care for You: No Feels Safe at Home: Yes Safety Concerns: Feels Safe At This Time Assistive Devices: Bedside Commode, Cane, Oxygen - Continuous, Walker and Wheelchair Results & Data ([facility]) Vital Signs (Past 12 Hours) Vital Signs Temp Pulse Resp BP BP Pulse Ox O2 Del Method 11/23/22 07:31 36.6 C 81 17 124/86 95 Room Air 11/23/22 03:56 36.6 C 81 20 139/83 95 Room Air 11/22/22 23:13 36.6 C 77 20 142/86 H 93 Room Air Laboratory Results WBC 9, Hb 9.6, Hct 30.98, Plts 190, PT 21, INR 1.0, Na 140, K 3.9, BUN 111, Cr 1.81, glucose 121. Diagnostic Findings Non contrast CTAP 11/17/22: 1. No significant change in the moderate dilatation of the left renal pelvis and mild left hydroureter with urothelial thickening of the left renal collecting system and adjacent fat stranding. This suggests a pyelitis with possible associated pyelonephritis. 2. Bladder wall thickening and adjacent fat stranding favors a cystitis. This is also unchanged. 3. Bilateral nephrolithiasis. No ureteral calculi. 4. Additional findings as described above.
[2022-11-23] MEDS: DAPTOmycin 500 MG in SYRINGE 0 ML IV SCH (11:10)
[2022-11-23] MEDS: MAGNESIUM OXIDE 400 MG TAB PO SCH ×2 (11:10→18:25)
[2022-11-23] MEDS: MoRPHine SULFATE 2 MG/ML CARP IV PRN ×2 (11:12→20:12)
--- NOTE | 2022-11-23 13:43 | Hospitalist Progress Note ---
Date of Service November 23, 2022 Assessment & Plan (1) PERRI (acute kidney injury): (2) CKD (chronic kidney disease), stage IV: Plan: per admitting service notes with addendum: Patient is 67-year-old female with PMH HTN, DM II, CKD IV, COPD, asthma, chronic respiratory failure with hypoxia on chronic 2 L oxygen, CALI, GERD, bipolar disorder, history of colon cancer s/p resection, history of renal calculi,history ureteral stent removal 01/2022, History of VRE and Klebsiella UTI in past, presented to ER for abnormal renal function labs. Recent admission for pyelonephritis, PERRI. 11/23 likely pre-renal from poor oral intake, also from sepsis Given IV fluids crea improving daily, from 2.5, now 1.8 monitor labs daily (3) Pyelonephritis: Plan: Sepsis secondary to above 11/02/22 Admission for pyelonephritis, at that time negative blood cultures and urine culture with multiple organisms probable skin agnes. Was treated with Rocephin, daptomycin. ID recommended treating Keflex and Zyvox for total of 14 days and Urology felt no intervention warranted. Patient was discharged on Keflex and Zyvox. Pt finished Keflex and Zyvox on 11/16/22 with continued left flank tenderness and urinary frequency and dysuria. Denies fevers Today in ER patient afebrile, vital stable. WBC: 15. UA suggestive UTI CT abdomen pelvis: No significant change in the moderate dilatation of the left renal pelvis and mild left hydroureter with urothelial thickening of the left renal collecting system and adjacent fat stranding. This suggests a pyelitis with possible associated pyelonephritis. Bladder wall thickening and adjacent fat stranding favors a cystitis. This is also unchanged. Bilateral nephrolithiasis. No ureteral calculi. 11/23 Patient placed on empiric daptomycin plus cefepime. Urine culture negative so far. Antibiotics continued as patient's clinical exam and CT abdomen consistent with pyelonephritis. Patient demonstrating slow progress. Urology service consulted, no interventions at this point. Infectious disease service consulted, awaiting recommendations. Remains afebrile, leukocytosis resolved however, still having L sided pain, improving rather slowly discussed with Urology Service, no plans for intervention Urine culture: negative so far Blood cultures: negative so far continue IV Dapto + Ceftriaxone for now ID consulted- awaiting recommendations Pain control, antiemetics (4) Hyperkalemia: Plan: K: 5.2 - resolved (5) DM type 2 (diabetes mellitus, type 2): Plan: A1c: 5.4 on 11/03/2022 - NovoLog sliding scale per protocol (6) Hypertension: Plan: - Continue metoprolol succinate (7) Hyperlipidemia: Plan: - Hold atorvastatin as receiving daptomycin (8) COPD (chronic obstructive pulmonary disease): (9) Chronic respiratory failure with hypoxia: Plan: On chronic 2 L oxygen No signs of exacerbation -Continue chronic 2 L oxygen via nasal cannula -Continue home inhalers (10) CALI (obstructive sleep apnea): Plan: - Not using CPAP (11) Bipolar disorder: Plan: - Continue home medication DVT Prophylaxis -Heparin SQ Conditional code: Wants CPR, defibrillation, meds, Does NOT want intubation, mechanical ventilation as per discussion with pt Follows with Dr Chand for routine care Disposition PT/OT recommending d/c home when medically stable (12) Eosinophilia: Plan: still persistent continue to monitor Admission and Anticipated Discharge Date Admission Date: November 18, 2022 Subjective Follow-up for left pyelonephritis, etc. Seen resting in bed, not in distress Appears somewhat tired Still having left-sided flank/CVA pain, slowly improving Pain triggers nausea mostly in the morning No fevers or chills No other symptoms Review of Systems Review of Systems: all noted and negative except for above Physical Exam Physical Exam: General- oriented x 3, not in distress, speaks in sentences with no effort or accessory muscle use Eyes- anicteric Neck- no JVD Lungs- clear BS bilaterally, no rales/wheezes Heart- normal rate, regular rhythm; no murmurs Abdomen- normal bowel sounds, nondistended, soft Positive moderate left CVA tenderness Extremities- no pretibial edema, no calf tenderness Neuro- alert, oriented x 3; no gross focal neurologic deficits Skin- warm & dry Results & Data Results & Data ([facility]) Vital Signs (Past 12 Hours) Vital Signs Temp Pulse Pulse Resp BP BP Pulse Ox 11/23/22 11:17 36.6 C 106 H 18 111/95 94 11/23/22 10:00 81 11/23/22 07:31 36.6 C 81 17 124/86 95 11/23/22 03:56 36.6 C 81 20 139/83 95 O2 Del Method 11/23/22 11:17 Room Air 11/23/22 10:00 11/23/22 07:31 Room Air 11/23/22 03:56 Room Air all noted and reviewed including below
--- NOTE | 2022-11-23 13:59 | Urology Progress Note ---
Date of Service November 23, 2022 Assessment & Plan (1) Acute pyelonephritis: Plan Afebrile, hemodynamically stable Creatinine slowly downtrending (1.81), no leukocytosis, Hgb 9.6 UC 2/8 showed no growth, BCx no growth to date CT showed some dilation of the left ureter with some evidence of pyelitis She has previously had obstruction from stones and tolerated stents very poorly Continue with conservative management with antibiotics for pyelitis/pyelonephritis She is pending ID consult - appreciate recs Continue supportive care Can add Tamsulosin and prn Pyridium for symptom management She prefers to manage conservatively and avoid stent placement will follow peripherally Admission and Anticipated Discharge Date Admission Date: November 18, 2022 Subjective Asked by hospital medicine service to revisit patient today due to ongoing left flank pain/nausea. Patient seen and examined at bedside this afternoon. She is awake and sitting up in bedside chair in no apparent distress. She reports ongoing left flank pain. Reports low appetite and nausea. She is voiding spontaneously. Notes occasional bladder pain, no dysuria or hematuria. No fever or chills. Review of Systems Constitutional: as per Subjective / HPI Gastrointestinal: as per Subjective / HPI Genitourinary: as per Subjective / HPI Physical Exam Constitutional: + obese; no acute distress Neck: normal visual inspection Respiratory: no respiratory distress and no labored breathing Gastrointestinal (Abdomen): Left flank/LLQ tenderness with palpation. Musculoskeletal: Head/Neck/Chest: normocephalic Neurologic: awake Psychiatric: Orientation: alert and oriented x 3 Results & Data ([facility]) Vital Signs (Past 12 Hours) Vital Signs Temp Pulse Pulse Resp BP BP Pulse Ox 11/23/22 11:17 36.6 C 106 H 18 111/95 94 11/23/22 10:00 81 11/23/22 07:31 36.6 C 81 17 124/86 95 11/23/22 03:56 36.6 C 81 20 139/83 95 O2 Del Method 11/23/22 11:17 Room Air 11/23/22 10:00 11/23/22 07:31 Room Air 11/23/22 03:56 Room Air PG Care Time/CCT Total # of Minutes Spent Total Time Spent with Patient: Total time spent is greater than 50% in coordination of care (as documented) at patient's floor/unit and/or counseling patient: Coding Level of Care Code 50567 SUB INP/OBS CARE 11/03MIN Diagnoses Acute pyelonephritis N10
[2022-11-23] MEDS: cefTRIAXone SODIUM 2,000 MG in DEXTROSE 5% 50 ML IV SCH (14:19)
[2022-11-23] MEDS: METOPROLOL SUCC 50MG EXT REL TAB PO SCH (20:31)
[2022-11-23] MEDS: hydrOXYzine HCl 10 MG TAB PO SCH (20:31)
[2022-11-24] MEDS: HEPARIN SOD 5,000 UNIT/0.5 ML VIAL SQ SCH ×3 (03:46→20:03)
[2022-11-24 07:35] LABS: BUN Creatinine Ratio 7.3 (10-20); Calcium 9.4 mg/dl (8.5-10.1); Est GFR (African American) 33.4 ml/min; Est GFR (Non-African American) 28.8 ml/min; Potassium 3.6 mmol/L (3.5-5.1)
[2022-11-24] MEDS: INSULIN ASPART PER UNIT SC SCH ×4 (09:14→20:55)
[2022-11-24] MEDS: FERROUS GLUCONATE 324 MG TAB PO SCH (09:16)
[2022-11-24] MEDS: FLUTICASONE FUROATE 100MCG 14 PUFFS/INHALER INH SCH (09:16)
[2022-11-24] MEDS: CYANOCOBALAMIN (B-12) 100 MCG TABLET PO SCH (09:16)
[2022-11-24] MEDS: ADVANCED PROBIOTIC 1250 MG CAPSULE PO SCH (09:17)
[2022-11-24] MEDS: FOLIC ACID 1 MG TAB PO SCH (09:17)
[2022-11-24] MEDS: METOPROLOL SUCC 25MG EXT REL TAB PO SCH (09:19)
[2022-11-24] MEDS: OXcarbazepine 150 MG TABLET PO SCH ×2 (09:20→20:02)
[2022-11-24] MEDS: UMECLIDINIUM/VILANTEROL 62.5/25MCG 7 PUFFS/INHALER INH SCH (09:21)
[2022-11-24] MEDS: OXYBUTYNIN CHLORIDE 5 MG TAB PO SCH (09:21)
[2022-11-24] MEDS: PANTOprazole 40 MG TAB PO SCH (09:21)
[2022-11-24] MEDS: PROMETHAZINE HCL 12.5 MG in SODIUM CHLORIDE 0.9% 50 ML IV PRN ×2 (09:22→20:01)
[2022-11-24] MEDS: MAGNESIUM OXIDE 400 MG TAB PO SCH (09:25)
--- NOTE | 2022-11-24 09:48 | Hospitalist Progress Note ---
Date of Service November 24, 2022 Assessment & Plan (1) PERRI (acute kidney injury): (2) CKD (chronic kidney disease), stage IV: Plan: 67-year-old female with PMH HTN, DM II, CKD IV, COPD, asthma, chronic respiratory failure with hypoxia on chronic 2 L oxygen, CALI, GERD, bipolar disorder, history of colon cancer s/p resection, history of renal calculi,history ureteral stent removal 01/2022, History of VRE and Klebsiella UTI in past, presented to ER for abnormal renal function labs. Recent admission for pyelonephritis, PERRI. Got some IVF PERRI improved Cr is 1.77 from 2.9 on admission Monitor Avoid nephrotoxins (3) Pyelonephritis: Plan: Sepsis Recent admission 11/02/22 for pyelonephritis. At that time negative blood cultures and urine culture with multiple organisms probable skin agnes. Was treated with Rocephin, daptomycin. ID recommended treating Keflex and Zyvox for total of 14 days and Urology felt no intervention warranted. Patient was discharged on Keflex and Zyvox. Pt finished Keflex and Zyvox on 11/16/22 with continued left flank tenderness and urinary frequency and dysuria. Denies fevers On presentation this time, she was afebrile in ER, vital stable. WBC: 15. UA suggestive UTI CT abdomen pelvis: No significant change in the moderate dilatation of the left renal pelvis and mild left hydroureter with urothelial thickening of the left renal collecting system and adjacent fat stranding. This suggests a pyelitis with possible associated pyelonephritis. Bladder wall thickening and adjacent fat stranding favors a cystitis. This is also unchanged. Bilateral nephro lithiasis. No ureteral calculi. Patient currently on empiric daptomycin plus cefepime. Urine culture negative so far. Urology service consulted, no interventions at this point. Remains afebrile, leukocytosis resolved ID consult viewed on [employer]. ID recommends stopping abx if cultures remain negative for 48h Will stop abx for now and monitor Pain may be related to stones only without actual infection. Needs to follow up with Urology outpatient Pain control Antiemetics (4) Hyperkalemia: Plan: K: 5.2 Hyperkalemia resolved (5) DM type 2 (diabetes mellitus, type 2): Plan: A1c: 5.4 on 11/03/2022 NovoLog sliding scale per protocol (6) Hypertension: Plan: Continue metoprolol succinate (7) Hyperlipidemia: Plan: Plan to resume atorvastatin on dc (8) COPD (chronic obstructive pulmonary disease): (9) Chronic respiratory failure with hypoxia: Plan: On chronic 2 L oxygen No signs of exacerbation -Continue chronic 2 L oxygen via nasal cannula -Continue home inhalers (10) CALI (obstructive sleep apnea): Plan: Not using CPAP (11) Bipolar disorder: Plan: Continue home medication DVT Prophylaxis Heparin SQ Conditional code: Wants CPR, defibrillation, meds, Does NOT want intubation, mechanical ventilation as per discussion with pt Follows with Dr Chand for routine care Disposition PT/OT recommending d/c home when medically stable Possible dc in 24-48h (12) Eosinophilia: Admission and Anticipated Discharge Date Admission Date: November 18, 2022 Subjective Patient seen and examined. Reports nausea, left flank pain. Reports pain is moderate, improving, occasionally referred to the groin. Denied any fever, diarrhea. Denies any cough, chest pain, shortness of breath Denies any dysuria. Reports improvement in frequency. Denies hematuria Physical Exam Constitutional: + well hydrated and + obese; no acute distress Eyes: PERRL, conjunctivae normal, anicteric sclerae ENMT: external ear and nose normal, oropharynx normal Respiratory: normal respiratory effort, lungs clear to auscultation Cardiovascular: Rate/Rhythm: regular rate and regular rhythm S1-S2 Gastrointestinal (Abdomen): normal bowel sounds, soft, nontender, no hepatosplenomegaly Musculoskeletal: no cyanosis or clubbing, extremities motor strength 5/5 Neurologic: PERRL, EOMI, accommodation nl, no face palsy, no dysarthria Psychiatric: A+Ox3, euthymic affect Genitourinary: Left CVA tenderness Results & Data Results & Data ([facility]) Vital Signs (Past 12 Hours) Vital Signs Temp Pulse Pulse Pulse Resp BP BP 11/24/22 07:18 36.5 C 79 16 107/68 11/24/22 03:43 36.7 C 80 16 109/67 11/23/22 22:10 95 H 11/23/22 22:00 36.7 C 94 H 20 96/76 L Pulse Ox O2 Del Method 11/24/22 07:18 95 Room Air 11/24/22 03:43 94 Room Air 11/23/22 22:10 11/23/22 22:00 92 Room Air Laboratory Results Abnormal lab results 11/23/22 11/24/22 Range/Units 11:16 05:24 Chloride 114 H (98-107) mmol/L Carbon Dioxide 18 L (21-32) mmol/L Creatinine 1.77 H (0.6-1.2) mg/dl BUN/Creatinine Ratio 7.3 L (10-20) POC Glucose 113 H (70-99) mg/dl Total Creatine Kinase 18 L (26-192) U/L
[2022-11-24] MEDS: MoRPHine SULFATE 2 MG/ML CARP IV PRN ×2 (12:19→20:01)
[2022-11-24] MEDS: hydrOXYzine HCl 10 MG TAB PO SCH (20:02)
[2022-11-24] MEDS: METOPROLOL SUCC 50MG EXT REL TAB PO SCH (20:02)
[2022-11-25] MEDS: MoRPHine SULFATE 2 MG/ML CARP IV PRN (03:12)
[2022-11-25] MEDS: HEPARIN SOD 5,000 UNIT/0.5 ML VIAL SQ SCH ×2 (03:17→12:02)
[2022-11-25 06:33] LABS: Hematocrit (blood only) 31.1 % (37.0-47.0); Hemoglobin 9.6 g/dl (12.0-16.0); Mean Corpuscular Hemoglobin 29.7 pg (25.0-34.0); Mean Corpuscular Hgb Conc 30.9 g/dL (32.0-36.0); Mean Corpuscular Volume 96.3 fL (80.0-100.0); Mean Platelet Volume 10.3 fL (9.4-12.4); Platelet Count 193 K/uL (130-400); RDW Coefficient of Variation 13.5 % (11.5-14.5); RDW Standard Deviation 46.4 fL (36.4-46.3); Red Blood Count 3.23 M/uL (4.20-5.40); White Blood Count 8.44 K/ul (4.8-10.8)
[2022-11-25 07:02] LABS: BUN Creatinine Ratio 8.2 (10-20); Calcium 9.3 mg/dl (8.5-10.1); Creatinine Clr Calc Pharmacy 27.2 ml/min; Est GFR (African American) 32.3 ml/min; Est GFR (Non-African American) 27.8 ml/min; Potassium 3.7 mmol/L (3.5-5.1)
[2022-11-25] MEDS: INSULIN ASPART PER UNIT SC SCH ×3 (08:42→17:18)
[2022-11-25] MEDS: CYANOCOBALAMIN (B-12) 100 MCG TABLET PO SCH (08:48)
[2022-11-25] MEDS: FERROUS GLUCONATE 324 MG TAB PO SCH (08:49)
[2022-11-25] MEDS: FOLIC ACID 1 MG TAB PO SCH (08:49)
[2022-11-25] MEDS: FLUTICASONE FUROATE 100MCG 14 PUFFS/INHALER INH SCH (08:49)
[2022-11-25] MEDS: ADVANCED PROBIOTIC 1250 MG CAPSULE PO SCH (08:50)
[2022-11-25] MEDS: METOPROLOL SUCC 25MG EXT REL TAB PO SCH (08:50)
[2022-11-25] MEDS: OXcarbazepine 150 MG TABLET PO SCH (08:51)
[2022-11-25] MEDS: OXYBUTYNIN CHLORIDE 5 MG TAB PO SCH (08:51)
[2022-11-25] MEDS: PANTOprazole 40 MG TAB PO SCH (08:52)
[2022-11-25] MEDS: MAGNESIUM OXIDE 400 MG TAB PO SCH (08:57)
[2022-11-25] MEDS: UMECLIDINIUM/VILANTEROL 62.5/25MCG 7 PUFFS/INHALER INH SCH (08:57)
[2022-11-25] MEDS ORDERED: TAMSULOSIN HCL 0.4 MG CAP PO SCH (09:00)
[2022-11-25] MEDS: PROMETHAZINE HCL 12.5 MG in SODIUM CHLORIDE 0.9% 50 ML IV PRN (09:15)
--- NOTE | 2022-11-25 12:08 | Discharge Summary ---
Discharge Summary Date of Service November 25, 2022 Notes For Next Care Provider Continue management of chronic medical problems Ensure follow up with Urology outpatient Medication Changes From Visit Started on tamsulosin 0.4mg daily Advised to use tylenol prn for pain and only use few tabs of oxycodone 5mg prescribed for severe pain not relieved by tylenol Admission HPI Per Admitting Provider Patient is 67-year-old female with PMH HTN, DM II, CKD IV, COPD, asthma, chronic respiratory failure with hypoxia on chronic 2 L oxygen, CALI, GERD, bipolar diso rder, history of colon cancer s/p resection, history of renal calculi,history ureteral stent removal 01/2022, History of VRE and Klebsiella UTI in past, presented to ER for abnormal renal function labs. History obtained from patient, and inpatient and outpatient chart review. Patient with recent [facility] admission 11/02/2022-11/09/2022 for acute left pyelonephritis, nausea, vomiting, PERRI on CKD treated with Rocephin, daptomycin. 11/02/2022 urine culture was with More than 3 types organisms present, all low counts next probable skin agnes. She had Negative blood cultures. ID was consulted and recommended treating Keflex and Zyvox for total of 14 days since repeat urine culture inconclusive. Urology was consulted during hospitalization and no intervention warranted. Patient was discharged on Keflex and Zyvox. Patient states that she finished her oral antibiotics yesterday. Reports since hospitalization has had continued left flank and left groin tenderness. Reports continued urinary frequency and dysuria. Denies hematuria. Denies fever, diaphoresis. Reports is always cold. She states she has had ongoing nausea and vomiting with 3-4 episodes of vomiting daily. Patient states yesterday did not have vomiting however has vomited 3 times today. Reports has a chronic loose stools with 3-4 episodes a day secondary to her history of colon resection. Denies any increased or change in BMs. Has chronic cough in the morning which clears throughout the day. Walks with assistance of walker or cane. Denies hematemesis, hematochezia, melena, EWING, dizziness, syncope, vision changes, neck pain, CP, SOB, palpitations, sore throat, choking, otalgia, rhinorrhea, increased weakness, extremity edema, rashes. Had outpatient labs 11/15/2022 with Creatinine of 2.4. Creatinine was 2.2 on a dmission 11/02/2022 that trended down to 1.9 on discharge on 11/09/2022. She was referred to ER for further evaluation. Admission Exam Per Admitting Provider General: no acute distress, chronic ill appearing, obese Head: normocephalic, atraumatic Eyes: conjunctiva non-injected, anicteric ENT: normal inspection external ears, nose, mucous membranes moist Neck: supple, trachea midline Lungs: clear, no respiratory distress on current 2L via NC, no wheezing/rhonchi/rales CV: RRR, no murmur, no pretibial edema Abd: normal BS, soft,+tenderness to palpation left CVA, left flank Ext: no cyanosis, no calf tenderness Neuro: A&O x 3, no focal deficits noted, normal affect Skin: warm, dry Principal Dx & Hospital Course #1 = Principal Diagnosis (1) PERRI (acute kidney injury): (2) CKD (chronic kidney disease), stage IV: 67-year-old female with PMH HTN, DM II, CKD IV, COPD, asthma, chronic respiratory failure with hypoxia on chronic 2 L oxygen, CALI, GERD, bipolar disorder, history of colon cancer s/p resection, history of renal calculi,history ureteral stent removal 01/2022, History of VRE and Klebsiella UTI in past, presented to ER for abnormal renal function labs. Recent admission for pyelonephritis, PERRI. Got some IVF PERRI improved Cr is 1.77 from 2.9 on admission Monitor Avoid nephrotoxins (3) Pyelonephritis: Met SIRS criteria Hence, Sepsis due to possible pyelonephritis Recent admission 11/02/22 for pyelonephritis. At that time negative blood cultures and urine culture with multiple organisms probable skin agnes. Was treated with Rocephin, daptomycin. ID recommended treating Keflex and Zyvox for total of 14 days and Urology felt no intervention warranted. Patient was discharged on Keflex and Zyvox. Pt finished Keflex and Zyvox on 11/16/22 with continued left flank tenderness and urinary frequency and dysuria. Denies fevers On presentation this time, she was afebrile in ER, vital stable. WBC: 15. UA suggestive UTI CT abdomen pelvis: No significant change in the moderate dilatation of the left renal pelvis and mild left hydroureter with urothelial thickening of the left renal collecting system and adjacent fat stranding. This suggests a pyelitis with possible associated pyelonephritis. Bladder wall thickening and adjacent fat stranding favors a cystitis. This is also unchanged. Bilateral nephrolithiasis. No ureteral calculi. Patient receivied IV daptomycin plus cefepime. Urine culture negative so far. Urology service consulted, no interventions at this point. Remains afebrile Leukocytosis resolved ID consulted and recommended stopping abx if cultures remain negative for 48h Patient received 6 days of antibiotics Pain may be related to stones only without actual infection. Needs to follow up with Urology outpatient (4) Hyperkalemia: Hyperkalemia resolved (5) DM type 2 (diabetes mellitus, type 2): A1c: 5.4 on 11/03/2022 Continue home antidiabetics (6) Hypertension: Continue metoprolol succinate (7) Hyperlipidemia: Continue home atorvastatin (8) COPD (chronic obstructive pulmonary disease): (9) Chronic respiratory failure with hypoxia: Currently on room air No signs of exacerbation (10) CALI (obstructive sleep apnea): Not using CPAP (11) Bipolar disorder: Continue home medication (12) Eosinophilia: Discharge Exam Constitutional + well hydrated and + obese; no acute distress Eyes PERRL, conjunctivae normal, anicteric sclerae ENMT external ear and nose normal, oropharynx normal Respiratory normal respiratory effort, lungs clear to auscultation Cardiovascular Rate/Rhythm: regular rate and regular rhythm S1 S2 Gastrointestinal (Abdomen) normal bowel sounds, soft, nontender, no hepatosplenomegaly Musculoskeletal no cyanosis or clubbing, extremities motor strength 5/5 Neurologic PERRL, EOMI, accommodation nl, no face palsy, no dysarthria Psychiatric A+Ox3, euthymic affect Genitourinary Left CVA tenderness (improved) Updated Medication List Medication Instructions Recorded Confirmed Type atorvastatin 40 mg tablet (Lipitor) 40 mg PO QPM 07/12/18 11/17/22 History pantoprazole 40 mg tablet,delayed 40 mg PO BID 07/12/18 11/17/22 History release (Protonix) riboflavin (vitamin B2) 400 mg 400 mg PO QPM 07/12/18 11/17/22 History tablet cholecalciferol (vitamin D3) 50 2,000 unit PO QAM 05/16/19 11/17/22 History mcg (2,000 unit) capsule (Vitamin D3) albuterol sulfate 90 mcg/actuation 2 puff inhalation Q4H PRN 07/21/19 11/17/22 History aerosol inhaler Shortness Of Breath fluticasone fur. 100 mcg-umeclid 1 inh inhalation DAILY 12/11/20 11/17/22 History 62.5 mcg-vilant 25 mcg inhalat.powder (Trelegy Ellipta) metoprolol succinate 50 mg 50 mg PO HS 12/11/20 11/17/22 History tablet,extended release 24 hr glipizide 2.5 mg tablet, extended 2.5 mg PO DAILY 04/29/21 11/17/22 History release 24 hr (Glucotrol XL) oxcarbazepine 300 mg tablet 300 mg PO BID 12/22/21 11/17/22 History loperamide 2 mg capsule 2 mg PO TID PRN diarrhea #30 caps 01/18/22 11/17/22 Rx hydroxyzine HCl 10 mg tablet 10 mg PO HS 11/02/22 11/17/22 History magnesium oxide 400 mg (241.3 mg 400 mg PO DAILY 11/02/22 11/17/22 History magnesium) tablet metoprolol succinate 50 mg 25 mg PO DAILY 11/02/22 11/17/22 History tablet,extended release 24 hr oxybutynin chloride 5 mg tablet 5 mg PO DAILY 11/02/22 11/17/22 History acetaminophen 325 mg tablet 650 mg PO Q8H PRN fever or pain 11/09/22 11/17/22 Rx #60 tabs cyanocobalamin (vitamin B-12) 100 100 mcg PO QAM #30 tabs 11/09/22 11/17/22 Rx mcg tablet (Vitamin B-12) ferrous gluconate 324 mg (38 mg 324 mg PO QAM #30 tabs 11/09/22 11/17/22 Rx iron) tablet folic acid 1 mg tablet 1 mg PO QAM #30 tabs 11/09/22 11/17/22 Rx ondansetron 4 mg disintegrating 4 mg PO Q8H PRN nausea and 11/09/22 11/17/22 Rx tablet vomiting #30 tabs oxycodone 5 mg tablet 5 mg PO BID PRN severe pain (scale 11/25/22 Rx score 7-10) #10 tabs tamsulosin 0.4 mg capsule 0.4 mg PO QAM #30 caps 11/25/22 Rx Hospital Stay Data Consultations 11/17/22 11:35 ED Decision to Admit Stat 11/17/22 16:20 Consult Infectious Diseases Routine Consult Urology Routine 11/22/22 08:00 Consult Infectious Diseases Routine Diagnostic Imagining Performed 11/17/22 10:36 CT abd pelvis wo con Stat Pending Results Patient Have Any Pending Studies at Discharge: No Discharge Instructions Given to Patient (Per Discharging Provider) Mrs Nesbitt You came to the hospital complaining of flank pain You were evaluated and managed for the above listed diagnoses. You are being discharged home. You were started on tamsulosin. Please use tylenol as needed for pain as we discussed. Use the oxycodone sparingly for severe pain not controlled by tylenol. Please ensure follow up with Urology and your Primary Doctor. It was a pleasure taking care of you. Total Time Total Time Spent Total Time Spent (In Minutes): 55 Total Time Includes: Examination of the Patient, Discharge Planning and Medication Reconciliation
== END 2022-11-25 19:15 | disposition home health service (06) | DRG 872 ==
LOC: EDINP 10:20 → ED 10:20 → SUATTDRO 12:34 → 2W 16:19 → SUATTDRO 11-18 11:41 → 2E 11-19 23:50

== ENCOUNTER 2023-04-06 17:58 | Inpatient (IN) ==
--- NOTE | 2023-04-06 18:08 | ED Triage Note ---
Date of Service April 06, 2023 History of Present Illness This patient was briefly evaluated while in triage. An abbreviated physical exam was performed. This patient is a 67-year-old Female who presents to the ED by ambulance to triage for left sided abdominal pain. She saw her PCP yesterday and was told she had a kidney stone. CT and U/S was reportedly 2 weeks ago. Pt has chronic kidney disease and follows with Dr Copeland of [facility] for Nephrology. Pain isn't getting better, so now presents to the ER. Physical Exam Limited Triage Exam: VITALS: Vitals are noted on the nurse's note and reviewed by myself. Vital signs stable. GENERAL: Well-developed, well-nourished, white female, who is in no acute distress and resting comfortably. Patient is cooperative with the examination. HEART: Regular rate and rhythm without murmurs gallops or rubs. LUNGS: Clear to auscultation bilaterally without wheezes, rales or rhonchi. No retractions or accessory muscle use. NEURO: Patient was alert and oriented to person place and time. CN II through X II grossly intact. Initial orders for labs and / or imaging were placed and patient was placed in the waiting area until a bed is available. Please see further documentation for the full ED course.
[2023-04-06 19:05] LABS: Alanine Aminotransferase 7 U/L (7-52); Albumin Globulin Ratio 1.1 (0.9-2); Albumin Level 4.1 gm/dl (3.4-5.0); Alkaline Phosphatase 122 U/L (34-104); Anion Gap 10 (3-11); Aspartate Aminotransferase 9 U/L (13-39); BUN Creatinine Ratio 10.7 (10-20); Bilirubin,Total 0.3 mg/dl (0.2-1.0); Blood Urea Nitrogen 39 mg/dl (6-23); Calcium 9.2 mg/dl (8.6-10.3); Carbon Dioxide 12 mmol/L (21-32); Chloride 115 mmol/L (98-107); Est GFR (African American) 13.9 ml/min; Globulin 3.6 gm/dl (2.5-4.0); Glucose 101 mg/dl (70-99(Fasting)); Lipase 91 U/L (11-82); Potassium 3.9 mmol/L (3.5-5.1); Sodium 137 mmol/L (136-145); Total Protein 7.7 gm/dl (6.0-8.3)
[2023-04-06 19:43] LABS: Basophils # (auto) 0.07 K/uL (0-0.2); Basophils % (auto) 0.7 %; Hematocrit (blood only) 38.9 % (37.0-47.0); Immature Granulocytes # (auto) 0.06 K/uL (0.01-0.20); Immature Granulocytes % (auto) 0.6 %; Lymphocytes # (auto) 2.39 K/uL (1.2-3.4); Lymphocytes % (auto) 23.8 %; Mean Corpuscular Hemoglobin 30.9 pg (25.0-34.0); Mean Corpuscular Hgb Conc 30.8 g/dL (32.0-36.0); Mean Corpuscular Volume 100.3 fL (80.0-100.0); Mean Platelet Volume 10.7 fL (9.4-12.4); Monocytes # (auto) 0.91 K/uL (0.11-0.59); Monocytes % (auto) 9.1 %; Neutrophils # (auto) 6.21 K/uL (1.40-6.50); Neutrophils % (auto) 61.8 %; Platelet Count 276 K/uL (130-400); Platelet Estimate Normal (Normal); RDW Coefficient of Variation 16.3 % (11.5-14.5); RDW Standard Deviation 59.7 fL (36.4-46.3); Red Blood Count 3.88 M/uL (4.20-5.40); White Blood Count 10.04 K/ul (4.8-10.8)
[2023-04-06] MEDS ORDERED: ONDANSETRON INJ 2 MG/ML 2 ML VIAL IV STA (19:45)
[2023-04-06] MEDS ORDERED: MoRPHine SULFATE 2 MG/ML CARP IV STA (19:45)
--- NOTE | 2023-04-06 20:00 | Emergency Department Note ---
Impression & Plan Acute on chronic renal insufficiency, Complicated UTI (urinary tract infection), Metabolic acidosis, normal anion gap (NAG), Hydronephrosis ED Provider Note NAME: NAYELI GUERRERO AGE: 67 SEX: F ARRIVES VIA: Ambulance INFORMANT: Patient ED PROVIDER(S): Sanjeev Moise MD CHIEF COMPLAINT: Acute on chronic renal insufficiency. Referred PLAN: Disposition: Admit MEDICAL DECISION MAKING: The patient is a pleasant 67-year-old woman with a past medical history of CKD and recurrent urinary tract infections with chronic left-sided hydroureteronephrosis who presents to the emergency department referred by PCP and nephrology for worsening renal function in the setting of the patient having ongoing left-sided abdominal pain which she reports has been present for over 4 months. She denies any fevers. She reports she did have nausea and vomiting yesterday due to her pain. She denies any blood in her urine or pain with urination. She denies fever, cough, congestion, chest pain or shortness of breath. On arrival the patient is no acute distress, afebrile stable vital signs. She is left-sided abdominal tenderness without guarding or rebound. WBC, H/H and platelets within normal limits. Chemistry demonstrates metabolic acidosis with normal anion gap suspicious for RTA in the setting of the patient's worsening renal insufficiency with bicarbonate of 12, creatinine is 3.6 from baseline of 1.8. BUN is 39. Electrolytes without significant abnormal ity LFTs unremarkable. Lipase 91, marginally above normal, nonspecific. Urinalysis and urine pH pending collection of sample. CT of the abdomen pelvis without contrast was performed and demonstrates atrophic and chronic distention of the left renal pelvis and ureter that is unchanged. Probable mild chronic cystitis is suggested. Patient agrees with plan for admission for further management. IV fluid hydration and analgesia provided. Case was discussed with Dr. John, [facility] hospitalist who will evaluate the patient for admission. Further management per admitting team. Triage Nursing notes reviewed and agree them. Prior/outside medical records reviewed Vital Signs: reviewed Differential diagnosis: Renal colic, UTI, appendicitis, diverticulitis, mesenteric ischemia, aortic pathology, infections, inflammatory bowel disease, PUD, biliary pathology, as well as other pathologies. ER treatment provided: See below. Diagnostics interpreted by me: Cardiac Monitoring: An order for continuous cardiac monitoring was placed and demonstrated normal sinus rhythm, 64 bpm. No ectopy. Laboratory studies: See below Imaging studies: See below Consultation(s): [facility] for [facility]. HPI: The patient is a pleasant 67-year-old woman with a past medical history of CKD and recurrent urinary tract infections with chronic left-sided hydroureteronephrosis who presents to the emergency department referred by PCP and nephrology for worsening renal function in the setting of the patient having ongoing left-sided abdominal pain which she reports has been present for over 4 months. She denies any fevers. She reports she did have nausea and vomiting yesterday due to her pain. She denies any blood in her urine or pain with urination. She denies fever, cough, congestion, chest pain or shortness of breath. ROS: See above HPI for pertinent positives & negatives. A total of 10 systems reviewed and were otherwise negative. VITALS:See Below PHYSICAL EXAMINATION: GENERAL: Awake, alert, fatigued-appearing, in no distress, BMI 36.6. HENT: Normocephalic, atraumatic. Oropharynx with dry mucous membranes and otherwise unremarkable. EYES: Normal conjunctiva. Sclera non-icteric. NECK: Supple. No nuchal rigidity. FROM. No JVD. RESPIRATORY: Clear to auscultation. CARDIAC: Regular rate, normal rhythm. Extremities warm and well perfused. Pulses equal. ABDOMEN: Soft, non-distended. Mild left-sided abdominal tenderness to palpation. No rebound or guarding. No masses. RECTAL: Deferred. MUSCULOSKELETAL: Chest examination reveals no tenderness. The back is symmetrical on inspection without obvious abnormality. There is no CVA tenderness to palpation. No joint edema. LOWER EXTREMITIES: Calves are equal size bilaterally and non-tender. No edema. No discoloration. NEURO: Normal sensorium. No sensory or motor deficits noted. SKIN: No rash or jaundice noted. Sanjeev Moise MD Past Med/Surg History Medical History Anxiety Asthma Bipolar disorder Chronic back pain Chronic headaches Chronic obstructive pulmonary disease 2L NC HS CKD (chronic kidney disease), stage III Stage 3 Follows with [facility] nephrology ([place]) Deep vein thrombosis LLE (remote hx), was treated with blood thinners Depression Diabetes mellitus, type 2 Diarrhea Flank pain with history of urolithiasis GERD (gastroesophageal reflux disease) History of colon cancer 2012 > s/p surgery History of COVID-19 x2, most recent 10/2022- symptoms resolved History of TIA (transient ischemic attack) Remote hx, "when I was younger" HTN (hypertension) Hyperlipidemia Kidney stone Mood disorder Morbid obesity with BMI of 40.0-44.9, adult Myocardial Infarction 2016 > cardiac cath, normal coronary anatomy without coronary obstruction Nausea and vomiting Poor historian Recurrent falls Recurrent UTI Renal cyst Sinus tachycardia No recent issues Sleep apnea No device since device recalled Takotsubo cardiomyopathy 2015 with return to normal LV function Surgical History H/O hand surgery Right History of anesthesia reaction Patient had cysto/stent (10/11/21) for kidney stone at [facility] with MAC. "Patient awake and comfortable"/no issues noted per post-op anesthesia progress note. Per 10/16/21 critical care note, patient developed acute metabolic encephalopathy- multifactorial and subsequently intubated 10/17/21 d/t "altered MS" > extubated 10/19/21 History of appendectomy History of bilateral cataract extraction History of blepharoplasty History of cardiac cath 2017 > no stents History of colectomy History of colonoscopy History of cystoscopy s/p L ureteral stent 10/2021 followed by lithotripsy, stone extraction and stent exchange 11/2021 History of esophageal dilatation History of esophagogastroduodenoscopy (EGD) History of kidney surgery at age 9 yrs "something was wrong and had to fix it" History of lithotripsy History of tooth extraction History of total abdominal hysterectomy and bilateral salpingo-oophorectomy Hx of cholecystectomy Family History Other Breast cancer Colorectal cancer No family history of adverse response to anesthesia Social History Smoking Status: Never smoker Second Hand Exposure: Yes (IN THE PAST); Do You Dip or Chew Tobacco: No; Hx Alcohol Use: No Hx Substance Use: No Preferred Language: Slovak Communication Ability: Effective Visual Impairment: No Limitations Hearing Ability: Normal Ammonia Distiller Required: No Beliefs That Will Affect Care: None marital status: Current Living Situation: Alone Current Living Situation Comment: LIVES IN APARTMENTS/ LIVES UPSTAIRS IN ANOTHER APARTMENT Feels Safe at Home: Yes Assistive Devices: Glasses, Walker and Wheelchair Allergies Allergies Allergy/AdvReac Type Severity Reaction Status Date / Time fentanyl Allergy Severe itching/felt Verified 02/09/23 15:06 like throat closing salicylates Allergy Severe SHORTNESS Verified 02/09/23 15:06 OF BREATH Iodinated Contrast Media Allergy Intermediate EYES Verified 02/09/23 15:06 SWELLING/Hives amoxicillin [From Augmentin] Allergy Mild Rash Verified 02/09/23 15:06 aspirin Allergy Mild FACIAL Verified 02/09/23 15:06 SWELLING clavulanic acid Allergy Mild Rash Verified 02/09/23 15:06 [From Augmentin] hydromorphone Allergy Mild RASH/ITCHIN Verified 02/09/23 15:06 G meperidine AdvReac Intermediate ITCH Verified 02/09/23 15:06 morphine AdvReac Intermediate ITCH Verified 02/09/23 15:06 tramadol AdvReac Mild itch Verified 02/09/23 15:06 Home Meds Home Medications Medication Instructions Recorded Confirmed atorvastatin 40 mg tablet (Lipitor) 40 mg PO QPM 07/12/18 04/06/23 pantoprazole 40 mg tablet,delayed 40 mg PO BID 07/12/18 04/06/23 release (Protonix) riboflavin (vitamin B2) 400 mg 400 mg PO QAM 07/12/18 04/06/23 tablet cholecalciferol (vitamin D3) 50 2,000 unit PO QAM 05/16/19 04/06/23 mcg (2,000 unit) capsule (Vitamin D3) albuterol sulfate 90 mcg/actuation 2 puff inhalation Q4H PRN 07/21/19 04/06/23 aerosol inhaler Shortness Of Breath metoprolol succinate 50 mg 50 mg PO HS 12/11/20 04/06/23 tablet,extended release 24 hr glipizide 2.5 mg tablet, extended 2.5 mg PO QAM 04/29/21 04/06/23 release 24 hr (Glucotrol XL) oxcarbazepine 300 mg tablet 300 mg PO BID 12/22/21 04/06/23 hydroxyzine HCl 10 mg tablet 10 mg PO HS 11/02/22 04/06/23 magnesium oxide 400 mg (241.3 mg 400 mg PO QAM 11/02/22 04/06/23 magnesium) tablet metoprolol succinate 50 mg 25 mg PO QAM 11/02/22 04/06/23 tablet,extended release 24 hr oxybutynin chloride 5 mg 5 mg PO QAM 02/09/23 04/06/23 tablet,extended release 24 hr ciprofloxacin HCl 500 mg tablet 500 mg PO BID 04/06/23 04/06/23 metronidazole 500 mg tablet 500 mg PO TID 04/06/23 04/06/23 Previous Rx's Medication Instructions Recorded loperamide 2 mg capsule 2 mg PO TID PRN diarrhea #30 caps 01/18/22 acetaminophen 325 mg tablet 650 mg PO Q8H PRN fever or pain 11/09/22 #60 tabs cyanocobalamin (vitamin B-12) 100 100 mcg PO QAM #30 tabs 11/09/22 mcg tablet (Vitamin B-12) ferrous gluconate 324 mg (38 mg 324 mg PO QAM #30 tabs 11/09/22 iron) tablet folic acid 1 mg tablet 1 mg PO QAM #30 tabs 11/09/22 ondansetron 4 mg disintegrating 4 mg PO Q8H PRN nausea and 11/09/22 tablet vomiting #30 tabs Results & Data (ED) Vital Signs Vital Signs - 24 hr 04/06/23 18:06 04/06/23 18:10 04/06/23 19:21 Temperature 36.8 C Temperature Source Temporal Artery Scan Pulse Rate 89 87 Pulse Rate from SpO2 Sensor Respiratory Rate 20 Respiratory Effort / Characteristics Non-Labored Respiratory Depth Normal Blood Pressure 132/88 Blood Pressure Mean 102 Pulse Oximetry 100 Oxygen Delivery Method Room Air Sepsis Recent Fever Within 48 Hours No Sepsis New/Unexplained Change in Mental Status N/A N/A Sepsis Action Taken by Nursing No Action Required No Action Required 04/06/23 23:24 04/06/23 19:30 04/06/23 20:00 Temperature Temperature Source Pulse Rate 82 82 83 Pulse Rate from SpO2 Sensor 68 Respiratory Rate 18 19 Respiratory Effort / Characteristics Respiratory Depth Blood Pressure 110/79 Blood Pressure Mean 89 Pulse Oximetry 98 Oxygen Delivery Method Sepsis Recent Fever Within 48 Hours Sepsis New/Unexplained Change in Mental Status Sepsis Action Taken by Nursing 04/06/23 20:27 04/06/23 20:33 04/06/23 21:00 Temperature Temperature Source Pulse Rate 106 H 84 76 Pulse Rate from SpO2 Sensor 87 Respiratory Rate 20 18 15 Respiratory Effort / Characteristics Respiratory Depth Blood Pressure 125/74 113/72 123/77 Blood Pressure Mean 91 85 92 Pulse Oximetry 100 Oxygen Delivery Method Sepsis Recent Fever Within 48 Hours Sepsis New/Unexplained Change in Mental Status Sepsis Action Taken by Nursing 04/06/23 21:30 04/06/23 22:38 04/06/23 23:00 Temperature Temperature Source Pulse Rate 77 80 85 Pulse Rate from SpO2 Sensor 83 84 Respiratory Rate 14 15 17 Respiratory Effort / Characteristics Respiratory Depth Blood Pressure 121/76 Blood Pressure Mean 91 Pulse Oximetry 100 99 Oxygen Delivery Method Sepsis Recent Fever Within 48 Hours Sepsis New/Unexplained Change in Mental Status Sepsis Action Taken by Nursing 04/06/23 23:30 04/07/23 00:00 04/07/23 00:30 Temperature Temperature Source Pulse Rate 83 77 Pulse Rate from SpO2 Sensor 90 84 77 Respiratory Rate 19 15 14 Respiratory Effort / Characteristics Respiratory Depth Blood Pressure 123/95 106/67 Blood Pressure Mean 104 80 Pulse Oximetry 99 99 98 Oxygen Delivery Method Sepsis Recent Fever Within 48 Hours Sepsis New/Unexplained Change in Mental Status Sepsis Action Taken by Nursing Laboratory Data Attestation: I reviewed the patient's lab results. 04/06/23 18:25 04/06/23 18:25 Lab Results 04/06/23 04/06/23 04/06/23 Range/Units 18:25 18:25 20:37 WBC 10.04 (4.8-10.8) K/ul RBC 3.88 L (4.20-5.40) M/uL Hgb 12.0 (12.0-16.0) g/dl Hct 38.9 (37.0-47.0) % MCV 100.3 H (80.0-100.0) fL MCH 30.9 (25.0-34.0) pg MCHC 30.8 L (32.0-36.0) g/dL RDW Std Deviation 59.7 H (36.4-46.3) fL RDW Coeff of Teresa 16.3 H (11.5-14.5) % Plt Count 276 (130-400) K/uL MPV 10.7 (9.4-12.4) fL Immature Gran % (Auto) 0.6 % Neut % (Auto) 61.8 % Lymph % (Auto) 23.8 % [place] % (Auto) 9.1 % Eos % (Auto) 4.0 % Baso % (Auto) 0.7 % Neut # (Auto) 6.21 (1.40-6.50) K/uL Lymph # (Auto) 2.39 (1.2-3.4) K/uL [place] # (Auto) 0.91 H (0.11-0.59) K/uL Eos # (Auto) 0.40 (0-0.50) K/uL Baso # (Auto) 0.07 (0-0.2) K/uL Immature Gran # (Auto) 0.06 (0.01-0.20) K/uL Platelet Estimate Normal (Normal) VBG pH (7.36-7.41) VBG pCO2 (38-50) mmHg VBG pO2 mmHg VBG HCO3 mmol/L VBG O2 Saturation % VBG Base Excess mEq/L Sodium 137 (136-145) mmol/L Potassium 3.9 (3.5-5.1) mmol/L Chloride 115 H (98-107) mmol/L Carbon Dioxide 12 L (21-32) mmol/L Anion Gap 10 (3-11) BUN 39 H (6-23) mg/dl Creatinine 3.66 H (0.6-1.2) mg/dl Est Cr Clr Drug Dosing Not Reportable Est GFR ( Amer) 13.9 ml/min Est GFR (Non-Af Amer) 12.0 ml/min BUN/Creatinine Ratio 10.7 (10-20) Glucose 101 H (70-99(Fasting)) mg/dl Calcium 9.2 (8.6-10.3) mg/dl Magnesium 2.0 (1.7-2.4) mg/dl Total Bilirubin 0.3 (0.2-1.0) mg/dl AST 9 L (13-39) U/L ALT 7 (7-52) U/L Alkaline Phosphatase 122 H (34-104) U/L Total Protein 7.7 (6.0-8.3) gm/dl Albumin 4.1 (3.4-5.0) gm/dl Globulin 3.6 (2.5-4.0) gm/dl Albumin/Globulin Ratio 1.1 (0.9-2) Lipase 91 H (11-82) U/L SARS-CoV-2, RNA, NAAT NEGATIVE (NEGATIVE) 04/06/23 04/06/23 Range/Units 20:47 23:55 WBC (4.8-10.8) K/ul RBC (4.20-5.40) M/uL Hgb (12.0-16.0) g/dl Hct (37.0-47.0) % MCV (80.0-100.0) fL MCH (25.0-34.0) pg MCHC (32.0-36.0) g/dL RDW Std Deviation (36.4-46.3) fL RDW Coeff of Teresa (11.5-14.5) % Plt Count (130-400) K/uL MPV (9.4-12.4) fL Immature Gran % (Auto) % Neut % (Auto) % Lymph % (Auto) % [place] % (Auto) % Eos % (Auto) % Baso % (Auto) % Neut # (Auto) (1.40-6.50) K/uL Lymph # (Auto) (1.2-3.4) K/uL [place] # (Auto) (0.11-0.59) K/uL Eos # (Auto) (0-0.50) K/uL Baso # (Auto) (0-0.2) K/uL Immature Gran # (Auto) (0.01-0.20) K/uL Platelet Estimate (Normal) VBG pH 7.05 L (7.36-7.41) VBG pCO2 39 (38-50) mmHg VBG pO2 42 mmHg VBG HCO3 11 mmol/L VBG O2 Saturation 66.5 % VBG Base Excess -18.8 mEq/L Sodium 139 (136-145) mmol/L Potassium 3.9 (3.5-5.1) mmol/L Chloride 117 H (98-107) mmol/L Carbon Dioxide 11 L (21-32) mmol/L Anion Gap 11 (3-11) BUN 38 H (6-23) mg/dl Creatinine 3.47 H (0.6-1.2) mg/dl Est Cr Clr Drug Dosing Not Reportable Est GFR ( Amer) 14.8 ml/min Est GFR (Non-Af Amer) 12.8 ml/min BUN/Creatinine Ratio 11.0 (10-20) Glucose 93 (70-99(Fasting)) mg/dl Calcium 8.9 (8.6-10.3) mg/dl Magnesium (1.7-2.4) mg/dl Total Bilirubin (0.2-1.0) mg/dl AST (13-39) U/L ALT (7-52) U/L Alkaline Phosphatase (34-104) U/L Total Protein (6.0-8.3) gm/dl Albumin (3.4-5.0) gm/dl Globulin (2.5-4.0) gm/dl Albumin/Globulin Ratio (0.9-2) Lipase (11-82) U/L SARS-CoV-2, RNA, NAAT (NEGATIVE) Administered Medications Ferrous Gluconate (Ferrous Gluconate 324 Mg Tab) [facility] [place] Stop: 05/07/23 08:59 Last Admin: 04/07/23 09:10 Dose: 324 mg Documented By: TIMOTEO Folic Acid (Folic Acid 1 Mg Tab) [facility] [place] Stop: 05/07/23 08:59 Last Admin: 04/07/23 09:10 Dose: 1 mg Documented By: TIMOTEO Heparin Sodium (Porcine) (Heparin Sod 5,000 Unit/0.5 Ml Vial) 5,000 units SQ Q8 [facility] Stop: 05/07/23 05:59 Last Admin: 04/07/23 06:15 Dose: 5,000 units Documented By: JOSE Promethazine HCl 12.5 mg/ (Sodium Chloride) 50.5 mls @ 202 mls/hr IV Q6H PRN PRN Reason: Nausea And Vomiting Stop: 05/07/23 00:53 Last Infusion: 04/07/23 12:25 Dose: 0 mls/hr Documented By: Admin: 04/07/23 12:04 Dose: 202 mls/hr Documented By: YANET Cefepime HCl 1,000 mg/ Syringe 10 mls @ 5 mls/min IV Q24H [facility]; Protocol Stop: 04/17/23 05:59 Last Admin: 04/07/23 06:15 Dose: 5 mls/min Documented By: JOSE Daptomycin 250 mg/ Syringe 5 mls @ 2.5 mls/min IV Q2D [facility]; Protocol Stop: 04/17/23 05:59 Last Admin: 04/07/23 06:15 Dose: 2.5 mls/min Documented By: JOSE Lactated Ringer's (Lr) 1,000 mls @ 100 mls/hr IV .Q10H [facility] Stop: 04/08/23 09:59 Last Admin: 04/07/23 10:21 Dose: 100 mls/hr Documented By: TIMOTEO Insulin Aspart (Insulin Aspart Per Unit Charge) 0 units SC ACHS [facility] Stop: 05/07/23 01:31 Last Admin: 04/07/23 11:27 Dose: Not Given Documented By: YANET Co-signed By: TIMOTEO Admin: 04/07/23 08:12 Dose: Not Given Documented By: Admin: 04/07/23 01:53 Dose: Not Given Documented By: JOSE Co-signed By: ANDREZ Metoprolol Succinate (Metoprolol Succ 25mg Ext Rel Tab) 25 [facility] [place] Stop: 05/07/23 08:59 Last Admin: 04/07/23 09:10 Dose: Not Given Documented By: TIMOTEO Oxcarbazepine (Oxcarbazepine 150 Mg Tablet) 300 mg PO BID [facility] Stop: 05/07/23 08:59 Last Admin: 04/07/23 09:09 Dose: 300 mg Documented By: TIMOTEO Oxybutynin Chloride (Oxybutynin Chloride Xl 5 Mg Tabcr) 5 mg PO QAM [facility] Stop: 05/07/23 08:59 Last Admin: 04/07/23 09:09 Dose: 5 mg Documented By: TIMOTEO Oxycodone HCl (Oxycodone Hcl Ir 5 Mg Tab (Immediate Release)) 5 mg PO Q4H PRN PRN Reason: Pain Stop: 04/21/23 00:47 Last Admin: 04/07/23 09:09 Dose: 5 mg Documented By: TIMOTEO Pantoprazole Sodium (Pantoprazole 40 Mg Tab) 40 mg PO BID [facility] Stop: 05/07/23 08:59 Last Admin: 04/07/23 09:09 Dose: 40 mg Documented By: TIMOTEO Discontinued Medications Sodium Chloride (Nss 1000ml) 1,000 mls @ 250 mls/hr IV .Q4H [facility] Stop: 05/06/23 19:29 Last Infusion: 04/07/23 05:58 Dose: 0 mls/hr Documented By: Infusion: 04/07/23 05:58 Dose: 0 mls/hr Documented By: Infusion: 04/07/23 00:58 Dose: 0 mls/hr Documented By: Admin: 04/07/23 00:57 Dose: 250 mls/hr Documented By: Infusion: 04/07/23 00:46 Dose: 0 mls/hr Documented By: Admin: 04/06/23 20:31 Dose: 250 mls/hr Documented By: JOSE Acetaminophen (Ofirmev) 1,000 mg in 100 mls @ 400 mls/hr IV NOW STA Stop: 04/06/23 23:17 Last Infusion: 04/07/23 00:46 Dose: 0 mls/hr Documented By: Admin: 04/07/23 00:03 Dose: 400 mls/hr Documented By: JOSE Lactated Ringer's (Lr) 1,000 mls @ 100 mls/hr IV .Q10H [facility] Stop: 04/07/23 10:05 Last Infusion: 04/07/23 10:22 Dose: 0 mls/hr Documented By: Admin: 04/07/23 01:43 Dose: 100 mls/hr Documented By: JOSE Morphine Sulfate (Morphine Sulfate 2 Mg/Ml Carp) 2 mg IV NOW STA Stop: 04/06/23 19:46 Last Admin: 04/06/23 20:31 Dose: 2 mg Documented By: JOSE Morphine Sulfate (Morphine Sulfate 2 Mg/Ml Carp) 2 mg IV NOW STA Stop: 04/07/23 04:32 Last Admin: 04/07/23 04:59 Dose: 2 mg Documented By: JOSE Ondansetron HCl (Ondansetron Inj 2 Mg/Ml 2 Ml Vial) 4 mg IV NOW STA Stop: 04/06/23 19:46 Last Admin: 04/06/23 20:31 Dose: 4 mg Documented By: JOSE Imaging Data Radiologist's Impression: Chest X-Ray 04/06/23 23:13 SINGLE VIEW CHEST CLINICAL HISTORY: Renal failure FINDINGS: An AP, portable, upright chest radiograph is compared to study dated . The examination is degraded by portable technique and apical lordotic positioning. The cardiomediastinal silhouette is unremarkable. There is mild bibasilar atelectasis. The lungs and pleural spaces are otherwise clear. No pneumothorax is seen. The skeletal structures are osteopenic. The bony thorax is grossly intact. Cholecystectomy clips are noted in the right upper quadrant. IMPRESSION: No active disease in the chest. ACT 112: Negative or not required by law. Electronically signed by: Caesar Yoon M.D. 04/07/2023 7:08 AM Abdomen/Pelvis CT 04/06/23 19:20 Exam(s): CT ABDOMEN + PELVIS Without Contrast EXAM: CT Abdomen and Pelvis Without Intravenous Contrast CLINICAL HISTORY: Reason for exam: acute on chronic renal insuff. TECHNIQUE: Axial computed tomography images of the abdomen and pelvis without intravenous contrast. CTDI is 24.81 mGy and DLP is 1086.68 mGy-cm. Automated exposure control was utilized for the study. A dose lowering technique was utilized adhering to the principles of ALARA. COMPARISON: February 25, 2023 FINDINGS: Lung bases: There are several granulomas in the lung base, unchanged. Mediastinum: There is a 5 cm hiatal hernia. ABDOMEN: Liver: Unremarkable. Gallbladder and bile ducts: Previous cholecystectomy. No biliary duct dilation is seen. Pancreas: Unremarkable. No ductal dilation. Spleen: Unremarkable. No splenomegaly. Adrenals: Unremarkable. No mass. Kidneys and ureters: Atrophy of the left kidney. There is a simple cysts in the upper pole measuring 5.6 cm and a 2.2 cm cyst in the lower pole, possibly representing the collecting system mild surrounding edema, unchanged. Multiple calyceal calculi are present on the left measuring up to 5 mm. Mild dilation of the proximal left ureter. No ureterolithiasis is seen. 4 mm parenchymal calcification of the right kidney. No hydronephrosis or ureterolithiasis on the right. Stomach and bowel: Most of the colon has been resected. There is a small bowel to distal sigmoid colon anastomosis. No acute inflammatory changes are seen involving the bowel. No obstruction. No mucosal thickening. PELVIS: Appendix: No findings to suggest acute appendicitis. Bladder: The urinary bladder is small and slight surrounding edema. Consider chronic cystitis. No stones. Reproductive: Unremarkable as visualized. ABDOMEN and PELVIS: Intraperitoneal space: Unremarkable. No free air. No significant fluid collection. Bones/joints: Mild degenerative changes throughout the spine. No acute fracture or subluxation is seen. Soft tissues: See above. Vasculature: Unremarkable. No abdominal aortic aneurysm. Lymph nodes: Unremarkable. No enlarged lymph nodes. IMPRESSION: The right kidney appears within normal limits. The left kidney is atrophic with chronic distention of the renal pelvis and ureter demonstrate mild surrounding inflammation, similar to previous. Probable mild chronic cystitis as well. Most of the colon has been resected. There is a small bowel to distal sigmoid colon anastomosis. No acute inflammatory changes are seen involving the bowel. Electronically signed by: Toy Jo MD 04/06/23 22:39 PM Chest X-Ray 04/06/23 23:13 SINGLE VIEW CHEST CLINICAL HISTORY: Renal failure FINDINGS: An AP, portable, upright chest radiograph is compared to study dated 11/02/2022. The examination is degraded by portable technique and apical lordotic positioning. The cardiomediastinal silhouette is unremarkable. There is mild bibasilar atelectasis. The lungs and pleural spaces are otherwise clear. No pneu mothorax is seen. The skeletal structures are osteopenic. The bony thorax is grossly intact. Cholecystectomy clips are noted in the right upper quadrant. IMPRESSION: No active disease in the chest. ACT 112: Negative or not required by law. Electronically signed by: Caesar Yoon M.D. 04/07/2023 7:08 AM Discharge Plan Visit Data Chief Complaint: Abnormal Labs/Diagnostic Testing Stated Complaint: ABNORMAL LABS, ?KIDNEY STONE ED Provider: Sanjeev Moise Discharge Problem: Acute on chronic renal insufficiency, Complicated UTI (urinary tract infection), Metabolic acidosis, normal anion gap (NAG), Hydronephrosis Patient Disposition: Admitted As Inpatient Discharge Instructions Interventions: ED Discharge Assessment Last Done: 04/07/23 01:28
[2023-04-06] MEDS: SODIUM CHLORIDE 0.9% 1000ML 1,000 ML IV SCH (20:31)
[2023-04-06 21:04] LABS: Base Excess VBG -18.8 mEq/L; HCO3 VBG 11 mmol/L; Oxygen Saturation VBG 66.5 %; PCO2 VBG 39 mmHg (38-50); PO2 VBG 42 mmHg; pH VBG 7.05 (7.36-7.41)
--- NOTE | 2023-04-06 22:40 | CT Scan Report ---
Exam(s): CT ABDOMEN + PELVIS Without Contrast EXAM: CT Abdomen and Pelvis Without Intravenous Contrast CLINICAL HISTORY: Reason for exam: acute on chronic renal insuff. TECHNIQUE: Axial computed tomography images of the abdomen and pelvis without intravenous contrast. CTDI is 24.81 mGy and DLP is 1086.68 mGy-cm. Automated exposure control was utilized for the study. A dose lowering technique was utilized adhering to the principles of ALARA. COMPARISON: February 25, 2023 FINDINGS: Lung bases: There are several granulomas in the lung base, unchanged. Mediastinum: There is a 5 cm hiatal hernia. ABDOMEN: Liver: Unremarkable. Gallbladder and bile ducts: Previous cholecystectomy. No biliary duct dilation is seen. Pancreas: Unremarkable. No ductal dilation. Spleen: Unremarkable. No splenomegaly. Adrenals: Unremarkable. No mass. Kidneys and ureters: Atrophy of the left kidney. There is a simple cysts in the upper pole measuring 5.6 cm and a 2.2 cm cyst in the lower pole, possibly representing the collecting system mild surrounding edema, unchanged. Multiple calyceal calculi are present on the left measuring up to 5 mm. Mild dilation of the proximal left ureter. No ureterolithiasis is seen. 4 mm parenchymal calcification of the right kidney. No hydronephrosis or ureterolithiasis on the right. Stomach and bowel: Most of the colon has been resected. There is a small bowel to distal sigmoid colon anastomosis. No acute inflammatory changes are seen involving the bowel. No obstruction. No mucosal thickening. PELVIS: Appendix: No findings to suggest acute appendicitis. Bladder: The urinary bladder is small and slight surrounding edema. Consider chronic cystitis. No stones. Reproductive: Unremarkable as visualized. ABDOMEN and PELVIS: Intraperitoneal space: Unremarkable. No free air. No significant fluid collection. Bones/joints: Mild degenerative changes throughout the spine. No acute fracture or subluxation is seen. Soft tissues: See above. Vasculature: Unremarkable. No abdominal aortic aneurysm. Lymph nodes: Unremarkable. No enlarged lymph nodes. IMPRESSION: The right kidney appears within normal limits. The left kidney is atrophic with chronic distention of the renal pelvis and ureter demonstrate mild surrounding inflammation, similar to previous. Probable mild chronic cystitis as well. Most of the colon has been resected. There is a small bowel to distal sigmoid colon anastomosis. No acute inflammatory changes are seen involving the bowel. Electronically signed by: Toy Jo MD 04/06/23 22:39 PM
[2023-04-06] MEDS ORDERED: ACETAMINOPHEN 1,000 MG/100 ML VIAL IV STA (23:03)
[2023-04-07] MEDS ORDERED: LACTATED RINGER'S 1,000 ML IV STA (00:06)
[2023-04-07 00:35] LABS: Anion Gap 11 (3-11); Blood Urea Nitrogen 38 mg/dl (6-23); Calcium 8.9 mg/dl (8.6-10.3); Carbon Dioxide 11 mmol/L (21-32); Chloride 117 mmol/L (98-107); Est GFR (African American) 14.8 ml/min; Est GFR (Non-African American) 12.8 ml/min; Glucose 93 mg/dl (70-99(Fasting)); Potassium 3.9 mmol/L (3.5-5.1); Sodium 139 mmol/L (136-145)
--- NOTE | 2023-04-07 00:44 | History & Physical Report ---
Date of Service April 07, 2023 Assessment & Plan (1) Complicated UTI (urinary tract infection): Plan: No overt sepsis for now ARF on CKD secondary to illness NAGMA secondary to kidney dysfunction chronic diastolic heart failure (EF 60 to 65%, TTE 2019), patient on the dry side hx chronic respiratory failure/OHS/COPD/bronchiectasis as per records, baseline lung status HTN, BP on the lower side hyperlipidemia on statin Rx, DM 2 on oral medications, well-controlled as of recent hemoglobin A1c of 4.8 this month chronic anemia, hemoglobin at baseline colon cancer status post surgery anxiety/mood disorder, at baseline history of VRE UTI as per records. Medical telemetry urine CS, Daptomycin, Cefepime given microbiologic history Monitor creatinine response to IVF, Nephrology consult if without improvement ISS BG goal 1 10-1 40, carb count coverage DVT prophylaxis. Heparin subcu DNR as per patient Text document was generated using [employer] voice recognition software. It may contain grammatical or spelling errors. Kindly contact undersigned for clarification of any documentation item in question. History of Present Illness Chief Complaint: Left-sided sided abdominal pain, abnormal blood work Primary Care Provider: Lo Chand DO History obtained from patient and records. Medical history significant for chronic diastolic heart failure (EF 60 to 65%, TTE 2019), chronic respiratory failure, OHS as per records, HTN, hyperlipidemia, COPD/bronchiectasis as per records, DM 2 on oral medications, CRI (baseline creatinine 2 as of December 2022), chronic anemia (baseline hemoglobin 11 ), colon cancer status post surgery, history of bleeding renal cyst status post embolization, history of myoclonic jerks as per records, anxiety/mood disorder, urolithiasis, ambulatory dysfunction, history of VRE UTI as per records. Last confinement November 2022 for ARF on CKD. Creatinine improved to baseline on discharge. Patient noted worsening of chronic lower abdominal pain the last few days. Some nausea and emesis. No headache, no unusual chest pain, no unusual shortness of breath. Patient seen at PCP's office 2 days ago. Cipro and Flagyl prescribed for presumptive diverticulitis. Outpatient labs and CT abdomen pelvis requested. Serum creatinine noted to be 3.6. Patient directed to ER for further evaluation. Medical History as above Surgical History : Right lesion excision, bowel surgery, kidney stone procedure, cataract surgery, cholecystectomy, ALLEN/BSO Family History : Breast cancer, DM, liver disease Personal/Social history : Non-smoker, no EtOH intake, disabled Allergies Allergy/AdvReac Type Severity Reaction Status Date / Time fentanyl Allergy Severe itching/felt Verified 02/09/23 15:06 like throat closing salicylates Allergy Severe SHORTNESS Verified 02/09/23 15:06 OF BREATH Iodinated Contrast Media Allergy Intermediate EYES Verified 02/09/23 15:06 SWELLING/Hives amoxicillin [From Augmentin] Allergy Mild Rash Verified 02/09/23 15:06 aspirin Allergy Mild FACIAL Verified 02/09/23 15:06 SWELLING clavulanic acid Allergy Mild Rash Verified 02/09/23 15:06 [From Augmentin] hydromorphone Allergy Mild RASH/ITCHIN Verified 02/09/23 15:06 G meperidine AdvReac Intermediate ITCH Verified 02/09/23 15:06 morphine AdvReac Intermediate ITCH Verified 02/09/23 15:06 tramadol AdvReac Mild itch Verified 02/09/23 15:06 Home Medications Medication Instructions Recorded Confirmed Type atorvastatin 40 mg tablet (Lipitor) 40 mg PO QPM 07/12/18 04/06/23 History pantoprazole 40 mg tablet,delayed 40 mg PO BID 07/12/18 04/06/23 History release (Protonix) riboflavin (vitamin B2) 400 mg 400 mg PO QAM 07/12/18 04/06/23 History tablet cholecalciferol (vitamin D3) 50 2,000 unit PO QAM 05/16/19 04/06/23 History mcg (2,000 unit) capsule (Vitamin D3) albuterol sulfate 90 mcg/actuation 2 puff inhalation Q4H PRN 07/21/19 04/06/23 History aerosol inhaler Shortness Of Breath metoprolol succinate 50 mg 50 mg PO HS 12/11/20 04/06/23 History tablet,extended release 24 hr glipizide 2.5 mg tablet, extended 2.5 mg PO QAM 04/29/21 04/06/23 History release 24 hr (Glucotrol XL) oxcarbazepine 300 mg tablet 300 mg PO BID 12/22/21 04/06/23 History loperamide 2 mg capsule 2 mg PO TID PRN diarrhea #30 caps 01/18/22 04/06/23 Rx hydroxyzine HCl 10 mg tablet 10 mg PO HS 11/02/22 04/06/23 History magnesium oxide 400 mg (241.3 mg 400 mg PO QAM 11/02/22 04/06/23 History magnesium) tablet metoprolol succinate 50 mg 25 mg PO QAM 11/02/22 04/06/23 History tablet,extended release 24 hr acetaminophen 325 mg tablet 650 mg PO Q8H PRN fever or pain 11/09/22 04/06/23 Rx #60 tabs cyanocobalamin (vitamin B-12) 100 100 mcg PO QAM #30 tabs 11/09/22 04/06/23 Rx mcg tablet (Vitamin B-12) ferrous gluconate 324 mg (38 mg 324 mg PO QAM #30 tabs 11/09/22 04/06/23 Rx iron) tablet folic acid 1 mg tablet 1 mg PO QAM #30 tabs 11/09/22 04/06/23 Rx ondansetron 4 mg disintegrating 4 mg PO Q8H PRN nausea and 11/09/22 04/06/23 Rx tablet vomiting #30 tabs oxybutynin chloride 5 mg 5 mg PO QAM 02/09/23 04/06/23 History tablet,extended release 24 hr ciprofloxacin HCl 500 mg tablet 500 mg PO BID 04/06/23 04/06/23 History metronidazole 500 mg tablet 500 mg PO TID 04/06/23 04/06/23 History Past Med/Surg History Medical History Anxiety Asthma Bipolar disorder Chronic back pain Chronic headaches Chronic obstructive pulmonary disease 2L NC HS CKD (chronic kidney disease), stage III Stage 3 Follows with [facility] nephrology ([place]) Deep vein thrombosis LLE (remote hx), was treated with blood thinners Depression Diabetes mellitus, type 2 Diarrhea Flank pain with history of urolithiasis GERD (gastroesophageal reflux disease) History of colon cancer 2012 > s/p surgery History of COVID-19 x2, most recent 10/2022- symptoms resolved History of TIA (transient ischemic attack) Remote hx, "when I was younger" HTN (hypertension) Hyperlipidemia Kidney stone Mood disorder Morbid obesity with BMI of 40.0-44.9, adult Myocardial Infarction 2016 > cardiac cath, normal coronary anatomy without coronary obstruction Nausea and vomiting Poor historian Recurrent falls Recurrent UTI Renal cyst Sinus tachycardia No recent issues Sleep apnea No device since device recalled Takotsubo cardiomyopathy 2016 with return to normal LV function Surgical History H/O hand surgery Right History of anesthesia reaction Patient had cysto/stent (10/11/21) for kidney stone at [facility] with MAC. "Patient awake and comfortable"/no issues noted per post-op anesthesia progress note. Per 10/16/21 critical care note, patient developed acute metabolic encephalopathy- multifactorial and subsequently intubated 10/17/21 d/t "altered MS" > extubated 10/19/21 History of appendectomy History of bilateral cataract extraction History of blepharoplasty History of cardiac cath 2017 > no stents History of colectomy History of colonoscopy History of cystoscopy s/p L ureteral stent 10/2021 followed by lithotripsy, stone extraction and stent exchange 11/2021 History of esophageal dilatation History of esophagogastroduodenoscopy (EGD) History of kidney surgery at age 9 yrs "something was wrong and had to fix it" History of lithotripsy History of tooth extraction History of total abdominal hysterectomy and bilateral salpingo-oophorectomy Hx of cholecystectomy Family History Other Breast cancer Colorectal cancer No family history of adverse response to anesthesia Social History Smoking Status: Never smoker Second Hand Exposure: Yes (IN THE PAST); Do You Dip or Chew Tobacco: No; Hx Alcohol Use: No Hx Substance Use: No Preferred Language: Albanian Communication Ability: Effective Visual Impairment: No Limitations 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[employer] Economics Required: No Beliefs That Will Affect Care: None marital status: Current Living Situation: Alone Current Living Situation Comment: LIVES IN APARTMENTS/ LIVES UPSTAIRS IN ANOTHER APARTMENT Feels Safe at Home: Yes Assistive Devices: Glasses, Walker and Wheelchair Review of Systems Review of Systems: As per HPI, all other systems reviewed and negative Physical Exam Physical Exam: GENERAL: uncomfortable, obese, no respiratory distress SKIN: Pallor, warm HEENT: Pale palpebral conjunctivae, no ptosis, dry buccal mucosa NECK : Supple, short neck, no tenderness CHEST : Decreased breath sounds, no tenderness HEART : RRR, no obvious murmurs ABDOMEN: Some distention, hypogastric tenderness EXTREMITIES : Minimal LE swelling, no LE tenderness, no other conspicuous deformities noted NEUROLOGIC : Coherent, no facial asymmetry, no other gross focality Results & Data Results & Data Vital Signs (Past 12 Hours) Vital Signs Temp Pulse Resp BP Pulse Ox O2 Del Method 04/06/23 23:24 82 04/06/23 19:21 87 04/06/23 18:06 36.8 C 89 20 132/88 100 Room Air Laboratory Results Laboratory Results WBC 10.04 K/ul (4.8-10.8) 04/06/23 18:25 RBC 3.88 M/uL (4.20-5.40) L 04/06/23 18:25 Hgb 12.0 g/dl (12.0-16.0) 04/06/23 18:25 Hct 38.9 % (37.0-47.0) 04/06/23 18:25 MCV 100.3 fL (80.0-100.0) H 04/06/23 18:25 MCH 30.9 pg (25.0-34.0) 04/06/23 18:25 MCHC 30.8 g/dL (32.0-36.0) L 04/06/23 18:25 RDW Std Deviation 59.7 fL (36.4-46.3) H 04/06/23 18:25 RDW Coeff of Teresa 16.3 % (11.5-14.5) H 04/06/23 18:25 Plt Count 276 K/uL (130-400) 04/06/23 18:25 MPV 10.7 fL (9.4-12.4) 04/06/23 18:25 Immature Gran % (Auto) 0.6 % 04/06/23 18:25 Neut % (Auto) 61.8 % 04/06/23 18:25 Lymph % (Auto) 23.8 % 04/06/23 18:25 Steele % (Auto) 9.1 % 04/06/23 18:25 Eos % (Auto) 4.0 % 04/06/23 18:25 Baso % (Auto) 0.7 % 04/06/23 18:25 Neut # (Auto) 6.21 K/uL (1.40-6.50) 04/06/23 18:25 Lymph # (Auto) 2.39 K/uL (1.2-3.4) 04/06/23 18:25 Steele # (Auto) 0.91 K/uL (0.11-0.59) H 04/06/23 18:25 Eos # (Auto) 0.40 K/uL (0-0.50) 04/06/23 18:25 Baso # (Auto) 0.07 K/uL (0-0.2) 04/06/23 18:25 Immature Gran # (Auto) 0.06 K/uL (0.01-0.20) 04/06/23 18:25 Platelet Estimate Normal (Normal) 04/06/23 18:25 VBG pH 7.05 (7.36-7.41) L 04/06/23 20:47 VBG pCO2 39 mmHg (38-50) 04/06/23 20:47 VBG pO2 42 mmHg 04/06/23 20:47 VBG HCO3 11 mmol/L 04/06/23 20:47 VBG O2 Saturation 66.5 % 04/06/23 20:47 VBG Base Excess -18.8 mEq/L 04/06/23 20:47 Sodium 139 mmol/L (136-145) 04/06/23 23:55 Potassium 3.9 mmol/L (3.5-5.1) 04/06/23 23:55 Chloride 117 mmol/L (98-107) H 04/06/23 23:55 Carbon Dioxide 11 mmol/L (21-32) L 04/06/23 23:55 Anion Gap 11 (3-11) 04/06/23 23:55 BUN 38 mg/dl (6-23) H 04/06/23 23:55 Creatinine 3.47 mg/dl (0.6-1.2) H 04/06/23 23:55 Est Cr Clr Drug Dosing Not Reportable 04/06/23 23:55 Est GFR ( Amer) 14.8 ml/min 04/06/23 23:55 Est GFR (Non-Af Amer) 12.8 ml/min 04/06/23 23:55 BUN/Creatinine Ratio 11.0 (10-20) 04/06/23 23:55 Glucose 93 mg/dl (70-99(Fasting)) 04/06/23 23:55 Calcium 8.9 mg/dl (8.6-10.3) 04/06/23 23:55 Magnesium 2.0 mg/dl (1.7-2.4) 04/06/23 18:25 Total Bilirubin 0.3 mg/dl (0.2-1.0) 04/06/23 18:25 AST 9 U/L (13-39) L 04/06/23 18:25 ALT 7 U/L (7-52) 04/06/23 18:25 Alkaline Phosphatase 122 U/L (34-104) H 04/06/23 18:25 Total Protein 7.7 gm/dl (6.0-8.3) 04/06/23 18:25 Albumin 4.1 gm/dl (3.4-5.0) 04/06/23 18:25 Globulin 3.6 gm/dl (2.5-4.0) 04/06/23 18:25 Albumin/Globulin Ratio 1.1 (0.9-2) 04/06/23 18:25 Lipase 91 U/L (11-82) H 04/06/23 18:25 SARS-CoV-2, RNA, NAAT NEGATIVE (NEGATIVE) 04/06/23 20:37 Impressions Abdomen/Pelvis CT 04/06/23 19:20 Exam(s): CT ABDOMEN + PELVIS Without Contrast EXAM: CT Abdomen and Pelvis Without Intravenous Contrast CLINICAL HISTORY: Reason for exam: acute on chronic renal insuff. TECHNIQUE: Axial computed tomography images of the abdomen and pelvis without intravenous contrast. CTDI is 24.81 mGy and DLP is 1086.68 mGy-cm. Automated exposure control was utilized for the study. A dose lowering technique was utilized adhering to the principles of ALARA. COMPARISON: February 25, 2023 FINDINGS: Lung bases: There are several granulomas in the lung base, unchanged. Mediastinum: There is a 5 cm hiatal hernia. ABDOMEN: Liver: Unremarkable. Gallbladder and bile ducts: Previous cholecystectomy. No biliary duct dilation is seen. Pancreas: Unremarkable. No ductal dilation. Spleen: Unremarkable. No splenomegaly. Adrenals: Unremarkable. No mass. Kidneys and ureters: Atrophy of the left kidney. There is a simple cysts in the upper pole measuring 5.6 cm and a 2.2 cm cyst in the lower pole, possibly representing the collecting system mild surrounding edema, unchanged. Multiple calyceal calculi are present on the left measuring up to 5 mm. Mild dilation of the proximal left ureter. No ureterolithiasis is seen. 4 mm parenchymal calcification of the right kidney. No hydronephrosis or ureterolithiasis on the right. Stomach and bowel: Most of the colon has been resected. There is a small bowel to distal sigmoid colon anastomosis. No acute inflammatory changes are seen involving the bowel. No obstruction. No mucosal thickening. PELVIS: Appendix: No findings to suggest acute appendicitis. Bladder: The urinary bladder is small and slight surrounding edema. Consider chronic cystitis. No stones. Reproductive: Unremarkable as visualized. ABDOMEN and PELVIS: Intraperitoneal space: Unremarkable. No free air. No significant fluid collection. Bones/joints: Mild degenerative changes throughout the spine. No acute fracture or subluxation is seen. Soft tissues: See above. Vasculature: Unremarkable. No abdominal aortic aneurysm. Lymph nodes: Unremarkable. No enlarged lymph nodes. IMPRESSION: The right kidney appears within normal limits. The left kidney is atrophic with chronic distention of the renal pelvis and ureter demonstrate mild surrounding inflammation, similar to previous. Probable mild chronic cystitis as well. Most of the colon has been resected. There is a small bowel to distal sigmoid colon anastomosis. No acute inflammatory changes are seen involving the bowel. Electronically signed by: Toy Jo MD 04/06/23 22:39 PM Diagnostic Findings Chest x-ray per my interpretation atelectasis
[2023-04-07] MEDS: SODIUM CHLORIDE 0.9% 1000ML 1,000 ML IV SCH (00:57)
[2023-04-07] MEDS ORDERED: GLUCAGON FOR INJ 1 MG VIAL SQ PRN (01:32)
[2023-04-07] MEDS ORDERED: DEXTROSE 50% 50 ML SYRINGE IV PRN (01:32)
[2023-04-07] MEDS ORDERED: CARBOHYDRATES FOR HYPOGLYCEMIA PO PRN (01:32)
[2023-04-07] MEDS ORDERED: GLUCOSE 10 TAB/TUBE PO PRN (01:32)
[2023-04-07] MEDS ORDERED: GLUCOSE 40% GEL 15 GM TUBE PO PRN (01:32)
[2023-04-07] MEDS: INSULIN ASPART PER UNIT CHARGE SC SCH ×5 (01:53→20:27)
[2023-04-07] MEDS ORDERED: MoRPHine SULFATE 2 MG/ML CARP IV STA (04:31)
[2023-04-07] MEDS ORDERED: MoRPHine SULFATE 2 MG/ML CARP IV PRN (04:31)
[2023-04-07 04:53] LABS: Appearance Urine Turbid (Clear); Bacteria Urine Automated Negative (Negative); Bilirubin Urine Negative (Negative); Blood Urine 2+ (Negative); Color Urine Yellow; Glucose Urine UA Negative (Negative); Ketones Urine Negative (Negative); Leukocyte Esterase Urine 3+ (Negative); Nitrite Urine Negative (Negative); Protein Urine 3+ (Negative); Urobilinogen Urine Negative (Negative); WBC Urine Automated >30 /hpf (0-5)
[2023-04-07] MEDS ORDERED: DAPTOmycin 250 MG in SYRINGE 0 ML IV SCH (06:00)
[2023-04-07] MEDS: DAPTOmycin 250 MG in SYRINGE 0 ML IV SCH (06:15)
[2023-04-07] MEDS: CEFEPIME 1,000 MG in SYRINGE 0 ML IV SCH (06:15)
[2023-04-07] MEDS: HEPARIN SOD 5,000 UNIT/0.5 ML VIAL SQ SCH ×3 (06:15→20:14)
[2023-04-07 06:58] LABS: Basophils # (auto) 0.03 K/uL (0-0.2); Basophils % (auto) 0.4 %; Eosinophils # (auto) 0.26 K/uL (0-0.50); Eosinophils % (auto) 3.4 %; Hemoglobin 10.6 g/dl (12.0-16.0); Immature Granulocytes # (auto) 0.06 K/uL (0.01-0.20); Immature Granulocytes % (auto) 0.8 %; Lymphocytes # (auto) 2.02 K/uL (1.2-3.4); Lymphocytes % (auto) 26.2 %; Mean Corpuscular Hemoglobin 31.1 pg (25.0-34.0); Mean Corpuscular Hgb Conc 31.2 g/dL (32.0-36.0); Mean Corpuscular Volume 99.7 fL (80.0-100.0); Mean Platelet Volume 10.4 fL (9.4-12.4); Monocytes # (auto) 0.77 K/uL (0.11-0.59); Neutrophils # (auto) 4.58 K/uL (1.40-6.50); Neutrophils % (auto) 59.2 %; Platelet Count 199 K/uL (130-400); RDW Coefficient of Variation 16.2 % (11.5-14.5); RDW Standard Deviation 59.8 fL (36.4-46.3); Red Blood Count 3.41 M/uL (4.20-5.40); White Blood Count 7.72 K/ul (4.8-10.8)
--- NOTE | 2023-04-07 07:10 | XRay Report ---
SINGLE VIEW CHEST CLINICAL HISTORY: Renal failure FINDINGS: An AP, portable, upright chest radiograph is compared to study dated 11/02/2022. The examina tion is degraded by portable technique and apical lordotic positioning. The cardiomediastinal silhoue tte is unremarkable. There is mild bibasilar atelectasis. The lungs and pleural spaces are otherwise clear. No pneumothorax is seen. The skeletal structures are osteopenic. The bony thorax is grossly in tact. Cholecystectomy clips are noted in the right upper quadrant. IMPRESSION: No active disease in the chest. ACT 112: Negative or not required by law. Electronically signed by: Caesar Yoon M.D. 04/07/2023 7:08 AM
[2023-04-07 07:29] LABS: Calcium 8.7 mg/dl (8.6-10.3); Potassium 3.8 mmol/L (3.5-5.1)
[2023-04-07 07:35] LABS: BUN Creatinine Ratio 11.3 (10-20); Creatinine Clr Calc Pharmacy 15.4 ml/min; Est GFR (African American) 16.3 ml/min; Est GFR (Non-African American) 14.1 ml/min
[2023-04-07] MEDS ORDERED: NON-FORMULARY MEDICATION (Riboflavin (Vitamin B2) 400 mg Tablet) PO SCH (09:00)
[2023-04-07] MEDS: oxyCODONE HCL IR 5 MG TAB (IMMEDIATE RELEASE) PO PRN ×2 (09:09→18:22)
[2023-04-07] MEDS: OXcarbazepine 150 MG TABLET PO SCH ×2 (09:09→20:14)
[2023-04-07] MEDS: PANTOprazole 40 MG TAB PO SCH ×2 (09:09→20:14)
[2023-04-07] MEDS: OXYBUTYNIN CHLORIDE XL 5 MG TABCR PO SCH (09:09)
[2023-04-07] MEDS: FERROUS GLUCONATE 324 MG TAB PO SCH (09:10)
[2023-04-07] MEDS: FOLIC ACID 1 MG TAB PO SCH (09:10)
[2023-04-07] MEDS: METOPROLOL SUCC 25MG EXT REL TAB PO SCH (09:10)
[2023-04-07] MEDS: LACTATED RINGER'S 1,000 ML IV SCH ×2 (10:21→20:15)
[2023-04-07] MEDS: PROMETHAZINE HCL 12.5 MG in SODIUM CHLORIDE 0.9% 50 ML IV PRN (12:04)
[2023-04-07] MEDS: ACETAMINOPHEN 325 MG TAB PO PRN (15:51)
--- NOTE | 2023-04-07 16:38 | Urology Consultation ---
Date of Consultation April 07, 2023 Assessment & Plan (1) Acute on chronic renal insufficiency: (2) Complicated UTI (urinary tract infection): (3) Hydronephrosis: Plan 67yo/F admitted with PERRI, left sided abdominal pain, suspected UTI. CT abdomen pelvis demonstrated theright kidney appears within normal limits. The left kidney is atrophic with chronic distention of the renal pelvis and ureter demonstrate mild surrounding inflammation, similar to previous. Probable mild chronic cystitis as well. Afebrile, BP systolic in the 90s. Labs show no leukocytosis and creatinine downtrending 3.66-3.47-3.20. Urine culture pending. On IV Cefepime and Daptomycin. Voiding spontaneously, has external catheter in place. Continue to monitor. No plan for urological intervention at this time. CT abdomen pelvis shows chronic distention of the renal pelvis and ureter which is similar to prior imaging. Patient has poorly tolerated stents and Purvis catheter in the past. We did discuss this as a possible option, however she has declined. For now, can continue conservative management with supportive care and antibiotic therapy. If the patient fails to progress or acutely worsens, will revisit ureteral stent placement. NPO at midnight and will reassess in the morning. Continue to trend labs. Follow cultures and tailor as culture data becomes available. Urology will follow. Case and plan discussed with Dr. Adam. History of Present Illness Attending Physician: Danny Turner MD History of Present Illness 67 year old female who presented to the emergency department referred by PCP and nephrology for worsening renal function and left-sided abdominal pain. Patient is well known to the urology service. Complicated urological hx includin g obstruction from stones, tolerated stents very poorly, UTI/Pyelo, and PERRI. On arrival to the ED, she was afebrile and hemodynamically stable. Labs show no leukocytosis and creatinine 3.6. Urinalysis with 2+ blood, 3+ LE, negative nitrate, negative bacteria. CT abdomen pelvis -Theright kidney appears within normal limits. The left kidney is atrophic with chronic distention of the renal pelvis and ureter demonstrate mild surrounding inflammation, similar to previous. Probable mild chronic cystitis as well. Patient examined at bedside in the ED. Awake, resting in bed on arrival. No acute distress. Still with left-sided pain. Denies fevers or chills. Some nausea, no vomiting. Voiding spontaneously, has external catheter in place. Urine is clear yellow. On clear liquid diet. Allergies Allergy/AdvReac Type Severity Reaction Status Date / Time fentanyl Allergy Severe itching/felt Verified 02/09/23 15:06 like throat closing salicylates Allergy Severe SHORTNESS Verified 02/09/23 15:06 OF BREATH Iodinated Contrast Media Allergy Intermediate EYES Verified 02/09/23 15:06 SWELLING/Hives amoxicillin [From Augmentin] Allergy Mild Rash Verified 02/09/23 15:06 aspirin Allergy Mild FACIAL Verified 02/09/23 15:06 SWELLING clavulanic acid Allergy Mild Rash Verified 02/09/23 15:06 [From Augmentin] hydromorphone Allergy Mild RASH/ITCHIN Verified 02/09/23 15:06 G meperidine AdvReac Intermediate ITCH Verified 02/09/23 15:06 morphine AdvReac Intermediate ITCH Verified 02/09/23 15:06 tramadol AdvReac Mild itch Verified 02/09/23 15:06 Home Medications Medication Instructions Recorded Confirmed Type atorvastatin 40 mg tablet (Lipitor) 40 mg PO QPM 07/12/18 04/06/23 History pantoprazole 40 mg tablet,delayed 40 mg PO BID 07/12/18 04/06/23 History release (Protonix) riboflavin (vitamin B2) 400 mg 400 mg PO QAM 07/12/18 04/06/23 History tablet cholecalciferol (vitamin D3) 50 2,000 unit PO QAM 05/16/19 04/06/23 History mcg (2,000 unit) capsule (Vitamin D3) albuterol sulfate 90 mcg/actuation 2 puff inhalation Q4H PRN 07/21/19 04/06/23 History aerosol inhaler Shortness Of Breath metoprolol succinate 50 mg 50 mg PO HS 12/11/20 04/06/23 History tablet,extended release 24 hr glipizide 2.5 mg tablet, extended 2.5 mg PO QAM 04/29/21 04/06/23 History release 24 hr (Glucotrol XL) oxcarbazepine 300 mg tablet 300 mg PO BID 12/22/21 04/06/23 History loperamide 2 mg capsule 2 mg PO TID PRN diarrhea #30 caps 01/18/22 04/06/23 Rx hydroxyzine HCl 10 mg tablet 10 mg PO HS 11/02/22 04/06/23 History magnesium oxide 400 mg (241.3 mg 400 mg PO QAM 11/02/22 04/06/23 History magnesium) tablet metoprolol succinate 50 mg 25 mg PO QAM 11/02/22 04/06/23 History tablet,extended release 24 hr acetaminophen 325 mg tablet 650 mg PO Q8H PRN fever or pain 11/09/22 04/06/23 Rx #60 tabs cyanocobalamin (vitamin B-12) 100 100 mcg PO QAM #30 tabs 11/09/22 04/06/23 Rx mcg tablet (Vitamin B-12) ferrous gluconate 324 mg (38 mg 324 mg PO QAM #30 tabs 11/09/22 04/06/23 Rx iron) tablet folic acid 1 mg tablet 1 mg PO QAM #30 tabs 11/09/22 04/06/23 Rx ondansetron 4 mg disintegrating 4 mg PO Q8H PRN nausea and 11/09/22 04/06/23 Rx tablet vomiting #30 tabs oxybutynin chloride 5 mg 5 mg PO QAM 02/09/23 04/06/23 History tablet,extended release 24 hr ciprofloxacin HCl 500 mg tablet 500 mg PO BID 04/06/23 04/06/23 History metronidazole 500 mg tablet 500 mg PO TID 04/06/23 04/06/23 History Patient History Medical History Anxiety Asthma Bipolar disorder Chronic back pain Chronic headaches Chronic obstructive pulmonary disease 2L NC HS CKD (chronic kidney disease), stage III Stage 3 Follows with [facility] nephrology ([place]) Deep vein thrombosis LLE (remote hx), was treated with blood thinners Depression Diabetes mellitus, type 2 Diarrhea Flank pain with history of urolithiasis GERD (gastroesophageal reflux disease) History of colon cancer 2012 > s/p surgery History of COVID-19 x2, most recent 10/2022- symptoms resolved History of TIA (transient ischemic attack) Remote hx, "when I was younger" HTN (hypertension) Hyperlipidemia Kidney stone Mood disorder Morbid obesity with BMI of 40.0-44.9, adult Myocardial Infarction 2016 > cardiac cath, normal coronary anatomy without coronary obstruction Nausea and vomiting Poor historian Recurrent falls Recurrent UTI Renal cyst Sinus tachycardia No recent issues Sleep apnea No device since device recalled Takotsubo cardiomyopathy 2015 with return to normal LV function Surgical History H/O hand surgery Right History of anesthesia reaction Patient had cysto/stent (10/11/21) for kidney stone at [facility] with MAC. "Patient awake and comfortable"/no issues noted per post-op anesthesia progress note. Per 10/16/21 critical care note, patient developed acute metabolic encephalopathy- multifactorial and subsequently intubated 10/17/21 d/t "altered MS" > extubated 10/19/21 History of appendectomy History of bilateral cataract extraction History of blepharoplasty History of cardiac cath 2017 > no stents History of colectomy History of colonoscopy History of cystoscopy s/p L ureteral stent 10/2021 followed by lithotripsy, stone extraction and stent exchange 11/2021 History of esophageal dilatation History of esophagogastroduodenoscopy (EGD) History of kidney surgery at age 9 yrs "something was wrong and had to fix it" History of lithotripsy History of tooth extraction History of total abdominal hysterectomy and bilateral salpingo-oophorectomy Hx of cholecystectomy Family History Other Breast cancer Colorectal cancer No family history of adverse response to anesthesia Social History Smoking Status: Never smoker Second Hand Exposure: Yes (IN THE PAST); Do You Dip or Chew Tobacco: No; Hx Alcohol Use: No Hx Substance Use: No Preferred Language: Telugu Communication Ability: Effective Visual Impairment: No Limitations Hearing Ability: Normal Lead Technical Architect Required: No Beliefs That Will Affect Care: None marital status: Current Living Situation: Alone Current Living Situation Comment: LIVES IN APARTMENTS/ LIVES UPSTAIRS IN ANOTHER APARTMENT Feels Safe at Home: Yes Assistive Devices: Glasses, Walker and Wheelchair Review of Systems Review of Systems: All systems reviewed & are unremarkable except as noted in HPI & below Physical Exam Constitutional: + ill appearing; no acute distress and + uncomfortable Neck: normal visual inspection Respiratory: no respiratory distress and no labored breathing Gastrointestinal (Abdomen): Left sided abd tenderness Musculoskeletal: Head/Neck/Chest: normocephalic Skin: Warm and dry Neurologic: awake Psychiatric: Orientation: alert, oriented x 3 and cooperative Genitourinary: Urine is clear yellow Results & Data Vital Signs (Past 12 Hours) Vital Signs Pulse Resp BP Pulse Ox 04/07/23 11:00 77 14 99 04/07/23 11:00 99/58 L 04/07/23 10:00 73 14 96 04/07/23 10:00 97/56 L 04/07/23 09:00 67 12 99 04/07/23 09:00 99/59 L 04/07/23 08:05 93 H 14 100 04/07/23 08:05 114/65 04/07/23 08:02 88 19 99 04/07/23 08:02 86 16 93/63 L 99 04/07/23 07:00 69 14 94/53 L 97 04/07/23 07:03 64 04/07/23 06:30 75 17 99 04/07/23 06:00 64 12 92/57 L 96 04/07/23 05:30 71 12 102/65 96 04/07/23 05:00 21 134/71 97 04/07/23 04:30 126 H 14 100 04/07/23 04:01 64 16 122/65 99 04/07/23 03:30 74 12 110/68 96 04/07/23 03:00 73 15 113/74 98 04/07/23 02:35 63 12 98 PG Care Time/CCT Total # of Minutes Spent Total Time Spent with Patient: Total time spent is greater than 50% in coordination of care (as documented) at patient's floor/unit and/or counseling patient: Coding Level of Care Code 00379 INT INP/OBS CARE 2/55MIN Diagnoses Acute on chronic renal insufficiency N28.9; N18.9 Complicated UTI (urinary tract infection) N39.0 Hydronephrosis N13.30
--- NOTE | 2023-04-07 18:18 | Hospitalist Progress Note ---
Date of Service April 07, 2023 Assessment & Plan (1) Complicated UTI (urinary tract infection): Plan: Complicated UTI Left hydroureteronephrosis H/O intolerance to stent placement in the past H/O VRE --CT ABD:The right kidney appears within normal limits. The left kidney is atrophic with chronic distention of the renal pelvis and ureter demonstrate mild surrounding inflammation, similar to previous. Probable mild chronic cystitis as well. Most of the colon has been resected. There is a small bowel to distal sigmoid colon anastomosis. No acute inflammatory changes are seen involving the bowel. -- Urine culture pending --On cefepime, daptomycin empirically Urology consulted DIRECTOR OF ROTC after midnight for possible intervention in a.m. if conservative management fails PERRI on CKD stage IV Non-anion gap metabolic acidosis Creatinine 3.2 today Continue IV fluids Avoid nephrotoxic agents as able Monitor renal function Consider nephrology evaluation if no improvement Chronic diastolic heart failure Chronic respiratory failure/OHS/COPD/bronchiectasis as per records No signs of acute exacerbation Continue home medications HTN BP low on metoprolol Continue IV fluids Monitor BP Hyperlipidemia Hold Lipitor while on daptomycin DM II Hold p.o. meds Continue insulin while hospitalized Monitor BGs Chronic anemia Hb at baseline H/O Colon cancer S/P surgery Anxiety/mood disorder Continue home medication DVT Px: Heparin SQ Code Status DNR/DNI Admission and Anticipated Discharge Date Admission Date: April 07, 2023 Subjective Patient is seen and examined at bedside States having left flank/groin pain Also reports nausea but no vomiting Denies any chest pain, dyspnea, dizziness, abdominal pain No other complaints Review of Systems Review of Systems: All systems reviewed & are unremarkable except as noted in Subjective Physical Exam Physical Exam: Physical Exam: Vitals signs as noted above General Appearance:Obese, no apparent distress Head: normocephalic, Atraumatic Eyes: normal inspection, EOMI Neck: supple, Trachea midline Respiratory/Chest: Normal breath sounds, CTA, No accessory muscle use Cardiovascular: S1, S2, No murmur Abdomen/GI:Soft, Mild L flank tender, Bowel sounds present Extremities/Musculoskeletal:normal inspection, + edema Neurologic/Psych:AAOX3, grossly no focal neurological deficits Skin: normal color, warm Results & Data Results & Data Vital Signs (Past 12 Hours) Vital Signs Pulse Resp BP Pulse Ox 04/07/23 17:00 67 12 97 04/07/23 16:00 74 13 99 06/29/23 15:00 68 15 98 04/07/23 15:00 92/53 L 04/07/23 14:00 67 16 99 04/07/23 14:00 93/62 L 04/07/23 13:00 71 12 96 04/07/23 13:00 80/52 L 04/07/23 12:01 80 13 100 04/07/23 12:01 107/58 L 04/07/23 12:00 87 16 99 04/07/23 11:00 77 14 99 04/07/23 11:00 99/58 L 04/07/23 10:00 73 14 96 04/07/23 10:00 97/56 L 04/07/23 09:00 67 12 99 04/07/23 09:00 99/59 L 04/07/23 08:05 93 H 14 100 04/07/23 08:05 114/65 04/07/23 08:02 88 19 99 04/07/23 08:02 86 16 93/63 L 99 04/07/23 07:00 69 14 94/53 L 97 04/07/23 07:03 64 04/07/23 06:30 75 17 99 Laboratory Results Short CBC 04/06/23 04/07/23 Range/Units 18:25 06:28 WBC 10.04 7.72 (4.8-10.8) K/ul Hgb 12.0 10.6 L (12.0-16.0) g/dl Hct 38.9 34.0 L (37.0-47.0) % Plt Count 276 199 (130-400) K/uL BMP 04/06/23 04/06/23 04/07/23 18:25 23:55 06:28 Sodium 137 139 139 Potassium 3.9 3.9 3.8 Chloride 115 H 117 H 119 H Carbon Dioxide 12 L 11 L 10 L BUN 39 H 38 H 36 H Creatinine 3.66 H 3.47 H 3.20 H Glucose 101 H 93 91 Calcium 9.2 8.9 8.7 Liver Function 04/06/23 Range/Units 18:25 Total Bilirubin 0.3 (0.2-1.0) mg/dl AST 9 L (13-39) U/L ALT 7 (7-52) U/L Alkaline Phosphatase 122 H (34-104) U/L Albumin 4.1 (3.4-5.0) gm/dl Urine 04/07/23 Range/Units 04:36 Urine Color Yellow Urine Appearance Turbid A (Clear) Urine pH 6.0 (4.5-7.5) Ur Specific Samson 1.020 (1.000-1.030) Urine Protein 3+ H (Negative) Urine Glucose (UA) Negative (Negative)
[2023-04-07] MEDS: hydrOXYzine HCl 10 MG TAB PO SCH (20:14)
[2023-04-08] MEDS: oxyCODONE HCL IR 5 MG TAB (IMMEDIATE RELEASE) PO PRN ×4 (00:57→22:17)
[2023-04-08] MEDS: HEPARIN SOD 5,000 UNIT/0.5 ML VIAL SQ SCH ×3 (05:49→22:12)
[2023-04-08] MEDS: LACTATED RINGER'S 1,000 ML IV SCH ×2 (05:49→12:00)
[2023-04-08] MEDS: CEFEPIME 1,000 MG in SYRINGE 0 ML IV SCH (05:56)
[2023-04-08] MEDS: INSULIN ASPART PER UNIT CHARGE SC SCH ×4 (07:43→22:10)
[2023-04-08 07:49] LABS: Hemoglobin 9.8 g/dl (12.0-16.0); Mean Corpuscular Hemoglobin 30.9 pg (25.0-34.0); Mean Corpuscular Hgb Conc 30.6 g/dL (32.0-36.0); Mean Corpuscular Volume 100.9 fL (80.0-100.0); Mean Platelet Volume 11.3 fL (9.4-12.4); Platelet Count 206 K/uL (130-400); RDW Coefficient of Variation 16.2 % (11.5-14.5); RDW Standard Deviation 60.3 fL (36.4-46.3); Red Blood Count 3.17 M/uL (4.20-5.40); White Blood Count 6.32 K/ul (4.8-10.8)
[2023-04-08 08:03] LABS: BUN Creatinine Ratio 11.2 (10-20); Calcium 8.7 mg/dl (8.6-10.3); Magnesium 1.6 mg/dl (1.7-2.4); Potassium 3.4 mmol/L (3.5-5.1)
[2023-04-08] MEDS: PANTOprazole 40 MG TAB PO SCH ×2 (09:02→22:17)
[2023-04-08] MEDS: METOPROLOL SUCC 25MG EXT REL TAB PO SCH (09:02)
[2023-04-08] MEDS: OXcarbazepine 150 MG TABLET PO SCH ×2 (09:03→22:18)
[2023-04-08] MEDS: FOLIC ACID 1 MG TAB PO SCH (09:03)
[2023-04-08] MEDS: OXYBUTYNIN CHLORIDE XL 5 MG TABCR PO SCH (09:03)
[2023-04-08] MEDS: FERROUS GLUCONATE 324 MG TAB PO SCH (09:03)
[2023-04-08] MEDS ORDERED: POTASSIUM CHLORIDE CRTAB 20 MEQ TABCR PO ONE (09:15)
[2023-04-08] MEDS ORDERED: MAGNESIUM SULFATE / D5W 1 GM/100 ML BAG IV ONE (09:15)
--- NOTE | 2023-04-08 09:24 | Urology Progress Note ---
Date of Service April 08, 2023 Assessment & Plan (1) Complicated UTI (urinary tract infection): (2) Acute on chronic renal insufficiency: (3) Hydronephrosis: (4) Flank pain: Plan 67yo/F admitted with PERRI, left sided abdominal pain, suspected UTI. CT abdomen pelvis demonstrated theright kidney appears within normal limits. The left kidney is atrophic with chronic distention of the renal pelvis and ureter demonstrate mild surrounding inflammation, similar to previous. Probable mild chronic cystitis as well. Afebrile and hemodynamically stable. Labs show no leukocytosis and creatinine downtrending 3.66-3.47-3.20-2.5 today. Urine culture pending. On IV Cefepime and Daptomycin. Voiding spontaneously, has external catheter in place. Continue to monitor. No plan for urological intervention at this time. CT abdomen pelvis shows chronic distention of the renal pelvis and ureter which is similar to prior imaging. Patient has poorly tolerated stents and Purvis catheter in the past and is adamant she does not want either. For now, can continue conservative management with supportive care and antibiotic therapy. If the patient fails to progress or acutely worsens, will revisit ureteral stent placement. Continue to trend labs. Follow cultures and tailor as culture data becomes available. Plan to f/u outpatient as scheduled. Urology will follow peripherally. Please contact us with any further questions, concerns, or changes in patient status. Case and plan discussed with Dr. Adam. Admission and Anticipated Discharge Date Admission Date: April 07, 2023 Subjective Pt examined at bedside. Awake, resting in bed on arrival. Still with left-sided pain. Denies fevers or chills. Some nausea, no vomiting. Voiding spontaneously, has external catheter in place. Urine is clear yellow. Review of Systems Constitutional: as per Subjective / HPI Gastrointestinal: as per Subjective / HPI Genitourinary: as per Subjective / HPI Physical Exam Constitutional: + ill appearing; no acute distress and + uncomfortable Neck: normal visual inspection Respiratory: no respiratory distress and no labored breathing Gastrointestinal (Abdomen): Left sided abd tenderness Skin: Warm and dry Neurologic: awake Psychiatric: Orientation: alert, oriented x 3 and cooperative Genitourinary: Urine is clear yellow Results & Data Vital Signs (Past 12 Hours) Vital Signs Temp Pulse Pulse Resp BP Pulse Ox O2 Del Method 04/08/23 08:25 36.6 C 80 16 106/69 98 Room Air 04/08/23 07:15 70 04/08/23 05:58 110/65 04/08/23 04:13 36.4 C L 69 16 90/60 L 97 Room Air 04/07/23 23:03 36.5 C 81 16 102/71 100 Room Air 04/07/23 23:15 69 PG Care Time/CCT Total # of Minutes Spent Total Time Spent with Patient: Total time spent is greater than 50% in coordination of care (as documented) at patient's floor/unit and/or counseling patient: Coding Level of Care Code 54225 SUB INP/OBS CARE 235MIN Diagnoses Complicated UTI (urinary tract infection) N39.0 Acute on chronic renal insufficiency N28.9; N18.9 Hydronephrosis N13.30 Flank pain R10.9
[2023-04-08] MEDS: PROMETHAZINE HCL 12.5 MG in SODIUM CHLORIDE 0.9% 50 ML IV PRN (09:48)
--- NOTE | 2023-04-08 16:06 | Hospitalist Progress Note ---
Date of Service April 08, 2023 Assessment & Plan (1) Complicated UTI (urinary tract infection): Plan: Complicated UTI Left hydroureteronephrosis H/O intolerance to stent placement in the past H/O VRE --CT ABD:The right kidney appears within normal limits. The left kidney is atrophic with chronic distention of the renal pelvis and ureter demonstrate mild surrounding inflammation, similar to previous. Probable mild chronic cystitis as well. Most of the colon has been resected. There is a small bowel to distal sigmoid colon anastomosis. No acute inflammatory changes are seen involving the bowel. -- Urine culture pending --On cefepime, daptomycin empirically Appreciate Urology Input No plan for intervention by urology for now Advance diet as tolerated PERRI on CKD stage IV Non-anion gap metabolic acidosis Creatinine 3.2>>2.5 Continue IV fluids Avoid nephrotoxic agents as able Monitor renal function Chronic diastolic heart failure Chronic respiratory failure/OHS/COPD/bronchiectasis as per records No signs of acute exacerbation Continue home medications HTN BP low on metoprolol Monitor BP Hyperlipidemia Hold Lipitor while on daptomycin DM II Hold p.o. meds Continue insulin while hospitalized Monitor BGs Chronic anemia Hb at baseline H/O Colon cancer S/P surgery Anxiety/mood disorder Continue home medication DVT Px: Heparin SQ Code Status DNR/DNI Admission and Anticipated Discharge Date Admission Date: April 07, 2023 Subjective Patient is seen and examined at bedside Reports having persistent left flank/groin pain Also reports nausea No new complaints Denies any chest pain, dyspnea, dizziness, abdominal pain Review of Systems Review of Systems: All systems reviewed & are unremarkable except as noted in Subjective Physical Exam Physical Exam: Physical Exam: Vitals signs as noted above General Appearance:Obese, no apparent distress Head: normocephalic, Atraumatic Eyes: normal inspection, EOMI Neck: supple, Trachea midline Respiratory/Chest: Normal breath sounds, CTA, No accessory muscle use Cardiovascular: S1, S2, No murmur Abdomen/GI:Soft, Mild L flank tender, Bowel sounds present Extremities/Musculoskeletal:normal inspection, + edema Neurologic/Psych:AAOX3, grossly no focal neurological deficits Skin: normal color, warm Results & Data Results & Data Vital Signs (Past 12 Hours) Vital Signs Temp Pulse Pulse Resp BP Pulse Ox O2 Del Method 04/08/23 11:39 36.6 C 76 20 105/75 98 Room Air 04/08/23 09:27 Room Air 04/08/23 08:25 36.6 C 80 16 106/69 98 Room Air 04/08/23 07:15 70 04/08/23 05:58 110/65 04/08/23 04:13 36.4 C L 69 16 90/60 L 97 Room Air Laboratory Results Short CBC 04/08/23 Range/Units 06:04 WBC 6.32 (4.8-10.8) K/ul Hgb 9.8 L (12.0-16.0) g/dl Hct 32.0 L (37.0-47.0) % Plt Count 206 (130-400) K/uL BMP 04/08/23 06:04 Sodium 139 Potassium 3.4 L Chloride 116 H Carbon Dioxide 14 L BUN 28 H Creatinine 2.50 H D Glucose 95 Calcium 8.7
[2023-04-08] MEDS: hydrOXYzine HCl 10 MG TAB PO SCH (22:18)
[2023-04-09] MEDS: PROMETHAZINE HCL 12.5 MG in SODIUM CHLORIDE 0.9% 50 ML IV PRN (00:56)
[2023-04-09] MEDS: diphenhydrAMINE Capsule 25 MG CAP PO PRN ×2 (01:11→14:29)
[2023-04-09] MEDS: ACETAMINOPHEN 325 MG TAB PO PRN ×2 (01:11→14:29)
[2023-04-09] MEDS: LACTATED RINGER'S 1,000 ML IV SCH ×3 (02:37→23:10)
[2023-04-09] MEDS: DAPTOmycin 250 MG in SYRINGE 0 ML IV SCH (05:11)
[2023-04-09] MEDS: CEFEPIME 1,000 MG in SYRINGE 0 ML IV SCH (05:12)
[2023-04-09] MEDS: HEPARIN SOD 5,000 UNIT/0.5 ML VIAL SQ SCH ×3 (05:20→23:13)
[2023-04-09] MEDS ORDERED: LACTATED RINGER'S 1,000 ML IV ONE ×2 (05:45→23:02)
[2023-04-09 07:09] LABS: Hematocrit (blood only) 27.4 % (37.0-47.0); Hemoglobin 8.2 g/dl (12.0-16.0); Mean Corpuscular Hemoglobin 30.6 pg (25.0-34.0); Mean Corpuscular Hgb Conc 29.9 g/dL (32.0-36.0); Mean Corpuscular Volume 102.2 fL (80.0-100.0); Mean Platelet Volume 10.3 fL (9.4-12.4); Platelet Count 184 K/uL (130-400); RDW Coefficient of Variation 16.4 % (11.5-14.5); RDW Standard Deviation 61.9 fL (36.4-46.3); Red Blood Count 2.68 M/uL (4.20-5.40)
[2023-04-09 07:27] LABS: BUN Creatinine Ratio 8.8 (10-20); Calcium 8.5 mg/dl (8.6-10.3); Creatinine Clr Calc Pharmacy 19.5 ml/min; Est GFR (African American) 22.1 ml/min; Est GFR (Non-African American) 19.1 ml/min; Magnesium 1.8 mg/dl (1.7-2.4); Potassium 3.9 mmol/L (3.5-5.1)
[2023-04-09] MEDS: FERROUS GLUCONATE 324 MG TAB PO SCH (07:44)
[2023-04-09] MEDS: FOLIC ACID 1 MG TAB PO SCH (07:44)
[2023-04-09] MEDS: METOPROLOL SUCC 25MG EXT REL TAB PO SCH (07:44)
[2023-04-09] MEDS: OXcarbazepine 150 MG TABLET PO SCH ×2 (07:45→23:13)
[2023-04-09] MEDS: OXYBUTYNIN CHLORIDE XL 5 MG TABCR PO SCH (07:45)
[2023-04-09] MEDS: PANTOprazole 40 MG TAB PO SCH ×2 (07:45→23:13)
[2023-04-09] MEDS: oxyCODONE HCL IR 5 MG TAB (IMMEDIATE RELEASE) PO PRN ×3 (07:47→15:30)
[2023-04-09] MEDS: INSULIN ASPART PER UNIT CHARGE SC SCH ×4 (08:18→21:19)
[2023-04-09] MEDS: LORazepam 0.5 MG TAB PO PRN (08:52)
[2023-04-09] MEDS ORDERED: SODIUM CHLORIDE 0.9% 1000ML 500 ML IV ONE (13:36)
--- NOTE | 2023-04-09 17:11 | Hospitalist Progress Note ---
Date of Service April 09, 2023 Assessment & Plan (1) Complicated UTI (urinary tract infection): Plan: Complicated UTI Left hydroureteronephrosis H/O intolerance to stent placement in the past H/O VRE --CT ABD:The right kidney appears within normal limits. The left kidney is atrophic with chronic distention of the renal pelvis and ureter demonstrate mild surrounding inflammation, similar to previous. Probable mild chronic cystitis as well. Most of the colon has been resected. There is a small bowel to distal sigmoid colon anastomosis. No acute inflammatory changes are seen involving the bowel. -- Urine culture: Negative --On cefepime, daptomycin empirically --will complete 5 day course Appreciate Urology Input Advance diet as tolerated Discussed with urology today--advised to place Purvis, n.p.o. after midnight for possible procedure PERRI on CKD stage IV Non-anion gap metabolic acidosis Creatinine 3.2>>2.4 Continue IV fluids Avoid nephrotoxic agents as able Monitor renal function Chronic diastolic heart failure Chronic respiratory failure/OHS/COPD/bronchiectasis as per records No signs of acute exacerbation Continue home medications HTN BP low on metoprolol Continue IV fluids Monitor BP Hyperlipidemia Hold Lipitor while on daptomycin DM II Hold p.o. meds Continue insulin while hospitalized Monitor BGs Chronic anemia Hb at baseline H/O Colon cancer S/P surgery Anxiety/mood disorder Continue home medication DVT Px: Heparin SQ Code Status DNR/DNI Admission and Anticipated Discharge Date Admission Date: April 07, 2023 Subjective Patient is seen and examined at bedside No new complaints Still has left flank/groin pain Renal function stable Discussed with urology today Also updated patient's daughter over the phone as requested by patient Denies any chest pain, dyspnea, dizziness, abdominal pain Review of Systems Review of Systems: All systems reviewed & are unremarkable except as noted in Subjective Physical Exam Physical Exam: Physical Exam: Vitals signs as noted above General Appearance:Obese, no apparent distress Head: normocephalic, Atraumatic Eyes: normal inspection, EOMI Neck: supple, Trachea midline Respiratory/Chest: Normal breath sounds, CTA, No accessory muscle use Cardiovascular: S1, S2, No murmur Abdomen/GI:Soft, Mild L flank tender, Bowel sounds present Extremities/Musculoskeletal:normal inspection, + edema Neurologic/Psych:AAOX3, grossly no focal neurological deficits Skin: normal color, warm Results & Data Results & Data Vital Signs (Past 12 Hours) Vital Signs Temp Pulse Pulse Resp BP Pulse Ox O2 Del Method 04/09/23 15:08 36.9 C 111 H 16 100/64 95 Room Air 04/09/23 14:15 79 04/09/23 11:41 36.8 C 83 16 84/59 L 97 Room Air 04/09/23 09:00 Room Air 04/09/23 07:46 36.6 C 74 20 91/65 L 96 Room Air 04/09/23 07:00 74 04/09/23 06:51 108/72 04/09/23 05:21 77 84/57 L Laboratory Results Short CBC 04/09/23 Range/Units 06:47 WBC 5.70 (4.8-10.8) K/ul Hgb 8.2 L (12.0-16.0) g/dl Hct 27.4 L (37.0-47.0) % Plt Count 184 (130-400) K/uL BMP 04/09/23 06:47 Sodium 141 Potassium 3.9 Chloride 119 H Carbon Dioxide 17 L BUN 22 Creatinine 2.49 H Glucose 100 H Calcium 8.5 L
[2023-04-09] MEDS ORDERED: ACETAMINOPHEN 1,000 MG/100 ML VIAL IV STA (22:58)
[2023-04-09] MEDS: hydrOXYzine HCl 10 MG TAB PO SCH (23:09)
[2023-04-10 00:57] LABS: Basophils # (auto) 0.01 K/uL (0-0.2); Basophils % (auto) 0.1 %; Eosinophils # (auto) 0.37 K/uL (0-0.50); Eosinophils % (auto) 5.4 %; Hematocrit (blood only) 24.9 % (37.0-47.0); Hemoglobin 7.6 g/dl (12.0-16.0); Immature Granulocytes # (auto) 0.03 K/uL (0.01-0.20); Immature Granulocytes % (auto) 0.4 %; Lymphocytes # (auto) 1.03 K/uL (1.2-3.4); Mean Corpuscular Hemoglobin 31.1 pg (25.0-34.0); Mean Corpuscular Hgb Conc 30.5 g/dL (32.0-36.0); Mean Platelet Volume 10.3 fL (9.4-12.4); Monocytes # (auto) 0.92 K/uL (0.11-0.59); Monocytes % (auto) 13.4 %; Neutrophils % (auto) 65.7 %; Platelet Count 170 K/uL (130-400); RDW Coefficient of Variation 16.3 % (11.5-14.5); RDW Standard Deviation 61.3 fL (36.4-46.3); Red Blood Count 2.44 M/uL (4.20-5.40); White Blood Count 6.86 K/ul (4.8-10.8)
[2023-04-10 01:09] LABS: BUN Creatinine Ratio 9.4 (10-20); Calcium 8.3 mg/dl (8.6-10.3); Creatinine Clr Calc Pharmacy 20.7 ml/min; Est GFR (African American) 23.7 ml/min; Est GFR (Non-African American) 20.4 ml/min; Magnesium 1.6 mg/dl (1.7-2.4); Potassium 3.5 mmol/L (3.5-5.1)
[2023-04-10 01:20] LABS: RBC Morphology Unremarkable
[2023-04-10] MEDS ORDERED: MAGNESIUM SULFATE / D5W 1 GM/100 ML BAG IV ONE (01:42)
[2023-04-10] MEDS: LACTATED RINGER'S 1,000 ML IV SCH ×2 (02:26→07:18)
[2023-04-10] MEDS ORDERED: MIDODRINE HCL 2.5 MG TAB PO SCH (04:35)
--- NOTE | 2023-04-10 04:36 | Communication Note ---
Date of Service: April 10, 2023 SBP 70s to 90s overnight. Patient complaining of worsening abdominal pain. Denies black/bloody stools. Denies headache. Admits to some lightheadedness especially on getting up. CT abdomen pelvis: 1. There is distention of the left renal pelvis with at least mild hydronephrosis and marked urothelial seen thickening involving the left renal pe lvis and ureter. There is significant inflammation around the left kidney and left ureter which has increased from 04/06/2023. This suggests superimposed infection. Correlate with clinical findings and urinalysis. 2. Fullness of the left renal pelvis with associated urothelial thickening is unchanged. Only mild inflammation is seen on the right. 3. The bladder is decompressed around a Purvis catheter and there is infiltrate surrounding inflammation. 4. Trace perihepatic ascites and trace pleural effusions are new from previous. 5. Bilateral nephrolithiasis as above. 6. A thick-walled cyst in the upper pole of left kidney is unchanged from prior examinations. 7. Moderate hiatal hernia. 8. Subtotal colectomy. Lactic acid within normal limits. AP Symptomatic hypotension Initiate midodrine
[2023-04-10] MEDS: ACETAMINOPHEN 325 MG TAB PO PRN (05:53)
[2023-04-10] MEDS: oxyCODONE HCL IR 5 MG TAB (IMMEDIATE RELEASE) PO PRN ×2 (05:53→17:06)
[2023-04-10] MEDS: CEFEPIME 1,000 MG in SYRINGE 0 ML IV SCH (05:53)
--- NOTE | 2023-04-10 06:52 | CT Scan Report ---
CT SCAN OF THE ABDOMEN AND PELVIS WITHOUT IV CONTRAST CLINICAL HISTORY: Generalized abdominal pain. COMPARISON STUDY: Prior abdominal CT scans, most recently dated 04/06/2023. TECHNIQUE: CT scan of the abdomen and pelvis is performed from the lung bases to the proximal femora. Images are reviewed in the axial, sagittal, and coronal planes. IV contrast was not administered for this examination as per the referring clinician. Note that the examination was performed in signific antly suboptimal fashion without IV contrast. A dose lowering technique was utilized adhering to the principles of ALARA. CT DOSE: 1238.55 mGy.cm FINDINGS: Lung bases: The heart is normal in size and without pericardial effusion. There are trace pleural eff usions with dependent atelectasis. No airspace consolidation is seen typical for pneumonia. There are scattered calcified granulomas. There is a moderate hiatal hernia. Liver: The unenhanced liver is normal in size, contour, and attenuation. There is no intrahepatic george iary ductal dilatation. Gallbladder: Surgically absent noting clips in the gallbladder fossa. Spleen: Normal in size and attenuation. Pancreas: The unenhanced pancreas is moderately atrophic and grossly unremarkable. Adrenal glands: Unremarkable. Kidneys: There is asymmetric cortical atrophy of the left kidney as compared the right with numerous foci of cortical scarring. There there are numerous small nonobstructing left renal calculi which lynne sure up to 5 mm. There are also several nonobstructing right renal calculi which also measure up to 5 mm. No ureteral stone is seen. There is distention of the left renal pelvis with at least mild left hydronephrosis. There is significant urothelial thickening within the left renal pelvis and the left ureter with surrounding inflammation. Mild urothelial thickening is seen in the right renal pelvis. N o hydronephrosis is seen on the right. A 6.3 cm thick-walled cyst is again seen in the upper pole of the left kidney. This has been present dating back to 2010. Abdominal vasculature: The abdominal aorta is normal in course and caliber noting scattered foci of a therosclerotic calcification. Bowel: There is postoperative change of subtotal colectomy with ileosigmoid anastomosis. No bowel obs truction is seen. The appendix is surgically absent. Peritoneum: There is trace perihepatic ascites. No intraperitoneal free air is seen. There is laxity of the ventral abdominal/pelvic wall with diastases of the rectus musculature and protrusion of abdom inal contents. A fat-containing supraumbilical hernia is noted. Lymphadenopathy: None. Pelvic viscera: The bladder is decompressed chronic Purvis catheter and there is pericystic inflammati on. The uterus is surgically absent. No adnexal lesion is identified. Skeletal structures: The skeletal structures are osteopenic. There is mild to moderate lumbosacral sp ondylosis. No lytic or blastic lesions are seen. Soft tissues: Foci of induration and subcutaneous gas within the right lower quadrant pannus are like ly related to subcutaneous injections. IMPRESSION: 1. There is distention of the left renal pelvis with at least mild hydronephrosis and marked urotheli al seen thickening involving the left renal pelvis and ureter. There is significant inflammation arou nd the left kidney and left ureter which has increased from 04/06/2023. This suggests superimposed inf ection. Correlate with clinical findings and urinalysis. 2. Fullness of the left renal pelvis with associated urothelial thickening is unchanged. Only mild in flammation is seen on the right. 3. The bladder is decompressed around a Purvis catheter and there is infiltrate surrounding inflammati on. 4. Trace perihepatic ascites and trace pleural effusions are new from previous. 5. Bilateral nephrolithiasis as above. 6. A thick-walled cyst in the upper pole of left kidney is unchanged from prior examinations. 7. Moderate hiatal hernia. 8. Subtotal colectomy. 9. Additional findings as above. ACT 112: Negative or not required by law. Electronically signed by: Caesar Yoon M.D. 04/10/2023 6:49 AM
[2023-04-10] MEDS: POTASSIUM CHLORIDE / WTR 10 MEQ/100 ML PLCT IV SCH ×2 (07:18→09:18)
[2023-04-10] MEDS ORDERED: STAT IV STA (07:41)
[2023-04-10] MEDS ORDERED: PROMETHAZINE HCL 6.25 MG in SODIUM CHLORIDE 0.9% 50 ML IV PRN (08:03)
[2023-04-10] MEDS: OXYBUTYNIN CHLORIDE XL 5 MG TABCR PO SCH (08:24)
[2023-04-10] MEDS: PANTOprazole 40 MG TAB PO SCH ×2 (08:24→21:10)
[2023-04-10] MEDS: OXcarbazepine 150 MG TABLET PO SCH ×2 (08:24→21:11)
[2023-04-10] MEDS: FOLIC ACID 1 MG TAB PO SCH (08:25)
[2023-04-10] MEDS: FERROUS GLUCONATE 324 MG TAB PO SCH (08:25)
[2023-04-10] MEDS: METOPROLOL SUCC 25MG EXT REL TAB PO SCH (08:25)
[2023-04-10] MEDS: INSULIN ASPART PER UNIT CHARGE SC SCH ×4 (08:26→21:08)
[2023-04-10] MEDS: SODIUM BICARBONATE 8.4% 75 MEQ, POTASSIUM CHLORIDE 20 MEQ in SODIUM CHLORIDE 0.45 % 1,0... IV SCH ×2 (08:38→19:41)
[2023-04-10 08:48] LABS: Estimated Average Glucose 103 mg/dl; Hemoglobin A1C 5.2 % (4.5-5.6)
[2023-04-10] MEDS ORDERED: HYDROmorphone INJ 1 MG/ML SYRINGE IV PRN (08:51)
[2023-04-10] MEDS ORDERED: ePHEDrine sulfate 50 MG/ML AMP IV PRN (08:51)
[2023-04-10] MEDS ORDERED: ATROPINE SULFATE 0.1 MG/ML 10ML SYR IV PRN (08:51)
[2023-04-10] MEDS ORDERED: ONDANSETRON INJ 2 MG/ML 2 ML VIAL IV PRN (08:51)
--- NOTE | 2023-04-10 08:51 | Anesthesiology Consultation ---
Date of Service April 10, 2023 Assessment & Plan (1) Encounter for pre-operative examination: Chart Review Chart Review: Acceptable Risk for Surgery and Patient NOT seen in Pre Admission Testing Consults Requested none History Surgery Operation Date: 04/10/23 11:00 Proposed Procedures p Cystoscopy - Rajan Adam DO Height/Weight Height: 4 ft 11 in Weight: 83.2 kg Allergies Allergy/AdvReac Type Severity Reaction Status Date / Time fentanyl Allergy Severe itching/felt Verified 02/09/23 15:06 like throat closing salicylates Allergy Severe SHORTNESS Verified 02/09/23 15:06 OF BREATH Iodinated Contrast Media Allergy Intermediate EYES Verified 02/09/23 15:06 SWELLING/Hives amoxicillin [From Augmentin] Allergy Mild Rash Verified 02/09/23 15:06 aspirin Allergy Mild FACIAL Verified 02/09/23 15:06 SWELLING clavulanic acid Allergy Mild Rash Verified 02/09/23 15:06 [From Augmentin] hydromorphone Allergy Mild RASH/ITCHIN Verified 02/09/23 15:06 G meperidine AdvReac Intermediate ITCH Verified 02/09/23 15:06 morphine AdvReac Intermediate ITCH Verified 02/09/23 15:06 tramadol AdvReac Mild itch Verified 02/09/23 15:06 Medications Home Medications Medication Instructions Recorded Confirmed Last Taken atorvastatin 40 mg tablet (Lipitor) 40 mg PO QPM 07/12/18 04/06/23 11/16/21 pantoprazole 40 mg tablet,delayed 40 mg PO BID 07/12/18 04/06/23 11/17/21 08:00 release (Protonix) riboflavin (vitamin B2) 400 mg 400 mg PO QAM 07/12/18 04/06/23 11/16/21 tablet cholecalciferol (vitamin D3) 50 2,000 unit PO QAM 05/16/19 04/06/23 11/17/21 mcg (2,000 unit) capsule (Vitamin D3) albuterol sulfate 90 mcg/actuation 2 puff inhalation Q4H PRN 07/21/19 04/06/23 09/13/21 aerosol inhaler Shortness Of Breath metoprolol succinate 50 mg 50 mg PO HS 12/11/20 04/06/23 11/16/22 tablet,extended release 24 hr glipizide 2.5 mg tablet, extended 2.5 mg PO QAM 04/29/21 04/06/23 11/16/21 release 24 hr (Glucotrol XL) oxcarbazepine 300 mg tablet 300 mg PO BID 12/22/21 04/06/23 Unknown loperamide 2 mg capsule 2 mg PO TID PRN diarrhea #30 caps 01/18/22 04/06/23 Unknown hydroxyzine HCl 10 mg tablet 10 mg PO HS 11/02/22 04/06/23 Unknown magnesium oxide 400 mg (241.3 mg 400 mg PO QAM 11/02/22 04/06/23 Unknown magnesium) tablet metoprolol succinate 50 mg 25 mg PO QAM 11/02/22 04/06/23 11/16/22 tablet,extended release 24 hr acetaminophen 325 mg tablet 650 mg PO Q8H PRN fever or pain 11/09/22 04/06/23 Unknown #60 tabs cyanocobalamin (vitamin B-12) 100 100 mcg PO QAM #30 tabs 11/09/22 04/06/23 Unknown mcg tablet (Vitamin B-12) ferrous gluconate 324 mg (38 mg 324 mg PO QAM #30 tabs 11/09/22 04/06/23 Unknown iron) tablet folic acid 1 mg tablet 1 mg PO QAM #30 tabs 11/09/22 04/06/23 Unknown ondansetron 4 mg disintegrating 4 mg PO Q8H PRN nausea and 11/09/22 04/06/23 Unknown tablet vomiting #30 tabs oxybutynin chloride 5 mg 5 mg PO QAM 02/09/23 04/06/23 Unknown tablet,extended release 24 hr ciprofloxacin HCl 500 mg tablet 500 mg PO BID 04/06/23 04/06/23 Unknown metronidazole 500 mg tablet 500 mg PO TID 04/06/23 04/06/23 Unknown Active Medications Generic Name Dose Route Start Last Admin Trade Name Freq PRN Reason Stop Dose Admin Acetaminophen 650 mg 04/07/23 00:54 04/10/23 05:53 Acetaminophen 325 Mg Tab PO 05/07/23 00:53 650 mg Q6H PRN Administration Fever/Pain Diphenhydramine HCl 25 mg 04/07/23 04:32 04/09/23 14:29 Diphenhydramine Capsule 25 Mg Cap PO 05/07/23 04:31 25 mg QID PRN Administration itch Ferrous Gluconate 324 mg 04/07/23 09:00 04/10/23 08:25 Ferrous Gluconate 324 Mg Tab PO 05/07/23 08:59 324 mg QAM MARLA Administration Folic Acid 1 mg 04/07/23 09:00 04/10/23 08:25 Folic Acid 1 Mg Tab PO 05/07/23 08:59 1 mg QAM MARLA Administration Hydroxyzine HCl 10 mg 04/07/23 21:00 04/09/23 23:09 Hydroxyzine Hcl 10 Mg Tab PO 05/07/23 20:59 Not Given HS MARLA Cefepime HCl 1,000 mg/ Syringe 10 mls @ 5 mls/min 04/07/23 06:00 04/10/23 05:53 IV 04/14/23 05:59 5 mls/min Q24H MARLA Administration Protocol Daptomycin 250 mg/ Syringe 5 mls @ 2.5 mls/min 04/07/23 06:00 04/09/23 05:11 IV 04/14/23 05:59 2.5 mls/min Q2D MARLA Administration Protocol Potassium Chloride 10 meq in 100 mls @ 100 mls/hr 04/10/23 07:15 04/10/23 08:18 K Pelon / Wtr IV 04/10/23 09:14 Infused Q1H MARLA Infusion Sodium Bicarbonate 75 meq/ 1,085 mls @ 125 mls/hr 04/10/23 09:30 04/10/23 08:38 Potassium Chloride 20 meq/ IV 05/10/23 07:44 125 mls/hr Sodium Chloride .Q8H41M MARLA Administration Insulin Aspart 0 units 04/07/23 01:32 04/10/23 08:26 Insulin Aspart Per Unit Charge SC 05/07/23 01:31 Not Given ACHS MARLA Lorazepam 0.5 mg 04/09/23 08:29 04/09/23 08:52 Lorazepam 0.5 Mg Tab PO 04/11/23 08:28 0.5 mg BID PRN Administration Anxiety Metoprolol Succinate 25 mg 04/07/23 09:00 04/10/23 08:25 Metoprolol Succ 25mg Ext Rel Tab PO 05/07/23 08:59 25 mg QAM MARLA Administration Oxcarbazepine 300 mg 04/07/23 09:00 04/10/23 08:24 Oxcarbazepine 150 Mg Tablet PO 05/07/23 08:59 300 mg BID MARLA Administration Oxybutynin Chloride 5 mg 04/07/23 09:00 04/10/23 08:24 Oxybutynin Chloride Xl 5 Mg Tabcr PO 05/07/23 08:59 5 mg QAM MARLA Administration Oxycodone HCl 5 mg 04/07/23 00:48 04/10/23 05:53 Oxycodone Hcl Ir 5 Mg Tab (Immediate Release) PO 04/21/23 00:47 5 mg Q4H PRN Administration Pain Pantoprazole Sodium 40 mg 04/07/23 09:00 04/10/23 08:24 Pantoprazole 40 Mg Tab PO 05/07/23 08:59 40 mg BID MARLA Administration NPO Date Last Intake of Fluids: 04/10/23 Time Last Intake of Fluids: 08:42 Last Intake of Fluids Comment: sips w/meds Date Last Intake of Solids: 04/09/23 Time Last Intake of Solids: 17:00 Last Intake of Solids Comment: bites only Past Medical History Medical History Anxiety Asthma Bipolar disorder Chronic back pain Chronic headaches Chronic obstructive pulmonary disease 2L NC HS CKD (chronic kidney disease), stage III Stage 3 Follows with [facility] nephrology ([place]) Deep vein thrombosis LLE (remote hx), was treated with blood thinners Depression Diabetes mellitus, type 2 Diarrhea Flank pain with history of urolithiasis GERD (gastroesophageal reflux disease) History of colon cancer 2012 > s/p surgery History of COVID-19 x2, most recent 10/2022- symptoms resolved History of TIA (transient ischemic attack) Remote hx, "when I was younger" HTN (hypertension) Hyperlipidemia Kidney stone Mood disorder Morbid obesity with BMI of 40.0-44.9, adult Myocardial Infarction 2016 > cardiac cath, normal coronary anatomy without coronary obstruction Nausea and vomiting Poor historian Recurrent falls Recurrent UTI Renal cyst Sinus tachycardia No recent issues Sleep apnea No device since device recalled Takotsubo cardiomyopathy 2015 with return to normal LV function Past Family History Family History Other Breast cancer Colorectal cancer No family history of adverse response to anesthesia Past Surgical History Surgical History H/O hand surgery Right History of anesthesia reaction Patient had cysto/stent (10/11/21) for kidney stone at [facility] with MAC. "Patient awake and comfortable"/no issues noted per post-op anesthesia progress note. Per 10/16/21 critical care note, patient developed acute metabolic encephalopathy- multifactorial and subsequently intubated 10/17/21 d/t "altered MS" > extubated 10/19/21 History of appendectomy History of bilateral cataract extraction History of blepharoplasty History of cardiac cath 2017 > no stents History of colectomy History of colonoscopy History of cystoscopy s/p L ureteral stent 10/2021 followed by lithotripsy, stone extraction and stent exchange 11/2021 History of esophageal dilatation History of esophagogastroduodenoscopy (EGD) History of kidney surgery at age 9 yrs "something was wrong and had to fix it" History of lithotripsy History of tooth extraction History of total abdominal hysterectomy and bilateral salpingo-oophorectomy Hx of cholecystectomy Social History Smoking Status: Never smoker tobacco type: cigarettes Do You Dip or Chew Tobacco: No Hx Alcohol Use: No Hx Substance Use: No substance use type: does not use Last Used Substance Other:: hasnt used for at least 1 year Physical Exam Vital Signs Last Vital Signs Temp 98.1 F 04/10/23 07:24 Pulse 76 04/10/23 07:30 Resp 16 04/10/23 07:24 BP 100/64 04/10/23 07:42 Pulse Ox 94 04/10/23 07:24 O2 Del Method Room Air 04/10/23 07:24 Testing Laboratory Results 04/10/23 00:34 04/10/23 00:34 Hemoglobin A1c 5.2 % (4.5-5.6) 04/10/23 06:16 Urine Color Yellow 04/07/23 04:36 Urine Appearance Turbid (Clear) A 04/07/23 04:36 Urine pH 6.0 (4.5-7.5) 04/07/23 04:36 Ur Specific [place] 1.020 (1.000-1.030) 04/07/23 04:36 Urine Protein 3+ (Negative) H 04/07/23 04:36 Urine Glucose (UA) Negative (Negative) 04/07/23 04:36 Urine Ketones Negative (Negative) 04/07/23 04:36 Urine Nitrite Negative (Negative) 04/07/23 04:36 Ur Leukocyte Esterase 3+ (Negative) H 04/07/23 04:36 Urine WBC (Auto) >30 /hpf (0-5) H 04/07/23 04:36 Urine RBC (Auto) 10-30 /hpf (0-4) H 04/07/23 04:36 U Hyaline Cast (Auto) 1-5 /lpf (0-5) 04/07/23 04:36 U Epithel Cells (Auto) 10-20 /lpf (0-5) H 04/07/23 04:36 Urine Bacteria (Auto) Negative (Negative) 04/07/23 04:36 Blood Type O Positive 04/10/23 06:16 Antibody Screen NEGATIVE 04/10/23 06:16 04/07/23 04:36 Urine Culture - Final Urine,Clean Catch No growth - less than 1,000 colonies/mL. Electrocardiogram Date: 11/19/22 Findings: + NSR @ (tachy) poss inf infarct Chest X-Ray Date: 04/06/23 Findings: + NAD Echocardiogram Date: 09/04/20 EF: 65-70 LV Function: normal
--- NOTE | 2023-04-10 08:57 | Urology Progress Note ---
Date of Service April 10, 2023 Assessment & Plan (1) Complicated UTI (urinary tract infection): (2) Acute on chronic renal insufficiency: (3) Hydronephrosis: (4) Flank pain: Plan Well-known patient with complicated history of obstructive kidney on left with large peripelvic cysts and considerable issues related to multidrug resistant infections as well as yeast infection in the urinary system. Patient has had considerable issues with stents in the past. Has had obstructive issues with increasing bother. Patient has been admitted on broad-spectrum antibiotics. Initially had been slightly improving however is now had worsening issues with persistent hypotension and ill feelings pain discomfort and bother. After extensive conversation today as well as coordination with the hospitalist team had discussed possibly moving forward with stent placement. Did discuss possible issues related to stent including issues related pain and discomfort. Discussed drainage related issues and problems including issues related to the obstructive issue she has had in the past. Discussed options moving forward including decompression of the system. Discussed possible culture from the kidney as well. Extensively reviewed risk and benefits as well as concerns related to anesth esia. Risks and benefits discussed at length for procedure. These include bleeding, infection, injury to surrounding tissues or organs, and risks associated with anesthesia. Patient states understanding and agrees to proceed. Will sign consent and proceed. Plan for cystoscopy with left stent placement. Admission and Anticipated Discharge Date Admission Date: April 07, 2023 Subjective Patient admitted with pyelonephritis and sepsis. Long history of complicated urologic history with obstructive issues on the left side with large peripelvic cyst and chronic hydronephrosis. Patient has previously had multidrug-resistant infections and has had considerable issues tolerating stents in the past. Patient is afebrile. Has been undergoing hydration and supportive care with oral medications, IV medications, IV fluids, and oral intake. Patient had started to decompensate. Blood pressures have started to reduce with now a persistent hypotension. Has been gently attempted to be hydrated. Has been continued on broad-spectrum antibiotics. Has not developed severe vomiting or other issues. Has not experienced fever or chills. Has been tolerating oral medications but was made n.p.o. last evening. Is tolerating IV fluids. Has noticed some frequency and urgency. Has not had severe pain in the back and flank. Does have occasional burning and irritation. No severe episodes or major changes. Patient does not believe they passed a stone. Has not passed a large amount of blood or debris that may be a stone. Review of Systems Review of Systems: All systems reviewed & are unremarkable except as noted in HPI & below Physical Exam Physical Exam: General: Alert in no acute distress. Advanced age. Tremor HEENT: Normocephalic Atraumatic. Inspection normal. Cranial Nerves 2-12 Grossly intact. Normal inspection of face. Normal inspection of neck. Psychologic: Normal affect. Respiratory: Nonlabored. No use of accessory muscles. No tachypnea or dyspnea. Cardiovascular: No tachycardia Skin: Sentinel and Dry. No rashes or visible lesions. Extremities/Lymphatics: No edema Abdomen: Soft Non-distended. No rebound or guarding. Results & Data Vital Signs (Past 12 Hours) Vital Signs Temp Pulse Pulse Resp BP BP Pulse Ox 04/10/23 07:30 76 04/10/23 07:42 100/64 98/58 L 04/10/23 07:24 36.7 C 70 16 93/56 L 91/59 L 94 04/10/23 05:24 114 H 90/58 L 04/09/23 22:00 91 H 04/10/23 04:03 69 76/54 L 04/10/23 03:00 36.6 C 71 18 69/48 L 94 04/10/23 02:29 73 16 82/50 L 04/09/23 21:15 90 16 84/57 L 04/10/23 00:20 84 16 76/40 L 04/09/23 22:00 36.7 C 86 20 77/57 L 95 O2 Del Method 04/10/23 07:30 04/10/23 07:42 04/10/23 07:24 Room Air 04/10/23 05:24 04/09/23 22:00 04/10/23 04:03 04/10/23 03:00 Room Air 04/10/23 02:29 04/09/23 21:15 04/10/23 00:20 04/09/23 22:00 Room Air PG Care Time/CCT Total # of Minutes Spent Total Time Spent with Patient: Total time spent is greater than 50% in coordination of care (as documented) at patient's floor/unit and/or counseling patient: Coding Level of Care Code 64359 SUB INP/OBS CARE 3/50MIN Diagnoses Complicated UTI (urinary tract infection) N39.0 Acute on chronic renal insufficiency N28.9; N18.9 Hydronephrosis N13.30 Flank pain R10.9
[2023-04-10] MEDS ORDERED: MIDAZOLAM HCL 1 MG/ML 2ML VIAL ONE (09:19)
[2023-04-10] MEDS ORDERED: ACETAMINOPHEN 1000 MG/100 ML IV IV ONE (09:26)
[2023-04-10] MEDS ORDERED: FAMOTIDINE/PF 20 MG/2 ML VIAL IV ONE (09:26)
[2023-04-10] MEDS ORDERED: SUCCINYLCHOLINE CHLORIDE 20 MG/ML 10 ML VIAL IV ONE (10:00)
[2023-04-10] MEDS ORDERED: DEXAMETHASONE SOD INJ 4 MG/ML VIAL ONE (10:02)
[2023-04-10] MEDS ORDERED: PROPOFOL IV EMULSION 10 MG/ML 20 ML VIAL IV ONE (10:02)
[2023-04-10] MEDS ORDERED: METOCLOPRAMIDE HCL INJ 5 MG/ML 2 ML VIAL ONE (10:02)
[2023-04-10] MEDS ORDERED: ONDANSETRON INJ 2 MG/ML 2 ML VIAL ONE (10:02)
[2023-04-10] MEDS ORDERED: LIDOCAINE 2% 2 ML VIAL/AMP(20MG/ML) INFIL ONE (10:02)
[2023-04-10] MEDS ORDERED: DIATRIZOATE MEGLUMINE 30% 100ML VIAL INSTIL ONE (10:07)
--- NOTE | 2023-04-10 10:07 | Operative Report ---
PG Post Operative Report Pre & Post Diagnosis Operation Date: 04/10/23 11:00 Pre-Op Diagnosis: Complicated urinary tract infection, Acute on chronic renal insufficiency Post-Op Diagnosis: Complicated urinary tract infection, Acute on chronic renal insufficiency I identified the patient and participated in the time-out.: Yes Procedure Operation Date: 04/10/23 11:00 Actual Procedures p Cystoscopy, Left retrograde pyelogram(Left) - Rajan Adam DO Surgeon Rajan Adam, II, DO Counter Helper None Estimated Blood Loss 1 Findings Consistent with Post-Op Diagnosis Stent placed in good position. Cloudy urine from left renal pelvis. Specimens Urine for Culture - Left Kidney Drains 4.8 Fr x 24 cm 18 Fr Silicon Catheter Anesthesia Type MAC Complications none Disposition Disposition: Recovery Room Indications Patient with obstruction. Risks and benefits discussed at length. Description of Procedure Patient was consented and brought back to the operating room. Patient was placed under anesthesia in the supine position and moved to the dorsal lithotomy position. Patient was prepped and draped in the regular sterile fashion. A time out was completed. A 30degree Cystoscope was placed into the bladder and the entire bladder was examined. The UO's were identified. The UO was cannulized with a catheter and advanced to the pelvis. Urine was aspirated and sent for analysis. A retrograde pyelogram was completed. A wire was then placed. With the wire in place, a 4.8 Fr Double J stent was placed. It was confirmed with fluoroscopy. With the stent in place, the bladder was emptied. The scope was removed. An 18 Fr Silicon catheter was then placed. The patient was cleaned, aroused from anesthesia, and transferred to the pacu in stable condition having tolerated the procedure well with no complications. I was present and participated in all aspects of the procedure. The patient will be monitored in the PACU until transferred. Plan to monitor. Maintain stent and await culture. May need chronic stent if obstruction issues continue. I attest to the content of the Intraoperative Record and any orders documented therein. Any exceptions are noted below.
--- NOTE | 2023-04-10 10:19 | Fluoroscopy Report ---
INTRAOPERATIVE RADIOGRAPHS CLINICAL HISTORY: Left ureteral stent placement. Fluoro time: 49 seconds Ka,r: 10.39 mGy FINDINGS: 2 spot fluoroscopic views of the left abdomen are correlated with abdominal CT performed same day 04/10/2023. There is contrast within the dilated left renal pelvis. The images show the prox imal and distal ends of a left ureteral stent in appropriate position. IMPRESSION: Intraoperative images from a left ureteral stent placement procedure as above. Electronically signed by: Caesar Yoon M.D. 04/10/2023 10:18 AM
--- NOTE | 2023-04-10 10:49 | Anesthesiology Progress Note ---
Date of Service April 10, 2023 Anesthesia Post Procedure Vital Signs Vital Signs: Temp Pulse Pulse Pulse Resp BP BP 04/10/23 10:45 97.0 F L 75 12 106/62 04/10/23 10:35 76 13 110/68 04/10/23 10:25 86 14 116/68 04/10/23 10:17 96.8 F L 85 18 120/70 04/10/23 08:00 04/10/23 07:30 76 04/10/23 07:42 100/64 98/58 L 04/10/23 07:24 98.1 F 70 16 93/56 L 91/59 L 04/10/23 05:24 114 H 90/58 L 04/09/23 22:00 91 H 04/10/23 04:03 69 76/54 L 04/10/23 03:00 97.9 F 71 18 69/48 L 04/10/23 02:29 73 16 82/50 L 04/09/23 21:15 90 16 84/57 L 04/10/23 00:20 84 16 76/40 L 04/09/23 22:00 98.1 F 86 20 77/57 L 04/09/23 19:00 98.4 F 83 20 89/60 L 04/09/23 15:08 98.4 F 111 H 16 100/64 04/09/23 14:15 79 04/09/23 11:41 98.2 F 83 16 84/59 L Pulse Ox O2 Del Method O2 Flow Rate 04/10/23 10:45 100 Oxymask 2 04/10/23 10:35 100 Oxymask 2 04/10/23 10:25 100 Oxymask 4 04/10/23 10:17 98 Oxymask 6 04/10/23 08:00 Room Air 04/10/23 07:30 04/10/23 07:42 04/10/23 07:24 94 Room Air 04/10/23 05:24 04/09/23 22:00 04/10/23 04:03 04/10/23 03:00 94 Room Air 04/10/23 02:29 04/09/23 21:15 04/10/23 00:20 04/09/23 22:00 95 Room Air 04/09/23 19:00 99 Room Air 07/01/23 15:08 95 Room Air 04/09/23 14:15 04/09/23 11:41 97 Room Air Pain Intensity Back: Pain Intensity: 8 Left Abdomen: Pain Intensity: 9 Pelvic: Pain Intensity: 8 Transfer of Care Handoff Completed per policy Notes Mental Status: alert / awake / arousable and participated in evaluation Patient Amnestic to Procedure: Yes Nausea / Vomiting: adequately controlled Pain: adequately controlled Airway Patency, RR, SpO2: stable & adequate BP & HR: stable & adequate Hydration State: stable & adequate Anesthetic Complications: no major complications apparent and Pt Satisfied with anesthetic care
[2023-04-10] MEDS: MIDODRINE HCL 2.5 MG TAB PO SCH ×2 (12:39→17:02)
[2023-04-10 14:58] LABS: Base Excess VBG -10.7 mEq/L; HCO3 VBG 18 mmol/L; Oxygen Saturation VBG < 60.0 %; PCO2 VBG 47 mmHg (38-50); PO2 VBG 34 mmHg; pH VBG 7.18 (7.36-7.41)
[2023-04-10 15:20] LABS: BUN Creatinine Ratio 9.4 (10-20); Calcium 8.3 mg/dl (8.6-10.3); Est GFR (African American) 30.4 ml/min; Est GFR (Non-African American) 26.3 ml/min
--- NOTE | 2023-04-10 16:14 | Hospitalist Progress Note ---
Date of Service April 10, 2023 Assessment & Plan (1) Complicated UTI (urinary tract infection): Plan: Complicated UTI Left hydroureteronephrosis H/O intolerance to stent placement in the past H/O VRE --CT ABD:The right kidney appears within normal limits. The left kidney is atrophic with chronic distention of the renal pelvis and ureter demonstrate mild surrounding inflammation, similar to previous. Probable mild chronic cystitis as well. Most of the colon has been resected. There is a small bowel to distal sigmoid colon anastomosis. No acute inflammatory changes are seen involving the bowel. --Repeat CT on 04/10/2023 suggestive of left-sided hydronephrosis, findings suggestive pyelonephritis. Also noted thick-walled left upper pole kidney cyst. --S/P cystoscopy, left retrograde pyelogram on 04/10/[address] Adam -- Urine culture: Negative --Repeat urine culture --Continue IV cefepime, daptomycin Appreciate Urology Input Continue Purvis catheter for now PERRI on CKD stage IV Non-anion gap metabolic acidosis Creatinine 3.2>>2.4>1.9 Continue IV fluids with bicarbonate Avoid nephrotoxic agents as able Monitor renal function Hypokalemia Replete electrolytes as needed Chronic diastolic heart failure Chronic respiratory failure/OHS/COPD/bronchiectasis as per records No signs of acute exacerbation -ECHO: EF 65 to 70%. Mild concentric LVH. 1 diastolic dysfunction. Mild tricuspid regurgitation. Estimated systolic pulmonary pressure 51 mm of Hg Continue home medications Monitor volume HTN BP low on metoprolol IV fluids as needed Monitor BP Hyperlipidemia Hold Lipitor while on daptomycin DM II Hold p.o. meds Continue insulin while hospitalized Monitor BGs Chronic anemia Hb at baseline H/O Colon cancer S/P surgery Anxiety/mood disorder Continue home medication DVT Px: Heparin SQ Code Status DNR/DNI Admission and Anticipated Discharge Date Admission Date: April 07, 2023 Subjective Patient is seen and examined at bedside Drowsy after having stent placement this morning Reported no nausea to RN this morning Given repeat CT suggestive of infection, will continue IV antibiotics Discussed with urology today Review of Systems Review of Systems: All systems reviewed & are unremarkable except as noted in Subjective Physical Exam Physical Exam: Physical Exam: Vitals signs as noted above General Appearance:Obese, no apparent distress Head: normocephalic, Atraumatic Eyes: normal inspection, EOMI Neck: supple, Trachea midline Respiratory/Chest: Normal breath sounds, CTA, No accessory muscle use Cardiovascular: S1, S2, No murmur Abdomen/GI:Soft, Mild L flank tender, Bowel sounds present Extremities/Musculoskeletal:normal inspection, + edema Neurologic/Psych:AAOX3, grossly no focal neurological deficits Skin: normal color, warm Results & Data Results & Data Vital Signs (Past 12 Hours) Vital Signs Temp Pulse Pulse Pulse Pulse Resp BP 04/10/23 15:29 36.7 C 72 16 04/10/23 15:00 59 L 04/10/23 13:20 36.7 C 66 16 04/10/23 12:01 36.7 C 67 16 04/10/23 11:46 36.7 C 64 16 04/10/23 11:40 36.5 C 69 16 04/10/23 11:26 36.5 C 71 71 16 04/10/23 11:12 36.7 C 71 16 04/10/23 10:45 36.1 C L 75 12 04/10/23 10:35 76 13 04/10/23 10:25 86 14 04/10/23 10:55 71 15 04/10/23 10:17 36 C L 85 18 04/10/23 08:00 04/10/23 07:30 76 04/10/23 07:42 100/64 04/10/23 07:24 36.7 C 70 16 93/56 L 04/10/23 05:24 114 H BP Pulse Ox O2 Del Method O2 Flow Rate 04/10/23 15:29 97/65 L 99 Nasal Cannula 04/10/23 15:00 04/10/23 13:20 117/69 100 Room Air 04/10/23 12:01 108/73 100 Nasal Cannula 2 04/10/23 11:46 105/73 100 Room Air 04/10/23 11:40 115/75 100 Nasal Cannula 2 04/10/23 11:26 111/77 100 Nasal Cannula 2 04/10/23 11:12 109/74 97 Oxymask 2 04/10/23 10:45 106/62 100 Oxymask 2 04/10/23 10:35 110/68 100 Oxymask 2 04/10/23 10:25 116/68 100 Oxymask 4 04/10/23 10:55 113/70 100 Oxymask 2 04/10/23 10:17 120/70 98 Oxymask 6 04/10/23 08:00 Room Air 04/10/23 07:30 04/10/23 07:42 98/58 L 04/10/23 07:24 91/59 L 94 Room Air 04/10/23 05:24 90/58 L Laboratory Results Short CBC 04/10/23 Range/Units 00:34 WBC 6.86 (4.8-10.8) K/ul Hgb 7.6 L (12.0-16.0) g/dl Hct 24.9 L (37.0-47.0) % Plt Count 170 (130-400) K/uL BMP 04/10/23 04/10/23 00:34 14:41 Sodium 139 137 Potassium 3.5 5.0 D Chloride 117 H 114 H Carbon Dioxide 16 L 18 L BUN 22 18 Creatinine 2.35 H 1.91 H D Glucose 122 H 156 H Calcium 8.3 L 8.3 L
[2023-04-10] MEDS: LORazepam 0.5 MG TAB PO PRN (17:06)
[2023-04-10 20:25] LABS: Hematocrit (blood only) 28.4 % (37.0-47.0); Hemoglobin 8.4 g/dl (12.0-16.0)
[2023-04-10] MEDS: hydrOXYzine HCl 10 MG TAB PO SCH (21:13)
[2023-04-10] MEDS: PHENAZOPYRIDINE HCL 200 MG TAB PO PRN (21:18)
[2023-04-11] MEDS: SODIUM BICARBONATE 8.4% 75 MEQ, POTASSIUM CHLORIDE 20 MEQ in SODIUM CHLORIDE 0.45 % 1,0... IV SCH (04:20)
[2023-04-11] MEDS: oxyCODONE HCL IR 5 MG TAB (IMMEDIATE RELEASE) PO PRN ×3 (04:52→21:48)
[2023-04-11] MEDS: CEFEPIME 1,000 MG in SYRINGE 0 ML IV SCH (05:43)
[2023-04-11] MEDS: DAPTOmycin 250 MG in SYRINGE 0 ML IV SCH (05:44)
[2023-04-11] MEDS: PHENAZOPYRIDINE HCL 200 MG TAB PO PRN ×2 (08:08→15:59)
[2023-04-11] MEDS: METOPROLOL SUCC 25MG EXT REL TAB PO SCH (08:08)
[2023-04-11] MEDS: PANTOprazole 40 MG TAB PO SCH ×2 (08:09→21:40)
[2023-04-11] MEDS: OXYBUTYNIN CHLORIDE XL 5 MG TABCR PO SCH (08:10)
[2023-04-11] MEDS: MIDODRINE HCL 2.5 MG TAB PO SCH ×3 (08:10→17:42)
[2023-04-11] MEDS: OXcarbazepine 150 MG TABLET PO SCH ×2 (08:10→21:40)
[2023-04-11] MEDS: FERROUS GLUCONATE 324 MG TAB PO SCH (08:11)
[2023-04-11] MEDS: FOLIC ACID 1 MG TAB PO SCH (08:11)
[2023-04-11] MEDS: INSULIN ASPART PER UNIT CHARGE SC SCH ×4 (08:14→21:41)
[2023-04-11 08:49] LABS: Hematocrit (blood only) 29.7 % (37.0-47.0); Mean Corpuscular Hemoglobin 31.1 pg (25.0-34.0); Mean Corpuscular Hgb Conc 30.3 g/dL (32.0-36.0); Mean Corpuscular Volume 102.8 fL (80.0-100.0); Mean Platelet Volume 10.7 fL (9.4-12.4); Platelet Count 224 K/uL (130-400); RDW Coefficient of Variation 16.5 % (11.5-14.5); Red Blood Count 2.89 M/uL (4.20-5.40); White Blood Count 11.86 K/ul (4.8-10.8)
[2023-04-11 09:07] LABS: BUN Creatinine Ratio 9.3 (10-20); Calcium 8.5 mg/dl (8.6-10.3); Creatinine Clr Calc Pharmacy 25.6 ml/min; Est GFR (African American) 29.9 ml/min; Est GFR (Non-African American) 25.8 ml/min; Magnesium 1.7 mg/dl (1.7-2.4); Potassium 4.6 mmol/L (3.5-5.1)
--- NOTE | 2023-04-11 09:12 | Urology Progress Note ---
Date of Service April 11, 2023 Assessment & Plan (1) Complicated UTI (urinary tract infection): (2) Hydronephrosis: (3) PERRI (acute kidney injury): (4) Flank pain: Plan: - Pt POD#1 s/p cystoscopy and left stent placement - Subjectively feeling a little better today - Afebrile, lab work reviewed - creatinine 1.94, WBC 11.86 - continue to trend - Kidney urine culture from procedure is showing prelim yeast - Urine cultures showing no growth - Currently on Cefepime and Daptomycin, consider adding antifungal given prelim kidney aspirate - follow cultures - Tolerating left ureteral stent with some bother, but better than previous stent episodes - Okay to d/c from perspective when medically stable - Recommend d/c with appropriate course of PO antibiotics/antifungal, Tamsulosin, prn Pyridium and prn pain medication for stent management - Expected clinical course reviewed, all questions answered - Will arrange outpatient follow-up with our service to discuss stent management vs removal - will sign off, contact our service with any questions or concerns Admission and Anticipated Discharge Date Admission Date: April 07, 2023 Subjective POD #1 s/p cystoscopy and left ureteral stent placement Patient seen and examined at bedside this morning. She is awake and resting in bed. Feels some overall improvement since stent placed. However continues to have left flank discomfort and occasional nausea. Purvis patent and draining orange urine. No fever or chills. Patient's daughter present via telephone during visit. She reports she has noted improvement in her mother since stent placement. Review of Systems Constitutional: as per Subjective / HPI Gastrointestinal: as per Subjective / HPI Genitourinary: as per Subjective / HPI Physical Exam Constitutional: comfortable; no acute distress Respiratory: no respiratory distress and no labored breathing Gastrointestinal (Abdomen): Mild Left sided abd/flank tenderness Skin: Warm and dry Neurologic: awake Psychiatric: Orientation: alert, oriented x 3 and cooperative Genitourinary: Purvis patent and draining orange urine Results & Data Vital Signs (Past 12 Hours) Vital Signs Temp Pulse Pulse Resp BP Pulse Ox O2 Del Method 04/11/23 07:51 36.6 C 116 H 20 101/67 94 Room Air 04/11/23 07:12 57 L 04/11/23 04:33 36.7 C 64 18 109/67 100 Room Air 04/10/23 22:01 60 04/10/23 23:38 36.6 C 84 20 96/70 L 98 Nasal Cannula 04/10/23 22:47 Nasal Cannula O2 Flow Rate 04/11/23 07:51 04/11/23 07:12 04/11/23 04:33 04/10/23 22:01 04/10/23 23:38 2 04/10/23 22:47 2 PG Care Time/CCT Total # of Minutes Spent Total Time Spent with Patient: Total time spent is greater than 50% in coordination of care (as documented) at patient's floor/unit and/or counseling patient: Coding Level of Care Code 85434 SUB INP/OBS CARE 11/03MIN Diagnoses Complicated UTI (urinary tract infection) N39.0 Hydronephrosis N13.30 PERRI (acute kidney injury) N17.9 Flank pain R10.9
[2023-04-11 09:25] LABS: Ferritin 91.7 ng/ml (8-388)
[2023-04-11] MEDS ORDERED: FLUCONAZOLE 100 MG TAB PO ONE (14:52)
[2023-04-11] MEDS: ONDANSETRON INJ 2 MG/ML 2 ML VIAL IV PRN (15:59)
[2023-04-11] MEDS: diphenhydrAMINE HCL 25 MG/10 ML UDC PO PRN (15:59)
--- NOTE | 2023-04-11 18:52 | Hospitalist Progress Note ---
Date of Service April 11, 2023 Assessment & Plan (1) Complicated UTI (urinary tract infection): Plan: Complicated UTI Left hydroureteronephrosis H/O intolerance to stent placement in the past H/O VRE --CT ABD:The right kidney appears within normal limits. The left kidney is atrophic with chronic distention of the renal pelvis and ureter demonstrate mild surrounding inflammation, similar to previous. Probable mild chronic cystitis as well. Most of the colon has been resected. There is a small bowel to distal sigmoid colon anastomosis. No acute inflammatory changes are seen involving the bowel. --Repeat CT on 04/10/2023 suggestive of left-sided hydronephrosis, findings suggestive pyelonephritis. Also noted thick-walled left upper pole kidney cyst. --S/P cystoscopy, left retrograde pyelogram, left stent placed on 04/10/[address] Adam -- Urine culture: Negative --Repeat urine culture: Negative preliminarily --Kidney aspirate: yeast --Continue IV cefepime, daptomycin Appreciate Urology Input Continue Purvis catheter Given a dose of fluconazole Follow-up final culture Needs follow-up with urology upon discharge PT OT eval PERRI on CKD stage IV Non-anion gap metabolic acidosis Creatinine 3.2>>2.4>1.9 Received IV fluids Avoid nephrotoxic agents as able Monitor renal function Hypokalemia Replete electrolytes as needed Chronic diastolic heart failure Chronic respiratory failure/OHS/COPD/bronchiectasis as per records No signs of acute exacerbation -ECHO: EF 65 to 70%. Mild concentric LVH. 1 diastolic dysfunction. Mild tricuspid regurgitation. Estimated systolic pulmonary pressure 51 mm of Hg Continue home medications Monitor volume HTN BP low on metoprolol IV fluids as needed Monitor BP Hyperlipidemia Hold Lipitor while on daptomycin DM II Hold p.o. meds Continue insulin while hospitalized Monitor BGs Chronic anemia Hb at baseline H/O Colon cancer S/P surgery Anxiety/mood disorder Continue home medication DVT Px: Heparin SQ Code Status DNR/DNI Disposition To be determined Admission and Anticipated Discharge Date Admission Date: April 07, 2023 Subjective Patient is seen and examined at bedside Flank pain resolved Mild groin discomfort Reports itching and nausea Discussed with urology today Denies any chest pain, dyspnea, dizziness, abdominal pain Review of Systems Review of Systems: All systems reviewed & are unremarkable except as noted in Subjective Physical Exam Physical Exam: Physical Exam: Vitals signs as noted above General Appearance:Obese, no apparent distress Head: normocephalic, Atraumatic Eyes: normal inspection, EOMI Neck: supple, Trachea midline Respiratory/Chest: Normal breath sounds, CTA, No accessory muscle use Cardiovascular: S1, S2, No murmur Abdomen/GI:Soft, Mild L flank tender, Bowel sounds present Extremities/Musculoskeletal:normal inspection, + edema Neurologic/Psych:AAOX3, grossly no focal neurological deficits Skin: normal color, warm Results & Data Results & Data Vital Signs (Past 12 Hours) Vital Signs Temp Pulse Pulse Pulse Resp BP Pulse Ox 04/11/23 18:42 59 L 04/11/23 15:23 36.4 C L 60 20 102/65 96 04/11/23 11:25 37.0 C 60 20 100/66 94 04/11/23 07:51 36.6 C 116 H 20 101/67 94 04/11/23 07:12 57 L O2 Del Method 04/11/23 18:42 04/11/23 15:23 Room Air 04/11/23 11:25 Room Air 04/11/23 07:51 Room Air 04/11/23 07:12 Laboratory Results Short CBC 04/10/23 04/11/23 Range/Units 20:03 08:22 WBC 11.86 H (4.8-10.8) K/ul Hgb 8.4 L 9.0 L (12.0-16.0) g/dl Hct 28.4 L 29.7 L (37.0-47.0) % Plt Count 224 (130-400) K/uL BMP 04/11/23 08:22 Sodium 142 Potassium 4.6 Chloride 114 H Carbon Dioxide 22 BUN 18 Creatinine 1.94 H Glucose 158 H Calcium 8.5 L
[2023-04-11] MEDS: hydrOXYzine HCl 10 MG TAB PO SCH (21:39)
[2023-04-11] MEDS: HEPARIN SOD 5,000 UNIT/0.5 ML VIAL SQ SCH (21:39)
[2023-04-12] MEDS: oxyCODONE HCL IR 5 MG TAB (IMMEDIATE RELEASE) PO PRN ×3 (05:00→21:17)
[2023-04-12] MEDS: ONDANSETRON INJ 2 MG/ML 2 ML VIAL IV PRN ×3 (05:00→20:08)
[2023-04-12] MEDS: CEFEPIME 1,000 MG in SYRINGE 0 ML IV SCH (06:24)
[2023-04-12 06:38] LABS: Hematocrit (blood only) 25.6 % (37.0-47.0); Hemoglobin 7.7 g/dl (12.0-16.0); Mean Corpuscular Hemoglobin 30.8 pg (25.0-34.0); Mean Corpuscular Hgb Conc 30.1 g/dL (32.0-36.0); Mean Corpuscular Volume 102.4 fL (80.0-100.0); Mean Platelet Volume 10.8 fL (9.4-12.4); Platelet Count 197 K/uL (130-400); RDW Coefficient of Variation 16.2 % (11.5-14.5); RDW Standard Deviation 61.2 fL (36.4-46.3); White Blood Count 8.83 K/ul (4.8-10.8)
[2023-04-12 07:00] LABS: BUN Creatinine Ratio 8.8 (10-20); Calcium 8.2 mg/dl (8.6-10.3); Creatinine Clr Calc Pharmacy 26.2 ml/min; Est GFR (African American) 30.1 ml/min; Est GFR (Non-African American) 25.9 ml/min; Magnesium 1.7 mg/dl (1.7-2.4); Potassium 3.8 mmol/L (3.5-5.1)
[2023-04-12] MEDS: MIDODRINE HCL 2.5 MG TAB PO SCH ×3 (07:30→17:11)
[2023-04-12] MEDS: INSULIN ASPART PER UNIT CHARGE SC SCH ×4 (08:48→20:32)
[2023-04-12] MEDS: METOPROLOL SUCC 25MG EXT REL TAB PO SCH (08:49)
[2023-04-12] MEDS: HEPARIN SOD 5,000 UNIT/0.5 ML VIAL SQ SCH ×2 (08:49→21:35)
[2023-04-12] MEDS: OXYBUTYNIN CHLORIDE XL 5 MG TABCR PO SCH (08:49)
[2023-04-12] MEDS: OXcarbazepine 150 MG TABLET PO SCH ×2 (08:49→21:36)
[2023-04-12] MEDS: FOLIC ACID 1 MG TAB PO SCH (08:50)
[2023-04-12] MEDS: FERROUS GLUCONATE 324 MG TAB PO SCH (08:50)
[2023-04-12] MEDS: PHENAZOPYRIDINE HCL 200 MG TAB PO PRN (08:50)
[2023-04-12] MEDS: diphenhydrAMINE HCL 25 MG/10 ML UDC PO PRN ×2 (08:50→21:18)
[2023-04-12] MEDS: PANTOprazole 40 MG TAB PO SCH ×2 (08:50→21:36)
--- NOTE | 2023-04-12 16:24 | Hospitalist Progress Note ---
Date of Service April 12, 2023 Assessment & Plan (1) Complicated UTI (urinary tract infection): Plan: Complicated UTI Left hydroureteronephrosis H/O intolerance to stent placement in the past H/O VRE --CT ABD:The right kidney appears within normal limits. The left kidney is atrophic with chronic distention of the renal pelvis and ureter demonstrate mild surrounding inflammation, similar to previous. Probable mild chronic cystitis as well. Most of the colon has been resected. There is a small bowel to distal sigmoid colon anastomosis. No acute inflammatory changes are seen involving the bowel. --Repeat CT on 04/10/2023 suggestive of left-sided hydronephrosis, findings suggestive pyelonephritis. Also noted thick-walled left upper pole kidney cyst. --S/P cystoscopy, left retrograde pyelogram, left stent placed on 04/10/[address] Adam -- Urine culture: Negative --Repeat urine culture: Negative --Kidney aspirate: yeast--Preliminary --Continue IV cefepime IV Daptomycin discontinued Appreciate Urology Input Continue Purvis catheter Received a dose of fluconazole Follow-up final culture Needs follow-up with urology upon discharge PT OT eval--pending Consulted ID for further recommendations PERRI on CKD stage IV Non-anion gap metabolic acidosis Creatinine 3.2>>2.4>1.9 Received IV fluids Avoid nephrotoxic agents as able Monitor renal function Hypokalemia Replete electrolytes as needed Chronic diastolic heart failure Chronic respiratory failure/OHS/COPD/bronchiectasis as per records No signs of acute exacerbation -ECHO: EF 65 to 70%. Mild concentric LVH. 1 diastolic dysfunction. Mild tricuspid regurgitation. Estimated systolic pulmonary pressure 51 mm of Hg Continue home medications Monitor volume HTN BP low on metoprolol IV fluids as needed Monitor BP Hyperlipidemia Hold Lipitor while on daptomycin DM II Hold p.o. meds Continue insulin while hospitalized Monitor BGs Chronic anemia Hb at baseline H/O Colon cancer S/P surgery Anxiety/mood disorder Continue home medication DVT Px: Heparin SQ Code Status DNR/DNI Disposition To be determined PT OT prior to discharge Admission and Anticipated Discharge Date Admission Date: April 07, 2023 Subjective Patient is seen and examined at bedside States having discomfort from Purvis catheter Reports nausea intermittently Flank/groin pain improved Denies any chest pain, dyspnea, dizziness, abdominal pain Prefers Purvis catheter discontinued Review of Systems Review of Systems: All systems reviewed & are unremarkable except as noted in Subjective Physical Exam Physical Exam: Physical Exam: Vitals signs as noted above General Appearance:Obese, no apparent distress Head: normocephalic, Atraumatic Eyes: normal inspection, EOMI Neck: supple, Trachea midline Respiratory/Chest: Normal breath sounds, CTA, No accessory muscle use Cardiovascular: S1, S2, No murmur Abdomen/GI:Soft, Mild L flank tender, Bowel sounds present Extremities/Musculoskeletal:normal inspection, + edema Neurologic/Psych:AAOX3, grossly no focal neurological deficits Skin: normal color, warm Results & Data Results & Data Vital Signs (Past 12 Hours) Vital Signs Temp Pulse Pulse Pulse Resp BP Pulse Ox 04/12/23 16:07 65 04/12/23 15:15 36.5 C 62 20 116/79 96 04/12/23 11:42 36.6 C 60 20 93/61 L 04/12/23 08:44 36.7 C 61 18 93/53 L 97 04/12/23 07:27 57 L O2 Del Method O2 Flow Rate 04/12/23 16:07 04/12/23 15:15 Room Air 2 04/12/23 11:42 04/12/23 08:44 Room Air 04/12/23 07:27 Laboratory Results Short CBC 04/12/23 Range/Units 05:38 WBC 8.83 (4.8-10.8) K/ul Hgb 7.7 L (12.0-16.0) g/dl Hct 25.6 L (37.0-47.0) % Plt Count 197 (130-400) K/uL BMP 04/12/23 05:38 Sodium 141 Potassium 3.8 Chloride 114 H Carbon Dioxide 21 BUN 17 Creatinine 1.93 H Glucose 94 Calcium 8.2 L
[2023-04-12] MEDS: hydrOXYzine HCl 10 MG TAB PO SCH (21:35)
[2023-04-13] MEDS: CEFEPIME 1,000 MG in SYRINGE 0 ML IV SCH (05:04)
[2023-04-13] MEDS: oxyCODONE HCL IR 5 MG TAB (IMMEDIATE RELEASE) PO PRN ×4 (05:25→20:02)
[2023-04-13 07:58] LABS: Hematocrit (blood only) 25.5 % (37.0-47.0); Hemoglobin 7.6 g/dl (12.0-16.0); Mean Corpuscular Hemoglobin 31.1 pg (25.0-34.0); Mean Corpuscular Hgb Conc 29.8 g/dL (32.0-36.0); Mean Corpuscular Volume 104.5 fL (80.0-100.0); Mean Platelet Volume 10.6 fL (9.4-12.4); Platelet Count 178 K/uL (130-400); RDW Coefficient of Variation 15.9 % (11.5-14.5); RDW Standard Deviation 61.3 fL (36.4-46.3); Red Blood Count 2.44 M/uL (4.20-5.40); White Blood Count 7.64 K/ul (4.8-10.8)
[2023-04-13 08:28] LABS: BUN Creatinine Ratio 7.9 (10-20); Calcium 8.4 mg/dl (8.6-10.3); Creatinine Clr Calc Pharmacy 22.2 ml/min; Est GFR (African American) 24.6 ml/min; Est GFR (Non-African American) 21.2 ml/min
[2023-04-13] MEDS: INSULIN ASPART PER UNIT CHARGE SC SCH ×4 (08:33→20:33)
[2023-04-13] MEDS: OXcarbazepine 150 MG TABLET PO SCH ×2 (08:34→20:33)
[2023-04-13] MEDS: HEPARIN SOD 5,000 UNIT/0.5 ML VIAL SQ SCH ×2 (08:34→20:33)
[2023-04-13] MEDS: FOLIC ACID 1 MG TAB PO SCH (08:34)
[2023-04-13] MEDS: MIDODRINE HCL 2.5 MG TAB PO SCH ×3 (08:35→17:03)
[2023-04-13] MEDS: PHENAZOPYRIDINE HCL 200 MG TAB PO PRN (08:35)
[2023-04-13] MEDS: OXYBUTYNIN CHLORIDE XL 5 MG TABCR PO SCH (08:35)
[2023-04-13] MEDS: FERROUS GLUCONATE 324 MG TAB PO SCH (08:35)
[2023-04-13] MEDS: METOPROLOL SUCC 25MG EXT REL TAB PO SCH (08:36)
[2023-04-13] MEDS: PANTOprazole 40 MG TAB PO SCH ×2 (08:36→20:33)
[2023-04-13] MEDS: ONDANSETRON INJ 2 MG/ML 2 ML VIAL IV PRN ×3 (08:43→21:27)
--- NOTE | 2023-04-13 10:36 | Hospitalist Progress Note ---
Date of Service April 13, 2023 Assessment & Plan (1) Complicated UTI (urinary tract infection): Plan: Complicated UTI Left hydroureteronephrosis H/O intolerance to stent placement in the past H/O VRE --CT ABD:The right kidney appears within normal limits. The left kidney is atrophic with chronic distention of the renal pelvis and ureter demonstrate mild surrounding inflammation, similar to previous. Probable mild chronic cystitis as well. Most of the colon has been resected. There is a small bowel to distal sigmoid colon anastomosis. No acute inflammatory changes are seen involving the bowel. --Repeat CT on 04/10/2023 suggestive of left-sided hydronephrosis, findings suggestive pyelonephritis. Also noted thick-walled left upper pole kidney cyst. --S/P cystoscopy, left retrograde pyelogram, left stent placed on 04/10/[address] Adam -- Urine culture: Negative --Repeat urine culture: Negative --Kidney aspirate: yeast- - Ruben glabrata complex --Continue IV cefepime IV Daptomycin discontinued Appreciate Urology Input Continue Purvis catheter Received a dose of fluconazole Follow-up final culture Needs follow-up with urology upon discharge PT OT eval--pending Consulted ID for further recommendations - Discussed w/ ID Ruben glabrata and w/ pharmacy - will start treatment w/ amphotericin for now. Asked lab for sensitivities. PERRI on CKD stage IV Non-anion gap metabolic acidosis Creatinine 3.2>>2.4>1.9 > 2.2 Received IV fluids Avoid nephrotoxic agents as able Monitor renal function Hypokalemia Replete electrolytes as needed Chronic diastolic heart failure Chronic respiratory failure/OHS/COPD/bronchiectasis as per records No signs of acute exacerbation -ECHO: EF 65 to 70%. Mild concentric LVH. 1 diastolic dysfunction. Mild tricuspid regurgitation. Estimated systolic pulmonary pressure 51 mm of Hg Continue home medications Monitor volume HTN BP low on metoprolol IV fluids as needed Monitor BP Pt was started on midodrine during this admission - will decrease dose now as BP seems improved, will continue to closely monitor Hyperlipidemia Hold Lipitor while on daptomycin DM II Hold p.o. meds Continue insulin while hospitalized Monitor BGs Chronic anemia Hb at baseline H/O Colon cancer S/P surgery Anxiety/mood disorder Continue home medication DVT Px: Heparin SQ Code Status DNR/DNI Disposition To be determined PT OT prior to discharge Admission and Anticipated Discharge Date Admission Date: April 07, 2023 Subjective Patient seen in follow up of UTI Reports nausea intermittently Flank/groin pain improved Denies any chest pain, dyspnea, dizziness, abdominal pain Discussed w/ ID and pharmacy - ucultx posit. for ruben glabrata - will start treatment (for now w/ amphotericin). Lab also called to obtain sensitivities Review of Systems Review of Systems: All systems reviewed & are unremarkable except as noted in Subjective Physical Exam Physical Exam: General Appearance:Obese F in NAD Head: normocephalic, Atraumatic Eyes: normal inspection, EOMI Neck: supple Respiratory/Chest: Normal breath sounds, CTA, No accessory muscle use Cardiovascular: S1, S2, No murmur Abdomen/GI:Soft, Mild L flank tender, Bowel sounds present Extremities/Musculoskeletal:normal inspection, + edema Neurologic/Psych:AAOX3, grossly no focal neurological deficits Skin: normal color, warm Results & Data Results & Data Vital Signs (Past 12 Hours) Vital Signs Temp Pulse Pulse Pulse Resp BP Pulse Ox 04/13/23 08:25 37.0 C 71 18 91/56 L 97 04/13/23 08:06 65 04/13/23 03:07 36.5 C 78 18 99/54 L 99 04/12/23 23:48 63 04/12/23 23:36 04/12/23 23:14 36.7 C 67 18 99/62 L 99 O2 Del Method O2 Flow Rate 04/13/23 08:25 Nasal Cannula 2 04/13/23 08:06 04/13/23 03:07 Nasal Cannula 2 04/12/23 23:48 04/12/23 23:36 Nasal Cannula 2 04/12/23 23:14 Nasal Cannula 2 Laboratory Results 04/13/23 04/13/23 04/13/23 Range/Units 07:45 07:30 07:30 WBC 7.64 (4.8-10.8) K/ul RBC 2.44 L (4.20-5.40) M/uL Hgb 7.6 L (12.0-16.0) g/dl Hct 25.5 L (37.0-47.0) % MCV 104.5 H (80.0-100.0) fL MCH 31.1 (25.0-34.0) pg MCHC 29.8 L (32.0-36.0) g/dL RDW Std Deviation 61.3 H (36.4-46.3) fL RDW Coeff of Teresa 15.9 H (11.5-14.5) % Plt Count 178 (130-400) K/uL MPV 10.6 (9.4-12.4) fL Sodium 140 (136-145) mmol/L Potassium 4.0 (3.5-5.1) mmol/L Chloride 113 H (98-107) mmol/L Carbon Dioxide 23 (21-32) mmol/L Anion Gap 4 (3-11) BUN 18 (6-23) mg/dl Creatinine 2.28 H D (0.6-1.2) mg/dl Est Cr Clr Drug Dosing 22.2 ml/min Est GFR ( Amer) 24.6 ml/min Est GFR (Non-Af Amer) 21.2 ml/min BUN/Creatinine Ratio 7.9 L (10-20) Glucose 97 (70-99(Fasting)) mg/dl POC Glucose 100 H (70-99) mg/dl Calcium 8.4 L (8.6-10.3) mg/dl 04/12/23 04/12/23 04/12/23 Range/Units 20:11 16:18 11:22 WBC (4.8-10.8) K/ul RBC (4.20-5.40) M/uL Hgb (12.0-16.0) g/dl Hct (37.0-47.0) % MCV (80.0-100.0) fL MCH (25.0-34.0) pg MCHC (32.0-36.0) g/dL RDW Std Deviation (36.4-46.3) fL RDW Coeff of Teresa (11.5-14.5) % Plt Count (130-400) K/uL MPV (9.4-12.4) fL Sodium (136-145) mmol/L Potassium (3.5-5.1) mmol/L Chloride (98-107) mmol/L Carbon Dioxide (21-32) mmol/L Anion Gap (3-11) BUN (6-23) mg/dl Creatinine (0.6-1.2) mg/dl Est Cr Clr Drug Dosing ml/min Est GFR ( Amer) ml/min Est GFR (Non-Af Amer) ml/min BUN/Creatinine Ratio (10-20) Glucose (70-99(Fasting)) mg/dl POC Glucose 110 H 104 H 129 H (70-99) mg/dl Calcium (8.6-10.3) mg/dl Medications Administered Current Inpatient Medications Acetaminophen (Acetaminophen 325 Mg Tab) 650 mg PO Q6H PRN PRN Reason: Fever/Pain Stop: 05/07/23 00:53 Last Admin: 04/10/23 05:53 Dose: 650 mg Dextrose (Dextrose 50% 50 Ml Syringe) 25 - 50 ml IV UD PRN; Protocol PRN Reason: Hypoglycemia Protocol Stop: 05/07/23 01:31 Diphenhydramine HCl (Diphenhydramine Hcl 25 Mg/10 Ml Udc) 25 mg PO Q6H PRN PRN Reason: Itching Stop: 05/11/23 11:01 Last Admin: 04/12/23 21:18 Dose: 25 mg Ferrous Gluconate (Ferrous Gluconate 324 Mg Tab) 324 mg PO QAM MARLA Stop: 05/07/23 08:59 Last Admin: 04/13/23 08:35 Dose: 324 mg Folic Acid (Folic Acid 1 Mg Tab) 1 mg PO QAM MARLA Stop: 05/07/23 08:59 Last Admin: 04/13/23 08:34 Dose: 1 mg Glucagon (Glucagon For Inj 1 Mg Vial) 1 mg SQ UD PRN; Protocol PRN Reason: Hypoglycemia Protocol Stop: 05/07/23 01:31 Glucose (Glucose 40% Gel 15 Gm Tube) 15 - 30 gm PO UD PRN; Protocol PRN Reason: Hypoglycemia Protocol Stop: 05/07/23 01:31 Glucose (Glucose 10 Tab/Tube) 4 - 8 tab PO UD PRN; Protocol PRN Reason: Hypoglycemia Treatment Stop: 05/07/23 01:31 Heparin Sodium (Porcine) (Heparin Sod 5,000 Unit/0.5 Ml Vial) 5,000 units SQ Q12 MARLA Stop: 05/10/23 20:59 Last Admin: 04/13/23 08:34 Dose: 5,000 units Hydroxyzine HCl (Hydroxyzine Hcl 10 Mg Tab) 10 mg PO HS MARLA Stop: 05/07/23 20:59 Last Admin: 04/12/23 21:35 Dose: 10 mg Cefepime HCl 1,000 mg/ Syringe 10 mls @ 5 mls/min IV Q24H [facility]; Protocol Stop: 04/14/23 05:59 Last Admin: 04/13/23 05:04 Dose: 5 mls/min Insulin Aspart (Insulin Aspart Per Unit Charge) 0 units SC ACHS [facility] Stop: 05/07/23 01:31 Last Admin: 04/13/23 08:33 Dose: Not Given Metoprolol Succinate (Metoprolol Succ 25mg Ext Rel Tab) 25 mg PO QAM [facility] Stop: 05/07/23 08:59 Last Admin: 04/13/23 08:36 Dose: Not Given Midodrine (Midodrine Hcl 2.5 Mg Tab) 5 mg PO TID@0800,1200,1700 [facility] Stop: 05/10/23 07:59 Last Admin: 04/13/23 08:35 Dose: 5 mg Miscellaneous (Carbohydrates For Hypoglycemia ) 15 - 30 gm PO UD PRN PRN Reason: Hypoglycemia Protocol Stop: 05/07/23 01:31 Ondansetron HCl (Ondansetron Inj 2 Mg/Ml 2 Ml Vial) 4 mg IV Q6H PRN PRN Reason: Nausea And Vomiting Stop: 05/11/23 15:48 Last Admin: 04/13/23 08:43 Dose: 4 mg Oxcarbazepine (Oxcarbazepine 150 Mg Tablet) 300 mg PO BID [facility] Stop: 05/07/23 08:59 Last Admin: 04/13/23 08:34 Dose: 300 mg Oxybutynin Chloride (Oxybutynin Chloride Xl 5 Mg Tabcr) [facility] [place] Stop: 05/07/23 08:59 Last Admin: 04/13/23 08:35 Dose: 5 mg Oxycodone HCl (Oxycodone Hcl Ir 5 Mg Tab (Immediate Release)) 5 mg PO Q4H PRN PRN Reason: Pain Stop: 04/21/23 00:47 Last Admin: 04/13/23 05:25 Dose: 5 mg Pantoprazole Sodium (Pantoprazole 40 Mg Tab) 40 mg PO BID [facility] Stop: 05/07/23 08:59 Last Admin: 04/13/23 08:36 Dose: 40 mg Phenazopyridine HCl (Phenazopyridine Hcl 200 Mg Tab) 200 mg PO TID PRN PRN Reason: Dysuria Stop: 05/10/23 11:13 Last Admin: 04/13/23 08:35 Dose: 200 mg
[2023-04-13] MEDS ORDERED: AMPHOTERICIN B CONSULT ACTIVE **For IV Formulations PRN (17:00)
[2023-04-13] MEDS: diphenhydrAMINE HCL 25 MG/10 ML UDC PO PRN (17:18)
[2023-04-13] MEDS ORDERED: NYSTATIN POWDER 15GM BTL EXT PRN (17:40)
[2023-04-13] MEDS ORDERED: FLUCYTOSINE 500 MG CAP PO SCH (18:00)
[2023-04-13] MEDS ORDERED: SODIUM CHLORIDE 0.9% 500 ML IV SCH (18:00)
[2023-04-13] MEDS ORDERED: MIDODRINE HCL 2.5 MG TAB PO SCH (18:09)
[2023-04-13] MEDS: [UNRECOGNIZED DRUG - OTHER] IV SCH (18:43)
[2023-04-13] MEDS: DEXTROSE 5% IV SCH (18:43)
[2023-04-13] MEDS: hydrOXYzine HCl 10 MG TAB PO SCH (20:33)
[2023-04-13] MEDS ORDERED: ACETAMINOPHEN 1,000 MG/100 ML VIAL IV STA (20:47)
[2023-04-13] MEDS ORDERED: NALOXONE HCL 0.4 MG/1 ML VIAL/CARP IV STA (21:14)
--- NOTE | 2023-04-13 21:33 | Communication Note ---
Date of Service: April 13, 2023 Notified by RN of decreased mentation. Patient with myoclonic jerks. Patient earlier complained of worsening abdominal pain for which oxycodone was given. Fever spike, tachycardia noted. Improved mentation after Narcan administration on the floor. Patient also complaining of headache. CT head: No acute findings in the head/brain. CT abdomen pelvis: 1. Bilateral pleural effusions 2. Left sided internalized ureteral stent appropriate position no left hydronephrosis 3. Postoperative changes prior cholecystectomy UA WBC est, nitrate positive AP Encephalopathy Multifactorial sepsis secondary to recurrent UTI Opioid narcosis CS, Cefepime IVF Hold narcotics for now given opioid toxicity.
[2023-04-13] MEDS ORDERED: LACTATED RINGER'S 1,000 ML IV ONE (21:34)
--- NOTE | 2023-04-13 22:18 | CT Scan Report ---
Exam(s): CT ABDOMEN + PELVIS Without Contrast EXAM: CT Abdomen and Pelvis Without Intravenous Contrast CLINICAL HISTORY: Reason for exam: worsening belly pain. TECHNIQUE: Axial computed tomography images of the abdomen and pelvis without intravenous contrast. CTDI is 35.67 mGy and DLP is 1669.05 mGy-cm. Automated exposure control was utilized for the study. A dose lowering technique was utilized adhering to the principles of ALARA. COMPARISON: No relevant prior studies available. FINDINGS: Lung bases: Unremarkable. No mass. No consolidation. Pleural space: bilateral pleural effusions right greater than left. Mediastinum: Large esophageal hiatal hernia. ABDOMEN: Liver: Unremarkable. Gallbladder and bile ducts: Postoperative changes prior cholecystectomy. No ductal dilation. Pancreas: Unremarkable. No ductal dilation. Spleen: Unremarkable. No splenomegaly. Adrenals: Unremarkable. No mass. Kidneys and ureters: Nonobstructing right lower pole renal calculus. Stomach and bowel: Unremarkable. No obstruction. No mucosal thickening. PELVIS: Appendix: No findings to suggest acute appendicitis. Bladder: Unremarkable. No stones. Reproductive: Unremarkable as visualized. ABDOMEN and PELVIS: Intraperitoneal space: Unremarkable. No significant fluid collection. No free air or intestinal obstruction. Bones/joints: No acute fracture. No dislocation. Soft tissues: Unremarkable. Vasculature: Unremarkable. No abdominal aortic aneurysm. Lymph nodes: Unremarkable. No enlarged lymph nodes. Tubes, lines and devices: Left sided internalized ureteral stent with its proximal and distal aspects approximately located within the left renal pelvis and urinary bladder respectively. Left renal parenchymal atrophy with left renal cyst measuring 6.6 cm. Mild left periureteral stranding likely reactive in nature secondary to the presence of the above-mentioned catheter. IMPRESSION: 1. Bilateral pleural effusions 2. Left sided internalized ureteral stent appropriate position no left hydronephrosis 3. Postoperative changes prior cholecystectomy Electronically signed by: Edy Suresh MD 04/13/23 22:17 PM
--- NOTE | 2023-04-13 22:22 | CT Scan Report ---
Exam(s): CT HEAD Without Contrast EXAM: CT Head Without Intravenous Contrast CLINICAL HISTORY: Reason for exam: jaime. TECHNIQUE: Axial computed tomography images of the head/brain without intravenous contrast. CTDI is 36.67 mGy and DLP is 546.36 mGy-cm. Automated exposure control was utilized for the study. A dose lowering technique was utilized adhering to the principles of ALARA. COMPARISON: 10/16/2021 FINDINGS: Limitations: Exam slightly limited secondary to patient motion artifact. Brain: Unremarkable. No significant white matter disease. No acute intracranial hemorrhage. No acute cortical infarct. Ventricles: Unremarkable. No ventriculomegaly. Bones/joints: Unremarkable. No acute fracture. Soft tissues: Unremarkable. Sinuses: Unremarkable as visualized. No acute sinusitis. Mastoid air cells: Unremarkable as visualized. No mastoid effusion. IMPRESSION: Exam limited as described above. No acute findings in the head/brain. Electronically signed by: Edy Suresh MD 04/13/23 22:21 PM
[2023-04-13 23:40] LABS: Appearance Urine Cloudy (Clear); Bacteria Urine Automated Negative (Negative); Bilirubin Urine Negative (Negative); Blood Urine 3+ (Negative); Cast Urine Automated 0 /lpf (0-5); Color Urine Dark Yellow; Glucose Urine UA Negative (Negative); Ketones Urine Negative (Negative); Leukocyte Esterase Urine 3+ (Negative); Nitrite Urine Positive (Negative); Protein Urine 2+ (Negative); RBC Urine Automated >30 /hpf (0-4); Specific Gravity Urine 1.012 (1.000-1.030); Urobilinogen Urine Negative (Negative); WBC Urine Automated >30 /hpf (0-5)
[2023-04-13 23:41] LABS: Albumin Level 2.6 gm/dl (3.4-5.0); Bilirubin,Total 0.4 mg/dl (0.2-1.0); Calcium 8.7 mg/dl (8.6-10.3); Magnesium 1.5 mg/dl (1.7-2.4); Potassium 3.3 mmol/L (3.5-5.1)
[2023-04-13 23:47] LABS: BUN Creatinine Ratio 8.1 (10-20); Est GFR (African American) 25.5 ml/min; Globulin 2.6 gm/dl (2.5-4.0); Total Protein 5.2 gm/dl (6.0-8.3)
[2023-04-14] MEDS: POTASSIUM CHLORIDE / WTR 10 MEQ/100 ML PLCT IV SCH ×3 (00:52→02:57)
[2023-04-14] MEDS ORDERED: SODIUM CHLORIDE 0.9% 500 ML IV ONE (01:00)
[2023-04-14] MEDS: CEFEPIME 1,000 MG in SYRINGE 0 ML IV SCH ×2 (02:02→13:17)
[2023-04-14] MEDS: MAGNESIUM SULFATE / D5W 1 GM/100 ML BAG IV SCH (02:05)
[2023-04-14 06:34] LABS: Hematocrit (blood only) 25.8 % (37.0-47.0); Hemoglobin 7.6 g/dl (12.0-16.0); Mean Corpuscular Hemoglobin 31.3 pg (25.0-34.0); Mean Corpuscular Hgb Conc 29.5 g/dL (32.0-36.0); Mean Corpuscular Volume 106.2 fL (80.0-100.0); Mean Platelet Volume 10.2 fL (9.4-12.4); Platelet Count 145 K/uL (130-400); RDW Coefficient of Variation 15.7 % (11.5-14.5); RDW Standard Deviation 61.8 fL (36.4-46.3); Red Blood Count 2.43 M/uL (4.20-5.40); White Blood Count 16.58 K/ul (4.8-10.8)
[2023-04-14 07:07] LABS: Calcium 8.2 mg/dl (8.6-10.3); Creatinine Clr Calc Pharmacy 22.4 ml/min; Est GFR (African American) 24.7 ml/min; Est GFR (Non-African American) 21.3 ml/min; Magnesium 2.2 mg/dl (1.7-2.4); Potassium 4.5 mmol/L (3.5-5.1)
[2023-04-14] MEDS: INSULIN ASPART PER UNIT CHARGE SC SCH ×4 (09:49→20:27)
[2023-04-14] MEDS: OXYBUTYNIN CHLORIDE XL 5 MG TABCR PO SCH (09:50)
[2023-04-14] MEDS: HEPARIN SOD 5,000 UNIT/0.5 ML VIAL SQ SCH ×2 (09:50→20:37)
[2023-04-14] MEDS: PANTOprazole 40 MG TAB PO SCH ×2 (09:50→20:38)
[2023-04-14] MEDS: FERROUS GLUCONATE 324 MG TAB PO SCH (09:51)
[2023-04-14] MEDS: PHENAZOPYRIDINE HCL 200 MG TAB PO PRN (09:51)
[2023-04-14] MEDS: OXcarbazepine 150 MG TABLET PO SCH ×2 (09:51→20:38)
[2023-04-14] MEDS: METOPROLOL SUCC 25MG EXT REL TAB PO SCH (09:51)
[2023-04-14] MEDS: FOLIC ACID 1 MG TAB PO SCH (09:53)
--- NOTE | 2023-04-14 10:39 | Hospitalist Progress Note ---
Date of Service April 14, 2023 Assessment & Plan (1) Complicated UTI (urinary tract infection): Plan: Complicated UTI Left hydroureteronephrosis H/O intolerance to stent placement in the past H/O VRE --CT ABD:The right kidney appears within normal limits. The left kidney is atrophic with chronic distention of the renal pelvis and ureter demonstrate mild surrounding inflammation, similar to previous. Probable mild chronic cystitis as well. Most of the colon has been resected. There is a small bowel to distal sigmoid colon anastomosis. No acute inflammatory changes are seen involving the bowel. --Repeat CT on 04/10/2023 suggestive of left-sided hydronephrosis, findings suggestive pyelonephritis. Also noted thick-walled left upper pole kidney cyst. --S/P cystoscopy, left retrograde pyelogram, left stent placed on 04/10/[address] Adam -- Urine culture: Negative --Repeat urine culture: Negative --Kidney aspirate: yeast- - Ruben glabrata complex --Continue IV cefepime IV Daptomycin discontinued Appreciate Urology Input Continue Purvis catheter Received a dose of fluconazole Follow-up final culture Needs follow-up with urology upon discharge PT OT eval--pending Consulted ID for further recommendations - Discussed w/ ID Ruben glabrata and w/ pharmacy - started treatment w/ amphotericin (04/13/23) for now. Asked lab for sensitivities. Discussed again w/ ID (04/14/23) - continue w/ amphotericin PERRI on CKD stage IV Non-anion gap metabolic acidosis Creatinine 3.2>>2.4>1.9 > 2.2 Received IV fluids Avoid nephrotoxic agents as able Monitor renal function Hypokalemia Replete electrolytes as needed Chronic diastolic heart failure Chronic respiratory failure/OHS/COPD/bronchiectasis as per records No signs of acute exacerbation -ECHO: EF 65 to 70%. Mild concentric LVH. 1 diastolic dysfunction. Mild tricuspid regurgitation. Estimated systolic pulmonary pressure 51 mm of Hg Continue home medications Monitor volume HTN BP low on metoprolol IV fluids as needed Monitor BP Pt was started on midodrine during this admission - continue to closely monitor Hyperlipidemia Hold Lipitor while on daptomycin DM II Hold p.o. meds Continue insulin while hospitalized Monitor BGs Chronic anemia Hb at baseline H/O Colon cancer S/P surgery Anxiety/mood disorder Continue home medication DVT Px: Heparin SQ Code Status DNR/DNI Disposition To be determined PT OT prior to discharge Admission and Anticipated Discharge Date Admission Date: April 07, 2023 Subjective Patient seen in follow up of UTI Reports nausea intermittently Flank/groin pain improved Denies any chest pain, dyspnea, dizziness, abdominal pain Discussed w/ ID and pharmacy yesterday - ucultx posit. for ruben glabrata - started treatment (for now w/ amphotericin). Lab also called to obtain sensitivities Overnight patient had altered consciousness, tachycardia, fever. Received Amphotericin she also obtained oxycodone, and then Narcan. See electronic induction hardener note for further detail. Currently she is lying in bed, in no acute distress. Overall she still does not feel well. Patient's updated over the phone. Discussed w/ ID and pharmacy - per ID - want to continue w/ amphotericin for now Review of Systems Review of Systems: All systems reviewed & are unremarkable except as noted in Subjective Physical Exam Physical Exam: General Appearance: Obese F in NAD Head: normocephalic, Atraumatic Eyes: normal inspection, EOMI Neck: supple Respiratory/Chest: Normal breath sounds, CTA, No accessory muscle use Cardiovascular: S1, S2, No murmur Abdomen/GI:Soft, Mild L flank tender, Bowel sounds present Extremities/Musculoskeletal:normal inspection, + edema Neurologic/Psych:AAOX3, grossly no focal neurological deficits Skin: normal color, warm Results & Data Results & Data Vital Signs (Past 12 Hours) Vital Signs Temp Pulse Pulse Pulse Resp BP Pulse Ox 04/14/23 08:10 36.7 C 78 18 94/63 L 96 04/14/23 01:00 04/14/23 03:05 37.0 C 80 18 114/75 97 04/14/23 00:06 96 H 04/13/23 23:36 04/13/23 23:01 37.6 C H 104 H 18 96/64 L 94 Pulse Ox O2 Del Method O2 Del Method O2 Flow Rate O2 Flow Rate 04/14/23 08:10 Nasal Cannula 2 04/14/23 01:00 97 Nasal Cannula 2 04/14/23 03:05 Nasal Cannula 2 04/14/23 00:06 04/13/23 23:36 Nasal Cannula 2 04/13/23 23:01 Nasal Cannula 2 Laboratory Results 04/14/23 04/14/23 04/14/23 Range/Units 07:46 05:47 05:47 WBC 16.58 H (4.8-10.8) K/ul RBC 2.43 L (4.20-5.40) M/uL Hgb 7.6 L (12.0-16.0) g/dl Hct 25.8 L (37.0-47.0) % MCV 106.2 H (80.0-100.0) fL MCH 31.3 (25.0-34.0) pg MCHC 29.5 L (32.0-36.0) g/dL RDW Std Deviation 61.8 H (36.4-46.3) fL RDW Coeff of Teresa 15.7 H (11.5-14.5) % Plt Count 145 (130-400) K/uL MPV 10.2 (9.4-12.4) fL Sodium 136 (136-145) mmol/L Potassium 4.5 D (3.5-5.1) mmol/L Chloride 110 H (98-107) mmol/L Carbon Dioxide 21 (21-32) mmol/L Anion Gap 5 (3-11) BUN 16 (6-23) mg/dl Creatinine 2.27 H (0.6-1.2) mg/dl Est Cr Clr Drug Dosing 22.4 ml/min Est GFR ( Amer) 24.7 ml/min Est GFR (Non-Af Amer) 21.3 ml/min BUN/Creatinine Ratio 7.0 L (10-20) Glucose 120 H (70-99(Fasting)) mg/dl POC Glucose 94 (70-99) mg/dl Calcium 8.2 L (8.6-10.3) mg/dl Phosphorus 3.0 (2.5-4.9) mg/dl Magnesium 2.2 (1.7-2.4) mg/dl Total Bilirubin (0.2-1.0) mg/dl AST (13-39) U/L ALT (7-52) U/L Alkaline Phosphatase (34-104) U/L Total Protein (6.0-8.3) gm/dl Albumin (3.4-5.0) gm/dl Globulin (2.5-4.0) gm/dl Albumin/Globulin Ratio (0.9-2) Lipase (11-82) U/L Urine Color Urine Appearance (Clear) Urine pH (4.5-7.5) Ur Specific [place] (1.000-1.030) Urine Protein (Negative) Urine Glucose (UA) (Negative) Urine Ketones (Negative) Urine Blood (Negative) Urine Nitrite (Negative) Urine Bilirubin (Negative) Urine Urobilinogen (Negative) Ur Leukocyte Esterase (Negative) Urine WBC (Auto) (0-5) /hpf Urine RBC (Auto) (0-4) /hpf U Hyaline Cast (Auto) (0-5) /lpf U Epithel Cells (Auto) (0-5) /lpf Urine Bacteria (Auto) (Negative) Urine Yeast 04/13/23 04/13/23 04/13/23 Range/Units 23:11 23:07 21:17 WBC (4.8-10.8) K/ul RBC (4.20-5.40) M/uL Hgb (12.0-16.0) g/dl Hct (37.0-47.0) % MCV (80.0-100.0) fL MCH (25.0-34.0) pg MCHC (32.0-36.0) g/dL RDW Std Deviation (36.4-46.3) fL RDW Coeff of Teresa (11.5-14.5) % Plt Count (130-400) K/uL MPV (9.4-12.4) fL Sodium 138 (136-145) mmol/L Potassium 3.3 L (3.5-5.1) mmol/L Chloride 112 H (98-107) mmol/L Carbon Dioxide 21 (21-32) mmol/L Anion Gap 5 (3-11) BUN 18 (6-23) mg/dl Creatinine 2.21 H (0.6-1.2) mg/dl Est Cr Clr Drug Dosing 23.0 ml/min Est GFR ( Amer) 25.5 ml/min Est GFR (Non-Af Amer) 22.0 ml/min BUN/Creatinine Ratio 8.1 L (10-20) Glucose 103 H (70-99(Fasting)) mg/dl POC Glucose 96 (70-99) mg/dl Calcium 8.7 (8.6-10.3) mg/dl Phosphorus (2.5-4.9) mg/dl Magnesium 1.5 L (1.7-2.4) mg/dl Total Bilirubin 0.4 (0.2-1.0) mg/dl AST 9 L (13-39) U/L ALT 7 (7-52) U/L Alkaline Phosphatase 108 H (34-104) U/L Total Protein 5.2 L (6.0-8.3) gm/dl Albumin 2.6 L (3.4-5.0) gm/dl Globulin 2.6 (2.5-4.0) gm/dl Albumin/Globulin Ratio 1.0 (0.9-2) Lipase 17 (11-82) U/L Urine Color Dark Yellow Urine Appearance Cloudy A (Clear) Urine pH 6.0 (4.5-7.5) Ur Specific [place] 1.012 (1.000-1.030) Urine Protein 2+ H (Negative) Urine Glucose (UA) Negative (Negative) Urine Ketones Negative (Negative) Urine Blood 3+ H (Negative) Urine Nitrite Positive A (Negative) Urine Bilirubin Negative (Negative) Urine Urobilinogen Negative (Negative) Ur Leukocyte Esterase 3+ H (Negative) Urine WBC (Auto) >30 H (0-5) /hpf Urine RBC (Auto) >30 H (0-4) /hpf U Hyaline Cast (Auto) 0 (0-5) /lpf U Epithel Cells (Auto) 10-20 H (0-5) /lpf Urine Bacteria (Auto) Negative (Negative) Urine Yeast Not Reportable 04/13/23 04/13/23 04/13/23 Range/Units 20:23 16:45 11:41 WBC (4.8-10.8) K/ul RBC (4.20-5.40) M/uL Hgb (12.0-16.0) g/dl Hct (37.0-47.0) % MCV (80.0-100.0) fL MCH (25.0-34.0) pg MCHC (32.0-36.0) g/dL RDW Std Deviation (36.4-46.3) fL RDW Coeff of Teresa (11.5-14.5) % Plt Count (130-400) K/uL MPV (9.4-12.4) fL Sodium (136-145) mmol/L Potassium (3.5-5.1) mmol/L Chloride (98-107) mmol/L Carbon Dioxide (21-32) mmol/L Anion Gap (3-11) BUN (6-23) mg/dl Creatinine (0.6-1.2) mg/dl Est Cr Clr Drug Dosing ml/min Est GFR ( Amer) ml/min Est GFR (Non-Af Amer) ml/min BUN/Creatinine Ratio (10-20) Glucose (70-99(Fasting)) mg/dl POC Glucose 91 124 H 124 H (70-99) mg/dl Calcium (8.6-10.3) mg/dl Phosphorus (2.5-4.9) mg/dl Magnesium (1.7-2.4) mg/dl Total Bilirubin (0.2-1.0) mg/dl AST (13-39) U/L ALT (7-52) U/L Alkaline Phosphatase (34-104) U/L Total Protein (6.0-8.3) gm/dl Albumin (3.4-5.0) gm/dl Globulin (2.5-4.0) gm/dl Albumin/Globulin Ratio (0.9-2) Lipase (11-82) U/L Urine Color Urine Appearance (Clear) Urine pH (4.5-7.5) Ur Specific [place] (1.000-1.030) Urine Protein (Negative) Urine Glucose (UA) (Negative) Urine Ketones (Negative) Urine Blood (Negative) Urine Nitrite (Negative) Urine Bilirubin (Negative) Urine Urobilinogen (Negative) Ur Leukocyte Esterase (Negative) Urine WBC (Auto) (0-5) /hpf Urine RBC (Auto) (0-4) /hpf U Hyaline Cast (Auto) (0-5) /lpf U Epithel Cells (Auto) (0-5) /lpf Urine Bacteria (Auto) (Negative) Urine Yeast Medications Administered Current Inpatient Medications Acetaminophen (Acetaminophen 325 Mg Tab) 650 mg PO Q6H PRN PRN Reason: Fever/Pain Stop: 05/07/23 00:53 Last Admin: 04/10/23 05:53 Dose: 650 mg Amphotericin B (Amphotericin B Consult Active For Iv Formulations) 1 each N/A UD PRN PRN Reason: Consult Stop: 05/13/23 16:59 Dextrose (Dextrose 50% 50 Ml Syringe) 25 - 50 ml IV UD PRN; Protocol PRN Reason: Hypoglycemia Protocol Stop: 05/07/23 01:31 Diphenhydramine HCl (Diphenhydramine Hcl 25 Mg/10 Ml Udc) 25 mg PO Q6H PRN PRN Reason: Itching Stop: 05/11/23 11:01 Last Admin: 04/13/23 17:18 Dose: 25 mg Ferrous Gluconate (Ferrous Gluconate 324 Mg Tab) 324 mg PO QAM MARLA Stop: 05/07/23 08:59 Last Admin: 04/14/23 09:51 Dose: 324 mg Folic Acid (Folic Acid 1 Mg Tab) 1 mg PO QAM MARLA Stop: 05/07/23 08:59 Last Admin: 04/14/23 09:53 Dose: 1 mg Glucagon (Glucagon For Inj 1 Mg Vial) 1 mg SQ UD PRN; Protocol PRN Reason: Hypoglycemia Protocol Stop: 05/07/23 01:31 Glucose (Glucose 40% Gel 15 Gm Tube) 15 - 30 gm PO UD PRN; Protocol PRN Reason: Hypoglycemia Protocol Stop: 05/07/23 01:31 Glucose (Glucose 10 Tab/Tube) 4 - 8 tab PO UD PRN; Protocol PRN Reason: Hypoglycemia Treatment Stop: 05/07/23 01:31 Heparin Sodium (Porcine) (Heparin Sod 5,000 Unit/0.5 Ml Vial) 5,000 units SQ Q12 MARLA Stop: 05/10/23 20:59 Last Admin: 04/14/23 09:50 Dose: 5,000 units Hydroxyzine HCl (Hydroxyzine Hcl 10 Mg Tab) 10 mg PO HS MARLA Stop: 05/07/23 20:59 Last Admin: 04/13/23 20:33 Dose: 10 mg Amphotericin B 50 mg/ Dextrose 500 mls @ 82 mls/hr IV Q24H MARLA Stop: 04/23/23 17:59 Last Infusion: 04/14/23 02:01 Dose: Infused Lactated Ringer's (Lr) 1,000 mls @ 60 mls/hr IV .[id number] ONE Stop: 04/14/23 14:13 Last Admin: 04/14/23 00:18 Dose: 60 mls/hr Cefepime HCl 1,000 mg/ Syringe 10 mls @ 5 mls/min IV Q12H MARLA; Protocol Stop: 04/24/23 00:59 Last Admin: 04/14/23 02:02 Dose: 5 mls/min Insulin Aspart (Insulin Aspart Per Unit Charge) 0 units SC ACHS [facility] Stop: 05/07/23 01:31 Last Admin: 04/14/23 09:49 Dose: Not Given Metoprolol Succinate (Metoprolol Succ 25mg Ext Rel Tab) 25 mg PO QAM [facility] Stop: 05/07/23 08:59 Last Admin: 04/14/23 09:51 Dose: Not Given Midodrine (Midodrine Hcl 2.5 Mg Tab) 2.5 mg PO TID@0800,1200,1700 [facility] Stop: 05/10/23 07:59 Last Admin: 04/14/23 09:50 Dose: 2.5 mg Miscellaneous (Carbohydrates For Hypoglycemia ) 15 - 30 gm PO UD PRN PRN Reason: Hypoglycemia Protocol Stop: 05/07/23 01:31 Nystatin (Nystatin Powder 15gm Btl) 1 appln EXT PRN PRN PRN Reason: Affected Skin Folds Stop: 05/13/23 17:39 Ondansetron HCl (Ondansetron Inj 2 Mg/Ml 2 Ml Vial) 4 mg IV Q6H PRN PRN Reason: Nausea And Vomiting Stop: 05/11/23 15:48 Last Admin: 04/13/23 21:27 Dose: 4 mg Oxcarbazepine (Oxcarbazepine 150 Mg Tablet) 300 mg PO BID [facility] Stop: 05/07/23 08:59 Last Admin: 04/14/23 09:51 Dose: 300 mg Oxybutynin Chloride (Oxybutynin Chloride Xl 5 Mg Tabcr) 5 mg PO [facility] Stop: 05/07/23 08:59 Last Admin: 04/14/23 09:50 Dose: 5 mg Oxycodone HCl (Oxycodone Hcl Ir 5 Mg Tab (Immediate Release)) 5 mg PO Q4H PRN PRN Reason: Pain Stop: 04/21/23 00:47 Last Admin: 04/13/23 20:02 Dose: 5 mg Pantoprazole Sodium (Pantoprazole 40 Mg Tab) 40 mg PO BID [facility] Stop: 05/07/23 08:59 Last Admin: 04/14/23 09:50 Dose: 40 mg Phenazopyridine HCl (Phenazopyridine Hcl 200 Mg Tab) 200 mg PO TID PRN PRN Reason: Dysuria Stop: 05/10/23 11:13 Last Admin: 04/14/23 09:51 Dose: 200 mg
[2023-04-14] MEDS: MIDODRINE HCL 2.5 MG TAB PO SCH ×2 (13:17→17:57)
[2023-04-14] MEDS: DAPTOmycin 375 MG in SYRINGE 0 ML IV SCH (19:34)
[2023-04-14] MEDS: DEXTROSE 5% IV SCH (19:34)
[2023-04-14] MEDS: [UNRECOGNIZED DRUG - OTHER] IV SCH (19:34)
[2023-04-14] MEDS: ONDANSETRON INJ 2 MG/ML 2 ML VIAL IV PRN (20:38)
[2023-04-15] MEDS: CEFEPIME 1,000 MG in SYRINGE 0 ML IV SCH ×2 (00:24→12:35)
--- NOTE | 2023-04-15 06:51 | Hospitalist Progress Note ---
Date of Service April 15, 2023 Assessment & Plan (1) Complicated UTI (urinary tract infection): Plan: Complicated UTI Left hydroureteronephrosis H/O intolerance to stent placement in the past H/O VRE --CT ABD:The right kidney appears within normal limits. The left kidney is atrophic with chronic distention of the renal pelvis and ureter demonstrate mild surrounding inflammation, similar to previous. Probable mild chronic cystitis as well. Most of the colon has been resected. There is a small bowel to distal sigmoid colon anastomosis. No acute inflammatory changes are seen involving the bowel. --Repeat CT on 04/10/2023 suggestive of left-sided hydronephrosis, findings suggestive pyelonephritis. Also noted thick-walled left upper pole kidney cyst. --S/P cystoscopy, left retrograde pyelogram, left stent placed on 04/10/[address] Adam -- Urine culture: Negative --Repeat urine culture: Negative --Kidney aspirate: yeast- - Ruben glabrata complex --Continue IV cefepime IV Daptomycin discontinued Appreciate Urology Input Continue Purvis catheter Received a dose of fluconazole Follow-up final culture Needs follow-up with urology upon discharge PT OT eval--pending Consulted ID for further recommendations - Discussed w/ ID Ruben glabrata and w/ pharmacy - started treatment w/ amphotericin (04/13/23) for now. Asked lab for sensitivities - sensitivities pending Discussed again w/ ID (04/14/23) - continue w/ amphotericin for now and cont. w/ cefepime and Daptomycin (dapto restarted) PERRI on CKD stage IV Non-anion gap metabolic acidosis Creatinine 3.2>>2.4>1.9 > 2.2 >2 Received IV fluids Avoid nephrotoxic agents as able Monitor renal function Hypokalemia Replete electrolytes as needed Chronic diastolic heart failure Chronic respiratory failure/OHS/COPD/bronchiectasis as per records No signs of acute exacerbation -ECHO: EF 65 to 70%. Mild concentric LVH. 1 diastolic dysfunction. Mild tricuspid regurgitation. Estimated systolic pulmonary pressure 51 mm of Hg Continue home medications Monitor volume HTN BP low on metoprolol IV fluids as needed Monitor BP Pt was started on midodrine during this admission - continue to closely monitor Hyperlipidemia Hold Lipitor while on daptomycin DM II Hold p.o. meds Continue insulin while hospitalized Monitor BGs Chronic anemia Hb at baseline H/O Colon cancer S/P surgery Anxiety/mood disorder Continue home medication DVT Px: Heparin SQ Code Status DNR/DNI Disposition To be determined PT OT prior to discharge Admission and Anticipated Discharge Date Admission Date: April 07, 2023 Subjective Patient seen in follow up of UTI Reports nausea intermittently Flank/groin pain improved Denies any chest pain or dyspnea but feels weaker and reports R lower abd. discomfort and poor appetite Discussed w/ ID and pharmacy yesterday - ucultx posit. for ruben glabrata - started treatment (for now w/ amphotericin). Lab also called to obtain sensitivities Patient's updated over the phone yesterday. Review of Systems Review of Systems: All systems reviewed & are unremarkable except as noted in Subjective Physical Exam Physical Exam: General Appearance: Obese F in NAD Head: normocephalic, Atraumatic Eyes: normal inspection, EOMI Neck: supple Respiratory/Chest: Normal breath sounds, CTA, No accessory muscle use Cardiovascular: S1, S2, No murmur Abdomen/GI:Soft, Mild L flank tender, Bowel sounds present Extremities/Musculoskeletal:normal inspection, + edema Neurologic/Psych:AAOX3, grossly no focal neurological deficits Skin: normal color, warm Results & Data Results & Data Vital Signs (Past 12 Hours) Vital Signs Temp Pulse Pulse Resp BP Pulse Ox O2 Del Method 04/15/23 03:02 37.0 C 75 18 100/61 97 Nasal Cannula 04/14/23 22:53 82 04/14/23 23:01 36.7 C 98 H 18 92/59 L 100 Nasal Cannula 04/14/23 22:52 Nasal Cannula 04/14/23 19:39 36.6 C 93 H 18 105/73 98 Nasal Cannula O2 Flow Rate 04/15/23 03:02 2 04/14/23 22:53 04/14/23 23:01 2 04/14/23 22:52 2 04/14/23 19:39 2 Laboratory Results 04/16/23 04/16/23 04/16/23 Range/Units 07:43 06:44 06:44 WBC 9.13 (4.8-10.8) K/ul RBC 2.69 L (4.20-5.40) M/uL Hgb 8.2 L (12.0-16.0) g/dl Hct 27.0 L (37.0-47.0) % MCV 100.4 H (80.0-100.0) fL MCH 30.5 (25.0-34.0) pg MCHC 30.4 L (32.0-36.0) g/dL RDW Std Deviation 55.2 H (36.4-46.3) fL RDW Coeff of Teresa 14.9 H (11.5-14.5) % Plt Count 121 L (130-400) K/uL MPV 11.4 (9.4-12.4) fL Platelet Estimate Decreased L (Normal) Sodium 138 (136-145) mmol/L Potassium 4.2 (3.5-5.1) mmol/L Chloride 111 H (98-107) mmol/L Carbon Dioxide 22 (21-32) mmol/L Anion Gap 5 (3-11) BUN 19 (6-23) mg/dl Creatinine 1.89 H (0.6-1.2) mg/dl Est Cr Clr Drug Dosing 27.0 ml/min Est GFR ( Amer) 30.8 ml/min Est GFR (Non-Af Amer) 26.6 ml/min BUN/Creatinine Ratio 10.1 (10-20) Glucose 106 H (70-99(Fasting)) mg/dl POC Glucose 110 H (70-99) mg/dl Calcium 8.5 L (8.6-10.3) mg/dl Magnesium 2.0 (1.7-2.4) mg/dl 04/15/23 04/15/23 04/15/23 Range/Units 20:07 16:38 11:38 WBC (4.8-10.8) K/ul RBC (4.20-5.40) M/uL Hgb (12.0-16.0) g/dl Hct (37.0-47.0) % MCV (80.0-100.0) fL MCH (25.0-34.0) pg MCHC (32.0-36.0) g/dL RDW Std Deviation (36.4-46.3) fL RDW Coeff of Teresa (11.5-14.5) % Plt Count (130-400) K/uL MPV (9.4-12.4) fL Platelet Estimate (Normal) Sodium (136-145) mmol/L Potassium (3.5-5.1) mmol/L Chloride (98-107) mmol/L Carbon Dioxide (21-32) mmol/L Anion Gap (3-11) BUN (6-23) mg/dl Creatinine (0.6-1.2) mg/dl Est Cr Clr Drug Dosing ml/min Est GFR ( Amer) ml/min Est GFR (Non-Af Amer) ml/min BUN/Creatinine Ratio (10-20) Glucose (70-99(Fasting)) mg/dl POC Glucose 150 H 97 105 H (70-99) mg/dl Calcium (8.6-10.3) mg/dl Magnesium (1.7-2.4) mg/dl Medications Administered Current Inpatient Medications Acetaminophen (Acetaminophen 325 Mg Tab) 650 mg PO Q6H PRN PRN Reason: Fever/Pain Stop: 05/07/23 00:53 Last Admin: 04/10/23 05:53 Dose: 650 mg Amphotericin B (Amphotericin B Consult Active For Iv Formulations) 1 each N/A UD PRN PRN Reason: Consult Stop: 05/13/23 16:59 Dextrose (Dextrose 50% 50 Ml Syringe) 25 - 50 ml IV UD PRN; Protocol PRN Reason: Hypoglycemia Protocol Stop: 05/07/23 01:31 Diphenhydramine HCl (Diphenhydramine Hcl 25 Mg/10 Ml Udc) 25 mg PO Q6H PRN PRN Reason: Itching Stop: 05/11/23 11:01 Last Admin: 04/13/23 17:18 Dose: 25 mg Ferrous Gluconate (Ferrous Gluconate 324 Mg Tab) 324 mg PO QAM [facility] Stop: 05/07/23 08:59 Last Admin: 04/14/23 09:51 Dose: 324 mg Folic Acid (Folic Acid 1 Mg Tab) 1 mg PO QAM [facility] Stop: 05/07/23 08:59 Last Admin: 04/14/23 09:53 Dose: 1 mg Glucagon (Glucagon For Inj 1 Mg Vial) 1 mg SQ UD PRN; Protocol PRN Reason: Hypoglycemia Protocol Stop: 05/07/23 01:31 Glucose (Glucose 40% Gel 15 Gm Tube) 15 - 30 gm PO UD PRN; Protocol PRN Reason: Hypoglycemia Protocol Stop: 05/07/23 01:31 Glucose (Glucose 10 Tab/Tube) 4 - 8 tab PO UD PRN; Protocol PRN Reason: Hypoglycemia Treatment Stop: 05/07/23 01:31 Heparin Sodium (Porcine) (Heparin Sod 5,000 Unit/0.5 Ml Vial) 5,000 units SQ Q12 [facility] Stop: 05/10/23 20:59 Last Admin: 04/14/23 20:37 Dose: 5,000 units Hydroxyzine HCl (Hydroxyzine Hcl 10 Mg Tab) 10 mg PO HS [facility] Stop: 05/07/23 20:59 Last Admin: 04/13/23 20:33 Dose: 10 mg Amphotericin B 50 mg/ Dextrose 500 mls @ 82 mls/hr IV Q24H [facility] Stop: 04/23/23 17:59 Last Infusion: 04/15/23 01:59 Dose: Infused Cefepime HCl 1,000 mg/ Syringe 10 mls @ 5 mls/min IV Q12H [facility]; Protocol Stop: 04/24/23 00:59 Last Admin: 04/15/23 00:24 Dose: 5 mls/min Daptomycin 375 mg/ Syringe 7.5 mls @ 3.75 mls/min IV Q48H [facility]; Protocol Stop: 04/24/23 17:59 Last Admin: 04/14/23 19:34 Dose: 3.75 mls/min Insulin Aspart (Insulin Aspart Per Unit Charge) 0 units SC ACHS [facility] Stop: 05/07/23 01:31 Last Admin: 04/14/23 20:27 Dose: Not Given Metoprolol Succinate (Metoprolol Succ 25mg Ext Rel Tab) 25 mg PO QAM [facility] Stop: 05/07/23 08:59 Last Admin: 04/14/23 09:51 Dose: Not Given Midodrine (Midodrine Hcl 2.5 Mg Tab) 5 mg PO TID@0800,1200,1700 [facility] Stop: 05/14/23 11:59 Last Admin: 04/14/23 17:57 Dose: 5 mg Miscellaneous (Carbohydrates For Hypoglycemia ) 15 - 30 gm PO UD PRN PRN Reason: Hypoglycemia Protocol Stop: 05/07/23 01:31 Nystatin (Nystatin Powder 15gm Btl) 1 appln EXT PRN PRN PRN Reason: Affected Skin Folds Stop: 05/13/23 17:39 Ondansetron HCl (Ondansetron Inj 2 Mg/Ml 2 Ml Vial) 4 mg IV Q6H PRN PRN Reason: Nausea And Vomiting Stop: 05/11/23 15:48 Last Admin: 04/14/23 20:38 Dose: 4 mg Oxcarbazepine (Oxcarbazepine 150 Mg Tablet) 300 mg PO BID [facility] Stop: 05/07/23 08:59 Last Admin: 04/14/23 20:38 Dose: 300 mg Oxybutynin Chloride (Oxybutynin Chloride Xl 5 Mg Tabcr) 5 mg PO QAM [facility] Stop: 05/07/23 08:59 Last Admin: 04/14/23 09:50 Dose: 5 mg Oxycodone HCl (Oxycodone Hcl Ir 5 Mg Tab (Immediate Release)) 5 mg PO Q4H PRN PRN Reason: Pain Stop: 04/21/23 00:47 Last Admin: 04/13/23 20:02 Dose: 5 mg Pantoprazole Sodium (Pantoprazole 40 Mg Tab) 40 mg PO BID [facility] Stop: 05/07/23 08:59 Last Admin: 04/14/23 20:38 Dose: 40 mg Phenazopyridine HCl (Phenazopyridine Hcl 200 Mg Tab) 200 mg PO TID PRN PRN Reason: Dysuria Stop: 05/10/23 11:13 Last Admin: 04/14/23 09:51 Dose: 200 mg
[2023-04-15 07:37] LABS: Hematocrit (blood only) 23.9 % (37.0-47.0); Hemoglobin 7.1 g/dl (12.0-16.0); Mean Corpuscular Hemoglobin 30.9 pg (25.0-34.0); Mean Corpuscular Hgb Conc 29.7 g/dL (32.0-36.0); Mean Corpuscular Volume 103.9 fL (80.0-100.0); Mean Platelet Volume 10.9 fL (9.4-12.4); Platelet Count 112 K/uL (130-400); RDW Coefficient of Variation 15.5 % (11.5-14.5); RDW Standard Deviation 59.4 fL (36.4-46.3); White Blood Count 8.77 K/ul (4.8-10.8)
[2023-04-15 07:58] LABS: BUN Creatinine Ratio 8.7 (10-20); Calcium 8.1 mg/dl (8.6-10.3); Creatinine Clr Calc Pharmacy 24.8 ml/min; Est GFR (African American) 27.8 ml/min; Potassium 4.1 mmol/L (3.5-5.1)
[2023-04-15] MEDS: FERROUS GLUCONATE 324 MG TAB PO SCH (09:03)
[2023-04-15] MEDS: INSULIN ASPART PER UNIT CHARGE SC SCH ×4 (09:03→20:13)
[2023-04-15] MEDS: MIDODRINE HCL 2.5 MG TAB PO SCH ×3 (09:03→17:51)
[2023-04-15] MEDS: FOLIC ACID 1 MG TAB PO SCH (09:03)
[2023-04-15] MEDS: METOPROLOL SUCC 25MG EXT REL TAB PO SCH (09:03)
[2023-04-15] MEDS: PANTOprazole 40 MG TAB PO SCH ×2 (09:03→20:17)
[2023-04-15] MEDS: OXYBUTYNIN CHLORIDE XL 5 MG TABCR PO SCH (09:03)
[2023-04-15] MEDS: OXcarbazepine 150 MG TABLET PO SCH ×2 (09:03→20:17)
[2023-04-15] MEDS: HEPARIN SOD 5,000 UNIT/0.5 ML VIAL SQ SCH ×2 (09:03→20:15)
[2023-04-15] MEDS: ONDANSETRON INJ 2 MG/ML 2 ML VIAL IV PRN (09:07)
[2023-04-15] MEDS ORDERED: oxyCODONE HCL IR 5 MG TAB (IMMEDIATE RELEASE) PO STA (12:51)
[2023-04-15] MEDS: ADVANCED PROBIOTIC 1250 MG CAPSULE PO SCH (13:13)
[2023-04-15] MEDS: [UNRECOGNIZED DRUG - OTHER] IV SCH (18:34)
[2023-04-15] MEDS: DEXTROSE 5% IV SCH (18:34)
[2023-04-16] MEDS: CEFEPIME 1,000 MG in SYRINGE 0 ML IV SCH ×2 (00:45→13:44)
[2023-04-16 07:29] LABS: BUN Creatinine Ratio 10.1 (10-20); Calcium 8.5 mg/dl (8.6-10.3); Est GFR (African American) 30.8 ml/min; Est GFR (Non-African American) 26.6 ml/min; Potassium 4.2 mmol/L (3.5-5.1)
[2023-04-16 07:47] LABS: Hemoglobin 8.2 g/dl (12.0-16.0); Mean Corpuscular Hemoglobin 30.5 pg (25.0-34.0); Mean Corpuscular Hgb Conc 30.4 g/dL (32.0-36.0); Mean Corpuscular Volume 100.4 fL (80.0-100.0); Mean Platelet Volume 11.4 fL (9.4-12.4); Platelet Count 121 K/uL (130-400); Platelet Estimate Decreased (Normal); RDW Coefficient of Variation 14.9 % (11.5-14.5); RDW Standard Deviation 55.2 fL (36.4-46.3); Red Blood Count 2.69 M/uL (4.20-5.40); White Blood Count 9.13 K/ul (4.8-10.8)
[2023-04-16] MEDS: MIDODRINE HCL 2.5 MG TAB PO SCH ×3 (08:34→17:46)
[2023-04-16] MEDS: PHENAZOPYRIDINE HCL 200 MG TAB PO PRN (08:34)
[2023-04-16] MEDS: METOPROLOL SUCC 25MG EXT REL TAB PO SCH (08:35)
[2023-04-16] MEDS: PANTOprazole 40 MG TAB PO SCH ×2 (08:35→20:42)
[2023-04-16] MEDS: FERROUS GLUCONATE 324 MG TAB PO SCH (08:35)
[2023-04-16] MEDS: OXcarbazepine 150 MG TABLET PO SCH ×2 (08:35→20:42)
[2023-04-16] MEDS: FOLIC ACID 1 MG TAB PO SCH (08:37)
[2023-04-16] MEDS: HEPARIN SOD 5,000 UNIT/0.5 ML VIAL SQ SCH ×2 (08:37→20:42)
[2023-04-16] MEDS: OXYBUTYNIN CHLORIDE XL 5 MG TABCR PO SCH (08:37)
[2023-04-16] MEDS: ADVANCED PROBIOTIC 1250 MG CAPSULE PO SCH (08:37)
--- NOTE | 2023-04-16 10:14 | Hospitalist Progress Note ---
Date of Service April 16, 2023 Assessment & Plan (1) Complicated UTI (urinary tract infection): Plan: Complicated UTI Left hydroureteronephrosis H/O intolerance to stent placement in the past H/O VRE --CT ABD:The right kidney appears within normal limits. The left kidney is atrophic with chronic distention of the renal pelvis and ureter demonstrate mild surrounding inflammation, similar to previous. Probable mild chronic cystitis as well. Most of the colon has been resected. There is a small bowel to distal sigmoid colon anastomosis. No acute inflammatory changes are seen involving the bowel. --Repeat CT on 04/10/2023 suggestive of left-sided hydronephrosis, findings suggestive pyelonephritis. Also noted thick-walled left upper pole kidney cyst. --S/P cystoscopy, left retrograde pyelogram, left stent placed on 04/10/[address] Adam -- Urine culture: Negative --Repeat urine culture: Negative --Kidney aspirate: yeast- - Ruben glabrata complex --Continue IV cefepime, Daptomycin discontinued Appreciate Urology Input Continue Purvis catheter Received a dose of fluconazole Follow-up final culture Needs follow-up with urology upon discharge PT OT chadd Consulted ID for further recommendations - Discussed w/ ID Ruben glabrata and w/ pharmacy - started treatment w/ amphotericin (04/13/23) for now. Asked lab for sensitivities - sensitivities pending Discussed again w/ ID (04/14/23) - continue w/ amphotericin for now and cont. w/ cefepime and Daptomycin (dapto restarted) PERRI on CKD stage IV Non-anion gap metabolic acidosis Creatinine 3.2>>2.4>1.9 > 2.2 >2 >1.9 Received IV fluids Avoid nephrotoxic agents as able Monitor renal function Hypokalemia Replete electrolytes as needed Chronic diastolic heart failure Chronic respiratory failure/OHS/COPD/bronchiectasis as per records No signs of acute exacerbation -ECHO: EF 65 to 70%. Mild concentric LVH. 1 diastolic dysfunction. Mild tricuspid regurgitation. Estimated systolic pulmonary pressure 51 mm of Hg Continue home medications Monitor volume HTN BP low on metoprolol IV fluids as needed Monitor BP Pt was started on midodrine during this admission - continue to closely monitor Hyperlipidemia Hold Lipitor while on daptomycin DM II Hold p.o. meds Continue insulin while hospitalized Monitor BGs Chronic anemia Hb at baseline H/O Colon cancer S/P surgery Anxiety/mood disorder Continue home medication DVT Px: Heparin SQ Code Status DNR/DNI Disposition To be determined PT OT prior to discharge Admission and Anticipated Discharge Date Admission Date: April 07, 2023 Subjective Patient seen in follow up of UTI Reports nausea intermittently - somewhat worse since starting amphotericin? Left Flank/groin pain improved/ resolved - she continues to have some R lower abd. discomfort Denies any chest pain or dyspnea. No fever, chills. Discussed w/ ID and pharmacy yesterday - ucultx posit. for ruben glabrata - started treatment (for now w/ amphotericin). Lab also called to obtain sensitivities - which are pending Review of Systems Review of Systems: All systems reviewed & are unremarkable except as noted in Subjective Physical Exam Physical Exam: General Appearance: Obese F in NAD Head: normocephalic, Atraumatic Eyes: normal inspection, EOMI Neck: supple Respiratory/Chest: Normal breath sounds, CTA, No accessory muscle use Cardiovascular: S1, S2, No murmur Abdomen/GI:Soft, Bowel sounds present, obese abdomen, mild tenderness at R lower avd. Extremities/Musculoskeletal:normal inspection, + mild LE edema Neurologic/Psych:AAOX3, grossly no focal neurological deficits Skin: normal color, warm Results & Data Results & Data Vital Signs (Past 12 Hours) Vital Signs Temp Pulse Pulse Resp BP BP Pulse Ox 04/16/23 08:35 36.7 C 78 17 103/67 98 04/16/23 07:41 62 04/16/23 03:15 36.8 C 90 20 113/70 99 04/15/23 23:47 36.5 C 86 20 98/63 L 100 O2 Del Method O2 Flow Rate 04/16/23 08:35 Nasal Cannula 2 04/16/23 07:41 04/16/23 03:15 Nasal Cannula 2 04/15/23 23:47 Nasal Cannula 2 Laboratory Results 04/16/23 04/16/23 04/16/23 Range/Units 07:43 06:44 06:44 WBC 9.13 (4.8-10.8) K/ul RBC 2.69 L (4.20-5.40) M/uL Hgb 8.2 L (12.0-16.0) g/dl Hct 27.0 L (37.0-47.0) % MCV 100.4 H (80.0-100.0) fL MCH 30.5 (25.0-34.0) pg MCHC 30.4 L (32.0-36.0) g/dL RDW Std Deviation 55.2 H (36.4-46.3) fL RDW Coeff of Teresa 14.9 H (11.5-14.5) % Plt Count 121 L (130-400) K/uL MPV 11.4 (9.4-12.4) fL Platelet Estimate Decreased L (Normal) Sodium 138 (136-145) mmol/L Potassium 4.2 (3.5-5.1) mmol/L Chloride 111 H (98-107) mmol/L Carbon Dioxide 22 (21-32) mmol/L Anion Gap 5 (3-11) BUN 19 (6-23) mg/dl Creatinine 1.89 H (0.6-1.2) mg/dl Est Cr Clr Drug Dosing 27.0 ml/min Est GFR ( Amer) 30.8 ml/min Est GFR (Non-Af Amer) 26.6 ml/min BUN/Creatinine Ratio 10.1 (10-20) Glucose 106 H (70-99(Fasting)) mg/dl POC Glucose 110 H (70-99) mg/dl Calcium 8.5 L (8.6-10.3) mg/dl Magnesium 2.0 (1.7-2.4) mg/dl 04/15/23 04/15/23 04/15/23 Range/Units 20:07 16:38 11:38 WBC (4.8-10.8) K/ul RBC (4.20-5.40) M/uL Hgb (12.0-16.0) g/dl Hct (37.0-47.0) % MCV (80.0-100.0) fL MCH (25.0-34.0) pg MCHC (32.0-36.0) g/dL RDW Std Deviation (36.4-46.3) fL RDW Coeff of Teresa (11.5-14.5) % Plt Count (130-400) K/uL MPV (9.4-12.4) fL Platelet Estimate (Normal) Sodium (136-145) mmol/L Potassium (3.5-5.1) mmol/L Chloride (98-107) mmol/L Carbon Dioxide (21-32) mmol/L Anion Gap (3-11) BUN (6-23) mg/dl Creatinine (0.6-1.2) mg/dl Est Cr Clr Drug Dosing ml/min Est GFR ( Amer) ml/min Est GFR (Non-Af Amer) ml/min BUN/Creatinine Ratio (10-20) Glucose (70-99(Fasting)) mg/dl POC Glucose 150 H 97 105 H (70-99) mg/dl Calcium (8.6-10.3) mg/dl Magnesium (1.7-2.4) mg/dl Medications Administered Current Inpatient Medications Acetaminophen (Acetaminophen 325 Mg Tab) 650 mg PO Q6H PRN PRN Reason: Fever/Pain Stop: 05/07/23 00:53 Last Admin: 04/10/23 05:53 Dose: 650 mg Amphotericin B (Amphotericin B Consult Active For Iv Formulations) 1 each N/A UD PRN PRN Reason: Consult Stop: 05/13/23 16:59 Dextrose (Dextrose 50% 50 Ml Syringe) 25 - 50 ml IV UD PRN; Protocol PRN Reason: Hypoglycemia Protocol Stop: 05/07/23 01:31 Diphenhydramine HCl (Diphenhydramine Hcl 25 Mg/10 Ml Udc) 25 mg PO Q6H PRN PRN Reason: Itching Stop: 05/11/23 11:01 Last Admin: 04/13/23 17:18 Dose: 25 mg Ferrous Gluconate (Ferrous Gluconate 324 Mg Tab) 324 mg PO QAM [facility] Stop: 05/07/23 08:59 Last Admin: 04/16/23 08:35 Dose: 324 mg Folic Acid (Folic Acid 1 Mg Tab) 1 mg PO QAM [facility] Stop: 05/07/23 08:59 Last Admin: 04/16/23 08:37 Dose: 1 mg Glucagon (Glucagon For Inj 1 Mg Vial) 1 mg SQ UD PRN; Protocol PRN Reason: Hypoglycemia Protocol Stop: 05/07/23 01:31 Glucose (Glucose 40% Gel 15 Gm Tube) 15 - 30 gm PO UD PRN; Protocol PRN Reason: Hypoglycemia Protocol Stop: 05/07/23 01:31 Glucose (Glucose 10 Tab/Tube) 4 - 8 tab PO UD PRN; Protocol PRN Reason: Hypoglycemia Treatment Stop: 05/07/23 01:31 Heparin Sodium (Porcine) (Heparin Sod 5,000 Unit/0.5 Ml Vial) 5,000 units SQ Q12 [facility] Stop: 05/10/23 20:59 Last Admin: 04/16/23 08:37 Dose: 5,000 units Hydroxyzine HCl (Hydroxyzine Hcl 10 Mg Tab) 10 mg PO HS [facility] Stop: 05/07/23 20:59 Last Admin: 04/13/23 20:33 Dose: 10 mg Amphotericin B 50 mg/ Dextrose 500 mls @ 82 mls/hr IV Q24H [facility] Stop: 04/23/23 17:59 Last Infusion: 04/16/23 00:51 Dose: Infused Cefepime HCl 1,000 mg/ Syringe 10 mls @ 5 mls/min IV Q12H [facility]; Protocol Stop: 04/24/23 00:59 Last Admin: 04/16/23 00:45 Dose: 5 mls/min Daptomycin 375 mg/ Syringe 7.5 mls @ 3.75 mls/min IV Q48H [facility]; Protocol Stop: 04/24/23 17:59 Last Admin: 04/14/23 19:34 Dose: 3.75 mls/min Insulin Aspart (Insulin Aspart Per Unit Charge) 0 units SC ACHS [facility] Stop: 05/07/23 01:31 Last Admin: 04/15/23 20:13 Dose: 1 units Lactobacillus Acidophilus (Advanced Probiotic 1250 Mg Capsule) 2 cap PO DAILY [facility] Stop: 05/15/23 12:59 Last Admin: 04/16/23 08:37 Dose: 2 cap Metoprolol Succinate (Metoprolol Succ 25mg Ext Rel Tab) 25 mg PO QAM [facility] Stop: 05/07/23 08:59 Last Admin: 04/16/23 08:35 Dose: 25 mg Midodrine (Midodrine Hcl 2.5 Mg Tab) 5 mg PO TID@0800,1200,1700 [facility] Stop: 05/14/23 11:59 Last Admin: 04/16/23 08:34 Dose: 5 mg Miscellaneous (Carbohydrates For Hypoglycemia ) 15 - 30 gm PO UD PRN PRN Reason: Hypoglycemia Protocol Stop: 05/07/23 01:31 Nystatin (Nystatin Powder 15gm Btl) 1 appln EXT PRN PRN PRN Reason: Affected Skin Folds Stop: 05/13/23 17:39 Ondansetron HCl (Ondansetron Inj 2 Mg/Ml 2 Ml Vial) 4 mg IV Q6H PRN PRN Reason: Nausea And Vomiting Stop: 05/11/23 15:48 Last Admin: 04/15/23 09:07 Dose: 4 mg Oxcarbazepine (Oxcarbazepine 150 Mg Tablet) 300 mg PO BID [facility] Stop: 05/07/23 08:59 Last Admin: 04/16/23 08:35 Dose: 300 mg Oxybutynin Chloride (Oxybutynin Chloride Xl 5 Mg Tabcr) 5 mg PO QAM [facility] Stop: 05/07/23 08:59 Last Admin: 04/16/23 08:37 Dose: 5 mg Oxycodone HCl (Oxycodone Hcl Ir 5 Mg Tab (Immediate Release)) 5 mg PO Q4H PRN PRN Reason: Pain Stop: 04/21/23 00:47 Last Admin: 04/13/23 20:02 Dose: 5 mg Pantoprazole Sodium (Pantoprazole 40 Mg Tab) 40 mg PO BID [facility] Stop: 05/07/23 08:59 Last Admin: 04/16/23 08:35 Dose: 40 mg Phenazopyridine HCl (Phenazopyridine Hcl 200 Mg Tab) 200 mg PO TID PRN PRN Reason: Dysuria Stop: 05/10/23 11:13 Last Admin: 04/16/23 08:34 Dose: 200 mg
[2023-04-16] MEDS: INSULIN ASPART PER UNIT CHARGE SC SCH ×4 (10:23→21:33)
[2023-04-16] MEDS: ONDANSETRON INJ 2 MG/ML 2 ML VIAL IV PRN (11:40)
--- NOTE | 2023-04-16 16:04 | XRay Report ---
KUB HISTORY: Acute right-sided abdominal pain R lower abd. pain COMPARISON: 04/13/2023 FINDINGS: Surgical clips of the abdominal right upper quadrant. Nonobstructive bowel gas pattern. Lef t ureteral stent. Small nonobstructing bilateral renal calculi again noted measuring up to 4 mm. No definite ureteral calculi identified. No pneumoperitoneum or pneumatosis. No fracture. IMPRESSION: 1. Nonobstructive bowel gas pattern. 2. Left ureteral stent in place. No ureteral calculi identified. 3. Bilateral nephrolithiasis. ACT 112: Negative or not required by law. The above report was generated using voice recognition software. It may contain grammatical, syntax o r spelling errors. Electronically signed by: Lang Calderon M.D. 04/16/2023 4:03 PM
[2023-04-16] MEDS: DAPTOmycin 375 MG in SYRINGE 0 ML IV SCH (17:45)
[2023-04-16] MEDS: [UNRECOGNIZED DRUG - OTHER] IV SCH (19:43)
[2023-04-16] MEDS: DEXTROSE 5% IV SCH (19:43)
[2023-04-17] MEDS: CEFEPIME 1,000 MG in SYRINGE 0 ML IV SCH ×2 (01:50→14:07)
[2023-04-17 06:46] LABS: Hematocrit (blood only) 23.4 % (37.0-47.0); Hemoglobin 7.1 g/dl (12.0-16.0); Mean Corpuscular Hemoglobin 30.7 pg (25.0-34.0); Mean Corpuscular Hgb Conc 30.3 g/dL (32.0-36.0); Mean Corpuscular Volume 101.3 fL (80.0-100.0); Mean Platelet Volume 10.7 fL (9.4-12.4); Platelet Count 111 K/uL (130-400); RDW Coefficient of Variation 14.6 % (11.5-14.5); RDW Standard Deviation 54.8 fL (36.4-46.3); Red Blood Count 2.31 M/uL (4.20-5.40); White Blood Count 7.14 K/ul (4.8-10.8)
[2023-04-17 07:13] LABS: BUN Creatinine Ratio 10.4 (10-20); Calcium 8.3 mg/dl (8.6-10.3); Est GFR (African American) 32.3 ml/min; Est GFR (Non-African American) 27.8 ml/min; Magnesium 1.9 mg/dl (1.7-2.4); Phosphorus 2.6 mg/dl (2.5-4.9); Potassium 3.9 mmol/L (3.5-5.1)
[2023-04-17] MEDS ORDERED: oxyCODONE HCL IR 5 MG TAB (IMMEDIATE RELEASE) PO STA (07:38)
[2023-04-17] MEDS: ACETAMINOPHEN 325 MG TAB PO PRN (07:50)
[2023-04-17] MEDS: MIDODRINE HCL 2.5 MG TAB PO SCH ×3 (07:52→16:41)
[2023-04-17] MEDS: PANTOprazole 40 MG TAB PO SCH ×2 (07:53→21:31)
[2023-04-17] MEDS: PHENAZOPYRIDINE HCL 200 MG TAB PO PRN ×2 (07:53→21:32)
[2023-04-17] MEDS: OXYBUTYNIN CHLORIDE XL 5 MG TABCR PO SCH (07:53)
[2023-04-17] MEDS: HEPARIN SOD 5,000 UNIT/0.5 ML VIAL SQ SCH ×2 (07:54→21:29)
[2023-04-17] MEDS: OXcarbazepine 150 MG TABLET PO SCH ×2 (07:54→21:31)
[2023-04-17] MEDS: FERROUS GLUCONATE 324 MG TAB PO SCH (07:54)
[2023-04-17] MEDS: FOLIC ACID 1 MG TAB PO SCH (08:41)
[2023-04-17] MEDS: ONDANSETRON INJ 2 MG/ML 2 ML VIAL IV PRN (08:51)
[2023-04-17] MEDS: ADVANCED PROBIOTIC 1250 MG CAPSULE PO SCH (08:51)
[2023-04-17] MEDS: INSULIN ASPART PER UNIT CHARGE SC SCH ×4 (09:00→22:06)
[2023-04-17] MEDS ORDERED: SODIUM CHLORIDE 0.9% 1000ML 500 ML IV ONE (09:25)
--- NOTE | 2023-04-17 10:18 | Ultrasound Report ---
RENAL ULTRASOUND HISTORY: Acute mid pelvic pain cont. suprapubic pain, s/p urol. stent COMPARISON: CT abdomen and pelvis 04/13/2023 FINDINGS: Right kidney: 11.1 cm. 0.9 cm cyst of the inferior pole. Previously noted 4 linear calcification righ t kidney is not identified. No hydronephrosis. Normal corticomedullary differentiation and cortical t hickness. Left kidney: 7.6 cm. Cyst in the upper pole redemonstrated measuring up to 5.6 cm. Several calculi wi thin the inferior pole left kidney are again noted measuring up to 4 mm. Persistent left-sided hydron ephrosis with cortical thinning. Bladder: Urine bladder wall thickening with partial distention. Ureteral jets were not identified. IMPRESSION: 1. Atrophy with cortical thinning and hydronephrosis of the left kidney redemonstrated. 2. Left nephrolithiasis. ACT 112: Negative or not required by law. Electronically signed by: Lang Calderon M.D. 04/17/2023 10:16 AM
[2023-04-17] MEDS ORDERED: oxyCODONE HCL IR 5 MG TAB (IMMEDIATE RELEASE) PO PRN (10:29)
--- NOTE | 2023-04-17 10:35 | Hospitalist Progress Note ---
Date of Service April 17, 2023 Assessment & Plan (1) Complicated UTI (urinary tract infection): Plan: Complicated UTI Left hydroureteronephrosis H/O intolerance to stent placement in the past H/O VRE --CT ABD:The right kidney appears within normal limits. The left kidney is atrophic with chronic distention of the renal pelvis and ureter demonstrate mild surrounding inflammation, similar to previous. Probable mild chronic cystitis as well. Most of the colon has been resected. There is a small bowel to distal sigmoid colon anastomosis. No acute inflammatory changes are seen involving the bowel. --Repeat CT on 04/10/2023 suggestive of left-sided hydronephrosis, findings suggestive pyelonephritis. Also noted thick-walled left upper pole kidney cyst. --S/P cystoscopy, left retrograde pyelogram, left stent placed on 04/10/[address] Adam -- Urine culture: Negative --Repeat urine culture: Negative --Kidney aspirate: yeast- - Ruben glabrata complex --Continue IV cefepime, Daptomycin discontinued Appreciate Urology Input Continue Purvis catheter Received a dose of fluconazole Follow-up final culture Needs follow-up with urology upon discharge PT OT chadd Consulted ID for further recommendations - Discussed w/ ID Ruben glabrata and w/ pharmacy - started treatment w/ amphotericin (04/13/23) for now. Asked lab for sensitivities - sensitivities pending Discussed again w/ ID (04/14/23) - continue w/ amphotericin for now and cont. w/ cefepime and Daptomycin (dapto restarted) PERRI on CKD stage IV Non-anion gap metabolic acidosis Creatinine 3.2>>2.4>1.9 > 2.2 >2 >1.9 Received IV fluids Avoid nephrotoxic agents as able Monitor renal function Hypokalemia Replete electrolytes as needed Chronic diastolic heart failure Chronic respiratory failure/OHS/COPD/bronchiectasis as per records No signs of acute exacerbation -ECHO: EF 65 to 70%. Mild concentric LVH. 1 diastolic dysfunction. Mild tricuspid regurgitation. Estimated systolic pulmonary pressure 51 mm of Hg Continue home medications Monitor volume HTN BP low on metoprolol IV fluids as needed Monitor BP Pt was started on midodrine during this admission - continue to closely monitor Hyperlipidemia Hold Lipitor while on daptomycin DM II Hold p.o. meds Continue insulin while hospitalized Monitor BGs Chronic anemia Hb at baseline H/O Colon cancer S/P surgery Anxiety/mood disorder Continue home medication DVT Px: Heparin SQ Code Status DNR/DNI Disposition To be determined PT OT prior to discharge Admission and Anticipated Discharge Date Admission Date: April 07, 2023 Subjective Patient seen in follow up of UTI Reports nausea intermittently - somewhat worse since starting amphotericin? Left Flank/groin pain improved/ resolved - she continues to have some suprapubic pain Denies any chest pain or dyspnea. No fever, chills. Discussed w/ ID and pharmacy - ucultx posit. for ruben glabrata - started treatment (for now w/ amphotericin). Lab also called to obtain sensitivities - which are pending KUB and bladder/renal US obtained Review of Systems Review of Systems: All systems reviewed & are unremarkable except as noted in Subjective Physical Exam Physical Exam: General Appearance: Obese F in NAD Head: normocephalic, Atraumatic Eyes: normal inspection, EOMI Neck: supple Respiratory/Chest: Normal breath sounds, CTA, No accessory muscle use Cardiovascular: S1, S2, No murmur Abdomen/GI:Soft, Bowel sounds present, obese abdomen, mild tenderness at R lower avd. Extremities/Musculoskeletal:normal inspection, + mild LE edema Neurologic/Psych:AAOX3, grossly no focal neurological deficits Skin: normal color, warm Results & Data Results & Data Vital Signs (Past 12 Hours) Vital Signs Temp Pulse Pulse Resp BP BP Pulse Ox 04/17/23 09:13 04/17/23 08:30 37.1 C 86 18 110/61 95 04/17/23 07:36 63 04/17/23 04:50 36.7 C 96 H 20 102/64 97 04/16/23 23:47 36.8 C 102 H 20 132/76 93 O2 Del Method O2 Flow Rate 04/17/23 09:13 Room Air 2 04/17/23 08:30 Nasal Cannula 2 04/17/23 07:36 04/17/23 04:50 Nasal Cannula 2 04/16/23 23:47 Room Air Laboratory Results 04/17/23 04/17/23 04/16/23 Range/Units 06:15 06:15 20:20 WBC 7.14 (4.8-10.8) K/ul RBC 2.31 L (4.20-5.40) M/uL Hgb 7.1 L (12.0-16.0) g/dl Hct 23.4 L (37.0-47.0) % MCV 101.3 H (80.0-100.0) fL MCH 30.7 (25.0-34.0) pg MCHC 30.3 L (32.0-36.0) g/dL RDW Std Deviation 54.8 H (36.4-46.3) fL RDW Coeff of Teresa 14.6 H (11.5-14.5) % Plt Count 111 L (130-400) K/uL MPV 10.7 (9.4-12.4) fL Sodium 136 (136-145) mmol/L Potassium 3.9 (3.5-5.1) mmol/L Chloride 111 H (98-107) mmol/L Carbon Dioxide 21 (21-32) mmol/L Anion Gap 4 (3-11) BUN 19 (6-23) mg/dl Creatinine 1.82 H (0.6-1.2) mg/dl Est Cr Clr Drug Dosing 28.0 ml/min Est GFR ( Amer) 32.3 ml/min Est GFR (Non-Af Amer) 27.8 ml/min BUN/Creatinine Ratio 10.4 (10-20) Glucose 111 H (70-99(Fasting)) mg/dl POC Glucose 133 H (70-99) mg/dl Calcium 8.3 L (8.6-10.3) mg/dl Phosphorus 2.6 (2.5-4.9) mg/dl Magnesium 1.9 (1.7-2.4) mg/dl 04/16/23 04/16/23 Range/Units 16:44 11:35 WBC (4.8-10.8) K/ul RBC (4.20-5.40) M/uL Hgb (12.0-16.0) g/dl Hct (37.0-47.0) % MCV (80.0-100.0) fL MCH (25.0-34.0) pg MCHC (32.0-36.0) g/dL RDW Std Deviation (36.4-46.3) fL RDW Coeff of Teresa (11.5-14.5) % Plt Count (130-400) K/uL MPV (9.4-12.4) fL Sodium (136-145) mmol/L Potassium (3.5-5.1) mmol/L Chloride (98-107) mmol/L Carbon Dioxide (21-32) mmol/L Anion Gap (3-11) BUN (6-23) mg/dl Creatinine (0.6-1.2) mg/dl Est Cr Clr Drug Dosing ml/min Est GFR ( Amer) ml/min Est GFR (Non-Af Amer) ml/min BUN/Creatinine Ratio (10-20) Glucose (70-99(Fasting)) mg/dl POC Glucose 102 H 108 H (70-99) mg/dl Calcium (8.6-10.3) mg/dl Phosphorus (2.5-4.9) mg/dl Magnesium (1.7-2.4) mg/dl Medications Administered Current Inpatient Medications Acetaminophen (Acetaminophen 325 Mg Tab) 650 mg PO Q6H PRN PRN Reason: Fever/Pain Stop: 05/07/23 00:53 Last Admin: 04/17/23 07:50 Dose: 650 mg Amphotericin B (Amphotericin B Consult Active For Iv Formulations) 1 each N/A UD PRN PRN Reason: Consult Stop: 05/13/23 16:59 Dextrose (Dextrose 50% 50 Ml Syringe) 25 - 50 ml IV UD PRN; Protocol PRN Reason: Hypoglycemia Protocol Stop: 05/07/23 01:31 Diphenhydramine HCl (Diphenhydramine Hcl 25 Mg/10 Ml Udc) 25 mg PO Q6H PRN PRN Reason: Itching Stop: 05/11/23 11:01 Last Admin: 04/13/23 17:18 Dose: 25 mg Ferrous Gluconate (Ferrous Gluconate 324 Mg Tab) 324 mg PO QAM [facility] Stop: 05/07/23 08:59 Last Admin: 04/17/23 07:54 Dose: 324 mg Folic Acid (Folic Acid 1 Mg Tab) 1 mg PO QAM [facility] Stop: 05/07/23 08:59 Last Admin: 04/17/23 08:41 Dose: 1 mg Glucagon (Glucagon For Inj 1 Mg Vial) 1 mg SQ UD PRN; Protocol PRN Reason: Hypoglycemia Protocol Stop: 05/07/23 01:31 Glucose (Glucose 40% Gel 15 Gm Tube) 15 - 30 gm PO UD PRN; Protocol PRN Reason: Hypoglycemia Protocol Stop: 05/07/23 01:31 Glucose (Glucose 10 Tab/Tube) 4 - 8 tab PO UD PRN; Protocol PRN Reason: Hypoglycemia Treatment Stop: 05/07/23 01:31 Heparin Sodium (Porcine) (Heparin Sod 5,000 Unit/0.5 Ml Vial) 5,000 units SQ Q12 [facility] Stop: 05/10/23 20:59 Last Admin: 04/17/23 07:54 Dose: 5,000 units Hydroxyzine HCl (Hydroxyzine Hcl 10 Mg Tab) 10 mg PO HS [facility]LA Stop: 05/07/23 20:59 Last Admin: 04/13/23 20:33 Dose: 10 mg Amphotericin B 50 mg/ Dextrose 500 mls @ 82 mls/hr IV Q24H [facility] Stop: 04/23/23 17:59 Last Infusion: 04/17/23 02:05 Dose: Infused Cefepime HCl 1,000 mg/ Syringe 10 mls @ 5 mls/min IV Q12H [facility]; Protocol Stop: 04/24/23 00:59 Last Admin: 04/17/23 01:50 Dose: 5 mls/min Daptomycin 375 mg/ Syringe 7.5 mls @ 3.75 mls/min IV Q48H [facility]; Protocol Stop: 04/24/23 17:59 Last Admin: 04/16/23 17:45 Dose: 3.75 mls/min Sodium Chloride (Nss 1000ml) 500 mls @ 80 mls/hr IV .Q6H15M ONE Stop: 04/17/23 15:39 Insulin Aspart (Insulin Aspart Per Unit Charge) 0 units SC ACHS [facility] Stop: 05/07/23 01:31 Last Admin: 04/16/23 21:33 Dose: Not Given Lactobacillus Acidophilus (Advanced Probiotic 1250 Mg Capsule) 2 cap PO DAILY [facility] Stop: 05/15/23 12:59 Last Admin: 04/17/23 08:51 Dose: 2 cap Metoprolol Succinate (Metoprolol Succ 25mg Ext Rel Tab) 25 mg PO QAM [facility] Stop: 05/07/23 08:59 Last Admin: 04/16/23 08:35 Dose: 25 mg Midodrine (Midodrine Hcl 2.5 Mg Tab) 5 mg PO TID@0800,1200,1700 [facility] Stop: 05/14/23 11:59 Last Admin: 04/17/23 07:52 Dose: 5 mg Miscellaneous (Carbohydrates For Hypoglycemia ) 15 - 30 gm PO UD PRN PRN Reason: Hypoglycemia Protocol Stop: 05/07/23 01:31 Nystatin (Nystatin Powder 15gm Btl) 1 appln EXT PRN PRN PRN Reason: Affected Skin Folds Stop: 05/13/23 17:39 Ondansetron HCl (Ondansetron Inj 2 Mg/Ml 2 Ml Vial) 4 mg IV Q6H PRN PRN Reason: Nausea And Vomiting Stop: 05/11/23 15:48 Last Admin: 04/17/23 08:51 Dose: 4 mg Oxcarbazepine (Oxcarbazepine 150 Mg Tablet) 300 mg PO BID [facility] Stop: 05/07/23 08:59 Last Admin: 04/17/23 07:54 Dose: 300 mg Oxybutynin Chloride (Oxybutynin Chloride Xl 5 Mg Tabcr) 5 mg PO QAM [facility] Stop: 05/07/23 08:59 Last Admin: 04/17/23 07:53 Dose: 5 mg Oxycodone HCl (Oxycodone Hcl Ir 5 Mg Tab (Immediate Release)) 5 mg PO Q4H PRN PRN Reason: Pain Stop: 04/21/23 00:47 Last Admin: 04/13/23 20:02 Dose: 5 mg Oxycodone HCl (Oxycodone Hcl Ir 5 Mg Tab (Immediate Release)) 2.5 mg PO Q6H PRN PRN Reason: Pain Stop: 05/01/23 10:28 Pantoprazole Sodium (Pantoprazole 40 Mg Tab) 40 mg PO BID [facility] Stop: 05/07/23 08:59 Last Admin: 04/17/23 07:53 Dose: 40 mg Phenazopyridine HCl (Phenazopyridine Hcl 200 Mg Tab) 200 mg PO TID PRN PRN Reason: Dysuria Stop: 05/10/23 11:13 Last Admin: 04/17/23 07:53 Dose: 200 mg
[2023-04-17] MEDS: METOPROLOL SUCC 25MG EXT REL TAB PO SCH (11:00)
[2023-04-17] MEDS ORDERED: PROMETHAZINE HCL 6.25 MG in SODIUM CHLORIDE 0.9% 50 ML IV STA (12:05)
[2023-04-17] MEDS: [UNRECOGNIZED DRUG - OTHER] IV SCH (19:05)
[2023-04-17] MEDS: DEXTROSE 5% IV SCH (19:05)
[2023-04-18] MEDS: CEFEPIME 1,000 MG in SYRINGE 0 ML IV SCH ×2 (01:50→13:03)
[2023-04-18 06:34] LABS: Hematocrit (blood only) 22.4 % (37.0-47.0); Hemoglobin 6.7 g/dl (12.0-16.0); Mean Corpuscular Hemoglobin 30.5 pg (25.0-34.0); Mean Corpuscular Hgb Conc 29.9 g/dL (32.0-36.0); Mean Corpuscular Volume 101.8 fL (80.0-100.0); Mean Platelet Volume 10.9 fL (9.4-12.4); Platelet Count 126 K/uL (130-400); RDW Coefficient of Variation 14.2 % (11.5-14.5); RDW Standard Deviation 53.1 fL (36.4-46.3); White Blood Count 5.79 K/ul (4.8-10.8)
[2023-04-18 06:53] LABS: BUN Creatinine Ratio 10.3 (10-20); Calcium 8.3 mg/dl (8.6-10.3); Creatinine Clr Calc Pharmacy 25.1 ml/min; Est GFR (African American) 28.3 ml/min; Est GFR (Non-African American) 24.4 ml/min; Magnesium 1.9 mg/dl (1.7-2.4); Phosphorus 2.9 mg/dl (2.5-4.9); Potassium 3.7 mmol/L (3.5-5.1)
[2023-04-18 07:33] LABS: Hematocrit (blood only) 23.8 % (37.0-47.0); Hemoglobin 7.1 g/dl (12.0-16.0)
[2023-04-18] MEDS: INSULIN ASPART PER UNIT CHARGE SC SCH ×4 (07:52→20:05)
[2023-04-18] MEDS: MIDODRINE HCL 2.5 MG TAB PO SCH ×3 (07:53→17:13)
[2023-04-18] MEDS: OXcarbazepine 150 MG TABLET PO SCH ×2 (07:53→19:29)
[2023-04-18] MEDS: HEPARIN SOD 5,000 UNIT/0.5 ML VIAL SQ SCH ×2 (07:54→19:28)
[2023-04-18] MEDS: PANTOprazole 40 MG TAB PO SCH ×2 (07:55→19:28)
[2023-04-18] MEDS: FOLIC ACID 1 MG TAB PO SCH (07:55)
[2023-04-18] MEDS: FERROUS GLUCONATE 324 MG TAB PO SCH (07:55)
[2023-04-18] MEDS: ADVANCED PROBIOTIC 1250 MG CAPSULE PO SCH (07:56)
[2023-04-18] MEDS: METOPROLOL SUCC 25MG EXT REL TAB PO SCH (07:56)
[2023-04-18] MEDS: OXYBUTYNIN CHLORIDE XL 5 MG TABCR PO SCH (07:56)
[2023-04-18] MEDS: ONDANSETRON INJ 2 MG/ML 2 ML VIAL IV PRN (08:01)
--- NOTE | 2023-04-18 10:38 | Urology Progress Note ---
Date of Service April 18, 2023 Assessment & Plan (1) Complicated UTI (urinary tract infection): (2) Hydronephrosis: (3) PERRI (acute kidney injury): (4) Flank pain: Plan S/P cystoscopy, left retrograde pyelogram, left stent placement on 04/10/[address] Adam Urology asked to re-eval patient due to persistent suprapubic discomfort. Afebrile, BP running low 92/59 this morning. No leukocytosis, creatinine 2.03. Continue to trend. Urine culture from kidney aspirate 04/10 showing Erica glabrata, otherwise cultures have been negative. Continues on amphotericin, cefepime and Daptomycin. ID consulted. Voiding spontaneously, mostly incontinent. Bladder scanned for 0ml today. Continue to monitor. Patient requesting external purewick catheter. KUB 04/16 reviewed - left ureteral stent in place. Renal ultrasound 04/17 reviewed - Atrophy with cortical thinning and hydronephrosis of the left kidney redemonstrated, Left nephrolithiasis, Bladder wall thickening, No right sided hydronephrosis. Suprapubic discomfort could be due to stent discomfort/irritation. Continue stent management with PRN pyridium and oxybutynin. Bladder scan was low today so that is reassuring that she is emptying her bladder. Continue supportive care. Urology will follow peripherally. Plan reviewed with Dr. Adam. Admission and Anticipated Discharge Date Admission Date: April 07, 2023 Subjective Patient examined at bedside this AM. Awake, resting in bed on arrival. Still with nausea and poor appetite-currently receiving IV promethazine. Left flank pain has improved/resolved. Now with persistent lower abdominal/suprapubic pain. Voiding spontaneously, mostly incontinent. No fevers. Review of Systems Constitutional: as per Subjective / HPI Gastrointestinal: as per Subjective / HPI Genitourinary: as per Subjective / HPI Physical Exam Constitutional: + ill appearing; no acute distress Respiratory: no respiratory distress and no labored breathing Skin: No visible rashes or lesions to exposed skin areas Neurologic: awake Psychiatric: Orientation: alert and cooperative Results & Data Vital Signs (Past 12 Hours) Vital Signs Temp Pulse Pulse Pulse Resp BP Pulse Ox 04/18/23 08:38 04/18/23 07:44 36.6 C 83 16 92/59 L 96 04/18/23 07:14 72 04/18/23 06:45 36.7 C 78 18 91/60 L 97 04/18/23 04:59 36.9 C 86 20 111/65 98 04/18/23 00:01 37.0 C 78 20 131/70 96 O2 Del Method O2 Flow Rate 04/18/23 08:38 Nasal Cannula 2 04/18/23 07:44 Nasal Cannula 04/18/23 07:14 04/18/23 06:45 Nasal Cannula 2 04/18/23 04:59 Nasal Cannula 2 04/18/23 00:01 Nasal Cannula 2 PG Care Time/CCT Total # of Minutes Spent Total Time Spent with Patient: Total time spent is greater than 50% in coordination of care (as documented) at patient's floor/unit and/or counseling patient: Coding Level of Care Code 43889 SUB INP/OBS CARE MIN Diagnoses Complicated UTI (urinary tract infection) N39.0 Hydronephrosis N13.30 PERRI (acute kidney injury) N17.9 Flank pain R10.9
[2023-04-18] MEDS ORDERED: PROMETHAZINE HCL 6.25 MG in SODIUM CHLORIDE 0.9% 50 ML IV STA (11:23)
--- NOTE | 2023-04-18 13:00 | Hospitalist Progress Note ---
Date of Service April 18, 2023 Assessment & Plan (1) Complicated UTI (urinary tract infection): Plan: Complicated UTI Left hydroureteronephrosis H/O intolerance to stent placement in the past H/O VRE --CT ABD:The right kidney appears within normal limits. The left kidney is atrophic with chronic distention of the renal pelvis and ureter demonstrate mild surrounding inflammation, similar to previous. Probable mild chronic cystitis as well. Most of the colon has been resected. There is a small bowel to distal sigmoid colon anastomosis. No acute inflammatory changes are seen involving the bowel. --Repeat CT on 04/10/2023 suggestive of left-sided hydronephrosis, findings suggestive pyelonephritis. Also noted thick-walled left upper pole kidney cyst. --S/P cystoscopy, left retrograde pyelogram, left stent placed on 04/10/[address] Adam -- Urine culture: Negative --Repeat urine culture: Negative --Kidney aspirate: yeast- - Erica glabrata complex --Continue IV cefepime, Daptomycin discontinued Appreciate Urology Input Continue Purvis catheter Received a dose of fluconazole Follow-up final culture Needs follow-up with urology upon discharge PT OT chadd Consulted ID for further recommendations - Discussed w/ ID Erica glabrata and w/ pharmacy - started treatment w/ amphotericin (04/13/23) for now. Asked lab for sensitivities - sensitivities pending Discussed again w/ ID (04/14/23) - continue w/ amphotericin for now and cont. w/ cefepime and Daptomycin (dapto restarted) 04/16 KUB FINDINGS: Surgical clips of the abdominal right upper quadrant. Nonobstructive bowel gas pattern. Left ureteral stent. Small nonobstructing bilateral renal calculi again noted measuring up to 4 mm. No definite ureteral calculi identified. No pneumoperitoneum or pneumatosis. No fracture. IMPRESSION: 1. Nonobstructive bowel gas pattern. 2. Left ureteral stent in place. No ureteral calculi identified. 3. Bilateral nephrolithiasis. 04/17 Renal/ bladder US FINDINGS: Right kidney: 11.1 cm. 0.9 cm cyst of the inferior pole. Previously noted 4 linear calcification right kidney is not identified. No hydronephrosis. Normal corticomedullary differentiation and cortical thickness. Left kidney: 7.6 cm. Cyst in the upper pole redemonstrated measuring up to 5.6 cm. Several calculi within the inferior pole left kidney are again noted measuring up to 4 mm. Persistent left-sided hydronephrosis with cortical thinning. Bladder: Urine bladder wall thickening with partial distention. Ureteral jets were not identified. IMPRESSION: 1. Atrophy with cortical thinning and hydronephrosis of the left kidney redemonstrated. 2. Left nephrolithiasis. 04/18 - patient continues to have suprapubic tenderness. KUB and renal ultrasound obtained over the weekend. Patient also continues to be nauseous. Contacted urology to reevaluate the patient. Also discussed with infectious disease again, and decided to hold antibiotics and antifungal medications and observe the patient. Peer to peer also obtained, patient approved PERRI on CKD stage IV Non-anion gap metabolic acidosis Creatinine 3.2>>2.4>1.9 > 2.2 >2 >1.9 > 2 Received IV fluids Avoid nephrotoxic agents as able Monitor renal function Hypokalemia Replete electrolytes as needed Chronic diastolic heart failure Chronic respiratory failure/OHS/COPD/bronchiectasis as per records No signs of acute exacerbation -ECHO: EF 65 to 70%. Mild concentric LVH. 1 diastolic dysfunction. Mild tricuspid regurgitation. Estimated systolic pulmonary pressure 51 mm of Hg Continue home medications Monitor volume HTN BP low on metoprolol IV fluids as needed Monitor BP Pt was started on midodrine during this admission - continue to closely monitor Hyperlipidemia Hold Lipitor while on daptomycin DM II Hold p.o. meds Continue insulin while hospitalized Monitor BGs Chronic anemia Hb at baseline H/O Colon cancer S/P surgery Anxiety/mood disorder Continue home medication DVT Px: Heparin SQ Code Status DNR/DNI Disposition To be determined PT OT prior to discharge Admission and Anticipated Discharge Date Admission Date: April 07, 2023 Subjective Patient seen in follow up of UTI Continues to be hypotensive despite being on midodrine. Continues to have significant nausea, despite antiemetics. Reports persistent suprapubic pain. Left lower abdominal pain/left flank pain has resolved. Denies any chest pain or dyspnea. No fever, chills. Contacted lab, sensitivities for Erica glabrata still pending. KUB and bladder/renal US obtained Contacted urology today for persistent suprapubic pain Discussed w/ ID again today Peer to peer this pm Review of Systems Review of Systems: All systems reviewed & are unremarkable except as noted in Subjective Physical Exam Physical Exam: General Appearance: Obese F in NAD Head: normocephalic, Atraumatic Eyes: normal inspection, EOMI Neck: supple Respiratory/Chest: Normal breath sounds, CTA, No accessory muscle use Cardiovascular: S1, S2, No murmur Abdomen/GI:Soft, Bowel sounds present, obese abdomen, + suprapubic tenderness Extremities/Musculoskeletal:normal inspection, + mild LE edema Neurologic/Psych:AAOX3, grossly no focal neurological deficits Skin: normal color, warm Results & Data Results & Data Vital Signs (Past 12 Hours) Vital Signs Temp Pulse Pulse Pulse Resp BP Pulse Ox 04/18/23 11:28 94/56 L 04/18/23 11:27 36.5 C 83 20 83/63 L 95 04/18/23 08:38 04/18/23 07:44 36.6 C 83 16 92/59 L 96 04/18/23 07:14 72 04/18/23 06:45 36.7 C 78 18 91/60 L 97 04/18/23 04:59 36.9 C 86 20 111/65 98 O2 Del Method O2 Flow Rate 04/18/23 11:28 04/18/23 11:27 Nasal Cannula 04/18/23 08:38 Nasal Cannula 2 04/18/23 07:44 Nasal Cannula 04/18/23 07:14 04/18/23 06:45 Nasal Cannula 2 04/18/23 04:59 Nasal Cannula 2 Laboratory Results 04/18/23 04/18/23 04/18/23 Range/Units 11:21 07:36 07:10 WBC (4.8-10.8) K/ul RBC (4.20-5.40) M/uL Hgb 7.1 L (12.0-16.0) g/dl Hct 23.8 L (37.0-47.0) % MCV (80.0-100.0) fL MCH (25.0-34.0) pg MCHC (32.0-36.0) g/dL RDW Std Deviation (36.4-46.3) fL RDW Coeff of Teresa (11.5-14.5) % Plt Count (130-400) K/uL MPV (9.4-12.4) fL Sodium (136-145) mmol/L Potassium (3.5-5.1) mmol/L Chloride (98-107) mmol/L Carbon Dioxide (21-32) mmol/L Anion Gap (3-11) BUN (6-23) mg/dl Creatinine (0.6-1.2) mg/dl Est Cr Clr Drug Dosing ml/min Est GFR ( Amer) ml/min Est GFR (Non-Af Amer) ml/min BUN/Creatinine Ratio (10-20) Glucose (70-99(Fasting)) mg/dl POC Glucose 99 111 H (70-99) mg/dl Calcium (8.6-10.3) mg/dl Phosphorus (2.5-4.9) mg/dl Magnesium (1.7-2.4) mg/dl Stl C. diff Tox B Gene (Neg) 04/18/23 04/18/23 04/18/23 Range/Units 05:51 05:51 02:25 WBC 5.79 (4.8-10.8) K/ul RBC 2.20 L (4.20-5.40) M/uL Hgb 6.7 L* (12.0-16.0) g/dl Hct 22.4 L (37.0-47.0) % MCV 101.8 H (80.0-100.0) fL MCH 30.5 (25.0-34.0) pg MCHC 29.9 L (32.0-36.0) g/dL RDW Std Deviation 53.1 H (36.4-46.3) fL RDW Coeff of Teresa 14.2 (11.5-14.5) % Plt Count 126 L (130-400) K/uL MPV 10.9 (9.4-12.4) fL Sodium 138 (136-145) mmol/L Potassium 3.7 (3.5-5.1) mmol/L Chloride 111 H (98-107) mmol/L Carbon Dioxide 21 (21-32) mmol/L Anion Gap 6 (3-11) BUN 21 (6-23) mg/dl Creatinine 2.03 H (0.6-1.2) mg/dl Est Cr Clr Drug Dosing 25.1 ml/min Est GFR ( Amer) 28.3 ml/min Est GFR (Non-Af Amer) 24.4 ml/min BUN/Creatinine Ratio 10.3 (10-20) Glucose 104 H (70-99(Fasting)) mg/dl POC Glucose 120 H (70-99) mg/dl Calcium 8.3 L (8.6-10.3) mg/dl Phosphorus 2.9 (2.5-4.9) mg/dl Magnesium 1.9 (1.7-2.4) mg/dl Stl C. diff Tox B Gene (Neg) 04/17/23 04/17/23 04/17/23 Range/Units 20:47 16:03 15:00 WBC (4.8-10.8) K/ul RBC (4.20-5.40) M/uL Hgb (12.0-16.0) g/dl Hct (37.0-47.0) % MCV (80.0-100.0) fL MCH (25.0-34.0) pg MCHC (32.0-36.0) g/dL RDW Std Deviation (36.4-46.3) fL RDW Coeff of Teresa (11.5-14.5) % Plt Count (130-400) K/uL MPV (9.4-12.4) fL Sodium (136-145) mmol/L Potassium (3.5-5.1) mmol/L Chloride (98-107) mmol/L Carbon Dioxide (21-32) mmol/L Anion Gap (3-11) BUN (6-23) mg/dl Creatinine (0.6-1.2) mg/dl Est Cr Clr Drug Dosing ml/min Est GFR ( Amer) ml/min Est GFR (Non-Af Amer) ml/min BUN/Creatinine Ratio (10-20) Glucose (70-99(Fasting)) mg/dl POC Glucose 88 122 H (70-99) mg/dl Calcium (8.6-10.3) mg/dl Phosphorus (2.5-4.9) mg/dl Magnesium (1.7-2.4) mg/dl Stl C. diff Tox B Gene Negative Cdiff Gene (Neg) Medications Administered Current Inpatient Medications Acetaminophen (Acetaminophen 325 Mg Tab) 650 mg PO Q6H PRN PRN Reason: Fever/Pain Stop: 05/07/23 00:53 Last Admin: 04/17/23 07:50 Dose: 650 mg Amphotericin B (Amphotericin B Consult Active For Iv Formulations) 1 each N/A UD PRN PRN Reason: Consult Stop: 05/13/23 16:59 Dextrose (Dextrose 50% 50 Ml Syringe) 25 - 50 ml IV UD PRN; Protocol PRN Reason: Hypoglycemia Protocol Stop: 05/07/23 01:31 Diphenhydramine HCl (Diphenhydramine Hcl 25 Mg/10 Ml Udc) 25 mg PO Q6H PRN PRN Reason: Itching Stop: 05/11/23 11:01 Last Admin: 04/13/23 17:18 Dose: 25 mg Ferrous Gluconate (Ferrous Gluconate 324 Mg Tab) 324 mg PO QAM MARLA Stop: 05/07/23 08:59 Last Admin: 04/18/23 07:55 Dose: 324 mg Folic Acid (Folic Acid 1 Mg Tab) 1 mg PO QAM MARLA Stop: 05/07/23 08:59 Last Admin: 04/18/23 07:55 Dose: 1 mg Glucagon (Glucagon For Inj 1 Mg Vial) 1 mg SQ UD PRN; Protocol PRN Reason: Hypoglycemia Protocol Stop: 05/07/23 01:31 Glucose (Glucose 40% Gel 15 Gm Tube) 15 - 30 gm PO UD PRN; Protocol PRN Reason: Hypoglycemia Protocol Stop: 05/07/23 01:31 Glucose (Glucose 10 Tab/Tube) 4 - 8 tab PO UD PRN; Protocol PRN Reason: Hypoglycemia Treatment Stop: 05/07/23 01:31 Heparin Sodium (Porcine) (Heparin Sod 5,000 Unit/0.5 Ml Vial) 5,000 units SQ Q12 MARLA Stop: 05/10/23 20:59 Last Admin: 04/18/23 07:54 Dose: 5,000 units Hydroxyzine HCl (Hydroxyzine Hcl 10 Mg Tab) 10 mg PO HS MARLA Stop: 05/07/23 20:59 Last Admin: 04/13/23 20:33 Dose: 10 mg Amphotericin B 50 mg/ Dextrose 500 mls @ 82 mls/hr IV Q24H MARLA Stop: 04/23/23 17:59 Last Infusion: 04/18/23 01:26 Dose: Infused Cefepime HCl 1,000 mg/ Syringe 10 mls @ 5 mls/min IV Q12H MARLA; Protocol Stop: 04/24/23 00:59 Last Admin: 04/18/23 13:03 Dose: 5 mls/min Daptomycin 375 mg/ Syringe 7.5 mls @ 3.75 mls/min IV Q48H [facility]; Protocol Stop: 04/24/23 17:59 Last Admin: 04/16/23 17:45 Dose: 3.75 mls/min Insulin Aspart (Insulin Aspart Per Unit Charge) 0 units SC ACHS [facility] Stop: 05/07/23 01:31 Last Admin: 04/18/23 11:37 Dose: Not Given Lactobacillus Acidophilus (Advanced Probiotic 1250 Mg Capsule) 2 cap PO DAILY [facility] Stop: 05/15/23 12:59 Last Admin: 04/18/23 07:56 Dose: 2 cap Metoprolol Succinate (Metoprolol Succ 25mg Ext Rel Tab) 12.5 mg PO QAM [facility] Stop: 05/19/23 08:59 Midodrine (Midodrine Hcl 2.5 Mg Tab) 5 mg PO TID@0800,1200,1700 [facility] Stop: 05/14/23 11:59 Last Admin: 04/18/23 11:38 Dose: Not Given Miscellaneous (Carbohydrates For Hypoglycemia ) 15 - 30 gm PO UD PRN PRN Reason: Hypoglycemia Protocol Stop: 05/07/23 01:31 Nystatin (Nystatin Powder 15gm Btl) 1 appln EXT PRN PRN PRN Reason: Affected Skin Folds Stop: 05/13/23 17:39 Ondansetron HCl (Ondansetron Inj 2 Mg/Ml 2 Ml Vial) 4 mg IV Q6H PRN PRN Reason: Nausea And Vomiting Stop: 05/11/23 15:48 Last Admin: 04/18/23 08:01 Dose: 4 mg Oxcarbazepine (Oxcarbazepine 150 Mg Tablet) 300 mg PO BID [facility] Stop: 05/07/23 08:59 Last Admin: 04/18/23 07:53 Dose: 300 mg Oxybutynin Chloride (Oxybutynin Chloride Xl 5 Mg Tabcr) 5 mg PO QAM [facility] Stop: 05/07/23 08:59 Last Admin: 04/18/23 07:56 Dose: 5 mg Oxycodone HCl (Oxycodone Hcl Ir 5 Mg Tab (Immediate Release)) 5 mg PO Q4H PRN PRN Reason: Pain Stop: 04/21/23 00:47 Last Admin: 04/13/23 20:02 Dose: 5 mg Oxycodone HCl (Oxycodone Hcl Ir 5 Mg Tab (Immediate Release)) 2.5 mg PO Q6H PRN PRN Reason: Pain Stop: 05/01/23 10:28 Pantoprazole Sodium (Pantoprazole 40 Mg Tab) 40 mg PO BID [facility]LA Stop: 05/07/23 08:59 Last Admin: 04/18/23 07:55 Dose: 40 mg Phenazopyridine HCl (Phenazopyridine Hcl 200 Mg Tab) 200 mg PO TID PRN PRN Reason: Dysuria Stop: 05/10/23 11:13 Last Admin: 04/17/23 21:32 Dose: 200 mg
[2023-04-18] MEDS: DAPTOmycin 375 MG in SYRINGE 0 ML IV SCH (17:13)
[2023-04-18] MEDS: [UNRECOGNIZED DRUG - OTHER] IV SCH (19:22)
[2023-04-18] MEDS: DEXTROSE 5% IV SCH (19:22)
[2023-04-19] MEDS: CEFEPIME 1,000 MG in SYRINGE 0 ML IV SCH (01:28)
[2023-04-19 06:22] LABS: Hematocrit (blood only) 23.6 % (37.0-47.0); Hemoglobin 7.1 g/dl (12.0-16.0); Mean Corpuscular Hemoglobin 30.5 pg (25.0-34.0); Mean Corpuscular Hgb Conc 30.1 g/dL (32.0-36.0); Mean Corpuscular Volume 101.3 fL (80.0-100.0); Mean Platelet Volume 10.5 fL (9.4-12.4); Platelet Count 134 K/uL (130-400); RDW Coefficient of Variation 13.9 % (11.5-14.5); RDW Standard Deviation 51.8 fL (36.4-46.3); Red Blood Count 2.33 M/uL (4.20-5.40); White Blood Count 5.15 K/ul (4.8-10.8)
[2023-04-19 06:33] LABS: BUN Creatinine Ratio 9.8 (10-20); Calcium 8.4 mg/dl (8.6-10.3); Creatinine Clr Calc Pharmacy 24.9 ml/min; Est GFR (African American) 28.1 ml/min; Est GFR (Non-African American) 24.3 ml/min; Magnesium 1.8 mg/dl (1.7-2.4); Potassium 4.1 mmol/L (3.5-5.1)
[2023-04-19] MEDS: MIDODRINE HCL 2.5 MG TAB PO SCH ×3 (07:31→17:31)
[2023-04-19] MEDS: METOPROLOL SUCC 25MG EXT REL TAB PO SCH (07:32)
[2023-04-19] MEDS: OXcarbazepine 150 MG TABLET PO SCH ×2 (07:32→19:55)
[2023-04-19] MEDS: FERROUS GLUCONATE 324 MG TAB PO SCH (07:33)
[2023-04-19] MEDS: PANTOprazole 40 MG TAB PO SCH ×2 (07:33→19:55)
[2023-04-19] MEDS: OXYBUTYNIN CHLORIDE XL 5 MG TABCR PO SCH (07:33)
[2023-04-19] MEDS: HEPARIN SOD 5,000 UNIT/0.5 ML VIAL SQ SCH ×2 (07:33→19:55)
[2023-04-19] MEDS: ADVANCED PROBIOTIC 1250 MG CAPSULE PO SCH (07:35)
[2023-04-19] MEDS: FOLIC ACID 1 MG TAB PO SCH (07:36)
[2023-04-19] MEDS: INSULIN ASPART PER UNIT CHARGE SC SCH ×4 (08:11→20:20)
--- NOTE | 2023-04-19 08:34 | Hospitalist Progress Note ---
Date of Service April 19, 2023 Assessment & Plan (1) Complicated UTI (urinary tract infection): Plan: Complicated UTI Left hydroureteronephrosis H/O intolerance to stent placement in the past H/O VRE --CT ABD:The right kidney appears within normal limits. The left kidney is atrophic with chronic distention of the renal pelvis and ureter demonstrate mild surrounding inflammation, similar to previous. Probable mild chronic cystitis as well. Most of the colon has been resected. There is a small bowel to distal sigmoid colon anastomosis. No acute inflammatory changes are seen involving the bowel. --Repeat CT on 04/10/2023 suggestive of left-sided hydronephrosis, findings suggestive pyelonephritis. Also noted thick-walled left upper pole kidney cyst. --S/P cystoscopy, left retrograde pyelogram, left stent placed on 04/10/[address] Adam -- Urine culture: Negative --Repeat urine culture: Negative --Kidney aspirate: yeast- - Erica glabrata complex --Continue IV cefepime, Daptomycin discontinued Appreciate Urology Input Continue Purvis catheter Received a dose of fluconazole Follow-up final culture Needs follow-up with urology upon discharge PT OT chadd Consulted ID for further recommendations - Discussed w/ ID Erica glabrata and w/ pharmacy - started treatment w/ amphotericin (04/13/23) for now. Asked lab for sensitivities - sensitivities pending Discussed again w/ ID (04/14/23) - continue w/ amphotericin for now and cont. w/ cefepime and Daptomycin (dapto restarted) 04/16 KUB FINDINGS: Surgical clips of the abdominal right upper quadrant. Nonobstructive bowel gas pattern. Left ureteral stent. Small nonobstructing bilateral renal calculi again noted measuring up to 4 mm. No definite ureteral calculi identified. No pneumoperitoneum or pneumatosis. No fracture. IMPRESSION: 1. Nonobstructive bowel gas pattern. 2. Left ureteral stent in place. No ureteral calculi identified. 3. Bilateral nephrolithiasis. 04/17 Renal/ bladder US FINDINGS: Right kidney: 11.1 cm. 0.9 cm cyst of the inferior pole. Previously noted 4 linear calcification right kidney is not identified. No hydronephrosis. Normal corticomedullary differentiation and cortical thickness. Left kidney: 7.6 cm. Cyst in the upper pole redemonstrated measuring up to 5.6 cm. Several calculi within the inferior pole left kidney are again noted measuring up to 4 mm. Persistent left-sided hydronephrosis with cortical thinning. Bladder: Urine bladder wall thickening with partial distention. Ureteral jets were not identified. IMPRESSION: 1. Atrophy with cortical thinning and hydronephrosis of the left kidney redemonstrated. 2. Left nephrolithiasis. 04/18 - patient continues to have suprapubic tenderness. KUB and renal ultrasound obtained over the weekend. Patient also continues to be nauseous. Contacted urology to reevaluate the patient. Also discussed with infectious disease again, and decided to hold antibiotics and antifungal medications and observe the patient. Peer to peer also obtained, patient approved 04/19 patient continues to have some suprapubic tenderness, and nausea, and hypotension, however overall she reports to feel better today. Antibiotics and antifungal on hold now. Continue to closely monitor. PERRI on CKD stage IV Non-anion gap metabolic acidosis Creatinine 3.2>>2.4>1.9 > 2.2 >2 >1.9 > 2 Received IV fluids Avoid nephrotoxic agents as able Monitor renal function Hypokalemia Replete electrolytes as needed Chronic diastolic heart failure Chronic respiratory failure/OHS/COPD/bronchiectasis as per records No signs of acute exacerbation -ECHO: EF 65 to 70%. Mild concentric LVH. 1 diastolic dysfunction. Mild tricuspid regurgitation. Estimated systolic pulmonary pressure 51 mm of Hg Continue home medications Monitor volume HTN BP low on metoprolol IV fluids as needed Monitor BP Pt was started on midodrine during this admission - continue to closely monitor Hyperlipidemia Hold Lipitor while on daptomycin DM II Hold p.o. meds Continue insulin while hospitalized Monitor BGs Chronic anemia Hb at baseline H/O Colon cancer S/P surgery Anxiety/mood disorder Continue home medication DVT Px: Heparin SQ Code Status DNR/DNI Disposition To be determined PT OT prior to discharge Admission and Anticipated Discharge Date Admission Date: April 07, 2023 Subjective Patient seen in follow up of UTI Continues to be hypotensive despite being on midodrine. Continues to have nausea, despite antiemetics. Reports persistent suprapubic pain. Left lower abdominal pain/left flank pain has resolved. Denies any chest pain or dyspnea. No fever, chills. Overall however pt reports that she feels better. Review of Systems Review of Systems: All systems reviewed & are unremarkable except as noted in Subjective Physical Exam Physical Exam: General Appearance: Obese F in NAD Head: normocephalic, Atraumatic Eyes: normal inspection, EOMI Neck: supple Respiratory/Chest: Normal breath sounds, CTA, No accessory muscle use Cardiovascular: S1, S2, No murmur Abdomen/GI:Soft, Bowel sounds present, obese abdomen, + suprapubic tenderness Extremities/Musculoskeletal:normal inspection, + mild LE edema Neurologic/Psych:AAOX3, grossly no focal neurological deficits Skin: normal color, warm Results & Data Results & Data Vital Signs (Past 12 Hours) Vital Signs Temp Pulse Pulse Resp BP BP Pulse Ox 04/19/23 07:33 37.0 C 88 16 82/59 L 95 04/19/23 07:27 135 H 04/19/23 07:01 04/19/23 04:14 36.7 C 74 16 95/58 L 96 04/18/23 23:00 66 04/18/23 22:24 36.8 C 80 18 93/57 L 98 O2 Del Method O2 Flow Rate 04/19/23 07:33 Nasal Cannula 2 04/19/23 07:27 04/19/23 07:01 Nasal Cannula 2 04/19/23 04:14 Nasal Cannula 2 04/18/23 23:00 04/18/23 22:24 Nasal Cannula 2 Laboratory Results 04/19/23 04/19/23 04/19/23 Range/Units 07:40 05:48 05:48 WBC 5.15 (4.8-10.8) K/ul RBC 2.33 L (4.20-5.40) M/uL Hgb 7.1 L (12.0-16.0) g/dl Hct 23.6 L (37.0-47.0) % MCV 101.3 H (80.0-100.0) fL MCH 30.5 (25.0-34.0) pg MCHC 30.1 L (32.0-36.0) g/dL RDW Std Deviation 51.8 H (36.4-46.3) fL RDW Coeff of Teresa 13.9 (11.5-14.5) % Plt Count 134 (130-400) K/uL MPV 10.5 (9.4-12.4) fL Sodium 137 (136-145) mmol/L Potassium 4.1 (3.5-5.1) mmol/L Chloride 111 H (98-107) mmol/L Carbon Dioxide 19 L (21-32) mmol/L Anion Gap 7 (3-11) BUN 20 (6-23) mg/dl Creatinine 2.04 H (0.6-1.2) mg/dl Est Cr Clr Drug Dosing 24.9 ml/min Est GFR ( Amer) 28.1 ml/min Est GFR (Non-Af Amer) 24.3 ml/min BUN/Creatinine Ratio 9.8 L (10-20) Glucose 96 (70-99(Fasting)) mg/dl POC Glucose 101 H (70-99) mg/dl Calcium 8.4 L (8.6-10.3) mg/dl Phosphorus 3.0 (2.5-4.9) mg/dl Magnesium 1.8 (1.7-2.4) mg/dl 04/18/23 04/18/23 04/18/23 Range/Units 20:01 16:38 11:21 WBC (4.8-10.8) K/ul RBC (4.20-5.40) M/uL Hgb (12.0-16.0) g/dl Hct (37.0-47.0) % MCV (80.0-100.0) fL MCH (25.0-34.0) pg MCHC (32.0-36.0) g/dL RDW Std Deviation (36.4-46.3) fL RDW Coeff of Teresa (11.5-14.5) % Plt Count (130-400) K/uL MPV (9.4-12.4) fL Sodium (136-145) mmol/L Potassium (3.5-5.1) mmol/L Chloride (98-107) mmol/L Carbon Dioxide (21-32) mmol/L Anion Gap (3-11) BUN (6-23) mg/dl Creatinine (0.6-1.2) mg/dl Est Cr Clr Drug Dosing ml/min Est GFR ( Amer) ml/min Est GFR (Non-Af Amer) ml/min BUN/Creatinine Ratio (10-20) Glucose (70-99(Fasting)) mg/dl POC Glucose 95 90 99 (70-99) mg/dl Calcium (8.6-10.3) mg/dl Phosphorus (2.5-4.9) mg/dl Magnesium (1.7-2.4) mg/dl Medications Administered Current Inpatient Medications Acetaminophen (Acetaminophen 325 Mg Tab) 650 mg PO Q6H PRN PRN Reason: Fever/Pain Stop: 05/07/23 00:53 Last Admin: 04/17/23 07:50 Dose: 650 mg Amphotericin B (Amphotericin B Consult Active For Iv Formulations) 1 each N/A UD PRN PRN Reason: Consult Stop: 05/13/23 16:59 Dextrose (Dextrose 50% 50 Ml Syringe) 25 - 50 ml IV UD PRN; Protocol PRN Reason: Hypoglycemia Protocol Stop: 05/07/23 01:31 Diphenhydramine HCl (Diphenhydramine Hcl 25 Mg/10 Ml Udc) 25 mg PO Q6H PRN PRN Reason: Itching Stop: 05/11/23 11:01 Last Admin: 04/13/23 17:18 Dose: 25 mg Ferrous Gluconate (Ferrous Gluconate 324 Mg Tab) 324 mg PO QAM [facility]LA Stop: 05/07/23 08:59 Last Admin: 04/19/23 07:33 Dose: 324 mg Folic Acid (Folic Acid 1 Mg Tab) 1 mg PO QAM [facility] Stop: 05/07/23 08:59 Last Admin: 04/19/23 07:36 Dose: 1 mg Glucagon (Glucagon For Inj 1 Mg Vial) 1 mg SQ UD PRN; Protocol PRN Reason: Hypoglycemia Protocol Stop: 05/07/23 01:31 Glucose (Glucose 40% Gel 15 Gm Tube) 15 - 30 gm PO UD PRN; Protocol PRN Reason: Hypoglycemia Protocol Stop: 05/07/23 01:31 Glucose (Glucose 10 Tab/Tube) 4 - 8 tab PO UD PRN; Protocol PRN Reason: Hypoglycemia Treatment Stop: 05/07/23 01:31 Heparin Sodium (Porcine) (Heparin Sod 5,000 Unit/0.5 Ml Vial) 5,000 units SQ Q12 [facility] Stop: 05/10/23 20:59 Last Admin: 04/19/23 07:33 Dose: 5,000 units Hydroxyzine HCl (Hydroxyzine Hcl 10 Mg Tab) 10 mg PO HS [facility] Stop: 05/07/23 20:59 Last Admin: 04/13/23 20:33 Dose: 10 mg Amphotericin B 50 mg/ Dextrose 500 mls @ 82 mls/hr IV Q24H [facility] Stop: 04/23/23 17:59 Last Infusion: 04/19/23 01:28 Dose: Infused Cefepime HCl 1,000 mg/ Syringe 10 mls @ 5 mls/min IV Q12H [facility]; Protocol Stop: 04/24/23 00:59 Last Admin: 04/19/23 01:28 Dose: 5 mls/min Daptomycin 375 mg/ Syringe 7.5 mls @ 3.75 mls/min IV Q48H [facility]; Protocol Stop: 04/24/23 17:59 Last Admin: 04/18/23 17:13 Dose: 3.75 mls/min Insulin Aspart (Insulin Aspart Per Unit Charge) 0 units SC ACHS [facility] Stop: 05/07/23 01:31 Last Admin: 04/19/23 08:11 Dose: Not Given Lactobacillus Acidophilus (Advanced Probiotic 1250 Mg Capsule) 2 cap PO DAILY [facility] Stop: 05/15/23 12:59 Last Admin: 04/19/23 07:35 Dose: 2 cap Metoprolol Succinate (Metoprolol Succ 25mg Ext Rel Tab) 12.5 mg PO QAM [facility] Stop: 05/19/23 08:59 Last Admin: 04/19/23 07:32 Dose: Not Given Midodrine (Midodrine Hcl 2.5 Mg Tab) 5 mg PO TID@0800,1200,1700 [facility] Stop: 05/14/23 11:59 Last Admin: 04/19/23 07:31 Dose: 5 mg Miscellaneous (Carbohydrates For Hypoglycemia ) 15 - 30 gm PO UD PRN PRN Reason: Hypoglycemia Protocol Stop: 05/07/23 01:31 Nystatin (Nystatin Powder 15gm Btl) 1 appln EXT PRN PRN PRN Reason: Affected Skin Folds Stop: 05/13/23 17:39 Ondansetron HCl (Ondansetron Inj 2 Mg/Ml 2 Ml Vial) 4 mg IV Q6H PRN PRN Reason: Nausea And Vomiting Stop: 05/11/23 15:48 Last Admin: 04/18/23 08:01 Dose: 4 mg Oxcarbazepine (Oxcarbazepine 150 Mg Tablet) 300 mg PO BID [facility] Stop: 05/07/23 08:59 Last Admin: 04/19/23 07:32 Dose: 300 mg Oxybutynin Chloride (Oxybutynin Chloride Xl 5 Mg Tabcr) 5 mg PO QAM [facility] Stop: 05/07/23 08:59 Last Admin: 04/19/23 07:33 Dose: 5 mg Oxycodone HCl (Oxycodone Hcl Ir 5 Mg Tab (Immediate Release)) 5 mg PO Q4H PRN PRN Reason: Pain Stop: 04/21/23 00:47 Last Admin: 04/13/23 20:02 Dose: 5 mg Oxycodone HCl (Oxycodone Hcl Ir 5 Mg Tab (Immediate Release)) 2.5 mg PO Q6H PRN PRN Reason: Pain Stop: 05/01/23 10:28 Pantoprazole Sodium (Pantoprazole 40 Mg Tab) 40 mg PO BID [facility] Stop: 05/07/23 08:59 Last Admin: 04/19/23 07:33 Dose: 40 mg Phenazopyridine HCl (Phenazopyridine Hcl 200 Mg Tab) 200 mg PO TID PRN PRN Reason: Dysuria Stop: 05/10/23 11:13 Last Admin: 04/17/23 21:32 Dose: 200 mg
[2023-04-19] MEDS ORDERED: PROMETHAZINE HCL 6.25 MG in SODIUM CHLORIDE 0.9% 50 ML IV STA (08:49)
[2023-04-20 07:54] LABS: Hematocrit (blood only) 23.9 % (37.0-47.0); Hemoglobin 7.2 g/dl (12.0-16.0); Mean Corpuscular Hemoglobin 30.8 pg (25.0-34.0); Mean Corpuscular Hgb Conc 30.1 g/dL (32.0-36.0); Mean Corpuscular Volume 102.1 fL (80.0-100.0); Mean Platelet Volume 10.5 fL (9.4-12.4); Platelet Count 145 K/uL (130-400); RDW Standard Deviation 52.2 fL (36.4-46.3); Red Blood Count 2.34 M/uL (4.20-5.40); White Blood Count 3.99 K/ul (4.8-10.8)
[2023-04-20 08:16] LABS: BUN Creatinine Ratio 9.4 (10-20); Calcium 8.3 mg/dl (8.6-10.3); Creatinine Clr Calc Pharmacy 24.1 ml/min; Est GFR (African American) 26.8 ml/min; Est GFR (Non-African American) 23.2 ml/min; Magnesium 1.8 mg/dl (1.7-2.4); Phosphorus 2.9 mg/dl (2.5-4.9); Potassium 3.5 mmol/L (3.5-5.1)
[2023-04-20] MEDS: INSULIN ASPART PER UNIT CHARGE SC SCH ×4 (08:22→20:11)
[2023-04-20] MEDS: MIDODRINE HCL 2.5 MG TAB PO SCH ×3 (08:43→17:22)
[2023-04-20] MEDS: FERROUS GLUCONATE 324 MG TAB PO SCH (08:43)
[2023-04-20] MEDS: ADVANCED PROBIOTIC 1250 MG CAPSULE PO SCH (08:44)
[2023-04-20] MEDS: FOLIC ACID 1 MG TAB PO SCH (08:44)
[2023-04-20] MEDS: HEPARIN SOD 5,000 UNIT/0.5 ML VIAL SQ SCH ×2 (08:44→19:33)
[2023-04-20] MEDS: METOPROLOL SUCC 25MG EXT REL TAB PO SCH (08:45)
[2023-04-20] MEDS: OXcarbazepine 150 MG TABLET PO SCH ×2 (08:46→19:32)
[2023-04-20] MEDS: PANTOprazole 40 MG TAB PO SCH ×2 (08:47→19:32)
[2023-04-20] MEDS: OXYBUTYNIN CHLORIDE XL 5 MG TABCR PO SCH (08:47)
[2023-04-20] MEDS: PROMETHAZINE HCL 12.5 MG in SODIUM CHLORIDE 0.9% 50 ML IV PRN (12:22)
--- NOTE | 2023-04-20 16:37 | Hospitalist Progress Note ---
Date of Service April 20, 2023 Assessment & Plan (1) Complicated UTI (urinary tract infection): Plan: per Dr. Millard's notes with addendum: Complicated UTI Left hydroureteronephrosis H/O intolerance to stent placement in the past H/O VRE --CT ABD:The right kidney appears within normal limits. The left kidney is atrophic with chronic distention of the renal pelvis and ureter demonstrate mild surrounding inflammation, similar to previous. Probable mild chronic cystitis as well. Most of the colon has been resected. There is a small bowel to distal sigmoid colon anastomosis. No acute inflammatory changes are seen involving the bowel. --Repeat CT on 04/10/2023 suggestive of left-sided hydronephrosis, findings suggestive pyelonephritis. Also noted thick-walled left upper pole kidney cyst. --S/P cystoscopy, left retrograde pyelogram, left stent placed on 04/10/[address] Adam -- Urine culture: Negative --Repeat urine culture: Negative --Kidney aspirate: yeast- - Erica glabrata complex --Continue IV cefepime, Daptomycin discontinued Appreciate Urology Input Continue Purvis catheter Received a dose of fluconazole Follow-up final culture Needs follow-up with urology upon discharge PT OT chadd Consulted ID for further recommendations - Discussed w/ ID Erica glabrata and w/ pharmacy - started treatment w/ amphotericin (04/13/23) for now. Asked lab for sensitivities - sensitivities pending Discussed again w/ ID (04/14/23) - continue w/ amphotericin for now and cont. w/ cefepime and Daptomycin (dapto restarted) 04/16 KUB FINDINGS: Surgical clips of the abdominal right upper quadrant. Nonobstructive bowel gas pattern. Left ureteral stent. Small nonobstructing bilateral renal calculi again noted measuring up to 4 mm. No definite ureteral calculi identified. No pneumoperitoneum or pneumatosis. No fracture. IMPRESSION: 1. Nonobstructive bowel gas pattern. 2. Left ureteral stent in place. No ureteral calculi identified. 3. Bilateral nephrolithiasis. 04/17 Renal/ bladder US FINDINGS: Right kidney: 11.1 cm. 0.9 cm cyst of the inferior pole. Previously noted 4 linear calcification right kidney is not identified. No hydronephrosis. Normal corticomedullary differentiation and cortical thickness. Left kidney: 7.6 cm. Cyst in the upper pole redemonstrated measuring up to 5.6 cm. Several calculi within the inferior pole left kidney are again noted measuring up to 4 mm. Persistent left-sided hydronephrosis with cortical thinning. Bladder: Urine bladder wall thickening with partial distention. Ureteral jets were not identified. IMPRESSION: 1. Atrophy with cortical thinning and hydronephrosis of the left kidney redemonstrated. 2. Left nephrolithiasis. 04/18 - patient continues to have suprapubic tenderness. KUB and renal ultrasound obtained over the weekend. Patient also continues to be nauseous. Contacted urology to reevaluate the patient. Also discussed with infectious disease again, and decided to hold antibiotics and antifungal medications and observe the patient. Peer to peer also obtained, patient approved 04/19 patient continues to have some suprapubic tenderness, and nausea, and hypotension, however overall she reports to feel better today. Antibiotics and antifungal on hold now. Continue to closely monitor. 04/20 Nausea, pain improving overall Afebrile Blood pressure also improving Off antibiotics and Amphotericin Continue to monitor closely PERRI on CKD stage IV Non-anion gap metabolic acidosis Creatinine 3.2>>2.4>1.9 > 2.2 >2 >1.9 > 2 --Creatinine stable around 2 for 3 days Hypokalemia Replete electrolytes as needed Chronic diastolic heart failure Chronic respiratory failure/OHS/COPD/bronchiectasis as per records No signs of acute exacerbation -ECHO: EF 65 to 70%. Mild concentric LVH. 1 diastolic dysfunction. Mild tricuspid regurgitation. Estimated systolic pulmonary pressure 51 mm of Hg -Stable HTN BP low on metoprolol Pt was started on midodrine during this admission --Improving Hyperlipidemia Hold Lipitor while on daptomycin DM II Hold p.o. meds BSG 92-99 On insulin sliding scale Chronic anemia Hb at baseline H/O Colon cancer S/P surgery Anxiety/mood disorder Continue home medication DVT Px: Heparin SQ Code Status DNR/DNI Disposition Patient and her daughter Jennifer at the bedside would like the patient to be discharged to home when medically stable Anticipate discharge tomorrow Admission and Anticipated Discharge Date Admission Date: April 07, 2023 Subjective Follow-up for pyelonephritis, hydroureteronephrosis, etc. Seen sitting up in bed, comfortable, not in distress, in good spirits States abdominal and back pain are improving Still having some nausea but chronic No fevers or chills no chest pain, dyspnea, palpitations, dizziness No other new symptom Review of Systems Review of Systems: all noted and negative except for above Physical Exam Physical Exam: General- oriented x 3, not in distress, speaks in sentences with no effort or accessory muscle use Head- atraumatic Eyes- PERRL, EOMI, anicteric ENT- oropharynx clear Neck- supple, no JVD, no adenopathy, no thyromegaly; carotids +2/2, no bruits appreciated Lungs- clear to auscultation bilaterally, no rales/wheezes Heart- normal rate, regular rhythm; no murmur, no gallop, no rub appreciated Abdomen- normal bowel sounds, nondistended, soft, nontender, no masses or hepatosplenomegaly No CVA tenderness Extremities- no pretibial edema, no calf tenderness; peripheral pulses intact Neuro- alert, oriented x 3; CN 2-12 grossly intact; motor 5/5 bilaterally; sensation 100% on all extremities; no other gross focal neurologic deficits Skin- warm & dry Results & Data Results & Data Vital Signs (Past 12 Hours) Vital Signs Temp Pulse Pulse Resp BP Pulse Ox O2 Del Method 04/20/23 15:21 81 04/20/23 11:11 36.9 C 99 H 16 145/69 H 96 Nasal Cannula 04/20/23 09:26 Room Air 04/20/23 07:42 36.6 C 101 H 16 104/66 90 Room Air 04/20/23 07:17 95 H O2 Flow Rate 04/20/23 15:21 04/20/23 11:11 2 04/20/23 09:26 04/20/23 07:42 04/20/23 07:17 all noted and reviewed including below
[2023-04-21] MEDS: PROMETHAZINE HCL 12.5 MG in SODIUM CHLORIDE 0.9% 50 ML IV PRN (08:24)
[2023-04-21] MEDS: INSULIN ASPART PER UNIT CHARGE SC SCH (08:51)
[2023-04-21] MEDS: OXcarbazepine 150 MG TABLET PO SCH (09:09)
[2023-04-21] MEDS: PANTOprazole 40 MG TAB PO SCH (09:09)
[2023-04-21] MEDS: OXYBUTYNIN CHLORIDE XL 5 MG TABCR PO SCH (09:10)
[2023-04-21] MEDS: MIDODRINE HCL 2.5 MG TAB PO SCH (09:10)
[2023-04-21] MEDS: METOPROLOL SUCC 25MG EXT REL TAB PO SCH (09:10)
[2023-04-21] MEDS: FERROUS GLUCONATE 324 MG TAB PO SCH (09:12)
[2023-04-21] MEDS: HEPARIN SOD 5,000 UNIT/0.5 ML VIAL SQ SCH (09:12)
[2023-04-21] MEDS: ADVANCED PROBIOTIC 1250 MG CAPSULE PO SCH (09:15)
[2023-04-21] MEDS: FOLIC ACID 1 MG TAB PO SCH (09:15)
--- NOTE | 2023-04-21 10:59 | Hospitalist Progress Note ---
Date of Service April 21, 2023 Assessment & Plan (1) Complicated UTI (urinary tract infection): Plan: per Dr. Millard's notes with addendum: Complicated UTI Left hydroureteronephrosis H/O VRE --CT ABD:The right kidney appears within normal limits. The left kidney is atrophic with chronic distention of the renal pelvis and ureter demonstrate mild surrounding inflammation, similar to previous. Probable mild chronic cystitis as well. Most of the colon has been resected. There is a small bowel to distal sigmoid colon anastomosis. No acute inflammatory changes are seen involving the bowel. --Repeat CT on 04/10/2023 suggestive of left-sided hydronephrosis, findings suggestive pyelonephritis. Also noted thick-walled left upper pole kidney cyst. --S/P cystoscopy, left retrograde pyelogram, left stent placed on 04/10/[address] Adam -- Urine culture: Negative --Repeat urine culture: Negative --Kidney aspirate: yeast- - Erica glabrata complex -- ID consulted, patient completed course of daptomycin, cefepime, Amphotericin while admitted Placed on midodrine for marginal blood pressure 04/21 Nausea, pain improved overall Afebrile Blood pressure also improving --Discharge to home Continue midodrine 5 mg p.o. 3 times daily, wean off accordingly -- Follow-up with urologist for ureteral stent removal in 1 to 2 weeks next PERRI on CKD stage IV Non-anion gap metabolic acidosis Creatinine 3.2>>2.4> 2 --Creatinine stable around 2 for 3 days Chronic diastolic heart failure Chronic respiratory failure/OHS/COPD/bronchiectasis as per records No signs of acute exacerbation -ECHO: EF 65 to 70%. Mild concentric LVH. 1 diastolic dysfunction. Mild tricuspid regurgitation. Estimated systolic pulmonary pressure 51 mm of Hg -Stable HTN BP low on metoprolol --> decreased Pt was started on midodrine during this admission --Improving Continue midodrine 5 mg p.o. 3 times daily, wean off accordingly Hyperlipidemia On Lipitor DM II Continue p.o. meds Chronic anemia Hb at baseline H/O Colon cancer S/P surgery Anxiety/mood disorder Continue home medication Disposition Discharge to home PCP follow-up in 1 week Urology follow-up in 1 week plan of care discussed with patient in detail and at length all questions answered they are understanding, agreeable, comfortable with the plan of care Admission and Anticipated Discharge Date Admission Date: April 07, 2023 Subjective Follow-up for pyelonephritis, etc. Seen resting in bed, comfortable, not in distress Good spirits States she feels much better overall Denies flank, back pain, abdominal pain No fevers or chills Denies small problems with urination Ambulating in her room with no problems No other new symptoms States that she is ready and would like to be discharged today Review of Systems Review of Systems: all noted and negative except for above Physical Exam Physical Exam: General- oriented x 3, not in distress, speaks in sentences with no effort or accessory muscle use Eyes- anicteric Neck- no JVD Lungs- clear breath sounds bilaterally, no rales/wheezes Heart- normal rate, regular rhythm; no murmurs Abdomen- normal bowel sounds, nondistended, soft, nontender Extremities- no pretibial edema, no calf tenderness Neuro- alert, oriented x 3; no gross focal neurologic deficits Skin- warm & dry Results & Data Results & Data Vital Signs (Past 12 Hours) Vital Signs Temp Pulse Pulse Resp BP BP Pulse Ox 04/21/23 07:00 79 04/21/23 09:22 04/21/23 08:11 37.0 C 120 H 20 110/67 95 04/21/23 05:00 79 04/21/23 03:13 36.9 C 120 H 18 103/65 95 O2 Del Method O2 Flow Rate 04/21/23 07:00 04/21/23 09:22 Nasal Cannula 2 04/21/23 08:11 Room Air 04/21/23 05:00 04/21/23 03:13 Nasal Cannula 2 all noted and reviewed including below
--- NOTE | 2023-04-21 18:06 | Discharge Summary ---
Discharge Summary Date of Service April 21, 2023 Notes For Next Care Provider Medication Changes From Visit New medication: Midodrine 5 mg p.o. 3 times daily Admission HPI Per Admitting Provider History obtained from patient and records. Medical history significant for chronic diastolic heart failure (EF 60 to 65%, TTE 2019), chronic respiratory failure, OHS as per records, HTN, hyperlipidemia, COPD/bronchiectasis as per records, DM 2 on oral medications, CRI (baseline creatinine 2 as of December 2022), chronic anemia (baseline hemoglobin 11 ), colon cancer status post surgery, history of bleeding renal cyst status post embolization, history of myoclonic jerks as per records, anxiety/mood disorder, urolithiasis, ambulatory dysfunction, history of VRE UTI as per records. Last confinement November 2022 for ARF on CKD. Creatinine improved to baseline on discharge. Patient noted worsening of chronic lower abdominal pain the last few days. Some nausea and emesis. No headache, no unusual chest pain, no unusual shortness of breath. Patient seen at PCP's office 2 days ago. Cipro and Flagyl prescribed for presumptive diverticulitis. Outpatient labs and CT abdomen pelvis requested. Serum creatinine noted to be 3.6. Patient directed to ER for further evaluation. Medical History as above Surgical History : Right lesion excision, bowel surgery, kidney stone procedure, cataract surgery, cholecystectomy, ALLEN/BSO Family History : Breast cancer, DM, liver disease Personal/Social history : Non-smoker, no EtOH intake, disabled Admission Exam Per Admitting Provider GENERAL: uncomfortable, obese, no respiratory distress SKIN: Pallor, warm HEENT: Pale palpebral conjunctivae, no ptosis, dry buccal mucosa NECK : Supple, short neck, no tenderness CHEST : Decreased breath sounds, no tenderness HEART : RRR, no obvious murmurs ABDOMEN: Some distention, hypogastric tenderness EXTREMITIES : Minimal LE swelling, no LE tenderness, no other conspicuous deformities noted NEUROLOGIC : Coherent, no facial asymmetry, no other gross focality Principal Dx & Hospital Course #1 = Principal Diagnosis (1) Complicated UTI (urinary tract infection): per Dr. Millard's notes with addendum: Complicated UTI Left hydroureteronephrosis H/O VRE --CT ABD:The right kidney appears within normal limits. The left kidney is atrophic with chronic distention of the renal pelvis and ureter demonstrate mild surrounding inflammation, similar to previous. Probable mild chronic cystitis as well. Most of the colon has been resected. There is a small bowel to distal sigmoid colon anastomosis. No acute inflammatory changes are seen involving the bowel. --Repeat CT on 04/10/2023 suggestive of left-sided hydronephrosis, findings suggestive pyelonephritis. Also noted thick-walled left upper pole kidney cyst. --S/P cystoscopy, left retrograde pyelogram, left stent placed on 04/10/[address] Jon -- Urine culture: Negative --Repeat urine culture: Negative --Kidney aspirate: yeast- - Erica glabrata complex -- ID consulted, patient completed course of daptomycin, cefepime, Amphotericin while admitted Placed on midodrine for marginal blood pressure 04/21 Nausea, pain improved overall Afebrile Blood pressure also improving --Discharge to home Continue midodrine 5 mg p.o. 3 times daily, wean off accordingly -- Follow-up with urologist for ureteral stent removal in 1 to 2 weeks next PERRI on CKD stage IV Non-anion gap metabolic acidosis Creatinine 3.2>>2.4> 2 --Creatinine stable around 2 for 3 days Chronic diastolic heart failure Chronic respiratory failure/OHS/COPD/bronchiectasis as per records No signs of acute exacerbation -ECHO: EF 65 to 70%. Mild concentric LVH. 1 diastolic dysfunction. Mild tricuspid regurgitation. Estimated systolic pulmonary pressure 51 mm of Hg -Stable HTN BP low on metoprolol --> decreased Pt was started on midodrine during this admission --Improving Continue midodrine 5 mg p.o. 3 times daily, wean off accordingly Hyperlipidemia On Lipitor DM II Continue p.o. meds Chronic anemia Hb at baseline H/O Colon cancer S/P surgery Anxiety/mood disorder Continue home medication Disposition Discharge to home PCP follow-up in 1 week Urology follow-up in 1 week plan of care discussed with patient in detail and at length all questions answered they are understanding, agreeable, comfortable with the plan of care Discharge Exam General- oriented x 3, not in distress, speaks in sentences with no effort or accessory muscle use Eyes- anicteric Neck- no JVD Lungs- clear breath sounds bilaterally, no rales/wheezes Heart- normal rate, regular rhythm; no murmurs Abdomen- normal bowel sounds, nondistended, soft, nontender Extremities- no pretibial edema, no calf tenderness Neuro- alert, oriented x 3; no gross focal neurologic deficits Skin- warm & dry Updated Medication List Medication Instructions Recorded Confirmed Type atorvastatin 40 mg tablet (Lipitor) 40 mg PO QPM 07/12/18 04/06/23 History pantoprazole 40 mg tablet,delayed 40 mg PO BID 07/12/18 04/06/23 History release (Protonix) riboflavin (vitamin B2) 400 mg 400 mg PO QAM 07/12/18 04/06/23 History tablet cholecalciferol (vitamin D3) 50 2,000 unit PO QAM 05/16/19 04/06/23 History mcg (2,000 unit) capsule (Vitamin D3) albuterol sulfate 90 mcg/actuation 2 puff inhalation Q4H PRN 07/21/19 04/06/23 History aerosol inhaler Shortness Of Breath glipizide 2.5 mg tablet, extended 2.5 mg PO QAM 04/29/21 04/06/23 History release 24 hr (Glucotrol XL) oxcarbazepine 300 mg tablet 300 mg PO BID 12/22/21 04/06/23 History loperamide 2 mg capsule 2 mg PO TID PRN diarrhea #30 caps 01/18/22 04/06/23 Rx hydroxyzine HCl 10 mg tablet 10 mg PO HS 11/02/22 04/06/23 History magnesium oxide 400 mg (241.3 mg 400 mg PO QAM 11/02/22 04/06/23 History magnesium) tablet acetaminophen 325 mg tablet 650 mg PO Q8H PRN fever or pain 11/09/22 04/06/23 Rx #60 tabs cyanocobalamin (vitamin B-12) 100 100 mcg PO QAM #30 tabs 11/09/22 04/06/23 Rx mcg tablet (Vitamin B-12) ferrous gluconate 324 mg (38 mg 324 mg PO QAM #30 tabs 11/09/22 04/06/23 Rx iron) tablet folic acid 1 mg tablet 1 mg PO QAM #30 tabs 11/09/22 04/06/23 Rx ondansetron 4 mg disintegrating 4 mg PO Q8H PRN nausea and 11/09/22 04/06/23 Rx tablet vomiting #30 tabs oxybutynin chloride 5 mg 5 mg PO QAM 02/09/23 04/06/23 History tablet,extended release 24 hr metoprolol succinate 25 mg 12.5 mg PO QAM 30 days #15 tabs 04/21/23 Rx tablet,extended release 24 hr midodrine 5 mg tablet 5 mg PO TID #90 tabs 04/21/23 Rx Hospital Stay Data Consultations 04/06/23 22:56 ED Decision to Admit Stat 04/07/23 11:57 Consult Urology Routine 04/13/23 08:00 Consult Infectious Diseases Routine Procedures Performed Operation Date: 04/10/23 11:00 Actual Procedures p Cystoscopy, Left retrograde pyelogram(Left) - Rajan Jon DO Diagnostic Imagining Performed 04/06/23 19:20 CT abd pelvis wo con Stat FINDINGS: Lung bases: There are several granulomas in the lung base, unchanged. Mediastinum: There is a 5 cm hiatal hernia. ABDOMEN: Liver: Unremarkable. Gallbladder and bile ducts: Previous cholecystectomy. No biliary duct dilation is seen. Pancreas: Unremarkable. No ductal dilation. Spleen: Unremarkable. No splenomegaly. Adrenals: Unremarkable. No mass. Kidneys and ureters: Atrophy of the left kidney. There is a simple cysts in the upper pole measuring 5.6 cm and a 2.2 cm cyst in the lower pole, possibly representing the collecting system mild surrounding edema, unchanged. Multiple calyceal calculi are present on the left measuring up to 5 mm. Mild dilation of the proximal left ureter. No ureterolithiasis is seen. 4 mm parenchymal calcification of the right kidney. No hydronephrosis or ureterolithiasis on the right. Stomach and bowel: Most of the colon has been resected. There is a small bowel to distal sigmoid colon anastomosis. No acute inflammatory changes are seen involving the bowel. No obstruction. No mucosal thickening. PELVIS: Appendix: No findings to suggest acute appendicitis. Bladder: The urinary bladder is small and slight surrounding edema. Consider chronic cystitis. No stones. Reproductive: Unremarkable as visualized. ABDOMEN and PELVIS: Intraperitoneal space: Unremarkable. No free air. No significant fluid collection. Bones/joints: Mild degenerative changes throughout the spine. No acute fracture or subluxation is seen. Soft tissues: See above. Vasculature: Unremarkable. No abdominal aortic aneurysm. Lymph nodes: Unremarkable. No enlarged lymph nodes. IMPRESSION: The right kidney appears within normal limits. The left kidney is atrophic with chronic distention of the renal pelvis and ureter demonstrate mild surrounding inflammation, similar to previous. Probable mild chronic cystitis as well. Most of the colon has been resected. There is a small bowel to distal sigmoid colon anastomosis. No acute inflammatory changes are seen involving the bowel. 04/10/23 FL retrograde includes kub Routine 04/10/23 04:32 CT Abd and Pelvis [CT abd pelvis wo con] Stat 04/13/23 21:33 CT abd pelvis wo con Stat CT head/brain wo con Stat COMPARISON: No relevant prior studies available. FINDINGS: Lung bases: Unremarkable. No mass. No consolidation. Pleural space: bilateral pleural effusions right greater than left. Mediastinum: Large esophageal hiatal hernia. ABDOMEN: Liver: Unremarkable. Gallbladder and bile ducts: Postoperative changes prior cholecystectomy. No ductal dilation. Pancreas: Unremarkable. No ductal dilation. Spleen: Unremarkable. No splenomegaly. Adrenals: Unremarkable. No mass. Kidneys and ureters: Nonobstructing right lower pole renal calculus. Stomach and bowel: Unremarkable. No obstruction. No mucosal thickening. PELVIS: Appendix: No findings to suggest acute appendicitis. Bladder: Unremarkable. No stones. Reproductive: Unremarkable as visualized. ABDOMEN and PELVIS: Intraperitoneal space: Unremarkable. No significant fluid collection. No free air or intestinal obstruction. Bones/joints: No acute fracture. No dislocation. Soft tissues: Unremarkable. Vasculature: Unremarkable. No abdominal aortic aneurysm. Lymph nodes: Unremarkable. No enlarged lymph nodes. Tubes, lines and devices: Left sided internalized ureteral stent with its proximal and distal aspects approximately located within the left renal pelvis and urinary bladder respectively. Left renal parenchymal atrophy with left renal cyst measuring 6.6 cm. Mild left periureteral stranding likely reactive in nature secondary to the presence of the above-mentioned catheter. IMPRESSION: 1. Bilateral pleural effusions 2. Left sided internalized ureteral stent appropriate position no left hydronephrosis 3. Postoperative changes prior cholecystectomy 04/17/23 09:14 US Renal Bladder [US renal/blad retro comp] Routine Pending Results Patient Have Any Pending Studies at Discharge: No Discharge Instructions Given to Patient (Per Discharging Provider) PLEASE REFER TO YOUR NEW MEDICATION LIST AND FOLLOW INSTRUCTIONS CAREFULLY. YOUR NEW MEDICATION INCLUDE: Midodrine - for low blood pressure Take a probiotic daily for at least 1 month. ([employer] recommended) Include yogurt in your daily diet. PLEASE CALL YOUR PRIMARY CARE PHYSICIAN OR RETURN TO THE ER IF WITH WORSENING OF SYMPTOMS, INCLUDING fever/chills, back/flank/abdominal pain, nausea/vomiting, problems with urination, etc FOLLOW UP WITH PRIMARY CARE PHYSICIAN OUTLINED ABOVE. FOLLOW UP WITH UROLOGIST DR. RAJAN JON OUTLINED ABOVE. Total Time Total Time Spent Total Time Spent (In Minutes): > 30 minutes
== END 2023-04-21 12:17 | disposition home health service (06) | DRG 660 ==
LOC: ED 17:58 → EDINP 04-07 00:52 → SUATTDRO 04-07 00:52 → 2W 04-07 17:29

== ENCOUNTER 2025-02-12 10:56 | Inpatient (IN) ==
[2025-02-12] MEDS: SODIUM CHLORIDE 0.9% 1,000 ML IV ONE (11:10)
[2025-02-12] MEDS: ADENOSINE IV SOLN 3 MG/ML 2 ML VIAL IV STA (11:15)
[2025-02-12 11:26] LABS: Basophils # (auto) 0.04 K/uL (0.00-0.20); Basophils % (auto) 0.3 %; Eosinophils # (auto) 0.06 K/uL (0.00-0.50); Eosinophils % (auto) 0.5 %; Hematocrit (blood only) 35.6 % (37.0-47.0); Immature Granulocytes # (auto) 0.06 K/uL (0.01-0.20); Immature Granulocytes % (auto) 0.5 %; Lymphocytes # (auto) 0.69 K/uL (1.20-3.40); Lymphocytes % (auto) 5.5 %; Mean Corpuscular Hemoglobin 28.3 pg (25.0-34.0); Mean Corpuscular Hgb Conc 30.9 g/dL (32.0-36.0); Mean Corpuscular Volume 91.5 fL (80.0-100.0); Mean Platelet Volume 9.7 fL (9.4-12.4); Monocytes # (auto) 0.62 K/uL (0.11-0.59); Monocytes % (auto) 4.9 %; Neutrophils # (auto) 11.18 K/uL (1.40-6.50); Neutrophils % (auto) 88.3 %; Platelet Count 208 K/uL (130-400); RDW Coefficient of Variation 13.2 % (11.5-14.5); Red Blood Count 3.89 M/uL (4.20-5.40); White Blood Count 12.65 K/ul (4.8-10.8)
--- NOTE | 2025-02-12 11:28 | Emergency Department Note ---
Impression & Plan SVT (supraventricular tachycardia), Sepsis, Urinary tract infection, Abdominal pain ED Provider Note NAME: NAYELI GUERRERO AGE: 69 SEX: F : 1955 ARRIVES VIA: Ambulance INFORMANT: Patient, ED PROVIDER(S): Kodak Velázquez DO CHIEF COMPLAINT: Not feeling well HPI: The patient is a 69-year-old female who presented to the emergency department for an evaluation of not feeling well. The patient states that she has a history of a nephrostomy tube in the left. She was seen in our facility in November because the nephrostomy tube was not working. She was sent back to [place] for this. The patient comes in today because she is not feeling well. She notices flank pain as well as suprapubic pain. She was noted to have a fever prior to arrival. ROS: See above HPI for pertinent positives & negatives. A total of 10 systems reviewed and were otherwise negative. PAST MEDICAL HISTORY: See Below PAST SURGICAL HISTORY: See Below FAMILY HISTORY: See Below SOCIAL HISTORY: See Below HOME MEDICATIONS: See Below ALLERGIES: See Below VITALS: See Below PHYSICAL EXAMINATION: GENERAL: The patient is awake and alert. She is somewhat anxious. EYES: The conjunctivae are clear. The pupils are round and reactive. EARS, NOSE, MOUTH AND THROAT: The nose is without any evidence of any deformity. Mucous membranes are dry. NECK: The neck is nontender and supple. RESPIRATORY: Normal respiratory effort is noted there is no evidence of wheezing rhonchi or rales CARDIOVASCULAR: Tachycardic and irregular heart sounds were noted to auscultation. Murmur was difficult to auscultate. GASTROINTESTINAL: The abdomen was distended. There is suprapubic tenderness to palpation but no guarding or rigidity. BACK: Nephrostomy tube was noted in the left flank. There was urine noted in the bag. MUSCULOSKELETAL/EXTREMITIES: There is no evidence of gross deformity full range of motion is noted in the hips and shoulders. SKIN: Skin is warm and dry. Trace pedal edema was noted bilaterally. NEUROLOGIC: Patient is awake alert and oriented to person place and situation. Strength was symmetric. MEDICAL DECISION MAKING: The patient is a 69-year-old female who presented to the emergency department for an evaluation of not feeling well as well as abdominal pain. The patient has a history of a nephrostomy tube. This was replaced recently. She was found to have a fever upon arrival. A septic workup was undertaken. The patient was also found to be tachycardic. Her monitor did appear to be consistent with SVT. She was treated with adenosine. She was given IV fluids and IV antibiotics. I discussed the patient's laboratory and radiographic studies with her. She was reevaluated multiple times. I do feel this is most likely consistent with sepsis from a urinary source. She was treated with IV antibiotics. I discussed the patient's laboratory and radiographic studies with the on-call [facility]. They have agreed to evaluate the patient in the emergency department for further management and disposition. Triage Nursing notes reviewed. Prior medical records reviewed Vital Signs: reviewed and remarkable for no significant abnormalities Differential diagnosis: Etiologies such as appendicitis, diverticulitis, obstruction, inflammatory bowel disease, renal colic, PUD, biliary pathology, pancreatitis, mesenteric ischemia, aortic pathology, infections, genitourinary, UTI, perforated viscus, as well as others were entertained. ER treatment provided: See below Diagnostics interpreted by me: ECG: EKG was obtained in the emergency department. My interpretation is SVT at [address] depressions were noted. There were no PVCs. This was compared to a tracing from November 19, 2024. SVT has replaced sinus tachycardia and the ST segment abnormalities do appear to be new compared to previous tracing. A second EKG was obtained after administration of adenosine. My interpretation is sinus tachycardia at 126 bpm. There is no PVCs noted. Resolution of the previously noted ST depressions was noted. Cardiac Monitoring: An order was placed for continuous cardiac monitoring. The monitor shows a rate of 90 bpm with sinus rhythm. Laboratory studies: As stated above and show below. Imaging studies: See below. Radiographic imaging was reviewed by myself Consultation(s): I discussed this case with Radha who is on-call for the [facility]. ED COURSE: Procedures: none Critical Care: I have personally spent greater than 45 minutes of critical care time in the direct management of this patient. This includes bedside care, interpretation of diagnostic studies, and testing, discussion with consultants, patient, and family members, and other required patient management activities. This 45 minutes is in excess of all separately billable procedures. Past Med/Surg History Problem List (Updated 02/12/25 @ 16:04 by Kodak Velázquez DO) Abdominal pain (Acute) Urinary tract infection (Acute) Sepsis (Acute) Sepsis SVT (supraventricular tachycardia) (Acute) Hydronephrosis, left Complicated UTI (urinary tract infection) (Acute) Metabolic acidosis, normal anion gap (NAG) (Acute) Colon cancer (Chronic) H/O ileostomy (Chronic) Hypertension On home oxygen therapy COPD (chronic obstructive pulmonary disease) CALI (obstructive sleep apnea) Chronic respiratory failure with hypoxia Bilateral nephrolithiasis Renal lesion Chronic diarrhea Chronic anemia (Acute) CKD (chronic kidney disease), stage IV Eosinophilia Hyperlipidemia Renal cyst Bipolar disorder Medical History Sleep apnea No device since device recalled History of COVID-19 x2, most recent 10/2022- symptoms resolved Chronic obstructive pulmonary disease 2L NC HS Nausea and vomiting History of TIA (transient ischemic attack) Remote hx, "when I was younger" Takotsubo cardiomyopathy 2015 with return to normal LV function Recurrent UTI CKD (chronic kidney disease), stage III Stage 3 Follows with S nephrology ([place]) Kidney stone Mood disorder Sinus tachycardia No recent issues Diarrhea Flank pain with history of urolithiasis Recurrent falls Diabetes mellitus, type 2 Morbid obesity with BMI of 40.0-44.9, adult History of colon cancer 2012 > s/p surgery Chronic back pain GERD (gastroesophageal reflux disease) Anxiety Chronic headaches Deep vein thrombosis LLE (remote hx), was treated with blood thinners Myocardial Infarction 2016 > cardiac cath, normal coronary anatomy without coronary obstruction Poor historian Depression Asthma HTN (hypertension) Surgical History History of anesthesia reaction Patient had cysto/stent (10/11/21) for kidney stone at [facility] with MAC. "Patient awake and comfortable"/no issues noted per post-op anesthesia progress note. Per 10/16/21 critical care note, patient developed acute metabolic encephalopathy- multifactorial and subsequently intubated 10/17/21 d/t "altered MS" > extubated 10/19/21 History of cystoscopy s/p L ureteral stent 10/2021 followed by lithotripsy, stone extraction and stent exchange 11/2021 History of esophageal dilatation History of colonoscopy History of esophagogastroduodenoscopy (EGD) History of lithotripsy History of bilateral cataract extraction History of blepharoplasty History of cardiac cath 2018 > no stents History of kidney surgery at age 9 yrs "something was wrong and had to fix it" History of appendectomy History of tooth extraction H/O hand surgery Right Hx of cholecystectomy History of total abdominal hysterectomy and bilateral salpingo-oophorectomy History of colectomy Family History Other Breast cancer Colorectal cancer No family history of adverse response to anesthesia Social History Smoking Status: Never smoker Second Hand Exposure: Yes (IN THE PAST); Do You Dip or Chew Tobacco: No; Hx Alcohol Use: No Hx Substance Use: No Preferred Language: Croatian Communication Ability: Effective Visual Impairment: No Limitations Hearing Ability: Normal Satellite Tv Technician Installer Required: No Beliefs That Will Affect Care: None marital status: Current Living Situation: Alone Current Living Situation Comment: LIVES IN APARTMENTS/ LIVES UPSTAIRS IN ANOTHER APARTMENT Feels Safe at Home: Yes Assistive Devices: Bedside Commode, Cane, Walker and Wheelchair Allergies Allergies Allergy/AdvReac Type Severity Reaction Status Date / Time fentanyl Allergy Severe itching/felt Verified 12/14/23 10:15 like throat closing salicylates Allergy Severe SHORTNESS Verified 02/12/25 13:19 OF BREATH Iodinated Contrast Media Allergy Intermediate EYES Verified 12/14/23 10:15 SWELLING/Hives amoxicillin [From Augmentin] Allergy Mild Rash Verified 12/14/23 10:15 aspirin Allergy Mild FACIAL Verified 02/12/25 13:19 SWELLING clavulanic acid Allergy Mild Rash Verified 12/14/23 10:15 [From Augmentin] hydromorphone Allergy Mild RASH/ITCHIN Verified 12/14/23 10:15 G Opioids - Morphine Analogues Allergy Unknown Unknown - Unverified 02/12/25 13:19 On file w/ [facility] Tetracyclic Antidepressants Allergy Unknown Unknown - Unverified 02/12/25 13:19 On file w/ [facility] meperidine AdvReac Intermediate ITCH Verified 02/12/25 13:19 morphine AdvReac Intermediate ITCH Verified 02/12/25 13:19 tramadol AdvReac Mild itch Verified 12/14/23 10:15 Home Meds Home Medications Medication Instructions Recorded Confirmed atorvastatin 40 mg tablet (Lipitor) 40 mg PO QAM 10/03/18 05/06/25 pantoprazole 40 mg tablet,delayed 40 mg PO BID 07/12/18 02/12/25 release (Protonix) riboflavin (vitamin B2) 400 mg 400 mg PO QAM 07/12/18 02/12/25 tablet cholecalciferol (vitamin D3) 50 2,000 unit PO QAM 05/16/19 02/12/25 mcg (2,000 unit) capsule (Vitamin D3) oxcarbazepine 300 mg tablet 300 mg PO BID 12/22/21 02/12/25 magnesium oxide 400 mg (241.3 mg 400 mg PO DAILY 11/02/22 02/12/25 magnesium) tablet metoprolol succinate 25 mg 25 mg PO BID 12/14/23 02/12/25 tablet,extended release 24 hr hydroxyzine HCl 25 mg tablet 25 mg PO HS 02/12/25 02/12/25 oxybutynin chloride 5 mg tablet 5 mg PO QAM 02/12/25 02/12/25 Previous Rx's Medication Instructions Recorded loperamide 2 mg capsule 2 mg PO TID PRN diarrhea #30 caps 01/18/22 acetaminophen 325 mg tablet 650 mg (2 x 325 mg) PO Q8H PRN 11/09/22 fever or pain #60 tabs cyanocobalamin (vitamin B-12) 100 100 mcg PO QAM #30 tabs 11/09/22 mcg tablet (Vitamin B-12) midodrine 5 mg tablet 5 mg PO TID #90 tabs 04/21/23 tamsulosin 0.4 mg capsule 0.4 mg PO DAILY #30 caps 12/21/24 Results & Data (ED) Vital Signs Vital Signs - 24 hr 02/12/25 10:53 02/12/25 11:01 02/12/25 11:01 Temperature 37.6 C H Temperature Source Oral Pulse Rate 161 H Pulse Rate [Apical] Pulse Rate from SpO2 Sensor Respiratory Rate 22 Respiratory Effort / Characteristics Non-Labored Respiratory Depth Normal Respiratory Pattern Regular Blood Pressure 127/90 127/90 127/90 Blood Pressure [Left Arm] Blood Pressure Mean 102 107 107 Blood Pressure Mean [Left Arm] Blood Pressure Position Semi-fowlers Pulse Oximetry 94 Oxygen Delivery Method Room Air Sepsis Recent Fever Within 48 Hours Yes Sepsis New/Unexplained Change in Mental Status No Sepsis Action Taken by Nursing Physician Notified 02/12/25 11:03 02/12/25 11:04 02/12/25 11:11 Temperature Temperature Source Pulse Rate 163 H 160 H Pulse Rate [Apical] Pulse Rate from SpO2 Sensor 163 H Respiratory Rate 14 Respiratory Effort / Characteristics Respiratory Depth Respiratory Pattern Blood Pressure Blood Pressure [Left Arm] Blood Pressure Mean Blood Pressure Mean [Left Arm] Blood Pressure Position Pulse Oximetry 94 94 Oxygen Delivery Method Room Air Room Air Sepsis Recent Fever Within 48 Hours Sepsis New/Unexplained Change in Mental Status Sepsis Action Taken by Nursing 02/12/25 11:19 02/12/25 11:19 02/12/25 11:19 Temperature Temperature Source Pulse Rate Pulse Rate [Apical] Pulse Rate from SpO2 Sensor Respiratory Rate Respiratory Effort / Characteristics Respiratory Depth Respiratory Pattern Blood Pressure 124/98 124/98 124/98 Blood Pressure [Left Arm] Blood Pressure Mean 110 110 110 Blood Pressure Mean [Left Arm] Blood Pressure Position Pulse Oximetry Oxygen Delivery Method Sepsis Recent Fever Within 48 Hours Sepsis New/Unexplained Change in Mental Status Sepsis Action Taken by Nursing 02/12/25 11:19 02/12/25 11:30 02/12/25 11:31 Temperature Temperature Source Pulse Rate 115 H Pulse Rate [Apical] Pulse Rate from SpO2 Sensor 116 H Respiratory Rate 15 Respiratory Effort / Characteristics Respiratory Depth Respiratory Pattern Blood Pressure 124/98 140/103 H Blood Pressure [Left Arm] Blood Pressure Mean 110 122 Blood Pressure Mean [Left Arm] Blood Pressure Position Pulse Oximetry 94 Oxygen Delivery Method Room Air Sepsis Recent Fever Within 48 Hours Sepsis New/Unexplained Change in Mental Status Sepsis Action Taken by Nursing 02/12/25 11:54 02/12/25 12:01 02/12/25 12:01 Temperature Temperature Source Pulse Rate 114 H Pulse Rate [Apical] Pulse Rate from SpO2 Sensor 113 H Respiratory Rate 23 Respiratory Effort / Characteristics Respiratory Depth Respiratory Pattern Blood Pressure 132/90 132/90 Blood Pressure [Left Arm] Blood Pressure Mean 105 105 Blood Pressure Mean [Left Arm] Blood Pressure Position Pulse Oximetry 96 Oxygen Delivery Method Room Air Sepsis Recent Fever Within 48 Hours Sepsis New/Unexplained Change in Mental Status Sepsis Action Taken by Nursing 02/12/25 12:01 02/12/25 12:27 02/12/25 12:30 Temperature Temperature Source Pulse Rate 105 H 104 H Pulse Rate [Apical] Pulse Rate from SpO2 Sensor 105 H 104 H Respiratory Rate 27 H 14 Respiratory Effort / Characteristics Respiratory Depth Respiratory Pattern Blood Pressure 132/90 Blood Pressure [Left Arm] Blood Pressure Mean 105 Blood Pressure Mean [Left Arm] Blood Pressure Position Pulse Oximetry 96 95 Oxygen Delivery Method Room Air Room Air Sepsis Recent Fever Within 48 Hours Sepsis New/Unexplained Change in Mental Status Sepsis Action Taken by Nursing 02/12/25 13:12 02/12/25 13:15 02/12/25 13:30 Temperature 37.3 C Temperature Source Oral Pulse Rate 103 H 103 H Pulse Rate [Apical] Pulse Rate from SpO2 Sensor 103 H 102 H Respiratory Rate 15 18 Respiratory Effort / Characteristics Respiratory Depth Respiratory Pattern Blood Pressure Blood Pressure [Left Arm] Blood Pressure Mean Blood Pressure Mean [Left Arm] Blood Pressure Position Pulse Oximetry 95 96 Oxygen Delivery Method Room Air Room Air Sepsis Recent Fever Within 48 Hours Sepsis New/Unexplained Change in Mental Status Sepsis Action Taken by Nursing 02/12/25 13:31 02/12/25 13:31 02/12/25 13:31 Temperature Temperature Source Pulse Rate Pulse Rate [Apical] Pulse Rate from SpO2 Sensor Respiratory Rate Respiratory Effort / Characteristics Respiratory Depth Respiratory Pattern Blood Pressure 104/80 104/80 104/80 Blood Pressure [Left Arm] Blood Pressure Mean 94 94 94 Blood Pressure Mean [Left Arm] Blood Pressure Position Pulse Oximetry Oxygen Delivery Method Room Air Sepsis Recent Fever Within 48 Hours Sepsis New/Unexplained Change in Mental Status Sepsis Action Taken by Nursing 02/12/25 13:42 02/12/25 14:00 02/12/25 14:00 Temperature Temperature Source Pulse Rate 98 H 96 H Pulse Rate [Apical] Pulse Rate from SpO2 Sensor 98 H 95 H Respiratory Rate 22 19 Respiratory Effort / Characteristics Respiratory Depth Respiratory Pattern Blood Pressure 120/82 Blood Pressure [Left Arm] Blood Pressure Mean 90 Blood Pressure Mean [Left Arm] Blood Pressure Position Pulse Oximetry 93 95 Oxygen Delivery Method Sepsis Recent Fever Within 48 Hours Sepsis New/Unexplained Change in Mental Status Sepsis Action Taken by Nursing 02/12/25 14:00 02/12/25 14:24 02/12/25 14:30 Temperature Temperature Source Pulse Rate 91 H Pulse Rate [Apical] Pulse Rate from SpO2 Sensor 91 H Respiratory Rate 20 Respiratory Effort / Characteristics Respiratory Depth Respiratory Pattern Blood Pressure 120/82 107/85 Blood Pressure [Left Arm] Blood Pressure Mean 90 97 Blood Pressure Mean [Left Arm] Blood Pressure Position Pulse Oximetry 96 Oxygen Delivery Method Sepsis Recent Fever Within 48 Hours Sepsis New/Unexplained Change in Mental Status Sepsis Action Taken by Nursing 02/12/25 14:30 02/12/25 14:36 02/12/25 15:00 Temperature Temperature Source Pulse Rate 96 H Pulse Rate [Apical] Pulse Rate from SpO2 Sensor 96 H Respiratory Rate 22 Respiratory Effort / Characteristics Respiratory Depth Respiratory Pattern Blood Pressure 107/85 98/61 L Blood Pressure [Left Arm] Blood Pressure Mean 97 79 Blood Pressure Mean [Left Arm] Blood Pressure Position Pulse Oximetry 96 Oxygen Delivery Method Sepsis Recent Fever Within 48 Hours Sepsis New/Unexplained Change in Mental Status Sepsis Action Taken by Nursing 02/12/25 15:00 02/12/25 15:00 02/12/25 15:00 Temperature Temperature Source Pulse Rate 91 H Pulse Rate [Apical] Pulse Rate from SpO2 Sensor 91 H Respiratory Rate 19 Respiratory Effort / Characteristics Respiratory Depth Respiratory Pattern Blood Pressure 98/61 L 98/61 L Blood Pressure [Left Arm] Blood Pressure Mean 79 79 Blood Pressure Mean [Left Arm] Blood Pressure Position Pulse Oximetry 95 Oxygen Delivery Method Sepsis Recent Fever Within 48 Hours Sepsis New/Unexplained Change in Mental Status Sepsis Action Taken by Nursing 02/12/25 15:17 02/12/25 15:43 Temperature Temperature Source Pulse Rate 94 H Pulse Rate [Apical] 90 Pulse Rate from SpO2 Sensor Respiratory Rate 24 Respiratory Effort / Characteristics Non-Labored Respiratory Depth Normal Respiratory Pattern Regular Blood Pressure Blood Pressure [Left Arm] 119/75 Blood Pressure Mean Blood Pressure Mean [Left Arm] 89 Blood Pressure Position Pulse Oximetry 99 Oxygen Delivery Method Room Air Sepsis Recent Fever Within 48 Hours Sepsis New/Unexplained Change in Mental Status Sepsis Action Taken by [facility] Medications Current Medication List: was personally reviewed by me Laboratory Data Attestation: I reviewed the patient's lab results. 02/12/25 11:09 02/12/25 11:09 Lab Results 02/12/25 02/12/25 02/12/25 Range/Units 11:09 11:49 11:53 WBC 12.65 H (4.8-10.8) K/ul RBC 3.89 L (4.20-5.40) M/uL Hgb 11.0 L (12.0-16.0) g/dl Hct 35.6 L (37.0-47.0) % MCV 91.5 (80.0-100.0) fL MCH 28.3 (25.0-34.0) pg MCHC 30.9 L (32.0-36.0) g/dL RDW Std Deviation 44.0 (36.4-46.3) fL RDW Coeff of Teresa 13.2 (11.5-14.5) % Plt Count 208 (130-400) K/uL MPV 9.7 (9.4-12.4) fL Immature Gran % (Auto) 0.5 % Neut % (Auto) 88.3 % Lymph % (Auto) 5.5 % Mckean % (Auto) 4.9 % Eos % (Auto) 0.5 % Baso % (Auto) 0.3 % Neut # (Auto) 11.18 H (1.40-6.50) K/uL Lymph # (Auto) 0.69 L (1.20-3.40) K/uL Mckean # (Auto) 0.62 H (0.11-0.59) K/uL Eos # (Auto) 0.06 (0.00-0.50) K/uL Baso # (Auto) 0.04 (0.00-0.20) K/uL Immature Gran # (Auto) 0.06 (0.01-0.20) K/uL PT 10.5 (9.0-12.0) Seconds INR 1.0 (0.9-1.1) APTT 24 (21-31) Seconds PTT Ratio 0.9 VBG pH 7.26 L (7.36-7.41) VBG pCO2 31 L (38-50) mmHg VBG pO2 42 mmHg VBG HCO3 14 mmol/L VBG O2 Saturation 72.9 % VBG Base Excess -11.9 mEq/L Sodium 141 (136-145) mmol/L Potassium 4.1 (3.5-5.1) mmol/L Chloride 116 H (98-107) mmol/L Carbon Dioxide 15 L (21-32) mmol/L Anion Gap 10 (3-11) BUN 30 H (6-23) mg/dl Creatinine 2.43 H (0.6-1.2) mg/dl Est Cr Clr Drug Dosing 19.2 ml/min eGFR 20.75 BUN/Creatinine Ratio 12.3 (10-20) Glucose 167 H (70-99(Fasting)) mg/dl Lactate 1.5 (0.4-2.0) mmol/L Calcium 9.3 (8.6-10.3) mg/dl Magnesium 1.6 L (1.7-2.4) mg/dl Total Bilirubin 0.5 (0.2-1.0) mg/dl Direct Bilirubin 0.1 (0-0.2) mg/dl AST 16 (13-39) U/L ALT 13 (7-52) U/L Alkaline Phosphatase 135 H (34-104) U/L Troponin I High Sens 5.7 (0-14) pg/ml Total Protein 7.6 (6.0-8.3) gm/dl Albumin 4.0 (3.4-5.0) gm/dl Procalcitonin 0.56 H (0-0.5) ng/ml Random Cortisol 30.18 mcg/dl Administered Medications Magnesium Sulfate/Dextrose (Magnesium Sulfate / D5w) 1 gm in 100 mls @ 50 mls/hr IV ONE ONE Stop: 02/12/25 16:09 Last Admin: 02/12/25 15:27 Dose: 50 mls/hr Documented By: CHAKA Ondansetron HCl (Ondansetron Inj 2 Mg/Ml 2 Ml Vial) 4 mg IV Q6H PRN PRN Reason: Nausea And Vomiting Stop: 03/14/25 15:01 Last Admin: 02/12/25 15:27 Dose: 4 mg Documented By: CHAKA Discontinued Medications Adenosine (Adenosine Iv Soln 3 Mg/Ml 2 Ml Vial) Confirm Administered Dose 6 mg IV .STK-MED ONE Stop: 02/12/25 11:11 Last Admin: 02/12/25 11:47 Dose: Not Given Documented By: CHAKA Adenosine (Adenosine Iv Soln 3 Mg/Ml 2 Ml Vial) 6 mg IV NOW STA Stop: 02/12/25 11:12 Last Admin: 02/12/25 11:15 Dose: 6 mg Documented By: CHAKA Sodium Chloride (Nss) 1,000 mls @ 999 mls/hr IV .Q1H1M ONE Stop: 02/12/25 12:11 Last Infusion: 02/12/25 12:24 Dose: Infused Documented By: Admin: 02/12/25 11:10 Dose: 999 mls/hr Documented By: CHAKA Acetaminophen (Ofirmev) 1,000 mg in 100 mls @ 400 mls/hr IV NOW STA Stop: 02/12/25 11:25 Last Infusion: 02/12/25 12:24 Dose: Infused Documented By: Admin: 02/12/25 11:52 Dose: 400 mls/hr Documented By: CHAKA Cefepime HCl (Maxipime 2000mg) 2,000 mg in 20 mls @ 5 mls/min IV NOW STA; Protocol Stop: 02/12/25 11:17 Last Admin: 02/12/25 11:52 Dose: 5 mls/min Documented By: CHAKA Magnesium Sulfate/Dextrose (Magnesium Sulfate / D5w) 1 gm in 100 mls @ 100 mls/hr IV NOW STA Stop: 02/12/25 13:36 Last Infusion: 02/12/25 14:56 Dose: Infused Documented By: Admin: 02/12/25 13:24 Dose: 100 mls/hr Documented By: LCOVER Sodium Chloride (Nss) 500 mls @ 999 mls/hr IV .Q31M ONE Stop: 02/12/25 13:07 Last Infusion: 02/12/25 14:57 Dose: Infused Documented By: Admin: 02/12/25 13:22 Dose: 999 mls/hr Documented By: CLOVER Lactated Ringer's (Lr) 500 mls @ 999 mls/hr IV .Q31M ONE Stop: 02/12/25 13:07 Last Infusion: 02/12/25 14:56 Dose: Infused Documented By: Admin: 02/12/25 13:26 Dose: 999 mls/hr Documented By: CLOVER Imaging Data Attestation: I personally reviewed and interpreted this imaging study as follows: My Impression: CT of the abdomen pelvis was obtained in the emergency department. My interpretation is no free air or definite bowel obstruction, final report below. Radiologist's Impression: Chest X-Ray 02/12/25 11:11 XR chest 1V portable CLINICAL HISTORY: Sepsis COMPARISON STUDY: 11/19/2024 FINDINGS: Heart size and pulmonary vasculature are normal. No effusion, consolidation, or pneumothorax. Stable moderate hiatal hernia. IMPRESSION: No acute findings. ACT 112: Negative or not required by law. Electronically signed by: Mumtaz Park M.D. 02/12/2025 11:41 AM Abdomen/Pelvis CT 02/12/25 11:15 CT OF THE ABDOMEN AND PELVIS WITHOUT CONTRAST CLINICAL HISTORY: Flank pain. COMPARISON STUDY: CT of the abdomen and pelvis November 19, 2024. TECHNIQUE: Axial images of the abdomen and pelvis were obtained without IV contrast. Images were reviewed in the axial, sagittal, and coronal planes. Automated exposure control was utilized for the study. A dose lowering technique was utilized adhering to the principles of ALARA. FINDINGS: Several nodules within the lower lungs are unchanged from earlier exams. Mild right lower lobe groundglass opacities are present. Moderate sized hiatal hernia is unchanged. No pneumatosis, free air or portal venous gas is present. Left hydronephrosis has resolved following placement of a percutaneous nephrostomy. 2.9 cm left upper pole hypodensity previously measured 7.5 cm. Left renal atrophy is again noted. Bilateral renal calculi measure up to 7 mm. There are no ureteral calculi. Bilateral perinephric stranding and urothelial thickening is again noted. As shown on prior exam. Bladder wall thickening with adjacent stranding is also unchanged. Evaluation of the remainder of the abdomen and pelvis is suboptimal on this unenhanced exam. There is no biliary ductal dilatation status post cholecystectomy. Spleen, adrenal glands and pancreas are unremarkable. There is no evidence for a bowel obstruction. There are postoperative findings consistent with a sigmoid resection. There is no lymphadenopathy. There are no fluid collections. IMPRESSION: 1. Resolution of left hydronephrosis following interval placement of a percutaneous nephrostomy. 2. Persistent bilateral urothelial thickening and bilateral wall thickening. This is likely chronic although could be correlated with urinalysis. 3. Bilateral nephrolithiasis. No ureteral calculi. 4. Minimal right lower lobe groundglass opacity which favors a mild infectious process. ACT 112: Negative or not required by law. Electronically signed by: Abdirashid Motta M.D. 02/12/2025 12:30 PM Discharge Plan Visit Data Chief Complaint: Illness Stated Complaint: AB PAIN, BLADDER PAIN ED Provider: Kodak Velázquez Discharge Problem: SVT (supraventricular tachycardia), Sepsis, Urinary tract infection, Abdominal pain Patient Disposition: Being Evaluated by Hospitalist Condition: Good Forms Stand Alone Forms: My [facility] Risk Management Prescriptions Prescriptions: No Action tamsulosin 0.4 mg capsule 0.4 mg PO DAILY Qty: 30 3RF metoprolol succinate 25 mg tablet extended release 24 hr 25 mg PO BID atorvastatin [Lipitor] 40 mg Tablet 40 mg PO QAM pantoprazole [Protonix] 40 mg Tablet,Delayed Release (Dr/Ec) 40 mg PO BID riboflavin (vitamin B2) 400 mg Tablet 400 mg PO QAM cholecalciferol (vitamin D3) [Vitamin D3] 2,000 unit Capsule 2,000 unit PO QAM Patient Comments: Patient has not taken medications for a while (05/25) oxcarbazepine 300 mg tablet 300 mg PO BID Patient Comments: unsure if taking now magnesium oxide 400 mg (241.3 mg magnesium) tablet 400 mg PO DAILY acetaminophen 325 mg Tablet 650 mg PO Q8H PRN (Reason: fever or pain) Qty: 60 0RF cyanocobalamin (vitamin B-12) [Vitamin B-12] 100 mcg Tablet 100 mcg PO QAM Qty: 30 0RF midodrine 5 mg tablet 5 mg PO TID Qty: 90 0RF Rx Instructions: 8am, 12noon, 5pm loperamide 2 mg Capsule 2 mg PO TID PRN (Reason: diarrhea) Qty: 30 0RF hydroxyzine HCl 25 mg tablet 25 mg PO HS oxybutynin chloride 5 mg tablet 5 mg PO QAM Referrals Referrals: Lo Chand DO [Primary Care Provider] -
--- NOTE | 2025-02-12 11:43 | XRay Report ---
XR chest 1V portable CLINICAL HISTORY: Sepsis COMPARISON STUDY: 11/19/2024 FINDINGS: Heart size and pulmonary vasculature are normal. No effusion, consolidation, or pneumothora x. Stable moderate hiatal hernia. IMPRESSION: No acute findings. ACT 112: Negative or not required by law. Electronically signed by: Mumtaz Park M.D. 02/12/2025 11:41 AM
[2025-02-12 11:46] LABS: BUN Creatinine Ratio 12.3 (10-20); Bilirubin Direct 0.1 mg/dl (0-0.2); Bilirubin,Total 0.5 mg/dl (0.2-1.0); Calcium 9.3 mg/dl (8.6-10.3); Creatinine Clr Calc Pharmacy 19.2 ml/min; Magnesium 1.6 mg/dl (1.7-2.4); Potassium 4.1 mmol/L (3.5-5.1); Total Protein 7.6 gm/dl (6.0-8.3)
[2025-02-12] MEDS: ADENOSINE IV SOLN 3 MG/ML 2 ML VIAL IV ONE (11:47)
[2025-02-12 11:52] LABS: Troponin I High Sensitivity 5.7 pg/ml (0-14)
[2025-02-12] MEDS: ACETAMINOPHEN 1,000 MG/100 ML VIAL IV STA (11:52)
[2025-02-12] MEDS: CEFEPIME 2000MG 2,000 MG/20 ML SYR IV STA (11:52)
[2025-02-12 12:03] LABS: Base Excess VBG -11.9 mEq/L; HCO3 VBG 14 mmol/L; Oxygen Saturation VBG 72.9 %; PCO2 VBG 31 mmHg (38-50); PO2 VBG 42 mmHg; pH VBG 7.26 (7.36-7.41)
[2025-02-12 12:06] LABS: Partial Thromboplastin Ratio 0.9; Partial Thromboplastin Time 24 Seconds (21-31); Prothrombin Time 10.5 Seconds (9.0-12.0)
--- NOTE | 2025-02-12 12:33 | CT Scan Report ---
CT OF THE ABDOMEN AND PELVIS WITHOUT CONTRAST CLINICAL HISTORY: Flank pain. COMPARISON STUDY: CT of the abdomen and pelvis November 19, 2024. TECHNIQUE: Axial images of the abdomen and pelvis were obtained without IV contrast. Images were revi ewed in the axial, sagittal, and coronal planes. Automated exposure control was utilized for the ascencion dy. A dose lowering technique was utilized adhering to the principles of ALARA. FINDINGS: Several nodules within the lower lungs are unchanged from earlier exams. Mild right lower l obe groundglass opacities are present. Moderate sized hiatal hernia is unchanged. No pneumatosis, goldie e air or portal venous gas is present. Left hydronephrosis has resolved following placement of a perc utaneous nephrostomy. 2.9 cm left upper pole hypodensity previously measured 7.5 cm. Left renal atrop hy is again noted. Bilateral renal calculi measure up to 7 mm. There are no ureteral calculi. Bilater al perinephric stranding and urothelial thickening is again noted. As shown on prior exam. Bladder wa ll thickening with adjacent stranding is also unchanged. Evaluation of the remainder of the abdomen a nd pelvis is suboptimal on this unenhanced exam. There is no biliary ductal dilatation status post ch olecystectomy. Spleen, adrenal glands and pancreas are unremarkable. There is no evidence for a bowel obstruction. There are postoperative findings consistent with a sigmoid resection. There is no lymph adenopathy. There are no fluid collections. IMPRESSION: 1. Resolution of left hydronephrosis following interval placement of a percutaneous nephrostomy. 2. Persistent bilateral urothelial thickening and bilateral wall thickening. This is likely chronic a lthough could be correlated with urinalysis. 3. Bilateral nephrolithiasis. No ureteral calculi. 4. Minimal right lower lobe groundglass opacity which favors a mild infectious process. ACT 112: Negative or not required by law. Electronically signed by: Abdirashid Motta M.D. 02/12/2025 12:30 PM
[2025-02-12] MEDS: SODIUM CHLORIDE 0.9% 500 ML IV ONE (13:22)
[2025-02-12] MEDS: MAGNESIUM SULFATE / D5W 1 GM/100 ML BAG IV STA (13:24)
[2025-02-12] MEDS: LACTATED RINGER'S 500 ML IV ONE (13:26)
--- NOTE | 2025-02-12 14:58 | Cardiology Consultation ---
Date of Consultation February 12, 2025 Assessment & Plan (1) Sepsis: (2) Complicated UTI (urinary tract infection): (3) SVT (supraventricular tachycardia): (4) Sinus tachycardia: Plan Complex 69-year-old female who was in her usual state of health until Tuesday when she developed recurrent dysuria (chronic left sided nephrostomy tube) followed by lower abdominal pain, nausea, vomiting, fevers and chills early this morning. Patient unable to take AM medications, subsequently developing tachypalpitations with probable adenosine responsive SVT observed in the ER. High-sensitivity troponin negative x 1 (5.7 pg/mL). Hypomagnesemia observed with a magnesium of 1.6, receiving one gram of magnesium thus far. Potassium was normal. Recent TSH normal as an outpatient on 01/23/2025. 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 Follow-up echo revealing return to normal LV systolic function. Coronary angiography normal in 2015. Recommendations: * Resume/continue beta-velma therapy with metoprolol succinate 25 mg twice a day * Maintain normomagnesemia and normokalemia * Refer for resting echocardiography * Treatment of underlying infectious process as per Hospitalist Service * Aspirin allergy Supervising Physician Co-Signing Physician Notes Attending Attestation: Case reviewed with the advanced practitioner. I have personally performed a history and physical examination on the patient. I have reviewed the advanced practitioner's documentation on the date of service referenced in note, and I agree with, and take responsibility for the plan of care. Subjective: Patient states subjective sensation of heart racing/palpitations si nce last night. At present improved. Exam: Cardiovascular regular rhythm, no murmur Data: Telemetry reviewed revealing narrow complex tachycardia 154 bpm when patient arrived today emergency department with noted abrupt decrease in heart rate at 11:16 AM. Findings consistent with supraventricular tachycardia with improvement post adenosine. Impression/ Plan: Resume metoprolol as noted. TTecho tomorrow. Abdias Harmon DO History of Present Illness Reason for Consultation: SVT Requesting Physician: Radha GANDARA Attending Physician: [facility] History of Present Illness Gabriella Nesbitt is a complex 69-year-old female who is being seen at the request of [facility]. Reason for consultation is SVT. Patient notes being in her usual state of health last on Tuesday. Tuesday she developed recurrent dysuria, concern for recurrent issues with left sided nephrostomy tubes (scheduled for exchange next Tuesday at [facility]). Notes contacting PCP with plans to present today for specimen collection. Last night patient awoke around 3:00 with nausea, vomiting, fevers and chills. She has chronic stable diarrhea. No sick contacts. Patient unable to take AM medications today. Also with palpitations, feeling her heart pounding in her ears and head. Patient presented to the [facility] ER via ambulance. EKG was interpreted as revealing SVT with ST depression, receiving 6 mg of IV adenosine with conversion to sinus tachycardia. High-sensitivity troponin negative x 1 at 5.7 pg/mL. Hypomagnesemia observed with a magnesium of 1.6. Potassium was normal. In the ER patient received IV fluid resuscitation along with IV magnesium, IV antibiotic (cefepime), and IV acetaminophen. At the time of my evaluation patient is resting comfortably in the ER room bed B6. Heart rate sinus at 86 bpm Problem List: History of stress-induced catecholamine mediated cardiomyopathy, May 2016, when hospitalied with multifactorial acute respiratory failure with associated hypertension and acute renal insufficiency. Return to normal LV function Normal coronary angiography in 2016 Prior ambulatory Zio monitoring documenting symptoms to occur in association with sinus tachycardia at a rate of 140 bpm with an isolated ventricular ectopic beat. Hypertension Dyslipidemia Stage IV chronic kidney disease Status post left nephrostomy tube with history of obstruction, pending future exchange at [facility] Obstructive sleep apnea, untreated Hypoventilation syndrome Chronic respiratory failure with hypoxia History of kidney stones Type 2 diabetes mellitus Chart history of TIA COPD Bronchiectasis Anemia Bipolar disorder Colon cancer status post colectomy GERD Large hiatal hernia Status post lithotripsy Status post esophageal dilatation Status post hysterectomy S/p cholecystectomy Status post cataract extraction Family History: Mother at 61 with breast cancer. Father at 61 with colon cancer. Social History. Never smoker. No smokeless tobacco. No alcohol. No illegal drug use. Allergies Allergy/AdvReac Type Severity Reaction Status Date / Time fentanyl Allergy Severe itching/felt Verified 12/14/23 10:15 like throat closing salicylates Allergy Severe SHORTNESS Verified 02/12/25 13:19 OF BREATH Iodinated Contrast Media Allergy Intermediate EYES Verified 12/14/23 10:15 SWELLING/Hives amoxicillin [From Augmentin] Allergy Mild Rash Verified 12/14/23 10:15 aspirin Allergy Mild FACIAL Verified 02/12/25 13:19 SWELLING clavulanic acid Allergy Mild Rash Verified 12/14/23 10:15 [From Augmentin] hydromorphone Allergy Mild RASH/ITCHIN Verified 12/14/23 10:15 G Opioids - Morphine Analogues Allergy Unknown Unknown - Unverified 02/12/25 13:19 On file w/ [facility] Tetracyclic Antidepressants Allergy Unknown Unknown - Unverified 02/12/25 13:19 On file / [facility] meperidine AdvReac Intermediate ITCH Verified 02/12/25 13:19 morphine AdvReac Intermediate ITCH Verified 02/12/25 13:19 tramadol AdvReac Mild itch Verified 12/14/23 10:15 Home Medications Medication Instructions Recorded Confirmed Type atorvastatin 40 mg tablet (Lipitor) 40 mg PO QAM 07/12/18 02/12/25 History pantoprazole 40 mg tablet,delayed 40 mg PO BID 07/12/18 02/12/25 History release (Protonix) riboflavin (vitamin B2) 400 mg 400 mg PO QAM 07/12/18 02/12/25 History tablet cholecalciferol (vitamin D3) 50 2,000 unit PO QAM 05/16/19 02/12/25 History mcg (2,000 unit) capsule (Vitamin D3) oxcarbazepine 300 mg tablet 300 mg PO BID 12/22/21 02/12/25 History loperamide 2 mg capsule 2 mg PO TID PRN diarrhea #30 caps 01/18/22 02/12/25 Rx magnesium oxide 400 mg (241.3 mg 400 mg PO DAILY 11/02/22 02/12/25 History magnesium) tablet acetaminophen 325 mg tablet 650 mg (2 x 325 mg) PO Q8H PRN 11/09/22 02/12/25 Rx fever or pain #60 tabs cyanocobalamin (vitamin B-12) 100 100 mcg PO QAM #30 tabs 11/09/22 02/12/25 Rx mcg tablet (Vitamin B-12) midodrine 5 mg tablet 5 mg PO TID #90 tabs 04/21/23 02/12/25 Rx metoprolol succinate 25 mg 25 mg PO BID 12/14/23 02/12/25 History tablet,extended release 24 hr tamsulosin 0.4 mg capsule 0.4 mg PO DAILY #30 caps 12/21/24 02/12/25 Rx hydroxyzine HCl 25 mg tablet 25 mg PO HS 02/12/25 02/12/25 History oxybutynin chloride 5 mg tablet 5 mg PO QAM 02/12/25 02/12/25 History Patient History Medical History (Updated 02/12/25 @ 16:44 by Ezekiel Sheth) Nephrostomy present Sleep apnea No device since device recalled History of COVID-19 x2, most recent 10/2022- symptoms resolved Chronic obstructive pulmonary disease 2L NC HS Nausea and vomiting History of TIA (transient ischemic attack) Remote hx, "when I was younger" Takotsubo cardiomyopathy 2015 with return to normal LV function Recurrent UTI CKD (chronic kidney disease), stage III Stage 3 Follows with [facility] nephrology ([place]) Kidney stone Mood disorder Sinus tachycardia No recent issues Diarrhea Flank pain with history of urolithiasis Recurrent falls Diabetes mellitus, type 2 Morbid obesity with BMI of 40.0-44.9, adult History of colon cancer 2012 > s/p surgery Chronic back pain GERD (gastroesophageal reflux disease) Anxiety Chronic headaches Deep vein thrombosis LLE (remote hx), was treated with blood thinners Myocardial Infarction 2016 > cardiac cath, normal coronary anatomy without coronary obstruction Poor historian Depression Asthma HTN (hypertension) Surgical History History of anesthesia reaction Patient had cysto/stent (10/11/21) for kidney stone at [facility] with MAC. "Patient awake and comfortable"/no issues noted per post-op anesthesia progress note. Per 10/16/21 critical care note, patient developed acute metabolic encephalopathy- multifactorial and subsequently intubated 10/17/21 d/t "altered MS" > extubated 10/19/21 History of cystoscopy s/p L ureteral stent 10/2021 followed by lithotripsy, stone extraction and stent exchange 11/2021 History of esophageal dilatation History of colonoscopy History of esophagogastroduodenoscopy (EGD) History of lithotripsy History of bilateral cataract extraction History of blepharoplasty History of cardiac cath 2017 > no stents History of kidney surgery at age 9 yrs "something was wrong and had to fix it" History of appendectomy History of tooth extraction H/O hand surgery Right Hx of cholecystectomy History of total abdominal hysterectomy and bilateral salpingo-oophorectomy History of colectomy Family History Other Breast cancer Colorectal cancer No family history of adverse response to anesthesia Social History Smoking Status: Never smoker Second Hand Exposure: Yes (IN THE PAST); Do You Dip or Chew Tobacco: No; Hx Alcohol Use: No Hx Substance Use: No Preferred Language: Wallisian Communication Ability: Effective Visual Impairment: No Limitations Hearing Ability: Normal Real Estate Instructor Required: No Beliefs That Will Affect Care: None marital status: Current Living Situation: Alone Current Living Situation Comment: LIVES IN APARTMENTS/ LIVES UPSTAIRS IN ANOTHER APARTMENT Feels Safe at Home: Yes Assistive Devices: Bedside Commode, Cane, Walker and Wheelchair Review of Systems Review of Systems: Complete Review of Systems is as stated above, negative, noncontributory Physical Exam Physical Exam: General: NAD. HENT: Normocephalic. Atraumatic. Eyes: Left upper eyelid sty PER. Conjunctiva pink, sclera clear. Neck: No overt JVD. Heart: Regular at 90 bpm. No murmur. Lungs: Diminished but clear to auscultation. Abdomen: +BS. Soft. No overt masses. Left sided nephrostomy Extremities: Lymphedema. No significant edema. No clubbing. No cyanosis. Results & Data Vital Signs (Past 12 Hours) Vital Signs Temp Pulse Resp BP Pulse Ox O2 Del Method 02/12/25 13:31 104/80 Room Air 02/12/25 13:30 37.3 C 02/12/25 13:15 103 H 18 96 Room Air 02/12/25 13:12 103 H 15 95 Room Air 02/12/25 12:30 104 H 14 95 Room Air 02/12/25 12:27 105 H 27 H 96 Room Air 02/12/25 12:01 132/90 02/12/25 12:01 132/90 02/12/25 12:01 132/90 02/12/25 11:54 114 H 23 96 Room Air 02/12/25 11:31 140/103 H 02/12/25 11:30 115 H 15 94 Room Air 02/12/25 11:19 124/98 02/12/25 11:19 124/98 02/12/25 11:19 124/98 02/12/25 11:19 124/98 02/12/25 11:11 94 Room Air 02/12/25 11:04 160 H 02/12/25 11:03 163 H 14 94 Room Air 02/12/25 11:01 127/90 02/12/25 11:01 12702/12/25 10:53 37.6 C H 161 H 22 94 Room Air Laboratory Results Cardiac Enzymes 02/12/25 Range/Units 11:09 AST 16 (13-39) U/L Troponin I High Sens 5.7 (0-14) pg/ml Coagulation 02/12/25 Range/Units 11:09 PT 10.5 (9.0-12.0) Seconds APTT 24 (21-31) Seconds CBC 02/12/25 Range/Units 11:09 WBC 12.65 H (4.8-10.8) K/ul RBC 3.89 L (4.20-5.40) M/uL Hgb 11.0 L (12.0-16.0) g/dl Hct 35.6 L (37.0-47.0) % Plt Count 208 (130-400) K/uL Neut # (Auto) 11.18 H (1.40-6.50) K/uL Lymph # (Auto) 0.69 L (1.20-3.40) K/uL [place] # (Auto) 0.62 H (0.11-0.59) K/uL Eos # (Auto) 0.06 (0.00-0.50) K/uL Baso # (Auto) 0.04 (0.00-0.20) K/uL Comprehensive Metabolic Panel 02/12/25 Range/Units 11:09 Sodium 141 (136-145) mmol/L Potassium 4.1 (3.5-5.1) mmol/L Chloride 116 H (98-107) mmol/L Carbon Dioxide 15 L (21-32) mmol/L BUN 30 H (6-23) mg/dl Creatinine 2.43 H (0.6-1.2) mg/dl Glucose 167 H (70-99(Fasting)) mg/dl Calcium 9.3 (8.6-10.3) mg/dl Direct Bilirubin 0.1 (0-0.2) mg/dl AST 16 (13-39) U/L ALT 13 (7-52) U/L Alkaline Phosphatase 135 H (34-104) U/L Total Protein 7.6 (6.0-8.3) gm/dl Albumin 4.0 (3.4-5.0) gm/dl Intake and Output 02/12/25 02/12/25 02/12/25 06:59 14:59 22:59 Intake Total 2940 / 2940 Output Total Balance 2930 / 2930 Intake: IV 2700 / 2700 Acetaminophen 1,000 mg In 100 100 / 100 ml @ 400 mls/hr IV NOW STA Rx#: [id number] Lactated Ringer's 500 ml @ 999 1000 / 1000 mls/hr IV .Q31M ONE Rx#: [id number] Magnesium Sulfate / D5w 1 gm In 100 / 100 100 ml @ 100 mls/hr IV NOW STA Rx#:[id number] Sodium Chloride 0.9% 500 ml @ 1500 / 1500 999 mls/hr IV .Q31M ONE Rx#: [id number] Oral 240 / 240 Output: Urine Amount (Catheter) Left Nephrostomy Other: Weight 78.5 kg Weight Measurement Method Built in [facility] Patient Weight 02/13/25 06:59 Weight 78.5 kg Diagnostic Findings January 03, 2024 TTE Interpretation Summary (as per Dr. Duff): The qualitative LV ejection fraction is 60-64% (normal). The left ventricular wall motion is normal. The left ventricular diastolic function is mildly abnormal (grade I). Mild aortic valve regurgitation is present. Compared to last available study changes are noted as follows: Mild aortic regurgitation now present. Initial EKG: Sinus tachycardia versus SVT, with anterior ST depression Second EKG: Sinus tachycardia Telemetry: Probable transient SVT. Currently sinus rhythm, sinus tachycardia
--- NOTE | 2025-02-12 15:24 | History & Physical Report ---
Date of Service February 12, 2025 Assessment & Plan (1) Sepsis: (2) Nephrostomy present: (3) Complicated UTI (urinary tract infection): Plan: Possible Pneumonia Admit to tele Patient presenting from home for evaluation of vomiting and fever. In the ED, found to be in SVT in the 160s s/p adenosine, low grade temp, WBC 12K. Lactate 1.5, BPs soft at times but generally stable. Hx ureteral obstruction/ left hydronephrosis/ large parapelvic cyst s/p left nephrostomy 01/2024 at [facility] [place] and exchanged 11/[address] ABD/pelvis shows Resolution of left hydronephrosis following interval placement of a percutaneous nephrostomy. Persistent bilateral urothelial thickening and bilateral wall thickening. This is likely chronic although could be correlated with urinalysis. Bilateral nephrolithiasis. No ureteral calculi. Minimal right lower lobe groundglass opacity which favors a mild infectious process. Suspect urinary source +/- RLL pneumonia Patient refused biofire testing s/p cefepime in the ED, will continue with and add doxy for possible pneumonia. Considered using Zosyn given possible RLL pneumonia and possible aspiration with vomiting however deferred due to underlying CKD Check MRSA nasal Urine (from nephrostomy and bladder) and blood cultures Urology consult (4) SVT (supraventricular tachycardia): Plan: Hx of sinus tach managed with metoprolol however missed a.m. medications Presented with SVT in the 160s s/p IV adenosine x 1 with improvement Mg +1.6, s/p replacement Continue LACQUER POLISHER dose metoprolol succinate 25 mg BID Cardiology consult Echo (5) Metabolic acidosis, normal anion gap (NAG): Plan: Likely multifactorial due to chronic diarrhea and CKD Receiving IVF If not improved by tomorrow, consider nephrology consult (6) CKD (chronic kidney disease), stage IV: Plan: Creatinine 2.4, at baseline (7) Chronic diarrhea: Plan: At baseline per patient, no indication for stool testing at this time (8) Bipolar disorder: Plan: Continue LACQUER POLISHER oxcarbamazepine DVT PROPHYLAXIS SQ heparin Patient seen and collaboration with Dr. Turner. I spent a total of 75 minutes coordinating, documenting, and providing care for this patient excluding time spent in the performance of separately billed [employer] Results es. This included personally reviewing all current laboratories and imaging studies, medication reconciliation, outpatient chart review, and discussion with specialists. History of Present Illness Chief Complaint: Vomiting, fever Primary Care Provider: Lo Chand DO 69-year-old female with PMH HLD, COPD, CALI, asthma, CKD stage IV, sinus tachycardia, GERD, stress-induced catecholamine mediated cardiomyopathy in 2015 with normalization of LV systolic function, history of recurrent complicated UTIs with ureteral obstruction/ left hydronephrosis/ large parapelvic cyst s/p left nephrostomy 01/2024 at [facility] [place] and other problems listed below who presents to the ED for evaluation of vomiting and fever. Patient admitted to [facility] [place] 11/19- 11/25 for complicated UTI and obstructed left nephrostomy tube which was replaced by IR. Patient reports she developed vomiting yesterday afternoon. She also reports lower abdominal pain. Has chronic back pain that seems to be unchanged from baseline. Reports left nephrostomy tube has been draining adequately. Reports urine had appeared cloudy but is currently clear. Also reports a productive cough. States that this morning she could feel her heart beating in her ears. Denies chest pain and shortness of breath. No lightheadedness, dizziness, diaphoresis, syncopal events. Reports fever of 102. Upon arrival to the ED, patient's heart rate was in the 160s. She was found to be in SVT and received 1 dose of adenosine 6 mg with improvement in HR. Patient with low- grade temp of 37.6. WBC 12K, lactate 1.5. BP is soft at times but generally stable. CT ABD/pelvis shows Resolution of left hydronephrosis following interval placement of a percutaneous nephrostomy. Persistent bilateral urothelial thickening and bilateral wall thickening. This is likely chronic although could be correlated with urinalysis. Bilateral nephrolithiasis. No ureteral calculi. Minimal right lower lobe groundglass opacity which favors a mild infectious process. Patient was also given IV cefepime, IVF, magnesium replacement. Allergies Allergy/AdvReac Type Severity Reaction Status Date / Time fentanyl Allergy Severe itching/felt Verified 12/14/23 10:15 like throat closing salicylates Allergy Severe SHORTNESS Verified 02/12/25 13:19 OF BREATH Iodinated Contrast Media Allergy Intermediate EYES Verified 12/14/23 10:15 SWELLING/Hives amoxicillin [From Augmentin] Allergy Mild Rash Verified 12/14/23 10:15 aspirin Allergy Mild FACIAL Verified 02/12/25 13:19 SWELLING clavulanic acid Allergy Mild Rash Verified 12/14/23 10:15 [From Augmentin] hydromorphone Allergy Mild RASH/ITCHIN Verified 12/14/23 10:15 G Opioids - Morphine Analogues Allergy Unknown Unknown - Unverified 02/12/25 13:19 On file w/ [facility] Tetracyclic Antidepressants Allergy Unknown Unknown - Unverified 02/12/25 13:19 On file w/ [facility] meperidine AdvReac Intermediate ITCH Verified 02/12/25 13:19 morphine AdvReac Intermediate ITCH Verified 02/12/25 13:19 tramadol AdvReac Mild itch Verified 12/14/23 10:15 Home Medications Medication Instructions Recorded Confirmed Type atorvastatin 40 mg tablet (Lipitor) 40 mg PO QAM 07/12/18 02/12/25 History pantoprazole 40 mg tablet,delayed 40 mg PO BID 07/12/18 02/12/25 History release (Protonix) riboflavin (vitamin B2) 400 mg 400 mg PO QAM 07/12/18 02/12/25 History tablet cholecalciferol (vitamin D3) 50 2,000 unit PO QAM 05/16/19 02/12/25 History mcg (2,000 unit) capsule (Vitamin D3) oxcarbazepine 300 mg tablet 300 mg PO BID 12/22/21 02/12/25 History loperamide 2 mg capsule 2 mg PO TID PRN diarrhea #30 caps 01/18/22 02/12/25 Rx magnesium oxide 400 mg (241.3 mg 400 mg PO DAILY 11/02/22 02/12/25 History magnesium) tablet acetaminophen 325 mg tablet 650 mg (2 x 325 mg) PO Q8H PRN 11/09/22 02/12/25 Rx fever or pain #60 tabs cyanocobalamin (vitamin B-12) 100 100 mcg PO QAM #30 tabs 11/09/22 02/12/25 Rx mcg tablet (Vitamin B-12) midodrine 5 mg tablet 5 mg PO TID #90 tabs 04/21/23 02/12/25 Rx metoprolol succinate 25 mg 25 mg PO BID 12/14/23 02/12/25 History tablet,extended release 24 hr tamsulosin 0.4 mg capsule 0.4 mg PO DAILY #30 caps 12/21/24 02/12/25 Rx hydroxyzine HCl 25 mg tablet 25 mg PO HS 02/12/25 02/12/25 History oxybutynin chloride 5 mg tablet 5 mg PO QAM 02/12/25 02/12/25 History Past Med/Surg History Problem List (Updated 02/12/25 @ 16:44 by Background Daemon) Abdominal pain (Acute) Urinary tract infection (Acute) Sepsis (Acute) Sepsis SVT (supraventricular tachycardia) (Acute) Hydronephrosis, left Complicated UTI (urinary tract infection) (Acute) Metabolic acidosis, normal anion gap (NAG) (Acute) Colon cancer (Chronic) H/O ileostomy (Chronic) Hypertension On home oxygen therapy COPD (chronic obstructive pulmonary disease) CALI (obstructive sleep apnea) Chronic respiratory failure with hypoxia Bilateral nephrolithiasis Renal lesion Chronic diarrhea Chronic anemia (Acute) CKD (chronic kidney disease), stage IV Eosinophilia Hyperlipidemia Renal cyst Bipolar disorder Medical History (Updated 02/12/25 @ 16:44 by Background Maxim Athleticemon) Nephrostomy present Sleep apnea No device since device recalled History of COVID-19 x2, most recent 10/2022- symptoms resolved Chronic obstructive pulmonary disease 2L NC HS Nausea and vomiting History of TIA (transient ischemic attack) Remote hx, "when I was younger" Takotsubo cardiomyopathy 2015 with return to normal LV function Recurrent UTI CKD (chronic kidney disease), stage III Stage 3 Follows with [facility] nephrology ([place]) Kidney stone Mood disorder Sinus tachycardia No recent issues Diarrhea Flank pain with history of urolithiasis Recurrent falls Diabetes mellitus, type 2 Morbid obesity with BMI of 40.0-44.9, adult History of colon cancer 2012 > s/p surgery Chronic back pain GERD (gastroesophageal reflux disease) Anxiety Chronic headaches Deep vein thrombosis LLE (remote hx), was treated with blood thinners Myocardial Infarction 2016 > cardiac cath, normal coronary anatomy without coronary obstruction Poor historian Depression Asthma HTN (hypertension) Surgical History History of anesthesia reaction Patient had cysto/stent (10/11/21) for kidney stone at [facility] with MAC. "Patient awake and comfortable"/no issues noted per post-op anesthesia progress note. Per 10/16/21 critical care note, patient developed acute metabolic encephalopathy- multifactorial and subsequently intubated 10/17/21 d/t "altered MS" > extubated 10/19/21 History of cystoscopy s/p L ureteral stent 10/2021 followed by lithotripsy, stone extraction and stent exchange 11/2021 History of esophageal dilatation History of colonoscopy History of esophagogastroduodenoscopy (EGD) History of lithotripsy History of bilateral cataract extraction History of blepharoplasty History of cardiac cath 2018 > no stents History of kidney surgery at age 9 yrs "something was wrong and had to fix it" History of appendectomy History of tooth extraction H/O hand surgery Right Hx of cholecystectomy History of total abdominal hysterectomy and bilateral salpingo-oophorectomy History of colectomy Family History Other Breast cancer Colorectal cancer No family history of adverse response to anesthesia Social History Smoking Status: Never smoker Second Hand Exposure: Yes (IN THE PAST); Do You Dip or Chew Tobacco: No; Hx Alcohol Use: No Hx Substance Use: No Preferred Language: Urdu Communication Ability: Effective Visual Impairment: No Limitations Hearing Ability: Normal Fleet Service Manager Required: No Beliefs That Will Affect Care: None marital status: Current Living Situation: Alone Current Living Situation Comment: LIVES IN APARTMENTS/ LIVES UPSTAIRS IN ANOTHER APARTMENT Feels Safe at Home: Yes Assistive Devices: Bedside Commode, Cane, Walker and Wheelchair Physical Exam Physical Exam: please refer to Dr. Turner's addendum for physical exam Results & Data Results & Data Vital Signs (Past 12 Hours) Vital Signs Temp Pulse Resp BP Pulse Ox O2 Del Method 02/12/25 15:17 94 H 02/12/25 15:00 91 H 19 95 02/12/25 15:00 98/61 L 02/12/25 15:00 98/61 L 02/12/25 15:00 98/61 L 02/12/25 14:36 96 H 22 96 02/12/25 14:30 107/85 02/12/25 14:30 107/85 02/12/25 14:24 91 H 20 96 02/12/25 14:00 120/82 02/12/25 14:00 120/82 02/12/25 14:00 96 H 19 95 02/12/25 13:42 98 H 22 93 02/12/25 13:31 104/80 02/12/25 13:31 104/80 02/12/25 13:31 104/80 Room Air 02/12/25 13:30 37.3 C 02/12/25 13:15 103 H 18 96 Room Air 02/12/25 13:12 103 H 15 95 Room Air 02/12/25 12:30 104 H 14 95 Room Air 02/12/25 12:27 105 H 27 H 96 Room Air 02/12/25 12:01 132/90 02/12/25 12:01 132/90 02/12/25 12:01 132/90 02/12/25 11:54 114 H 23 96 Room Air 02/12/25 11:31 140/103 H 02/12/25 11:30 115 H 15 94 Room Air 02/12/25 11:19 124/98 02/12/25 11:19 124/98 02/12/25 11:19 124/98 02/12/25 11:19 124/98 02/12/25 11:11 94 Room Air 02/12/25 11:04 160 H 02/12/25 11:03 163 H 14 94 Room Air 02/12/25 11:01 127/90 02/12/25 11:01 127/90 02/12/25 10:53 37.6 C H 161 H 22 127/90 94 Room Air Laboratory Results Short CBC 02/12/25 Range/Units 11:09 WBC 12.65 H (4.8-10.8) K/ul Hgb 11.0 L (12.0-16.0) g/dl Hct 35.6 L (37.0-47.0) % Plt Count 208 (130-400) K/uL BMP 02/12/25 11:09 Sodium 141 Potassium 4.1 Chloride 116 H Carbon Dioxide 15 L BUN 30 H Creatinine 2.43 H Glucose 167 H Calcium 9.3 Liver Function 02/12/25 Range/Units 11:09 Total Bilirubin 0.5 (0.2-1.0) mg/dl Direct Bilirubin 0.1 (0-0.2) mg/dl AST 16 (13-39) U/L ALT 13 (7-52) U/L Alkaline Phosphatase 135 H (34-104) U/L Albumin 4.0 (3.4-5.0) gm/dl Diagnostic Findings Chest X-Ray 02/12/25 11:11 XR chest 1V portable CLINICAL HISTORY: Sepsis COMPARISON STUDY: 11/19/2024 FINDINGS: Heart size and pulmonary vasculature are normal. No effusion, consolidation, or pneumothorax. Stable moderate hiatal hernia. IMPRESSION: No acute findings. ACT 112: Negative or not required by law. Electronically signed by: Mumtaz Park M.D. 02/12/2025 11:41 AM Abdomen/Pelvis CT 02/12/25 11:15 CT OF THE ABDOMEN AND PELVIS WITHOUT CONTRAST CLINICAL HISTORY: Flank pain. COMPARISON STUDY: CT of the abdomen and pelvis November 19, 2024. TECHNIQUE: Axial images of the abdomen and pelvis were obtained without IV contrast. Images were reviewed in the axial, sagittal, and coronal planes. Automated exposure control was utilized for the study. A dose lowering techniq ue was utilized adhering to the principles of ALARA. FINDINGS: Several nodules within the lower lungs are unchanged from earlier exams. Mild right lower lobe groundglass opacities are present. Moderate sized hiatal hernia is unchanged. No pneumatosis, free air or portal venous gas is present. Left hydronephrosis has resolved following placement of a percutaneous nephrostomy. 2.9 cm left upper pole hypodensity previously measured 7.5 cm. Left renal atrophy is again noted. Bilateral renal calculi measure up to 7 mm. There are no ureteral calculi. Bilateral perinephric stranding and urothelial thickening is again noted. As shown on prior exam. Bladder wall thickening with adjacent stranding is also unchanged. Evaluation of the remainder of the abdomen and pelvis is suboptimal on this unenhanced exam. There is no biliary ductal dilatation status post cholecystectomy. Spleen, adrenal glands and pancreas are unremarkable. There is no evidence for a bowel obstruction. There are postoper ative findings consistent with a sigmoid resection. There is no lymphadenopathy. There are no fluid collections. IMPRESSION: 1. Resolution of left hydronephrosis following interval placement of a percutaneous nephrostomy. 2. Persistent bilateral urothelial thickening and bilateral wall thickening. This is likely chronic although could be correlated with urinalysis. 3. Bilateral nephrolithiasis. No ureteral calculi. 4. Minimal right lower lobe groundglass opacity which favors a mild infectious process. ACT 112: Negative or not required by law. Electronically signed by: Abdirashid Motta M.D. 02/12/2025 12:30 PM Code Status & VTE Plan VTE Prophylaxis Plan VTE Prophylaxis will be ordered: Yes Supervising Physician Co-Signing Physician Notes Patient is a 69-year-old female with history of COPD, CKD stage IV, CALI, recurrent UTIs with obstructive uropathy requiring left nephrostomy in 2023 presents with multiple complaints. She has been having nausea and vomiting associated with fever, dysuria and noticed cloudy urine in the nephrostomy tube since yesterday. Patient also states having lower abdominal pain and reports chronic diarrhea. She also states having cough with intermittent expectoration associated with some chest pain. She was noted to be in SVT while in ED requiring adenosine. Currently in sinus tachycardia after adenosine use. She admits to missing her home medications since yesterday night. Please review HPI for complete details of presentation. I personally reviewed blood work and imaging studies. Noted leukocytosis 12.6 K, normocytic anemia with hemoglobin 11.0, hyperchloremia 116, non-anion gap metabolic acidosis with bicarb 15, creatinine 2.4, BUN 30, glucose 167, procalcitonin 0.56, random cortisol normal. UA currently pending. CT abdomen showed bilateral urothelial thickening and bilateral wall thickening, nephrolithiasis and right lower lobe groundglass opacity concerning for infection. Physical Exam: Vitals signs as noted above General Appearance:Obese, no apparent distress Head: normocephalic, Atraumatic Eyes: normal inspection, EOMI Neck: supple, Trachea midline Respiratory/Chest: Normal breath sounds, CTA, No accessory muscle use Cardiovascular: S1, S2, No murmur, tachycardia Abdomen/GI:Soft, mild lower abd tender, Bowel sounds present, L nephrostomy tube Extremities/Musculoskeletal:normal inspection, Trace edema Neurologic/Psych:AAOX3, grossly no focal neurological deficits Skin: normal color, warm Sepsis Complicated urinary tract infection SVT Hypomagnesemia Right lower lobe pneumonia Acute on chronic metabolic acidosis Chronic diarrhea Generalized deconditioning Atypical chest pain Started on broad-spectrum antibiotics cefepime, doxycycline Blood, urine culture pending Resume home metoprolol Continue IV fluids Monitor and replace electrolytes as needed Neurology and cardiology on board Will check stool studies if recurrence of diarrhea PT OT, fall precautions I personally interviewed and examined the patient at bedside. I have reviewed the advanced practitioner's documentation on the date of service referred in note and agree with plan. Patient's care is coordinated with Radha Abdi CONSTRUCTION CARPENTERS HELPER. Please refer to the documentation above for details of patient's presentation and for discussion of other issues. I spent a total [id number] coordinating, documenting, and providing care for this patient excluding time spent in the performance of separately billed services or time spent by another provider/QHP.
[2025-02-12] MEDS: ONDANSETRON INJ 2 MG/ML 2 ML VIAL IV PRN (15:27)
[2025-02-12] MEDS: MAGNESIUM SULFATE / D5W 1 GM/100 ML BAG IV ONE (15:27)
[2025-02-12 16:40] LABS: Appearance Urine Turbid (Clear); Bacteria Urine Automated 4+ (None Seen); Bilirubin Urine Negative (Negative); Blood Urine 2+ (Negative); Color Urine Yellow; Epithelial Cell Urine Auto 0-2 /hpf (0-2); Glucose Urine UA Trace (Negative); Ketones Urine Negative (Negative); Leukocyte Esterase Urine 3+ (Negative); Nitrite Urine Negative (Negative); Protein Urine 3+ (Negative); Specific Gravity Urine 1.011 (1.000-1.030); Urobilinogen Urine Negative (Negative); WBC Urine Automated >50 /hpf (0-5); pH Urine 6.5 (4.5-7.5)
[2025-02-12] MEDS ORDERED: ACETAMINOPHEN 325 MG TAB PO PRN (16:54)
[2025-02-12] MEDS: LACTATED RINGER'S 1,000 ML IV SCH (17:05)
[2025-02-12] MEDS: CEFEPIME 2000MG 2,000 MG/20 ML SYR IV SCH (17:44)
[2025-02-12] MEDS: CIPROFLOXACIN HCL 0.3% OP SOLN 2.5 ML BTL OPL SCH (17:45)
[2025-02-12] MEDS: HEPARIN SOD 5,000 UNIT/0.5 ML VIAL SQ SCH (17:49)
--- OUTSIDE RECORDS SUMMARY | 2025-02-12 17:57 | External Medical Summary | Summary of Care ---
Author Name Unknown Organization [facility] Address [address] [place] [address] Phone [phone] Care Team Providers Care Sales Account Associate Name Role Phone Lo Chand DO Primary Care Provider Reason for Visit * Reason Onset Date Comments Appointment 01/23/2025 Colonoscopy Encounter Details Date Type Department Care Team ([facility] st Contact Info) Description 01/23/2025 Telephone Family Medicine [address] [place] [phone] Lo Chand DO [address] [place], [place] [address] [id number] Appointment (Colonoscopy ) Allergies Active Allergy Reactions Criticality Noted Date Comments Amoxicillin Itching 09/17/2020 Aspirin 05/29/2019 Facial swelling Aspirin 09/17/2020 Amoxicillin-Pot Clavulanate Rash 08/08/2019 Clavulanic Acid 09/17/2020 Demerol Itching Medium 07/23/2014 Fentanyl Itching High 12/11/2019 Throat closing sensation Fentanyl 09/17/2020 Hydromorphone Other (Please comment) 03/10/2018 She states she had addiction to this Hydromorphone 09/17/2020 Iodinated Contrast Media 09/17/2020 Ivp Dye Hives 01/31/2002 Meperidine 09/17/2020 Morphine 09/17/2020 Morphine And Codeine Itching 06/26/2013 Salicylates Edema Other 01/31/2002 Eyes, lips Salicylates 09/17/2020 Tramadol Edema face/lips/tongue High 03/10/2018 Tramadol 09/17/2020 documented as of this encounter (statuses as of 01/28/2025) Medications oxygen GAS Use as directed 2 L/min(Oxygen) as needed for Shortness of Breath. Use as needed with activity 2 Active OneTouch Verio In Vitro Strip (Glucose Blood)Indications: Type 2 diabetes mellitus with stage 4 chronic kidney disease, without long-term current use of insulin ([facility]) Test once daily Dx E11.9 100 Strip 5 2 Active Riboflavin 400 MG Oral Tablet TAKE ONE TABLET IN THE MORNING 90 Tablet 1 3 Active Incontinence Supplies Disposable briefs size XL. Use as directed for urinary incontinence. 100 Each 5 3 Active Incontinence Supplies Poise pads. Use as directed for urinary incontinence. 100 Each 5 3 Active hydrOXYzine HCl 25 MG Oral TabletIndications: Insomnia, unspecified type Take 1 Tablet by mouth every night at bedtime. 90 Tablet 3 4 Active Vitamin D3 50 MCG (2000 UT) Oral CapsuleIndications :Vitamin D deficiency TAKE ONE CAPSULE BY MOUTH IN THE MORNING Strength: 50 MCG (2000 UT) 90 Capsule 3 4 Active MAGnesium-Oxide 400 (240 Mg) MG Oral Tablet (Magnesium Oxide -Mg Supplement) TAKE ONE TABLET BY MOUTH EVERY DAY 28 Tablet 4 Active Metoprolol Succinate ER 25 MG Oral Tablet Extended Release 24 Hour (toPROL XL) TAKE ONE TABLET TWICE DAILY 64 Tablet 4 Active Pantoprazole Sodium 40 MG Oral Tablet Delayed Release (Protonix)Indicati ons:Gastroesophage al reflux disease with esophagitis without hemorrhage Take 1 Tablet by mouth in the morning and 1 Tablet before bedtime. 56 Tablet 4 Active OXcarbazepine 300 MG Oral Tablet (Trileptal)Indicat ions:Dyslipidemia, goal LDL below 100 TAKE ONE TABLET BY MOUTH TWICE DAILY 180 Tablet 1 4 Active Atorvastatin Calcium 40 MG Oral Tablet (Lipitor)Indicatio ns:Dyslipidemia, goal LDL below 100 TAKE ONE TABLET BY MOUTH IN THE MORNING 90 Tablet 1 4 Active BD PosiFlush 0.9 % Intravenous Solution USE DIRECTED FOR tube flushing 5 Active Nystatin 021021 UNIT/GM External Cream Apply topically to affected area 2 times a day. To affacted area for two weeks. 60 g 2 5 Active Ondansetron 4 MG Oral Tablet Disintegrating (Zofran)Indication s:Nausea without vomiting Place 1 Tablet on tongue every 8 hours as needed for Nausea or Vomiting. dissolve on tongue. 90 Tablet 1 5 Active oxyBUTYnin Chloride 5 MG Oral Tablet (Ditropan) Take 1 Tablet by mouth in the morning. In the morning.. 90 Tablet 2 5 Active Midodrine HCl 5 MG Oral Tablet (Proamatine) Take 1 Tablet by mouth in the morning and 1 Tablet at noon and 1 Tablet before bedtime. 270 Tablet 2 5 Active documented as of this encounter (statuses as of 01/28/2025) Active Problems Problem Noted Date Diagnosed Date Bipolar disorder 01/23/2025 H/O insertion of nephrostomy tube 01/23/2025 Obstruction of nephrostomy tube 12/04/2024 Stress incontinence 02/07/2024 Hypertensive kidney disease with chronic kidney disease stage IV 09/21/2021 Overview: Per CKD protocol Chronic kidney disease, stage 4 (severe) 021 Overview: Per CKD protocol 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 Senile osteoporosis 12/14/2019 CALI (obstructive sleep apnea) 09/04/2019 COPD, group D, by GOLD 2017 classification 09/04 Moderate persistent asthma without complication 09/04/2019 Diastolic dysfunction 08/15/2019 History of kidney stones 05/29/2019 Oropharyngeal dysphagia 06/25/2016 Hyperlipidemia with target LDL less than 70 06/10 Renal cyst, left 01/29/2016 DDD (degenerative disc disease), lumbar 01/29/20 16 Pruritus 02/27/2013 History of colon cancer 01/27/2011 Rosacea 10/12/2002 Reflux esophagitis documented as of this encounter (statuses as of 01/28/2025) Resolved Problems Problem Noted Date Diagnosed Date Resolved Date Cardiomyopathy 01/23/2025 01/23/2025 Type 2 diabetes mellitus wit h diabetic chronic kidney disease 01/23/2025 01/23/2025 Bipolar disorder, currently in remission, most recent episode unspecified 12/03/2022 01/24/20 25 Complicated UTI (urinary tract infection) 12/07/2021 12/09/2021 Renal cyst, left 12/07/2021 05/07/2022 Type 2 diabetes mellitus wit h stage 4 chronic kidney disease, without long-term current use of insulin 09/21/2021 01/29/2024 Overview: Per CKD protocol Chronic kidney disease, stage 3b 02/17/2021 09/24/2021 Overview: Per CKD protocol Type 2 diabetes mellitus wit h stage 3b chronic kidney disease 02/17/2021 09/24/2021 Overview: Per CKD protocol Encephalopathy acute 09/23/2020 023 Acute respiratory acidosis 09/23/2020 0 12/03/2022 Hypertensive kidney disease with stage 3b chronic kidney disease 08/18/2020 09/24/2021 Overview: Per CKD protocol Diabetes mellitus with stage 3 chronic kidney disease 08/18/2020 02/19/2021 Overview: Per CKD protocol Unspecified diastolic (conge stive) heart failure 12/11/2019 04/07/2020 Pneumonia due to infectious organism 09/04/2019 04/07/2020 Bronchiectasis without complication 09/04/2019 01/27/2022 Ground glass opacity present on imaging of lung 09/04/2019 12/16/2020 Chronic respiratory failure with hypoxia 08/08/2019 12/09/2021 Type 2 diabetes mellitus wit h stage 3 chronic kidney disease, without long-term current use of insulin 07/26/2019 08/21/2020 Overview: Per CKD protocol Hypertensive kidney disease with chronic kidney disease stage III 05/29/2019 08/21/2020 Overview: Per CKD protocol Type 2 diabetes mellitus wit h hemoglobin A1c goal of less than 8.0% 05/29/2019 01/23/2025 Anxiety state 04/05/2018 01/23/2025 Iron deficiency anemia 03/10/201804/05 Obesity hypoventilation syndrome 03/10/2018 01/23/2025 Opioid withdrawal 12/24/2016 05/29/2019 Mitral valve insufficiency 06/25/2016 0 12/24/2016 Anemia 06/25/2016 06/05/2019 Obesity, morbid (more than 1 00 lbs over ideal weight or BMI > 40) 01/29/2016 01/27/2022 Edema 01/29/2016 04/05/2023 Kidney disease, chronic, sta ge III (GFR 30-59 ml/min) 12/03/2013 06/22/2019 Overview: Per CKD protocol #1 MEDICATION USE AGREEMENT 04/05/2011 Asthma with severity to be determined 04/02/2010 02/09/2016 Overview (01/19/2016): Per Asthma Taxonomy ICD-10 update of inactive term LOSS OF TEETH, ACQUIRED 10/12/200202/08 BACKACHE NOS 01/31/2002 03/10/2018 Asthma, allergic 04/02/2010 Calculus of kidney 9 Osteoarthrosis, unspecified whether generalized or localized, lower leg 02/08 HTN, goal below 140/90 12/04 Bipolar disorder 04/05/2023 documented as of this encounter (statuses as of 01/28/2025) Immunizations Name Administration Dates Next Due Pneumococcal Conjugate Vacc, 13 Valent (Prevnar) 06/05/2019 Pneumococcal Conjugate Vacci ne, 20-valent ([id number]) 11/11/2023 Pneumococcal Polysaccharide PPV23 (Pneumovax) 06/08/2016,03/01/2011 Season Influenza, Quad, PF, Adjuvanted, 65+ Yrs, IM (FLUAD) 06/17/2020 Seasonal Influenza Vac., MDV , IM, 0.5 mL (Fluzone) 11/03/2014,07/27/2012,06/28/2011 Seasonal Influenza Virus Vac cine, Unspecified Formulation 08/21/2021,06/17/2020,08/15/2019,07/12,08/16/2017,06/25/2016,10/28/2014 ,07/27/2012,06/28/2011 Seasonal Influenza, PF, 6 M & above, IM , (FluLaval or Fluzone) 07/12/2018,08/16/2017 Seasonal Influenza, Quadriva lent Hd (Fluzone Hd) 08/21/2021 Seasonal Influenza, Quadriva lent, No Preserve, IM 06/25/2016 Seasonal Influenza, Trivalen t, Adjuvanted, 65+ YRS, PF, (Fluad) 08/15/2019 TDAP, Age 7 and older, IM (Adacel) 03/01/2011 documented as of this encounter Social History Tobacco Use Types Packs/Day Years Used Date Smoking Tobacco: Never Smokeless Tobacco: Never Alcohol Use Standard Drinks/Week Comments No 0 (1 standard drink = 0.6 oz pur e alcohol) PHQ-2 Answer Date Recorded PHQ Adult Total Score 0 10/30/2024 Hunger Vital Sign Answer Date Recorded Within the past 12 months, y ou worried that your food would run out before you got the money to buy more. Never true 10/30/19 25 Within the past 12 months, t he food you bought just didn't last and you didn't have money to get more. Never true 10/30/2024 Childcare Answer Date Recorded Do you feel overwhelmed with taking care of a child, family member or friend? No 10/30/2024 Does your family need help f inding childcare? (Household - for ages 0-17 years) Not on file 10/30/2024 Clothing Answer Date Recorded Have you been unable to get clothing when it was really needed? No 10/30/2024 Is your family able to get c lothes or diapers when needed? (Household - for ages 0-17 years) Not on file 10/30/2024 Personal Safety Answer Date Recorded Do you feel unsafe or have concerns for your saf ety? No 10/30/2024 Do you have concerns for you r family's safety? (Household - for ages 0-17 years) Not on file 10/30/2024 Utilities Answer Date Recorded Do you have trouble paying y our heating, water, or electric bill? No 10/30/2024 Is your family able to pay t he heat, water, or electric bill? (Household - for ages 0-17 years) Not on file 10/30/2024 Does your family have access to good internet? (Household - for ages 0-17 years) Not on file 10/30/2024 Employment Status Answer Date Recorded Are you unemployed or without regular income? No 10/30/2024 Does the household have a re gular source of income? (Household - for ages 0-17 years) Not on file 10/30/2024 Social Connections Answer Date Recorded How often do you feel lonely or isolated from th ose around you? Never 10/30/2024 Financial Resource Strain Answer Date R ecorded Do you have any trouble payi ng for your medications, or do you think you might in the future? No 10/30/2024 Does your family have troubl e paying for medicine? (Household - for ages 0-17 years) Not on file 10/30/2024 Transportation Needs Answer Date Record ed Do you have trouble getting a ride to medical visits or work? (Adult - for ages 18 years and over) Not on file 10/30/2024 Does your family have a hard time getting a ride to doctors visits? (Household - for ages 0-17 years) Not on file 10/30/2024 Has lack of transportation k ept you from medical appointments, meetings, work, or from getting things needed for daily living? Check all that apply. No 10/30/2024 Do you (or your family) have trouble finding or paying for a ride (transportation)? (Household - for ages 0-17 years) Not on file 10/30/2024 Housing Stability Answer Date Recorded Do you currently live in a s helter or have no steady place to sleep at night? No 10/30/2024 Do you think you are at risk of becoming homeless? (Adult - for ages 18 years and over) Not on file 10/30/2024 Does your family worry about paying for your home or becoming homeless? (Household - for ages 0-17 years) Not on file 0 10/30/2024 Are you homeless or worried that you might be in the future? No 10/30/2024 Are you (or your family) rigoberto eless or worried that you might be in the future? (Household - for ages 0-17 years) Not on file Food Insecurity Answer Date Recorded Do you need food for this week? No 10/30/2024 Are you able to get enough f ood for your family? (Household - for ages 0-17 years) Not on file 10/30/2024 Does your family need food t his week? (Household - for ages 0-17 years) Not on file 10/30/2024 Do you always have enough fo od for your family? (Household - for ages 0-17 years) Not on file 10/30/2024 Food Insecurity Answer Date Recorded Within the past 12 months, y ou worried that your food would run out before you got the money to buy more. Never true 10/30/19 25 Within the past 12 months, t he food you bought just didn't last and you didn't have money to get more. Never true 10/30/2024 Do you need food for this week? No 10/30/2024 Comments No Sex and Gender Information Value Date Recorded Sex Assigned at Not on file Legal Sex Female 4:59 AM EST Gender Identity Not on file Sexual Orientation Not on file Occupation Industry Job Start Date Job End Date unemployed Not on file Not on file Not on file documented as of this encounter Functional Status * Are you deaf or do you have serious difficulty hearing? Answer Date of Assessment Author No 12/06/2021 10:37 PM Yovani Tinajero RN * Are you blind or do you have serious difficulty seeing, even when wearing glasses? Answer Date of Assessment Author No 12/06/2021 10:37 PM Yovani Tinajero RN * Do you have serious difficulty walking or climbing stairs? (5 years old or older) Answer Date of Assessment Author Yes 12/06/2021 10:37 PM Yovani Tinajero RN * Do you have difficulty dressing or bathing? (5 years old or older) Answer Date of Assessment Author Yes 12/06/2021 10:37 PM Yovani Tinajero RN * Because of a physical, mental, or emotional condition, do you have difficulty doing errands alone such as visiting a doctor’s office or shopping? (15 years old or older) Answer Date of Assessment Author Yes 12/06/2021 10:37 PM EST Salvatie rra, Yovani E, RN documented as of this encounter Mental Status * Because of a physical, mental, or emotional condition, do you have serious difficulty concentrating, remembering, or making decisions? (5 years old or older) Answer Entry Date Author Yes 12/06/2021 10:37 PM JARRETT Sheela Yovani brito, RN documented in this encounter Miscellaneous Notes * Telephone Encounter - Olivia Marc OSA - 01/28/2025 12:58 PM EDT Pt scheduled 07/18 with g * Telephone Encounter - Olivia Marc OSA - 01/24/2025 9:47 AM EDT Called pt vm was full unable to lm * Telephone Encounter - Kanchan Barros OSA - 01/23/2025 11:31 AM EDT Elise peters scheduled for colonoscopy for: Special screening for malignant neoplasms, colon [Z12.11] - Primary documented in this encounter Plan of Treatment Upcoming Encounters Date Type Department Care Team (Latest Contact Info) Description 02/25/2025 2:00 PM EDT Office Visit Nephrology [address] [place] [phone] ZeMaribel molina PA-C [address] [place] [address] 05/14/2025 10:30 AM EDT Office Visit Cardiology [address] [place] [phone] Francisco Javier Mancilla PA-C [address] [place] [address] 07/18/2025 10:15 AM EDT Hospital Encounter [facility], Endoscopy Room [facility] [address] [place] [phone] Irma Kidd MD [address] [place] [address] 07/18/2025 10:15 AM EDT - 07/18/2025 10:45 AM EDT Surgery ENDO [facility], Endoscopy Room [facility] [address] [place] [phone] Irma Kidd MD [address] [place] [address] COLONOSCOPY FLEXIBLE PROXIMAL DIAGNOSTIC 08/21/2025 3:10 PM EST Office Visit Family Medicine [address] [place] [phone] Lo [address] [place] [address] Scheduled Procedures Name Priority Associated Diagnoses Date/Ti me COLONOSCOPY FLEXIBLE PROXIMAL DIAGNOSTIC Recall Special screening for malignant neoplasms, colon 07/18/2025 10:15 AM EDT Health Maintenance Due Date Last Done Comments Alpha-1 Antitrypsin 1971 Cologuard 1998 Fecal Occult Blood Test 1998 Zoster Vaccines (1 of 2) 2003 Sigmoidoscopy 01/03/2018 01/03/2013 Adult Wellness Visit 2019 DTap/Tdap Vaccines (2 - Td or Tdap) 03/01/2021 03/01/2011 Colonoscopy 10/16/2021 10/16/2019, 12/08, 12/23/2017, Additional history exists Colorectal Cancer Screening 10/16/2021 COVID-19 Vaccine ( - season) 2024 03/05/2021, 02/06/2021 Influenza Vaccine (FLU shot) (Season Ended) 2025 08/21/2021, 08/21/2021, 06/17/2020, Additional history exists GFR 07/25/2025 01/23/2025, 2 02/2025, 01/12/2024, Additional history exists Nephrology Referral 11/26/2025 11/26/2024 Phosphate 12/04/2025 12/04/2024, 02/0 11/2023, 11/15/2022, Additional history exists Albumin/Creatinine Ratio 12/07/2025 025, 04/05/2023, 12/10/2022, Additional history exists Hgb 01/23/2026 01/23/2025, 11/11, 01/12/2024, Additional history exists O2 ASSESSMENT COMPLETED IN PAST YEAR FOR COPD 01/23/2026 01/23/2025 PTH 01/23/2026 01/23/2025, 02/0 11/2023, 05/07/2022, Additional history exists Mammogram 01/24/2026 01/24/2025, 02/1 02/2024, 01/05/2021, Additional history exists Lipid Panel 12/04/2029 12/04/2024, 02/0 11/2023, 12/10/2022, Additional history exists Diabetic Eye Exam Discontinued 03/26/2021, , 10/11/2019, Additional history exists RETIRED - COLONOSCOPY-EVERY 2 YRS AGES 18-100 Discontinued 12/29/2021, 10/16/2019, 12/23/2017, Additional history exists Diabetic Foot Exam Discontinued 04/05/2023, 0 05/07/2022, 07/07/2020, Additional history exists Pneumococcal Vaccine: 50+ Years Completed 11/11/2023, 06/05/2019, 06/08/2016, Additional history exists HPV (Gardasil) Vaccine Aged Out No lo nger eligible based on patient's age to complete this topic Hepatitis B Vaccine Aged Out No longe r eligible based on patient's age to complete this topic MENINGOCOCCAL (MENACTRA/MENVEO) Aged Out No longer eligible based on patient's age to complete this topic Meningitis B Vaccine (Bexsero/Trumemba) Aged Out No longer eligible based on patient's age to complete this topic documented as of this encounter Medical Devices Not on filedocumented as of this encounter Advance Directives * Full Code (Latest Code Status on File) Date Activated Date Inactivated Comments 12/07/2021 12:12 AM 12/11/2021 3:11 PM This order r eflects the patients wishes and were consensually agreed upon. Question Answer Comments Discussion of Advance Directives occurred with: Patient * Full Code Date Activated Date Inactivated Comments 09/18/2020 12:51 PM 09/25/2020 9:02 PM * Full Code Date Activated Date Inactivated Comments 07/29/2011 12:50 PM 08/02/2011 8:45 PM This orde r reflects the patients wishes and were consensually agreed upon. Healthcare Agents on File Name Relationship Healthcare Agent Relationship Communication Martin Nesbitt Spouse Health Care Agent Care Teams Sales Account Associate Relationship Specialty Start Date End Date Lo Chand DO [address] [place] [address] [place] [id number] PCP - General Internal Medicine 07/29/20 documented as of this encounter
--- OUTSIDE RECORDS SUMMARY | 2025-02-12 17:57 | External Medical Summary | Summary of Care ---
Author Name Unknown Organization [facility] Address [address] [facility] [address] Phone [phone] Care Team Providers Care Fire Dispatcher Name Role Phone Lo Chand DO Primary Care Provider Reason for Visit * Reason Comments Outpatient Testing Encounter Details Date Type Department Care Team ([facility] st Contact Info) Description 01/23/2025 11:20 AM EDT Laboratory Laboratory [address] [place] [phone] [place] [address] Abnormal CBC; Elevated liver enzymes; Chronic kidney disease, stage 4 (severe) (HCC); Elevated LFTs Allergies Active Allergy Reactions Criticality Noted Date [...] as of this encounter (statuses as of 01/30/2025) Medications oxygen GAS Use as directed 2 L/min(Oxygen) as needed for Shortness of Breath. Use as needed with activity 2 Active OneTouch Verio In Vitro Strip (Glucose Blood)Indications: Type 2 diabetes mellitus with stage 4 chronic kidney disease, without long-term current use of insulin ([facility]) Test once daily Dx E11.9 100 Strip [...] TABLET BY MOUTH EVERY DAY 28 Tablet 11 4 Active Metoprolol Succinate ER 25 MG [...] DIRECTED FOR tube flushing 5 Active Nystatin 071910 UNIT/GM External Cream Apply topically to affected [...] as of this encounter (statuses as of 01/30/2025) Active Problems Problem Noted Date Diagnosed Date Bipolar disorder 01/23/2025 H/O insertion of nephrostomy tube 01/23/2025 Obstruction of nephrostomy tube 12/04/2024 Stress incontinence 02/07/2024 Hypertensive kidney disease with chronic kidney disease stage IV 09/21/2021 Overview: Per CKD protocol Chronic kidney disease, stage 4 (severe) 021 Overview: Per CKD protocol 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 Senile osteoporosis 12/14/2019 ACLI (obstructive sleep apnea) 09/04/2019 COPD, group D, [...] as of this encounter (statuses as of 01/30/2025) Resolved Problems Problem Noted Date Diagnosed Date [...] as of this encounter (statuses as of 01/30/2025) Immunizations Name Administration Dates Next Due Pneumococcal Conjugate Vacc, 13 Valent (Prevnar) 06/05/2019 Pneumococcal Conjugate Vacci ne, 20-valent ([id number]) 11/11/2023 Pneumococcal Polysaccharide PPV23 (Pneumovax) 06/08/2016,03/01/2011 Season [...] Assessment Author Yes 12/06/2021 10:37 PM Yovani Tinajero, RN documented as of this encounter Mental Status * Because of a physical, mental, or emotional condition, do you have serious difficulty concentrating, remembering, or making decisions? (5 years old or older) Answer Entry Date Author Yes 12/06/2021 10:37 PM Yovani Tinajero RN documented in this encounter Plan of Treatment Upcoming Encounters Date Type Department Care Team (Latest Contact Info) Description 02/25/2025 2:00 PM EDT Office Visit Nephrology [address] [place] [address] Maribel Orta PA-C [address] [place] [address] 05/14/2025 10:30 AM EDT Office Visit Cardiology [address] [place] [address] Francisco Javier Mancilla PA-C [address] [place] [address] 07/18/2025 10:15 AM EDT Hospital Encounter ENDO O[facility], Endoscopy Room [facility] [address] [place] [phone] Irma Kidd MD [address] [place] [address] 07/18/2025 10:15 AM EDT - 07/18/2025 10:45 AM EDT Surgery ENDO [facility], Endoscopy Room [facility] [address] [place] [phone] Irma Kidd MD [address] [place] [address] COLONOSCOPY FLEXIBLE PROXIMAL DIAGNOSTIC 08/21/2025 3:10 PM EST Office Visit Family Medicine [address] [place] [phone] [address] Chand [address] [place] [address] Scheduled Procedures Name Priority Associated Diagnoses Date/Ti [...] Colorectal Cancer Screening 10/16/2021 COVID-19 Vaccine ( season) 2024 03/05/2021, 02/06/2021 Influenza Vaccine (FLU shot) (Season Ended) 2025 08/21/2021, 08/21/2021, 06/17/2020, Additional history exists GFR 07/25/2025 01/23/2025, 11/11, 01/12/2024, Additional history exists Nephrology Referral 11/26/2025 11/26/2024 Phosphate 12/04/2025 12/04/2024, 020 11/2023, 11/15/2022, Additional history exists Albumin/Creatinine Ratio 12/07/2025 025, 04/05/2023, 12/10/2022, Additional history exists Hgb 01/23/2026 01/23/2025, 11/11, 01/12/2024, Additional history exists O2 ASSESSMENT COMPLETED IN PAST YEAR FOR COPD 01/23/2026 01/23/2025 PTH 01/23/2026 01/23/2025, 02/0 11/2023, 05/07/2022, Additional history exists Mammogram 01/24/2026 01/24/2025, 11/10, 01/05/2021, Additional history exists Lipid Panel 12/04/2029 12/04/2024, 020 11/2023, 12/10/2022, Additional history exists Diabetic Eye [...] Not on filedocumented as of this encounter Procedures Procedure Name Priority Date/Time Associated Diagnosis Comments ANEMIA REFLEX CHEMISTRY HOLD Routine 01/23/2025 11:19 AM EDT Chronic kidney disease, stage 4 (severe) (HCC) ANEMIA CBC Routine 01/23/2025 11:19 AM EDT Chronic kidney disease, stage 4 (severe) (HCC) DIFFERENTIAL, AUTOMATED Routine 01/23/2025 11:19 AM EDT Chronic kidney disease, stage 4 (severe) (HCC) DIFFERENTIAL, AUTOMATED Routine 01/23/2025 11:19 AM EDT Chronic kidney disease, stage 4 (severe) (HCC) RETICULOCYTE PANEL Routine 01/23/2025 11 :19 AM EDT Chronic kidney disease, stage 4 (severe) (HCC) HEPATIC FUNCTION PANEL Routine 01/23/2025 11:19 AM EDT Elevated liver enzymes BASIC METABOLIC PANEL Routine 01/23/2025 11:19 AM EDT Chronic kidney disease, stage 4 (severe) (HCC) FOLIC ACID Routine 01/23/2025 11:19 AM EDT Chronic kidney disease, stage 4 (severe) (HCC) IRON SCREEN, INCLUDING TIBC Routine 01/23/2025 11:19 AM EDT Chronic kidney disease, stage 4 (severe) (HCC) PTH Routine 01/23/2025 11:19 AM EDT Chronic kidney disease, stage 4 (severe) (HCC) TSH Routine 01/23/2025 11:19 AM EDT Chronic kidney disease, stage 4 (severe) (HCC) FERRITIN Routine 01/23/2025 11:19 AM EDT Chronic kidney disease, stage 4 (severe) (HCC) VITAMIN B12 Routine 01/23/2025 11:19 AM EDT Chronic kidney disease, stage 4 (severe) (HCC) documented in this encounter Results * VITAMIN B12 (01/23/2025 11:19 AM EDT) Vitamin B12 430 232 - 1,245 pg/mL 01/24/2025 5:54 AM EDT LABORATORY [facility] Blood Venous blood specimen / Unknown Venipuncture / Unknown 01/23/2025 11:19 AM EDT 01/23/2025 11:20 AM EDT us Lo Chand DO LAB BLOOD ORDERABLES Final R esult LABORATORY [facility] [address] [place] [address] * (ABNORMAL) FOLIC ACID (01/23/2025 11:19 AM EDT) Folic Acid 2.7(L) >4.5 ng/mL 01/24/2025 5:54 AM EDT LABORATORY [facility] Blood Venous blood specimen / Unknown Venipuncture / Unknown 01/23/2025 11:19 AM EDT 01/23/2025 11:20 AM EDT Lofarhat Forbesjyothi Chand DO LAB BLOOD ORDERABLES Final R esult Performing Organization Address [facility] Co de Phone Number LABORATORY [facility] [address] [place] [address] * TSH (01/23/2025 11:19 AM EDT) Pathologist [facility] TSH 1.39 0.27 - 4.20 uIU/mL 01/24/2025 5:39 AM EDT LABORATORY [facility] Blood Venous blood specimen / Unknown Venipuncture / Unknown 01/23/2025 11:19 AM EDT 01/23/2025 11:20 AM EDT Lo Forbesjyothi Chand DO LAB BLOOD ORDERABLES Final R esult Performing Organization Address [facility] de Phone Number LABORATORY [facility] [address] [place] [address] * FERRITIN (01/23/2025 11:19 AM EDT) [facility] Ferritin 54 13 - 150 ng/mL 01/24/2025 5:54 AM EDT LABORATORY [facility] Comment:Postmenopausal women have higher ferritin levels than pre-menopausal women. The above reference interval is based on pre-menopausal women. Blood Venous blood specimen / Unknown Venipuncture / Unknown 01/23/2025 11:19 AM EDT 01/23/2025 11:20 AM EDT Lo Chand DO LAB BLOOD ORDERABLES Final R esult Performing Organization Address [facility] Co de Phone Number LABORATORY [facility] [address] [place] [address] * IRON SCREEN, INCLUDING TIBC (01/23/2025 11:19 AM EDT) Iron 92 33 - 151 ug/dL 01/24/2025 5:54 AM EDT LAB[facility]ORY [facility] Iron Binding Capacity 315 250 - 425 ug/dL 01/24/2025 5:54 AM EDT [facility] Transferrin Saturation Percent 29 15 - 55 % 01/24/2025 5:54 AM EDT [facility] Blood Venous blood specimen / Unknown Venipuncture / Unknown 01/23/2025 11:19 AM EDT 01/23/2025 11:20 AM EDT [facility] LAB BLOOD ORDERABLES Final R esult LABORATORY [facility] [address] [place] [address] * RETICULOCYTE PANEL (01/23/2025 11:19 AM EDT) Reticulocyte Percent 1.74 0.80 - 1.90 % 01/23/2025 10:14 PM EDT [facility] Absolute Reticulocyte 66.6 31.3 - 100.1 K/uL 01/23/2025 10:14 PM EDT [facility] Immature Reticulocyte Fraction 15.2 2.5 - 20.6 % 01/23/2025 10:14 PM EDT [facility] Reticulocyte Hemoglobin 30.1 29.7 - 37.4 pg 01/23/2025 10:14 PM EDT LABORATORY C Blood Venous blood specimen / Unknown Venipuncture / Unknown 01/23/2025 11:19 AM EDT 01/23/2025 11:20 AM EDT Lo Chand LAB BLOOD ORDERABLES Final R esult LABORATORY [facility] [address] [place] [address] * ANEMIA REFLEX CHEMISTRY HOLD (01/23/2025 11:19 AM EDT) Blood Venous blood specimen / Unknown Venipuncture / Unknown 01/23/2025 11:19 AM EDT 01/23/2025 11:20 AM EDT us Lo Chand DO LAB BLOOD ORDERABLES Final R esult [facility] [address] [place] [address] * (ABNORMAL) DIFFERENTIAL, AUTOMATED (01/23/2025 11:19 AM EDT) WBC 11.34(H) 4.00 - 10.80 K/uL 01/23/2025 10:02 PM EDT [facility] Neutrophils % 69.3 40.0 - 75.0 % 01/23/2025 10:02 PM EDT [facility] Lymphocytes % 18.3 18.0 - 42.0 % 01/23/2025 10:02 PM EDT [facility] Monocytes % 7.6 1.0 - 11.0 % 01/23/2025 10:02 PM EDT [facility] Eosinophils % 3.8 0.0 - 6.0 % 01/23/2025 10:02 PM EDT [facility] Basophils % 0.5 0.0 - 2.0 % 01/23/2025 10:02 PM EDT [facility] Immature Granulocytes % 0.5 0.0 - 2.0 % 01/23/2025 10:02 PM EDT [facility] Absolute Neutrophils 7.85(H) 1.80 - 7.70 K/uL 01/23/2025 10:02 PM EDT [facility] Absolute Lymphocytes 2.08 1.00 - 4.80 K/ul 01/23/2025 10:02 PM EDT [facility] Absolute Monocytes 0.86 0.00 - 1.10 K/uL 01/23/2025 10:02 PM EDT [facility] Absolute Eosinophils 0.43 0.00 - 0.70 K/uL 01/23/2025 10:02 PM EDT [facility] Absolute Basophils 0.06 0.00 - 0.20 K/uL 01/23/2025 10:02 PM EDT [facility] Absolute Immature Granulocytes 0.06 0.00 - 0.20 K/uL 01/23/2025 10:02 PM EDT [facility] Blood Venous blood specimen / Unknown Venipuncture / Unknown 01/23/2025 11:19 AM EDT 01/23/2025 11:20 AM EDT us Lo Gómez Mannie HAWK LAB BLOOD ORDERABLES Final R esult [facility] [address] [place] [address] * (ABNORMAL) ANEMIA CBC (01/23/2025 11:19 AM EDT) WBC 11.34(H) 4.00 - 10.80 K/uL 01/23/2025 10:02 PM EDT [facility] RBC 3.84 3.85 - 5.15 M/uL 01/23/2025 10:02 PM EDT LABORATORY GM HGB 11.2(L) 12.0 - 15.3 g/dL 01/23/2025 10:02 PM EDT [facility] Comment: Anemia reflex testing triggers on a HGB < 12.0 for Females and HGB < 13.0 for Males in accordance with the WHO Anemia Guidelines Anemia reflex testing triggers on a HGB < 12.0 for Females and HGB < 13.0 for Males in accordance with the WHO Anemia Guidelines HCT 37.8 36.0 - 45.2 % 01/23/2025 10:02 PM EDT [facility] MCV 98.4 81.5 - 97.5 fL 01/23/2025 10:02 PM EDT [facility] MCH 29.2 27.0 - 34.0 pg 01/23/2025 10:02 PM EDT [facility] MCHC 29.6 32.0 - 36.0 g/dL 01/23/2025 10:02 PM EDT [facility] RDW 12.6 11.5 - 15.5 % 01/23/2025 10:02 PM EDT [facility] PLT 269 140 - 400 K/uL 01/23/2025 10:02 PM EDT [facility] MPV 11.0 6.6 - 11.1 fL 01/23/2025 10:02 PM EDT [facility] NRBCs 0 <=0 /100 WBCs 01/23/2025 10:02 PM EDT [facility] Blood Venous blood specimen / Unknown Venipuncture / Unknown 01/23/2025 11:19 AM EDT 01/23/2025 11:20 AM EDT Lo Chand DO LAB BLOOD ORDERABLES Final R esult Performing Organization Address City/[facility]/ZIP Co de Phone Number LABORATORY [facility] [address] [place] [address] * PTH (01/23/2025 11:19 AM EDT) Pathologist [facility] PTH 48 15 - 65 pg/mL 01/24/2025 12:11 PM EDT LABORATORY [facility] Blood Venous blood specimen / Unknown Venipuncture / Unknown 01/23/2025 11:19 AM EDT 01/23/2025 11:20 AM EDT Lo Gómez Chand DO LAB BLOOD ORDERABLES Final R esult Performing Organization Address [facility] de Phone Number LABORATORY [facility] [address] [place] [address] * (ABNORMAL) BASIC METABOLIC PANEL (01/23/2025 11:19 AM EDT) Pathologist [facility] BUN 29(H) 6 - 20 mg/dL 01/24/2025 11:19 AM EDT LABORATORY [facility] CREATININE 2.5(H) 0.5 - 1.0 mg/dL 01/24/2025 11:19 AM EDT LABORATORY [facility] EGFR 21(L) >=60 mL/min 01/24/2025 11:19 AM EDT LABORATORY C Comment:eGFR is calculated b ased on the CKD-EPI 2020 equation. SODIUM 141 135 - 146 mmol/L 01/24/2025 11:19 AM EDT [facility] POTASSIUM 4.7 3.5 - 5.1 mmol/L 01/24/2025 11:19 AM EDT [facility] CHLORIDE 110(H) 98 - 107 mmol/L 01/24/2025 11:19 AM EDT LABORATORY C CO2 16(L) 22 - 32 mmol/L 01/24/2025 11:19 AM EDT [facility] ANION GAP 15 7 - 15 mmol/L 01/24/2025 11:19 AM EDT [facility] GLUCOSE 99 70 - 120 mg/dL 01/24/2025 11:19 AM EDT [facility] CALCIUM 10.1 8.4 - 10.2 mg/dL 01/24/2025 11:19 AM EDT [facility] Blood Venous blood specimen / Unknown Venipuncture / Unknown 01/23/2025 11:19 AM EDT 01/23/2025 11:20 AM EDT us Lo Chand DO LAB BLOOD ORDERABLES Final R esult Performing Organization Address City/[facility]/ZIP Co de Phone Number [facility] [address] [place] [address] * (ABNORMAL) HEPATIC FUNCTION PANEL (01/23/2025 11:19 AM EDT) [facility] Albumin 4.2 3.8 - 5.0 g/dL 01/24/2025 11:19 AM EDT [facility] AST 14 10 - 35 U/L 01/24/2025 11:19 AM EDT [facility] Alkaline Phosphatase 161(H) 35 - 130 U/L 01/24/2025 11:19 AM EDT [facility] ALT 13 10 - 35 U/L 01/24/2025 11:19 AM EDT [facility] Bilirubin, Total 0.4 <=1.2 mg/dL 01/24/2025 11:19 AM EDT [facility] Bilirubin, Direct 0.1 0.0 - 0.3 mg/dL 01/24/2025 11:19 AM EDT [facility] Protein 7.3 6.0 - 8.3 g/dL 01/24/2025 11:19 AM EDT [facility] Blood Venous blood specimen / Unknown Venipuncture / Unknown 01/23/2025 11:19 AM EDT 01/23/2025 11:20 AM EDT us Lo Chand DO LAB BLOOD ORDERABLES Final R esult Performing Organization Address City/[facility]/ZIP Co de Phone Number [facility]ORY [facility] [address] [place] [address] documented in this encounter Visit Diagnoses Diagnosis Abnormal CBC Other abnormal blood chemistry Elevated liver enzymes Nonspecific elevation of levels of transaminase or lactic acid dehydrogenase (LDH) Chronic kidney disease, stage 4 (severe) (HCC) Elevated LFTs Other abnormal blood chemistry Special screening for malignant neoplasms, colon documented in this encounter Advance Directives * Full Code [...] Nesbitt Spouse Health Care Agent Care Teams Fire Dispatcher Relationship Specialty Start Date End Date oL Chand DO [address] [place] [address] [place] [phone] PCP - General Internal Medicine 07/29/20 documented as of this encounter
--- OUTSIDE RECORDS SUMMARY | 2025-02-12 17:57 | External Medical Summary | Summary of Care ---
Author Name Unknown Organization [facility] Address [address] [place] [address] Phone [phone] Care Team Providers Care Shredding Machine Operator Name Role Phone Lo Chand DO Primary Care Provider Encounter Details Date Type Department Care Team ([facility] st Contact Info) Description 01/24/2025 3:30 PM EDT Imaging Radiology [address] [place] [address] Screening mammogram for breast cancer Allergies Active Allergy Reactions Criticality Noted Date [...] as of this encounter (statuses as of 01/25/2025) Medications oxygen GAS Use as directed 2 L/min(Oxygen) as needed for Shortness of Breath. Use as needed with activity 2 Active OneTouch Verio In Vitro Strip (Glucose Blood)Indications: Type 2 diabetes mellitus with stage 4 chronic kidney disease, without long-term current use of insulin (HCC) Test once daily Dx E11.9 100 Strip [...] DIRECTED FOR tube flushing 5 Active Nystatin 585626 UNIT/GM External Cream Apply topically to affected [...] as of this encounter (statuses as of 01/25/2025) Active Problems Problem Noted Date Diagnosed Date [...] as of this encounter (statuses as of 01/25/2025) Resolved Problems Problem Noted Date Diagnosed Date Resolved Date Cardiomyopathy 01/23/2025 01/23/2025 Type 2 diabetes mellitus wit h diabetic chronic kidney disease 01/23/2025 01/23/2025 Bipolar disorder, currently in remission, most recent episode unspecified 12/03/2022 04/16/20 25 Complicated UTI (urinary tract infection) 12/07/2021 [...] as of this encounter (statuses as of 01/25/2025) Immunizations Name Administration Dates Next Due Pneumococcal Conjugate Vacc, 13 Valent (Prevnar) 06/05/2019 Pneumococcal Conjugate Vacci ne, 20-valent ([id number]) 11/11/2023 Pneumococcal Polysaccharide PPV23 (Pneumovax) 06/08/2016,03/01/2011 Season [...] 12/06/2021 10:37 PM Yovani Tinajero RN documented as of this encounter Mental Status * Because of a physical, mental, or emotional condition, do you have serious difficulty concentrating, remembering, or making decisions? (5 years old or older) Answer Entry Date Author Yes 12/06/2021 10:37 PM EST Yovani Alonso RN documented in this encounter Progress Notes * Olive Henderson RN - 01/25/2025 3:55 PM EDT Contact: Letter Contact Type: Test Results Provider In-Basket: Yes Outcome: see letter Face to face time spent with Patient (minutes): 0 Total Time including non face to face (minutes): 10 documented in this encounter Miscellaneous Notes * Result Encounter Note - Olive Henderson RN - 01/25/2025 3:55 PM EDT Screening mammogram in 1 year is recommended for both breasts. Letter sent documented in this encounter Plan of Treatment Upcoming Encounters Date Type Department Care Team (Late st Contact Info) Description 02/25/2025 2:00 PM EDT Office Visit Nephrology [address] [place] [address] Maribel Orta PA-C [address] [facility] [place] [address] 05/14/2025 10:30 AM EDT Office Visit Cardiology [address] [place] [address] Francisco Javier Mancilla PA-C [address] [place] [address] 08/21/2025 3:10 PM EST Office Visit Family Medicine [address] [place] [phone] Lo [address] [place] [address] Scheduled Procedures Name Priority Associated Diagnoses Date/Ti me COLONOSCOPY FLEXIBLE PROXIMA L DIAGNOSTIC Recall Special screening for malignant neoplasms, colon Health Maintenance Due Date Last Done Comments [...] Procedure Name Priority Date/Time Associated Diagnosis Comments MAMMOGRAM SCREENING SOUMYA BILATERAL Routine 01/24/2025 3:17 PM EDT Screening mammogram for breast cancer documented in this encounter Results * MAMMOGRAM SCREENING SOUMYA BILATERAL (01/24/2025 3:17 PM EDT) Anatomical Region Laterality Modality Breast Bilateral Mammography Narrative 01/24/2025 3:50 PM EDT Result MAMMOGRAM SCREENING SOUMYA BILATERAL History Screening mammogram for breast cancer Family medical history includes breast cancer in 3 relatives (mother, sister, sister). Films Compared 11/24/2023 MAMMOGRAM SCREENING SOUMYA BILATERAL, 01/05/2021 MAMMOGRAM SCREENING BILATERAL, 06/14/2019 MAMMOGRAM DIAGNOSTIC LEFT, 04/23/2019 MAMMOGRAM SCREENING BILATERAL, and 03/23/2018 MAMMOGRAM SCREENING BILATERAL Findings Left The breasts are almost entirely fatty. There is no evidence of suspicious masses, calcifications, or other abnormal findings in the left breast. Unchanged ribbon biopsy marker within a stable circumscribed nodule at 3:00 middle depth left breast post benign biopsy. Right The breasts are almost entirely fatty. There is no evidence of suspicious masses, calcifications, or other abnormal findings in the right breast. Impression Bilateral No mammographic evidence of malignancy. BI-RADS® Category: 2 - Benign. Recommendation Screening mammogram in 1 year is recommended for both breasts. Digital breast tomosynthesis was performed. This digital mammogram has been analyzed with the computer aided detection system. Breast tissue can be either dense or not dense. Dense tissue makes it harder to find breast cancer on a mammogram and also raises the risk of developing breast cancer. Your breast tissue is not dense. Talk to your healthcare provider about breast density, risks for breast cancer, and your individual situation. This examination was performed at [address] [place] [address]. [phone] us Lo Chand DO RAD MAMMOGRAPHY Final Result documented in this encounter Visit Diagnoses Diagnosis Screening mammogram for breast cancer documented in this encounter Advance Directives * [...] Nesbitt Spouse Health Care Agent Care Teams Shredding Machine Operator Relationship Specialty Start Date End Date Lo Chand DO [address] [place] [address] [place] [address] PCP - General Internal Medicine 07/29/20 documented as of this encounter
--- OUTSIDE RECORDS SUMMARY | 2025-02-12 17:57 | External Medical Summary | Summary of Care ---
Author Name Unknown Organization [facility] Address [address] [place] [address] Phone [phone] Care Team Providers Care Instructor Product Inspection Name Role Phone Lo Chand DO Primary Care Provider Reason for Visit * Reason Onset Date Comments Advice 02/11/2025 Encounter Details Date Type Department Care Team ([facility] st Contact Info) Description 02/11/2025 Telephone Family Medicine [address] [phone] Lo Chand DO [address] [place], [place] [address] [id number] Advice Allergies Active Allergy Reactions Criticality Noted Date [...] as of this encounter (statuses as of 02/11/2025) Medications oxygen GAS Use as directed 2 L/min(Oxygen) as needed for Shortness of Breath. Use as needed with activity 2 Active OneTouch Verio In Vitro Strip (Glucose Blood)Indications: Type 2 diabetes mellitus with stage 4 chronic kidney disease, without long-term current use of insulin ([facility]) Test once daily Dx E11.9 100 Strip [...] DIRECTED FOR tube flushing 5 Active Nystatin 504458 UNIT/GM External Cream Apply topically to affected [...] as of this encounter (statuses as of 02/11/2025) Active Problems Problem Noted Date Diagnosed Date [...] as of this encounter (statuses as of 02/11/2025) Resolved Problems Problem Noted Date Diagnosed Date [...] as of this encounter (statuses as of 02/11/2025) Immunizations Name Administration Dates Next Due Pneumococcal Conjugate Vacc, 13 Valent (Prevnar) 06/05/2019 Pneumococcal Conjugate Vacci ne, 20-valent ([id number]) 11/11/2023 Pneumococcal Polysaccharide PPV23 (Pneumovax) 06/08/2016,03/01/2011 Season [...] Yovani Tinajero RN documented in this encounter Miscellaneous Notes * Telephone Encounter - Sylvie Cyr CRNP - 02/11/2025 11:25 AM EDT Heather Inboxologist Note Patient Call - Acute Sx Elise Nesbitt is an 69 year old female with suspected urinary tract Ordered urine, please advise patient to collect Further management at discretion of PCP NICHOL Cardenas 02/11/2025 11:25 AM Inboxologist Covering Provider All replies or additional communication must be routed to the PCP * Telephone Encounter - Toyin Moore RN - 02/11/2025 10:44 AM EDT [place]. Patient called in stating that she believes she has another UTI. She states she is having pain when urinating and frequency. She denies any odor or fever. She goes to [facility] on 02/20 to have her nephrostomy tube exchanged and would like an ABX before. Did make patient aware that she would need to come in for urine and she states that Dr. Chand know she gets this frequently and might just send in something for her. Please advise. Thank you. documented in this encounter Plan of Treatment Upcoming Encounters Date Type Department Care Team (Latest Contact Info) Description 02/25/2025 2:00 PM EDT Office Visit Nephrology [address] [place] [address] Maribel Orta PA-C [address] [place] [address] 05/14/2025 10:30 AM EDT Office Visit Cardiology [address] [place] [address] Francisco Javier Mancilla PA-C [address] [place] [address] 07/18/2025 10:15 AM EDT Hospital Encounter ENDO [facility], Endoscopy Room [facility] [address] [place] [phone] Irma Kidd MD [address] [place] [address] 07/18/2025 10:15 AM EDT - 07/18/2025 10:45 AM EDT Surgery ENDO [facility], Endoscopy Room [facility] [address] [place] [phone] Irma Kidd MD [address] [place] [address] COLONOSCOPY FLEXIBLE PROXIMAL DIAGNOSTIC 08/21/2025 3:10 PM EST Office Visit Family Medicine [address] [place] [phone] Lo Chand[address] [place] [address] Scheduled Orders Name Type Priority Associated Diagnoses Orde r Schedule URINALYSIS, REFLEX TO CULTURE (NOT FOR NEUTROPENIC PATIENTS) Lab Routine Obstruction of nephrostomy tube (HCC) UTI symptoms Expected: 02/11/2025, Expires: 02/11/2026 Scheduled Procedures Name Priority Associated Diagnoses Date/Ti [...] 12/10/2022, Additional history exists Hgb 01/23/2026 01/23/2025, 022 02/2025, 01/12/2024, Additional history exists O2 ASSESSMENT COMPLETED IN PAST YEAR FOR COPD 01/23/2026 01/23/2025 PTH 01/23/2026 01/23/2025, 02/0 11/2023, 05/07/2022, Additional history exists Mammogram 01/24/2026 01/24/2025, 1 04/2025, 11/24/2023, Additional history exists Lipid Panel 12/04/2029 12/04/2024, [...] Not on filedocumented as of this encounter Visit Diagnoses Diagnosis Obstruction of nephrostomy tube (HCC)- Primary Urinary complications UTI symptoms Other symptoms involving urinary system Special screening for malignant neoplasms, colon documented [...] Nesbitt Spouse Health Care Agent Care Teams Instructor Product Inspection Relationship Specialty Start Date End Date Lo Chand DO [address] [place] [address] [place] [address] PCP - General Internal Medicine 07/29/20 documented as of this encounter
--- OUTSIDE RECORDS SUMMARY | 2025-02-12 17:57 | External Medical Summary | Summary of Care ---
Author Name Unknown Organization [facility] Address [address] [place] [address] Phone [phone] Care Team Providers Care Group Director Name Role Phone Lo Chand DO Primary Care Provider Reason for Visit * Reason Onset Date Comments Appointment 01/23/2025 Colonoscopy Encounter Details Date Type Department Care Team ([facility] st Contact Info) Description 01/23/2025 Telephone Family Medicine [address] [place] [phone] Lo Chand DO [address] [place], [place] [address] [address] Appointment (Colonoscopy ) Allergies Active Allergy Reactions [...] as of this encounter (statuses as of 01/24/2025) Medications oxygen GAS Use as directed 2 L/min(Oxygen) as needed for Shortness of Breath. Use as needed with activity 2 Active OneTouch Verio In Vitro Strip (Glucose Blood)Indications: Type 2 diabetes mellitus with stage 4 chronic kidney disease, without long-term current use of insulin ([facility]) Test once daily Dx E11.9 [...] DIRECTED FOR tube flushing 5 Active Nystatin 496606 UNIT/GM External Cream Apply topically to affected [...] as of this encounter (statuses as of 01/24/2025) Active Problems Problem Noted Date Diagnosed Date [...] as of this encounter (statuses as of 01/24/2025) Resolved Problems Problem Noted Date Diagnosed Date [...] as of this encounter (statuses as of 01/24/2025) Immunizations Name Administration Dates Next Due Pneumococcal Conjugate Vacc, 13 Valent (Prevnar) 06/05/2019 Pneumococcal Conjugate Vacci ne, 20-valent ([id number]) 11/11/2023 Pneumococcal Polysaccharide PPV23 (Pneumovax) 06/08/2016,03/01/2011 Season [...] Date Author Yes 12/06/2021 10:37 PM EST Monieamanda Yovani brito, RN documented in this encounter [...] Care Team (Late st Contact Info) Description 01/24/2025 3:30 PM EDT Imaging Radiology [address] [place] [address] 02/25/2025 2:00 PM EDT Office Visit Nephrology [address] [place] [address] Maribel Orta PA-C [address] [place] [address] 05/14/2025 10:30 AM EDT Office Visit Cardiology [address] [place] [address] Francisco Javier Mancilla PA-C [address] [place] [address] 08/21/2025 3:10 PM EST Office Visit Family Medicine [address] [place] [phone] Chand, Lo Gómez, [address] [place] [address] Scheduled Procedures Name Priority Associated Diagnoses Date/Ti [...] COVID-19 Vaccine ( season) 2024 03/05/2021, 02/06/2021 PTH 11/11/2024 11/11/2023, 04/10, 10/17/2020, Additional history exists Mammogram 11/24/2024 11/24/2023, 12/09, 06/14/2019, Additional history exists GFR 06/03/2025 12/04/2024, 04/0 01/2024, 01/03/2024, Additional history exists Influenza Vaccine (FLU shot) (Season Ended) 2025 08/21/2021, 08/21/2021, 06/17/2020, Additional history exists Nephrology Referral 11/26/2025 11/26/2024 Phosphate 12/04/2025 12/04/2024, 02/0 11/2023, 11/15/2022, Additional history exists Albumin/Creatinine Ratio 12/07/2025 025, 04/05/2023, 12/10/2022, Additional history exists Hgb 01/23/2026 01/23/2025, 11/11, 01/12/2024, Additional history exists O2 ASSESSMENT COMPLETED IN PAST YEAR FOR COPD 01/23/2026 01/23/2025 Lipid Panel 12/04/2029 12/04/2024, 02/0 11/2023, 12/10/2022, [...] Name Relationship Healthcare Agent Relationship Communication Martin Rubinmariel Spouse Health Care Agent Care Teams Group Director Relationship Specialty Start Date End Date Lo Chand DO [address] [place] [address] [place] [address] PCP - General Internal Medicine 07/29/20 documented as of this encounter
--- OUTSIDE RECORDS SUMMARY | 2025-02-12 17:58 | External Medical Summary | Summary of Care ---
Author Name Unknown Organization [facility] Address [address] [place] [address] Phone [phone] Care Team Providers Care Service Observer Chief Name Role Phone Lo Chand DO Primary Care Provider Reason for Visit * Reason Onset Date Comments Health Maintenance 12/18/2024 Encounter Details Date Type Department Care Team ([facility] st Contact Info) Description 12/18/2024 Telephone Family Medicine [address] [place] [phone] Lo Chand DO [address] [place], [place] [address] [address] Health Maintenance Allergies Active Allergy Reactions Criticality Noted Date [...] as of this encounter (statuses as of 12/18/2024) Medications Acetaminophen ER 650 MG Oral Tablet Extended Release Take 1 Tablet by mouth every 8 hours as needed (take one tablet for knee pain up to 4 times daily). 09/26/20 19 Active oxygen GAS Use as directed 2 L/min(Oxygen) as needed for Shortness of Breath. Use as needed with activity 01/20/20 Active OneTouch Verio In Vitro Strip (Glucose Blood)Indications: Type 2 diabetes mellitus with stage 4 chronic kidney disease, without long-term current use of insulin ([facility]) Test once daily Dx E11.9 100 Strip 5 01/05/20 Active Ventolin HFA 108 (90 Base) MCG/ACT Inhalation Aerosol SolutionIndication s:COPD, group D, by GOLD 2017 classification ([facility]) Inhale by mouth 2 Puffs every 4 hours as needed for Cough or Shortness of Breath. 18 g 5 03/03/20 22 Active Additional Information Patient not taking.Reported on 12/04/2024 Riboflavin 400 MG Oral Tablet TAKE ONE TABLET IN THE MORNING 90 Tablet 1 10/18/19 23 Active Additional Information Patient not taking.Reported on 12/04/2024 Ferrous Gluconate 324 (37.5 Fe) MG Oral Tablet Take 1 Tablet by mouth daily with breakfast. 11/10/19 Active Folic Acid 1 MG Oral Tablet Take 1 Tablet by mouth in the morning. 11/10/19 23 Active Cyanocobalamin 100 MCG Oral Tablet Take 1 Tablet by mouth in the morning. 90 Tablet 1 12/23/19 23 Active Additional Information Patient not taking.Reported on 11/26/2024 Loperamide HCl 2 MG Oral Capsule (Imodium) Take 1 Capsule by mouth 4 times a day as needed for Diarrhea. Active Incontinence Supplies Disposable briefs size XL. Use as directed for urinary incontinence. 100 Each 5 10/07/20 23 Active Incontinence Supplies Poise pads. Use as directed for urinary incontinence. 100 Each 5 10/07/20 23 Active Tamsulosin HCl 0.4 MG Oral Capsule (Flomax) Take 1 Capsule by mouth in the morning. 12/23/19 24 Active hydrOXYzine HCl 25 MG Oral TabletIndications: Insomnia, unspecified type Take 1 Tablet by mouth every night at bedtime. 90 Tablet 3 03/16/20 Active Additional Information Patient not taking.Reported on 12/04/2024 Vitamin D3 50 MCG (1999 UT) Oral CapsuleIndications :Vitamin D deficiency TAKE ONE CAPSULE BY MOUTH IN THE MORNING Strength: 50 MCG (2000 UT) 90 Capsule 3 04/10/20 Active Additional Information Patient not taking.Reported on 12/04/2024 Midodrine HCl 5 MG Oral Tablet (Proamatine) Take 1 Tablet by mouth in the morning and 1 Tablet at noon and 1 Tablet before bedtime. 270 Tablet 2 04/10/20 Active oxyBUTYnin Chloride 5 MG Oral Tablet (Ditropan) Take 1 Tablet by mouth in the morning. In the morning.. 90 Tablet 2 04/10/20 Active Additional Information Patient not taking.Reported on 12/04/2024 MAGnesium-Oxide 400 (240 Mg) MG Oral Tablet (Magnesium Oxide -Mg Supplement) TAKE ONE TABLET BY MOUTH EVERY DAY 28 Tablet 07/05/20 Active Additional Information Patient not taking.Reported on 12/04/2024 Metoprolol Succinate ER 25 MG Oral Tablet Extended Release 24 Hour (toPROL XL) TAKE ONE TABLET TWICE DAILY 64 Tablet 07/05/20 Active Additional Information Patient not taking.Reported on 12/04/2024 Pantoprazole Sodium 40 MG Oral Tablet Delayed Release (Protonix)Indicati ons:Gastroesophage al reflux disease with esophagitis without hemorrhage Take 1 Tablet by mouth in the morning and 1 Tablet before bedtime. 56 Tablet 07/05/20 Active OXcarbazepine 300 MG Oral Tablet (Trileptal)Indicat ions:Dyslipidemia, goal LDL below 100 TAKE ONE TABLET BY MOUTH TWICE DAILY 180 Tablet 1 09/03/20 Active Additional Information Patient not taking.Reported on 12/04/2024 Atorvastatin Calcium 40 MG Oral Tablet (Lipitor)Indicatio ns:Dyslipidemia, goal LDL below 100 TAKE ONE TABLET BY MOUTH IN THE MORNING 90 Tablet 1 09/02/20 Active Additional Information Patient not taking.Reported on 12/04/2024 BD PosiFlush 0.9 % Intravenous Solution USE DIRECTED FOR tube flushing 10/11/19 Active Amoxicillin-Pot Clavulanate 875-125 MG Oral Tablet (Augmentin) Take 1 Tablet by mouth in the morning and 1 Tablet before bedtime. 10 days . 11/25/19 Active Nystatin 115344 UNIT/GM External Cream Apply topically to affected area 2 times a day. To affacted area for two weeks. 60 g 2 12/04/19 Active Ondansetron 4 MG Oral Tablet Disintegrating (Zofran)Indication s:Nausea without vomiting Place 1 Tablet on tongue every 8 hours as needed for Nausea or Vomiting. dissolve on tongue. 90 Tablet 1 12/04/19 Active documented as of this encounter (statuses as of 12/18/2024) Active Problems Problem Noted Date Diagnosed Date Obstruction of nephrostomy tube 12/04/2024 Stress incontinence 02/07/2024 Bipolar disorder, currently in remission, most recent episode unspecified 12/03/2022 Hypertensive kidney disease with chronic kidney disease stage IV 09/21/2021 Overview: Per CKD protocol Chronic kidney disease, stage 4 (severe) 021 Overview: Per CKD protocol 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 Senile osteoporosis 12/14/2019 CALI (obstructive sleep apnea) 09/04/2019 COPD, group D, by GOLD 2017 classification 09/04 Moderate persistent asthma without complication 09/04/2019 Diastolic dysfunction 08/15/2019 History of kidney stones 05/29/2019 Type 2 diabetes mellitus wit h hemoglobin A1c goal of less than 8.0% 05/29/2019 Anxiety state 04/05/2018 Obesity hypoventilation syndrome 03/10/2018 Oropharyngeal dysphagia 06/25/2016 Hyperlipidemia with target LDL less than 70 06/10 Renal cyst, left 01/29/2016 DDD (degenerative disc disease), lumbar 01/29/20 16 Pruritus 02/27/2013 History of colon cancer 01/27/2011 Rosacea 10/12/2002 Reflux esophagitis documented as of this encounter (statuses as of 12/18/2024) Resolved Problems Problem Noted Date Diagnosed Date Resolved Date Complicated UTI (urinary tract infection) 12/07/2021 12/09/2021 [...] III 05/29/2019 08/21/2020 Overview: Per CKD protocol Iron deficiency anemia 03/10/201804/05 Opioid withdrawal 12/24/2016 05/29/2019 Mitral valve insufficiency [...] as of this encounter (statuses as of 12/18/2024) Immunizations Name Administration Dates Next Due Pneumococcal Conjugate Vacc, 13 Valent (Prevnar) 06/05/2019 Pneumococcal Conjugate Vacci ne, 20-valent ([id number]) 11/11/2023 Pneumococcal Polysaccharide PPV23 (Pneumovax) 06/08/2016,03/01/2011 Season [...] encounter Miscellaneous Notes * Telephone Encounter - Romi Sebastian LPN - 12/18/2024 9:07 AM EDT Care Gaps Comprehensive Care Outreach Last Office/Telemedicine Visit: 12/04/2024 (in office), 12/03/2022 (telemedicine) Next Office Visit: 01/23/2025 Hemoglobin AIC Results: Lab Results Component Value Date/Time HEMOGLOBIN A1C - [facility] 5.5 12/04/2024 01:58 PM HEMOGLOBIN A1C - [facility] 5.6 11/11/2023 12:10 PM HEMOGLOBIN A1C - [facility] 4.8 04/05/2023 10:14 AM HEMOGLOBIN A1C - [facility] 5.6 09/18/2020 06:08 AM HEMOGLOBIN A1C - [facility] 6.0 (H) 08/29/2020 12:03 PM HEMOGLOBIN A1C - [facility] 6.2 (H) 04/07/2020 11:04 AM BP Readings from Last 1 Encounters: 12/04/24 106/72 Reviewed Health Maintenance below: Health Maintenance Topic Date Due Alpha-1 Antitrypsin Never done Zoster Vaccines (1 of 2) Never done Adult Wellness Visit Never done DTap/Tdap Vaccines (2 - Td or Tdap) 03/01/2021 Colorectal Cancer Screening 10/16/2021 Diabetic Eye Exam 03/26/2022 Diabetic Foot Exam 04/05/2024 Influenza Vaccine (FLU shot) (1) 06/10/2024 COVID-19 Vaccine (3 - season) 2024 PTH 11/11/2024 Mammogram 11/24/2024 Mamm Eye Colon Patient declined HM just home from hospital and still not feeling weel Care Gap Outreach Action Taken: Spoke to patient and Left message documented in this encounter Plan of Treatment Upcoming Encounters Date Type Department Care Team (Late st Contact Info) Description 01/23/2025 10:30 AM EDT Office Visit Family Medicine [address] [place] [phone] [place] [address] 02/25/2025 2:00 PM EDT Office Visit Nephrology [address] [place] [address] Maribel Orta PA-C [address] [facility] [place] [address] 05/14/2025 10:30 AM EDT Office Visit Cardiology [address] [place] [address] Francisco Javier Mancilla PA-C [address] [place] [address] Health Maintenance Due Date Last Done Comments Alpha-1 Antitrypsin 1971 Cologuard 1998 Fecal Occult Blood Test 1998 Zoster Vaccines (1 of 2) 2003 Sigmoidoscopy 01/03/2018 01/03/2013 Adult Wellness Visit 2019 DTap/Tdap Vaccines (2 - Td or Tdap) 03/01/2021 03/01/2011 Colonoscopy 10/16/2021 10/16/2019, 12/08, 12/23/2017, Additional history exists Colorectal Cancer Screening 10/16/2021 Diabetic Eye Exam 03/26/2022 03/26/2021, , 10/11/2019, Additional history exists Diabetic Foot Exam 04/05/2024 04/05/2023, 0 05/07/2022, 07/07/2020, Additional history exists COVID-19 Vaccine ( season) 2024 03/05/2021, 02/06/2021 Influenza Vaccine (FLU shot) (#1) 2024 08/21/2021, 08/21/2021, 06/17/2020, Additional history exists PTH 11/11/2024 11/11/2023, 04/10, 10/17/2020, Additional history exists Mammogram 11/24/2024 11/24/2023, 12/09, 06/14/2019, Additional history exists GFR 06/03/2025 12/04/2024, 04/0 01/2024, 01/03/2024, Additional history exists HbA1c 06/03/2025 12/04/2024, 02/0 11/2023, 04/05/2023, Additional history exists Nephrology Referral 11/26/2025 11/26/2024 Hgb 12/04/2025 12/04/2024, 04/0 01/2024, 11/11/2023, Additional history exists O2 ASSESSMENT COMPLETED IN PAST YEAR FOR COPD 12/04/2025 12/04/2024 Phosphate 12/04/2025 12/04/2024, 0 11/2023, 11/15/2022, Additional history exists Albumin/Creatinine Ratio 12/07/2025 025, 04/05/2023, 12/10/2022, Additional history exists Lipid Panel 12/04/2029 12/04/2024, 0 11/2023, 12/10/2022, Additional history exists RETIRED - COLONOSCOPY-EVERY 2 YRS AGES 18-100 Discontinued 12/29/2021, 10/16/2019, 12/23/2017, Additional history exists Pneumococcal Vaccine: 50+ Years [...] Nesbitt Spouse Health Care Agent Care Teams Service Observer Chief Relationship Specialty Start Date End Date Lo Chand DO [address] [place] [address] [place] [id number] PCP - General Internal Medicine 07/29/20 documented as of this encounter
--- OUTSIDE RECORDS SUMMARY | 2025-02-12 17:58 | External Medical Summary | Summary of Care ---
Author Name Unknown Organization [facility] Address [address] [place] [address] Phone [phone] Care Team Providers Care Personal Support Worker Name Role Phone Mahi Ortega DO Primary Care Provider Reason for Visit * Reason Comments Outpatient Testing Encounter Details Date Type Department Care Team ([facility] st Contact Info) Description 12/04/2024 2:00 PM EST Laboratory Laboratory [address] [place] [phone] [place] [id number] Elevated liver enzymes*; Hyperlipidemia with target LDL less than 70; Chronic kidney disease, stage 4 (severe) ([facility]); Type 2 diabetes mellitus with hemoglobin A1c goal of less than 8.0% ([facility]); Abnormal CBC Allergies Active Allergy Reactions Criticality Noted Date [...] as of this encounter (statuses as of 12/31/2024) Medications Acetaminophen ER 650 MG Oral Tablet [...] disease, without long-term current use of insulin ([facility]) Test once daily Dx E11.9 100 Strip 5 01/05/20 Active Ventolin HFA 108 (90 Base) MCG/ACT Inhalation Aerosol SolutionIndication s:COPD, group D, by GOLD 2017 classification ([facility]) Inhale by mouth 2 Puffs [...] Tablet by mouth daily with breakfast. 11/10/19 23 Active Folic Acid 1 MG Oral Tablet [...] for urinary incontinence. 100 Each 5 10/07/20 Active Incontinence Supplies Poise pads. Use as directed for urinary incontinence. 100 Each 5 10/07/20 23 Active Tamsulosin HCl 0.4 MG Oral Capsule (Flomax) Take 1 Capsule by mouth in the morning. 12/23/19 Active hydrOXYzine HCl 25 MG Oral TabletIndications: [...] and 1 Tablet before bedtime. 56 Tablet 11 07/05/20 Active OXcarbazepine 300 MG Oral Tablet [...] Tablet before bedtime. 10 days . 11/25/19 25 Active Nystatin 361025 UNIT/GM External Cream Apply topically to affected area 2 times a day. To affacted area for two weeks. 60 g 2 12/04/19 25 Active Ondansetron 4 MG Oral Tablet Disintegrating (Zofran)Indication s:Nausea without vomiting Place 1 Tablet on tongue every 8 hours as needed for Nausea or Vomiting. dissolve on tongue. 90 Tablet 1 12/04/19 25 Active Midodrine HCl 5 MG Oral Tablet (Proamatine) Take 1 Tablet by mouth in the morning and 1 Tablet at noon and 1 Tablet before bedtime. 270 Tablet 2 04/10/20 24 025 Discontin ued(Refil l) oxyBUTYnin Chloride 5 MG Oral Tablet (Ditropan) Take 1 Tablet by mouth in the morning. In the morning.. 90 Tablet 2 04/10/20 24 025 Discontin ued(Refil l) documented as of this encounter (statuses as of 12/31/2024) Active Problems Problem Noted Date Diagnosed Date [...] as of this encounter (statuses as of 12/31/2024) Resolved Problems Problem Noted Date Diagnosed Date [...] as of this encounter (statuses as of 12/31/2024) Immunizations Name Administration Dates Next Due Pneumococcal Conjugate Vacc, 13 Valent (Prevnar) 06/05/2019 Pneumococcal Conjugate Vacci ne, 20-valent ([id number]) 11/11/2023 Pneumococcal Polysaccharide PPV23 (Pneumovax) 06/08/2016,03/01/2011 Season [...] documented in this encounter Miscellaneous Notes * Addendum Note - Mahi Ortega DO - 12/31/2024 10:10 AM EDTAddended by: MAHI ORTEGA on: 12/31/2024 10:10 AM Modules accepted: Orders documented in this encounter Plan of Treatment Upcoming Encounters Date Type Department Care Team (Late st Contact Info) Description 01/23/2025 10:30 AM EDT Office Visit Family Medicine [address] [place] [phone] Mahi Ortega DO [address] [place] [address] [place] [address] 02/25/2025 2:00 PM EDT Office Visit Nephrology [address] [place] [address] Maribel Orta PA-C [address] [place] [address] 05/14/2025 10:30 AM EDT Office Visit Cardiology [address] [place] [address] Francisco Javier Mancilla PA-C [address] [place] [address] Scheduled Orders Name Type Priority Associated Diagnoses Orde r Schedule CBC Lab Routine Abnormal CBC Expected: 12/31/2024 (Approximate), Expires: 12/31/2025 HEPATIC FUNCTION PANEL Lab Routine Elevated liver enzymes Expected: 12/31/2024 (Approximate), Expires: 12/31/2025 Health Maintenance Due Date Last Done Comments [...] FOR COPD 12/04/2025 12/04/2024 Phosphate 12/04/2025 12/04/2024, 02/0 11/2023, 11/15/2022, Additional history exists Albumin/Creatinine Ratio 12/07/2025 025, 04/05/2023, 12/10/2022, Additional history exists Lipid Panel 12/04/2029 12/04/2024, 02/0 11/2023, 12/10/2022, Additional history exists RETIRED - [...] Procedure Name Priority Date/Time Associated Diagnosis Comments ALBUMIN / CREATININE RATIO, URINE Routine 12/07/2024 2:09 PM EST Chronic kidney disease, stage 4 (severe) (HCC) ANEMIA REFLEX CHEMISTRY HOLD Routine 12/04/2024 1:58 PM EST Chronic kidney disease, stage 4 (severe) (HCC) ANEMIA CBC Routine 12/04/2024 1:58 PM EST Chronic kidney disease, stage 4 (severe) (HCC) DIFFERENTIAL, AUTOMATED Routine 12/04/2024 1:58 PM EST Chronic kidney disease, stage 4 (severe) (HCC) DIFFERENTIAL, AUTOMATED Routine 12/04/2024 1:58 PM EST Chronic kidney disease, stage 4 (severe) (HCC) RETICULOCYTE PANEL Routine 12/04/2024 1: 58 PM EST Chronic kidney disease, stage 4 (severe) (HCC) LIPID PANEL WITH DIRECT LDL IF TG IS HIGH Routine 12/04/2024 1:58 PM EST Hyperlipidemia with target LDL less than 70 HEMOGLOBIN A1C Routine 12/04/2024 1:58 PM EST Type 2 diabetes mellitus with hemoglobin A1c goal of less than 8.0% (HCC) COMPREHENSIVE METABOLIC PANEL Routine 12/04/2024 1:58 PM EST Chronic kidney disease, stage 4 (severe) (HCC) Hyperlipidemia with target LDL less than 70 FOLIC ACID Routine 12/04/2024 1:58 PM EST Chronic kidney disease, stage 4 (severe) (HCC) IRON SCREEN, INCLUDING TIBC Routine 12/04/2024 1:58 PM EST Chronic kidney disease, stage 4 (severe) (HCC) PHOSPHORUS Routine 12/04/2024 1:58 PM EST Chronic kidney disease, stage 4 (severe) (HCC) TSH Routine 12/04/2024 1:58 PM EST Chronic kidney disease, stage 4 (severe) (HCC) FERRITIN Routine 12/04/2024 1:58 PM EST Chronic kidney disease, stage 4 (severe) (HCC) VITAMIN B12 Routine 12/04/2024 1:58 PM EST Chronic kidney disease, stage 4 (severe) (HCC) documented in this encounter Results * (ABNORMAL) ALBUMIN / CREATININE RATIO, URINE (12/07/2024 2:09 PM EST) Albumin, Random Urine 46.00 mg/dL 12/08/2024 12:38 AM EST LAB[facility]ORY [facility] Creatinine, Random Urine 197 mg/dL 12/08/2024 12:38 AM EST [facility] Albumin / Creatinine Ratio, Urine 234(H) <30 mg/g Creat 12/08/2024 12:38 AM EST [facility] Urine Urine specimen obtained by clean catch procedure / Unknown Non-blood Collection / Unknown 12/07/2024 2:09 PM EST 12/07/2024 2:10 PM EST Narrative [facility]ORY [facility] - 12/08/2024 12:38 AM EST Normal: <30 mg/g creatinine High: 30-300 mg/g creatinine Very High: >300 mg/g creatinine Nephrotic: >2200 mg/g creatinine us Mahi Ortega DO LAB URINE ORDERABLES Final R esult LAB[facility]ATORY [facility] [address] [place] [address] * VITAMIN B12 (12/04/2024 1:58 PM EST) Pathologist [facility] [place] Vitamin B12 869 232 - 1,245 pg/mL 12/05/2024 3:53 AM EST [facility] Blood Venous blood specimen / Unknown Venipuncture / Unknown 12/04/2024 1:58 PM EST 12/04/2024 1:58 PM EST us Mhai Ortega DO LAB BLOOD ORDERABLES Final R esult [facility] [address] [place] [address] * FOLIC ACID (12/04/2024 1:58 PM EST) [facility] Folic Acid 5.2 >4.5 ng/mL 12/05/2024 3:53 AM EST [facility] Blood Venous blood specimen / Unknown Venipuncture / Unknown 12/04/2024 1:58 PM EST 12/04/2024 1:58 PM EST us Mahi Ortega DO LAB BLOOD ORDERABLES Final R esult LABORATORY [address] [address] * TSH (12/04/2024 1:58 PM EST) [facility] TSH 0.44 0.27 - 4.20 uIU/mL 12/05/2024 3:37 AM EST [facility] Blood Venous blood specimen / Unknown Venipuncture / Unknown 12/04/2024 1:58 PM EST 12/04/2024 1:58 PM EST Mahi Ortega DO LAB BLOOD ORDERABLES Final R esult [facility] [address] [place] [address] * (ABNORMAL) FERRITIN (12/04/2024 1:58 PM EST) Ferritin 151(H) 13 - 150 ng/mL 12/05/2024 3:53 AM EST [facility] Comment:Postmenopausal women have higher ferritin levels than pre-menopausal women. The above reference interval is based on pre-menopausal women. Blood Venous blood specimen / Unknown Venipuncture / Unknown 12/04/2024 1:58 PM EST 12/04/2024 1:58 PM EST Mahi Gómez Ortega LAB BLOOD ORDERABLES Final R esult Performing Organization Address [facility] de Phone Number LAB[facility]ATORY [facility] [address] [place] [address] * (ABNORMAL) IRON SCREEN, INCLUDING TIBC (12/04/2024 1:58 PM EST) Pathologist [facility] [place] Iron 41 33 - 151 ug/dL 12/05/2024 3:53 AM EST [facility] Iron Binding Capacity 304 250 - 425 ug/dL 12/05/2024 3:53 AM EST [facility] Transferrin Saturation Percent 13(L) 15 - 55 % 12/05/2024 3:53 AM EST [facility] Blood Venous blood specimen / Unknown Venipuncture / Unknown 12/04/2024 1:58 PM EST 12/04/2024 1:58 PM EST Mahi Ortega LAB BLOOD ORDERABLES [facility] Performing Organization Address [facility] de Phone Number [facility] [address] [place] [address] * (ABNORMAL) RETICULOCYTE PANEL (12/04/2024 1:58 PM EST) Reticulocyte Percent 3.15(H) 0.80 - 1.90 % 12/04/2024 11:43 PM EST [facility] Absolute Reticulocyte 109.0(H) 31.3 - 100.1 K/uL 12/04/2024 11:43 PM EST [facility] Immature Reticulocyte Fraction 22.0(H) 2.5 - 20.6 % 12/04/2024 11:43 PM EST [facility] Reticulocyte Hemoglobin 31.2 29.7 - 37.4 pg 12/04/2024 11:43 PM EST [facility] Blood Venous blood specimen / Unknown Venipuncture / Unknown 12/04/2024 1:58 PM EST 12/04/2024 1:58 PM EST [facility] Dalia Ortega LAB BLOOD ORDERABLES Final R esult Performing Organization Address City/[facility]/ZIP Co de Phone Number [facility] [address] [place] [address] * ANEMIA REFLEX CHEMISTRY HOLD (12/04/2024 1:58 PM EST) Blood Venous blood specimen / Unknown Venipuncture / Unknown 12/04/2024 1:58 PM EST 12/04/2024 1:58 PM EST [facility] BLOOD ORDERABLES Final R esult Performing Organization Address City/[facility] Co de Phone Number [facility] [address] [place] [address] * (ABNORMAL) DIFFERENTIAL, AUTOMATED (12/04/2024 1:58 PM EST) WBC 14.15(H) 4.00 - 10.80 K/uL 12/04/2024 11:32 PM EST [facility] Neutrophils % 74.6 40.0 - 75.0 % 12/04/2024 11:32 PM EST [facility] Lymphocytes % 14.1(L) 18.0 - 42.0 % 12/04/2024 11:32 PM EST [facility] Monocytes % 7.7 1.0 - 11.0 % 12/04/2024 11:32 PM EST [facility] Eosinophils % 1.6 0.0 - 6.0 % 12/04/2024 11:32 PM EST [facility] Basophils % 0.8 0.0 - 2.0 % 12/04/2024 11:32 PM EST [facility] Immature Granulocytes % 1.2 0.0 - 2.0 % 12/04/2024 11:32 PM EST [facility] Absolute Neutrophils 10.56(H) 1.80 - 7.70 K/uL 12/04/2024 11:32 PM EST [facility] Absolute Lymphocytes 2.00 1.00 - 4.80 K/ul 12/04/2024 11:32 PM EST [facility] Absolute Monocytes 1.09 0.00 - 1.10 K/uL 12/04/2024 11:32 PM EST [facility] Absolute Eosinophils 0.22 0.00 - 0.70 K/uL 12/04/2024 11:32 PM EST [facility] Absolute Basophils 0.11 0.00 - 0.20 K/uL 12/04/2024 11:32 PM EST [facility] Absolute Immature Granulocytes 0.17 0.00 - 0.20 K/uL 12/04/2024 11:32 PM EST [facility] Blood Venous blood specimen / Unknown Venipuncture / Unknown 12/04/2024 1:58 PM EST 12/04/2024 1:58 PM EST us Mahi Ortega DO LAB BLOOD ORDERABLES Final R esult Performing Organization Address City/State/[facility] Co de Phone Number [facility] [address] [place] [address] * (ABNORMAL) ANEMIA CBC (12/04/2024 1:58 PM EST) WBC 14.15(H) 4.00 - 10.80 K/uL 12/04/2024 11:32 PM EST [facility] RBC 3.51 3.85 - 5.15 M/uL 12/04/2024 11:32 PM EST [facility] HGB 10.6(L) 12.0 - 15.3 g/dL 12/04/2024 11:32 PM EST [facility] Comment: Anemia reflex testing triggers on a HGB < 12.0 for Females and HGB < 13.0 for Males in accordance with the WHO Anemia Guidelines Anemia reflex testing triggers on a HGB < 12.0 for Females and HGB < 13.0 for Males in accordance with the WHO Anemia Guidelines HCT 36.3 36.0 - 45.2 % 12/04/2024 11:32 PM EST [facility] MCV 103.4 81.5 - 97.5 fL 12/04/2024 11:32 PM EST [facility] MCH 30.2 27.0 - 34.0 pg 12/04/2024 11:32 PM EST [facility] MCHC 29.2 32.0 - 36.0 g/dL 12/04/2024 11:32 PM EST [facility] RDW 13.5 11.5 - 15.5 % 12/04/2024 11:32 PM EST [facility] PLT 578(H) 140 - 400 K/uL 12/04/2024 11:32 PM EST [facility] MPV 11.5 6.6 - 11.1 fL 12/04/2024 11:32 PM EST [facility] nRBCs 0 <=0 /100 WBCs 12/04/2024 11:32 PM EST [facility] Blood Venous blood specimen / Unknown Venipuncture / Unknown 12/04/2024 1:58 PM EST 12/04/2024 1:58 PM EST us Mahi Ortega DO LAB BLOOD ORDERABLES Final R esult Performing Organization Address City/[facility] Co de Phone Number [facility] [address] [place] [address] * HEMOGLOBIN A1C (12/04/2024 1:58 PM EST) [facility] Hemoglobin A1C 5.5 4.0 - 5.6 % 12/05/2024 3:23 AM EST [facility] Comment:The use of HbA1c to monitor glycemic status is based on normal hemoglobin and HbA composition. This test should not be used in patients with abnormal hemoglobin that affects the half life of the red blood cell or the in vivo glycation rates. Estimated Average Glucose 111 <126 mg/dL 12/05/2024 3:23 AM EST [facility] Blood Venous blood specimen / Unknown Venipuncture / Unknown 12/04/2024 1:58 PM EST 12/04/2024 1:58 PM EST us Mahi Ortega DO LAB BLOOD ORDERABLES Final R esult Performing Organization Address [facility] Co de Phone Number [facility] [address] [place] [address] * PHOSPHORUS (12/04/2024 1:58 PM EST) Phosphorus 3.7 2.5 - 4.8 mg/dL 12/05/2024 3:20 AM EST [facility] Blood Venous blood specimen / Unknown Venipuncture / Unknown 12/04/2024 1:58 PM EST 12/04/2024 1:58 PM EST us Mahi Dalia Ortega DO LAB BLOOD ORDERABLES Final R esult [facility] [address] [place] [address] * (ABNORMAL) COMPREHENSIVE METABOLIC PANEL (12/04/2024 1:58 PM EST) BUN 16 6 - 20 mg/dL 12/05/2024 3:20 AM EST [facility] CREATININE 2.0(H) 0.5 - 1.0 mg/dL 12/05/2024 3:20 AM EST [facility] EGFR 26(L) >=60 mL/min 12/05/2024 3:20 AM EST [facility] Comment:eGFR is calculated b ased on the CKD-EPI 2020 equation. SODIUM 139 135 - 146 mmol/L 12/05/2024 3:20 AM EST [facility] POTASSIUM 4.5 3.5 - 5.1 mmol/L 12/05/2024 3:20 AM EST [facility] CHLORIDE 109(H) 98 - 107 mmol/L 12/05/2024 3:20 AM EST [facility] CO2 14(L) 22 - 32 mmol/L 12/05/2024 3:20 AM EST [facility] ANION GAP 16(H) 7 - 15 mmol/L 12/05/2024 3:20 AM EST [facility] GLUCOSE 103 70 - 120 mg/dL 12/05/2024 3:20 AM EST [facility] Albumin 3.7(L) 3.8 - 5.0 g/dL 12/05/2024 3:20 AM EST [facility] AST 74(H) 10 - 35 U/L 12/05/2024 3:20 AM EST [facility] Alkaline Phosphatase 252(H) 35 - 130 U/L 12/05/2024 3:20 AM EST [facility] Bilirubin, Total 0.3 <=1.2 mg/dL 12/05/2024 3:20 AM EST LAB[facility]ATORY [facility] CALCIUM 9.9 8.4 - 10.2 mg/dL 12/05/2024 3:20 AM EST [facility] Protein 7.6 6.0 - 8.3 g/dL 12/05/2024 3:20 AM EST [facility] ALT 91(H) 10 - 35 U/L 12/05/2024 3:20 AM EST [facility] Blood Venous blood specimen / Unknown Venipuncture / Unknown 12/04/2024 1:58 PM EST 12/04/2024 1:58 PM EST Mahi Forbesjyothi Ortega DO LAB BLOOD ORDERABLES Final R esult [facility] [address] [place] [address] * (ABNORMAL) LIPID PANEL WITH DIRECT LDL IF TG IS HIGH (12/04/2024 1:58 PM EST) Triglycerides 169 <=174 mg/dL 12/05/2024 3:19 AM EST [facility] Comment: Triglyceride Reference Ranges (mg/dL): <150 Acceptable 150-174 Borderline high 175-499 High >=500 Very high Cholesterol 178 <200 mg/dL 12/05/2024 3:19 AM EST [facility] Comment: Total Cholesterol Reference Ranges (mg/dL): <200 Desirable 200-239 Borderline high >=240 High HDL Cholesterol 44(L) >49 mg/dL 3:19 AM EST [facility] Comment: HDL Cholesterol Reference Ranges (mg/dL): >=60 High (Desirable) <50 Low (Undesirable) For Females <40 Low (Undesirable) For Males Non-HDL Cholesterol 134 <=159 mg/dL 12/05/2024 3:19 AM EST [facility] Comment: Non-HDL Cholesterol Reference Range (mg/dL): <100 Target level for high risk ASCVD patient <130 Optimal for general population 130-159 Near optimal for general population 160-189 Borderline High 190-219 High >=220 Very High LDL Cholesterol 100 <=129 mg/dL 12/05/2024 3:19 AM EST [facility] Comment: LDL Cholesterol Reference Ranges (mg/dL): <70 Target level for high risk ASCVD patient <100 Optimal for general population 100-129 Near optimal for general population 130-159 Borderline high 160-189 High >=190 Very high Blood Venous blood specimen / Unknown Venipuncture / Unknown 12/04/2024 1:58 PM EST 12/04/2024 1:58 PM EST Mahi Ortega DO LAB BLOOD ORDERABLES Final R esult [facility] [address] [facility] [place] [address] documented in this encounter Visit Diagnoses Diagnosis Elevated liver enzymes- Primary Nonspecific elevation of levels of transaminase or lactic acid dehydrogenase (LDH) Hyperlipidemia with target LDL less than 70 Other and unspecified hyperlipidemia Chronic kidney disease, stage 4 (severe) (HCC) Type 2 diabetes mellitus with hemoglobin A1c goal of less than 8.0% (HCC) Abnormal CBC Other abnormal blood chemistry documented in this encounter Advance Directives * [...] Nesbitt Spouse Health Care Agent Care Teams Personal Support Worker Relationship Specialty Start Date End Date Mahi Ortega DO [address] [place] [address] [place] [phone] PCP - General Internal Medicine 07/29/20 documented as of this encounter
--- OUTSIDE RECORDS SUMMARY | 2025-02-12 17:58 | External Medical Summary ---
Author Name Unknown Address Unknown Organization K01:[facility]ORY [facility] - [address] [place] [address] Laboratory Report Ordering Provider Test Date Status SHANNON CHAMPAGNE 01/23/2025 11:19:53 Final Observation Date Value Abnormality Reference (Units ) Status Iron 01/23/2025 11:19:53 92 33-151 (ug /dL) Final Iron-binding capacity 01/23/2025 11:19:53 315 250-425 (ug/dL) Final Transferrin Sat % 01/23/2025 11:19:53 29 15 -55 (%) Final Performing Location [facility] - [address] [place] [address]
--- OUTSIDE RECORDS SUMMARY | 2025-02-12 17:58 | External Medical Summary ---
Author Name Unknown Address Unknown Organization K01:LAB[facility]ATORY [facility] - [facility] [address] [place] [address] Laboratory Report Ordering Provider Test Date Status SHANNON CHAMPAGNE 01/23/2025 11:19:53 Final Observation Date Value Abnormality Reference (Units ) Status BUN 01/23/2025 11:19:53 29 Above high normal 6-20 (mg/dL) Final Creatinine 01/23/2025 11:19:53 2.5 Above high normal 0.5-1.0 (mg/dL) Final Glomerular filtration rate/1.73 sq M.predicted [Volume Rate/Area] in Serum, Plasma or Blood by Creatinine-based formula (CKD-EPI) 01/23/2025 11:19:53 21 Below low normal >=60 (mL/min) Final eGFR is calculated based on the CKD-EPI 2020 equation. Sodium 01/23/2025 11:19:53 141 135-146 (m mol/L) Final Potassium 01/23/2025 11:19:53 4.7 3.5-5.1 (m mol/L) Final Cl 01/23/2025 11:19:53 110 Above high normal 98 -107 (mmol/L) Final CO2 01/23/2025 11:19:53 16 Below low normal 22- 32 (mmol/L) Final Anion gap 01/23/2025 11:19:53 15 7-15 (mmol /L) Final Glucose 01/23/2025 11:19:53 99 70-120 (mg /dL) Final Calcium 01/23/2025 11:19:53 10.1 8.4-10.2 ( mg/dL) Final Performing Location LABORATORY [facility] - [address] [place] [address]
--- OUTSIDE RECORDS SUMMARY | 2025-02-12 17:58 | External Medical Summary | Summary of Care ---
Author Name Unknown Organization [facility] Address [address] [place] [address] Phone [phone] Care Team Providers Care Senior Program Manager Name Role Phone Lo Chand DO Primary Care Provider [phone] Reason for Visit * Reason Onset Date Comments Medication Refill 12/20/2024 Encounter Details Date Type Department Care Team ([facility] st Contact Info) Description 12/20/2024 Refill Family Medicine [address] [phone] Lo Chand DO [address] [place] [address] [place] [address] Allergies Active Allergy Reactions Criticality Noted Date [...] as of this encounter (statuses as of 12/21/2024) Medications Acetaminophen ER 650 MG Oral Tablet [...] disease, without long-term current use of insulin ([facility]) Test once daily Dx E11.9 100 Strip 5 01/05/20 Active Ventolin HFA 108 (90 Base) MCG/ACT Inhalation Aerosol SolutionIndication s:COPD, group D, by GOLD 2017 classification ([facility]) Inhale by mouth 2 Puffs every 4 [...] BY MOUTH EVERY DAY 28 Tablet 11 07/05/20 Active Additional Information Patient not taking.Reported on 12/04/2024 Metoprolol Succinate ER 25 MG Oral Tablet Extended Release 24 Hour (toPROL XL) TAKE ONE TABLET TWICE DAILY 64 Tablet 11 07/05/20 Active Additional Information Patient not taking.Reported [...] 10 days . 11/25/19 25 Active Nystatin 186807 UNIT/GM External Cream Apply topically to affected area 2 times a day. To affacted area for two weeks. 60 g 2 12/04/19 25 Active Ondansetron 4 MG Oral Tablet Disintegrating (Zofran)Indication s:Nausea without vomiting Place 1 Tablet on tongue every 8 hours as needed for Nausea or Vomiting. dissolve on tongue. 90 Tablet 1 12/04/19 25 Active oxyBUTYnin Chloride 5 MG Oral Tablet (Ditropan) Take 1 Tablet by mouth in the morning. In the morning.. 90 Tablet 2 12/22/19 25 Active Midodrine HCl 5 MG Oral Tablet (Proamatine) Take 1 Tablet by mouth in the morning and 1 Tablet at noon and 1 Tablet before bedtime. 270 Tablet 2 12/22/19 25 Active Midodrine HCl 5 MG Oral [...] as of this encounter (statuses as of 12/21/2024) Active Problems Problem Noted Date Diagnosed Date [...] as of this encounter (statuses as of 12/21/2024) Resolved Problems Problem Noted Date Diagnosed Date [...] as of this encounter (statuses as of 12/21/2024) Immunizations Name Administration Dates Next Due Pneumococcal Conjugate Vacc, 13 Valent (Prevnar) 06/05/2019 Pneumococcal Conjugate Vacci ne, 20-valent ([id number]) 11/11/2023 Pneumococcal Polysaccharide PPV23 (Pneumovax) 06/08/2016,03/01/2011 Season [...] encounter Miscellaneous Notes * Telephone Encounter - Richar Navas MD - 12/21/2024 9:33 AM EDTSigned Prescriptions: Disp Refills oxyBUTYnin Chloride 5 MG Oral Tablet (Ditr*90 Tab*2 Sig: Take 1 Tablet by mouth in the morning. In the morning..Authorizing Provider: RICHAR NAVAS Midodrine HCl 5 MG Oral Tablet (Proamatine)270 Ta*2 Sig: Take 1 Tablet by mouth in the morning and 1 Tablet at noon and 1 Tablet before bedtime.Authorizing Provider: RICHAR NAVAS * Telephone Encounter - Ricahr Navas MD - 12/21/2024 9:33 AM EDTSigned Prescriptions: Disp Refills oxyBUTYnin Chloride 5 MG Oral Tablet (Ditr*90 Tab*2 Sig: Take 1 Tablet by mouth in the morning. In the morning.. Authorizing Provider: RICHAR NAVAS Midodrine HCl 5 MG Oral Tablet (Proamatine)270 Ta*2 Sig: Take 1 Tablet by mouth in the morning and 1 Tablet at noon and 1 Tablet before bedtime. Authorizing Provider: RICHAR DOOLEY * Telephone Encounter - Leyda Yin CMA - 12/21/2024 7:47 AM EDTPending Prescriptions: Disp Refills oxyBUTYnin Chloride 5 MG Oral Tablet (Ditr*90 Tab*2 Sig: Take 1 Tablet by mouth in the morning. In the morning.. Midodrine HCl 5 MG Oral Tablet (Proamatine)270 Ta*2 Sig: Take 1 Tablet by mouth in the morning and 1 Tablet at noon and 1 Tablet before bedtime. ---- * Telephone Encounter - Karoline Soctt, CALI - 12/20/2024 1:59 PM EDT Did you pend patient's preferred pharmacy and medication before forwarding?yes Pharmacy: [address] [place] Pending Prescriptions: Disp Refills oxyBUTYnin Chloride 5 MG Oral Tablet (Dit*90 Tab*2 Sig: Take 1 Tablet by mouth in the morning. In the morning.. Midodrine HCl 5 MG Oral Tablet (Proamatin*270 Ta*2 Sig: Take 1 Tablet by mouth in the morning and 1 Tablet at noon and 1 Tablet before bedtime. Last Visit: 12/04/2024 (in office), 12/03/2022 (telemedicine) Next Visit: 01/23/2025 If no future appointments scheduled, and last appointment is greater than a year ago, please schedule patient for a follow-up appointment Last date the medication was ordered: 04.10.24 Is this request for a controlled substance?No Urine Drug Screen: Results for orders placed or performed during the hospital encounter of 09/17/20 TOX SCREEN, URINE, W/ CONFIRMATION Result Value Amphetamine Screen, U NEGATIVE Benzodiazepines Screen, U NEGATIVE Cannabinoids Screen, U NEGATIVE Cocaine Metabolite Screen, U NEGATIVE HYDROCODONE POSITIVE (A) Morphine/Codeine Screen, U NEGATIVE Methadone Metabolite Screen, U NEGATIVE Oxycodone Screen, U NEGATIVE TOX COMMENT THE ABOVE SCREENING RESULTS ARE PRESUMPTIVE AND CAN ONLY BE USED FOR MEDICAL PURPOSES. POSITIVE RESULTS REFLEX TO CONFIRMATORY TESTING. Cutoff Concentration *Note: Due to a large number of results and/or encounters for the requested time period, some results have not been displayed. A complete set of results can be found in Results Review. Patient Phone Numbers Labs: Lab Results Component Value Date/Time CREAT 2.0 (H) 12/04/2024 01:58 PM CREAT 1.93 (A) 12/24/2022 12:00 AM CREAT 1.1 (H) 09/25/2020 03:56 AM POTASSIUM 4.5 12/04/2024 01:58 PM POTASSIUM 4.2 12/24/2022 12:00 AM POTASSIUM 3.5 09/25/2020 03:56 AM TSH 0.44 12/04/2024 01:58 PM TSH 0.916 10/30/2020 12:00 AM TSH 1.74 08/15/2019 09:10 AM LDL 100 12/04/2024 01:58 PM LDL 107 04/07/2020 11:04 AM LDL NOT APPLICABLE 04/07/2020 11:04 AM ALT 91 (H) 12/04/2024 01:58 PM ALT 29 04/07/2020 11:04 AM HGBA1C 5.5 12/04/2024 01:58 PM HGBA1C 5.6 09/18/2020 06:08 AM documented in this encounter Plan of Treatment Upcoming Encounters Date Type Department Care Team (Late st Contact Info) Description 01/23/2025 10:30 AM EDT Office Visit Family Medicine [address] [place] [phone] [place] [address] 02/25/2025 2:00 PM EDT Office Visit Nephrology [address] [place] [address] Maribel Orta [facility]-C [facility] [place] [address] 05/14/2025 10:30 AM EDT Office Visit Cardiology [address] [place] [address] Francisco Javier Mancilla PA-C [address] [place] [address] Health Maintenance Due Date Last Done Comments [...] FOR COPD 12/04/2025 12/04/2024 Phosphate 12/04/2025 12/04/2024, 11/2023, 11/15/2022, Additional history exists Albumin/Creatinine Ratio 12/07/2025 025, 04/05/2023, 12/10/2022, Additional history exists Lipid Panel 12/04/2029 12/04/2024, 11/2023, 12/10/2022, Additional history exists RETIRED - [...] Nesbitt Spouse Health Care Agent Care Teams Senior Program Manager Relationship Specialty Start Date End Date Lo Chand DO [address] [place] [address] [place] [address] PCP - General Internal Medicine 07/29/20 documented as of this encounter
--- OUTSIDE RECORDS SUMMARY | 2025-02-12 17:58 | External Medical Summary | Summary of Care ---
Author Name Unknown Organization [facility] Address [address] [place] [address] Phone [phone] Care Team Providers Care Open Hearth Laborer Name Role Phone Lo Chand DO Primary Care Provider Reason for Visit * Reason Onset Date Comments Appointment 01/23/2025 Colonoscopy Encounter Details Date Type Department Care Team ([facility] st Contact Info) Description 01/23/2025 Telephone Family Medicine [address] [place] [phone] Lo Chand DO [address] [place], [place] [address] [address] Appointment (Colonoscopy ) Allergies Active Allergy Reactions [...] as of this encounter (statuses as of 01/23/2025) Medications oxygen GAS Use as directed 2 L/min(Oxygen) as needed for Shortness of Breath. Use as needed with activity 2 Active OneTouch Verio In Vitro Strip (Glucose Blood)Indications: Type 2 diabetes mellitus with stage 4 chronic kidney disease, without long-term current use of insulin ([facility]) Test once daily Dx E11.9 [...] DIRECTED FOR tube flushing 5 Active Nystatin 703835 UNIT/GM External Cream Apply topically to affected [...] as of this encounter (statuses as of 01/23/2025) Active Problems Problem Noted Date Diagnosed Date [...] as of this encounter (statuses as of 01/23/2025) Resolved Problems Problem Noted Date Diagnosed Date [...] as of this encounter (statuses as of 01/23/2025) Immunizations Name Administration Dates Next Due Pneumococcal Conjugate Vacc, 13 Valent (Prevnar) 06/05/2019 Pneumococcal Conjugate Vacci ne, 20-valent ([id number]) 11/11/2023 Pneumococcal Polysaccharide PPV23 (Pneumovax) 06/08/2016,03/01/2011 Season [...] Author Yes 12/06/2021 10:37 PM EST Yovani Alonso, RN documented in this encounter Miscellaneous Notes * Telephone Encounter - Kanchan Barros OSA - 01/23/2025 11:31 AM EDT Elise peters scheduled for colonoscopy for: Special screening for malignant neoplasms, colon [Z12.11] - Primary documented in this encounter Plan of Treatment Upcoming Encounters Date Type Department Care Team (Late st Contact Info) Description 01/24/2025 3:30 PM EDT Imaging Radiology [address] [place] [address] 02/25/2025 2:00 PM EDT Office Visit Nephrology [address] [place] [address] Maribel Orta PA-C [address] [place] [address] 05/14/2025 10:30 AM EDT Office Visit Cardiology [address] [place] [address] Francisco Javier Mancilla PATristanC [address] [place] [address] 08/21/2025 3:10 PM EST Office Visit Family Medicine [address] [place] [phone] [address] [place] [address] Health Maintenance Due Date Last Done Comments [...] 12/04/2024, 04/0 01/2024, 11/11/2023, Additional history exists Phosphate 12/04/2025 12/04/2024, 02/0 11/2023, 11/15/2022, Additional history exists Albumin/Creatinine Ratio 12/07/2025 025, 04/05/2023, 12/10/2022, Additional history exists O2 ASSESSMENT COMPLETED IN [...] Rubinmariel Spouse Health Care Agent Care Teams Open Hearth Laborer Relationship Specialty Start Date End Date Lo Chand DO [address] [place] [address] [place] [address] PCP - General Internal Medicine 07/29/20 documented as of this encounter
--- OUTSIDE RECORDS SUMMARY | 2025-02-12 17:58 | External Medical Summary | Summary of Care ---
Author Name Unknown Organization [facility] Address [address] [place] [facility] [place] [place] [address] Phone [phone] Care Team Providers Care Group Activities Aide Name Role Phone Lo Chand DO Primary Care Provider [phone] Reason for Referral * Ancillary Services (Within 30 days (routine)) - Authorized Specialty Diagnoses / Procedures Referred By Peggy parry Referred To Contact Gastroenterology Diagnoses Special screening for malignant neoplasms, colon Lo Chand DO [address] [place] [address] [place] [address] Phone: tel: fax: Referral ID Status Reason Start Date Expiration Date Visits Requested Visits Authorized [id number] Authorized Ancillary Services Required 01/23/[phone] Question Answer Referral Priority Within 30 days (routine) Where should this appointment be scheduled? External - [facility] Comments ALERT: Do not order for pediatric patients (18 years or younger). Cancel off screen and order PEDS GASTROENTEROLOGY CONSULT (Type: 1 visit only-Evaluate and Treat) The following Pt. Instructions are available: - Gastro Colonoscopy Prep Instructions [[id number]] - Gastro Colonoscopy Prep Instructions ([place] Zealander Version) [[id number]] Go to the Pt. Instructions section within the Visit Navigator to access. Colonoscopy ASGE Guidelines: Postadenoma resection: 3-10 adenomas or adenoma with villous features, greater than or equal 1 cm, or with high-grade dysplasia (3 yr intervals) ADDITIONAL INFORMATION 1. Is the patient on Coumadin? No 2. Is the patient on Pradaxa? No Reason for Visit * Reason Comments Re-Check Encounter Details Date Type Department Care Team (Latest Contact Info) Description 01/23/2025 10:30 AM EDT Office Visit Family Medicine [address] [place] [phone] Lo Chand, [address] [place] [address] Special screening for malignant neoplasms, colon*; Bipolar affective disorder, remission status unspecified ([facility]); COPD, group D, by GOLD 2017 classification ([facility]); Senile osteoporosis; Chronic kidney disease, stage 4 (severe) ([facility]); Elevated LFTs Allergies Active Allergy Reactions Criticality [...] Breath. Use as needed with activity 01/20/20 22 Active OneTouch Verio In Vitro Strip (Glucose Blood)Indications :Type 2 diabetes mellitus with stage 4 chronic kidney disease, without long-term current use of insulin ([facility]) Test once daily Dx E11.9 100 Strip 5 01/05/20 22 Active Riboflavin 400 MG Oral Tablet TAKE ONE TABLET IN THE MORNING 90 Tablet 1 10/18/19 23 Active Incontinence Supplies Disposable briefs size XL. Use as directed for urinary incontinence. 100 Each 5 10/07/20 23 Active Incontinence Supplies Poise pads. Use as directed for urinary incontinence. 100 Each 5 10/07/20 23 Active hydrOXYzine HCl 25 MG Oral TabletIndications :Insomnia, unspecified type Take 1 Tablet by mouth every night at bedtime. 90 Tablet 3 03/16/20 24 Active Vitamin D3 50 MCG (1999 UT) Oral CapsuleIndication s:Vitamin D deficiency TAKE ONE CAPSULE BY MOUTH IN THE MORNING Strength: 50 MCG (2000 UT) 90 Capsule 3 04/10/20 24 Active MAGnesium-Oxide 400 (240 Mg) MG Oral Tablet (Magnesium Oxide -Mg Supplement) TAKE ONE TABLET BY MOUTH EVERY DAY 28 Tablet 07/05/20 24 Active Metoprolol Succinate ER 25 MG Oral Tablet Extended Release 24 Hour (toPROL XL) TAKE ONE TABLET TWICE DAILY 64 Tablet 07/05/20 24 Active Pantoprazole Sodium 40 MG Oral Tablet Delayed Release (Protonix)Indicat ions:Gastroesopha geal reflux disease with esophagitis without hemorrhage Take 1 Tablet by mouth in the morning and 1 Tablet before bedtime. 56 Tablet 07/05/20 24 Active OXcarbazepine 300 MG Oral Tablet (Trileptal)Indica tions:Dyslipidemi a, goal LDL below 100 TAKE ONE TABLET BY MOUTH TWICE DAILY 180 Tablet 1 09/03/20 24 Active Atorvastatin Calcium 40 MG Oral Tablet (Lipitor)Indicati ons:Dyslipidemia, goal LDL below 100 TAKE ONE TABLET BY MOUTH IN THE MORNING 90 Tablet 1 09/02/20 24 Active BD PosiFlush 0.9 % Intravenous Solution USE DIRECTED FOR tube flushing 10/11/19 25 Active Nystatin 122104 UNIT/GM External Cream Apply topically to affected area 2 times a day. To affacted area for two weeks. 60 g 2 12/04/19 25 Active Ondansetron 4 MG Oral Tablet Disintegrating (Zofran)Indicatio ns:Nausea without vomiting Place 1 Tablet on tongue [...] bedtime. 270 Tablet 2 12/22/19 25 Active Acetaminophen ER 650 MG Oral Tablet Extended Release Take 1 Tablet by mouth every 8 hours as needed (take one tablet for knee pain up to 4 times daily). 09/26/20 19 2024 Discontinued Ventolin HFA 108 (90 Base) MCG/ACT Inhalation Aerosol SolutionIndicatio ns:COPD, group D, by GOLD 2017 classification ([facility]) Inhale by mouth 2 Puffs every 4 hours as needed for Cough or Shortness of Breath. 18 g 5 03/03/20 22 2024 Discontinued Ferrous Gluconate 324 (37.5 Fe) MG Oral Tablet Take 1 Tablet by mouth daily with breakfast. 11/10/19 23 2024 Discontinued Folic Acid 1 MG Oral Tablet Take 1 Tablet by mouth in the morning. 11/10/19 23 2024 Discontinued Cyanocobalamin 100 MCG Oral Tablet Take 1 Tablet by mouth in the morning. 90 Tablet 1 12/23/19 23 2024 Discontinued Loperamide HCl 2 MG Oral Capsule (Imodium) Take 1 Capsule by mouth 4 times a day as needed for Diarrhea. 2024 Discontinued Tamsulosin HCl 0.4 MG Oral Capsule (Flomax) Take 1 Capsule by mouth in the morning. 12/23/19 24 2024 Discontinued Amoxicillin-Pot Clavulanate 875-125 MG Oral Tablet (Augmentin) Take 1 Tablet by mouth in the morning and 1 Tablet before bedtime. 10 days . 11/25/19 25 2024 Discontinued documented as of this encounter (statuses as [...] (Prevnar) 06/05/2019 Pneumococcal Conjugate Vacci ne, 20-valent ([id number]) 11/11/2023 Pneumococcal Polysaccharide PPV23 (Pneumovax) 06/08/2016,03/01/2011 Season [...] 10/30/2024 Does the household have a re lar source of income? (Household - for ages [...] on file documented as of this encounter Last Filed Vital Signs Vital Sign Reading Time Taken Comments Blood Pressure 127/92 01/23/2025 10:31 AM EDT Pulse 85 01/23/2025 10:31 AM EDT Temperature - - Respiratory Rate - - Oxygen Saturation 97% 01/23/2025 10:31 AM EDT Inhaled Oxygen Concentration - - Weight 75.5 kg (166 lb 6.4 oz) 01/23/2025 10:31 AM EDT Height - - Body Mass Index 33.61 12/06/2021 10:37 PM EST documented in this encounter Functional Status * Are you [...] of Assessment Author Yes 12/06/2021 10:37 PM Yoavni Tinajero RN * Do you have difficulty [...] Yovani Tinajero RN documented in this encounter Patient Instructions * Patient Instructions* Lo Chand DO - 01/23/2025 11:14 AM EDT Buy an over the counter iron supplement (ferrous sulfate 325 mg) and take it daily along with vitamin C. documented in this encounter Progress Notes * Lo Chand DO - 01/23/2025 10:43 AM EDT Subjective: Elise Nesbitt is a 69 year old female. Chief Complaint Patient presents with Re-Check HPI: Elise Nesbitt presents today for routine follow up. Today she reports doing well. She continues to have her nephrostomy tube on the left. It is draining well. She will be going back to [place] on February 20 to have her nephrostomy tube changed. She continues to follow with Dr. Adam of [facility] urology - will be seen back in March. No fevers or chills. Appetite is okay. Weight is up some from her prior appointment. Mental health is stable. She continues to have some LLE pain - not as bad as it was but still present. Long overdue for colonoscopy. [facility] so she doesn't have to go to [place]. PMH: Patient Active Problem List Diagnosis Reflux esophagitis Rosacea History of colon cancer Pruritus Renal cyst, left DDD (degenerative disc disease), lumbar Oropharyngeal dysphagia Hyperlipidemia with target LDL less than 70 Obesity hypoventilation syndrome ([facility]) Anxiety state History of kidney stones Type 2 diabetes mellitus with hemoglobin A1c goal of less than 8.0% ([facility]) Diastolic dysfunction CALI (obstructive sleep apnea) COPD, group D, by GOLD 2017 classification ([facility]) Moderate persistent asthma without complication Senile osteoporosis Myoclonic jerking Hypertensive kidney disease with chronic kidney disease stage IV ([facility]) Chronic kidney disease, stage 4 (severe) ([facility]) Bipolar disorder, currently in remission, most recent episode unspecified ([facility]) Stress incontinence Obstruction of nephrostomy tube ([facility]) Current Outpatient Medications Medication Sig Dispense Refill oxygen GAS Use as directed 2 L/min(Oxygen) as needed for Shortness of Breath. Use as needed with activity OneTouch Verio In Vitro Strip (Glucose Blood) Test once daily Dx E11.9 100 Strip 5 Riboflavin 400 MG Oral Tablet TAKE ONE TABLET IN THE MORNING 90 Tablet 1 Incontinence Supplies Disposable briefs size XL. Use as directed for urinary incontinence. 100 Each5 Incontinence Supplies Poise pads. Use as directed for urinary incontinence. 100 Each 5 hydrOXYzine HCl 25 MG Oral Tablet Take 1 Tablet by mouth every night at bedtime. 90 Tablet 3 Vitamin D3 50 MCG (1999 UT) Oral Capsule TAKE ONE CAPSULE BY MOUTH IN THE MORNING Strength: 50 MCG (2000 UT) 90 Capsule 3 MAGnesium-Oxide 400 (240 Mg) MG Oral Tablet (Magnesium Oxide -Mg Supplement) TAKE ONE TABLET BY MOUTH EVERY DAY 28 Tablet 11 Metoprolol Succinate ER 25 MG Oral Tablet Extended Release 24 Hour (toPROL XL) TAKE ONE TABLET TWICE DAILY 64 Tablet 11 Pantoprazole Sodium 40 MG Oral Tablet Delayed Release (Protonix) Take 1 Tablet by mouth in the morning and 1 Tablet before bedtime. 56 Tablet 11 OXcarbazepine 300 MG Oral Tablet (Trileptal) TAKE ONE TABLET BY MOUTH TWICE DAILY 180 Tablet 1 Atorvastatin Calcium 40 MG Oral Tablet (Lipitor) TAKE ONE TABLET BY MOUTH IN THE MORNING 90 Tablet 1 BD PosiFlush 0.9 % Intravenous Solution USE DIRECTED FOR tube flushing Nystatin 668824 UNIT/GM External Cream Apply topically to affected area 2 times a day. To affacted area for two weeks. 60 g 2 Ondansetron 4 MG Oral Tablet Disintegrating (Zofran) Place 1 Tablet on tongue every 8 hours as needed for Nausea or Vomiting. dissolve on tongue. 90 Tablet 1 oxyBUTYnin Chloride 5 MG Oral Tablet (Ditropan) Take 1 Tablet by mouth in the morning. In the morning.. 90 Tablet 2 Midodrine HCl 5 MG Oral Tablet (Proamatine) Take 1 Tablet by mouth in the morning and 1 Tablet at noon and 1 Tablet before bedtime. 270 Tablet 2 Acetaminophen ER 650 MG Oral Tablet Extended Release Take 1 Tablet by mouth every 8 hours as needed(take one tablet for knee pain up to 4 times daily). (Patient not taking: Reported on 11/26/2024) Ventolin HFA 108 (90 Base) MCG/ACT Inhalation Aerosol Solution Inhale by mouth 2 Puffs every 4 hours as needed for Cough or Shortness of Breath. (Patient not taking: Reported on 01/23/2025) 18 g 5 Ferrous Gluconate 324 (37.5 Fe) MG Oral Tablet Take 1 Tablet by mouth daily with breakfast. (Patient not taking: Reported on 01/12/2024) Folic Acid 1 MG Oral Tablet Take 1 Tablet by mouth in the morning. (Patient not taking: Reported on10/30/2024) Cyanocobalamin 100 MCG Oral Tablet Take 1 Tablet by mouth in the morning. (Patient not taking: Reported on 10/30/2024) 90 Tablet 1 Loperamide HCl 2 MG Oral Capsule (Imodium) Take 1 Capsule by mouth 4 times a day as needed for Diarrhea. (Patient not taking: Reported on 01/23/2025) Tamsulosin HCl 0.4 MG Oral Capsule (Flomax) Take 1 Capsule by mouth in the morning. (Patient not taking: Reported on 11/26/2024) Amoxicillin-Pot Clavulanate 875-125 MG Oral Tablet (Augmentin) Take 1 Tablet by mouth in the morning and 1 Tablet before bedtime. 10 days . (Patient not taking: Reported on 01/23/2025) No current facility-administered medications for this visit. 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 Hydromorphone Iodinated Contrast Media Ivp Dye Hives Meperidine Morphine Morphine And Codeine Itching Salicylates Edema Other Eyes, lips Salicylates Tramadol Objective: BP 127/92 | Pulse 85 | SpO2 97% General: alert, healthy, no distress, well nourished, and well developed Neck: supple, no adenopathy, thyroid normal size, non-tender, without nodularity Heart: regular rate & rhythm and no murmur Lungs: chest symmetric with normal AP diameter, no chest deformities noted, normal respiratory rateand rhythm, lungs clear to auscultation Abdomen: abdomen soft and mildly tender to palpation in the LLQ, nephrostomy tube is in place with some sediment in tube Extremities: no joint deformities, effusion, or inflammation, no edema Neuro Exam: alert & oriented x 3 with fluent speech, no focal motor/sensory deficits ASSESSMENT/PLAN: Special screening for malignant neoplasms, colon (Primary) - need to get her colonoscopy scheduled with her ongoing LLQ abdominal pain - COLONOSCOPY, GI REFERRAL OP Bipolar affective disorder, remission status unspecified (HCC) - stable on current regimen. Continue. COPD, group D, by GOLD 2017 classification ([facility]) - breathing is stable today. Senile osteoporosis Chronic kidney disease, stage 4 (severe) ([facility]) - CBC WITH WBC DIFFERENTIAL AND ANEMIA REFLEX WORKUP; Future; Expected date: 01/23/2025 - BASIC METABOLIC PANEL; Future; Expected date: 01/23/2025 - PTH; Future; Expected date: 01/23/2025 Elevated LFTs - HEPATIC FUNCTION PANEL; Future; Expected date: 01/23/2025 Nephrostomy tube: on the left. Keep scheduled follow up with [place] Follow-up: Return in about 6 months (around 07/25/2025). | Check-out note: Reschedule mammogram. Labs today Lo Chand DO documented in this encounter Plan of Treatment Upcoming Encounters Date Type Department Care Team (Late st Contact Info) Description 01/24/2025 3:30 PM EDT Imaging Radiology [address] [place] [address] 02/25/2025 2:00 PM EDT Office Visit Nephrology [address] [place] [address] Maribel Orta [facility]-C [address] [facility] [address] 05/14/2025 10:30 AM EDT Office Visit Cardiology [address] [place] [address] Francisco Javier Mancilla PA-C [address] [place] [address] 08/21/2025 3:10 PM EST Office Visit Family Medicine [address] [place] [phone] Lo Chand DO [address] [place] [address] [place] [address] Pending Results Name Type Priority Associated Diagnoses Date /Time CBC WITH WBC DIFFERENTIAL AND ANEMIA REFLEX WORKUP Lab Routine Chronic kidney disease, stage 4 (severe) (HCC) 01/23/2025 11:19 AM EDT BASIC METABOLIC PANEL Lab Routine Chronic kidney disease, stage 4 (severe) (HCC) 01/23/2025 11:19 AM EDT PTH Lab Routine Chronic kidney disease, stage 4 (severe) (HCC) 01/23/2025 11:19 AM EDT Scheduled Orders Name Type Priority Associated Diagnoses Orde r Schedule CBC WITH WBC DIFFERENTIAL AND ANEMIA REFLEX WORKUP Lab Routine Chronic kidney disease, stage 4 (severe) (HCC) Expected: 01/23/2025 (Approximate), Expires: 01/23/2026 BASIC METABOLIC PANEL Lab Routine Chronic kidney disease, stage 4 (severe) (HCC) Expected: 01/23/2025 (Approximate), Expires: 01/23/2026 PTH Lab Routine Chronic kidney disease, stage 4 (severe) (HCC) Expected: 01/23/2025 (Approximate), Expires: 01/23/2026 Scheduled Referrals Name Type Priority Associated Diagnoses Orde r Schedule COLONOSCOPY, GI REFERRAL OP Referral Within 30 days (routine) Special screening for malignant neoplasms, colon Ordered: 01/23/2025 Health Maintenance Due Date Last Done Comments [...] as of this encounter Visit Diagnoses Diagnosis Special screening for malignant neoplasms, colon- Primary Bipolar affective disorder, remission status unspecified (HCC) COPD, group D, by GOLD 2017 classification (HCC) Senile osteoporosis Chronic kidney disease, stage 4 (severe) (HCC) Elevated LFTs Other abnormal blood chemistry Screening mammogram for breast cancer documented in [...] Name Relationship Healthcare Agent Relationship Communication Martin Delicia Spouse Health Care Agent Care Teams Group Activities Aide Relationship Specialty Start Date End Date Lo Chand DO [address] [place] [address] [place] [phone] PCP - General Internal Medicine 07/29/20 documented as of this encounter"
--- OUTSIDE RECORDS SUMMARY | 2025-02-12 17:58 | External Medical Summary ---
Author Name Unknown Address Unknown Organization K01:[facility] [place] [address] [place] [address] Laboratory Report Ordering Provider Test Date Status SHANNON CHAMPAGNE 01/23/2025 11:19:53 Final Observation Date Value Abnormality Reference (Units ) Status Albumin 01/23/2025 11:19:53 4.2 3.8-5.0 (g/dL) Final AST (Aspartate aminotransferase) 01/23/2025 11:19:53 14 10-35 (U/L) Final Alk Phos 01/23/2025 11:19:53 161 Above high normal 35-130 (U/L) Final ALT (Alanine aminotransferase) 01/23/2025 11:19:53 13 10-35 (U/L) Final Bilirubin, Total 01/23/2025 11:19:53 0.4 <=1.2 (mg/dL) Final Bilirubin, Direct 01/23/2025 11:19:53 0.1 0.0-0.3 (mg/dL) Final Protein 01/23/2025 11:19:53 7.3 6.0-8.3 (g/dL) Final Performing Location [facility] [place] - [address] [place] [address]
--- OUTSIDE RECORDS SUMMARY | 2025-02-12 17:58 | External Medical Summary ---
Author Name Unknown Address Unknown Organization K01:[facility] [place] - [address] [place] [address] Laboratory Report Ordering Provider Test Date Status SHANNON CHAMPAGNE 01/23/2025 11:19:53 Final Observation Date Value Abnormality Reference (Units ) Status TSH 01/23/2025 11:19:53 1.39 0.27-4.20 (uIU/mL) Final Performing Location [facility] - [address] [place] [address]
--- OUTSIDE RECORDS SUMMARY | 2025-02-12 17:58 | External Medical Summary | Summary of Care ---
Author Name Unknown Organization [facility] Address [address] [place] [facility] [address] Phone [phone] Care Team Providers Care Size Marker Name Role Phone Lo Chand DO Primary Care Provider Reason for Referral * Ancillary Services (Within 30 days (routine)) - Authorized Specialty Diagnoses / Procedures Referred By Peggy parry Referred To Contact Gastroenterology Diagnoses Special screening for malignant neoplasms, colon Lo Chand DO [address] [place] [address] [place] [address] Phone: tel: fax: Referral ID Status Reason Start Date Expiration Date Visits Requested Visits Authorized [id number] Authorized Ancillary Services Required 01/23/[phone] [...] are available: - Gastro Colonoscopy Prep Instructions [[id number]] - Gastro Colonoscopy Prep Instructions ([place] Version) [[id number]] Go to the Pt. Instructions section within [...] 10:30 AM EDT Office Visit Family Medicine [address] [place] [phone] Lo Chand, [address] [place] [address] Special screening for malignant neoplasms, colon*; Bipolar affective disorder, remission status unspecified ([facility]); COPD, group D, by GOLD 2017 classification ([facility]); Senile osteoporosis; Chronic kidney disease, stage 4 (severe) ([facility]); Elevated LFTs Allergies Active Allergy Reactions Criticality [...] disease, without long-term current use of insulin ([facility]) Test once daily Dx E11.9 100 Strip [...] FOR tube flushing 10/11/19 25 Active Nystatin 567967 UNIT/GM External Cream Apply topically to affected [...] ns:COPD, group D, by GOLD 2017 classification ([facility]) Inhale by mouth 2 Puffs every 4 [...] (Prevnar) 06/05/2019 Pneumococcal Conjugate Vacci ne, 20-valent ([id number]) 11/11/2023 Pneumococcal Polysaccharide PPV23 (Pneumovax) 06/08/2016,03/01/2011 Season [...] well. She will be going back to [place] on February 20 to have her nephrostomy tube changed. She continues to follow with Dr. Adam of [facility] urology - will be seen back in March. No fevers or chills. Appetite is okay. Weight is up some from her prior appointment. Mental health is stable. She continues to have some LLE pain - not as bad as it was but still present. Long overdue for colonoscopy. [facility] so she doesn't have to go to [place]. PMH: Patient Active Problem List Diagnosis Reflux esophagitis Rosacea History of colon cancer Pruritus Renal cyst, left DDD (degenerative disc disease), lumbar Oropharyngeal dysphagia Hyperlipidemia with target LDL less than 70 Obesity hypoventilation syndrome ([facility]) Anxiety state History of kidney stones Type 2 diabetes mellitus with hemoglobin A1c goal of less than 8.0% ([facility]) Diastolic dysfunction CALI (obstructive sleep apnea) COPD, group D, by GOLD 2017 classification ([facility]) Moderate persistent asthma without complication Senile osteoporosis Myoclonic jerking Hypertensive kidney disease with chronic kidney disease stage IV ([facility]) Chronic kidney disease, stage 4 (severe) ([facility]) Bipolar disorder, currently in remission, most recent episode unspecified ([facility]) Stress incontinence Obstruction of nephrostomy tube ([facility]) Current Outpatient Medications Medication Sig Dispense Refill [...] Solution USE DIRECTED FOR tube flushing Nystatin 473443 UNIT/GM External Cream Apply topically to affected [...] COPD, group D, by GOLD 2017 classification ([facility]) - breathing is stable today. Senile osteoporosis Chronic kidney disease, stage 4 (severe) ([facility]) - CBC WITH WBC DIFFERENTIAL AND ANEMIA REFLEX WORKUP; Future; Expected date: 01/23/2025 - BASIC METABOLIC PANEL; Future; Expected date: 01/23/2025 - PTH; Future; Expected date: 01/23/2025 Elevated LFTs - HEPATIC FUNCTION PANEL; Future; Expected date: 01/23/2025 Nephrostomy tube: on the left. Keep scheduled follow up with [place] Follow-up: Return in about 6 months (around 07/25/2025). | Check-out note: Reschedule mammogram. Labs today Lo Chand DO documented in this encounter Plan of Treatment Upcoming Encounters Date Type Department Care Team (Late st Contact Info) Description 01/24/2025 3:30 PM EDT Imaging Radiology [address] [place] [address] 02/25/2025 2:00 PM EDT Office Visit Nephrology [address] [place] [address] Maribel Orta [facility]-C [address] [facility] [address] 05/14/2025 10:30 AM EDT Office Visit Cardiology [address] [place] [address] Francisco Javier Mancilla PA-C [address] [place] [address] 08/21/2025 3:10 PM EST Office Visit Family Medicine [address] [place] [phone] Lo Chand DO [address] [place] [address] [place] [address] Pending Results Name Type Priority Associated Diagnoses [...] Delicia Spouse Health Care Agent Care Teams Size Marker Relationship Specialty Start Date End Date Lo Chand DO [address] [place] [address] [place] [phone] PCP - General Internal Medicine 07/29/20 documented as of this encounter"
--- OUTSIDE RECORDS SUMMARY | 2025-02-12 17:58 | External Medical Summary ---
Author Name Unknown Address Unknown Organization K01:[facility] [place] [address] [facility] [address] Laboratory Report Ordering Provider Test Date Status SHANNON CHAMPAGNE 01/23/2025 11:19:53 Final Observation Date Value Abnormality Reference (Units ) Status Ferritin 01/23/2025 11:19:53 54 13-150 (ng /mL) Final Postmenopausal women have hi gher ferritin levels than pre-menopausal women. The above reference interval is based on pre-menopausal women. Performing Location [facility] - [address] [place] [address]
--- OUTSIDE RECORDS SUMMARY | 2025-02-12 17:58 | External Medical Summary ---
Author Name Unknown Address Unknown Organization [id number]:[facility] - [address] [place] [facility] [address] Laboratory Report Ordering Provider Test Date Status SHANNON CHAMPAGNE 01/23/2025 11:19:53 Final Observation Date Value Abnormality Reference (Units ) Status SYNC LEUKOCYTES IN BLOOD BY AUTOMATED COUNT 01/23/2025 11:19:53 11.34 Above high normal 4.00-10.80 (K/uL) Final Segs 01/23/2025 11:19:53 69.3 40.0-75.0 (%) Final Lymphs % 01/23/2025 11:19:53 18.3 18.0-42.0 (%) Final Monos 01/23/2025 11:19:53 7.6 1.0-11.0 (%) Final Eosinophils 01/23/2025 11:19:53 3.8 0.0-6.0 (%) Final Basos 01/23/2025 11:19:53 0.5 0.0-2.0 (%) Final Immature Granulocyte, Percent 01/23/2025 11:19:53 0.5 0.0-2.0 (%) Final Absolute Segs 01/23/2025 11:19:53 7.85 Above high normal 1.80-7.70 (K/uL) Final Lymphs, absolute 01/23/2025 11:19:53 2.08 1.00-4.80 (K/ul) Final Monos, Abs 01/23/2025 11:19:53 0.86 0.00-1.10 (K/uL) Final Eos, Abs 01/23/2025 11:19:53 0.43 0.00-0.70 (K/uL) Final Basos, Abs 01/23/2025 11:19:53 0.06 0.00-0.20 (K/uL) Final Immature Granulocytes, Number 01/23/2025 11:19:53 0.06 0.00-0.20 (K/uL) Final Performing Location [place] [facility] [place] [facility] [address]
--- OUTSIDE RECORDS SUMMARY | 2025-02-12 17:58 | External Medical Summary ---
Author Name Unknown Address Unknown Organization [id number]:LABORATORY [facility] [place] - [address] [place] [address] Laboratory Report Ordering Provider Test Date Status MAHIORTEGA 01/23/2025 11:19:53 Final Observation Date Value Abnormality Reference (Units ) Status Vitamin B12 01/23/2025 11:19:53 389 125-0555 (pg/mL) Final Performing Location LABORATORY [facility] [place] - [address] [place] [address]
--- OUTSIDE RECORDS SUMMARY | 2025-02-12 17:58 | External Medical Summary ---
Author Name Unknown Address Unknown Organization [id number]:LABORATORY [facility] [place] - [address] [place] [address] Laboratory Report Ordering Provider Test Date Status SHANNON CHAMPAGNE 01/23/2025 11:19:53 Final Observation Date Value Abnormality Reference (Units ) Status Retic, % (auto) 01/23/2025 11:19:53 1.74 0.80-1.90 (%) Final Reticulocytes, Absolute 01/23/2025 11:19:53 66.6 31.3-100.1 (K/uL) Final Reticulocyte fraction, immature 01/23/2025 11:19:53 15.2 2.5-20.6 (%) Final Reticulocyte HGB 01/23/2025 11:19:53 30.1 29.7-37.4 (pg) Final Performing Location LABORATORY [facility] [place] - [address] [place] [address]
--- OUTSIDE RECORDS SUMMARY | 2025-02-12 17:58 | External Medical Summary ---
Author Name Unknown Address Unknown Organization [id number]:LABORATORY [facility] [place] - [address] [place] [address] Laboratory Report Ordering Provider Test Date Status SHANNON CHAMPAGNE 01/23/2025 11:19:53 Final Observation Date Value Abnormality Reference (Units ) Status Folic Acid 01/23/2025 11:19:53 2.7 Below low normal >4 .5 (ng/mL) Final Performing Location LABORATORY [facility] [place] - [address] [place] [address]
--- OUTSIDE RECORDS SUMMARY | 2025-02-12 17:58 | External Medical Summary | Summary of Care ---
Author Name Unknown Organization [facility] Address [address] [facility] [address] Phone [phone] Care Team Providers Care Appraiser Oil And Water Name Role Phone Lo Chand DO Primary Care Provider Reason for Visit * Reason Comments Outpatient Testing Encounter Details Date Type Department Care Team ([facility] st Contact Info) Description 01/23/2025 11:20 AM EDT Laboratory Laboratory [address] [place] [phone] [place] [address] Abnormal CBC; Elevated liver enzymes; Chronic kidney [...] disease, without long-term current use of insulin ([facility]) Test once daily Dx E11.9 100 [...] DIRECTED FOR tube flushing 5 Active Nystatin 442158 UNIT/GM External Cream Apply topically to affected [...] (Prevnar) 06/05/2019 Pneumococcal Conjugate Vacci ne, 20-valent ([id number]) 11/11/2023 Pneumococcal Polysaccharide PPV23 (Pneumovax) 06/08/2016,03/01/2011 Season [...] Description 01/24/2025 3:30 PM EDT Imaging Radiology [address] [place] [address] 02/25/2025 2:00 PM EDT Office Visit Nephrology [address] [place] [address] Maribel Orta PA-C [address] [place] [address] 05/14/2025 10:30 AM EDT Office Visit Cardiology [address] [place] [address] Francisco Javier Mancilla PA-C [address] [place] [address] 08/21/2025 3:10 PM EST Office Visit Family Medicine [address] [place] [phone] [place] [address] Pending Results Name Type Priority Associated Diagnoses Date /Time HEPATIC FUNCTION PANEL Lab Routine Elevated liver enzymes 01/23/2025 11:19 AM EDT CBC WITH WBC DIFFERENTIAL AND ANEMIA REFLEX WORKUP Lab Routine Chronic kidney disease, stage 4 (severe) (HCC) 01/23/2025 11:19 AM EDT BASIC METABOLIC PANEL Lab Routine Chronic kidney disease, stage 4 (severe) (HCC) 01/23/2025 11:19 AM EDT PTH Lab Routine Chronic kidney disease, stage 4 (severe) (HCC) 01/23/2025 11:19 AM EDT ANEMIA CBC Lab Routine Chronic kidney disease, stage 4 (severe) ([facility]) 01/23/2025 11:19 AM EDT DIFFERENTIAL, AUTOMATED Lab Routine Chronic kidney disease, stage 4 (severe) ([facility]) 01/23/2025 11:19 AM EDT ANEMIA REFLEX CHEMISTRY HOLD Lab Routine Chronic kidney disease, stage 4 (severe) ([facility]) 01/23/2025 11:19 AM EDT Health Maintenance Due Date Last [...] as of this encounter Visit Diagnoses Diagnosis Abnormal CBC [...] Nesbitt Spouse Health Care Agent Care Teams Appraiser Oil And Water Relationship Specialty Start Date End Date Lo Chand DO [address] [place] [address] [place] [phone] PCP - General Internal Medicine 07/29/20 documented as of this encounter
--- OUTSIDE RECORDS SUMMARY | 2025-02-12 17:59 | External Medical Summary | Summary of Care ---
Author Name Unknown Organization [facility] Address [address] [place] [address] Phone [phone] Care Team Providers Care Deputy Director Of Nursing Name Role Phone Lo Chand DO Primary Care Provider Reason for Visit * Reason Comments Outpatient Testing Encounter Details Date Type Department Care Team (Late st Contact Info) Description 12/04/2024 2:00 PM EST Laboratory Laboratory [address] [place] [phone] [place] [address] Hyperlipidemia with target LDL less than 70; Chronic kidney disease, stage 4 (severe) ([facility]); Type 2 diabetes mellitus with hemoglobin A1c goal of less than 8.0% ([facility]) Allergies Active Allergy Reactions Criticality Noted Date [...] as of this encounter (statuses as of 12/04/2024) Medications Acetaminophen ER 650 MG Oral Tablet [...] disease, without long-term current use of insulin ([facility]) Test once daily Dx E11.9 100 Strip 5 01/05/20 Active Ventolin HFA 108 (90 Base) MCG/ACT Inhalation Aerosol SolutionIndication s:COPD, group D, by GOLD 2017 classification ([facility]) Inhale by mouth 2 Puffs [...] taking.Reported on 12/04/2024 Vitamin D3 50 MCG (2000 UT) Oral [...] bedtime. 10 days . 11/25/19 Active Nystatin 012508 UNIT/GM External Cream Apply topically to affected area 2 times a day. To affacted area for two weeks. 60 g 2 12/04/19 Active Ondansetron 4 MG Oral Tablet Disintegrating (Zofran)Indication s:Nausea without vomiting Place 1 Tablet on tongue every 8 hours as needed for Nausea or Vomiting. dissolve on tongue. 90 Tablet 1 12/04/19 Active documented as of this encounter (statuses as of 12/04/2024) Active Problems Problem Noted Date Diagnosed Date [...] as of this encounter (statuses as of 12/04/2024) Resolved Problems Problem Noted Date Diagnosed Date [...] as of this encounter (statuses as of 12/04/2024) Immunizations Name Administration Dates Next Due Pneumococcal Conjugate Vacc, 13 Valent (Prevnar) 06/05/2019 Pneumococcal Conjugate Vacci ne, 20-valent ([id number]) 11/11/2023 Pneumococcal Polysaccharide PPV23 (Pneumovax) 06/08/2016,03/01/2011 Season [...] 10:30 AM EDT Office Visit Family Medicine [address] [phone] Chand, Lo Gómez[address] [place] [address] 02/25/2025 2:00 PM EDT Office Visit Nephrology [address] [place] [address] Maribel Orta PA-C [address] [place] [address] 05/14/2025 10:30 AM EDT Office Visit Cardiology [address] [place] [address] Francisco Javier Mancilla PA-C [address] [place] [address] Pending Results Name Type Priority Associated Diagnoses Date /Time LIPID PANEL WITH DIRECT LDL IF TG IS HIGH Lab Routine Hyperlipidemia with target LDL less than 70 12/04/2024 1:58 PM EST COMPREHENSIVE METABOLIC PANEL Lab Routine Chronic kidney disease, stage 4 (severe) ([facility]) Hyperlipidemia with target LDL less than 70 12/04/2024 1:58 PM EST PHOSPHORUS Lab Routine Chronic kidney disease, stage 4 (severe) ([facility]) 12/04/2024 1:58 PM EST HEMOGLOBIN A1C Lab Routine Type 2 diabetes mellitus with hemoglobin A1c goal of less than 8.0% ([facility]) 12/04/2024 1:58 PM EST CBC WITH WBC DIFFERENTIAL AND ANEMIA REFLEX WORKUP Lab Routine Chronic kidney disease, stage 4 (severe) ([facility]) 12/04/2024 1:58 PM EST ANEMIA CBC Lab Routine Chronic kidney disease, stage 4 (severe) ([facility]) 12/04/2024 1:58 PM EST DIFFERENTIAL, AUTOMATED Lab Routine Chronic kidney disease, stage 4 (severe) ([facility]) 12/04/2024 1:58 PM EST ANEMIA REFLEX CHEMISTRY HOLD Lab Routine Chronic kidney disease, stage 4 (severe) ([facility]) 12/04/2024 1:58 PM EST Health Maintenance Due Date Last Done Comments Alpha-1 Antitrypsin 1971 Cologuard 1998 Fecal Occult Blood Test 1998 Zoster Vaccines (1 of 2) 2003 Sigmoidoscopy 01/03/2018 01/03/2013 Adult Wellness Visit 2019 DTap/Tdap Vaccines (2 - Td or Tdap) 03/01/2021 03/01/2011 Colonoscopy 10/16/2021 10/16/2019, 12/08, 12/23/2017, Additional history exists Colorectal Cancer Screening 10/16/2021 Diabetic Eye Exam 03/26/2022 03/26/2021, , 10/11/2019, Additional history exists Albumin/Creatinine Ratio 04/05/2024 023, 12/10/2022, 08/21/2021, Additional history exists Diabetic Foot Exam 04/05/2024 04/05/2023, 0 05/07/2022, 07/07/2020, Additional history exists HbA1c 05/11/2024 11/11/2023, 03/11, 12/10/2022, Additional history exists COVID-19 Vaccine ( season) 2024 03/05/2021, 02/06/2021 Influenza Vaccine (FLU shot) (#1) 2024 08/21/2021, 08/21/2021, 06/17/2020, Additional history exists GFR 07/13/2024 01/12/2024, 12/09, 11/11/2023, Additional history exists PTH 11/11/2024 11/11/2023, 04/10, 10/17/2020, Additional history exists Phosphate 11/11/2024 11/11/2023, 02/0 03/2023, 05/07/2022, Additional history exists Mammogram 11/24/2024 11/24/2023, 2 06/2021, 06/14/2019, Additional history exists Hgb 01/11/2025 01/12/2024, 02/0 11/2023, 04/27/2023, Additional history exists Nephrology Referral 11/26/2025 11/26/2024 O2 ASSESSMENT COMPLETED IN PAST YEAR FOR COPD 12/04/2025 12/04/2024 Lipid Panel 11/11/2028 11/11/2023, 03/0 12/2022, 08/21/2021, Additional history exists RETIRED - COLONOSCOPY-EVERY 2 [...] as of this encounter Visit Diagnoses Diagnosis Hyperlipidemia with target LDL less than 70 Other and unspecified hyperlipidemia Chronic kidney disease, stage 4 (severe) (HCC) Type 2 diabetes mellitus with hemoglobin A1c goal of less than 8.0% (HCC) documented in this encounter Advance Directives * [...] Nesbitt Spouse Health Care Agent Care Teams Deputy Director Of Nursing Relationship Specialty Start Date End Date Lo Chand DO [address] [place] [address] [place] [address] PCP - General Internal Medicine 07/29/20 documented as of this encounter
--- OUTSIDE RECORDS SUMMARY | 2025-02-12 17:59 | External Medical Summary ---
Author Name Unknown Address Unknown Organization K01:[facility] [place] [address] [place] [address] Laboratory Report Ordering Provider Test Date Status SHANNON CHAMPAGNE 12/04/2024 13:58:15 Final Observation Date Value Abnormality Reference (Units ) Status Ferritin 12/04/2024 13:58:15 151 Above high normal 13 -150 (ng/mL) Final Postmenopausal women have hi gher ferritin levels than pre-menopausal women. The above reference interval is based on pre-menopausal women. Performing Location [facility]ORY [facility] - [address] [place] [address]
--- OUTSIDE RECORDS SUMMARY | 2025-02-12 17:59 | External Medical Summary ---
Author Name Unknown Address Unknown Organization K01:[facility] - [address] [facility] [address] Laboratory Report Ordering Provider Test Date Status SHANNON CHAMPAGNE 12/04/2024 13:58:15 Final Observation Date Value Abnormality Reference (Units ) Status SYNC LEUKOCYTES IN BLOOD BY AUTOMATED COUNT 12/04/2024 13:58:15 14.15 Above high normal 4.00-10.80 (K/uL) Final Segs 12/04/2024 13:58:15 74.6 40.0-75.0 (%) Final Lymphs % 12/04/2024 13:58:15 14.1 Below low normal 18.0-42.0 (%) Final Monos 12/04/2024 13:58:15 7.7 1.0-11.0 (%) Final Eosinophils 12/04/2024 13:58:15 1.6 0.0-6.0 (%) Final Basos 12/04/2024 13:58:15 0.8 0.0-2.0 (%) Final Immature Granulocyte, Percent 12/04/2024 13:58:15 1.2 0.0-2.0 (%) Final Absolute Segs 12/04/2024 13:58:15 10.56 Above high normal 1.80-7.70 (K/uL) Final Lymphs, absolute 12/04/2024 13:58:15 2.00 1.00-4.80 (K/ul) Final Monos, Abs 12/04/2024 13:58:15 1.09 0.00-1.10 (K/uL) Final Eos, Abs 12/04/2024 13:58:15 0.22 0.00-0.70 (K/uL) Final Basos, Abs 12/04/2024 13:58:15 0.11 0.00-0.20 (K/uL) Final Immature Granulocytes, Number 12/04/2024 13:58:15 0.17 0.00-0.20 (K/uL) Final Performing Location LABORATORY [facility] [place] - [facility] [address] [facility] [address]
--- OUTSIDE RECORDS SUMMARY | 2025-02-12 17:59 | External Medical Summary ---
Author Name Unknown Address Unknown Organization K01:[facility] [place] [facility] [address] [place] [address] Laboratory Report Ordering Provider Test Date Status SHANNON CHAMPAGNE 12/07/2024 14:09:58 Final Normal: <30 mg/g creatinine< br/>High: 30-300 mg/g creatinine
Very High: >300 mg/g creatinine
Nephrotic: >2200 mg/g creatinine Observation Date Value Abnormality Reference (Units ) Status Albumin, Urine 12/07/2024 14:09:58 46.00 (mg/dL) Final Creatinine, Urine 12/07/2024 14:09:58 197 (mg/dL) Final Albumin/Creatinine [Mass Ratio] in Urine 12/07/2024 14:09:58 234 Above high normal <30 (mg/g Creat) Final Performing Location [facility] [facility] [place] [facility] [address] [place] [address]
--- OUTSIDE RECORDS SUMMARY | 2025-02-12 17:59 | External Medical Summary ---
Author Name Unknown Address Unknown Organization K01:LAB[facility]ATORY [facility] - [address] [place] [address] Laboratory Report Ordering Provider Test Date Status SHANNON CHAMPAGNE 12/04/2024 13:58:15 Final Observation Date Value Abnormality Reference (Units ) Status Phosphate 12/04/2024 13:58:15 3.7 2.5-4.8 (m g/dL) Final Performing Location [facility] - [address] [place] [address]
--- OUTSIDE RECORDS SUMMARY | 2025-02-12 17:59 | External Medical Summary | Summary of Care ---
Author Name Unknown Organization [facility] Address [address] [place] [address] Phone [phone] Care Team Providers Care Cementing Bulk Material Operator Name Role Phone Lo Chand DO Primary Care Provider Reason for Visit * Reason Onset Date Comments Other 12/06/2024 Encounter Details Date Type Department Care Team ([facility] st Contact Info) Description 12/06/2024 Telephone Nephrology [address] [place] [address] Services, Scheduling [address] [place] [address] Other Allergies Active Allergy Reactions Criticality Noted Date [...] as of this encounter (statuses as of 12/06/2024) Medications Acetaminophen ER 650 MG Oral Tablet Extended Release Take 1 Tablet by mouth every 8 hours as needed (take one tablet for knee pain up to 4 times daily). 09/26/20 Active oxygen GAS Use as directed 2 L/min(Oxygen) as needed for Shortness of Breath. Use as needed with activity 01/20/20 Active OneToOatmeal Verio In Vitro Strip (Glucose Blood)Indications: Type 2 diabetes mellitus with stage 4 chronic kidney disease, without long-term current use of insulin ([facility]) Test once daily Dx E11.9 100 Strip 5 01/05/20 Active Ventolin HFA 108 (90 Base) MCG/ACT Inhalation Aerosol SolutionIndication s:COPD, group D, by GOLD 2017 classification ([facility]) Inhale by mouth 2 Puffs every 4 hours as needed for Cough or Shortness of Breath. 18 g 5 03/03/20 Active Additional Information Patient not taking.Reported on [...] Tablet by mouth in the morning. 11/10/19 Active Cyanocobalamin 100 MCG Oral Tablet Take [...] urinary incontinence. 100 Each 5 10/07/20 Active Tamsulosin HCl 0.4 MG Oral Capsule (Flomax) Take 1 Capsule by mouth in the morning. 12/23/19 24 Active hydrOXYzine HCl 25 MG Oral TabletIndications: Insomnia, unspecified type Take 1 Tablet by mouth every night at bedtime. 90 Tablet 3 06/07/20 24 Active Additional Information Patient not taking.Reported on [...] and 1 Tablet before bedtime. 270 Tablet 04/10/20 Active oxyBUTYnin Chloride 5 MG Oral [...] bedtime. 10 days . 11/25/19 Active Nystatin 227678 UNIT/GM External Cream Apply topically to affected area 2 times a day. To affacted area for two weeks. 60 g 2 12/04/19 Active Ondansetron 4 MG Oral Tablet Disintegrating (Zofran)Indication s:Nausea without vomiting Place 1 Tablet on tongue every 8 hours as needed for Nausea or Vomiting. dissolve on tongue. 90 Tablet 1 12/04/19 25 Active documented as of this encounter (statuses as of 12/06/2024) Active Problems Problem Noted Date Diagnosed Date [...] as of this encounter (statuses as of 12/06/2024) Resolved Problems Problem Noted Date Diagnosed Date [...] as of this encounter (statuses as of 12/06/2024) Immunizations Name Administration Dates Next Due Pneumococcal Conjugate Vacc, 13 Valent (Prevnar) 06/05/2019 Pneumococcal Conjugate Vacci ne, 20-valent ([id number]) 11/11/2023 Pneumococcal Polysaccharide PPV23 (Pneumovax) 06/08/2016,03/01/2011 Season [...] encounter Miscellaneous Notes * Telephone Encounter - Margarette Fitzgerald RN - 12/06/2024 1:25 PM EST TE with pt. She reports that the home health nurse flushed her nephrostomy tube and notes that there is purulent drainage in the drainage bag. Pt is followed by Dr Francisco potter and pt advised tocall him for follow up. She states that she has a call out to that office. She denies pain or fever. * Telephone Encounter - Antonia Coleman OSA - 12/06/2024 1:18 PM EST Mercedes Baird on the line from Home Health, the pt's nephrostomy has pus instead of urine coming out. Please give the pt a call at [phone] Thank you documented in this encounter Plan of Treatment Upcoming Encounters Date Type Department Care Team (Late st Contact Info) Description 01/23/2025 10:30 AM EDT Office Visit Family Medicine [address] [place] [phone] Lo Chand[address] [place] [address] 02/25/2025 2:00 PM EDT Office Visit Nephrology [address] [place] [address] ZeMaribel molina PA-C [address] [place] [address] 05/14/2025 10:30 AM EDT Office Visit Cardiology [address] [place] [address] Francisco Javier Mancilla PA-C [address] [place] [address] Health Maintenance Due Date Last Done Comments [...] 12/04/2024, 02/0 11/2023, 11/15/2022, Additional history exists Lipid Panel 12/04/2029 12/04/2024, [...] Nesbitt Spouse Health Care Agent Care Teams Cementing Bulk Material Operator Relationship Specialty Start Date End Date Lo Chand DO [address] [place] [address] [place] [phone] PCP - General Internal Medicine 07/29/20 documented as of this encounter
--- OUTSIDE RECORDS SUMMARY | 2025-02-12 17:59 | External Medical Summary | Summary of Care ---
Author Name Unknown Organization [facility] Address [address] [facility] [address] Phone [phone] Care Team Providers Care Resistance Welder Name Role Phone Lo Chand DO Primary Care Provider Reason for Visit * Reason Comments Outpatient Testing Encounter Details Date Type Department Care Team (Late st Contact Info) Description 12/07/2024 2:10 PM EST Laboratory Laboratory [address] [place] [phone] , Specimen Drop Off [address] [place] [address] Arrived Allergies Active Allergy Reactions Criticality Noted Date [...] as of this encounter (statuses as of 12/07/2024) Medications Acetaminophen ER 650 MG Oral Tablet Extended Release Take 1 Tablet by mouth every 8 hours as needed (take one tablet for knee pain up to 4 times daily). 09/26/20 Active oxygen GAS Use as directed 2 L/min(Oxygen) as needed for Shortness of Breath. Use as needed with activity 01/20/20 Active OneToJiff Verio In Vitro Strip (Glucose Blood)Indications: Type 2 diabetes mellitus with stage 4 chronic kidney disease, without long-term current use of insulin ([facility]) Test once daily Dx E11.9 100 Strip 5 01/05/20 Active Ventolin HFA 108 (90 Base) MCG/ACT Inhalation Aerosol SolutionIndication s:COPD, group D, by GOLD 2017 classification ([facility]) Inhale by mouth 2 Puffs every 4 [...] as directed for urinary incontinence. 100 Each 10/07/20 Active Incontinence Supplies Poise pads. Use [...] bedtime. 10 days . 11/25/19 Active Nystatin 675867 UNIT/GM External Cream Apply topically to affected area 2 times a day. To affacted area for two weeks. 60 g 2 12/04/19 Active Ondansetron 4 MG Oral Tablet Disintegrating (Zofran)Indication s:Nausea without vomiting Place 1 Tablet on tongue every 8 hours as needed for Nausea or Vomiting. dissolve on tongue. 90 Tablet 1 12/04/19 Active documented as of this encounter (statuses as of 12/07/2024) Active Problems Problem Noted Date Diagnosed Date [...] as of this encounter (statuses as of 12/07/2024) Resolved Problems Problem Noted Date Diagnosed Date [...] as of this encounter (statuses as of 12/07/2024) Immunizations Name Administration Dates Next Due Pneumococcal Conjugate Vacc, 13 Valent (Prevnar) 06/05/2019 Pneumococcal Conjugate Vacci ne, 20-valent ([id number]) 11/11/2023 Pneumococcal Polysaccharide PPV23 (Pneumovax) 06/08/2016,03/01/2011 Season [...] 10:30 AM EDT Office Visit Family Medicine [address] [place] [phone] Lo Chand [address] [place] [address] 02/25/2025 2:00 PM EDT Office Visit Nephrology [address] [place] [address] Maribel Orta PA-C [address] [place] [address] 05/14/2025 10:30 AM EDT Office Visit Cardiology [address] [place] [address] Francisco Javier Mancilla PA-C [address] [place] [address] Health Maintenance Due Date Last Done Comments [...] FOR COPD 12/04/2025 12/04/2024 Phosphate 12/04/2025 12/04/2024, 020 11/2023, 11/15/2022, Additional history exists Lipid Panel 12/04/2029 12/04/2024, 020 11/2023, 12/10/2022, Additional history exists RETIRED - [...] Nesbitt Spouse Health Care Agent Care Teams Resistance Welder Relationship Specialty Start Date End Date Lo Chand DO [address] [place] [address] [place] [phone] PCP - General Internal Medicine 07/29/20 documented as of this encounter
--- OUTSIDE RECORDS SUMMARY | 2025-02-12 17:59 | External Medical Summary ---
Author Name Unknown Address Unknown Organization K01:LABORATORY [facility] [place] - [address] [place] [address] Laboratory Report Ordering Provider Test Date Status SHANNON CHAMPAGNE 12/04/2024 13:58:15 Final Observation Date Value Abnormality Reference (Units ) Status Folic Acid 12/04/2024 13:58:15 5.2 >4.5 (ng/ mL) Final Performing Location LABORATORY [facility] [place] - [address] [place] [address]
--- OUTSIDE RECORDS SUMMARY | 2025-02-12 17:59 | External Medical Summary ---
Author Name Unknown Address Unknown Organization K01:[facility] [place] - [address] [facility] [address] Laboratory Report Ordering Provider Test Date Status SHANNON CHAMPAGNE 12/04/2024 13:58:15 Final Observation Date Value Abnormality Reference (Units ) Status HbA1C 12/04/2024 13:58:15 5.5 4.0-5.6 (% ) Final The use of HbA1c to monitor glycemic status is based on normal hemoglobin and HbA composition. This test should not be used in patients with abnormal hemoglobin that affects the half life of the red blood cell or the in vivo glycation rates. Glucose, estimated average 12/04/2024 13:58:15 111 <126 (mg/dL) Final Performing Location [facility] [place] - [address] [place] [address]
--- OUTSIDE RECORDS SUMMARY | 2025-02-12 17:59 | External Medical Summary ---
Author Name Unknown Address Unknown Organization K01:LAB[facility]ATORY [facility] - [address] [facility] [address] Laboratory Report Ordering Provider Test Date Status SHANNON CHAMPAGNE 12/04/2024 13:58:15 Final Observation Date Value Abnormality Reference (Units ) Status WBC, Total 12/04/2024 13:58:15 14.15 Above high normal 4 .00-10.80 (K/uL) Final RBC 12/04/2024 13:58:15 3.51 3.85-5.15 (M/uL) Final Hemoglobin 12/04/2024 13:58:15 10.6 Below low normal 12 .0-15.3 (g/dL) Final Anemia reflex testing trigge rs on a HGB < 12.0 for Females and HGB < 13.0 for Males in accordance with the WHO Anemia Guidelines
Anemia reflex testing triggers on a HGB < 12.0 for Females and HGB < 13.0 for Males in accordance with the WHO Anemia Guidelines HCT 12/04/2024 13:58:15 36.3 36.0-45.2 (%) Final MCV 12/04/2024 13:58:15 103.4 81.5-97.5 (fL) Final MCH 12/04/2024 13:58:15 30.2 27.0-34.0 (pg) Final MCHC 12/04/2024 13:58:15 29.2 32.0-36.0 (g/dL) Final RDW 12/04/2024 13:58:15 13.5 11.5-15.5 (%) Final Platelets 12/04/2024 13:58:15 578 Above hi gh normal 140-400 (K/uL) Final MPV 12/04/2024 13:58:15 11.5 6.6-11.1 ( fL) Final Nucleated erythrocytes/100 leukocytes [Ratio] in Blood by Automated count 12/04/2024 13:58:15 0 <=0 (/100 WBCs) Fi nal Performing Location [facility] [place] [address] [facility] [address]
--- OUTSIDE RECORDS SUMMARY | 2025-02-12 17:59 | External Medical Summary ---
Author Name Unknown Address Unknown Organization K01:LABORATORY [place] [address] [place] [address] Laboratory Report Ordering Provider Test Date Status SHANNON CHAMPAGNE 12/04/2024 13:58:15 Final Observation Date Value Abnormality Reference (Units ) Status Retic, % (auto) 12/04/2024 13:58:15 3.15 Above high normal 0.80-1.90 (%) Final Reticulocytes, Absolute 12/04/2024 13:58:15 109.0 Above high normal 31.3-100.1 (K/uL) Final Reticulocyte fraction, immature 12/04/2024 13:58:15 22.0 Above high normal 2.5-20.6 (%) Final Reticulocyte HGB 12/04/2024 13:58:15 31.2 29.7-37.4 (pg) Final Performing Location [facility] [place] [facility] [place] [address]
--- OUTSIDE RECORDS SUMMARY | 2025-02-12 17:59 | External Medical Summary ---
Author Name Unknown Address Unknown Organization K01:LAB[facility]ATORY [facility] - [address] [facility] [place] [address] Laboratory Report Ordering Provider Test Date Status SHANNON CHAMPAGNE 12/04/2024 13:58:15 Final Observation Date Value Abnormality Reference (Units ) Status BUN 12/04/2024 13:58:15 16 6-20 (mg/dL) Final Creatinine 12/04/2024 13:58:15 2.0 Above high normal 0.5-1.0 (mg/dL) Final Glomerular filtration rate/1.73 sq M.predicted [Volume Rate/Area] in Serum, Plasma or Blood by Creatinine-based formula (CKD-EPI) 12/04/2024 13:58:15 26 Below low normal >=60 (mL/min) Final eGFR is calculated based on the CKD-EPI 2020 equation. Sodium 12/04/2024 13:58:15 139 135-146 (m mol/L) Final Potassium 12/04/2024 13:58:15 4.5 3.5-5.1 (m mol/L) Final Cl 12/04/2024 13:58:15 109 Above high normal 98 -107 (mmol/L) Final CO2 12/04/2024 13:58:15 14 Below low normal 22- 32 (mmol/L) Final Anion gap 12/04/2024 13:58:15 16 Above high normal 7- 15 (mmol/L) Final Glucose 12/04/2024 13:58:15 103 70-120 (mg /dL) Final Albumin 12/04/2024 13:58:15 3.7 Below low normal 3.8 -5.0 (g/dL) Final AST (Aspartate aminotransferase) 12/04/2024 13:58:15 74 Above high normal 10-35 (U/L) Final Alk Phos 12/04/2024 13:58:15 252 Above high normal 35 -130 (U/L) Final Bilirubin, Total 12/04/2024 13:58:15 0.3 <=1 .2 (mg/dL) Final Calcium 12/04/2024 13:58:15 9.9 8.4-10.2 ( mg/dL) Final Protein 12/04/2024 13:58:15 7.6 6.0-8.3 (g /dL) Final ALT (Alanine aminotransferase) 12/04/2024 13:58:15 91 Above high normal 10-35 (U/L) Final Performing Location LAB[facility]ATORY [facility] [place] - [address] [facility] [address]
--- OUTSIDE RECORDS SUMMARY | 2025-02-12 17:59 | External Medical Summary | Summary of Care ---
Author Name Unknown Organization [facility] Address [address] [place] [address] Phone [phone] Care Team Providers Care Military Technology Specialist Name Role Phone Lo Chadn DO Primary Care Provider Reason for Visit * Reason Comments Outpatient Testing Encounter Details Date Type Department Care Team (Late st Contact Info) Description 12/04/2024 2:00 PM EST Laboratory Laboratory [address] [place] [id number] [place] [address] Hyperlipidemia with target LDL less than 70; Chronic kidney disease, stage 4 (severe) ([facility]); Type 2 diabetes mellitus with hemoglobin A1c goal of less than 8.0% ([facility]) Allergies Active Allergy Reactions Criticality Noted Date [...] long-term current use of insulin ([facility]) Test once daily Dx E11.9 100 Strip 5 01/05/20 Active Ventolin HFA 108 (90 Base) MCG/ACT Inhalation Aerosol SolutionIndication s:COPD, group D, by GOLD 2017 classification ([facility]) Inhale by mouth 2 Puffs every 4 [...] bedtime. 10 days . 11/25/19 Active Nystatin 857848 UNIT/GM External Cream Apply topically to affected [...] (Prevnar) 06/05/2019 Pneumococcal Conjugate Vacci ne, 20-valent ([id number]) 11/11/2023 Pneumococcal Polysaccharide PPV23 (Pneumovax) 06/08/2016,03/01/2011 Season [...] 10:30 AM EDT Office Visit Family Medicine [address] [phone] Chand, Lo Gómez[address] [place] [address] 02/25/2025 2:00 PM EDT Office Visit Nephrology [address] [place] [address] Maribel Orta PA-C [address] [place] [address] 05/14/2025 10:30 AM EDT Office Visit Cardiology [address] [place] [address] Francisco Javier Mancilla PA-C [address] [place] [address] Pending Results Name Type Priority Associated Diagnoses Date /Time LIPID PANEL WITH DIRECT LDL IF TG IS HIGH Lab Routine Hyperlipidemia with target LDL less than 70 12/04/2024 1:58 PM EST COMPREHENSIVE METABOLIC PANEL Lab Routine Chronic kidney disease, stage 4 (severe) ([facility]) Hyperlipidemia with target LDL less than 70 12/04/2024 1:58 PM EST PHOSPHORUS Lab Routine Chronic kidney disease, stage 4 (severe) ([facility]) 12/04/2024 1:58 PM EST HEMOGLOBIN A1C Lab Routine Type 2 diabetes mellitus with hemoglobin A1c goal of less than 8.0% ([facility]) 12/04/2024 1:58 PM EST CBC WITH WBC DIFFERENTIAL AND ANEMIA REFLEX WORKUP Lab Routine Chronic kidney disease, stage 4 (severe) ([facility]) 12/04/2024 1:58 PM EST ANEMIA CBC Lab Routine Chronic kidney disease, stage 4 (severe) ([facility]) 12/04/2024 1:58 PM EST DIFFERENTIAL, AUTOMATED Lab Routine Chronic kidney disease, stage 4 (severe) ([facility]) 12/04/2024 1:58 PM EST ANEMIA REFLEX CHEMISTRY HOLD Lab Routine Chronic kidney disease, stage 4 (severe) ([facility]) 12/04/2024 1:58 PM EST Health Maintenance Due [...] Nesbitt Spouse Health Care Agent Care Teams Military Technology Specialist Relationship Specialty Start Date End Date Lo Chand DO [address] [place] [address] [place] [address] PCP - General Internal Medicine 07/29/20 documented as of this encounter
--- OUTSIDE RECORDS SUMMARY | 2025-02-12 17:59 | External Medical Summary | Summary of Care ---
Author Name Unknown Organization [facility] Address [address] [place] [facility] [place] [address] Phone [phone] Care Team Providers Care Diesel Scoop Operator Name Role Phone Lo Chand DO Primary Care Provider + [phone] Reason for Referral * Evaluate & Treat - Unlimited Visits (Within 10 days (routine)) - Authorized Specialty Diagnoses / Procedures Referred By Peggy parry Referred To Contact Urology Diagnoses Obstruction of nephrostomy tube (HCC) History of kidney stones Lo Chand DO [address] [place] [address] [place] [address] Phone: tel: fax: Referral ID Status Reason Start Date Expiration Date Visits Requested Visits Authorized [id number] Authorized Specialty Services Required 12/04/2024 999 [id number] Question Answer Referral Priority Within 10 days (routine) Where should this appointment be scheduled? External - [facility] What is the patient being referred for? Kidney Stone/Calculi Has Imaging been done? Yes Comments Dr. Clancy * Evaluate & Treat - Unlimited Visits (Within 30 days (routine)) - Authorized Specialty Diagnoses / Procedures Referred By Peggy parry Referred To Contact Pain Management / Pain Medicine Diagnoses Other chronic pain Lo Chand DO [address] [place] [address] [place] [address] Phone: tel: fax: Referral ID Status Reason Start Date Expiration Date Visits Requested Visits Authorized [id number] Authorized Specialty Services Required 12/04/2024 999 [id number] Question Answer Referral Priority Within 30 days (routine) Where should this appointment be scheduled? External - [facility] Reason for referral? Non Interventional Pain Management What is the preferred location to have this test performed? Non [facility] Comments Patient Name: Elise Nesbitt Date of : 1955 Department Phone Number: : [phone] (if unable to have a MRI) is recommended if any of the following apply: 1. Patient has neck or back pain with radiation to extremities. A previous MRI will be accepted if symptoms unchanged since prior MRI. 2. Spinal surgery since last MRI. If yes, order a MRI with and without contrast. 3. Hx or ongoing cancer treatment. Patient will need spine x-ray (Ap/Lat) for axial neck or back pain if not done previously. Fax No. [facility] [phone] or contact front office clerk [phone] Fax No. [facility] [phone] or contact front office clerk [phone] Fax No. [facility] [phone] or contact front office clerk [phone] Reason for Visit * Reason Onset Date Comments Hospital Follow-Up Hospital Follow-Up 12/04/2024 Encounter Details Date Type Department Care Team (Late st Contact Info) Description 12/04/2024 1:10 PM EST Office Visit Family Medicine [address] [place] [id number] Lo Chand DO [address] [place] [address] [place] [address] Hospital discharge follow-up*; Nausea without vomiting; Type 2 diabetes mellitus with hemoglobin A1c goal of less than 8.0% ([facility]); Chronic kidney disease, stage 4 (severe) ([facility]); HTN, goal below 140/90; Hyperlipidemia with target LDL less than 70; 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 Active oxygen GAS Use as directed 2 L/min(Oxygen) as needed for Shortness of Breath. Use as needed with activity Active OneTouch [employer]io In Vitro Strip (Glucose Blood)Indications :Type 2 diabetes mellitus with stage 4 chronic kidney disease, without long-term current use of insulin ([facility]) Test once daily Dx E11.9 100 Strip 5 Active Ventolin HFA 108 (90 Base) MCG/ACT Inhalation Aerosol SolutionIndicatio ns:COPD, group D, by GOLD 2017 classification ([facility]) Inhale by mouth 2 Puffs every 4 hours as needed for Cough or Shortness of Breath. 18 g 5 Active Additional Information Patient not taking.Reported on 12/04/2024 Riboflavin 400 MG Oral Tablet TAKE ONE TABLET IN THE MORNING 90 Tablet 1 Active Additional Information Patient not taking.Reported on 12/04/2024 Ferrous Gluconate 324 (37.5 Fe) MG Oral Tablet Take 1 Tablet by mouth daily with breakfast. Active Folic Acid 1 MG Oral Tablet Take 1 Tablet by mouth in the morning. Active Cyanocobalamin 100 MCG Oral Tablet Take 1 Tablet by mouth in the morning. 90 Tablet 1 Active Additional Information Patient not taking.Reported on 11/26/2024 Loperamide HCl 2 MG Oral Capsule (Imodium) Take 1 Capsule by mouth 4 times a day as needed for Diarrhea. Active Incontinence Supplies Disposable briefs size XL. Use as directed for urinary incontinence. 100 Each 5 Active Incontinence Supplies Poise pads. Use as directed for urinary incontinence. 100 Each 5 Active Tamsulosin HCl 0.4 MG Oral Capsule (Flomax) Take 1 Capsule by mouth in the morning. Active hydrOXYzine HCl 25 MG Oral TabletIndications :Insomnia, unspecified type Take 1 Tablet by mouth every night at bedtime. 90 Tablet 3 Active Additional Information Patient not taking.Reported on 12/04/2024 Vitamin D3 50 MCG (2000 UT) Oral CapsuleIndication s:Vitamin D deficiency TAKE ONE CAPSULE BY MOUTH IN THE MORNING Strength: 50 MCG (2000 UT) 90 Capsule 3 Active Additional Information Patient not taking.Reported on 12/04/2024 Midodrine HCl 5 MG Oral Tablet (Proamatine) Take 1 Tablet by mouth in the morning and 1 Tablet at noon and 1 Tablet before bedtime. 270 Tablet 2 Active oxyBUTYnin Chloride 5 MG Oral Tablet (Ditropan) Take 1 Tablet by mouth in the morning. In the morning.. 90 Tablet 2 Active Additional Information Patient not taking.Reported on 12/04/2024 MAGnesium-Oxide 400 (240 Mg) MG Oral Tablet (Magnesium Oxide -Mg Supplement) TAKE ONE TABLET BY MOUTH EVERY DAY 28 Tablet Active Additional Information Patient not taking.Reported on 12/04/2024 Metoprolol Succinate ER 25 MG Oral Tablet Extended Release 24 Hour (toPROL XL) TAKE ONE TABLET TWICE DAILY 64 Tablet Active Additional Information Patient not taking.Reported on 12/04/2024 Pantoprazole Sodium 40 MG Oral Tablet Delayed Release (Protonix)Indicat ions:Gastroesopha geal reflux disease with esophagitis without hemorrhage Take 1 Tablet by mouth in the morning and 1 Tablet before bedtime. 56 Tablet 11 Active OXcarbazepine 300 MG Oral Tablet (Trileptal)Indica tions:Dyslipidemi a, goal LDL below 100 TAKE ONE TABLET BY MOUTH TWICE DAILY 180 Tablet 1 Active Additional Information Patient not taking.Reported on 12/04/2024 Atorvastatin Calcium 40 MG Oral Tablet (Lipitor)Indicati ons:Dyslipidemia, goal LDL below 100 TAKE ONE TABLET BY MOUTH IN THE MORNING 90 Tablet 1 Active Additional Information Patient not taking.Reported on 12/04/2024 BD PosiFlush 0.9 % Intravenous Solution USE DIRECTED FOR tube flushing Active Amoxicillin-Pot Clavulanate 875-125 MG Oral Tablet (Augmentin) Take 1 Tablet by mouth in the morning and 1 Tablet before bedtime. 10 days . 025 Active Nystatin 714933 UNIT/GM External Cream Apply topically to affected area 2 times a day. To affacted area for two weeks. 60 g 2 025 Active Ondansetron 4 MG Oral Tablet Disintegrating (Zofran)Indicatio ns:Nausea without vomiting Place 1 Tablet on tongue every 8 hours as needed for Nausea or Vomiting. dissolve on tongue. 90 Tablet 1 025 Active Advanced Probiotic 10 Oral Capsule 625 mg. 023 2024 Discontinued Ondansetron 4 MG Oral Tablet Disintegrating (Zofran)Indicatio ns:Nausea without vomiting,Nausea and vomiting, unspecified vomiting type Place 1 Tablet on tongue every 8 hours as needed for Nausea or Vomiting. dissolve on tongue. 90 Tablet 1 023 2024 Discontinued(R efill) Nystatin [id number] UNIT/GM External Cream Apply topically to affected area 2 times a day. To affacted area for two weeks. 60 g 2 024 2024 Discontinued(R efill) documented as of this encounter (statuses as [...] (Prevnar) 06/05/2019 Pneumococcal Conjugate Vacci ne, 20-valent ([id number]) 11/11/2023 Pneumococcal Polysaccharide PPV23 (Pneumovax) 06/08/2016,03/01/2011 Season [...] No 10/30/2024 Does the household have a [facility] source of income? (Household - for ages [...] money to buy more. Never true 10/30/19 Within the past 12 months, t he [...] Sign Reading Time Taken Comments Blood Pressure 106/72 12/04/2024 1:07 PM EST Pulse 107 12/04/2024 1:07 PM EST Temperature 36.6 °C (97.8 °F) 12/04/2024 1:07 PM ES T Respiratory Rate - - Oxygen Saturation 99% 12/04/2024 1:07 PM EST Inhaled Oxygen Concentration - - Weight 71.9 kg (158 lb 9.6 oz) 12/04/2024 1:07 P M EST Height - - Body Mass Index 32.03 12/06/2021 10:37 PM EST documented in this encounter Functional Status * Are you deaf or do you have serious difficulty hearing? Answer Date of Assessment Author No 12/06/2021 10:37 PM EST Yovani Alonso RN * Are you blind or do [...] Assessment Author Yes 12/06/2021 10:37 PM EST Yovani Alonso RN * Because of a physical, mental, [...] Yovani Tinajero RN documented in this encounter Progress Notes * Lo Chand, - 12/04/2024 1:16 PM EST SUBJECTIVE: Elise Nesbitt is a 69 year old female. Chief Complaint Patient presents with Hospital Follow-Up Hospital Follow-Up Recent Admission: Patient was recently admitted to [facility]. The date of discharge was 11/25/24. Discharge report received and reviewed. Admitted with sepsis secondary to UTI/pyelonephritis and obstructive left hydronephrosis. Was treated with antibiotics with resolution of her bacteremia. Urostomy tube was replaced. She underwent an penicillin challenge test and was discharged on augmentin to complete her course of antibiotics. Pain was treated with tylenol and oxycodone inpatient and she was given phenergan for nausea. Her metoprolol was held during her hospitalization. HPI: Elise Nesbitt presents today with her daughter for HD follow up. She is feeling better today. She is taking the augmentin, midodrine, and zofran. She will finish the antibiotic in 2 days and then will resume the other medications. Nephrostomy tube is draining well. Some "hot flash" type symptoms - no fevers or chills. Energy level is improving. She was soiling herself prior to the hospitalization because she was too weak to get out of bed. She continues to have diarrhea - she is supposed to be using metamucil but she is not taking this. Appetite is better. She is not taking anything for pain. Currently pain is 8/10. Help at Home is involved as is home health. Nursing and PT is involved. Patient Active Problem List Diagnosis Reflux esophagitis Rosacea History of colon cancer Pruritus HTN, goal below 140/90 Renal cyst, left DDD (degenerative disc disease), lumbar Oropharyngeal dysphagia Hyperlipidemia with target LDL less than 70 Obesity hypoventilation syndrome ([facility]) Anxiety state History of kidney stones Type 2 diabetes mellitus with hemoglobin A1c goal of less than 8.0% ([facility]) Diastolic dysfunction CALI (obstructive sleep apnea) COPD, group D, by GOLD 2017 classification ([facility]) Moderate persistent asthma without complication Senile osteoporosis Myoclonic jerking Hypertensive kidney disease with chronic kidney disease stage IV ([facility]) Chronic kidney disease, stage 4 (severe) ([facility]) Bipolar disorder, currently in remission, most recent episode unspecified ([facility]) Stress incontinence Current Outpatient Medications Medication Sig Dispense Refill oxygen GAS Use as directed 2 L/min(Oxygen) as needed for Shortness of Breath. Use as needed with activity Ondansetron 4 MG Oral Tablet Disintegrating (Zofran) Place 1 Tablet on tongue every 8 hours as needed for Nausea or Vomiting. dissolve on tongue. 90 Tablet 1 Incontinence Supplies Disposable briefs size XL. Use as directed for urinary incontinence. 100 Each5 Incontinence Supplies Poise pads. Use as directed for urinary incontinence. 100 Each 5 Midodrine HCl 5 MG Oral Tablet (Proamatine) Take 1 Tablet by mouth in the morning and 1 Tablet at noon and 1 Tablet before bedtime. 270 Tablet 2 Pantoprazole Sodium 40 MG Oral Tablet Delayed Release (Protonix) Take 1 Tablet by mouth in the morning and 1 Tablet before bedtime. 56 Tablet 11 BD PosiFlush 0.9 % Intravenous Solution USE DIRECTED FOR tube flushing Acetaminophen ER 650 MG Oral Tablet Extended Release Take 1 Tablet by mouth every 8 hours as needed(take one tablet for knee pain up to 4 times daily). (Patient not taking: Reported on 12/04/2024) [employer] In Vitro Strip (Glucose Blood) Test once daily Dx E11.9 100 Strip 5 Ventolin HFA 108 (90 Base) MCG/ACT Inhalation Aerosol Solution Inhale by mouth 2 Puffs every 4 hours as needed for Cough or Shortness of Breath. (Patient not taking: Reported on 10/30/2024) 18 g 5 Riboflavin 400 MG Oral Tablet TAKE ONE TABLET IN THE MORNING (Patient not taking: Reported on 12/04/2024) 90 Tablet 1 Ferrous Gluconate 324 (37.5 Fe) MG Oral Tablet Take 1 Tablet by mouth daily with breakfast. (Patient not taking: Reported on 01/12/2024) Folic Acid 1 MG Oral Tablet Take 1 Tablet by mouth in the morning. (Patient not taking: Reported on10/30/2024) Advanced Probiotic 10 Oral Capsule 625 mg. (Patient not taking: Reported on 12/04/2024) Cyanocobalamin 100 MCG Oral Tablet Take 1 Tablet by mouth in the morning. (Patient not taking: Reported on 11/26/2024) 90 Tablet 1 Loperamide HCl 2 MG Oral Capsule (Imodium) Take 1 Capsule by mouth 4 times a day as needed for Diarrhea. (Patient not taking: Reported on 10/30/2024) Nystatin [id number] UNIT/GM External Cream Apply topically to affected area 2 times a day. To affacted area for two weeks. 60 g 2 Tamsulosin HCl 0.4 MG Oral Capsule (Flomax) Take 1 Capsule by mouth in the morning. (Patient not taking: Reported on 12/04/2024) hydrOXYzine HCl 25 MG Oral Tablet Take 1 Tablet by mouth every night at bedtime. (Patient not taking: Reported on 12/04/2024) 90 Tablet 3 Vitamin D3 50 MCG (2000 UT) Oral Capsule TAKE ONE CAPSULE BY MOUTH IN THE MORNING Strength: 50 MCG (2000 UT) (Patient not taking: Reported on 12/04/2024) 90 Capsule 3 oxyBUTYnin Chloride 5 MG Oral Tablet (Ditropan) Take 1 Tablet by mouth in the morning. In the morning.. (Patient not taking: Reported on 12/04/2024) 90 Tablet 2 MAGnesium-Oxide 400 (240 Mg) MG Oral Tablet (Magnesium Oxide -Mg Supplement) TAKE ONE TABLET BY MOUTH EVERY DAY (Patient not taking: Reported on 12/04/2024) 28 Tablet 11 Metoprolol Succinate ER 25 MG Oral Tablet Extended Release 24 Hour (toPROL XL) TAKE ONE TABLET TWICE DAILY (Patient not taking: Reported on 12/04/2024) 64 Tablet 11 OXcarbazepine 300 MG Oral Tablet (Trileptal) TAKE ONE TABLET BY MOUTH TWICE DAILY (Patient not taking: Reported on 12/04/2024) 180 Tablet 1 Atorvastatin Calcium 40 MG Oral Tablet (Lipitor) TAKE ONE TABLET BY MOUTH IN THE MORNING (Patient not taking: Reported on 12/04/2024) 90 Tablet 1 Amoxicillin-Pot Clavulanate 875-125 MG Oral Tablet (Augmentin) Take 1 Tablet by mouth in the morning and 1 Tablet before bedtime. 10 days . No current facility-administered medications for this visit. Current and discharge medications have been reconciled. 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 Hydromorphone Iodinated Contrast Media Ivp Dye Hives Meperidine Morphine Morphine And Codeine Itching Salicylates Edema Other Eyes, lips Salicylates Tramadol OBJECTIVE: BP 106/72 | Pulse 107 | Temp 97.8 °F (36.6 °C) | Wt 158 lb 9.6 oz (71.9 kg) | SpO2 99% | BMI 32.03 kg/m² | BSA 1.73 m² Review Of Systems: Skin: negative Eyes: negative Ears/Nose/Throat: negative Respiratory: OLSON Cardiovascular: negative Gastrointestinal: (+) diarrhea Genitourinary: negative Musculoskeletal: negative Neurologic: negative Psychiatric: negative Hematologic/Lymphatic/Immunologic: negative Endocrine: negative PHYSICAL EXAM: General: alert, healthy, no distress, well nourished, and well developed Neck: supple, no adenopathy, thyroid normal size, non-tender, without nodularity Heart: regular rate & rhythm and no murmur Lungs: chest symmetric with normal AP diameter, no chest deformities noted, normal respiratory rateand rhythm, lungs clear to auscultation Abdomen: abdomen soft and TTP in the left lower quadrant Back: Extremities: no joint deformities, effusion, or inflammation, no edema Neuro Exam: alert & oriented x 3 with fluent speech, no focal motor/sensory deficits, gait normal Skin: skin color, texture, turgor are normal, no rashes or significant lesions ASSESSMENT/PLAN: Hospital discharge follow-up (Primary) - DISCH MED RECON CUR MED LIS Nausea without vomiting - Ondansetron 4 MG Oral Tablet Disintegrating (Zofran); Place 1 Tablet on tongue every 8 hours as needed for Nausea or Vomiting. dissolve on tongue. Type 2 diabetes mellitus with hemoglobin A1c goal of less than 8.0% ([facility]) - diet controlled at present - HEMOGLOBIN A1C; Future; Expected date: 12/04/2024 Chronic kidney disease, stage 4 (severe) ([facility]) - follows with nephrology. 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 Will get her back in to see Dr. Clancy. - ADULT/PEDS UROLOGY REFERRAL OP Urinary incontinence, unspecified type - she reports being unable to control her urine. She wears depends but still leaks through and is requesting washable bed pads and disposable linda pads. Order signed. - DURABLE MEDICAL EQUIPMENT Other orders - Nystatin [id number] UNIT/GM External Cream; Apply topically to affected area 2 times a day. To affacted area for two weeks. Follow Up: Return for as scheduled. | For: as scheduled | Check-out note: Labs today I spent a total of 40-54 minutes (exact time 41 mins) minutes on the date of service in preparation, delivery, and documentation of the care provided to Elise Nesbitt excluding any time spent in performance of separately billed services. Lo Chand DO documented in this encounter Nursing Notes * Lilli Stanley CMA - 12/04/2024 1:03 PM EST She is here for a follow up from discharge. She was in [facility]. She had a kidney infection. documented in this encounter Plan of Treatment Upcoming Encounters Date Type Department Care Team (Late st Contact Info) Description 01/23/2025 10:30 AM EDT Office Visit Family Medicine [address] [place] [phone] Lo Chand DO [address] [place] [address] [place] [address] 02/25/2025 2:00 PM EDT Office Visit Nephrology [address] [place] [id number] Maribel Orta PA-C [address] [place] [address] 05/14/2025 10:30 AM EDT Office Visit Cardiology [address] [place] [address] Francisco Javier Mancilla PA-C [address] [place] [address] Pending Results Name Type Priority Associated Diagnoses [...] Chronic kidney disease, stage 4 (severe) (HCC) 12/04/2024 1:58 PM EST HEMOGLOBIN A1C Lab Routine Type 2 diabetes mellitus with hemoglobin A1c goal of less than 8.0% (HCC) 12/04/2024 1:58 PM EST CBC WITH WBC DIFFERENTIAL AND ANEMIA REFLEX WORKUP Lab Routine Chronic kidney disease, stage 4 (severe) (HCC) 12/04/2024 1:58 PM EST Scheduled Orders Name Type Priority Associated Diagnoses Orde r Schedule LIPID PANEL WITH DIRECT LDL IF TG IS HIGH Lab Routine Hyperlipidemia with target LDL less than 70 Expected: 12/04/2024, Expires: 12/04/2025 COMPREHENSIVE METABOLIC PANEL Lab Routine Chronic kidney disease, stage 4 (severe) (HCC) Hyperlipidemia with target LDL less than 70 Expected: 12/04/2024 (Approximate), Expires: 12/04/2025 PHOSPHORUS Lab Routine Chronic kidney disease, stage 4 (severe) (HCC) Expected: 12/04/2024 (Approximate), Expires: 12/04/2025 HEMOGLOBIN A1C Lab Routine Type 2 diabetes mellitus with hemoglobin A1c goal of less than 8.0% (HCC) Expected: 12/04/2024 (Approximate), Expires: 12/04/2025 CBC WITH WBC DIFFERENTIAL AND ANEMIA REFLEX WORKUP Lab Routine Chronic kidney disease, stage 4 (severe) (HCC) Expected: 12/04/2024 (Approximate), Expires: 12/04/2025 ALBUMIN / CREATININE RATIO, URINE Lab Routine Chronic kidney disease, stage 4 (severe) (HCC) Expected: 12/04/2024 (Approximate), Expires: 12/04/2025 Scheduled Referrals Name Type Priority Associated Diagnoses Orde r Schedule PAIN MEDICINE REFERRAL OP Referral Within 30 days (routine) Other chronic pain Ordered: 12/04/2024 ADULT/PEDS UROLOGY REFERRAL OP Referral Within 10 days (routine) Obstruction of nephrostomy tube (HCC) History of kidney stones Ordered: 12/04/2024 Health Maintenance Due Date Last Done Comments [...] 05/07/2022, Additional history exists Mammogram 11/24/2024 11/24/2023, 12/09, 06/14/2019, Additional history exists Hgb 01/11/2025 12/04/2024, 04/0 01/2024, 11/11/2023, Additional history exists Nephrology Referral 11/26/2025 11/26/2024 O2 ASSESSMENT COMPLETED IN PAST YEAR FOR COPD 12/04/2025 12/04/2024 Lipid Panel 11/11/2028 11/11/2023, 12/2022, 08/21/2021, Additional history exists RETIRED - [...] as of this encounter Visit Diagnoses Diagnosis Hospital discharge follow-up- Primary Other follow-up examination Nausea without vomiting Type 2 diabetes mellitus with hemoglobin A1c goal of less than 8.0% (HCC) Chronic kidney disease, stage 4 (severe) (HCC) HTN, goal below 140/90 Unspecified essential hypertension Hyperlipidemia with target LDL less than 70 Other and unspecified hyperlipidemia senior care 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
--- OUTSIDE RECORDS SUMMARY | 2025-02-12 17:59 | External Medical Summary ---
Author Name Unknown Address Unknown Organization K01:[facility] - [address] [place] [address] Laboratory Report Ordering Provider Test Date Status SHANNON CHAMPAGNE 12/04/2024 13:58:15 Final Observation Date Value Abnormality Reference (Units ) Status Iron 12/04/2024 13:58:15 41 33-151 (ug/dL) Final Iron-binding capacity 12/04/2024 13:58:15 304 250-425 (ug/dL) Final Transferrin Sat % 12/04/2024 13:58:15 13 Below low normal 15-55 (%) Final Performing Location [facility] - [address] [place] [address]
--- OUTSIDE RECORDS SUMMARY | 2025-02-12 17:59 | External Medical Summary | Summary of Care ---
Author Name Unknown Organization [facility] Address [address] [place] [address] Phone [phone] Care Team Providers Care Acquisition Associate Name Role Phone Lo Chand DO Primary Care Provider Reason for Visit * Reason Onset Date Comments Other 12/06/2024 Encounter Details Date Type Department Care Team ([facility] st Contact Info) Description 12/06/2024 Telephone [address] [place] [address] Services, Scheduling [address] [place] [address] Other Allergies Active Allergy Reactions Criticality Noted [...] Use as needed with activity 01/20/20 Active OneToEventSorbet Verio In Vitro Strip (Glucose Blood)Indications: Type [...] bedtime. 10 days . 11/25/19 Active Nystatin 374724 UNIT/GM External Cream Apply topically to affected [...] (Prevnar) 06/05/2019 Pneumococcal Conjugate Vacci ne, 20-valent ([id number]) 11/11/2023 Pneumococcal Polysaccharide PPV23 (Pneumovax) 06/08/2016,03/01/2011 Season [...] Please give the pt a call at [phone] Thank you documented in this encounter Plan of Treatment Upcoming Encounters Date Type Department Care Team (Late st Contact Info) Description 01/23/2025 10:30 AM EDT Office Visit Family Medicine [address] [place] [phone] [address] [place] [address] 02/25/2025 2:00 PM EDT Office Visit Nephrology [address] [place] [address] ZeMaribel molina PA-C [address] [place] [address] 05/14/2025 10:30 AM EDT Office Visit Cardiology [address] [place] [address] Francisco Javier Mancilla PA-C [address] [place] [address] Health Maintenance Due Date Last Done Comments [...] Nesbitt Spouse Health Care Agent Care Teams Acquisition Associate Relationship Specialty Start Date End Date Lo Chand DO [address] [place] [address] [place] [phone] PCP - General Internal Medicine 07/29/20 documented as of this encounter
--- OUTSIDE RECORDS SUMMARY | 2025-02-12 17:59 | External Medical Summary ---
Author Name Unknown Address Unknown Organization K01:[facility] - [address] [facility] [address] Laboratory Report Ordering Provider Test Date Status SHANNON CHAMPAGNE 12/04/2024 13:58:15 Final Observation Date Value Abnormality Reference (Units ) Status Triglyceride 12/04/2024 13:58:15 169 <=174 ( mg/dL) Final Triglyceride Reference Range s (mg/dL):
<150 Acceptable
150-174 Borderline high
175-499 High
>=500 Very high Cholesterol 12/04/2024 13:58:15 178 <200 (mg /dL) Final Total Cholesterol Reference Ranges (mg/dL):
<200 Desirable
200-239 Borderline high
>=240 High HDL 12/04/2024 13:58:15 44 Below low normal >49 (mg/dL) Final HDL Cholesterol Reference Ra nges (mg/dL):
>=60 High (Desirable)
<50 Low (Undesirable) For Females
<40 Low (Undesirable) For Males NON-HDL CHOLESTEROL 12/04/2024 13:58:15 134 <=159 (mg/dL) Final Non-HDL Cholesterol Referenc e Range (mg/dL):
<100 Target level for high risk ASCVD patient
<130 Optimal for general population
130-159 Near optimal for general population
160-189 Borderline High
190-219 High
>=220 Very High LDL, (calculated) 12/04/2024 13:58:15 100 <= 129 (mg/dL) Final LDL Cholesterol Reference Ra nges (mg/dL):
<70 Target level for high risk ASCVD patient
<100 Optimal for general population
100-129 Near optimal for general population
130-159 Borderline high
160-189 High
>=190 Very high Performing [place] [facility] [place] [address] [facility] [address]
--- OUTSIDE RECORDS SUMMARY | 2025-02-12 18:00 | External Medical Summary | Summary of Care ---
Author Name Unknown Organization [facility] Address [address] [place] [address] Phone [phone] Care Team Providers Care Upholsterer Helper Name Role Phone Lo Chand DO Primary Care Provider Encounter Details Date Type Department Care Team ([facility] st Contact Info) Description 11/23/2024 Population Health External Data Unspecified Department Allergies Active Allergy Reactions Criticality Noted Date [...] as of this encounter (statuses as of 11/23/2024) Medications Acetaminophen ER 650 MG Oral Tablet [...] disease, without long-term current use of insulin ([facility]) Test once daily Dx E11.9 100 Strip 01/05/20 Active Ventolin HFA 108 (90 Base) MCG/ACT Inhalation Aerosol SolutionIndication s:COPD, group D, by GOLD 2017 classification ([facility]) Inhale by mouth 2 Puffs every 4 hours as needed for Cough or Shortness of Breath. 18 g 03/03/20 Active Additional Information Patient not taking.Reported on 10/30/2024 Riboflavin 400 MG Oral Tablet TAKE ONE TABLET IN THE MORNING 90 Tablet 1 10/18/19 Active Ferrous Gluconate 324 (37.5 Fe) MG Oral Tablet Take 1 Tablet by mouth daily with breakfast. 11/10/19 Active Folic Acid 1 MG Oral Tablet Take 1 Tablet by mouth in the morning. 11/10/19 23 Active Advanced Probiotic 10 Oral Capsule 625 mg. 11/09/19 Active Cyanocobalamin 100 MCG Oral Tablet Take 1 Tablet by mouth in the morning. 90 Tablet 1 12/23/19 Active Additional Information Patient not taking.Reported on 10/30/2024 Ondansetron 4 MG Oral Tablet Disintegrating (Zofran)Indication s:Nausea without vomiting,Nausea and vomiting, unspecified vomiting type Place 1 Tablet on tongue every 8 hours as needed for Nausea or Vomiting. dissolve on tongue. 90 Tablet 1 04/05/20 23 Active Loperamide HCl 2 MG Oral Capsule (Imodium) Take 1 Capsule by mouth 4 times a day as needed for Diarrhea. Active Incontinence Supplies Disposable briefs size XL. Use as directed for urinary incontinence. 100 Each 10/07/20 Active Incontinence Supplies Poise pads. Use as directed for urinary incontinence. 100 Each 10/07/20 23 Active Nystatin 699322 UNIT/GM External Cream Apply topically to affected area 2 times a day. To affacted area for two weeks. 60 g 2 12/23/19 24 Active Tamsulosin HCl 0.4 MG Oral Capsule [...] UT) 90 Capsule 3 04/10/20 24 Active Midodrine HCl 5 MG Oral Tablet (Proamatine) Take 1 Tablet by mouth in the morning and 1 Tablet at noon and 1 Tablet before bedtime. 270 Tablet 2 04/10/20 24 Active oxyBUTYnin Chloride 5 MG Oral Tablet (Ditropan) Take 1 Tablet by mouth in the morning. In the morning.. 90 Tablet 2 04/10/20 24 Active MAGnesium-Oxide 400 (240 Mg) MG Oral Tablet (Magnesium Oxide -Mg Supplement) TAKE ONE TABLET BY MOUTH EVERY DAY 28 Tablet 11 07/05/20 24 Active Metoprolol Succinate ER 25 MG Oral Tablet Extended Release 24 Hour (toPROL XL) TAKE ONE TABLET TWICE DAILY 64 Tablet 11 07/05/20 24 Active Pantoprazole Sodium 40 MG Oral Tablet Delayed Release (Protonix)Indicati ons:Gastroesophage al reflux disease with esophagitis without hemorrhage Take 1 Tablet by mouth in the morning and 1 Tablet before bedtime. 56 Tablet 11 07/05/20 24 Active OXcarbazepine 300 MG Oral Tablet (Trileptal)Indicat [...] DIRECTED FOR tube flushing 10/11/19 25 Active documented as of this encounter (statuses as of 11/23/2024) Active Problems Problem Noted Date Diagnosed Date Stress incontinence 02/07/2024 Bipolar disorder, currently in [...] colon cancer 01/27/2011 Rosacea 10/12/2002 Reflux esophagitis HTN, goal below 140/90 documented as of this encounter (statuses as of 11/23/2024) Resolved Problems Problem Noted Date Diagnosed Date [...] whether generalized or localized, lower leg 02/08 Bipolar disorder 04/05/2023 documented as of this encounter (statuses as of 11/23/2024) Immunizations Name Administration Dates Next Due Pneumococcal Conjugate Vacc, 13 Valent (Prevnar) 06/05/2019 Pneumococcal Conjugate Vacci ne, 20-valent ([id number]) 11/11/2023 Pneumococcal Polysaccharide PPV23 (Pneumovax) 06/08/2016,03/01/2011 Season [...] Care Team (Late st Contact Info) Description 11/26/2024 2:40 PM EST Office Visit Nephrology [address] [place] [address] [facility]onda Niño [facility] [address] [facility] [address] 01/23/2025 10:30 AM EDT Office Visit Family Medicine [address] [place] [phone] [address] [place] [address] 05/14/2025 10:30 AM EDT Office Visit Cardiology [address] [place] [address] Francisco Javier Mancilla PA-C [address] [place] [address] Health Maintenance Due Date Last Done Comments [...] 11/2023, 04/27/2023, Additional history exists Nephrology Referral 01/11/2025 01/12/2024 O2 ASSESSMENT COMPLETED IN PAST YEAR FOR COPD 01/11/2025 01/12/2024 Lipid Panel 11/11/2028 11/11/2023, 03/0 12/2022, 08/21/2021, [...] Delicia Spouse Health Care Agent Care Teams Upholsterer Helper Relationship Specialty Start Date End Date Lo Chand DO [address] [place] [address] [place] [address] PCP - General Internal Medicine 07/29/20 documented as of this encounter
--- OUTSIDE RECORDS SUMMARY | 2025-02-12 18:00 | External Medical Summary | Summary of Care ---
Author Name Unknown Organization [facility] Address [address] [place] [address] Phone [phone] Care Team Providers Care Counselor At Law Name Role Phone Lo Chand DO Primary Care Provider Reason for Visit * Reason Onset Date Comments Medication Refill 11/23/2024 Encounter Details Date Type Department Care Team (Late st Contact Info) Description 11/23/2024 Refill Family Medicine [address] [place] [phone] Lo Chand DO [address] [place] [address] [place] [address] Allergies Active Allergy Reactions Criticality Noted Date [...] E11.9 100 Strip 5 01/05/20 22 Active Ventolin HFA 108 (90 Base) MCG/ACT [...] MORNING 90 Tablet 1 10/18/19 23 Active Ferrous Gluconate 324 (37.5 Fe) MG Oral Tablet Take 1 Tablet by mouth daily with breakfast. 11/10/19 23 Active Folic Acid 1 MG Oral Tablet Take 1 Tablet by mouth in the morning. 11/10/19 23 Active Advanced Probiotic 10 Oral Capsule 625 mg. 11/09/19 23 Active Cyanocobalamin 100 MCG Oral Tablet [...] incontinence. 100 Each 5 10/07/20 23 Active Nystatin 533355 UNIT/GM External Cream Apply topically to affected [...] (Prevnar) 06/05/2019 Pneumococcal Conjugate Vacci ne, 20-valent ([id number]) 11/11/2023 Pneumococcal Polysaccharide PPV23 (Pneumovax) 06/08/2016,03/01/2011 Season [...] Assessment Author No 12/06/2021 10:37 PM EST Sheela brito, Yovani Rodriguez, RN * Are you blind or do [...] encounter Miscellaneous Notes * Telephone Encounter - Lo Chand DO - 11/23/2024 2:59 PM EST Pt current admitted at [facility] with renal problems. Will await discharge records to see if she is to continue this medication. * Telephone Encounter - Lilli Stanley CMA - 11/23/2024 2:10 PM ESTPending Prescriptions: Disp Refills Tamsulosin HCl 0.4 MG Oral Capsule (Flomax) Sig: Take 1 Capsule by mouth in the morning. * Telephone Encounter - Karoline Scott CALI - 11/23/2024 12:01 PM EST Did you pend patient's preferred pharmacy and medication before forwarding?yes [facility], [address] [place] Pending Prescriptions: Disp Refills Tamsulosin HCl 0.4 MG Oral Capsule (Floma* Sig: Take 1 Capsule by mouth in the morning. Last Visit: 11/11/2023 (in office), 12/03/2022 (telemedicine) Next Visit: 01/23/2025 If no future appointments scheduled, and last appointment is greater than a year ago, please schedule patient for a follow-up appointment Last date the medication was ordered: 12.23.23 Is this request for a controlled substance?No Urine Drug Screen: Results for orders placed or performed during the hospital encounter of 09/17/20 TOX SCREEN, URINE, W/ CONFIRMATION Result Value Amphetamine NEGATIVE Benzodiazepines NEGATIVE THC-COOH Confirmation, U NEGATIVE Cocaine Metabolite NEGATIVE HYDROCODONE POSITIVE (A) Morphine / Codeine NEGATIVE METHADONE METABOLITE NEGATIVE OXYCODONE NEGATIVE TOX COMMENT THE ABOVE SCREENING RESULTS [...] Labs: Lab Results Component Value Date/Time CREAT 2.6 (H) 01/12/2024 03:58 PM CREAT 1.93 (A) 12/24/2022 12:00 AM CREAT 1.1 (H) 09/25/2020 03:56 AM POTASSIUM 4.2 01/12/2024 03:58 PM POTASSIUM 4.2 12/24/2022 12:00 AM POTASSIUM 3.5 09/25/2020 03:56 AM TSH 1.80 12/10/2022 12:15 PM TSH 0.916 10/30/2020 12:00 AM TSH 1.74 08/15/2019 09:10 AM LDL 72 11/11/2023 12:10 PM LDL 107 04/07/2020 11:04 AM LDL NOT APPLICABLE 04/07/2020 11:04 AM ALT 10 01/12/2024 03:58 PM ALT 29 04/07/2020 11:04 AM HGBA1C 5.6 11/11/2023 12:10 PM HGBA1C 5.6 09/18/2020 06:08 AM documented in this encounter Plan of Treatment Upcoming Encounters Date Type Department Care Team (Late st Contact Info) Description 11/26/2024 2:40 PM EST Office Visit Nephrology [address] [place] [address] Ronda Niño MD [address] [place] [address] 01/23/2025 10:30 AM EDT Office Visit Family Medicine [address] [place] [phone] [address] [place] [address] 05/14/2025 10:30 AM EDT Office Visit Cardiology [address] [place] [address] Francisco Javier Mancilla PALizette [address] [place] [address] Health Maintenance Due Date Last Done Comments [...] 12/09, 06/14/2019, Additional history exists Hgb 01/11/2025 01/12/2024, [...] Nesbitt Spouse Health Care Agent Care Teams Counselor At Law Relationship Specialty Start Date End Date Lo Chand DO [address] [place] [address] [place] [address] PCP - General Internal Medicine 07/29/20 documented as of this encounter
--- OUTSIDE RECORDS SUMMARY | 2025-02-12 18:00 | External Medical Summary | Summary of Care ---
Author Name Unknown Organization [facility] Address [address] [place] [address] Phone [phone] Care Team Providers Care Synchronous Motor Assembler Name Role Phone Lo Chand DO Primary Care Provider Reason for Visit * Reason Onset Date Comments Advice 11/21/2024 Encounter Details Date Type Department Care Team ([facility] st Contact Info) Description 11/21/2024 Telephone Family Medicine [address] [phone] Lo Chand DO [address] [place] [address] [place] [phone] Advice Allergies Active Allergy Reactions Criticality Noted [...] as of this encounter (statuses as of 11/22/2024) Medications Acetaminophen ER 650 MG Oral Tablet [...] long-term current use of insulin ([facility]) Test once daily Dx E11.9 100 Strip 5 01/05/20 Active Ventolin HFA 108 (90 Base) MCG/ACT Inhalation Aerosol SolutionIndication s:COPD, group D, by GOLD 2017 classification ([facility]) Inhale by mouth 2 Puffs every 4 [...] 100 Each 5 10/07/20 23 Active Nystatin 334561 UNIT/GM External Cream Apply topically to affected [...] MOUTH IN THE MORNING Strength: 50 MCG (1999 UT) 90 Capsule 3 04/10/20 24 Active [...] as of this encounter (statuses as of 11/22/2024) Active Problems Problem Noted Date Diagnosed Date [...] as of this encounter (statuses as of 11/22/2024) Resolved Problems Problem Noted Date Diagnosed Date [...] as of this encounter (statuses as of 11/22/2024) Immunizations Name Administration Dates Next Due Pneumococcal Conjugate Vacc, 13 Valent (Prevnar) 06/05/2019 Pneumococcal Conjugate Vacci ne, 20-valent ([id number]) 11/11/2023 Pneumococcal Polysaccharide PPV23 (Pneumovax) 06/08/2016,03/01/2011 Season [...] No 10/30/2024 Does the household have a [facility] source of income? (Household - for ages [...] encounter Miscellaneous Notes * Telephone Encounter - Kanchna Barros OSA - 11/22/2024 10:46 AM EST I left message on patient's VM to call me (RE: Scheduling HD appt). * Telephone Encounter - Aurelio Lopes LPN - 11/21/2024 11:21 AM EST Admission/Start of Care Admission/Start of Care: Joselyn, business services manager , Calling from: [facility] Patient was Admitted to: [facility] , for: pyelonephritis from 11/19 to present, tentative discharge of11/22 Referral ordered by: Trisha Referral received for: SN, PT and social human services assistants Planned start of care date: within 48 hours of discharge Start of care completed on: to be done within 48 hours of discharge. Narrative: Joselyn calling from [facility]. Asking for start of care orders. No follow up appt. Unable to give verbal permission until hospital discharge appt made. Joselyn aware. Please call her afterappt. Made. Next Nursing visit(s) on within 48 hours of discharge They will call with any updates or additional concerns from the upcoming HH visit. Last Office Visit: 11/11/2023 Has patient been scheduled or seen in the office for a follow up visit: Needs contacted to schedulefollow up . Attempted to call patients home number. Left message to return call. Called Cell phone received error message. Called spouse's mobile number, rings twice and hangs up. Called daughters cell phone, rings twice and hangs up. Advised that orders will be signed by Dr. Chand and to fax to the office for signature. Call back Joselyn with advice or orders at [phone] Please fax orders to [phone] * Telephone Encounter - Delfina Oviedo OSA - 11/21/2024 11:19 AM EST Reason for patient's call: home health looking to speak with a nurse in regards to orders. Caller was transferred to aurelio at the nurse line. documented in this encounter Plan of Treatment Upcoming Encounters Date Type Department Care Team (Late st Contact Info) Description 11/26/2024 2:40 PM EST Office Visit Nephrology [address] [place] [address] Ronda Niño MD [address] [place] [address] [place] [address] 01/23/2025 10:30 AM EDT Office Visit Family Medicine [address] [place] [phone] [address] [place] [address] 05/14/2025 10:30 AM EDT Office Visit Cardiology [address] [place] [address] Francisco Javier Mancilla PA-C [address] [place] [address] Health Maintenance Due Date Last Done Comments [...] 06/14/2019, Additional history exists Hgb 01/11/2025 01/12/2024, 11/2023, 04/27/2023, Additional history exists Nephrology Referral 01/11/2025 01/12/2024 O2 ASSESSMENT COMPLETED IN PAST YEAR FOR COPD 01/11/2025 01/12/2024 Lipid Panel 11/11/2028 11/11/2023, 12/2022, 08/21/2021, Additional [...] Rubinmariel Spouse Health Care Agent Care Teams Synchronous Motor Assembler Relationship Specialty Start Date End Date Lo Chand DO [address] [place] [address] [place] [phone] PCP - General Internal Medicine 07/29/20 documented as of this encounter
--- OUTSIDE RECORDS SUMMARY | 2025-02-12 18:00 | External Medical Summary | Continuity of Care Document ---
Author Name Unknown Organization [facility] Address [address] [place] [id number] Care Team Providers Care Credit Collections Specialist Name Role Phone Mannie Lo Gómez Primary Care Physician [phone] Encounter [facility] [id number] Date(s): 11/19/24 - 11/25/[address] [phone] Encounter Diagnosis Pyelonephritis(Discharge Diagnosis) - 11/19/24 Sepsis(Discharge Diagnosis) - 11/21/24 Acute kidney injury superimposed on CKD(Discharge Diagnosis) - 11/21/24 High anion gap metabolic acidosis(Discharge Diagnosis) - 11/21/24 Hypotension(Discharge Diagnosis) - 11/21/24 Adverse effect of penicillin(Discharge Diagnosis) - 11/21/24 Discharge Disposition: Home or Self Care Attending Physician: MD Bipin, [facility] Admitting Physician: DO Sotomayor Meghan Anne Referring Physician: MD Tutu, Kyler Vivas Encounter Type: Inpatient Allergies, Adverse Reactions, Alerts Substance Criticality Severity Reaction Reaction Severity Status meperidine Unknown Active HYDROmorphone Hydrochloride ER Confusion Hallucinations Active aspirin Unknown Active Allergy Not found in Search Amoxicillin - Reaction Unknown Salicylates - Reaction Unknown Clavulanic Acid - Reaction Unknown Active morphine Itchy Anaphylaxis Active IVP dye Throat Closes Active fentaNYL Itchy skin arou nd patch Active traMADol Unknown Active Functional Status 11/25/24 Neurological Symptoms Weakness ADLs Moderate assistance Facial Symmetry Symmetric Gait Unable to assess Swallowing Difficulty None Level of Consciousness Neuro Alert History of Fall in Last 3 Months Bajwa N o Presence of Secondary Diagnosis Bajwa Ye s Use of Ambulatory Aid Bajwa Crutches/can e/walker IV/Heparin Lock Fall Risk Bajwa Yes Gait/Transferring Fall Risk Bajwa Weak Mental Status Fall Risk Bajwa Oriented t o own ability Bajwa Fall Risk Score 60 Bajwa Fall Risk High risk Speech Pattern Clear 11/24/24 Hallucinations Present None Medications atorvastatin 40 mg oral tablet Start: 01/27/24 10:42:00 AM EDT, 1 tab, PO, Daily Start Date: 01/27/24 Status: Ordered Repeat number: 1 Augmentin 875 mg-125 mg oral tablet Start: 11/25/24 8:36:00 AM EST, amoxicillin 1 tab, PO, q12h, Disp# 20, Please take one pill twice a day until 12/04, Pharmacy: [facility] Start Date: 11/25/24 Stop Date: 12/05/24 Status: Ordered Quantity: 20.0 Unit: tab Repeat number: 1 hydrOXYzine hydrochloride 25 mg oral tablet Start: 01/27/24 10:30:00 AM EDT, 1 tab, PO, Daily, at Bedtime Start Date: 01/27/24 Status: Ordered Repeat number: 1 magnesium oxide 400 mg (241.3 mg elemental magnesium) oral tablet Start: 01/27/24 10:31:00 AM EDT, 1 tab, PO, Daily Start Date: 01/27/24 Status: Ordered Repeat number: 1 Metamucil Start: 11/25/24 8:36:00 AM EST, 1 packet, PO, tid Start Date: 11/25/24 Status: Ordered Repeat number: 1 midodrine 5 mg oral tablet Start: 01/27/24 10:35:00 AM EDT, 1 tab, PO, tid Start Date: 01/27/24 Status: Ordered Repeat number: 1 Normal Saline Flush 0.9% injectable solution Start: 11/25/24 9:47:00 AM EST, See Instructions, Disp# 150 mL, Flush your tube with 10cc at a time,Note to Pharmacy: send 15 syringes of 10cc each please, Pharmacy: [facility] Start Date: 11/25/24 Status: Ordered Quantity: 150.0 Unit: mL Repeat number: 1 OXcarbazepine 300 mg oral tablet Start: 01/27/24 10:36:00 AM EDT, 1 tab, PO, bid Start Date: 01/27/24 Status: Ordered Repeat number: 1 oxyBUTYnin 5 mg oral tablet Start: 01/27/24 10:36:00 AM EDT, 1 tab, PO, Daily Start Date: 01/27/24 Status: Ordered Repeat number: 1 pantoprazole 40 mg oral delayed release tablet Start: 01/27/24 10:38:00 AM EDT, 1 tab, PO, bid, Start Date: 01/27/24 Status: Ordered Repeat number: 1 riboflavin 400 mg oral tablet Start: 01/27/24 10:39:00 AM EDT, 1 tab, PO, Daily Start Date: 01/27/24 Status: Ordered Repeat number: 1 tamsulosin 0.4 mg oral capsule Start: 01/27/24 10:40:00 AM EDT, 1 cap, PO, Daily Start Date: 01/27/24 Status: Ordered Repeat number: 1 Vitamin D3 Start: 01/27/24 10:41:00 AM EDT, See Instructions, 2,000mg, daily in AM Start Date: 01/27/24 Status: Ordered Repeat number: 1 Mental Status 11/19/24 Communication Barrier Present No Primary Language Czech Problem List Condition Confirmation Course Effective Dates Status H ealth Status Informant Anxiety Confirmed Active CKD stage 3 secondary to diabetes Confirmed Active Chronic obstructive lung disease Confirmed Active Depression Confirmed Active Diabetes mellitus Confirmed Active Chronic GERD Confirmed Active Hyperlipidemia Confirmed Active Hypertension Confirmed Active Colon cancer Confirmed Active CALI (obstructive sleep apnea) Confirmed Active Takotsubo syndrome Confirmed Active Diagnosis Diagnosis Type Effective Dates Health Status Clinical Service Informant Pyelonephritis Discharge Diagnosis 11/19/24 Non-Specified Sepsis Discharge Diagnosis 11/21/24 Non-Specified Acute kidney injury superimposed on CKD Discharge Diagnosis 11/21/24 Non-Specified High anion gap metabolic acidosis Discharge Diagnosis 11/21/24 Non-Specified Hypotension Discharge Diagnosis 11/21/24 Non-Specified Adverse effect of penicillin Discharge Diagnosis 11/21/24 Non-Specified Results Laboratory List Name Date Glucose Meter (GLUCOSE METER) 11/25/24 Complete Blood Count w Differential (CBC w Platelets and Diff) 11/25/24 Nephrology Panel 11/25/24 Glucose Meter (GLUCOSE METER) 11/25/24 Glucose Meter (GLUCOSE METER) 11/24/24 Complete Blood Count w Differential (CBC w Platelets and Diff) 11/24/24 Nephrology Panel 11/24/24 Added on Lab order 11/23/24 Complete Blood Count w Differential (CBC w Platelets and Diff) 11/23/24 Nephrology Panel 11/23/24 Vancomycin Level 11/22/24 pH, Urine 11/22/24 Added on Lab order 11/21/24 Vancomycin, Trough Level (VANCOMYCIN, TR OUGH) 11/21/24 Betahydroxybutyrate (Ketone, bld) 5 Lactic Acid Level 11/21/24 Venous Blood Gases (VBG Venous Blood Gas ) 11/21/24 Lactic Acid Level 11/20/24 Fluid on Hold in Laboratory (EXTRA FLUID ) 11/19/24 Specimen Type (SPECIMEN TYPE) 11/19/24 Added on Lab order 11/19/24 Lactic Acid Level 11/19/24 Urine Analysis w/ Reflexed Microscopic. (Urinalysis w/ Reflexed Microscopic.) 11/19/24 Blood Type (ABO/Rh) (ABO/RH) 11/19/24 Blood Type/Antibody Screen ( for possible transfusion) (Type and Screen (for possible transfusion)) 11/19/24 Comprehensive Metabolic Panel (CMP) 11/19 Prothrombin Time w/ INR (PT/INR) 11/19/24 Most recent to oldest [Reference Range]: 1 2 3 ABO/Rh O POSITIVE (11/19/24 10:00 PM) O POSITIVE (11/19/24 9:27 PM) Antibody Scr NEGATIVE (11/19/24 9:27 PM) Expires at 0600AM on 11/22/2024 (11/19/24 9:27 PM) # Units 0 (11/19/24 9:27 PM) R Number NRQ (11/19/24 9:27 PM) Fluid Container Specimen available f rom 0 to 3 days based on specimen stability. Please use addon order if you wish to order testing. (11/19/24 11:40 PM) eGFR CKD-EPI [>60 mL/min/1.73 m2] 33 mL/min/1.73 m2 *LOW* (11/25/24 8:40 AM) 31 mL/min/1.73 m2 *LOW* (11/24/24 7:53 AM) 28 mL/min/1.73 m2 *LOW* (11/23/24 4:04 AM) Request of Physician lactic acid level (11/23/24 4:04 AM) vancomycin trough (11/21/24 8:05 AM) urine na urine cr (11/19/24 11:24 PM) Action Taken Test NOT added becau se: 1 (11/23/24 4:04 AM) YES (11/21/24 8:05 AM) NO URINE CUP OR YELLOW TOP TUBE RECEIVED (11/19/24 11:24 PM) Estimated CrCl 26.85 mL/min (11/25/24 9:43 AM) 25.33 mL/min (11/24/24 9:14 AM) 23.22 mL/min (11/23/24 4:48 AM) MPV [9.0-12.2 fL] 10.5 fL (11/25/24 8:40 AM) 10.8 fL (11/24/24 7:53 AM) 11.1 fL (11/23/24 4:04 AM) Immature Gran% 3.9 % (11/25/24 8:40 AM) 3.7 % (11/24/24 7:53 AM) 1.8 % (11/23/24 4:04 AM) Neut% 72.1 % (11/25/24 8:40 AM) 71.7 % (11/24/24 7:53 AM) 73.8 % (11/23/24 4:04 AM) Lymph% 12.3 % (11/25/24 8:40 AM) 9.4 % (11/24/24 7:53 AM) 11.6 % (11/23/24 4:04 AM) Morton% 9.5 % (11/25/24 8:40 AM) 12.6 % (11/24/24 7:53 AM) 11.4 % (11/23/24 4:04 AM) Baso% 0.4 % (11/25/24 8:40 AM) 0.6 % (11/24/24 7:53 AM) 0.2 % (11/23/24 4:04 AM) Eos% 1.8 % (11/25/24 8:40 AM) 2.0 % (11/24/24 7:53 AM) 1.2 % (11/23/24 4:04 AM) Immat Gran, Abs [0-0.4 K/uL] 0.50 K/uL *HI* (11/25/24 8:40 AM) 0.40 K/uL (11/24/24 7:53 AM) 0.26 K/uL (11/23/24 4:04 AM) Neut, Abs [2.0-7.7 K/uL] 9.37 K/uL *HI* (11/25/24 8:40 AM) 7.71 K/uL *HI* (11/24/24 7:53 AM) 10.60 K/uL *HI* (11/23/24 4:04 AM) Lymph, Abs [1.0-3.4 K/uL] 1.60 K/uL (11/25/24 8:40 AM) 1.01 K/uL (11/24/24 7:53 AM) 1.67 K/uL (11/23/24 4:04 AM) Morton, Abs [0-1.0 K/uL] 1.23 K/uL *HI* (11/25/24 8:40 AM) 1.36 K/uL *HI* (11/24/24 7:53 AM) 1.63 K/uL *HI* (11/23/24 4:04 AM) Baso, Abs [0-0.1 K/uL] 0.05 K/uL (11/25/24 8:40 AM) 0.06 K/uL (11/24/24 7:53 AM) 0.03 K/uL (11/23/24 4:04 AM) Eos, Abs [0-0.5 K/uL] 0.23 K/uL (11/25/24 8:40 AM) 0.22 K/uL (11/24/24 7:53 AM) 0.17 K/uL (11/23/24 4:04 AM) Type of Diff: AUTO (11/25/24 8:40 AM) AUTO (11/24/24 7:53 AM) AUTO (11/23/24 4:04 AM) RDW [11.5-14.2 %] 13.3 % (11/25/24 8:40 AM) 13.7 % (11/24/24 7:53 AM) 13.7 % (11/23/24 4:04 AM) Base Defic(v) 12.6 mmol/L (11/21/24 8:05 AM) B Comments Second specimen for [facility] confirmation requested from: NURSE 11/19/24 AT 2143 (11/19/24 9:27 PM) Component RED CELLS (11/19/24 9:27 PM) Squamous Epithelial Cells (u) FEW (11/19/24 10:13 PM) Ketones, bld [0.02-0.27 mmol/L] 0.17 mmol/L (11/21/24 8:05 AM) Anion Gap [5-14 mmol/L] 14 mmol/L (11/25/24 8:40 AM) 12 mmol/L (11/24/24 7:53 AM) 15 mmol/L *HI* (11/23/24 4:04 AM) Alb [3.5-5.2 g/dL] 2.6 g/dL *LOW* (11/25/24 8:40 AM) 2.5 g/dL *LOW* (11/24/24 7:53 AM) 2.4 g/dL *LOW* (11/23/24 4:04 AM) Alk Phos [35-115 unit/L] 116 unit/L 2 *HI* (11/19/24 9:24 PM) ALT [0-33 unit/L] 14 unit/L (11/19/24 9:24 PM) AST [0-32 unit/L] 26 unit/L (11/19/24 9:24 PM) Bact (u) [NONE-NONE] FEW *Abnormal* (11/19/24 10:13 PM) Bili (u) [NEG] NEGATIVE (11/19/24 10:13 PM) BUN [6-23 mg/dL] 18 mg/dL (11/25/24 8:40 AM) 20 mg/dL (11/24/24 7:53 AM) 25 mg/dL *HI* (11/23/24 4:04 AM) Ca [8.4-10.2 mg/dL] 9.2 mg/dL (11/25/24 8:40 AM) 9.1 mg/dL (11/24/24 7:53 AM) 8.7 mg/dL (11/23/24 4:04 AM) Cl- [98-107 mmol/L] 104 mmol/L (11/25/24 8:40 AM) 106 mmol/L (11/24/24 7:53 AM) 105 mmol/L (11/23/24 4:04 AM) HCO3 [22-29 mmol/L] 21 mmol/L *LOW* (11/25/24 8:40 AM) 23 mmol/L (11/24/24 7:53 AM) 22 mmol/L (11/23/24 4:04 AM) Cret [0.60-1.00 mg/dL] 1.66 mg/dL *HI* (11/25/24 8:40 AM) 1.76 mg/dL *HI* (11/24/24 7:53 AM) 1.92 mg/dL *HI* (11/23/24 4:04 AM) Vanco tr 13.6 ug/mL 3 (11/21/24 8:05 AM) BF Source KIDNEY FLUID (11/19/24 11:40 PM) Glu [74-109 mg/dL] 109 mg/dL 4 (11/25/24 8:40 AM) 105 mg/dL 5 (11/24/24 7:53 AM) 99 mg/dL 6 (11/23/24 4:04 AM) Gluc Meter [74-109 mg/dL] 116 mg/dL *HI* (11/25/24 11:20 AM) 95 mg/dL (11/25/24 12:34 AM) 153 mg/dL *HI* (11/24/24 6:01 PM) Hct [35-44 %] 27.7 % *LOW* (11/25/24 8:40 AM) 28.7 % *LOW* (11/24/24 7:53 AM) 26.1 % *LOW* (11/23/24 4:04 AM) Hgb [11.7-15.0 g/dL] 8.4 g/dL *LOW* (11/25/24 8:40 AM) 8.8 g/dL *LOW* (11/24/24 7:53 AM) 8.2 g/dL *LOW* (11/23/24 4:04 AM) INR [0.9-1.1] 1.4 7 *HI* (11/19/24 9:24 PM) K [3.5-5.1 mmol/L] 3.5 mmol/L (11/25/24 8:40 AM) 3.1 mmol/L *LOW* (11/24/24 7:53 AM) 3.3 mmol/L *LOW* (11/23/24 4:04 AM) Ketones [NEG mg/dL] NEGATIVE mg/dL (11/19/24 10:13 PM) Lactate [0.5-2.2 mmol/L] 1.0 mmol/L (11/21/24 8:05 AM) 1.2 mmol/L (11/20/24 12:16 AM) 2.2 mmol/L (11/19/24 10:35 PM) Leuk Est [NEG] LARGE *Abnormal* (11/19/24 10:13 PM) MCH [28-33 pg] 30.2 pg (11/25/24 8:40 AM) 30.2 pg (11/24/24 7:53 AM) 30.4 pg (11/23/24 4:04 AM) MCHC [32-36 g/dL] 30.3 g/dL *LOW* (11/25/24 8:40 AM) 30.7 g/dL *LOW* (11/24/24 7:53 AM) 31.4 g/dL *LOW* (11/23/24 4:04 AM) MCV [81-96 fL] 99.6 fL *HI* (11/25/24 8:40 AM) 98.6 fL *HI* (11/24/24 7:53 AM) 96.7 fL *HI* (11/23/24 4:04 AM) Na [136-145 mmol/L] 139 mmol/L (11/25/24 8:40 AM) 141 mmol/L (11/24/24 7:53 AM) 142 mmol/L (11/23/24 4:04 AM) Nitrite (u) [NEG] NEGATIVE (11/19/24 10:13 PM) PO4 [2.5-4.5 mg/dL] 2.1 mg/dL *LOW* (11/25/24 8:40 AM) 2.2 mg/dL *LOW* (11/24/24 7:53 AM) 3.1 mg/dL (11/23/24 4:04 AM) Plts [150-350 K/uL] 376 K/uL *HI* (11/25/24 8:40 AM) 334 K/uL (11/24/24 7:53 AM) 271 K/uL (11/23/24 4:04 AM) PT [12.0-14.2 seconds] 16.4 seconds *HI* (11/19/24 9:24 PM) RBC [3.90-5.00 M/uL] 2.78 M/uL *LOW* (11/25/24 8:40 AM) 2.91 M/uL *LOW* (11/24/24 7:53 AM) 2.70 M/uL *LOW* (11/23/24 4:04 AM) T Bili [0.0-1.2 mg/dL] 0.5 mg/dL (11/19/24 9:24 PM) Prot [6.4-8.3 g/dL] 6.5 g/dL (11/19/24 9:24 PM) Appear (u) SLIGHTLY CLOUDY (11/19/24 10:13 PM) Color (u) YELLOW (11/19/24 10:13 PM) Glu (u) [NEG mg/dL] NEGATIVE mg/dL (11/19/24 10:13 PM) Hgb (u) [NEG] MODERATE *Abnormal* (11/19/24 10:13 PM) pH (u) [5.0-8.0 unit] 6.0 unit (11/22/24 12:05 AM) 6.0 unit (11/19/24 10:13 PM) Prot (u) [NEG mg/dL] 100 mg/dL *Abnormal* (11/19/24 10:13 PM) RBC (u) [0-4 /HPF] 10-19 /HPF (11/19/24 10:13 PM) Urobili [0.1-1.0 EU/dL] 0.1-1.0 EU/dL (11/19/24 10:13 PM) SG [1.005-1.030] 1.021 (11/19/24 10:13 PM) WBC (u) [0-4 /HPF] 50+ /HPF (11/19/24 10:13 PM) Temp(v) NOT PROVIDED C (11/21/24 8:05 AM) HCO3(v) [24-28 mmol/L] 14.5 mmol/L *LOW* (11/21/24 8:05 AM) Vanco 20.1 ug/mL 8 (11/22/24 4:44 PM) pCO2(v) [41-51 mmHg] 37.0 mmHg *LOW* (11/21/24 8:05 AM) pH(v) [7.33-7.43 unit] 7.200 unit *LOW* (11/21/24 8:05 AM) pO2(v) 29.0 mmHg (11/21/24 8:05 AM) WBC [4.0-10.4 K/uL] 12.98 K/uL *HI* (11/25/24 8:40 AM) 10.76 K/uL *HI* (11/24/24 7:53 AM) 14.36 K/uL *HI* (11/23/24 4:04 AM) 1Result Comment: NO SAMPLE RECEIVED 2Result Comment: Low levels of ALKP may indicate a deficiency in zinc, magnesium, or malnutritionbutcan also be an indicator of a rare genetic disease hypophosphatasia (HPP). 3Result Comment: Trough Level: Therapeutic Level: 10.0-15.0 ug/mL (but 15.0-20.0 ug/mL for some indications) Potentially Toxic Level: >20.0 ug/mL 4Result Comment: ADA recommendation for FASTING Serum/Plasma Glucose: Normal: 70-100 mg/dL Prediabetes: 100-125 mg/dL Diabetes: 126 mg/dL or higher 5Result Comment: ADA recommendation for FASTING Serum/Plasma Glucose: Normal: 70-100 mg/dL Prediabetes: 100-125 mg/dL Diabetes: 126 mg/dL or higher 6Result Comment: ADA recommendation for FASTING Serum/Plasma Glucose: Normal: 70-100 mg/dL Prediabetes: 100-125 mg/dL Diabetes: 126 mg/dL or higher 7Result Comment: Suggested therapeutic range for low-intensity Coumadin therapy for venous thromboembolism is INR 2.0-3.0 (ex: atrial fibrillation, history of TIA/stroke). For high risk patients, the suggested therapeutic range is INR 2.5-3.5 (ex: mechanical prosthetic valves). 8Result Comment: Trough Level: Therapeutic Level: 10.0-15.0 ug/mL (but 15.0-20.0 ug/mL for some indications) Potentially Toxic Level: >20.0 ug/mL Peak Level: Therapeutic Level: 20.0-40.0 ug/mL Potentially Toxic Level: >40.0 ug/mL Orders for Microbiology Reports Name Date Fluid Culture w Smear 11/19/24 Blood Culture (Aerobic AND Anaerobic) 08/03 Urine Culture (Culture, Urine) 11/19/24 Blood Culture (Aerobic AND Anaerobic) 08/03 Microbiology Reports TEST:Fluid.Cx STATUS:Auth (Verified) BODY SITE: SOURCE:Fluid COLLECTED DATE/TIME:11/19/24 11:38 PM Status FINAL 11/23/2024 ORGANISM:Escherichia coli Susceptibilty: Escherichia coli Tested Drug Broth ABBY Dilution Broth Interpr etation Trimeth-Sulfamethoxazole <=0.5/9.5 Suscept . Tetracycline >8 Resistant Levofloxacin <=0.5 Suscept. Gentamicin <=2 Suscept. Ciprofloxacin <=0.25 Suscept. Cefazolin <=2 Suscept. Ampicillin <=8 Suscept. TEST:Blood.Cx STATUS:Auth (Verified) BODY SITE: SOURCE:Blood COLLECTED DATE/TIME:11/19/24 10:13 PM Status FINAL 11/24/2024 TEST:Urine.Cx STATUS:Auth (Verified) BODY SITE: SOURCE:Urine COLLECTED DATE/TIME:11/19/24 10:13 PM Status FINAL 11/22/2024 ORGANISM:Enterococcus faecalis Susceptibilty: Enterococcus faecalis Tested Drug Broth ABBY Dilution Broth Interpr etation Vancomycin 1 Suscept. Tetracycline <=2 Suscept. Nitrofurantoin <=32 Suscept. Levofloxacin 2 Suscept. Daptomycin 2 Suscept. Ciprofloxacin <=1 Suscept. Ampicillin <=2 Suscept. TEST:Blood.Cx STATUS:Auth (Verified) BODY SITE: SOURCE:Blood COLLECTED DATE/TIME:11/19/24 10:08 PM Status FINAL 11/24/2024 Radiology Reports * Exam Date Time Procedure Performing Provider Status 11/19/24 11:34 PM IR Neph Tube Placement Stewart Ballard; Final Notes: (IR Neph Tube Placement) Reason For Exam: left hydronephrosis s/p neph tube expulsion, c/f pyelonephritis and sepsis IR Neph Tube Placement EXAMINATION: IR Neph Tube Placement CLINICAL HISTORY: left hydronephrosis s/p neph tube expulsion, c/f pyelonephritis and sepsis COMPARISON: None FINDINGS: IMPRESSION: PROCEDURES: HISTORY: 69-year-old female with a history of Unspecified hydronephrosis INDICATIONS: tube fell out, acute urosepsis PHYSICIANS: MD Rodrigue Chavez DO SUPERVISION: The Attending was physically present in the room and supervised the performance of the procedure. SEDATION: The risks and benefits of moderate sedation were discussed with the patient as part of the procedural informed consent process. Provider supervised intra- procedure moderate sedation was performed using a trained independent observer who monitored the patient's level of sedation and physiologic status throughout the procedure. Pre-procedure and post-procedure sedation assessments were performed inaccordance with institutional sedation policy and are documented separately in the medical record. Total Provider Sedation Supervision Time: 10 minutes. MEDICATIONS: Fentanyl 50 mcg Midazolam 1 mg Diphenhydramine 50 mg CONTRAST: Gadavist - 5 ml DOSIMETRY: Fluoroscopy Time: 1.20 min Cumulative Dose: 8 mGy MEASUREMENTS: None. IMPLANTED DEVICES: [employer]ek Multipurpose Drainage Catheter 10.2FR 25 cm (Reference # [id number] Lot [id number]) SPECIMENS: None. EST. BLOOD LOSS: None. COMPLICATIONS: None. SUPPORTING DOCUMENTATION: Pre-Procedure Verification (Physician/Provider) [X]: Patient Name and Verified Against Patient ID Band [X]: Written Consent Verified (Patient, Procedure, Site/Side) [ ]: Site Marking Verified (keep unchecked if not applicable) [X]: H \\T\\ P Completed (if required) Documented 11/19/2024 at 23:06:33 By Curtis Osborne MD Pre-Procedure Verification (Nurse/Technologist) [X]: Patient Name and Verified Against Patient ID Band [X]: Written Consent Verified (Patient, Procedure, Site/Side) [ ]: Site Marking Verified (keep unchecked if not applicable) [X]: H \\T\\ P Verified (if required) Documented 11/19/2024 at 23:06:33 By VIJAY Cabello Time Out [X]: Patient Identified by Name and [X]: Written Consent Verified (Patient,Procedure, Site/Side) [X]: Patient Positioned Correctly [X]: Patient Records Available (Order, Images) [X]: Anticipated Procedure Equipment / Devices Available [ ]: Site / Side Marking Completed (keep unchecked if not applicable) [X]: Preprocedure Medications Administered (Antibiotics,Premedications, or n/a) [X]: All team members are present and are in agreement with Time Out (not documented prior to 02/18/2018). Documented 11/19/2024 at 23:27:49 By VIJAY Cabello Procedure: Following informed consent and verification of the appropriate patient identification and procedure to be performed, the left flank was prepped and draped in the usual sterile fashion. After local anesthesia was achieved using 1% lidocaine, access was gained to the left posterior middle pole calyx using real-time ultrasound and a 21-gauge needle. Known a wire was placed, and AccuStick set was used to access the central calyx. A stiff glide was placed, over which a new 10 [place] nephrostomy tube was placed, looped within the left central renal calyx. This was secured to the skin using sutures and placed to gravity drainage. FINDINGS: Real-time ultrasound demonstrates severe left hydronephrosis. Antegrade pyelogram demonstrates severe left hydronephrosis. Final nephrostogram demonstrates good positioning of the tube within the left renal calyx. IMPRESSION: Successful left nephrostomy tube placement as detailed above. PLAN: To gravity drainage. Preventative maintenance change at 3 month intervals. If desired, futureopportunity to advance to nephroureteral drain may and allow for internal drainage and aid patient comfort. Workstation ID: [id number] Final Dictated by:MD Osborne Benjamin David Dictated DT/TM:11/27/2024 1:49 Signed by:MD Osborne Benjamin David Signed (Electronic Signature):11/27/2024 1:48 p * Exam Date Time Procedure Performing Provider Status 11/19/24 9:[address] Abdomen and Pelvis Consult Silvana Pimentel; Final Notes: (OO CT Abdomen and Pelvis Consult) Reason For Exam: c/f left kidney infx, s/p neph tube falling out OO CT Abdomen and Pelvis Consult EXAMINATION: OO CT Abdomen and Pelvis Consult CLINICAL HISTORY: c/f left kidney infx, s/p neph tube falling out Per chart review: CT concerning for left hydronephrosis in the setting of recent left neph tube dislodgement and expulsion. s/p L nephrostomy tube placement 11/19 by CVIR. COMPARISON: CT abdomen pelvis 11/15/2023. Fluoroscopic images 01/27/2024. FINDINGS: Lower chest: 0.3 cm right lower lobe pulmonary nodule, similar to CT 11/15/2023. 0.5 cm right lower lobe pulmonary nodule, similar to CT 11/15/2023. Left lower lobe calcified granuloma. Hiatus hernia. ABDOMEN Liver, Gallbladder \\T\\ bile ducts: Liver is unremarkable for technique. Cholecystectomy. No biliarydilation. Pancreas: Unremarkable Spleen: Unremarkable Adrenals: Unremarkable Kidneys, collecting system and ureters: Moderate left hydroureteronephrosis. Distal left ureteral stenosis (series 3 image 267). Left perirenal fatty stranding. Left urothelial thickening. Left percutaneous nephrostomy tube not visualized. Bilateral nephrolithiasis. Bilateral cortical scarring. Toosmall to characterize hypodensity within the right kidney. Left upper pole renal sinus cysts measuring 7.8 cm, previously 6.[address] 11/15 2023. No right hydronephrosis. Retroperitoneum, lymph nodes, and vessels: No retroperitoneal lymphadenopathy. Normal aortic caliber. Bowel \\T\\ Mesentery: Postsurgical changes within the colon. Nonobstructed bowel. Diverticulosis without diverticulitis. No mesenteric lymphadenopathy. PELVIS Bladder: Decompressed bladder. Reproductive organs: Absent uterus. Extraperitoneal, lymph nodes, vessels: No pelvic lymphadenopathy. Osseous and body wall: No acute abnormality. Multilevel degenerative changes of the visualized spine. IMPRESSION: 1. Moderate left hydroureteronephrosis. Urothelial thickening of the left renal collecting system, which can be seen in UTI. Please correlate with urinalysis. 2. Distal left ureteral stenosis. 3. Other chronic findings as above. [place] Act 112: This study does not meet the requirements of [place] Act 112. Dr. Nay Duran is the dictating resident. Finalized reports status indicates that the attending has reviewed the images and report, and agrees with the interpretation. Preliminary report status should be regarded as NOT interpreted by the attending radiologist. Workstation ID: [id number] Final Dictated by:DO Duran Aivy Dictated DT/TM:11/21/2024 5:33 Resident:Le, DO, Aivy Signed by:MD Broderick Margaret Signed (Electronic Signature):11/21/2024 5:32 p Vital Signs Most recent to oldest [Reference Range]: 1 2 3 Height 149.86 cm (11/19/24 8:22 PM) Patient Weight 78.5 kg (11/23/24 5:56 AM) 72.8 kg (11/22/24 5:49 AM) 72.3 kg (11/20/24 5:18 AM) Body Mass Index 32.19 kg/m2 (11/20/24 10:01 AM) 32.06 kg/m2 (11/19/24 8:22 PM) Temperature [36.5-37.9 DegC] 36.5 DegC (11/25/24 8:00 AM) 36.7 DegC (11/25/24 7:21 AM) 36.4 DegC *LOW* (11/25/24 4:00 AM) Heart Rate 77 bpm (11/25/24 10:36 AM) 80 bpm (11/25/24 8:00 AM) 73 bpm (11/25/24 7:21 AM) Respiratory Rate 18 br/min (11/25/24 10:36 AM) 18 br/min (11/25/24 8:00 AM) 16 br/min (11/25/24 7:21 AM) Blood Pressure 120/65mmHg (11/25/24 10:33 AM) 116/65mmHg (11/25/24 8:00 AM) 107/59mmHg (11/25/24 7:21 AM) Mean Blood Pressure 83 mmHg (11/25/24 10:33 AM) 81 mmHg (11/25/24 8:00 AM) 76 mmHg (11/25/24 7:21 AM) Cuff Pulse Pressure 51 mmHg (11/25/24 8:00 AM) 33 mmHg (11/25/24 4:00 AM) 59 mmHg (11/25/24 12:00 AM) BP Location # 1 Right Arm, Non-invasive (11/25/24 4:00 AM) Right Arm, Non-invasive (11/25/24 12:00 AM) Right Arm (11/23/24 11:43 PM) Social History Social History Type Response Smoking Status Never smoked cigaret shukri Sex Female Sex Representation Female (finding) Pre-OP H & P * MD [place], Lito Pandya: PERFORM Event Display: Pre-OP H & P Authored Date: [id number] PRE-OPERATIVE HISTORY AND PHYSICAL Name: ELISE NESBITT Patient Number: [id number] : 1955 Date of Service: 11/19/2024 Interventional Radiology Pre-procedure History and Physical Patient Name: ELISE NESBITT Date Of : 1955 Medical Record: [id number] Date of Service: 2024-11-19 Planned Procedure: IR NEPH TUBE PLACEMENT Reason For Consult: : Nephrostomy Placement Unilateral History of Present Illness: 68F with L kidney obstruction and recurrent stones/infections, PCN placed at [facility] 01/27/24. pus from tube and pain, fevers 3d ago, tube dislodged. req for new tube placement Past Medical and Surgical History: CALI, COPD, Renal cyst, TIA, Takotsobu cardiomyopathy, Bipolar, Recurrent UTI, CKD, stage III, DM, type 2, Recurrent falls, Morbid obesity, Colon ca, GERD, Anxiety, DVTs, HTN, NE, HLD, Depression, H/o anesthesia reaction (note states developed encephalopathy 5 days after stent procedure) Allergies: fentanyl - itching throat closing salicylates - SOB Iodine - eye swelling hives Augmentin - rash ASA - face swelling hydromorphone - rash meperidine - itch morphine - itch tramadol - mild reaction Medications: Tamsulosin, Atorvastatin, Pantoprazole, Riboflavin, Cholecalciferol, Albuterol, Oxcarbazepine, Loperamide, Hydroxyzine, Mag ox, Acetaminophen, Cyanocobalamin, Midodrine, Oxybutynin, Metoprolol, Labs: Date: 11/19/2024 Time: 22:46 Plats 258 WBC 27 Other Studies: Outside records from [facility], Renal US 12/06 with severe unchanged L hydronephrosis, CT 04/13/2023- atrophic L kidney, chronic hydroureteronephrosis, urothelial thickening, b/l nephrolithiasis, subtotal colectomy, moderate hiatal hernia, Cr 2.12 on 04/20/23 Physical Exam: LOC / Mental Status: Awake, Alert, Oriented Airway: Mallampati Score: Class 2 Lungs: Cardiac: ASA Classification: Class II: Patient with mild systemic disease Assessment: 68F with L kidney obstruction and recurrent stones/infections, PCN placed at [facility] 01/27/24. pus from tube and pain, fevers 3d ago, tube dislodged. req for tube placement/new tube Plan: : Nephrostomy Placement Unilateral - Left Sedation / Anesthesia Plan: Moderate Sedation Consent by Patient Signature Line Electronic Signature on File Electronically Reviewed/Signed by: Lito Osborne MD Author Signature Dt/Tm:11/19/2024 11:13 PM Division of Interventional Cardiology Electronic Signature on File Electronically Reviewed/Signed by: Lito Osborne MD Author Signature Dt/Tm:11/19/2024 11:35 PM Division of Interventional Cardiology [facility] * MD Leland, Jose Juan Bello: MODIFY MD Rinaldi Pankhuri: PERFORM, MODIFY MD Rinaldi Pankhuri: MODIFY Event Display: . Authored Date: [id number] Name: ELISE NESBITT Patient Number: [id number] : 1955 Date of Service: 11/19/2024 Chief Complaint transfer from [facility] for pyelonephritis History of Present Illness Ms. Elise Nesbitt is a 69-year-old female with known history of hypertension and unilateral left neph tube placement who presents as a transfer from [facility] for pyelonephritis and concern for left hydronephrosis. Per chart review she has the following diagnoses noted, COPD, renal cyst, history of TIA, Takotsubo cardiomyopathy, bipolar disorder, recurrent UTI, CKD stage III, type 2 diabetes, hypertension. She does not recall any of her medications and did not bring a list. She notes that she initially presented to [facility] with 3 days of feeling "sick" noting fever, chills and worsening acute on chronic abdominal pain (left sided) and left sided flank pain. Has had poor PO intake due to this. Noted that she had left neph tube that fell out recently, was placed on01/2024 and the neph tube dislodged and fell out this morning. In the outside hospital, she washypotensive lowest 80s over 60s which improved with fluids to 101/74. She was mildly tachycardic in the 100s, afebrile and saturating appropriately on room air. Her labs are significant for leukocytosis to 27, with left shift, hemoglobin 11, platelets 258. CMP with sodium 137, potassium 3.7, chloride 111, bicarb 13, anion gap 13, BUN 46, creatinine 3.7, estimated creatinine clearance 12.6, glucose 163, lactate 1.6, AST 14, ALT 14, T. bili 0.7, D bili 0.2. Troponin was 25 and then 21, procalcitonin was 9.5. She received CT abdomen pelvis without contrast which revealed moderate to severe left hydronephrosis, negative for ureteral calculus, multiple bilateral renal calculi again noted, no right hydronephrosis. No evidence of bowel obstruction, colitis, appendicitis, postoperative changes in the rectosigmoid junction, no free air, no drainable fluid collection. RVP was negative. Due to concern for pyelonephritis with hydronephrosis and obstructive etiology she was transferred to [facility] for CVIR evaluation. Surgical history reviewed from prior notes, history of colonoscopy, EGD, lithotripsy, bilateral cataract extraction, blepharoplasty, cardiac cath, kidney surgery, appendectomy, tooth extraction, hand surgery, cholecystectomy, total abdominal hysterectomy and bilateral salpingo-oophorectomy, history of cholectomy Social History: Lives at home by herself, handles her own medications; No smoking or drinking alcohol. Family History: Unable to recall Review of Systems a full fourteen point review of systems was evaluated and negative unless stated in the HPI above. Physical Exam Vitals & Measurements T: 36.7 °C HR: 103 (Monitored) RR: 23 BP: 103/67 SpO2: 100% HT: 149.86 cm WT: 72.000 kg (Dosing) WT: 72 kg BMI: 32.06 BMI: 32.06 kg/m2 General: NAD, lying in bed, able to answer questions HEENT: EOMI, anicteric, conjunctiva without injection, MMM, no JVD, no adenopathy CV: RRR, S1 S2 present with no murmur, gallops, rubs. trace edema b/l ankles Lungs: CTA B/L with no wheezes, rales, rhonchi anteriorly. No increased WOB. On RA. Abdomen: Diffusely tender throughout abdomen, worse in the left middle and lower quadrants; Back: Left CVA tenderness, bandage at site of left flank; no right CVA tenderness MSK: no gross deformities noted, no clubbing/cyanosis. Skin: Warm, dry, intact, with no noted rash Assessment/Plan Ms. Elise Nesbitt is a 69-year-old female with known history of hypertension and unilateral left neph tube placement who presents as a transfer from [facility] with concern for obstructiveleft hydronephrosis with pyelonephritis causing sepsis (SOFA 9). Further evidence of PERRI on CKD and metabolic acidosis. #Sepsis in the setting of obstructive pyelonephritis SOFA score 9 (MAP<70, Cr>3.5); OSH CT concerning for left hydronephrosis in the setting of recent left neph tube dislodgement and expulsion - s/p fluids at OSH (unable to quantify amt) and 1L LR with improvement in hypotension - Start IV cefepime and vancomycin, dose adjusted for CrCl - Pending urine culture, blood cultures - F/u OSH blood cultures from 11/19 - CVIR consult for neph tube placement for source control - OOCTAP uploaded and pending read #PERRI on CKD II, baseline around 2.2 Likely prerenal based on poor PO intake/intrinsic in the setting of infection - s/p fluids, monitor creatinine, avoid nephrotoxic medications - pending urine Na, urine Cr #Metabolic acidosis Mild anion gap metabolic acidosis likely in the setting of PERRI on CKD/consider contribution from ketones/lactate - Pending lactic acid (OSH lactate ~1) - If no improvement with infectious course, consider initiation of [place]b in setting of CKD - BMP qAM Chronic medical problems Patient unable to confirm home medications/previous medical diagnoses. Will need collateral information from PCP. Attempted to call daughter but number not in service. FEN/DIET: NPO pending procedure CONSULTS: CVIR ISOLATION: None ACCESS: PIV DISPO: IMC CODE: Full, confirmed with patietn at bedside Jorge Luis Rinaldi M.D. PGY 4 Internal Medicine & Pediatrics Available on [facility] Attestation Pt was seen and examined by me and I agree w/ this assessment in which I had significant input. Medications Inpatient cefepime, 1000 mg= 50 mL, IV, q12h vancomycin(vancomycin (Dosed by Levels)), 1 each, N/A, As indicated Home atorvastatin(atorvastatin 40 mg oral tablet), 40 mg= 1 tab, PO, Daily cholecalciferol(Vitamin D3), See Instructions hydrOXYzine(hydrOXYzine hydrochloride 25 mg oral tablet), 25 mg= 1 tab, PO, Daily magnesium oxide(magnesium oxide 400 mg (241.3 mg elemental magnesium) oral tablet), 400 mg= 1 tab, PO, Daily metoprolol(metoprolol succinate 25 mg oral capsule, extended release), 25 mg= 1 cap, PO, bid midodrine(midodrine 5 mg oral tablet), 5 mg= 1 tab, PO, tid OXcarbazepine(OXcarbazepine 300 mg oral tablet), 300 mg= 1 tab, PO, bid oxyBUTYnin(oxyBUTYnin 5 mg oral tablet), 5 mg= 1 tab, PO, Daily oxyCODONE(oxyCODONE 5 mg oral tablet), 5 mg= 1 tab, PO, q6h, PRN pantoprazole(pantoprazole 40 mg oral delayed release tablet), 40 mg= 1 tab, PO, bid predniSONE(predniSONE 50 mg oral tablet), See Instructions riboflavin(riboflavin 400 mg oral tablet), 400 mg= 1 tab, PO, Daily tamsulosin(tamsulosin 0.4 mg oral capsule), 0.4 mg= 1 cap, PO, Daily Allergies Allergy Not found in Search Amoxicillin - Reaction Unknown, Salicylates - Reaction Unknown, Clavulanic Acid - Reaction Unknown HYDROmorphone Hydrochloride ER Confusion, Hallucinations IVP dye Throat Closes aspirin Unknown fentaNYL Itchy skin around patch meperidine Unknown morphine Itchy, Anaphylaxis penicillins Anaphylaxix, Hives traMADol Unknown Electronic Signature on File Electronically Reviewed/Signed by: Jorge Luis Rinaldi MD Author Signature Dt/Tm:11/20/2024 01:57 AM Resident Department of Pediatrics Electronically Reviewed/Signed by: Jose Juan Ha MD Cosigner Signature Dt/Tm: 11/20/2024 08:25AM Division of Internal Medicine - Hospitalist PM Allergy and Immunology Consult note * MD Lewis Taha M: MODIFY MD Lewis Taha M: MODIFY, MODIFY Event Display: Allergy/Immuno Consult Authored Date: [id number] ALLERGY/IMMUNO INPATIENT CONSULTATION REPORT Name: ELISE NESBITT Patient Number: [id number] : 1955 Date of Service: 11/21/2024 REQUESTING SERVICE: Medicine REASON FOR CONSULTATION: Penicillin Allergy ASSESSMENT: Elise is a 69-year-old female with history of hypertension, CKD due to diabetes, diabetes mellitus, hyperlipidemia, Takotsubo syndrome who is a transfer from an outside hospital admitted for sepsissecondary to obstructive pyelonephritis. Urine culture obtained grew Enterococcus faecalis and in light of her penicillin allergy, allergy was consulted for evaluation. Discussed with the patient that her reaction, characterized by angioedema and the need for treatment following the first dose of a penicillin antibiotic, is suggestive of an IgE-mediated hypersensitivity reaction, particularly given her prior tolerance of penicillin. If penicillin is required for the management of her current infection, she would benefit from skin testing prior to undergoing an oral graded challenge. Her PEN-FAST score of 20% indicates a moderate risk of a positive penicillin allergy test. We reviewed the potential risks of an oral graded challenge, including the possibility of a life threateninganaphylactic reaction characterized by hypotension, respiratory distress, and angioedema. The patient expressed understanding and agreement with this plan. RECOMMENDATIONS: _ If penicillin is necessary for the management of her current infection, the following steps are recommended: - Avoid all antihistamines prior to the challenge to ensure accurate testing. Step 1: Skin Testing - Plan to perform skin testing, including intradermal testing, as early as tomorrow. - If skin testing and intradermal testing is negative, will plan to proceed with the oral graded challenge. Step 2: Oral Graded Challenge - Obtain vital signs before administration. - Initial dose: Administer 25 mg of Amoxicillin PO and monitor for signs of anaphylaxis for 30 minutes prn - Second dose: If no reaction occurs, administer 225 mg of Amoxicillin PO and monitor for an additional 60 minutes prn If no reaction occurs during the challenge, penicillin allergy can be removed from her medical record which she may continue to use for management of her infectious process. Please have IM 0.3 mg pre sales technical consultant, Cetirizine 10 mg PO as needed, Benadryl 50 mg IV as needed and Albuterol MDI as needed Signs of anaphylaxis: generalized hives, trouble breathing, swelling of the lips/tongue, wheezing/stridor, vomiting (though patient was noted to be retching in the room during evaluation which could confound testing), hypotension, tachycardia from baseline Kenneth Charles MD PGY-4, Fellow in Allergy & Immunology [facility] History of Present Illness: Kevin Olivares is a 69-year-old female with history of hypertension, CKD due to diabetes, diabetes mellitus, hyperlipidemia, Takotsubo syndrome who is a transfer from an outside hospital admitted for sepsissecondary to obstructive pyelonephritis. Urine culture obtained grew Enterococcus faecalis and in light of her penicillin allergy, allergy was consulted for evaluation. She endorses that she was given penicillin more than 10 years ago for pneumonia. At that time, she was hospitalized at [facility] and on the first day with the first dose of that antibiotics, she endorsed throat swollen shut, pruritic urticarial lesions, trouble breathing. At that time,physician came at bedside and she endorsed that she may have been given antihistamine such as Benadryl. She does not recall getting an EpiPen. She has been avoiding all penicillin group since. Prior to her episode, she endorsed that she was tolerating without any side effects. Review Of Systems: see HPI Past Medical History: Problems Active Takotsubo syndrome Diabetes mellitus CKD stage 3 secondary to diabetes Colon cancer Depression Anxiety Chronic GERD CALI (obstructive sleep apnea) Chronic obstructive lung disease Hyperlipidemia Hypertension Surgical History: Procedure History Procedure Procedure Date Comments None Family History: Non contributory Social History: Non contributory Allergies and Sensitivities: morphine(Anaphylaxis) morphine(Itchy) HYDROmorphone Hydrochloride ER(Hallucinations) HYDROmorphone Hydrochloride ER(Confusion) fentaNYL(Itchy skin around patch) penicillins(Hives) penicillins(Anaphylaxix) Allergy Not found in Search(Amoxicillin - Reaction Unknown) Allergy Not found in Search(Clavulanic Acid - Reaction Unknown) Allergy Not found in Search(Salicylates - Reaction Unknown) traMADol(Unknown) meperidine(Unknown) IVP dye(Throat Closes) aspirin(Unknown) Active Inpt Meds: acetaminophen (Tylenol) 1,000 mg PO q6h cefTRIAXone 1,000 mg IV q24h enoxaparin (Lovenox) 30 mg subQ q24h lidocaine topical (lidocaine 4% patch) 1 patch transdermal q24h midodrine 5 mg PO tid psyllium (Metamucil) 0.5 packet PO tid vancomycin (vancomycin (Dosed by Levels)) 1 each N/A As indicated Active PRN Meds: ondansetron (Zofran) 4 mg IV Push q6h oxyCODONE 7.5 mg PO q4h oxyCODONE 5 mg PO q4h One Time Meds: (Completed) Lactated Ringers Injection (LR Bolus) 1,000 mL w/ Bolus-IV ONCE(Completed) Sodium Chloride 0.9% (NS Bolus) 500 mL w/ Bolus-IV ONCE(Completed) lidocaine patch off 1 patch_OFF w/ transdermal ONCE(Ordered) lidocaine patch off 1 patch_OFF w/ transdermal ONCE(Completed) potassium chloride 30 mEq w/ PO ONCE(Ordered) vancomycin 750 mg w/ IV ONCE Active IV Meds: Dextrose 5% in Water 1,000 mL + sodium bicarbonate 150 mEq (Dextrose 5% in Water 1,000 mL + sodium bicarbonate additive 150 mEq) 1,000 mL 100 mL/HR Vitals: Last Updated 11/21/24 14:00 Weights: Last Updated 11/20/24 05:18 Date Temp Pulse BP RR SpO2 FIO2 Date Wt(kg) Wt(lb) 11/21 14:00 61 15 95 11/20 05:18 72.3 159 11/21 14:00 93/54 11/19 20:22 72.0 158 11/21 12:00 67 17 98 11/19 20:22 72.0 158 11/21 12:00 36.6 97/73 11/21 10:38 101/66 24 Hr Tmax: 36.8 at 11/21 08:00 Initial Wt: 11/19 72.0 kg 158 lb Physical Exam: General: Well-appearing, well nourished. No acute distress. Cardiac: Skin appears well perfused. Lungs: No respiratory distress. Appears to be breathing comfortably on room air. No audible wheezing. Extremities: Moves all extremities spontaneously. Neuro: Alert. No gross neurological deficits. Skin: Warm and well perfused. Cap refill <2s. No rashes or lesions. Most Recent 24 Hour CBC/BMP Results CBC: on 11/21/2024 08:05 Nephrology Panel: on 11/21/2024 11:30 • • • • • • 8.0 • 142 • 114 • 34 • • • • • • 15.5 • • • • • • • • 186 • • • • • • • • • • • • • • 143 • • • • • • 26.7 • 3.5 • 14 • 2.66 • • • • • • Abs Neut = 13.1 Ca = 9.1 Most Recent 24 Hour Labs: 11/21/24 1311 Estimated CrCl 16.76 11/21/24 1130 Anion Gap 14 BUN 34 H Ca 9.1 Cl- 114 H HCO3 14 CL Cret 2.66 H Glu 143 H K 3.5 Na 142 PO4 2.5 eGFR CKD-EPI 19 L Alb 2.8 L 11/21/24 0805 Request of Physician See Flowsheet Action Taken See Flowsheet Lactate 1.0 Temp(v) NOT PROVIDED HCO3(v) 14.5 L pCO2(v) 37.0 L pH(v) 7.200 L pO2(v) 29.0 Base Defic(v) 12.6 MCH 29.5 MCHC 30.0 L MCV 98.5 H RBC 2.71 L MPV 11.2 Immature Gran% 0.8 Neut% 84.0 Lymph% 5.5 Morton% 8.6 Baso% 0.2 Eos% 0.9 Immat Gran, Abs 0.12 Lymph, Abs 0.86 L Morton, Abs 1.34 H Baso, Abs 0.03 Eos, Abs 0.14 Type of Diff: See Flowsheet RDW 14.1 Ketones, bld 0.17 Vanco tr 13.6 Studies: Pending or Completed in the Last 24 Hours IR Neph Tube Placement Ordered OO CT Abdomen and Pelvis Consult Ordered _ I personally saw and examined the patient. I discussed the plan of care with the patient. I agree with Dr. Charles 's (allergy & Immunology fellow) history, exam findings and plan of care as outlined in the note above. Thank you for allowing us to participate in the care of your patient. Please do not hesitate to contact us with any questions or concerns, or if we can be of further assistance. Leticia Lewis, [facility] Allergy and Immunology Service Electronic Signature on File Electronically Reviewed/Signed by: Kenneth Charles MD Author Signature Dt/Tm:11/21/2024 04:11 PM Resident Division of Allergy and Immunology Electronically Reviewed/Signed by: Leticia Lewis MD Cosigner Signature Dt/Tm: 11/21/2024 07:58 PM Division of Allergy and Immunology LN * MD Lewis Taha M: PRASANNA Lewis MD, Leticia Esquivel: MODIFY Event Display: Allergy/Immuno Consult Authored Date: [id number] on 11/22/2023: Skin testing to penicillin was negative. Proceeded with 2 step oral challenge with amoxicillin as stated above. No reactions noted during challenge. As such, discussed with primary team that penicillin may be removed from her medication allergy list. If penicillin is indicated for management of herinfection, it may be used. She is currently considered average risk for reaction to penicillin. Kenneth Charles MD PGY-4, Fellow in Allergy & Immunology [facility] Electronic Signature on File Electronically Reviewed/Signed by: Kenneth Charles MD Author Signature Dt/Tm:11/23/2024 08:02 AM Resident Division of Allergy and Immunology Electronically Reviewed/Signed by: Leticia Lewis MD Cosigner Signature Dt/Tm: 11/23/2024 02:34 PM Division of Allergy and Immunology LN .D/C Summary * MD Voss Khalil: MODIFY MD Michel Ami M: PERFORM, MODIFY MD Michel Ami M: MODIFY, MODIFY MD Michel Ami M: MODIFY Event Display: .D/C Summary Authored Date: [id number] [facility] For medical concerns, call: . Address: [address] [place] [address] (MOBILE) : 1955 . Date of Admission: 11/19/2024 Date of Discharge: 11/25/2024 Physician: MD Voss Khalil Service: Internal Medicine Discharge Disposition: Home with Home Health Primary Care Provider/Phone: DO ORTEGA AMANDA MAE (BUSINESS) [phone] (FAX [employer]) Principal Diagnosis: Complicated UTI Other Diagnoses: Acute kidney injury superimposed on CKD Adverse effect of penicillin High anion gap metabolic acidosis Hypotension Pyelonephritis Sepsis Major Tests and Procedures: Left nephrostomy tube replacement 11/19 CTAP over-read from 11/15/2024: 1. Moderate left hydroureteronephrosis. Urothelial thickening of the left renal collecting system, which can be seen in UTI. Please correlate with urinalysis. 2. Distal left ureteral stenosis. Hospital Course: Ms. Elise Nesbitt is a 69-year-old female with known history of hypertension and unilateral left nephrostomy tube placement who presented as a transfer from [facility] with concern for obstructive left hydronephrosis with pyelonephritis causing sepsis (SOFA 9). Further evidence of PERRI on CKD and metabolic acidosis. Lactate was 2.2 on admission but downtrended after. CVIR replaced her L nephrostomy tube on 11/20. Her home metoprolol was held due to hypotension but restarted at discharge. For sepsis management, she received IVF, and antibiotics as follows: Cefepime 1g q12h 11/20-11/21 Ceftriaxone 1g q24h 11/21-11/22 Ampicillin 2g q8h 11/23-11/24 Vancomycin 1500mg then 750mg and then dosed by levels 11/19-11/21 We are discharging her on Augmentin 875mg bid until 12/04. Her blood cultures showed no growth till date. Her urine cultures from the outside hospital grew E coli that was smith susceptible and the culture here on 11/19 showed E Faecalis which was also smith susceptible. The culture from her left neph tube on 11/19 showed E coli that was resistant to tetracyclines. She had a documented amoxicillin allergy, so she received a skin test and po amoxicillin challenge which she passed and the penicillin allergy was removed from her chart. The allergy test was done on 11/22 as follows: Step 1: Skin Testing - Plan to perform skin testing, including intradermal testing, as early as tomorrow. - If skin testing and intradermal testing is negative, will plan to proceed with the oral graded challenge. Step 2: Oral Graded Challenge - Obtain vital signs before administration. - Initial dose: Administer 25 mg of Amoxicillin PO and monitor for signs of anaphylaxis for 30 minutes prn - Second dose: If no reaction occurs, administer 225 mg of Amoxicillin PO and monitor for an additional 60 minutes prn No reaction occurred during the challenge. During her hospitalization she received scheduled tylenol and PRN oxycodone for pain management andphenergan for nausea. She had a decreased appetite during her admission which she reported has beenchronic. Nutrition was consulted and said she does not meet criteria for protein-calorie malnutrition and recommended [place] Instant Breakfast with meals. We recommend following up with her PCPabout this. She also had some loose BM which improved with metamucil. For her ambulatory dysfunction, she received evals from PT and OT which recommended Home health. Follow up appointments: PCP as scheduled on 11/26 - follow up on restarting metoprolol if medically indicated, decreased appetite and pain management, schedule follow up appointments with urology and pain clinic Urology as scheduled by PCP for kidney stones Pain clinic - to be referred by PCP Neph tube drain changes per IR New medications: Augmentin 875mg BID until 12/04 Pain management per PCP Metamucil Medications stopped: Metoprolol due to hypotension in the hospital She is now stable and ready for discharge on Augmentin BID until 12/04. Exam on Discharge: Vitals & Measurements: T: 36.4 °C TMIN: 36 °C TMAX: 36.8 °C HR: 75 (Monitored) RR: 18 BP: 113/80 SpO2: 95% Oxygen Therapy: Room Air BMI: 32.19 kg/m2 General: lying in bed, NAD HEENT: Normocephalic, atraumatic. Anicteric sclerae. Neck: Trachea midline. Cardiac: RRR no m/r/g. Lungs: CTA b/l anteriorly Abdomen: diffusely mildly tender Extremities: Moves all extremities spontaneously. Mild pedal edema- stable Skin: Warm and well perfused. No rashes or lesions. Discharge Medications: 1.HydrOXYzine (hydrOXYzine hydrochloride 25 mg oral tablet) 25 mg (1 tab) by mouth once daily. atBedtime. 2.Magnesium oxide (magnesium oxide 400 mg (241.3 mg elemental magnesium) oral tablet) 400 mg (1 tab) by mouth once daily. 3.Midodrine (midodrine 5 mg oral tablet) 5 mg (1 tab) by mouth 3 times daily. 4.OXcarbazepine (OXcarbazepine 300 mg oral tablet) 300 mg (1 tab) by mouth 2 times daily. 5.OxyBUTYnin (oxyBUTYnin 5 mg oral tablet) 5 mg (1 tab) by mouth once daily. 6.Atorvastatin (atorvastatin 40 mg oral tablet) 40 mg (1 tab) by mouth once daily. 7.Tamsulosin (tamsulosin 0.4 mg oral capsule) 0.4 mg (1 cap) by mouth once daily. 8.Pantoprazole (pantoprazole 40 mg oral delayed release tablet) 40 mg (1 tab) by mouth 2 times daily. . 9.Riboflavin (riboflavin 400 mg oral tablet) 400 mg (1 tab) by mouth once daily. 10.Cholecalciferol (Vitamin D3) See Instructions . 2,000mg, daily in AM. 11.Psyllium (Metamucil) 1 packet by mouth 3 times daily. 12.Amoxicillin-clavulanate (Augmentin 875 mg-125 mg oral tablet) 1 tab by mouth every 12 hours. Please take one pill twice a day until 12/04. 13.Sodium chloride (Normal Saline Flush 0.9% injectable solution) See Instructions . Flush your tube with 10cc at a time. Allergies and Sensitivities: Allergy Not found in Search Amoxicillin - Reaction Unknown, Salicylates - Reaction Unknown, Clavulanic Acid - Reaction Unknown HYDROmorphone Hydrochloride ER Confusion, Hallucinations IVP dye Throat Closes aspirin Unknown fentaNYL Itchy skin around patch meperidine Unknown morphine Itchy, Anaphylaxis traMADol Unknown Tests Pending: Follow-Up Tests and Studies After Discharge: Per PCP Scheduled Appointments: Someone will reach out about an appointment for drain change by IR Other Appointments: Follow Up with [facility] [employer] P: [phone] F: [phone] Additional Information: Home Health Services The following appointments need to be scheduled by PCP: Urology Pain clinic Discharge Services: Service: Organization: Business Address: Phone Number: [facility] [email or web address], [place], [address] Care Instructions: You were admitted for dislodgement of your nephrostomy tube and a complicated urinary tract infection. Follow-up appointments: 1. Keep all your follow-up appointments as already scheduled. If you cannot make an appointment, notify your provider. 2. Please follow-up with your primary care provider as scheduled on 11/26. Please follow up on restarting the metoprolol if clinically indicated, decreased appetite and pain management. Please ask your PCP to schedule your follow up appointments with urology and the pain clinic. 3. Please follow up with urology for your kidney stones as scheduled by your PCP. 4. Please follow up with the pain clinic per the referral by your PCP. 5. Please get your nephrostomy drain changed every 3 months with IR. Someone will reach out to you about this appointment. Follow-up labs: per PCP Medications: - Your medication list has been reviewed and reconciled upon discharge to ensure accuracy and continuity of care. - You are provided with a list of all your current medications at this time. Please review closely and make note of any changes. - Please take all of your medications exactly as prescribed. - Tell your primary care provider if you cannot afford your medications or if you are having any side effects. It was our pleasure to care for you during your hospitalization. New Medications: Augmentin 875mg BID until 12/04 Pain management per PCP given that it is chronic Metamucil Medications stopped: Metoprolol due to hypotension in the hospital . Advance Directive: None I personally spent 45 minutes in discharge planning. Attending, Dr. Froylan Voss attestation: I have seen and examined the patient with the residents at the bedside. I agree with the Resident'sdocumentation above regarding current clinical condition and future plans for care, unless modifiedby my comments above in blue. I personally performed the cornell portions of the E&M and reviewed the resident's documentation. I was present during and observed the resident perform the cornell portions of the E&M. I engaged in the E&M without the resident. I have independently reviewed additional studies/laboratory data, imaging, consultation notes. Electronic Signature on File CC: Lo Ortega DO [facility] [address] [place] [id number] * Electronically Reviewed/Signed by: Olga Lidia Michel MD Author Signature Dt/Tm:11/25/2024 11:46 AM Resident Division of Internal Medicine Electronically Reviewed/Signed by: Olga Lidia Michel MD Cosigner Signature Dt/Tm: 11/25/2024 11:50 AM Resident Division of Internal Medicine Electronically Reviewed/Signed by: Froylan Voss MD Cosigner Signature Dt/Tm: 11/25/2024 02:03 PM Division of Internal Medicine - Hospitalist RHONDA Discharge instructions * MD Anand, Olga Lidia M: PERFORM, MODIFY, MODIFY, MODIFY Event Display: Patient Discharge Instructions Authored Date: [id number] ELISE NESBITT :1955 Visit Date:11/19/2024 Patient Discharge Instructions [facility] For medical concerns, call: . Date of Admission: 11/19/2024 Date of Discharge: 11/25/2024 Physician: MD Bipin, Froylan Service: Internal Medicine Discharge Disposition: Home with home health . Advance Directive: None Reason for Hospitalization Complicated UTI Your Diagnoses Acute kidney injury superimposed on CKD Adverse effect of penicillin High anion gap metabolic acidosis Hypotension Pyelonephritis Sepsis [employer] Patient Portal: [place] [employer] makes it easy for you to manage your health information online. [employer] [place] [employer] is a free service that provides you instant, secure access to your medical information anytime, anywhere. Sign in or set up your account today at [email or web address] Thank you for allowing us to assist you with your healthcare needs. If you need additional community resources, [place] [employer] can help at https://www.pa211.org. 211 can assist you in connecting with social programs based on your unique needs and locations. 211 is an anonymous search that can help you locate resources for: Food, Housing, Transportation, Goods, Education and Healthcare. Medications Patient is enrolled in Rx-to-Go Program New medications will be delivered from [facility] to patient's room at discharge: Mon-Sun from 9AM-5 PM. Medications MUST be PICKED UP at [facility] if patient is discharged Mon-Sun after 5 PM or anytime on holidays. Please note, the [facility] closes at 8 PM on weekdays and 5:30 PM on Saturdays, Sundays, and holidays. What How Much When Instructions Next Dose New amoxicillin-clavulanate (Augmentin 875 mg-125 mg oraltablet) 1 tab(s) by mouth Every 12 hours Duration: 10 Days Please take one pill twice a day until Pickup at [facility] New psyllium (Metamucil) 1 packet(s) by mouth 3 times daily New sodium chloride (Normal Saline Flush 0.9% injectable solution) See instructions Flush your tube with 10cc at a time Pickup at [facility] Unchanged atorvastatin (atorvastatin 40 mg oral tablet) 1 tab(s) by mouth Once daily Unchanged cholecalciferol (Vitamin D3) See instructions 2,000mg, daily in AM Unchanged hydrOXYzine (hydrOXYzine hydrochloride 25 mg oral tablet) 1 tab(s) by mouth Once daily at Bedtime Unchanged magnesium oxide (magnesium oxide 400 mg (241.3 mg elemental magnesium) oral tablet) 1 tab(s) by mouth Once daily Unchanged midodrine (midodrine 5 mg oral tablet) 1 tab(s) by mouth 3 times daily Unchanged OXcarbazepine (OXcarbazepine 300 mg oral tablet) 1 tab(s) by mouth 2 times daily Unchanged oxyBUTYnin (oxyBUTYnin 5 mg oral tablet) 1 tab(s) by mouth Once daily Unchanged pantoprazole (pantoprazole 40 mg oral delayed release tablet) 1 tab(s) by mouth 2 times daily Unchanged riboflavin (riboflavin 400 mg oral tablet) 1 tab(s) by mouth Once daily Unchanged tamsulosin (tamsulosin 0.4 mg oral capsule) 1 cap by mouth Once daily Pharmacy Information [facility]: [address] [place] [address] LANDR[place] Cota [phone] What How Much When Comments Stop Taking metoprolol (metoprolol succinate 25 mg oral capsule, extended release) 1 cap by mouth 2 times daily Stop Taking oxyCODONE (oxyCODONE 5 mg oral tablet) 5 Milligram by mouth Every 6 hours as needed for as needed for pain Stop Taking predniSONE (predniSONE 50 mg oral tablet) See instructions 1 tab PO 13 hours, 7 hours and 1 hour prior to scheduled procedure for IVP dye allergy. Allergies Allergy Not found in Search Amoxicillin - Reaction Unknown, Salicylates - Reaction Unknown, Clavulanic Acid - Reaction Unknown HYDROmorphone Hydrochloride ER Confusion, Hallucinations IVP dye Throat Closes aspirin Unknown fentaNYL Itchy skin around patch meperidine Unknown morphine Itchy, Anaphylaxis traMADol Unknown What to do next Instructions From Your Doctor You were admitted for dislodgement of your nephrostomy tube and a complicated urinary tract infection. Follow-up appointments: 1. Keep all your follow-up appointments as already scheduled. If you cannot make an appointment, notify your provider. 2. Please follow-up with your primary care provider as scheduled on 11/26. Please follow up on restarting the metoprolol if clinically indicated, decreased appetite and pain management. Please ask your PCP to schedule your follow up appointments with urology and the pain clinic. 3. Please follow up with urology for your kidney stones as scheduled by your PCP. 4. Please follow up with the pain clinic per the referral by your PCP. 5. Please get your nephrostomy drain changed every 3 months with IR. Someone will reach out to you about this appointment. Follow-up labs: per PCP Medications: - Your medication list has been reviewed and reconciled upon discharge to ensure accuracy and continuity of care. - You are provided with a list of all your current medications at this time. Please review closely and make note of any changes. - Please take all of your medications exactly as prescribed. - Tell your primary care provider if you cannot afford your medications or if you are having any side effects. It was our pleasure to care for you during your hospitalization. New Medications: Augmentin 875mg BID until 12/04 Pain management per PCP given that it is chronic Metamucil Medications stopped: Metoprolol due to hypotension in the hospital You were offered a Hepatitis C screening test and you declined. Please follow up with your PCP. If you notice the following symptoms Call your doctor if you have any shortness of breath, chest pain, difficulty breathing, dizziness, fevers, chills, nausea, vomiting, diarrhea, or any other problems, questions or concerns. Contact the [facility] Careline at . If unable to contact your physician and you feel it is an emergency, go to the nearest Emergency Room or call 911 Diet Instructions Resume home diet. Follow up with PCP about decreased appetite. Activity Instructions Physical Therapy: Use of wheelchair for long distance ambulation Follow-Up Appointments You Need to Schedule the Following Appointments Follow Up with [facility]. P: [phone] F: [phone] Additional Information: Home Health Services Someone Will Contact You Regarding These Appointments Urology and pain clinic per PCP Drain change every [address] [facility] The Following Services Have Been Arranged for You Service: Organization: Business Address: Phone Number: Home Care Physician Services [facility] [address], [place], [address] Tests Pending Extra Green ([place] Heparin) Complete Blood Count w Diff Nephrology Panel To obtain results pending at hospital discharge, call and ask for the following Physician: MD Bipin, Froylan Procedures Performed Left Nephrostomy tube replacement on 11/19 Immunizations This Visit None Special Instructions Common Emergency Awareness Tips Call 911 immediately if: experiencing any of the warning signs and symptoms of stroke: B.E. F.A.S.T. Balance: is there trouble with walking or coordination Eyes: is there double vision or visual loss Face: Smile, do both sides of face move equally Arm: Raise arms, do both arms move equally Speech: Is speech slurred or inappropriate Time: Time is critical, call 911 immediately Heart Attack Signs Chest discomfort: Most heart attacks involve discomfort in the center of the chest and lasts more than a few minutes, or goes away and comes back. It can feel like uncomfortable pressure, squeezing, fullness or pain. Discomfort in upper body: Symptoms can include pain or discomfort in one or both arms, back, neck, jaw or stomach. Shortness of breath: With or without discomfort. Other signs: Breaking out in a cold sweat, nausea, or lightheaded. Remember, MINUTES DO MATTER. If you experience any of these heart attack warning signs, call to get immediate medical attention! Education [employer] Percutaneous Nephrostomy, Care After After the procedure, it is common to have: • Soreness where the nephrostomy tube was inserted (tube insertion site). • Drainage with a bit of blood from the tube for the first 24 hours. Follow these instructions at home: Activity • If you were given a sedative during the procedure, it can affect you for several hours. Do not drive or operate machinery until your health care provider says that it is safe. • Do not lift anything that is heavier than 10 lb (4.5 kg), or the limit that you are told, until your health care provider says that it is safe. • Avoid activities that may cause your tube to bend. • Do not take baths, swim, or use a hot tub until your health care provider approves. Ask your healthcare provider if you may take showers. You may only be allowed to take sponge baths. • Cover your bandage (dressing) with a watertight covering if you take a shower. • Return to your normal activities as told by your health care provider. Ask your health care provider what activities are safe for you. Care of the tube insertion site • Follow instructions from your health care provider about how to take care of your tube insertion site. Make sure you: ◦ Wash your hands with soap and water for at least 20 seconds before and after you change your dressing. If soap and water are not available, use hand medical voucher clerk. ◦ Change your dressing as told by your health care provider. Do not pull on your tube while taking off the dressing. ◦ When you change the dressing, wash the skin around the tube, rinse well, and pat the skin dry. • Check the tube insertion area every day for signs of infection. Check for: ◦ Redness, swelling, or pain. ◦ Fluid or blood. ◦ Warmth. ◦ Pus or a bad smell. Care of the nephrostomy tube and drainage bag • When you connect your tube to a drainage bag, make sure there are no kinks in the tubing. Check that your urine is draining freely. You may want to use an elastic bandage to wrap any exposed tubing that goes from the nephrostomy tube to any of the connecting tubes. • At night, connect your tube or the leg bag to a larger bedside drainage bag. • Always keep the tubing, the leg bag, and the bedside drainage bag below the level of your kidney. This ensures that your urine can drain freely. • Empty the drainage bag when it becomes ⅔ full. • Follow instructions from your health care provider about how to empty or change the drainage bag. • Replace the drainage bag and any extension tubing that is connected to your tube every 7 days or astold by your health care provider. Your health care provider will explain how to change the bag andextension tubing. General instructions • Take [id number] and prescription medicines only as told by your health care provider. • Keep all follow-up visits. Your tube will need to be changed every 8–12 weeks. Your health care provider may give you more instructions. Make sure you know what you can and cannot do. Contact a health care provider if: • You have problems with any of the drain valves or tubing. • You have back pain that does not get better with medicine. • You have any signs of infection. • You have a fever or chills. • You make more urine than normal, or it joiner when you urinate. • You make less urine than normal. • You have new blood in your urine. Get help right away if: • You have chest pain or trouble breathing. • Your tube comes out. These symptoms may be an emergency. Get help right away. Call 911. • Do not wait to see if the symptoms will go away. • Do not drive yourself to the hospital. This information is not intended to replace advice given to you by your health care provider. Make sure you discuss any questions you have with your health care provider. Document Revised: 04/14/2023 Document Reviewed: 04/14/2023 [employer] Patient Education © 2023 [employer] Percutaneous Nephrostomy Home Guide Percutaneous nephrostomy is a procedure to insert a tube into your kidney. This is done to help urine leave your body. The nephrostomy tube is inserted into your back and connected to a drainage bag outside your body. Urine collects in the drainage bag. You will need to empty and change the drainage bag. You will also need to care for the area where the tube was inserted (tube insertion site). How to empty the drainage bag Empty the leg bag or bedside drainage bag when it becomes ⅔ full. Also, empty it before you go tosleep. Most of the bags have a drain valve at the bottom. This allows urine to be emptied. Follow these steps: 1. Hold the drainage bag over a toilet or collection container. Use a measuring container if your health care provider told you to measure your urine. 2. Open the drain valve of the bag. Allow urine to drain out. 3. After all the urine has drained, close the drain valve fully. 4. Flush urine down the toilet. If you used a collection container, rinse the container. How to change the dressing around the nephrostomy tube Change your bandage (dressing) and clean your tube insertion site as told by your health care provider. You may need to change the dressing every day for the first 2 weeks. After the first 2 weeks, you may be told to change it twice a week. Supplies needed: • Mild soap and water. • Split gauze pads, 4 x 4 inches (10 x 10 cm). • Gauze pads, 4 x 4 inches (10 x 10 cm). • Paper tape. Follow these steps: 1. Wash hands with soap and water for at least 20 seconds. 2. Gently remove the tape and dressing from around the tube. Do not pull on the tube when you take offthe dressing. Avoid using scissors. These may damage the tube. 3. Wash the skin around the tube with soap and water. Rinse well and pat the skin dry. 4. Check the skin around the drain for signs of infection. Check for: • Redness, swelling, or pain. • More fluid or blood. • Warmth. • Pus or a bad smell. 5. If the drain was stitched (sutured) to the skin, check to make sure the suture is still in place. 6. Place two split gauze pads in and around the tube insertion site. Do not apply ointments or alcoholto the site. 7. Place a gauze pad on top of the split gauze pad. 8. Make sure the tubing rests on the gauze, not the skin. 9. Place tape around each edge of the gauze pad. 10. Secure the tubing. Make sure the tube does not kink or become pinched. 11. Dispose of used supplies in the right way. How to flush the nephrostomy tube Flushing should only be done as told by your health care provider. It is easier to do if a three-way stopcock has been placed. One part of the stopcock connects to your tube, one part connects to thedrainage bag, and one part is covered with a cap. The lever on the stopcock points to the part thatis closed to flow. Normally, it points to the part that is covered with the cap. Supplies needed: • Alcohol wipe. • Syringes pre-filled with a solution for flushing. • Sterile cap. Follow these steps: 1. Move the lever of the three-way stopcock so it points toward the drainage bag. 2. Remove the cap from the stopcock port. 3. Clean the stopcock port with an alcohol wipe. Scrub the port for 5–15 seconds. 4. Screw the tip of the flush syringe into the stopcock port. 5. Over 5–10 seconds, use the syringe plunger to slowly push 5–10 mL, or the amount of flush solution told by your health care provider. If you feel something resist or if it hurts when you push, stop pushing the flush. 6. Remove the syringe from the stopcock port. 7. Move the lever so it points in the direction of the stopcock port. 8. Cover stopcock port with a new sterile cap. 9. Dispose of used supplies in the right way. How to replace the drainage bag Replace the drainage bag, three-way stopcock, and extension tubing as told by your health care provider. Follow these steps: 1. Empty urine from the drainage bag. 2. Gather a new drainage bag, three-way stopcock, and extension tubing. 3. Remove the drainage bag, stopcock, and tubing from the nephrostomy tube. 4. Attach the new drainage bag, stopcock, and tubing. 5. Dispose of the used drainage bag, stopcock, and tubing. General recommendations • When you connect your tube to a drainage bag, make sure there are no kinks in the tubing. You may want to wrap an elastic bandage over the tubing. This will help keep it in place. Make sure there is no tension on the tubing, so it does not get pulled on. • At night, connect your tube or the leg bag to a larger bedside drainage bag. • Always keep the tubing, the leg bag, and the bedside drainage bag below the level of your kidney. • Avoid activities that may cause your tube to bend. • Because of where your tube is, you may need help from a second person to do your dressing changes. • Make sure you always have an extra drainage bag and connecting tubing on hand. Contact a health care provider if: • You have problems with any of the drain valves or tubing. • You have back pain that does not get better with medicine. • You have any signs of infection around your tube insertion site. • You have a fever or chills. • You make more urine than normal, or it joiner when you urinate. • You make less urine than normal. • You have new blood in your urine. Get help right away if: • You have chest pain or trouble breathing. • Your tube comes out. These symptoms may be an emergency. Get help right away. Call 911. • Do not wait to see if the symptoms will go away. • Do not drive yourself to the hospital. This information is not intended to replace advice given to you by your health care provider. Make sure you discuss any questions you have with your health care provider. Document Revised: 04/14/2023 Document Reviewed: 04/14/2023 [employer] Patient Education © 2023 [employer]. Malnutrition, Adult Malnutrition is a group of symptoms that affects adults, including the elderly. These symptoms include eating too little and losing weight. People who have this may not want to be with friends, or they may not want to eat or drink. This condition is not a normal part of getting older. What are the causes? • A disease, such as dementia, diabetes, cancer, or lung disease. • A health problem, such as a vitamin deficiency or a heart problem. • A disorder, such as sadness (depression). • A disability. • Medicines. • Having tooth or mouth problems. • Neglect or being treated badly. • In some cases, the cause may not be known. What are the signs or symptoms? • Loss of more than 5% of your body weight. • Being more tired than normal after an activity. • Having trouble getting up after sitting. • Not feeling hungry. • Not getting out of bed. • Not wanting to do your normal activities. • Sadness. • Getting infections often. • Bedsores. • Taking a long time to get better after an infection, injury, or a surgery. • Weakness. How is this treated? Treatment for this condition depends on the cause. It may be treated by: • Treating a disease or disorder that is causing symptoms. • Having talk therapy or taking medicine to treat sadness. • Eating better, such as eating more often or taking nutritional supplements. • Changing or stopping a medicine. • Having physical or occupational therapy. It often takes a team of doctors to find the right treatment. Follow these instructions at home: • Take amjc-fhc-xvvnssy and prescription medicines only as told by your doctor. • Eat a healthy diet. Make sure that you eat enough. Ask your doctor how much you should eat. • Be active. Do exercises that make you stronger (strength training). A physical therapist can help to set up a program that fits you. • Make sure that you are safe at home. • Have a plan for what to do if you cannot make decisions for yourself. Contact a doctor if: • You are not able to eat well. • You are not able to move around. • You feel very sad. • You feel very hopeless. Get help right away if: • You think about ending your life. • You cannot eat or drink. • You do not get out of bed. • Staying at home is not safe. • You have a fever. Get help right away if you feel like you may hurt yourself or others, or have thoughts about takingyour own life. Go to your nearest emergency room or: • Call 911. • Call the National Suicide Prevention Lifeline at or 705. This is open 24 hours a day. • Text the Crisis Text Line at 736718. Summary • Malnutrition is a group of symptoms that affect adults, including the elderly. • Symptoms include eating too little and losing weight. • Take all medicines only as told by your doctor. • Eat a healthy diet. Make sure that you eat enough. Ask your doctor how much you should eat. • Be active. Do exercises that make you stronger. A physical therapist can help to set up a program that is right for you. This information is not intended to replace advice given to you by your health care provider. Make sure you discuss any questions you have with your health care provider. Document Revised: 06/11/2022 Document Reviewed: 06/11/2022 [employer] Patient Education © 2023 [employer] Protein-Energy Malnutrition Protein-energy malnutrition is when a person does not eat enough protein, fat, and calories. When this happens over time, it can lead to severe loss of muscle tissue (muscle wasting). This condition also affects the body's defense system (immune system) and can lead to other health problems. What are the causes? This condition may be caused by: • Not eating enough protein, fat, or calories. • Having certain chronic medical conditions. • Eating too little. What increases the risk? The following factors may make you more likely to develop this condition: • Living in poverty. • Long-term hospitalization. • Alcohol or drug dependency. Addiction often leads to a lifestyle in which proper diet is ignored. Dependency can also hurt the metabolism and the body's ability to absorb nutrients. • Eating disorders, such as anorexia nervosa or bulimia. • Chewing or swallowing problems. People with these disorders may not eat enough. • Having certain conditions, such as: ◦ Inflammatory bowel disease. Inflammation of the intestines makes it difficult for the body to absorb nutrients. ◦ Cancer or AIDS. These diseases can cause a loss of appetite. ◦ Chronic heart failure. This interferes with how the body uses nutrients. ◦ Cystic fibrosis. This disease can make it difficult for the body to absorb nutrients. • Eating a diet that extremely restricts protein, fat, or calorie intake. What are the signs or symptoms? Symptoms of this condition include: • Tiredness (fatigue). • Weakness. • Dizziness. • Fainting. • Weight loss. • Loss of muscle tone and muscle mass. • Poor immune response. • Lack of menstruation. • Poor memory. • Hair loss. • Skin changes. How is this diagnosed? This condition may be diagnosed based on: • Your medical and dietary history. • A physical exam. This may include a measurement of your body mass index. • Blood tests. How is this treated? This condition may be managed with: • Nutrition therapy. This may include working with a dietitian. • Treatment for underlying conditions. People with severe protein-energy malnutrition may need to be treated in a hospital. This may involve receiving nutrition and fluids through an IV. Follow these instructions at home: • Eat a balanced diet. In each meal, include at least one food that is high in protein. Foods that are high in protein include: ◦ Meat. ◦ Poultry. ◦ Fish. ◦ Eggs. ◦ Cheese. ◦ Milk. ◦ Beans. ◦ Nuts. • Eat nutrient-rich foods that are easy to swallow and digest, such as: ◦ Fruit and yogurt smoothies. ◦ Oatmeal with nut butter. ◦ Nutrition supplement drinks. • Try to eat six small meals each day instead of three large meals. • Take vitamin and protein supplements as told by your health care provider or dietitian. • Follow your health care provider's recommendations about exercise and activity. • Keep all follow-up visits. This is important. Contact a health care provider if: • You have increased weakness or fatigue. • You faint. • You are a woman and you stop having your period (menstruating). • You have rapid hair loss. • You have unexpected weight loss. • You have diarrhea. • You have nausea and vomiting. Get help right away if: • You have difficulty breathing. • You have chest pain. These symptoms may represent a serious problem that is an emergency. Do not wait to see if the symptoms will go away. Get medical help right away. Call your local emergency services (911 in the [place] Do not drive yourself to the hospital. Summary • Protein-energy malnutrition is when a person does not eat enough protein, fat, and calories. • Protein-energy malnutrition can lead to severe loss of muscle tissue (muscle wasting). This condition also affects the body's defense system (immune system) and can lead to other health problems. • Talk with your health care provider about treatment for this condition. Effective treatment dependson the underlying cause of the malnutrition. This information is not intended to replace advice given to you by your health care provider. Make sure you discuss any questions you have with your health care provider. Document Revised: 09/25/2021 Document Reviewed: 09/26/2021 [employer] Patient Education © 2023 [employer] Fall Prevention in Hospitals, Adult Staying in the hospital puts you at risk of falling. Falls can cause serious injuries, but they canbe prevented. Make sure you know what puts you at risk for falling and what you and your health care team can do to prevent falls. If you or a loved one falls in the hospital, tell the hospital staff about it. What can increase my risk of falls? Factors that increase your risk of falling in the hospital include: • Being in an unfamiliar environment, especially when using the bathroom at night. • Having surgery or being on bed rest. • Taking many medicines or certain types of medicines, such as sleeping pills. Some medicines can cause confusion, trouble with balance, dizziness, or low blood pressure. • Having tubes in place, such as IVs or catheters. Other risk factors for falls while in the hospital include: • Having trouble with hearing or vision. • Having depression. • Needing to use the toilet frequently. • Having fallen during the past 3 months. What actions can I take to prevent falls? If you or a loved one has to stay in the hospital: • Ask about which fall prevention strategies will be in place. • Do not get up by yourself if you have been asked to call for help when getting up. Asking for help to get up is for your safety, and the staff is there to help you. • Wear non-skid shoes or non-skid slippers. • Get up slowly, and sit at the side of the bed for a few minutes before standing up. • Keep items you need close to you, such as the call button or a phone, so that you do not need to reach for them. • Wear eyeglasses or hearing aids as told by your health care provider. • Have someone stay in the hospital with you or your loved one. • Ask if sleeping pills or other medicines that can cause confusion or dizziness are necessary if they are prescribed to you or a loved one. What does the hospital staff do to help prevent falls? Hospitals have systems in place to prevent falls and accidents, which may include: • Discussing your fall risk and making a personalized fall prevention plan. • Checking in regularly to see if you need help. Some hospitals use video monitoring that allows a staff member to come to you if you need help. • Placing an armband on your wrist or a sign near your room to alert other staff of your needs. • Using an alarm on your hospital bed. This is an alarm that goes off if you get out of bed and forget to call for help. • Keeping the bed in a low and locked position. • Keeping the area around the bed and bathroom well-lit and not cluttered. • Having a staff person stay with you (one-on-one observation), even when you are using the bathroom.This is for your safety. • Using safety equipment, such as: ◦ A belt around your waist. ◦ Walkers, crutches, and other devices for support. ◦ Safety beds, such as low beds, or cushions on the floor next to the bed. What other actions can I take to prevent falls? • Check in regularly with your provider or pharmacist to review all medicines that you take. • Make sure that you have a regular exercise program to stay physically fit. This will help you maintain your balance. • Talk with a physical therapist if recommended by your provider. A physical therapist can help you learn to do exercises to improve movement and strength. • If you are over 65 years old: ◦ Ask your provider if you need a calcium or vitamin D supplement. ◦ Have your eyes and hearing checked every year. ◦ Have your feet checked every year. This information is not intended to replace advice given to you by your health care provider. Make sure you discuss any questions you have with your health care provider. Document Revised: 05/30/2023 Document Reviewed: 05/30/2023 [employer] Patient Education © 2023 [employer] How to Use an Incentive Spirometer An incentive spirometer is a tool that measures how well you are filling your lungs with each breath. Learning to take long, deep breaths using this tool can help you keep your lungs clear and active. This may help to reverse or lessen your chance of developing breathing (pulmonary) problems, especially infection. You may be asked to use a spirometer: • After a surgery. • If you have a lung problem or a history of smoking. • After a long period of time when you have been unable to move or be active. If the spirometer includes an indicator to show the highest number that you have reached, your health care provider or respiratory therapist will help you set a goal. Keep a log of your progress as told by your health care provider. What are the risks? • Breathing too quickly may cause dizziness or cause you to pass out. Take your time so you do not get dizzy or light-headed. • If you are in pain, you may need to take pain medicine before doing incentive spirometry. It is harder to take a deep breath if you are having pain. How to use your incentive spirometer 1. Sit up on the edge of your bed or on a chair. 2. Hold the incentive spirometer so that it is in an upright position. 3. Before you use the spirometer, breathe out normally. 4. Place the mouthpiece in your mouth. Make sure your lips are closed tightly around it. 5. Breathe in slowly and as deeply as you can through your mouth, causing the piston or the ball to rise toward the top of the chamber. 6. Hold your breath for 3–5 seconds, or for as long as possible. • If the spirometer includes a technology coach indicator, use this to guide you in breathing. Slow down your breathing if the indicator goes above the marked areas. 7. Remove the mouthpiece from your mouth and breathe out normally. The piston or ball will return to the bottom of the chamber. 8. Rest for a few seconds, then repeat the steps 10 or more times. • Take your time and take a few normal breaths between deep breaths so that you do not get dizzy or light-headed. • Do this every 1–2 hours when you are awake. 9. If the spirometer includes a goal marker to show the highest number you have reached (best effort),use this as a goal to work toward during each repetition. 10. After each set of 10 deep breaths, cough a few times. This will help to make sure that your lungs are clear. • If you have an incision on your chest or abdomen from surgery, place a pillow or a rolled-up towel firmly against the incision when you cough. This can help to reduce pain while taking deep breaths and coughing. General tips • When you are able to get out of bed: ◦ Walk around often. ◦ Continue to take deep breaths and cough in order to clear your lungs. • Keep using the incentive spirometer until your health care provider says it is okay to stop using it. If you have been in the hospital, you may be told to keep using the spirometer at home. Contact a health care provider if: • You are having difficulty using the spirometer. • You have trouble using the spirometer as often as instructed. • Your pain medicine is not giving enough relief for you to use the spirometer as told. • You have a fever. Get help right away if: • You develop shortness of breath. • You develop a cough with bloody mucus from the lungs. • You have fluid or blood coming from an incision site after you cough. Summary • An incentive spirometer is a tool that can help you learn to take long, deep breaths to keep your lungs clear and active. • You may be asked to use a spirometer after a surgery, if you have a lung problem or a history of smoking, or if you have been inactive for a long period of time. • Use your incentive spirometer as instructed every 1–2 hours while you are awake. • If you have an incision on your chest or abdomen, place a pillow or a rolled-up towel firmly against your incision when you cough. This will help to reduce pain. • Get help right away if you have shortness of breath, you cough up bloody mucus, or blood comes fromyour incision when you cough. This information is not intended to replace advice given to you by your health care provider. Make sure you discuss any questions you have with your health care provider. Document Revised: 12/15/2020 Document Reviewed: 12/15/2020 [employer] Patient Education © 2023 [employer] Percutaneous Nephrostomy, Care After After the procedure, it is common to have: • Soreness where the nephrostomy tube was inserted (tube insertion site). • Drainage with a bit of blood from the tube for the first 24 hours. Follow these instructions at home: Activity • If you were given a sedative during the procedure, it can affect you for several hours. Do not drive or operate machinery until your health care provider says that it is safe. • Do not lift anything that is heavier than 10 lb (4.5 kg), or the limit that you are told, until your health care provider says that it is safe. • Avoid activities that may cause your tube to bend. • Do not take baths, swim, or use a hot tub until your health care provider approves. Ask your healthcare provider if you may take showers. You may only be allowed to take sponge baths. • Cover your bandage (dressing) with a watertight covering if you take a shower. • Return to your normal activities as told by your health care provider. Ask your health care provider what activities are safe for you. Care of the tube insertion site • Follow instructions from your health care provider about how to take care of your tube insertion site. Make sure you: ◦ Wash your hands with soap and water for at least 20 seconds before and after you change your dressing. If soap and water are not available, use hand medical voucher clerk. ◦ Change your dressing as told by your health care provider. Do not pull on your tube while taking off the dressing. ◦ When you change the dressing, wash the skin around the tube, rinse well, and pat the skin dry. • Check the tube insertion area every day for signs of infection. Check for: ◦ Redness, swelling, or pain. ◦ Fluid or blood. ◦ Warmth. ◦ Pus or a bad smell. Care of the nephrostomy tube and drainage bag • When you connect your tube to a drainage bag, make sure there are no kinks in the tubing. Check that your urine is draining freely. You may want to use an elastic bandage to wrap any exposed tubing that goes from the nephrostomy tube to any of the connecting tubes. • At night, connect your tube or the leg bag to a larger bedside drainage bag. • Always keep the tubing, the leg bag, and the bedside drainage bag below the level of your kidney. This ensures that your urine can drain freely. • Empty the drainage bag when it becomes ⅔ full. • Follow instructions from your health care provider about how to empty or change the drainage bag. • Replace the drainage bag and any extension tubing that is connected to your tube every 7 days or astold by your health care provider. Your health care provider will explain how to change the bag andextension tubing. General instructions • Take [id number] and prescription medicines only as told by your health care provider. • Keep all follow-up visits. Your tube will need to be changed every 8–12 weeks. Your health care provider may give you more instructions. Make sure you know what you can and cannot do. Contact a health care provider if: • You have problems with any of the drain valves or tubing. • You have back pain that does not get better with medicine. • You have any signs of infection. • You have a fever or chills. • You make more urine than normal, or it joiner when you urinate. • You make less urine than normal. • You have new blood in your urine. Get help right away if: • You have chest pain or trouble breathing. • Your tube comes out. These symptoms may be an emergency. Get help right away. Call 911. • Do not wait to see if the symptoms will go away. • Do not drive yourself to the hospital. This information is not intended to replace advice given to you by your health care provider. Make sure you discuss any questions you have with your health care provider. Document Revised: 04/14/2023 Document Reviewed: 04/14/2023 [employer] Patient Education © 2023 [employer] Percutaneous Nephrostomy Home Guide Percutaneous nephrostomy is a procedure to insert a tube into your kidney. This is done to help urine leave your body. The nephrostomy tube is inserted into your back and connected to a drainage bag outside your body. Urine collects in the drainage bag. You will need to empty and change the drainage bag. You will also need to care for the area where the tube was inserted (tube insertion site). How to empty the drainage bag Empty the leg bag or bedside drainage bag when it becomes ⅔ full. Also, empty it before you go tosleep. Most of the bags have a drain valve at the bottom. This allows urine to be emptied. Follow these steps: 1. Hold the drainage bag over a toilet or collection container. Use a measuring container if your health care provider told you to measure your urine. 2. Open the drain valve of the bag. Allow urine to drain out. 3. After all the urine has drained, close the drain valve fully. 4. Flush urine down the toilet. If you used a collection container, rinse the container. How to change the dressing around the nephrostomy tube Change your bandage (dressing) and clean your tube insertion site as told by your health care provider. You may need to change the dressing every day for the first 2 weeks. After the first 2 weeks, you may be told to change it twice a week. Supplies needed: • Mild soap and water. • Split gauze pads, 4 x 4 inches (10 x 10 cm). • Gauze pads, 4 x 4 inches (10 x 10 cm). • Paper tape. Follow these steps: 1. Wash hands with soap and water for at least 20 seconds. 2. Gently remove the tape and dressing from around the tube. Do not pull on the tube when you take offthe dressing. Avoid using scissors. These may damage the tube. 3. Wash the skin around the tube with soap and water. Rinse well and pat the skin dry. 4. Check the skin around the drain for signs of infection. Check for: • Redness, swelling, or pain. • More fluid or blood. • Warmth. • Pus or a bad smell. 5. If the drain was stitched (sutured) to the skin, check to make sure the suture is still in place. 6. Place two split gauze pads in and around the tube insertion site. Do not apply ointments or alcoholto the site. 7. Place a gauze pad on top of the split gauze pad. 8. Make sure the tubing rests on the gauze, not the skin. 9. Place tape around each edge of the gauze pad. 10. Secure the tubing. Make sure the tube does not kink or become pinched. 11. Dispose of used supplies in the right way. How to flush the nephrostomy tube Flushing should only be done as told by your health care provider. It is easier to do if a three-way stopcock has been placed. One part of the stopcock connects to your tube, one part connects to thedrainage bag, and one part is covered with a cap. The lever on the stopcock points to the part thatis closed to flow. Normally, it points to the part that is covered with the cap. Supplies needed: • Alcohol wipe. • Syringes pre-filled with a solution for flushing. • Sterile cap. Follow these steps: 1. Move the lever of the three-way stopcock so it points toward the drainage bag. 2. Remove the cap from the stopcock port. 3. Clean the stopcock port with an alcohol wipe. Scrub the port for 5–15 seconds. 4. Screw the tip of the flush syringe into the stopcock port. 5. Over 5–10 seconds, use the syringe plunger to slowly push 5–10 mL, or the amount of flush solution told by your health care provider. If you feel something resist or if it hurts when you push, stop pushing the flush. 6. Remove the syringe from the stopcock port. 7. Move the lever so it points in the direction of the stopcock port. 8. Cover stopcock port with a new sterile cap. 9. Dispose of used supplies in the right way. How to replace the drainage bag Replace the drainage bag, three-way stopcock, and extension tubing as told by your health care provider. Follow these steps: 1. Empty urine from the drainage bag. 2. Gather a new drainage bag, three-way stopcock, and extension tubing. 3. Remove the drainage bag, stopcock, and tubing from the nephrostomy tube. 4. Attach the new drainage bag, stopcock, and tubing. 5. Dispose of the used drainage bag, stopcock, and tubing. General recommendations • When you connect your tube to a drainage bag, make sure there are no kinks in the tubing. You may want to wrap an elastic bandage over the tubing. This will help keep it in place. Make sure there is no tension on the tubing, so it does not get pulled on. • At night, connect your tube or the leg bag to a larger bedside drainage bag. • Always keep the tubing, the leg bag, and the bedside drainage bag below the level of your kidney. • Avoid activities that may cause your tube to bend. • Because of where your tube is, you may need help from a second person to do your dressing changes. • Make sure you always have an extra drainage bag and connecting tubing on hand. Contact a health care provider if: • You have problems with any of the drain valves or tubing. • You have back pain that does not get better with medicine. • You have any signs of infection around your tube insertion site. • You have a fever or chills. • You make more urine than normal, or it joiner when you urinate. • You make less urine than normal. • You have new blood in your urine. Get help right away if: • You have chest pain or trouble breathing. • Your tube comes out. These symptoms may be an emergency. Get help right away. Call 911. • Do not wait to see if the symptoms will go away. • Do not drive yourself to the hospital. This information is not intended to replace advice given to you by your health care provider. Make sure you discuss any questions you have with your health care provider. Document Revised: 04/14/2023 Document Reviewed: 04/14/2023 [employer] Patient Education © 2023 [employer] Percutaneous Nephrostomy Percutaneous nephrostomy is a procedure to insert a flexible tube into the kidney. This is done to help urine leave the body when it cannot leave the kidney in the normal way. Urine is supposed to becarried from the kidneys to the bladder through narrow tubes called ureters. But a ureter can become blocked. This may be because of kidney stones, an infection, a blood clot, or an abnormal growth of cells (tumor). After the procedure, the nephrostomy tube will stay in place. Urine will drain from the kidney intoa bag outside your body. This will help relieve pressure and prevent infection that could damage the kidney. Tell a health care provider about: • Any allergies you have. • All medicines you are taking, including vitamins, herbs, eye drops, creams, and zyxd-srg-cagbvcf medicines. • Any problems you or family members have had with anesthesia. • Any bleeding problems you have. • Any surgeries you have had. • Any medical conditions you have. • Whether you are or may be . What are the risks? Your health care provider will talk with you about risks. These may include: • Infection. • Bleeding. • Allergic reactions to the medicines or dyes used. • Damage to other structures or organs. What happens before the procedure? When to stop eating and drinking Follow instructions from your health care provider about what you may eat and drink. These may include: • 8 hours before your procedure ◦ Stop eating most foods. Do not eat meat, fried foods, or fatty foods. ◦ Eat only light foods, such as toast or crackers. ◦ All liquids are okay except energy drinks and alcohol. • 6 hours before your procedure ◦ Stop eating. ◦ Drink only clear liquids, such as water, clear fruit juice, black coffee, plain tea, and sports drinks. ◦ Do not drink energy drinks or alcohol. • 2 hours before your procedure ◦ Stop drinking all liquids. ◦ You may be allowed to take medicines with small sips of water. If you do not follow your health care provider's instructions, your procedure may be delayed or canceled. Medicines Ask your health care provider about: • Changing or stopping your regular medicines. These include any diabetes medicines or blood thinnersyou take. • Taking medicines such as aspirin and ibuprofen. These medicines can thin your blood. Do not take them unless your health care provider tells you to. • Taking dszu-mdp-ljuipto medicines, vitamins, herbs, and supplements. Tests You may have tests done. These may include: • Blood tests to see how well your kidneys and liver are working. These may also be done to see how well your blood clots. • Urine tests. • Imaging studies, such as ultrasound or CT scan. Surgery safety Ask your health care provider: • How your surgery site will be marked. • What steps will be taken to help prevent infection. These may include: ◦ Removing hair at the surgery site. ◦ Washing skin with a soap that kills germs. ◦ Receiving antibiotics. General instructions • Do not use any products that contain nicotine or tobacco before the procedure. These products include cigarettes, chewing tobacco, and vaping devices, such as e-cigarettes. If you need help quitting,ask your health care provider. • If you will be going home right after the procedure, plan to have a responsible adult: ◦ Take you home from the hospital or clinic. You will not be allowed to drive. ◦ Care for you for the time you are told. What happens during the procedure? • An IV will be inserted into one of your veins. • You may be given: ◦ A sedative. This helps you relax. ◦ Anesthesia. This will: ▪ Numb certain areas of your body. ▪ Make you fall asleep for surgery. • You will be positioned on your abdomen. • A needle will be inserted through your back and guided to your kidney. An imaging method will be used to help guide the needle. It uses X-ray images (fluoroscopy). • A dye will be injected through the needle. X-ray images will be taken of your kidney. • A wire will be passed through the needle. A tool called a dilator will be used to widen the path for the nephrostomy tube. The tube will be inserted over the wire and into your kidney. • The wire will be removed. The tube will be left in your kidney. The tube may be secured to your skin with stitches (sutures). • A bandage (dressing) will be placed on the tube site. • A drainage bag will be attached to the tube. Urine will drain from your kidney to this bag outside your body. The procedure may vary among health care providers and hospitals. What happens after the procedure? • Your blood pressure, heart rate, breathing rate, and blood oxygen level will be monitored until youleave the hospital or clinic. • You will be taught how to care for the tube and drainage bag. • If you were given a sedative during the procedure, it can affect you for several hours. Do not drive or operate machinery until your health care provider says that it is safe. This information is not intended to replace advice given to you by your health care provider. Make sure you discuss any questions you have with your health care provider. Document Revised: 04/14/2023 Document Reviewed: 04/14/2023 [employer] Patient Education 2023 [employer] Anesthesia records * Services, CPDI: PERFORM Event Display: Sedation & Analgesia Record Authored Date: [id number] Patient Care team information Care Team Personnel Name: Stephanie Carbajal Erika Joy Position: Pharmacist Member Role: Pharmacy - Lifetime Name: DO Ortega Amanda Mae Position: Referring DIRECT Member Role: Primary Care Provider Address: [address] [place] [address] [place]: [phone] Care Team Related Persons Name: LAYNE CALLAHAN Insurance Providers Guarantor name: EMERITA Health Plan Information #: 1 Payer: [employer] Member Number: [id number] Policy Number: NA Group Number: [id number] Health Plan Information #: 2 Payer: [facility] Member Number: [id number] Policy Number: NA Group Number: [id number]
--- OUTSIDE RECORDS SUMMARY | 2025-02-12 18:00 | External Medical Summary | Summary of Care ---
Author Name Unknown Organization [facility] Address [address] [place] [facility] [address] Phone [phone] Care Team Providers Care Arch Support Technician Name Role Phone Mahi Ortega DO Primary Care Provider Reason for Visit * Reason Comments Chronic Kidney Disease (CKD) [facility] Encounter Details Date Type Department Care Team (Late st Contact Info) Description 11/26/2024 2:40 PM EST Office Visit Nephrology [address] [place] [address] Ronda Niño MD [address] [place] [address] PERRI (acute kidney injury) ([facility])*; History of kidney stones; Kidney disease, chronic, stage IV (GFR 15-29 ml/min) ([facility]); Acute pyelonephritis; Metabolic acidosis; Hypertensive kidney disease with chronic kidney disease stage IV ([facility]) Allergies Active Allergy Reactions Criticality Noted Date [...] as of this encounter (statuses as of 11/28/2024) Medications Acetaminophen ER 650 MG Oral Tablet [...] Additional Information Patient not taking.Reported on 11/26/2024 Riboflavin 400 MG Oral Tablet TAKE ONE TABLET IN THE MORNING 90 Tablet 1 10/18/19 23 Active Additional Information Patient not taking.Reported on 11/26/2024 Ferrous Gluconate 324 (37.5 Fe) MG Oral [...] Additional Information Patient not taking.Reported on 11/26/2024 Ondansetron 4 MG Oral Tablet Disintegrating (Zofran)Indication s:Nausea without vomiting,Nausea and vomiting, unspecified vomiting type Place 1 Tablet on tongue every 8 hours as needed for Nausea or Vomiting. dissolve on tongue. 90 Tablet 1 04/05/20 Active Loperamide HCl 2 MG Oral Capsule (Imodium) Take 1 Capsule by mouth 4 times a day as needed for Diarrhea. Active Incontinence Supplies Disposable briefs size XL. Use as directed for urinary incontinence. 100 Each 5 10/07/20 Active Incontinence Supplies Poise pads. Use as directed for urinary incontinence. 100 Each 5 10/07/20 Active Nystatin 515128 UNIT/GM External Cream Apply topically to affected area 2 times a day. To affacted area for two weeks. 60 g 2 12/23/19 Active Tamsulosin HCl 0.4 MG Oral Capsule (Flomax) Take 1 Capsule by mouth in the morning. 12/23/19 Active hydrOXYzine HCl 25 MG Oral TabletIndications: Insomnia, unspecified type Take 1 Tablet by mouth every night at bedtime. 90 Tablet 3 03/16/20 Active Vitamin D3 50 MCG (2000 UT) Oral CapsuleIndications :Vitamin D deficiency TAKE ONE CAPSULE BY MOUTH IN THE MORNING Strength: 50 MCG (2000 UT) 90 Capsule 3 04/10/20 Active Additional Information Patient not taking.Reported on 11/26/2024 Midodrine HCl 5 MG Oral Tablet (Proamatine) Take 1 Tablet by mouth in the morning and 1 Tablet at noon and 1 Tablet before bedtime. 270 Tablet 2 04/10/20 Active oxyBUTYnin Chloride 5 MG Oral Tablet (Ditropan) Take 1 Tablet by mouth in the morning. In the morning.. 90 Tablet 2 04/10/20 Active Additional Information Patient not taking.Reported on 11/26/2024 MAGnesium-Oxide 400 (240 Mg) MG Oral Tablet (Magnesium Oxide -Mg Supplement) TAKE ONE TABLET BY MOUTH EVERY DAY 28 Tablet 07/05/20 Active Additional Information Patient not taking.Reported on 11/26/2024 Metoprolol Succinate ER 25 MG Oral Tablet Extended Release 24 Hour (toPROL XL) TAKE ONE TABLET TWICE DAILY 64 Tablet 07/05/20 24 Active Additional Information Patient not taking.Reported on 11/26/2024 Pantoprazole Sodium 40 MG Oral Tablet Delayed Release (Protonix)Indicati ons:Gastroesophage al reflux disease with esophagitis without hemorrhage Take 1 Tablet by mouth in the morning and 1 Tablet before bedtime. 56 Tablet 11 09/26/20 24 Active OXcarbazepine 300 MG Oral Tablet (Trileptal)Indicat ions:Dyslipidemia, goal LDL below 100 TAKE ONE TABLET BY MOUTH TWICE DAILY 180 Tablet 1 09/03/20 Active Additional Information Patient not taking.Reported on 11/26/2024 Atorvastatin Calcium 40 MG Oral Tablet (Lipitor)Indicatio ns:Dyslipidemia, goal LDL below 100 TAKE ONE TABLET BY MOUTH IN THE MORNING 90 Tablet 1 09/02/20 Active Additional Information Patient not taking.Reported on 11/26/2024 BD PosiFlush 0.9 % Intravenous Solution USE DIRECTED FOR tube flushing 10/11/19 Active Amoxicillin-Pot Clavulanate 875-125 MG Oral Tablet (Augmentin) Take 1 Tablet by mouth in the morning and 1 Tablet before bedtime. 10 days . 11/25/19 25 Active documented as of this encounter (statuses as of 11/28/2024) Active Problems Problem Noted Date Diagnosed Date [...] as of this encounter (statuses as of 11/28/2024) Resolved Problems Problem Noted Date Diagnosed Date [...] as of this encounter (statuses as of 11/28/2024) Immunizations Name Administration Dates Next Due Pneumococcal Conjugate Vacc, 13 Valent (Prevnar) 06/05/2019 Pneumococcal Conjugate Vacci ne, 20-valent ([id number]) 11/11/2023 Pneumococcal Polysaccharide PPV23 (Pneumovax) 06/08/2016,03/01/2011 Season [...] Sign Reading Time Taken Comments Blood Pressure 110/79 11/26/2024 2:45 PM EST Pulse 105 11/26/2024 2:45 PM EST Temperature 36.1 °C (97 °F) 11/26/2024 2:45 PM EST Respiratory Rate 18 11/26/2024 2:45 PM EST Oxygen Saturation 105% 11/26/2024 2:45 PM EST Inhaled Oxygen Concentration - - Weight 76.7 kg (169 lb) 11/26/2024 2:45 PM EST Height - - Body Mass Index 34.13 12/06/2021 10:37 PM EST documented in this encounter Functional Status * Are you deaf or do you have serious difficulty hearing? Answer Date of Assessment Author No 12/06/2021 10:37 PM EST Yovani Alonso RN * Are you blind or do you have serious difficulty seeing, even when wearing glasses? Answer Date of Assessment Author No 12/06/2021 10:37 PM EST Yovani Alonso RN * Do you have serious difficulty walking or climbing stairs? (5 years old or older) Answer Date of Assessment Author Yes 12/06/2021 10:37 PM EST Yovani Alonso RN * Do you have difficulty dressing [...] 10:37 PM EST Yovani Alonso RN documented as of this encounter Mental Status * Because of a physical, mental, or emotional condition, do you have serious difficulty concentrating, remembering, or making decisions? (5 years old or older) Answer Entry Date Author Yes 12/06/2021 10:37 PM EST Yovani Alonso RN documented in this encounter Patient Instructions * Patient Instructions* Ronda Niño MD - 11/26/2024 3:08 PM EST -will have you get labs when you see Dr Ortega in a few days -no medication changes today -if you can't keep food down or get fevers or have other worrisome symptoms, go to hospital -avoid medicines like aleve, advil, ibuprofen, aspirin more than 81 mg daily and other NSAIDS whichare not good for kidney patients. Take only tylenol (acetaminophen) up to 2000 mg daily as needed for pain or as directed by your primary care provider. documented in this encounter Progress Notes * Ronda Niño MD - 11/26/2024 2:58 PM EST NEPHROLOGY CLINIC NOTE Nephrology [address] [place] [address] 11/26/2024, 2:58 PM Patient Name: Elise Nesbitt BACKGROUND: 69 year old female presents for close in f/u of CKDG3b with albuminuria in the setting of recurring PERRI, nephrolithiasis w/ worsening status/ongoing obstruction/fs/p nephrostomy tube. Just d/c from [facility] 11/19-11/25/24 for complicated UTI w/ PERRI on CKD, pyelonephrtis, adverse effect of PCN;sent to [facility] for clogged/nonfunctioning L nephrostomy tubes. PMH includes Colon cancer diagnosed 2010 and status post total colectomy, class 3 obesity, ambulatory dysfunction, hypertension since about 2013 and w/ atypical hx of urgency as follows; remote history of kidney stones with 7 past interventions chronic urinary incontinence not actively following with Urology at this time. She was hospitalizedAugust 2015 with multifactorial respiratory distress, hypertension, renal insufficiency and suffered presumptive catecholamine mediated cardiomyopathy according to cardiology. Last echocardiogram November 2016 with EF greater than 70% and May 2016 cardiac catheterization with unremarkable coronaries and no evidence of obstructive disease. No family history of renal disease. Has L renal cyst and chronic L flank pain. In 2011, a large cyst in the left kidney which was ultimately drained as no other source for her pain could be discovered. Also w/ remote hx of open L pyeloplasty apparently prior to 2002 per urology 2014 note. No stone intervention or episode Fall 2015 admitted [facility] for PERRI, hypotension, elevated troponin w/ normal cardiac cath; this was her last hospital stay. Also seen in ER 09/2017 [facility] for LLE cellulitis, treated w/ keflex and bactrim. States she falls frequently. Endorses vertigo sx at times. Has chronic back and leg pain >> use to take aleve every day which she started b/c gabapentindoes not help. Has followed w/ pain clinic in past; was referred to PT in 11/2017 but states "they couldn't come" or "I can't do PT b/c knee cap is broke" Also chronic depression after her daughter killed in MVA; granddaughter with surgeries after this MVA. She struggles to eat and drink. She is drinking "a bottle and a half a day"- approx 20 ounces max. Patient had several hospitalizations: 08/26/2020: PNA with fall with fracture and PERRI. Creatine peaked at 2.49. improved with d/c lisinopril and IV fluids. ,09/03/2020: Fall, Sepsis, UTI, PERRI-creatinine peaked in 6's requiring short term dialysis 09/17/2020: fall, hypotension, fracture of 7-11 left ribs and rupture of renal cysts-transferred to [place]-does not remember this.,10/04/2020: pre-renal PERRI with n/v Hyperkalemia. COVID test positive. CT during this stay showed improved hemorhage from cyst. : PERRI event Follows with urology Dr. Clancy for cyst, stones and renal masses- recent stent removal early nd reports need for upcoming surgery for drainage. Frequent follow up next appt in 1 [facility] - [facility] scan scheduled in upcoming months Does not drink much; hates taste of water. Drink cups of tea about 10 oz daily x 3 and 10 oz coffee. Rare soda use. TODAY 01/12/2024: stent taken out about 4-6 wks back. For [facility] 01/26 nephrostomy tube placement. Saw urology 12/18 and noted to have ongoing jolanta santiago pt declines another stent Not sure if dysuria right now but has ongoing/ chronic L flank pain, some suprapubic pain. No f/c. Acc by daughter and caregiver today TODAY 11/26/2024: just d/c from [facility] last evening; on po abtx but can't tolerate these .> if she takes augmentin and has 10 day coiurse in front of her she vomits. Sent out on last Tuesday to [facility] from [facility] and lifeflighted from there to [facility] d/t nephrostomy tube dysfucntion>>her nephrostomy tube fell out but she had no way to get to [facility] to replace it so instead to hospital Not taking any meds currently b/c cannot keep anything down. Hardly eating >> at some peas and baby cereal yesterday; tried saltines, dry toast but not tolerating. Having 4-5 BM daily C/o low L flank pain radiating to her back -- feells to her like a stone. I have her d/c instructions today but no access currently to d/c summary from [facility]. Acc by daughter? Caregiver? Has HHN as well. REVIEW OF SYSTEMS General: +fatigue- no F but some chills , ? rigors, No change in weight Head: No significant headache Respiratory: No wheezing, +shortness of breath with exertion w/ walking to bathroom Cardiovascular:No chest pain, No palpitations Gastrointestinal: No nausea, vomiting; as above diarrhea + L flank pain, radiates to L groin Urinary: No dysuira, No hematuria. No flank pain + Frequency Musculoskeletal: +edema ankles Skin: No itching No presyncopal or orthostatic symptoms; no falls Current Outpatient Medications Medication Sig Dispense Refill oxygen GAS Use as directed 2 L/min(Oxygen) as needed for Shortness of Breath. Use as needed with activity Ondansetron 4 MG Oral Tablet Disintegrating (Zofran) Place 1 Tablet on tongue every 8 hours as needed for Nausea or Vomiting. dissolve on tongue. 90 Tablet 1 Midodrine HCl 5 MG Oral Tablet (Proamatine) Take 1 Tablet by mouth in the morning and 1 Tablet at noon and 1 Tablet before bedtime. 270 Tablet 2 Pantoprazole Sodium 40 MG Oral Tablet Delayed Release (Protonix) Take 1 Tablet by mouth in the morning and 1 Tablet before bedtime. 56 Tablet 11 Amoxicillin-Pot Clavulanate 875-125 MG Oral Tablet (Augmentin) Take 1 Tablet by mouth in the morning and 1 Tablet before bedtime. 10 days . Acetaminophen ER 650 MG Oral Tablet Extended Release Take 1 Tablet by mouth every 8 hours as needed(take one tablet for knee pain up to 4 times daily). (Patient not taking: Reported on 11/26/2024) OneTouch Verio In Vitro Strip (Glucose Blood) Test once daily Dx E11.9 100 Strip 5 Ventolin HFA 108 (90 Base) MCG/ACT Inhalation Aerosol Solution Inhale by mouth 2 Puffs every 4 hours as needed for Cough or Shortness of Breath. (Patient not taking: Reported on 11/26/2024) 18 g 5 Riboflavin 400 MG Oral Tablet TAKE ONE TABLET IN THE MORNING (Patient not taking: Reported on 11/26/2024) 90 Tablet 1 Ferrous Gluconate 324 (37.5 Fe) MG Oral Tablet Take 1 Tablet by mouth daily with breakfast. (Patient not taking: Reported on 01/12/2024) Folic Acid 1 MG Oral Tablet Take 1 Tablet by mouth in the morning. (Patient not taking: Reported on10/30/2024) Advanced Probiotic 10 Oral Capsule 625 mg. (Patient not taking: Reported on 11/26/2024) Cyanocobalamin 100 MCG Oral Tablet Take 1 Tablet by mouth in the morning. (Patient not taking: Reported on 11/26/2024) 90 Tablet 1 Loperamide HCl 2 MG Oral Capsule (Imodium) Take 1 Capsule by mouth 4 times a day as needed for Diarrhea. (Patient not taking: Reported on 11/26/2024) Incontinence Supplies Disposable briefs size XL. Use as directed for urinary incontinence. 100 Each5 Incontinence Supplies Poise pads. Use as directed for urinary incontinence. 100 Each 5 Nystatin 550502 UNIT/GM External Cream Apply topically to affected area 2 times a day. To affacted area for two weeks. 60 g 2 Tamsulosin HCl 0.4 MG Oral Capsule (Flomax) Take 1 Capsule by mouth in the morning. (Patient not taking: Reported on 11/26/2024) hydrOXYzine HCl 25 MG Oral Tablet Take 1 Tablet by mouth every night at bedtime. 90 Tablet 3 Vitamin D3 50 MCG (2000 UT) Oral Capsule TAKE ONE CAPSULE BY MOUTH IN THE MORNING Strength: 50 MCG (2000 UT) (Patient not taking: Reported on 11/26/2024) 90 Capsule 3 oxyBUTYnin Chloride 5 MG Oral Tablet (Ditropan) Take 1 Tablet by mouth in the morning. In the morning.. (Patient not taking: Reported on 11/26/2024) 90 Tablet 2 MAGnesium-Oxide 400 (240 Mg) MG Oral Tablet (Magnesium Oxide -Mg Supplement) TAKE ONE TABLET BY MOUTH EVERY DAY (Patient not taking: Reported on 11/26/2024) 28 Tablet 11 Metoprolol Succinate ER 25 MG Oral Tablet Extended Release 24 Hour (toPROL XL) TAKE ONE TABLET TWICE DAILY (Patient not taking: Reported on 11/26/2024) 64 Tablet 11 OXcarbazepine 300 MG Oral Tablet (Trileptal) TAKE ONE TABLET BY MOUTH TWICE DAILY (Patient not taking: Reported on 11/26/2024) 180 Tablet 1 Atorvastatin Calcium 40 MG Oral Tablet (Lipitor) TAKE ONE TABLET BY MOUTH IN THE MORNING (Patient not taking: Reported on 11/26/2024) 90 Tablet 1 BD PosiFlush 0.9 % Intravenous Solution USE DIRECTED FOR tube flushing No current facility-administered medications for this visit. [...] Salicylates Edema Other Eyes, lips Salicylates Tramadol PHYSICAL EXAMINATION: BP Readings from Last 6 Encounters: 11/26/24 110/79 01/12/24 101/69 01/03/24 113/78 12/27/23 106/64 11/11/23 118/74 04/27/23 118/70 Wt Readings from Last 6 Encounters: 11/26/24 76.7 kg (169 lb) 01/12/24 73.9 kg (163 lb) 01/03/24 72.6 kg (160 lb) 12/27/23 74.4 kg (164 lb 1.6 oz) 11/11/23 75.3 kg (166 lb) 04/27/23 77.7 kg (171 lb 6.4 oz) Pulse Readings from Last 6 Encounters: 11/26/24 105 01/12/24 77 01/03/24 73 12/27/23 84 11/11/23 82 04/27/23 112 NAD, oriented x 3, sitting slumped in w/c, obese, clearly tired/feels unwell Normocephalic, atraumatic, eomi nonicteric sclerae MMM Supple neck RRR w/o m/g/r; no edema CTAB w/ reduced air mvt NT abd, +BS, soft; L nephrostomy No cyanosis or clubbing No rash No tremor, focal or global weakness; fluent speech, family member helps w/ hx LABS: Recent Labs Units 01/12/24 1558 01/03/24 1337 11/11/23 1210 04/27/23 1226 SODIUM - [facility] mmol/L 140 142 141 143 POTASSIUM - [facility] mmol/L 4.2 4.1 4.5 4.6 CHLORIDE - [facility] mmol/L 110* 111* 112* 111* CO2 - [facility] mmol/L 15* 16* 17* 19* ESTIMATED GLOMERULAR FILTRATION RATE - [facility] mL/min 20* 18* 20* 36* BUN - [facility] mg/dL 26* 28* 27* 10 CREATININE - [facility] mg/dL 2.6* 2.7* 2.5* 1.6* Recent Labs Units 01/12/24 1558 11/11/23 1210 04/27/23 1226 04/05/23 1014 12/10/22 1215 HGB g/dL 11.2* 10.8* 9.4* 12.5 10.6* FERRITIN - [facility] ng/mL -- 99 -- -- 103 TRANSFERRIN SATURATION PERCENT - [facility] % -- 21 -- -- 22 Recent Labs Units 01/12/24 1558 01/03/24 1337 11/11/23 1210 04/27/23 1226 04/05/23 1014 12/10/22 1215 CALCIUM - [facility] mg/dL 9.7 10.0 9.8 9.7 < > -- PHOSPHORUS - [facility] mg/dL -- -- 3.7 -- -- -- 25-HYDROXY VITAMIN D - [facility] ng/mL -- -- 45 -- -- 43 PTH - [facility] pg/mL -- -- 43 -- -- -- < > = values in this interval not displayed. Recent Labs Units 11/11/23 1210 04/05/23 1014 12/10/22 1215 HEMOGLOBIN A1C - [facility] % 5.6 4.8 5.2 Recent Labs Units 04/05/23 1014 12/10/22 1215 ALBUMIN / CREATININE RATIO, URINE - [facility] mg/g Creat 866* 647* Recent Labs Units 01/12/24 1558 04/27/23 1226 04/05/23 1014 02/02/23 0000 12/10/22 1219 CLARITY, URINE - [facility] Cloudy* Slightly Cloudy* Cloudy* Cloudy Cloudy* GLUCOSE, URINE - [facility] mg/dL Negative Negative 50* Negative Negative BILIRUBIN, URINE - [facility] Negative Negative Negative Negative Negative KETONE, URINE - [facility] mg/dL Negative Negative Negative Negative Negative SPECIFIC GRAVITY, URINE - [facility] 1.021 1.014 1.021 1.025 1.016 BLOOD, URINE - [facility] Large* Small* Moderate* Large Small* PH, URINE - [facility] Units 6.0 6.5 6.0 6.0 6.0 PROTEIN, URINE - [facility] mg/dL 100* 100* >300* >=300 100* UROBILINOGEN, URINE - [facility] mg/dL Normal Normal Normal 0.2 Normal NITRITE, URINE - [facility] Negative Negative Negative Negative Negative ESTERASE, URINE - [facility] Large* Large* Large* Large Large* BACTERIA, URINE - [facility] /HPF 0-25 51-100* 26-50* -- 51-100* WBC, URINE - [facility] /HPF 50+* 50+* 50+* -- 50+* RBC, URINE - [facility] /HPF 50+* 10-19* 50+* -- 30-49* ASSESSMENT AND PLAN: PERRI (acute kidney injury) ([facility]) (Primary) - NEPHROLOGY FOLLOW UP APPT (DEPARTMENT USE ONLY); Future; Expected date: 12/24/2024 History of kidney stones Kidney disease, chronic, stage IV (GFR 15-29 ml/min) ([facility]) Acute pyelonephritis Metabolic acidosis Hypertensive kidney disease with chronic kidney disease stage IV ([facility]) H/o PERRI in pt whose bseline eGFR is 18-20; most recent labs available are from 01/2024 -update labs at upcoming appt with PCP -would have very low threshold here for ER reeval if unable to tolerate po and/or keep meds down -emphasixed importance of taking abtx as rx'd; ok to hold other medications for BP at least and encourage taking flomax; would also try not to stop/slow trileptal -ok to hold midodrine for now Push fluid as tolerated; This feels like a stone per pt and sx certainly compatible w/ one >ocnt to push fluid Chronic metabolic acidosis related to chronic diarrhea amonth other issues -needs updated labs and when acute issues settle could consider sodium bicarb Patient Instructions -will have you get labs when you see Dr Ortega in a few days -no medication changes today -if you can't keep food down or get fevers or have other worrisome symptoms, go to hospital -avoid medicines like aleve, advil, ibuprofen, aspirin more than 81 mg daily and other NSAIDS whichare not good for kidney patients. Take only tylenol (acetaminophen) up to 2000 mg daily as needed for pain or as directed by your primary care provider. Ronda Niño MD Nephrology [address] [place] [address] CC: REF: MAHI ORTEGA [address] [place] [address] [place] [address] (office) [phone] (fax) PCP: MAHI ORTEGA [address] [place] [address] [place] [address] [phone] This chart was completed in part utilizing [employer] Voice Recognition Software. Randomword insertions, pronoun errors, and incomplete sentences are an occasional consequence of this system due to software limitations, and ambient noise. Any questions or concerns about the content, text, or information contained within the body of this dictation should be directly addressed to the provider for clarification. documented in this encounter Nursing Notes * Margarette Fitzgerald RN - 11/26/2024 2:46 PM EST Follow up visit today. . Pt states her nephrostomy tube bacame dislodged one week ago. Was life flighted from [facility] to [facility] for treatment where she was admitted for 1 week. Poor appetite. Not taking meds. Is currently on antibiotic. child caregiver private home went to get Discharge papers from [place]. documented in this encounter Plan of Treatment Upcoming Encounters Date Type Department Care Team (Late st Contact Info) Description 12/04/2024 1:10 PM EST Office Visit Family [address] [place] [phone] Mahi Ortega [address] [place] [address] 01/23/2025 10:30 AM EDT Office Visit [address] [place] [phone] Mahi Ortega [address] [place] [address] 02/25/2025 2:00 PM EDT Office Visit Nephrology [address] [place] [address] Maribel Orta PA-C [address] [place] [id number] 05/14/2025 10:30 AM EDT Office Visit Cardiology [address] [place] [address] Francisco Javier Mancilla PA-C [address] [place] [address] Health Maintenance Due Date Last Done Comments [...] 10/17/2020, Additional history exists Phosphate 11/11/2024 11/11/2023, 0 03/2023, 05/07/2022, Additional history exists Mammogram 11/24/2024 11/24/2023, 12/09, 06/14/2019, Additional history exists Hgb 01/11/2025 01/12/2024, 11/2023, 04/27/2023, Additional history exists Nephrology Referral 11/26/2025 11/26/2024 O2 ASSESSMENT COMPLETED IN PAST YEAR FOR COPD 11/26/2025 11/26/2024 Lipid Panel 11/11/2028 11/11/2023, 030 12/2022, 08/21/2021, Additional history exists RETIRED - [...] as of this encounter Visit Diagnoses Diagnosis PERRI (acute kidney injury) (HCC)- Primary Acute kidney failure, unspecified History of kidney stones Personal history of urinary calculi Kidney disease, chronic, stage IV (GFR 15-29 ml/min) (HCC) Chronic kidney disease, Stage IV (severe) Acute pyelonephritis Acute pyelonephritis without lesion of renal medullary necrosis Metabolic acidosis Acidosis Hypertensive kidney disease with chronic kidney disease stage IV (HCC) Unspecified hypertensive kidney disease with chronic kidney disease stage I through stage IV, or unspecified documented in this encounter Advance Directives * [...] Nesbitt Spouse Health Care Agent Care Teams Arch Support Technician Relationship Specialty Start Date End Date Mahi Ortega DO [address] [place] [address] [place] [id number] PCP - General Internal Medicine 07/29/20 documented as of this encounter
--- OUTSIDE RECORDS SUMMARY | 2025-02-12 18:01 | External Medical Summary | Summary of Care ---
Author Name Unknown Organization [facility] Address [address] [place] [address] Phone [phone] Care Team Providers Care Painter Mirror Name Role Phone Lo Chand DO Primary Care Provider [phone] Reason for Visit * Reason Comments Ret[place]al [facility] [place] [facility] [place] Encounter Details Date Type Department Care Team (Late st Contact Info) Description 11/19/2024 6:40 PM EST Documentation [facility] [place] [address] [place] [address] 2, [facility] [address] [place] [address] Pyelonephritis* Allergies Active Allergy Reactions Criticality Noted Date [...] as of this encounter (statuses as of 11/20/2024) Medications Acetaminophen ER 650 MG Oral Tablet [...] long-term current use of insulin ([facility]) Test once daily Dx E11.9 100 Strip 01/05/20 22 Active Ventolin HFA 108 (90 Base) MCG/ACT Inhalation Aerosol SolutionIndication s:COPD, group D, by GOLD 2017 classification ([facility]) Inhale by mouth 2 Puffs every 4 [...] 100 Each 5 10/07/20 23 Active Nystatin 533610 UNIT/GM External Cream Apply topically to affected [...] as of this encounter (statuses as of 11/20/2024) Active Problems Problem Noted Date Diagnosed Date [...] as of this encounter (statuses as of 11/20/2024) Resolved Problems Problem Noted Date Diagnosed Date [...] as of this encounter (statuses as of 11/20/2024) Immunizations Name Administration Dates Next Due Pneumococcal Conjugate Vacc, 13 Valent (Prevnar) 06/05/2019 Pneumococcal Conjugate Vacci ne, 20-valent ([id number]) 11/11/2023 Pneumococcal Polysaccharide PPV23 (Pneumovax) 06/08/2016,03/01/2011 Season [...] No 10/30/2024 Does the household have a up health systemr source of income? (Household - for ages [...] documented in this encounter Progress Notes * Silvana Meredith RN - 11/20/2024 7:16 AM EST MEDICARE AMBULANCE INFORMATION SHEET Patient Admitted as an Inpatient: yes Certifying Physician/Ordering Service:[facility] [place] - Mumtaz Griffin D.O. [facility] [address] [place] [address] Point of Employment Adjudicator (zip code required): [facility] - [address] [facility] [address]; [place] [address] Destination (Specify Name/Address): [address] ; [place] [address] Patient transported to nearest facility (capable of mgmt for Pt's condition): YES Total number of Loaded Miles: 72.5 miles Mode of Transport: Air Completed by: Silvana Meredith RN documented in this encounter Plan of Treatment Upcoming Encounters Date Type Department Care Team (Late st Contact Info) Description 11/26/2024 2:40 PM EST Office Visit Nephrology [address] [place] [address] Ronda Niño MD [address] [place] [address] 01/23/2025 10:30 AM EDT Office Visit Family Medicine [address] [place] [phone] [address] [place] [address] 05/14/2025 10:30 AM EDT Office Visit Cardiology [address] [place] [address] Francisco Javier Mancilla PA-C [address] [place] [address] Health Maintenance Due Date Last Done Comments [...] 06/14/2019, Additional history exists Hgb 01/11/2025 01/12/2024, 020 11/2023, 04/27/2023, Additional history exists Nephrology Referral [...] as of this encounter Visit Diagnoses Diagnosis Pyelonephritis- Primary Pyelonephritis, unspecified documented in this encounter Advance Directives [...] Delicia Spouse Health Care Agent Care Teams Painter Mirror Relationship Specialty Start Date End Date Lo Chand DO [address] [place] [address] [place] [id number] PCP - General Internal Medicine 07/29/20 documented as of this encounter
--- OUTSIDE RECORDS SUMMARY | 2025-02-12 18:01 | External Medical Summary | Summary of Care ---
Author Name Unknown Organization [facility] Address [address] [place] [address] Phone [phone] Care Team Providers Care Medical Officer Psychiatry Name Role Phone Lo Chand DO Primary Care Provider [phone] Reason for Visit * Reason Comments Retrieval [facility] ED to [facility] [place] * Auth/Cert Specialty Diagnoses / Procedures Referred By Peggy t [email or web address] [address] [place] [address] Referral ID Status Reason Start Date Expiration Date Visits Re quested Visits Authorized [id number] Encounter Details Date Type Department Care Team (Late st Contact Info) Description 11/19/2024 6:40 PM EST [facility]ation [email or web address] [address] [place] [address] 2, [email or web address] [address] [place] [address] Pyelonephritis* Allergies Active Allergy Reactions Criticality Noted [...] as of this encounter (statuses as of 11/21/2024) Medications Acetaminophen ER 650 MG Oral Tablet [...] disease, without long-term current use of insulin ([facility]) Test once daily Dx E11.9 100 Strip 5 01/05/20 22 Active Ventolin HFA 108 (90 Base) MCG/ACT Inhalation Aerosol SolutionIndication s:COPD, group D, by GOLD 2017 classification ([facility]) Inhale by mouth 2 Puffs every 4 [...] for urinary incontinence. 100 Each 10/07/20 Active Nystatin 372083 UNIT/GM External Cream Apply topically to affected [...] as of this encounter (statuses as of 11/21/2024) Active Problems Problem Noted Date Diagnosed Date [...] as of this encounter (statuses as of 11/21/2024) Resolved Problems Problem Noted Date Diagnosed Date [...] as of this encounter (statuses as of 11/21/2024) Immunizations Name Administration Dates Next Due Pneumococcal Conjugate Vacc, 13 Valent (Prevnar) 06/05/2019 Pneumococcal Conjugate Vacci ne, 20-valent ([id number]) 11/11/2023 Pneumococcal Polysaccharide PPV23 (Pneumovax) 06/08/2016,03/01/2011 Season [...] Admitted as an Inpatient: yes Certifying Physician/Ordering Service:[facility] [place] - Mumtaz Griffin D.O. [facility] [address] [place] [address] Point of Surgical Product Sales Consultant (zip code required): Hospital - [facility] - [address] [place] [address] E; [place] [address] Destination (Specify Name/Address): [facility] - [address] [place] [address] [place] [address] Patient transported to nearest facility (capable of mgmt for Pt's condition): YES Total number of Loaded Miles: 72.5 miles Mode of Transport: Air Completed by: Silvana Meredith RN documented in this encounter Plan of Treatment Upcoming Encounters Date Type Department Care Team (Late st Contact Info) Description 11/26/2024 2:40 PM EST Office Visit Nephrology [address] [place] [address] Ronda Niño MD [address] [facility] [place] [address] 01/23/2025 10:30 AM EDT Office Visit Family Medicine [address] [place] [phone] Lo [address] [place] [address] 05/14/2025 10:30 AM EDT Office Visit Cardiology [address] [place] [address] Francisco Javier Mancilla PA-C [address] [place] [address] Health Maintenance Due Date Last Done Comments [...] 07/07/2020, Additional history exists HbA1c 05/11/2024 11/11/2023, 2 04/2023, 12/10/2022, Additional history exists COVID-19 Vaccine ( season) 2024 03/05/2021, 02/06/2021 Influenza Vaccine (FLU shot) (#1) 2024 08/21/2021, 08/21/2021, 06/17/2020, Additional history exists GFR 07/13/2024 01/12/2024, 2 03/2024, 11/11/2023, Additional history exists PTH 11/11/2024 11/11/2023, [...] Rubinmariel Spouse Health Care Agent Care Teams Medical Officer Psychiatry Relationship Specialty Start Date End Date Lo Chand DO [address] [place] [address] [place] [phone] PCP - General Internal Medicine 07/29/20 documented as of this encounter
[2025-02-12] MEDS: MIDODRINE HCL 2.5 MG TAB PO SCH (21:13)
[2025-02-12] MEDS: DOXYCYCLINE HYCLATE 100 MG CAP PO SCH (21:13)
[2025-02-12] MEDS: OXcarbazepine 150 MG TABLET PO SCH (21:13)
[2025-02-12] MEDS: PANTOprazole 40 MG TAB PO SCH (21:14)
[2025-02-12] MEDS: METOPROLOL SUCC 25MG EXT REL TAB PO SCH (21:14)
[2025-02-12] MEDS: hydrOXYzine HCl 25 MG TAB PO SCH (21:14)
[2025-02-13] LABS: A calco-baum cmplx NotReported Not Detected (NotDetected); Bact fragilis Not Reported Not Detected (NotDetected); Blood Culture Id Panel See PCR Comment (NotDetected); C auris Not Reported Not Detected (NotDetected); CTX-M Resistant Gene Not Detected (NotDetected); Calbicans Not Reported Not Detected (NotDetected); Candida glabrata Not Reported Not Detected (NotDetected); Candida krusei Not Reported Not Detected (NotDetected); Cneoformans/gatti Not Reported Not Detected (NotDetected); Cparapsilosis Not Reported Not Detected (NotDetected); Ctropicalis Not Reported Not Detected (NotDetected); E cloacae compx Not Reported Not Detected (NotDetected); Efaecalis Not Reported Not Detected (NotDetected); Efaecium Not Reported Not Detected (NotDetected); Enterobacterales DETECTED (NotDetected); Enterobacterales Not Reported DETECTED (NotDetected); Escherichia coli Not Reported DETECTED (NotDetected); H influenzae Not Reported Not Detected (NotDetected); IMP Resistant Gene Not Detected (NotDetected); K aerogenes Not Reported Not Detected (NotDetected); KPC Resistant Gene Not Detected (NotDetected); Koxytoca Not Reported Not Detected (NotDetected); Kpneumoniae grp Not Reported Not Detected (NotDetected); Lmonocyt Not Reported Not Detected (NotDetected); N meningitidis Not Reported Not Detected (NotDetected); NDM Resistant Gene Not Detected (NotDetected); OXA 48 Like Resistant Gene Not Detected (NotDetected); P aeruginosa Not Reported Not Detected (NotDetected); Proteus spp Not Reported Not Detected (NotDetected); Salmonella spp Not Reported Not Detected (NotDetected); Staph lugdunensis Not Reported Not Detected (NotDetected); Staph spp. Not Reported Not Detected (NotDetected); Staphaureus Not Reported Not Detected (NotDetected); Staphepi Not Reported Not Detected (NotDetected); Stenmaltophilia Not Reported Not Detected (NotDetected); Strep agal(GrpB) Not Reported Not Detected (NotDetected); Strep pneum Not Reported Not Detected (NotDetected); Strep pyog (GrpA) Not Reported Not Detected (NotDetected); Strep spp Not Reported Not Detected (NotDetected); VIM Resistant Gene Not Detected (NotDetected); mcr-1 Colistin Resistant Gene Not Detected (NotDetected)
[2025-02-13 06:32] LABS: Appearance Urine Cloudy (Clear); Bacteria Urine Automated None Seen (None Seen); Bilirubin Urine Negative (Negative); Blood Urine 2+ (Negative); Color Urine Yellow; Epithelial Cell Urine Auto 0-2 /hpf (0-2); Glucose Urine UA Negative (Negative); Ketones Urine Negative (Negative); Leukocyte Esterase Urine 3+ (Negative); Nitrite Urine Negative (Negative); Protein Urine 3+ (Negative); Urobilinogen Urine Negative (Negative); WBC Urine Automated >50 /hpf (0-5)
[2025-02-13 06:45] LABS: Calcium 8.7 mg/dl (8.6-10.3); Magnesium 2.2 mg/dl (1.7-2.4); Potassium 4.4 mmol/L (3.5-5.1)
[2025-02-13 06:51] LABS: BUN Creatinine Ratio 12.4 (10-20); Creatinine Clr Calc Pharmacy 21.6 ml/min
[2025-02-13 06:53] LABS: Basophils # (auto) 0.04 K/uL (0.00-0.20); Basophils % (auto) 0.4 %; Eosinophils # (auto) 0.19 K/uL (0.00-0.50); Eosinophils % (auto) 1.9 %; Hematocrit (blood only) 30.5 % (37.0-47.0); Hemoglobin 9.5 g/dl (12.0-16.0); Immature Granulocytes # (auto) 0.03 K/uL (0.01-0.20); Immature Granulocytes % (auto) 0.3 %; Lymphocytes # (auto) 1.51 K/uL (1.20-3.40); Lymphocytes % (auto) 14.9 %; Mean Corpuscular Hgb Conc 31.1 g/dL (32.0-36.0); Mean Platelet Volume 10.4 fL (9.4-12.4); Monocytes # (auto) 0.98 K/uL (0.11-0.59); Monocytes % (auto) 9.6 %; Neutrophils # (auto) 7.41 K/uL (1.40-6.50); Neutrophils % (auto) 72.9 %; Platelet Count 187 K/uL (130-400); RDW Coefficient of Variation 13.3 % (11.5-14.5); RDW Standard Deviation 45.6 fL (36.4-46.3); Red Blood Count 3.28 M/uL (4.20-5.40); White Blood Count 10.16 K/ul (4.8-10.8)
[2025-02-13 07:53] LABS: Estimated Average Glucose 108 mg/dl; Hemoglobin A1C 5.4 % (4.5-5.6)
[2025-02-13] MEDS: MAGNESIUM OXIDE 400 MG TAB PO SCH (08:40)
[2025-02-13] MEDS: oxyBUTYnin chloride 5 MG TAB PO SCH (08:41)
[2025-02-13] MEDS: TAMSULOSIN HCL 0.4 MG CAP PO SCH (08:41)
[2025-02-13] MEDS: ATORVASTATIN 40 MG TAB PO SCH (08:41)
--- NOTE | 2025-02-13 09:59 | Cardiology Progress Note ---
Date of Service February 13, 2025 Assessment & Plan (1) Sepsis: Plan: -E. 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 Patient unable to take AM medications, subsequently developing tachypalpitations with probable adenosine responsive SVT observed in the ER. High-sensitivity troponin I minimally elevated (5.7 -> 23.0 -> 21.1 pg/mL) as expected given infection, CKD, tachyarrhythmia. EKG without acute change. Resting echocardiography with normal wall motion, EF 60 to 65%. Hypomagnesemia resolved. Potassium normal. Kidney function improved. Recent TSH normal as an outpatient on 01/23/2025. Recommendations: * Treatment of underlying infectious process as per Hospitalist Service * Continue metoprolol succinate 25 mg twice a day * Aspirin allergy noted * Please contact with any cardiology questions or concerns. Admission and Anticipated Discharge Date Admission Date: February 12, 2025 Supervising Physician Co-Signing Physician Notes Attending Attestation: Case reviewed with the advanced practitioner. I have personally performed a history and physical examination on the patient. I have reviewed the advanced practitioner's documentation on the date of service referenced in note, and I agree with, and take responsibility for the plan of care. Subjective: Sinus rhythm in 70s noted. No additional sinus tachycardia or SVT. Subjective palpitation improved. Data: Telemetry reviewed revealing narrow complex tachycardia 154 bpm when patient arrived today emergency department with noted abrupt decrease in heart rate at 11:16 AM. Findings consistent with supraventricular tachycardia with improvement post adenosine. Impression/ Plan: Continue antibiotics. Urology input noted and appreciated. Continue metoprolol at current dose. Cardiology to sign off. Call with questions or concerns. Abdias Harmon, DO Subjective Patient seen and examined. Chart, medications, telemetry reviewed. Overall feeling quite a bit better. No chest pain, palpitations, shortness of breath, orthopnea, PND, or lower extremity fluid. Review of Systems Review of Systems: Complete Review of Systems is as stated above, negative, noncontributory Physical Exam Physical Exam: General: NAD. HENT: Normocephalic. Atraumatic. Eyes: The left upper eyelid is no longer erythematous PER. Conjunctiva pink, sclera clear. Neck: No overt JVD. Heart: Regular at 80 bpm. Grade I-II/ systolic murmur at the left mid sternal border. Lungs: Diminished but clear to auscultation. Abdomen: +BS. Soft. No overt masses. Left sided nephrostomy Extremities: No significant edema. No cyanosis. Results & Data Vital Signs (Past 12 Hours) Vital Signs Temp Pulse Resp BP Pulse Ox O2 Del Method 02/13/25 08:01 36.7 C 82 18 109/71 97 Room Air 02/13/25 03:00 36.8 C 72 18 106/71 95 Room Air 02/12/25 23:04 Room Air 02/12/25 22:54 36.8 C 81 18 124/83 90 Room Air Laboratory Results Cardiac Enzymes 02/12/25 02/12/25 02/12/25 Range/Units 11:09 17:22 22:40 AST 16 (13-39) U/L Troponin I High Sens 5.7 23.0 H D 21.1 H (0-14) pg/ml Coagulation 02/12/25 Range/Units 11:09 PT 10.5 (9.0-12.0) Seconds APTT 24 (21-31) Seconds CBC 02/12/25 02/13/25 02/13/25 Range/Units 11:09 05:36 06:36 WBC 12.65 H Cancelled 10.16 (4.8-10.8) K/ul RBC 3.89 L Cancelled 3.28 L (4.20-5.40) M/uL Hgb 11.0 L Cancelled 9.5 L (12.0-16.0) g/dl Hct 35.6 L Cancelled 30.5 L (37.0-47.0) % Plt Count 208 Cancelled 187 (130-400) K/uL Neut # (Auto) 11.18 H 7.41 H (1.40-6.50) K/uL Lymph # (Auto) 0.69 L 1.51 (1.20-3.40) K/uL Stone # (Auto) 0.62 H 0.98 H (0.11-0.59) K/uL Eos # (Auto) 0.06 0.19 (0.00-0.50) K/uL Baso # (Auto) 0.04 0.04 (0.00-0.20) K/uL Comprehensive Metabolic Panel 02/12/25 02/13/25 Range/Units 11:09 05:36 Sodium 141 142 (136-145) mmol/L Potassium 4.1 4.4 (3.5-5.1) mmol/L Chloride 116 H 119 H (98-107) mmol/L Carbon Dioxide 15 L 17 L (21-32) mmol/L BUN 30 H 27 H (6-23) mg/dl Creatinine 2.43 H 2.18 H (0.6-1.2) mg/dl Glucose 167 H 104 H (70-99(Fasting)) mg/dl Calcium 9.3 8.7 (8.6-10.3) mg/dl Direct Bilirubin 0.1 (0-0.2) mg/dl AST 16 (13-39) U/L ALT 13 (7-52) U/L Alkaline Phosphatase 135 H (34-104) U/L Total Protein 7.6 (6.0-8.3) gm/dl Albumin 4.0 (3.4-5.0) gm/dl Intake and Output 02/12/25 02/13/25 02/13/25 22:59 06:59 14:59 Intake Total 220 / 4566.667 1406.667 / 4566.667 Output Total 801 / 812 Balance 219 / 3754.667 605.667 / 3754.667 Intake: IV 100 / 3706.667 906.667 / 3706.667 Lactated Ringer's 1,000 ml @ 906.667 / 906.667 100 mls/hr IV .Q10H [facility] Rx#: [id number] Magnesium Sulfate / D5w 1 gm In 100 / 100 100 ml @ 50 mls/hr IV ONE ONE Rx#:[id number] Oral 120 / 860 500 / 860 Output: Urine Amount (Catheter) 800 / 810 External 700 / 700 Left Nephrostomy 100 / 110 # Bowel Movements Other: Weight 78.1 kg 79.7 kg Weight Measurement Method [facility] in [facility] Diagnostic Findings Telemetry: Sinus rhythm at 80 bpm with occasional ectopy. EKG this AM reveals sinus rhythm at 71 bpm with low voltage QRS, QTc 393 ms. February 13, 2025 TTE ([facility], Dr. Harmon): Sinus rhythm in the 70s was present during the echocardiogram study. There is mild concentric left ventricular hypertrophy. The left ventricular wall motion is normal. Left ventricular systolic function is normal. Left ventricular ejection fraction 60 to 65%. Right ventricle was normal in size and function. Mild aortic regurgitation. Mild tricuspid regurgitation. Pulmonary artery systolic pressure 50 mmHg (mild to moderately elevated):. Grade 1 diastolic dysfunction (abnormal relaxation pattern). Compared to the report of the previous study dated April 10, 2023, the estimated pulmonary artery systolic pressure is relatively unchanged. No pericardial effusion.
--- NOTE | 2025-02-13 10:18 | Urology Consultation ---
Date of Consultation February 13, 2025 Assessment & Plan (1) Urinary tract infection: (2) Sepsis: 69-year-old female with history of obstruction with left nephrostomy tube admitted for SVT and sepsis secondary to suspected UTI and pneumonia. Patient is currently afebrile, hemodynamically stable Labs reviewedcreatinine 2.18, WBC 10.16, hemoglobin 9.5 Urine and blood cultures with E. coli CT imaging reviewed - left nephrostomy tube appropriately positioned, no left hydronephrosis; bilateral nonobstructing renal calculi No acute intervention warranted at this time Continue broad-spectrum antibiotics and narrow per sensitivity data when available Infectious disease consulted Continue supportive care and medical management per hospital medicine service Continue follow-up with [facility] for left percutaneous nephrostomy tube exchanges She reports that she is scheduled for PCN exchange next weekmay need to be rescheduled due to current infection, defer to [facility] IR and ID recs Continue supportive care and medical management per hospital medicine service Plan to keep follow-up as scheduled with Dr. Adam will sign off, please contact our service with any additional questions or concerns History of Present Illness Reason for Consultation: UTI, history of left nephrostomy Attending Physician: Madeline Jasso MD History of Present Illness This is a 69 year old female who follows with urology for complicated urological hx including nephrolithiasis, recurrent UTI/Pyelo, left parapelvic cyst, obstruction and left hydronephrosis currently managed with left percutaneous nephrostomy tube exchanged at [facility]. She presented to ED on 02/12/2025 for evaluation of fever, ill feelings, flank and suprapubic pain. On arrival to ED, she was afebrile, normotensive, tachycardic in the 160s. EKG noted SVT. She was treated with adenosine with improvement in heart rate. Lab work showed WBC 12.65, hemoglobin 11.0, creatinine 2.43. Workup included CT abdomen pelvis which showed resolution process with interval placement of percutaneous nephrostomy. Persistent bilateral urothelial thickening. Bilateral nonobstructing renal calculi. Bilateral perinephric stranding and urothelial thickening is noted, bladder wall thickening with adjacent stranding is also unchanged. She was admitted to the hospital medicine service for SVT, sepsis secondary to suspected UTI and pneumonia. She was started on cefepime in ED. Urology is consulted for UTI, history of left nephrostomy. Labs todaycreatinine 2.18, WBC 10.16, hemoglobin 9.5. Blood cultures prelim with E. coli, urine culture prelim with E. coli. Currently on cefepime and doxycycline. Patient seen and examined at bedside this morning. She is awake and resting in bed. She reports urinary discomfort and dysuria. Continues to have left flank discomfort. She reports nausea and vomiting. No fever or chills overnight. Left nephrostomy tube intact and draining. She reports her last nephrostomy tube exchange was in November. She is scheduled for exchange at [facility] next week. Allergies Allergy/AdvReac Type Severity Reaction Status Date / Time fentanyl Allergy Severe itching/felt Verified 12/14/23 10:15 like throat closing salicylates Allergy Severe SHORTNESS Verified 02/12/25 13:19 OF BREATH Iodinated Contrast Media Allergy Intermediate EYES Verified 12/14/23 10:15 SWELLING/Hives amoxicillin [From Augmentin] Allergy Mild Rash Verified 12/14/23 10:15 aspirin Allergy Mild FACIAL Verified 02/12/25 13:19 SWELLING clavulanic acid Allergy Mild Rash Verified 12/14/23 10:15 [From Augmentin] hydromorphone Allergy Mild RASH/ITCHIN Verified 12/14/23 10:15 G Opioids - Morphine Analogues Allergy Unknown Unknown - Unverified 02/12/25 13:19 On file w/ [facility] Tetracyclic Antidepressants Allergy Unknown Unknown - Unverified 02/12/25 13:19 On file / [facility] meperidine AdvReac Intermediate ITCH Verified 02/12/25 13:19 morphine AdvReac Intermediate ITCH Verified 02/12/25 13:19 tramadol AdvReac Mild itch Verified 12/14/23 10:15 Home Medications Medication Instructions Recorded Confirmed Type atorvastatin 40 mg tablet (Lipitor) 40 mg PO QAM 07/12/18 02/12/25 History pantoprazole 40 mg tablet,delayed 40 mg PO BID 07/12/18 02/12/25 History release (Protonix) riboflavin (vitamin B2) 400 mg 400 mg PO QAM 07/12/18 02/12/25 History tablet cholecalciferol (vitamin D3) 50 2,000 unit PO QAM 05/16/19 02/12/25 History mcg (2,000 unit) capsule (Vitamin D3) oxcarbazepine 300 mg tablet 300 mg PO BID 12/22/21 02/12/25 History loperamide 2 mg capsule 2 mg PO TID PRN diarrhea #30 caps 01/18/22 02/12/25 Rx magnesium oxide 400 mg (241.3 mg 400 mg PO DAILY 11/02/22 02/12/25 History magnesium) tablet acetaminophen 325 mg tablet 650 mg (2 x 325 mg) PO Q8H PRN 11/09/22 02/12/25 Rx fever or pain #60 tabs cyanocobalamin (vitamin B-12) 100 100 mcg PO QAM #30 tabs 11/09/22 02/12/25 Rx mcg tablet (Vitamin B-12) midodrine 5 mg tablet 5 mg PO TID #90 tabs 04/21/23 02/12/25 Rx metoprolol succinate 25 mg 25 mg PO BID 12/14/23 02/12/25 History tablet,extended release 24 hr tamsulosin 0.4 mg capsule 0.4 mg PO DAILY #30 caps 12/21/24 02/12/25 Rx hydroxyzine HCl 25 mg tablet 25 mg PO HS 02/12/25 02/12/25 History oxybutynin chloride 5 mg tablet 5 mg PO QAM 02/12/25 02/12/25 History Patient History Medical History Nephrostomy present Sleep apnea No device since device recalled History of COVID-19 x2, most recent 10/2022- symptoms resolved Chronic obstructive pulmonary disease 2L NC HS Nausea and vomiting History of TIA (transient ischemic attack) Remote hx, "when I was younger" Takotsubo cardiomyopathy 2015 with return to normal LV function Recurrent UTI CKD (chronic kidney disease), stage III Stage 3 Follows with [facility] nephrology ([place]) Kidney stone Mood disorder Sinus tachycardia No recent issues Diarrhea Flank pain with history of urolithiasis Recurrent falls Diabetes mellitus, type 2 Morbid obesity with BMI of 40.0-44.9, adult History of colon cancer 2012 > s/p surgery Chronic back pain GERD (gastroesophageal reflux disease) Anxiety Chronic headaches Deep vein thrombosis LLE (remote hx), was treated with blood thinners Myocardial Infarction 2015 > cardiac cath, normal coronary anatomy without coronary obstruction Poor historian Depression Asthma HTN (hypertension) Surgical History History of anesthesia reaction Patient had cysto/stent (10/11/21) for kidney stone at [facility] with MAC. "Patient awake and comfortable"/no issues noted per post-op anesthesia progress note. Per 10/16/21 critical care note, patient developed acute metabolic encephalop athy- multifactorial and subsequently intubated 10/17/21 d/t "altered MS" > extubated 10/19/21 History of cystoscopy s/p L ureteral stent 10/2021 followed by lithotripsy, stone extraction and stent exchange 11/2021 History of esophageal dilatation History of colonoscopy History of esophagogastroduodenoscopy (EGD) History of lithotripsy History of bilateral cataract extraction History of blepharoplasty History of cardiac cath 2017 > no stents History of kidney surgery at age 9 yrs "something was wrong and had to fix it" History of appendectomy History of tooth extraction H/O hand surgery Right Hx of cholecystectomy History of total abdominal hysterectomy and bilateral salpingo-oophorectomy History of colectomy Family History Other Breast cancer Colorectal cancer No family history of adverse response to anesthesia Social History Smoking Status: Never smoker Second Hand Exposure: No; Do You Dip or Chew Tobacco: No; Hx Alcohol Use: No Hx Substance Use: No Preferred Language: German Communication Ability: Effective Visual Impairment: No Limitations Hearing Ability: Normal Spray Gunner Required: No Beliefs That Will Affect Care: None marital status: Current Living Situation: Alone Current Living Situation Comment: has Home Health Other Information That Helps Us Care for You: No Feels Safe at Home: Yes Safety Concerns: Feels Safe At This Time Assistive Devices: Glasses, Oxygen - at Night, Scooter/Electric Scooter, Walker and Wheelchair Review of Systems Review of Systems: All systems reviewed & are unremarkable except as noted in HPI & below Physical Exam Constitutional: no acute distress Respiratory: normal respiratory effort; no respiratory distress and no labored breathing Gastrointestinal (Abdomen): Inspection/Auscultation: abdomen normal to inspection Musculoskeletal: Head/Neck/Chest: normocephalic Neurologic: moves all extremities and awake Psychiatric: Orientation: alert and oriented x 3 Genitourinary: Left nephrostomy tube patent and draining clear yellow urine Pure wick in place with concentrated yellow urine Results & Data Vital Signs (Past 12 Hours) Vital Signs Temp Pulse Resp BP Pulse Ox O2 Del Method 02/13/25 08:01 36.7 C 82 18 109/71 97 Room Air 02/13/25 03:00 36.8 C 72 18 106/71 95 Room Air 02/12/25 23:04 Room Air 02/12/25 22:54 36.8 C 81 18 124/83 90 Room Air PG Care Time/CCT Total # of Minutes Spent Total Time Spent with Patient: Total time spent is greater than 50% in coordination of care (as documented) at patient's floor/unit and/or counseling patient: Coding Level of Care Code 77193 INT INP/OBS CARE 2/55MIN Diagnoses Urinary tract infection N39.0 Sepsis A41.9
--- NOTE | 2025-02-13 11:51 | Hospitalist Progress Note ---
Date of Service February 13, 2025 Assessment & Plan (1) Sepsis: (2) Nephrostomy present: (3) Complicated UTI (urinary tract infection): (4) SVT (supraventricular tachycardia): (5) Metabolic acidosis, normal anion gap (NAG): (6) CKD (chronic kidney disease), stage IV: (7) Chronic diarrhea: (8) Bipolar disorder: Plan Ms Nesbitt is a 69-year-old female with PMH HLD, COPD, CALI, asthma, CKD stage IV, sinus tachycardia, GERD, stress-induced catecholamine mediated cardiomyopathy in 2015 with normalization of LV systolic function, history of recurrent complicated UTIs with ureteral obstruction/ left hydronephrosis/ large parapelvic cyst s/p left nephrostomy 01/2024 at [facility] and other problems listed admitted for sepsis due to suspected complicated cystitis. #Sepsis 2/ complicated cystitis #Gram negative bacteremia, Ecoli Hx ureteral obstruction/ left hydronephrosis/ large parapelvic cyst s/p left nephrostomy 01/2024 at [facility] and exchanged 11/2024 due to obstruction WBC 12k, lactate 1.5, SVT CT ABD/pelvis shows Resolution of left hydronephrosis following interval placement of a percutaneous nephrostomy. Persistent bilateral urothelial thickening and bilateral wall thickening. This is likely chronic although could be correlated with urinalysis. Bilateral nephrolithiasis. No ureteral calculi. Minimal right lower lobe groundglass opacity which favors a mild infectious process. Suspect urinary source +/- RLL pneumonia Patient declined biofire testing 02/12 Urine cx: e coli 02/12 Blood cx: e coli transition cefepime to CTX doxycycline for possible RLL riaz/atypical coverage ID consulted given complicated cystitis iso nephrostomy tube #SVT Hx of sinus tach managed with metoprolol however missed a.m. medications Presented with SVT in the 160s s/p IV adenosine x 1 with improvement, likely iso sepsis from above Continue [employer]ICAL DEFENSE OFFICER dose metoprolol succinate 25 mg BID ECHO reviewed: PASP 50mmhg, EF 60-65% Cardiology recommendations reviewed with plans to continue current mgmt #Metabolic acidosis, normal anion gap (NAG): #CKD IV at baseline Cr ~2.4 discontinue IVF for risk of overload #Chronic diarrhea: At baseline per patient, no indication for stool testing at this time # Bipolar disorder: Continue [employer] DEFENSE OFFICER oxcarbamazepine DVT ppx: SQ heparin Pending ID recs and PT/OT Admission and Anticipated Discharge Date Admission Date: February 12, 2025 Subjective Evaluated at bedside, reports feeling better than yesterday but over all still poorly Denies any chest pain or recurrent palpitations reports intermittent flank pain Physical Exam Constitutional: WD/WN, vitals as above Respiratory: normal respiratory effort, lungs clear to auscultation Cardiovascular: RRR, no murmur, no edema Gastrointestinal (Abdomen): normal bowel sounds, soft, nontender, no hepatosplenomegaly left nephrostomy in place Results & Data Results & Data Vital Signs (Past 12 Hours) Vital Signs Temp Pulse Resp BP Pulse Ox O2 Del Method 02/13/25 11:38 36.7 C 73 18 112/72 94 Room Air 02/13/25 08:01 36.7 C 82 18 109/71 97 Room Air 02/13/25 03:00 36.8 C 72 18 106/71 95 Room Air Laboratory Results Short CBC 02/13/25 02/13/25 Range/Units 05:36 06:36 WBC Cancelled 10.16 Hgb Cancelled 9.5 L Hct Cancelled 30.5 L Plt Count Cancelled 187 BMP 02/13/25 05:36 Sodium 142 Potassium 4.4 Chloride 119 H Carbon Dioxide 17 L BUN 27 H Creatinine 2.18 H Glucose 104 H Calcium 8.7 Urine 02/12/25 02/13/25 Range/Units 16:02 06:15 Urine Color Yellow Yellow Urine Appearance Turbid A Cloudy A (Clear) Urine pH 6.5 7.0 (4.5-7.5) Ur Specific Lexa 1.011 1.010 (1.000-1.030) Urine Protein 3+ H 3+ H (Negative) Urine Glucose (UA) Trace H Negative (Negative) Medications Administered Home Medications Medication Instructions Recorded Confirmed Last Taken atorvastatin 40 mg tablet (Lipitor) 40 mg PO QAM 07/12/18 02/12/25 02/11/25 pantoprazole 40 mg tablet,delayed 40 mg PO BID 07/12/18 02/12/25 02/11/25 release (Protonix) riboflavin (vitamin B2) 400 mg 400 mg PO QAM 07/12/18 02/12/25 02/11/25 tablet cholecalciferol (vitamin D3) 50 2,000 unit PO QAM 05/16/19 02/12/25 02/11/25 mcg (2,000 unit) capsule (Vitamin D3) oxcarbazepine 300 mg tablet 300 mg PO BID 12/22/21 02/12/25 02/11/25 loperamide 2 mg capsule 2 mg PO TID PRN diarrhea #30 caps 01/18/22 02/12/25 Unknown magnesium oxide 400 mg (241.3 mg 400 mg PO DAILY 11/02/22 02/12/25 02/11/25 magnesium) tablet acetaminophen 325 mg tablet 650 mg (2 x 325 mg) PO Q8H PRN 11/09/22 02/12/25 Unknown fever or pain #60 tabs cyanocobalamin (vitamin B-12) 100 100 mcg PO QAM #30 tabs 11/09/22 02/12/25 02/11/25 mcg tablet (Vitamin B-12) midodrine 5 mg tablet 5 mg PO TID #90 tabs 04/21/23 02/12/25 02/11/25 metoprolol succinate 25 mg 25 mg PO BID 12/14/23 02/12/25 02/11/25 tablet,extended release 24 hr tamsulosin 0.4 mg capsule 0.4 mg PO DAILY #30 caps 12/21/24 02/12/25 02/11/25 hydroxyzine HCl 25 mg tablet 25 mg PO HS 02/12/25 02/12/25 02/11/25 oxybutynin chloride 5 mg tablet 5 mg PO QAM 02/12/25 02/12/25 02/11/25 Active Medications Generic Name Dose Route Start Last Admin Trade Name Gorge PRN Reason Stop Dose Admin Atorvastatin Calcium 40 mg 02/13/25 09:00 02/13/25 08:41 Atorvastatin 40 Mg Tab PO 03/15/25 08:59 40 mg QAM MARLA Administration Ciprofloxacin 2 drops 02/12/25 17:00 02/13/25 12:22 Ciprofloxacin Hcl 0.3% Op Soln 2.5 Ml Btl OPL 02/17/25 16:59 2 drops Q4H MARLA Administration Doxycycline Hyclate 100 mg 02/12/25 21:00 02/13/25 08:41 Doxycycline Hyclate 100 Mg Cap PO 02/17/25 20:59 100 mg BID MARLA Administration Heparin Sodium (Porcine) 5,000 units 02/12/25 16:54 02/13/25 05:26 Heparin Sod 5,000 Unit/0.5 Ml Vial SQ 03/14/25 16:53 Not Given Q8 MARLA Hydroxyzine HCl 25 mg 02/12/25 21:00 02/12/25 21:14 Hydroxyzine Hcl 25 Mg Tab PO 03/14/25 20:59 25 mg HS MARLA Administration Lactated Ringer's 1,000 mls @ 100 mls/hr 02/12/25 15:15 02/13/25 12:22 Lr IV 02/15/25 15:14 100 mls/hr .Q10H MARLA Administration Magnesium Oxide 400 mg 02/13/25 09:00 02/13/25 08:40 Magnesium Oxide 400 Mg Tab PO 03/15/25 08:59 400 mg DAILY MARLA Administration Metoprolol Succinate 25 mg 02/12/25 21:00 02/13/25 08:41 Metoprolol Succ 25mg Ext Rel Tab PO 03/14/25 20:59 25 mg BID MARLA Administration Midodrine 5 mg 02/12/25 21:00 02/13/25 08:41 Midodrine Hcl 2.5 Mg Tab PO 03/14/25 20:59 5 mg TID MARLA Administration Ondansetron HCl 4 mg 02/12/25 15:02 02/13/25 08:48 Ondansetron Inj 2 Mg/Ml 2 Ml Vial IV 03/14/25 15:01 4 mg Q6H PRN Administration Nausea And Vomiting Oxcarbazepine 300 mg 02/12/25 21:00 02/13/25 08:41 Oxcarbazepine 150 Mg Tablet PO 03/14/25 20:59 300 mg BID MARLA Administration Oxybutynin Chloride 5 mg 02/13/25 09:00 02/13/25 08:41 Oxybutynin Chloride 5 Mg Tab PO 03/15/25 08:59 5 mg QAM MARLA Administration Pantoprazole Sodium 40 mg 02/12/25 21:00 02/13/25 08:41 Pantoprazole 40 Mg Tab PO 03/14/25 20:59 40 mg BID MARLA Administration Tamsulosin HCl 0.4 mg 02/13/25 09:00 02/13/25 08:41 Tamsulosin Hcl 0.4 Mg Cap PO 03/15/25 08:59 0.4 mg DAILY MARLA Administration
--- NOTE | 2025-02-13 12:58 | Infectious Disease Consult ---
Date of Service February 13, 2025 Telehealth Information I performed this visit using a real-time telehealth connection between my location and the patients location ([facility]). After connecting through interactive tele-video, patient was identified by name and date of and/or wristband check.Patient (or authorized healthcare business services representative) was informed that this was a telemedicine visit and it was being conducted confidentially over secure lines. My office door was closed and no one else was present in the room with me.Patient (or authorized healthcare business services representative) provided consent to proceed with the visit, expressed an understanding of privacy and security of the telemedicine visit, and gave permission to have a hospital business services representative in the room in order to assist with the visit and to conduct portions of the visit, as needed. I informed the patient (or authorized healthcare business services representative) that I reviewed their record and presented the opportunity for them to ask any questions regarding the visit today. The patient agreed to participate. History of Present Illness History of Present Illness The patient is a 69-year-old female with a complex urological history, including nephrolithiasis, recurrent urinary tract infections (UTIs) and pyelonephritis, a left parapelvic cyst, obstruction, and left hydronephrosis, which is managed with a left percutaneous nephrostomy tube. The nephrostomy tube is regularly exchanged at [place], with the last exchange in November.She presented to the emergency department on February 12, 2025, with symptoms of fever, malaise, and pain in the flank and suprapubic regions. Upon arrival, she was afebrile and normotensive but exhibited tachycardia with a heart rate in the 160s. An electrocardiogram revealed supraventricular tachycardia (SVT), which was treated with adenosine, resulting in improved heart rate control. Laboratory evaluations indicated a white blood cell count of 12.65, hemoglobin level of 11.0, and creatinine level of 2.43. A CT scan of the abdomen and pelvis showed resolution following the placement of the percutaneous nephrostomy, but persistent bilateral urothelial thickening, bilateral nonobstructing renal calculi, and bladder wall thickening with adjacent stranding remained unchanged.She was admitted for management of SVT and sepsis, suspected to be secondary to a urinary tract infection and pneumonia. Initial treatment with cefepime was started in the emergency department. Urology was consulted for her UTI and nephrostomy history.Current lab results show a creatinine level of 2.18, WBC count of 10.16, and hemoglobin level of 9.5. Preliminary blood and urine cultures have both grown E. coli. She is currently receiving cefepime and doxycycline was added for possible pneumonia.During evaluation, the patient was found to be awake and resting. She reported urinary discomfort, dysuria, persistent left flank pain, nausea, and vomiting, but no fever or chills overnight. The left nephrostomy tube is intact and draining properly. She is scheduled for a nephrostomy tube exchange at [place] next week. Allergies Allergy/AdvReac Type Severity Reaction Status Date / Time fentanyl Allergy Severe itching/felt Verified 12/14/23 10:15 like throat closing salicylates Allergy Severe SHORTNESS Verified 02/12/25 13:19 OF BREATH Iodinated Contrast Media Allergy Intermediate EYES Verified 12/14/23 10:15 SWELLING/Hives amoxicillin [From Augmentin] Allergy Mild Rash Verified 12/14/23 10:15 aspirin Allergy Mild FACIAL Verified 02/12/25 13:19 SWELLING ciprofloxacin Allergy Mild Itching Verified 02/15/25 11:10 clavulanic acid Allergy Mild Rash Verified 12/14/23 10:15 [From Augmentin] hydromorphone Allergy Mild RASH/ITCHIN Verified 12/14/23 10:15 G Opioids - Morphine Analogues Allergy Unknown Unknown - Unverified 02/12/25 13:19 On file w/ [facility] Tetracyclic Antidepressants Allergy Unknown Unknown - Unverified 02/12/25 13:19 On file / [facility] meperidine AdvReac Intermediate ITCH Verified 02/12/25 13:19 morphine AdvReac Intermediate ITCH Verified 02/12/25 13:19 tramadol AdvReac Mild itch Verified 12/14/23 10:15 Home Medications Medication Instructions Recorded Confirmed Type atorvastatin 40 mg tablet (Lipitor) 40 mg PO QAM 07/12/18 02/12/25 History pantoprazole 40 mg tablet,delayed 40 mg PO BID 07/12/18 02/12/25 History release (Protonix) riboflavin (vitamin B2) 400 mg 400 mg PO QAM 07/12/18 02/12/25 History tablet cholecalciferol (vitamin D3) 50 2,000 unit PO QAM 05/16/19 02/12/25 History mcg (2,000 unit) capsule (Vitamin D3) oxcarbazepine 300 mg tablet 300 mg PO BID 12/22/21 02/12/25 History loperamide 2 mg capsule 2 mg PO TID PRN diarrhea #30 caps 01/18/22 02/12/25 Rx magnesium oxide 400 mg (241.3 mg 400 mg PO DAILY 11/02/22 02/12/25 History magnesium) tablet acetaminophen 325 mg tablet 650 mg (2 x 325 mg) PO Q8H PRN 11/09/22 02/12/25 Rx fever or pain #60 tabs cyanocobalamin (vitamin B-12) 100 100 mcg PO QAM #30 tabs 11/09/22 02/12/25 Rx mcg tablet (Vitamin B-12) midodrine 5 mg tablet 5 mg PO TID #90 tabs 04/21/23 02/12/25 Rx metoprolol succinate 25 mg 25 mg PO BID 12/14/23 02/12/25 History tablet,extended release 24 hr tamsulosin 0.4 mg capsule 0.4 mg PO DAILY #30 caps 12/21/24 02/12/25 Rx hydroxyzine HCl 25 mg tablet 25 mg PO HS 02/12/25 02/12/25 History oxybutynin chloride 5 mg tablet 5 mg PO QAM 02/12/25 02/12/25 History Patient History Medical History Nephrostomy present Sleep apnea No device since device recalled History of COVID-19 x2, most recent 10/2022- symptoms resolved Chronic obstructive pulmonary disease 2L NC HS Nausea and vomiting History of TIA (transient ischemic attack) Remote hx, "when I was younger" Takotsubo cardiomyopathy 2015 with return to normal LV function Recurrent UTI CKD (chronic kidney disease), stage III Stage 3 Follows with [facility] nephrology ([place]) Kidney stone Mood disorder Sinus tachycardia No recent issues Diarrhea Flank pain with history of urolithiasis Recurrent falls Diabetes mellitus, type 2 Morbid obesity with BMI of 40.0-44.9, adult History of colon cancer 2012 > s/p surgery Chronic back pain GERD (gastroesophageal reflux disease) Anxiety Chronic headaches Deep vein thrombosis LLE (remote hx), was treated with blood thinners Myocardial Infarction 2015 > cardiac cath, normal coronary anatomy without coronary obstruction Poor historian Depression Asthma HTN (hypertension) Surgical History History of anesthesia reaction Patient had cysto/stent (10/11/21) for kidney stone at [facility] with MAC. "Patient awake and comfortable"/no issues noted per post-op anesthesia progress note. Per 10/16/21 critical care note, patient developed acute metabolic enc ephalopathy- multifactorial and subsequently intubated 10/17/21 d/t "altered MS" > extubated 10/19/21 History of cystoscopy s/p L ureteral stent 10/2021 followed by lithotripsy, stone extraction and stent exchange 11/2021 History of esophageal dilatation History of colonoscopy History of esophagogastroduodenoscopy (EGD) History of lithotripsy History of bilateral cataract extraction History of blepharoplasty History of cardiac cath 2017 > no stents History of kidney surgery at age 9 yrs "something was wrong and had to fix it" History of appendectomy History of tooth extraction H/O hand surgery Right Hx of cholecystectomy History of total abdominal hysterectomy and bilateral salpingo-oophorectomy History of colectomy Family History Other Breast cancer Colorectal cancer No family history of adverse response to anesthesia Social History Smoking Status: Never smoker Second Hand Exposure: No; Do You Dip or Chew Tobacco: No; Hx Alcohol Use: No Hx Substance Use: No Preferred Language: Ivorian Communication Ability: Effective Visual Impairment: No Limitations Hearing Ability: Normal Botanical Technical Officer Required: No Beliefs That Will Affect Care: None marital status: Current Living Situation: Alone Current Living Situation Comment: has Home Health Other Information That Helps Us Care for You: No Feels Safe at Home: Yes Safety Concerns: Feels Safe At This Time Assistive Devices: Bedside Commode, Cane, Oxygen - at Night and Walker Results & Data Vital Signs (Past 12 Hours) Vital Signs Temp Pulse Resp BP Pulse Ox O2 Del Method 02/13/25 11:38 36.7 C 73 18 112/72 94 Room Air 02/13/25 08:01 36.7 C 82 18 109/71 97 Room Air 02/13/25 03:00 36.8 C 72 18 106/71 95 Room Air
[2025-02-13] MEDS: ACETAMINOPHEN 1,000 MG/100 ML VIAL IV STA (13:30)
--- NOTE | 2025-02-13 15:21 | Infectious Disease Consult ---
Date of Service February 13, 2025 Telehealth Information I performed this visit using a real-time telehealth connection between my location and the patients location ([facility]). After connecting through interactive tele-video, patient was identified by name and date of and/or wristband check.Patient (or authorized healthcare admitting representative) was informed that this was a telemedicine visit and it was being conducted confidentially over secure lines. My office door was closed and no one else was present in the room with me.Patient (or authorized healthcare admitting representative) provided consent to proceed with the visit, expressed an understanding of privacy and security of the telemedicine visit, and gave permission to have a hospital admitting representative in the room in order to assist with the visit and to conduct portions of the visit, as needed. I informed the patient (or authorized healthcare admitting representative) that I reviewed their record and presented the opportunity for them to ask any questions regarding the visit today. The patient agreed to participate. Assessment & Plan (1) E coli bacteremia: (2) Complicated UTI (urinary tract infection): (3) Nephrostomy status: Plan - Discontinue Doxycycline. - Continue IV ceftriaxone 1g Q24 H - We will continue to follow the susceptibilities - Recommended to get RVP - We anticipate patient will be on abx for 14 days - Final antibiotic recommendations remain pending - Infectious Disease will continue to follow the patient History of Present Illness History of Present Illness The patient is a 69-year-old female with a complex urological history, including nephrolithiasis, recurrent urinary tract infections (UTIs) and pyelonephritis, a left parapelvic cyst, obstruction, and left hydronephrosis, which is managed with a left percutaneous nephrostomy tube. The nephrostomy tube is regularly exchanged at [place], with the last exchange in November.She presented to the emergency department on February 12, 2025, with symptoms of fever, malaise, and pain in the flank and suprapubic regions. Upon arrival, she was afebrile and normotensive but exhibited tachycardia with a heart rate in the 160s. An electrocardiogram revealed supraventricular tachycardia (SVT), which was treated with adenosine, resulting in improved heart rate control. Laboratory evaluations indicated a white blood cell count of 12.65, hemoglobin level of 11.0, and creatinine level of 2.43. A CT scan of the abdomen and pelvis showed resolution following the placement of the percutaneous nephrostomy, but persistent bilateral urothelial thickening, bilateral nonobstructing renal calculi, and bladder wall thickening with adjacent stranding remained unchanged.She was admitted for management of SVT and sepsis, suspected to be secondary to a urinary tract infection and pneumonia. Initial treatment with cefepime was started in the emergency department. Urology was consulted for her UTI and nephrostomy history.Current lab results show a creatinine level of 2.18, WBC count of 10.16, and hemoglobin level of 9.5. Preliminary blood and urine cultures have both grown E. coli ( susceptibilities pending). She is currently receiving cefepime and doxycycline was added for possible pneumonia.During evaluation, the patient was found to be awake and resting. She reported urinary discomfort, dysuria, persistent left flank pain, nausea, and vomiting, but no fever or chills overnight. The states that left nephrostomy tube is intact and draining properly. She is scheduled for a nephrostomy tube exchange at [place] next week. Allergies Allergy/AdvReac Type Severity Reaction Status Date / Time fentanyl Allergy Severe itching/felt Verified 12/14/23 10:15 like throat closing salicylates Allergy Severe SHORTNESS Verified 02/12/25 13:19 OF BREATH Iodinated Contrast Media Allergy Intermediate EYES Verified 12/14/23 10:15 SWELLING/Hives amoxicillin [From Augmentin] Allergy Mild Rash Verified 12/14/23 10:15 aspirin Allergy Mild FACIAL Verified 02/12/25 13:19 SWELLING clavulanic acid Allergy Mild Rash Verified 12/14/23 10:15 [From Augmentin] hydromorphone Allergy Mild RASH/ITCHIN Verified 12/14/23 10:15 G Opioids - Morphine Analogues Allergy Unknown Unknown - Unverified 02/12/25 13:19 On file w/ [facility] Tetracyclic Antidepressants Allergy Unknown Unknown - Unverified 02/12/25 13:19 On file w/ [facility] meperidine AdvReac Intermediate ITCH Verified 02/12/25 13:19 morphine AdvReac Intermediate ITCH Verified 02/12/25 13:19 tramadol AdvReac Mild itch Verified 12/14/23 10:15 Home Medications Medication Instructions Recorded Confirmed Type atorvastatin 40 mg tablet (Lipitor) 40 mg PO QAM 07/12/18 02/12/25 History pantoprazole 40 mg tablet,delayed 40 mg PO BID 07/12/18 02/12/25 History release (Protonix) riboflavin (vitamin B2) 400 mg 400 mg PO QAM 07/12/18 02/12/25 History tablet cholecalciferol (vitamin D3) 50 2,000 unit PO QAM 05/16/19 02/12/25 History mcg (2,000 unit) capsule (Vitamin D3) oxcarbazepine 300 mg tablet 300 mg PO BID 12/22/21 02/12/25 History loperamide 2 mg capsule 2 mg PO TID PRN diarrhea #30 caps 01/18/22 02/12/25 Rx magnesium oxide 400 mg (241.3 mg 400 mg PO DAILY 11/02/22 02/12/25 History magnesium) tablet acetaminophen 325 mg tablet 650 mg (2 x 325 mg) PO Q8H PRN 11/09/22 02/12/25 Rx fever or pain #60 tabs cyanocobalamin (vitamin B-12) 100 100 mcg PO QAM #30 tabs 11/09/22 02/12/25 Rx mcg tablet (Vitamin B-12) midodrine 5 mg tablet 5 mg PO TID #90 tabs 04/21/23 02/12/25 Rx metoprolol succinate 25 mg 25 mg PO BID 12/14/23 02/12/25 History tablet,extended release 24 hr tamsulosin 0.4 mg capsule 0.4 mg PO DAILY #30 caps 12/21/24 02/12/25 Rx hydroxyzine HCl 25 mg tablet 25 mg PO HS 02/12/25 02/12/25 History oxybutynin chloride 5 mg tablet 5 mg PO QAM 02/12/25 02/12/25 History Patient History Medical History Nephrostomy present Sleep apnea No device since device recalled History of COVID-19 x2, most recent 10/2022- symptoms resolved Chronic obstructive pulmonary disease 2L NC HS Nausea and vomiting History of TIA (transient ischemic attack) Remote hx, "when I was younger" Takotsubo cardiomyopathy 2015 with return to normal LV function Recurrent UTI CKD (chronic kidney disease), stage III Stage 3 Follows with [facility] nephrology ([place]) Kidney stone Mood disorder Sinus tachycardia No recent issues Diarrhea Flank pain with history of urolithiasis Recurrent falls Diabetes mellitus, type 2 Morbid obesity with BMI of 40.0-44.9, adult History of colon cancer 2012 > s/p surgery Chronic back pain GERD (gastroesophageal reflux disease) Anxiety Chronic headaches Deep vein thrombosis LLE (remote hx), was treated with blood thinners Myocardial Infarction 2016 > cardiac cath, normal coronary anatomy without coronary obstruction Poor historian Depression Asthma HTN (hypertension) Surgical History History of anesthesia reaction Patient had cysto/stent (10/11/21) for kidney stone at [facility] with MAC. "Patient awake and comfortable"/no issues noted per post-op anesthesia progress note. Per 10/16/21 critical care note, patient developed acute metabolic encephalopathy- multifactorial and subsequently intubated 10/17/21 d/t "altered MS" > extubated 10/19/21 History of cystoscopy s/p L ureteral stent 10/2021 followed by lithotripsy, stone extraction and stent exchange 11/2021 History of esophageal dilatation History of colonoscopy History of esophagogastroduodenoscopy (EGD) History of lithotripsy History of bilateral cataract extraction History of blepharoplasty History of cardiac cath 2017 > no stents History of kidney surgery at age 9 yrs "something was wrong and had to fix it" History of appendectomy History of tooth extraction H/O hand surgery Right Hx of cholecystectomy History of total abdominal hysterectomy and bilateral salpingo-oophorectomy History of colectomy Family History Other Breast cancer Colorectal cancer No family history of adverse response to anesthesia Social History Smoking Status: Never smoker Second Hand Exposure: No; Do You Dip or Chew Tobacco: No; Hx Alcohol Use: No Hx Substance Use: No Preferred Language: Divehi Communication Ability: Effective Visual Impairment: No Limitations Hearing Ability: Normal Postal Transportation Clerk Required: No Beliefs That Will Affect Care: None marital status: Current Living Situation: Alone Current Living Situation Comment: has Home Health Other Information That Helps Us Care for You: No Feels Safe at Home: Yes Safety Concerns: Feels Safe At This Time Assistive Devices: Bedside Commode, Cane, Oxygen - at Night and Walker Review of Systems Constitutional: No Weight Change, No Fatigue, No Malaise ENT/Mouth: No Hearing Changes, No Ear Pain, No Nasal Congestion, No Sinus Pain, No Hoarseness, No sore throat, No Rhinorrhea, No Swallowing Difficulty Eyes: No Eye Pain, No Swelling, No Redness, No Foreign Body, No Discharge, No Vision Changes Cardiovascular: No Chest Pain, No SOB, No PND, No Dyspnea on Exertion, No Orthopnea, No Claudication, No Edema, No Palpitations Respiratory: No Cough, No Sputum, No Wheezing, No Smoke Exposure, No Dyspnea Gastrointestinal: No Nausea, No Vomiting, No Diarrhea, No Constipation, No Pain, No Heartburn, No Anorexia, No Dysphagia, No Hematochezia, No Melena, No F latulence, No Jaundice Genitourinary: No Dysmenorrhea, No DUB, No Dyspareunia, Dysuria +, No Urinary Frequency, No Hematuria, No Urinary Incontinence, No Urgency, Flank Pain +, No Urinary Flow Changes, No Hesitancy Musculoskeletal: No Arthralgias, No Myalgias, No Joint Swelling, No Joint Stiffness, No Back Pain, No Neck Pain, No Injury History Skin: No Skin Lesions, No Pruritis, No Hair Changes, No Breast/Skin Changes, No Nipple Discharge Neuro: No Weakness, No Numbness, No Paresthesias, No Loss of Consciousness, No Syncope, No Dizziness, No Headache, No Coordination Changes, No Recent Falls Psych: No Anxiety/Panic, No Depression, No Insomnia, No Personality Changes, No Delusions, No Rumination, No SI/HI/AH/VH, No Social Issues, No Memory Changes, No Violence/Abuse Hx., No Eating Concerns Heme/Lymph: No Bruising, No Bleeding, No Transfusions History, No Lymphadenopathy Endocrine: No Polyuria, No Polydipsia, No Temperature Intolerance Physical Exam Could not be performed as it was a video visit. Results & Data Vital Signs (Past 12 Hours) Vital Signs Temp Pulse Resp BP Pulse Ox O2 Del Method 02/13/25 11:38 36.7 C 73 18 112/72 94 Room Air 02/13/25 08:01 36.7 C 82 18 109/71 97 Room Air 02/13/25 03:00 36.8 C 72 18 106/71 95 Room Air Laboratory Results 02/12/25 16:02 Urine Culture - Preliminary Urine,Straight Cath Escherichia coli 02/12/25 11:49 Aerobic Blood Culture - Preliminary Blood Escherichia coli Anaerobic Blood Culture - Preliminary Escherichia coli 02/12/25 11:29 Aerobic Blood Culture - Preliminary Blood Escherichia coli Anaerobic Blood Culture - Preliminary Escherichia coli 02/13/25 06:15 Urine Culture - Pending Urine,Clean Catch 02/13/25 02/13/25 02/13/25 06:36 06:15 06:10 WBC 10.16 RBC 3.28 L Hgb 9.5 L Hct 30.5 L MCV 93.0 MCH 29.0 MCHC 31.1 L RDW Std Deviation 45.6 RDW Coeff of Teresa 13.3 Plt Count 187 MPV 10.4 Immature Gran % (Auto) 0.3 Neut % (Auto) 72.9 Lymph % (Auto) 14.9 Alexander % (Auto) 9.6 Eos % (Auto) 1.9 Baso % (Auto) 0.4 Neut # (Auto) 7.41 H Lymph # (Auto) 1.51 Alexander # (Auto) 0.98 H Eos # (Auto) 0.19 Baso # (Auto) 0.04 Immature Gran # (Auto) 0.03 Absolute Nucleated RBC Nucleated RBC % (auto) Platelet Estimate Sodium Potassium Chloride Carbon Dioxide Anion Gap BUN Creatinine Est Cr Clr Drug Dosing eGFR BUN/Creatinine Ratio Glucose Estimat Average Glucose 108 Hemoglobin A1c 5.4 Calcium Magnesium Troponin I High Sens Urine Color Yellow Urine Appearance Cloudy A Urine pH 7.0 Ur Specific [place] 1.010 Urine Protein 3+ H Urine Glucose (UA) Negative Urine Ketones Negative Urine Blood 2+ H Urine Nitrite Negative Urine Bilirubin Negative Urine Urobilinogen Negative Ur Leukocyte Esterase 3+ H Urine WBC (Auto) >50 H Urine RBC (Auto) 11-20 H U Hyaline Cast (Auto) 3-5 H U Epithel Cells (Auto) 0-2 Urine Bacteria (Auto) None Seen Stl C. diff Tox B Gene Negative Cdiff Gene Enterobacterales (PCR) E. coli (PCR) mcr-1 Colistin Res Gene PCR blaIMP Car res Gene PCR KPC-Carbap Res Gene PCR blaNDM Car Res Gene PCR OXA-48 Carbapenem Resis Gene (PCR) blaVIM Car Res Gene PCR CTX-M Gene Resistance (PCR) Bld Cult ID Panel PCR 02/13/25 02/12/25 02/12/25 05:36 22:40 17:22 WBC Cancelled RBC Cancelled Hgb Cancelled Hct Cancelled MCV Cancelled MCH Cancelled MCHC Cancelled RDW Std Deviation Cancelled RDW Coeff of Teresa Cancelled Plt Count Cancelled MPV Cancelled Immature Gran % (Auto) Neut % (Auto) Lymph % (Auto) Alexander % (Auto) Eos % (Auto) Baso % (Auto) Neut # (Auto) Lymph # (Auto) Alexander # (Auto) Eos # (Auto) Baso # (Auto) Immature Gran # (Auto) Absolute Nucleated RBC Cancelled Nucleated RBC % (auto) Cancelled Platelet Estimate Cancelled Sodium 142 Potassium 4.4 Chloride 119 H Carbon Dioxide 17 L Anion Gap 6 BUN 27 H Creatinine 2.18 H Est Cr Clr Drug Dosing 21.6 eGFR 23.64 BUN/Creatinine Ratio 12.4 Glucose 104 H Estimat Average Glucose Hemoglobin A1c Calcium 8.7 Magnesium 2.2 Troponin I High Sens 21.1 H 23.0 H D Urine Color Urine Appearance Urine pH Ur Specific [place] Urine Protein Urine Glucose (UA) Urine Ketones Urine Blood Urine Nitrite Urine Bilirubin Urine Urobilinogen Ur Leukocyte Esterase Urine WBC (Auto) Urine RBC (Auto) U Hyaline Cast (Auto) U Epithel Cells (Auto) Urine Bacteria (Auto) Stl C. diff Tox B Gene Enterobacterales (PCR) E. coli (PCR) mcr-1 Colistin Res Gene PCR blaIMP Car res Gene PCR KPC-Carbap Res Gene PCR blaNDM Car Res Gene PCR OXA-48 Carbapenem Resis Gene (PCR) blaVIM Car Res Gene PCR CTX-M Gene Resistance (PCR) Bld Cult ID Panel PCR 02/12/25 02/12/25 16:02 11:49 WBC RBC Hgb Hct MCV MCH MCHC RDW Std Deviation RDW Coeff of Teresa Plt Count MPV Immature Gran % (Auto) Neut % (Auto) Lymph % (Auto) Alexander % (Auto) Eos % (Auto) Baso % (Auto) Neut # (Auto) Lymph # (Auto) Alexander # (Auto) Eos # (Auto) Baso # (Auto) Immature Gran # (Auto) Absolute Nucleated RBC Nucleated RBC % (auto) Platelet Estimate Sodium Potassium Chloride Carbon Dioxide Anion Gap BUN Creatinine Est Cr Clr Drug Dosing eGFR BUN/Creatinine Ratio Glucose Estimat Average Glucose Hemoglobin A1c Calcium Magnesium Troponin I High Sens Urine Color Yellow Urine Appearance Turbid A Urine pH 6.5 Ur Specific [place] 1.011 Urine Protein 3+ H Urine Glucose (UA) Trace H Urine Ketones Negative Urine Blood 2+ H Urine Nitrite Negative Urine Bilirubin Negative Urine Urobilinogen Negative Ur Leukocyte Esterase 3+ H Urine WBC (Auto) >50 H Urine RBC (Auto) 6-10 H U Hyaline Cast (Auto) 11-20 H U Epithel Cells (Auto) 0-2 Urine Bacteria (Auto) 4+ H Stl C. diff Tox B Gene Enterobacterales (PCR) DETECTED A E. coli (PCR) DETECTED A mcr-1 Colistin Res Gene PCR Not Detected blaIMP Car res Gene PCR Not Detected KPC-Carbap Res Gene PCR Not Detected blaNDM Car Res Gene PCR Not Detected OXA-48 Carbapenem Resis Gene (PCR) Not Detected blaVIM Car Res Gene PCR Not Detected CTX-M Gene Resistance (PCR) Not Detected Bld Cult ID Panel PCR See PCR Comment Diagnostic Findings Chest X-ray 02/12/25 Heart size and pulmonary vasculature are normal. No effusion, consolidation, or pneumothorax. Stable moderate hiatal hernia CT abd/pelvis 02/12/2025 IMPRESSION: 1. Resolution of left hydronephrosis following interval placement of a percutaneous nephrostomy. 2. Persistent bilateral urothelial thickening and bilateral wall thickening. This is likely chronic although could be correlated with urinalysis. 3. Bilateral nephrolithiasis. No ureteral calculi. 4. Minimal right lower lobe groundglass opacity which favors a mild infectious process. Medications Administered Home Medications Medication Instructions Recorded Confirmed Last Taken atorvastatin 40 mg tablet (Lipitor) 40 mg PO QAM 07/12/18 02/12/25 02/11/25 pantoprazole 40 mg tablet,delayed 40 mg PO BID 07/12/18 02/12/25 02/11/25 release (Protonix) riboflavin (vitamin B2) 400 mg 400 mg PO QAM 07/12/18 02/12/25 02/11/25 tablet cholecalciferol (vitamin D3) 50 2,000 unit PO QAM 05/16/19 02/12/25 02/11/25 mcg (2,000 unit) capsule (Vitamin D3) oxcarbazepine 300 mg tablet 300 mg PO BID 12/22/21 02/12/25 02/11/25 loperamide 2 mg capsule 2 mg PO TID PRN diarrhea #30 caps 01/18/22 02/12/25 Unknown magnesium oxide 400 mg (241.3 mg 400 mg PO DAILY 11/02/22 02/12/25 02/11/25 magnesium) tablet acetaminophen 325 mg tablet 650 mg (2 x 325 mg) PO Q8H PRN 11/09/22 02/12/25 Unknown fever or pain #60 tabs cyanocobalamin (vitamin B-12) 100 100 mcg PO QAM #30 tabs 11/09/22 02/12/25 02/11/25 mcg tablet (Vitamin B-12) midodrine 5 mg tablet 5 mg PO TID #90 tabs 04/21/23 02/12/25 02/11/25 metoprolol succinate 25 mg 25 mg PO BID 12/14/23 02/12/25 02/11/25 tablet,extended release 24 hr tamsulosin 0.4 mg capsule 0.4 mg PO DAILY #30 caps 12/21/24 02/12/25 02/11/25 hydroxyzine HCl 25 mg tablet 25 mg PO HS 02/12/25 02/12/25 02/11/25 oxybutynin chloride 5 mg tablet 5 mg PO QAM 02/12/25 02/12/25 02/11/25 Active Medications Generic Name Dose Route Start Last Admin Trade Name Freq PRN Reason Stop Dose Admin Atorvastatin Calcium 40 mg 02/13/25 09:00 02/13/25 08:41 Atorvastatin 40 Mg Tab PO 03/15/25 08:59 40 mg QAM MARLA Administration Ciprofloxacin 2 drops 02/12/25 17:00 02/13/25 12:22 Ciprofloxacin Hcl 0.3% Op Soln 2.5 Ml Btl OPL 02/17/25 16:59 2 drops Q4H MARLA Administration Doxycycline Hyclate 100 mg 02/12/25 21:00 02/13/25 08:41 Doxycycline Hyclate 100 Mg Cap PO 02/17/25 20:59 100 mg BID MARLA Administration Heparin Sodium (Porcine) 5,000 units 02/12/25 16:54 02/13/25 13:29 Heparin Sod 5,000 Unit/0.5 Ml Vial SQ 03/14/25 16:53 Not Given Q8 MARLA Hydroxyzine HCl 25 mg 02/12/25 21:00 02/12/25 21:14 Hydroxyzine Hcl 25 Mg Tab PO 03/14/25 20:59 25 mg HS MARLA Administration Magnesium Oxide 400 mg 02/13/25 09:00 02/13/25 08:40 Magnesium Oxide 400 Mg Tab PO 03/15/25 08:59 400 mg DAILY MARLA Administration Metoprolol Succinate 25 mg 02/12/25 21:00 02/13/25 08:41 Metoprolol Succ 25mg Ext Rel Tab PO 03/14/25 20:59 25 mg BID MRALA Administration Midodrine 5 mg 02/12/25 21:00 02/13/25 13:31 Midodrine Hcl 2.5 Mg Tab PO 03/14/25 20:59 5 mg TID MARLA Administration Ondansetron HCl 4 mg 02/12/25 15:02 02/13/25 08:48 Ondansetron Inj 2 Mg/Ml 2 Ml Vial IV 03/14/25 15:01 4 mg Q6H PRN Administration Nausea And Vomiting Oxcarbazepine 300 mg 02/12/25 21:00 02/13/25 08:41 Oxcarbazepine 150 Mg Tablet PO 03/14/25 20:59 300 mg BID MARLA Administration Oxybutynin Chloride 5 mg 02/13/25 09:00 02/13/25 08:41 Oxybutynin Chloride 5 Mg Tab PO 03/15/25 08:59 5 mg QAM MARLA Administration Pantoprazole Sodium 40 mg 02/12/25 21:00 02/13/25 08:41 Pantoprazole 40 Mg Tab PO 03/14/25 20:59 40 mg BID MARLA Administration Tamsulosin HCl 0.4 mg 02/13/25 09:00 02/13/25 08:41 Tamsulosin Hcl 0.4 Mg Cap PO 03/15/25 08:59 0.4 mg DAILY MARLA Administration
[2025-02-13] MEDS: cefTRIAXone SODIUM 2,000 MG/50 ML BAG IV SCH (16:59)
[2025-02-14] MEDS ORDERED: Nursing to Pharmacy Communication SCH (05:45)
--- NOTE | 2025-02-14 09:24 | Cardiology Progress Note ---
Date of Service February 14, 2025 Assessment & Plan (1) Sepsis: Plan: -E. coli , ESBL on urine culture, E. 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 Patient unable to take AM medications, subsequently developing tachypalpitations with probable adenosine responsive SVT observed in the ER. High-sensitivity troponin I minimally e levated (5.7 -> 23.0 -> 21.1 pg/mL) as expected given infection, CKD, tachyarrhythmia. EKG without acute change. Resting echocardiography with normal wall motion, EF 60 to 65%. Headache and musculoskeletal chest discomfort noted this AM. Recommendations: * Treatment of underlying infectious process as per Hospitalist Service * Continue metoprolol succinate 25 mg twice a day * General measures advised regarding the musculoskeletal chest discomfort * Non-contrast CT of the head requested, RE: headache * Please contact with any cardiology questions or concerns. Admission and Anticipated Discharge Date Admission Date: February 12, 2025 Supervising Physician Co-Signing Physician Notes Attending Attestation: Case reviewed with the advanced practitioner. I have personally performed a history and physical examination on the patient. I have reviewed the advanced practitioner's documentation on the date of service referenced in note, and I agree with, and take responsibility for the plan of care. Subjective: Sinus rhythm in 70s noted. No additional sinus tachycardia or SVT. Subjective palpitation improved. Data: CT of the brain obtained 02/14/2025 was negative for any acute intracranial pathology EKG performed 02/14/2025 given treatment with ciprofloxacin revealed sinus rhythm at 74 bpm with sinus arrhythmia, corrected QT interval was normal 415 ms Impression/ Plan: Continue antibiotics. Continue metoprolol at current dose. Cardiology to sign off. Call with questions or concerns. Abdias Harmon, Subjective Patient seen and examined. Chart, medications, telemetry reviewed. Headache this AM. No blurred vision, double vision, dizziness, speech issues, or unilateral complaints to suggest TIA/CVA. + history of migraines with current headache similar. Left-sided chest discomfort - tender to palpation. No palpitations, dyspnea, orthopnea, or PND Telemetry: Currently sinus rhythm at 60 bpm. Rare to occasional ventricular ectopy. No significant arrhythmias over the past 24 hours. Review of Systems Review of Systems: Complete Review of Systems is as stated above, negative, noncontributory Physical Exam Physical Exam: General: NAD. HENT: Normocephalic. Atraumatic. PER. Conjunctiva pink, sclera clear. Neck: No overt JVD. Heart: Regular at 72 bpm. Grade I-II/ systolic murmur at the left mid sternal border. Lungs: Diminished but clear to auscultation. Abdomen: +BS. Soft. No overt masses. Left sided nephrostomy Extremities: No significant edema. No cyanosis. Results & Data Vital Signs (Past 12 Hours) Vital Signs Temp Pulse Pulse Resp BP Pulse Ox O2 Del Method 02/14/25 08:00 36.7 C 76 18 114/65 97 Room Air 02/14/25 02:53 36.7 C 66 18 107/71 98 Room Air 02/13/25 23:00 79 02/13/25 22:34 36.7 C 69 18 134/82 96 Room Air 02/13/25 21:30 Room Air Laboratory Results Intake and Output 02/13/25 02/14/25 02/14/25 22:59 06:59 14:59 Intake Total 150 / 2450 200 / 2450 Output Total 400 / 803 Balance 150 / 1647 -200 / 1647 Intake: IV 50 / 2150 cefTRIAXone SODIUM 2,000 mg In 50 / 50 50 ml @ 100 mls/hr IV Q24H MARLA Rx#:[id number] Oral 100 / 300 200 / 300 Output: Urine Amount (Catheter) 400 / 800 External 300 / 700 Left Nephrostomy 100 / 100 Other: # Unmeasured Voids 1 Weight 80.7 kg Weight Measurement Method Built in [facility]
[2025-02-14] MEDS: ACETAMINOPHEN 1,000 MG/100 ML VIAL IV STA (09:46)
[2025-02-14] MEDS: MIDODRINE HCL 2.5 MG TAB PO SCH (09:50)
[2025-02-14] MEDS: CIPROFLOXACIN / D5W 400 MG/200 ML BAG IV SCH (09:53)
--- NOTE | 2025-02-14 10:34 | CT Scan Report ---
CT SCAN OF THE BRAIN WITHOUT IV CONTRAST CLINICAL HISTORY: Headache. COMPARISON STUDY: Head CT April 13, 2023. TECHNIQUE: Unenhanced axial CT scan of the brain was performed from the vertex to the skull base. A dose lowering technique was utilized adhering to the principles of ALARA. CT DOSE: 580.53 mGy.cm FINDINGS: Brain parenchyma: No acute intracranial hemorrhage, midline shift or mass effect is present. Brantley-whi te matter differentiation is preserved. There are no extra-axial fluid collections. There are no find ings to suggest acute dural sinus thrombosis or acute territorial infarct. Mild white matter hypodens ity suggests small vessel disease. These are unchanged. Ventricles, sulci, cisterns: There is no hydrocephalus. The basal cisterns are patent. Calvarium: Unremarkable. Sinuses and mastoids: The visualized paranasal sinuses are clear. The mastoid air cells are well pneu matized. Orbits: The bony orbits are grossly intact. IMPRESSION: No acute intracranial findings. ACT 112: Negative or not required by law. Electronically signed by: Abdirashid Motta M.D. 02/14/2025 10:33 AM
--- NOTE | 2025-02-14 10:41 | Hospitalist Progress Note ---
Date of Service February 14, 2025 Assessment & Plan (1) Sepsis: (2) Nephrostomy present: (3) Complicated UTI (urinary tract infection): (4) SVT (supraventricular tachycardia): (5) Metabolic acidosis, normal anion gap (NAG): (6) CKD (chronic kidney disease), stage IV: (7) Chronic diarrhea: (8) Bipolar disorder: Plan Ms Nesbitt is a 69-year-old female with PMH HLD, COPD, CALI, asthma, CKD stage IV, sinus tachycardia, GERD, stress-induced catecholamine mediated cardiomyopathy in 2015 with normalization of LV systolic function, history of recurrent complicated UTIs with ureteral obstruction/ left hydronephrosis/ large parapelvic cyst [place] [facility] [place] listed admitted for sepsis due to suspected complicated cystitis. Patient with headache this am, resolved with conservative management. CT head ordered by Cards, no neurologic deficits noted, normal scan. Headache resolved in afternoon. 45 min discussion with family regarding care plan--daughter and at bedside. #Sepsis 2/2 complicated cystitis #Gram negative bacteremia, Ecoli ESBL (x ) E coli sepsis likely due to E coli ESBL UTI due to nephrostomy catheter Hx ureteral obstruction/ left hydronephrosis/ large parapelvic cyst s/p [place] [facility] [place] 11/2024 due to obstruction WBC 12k, lactate 1.5, SVT CT ABD/pelvis shows Resolution of left hydronephrosis following interval placement of a percutaneous nephrostomy. Persistent bilateral urothelial thickening and bilateral wall thickening. This is likely chronic although could be correlated with urinalysis. Bilateral nephrolithiasis. No ureteral calculi. Minimal right lower lobe groundglass opacity which favors a mild infectious process. Suspect urinary source +/- RLL pneumonia Patient declined biofire testing 02/12 Urine cx: e coli 02/12 Blood cx: e coli ID Consulted: plan for 14 days abx, discontinued doxy ECOLI with ESBL--discontinued CTX and transitioned to Cipro #Insomnia started melatonin #Bladder spasm continue home oxybutynin and flomax trial oxybutynin 2.5 prn #SVT Hx of sinus tach managed with metoprolol however missed a.m. medications Presented with SVT in the 160s s/p IV adenosine x 1 with improvement, likely iso sepsis from above Continue [employer] dose metoprolol succinate 25 mg BID ECHO reviewed: PASP 50mmhg, EF 60-65% Cardiology recommendations reviewed with plans to continue current mgmt #Metabolic acidosis, normal anion gap (NAG): #CKD IV at baseline Cr ~2.4 discontinue IVF for risk of overload #Chronic diarrhea: At baseline per patient, no indication for stool testing at this time # Bipolar disorder: Continue [employer]IST oxcarbamazepine DVT ppx: SQ heparin Pending ID recs and PT/OT I spent a total of 65 minutes coordinating, documenting, and providing care for this patient excluding time spent in the performance of separately billed services. Admission and Anticipated Discharge Date Admission Date: February 12, 2025 Subjective NAEO reports headache this am and generalized itching Notes that she feels groggy however on re-exam much improved Physical Exam Constitutional: WD/WN, vitals as above Respiratory: normal respiratory effort, lungs clear to auscultation Cardiovascular: RRR, no murmur, no edema Gastrointestinal (Abdomen): normal bowel sounds, soft, nontender, no hepatosplenomegaly Results & Data Results & Data Vital Signs (Past 12 Hours) Vital Signs Temp Pulse Pulse Resp BP Pulse Ox O2 Del Method 02/14/25 08:00 36.7 C 76 18 114/65 97 Room Air 02/14/25 02:53 36.7 C 66 18 107/71 98 Room Air 02/13/25 23:00 79 Medications Administered Home Medications Medication Instructions Recorded Confirmed Last Taken atorvastatin 40 mg tablet (Lipitor) 40 mg PO QAM 07/12/18 02/12/25 02/11/25 pantoprazole 40 mg tablet,delayed 40 mg PO BID 07/12/18 02/12/25 02/11/25 release (Protonix) riboflavin (vitamin B2) 400 mg 400 mg PO QAM 07/12/18 02/12/25 02/11/25 tablet cholecalciferol (vitamin D3) 50 2,000 unit PO QAM 05/16/19 02/12/25 02/11/25 mcg (2,000 unit) capsule (Vitamin D3) oxcarbazepine 300 mg tablet 300 mg PO BID 12/22/21 02/12/25 02/11/25 loperamide 2 mg capsule 2 mg PO TID PRN diarrhea #30 caps 01/18/22 02/12/25 Unknown magnesium oxide 400 mg (241.3 mg 400 mg PO DAILY 11/02/22 02/12/25 02/11/25 magnesium) tablet acetaminophen 325 mg tablet 650 mg (2 x 325 mg) PO Q8H PRN 11/09/22 02/12/25 Unknown fever or pain #60 tabs cyanocobalamin (vitamin B-12) 100 100 mcg PO QAM #30 tabs 11/09/22 02/12/25 02/11/25 mcg tablet (Vitamin B-12) midodrine 5 mg tablet 5 mg PO TID #90 tabs 04/21/23 02/12/25 02/11/25 metoprolol succinate 25 mg 25 mg PO BID 12/14/23 02/12/25 02/11/25 tablet,extended release 24 hr tamsulosin 0.4 mg capsule 0.4 mg PO DAILY #30 caps 12/21/24 02/12/25 02/11/25 hydroxyzine HCl 25 mg tablet 25 mg PO HS 02/12/25 02/12/25 02/11/25 oxybutynin chloride 5 mg tablet 5 mg PO QAM 02/12/25 02/12/25 02/11/25 Active Medications Generic Name Dose Route Start Last Admin Trade Name Freq PRN Reason Stop Dose Admin Atorvastatin Calcium 40 mg 02/13/25 09:00 02/14/25 09:51 Atorvastatin 40 Mg Tab PO 03/15/25 08:59 40 mg QAM MARLA Administration Ciprofloxacin 2 drops 02/12/25 17:00 02/14/25 11:57 Ciprofloxacin Hcl 0.3% Op Soln 2.5 Ml Btl OPL 02/17/25 16:59 2 drops Q4H MARLA Administration Heparin Sodium (Porcine) 5,000 units 02/12/25 16:54 02/14/25 05:26 Heparin Sod 5,000 Unit/0.5 Ml Vial SQ 03/14/25 16:53 Not Given Q8 MARLA Hydroxyzine HCl 25 mg 02/12/25 21:00 02/13/25 21:45 Hydroxyzine Hcl 25 Mg Tab PO 03/14/25 20:59 25 mg HS MARLA Administration Ciprofloxacin 400 mg in 200 mls @ 100 mls/hr 02/14/25 09:00 02/14/25 09:53 Cipro / D5w IV 02/24/25 08:59 100 mls/hr Q24H MARLA Administration Protocol Magnesium Oxide 400 mg 02/13/25 09:00 02/14/25 09:53 Magnesium Oxide 400 Mg Tab PO 03/15/25 08:59 400 mg DAILY MARLA Administration Metoprolol Succinate 25 mg 02/12/25 21:00 02/14/25 09:51 Metoprolol Succ 25mg Ext Rel Tab PO 03/14/25 20:59 25 mg BID MARLA Administration Midodrine 5 mg 02/14/25 08:00 02/14/25 11:57 Midodrine Hcl 2.5 Mg Tab PO 03/16/25 07:59 5 mg TID@0800,1200,1700 MARLA Administration Ondansetron HCl 4 mg 02/12/25 15:02 02/13/25 17:04 Ondansetron Inj 2 Mg/Ml 2 Ml Vial IV 03/14/25 15:01 4 mg Q6H PRN Administration Nausea And Vomiting Oxcarbazepine 300 mg 02/12/25 21:00 02/14/25 09:50 Oxcarbazepine 150 Mg Tablet PO 03/14/25 20:59 300 mg BID MARLA Administration Oxybutynin Chloride 5 mg 02/13/25 09:00 02/14/25 09:51 Oxybutynin Chloride 5 Mg Tab PO 03/15/25 08:59 5 mg QAM MARLA Administration Pantoprazole Sodium 40 mg 02/12/25 21:00 02/14/25 09:50 Pantoprazole 40 Mg Tab PO 03/14/25 20:59 40 mg BID MARLA Administration Tamsulosin HCl 0.4 mg 02/13/25 09:00 02/14/25 09:51 Tamsulosin Hcl 0.4 Mg Cap PO 03/15/25 08:59 0.4 mg DAILY MARLA Administration
[2025-02-14] MEDS: oxyBUTYnin chloride 5 MG TAB PO STA (13:44)
[2025-02-14] MEDS: diphenhydrAMINE 50 MG/ML VIAL IV STA (13:44)
[2025-02-14] MEDS: MELATONIN 3 MG TAB PO SCH (21:07)
[2025-02-15] MEDS: ACETAMINOPHEN 1,000 MG/100 ML VIAL IV STA (06:16)
[2025-02-15 06:50] LABS: Hematocrit (blood only) 27.1 % (37.0-47.0); Hemoglobin 8.4 g/dl (12.0-16.0); Mean Corpuscular Hemoglobin 28.7 pg (25.0-34.0); Mean Corpuscular Volume 92.5 fL (80.0-100.0); Mean Platelet Volume 10.8 fL (9.4-12.4); Platelet Count 193 K/uL (130-400); RDW Coefficient of Variation 13.4 % (11.5-14.5); RDW Standard Deviation 45.8 fL (36.4-46.3); Red Blood Count 2.93 M/uL (4.20-5.40); White Blood Count 5.88 K/ul (4.8-10.8)
[2025-02-15 07:04] LABS: Magnesium 1.9 mg/dl (1.7-2.4); Potassium 4.2 mmol/L (3.5-5.1)
[2025-02-15 07:10] LABS: BUN Creatinine Ratio 9.9 (10-20); Creatinine Clr Calc Pharmacy 20.7 ml/min; Phosphorus 3.7 mg/dl (2.5-4.9)
[2025-02-15] MEDS: BUTALBITAL/ACETAMIN/CAFFEINE TAB PO STA (10:48)
--- NOTE | 2025-02-15 11:10 | Hospitalist Progress Note ---
Date of Service February 15, 2025 Assessment & Plan (1) Sepsis: (2) Nephrostomy present: (3) Complicated UTI (urinary tract infection): (4) SVT (supraventricular tachycardia): (5) Metabolic acidosis, normal anion gap (NAG): (6) CKD (chronic kidney disease), stage IV: (7) Chronic diarrhea: (8) Bipolar disorder: Plan Ms Nesbitt is a 69-year-old female with PMH HLD, COPD, CALI, asthma, CKD stage IV, sinus tachycardia, GERD, stress-induced catecholamine mediated cardiomyopathy in 2015 with normalization of LV systolic function, history of recurrent complicated UTIs with ureteral obstruction/ left hydronephrosis/ large parapelvic cyst s/p left nephrostomy 01/[address] [facility] [place] and other problems listed admitted for sepsis due to suspected complicated cystitis. Patient initially on CTX given pansensitive UA however blood cultures with ESBL. Patient transitioned to ciprofloxacin and noted to have generalized itching therefore patient transitioned to ertapenem 500mg q24 renally dosed #Sepsis 2/2 complicated cystitis #Gram negative bacteremia, Ecoli ESBL (x ) E coli sepsis likely due to E coli ESBL UTI due to nephrostomy catheter Hx ureteral obstruction/ left hydronephrosis/ large parapelvic cyst s/p left nephrostomy 01/[address] [facility] [place] and exchanged 11/2024 due to obstruction WBC 12k, lactate 1.5, SVT CT ABD/pelvis shows Resolution of left hydronephrosis following interval placement of a percutaneous nephrostomy. Persistent bilateral urothelial thickening and bilateral wall thickening. This is likely chronic although could be correlated with urinalysis. Bilateral nephrolithiasis. No ureteral calculi. Minimal right lower lobe groundglass opacity which favors a mild infectious process. Suspect urinary source +/- RLL pneumonia Patient declined biofire testing 02/12 Urine cx: e coli 02/12 Blood cx: e coli ID Consulted: plan for 14 days abx, discontinued doxy ECOLI with ESBL--discontinued CTX and transitioned to Cipro 02/14; itching noted with cipro, therefore discontinued Start Ertapenem 500mg q 24 renally dosed, plan for 14 days will need midline therefore repeat blood culture ordered EOT 03/01 will likely go with Home Health #Insomnia continue melatonin #LLQ spasms continue home oxybutynin and flomax trial oxybutynin 2.5 prn unsuccessful trial bentyl for possible bowel spasm iso chronic diarrhea #SVT Hx of sinus tach managed with metoprolol however missed a.m. medications Presented with SVT in the 160s s/p IV adenosine x 1 with improvement, likely iso sepsis from above Continue RECAPPER dose metoprolol succinate 25 mg BID ECHO reviewed: PASP 50mmhg, EF 60-65% Cardiology recommendations reviewed with plans to continue current mgmt #Metabolic acidosis, normal anion gap (NAG): #CKD IV at baseline Cr ~2.4 discontinue IVF for risk of overload #Chronic diarrhea: At baseline per patient, no indication for stool testing at this time # Bipolar disorder: Continue RECAPPER oxcarbamazepine DVT ppx: SQ heparin Pending ID recs and PT/OT I spent a total of 60 minutes coordinating, documenting, and providing care for this patient excluding time spent in the performance of separately billed services. Admission and Anticipated Discharge Date Admission Date: February 12, 2025 Subjective reports daily morning headaches chronically, history of cali but cannot tolerate cpap denies any fevers chills or new symptoms at this time Physical Exam Constitutional: WD/WN, vitals as above Respiratory: normal respiratory effort, lungs clear to auscultation Cardiovascular: RRR, no murmur, no edema Gastrointestinal (Abdomen): normal bowel sounds, soft, nontender, no hepatosplenomegaly Results & Data Results & Data Vital Signs (Past 12 Hours) Vital Signs Temp Pulse Resp BP Pulse Ox O2 Del Method 02/15/25 08:20 36.7 C 66 20 148/76 H 92 Room Air 02/15/25 03:24 36.6 C 64 16 120/69 96 Room Air 02/14/25 23:10 36.8 C 69 16 116/71 98 Room Air Laboratory Results Short CBC 02/15/25 Range/Units 05:44 WBC 5.88 (4.8-10.8) K/ul Hgb 8.4 L (12.0-16.0) g/dl Hct 27.1 L (37.0-47.0) % Plt Count 193 (130-400) K/uL BMP 02/15/25 05:44 Sodium 141 Potassium 4.2 Chloride 118 H Carbon Dioxide 16 L BUN 22 Creatinine 2.22 H Glucose 98 Calcium 9.0 Medications Administered Home Medications Medication Instructions Recorded Confirmed Last Taken atorvastatin 40 mg tablet (Lipitor) 40 mg PO QAM 07/12/18 02/12/25 02/11/25 pantoprazole 40 mg tablet,delayed 40 mg PO BID 07/12/18 02/12/25 02/11/25 release (Protonix) riboflavin (vitamin B2) 400 mg 400 mg PO QAM 07/12/18 02/12/25 02/11/25 tablet cholecalciferol (vitamin D3) 50 2,000 unit PO QAM 05/16/19 02/12/25 02/11/25 mcg (2,000 unit) capsule (Vitamin D3) oxcarbazepine 300 mg tablet 300 mg PO BID 12/22/21 02/12/25 02/11/25 loperamide 2 mg capsule 2 mg PO TID PRN diarrhea #30 caps 01/18/22 02/12/25 Unknown magnesium oxide 400 mg (241.3 mg 400 mg PO DAILY 11/02/22 02/12/25 02/11/25 magnesium) tablet acetaminophen 325 mg tablet 650 mg (2 x 325 mg) PO Q8H PRN 11/09/22 02/12/25 Unknown fever or pain #60 tabs cyanocobalamin (vitamin B-12) 100 100 mcg PO QAM #30 tabs 11/09/22 02/12/25 02/11/25 mcg tablet (Vitamin B-12) midodrine 5 mg tablet 5 mg PO TID #90 tabs 04/21/23 02/12/25 02/11/25 metoprolol succinate 25 mg 25 mg PO BID 12/14/23 02/12/25 02/11/25 tablet,extended release 24 hr tamsulosin 0.4 mg capsule 0.4 mg PO DAILY #30 caps 12/21/24 02/12/25 02/11/25 hydroxyzine HCl 25 mg tablet 25 mg PO HS 02/12/25 02/12/25 02/11/25 oxybutynin chloride 5 mg tablet 5 mg PO QAM 02/12/25 02/12/25 02/11/25 Active Medications Generic Name Dose Route Start Last Admin Trade Name Freq PRN Reason Stop Dose Admin Atorvastatin Calcium 40 mg 02/13/25 09:00 02/15/25 10:06 Atorvastatin 40 Mg Tab PO 03/15/25 08:59 40 mg QAM MARLA Administration Ciprofloxacin 2 drops 02/12/25 17:00 02/15/25 10:05 Ciprofloxacin Hcl 0.3% Op Soln 2.5 Ml Btl OPL 02/17/25 16:59 2 drops Q4H MARLA Administration Heparin Sodium (Porcine) 5,000 units 02/12/25 16:54 02/15/25 05:14 Heparin Sod 5,000 Unit/0.5 Ml Vial SQ 03/14/25 16:53 Not Given Q8 MARLA Hydroxyzine HCl 25 mg 02/12/25 21:00 02/14/25 21:09 Hydroxyzine Hcl 25 Mg Tab PO 03/14/25 20:59 25 mg HS MARLA Administration Magnesium Oxide 400 mg 02/13/25 09:00 02/15/25 11:49 Magnesium Oxide 400 Mg Tab PO 03/15/25 08:59 400 mg DAILY MARLA Administration Melatonin 9 mg 02/14/25 20:00 02/14/25 21:07 Melatonin 3 Mg Tab PO 03/16/25 19:59 9 mg DAILY@2000 MARLA Administration Metoprolol Succinate 25 mg 02/12/25 21:00 02/15/25 10:06 Metoprolol Succ 25mg Ext Rel Tab PO 03/14/25 20:59 25 mg BID MARLA Administration Midodrine 5 mg 02/14/25 08:00 02/15/25 09:56 Midodrine Hcl 2.5 Mg Tab PO 03/16/25 07:59 Not Given TID@0800,1200,1700 [facility] Ondansetron HCl 4 mg 02/12/25 15:02 02/14/25 17:06 Ondansetron Inj 2 Mg/Ml 2 Ml Vial IV 03/14/25 15:01 4 mg Q6H PRN Administration Nausea And Vomiting Oxcarbazepine 300 mg 02/12/25 21:00 02/15/25 10:08 Oxcarbazepine 150 Mg Tablet PO 03/14/25 20:59 300 mg BID MARLA Administration Oxybutynin Chloride 5 mg 02/13/25 09:00 02/15/25 10:06 Oxybutynin Chloride 5 Mg Tab PO 03/15/25 08:59 5 mg QAM MARLA Administration Pantoprazole Sodium 40 mg 02/12/25 21:00 02/15/25 10:06 Pantoprazole 40 Mg Tab PO 03/14/25 20:59 40 mg BID MARLA Administration Tamsulosin HCl 0.4 mg 02/13/25 09:00 02/15/25 10:06 Tamsulosin Hcl 0.4 Mg Cap PO 03/15/25 08:59 0.4 mg DAILY MARLA Administration
[2025-02-15] MEDS: diphenhydrAMINE 50 MG/ML VIAL IV STA (11:49)
[2025-02-15] MEDS: DICYCLOMINE HCL 10 MG CAP PO SCH (13:05)
[2025-02-15] MEDS: ERTAPENEM 1000MG 500 MG/5 ML SYR IV SCH (13:06)
[2025-02-15] MEDS: BUTALBITAL/ACETAMIN/CAFFEINE TAB PO PRN (15:07)
[2025-02-15] MEDS ORDERED: Nursing to Pharmacy Communication SCH (21:30)
--- NOTE | 2025-02-15 23:55 | Electrocardiogram Report ---
Test Reason : Blood Pressure : */* mmHG Vent. Rate : 161 BPM Atrial Rate : * BPM P-R Int : * ms QRS Dur : 60 ms QT Int : 242 ms P-R-T Axes : * -11 88 degrees QTcB Int : 396 ms Possible Sinus tachycardia Cannot rule out Anterior infarct , age undetermined Abnormal ECG When compared with ECG of 19-Nov-2024 14:44, No significant change was found Confirmed by Kalia Puente ([id number]) on 02/15/2025 11:55:06 PM Referred By: Confirmed By: Kalia Puente
--- NOTE | 2025-02-15 23:55 | Electrocardiogram Report ---
Test Reason : Blood Pressure : */* mmHG Vent. Rate : 126 BPM Atrial Rate : 126 BPM P-R Int : 148 ms QRS Dur : 60 ms QT Int : 290 ms P-R-T Axes : -2 -4 75 degrees QTcB Int : 420 ms Sinus tachycardia Cannot rule out Anterior infarct (cited on or before 12-Feb-2025) Abnormal ECG When compared with ECG of 12-Feb-2025 11:04, No significant change was found Confirmed by Kalia uPente ([id number]) on 02/15/2025 11:55:21 PM Referred By: Confirmed By: Kalia Puente
--- NOTE | 2025-02-15 23:55 | Electrocardiogram Report ---
Test Reason : Blood Pressure : */* mmHG Vent. Rate : 71 BPM Atrial Rate : 71 BPM P-R Int : 192 ms QRS Dur : 68 ms QT Int : 362 ms P-R-T Axes : 34 25 73 degrees QTcB Int : 393 ms Normal sinus rhythm Low voltage QRS Borderline ECG When compared with ECG of 12-Feb-2025 11:18, Vent. rate has decreased by 55 bpm Confirmed by Kalia Puente ([id number]) on 02/15/2025 11:55:34 PM Referred By: REFERRED SELF Confirmed By: Kalia Puente
--- NOTE | 2025-02-15 23:56 | Electrocardiogram Report ---
Test Reason : Blood Pressure : */* mmHG Vent. Rate : 74 BPM Atrial Rate : 74 BPM P-R Int : 172 ms QRS Dur : 64 ms QT Int : 374 ms P-R-T Axes : -22 16 47 degrees QTcB Int : 415 ms Normal sinus rhythm Premature atrial complexes Low voltage QRS Borderline ECG When compared with ECG of 13-Feb-2025 05:47, Premature atrial complexes are now Present Confirmed by Kalia Puente ([id number]) on 02/15/2025 11:56:13 PM Referred By: REFERRED SELF Confirmed By: Kalia Puente
[2025-02-16 06:48] LABS: Hematocrit (blood only) 30.2 % (37.0-47.0); Hemoglobin 9.3 g/dl (12.0-16.0); Mean Corpuscular Hemoglobin 28.4 pg (25.0-34.0); Mean Corpuscular Hgb Conc 30.8 g/dL (32.0-36.0); Mean Corpuscular Volume 92.4 fL (80.0-100.0); Mean Platelet Volume 10.2 fL (9.4-12.4); Platelet Count 227 K/uL (130-400); RDW Coefficient of Variation 13.4 % (11.5-14.5); RDW Standard Deviation 45.1 fL (36.4-46.3); Red Blood Count 3.27 M/uL (4.20-5.40); White Blood Count 5.43 K/ul (4.8-10.8)
[2025-02-16 07:14] LABS: BUN Creatinine Ratio 9.2 (10-20); Calcium 9.2 mg/dl (8.6-10.3); Creatinine Clr Calc Pharmacy 20.3 ml/min; Magnesium 1.9 mg/dl (1.7-2.4); Phosphorus 3.9 mg/dl (2.5-4.9); Potassium 3.8 mmol/L (3.5-5.1)
--- NOTE | 2025-02-16 10:36 | Hospitalist Progress Note ---
Date of Service February 16, 2025 Assessment & Plan (1) Sepsis: (2) Nephrostomy present: (3) Complicated UTI (urinary tract infection): (4) SVT (supraventricular tachycardia): (5) Metabolic acidosis, normal anion gap (NAG): (6) CKD (chronic kidney disease), stage IV: (7) Chronic diarrhea: (8) Bipolar disorder: Plan Ms Nesbitt is a 69-year-old female with PMH HLD, COPD, CALI, asthma, CKD stage IV, sinus tachycardia, GERD, stress-induced catecholamine mediated cardiomyopat hy in 2015 with normalization of LV systolic function, history of recurrent complicated UTIs with ureteral obstruction/ left hydronephrosis/ large parapelvic cyst s/p left nephrostomy 01/2024 at [facility] and other problems listed admitted for sepsis due to suspected complicated cystitis. Patient initially on CTX given pansensitive UA however blood cultures with ESBL. Patient transitioned to ciprofloxacin and noted to have generalized itching therefore patient transitioned to ertapenem 500mg q24 renally dosed Patient tolerated ertapenem. Patient with USGIV on L forearm placed 02/15 and good for 29 days. Patient will discharge with HH for ertapenem until 03/01 Pending nursing teaching for home antibiotics. Downgrade to med/surg while awaiting dispo #Sepsis 2/2 complicated cystitis resolving #Gram negative bacteremia, Ecoli ESBL (x ) E coli sepsis likely due to E coli ESBL UTI due to nephrostomy catheter Hx ureteral obstruction/ left hydronephrosis/ large parapelvic cyst s/p left nephrostomy 01/2024 at [facility] and exchanged 11/2024 due to obstruction WBC 12k, lactate 1.5, SVT CT ABD/pelvis shows Resolution of left hydronephrosis following interval placement of a percutaneous nephrostomy. Persistent bilateral urothelial thickening and bilateral wall thickening. This is likely chronic although could be correlated with urinalysis. Bilateral nephrolithiasis. No ureteral calculi. Minimal right lower lobe groundglass opacity which favors a mild infectious process. Suspect urinary source +/- RLL pneumonia Patient declined biofire testing 02/12 Urine cx: e coli 02/12 Blood cx: e coli ID Consulted: plan for 14 days abx, discontinued doxy ECOLI with ESBL--discontinued CTX and transitioned to Cipro 02/14; itching noted with cipro, therefore discontinued ContinueErtapenem 500mg q 24 renally dosed, plan for 14 days midline not needed as USGIV placed 02/15, awaiting HH to visit and for teaching Medically stable for discharge. #Insomnia continue melatonin #LLQ spasms continue home oxybutynin and flomax trial oxybutynin 2.5 prn unsuccessful trial bentyl for possible bowel spasm iso chronic diarrhea #SVT Hx of sinus tach managed with metoprolol however missed a.m. medications Presented with SVT in the 160s s/p IV adenosine x 1 with improvement, likely iso sepsis from above Continue PIPE [employer] GAUGER dose metoprolol succinate 25 mg BID ECHO reviewed: PASP 50mmhg, EF 60-65% Cardiology recommendations reviewed with plans to continue current mgmt #Metabolic acidosis, normal anion gap (NAG): #CKD IV at baseline Cr ~2.4 discontinue IVF for risk of overload #Chronic diarrhea: At baseline per patient, no indication for stool testing at this time # Bipolar disorder: Continue PIPE [employer] GAUGER oxcarbamazepine Home health on discharge with IV abx x 14 days I spent a total of 65 minutes coordinating, documenting, and providing care for this patient excluding time spent in the performance of separately billed services. Admission and Anticipated Discharge Date Admission Date: February 12, 2025 Subjective Reports feeling better today overall and more energetic Denies any new acute concerns or complaints Working to get home health coordinated with Case management patient verbalized understanding of plan Physical Exam Constitutional: WD/WN, vitals as above Respiratory: normal respiratory effort, lungs clear to auscultation Cardiovascular: RRR, no murmur, no edema Gastrointestinal (Abdomen): normal bowel sounds, soft, nontender, no hepatosplenomegaly Results & Data Results & Data Vital Signs (Past 12 Hours) Vital Signs Temp Pulse Pulse Resp BP Pulse Ox O2 Del Method 02/16/25 09:00 82 18 110/82 96 Room Air 02/16/25 07:00 75 02/16/25 05:10 36.6 C 70 16 110/68 94 Room Air 02/16/25 02:00 73 Laboratory Results Short CBC 02/16/25 Range/Units 06:09 WBC 5.43 (4.8-10.8) K/ul Hgb 9.3 L (12.0-16.0) g/dl Hct 30.2 L (37.0-47.0) % Plt Count 227 (130-400) K/uL BMP 02/16/25 06:09 Sodium 141 Potassium 3.8 Chloride 116 H Carbon Dioxide 18 L BUN 21 Creatinine 2.28 H Glucose 96 Calcium 9.2 Medications Administered Home Medications Medication Instructions Recorded Confirmed Last Taken atorvastatin 40 mg tablet (Lipitor) 40 mg PO QAM 07/12/18 02/12/25 02/11/25 pantoprazole 40 mg tablet,delayed 40 mg PO BID 07/12/18 02/12/25 02/11/25 release (Protonix) riboflavin (vitamin B2) 400 mg 400 mg PO QAM 07/12/18 02/12/25 02/11/25 tablet cholecalciferol (vitamin D3) 50 2,000 unit PO QAM 05/16/19 02/12/25 02/11/25 mcg (2,000 unit) capsule (Vitamin D3) oxcarbazepine 300 mg tablet 300 mg PO BID 12/22/21 02/12/25 02/11/25 loperamide 2 mg capsule 2 mg PO TID PRN diarrhea #30 caps 01/18/22 02/12/25 Unknown magnesium oxide 400 mg (241.3 mg 400 mg PO DAILY 11/02/22 02/12/25 02/11/25 magnesium) tablet acetaminophen 325 mg tablet 650 mg (2 x 325 mg) PO Q8H PRN 11/09/22 02/12/25 Unknown fever or pain #60 tabs cyanocobalamin (vitamin B-12) 100 100 mcg PO QAM #30 tabs 11/09/22 02/12/25 02/11/25 mcg tablet (Vitamin B-12) midodrine 5 mg tablet 5 mg PO TID #90 tabs 04/21/23 02/12/25 02/11/25 metoprolol succinate 25 mg 25 mg PO BID 12/14/23 02/12/25 02/11/25 tablet,extended release 24 hr tamsulosin 0.4 mg capsule 0.4 mg PO DAILY #30 caps 12/21/24 02/12/25 02/11/25 hydroxyzine HCl 25 mg tablet 25 mg PO HS 02/12/25 02/12/25 02/11/25 oxybutynin chloride 5 mg tablet 5 mg PO QAM 02/12/25 02/12/25 02/11/25 Active Medications Generic Name Dose Route Start Last Admin Trade Name Freq PRN Reason Stop Dose Admin Acetaminophen/Butalbital/Caffeine 1 tab 02/15/25 10:08 02/16/25 02:15 Butalbital/Acetamin/Caffeine Tab PO 03/17/25 10:07 1 tab Q4H PRN Administration Headache Atorvastatin Calcium 40 mg 02/13/25 09:00 02/16/25 08:21 Atorvastatin 40 Mg Tab PO 03/15/25 08:59 40 mg QAM MARLA Administration Ciprofloxacin 2 drops 02/12/25 17:00 02/16/25 08:19 Ciprofloxacin Hcl 0.3% Op Soln 2.5 Ml Btl OPL 02/17/25 16:59 2 drops Q4H MARLA Administration Dicyclomine HCl 10 mg 02/15/25 13:00 02/16/25 08:22 Dicyclomine Hcl 10 Mg Cap PO 03/17/25 12:59 10 mg QID MARLA Administration Heparin Sodium (Porcine) 5,000 units 02/12/25 16:54 02/16/25 06:18 Heparin Sod 5,000 Unit/0.5 Ml Vial SQ 03/14/25 16:53 Not Given Q8 MARLA Hydroxyzine HCl 25 mg 02/12/25 21:00 02/15/25 22:16 Hydroxyzine Hcl 25 Mg Tab PO 03/14/25 20:59 25 mg HS MARLA Administration Magnesium Oxide 400 mg 02/13/25 09:00 02/16/25 08:31 Magnesium Oxide 400 Mg Tab PO 03/15/25 08:59 400 mg DAILY MARLA Administration Metoprolol Succinate 25 mg 02/12/25 21:00 02/16/25 08:22 Metoprolol Succ 25mg Ext Rel Tab PO 03/14/25 20:59 25 mg BID MARAL Administration Midodrine 5 mg 02/14/25 08:00 02/16/25 08:20 Midodrine Hcl 2.5 Mg Tab PO 03/16/25 07:59 5 mg TID@0800,1200,1700 MARLA Administration Ondansetron HCl 4 mg 02/12/25 15:02 02/16/25 08:16 Ondansetron Inj 2 Mg/Ml 2 Ml Vial IV 03/14/25 15:01 4 mg Q6H PRN Administration Nausea And Vomiting Oxcarbazepine 300 mg 02/12/25 21:00 02/16/25 08:20 Oxcarbazepine 150 Mg Tablet PO 03/14/25 20:59 300 mg BID MARLA Administration Oxybutynin Chloride 5 mg 02/13/25 09:00 02/16/25 08:23 Oxybutynin Chloride 5 Mg Tab PO 03/15/25 08:59 5 mg QAM MARLA Administration Pantoprazole Sodium 40 mg 02/12/25 21:00 02/16/25 08:22 Pantoprazole 40 Mg Tab PO 03/14/25 20:59 40 mg BID MARLA Administration Tamsulosin HCl 0.4 mg 02/13/25 09:00 02/16/25 08:23 Tamsulosin Hcl 0.4 Mg Cap PO 03/15/25 08:59 0.4 mg DAILY MARLA Administration
[2025-02-16] MEDS: ERTAPENEM 500MG 500 MG/5 ML SYR IV SCH (12:55)
[2025-02-16] MEDS: MELATONIN 3 MG TAB PO SCH (21:56)
[2025-02-17 06:26] LABS: Hematocrit (blood only) 30.8 % (37.0-47.0); Hemoglobin 9.6 g/dl (12.0-16.0); Mean Corpuscular Hemoglobin 28.9 pg (25.0-34.0); Mean Corpuscular Hgb Conc 31.2 g/dL (32.0-36.0); Mean Corpuscular Volume 92.8 fL (80.0-100.0); Platelet Count 238 K/uL (130-400); RDW Coefficient of Variation 13.4 % (11.5-14.5); RDW Standard Deviation 45.5 fL (36.4-46.3); Red Blood Count 3.32 M/uL (4.20-5.40); White Blood Count 5.73 K/ul (4.8-10.8)
[2025-02-17 06:56] LABS: BUN Creatinine Ratio 10.8 (10-20); Calcium 9.2 mg/dl (8.6-10.3); Creatinine Clr Calc Pharmacy 19.9 ml/min; Magnesium 1.7 mg/dl (1.7-2.4); Phosphorus 3.9 mg/dl (2.5-4.9); Potassium 4.1 mmol/L (3.5-5.1)
--- NOTE | 2025-02-17 07:23 | Electrocardiogram Report ---
Test Reason : Blood Pressure : */* mmHG Vent. Rate : 84 BPM Atrial Rate : 84 BPM P-R Int : 178 ms QRS Dur : 64 ms QT Int : 346 ms P-R-T Axes : 10 12 44 degrees QTcB Int : 408 ms Normal sinus rhythm Early R wave transistion in the right precordial leads When compared with ECG of 14-Feb-2025 05:25, No significant change was found Confirmed by Jas Lazcano ([id number] on 02/17/2025 7:22:54 AM Referred By: REFERRED SELF Confirmed By: Jas Lazcano
--- NOTE | 2025-02-17 15:40 | Hospitalist Progress Note ---
Date of Service February 17, 2025 Assessment & Plan (1) Sepsis: (2) Nephrostomy present: (3) Complicated UTI (urinary tract infection): (4) SVT (supraventricular tachycardia): (5) Metabolic acidosis, normal anion gap (NAG): (6) CKD (chronic kidney disease), stage IV: (7) Chronic diarrhea: (8) Bipolar disorder: Plan Ms Nesbitt is a 69-year-old female with PMH HLD, COPD, CALI, asthma, CKD stage IV, sinus tachycardia, GERD, stress-induced catecholamine mediated cardiomyopat hy in 2015 with normalization of LV systolic function, history of recurrent complicated UTIs with ureteral obstruction/ left hydronephrosis/ large parapelvic cyst s/p left nephrostomy 01/2024 at [place] and other problems listed admitted for sepsis due to suspected complicated cystitis. Patient initially on CTX given pansensitive UA however blood cultures with ESBL. Patient transitioned to ciprofloxacin and noted to have generalized itching therefore patient transitioned to ertapenem 500mg q24 renally dosed Patient tolerated ertapenem. Patient with USGIV on L forearm placed 02/15 and good for 29 days. Patient will discharge with for ertapenem until 03/01 Pending nursing teaching for home antibiotics. No acute events, pending discharge likely tomorrow #Sepsis 2/2 complicated cystitis resolving #Gram negative bacteremia, Ecoli ESBL (x ) E coli sepsis likely due to E coli ESBL UTI due to nephrostomy catheter Hx ureteral obstruction/ left hydronephrosis/ large parapelvic cyst s/p left nephrostomy 01/2024 at [place] and exchanged 11/2024 due to obstruction WBC 12k, lactate 1.5, SVT CT ABD/pelvis shows Resolution of left hydronephrosis following interval placement of a percutaneous nephrostomy. Persistent bilateral urothelial thickening and bilateral wall thickening. This is likely chronic although could be correlated with urinalysis. Bilateral nephrolithiasis. No ureteral calculi. Minimal right lower lobe groundglass opacity which favors a mild infectious process. Suspect urinary source +/- RLL pneumonia Patient declined biofire testing 02/12 Urine cx: e coli 02/12 Blood cx: e coli ID Consulted: plan for 14 days abx, discontinued doxy ECOLI with ESBL--discontinued CTX and transitioned to Cipro 02/14; itching noted with cipro, therefore discontinued ContinueErtapenem 500mg q 24 renally dosed, plan for 14 days midline not needed as USGIV placed 02/15, awaiting HH to visit and for teaching Medically stable for discharge. #Insomnia continue melatonin #LLQ spasms continue home oxybutynin and flomax trial oxybutynin 2.5 prn unsuccessful trial bentyl for possible bowel spasm iso chronic diarrhea #SVT Hx of sinus tach managed with metoprolol however missed a.m. medications Presented with SVT in the 160s s/p IV adenosine x 1 with improvement, likely iso sepsis from above Continue CERT[employer]IED MEDICAL CODER dose metoprolol succinate 25 mg BID ECHO reviewed: PASP 50mmhg, EF 60-65% Cardiology recommendations reviewed with plans to continue current mgmt #Metabolic acidosis, normal anion gap (NAG): #CKD IV at baseline Cr ~2.4 discontinue IVF for risk of overload #Chronic diarrhea: At baseline per patient, no indication for stool testing at this time # Bipolar disorder: Continue C[employer]IED MEDICAL CODER oxcarbamazepine Home health on discharge with IV abx x 14 days I spent a total of 45 minutes coordinating, documenting, and providing care for this patient excluding time spent in the performance of separately billed services. Admission and Anticipated Discharge Date Admission Date: February 12, 2025 Subjective NAEO denies any new concerns at this time, eager for discharge, daughter will pick up truck driver tomorrow at [id number] Physical Exam Constitutional: WD/WN, vitals as above Respiratory: normal respiratory effort, lungs clear to auscultation Cardiovascular: RRR, no murmur, no edema Gastrointestinal (Abdomen): normal bowel sounds, soft, nontender, no hepatosplenomegaly Results & Data Results & Data Vital Signs (Past 12 Hours) Vital Signs Temp Pulse Resp BP Pulse Ox O2 Del Method 02/17/25 14:51 36.6 C 74 16 106/69 94 Room Air 02/17/25 07:55 36.5 C 74 18 132/88 94 Room Air Laboratory Results Short CBC 02/17/25 Range/Units 06:01 WBC 5.73 (4.8-10.8) K/ul Hgb 9.6 L (12.0-16.0) g/dl Hct 30.8 L (37.0-47.0) % Plt Count 238 (130-400) K/uL BMP 02/17/25 06:01 Sodium 142 Potassium 4.1 Chloride 117 H Carbon Dioxide 19 L BUN 25 H Creatinine 2.32 H Glucose 89 Calcium 9.2 Medications Administered Home Medications Medication Instructions Recorded Confirmed Last Taken atorvastatin 40 mg tablet (Lipitor) 40 mg PO QAM 07/12/18 02/12/25 02/11/25 pantoprazole 40 mg tablet,delayed 40 mg PO BID 07/12/18 02/12/25 02/11/25 release (Protonix) riboflavin (vitamin B2) 400 mg 400 mg PO QAM 07/12/18 02/12/25 02/11/25 tablet cholecalciferol (vitamin D3) 50 2,000 unit PO QAM 05/16/19 02/12/25 02/11/25 mcg (2,000 unit) capsule (Vitamin D3) oxcarbazepine 300 mg tablet 300 mg PO BID 12/22/21 02/12/25 02/11/25 loperamide 2 mg capsule 2 mg PO TID PRN diarrhea #30 caps 01/18/22 02/12/25 Unknown magnesium oxide 400 mg (241.3 mg 400 mg PO DAILY 11/02/22 02/12/25 02/11/25 magnesium) tablet acetaminophen 325 mg tablet 650 mg (2 x 325 mg) PO Q8H PRN 11/09/22 02/12/25 Unknown fever or pain #60 tabs cyanocobalamin (vitamin B-12) 100 100 mcg PO QAM #30 tabs 11/09/22 02/12/25 02/11/25 mcg tablet (Vitamin B-12) midodrine 5 mg tablet 5 mg PO TID #90 tabs 04/21/23 02/12/25 02/11/25 metoprolol succinate 25 mg 25 mg PO BID 12/14/23 02/12/25 02/11/25 tablet,extended release 24 hr tamsulosin 0.4 mg capsule 0.4 mg PO DAILY #30 caps 12/21/24 02/12/25 02/11/25 hydroxyzine HCl 25 mg tablet 25 mg PO HS 02/12/25 02/12/25 02/11/25 oxybutynin chloride 5 mg tablet 5 mg PO QAM 02/12/25 02/12/25 02/11/25 Active Medications Generic Name Dose Route Start Last Admin Trade Name Freq PRN Reason Stop Dose Admin Acetaminophen/Butalbital/Caffeine 1 tab 02/15/25 10:08 02/16/25 21:59 Butalbital/Acetamin/Caffeine Tab PO 03/17/25 10:07 1 tab Q4H PRN Administration Headache Atorvastatin Calcium 40 mg 02/13/25 09:00 02/17/25 08:45 Atorvastatin 40 Mg Tab PO 03/15/25 08:59 40 mg QAM MARLA Administration Ciprofloxacin 2 drops 02/12/25 17:00 02/17/25 12:26 Ciprofloxacin Hcl 0.3% Op Soln 2.5 Ml Btl OPL 02/17/25 16:59 2 drops Q4H MARLA Administration Dicyclomine HCl 10 mg 02/15/25 13:00 02/17/25 12:26 Dicyclomine Hcl 10 Mg Cap PO 03/17/25 12:59 10 mg QID MARLA Administration Heparin Sodium (Porcine) 5,000 units 02/12/25 16:54 02/17/25 13:45 Heparin Sod 5,000 Unit/0.5 Ml Vial SQ 03/14/25 16:53 Not Given Q8 MARLA Hydroxyzine HCl 25 mg 02/12/25 21:00 02/16/25 21:56 Hydroxyzine Hcl 25 Mg Tab PO 03/14/25 20:59 25 mg HS MARLA Administration Ertapenem 500 mg in 5 mls @ 2 mls/min 02/16/25 12:30 02/17/25 12:29 Invanz 500mg IV 02/22/25 12:29 2 mls/min Q24H MARLA Administration Magnesium Oxide 400 mg 02/13/25 09:00 02/17/25 08:45 Magnesium Oxide 400 Mg Tab PO 03/15/25 08:59 400 mg DAILY MARLA Administration Melatonin 9 mg 02/16/25 21:00 02/16/25 21:56 Melatonin 3 Mg Tab PO 03/18/25 20:59 9 mg HS MARLA Administration Metoprolol Succinate 25 mg 02/12/25 21:00 02/17/25 08:45 Metoprolol Succ 25mg Ext Rel Tab PO 03/14/25 20:59 25 mg BID MARLA Administration Midodrine 5 mg 02/14/25 08:00 02/17/25 12:25 Midodrine Hcl 2.5 Mg Tab PO 03/16/25 07:59 5 mg TID@0800,1200,1700 MARLA Administration Ondansetron HCl 4 mg 02/12/25 15:02 02/16/25 08:16 Ondansetron Inj 2 Mg/Ml 2 Ml Vial IV 03/14/25 15:01 4 mg Q6H PRN Administration Nausea And Vomiting Oxcarbazepine 300 mg 02/12/25 21:00 02/17/25 08:47 Oxcarbazepine 150 Mg Tablet PO 03/14/25 20:59 300 mg BID MARLA Administration Oxybutynin Chloride 5 mg 02/13/25 09:00 02/17/25 08:46 Oxybutynin Chloride 5 Mg Tab PO 03/15/25 08:59 5 mg QAM MARLA Administration Pantoprazole Sodium 40 mg 02/12/25 21:00 02/17/25 08:46 Pantoprazole 40 Mg Tab PO 03/14/25 20:59 40 mg BID MARLA Administration Tamsulosin HCl 0.4 mg 02/13/25 09:00 02/17/25 08:46 Tamsulosin Hcl 0.4 Mg Cap PO 03/15/25 08:59 0.4 mg DAILY MARLA Administration
[2025-02-17] MEDS: ACETAMINOPHEN 1,000 MG/100 ML VIAL IV STA (15:53)
[2025-02-18 07:21] VITALS: O2SAT 95
[2025-02-18 12:40] VITALS: BP 132/91; PULSE 89; RESP 20; TEMP 97.9
--- NOTE | 2025-02-18 12:55 | Discharge Summary ---
Discharge Summary Date of Service February 18, 2025 Principal Dx & Hospital Course #1 = Principal Diagnosis (1) Sepsis: (2) Nephrostomy present: (3) Complicated UTI (urinary tract infection): (4) SVT (supraventricular tachycardia): (5) Metabolic acidosis, normal anion gap (NAG): (6) CKD (chronic kidney disease), stage IV: (7) Chronic diarrhea: (8) Bipolar disorder: Plan Ms Nesbitt is a 69-year-old female with PMH HLD, COPD, CALI, asthma, CKD stage IV, sinus tachycardia, GERD, stress-induced catecholamine mediated cardiomyopathy in 2015 with normalization of LV systolic function, history of recurrent complicated UTIs with ureteral obstruction/ left hydronephrosis/ large parapelvic cyst s/p [place] [facility] [place] other problems listed admitted for sepsis due to suspected complicated cystitis. Patient initially on CTX given pansensitive UA however blood cultures with ESBL. Patient transitioned to ciprofloxacin and noted to have generalized itching therefore patient transitioned to ertapenem 500mg q24 renally dosed Patient tolerated ertapenem. Patient with USGIV on L forearm placed 02/15 and good for 29 days. Patient will discharge with for ertapenem until 03/01 On day of discharge, patient was without acute complaints. #Sepsis 2/2 complicated cystitis resolving #Gram negative bacteremia, Ecoli ESBL (x ) E coli sepsis likely due to E coli ESBL UTI due to nephrostomy catheter Hx ureteral obstruction/ left hydronephrosis/ large parapelvic cyst s/p left [place]rost[place] [facility] [place] exchanged 11/2024 due to obstruction WBC 12k, lactate 1.5, SVT CT ABD/pelvis shows Resolution of left hydronephrosis following interval placement of a percutaneous nephrostomy. Persistent bilateral urothelial thickening and bilateral wall thickening. This is likely chronic although could be correlated with urinalysis. Bilateral nephrolithiasis. No ureteral calculi. Minimal right lower lobe groundglass opacity which favors a mild infectious process. Suspect urinary source +/- RLL pneumonia Patient declined biofire testing 02/12 Urine cx: e coli 02/12 Blood cx: e coli ID Consulted: plan for 14 days abx, discontinued doxy ECOLI with ESBL--discontinued CTX and transitioned to Cipro 02/14; itching noted with cipro, therefore discontinued ContinueErtapenem 500mg q 24 renally dosed, plan for 14 days midline not needed as USGIV placed 02/15, Medically stable for discharge. #Insomnia continue melatonin desired as an outpatient #LLQ spasms continue home oxybutynin and flomax trial oxybutynin 2.5 prn unsuccessful trial bentyl for possible bowel spasm iso chronic diarrhea #SVT Hx of sinus tach managed with metoprolol however missed a.m. 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 Home health on discharge with IV abx x 14 days Notes For Next Care Provider Medication Changes From Visit Bentyl 10mg qid PRN for abdominal spasm Admission HPI Per Admitting Provider 69-year-old female with PMH HLD, COPD, CALI, asthma, CKD stage IV, sinus tachycardia, GERD, stress-induced catecholamine mediated cardiomyopathy in 2015 with normalization of LV systolic function, history of recurrent complicated UTIs with ureteral obstruction/ left hydronephrosis/ large parapelvic cyst s/p [place]rost[place] [facility] [place] other problems listed below who presents to the ED for evaluation of vomiting and fever. [place] [facility] [place]25 for complicated UTI and obstructed left nephrostomy tube which was replaced by IR. Patient reports she developed vomiting yesterday afternoon. She also reports lower abdominal pain. Has chronic back pain that seems to be unchanged from baseline. Reports left nephrostomy tube has been draining adequately. Reports urine had appeared cloudy but is currently clear. Also reports a productive cough. States that this morning she could feel her heart beating in her ears. Denies chest pain and shortness of breath. No lightheadedness, dizziness, diaphoresis, syncopal events. Reports fever of 102. Upon arrival to the ED, patient's heart rate was in the 160s. She was found to be in SVT and received 1 dose of adenosine 6 mg with improvement in HR. Patient with low- grade temp of 37.6. WBC 12K, lactate 1.5. BP is soft at times but generally stable. CT ABD/pelvis shows Resolution of left hydronephrosis following interval placement of a percutaneous nephrostomy. Persistent bilateral urothelial thickening and bilateral wall thickening. This is likely chronic although could be correlated with urinalysis. Bilateral nephrolithiasis. No ureteral calculi. Minimal right lower lobe groundglass opacity which favors a mild infectious process. Patient was also given IV cefepime, IVF, magnesium replacement. Admission Exam Per Admitting Provider Physical Exam: Vitals signs as noted above General Appearance:Obese, no apparent distress Head: normocephalic, Atraumatic Eyes: normal inspection, EOMI Neck: supple, Trachea midline Respiratory/Chest: Normal breath sounds, CTA, No accessory muscle use Cardiovascular: S1, S2, No murmur, tachycardia Abdomen/GI:Soft, mild lower abd tender, Bowel sounds present, L nephrostomy tube Extremities/Musculoskeletal:normal inspection, Trace edema Neurologic/Psych:AAOX3, grossly no focal neurological deficits Skin: normal color, warm Discharge Exam Constitutional WD/WN, vitals as above Respiratory normal respiratory effort, lungs clear to auscultation Cardiovascular RRR, no murmur, no edema Gastrointestinal (Abdomen) normal bowel sounds, soft, nontender, no hepatosplenomegaly Updated Medication List Medication Instructions Recorded Confirmed Type atorvastatin 40 mg tablet (Lipitor) 40 mg PO QAM 07/12/18 02/12/25 History pantoprazole 40 mg tablet,delayed 40 mg PO BID 07/12/18 02/12/25 History release (Protonix) riboflavin (vitamin B2) 400 mg 400 mg PO QAM 07/12/18 02/12/25 History tablet cholecalciferol (vitamin D3) 50 2,000 unit PO QAM 05/16/19 02/12/25 History mcg (2,000 unit) capsule (Vitamin D3) oxcarbazepine 300 mg tablet 300 mg PO BID 12/22/21 02/12/25 History loperamide 2 mg capsule 2 mg PO TID PRN diarrhea #30 caps 01/18/22 02/12/25 Rx magnesium oxide 400 mg (241.3 mg 400 mg PO DAILY 11/02/22 02/12/25 History magnesium) tablet acetaminophen 325 mg tablet 650 mg (2 x 325 mg) PO Q8H PRN 11/09/22 02/12/25 Rx fever or pain #60 tabs cyanocobalamin (vitamin B-12) 100 100 mcg PO QAM #30 tabs 11/09/22 02/12/25 Rx mcg tablet (Vitamin B-12) midodrine 5 mg tablet 5 mg PO TID #90 tabs 04/21/23 02/12/25 Rx metoprolol succinate 25 mg 25 mg PO BID 12/14/23 02/12/25 History tablet,extended release 24 hr tamsulosin 0.4 mg capsule 0.4 mg PO DAILY #30 caps 12/21/24 02/12/25 Rx hydroxyzine HCl 25 mg tablet 25 mg PO HS 02/12/25 02/12/25 History oxybutynin chloride 5 mg tablet 5 mg PO QAM 02/12/25 02/12/25 History dicyclomine 10 mg capsule 10 mg PO QID PRN Abdominal 02/18/25 Rx Discomfort #45 caps ertapenem 1 gram solution for 1 g IV DAILY #11 ea 02/18/25 Rx injection melatonin 3 mg tablet 9 mg (3 x 3 mg) PO HS #0 tabs 02/18/25 Rx Hospital Stay Data Consultations 02/12/25 13:12 ED Decision to Admit Stat 02/12/25 16:54 Consult Cardiology Routine Consult Urology Routine 02/13/25 07:44 Consult Infectious Diseases Routine Diagnostic Imagining Performed 02/12/25 11:15 CT abd pelvis wo con Stat 02/14/25 09:37 CT head/brain wo con Routine Pending Results Patient Have Any Pending Studies at Discharge: No Discharge Instructions Given to Patient (Per Discharging Provider) You were admitted for weakness and feeling poorly and noted to have sepsis due to a blood infection from a severe urinary tract infection. You were started on Ertapenem IV daily due to reaction to ciprofloxacin and unable to find an oral alternative for antibiotic management. You should keep your appointment with Trisha for the nephrostomy tube replacement on 02/20 Please continue follow up with your Urologist and PCP You were started on bentyl to help with abdominal spasms. You can take this as needed for abdominal spasms; however, if you do not notice relief you can discontinue and discuss with your PCP You were started on melatonin for sleep and seemingly noted improvement in sleep Total Time Total Time Spent Total Time Spent (In Minutes): 45
== END 2025-02-18 14:39 | disposition home health service (06) | DRG 698 ==
LOC: ED 10:56 → 2E 13:56 → SUATTDRO 13:56 → 2E 16:21 → 3E 02-16 13:16